=== PATIENT | female | born 1960 | race Caucasian/White ===

== ENCOUNTER 2017-11-16 10:57 | Emergency (ER) | payer OTHER, SELFPAY ==
[2017-11-16 10:58] VITALS: BP 134/70; PULSE 72; RESP 16; TEMP 36.9; O2SAT 98; BMI 29.9
--- NOTE | 2017-11-16 11:17 | CT_ITS ---
STUDY: CT ABDOMEN AND PELVIS WITHOUT CONTRAST REASON FOR EXAM: Female, 57 years old. Abdominal pain and constipation. RADIATION DOSAGE (If Supplied By Facility): CTDIvol = ( 10.97 ) mGy, DLP = ( 545.32 ) mGycm TECHNIQUE: Transaxial images were obtained from the dome of the diaphragm to the symphysis pubis without oral contrast, and without intravenous contrast. Sagittal and coronal images were reconstructed. Individualized dose optimization techniques were used for this CT. COMPARISON: Comparison is made with prior study dated September 30, 2014. FINDINGS: The visualized lung bases are unremarkable. The visualized portions of the heart are within normal limits. Normal liver. The patient is status post cholecystectomy. Normal spleen. Normal pancreas. Normal bilateral adrenal glands. Mild degree of right hydronephrosis. This is unchanged. Normal left kidney. There is a small hiatal hernia. Normal small intestine. There are multiple colonic diverticula consistent with diverticulosis. The appendix is visualized and appears normal. There is scattered atherosclerotic calcification of the abdominal aorta, without a demonstrated aneurysm. Normal inferior vena cava. Normal retroperitoneum. Normal urinary bladder. There is a 3.5 cm x 3.9 cm cyst in the left ovary. Normal abdominal wall. There are diffuse degenerative changes of the visualized lumbar spine. Mild degree of loss of height of the superior endplate of the T12 vertebrae. CT/Abdomen/Pelvis without Cont IMPRESSION: 3.5 cm x 3.9 cm left ovarian cyst. This is slightly enlarged and prior examination. Sigmoid diverticulosis. Electronically Signed: Joaquin Ellington MD at 12:34 EDT Tel [phone], Service support ,
[2017-11-16] MEDS: 0.9% Normal Saline 1,000 ML 1000 ML IV (11:27)
[2017-11-16] MEDS: Ondansetron 4 MG/2 ML Vial IV (11:28)
[2017-11-16] MEDS: Morphine 4 MG/ML Syringe IV ×2 (11:28→12:53)
[2017-11-16 11:33] LABS: Absolute Lymphocyte Count 1.62 X10^3/ul (0.83-4.51); Hemoglobin 12.6 g/dl (12.0-15.0); Lymphocyte # 1.62 X10^3/ul (4.0); Lymphocyte % 26.1 % (19-41); Mean Corp Hgb Conc 34.1 g/gl (32-36); Mean Corpuscular Hgb 29.1 pg (27.0-32.0); Mean Corpuscular Volume 85.5 fL (81-99); Mean Platelet Vol. 10.1 fl (6.2-12.0); Monocyte# 0.62 X10^3/uL; Neutrophil # 3.95 X10^3/uL (2.7-7.7); Neutrophil % 63.7 % (47-70); Platelet Count 281 K/mm3 (150-450); RBC Distribution Width CV 12.4 % (11.6-14.6); Red Blood Count 4.33 M/mm3 (4.2-5.4); White Blood Count 6.2 K/mm3 (4.4-11.0)
[2017-11-16 11:34] LABS: POSITIVE COUNT NO; POSITIVE DIFFERENTIAL NO; POSITIVE MORPHOLOGY NO
[2017-11-16 11:54] LABS: AST(SGOT) 57 U/L (15-37); Alanine Aminotransfer ALT/SGPT 72 U/L (13-56); Albumin, Serum 3.7 g/dL (3.2-5.0); Alkaline Phosphatase 79 U/L (45-117); Anion Gap 6 (5-15); BUN 11 mg/dL (7-18); BUN/Creat Ratio 15.5 RATIO (10-20); Bilirubin, Direct 0.18 mg/dL (0.00-0.30); Calcium,Total 9.2 mg/dL (8.5-10.1); Chloride 107 mmol/L (98-107); Creatinine, Serum 0.71 mg/dL (0.55-1.02); EST Glomerular Filtration Rate 89 mL/min (>60); Est Glom Filt Rate - Afr Amer 108 mL/min (>60); Estimated Creatinine Clearance 76.77 ml/min; Globulin 3.7 g/dL (2.2-4.2); Glucose 111 mg/dL (74-106); Lipase 138 U/L (73-393); Potassium 3.9 mmol/L (3.5-5.1); Protein, Total 7.4 g/dL (6.4-8.2); Sodium Level 140 mmol/L (136-145)
[2017-11-16 12:26] LABS: Bacteria 0 SEEN /hpf (None Seen); Mucous, Urine 0 SEEN /hpf (<or=2+); Red Blood Cells-Urine 0 SEEN /hpf (0-5); Squamous Epithelial Cells - UA 0 SEEN /hpf (5-10)
[2017-11-16 12:31] LABS: Color, Urine Yellow (Yellow); Glucose, Dipstick Normal (Normal); Ketone-Dipstick Negative (Negative); Leukocyte Esterase-Dipstick Negative /ul (Negative); Nitrite-Dipstick Negative (Negative); Occult Blood-Urine 10 /ul (Negative); Protein-Dipstick Negative (Negative); Specific Gravity, Urine 1.005 (1.002-1.030); Urine Bilirubin Dipstick Negative (Negative); Urine Clarity Clear (Clear); Urine Urobilinogen Normal (Normal)
[2017-11-16 12:39] LABS: White Blood Cells 0-5 SEEN /hpf (0-5)
--- NOTE | 2017-11-16 12:43 | US_ITS ---
STUDY: ULTRASOUND OF THE FEMALE PELVIS - COMPLETE REASON FOR EXAM: Female, 57 years old. Ovarian cyst seen on CT scan. LMP: The patient is postmenopausal. TECHNIQUE: Transvaginal TECHNICAL QUALITY: Adequate. COMPARISON: None. FINDINGS: The uterus is anteverted and is in a midline position. The uterus measures 7.8 cm x 4.7 cm x 3.5 cm. Normal uterine cervix. The endometrium measures 3.8 mm in thickness, and is hyperechoic. There is no demonstrated endometrial mass. There is a 1 cm x 1.1 cm fibroid in the lower uterine segment. I.U.D. - The patient does not have an I.U.D. The right ovary is non-visualized. The left ovary is visualized. The left ovary measures 4 cm x 2.7 cm x 2.9 cm. There is a 3.6 cm x 2.6 cm cyst in the left ovary. There is no visualized left adnexal mass or complex lesion. There is normal arterial and normal venous vascularity. There is no fluid in the cul-de-sac. Polycystic ovary disease: No. US/Transvaginal Non- IMPRESSION: 3.6 cm x 3.6 cm cyst in the left ovary. Small fibroid seen in the lower uterine segment. Electronically Signed: Joaquin Ellnigton MD at 14:26 EDT Tel [phone], Service support ,
[2017-11-16 13:02] VITALS: BP 123/73; PULSE 60; RESP 16; O2SAT 100
--- NOTE | 2017-11-16 14:55 | ED.DCSUM_ITS ---
- ER Visit Summary Date of Service: 11/16/17 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: Abdominal pain History of Present Illness: The patient is a [address] Grace and Dr. Smith. She reports that she has lower abdominal pain began 2 weeks ago. She was diagnosed clinically with diverticulitis and was placed on Cipro and Flagyl. She finished these 4 days ago and is continuing to have discomfort. Patient claims of a stabbing pain is 10 at 10 worsening a 10 currently. Is worsened by movement or walking. Is relieved by remaining still. She has had nausea without vomiting. She reports her last bowel was 1 week ago. Typically she has a bowel movement daily. She denies any dysuria or frequency. Physical Examination: Vitals: Stable. Afebrile. General: Well-nourished and well-developed. Head: Normocephalic atraumatic. Neck: Supple, no lymphadenopathy. No JVD. Nontender. Cardiovascular: Regular rate and rhythm. No murmurs. Respiratory: No respiratory distress. Clear to auscultation bilaterally. Abdominal: Soft, moderate suprapubic tenderness to palpation, nondistended, normal bowel sounds. No guarding, rebound, or peritoneal signs. Rectal: No stool in the vault. Back: Nontender. Extremities: Nontender, no edema. Skin: Normal color, no rash. Neurologic: Alert and oriented ?3. Cranial nerves II through XII are intact. Normal strength and sensation. Psych: Normal affect. Test Results: CBC is normal. Chem-7 is more for glucose 111. LFTs are marked for an ALT of 72 and AST 57. Lipase is normal. Transvaginal ultrasound shows a 3.6 x 3.6 cm left ovarian cyst. Once admitted fibroid. CT flank shows a normal appendix and a 3.5 x 3.9 cm left ovarian cyst. Diverticulosis, but no diverticulitis. Normal appendix. Emergency Department Course and Treatment: Patient initially had a CT scan. Due to the concern of an ovarian cyst in summary that is postmenopausal the ultrasound and a CA 125 were ordered. Treatment Plan: Patient be discharged with magnesium citrate. She is instructed to follow-up with Dr. Grace in 1-2 days if she does not have a bowel movement with this. [facility] is [facility] for further evaluation of the ovarian cyst. Return to the emergency department for any worsening symptoms. Disposition: To home in improved and stable condition. Impression: 1. Constipation. 2. Left ovarian cyst. 3. Diverticulosis. This note was generated with [employer] dictation software. It may contain incorrect words, spelling, and punctuation that were not noted in review of the chart prior to signing ED Disposition - Plan for ED Patient: Disposition: Home or Assisted Living 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: Abd Pain Instructions: ED Constipation, ED Cyst Ovarian Prescriptions: Magnesium Citrate [Citrate Of Magnesia] 300 ml PO X1 #1 bottle Referrals: Cleo Maynard CNM [Certified Nurse [employer]] - 3-5 Days Bar Grace MD [STAFF PHYSICIAN] - 1-2 Days if not improving
[2017-11-16 15:03] VITALS: BP 118/75; PULSE 71; RESP 15; O2SAT 98
[2017-11-18 16:05] LABS: Cancer Antigen 125 2303 15.8 U/mL (0.0-38.1)
== END 2017-11-16 15:05 | disposition home or self-care (01) ==
PROVIDERS: Emergency Provider Emergency Medicine; Family Provider Family Medicine; PCP Family Medicine
DX: K59.00 Constipation, unspecified (principal); N83.202 Unspecified ovarian cyst, left side; K57.90 Diverticulosis of intestine, part unspecified, without perforation or abscess without bleeding; E03.9 Hypothyroidism, unspecified; Z78.0 Asymptomatic menopausal state; Z79.82 Long term (current) use of aspirin; Z79.899 Other long term (current) drug therapy
CPT/HCPCS: 74176; 76830; 80048; 80076; 81001; 83690; 85025; 86304; 96361; 96374; 96375; 96376; 99283; J7030; A4216; J2405

== ENCOUNTER → 2017-11-29 07:26 | Outpatient (CLI) | payer OTHER, SELFPAY ==
--- NOTE | 2017-11-29 08:35 | RAD_ITS ---
STUDY: BARIUM ENEMA. REASON FOR EXAM: Female, 57 years old. History of prior colon resection. FLUOROSCOPY TIME (if supplied): (1:00) minutes/seconds TECHNIQUE: A health safety manager film was obtained. Following this, barium was introduced retrograde through the rectum. The entire colon was opacified. COMPARISON: None. FINDINGS: On the health safety manager film, the gas pattern is unremarkable. Phleboliths are seen in the pelvis. Contrast was introduced retrograde through the rectum. Entire colon was opacified. There is diffuse diverticulosis of the sigmoid colon and left hemicolon without radiographic cancer of diverticulitis. Residual fecal material is seen in the right hemicolon. A polypoid lesion cannot be ruled out. There is no evidence of antegrade or retrograde obstruction to the flow of contrast. RAD/Barium Enema w/Air Contrast IMPRESSION: Diverticulosis of the left hemicolon without evidence of obstruction or narrowing. Scattered residual fecal material in the right hemicolon limiting assessment for small polyps. Electronically Signed: Joaquin Ellington MD at 14:24 EDT Tel [phone], Service support ,
== END ==
PROVIDERS: Family Provider Family Medicine; PCP Family Medicine; Visit Provider Surgery
DX: R10.9 Unspecified abdominal pain (principal)
CPT/HCPCS: 74280

== ENCOUNTER → 2017-12-22 12:02 | Outpatient (CLI) | payer OTHER, SELFPAY ==
--- NOTE | 2017-12-22 10:50 | COLBX_PTH ---
PATIENT: EREN HAWLEY LOC: [facility] U#:[id number] AGE/SX: 65/F ROOM: RE12/22/[address]: Dr. Lola Grace MD : 1960 BED: DIS: SPEC #: [id number] RECD: 12/22/17 12:03 STATUS: ALMA NKECHI #: [id number] ANASTASIYA: 12/22/17 10:[address]: Lola Grace DEPT: SURGICAL PATHOLOGY RECD BY: Joe Lowery ENTERED: 12/22/17 13:08 SP TYPE: COLON BX OTHR DR: MD Dr. Joe Hinson MD Tissues: Sigmoid colon biopsy Procedures: Surgery Specimen Level IV HEADER OPERATION: Colonoscopy with biopsy PRE-OP DIAGNOSIS: K57.92, R93.3, R10.32, K59.07 TISSUE SUBMITTED: Sigmoid colon biopsy MICROSCOPIC DIAGNOSIS Sigmoid colon, biopsy: Fragments of colonic mucosa with focal changes consistent with ischemic colitis. SJ:selvin 12/23/17 COMMENT The results were reported to Dr. Grace on 01/23/18. Please make reference to previous specimen ([id number]) sigmoid colon, colectomy with diagnosis of diverticulosis and diverticulitis. This case has been reviewed in consultation with Dr. Odonnell who concurs with the above diagnosis. MICROSCOPIC DESCRIPTION Slides are reviewed. GROSS DESCRIPTION Received in fixative is one container labeled with the patient's name and designated sigmoid biopsy. The specimen consists of two pieces of lester soft tissue measuring in aggregate 0.5 x 0.2 x 0.1 cm. The specimen is totally submitted in one cassette. / Joceline 12/22/17 TC:5 CPT: 91664
== END ==
PROVIDERS: Family Provider Family Medicine; PCP Family Medicine; Visit Provider Surgery
DX: K57.92 Diverticulitis of intestine, part unspecified, without perforation or abscess without bleeding (principal); R93.3 Abnormal findings on diagnostic imaging of other parts of digestive tract; R10.32 Left lower quadrant pain; K59.00 Constipation, unspecified
CPT/HCPCS: 88305

== ENCOUNTER 2017-12-23 05:39 | Inpatient (IN) | payer OTHER, SELFPAY ==
[2017-12-16 14:05] VITALS: BP 107/76; PULSE 69; RESP 17; TEMP 36.8; O2SAT 98; BMI 29.8
--- NOTE | 2017-12-16 14:29 | SDCEKG_ITS ---
Test Reason : Blood Pressure : / mmHG Vent. Rate : 063 BPM Atrial Rate : 063 BPM P-R Int : 170 ms QRS Dur : 084 ms QT Int : 412 ms P-R-T Axes : 033 -10 037 degrees QTc Int : 421 ms Normal sinus rhythm Nonspecific T wave abnormality Confirmed by SAMRA BHATT, COLT ([id number]), news editor ANI ROMERO ([id number]) on 12/20/2017 2:34:10 PM Referred By: Joe Ohara Confirmed By:COLT CABRALES MD
[2017-12-23] VITALS (15 sets, daily range): BP systolic 90–116; BP diastolic 49–70; PULSE 66–90; RESP 14–18; TEMP 36.6–38.1; O2SAT 94–100; BMI 29.8
--- NOTE | 2017-12-23 07:15 | OV_PTH ---
PATIENT: EREN HAWLEY LOC: [facility] U#:[id number] AGE/SX: 57/F ROOM: WY325 RE12/23/[address]: Dr. Joe Ohara MD : 1960 BED: 1 DIS: 12/26/2017 SPEC #: [id number] RECD: 12/24/17 10:41 STATUS: ALMA REIsrael #: [id number] ANASTASIYA: 12/23/17 07:[address]: Joe Ohara DEPT: SURGICAL PATHOLOGY RECD BY: Joe Lowery ENTERED: 12/24/17 11:49 SP TYPE: OVARY OTHR DR: Dr. Yasir Smith MD Tissues: A - Right ovary B - Left ovary C - Colon, NOS D - Colon Donuts E - Colon Donuts Procedures: Surgery Specimen Level III Surgery Specimen Level V HEADER OPERATION: Redo laparoscopic sigmoid colectomy/low anterior resection PRE-OP DIAGNOSIS: Lower abdominal pain; diverticulosis of large intestine without perforation or abscess without bleeding; nausea TISSUE SUBMITTED: A ? Right fallopian tube and ovary, B ? Left fallopian tube and ovary, C ? Sigmoid colon and appendix, D ? Distal donut (rectal), E ? Proximal donut (sigmoid) MICROSCOPIC DIAGNOSIS A. Right fallopian tube and ovary: Ovary ? 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 Mesothelial inclusion cysts. Fallopian tube - no pathologic diagnosis. See comment. B. Left fallopian tube and ovary: Ovary - simple serous cystadenoma (3 cm in greatest dimension). Fallopian tube - no pathologic diagnosis. C. Sigmoid colon and appendix: Diverticulosis and diverticulitis. Appendix, no pathologic diagnosis. Pericolonic lymph node with reactive changes. See comment. D. Distal donut (rectal): Colonic donut, no pathologic diagnosis. E. Proximal donut (sigmoid): Colonic donut, no pathologic diagnosis. SJ:selvin 12/28/17 COMMENT A. Calcification is noted in the area of papillary serous cystadenoma and also in the mesothelial inclusion cyst. C. The largest possible lymph node consists of an area of fat necrosis and inflammation. Please make reference to previous specimen ([id number]) sigmoid colon, biopsy with diagnosis of fragments of colonic mucosa with focal changes consistent with ischemic colitis and ([id number]) sigmoid colon, colectomy with diagnosis of diverticulosis and diverticulitis. MICROSCOPIC DESCRIPTION Slides are reviewed. GROSS DESCRIPTION A - Received in fixative is one container labeled with the patient's name and designated right fallopian tube and ovary. The specimen consists of a fallopian tube and ovary. The fallopian tube measures 3 cm in length and 0.6 cm in diameter. The fimbrial end is identified. No tubo-ovarian adhesions are noted. Also present in the container is a detached piece of tubular tissue, a possible portion of fallopian tube, measuring 1 cm in length and 0.3 cm in diameter. The ovary measures 3 x 2 x 0.8 cm. The surface of the ovary shows a polypoid tissue measuring 0.5 cm in greatest dimension. Wine And Spirits Clerk sections are submitted in three cassettes as follows: 1 ? fallopian tube and also possible detached fragment of fallopian tube, 2 & 3 ? ovary (cassette 2 also contains the polypoid lesion on the surface). Almost 90% of the ovary is submitted. / SJ:rg 12/24/17 B - Received in fixative is one container labeled with the patient's name and designated left fallopian tube and ovary. The specimen consists of a fallopian tube and detached ovary. The fallopian tube measures 3 cm in length and 0.5 cm in diameter. The fimbrial end is identified. Sections do not reveal any mass lesion. The soft to cystic ovary measures 3 x 3 x 2.5 cm and weighs 18 gm. The outer surface is smooth without any cut lesion. Almost the entire ovary is replaced by a cyst filled with clear fluid. The cyst wall is smooth and measures up to 0.2 cm in thickness. No mass lesions are identified. Wine And Spirits Clerk sections are submitted in three cassettes as follows: 1 ? fallopian tube, 2 & 3 ? ovary. / SJ:rg 12/24/17 C - Received in fixative is one container labeled with the patient's name and designated sigmoid colon and appendix. The specimen consists of a previously, partially opened segment of colon measuring 15 cm in length. The serosal surface is congested. One resection margin is open and the other resection margin is stapled. The mucosa shows focal area of bluish discoloration. Also present in the container is an appendix measuring 4.5 cm in length and up to 0.5 cm in diameter. The attached periappendiceal adipose tissue measures up to 1 cm in thickness. Sections of the appendix reveal almost obliterated lumen. The entire appendix is submitted in one cassette, #1. More sections and dictation will follow after additional fixation. / : 12/24/17 Sections reveal multiple diverticula. A few of the diverticula are filled with fecal material. No obviously ruptured diverticula are noted. Blue dye discoloration is noted in the area of the diverticula. Sections of pericolonic adipose tissue reveal multiple lymph nodes. The largest lymph node measures 1.5 cm in greatest dimension. Wine [employer] Spir[employer] Clerk sections are submitted in six cassettes as follows: 1 ? appendix, 2 ? resection margin, open resection margin is inked black, 3 & 4 ? diverticula, 5 ? largest lymph node telephone service representative section, 6 ? pericolonic adipose tissue with possible lymph nodes. / : 12/27/17 D - Received in fixative is one container labeled with the patient's name and designated distal donut (rectal). The specimen consists of a donut-shaped piece of colonic tissue measuring 1.5 x 1 x 0.5 cm. No lesion is identified. The specimen is sectioned and submitted entirely in one cassette. / : 12/24/17 E - Received in fixative is one container labeled with the patient's name and designated proximal donut (sigmoid). The specimen consists of a donut-shaped piece of colonic tissue measuring 2 x 1.5 x 0.5 cm. Multiple sutures are noted. Wine [employer] Spir[employer] Clerk sections are submitted in one cassette. / : 12/24/17 TC:1 CPT: 37803 x3, 47285 x3
--- NOTE | 2017-12-23 08:03 | PCM.OPRPT ---
Report of Operation Date of Procedure: 12/23/17 Pre-Operative Diagnosis: Recurrent diverticulitis stents requested by general surgery Post-Operative Diagnosis: Same Surgery/Procedure Performed:: Cystoscopy and bilateral stent placement Description of Surgical Findings:: 57-year-old female was positioned on the table in dorsal lithotomy position she was under anesthesia the urethra and vaginal area were prepped and draped in usual sterile fashion when the bladder with a 21 [place] cystourethroscope entire length of the urethra is normal the bladder was normal no tumors or stones seen within the bladder I then cannulated the normal left ureteral orifice and advanced Pollack catheter all the way to the kidney, I then cannulated the right ureteral orifice and advanced the Pollack catheter over to the kidney drain the bladder and put a catheter in and the Pollack catheters were secured to the bag patient was then released to general surgery. Type of Anesthesia:: General Drains: stents - Admit VTE Documentation VTE Present on Admission: No VTE Mechan Device Prophylaxis: SCD's
--- NOTE | 2017-12-23 08:32 | PCM.OPRPT ---
Report of Operation Date of Procedure: 12/23/17 Pre-Operative Diagnosis: (1) Thickened endometrium (2) Persistent left ovarian cysts Post-Operative Diagnosis: Same Surgery/Procedure Performed:: (1) Attempted dilation of cervix Type of Anesthesia:: General Drains: stents Description of Procedure: Patient had stents placed by . Attention then turned to vaginal cavity where anterior cervix grasped with tenaculum. Cervix was stenotic & unable to be dilated. Thus planned hysteroscopy with D&C was aborted. Patient then prepped for laparoscopic surgery & case turned over to . Once the ovaries were identified & I assisted in the removal.
[2017-12-23] MEDS: Lubricating Jelly 60 GM Tube 30 GM TOPICAL ×2 (08:41)
[2017-12-23] MEDS: Bupivacaine Mpf 0.5% 30 ML VIAL (12:38)
--- NOTE | 2017-12-23 12:38 | PCM.OPRPT ---
Report of Operation Date of Procedure: 12/23/17 Pre-Operative Diagnosis: (1) Thickened endometrium (2) Persistent left ovarian cysts, LLQ pain, stenosis at 15-20cm on colonoscopy, ? recurrent diverticulitis Post-Operative Diagnosis: (1) Thickened endometrium (2) Persistent left ovarian cysts, LLQ pain, stenosis at 15-20cm on colonoscopy, ? recurrent diverticulitis, area of stenosis distal to anastomosis, normal appendix Surgery/Procedure Performed:: laparoscopic lysis of adhesions, left oopherectomy, right salpingoopherectomy, left salpingectomy, redo laparoscopic sigmoid colectomy/low anterior resection, laparoscopic mobilization of the splenic flexure, laparoscopic appendectomy Description of Surgical Findings:: as above dentofacial orthopedics dentist: Aniya Wadsworth dentofacial orthopedics dentist: Lola Grace Type of Anesthesia:: General Anesthesiologist: Heraclio Toth - ASA2 Specimen's removed: left ovary, right tube and ovary, rectosigmoid, left tube, donuts - proximal and distal , appendix Drains: stents - removed - dowd - 1200 Estimated Blood Loss (mL): 100 Fluids Replaced: 2750 Description of Procedure: The patient was brought to the operating suite. Sign in was performed verifying patient, site, procedure, position, and DVT prophylaxis with SCDs. Patient received Cefotetan 2gm. Preoperative bowel prep of mechanical and antibiotic comprised of GoLYTELY and then neomycin and Flagyl 1 g 3 doses evening before was given. Following induction of general anesthetic, the patient was placed in a modified lithotomy position and care being taken to or by pressure points in the legs and arms. An upper body strap was placed and a upper body warmer was placed. Dr. Fred Johnson was present. He performed cystoscopy and bilateral ureteral catheter placement. this was dictated under separate cover. Dr. Walt Olson was present. She was planning to perform hysteroscopy and D&C. Due to a very stenotic cervical os, she could not perform dilation in this part of the procedure was aborted. Following this, a rectal washout was performed with dilute Betadine solution. The patients abdomen and perineal area were then prepped and draped in the usual fashion. Timeout was performed verifying patient, site, position. Local anesthetic was injected just below the umbilicus. Incision made and dissection carried down to the umbilical root fascia. 2 stay sutures were placed. Incision made in the fascia, the peritoneum entered under direct visualization. A 10 mm Galloway trocar was inserted and secured with the stay sutures. Pneumoperitoneum to 15 mmHg was insufflated. patient was noted to have midline, small bowel adhesions 2 5mm ports were placed in the right lateral area and later in the left paramedian position and a 10/12 port were placed in the right lower quadrant inferior laterally. Adhesions were taken down using Harmonic scalpel. Visual inspection revealed a normal-appearing liver with no significant abnormalities. there were dense adhesions of the sigmoid colon to the right and left pelvis. Initially the areas marked with Ruchi ink by Dr. Grace yesterday were not well visible. These adhesions were taken down sharply and using the Harmonic scalpel. Dr. Olson was present for this portion of the case. There was planned to perform bilateral salpingo-oophorectomy due to abnormal appearing ovaries on ultrasound. The left ovary was more atypical in appearance than the right. With mobilization of where the sigmoid colon was adherent to the left tubo-ovarian structures, the left ovary was able to be identified, the right tube structures were densely adherent to the lateral peritoneum. This peritoneum and partially removed when the patient had her previous segmental sigmoid resection for acute diverticulitis. due to the degree of inflammation and adhesions and the fact that the iliac vessels could be seen, but the ureter could not clearly be identified, a left oophorectomy was performed by Dr. Olson and myself, but initially the tube structure was left intact. next, mobilization of the adhesions to the right tube and ovary structures were undertaken. The patient had a previous tubal ligation. The right tube and ovary and the remnant of the tube attached to the uterus proximal to the tubal ligation was fully mobilized and dissected with the Harmonic scalpel. There was some oozing from the area next to the uterus which was controlled with electrocautery. Once both ovaries and the right tube were removed, they were placed into an Endobag and remained in the right abdomen. These were removed. When the incision was made later on in the case to remove the sigmoid colon. Once this was completed, mobilization the avascular plane was undertaken from the ascending colon down to the area of the mid sigmoid. As the patient had undergone a previous segmental sigmoid resection with handsewn anastomosis, there were dense adhesions as described previously towards the left side into the left gutter. However, a window could be seen below the previous resected segment anastomosis. As this window was entered. This allowed mobilization more proximally and then somewhat distally with the colon proximal and distal anastomosis similarly mobilized off of the adhesions to the left pelvic sidewall, leaving the ileocolic residual mesentery in place. As mobilization progressed, the left and right ureters were able to be visualized and manipulated with palpation via the grasper instruments feeling resistance from the catheters assuring that the ureters were intact.. Once this left-sided mobilization was undertaken, dissection carried down to the area posterior to the rectum. there were noted to be very dense adhesions and chronic induration posterior to the area that was marked by Dr. Grace. Her Ruchi ink was clearly identifiable and a thickened chronically inflamed area somewhat distal to the previous anastomosis. Once this was fully mobilized, attention was turned to mobilization of the splenic flexure. Dissection was carried up along the descending colon to the splenic flexure. With great care taken to avoid injury to the splenic flexure, the marginal artery or the spleen itself. Dissection was also carried out dividing the lesser sac at approximately abdominal midline. In freeing up the lesser sac, dividing it with Harmonic scalpel up to and around the splenic flexure. The pancreas was clearly visualized. At this point, the splenic flexure and distal transverse colon were fully mobilized. at this point with good dissection. The pelvis a 60 mm echelon stapler with a thick load was placed and fired to transect the rectum. With full dissection of the mesentery and full mobilization the colon, the umbilical incision was extended and a wound protector placed. The sigmoid colon were delivered through the wound protector. At this point at the planned transection point of the proximal sigmoid colon, the pericolonic were fully mobilized to the margin of the bowel using the harmonic scalpel. The bowel was transected family with a 10 blade scalpel. A 29 mm CEA circular stapler anvil was then placed in the descending colon region and a 2-0 Prolene pursestring suture was used to close the bowel around the anvil. the bowel seemed to tent over the DIAMOND mesentery remnant and the ureter and left tubo-ovarian structure. Harmonic Scalpel was used to divide and dissect this tubo-ovarian structure off of both the left ureter which was clearly identified throughout and the adhesions to the DIAMOND remnant. This allowed for good laying of the descending colon down into the pelvis. At this point, Dr Grace proceeded down to the rectum. Rigid proctoscopy was performed after flooding the pelvis with saline. Insufflation demonstrated no leak at the rectal staple line. The staple line was felt to be approximately 13 cm. Next the 29 CEA stapler was lubricated and placed through the rectum up to the staple line. The spike was then opened just anterior to the previous echelon stapler line and the anvil properly seated onto the stapler and brought down to mid gap. The stapler was fired released and withdrawn from the rectum. The proximal and distal doughnuts were noted to be intact. Repeat proctoscopy was again performed again with the pelvis being flooded with saline. Air left in the rectum with insufflation and there was no intra-abdominal leakage noted. The anastomosis was noted to be at 13 cm from the anal verge I performed an appendectomy dividing the mesoappendix with the Harmonic scalpel and the base of the appendix with the regular load stapler. The appendix was removed the right lower quadrant port site. Pneumoperitoneum was released and the umbilical incision was closed with running 0 PDS sutures with the 2 sutures meeting and closed just above the umbilicus. Pneumoperitoneum was reestablished. The right lower quadrant fascial defect was closed with a running 0 PDS suture. Visual inspection revealed no material adhered to the midline closure. The 5mm ports were removed under direct visualization with no signs of bleeding. Pneumoperitoneum was released. Right lower quadrant fascial suture was secured. Subcutaneous tissue at the level of the umbilicus reapproximated with interrupted 3-0 Vicryl sutures. Skin was closed with interrupted and running 4-0 Monocryl subcuticular sutures. Steri-Strips and bandages were applied. The patient was taken from lithotomy position and placed in the standard supine position. The Dowd was removed. the ureteral catheters were removed and they were noted to be intact. All sponge and instrument counts were correct. The patient was extubated. The patient was brought to recovery room in stable condition. - Admit VTE Documentation VTE Present on Admission: No VTE Mechan Device Prophylaxis: SCD's VTE Pharm Prophylaxis ordered?: Yes
--- NOTE | 2017-12-23 12:43 | OP.PCM_ITS ---
Report of Operation Date of Procedure: 12/23/17 Pre-Operative Diagnosis: (1) Thickened endometrium (2) Persistent left ovarian cysts, LLQ pain, stenosis at 15-20cm on colonoscopy, ? recurrent diverticulitis Post-Operative Diagnosis: (1) Thickened endometrium (2) Persistent left ovarian cysts, LLQ pain, stenosis at 15-20cm on colonoscopy, ? recurrent diverticulitis , area of stenosis distal to anastomosis, normal appendix Surgery/Procedure Performed:: laparoscopic lysis of adhesions, left oopherectomy , right salpingoopherectomy, left salpingectomy, redo laparoscopic sigmoid colectomy/low anterior resection, laparoscopic mobilization of the splenic flexure, laparoscopic appendectomy Description of Surgical Findings:: as above jewel sawyer: Aniya Wadsworth jewel sawyer: Lola Grace Type of Anesthesia:: General Anesthesiologist: Heraclio Toth - ASA2 Specimen's removed: left ovary, right tube and ovary, rectosigmoid, left tube , donuts - proximal and distal , appendix Drains: stents - removed - dowd - 1200 Estimated Blood Loss (mL): 100 Fluids Replaced: 2750 Description of Procedure: The patient was brought to the operating suite. Sign in was performed verifying patient, site, procedure, position, and DVT prophylaxis with SCDs. Patient received Cefotetan 2gm. Preoperative bowel prep of mechanical and antibiotic comprised of GoLYTELY and then neomycin and Flagyl 1 g 3 doses evening before was given. Following induction of general anesthetic, the patient was placed in a modified lithotomy position and care being taken to or by pressure points in the legs and arms. An upper body strap was placed and a upper body warmer was placed. Dr. Fred Johnson was present. He performed cystoscopy and bilateral ureteral catheter placement. this was dictated under separate cover. Dr. Walt Olson was present. She was planning to perform hysteroscopy and D& C. Due to a very stenotic cervical os, she could not perform dilation in this part of the procedure was aborted. Following this, a rectal washout was performed with dilute Betadine solution. The patient?s abdomen and perineal area were then prepped and draped in the usual fashion. Timeout was performed verifying patient, site, position. Local anesthetic was injected just below the umbilicus. Incision made and dissection carried down to the umbilical root fascia. 2 stay sutures were placed. Incision made in the fascia, the peritoneum entered under direct visualization. A 10 mm Galloway trocar was inserted and secured with the stay sutures. Pneumoperitoneum to 15 mmHg was insufflated. patient was noted to have midline, small bowel adhesions 2 5mm ports were placed in the right lateral area and later in the left paramedian position and a 10/12 port were placed in the right lower quadrant inferior laterally. Adhesions were taken down using Harmonic scalpel. Visual inspection revealed a normal-appearing liver with no significant abnormalities. there were dense adhesions of the sigmoid colon to the right and left pelvis. Initially the areas marked with Ruchi ink by Dr. Grace yesterday were not well visible. These adhesions were taken down sharply and using the Harmonic scalpel. Dr. Olson was present for this portion of the case. There was planned to perform bilateral salpingo-oophorectomy due to abnormal appearing ovaries on ultrasound. The left ovary was more atypical in appearance than the right. With mobilization of where the sigmoid colon was adherent to the left tubo- ovarian structures, the left ovary was able to be identified, the right tube structures were densely adherent to the lateral peritoneum. This peritoneum and partially removed when the patient had her previous segmental sigmoid resection for acute diverticulitis. due to the degree of inflammation and adhesions and the fact that the iliac vessels could be seen, but the ureter could not clearly be identified, a left oophorectomy was performed by Dr. Olson and myself, but initially the tube structure was left intact. next, mobilization of the adhesions to the right tube and ovary structures were undertaken. The patient had a previous tubal ligation. The right tube and ovary and the remnant of the tube attached to the uterus proximal to the tubal ligation was fully mobilized and dissected with the Harmonic scalpel. There was some oozing from the area next to the uterus which was controlled with electrocautery. Once both ovaries and the right tube were removed, they were placed into an Endobag and remained in the right abdomen. These were removed. When the incision was made later on in the case to remove the sigmoid colon. Once this was completed, mobilization the avascular plane was undertaken from the ascending colon down to the area of the mid sigmoid. As the patient had undergone a previous segmental sigmoid resection with handsewn anastomosis, there were dense adhesions as described previously towards the left side into the left gutter. However, a window could be seen below the previous resected segment anastomosis. As this window was entered. This allowed mobilization more proximally and then somewhat distally with the colon proximal and distal anastomosis similarly mobilized off of the adhesions to the left pelvic sidewall , leaving the ileocolic residual mesentery in place. As mobilization progressed, the left and right ureters were able to be visualized and manipulated with palpation via the grasper instruments feeling resistance from the catheters assuring that the ureters were intact.. Once this left-sided mobilization was undertaken, dissection carried down to the area posterior to the rectum. there were noted to be very dense adhesions and chronic induration posterior to the area that was marked by Dr. Grace. Her Ruchi ink was clearly identifiable and a thickened chronically inflamed area somewhat distal to the previous anastomosis. Once this was fully mobilized, attention was turned to mobilization of the splenic flexure. Dissection was carried up along the descending colon to the splenic flexure. With great care taken to avoid injury to the splenic flexure, the marginal artery or the spleen itself. Dissection was also carried out dividing the lesser sac at approximately abdominal midline. In freeing up the lesser sac, dividing it with Harmonic scalpel up to and around the splenic flexure. The pancreas was clearly visualized. At this point, the splenic flexure and distal transverse colon were fully mobilized. at this point with good dissection. The pelvis a 60 mm echelon stapler with a thick load was placed and fired to transect the rectum. With full dissection of the mesentery and full mobilization the colon, the umbilical incision was extended and a wound protector placed. The sigmoid colon were delivered through the wound protector. At this point at the planned transection point of the proximal sigmoid colon, the pericolonic were fully mobilized to the margin of the bowel using the harmonic scalpel. The bowel was transected family with a 10 blade scalpel. A 29 mm CEA circular stapler anvil was then placed in the descending colon region and a 2-0 Prolene pursestring suture was used to close the bowel around the anvil. the bowel seemed to tent over the DIAMOND mesentery remnant and the ureter and left tubo-ovarian structure. Harmonic Scalpel was used to divide and dissect this tubo-ovarian structure off of both the left ureter which was clearly identified throughout and the adhesions to the DIAMOND remnant. This allowed for good laying of the descending colon down into the pelvis. At this point, Dr Grace proceeded down to the rectum. Rigid proctoscopy was performed after flooding the pelvis with saline. Insufflation demonstrated no leak at the rectal staple line. The staple line was felt to be approximately 13 cm. Next the 29 CEA stapler was lubricated and placed through the rectum up to the staple line. The spike was then opened just anterior to the previous echelon stapler line and the anvil properly seated onto the stapler and brought down to mid gap. The stapler was fired released and withdrawn from the rectum. The proximal and distal doughnuts were noted to be intact. Repeat proctoscopy was again performed again with the pelvis being flooded with saline. Air left in the rectum with insufflation and there was no intra- abdominal leakage noted. The anastomosis was noted to be at 13 cm from the anal verge I performed an appendectomy dividing the mesoappendix with the Harmonic scalpel and the base of the appendix with the regular load stapler. The appendix was removed the right lower quadrant port site. Pneumoperitoneum was released and the umbilical incision was closed with running 0 PDS sutures with the 2 sutures meeting and closed just above the umbilicus. Pneumoperitoneum was reestablished. The right lower quadrant fascial defect was closed with a running 0 PDS suture. Visual inspection revealed no material adhered to the midline closure. The 5mm ports were removed under direct visualization with no signs of bleeding. Pneumoperitoneum was released. Right lower quadrant fascial suture was secured. Subcutaneous tissue at the level of the umbilicus reapproximated with interrupted 3-0 Vicryl sutures. Skin was closed with interrupted and running 4- 0 Monocryl subcuticular sutures. Steri-Strips and bandages were applied. The patient was taken from lithotomy position and placed in the standard supine position. The Dowd was removed. the ureteral catheters were removed and they were noted to be intact. All sponge and instrument counts were correct. The patient was extubated. The patient was brought to recovery room in stable condition. - Admit VTE Documentation VTE Present on Admission: No VTE Mechan Device Prophylaxis: SCD's VTE Pharm Prophylaxis ordered?: Yes
[2017-12-23] MEDS: Lactated Ringers 1,000 ML 999 ML IV (19:30)
[2017-12-23 19:42] LABS: Hematocrit 32.9 % (37-47); Hemoglobin 11.1 g/dl (12.0-15.0); Mean Corp Hgb Conc 33.7 g/gl (32-36); Mean Corpuscular Hgb 28.9 pg (27.0-32.0); Mean Corpuscular Volume 85.7 fL (81-99); Mean Platelet Vol. 10.1 fl (6.2-12.0); Platelet Count 243 K/mm3 (150-450); RBC Distribution Width CV 12.9 % (11.6-14.6); RBC Distribution Width SD 40.6 fl (35.1-43.9); Red Blood Count 3.84 M/mm3 (4.2-5.4); White Blood Count 10.5 K/mm3 (4.4-11.0)
[2017-12-23 19:45] LABS: Scan Indicated on CBC? Y/N NO
[2017-12-23] MEDS: Morphine 4 MG/ML Syringe IV (21:01)
[2017-12-23] MEDS: Lactated Ringers 1,000 ML 100 ML IV (22:34)
[2017-12-24] VITALS (7 sets, daily range): BP systolic 92–144; BP diastolic 54–87; PULSE 65–78; RESP 16–18; TEMP 36.6–37.3; O2SAT 93–100
[2017-12-24] MEDS: Lactated Ringers 500 ML 999 ML IV (00:14)
[2017-12-24] MEDS: oxyCODONE 5 MG Tablet PO (06:15)
[2017-12-24] MEDS: Levothyroxine 75 MCG Tablet PO (06:15)
[2017-12-24] MEDS: Lactated Ringers 1,000 ML 100 ML IV ×3 (06:16→23:41)
[2017-12-24 06:25] LABS: Absolute Lymphocyte Count 1.25 X10^3/ul (0.83-4.51); Absolute Neutrophil Count 5.9 X10^3/uL (2.0-7.7); Hematocrit 30.5 % (37-47); Hemoglobin 10.2 g/dl (12.0-15.0); Lymphocyte # 1.25 X10^3/ul (4.0); Lymphocyte % 15.2 % (19-41); Mean Corp Hgb Conc 33.4 g/gl (32-36); Mean Corpuscular Hgb 28.7 pg (27.0-32.0); Mean Corpuscular Volume 85.9 fL (81-99); Mean Platelet Vol. 10.2 fl (6.2-12.0); Monocyte% 12.2 % (0-10); Neutrophil # 5.94 X10^3/uL (2.7-7.7); Neutrophil % 72.4 % (47-70); Platelet Count 231 K/mm3 (150-450); RBC Distribution Width CV 12.7 % (11.6-14.6); RBC Distribution Width SD 38.6 fl (35.1-43.9); Red Blood Count 3.55 M/mm3 (4.2-5.4); White Blood Count 8.2 K/mm3 (4.4-11.0)
[2017-12-24 06:27] LABS: POSITIVE COUNT NO; POSITIVE DIFFERENTIAL NO; POSITIVE MORPHOLOGY NO
[2017-12-24 06:41] LABS: ALB/GLOB Ratio 0.7 RATIO (0.9-2.4); AST(SGOT) 50 U/L (15-37); Alanine Aminotransfer ALT/SGPT 95 U/L (13-56); Albumin, Serum 2.3 g/dL (3.2-5.0); Alkaline Phosphatase 79 U/L (45-117); Anion Gap 10 (5-15); BUN 7 mg/dL (7-18); BUN/Creat Ratio 7.6 RATIO (10-20); Chloride 103 mmol/L (98-107); Creatinine, Serum 0.92 mg/dL (0.55-1.02); EST Glomerular Filtration Rate 66 mL/min (>60); Est Glom Filt Rate - Afr Amer 80 mL/min (>60); Estimated Creatinine Clearance 59.25 ml/min; Globulin 3.2 g/dL (2.2-4.2); Glucose 97 mg/dL (74-106); Potassium 3.8 mmol/L (3.5-5.1); Protein, Total 5.5 g/dL (6.4-8.2); Sodium Level 139 mmol/L (136-145)
[2017-12-24] MEDS: 0.9% NaCl Peripheral Flush Adult/Peds IV (08:04)
[2017-12-24] MEDS: proCHLORPERazine 10 MG/2 ML Vial IV (08:05)
[2017-12-24] MEDS: Enoxaparin 40 MG/0.4 ML Syringe SC (10:18)
[2017-12-24] MEDS: Aspirin 81 MG TAB.CHEW PO (10:18)
--- NOTE | 2017-12-24 11:06 | CASEMGMT ---
JUAN QUEVEDO Face to Face with patient for initial transition planning/care coordination assessment. RN EMY introduced self and role at [facility]. Patient sitting in chair, alert and oriented, mother at bedside. Patient willing to participate in assessment and is able to answer all questions appropriately. Care providers, pharmacy, and demographics verified. See RN CM Assessment. Patient wishes to discharge home, denies need for home health at this time. Patient states she has no further needs or concerns at this time. CM to follow for discharge planning needs that may arise. Disposition Plan: Patient to discharge home with family support and follow-up plans in place.
--- NOTE | 2017-12-24 12:29 | PN.SURG_ITS ---
Subjective: improved pain over last night, no nausea - Physical Exam General: Alert, Oriented x3 Lungs: Clear to auscultation, Normal air movement Cardiovascular: Regular rate, Regular Rhythm Abdomen: Bowel Sounds Present, Soft, Tender - at incisions, incisions clean, dry and intact, Zepeda catheter in place with blood-tinged urine-expected given ureteral stents Vital Signs Temp Pulse Resp BP Pulse Ox 99.0 F 67 18 105/65 93 12/24/17 10:16 12/24/17 10:16 12/24/17 10:16 12/24/17 10:16 12/24/17 10:16 Oxygen Flow Rate (L/min) 2 Oxygen Delivery Method Room Air Weight: 81.3 kg Body Mass Index (BMI) 29.8 Intake and Output for Last 24 Hours 12/22/17 12/23/17 12/24/17 23:59 23:59 23:59 Intake Total 5742 / 5742 1343 / 1343 Output Total 1505 / 1505 250 / 250 Balance 4237 / 4237 1093 / 1093 Laboratory Tests Past 24 Hrs 12/23/17 12/24/17 12/24/17 19:22 06:08 06:08 WBC 10.5 8.2 RBC 3.84 L 3.55 L Hgb 11.1 L 10.2 L Hct 32.9 L 30.5 L MCV 85.7 85.9 MCH 28.9 28.7 MCHC 33.7 33.4 RDW 12.9 12.7 RDW Differential 40.6 38.6 Plt Count 243 231 MPV 10.1 10.2 Immature Gran % (Auto) 0.200 Neut % (Auto) 72.4 H Lymph % (Auto) 15.2 L Harnett % (Auto) 12.2 H Eos % (Auto) 0.0 Baso % (Auto) 0.0 Absolute Neuts (auto) 5.9 Absolute Lymphs (auto) 1.25 Total Counted Not Reportable Sodium 139 Potassium 3.8 Chloride 103 Carbon Dioxide 26.0 Anion Gap 10 BUN 7 Creatinine 0.92 Estim Creat Clear Calc 59.25 Est GFR (MDRD) Af Amer 80 Est GFR (MDRD) Non-Af 66 BUN/Creatinine Ratio 7.6 L Glucose 97 Calcium 8.0 L Total Bilirubin 0.60 AST 50 H ALT 95 H Alkaline Phosphatase 79 Total Protein 5.5 L Albumin 2.3 L Globulin 3.2 Albumin/Globulin Ratio 0.7 L Medical Necessity - Tobacco Use Smoking Status: Never smoker Assessment/Plan POD #1 - status post laparoscopic re-do sigmoid colectomy/low anterior resection , splenic flexure mobilization, bilateral salpingo-oophorectomy Patient doing well clinically. Notes pain is improved today since overnight. Only received 1 mg of morphine for pain control overnight. We'll encourage oral pain medication-Motrin versus OxyIR. mildly hypotensive with mildly low urine output. Responded to boluses. Clinically felt patient was somewhat dehydrated preoperatively and 5 hour operative case. Laboratory studies from overnight-hemoglobin and hematocrit dropped somewhat, but felt this is clinically more dilutional. Patient on output improved this morning, as is her blood pressure. Patient has bowel sounds. We will encourage sips of clear liquids. We will unrestricted liquids once patient passes flatus. Encourage incentive spirometry use to prevent postoperative pulmonary issues. We'll continue SCDs and Lovenox for DVT prophylaxis. Given the fact the patient was in stirrups for 5 hours.
[2017-12-25 02:45] VITALS: BP 122/79; PULSE 81; RESP 16; TEMP 36.9; O2SAT 96
[2017-12-25] MEDS: Levothyroxine 75 MCG Tablet PO (05:46)
--- NOTE | 2017-12-25 07:01 | PN.SURG_ITS ---
Subjective: much improved pain today - Physical Exam General: Alert, Oriented x3, Cooperative Lungs: Clear to auscultation, Normal air movement Cardiovascular: Regular rate, No murmurs Abdomen: Bowel Sounds Present, Soft, Non Tender, - - incisions clean, dry and intact Vital Signs Temp Pulse Resp BP Pulse Ox 98.4 F 81 16 122/79 H 96 12/25/17 02:45 12/25/17 02:45 12/25/17 02:45 12/25/17 02:45 12/25/17 02:45 Oxygen Flow Rate (L/min) 2 Oxygen Delivery Method Room Air Weight: 81.3 kg Body Mass Index (BMI) 29.8 Intake and Output for Last 24 Hours 12/23/17 12/24/17 12/25/17 23:59 23:59 23:59 Intake Total 5742 / 5742 2507 / 2507 Output Total 1505 / 1505 4250 / 4250 Balance 4237 / 4237 -1743 / -1743 Medical Necessity - Tobacco Use Smoking Status: Never smoker Assessment/Plan POD #2 - status post laparoscopic re-do sigmoid colectomy/low anterior resection , splenic flexure mobilization, bilateral salpingo-oophorectomy Patient doing well clinically. Notes pain is improved today since overnight. Only received 1 mg of morphine for pain control overnight. We'll encourage oral pain medication-Motrin versus OxyIR. mildly hypotensive with mildly low urine output on postoperative day 1. Responded to boluses. Clinically felt patient was somewhat dehydrated preoperatively and 5 hour operative case. patient with much improved blood pressure and significant urine output overnight. Urine character is clearing after initially being somewhat bloody. Zepeda catheter were removed. IV fluids be changed to maintenance fluid. Patient has bowel sounds. We will encourage sips of clear liquids. We will unrestricted liquids once patient passes flatus. Encourage incentive spirometry use to prevent postoperative pulmonary issues. We'll continue SCDs and Lovenox for DVT prophylaxis. Given the fact the patient was in stirrups for 5 hours.
[2017-12-25 08:25] VITALS: BP 126/77; PULSE 83; RESP 18; TEMP 37.1; O2SAT 93
[2017-12-25] MEDS: Enoxaparin 40 MG/0.4 ML Syringe SC (08:47)
[2017-12-25] MEDS: Aspirin 81 MG TAB.CHEW PO (08:47)
[2017-12-25] MEDS: Ibuprofen 400 MG Tablet PO ×2 (08:51→13:27)
[2017-12-25 16:12] VITALS: BP 121/80; PULSE 71; RESP 18; TEMP 36.9; O2SAT 94
[2017-12-25 22:15] VITALS: BP 119/78; PULSE 74; RESP 18; TEMP 37; O2SAT 96
[2017-12-26] MEDS: Ibuprofen 400 MG Tablet PO (03:41)
[2017-12-26 04:15] VITALS: BP 129/68; PULSE 64; RESP 18; TEMP 37; O2SAT 95
[2017-12-26 06:15] LABS: Absolute Lymphocyte Count 1.79 X10^3/ul (0.83-4.51); Absolute Neutrophil Count 5.1 X10^3/uL (2.0-7.7); Hematocrit 33.7 % (37-47); Hemoglobin 11.6 g/dl (12.0-15.0); Lymphocyte # 1.79 X10^3/ul (4.0); Lymphocyte % 23.3 % (19-41); Mean Corp Hgb Conc 34.4 g/gl (32-36); Mean Corpuscular Hgb 29.3 pg (27.0-32.0); Mean Corpuscular Volume 85.1 fL (81-99); Mean Platelet Vol. 10.5 fl (6.2-12.0); Monocyte# 0.77 X10^3/uL; Neutrophil % 66.4 % (47-70); Platelet Count 294 K/mm3 (150-450); RBC Distribution Width CV 12.5 % (11.6-14.6); Red Blood Count 3.96 M/mm3 (4.2-5.4); White Blood Count 7.7 K/mm3 (4.4-11.0)
[2017-12-26 06:18] LABS: POSITIVE COUNT NO; POSITIVE DIFFERENTIAL NO; POSITIVE MORPHOLOGY NO
[2017-12-26] MEDS: Levothyroxine 75 MCG Tablet PO (06:21)
[2017-12-26 06:32] LABS: ALB/GLOB Ratio 0.7 RATIO (0.9-2.4); AST(SGOT) 63 U/L (15-37); Alanine Aminotransfer ALT/SGPT 88 U/L (13-56); Albumin, Serum 2.6 g/dL (3.2-5.0); Alkaline Phosphatase 91 U/L (45-117); Anion Gap 10 (5-15); BUN 4 mg/dL (7-18); BUN/Creat Ratio 8.1 RATIO (10-20); Calcium,Total 8.8 mg/dL (8.5-10.1); Chloride 106 mmol/L (98-107); Creatinine, Serum 0.49 mg/dL (0.55-1.02); EST Glomerular Filtration Rate 137 mL/min (>60); Est Glom Filt Rate - Afr Amer 165 mL/min (>60); Estimated Creatinine Clearance 111.24 ml/min; Globulin 3.8 g/dL (2.2-4.2); Glucose 102 mg/dL (74-106); Magnesium 1.6 mg/dL (1.6-2.6); Phosphorus 2.7 mg/dL (2.5-4.9); Potassium 3.9 mmol/L (3.5-5.1); Protein, Total 6.4 g/dL (6.4-8.2); Sodium Level 143 mmol/L (136-145)
[2017-12-26] MEDS: Enoxaparin 40 MG/0.4 ML Syringe SC (07:44)
[2017-12-26] MEDS: Aspirin 81 MG TAB.CHEW PO (07:44)
--- NOTE | 2017-12-26 08:19 | DS.PCM_ITS ---
Discharge Date and Diagnosis Date of Admission: 12/23/17 Date of Discharge: 12/26/17 - Primary Discharge Diagnosis recurernt diverticulitis Hospital Course and Treatment Summary of Care Provided: The patient is a 57 year old F with chronic recurring diverticulitis and a low rectosigmoid stenosis. I performed a laparoscopic re-do sigmoid colectomy/low anterior resection, splenic flexure mobilization, bilateral salpingo- oophorectomy Patient doing well clinically. Notes pain is improved today since overnight. Only received 1 mg of morphine for pain control overnight on postoperative day 1 and was otherwise only taking oral pain medication-Motrin mildly hypotensive with mildly low urine output on postoperative day 1. Responded to boluses. Clinically felt patient was somewhat dehydrated preoperatively and 5 hour operative case. patient with much improved blood pressure and significant urine output overnight. Urine character is clearing after initially being somewhat bloody. Zepeda catheter were removed. IV fluids be changed to maintenance fluid. Patient has bowel sounds. passing flatus and now bowel movements. tolerated clear liquids overnight. We will advance to full liquids with lean proteins for the next few days and then can advance to regular diet, likely Wednesday or Wednesday Encourage incentive spirometry use to prevent postoperative pulmonary issues. We'll continue SCDs and Lovenox for DVT prophylaxis. Given the fact the patient was in stirrups for 5 hours. we will not discharge her with Lovenox since this is not for malignancy I will plan to follow up in my office morning. Home Medications: Medications to take at Discharge Levothyroxine Sodium [Levoxyl] 75 mcg PO DAILY 09/05/14 Aspirin [Aspirin, Baby] 81 mg PO DAILY@0800 11/16/17 Multivitamin [Daily Multiple Vitamin] 1 each PO DAILY 11/16/17 Omeprazole [Prilosec] 20 mg PO PRN PRN 12/16/17 Ibuprofen [Motrin] 400 mg PO Q4H PRN PRN tablet 12/26/17 Primary Care Physician: Yasir Smith MD [Primary Care Provider] - Medical Necessity - Tobacco Use Smoking Status: Never smoker Meaningful Use Info Meaningful Use Diagnoses (Choose all that apply): None applicable
--- NOTE | 2017-12-26 08:19 | PCM.DC ---
You will use the following diet at home:: Other - low residue for 2 days, then advance to regular Discharge Activity: No Restrictions, May Drive, May Shower Call your doctor if your incision/area has: Sudden Increased Bleeding, Increased Pain/ Swelling, Increased Redness Call your doctor if you observe: Fever of 101 or Higher, Coldness, Increased Pain, Inability to urinate, Inability to have a bowel movement Cleanse incision/area with: Soap & Water Allergies/Adverse Reactions: Allergies cetirizine [From [facility] [[email or web address]]] Allergy (Verified 12/16/17 14:03) Unknown Medications to take at Discharge Levothyroxine Sodium [Levoxyl] 75 mcg PO DAILY 09/05/14 Aspirin [Aspirin, Baby] 81 mg PO DAILY@0800 11/16/17 Multivitamin [Daily Multiple Vitamin] 1 each PO DAILY 11/16/17 Omeprazole [Prilosec] 20 mg PO PRN PRN 12/16/17 Ibuprofen [Motrin] 400 mg PO Q4H PRN PRN tablet 12/26/17 Primary Care Physician: Yasir Smith MD [Primary Care Provider] - Test Results: Test results from this visit will be discussed in further detail at your follow-up appointment, if applicable. Please Follow Up With: Joe Ohara MD When: 8am Proposed Discharge Date: 12/26/17
--- NOTE | 2017-12-26 10:01 | PCM.PN.SRG ---
Subjective: passing flatus, small bowel movement this morning - Physical Exam General: Alert, Oriented x3, Cooperative Lungs: Clear to auscultation, Normal air movement Cardiovascular: Regular rate, No murmurs Abdomen: Bowel Sounds Present, Soft, Non Tender Vital Signs Temp Pulse Resp BP Pulse Ox 98.6 F 64 18 129/68 H 95 12/26/17 04:15 12/26/17 04:15 12/26/17 04:15 12/26/17 04:15 12/26/17 04:15 Oxygen Flow Rate (L/min) 2 Oxygen Delivery Method Room Air Weight: 81.3 kg Body Mass Index (BMI) 29.8 Intake and Output for Last 24 Hours 12/24/17 12/25/17 12/26/17 23:59 23:59 23:59 Intake Total 2507 / 2507 2922 / 2922 647 / 647 Output Total 4250 / 4250 1150 / 1150 1000 / 1000 Balance -1743 / -1743 1772 / 1772 -353 / -353 Laboratory Tests Past 24 Hrs 12/26/17 12/26/17 05:40 05:40 WBC 7.7 RBC 3.96 L Hgb 11.6 L Hct 33.7 L MCV 85.1 MCH 29.3 MCHC 34.4 RDW 12.5 RDW Differential 38.0 Plt Count 294 MPV 10.5 Immature Gran % (Auto) 0.300 Neut % (Auto) 66.4 Lymph % (Auto) 23.3 [place] % (Auto) 10.0 Eos % (Auto) 0.0 Baso % (Auto) 0.0 Absolute Neuts (auto) 5.1 Absolute Lymphs (auto) 1.79 Total Counted Not Reportable Sodium 143 Potassium 3.9 Chloride 106 Carbon Dioxide 27.0 Anion Gap 10 BUN 4 L Creatinine 0.49 L Estim Creat Clear Calc 111.24 Est GFR (MDRD) Af Amer 165 Est GFR (MDRD) Non-Af 137 BUN/Creatinine Ratio 8.1 L Glucose 102 Calcium 8.8 Phosphorus 2.7 Magnesium 1.6 Total Bilirubin 0.50 AST 63 H ALT 88 H Alkaline Phosphatase 91 Total Protein 6.4 Albumin 2.6 L Globulin 3.8 Albumin/Globulin Ratio 0.7 L Medical Necessity - Tobacco Use Smoking Status: Never smoker Assessment/Plan POD #3 - status post laparoscopic re-do sigmoid colectomy/low anterior resection, splenic flexure mobilization, bilateral salpingo-oophorectomy Patient doing well clinically. Notes pain is improved today since overnight. Only received 1 mg of morphine for pain control overnight. We'll encourage oral pain medication-Motrin versus OxyIR. mildly hypotensive with mildly low urine output on postoperative day 1. Responded to boluses. Clinically felt patient was somewhat dehydrated preoperatively and 5 hour operative case. patient with much improved blood pressure and significant urine output overnight. Urine character is clearing after initially being somewhat bloody. Zepeda catheter were removed. IV fluids be changed to maintenance fluid. Patient has bowel sounds. passing flatus and now bowel movements. tolerated clear liquids overnight. We will advance to full liquids with lean proteins for the next few days and then can advance to regular diet, likely Wednesday or Wednesday Encourage incentive spirometry use to prevent postoperative pulmonary issues. We'll continue SCDs and Lovenox for DVT prophylaxis. Given the fact the patient was in stirrups for 5 hours. I will plan to follow up in my office .
--- NOTE | 2017-12-29 07:36 | PCM.HP.STD ---
Problem List (1) History of ureter stent Status: Acute History of Present Illness Date of Admission: 12/23/17 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: stent placement Called in to placed stents, patient asleep. 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
== END 2017-12-26 09:56 | disposition home or self-care (01) | DRG 330 ==
PROVIDERS: Obstetrics & Gynecology; Admitting Provider Surgery; Family Provider Family Medicine; PCP Family Medicine; Visit Provider Surgery
PROC: 0DTN0ZZ Resection of Sigmoid Colon, Open Approach (ICD-10-PCS; CPT 44204; principal; 2017-12-23 06:50)
PROC: 0UDB8ZZ Extraction of Endometrium, Via Natural or Artificial Opening Endoscopic (ICD-10-PCS; CPT 58558; 2017-12-23 06:50)
DX: K57.92 Diverticulitis of intestine, part unspecified, without perforation or abscess without bleeding (principal); K56.699 Other intestinal obstruction unspecified as to partial versus complete obstruction; Z90.49 Acquired absence of other specified parts of digestive tract; N83.202 Unspecified ovarian cyst, left side; K57.32 Diverticulitis of large intestine without perforation or abscess without bleeding; N73.6 Female pelvic peritoneal adhesions (postinfective); I95.9 Hypotension, unspecified
CPT/HCPCS: 36415; 80053; 83735; 84100; 85025; 85027; 88304; 88305; 88307; 93005; J7120; A4216; C1769; J2405

== ENCOUNTER 2018-05-31 09:01 | Emergency (ER) | payer OTHER, SELFPAY ==
[2018-05-31 09:02] VITALS: BP 141/82; PULSE 100; RESP 18; TEMP 36.6; O2SAT 99; BMI 28.6
[2018-05-31 09:06] VITALS: TEMP 36.6
--- NOTE | 2018-05-31 09:18 | RAD_ITS ---
STUDY: X-RAY CHEST REASON FOR EXAM: Female, 58 years old. Chest pain. Headaches. TECHNIQUE: PA and lateral views of the chest. COMPARISON: Comparison is made with prior study dated December 06, 2009. FINDINGS: EKG electrodes are seen. Pectus excavatum deformity. Minimal increased markings in the lingular segment of the left upper lobe There is no demonstrated pleural abnormality. Normal size heart. Normal mediastinum and ahsan. Normal visualized pulmonary arteries. Normal visualized aortic arch and descending thoracic aorta. Normal visualized thoracic spine. Normal visualized ribs, clavicles, and shoulders. There is no demonstrated abnormality of the visualized soft tissue structures of the upper abdomen. RAD/Chest PA and Lateral IMPRESSION: Mild degree of increased markings in the lingular segment of the left upper lobe. This may represent either atelectasis and/or early infiltrate. Follow-up is recommended. Electronically Signed: Joaquin Ellington MD at 11:06 EST Tel [phone], Service support ,
--- NOTE | 2018-05-31 09:18 | EKG12_ITS ---
Test Reason : ABNORMAL LABS Blood Pressure : / mmHG Vent. Rate : 084 BPM Atrial Rate : 084 BPM P-R Int : 144 ms QRS Dur : 084 ms QT Int : 368 ms P-R-T Axes : -08 -04 044 degrees QTc Int : 434 ms Normal sinus rhythm Normal ECG Confirmed by SAMRA BHATT, COLT ([id number]), loan expeditor ANI ROMERO ([id number]) on 06/02/2018 3:42:03 PM Referred By: RUY Confirmed By:COLT CABRALES MD
--- NOTE | 2018-05-31 09:23 | ED.VISSUMM ---
- ER Visit Summary Date of Service: 05/31/18 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: Low sodium History of Present Illness: The patient is a 58 F who presents for evaluation of low sodium. Patient states that for the last 2 weeks she has been having a headache and nausea. She has not been sleeping well. She was seen at urgent care 3 days ago and had a sodium of 126. They had her come back yesterday for recheck, and called her this morning to tell her her sodium was 121 and she needed to be seen at the hospital. Patient denies any change in her water intake. No recent medication changes. She has history of hypothyroidism and is on levothyroxine. She denies any coronary artery disease, CHF, history of diabetes or hypertension. She has no history of cancer. Denies alcohol or tobacco use. No fever, chest pain, shortness of breath, abdominal pain, diarrhea, urinary symptoms. She does complain of some gingival sores in her tongue feeling funny. Physical Examination: Vital signs: afebrile, hemodynamically stable, no hypoxia on room air General: well nourished, well developed, in no distress Skin: warm, dry, no rash, no pallor HEENT: normocephalic and atraumatic; PERRL, EOMI, moist mucous membranes Cardiovascular: Tachycardic rate and rhythm without murmurs, no peripheral edema, 2+ pulses all distal extremities Respiratory: No increased work of breathing, lungs are clear to auscultation bilaterally, no rales, rhonchi or wheezing Abdominal: Abdomen is soft, nontender with normoactive bowel sounds, no guarding or rebound, no masses MSK: Moves all extremities, no deformities, normal strength Neuro: Awake and alert, oriented ?4. No facial droop, sensation and motor function intact and symmetric Test Results: Abnormal Lab Results 05/31/18 05/31/18 05/31/18 10:00 10:00 10:00 WBC RBC Hgb Hct MCV MCH MCHC RDW RDW Differential Plt Count MPV Immature Gran % (Auto) Neut % (Auto) Lymph % (Auto) [place] % (Auto) Eos % (Auto) Baso % (Auto) Absolute Neuts (auto) Absolute Lymphs (auto) Total Counted Sodium Potassium Chloride Carbon Dioxide Anion Gap BUN Creatinine Estim Creat Clear Calc Est GFR (MDRD) Af Amer Est GFR (MDRD) Non-Af BUN/Creatinine Ratio Glucose Calcium Magnesium Total Bilirubin AST ALT Alkaline Phosphatase Total Protein Albumin Globulin Albumin/Globulin Ratio TSH Urine Color Yellow Urine Clarity Sl. Cloudy Urine pH 5.0 Ur Specific [place] 1.025 Urine Protein Negative Urine Glucose (UA) Normal Urine Ketones Negative Urine Occult Blood 25 H Urine Nitrite Negative Urine Bilirubin Negative Urine Urobilinogen 4 H Ur Leukocyte Esterase 25 H Urine RBC 0-5 SEEN Urine WBC 0-5 SEEN Ur Squamous Epith Cells 0-5 SEEN Calcium Oxalate Crystal RARE Urine Bacteria 1+ Urine Mucus 1+ Urine Osmolality 542 Ur Random Sodium 40 05/31/18 05/31/18 10:11 10:11 WBC 7.7 RBC 4.75 Hgb 14.1 Hct 39.4 MCV 82.9 MCH 29.7 MCHC 35.8 RDW 12.2 RDW Differential 36.7 Plt Count 308 MPV 9.5 Immature Gran % (Auto) 0.300 Neut % (Auto) 70.2 H Lymph % (Auto) 18.2 L [place] % (Auto) 11.3 H Eos % (Auto) 0.0 Baso % (Auto) 0.0 Absolute Neuts (auto) 5.4 Absolute Lymphs (auto) 1.40 Total Counted Not Reportable Sodium 127 L Potassium 4.0 Chloride 92 L Carbon Dioxide 29.0 Anion Gap 6 BUN 18 Creatinine 0.78 Estim Creat Clear Calc 69.02 Est GFR (MDRD) Af Amer 97 Est GFR (MDRD) Non-Af 80 BUN/Creatinine Ratio 23.0 H Glucose 97 Calcium 8.6 Magnesium 2.1 Total Bilirubin 0.90 AST 53 H ALT 90 H Alkaline Phosphatase 114 Total Protein 7.9 Albumin 3.7 Globulin 4.2 Albumin/Globulin Ratio 0.9 TSH 1.82 Urine Color Urine Clarity Urine pH Ur Specific [place] Urine Protein Urine Glucose (UA) Urine Ketones Urine Occult Blood Urine Nitrite Urine Bilirubin Urine Urobilinogen Ur Leukocyte Esterase Urine RBC Urine WBC Ur Squamous Epith Cells Calcium Oxalate Crystal Urine Bacteria Urine Mucus Urine Osmolality Ur Random Sodium Clinical Impression(s) from Imaging Studies Chest X-Ray 05/31/18 09:18 IMPRESSION: Mild degree of increased markings in the lingular segment of the left upper lobe. This may represent either atelectasis and/or early infiltrate. Follow-up is recommended. Electronically Signed: Joaquin Ellington MD at 11:06 EST Tel [phone], Service support , Medications Given Lactated Ringer's () 1,000 mls @ 150 mls/hr IV .[id number] [facility] Last Admin: 05/31/18 10:13 Dose: 150 mls/hr Emergency Department Course and Treatment: Labs were rechecked. Patient's labs from the urgent care were not available for examination. EKG showed a sinus rhythm with no ischemia or ectopy, no QTC prolongation. Rate was normal. She was tachycardic at initial presentation but heart rate improved rapidly with rest. Patient's sodium today was 127. Patient had concurrent hypochloremia of 92. Patient had very mild transaminitis. TSH normal at 1.82. Mag normal at 2.1. Urine sodium 40 and urine osmolality 542. Patient received 1 L of lactated Ringer's. She is well-appearing, and given her sodium is 127 and not 121, she was discussed with Dr. Smith, with whom she has an appointment tomorrow. We discussed outpatient management, and he agreed with this plan and will reevaluate her tomorrow. Patient also agreed with this plan and preferred to be discharged home rather than admitted. Patient well-appearing at time of discharge. Treatment Plan: [] Disposition: [] Impression: Mild hyponatremia This note was generated with [employer] dictation software. It may contain incorrect words, spelling, and punctuation that were not noted in review of the chart prior to signing ED Disposition - Plan for ED Patient: Disposition: Home or Assisted Living 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: Abn Labs Instructions: ED Hyponatremia Referrals: Yasir Smith MD [Primary Care Provider] - 1 Day Additional Instructions: Keep your appointment with Dr. Smith tomorrow. If you have any worsening of your condition or any new concerning symptoms, please return immediately to the emergency department for another evaluation.
[2018-05-31 10:12] LABS: Color, Urine Yellow (Yellow); Glucose, Dipstick Normal (Normal); Ketone-Dipstick Negative (Negative); Leukocyte Esterase-Dipstick 25 /ul (Negative); Nitrite-Dipstick Negative (Negative); Occult Blood-Urine 25 /ul (Negative); Protein-Dipstick Negative (Negative); Specific Gravity, Urine 1.025 (1.002-1.030); Urine Bilirubin Dipstick Negative (Negative); Urine Clarity Sl. Cloudy (Clear); Urine Urobilinogen 4 mg/dl (Normal)
[2018-05-31] MEDS: Lactated Ringers 1,000 ML 150 ML IV (10:13)
[2018-05-31 10:15] LABS: Urine Sodium 40 mmol/L (Not Establ.)
[2018-05-31 10:19] LABS: Bacteria 1+ /hpf (None Seen); Calcium Oxalate Crystals Ur RARE /hpf (<or=2+); Mucous, Urine 1+ /hpf (<or=2+); Red Blood Cells-Urine 0-5 SEEN /hpf (0-5); Squamous Epithelial Cells - UA 0-5 SEEN /hpf (5-10); White Blood Cells 0-5 SEEN /hpf (0-5)
[2018-05-31 10:21] LABS: Osmolality, Urine 542 mOsm/KG
[2018-05-31 10:25] LABS: Absolute Neutrophil Count 5.4 X10^3/uL (2.0-7.7); Hematocrit 39.4 % (37-47); Hemoglobin 14.1 g/dl (12.0-15.0); Lymphocyte % 18.2 % (19-41); Mean Corp Hgb Conc 35.8 g/gl (32-36); Mean Corpuscular Hgb 29.7 pg (27.0-32.0); Mean Corpuscular Volume 82.9 fL (81-99); Mean Platelet Vol. 9.5 fl (6.2-12.0); Monocyte# 0.87 X10^3/uL; Monocyte% 11.3 % (0-10); Neutrophil # 5.41 X10^3/uL (2.7-7.7); Neutrophil % 70.2 % (47-70); POSITIVE COUNT NO; POSITIVE DIFFERENTIAL NO; POSITIVE MORPHOLOGY NO; Platelet Count 308 K/mm3 (150-450); RBC Distribution Width CV 12.2 % (11.6-14.6); RBC Distribution Width SD 36.7 fl (35.1-43.9); Red Blood Count 4.75 M/mm3 (4.2-5.4); White Blood Count 7.7 K/mm3 (4.4-11.0)
[2018-05-31 10:43] LABS: ALB/GLOB Ratio 0.9 RATIO (0.9-2.4); AST(SGOT) 53 U/L (15-37); Alanine Aminotransfer ALT/SGPT 90 U/L (13-56); Albumin, Serum 3.7 g/dL (3.2-5.0); Alkaline Phosphatase 114 U/L (45-117); Anion Gap 6 (5-15); BUN 18 mg/dL (7-18); Calcium,Total 8.6 mg/dL (8.5-10.1); Chloride 92 mmol/L (98-107); Creatinine, Serum 0.78 mg/dL (0.55-1.02); EST Glomerular Filtration Rate 80 mL/min (>60); Est Glom Filt Rate - Afr Amer 97 mL/min (>60); Estimated Creatinine Clearance 69.02 ml/min; Globulin 4.2 g/dL (2.2-4.2); Glucose 97 mg/dL (74-106); Magnesium 2.1 mg/dL (1.6-2.6); Protein, Total 7.9 g/dL (6.4-8.2); Sodium Level 127 mmol/L (136-145); Thyroid Stim Hormone (TSH) 1.82 uIU/mL (0.358-3.74)
--- NOTE | 2018-05-31 11:05 | NURSING ---
PAGING DR WARREN
[2018-05-31 11:08] VITALS: BP 126/100; PULSE 87; RESP 12; O2SAT 99
--- NOTE | 2018-05-31 12:00 | ED.DEP ---
ED Disposition - Plan for ED Patient: Disposition: Home or Assisted Living 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: Abn Labs Instructions: ED Hyponatremia Referrals: Yasir Smith MD [Primary Care Provider] - 1 Day Additional Instructions: Keep your appointment with Dr. Smith tomorrow. If you have any worsening of your condition or any new concerning symptoms, please return immediately to the emergency department for another evaluation.
[2018-05-31 12:32] VITALS: BP 114/77; PULSE 81; RESP 16; O2SAT 100
== END 2018-05-31 12:33 | disposition home or self-care (01) ==
PROVIDERS: Emergency Provider Emergency Medicine; Family Provider Family Medicine; PCP Family Medicine
DX: E87.1 Hypo-osmolality and hyponatremia (principal); E87.8 Other disorders of electrolyte and fluid balance, not elsewhere classified; K12.0 Recurrent oral aphthae; E03.9 Hypothyroidism, unspecified; R74.0 Nonspecific elevation of levels of transaminase and lactic acid dehydrogenase [LDH]; R51 Headache; R11.0 Nausea; Z79.82 Long term (current) use of aspirin; Z79.899 Other long term (current) drug therapy
CPT/HCPCS: 71046; 80053; 81001; 83735; 83935; 84300; 84443; 85025; 93005; 96360; 96361; 99284; J7120; A4216

== ENCOUNTER 2018-06-01 13:51 | Inpatient (IN) | payer OTHER, SELFPAY ==
[2018-05-31 09:02] VITALS: BMI 28.6
[2018-06-01 13:52] VITALS: BP 132/100; PULSE 116; RESP 16; TEMP 36.6; O2SAT 100; BMI 27.5
[2018-06-01 14:31] LABS: Absolute Lymphocyte Count 1.64 X10^3/ul (0.83-4.51); Hematocrit 40.3 % (37-47); Hemoglobin 14.4 g/dl (12.0-15.0); Lymphocyte # 1.64 X10^3/ul (4.0); Mean Corp Hgb Conc 35.7 g/gl (32-36); Mean Corpuscular Hgb 29.6 pg (27.0-32.0); Mean Corpuscular Volume 82.8 fL (81-99); Mean Platelet Vol. 9.5 fl (6.2-12.0); Monocyte# 0.97 X10^3/uL; Monocyte% 10.1 % (0-10); Neutrophil # 7.02 X10^3/uL (2.7-7.7); Neutrophil % 72.7 % (47-70); POSITIVE COUNT NO; POSITIVE DIFFERENTIAL NO; POSITIVE MORPHOLOGY NO; Platelet Count 345 K/mm3 (150-450); RBC Distribution Width CV 12.2 % (11.6-14.6); RBC Distribution Width SD 36.8 fl (35.1-43.9); Red Blood Count 4.87 M/mm3 (4.2-5.4); White Blood Count 9.7 K/mm3 (4.4-11.0)
[2018-06-01 14:53] LABS: ALB/GLOB Ratio 0.9 RATIO (0.9-2.4); AST(SGOT) 50 U/L (15-37); Alanine Aminotransfer ALT/SGPT 88 U/L (13-56); Albumin, Serum 3.9 g/dL (3.2-5.0); Alkaline Phosphatase 125 U/L (45-117); Anion Gap 7 (5-15); BUN 18 mg/dL (7-18); BUN/Creat Ratio 23.3 RATIO (10-20); Calcium,Total 9.1 mg/dL (8.5-10.1); Chloride 93 mmol/L (98-107); Creatinine, Serum 0.77 mg/dL (0.55-1.02); EST Glomerular Filtration Rate 81 mL/min (>60); Est Glom Filt Rate - Afr Amer 98 mL/min (>60); Estimated Creatinine Clearance 72.73 ml/min; Globulin 4.4 g/dL (2.2-4.2); Glucose 101 mg/dL (74-106); Potassium 3.8 mmol/L (3.5-5.1); Protein, Total 8.3 g/dL (6.4-8.2); Sodium Level 126 mmol/L (136-145)
[2018-06-01 14:57] VITALS: BP 150/87; PULSE 96; RESP 14; O2SAT 98
[2018-06-01 15:29] VITALS: BMI 27.5
--- NOTE | 2018-06-01 15:46 | ED.VISSUMM ---
- ER Visit Summary Date of Service: 06/01/18 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: Low sodium History of Present Illness: The patient is a 58 F sent by her PCP for hyponatremia. The patient has had generalized fatigue for several days now. She had an evaluation at urgent care and was found to be hyponatremic. She was referred to the emergency department. She was seen yesterday in this emergency department. Her workup was reassuring and she was sent for outpatient follow-up. She saw her PCP today and feels worse. He sent her for reevaluation and hospitalization. Patient denies any history of this in the past. No history of cancer. No history of diabetes. No history of alcoholism. No change in her diet or medications. She does have some nausea and a headache but no other symptoms. No history of seizures. Physical Examination: Afebrile and vital signs unremarkable except for an initial heart rate of 116. Alert and oriented. No acute distress. Heart tachycardic but regular. Lungs clear. Abdomen soft. Skin normal in color. Cranial nerves grossly intact. Normal strength and sensation. Test Results: CBC normal. Sodium has decreased from yesterday to 126, chloride 93. Alkaline phosphatase 125, ALT 88, AST 50. Emergency Department Course and Treatment: Patient's visit from yesterday was reviewed. Her sodium has gone from 127-126. She is feeling worse. I am not sure what is causing her hyponatremia, but she has failed outpatient care and will need hospitalization. Hospitalist was contacted for further care. Treatment Plan: As above Disposition: Admission Impression: 1. Hyponatremia This note was generated with [employer] dictation software. It may contain incorrect words, spelling, and punctuation that were not noted in review of the chart prior to signing ED Disposition - Plan for ED Patient: 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: Abn Labs Referrals: Yasir Smith MD [Primary Care Provider] -
--- NOTE | 2018-06-01 15:49 | ED.DCSUM_ITS ---
- ER Visit Summary Date of Service: 06/01/18 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: Low sodium History of Present Illness: The patient is a 58 F sent by her PCP for hyponatremia. The patient has had generalized fatigue for several days now. She had an evaluation at urgent care and was found to be hyponatremic. She was referred to the emergency department. She was seen yesterday in this emergency department. Her workup was reassuring and she was sent for outpatient follow- up. She saw her PCP today and feels worse. He sent her for reevaluation and hospitalization. Patient denies any history of this in the past. No history of cancer. No history of diabetes. No history of alcoholism. No change in her diet or medications. She does have some nausea and a headache but no other symptoms. No history of seizures. Physical Examination: Afebrile and vital signs unremarkable except for an initi al heart rate of 116. Alert and oriented. No acute distress. Heart tachycardic but regular. Lungs clear. Abdomen soft. Skin normal in color. Cranial nerves grossly intact. Normal strength and sensation. Test Results: CBC normal. Sodium has decreased from yesterday to 126, chloride 93. Alkaline phosphatase 125, ALT 88, AST 50. Emergency Department Course and Treatment: Patient's visit from yesterday was reviewed. Her sodium has gone from 127-126. She is feeling worse. I am not sure what is causing her hyponatremia, but she has failed outpatient care and will need hospitalization. Hospitalist was contacted for further care. Treatment Plan: As above Disposition: Admission Impression: 1. Hyponatremia This note was generated with [employer] dictation software. It may contain incorrect words, spelling, and punctuation that were not noted in review of the chart prior to signing ED Disposition - Plan for ED Patient: 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: Abn Labs Referrals: Yasir Smith MD [Primary Care Provider] -
[2018-06-01 16:07] VITALS: BP 123/87; PULSE 94; RESP 16; O2SAT 99
[2018-06-01 16:10] VITALS: BP 123/87; PULSE 94; RESP 18; O2SAT 99
[2018-06-01 16:47] VITALS: BMI 27.2
[2018-06-01 16:57] VITALS: RESP 16
--- NOTE | 2018-06-01 17:04 | HP.PCM_ITS ---
Problem List (1) Hyponatremia Status: Acute (2) Hypothyroid Status: Chronic (3) GERD (gastroesophageal reflux disease) Status: Chronic (4) Diverticulitis Status: Chronic History of Present Illness Date of Admission: 06/01/17 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: Fatigue The patient is a 58 year old F with pmhx of hypothyroidism, GERD, and severe di verticulitis with prior colon resections, who presented to the ER with c/o fatigue after being told to come to the ER for persistent hyponatremia. She has been fatigued since the week following new years. She went to the urgent care for this last weekend and was found to be hyponatremic. She was sent to the ER and received IV saline which she states did not help. Today she saw her PCP and was noted to be persistently hyponatremic so was sent back to the ER for admission. She also complains of intermittent severe frontal headaches, frequent urination and increasing nocturia, and tongue numbness. No neck pain. She denies vision and hearing changes. She denies polydipsia and she believes she drink on average of 4 glasses of water per day which is no different than her norm. She denies diarrhea. She has been intermittently nauseous but has not been vomiting. She is not diabetic and does not drink alcohol. Her TSH was recently checked and was normal. She has not had recent head trauma. She does have a cough, no sore throat, or runny nose. She also recently started having hot sensations in the evening. She has no hx of cancer. She does not smoke. [] Past Medical History Past Medical History (Chronic Problems): Chronic Problems Hypothyroid (Chronic) GERD (gastroesophageal reflux disease) (Chronic) Diverticulitis (Chronic) Allergies cetirizine [From Zyrtec] Allergy (Verified 06/01/18 13:53) Unknown Home Medications: Ambulatory Orders Medication Instructions Recorded Aspirin [Aspirin, Baby] 81 mg PO DAILY@0800 11/16/17 Omeprazole [Prilosec] 20 mg PO QODAY 12/16/17 Ibuprofen [Motrin] 400 mg PO Q4H PRN PRN tablet 12/26/17 Levothyroxine Sodium 75 mcg PO DAILY 06/01/18 Multivit-Min/Iron/Folic/Lutein 1 tab PO DAILY 06/01/18 [Centrum Silver Women Tablet] Surgical History: noncontributory Psychiatric History: No pertinent psych hx FIELD REPRESENTATIVE History: No pertinent FIELD REPRESENTATIVE history Lives: Spouse/ Significant Other Smoking Status: Never smoker Tobacco Use: Non-smoker Alcohol: None Drugs: None - *Family History Maternal History Items: Hypertension Paternal History Items: Heart Disease, Hypertension Review of Systems Constitutional: Reports: Fatigue, - - hot sweats in the evening.. Denies: Chills, Fever, Weight Change Eyes: Denies: Blurred vision, Double vision, Vision Change HEENT: Reports: Head Aches. Denies: Hearing Changes, Sinus Congestion, Sinus Drainage Cardiovascular: Denies: Chest Pain, Palpitations Respiratory: Reports: Cough. Denies: Shortness of Breath, Shortness of breath at rest, Sputum production Gastrointestinal: Reports: Nausea. Denies: Abdominal Pain, Diarrhea, Vomiting Genitourinary: Denies: Dysuria Musculoskeletal: Denies: Joint Pain, Joint Tenderness Skin: Denies: Rash, Wounds Neurological: Reports: Headaches, - - tongue numbness. Denies: Focal weakness, Numbness, Tingling Psychiatric: Denies: Anxiety, Depression, Homicidal Ideations, Suicidal Ideations Hematologic/ Lymphatic: Denies: Easy Bruising, Easy Bleeding VTE Information - Inpt Only VTE Present on Admission: No VTE Mechan Device Prophylaxis: None VTE Pharm Prophylaxis ordered?: Yes Patient Problems: Active and Suspected Problems Hyponatremia (Acute) - Physical Exam General: Alert, Oriented x3, Cooperative HEENT: Atraumatic, PERRLA, EOMI, Normocephalic Neck: Supple, No JVD, Negative Carotid Bruits Lungs: Normal air movement, - - course breath sounds Cardiovascular: Regular rate, No murmurs Abdomen: Bowel Sounds Present, Soft, Non Tender Extremities: No edema, Capillary Refill Less than 3 Seconds Skin: No rashes, No breakdown Musculoskeletal: No Tenderness to Palpation of Joints or Extremities Neurological: Cranial nerves II-XII grossly intact Psych/Mental Status: Normal Affect, Appropriate Vital Signs Temp Pulse Resp BP Pulse Ox 97.8 F 94 18 123/87 H 99 06/01/18 13:52 06/01/18 16:10 06/01/18 16:10 06/01/18 16:10 06/01/18 16:10 Oxygen Delivery Method Room Air Weight: 170 lb 10.205 oz Body Mass Index (BMI) 27.5 Laboratory Tests Past 24 Hrs 06/01/18 06/01/18 14:20 14:20 WBC 9.7 RBC 4.87 Hgb 14.4 Hct 40.3 MCV 82.8 MCH 29.6 MCHC 35.7 RDW 12.2 RDW Differential 36.8 Plt Count 345 MPV 9.5 Immature Gran % (Auto) 0.200 Neut % (Auto) 72.7 H Lymph % (Auto) 17.0 L [place] % (Auto) 10.1 H Eos % (Auto) 0.0 Baso % (Auto) 0.0 Absolute Neuts (auto) 7.0 Absolute Lymphs (auto) 1.64 Total Counted Not Reportable Sodium 126 L Potassium 3.8 Chloride 93 L Carbon Dioxide 26.0 Anion Gap 7 BUN 18 Creatinine 0.77 Estim Creat Clear Calc 72.73 Est GFR (MDRD) Af Amer 98 Est GFR (MDRD) Non-Af 81 BUN/Creatinine Ratio 23.3 H Glucose 101 Calcium 9.1 Total Bilirubin 0.80 AST 50 H ALT 88 H Alkaline Phosphatase 125 H Total Protein 8.3 H Albumin 3.9 Globulin 4.4 H Albumin/Globulin Ratio 0.9 Assessment/Plan All Active Problems History of ureter stent (Acute) Hyponatremia (Acute) 1. Hyponatremia - relatively new onset, symptoms began earlier this month marked mainly by fatigue, severe frontal headaches, nausea, tongue numbness, polyuria, nocturia. She denies polydipsia - drinks about 4 glasses of water per day. She appears euvolemic. She is not on diuretics. TSH recently normal. recently in the ER for IV fluids with no improvement. No alcohol use, no diabetes. No hx cancer. -Will check urine/serum osmolality, AM cortisol level, CRP, ESR. Possible SIADH. -Give IV NaCl. -GFR is intact -Consider CT head -no immediate family hx of cancer, never smoked, but regardless. consider paraneoplastic syndrome. Recent ovarian biopsy with cystadenoma BL. -Consider viral syndrome - she has a nonproductive cough. increased markings on CXR. -No meningismus 2. hypothyroid - recent normal tsh, continue synthroid 3. GERD - PPI 4. Hx diverticulitis with recent colon resection. No abdominal symptoms. 5. Elevated liver enzymes - unclear etiology. DVT ppx: lovenox This patient was seen by Lang Herrera PA-C under the supervision of Dr. Stoner.
[2018-06-01 17:45] LABS: Urine Sodium 116 mmol/L (Not Establ.)
[2018-06-01 17:55] LABS: CRP < 2.90 mg/L (0.0-3.0)
[2018-06-01 18:02] LABS: Erythrocyte Sedimentation Rate 9 mm/hr (0-30)
[2018-06-01 18:07] LABS: Osmolality, Serum 267 mOsm/KG (275-295)
[2018-06-01 18:07] LABS: Osmolality, Urine 558 mOsm/KG
--- NOTE | 2018-06-01 18:25 | RAD_ITS ---
STUDY: X-RAY CHEST REASON FOR EXAM: Female, 58 years old. Cough TECHNIQUE: Frontal and lateral views COMPARISON: May 31, 2018 FINDINGS: The lungs are clear and expanded. There is no demonstrated pleural abnormality. Normal size heart. Normal mediastinum and ahsan. Normal visualized pulmonary arteries. Normal visualized aortic arch and descending thoracic aorta. Mild wedge compression of T12. Normal visualized ribs, clavicles, and shoulders. There is no demonstrated abnormality of the visualized soft tissue structures of the upper abdomen. RAD/Chest PA and Lateral IMPRESSION: No acute pulmonary pathology of the chest. Electronically Signed: Pk Kirk DO at 23:39 EST Tel [phone], Service support ,
[2018-06-01] MEDS: 0.9% Normal Saline 1,000 ML 100 ML IV (18:49)
[2018-06-01] MEDS: Acetaminophen 325 MG Tablet 650 MG PO (18:50)
[2018-06-01 22:22] VITALS: BP 115/77; PULSE 81; RESP 18; TEMP 36.3; O2SAT 100
[2018-06-02] MEDS: MELATONIN 3 MG TABLET PO ×2 (00:21→22:02)
[2018-06-02] MEDS: Ibuprofen 400 MG Tablet PO ×2 (00:21→07:48)
[2018-06-02 04:09] VITALS: BP 111/74; PULSE 72; RESP 18; TEMP 36.3; O2SAT 99
[2018-06-02] MEDS: Acetaminophen 325 MG Tablet 650 MG PO (04:20)
[2018-06-02] MEDS: 0.9% Normal Saline 1,000 ML 100 ML IV ×3 (04:20→23:32)
[2018-06-02 06:04] LABS: Anion Gap 8 (5-15); BUN 17 mg/dL (7-18); BUN/Creat Ratio 25.1 RATIO (10-20); Calcium,Total 8.8 mg/dL (8.5-10.1); Chloride 95 mmol/L (98-107); Creatinine, Serum 0.68 mg/dL (0.55-1.02); EST Glomerular Filtration Rate 94 mL/min (>60); Est Glom Filt Rate - Afr Amer 114 mL/min (>60); Estimated Creatinine Clearance 82.36 ml/min; Glucose 106 mg/dL (74-106); Sodium Level 130 mmol/L (136-145)
[2018-06-02] MEDS: Levothyroxine 75 MCG Tablet PO (06:04)
[2018-06-02] MEDS: Aspirin 81 MG TAB.CHEW PO (07:48)
[2018-06-02 09:27] VITALS: BP 146/94; PULSE 74; RESP 16; TEMP 36.9; O2SAT 100
--- NOTE | 2018-06-02 10:10 | PN_ITS ---
Patient Problems: Active and Suspected Problems Hyponatremia (Acute) Subjective: Patient is a 58-year-old lady admitted with intractable nausea associated with significant fatigue. Patient had been diagnosed with hyponatremia by her PCP and was subsequently sent to the ED from where she was admitted to regular nursing floor for subsequent management Objective: GENERAL: cooperative HEENT: Atraumatic; moist oral mucosa EYES; Anicteric, Normal Conjunctiva NECK; supple, normal thyroid, no distended JVD. RESPIRATORY: Diminished to auscultation bilaterally, CARDIOVASCULAR: Regular S1 S2, no audible murmurs GI: soft, non-tender, normoactive bowel sounds, : No Renal angle tenderness; EXTREMITIES: No edema, no clubbing, no cyanosis. MUSCULOSKELETAL: No Joint Tenderness; no muscle waisting NEURO: Awake; no lateralizing signs. SKIN: No Rash PSYCH; Normal affect Vitals/I&O's: Vital Signs Temp Pulse Resp BP Pulse Ox 98.4 F 74 16 146/94 H 100 06/02/18 09:27 06/02/18 09:27 06/02/18 09:27 06/02/18 09:27 06/02/18 09:27 Oxygen Delivery Method Room Air Weight: 76.6 kg Body Mass Index (BMI) 27.2 Intake and Output for Last 24 Hours 05/31/18 06/01/18 06/02/18 23:59 23:59 23:59 Intake Total 300 / 300 1330 / 1330 Output Total 500 / 500 Balance 300 / 300 830 / 830 Microbiology Past 72 Hours 06/01/18 20:38 Mucosa - Nasopharyngeal Respiratory Panel (PCR) - Final Laboratory Results 06/01/18 14:20: WBC 9.7, RBC 4.87, Hgb 14.4, Hct 40.3, MCV 82.8, MCH 29.6, MCHC 35.7, RDW 12.2, RDW Differential 36.8, Plt Count 345, MPV 9.5, Immature Gran % (Auto) 0.200, Neut % (Auto) 72.7 H, Lymph % (Auto) 17.0 L, [place] % (Auto) 10.1 H, Eos % (Auto) 0.0, Baso % (Auto) 0.0, Absolute Neuts (auto) 7.0, Absolute Lymphs (auto) 1.64, Total Counted Not Reportable 06/01/18 14:20: Sodium 126 L, Potassium 3.8, Chloride 93 L, Carbon Dioxide 26.0, Anion Gap 7, BUN 18, Creatinine 0.77, Estim Creat Clear Calc 72.73, Est GFR (MDRD) Af Amer 98, Est GFR (MDRD) Non-Af 81, BUN/Creatinine Ratio 23.3 H, Glucose 101, Calcium 9.1, Total Bilirubin 0.80, AST 50 H, ALT 88 H, Alkaline Phosphatase 125 H, Total Protein 8.3 H, Albumin 3.9, Globulin 4.4 H, Albumin/Globulin Ratio 0.9 06/01/18 14:20: ESR 9 06/01/18 14:20: C-React Prot Ext Range < 2.90 06/01/18 14:20: Serum Osmolality 267 L 06/01/18 17:23: Ur Random Sodium 116 06/01/18 17:23: Urine Osmolality 558 06/02/18 05:20: Cortisol 13.70 06/02/18 05:20: Sodium 130 L, Potassium 4.0, Chloride 95 L, Carbon Dioxide 27.0, Anion Gap 8, BUN 17, Creatinine 0.68, Estim Creat Clear Calc 82.36, Est GFR (MDRD) Af Amer 114, Est GFR (MDRD) Non-Af 94, BUN/Creatinine Ratio 25.1 H, Glucose 106, Calcium 8.8 Current Medications Acetaminophen (Tylenol) 650 mg PO Q6H PRN PRN PRN Reason: PAIN Last Admin: 06/02/18 04:20 Dose: 650 mg Aspirin (Aspirin, Baby) 81 mg PO DAILY@0800 [facility] Last Admin: 06/02/18 07:48 Dose: 81 mg Sodium Chloride () 1,000 mls @ 100 mls/hr IV .Q10H [facility] Last Admin: 06/02/18 04:20 Dose: 100 mls/hr Ibuprofen (Motrin) 400 mg PO Q4H PRN PRN PRN Reason: MILD PAIN (-07/24) Last Admin: 06/02/18 07:48 Dose: 400 mg Levothyroxine Sodium (Synthroid) 75 mcg PO DAILY@0600 [facility] Last Admin: 06/02/18 06:04 Dose: 75 mcg Melatonin (Melatonin) 3 mg PO QHS [facility] Last Admin: 06/02/18 00:21 Dose: 3 mg Nutritional Formula (Lactose Free) (Ensure Enlive) 120 ml PO 4X/DAY [facility] Last Admin: 06/01/18 22:35 Dose: 120 ml Ondansetron HCl (Zofran Odt) 4 mg PO Q6H PRN PRN PRN Reason: NAUSEA Pantoprazole Sodium (Protonix) 20 mg PO QODAY [facility] Medical Necessity - Tobacco Use Smoking Status: Never smoker Tobacco Use: Non-smoker Assessment/Plan All Active Problems History of ureter stent (Acute) Hyponatremia (Acute) Patient is a 58-year-old lady admitted with intractable nausea associated with significant fatigue. Patient had been diagnosed with hyponatremia by her PCP and was subsequently sent to the ED from where she was admitted to regular nursing floor for subsequent management 1. 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 Patient admitted to regular nursing floor diagnosis confirmed with urine electrolyte studies. Patient also had significant nausea on admission which could have contributed to the SIADH however patient will need to undergo age-related cancer screening when stable by PCP 2. Hypothyroidism-patient is on levothyroxine home dose continued 3. GERD on PPI 4. DVT prophylaxis SC Lovenox Code Visit OBSV E&M: 91136 Subsequent observation care L3
[2018-06-02] MEDS: Ondansetron ODT 4 MG Tablet PO (11:45)
--- NOTE | 2018-06-02 14:21 | CHAPLAIN ---
Type of Pastoral Visit _x__ Initial Visit ___ Follow-up Visit ___ On-call Visit ___ General Patient Visit ___ Spiritual Assessment ___ Family Conference ___ Bereavement ___ Rapid Response ___ Code Blue ___ Other (describe below) Pastoral Care Referral From _x__ Patient ___ Family ___ Nurse ___ Physician ___ Manufacturing Project Manager ___ Backup Administrator ___ Other (describe below) Sacrament/Intervention ___ Active listening ___ Anointing ___ Anabaptism ___ Bereavement ___ Communion ___ Tracey exploration ___ ___ Life review ___ Prayer ___ Reconciliation ___ Sacrament of Sick _x__ Supportive presence ___ Wedding ___ Other (describe below) Pastoral Comments
[2018-06-02] MEDS: proMETHazine 25 MG/ML Syringe 12.5 MG IM (15:20)
[2018-06-02 16:30] VITALS: BP 147/92; PULSE 80; RESP 18; TEMP 36.6; O2SAT 100
[2018-06-02 22:00] VITALS: BP 118/76; PULSE 79; RESP 18; TEMP 36.4; O2SAT 100
[2018-06-02 22:15] VITALS: PULSE 79; RESP 18; O2SAT 100
[2018-06-03 04:15] VITALS: BP 117/75; PULSE 77; RESP 18; TEMP 36.6; O2SAT 100
[2018-06-03] MEDS: Levothyroxine 75 MCG Tablet PO (05:48)
[2018-06-03 09:22] LABS: Hematocrit 36.6 % (37-47); Mean Corp Hgb Conc 35.5 g/gl (32-36); Mean Corpuscular Hgb 29.7 pg (27.0-32.0); Mean Corpuscular Volume 83.6 fL (81-99); Mean Platelet Vol. 9.4 fl (6.2-12.0); Platelet Count 276 K/mm3 (150-450); RBC Distribution Width CV 12.1 % (11.6-14.6); RBC Distribution Width SD 36.5 fl (35.1-43.9); Red Blood Count 4.38 M/mm3 (4.2-5.4); Scan Indicated on CBC? Y/N NO; White Blood Count 7.2 K/mm3 (4.4-11.0)
[2018-06-03 09:40] LABS: BUN 10 mg/dL (7-18); Creatinine, Serum 0.67 mg/dL (0.55-1.02); Estimated Creatinine Clearance 83.59 ml/min; Glucose 121 mg/dL (74-106)
[2018-06-03 09:41] LABS: Anion Gap 7 (5-15); BUN/Creat Ratio 14.9 RATIO (10-20); Calcium,Total 8.3 mg/dL (8.5-10.1); Chloride 94 mmol/L (98-107); EST Glomerular Filtration Rate 95 mL/min (>60); Est Glom Filt Rate - Afr Amer 115 mL/min (>60); Magnesium 1.8 mg/dL (1.6-2.6); Potassium 3.7 mmol/L (3.5-5.1); Sodium Level 127 mmol/L (136-145)
[2018-06-03 10:00] VITALS: BP 146/94; PULSE 83; RESP 18; TEMP 36.6; O2SAT 100
[2018-06-03] MEDS: Aspirin 81 MG TAB.CHEW PO (11:00)
[2018-06-03] MEDS: Pantoprazole Sodium 20 MG Tablet PO (11:00)
[2018-06-03] MEDS: Enoxaparin 40 MG/0.4 ML Syringe SC (11:00)
--- NOTE | 2018-06-03 11:53 | PCM.PN.HOSP ---
Patient Problems: Active and Suspected Problems Hyponatremia (Acute) Subjective: Seen her sodium level did drop down to 127. Did consult nephrology after patient was placed on fluid restriction and discontinuation of her IV fluids Objective: GENERAL: cooperative HEENT: Atraumatic; moist oral mucosa EYES; Anicteric, Normal Conjunctiva NECK; supple, normal thyroid, no distended JVD. RESPIRATORY: Diminished to auscultation bilaterally, CARDIOVASCULAR: Regular S1 S2, no audible murmurs GI: soft, non-tender, normoactive bowel sounds, : No Renal angle tenderness; EXTREMITIES: No edema, no clubbing, no cyanosis. MUSCULOSKELETAL: No Joint Tenderness; no muscle waisting NEURO: Awake; no lateralizing signs. SKIN: No Rash PSYCH; Normal affect Vitals/I&O's: Vital Signs Temp Pulse Resp BP Pulse Ox 97.8 F 83 18 146/94 H 100 06/03/18 10:00 06/03/18 10:00 06/03/18 10:00 06/03/18 10:00 06/03/18 10:00 Oxygen Delivery Method Room Air Weight: 76.6 kg Body Mass Index (BMI) 27.2 Intake and Output for Last 24 Hours 06/01/18 06/02/18 06/03/18 23:59 23:59 23:59 Intake Total 300 / 300 2463 / 2463 1785 / 1785 Output Total 1200 / 1200 2400 / 2400 Balance 300 / 300 1263 / 1263 -615 / -615 Microbiology Past 72 Hours 06/01/18 20:38 Mucosa - Nasopharyngeal Respiratory Panel (PCR) - Final Laboratory Results 06/03/18 09:00: WBC 7.2, RBC 4.38, Hgb 13.0, Hct 36.6 L, MCV 83.6, MCH 29.7, MCHC 35.5, RDW 12.1, RDW Differential 36.5, Plt Count 276, MPV 9.4 06/03/18 09:00: Sodium 127 L, Potassium 3.7, Chloride 94 L, Carbon Dioxide 26.0, Anion Gap 7, BUN 10, Creatinine 0.67, Estim Creat Clear Calc 83.59, Est GFR (MDRD) Af Amer 115, Est GFR (MDRD) Non-Af 95, BUN/Creatinine Ratio 14.9, Glucose 121 H, Calcium 8.3 L, Magnesium 1.8 Current Medications Acetaminophen (Tylenol) 650 mg PO Q6H PRN PRN PRN Reason: PAIN Last Admin: 06/02/18 04:20 Dose: 650 mg Aspirin (Aspirin, Baby) 81 mg PO DAILY@0800 [facility] Last Admin: 06/03/18 11:00 Dose: 81 mg Enoxaparin Sodium (Lovenox) 40 mg SC DAILY [facility] Last Admin: 06/03/18 11:00 Dose: 40 mg Levothyroxine Sodium (Synthroid) 75 mcg PO DAILY@0600 [facility] Last Admin: 06/03/18 05:48 Dose: 75 mcg Melatonin (Melatonin) 3 mg PO QHS [facility] Last Admin: 06/02/18 22:02 Dose: 3 mg Nutritional Formula (Lactose Free) (Ensure Enlive) 120 ml PO 4X/DAY [facility] Last Admin: 06/03/18 10:52 Dose: Not Given Ondansetron HCl (Zofran Odt) 4 mg PO Q6H PRN PRN PRN Reason: NAUSEA Last Admin: 06/02/18 11:45 Dose: 4 mg Pantoprazole Sodium (Protonix) 20 mg PO QODAY [facility] Last Admin: 06/03/18 11:00 Dose: 20 mg Promethazine HCl (Phenergan) 12.5 mg IM Q4H PRN PRN PRN Reason: NAUSEA/VOMITING Last Admin: 06/02/18 15:20 Dose: 12.5 mg Tramadol HCl (Ultram) 50 mg PO TID PRN PRN PRN Reason: MODERATE PAIN (4-5/10) Medical Necessity - Tobacco Use Smoking Status: Never smoker Tobacco Use: Non-smoker Assessment/Plan All Active Problems History of ureter stent (Acute) Hyponatremia (Acute) Patient is a 58-year-old lady admitted with intractable nausea associated with significant fatigue. Patient had been diagnosed with hyponatremia by her PCP and was subsequently sent to the ED from where she was admitted to regular nursing floor for subsequent management 1. 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 Patient admitted to regular nursing floor diagnosis confirmed with urine electrolyte studies. Patient also had significant nausea on admission which could have contributed to the SIADH however patient will need to undergo age-related cancer screening when stable by PCP. With patient sodium level dropping back did discontinue IV fluid placed on fluid restriction and consultation placed to nephrology 2. Hypothyroidism-patient is on levothyroxine home dose continued 3. GERD on PPI 4. DVT prophylaxis SC Lovenox Code Visit Inpatient E&M: 05071 Subs Hosp L2
--- NOTE | 2018-06-03 11:57 | PN_ITS ---
Patient Problems: Active and Suspected Problems Hyponatremia (Acute) Subjective: Seen her sodium level did drop down to 127. Did consult nephrology after patient was placed on fluid restriction and discontinuation of her IV fluids Objective: GENERAL: cooperative HEENT: Atraumatic; moist oral mucosa EYES; Anicteric, Normal Conjunctiva NECK; supple, normal thyroid, no distended JVD. RESPIRATORY: Diminished to auscultation bilaterally, CARDIOVASCULAR: Regular S1 S2, no audible murmurs GI: soft, non-tender, normoactive bowel sounds, : No Renal angle tenderness; EXTREMITIES: No edema, no clubbing, no cyanosis. MUSCULOSKELETAL: No Joint Tenderness; no muscle waisting NEURO: Awake; no lateralizing signs. SKIN: No Rash PSYCH; Normal affect Vitals/I&O's: Vital Signs Temp Pulse Resp BP Pulse Ox 97.8 F 83 18 146/94 H 100 06/03/18 10:00 06/03/18 10:00 06/03/18 10:00 06/03/18 10:00 06/03/18 10:00 Oxygen Delivery Method Room Air Weight: 76.6 kg Body Mass Index (BMI) 27.2 Intake and Output for Last 24 Hours 06/01/18 06/02/18 06/03/18 23:59 23:59 23:59 Intake Total 300 / 300 2463 / 2463 1785 / 1785 Output Total 1200 / 1200 2400 / 2400 Balance 300 / 300 1263 / 1263 -615 / -615 Microbiology Past 72 Hours 06/01/18 20:38 Mucosa - Nasopharyngeal Respiratory Panel (PCR) - Final Laboratory Results 06/03/18 09:00: WBC 7.2, RBC 4.38, Hgb 13.0, Hct 36.6 L, MCV 83.6, MCH 29.7, MCHC 35.5, RDW 12.1, RDW Differential 36.5, Plt Count 276, MPV 9.4 06/03/18 09:00: Sodium 127 L, Potassium 3.7, Chloride 94 L, Carbon Dioxide 26.0, Anion Gap 7, BUN 10, Creatinine 0.67, Estim Creat Clear Calc 83.59, Est GFR (MDRD) Af Amer 115, Est GFR (MDRD) Non-Af 95, BUN/Creatinine Ratio 14.9, Glucose 121 H, Calcium 8.3 L, Magnesium 1.8 Current Medications Acetaminophen (Tylenol) 650 mg PO Q6H PRN PRN PRN Reason: PAIN Last Admin: 06/02/18 04:20 Dose: 650 mg Aspirin (Aspirin, Baby) 81 mg PO DAILY@0800 [facility] Last Admin: 06/03/18 11:00 Dose: 81 mg Enoxaparin Sodium (Lovenox) 40 mg SC DAILY [facility] Last Admin: 06/03/18 11:00 Dose: 40 mg Levothyroxine Sodium (Synthroid) 75 mcg PO DAILY@0600 [facility] Last Admin: 06/03/18 05:48 Dose: 75 mcg Melatonin (Melatonin) 3 mg PO QHS [facility] Last Admin: 06/02/18 22:02 Dose: 3 mg Nutritional Formula (Lactose Free) (Ensure Enlive) 120 ml PO 4X/DAY [facility] Last Admin: 06/03/18 10:52 Dose: Not Given Ondansetron HCl (Zofran Odt) 4 mg PO Q6H PRN PRN PRN Reason: NAUSEA Last Admin: 06/02/18 11:45 Dose: 4 mg Pantoprazole Sodium (Protonix) 20 mg PO QODAY [facility] Last Admin: 06/03/18 11:00 Dose: 20 mg Promethazine HCl (Phenergan) 12.5 mg IM Q4H PRN PRN PRN Reason: NAUSEA/VOMITING Last Admin: 06/02/18 15:20 Dose: 12.5 mg Tramadol HCl (Ultram) 50 mg PO TID PRN PRN PRN Reason: MODERATE PAIN (4-5/10) Medical Necessity - Tobacco Use Smoking Status: Never smoker Tobacco Use: Non-smoker Assessment/Plan All Active Problems History of ureter stent (Acute) Hyponatremia (Acute) Patient is a 58-year-old lady admitted with intractable nausea associated with significant fatigue. Patient had been diagnosed with hyponatremia by her PCP and was subsequently sent to the ED from where she was admitted to regular nursing floor for subsequent management 1. 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 Patient admitted to regular nursing floor diagnosis confirmed with urine electrolyte studies. Patient also had significant nausea on admission which could have contributed to the SIADH however patient will need to undergo age-related cancer screening when stable by PCP. With patient sodium level dropping back did discontinue IV fluid placed on fluid restriction and consultation placed to nephrology 2. Hypothyroidism-patient is on levothyroxine home dose continued 3. GERD on PPI 4. DVT prophylaxis SC Lovenox Code Visit Inpatient E&M: 37543 Subs Hosp L2
--- NOTE | 2018-06-03 12:00 | PCM.CONS.R ---
Problem List (1) Hyponatremia Status: Acute Consultation - Renal PCP/ Referring MD: Requesting physician: [] Primary care physician: Yasir Smith MD - History of Present Illness History of Present Illness: The patient is a 58 year old F past medical history of hypothyroidism and GERD. Patient presented to the hospital with fatigue for 10 days along with a frontal headache and nausea. Also patient has been complaining of decreased appetite and weight loss. At presentation she was found to have low sodium at 126. Patient was given IV fluid sodium improved to 130 yesterday. But sodium dropped again to 127. IV fluid stopped this morning. Patient denied taking any diuretics. No diarrhea. Not on SSRI. She states she rarely takes NSAIDs at home for headache. Patient states she is eating half of her meals now. Review of system: 12 system review is negative except as mentioned HPI [] - Allergies Allergies: Allergies cetirizine [From [employer]] Allergy (Verified 06/01/18 13:53) Unknown - Current Medications Current Medications: Current Medications Acetaminophen (Tylenol) 650 mg PO Q6H PRN PRN PRN Reason: PAIN Last Admin: 06/02/18 04:20 Dose: 650 mg Aspirin (Aspirin, Baby) 81 mg PO DAILY@0800 [facility] Last Admin: 06/03/18 11:00 Dose: 81 mg Enoxaparin Sodium (Lovenox) 40 mg SC DAILY [facility] Last Admin: 06/03/18 11:00 Dose: 40 mg Levothyroxine Sodium (Synthroid) 75 mcg PO DAILY@0600 [facility] Last Admin: 06/03/18 05:48 Dose: 75 mcg Melatonin (Melatonin) 3 mg PO QHS [facility] Last Admin: 06/02/18 22:02 Dose: 3 mg Nutritional Formula (Lactose Free) (Ensure Enlive) 120 ml PO 4X/DAY [facility] Last Admin: 06/03/18 10:52 Dose: Not Given Ondansetron HCl (Zofran Odt) 4 mg PO Q6H PRN PRN PRN Reason: NAUSEA Last Admin: 06/02/18 11:45 Dose: 4 mg Pantoprazole Sodium (Protonix) 20 mg PO QODAY [facility] Last Admin: 06/03/18 11:00 Dose: 20 mg Promethazine HCl (Phenergan) 12.5 mg IM Q4H PRN PRN PRN Reason: NAUSEA/VOMITING Last Admin: 06/02/18 15:20 Dose: 12.5 mg Tramadol HCl (Ultram) 50 mg PO TID PRN PRN PRN Reason: MODERATE PAIN (4-5/10) - Past Medical History Past Medical History (Chronic Problems): Chronic Problems Hypothyroid (Chronic) GERD (gastroesophageal reflux disease) (Chronic) Diverticulitis (Chronic) - Past Surgical History Surgical History: noncontributory - Social History Smoking Status: Never smoker Alcohol: None Drugs: None - Family History Maternal History Items: Hypertension Paternal History Items: Heart Disease, Hypertension Patient Problems: Active and Suspected Problems Hyponatremia (Acute) - Physical Exam General: Alert, Oriented x3 HEENT: Atraumatic Oral: Moist Mucosa, No Gingival or Mucosal Lesions/ Ulcerations Neck: Supple, No JVD Lungs: Clear to auscultation, Normal air movement, No rhonchi, No wheeze Cardiovascular: Regular rate, Regular Rhythm, Normal S1, Normal S2 Abdomen: Bowel Sounds Present, Soft, Non Tender Extremities: No clubbing, No cyanosis, No edema Skin: No rashes Musculoskeletal: No Tenderness to Palpation of Joints or Extremities Lymphatic: No Cervical, Supraclavicular, or Inguinal Adenopathy Neurological: Cranial nerves II-XII grossly intact, Neuro grossly intact Psych/Mental Status: Normal Affect Vital Signs Temp Pulse Resp BP Pulse Ox 97.8 F 83 18 146/94 H 100 06/03/18 10:00 06/03/18 10:00 06/03/18 10:00 06/03/18 10:00 06/03/18 10:00 Oxygen Delivery Method Room Air Weight: 76.6 kg Body Mass Index (BMI) 27.2 Intake and Output for Last 24 Hours 06/01/18 06/02/18 06/03/18 23:59 23:59 23:59 Intake Total 300 / 300 2463 / 2463 1785 / 1785 Output Total 1200 / 1200 2400 / 2400 Balance 300 / 300 1263 / 1263 -615 / -615 Microbiology Past 72 Hours 06/01/18 20:38 Respiratory Panel (PCR) - Final Mucosa - Nasopharyngeal Laboratory Tests Past 24 Hrs 06/03/18 06/03/18 09:00 09:00 WBC 7.2 RBC 4.38 Hgb 13.0 Hct 36.6 L MCV 83.6 MCH 29.7 MCHC 35.5 RDW 12.1 RDW Differential 36.5 Plt Count 276 MPV 9.4 Sodium 127 L Potassium 3.7 Chloride 94 L Carbon Dioxide 26.0 Anion Gap 7 BUN 10 Creatinine 0.67 Estim Creat Clear Calc 83.59 Est GFR (MDRD) Af Amer 115 Est GFR (MDRD) Non-Af 95 BUN/Creatinine Ratio 14.9 Glucose 121 H Calcium 8.3 L Magnesium 1.8 Assessment/Plan All Active Problems History of ureter stent (Acute) Hyponatremia (Acute) 1-normovolemic hyponatremia. New onset. Urine sodium is elevated at 116 and urine osmolality 558. 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 Patient said the mass was not malignant. Patient is not on SSRI. NSAIDs might cause SIADH but patient said she rarely takes NSAIDs. I agree with stopping IV fluids. I will put the patient on fluid restriction 50 ounces daily. No need for 3% sodium chloride. If sodium level is dropping tomorrow, I will start Lasix. Please avoid hydrochlorothiazide. Avoid SSRI. Check sodium level in a.m.. Thank you for the consult. Renal team will continue to follow
--- NOTE | 2018-06-03 12:05 | CON.PCM_ITS ---
Problem List (1) Hyponatremia Status: Acute Consultation - Renal PCP/ Referring MD: Requesting physician: [] Primary care physician: Yasir Smith MD - History of Present Illness History of Present Illness: The patient is a 58 year old F past medical history of hypothyroidism and GERD. Patient presented to the hospital with fatigue for 10 days along with a frontal headache and nausea. Also patient has been complaining of decreased appetite and weight loss. At presentation she was found to have low sodium at 126. Patient was given IV fluid sodium improved to 130 yesterday. But sodium dropped again to 127. IV fluid stopped this morning. Patient denied taking any diuretics. No diarrhea. Not on SSRI. She states she rarely takes NSAIDs at home for headache. Patient states she is eating half of her meals now. Review of system: 12 system review is negative except as mentioned HPI [] - Allergies Allergies: Allergies cetirizine [From [employer]] Allergy (Verified 06/01/18 13:53) Unknown - Current Medications Current Medications: Current Medications Acetaminophen (Tylenol) 650 mg PO Q6H PRN PRN PRN Reason: PAIN Last Admin: 06/02/18 04:20 Dose: 650 mg Aspirin (Aspirin, Baby) 81 mg PO DAILY@0800 [facility] Last Admin: 06/03/18 11:00 Dose: 81 mg Enoxaparin Sodium (Lovenox) 40 mg SC DAILY [facility] Last Admin: 06/03/18 11:00 Dose: 40 mg Levothyroxine Sodium (Synthroid) 75 mcg PO DAILY@0600 [facility] Last Admin: 06/03/18 05:48 Dose: 75 mcg Melatonin (Melatonin) 3 mg PO QHS [facility] Last Admin: 06/02/18 22:02 Dose: 3 mg Nutritional Formula (Lactose Free) (Ensure Enlive) 120 ml PO 4X/DAY [facility] Last Admin: 06/03/18 10:52 Dose: Not Given Ondansetron HCl (Zofran Odt) 4 mg PO Q6H PRN PRN PRN Reason: NAUSEA Last Admin: 06/02/18 11:45 Dose: 4 mg Pantoprazole Sodium (Protonix) 20 mg PO QODAY [facility] Last Admin: 06/03/18 11:00 Dose: 20 mg Promethazine HCl (Phenergan) 12.5 mg IM Q4H PRN PRN PRN Reason: NAUSEA/VOMITING Last Admin: 06/02/18 15:20 Dose: 12.5 mg Tramadol HCl (Ultram) 50 mg PO TID PRN PRN PRN Reason: MODERATE PAIN (4-5/10) - Past Medical History Past Medical History (Chronic Problems): Chronic Problems Hypothyroid (Chronic) GERD (gastroesophageal reflux disease) (Chronic) Diverticulitis (Chronic) - Past Surgical History Surgical History: noncontributory - Social History Smoking Status: Never smoker Alcohol: None Drugs: None - Family History Maternal History Items: Hypertension Paternal History Items: Heart Disease, Hypertension Patient Problems: Active and Suspected Problems Hyponatremia (Acute) - Physical Exam General: Alert, Oriented x3 HEENT: Atraumatic Oral: Moist Mucosa, No Gingival or Mucosal Lesions/ Ulcerations Neck: Supple, No JVD Lungs: Clear to auscultation, Normal air movement, No rhonchi, No wheeze Cardiovascular: Regular rate, Regular Rhythm, Normal S1, Normal S2 Abdomen: Bowel Sounds Present, Soft, Non Tender Extremities: No clubbing, No cyanosis, No edema Skin: No rashes Musculoskeletal: No Tenderness to Palpation of Joints or Extremities Lymphatic: No Cervical, Supraclavicular, or Inguinal Adenopathy Neurological: Cranial nerves II-XII grossly intact, Neuro grossly intact Psych/Mental Status: Normal Affect Vital Signs Temp Pulse Resp BP Pulse Ox 97.8 F 83 18 146/94 H 100 06/03/18 10:00 06/03/18 10:00 06/03/18 10:00 06/03/18 10:00 06/03/18 10:00 Oxygen Delivery Method Room Air Weight: 76.6 kg Body Mass Index (BMI) 27.2 Intake and Output for Last 24 Hours 06/01/18 06/02/18 06/03/18 23:59 23:59 23:59 Intake Total 300 / 300 2463 / 2463 1785 / 1785 Output Total 1200 / 1200 2400 / 2400 Balance 300 / 300 1263 / 1263 -615 / -615 Microbiology Past 72 Hours 06/01/18 20:38 Respiratory Panel (PCR) - Final Mucosa - Nasopharyngeal Laboratory Tests Past 24 Hrs 06/03/18 06/03/18 09:00 09:00 WBC 7.2 RBC 4.38 Hgb 13.0 Hct 36.6 L MCV 83.6 MCH 29.7 MCHC 35.5 RDW 12.1 RDW Differential 36.5 Plt Count 276 MPV 9.4 Sodium 127 L Potassium 3.7 Chloride 94 L Carbon Dioxide 26.0 Anion Gap 7 BUN 10 Creatinine 0.67 Estim Creat Clear Calc 83.59 Est GFR (MDRD) Af Amer 115 Est GFR (MDRD) Non-Af 95 BUN/Creatinine Ratio 14.9 Glucose 121 H Calcium 8.3 L Magnesium 1.8 Assessment/Plan All Active Problems History of ureter stent (Acute) Hyponatremia (Acute) 1-normovolemic hyponatremia. New onset. Urine sodium is elevated at 116 and urine osmolality 558. 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 Patient said the mass was not malignant. Patient is not on SSRI. NSAIDs might cause SIADH but patient said she rarely takes NSAIDs. I agree with stopping IV fluids. I will put the patient on fluid restriction 50 ounces daily. No need for 3% sodium chloride. If sodium level is dropping tomorrow, I will start Lasix. Please avoid hydrochlorothiazide. Avoid SSRI. Check sodium level in a.m.. Thank you for the consult. Renal team will continue to follow
--- NOTE | 2018-06-03 13:34 | CASEMGMT ---
RN CM Assessment Presentation: fatigued, headache nausea, hyponatremia PCP: Dr. Smith Specialists: Dr. Blake [facility] Insurance: Prescription Benefit: yes LNOK: Mother Living Arrangements: independent Transportation: drives DME/HHC: none DC PLAN: Home, no needs identified. Pt states her family can pick her up on discharge.
[2018-06-03 16:40] VITALS: BP 116/82; PULSE 88; RESP 14; TEMP 36.9; O2SAT 100
[2018-06-03 20:34] VITALS: BP 129/92; PULSE 77; RESP 16; TEMP 36.6; O2SAT 100
[2018-06-03] MEDS: Acetaminophen 325 MG Tablet 650 MG PO (20:38)
[2018-06-03] MEDS: MELATONIN 3 MG TABLET PO (20:38)
[2018-06-04] MEDS: traMADol 50 MG Tablet PO (02:06)
[2018-06-04 02:15] VITALS: BP 120/82; PULSE 72; RESP 16; TEMP 36.6; O2SAT 100
[2018-06-04] MEDS: Acetaminophen 325 MG Tablet 650 MG PO ×2 (05:18→14:04)
[2018-06-04] MEDS: Levothyroxine 75 MCG Tablet PO (05:19)
[2018-06-04 07:31] LABS: Hematocrit 38.5 % (37-47); Hemoglobin 13.5 g/dl (12.0-15.0); Mean Corp Hgb Conc 35.1 g/gl (32-36); Mean Corpuscular Hgb 29.3 pg (27.0-32.0); Mean Corpuscular Volume 83.5 fL (81-99); Mean Platelet Vol. 9.6 fl (6.2-12.0); Platelet Count 267 K/mm3 (150-450); RBC Distribution Width CV 12.4 % (11.6-14.6); RBC Distribution Width SD 37.4 fl (35.1-43.9); Red Blood Count 4.61 M/mm3 (4.2-5.4); White Blood Count 7.7 K/mm3 (4.4-11.0)
[2018-06-04] MEDS: Aspirin 81 MG TAB.CHEW PO (07:31)
[2018-06-04] MEDS: Enoxaparin 40 MG/0.4 ML Syringe SC (07:31)
[2018-06-04 07:32] LABS: Scan Indicated on CBC? Y/N NO
[2018-06-04 07:34] VITALS: BP 128/84; PULSE 78; RESP 16; TEMP 36.5; O2SAT 100
[2018-06-04 07:36] LABS: BUN 14 mg/dL (7-18); Creatinine, Serum 0.64 mg/dL (0.55-1.02); Estimated Creatinine Clearance 87.51 ml/min; Glucose 104 mg/dL (74-106)
[2018-06-04 07:37] LABS: Anion Gap 8 (5-15); BUN/Creat Ratio 21.8 RATIO (10-20); Calcium,Total 8.9 mg/dL (8.5-10.1); Chloride 92 mmol/L (98-107); EST Glomerular Filtration Rate 100 mL/min (>60); Est Glom Filt Rate - Afr Amer 121 mL/min (>60); Potassium 3.9 mmol/L (3.5-5.1); Sodium Level 128 mmol/L (136-145)
[2018-06-04] MEDS: Furosemide 100 MG/10 ML Vial 60 MG IV (08:20)
[2018-06-04 10:30] LABS: Anion Gap 10 (5-15); BUN 14 mg/dL (7-18); BUN/Creat Ratio 20.9 RATIO (10-20); Calcium,Total 8.8 mg/dL (8.5-10.1); Chloride 90 mmol/L (98-107); Creatinine, Serum 0.67 mg/dL (0.55-1.02); EST Glomerular Filtration Rate 96 mL/min (>60); Est Glom Filt Rate - Afr Amer 116 mL/min (>60); Estimated Creatinine Clearance 83.59 ml/min; Glucose 140 mg/dL (74-106); Potassium 3.4 mmol/L (3.5-5.1); Sodium Level 125 mmol/L (136-145)
--- NOTE | 2018-06-04 11:34 | PN_ITS ---
Patient Problems: Active and Suspected Problems Hyponatremia (Acute) Subjective: No improvement to patient's sodium levels which continue to drop Objective: GENERAL: cooperative HEENT: Atraumatic; moist oral mucosa EYES; Anicteric, Normal Conjunctiva NECK; supple, normal thyroid, no distended JVD. RESPIRATORY: Diminished to auscultation bilaterally, CARDIOVASCULAR: Regular S1 S2, no audible murmurs GI: soft, non-tender, normoactive bowel sounds, : No Renal angle tenderness; EXTREMITIES: No edema, no clubbing, no cyanosis. MUSCULOSKELETAL: No Joint Tenderness; no muscle waisting NEURO: Awake; no lateralizing signs. SKIN: No Rash PSYCH; Normal affect Vitals/I&O's: Vital Signs Temp Pulse Resp BP Pulse Ox 97.7 F L 78 16 128/84 H 100 06/04/18 07:34 06/04/18 07:34 06/04/18 07:34 06/04/18 07:34 06/04/18 07:34 Oxygen Delivery Method Room Air Weight: 76.6 kg Body Mass Index (BMI) 27.2 Intake and Output for Last 24 Hours 06/02/18 06/03/18 06/04/18 23:59 23:59 23:59 Intake Total 2463 / 2463 2725 / 2725 75 / 75 Output Total 1200 / 1200 4900 / 4900 700 / 700 Balance 1263 / 1263 -2175 / -2175 -625 / -625 Microbiology Past 72 Hours 06/01/18 20:38 Mucosa - Nasopharyngeal Respiratory Panel (PCR) - Final Laboratory Results 06/04/18 06:50: WBC 7.7, RBC 4.61, Hgb 13.5, Hct 38.5, MCV 83.5, MCH 29.3, MCHC 35.1, RDW 12.4, RDW Differential 37.4, Plt Count 267, MPV 9.6 06/04/18 06:50: Sodium 128 L, Potassium 3.9, Chloride 92 L, Carbon Dioxide 28.0, Anion Gap 8, BUN 14, Creatinine 0.64, Estim Creat Clear Calc 87.51, Est GFR (MDRD) Af Amer 121, Est GFR (MDRD) Non-Af 100, BUN/Creatinine Ratio 21.8 H, Glucose 104, Calcium 8.9, Magnesium 2.0 06/04/18 10:10: Sodium 125 L, Potassium 3.4 L, Chloride 90 L, Carbon Dioxide 25.0, Anion Gap 10, BUN 14, Creatinine 0.67, Estim Creat Clear Calc 83.59, Est GFR (MDRD) Af Amer 116, Est GFR (MDRD) Non-Af 96, BUN/Creatinine Ratio 20.9 H, Glucose 140 H, Calcium 8.8 Current Medications Acetaminophen (Tylenol) 650 mg PO Q6H PRN PRN PRN Reason: PAIN Last Admin: 06/04/18 05:18 Dose: 650 mg Aspirin (Aspirin, Baby) 81 mg PO DAILY@0800 [facility] Last Admin: 06/04/18 07:31 Dose: 81 mg Enoxaparin Sodium (Lovenox) 40 mg SC DAILY [facility] Last Admin: 06/04/18 07:31 Dose: 40 mg Levothyroxine Sodium (Synthroid) 75 mcg PO DAILY@0600 [facility] Last Admin: 06/04/18 05:19 Dose: 75 mcg Melatonin (Melatonin) 3 mg PO QHS [facility] Last Admin: 06/03/18 20:38 Dose: 3 mg Nutritional Formula (Lactose Free) (Ensure Enlive) 120 ml PO 4X/DAY [facility] Last Admin: 06/04/18 07:33 Dose: Not Given Ondansetron HCl (Zofran Odt) 4 mg PO Q6H PRN PRN PRN Reason: NAUSEA Last Admin: 06/02/18 11:45 Dose: 4 mg Pantoprazole Sodium (Protonix) 20 mg PO QODAY [facility] Last Admin: 06/03/18 11:00 Dose: 20 mg Promethazine HCl (Phenergan) 12.5 mg IM Q4H PRN PRN PRN Reason: NAUSEA/VOMITING Last Admin: 06/02/18 15:20 Dose: 12.5 mg Tramadol HCl (Ultram) 50 mg PO TID PRN PRN PRN Reason: MODERATE PAIN (4-5/10) Last Admin: 06/04/18 02:06 Dose: 50 mg Medical Necessity - Tobacco Use Smoking Status: Never smoker Tobacco Use: Non-smoker Assessment/Plan All Active Problems History of ureter stent (Acute) Hyponatremia (Acute) Patient is a 58-year-old lady admitted with intractable nausea associated with significant fatigue. Patient had been diagnosed with hyponatremia by her PCP and was subsequently sent to the ED from where she was admitted to regular nursing floor for subsequent management 1. 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 Patient admitted to regular nursing floor diagnosis confirmed with urine electrolyte studies. Patient also had significant nausea on admission which could have contributed to the SIADH however patient will need to undergo age-related cancer screening when stable by PCP. With patient sodium level dropping back did discontinue IV fluid placed on fluid restriction and consultation placed to nephrology. Patient was seen by Dr. Blake; Case was discussed with him. Did review his recommendation. Patient sodium level as of 06/04/2017 still remains low 2. Hypothyroidism-patient is on levothyroxine home dose continued 3. GERD on PPI 4. DVT prophylaxis SC Lovenox Code Visit Inpatient E&M: 46612 Subs Hosp L2
[2018-06-04 11:45] VITALS: BP 142/97; PULSE 94; RESP 16; TEMP 36.1; O2SAT 100
[2018-06-04] MEDS: Ondansetron ODT 4 MG Tablet PO ×2 (14:01→22:10)
[2018-06-04] MEDS: SODIUM CHLORIDE 1 GM TABLET PO ×2 (14:04→21:04)
[2018-06-04 14:05] VITALS: BP 131/83; PULSE 89; RESP 16; TEMP 36.6; O2SAT 99
--- NOTE | 2018-06-04 14:07 | PCM.PN.REN ---
Patient Problems: Active and Suspected Problems Hyponatremia (Acute) Subjective: Pt has no nausea/headache today.No SOB. No CP - Physical Exam General: Alert, Oriented x3 HEENT: Atraumatic Oral: Moist Mucosa Neck: Supple, No JVD Lungs: Clear to auscultation, Normal air movement, No rhonchi, No wheeze Cardiovascular: Regular rate Abdomen: Bowel Sounds Present Extremities: No clubbing, No cyanosis, No edema Skin: No rashes Musculoskeletal: No Tenderness to Palpation of Joints or Extremities Lymphatic: No Cervical, Supraclavicular, or Inguinal Adenopathy Neurological: Cranial nerves II-XII grossly intact Psych/Mental Status: Normal Affect Vital Signs Temp Pulse Resp BP Pulse Ox 97 F L 94 16 142/97 H 100 06/04/18 11:45 06/04/18 11:45 06/04/18 11:45 06/04/18 11:45 06/04/18 11:45 Oxygen Delivery Method Room Air Weight: 76.6 kg Body Mass Index (BMI) 27.2 Intake and Output for Last 24 Hours 06/02/18 06/03/18 06/04/18 23:59 23:59 23:59 Intake Total 2463 / 2463 2725 / 2725 425 / 425 Output Total 1200 / 1200 4900 / 4900 2049 / 2049 Balance 1263 / 1263 -2175 / -2175 -1625 / -1625 Microbiology Past 72 Hours 06/01/18 20:38 Respiratory Panel (PCR) - Final Mucosa - Nasopharyngeal Laboratory Tests Past 24 Hrs 06/04/18 06/04/18 06/04/18 06:50 06:50 10:10 WBC 7.7 RBC 4.61 Hgb 13.5 Hct 38.5 MCV 83.5 MCH 29.3 MCHC 35.1 RDW 12.4 RDW Differential 37.4 Plt Count 267 MPV 9.6 Sodium 128 L 125 L Potassium 3.9 3.4 L Chloride 92 L 90 L Carbon Dioxide 28.0 25.0 Anion Gap 8 10 BUN 14 14 Creatinine 0.64 0.67 Estim Creat Clear Calc 87.51 83.59 Est GFR (MDRD) Af Amer 121 116 Est GFR (MDRD) Non-Af 100 96 BUN/Creatinine Ratio 21.8 H 20.9 H Glucose 104 140 H Calcium 8.9 8.8 Magnesium 2.0 Medical Necessity - Tobacco Use Smoking Status: Never smoker Tobacco Use: Non-smoker Assessment/Plan All Active Problems History of ureter stent (Acute) Hyponatremia (Acute) 1-normovolemic hyponatremia. New onset.Asymptomatic Urine sodium is elevated at 116 and urine osmolality 558. 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 Patient said the mass was not malignant. Patient is not on SSRI. NSAIDs might cause SIADH but patient said she rarely takes NSAIDs. Na level worsens today despite fluid restriction. Pt received one dose of lasix 60 mg IV this am I will start the patient on salt tab 1 g TID.Continue fluid restriction 50 ounces daily. No need for 3% sodium chloride. If sodium level is dropping tomorrow, I will give one dose of tolvaptan 15 mg one time Please avoid hydrochlorothiazide. Avoid SSRI. Check sodium level in a.m.. Renal team will continue to follow
[2018-06-04 20:03] VITALS: BP 123/82; PULSE 79; RESP 16; TEMP 36.8; O2SAT 94
[2018-06-04] MEDS: Polyethylene Glycol 3350 17 GM PACKET PO (20:11)
[2018-06-04] MEDS: MELATONIN 3 MG TABLET PO (21:04)
[2018-06-05 02:00] VITALS: BP 122/82; PULSE 89; RESP 16; TEMP 36.9; O2SAT 98
[2018-06-05] MEDS: SODIUM CHLORIDE 1 GM TABLET PO (05:41)
[2018-06-05] MEDS: Levothyroxine 75 MCG Tablet PO (05:41)
[2018-06-05 06:37] LABS: Hematocrit 41.4 % (37-47); Hemoglobin 14.9 g/dl (12.0-15.0); Mean Corpuscular Volume 83.3 fL (81-99); Mean Platelet Vol. 9.8 fl (6.2-12.0); Platelet Count 335 K/mm3 (150-450); RBC Distribution Width CV 12.4 % (11.6-14.6); RBC Distribution Width SD 37.2 fl (35.1-43.9); Red Blood Count 4.97 M/mm3 (4.2-5.4); White Blood Count 7.8 K/mm3 (4.4-11.0)
[2018-06-05 06:39] LABS: Scan Indicated on CBC? Y/N NO
[2018-06-05 07:01] LABS: Anion Gap 8 (5-15); BUN 22 mg/dL (7-18); Calcium,Total 9.6 mg/dL (8.5-10.1); Chloride 91 mmol/L (98-107); Creatinine, Serum 0.82 mg/dL (0.55-1.02); EST Glomerular Filtration Rate 76 mL/min (>60); Est Glom Filt Rate - Afr Amer 92 mL/min (>60); Glucose 96 mg/dL (74-106); Magnesium 2.2 mg/dL (1.6-2.6); Potassium 4.2 mmol/L (3.5-5.1); Sodium Level 129 mmol/L (136-145)
[2018-06-05 07:40] VITALS: BP 125/92; PULSE 89; RESP 16; TEMP 36.9; O2SAT 100
[2018-06-05] MEDS: Aspirin 81 MG TAB.CHEW PO (08:57)
[2018-06-05] MEDS: Pantoprazole Sodium 20 MG Tablet PO (08:59)
--- NOTE | 2018-06-05 09:05 | PCM.DC ---
- Discharge Diagnoses Current Active Problems: Current Active and Chronic Problems Hyponatremia (Acute) Hypothyroid (Chronic) GERD (gastroesophageal reflux disease) (Chronic) Diverticulitis (Chronic) You will use the following diet at home:: Fluid restricted (specify 2000 mls, 1500 mls) - 1500 Your food should be the consistency of: Regular Discharge Activity: Return to Normal Activity Allergies/Adverse Reactions: Allergies cetirizine [From [facility]] Allergy (Verified 06/01/18 13:53) Unknown Medications to take at Discharge Aspirin [Aspirin, Baby] 81 mg PO DAILY@0800 11/16/17 Levothyroxine Sodium 75 mcg PO DAILY 06/01/18 Multivit-Min/Iron/Folic/Lutein [Centrum Silver Women Tablet] 1 tab PO DAILY 06/01/18 Sodium Chloride 1 gm PO TID #60 tablet 06/05/18 The following prescriptions were given: Sodium Chloride 1 gm PO TID #60 tablet Primary Care Physician: Yasir Smith MD [Primary Care Provider] - Please follow up with your Primary Care Physician in: On 06/07/2018 for BMP check Test Results: Test results from this visit will be discussed in further detail at your follow-up appointment, if applicable. Proposed Discharge Date: 06/05/18
--- NOTE | 2018-06-05 09:07 | PCM.DC.SUM ---
Discharge Date and Diagnosis - Problem List Patient Problems: Active and Suspected Problems Hyponatremia (Acute) Date of Admission: 06/01/17 Date of Discharge: 06/05/18 - Primary Discharge Diagnosis Active and Suspected Problems Hyponatremia (Acute) - Secondary Discharge Diagnosis Chronic Problems History of ureter stent (Chronic) Hypothyroid (Chronic) GERD (gastroesophageal reflux disease) (Chronic) Diverticulitis (Chronic) Hospital Course and Treatment Summary of Care Provided: Patient is a 58-year-old lady admitted with intractable nausea associated with significant fatigue. Patient had been diagnosed with hyponatremia by her PCP and was subsequently sent to the ED from where she was admitted to regular nursing floor for subsequent management 1. 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 Patient admitted to regular nursing floor diagnosis confirmed with urine electrolyte studies. Patient also had significant nausea on admission which could have contributed to the SIADH however patient will need to undergo age-related cancer screening when stable by PCP. With patient sodium level dropping back did discontinue IV fluid placed on fluid restriction and consultation placed to nephrology. Patient was seen by Dr. Blake; Case was discussed with him. Did review his recommendation.. Patient was discharged home once sodium level came up to 129. She had been prescribed sodium chloride tablets prescription written on discharge. Also did review patient home medications and her ibuprofen as well as omeprazole (both PPI and NSAIDs known to cause SIADH) discontinued on discharge this was discussed with patient 2. Hypothyroidism-patient is on levothyroxine home dose continued 3. GERD on PPI 4. DVT prophylaxis SC Lovenox Patient Problems: Active and Suspected Problems Hyponatremia (Acute) Objective: GENERAL: cooperative HEENT: Atraumatic; moist oral mucosa EYES; Anicteric, Normal Conjunctiva NECK; supple, normal thyroid, no distended JVD. RESPIRATORY: Diminished to auscultation bilaterally, CARDIOVASCULAR: Regular S1 S2, no audible murmurs GI: soft, non-tender, normoactive bowel sounds, : No Renal angle tenderness; EXTREMITIES: No edema, no clubbing, no cyanosis. MUSCULOSKELETAL: No Joint Tenderness; no muscle waisting NEURO: Awake; no lateralizing signs. SKIN: No Rash - Physical Exam Vital Signs Temp Pulse Resp BP Pulse Ox 98.5 F 89 16 125/92 H 100 06/05/18 07:40 06/05/18 07:40 06/05/18 07:40 06/05/18 07:40 06/05/18 07:40 Oxygen Delivery Method Room Air Weight: 76.6 kg Body Mass Index (BMI) 27.2 Intake and Output for Last 24 Hours 06/03/18 06/04/18 06/05/18 23:59 23:59 23:59 Intake Total 2725 / 2725 1195 / 1195 200 / 200 Output Total 4900 / 4900 2500 / 2500 Balance -2175 / -2175 -1305 / -1305 200 / 200 Microbiology Past 72 Hours 06/01/18 20:38 Respiratory Panel (PCR) - Final Mucosa - Nasopharyngeal Laboratory Tests Past 24 Hrs 06/04/18 06/05/18 06/05/18 10:10 05:50 05:50 WBC 7.8 RBC 4.97 Hgb 14.9 Hct 41.4 MCV 83.3 MCH 30.0 MCHC 36.0 RDW 12.4 RDW Differential 37.2 Plt Count 335 MPV 9.8 Sodium 125 L 129 L Potassium 3.4 L 4.2 Chloride 90 L 91 L Carbon Dioxide 25.0 30.0 Anion Gap 10 8 BUN 14 22 H Creatinine 0.67 0.82 Estim Creat Clear Calc 83.59 68.30 Est GFR (MDRD) Af Amer 116 92 Est GFR (MDRD) Non-Af 96 76 BUN/Creatinine Ratio 20.9 H 27.0 H Glucose 140 H 96 Calcium 8.8 9.6 Magnesium 2.2 Discharge Diet: 8 Cup Fluid Restriciton Discharge Activity: Return to Normal Activity Home Medications: Medications to take at Discharge Aspirin [Aspirin, Baby] 81 mg PO DAILY@0800 11/16/17 Levothyroxine Sodium 75 mcg PO DAILY 06/01/18 Multivit-Min/Iron/Folic/Lutein [Centrum Silver Women Tablet] 1 tab PO DAILY 06/01/18 Sodium Chloride 1 gm PO TID #60 tablet 06/05/18 Following Prescrptions Were Given to Patient: Sodium Chloride 1 gm PO TID #60 tablet Primary Care Physician: Yasir Smith MD [Primary Care Provider] - Please follow up with your Primary Care Physician in: On 06/07/2018 for BMP check Please Follow Up With: Collins Blake MD When: in 1 week Disposition: Home Minutes spent on discharge:: 35 Patient Condition:: Stable Medical Necessity - Tobacco Use Smoking Status: Never smoker Tobacco Use: Non-smoker Meaningful Use Info Meaningful Use Diagnoses (Choose all that apply): None applicable Code Visit Inpatient E&M: 37107 Disch Hosp
--- NOTE | 2018-06-06 14:45 | CASEMGMT ---
JUAN QUEVEDO DC PHONE CALL DC DATE: 06/05/18 DC DISPOSITION: Home LACE/STRATA:01/17 DC APPOINTMENTS: Appt tomorrow Intro role of CM to patient via phone. Pt states she is doing well, has her prescriptions filled. No questions re: instructions, medications or f/u. Will see physician tomorrow. Jeri POSADAS RN AC
--- OUTSIDE RECORDS SUMMARY | 2018-08-06 14:35 | XMS RPT_ITS ---
:1960 Author Organization OHIP Support Name Relationship Address Phone HELDER, BEBE Unavailable [address] + [place] [address] CHANDAN, NELA Unavailable [address] + [place] [address] UE Unavailable Unavailable Unavailable HELDER, BEBE Unavailable [address] + [place] [address] CHANDAN, NELA Unavailable [address] + [place] [address] UE Unavailable Unavailable Unavailable HELDER, BEBE Unavailable [address] + [place] [address] CHANDAN, NELA Unavailable [address] + [place] [address] UE Unavailable Unavailable Unavailable HELDER, BEBE Unavailable [address] + [place] [address] CHANDAN, NELA Unavailable [address] + [place] [address] UE Unavailable Unavailable Unavailable HELDER, BEBE Unavailable [address] + [place] [address] CHANDAN, NELA Unavailable [address] + [place] [address] UE Unavailable Unavailable Unavailable HELDER, BEBE Unavailable [address] + [place] [address] CHANDAN, NELA Unavailable [address] + [place] [address] UE Unavailable Unavailable Unavailable HELDER, BEBE Unavailable [address] + [place] [address] CHANDAN, NELA Unavailable [address] + [place] [address] UE Unavailable Unavailable Unavailable HELDER, BEBE Unavailable [address] + [place] [address] CHANDAN, NELA Unavailable [address] + [place] [address] UE Unavailable Unavailable Unavailable HELDER, BEBE Unavailable [address] + [place] [address] CHANDAN, NELA Unavailable [address] + [place] [address] UE Unavailable Unavailable Unavailable HELDER, BEBE Unavailable [address] + [place] [address] CHANDAN, NELA Unavailable [address] + [place] [address] UE Unavailable Unavailable Unavailable HELDER, BEBE Unavailable [address] + [place] [address] CHANDAN, NELA Unavailable [address] + [place] [address] UE Unavailable Unavailable Unavailable HELDER, BEBE Unavailable [address] + [place] [address] CHANDAN, NELA Unavailable [address] + [place] [address] UE Unavailable Unavailable Unavailable HELDER, BEBE Unavailable [address] + [place] [address] CHANDAN, NELA Unavailable [address] + [place] [address] UE Unavailable Unavailable Unavailable HELDER, BEBE Unavailable [address] + [place] [address] CHANDAN, NELA Unavailable [address] + [place] [address] UE Unavailable Unavailable Unavailable HELDER, BEBE Unavailable [address] + [place] [address] CHANDAN, NELA Unavailable [address] + [place] [address] UE Unavailable Unavailable Unavailable HELDER, BEBE Unavailable [address] + [place] [address] CHANDAN, NELA Unavailable [address] + [place] [address] UE Unavailable Unavailable Unavailable BEEB PENDLETON Unavailable [address] + [place] [address] CHANDAN, NELA Unavailable [address] + [place] [address] UE Unavailable Unavailable Unavailable Care Team Providers Name Role Phone RAUL CLIFTON Admitting Unavailable RAUL CLIFTON Attending Unavailable RAUL CLIFTON Referring Unavailable ETIENNE, RAUL Referring Unavailable RAUL CLIFTON Referring Unavailable RAUL CLIFTON Referring Unavailable LALA HENRY Attending Unavailable LALA HENRY Referring Unavailable RAUL CLIFTON Attending Unavailable LALA HENRY Referring Unavailable RAUL CLIFTON Referring Unavailable FELA BONDS (PA) Referring Unavailable GHAZAL OSBORN (PA) Attending Unavailable YUNIEL LAND (DIRECTOR OF LAND ACQUISITION) Referring Unavailable ANIKA HDZ (DANIEL) Attending Unavailable LOLA GRACE Attending Unavailable PRIYANKA SMITH Referring Unavailable RAUL CLIFTON Attending Unavailable ERIKA VALADEZ Attending Unavailable ERIKA VALADEZ Referring Unavailable LOLA GRACE Attending Unavailable PRIYANKA SMITH Referring Unavailable ERIKA VALADEZ Attending Unavailable BRODERICK OHARA Attending Unavailable LOLA GRACE Referring Unavailable ERIKA VALADEZ Attending Unavailable RAUL CLIFTON Attending Unavailable RAUL CLIFTON Referring Unavailable ERIKA VALADEZ Referring Unavailable ERIKA VALADEZ Attending Unavailable LOLA GRACE Admitting Unavailable LOLA GRACE Attending Unavailable LOLA GRACE Referring Unavailable BRODERICK OHARA Attending Unavailable PRIYANKA SMITH Referring Unavailable BRODERICK OHARA Attending Unavailable PRIYANKA SMITH Referring Unavailable HARSHA GLASS Referring Unavailable HARSHA GLASS Referring Unavailable PRIYANKA SMITH Attending Unavailable PRIYANKA SMITH Attending Unavailable PRIYANKA SMITH Referring Unavailable Priyanka Smith Primary Care Unavailable Ana Olvera Attending Unavailable Priyanka Smith Primary Care Unavailable Herbie, Monica Admitting Unavailable Jordan Myles Attending Unavailable Collins Blake Unavailable Herbie, Monica Admitting Unavailable Lang Herrera Attending Unavailable Priyanka Smith Primary Care Unavailable Sementi, Monica Consulting Unavailable Sementi, Monica Admitting Unavailable SilkeeJordan Attending Unavailable [facility] Unavailable Kittoe, Jordan Consulting Unavailable Sementi, Monica Admitting Unavailable SilkeeJordan Attending Unavailable [facility] Unavailable Bakhous, Aziz Consulting Unavailable Kittoe, Jordan Consulting Unavailable Sementi, Monica Admitting Unavailable SilkeeJordan Attending Unavailable [facility] Unavailable Bakhous, Aziz Consulting Unavailable Kittoe, Jordan Consulting Unavailable Sementi, Monica Admitting Unavailable Kittoe, Jordan Attending Unavailable [facility] Care Unavailable Bakhous, Aziz Consulting Unavailable Kittoe, Jordan Consulting Unavailable [facility] Care Unavailable Koram, Lana Althea Admitting Unavailable Bakhous, Aziz Consulting Unavailable Heraclio Yip Attending Unavailable Koram, Lana Althea Admitting Unavailable Koram, Lana Althea Attending Unavailable [facility] Care Unavailable Bakhous, Aziz Consulting Unavailable Koram, Lana Althea Consulting Unavailable Koram, Lana Althea Admitting Unavailable Lang Herrera Attending Unavailable [facility] Unavailable Bakhous, Aziz Consulting Unavailable Koram, Lana Althea Consulting Unavailable Koram, Lana Althea Admitting Unavailable Lang Herrera Attending Unavailable [facility] Care Unavailable Bakhous, Aziz Consulting Unavailable Koram, Lana Althea Consulting Unavailable Koram, Lana Althea Admitting Unavailable Lang Herrera Attending Unavailable [facility] Care Unavailable Bakhous, Aziz Consulting Unavailable Heraclio Yip Consulting Unavailable [facility] Primary Care Unavailable Matt Pak Attending Unavailable Lola Grace Attending Unavailable Lola Grace Referring Unavailable [facility] Primary Care Unavailable Broderick Ohara Admitting Unavailable Broderick Ohara Attending Unavailable Broderick [place]ara Referring Unavailable [facility] Primary Care Unavailable Lola Grace Attending Unavailable Broderick [place] Referring Unavailable [facility] Unavailable Jacek Barton Attending Unavailable Heraclio Toth Referring Unavailable PROBLEMS PROBLEMS DATE TYPE CONDITION / CODE ATTENDING STATUS SOURCE 05/30/2018 Active Hypo-osmolality and NA Active [facility] hyponatremia / [facility] Main E87.1(ICD-10) [place] Repository 05/28/2018 Active Other fatigue / NA Active [facility] R53.83(ICD-10) [facility] [place] Repository 05/28/2018 Active Nausea / R11.0(ICD-10) NA Active [facility] [place] Repository 12/22/2017 Active Diverticulitis of LOLA GRACE Active [facility] intestine, part [place] Clinic Main unspecified, without [place] perforation or abscess Repository without bleeding / K57.92(ICD-10) 12/16/2017 Active Unknown / UNK(Unknown) NA Active [facility] Other [place] Repository 01/25/2018 Unknown R94.31 - Abnormal [place], Active [place] electrocardiogram [facility] [ECG] [EKG] / Hospital R94.31(ICD-10) Repository 12/13/2017 Active Unspecified ovarian NA Active [facility] cyst, unspecified side Clinic Main / N83.209(ICD-10) [place] Repository 12/06/2017 Active Encounter for NA Active [facility] screening mammogram [facility] for malignant neoplasm [place] of breast / Repository Z12.31(ICD-10) 11/25/2017 Active Unspecified ovarian NA Active [facility] cyst, left side / [facility] N83.202(ICD-10) [place] Repository 11/23/2017 Active Other specified NA Active [facility] postprocedural states Clinic Other / Z98.890(ICD-10) [place] Repository 10/13/2017 Active 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 of Clinic Other first carpometacarpal [place] joint, right hand / Repository M18.11(ICD-10) 10/01/2017 Active Hypothyroidism, NA Active [facility] unspecified / [facility] Main E03.9(ICD-10) [place] Repository 11/01/2017 Active Abnormal levels of NA Active [facility] other serum enzymes / Clinic Main R74.8(ICD-10) [place] Repository 10/01/2017 Active Encounter for other NA Active [facility] preprocedural [facility] Main examination / [place] Z01.818(ICD-10) Repository 07/29/2017 Active Other specific NA Active [facility] arthropathies, not Clinic Main elsewhere classified, [place] left shoulder / Repository M12.812(ICD-10) PROCEDURES PROCEDURES No Procedure Records FoundRESULTS RESULTS DISCHARGE SUMMARY Observed: 06/11/2018 Status: F Source: [place] 1:54 PM [facility] REPOSITORY [facility] Medical Records Department [address] [place] [address] Discharge Summary 06/11/18 1333 MR#: [id number] Acct: [id number] Name: ASIA HAWLEY Rep #: [id number] : 1960 58 From: Lang EASLEY PCP: Luis BHATT,Priyanka Status: DIS IN Y Location: [place] [id number] <Lang Herrera - Last Filed: 06/11/18 13:33> Discharge Date and Diagnosis Date of Admission: 06/08/18 Date of Discharge: 06/11/18 - Primary Discharge Diagnosis 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 CT/Chest WITH Contrast IMPRESSION: Findings suggesting mild degree of scarring in the anterior medial aspect of the right middle lobe as well as the medial aspect of the lingular segment of the left upper lobe. Consultations: Nephrology- [facility] Operations: None Procedures: None Summary of Care Provided: Hospital course: The patient is a 58 year old F past medical history of hypothyroidism, diverticulitis with prior colon resection, benign ovarian mass status post complete hysterectomy, who was recently admitted to the hospital and diagnosed with SIADH as per elevated urine osmolality and urine sodium of 116. She represented to the emergency room with return of her symptoms-the symptoms include nausea, fatigue, and tongue numbness with a change in taste sensation. Her sodium had declined to 125 despite home fluid restriction and salt tablets. Her renal function was stable. She was readmitted to the PCU and placed on telemetry. Nephrology was consulted. A CT of the chest and abdomen were obtained to look for malignancy in these were negative. She appeared euvolemic throughout her stay. She was placed on fluid restriction, Lasix, and salt tablets. She initially improved, however she had an increased oral intake the following day and her SIADH worsened. She was placed on an even greater fluid restriction-800 cc/day. With this her sodium increased and her symptoms improved dramatically by the following day. Is felt that she was stable for discharge, she was discharged in stable condition advised to follow-up with her PCP in 1 week, and to follow-up with nephrology in 1-2 weeks. I advised her to have her BMP checked in 3 days. She will continue Lasix, salt tablets, and 800 cc fluid restriction per day. This patient was seen by Lang Herrera PA-C under the supervision of Doctor Phi. [] - Physical Exam General: Alert, Oriented x3, Cooperative HEENT: Atraumatic, PERRLA, EOMI, Normocephalic Neck: Supple, No JVD, Negative Carotid Bruits Lungs: Clear to auscultation, Normal air movement Cardiovascular: Regular rate, No murmurs Abdomen: Bowel Sounds Present, Soft, Non Tender Extremities: No edema, Capillary Refill Less than 3 Seconds Skin: No rashes, No breakdown Musculoskeletal: No Tenderness to Palpation of Joints or Extremities Neurological: Cranial nerves II-XII grossly intact Psych/Mental Status: Normal Affect, Appropriate Vital Signs Temp Pulse Resp BP Pulse Ox 98.1 F 97 16 118/69 97 06/11/18 09:46 06/11/18 11:05 06/11/18 09:46 06/11/18 09:46 06/11/18 09:46 Oxygen Delivery Method Room Air Weight: 165 lb 12.602 oz Body Mass Index (BMI) 26.7 Intake and Output for Last 24 Hours Intake Total 1480 / 1480 930 / 930 120 / 120 Output Total 2300 / 2300 1950 / 1950 700 / 700 Balance -820 / -820 -1020 / -1020 -580 / -580 Laboratory Tests Past 24 Hrs Sodium 129 L Potassium 3.5 Chloride 89 L Carbon Dioxide 29.0 Discharge Diet: - - Fluid restriction of 800 cc/day Discharge Activity: Return to Normal Activity Home Medications: Medications to take at Discharge Aspirin [Aspirin, Baby] 81 mg PO DAILY@0800 11/16/17 Levothyroxine Sodium 75 mcg PO DAILY 06/01/18 Multivit-Min/Iron/Folic/Lutein [Centrum Silver Women Tablet] 1 tab PO DAILY 06/01/18 Furosemide [Lasix] 40 mg PO BIDLX #60 tablet 06/11/18 Sodium Chloride 1 gm PO TID #90 tab 06/11/18 Following Prescrptions Were Given to Patient: Furosemide [Lasix] 40 mg PO BIDLX #60 tablet Sodium Chloride 1 gm PO TID #90 tab Other Amb Orders: Basic Metabolic Profile (BMP) Time Frame: 3 Days, Location: Laboratory Primary Care Physician: Priyanka Smith MD [Primary Care Provider] - Please follow up with your Primary Care Physician in: 1 weeks Please Follow Up With: Collins Blake MD When: 1-2 weeks Please Follow Up With: Priyanka Smith MD When: 1 week Disposition: Home Minutes spent on discharge:: 35 Patient Condition:: Stable Medical Necessity - Tobacco Use Smoking Status: Never smoker Tobacco Use: Non-smoker - has been exposed to second hand smoke Meaningful Use Info Meaningful Use Diagnoses (Choose all that apply): None applicable <Heraclio Yip - Last Filed: 06/11/18 13:53> Discharge Date and Diagnosis - Secondary Discharge Diagnosis Chronic Problems History of ureter stent (Chronic) Hypothyroid (Chronic) GERD (gastroesophageal reflux disease) (Chronic) Diverticulitis (Chronic) Hospital Course and Treatment Operations: None Procedures: None Summary of Care Provided: Patient seen and examined independently. Data reviewed. I agree with the above note by the physician botany laboratory assistant. The patient is a 58 year old F presents for the 2nd time with month with nausea. Again, she was hyponatremic. [place] to be due to SIADH. Nephrology was consulted. With fluid restriction, lasix and salt tablets, her sodium improved. She will continue with salt tablets and fluid restriction of 800cc/day. She will follow up with nephrology and have outpt labs.[] - Physical Exam General: Alert, Cooperative HEENT: Atraumatic, Normocephalic Lungs: Clear to auscultation, Normal air movement, No rhonchi, No wheeze Cardiovascular: Regular rate, Regular Rhythm, Normal S1, Normal S2 Abdomen: Bowel Sounds Present, Soft, Non Tender, Non-Distended Vital Signs Temp Pulse Resp BP Pulse Ox 36.7 C 97 16 118/69 97 06/11/18 09:46 06/11/18 11:05 06/11/18 09:46 06/11/18 09:46 06/11/18 09:46 Oxygen Delivery Method Room Air Weight: 75.2 kg Body Mass Index (BMI) 26.7 Intake and Output for Last 24 Hours Intake Total 1480 / 1480 930 / 930 120 / 120 Output Total 2300 / 2300 1950 / 1950 700 / 700 Balance -820 / -820 -1020 / -1020 -580 / -580 Laboratory Tests Past 24 Hrs Sodium 129 L Potassium 3.5 Chloride 89 L Carbon Dioxide 29.0 Discharge Diet: - Discharge Activity: Return to Normal Activity Disposition: Home Minutes spent on discharge:: 35 Patient Condition:: Good Medical Necessity - Tobacco Use Smoking Status: Never smoker Tobacco Use: Non-smoker Meaningful Use Info Meaningful Use Diagnoses (Choose all that apply): None applicable Code Visit Inpatient E AND M: 63629 Disch Hosp 06/11/18 1338 <Electronically signed by Lang EASLEY> Date Lang EASLEY 06/11/18 1354 <Electronically signed by Heraclio Yip DO> Cosigner Signature (if applicable): Date Heraclio Yip DO CC: KAUSHAL Herrera; Collins Blake MD; Heraclio Yip DO; Priyanka Smith MD Signed DISCHARGE INSTRUCTION Observed: 06/11/2018 Status: F Source: [place] 11:17 AM [facility] REPOSITORY [facility] Medical Records Department [address] [place] [address] Instructions for Home/Discharge Instructions 06/11/18 1114 MR#: [id number] Acct: [id number] Name: ASIA HAWLEY Rep #: [id number] : 1960 58 From: Lang EASLEY PCP: Priyanka Smith MD Status: ADM IN You will use the following diet at home:: Fluid restricted (specify 2000 mls, 1500 mls) - 800 mls free water per day Your food should be the consistency of: Regular Your liquids should be the consistency of: Regular/Thin Discharge Activity: Return to Normal Activity Allergies/Adverse Reactions: Allergies cetirizine [From [facility]] Allergy (Verified 06/01/18 13:53) Unknown Medications to take at Discharge Aspirin [Aspirin, Baby] 81 mg PO DAILY@0800 11/16/17 Levothyroxine Sodium 75 mcg PO DAILY 06/01/18 Multivit-Min/Iron/Folic/Lutein [Centrum Silver Women Tablet] 1 tab PO DAILY 06/01/18 Furosemide [Lasix] 40 mg PO BIDLX #60 tablet 06/11/18 Sodium Chloride 1 gm PO TID #90 tablet 06/11/18 The following prescriptions were given: Furosemide [Lasix] 40 mg PO BIDLX #60 tablet Sodium Chloride 1 gm PO TID #90 tablet Orders to be completed after discharge: Basic Metabolic Profile (BMP) Time Frame: 3 Days, Location: Laboratory Primary Care Physician: Priyanka Smith MD [Primary Care Provider] - Please follow up with your Primary Care Physician in: 1 weeks Test Results: Test results from this visit will be discussed in further detail at your follow-up appointment, if applicable. Please Follow Up With: Collins Blake MD When: 1-2 weeks Proposed Discharge Date: 06/11/18 06/11/18 1117 <Electronically signed by Lang EASLEY> Date Lang EASLEY CC: Collins Blake MD; Priyanka Smith MD Signed BASIC METABOLIC Collected: 06/11/2018 Status: F Source: [place] PROFILE (BMP) 5:38 AM [facility] REPOSITORY TYPE CODE TESTS RESULT OUT OF RANGE REFERENCE UNITS LAB L501.0100 74-106 mg/dL Normal GLU 92 Result Comment: Please note revised GLUCOSE reference range effective 2017. LAB L501.1000 7-18 mg/dL Normal BUN 15 LAB L501.1100 0.55-1.02 mg/dL Normal CREAT,SERUM 0.76 Result Comment: The validity of the calculated GFR AND GFRAA in patients over 70 years has not been determined. Clinical correlation is essential. LAB L501.1110 >60 mL/min Normal EST GFR 83 Result Comment: Non- GFR Calc LAB L501.1115 >60 mL/min Normal EST GFR - AA 100 Result Comment: GFR Calc LAB L501.1255 ml/min Normal Estimated CRCL 73.69 LAB L501.1300 10-20 RATIO Normal BUN/CRE 19.8 LAB L501.2200 8.5-10 mg/dL Normal .1 CA 9.4 LAB L501.5300 136-14 mmol/L Low 5 NA 129 LAB L501.5600 3.5-5. mmol/L Normal 1 K 3.5 LAB L501.5900 98-107 mmol/L Low CL 89 LAB L501.6100 21.0-3 mmol/L Normal 2.0 CO2 29.0 LAB L501.6200 5-15 Normal GAP 11 Performed By: #### L500.2500 #### [facility] Laboratory [address] [place], [address] BASIC METABOLIC Collected: 06/10/2018 Status: F Source: [place] PROFILE ([facility]) 5:10 AM [facility] REPOSITORY TYPE CODE TESTS RESULT OUT OF RANGE REFERENCE UNITS LAB L501.0100 74-106 mg/dL Normal GLU 95 Result Comment: Please note revised GLUCOSE reference range effective 2017. LAB L501.1000 7-18 mg/dL Normal BUN 12 LAB L501.1100 0.55-1.02 mg/dL Normal CREAT,SERUM 0.70 Result Comment: The validity of the calculated GFR AND GFRAA in patients over 70 years has not been determined. Clinical correlation is essential. LAB L501.1110 >60 mL/min Normal EST GFR 91 Result Comment: Non- GFR Calc LAB L501.1115 >60 mL/min Normal EST GFR - AA 110 Result Comment: GFR Calc LAB L501.1255 ml/min Normal Estimated CRCL 80.01 LAB L501.1300 10-20 RATIO Normal BUN/CRE 17.1 LAB L501.2200 8.5-10 mg/dL Normal .1 CA 9.0 LAB L501.5300 136-14 mmol/L Low 5 NA 125 LAB L501.5600 3.5-5. mmol/L Normal 1 K 3.7 LAB L501.5900 98-107 mmol/L Low CL 90 LAB L501.6100 21.0-3 mmol/L Normal 2.0 CO2 28.0 LAB L501.6200 5-15 Normal GAP 7 Performed By: #### L500.2500 #### [facility] Laboratory [address] [place], [place], [id number] BASIC METABOLIC Collected: 06/09/2018 Status: F Source: [place] PROFILE (BMP) 5:05 AM [facility] REPOSITORY TYPE CODE TESTS RESULT OUT OF RANGE REFERENCE UNITS LAB L501.0100 74-106 mg/dL Normal GLU 88 Result Comment: Please note revised GLUCOSE reference range effective 2017. LAB L501.1000 7-18 mg/dL Normal BUN 12 LAB L501.1100 0.55-1.02 mg/dL Normal CREAT,SERUM 0.63 Result Comment: The validity of the calculated GFR AND GFRAA in patients over 70 years has not been determined. Clinical correlation is essential. LAB L501.1110 >60 mL/min Normal EST GFR 102 Result Comment: Non- GFR Calc LAB L501.1115 >60 mL/min Normal EST GFR - AA 123 Result Comment: GFR Calc LAB L501.1255 ml/min Normal Estimated CRCL 88.90 LAB L501.1300 10-20 RATIO Normal BUN/CRE 19.0 LAB L501.2200 8.5-10 mg/dL Normal .1 CA 9.0 LAB L501.5300 136-14 mmol/L Low 5 NA 128 LAB L501.5600 3.5-5. mmol/L Normal 1 K 3.9 LAB L501.5900 98-107 mmol/L Low CL 92 LAB L501.6100 21.0-3 mmol/L Normal 2.0 CO2 27.0 LAB L501.6200 5-15 Normal GAP 9 Performed By: #### L500.2500 #### [facility] Laboratory [address] [place], [place], [address] CBC W/DIFF, AUTOMATED Collected: 06/09/2018 Status: F Source: [place] 5:05 AM [facility] REPOSITORY TYPE CODE TESTS RESULT OUT OF RANGE REFERENCE UNITS LAB L100.1000 4.4-11.0 K/mm3 Normal WBC 7.6 LAB L100.1200 4.2-5.4 M/mm3 Normal RBC 4.68 LAB L100.1300 12.0-15.0 g/dl Normal HGB 13.7 LAB L100.1400 37-47 % Normal HCT 38.9 LAB L100.1500 81-99 fL Normal MCV 83.1 LAB L100.1600 27.0-32.0 pg Normal MCH 29.3 LAB L100.1700 32-36 g/gl Normal MCHC 35.2 LAB L100.1810 11.6-14.6 % Normal RDW CV 12.4 LAB L100.1820 35.1-43.9 fl Normal RDW SD 37.4 LAB L100.1900 150-450 K/mm3 Normal PLT 309 LAB L100.2000 6.2-12.0 fl Normal MPV 9.6 LAB L100.2100 47-70 % Normal NEUT% 56.7 LAB L100.2200 19-41 % Normal LY% 30.6 LAB L100.2300 0-10 % High MONO% 12.3 LAB L100.2400 0-5 % Normal EO% 0.0 LAB L100.2500 0-1 % Normal BASO% 0.0 LAB L100.2550 0.0-0.9 % Normal IM GRAN % 0.400 Result Comment: IG% - Immature Granulocytes (promyelocytes, myelocytes and metamyelocytes) > 1% indicates that a LEFT SHIFT is Present. LAB L100.2620 2.0-7.7 X10 3/uL Normal Absolute Neut 4.3 LAB L100.2720 0.83-4.51 X10 3/ul Normal Absolute Lymph 2.31 Performed By: #### L100.0100 #### [facility] Laboratory [address] [facility] [place], [address] HISTORY AND PHYSICAL Observed: 06/08/2018 Status: F Source: [place] EXAM 4:10 PM [facility] REPOSITORY [facility] Medical Records Department [address] [place] [address] History and Physical 06/08/18 1357 MR#: [id number] Acct: [id number] Name: ASIA HAWLEY Rep #: [id number] : 1960 58 From: Lana Lacy MD PCP: Luis BHATT,Priyanka Status: ADM CRUZ Y Location: [place] [id number] History of Present Illness Date of Admission: 06/08/18 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: hyponatremia The patient is a 58 year old F with a past medical history of GERD and hypothyroidism. She was admitted with a complaint of generalized fatigue over days duration. Patient was discharged about 3 days ago from [facility] after she was admitted and managed for acute onset hyponatremia. During that admission she was diagnosed with SIADH and account of elevated urine osmolality and urine sodium of 116. She responded to salt tablets and Lasix was on admission and was discharged home with a sodium of 129. She was continued taking his salt tablets. She states she saw her primary care doctor about 2 days ago and his sodium level is 127. Patient says she was not feeling well was feeling very lethargic and so did not take her sodium tablets last night. She decided to come into the ED on account of worsening fatigue. She denied any fever or chills, palpitations or dizziness, abdominal pain, diarrhea or vomiting. She did admit to weight loss which was unintentional. She says she is to be about 180 kg at the beginning of the month but now weighs 168 pounds. 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 She also had a colonoscopy recently in December 2017 on account of diverticular disease for which she had a hemicolectomy done. On admission, sodium was 125. She is been admitted to be managed for hyponatremia. [] Past Medical History Past Medical History (Chronic Problems): Chronic Problems History of ureter stent (Chronic) Hypothyroid (Chronic) GERD (gastroesophageal reflux disease) (Chronic) Diverticulitis (Chronic) Allergies cetirizine [From [facility]] Allergy (Verified 06/01/18 13:53) Unknown Home Medications: Ambulatory Orders Medication Instructions Recorded Aspirin [Aspirin, Baby] 81 mg PO DAILY@0800 11/16/17 Surgical History: noncontributory Lives: Alone Smoking Status: Never smoker Tobacco Use: Non-smoker - has been exposed to second hand smoke Alcohol: None Drugs: None - *Family History Maternal History Items: Hypertension Paternal History Items: Heart Disease, Hypertension Review of Systems Constitutional: Reports: Malaise, Fatigue. Denies: Anorexia, Chills, Fever Eyes: Denies: Blurred vision HEENT: Denies: Head Aches, Sinus Congestion, Sinus Drainage Cardiovascular: Denies: Chest Pain, Palpitations Respiratory: Denies: Cough, Shortness of breath at rest, Sputum production Gastrointestinal: Denies: Abdominal Pain, Nausea, Vomiting Genitourinary: Denies: Dysuria Musculoskeletal: Denies: Joint Pain, Joint Tenderness Skin: Denies: Rash, Wounds Neurological: Denies: Numbness, Tingling, Focal weakness Psychiatric: Denies: Anxiety, Depression, Homicidal Ideations, Suicidal Ideations Hematologic/ Lymphatic: Denies: Easy Bruising, Easy Bleeding VTE Information - Inpt Only VTE Present on Admission: No VTE Pharm Prophylaxis ordered?: Yes - Physical Exam General: Alert, Oriented x3, Cooperative, Lethargic HEENT: Atraumatic, PERRLA, EOMI, Normocephalic Oral: Moist Mucosa Neck: Supple, No JVD, Negative Carotid Bruits Lungs: Clear to auscultation, Normal air movement, No rhonchi, No wheeze, No rales Cardiovascular: Regular rate, Regular Rhythm, Normal S1, Normal S2, No murmurs Abdomen: Bowel Sounds Present, Soft, Non Tender, Non-Distended, No Hepato-splenomegaly Extremities: No clubbing, No cyanosis, No edema, Capillary Refill Less than 3 Seconds Skin: No rashes, No breakdown Musculoskeletal: No Tenderness to Palpation of Joints or Extremities Lymphatic: No Cervical, Supraclavicular, or Inguinal Adenopathy Neurological: Cranial nerves II-XII grossly intact, Deep Tendon Reflexes 2+/4 and Symmetrical, Neuro grossly intact, Motor Exam 5/5 strength throughout Psych/Mental Status: Normal Affect, Appropriate, Alert and oriented to time, place, person, mood and affect Vital Signs Temp Pulse Resp BP Pulse Ox 99 F 92 16 146/93 H 100 06/08/18 08:47 06/08/18 11:07 06/08/18 08:47 06/08/18 08:47 06/08/18 08:47 Oxygen Delivery Method Room Air Weight: 165 lb 12.602 oz Body Mass Index (BMI) 26.7 Intake and Output for Last 24 Hours Intake Total 240 / 240 Output Total 130 / 130 Balance 110 / 110 Laboratory Tests Past 24 Hrs WBC 10.7 RBC 5.02 Hgb 14.8 Hct 40.9 MCV 81.5 MCH 29.5 MCHC 36.2 H Diagnostic Data Abdomen/Pelvis CT 06/08/18 09:39 IMPRESSION: Large amount of fecal material is seen in the colon. Electronically Signed: Joaquin Ellington MD at 13:37 EST , Service support , Chest CT 06/08/18 09:39 IMPRESSION: Findings suggesting mild degree of scarring in the anterior medial aspect of the right middle lobe as well as the medial aspect of the lingular segment of the left upper lobe. Electronically Signed: Joaquin Ellington MD at 13:40 EST , Service support , Assessment/Plan All Active Problems Hyponatremia (Acute) 58 y.o female admitted with a complaint of generalised fatigue and found to have hyponatremia 1. Acute hyponatremia duetSIADH * patient recently diagnosed with SIADH and discharged just 3 days ago * sodium was 129 on discharge * sodium today is 125 * serum osmolality done 06/01/18 was low-267; will therefore not do serum osmolality * urine osmolality was >500, and urine sodium was 116 * admit to PCU with telemetry * consult nephrology * resume salt tablets * fluid restriction to 1500cc * per nephro, to start on PO lasix 40mg daily 2. Unexplained weight loss * says she has lost 15 pounds over the last few weeks. * had a mammogram 1 year ago which was normal, had a colonoscopy in December 2017. * CT of the chest abdomen and pelvis with and without contrast ordered showed no evidence of any potential malignancy. * We will continue to monitor. * 3. SIADH: etiology not clear. management as under 1. 4. Hypothyroidism * TSH was 1.82 on admission. * on synthroid * DVT prophylaxis: heparin Code Visit Inpatient E AND M: [id number] Init Hosp L3 06/08/18 1610 <Electronically signed by Lana Lacy MD> Date Lana Lacy MD Cosigner Signature: Date (if applicable) CC: Priyanka Smith MD; Lana Lacy MD Signed EMERGENCY DEPARTMENT Observed: 06/08/2018 Status: F Source: [place] SUMMARY 3:27 PM [facility] REPOSITORY [facility] Medical Records Department [address] [place] [address] Emergency Department Summary 06/08/18 0721 MR#: [id number] Acct: [id number] Name: ASIA HAWLEY Rep #: [id number] : 1960 58 From: Guillermo Vu MD PCP: Priyanka Smith MD Status: ADM CRUZ - ER Visit Summary Date of Service: 06/08/18 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: Generalized weakness. I think my sodium is low again History of Present Illness: The patient is a 58 F history of hypothyroidism, diverticular colitis and recently low sodium. Patient denies any recent med changes. She was treated as an outpatient and admitted for low sodium. She was just discharged on Wednesday. Says she just feels weak all over and believes her sodium may be low again. She denies any vomiting or diarrhea. She is on no blood pressure medications. She is currently on salt tablets. Physical Examination: Older female no acute distress. Vital signs are stable and afebrile. H EENT exam unremarkable. Moist mucous membranes. Neck nontender no lymphadenopathy. Lungs clear to auscultation bilaterally. Heart regular rhythm rate about 105 no murmur. Abdomen is soft and nontender. Normal bowel sounds no peritoneal signs. She is moving all 4 extremities. There is no edema. She has normal motor strength with collar feller to both hands. 5 out of 5. Dorsi plantar flexion intact. Back is nontender. Skin is unremarkable. Neurologically she is awake and alert with no focal motor deficits. Test Results: CBC shows white count of 10. Hemoglobin 14. No bands. BMP shows sodium of 125. Chloride at 91. Gap of 9. Creatinine is 0.7. Emergency Department Course and Treatment: Patient treated with a liter of normal saline. Pills as prescribed 3 times a day. The only when she missed was last night she said she felt so poorly. She is requesting admission. Treatment Plan: I have the hospitalist on page. Disposition: Admission Impression: Acute generalized weakness secondary to hyponatremia History of SIADH of uncertain etiology This note was generated with [employer] dictation software. It may contain incorrect words, spelling, and punctuation that were not noted in review of the chart prior to signing ED Disposition - Plan for ED Patient: 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: Abn Labs Referrals: Priyanka Smith MD [Primary Care Provider] - What to do if you have Problems For any increased pain, shortness of breath, bleeding, nausea or vomiting, chest pain, or any unexpected problems, contact your Primary Care Provider. Call [facility] ([phone]) or report to the closest Emergency Room. Call 911 if necessary. 06/08/18 1527 <Electronically signed by Guillermo Vu MD> Date Guillermo Vu MD Cosigner Signature (If Indicated): Date CC: Priyanka Smith MD CONSULTATION Observed: 06/08/2018 Status: F Source: [place] 9:57 AM [facility] REPOSITORY [facility] Medical Records Department [address] [place] [id number] Consultation 06/08/18 0947 MR#: [id number] Acct: [id number] Name: ASIA HAWLEY Rep #: [id number] : 1960 58 From: Collins Blake MD PCP: Priyanka Smith MD Status: ADM CRUZ Y Location: [place] [address] Problem List (1) Hyponatremia Status: Acute Consultation - Renal PCP/ Referring MD: Requesting physician: [] Primary care physician: Priyanka Smith MD - History of Present Illness History of Present Illness: [The patient is a 58 year old F past medical history of hypothyroidism and GERD. Patient was admitted recently for hyponatremia. Workup showed SIADH as an etiology. Patient responded well to Lasix and salt tablet. At discharge, sodium was 129. Discharge with salt tablets 1 g p.o. 3 times a day. patient followED with her PCP yesterday when her sodium was found to be 127. Patient did not feel well after dinner yesterday and presented to the emergency room. In the ED, sodium was found to be low at 125. Patient did not take salt tablet last night. Patient just complaining of headache this morning but she thinks because she has not eaten yet this morning. No nausea no vomiting no blurry vision. She thinks she is slightly better than yesterday. Review of system Review of system: 12 system review is negative except as mentioned HPI - Allergies Allergies: Allergies cetirizine [From [facility]] Allergy (Verified 06/01/18 13:53) Unknown - Current Medications Current Medications: Current Medications Aspirin (Aspirin, Baby) 81 mg PO DAILY@0800 SHANTA Enoxaparin Sodium (Lovenox) 40 mg SC DAILY@1000 SHANTA Levothyroxine Sodium (Synthroid) 75 mcg PO DAILY SHANTA Magnesium Hydroxide (Milk Of Magnesia) 30 ml PO DAILY PRN PRN PRN Reason: Constipation Non-Formulary Medication (Multivit-Min/Iron/Folic/Lutein [Centrum Silver Women Tablet]) 1 tab PO DAILY SHANTA Non-Formulary Medication (Sodium Chloride) 1 gm PO TID SHANTA - Past Medical History Past Medical History (Chronic Problems): Chronic Problems History of ureter stent (Chronic) Hypothyroid (Chronic) GERD (gastroesophageal reflux disease) (Chronic) Diverticulitis (Chronic) - Past Surgical History Surgical History: noncontributory - Social History Smoking Status: Never smoker - Family History Maternal History Items: Hypertension Paternal History Items: Heart Disease, Hypertension - Physical Exam General: Alert, Oriented x3 HEENT: Atraumatic Oral: Moist Mucosa Neck: Supple, No JVD Lungs: Clear to auscultation, Normal air movement Cardiovascular: Regular rate, Regular Rhythm, Normal S1, Normal S2 Abdomen: Bowel Sounds Present, Non Tender, Non-Distended Extremities: No clubbing, No cyanosis, No edema Skin: No rashes Musculoskeletal: No Tenderness to Palpation of Joints or Extremities Lymphatic: No Cervical, Supraclavicular, or Inguinal Adenopathy Neurological: Cranial nerves II-XII grossly intact, Neuro grossly intact Psych/Mental Status: Normal Affect Vital Signs Temp Pulse Resp BP Pulse Ox 99 F 91 16 146/93 H 100 06/08/18 08:47 06/08/18 08:47 06/08/18 08:47 06/08/18 08:47 06/08/18 08:47 Oxygen Delivery Method Room Air Weight: 75.2 kg Body Mass Index (BMI) 26.7 Laboratory Tests Past 24 Hrs WBC 10.7 RBC 5.02 Hgb 14.8 Hct 40.9 MCV 81.5 MCH 29.5 MCHC 36.2 H Assessment/Plan All Active Problems Hyponatremia (Acute) 1-normovolemic hyponatremia. New onset. Etiology was proven to be from SIADH from previous admission when urine sodium was 116 and urine osmolarity was 558. Previous admission, she responded well to Lasix and salt tablet along with fluid restriction. I agree with continuing itching of fluid restriction 1000 mL a day. I will continue salt tablets 1 g 3 times daily. I will start the patient Lasix 40 mg p.o. daily. Regarding the etiology of SIADH still unclear. Patient has been losing weight. Patient states she has lost 15 pounds in the last month. I agree with doing a CAT scan of the pelvis/abdomen and chest looking for any mass. 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 Patient said the mass was not malignant. Patient has not been on SSRI. No need for 3% sodium chloride. Please avoid hydrochlorothiazide. Avoid SSRI. Check sodium level in a.m.. Thank you for the consult. Renal team will continue to follow d/w Dr. Lacy 06/08/18 0957 <Electronically signed by Collins Blake MD> Date Collins Blake MD Cosigner Signature (if applicable): Date CC: Collins Blake MD; Priyanka Smith MD Signed ABDOMEN/PELVIS WITH Observed: 06/08/2018 Status: F Source: [place] CONTRAST 9:41 AM [facility] REPOSITORY [facility] Imaging Services [address] [place] [address] Abdomen/Pelvis WITH Contrast MR#: [id number] Acct: [id number] Name: ASIA HAWLEY Rep #: [id number] : 1960 F 58 From: Joaquin Ellington MD PCP: Luis BHATT,Priyanka Status: ADM CRUZ Study: Abdomen/Pelvis WITH Contrast Date of Exam: 06/08/18 Exam# [id number] Ordering Dr: Lana Lacy MD STUDY: CT ABDOMEN AND PELVIS WITH CONTRAST REASON FOR EXAM: Female, 58 years old. Unexplained weight loss. RADIATION DOSAGE (If Supplied By Facility): CTDIvol = ( 19.94 ) mGy, DLP = ( 913.94 ) mGycm TECHNIQUE: Transaxial images were obtained from the dome of the diaphragm to the symphysis pubis with oral contrast. 100 ml of Isovue 300 contrast was administered. Sagittal and coronal images were reconstructed. Individualized dose optimization techniques were used for this CT. COMPARISON: Comparison is made with prior study dated November 16, 2017. FINDINGS: The visualized lung bases are unremarkable. The visualized portions of the heart are within normal limits. Normal liver. Normal gallbladder and extrahepatic biliary system. Normal spleen. Normal pancreas. Normal bilateral adrenal glands. Normal right kidney. Normal left kidney. Normal visualized stomach. Normal small intestine. A large amount of fecal material is seen in the colon. Limits of anastomosis at the rectosigmoid junction. The patient is status post appendectomy. Normal abdominal aorta. Normal inferior vena cava. Normal retroperitoneum. Normal urinary bladder. The patient is status post bilateral oophorectomy. Normal abdominal wall. There are diffuse degenerative changes of the visualized lumbar spine. Stable loss of height of the superior endplate of the T11 vertebrae. CT/Abdomen/Pelvis WITH Contrast IMPRESSION: Large amount of fecal material is seen in the colon. Electronically Signed: Joaquin Ellington MD at 13:37 EST , Service support , CC: Priyanka Smith MD; Lana Lacy MD Manager Statistical Programming: Signed CHEST WITH CONTRAST Observed: 06/08/2018 Status: F Source: [place] 9:41 AM [facility] REPOSITORY [facility] Imaging Services [address] [place] [address] Chest WITH Contrast MR#: [id number] Acct: [id number] Name: ASIA HAWLEY Rep #: [id number] : 1960 F 58 From: Joaquin Ellington MD PCP: Priyanka Smith MD Status: ADM CRUZ Study: Chest WITH Contrast Date of Exam: 06/08/18 Exam# [id number] Ordering Dr: Lana Lacy MD STUDY: CT CHEST WITH CONTRAST REASON FOR EXAM: Female, 58 years old. Unexplained weight loss. RADIATION DOSAGE (If Supplied By Facility): CTDIvol = ( 19.94 ) mGy, DLP = ( 913.94 ) mGycm TECHNIQUE: Transaxial imaging was performed following intravenous administration of 100 ml of Isovue 300 contrast material. Multiplanar coronal and sagittal images were reformatted. Individualized dose optimization techniques were used for this CT. COMPARISON: None. FINDINGS: There is a 1 cm hypodensity in the posterior aspect of the right lobe of the thyroid inferiorly. Mild degree of increased linear markings with focal areas of bronchiectasis in the medial aspect of the right middle lobe as well as in the medial aspect of the lingular segment of the left upper lobe. There is no demonstrated pleural abnormality. Normal heart and pericardium. Normal mediastinum. Normal hilar regions. Normal enhanced pulmonary arteries. Normal aorta arch and descending thoracic aorta. There are mild degenerative changes of the thoracic spine. Mild loss of height of the superior endplate of the T11 vertebrae. There is no demonstrated abnormality of the visualized upper abdomen. CT/Chest WITH Contrast IMPRESSION: Findings suggesting mild degree of scarring in the anterior medial aspect of the right middle lobe as well as the medial aspect of the lingular segment of the left upper lobe. Electronically Signed: Joaquin Ellington MD at 13:40 EST , Service support , CC: Priyanka Smith MD; Lana Lacy MD Manager Statistical Programming: Signed CBC W/DIFF, AUTOMATED Collected: 06/08/2018 Status: F Source: [place] 7:02 AM [facility] REPOSITORY TYPE CODE TESTS RESULT OUT OF RANGE REFERENCE UNITS LAB L100.1000 4.4-11.0 K/mm3 Normal WBC 10.7 LAB L100.1200 4.2-5.4 M/mm3 Normal RBC 5.02 LAB L100.1300 12.0-15.0 g/dl Normal HGB 14.8 LAB L100.1400 37-47 % Normal HCT 40.9 LAB L100.1500 81-99 fL Normal MCV 81.5 LAB L100.1600 27.0-32.0 pg Normal MCH 29.5 LAB L100.1700 32-36 g/gl High MCHC 36.2 LAB L100.1810 11.6-14.6 % Normal RDW CV 12.1 LAB L100.1820 35.1-43.9 fl Normal RDW SD 35.7 LAB L100.1900 150-450 K/mm3 Normal PLT 380 LAB L100.2000 6.2-12.0 fl Normal MPV 9.6 LAB L100.2100 47-70 % High NEUT% 77.7 LAB L100.2200 19-41 % Low LY% 13.1 LAB L100.2300 0-10 % Normal MONO% 8.8 LAB L100.2400 0-5 % Normal EO% 0.0 LAB L100.2500 0-1 % Normal BASO% 0.1 LAB L100.2550 0.0-0.9 % Normal IM GRAN % 0.300 Result Comment: IG% - Immature Granulocytes (promyelocytes, myelocytes and metamyelocytes) > 1% indicates that a LEFT SHIFT is Present. LAB L100.2620 2.0-7.7 X10 3/uL High Absolute Neut 8.3 LAB L100.2720 0.83-4.51 X10 3/ul Normal Absolute Lymph 1.40 Performed By: #### L100.0100 #### [facility] [address] [place], [place], [address] BASIC METABOLIC Collected: 06/08/2018 Status: F Source: [place] PROFILE (BMP) 7:02 AM [facility] REPOSITORY TYPE CODE TESTS RESULT OUT OF RANGE REFERENCE UNITS LAB L501.0100 74-106 mg/dL High GLU 148 Result Comment: Fasting Glucose result greater than or equal to 126 mg/dL suggests DIABETES MELLITUS per A.D.A. criteria. Please note revised GLUCOSE reference range effective 2017. LAB L501.1000 7-18 mg/dL Normal BUN 14 LAB L501.1100 0.55-1.02 mg/dL Normal CREAT,SERUM 0.77 Result Comment: The validity of the calculated GFR AND GFRAA in patients over 70 years has not been determined. Clinical correlation is essential. LAB L501.1110 >60 mL/min Normal EST GFR 81 Result Comment: Non- GFR Calc LAB L501.1115 >60 mL/min Normal EST GFR - AA 98 Result Comment: GFR Calc LAB L501.1255 ml/min Normal Estimated CRCL 72.73 LAB L501.1300 10-20 RATIO Normal BUN/CRE 18.1 LAB L501.2200 8.5-10 mg/dL Normal .1 CA 9.2 LAB L501.5300 136-14 mmol/L Low 5 NA 125 LAB L501.5600 3.5-5. mmol/L Normal 1 K 3.8 LAB L501.5900 98-107 mmol/L Low CL 91 LAB L501.6100 21.0-3 mmol/L Normal 2.0 CO2 25.0 LAB L501.6200 5-15 Normal GAP 9 Performed By: #### L500.2500 #### [facility] Laboratory [address] [place], [address] BASIC METABOLIC PANL Collected: 06/07/2018 Status: F Source: [place] 11:47 AM [facility] REPOSITORY TYPE CODE TESTS RESULT OUT OF REFERENCE UNITS RANGE LAB GLU 74-99 mg/dL High Glucose 120 Result Comment: The [place] Diabetes Association (ADA) provides guidance for cutoff values for fasting glucose and random glucose. The ADA defines fasting as no caloric intake for at least 8 hours. Fas ting plasma glucose results between 100 to 125 mg/dL indicate increased risk for diabetes (prediabetes). Fasting plasma glucose results greater than or equal to 126 mg/dL meet the criteria for diagnosis of diabetes. In the absence of unequivocal hyperglycemia, results should be confirmed by repeat testing. In a patient with classic symptoms of hyperglycemia or hyperglycemic crisis, random plasma glucose results greater than or equal to 200 mg/dL meet the criteria for diagnosis of diabetes. Reference: Standards of Medical Care in Diabetes 2016, [place] Diabetes Association. Diabetes Care. 2016.39(Suppl 1). LAB BUN 7-21 mg/dL BUN 15 LAB CRET 0.58-0.96 mg/dL Creatinine 0.63 LAB NA 136-144 mmol/L Sodium Low 127 LAB K 3.7-5.1 mmol/L Potassium 4.0 LAB CL 97-105 mmol/L Chloride Low 89 LAB CO2 22-30 mmol/L CO2 26 LAB AGAP 9-18 mmol/L Anion Gap 12 LAB CA 8.5-10.2 mg/dL Calcium, Total 9.8 LAB GFRAA eGFR- Amer. >60 LAB GFRNAA . eGFR-All Other Races >60 Result Comment: eGFR (Estimated GFR) Units of measure: mL/min/1.73 meters squared eGFR is derived from the reexpressed MDRD Study equation using the following parameters: serum creatinine, age, gender and race. The creatinine assay has been calibrated to be traceable to IDMS. An eGFR <60 mL/min/1.73m2 for >3 months is consistent with chronic kidney disease. Refer to KDOQI guidelines for clinical interpretation. In patients with unstable renal function, e.g. those with acute kidney injury, the eGFR may not accurately reflect actual GFR. Performed By: #### BMP #### [facility] [address] [place], [place] [address] CNOV Observed: 06/07/2018 Status: COMPLETED Source: [place] 11:20 AM [facility] REPOSITORY Office Visit (FAMPWS) ASIA HAWLEY ([id number]) 1960 F Date Time Provider Department 06/07/18 11:20 [facility] During your visit today, we recorded the following information about you: Pulse Respiration Blood pressure Weight 84/minute 16/minute 136/90 76.9 kg Priyanka Smith MD 06/08/2018 9:16 AM Signed TRANSITION CARE MANAGEMENT (TCM) INITIAL CONTACT [facility] ? Provider Action/FYI: 7 day TCM: pt was admitted to [facility] on 06/01/18 for low sodium level. Had generalized fatigue for several days prior to presenting to ER. Denied any change to diet or medications. Admits to nausea and headache, but no other symptoms. Pt CBC was normal, Sodium decreased to 126, chloride 93. CXR normal. Pt was discharged on 06/05/18 with fluid restriction of 1500 mls and started on Sodium chloride 1 gram TID. She was told to hold Prilosec as it was believed that might be causing the low sodium levels. ? Spoke with pt 06/06/18, she states she is feeling better, some muscle weakness but stated that she was in bed for 4 days. ? ? Initial contact with patient post discharge, spoke to patient on Wednesday06/06/18. Patient identified by name and . ? TRANSITION CARE MANAGEMENT INITIAL OUTREACH DOCUMENTATION: Date of Outreach: 06/06/2018 Outreach Attempt 1: Contact Made Date of Discharge 06/05/2018 Some recent data might be hidden ? ? SUMMARY: -Pt discharged from [facility] on 06/05/18. -Admitted for: Hyponatremia (Acute) ? Do you have a hospital follow up appointment with your PCP? Appointment on 06/07/18 with PCP. Yes. Remind patient of appointment date, time, and location. If not within 14 calendar days of discharge - please reschedule accordingly. ? MEDICATIONS: Many patients have questions or concerns about their medications once they are home. Were you prescribed any new medications? If yes, what are those medications? Sodium Chloride 1 mg TID ? Were you told to hold any medications? No Were any of your medications discontinued? Yes, Prilosec ? Do you have any questions about getting or taking your medications? No ? Your discharge instructions/After visit Summary (AVS) are important in guiding you through the recovery process. Is there anything I might help you understand? No ? Do you have all the necessary equipment and supplies at home? Yes ? Medical records from recent hospitalization: Placed for provider to review 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 Patient presents with: Transition Of Care: [facility] - 7 day, [facility] d/c 06/05/18 HPI Asia Hawley is a 58 year old female who presents here today for a [facility] follow up. Pt here today for a [facility] admission due to low sodium levels. Pt was in the office on 06/01/18 for an OV, then recommended to seek care in the ER and be admitted to receive IV fluids. Pt here today with her mother today. Hyponatremia - Pt today states that she's doing less then 50% better. Still has weakness, shaking and not able to sleep more then 2-3 hours per night. Unable to fall asleep once waking up or nap during the day. She currently is using Melatonin 3 mg 2 at bedtime, with waking up. Was put on a fluid restriction from hospital. Was discontinued of PPI and started on Sodium 1 gram 1 tab po TID for 20 days. Pt has mother stay with her last night due to feeling very weak. Past medical history, appointments, medications, allergies reviewed. Previous Medical History PAST MEDICAL HISTORY Diagnosis Date - Abnormal Papanicolaou smear of vagina and vaginal HPV - Diverticulitis of sigmoid colon 12/07/2009 ACUTE - Diverticulosis of colon (without mention of hemorrhage) - GERD (gastroesophageal reflux disease) 10/01/2017 - Hives - Intramural leiomyoma of uterus - Rectal bleed 09/05/14 - Unspecified hypothyroidism Previous Surgical History PAST SURGICAL HISTORY Procedure Laterality Date - CERVIX UTERI CAUTER CRYOCAUTER 1999 - COLONOSCOP W/ OR W/O [facility] SPEC 04/10/09 - COLONOSCOP W/ OR W/O [facility] SPEC 09/05/14 Repeat 2024 - COLONOSCOP W/ OR W/O [facility] SPEC 12/22/2017 Colonoscopy - COLPOSCOPY (VAGINOSCOPY) Multiple starting 1995 Colposcopy - LAPAROSCOPIC HEMICOLECTOMY 12/07/2009 diverticulitis - LIGATE FALLOPIAN TUBE Tubal ligation - LX PARTIAL COLECTOMY 12/23/2017 [facility] lap lysis of adhesions, left oopherectomy, right salpinoopherectomy, left salpingectomy, redo lap sigmoid colectomy w/ressection, lap mobilization of splenic flexure, lap appendectomy - PAST SURGICAL HISTORY OF 10/2008 T9-L1 fusion, Dr. Lemon - PAST SURGICAL HISTORY OF 10/24/2009 Removed T9-L1, 2 rods and 8 screws, Dr Lemon - REMOVAL GALLBLADDER Cholecystectomy - REPAIR INTERCARP/CARP-METACARP JT Right 10/13/2017 Right thumb CMC arthroplasty with LRTI Family History FAMILY HISTORY Problem Relation Age of Onset - Hypertension Mother - Thyroid Mother - Heart Father - Hypertension Father - Heart Maternal Grandmother - Stroke Maternal Grandmother - Cancer Maternal Grandmother COLON - Cancer Paternal Grandmother STOMACH Patient Allergies ALLERGIES Allergen Reactions - Environmental [Othe* ? what=congestion - Hay Fever [Seasonal* - Zyrtec [Cetirizine * Itching Current Medications Current Outpatient Prescriptions on File Prior to Visit: aspirin 81 mg chewable tablet Take 1 tablet by mouth once daily. levothyroxine (SYNTHROID) 75 mcg tablet TAKE 1 TABLET ONCE DAILY ON AN EMPTY STOMACH FOR THYROID acetaminophen (TYLENOL) 325 mg cap Take by mouth as needed. promethazine (PHENERGAN) 12.5 mg tablet Take 1 tablet by mouth every 6 hours as needed. multivitamins(DAILY MULTIVITAMIN TAB) Take one(1) tablet daily. omeprazole (PRILOSEC) 20 mg capsule Take 1 capsule by mouth daily before breakfast. 1/2 hr before meal. No current facility-administered medications on file prior to visit. Social History Social History Marital status: Spouse name: Years of education: Number of children: 2 Occupational History Occupation Employer Comment [employer] Social History Main Topics Smoking status: Never Smoker Smokeless tobacco: Never Used Comment: No one in household smokes Alcohol use: Yes Comment: Rarely Drug use: No Sexual activity: Yes Partners with: Male control/protection: Tubal Ligation EXAM: BP 136/90 (BP Site: Left Arm, BP Position: Sitting, BP Cuff Size: Regular Adult) Pulse 84 Resp 16 Wt 76.9 kg (169 lb 9.6 oz) LMP 01/07/2011 BMI 28.60 kg/m? General Appearance: Well appearing, alert, in no acute distress, well-hydrated, well nourished.. Lungs: lungs clear to auscultation. No wheezing, rhonchi, rales. Heart: RRR without murmur, gallop, or rubs. No ectopy. Health Maintenance List LIPID SCREEN due on 12/04/2016 INFLUENZA(1) due on 01/15/2018 MAMMOGRAM due on 12/06/2018 ANNUAL PCP TEAM CHRONIC DISEASE VISIT due on 06/01/2019 DTAP,TDAP,TD(2 - Td) due on 04/29/2020 DIABETES SCREEN due on 05/30/2021 PAP EVERY 5 YEARS due on 11/25/2022 HPV EVERY 5 YEARS due on 11/25/2022 COLORECTAL CANCER SCREENING,SEE MODIFIER due on 12/23/2027 HEPATITIS C SCREENING Completed Data reviewed [facility] records ASSESSMENT/PLAN: 1. Hospital discharge follow-up - ICD9: V67.59, ICD10: Z09 (primary diagnosis) - Complete labs today to check sodium level 2. Hyponatremia - ICD9: 276.1, ICD10: E87.1 - Checks labs Check labs today, once receive results will setup an appt. I agree with the 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, ROS, and Past Histories independently gathered by the clinical legal support specialist and the remaining scribed note accurately describes my personal service to the patient. Priyanka Smith MD The documentation for this note was completed by Tess Persaud Ma acting as scribe for Priyanka Smith MD. June 07, 2018 11:26 AM. Referring Provider: SELF [[id number]] Allergies As of Date: 06/07/2018 Noted Allergy Reaction environmental [Other] 12/28/2006 Comments: ? what=congestion HAY FEVER (SEASONAL ALLERGIES) 08/13/2009 ZYRTEC (CETIRIZINE HCL) 08/06/2014 9 - Itching Date Reviewed: 06/07/2018 Reviewed by: Tess Persaud Ma - Fully Assessed Reason for Visit: Transition Of Care [4074] Cmt: TCM - 7 day, [facility] d/c 06/05/18 Reason For Visit History Recorded Primary Visit Diagnosis:Hospital discharge follow-up [Z09] Other Visit Diagnosis:Hyponatremia [E87.1] Order(s):BASIC METABOLIC PNL [SQBMP] Order #: [id number] FUTURE Prescriptions as of 06/07/2018 Sig: SODIUM CHLORIDE 1 GRAM TABLET THREE TIMES A DAY ASPIRIN 81 MG CHEWABLE TABLET Take 1 tablet by mouth once d* LEVOTHYROXINE 75 MCG TABLET TAKE 1 TABLET ONCE DAILY ON A* ACETAMINOPHEN 325 MG CAPSULE Take by mouth as needed. PROMETHAZINE 12.5 MG TABLET Take 1 tablet by mouth every * * DAILY MULTIVITAMIN TABLET Take one(1) tablet daily. OMEPRAZOLE 20 MG CAPSULE,CLARK* Take 1 capsule by mouth daily* Problem List As Of Date 06/07/2018 Noted Resolved Hypothyroidism [E03.9] Abnormal Papanicolaou Smear of Vagina and Vagin* 02/06/2010 Dyspareunia [NKH3250] INVALID FOR*02/06/2010 Fx Sacrum/Coccyx-Closed [S32.10XA, S32.2XXA] INVALID FOR*02/06/2010 Fx Dorsal Vertebra-Closed [S22.009A] INVALID FOR*02/06/2010 Diverticulosis [K57.90] INVALID FOR* Calcaneal spur [M77.30] INVALID FOR*10/01/2017 Hives [L50.9] 10/01/2017 Chronic urticaria [L50.8] INVALID FOR*10/01/2017 Open wound(s) (multiple) of unspecified site(s)*INVALID FOR*10/01/2017 Primary osteoarthritis of first carpometacarpal*INVALID FOR* More... Obesity, Class I, BMI 30-34.9 E66.9 [E66.9] INVALID FOR* GERD (gastroesophageal reflux disease) [K21.9] INVALID FOR* Disposition: Return if symptoms worsen or fail to improve. Follow-up and Disposition History Recorded Encounter Status:Closed by PRIYANKA SMITH MD on 06/08/18 PROGRESS Observed: 06/07/2018 Status: COMPLETED Source: [place] 11:08 AM [facility] REPOSITORY HNO ID: [id number] Author: Priyanka Smith Service: (none) Author Type: Physician Type: Progress Notes Filed: 06/08/2018 9:16 AM Note Text: TRANSITION CARE MANAGEMENT (TCM) INITIAL CONTACT [facility] ? Provider Action/FYI: 7 day TCM: pt was admitted to [facility] on 06/01/18 for low sodium level. Had generalized fatigue for several days prior to presenting to ER. Denied any change to diet or medications. Admits to nausea and headache, but no other symptoms. Pt CBC was normal, Sodium decreased to 126, chloride 93. CXR normal. Pt was discharged on 06/05/18 with fluid restriction of 1500 mls and started on Sodium chloride 1 gram TID. She was told to hold Prilosec as it was believed that might be causing the low sodium levels. ? Spoke with pt 06/06/18, she states she is feeling better, some muscle weakness but stated that she was in bed for 4 days. ? ? Initial contact with patient post discharge, spoke to patient on Wednesday06/06/18. Patient identified by name and . ? TRANSITION CARE MANAGEMENT INITIAL OUTREACH DOCUMENTATION: Date of Outreach: 06/06/2018 Outreach Attempt 1: Contact Made Date of Discharge 06/05/2018 Some recent data might be hidden ? ? SUMMARY: -Pt discharged from [facility] on 06/05/18. -Admitted for: Hyponatremia (Acute) ? Do you have a hospital follow up appointment with your PCP? Appointment on 06/07/18 with PCP. Yes. Remind patient of appointment date, time, and location. If not within 14 calendar days of discharge - please reschedule accordingly. ? MEDICATIONS: Many patients have questions or concerns about their medications once they are home. Were you prescribed any new medications? If yes, what are those medications? Sodium Chloride 1 mg TID ? Were you told to hold any medications? No Were any of your medications discontinued? Yes, Prilosec ? Do you have any questions about getting or taking your medications? No ? Your discharge instructions/After visit Summary (AVS) are important in guiding you through the recovery process. Is there anything I might help you understand? No ? Do you have all the necessary equipment and supplies at home? Yes ? Medical records from recent hospitalization: Placed for provider to review 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 Patient presents with: Transition Of Care: TCM - 7 day, [facility] d/c 06/05/18 HPI Asia Hawley is a 58 year old female who presents here today for a [facility] follow up. Pt here today for a [facility] admission due to low sodium levels. Pt was in the office on 06/01/18 for an OV, then recommended to seek care in the ER and be admitted to receive IV fluids. Pt here today with her mother today. Hyponatremia - Pt today states that she's doing less then 50% better. Still has weakness, shaking and not able to sleep more then 2-3 hours per night. Unable to fall asleep once waking up or nap during the day. She currently is using Melatonin 3 mg 2 at bedtime, with waking up. Was put on a fluid restriction from hospital. Was discontinued of PPI and started on Sodium 1 gram 1 tab po TID for 20 days. Pt has mother stay with her last night due to feeling very weak. Past medical history, appointments, medications, allergies reviewed. Previous Medical History PAST MEDICAL HISTORY Diagnosis Date - Abnormal Papanicolaou smear of vagina and vaginal HPV - Diverticulitis of sigmoid colon 12/07/2009 ACUTE - Diverticulosis of colon (without mention of hemorrhage) - GERD (gastroesophageal reflux disease) 10/01/2017 - Hives - Intramural leiomyoma of uterus - Rectal bleed 09/05/14 - Unspecified hypothyroidism Previous Surgical History PAST SURGICAL HISTORY Procedure Laterality Date - CERVIX UTERI CAUTER CRYOCAUTER 1999 - COLONOSCOP W/ OR W/O [facility] SPEC 04/10/09 - COLONOSCOP W/ OR W/O [facility] SPEC 09/05/14 Repeat 2024 - COLONOSCOP W/ OR W/O [facility] SPEC 12/22/2017 Colonoscopy - COLPOSCOPY (VAGINOSCOPY) Multiple starting 1995 Colposcopy - LAPAROSCOPIC HEMICOLECTOMY 12/07/2009 diverticulitis - LIGATE FALLOPIAN TUBE Tubal ligation - LX PARTIAL COLECTOMY 12/23/2017 [facility] lap lysis of adhesions, left oopherectomy, right salpinoopherectomy, left salpingectomy, redo lap sigmoid colectomy w/ressection, lap mobilization of splenic flexure, lap appendectomy - PAST SURGICAL HISTORY OF 10/2008 T9-L1 fusion, Dr. Lemon - PAST SURGICAL HISTORY OF 10/24/2009 Removed T9-L1, 2 rods and 8 screws, Dr Lemon - REMOVAL GALLBLADDER Cholecystectomy - REPAIR INTERCARP/CARP-METACARP JT Right 10/13/2017 Right thumb CMC arthroplasty with LRTI Family History FAMILY HISTORY Problem Relation Age of Onset - Hypertension Mother - Thyroid Mother - Heart Father - Hypertension Father - Heart Maternal Grandmother - Stroke Maternal Grandmother - Cancer Maternal Grandmother COLON - Cancer Paternal Grandmother STOMACH Patient Allergies ALLERGIES Allergen Reactions - Environmental [Othe* ? what=congestion - Hay Fever [Seasonal* - Zyrtec [Cetirizine * Itching Current Medications Current Outpatient Prescriptions on File Prior to Visit: aspirin 81 mg chewable tablet Take 1 tablet by mouth once daily. levothyroxine (SYNTHROID) 75 mcg tablet TAKE 1 TABLET ONCE DAILY ON AN EMPTY STOMACH FOR THYROID acetaminophen (TYLENOL) 325 mg cap Take by mouth as needed. promethazine (PHENERGAN) 12.5 mg tablet Take 1 tablet by mouth every 6 hours as needed. multivitamins(DAILY MULTIVITAMIN TAB) Take one(1) tablet daily. omeprazole (PRILOSEC) 20 mg capsule Take 1 capsule by mouth daily before breakfast. 1/2 hr before meal. No current facility-administered medications on file prior to visit. Social History Social History Marital status: Spouse name: Years of education: Number of children: 2 Occupational History Occupation Employer Comment [employer] Social History Main Topics Smoking status: Never Smoker Smokeless tobacco: Never Used Comment: No one in household smokes Alcohol use: Yes Comment: Rarely Drug use: No Sexual activity: Yes Partners with: Male control/protection: Tubal Ligation EXAM: BP 136/90 (BP Site: Left Arm, BP Position: Sitting, BP Cuff Size: Regular Adult) Pulse 84 Resp 16 Wt 76.9 kg (169 lb 9.6 oz) LMP 01/07/2011 BMI 28.60 kg/m? General Appearance: Well appearing, alert, in no acute distress, well-hydrated, well nourished.. Lungs: lungs clear to auscultation. No wheezing, rhonchi, rales. Heart: RRR without murmur, gallop, or rubs. No ectopy. Health Maintenance List LIPID SCREEN due on 12/04/2016 INFLUENZA(1) due on 01/15/2018 MAMMOGRAM due on 12/06/2018 ANNUAL PCP TEAM CHRONIC DISEASE VISIT due on 06/01/2019 DTAP,TDAP,TD(2 - Td) due on 04/29/2020 DIABETES SCREEN due on 05/30/2021 PAP EVERY 5 YEARS due on 11/25/2022 HPV EVERY 5 YEARS due on 11/25/2022 COLORECTAL CANCER SCREENING,SEE MODIFIER due on 12/23/2027 HEPATITIS C SCREENING Completed Data reviewed [facility] records ASSESSMENT/PLAN: 1. Hospital discharge follow-up - ICD9: V67.59, ICD10: Z09 (primary diagnosis) - Complete labs today to check sodium level 2. Hyponatremia - ICD9: 276.1, ICD10: E87.1 - Checks labs Check labs today, once receive results will setup an appt. I agree with the 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, ROS, and Past Histories independently gathered by the clinical legal support specialist and the remaining scribed note accurately describes my personal service to the patient. Priyanka Smith MD The documentation for this note was completed by Tess Persaud Ma acting as scribe for Priyanka Smith MD. June 07, 2018 11:26 AM. PROGRESS Observed: 06/06/2018 Status: COMPLETED Source: [place] 11:45 AM [facility] REPOSITORY HNO ID: [id number] Author: Priyanka Smith Service: (none) Author Type: Physician Type: Progress Notes Filed: 06/06/2018 11:46 AM Note Text: Noted Priyanak Smith MD PROGRESS Observed: 06/06/2018 Status: COMPLETED Source: [place] 9:35 AM [facility] REPOSITORY HNO ID: [id number] Author: Susana Bhardwaj Ma Service: (none) Author Type: (none) Type: Progress Notes Filed: 06/06/2018 11:46 AM Note Text: TRANSITION CARE MANAGEMENT (TCM) INITIAL CONTACT [facility] Provider Action/FYI: 7 day TCM: pt was admitted to [facility] on 06/01/18 for low sodium level. Had generalized fatigue for several days prior to presenting to ER. Denied any change to diet or medications. Admits to nausea and headache, but no other symptoms. Pt CBC was normal, Sodium decreased to 126, chloride 93. CXR normal. Pt was discharged on 06/05/18 with fluid restriction of 1500 mls and started on Sodium chloride 1 gram TID. She was told to hold Prilosec as it was believed that might be causing the low sodium levels. Spoke with pt 06/06/18, she states she is feeling better, some muscle weakness but stated that she was in bed for 4 days. Initial contact with patient post discharge, spoke to patient on Wednesday06/06/18. Patient identified by name and . TRANSITION CARE MANAGEMENT INITIAL OUTREACH DOCUMENTATION: Date of Outreach: 06/06/2018 Outreach Attempt 1: Contact Made Date of Discharge 06/05/2018 Some recent data might be hidden SUMMARY: -Pt discharged from [facility] on 06/05/18. -Admitted for: Hyponatremia (Acute) Do you have a hospital follow up appointment with your PCP? Appointment on 06/07/18 with PCP. Yes. Remind patient of appointment date, time, and location. If not within 14 calendar days of discharge - please reschedule accordingly. MEDICATIONS: Many patients have questions or concerns about their medications once they are home. Were you prescribed any new medications? If yes, what are those medications? Sodium Chloride 1 mg TID Were you told to hold any medications? No Were any of your medications discontinued? Yes, Prilosec Do you have any questions about getting or taking your medications? No Your discharge instructions/After visit Summary (AVS) are important in guiding you through the recovery process. Is there anything I might help you understand? No Do you have all the necessary equipment and supplies at home? Yes Medical records from recent hospitalization: Placed for provider to review CNPTOWILFREDOEAMAURICIO Observed: 06/06/2018 Status: COMPLETED Source: [place] 12:00 AM [facility] REPOSITORY Patient Outreach ([facility]AMP[facility]) ASIA HAWLEY ([id number]) 1960 F Date Time Provider Department 06/06/18 PRIYANKA SMITH [facility] During your visit today, we recorded the following information about you: Susana Bhardwaj Ma 06/06/2018 11:46 AM Signed TRANSITION CARE MANAGEMENT (TCM) INITIAL CONTACT [facility] Provider Action/FYI: 7 day TCM: pt was admitted to [facility] on 06/01/18 for low sodium level. Had generalized fatigue for several days prior to presenting to ER. Denied any change to diet or medications. Admits to nausea and headache, but no other symptoms. Pt CBC was normal, Sodium decreased to 126, chloride 93. CXR normal. Pt was discharged on 06/05/18 with fluid restriction of 1500 mls and started on Sodium chloride 1 gram TID. She was told to hold Prilosec as it was believed that might be causing the low sodium levels. Spoke with pt 06/06/18, she states she is feeling better, some muscle weakness but stated that she was in bed for 4 days. Initial contact with patient post discharge, spoke to patient on Wednesday06/06/18. Patient identified by name and . TRANSITION CARE MANAGEMENT INITIAL OUTREACH DOCUMENTATION: Date of Outreach: 06/06/2018 Outreach Attempt 1: Contact Made Date of Discharge 06/05/2018 Some recent data might be hidden SUMMARY: -Pt discharged from [facility] on 06/05/18. -Admitted for: Hyponatremia (Acute) Do you have a hospital follow up appointment with your PCP? Appointment on 06/07/18 with PCP. Yes. Remind patient of appointment date, time, and location. If not within 14 calendar days of discharge - please reschedule accordingly. MEDICATIONS: Many patients have questions or concerns about their medications once they are home. Were you prescribed any new medications? If yes, what are those medications? Sodium Chloride 1 mg TID Were you told to hold any medications? No Were any of your medications discontinued? Yes, Prilosec Do you have any questions about getting or taking your medications? No Your discharge instructions/After visit Summary (AVS) are important in guiding you through the recovery process. Is there anything I might help you understand? No Do you have all the necessary equipment and supplies at home? Yes Medical records from recent hospitalization: Placed for provider to review Priyanka Smith MD 06/06/2018 11:46 AM Signed Noted Priyanka Smith MD Allergies As of Date: 06/06/2018 Noted Allergy Reaction environmental [Other] 12/28/2006 Comments: ? what=congestion HAY FEVER (SEASONAL ALLERGIES) 08/13/2009 ZYRTEC (CETIRIZINE HCL) 08/06/2014 9 - Itching Date Reviewed: 06/01/2018 Reviewed by: Tess Persaud Ma - Fully Assessed Reason for Visit: Transition Of Care [4074] Order(s):aspirin 81 mg chewable tabletTake 1 tablet by mouth once daily.Disp: Rfl: Prescriptions as of 06/06/2018 Sig: OMEPRAZOLE 20 MG CAPSULE,CLARK* Take 1 capsule by mouth daily* LEVOTHYROXINE 75 MCG TABLET TAKE 1 TABLET ONCE DAILY ON A* ACETAMINOPHEN 325 MG CAPSULE Take by mouth as needed. PROMETHAZINE 12.5 MG TABLET Take 1 tablet by mouth every * * DAILY MULTIVITAMIN TABLET Take one(1) tablet daily. ASPIRIN 81 MG CHEWABLE TABLET Take 1 tablet by mouth once d* Problem List As Of Date 06/06/2018 Noted Resolved Hypothyroidism [E03.9] Abnormal Papanicolaou Smear of Vagina and Vagin* 02/06/2010 Dyspareunia [DKP0250] INVALID FOR*02/06/2010 Fx Sacrum/Coccyx-Closed [S32.10XA, S32.2XXA] INVALID FOR*02/06/2010 Fx Dorsal Vertebra-Closed [S22.009A] INVALID FOR*02/06/2010 Diverticulosis [K57.90] INVALID FOR* Calcaneal spur [M77.30] INVALID FOR*10/01/2017 Hives [L50.9] 10/01/2017 Chronic urticaria [L50.8] INVALID FOR*10/01/2017 Open wound(s) (multiple) of unspecified site(s)*INVALID FOR*10/01/2017 Primary osteoarthritis of first carpometacarpal*INVALID FOR* More... Obesity, Class I, BMI 30-34.9 E66.9 [E66.9] INVALID FOR* GERD (gastroesophageal reflux disease) [K21.9] INVALID FOR* Prescriptions ordered this encounter Disp Refills Start End ASPIRIN 81 MG CHEWABLE TABLET 06/06/2018 Class: OTC Route: ORAL Sig: Take 1 tablet by mouth once daily. Encounter Status:Closed by PRIYANKA SMITH MD on 06/06/18 DISCHARGE SUMMARY Observed: 06/05/2018 Status: F Source: [place] 9:10 AM [facility] Medical Records Department [address] [place] [id number] Discharge Summary 06/05/18906 MR#: [id number] Acct: [id number] Name: ASIA HAWLEY Rep #: [id number] : 1960 58 From: Jordan Myles MD PCP: Priyanka Smith MD Status: ADM IN Y Location: [facility] [id number] Discharge Date and Diagnosis - Problem List Patient Problems: Active and Suspected Problems Hyponatremia (Acute) Date of Admission: 06/01/17 Date of Discharge: 06/05/18 - Primary Discharge Diagnosis Active and Suspected Problems Hyponatremia (Acute) - Secondary Discharge Diagnosis Chronic Problems History of ureter stent (Chronic) Hypothyroid (Chronic) GERD (gastroesophageal reflux disease) (Chronic) Diverticulitis (Chronic) Hospital Course and Treatment Summary of Care Provided: Patient is a 58-year-old lady admitted with intractable nausea associated with significant fatigue. Patient had been diagnosed with hyponatremia by her PCP and was subsequently sent to the ED from where she was admitted to regular nursing floor for subsequent management 1. 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 Patient admitted to regular nursing floor diagnosis confirmed with urine electrolyte studies. Patient also had significant nausea on admission which could have contributed to the SIADH however patient will need to undergo age-related cancer screening when stable by PCP. With patient sodium level dropping back did discontinue IV fluid placed on fluid restriction and consultation placed to nephrology. Patient was seen by Dr. Blake; Case was discussed with him. Did review his recommendation.. Patient was discharged home once sodium level came up to 129. She had been prescribed sodium chloride tablets prescription written on discharge. Also did review patient home medications and her ibuprofen as well as omeprazole (both PPI and NSAIDs known to cause SIADH) discontinued on discharge this was discussed with patient 2. Hypothyroidism-patient is on levothyroxine home dose continued 3. GERD on PPI 4. DVT prophylaxis [place] Lovenox Patient Problems: Active and Suspected Problems Hyponatremia (Acute) Objective: GENERAL: cooperative HEENT: Atraumatic; moist oral mucosa EYES; Anicteric, Normal Conjunctiva NECK; supple, normal thyroid, no distended JVD. RESPIRATORY: Diminished to auscultation bilaterally, CARDIOVASCULAR: Regular S1 S2, no audible murmurs GI: soft, non-tender, normoactive bowel sounds, : No Renal angle tenderness; EXTREMITIES: No edema, no clubbing, no cyanosis. MUSCULOSKELETAL: No Joint Tenderness; no muscle waisting NEURO: Awake; no lateralizing signs. SKIN: No Rash - Physical Exam Vital Signs Temp Pulse Resp BP Pulse Ox 98.5 F 89 16 125/92 H 100 06/05/18 07:40 06/05/18 07:40 06/05/18 07:40 06/05/18 07:40 06/05/18 07:40 Oxygen Delivery Method Room Air Weight: 76.6 kg Body Mass Index (BMI) 27.2 Intake and Output for Last 24 Hours Intake Total 2725 / 2725 1195 / 1195 200 / 200 Output Total 4900 / 4900 2500 / 2500 Balance -2175 / -2175 -1305 / -1305 200 / 200 Microbiology Past 72 Hours 06/01/18 20:38 Respiratory Panel (PCR) - Final Mucosa - Nasopharyngeal Laboratory Tests Past 24 Hrs WBC 7.8 RBC 4.97 Hgb 14.9 Hct 41.4 MCV 83.3 MCH 30.0 MCHC 36.0 RDW 12.4 RDW Differential 37.2 Plt Count 335 Discharge Diet: 8 Cup Fluid Restriciton Discharge Activity: Return to Normal Activity Home Medications: Medications to take at Discharge Aspirin [Aspirin, Baby] 81 mg PO DAILY@0800 11/16/17 Levothyroxine Sodium 75 mcg PO DAILY 06/01/18 Multivit-Min/Iron/Folic/Lutein [Centrum Silver Women Tablet] 1 tab PO DAILY 06/01/18 Sodium Chloride 1 gm PO TID #60 tablet 06/05/18 Following Prescrptions Were Given to Patient: Sodium Chloride 1 gm PO TID #60 tablet Primary Care Physician: Priyanka Smith MD [Primary Care Provider] - Please follow up with your Primary Care Physician in: On 06/07/2018 for BMP check Please Follow Up With: Collins Blake MD When: in 1 week Disposition: Home Minutes spent on discharge:: 35 Patient Condition:: Stable Medical Necessity - Tobacco Use Smoking Status: Never smoker Tobacco Use: Non-smoker Meaningful Use Info Meaningful Use Diagnoses (Choose all that apply): None applicable Code Visit Inpatient E AND M: 10546 Disch Hosp 06/05/18 0910 <Electronically signed by Jordan Myles MD> Date Jordan Myles MD Cosigner Signature (if applicable): Date CC: Jordan Myles MD; Priyanka Smith MD Signed DISCHARGE INSTRUCTION Observed: 06/05/2018 Status: F Source: [place] 9:06 AM [facility] REPOSITORY [facility] Medical Records Department [address] [place] [address] Instructions for Home/Discharge Instructions 06/05/18904 MR#: [id number] Acct: [id number] Name: ASIA HAWLEY Rep #: [id number] : 1960 58 From: Jordan Myles MD PCP: Priyanka Smith MD Status: ADM IN - Discharge Diagnoses Current Active Problems: Current Active and Chronic Problems Hyponatremia (Acute) Hypothyroid (Chronic) GERD (gastroesophageal reflux disease) (Chronic) Diverticulitis (Chronic) You will use the following diet at home:: Fluid restricted (specify 2000 mls, 1500 mls) - 1500 Your food should be the consistency of: Regular Discharge Activity: Return to Normal Activity Allergies/Adverse Reactions: Allergies cetirizine [From [facility]] Allergy (Verified 06/01/18 13:53) Unknown Medications to take at Discharge Aspirin [Aspirin, Baby] 81 mg PO DAILY@0800 11/16/17 Levothyroxine Sodium 75 mcg PO DAILY 06/01/18 Multivit-Min/Iron/Folic/Lutein [Centrum Silver Women Tablet] 1 tab PO DAILY 06/01/18 Sodium Chloride 1 gm PO TID #60 tablet 06/05/18 The following prescriptions were given: Sodium Chloride 1 gm PO TID #60 tablet Primary Care Physician: Priyanka Smith MD [Primary Care Provider] - Please follow up with your Primary Care Physician in: On 06/07/2018 for BMP check Test Results: Test results from this visit will be discussed in further detail at your follow-up appointment, if applicable. Proposed Discharge Date: 06/05/18 06/05/18905 <Electronically signed by Jordan Myles MD> Date Jordan Myles MD CC: Collins Blake MD; Priyanka Smith MD Signed CBC-COMPLETE BLOOD CNT Collected: 06/05/2018 Status: F Source: [place] NO DIFF 5:50 AM [facility] REPOSITORY TYPE CODE TESTS RESULT OUT OF RANGE REFERENCE UNITS LAB L100.1000 4.4-11.0 K/mm3 Normal WBC 7.8 LAB L100.1200 4.2-5.4 M/mm3 Normal RBC 4.97 LAB L100.1300 12.0-15.0 g/dl Normal HGB 14.9 LAB L100.1400 37-47 % Normal HCT 41.4 LAB L100.1500 81-99 fL Normal MCV 83.3 LAB L100.1600 27.0-32.0 pg Normal MCH 30.0 LAB L100.1700 32-36 g/gl Normal MCHC 36.0 LAB L100.1810 11.6-14.6 % Normal RDW CV 12.4 LAB L100.1820 35.1-43.9 fl Normal RDW SD 37.2 LAB L100.1900 150-450 K/mm3 Normal PLT 335 LAB L100.2000 6.2-12.0 fl Normal MPV 9.8 Performed By: #### L100.0500 #### [facility] Laboratory [address] [place], [place], [address] BASIC METABOLIC Collected: 06/05/2018 Status: F Source: [place] PROFILE (BMP) 5:50 AM [facility] REPOSITORY TYPE CODE TESTS RESULT OUT OF RANGE REFERENCE UNITS LAB L501.0100 74-106 mg/dL Normal GLU 96 Result Comment: Please note revised GLUCOSE reference range effective 2017. LAB L501.1000 7-18 mg/dL High BUN 22 LAB L501.1100 0.55-1.02 mg/dL Normal CREAT,SERUM 0.82 Result Comment: The validity of the calculated GFR AND GFRAA in patients over 70 years has not been determined. Clinical correlation is essential. LAB L501.1110 >60 mL/min Normal EST GFR 76 Result Comment: Non- GFR Calc LAB L501.1115 >60 mL/min Normal EST GFR - AA 92 Result Comment: GFR Calc LAB L501.1255 ml/min Normal Estimated CRCL 68.30 LAB L501.1300 10-20 RATIO High BUN/CRE 27.0 LAB L501.2200 8.5-10 mg/dL Normal .1 CA 9.6 LAB L501.5300 136-14 mmol/L Low 5 NA 129 LAB L501.5600 3.5-5. mmol/L Normal 1 K 4.2 LAB L501.5900 98-107 mmol/L Low CL 91 LAB L501.6100 21.0-3 mmol/L Normal 2.0 CO2 30.0 LAB L501.6200 5-15 Normal GAP 8 Performed By: #### L500.2500, L501.5200 #### [facility] Laboratory [address] [place], [address] MAGNESIUM Collected: 06/05/2018 Status: F Source: [place] 5:50 AM [facility] REPOSITORY TYPE CODE TESTS RESULT OUT OF RANGE REFERENCE UNITS LAB L501.5200 1.6-2.6 mg/dL Normal MG 2.2 Performed By: #### L500.2500, L501.5200 #### [facility] Laboratory [address] [place], [address] BASIC METABOLIC Collected: 06/04/2018 Status: F Source: [place] PROFILE (BMP) 10:10 AM [facility] REPOSITORY TYPE CODE TESTS RESULT OUT OF RANGE REFERENCE UNITS LAB L501.0100 74-106 mg/dL High GLU 140 Result Comment: Fasting Glucose result greater than or equal to 126 mg/dL suggests DIABETES MELLITUS per A.D.A. criteria. Please note revised GLUCOSE reference range effective 2017. LAB L501.1000 7-18 mg/dL Normal BUN 14 LAB L501.1100 0.55-1.02 mg/dL Normal CREAT,SERUM 0.67 Result Comment: The validity of the calculated GFR AND GFRAA in patients over 70 years has not been determined. Clinical correlation is essential. LAB L501.1110 >60 mL/min Normal EST GFR 96 Result Comment: Non- GFR Calc LAB L501.1115 >60 mL/min Normal EST GFR - AA 116 Result Comment: GFR Calc LAB L501.1255 ml/min Normal Estimated CRCL 83.59 LAB L501.1300 10-20 RATIO High BUN/CRE 20.9 LAB L501.2200 8.5-10 mg/dL Normal .1 CA 8.8 LAB L501.5300 136-14 mmol/L Low 5 NA 125 LAB L501.5600 3.5-5. mmol/L Low 1 K 3.4 LAB L501.5900 98-107 mmol/L Low CL 90 LAB L501.6100 21.0-3 mmol/L Normal 2.0 CO2 25.0 LAB L501.6200 5-15 Normal GAP 10 Performed By: #### L500.2500 #### [facility] [address] [place], [address] CBC-COMPLETE BLOOD CNT Collected: 06/04/2018 Status: F Source: [place] NO DIFF 6:50 AM [facility] REPOSITORY TYPE CODE TESTS RESULT OUT OF RANGE REFERENCE UNITS LAB L100.1000 4.4-11.0 K/mm3 Normal WBC 7.7 LAB L100.1200 4.2-5.4 M/mm3 Normal RBC 4.61 LAB L100.1300 12.0-15.0 g/dl Normal HGB 13.5 LAB L100.1400 37-47 % Normal HCT 38.5 LAB L100.1500 81-99 fL Normal MCV 83.5 LAB L100.1600 27.0-32.0 pg Normal MCH 29.3 LAB L100.1700 32-36 g/gl Normal MCHC 35.1 LAB L100.1810 11.6-14.6 % Normal RDW CV 12.4 LAB L100.1820 35.1-43.9 fl Normal RDW SD 37.4 LAB L100.1900 150-450 K/mm3 Normal PLT 267 LAB L100.2000 6.2-12.0 fl Normal MPV 9.6 Performed By: #### L100.0500 #### [facility] [address] [place], [place], [address] BASIC METABOLIC Collected: 06/04/2018 Status: F Source: [place] PROFILE (BMP) 6:50 AM [facility] REPOSITORY TYPE CODE TESTS RESULT OUT OF RANGE REFERENCE UNITS LAB L501.0100 74-106 mg/dL Normal GLU 104 Result Comment: Fasting Glucose result from 100 to 125 mg/dL suggests IMPAIRED HOMEOSTASIS per A.D.A. criteria. Please note revised GLUCOSE reference range effective 2017. LAB L501.1000 7-18 mg/dL Normal BUN 14 LAB L501.1100 0.55-1.02 mg/dL Normal CREAT,SERUM 0.64 Result Comment: The validity of the calculated GFR AND GFRAA in patients over 70 years has not been determined. Clinical correlation is essential. LAB L501.1110 >60 mL/min Normal EST GFR 100 Result Comment: Non- GFR Calc LAB L501.1115 >60 mL/min Normal EST GFR - AA 121 Result Comment: GFR Calc LAB L501.1255 ml/min Normal Estimated CRCL 87.51 LAB L501.1300 10-20 RATIO High BUN/CRE 21.8 LAB L501.2200 8.5-10 mg/dL Normal .1 CA 8.9 LAB L501.5300 136-14 mmol/L Low 5 NA 128 LAB L501.5600 3.5-5. mmol/L Normal 1 K 3.9 LAB L501.5900 98-107 mmol/L Low CL 92 LAB L501.6100 21.0-3 mmol/L Normal 2.0 CO2 28.0 LAB L501.6200 5-15 Normal GAP 8 Performed By: #### L500.2500, L501.5200 #### [facility] [address] [place], [address] MAGNESIUM Collected: 06/04/2018 Status: F Source: [place] 6:50 AM [facility] REPOSITORY TYPE CODE TESTS RESULT OUT OF RANGE REFERENCE UNITS LAB L501.5200 1.6-2.6 mg/dL Normal MG 2.0 Performed By: #### L500.2500, L501.5200 #### [facility] Laboratory [address] [place], [address] CONSULTATION Observed: 06/03/2018 Status: F Source: [place] 12:05 PM [facility] REPOSITORY [facility] Medical Records Department [address] [place] [id number] Consultation 06/03/18 1200 MR#: [id number] Acct: [id number] Name: ASIA HAWLEY Rep #: [id number] : 1960 58 From: Collins Blake MD PCP: Priyanka Smith MD Status: ADM CRUZ Y [place] [facility] [place] Problem List (1) Hyponatremia Status: Acute Consultation - Renal PCP/ Referring MD: Requesting physician: [] Primary care physician: Priyanka Smith MD - History of Present Illness History of Present Illness: The patient is a 58 year old F past medical history of hypothyroidism and GERD. Patient presented to the hospital with fatigue for 10 days along with a frontal headache and nausea. Also patient has been complaining of decreased appetite and weight loss. At presentation she was found to have low sodium at 126. Patient was given IV fluid sodium improved to 130 yesterday. But sodium dropped again to 127. IV fluid stopped this morning. Patient denied taking any diuretics. No diarrhea. Not on SSRI. She states she rarely takes NSAIDs at home for headache. Patient states she is eating half of her meals now. Review of system: 12 system review is negative except as mentioned HPI [] - Allergies Allergies: Allergies cetirizine [From [facility]] Allergy (Verified 06/01/18 13:53) Unknown - Current Medications Current Medications: Current Medications Acetaminophen (Tylenol) 650 mg PO Q6H PRN PRN PRN Reason: PAIN Last Admin: 06/02/18 04:20 Dose: 650 mg Aspirin (Aspirin, Baby) 81 mg PO DAILY@0800 [facility] Last Admin: 06/03/18 11:00 Dose: 81 mg Enoxaparin Sodium (Lovenox) 40 mg SC DAILY [facility] Last Admin: 06/03/18 11:00 Dose: 40 mg Levothyroxine Sodium (Synthroid) 75 mcg PO DAILY@0600 [facility] Last Admin: 06/03/18 05:48 Dose: 75 mcg Melatonin (Melatonin) 3 mg PO QHS [facility] Last Admin: 06/02/18 22:02 Dose: 3 mg Nutritional Formula (Lactose Free) (Ensure Enlive) 120 ml PO 4X/DAY [facility] Last Admin: 06/03/18 10:52 Dose: Not Given Ondansetron HCl (Zofran Odt) 4 mg PO Q6H PRN PRN PRN Reason: NAUSEA Last Admin: 06/02/18 11:45 Dose: 4 mg Pantoprazole Sodium (Protonix) 20 mg PO QODAY [facility] Last Admin: 06/03/18 11:00 Dose: 20 mg Promethazine HCl (Phenergan) 12.5 mg IM Q4H PRN PRN PRN Reason: NAUSEA/VOMITING Last Admin: 06/02/18 15:20 Dose: 12.5 mg Tramadol HCl (Ultram) 50 mg PO TID PRN PRN PRN Reason: MODERATE PAIN (4-5/10) - Past Medical History Past Medical History (Chronic Problems): Chronic Problems Hypothyroid (Chronic) GERD (gastroesophageal reflux disease) (Chronic) Diverticulitis (Chronic) - Past Surgical History Surgical History: noncontributory - Social History Smoking Status: Never smoker Alcohol: None Drugs: None - Family History Maternal History Items: Hypertension Paternal History Items: Heart Disease, Hypertension Patient Problems: Active and Suspected Problems Hyponatremia (Acute) - Physical Exam General: Alert, Oriented x3 HEENT: Atraumatic Oral: Moist Mucosa, No Gingival or Mucosal Lesions/ Ulcerations Neck: Supple, No JVD Lungs: Clear to auscultation, Normal air movement, No rhonchi, No wheeze Cardiovascular: Regular rate, Regular Rhythm, Normal S1, Normal S2 Abdomen: Bowel Sounds Present, Soft, Non Tender Extremities: No clubbing, No cyanosis, No edema Skin: No rashes Musculoskeletal: No Tenderness to Palpation of Joints or Extremities Lymphatic: No Cervical, Supraclavicular, or Inguinal Adenopathy Neurological: Cranial nerves II-XII grossly intact, Neuro grossly intact Psych/Mental Status: Normal Affect Vital Signs Temp Pulse Resp BP Pulse Ox 97.8 F 83 18 146/94 H 100 06/03/18 10:00 06/03/18 10:00 06/03/18 10:00 06/03/18 10:00 06/03/18 10:00 Oxygen Delivery Method Room Air Weight: 76.6 kg Body Mass Index (BMI) 27.2 Intake and Output for Last 24 Hours Intake Total 300 / 300 2463 / 2463 1785 / 1785 Output Total 1200 / 1200 2400 / 2400 Balance 300 / 300 1263 / 1263 -615 / -615 Microbiology Past 72 Hours 06/01/18 20:38 Respiratory Panel (PCR) - Final Mucosa - Nasopharyngeal Laboratory Tests Past 24 Hrs WBC 7.2 RBC 4.38 Hgb 13.0 Hct 36.6 L MCV 83.6 Assessment/Plan All Active Problems History of ureter stent (Acute) Hyponatremia (Acute) 1-normovolemic hyponatremia. New onset. Urine sodium is elevated at 116 and urine osmolality 558. 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 Patient said the mass was not malignant. Patient is not on SSRI. NSAIDs might cause SIADH but patient said she rarely takes NSAIDs. I agree with stopping IV fluids. I will put the patient on fluid restriction 50 ounces daily. No need for 3% sodium chloride. If sodium level is dropping tomorrow, I will start Lasix. Please avoid hydrochlorothiazide. Avoid SSRI. Check sodium level in a.m.. Thank you for the consult. Renal team will continue to follow 06/03/18 1205 <Electronically signed by Collins Blake MD> Date Collins Blake MD Cosigner Signature (if applicable): Date CC: Priyanka Smith MD Signed CBC-COMPLETE BLOOD CNT Collected: 06/03/2018 Status: F Source: [place] NO DIFF 9:00 AM [facility] REPOSITORY TYPE CODE TESTS RESULT OUT OF RANGE REFERENCE UNITS LAB L100.1000 4.4-11.0 K/mm3 Normal WBC 7.2 LAB L100.1200 4.2-5.4 M/mm3 Normal RBC 4.38 LAB L100.1300 12.0-15.0 g/dl Normal HGB 13.0 LAB L100.1400 37-47 % Low HCT 36.6 LAB L100.1500 81-99 fL Normal MCV 83.6 LAB L100.1600 27.0-32.0 pg Normal MCH 29.7 LAB L100.1700 32-36 g/gl Normal MCHC 35.5 LAB L100.1810 11.6-14.6 % Normal RDW CV 12.1 LAB L100.1820 35.1-43.9 fl Normal RDW SD 36.5 LAB L100.1900 150-450 K/mm3 Normal PLT 276 LAB L100.2000 6.2-12.0 fl Normal MPV 9.4 Performed By: #### L100.0500, L500.2500, L501.5200 #### [facility] [address] [place], [address] BASIC METABOLIC Collected: 06/03/2018 Status: F Source: [place] PROFILE (BMP) 9:00 AM [facility] REPOSITORY TYPE CODE TESTS RESULT OUT OF RANGE REFERENCE UNITS LAB L501.0100 74-106 mg/dL High GLU 121 Result Comment: Fasting Glucose result from 100 to 125 mg/dL suggests IMPAIRED HOMEOSTASIS per A.D.A. criteria. Please note revised GLUCOSE reference range effective 2017. LAB L501.1000 7-18 mg/dL Normal BUN 10 LAB L501.1100 0.55-1.02 mg/dL Normal CREAT,SERUM 0.67 Result Comment: The validity of the calculated GFR AND GFRAA in patients over 70 years has not been determined. Clinical correlation is essential. LAB L501.1110 >60 mL/min Normal EST GFR 95 Result Comment: Non- GFR Calc LAB L501.1115 >60 mL/min Normal EST GFR - AA 115 Result Comment: GFR Calc LAB L501.1255 ml/min Normal Estimated CRCL 83.59 LAB L501.1300 10-20 RATIO Normal BUN/CRE 14.9 LAB L501.2200 8.5-10 mg/dL Low .1 CA 8.3 LAB L501.5300 136-14 mmol/L Low 5 NA 127 LAB L501.5600 3.5-5. mmol/L Normal 1 K 3.7 LAB L501.5900 98-107 mmol/L Low CL 94 LAB L501.6100 21.0-3 mmol/L Normal 2.0 CO2 26.0 LAB L501.6200 5-15 Normal GAP 7 Performed By: #### L100.0500, L500.2500, L501.5200 #### [facility] [address] [place], [place], [address] MAGNESIUM Collected: 06/03/2018 Status: F Source: [place] 9:00 AM [facility] REPOSITORY TYPE CODE TESTS RESULT OUT OF RANGE REFERENCE UNITS LAB L501.5200 1.6-2.6 mg/dL Normal MG 1.8 Performed By: #### L100.0500, L500.2500, L501.5200 #### [facility] [address] [place], [address] 12 LEAD ELECTROCARDIOGRAM Observed: 06/02/2018 Status: F Source: [place] 3:42 PM [facility] REPOSITORY [facility] Cardiovascular Services [address] [place] [address] 12 Lead EKG 05/31/18 0932 MR#: [id number] Acct: [id number] Name: ASIA HAWLEY Rep #: [id number] : 1960 58 From: Jacek Barton MD Attending Dr: Status: DEP ER Ordering Dr: Ana Olvera MD Date: 05/31/18 Location: ED Sex: F C Admitted: Test Reason : ABNORMAL LABS Blood Pressure : / mmHG Vent. Rate : 084 BPM Atrial Rate : 084 BPM P-R Int : 144 ms QRS Dur : 084 ms QT Int : 368 ms P-R-T Axes : -08 -04 044 degrees QTc Int : 434 ms Normal sinus rhythm Normal ECG Confirmed by SAMRA BHATT, JACEK ([id number]), visual effects editor ANI ROMERO ([id number]) on 06/02/2018 3:42:03 PM Referred By: RUY Confirmed By:JACEK BARTON MD 06/02/18 1542 Date Jacek Barton MD CC: Ana Olvera MD; Priyanka Smith MD Signed BASIC METABOLIC Collected: 06/02/2018 Status: F Source: [place] PROFILE (BMP) 5:20 AM [facility] REPOSITORY TYPE CODE TESTS RESULT OUT OF RANGE REFERENCE UNITS LAB L501.0100 74-106 mg/dL Normal GLU 106 Result Comment: Fasting Glucose result from 100 to 125 mg/dL suggests IMPAIRED HOMEOSTASIS per A.D.A. criteria. Please note revised GLUCOSE reference range effective 2017. LAB L501.1000 7-18 mg/dL Normal BUN 17 LAB L501.1100 0.55-1.02 mg/dL Normal CREAT,SERUM 0.68 Result Comment: The validity of the calculated GFR AND GFRAA in patients over 70 years has not been determined. Clinical correlation is essential. LAB L501.1110 >60 mL/min Normal EST GFR 94 Result Comment: Non- GFR Calc LAB L501.1115 >60 mL/min Normal EST GFR - AA 114 Result Comment: GFR Calc LAB L501.1255 ml/min Normal Estimated CRCL 82.36 LAB L501.1300 10-20 RATIO High BUN/CRE 25.1 LAB L501.2200 8.5-10 mg/dL Normal .1 CA 8.8 LAB L501.5300 136-14 mmol/L Low 5 NA 130 LAB L501.5600 3.5-5. mmol/L Normal 1 K 4.0 LAB L501.5900 98-107 mmol/L Low CL 95 LAB L501.6100 21.0-3 mmol/L Normal 2.0 CO2 27.0 LAB L501.6200 5-15 Normal GAP 8 Performed By: #### L500.2500 #### [facility] [address] [place], [place], [address] CORTISOL SERUM Collected: 06/02/2018 Status: F Source: [place] 5:20 AM [facility] REPOSITORY TYPE CODE TESTS RESULT OUT OF RANGE REFERENCE UNITS LAB L509.6000 3.09-22.40 ug/dL Normal CORTISOL 13.70 Result Comment: Adult (AM) 4.30 - 22.40 ug/dL Adult (PM) 3.09 - 16.66 ug/dL Performed By: #### L509.6000 #### [facility] [address] [place], [address] EMERGENCY DEPARTMENT Observed: 06/01/2018 Status: F Source: [place] SUMMARY 11:50 PM [facility] REPOSITORY [facility] Medical Records Department [address] [place] [address] Emergency Department Summary 06/01/18 1546 MR#: [id number] Acct: [id number] Name: ASIA HAWLEY Rep #: [id number] : 1960 58 From: Bar Conner MD PCP: Priyanka Smith MD Status: ADM CRUZ - ER Visit Summary Date of Service: 06/01/18 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: Low sodium History of Present Illness: The patient is a 58 F sent by her PCP for hyponatremia. The patient has had generalized fatigue for several days now. She had an evaluation at urgent care and was found to be hyponatremic. She was referred to the emergency department. She was seen yesterday in this emergency department. Her workup was reassuring and she was sent for outpatient follow-up. She saw her PCP today and feels worse. He sent her for reevaluation and hospitalization. Patient denies any history of this in the past. No history of cancer. No history of diabetes. No history of alcoholism. No change in her diet or medications. She does have some nausea and a headache but no other symptoms. No history of seizures. Physical Examination: Afebrile and vital signs unremarkable except for an initial heart rate of 116. Alert and oriented. No acute distress. Heart tachycardic but regular. Lungs clear. Abdomen soft. Skin normal in color. Cranial nerves grossly intact. Normal strength and sensation. Test Results: CBC normal. Sodium has decreased from yesterday to 126, chloride 93. Alkaline phosphatase 125, ALT 88, AST 50. Emergency Department Course and Treatment: Patient's visit from yesterday was reviewed. Her sodium has gone from 127-126. She is feeling worse. I am not sure what is causing her hyponatremia, but she has failed outpatient care and will need hospitalization. Hospitalist was contacted for further care. Treatment Plan: As above Disposition: Admission Impression: 1. Hyponatremia This note was generated with [employer] dictation software. It may contain incorrect words, spelling, and punctuation that were not noted in review of the chart prior to signing ED Disposition - Plan for ED Patient: 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: Abn Labs Referrals: Priyanka Smith MD [Primary Care Provider] - What to do if you have Problems For any increased pain, shortness of breath, bleeding, nausea or vomiting, chest pain, or any unexpected problems, contact your Primary Care Provider. Call [facility] ([phone]) or report to the closest Emergency Room. Call 911 if necessary. 06/01/18 9400 <Electronically signed by Bar Conner MD> Date Bar Conner MD Cosigner Signature (If Indicated): Date CC: Priyanka Smith MD Observed: 06/01/2018 Status: F Source: [place] RESPIRATORY PANEL 8:38 PM [facility] MOLECULAR REPOSITORY RP PANEL ADENOVIRUS Not Detected HUMAN METAPHNEUMO Not Detected INFLUENZA A Not Detected INFLUENZA A (SUBTYPE H1) Not Detected INFLUENZA A (SUBTYPE H3) Not Detected INFLUENZA B Not Detected PARAINFLUENZA 1 Not Detected PARAINFLUENZA 2 Not Detected PARAINFLUENZA 3 Not Detected PARAINFLUENZA 4 Not Detected RHINOVIRUS Not Detected RSV A Not Detected RSV B Not Detected NAAT METHOD Testing was performed using nucleic acid amplification Performed By: #### M100.638 #### [facility] [address] [place], [address] CHEST PA AND LATERAL Observed: 06/01/2018 Status: F Source: [place] 6:02 PM [facility] REPOSITORY [facility] Imaging Services [address] [place] [address] Chest PA and Lateral MR#: [id number] Acct: [id number] Name: AISA HAWLEY Rep #: [id number] : 1960 F 58 From: Pk Kirk DO PCP: Priyanka Smith MD Status: ADM CRUZ Study: Chest PA and Lateral Date of Exam: 06/01/18 Exam# [id number] Ordering Dr: Javier Stoner DO STUDY: X-RAY CHEST REASON FOR EXAM: Female, 58 years old. Cough TECHNIQUE: Frontal and lateral views COMPARISON: May 31, 2018 FINDINGS: The lungs are clear and expanded. There is no demonstrated pleural abnormality. Normal size heart. Normal mediastinum and ahsan. Normal visualized pulmonary arteries. Normal visualized aortic arch and descending thoracic aorta. Mild wedge compression of T12. Normal visualized ribs, clavicles, and shoulders. There is no demonstrated abnormality of the visualized soft tissue structures of the upper abdomen. RAD/Chest PA and Lateral IMPRESSION: No acute pulmonary pathology of the chest. Electronically Signed: Pk Kirk DO at 23:39 EST Tel [phone], Service support , CC: Monica Stoner; Priyanka Smith MD Manager Statistical Programming: Signed HISTORY AND PHYSICAL Observed: 06/01/2018 Status: F Source: [place] EXAM 5:49 PM [facility] REPOSITORY [facility] Medical Records Department [address] [place] [id number] History and Physical 06/01/18 1638 MR#: [id number] Acct: [id number] Name: ASIA HAWLEY Rep #: [id number] : 1960 58 From: Lang EASLEY PCP: Priyanka Smith MD Status: ADM CRUZ Y Location: [place] [address]-1 ADDENDUM by Monica Stoner on 06/01/18 at 1749 Code Visit This patient was seen in conjunction with Lang EASLEY. I have independently interviewed and examined the patient and reviewed pertinent historical, laboratory and other data. Please refer to history and physical note for details of this patient's presentation, findings and recommendations. I have reviewed Lang's note and concur fully with documented findings. In brief, patient is a 58YO female admitted with fatigue and hyponatremia. She has been fatigued for the past 10 days and is also c/o frontal LEBLANC, nausea and decreased appetite. She has a dry cough and has been having sweats at night which is new. Denies sore throat, sinus congestion, ear pain, chest pain, vomiting, diarrhea, abdominal pain, neck pain, neck stiffness, changes in vision. TSH was normal on 05/31/2018. Chest x-ray on 05/31/2018 showed increased markings in the lingular segment of the left upper lobe. She is a lifelong non-smoker. She has lost 12 pounds since the illness began secondary to decreased oral intake. She states that she has been thirsty and urinating a lot recently. She has no history of diabetes mellitus. She denies any visual changes. She denies dysuria. She is afebrile in the emergency room with stable vital signs. All lab was personally reviewed. White blood cell count is normal at 9.7 with 73% neutrophils. Sodium is low at 126 and the chloride is low at 93. BUN is 18 with a creatinine of 0.77 and the BUN creatinine ratio is 23.3. PHYSICAL EXAM: GENERAL: alert, oriented X 3, Cooperative, NAD, her face is very flushed and she feels warm, not diaphoretic. No scleral icterus ORAL: moist mucosa, no mucosal lesions NECK: No JVD, supple, trachea midline, no cervical or supraclavicular adenopathy, no nuchal rigidity, no pain with palpation of the posterior cervical muscles LUNGS: CTA after opening coarse BS's in the upper right and left lobesa, symmetric chest expansion no rales HEART: RRR, Normal S1 and S2, no rub, no gallop, no murmur, no ectopic activity ABDOMEN: soft, NT, ND, BS present, no guarding with palpation, no masses EXTREMITIES: no edema, no cyanosis, no calf tenderness SKIN: No rashes, no breakdown, no jaundice NEUROLOGIC: no focal neurologic deficits PSYCH: appropriate, normal affect, pleasant Assessment: 1. Hyponatremia - differential includes infection, SIADH, Adrenal dysfunction, dehydration with increased BUN/creat ratio, malignancy/paraneoplastic S. I suspect she may have a protracted viral S. 2. Fatigue I have discussed my assessment with Lang and orders have been written. OBSV E AND M: [id number] Initial observation care L3 06/01/18 [id number] <Electronically signed by Javier Stoner DO> Date Javier Stoner DO cc: KAUSHAL Herrera; Monica Stoner; Priyanka Smith MD * Signed Problem List (1) Hyponatremia Status: Acute (2) Hypothyroid Status: Chronic (3) GERD (gastroesophageal reflux disease) Status: Chronic (4) Diverticulitis Status: Chronic History of Present Illness Date of Admission: 06/01/17 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: Fatigue The patient is a 58 year old F with pmhx of hypothyroidism, GERD, and severe diverticulitis with prior colon resections, who presented to the ER with c/o fatigue after being told to come to the ER for persistent hyponatremia. She has been fatigued since the week following new years. She went to the urgent care for this last weekend and was found to be hyponatremic. She was sent to the ER and received IV saline which she states did not help. Today she saw her PCP and was noted to be persistently hyponatremic so was sent back to the ER for admission. She also complains of intermittent severe frontal headaches, frequent urination and increasing nocturia, and tongue numbness. No neck pain. She denies vision and hearing changes. She denies polydipsia and she believes she drink on average of 4 glasses of water per day which is no different than her norm. She denies diarrhea. She has been intermittently nauseous but has not been vomiting. She is not diabetic and does not drink alcohol. Her TSH was recently checked and was normal. She has not had recent head trauma. She does have a cough, no sore throat, or runny nose. She also recently started having hot sensations in the evening. She has no hx of cancer. She does not smoke. 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 Denies: Chills, Fever, Weight Change Eyes: Denies: Blurred vision, Double vision, Vision Change HEENT: Reports: Head Aches. Denies: Hearing Changes, Sinus Congestion, Sinus Drainage Cardiovascular: Denies: Chest Pain, Palpitations Respiratory: Reports: Cough. Denies: Shortness of Breath, Shortness of breath at rest, Sputum production Gastrointestinal: Reports: Nausea. Denies: Abdominal Pain, Diarrhea, Vomiting Genitourinary: Denies: Dysuria Musculoskeletal: Denies: Joint Pain, Joint Tenderness Skin: Denies: Rash, Wounds Neurological: Reports: Headaches, - - tongue numbness. Denies: Focal weakness, Numbness, Tingling Psychiatric: Denies: Anxiety, Depression, Homicidal Ideations, Suicidal Ideations Hematologic/ Lymphatic: Denies: Easy Bruising, Easy Bleeding VTE Information - Inpt Only VTE Present on Admission: No VTE Mechan Device Prophylaxis: None VTE Pharm Prophylaxis ordered?: Yes Patient Problems: Active and Suspected Problems Hyponatremia (Acute) - Physical Exam General: Alert, Oriented x3, Cooperative HEENT: Atraumatic, PERRLA, EOMI, Normocephalic Neck: Supple, No JVD, Negative Carotid Bruits Lungs: Normal air movement, - - course breath sounds Cardiovascular: Regular rate, No murmurs Abdomen: Bowel Sounds Present, Soft, Non Tender Extremities: No edema, Capillary Refill Less than 3 Seconds Skin: No rashes, No breakdown Musculoskeletal: No Tenderness to Palpation of Joints or Extremities Neurological: Cranial nerves II-XII grossly intact Psych/Mental Status: Normal Affect, Appropriate Vital Signs Temp Pulse Resp BP Pulse Ox 97.8 F 94 18 123/87 H 99 06/01/18 13:52 06/01/18 16:10 06/01/18 16:10 06/01/18 16:10 06/01/18 16:10 Oxygen Delivery Method Room Air Weight: 170 lb 10.205 oz Body Mass Index (BMI) 27.5 Laboratory Tests Past 24 Hrs WBC 9.7 RBC 4.87 Hgb 14.4 Hct 40.3 MCV 82.8 Assessment/Plan All Active Problems History of ureter stent (Acute) Hyponatremia (Acute) 1. Hyponatremia - relatively new onset, symptoms began earlier this month marked mainly by fatigue, severe frontal headaches, nausea, tongue numbness, polyuria, nocturia. She denies polydipsia - drinks about 4 glasses of water per day. She appears euvolemic. She is not on diuretics. TSH recently normal. recently in the ER for IV fluids with no improvement. No alcohol use, no diabetes. No hx cancer. -Will check urine/serum osmolality, AM cortisol level, CRP, ESR. Possible SIADH. -Give IV NaCl. -GFR is intact -Consider CT head -no immediate family hx of cancer, never smoked, but regardless. consider paraneoplastic syndrome. Recent ovarian biopsy with cystadenoma BL. -Consider viral syndrome - she has a nonproductive cough. increased markings on CXR. -No meningismus 2. hypothyroid - recent normal tsh, continue synthroid 3. GERD - PPI 4. Hx diverticulitis with recent colon resection. No abdominal symptoms. 5. Elevated liver enzymes - unclear etiology. DVT ppx: lovenox This patient was seen by Lang Herrera PA-C under the supervision of Dr. Stoner. 06/01/18 1720 <Electronically signed by Lang EASLEY> Date Lang EASLEY 06/01/18 173<Electronically signed by Javier Stoner DO> Cosigner Signature: Date (if applicable) Javier Stoner DO CC: KAUSHAL Herrera; Monica Stoner; Priyanka Smith MD Signed URINE SODIUM Collected: 06/01/2018 Status: F Source: [place] 5:23 PM [facility] REPOSITORY Order Comment: Comments: collected at 1723 Send Results To: lab Has pt arrived? Y TYPE CODE TESTS RESULT OUT OF RANGE REFERENCE UNITS LAB L501.5500 Not Establ. mmol/L Normal UR NA 116 Performed By: #### L501.5500 #### [facility] [address] [place], [address] OSMOLALITY, URINE Collected: 06/01/2018 Status: F Source: [place] 5:23 PM [facility] REPOSITORY Order Comment: Comments: collected at 1723 Has pt arrived? Y TYPE CODE TESTS RESULT OUT OF RANGE REFERENCE UNITS LAB L501.7400 mOsm/KG Normal 558 OSMOLALITY,U R Result Comment: OSMOLALITY URINE REFERENCE INTERVALS 24-hour Urine 300 - 900 mOsm/kg Random Urine 50 - 1400 mOsm/kg After 12 Hr fluid restriction >850 mOsm/kg Performed By: #### L501.7400 #### [facility] [address] [place], [address] CBC W/DIFF, AUTOMATED Collected: 06/01/2018 Status: F Source: [place] 2:20 PM [facility] REPOSITORY TYPE CODE TESTS RESULT OUT OF RANGE REFERENCE UNITS LAB L100.1000 4.4-11.0 K/mm3 Normal WBC 9.7 LAB L100.1200 4.2-5.4 M/mm3 Normal RBC 4.87 LAB L100.1300 12.0-15.0 g/dl Normal HGB 14.4 LAB L100.1400 37-47 % Normal HCT 40.3 LAB L100.1500 81-99 fL Normal MCV 82.8 LAB L100.1600 27.0-32.0 pg Normal MCH 29.6 LAB L100.1700 32-36 g/gl Normal MCHC 35.7 LAB L100.1810 11.6-14.6 % Normal RDW CV 12.2 LAB L100.1820 35.1-43.9 fl Normal RDW SD 36.8 LAB L100.1900 150-450 K/mm3 Normal PLT 345 LAB L100.2000 6.2-12.0 fl Normal MPV 9.5 LAB L100.2100 47-70 % High NEUT% 72.7 LAB L100.2200 19-41 % Low LY% 17.0 LAB L100.2300 0-10 % High MONO% 10.1 LAB L100.2400 0-5 % Normal EO% 0.0 LAB L100.2500 0-1 % Normal BASO% 0.0 LAB L100.2550 0.0-0.9 % Normal IM GRAN % 0.200 Result Comment: IG% - Immature Granulocytes (promyelocytes, myelocytes and metamyelocytes) > 1% indicates that a LEFT SHIFT is Present. LAB L100.2620 2.0-7.7 X10 3/uL Normal Absolute Neut 7.0 LAB L100.2720 0.83-4.51 X10 3/ul Normal Absolute Lymph 1.64 Performed By: #### L100.0100 #### [facility] [address] [place], [address] COMPREHENSIVE METABOLIC Collected: 06/01/2018 Status: F Source: [place] [facility] 2:20 PM [facility] REPOSITORY TYPE CODE TESTS RESULT OUT OF RANGE REFERENCE UNITS LAB L501.0100 74-106 mg/dL Normal GLU 101 Result Comment: Fasting Glucose result from 100 to 125 mg/dL suggests IMPAIRED HOMEOSTASIS per A.D.A. criteria. Please note revised GLUCOSE reference range effective 2017. LAB L501.1000 7-18 mg/dL Normal BUN 18 LAB L501.1100 0.55-1.02 mg/dL Normal CREAT,SERUM 0.77 Result Comment: The validity of the calculated GFR AND GFRAA in patients over 70 years has not been determined. Clinical correlation is essential. LAB L501.1110 >60 mL/min Normal EST GFR 81 Result Comment: Non- GFR Calc LAB L501.1115 >60 mL/min Normal EST GFR - AA 98 Result Comment: GFR Calc LAB L501.1255 ml/min Normal Estimated CRCL 72.73 LAB L501.1300 10-20 RATIO High BUN/CRE 23.3 LAB L501.1500 6.4-8. g/dL High 2 T PROT 8.3 LAB L501.1800 3.2-5. g/dL Normal 0 ALB 3.9 LAB L501.1950 2.2-4. g/dL High 2 GLOB 4.4 LAB L501.2000 0.9-2. RATIO Normal 4 A/G 0.9 LAB L501.2200 8.5-10 mg/dL Normal .1 CA 9.1 LAB L501.4100 15-37 U/L High AST 50 LAB L501.4305 45-117 U/L High ALK P 125 LAB L501.4405 13-56 U/L High ALT 88 LAB L501.4600 0.20-1 mg/dL Normal .00 T BILI 0.80 LAB L501.5300 136-14 mmol/L Low 5 NA 126 LAB L501.5600 3.5-5. mmol/L Normal 1 K 3.8 LAB L501.5900 98-107 mmol/L Low CL 93 LAB L501.6100 21.0-3 mmol/L Normal 2.0 CO2 26.0 LAB L501.6200 5-15 Normal GAP 7 Performed By: #### L500.4050 #### [facility] [address] [place], [address] CRP Collected: 06/01/2018 Status: F Source: [place] 2:20 PM [facility] REPOSITORY TYPE CODE TESTS RESULT OUT OF RANGE REFERENCE UNITS LAB L501.6710 0.0-3.0 mg/L Normal < 2.90 C-REACTIVE PROT Result Comment: C-Reactive Protein (CRP) provides useful information for the diagnosis, therapy and monitoring of inflammatory processes and associated diseases. For the evaluation of Relative Risk for Cardiovascular Disease, a High Sensitivity CRP (HSCRP) should be ordered. Performed By: #### L501.6710 #### [facility] [address] [place], [address] ERYTHROCYTE SED RATE Collected: 06/01/2018 Status: F Source: [place] 2:20 PM [facility] REPOSITORY TYPE CODE TESTS RESULT OUT OF RANGE REFERENCE UNITS LAB L102.0000 0-30 mm/hr Normal SED RATE 9 Performed By: #### L101.9900 #### [facility] [address] [place], [address] OSMOLALITY, SERUM Collected: 06/01/2018 Status: F Source: [place] 2:20 PM [facility] REPOSITORY TYPE CODE TESTS RESULT OUT OF RANGE REFERENCE UNITS LAB L501.7300 275-295 mOsm/KG Low 267 OSMOLALITY,S ER Performed By: #### L501.7300 #### [facility] [address] [place], [address] PROGRESS Observed: 06/01/2018 Status: COMPLETED Source: [place] 1:13 PM [facility] REPOSITORY HNO ID: [id number] Author: Priyanka Smith Service: (none) Author Type: Physician Type: Progress Notes Filed: 06/01/2018 1:38 PM Note Text: 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 Patient presents with: Hospital Follow Up: Nausea, weak, unable to sleep. Low sodium HPI Asia Hawley is a 58 year old female who presents here today for a low sodium, nausea, weakness and hospital follow up. Pt here today with her mother. Symptoms started 11 days ago with weakness, nausea, headache and not being able to sleep. Pt reports that she is so weak that she has difficulty sitting upright. Mainly drinking as she's too weak to do anything else. Initial sodium 126, then dropped to 121 - sent to ER where it was 127. She was given one liter of LR in ER. . Wakes up during the night and doesn't sleep well. Had last surgery in December of 2017 and has felt fine since that time. Denies any bowel issues or diarrhea. No problems with urinating and goes often. Past medical history, appointments, medications, allergies reviewed. Previous Medical History PAST MEDICAL HISTORY Diagnosis Date - Abnormal Papanicolaou smear of vagina and vaginal HPV - Diverticulitis of sigmoid colon 12/07/2009 ACUTE - Diverticulosis of colon (without mention of hemorrhage) - GERD (gastroesophageal reflux disease) 10/01/2017 - Hives - Intramural leiomyoma of uterus - Rectal bleed 09/05/14 - Unspecified hypothyroidism Previous Surgical History PAST SURGICAL HISTORY Procedure Laterality Date - CERVIX UTERI CAUTER CRYOCAUTER 1999 - COLONOSCOP W/ OR W/O [facility] SPEC 04/10/09 - COLONOSCOP W/ OR W/O [facility] SPEC 09/05/14 Repeat 2024 - COLONOSCOP W/ OR W/O [facility] SPEC 12/22/2017 Colonoscopy - COLPOSCOPY (VAGINOSCOPY) Multiple starting 1995 Colposcopy - LAPAROSCOPIC HEMICOLECTOMY 12/07/2009 diverticulitis - LIGATE FALLOPIAN TUBE Tubal ligation - LX PARTIAL COLECTOMY 12/23/2017 [facility] lap lysis of adhesions, left oopherectomy, right salpinoopherectomy, left salpingectomy, redo lap sigmoid colectomy w/ressection, lap mobilization of splenic flexure, lap appendectomy - PAST SURGICAL HISTORY OF 10/2008 T9-L1 fusion, Dr. Lemon - PAST SURGICAL HISTORY OF 10/24/2009 Removed T9-L1, 2 rods and 8 screws, Dr Lemon - REMOVAL GALLBLADDER Cholecystectomy - REPAIR INTERCARP/CARP-METACARP JT Right 10/13/2017 Right thumb CMC arthroplasty with LRTI Family History FAMILY HISTORY Problem Relation Age of Onset - Hypertension Mother - Thyroid Mother - Heart Father - Hypertension Father - Heart Maternal Grandmother - Stroke Maternal Grandmother - Cancer Maternal Grandmother COLON - Cancer Paternal Grandmother STOMACH Patient Allergies ALLERGIES Allergen Reactions - Environmental [Othe* ? what=congestion - Hay Fever [Seasonal* - Zyrtec [Cetirizine * Itching Current Medications Current Outpatient Prescriptions on File Prior to Visit: omeprazole (PRILOSEC) 20 mg capsule Take 1 capsule by mouth daily before breakfast. 1/2 hr before meal. levothyroxine (SYNTHROID) 75 mcg tablet TAKE 1 TABLET ONCE DAILY ON AN EMPTY STOMACH FOR THYROID acetaminophen (TYLENOL) 325 mg cap Take by mouth as needed. promethazine (PHENERGAN) 12.5 mg tablet Take 1 tablet by mouth every 6 hours as needed. multivitamins(DAILY MULTIVITAMIN TAB) Take one(1) tablet daily. No current facility-administered medications on file prior to visit. Social History Social History Marital status: Spouse name: Years of education: Number of children: 2 Occupational History Occupation Employer Comment [employer] Social History Main Topics Smoking status: Never Smoker Smokeless tobacco: Never Used Comment: No one in household smokes Alcohol use: Yes Comment: Rarely Drug use: No Sexual activity: Yes Partners with: Male control/protection: Tubal Ligation EXAM: BP 134/88 (BP Site: Left Arm, BP Position: Sitting, BP Cuff Size: Regular Adult) Pulse 96 Resp 16 Wt 77.4 kg (170 lb 9.6 oz) LMP 01/07/2011 BMI 28.77 kg/m? General Appearance: Appearing in OV not feeling well, lying on exam table, alert, in no acute distress, well-hydrated, well nourished. Lungs: lungs clear to auscultation. No wheezing, rhonchi, rales. Heart: RRR without murmur, gallop, or rubs. No ectopy. Abdomen: Normal abdominal exam, Abdomen soft, non-tender. Bowel sounds normal. No masses, organomegaly. Health Maintenance List LIPID SCREEN due on 12/04/2016 INFLUENZA(1) due on 01/15/2018 ANNUAL PCP TEAM CHRONIC DISEASE VISIT due on 11/03/2018 MAMMOGRAM due on 12/06/2018 DTAP,TDAP,TD(2 - Td) due on 04/29/2020 DIABETES SCREEN due on 05/30/2021 PAP EVERY 5 YEARS due on 11/25/2022 HPV EVERY 5 YEARS due on 11/25/2022 COLORECTAL CANCER SCREENING,SEE MODIFIER due on 12/23/2027 HEPATITIS C SCREENING Completed Data reviewed Appointment on 05/30/2018 Component Date Value - Glucose 05/30/2018 108* - BUN 05/30/2018 15 - Creatinine 05/30/2018 0.69 - Sodium 05/30/2018 121* - Potassium 05/30/2018 4.3 - Chloride 05/30/2018 87* - CO2 05/30/2018 24 - Anion Gap 05/30/2018 10 - Calcium 05/30/2018 9.9 - eGFR- 05/30/2018 >60 - eGFR-All Other Races 05/30/2018 >60 - Osmolality, Urine 05/30/2018 566 - Sodium, Urine Random 05/30/2018 78 Appointment on 05/28/2018 Component Date Value - TSH 05/28/2018 2.790 - Free T4 05/28/2018 1.9* - Protein, Total 05/28/2018 8.1* - Albumin 05/28/2018 4.1 - Calcium 05/28/2018 9.9 - Bilirubin, Total 05/28/2018 0.8 - Alkaline Phosphatase 05/28/2018 103 - AST 05/28/2018 63* - Glucose 05/28/2018 86 - BUN 05/28/2018 12 - Creatinine 05/28/2018 0.72 - Sodium 05/28/2018 126* - Potassium 05/28/2018 4.2 - Chloride 05/28/2018 88* - CO2 05/28/2018 27 - Anion Gap 05/28/2018 11 - ALT 05/28/2018 82* - eGFR- 05/28/2018 >60 - eGFR-All Other Races 05/28/2018 >60 - WBC 05/28/2018 8.54 - RBC 05/28/2018 4.90 - Hemoglobin 05/28/2018 14.5 - Hematocrit 05/28/2018 42.3 - MCV 05/28/2018 86.3 - MCH 05/28/2018 29.6 - MCHC 05/28/2018 34.3 - RDW-CV 05/28/2018 12.0 - Platelet Count 05/28/2018 341 - MPV 05/28/2018 10.2 - Absolute nRBC 05/28/2018 <0.01 ASSESSMENT/PLAN: 1. Low sodium levels - ICD9: 276.1, ICD10: E87.1 (primary diagnosis) - With pt reporting symptoms are worse then yesterday. Discussed with pt that treatment of IV fluids needed to improve sodium level. 2. Nausea - ICD9: 787.02, ICD10: R11.0 - Related to sodium level being low 3. Generalized weakness - ICD9: 780.79, ICD10: R53.1 - Due to low sodium 4. Headache, unspecified headache type - ICD9: 784.0, ICD10: R51 - Due to low sodium Pt agree's to go to ER due to worsening symptoms and not feeling well. Called ER to give report. I agree with the 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, ROS, and Past Histories independently gathered by the clinical legal support specialist and the remaining scribed note accurately describes my personal service to the patient. Priyanka Smith MD The documentation for this note was completed by Tess Persaud Ma acting as scribe for Priyanka Smith MD. June 01, 2018 1:13 PM. CNOV Observed: 06/01/2018 Status: COMPLETED Source: [place] 1:00 PM [facility] REPOSITORY Office Visit (FAMPWS) ASIA HAWLEY ([id number]) 1960 F Date Time Provider Department 06/01/18 1:00 PM PRIYANKA SMITH During your visit today, we recorded the following information about you: Temperature Pulse Respiration Blood pressure 98.7 degrees 96/minute 16/minute 134/88 Weight 77.4 kg Priyanka Smith MD 06/01/2018 1:38 PM Signed 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 Patient presents with: Hospital Follow Up: Nausea, weak, unable to sleep. Low sodium HPI Asia Hawley is a 58 year old female who presents here today for a low sodium, nausea, weakness and hospital follow up. Pt here today with her mother. Symptoms started 11 days ago with weakness, nausea, headache and not being able to sleep. Pt reports that she is so weak that she has difficulty sitting upright. Mainly drinking as she's too weak to do anything else. Initial sodium 126, then dropped to 121 - sent to ER where it was 127. She was given one liter of LR in ER. . Wakes up during the night and doesn't sleep well. Had last surgery in December of 2017 and has felt fine since that time. Denies any bowel issues or diarrhea. No problems with urinating and goes often. Past medical history, appointments, medications, allergies reviewed. Previous Medical History PAST MEDICAL HISTORY Diagnosis Date - Abnormal Papanicolaou smear of vagina and vaginal HPV - Diverticulitis of sigmoid colon 12/07/2009 ACUTE - Diverticulosis of colon (without mention of hemorrhage) - GERD (gastroesophageal reflux disease) 10/01/2017 - Hives - Intramural leiomyoma of uterus - Rectal bleed 09/05/14 - Unspecified hypothyroidism Previous Surgical History PAST SURGICAL HISTORY Procedure Laterality Date - CERVIX UTERI CAUTER CRYOCAUTER 1999 - COLONOSCOP W/ OR W/O [facility] SPEC 04/10/09 - COLONOSCOP W/ OR W/O [facility] SPEC 09/05/14 Repeat 2024 - COLONOSCOP W/ OR W/O [facility] SPEC 12/22/2017 Colonoscopy - COLPOSCOPY (VAGINOSCOPY) Multiple starting 1995 Colposcopy - LAPAROSCOPIC HEMICOLECTOMY 12/07/2009 diverticulitis - LIGATE FALLOPIAN TUBE Tubal ligation - LX PARTIAL COLECTOMY 12/23/2017 [facility] lap lysis of adhesions, left oopherectomy, right salpinoopherectomy, left salpingectomy, redo lap sigmoid colectomy w/ressection, lap mobilization of splenic flexure, lap appendectomy - PAST SURGICAL HISTORY OF 10/2008 T9-L1 fusion, Dr. Lemon - PAST SURGICAL HISTORY OF 10/24/2009 Removed T9-L1, 2 rods and 8 screws, Dr Lemon - REMOVAL GALLBLADDER Cholecystectomy - REPAIR INTERCARP/CARP-METACARP JT Right 10/13/2017 Right thumb CMC arthroplasty with LRTI Family History FAMILY HISTORY Problem Relation Age of Onset - Hypertension Mother - Thyroid Mother - Heart Father - Hypertension Father - Heart Maternal Grandmother - Stroke Maternal Grandmother - Cancer Maternal Grandmother COLON - Cancer Paternal Grandmother STOMACH Patient Allergies ALLERGIES Allergen Reactions - Environmental [Othe* ? what=congestion - Hay Fever [Seasonal* - Zyrtec [Cetirizine * Itching Current Medications Current Outpatient Prescriptions on File Prior to Visit: omeprazole (PRILOSEC) 20 mg capsule Take 1 capsule by mouth daily before breakfast. 1/2 hr before meal. levothyroxine (SYNTHROID) 75 mcg tablet TAKE 1 TABLET ONCE DAILY ON AN EMPTY STOMACH FOR THYROID acetaminophen (TYLENOL) 325 mg cap Take by mouth as needed. promethazine (PHENERGAN) 12.5 mg tablet Take 1 tablet by mouth every 6 hours as needed. multivitamins(DAILY MULTIVITAMIN TAB) Take one(1) tablet daily. No current facility-administered medications on file prior to visit. Social History Social History Marital status: Spouse name: Years of education: Number of children: 2 Occupational History Occupation Employer Comment [employer] Social History Main Topics Smoking status: Never Smoker Smokeless tobacco: Never Used Comment: No one in household smokes Alcohol use: Yes Comment: Rarely Drug use: No Sexual activity: Yes Partners with: Male control/protection: Tubal Ligation EXAM: BP 134/88 (BP Site: Left Arm, BP Position: Sitting, BP Cuff Size: Regular Adult) Pulse 96 Resp 16 Wt 77.4 kg (170 lb 9.6 oz) LMP 01/07/2011 BMI 28.77 kg/m? General Appearance: Appearing in OV not feeling well, lying on exam table, alert, in no acute distress, well-hydrated, well nourished. Lungs: lungs clear to auscultation. No wheezing, rhonchi, rales. Heart: RRR without murmur, gallop, or rubs. No ectopy. Abdomen: Normal abdominal exam, Abdomen soft, non-tender. Bowel sounds normal. No masses, organomegaly. Health Maintenance List LIPID SCREEN due on 12/04/2016 INFLUENZA(1) due on 01/15/2018 ANNUAL PCP TEAM CHRONIC DISEASE VISIT due on 11/03/2018 MAMMOGRAM due on 12/06/2018 DTAP,TDAP,TD(2 - Td) due on 04/29/2020 DIABETES SCREEN due on 05/30/2021 PAP EVERY 5 YEARS due on 11/25/2022 HPV EVERY 5 YEARS due on 11/25/2022 COLORECTAL CANCER SCREENING,SEE MODIFIER due on 12/23/2027 HEPATITIS C SCREENING Completed Data reviewed Appointment on 05/30/2018 Component Date Value - Glucose 05/30/2018 108* - BUN 05/30/2018 15 - Creatinine 05/30/2018 0.69 - Sodium 05/30/2018 121* - Potassium 05/30/2018 4.3 - Chloride 05/30/2018 87* - CO2 05/30/2018 24 - Anion Gap 05/30/2018 10 - Calcium 05/30/2018 9.9 - eGFR- 05/30/2018 >60 - eGFR-All Other Races 05/30/2018 >60 - Osmolality, Urine 05/30/2018 566 - Sodium, Urine Random 05/30/2018 78 Appointment on 05/28/2018 Component Date Value - TSH 05/28/2018 2.790 - Free T4 05/28/2018 1.9* - Protein, Total 05/28/2018 8.1* - Albumin 05/28/2018 4.1 - Calcium 05/28/2018 9.9 - Bilirubin, Total 05/28/2018 0.8 - Alkaline Phosphatase 05/28/2018 103 - AST 05/28/2018 63* - Glucose 05/28/2018 86 - BUN 05/28/2018 12 - Creatinine 05/28/2018 0.72 - Sodium 05/28/2018 126* - Potassium 05/28/2018 4.2 - Chloride 05/28/2018 88* - CO2 05/28/2018 27 - Anion Gap 05/28/2018 11 - ALT 05/28/2018 82* - eGFR- 05/28/2018 >60 - eGFR-All Other Races 05/28/2018 >60 - WBC 05/28/2018 8.54 - RBC 05/28/2018 4.90 - Hemoglobin 05/28/2018 14.5 - Hematocrit 05/28/2018 42.3 - MCV 05/28/2018 86.3 - MCH 05/28/2018 29.6 - MCHC 05/28/2018 34.3 - RDW-CV 05/28/2018 12.0 - Platelet Count 05/28/2018 341 - MPV 05/28/2018 10.2 - Absolute nRBC 05/28/2018 <0.01 ASSESSMENT/PLAN: 1. Low sodium levels - ICD9: 276.1, ICD10: E87.1 (primary diagnosis) - With pt reporting symptoms are worse then yesterday. Discussed with pt that treatment of IV fluids needed to improve sodium level. 2. Nausea - ICD9: 787.02, ICD10: R11.0 - Related to sodium level being low 3. Generalized weakness - ICD9: 780.79, ICD10: R53.1 - Due to low sodium 4. Headache, unspecified headache type - ICD9: 784.0, ICD10: R51 - Due to low sodium Pt agree's to go to ER due to worsening symptoms and not feeling well. Called ER to give report. I agree with the 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, ROS, and Past Histories independently gathered by the clinical legal support specialist and the remaining scribed note accurately describes my personal service to the patient. Priyanka Smith MD The documentation for this note was completed by Tess Persaud Ma acting as scribe for Priyanka Smith MD. June 01, 2018 1:13 PM. Referring Provider: SELF [[id number]] Allergies As of Date: 06/01/2018 Noted Allergy Reaction environmental [Other] 12/28/2006 Comments: ? what=congestion HAY FEVER (SEASONAL ALLERGIES) 08/13/2009 ZYRTEC (CETIRIZINE HCL) 08/06/2014 9 - Itching Date Reviewed: 06/01/2018 Reviewed by: Tess Persaud Ma - Fully Assessed Reason for Visit: Hospital Follow Up [177] Cmt: Nausea, weak, unable to sleep. Low sodium Primary Visit Diagnosis:Low sodium levels [E87.1] Other Visit Diagnoses:Nausea [R11.0] Generalized weakness [R53.1] Headache, unspecified headache type [R51] Prescriptions as of 06/01/2018 Sig: OMEPRAZOLE 20 MG CAPSULE,CLARK* Take 1 capsule by mouth daily* LEVOTHYROXINE 75 MCG TABLET TAKE 1 TABLET ONCE DAILY ON A* ACETAMINOPHEN 325 MG CAPSULE Take by mouth as needed. PROMETHAZINE 12.5 MG TABLET Take 1 tablet by mouth every * * DAILY MULTIVITAMIN TABLET Take one(1) tablet daily. Problem List As Of Date 06/01/2018 Noted Resolved Hypothyroidism [E03.9] Abnormal Papanicolaou Smear of Vagina and Vagin* 02/06/2010 Dyspareunia [KSF7884] INVALID FOR*02/06/2010 Fx Sacrum/Coccyx-Closed [S32.10XA, S32.2XXA] INVALID FOR*02/06/2010 Fx Dorsal Vertebra-Closed [S22.009A] INVALID FOR*02/06/2010 Diverticulosis [K57.90] INVALID FOR* Calcaneal spur [M77.30] INVALID FOR*10/01/2017 Hives [L50.9] 10/01/2017 Chronic urticaria [L50.8] INVALID FOR*10/01/2017 Open wound(s) (multiple) of unspecified site(s)*INVALID FOR*10/01/2017 Primary osteoarthritis of first carpometacarpal*INVALID FOR* More... Obesity, Class I, BMI 30-34.9 E66.9 [E66.9] INVALID FOR* GERD (gastroesophageal reflux disease) [K21.9] INVALID FOR* Disposition: Return if symptoms worsen or fail to improve. Follow-up and Disposition History Recorded Encounter Status:Closed by PRIYANKA SMITH MD on 06/01/18 EMERGENCY DEPARTMENT Observed: 05/31/2018 Status: F Source: [place] SUMMARY 5:58 PM [facility] REPOSITORY [facility] Medical Records Department [address] [place] [id number] Emergency Department Summary 05/31/18 0923 MR#: [id number] Acct: [id number] Name: ASIA HAWLEY Rep #: [id number] : 1960 58 From: Ana Olvera MD PCP: Priyanka Smith MD Status: DEP ER - ER Visit Summary Date of Service: 05/31/18 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: Low sodium History of Present Illness: The patient is a 58 F who presents for evaluation of low sodium. Patient states that for the last 2 weeks she has been having a headache and nausea. She has not been sleeping well. She was seen at urgent care 3 days ago and had a sodium of 126. They had her come back yesterday for recheck, and called her this morning to tell her her sodium was 121 and she needed to be seen at the hospital. Patient denies any change in her water intake. No recent medication changes. She has history of hypothyroidism and is on levothyroxine. She denies any coronary artery disease, CHF, history of diabetes or hypertension. She has no history of cancer. Denies alcohol or tobacco use. No fever, chest pain, shortness of breath, abdominal pain, diarrhea, urinary symptoms. She does complain of some gingival sores in her tongue feeling funny. Physical Examination: Vital signs: afebrile, hemodynamically stable, no hypoxia on room air General: well nourished, well developed, in no distress Skin: warm, dry, no rash, no pallor HEENT: normocephalic and atraumatic; PERRL, EOMI, moist mucous membranes Cardiovascular: Tachycardic rate and rhythm without murmurs, no peripheral edema, 2+ pulses all distal extremities Respiratory: No increased work of breathing, lungs are clear to auscultation bilaterally, no rales, rhonchi or wheezing Abdominal: Abdomen is soft, nontender with normoactive bowel sounds, no guarding or rebound, no masses MSK: Moves all extremities, no deformities, normal strength Neuro: Awake and alert, oriented 4. No facial droop, sensation and motor function intact and symmetric Test Results: Abnormal Lab Results WBC RBC Hgb Hct MCV MCH MCHC RDW WBC 7.7 RBC 4.75 Hgb 14.1 Hct 39.4 MCV 82.9 MCH 29.7 MCHC 35.8 Clinical Impression(s) from Imaging Studies Chest X-Ray 05/31/18 09:18 IMPRESSION: Mild degree of increased markings in the lingular segment of the left upper lobe. This may represent either atelectasis and/or early infiltrate. Follow-up is recommended. Electronically Signed: Joaquin Ellington MD at 11:06 EST Tel [phone], Service support , Medications Given Lactated Ringer's () 1,000 mls @ 150 mls/hr IV .Q6H40M [facility] Last Admin: 05/31/18 10:13 Dose: 150 mls/hr Emergency Department Course and Treatment: Labs were rechecked. Patient's labs from the urgent care were not available for examination. EKG showed a sinus rhythm with no ischemia or ectopy, no QTC prolongation. Rate was normal. She was tachycardic at initial presentation but heart rate improved rapidly with rest. Patient's sodium today was 127. Patient had concurrent hypochloremia of 92. Patient had very mild transaminitis. TSH normal at 1.82. Mag normal at 2.1. Urine sodium 40 and urine osmolality 542. Patient received 1 L of lactated Ringer's. She is well-appearing, and given her sodium is 127 and not 121, she was discussed with Dr. Smith, with whom she has an appointment tomorrow. We discussed outpatient management, and he agreed with this plan and will reevaluate her tomorrow. Patient also agreed with this plan and preferred to be discharged home rather than admitted. Patient well-appearing at time of discharge. Treatment Plan: [] Disposition: [] Impression: Mild hyponatremia This note was generated with [employer] dictation software. It may contain incorrect words, spelling, and punctuation that were not noted in review of the chart prior to signing ED Disposition - Plan for ED Patient: Disposition: Home or Assisted Living 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: Abn Labs Instructions: ED Hyponatremia Referrals: Priyanka Smith MD [Primary Care Provider] - 1 Day Additional Instructions: Keep your appointment with Dr. Smith tomorrow. If you have any worsening of your condition or any new concerning symptoms, please return immediately to the emergency department for another evaluation. What to do if you have Problems For any increased pain, shortness of breath, bleeding, nausea or vomiting, chest pain, or any unexpected problems, contact your Primary Care Provider. Call [facility] ([phone]) or report to the closest Emergency Room. Call 911 if necessary. 05/31/18 4412 <Electronically signed by Ana Olvera MD> Date Ana Olvera MD Cosigner Signature (If Indicated): Date CC: Priyanka Smith MD DISCHARGE INSTRUCTION Observed: 05/31/2018 Status: F Source: [place] 5:32 PM [facility] REPOSITORY [facility] Medical Records Department [address] [place] [address] Discharge Instruction 05/31/18 1200 MR#: [id number] Acct: [id number] Name: ASIA HAWLEY Rep #: [id number] : 1960 58 From: Ana Olvera MD PCP: Priyanka Smith MD Status: DEP ER ED Disposition - Plan for ED Patient: Disposition: Home or Assisted Living 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: Abn Labs Instructions: ED Hyponatremia Referrals: Priyanka Smith MD [Primary Care Provider] - 1 Day Additional Instructions: Keep your appointment with Dr. Smith tomorrow. If you have any worsening of your condition or any new concerning symptoms, please return immediately to the emergency department for another evaluation. What to do if you have Problems For any increased pain, shortness of breath, bleeding, nausea or vomiting, chest pain, or any unexpected problems, contact your Primary Care Provider. Call [facility] ([phone]) or report to the closest Emergency Room. Call 911 if necessary. 05/31/18 1732 <Electronically signed by Ana Olvera MD> Date Ana Olvera MD Cosigner Signature (If Indicated): Date CC: Priyanka Smith MD CBC W/DIFF, AUTOMATED Collected: 05/31/2018 Status: F Source: [place] 10:11 AM [facility] REPOSITORY TYPE CODE TESTS RESULT OUT OF RANGE REFERENCE UNITS LAB L100.1000 4.4-11.0 K/mm3 Normal WBC 7.7 LAB L100.1200 4.2-5.4 M/mm3 Normal RBC 4.75 LAB L100.1300 12.0-15.0 g/dl Normal HGB 14.1 LAB L100.1400 37-47 % Normal HCT 39.4 LAB L100.1500 81-99 fL Normal MCV 82.9 LAB L100.1600 27.0-32.0 pg Normal MCH 29.7 LAB L100.1700 32-36 g/gl Normal MCHC 35.8 LAB L100.1810 11.6-14.6 % Normal RDW CV 12.2 LAB L100.1820 35.1-43.9 fl Normal RDW SD 36.7 LAB L100.1900 150-450 K/mm3 Normal PLT 308 LAB L100.2000 6.2-12.0 fl Normal MPV 9.5 LAB L100.2100 47-70 % High NEUT% 70.2 LAB L100.2200 19-41 % Low LY% 18.2 LAB L100.2300 0-10 % High MONO% 11.3 LAB L100.2400 0-5 % Normal EO% 0.0 LAB L100.2500 0-1 % Normal BASO% 0.0 LAB L100.2550 0.0-0.9 % Normal IM GRAN % 0.300 Result Comment: IG% - Immature Granulocytes (promyelocytes, myelocytes and metamyelocytes) > 1% indicates that a LEFT SHIFT is Present. LAB L100.2620 2.0-7.7 X10 3/uL Normal Absolute Neut 5.4 LAB L100.2720 0.83-4.51 X10 3/ul Normal Absolute Lymph 1.40 Performed By: #### L100.0100 #### [facility] [address] [facility]. [place], [place], [id number] COMPREHENSIVE METABOLIC Collected: 05/31/2018 Status: F Source: [facility] 10:11 AM [facility] REPOSITORY TYPE CODE TESTS RESULT OUT OF RANGE REFERENCE UNITS LAB L501.0100 74-106 mg/dL Normal GLU 97 Result Comment: Please note revised GLUCOSE reference range effective 2017. LAB L501.1000 7-18 mg/dL Normal BUN 18 LAB L501.1100 0.55-1.02 mg/dL Normal CREAT,SERUM 0.78 Result Comment: The validity of the calculated GFR AND GFRAA in patients over 70 years has not been determined. Clinical correlation is essential. LAB L501.1110 >60 mL/min Normal EST GFR 80 Result Comment: Non- GFR Calc LAB L501.1115 >60 mL/min Normal EST GFR - AA 97 Result Comment: GFR Calc LAB L501.1255 ml/min Normal Estimated CRCL 69.02 LAB L501.1300 10-20 RATIO High BUN/CRE 23.0 LAB L501.1500 6.4-8. g/dL Normal 2 T PROT 7.9 LAB L501.1800 3.2-5. g/dL Normal 0 ALB 3.7 LAB L501.1950 2.2-4. g/dL Normal 2 GLOB 4.2 LAB L501.2000 0.9-2. RATIO Normal 4 A/G 0.9 LAB L501.2200 8.5-10 mg/dL Normal .1 CA 8.6 LAB L501.4100 15-37 U/L High AST 53 LAB L501.4305 45-117 U/L Normal ALK P 114 LAB L501.4405 13-56 U/L High ALT 90 LAB L501.4600 0.20-1 mg/dL Normal .00 T BILI 0.90 LAB L501.5300 136-14 mmol/L Low 5 NA 127 LAB L501.5600 3.5-5. mmol/L Normal 1 K 4.0 LAB L501.5900 98-107 mmol/L Low CL 92 LAB L501.6100 21.0-3 mmol/L Normal 2.0 CO2 29.0 LAB L501.6200 5-15 Normal GAP 6 Performed By: #### L500.4050, L501.5200, L501.9520 #### [facility] [address] [facility]. [place], [place], [address] MAGNESIUM Collected: 05/31/2018 Status: F Source: [place] 10:11 AM [facility] REPOSITORY TYPE CODE TESTS RESULT OUT OF RANGE REFERENCE UNITS LAB L501.5200 1.6-2.6 mg/dL Normal MG 2.1 Performed By: #### L500.4050, L501.5200, L501.9520 #### [facility] [address] [place], [address] THYROID STIM HORMONE Collected: 05/31/2018 Status: F Source: [place] (TSH) 10:11 AM [facility] REPOSITORY TYPE CODE TESTS RESULT OUT OF RANGE REFERENCE UNITS LAB L501.9520 0.358-3.74 uIU/mL Normal TSH 1.82 Performed By: #### L500.4050, L501.5200, L501.9520 #### [facility] [address] [place], [address] URINALYSIS, COMPLETE Collected: 05/31/2018 Status: F Source: [place] 10:00 AM [facility] REPOSITORY Order Comment: Order Date: 05/31/18 How was Urine Obtained? CLEAN CATCH TYPE CODE TESTS RESULT OUT OF RANGE REFERENCE UNITS LAB L400.3000 Yellow COLOR Normal Yellow LAB L400.3050 Clear Normal CLARITY Sl. Cloudy LAB L400.3200 Normal mg/dl Normal GLUCOSE, UR Normal LAB L400.3300 Negative mg/dL Normal BILIRUBIN URINE Negative LAB L400.3400 Negative mg/dl Normal KETONE UR Negative LAB L400.3465 1.002-1.030 Normal SP.GR. DIPSTX 1.025 LAB L400.3550 5.0 - 8.0 pH UR Normal 5.0 LAB L400.3600 Negative mg/dl PROT Normal DIPSTX Negative LAB L400.3700 Normal mg/dl High 4 UROBILI LAB L400.3750 Negative Normal NITRITE UR Negative LAB L400.3780 Negative /ul High 25 OCCULT BLOOD-UR LAB L400.3800 Negative /ul High LEUK 25 ESTERASE LAB L400.4050 0-5 /hpf WBC Normal 0-5 SEEN LAB L400.4100 0-5 /hpf Normal RBC-UA 0-5 SEEN LAB L400.4150 5-10 /hpf SQUAM Normal EPI 0-5 SEEN LAB L400.4300 None Seen /hpf 1+ Normal BACTERIA LAB L400.4350 <or=2+ /hpf 1+ Normal MUCUS, URINE LAB L400.4700 <or=2+ /hpf CA OX Normal CRYSTAL RARE Performed By: #### L400.0001 #### [facility] [address] [place], [address] URINE SODIUM Collected: 05/31/2018 Status: F Source: [place] 10:00 AM [facility] REPOSITORY Order Comment: Order Date: 05/31/18 TYPE CODE TESTS RESULT OUT OF RANGE REFERENCE UNITS LAB L501.5500 Not Establ. mmol/L Normal UR NA 40 Performed By: #### L501.5500 #### [facility] [address] [place], [address] OSMOLALITY, URINE Collected: 05/31/2018 Status: F Source: [place] 10:00 AM [facility] REPOSITORY Order Comment: Order Date: 05/31/18 TYPE CODE TESTS RESULT OUT OF RANGE REFERENCE UNITS LAB L501.7400 mOsm/KG Normal 542 OSMOLALITY,U R Result Comment: OSMOLALITY URINE REFERENCE INTERVALS 24-hour Urine 300 - 900 mOsm/kg Random Urine 50 - 1400 mOsm/kg After 12 Hr fluid restriction >850 mOsm/kg Performed By: #### L501.7400 #### [facility] [address] [place] [place], [address] CHEST PA AND LATERAL Observed: 05/31/2018 Status: F Source: [place] 9:24 AM [facility] REPOSITORY [facility] Imaging Services [address] [facility] [place] [address] Chest PA and Lateral MR#: [id number] Acct: [id number] Name: ASIA HAWLEY Rep #: [id number] : 1960 F 58 From: Joaquin Ellington MD PCP: Luis BHATT,Priyanka Status: REG ER Study: Chest PA and Lateral Date of Exam: 05/31/18 Exam# [id number] Ordering Dr: Ana Olvera MD STUDY: X-RAY CHEST REASON FOR EXAM: Female, 58 years old. Chest pain. Headaches. TECHNIQUE: PA and lateral views of the chest. COMPARISON: Comparison is made with prior study dated December 06, 2009. FINDINGS: EKG electrodes are seen. Pectus excavatum deformity. Minimal increased markings in the lingular segment of the left upper lobe There is no demonstrated pleural abnormality. Normal size heart. Normal mediastinum and ahsan. Normal visualized pulmonary arteries. Normal visualized aortic arch and descending thoracic aorta. Normal visualized thoracic spine. Normal visualized ribs, clavicles, and shoulders. There is no demonstrated abnormality of the visualized soft tissue structures of the upper abdomen. RAD/Chest PA and Lateral IMPRESSION: Mild degree of increased markings in the lingular segment of the left upper lobe. This may represent either atelectasis and/or early infiltrate. Follow-up is recommended. Electronically Signed: Joaquin Ellington MD at 11:06 EST Tel [phone], Service support , CC: Ana Olvera MD; Priyanka Smith MD Manager Statistical Programming: Signed OSMOLALITY, URINE Collected: 05/30/2018 Status: F Source: [place] 1:20 PM [facility] REPOSITORY TYPE CODE TESTS RESULT OUT OF RANGE REFERENCE UNITS LAB UOSM 50-1200 mOsm/kg 566 Osmolality, Urine Performed By: #### UOSM, UNAR #### [facility] [address] [place], [place] [address] SODIUM,URINE,RANDOM Collected: Status: F Source: [place] 05/30/2018 1:20 PM [facility] REPOSITORY TYPE CODE TESTS RESULT OUT OF RANGE REFERENCE UNITS LAB UNAR 14-216 mmol/L 78 Sodium,Urine ,Random Performed By: #### UOSM, UNAR #### [facility] [address] [place], [place] [address] BASIC METABOLIC PANL Collected: 05/30/2018 Status: F Source: [place] 1:19 PM [facility] REPOSITORY TYPE CODE TESTS RESULT OUT OF REFERENCE UNITS RANGE LAB GLU 74-99 mg/dL High Glucose 108 Result Comment: The [place] [employer] (ADA) provides guidance for cutoff values for fasting glucose and random glucose. The ADA defines fasting as no caloric intake for at least 8 hours. Fas ting plasma glucose results between 100 to 125 mg/dL indicate increased risk for diabetes (prediabetes). Fasting plasma glucose results greater than or equal to 126 mg/dL meet the criteria for diagnosis of diabetes. In the absence of unequivocal hyperglycemia, results should be confirmed by repeat testing. In a patient with classic symptoms of hyperglycemia or hyperglycemic crisis, random plasma glucose results greater than or equal to 200 mg/dL meet the criteria for diagnosis of diabetes. Reference: Standards of Medical Care in Diabetes 2016, [place] [employer]. Diabetes Care. 2016.39(Suppl 1). LAB BUN 7-21 mg/dL BUN 15 LAB CRET 0.58-0.96 mg/dL Creatinine 0.69 LAB NA 136-144 mmol/L Sodium Low 121 LAB K 3.7-5.1 mmol/L Potassium 4.3 LAB CL 97-105 mmol/L Chloride Low 87 LAB CO2 22-30 mmol/L CO2 24 LAB AGAP 9-18 mmol/L Anion Gap 10 LAB CA 8.5-10.2 mg/dL Calcium, Total 9.9 LAB GFRAA eGFR- Amer. >60 LAB GFRNAA . eGFR-All Other Races >60 Result Comment: eGFR (Estimated GFR) Units of measure: mL/min/1.73 meters squared eGFR is derived from the reexpressed MDRD Study equation using the following parameters: serum creatinine, age, gender and race. The creatinine assay has been calibrated to be traceable to IDMS. An eGFR <60 mL/min/1.73m2 for >3 months is consistent with chronic kidney disease. Refer to KDOQI guidelines for clinical interpretation. In patients with unstable renal function, e.g. those with acute kidney injury, the eGFR may not accurately reflect actual GFR. Performed By: #### BMP #### [facility] [address] [place], [place] [address] CBC Collected: 05/28/2018 Status: F Source: [place] 9:13 AM [facility] REPOSITORY TYPE CODE TESTS RESULT OUT OF REFERENCE UNITS RANGE LAB WBC 3.70-11.00 k/uL WBC 8.54 LAB RBC 3.90-5.20 m/uL RBC 4.90 LAB HGB 11.5-15.5 g/dL Hemoglobin 14.5 LAB HCT 36.0-46.0 % Hematocrit 42.3 LAB MCV 80.0-100.0 fL MCV 86.3 LAB MCH 26.0-34.0 pG MCH 29.6 LAB MCHC 30.5-36.0 g/dL MCHC 34.3 LAB RDWCV 11.5-15.0 % RDW-CV 12.0 LAB PLTCT 150-400 k/uL Platelet Count 341 LAB MPV 9.0-12.7 fL MPV 10.2 LAB ABSNUC <0.01 k/uL Absolute nRBC <0.01 Performed By: #### CBC, CMP, FT4, TSH #### [facility] [address] [place], [place] [address] COMP METABOLIC PANEL Collected: 05/28/2018 Status: F Source: [place] 9:13 AM [facility] REPOSITORY TYPE CODE TESTS RESULT OUT OF REFERENCE UNITS RANGE LAB TP 6.3-8.0 g/dL Protein, High Total 8.1 LAB ALB 3.9-4.9 g/dL Albumin 4.1 LAB CA 8.5-10.2 mg/dL Calcium, Total 9.9 LAB TBIL 0.2-1.3 mg/dL Bilirubin, Total 0.8 LAB ALKP 34-123 U/L Alkaline Phosphatase 103 LAB AST 13-35 U/L AST High 63 LAB GLU 74-99 mg/dL Glucose 86 Result Comment: The [place] [employer] (ADA) provides guidance for cutoff values for fasting glucose and random glucose. The ADA defines fasting as no caloric intake for at least 8 hours. Fas ting plasma glucose results between 100 to 125 mg/dL indicate increased risk for diabetes (prediabetes). Fasting plasma glucose results greater than or equal to 126 mg/dL meet the criteria for diagnosis of diabetes. In the absence of unequivocal hyperglycemia, results should be confirmed by repeat testing. In a patient with classic symptoms of hyperglycemia or hyperglycemic crisis, random plasma glucose results greater than or equal to 200 mg/dL meet the criteria for diagnosis of diabetes. Reference: Standards of Medical Care in Diabetes 2016, [place] [employer]. Diabetes Care. 2016.39(Suppl 1). LAB BUN 7-21 mg/dL BUN 12 LAB CRET 0.58-0.96 mg/dL Creatinine 0.72 LAB NA 136-144 mmol/L Low Sodium 126 LAB K 3.7-5.1 mmol/L Potassium 4.2 LAB CL 97-105 mmol/L Low Chloride 88 LAB CO2 22-30 mmol/L CO2 27 LAB AGAP 9-18 mmol/L Anion Gap 11 LAB ALT 7-38 U/L ALT High 82 LAB GFRAA eGFR- Amer. >60 LAB GFRNAA . eGFR-All Other Races >60 Result Comment: eGFR (Estimated GFR) Units of measure: mL/min/1.73 meters squared eGFR is derived from the reexpressed MDRD Study equation using the following parameters: serum creatinine, age, gender and race. The creatinine assay has been calibrated to be traceable to IDMS. An eGFR <60 mL/min/1.73m2 for >3 months is consistent with chronic kidney disease. Refer to KDOQI guidelines for clinical interpretation. In patients with unstable renal function, e.g. those with acute kidney injury, the eGFR may not accurately reflect actual GFR. Performed By: #### CBC, CMP, FT4, TSH #### [facility] [address] [address] FREE T4 Collected: 05/28/2018 Status: F Source: [place] 9:13 AM [facility] REPOSITORY TYPE CODE TESTS RESULT OUT OF RANGE REFERENCE UNITS LAB FT4 0.9-1.7 ng/dL High Free T4 1.9 Performed By: #### CBC, CMP, FT4, TSH #### [facility] [address] [address] TSH Collected: 05/28/2018 Status: F Source: [place] 9:13 AM [facility] REPOSITORY TYPE CODE TESTS RESULT OUT OF RANGE REFERENCE UNITS LAB TSH 0.400-5.500 uU/mL TSH 2.790 Performed By: #### CBC, CMP, FT4, TSH #### [facility] [address] [address] PROGRESS Observed: 05/28/2018 Status: COMPLETED Source: [place] 8:29 AM [facility] REPOSITORY HNO ID: [id number] Author: Harsha Glass Service: (none) Author Type: Physician Type: Progress Notes Filed: 05/28/2018 8:50 AM Note Text: Patient presents with: Nausea: with insomnia x 2 weeks HPI: Nausea: Duration: nausea for 2 weeks, not sleeping more than a couple hours per night the last week. She is not able to go back to sleep once she wakes. Character: No abdominal pain Aggravating: Low appetite Relieving: omeprazole every other day. Taking promethazine which helps. Tried melatonin. Associated: frontal headache, shaky hands this morning, fatigue Pertinent negatives: Denies reflux, vomiting, diarrhea, abdominal pain, stress, fever, heat intolerance, weight change, shortness of breath, dizziness Denies past issues with insomnia. PAST MEDICAL HISTORY Diagnosis Date - Abnormal Papanicolaou smear of vagina and vaginal HPV - Diverticulitis of sigmoid colon 12/07/2009 ACUTE - Diverticulosis of colon (without mention of hemorrhage) - GERD (gastroesophageal reflux disease) 10/01/2017 - Hives - Intramural leiomyoma of uterus - Rectal bleed 09/05/14 - Unspecified hypothyroidism PAST SURGICAL HISTORY Procedure Laterality Date - CERVIX UTERI CAUTER CRYOCAUTER 1999 - COLONOSCOP W/ OR W/O [facility] SPEC 04/10/09 - COLONOSCOP W/ OR W/O [facility] SPEC 09/05/14 Repeat 2024 - COLONOSCOP W/ OR W/O [facility] SPEC 12/22/2017 Colonoscopy - COLPOSCOPY (VAGINOSCOPY) Multiple starting 1995 Colposcopy - LAPAROSCOPIC HEMICOLECTOMY 12/07/2009 diverticulitis - LIGATE FALLOPIAN TUBE Tubal ligation - LX PARTIAL COLECTOMY 12/23/2017 [facility] lap lysis of adhesions, left oopherectomy, right salpinoopherectomy, left salpingectomy, redo lap sigmoid colectomy w/ressection, lap mobilization of splenic flexure, lap appendectomy - PAST SURGICAL HISTORY OF 10/2008 T9-L1 fusion, Dr. Lemon - PAST SURGICAL HISTORY OF 10/24/2009 Removed T9-L1, 2 rods and 8 screws, Dr Lemon - REMOVAL GALLBLADDER Cholecystectomy - REPAIR INTERCARP/CARP-METACARP JT Right 10/13/2017 Right thumb CMC arthroplasty with LRTI MEDICATIONS: omeprazole (PRILOSEC) 20 mg capsule Take 1 capsule by mouth daily before breakfast. 1/2 hr before meal. levothyroxine (SYNTHROID) 75 mcg tablet TAKE 1 TABLET ONCE DAILY ON AN EMPTY STOMACH FOR THYROID acetaminophen (TYLENOL) 325 mg cap Take by mouth as needed. promethazine (PHENERGAN) 12.5 mg tablet Take 1 tablet by mouth every 6 hours as needed. multivitamins(DAILY MULTIVITAMIN TAB) Take one(1) tablet daily. ALLERGIES: ALLERGIES Allergen Reactions - Environmental [Othe* ? what=congestion - Hay Fever [Seasonal* - Zyrtec [Cetirizine * Itching VITALS: BP 140/96 (BP Site: Right Arm, BP Position: Sitting, BP Cuff Size: Regular Adult) Pulse 84 Temp 36.9 ?C (98.4 ?F) (Left Tympanic) Resp 16 Wt 78.2 kg (172 lb 6.4 oz) LMP 01/07/2011 BMI 29.07 kg/m? PHYSICAL EXAM: GEN: pleasant, no acute distress, alert HEENT: PERRL, EOMI, MMM NECK: supple, no lymphadenopathy, no thyromegaly HEART: regular rate, regular rhythm, no murmurs LUNGS: clear to auscultation, no wheezes or crackles, no increased WOB ABD: soft, non-distended, no masses palpated, non-tender EXT: no clubbing, no cyanosis, no edema PSYCH: Normal mood, full range of affect, speech rate normal and content appropriate ASSESSMENT/PLAN: 1. Insomnia, unspecified type - ICD9: 780.52, ICD10: G47.00 (primary diagnosis) 2. Nausea - ICD9: 787.02, ICD10: R11.0 3. Hypothyroidism, unspecified type - ICD9: 244.9, ICD10: E03.9 4. Fatigue, unspecified type - ICD9: 780.79, ICD10: R53.83 - COMP METABOLIC PANEL - TSH BLD - T4 FREE/FREE THYROX - CBC F/u results and further evaluation with PCP next week. She may try OTC sleep aids. Do not mix promethazine with them. Declines promethazine refill. BP may be elevated due to lack of sleep. Harsha Glass MD CNOV Observed: 05/28/2018 Status: COMPLETED Source: [place] 8:15 AM [facility] REPOSITORY Office Visit (WSTR) ASIA HAWLEY ([id number]) 1960 F Date Time Provider Department 05/28/18 8:15 AM HARSHA GLASS [facility] During your visit today, we recorded the following information about you: Temperature Pulse Respiration Blood pressure 98.4 degrees 84/minute 16/minute 140/96 Weight 78.2 kg Harsha Glass MD 05/28/2018 8:50 AM Signed Patient presents with: Nausea: with insomnia x 2 weeks HPI: Nausea: Duration: nausea for 2 weeks, not sleeping more than a couple hours per night the last week. She is not able to go back to sleep once she wakes. Character: No abdominal pain Aggravating: Low appetite Relieving: omeprazole every other day. Taking promethazine which helps. Tried melatonin. Associated: frontal headache, shaky hands this morning, fatigue Pertinent negatives: Denies reflux, vomiting, diarrhea, abdominal pain, stress, fever, heat intolerance, weight change, shortness of breath, dizziness Denies past issues with insomnia. PAST MEDICAL HISTORY Diagnosis Date - Abnormal Papanicolaou smear of vagina and vaginal HPV - Diverticulitis of sigmoid colon 12/07/2009 ACUTE - Diverticulosis of colon (without mention of hemorrhage) - GERD (gastroesophageal reflux disease) 10/01/2017 - Hives - Intramural leiomyoma of uterus - Rectal bleed 09/05/14 - Unspecified hypothyroidism PAST SURGICAL HISTORY Procedure Laterality Date - CERVIX UTERI CAUTER CRYOCAUTER 1999 - COLONOSCOP W/ OR W/O [facility] SPEC 04/10/09 - COLONOSCOP W/ OR W/O [facility] SPEC 09/05/14 Repeat 2024 - COLONOSCOP W/ OR W/O [facility] SPEC 12/22/2017 Colonoscopy - COLPOSCOPY (VAGINOSCOPY) Multiple starting 1995 Colposcopy - LAPAROSCOPIC HEMICOLECTOMY 12/07/2009 diverticulitis - LIGATE FALLOPIAN TUBE Tubal ligation - LX PARTIAL COLECTOMY 12/23/2017 [facility] lap lysis of adhesions, left oopherectomy, right salpinoopherectomy, left salpingectomy, redo lap sigmoid colectomy w/ressection, lap mobilization of splenic flexure, lap appendectomy - PAST SURGICAL HISTORY OF 10/2008 T9-L1 fusion, Dr. Lemon - PAST SURGICAL HISTORY OF 10/24/2009 Removed T9-L1, 2 rods and 8 screws, Dr Lemon - REMOVAL GALLBLADDER Cholecystectomy - REPAIR INTERCARP/CARP-METACARP JT Right 10/13/2017 Right thumb CMC arthroplasty with LRTI MEDICATIONS: omeprazole (PRILOSEC) 20 mg capsule Take 1 capsule by mouth daily before breakfast. 1/2 hr before meal. levothyroxine (SYNTHROID) 75 mcg tablet TAKE 1 TABLET ONCE DAILY ON AN EMPTY STOMACH FOR THYROID acetaminophen (TYLENOL) 325 mg cap Take by mouth as needed. promethazine (PHENERGAN) 12.5 mg tablet Take 1 tablet by mouth every 6 hours as needed. multivitamins(DAILY MULTIVITAMIN TAB) Take one(1) tablet daily. ALLERGIES: ALLERGIES Allergen Reactions - Environmental [Othe* ? what=congestion - Hay Fever [Seasonal* - Zyrtec [Cetirizine * Itching VITALS: BP 140/96 (BP Site: Right Arm, BP Position: Sitting, BP Cuff Size: Regular Adult) Pulse 84 Temp 36.9 ?C (98.4 ?F) (Left Tympanic) Resp 16 Wt 78.2 kg (172 lb 6.4 oz) LMP 01/07/2011 BMI 29.07 kg/m? PHYSICAL EXAM: GEN: pleasant, no acute distress, alert HEENT: PERRL, EOMI, MMM NECK: supple, no lymphadenopathy, no thyromegaly HEART: regular rate, regular rhythm, no murmurs LUNGS: clear to auscultation, no wheezes or crackles, no increased WOB ABD: soft, non-distended, no masses palpated, non-tender EXT: no clubbing, no cyanosis, no edema PSYCH: Normal mood, full range of affect, speech rate normal and content appropriate ASSESSMENT/PLAN: 1. Insomnia, unspecified type - ICD9: 780.52, ICD10: G47.00 (primary diagnosis) 2. Nausea - ICD9: 787.02, ICD10: R11.0 3. Hypothyroidism, unspecified type - ICD9: 244.9, ICD10: E03.9 4. Fatigue, unspecified type - ICD9: 780.79, ICD10: R53.83 - COMP METABOLIC PANEL - TSH BLD - T4 FREE/FREE THYROX - CBC F/u results and further evaluation with PCP next week. She may try OTC sleep aids. Do not mix promethazine with them. Declines promethazine refill. BP may be elevated due to lack of sleep. Harsha Glass MD Referring Provider: SELF [[id number]] Allergies As of Date: 05/28/2018 Noted Allergy Reaction environmental [Other] 12/28/2006 Comments: ? what=congestion HAY FEVER (SEASONAL ALLERGIES) 08/13/2009 ZYRTEC (CETIRIZINE HCL) 08/06/2014 9 - Itching Date Reviewed: 05/28/2018 Reviewed by: Tia Doyle Ma - Fully Assessed Reason for Visit: Nausea [70] Cmt: with insomnia x 2 weeks Primary Visit Diagnosis:Insomnia, unspecified type [G47.00] Other Visit Diagnoses:Nausea [R11.0] Hypothyroidism, unspecified type [E03.9] Fatigue, unspecified type [R53.83] Order(s):TSH BLD [SQTSH] Order #: [id number] FUTURE T4 FREE/FREE THYROX [SQFT4] Order #: [id number] FUTURE COMP METABOLIC PANEL [SQCMP] Order #: [id number] FUTURE CBC [SQCBC] Order #: [id number] FUTURE Prescriptions as of 05/28/2018 Sig: OMEPRAZOLE 20 MG CAPSULE,CLARK* Take 1 capsule by mouth daily* LEVOTHYROXINE 75 MCG TABLET TAKE 1 TABLET ONCE DAILY ON A* ACETAMINOPHEN 325 MG CAPSULE Take by mouth as needed. PROMETHAZINE 12.5 MG TABLET Take 1 tablet by mouth every * * DAILY MULTIVITAMIN TABLET Take one(1) tablet daily. Problem List As Of Date 05/28/2018 Noted Resolved Hypothyroidism [E03.9] Abnormal Papanicolaou Smear of Vagina and Vagin* 02/06/2010 Dyspareunia [XVT7003] INVALID FOR*02/06/2010 Fx Sacrum/Coccyx-Closed [S32.10XA, S32.2XXA] INVALID FOR*02/06/2010 Fx Dorsal Vertebra-Closed [S22.009A] INVALID FOR*02/06/2010 Diverticulosis [K57.90] INVALID FOR* Calcaneal spur [M77.30] INVALID FOR*10/01/2017 Hives [L50.9] 10/01/2017 Chronic urticaria [L50.8] INVALID FOR*10/01/2017 Open wound(s) (multiple) of unspecified site(s)*INVALID FOR*10/01/2017 Primary osteoarthritis of first carpometacarpal*INVALID FOR* More... Obesity, Class I, BMI 30-34.9 E66.9 [E66.9] INVALID FOR* GERD (gastroesophageal reflux disease) [K21.9] INVALID FOR* Medications Discontinued During This Encounter metroNIDAZOLE (FLAGYL) 500 mg tablet 6 ta* 0 12/09/2017 05/28/2018 Route: ORAL Sig: Take 1 tablet by mouth three times daily. 2 TABLETS AT 6, 8, AND 10 PM Patient not taking: Reported on 12/21/2017 Disc: Course of therapy completed neomycin 500 mg tablet 6 ta* 0 12/09/2017 05/28/2018 Route: ORAL Sig: Take 2 tablets by mouth four times daily. 2 TABLETS AT 6, 8 ,AND 10 PM Disc: Course of therapy completed miSOPROStol (CYTOTEC) 200 mcg tablet 4 ta* 0 12/21/2017 05/28/2018 Route: OTHER Si tablets as directed. Take 2 tabs the night before AND 2 tabs the morning of the procedure - vaginally. Disc: Course of therapy completed ondansetron orally disintegrating (Z* 12 t* 1 03/15/2018 05/28/2018 Route: ORAL Sig: Take 1 tablet by mouth every 6 hours as needed for Nausea/Vomiting. Patient not taking: Reported on 05/28/2018 Disc: Course of therapy completed Encounter Status:Closed by HARSHA GLASS MD on 05/28/18 PROGRESS Observed: 02/03/2018 Status: COMPLETED Source: [place] 5:53 PM [facility] REPOSITORY HNO ID: [id number] Author: Broderick Ohara Service: (none) Author Type: Physician Type: Progress Notes Filed: 02/03/2018 5:56 PM Note Text: FOLLOW UP VISIT - POST OP COLON RESECTION NAME: Asia Herrera Chandan [facility] NO.: [id number] DATE OF SERVICE: February 03, 2018 : 1960 REFERRING PHYSICIAN: Priyanka Smith MD Asia is a patient I am following for a complaint of recurring left lower quadrant pain. ? The patient underwent a sigmoid colectomy by Dr. Bar Grace in 2009. This was while the patient was hospitalized with an episode of acute diverticulitis. The patient states she had 6 inches of her colon removed at that time. ? The patient's surgical procedure was December 07, 2009. She underwent sigmoid colectomy for acute perforated diverticulitis. This was done in the emergency procedure. This was performed laparoscopically. A segment of inflamed colon was removed. Due to the fact that a longer rectal stump was left in place. A handsewn anastomosis was performed by Dr. Grace. The patient recalls she was in the hospital for approximately 1 week postoperatively. No mention of leak or other complications were noted, but discharge summary was not able to be obtained. Pathology noted an 8 cm length of sigmoid colon. ? Since that time. The patient is noted one to 2 episodes of diverticulitis and left lower quadrant pain per year. Usually this had resolved with oral antibiotics. ? The patient underwent colonoscopy in 2014 for rectal bleeding which demonstrated diverticulosis in the sigmoid area without other abnormalities. ? The patient presented to Dr. Grace with the above complaints of recurring left lower quadrant pain and likely chronically recurring diverticulitis. The patient since then notes a degree of discomfort and bloating after eating food. She noted discomfort after her bowel prep, which she was able to tolerate the lower volume. Bowel prep of Mirialx/Gatorade and Dulcolax ? CT scan was obtained which demonstrated a 4 cm left ovarian cystic type mass and sigmoid diverticulosis. A barium enema was obtained which demonstrated sigmoid diverticulosis with a few other diverticula throughout the colon and no other specific abnormalities. ? The patient was evaluated by Dr. Valadez for her left ovarian cyst. Ultrasound following the CAT Scan Was Performed at [facility] [place] and demonstrated no abnormal masses in the left or right ovary I performed a laparoscopic low anterior resection and and mobilization of the splenic flexure with appendectomy and bilateral tubal oophorectomy in conjunction with Dr. Valadez on December 22, 2017. The pathology demonstrated: MICROSCOPIC DIAGNOSIS A. Right fallopian tube and ovary: Ovary ? 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 Mesothelial inclusion cysts. Fallopian tube - no pathologic diagnosis. See comment. B. Left fallopian tube and ovary: Ovary - simple serous cystadenoma (3 cm in greatest dimension). Fallopian tube - no pathologic diagnosis. C. Sigmoid colon and appendix: Diverticulosis and diverticulitis. Appendix, no pathologic diagnosis. Pericolonic lymph node with reactive changes. See comment. D. Distal donut (rectal): Colonic donut, no pathologic diagnosis. E. Proximal donut (sigmoid): Colonic donut, no pathologic diagnosis. : 12/28/17 COMMENT A. Calcification is noted in the area of papillary serous cystadenoma and also in the mesothelial inclusion cyst. C. The largest possible lymph node consists of an area of fat necrosis and inflammation. Please make reference to previous specimen ([id number]) sigmoid colon, biopsy with diagnosis of fragments of colonic mucosa with focal changes consistent with ischemic colitis and ([id number]) sigmoid colon, colectomy with diagnosis of diverticulosis and diverticulitis. MICROSCOPIC DESCRIPTION Slides are reviewed. GROSS DESCRIPTION A - Received in fixative is one container labeled with the patient's name and designated right fallopian tube and ovary. The specimen consists of a fallopian tube and ovary. The fallopian tube measures 3 cm in length and 0.6 cm in diameter. The fimbrial end is identified. No tubo-ovarian adhesions are noted. Also present in the container is a detached piece of tubular tissue, a possible portion of fallopian tube, measuring 1 cm in length and 0.3 cm in diameter. The ovary measures 3 x 2 x 0.8 cm. The surface of the ovary shows a polypoid tissue measuring 0.5 cm in greatest dimension. Senior Mechanical Design Engineer sections are submitted in three cassettes as follows: 1 ? fallopian tube and also possible detached fragment of fallopian tube, 2 AND 3 ? ovary (cassette 2 also contains the polypoid lesion on the surface). Almost 90% of the ovary is submitted. / : 12/24/17 B - Received in fixative is one container labeled with the patient's name and designated left fallopian tube and ovary. The specimen consists of a fallopian tube and detached ovary. The fallopian tube measures 3 cm in length and 0.5 cm in diameter. The fimbrial end is identified. Sections do not reveal any mass lesion. The soft to cystic ovary measures 3 x 3 x 2.5 cm and weighs 18 gm. The outer surface is smooth without any cut lesion. Almost the entire ovary is replaced by a cyst filled with clear fluid. The cyst wall is smooth and measures up to 0.2 cm in thickness. No mass lesions are identified. Senior Mechanical Design Engineer sections are submitted in three cassettes as follows: 1 ? fallopian tube, 2 AND 3 ? ovary. / : 12/24/17 C - Received in fixative is one container labeled with the patient's name and designated sigmoid colon and appendix. The specimen consists of a previously, partially opened segment of colon measuring 15 cm in length. The serosal surface is congested. One resection margin is open and the other resection margin is stapled. The mucosa shows focal area of bluish discoloration. Also present in the container is an appendix measuring 4.5 cm in length and up to 0.5 cm in diameter. The attached periappendiceal adipose tissue measures up to 1 cm in thickness. Sections of the appendix reveal almost obliterated lumen. The entire appendix is submitted in one cassette, #1. More sections and dictation will follow after additional fixation. / : 12/24/17 Sections reveal multiple diverticula. A few of the diverticula are filled with fecal material. No obviously ruptured diverticula are noted. Blue dye discoloration is noted in the area of the diverticula. Sections of pericolonic adipose tissue reveal multiple lymph nodes. The largest lymph node measures 1.5 cm in greatest dimension. Senior Mechanical Design Engineer sections are submitted in six cassettes as follows: 1 ? appendix, 2 ? resection margin, open resection margin is inked black, 3 AND 4 ? diverticula, 5 ? 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 pericolonic adipose tissue with possible lymph nodes. / : 12/27/17 D - Received in fixative is one container labeled with the patient's name and designated distal donut (rectal). The specimen consists of a donut-shaped piece of colonic tissue measuring 1.5 x 1 x 0.5 cm. No lesion is identified. The specimen is sectioned and submitted entirely in one cassette. / : 12/24/17 E - Received in fixative is one container labeled with the patient's name and designated proximal donut (sigmoid). The specimen consists of a donut-shaped piece of colonic tissue measuring 2 x 1.5 x 0.5 cm. Multiple sutures are noted. Senior Mechanical Design Engineer sections are submitted in one cassette. / : 12/24/17 TC:1 CPT: 49007 x3, 16240 x3 Asia noted a superficial rash on her abdomen, but no rales that she noticed when she got home and started showering. Post operative pain had been well controlled. The patient denies nausea. The patient`s appetite has been improving for the past few days but she still feels she's not eating as much woody. She was prior to surgery. She is noting some liquid bowel movements but has not had solid stool yet. Approximately 2 weeks ago, the patient lifted a slightly heavier item and then noted severe pain and burning along the right lower quadrant 10 mm port site. This has persisted. She notes no bulges in the area. VITALS: Last menstrual period 01/07/2011. On examination, the abdominal skin incisions were clean, dry, and intact. The bowel sounds were normal, the abdomen was soft. Her no palpable hernias at the right lower quadrant port site, but she does note point tenderness just below that site. PROCEDURE: INJECTION OF LOCAL/STEROID The risks, benefits and anticipated outcomes of the procedure, the risks and benefits of the alternatives to the procedure, and the roles and tasks of the personnel to be involved, were discussed with the patient, and the patient consents to the procedure and agrees to proceed. After consent was obtained and the site, person, and procedure verified, the patient`s skin was prepped and draped in the usual fashion. A combination of Lidocaine and Marcaine along with 10mg of Kenalog was injected into the skin. This gave significant pain relief. The patient tolerated the procedure well. Assessment IMPRESSION: Status Post laparoscopic low anterior resection for chronic recurring diverticulitis. PLAN: Asia may return to regular activities as tolerated. she may shower and bathe. The patient may now drive as long as she is no longer taking narcotic pain medication. If she notes any difficulties, she should contact me immediately. I told her that the local anesthetic should work for the next few hours and hopefully the steroid will decrease her overall discomfort in the coming days. I'm comfortable doing. Repeat injections usual monthly basis if necessary. Hopefully this is just related to the suture, which will dissolve within the next few weeks to month. I discussed with the patient I typically like to perform follow up endoscopy approximately one year after colon resection to assess the anastomotic site. Diagnoses: (L76.82) Incisional pain (primary encounter diagnosis) (K57.30) Diverticulosis of large intestine without perforation or abscess without bleeding Return to Clinic: The patient is instructed to follow- up with me in 1 month if needed for repeat injection. Broderick Ohara MD CNOV Observed: 02/03/2018 Status: COMPLETED Source: [place] 7:40 AM [facility] REPOSITORY Office Visit (GENSWS) ASIA HAWLEY ([id number]) 1960 F Date Time Provider Department 02/03/18 7:40 AM BRODERICK OHARA During your visit today, we recorded the following information about you: Broderick Ohara MD 02/03/2018 5:56 PM Signed FOLLOW UP VISIT - POST OP COLON RESECTION NAME: Asia Hawley [facility] NO.: [id number] DATE OF SERVICE: February 03, 2018 : 1960 REFERRING PHYSICIAN: Priyanka Smith MD Asia is a patient I am following for a complaint of recurring left lower quadrant pain. ? The patient underwent a sigmoid colectomy by Dr. Bra Grace in 2009. This was while the patient was hospitalized with an episode of acute diverticulitis. The patient states she had 6 inches of her colon removed at that time. ? The patient's surgical procedure was December 07, 2009. She underwent sigmoid colectomy for acute perforated diverticulitis. This was done in the emergency procedure. This was performed laparoscopically. A segment of inflamed colon was removed. Due to the fact that a longer rectal stump was left in place. A handsewn anastomosis was performed by Dr. Grace. The patient recalls she was in the hospital for approximately 1 week postoperatively. No mention of leak or other complications were noted, but discharge summary was not able to be obtained. Pathology noted an 8 cm length of sigmoid colon. ? Since that time. The patient is noted one to 2 episodes of diverticulitis and left lower quadrant pain per year. Usually this had resolved with oral antibiotics. ? The patient underwent colonoscopy in 2014 for rectal bleeding which demonstrated diverticulosis in the sigmoid area without other abnormalities. ? The patient presented to Dr. Grace with the above complaints of recurring left lower quadrant pain and likely chronically recurring diverticulitis. The patient since then notes a degree of discomfort and bloating after eating food. She noted discomfort after her bowel prep, which she was able to tolerate the lower volume. Bowel prep of Mirialx/Gatorade and Dulcolax ? CT scan was obtained which demonstrated a 4 cm left ovarian cystic type mass and sigmoid diverticulosis. A barium enema was obtained which demonstrated sigmoid diverticulosis with a few other diverticula throughout the colon and no other specific abnormalities. ? The patient was evaluated by Dr. Valadez for her left ovarian cyst. Ultrasound following the CAT Scan Was Performed at [facility] [place] and demonstrated no abnormal masses in the left or right ovary I performed a laparoscopic low anterior resection and and mobilization of the splenic flexure with appendectomy and bilateral tubal oophorectomy in conjunction with Dr. Valadez on December 22, 2017. The pathology demonstrated: MICROSCOPIC DIAGNOSIS A. Right fallopian tube and ovary: Ovary ? 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 Mesothelial inclusion cysts. Fallopian tube - no pathologic diagnosis. See comment. B. Left fallopian tube and ovary: Ovary - simple serous cystadenoma (3 cm in greatest dimension). Fallopian tube - no pathologic diagnosis. C. Sigmoid colon and appendix: Diverticulosis and diverticulitis. Appendix, no pathologic diagnosis. Pericolonic lymph node with reactive changes. See comment. D. Distal donut (rectal): Colonic donut, no pathologic diagnosis. E. Proximal donut (sigmoid): Colonic donut, no pathologic diagnosis. SJ:selvin 12/28/17 COMMENT A. Calcification is noted in the area of papillary serous cystadenoma and also in the mesothelial inclusion cyst. C. The largest possible lymph node consists of an area of fat necrosis and inflammation. Please make reference to previous specimen ([id number]) sigmoid colon, biopsy with diagnosis of fragments of colonic mucosa with focal changes consistent with ischemic colitis and ([id number]) sigmoid colon, colectomy with diagnosis of diverticulosis and diverticulitis. MICROSCOPIC DESCRIPTION Slides are reviewed. GROSS DESCRIPTION A - Received in fixative is one container labeled with the patient's name and designated right fallopian tube and ovary. The specimen consists of a fallopian tube and ovary. The fallopian tube measures 3 cm in length and 0.6 cm in diameter. The fimbrial end is identified. No tubo- ovarian adhesions are noted. Also present in the container is a detached piece of tubular tissue, a possible portion of fallopian tube, measuring 1 cm in length and 0.3 cm in diameter. The ovary measures 3 x 2 x 0.8 cm. The surface of the ovary shows a polypoid tissue measuring 0.5 cm in greatest dimension. Senior Mechanical Design Engineer sections are submitted in three cassettes as follows: 1 ? fallopian tube and also possible detached fragment of fallopian tube, 2 AND 3 ? ovary (cassette 2 also contains the polypoid lesion on the surface). Almost 90% of the ovary is submitted. / SJ: 12/24/17 B - Received in fixative is one container labeled with the patient's name and designated left fallopian tube and ovary. The specimen consists of a fallopian tube and detached ovary. The fallopian tube measures 3 cm in length and 0.5 cm in diameter. The fimbrial end is identified. Sections do not reveal any mass lesion. The soft to cystic ovary measures 3 x 3 x 2.5 cm and weighs 18 gm. The outer surface is smooth without any cut lesion. Almost the entire ovary is replaced by a cyst filled with clear fluid. The cyst wall is smooth and measures up to 0.2 cm in thickness. No mass lesions are identified. Senior Mechanical Design Engineer sections are submitted in three cassettes as follows: 1 ? fallopian tube, 2 AND 3 ? ovary. / SJ: 12/24/17 C - Received in fixative is one container labeled with the patient's name and designated sigmoid colon and appendix. The specimen consists of a previously, partially opened segment of colon measuring 15 cm in length. The serosal surface is congested. One resection margin is open and the other resection margin is stapled. The mucosa shows focal area of bluish discoloration. Also present in the container is an appendix measuring 4.5 cm in length and up to 0.5 cm in diameter. The attached periappendiceal adipose tissue measures up to 1 cm in thickness. Sections of the appendix reveal almost obliterated lumen. The entire appendix is submitted in one cassette, #1. More sections and dictation will follow after additional fixation. / SJ:rg 12/24/17 Sections reveal multiple diverticula. A few of the diverticula are filled with fecal material. No obviously ruptured diverticula are noted. Blue dye discoloration is noted in the area of the diverticula. Sections of pericolonic adipose tissue reveal multiple lymph nodes. The largest lymph node measures 1.5 cm in greatest dimension. Senior Mechanical Design Engineer sections are submitted in six cassettes as follows: 1 ? appendix, 2 ? resection margin, open resection margin is inked black, 3 AND 4 ? diverticula, 5 ? 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 pericolonic adipose tissue with possible lymph nodes. / : 12/27/17 D - Received in fixative is one container labeled with the patient's name and designated distal donut (rectal). The specimen consists of a donut-shaped piece of colonic tissue measuring 1.5 x 1 x 0.5 cm. No lesion is identified. The specimen is sectioned and submitted entirely in one cassette. / : 12/24/17 E - Received in fixative is one container labeled with the patient's name and designated proximal donut (sigmoid). The specimen consists of a donut-shaped piece of colonic tissue measuring 2 x 1.5 x 0.5 cm. Multiple sutures are noted. Senior Mechanical Design Engineer sections are submitted in one cassette. / : 12/24/17 TC:1 CPT: 72885 x3, 02060 x3 Asia noted a superficial rash on her abdomen, but no rales that she noticed when she got home and started showering. Post operative pain had been well controlled. The patient denies nausea. The patient`s appetite has been improving for the past few days but she still feels she's not eating as much woody. She was prior to surgery. She is noting some liquid bowel movements but has not had solid stool yet. Approximately 2 weeks ago, the patient lifted a slightly heavier item and then noted severe pain and burning along the right lower quadrant 10 mm port site. This has persisted. She notes no bulges in the area. VITALS: Last menstrual period 01/07/2011. On examination, the abdominal skin incisions were clean, dry, and intact. The bowel sounds were normal, the abdomen was soft. Her no palpable hernias at the right lower quadrant port site, but she does note point tenderness just below that site. PROCEDURE: INJECTION OF LOCAL/STEROID The risks, benefits and anticipated outcomes of the procedure, the risks and benefits of the alternatives to the procedure, and the roles and tasks of the personnel to be involved, were discussed with the patient, and the patient consents to the procedure and agrees to proceed. After consent was obtained and the site, person, and procedure verified, the patient`s skin was prepped and draped in the usual fashion. A combination of Lidocaine and Marcaine along with 10mg of Kenalog was injected into the skin. This gave significant pain relief. The patient tolerated the procedure well. Assessment IMPRESSION: Status Post laparoscopic low anterior resection for chronic recurring diverticulitis. PLAN: Asia may return to regular activities as tolerated. she may shower and bathe. The patient may now drive as long as she is no longer taking narcotic pain medication. If she notes any difficulties, she should contact me immediately. I told her that the local anesthetic should work for the next few hours and hopefully the steroid will decrease her overall discomfort in the coming days. I'm comfortable doing. Repeat injections usual monthly basis if necessary. Hopefully this is just related to the suture, which will dissolve within the next few weeks to month. I discussed with the patient I typically like to perform follow up endoscopy approximately one year after colon resection to assess the anastomotic site. Diagnoses: (L76.82) Incisional pain (primary encounter diagnosis) (K57.30) Diverticulosis of large intestine without perforation or abscess without bleeding Return to Clinic: The patient is instructed to follow- up with me in 1 month if needed for repeat injection. Broderick Ohara MD Referring Provider: PRIYANKA SMITH [[id number]] Allergies As of Date: 02/03/2018 Noted Allergy Reaction environmental [Other] 12/28/2006 Comments: ? what=congestion HAY FEVER (SEASONAL ALLERGIES) 08/13/2009 ZYRTEC (CETIRIZINE HCL) 08/06/2014 9 - Itching Date Reviewed: 02/03/2018 Reviewed by: Broderick Ohara - Fully Assessed Reason for Visit: Post Op [174] Primary Visit Diagnosis:Incisional pain [L76.82] Other Visit Diagnosis:Diverticulosis of large intestine without perforation or abscess without bleeding [K57.30] Prescriptions as of 02/03/2018 Sig: MISOPROSTOL 200 MCG TABLET 2 tablets as directed. Take 2* NEOMYCIN 500 MG TABLET Take 2 tablets by mouth four * METRONIDAZOLE 500 MG TABLET Take 1 tablet by mouth three * Patient not taking: Reported on 12/21/2017 LEVOTHYROXINE 75 MCG TABLET TAKE 1 TABLET ONCE DAILY ON A* ACETAMINOPHEN 325 MG CAPSULE Take by mouth as needed. PROMETHAZINE 12.5 MG TABLET Take 1 tablet by mouth every * * DAILY MULTIVITAMIN TABLET Take one(1) tablet daily. Problem List As Of Date 02/03/2018 Noted Resolved Hypothyroidism [E03.9] Abnormal Papanicolaou Smear of Vagina and Vagin* 02/06/2010 Dyspareunia [GHI7023] INVALID FOR*02/06/2010 Fx Sacrum/Coccyx-Closed [S32.10XA, S32.2XXA] INVALID FOR*02/06/2010 Fx Dorsal Vertebra-Closed [S22.009A] INVALID FOR*02/06/2010 Diverticulosis [K57.90] INVALID FOR* Calcaneal spur [M77.30] INVALID FOR*10/01/2017 Hives [L50.9] 10/01/2017 Chronic urticaria [L50.8] INVALID FOR*10/01/2017 Open wound(s) (multiple) of unspecified site(s)*INVALID FOR*10/01/2017 Primary osteoarthritis of first carpometacarpal*INVALID FOR* More... Obesity, Class I, BMI 30-34.9 E66.9 [E66.9] INVALID FOR* GERD (gastroesophageal reflux disease) [K21.9] INVALID FOR* Encounter Status:Closed by BRODERICK OHARA MD on 02/03/18 OPERATIVE REPORT Observed: 01/14/2018 Status: F Source: [place] 1:34 PM [facility] REPOSITORY [facility] Medical Records Department [address] [place] [id number] Operative Report 12/23/17 0832 MR#: [id number] Acct: [id number] Name: ASIA HAWLEY Rep #: [id number] : 1960 57 From: Erika Valadez PCP: Luis BHATT,Priyanka Status: DIS IN Y Location: [facility] [id number] Report of Operation Date of Procedure: 12/23/17 Pre-Operative Diagnosis: (1) Thickened endometrium (2) Persistent left ovarian cysts Post-Operative Diagnosis: Same Surgery/Procedure Performed:: (1) Attempted dilation of cervix Type of Anesthesia:: General Drains: stents Description of Procedure: Patient had stents placed by . Attention then turned to vaginal cavity where anterior cervix grasped with tenaculum. Cervix was stenotic AND unable to be dilated. Thus planned hysteroscopy with D AND C was aborted. Patient then prepped for laparoscopic surgery AND case turned over to . Once the ovaries were identified AND I assisted in the removal. 01/14/18 1334 <Electronically signed by Erika Valadez > Date Erika Valadez CC: Erika Valadez; Priyanka Smith MD; Broderick Ohara MD Signed PROGRESS Observed: 12/30/2017 Status: COMPLETED Source: [place] 9:06 AM [facility] REPOSITORY HNO ID: [id number] Author: Broderick Ohara Service: (none) Author Type: Physician Type: Progress Notes Filed: 12/30/2017 9:14 AM Note Text: OPERATIVE NOTATION FOR [facility] SURGICAL PROCEDURE. December 22, 2017 Asia Herbertiver 1960 [id number] female PROCEDURE: Laparoscopic Low Anterior Resection - [id number] and Lap Mobilization of the Splenic Flexure - +[phone], Laparoscopic Lysis of Adhesions - 34326 SURGEON: Anna Ohara M.D. FACS BUCKET PUSHER: [facility] DEPT: W PROVIDER: [id number] Ohara MD POS: [id number] DIAGNOSIS: (K57.30) Diverticulosis of large intestine without perforation or abscess without bleeding (primary encounter diagnosis) (R10.30) Lower abdominal pain ASA CLASS: 2 - mild FINDINGS: COMPLICATIONS: None PMHx - PAST MEDICAL HISTORY Diagnosis Date - Abnormal Papanicolaou smear of vagina and vaginal HPV - Diverticulitis of sigmoid colon 12/07/2009 ACUTE - Diverticulosis of colon (without mention of hemorrhage) - GERD (gastroesophageal reflux disease) 10/01/2017 - Hives - Intramural leiomyoma of uterus - Rectal bleed 09/05/14 - Unspecified hypothyroidism COMORBIDITIES - Obesity Post Op Occurrences - None Wound Classification - Clean Contaminated Operative note dictated in the [facility] dictation system. Broderick Ohara MD PROGRESS Observed: 12/30/2017 Status: COMPLETED Source: [place] 8:39 AM [facility] REPOSITORY HNO ID: [id number] Author: Broderick Ohara Service: (none) Author Type: Physician Type: Progress Notes Filed: 12/30/2017 9:23 AM Note Text: FOLLOW UP VISIT - POST OP COLON RESECTION NAME: Asia Hawley [facility] NO.: [id number] DATE OF SERVICE: 12/30/2017 : 1960 REFERRING PHYSICIAN: Priyanka Smith MD Asia is a patient I am following for a complaint of recurring left lower quadrant pain. ? The patient underwent a sigmoid colectomy by Dr. Bar Grace in 2009. This was while the patient was hospitalized with an episode of acute diverticulitis. The patient states she had 6 inches of her colon removed at that time. ? The patient's surgical procedure was December 07, 2009. She underwent sigmoid colectomy for acute perforated diverticulitis. This was done in the emergency procedure. This was performed laparoscopically. A segment of inflamed colon was removed. Due to the fact that a longer rectal stump was left in place. A handsewn anastomosis was performed by Dr. Grace. The patient recalls she was in the hospital for approximately 1 week postoperatively. No mention of leak or other complications were noted, but discharge summary was not able to be obtained. Pathology noted an 8 cm length of sigmoid colon. ? Since that time. The patient is noted one to 2 episodes of diverticulitis and left lower quadrant pain per year. Usually this had resolved with oral antibiotics. ? The patient underwent colonoscopy in 2014 for rectal bleeding which demonstrated diverticulosis in the sigmoid area without other abnormalities. ? The patient presented to Dr. Grace with the above complaints of recurring left lower quadrant pain and likely chronically recurring diverticulitis. The patient since then notes a degree of discomfort and bloating after eating food. She noted discomfort after her bowel prep, which she was able to tolerate the lower volume. Bowel prep of Mirialx/Gatorade and Dulcolax ? CT scan was obtained which demonstrated a 4 cm left ovarian cystic type mass and sigmoid diverticulosis. A barium enema was obtained which demonstrated sigmoid diverticulosis with a few other diverticula throughout the colon and no other specific abnormalities. ? The patient was evaluated by Dr. Valadez for her left ovarian cyst. Ultrasound following the CAT Scan Was Performed at [facility] [place] and demonstrated no abnormal masses in the left or right ovary I performed a laparoscopic low anterior resection and and mobilization of the splenic flexure with appendectomy and bilateral tubal oophorectomy in conjunction with Dr. Valadez on December 22, 2017. The pathology demonstrated: MICROSCOPIC DIAGNOSIS A. Right fallopian tube and ovary: Ovary ? 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 Mesothelial inclusion cysts. Fallopian tube - no pathologic diagnosis. See comment. B. Left fallopian tube and ovary: Ovary - simple serous cystadenoma (3 cm in greatest dimension). Fallopian tube - no pathologic diagnosis. C. Sigmoid colon and appendix: Diverticulosis and diverticulitis. Appendix, no pathologic diagnosis. Pericolonic lymph node with reactive changes. See comment. D. Distal donut (rectal): Colonic donut, no pathologic diagnosis. E. Proximal donut (sigmoid): Colonic donut, no pathologic diagnosis. HIMANSHU:selvin 12/28/17 COMMENT A. Calcification is noted in the area of papillary serous cystadenoma and also in the mesothelial inclusion cyst. C. The largest possible lymph node consists of an area of fat necrosis and inflammation. Please make reference to previous specimen ([id number]) sigmoid colon, biopsy with diagnosis of fragments of colonic mucosa with focal changes consistent with ischemic colitis and ([id number]) sigmoid colon, colectomy with diagnosis of diverticulosis and diverticulitis. MICROSCOPIC DESCRIPTION Slides are reviewed. GROSS DESCRIPTION A - Received in fixative is one container labeled with the patient's name and designated right fallopian tube and ovary. The specimen consists of a fallopian tube and ovary. The fallopian tube measures 3 cm in length and 0.6 cm in diameter. The fimbrial end is identified. No tubo-ovarian adhesions are noted. Also present in the container is a detached piece of tubular tissue, a possible portion of fallopian tube, measuring 1 cm in length and 0.3 cm in diameter. The ovary measures 3 x 2 x 0.8 cm. The surface of the ovary shows a polypoid tissue measuring 0.5 cm in greatest dimension. Senior Mechanical Design Engineer sections are submitted in three cassettes as follows: 1 ? fallopian tube and also possible detached fragment of fallopian tube, 2 AND 3 ? ovary (cassette 2 also contains the polypoid lesion on the surface). Almost 90% of the ovary is submitted. / HIMANSHU:selvin 12/24/17 B - Received in fixative is one container labeled with the patient's name and designated left fallopian tube and ovary. The specimen consists of a fallopian tube and detached ovary. The fallopian tube measures 3 cm in length and 0.5 cm in diameter. The fimbrial end is identified. Sections do not reveal any mass lesion. The soft to cystic ovary measures 3 x 3 x 2.5 cm and weighs 18 gm. The outer surface is smooth without any cut lesion. Almost the entire ovary is replaced by a cyst filled with clear fluid. The cyst wall is smooth and measures up to 0.2 cm in thickness. No mass lesions are identified. Senior Mechanical Design Engineer sections are submitted in three cassettes as follows: 1 ? fallopian tube, 2 AND 3 ? ovary. / SJ: 12/24/17 C - Received in fixative is one container labeled with the patient's name and designated sigmoid colon and appendix. The specimen consists of a previously, partially opened segment of colon measuring 15 cm in length. The serosal surface is congested. One resection margin is open and the other resection margin is stapled. The mucosa shows focal area of bluish discoloration. Also present in the container is an appendix measuring 4.5 cm in length and up to 0.5 cm in diameter. The attached periappendiceal adipose tissue measures up to 1 cm in thickness. Sections of the appendix reveal almost obliterated lumen. The entire appendix is submitted in one cassette, #1. More sections and dictation will follow after additional fixation. / SJ: 12/24/17 Sections reveal multiple diverticula. A few of the diverticula are filled with fecal material. No obviously ruptured diverticula are noted. Blue dye discoloration is noted in the area of the diverticula. Sections of pericolonic adipose tissue reveal multiple lymph nodes. The largest lymph node measures 1.5 cm in greatest dimension. Senior Mechanical Design Engineer sections are submitted in six cassettes as follows: 1 ? appendix, 2 ? resection margin, open resection margin is inked black, 3 AND 4 ? diverticula, 5 ? 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 pericolonic adipose tissue with possible lymph nodes. / SJ: 12/27/17 D - Received in fixative is one container labeled with the patient's name and designated distal donut (rectal). The specimen consists of a donut-shaped piece of colonic tissue measuring 1.5 x 1 x 0.5 cm. No lesion is identified. The specimen is sectioned and submitted entirely in one cassette. / SJ: 12/24/17 E - Received in fixative is one container labeled with the patient's name and designated proximal donut (sigmoid). The specimen consists of a donut-shaped piece of colonic tissue measuring 2 x 1.5 x 0.5 cm. Multiple sutures are noted. Senior Mechanical Design Engineer sections are submitted in one cassette. / SJ:selvin 12/24/17 TC:1 CPT: 14157 x3, 53060 x3 Asia notes a superficial rash on her abdomen, but no rales that she noticed when she got home and started showering. Post operative pain has been well controlled. The patient denies nausea. The patient`s appetite has been improving for the past few days but she still feels she's not eating as much woody. She was prior to surgery. She is noting some liquid bowel movements but has not had solid stool yet. VITALS: Blood pressure 118/74, pulse 68, weight 78.2 kg (172 lb 6.4 oz), last menstrual period 01/07/2011. On examination, the abdominal skin incisions were clean, dry, and intact. The bowel sounds were normal, the abdomen was soft. Assessment IMPRESSION: Status Post laparoscopic low anterior resection for chronic recurring diverticulitis. PLAN: Asia may return to regular activities as tolerated with the exception of no heavy lifting. she may shower and bathe. The patient may now drive as long as she is no longer taking narcotic pain medication. If she notes any difficulties, she should contact me immediately. I discussed with the patient I typically like to perform follow up endoscopy approximately one year after colon resection to assess the anastomotic site. Diagnoses: (R10.30) Lower abdominal pain (primary encounter diagnosis) (K57.30) Diverticulosis of large intestine without perforation or abscess without bleeding Return to Clinic: The patient is instructed to follow- up with me in 1 month. Broderick Ohara MD CNOV Observed: 12/30/2017 Status: COMPLETED Source: [place] 8:00 AM [facility] REPOSITORY Office Visit (GENSWS) ASIA HAWLEY ([id number]) 1960 F Date Time Provider Department 12/30/17 8:00 AM BRODERICK OHARA During your visit today, we recorded the following information about you: Pulse Blood pressure Weight 68/minute 118/74 78.2 kg Broderick Ohara MD 12/30/2017 9:23 AM Signed FOLLOW UP VISIT - POST OP COLON RESECTION NAME: Asia Hawley CLINIC NO.: [id number] DATE OF SERVICE: 12/30/2017 : 1960 REFERRING PHYSICIAN: Priyanka Smith MD Asia is a patient I am following for a complaint of recurring left lower quadrant pain. ? The patient underwent a sigmoid colectomy by Dr. Bar Grace in 2009. This was while the patient was hospitalized with an episode of acute diverticulitis. The patient states she had 6 inches of her colon removed at that time. ? The patient's surgical procedure was December 07, 2009. She underwent sigmoid colectomy for acute perforated diverticulitis. This was done in the emergency procedure. This was performed laparoscopically. A segment of inflamed colon was removed. Due to the fact that a longer rectal stump was left in place. A handsewn anastomosis was performed by Dr. Grace. The patient recalls she was in the hospital for approximately 1 week postoperatively. No mention of leak or other complications were noted, but discharge summary was not able to be obtained. Pathology noted an 8 cm length of sigmoid colon. ? Since that time. The patient is noted one to 2 episodes of diverticulitis and left lower quadrant pain per year. Usually this had resolved with oral antibiotics. ? The patient underwent colonoscopy in 2014 for rectal bleeding which demonstrated diverticulosis in the sigmoid area without other abnormalities. ? The patient presented to Dr. Grace with the above complaints of recurring left lower quadrant pain and likely chronically recurring diverticulitis. The patient since then notes a degree of discomfort and bloating after eating food. She noted discomfort after her bowel prep, which she was able to tolerate the lower volume. Bowel prep of Mirialx/Gatorade and Dulcolax ? CT scan was obtained which demonstrated a 4 cm left ovarian cystic type mass and sigmoid diverticulosis. A barium enema was obtained which demonstrated sigmoid diverticulosis with a few other diverticula throughout the colon and no other specific abnormalities. ? The patient was evaluated by Dr. Valadez for her left ovarian cyst. Ultrasound following the CAT Scan Was Performed at [facility] and demonstrated no abnormal masses in the left or right ovary I performed a laparoscopic low anterior resection and and mobilization of the splenic flexure with appendectomy and bilateral tubal oophorectomy in conjunction with Dr. Valadez on December 22, 2017. The pathology demonstrated: MICROSCOPIC DIAGNOSIS A. Right fallopian tube and ovary: Ovary ? 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 Mesothelial inclusion cysts. Fallopian tube - no pathologic diagnosis. See comment. B. Left fallopian tube and ovary: Ovary - simple serous cystadenoma (3 cm in greatest dimension). Fallopian tube - no pathologic diagnosis. C. Sigmoid colon and appendix: Diverticulosis and diverticulitis. Appendix, no pathologic diagnosis. Pericolonic lymph node with reactive changes. See comment. D. Distal donut (rectal): Colonic donut, no pathologic diagnosis. E. Proximal donut (sigmoid): Colonic donut, no pathologic diagnosis. SJ:selvin 12/28/17 COMMENT A. Calcification is noted in the area of papillary serous cystadenoma and also in the mesothelial inclusion cyst. C. The largest possible lymph node consists of an area of fat necrosis and inflammation. Please make reference to previous specimen ([id number]) sigmoid colon, biopsy with diagnosis of fragments of colonic mucosa with focal changes consistent with ischemic colitis and ([id number]) sigmoid colon, colectomy with diagnosis of diverticulosis and diverticulitis. MICROSCOPIC DESCRIPTION Slides are reviewed. GROSS DESCRIPTION A - Received in fixative is one container labeled with the patient's name and designated right fallopian tube and ovary. The specimen consists of a fallopian tube and ovary. The fallopian tube measures 3 cm in length and 0.6 cm in diameter. The fimbrial end is identified. No tubo- ovarian adhesions are noted. Also present in the container is a detached piece of tubular tissue, a possible portion of fallopian tube, measuring 1 cm in length and 0.3 cm in diameter. The ovary measures 3 x 2 x 0.8 cm. The surface of the ovary shows a polypoid tissue measuring 0.5 cm in greatest dimension. Senior Mechanical Design Engineer sections are submitted in three cassettes as follows: 1 ? fallopian tube and also possible detached fragment of fallopian tube, 2 AND 3 ? ovary (cassette 2 also contains the polypoid lesion on the surface). Almost 90% of the ovary is submitted. / SJ: 12/24/17 B - Received in fixative is one container labeled with the patient's name and designated left fallopian tube and ovary. The specimen consists of a fallopian tube and detached ovary. The fallopian tube measures 3 cm in length and 0.5 cm in diameter. The fimbrial end is identified. Sections do not reveal any mass lesion. The soft to cystic ovary measures 3 x 3 x 2.5 cm and weighs 18 gm. The outer surface is smooth without any cut lesion. Almost the entire ovary is replaced by a cyst filled with clear fluid. The cyst wall is smooth and measures up to 0.2 cm in thickness. No mass lesions are identified. Senior Mechanical Design Engineer sections are submitted in three cassettes as follows: 1 ? fallopian tube, 2 AND 3 ? ovary. / SJ: 12/24/17 C - Received in fixative is one container labeled with the patient's name and designated sigmoid colon and appendix. The specimen consists of a previously, partially opened segment of colon measuring 15 cm in length. The serosal surface is congested. One resection margin is open and the other resection margin is stapled. The mucosa shows focal area of bluish discoloration. Also present in the container is an appendix measuring 4.5 cm in length and up to 0.5 cm in diameter. The attached periappendiceal adipose tissue measures up to 1 cm in thickness. Sections of the appendix reveal almost obliterated lumen. The entire appendix is submitted in one cassette, #1. More sections and dictation will follow after additional fixation. / SJ: 12/24/17 Sections reveal multiple diverticula. A few of the diverticula are filled with fecal material. No obviously ruptured diverticula are noted. Blue dye discoloration is noted in the area of the diverticula. Sections of pericolonic adipose tissue reveal multiple lymph nodes. The largest lymph node measures 1.5 cm in greatest dimension. Senior Mechanical Design Engineer sections are submitted in six cassettes as follows: 1 ? appendix, 2 ? resection margin, open resection margin is inked black, 3 AND 4 ? diverticula, 5 ? 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 pericolonic adipose tissue with possible lymph nodes. / : 12/27/17 D - Received in fixative is one container labeled with the patient's name and designated distal donut (rectal). The specimen consists of a donut-shaped piece of colonic tissue measuring 1.5 x 1 x 0.5 cm. No lesion is identified. The specimen is sectioned and submitted entirely in one cassette. / : 12/24/17 E - Received in fixative is one container labeled with the patient's name and designated proximal donut (sigmoid). The specimen consists of a donut-shaped piece of colonic tissue measuring 2 x 1.5 x 0.5 cm. Multiple sutures are noted. Senior Mechanical Design Engineer sections are submitted in one cassette. / : 12/24/17 TC:1 CPT: 46039 x3, 65374 x3 Asai notes a superficial rash on her abdomen, but no rales that she noticed when she got home and started showering. Post operative pain has been well controlled. The patient denies nausea. The patient`s appetite has been improving for the past few days but she still feels she's not eating as much woody. She was prior to surgery. She is noting some liquid bowel movements but has not had solid stool yet. VITALS: Blood pressure 118/74, pulse 68, weight 78.2 kg (172 lb 6.4 oz), last menstrual period 01/07/2011. On examination, the abdominal skin incisions were clean, dry, and intact. The bowel sounds were normal, the abdomen was soft. Assessment IMPRESSION: Status Post laparoscopic low anterior resection for chronic recurring diverticulitis. PLAN: Asia may return to regular activities as tolerated with the exception of no heavy lifting. she may shower and bathe. The patient may now drive as long as she is no longer taking narcotic pain medication. If she notes any difficulties, she should contact me immediately. I discussed with the patient I typically like to perform follow up endoscopy approximately one year after colon resection to assess the anastomotic site. Diagnoses: (R10.30) Lower abdominal pain (primary encounter diagnosis) (K57.30) Diverticulosis of large intestine without perforation or abscess without bleeding Return to Clinic: The patient is instructed to follow- up with me in 1 month. Broderick Ohara MD Referring Provider: PRIYANKA SMITH [[id number]] Allergies As of Date: 12/30/2017 Noted Allergy Reaction environmental [Other] 12/28/2006 Comments: ? what=congestion HAY FEVER (SEASONAL ALLERGIES) 08/13/2009 ZYRTEC (CETIRIZINE HCL) 08/06/2014 9 - Itching Date Reviewed: 12/30/2017 Reviewed by: Broderick Ohara - Fully Assessed Reason for Visit: Post Op [174] Cmt: Post op Colectomuy Primary Visit Diagnosis:Lower abdominal pain [R10.30] Other Visit Diagnosis:Diverticulosis of large intestine without perforation or abscess without bleeding [K57.30] Prescriptions as of 12/30/2017 Sig: LEVOTHYROXINE 75 MCG TABLET TAKE 1 TABLET ONCE DAILY ON A* MISOPROSTOL 200 MCG TABLET 2 tablets as directed. Take 2* NEOMYCIN 500 MG TABLET Take 2 tablets by mouth four * METRONIDAZOLE 500 MG TABLET Take 1 tablet by mouth three * Patient not taking: Reported on 12/21/2017 ACETAMINOPHEN 325 MG CAPSULE Take by mouth as needed. PROMETHAZINE 12.5 MG TABLET Take 1 tablet by mouth every * * DAILY MULTIVITAMIN TABLET Take one(1) tablet daily. Medication notes this encounter MISOPROSTOL 200 MCG TABLET >> Phong Montaño LPN 12/30/2017 7:50 AM >> PHONG MONTAÑO LPN [facility] Dec 30, 2017 7:50 AM Plesae d/c NEOMYCIN 500 MG TABLET >> Phong Montaño LPN 12/30/2017 7:49 AM >> PHONG MONTAÑO LPN [facility] Dec 30, 2017 7:49 AM Please d/c METRONIDAZOLE 500 MG TABLET >> Phong Montaño LPN 12/30/2017 7:50 AM >> PHONG MONTAÑO LPN [facility] Dec 30, 2017 7:50 AM please d/c Problem List As Of Date 12/30/2017 Noted Resolved Hypothyroidism [E03.9] Abnormal Papanicolaou Smear of Vagina and Vagin* 02/06/2010 Dyspareunia [FIL4782] INVALID FOR*02/06/2010 Fx Sacrum/Coccyx-Closed [S32.10XA, S32.2XXA] INVALID FOR*02/06/2010 Fx Dorsal Vertebra-Closed [S22.009A] INVALID FOR*02/06/2010 Diverticulosis [K57.90] INVALID FOR* Calcaneal spur [M77.30] INVALID FOR*10/01/2017 Hives [L50.9] 10/01/2017 Chronic urticaria [L50.8] INVALID FOR*10/01/2017 Open wound(s) (multiple) of unspecified site(s)*INVALID FOR*10/01/2017 Primary osteoarthritis of first carpometacarpal*INVALID FOR* More... Obesity, Class I, BMI 30-34.9 E66.9 [E66.9] INVALID FOR* GERD (gastroesophageal reflux disease) [K21.9] INVALID FOR* Follow-up and Disposition History Recorded Encounter Status:Closed by BRODERICK OHARA MD on 12/30/17 HISTORY AND PHYSICAL Observed: 12/29/2017 Status: F Source: [place] EXAM 7:38 AM [facility] REPOSITORY [facility] Medical Records Department [address] [place] [id number] History and Physical 12/29/17 0736 MR#: [id number] Acct: [id number] Name: ASIA HAWLEY Rep #: [id number] : 1960 57 From: Daniel Johnson MD PCP: Luis BHATT,Priyanka Status: DIS IN Y Location: [facility] [id number] Problem List (1) History of ureter stent Status: Acute History of Present Illness Date of Admission: 12/23/17 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: stent placement Called in to placed stents, patient asleep. 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 12/29/17 0738 <Electronically signed by Daniel Johnson MD> Date Daniel Johnson MD Cosigner Signature: Date (if applicable) CC: Daniel Johnson MD; Priyanka Smith MD Signed DISCHARGE SUMMARY Observed: 12/26/2017 Status: F Source: [place] 10:04 AM [facility] REPOSITORY [facility] Medical Records Department [address] [place] [address] Discharge Summary 12/26/17 0819 MR#: [id number] Acct: [id number] Name: ASIA HAWLEY Rep #: [id number] : 1960 57 From: Broderick Ohara MD PCP: Priyanka Smith MD Status: DIS IN Y Location: [facility] [id number] Discharge Date and Diagnosis Date of Admission: 12/23/17 Date of Discharge: 12/26/17 - Primary Discharge Diagnosis recurernt diverticulitis Hospital Course and Treatment Summary of Care Provided: The patient is a 57 year old F with chronic recurring diverticulitis and a low rectosigmoid stenosis. I performed a laparoscopic re-do sigmoid colectomy/low anterior resection, splenic flexure mobilization, bilateral salpingo-oophorectomy Patient doing well clinically. Notes pain is improved today since overnight. Only received 1 mg of morphine for pain control overnight on postoperative day 1 and was otherwise only taking oral pain medication-Motrin mildly hypotensive with mildly low urine output on postoperative day 1. Responded to boluses. Clinically felt patient was somewhat dehydrated preoperatively and 5 hour operative case. patient with much improved blood pressure and significant urine output overnight. Urine character is clearing after initially being somewhat bloody. Zepeda catheter were removed. IV fluids be changed to maintenance fluid. Patient has bowel sounds. passing flatus and now bowel movements. tolerated clear liquids overnight. We will advance to full liquids with lean proteins for the next few days and then can advance to regular diet, likely Wednesday or Wednesday Encourage incentive spirometry use to prevent postoperative pulmonary issues. We'll continue SCDs and Lovenox for DVT prophylaxis. Given the fact the patient was in stirrups for 5 hours. we will not discharge her with Lovenox since this is not for malignancy I will plan to follow up in my office morning. Home Medications: Medications to take at Discharge Levothyroxine Sodium [Levoxyl] 75 mcg PO DAILY 09/05/14 Aspirin [Aspirin, Baby] 81 mg PO DAILY@0800 11/16/17 Multivitamin [Daily Multiple Vitamin] 1 each PO DAILY 11/16/17 Omeprazole [Prilosec] 20 mg PO PRN PRN 12/16/17 Ibuprofen [Motrin] 400 mg PO Q4H PRN PRN tablet 12/26/17 Primary Care Physician: Priyanka Smith MD [Primary Care Provider] - Medical Necessity - Tobacco Use Smoking Status: Never smoker Meaningful Use Info Meaningful Use Diagnoses (Choose all that apply): None applicable 12/26/17 1004 <Electronically signed by Broderick Ohara MD> Date Broderick Ohara MD Cosigner Signature (if applicable): Date CC: Priyanka Smith MD; Broderick Ohara MD Signed DISCHARGE INSTRUCTION Observed: 12/26/2017 Status: F Source: [place] 8:21 AM [facility] REPOSITORY [facility] Medical Records Department [address] [place] [address] Instructions for Home/Discharge Instructions 12/26/17818 MR#: [id number] Acct: [id number] Name: ASIA HAWLEY Rep #: [id number] : 1960 57 From: Broderick Ohara MD PCP: Priyanka Smith MD Status: ADM IN You will use the following diet at home:: Other - low residue for 2 days, then advance to regular Discharge Activity: No Restrictions, May Drive, May Shower Call your doctor if your incision/area has: Sudden Increased Bleeding, Increased Pain/ Swelling, Increased Redness Call your doctor if you observe: Fever of 101 or Higher, Coldness, Increased Pain, Inability to urinate, Inability to have a bowel movement Cleanse incision/area with: Soap AND Water Allergies/Adverse Reactions: Allergies cetirizine [From Zyrtec] Allergy (Verified 12/16/17 14:03) Unknown Medications to take at Discharge Levothyroxine Sodium [Levoxyl] 75 mcg PO DAILY 09/05/14 Aspirin [Aspirin, Baby] 81 mg PO DAILY@0800 11/16/17 Multivitamin [Daily Multiple Vitamin] 1 each PO DAILY 11/16/17 Omeprazole [Prilosec] 20 mg PO PRN PRN 12/16/17 Ibuprofen [Motrin] 400 mg PO Q4H PRN PRN tablet 12/26/17 Primary Care Physician: Priyanka Smith MD [Primary Care Provider] - Test Results: Test results from this visit will be discussed in further detail at your follow-up appointment, if applicable. Please Follow Up With: Broderick Ohara MD When: 8am Proposed Discharge Date: 12/26/17 12/26/17820 <Electronically signed by Broderick Ohara MD> Date Broderick Ohara MD CC: Priyanka Smith MD CBC W/DIFF, AUTOMATED Collected: 12/26/2017 Status: F Source: [place] 5:40 AM [facility] REPOSITORY TYPE CODE TESTS RESULT OUT OF RANGE REFERENCE UNITS LAB L100.1000 4.4-11.0 K/mm3 Normal WBC 7.7 LAB L100.1200 4.2-5.4 M/mm3 Low RBC 3.96 LAB L100.1300 12.0-15.0 g/dl Low HGB 11.6 LAB L100.1400 37-47 % Low HCT 33.7 LAB L100.1500 81-99 fL Normal MCV 85.1 LAB L100.1600 27.0-32.0 pg Normal MCH 29.3 LAB L100.1700 32-36 g/gl Normal MCHC 34.4 LAB L100.1810 11.6-14.6 % Normal RDW CV 12.5 LAB L100.1820 35.1-43.9 fl Normal RDW SD 38.0 LAB L100.1900 150-450 K/mm3 Normal PLT 294 LAB L100.2000 6.2-12.0 fl Normal MPV 10.5 LAB L100.2100 47-70 % Normal NEUT% 66.4 LAB L100.2200 19-41 % Normal LY% 23.3 LAB L100.2300 0-10 % Normal MONO% 10.0 LAB L100.2400 0-5 % Normal EO% 0.0 LAB L100.2500 0-1 % Normal BASO% 0.0 LAB L100.2550 0.0-0.9 % Normal IM GRAN % 0.300 Result Comment: IG% - Immature Granulocytes (promyelocytes, myelocytes and metamyelocytes) > 1% indicates that a LEFT SHIFT is Present. LAB L100.2620 2.0-7.7 X10 3/uL Normal Absolute Neut 5.1 LAB L100.2720 0.83-4.51 X10 3/ul Normal Absolute Lymph 1.79 Performed By: #### L100.0100 #### [facility] Laboratory [address] [place], [address] COMPREHENSIVE METABOLIC Collected: 12/26/2017 Status: F Source: [facility] 5:40 AM [facility] REPOSITORY TYPE CODE TESTS RESULT OUT OF RANGE REFERENCE UNITS LAB L501.0100 74-106 mg/dL Normal GLU 102 Result Comment: Fasting Glucose result from 100 to 125 mg/dL suggests IMPAIRED HOMEOSTASIS per A.D.A. criteria. Please note revised GLUCOSE reference range effective 2017. LAB L501.1000 7-18 mg/dL Low BUN 4 LAB L501.1100 0.55-1.02 mg/dL Low CREAT,SERUM 0.49 Result Comment: The validity of the calculated GFR AND GFRAA in patients over 70 years has not been determined. Clinical correlation is essential. LAB L501.1110 >60 mL/min Normal EST GFR 137 Result Comment: Non- GFR Calc LAB L501.1115 >60 mL/min Normal EST GFR - AA 165 Result Comment: GFR Calc LAB L501.1255 ml/min Normal Estimated CRCL 111.24 LAB L501.1300 10-20 RATIO Low BUN/CRE 8.1 LAB L501.1500 6.4-8. g/dL 2 T PROT Normal 6.4 LAB L501.1800 3.2-5. g/dL Low 0 ALB 2.6 LAB L501.1950 2.2-4. g/dL 2 GLOB Normal 3.8 LAB L501.2000 0.9-2. RATIO Low 4 A/G 0.7 LAB L501.2200 8.5-10 mg/dL .1 CA Normal 8.8 LAB L501.4100 15-37 U/L High AST 63 LAB L501.4305 45-117 U/L ALK P Normal 91 LAB L501.4405 13-56 U/L High ALT 88 LAB L501.4600 0.20-1 mg/dL .00 T BILI Normal 0.50 LAB L501.5300 136-14 mmol/L 5 NA Normal 143 LAB L501.5600 3.5-5. mmol/L 1 K Normal 3.9 LAB L501.5900 98-107 mmol/L CL Normal 106 LAB L501.6100 21.0-3 mmol/L 2.0 CO2 Normal 27.0 LAB L501.6200 5-15 GAP Normal 10 Performed By: #### L500.4050, L501.2300, L501.5200 #### [facility] Laboratory [address] [place], [address] PHOSPHORUS Collected: 12/26/2017 Status: F Source: [place] 5:40 AM [facility] REPOSITORY TYPE CODE TESTS RESULT OUT OF RANGE REFERENCE UNITS LAB L501.2300 2.5-4.9 mg/dL Normal PHOS 2.7 Performed By: #### L500.4050, L501.2300, L501.5200 #### [facility] Laboratory [address] [place], [address] MAGNESIUM Collected: 12/26/2017 Status: F Source: [place] 5:40 AM [facility] REPOSITORY TYPE CODE TESTS RESULT OUT OF RANGE REFERENCE UNITS LAB L501.5200 1.6-2.6 mg/dL Normal MG 1.6 Performed By: #### L500.4050, L501.2300, L501.5200 #### [facility] Laboratory [address] [place], [address] CBC W/DIFF, AUTOMATED Collected: 12/24/2017 Status: F Source: [place] 6:08 AM [facility] REPOSITORY TYPE CODE TESTS RESULT OUT OF RANGE REFERENCE UNITS LAB L100.1000 4.4-11.0 K/mm3 Normal WBC 8.2 LAB L100.1200 4.2-5.4 M/mm3 Low RBC 3.55 LAB L100.1300 12.0-15.0 g/dl Low HGB 10.2 LAB L100.1400 37-47 % Low HCT 30.5 LAB L100.1500 81-99 fL Normal MCV 85.9 LAB L100.1600 27.0-32.0 pg Normal MCH 28.7 LAB L100.1700 32-36 g/gl Normal MCHC 33.4 LAB L100.1810 11.6-14.6 % Normal RDW CV 12.7 LAB L100.1820 35.1-43.9 fl Normal RDW SD 38.6 LAB L100.1900 150-450 K/mm3 Normal PLT 231 LAB L100.2000 6.2-12.0 fl Normal MPV 10.2 LAB L100.2100 47-70 % High NEUT% 72.4 LAB L100.2200 19-41 % Low LY% 15.2 LAB L100.2300 0-10 % High MONO% 12.2 LAB L100.2400 0-5 % Normal EO% 0.0 LAB L100.2500 0-1 % Normal BASO% 0.0 LAB L100.2550 0.0-0.9 % Normal IM GRAN % 0.200 Result Comment: IG% - Immature Granulocytes (promyelocytes, myelocytes and metamyelocytes) > 1% indicates that a LEFT SHIFT is Present. LAB L100.2620 2.0-7.7 X10 3/uL Normal Absolute Neut 5.9 LAB L100.2720 0.83-4.51 X10 3/ul Normal Absolute Lymph 1.25 Performed By: #### L100.0100 #### [facility] Laboratory [address] [place], [address] COMPREHENSIVE METABOLIC Collected: 12/24/2017 Status: F Source: [place] [facility] 6:08 AM [facility] REPOSITORY TYPE CODE TESTS RESULT OUT OF RANGE REFERENCE UNITS LAB L501.0100 74-106 mg/dL Normal GLU 97 Result Comment: Please note revised GLUCOSE reference range effective 2017. LAB L501.1000 7-18 mg/dL Normal BUN 7 LAB L501.1100 0.55-1.02 mg/dL Normal CREAT,SERUM 0.92 Result Comment: The validity of the calculated GFR AND GFRAA in patients over 70 years has not been determined. Clinical correlation is essential. LAB L501.1110 >60 mL/min Normal EST GFR 66 Result Comment: Non- GFR Calc LAB L501.1115 >60 mL/min Normal EST GFR - AA 80 Result Comment: GFR Calc LAB L501.1255 ml/min Normal Estimated CRCL 59.25 LAB L501.1300 10-20 RATIO Low BUN/CRE 7.6 LAB L501.1500 6.4-8. g/dL Low 2 T PROT 5.5 LAB L501.1800 3.2-5. g/dL Low 0 ALB 2.3 LAB L501.1950 2.2-4. g/dL Normal 2 GLOB 3.2 LAB L501.2000 0.9-2. RATIO Low 4 A/G 0.7 LAB L501.2200 8.5-10 mg/dL Low .1 CA 8.0 LAB L501.4100 15-37 U/L High AST 50 LAB L501.4305 45-117 U/L Normal ALK P 79 LAB L501.4405 13-56 U/L High ALT 95 LAB L501.4600 0.20-1 mg/dL Normal .00 T BILI 0.60 LAB L501.5300 136-14 mmol/L Normal 5 NA 139 LAB L501.5600 3.5-5. mmol/L Normal 1 K 3.8 LAB L501.5900 98-107 mmol/L Normal CL 103 LAB L501.6100 21.0-3 mmol/L Normal 2.0 CO2 26.0 LAB L501.6200 5-15 Normal GAP 10 Performed By: #### L500.4050 #### [facility] [address] [place], [address] CBC-COMPLETE BLOOD CNT Collected: 12/23/2017 Status: F Source: [place] NO DIFF 7:22 PM [facility] REPOSITORY TYPE CODE TESTS RESULT OUT OF RANGE REFERENCE UNITS LAB L100.1000 4.4-11.0 K/mm3 Normal WBC 10.5 LAB L100.1200 4.2-5.4 M/mm3 Low RBC 3.84 LAB L100.1300 12.0-15.0 g/dl Low HGB 11.1 LAB L100.1400 37-47 % Low HCT 32.9 LAB L100.1500 81-99 fL Normal MCV 85.7 LAB L100.1600 27.0-32.0 pg Normal MCH 28.9 LAB L100.1700 32-36 g/gl Normal MCHC 33.7 LAB L100.1810 11.6-14.6 % Normal RDW CV 12.9 LAB L100.1820 35.1-43.9 fl Normal RDW SD 40.6 LAB L100.1900 150-450 K/mm3 Normal PLT 243 LAB L100.2000 6.2-12.0 fl Normal MPV 10.1 Performed By: #### L100.0500 #### [facility] [address] [place], [address] OPERATIVE REPORT Observed: 12/23/2017 Status: F Source: [place] 7:18 PM [facility] REPOSITORY [facility] [place] [address] Operative Report 12/23/17 1238 MR#: [id number] Acct: [id number] Name: ASIA HAWLEY Rep #: [id number] : 1960 57 From: Broderick Ohara MD PCP: Luis BHATT,Priyanka Status: ADM IN Y Location: MS3 SB680-1 Report of Operation Date of Procedure: 12/23/17 Pre-Operative Diagnosis: (1) Thickened endometrium (2) Persistent left ovarian cysts, LLQ pain, stenosis at 15-20cm on colonoscopy, ? recurrent diverticulitis Post-Operative Diagnosis: (1) Thickened endometrium (2) Persistent left ovarian cysts, LLQ pain, stenosis at 15-20cm on colonoscopy, ? recurrent diverticulitis, area of stenosis distal to anastomosis, normal appendix Surgery/Procedure Performed:: laparoscopic lysis of adhesions, left oopherectomy, right salpingoopherectomy, left salpingectomy, redo laparoscopic sigmoid colectomy/low anterior resection, laparoscopic mobilization of the splenic flexure, laparoscopic appendectomy Description of Surgical Findings:: as above reception specialist: Aniya Wadsworth reception specialist: Lola Grace Type of Anesthesia:: General Anesthesiologist: Heraclio Toth - ASA2 Specimen's removed: left ovary, right tube and ovary, rectosigmoid, left tube, donuts - proximal and distal , appendix Drains: stents - removed - zepeda - 1200 Estimated Blood Loss (mL): 100 Fluids Replaced: 2750 Description of Procedure: The patient was brought to the operating suite. Sign in was performed verifying patient, site, procedure, position, and DVT prophylaxis with SCDs. Patient received Cefotetan 2gm. Preoperative bowel prep of mechanical and antibiotic comprised of GoLYTELY and then neomycin and Flagyl 1 g 3 doses evening before was given. Following induction of general anesthetic, the patient was placed in a modified lithotomy position and care being taken to or by pressure points in the legs and arms. An upper body strap was placed and a upper body warmer was placed. Dr. Fred Johnson was present. He performed cystoscopy and bilateral ureteral catheter placement. this was dictated under separate cover. Dr. Erika Valadez was present. She was planning to perform hysteroscopy and D AND C. Due to a very stenotic cervical os, she could not perform dilation in this part of the procedure was aborted. Following this, a rectal washout was performed with dilute Betadine solution. The patient s abdomen and perineal area were then prepped and draped in the usual fashion. Timeout was performed verifying patient, site, position. Local anesthetic was injected just below the umbilicus. Incision made and dissection carried down to the umbilical root fascia. 2 stay sutures were placed. Incision made in the fascia, the peritoneum entered under direct visualization. A 10 mm Galloway trocar was inserted and secured with the stay sutures. Pneumoperitoneum to 15 mmHg was insufflated. patient was noted to have midline, small bowel adhesions 2 5mm ports were placed in the right lateral area and later in the left paramedian position and a 10/12 port were placed in the right lower quadrant inferior laterally. Adhesions were taken down using Harmonic scalpel. Visual inspection revealed a normal-appearing liver with no significant abnormalities. there were dense adhesions of the sigmoid colon to the right and left pelvis. Initially the areas marked with Ruchi ink by Dr. Grace yesterday were not well visible. These adhesions were taken down sharply and using the Harmonic scalpel. Dr. Valadez was present for this portion of the case. There was planned to perform bilateral salpingo-oophorectomy due to abnormal appearing ovaries on ultrasound. The left ovary was more atypical in appearance than the right. With mobilization of where the sigmoid colon was adherent to the left tubo-ovarian structures, the left ovary was able to be identified, the right tube structures were densely adherent to the lateral peritoneum. This peritoneum and partially removed when the patient had her previous segmental sigmoid resection for acute diverticulitis. due to the degree of inflammation and adhesions and the fact that the iliac vessels could be seen, but the ureter could not clearly be identified, a left oophorectomy was performed by Dr. Valadez and myself, but initially the tube structure was left intact. next, mobilization of the adhesions to the right tube and ovary structures were undertaken. The patient had a previous tubal ligation. The right tube and ovary and the remnant of the tube attached to the uterus proximal to the tubal ligation was fully mobilized and dissected with the Harmonic scalpel. There was some oozing from the area next to the uterus which was controlled with electrocautery. Once both ovaries and the right tube were removed, they were placed into an Endobag and remained in the right abdomen. These were removed. When the incision was made later on in the case to remove the sigmoid colon. Once this was completed, mobilization the avascular plane was undertaken from the ascending colon down to the area of the mid sigmoid. As the patient had undergone a previous segmental sigmoid resection with handsewn anastomosis, there were dense adhesions as described previously towards the left side into the left gutter. However, a window could be seen below the previous resected segment anastomosis. As this window was entered. This allowed mobilization more proximally and then somewhat distally with the colon proximal and distal anastomosis similarly mobilized off of the adhesions to the left pelvic sidewall, leaving the ileocolic residual mesentery in place. As mobilization progressed, the left and right ureters were able to be visualized and manipulated with palpation via the grasper instruments feeling resistance from the catheters assuring that the ureters were intact.. Once this left-sided mobilization was undertaken, dissection carried down to the area posterior to the rectum. there were noted to be very dense adhesions and chronic induration posterior to the area that was marked by Dr. Grace. Her Ruchi ink was clearly identifiable and a thickened chronically inflamed area somewhat distal to the previous anastomosis. Once this was fully mobilized, attention was turned to mobilization of the splenic flexure. Dissection was carried up along the descending colon to the splenic flexure. With great care taken to avoid injury to the splenic flexure, the marginal artery or the spleen itself. Dissection was also carried out dividing the lesser sac at approximately abdominal midline. In freeing up the lesser sac, dividing it with Harmonic scalpel up to and around the splenic flexure. The pancreas was clearly visualized. At this point, the splenic flexure and distal transverse colon were fully mobilized. at this point with good dissection. The pelvis a 60 mm echelon stapler with a thick load was placed and fired to transect the rectum. With full dissection of the mesentery and full mobilization the colon, the umbilical incision was extended and a wound protector placed. The sigmoid colon were delivered through the wound protector. At this point at the planned transection point of the proximal sigmoid colon, the pericolonic were fully mobilized to the margin of the bowel using the harmonic scalpel. The bowel was transected family with a 10 blade scalpel. A 29 mm CEA circular stapler anvil was then placed in the descending colon region and a 2-0 Prolene pursestring suture was used to close the bowel around the anvil. the bowel seemed to tent over the DIAMOND mesentery remnant and the ureter and left tubo-ovarian structure. Harmonic Scalpel was used to divide and dissect this tubo-ovarian structure off of both the left ureter which was clearly identified throughout and the adhesions to the DIAMOND remnant. This allowed for good laying of the descending colon down into the pelvis. At this point, Dr Grace proceeded down to the rectum. Rigid proctoscopy was performed after flooding the pelvis with saline. Insufflation demonstrated no leak at the rectal staple line. The staple line was felt to be approximately 13 cm. Next the 29 CEA stapler was lubricated and placed through the rectum up to the staple line. The spike was then opened just anterior to the previous echelon stapler line and the anvil properly seated onto the stapler and brought down to mid gap. The stapler was fired released and withdrawn from the rectum. The proximal and distal doughnuts were noted to be intact. Repeat proctoscopy was again performed again with the pelvis being flooded with saline. Air left in the rectum with insufflation and there was no intra-abdominal leakage noted. The anastomosis was noted to be at 13 cm from the anal verge I performed an appendectomy dividing the mesoappendix with the Harmonic scalpel and the base of the appendix with the regular load stapler. The appendix was removed the right lower quadrant port site. Pneumoperitoneum was released and the umbilical incision was closed with running 0 PDS sutures with the 2 sutures meeting and closed just above the umbilicus. Pneumoperitoneum was reestablished. The right lower quadrant fascial defect was closed with a running 0 PDS suture. Visual inspection revealed no material adhered to the midline closure. The 5mm ports were removed under direct visualization with no signs of bleeding. Pneumoperitoneum was released. Right lower quadrant fascial suture was secured. Subcutaneous tissue at the level of the umbilicus reapproximated with interrupted 3-0 Vicryl sutures. Skin was closed with interrupted and running 4-0 Monocryl subcuticular sutures. Steri-Strips and bandages were applied. The patient was taken from lithotomy position and placed in the standard supine position. The Zepeda was removed. the ureteral catheters were removed and they were noted to be intact. All sponge and instrument counts were correct. The patient was extubated. The patient was brought to recovery room in stable condition. - Admit VTE Documentation VTE Present on Admission: No VTE Mechan Device Prophylaxis: SCD's VTE Pharm Prophylaxis ordered?: Yes 12/23/171917 <Electronically signed by Broderick Ohara MD> Date Broderick Ohara MD CC: Priyanka Smith MD; Broderick Ohara MD Signed OPERATIVE REPORT Observed: 12/23/2017 Status: F Source: [place] 8:05 AM [facility] REPOSITORY [facility] Medical Records Department [address] [place] [address] Operative Report 12/23/17802 MR#: [id number] Acct: [id number] Name: ASIA HAWLEY Rep #: [id number] : 1960 57 From: Daniel Johnson MD PCP: Priyanka Smith MD Status: ADM IN Y Location: [facility] WD629-2 Report of Operation Date of Procedure: 12/23/17 Pre-Operative Diagnosis: Recurrent diverticulitis stents requested by general surgery Post-Operative Diagnosis: Same Surgery/Procedure Performed:: Cystoscopy and bilateral stent placement Description of Surgical Findings:: 57-year-old female was positioned on the table in dorsal lithotomy position she was under anesthesia the urethra and vaginal area were prepped and draped in usual sterile fashion when the bladder with a 21 Croatian cystourethroscope entire length of the urethra is normal the bladder was normal no tumors or stones seen within the bladder I then cannulated the normal left ureteral orifice and advanced Pollack catheter all the way to the kidney, I then cannulated the right ureteral orifice and advanced the Pollack catheter over to the kidney drain the bladder and put a catheter in and the Pollack catheters were secured to the bag patient was then released to general surgery. Type of Anesthesia:: General Drains: stents - Admit VTE Documentation VTE Present on Admission: No VTE Mechan Device Prophylaxis: SCD's 12/23/17 08 <Electronically signed by Daniel Johnson MD> Date Daniel Johnson MD CC: Daniel Johnson MD; Priyanka Smith MD; Broderick Ohara MD Signed OVARY (CHOOSE SIDE) Observed: 12/23/2017 Status: F Source: [place] 7:15 AM [facility] REPOSITORY Patient: ASIA HAWLEY : 1960 (57/F) Acct Num: [id number] Phys: Broderick Ohara MD Unit Num: [id number] Loc: MS3 QY861-3 Specimen: [id number] Received: 12/24/17 - 1041 Spec Type: OVARY TISSUES TISSUES: A. Right ovary B. Left ovary C. Colon, NOS D. Colon Donuts E. Colon Donuts COMMENT A. Calcification is noted in the area of papillary serous cystadenoma and also in the mesothelial inclusion cyst. C. The largest possible lymph node consists of an area of fat necrosis and inflammation. Please make reference to previous specimen ([id number]) sigmoid colon, biopsy with diagnosis of fragments of colonic mucosa with focal changes consistent with ischemic colitis and ([id number]) sigmoid colon, colectomy with diagnosis of diverticulosis and diverticulitis. GROSS DESCRIPTION A - Received in fixative is one container labeled with the patient's name and designated right fallopian tube and ovary. The specimen consists of a fallopian tube and ovary. The fallopian tube measures 3 cm in length and 0.6 cm in diameter. The fimbrial end is identified. No tubo-ovarian adhesions are noted. Also present in the container is a detached piece of tubular tissue, a possible portion of fallopian tube, measuring 1 cm in length and 0.3 cm in diameter. The ovary measures 3 x 2 x 0.8 cm. The surface of the ovary shows a polypoid tissue measuring 0.5 cm in greatest dimension. Senior Mechanical Design Engineer sections are submitted in three cassettes as follows: 1 fallopian tube and also possible detached fragment of fallopian tube, 2 AND 3 ovary (cassette 2 also contains the polypoid lesion on the surface). Almost 90% of the ovary is submitted. / SJ:selvin 12/24/17 B - Received in fixative is one container labeled with the patient's name and designated left fallopian tube and ovary. The specimen consists of a fallopian tube and detached ovary. The fallopian tube measures 3 cm in length and 0.5 cm in diameter. The fimbrial end is identified. Sections do not reveal any mass lesion. The soft to cystic ovary measures 3 x 3 x 2.5 cm and weighs 18 gm. The outer surface is smooth without any cut lesion. Almost the entire ovary is replaced by a cyst filled with clear fluid. The cyst wall is smooth and measures up to 0.2 cm in thickness. No mass lesions are identified. Senior Mechanical Design Engineer sections are submitted in three cassettes as follows: 1 fallopian tube, 2 AND 3 ovary. / SJ: 12/24/17 C - Received in fixative is one container labeled with the patient's name and designated sigmoid colon and appendix. The specimen consists of a previously, partially opened segment of colon measuring 15 cm in length. The serosal surface is congested. One resection margin is open and the other resection margin is stapled. The mucosa shows focal area of bluish discoloration. Also present in the container is an appendix measuring 4.5 cm in length and up to 0.5 cm in diameter. The attached periappendiceal adipose tissue measures up to 1 cm in thickness. Sections of the appendix reveal almost obliterated lumen. The entire appendix is submitted in one cassette, #1. More sections and dictation will follow after additional fixation. / SJ: 12/24/17 Sections reveal multiple diverticula. A few of the diverticula are filled with fecal material. No obviously ruptured diverticula are noted. Blue dye discoloration is noted in the area of the diverticula. Sections of pericolonic adipose tissue reveal multiple lymph nodes. The largest lymph node measures 1.5 cm in greatest dimension. Senior Mechanical Design Engineer sections are submitted in six cassettes as follows: 1 appendix, 2 resection margin, open resection margin is inked black, 3 AND 4 diverticula, 5 largest lymph node field sales representative section, 6 pericolonic adipose tissue with possible lymph nodes. / SJ: D - Received in fixative is one container labeled with the patient's name and designated distal donut (rectal). The specimen consists of a donut-shaped piece of colonic tissue measuring 1.5 x 1 x 0.5 cm. No lesion is identified. The specimen is sectioned and submitted entirely in one cassette. / SJ: 12/24 E - Received in fixative is one container labeled with the patient's name and designated proximal donut (sigmoid). The specimen consists of a donut-shaped piece of colonic tissue measuring 2 x 1.5 x 0.5 cm. Multiple sutures are noted. Senior Mechanical Design Engineer sections are submitted in one cassette. / SJ:selvin 12/24/17 TC:1 CPT: 77497 x3, 67459 x3 HEADER OPERATION: Redo laparoscopic sigmoid colectomy/low anterior resection PRE-OP DIAGNOSIS: Lower abdominal pain; diverticulosis of large intestine without perforation or abscess without bleeding; nausea TISSUE SUBMITTED: A Right fallopian tube and ovary, B Left fallopian tube and ovary, C Sigmoid colon and appendix, D Distal donut (rectal), E Proximal donut (sigmoid) MICROSCOPIC DESCRIPTION Slides are reviewed. MICROSCOPIC DIAGNOSIS A. Right fallopian tube and ovary: Ovary Papillary serous cystadenoma (0.5 cm in greatest dimension). Mesothelial inclusion cysts. Fallopian tube - no pathologic diagnosis. See comment. B. Left fallopian tube and ovary: Ovary - simple serous cystadenoma (3 cm in greatest dimension). Fallopian tube - no pathologic diagnosis. C. Sigmoid colon and appendix: Diverticulosis and diverticulitis. Appendix, no pathologic diagnosis. Pericolonic lymph node with reactive changes. See comment. D. Distal donut (rectal): Colonic donut, no pathologic diagnosis. E. Proximal donut (sigmoid): Colonic donut, no pathologic diagnosis. SJ:selvin 12/28/17 Signed Sammy Szymanski 12/28/17 <signature on file> Performed By: #### POV #### [facility] [address] [place] [address]. [place], [address] NURSING PROG Observed: 12/22/2017 Status: COMPLETED Source: [place] 11:40 AM [facility] REPOSITORY HNO ID: [id number] Author: Mariam Branham RN Service: (none) Author Type: Registered Nurse Type: Nursing Progress Note Filed: 12/22/2017 12:17 PM Note Text: Patient did not experience a fall prior to discharge. Patient did not experience a burn prior to discharge. Mariam Branham RN NURSING PROG Observed: 12/22/2017 Status: COMPLETED Source: [place] 11:14 AM [facility] REPOSITORY HNO ID: [id number] Author: Mariam Branham RN Service: (none) Author Type: Registered Nurse Type: Nursing Progress Note Filed: 12/22/2017 11:14 AM Note Text: Dr. Grace was by and spoke with both pt and mother. Mariam Branham RN PT ED Observed: 12/22/2017 Status: COMPLETED Source: [place] 11:14 AM [facility] REPOSITORY HNO ID: [id number] Author: Mariam Branham RN Service: (none) Author Type: Registered Nurse Type: Patient Education Filed: 12/22/2017 11:14 AM Note Text: POST OP LEARNING RESPONSE INSTRUCTION PROVIDED TO: Patient and Mother METHOD OF INSTRUCTION: Individual instruction Written instruction - handouts Verbal instruction PATIENT / FAMILY RESPONSE: Verbalizes understanding of: MEDICAL REGIMEN-Importance of following prescribed medical regimen POST-PROCEDURE INSTRUCTIONS-Correct actions to take to reduce post procedure complications WORSENING CONDITION-Signs and symptoms of a worsening condition that warrant a call to the physician FOLLOW-UP PLAN: Patient instructed to call with any further issues Follow up phone call. Contact information given. SUPPLEMENTAL MATERIAL: Procedure discharge instructions REFERRAL (RECOMMENDATION): None Electronically Signed By: Mariam Branham RN In Department: AMBULATORY SURGERY NURSING PROG Observed: 12/22/2017 Status: COMPLETED Source: [place] 11:12 AM [facility] REPOSITORY HNO ID: [id number] Author: Mariam Branham RN Service: (none) Author Type: Registered Nurse Type: Nursing Progress Note Filed: 12/22/2017 11:12 AM Note Text: POST OP LEARNING RESPONSE INSTRUCTION PROVIDED TO: Patient and Mother METHOD OF INSTRUCTION: Individual instruction Written instruction - handouts Verbal instruction PATIENT / FAMILY RESPONSE: Verbalizes understanding of: MEDICAL REGIMEN-Importance of following prescribed medical regimen POST-PROCEDURE INSTRUCTIONS-Correct actions to take to reduce post procedure complications WORSENING CONDITION-Signs and symptoms of a worsening condition that warrant a call to the physician FOLLOW-UP PLAN: Patient instructed to call with any further issues Follow up phone call. Contact information given. SUPPLEMENTAL MATERIAL: Procedure discharge instructions REFERRAL (RECOMMENDATION): None Electronically Signed By: Mariam Branham RN In Department: AMBULATORY SURGERY NURSING PROG Observed: 12/22/2017 Status: COMPLETED Source: [place] 11:08 AM [facility] REPOSITORY HNO ID: [id number] Author: Mariam Branham RN Service: (none) Author Type: Registered Nurse Type: Nursing Progress Note Filed: 12/22/2017 11:09 AM Note Text: POST OP LEARNING RESPONSE INSTRUCTION PROVIDED TO: Patient and Mother METHOD OF INSTRUCTION: Individual instruction Written instruction - handouts Verbal instruction PATIENT / FAMILY RESPONSE: Verbalizes understanding of: MEDICAL REGIMEN-Importance of following prescribed medical regimen POST-PROCEDURE INSTRUCTIONS-Correct actions to take to reduce post procedure complications WORSENING CONDITION-Signs and symptoms of a worsening condition that warrant a call to the physician FOLLOW-UP PLAN: Patient instructed to call with any further issues Follow up phone call. Contact information given. SUPPLEMENTAL MATERIAL: Procedure discharge instructions REFERRAL (RECOMMENDATION): None Electronically Signed By: Mariam Branham RN In Department: AMBULATORY SURGERY NURSING PROG Observed: 12/22/2017 Status: COMPLETED Source: [place] 10:58 AM [facility] REPOSITORY O ID: [id number] Author: Amber (Rn) JUAN Nelson Service: Nursing Author Type: Registered Nurse Type: Nursing Progress Note Filed: 12/22/2017 10:58 AM Note Text: Patient did not experience a fall within the Intraoperative area. Patient did not experience a burn within the Intraoperative area. Amber Nelson RN COLON BIOPSY (CHOOSE Observed: 12/22/2017 Status: F Source: [facility]) 10:50 AM [facility] REPOSITORY Patient: ASIA HAWLEY : 1960 (57/F) Acct Num: [id number] [facility]: [id number] Loc: LABSPEC Specimen: [id number] Received: 12/22/17 - 1203 Spec Type: COLON BX TISSUES TISSUES: Sigmoid colon biopsy COMMENT The results were reported to Dr. Grace on 01/23/18. Please make reference to previous specimen ([id number]) sigmoid colon, colectomy with diagnosis of diverticulosis and diverticulitis. This case has been reviewed in consultation with Dr. Odonnell who concurs with the above diagnosis. GROSS DESCRIPTION Received in fixative is one container labeled with the patient's name and designated sigmoid biopsy. The specimen consists of two pieces of lester soft tissue measuring in aggregate 0.5 x 0.2 x 0.1 cm. The specimen is totally submitted in one cassette. / SJ:selvin 12/22/17 TC:5 CPT: 22243 HEADER OPERATION: Colonoscopy with biopsy PRE-OP DIAGNOSIS: K57.92, R93.3, R10.32, K59.07 TISSUE SUBMITTED: Sigmoid colon biopsy MICROSCOPIC DESCRIPTION Slides are reviewed. MICROSCOPIC DIAGNOSIS Sigmoid colon, biopsy: Fragments of colonic mucosa with focal changes consistent with ischemic colitis. SJ:selvin 12/23/17 Signed Sammy Stephon 12/23/17 <signature on file> Performed By: #### PCOLBX #### [facility] [address] [place], [address] NURSING PROG Observed: 12/22/2017 Status: COMPLETED Source: [place] 10:11 AM [facility] REPOSITORY HNO ID: [id number] Author: Aydin Sparrow) JAUN Chin Service: Nursing Author Type: Registered Nurse Type: Nursing Progress Note Filed: 12/22/2017 10:12 AM Note Text: {[facility] PRE-OP NURSING HAND OFF NOTE SBAR Hand off given to Amber Nelson RN. Hand off was communicated verbally and all questions were answered. FALLS/MENDEZ Patient did not experience a fall within the Preoperative area. Patient did not experience a burn within the Preoperative area. Aydin Chin RN PT ED Observed: 12/22/2017 Status: COMPLETED Source: [place] 9:00 AM [facility] REPOSITORY HNO ID: [id number] Author: Aydin Sparrow) JUAN Chin Service: Nursing Author Type: Registered Nurse Type: Patient Education Filed: 12/22/2017 9:01 AM Note Text: PRE OP LEARNING ASSESSMENT PROCEDURE/SURGERY: GI PROCEDURES: Colonoscopy READINESS TO LEARN COGNITIVE ABILITY: Alert and oriented MOTIVATION TO LEARN: Interested FAMILY SUPPORT: High - Very involved in pt care PATIENT LEARNS BEST BY: Multiple Methods FACTORS AFFECTING LEARNING: None PHYSICAL LIMITATIONS AFFECTING LEARNING: None Electronically Signed By: Aydin Chin RN In Department: AMBULATORY SURGERY CNOP Observed: 12/22/2017 Status: COMPLETED Source: [place] 12:00 AM [facility] REPOSITORY Operative Note (Enc) (GENSWS) Progress Notes: Broderick Ohara MD 12/30/2017 9:14 AM Signed OPERATIVE NOTATION FOR [facility] SURGICAL PROCEDURE. December 22, 2017 Asia Hawley 1960 [id number] female PROCEDURE: Laparoscopic Low Anterior Resection - [id number] and Lap Mobilization of the Splenic Flexure - +[phone], Laparoscopic Lysis of Adhesions - 11594 SURGEON: Anna Ohara M.D. FACS BUCKET PUSHER: [facility] DEPT: ERIC PROVIDER: [id number] Ohara MD POS: [id number] DIAGNOSIS: (K57.30) Diverticulosis of large intestine without perforation or abscess without bleeding (primary encounter diagnosis) (R10.30) Lower abdominal pain ASA CLASS: 2 - mild FINDINGS: COMPLICATIONS: None PMHx - PAST MEDICAL HISTORY Diagnosis Date - Abnormal Papanicolaou smear of vagina and vaginal HPV - Diverticulitis of sigmoid colon 12/07/2009 ACUTE - Diverticulosis of colon (without mention of hemorrhage) - GERD (gastroesophageal reflux disease) 10/01/2017 - Hives - Intramural leiomyoma of uterus - Rectal bleed 09/05/14 - Unspecified hypothyroidism COMORBIDITIES - Obesity Post Op Occurrences - None Wound Classification - Clean Contaminated Operative note dictated in the [facility] dictation system. Broderick Ohara MD Encounter Status:Closed by BRODERICK OHARA MD on 12/30/17 PROGRESS Observed: 12/21/2017 Status: COMPLETED Source: [place] 5:06 PM [facility] REPOSITORY O ID: [id number] Author: Erika Valadez Service: (none) Author Type: Physician Type: Progress Notes Filed: 12/21/2017 5:14 PM Note Text: Asia Hawley is a 57 year old female who presents for pre-op. HPI: Patient presents for pre-op. She denies complaints. PAST MEDICAL HISTORY Diagnosis Date - Abnormal Papanicolaou smear of vagina and vaginal HPV - Diverticulitis of sigmoid colon 12/07/2009 ACUTE - Diverticulosis of colon (without mention of hemorrhage) - GERD (gastroesophageal reflux disease) 10/01/2017 - Hives - Intramural leiomyoma of uterus - Rectal bleed 09/05/14 - Unspecified hypothyroidism PAST SURGICAL HISTORY Procedure Laterality Date - CERVIX UTERI CAUTER CRYOCAUTER 1999 - COLONOSCOP W/ OR W/O [facility] SPEC 04/10/09 - COLONOSCOP W/ OR W/O [facility] SPEC 09/05/14 Repeat 2024 - COLPOSCOPY (VAGINOSCOPY) Multiple starting 1995 Colposcopy - LAPAROSCOPIC HEMICOLECTOMY 12/07/2009 diverticulitis - LIGATE FALLOPIAN TUBE Tubal ligation - PAST SURGICAL HISTORY OF 10/2008 T9-L1 fusion, Dr. Lemon - PAST SURGICAL HISTORY OF 10/24/2009 Removed T9-L1, 2 rods and 8 screws, Dr Lemon - REMOVAL GALLBLADDER Cholecystectomy - REPAIR INTERCARP/CARP-METACARP JT Right 10/13/2017 Right thumb CMC arthroplasty with LRTI FAMILY HISTORY Problem Relation Age of Onset - Hypertension Mother - Thyroid Mother - Heart Father - Hypertension Father - Heart Maternal Grandmother - Stroke Maternal Grandmother - Cancer Maternal Grandmother COLON - Cancer Paternal Grandmother STOMACH Social History Marital status: Spouse name: Years of education: Number of children: 2 Occupational History Occupation Employer Comment [employer] Social History Main Topics Smoking status: Never Smoker Smokeless tobacco: Never Used Comment: No one in household smokes Alcohol use: Yes Comment: Rarely Drug use: No Sexual activity: Yes Partners with: Male control/protection: Tubal Ligation Current Outpatient Prescriptions: neomycin 500 mg tablet Take 2 tablets by mouth four times daily. 2 TABLETS AT 6, 8 ,AND 10 PM levothyroxine (SYNTHROID) 75 mcg tablet TAKE 1 TABLET ONCE DAILY ON AN EMPTY STOMACH FOR THYROID acetaminophen (TYLENOL) 325 mg cap Take by mouth as needed. promethazine (PHENERGAN) 12.5 mg tablet Take 1 tablet by mouth every 6 hours as needed. multivitamins(DAILY MULTIVITAMIN TAB) Take one(1) tablet daily. miSOPROStol (CYTOTEC) 200 mcg tablet 2 tablets as directed. Take 2 tabs the night before AND 2 tabs the morning of the procedure - vaginally. metroNIDAZOLE (FLAGYL) 500 mg tablet Take 1 tablet by mouth three times daily. 2 TABLETS AT 6, 8, AND 10 PM (Patient not taking: Reported on 12/21/2017 ) No current facility-administered medications for this visit. Allergies As of Date: 12/21/2017 Allergen Noted Reaction ENVIRONMENTAL [OTHER] 12/28/2006 HAY FEVER [SEASONAL ALLERGIES] 08/13/2009 ZYRTEC [CETIRIZINE HCL] 08/06/2014 Itching Fully Assessed 12/21/2017 Allergies and current medication updated:Yes EXAM: BP 104/64 Pulse 70 Resp 18 Ht 5' 4.567 (1.64m) Wt 173 lb 12.8 oz (78.8kg) LMP 01/07/2011 BMI 29.31 kg/(m2). GENERAL: pleasant, female in no apparent distress ASSESSMENT AND PLAN: 57yo female with thickened endometrium AND left ovarian cysts Discussed R/B/A of options. Will proceed with hysteroscopy with DANJEROMY. Also possible BSO for persistent left ovarian cysts. Surgery is coordinated with her bowel surgery with AND . Erika Valadez MD HISTORY PHYSICAL Observed: 12/21/2017 Status: COMPLETED Source: [place] 2:58 PM [facility] REPOSITORY HNO ID: [id number] Author: Lola Grace Service: (none) Author Type: Physician Type: HANDP Filed: 12/21/2017 2:58 PM Note Text: Asia Hawley 1960 ? ? REFERRING PHYSICIAN: Priyanka Smith MD ? CHIEF COMPLAINT: Consult (abdominal pain) ? HPI: The patient is a 57 year old female with a complaint of chronic left lower quadrant abdominal pain Had colonoscopy 2015 she states that she was told it was negative. Underwent urgent laparoscopic sigmoid colectomy for diverticulitis with small contained perforation in 2009 Was told that she had 6 inches removed. States that she has had episodes of diverticulitis since surgery - 1-2 per year. States that she has left lower quadrant and suprapubic pain since surgery. Has chronic constipation. Has bowel movement about every other day. Was told to stay away from nuts/popcorn/seeds, etc. Takes mag citrate on regular basis Tried to make an appointment at [facility] and was told that there was nothing that can be done Also noted to have left ovarian cyst, it was recommended by her surgical resident to undergo left salpingo-oopherectomy EGD 08/31/16 - normal ? I ordered ACBE - reveals very redundant colon, with significant diverticular disease of sigmoid and left colon also possible narrowing in this area, also possibility of polyp in right colon I have discussed case with Dr. Ohara and we both agree that patient would benefit from repeat colectomy. Patient is amenable to this. ? ? PAST MEDICAL HISTORY - Abnormal Papanicolaou smear of vagina and vaginal HPV ? - Diverticulitis of sigmoid colon 12/07/2009 ACUTE - Diverticulosis of colon (without mention of hemorrhage) ? - GERD (gastroesophageal reflux disease) 10/01/2017 - Hives ? - Intramural leiomyoma of uterus ? - Rectal bleed 09/05/14 - Unspecified hypothyroidism ? ? PAST SURGICAL HISTORY - CERVIX UTERI CAUTER CRYOCAUTER ? 1999 - COLONOSCOP W/ OR W/O [facility] SPEC ? 04/10/09 - COLONOSCOP W/ OR W/O [facility] SPEC ? 09/05/14 ? Repeat 2024 - COLPOSCOPY (VAGINOSCOPY) ? Multiple starting 1995 ? Colposcopy - LAPAROSCOPIC HEMICOLECTOMY ? 12/07/2009 ? Diverticulitis -perforated - LIGATE FALLOPIAN TUBE ? ? Tubal ligation - PAST SURGICAL HISTORY OF ? 10/2008 ? T9-L1 fusion, Dr. Lemon - PAST SURGICAL HISTORY OF ? 10/24/2009 ? Removed T9-L1, 2 rods and 8 screws, Dr Lemon - REMOVAL GALLBLADDER ? ? - REPAIR INTERCARP/CARP-METACARP JT Right 10/13/2017 ? Right thumb CMC arthroplasty with LRTI ? ? Current Outpatient Prescriptions: levothyroxine (SYNTHROID) 75 mcg tablet TAKE 1 TABLET ONCE DAILY ON AN EMPTY STOMACH FOR THYROID acetaminophen (TYLENOL) 325 mg cap Take by mouth as needed. promethazine (PHENERGAN) 12.5 mg tablet Take 1 tablet by mouth every 6 hours as needed. multivitamins(DAILY MULTIVITAMIN TAB) Take one(1) tablet daily. ASPIRIN 81 MG TAB Take one(1) tablet daily. ? ? ALLERGIES: Environmental [Other]; Hay Fever [Seasonal Allergies]; Zyrtec [Cetirizine Hcl] ? 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 ? FAMILY HISTORY - Hypertension Mother ? - Thyroid Mother ? - Heart Father ? - Hypertension Father ? - Heart Maternal Grandmother ? - Stroke Maternal Grandmother ? - Cancer Maternal Grandmother ?? COLON - Cancer Paternal Grandmother STOMACH ? ? REVIEW OF SYSTEMS: General: The patient denies fatigue, denies weight loss, denies weight gain, denies feeling hot, and denies feelings of cold. Eyes: The patient denies glaucoma, denies eye injury/surgery, wears glasses or contacts. Ear/Nose/Throat: The patient NOTES allergies, NOTES hayfever, denies ear infections, and denies bloody noses. Cardiovascular: The patient denies chest pain, denies heart disease, denies high blood pressure,denies cardiac stent, denies prior heart attack, denies irregular heart beat, denies high cholesterol, denies poor circulation, denies heart failure, other cardiac issues, denies claudication, denies cold feet, denies peripheral arterial stent. Respiratory: The patient denies tuberculosis, denies pneumonia, denies frequent cough, denies pulmonary embolism, denies shortness of breath, and denies coughing up blood. Gastrointestinal: The patient denies difficulty swallowing, denies acid reflux, denies ulcers, denies vomiting, denies jaundice/hepatitis, denies gallbladder problems, denies black or tarry stools, denies hemorrhoids, denies bleeding from rectum, NOTES diverticulitis, NOTES constipation, denies diarrhea, denies loss of stool control, and denies hernias. Kidney/Bladder: The patient denies kidney stones, denies urine infections, and denies bloody urine. Skin: The patient denies a history of skin cancer, denies bleeding/changing moles, and denies a history of skin rash. Neurologic: The patient denies a history of epilepsy/convulsions, denies headaches, denies head/spinal injuries, and denies stroke/TIA. Psychiatric: The patient denies psychiatric medications, denies depression, and denies voices, denies substance abuse. Endocrine: The patient NOTES thyroid disorders, denies diabetes, and denies hormonal problems. Hematologic: The patient denies a history of bruising, denies bleeding, and denies anemia, denies blood clots. Infections: The patient denies a history of measles and mumps, denies rheumatic fever, and denies sexually transmitted diseases. Musculoskeletal: The patient NOTES back pain/injury, denies back problems, denies sciatica, denies knee/foot trouble, NOTES arthritis, or denies gout. ? PHYSICAL EXAMINATION: General: The patient is 57 year old female, well nourished, well hydrated in no acute distress. The patient is oriented to time, place, and person. VITALS: Blood pressure 106/70, pulse 76, temperature 37.1 ?C (98.8 ?F), weight 83.6 kg (184 lb 3.2 oz). Body mass index is 30.65 kg/m?. Head ? Normocephalic. EOM intact with sclera clear and no icterus noted. Wearing glasses. Mouth with mucus membranes moist. Neck - supple with no jugular venous distention noted. Trachea is midline. No carotid bruits noted. No masses noted. Lungs ? clear to auscultation. Normal breath sounds. No rales/rhonchi/wheezing noted. No labored breathing noted, such as retractions. Heart ? normal S1 and S2 auscultated. No rubs/clicks/murmurs noted. Regular rate. Abdomen ? soft and benign. Tender in left lower quadrant and suprapubic area, but no peritoneal signs, normal bowel sounds No masses noted. Extremities ? no calf tenderness noted. No pitting edema noted. . Skin ? normal skin integrity. Neurological ? gait normal, no focal deficits noted Psych ? calm and appropriate ? ? IMPRESSION: chronic left lower quadrant abdominal pain, chronic diveriticulitis, altered bowel habits - chronic constipation ? PLAN: I have discussed the above with the patient. I have discussed case with Dr. Ohara. He and I both agree that despite patient having colonoscopy in 2015, she should have a repeat prior to undergoing surgery. I have counseled patient as to risks of the procedure, including but not limited to: infection, bleeding, perforation of the GI tract, inability to complete the procedure, injury to any internal organs such as liver/spleen, she understands and wishes to proceed. This will be scheduled for her. Of note: the gynecologists have recommended that they be notified as they also wish to proceed with surgery on this patient as stated above. I have answered all questions to the patient?s satisfaction and the patient has no further questions. CNOV Observed: 12/21/2017 Status: COMPLETED Source: [place] 8:10 AM [facility] REPOSITORY Office Visit (WOOB) ASIA HAWLEY ([id number]) 1960 F Date Time Provider Department 12/21/17 8:10 AM ERIKA VALADEZ During your visit today, we recorded the following information about you: Pulse Respiration Blood pressure Weight 70/minute 18/minute 104/64 78.8 kg Height 1.64 m Erika Valadez MD 12/21/2017 5:14 PM Signed Asiayumiko Hawley is a 57 year old female who presents for pre-op. HPI: Patient presents for pre-op. She denies complaints. PAST MEDICAL HISTORY Diagnosis Date - Abnormal Papanicolaou smear of vagina and vaginal HPV - Diverticulitis of sigmoid colon 12/07/2009 ACUTE - Diverticulosis of colon (without mention of hemorrhage) - GERD (gastroesophageal reflux disease) 10/01/2017 - Hives - Intramural leiomyoma of uterus - Rectal bleed 09/05/14 - Unspecified hypothyroidism PAST SURGICAL HISTORY Procedure Laterality Date - CERVIX UTERI CAUTER CRYOCAUTER 1999 - COLONOSCOP W/ OR W/O [facility] SPEC 04/10/09 - COLONOSCOP W/ OR W/O [facility] SPEC 09/05/14 Repeat 2024 - COLPOSCOPY (VAGINOSCOPY) Multiple starting 1995 Colposcopy - LAPAROSCOPIC HEMICOLECTOMY 12/07/2009 diverticulitis - LIGATE FALLOPIAN TUBE Tubal ligation - PAST SURGICAL HISTORY OF 10/2008 T9-L1 fusion, Dr. Lemon - PAST SURGICAL HISTORY OF 10/24/2009 Removed T9-L1, 2 rods and 8 screws, Dr Lemon - REMOVAL GALLBLADDER Cholecystectomy - REPAIR INTERCARP/CARP-METACARP JT Right 10/13/2017 Right thumb CMC arthroplasty with LRTI FAMILY HISTORY Problem Relation Age of Onset - Hypertension Mother - Thyroid Mother - Heart Father - Hypertension Father - Heart Maternal Grandmother - Stroke Maternal Grandmother - Cancer Maternal Grandmother COLON - Cancer Paternal Grandmother STOMACH Social History Marital status: Spouse name: Years of education: Number of children: 2 Occupational History Occupation Employer Comment [employer] Social History Main Topics Smoking status: Never Smoker Smokeless tobacco: Never Used Comment: No one in household smokes Alcohol use: Yes Comment: Rarely Drug use: No Sexual activity: Yes Partners with: Male control/protection: Tubal Ligation Current Outpatient Prescriptions: neomycin 500 mg tablet Take 2 tablets by mouth four times daily. 2 TABLETS AT 6, 8 ,AND 10 PM levothyroxine (SYNTHROID) 75 mcg tablet TAKE 1 TABLET ONCE DAILY ON AN EMPTY STOMACH FOR THYROID acetaminophen (TYLENOL) 325 mg cap Take by mouth as needed. promethazine (PHENERGAN) 12.5 mg tablet Take 1 tablet by mouth every 6 hours as needed. multivitamins(DAILY MULTIVITAMIN TAB) Take one(1) tablet daily. miSOPROStol (CYTOTEC) 200 mcg tablet 2 tablets as directed. Take 2 tabs the night before AND 2 tabs the morning of the procedure - vaginally. metroNIDAZOLE (FLAGYL) 500 mg tablet Take 1 tablet by mouth three times daily. 2 TABLETS AT 6, 8, AND 10 PM (Patient not taking: Reported on 12/21/2017 ) No current facility-administered medications for this visit. Allergies As of Date: 12/21/2017 Allergen Noted Reaction ENVIRONMENTAL [OTHER] 12/28/2006 HAY FEVER [SEASONAL ALLERGIES] 08/13/2009 ZYRTEC [CETIRIZINE HCL] 08/06/2014 Itching Fully Assessed 12/21/2017 Allergies and current medication updated:Yes EXAM: BP 104/64 Pulse 70 Resp 18 Ht 5' 4.567 (1.64m) Wt 173 lb 12.8 oz (78.8kg) LMP 01/07/2011 BMI 29.31 kg/(m2). GENERAL: pleasant, female in no apparent distress ASSESSMENT AND PLAN: 57yo female with thickened endometrium AND left ovarian cysts Discussed R/B/A of options. Will proceed with hysteroscopy with DANDC. Also possible BSO for persistent left ovarian cysts. Surgery is coordinated with her bowel surgery with AND . Erika Vaaldez MD Referring Provider: SELF [[id number]] Allergies As of Date: 12/21/2017 Noted Allergy Reaction environmental [Other] 12/28/2006 Comments: ? what=congestion HAY FEVER (SEASONAL ALLERGIES) 08/13/2009 ZYRTEC (CETIRIZINE HCL) 08/06/2014 9 - Itching Date Reviewed: 12/21/2017 Reviewed by: Erika Valadez - Fully Assessed Reason for Visit: Pre-Op Exam [87] Primary Visit Diagnosis:Thickened endometrium [R93.8] Other Visit Diagnosis:Cyst of left ovary [N83.202] Order(s):miSOPROStol (CYTOTEC) 200 mcg tablet2 tablets as directed. Take 2 tabs the night before AND 2 tabs the morning of the procedure - vaginally.Disp: 4 tabletRfl: 0 Prescriptions as of 12/21/2017 Sig: NEOMYCIN 500 MG TABLET Take 2 tablets by mouth four * LEVOTHYROXINE 75 MCG TABLET TAKE 1 TABLET ONCE DAILY ON A* ACETAMINOPHEN 325 MG CAPSULE Take by mouth as needed. PROMETHAZINE 12.5 MG TABLET Take 1 tablet by mouth every * * DAILY MULTIVITAMIN TABLET Take one(1) tablet daily. MISOPROSTOL 200 MCG TABLET 2 tablets as directed. Take 2* METRONIDAZOLE 500 MG TABLET Take 1 tablet by mouth three * Patient not taking: Reported on 12/21/2017 Problem List As Of Date 12/21/2017 Noted Resolved Hypothyroidism [E03.9] Abnormal Papanicolaou Smear of Vagina and Vagin* 02/06/2010 Dyspareunia [GHN5079] INVALID FOR*02/06/2010 Fx Sacrum/Coccyx-Closed [S32.10XA, S32.2XXA] INVALID FOR*02/06/2010 Fx Dorsal Vertebra-Closed [S22.009A] INVALID FOR*02/06/2010 Diverticulosis [K57.90] INVALID FOR* Calcaneal spur [M77.30] INVALID FOR*10/01/2017 Hives [L50.9] 10/01/2017 Chronic urticaria [L50.8] INVALID FOR*10/01/2017 Open wound(s) (multiple) of unspecified site(s)*INVALID FOR*10/01/2017 Primary osteoarthritis of first carpometacarpal*INVALID FOR* More... Obesity, Class I, BMI 30-34.9 E66.9 [E66.9] INVALID FOR* GERD (gastroesophageal reflux disease) [K21.9] INVALID FOR* Prescriptions ordered this encounter Disp Refills Start End MISOPROSTOL 200 MCG TABLET 4 ta* 0 12/21/2017 Route: OTHER Si tablets as directed. Take 2 tabs the night before AND 2 tabs the morning of the procedure - vaginally. Medications Discontinued During This Encounter ASPIRIN 81 MG TAB 0 01/18/2009 12/21/2017 Class: OTC Route: ORAL Sig: Take one(1) tablet daily. Disc: Discontinued by Patient Follow-up and Disposition History Recorded Encounter Status:Closed by ERIKA VALADEZ MD on 12/21/17 12 LEAD ELECTROCARDIOGRAM Observed: 12/20/2017 Status: F Source: [place] 2:34 PM [facility] REPOSITORY [facility] Cardiovascular Services [address] [place] [address] [place] [address] EKG - [facility] [place] 12/16/171326 MR#: [id number] Acct: [id number] Name: ASIA HAWLEY Rep #: [id number] : 1960 57 From: Jacek Barton MD Attending Dr: Broderick Ohara MD Status: PRE IN Ordering Dr: Heraclio Toth MD Date: 12/16/17 Location: [facility] Sex: F C Admitted: Test Reason : Blood Pressure : / mmHG Vent. Rate : 063 BPM Atrial Rate : 063 BPM P-R Int : 170 ms QRS Dur : 084 ms QT Int : 412 ms P-R-T Axes : 033 -10 037 degrees QTc Int : 421 ms Normal sinus rhythm Nonspecific T wave abnormality Confirmed by SAMRA BHATT, JACEK ([id number]), visual effects editor ANI ROMERO ([id number]) on 12/20/2017 2:34:10 PM Referred By: Broderick Ohara Confirmed By:JACEK BARTON MD 12/20/17 1434 Date Jacek Barton MD CC: Heraclio Toth MD; Priyanka Smith MD; Broderick Ohara MD Date Dictated: 08/07/04 1326 Date Transcribed: 12/16/171326 Manager Statistical Programming: Signed PROGRESS Observed: 12/16/2017 Status: COMPLETED Source: [place] 11:19 AM CLINIC OTHER CAMPUS REPOSITORY [facility] ID: [id number] Author: Monika (Ot) Joseph Service: (none) Author Type: Occupational Therapist Type: Progress Notes Filed: 12/16/2017 12:04 PM Note Text: Episode Visit Count: 3 Therapist That Will Oversee The Plan Of Care: Monika Romero Start of Care Date: 11/23/17 Onset Date: 10/13/17 Patient Identified by Name and Date of : Yes REHABILITATION AND SPORTS THERAPY OCCUPATIONAL THERAPY DISCONTINUANCE OF CARE PLAN OF CARE UPDATE: Assessment: Asia Hawley is discontinued from Occupational Therapy services due to goal achievement and maximal benefit.. Patient was seen for 3 visits from Start of Care Date: 11/23/17 to 12/16/2017 and treatment included: Therapeutic exercise, Manual therapy and Modalities. Goals for Episode of Care created on 11/23/17 through 02/23/18 Patient will report a good understanding of diagnosis and OT recommendations for progression of program MET Patient will demonstrate independence with ongoing home exercise program MET Patient will increase AROM of right thumb MP and IP flexion to 40 degrees each in order to be able to cone picker small items. MET Patient will independently demonstrate correct application of wrist and thumb orthosis and verbalize understanding of proper wear/care by end of session.MET Patient will report a good understanding of edema control techniques MET Patient will report a good understanding of the use of modalities to help manage discomfort and promote healing MET Patient will independently demonstrate scar massage/management in order to decrease scar adherence by discharge MET Patient will have functional strength for independence in all daily activities MET SUBJECTIVE: Pt reports she is able to perform all functional activities but some tasks now take longer Pain Score: 0/10 Pain Location: Wrist - Right;Thumb - Right Description: Stiffness Frequency: Intermittent Post Treatment Pain Score: 0/10 Pain Location: Wrist - Right;Thumb - Right Post Treatment Pain Description: Stiffness OBJECTIVE MEASURES WITH LEVEL OF FUNCTION: Hand Evaluation Strength: Dynamometer / Cognos Bi Developer;Pinch Meter R Cognos Bi Developer Position 2 (lbs): 25 lbs R Lateral Pinch (lbs): 6.5 lbs R Tripod Pinch (lbs): 4 lbs R Tip Pinch (lbs): 4.5 lbs Hand AROM R Thumb MP Flexion : 54 Degrees R Thumb IP Flexion : 55 Degrees R Thumb Radial Abduction: 70 Degrees R Thumb Palmar Abduction: 80 Degrees UE AROM R Forearm Supination: 90 Degrees R Forearm Pronation: 85 Degrees R Wrist Extension: 55 Degrees R Wrist Flexion: 55 Degrees R Wrist Radial Deviation: 20 Degrees R Wrist Ulnar Deviation: 25 Degrees TREATMENT: Therapeutic Exercise: 1: wrist flex/ext, dev sup pro x 10 2: thumb flex ext, palamr and radial abduction and opposition 3: medium soft putty collar feller digit extension roll, digit flexion and tripod pinch x 10 4: 2# weight wrist flexion, extension deviation and sup/pro x 10 5: reviewed progression of home program Skilled Intervention: Patient was educated in proper exercise technique and purpose for exercises. Skilled judgment was provided in selection of appropriate interventions. Modalities: Fluidotherapy Body Region Treated - Fluidotherapy: right hand Patient Position: seated Temperature: 110 Minute(s): 10 Activity 1: AROM See flowsheet for details regarding treatment. Skilled Intervention: Proper administration and selection of modality based on clinical presentation, deficits, and needs. Patient response monitored throughout treatment. Billing: Lisa: Therapeutic Exercise (99276): 1:1 time:30 minutes (2 units: 23-37 mins) Fluidotherapy (09047) 1 unit(s) Total time: 40 minutes Monika Romero OT/ALETHA CNTHERAPY Observed: 12/16/2017 Status: COMPLETED Source: [facility] 11:00 AM [facility]IC OTHER CAMPUS REPOSITORY OT/PT/Speech Visit (OTC) ASIA HAWLEY ([id number]) 1960 F Date Time Provider Department 12/16/17 11:00 AM MONIKA ROMERO (RINKU) [facility] Date Time Provider Department Center 12/16/2017 11:00 AM [id number] Visit: OT Discharge [750] Primary Visit Diagnosis:Primary osteoarthritis of first carpometacarpal joint of right hand [M18.11] Allergies As of Date: 12/16/2017 Noted Allergy Reaction environmental [Other] 12/28/2006 Comments: ? what=congestion HAY FEVER (SEASONAL ALLERGIES) 08/13/2009 ZYRTEC (CETIRIZINE HCL) 08/06/2014 9 - Itching Date Reviewed: 12/15/2017 Reviewed by: Raul Clifton - Fully Assessed Prescriptions as of 12/16/2017 Sig: NEOMYCIN 500 MG TABLET Take 2 tablets by mouth four * METRONIDAZOLE 500 MG TABLET Take 1 tablet by mouth three * LEVOTHYROXINE 75 MCG TABLET TAKE 1 TABLET ONCE DAILY ON A* ACETAMINOPHEN 325 MG CAPSULE Take by mouth as needed. PROMETHAZINE 12.5 MG TABLET Take 1 tablet by mouth every * * DAILY MULTIVITAMIN TABLET Take one(1) tablet daily. * ASPIRIN 81 MG TABLET Take one(1) tablet daily. Progress Notes: Monika Romero OT/L 12/16/2017 12:04 PM Signed Episode Visit Count: 3 Therapist That Will Oversee The Plan Of Care: Monika Romero Start of Care Date: 11/23/17 Onset Date: 10/13/17 Patient Identified by Name and Date of : Yes REHABILITATION AND SPORTS THERAPY OCCUPATIONAL THERAPY DISCONTINUANCE OF CARE PLAN OF CARE UPDATE: Assessment: Asia Hawley is discontinued from Occupational Therapy services due to goal achievement and maximal benefit.. Patient was seen for 3 visits from Start of Care Date: 11/23/17 to 12/16/2017 and treatment included: Therapeutic exercise, Manual therapy and Modalities. Goals for Episode of Care created on 11/23/17 through 02/23/18 Patient will report a good understanding of diagnosis and OT recommendations for progression of program MET Patient will demonstrate independence with ongoing home exercise program MET Patient will increase AROM of right thumb MP and IP flexion to 40 degrees each in order to be able to cone picker small items. MET Patient will independently demonstrate correct application of wrist and thumb orthosis and verbalize understanding of proper wear/care by end of session.MET Patient will report a good understanding of edema control techniques MET Patient will report a good understanding of the use of modalities to help manage discomfort and promote healing MET Patient will independently demonstrate scar massage/management in order to decrease scar adherence by discharge MET Patient will have functional strength for independence in all daily activities MET SUBJECTIVE: Pt reports she is able to perform all functional activities but some tasks now take longer Pain Score: 0/10 Pain Location: Wrist - Right;Thumb - Right Description: Stiffness Frequency: Intermittent Post Treatment Pain Score: 0/10 Pain Location: Wrist - Right;Thumb - Right Post Treatment Pain Description: Stiffness OBJECTIVE MEASURES WITH LEVEL OF FUNCTION: Hand Evaluation Strength: Dynamometer / Cognos Bi Developer;Pinch Meter R Cognos Bi Developer Position 2 (lbs): 25 lbs R Lateral Pinch (lbs): 6.5 lbs R Tripod Pinch (lbs): 4 lbs R Tip Pinch (lbs): 4.5 lbs Hand AROM R Thumb MP Flexion : 54 Degrees R Thumb IP Flexion : 55 Degrees R Thumb Radial Abduction: 70 Degrees R Thumb Palmar Abduction: 80 Degrees UE AROM R Forearm Supination: 90 Degrees R Forearm Pronation: 85 Degrees R Wrist Extension: 55 Degrees R Wrist Flexion: 55 Degrees R Wrist Radial Deviation: 20 Degrees R Wrist Ulnar Deviation: 25 Degrees TREATMENT: Therapeutic Exercise: 1: wrist flex/ext, dev sup pro x 10 2: thumb flex ext, palamr and radial abduction and opposition 3: medium soft putty collar feller digit extension roll, digit flexion and tripod pinch x 10 4: 2# weight wrist flexion, extension deviation and sup/pro x 10 5: reviewed progression of home program Skilled Intervention: Patient was educated in proper exercise technique and purpose for exercises. Skilled judgment was provided in selection of appropriate interventions. Modalities: Fluidotherapy Body Region Treated - Fluidotherapy: right hand Patient Position: seated Temperature: 110 Minute(s): 10 Activity 1: AROM See flowsheet for details regarding treatment. Skilled Intervention: Proper administration and selection of modality based on clinical presentation, deficits, and needs. Patient response monitored throughout treatment. Billing: Lisa: Therapeutic Exercise (11497): 1:1 time:30 minutes (2 units: 23-37 mins) Fluidotherapy (75708) 1 unit(s) Total time: 40 minutes Monika Romero OT/DYLAN PROGRESS Observed: 12/13/2017 Status: COMPLETED Source: [facility] 10:35 AM [facility] REPOSITORY HNO ID: [id number] Author: Cleo Mcqueen Service: (none) Author Type: Supervisor [employer] Type: Progress Notes Filed: 12/13/2017 10:35 AM Note Text: Radiology Service Progress Note PATIENT NAME: Asia Hawley DATE OF SERVICE: December 13, 2017 TIME: 10:35 AM PATIENT IDENTITY VERIFICATION COMPLETED USING TWO (2) METHODS: Patient confirmed name verbally and Date of . PATIENT GENDER DATA: Female. status: : No status: N/A PATIENT RELEVANT IMPLANT DATA REVIEWED: Not Applicable RADIOLOGY DEPARTMENT: Ultrasound PERIPHERAL IV DATA: Not applicable SIGNED BY: CLEO MCQUEEN RDMS RVFrida December 13, 2017 10:35 AM US FEMALE PELVIS Observed: 12/13/2017 Status: F Source: [facility]A 10:34 AM [facility] REPOSITORY * * *Final Report* * * DATE OF EXAM: Dec 13 2017 10:34AM U 1060 - US FEMALE PELVIS TRANSVAG / PROCEDURE REASON: Unspecified ovarian cyst, unspecified side * * * * Physician Interpretation * * * * EXAMINATION: US FEMALE PELVIS TRANSVAG CLINICAL HISTORY: Fibroid. Left ovarian cyst Comparison: 08/15/2009 RESULT: The uterus measures 8.8 x 5.9 x 3.3 cm. The endometrium measures 0.7 cm. Solid focus within the endometrium of 0.5 x 0.7 x 0.4 cm may represent submucosal fibroid. Similar to the prior study. Lower uterine segment fibroid of 1.2 x 1.5 x 1.1 cm is noted. No free pelvic fluid is seen. Right ovary is not visualized with the transabdominal or endovaginal probes. Left ovary measures 3.7 x 3.9 x 2.8 cm. 2 simple cysts are seen within it. These measure 3.4 x 3 x 2.6 cm, and 1.3 x 1.4 x 0.9 cm. IMPRESSION: Thick endometrium for a postmenopausal patient. Additionally, probable submucosal fibroid is present. Further evaluation recommended. Additional uterine fibroid as described. Nonvisualization of the right ovary. 2 simple appearing left ovarian cysts. These are unusual in a postmenopausal patient, however, and follow-up ultrasound in 6-12 weeks recommended. Manager Statistical Programming: JUAN Transcribe Date/Time: Dec 13 2017 2:28P Dictated by : CYNTHIA ALAS MD This examination was interpreted and the report reviewed and electronically signed by: CYNTHIA ALAS MD on Dec 13 2017 2:43PM EST [id number] [id number] Observed: 12/13/2017 Status: COMPLETED Source: [place] 10:33 AM [facility] REPOSITORY O ID: [id number] Author: Raul Clifton Service: (none) Author Type: Physician Type: Progress Notes Filed: 12/13/2017 10:40 AM Note Text: Raul Clifton MD Department of Orthopaedics Orthopaedics [address] [facility] [address] Dept: [phone] Dept December 13, 2017 CHIEF COMPLAINT: Recheck (8 weeks 5 days post CMC arthroplasty with LRTI). ASSESSMENT: M18.11 Primary osteoarthritis of first carpometacarpal joint of right hand (primary encounter diagnosis) SUMMARY/PLAN: patient is a half weeks status post CMC arthroplasty of right thumb. she is doing very well and really has no pain. She has little bit sore in the thumb, appropriately. She is gaining her strength back. The IP joint is a bit sore for her as well. She can continue her occupational therapy which she is finishing up. Activities as tolerated. follow-up as needed Supporting Information Below: Medications: Current Outpatient Prescriptions: neomycin 500 mg tablet Take 2 tablets by mouth four times daily. 2 TABLETS AT 6, 8 ,AND 10 PM metroNIDAZOLE (FLAGYL) 500 mg tablet Take 1 tablet by mouth three times daily. 2 TABLETS AT 6, 8, AND 10 PM acetaminophen (TYLENOL) 325 mg cap Take by mouth as needed. promethazine (PHENERGAN) 12.5 mg tablet Take 1 tablet by mouth every 6 hours as needed. multivitamins(DAILY MULTIVITAMIN TAB) Take one(1) tablet daily. ASPIRIN 81 MG TAB Take one(1) tablet daily. levothyroxine (SYNTHROID) 75 mcg tablet TAKE 1 TABLET ONCE DAILY ON AN EMPTY STOMACH FOR THYROID No current facility-administered medications for this visit. Allergies: Environmental [Other]; Hay Fever [Seasonal Allergies]; Zyrtec [Cetirizine Hcl] This note was partially generated using [employer] voice recognition system, and there may be some incorrect words, spellings, and punctuation that were not noted in checking the note before saving. Raul Clifton MD PROGRESS Observed: 12/13/2017 Status: COMPLETED Source: [place] 8:47 AM [facility] REPOSITORY HNO ID: [id number] Author: Jessa Parson RN Service: (none) Author Type: (none) Type: Progress Notes Filed: 12/13/2017 10:40 AM Note Text: AMB ROOMING INTAKE FLOWSHEET DATA Risk Screening Do you have concerns about personal safety or safety in the home?: No Patient presents with: Recheck: 8 weeks 5 days post CMC arthroplasty with LRTI Pt. having no pain of hand and has last OT session this week. She is scheduled for bowel resection next week, so has other concerns. CNOV Observed: 12/13/2017 Status: COMPLETED Source: [place] 8:30 AM [facility] REPOSITORY Office Visit (ORTHWS) ASIA HAWLEY ([id number]) 1960 F Date Time Provider Department 12/13/17 8:30 AM RAUL CLIFTON During your visit today, we recorded the following information about you: Jessa Parson RN 12/13/2017 10:40 AM Signed AMB ROOMING INTAKE FLOWSHEET DATA Risk Screening Do you have concerns about personal safety or safety in the home?: No Patient presents with: Recheck: 8 weeks 5 days post CMC arthroplasty with LRTI Pt. having no pain of hand and has last OT session this week. She is scheduled for bowel resection next week, so has other concerns. Raul Clifton MD 12/13/2017 10:40 AM Signed Raul Clifton MD Department of Orthopaedics Orthopaedics [address] [place] [id number] Dept: [phone] Dept December 13, 2017 CHIEF COMPLAINT: Recheck (8 weeks 5 days post CMC arthroplasty with LRTI). ASSESSMENT: M18.11 Primary osteoarthritis of first carpometacarpal joint of right hand (primary encounter diagnosis) SUMMARY/PLAN: patient is a half weeks status post CMC arthroplasty of right thumb. she is doing very well and really has no pain. She has little bit sore in the thumb, appropriately. She is gaining her strength back. The IP joint is a bit sore for her as well. She can continue her occupational therapy which she is finishing up. Activities as tolerated. follow-up as needed Supporting Information Below: Medications: Current Outpatient Prescriptions: neomycin 500 mg tablet Take 2 tablets by mouth four times daily. 2 TABLETS AT 6, 8 ,AND 10 PM metroNIDAZOLE (FLAGYL) 500 mg tablet Take 1 tablet by mouth three times daily. 2 TABLETS AT 6, 8, AND 10 PM acetaminophen (TYLENOL) 325 mg cap Take by mouth as needed. promethazine (PHENERGAN) 12.5 mg tablet Take 1 tablet by mouth every 6 hours as needed. multivitamins(DAILY MULTIVITAMIN TAB) Take one(1) tablet daily. ASPIRIN 81 MG TAB Take one(1) tablet daily. levothyroxine (SYNTHROID) 75 mcg tablet TAKE 1 TABLET ONCE DAILY ON AN EMPTY STOMACH FOR THYROID No current facility-administered medications for this visit. Allergies: Environmental [Other]; Hay Fever [Seasonal Allergies]; Zyrtec [Cetirizine Hcl] This note was partially generated using [employer] voice recognition system, and there may be some incorrect words, spellings, and punctuation that were not noted in checking the note before saving. Raul Clifton MD Referring Provider: RAUL CLIFTON [[id number]] Allergies As of Date: 12/13/2017 Noted Allergy Reaction environmental [Other] 12/28/2006 Comments: ? what=congestion HAY FEVER (SEASONAL ALLERGIES) 08/13/2009 ZYRTEC (CETIRIZINE HCL) 08/06/2014 9 - Itching Date Reviewed: 12/13/2017 Reviewed by: Raul Clifton - Fully Assessed Reason for Visit: Recheck [92] Cmt: 8 weeks 5 days post CMC arthroplasty with LRTI Primary Visit Diagnosis:Primary osteoarthritis of first carpometacarpal joint of right hand [M18.11] Prescriptions as of 12/13/2017 Sig: NEOMYCIN 500 MG TABLET Take 2 tablets by mouth four * METRONIDAZOLE 500 MG TABLET Take 1 tablet by mouth three * ACETAMINOPHEN 325 MG CAPSULE Take by mouth as needed. PROMETHAZINE 12.5 MG TABLET Take 1 tablet by mouth every * * DAILY MULTIVITAMIN TABLET Take one(1) tablet daily. * ASPIRIN 81 MG TABLET Take one(1) tablet daily. LEVOTHYROXINE 75 MCG TABLET TAKE 1 TABLET ONCE DAILY ON A* Problem List As Of Date 12/13/2017 Noted Resolved Hypothyroidism [E03.9] Abnormal Papanicolaou Smear of Vagina and Vagin* 02/06/2010 Dyspareunia [ICH8778] INVALID FOR*02/06/2010 Fx Sacrum/Coccyx-Closed [S32.10XA, S32.2XXA] INVALID FOR*02/06/2010 Fx Dorsal Vertebra-Closed [S22.009A] INVALID FOR*02/06/2010 Diverticulosis [K57.90] INVALID FOR* Calcaneal spur [M77.30] INVALID FOR*10/01/2017 Hives [L50.9] 10/01/2017 Chronic urticaria [L50.8] INVALID FOR*10/01/2017 Open wound(s) (multiple) of unspecified site(s)*INVALID FOR*10/01/2017 Primary osteoarthritis of first carpometacarpal*INVALID FOR* More... Obesity, Class I, BMI 30-34.9 E66.9 [E66.9] INVALID FOR* GERD (gastroesophageal reflux disease) [K21.9] INVALID FOR* Encounter Status:Closed by RAUL CLIFTON MD on 12/13/17 SURGICAL PATHOLOGY Observed: 12/10/2017 Status: F Source: [place] 12:06 PM [facility] REPOSITORY Specimen originated from [facility] Specimen #: [id number] Submitting Physician: ERIKA VALADEZ MD FINAL DIAGNOSIS 1. Cervix, 3 o'clock, 6 o'clock, 9 o'clock, 12 o'clock, multiple biopsies (A,B,C,D) - Chronic cervicitis, negative for neoplasm. 2. Endocervix, curettage (E) - Benign endocervix, negative for neoplasm. CVB/srmaulik 12/14/2017 Nnamdi Roth M.D. (Electronic Signature) SPECIMEN SUBMITTED A: CERVIX, BIOPSY 3:00 B: CERVIX, BIOPSY 6:00 C: CERVIX, BIOPSY 9:00 D: CERVIX, BIOPSY 12:00 E: ENDOCERVICAL, CURETTINGS CLINICAL DATA positive HRHPV GROSS DESCRIPTION A. Received in formalin is one piece of lester, soft tissue measuring 0.3 x 0.2 x 0.2 cm. Totally submitted in one cassette. B. Received in formalin is one piece of lester, soft tissue measuring 0.5 x 0.2 x 0.1 cm. Totally submitted in one cassette. C. Received in formalin is one piece of lester, soft tissue measuring 0.1 x 0.1 x 0.1 cm. Totally submitted in one cassette. D. Received in formalin is one piece of lester, soft tissue measuring 0.3 x 0.2 x 0.1 cm. Totally submitted in one cassette. E. Received in formalin are multiple lester, soft mucinous segments of tissue aggregating to 1.0 x 0.1 by less than 0.1 cm. Totally submitted in one cassette. May not survive processing. Gross examination performed at [facility], [address] [place] [address] 12/11/2017 12:36:36 AM Date of Report: 12/14/2017 Date of Procedure: 12/10/2017 Date of Receipt: 12/10/2017 Submitted by: ERIKA VALADEZ MD Location: [facility] Diagnostic interpretation performed at [place] [address]. CNOV Observed: 12/10/2017 Status: COMPLETED Source: [place] 11:30 AM [facility] REPOSITORY Office Visit (WOOB) ASIA HAWLEY ([id number]) 1960 F Date Time Provider Department 12/10/17 11:30 AM ERIKA VALADEZ During your visit today, we recorded the following information about you: Blood pressure Weight 112/74 81.2 kg Erika Valadez MD 12/10/2017 12:06 PM Signed Asia Hawley is a 57 year old female who presents today for a colposcopy. Her last pap smear was Positive HPV fand normal pap rom November 2017. Patient has a history of abnormal pap: Yes. She has had prior treatment: cryo. test: n/a UNIVERSAL PROTOCOL / SAFETY CHECKLIST Procedure to be performed: Colposcopy with possible biopsy Sign in Communication: Completed Time Out: Team Confirms the Correct Patient, Correct Procedure, Correct Site and Site Marking, Correct Position (if applicable), Prep and Dry Time (if applicable). Time: 11:50 Affirmation of Time Out: YES Sign Out Discussion: Completed PROCEDURE: EXTERNAL GENITALIA: Normal in appearance without lesions VAGINA: Normal in appearance without lesions CERVIX: Speculum placed in vagina and excellent visualization of cervix achieved. Cervix swabbed x 3 with 3% acetic acid solution. Cervix grossly normal. Squamocolumnar junction not visualized. No acetowhite changes, punctations, mosaicism or atypical vasculature noted. BIOPSY: Done at 3:00, 6:00, 9:00 and 12:00 ECC: done HEMOSTASIS: Obtained with silver nitrate and pressure Procedure Summary: Patient tolerated procedure well. ASSESSMENT: Normal pap with positive hpv PLAN: Specimens labeled and sent to Pathology. Will notify patient of results in 1-2 weeks. Post-procedure instructions reviewed and written material given to the patient. MD Clementina Kong Ks 12/10/2017 11:23 AM Signed YOUR RECOVERY It may take a few weeks for your cervix to heal. While your cervix heals, you may have: - Vaginal bleeding (less than a normal menstrual period) - Mild cramping - A brown-black vaginal discharge (similar to coffee grounds) which is a result of the paste used to help stop bleeding from the procedure Do NOT put anything in the vagina for 1 week after your colposcopy if your doctor does a biopsy of your cervix. This includes sex, tampons, and douches. If you have any discomfort, you may take an over the counter pain medication (motrin, advil, ibuprofen, tylenol, etc). If this does not relieve your discomfort, contact your doctor's office for a prescription strength pain medication. It is okay to wear a sanitary pad until the discharge and spotting stops. RISKS Although problems seldom occur with colposcopy, there can be some complications. You may feel faint during and shortly after the procedure as well as have some bleeding and vaginal discharge after the procedure. There is also a risk of infection after the procedure. These complications are rare and can be easily treated. You should contact you doctor is you have any of the following: - Heavy bleeding (more than your normal period) - Bleeding with clots - Severe abdominal pain - Fever (more than 100.4F) - Foul smelling vaginal discharge RESULTS If a biopsy was taken, we will have the results of your biopsy in 1-2 weeks. If you do not hear the results of your biopsy after 2 weeks, please contact your physicians office for the results. Depending on the biopsy results, your doctor will determine your follow up plan which may include further testing or treatments. STAYING HEALTHY After the procedure, you will need to see your doctor for follow up visits during the year. At these visits your doctor will check the health of your cervix with a pap smear. After three normal pap smears, your doctor will allow you to return to having exams once a year. If you have another abnormal pap smear, you may need closer follow up for longer or you may need additional treatment. By making a few lifestyle changes after the procedure, you can help protect the health of your cervix: - Have regular pelvic exams and pap smears as ordered by your doctor. - Stop smoking as smoking increases your risk of developing a cancer of the cervix - If you have more than one sexual partner, limit your number of partners and use condoms to reduce your risks of STDs. If you have any additional questions, please contact your doctor's office. Referring Provider: SELF [[id number]] Allergies As of Date: 12/10/2017 Noted Allergy Reaction environmental [Other] 12/28/2006 Comments: ? what=congestion HAY FEVER (SEASONAL ALLERGIES) 08/13/2009 ZYRTEC (CETIRIZINE HCL) 08/06/2014 9 - Itching Date Reviewed: 12/10/2017 Reviewed by: Erika Valadez - Fully Assessed Primary Visit Diagnosis:Cervical high risk HPV (human papillomavirus) test positive [R87.810] Order(s):COLPOSCOPY [1233872] Order #: [id number] SURGICAL PATHOLOGY [[id number]] Order #: [id number] Prescriptions as of 12/10/2017 Sig: NEOMYCIN 500 MG TABLET Take 2 tablets by mouth four * METRONIDAZOLE 500 MG TABLET Take 1 tablet by mouth three * LEVOTHYROXINE 75 MCG TABLET TAKE 1 TABLET ONCE DAILY ON A* ACETAMINOPHEN 325 MG CAPSULE Take by mouth as needed. PROMETHAZINE 12.5 MG TABLET Take 1 tablet by mouth every * * DAILY MULTIVITAMIN TABLET Take one(1) tablet daily. * ASPIRIN 81 MG TABLET Take one(1) tablet daily. Problem List As Of Date 12/10/2017 Noted Resolved Hypothyroidism [E03.9] Abnormal Papanicolaou Smear of Vagina and Vagin* 02/06/2010 Dyspareunia [HFN7072] INVALID FOR*02/06/2010 Fx Sacrum/Coccyx-Closed [S32.10XA, S32.2XXA] INVALID FOR*02/06/2010 Fx Dorsal Vertebra-Closed [S22.009A] INVALID FOR*02/06/2010 Diverticulosis [K57.90] INVALID FOR* Calcaneal spur [M77.30] INVALID FOR*10/01/2017 Hives [L50.9] 10/01/2017 Chronic urticaria [L50.8] INVALID FOR*10/01/2017 Open wound(s) (multiple) of unspecified site(s)*INVALID FOR*10/01/2017 Primary osteoarthritis of first carpometacarpal*INVALID FOR* More... Obesity, Class I, BMI 30-34.9 E66.9 [E66.9] INVALID FOR* GERD (gastroesophageal reflux disease) [K21.9] INVALID FOR* Other instructions from your clinician: YOUR RECOVERY It may take a few weeks for your cervix to heal. While your cervix heals, you may have: - Vaginal bleeding (less than a normal menstrual period) - Mild cramping - A brown-black vaginal discharge (similar to coffee grounds) which is a result of the paste used to help stop bleeding from the procedure Do NOT put anything in the vagina for 1 week after your colposcopy if your doctor does a biopsy of your cervix. This includes sex, tampons, and douches. If you have any discomfort, you may take an over the counter pain medication (motrin, advil, ibuprofen, tylenol, etc). If this does not relieve your discomfort, contact your doctor's office for a prescription strength pain medication. It is okay to wear a sanitary pad until the discharge and spotting stops. RISKS Although problems seldom occur with colposcopy, there can be some complications. You may feel faint during and shortly after the procedure as well as have some bleeding and vaginal discharge after the procedure. There is also a risk of infection after the procedure. These complications are rare and can be easily treated. You should contact you doctor is you have any of the following: - Heavy bleeding (more than your normal period) - Bleeding with clots - Severe abdominal pain - Fever (more than 100.4F) - Foul smelling vaginal discharge RESULTS If a biopsy was taken, we will have the results of your biopsy in 1-2 weeks. If you do not hear the results of your biopsy after 2 weeks, please contact your physicians office for the results. Depending on the biopsy results, your doctor will determine your follow up plan which may include further testing or treatments. STAYING HEALTHY After the procedure, you will need to see your doctor for follow up visits during the year. At these visits your doctor will check the health of your cervix with a pap smear. After three normal pap smears, your doctor will allow you to return to having exams once a year. If you have another abnormal pap smear, you may need closer follow up for longer or you may need additional treatment. By making a few lifestyle changes after the procedure, you can help protect the health of your cervix: - Have regular pelvic exams and pap smears as ordered by your doctor. - Stop smoking as smoking increases your risk of developing a cancer of the cervix - If you have more than one sexual partner, limit your number of partners and use condoms to reduce your risks of STDs. If you have any additional questions, please contact your doctor's office. Encounter Status:Closed by ERIKA VALADEZ MD on 7/27/18 PROGRESS Observed: 12/10/2017 Status: COMPLETED Source: [place] 11:23 AM [facility] REPOSITORY HNO ID: [id number] Author: Erika Valadez Service: (none) Author Type: Physician Type: Progress Notes Filed: 12/10/2017 12:06 PM Note Text: Asia Hawley is a 57 year old female who presents today for a colposcopy. Her last pap smear was Positive HPV fand normal pap rom November 2017. Patient has a history of abnormal pap: Yes. She has had prior treatment: cryo. test: n/a UNIVERSAL PROTOCOL / SAFETY CHECKLIST Procedure to be performed: Colposcopy with possible biopsy Sign in Communication: Completed Time Out: Team Confirms the Correct Patient, Correct Procedure, Correct Site and Site Marking, Correct Position (if applicable), Prep and Dry Time (if applicable). Time: 11:50 Affirmation of Time Out: YES Sign Out Discussion: Completed PROCEDURE: EXTERNAL GENITALIA: Normal in appearance without lesions VAGINA: Normal in appearance without lesions CERVIX: Speculum placed in vagina and excellent visualization of cervix achieved. Cervix swabbed x 3 with 3% acetic acid solution. Cervix grossly normal. Squamocolumnar junction not visualized. No acetowhite changes, punctations, mosaicism or atypical vasculature noted. BIOPSY: Done at 3:00, 6:00, 9:00 and 12:00 ECC: done HEMOSTASIS: Obtained with silver nitrate and pressure Procedure Summary: Patient tolerated procedure well. ASSESSMENT: Normal pap with positive hpv PLAN: Specimens labeled and sent to Pathology. Will notify patient of results in 1-2 weeks. Post-procedure instructions reviewed and written material given to the patient. Erika Valadez MD PROGRESS Observed: 12/09/2017 Status: COMPLETED Source: [place] 6:04 PM [facility] REPOSITORY HNO ID: [id number] Author: Broderick Ohara Service: (none) Author Type: Physician Type: Progress Notes Filed: 12/09/2017 6:22 PM Note Text: HISTORY AND PHYSICAL - COLON RESECTION FOR LEFT LOWER QUADRANT PAIN, RECURRENT DIVERTICULITIS Asia Hawley 1960 December 09, 2017 REFERRING PHYSICIAN: Lola Grace MD CHIEF COMPLAINT: Left lower quadrant pain HPI: The patient is a 57 year old female with a complaint of recurring left lower quadrant pain. The patient underwent a sigmoid colectomy by Dr. Bar Grace in 2009. This was while the patient was hospitalized with an episode of acute diverticulitis. The patient states she had 6 inches of her colon removed at that time. The patient's surgical procedure was December 07, 2009. She underwent sigmoid colectomy for acute perforated diverticulitis. This was done in the emergency procedure. This was performed laparoscopically. A segment of inflamed colon was removed. Due to the fact that a longer rectal stump was left in place. A handsewn anastomosis was performed by Dr. Grace. The patient recalls she was in the hospital for approximately 1 week postoperatively. No mention of leak or other complications were noted, but discharge summary was not able to be obtained. Pathology noted an 8 cm length of sigmoid colon. Since that time. The patient is noted one to 2 episodes of diverticulitis and left lower quadrant pain per year. Usually this had resolved with oral antibiotics. The patient underwent colonoscopy in 2014 for rectal bleeding which demonstrated diverticulosis in the sigmoid area without other abnormalities. The patient presented to Dr. Grace with the above complaints of recurring left lower quadrant pain and likely chronically recurring diverticulitis. The patient since then notes a degree of discomfort and bloating after eating food. She noted discomfort after her bowel prep, which she was able to tolerate the lower volume. Bowel prep of Mirialx/Gatorade and Dulcolax CT scan was obtained which demonstrated a 4 cm left ovarian cystic type mass and sigmoid diverticulosis. A barium enema was obtained which demonstrated sigmoid diverticulosis with a few other diverticula throughout the colon and no other specific abnormalities. The patient was evaluated by Dr. Valadez for her left ovarian cyst. Ultrasound following the CAT Scan Was Performed at [facility] [place] and demonstrated no abnormal masses in the left or right ovary The patient is being seen by me today at the request of Dr. Grace for my opinion and advice regarding sigmoid resection for recurring diverticulitis and left lower quadrant pain. PAST MEDICAL HISTORY Diagnosis Date - Abnormal Papanicolaou smear of vagina and vaginal HPV - Diverticulitis of sigmoid colon 12/07/2009 ACUTE - Diverticulosis of colon (without mention of hemorrhage) - GERD (gastroesophageal reflux disease) 10/01/2017 - Hives - Intramural leiomyoma of uterus - Rectal bleed 09/05/14 - Unspecified hypothyroidism PAST SURGICAL HISTORY Procedure Laterality Date - CERVIX UTERI CAUTER CRYOCAUTER 1999 - COLONOSCOP W/ OR W/O [facility] SPEC 04/10/09 - COLONOSCOP W/ OR W/O [facility] SPEC 09/05/14 Repeat 2024 - COLPOSCOPY (VAGINOSCOPY) Multiple starting 1995 Colposcopy - LAPAROSCOPIC HEMICOLECTOMY 12/07/2009 diverticulitis - LIGATE FALLOPIAN TUBE Tubal ligation - PAST SURGICAL HISTORY OF 10/2008 T9-L1 fusion, Dr. Lemon - PAST SURGICAL HISTORY OF 10/24/2009 Removed T9-L1, 2 rods and 8 screws, Dr Lemon - REMOVAL GALLBLADDER Cholecystectomy - REPAIR INTERCARP/CARP-METACARP JT Right 10/13/2017 Right thumb CMC arthroplasty with LRTI Current Outpatient Prescriptions: neomycin 500 mg tablet Take 2 tablets by mouth four times daily. 2 TABLETS AT 6, 8 ,AND 10 PM Disp: 6 tablet Rfl: 0 metroNIDAZOLE (FLAGYL) 500 mg tablet Take 1 tablet by mouth three times daily. 2 TABLETS AT 6, 8, AND 10 PM Disp: 6 tablet Rfl: 0 peg 3350-Electrolytes (GOLYTELY) 236-22.74-6.74 -5.86 gram suspension Take 4,000 mL by mouth one time only for 1 dose. Disp: 1 Bottle Rfl: 0 levothyroxine (SYNTHROID) 75 mcg tablet TAKE 1 TABLET ONCE DAILY ON AN EMPTY STOMACH FOR THYROID Disp: 90 tablet Rfl: 1 acetaminophen (TYLENOL) 325 mg cap Take by mouth as needed. Disp: Rfl: promethazine (PHENERGAN) 12.5 mg tablet Take 1 tablet by mouth every 6 hours as needed. Disp: 20 tablet Rfl: 1 multivitamins(DAILY MULTIVITAMIN TAB) Take one(1) tablet daily. Disp: Rfl: 0 ASPIRIN 81 MG TAB Take one(1) tablet daily. Disp: Rfl: 0 No current facility-administered medications for this visit. ALLERGIES: Environmental [Other]; Hay Fever [Seasonal Allergies]; Zyrtec [Cetirizine Hcl] PERSONAL HISTORY: Social History Marital status: Spouse name: Years of education: Number of children: 2 Occupational History Occupation Employer Comment [employer] Social History Main Topics Smoking status: Never Smoker Smokeless tobacco: Never Used Comment: No one in household smokes Alcohol use: Yes Comment: Rarely Drug use: No Sexual activity: Yes Partners with: Male control/protection: Tubal Ligation FAMILY HISTORY: FAMILY HISTORY Problem Relation Age of Onset - Hypertension Mother - Thyroid Mother - Heart Father - Hypertension Father - Heart Maternal Grandmother - Stroke Maternal Grandmother - Cancer Maternal Grandmother COLON - Cancer Paternal Grandmother STOMACH REVIEW OF SYMPTOMS: The review of systems data was entered by the nurse and reviewed by me There are no exam notes on file for this visit. REVIEW OF SYSTEMS: General: The patient denies fatigue, denies weight loss, denies weight gain, denies feeling hot, and denies feelings of cold. Eyes: The patient denies glaucoma, denies eye injury/surgery, wears glasses or contacts. Ear/Nose/Throat: The patient NOTES allergies, NOTES hayfever, denies ear infections, and denies bloody noses. Cardiovascular: The patient denies chest pain, denies heart disease, denies high blood pressure,denies cardiac stent, denies prior heart attack, denies irregular heart beat, denies high cholesterol, denies poor circulation, denies heart failure, other cardiac issues, denies claudication, denies cold feet, denies peripheral arterial stent. Respiratory: The patient denies tuberculosis, denies pneumonia, denies frequent cough, denies pulmonary embolism, denies shortness of breath, and denies coughing up blood. Gastrointestinal: The patient denies difficulty swallowing, denies acid reflux, denies ulcers, denies vomiting, denies jaundice/hepatitis, denies gallbladder problems, denies black or tarry stools, denies hemorrhoids, denies bleeding from rectum, NOTES diverticulitis, NOTES constipation, denies diarrhea, denies loss of stool control, and denies hernias. Kidney/Bladder: The patient denies kidney stones, denies urine infections, and denies bloody urine. Skin: The patient denies a history of skin cancer, denies bleeding/changing moles, and denies a history of skin rash. Neurologic: The patient denies a history of epilepsy/convulsions, denies headaches, denies head/spinal injuries, and denies stroke/TIA. Psychiatric: The patient denies psychiatric medications, denies depression, and denies voices, denies substance abuse. Endocrine: The patient NOTES thyroid disorders, denies diabetes, and denies hormonal problems. Hematologic: The patient denies a history of bruising, denies bleeding, and denies anemia, denies blood clots. Infections: The patient denies a history of measles and mumps, denies rheumatic fever, and denies sexually transmitted diseases. Musculoskeletal: The patient NOTES back pain/injury, denies back problems, denies sciatica, denies knee/foot trouble, NOTES arthritis, or denies gout. ? PHYSICAL EXAMINATION: General: The patient is 57 year old female, well nourished, well hydrated in no acute distress. The patient is oriented to time, place, and person. VITALS: LMP 01/07/2011 There is no height or weight on file to calculate BMI. HEENT: Normal cephalic, ataumatic, pupils are equally round, sclera are anicteric, mucous membranes are moist, oropharynx is clear. Neck has no masses, asymmetry or lymphadenopathy. Thyroid is unremarkable. Respiratory: Clear to auscultation and percussion. Normal respiratory excursion and pattern. Cardiac: Examination is regular rate and rhythm. Abdominal exam: Soft, nontender, with no palpable masses. No hepatosplenomegaly. No palpable hernias. Rectal exam: exam deferred Extremities: no clubbing, cyanosis or edema. No adenopathy. LABORATORY VALUES: As Noted RADIOLOGIC STUDIES: As Noted Assessment IMPRESSION: Left lower quadrant pain, recurring diverticulitis, prior short segment sigmoid resection during episode of acute diverticulitis PLAN: We extensively discussed the diagnosis and discussed the surgical options. The patient has elected to undergo colon resction I plan to perform a Laparoscopic Low Anterior Resection - [id number]. The planned surgical procedure was discussed extensively with the patient. The risks, benefits, anticipated outcomes and possible complications and alternatives were discussed. My staff has also explained the procedure in understandable terms and the patient was given the option to take printed material concerning the planned procedure. The patient had the opportunity to ask questions concerning the planned procedure. The patient freely consents to the planned procedure. I will plan for outpatient bowel preparation including mechanical preparation on the night before endoscopy, which is currently planned for December [address] Grace. Following colonoscopy, the patient will be maintained on clear liquids that day and complete the antibiotic preparation including Neomycin and Flagyl 1gm each at 6,8, and 10pm the night before surgery. She'll be admitted to surgery on December 23. I plan to have Dr. Fred Johnson place a left ureteral catheter given the previous surgical history. Anticipated Surgical Procedure/ CPT Code: Laparoscopic Low Anterior Resection - 60212-138 and Lap Mobilization of the Splenic Flexure - [phone] Anticipated Anesthetic: General Patient weight: Last menstrual period 01/07/2011. BMI: There is no height or weight on file to calculate BMI. 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 Broderick Ohara MD CNOV Observed: 12/09/2017 Status: COMPLETED Source: [place] 3:00 PM [facility] REPOSITORY Office Visit (GENSWS) ASIA HAWLEY ([id number]) 1960 F Date Time Provider Department 12/09/17 3:00 PM BRODERICK OHARA During your visit today, we recorded the following information about you: Broderick Ohara MD 12/09/2017 3:33 PM Signed The following instructions are important for you related to your office visit today with the [facility]. INSTRUCTIONS FOR YOUR SURGICAL PROCEDURE - COLON RESECTION We discussed the risks and benefits of your planned procedure. If you have any additional questions, please contact our office immediately. Preadmission testing is an important part of preparation for your procedure. All laboratory studies, x-rays, and additional testing must be available for the preadmission testing staff to help ready you for surgery. You should not take aspirin or other blood thinners for one week prior to surgery unless instructed differently. You were given handouts with instructions for your bowel preparation. It is important that should follow these instructions closely. If you do not feel you are becoming adequately clean after your bowel preparation, contact our office. Make sure to drink plenty of clear liquids with your bowel cleansing. This well help to better clean your colon and prevent dehydration. Do not eat or drink liquids after midnight. After completing the bowel cleansing, You may be given antibiotic tablets to further prepare your colon. Typically neomycin and flagyl - 1gram orally at: 4pm, 6pm and 10pm are given. The times may be different if surgery is not scheduled for the first case of the day. You should not have anything to eat or drink after midnight the night prior to your surgery. You should wear comfortable clothes for your procedure. Please understand that the operating room schedule is an estimated time for your surgical procedure. Your procedure may be somewhat earlier or somewhat later than the estimated time. You will typically be kept NPO in the hospital until you have return of bowel activity. Once you have return of bowel activity, you will be started on clear liquids and typically will go home the following day. You'll be discharged home with postoperative instructions and typically pain medications. Please be aware that many pain medications may cause nausea. You should typically eat light foods as you take your pain medications. Your dressing will usually be able to be removed two to three days following surgery. You may typically shower three days after surgery. If you have Steri-Strips on your incision (little white tapes) you should leave these in place until they fall off. You will typically have a followup office visit 1 to 2 weeks after surgery. Again, if you have any difficulties or concerns, contact our office immediately. If you note any additional difficulties, questions, or concerns, you should contact our office immediately @ [phone] and ask to be transferred to the General Surgery department. Broderick Ohara MD 12/09/2017 6:22 PM Signed HISTORY AND PHYSICAL - COLON RESECTION FOR LEFT LOWER QUADRANT PAIN, RECURRENT DIVERTICULITIS Asia Herrera Chandan 1960 December 09, 2017 REFERRING PHYSICIAN: Lola Grace MD CHIEF COMPLAINT: Left lower quadrant pain HPI: The patient is a 57 year old female with a complaint of recurring left lower quadrant pain. The patient underwent a sigmoid colectomy by Dr. Bar Grace in 2009. This was while the patient was hospitalized with an episode of acute diverticulitis. The patient states she had 6 inches of her colon removed at that time. The patient's surgical procedure was December 07, 2009. She underwent sigmoid colectomy for acute perforated diverticulitis. This was done in the emergency procedure. This was performed laparoscopically. A segment of inflamed colon was removed. Due to the fact that a longer rectal stump was left in place. A handsewn anastomosis was performed by Dr. Grace. The patient recalls she was in the hospital for approximately 1 week postoperatively. No mention of leak or other complications were noted, but discharge summary was not able to be obtained. Pathology noted an 8 cm length of sigmoid colon. Since that time. The patient is noted one to 2 episodes of diverticulitis and left lower quadrant pain per year. Usually this had resolved with oral antibiotics. The patient underwent colonoscopy in 2014 for rectal bleeding which demonstrated diverticulosis in the sigmoid area without other abnormalities. The patient presented to Dr. Grace with the above complaints of recurring left lower quadrant pain and likely chronically recurring diverticulitis. The patient since then notes a degree of discomfort and bloating after eating food. She noted discomfort after her bowel prep, which she was able to tolerate the lower volume. Bowel prep of Mirialx/Gatorade and Dulcolax CT scan was obtained which demonstrated a 4 cm left ovarian cystic type mass and sigmoid diverticulosis. A barium enema was obtained which demonstrated sigmoid diverticulosis with a few other diverticula throughout the colon and no other specific abnormalities. The patient was evaluated by Dr. Valadez for her left ovarian cyst. Ultrasound following the CAT Scan Was Performed at [facility] [place] and demonstrated no abnormal masses in the left or right ovary The patient is being seen by me today at the request of Dr. Grace for my opinion and advice regarding sigmoid resection for recurring diverticulitis and left lower quadrant pain. PAST MEDICAL HISTORY Diagnosis Date - Abnormal Papanicolaou smear of vagina and vaginal HPV - Diverticulitis of sigmoid colon 12/07/2009 ACUTE - Diverticulosis of colon (without mention of hemorrhage) - GERD (gastroesophageal reflux disease) 10/01/2017 - Hives - Intramural leiomyoma of uterus - Rectal bleed 09/05/14 - Unspecified hypothyroidism PAST SURGICAL HISTORY Procedure Laterality Date - CERVIX UTERI CAUTER CRYOCAUTER 1999 - COLONOSCOP W/ OR W/O [facility] SPEC 04/10/09 - COLONOSCOP W/ OR W/O [facility] SPEC 09/05/14 Repeat 2024 - COLPOSCOPY (VAGINOSCOPY) Multiple starting 1995 Colposcopy - LAPAROSCOPIC HEMICOLECTOMY 12/07/2009 diverticulitis - LIGATE FALLOPIAN TUBE Tubal ligation - PAST SURGICAL HISTORY OF 10/2008 T9-L1 fusion, Dr. Lemon - PAST SURGICAL HISTORY OF 10/24/2009 Removed T9-L1, 2 rods and 8 screws, Dr Lemon - REMOVAL GALLBLADDER Cholecystectomy - REPAIR INTERCARP/CARP-METACARP JT Right 10/13/2017 Right thumb CMC arthroplasty with LRTI Current Outpatient Prescriptions: neomycin 500 mg tablet Take 2 tablets by mouth four times daily. 2 TABLETS AT 6, 8 ,AND 10 PM Disp: 6 tablet Rfl: 0 metroNIDAZOLE (FLAGYL) 500 mg tablet Take 1 tablet by mouth three times daily. 2 TABLETS AT 6, 8, AND 10 PM Disp: 6 tablet Rfl: 0 peg 3350-Electrolytes (GOLYTELY) 236-22.74-6.74 -5.86 gram suspension Take 4,000 mL by mouth one time only for 1 dose. Disp: 1 Bottle Rfl: 0 levothyroxine (SYNTHROID) 75 mcg tablet TAKE 1 TABLET ONCE DAILY ON AN EMPTY STOMACH FOR THYROID Disp: 90 tablet Rfl: 1 acetaminophen (TYLENOL) 325 mg cap Take by mouth as needed. Disp: Rfl: promethazine (PHENERGAN) 12.5 mg tablet Take 1 tablet by mouth every 6 hours as needed. Disp: 20 tablet Rfl: 1 multivitamins(DAILY MULTIVITAMIN TAB) Take one(1) tablet daily. Disp: Rfl: 0 ASPIRIN 81 MG TAB Take one(1) tablet daily. Disp: Rfl: 0 No current facility-administered medications for this visit. ALLERGIES: Environmental [Other]; Hay Fever [Seasonal Allergies]; Zyrtec [Cetirizine Hcl] PERSONAL HISTORY: Social History Marital status: Spouse name: Years of education: Number of children: 2 Occupational History Occupation Employer Comment [employer] Social History Main Topics Smoking status: Never Smoker Smokeless tobacco: Never Used Comment: No one in household smokes Alcohol use: Yes Comment: Rarely Drug use: No Sexual activity: Yes Partners with: Male control/protection: Tubal Ligation FAMILY HISTORY: FAMILY HISTORY Problem Relation Age of Onset - Hypertension Mother - Thyroid Mother - Heart Father - Hypertension Father - Heart Maternal Grandmother - Stroke Maternal Grandmother - Cancer Maternal Grandmother COLON - Cancer Paternal Grandmother STOMACH REVIEW OF SYMPTOMS: The review of systems data was entered by the nurse and reviewed by me There are no exam notes on file for this visit. REVIEW OF SYSTEMS: General: The patient denies fatigue, denies weight loss, denies weight gain, denies feeling hot, and denies feelings of cold. Eyes: The patient denies glaucoma, denies eye injury/surgery, wears glasses or contacts. Ear/Nose/Throat: The patient NOTES allergies, NOTES hayfever, denies ear infections, and denies bloody noses. Cardiovascular: The patient denies chest pain, denies heart disease, denies high blood pressure,denies cardiac stent, denies prior heart attack, denies irregular heart beat, denies high cholesterol, denies poor circulation, denies heart failure, other cardiac issues, denies claudication, denies cold feet, denies peripheral arterial stent. Respiratory: The patient denies tuberculosis, denies pneumonia, denies frequent cough, denies pulmonary embolism, denies shortness of breath, and denies coughing up blood. Gastrointestinal: The patient denies difficulty swallowing, denies acid reflux, denies ulcers, denies vomiting, denies jaundice/hepatitis, denies gallbladder problems, denies black or tarry stools, denies hemorrhoids, denies bleeding from rectum, NOTES diverticulitis, NOTES constipation, denies diarrhea, denies loss of stool control, and denies hernias. Kidney/Bladder: The patient denies kidney stones, denies urine infections, and denies bloody urine. Skin: The patient denies a history of skin cancer, denies bleeding/changing moles, and denies a history of skin rash. Neurologic: The patient denies a history of epilepsy/convulsions, denies headaches, denies head/spinal injuries, and denies stroke/TIA. Psychiatric: The patient denies psychiatric medications, denies depression, and denies voices, denies substance abuse. Endocrine: The patient NOTES thyroid disorders, denies diabetes, and denies hormonal problems. Hematologic: The patient denies a history of bruising, denies bleeding, and denies anemia, denies blood clots. Infections: The patient denies a history of measles and mumps, denies rheumatic fever, and denies sexually transmitted diseases. Musculoskeletal: The patient NOTES back pain/injury, denies back problems, denies sciatica, denies knee/foot trouble, NOTES arthritis, or denies gout. ? PHYSICAL EXAMINATION: General: The patient is 57 year old female, well nourished, well hydrated in no acute distress. The patient is oriented to time, place, and person. VITALS: LMP 01/07/2011 There is no height or weight on file to calculate BMI. HEENT: Normal cephalic, ataumatic, pupils are equally round, sclera are anicteric, mucous membranes are moist, oropharynx is clear. Neck has no masses, asymmetry or lymphadenopathy. Thyroid is unremarkable. Respiratory: Clear to auscultation and percussion. Normal respiratory excursion and pattern. Cardiac: Examination is regular rate and rhythm. Abdominal exam: Soft, nontender, with no palpable masses. No hepatosplenomegaly. No palpable hernias. Rectal exam: exam deferred Extremities: no clubbing, cyanosis or edema. No adenopathy. LABORATORY VALUES: As Noted RADIOLOGIC STUDIES: As Noted Assessment IMPRESSION: Left lower quadrant pain, recurring diverticulitis, prior short segment sigmoid resection during episode of acute diverticulitis PLAN: We extensively discussed the diagnosis and discussed the surgical options. The patient has elected to undergo colon resction I plan to perform a Laparoscopic Low Anterior Resection - 79540-450. The planned surgical procedure was discussed extensively with the patient. The risks, benefits, anticipated outcomes and possible complications and alternatives were discussed. My staff has also explained the procedure in understandable terms and the patient was given the option to take printed material concerning the planned procedure. The patient had the opportunity to ask questions concerning the planned procedure. The patient freely consents to the planned procedure. I will plan for outpatient bowel preparation including mechanical preparation on the night before endoscopy, which is currently planned for December [address] Grace. Following colonoscopy, the patient will be maintained on clear liquids that day and complete the antibiotic preparation including Neomycin and Flagyl 1gm each at 6,8, and 10pm the night before surgery. She'll be admitted to surgery on December 23. I plan to have Dr. Fred Johnson place a left ureteral catheter given the previous surgical history. Anticipated Surgical Procedure/ CPT Code: Laparoscopic Low Anterior Resection - 40456-735 and Lap Mobilization of the Splenic Flexure - +[phone] Anticipated Anesthetic: General Patient weight: Last menstrual period 01/07/2011. BMI: There is no height or weight on file to calculate BMI. 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 Broderick Ohara MD Referring Provider: LOLA GRACE [[id number]] Allergies As of Date: 12/09/2017 Noted Allergy Reaction environmental [Other] 12/28/2006 Comments: ? what=congestion HAY FEVER (SEASONAL ALLERGIES) 08/13/2009 ZYRTEC (CETIRIZINE HCL) 08/06/2014 9 - Itching Date Reviewed: 12/09/2017 Reviewed by: Mariaa Valenzuela LPN - Fully Assessed Reason for Visit: discuss surgery [Other] Primary Visit Diagnosis:Lower abdominal pain [R10.30] Other Visit Diagnoses:Diverticulosis of large intestine without perforation or abscess without bleeding [K57.30] Nausea [R11.0] Order(s):neomycin 500 mg tabletTake 2 tablets by mouth four times daily. 2 TABLETS AT 6, 8 ,AND 10 PMDisp: 6 tabletRfl: 0 metroNIDAZOLE (FLAGYL) 500 mg tabletTake 1 tablet by mouth three times daily. 2 TABLETS AT 6, 8, AND 10 PMDisp: 6 tabletRfl: 0 peg 3350-Electrolytes (GOLYTELY) 236-22.74-6.74 - 5.86 gram suspensionTake 4,000 mL by mouth one time only for 1 dose.Disp: 1 BottleRfl: 0 Prescriptions as of 12/09/2017 Sig: NEOMYCIN 500 MG TABLET Take 2 tablets by mouth four * METRONIDAZOLE 500 MG TABLET Take 1 tablet by mouth three * PEG 3350-ELECTROLYTES 236 GRA* Take 4,000 mL by mouth one ti* LEVOTHYROXINE 75 MCG TABLET TAKE 1 TABLET ONCE DAILY ON A* ACETAMINOPHEN 325 MG CAPSULE Take by mouth as needed. PROMETHAZINE 12.5 MG TABLET Take 1 tablet by mouth every * * DAILY MULTIVITAMIN TABLET Take one(1) tablet daily. * ASPIRIN 81 MG TABLET Take one(1) tablet daily. Problem List As Of Date 12/09/2017 Noted Resolved Hypothyroidism [E03.9] Abnormal Papanicolaou Smear of Vagina and Vagin* 02/06/2010 Dyspareunia [UXE8655] INVALID FOR*02/06/2010 Fx Sacrum/Coccyx-Closed [S32.10XA, S32.2XXA] INVALID FOR*02/06/2010 Fx Dorsal Vertebra-Closed [S22.009A] INVALID FOR*02/06/2010 Diverticulosis [K57.90] INVALID FOR* Calcaneal spur [M77.30] INVALID FOR*10/01/2017 Hives [L50.9] 10/01/2017 Chronic urticaria [L50.8] INVALID FOR*10/01/2017 Open wound(s) (multiple) of unspecified site(s)*INVALID FOR*10/01/2017 Primary osteoarthritis of first carpometacarpal*INVALID FOR* More... Obesity, Class I, BMI 30-34.9 E66.9 [E66.9] INVALID FOR* GERD (gastroesophageal reflux disease) [K21.9] INVALID FOR* Other instructions from your clinician: The following instructions are important for you related to your office visit today with the [facility]. INSTRUCTIONS FOR YOUR SURGICAL PROCEDURE - COLON RESECTION We discussed the risks and benefits of your planned procedure. If you have any additional questions, please contact our office immediately. Preadmission testing is an important part of preparation for your procedure. All laboratory studies, x-rays, and additional testing must be available for the preadmission testing staff to help ready you for surgery. You should not take aspirin or other blood thinners for one week prior to surgery unless instructed differently. You were given handouts with instructions for your bowel preparation. It is important that should follow these instructions closely. If you do not feel you are becoming adequately clean after your bowel preparation, contact our office. Make sure to drink plenty of clear liquids with your bowel cleansing. This well help to better clean your colon and prevent dehydration. Do not eat or drink liquids after midnight. After completing the bowel cleansing, You may be given antibiotic tablets to further prepare your colon. Typically neomycin and flagyl - 1gram orally at: 4pm, 6pm and 10pm are given. The times may be different if surgery is not scheduled for the first case of the day. You should not have anything to eat or drink after midnight the night prior to your surgery. You should wear comfortable clothes for your procedure. Please understand that the operating room schedule is an estimated time for your surgical procedure. Your procedure may be somewhat earlier or somewhat later than the estimated time. You will typically be kept NPO in the hospital until you have return of bowel activity. Once you have return of bowel activity, you will be started on clear liquids and typically will go home the following day. You'll be discharged home with postoperative instructions and typically pain medications. Please be aware that many pain medications may cause nausea. You should typically eat light foods as you take your pain medications. Your dressing will usually be able to be removed two to three days following surgery. You may typically shower three days after surgery. If you have Steri-Strips on your incision (little white tapes) you should leave these in place until they fall off. You will typically have a followup office visit 1 to 2 weeks after surgery. Again, if you have any difficulties or concerns, contact our office immediately. If you note any additional difficulties, questions, or concerns, you should contact our office immediately @ [phone] and ask to be transferred to the General Surgery department. Prescriptions ordered this encounter Disp Refills Start End NEOMYCIN 500 MG TABLET 6 ta* 0 12/09/2017 Route: ORAL Sig: Take 2 tablets by mouth four times daily. 2 TABLETS AT 6, 8 ,AND 10 PM METRONIDAZOLE 500 MG TABLET 6 ta* 0 12/09/2017 Route: ORAL Sig: Take 1 tablet by mouth three times daily. 2 TABLETS AT 6, 8, AND 10 PM PEG 3350-ELECTROLYTES 236 GRAM-22.74* 1 Saul* 0 12/09/2017 12/09/2017 Route: ORAL Sig: Take 4,000 mL by mouth one time only for 1 dose. 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 Date/Time Doctor OR __ Anesthesia not yet notified of consult by surgeon. Check area of concern. System of concern: __Cardiac __Pulmonary __Neuro __ Airway __Allergies __Other __ Anesthesia to see patient at PAT appointment. (PAT appt must be between 1-3 pm) LAB ORDERS: X Labs done at [facility] (Copies enclosed for [facility]) __ Duplicate order __ No Labs ordered ___ CBC ___ CBC/Diff ___ Basic Metabolic Profile (BUN, Lytes, Glu, Cre, Calcium) __ Glucose __ Creatinine __ BUN __ Lytes __ Protime- Dx code: __ PTT - Dx code: __ Urinalysis __ Urinalysis (complete) __ Liver Profile __ Lipid Profile __ Alk Phosphatase __ Bilirubin __ Amylase/Lipase __ Magnesium __ Phosphorous __ PSA - Dx code: __ CEA - Dx code: __ Urine __ Serum (Age 11-52 years old unless sterilization or pt refuses) X Screen for MRSA (PCR) if guidelines met Other: BLOOD BANK: __ Type AND Screen __ Type AND Cross (RC) units __ Autologous units __ Fresh Frozen Plasma units __ Platelets units ANCILLARY DEPTS: __EKG-MD to read: __PA/Lat CXR Reason for exam: __ Incentive Spirometer __ PERSONAL COMPANION Other: Patient has: Pacemaker ICD Prime Broker name AND phone number: Pacer/ICD rep notified by nurse: X CHG product: A[employer] or cloths Dispense CHG product+Instructions if surgical site below neck Additional Orders: PAT Comment: Anesthesia notified on about: TEDS / KNEE HIGH TEDS / THIGH HIGH Faxed to Pharmacy: __ Vancomycin 1000 mg IV X 1 dose preoperatively if history of MRSA or positive MRSA screening (Fax to Rx) Admission Status: SDC Outpatient SDC Overnight (23 hr or less) X Admit Date: PAT Surgery Allergies:. Environmental [Other]; Hay Fever [Seasonal Allergies]; Zyrtec [Cetirizine Hcl] Patient's Name: Dena Hawley Patient's Birthdate: 1960 Diagnosis: (R10.30) Lower abdominal pain (primary encounter diagnosis) (K57.30) Diverticulosis of large intestine without perforation or abscess without bleeding (R11.0) Nausea [facility] Surgery / Procedure: Laparoscopic Low Anterior Resection - 59237-376 and Lap Mobilization of the Splenic Flexure - +[phone] Surgeon / Physician: Broderick Ohara MD My doctor and I talked about the recommended surgery/procedure, the reasons it is being recommended, and what it generally is expected to do. We talked about major risks or complications that could occur. We talked about options other than the recommended surgery/procedure (including no treatment) and the benefits and risks of each option. I received and understand information describing the surgery or procedure, its potential risks and complications. I know surgery/medicine is not an exact science. No doctor, nurse or anyone from [facility] promised or guaranteed the success or clinical outcome of the surgery/procedure, or that a risk or complication could not occur. I know every surgery/procedure has risks, including the risk of anesthesia, the risk of unplanned injury, the risk of infection and the risk of failure. I know that not every possible risk could be covered in the written materials or in talking with the doctor. Before signing this Consent, I had an opportunity to discuss the recommended surgery/procedure, other options, and risks. I am satisfied with the answers to all of my questions. I understand about risks and knowingly accept them. If you are (or believe you may be ), tell your doctor or nurse before you sign this Consent. Your doctor will discuss with you if there are potential risks to your unborn child. Your consent will be for yourself and for the unborn child. It is the Hospital's policy to require that a responsible adult drive you directly home when you leave the Hospital. By signing, you accept and agree with this policy. By signing, I voluntarily and knowingly give my informed consent: O To have the doctor perform the recommended surgery/procedure. O To have such anesthetics (including moderate sedation) that are necessary and advisable. O To have the doctor perform additional, medically necessary surgery/procedures to treat any unforeseen or newly-discovered condition that occurs during surgery/the procedure, which needs prompt attention. O To examine, record and dispose of any tissue or body parts that are removed. O To allow photographs that will be used strictly for documenting my medical condition and treatment, which will be made a part of my confidential medical record. Check, if applicable: - To give me blood or blood products during surgery/procedure and during my hospital stay, as medically necessary. The risks, benefits, and alternatives to transfusions have been discussed with me and all my questions have been answered. - To not give me blood or blood products. I fully understand that this may adversely affect my medical management and may result in my . Alternatives to blood/blood products have been discussed with me. I read this Form, or had it read to me. I understand what it says. Patient or Responsible Person Relationship to Patient Witness to Signature Only Reason Patient Does Not Sign -- Date and Time signed Physician's signature [id number] Rev 11/20 Informed Consent Page 1 of 2 [facility] Informed Consent Surgery / Procedure: Laparoscopic Low Anterior Resection - 64726-470 and Lap Mobilization of the Splenic Flexure - [phone] Surgeon / Physician: Broderick Ohara MD My doctor and I talked about the recommended surgery / procedure, the reasons it is being recommended, and what it generally is expected to do. We talked about major risks or complications that could occur. We talked about options other than the recommended surgery / procedure (including no treatment) and the benefits and risks of each option. I received and understand information describing the surgery or procedure, its potential risks, and complications. I know surgery / medicine is not an exact science. No doctor, nurse or anyone from [facility] promised or guaranteed the success or clinical outcome of the surgery / procedure, or that a risk or complication could not occur. I know every surgery / procedure has risks, including the risk of anesthesia, the risk of unplanned injury, the risk of infection and the risk of failure. I know that not every possible risk could be covered in the written materials or in talking with the doctor. Before signing this Consent, I had an opportunity to discuss the recommended surgery / procedure, other options, risks, and what may occur if I choose not to have the surgery / procedure. I am satisfied with the answers to all of my questions. I understand about risks and knowingly accept them. If you are (or believe you may be ), tell your doctor or nurse before you sign this Consent. Your doctor will discuss with you if there are potential risks to your unborn child. Your consent will be for yourself and for the unborn child. It is the Hospital?s policy to require that a responsible adult drive you directly home when you leave the Hospital. By signing, you accept and agree with this policy. By signing, I voluntarily and knowingly give my informed consent: To have the doctor perform the recommended surgery / procedure To have such anesthetics (including moderate / deep sedation) that are necessary and advisable. To have the doctor perform additional, medically necessary surgery / procedures to treat any unforeseen or newly-discovered condition that occurs during surgery / the procedure, which needs prompt attention. To examine, record and dispose of any tissue or body parts that are removed. To allow photographs that will be used strictly for documenting my medical condition and treatment, which will be made a part of my confidential medical record. To allow [facility] employees, such as an Registered Nurse Engineering Executive (TRAUMA THERAPIST) to assist with my surgery To allow Healthcare Industry Representatives to be present during my surgery or procedure To allow students to participate in the care, under appropriate situations. Page 1 of 2 [facility] Informed Consent Check One: To give me blood or blood products during surgery / procedure and during my hospital stay, as medically necessary. The risks, benefits, and alternatives to transfusions have been discussed with me and all my questions have been answered. To not give me blood or blood products. I fully understand that this may adversely affect my medical management and may result in my . Alternatives to blood / blood products have been discussed with me. I read this Form, or had it read to me. I understand what it says. Patient Signature Relationship to Patient Date AND Time Signed Reason Patient Does Not Sign Witness to Signature Only Date and Time Signed I certify that I have explained the nature, purpose, anticipated risks and benefits, complications, and alternatives to the proposed procedure to the patient. I have answered all questions fully and I believe the patient fully understands what I have explained. Physician?s Signature Date and Time [facility] [address] [place], [place] [address] Erika Valadez MD [address] [place] [address] 12/09/2017 Dear Erika Valadez MD : Thank you for allowing me to evaluate your patient, Asia Hawley. I saw Asia on 12/09/2017. I am planning to perform a adlkasdkj. Enclosed is a copy of my office dictation for Asia which includes my evaluation and recommendations. Again, thank you for the referral of Asia Hawley. If I can be of any assistance to you in the future, please don't hesitate to call. Sincerely yours, Broderick Ohara MD, FACS HISTORY AND PHYSICAL - COLON RESECTION FOR LEFT LOWER QUADRANT PAIN, RECURRENT DIVERTICULITIS Asia Hawley 1960 December 09, 2017 REFERRING PHYSICIAN: Lola Grace MD CHIEF COMPLAINT: Left lower quadrant pain HPI: The patient is a 57 year old female with a complaint of recurring left lower quadrant pain. The patient underwent a sigmoid colectomy by Dr. Bar Grace in 2009. This was while the patient was hospitalized with an episode of acute diverticulitis. The patient states she had 6 inches of her colon removed at that time. The patient's surgical procedure was December 07, 2009. She underwent sigmoid colectomy for acute perforated diverticulitis. This was done in the emergency procedure. This was performed laparoscopically. A segment of inflamed colon was removed. Due to the fact that a longer rectal stump was left in place. A handsewn anastomosis was performed by Dr. Grace. The patient recalls she was in the hospital for approximately 1 week postoperatively. No mention of leak or other complications were noted, but discharge summary was not able to be obtained. Pathology noted an 8 cm length of sigmoid colon. Since that time. The patient is noted one to 2 episodes of diverticulitis and left lower quadrant pain per year. Usually this had resolved with oral antibiotics. The patient underwent colonoscopy in 2014 for rectal bleeding which demonstrated diverticulosis in the sigmoid area without other abnormalities. The patient presented to Dr. Grace with the above complaints of recurring left lower quadrant pain and likely chronically recurring diverticulitis. The patient since then notes a degree of discomfort and bloating after eating food. She noted discomfort after her bowel prep, which she was able to tolerate the lower volume. Bowel prep of Mirialx/Gatorade and Dulcolax CT scan was obtained which demonstrated a 4 cm left ovarian cystic type mass and sigmoid diverticulosis. A barium enema was obtained which demonstrated sigmoid diverticulosis with a few other diverticula throughout the colon and no other specific abnormalities. The patient was evaluated by Dr. Valadez for her left ovarian cyst. Ultrasound following the CAT Scan Was Performed at [facility] and demonstrated no abnormal masses in the left or right ovary The patient is being seen by me today at the request of Dr. Grace for my opinion and advice regarding sigmoid resection for recurring diverticulitis and left lower quadrant pain. PAST MEDICAL HISTORY Diagnosis Date - Abnormal Papanicolaou smear of vagina and vaginal HPV - Diverticulitis of sigmoid colon 12/07/2009 ACUTE - Diverticulosis of colon (without mention of hemorrhage) - GERD (gastroesophageal reflux disease) 10/01/2017 - Hives - Intramural leiomyoma of uterus - Rectal bleed 09/05/14 - Unspecified hypothyroidism PAST SURGICAL HISTORY Procedure Laterality Date - CERVIX UTERI CAUTER CRYOCAUTER 1999 - COLONOSCOP W/ OR W/O [facility] SPEC 04/10/09 - COLONOSCOP W/ OR W/O [facility] SPEC 09/05/14 Repeat 2024 - COLPOSCOPY (VAGINOSCOPY) Multiple starting 1995 Colposcopy - LAPAROSCOPIC HEMICOLECTOMY 12/07/2009 diverticulitis - LIGATE FALLOPIAN TUBE Tubal ligation - PAST SURGICAL HISTORY OF 10/2008 T9-L1 fusion, Dr. Lemon - PAST SURGICAL HISTORY OF 10/24/2009 Removed T9-L1, 2 rods and 8 screws, Dr Lemon - REMOVAL GALLBLADDER Cholecystectomy - REPAIR INTERCARP/CARP-METACARP JT Right 10/13/2017 Right thumb CMC arthroplasty with LRTI Current Outpatient Prescriptions: neomycin 500 mg tablet Take 2 tablets by mouth four times daily. 2 TABLETS AT 6, 8 ,AND 10 PM Disp: 6 tablet Rfl: 0 metroNIDAZOLE (FLAGYL) 500 mg tablet Take 1 tablet by mouth three times daily. 2 TABLETS AT 6, 8, AND 10 PM Disp: 6 tablet Rfl: 0 peg 3350-Electrolytes (GOLYTELY) 236-22.74-6.74 -5.86 gram suspension Take 4,000 mL by mouth one time only for 1 dose. Disp: 1 Bottle Rfl: 0 levothyroxine (SYNTHROID) 75 mcg tablet TAKE 1 TABLET ONCE DAILY ON AN EMPTY STOMACH FOR THYROID Disp: 90 tablet Rfl: 1 acetaminophen (TYLENOL) 325 mg cap Take by mouth as needed. Disp: Rfl: promethazine (PHENERGAN) 12.5 mg tablet Take 1 tablet by mouth every 6 hours as needed. Disp: 20 tablet Rfl: 1 multivitamins(DAILY MULTIVITAMIN TAB) Take one(1) tablet daily. Disp: Rfl: 0 ASPIRIN 81 MG TAB Take one(1) tablet daily. Disp: Rfl: 0 No current facility-administered medications for this visit. ALLERGIES: Environmental [Other]; Hay Fever [Seasonal Allergies]; Zyrtec [Cetirizine Hcl] PERSONAL HISTORY: Social History Marital status: Spouse name: Years of education: Number of children: 2 Occupational History Occupation Employer Comment [employer] Social History Main Topics Smoking status: Never Smoker Smokeless tobacco: Never Used Comment: No one in household smokes Alcohol use: Yes Comment: Rarely Drug use: No Sexual activity: Yes Partners with: Male control/protection: Tubal Ligation FAMILY HISTORY: FAMILY HISTORY Problem Relation Age of Onset - Hypertension Mother - Thyroid Mother - Heart Father - Hypertension Father - Heart Maternal Grandmother - Stroke Maternal Grandmother - Cancer Maternal Grandmother COLON - Cancer Paternal Grandmother STOMACH REVIEW OF SYMPTOMS: The review of systems data was entered by the nurse and reviewed by me There are no exam notes on file for this visit. REVIEW OF SYSTEMS: General: The patient denies fatigue, denies weight loss, denies weight gain, denies feeling hot, and denies feelings of cold. Eyes: The patient denies glaucoma, denies eye injury/surgery, wears glasses or contacts. Ear/Nose/Throat: The patient NOTES allergies, NOTES hayfever, denies ear infections, and denies bloody noses. Cardiovascular: The patient denies chest pain, denies heart disease, denies high blood pressure,denies cardiac stent, denies prior heart attack, denies irregular heart beat, denies high cholesterol, denies poor circulation, denies heart failure, other cardiac issues, denies claudication, denies cold feet, denies peripheral arterial stent. Respiratory: The patient denies tuberculosis, denies pneumonia, denies frequent cough, denies pulmonary embolism, denies shortness of breath, and denies coughing up blood. Gastrointestinal: The patient denies difficulty swallowing, denies acid reflux, denies ulcers, denies vomiting, denies jaundice/hepatitis, denies gallbladder problems, denies black or tarry stools, denies hemorrhoids, denies bleeding from rectum, NOTES diverticulitis, NOTES constipation, denies diarrhea, denies loss of stool control, and denies hernias. Kidney/Bladder: The patient denies kidney stones, denies urine infections, and denies bloody urine. Skin: The patient denies a history of skin cancer, denies bleeding/changing moles, and denies a history of skin rash. Neurologic: The patient denies a history of epilepsy/convulsions, denies headaches, denies head/spinal injuries, and denies stroke/TIA. Psychiatric: The patient denies psychiatric medications, denies depression, and denies voices, denies substance abuse. Endocrine: The patient NOTES thyroid disorders, denies diabetes, and denies hormonal problems. Hematologic: The patient denies a history of bruising, denies bleeding, and denies anemia, denies blood clots. Infections: The patient denies a history of measles and mumps, denies rheumatic fever, and denies sexually transmitted diseases. Musculoskeletal: The patient NOTES back pain/injury, denies back problems, denies sciatica, denies knee/foot trouble, NOTES arthritis, or denies gout. ? PHYSICAL EXAMINATION: General: The patient is 57 year old female, well nourished, well hydrated in no acute distress. The patient is oriented to time, place, and person. VITALS: LMP 01/07/2011 There is no height or weight on file to calculate BMI. HEENT: Normal cephalic, ataumatic, pupils are equally round, sclera are anicteric, mucous membranes are moist, oropharynx is clear. Neck has no masses, asymmetry or lymphadenopathy. Thyroid is unremarkable. Respiratory: Clear to auscultation and percussion. Normal respiratory excursion and pattern. Cardiac: Examination is regular rate and rhythm. Abdominal exam: Soft, nontender, with no palpable masses. No hepatosplenomegaly. No palpable hernias. Rectal exam: exam deferred Extremities: no clubbing, cyanosis or edema. No adenopathy. LABORATORY VALUES: As Noted RADIOLOGIC STUDIES: As Noted Assessment IMPRESSION: Left lower quadrant pain, recurring diverticulitis, prior short segment sigmoid resection during episode of acute diverticulitis PLAN: We extensively discussed the diagnosis and discussed the surgical options. The patient has elected to undergo colon resction I plan to perform a Laparoscopic Low Anterior Resection - 71177-377. The planned surgical procedure was discussed extensively with the patient. The risks, benefits, anticipated outcomes and possible complications and alternatives were discussed. My staff has also explained the procedure in understandable terms and the patient was given the option to take printed material concerning the planned procedure. The patient had the opportunity to ask questions concerning the planned procedure. The patient freely consents to the planned procedure. I will plan for outpatient bowel preparation including mechanical preparation on the night before endoscopy, which is currently planned for December [address] Grace. Following colonoscopy, the patient will be maintained on clear liquids that day and complete the antibiotic preparation including Neomycin and Flagyl 1gm each at 6,8, and 10pm the night before surgery. She'll be admitted to surgery on December 23. I plan to have Dr. Fred Johnson place a left ureteral catheter given the previous surgical history. Anticipated Surgical Procedure/ CPT Code: Laparoscopic Low Anterior Resection - 40500-016 and Lap Mobilization of the Splenic Flexure - +04443-125 Anticipated Anesthetic: General Patient weight: Last menstrual period 01/07/2011. BMI: There is no height or weight on file to calculate BMI. 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 Broderick Ohara MD 12/09/2017 HISTORY AND PHYSICAL - COLON RESECTION FOR LEFT LOWER QUADRANT PAIN, RECURRENT DIVERTICULITIS Asia M Chandan 1960 December 09, 2017 REFERRING PHYSICIAN: Lola Grace MD CHIEF COMPLAINT: Left lower quadrant pain HPI: The patient is a 57 year old female with a complaint of recurring left lower quadrant pain. The patient underwent a sigmoid colectomy by Dr. Bar Grace in 2009. This was while the patient was hospitalized with an episode of acute diverticulitis. The patient states she had 6 inches of her colon removed at that time. The patient's surgical procedure was December 07, 2009. She underwent sigmoid colectomy for acute perforated diverticulitis. This was done in the emergency procedure. This was performed laparoscopically. A segment of inflamed colon was removed. Due to the fact that a longer rectal stump was left in place. A handsewn anastomosis was performed by Dr. Grace. The patient recalls she was in the hospital for approximately 1 week postoperatively. No mention of leak or other complications were noted, but discharge summary was not able to be obtained. Pathology noted an 8 cm length of sigmoid colon. Since that time. The patient is noted one to 2 episodes of diverticulitis and left lower quadrant pain per year. Usually this had resolved with oral antibiotics. The patient underwent colonoscopy in 2014 for rectal bleeding which demonstrated diverticulosis in the sigmoid area without other abnormalities. The patient presented to Dr. Grace with the above complaints of recurring left lower quadrant pain and likely chronically recurring diverticulitis. The patient since then notes a degree of discomfort and bloating after eating food. She noted discomfort after her bowel prep, which she was able to tolerate the lower volume. Bowel prep of Mirialx/Gatorade and Dulcolax CT scan was obtained which demonstrated a 4 cm left ovarian cystic type mass and sigmoid diverticulosis. A barium enema was obtained which demonstrated sigmoid diverticulosis with a few other diverticula throughout the colon and no other specific abnormalities. The patient was evaluated by Dr. Valadez for her left ovarian cyst. Ultrasound following the CAT Scan Was Performed at [facility] [place] and demonstrated no abnormal masses in the left or right ovary The patient is being seen by me today at the request of Dr. Grace for my opinion and advice regarding sigmoid resection for recurring diverticulitis and left lower quadrant pain. PAST MEDICAL HISTORY Diagnosis Date - Abnormal Papanicolaou smear of vagina and vaginal HPV - Diverticulitis of sigmoid colon 12/07/2009 ACUTE - Diverticulosis of colon (without mention of hemorrhage) - GERD (gastroesophageal reflux disease) 10/01/2017 - Hives - Intramural leiomyoma of uterus - Rectal bleed 09/05/14 - Unspecified hypothyroidism PAST SURGICAL HISTORY Procedure Laterality Date - CERVIX UTERI CAUTER CRYOCAUTER 1999 - COLONOSCOP W/ OR W/O BRSH SPEC 04/10/09 - COLONOSCOP W/ OR W/O BRSH SPEC 09/05/14 Repeat 2024 - COLPOSCOPY (VAGINOSCOPY) Multiple starting 1995 Colposcopy - LAPAROSCOPIC HEMICOLECTOMY 12/07/2009 diverticulitis - LIGATE FALLOPIAN TUBE Tubal ligation - PAST SURGICAL HISTORY OF 10/2008 T9-L1 fusion, Dr. Lemon - PAST SURGICAL HISTORY OF 10/24/2009 Removed T9-L1, 2 rods and 8 screws, Dr Lemon - REMOVAL GALLBLADDER Cholecystectomy - REPAIR INTERCARP/CARP-METACARP JT Right 10/13/2017 Right thumb CMC arthroplasty with LRTI Current Outpatient Prescriptions: neomycin 500 mg tablet Take 2 tablets by mouth four times daily. 2 TABLETS AT 6, 8 ,AND 10 PM Disp: 6 tablet Rfl: 0 metroNIDAZOLE (FLAGYL) 500 mg tablet Take 1 tablet by mouth three times daily. 2 TABLETS AT 6, 8, AND 10 PM Disp: 6 tablet Rfl: 0 peg 3350-Electrolytes (GOLYTELY) 236-22.74-6.74 -5.86 gram suspension Take 4,000 mL by mouth one time only for 1 dose. Disp: 1 Bottle Rfl: 0 levothyroxine (SYNTHROID) 75 mcg tablet TAKE 1 TABLET ONCE DAILY ON AN EMPTY STOMACH FOR THYROID Disp: 90 tablet Rfl: 1 acetaminophen (TYLENOL) 325 mg cap Take by mouth as needed. Disp: Rfl: promethazine (PHENERGAN) 12.5 mg tablet Take 1 tablet by mouth every 6 hours as needed. Disp: 20 tablet Rfl: 1 multivitamins(DAILY MULTIVITAMIN TAB) Take one(1) tablet daily. Disp: Rfl: 0 ASPIRIN 81 MG TAB Take one(1) tablet daily. Disp: Rfl: 0 No current facility-administered medications for this visit. ALLERGIES: Environmental [Other]; Hay Fever [Seasonal Allergies]; Zyrtec [Cetirizine Hcl] PERSONAL HISTORY: Social History Marital status: Spouse name: Years of education: Number of children: 2 Occupational History Occupation Employer Comment [employer] Social History Main Topics Smoking status: Never Smoker Smokeless tobacco: Never Used Comment: No one in household smokes Alcohol use: Yes Comment: Rarely Drug use: No Sexual activity: Yes Partners with: Male control/protection: Tubal Ligation FAMILY HISTORY: FAMILY HISTORY Problem Relation Age of Onset - Hypertension Mother - Thyroid Mother - Heart Father - Hypertension Father - Heart Maternal Grandmother - Stroke Maternal Grandmother - Cancer Maternal Grandmother COLON - Cancer Paternal Grandmother STOMACH REVIEW OF SYMPTOMS: The review of systems data was entered by the nurse and reviewed by me There are no exam notes on file for this visit. REVIEW OF SYSTEMS: General: The patient denies fatigue, denies weight loss, denies weight gain, denies feeling hot, and denies feelings of cold. Eyes: The patient denies glaucoma, denies eye injury/surgery, wears glasses or contacts. Ear/Nose/Throat: The patient NOTES allergies, NOTES hayfever, denies ear infections, and denies bloody noses. Cardiovascular: The patient denies chest pain, denies heart disease, denies high blood pressure,denies cardiac stent, denies prior heart attack, denies irregular heart beat, denies high cholesterol, denies poor circulation, denies heart failure, other cardiac issues, denies claudication, denies cold feet, denies peripheral arterial stent. Respiratory: The patient denies tuberculosis, denies pneumonia, denies frequent cough, denies pulmonary embolism, denies shortness of breath, and denies coughing up blood. Gastrointestinal: The patient denies difficulty swallowing, denies acid reflux, denies ulcers, denies vomiting, denies jaundice/hepatitis, denies gallbladder problems, denies black or tarry stools, denies hemorrhoids, denies bleeding from rectum, NOTES diverticulitis, NOTES constipation, denies diarrhea, denies loss of stool control, and denies hernias. Kidney/Bladder: The patient denies kidney stones, denies urine infections, and denies bloody urine. Skin: The patient denies a history of skin cancer, denies bleeding/changing moles, and denies a history of skin rash. Neurologic: The patient denies a history of epilepsy/convulsions, denies headaches, denies head/spinal injuries, and denies stroke/TIA. Psychiatric: The patient denies psychiatric medications, denies depression, and denies voices, denies substance abuse. Endocrine: The patient NOTES thyroid disorders, denies diabetes, and denies hormonal problems. Hematologic: The patient denies a history of bruising, denies bleeding, and denies anemia, denies blood clots. Infections: The patient denies a history of measles and mumps, denies rheumatic fever, and denies sexually transmitted diseases. Musculoskeletal: The patient NOTES back pain/injury, denies back problems, denies sciatica, denies knee/foot trouble, NOTES arthritis, or denies gout. ? PHYSICAL EXAMINATION: General: The patient is 57 year old female, well nourished, well hydrated in no acute distress. The patient is oriented to time, place, and person. VITALS: LMP 01/07/2011 There is no height or weight on file to calculate BMI. HEENT: Normal cephalic, ataumatic, pupils are equally round, sclera are anicteric, mucous membranes are moist, oropharynx is clear. Neck has no masses, asymmetry or lymphadenopathy. Thyroid is unremarkable. Respiratory: Clear to auscultation and percussion. Normal respiratory excursion and pattern. Cardiac: Examination is regular rate and rhythm. Abdominal exam: Soft, nontender, with no palpable masses. No hepatosplenomegaly. No palpable hernias. Rectal exam: exam deferred Extremities: no clubbing, cyanosis or edema. No adenopathy. LABORATORY VALUES: As Noted RADIOLOGIC STUDIES: As Noted Assessment IMPRESSION: Left lower quadrant pain, recurring diverticulitis, prior short segment sigmoid resection during episode of acute diverticulitis PLAN: We extensively discussed the diagnosis and discussed the surgical options. The patient has elected to undergo colon resction I plan to perform a Laparoscopic Low Anterior Resection - 15787-007. The planned surgical procedure was discussed extensively with the patient. The risks, benefits, anticipated outcomes and possible complications and alternatives were discussed. My staff has also explained the procedure in understandable terms and the patient was given the option to take printed material concerning the planned procedure. The patient had the opportunity to ask questions concerning the planned procedure. The patient freely consents to the planned procedure. I will plan for outpatient bowel preparation including mechanical preparation on the night before endoscopy, which is currently planned for December [address] Grace. Following colonoscopy, the patient will be maintained on clear liquids that day and complete the antibiotic preparation including Neomycin and Flagyl 1gm each at 6,8, and 10pm the night before surgery. She'll be admitted to surgery on December 23. I plan to have Dr. Fred Johnson place a left ureteral catheter given the previous surgical history. Anticipated Surgical Procedure/ CPT Code: Laparoscopic Low Anterior Resection - 62050-481 and Lap Mobilization of the Splenic Flexure - +28831-434 Anticipated Anesthetic: General Patient weight: Last menstrual period 01/07/2011. BMI: There is no height or weight on file to calculate BMI. 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 Broderick Ohara MD I have reviewed the above history and physical exam. There have been no significant changes Broderick Ohara MD 12/09/2017 Encounter Status:Closed by BRODERICK OHARA MD on 12/09/17 SURGICAL PATHOLOGY Observed: 12/07/2017 Status: F Source: [place] 2:55 PM [facility] REPOSITORY Specimen originated from [facility] Specimen #: [id number] Submitting Physician: ERIKA VALADEZ MD FINAL DIAGNOSIS A. Skin, perineum, vulva, biopsy - Subacute spongiotic dermatitis, see comment. AF/MGU/plmaulik 12/13/2017 COMMENT Histologic sections demonstrate confluent parakeratosis overlying an irregularly acanthotic epidermis with mild spongiosis. The granular layer is focally thickened. Within the superficial dermis, there is a perivascular infiltrate composed mostly of lymphocytes and plasma cells. Occasional red blood cell extravasation is noted. Eosinophils are inconspicuous. To evaluate for an infectious process, special stains for PAS, Gram and GMS were performed at the [facility] and compared to appropriate controls. These stains are negative for bacterial microorganisms, fungal yeast and hyphae forms. In summary, the histologic features are most consistent with an eczematous dermatitis. The differential diagnosis would include contact dermatitis, atopic dermatitis or nummular dermatitis. Clinical correlation is recommended. Manny Carranza M.D. PhD (Electronic Signature) SPECIMEN SUBMITTED A: PERINEUM, VULVA, BIOPSY CLINICAL DATA vulvar itching GROSS DESCRIPTION A. Received in formalin is a cylindrical segment of skin measuring 0.4 x 0.4 x 0.4 cm. The specimen is bisected. Totally submitted in formalin in one cassette. Gross examination performed at [facility], [address] [place] [address] 12/09/2017 1:51:04 AM Date of Report: 12/16/2017 Date of Procedure: 12/07/2017 Date of Receipt: 12/08/2017 Submitted by: ERIKA VALADEZ MD Location: [facility] Diagnostic interpretation performed at [place] [address]. CNOV Observed: 12/07/2017 Status: COMPLETED Source: [place] 2:40 PM [facility] REPOSITORY Office Visit (WOOB) ASIA HAWLEY Javier ([id number]) 1960 F Date Time Provider Department 12/07/17 2:40 PM ERIKA VALADEZ During your visit today, we recorded the following information about you: Blood pressure Weight 102/62 81.6 kg Erika Valadez MD 12/07/2017 2:57 PM Signed Asiayumiko Hawley is a 57 year old female who presents today for a vulvar biopsy. Indication: persistent pruritis. UNIVERSAL PROTOCOL / SAFETY CHECKLIST Procedure to be performed: Vulvar Biopsy Sign in Communication: Completed Time Out: Team Confirms the Correct Patient, Correct Procedure, Correct Site and Site Marking, Correct Position (if applicable), Prep and Dry Time (if applicable). Time: 14:45 Affirmation of Time Out: YES Sign Out Discussion: Completed PROCEDURE NOTE: GROSS LESIONS: No BIOPSY: Area was cleansed with betadine and anesthetized with 2mL 1% lidocaine with 1:100,000 epi. 4mm [place] punch used to biopsy region. HEMOSTASIS: Obtained with silver nitrate Procedure Summary: Patient tolerated procedure well. ASSESSMENT: Vulvar itching PLAN: Specimens labeled and sent to Pathology. Will notify patient of results in 1-2 weeks. Post-procedure instructions reviewed and written material given to the patient. Ovarian cyst - check repeat US prior to surgery with HPV positive - schedule colpo this week Erika Valadez MD [facility] 12/07/2017 2:21 PM Signed VULVAR BIOPSY PATIENT INSTRUCTIONS Many conditions may cause your surgical resident to suggest a vulvar biopsy including vulvar itching unresponsive to therapy, ulcerated lesions, pigmented lesions, and tumors. The biopsy result will assist your surgical resident to devise a treatment plan suitable to your condition. 1. Usually, there is a local discomfort, swelling, and skin discoloration. Using cold compresses overnight usually alleviates the discomfort considerably. Warm compresses thereafter can be used as needed. Prescribed analgesic (pain killers) are not necessary. You may use Advil, Tylenol, etc. for pain relief. 2. You may shower or take tub baths. 3. If sutures are used, they will dissolve in 7-14 days. 4. You should call the office if there is excessive bleeding, swelling, fever, chills, sweats, or difficulty walking. 5. Biopsy results will be available in 7-10 days. If you have not heard your results in 2 weeks please contact your physician. Referring Provider: SELF [[id number]] Allergies As of Date: 12/07/2017 Noted Allergy Reaction environmental [Other] 12/28/2006 Comments: ? what=congestion HAY FEVER (SEASONAL ALLERGIES) 08/13/2009 ZYRTEC (CETIRIZINE HCL) 08/06/2014 9 - Itching Date Reviewed: 12/07/2017 Reviewed by: Erika Valadez - Fully Assessed Primary Visit Diagnosis:Vulvar itching [L29.2] Other Visit Diagnosis:Cyst of ovary, unspecified laterality [N83.209] Order(s):SURGICAL PATHOLOGY [[id number]] Order #: [id number] PELVIC US WHI [[id number]] Order #: [id number]: 1 Prescriptions as of 12/07/2017 Sig: LEVOTHYROXINE 75 MCG TABLET TAKE 1 TABLET ONCE DAILY ON A* ACETAMINOPHEN 325 MG CAPSULE Take by mouth as needed. PROMETHAZINE 12.5 MG TABLET Take 1 tablet by mouth every * * DAILY MULTIVITAMIN TABLET Take one(1) tablet daily. * ASPIRIN 81 MG TABLET Take one(1) tablet daily. Problem List As Of Date 12/07/2017 Noted Resolved Hypothyroidism [E03.9] Abnormal Papanicolaou Smear of Vagina and Vagin* 02/06/2010 Dyspareunia [CEQ8906] INVALID FOR*02/06/2010 Fx Sacrum/Coccyx-Closed [S32.10XA, S32.2XXA] INVALID FOR*02/06/2010 Fx Dorsal Vertebra-Closed [S22.009A] INVALID FOR*02/06/2010 Diverticulosis [K57.90] INVALID FOR* Calcaneal spur [M77.30] INVALID FOR*10/01/2017 Hives [L50.9] 10/01/2017 Chronic urticaria [L50.8] INVALID FOR*10/01/2017 Open wound(s) (multiple) of unspecified site(s)*INVALID FOR*10/01/2017 Primary osteoarthritis of first carpometacarpal*INVALID FOR* More... Obesity, Class I, BMI 30-34.9 E66.9 [E66.9] INVALID FOR* GERD (gastroesophageal reflux disease) [K21.9] INVALID FOR* Other instructions from your clinician: VULVAR BIOPSY PATIENT INSTRUCTIONS Many conditions may cause your surgical resident to suggest a vulvar biopsy including vulvar itching unresponsive to therapy, ulcerated lesions, pigmented lesions, and tumors. The biopsy result will assist your surgical resident to devise a treatment plan suitable to your condition. 1. Usually, there is a local discomfort, swelling, and skin discoloration. Using cold compresses overnight usually alleviates the discomfort considerably. Warm compresses thereafter can be used as needed. Prescribed analgesic (pain killers) are not necessary. You may use Advil, Tylenol, etc. for pain relief. 2. You may shower or take tub baths. 3. If sutures are used, they will dissolve in 7-14 days. 4. You should call the office if there is excessive bleeding, swelling, fever, chills, sweats, or difficulty walking. 5. Biopsy results will be available in 7-10 days. If you have not heard your results in 2 weeks please contact your physician. Encounter Status:Closed by ERIKA VALADEZ MD on 12/07/17 PROGRESS Observed: 12/07/2017 Status: COMPLETED Source: [place] 2:21 PM [facility] RE[facility]ITORY HNO ID: [id number] Author: Erika Valadez Service: (none) Author Type: Physician Type: Progress Notes Filed: 12/07/2017 2:57 PM Note Text: Asia Hawley is a 57 year old female who presents today for a vulvar biopsy. Indication: persistent pruritis. UNIVERSAL PROTOCOL / SAFETY CHECKLIST Procedure to be performed: Vulvar Biopsy Sign in Communication: Completed Time Out: Team Confirms the Correct Patient, Correct Procedure, Correct Site and Site Marking, Correct Position (if applicable), Prep and Dry Time (if applicable). Time: 14:45 Affirmation of Time Out: YES Sign Out Discussion: Completed PROCEDURE NOTE: GROSS LESIONS: No BIOPSY: Area was cleansed with betadine and anesthetized with 2mL 1% lidocaine with 1:100,000 epi. 4mm [place] punch used to biopsy region. HEMOSTASIS: Obtained with silver nitrate Procedure Summary: Patient tolerated procedure well. ASSESSMENT: Vulvar itching PLAN: Specimens labeled and sent to Pathology. Will notify patient of results in 1-2 weeks. Post-procedure instructions reviewed and written material given to the patient. Ovarian cyst - check repeat US prior to surgery with HPV positive - schedule colpo this week Erika Valadez MD PROGRESS Observed: 12/07/2017 Status: COMPLETED Source: [place] 9:43 AM [facility] CAMPUS REPOSITORY HNO ID: [id number] Author: Monika (Camryn Romero Service: (none) Author Type: Occupational Therapist Type: Progress Notes Filed: 12/07/2017 2:16 PM Note Text: Episode Visit Count: 2 Therapist That Will Oversee The Plan Of Care: Monika Romero Start of Care Date: 11/23/17 Onset Date: 10/13/17 Patient Identified by Name and Date of : Yes REHABILITATION AND SPORTS THERAPY OCCUPATIONAL THERAPY TREATMENT NOTE ASSESSMENT: Asia Hawley demonstrated difficulty with heavy use of hand lifting and carrying. The patient will continue to benefit from continued skilled occupational therapy for exercises, modalities and manual techniques PLAN FOR NEXT VISIT: assess tolerance to weight and putty exercises, upgrade HEP as needed, on hold or possible discharge as pt will be having abdominal surgery the following week SUBJECTIVE: Pt reports she has been going with softer support more, using firm support less, reports she will be having surgery on 12/23 on her colon, so many not be able to come in for OT treatment for a while Pain Score: 0/10 Pain Location: Wrist - Right;Thumb - Right Description: Stiffness Frequency: Continuous Post Treatment Pain Score: 0/10 Pain Location: Wrist - Right;Thumb - Right Post Treatment Pain Description: Stiffness OBJECTIVE MEASURES WITH LEVEL OF FUNCTION: TREATMENT: Therapeutic Exercise: 1: wrist flex/ext, dev sup pro x 10 2: thumb flex ext, palamr and radial abduction and opposition 3: soft putty collar feller digit extension roll, digit flexion and thrpod pinch x 10 4: 1# weight wrist flexion, extension deviation and sup/pro x 10 Skilled Intervention: Patient was educated in proper exercise technique and purpose for exercises. Skilled judgment was provided in selection of appropriate interventions. Provided written instruction for home exercise program to facilitate proper performance and compliance. Correct performance of therapeutic exercises was facilitated with verbal and visual cuing. Modalities: Fluidotherapy Body Region Treated - Fluidotherapy: right hand Patient Position: seated Temperature: 110 Minute(s): 10 Activity 1: AROM See flowsheet for details regarding treatment. Skilled Intervention: Proper administration and selection of modality based on clinical presentation, deficits, and needs. Patient response monitored throughout treatment. Billing: Lisa: Therapeutic Exercise (75841): 1:1 time:30 minutes (2 units: 23-37 mins) Fluidotherapy (36342) 1 unit(s) Total time: 40 minutes Monika Romero OT/DYLAN CNTHERAPY Observed: 12/07/2017 Status: COMPLETED Source: [place] 9:30 AM [facility] REPOSITORY OT/PT/Speech Visit ([facility]) ASIA HAWLEY ([id number]) 1960 F Date Time Provider Department 12/07/17 9:30 AM MONIKA ROMERO (OT) [facility] Date Time Provider Department Center 12/07/2017 9:30 AM [id number], MONIKA [facility] Reason for Visit: Occupational Therapy [504] Primary Visit Diagnosis:Primary osteoarthritis of first carpometacarpal joint of right hand [M18.11] Allergies As of Date: 12/07/2017 Noted Allergy Reaction environmental [Other] 12/28/2006 Comments: ? what=congestion HAY FEVER (SEASONAL ALLERGIES) 08/13/2009 ZYRTEC (CETIRIZINE HCL) 08/06/2014 9 - Itching Date Reviewed: 12/03/2017 Reviewed by: Lola Grace - Fully Assessed Prescriptions as of 12/07/2017 Sig: LEVOTHYROXINE 75 MCG TABLET TAKE 1 TABLET ONCE DAILY ON A* ACETAMINOPHEN 325 MG CAPSULE Take by mouth as needed. PROMETHAZINE 12.5 MG TABLET Take 1 tablet by mouth every * * DAILY MULTIVITAMIN TABLET Take one(1) tablet daily. * ASPIRIN 81 MG TABLET Take one(1) tablet daily. Progress Notes: Monika Romero OT/Glory 12/07/2017 2:16 PM Signed Episode Visit Count: 2 Therapist That Will Oversee The Plan Of Care: Monika Romero Start of Care Date: 11/23/17 Onset Date: 10/13/17 Patient Identified by Name and Date of : Yes REHABILITATION AND SPORTS THERAPY OCCUPATIONAL THERAPY TREATMENT NOTE ASSESSMENT: Asia Hawley demonstrated difficulty with heavy use of hand lifting and carrying. The patient will continue to benefit from continued skilled occupational therapy for exercises, modalities and manual techniques PLAN FOR NEXT VISIT: assess tolerance to weight and putty exercises, upgrade HEP as needed, on hold or possible discharge as pt will be having abdominal surgery the following week SUBJECTIVE: Pt reports she has been going with softer support more, using firm support less, reports she will be having surgery on 12/23 on her colon, so many not be able to come in for OT treatment for a while Pain Score: 0/10 Pain Location: Wrist - Right;Thumb - Right Description: Stiffness Frequency: Continuous Post Treatment Pain Score: 0/10 Pain Location: Wrist - Right;Thumb - Right Post Treatment Pain Description: Stiffness OBJECTIVE MEASURES WITH LEVEL OF FUNCTION: TREATMENT: Therapeutic Exercise: 1: wrist flex/ext, dev sup pro x 10 2: thumb flex ext, palamr and radial abduction and opposition 3: soft putty collar feller digit extension roll, digit flexion and thrpod pinch x 10 4: 1# weight wrist flexion, extension deviation and sup/pro x 10 Skilled Intervention: Patient was educated in proper exercise technique and purpose for exercises. Skilled judgment was provided in selection of appropriate interventions. Provided written instruction for home exercise program to facilitate proper performance and compliance. Correct performance of therapeutic exercises was facilitated with verbal and visual cuing. Modalities: Fluidotherapy Body Region Treated - Fluidotherapy: right hand Patient Position: seated Temperature: 110 Minute(s): 10 Activity 1: AROM See flowsheet for details regarding treatment. Skilled Intervention: Proper administration and selection of modality based on clinical presentation, deficits, and needs. Patient response monitored throughout treatment. Billing: Gonzalez: Therapeutic Exercise (71357): 1:1 time:30 minutes (2 units: 23-37 mins) Fluidotherapy (71672) 1 unit(s) Total time: 40 minutes Monika Romero OT/DYLAN Annotated image of OT HAND WRIST STRENGTHENING last updated by Monika Romero on 12/07/2017 9:46 AM Annotated image of OT HAND THERAPUTTY EXERCISES PG 1 last updated by Monika Romero on 12/07/2017 9:46 AM Annotated image of OT HAND THERAPUTTY EXERCISES PG 2 last updated by Monika Romero on 12/07/2017 9:46 AM CNCO Observed: 12/06/2017 Status: COMPLETED Source: [place] 10:39 AM [facility] RE[facility]IT[facility] HNO ID: [id number] Author: Mammography Coordinator Service: (none) Author Type: Physician Type: Letter Filed: 12/07/2017 11:32 PM Note Text: December 06, 2017 PID: [id number] Asia Hawley [address] [place] [address] Dear Ms. Hawley, We are pleased to inform you that the results of your recent breast imaging exam on 12/06/2017 are normal. Early detection of cancer is very important. We also understand recommendations regarding breast cancer screening are controversial. Please discuss with your primary care provider which strategy is best for you and whether a mammogram is right for you. Your imaging studies and report will be kept on file at [facility] as part of your permanent medical record and are available for your continuing care. Thank you for allowing us to help in meeting your health care needs. Sincerely, Dr. Maxwell Interpreting Radiologist [facility] (Normal over 40) [facility] SCREENING Observed: 12/06/2017 Status: F Source: [place] 9:20 AM [facility] REPOSITORY * * *Final Report* * * DATE OF EXAM: Dec 06 2017 9:20AM WOW [id number] - [facility] SCREENING / PROCEDURE REASON: Encounter for screening mammogram for malignant neoplasm of breast * * * * Physician Interpretation * * * * RESULT: #[id number] - [facility] SCREENING BILATERAL DIGITAL SCREENING MAMMOGRAM WITH CAD: 12/06/2017 HISTORY: Encounter For Screening Mammogram For Malignant Neoplasm Of Breast /Screening Mammogram - patient reports NO breast symptoms /Priors available for comparison. RESULT: TECHNIQUE: The study was acquired using full field digital technology and interpreted from soft copy. Current study was also evaluated with a Computer Aided Detection (CAD). Comparison is made to exams dated: 12/01/2016 mammogram and 11/04/2015 mammogram - [facility]. There are scattered fibroglandular elements in both breasts. No significant masses, calcifications, or other findings are seen in either breast. There has been no significant interval change. IMPRESSION: NEGATIVE There is no mammographic evidence of malignancy. A 1 year screening mammogram is recommended. The exam was reviewed by a staff physician. Anika Card M.D. mikal hannah/kaushal:12/06/2017 10:39:23 Box Bender: Ilda HEWITT)(Javier), [facility] letter sent: Normal over 40 Mammogram BI-RADS: 1 Negative Manager Statistical Programming: Kaushal Transcribe Date/Time: Dec 06 2017 8:58A Dictated by: KARLA CARD MD This examination was interpreted and the report reviewed and electronically signed by: ANIKA MAXWELL MD on Dec 06 2017 10:39AM EST [id number] Observed: 12/06/2017 Status: COMPLETED Source: [place] 12:00 AM [facility] RE[facility]IT[facility] Patient:Asia Hawley MRN: <[id number]> Height:5' 4.567(1.64 m) Weight:173 lb 12.8 oz (78.835 kg) Outpatient Medications as of 12/22/17: miSOPROStol (CYTOTEC) 200 mcg tablet neomycin 500 mg tablet metroNIDAZOLE (FLAGYL) 500 mg tablet levothyroxine (SYNTHROID) 75 mcg tablet acetaminophen (TYLENOL) 325 mg cap promethazine (PHENERGAN) 12.5 mg tablet multivitamins(DAILY MULTIVITAMIN TAB) Admission/Clinic Administered Medications as of 12/22/17: lactated ringers infusion Problem List: Hypothyroidism [E03.9] Diverticulosis [K57.90] Primary osteoarthritis of first carpometacarpal joint of right hand [M18.11] Obesity, Class I, BMI 30-34.9 E66.9 [E66.9] GERD (gastroesophageal reflux disease) [K21.9] Allergies: environmental [Other] Hay Fever [Seasonal Allergies] Zyrtec [Cetirizine Hcl] Date Verified: 12/22/17 Lab Values No results within the last 30 days for the following basenames: K,HCT Progress Notes ([facility]): Erika Valadez MD 12/21/2017 5:14 PM Signed Asia Hawley is a 57 year old female who presents for pre-op. HPI: Patient presents for pre-op. She denies complaints. PAST MEDICAL HISTORY Diagnosis Date - Abnormal Papanicolaou smear of vagina and vaginal HPV - Diverticulitis of sigmoid colon 12/07/2009 ACUTE - Diverticulosis of colon (without mention of hemorrhage) - GERD (gastroesophageal reflux disease) 10/01/2017 - Hives - Intramural leiomyoma of uterus - Rectal bleed 09/05/14 - Unspecified hypothyroidism PAST SURGICAL HISTORY Procedure Laterality Date - CERVIX UTERI CAUTER CRYOCAUTER 1999 - COLONOSCOP W/ OR W/O [facility] SPEC 04/10/09 - COLONOSCOP W/ OR W/O [facility] SPEC 09/05/14 Repeat 2024 - COLPOSCOPY (VAGINOSCOPY) Multiple starting 1995 Colposcopy - LAPAROSCOPIC HEMICOLECTOMY 12/07/2009 diverticulitis - LIGATE FALLOPIAN TUBE Tubal ligation - PAST SURGICAL HISTORY OF 10/2008 T9-L1 fusion, Dr. Lemon - PAST SURGICAL HISTORY OF 10/24/2009 Removed T9-L1, 2 rods and 8 screws, Dr Lemon - REMOVAL GALLBLADDER Cholecystectomy - REPAIR INTERCARP/CARP-METACARP JT Right 10/13/2017 Right thumb CMC arthroplasty with LRTI FAMILY HISTORY Problem Relation Age of Onset - Hypertension Mother - Thyroid Mother - Heart Father - Hypertension Father - Heart Maternal Grandmother - Stroke Maternal Grandmother - Cancer Maternal Grandmother COLON - Cancer Paternal Grandmother STOMACH Social History Marital status: Spouse name: Years of education: Number of children: 2 Occupational History Occupation Employer Comment [employer] Social History Main Topics Smoking status: Never Smoker Smokeless tobacco: Never Used Comment: No one in household smokes Alcohol use: Yes Comment: Rarely Drug use: No Sexual activity: Yes Partners with: Male control/protection: Tubal Ligation Current Outpatient Prescriptions: neomycin 500 mg tablet Take 2 tablets by mouth four times daily. 2 TABLETS AT 6, 8 ,AND 10 PM levothyroxine (SYNTHROID) 75 mcg tablet TAKE 1 TABLET ONCE DAILY ON AN EMPTY STOMACH FOR THYROID acetaminophen (TYLENOL) 325 mg cap Take by mouth as needed. promethazine (PHENERGAN) 12.5 mg tablet Take 1 tablet by mouth every 6 hours as needed. multivitamins(DAILY MULTIVITAMIN TAB) Take one(1) tablet daily. miSOPROStol (CYTOTEC) 200 mcg tablet 2 tablets as directed. Take 2 tabs the night before AND 2 tabs the morning of the procedure - vaginally. metroNIDAZOLE (FLAGYL) 500 mg tablet Take 1 tablet by mouth three times daily. 2 TABLETS AT 6, 8, AND 10 PM (Patient not taking: Reported on 12/21/2017 ) No current facility-administered medications for this visit. Allergies As of Date: 12/21/2017 Allergen Noted Reaction ENVIRONMENTAL [OTHER] 12/28/2006 HAY FEVER [SEASONAL ALLERGIES] 08/13/2009 ZYRTEC [CETIRIZINE HCL] 08/06/2014 Itching Fully Assessed 12/21/2017 Allergies and current medication updated:Yes EXAM: BP 104/64 Pulse 70 Resp 18 Ht 5' 4.567 (1.64m) Wt 173 lb 12.8 oz (78.8kg) LMP 01/07/2011 BMI 29.31 kg/(m2). GENERAL: pleasant, female in no apparent distress ASSESSMENT AND PLAN: 57yo female with thickened endometrium AND left ovarian cysts Discussed R/B/A of options. Will proceed with hysteroscopy with SOUMYA. Also possible BSO for persistent left ovarian cysts. Surgery is coordinated with her bowel surgery with [facility] . Erika Valadez MD Progress Notes ([facility]): lAie Sanabria LPN 12/16/2017 11:56 AM Signed ----- Message from Erika Valadez sent at 12/14/2017 5:29 PM EDT ----- Patient going to OR with AND next week We need to coordinate a manager multicultural doctor to be there for possible oophorectomy and hysteroscopy with MD Alie Barros LPN 12/16/2017 4:13 PM Signed Notified that Dr. Valadez will be doing the hysteroscopy Soumya on 12/23/17. Pre-op appointment scheduled PROGRESS Observed: 12/01/2017 Status: COMPLETED Source: [place] 8:59 PM [facility] RE[facility] HNO ID: [id number] Author: Lola Grace Service: (none) Author Type: Physician Type: Progress Notes Filed: 12/03/2017 1:25 PM Note Text: Asia Hawley 1960 REFERRING PHYSICIAN: Priyanka Smith MD CHIEF COMPLAINT: Consult (abdominal pain) HPI: The patient is a 57 year old female with a complaint of chronic left lower quadrant abdominal pain Had colonoscopy 2014 she states that she was told it was negative. Underwent urgent laparoscopic sigmoid colectomy for diverticulitis with small contained perforation in 2009 Was told that she had 6 inches removed. States that she has had episodes of diverticulitis since surgery - 1-2 per year. States that she has left lower quadrant and suprapubic pain since surgery. Has chronic constipation. Has bowel movement about every other day. Was told to stay away from nuts/popcorn/seeds, etc. Takes mag citrate on regular basis Tried to make an appointment at [facility] and was told that there was nothing that can be done Also noted to have left ovarian cyst, it was recommended by her surgical resident to undergo left salpingo-oopherectomy EGD 08/31/16 - normal I ordered ACBE - reveals very redundant colon, with significant diverticular disease of sigmoid and left colon also possible narrowing in this area, also possibility of polyp in right colon I have discussed case with Dr. Ohara and we both agree that patient would benefit from repeat colectomy. Patient is amenable to this. PAST MEDICAL HISTORY - Abnormal Papanicolaou smear of vagina and vaginal HPV - Diverticulitis of sigmoid colon 12/07/2009 ACUTE - Diverticulosis of colon (without mention of hemorrhage) - GERD (gastroesophageal reflux disease) 10/01/2017 - Hives - Intramural leiomyoma of uterus - Rectal bleed 09/05/14 - Unspecified hypothyroidism PAST SURGICAL HISTORY - CERVIX UTERI CAUTER CRYOCAUTER 1999 - COLONOSCOP W/ OR W/O [facility] SPEC 04/10/09 - COLONOSCOP W/ OR W/O [facility] SPEC 09/05/14 Repeat 2024 - COLPOSCOPY (VAGINOSCOPY) Multiple starting 1995 Colposcopy - LAPAROSCOPIC HEMICOLECTOMY 12/07/2009 Diverticulitis -perforated - LIGATE FALLOPIAN TUBE Tubal ligation - PAST SURGICAL HISTORY OF 10/2008 T9-L1 fusion, Dr. Lemon - PAST SURGICAL HISTORY OF 10/24/2009 Removed T9-L1, 2 rods and 8 screws, Dr Lemon - REMOVAL GALLBLADDER - REPAIR INTERCARP/CARP-METACARP JT Right 10/13/2017 Right thumb CMC arthroplasty with LRTI Current Outpatient Prescriptions: levothyroxine (SYNTHROID) 75 mcg tablet TAKE 1 TABLET ONCE DAILY ON AN EMPTY STOMACH FOR THYROID acetaminophen (TYLENOL) 325 mg cap Take by mouth as needed. promethazine (PHENERGAN) 12.5 mg tablet Take 1 tablet by mouth every 6 hours as needed. multivitamins(DAILY MULTIVITAMIN TAB) Take one(1) tablet daily. ASPIRIN 81 MG TAB Take one(1) tablet daily. ALLERGIES: Environmental [Other]; Hay Fever [Seasonal Allergies]; Zyrtec [Cetirizine Hcl] PERSONAL HISTORY: Social History Marital status: Spouse name: Years of education: Number of children: 2 Occupational History Occupation Employer Comment [employer] Social History Main Topics Smoking status: Never Smoker Smokeless tobacco: Never Used Comment: No one in household smokes Alcohol use: Yes Comment: Rarely Drug use: No Sexual activity: Yes Partners with: Male control/protection: Tubal Ligation FAMILY HISTORY - Hypertension Mother - Thyroid Mother - Heart Father - Hypertension Father - Heart Maternal Grandmother - Stroke Maternal Grandmother - Cancer Maternal Grandmother COLON - Cancer Paternal Grandmother STOMACH REVIEW OF SYSTEMS: General: The patient denies fatigue, denies weight loss, denies weight gain, denies feeling hot, and denies feelings of cold. Eyes: The patient denies glaucoma, denies eye injury/surgery, wears glasses or contacts. Ear/Nose/Throat: The patient NOTES allergies, NOTES hayfever, denies ear infections, and denies bloody noses. Cardiovascular: The patient denies chest pain, denies heart disease, denies high blood pressure,denies cardiac stent, denies prior heart attack, denies irregular heart beat, denies high cholesterol, denies poor circulation, denies heart failure, other cardiac issues, denies claudication, denies cold feet, denies peripheral arterial stent. Respiratory: The patient denies tuberculosis, denies pneumonia, denies frequent cough, denies pulmonary embolism, denies shortness of breath, and denies coughing up blood. Gastrointestinal: The patient denies difficulty swallowing, denies acid reflux, denies ulcers, denies vomiting, denies jaundice/hepatitis, denies gallbladder problems, denies black or tarry stools, denies hemorrhoids, denies bleeding from rectum, NOTES diverticulitis, NOTES constipation, denies diarrhea, denies loss of stool control, and denies hernias. Kidney/Bladder: The patient denies kidney stones, denies urine infections, and denies bloody urine. Skin: The patient denies a history of skin cancer, denies bleeding/changing moles, and denies a history of skin rash. Neurologic: The patient denies a history of epilepsy/convulsions, denies headaches, denies head/spinal injuries, and denies stroke/TIA. Psychiatric: The patient denies psychiatric medications, denies depression, and denies voices, denies substance abuse. Endocrine: The patient NOTES thyroid disorders, denies diabetes, and denies hormonal problems. Hematologic: The patient denies a history of bruising, denies bleeding, and denies anemia, denies blood clots. Infections: The patient denies a history of measles and mumps, denies rheumatic fever, and denies sexually transmitted diseases. Musculoskeletal: The patient NOTES back pain/injury, denies back problems, denies sciatica, denies knee/foot trouble, NOTES arthritis, or denies gout. PHYSICAL EXAMINATION: General: The patient is 57 year old female, well nourished, well hydrated in no acute distress. The patient is oriented to time, place, and person. VITALS: Blood pressure 106/70, pulse 76, temperature 37.1 ?C (98.8 ?F), weight 83.6 kg (184 lb 3.2 oz). Body mass index is 30.65 kg/m?. Head ? Normocephalic. EOM intact with sclera clear and no icterus noted. Wearing glasses. Mouth with mucus membranes moist. Neck - supple with no jugular venous distention noted. Trachea is midline. No carotid bruits noted. No masses noted. Lungs ? clear to auscultation. Normal breath sounds. No rales/rhonchi/wheezing noted. No labored breathing noted, such as retractions. Heart ? normal S1 and S2 auscultated. No rubs/clicks/murmurs noted. Regular rate. Abdomen ? soft and benign. Tender in left lower quadrant and suprapubic area, but no peritoneal signs, normal bowel sounds No masses noted. Extremities ? no calf tenderness noted. No pitting edema noted. . Skin ? normal skin integrity. Neurological ? gait normal, no focal deficits noted Psych ? calm and appropriate IMPRESSION: chronic left lower quadrant abdominal pain, chronic diveriticulitis, altered bowel habits - chronic constipation PLAN: I have discussed the above with the patient. I have discussed case with Dr. Ohara. He and I both agree that despite patient having colonoscopy in 2014, she should have a repeat prior to undergoing surgery. I have counseled patient as to risks of the procedure, including but not limited to: infection, bleeding, perforation of the GI tract, inability to complete the procedure, injury to any internal organs such as liver/spleen, she understands and wishes to proceed. This will be scheduled for her. Of note: the gynecologists have recommended that they be notified as they also wish to proceed with surgery on this patient as stated above. I have answered all questions to the patient?s satisfaction and the patient has no further questions. Greater than 50% of this patient encounter was dedicated to face to face discussion with the patient - total time spent with patient 15 minutes CNOV Observed: 12/01/2017 Status: COMPLETED Source: [place] 1:00 PM [facility] REPOSITORY Office Visit (GENSWS) ASIA HAWLEY ([id number]) 1960 F Date Time Provider Department 12/01/17 1:00 PM LOLA GRACE During your visit today, we recorded the following information about you: Lola Grace MD 12/03/2017 1:25 PM Signed Asia Hawley 1960 REFERRING PHYSICIAN: Priyanka Smith MD CHIEF COMPLAINT: Consult (abdominal pain) HPI: The patient is a 57 year old female with a complaint of chronic left lower quadrant abdominal pain Had colonoscopy 2015 she states that she was told it was negative. Underwent urgent laparoscopic sigmoid colectomy for diverticulitis with small contained perforation in 2009 Was told that she had 6 inches removed. States that she has had episodes of diverticulitis since surgery - 1-2 per year. States that she has left lower quadrant and suprapubic pain since surgery. Has chronic constipation. Has bowel movement about every other day. Was told to stay away from nuts/popcorn/seeds, etc. Takes mag citrate on regular basis Tried to make an appointment at [facility] and was told that there was nothing that can be done Also noted to have left ovarian cyst, it was recommended by her surgical resident to undergo left salpingo-oopherectomy EGD 08/31/16 - normal I ordered ACBE - reveals very redundant colon, with significant diverticular disease of sigmoid and left colon also possible narrowing in this area, also possibility of polyp in right colon I have discussed case with Dr. Ohara and we both agree that patient would benefit from repeat colectomy. Patient is amenable to this. PAST MEDICAL HISTORY - Abnormal Papanicolaou smear of vagina and vaginal HPV - Diverticulitis of sigmoid colon 12/07/2009 ACUTE - Diverticulosis of colon (without mention of hemorrhage) - GERD (gastroesophageal reflux disease) 10/01/2017 - Hives - Intramural leiomyoma of uterus - Rectal bleed 09/05/14 - Unspecified hypothyroidism PAST SURGICAL HISTORY - CERVIX UTERI CAUTER CRYOCAUTER 1999 - COLONOSCOP W/ OR W/O BRSH SPEC 04/10/09 - COLONOSCOP W/ OR W/O BRS SPEC 09/05/14 Repeat 2024 - COLPOSCOPY (VAGINOSCOPY) Multiple starting 1995 Colposcopy - LAPAROSCOPIC HEMICOLECTOMY 12/07/2009 Diverticulitis -perforated - LIGATE FALLOPIAN TUBE Tubal ligation - PAST SURGICAL HISTORY OF 10/2008 T9-L1 fusion, Dr. Lemon - PAST SURGICAL HISTORY OF 10/24/2009 Removed T9-L1, 2 rods and 8 screws, Dr Lemon - REMOVAL GALLBLADDER - REPAIR INTERCARP/CARP-METACARP JT Right 10/13/2017 Right thumb CMC arthroplasty with LRTI Current Outpatient Prescriptions: levothyroxine (SYNTHROID) 75 mcg tablet TAKE 1 TABLET ONCE DAILY ON AN EMPTY STOMACH FOR THYROID acetaminophen (TYLENOL) 325 mg cap Take by mouth as needed. promethazine (PHENERGAN) 12.5 mg tablet Take 1 tablet by mouth every 6 hours as needed. multivitamins(DAILY MULTIVITAMIN TAB) Take one(1) tablet daily. ASPIRIN 81 MG TAB Take one(1) tablet daily. ALLERGIES: Environmental [Other]; Hay Fever [Seasonal Allergies]; Zyrtec [Cetirizine Hcl] PERSONAL HISTORY: Social History Marital status: Spouse name: Years of education: Number of children: 2 Occupational History Occupation Employer Comment [employer] Social History Main Topics Smoking status: Never Smoker Smokeless tobacco: Never Used Comment: No one in household smokes Alcohol use: Yes Comment: Rarely Drug use: No Sexual activity: Yes Partners with: Male control/protection: Tubal Ligation FAMILY HISTORY - Hypertension Mother - Thyroid Mother - Heart Father - Hypertension Father - Heart Maternal Grandmother - Stroke Maternal Grandmother - Cancer Maternal Grandmother COLON - Cancer Paternal Grandmother STOMACH REVIEW OF SYSTEMS: General: The patient denies fatigue, denies weight loss, denies weight gain, denies feeling hot, and denies feelings of cold. Eyes: The patient denies glaucoma, denies eye injury/surgery, wears glasses or contacts. Ear/Nose/Throat: The patient NOTES allergies, NOTES hayfever, denies ear infections, and denies bloody noses. Cardiovascular: The patient denies chest pain, denies heart disease, denies high blood pressure,denies cardiac stent, denies prior heart attack, denies irregular heart beat, denies high cholesterol, denies poor circulation, denies heart failure, other cardiac issues, denies claudication, denies cold feet, denies peripheral arterial stent. Respiratory: The patient denies tuberculosis, denies pneumonia, denies frequent cough, denies pulmonary embolism, denies shortness of breath, and denies coughing up blood. Gastrointestinal: The patient denies difficulty swallowing, denies acid reflux, denies ulcers, denies vomiting, denies jaundice/hepatitis, denies gallbladder problems, denies black or tarry stools, denies hemorrhoids, denies bleeding from rectum, NOTES diverticulitis, NOTES constipation, denies diarrhea, denies loss of stool control, and denies hernias. Kidney/Bladder: The patient denies kidney stones, denies urine infections, and denies bloody urine. Skin: The patient denies a history of skin cancer, denies bleeding/changing moles, and denies a history of skin rash. Neurologic: The patient denies a history of epilepsy/convulsions, denies headaches, denies head/spinal injuries, and denies stroke/TIA. Psychiatric: The patient denies psychiatric medications, denies depression, and denies voices, denies substance abuse. Endocrine: The patient NOTES thyroid disorders, denies diabetes, and denies hormonal problems. Hematologic: The patient denies a history of bruising, denies bleeding, and denies anemia, denies blood clots. Infections: The patient denies a history of measles and mumps, denies rheumatic fever, and denies sexually transmitted diseases. Musculoskeletal: The patient NOTES back pain/injury, denies back problems, denies sciatica, denies knee/foot trouble, NOTES arthritis, or denies gout. PHYSICAL EXAMINATION: General: The patient is 57 year old female, well nourished, well hydrated in no acute distress. The patient is oriented to time, place, and person. VITALS: Blood pressure 106/70, pulse 76, temperature 37.1 ?C (98.8 ?F), weight 83.6 kg (184 lb 3.2 oz). Body mass index is 30.65 kg/m?. Head ? Normocephalic. EOM intact with sclera clear and no icterus noted. Wearing glasses. Mouth with mucus membranes moist. Neck - supple with no jugular venous distention noted. Trachea is midline. No carotid bruits noted. No masses noted. Lungs ? clear to auscultation. Normal breath sounds. No rales/rhonchi/wheezing noted. No labored breathing noted, such as retractions. Heart ? normal S1 and S2 auscultated. No rubs/clicks/murmurs noted. Regular rate. Abdomen ? soft and benign. Tender in left lower quadrant and suprapubic area, but no peritoneal signs, normal bowel sounds No masses noted. Extremities ? no calf tenderness noted. No pitting edema noted. . Skin ? normal skin integrity. Neurological ? gait normal, no focal deficits noted Psych ? calm and appropriate IMPRESSION: chronic left lower quadrant abdominal pain, chronic diveriticulitis, altered bowel habits - chronic constipation PLAN: I have discussed the above with the patient. I have discussed case with Dr. Ohara. He and I both agree that despite patient having colonoscopy in 2015, she should have a repeat prior to undergoing surgery. I have counseled patient as to risks of the procedure, including but not limited to: infection, bleeding, perforation of the GI tract, inability to complete the procedure, injury to any internal organs such as liver/spleen, she understands and wishes to proceed. This will be scheduled for her. Of note: the gynecologists have recommended that they be notified as they also wish to proceed with surgery on this patient as stated above. I have answered all questions to the patient?s satisfaction and the patient has no further questions. Greater than 50% of this patient encounter was dedicated to face to face discussion with the patient - total time spent with patient 15 minutes Lola Grace MD 12/03/2017 12:57 PM Signed How to Prepare for Your Colonoscopy Using Golytely, Nulytely, Trilyte or Colyte Preparations with Conscious Sedation IMPORTANT - Read These Instructions at Least 2 Weeks Before your Colonoscopy Bowman Instructions: ? Your bowel must be empty so that your doctor can clearly view your colon. Follow all of the instructions in this handout EXACTLY as they are written. If you do NOT follow the directions for when to start drinking the bowel preparation, your colonoscopy WILL be cancelled. ? Do NOT eat any solid food the ENTIRE day before your colonoscopy. ? Buy your bowel preparation at least 5 days before your colonoscopy. ? Do NOT mix the solution until the day before your colonoscopy. Designated Propellant Charge Zone Assembler on the Day of Your Exam A responsible family member or friend MUST come with you to your colonoscopy and REMAIN in the endoscopy area until you are discharged. You are NOT ALLOWED to drive, take a taxi or bus, or leave the Endoscopy Center ALONE. If you do not have a responsible equipment driver (family member or friend) with you to take you home, you exam cannot be done with sedation and will be cancelled. Medications Some of the medications you take may need to be stopped or adjusted before your colonoscopy. You MUST call the doctor who ordered any of the following medicines at least 2 weeks before your colonoscopy. ? Blood thinners - such as Coumadin (warfarin), Plavix (clopidogrel), Ticlid (ticlopidine hydrochloride), Agrylin (anagrelide), Xarelto (Rivaroxaban), Pradaxa (Dabigatran), Eliquis (Apixaban), and Effient (Prasugrel). ? Insulin or diabetes pills. Please call the doctor that monitors your glucose levels. Your insulin dosage may need to be adjusted due to the diet restrictions required with this bowel preparation. (Please bring your diabetes medicines with you on the day of your procedure.) If you take aspirin, take it and ALL other medications prescribed by your doctor. On the day of your colonoscopy, take your medications with a sip of water. Five (5) Days Before Your Colonoscopy ? Do NOT take medicines that stop diarrhea - such as Imodium, Kaopectate, or Pepto Bismol. ? Do NOT take fiber supplements - such as Metamucil, Citrucel, or Perdiem. ? Do NOT take products that contain iron - such as multi-vitamins (the label lists what is in the products). ? Do NOT take Vitamin E. Buy the prescription bowel preparation solution at your local pharmacy or drugstore pharmacy. Three (3) Days Before Your Colonoscopy ? Do NOT eat high-fiber foods - such as popcorn, beans, seeds (flax, sunflower, quinoa), multigrain bread, nuts, salad/vegetables, or fresh and dried fruit. One (1) Day Before Your Colonoscopy Only drink clear liquids the ENTIRE DAY before your colonoscopy. Do NOT eat any solid foods. Drink at least 8 ounces of clear liquids every hour after waking up. The clear liquids you can drink include: ? Water, apple, or white grape juice; broth; coffee or tea (without milk or creamer); clear carbonated beverages such as carlita yvon or lemon-wiyot soda; Gatorade or other sports drinks (not red); Sanju-Aid or other flavored drinks (not red). You may eat plain jello or other gelatins (not red) or popsicles (not red). Do NOT drink alcohol on the day before or the day of the procedure. When to Mix and Drink Your Bowel Prep Follow the instructions on the label. After mixing, place the solution in the refrigerator for a couple of hours before drinking. You may add the flavor pack that came with the bowel preparation. Do NOT add ice, sugar or any flavorings to the solution. Morning Appointment (Before 12 noon) Step 1: ? Start drinking the bowel preparation at 6 PM the evening before your colonoscopy. Drink an 8-oz glass of bowel preparation every 10 minutes for a total of 8 glasses. ? You may continue to drink clear liquids until bedtime. Step 2: The day of the colonoscopy (4 hours before your exam). ? Drink an 8-oz glass of bowel preparation every 10 minutes for a total of 8 glasses. ? You may continue to drink clear liquids up to 2 hours before your exam. If you take aspirin, take it and ALL other prescribed medicines with a sip of water on the day of your colonoscopy. Afternoon Appointment (After 12 noon) ? Start drinking the bowel preparation at 6 AM the day of your colonoscopy. Drink an 8-oz glass of bowel preparation every 10 minutes. You must finish drinking the solution by 9 AM. ? You may continue to drink clear liquids up to 2 hours before your exam. If you take aspirin, take it and ALL other prescribed medicines with a sip of water on the day of your colonoscopy. Referring Provider: SELF [200] Allergies As of Date: 12/01/2017 Noted Allergy Reaction environmental [Other] 12/28/2006 Comments: ? what=congestion HAY FEVER (SEASONAL ALLERGIES) 08/13/2009 ZYRTEC (CETIRIZINE HCL) 08/06/2014 9 - Itching Date Reviewed: 12/01/2017 Reviewed by: Phong Montaño LPN - Fully Assessed Reason for Visit: Established Patient [175] Primary Visit Diagnosis:Lower abdominal pain [R10.30] Other Visit Diagnoses:Diverticulosis of large intestine without perforation or abscess without bleeding [K57.30] Constipation, unspecified constipation type [K59.00] Order(s):SHORTY PT ED DIGESTIVE DISEASES [3188749] Order #: [id number]. #:[id number]: 1 peg 3350-Electrolytes (GOLYTELY) 236-22.74-6.74 - 5.86 gram suspensionTake 4,000 mL by mouth one time only for 1 dose. Refer to printed prep instructions from your doctor.Disp: 1 BottleRfl: 0 COLONOSCOPY - DIAGNOSTIC [[id number]] Order #: [id number] FUTURE Prescriptions as of 12/01/2017 Sig: LEVOTHYROXINE 75 MCG TABLET TAKE 1 TABLET ONCE DAILY ON A* ACETAMINOPHEN 325 MG CAPSULE Take by mouth as needed. PROMETHAZINE 12.5 MG TABLET Take 1 tablet by mouth every * * DAILY MULTIVITAMIN TABLET Take one(1) tablet daily. * ASPIRIN 81 MG TABLET Take one(1) tablet daily. PEG 3350-ELECTROLYTES 236 GRA* Take 4,000 mL by mouth one ti* Problem List As Of Date 12/01/2017 Noted Resolved Hypothyroidism [E03.9] Abnormal Papanicolaou Smear of Vagina and Vagin* 02/06/2010 Dyspareunia [HTU5943] INVALID FOR*02/06/2010 Fx Sacrum/Coccyx-Closed [S32.10XA, S32.2XXA] INVALID FOR*02/06/2010 Fx Dorsal Vertebra-Closed [S22.009A] INVALID FOR*02/06/2010 Diverticulosis [K57.90] INVALID FOR* Calcaneal spur [M77.30] INVALID FOR*10/01/2017 Hives [L50.9] 10/01/2017 Chronic urticaria [L50.8] INVALID FOR*10/01/2017 Open wound(s) (multiple) of unspecified site(s)*INVALID FOR*10/01/2017 Primary osteoarthritis of first carpometacarpal*INVALID FOR* More... Obesity, Class I, BMI 30-34.9 E66.9 [E66.9] INVALID FOR* GERD (gastroesophageal reflux disease) [K21.9] INVALID FOR* Other instructions from your clinician: How to Prepare for Your Colonoscopy Using Golytely, Nulytely, Trilyte or Colyte Preparations with Conscious Sedation IMPORTANT - Read These Instructions at Least 2 Weeks Before your Colonoscopy Bowman Instructions: ? Your bowel must be empty so that your doctor can clearly view your colon. Follow all of the instructions in this handout EXACTLY as they are written. If you do NOT follow the directions for when to start drinking the bowel preparation, your colonoscopy WILL be cancelled. ? Do NOT eat any solid food the ENTIRE day before your colonoscopy. ? Buy your bowel preparation at least 5 days before your colonoscopy. ? Do NOT mix the solution until the day before your colonoscopy. Designated Propellant Charge Zone Assembler on the Day of Your Exam A responsible family member or friend MUST come with you to your colonoscopy and REMAIN in the endoscopy area until you are discharged. You are NOT ALLOWED to drive, take a taxi or bus, or leave the Endoscopy Center ALONE. If you do not have a responsible equipment driver (family member or friend) with you to take you home, you exam cannot be done with sedation and will be cancelled. Medications Some of the medications you take may need to be stopped or adjusted before your colonoscopy. You MUST call the doctor who ordered any of the following medicines at least 2 weeks before your colonoscopy. ? Blood thinners - such as Coumadin (warfarin), Plavix (clopidogrel), Ticlid (ticlopidine hydrochloride), Agrylin (anagrelide), Xarelto (Rivaroxaban), Pradaxa (Dabigatran), Eliquis (Apixaban), and Effient (Prasugrel). ? Insulin or diabetes pills. Please call the doctor that monitors your glucose levels. Your insulin dosage may need to be adjusted due to the diet restrictions required with this bowel preparation. (Please bring your diabetes medicines with you on the day of your procedure.) If you take aspirin, take it and ALL other medications prescribed by your doctor. On the day of your colonoscopy, take your medications with a sip of water. Five (5) Days Before Your Colonoscopy ? Do NOT take medicines that stop diarrhea - such as Imodium, Kaopectate, or Pepto Bismol. ? Do NOT take fiber supplements - such as Metamucil, Citrucel, or Perdiem. ? Do NOT take products that contain iron - such as multi- vitamins (the label lists what is in the products). ? Do NOT take Vitamin E. Buy the prescription bowel preparation solution at your local pharmacy or drugstore pharmacy. Three (3) Days Before Your Colonoscopy ? Do NOT eat high-fiber foods - such as popcorn, beans, seeds (flax, sunflower, quinoa), multigrain bread, nuts, salad/vegetables, or fresh and dried fruit. One (1) Day Before Your Colonoscopy Only drink clear liquids the ENTIRE DAY before your colonoscopy. Do NOT eat any solid foods. Drink at least 8 ounces of clear liquids every hour after waking up. The clear liquids you can drink include: ? Water, apple, or white grape juice; broth; coffee or tea (without milk or creamer); clear carbonated beverages such as carlita yvon or lemon-wiyot soda; Gatorade or other sports drinks (not red); Sanju- Aid or other flavored drinks (not red). You may eat plain jello or other gelatins (not red) or popsicles (not red). Do NOT drink alcohol on the day before or the day of the procedure. When to Mix and Drink Your Bowel Prep Follow the instructions on the label. After mixing, place the solution in the refrigerator for a couple of hours before drinking. You may add the flavor pack that came with the bowel preparation. Do NOT add ice, sugar or any flavorings to the solution. Morning Appointment (Before 12 noon) Step 1: ? Start drinking the bowel preparation at 6 PM the evening before your colonoscopy. Drink an 8-oz glass of bowel preparation every 10 minutes for a total of 8 glasses. ? You may continue to drink clear liquids until bedtime. Step 2: The day of the colonoscopy (4 hours before your exam). ? Drink an 8-oz glass of bowel preparation every 10 minutes for a total of 8 glasses. ? You may continue to drink clear liquids up to 2 hours before your exam. If you take aspirin, take it and ALL other prescribed medicines with a sip of water on the day of your colonoscopy. Afternoon Appointment (After 12 noon) ? Start drinking the bowel preparation at 6 AM the day of your colonoscopy. Drink an 8-oz glass of bowel preparation every 10 minutes. You must finish drinking the solution by 9 AM. ? You may continue to drink clear liquids up to 2 hours before your exam. If you take aspirin, take it and ALL other prescribed medicines with a sip of water on the day of your colonoscopy. Prescriptions ordered this encounter Disp Refills Start End PEG 3350-ELECTROLYTES 236 GRAM-22.74* 1 Saul* 0 12/03/2017 12/03/2017 Route: ORAL Sig: Take 4,000 mL by mouth one time only for 1 dose. Refer to printed prep instructions from your doctor. Follow-up and Disposition History Recorded Encounter Status:Closed by MD LOLA GRACE on 12/03/17 PROGRESS Observed: 11/30/2017 Status: COMPLETED Source: [facility] 1:02 PM CLINIC OTHER CAMPUS REPOSITORY HNO ID: [id number] Author: Monika (Camryn Romero Service: (none) Author Type: Occupational Therapist Type: Progress Notes Filed: 11/30/2017 1:32 PM Note Text: Episode Visit Count: 1 Therapist That Will Oversee The Plan Of Care: Monika Romero Start of Care Date: 11/23/17 Onset Date: 10/13/17 Patient Identified by Name and Date of : Yes REHABILITATION AND SPORTS THERAPY OCCUPATIONAL THERAPY TREATMENT NOTE ASSESSMENT: Asia Hawley demonstrated difficulty with stiffness in wrist and improvements in AROM of thumb. The patient will continue to benefit from continued skilled occupational therapy for exercises, manual techniques and modalities PLAN FOR NEXT VISIT: wrist weight and putty exercises to tolerance SUBJECTIVE: Pt reporting no difficulty with splint reporting no pain stiffness at wrist reports she was able to help her daughter can peaches Pain Score: 0/10 Pain Location: Wrist - Right;Thumb - Right Description: Stiffness Frequency: Continuous Post Treatment Pain Score: 0/10 Pain Location: Wrist - Right;Thumb - Right Post Treatment Pain Description: Stiffness OBJECTIVE MEASURES WITH LEVEL OF FUNCTION: Hand Evaluation Elbow/Wrist AROM: Limitations as noted Limitations as noted: Right UE AROM R Wrist Extension: 45 Degrees R Wrist Flexion: 30 Degrees TREATMENT: Therapeutic Exercise: 1: wrist flex/ext, dev sup pro x 10 2: thumb flex ext, palamr and radial abduction and opposition 3: issued silicone for scar management instructed in wear scheduel and precautions 4: pt to wean out of firm support to use soft splint she has at home 5: soft sponge collar feller manipulate and cone picker 6: wrist circumduction cw and ccw x 10 each Skilled Intervention: Patient was educated in proper exercise technique and purpose for exercises. Skilled judgment was provided in selection of appropriate interventions. Correct performance of therapeutic exercises was facilitated with verbal cuing. Manual Therapy: 1: scar massage with lotion Skilled Intervention: Manual skills to improve joint mobility, ROM, and decrease pain. Utilized anatomy knowledge of the therapist, and assessment of patient's response to intervention. Modalities: Fluidotherapy Body Region Treated - Fluidotherapy: right hand Patient Position: seated Temperature: 110 Minute(s): 10 Activity 1: AROM See flowsheet for details regarding treatment. Skilled Intervention: Proper administration and selection of modality based on clinical presentation, deficits, and needs. Patient response monitored throughout treatment. Billing: Gonzalez: Therapeutic Exercise (24584): 1:1 time:20 minutes (1 unit: 8-22 mins) Manual Therapy (07126): 1:1 time: 10 minutes (1 unit: 8-22 mins) Fluidotherapy (80591) 1 unit(s) Total time: 40 minutes Monika Romero OT/ALETHA CNTHERAPY Observed: 11/30/2017 Status: COMPLETED Source: [facility] 12:45 PM CLINIC OTHER CAMPUS REPOSITORY [facility] ASIA HAW[facility] ([id number]) 1960 F Date Time Provider Department 11/30/17 12:45 PM MONIKA ROMERO ([place]) [facility] Date Time Provider Department Center 11/30/2017 12:45 PM [id number]-[facility] Reason for Visit: Occupational Therapy [504] Primary Visit Diagnosis:Primary osteoarthritis of first carpometacarpal joint of right hand [M18.11] Allergies As of Date: 11/30/2017 Noted Allergy Reaction environmental [Other] 12/28/2006 Comments: ? what=congestion HAY FEVER (SEASONAL ALLERGIES) 08/13/2009 ZYRTEC (CETIRIZINE HCL) 08/06/2014 9 - Itching Date Reviewed: 11/25/2017 Reviewed by: Erika Valadez - Fully Assessed Prescriptions as of 11/30/2017 Sig: LEVOTHYROXINE 75 MCG TABLET TAKE 1 TABLET ONCE DAILY ON A* ACETAMINOPHEN 325 MG CAPSULE Take by mouth as needed. PROMETHAZINE 12.5 MG TABLET Take 1 tablet by mouth every * * DAILY MULTIVITAMIN TABLET Take one(1) tablet daily. * ASPIRIN 81 MG TABLET Take one(1) tablet daily. Progress Notes: Monika Romero OT/Glory 11/30/2017 1:32 PM Signed Episode Visit Count: 1 Therapist That Will Oversee The Plan Of Care: Monika Romero Start of Care Date: 11/23/17 Onset Date: 10/13/17 Patient Identified by Name and Date of : Yes REHABILITATION AND SPORTS THERAPY OCCUPATIONAL THERAPY TREATMENT NOTE ASSESSMENT: Asia Hawley demonstrated difficulty with stiffness in wrist and improvements in AROM of thumb. The patient will continue to benefit from continued skilled occupational therapy for exercises, manual techniques and modalities PLAN FOR NEXT VISIT: wrist weight and putty exercises to tolerance SUBJECTIVE: Pt reporting no difficulty with splint reporting no pain stiffness at wrist reports she was able to help her daughter can peaches Pain Score: 0/10 Pain Location: Wrist - Right;Thumb - Right Description: Stiffness Frequency: Continuous Post Treatment Pain Score: 0/10 Pain Location: Wrist - Right;Thumb - Right Post Treatment Pain Description: Stiffness OBJECTIVE MEASURES WITH LEVEL OF FUNCTION: Hand Evaluation Elbow/Wrist AROM: Limitations as noted Limitations as noted: Right UE AROM R Wrist Extension: 45 Degrees R Wrist Flexion: 30 Degrees TREATMENT: Therapeutic Exercise: 1: wrist flex/ext, dev sup pro x 10 2: thumb flex ext, palamr and radial abduction and opposition 3: issued silicone for scar management instructed in wear scheduel and precautions 4: pt to wean out of firm support to use soft splint she has at home 5: soft sponge collar feller manipulate and cone picker 6: wrist circumduction cw and ccw x 10 each Skilled Intervention: Patient was educated in proper exercise technique and purpose for exercises. Skilled judgment was provided in selection of appropriate interventions. Correct performance of therapeutic exercises was facilitated with verbal cuing. Manual Therapy: 1: scar massage with lotion Skilled Intervention: Manual skills to improve joint mobility, ROM, and decrease pain. Utilized anatomy knowledge of the therapist, and assessment of patient's response to intervention. Modalities: Fluidotherapy Body Region Treated - Fluidotherapy: right hand Patient Position: seated Temperature: 110 Minute(s): 10 Activity 1: AROM See flowsheet for details regarding treatment. Skilled Intervention: Proper administration and selection of modality based on clinical presentation, deficits, and needs. Patient response monitored throughout treatment. Billing: Gonzalez: Therapeutic Exercise (80128): 1:1 time:20 minutes (1 unit: 8-22 mins) Manual Therapy (56377): 1:1 time: 10 minutes (1 unit: 8-22 mins) Fluidotherapy (77664) 1 unit(s) Total time: 40 minutes Monika Romero OT/DYLAN BARIUM ENEMA W/AIR Observed: 11/29/2017 Status: F Source: RAFAEL CONTRAST 7:32 AM [facility] REPOSITORY [facility] Imaging Services [address] [place] [id number] Barium Enema w/Air Contrast MR#: [id number] Acct: [id number] Name: ASIA HAWLEY Javier Rep #: [id number] : 1960 F 57 From: Joaquin Ellington MD PCP: Luis BHATT,Priyanka Status: REG CLI Study: Barium Enema w/Air Contrast Date of Exam: 11/29/17 Exam# [id number] Ordering Dr: Lola Grace MD STUDY: BARIUM ENEMA. REASON FOR EXAM: Female, 57 years old. History of prior colon resection. FLUOROSCOPY TIME (if supplied): (1:00) minutes/seconds TECHNIQUE: A plate shop helper film was obtained. Following this, barium was introduced retrograde through the rectum. The entire colon was opacified. COMPARISON: None. FINDINGS: On the plate shop helper film, the gas pattern is unremarkable. Phleboliths are seen in the pelvis. Contrast was introduced retrograde through the rectum. Entire colon was opacified. There is diffuse diverticulosis of the sigmoid colon and left hemicolon without radiographic cancer of diverticulitis. Residual fecal material is seen in the right hemicolon. A polypoid lesion cannot be ruled out. There is no evidence of antegrade or retrograde obstruction to the flow of contrast. RAD/Barium Enema w/Air Contrast IMPRESSION: Diverticulosis of the left hemicolon without evidence of obstruction or narrowing. Scattered residual fecal material in the right hemicolon limiting assessment for small polyps. Electronically Signed: Joaquin Ellington MD at 14:24 EDT Tel [phone], Service support , CC: Lola Grace MD; Priyanka Smith MD Manager Statistical Programming: Signed HPV W/GENOTYPE Collected: 11/25/2017 Status: F Source: [place] 4:04 PM [facility] REPOSITORY TYPE CODE TESTS RESULT OUT OF RANGE REFERENCE UNITS LAB HPVT16 Abnormal HPV HighRisk Positive for Alert Type 16 HPV DNA high risk type 16 by PCR LAB HPVT18 HPV HighRisk Negative for Type 18 HPV DNA high risk type 18 by PCR. LAB HPVHRO HPV HighRisk Negative for Other HPV DNA high risk types: 31,33,35,39,4 5,51,52,56,58 ,59,66,68 by PCR. Result Comment: This test was developed and its performance characteristics determined by [facility] [place] ([facility] It has not been cleared or approved by the FDA. [facility] is regulated under CLIA as qualified to perform high-complexity testing. This test is used for clinical purposes. It should not be regarded as inv estigational or for research. Performed By: #### HPVHRR #### [facility] [address] [place], [place] [address] CYTOLOGY Observed: 11/25/2017 Status: C Source: [place] 4:04 [facility] REPOSITORY ADDITIONAL PROCEDURES PRESENT Specimen originated from [facility] Specimen #: [id number] Submitting Physician: ERIKA VALADEZ MD SPECIMEN SUBMITTED A: CERVICAL, SCREENING, FLUID FINAL DIAGNOSIS A. CERVICAL, SCREENING, FLUID Satisfactory for interpretation. Negative for intraepithelial lesion or malignancy. Atrophic specimen. This specimen has been analyzed by the ThinPrep Imaging System, an automated imaging and review system, which assists the laboratory in evaluating cells on ThinPrep Pap tests. Following automated imaging, selected saavedra from every slide are reviewed by a rn intake. MARK Hale(ASCP) (Electronic Signature) ADDITIONAL PROCEDURE(S) HUMAN PAPILLOMA VIRUS Date Ordered: 11/29/2017 Date Reported: 11/30/2017 Procedure Results and Interpretation Positive for HPV DNA high risk type 16 by PCR(*) Negative for HPV DNA high risk type 18 by PCR. Negative for HPV DNA high risk types: 31,33,35,39,45,51,52,56,58,59,66,68 by PCR. This test was developed and its performance characteristics determined by [facility] [place] ([facility]). It has not been cleared or approved by the FDA. [facility] is regulated under CLIA as qualified to perform high-complexity testing. This test is used for clinical purposes. It should not be regarded as investigational or for research. CLINICAL DATA ROUTINE EXAM, HPV Testing: Yes, automatic HPV patients over 30 Date of Last Menstrual Period: 01/07/2011 Menstrual History: Post-Menopausal STAINS A: CERVICAL, SCREENING, FLUID THIN PREP PRESS SERVICE READER Gerri Donaldson M.D., Counter Stacker Date of Report: 12/02/2017 Date of Procedure: 11/25/2017 Date of Receipt: 11/29/2017 Submitted by: ERIKA VALADEZ MD Location: [facility] Diagnostic interpretation performed at [facility], [address] [place] [address]. The Pap Smear is a screening test for cervical cancer. False negative results occur with all screening tests, emphasizing the need for rescreening at recommended intervals, and clinical correlation. CEA Collected: 11/25/2017 Status: F Source: [place] 3:53 PM [facility] REPOSITORY TYPE CODE TESTS RESULT OUT OF RANGE REFERENCE UNITS LAB CEA 0.0-2.9 ng/mL CEA 1.3 Result Comment: Test analyzed by the Luisana DxI method. Performed By: #### CEA, CA199 #### [facility] [address] [place] [address] CA 19-9 Collected: 11/25/2017 Status: F Source: [place] 3:53 PM [facility] REPOSITORY TYPE CODE TESTS RESULT OUT OF RANGE REFERENCE UNITS LAB CA199 <36 U/mL CA 19-9 <2 Result Comment: Note that patients must possess the ability to express the Artemio blood group antigen or they will be unable to produce the CA 19-9 antigen even in the presence of proven malignancy. Test analyzed by the Luisana DxI method. Performed By: #### CEA, CA199 #### [place] [id number] [place] [id number] PROGRESS Observed: 11/25/2017 Status: COMPLETED Source: [place] 2:45 PM [facility] REPOSITORY HNO ID: [id number] Author: Erika Valadez Service: (none) Author Type: Physician Type: Progress Notes Filed: 11/25/2017 3:34 PM Note Text: Asia Hawley is a 57 year old female who presents for ovarian cyst. HPI: Patient presents in ED f/u for an ovarian cyst. She went to the ED for abdominal pain. Patient thinks it is related to bowel issues AND is may to have surgery with . Denies vaginal pain but has some vulvar irritation. PAST MEDICAL HISTORY Diagnosis Date - Abnormal Papanicolaou smear of vagina and vaginal HPV - Diverticulitis of sigmoid colon 12/07/2009 ACUTE - Diverticulosis of colon (without mention of hemorrhage) - GERD (gastroesophageal reflux disease) 10/01/2017 - Hives - Intramural leiomyoma of uterus - Rectal bleed 09/05/14 - Unspecified hypothyroidism PAST SURGICAL HISTORY Procedure Laterality Date - CERVIX UTERI CAUTER CRYOCAUTER 1999 - COLONOSCOP W/ OR W/O [facility] SPEC 04/10/09 - COLONOSCOP W/ OR W/O [facility] SPEC 09/05/14 Repeat 2024 - COLPOSCOPY (VAGINOSCOPY) Multiple starting 1995 Colposcopy - LAPAROSCOPIC HEMICOLECTOMY 12/07/2009 diverticulitis - LIGATE FALLOPIAN TUBE Tubal ligation - PAST SURGICAL HISTORY OF 10/2008 T9-L1 fusion, Dr. 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 promethazine (PHENERGAN) 12.5 mg tablet Take 1 tablet by mouth every 6 hours as needed. multivitamins(DAILY MULTIVITAMIN TAB) Take one(1) tablet daily. ASPIRIN 81 MG TAB Take one(1) tablet daily. No current facility-administered medications for this visit. Allergies As of Date: 11/25/2017 Allergen Noted Reaction ENVIRONMENTAL [OTHER] 12/28/2006 HAY FEVER [SEASONAL ALLERGIES] 08/13/2009 ZYRTEC [CETIRIZINE HCL] 08/06/2014 Itching Fully Assessed 11/23/2017 REVIEW OF SYSTEMS Bladder: No dysuria, gross hematuria, urinary frequency, urinary urgency, or incontinence. Breast: No breast lumps, nipple d/c, overlying skin changes, redness or skin retraction. Expanded ROS: GENERAL: No weight loss, malaise or fevers Allergies and current medication updated:Yes EXAM: LMP 01/07/2011 GENERAL: pleasant, female in no apparent distress CHEST: Normal inspiratory effort ABDOMEN: soft, non-tender and no masses PELVIC: external genitalia atrophic AND pale, no vulvar lesions, no cervical lesions, normal appearing perineal body and perianal region BIMANUAL: uterus normal size, shape and consistency, no adnexal masses and non-tender NEURO: alert and oriented x3,exam grossly non-focal EXTREMITIES: normal ASSESSMENT AND PLAN: 57yo female with ovarian cyst AND vulvar atrophy/itching Ovarian cyst - CA-125 normal at [facility]. Check CEA AND CA-19. Discussed R/B/A of surgery vs repeat US. Will determine plan of care after tumor markers AND based on if patient needs GI surgery. Pap with hpv - patient overdue Vulvar itching AND atrophy - f/u for biopsy Erika Valadez MD CNOV Observed: 11/25/2017 Status: COMPLETED Source: [place] 2:25 PM [facility] REPOSITORY Office Visit (WOOB) ASIA HAWLEY ([id number]) 1960 F Date Time Provider Department 11/25/17 2:25 PM ERIKA VALADEZ During your visit today, we recorded the following information about you: Blood pressure Weight 114/76 83.8 kg Erika Valadez MD 11/25/2017 3:34 PM Signed Asia Hawley is a 57 year old female who presents for ovarian cyst. HPI: Patient presents in ED f/u for an ovarian cyst. She went to the ED for abdominal pain. Patient thinks it is related to bowel issues AND is may to have surgery with . Denies vaginal pain but has some vulvar irritation. PAST MEDICAL HISTORY Diagnosis Date - Abnormal Papanicolaou smear of vagina and vaginal HPV - Diverticulitis of sigmoid colon 12/07/2009 ACUTE - Diverticulosis of colon (without mention of hemorrhage) - GERD (gastroesophageal reflux disease) 10/01/2017 - Hives - Intramural leiomyoma of uterus - Rectal bleed 09/05/14 - Unspecified hypothyroidism PAST SURGICAL HISTORY Procedure Laterality Date - CERVIX UTERI CAUTER CRYOCAUTER 1999 - COLONOSCOP W/ OR W/O [facility] SPEC 04/10/09 - COLONOSCOP W/ OR W/O [facility] SPEC 09/05/14 Repeat 2024 - COLPOSCOPY (VAGINOSCOPY) Multiple starting 1995 Colposcopy - LAPAROSCOPIC HEMICOLECTOMY 12/07/2009 diverticulitis - LIGATE FALLOPIAN TUBE Tubal ligation - PAST SURGICAL HISTORY OF 10/2008 T9-L1 fusion, Dr. 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 promethazine (PHENERGAN) 12.5 mg tablet Take 1 tablet by mouth every 6 hours as needed. multivitamins(DAILY MULTIVITAMIN TAB) Take one(1) tablet daily. ASPIRIN 81 MG TAB Take one(1) tablet daily. No current facility-administered medications for this visit. Allergies As of Date: 11/25/2017 Allergen Noted Reaction ENVIRONMENTAL [OTHER] 12/28/2006 HAY FEVER [SEASONAL ALLERGIES] 08/13/2009 ZYRTEC [CETIRIZINE HCL] 08/06/2014 Itching Fully Assessed 11/23/2017 REVIEW OF SYSTEMS Bladder: No dysuria, gross hematuria, urinary frequency, urinary urgency, or incontinence. Breast: No breast lumps, nipple d/c, overlying skin changes, redness or skin retraction. Expanded ROS: GENERAL: No weight loss, malaise or fevers Allergies and current medication updated:Yes EXAM: LMP 01/07/2011 GENERAL: pleasant, female in no apparent distress CHEST: Normal inspiratory effort ABDOMEN: soft, non-tender and no masses PELVIC: external genitalia atrophic AND pale, no vulvar lesions, no cervical lesions, normal appearing perineal body and perianal region BIMANUAL: uterus normal size, shape and consistency, no adnexal masses and non-tender NEURO: alert and oriented x3,exam grossly non-focal EXTREMITIES: normal ASSESSMENT AND PLAN: 57yo female with ovarian cyst AND vulvar atrophy/itching Ovarian cyst - CA-125 normal at [facility]. Check CEA AND CA-19. Discussed R/B/A of surgery vs repeat US. Will determine plan of care after tumor markers AND based on if patient needs GI surgery. Pap with hpv - patient overdue Vulvar itching AND atrophy - f/u for biopsy MD Clementina Kong Ma 11/25/2017 3:41 PM Signed Addended by: CLEMENTINA STROUD MA on: 11/25/2017 03:41 PM Modules accepted: Orders Erika Valadez MD 11/25/2017 4:04 PM Signed Addended by: ERIKA VALADEZ MD on: 11/25/2017 04:04 PM Modules accepted: Orders Referring Provider: [facility] [[id number]] Allergies As of Date: 11/25/2017 Noted Allergy Reaction environmental [Other] 12/28/2006 Comments: ? what=congestion HAY FEVER (SEASONAL ALLERGIES) 08/13/2009 ZYRTEC (CETIRIZINE HCL) 08/06/2014 9 - Itching Date Reviewed: 11/25/2017 Reviewed by: Erika Valadez - Fully Assessed Reason for Visit: ED Follow-up [821] Primary Visit Diagnosis:Cyst of left ovary [N83.202] Other Visit Diagnoses:Vulvar itching [L29.2] Encounter for screening for malignant neoplasm of cervix [Z12.4] Special screening examination for human papillomavirus (HPV) [Z11.51] Order(s):CA 19-9 BLD [BIQF812] Order #: [id number] FUTURE CEA BLD [SQCEA] Order #: [id number] FUTURE PAP FLUID CERVICAL SCREENING [8303563] Order #: [id number] Prescriptions as of 11/25/2017 Sig: LEVOTHYROXINE 75 MCG TABLET TAKE 1 TABLET ONCE DAILY ON A* ACETAMINOPHEN 325 MG CAPSULE Take by mouth as needed. PROMETHAZINE 12.5 MG TABLET Take 1 tablet by mouth every * * DAILY MULTIVITAMIN TABLET Take one(1) tablet daily. * ASPIRIN 81 MG TABLET Take one(1) tablet daily. Problem List As Of Date 11/25/2017 Noted Resolved Hypothyroidism [E03.9] Abnormal Papanicolaou Smear of Vagina and Vagin* 02/06/2010 Dyspareunia [IHC2862] INVALID FOR*02/06/2010 Fx Sacrum/Coccyx-Closed [S32.10XA, S32.2XXA] INVALID FOR*02/06/2010 Fx Dorsal Vertebra-Closed [S22.009A] INVALID FOR*02/06/2010 Diverticulosis [K57.90] INVALID FOR* Calcaneal spur [M77.30] INVALID FOR*10/01/2017 Hives [L50.9] 10/01/2017 Chronic urticaria [L50.8] INVALID FOR*10/01/2017 Open wound(s) (multiple) of unspecified site(s)*INVALID FOR*10/01/2017 Primary osteoarthritis of first carpometacarpal*INVALID FOR* More... Obesity, Class I, BMI 30-34.9 E66.9 [E66.9] INVALID FOR* GERD (gastroesophageal reflux disease) [K21.9] INVALID FOR* Follow-up and Disposition History Recorded Encounter Status:Closed by ERIKA VALADEZ MD on 11/25/17 PROGRESS Observed: 11/23/2017 Status: COMPLETED Source: [place] 1:32 PM [facility] OTHER [facility]AMPUS REPOSITORY HNO ID: [id number] Author: Eva MannCt) MARK Burch Service: (none) Author Type: Clinical Blocker Polishing Type: Progress Notes Filed: 11/23/2017 1:32 PM Note Text: NAME:Asia Hawley DATE: November 23, 2017 CCF#: [id number] Upper Extremity X-Ray(s): Hand, right COMPLETED TECH ID SIGN: RANDEE HOOK PROGRESS Observed: 11/23/2017 Status: COMPLETED Source: [place] 10:26 AM [facility]INIC OTHER CAMPUS REPOSITORY HNO ID: [id number] Author: Monika Gomez) Joseph Service: (none) Author Type: Occupational Therapist Type: Progress Notes Filed: 11/23/2017 4:05 PM Note Text: Episode Visit Count: Visit count could not be calculated. Make sure you are using a visit which is associated with an episode. Therapist That Will Oversee The Plan Of Care: Monika Romero Start of Care Date: 11/23/17 Onset Date: 10/13/17 Patient Identified by Name and Date of : Yes [facility] OCCUPATIONAL THERAPY EVALUATION PLAN OF CARE: Assessment: Asia Hawley presents with the diagnosis of cmc arthroplasty. She presents with impairments of AROM edema and strength She may benefit from skilled occupational therapy services to improve function. Prognosis: Good Good due to: current objective clinical presentation Goals for Episode of Care created on 11/23/17 through 02/23/18 Patient will report a good understanding of diagnosis and OT recommendations for progression of program Patient will demonstrate independence with ongoing home exercise program Patient will increase AROM of right thumb MP and IP flexion to 40 degrees each in order to be able to cone picker small items. Patient will independently demonstrate correct application of wrist and thumb orthosis and verbalize understanding of proper wear/care by end of session.MET Patient will report a good understanding of edema control techniques Patient will report a good understanding of the use of modalities to help manage discomfort and promote healing Patient will independently demonstrate scar massage/management in order to decrease scar adherence by discharge Patient will have functional strength for independence in all daily activities Planned Interventions, Frequency, and Duration: Current Frequency: 1x/week Duration: 6 weeks Total Number of Visits Planned: 6 Planned Treatment Interventions: Custom orthosis fabrication;Therapeutic exercise;Therapeutic activities;Manual therapy;ModalitiesFluidotherapy PLAN FOR NEXT VISIT: fluido and scar massage Patient demonstrates good understanding of plan of care and treatment. The above goals and plan of care were discussed and agreed upon by patient/family. SUBJECTIVE: Asia Hawley is a 57 year old female seen today for recent surgery Functional Limitations: gripping;pinching;twisting;pulling;pushing Prior Level of Function: Independent without limitations Patient Goals: resume previopus level of activity Intake Information: Prescription present Previous Treatment: None Falls Interview: No positive findings with falls interview Relevant History Medical Conditions: Thyroid Disease Right or Left Handed: Right Employment: Unemployed Home Environment Patient Lives With: Family Pain Score: 0/10 Pain Location: Wrist - Right;Thumb - Right Description: Sore;Stiffness Post Treatment Pain Score: 0/10 Pain Location: Wrist - Right;Thumb - Right Post Treatment Pain Description: Stiffness OBJECTIVE MEASURES WITH LEVEL OF FUNCTION: Hand Evaluation Skin / Wound: Scar;Skin Description Scar: Non-tender;Mild adherance Skin Description comments: dry and flaking Edema Location: right hand Edema Description: Moderate Edema Measurements: Wrist (DWC) (cm);Digits R Wrist (DWC) (cm): 17.5 L Wrist (DWC) (cm): 16.4 Edema - Digits: Thumb R Thumb P1 (cm): 7 cm R Thumb IP Joint (cm): 6.5 cm L Thumb P1 (cm): 6.1 cm L Thumb IP Joint (cm): 6.2 cm Elbow/Wrist AROM: Limitations as noted Limitations as noted: Right Limitations as noted: Right Thumb AROM: Limitations as noted Limitations as noted: Right Hand AROM R Thumb MP Flexion : 24 Degrees R Thumb IP Flexion : 24 Degrees R Thumb Radial Abduction: 55 Degrees R Thumb Palmar Abduction: 60 Degrees UE AROM R Forearm Supination: 90 Degrees R Forearm Pronation: 75 Degrees R Wrist Extension: 40 Degrees R Wrist Flexion: 40 Degrees R Wrist Radial Deviation: 20 Degrees R Wrist Ulnar Deviation: 20 Degrees Education: Education Learning Preferences: Demonstration;Explanation Barriers: None Learning/educational needs: Home exercise program;Brace Fit;Plan of Care Education Provided: Yes, see treatment interventions for education provided Education Provided To: Patient Education Mode/Type: Demonstration;Explanation/Discussion Response to Education/Teach Back: States/Identifies;Return Demonstration;Requires Review/Additional Education TREATMENT: Evaluation Evaluation Therapeutic Exercise: 1: wrist flex/ext, dev sup pro x 10 2: thumb flex ext, palamr and radial abduction and opposition 3: fabricated forearm based thumb spica splint 4: instyructed in wear scheduel and precautions provided contact information in event of fitting comfort issues Skilled Intervention: Patient was educated in proper exercise technique and purpose for exercises. Skilled judgment was provided in selection of appropriate interventions. Provided written instruction for home exercise program to facilitate proper performance and compliance. Correct performance of therapeutic exercises was facilitated with verbal and visual cuing. Self-Halfway Management: 1: instructed in edema reduction techniques 2: instructed in activity modification and joint precautions Skilled Intervention: Skilled judgment in the selection of proper modification for activity of daily living/home management based on clinical presentation, deficits, and needs. OT fabricated custom orthosis: forearm based thumb spica splint [id number] (b) WHFO custom (mid forearm/ long oppon/ wrist-thumb/ gutter) Custom orthosis to provide Pt practiced orthosis application, donning on/off while under OT's supervision. and to promote healing. Patient was instructed in its wearing schedule except to exercise and bathe. Skilled Intervention: Clinical knowledge and skills required for custom orthotic fabrication and wearing schedule Billing: Lisa: Evaluation - Low Complexity ( [id number]) Self Care / Home Management (23524): 1:1 time:15 minutes (1 unit: 8-22 mins) Therapeutic Exercise (66026): 1:1 time:15 minutes (1 unit: 8-22 mins) Fabricated forearm based thumb spica splint Total time: 45 minutes Monika Romero OT/[facility] Observed: 11/23/2017 Status: COMPLETED Source: [place] 10:15 AM [facility] OTHER CAMPUS REPOSITORY OT/PT/Speech Visit (OTM[facility]) ASIA HAWLEY ([id number]) 1960 F Date Time Provider Department 11/23/17 10:15 AM MONIKA ROMERO (OT) [facility] Date Time Provider Department Center 11/23/2017 10:15 AM [id number] ROMERO *[facility] Reason for Visit: OT EVAL [748] Primary Visit Diagnosis:H/O hand surgery [Z98.890] Other Visit Diagnosis:Primary osteoarthritis of first carpometacarpal joint of right hand [M18.11] Allergies As of Date: 11/23/2017 Noted Allergy Reaction environmental [Other] 12/28/2006 Comments: ? what=congestion HAY FEVER (SEASONAL ALLERGIES) 08/13/2009 ZYRTEC (CETIRIZINE HCL) 08/06/2014 9 - Itching Date Reviewed: 11/23/2017 Reviewed by: Raul Clifton - Fully Assessed Prescriptions as of 11/23/2017 Sig: LEVOTHYROXINE 75 MCG TABLET TAKE 1 TABLET ONCE DAILY ON A* ACETAMINOPHEN 325 MG CAPSULE Take by mouth as needed. PROMETHAZINE 12.5 MG TABLET Take 1 tablet by mouth every * * DAILY MULTIVITAMIN TABLET Take one(1) tablet daily. * ASPIRIN 81 MG TABLET Take one(1) tablet daily. Progress Notes: ESME Arzate 11/23/2017 4:05 PM Signed Episode Visit Count: Visit count could not be calculated. Make sure you are using a visit which is associated with an episode. Therapist That Will Oversee The Plan Of Care: Monika Romero Start of Care Date: 11/23/17 Onset Date: 10/13/17 Patient Identified by Name and Date of : Yes [facility] OCCUPATIONAL THERAPY EVALUATION PLAN OF CARE: Assessment: Asia Hawley presents with the diagnosis of cmc arthroplasty. She presents with impairments of AROM edema and strength She may benefit from skilled occupational therapy services to improve function. Prognosis: Good Good due to: current objective clinical presentation Goals for Episode of Care created on 11/23/17 through 02/23/18 Patient will report a good understanding of diagnosis and OT recommendations for progression of program Patient will demonstrate independence with ongoing home exercise program Patient will increase AROM of right thumb MP and IP flexion to 40 degrees each in order to be able to cone picker small items. Patient will independently demonstrate correct application of wrist and thumb orthosis and verbalize understanding of proper wear/care by end of session.MET Patient will report a good understanding of edema control techniques Patient will report a good understanding of the use of modalities to help manage discomfort and promote healing Patient will independently demonstrate scar massage/management in order to decrease scar adherence by discharge Patient will have functional strength for independence in all daily activities Planned Interventions, Frequency, and Duration: Current Frequency: 1x/week Duration: 6 weeks Total Number of Visits Planned: 6 Planned Treatment Interventions: Custom orthosis fabrication;Therapeutic exercise;Therapeutic activities;Manual therapy;ModalitiesFluidotherapy PLAN FOR NEXT VISIT: fluido and scar massage Patient demonstrates good understanding of plan of care and treatment. The above goals and plan of care were discussed and agreed upon by patient/family. SUBJECTIVE: Asia Hawley is a 57 year old female seen today for recent surgery Functional Limitations: gripping;pinching;twisting;pulling;pushing Prior Level of Function: Independent without limitations Patient Goals: resume previopus level of activity Intake Information: Prescription present Previous Treatment: None Falls Interview: No positive findings with falls interview Relevant History Medical Conditions: Thyroid Disease Right or Left Handed: Right Employment: Unemployed Home Environment Patient Lives With: Family Pain Score: 0/10 Pain Location: Wrist - Right;Thumb - Right Description: Sore;Stiffness Post Treatment Pain Score: 0/10 Pain Location: Wrist - Right;Thumb - Right Post Treatment Pain Description: Stiffness OBJECTIVE MEASURES WITH LEVEL OF FUNCTION: Hand Evaluation Skin / Wound: Scar;Skin Description Scar: Non-tender;Mild adherance Skin Description comments: dry and flaking Edema Location: right hand Edema Description: Moderate Edema Measurements: Wrist (DWC) (cm);Digits R Wrist (DWC) (cm): 17.5 L Wrist (DWC) (cm): 16.4 Edema - Digits: Thumb R Thumb P1 (cm): 7 cm R Thumb IP Joint (cm): 6.5 cm L Thumb P1 (cm): 6.1 cm L Thumb IP Joint (cm): 6.2 cm Elbow/Wrist AROM: Limitations as noted Limitations as noted: Right Limitations as noted: Right Thumb AROM: Limitations as noted Limitations as noted: Right Hand AROM R Thumb MP Flexion : 24 Degrees R Thumb IP Flexion : 24 Degrees R Thumb Radial Abduction: 55 Degrees R Thumb Palmar Abduction: 60 Degrees UE AROM R Forearm Supination: 90 Degrees R Forearm Pronation: 75 Degrees R Wrist Extension: 40 Degrees R Wrist Flexion: 40 Degrees R Wrist Radial Deviation: 20 Degrees R Wrist Ulnar Deviation: 20 Degrees Education: Education Learning Preferences: Demonstration;Explanation Barriers: None Learning/educational needs: Home exercise program;Brace Fit;Plan of Care Education Provided: Yes, see treatment interventions for education provided Education Provided To: Patient Education Mode/Type: Demonstration;Explanation/Discussion Response to Education/Teach Back: States/Identifies;Return Demonstration;Requires Review/Additional Education TREATMENT: Evaluation Evaluation Therapeutic Exercise: 1: wrist flex/ext, dev sup pro x 10 2: thumb flex ext, palamr and radial abduction and opposition 3: fabricated forearm based thumb spica splint 4: instyructed in wear scheduel and precautions provided contact information in event of fitting comfort issues Skilled Intervention: Patient was educated in proper exercise technique and purpose for exercises. Skilled judgment was provided in selection of appropriate interventions. Provided written instruction for home exercise program to facilitate proper performance and compliance. Correct performance of therapeutic exercises was facilitated with verbal and visual cuing. Self-Halfway Management: 1: instructed in edema reduction techniques 2: instructed in activity modification and joint precautions Skilled Intervention: Skilled judgment in the selection of proper modification for activity of daily living/home management based on clinical presentation, deficits, and needs. OT fabricated custom orthosis: forearm based thumb spica splint [id number] (b) WHFO custom (mid forearm/ long oppon/ wrist-thumb/ gutter) Custom orthosis to provide Pt practiced orthosis application, donning on/off while under OT's supervision. and to promote healing. Patient was instructed in its wearing schedule except to exercise and bathe. Skilled Intervention: Clinical knowledge and skills required for custom orthotic fabrication and wearing schedule Billing: Lisa: Evaluation - Low Complexity ( [id number]) Self Care / Home Management (81761): 1:1 time:15 minutes (1 unit: 8-22 mins) Therapeutic Exercise (19178): 1:1 time:15 minutes (1 unit: 8-22 mins) Fabricated forearm based thumb spica splint Total time: 45 minutes Monika Romero OT/DYLAN Annotated image of OT HAND POST-OP EX'S [id number] last updated by Monika Romero on 11/23/2017 10:53 AM Annotated image of OT HAND TENDON GLIDING THUMB EX'S last updated by Monika Romero on 11/23/2017 10:53 AM PROGRESS Observed: 11/23/2017 Status: COMPLETED Source: [place] 9:52 AM [facility] REPOSITORY HNO ID: [id number] Author: Raul Clifton Service: (none) Author Type: Physician Type: Progress Notes Filed: 12/15/2017 4:45 PM Note Text: Raul Clifton MD Department of Orthopaedics Orthopaedics [address] [place] [address] Dept: [phone] November 23, 2017 CHIEF COMPLAINT: Surgical Followup (5 weeks 5 days post op right CMC arthroplasty with LRTI). ASSESSMENT: M18.11 Primary osteoarthritis of first carpometacarpal joint of right hand (primary encounter diagnosis) SUMMARY/PLAN: Patient is just shy of 6 weeks status post CMC arthroplasty. She had her cast off and she's doing very well. Really has no pain in the stiffness is noted and her thumb, IP joint primarily. We'll get her into occupational therapy, splinting for 2-1/2 or 3 weeks. We'll see her back at that time for reevaluation. Exam: Surgical sites look excellent. She does have a bit of stiffness at the IP joint with a little bit of joint crepitance from disuse. Neurovascular exam intact. Imaging: IMPRESSION: Postsurgical changes without apparent complication. Manager Statistical Programming: JUAN ? Transcribe Date/Time: Nov 23 2017 ?9:53A Dictated by : GAIB ACOSTA MD This examination was interpreted and the report reviewed and electronically signed by: GABI ACOSTA MD on Nov 23 2017 ?9:59AM ?EST Results-Findings * * *Final Report* * * DATE OF EXAM: Nov 23 2017 ?9:07AM ? O ? 5346 ?- ?XR HAND 3V PA/LAT/OBL RT ?/ PROCEDURE REASON: M18.11-Unilateral primary osteoarthritis of first carpometacarpal joint, right h ?? ? * * * * Physician Interpretation * * * * ?EXAMINATION: ?XR HAND 3V PA/LAT/OBL RT CLINICAL HISTORY: ? POST OP CMC Unilateral primary osteoarthritis of first carpometacarpal joint, right hand Technique: ? XR HAND 3V PA/LAT/OBL RT -- RIGHT hand with 3 views on 3 images Comparison: 06/07/2017 RESULT: Postsurgical changes first CMC arthroplasty with removal of the trapezium. Carpal rows is otherwise maintained. Mild degenerative changes at the base of the first metacarpal. No fracture or dislocation. Postoperative soft tissue swelling about the wrist. Supporting Information Below: Medications: Current Outpatient Prescriptions: levothyroxine (SYNTHROID) 75 mcg tablet TAKE 1 TABLET ONCE DAILY ON AN EMPTY STOMACH FOR THYROID acetaminophen (TYLENOL) 325 mg cap Take by mouth as needed. promethazine (PHENERGAN) 12.5 mg tablet Take 1 tablet by mouth every 6 hours as needed. multivitamins(DAILY MULTIVITAMIN TAB) Take one(1) tablet daily. ASPIRIN 81 MG TAB Take one(1) tablet daily. No current facility-administered medications for this visit. Allergies: Environmental [Other]; Hay Fever [Seasonal Allergies]; Zyrtec [Cetirizine Hcl] This note was partially generated using [employer] voice recognition system, and there may be some incorrect words, spellings, and punctuation that were not noted in checking the note before saving. Raul Clifton MD CNOV Observed: 11/23/2017 Status: COMPLETED Source: [place] 9:45 AM [facility] REPOSITORY Office Visit (ORMDNA) ASIA HAWLEY ([id number]) 1960 F Date Time Provider Department 11/23/17 9:45 AM RAUL CLIFTON During your visit today, we recorded the following information about you: Lola Roberts Alison 12/15/2017 4:45 PM Signed Patient presents with: Surgical Followup: 5 weeks 5 days post op right CMC arthroplasty with LRTI AMB ROOMING INTAKE FLOWSHEET DATA Risk Screening Do you have concerns about personal safety or safety in the home?: No Cast removed by [employer] [facility] prior to x-ray. Patient denies any pain. Patient is scheduled for OT after her appointment today. Raul Clifton MD 12/15/2017 4:45 PM Signed Raul Clifton MD Department of Orthopaedics Orthopaedics [address] [place] [address] Dept: [phone] November 23, 2017 CHIEF COMPLAINT: Surgical Followup (5 weeks 5 days post op right CMC arthroplasty with LRTI). ASSESSMENT: M18.11 Primary osteoarthritis of first carpometacarpal joint of right hand (primary encounter diagnosis) SUMMARY/PLAN: Patient is just shy of 6 weeks status post CMC arthroplasty. She had her cast off and she's doing very well. Really has no pain in the stiffness is noted and her thumb, IP joint primarily. We'll get her into occupational therapy, splinting for 2-1/2 or 3 weeks. We'll see her back at that time for reevaluation. Exam: Surgical sites look excellent. She does have a bit of stiffness at the IP joint with a little bit of joint crepitance from disuse. Neurovascular exam intact. Imaging: IMPRESSION: Postsurgical changes without apparent complication. Manager Statistical Programming: PSCB ? Transcribe Date/Time: Nov 23 2017 ?9:53A Dictated by : GABI ACOSTA MD This examination was interpreted and the report reviewed and electronically signed by: GABI ACOSTA MD on Nov 23 2017 ?9:59AM ?EST Results-Findings * * *Final Report* * * DATE OF EXAM: Nov 23 2017 ?9:07AM ? MDO ? 5346 ?- ?XR HAND 3V PA/LAT/OBL RT ?/ PROCEDURE REASON: M18.11-Unilateral primary osteoarthritis of first carpometacarpal joint, right h ?? ? * * * * Physician Interpretation * * * * ?EXAMINATION: ?XR HAND 3V PA/LAT/OBL RT CLINICAL HISTORY: ? POST OP CMC Unilateral primary osteoarthritis of first carpometacarpal joint, right hand Technique: ? XR HAND 3V PA/LAT/OBL RT -- RIGHT hand with 3 views on 3 images Comparison: 06/07/2017 RESULT: Postsurgical changes first CMC arthroplasty with removal of the trapezium. Carpal rows is otherwise maintained. Mild degenerative changes at the base of the first metacarpal. No fracture or dislocation. Postoperative soft tissue swelling about the wrist. Supporting Information Below: Medications: Current Outpatient Prescriptions: levothyroxine (SYNTHROID) 75 mcg tablet TAKE 1 TABLET ONCE DAILY ON AN EMPTY STOMACH FOR THYROID acetaminophen (TYLENOL) 325 mg cap Take by mouth as needed. promethazine (PHENERGAN) 12.5 mg tablet Take 1 tablet by mouth every 6 hours as needed. multivitamins(DAILY MULTIVITAMIN TAB) Take one(1) tablet daily. ASPIRIN 81 MG TAB Take one(1) tablet daily. No current facility-administered medications for this visit. Allergies: Environmental [Other]; Hay Fever [Seasonal Allergies]; Zyrtec [Cetirizine Hcl] This note was partially generated using [employer] voice recognition system, and there may be some incorrect words, spellings, and punctuation that were not noted in checking the note before saving. Raul Clifton MD Referring Provider: SELF [[id number]] Allergies As of Date: 11/23/2017 Noted Allergy Reaction environmental [Other] 12/28/2006 Comments: ? what=congestion HAY FEVER (SEASONAL ALLERGIES) 08/13/2009 ZYRTEC (CETIRIZINE HCL) 08/06/2014 9 - Itching Date Reviewed: 11/23/2017 Reviewed by: Raul Clifton - Fully Assessed Reason for Visit: Surgical Followup [104] Cmt: 5 weeks 5 days post op right CMC arthroplasty with LRTI Primary Visit Diagnosis:Primary osteoarthritis of first carpometacarpal joint of right hand [M18.11] Prescriptions as of 11/23/2017 Sig: LEVOTHYROXINE 75 MCG TABLET TAKE 1 TABLET ONCE DAILY ON A* ACETAMINOPHEN 325 MG CAPSULE Take by mouth as needed. PROMETHAZINE 12.5 MG TABLET Take 1 tablet by mouth every * * DAILY MULTIVITAMIN TABLET Take one(1) tablet daily. * ASPIRIN 81 MG TABLET Take one(1) tablet daily. Problem List As Of Date 11/23/2017 Noted Resolved Hypothyroidism [E03.9] Abnormal Papanicolaou Smear of Vagina and Vagin* 02/06/2010 Dyspareunia [[id number]] INVALID FOR*02/06/2010 Fx Sacrum/Coccyx-Closed [S32.10XA, S32.2XXA] INVALID FOR*02/06/2010 Fx Dorsal Vertebra-Closed [S22.009A] INVALID FOR*02/06/2010 Diverticulosis [K57.90] INVALID FOR* Calcaneal spur [M77.30] INVALID FOR*10/01/2017 Hives [L50.9] 10/01/2017 Chronic urticaria [L50.8] INVALID FOR*10/01/2017 Open wound(s) (multiple) of unspecified site(s)*INVALID FOR*10/01/2017 Primary osteoarthritis of first carpometacarpal*INVALID FOR* More... Obesity, Class I, BMI 30-34.9 E66.9 [E66.9] INVALID FOR* GERD (gastroesophageal reflux disease) [K21.9] INVALID FOR* Encounter Status:Closed by RAUL CLIFTON MD on 12/15/17 PROGRESS Observed: 11/23/2017 Status: COMPLETED Source: [place] 9:24 AM [facility] REPOSITORY HNO ID: [id number] Author: Lola Roberts Ma Service: (none) Author Type: (none) Type: Progress Notes Filed: 12/15/2017 4:45 PM Note Text: Patient presents with: Surgical Followup: 5 weeks 5 days post op right CMC arthroplasty with LRTI AMB ROOMING INTAKE FLOWSHEET DATA Risk Screening Do you have concerns about personal safety or safety in the home?: No Cast removed by [employer] prior to x-ray. Patient denies any pain. Patient is scheduled for OT after her appointment today. XR HAND 3V PA/LAT/OBL Observed: 11/23/2017 Status: F Source: [facility] 9:07 AM [facility] OTHER CAMPUS REPOSITORY * * *Final Report* * * DATE OF EXAM: Nov 23 2017 9:07AM [facility] 5346 - XR HAND 3V PA/LAT/OBL RT / PROCEDURE REASON: M18.11-Unilateral primary osteoarthritis of first carpometacarpal joint, right h * * * * Physician Interpretation * * * * EXAMINATION: XR HAND 3V PA/LAT/OBL RT CLINICAL HISTORY: POST OP CMC Unilateral primary osteoarthritis of first carpometacarpal joint, right hand Technique: XR HAND 3V PA/LAT/OBL RT -- RIGHT hand with 3 views on 3 images Comparison: 06/07/2017 RESULT: Postsurgical changes first CMC arthroplasty with removal of the trapezium. Carpal rows is otherwise maintained. Mild degenerative changes at the base of the first metacarpal. No fracture or dislocation. Postoperative soft tissue swelling about the wrist. IMPRESSION: Postsurgical changes without apparent complication. Manager Statistical Programming: PSCB Transcribe Date/Time: Nov 23 2017 9:53A Dictated by : GABI ACOSTA MD This examination was interpreted and the report reviewed and electronically signed by: GABI ACOSTA MD on Nov 23 2017 9:59AM EST [id number] PROGRESS Observed: 11/19/2017 Status: COMPLETED Source: [place] 9:06 AM [facility] REPOSITORY O ID: [id number] Author: Lola Grace Service: (none) Author Type: Physician Type: Progress Notes Filed: 11/20/2017 7:56 PM Note Text: Asia Hawley 1960 REFERRING PHYSICIAN: Priyanka Smith MD CHIEF COMPLAINT: Consult (abdominal pain) HPI: The patient is a 57 year old female with a complaint of chronic left lower quadrant abdominal pain Had colonoscopy 2015 she states that she was told it was negative. Underwent urgent laparoscopic sigmoid colectomy for diverticulitis with small contained perforation. Was told that she had 6 inches removed. States that she has had episodes of diverticulitis since surgery - 1-2 per year. States that she has left lower quadrant and suprapubic pain since surgery. Has occasional constipation. Has bowel movement about every other day. Was told to stay away from nuts/popcorn/seeds, etc. Takes mag citrate on regular basis Tried to make an appointment at [facility] and was told that there was nothing that can be done Also noted to have left ovarian cyst. EGD 08/31/16 - normal PAST MEDICAL HISTORY Diagnosis Date - Abnormal Papanicolaou smear of vagina and vaginal HPV - Diverticulitis of sigmoid colon 12/07/2009 ACUTE - Diverticulosis of colon (without mention of hemorrhage) - GERD (gastroesophageal reflux disease) 10/01/2017 - Hives - Intramural leiomyoma of uterus - Rectal bleed 09/05/14 - Unspecified hypothyroidism PAST SURGICAL HISTORY Procedure Laterality Date - CERVIX UTERI CAUTER CRYOCAUTER 1999 - COLONOSCOP W/ OR W/O [facility] SPEC 04/10/09 - COLONOSCOP W/ OR W/O [facility] SPEC 09/05/14 Repeat 2024 - COLPOSCOPY (VAGINOSCOPY) Multiple starting 1995 Colposcopy - LAPAROSCOPIC HEMICOLECTOMY 12/07/2009 diverticulitis - LIGATE FALLOPIAN TUBE Tubal ligation - PAST SURGICAL HISTORY OF 10/2008 T9-L1 fusion, Dr. Lemon - PAST SURGICAL HISTORY OF 10/24/2009 Removed T9-L1, 2 rods and 8 screws, Dr Lemon - REMOVAL GALLBLADDER Cholecystectomy - REPAIR INTERCARP/CARP-METACARP JT Right 10/13/2017 Right thumb CMC arthroplasty with LRTI Current Outpatient Prescriptions: levothyroxine (SYNTHROID) 75 mcg tablet TAKE 1 TABLET ONCE DAILY ON AN EMPTY STOMACH FOR THYROID acetaminophen (TYLENOL) 325 mg cap Take by mouth as needed. promethazine (PHENERGAN) 12.5 mg tablet Take 1 tablet by mouth every 6 hours as needed. multivitamins(DAILY MULTIVITAMIN TAB) Take one(1) tablet daily. ASPIRIN 81 MG TAB Take one(1) tablet daily. ALLERGIES: Environmental [Other]; Hay Fever [Seasonal Allergies]; Zyrtec [Cetirizine Hcl] PERSONAL HISTORY: Social History Marital status: Spouse name: Years of education: Number of children: 2 Occupational History Occupation Employer Comment [employer] Social History Main Topics Smoking status: Never Smoker Smokeless tobacco: Never Used Comment: No one in household smokes Alcohol use: Yes Comment: Rarely Drug use: No Sexual activity: Yes Partners with: Male control/protection: Tubal Ligation FAMILY HISTORY Problem Relation Age of Onset - Hypertension Mother - Thyroid Mother - Heart Father - Hypertension Father - Heart Maternal Grandmother - Stroke Maternal Grandmother - Cancer Maternal Grandmother COLON - Cancer Paternal Grandmother STOMACH REVIEW OF SYSTEMS: General: The patient denies fatigue, denies weight loss, denies weight gain, denies feeling hot, and denies feelings of cold. Eyes: The patient denies glaucoma, denies eye injury/surgery, wears glasses or contacts. Ear/Nose/Throat: The patient NOTES allergies, NOTES hayfever, denies ear infections, and denies bloody noses. Cardiovascular: The patient denies chest pain, denies heart disease, denies high blood pressure,denies cardiac stent, denies prior heart attack, denies irregular heart beat, denies high cholesterol, denies poor circulation, denies heart failure, other cardiac issues, denies claudication, denies cold feet, denies peripheral arterial stent. Respiratory: The patient denies tuberculosis, denies pneumonia, denies frequent cough, denies pulmonary embolism, denies shortness of breath, and denies coughing up blood. Gastrointestinal: The patient denies difficulty swallowing, denies acid reflux, denies ulcers, denies vomiting, denies jaundice/hepatitis, denies gallbladder problems, denies black or tarry stools, denies hemorrhoids, denies bleeding from rectum, NOTES diverticulitis, NOTES constipation, denies diarrhea, denies loss of stool control, and denies hernias. Kidney/Bladder: The patient denies kidney stones, denies urine infections, and denies bloody urine. Skin: The patient denies a history of skin cancer, denies bleeding/changing moles, and denies a history of skin rash. Neurologic: The patient denies a history of epilepsy/convulsions, denies headaches, denies head/spinal injuries, and denies stroke/TIA. Psychiatric: The patient denies psychiatric medications, denies depression, and denies voices, denies substance abuse. Endocrine: The patient NOTES thyroid disorders, denies diabetes, and denies hormonal problems. Hematologic: The patient denies a history of bruising, denies bleeding, and denies anemia, denies blood clots. Infections: The patient denies a history of measles and mumps, denies rheumatic fever, and denies sexually transmitted diseases. Musculoskeletal: The patient NOTES back pain/injury, denies back problems, denies sciatica, denies knee/foot trouble, NOTES arthritis, or denies gout. PHYSICAL EXAMINATION: General: The patient is 57 year old female, well nourished, well hydrated in no acute distress. The patient is oriented to time, place, and person. VITALS: Blood pressure 106/70, pulse 76, temperature 37.1 ?C (98.8 ?F), weight 83.6 kg (184 lb 3.2 oz). Body mass index is 30.65 kg/m?. Head ? Normocephalic. EOM intact with sclera clear and no icterus noted. Wearing glasses. Mouth with mucus membranes moist. Neck - supple with no jugular venous distention noted. Trachea is midline. No carotid bruits noted. No masses noted. Lungs ? clear to auscultation. Normal breath sounds. No rales/rhonchi/wheezing noted. No labored breathing noted, such as retractions. Heart ? normal S1 and S2 auscultated. No rubs/clicks/murmurs noted. Regular rate. Abdomen ? soft and benign. Tender in left lower quadrant and suprapubic area, but no peritoneal signs, normal bowel sounds No masses noted. Extremities ? no calf tenderness noted. No pitting edema noted. . Skin ? normal skin integrity. Neurological ? gait normal, no focal deficits noted Psych ? calm and appropriate Assessment IMPRESSION: chronic left lower quadrant abdominal pain, chronic diveriticulitis, altered bowel habits PLAN: I have discussed the above with the patient. She states that she had 6 inches of her colon removed. She may require further resection, given her continued disease process. I would recommend further evaluation of the extent of her disease with ACBE. She had a colonoscopy relatively recently in 2014 which revealed diverticulosis and no other major pathology. She may be a candidate for additional resection of her colon, and patient seems amenable to this. I will have patient follow up with me after ACBE to review the results. The patient wishes to proceed. I have answered all questions to the patient?s satisfaction and the patient has no further questions. Greater than 50% of this patient encounter was dedicated to face to face discussion with the patient - total time spent with patient 25 minutes Diagnoses: (R10.30) Lower abdominal pain (primary encounter diagnosis) (K57.30) Diverticulosis of large intestine without perforation or abscess without bleeding Return to Clinic: The patient is instructed to follow-up with me after ACBE. Lola Grace MD CNOV Observed: 11/18/2017 Status: COMPLETED Source: [place] 3:20 PM [facility] REPOSITORY Office Visit (GENSWS) ASIA HAWLEY ([id number]) 1960 F Date Time Provider Department 11/18/17 3:20 PM LOLA GRACE During your visit today, we recorded the following information about you: Temperature Pulse Blood pressure Weight 98.8 degrees 76/minute 106/70 83.6 kg Mariaa Bianca BERG 11/19/2017 8:35 AM Signed REVIEW OF SYSTEMS: General: The patient denies fatigue, denies weight loss, denies weight gain, denies feeling hot, and denies feelings of cold. Eyes: The patient denies glaucoma, denies eye injury/surgery, wears glasses or contacts. Ear/Nose/Throat: The patient NOTES allergies, NOTES hayfever, denies ear infections, and denies bloody noses. Cardiovascular: The patient denies chest pain, denies heart disease, denies high blood pressure,denies cardiac stent, denies prior heart attack, denies irregular heart beat, denies high cholesterol, denies poor circulation, denies heart failure, other cardiac issues, denies claudication, denies cold feet, denies peripheral arterial stent. Respiratory: The patient denies tuberculosis, denies pneumonia, denies frequent cough, denies pulmonary embolism, denies shortness of breath, and denies coughing up blood. Gastrointestinal: The patient denies difficulty swallowing, denies acid reflux, denies ulcers, denies vomiting, denies jaundice/hepatitis, denies gallbladder problems, denies black or tarry stools, denies hemorrhoids, denies bleeding from rectum, NOTES diverticulitis, NOTES constipation, denies diarrhea, denies loss of stool control, and denies hernias. Kidney/Bladder: The patient denies kidney stones, denies urine infections, and denies bloody urine. Skin: The patient denies a history of skin cancer, denies bleeding/changing moles, and denies a history of skin rash. Neurologic: The patient denies a history of epilepsy/convulsions, denies headaches, denies head/spinal injuries, and denies stroke/TIA. Psychiatric: The patient denies psychiatric medications, denies depression, and denies voices, denies substance abuse. Endocrine: The patient NOTES thyroid disorders, denies diabetes, and denies hormonal problems. Hematologic: The patient denies a history of bruising, denies bleeding, and denies anemia, denies blood clots. Infections: The patient denies a history of measles and mumps, denies rheumatic fever, and denies sexually transmitted diseases. Musculoskeletal: The patient NOTES back pain/injury, denies back problems, denies sciatica, denies knee/foot trouble, NOTES arthritis, or denies gout. When was patient's last Mammogram screening? N/A Last Colonoscopy: None Mariaa Grace MD 11/20/2017 7:56 PM Signed Asia aHwley 1960 REFERRING PHYSICIAN: Priyanka Smith MD CHIEF COMPLAINT: Consult (abdominal pain) HPI: The patient is a 57 year old female with a complaint of chronic left lower quadrant abdominal pain Had colonoscopy 2015 she states that she was told it was negative. Underwent urgent laparoscopic sigmoid colectomy for diverticulitis with small contained perforation. Was told that she had 6 inches removed. States that she has had episodes of diverticulitis since surgery - 1-2 per year. States that she has left lower quadrant and suprapubic pain since surgery. Has occasional constipation. Has bowel movement about every other day. Was told to stay away from nuts/popcorn/seeds, etc. Takes mag citrate on regular basis Tried to make an appointment at [facility] and was told that there was nothing that can be done Also noted to have left ovarian cyst. EGD 08/31/16 - normal PAST MEDICAL HISTORY Diagnosis Date - Abnormal Papanicolaou smear of vagina and vaginal HPV - Diverticulitis of sigmoid colon 12/07/2009 ACUTE - Diverticulosis of colon (without mention of hemorrhage) - GERD (gastroesophageal reflux disease) 10/01/2017 - Hives - Intramural leiomyoma of uterus - Rectal bleed 09/05/14 - Unspecified hypothyroidism PAST SURGICAL HISTORY Procedure Laterality Date - CERVIX UTERI CAUTER CRYOCAUTER 1999 - COLONOSCOP W/ OR W/O BRSH SPEC 04/10/09 - COLONOSCOP W/ OR W/O BRS SPEC 09/05/14 Repeat 2024 - COLPOSCOPY (VAGINOSCOPY) Multiple starting 1995 Colposcopy - LAPAROSCOPIC HEMICOLECTOMY 12/07/2009 diverticulitis - LIGATE FALLOPIAN TUBE Tubal ligation - PAST SURGICAL HISTORY OF 10/2008 T9-L1 fusion, Dr. Lemon - PAST SURGICAL HISTORY OF 10/24/2009 Removed T9-L1, 2 rods and 8 screws, Dr Lemon - REMOVAL GALLBLADDER Cholecystectomy - REPAIR INTERCARP/CARP-METACARP JT Right 10/13/2017 Right thumb CMC arthroplasty with LRTI Current Outpatient Prescriptions: levothyroxine (SYNTHROID) 75 mcg tablet TAKE 1 TABLET ONCE DAILY ON AN EMPTY STOMACH FOR THYROID acetaminophen (TYLENOL) 325 mg cap Take by mouth as needed. promethazine (PHENERGAN) 12.5 mg tablet Take 1 tablet by mouth every 6 hours as needed. multivitamins(DAILY MULTIVITAMIN TAB) Take one(1) tablet daily. ASPIRIN 81 MG TAB Take one(1) tablet daily. ALLERGIES: Environmental [Other]; Hay Fever [Seasonal Allergies]; Zyrtec [Cetirizine Hcl] PERSONAL HISTORY: Social History Marital status: Spouse name: Years of education: Number of children: 2 Occupational History Occupation Employer Comment [employer] Social History Main Topics Smoking status: Never Smoker Smokeless tobacco: Never Used Comment: No one in household smokes Alcohol use: Yes Comment: Rarely Drug use: No Sexual activity: Yes Partners with: Male control/protection: Tubal Ligation FAMILY HISTORY Problem Relation Age of Onset - Hypertension Mother - Thyroid Mother - Heart Father - Hypertension Father - Heart Maternal Grandmother - Stroke Maternal Grandmother - Cancer Maternal Grandmother COLON - Cancer Paternal Grandmother STOMACH REVIEW OF SYSTEMS: General: The patient denies fatigue, denies weight loss, denies weight gain, denies feeling hot, and denies feelings of cold. Eyes: The patient denies glaucoma, denies eye injury/surgery, wears glasses or contacts. Ear/Nose/Throat: The patient NOTES allergies, NOTES hayfever, denies ear infections, and denies bloody noses. Cardiovascular: The patient denies chest pain, denies heart disease, denies high blood pressure,denies cardiac stent, denies prior heart attack, denies irregular heart beat, denies high cholesterol, denies poor circulation, denies heart failure, other cardiac issues, denies claudication, denies cold feet, denies peripheral arterial stent. Respiratory: The patient denies tuberculosis, denies pneumonia, denies frequent cough, denies pulmonary embolism, denies shortness of breath, and denies coughing up blood. Gastrointestinal: The patient denies difficulty swallowing, denies acid reflux, denies ulcers, denies vomiting, denies jaundice/hepatitis, denies gallbladder problems, denies black or tarry stools, denies hemorrhoids, denies bleeding from rectum, NOTES diverticulitis, NOTES constipation, denies diarrhea, denies loss of stool control, and denies hernias. Kidney/Bladder: The patient denies kidney stones, denies urine infections, and denies bloody urine. Skin: The patient denies a history of skin cancer, denies bleeding/changing moles, and denies a history of skin rash. Neurologic: The patient denies a history of epilepsy/convulsions, denies headaches, denies head/spinal injuries, and denies stroke/TIA. Psychiatric: The patient denies psychiatric medications, denies depression, and denies voices, denies substance abuse. Endocrine: The patient NOTES thyroid disorders, denies diabetes, and denies hormonal problems. Hematologic: The patient denies a history of bruising, denies bleeding, and denies anemia, denies blood clots. Infections: The patient denies a history of measles and mumps, denies rheumatic fever, and denies sexually transmitted diseases. Musculoskeletal: The patient NOTES back pain/injury, denies back problems, denies sciatica, denies knee/foot trouble, NOTES arthritis, or denies gout. PHYSICAL EXAMINATION: General: The patient is 57 year old female, well nourished, well hydrated in no acute distress. The patient is oriented to time, place, and person. VITALS: Blood pressure 106/70, pulse 76, temperature 37.1 ?C (98.8 ?F), weight 83.6 kg (184 lb 3.2 oz). Body mass index is 30.65 kg/m?. Head ? Normocephalic. EOM intact with sclera clear and no icterus noted. Wearing glasses. Mouth with mucus membranes moist. Neck - supple with no jugular venous distention noted. Trachea is midline. No carotid bruits noted. No masses noted. Lungs ? clear to auscultation. Normal breath sounds. No rales/rhonchi/wheezing noted. No labored breathing noted, such as retractions. Heart ? normal S1 and S2 auscultated. No rubs/clicks/murmurs noted. Regular rate. Abdomen ? soft and benign. Tender in left lower quadrant and suprapubic area, but no peritoneal signs, normal bowel sounds No masses noted. Extremities ? no calf tenderness noted. No pitting edema noted. . Skin ? normal skin integrity. Neurological ? gait normal, no focal deficits noted Psych ? calm and appropriate Assessment IMPRESSION: chronic left lower quadrant abdominal pain, chronic diveriticulitis, altered bowel habits PLAN: I have discussed the above with the patient. She states that she had 6 inches of her colon removed. She may require further resection, given her continued disease process. I would recommend further evaluation of the extent of her disease with ACBE. She had a colonoscopy relatively recently in 2014 which revealed diverticulosis and no other major pathology. She may be a candidate for additional resection of her colon, and patient seems amenable to this. I will have patient follow up with me after ACBE to review the results. The patient wishes to proceed. I have answered all questions to the patient?s satisfaction and the patient has no further questions. Greater than 50% of this patient encounter was dedicated to face to face discussion with the patient - total time spent with patient 25 minutes Diagnoses: (R10.30) Lower abdominal pain (primary encounter diagnosis) (K57.30) Diverticulosis of large intestine without perforation or abscess without bleeding Return to Clinic: The patient is instructed to follow-up with me after ACBE. Lola Grace MD Referring Provider: PRIYANKA SMITH [[id number]] Allergies As of Date: 11/18/2017 Noted Allergy Reaction environmental [Other] 12/28/2006 Comments: ? what=congestion HAY FEVER (SEASONAL ALLERGIES) 08/13/2009 ZYRTEC (CETIRIZINE HCL) 08/06/2014 9 - Itching Date Reviewed: 11/18/2017 Reviewed by: Lacy Cuevas RN - Fully Assessed Reason for Visit: Consult [173] Cmt: abdominal pain Primary Visit Diagnosis:Lower abdominal pain [R10.30] Other Visit Diagnosis:Diverticulosis of large intestine without perforation or abscess without bleeding [K57.30] Prescriptions as of 11/18/2017 Sig: LEVOTHYROXINE 75 MCG TABLET TAKE 1 TABLET ONCE DAILY ON A* ACETAMINOPHEN 325 MG CAPSULE Take by mouth as needed. PROMETHAZINE 12.5 MG TABLET Take 1 tablet by mouth every * * DAILY MULTIVITAMIN TABLET Take one(1) tablet daily. * ASPIRIN 81 MG TABLET Take one(1) tablet daily. Problem List As Of Date 11/18/2017 Noted Resolved Hypothyroidism [E03.9] Abnormal Papanicolaou Smear of Vagina and Vagin* 02/06/2010 Dyspareunia [RFQ2548] INVALID FOR*02/06/2010 Fx Sacrum/Coccyx-Closed [S32.10XA, S32.2XXA] INVALID FOR*02/06/2010 Fx Dorsal Vertebra-Closed [S22.009A] INVALID FOR*02/06/2010 Diverticulosis [K57.90] INVALID FOR* Calcaneal spur [M77.30] INVALID FOR*10/01/2017 Hives [L50.9] 10/01/2017 Chronic urticaria [L50.8] INVALID FOR*10/01/2017 Open wound(s) (multiple) of unspecified site(s)*INVALID FOR*10/01/2017 Primary osteoarthritis of first carpometacarpal*INVALID FOR* More... Obesity, Class I, BMI 30-34.9 E66.9 [E66.9] INVALID FOR* GERD (gastroesophageal reflux disease) [K21.9] INVALID FOR* Visit Notes: >> Mariaa Valenzuela LPN WedNov 19, 2017 8:34 AM Status: Signed REVIEW OF SYSTEMS: General: The patient denies fatigue, denies weight loss, denies weight gain, denies feeling hot, and denies feelings of cold. Eyes: The patient denies glaucoma, denies eye injury/surgery, wears glasses or contacts. Ear/Nose/Throat: The patient NOTES allergies, NOTES hayfever, denies ear infections, and denies bloody noses. Cardiovascular: The patient denies chest pain, denies heart disease, denies high blood pressure,denies cardiac stent, denies prior heart attack, denies irregular heart beat, denies high cholesterol, denies poor circulation, denies heart failure, other cardiac issues, denies claudication, denies cold feet, denies peripheral arterial stent. Respiratory: The patient denies tuberculosis, denies pneumonia, denies frequent cough, denies pulmonary embolism, denies shortness of breath, and denies coughing up blood. Gastrointestinal: The patient denies difficulty swallowing, denies acid reflux, denies ulcers, denies vomiting, denies jaundice/hepatitis, denies gallbladder problems, denies black or tarry stools, denies hemorrhoids, denies bleeding from rectum, NOTES diverticulitis, NOTES constipation, denies diarrhea, denies loss of stool control, and denies hernias. Kidney/Bladder: The patient denies kidney stones, denies urine infections, and denies bloody urine. Skin: The patient denies a history of skin cancer, denies bleeding/changing moles, and denies a history of skin rash. Neurologic: The patient denies a history of epilepsy/convulsions, denies headaches, denies head/spinal injuries, and denies stroke/TIA. Psychiatric: The patient denies psychiatric medications, denies depression, and denies voices, denies substance abuse. Endocrine: The patient NOTES thyroid disorders, denies diabetes, and denies hormonal problems. Hematologic: The patient denies a history of bruising, denies bleeding, and denies anemia, denies blood clots. Infections: The patient denies a history of measles and mumps, denies rheumatic fever, and denies sexually transmitted diseases. Musculoskeletal: The patient NOTES back pain/injury, denies back problems, denies sciatica, denies knee/foot trouble, NOTES arthritis, or denies gout. When was patient's last Mammogram screening? N/A Last Colonoscopy: None Mariaa Valenzuela LPN Letter Text Encounter Status:Closed by MD LOLA GRACE on 11/20/17 EMERGENCY DEPARTMENT Observed: 11/16/2017 Status: F Source: [place] SUMMARY 4:31 PM [facility] REPOSITORY [facility] Medical Records Department [address] [place] [address] Emergency Department Summary 11/16/17 1433 MR#: [id number] Acct: [id number] Name: CHANDANASIA M Rep #: [id number] : 1960 57 From: Matt Pak MD PCP: Luis BHATT,Priyanka Status: DEP ER - ER Visit Summary Date of Service: 11/16/17 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: Abdominal pain History of Present Illness: The patient is a [address] Grace and Dr. Smith. She reports that she has lower abdominal pain began 2 weeks ago. She was diagnosed clinically with diverticulitis and was placed on Cipro and Flagyl. She finished these 4 days ago and is continuing to have discomfort. Patient claims of a stabbing pain is 10 at 10 worsening a 10 currently. Is worsened by movement or walking. Is relieved by remaining still. She has had nausea without vomiting. She reports her last bowel was 1 week ago. Typically she has a bowel movement daily. She denies any dysuria or frequency. Physical Examination: Vitals: Stable. Afebrile. General: Well-nourished and well-developed. Head: Normocephalic atraumatic. Neck: Supple, no lymphadenopathy. No JVD. Nontender. Cardiovascular: Regular rate and rhythm. No murmurs. Respiratory: No respiratory distress. Clear to auscultation bilaterally. Abdominal: Soft, moderate suprapubic tenderness to palpation, nondistended, normal bowel sounds. No guarding, rebound, or peritoneal signs. Rectal: No stool in the vault. Back: Nontender. Extremities: Nontender, no edema. Skin: Normal color, no rash. Neurologic: Alert and oriented 3. Cranial nerves II through XII are intact. Normal strength and sensation. Psych: Normal affect. Test Results: CBC is normal. Chem-7 is more for glucose 111. LFTs are marked for an ALT of 72 and AST 57. Lipase is normal. Transvaginal ultrasound shows a 3.6 x 3.6 cm left ovarian cyst. Once admitted fibroid. CT flank shows a normal appendix and a 3.5 x 3.9 cm left ovarian cyst. Diverticulosis, but no diverticulitis. Normal appendix. Emergency Department Course and Treatment: Patient initially had a CT scan. Due to the concern of an ovarian cyst in summary that is postmenopausal the ultrasound and a CA 125 were ordered. Treatment Plan: Patient be discharged with magnesium citrate. She is instructed to follow-up with Dr. Grace in 1-2 days if she does not have a bowel movement with this. [facility] is [facility]5 days for further evaluation of the ovarian cyst. Return to the emergency department for any worsening symptoms. Disposition: To home in improved and stable condition. Impression: 1. Constipation. 2. Left ovarian cyst. 3. Diverticulosis. This note was generated with [employer] dictation software. It may contain incorrect words, spelling, and punctuation that were not noted in review of the chart prior to signing ED Disposition - Plan for ED Patient: Disposition: Home or Assisted Living 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: Abd Pain Instructions: ED Constipation, ED Cyst Ovarian Prescriptions: Magnesium Citrate [Citrate Of Magnesia] 300 ml PO X1 #1 bottle Referrals: Cleo Maynard CNM [Certified Nurse Underground Conduit Installer] - 3-5 Days Bar Grace MD [STAFF PHYSICIAN] - 1-2 Days if not improving What to do if you have Problems For any increased pain, shortness of breath, bleeding, nausea or vomiting, chest pain, or any unexpected problems, contact your Primary Care Provider. Call [facility] ([phone]) or report to the closest Emergency Room. Call 911 if necessary. 11/16/17 1631 <Electronically signed by Matt Pak MD> Date Matt Pak MD Cosigner Signature (If Indicated): Date CC: Priyanka Smith MD CA 125 SERIAL Collected: 11/16/2017 Status: F Source: [place] MONITOR 1:05 PM [facility] REPOSITORY TYPE CODE TESTS RESULT OUT OF RANGE REFERENCE UNITS LAB L3100.5010 0.0-38.1 U/mL Normal CA125 15.8 2303 Result Comment: Amelia ECLIA methodology Performed at: - [address] [id number] Behavioral Health Consultant: Lewis Kingston PhD, Phone: [phone] LAB L3759.4741 Normal CA 125 SM GRAPH Result Comment: Scanned image report available in EMR Performed By: #### L3100.4950 #### [facility] (refer to report for specific site) refer to report for address and phone number TRANSVAGINAL Observed: 11/16/2017 Status: F Source: [place] NON- 12:44 PM [facility] REPOSITORY [facility] Imaging Services [address] [place] [address] Transvaginal Non- MR#: [id number] Acct: [id number] Name: ASIA HAWLEY Rep #: [id number] : 1960 F 57 From: Joaquin Ellington MD PCP: Luis BHATT,Priyanka Status: REG ER Study: Transvaginal Non- Date of Exam: 11/16/17 Exam# [id number] Ordering Dr: Matt Pak MD STUDY: ULTRASOUND OF THE FEMALE PELVIS - COMPLETE REASON FOR EXAM: Female, 57 years old. Ovarian cyst seen on CT scan. LMP: The patient is postmenopausal. TECHNIQUE: Transvaginal TECHNICAL QUALITY: Adequate. COMPARISON: None. FINDINGS: The uterus is anteverted and is in a midline position. The uterus measures 7.8 cm x 4.7 cm x 3.5 cm. Normal uterine cervix. The endometrium measures 3.8 mm in thickness, and is hyperechoic. There is no demonstrated endometrial mass. There is a 1 cm x 1.1 cm fibroid in the lower uterine segment. I.U.D. - The patient does not have an I.U.D. The right ovary is non-visualized. The left ovary is visualized. The left ovary measures 4 cm x 2.7 cm x 2.9 cm. There is a 3.6 cm x 2.6 cm cyst in the left ovary. There is no visualized left adnexal mass or complex lesion. There is normal arterial and normal venous vascularity. There is no fluid in the cul-de-sac. Polycystic ovary disease: No. US/Transvaginal Non- IMPRESSION: 3.6 cm x 3.6 cm cyst in the left ovary. Small fibroid seen in the lower uterine segment. Electronically Signed: Joaquin Ellington MD at 14:26 EDT Tel [phone], Service support , CC: Priyanka Smith MD; Matt Pak MD Manager Statistical Programming: Signed URINALYSIS, COMPLETE Collected: 11/16/2017 Status: F Source: [place] 12:23 PM [facility] REPOSITORY Order Comment: Order Date: 11/16/17 How was Urine Obtained? CLEAN CATCH TYPE CODE TESTS RESULT OUT OF RANGE REFERENCE UNITS LAB L400.3000 Yellow COLOR Normal Yellow LAB L400.3050 Clear Normal CLARITY Clear LAB L400.3200 Normal mg/dl Normal GLUCOSE, UR Normal LAB L400.3300 Negative mg/dL Normal BILIRUBIN URINE Negative LAB L400.3400 Negative mg/dl Normal KETONE UR Negative LAB L400.3465 1.002-1.030 Normal SP.GR. DIPSTX 1.005 LAB L400.3550 5.0 - 8.0 pH UR Normal 7.0 LAB L400.3600 Negative mg/dl PROT Normal DIPSTX Negative LAB L400.3700 Normal mg/dl Normal UROBILI Normal LAB L400.3750 Negative Normal NITRITE UR Negative LAB L400.3780 Negative /ul High 10 OCCULT BLOOD-UR LAB L400.3800 Negative /ul LEUK Normal ESTERASE Negative LAB L400.4050 0-5 /hpf WBC Normal 0-5 SEEN LAB L400.4100 0-5 /hpf 0 Normal RBC-UA SEEN LAB L400.4150 5-10 /hpf SQUAM 0 Normal EPI SEEN LAB L400.4300 None Seen /hpf 0 Normal BACTERIA SEEN LAB L400.4350 <or=2+ /hpf 0 Normal MUCUS, URINE SEEN Performed By: #### L400.0001 #### [facility] [address] [place], [address] CBC W/DIFF, AUTOMATED Collected: 11/16/2017 Status: F Source: [place] 11:25 AM [facility] REPOSITORY TYPE CODE TESTS RESULT OUT OF RANGE REFERENCE UNITS LAB L100.1000 4.4-11.0 K/mm3 Normal WBC 6.2 LAB L100.1200 4.2-5.4 M/mm3 Normal RBC 4.33 LAB L100.1300 12.0-15.0 g/dl Normal HGB 12.6 LAB L100.1400 37-47 % Normal HCT 37.0 LAB L100.1500 81-99 fL Normal MCV 85.5 LAB L100.1600 27.0-32.0 pg Normal MCH 29.1 LAB L100.1700 32-36 g/gl Normal MCHC 34.1 LAB L100.1810 11.6-14.6 % Normal RDW CV 12.4 LAB L100.1820 35.1-43.9 fl Normal RDW SD 38.0 LAB L100.1900 150-450 K/mm3 Normal PLT 281 LAB L100.2000 6.2-12.0 fl Normal MPV 10.1 LAB L100.2100 47-70 % Normal NEUT% 63.7 LAB L100.2200 19-41 % Normal LY% 26.1 LAB L100.2300 0-10 % Normal MONO% 10.0 LAB L100.2400 0-5 % Normal EO% 0.0 LAB L100.2500 0-1 % Normal BASO% 0.0 LAB L100.2550 0.0-0.9 % Normal IM GRAN % 0.200 Result Comment: IG% - Immature Granulocytes (promyelocytes, myelocytes and metamyelocytes) > 1% indicates that a LEFT SHIFT is Present. LAB L100.2620 2.0-7.7 X10 3/uL Normal Absolute Neut 4.0 LAB L100.2720 0.83-4.51 X10 3/ul Normal Absolute Lymph 1.62 Performed By: #### L100.0100 #### [facility] [address] [place], [address] BASIC METABOLIC Collected: 11/16/2017 Status: F Source: [place] PROFILE (BMP) 11:25 AM [facility] REPOSITORY TYPE CODE TESTS RESULT OUT OF RANGE REFERENCE UNITS LAB L501.0100 74-106 mg/dL High GLU 111 Result Comment: Fasting Glucose result from 100 to 125 mg/dL suggests IMPAIRED HOMEOSTASIS per A.D.A. criteria. Please note revised GLUCOSE reference range effective 2017. LAB L501.1000 7-18 mg/dL Normal BUN 11 LAB L501.1100 0.55-1.02 mg/dL Normal CREAT,SERUM 0.71 Result Comment: The validity of the calculated GFR AND GFRAA in patients over 70 years has not been determined. Clinical correlation is essential. LAB L501.1110 >60 mL/min Normal EST GFR 89 Result Comment: Non- GFR Calc LAB L501.1115 >60 mL/min Normal EST GFR - AA 108 Result Comment: GFR Calc LAB L501.1255 ml/min Normal Estimated CRCL 76.77 LAB L501.1300 10-20 RATIO Normal BUN/CRE 15.5 LAB L501.2200 8.5-10 mg/dL Normal .1 CA 9.2 LAB L501.5300 136-14 mmol/L Normal 5 NA 140 LAB L501.5600 3.5-5. mmol/L Normal 1 K 3.9 LAB L501.5900 98-107 mmol/L Normal CL 107 LAB L501.6100 21.0-3 mmol/L Normal 2.0 CO2 27.0 LAB L501.6200 5-15 Normal GAP 6 Performed By: #### L500.2500, L500.3400, L501.2450 #### [facility] [address] [place], [address] LIVER PROFILE Collected: 11/16/2017 Status: F Source: [place] 11:25 AM [facility] REPOSITORY TYPE CODE TESTS RESULT OUT OF RANGE REFERENCE UNITS LAB L501.1500 6.4-8.2 g/dL Normal T PROT 7.4 LAB L501.1800 3.2-5.0 g/dL Normal ALB 3.7 LAB L501.1950 2.2-4.2 g/dL Normal GLOB 3.7 LAB L501.4100 15-37 U/L High AST 57 LAB L501.4305 45-117 U/L Normal ALK P 79 LAB L501.4405 13-56 U/L High ALT 72 LAB L501.4600 0.20-1.00 mg/dL Normal T BILI 0.60 LAB L501.4700 0.00-0.30 mg/dL Normal D BILI 0.18 Performed By: #### L500.2500, L500.3400, L501.2450 #### [facility] [address] [place], [address] LIPASE Collected: 11/16/2017 Status: F Source: [place] 11:25 AM [facility] REPOSITORY TYPE CODE TESTS RESULT OUT OF RANGE REFERENCE UNITS LAB L501.2450 73-393 U/L Normal LIPASE 138 Performed By: #### L500.2500, L500.3400, L501.2450 #### [facility] [address] [place], [address] ABDOMEN/PELVIS WITHOUT Observed: 11/16/2017 Status: F Source: [place] 11:18 AM [facility] REPOSITORY [facility] Imaging Services [address] [facility] [place] [address] Abdomen/Pelvis without Cont MR#: [id number] Acct: [id number] Name: ASIA HAWLEY Rep #: [id number] : 1960 F 57 From: Joaquin Ellington MD PCP: Luis BHATT,Priyanka Status: REG ER Study: Abdomen/Pelvis without Cont Date of Exam: 11/16/17 Exam# [id number] Ordering Dr: Matt Pak MD STUDY: CT ABDOMEN AND PELVIS WITHOUT CONTRAST REASON FOR EXAM: Female, 57 years old. Abdominal pain and constipation. RADIATION DOSAGE (If Supplied By Facility): CTDIvol = ( 10.97 ) mGy, DLP = ( 545.32 ) mGycm TECHNIQUE: Transaxial images were obtained from the dome of the diaphragm to the symphysis pubis without oral contrast, and without intravenous contrast. Sagittal and coronal images were reconstructed. Individualized dose optimization techniques were used for this CT. COMPARISON: Comparison is made with prior study dated September 30, 2014. FINDINGS: The visualized lung bases are unremarkable. The visualized portions of the heart are within normal limits. Normal liver. The patient is status post cholecystectomy. Normal spleen. Normal pancreas. Normal bilateral adrenal glands. Mild degree of right hydronephrosis. This is unchanged. Normal left kidney. There is a small hiatal hernia. Normal small intestine. There are multiple colonic diverticula consistent with diverticulosis. The appendix is visualized and appears normal. There is scattered atherosclerotic calcification of the abdominal aorta, without a demonstrated aneurysm. Normal inferior vena cava. Normal retroperitoneum. Normal urinary bladder. There is a 3.5 cm x 3.9 cm cyst in the left ovary. Normal abdominal wall. There are diffuse degenerative changes of the visualized lumbar spine. Mild degree of loss of height of the superior endplate of the T12 vertebrae. CT/Abdomen/Pelvis without Cont IMPRESSION: 3.5 cm x 3.9 cm left ovarian cyst. This is slightly enlarged and prior examination. Sigmoid diverticulosis. Electronically Signed: Joaquin Ellington MD at 12:34 EDT Tel [phone], Service support , CC: Priyanka Smith MD; Matt Pak MD Manager Statistical Programming: Signed CNOV Observed: 11/03/2017 Status: COMPLETED Source: [place] 1:00 PM [facility] REPOSITORY Office Visit (FAMPWS) ASIA HAWLEY ([id number]) 1960 F Date Time Provider Department 11/03/17 1:00 PM ANIKA HDZ ([facility]) FAMPWS During your visit today, we recorded the following information about you: Temperature Pulse Respiration Blood pressure 100 degrees 76/minute 14/minute 124/74 Weight 82.6 kg Anika Hdz APRN.DANIEL 11/03/2017 1:17 PM Signed 11/03/2017 Patient presents with: Pain: Patient is here diverticulitis. SUBJECTIVE: This is a 57 year old that is here today for concern for diverticulitis. She states that she has a history of diverticulitis and had 6 inches of colon removed about 6 years ago. She does her best to avoid seeds and nuts, but she ate out the other day and fears that there was something in the sauce. Lower abdominal pain started yesterday and she had small loose stools. Pain is worse today and to the point that she doesn't want to move, she is laying on the couch with a blanket. She has not checked her temp at home, but denies chills. She did not have a BM today, it is typical that she has a BM every other day and they are usually more firm. She will drink more water when she notices that they get harder and they improve. She denies any blood in stools. She denies any urinary concerns including urgency, frequency, burning, flank pain, or blood. Appetite is down because the pain is causing nausea. She is able to drink fluids without worsening symptoms. PAST MEDICAL HISTORY Diagnosis Date - Abnormal Papanicolaou smear of vagina and vaginal HPV - Diverticulitis of sigmoid colon 12/07/2009 ACUTE - Diverticulosis of colon (without mention of hemorrhage) - GERD (gastroesophageal reflux disease) 10/01/2017 - Hives - Intramural leiomyoma of uterus - Rectal bleed 09/05/14 - Unspecified hypothyroidism ALLERGIES Environmental [Other]; Hay Fever [Seasonal Allergies]; Zyrtec [Cetirizine Hcl] MEDICATIONS Current Outpatient Prescriptions: levothyroxine (SYNTHROID) 75 mcg tablet TAKE 1 TABLET ONCE DAILY ON AN EMPTY STOMACH FOR THYROID acetaminophen (TYLENOL) 325 mg cap Take by mouth as needed. promethazine (PHENERGAN) 12.5 mg tablet Take 1 tablet by mouth every 6 hours as needed. multivitamins(DAILY MULTIVITAMIN TAB) Take one(1) tablet daily. ASPIRIN 81 MG TAB Take one(1) tablet daily. No current facility-administered medications for this visit. Medications and allergies reviewed by this provider. SOCIAL HISTORY Social History Marital status: Spouse name: Years of education: Number of children: 2 Occupational History Occupation Employer Comment [employer] Social History Main Topics Smoking status: Never Smoker Smokeless tobacco: Never Used Comment: No one in household smokes Alcohol use: Yes Comment: Rarely Drug use: No Sexual activity: Yes Partners with: Male control/protection: Tubal Ligation REVIEW OF SYSTEMS GENERAL: No weight loss, malaise or fevers RESPIRATORY: Negative for cough, hemoptysis, wheezing, COPD, dyspnea or shortness of breath CARDIOVASCULAR: Negative for chest pain, leg swelling, hypertension, CHF or palpitations GI: See HPI : No history of dysuria, frequency or incontinence OBJECTIVE: BP 124/74 (BP Site: Left Arm, BP Position: Sitting, BP Cuff Size: Regular Adult) Pulse 76 Temp 37.8 ?C (100 ?F) (Tympanic) Resp 14 Wt 82.6 kg (182 lb) LMP 01/07/2011 BMI 30.29 kg/m? . Vital signs reviewed by this provider. PHYSICAL EXAMINATION: General appearance: Well appearing, but moments of obvious discomfort, alert, in no acute distress, well-hydrated, well nourished. Skin: Skin color, texture, turgor normal, no suspicious rashes or lesions Lungs: Lungs clear to auscultation. No wheezing, rhonchi, rales Heart: RRR without murmur, gallop, or rubs. No ectopy Abdomen: Abdomen soft, non-tender. Bowel sounds normal. No masses, organomegaly, Positive findings: tenderness moderate without guarding, rigidity, or rebound to the lower abdomen, more mid lower abdomen Extremities: No deformities, edema, skin discoloration, clubbing or cyanosis. Good capillary refill. , Pulses: 2+. Cast to right lower arm- good cap refill. ASSESSMENT/PLAN: 1. Lower abdominal pain - ICD9: 789.09, ICD10: R10.30 (primary diagnosis) Differential Diagnosis includes Diverticulitis - Antibiotic treatment with Cipro 500 mg BID , Flagyl 500 mg TID - continue to avoid seeds and nuts - increase fluid intake - Increase fiber in diet - [place] low residue diet - CIPROFLOXACIN 500 MG TABLET - METRONIDAZOLE 500 MG TABLET - follow up if symptoms are not improving with treatment. Discussed red flags and when to be seen in ER. 2. Diverticulosis of large intestine without hemorrhage - ICD9: 562.10, ICD10: K57.30 Anika Hdz APRN.DIRECTOR OF LAND ACQUISITION Referring Provider: SELF [200] Allergies As of Date: 11/03/2017 Noted Allergy Reaction environmental [Other] 12/28/2006 Comments: ? what=congestion HAY FEVER (SEASONAL ALLERGIES) 08/13/2009 ZYRTEC (CETIRIZINE HCL) 08/06/2014 9 - Itching Date Reviewed: 11/03/2017 Reviewed by: Pili Valadez Ma - Fully Assessed Reason for Visit: Pain [78] Cmt: Patient is here diverticulitis. Primary Visit Diagnosis:Lower abdominal pain [R10.30] Other Visit Diagnosis:Diverticulosis of large intestine without hemorrhage [K57.30] Order(s):ciprofloxacin HCl (CIPRO) 500 mg tabletTake 1 tablet by mouth twice daily for 10 days.Disp: 20 tabletRfl: 0 metroNIDAZOLE (FLAGYL) 500 mg tabletTake 1 tablet by mouth three times daily for 7 days.Disp: 21 tabletRfl: 0 Prescriptions as of 11/03/2017 Sig: LEVOTHYROXINE 75 MCG TABLET TAKE 1 TABLET ONCE DAILY ON A* ACETAMINOPHEN 325 MG CAPSULE Take by mouth as needed. PROMETHAZINE 12.5 MG TABLET Take 1 tablet by mouth every * * DAILY MULTIVITAMIN TABLET Take one(1) tablet daily. * ASPIRIN 81 MG TABLET Take one(1) tablet daily. CIPROFLOXACIN 500 MG TABLET Take 1 tablet by mouth twice * METRONIDAZOLE 500 MG TABLET Take 1 tablet by mouth three * Problem List As Of Date 11/03/2017 Noted Resolved Hypothyroidism [E03.9] Abnormal Papanicolaou Smear of Vagina and Vagin* 02/06/2010 Dyspareunia [RDK7993] INVALID FOR*02/06/2010 Fx Sacrum/Coccyx-Closed [S32.10XA, S32.2XXA] INVALID FOR*02/06/2010 Fx Dorsal Vertebra-Closed [S22.009A] INVALID FOR*02/06/2010 Diverticulosis [K57.90] INVALID FOR* Calcaneal spur [M77.30] INVALID FOR*10/01/2017 Hives [L50.9] 10/01/2017 Chronic urticaria [L50.8] INVALID FOR*10/01/2017 Open wound(s) (multiple) of unspecified site(s)*INVALID FOR*10/01/2017 Primary osteoarthritis of first carpometacarpal*INVALID FOR* More... Obesity, Class I, BMI 30-34.9 E66.9 [E66.9] INVALID FOR* GERD (gastroesophageal reflux disease) [K21.9] INVALID FOR* Prescriptions ordered this encounter Disp Refills Start End CIPROFLOXACIN 500 MG TABLET 20 t* 0 11/03/2017 11/13/2017 Route: ORAL Sig: Take 1 tablet by mouth twice daily for 10 days. METRONIDAZOLE 500 MG TABLET 21 t* 0 11/03/2017 11/10/2017 Route: ORAL Sig: Take 1 tablet by mouth three times daily for 7 days. Medications Discontinued During This Encounter ciprofloxacin HCl (CIPRO) 500 mg tab* 20 t* 0 05/13/2016 11/03/2017 Route: ORAL Sig: Take 1 tablet by mouth twice daily for 10 days. Disc: Reason for discontinue is not on file. metroNIDAZOLE (FLAGYL) 500 mg tablet 21 t* 0 05/13/2016 11/03/2017 Route: ORAL Sig: Take 1 tablet by mouth three times daily for 7 days. Disc: Reason for discontinue is not on file. Disposition: Return if symptoms worsen or fail to improve. Follow-up and Disposition History Recorded Encounter Status:Closed by ANIKA HDZ on 11/03/17 PROGRESS Observed: 11/03/2017 Status: COMPLETED Source: [place] 12:54 PM [facility] REPOSITORY O ID: [id number] Author: Anika (Daniel) Andreina Service: (none) Author Type: Nurse Practitioner Type: Progress Notes Filed: 11/03/2017 1:17 PM Note Text: 11/03/2017 Patient presents with: Pain: Patient is here diverticulitis. SUBJECTIVE: This is a 57 year old that is here today for concern for diverticulitis. She states that she has a history of diverticulitis and had 6 inches of colon removed about 6 years ago. She does her best to avoid seeds and nuts, but she ate out the other day and fears that there was something in the sauce. Lower abdominal pain started yesterday and she had small loose stools. Pain is worse today and to the point that she doesn't want to move, she is laying on the couch with a blanket. She has not checked her temp at home, but denies chills. She did not have a BM today, it is typical that she has a BM every other day and they are usually more firm. She will drink more water when she notices that they get harder and they improve. She denies any blood in stools. She denies any urinary concerns including urgency, frequency, burning, flank pain, or blood. Appetite is down because the pain is causing nausea. She is able to drink fluids without worsening symptoms. PAST MEDICAL HISTORY Diagnosis Date - Abnormal Papanicolaou smear of vagina and vaginal HPV - Diverticulitis of sigmoid colon 12/07/2009 ACUTE - Diverticulosis of colon (without mention of hemorrhage) - GERD (gastroesophageal reflux disease) 10/01/2017 - Hives - Intramural leiomyoma of uterus - Rectal bleed 09/05/14 - Unspecified hypothyroidism ALLERGIES Environmental [Other]; Hay Fever [Seasonal Allergies]; Zyrtec [Cetirizine Hcl] MEDICATIONS Current Outpatient Prescriptions: levothyroxine (SYNTHROID) 75 mcg tablet TAKE 1 TABLET ONCE DAILY ON AN EMPTY STOMACH FOR THYROID acetaminophen (TYLENOL) 325 mg cap Take by mouth as needed. promethazine (PHENERGAN) 12.5 mg tablet Take 1 tablet by mouth every 6 hours as needed. multivitamins(DAILY MULTIVITAMIN TAB) Take one(1) tablet daily. ASPIRIN 81 MG TAB Take one(1) tablet daily. No current facility-administered medications for this visit. Medications and allergies reviewed by this provider. SOCIAL HISTORY Social History Marital status: Spouse name: Years of education: Number of children: 2 Occupational History Occupation Employer Comment [employer] Social History Main Topics Smoking status: Never Smoker Smokeless tobacco: Never Used Comment: No one in household smokes Alcohol use: Yes Comment: Rarely Drug use: No Sexual activity: Yes Partners with: Male control/protection: Tubal Ligation REVIEW OF SYSTEMS GENERAL: No weight loss, malaise or fevers RESPIRATORY: Negative for cough, hemoptysis, wheezing, COPD, dyspnea or shortness of breath CARDIOVASCULAR: Negative for chest pain, leg swelling, hypertension, CHF or palpitations GI: See HPI : No history of dysuria, frequency or incontinence OBJECTIVE: BP 124/74 (BP Site: Left Arm, BP Position: Sitting, BP Cuff Size: Regular Adult) Pulse 76 Temp 37.8 ?C (100 ?F) (Tympanic) Resp 14 Wt 82.6 kg (182 lb) LMP 01/07/2011 BMI 30.29 kg/m? . Vital signs reviewed by this provider. PHYSICAL EXAMINATION: General appearance: Well appearing, but moments of obvious discomfort, alert, in no acute distress, well-hydrated, well nourished. Skin: Skin color, texture, turgor normal, no suspicious rashes or lesions Lungs: Lungs clear to auscultation. No wheezing, rhonchi, rales Heart: RRR without murmur, gallop, or rubs. No ectopy Abdomen: Abdomen soft, non-tender. Bowel sounds normal. No masses, organomegaly, Positive findings: tenderness moderate without guarding, rigidity, or rebound to the lower abdomen, more mid lower abdomen Extremities: No deformities, edema, skin discoloration, clubbing or cyanosis. Good capillary refill. , Pulses: 2+. Cast to right lower arm- good cap refill. ASSESSMENT/PLAN: 1. Lower abdominal pain - ICD9: 789.09, ICD10: R10.30 (primary diagnosis) Differential Diagnosis includes Diverticulitis - Antibiotic treatment with Cipro 500 mg BID , Flagyl 500 mg TID - continue to avoid seeds and nuts - increase fluid intake - Increase fiber in diet - [place] low residue diet - CIPROFLOXACIN 500 MG TABLET - METRONIDAZOLE 500 MG TABLET - follow up if symptoms are not improving with treatment. Discussed red flags and when to be seen in ER. 2. Diverticulosis of large intestine without hemorrhage - ICD9: 562.10, ICD10: K57.30 Anika Hdz APRN.DIRECTOR OF LAND ACQUISITION T4/FTI Collected: 11/01/2017 Status: F Source: [place] 9:15 AM [facility] REPOSITORY TYPE CODE TESTS RESULT OUT OF REFERENCE UNITS RANGE LAB T4 5.5-10.2 ug/dL T4 9.5 LAB T4U 0.91-1.19 T4 Uptake 1.11 LAB FTI 5.3-10.8 ug/dL FTI 8.6 Performed By: #### T4FTI, HFP, TSH, HACRNA #### [facility] [address] [place], [place] [address] HEPATIC FUNCTN PANEL Collected: 11/01/2017 Status: F Source: [place] 9:15 AM [facility] REPOSITORY TYPE CODE TESTS RESULT OUT OF REFERENCE UNITS RANGE LAB ALB 3.9-4.9 g/dL Albumin 3.9 LAB TBIL 0.2-1.3 mg/dL Bilirubin, Total 0.7 LAB CBIL <0.2 mg/dL Bilirubin,Conjuga <0.2 maday LAB ALKP 32-117 U/L Alkaline Phosphatase 79 LAB AST 13-35 U/L AST High 52 LAB ALT 7-38 U/L ALT High 66 LAB TP 6.3-8.0 g/dL Protein, Total 6.7 Performed By: #### T4FTI, HFP, TSH, HACRNA #### [facility] [address] [id number] TSH Collected: 11/01/2017 Status: F Source: [place] 9:15 AM [facility] REPOSITORY TYPE CODE TESTS RESULT OUT OF RANGE REFERENCE UNITS LAB TSH 0.400-5.500 uU/mL TSH 1.800 Performed By: #### T4FTI, HFP, TSH, HACRNA #### [facility] [address] [place], [place] [address] HEPATITIS ACUTE RNA Collected: 11/01/2017 Status: F Source: [place] 9:15 AM [facility] REPOSITORY TYPE CODE TESTS RESULT OUT OF REFERENCE UNITS RANGE LAB AHAVM Negative Hepatitis A Ab Negative IgM LAB HBSAGA Negative HBsAg Negative LAB HCQPCR IU/mL Hepatitis C RNA HCV RNA not detected by PCR. Result Comment: Reference Range: Negative for HCV RNA The Linear Range of this assay is 15 IU/mL to 100,000,000 IU/mL. LAB AHBCM Negative Negative Hep B Core Ab, IgM Performed By: #### T4FTI, HFP, TSH, HACRNA #### [facility] [address] [place], [place] [address] PROGRESS Observed: 10/25/2017 Status: COMPLETED Source: [place] 11:38 AM [facility] REPOSITORY HNO ID: [id number] Author: Ghazal Osborn (Pa) Service: (none) Author Type: Physician Cosmetology Educator Type: Progress Notes Filed: 10/25/2017 11:44 AM Note Text: Ghazal Osborn PA-C Department of Orthopaedics [facility] [address] [address] Dept: [phone] Dept October 25, 2017 CHIEF COMPLAINT: Surgical Followup (1 week 5 days post op right thumb CMC arthroplasty with LRTI). ASSESSMENT: M18.11 Primary osteoarthritis of first carpometacarpal joint of right hand (primary encounter diagnosis) SUMMARY/PLAN: Patient presents 1 week and 5 days status post right from CMC arthroplasty with LRTI. She is doing rather well. Notes only some mild discomfort in the base of her right thumb with overuse or overactivity. Pain today is a 1 out of 10 and all ache at the base of the thumb. Patient has been elevating quite often and icing only as needed. She tells me that she no longer needs to take any of the postoperative pain medications, only taking Tylenol as needed. We will get her into a thumb spica cast today, we discussed that she should avoid any type of pinching grasp with her right hand. She is scheduled to follow-up November 23, and has an occupational therapy appointment to follow. Exam: Right hand incision sites are well approximated without erythema, discharge or drainage. There is resolving ecchymosis along the volar aspect of the wrist and at the right thumb IP joint. Patient notes some subjective irritation of the radial sensory nerve on the right. Patient is able to gently forearm a composite fist and extend all fingers. Imaging: Deferred today Ms. Asia Hawley was advised as to contrast therapies and/or to take analgesics/anti-inflammatories as needed and all contraindications were reviewed. Supporting Information Below: Medications: Current Outpatient Prescriptions: acetaminophen (TYLENOL) 325 mg cap Take by mouth as needed. promethazine (PHENERGAN) 12.5 mg tablet Take 1 tablet by mouth every 6 hours as needed. levothyroxine (SYNTHROID) 75 mcg tablet TAKE 1 TABLET ONCE DAILY ON AN EMPTY STOMACH FOR THYROID multivitamins(DAILY MULTIVITAMIN TAB) Take one(1) tablet daily. ASPIRIN 81 MG TAB Take one(1) tablet daily. No current facility-administered medications for this visit. Allergies: Environmental [Other]; Hay Fever [Seasonal Allergies]; Zyrtec [Cetirizine Hcl] This note was partially generated using [employer] voice recognition system, and there may be some incorrect words, spellings, and punctuation that were not noted in checking the note before saving. Ghazal Osborn PA-C PROGRESS Observed: 10/25/2017 Status: COMPLETED Source: [place] 11:37 AM [facility] REPOSITORY HNO ID: [id number] Author: Lacy Crooks Ma Service: (none) Author Type: (none) Type: Progress Notes Filed: 10/25/2017 11:44 AM Note Text: PT ASSESSMENT - CASTING ROOM Asia presents for Application of cast. Applied thumb spica short cast: to Right hand using stockinette, webril and 3 rolls of fiberglass. Patient has been instructed in Care of cast. Instructions added to AVS for patient to read at home. She already has next follow up scheduled. Lacy Crooks Ma CNOV Observed: 10/25/2017 Status: COMPLETED Source: [place] 11:00 AM [facility] REPOSITORY Office Visit (ORTHWS) ASIA HAWLEY ([id number]) 1960 F Date Time Provider Department 10/25/17 11:00 AM GHAZAL OSBORN) ORTHWS During your visit today, we recorded the following information about you: Lola Roberts Ma 10/25/2017 11:44 AM Signed Patient presents with: Surgical Followup: 1 week 5 days post op right thumb CMC arthroplasty with LRTI AMB ROOMING INTAKE FLOWSHEET DATA Risk Screening Do you have concerns about personal safety or safety in the home?: No Splint intact and removed. Patient tolerated well. steri-strips intact. No drainage at incision sites. Taking Tylenol as needed for discomfort. Lacy Crooks Ma 10/25/2017 11:10 AM Signed NON WATER PROOF-CAST / SPLINT CARE * Keep the cast/splint dry-if it becomes wet please call the office immediately and we will arrange a cast change. * Make sure you can see the toes, if the toes disappear it may mean the cast is falling off. Please call the office' Emergency number immediately. * Make sure the toes are warm and pink if they become cold and blue, call immediately or go to the ER. * If you notice a foul oder and /or an increase drainage area on the cast/splint call immediately. * Do not put anything your cast, (powder, deodorant, pens, ect...) If you do put something down your cast call immediately. * If the cast/splint itches, you may take benadryl , or put a blow dryer on the cool setting and blow some cool air down your cast. *Pain that is constant, call immediately. * If you have any questions please do not hesitate to call. * Office phone: [phone] *Emergency to speak with nurse regional intermodal truck driver. Lacy Crooks Ma 10/25/2017 11:44 AM Signed PT ASSESSMENT - CASTING ROOM Asia presents for Application of cast. Applied thumb spica short cast: to Right hand using stockinette, webril and 3 rolls of fiberglass. Patient has been instructed in Care of cast. Instructions added to AVS for patient to read at home. She already has next follow up scheduled. Lacy Osborn PA-C 10/25/2017 11:44 AM Signed Ghazal Osborn PA-C Department of Orthopaedics Orthopa[facility] [address] [address] Dept: [phone] Dept October 25, 2017 CHIEF COMPLAINT: Surgical Followup (1 week 5 days post op right thumb CMC arthroplasty with LRTI). ASSESSMENT: M18.11 Primary osteoarthritis of first carpometacarpal joint of right hand (primary encounter diagnosis) SUMMARY/PLAN: Patient presents 1 week and 5 days status post right from CMC arthroplasty with LRTI. She is doing rather well. Notes only some mild discomfort in the base of her right thumb with overuse or overactivity. Pain today is a 1 out of 10 and all ache at the base of the thumb. Patient has been elevating quite often and icing only as needed. She tells me that she no longer needs to take any of the postoperative pain medications, only taking Tylenol as needed. We will get her into a thumb spica cast today, we discussed that she should avoid any type of pinching grasp with her right hand. She is scheduled to follow-up November 23, and has an occupational therapy appointment to follow. Exam: Right hand incision sites are well approximated without erythema, discharge or drainage. There is resolving ecchymosis along the volar aspect of the wrist and at the right thumb IP joint. Patient notes some subjective irritation of the radial sensory nerve on the right. Patient is able to gently forearm a composite fist and extend all fingers. Imaging: Deferred today . Asia Hawley was advised as to contrast therapies and/or to take analgesics/anti-inflammatories as needed and all contraindications were reviewed. Supporting Information Below: Medications: Current Outpatient Prescriptions: acetaminophen (TYLENOL) 325 mg cap Take by mouth as needed. promethazine (PHENERGAN) 12.5 mg tablet Take 1 tablet by mouth every 6 hours as needed. levothyroxine (SYNTHROID) 75 mcg tablet TAKE 1 TABLET ONCE DAILY ON AN EMPTY STOMACH FOR THYROID multivitamins(DAILY MULTIVITAMIN TAB) Take one(1) tablet daily. ASPIRIN 81 MG TAB Take one(1) tablet daily. No current facility-administered medications for this visit. Allergies: Environmental [Other]; Hay Fever [Seasonal Allergies]; Zyrtec [Cetirizine Hcl] This note was partially generated using [employer] voice recognition system, and there may be some incorrect words, spellings, and punctuation that were not noted in checking the note before saving. Ghazal Osborn PA-C Referring Provider: SELF [200] Allergies As of Date: 10/25/2017 Noted Allergy Reaction environmental [Other] 12/28/2006 Comments: ? what=congestion HAY FEVER (SEASONAL ALLERGIES) 08/13/2009 ZYRTEC (CETIRIZINE HCL) 08/06/2014 9 - Itching Date Reviewed: 10/25/2017 Reviewed by: Ghazal Osborn (Pa) - Fully Assessed Reason for Visit: Surgical Followup [104] Cmt: 1 week 5 days post op right thumb CMC arthroplasty with LRTI Primary Visit Diagnosis:Primary osteoarthritis of first carpometacarpal joint of right hand [M18.11] Prescriptions as of 10/25/2017 Sig: ACETAMINOPHEN 325 MG CAPSULE Take by mouth as needed. PROMETHAZINE 12.5 MG TABLET Take 1 tablet by mouth every * LEVOTHYROXINE 75 MCG TABLET TAKE 1 TABLET ONCE DAILY ON A* * DAILY MULTIVITAMIN TABLET Take one(1) tablet daily. * ASPIRIN 81 MG TABLET Take one(1) tablet daily. Problem List As Of Date 10/25/2017 Noted Resolved Hypothyroidism [E03.9] Abnormal Papanicolaou Smear of Vagina and Vagin* 02/06/2010 Dyspareunia [MHZ5236] INVALID FOR*02/06/2010 Fx Sacrum/Coccyx-Closed [S32.10XA, S32.2XXA] INVALID FOR*02/06/2010 Fx Dorsal Vertebra-Closed [S22.009A] INVALID FOR*02/06/2010 Diverticulosis [K57.90] INVALID FOR* Calcaneal spur [M77.30] INVALID FOR*10/01/2017 Hives [L50.9] 10/01/2017 Chronic urticaria [L50.8] INVALID FOR*10/01/2017 Open wound(s) (multiple) of unspecified site(s)*INVALID FOR*10/01/2017 Primary osteoarthritis of first carpometacarpal*INVALID FOR* More... Obesity, Class I, BMI 30-34.9 E66.9 [E66.9] INVALID FOR* GERD (gastroesophageal reflux disease) [K21.9] INVALID FOR* Other instructions from your clinician: NON WATER PROOF-CAST / SPLINT CARE * Keep the cast/splint dry-if it becomes wet please call the office immediately and we will arrange a cast change. * Make sure you can see the toes, if the toes disappear it may mean the cast is falling off. Please call the office' Emergency number immediately. * Make sure the toes are warm and pink if they become cold and blue, call immediately or go to the ER. * If you notice a foul oder and /or an increase drainage area on the cast/splint call immediately. * Do not put anything your cast, (powder, deodorant, pens, ect...) If you do put something down your cast call immediately. * If the cast/splint itches, you may take benadryl , or put a blow dryer on the cool setting and blow some cool air down your cast. *Pain that is constant, call immediately. * If you have any questions please do not hesitate to call. * Office phone: [phone] *Emergency to speak with nurse regional intermodal truck driver. Encounter Status:Closed by GHAZAL OSBORN PA-C on 10/25/17 PROGRESS Observed: 10/25/2017 Status: COMPLETED Source: [place] 10:41 AM [facility] REPOSITORY HNO ID: [id number] Author: Lola Roberts Ma Service: (none) Author Type: (none) Type: Progress Notes Filed: 10/25/2017 11:44 AM Note Text: Patient presents with: Surgical Followup: 1 week 5 days post op right thumb CMC arthroplasty with LRTI AMB ROOMING INTAKE FLOWSHEET DATA Risk Screening Do you have concerns about personal safety or safety in the home?: No Splint intact and removed. Patient tolerated well. steri-strips intact. No drainage at incision sites. Taking Tylenol as needed for discomfort. PT ED Observed: 10/13/2017 Status: COMPLETED Source: [place] 4:35 PM [facility] REPOSITORY HNO ID: [id number] Author: Karla (Rn) JUAN Mar Service: Nursing Author Type: Registered Nurse Type: Patient Education Filed: 10/13/2017 4:35 PM Note Text: POST OP LEARNING RESPONSE INSTRUCTION PROVIDED TO: Patient and family member METHOD OF INSTRUCTION: Written instruction - handouts Verbal instruction PATIENT / FAMILY RESPONSE: Information received as demonstrated by interest and questions FOLLOW-UP PLAN: Patient instructed to call with any further issues SUPPLEMENTAL MATERIAL: None REFERRAL (RECOMMENDATION): None Electronically Signed By: Karla Mar RN In Department: [facility] SURGERY OPERATIVE NO Observed: 10/13/2017 Status: COMPLETED Source: [place] 4:06 PM [facility] REPOSITORY HNO ID: [id number] Author: Raul Clifton Service: Orthopaedic Surgery Author Type: Physician Type: Operative Report Filed: 10/13/2017 4:16 PM Note Text: OPERATIVE/PROCEDURE REPORT LOG ID: [id number] SURGERY/PROCEDURE DATE: 10/13/2017 INCISION/PROCEDURE START TIME: 2:04 PM INCISION CLOSE/PROCEDURE END TIME: 3:19 PM SURGEON(S)/PROCEDURALIST(S) AND BUCKET PUSHER(S): Surgeon(s) and Role: * Raul Clifton - Primary Physician Cosmetology Educator: Rosetta Jamil SURGERY/PROCEDURE(S): Right thumb, carpal metacarpal arthroplasty with ligament reconstruction and tendon interposition. ANESTHESIA: General with regional block. SURGERY/PROCEDURE DETAILS: On 10/13/2017, the patient was clearly identified in the preoperative area and marked accordingly on the right wrist by me. She received a regional block per the anesthetic team. She received 2g of Ancef in the IV within 1 hour of incision or tourniquet. She was taken to the operative suite and placed in supine position with an armboard on the right. Anesthesia assumed care of the head and neck for the remainder of the case and continued with a MAC supplemental anesthetic. A well-padded upper brachium tourniquet was applied with Webril padding and set at 250 mmHg, but not yet inflated. The right upper extremity was then sterilely prepped and draped in standard fashion. An appropriate time-out was conducted and all in the room were in agreement, signed consent forms on the chart, images were available for viewing. All other bony landmarks were appropriately padded in standard fashion. It was exsanguinated with an eschmarc bandage, and the tourniquet was applied at 250 mmHg. A longitudinal incision was made over the CMC joint. I identified the cutaneous branches of the radial nerve and dissected these down, protected them throughout the case. I came down full-thickness with a 15- blade in between the APL and EPB tendons came full-thickness down through the capsule and periosteum of the base of the metacarpal and the CMC joint. I identified after blunt dissection, the radial artery in the proximal portion of the wound and protected this throughout the case and the articular branche was ligated with bipolar cautery. I then painstakingly identified the borders of the trapezium with both sharp dissection as well as a [place] elevator and while protecting the nearby structures, she had impressive osteophytes as well as a flattened and deformed trapezium. I used a reciprocating blade and scored an X in the bone. The osteotomies were completed with a quarter-inch osteotome. I piecemeal removed the trapezium painstakingly while protecting the FCR tendon in the base of the trapeziectomy site. Once all the bony debris was removed. The wound was irrigated. I placed a 3-0 Tycron suture in the volar capsule for later use. I then used sequential drill bits to make a drill hole on the dorsal surface 1 cm from the base of the metacarpal and with the exit point just slightly on the volar side to affectively recreate the beak ligament later. Again the joint was flushed from any bony debris. On the volar wrist, the patient did have a palmaris longus. I made a small 1 cm incision over the proximal wrist crease, bluntly dissected out palmaris longus, placed a whipstitch and divided it distally. I then cautiously passed a tendon stripper up the forearm and removed the free graft. The muscle components were trimmed. I subsequently brought it up through the drill hole to recreate the beak ligament and brought it up through the dorsal hole, and tying a series of square knots, and securing it with a series of xywnyk-ok-[id number] sutures with a 3-0 Tycron. This provided an excellent suspension and I took the remaining portion of the tendon and rolled it up into an anchovy and secured this again with movghk-tr-ognds Tycron, then buried it into the trapeziectomy site for the interposition. I then used my previously placed Tycron and secured the interposition without any subluxation. I copiously irrigated the surgical site. Bipolar electrocautery was used for hemostasis. I closed the capsule with a 3-0 Biosyn suture in a uzcsg-mdkm-mard fashion. The skin edges were then closely approximated with a 3-0 Biosyn suture and a 4-0 Biosyn subcuticular weave was completed for final closure. Steri-Strips, Xeroform gauze, sterile 4 x 4's and a well-padded thumb spica fiberglass splint was applied with the IP joint free. A light Osiel wrap and Andrea bandage was placed for final bandage. There were no complications during the procedure. Patient was safely awoken and transferred to the post anesthetic area in stable condition. PRE-OP/PRE-PROCEDURE DIAGNOSIS: Primary osteoarthritis of first carpometacarpal joint of right hand [M18.11] POST-OP/POST-PROCEDURE DIAGNOSIS: Primary osteoarthritis of first carpometacarpal joint of right hand [M18.11] ESTIMATED BLOOD LOSS: 0 mls SPECIMENS: None IMPLANTABLE DEVICES: None DRAINS: None COMPLICATIONS: None PARTICIPATION IN SURGERY/PROCEDURE: I performed the procedure with assistance. No qualified resident/fellow was available. SIGNATURE: Raul Clifton MD PATIENT NAME: Asia Hawley DATE: October 13, 2017 TIME: 4:06 PM PAGER/CONTACT #: ANES POST Observed: 10/13/2017 Status: COMPLETED Source: [place] 3:51 PM [facility] REPOSITORY HNO ID: [id number] Author: Nasim Kelly Service: Anesthesiology Author Type: Anesthesiologist Type: Anesthesia PostOp Filed: 10/13/2017 3:51 PM Note Text: POST ANESTHESIA EVALUATION NOTE SERVICE DATE: 10/13/2017 SERVICE TIME: 3:51 PM : 1960 Vitals: 10/13/17 1215 10/13/17 1530 Temp: 36.5 ?C (97.7 ?F) 36.3 ?C (97.3 ?F) 10/13/17 1215 10/13/17 1530 BP: 139/72 102/55 10/13/17 1215 10/13/17 1530 10/13/17 1545 Pulse: (!) 58 (!) 59 (!) 57 10/13/17 1215 10/13/17 1530 10/13/17 1545 Resp: 16 16 16 10/13/17 1215 10/13/17 1530 10/13/17 1545 SpO2: 100% 98% 100% Validated Vital Signs: yes POST ANES STATUS: No apparent anesthetic complications. The patient is appropriately hydrated with stable respiratory and cardiovascular status. Patient has safe and adequate airway control. The patient has appropriate pain relief and no significant post operative nausea or vomiting. The patient has achieved baseline mental status. Further assessment by Anesthesia Service: None Other Remarks: SIGNATURE: Nasim Kelly MD PATIENT NAME: Asia Hawley DATE: October 13, 2017 TIME: 3:51 PM PAGER/CONTACT #: [phone] NURSING PROG Observed: 10/13/2017 Status: COMPLETED Source: [place] 1:28 PM [facility] REPOSITORY HNO ID: [id number] Author: Paula MannRn) JUAN Killian Service: (none) Author Type: Registered Nurse Type: Nursing Progress Note Filed: 10/13/2017 1:28 PM Note Text: Dr. Kelly at bedside for Right Axillary nerve block. RN at bedside, pt monitored throughout, BP 139/72 Pulse (!) 58 Temp 36.5 ?C (97.7 ?F) (Temporal Artery) Resp 16 Ht 165.1 cm (5' 5) Wt 85.7 kg (189 lb) LMP 01/07/2011 SpO2 100% BMI 31.45 kg/m? .Pt tolerated procedure without difficulty. Nursing Progress Note Patient Name: Asia Hawley [facility] Dimitris Elizabeth circulating. This note was completed by: Paula Killian RN ANES PREOP Observed: 10/13/2017 Status: COMPLETED Source: [place] 1:03 PM [facility] OTHER CAMPUS REPOSITORY [facility] ID: [id number] Author: Nasim Kelly Service: Anesthesiology Author Type: Anesthesiologist Type: Anesthesia PreOp Filed: 10/13/2017 1:04 PM Note Text: ANESTHESIOLOGY DAY OF SURGERY NOTE SERVICE DATE: 10/13/2017 SERVICE TIME: 1:03 PM : 1960 Procedure(s) (LRB): ARTHROPLASTY WRIST INTERPOSITION INTERCARPAL OR CARPOMETACARPAL (Right) Surgeon(s): Raul Clifton Estimated body mass index is 31.45 kg/m? as calculated from the following: Height as of this encounter: 165.1 cm (5' 5). Weight as of this encounter: 85.7 kg (189 lb). Most recent hematocrit and potassium results: Hematocrit 37.4 10/01/2017 Potassium 3.9 10/01/2017 ANES DOS/PREOP NOTE: Vitals: 10/13/17 1215 BP: 139/72 Pulse: (!) 58 Resp: 16 Temp: 36.5 ?C (97.7 ?F) TempSrc: Temporal Artery SpO2: 100% Weight: 85.7 kg (189 lb) Height: 165.1 cm (5' 5) ACTIVE PROBLEM LIST Hypothyroidism Diverticulosis Primary Osteoarthritis of First Carpometacarpal Joint of Right Hand Obesity, Class I, BMI 30-34.9 E66.9 Gerd (Gastroesophageal Reflux Disease) PAST MEDICAL HISTORY Diagnosis Date - Abnormal Papanicolaou smear of vagina and vaginal HPV - Diverticulitis of sigmoid colon 12/07/2009 ACUTE - Diverticulosis of colon (without mention of hemorrhage) - GERD (gastroesophageal reflux disease) 10/01/2017 - Hives - Intramural leiomyoma of uterus - Rectal bleed 09/05/14 - Unspecified hypothyroidism PAST SURGICAL HISTORY Procedure Laterality Date - CERVIX UTERI CAUTER CRYOCAUTER 1999 - COLONOSCOP W/ OR W/O [facility] SPEC 04/10/09 - COLONOSCOP W/ OR W/O [facility] SPEC 09/05/14 Repeat 2024 - COLPOSCOPY (VAGINOSCOPY) Multiple starting 1995 Colposcopy - LAPAROSCOPIC HEMICOLECTOMY 12/07/2009 diverticulitis - LIGATE FALLOPIAN TUBE Tubal ligation - PAST SURGICAL HISTORY OF 10/2008 T9-L1 fusion, Dr. Lemon - PAST SURGICAL HISTORY OF 10/24/2009 Removed T9-L1, 2 rods and 8 screws, Dr Lemon - REMOVAL GALLBLADDER Cholecystectomy FAMILY HISTORY Problem Relation Age of Onset - Hypertension Mother - Thyroid Mother - Heart Father - Hypertension Father - Heart Maternal Grandmother - Stroke Maternal Grandmother - Cancer Maternal Grandmother COLON - Cancer Paternal Grandmother STOMACH Social History: Social History Substance Use Topics - Smoking status: Never Smoker - Smokeless tobacco: Never Used Comment: No one in household smokes - Alcohol use Yes Comment: Rarely No current facility-administered medications on file prior to encounter. Current Outpatient Prescriptions on File Prior to Encounter: promethazine (PHENERGAN) 12.5 mg tablet Take 1 tablet by mouth every 6 hours as needed. levothyroxine (SYNTHROID) 75 mcg tablet TAKE 1 TABLET ONCE DAILY ON AN EMPTY STOMACH FOR THYROID multivitamins(DAILY MULTIVITAMIN TAB) Take one(1) tablet daily. ASPIRIN 81 MG TAB Take one(1) tablet daily. Current Facility-Administered Medications: lactated ringers infusion 5-30 mL/hr INTRAVENOUS CONTINUOUS Ghazal (Pa) Vetovitz Last Rate: 30 mL/hr at 10/13/17 1225 30 mL/hr at 10/13/17 1225 ceFAZolin iv piggyback 2 g in D5W (iso-osmotic) 100 mL (ANCEF) 2 g INTRAVENOUS Pre-Op Once Ghazal (Pa) Vetovitz Allergies: ALLERGIES Allergen Reactions - Environmental [Othe* ? what=congestion - Hay Fever [Seasonal* - Zyrtec [Cetirizine * Itching DOS EXAM: Adequate NPO Status: Yes Anesthetic Risks, Benefits, Alternatives, Personnel and Consent Discussed: Yes Patient agrees to proceed: Yes Previous Anesthesia: No history of adverse event Airway Assessment: MP 2; Neck ROM: Full ROM without neurologic symptoms; Airway Evaluation: No significant abnormalities Symptoms of Sleep Apnea: None Dentition: Teeth intact Additional Physical Exam: Lungs: Patient health status unchanged since recent history and physical. See history and physical for exam findings. Cardiac: Patient health status unchanged since recent history and physical. See history and physical for exam findings. Additional Pertinent Findings: N/A Blood Products: Not anticipated for this procedure Anesthetic Plan: General Anesthetic Monitoring: Standard ASA Monitors Pain Management Plan: Parenteral or Oral and Peripheral Nerve Block ASA Class: 2 Other Medical Problems: axillary block discussed Chronic Beta Ana medication administered within 24 hours: N/A I have interviewed and examined the patient. I have reviewed the medical record and/or the pre-anesthesia evaluation, pertinent labs, and test results. Significant changes in the patient's condition since the History and Physical, not otherwise documented in primary service progress notes: No This contains updated information obtained within 48 hours of Surgery/Procedure. SIGNATURE: Nasim Kelly MD PATIENT NAME: Asia Hawley DATE: October 13, 2017 TIME: 1:03 PM CSN: [id number] PT ED Observed: 10/13/2017 Status: COMPLETED Source: [place] 12:17 PM [facility] REPOSITORY HNO ID: [id number] Author: Paula Killian RN Service: (none) Author Type: Registered Nurse Type: Patient Education Filed: 10/13/2017 12:17 PM Note Text: PRE OP LEARNING ASSESSMENT PROCEDURE/SURGERY: SURGERY: Right wrist, tendon and thumb repair. READINESS TO LEARN COGNITIVE ABILITY: Alert and oriented MOTIVATION TO LEARN: Interested FAMILY SUPPORT: High - Very involved in pt care PATIENT LEARNS BEST BY: Verbal Instruction FACTORS AFFECTING LEARNING: None PHYSICAL LIMITATIONS AFFECTING LEARNING: Pain Electronically Signed By: Paula Killian RN In Department: [facility] SURGERY NURSING PROG Observed: 10/05/2017 Status: COMPLETED Source: [place] 8:04 AM [facility] REPOSITORY HNO ID: [id number] Author: Gwendolyn Ye RN Service: Nursing Author Type: Registered Nurse Type: Nursing Progress Note Filed: 10/05/2017 8:47 AM Note Text: PACC Nurse Progress Note History AND Physical: PACC Visit Date: 10/01/17 at [facility] Original HANDP Date: 10/01/17 ED visit Date: N/A Outside HANDP Scanned Date: N/A Labs Within Last 6 Months: CBC: Date 10/01/17 cbc/diff- wnl BMP/CMP: Date 10/01/17 cmp-Alt and AST elevated--provider sent Telephone encounter to Dr Smith-he noted ok to proceed--he will f/u after surgery -- Imaging Within Last 12 Months: N/A Cardiac Testing: N/A Last Menstrual Period: LMP Date: 2010 Postmenopausal >1yr: Yes, S/P Hysterectomy: No BMI 31.4 Risk Assessment: N/A Anesthesia Review: N/A Narrative: Message left for pt on her cell VM--that liver function tests were slightly elevated, sent info to Dr Smith ,ok to proceed with surgery and she needs to follow up with him after her surgery. Contact # left if pt had any questions. Pre-op Considerations: N/A Chart Check: COMPLETED Gwendolyn Ye RN October 05, 2017 8:04 AM CBC AND DIFFERENTIAL Collected: 10/01/2017 Status: F Source: [place] 2:52 PM [facility] REPOS[facility] TYPE CODE TESTS RESULT OUT OF REFERENCE UNITS RANGE LAB WBC 3.70-11.00 k/uL WBC 7.06 LAB RBC 3.90-5.20 m/uL RBC 4.25 LAB HGB 11.5-15.5 g/dL Hemoglobin 12.3 LAB HCT 36.0-46.0 % Hematocrit 37.4 LAB MCV 80.0-100.0 fL MCV 88.0 LAB MCH 26.0-34.0 pG MCH 28.9 LAB MCHC 30.5-36.0 g/dL MCHC 32.9 LAB RDWCV 11.5-15.0 % RDW-CV 12.5 LAB PLTCT 150-400 k/uL Platelet Count 326 LAB MPV 9.0-12.7 fL MPV 10.9 LAB ANEUT % Neut% 60.4 LAB AANEUT 1.45-7.50 k/uL Abs Neut 4.25 LAB ALYMP % Lymph% 30.3 LAB AALYMP 1.00-4.00 k/uL Abs Lymph 2.14 LAB AMONO % [place]% 9.2 LAB AAMONO <0.87 k/uL Abs [place] 0.65 LAB AEOS % Eosin% 0.0 LAB AAEOS <0.46 k/uL Abs Eosin <0.03 LAB ABASO % Baso% 0.1 LAB AABASO <0.11 k/uL Abs Baso <0.03 LAB AUNRBC 0 /100 WBC NRBCs 0.0 LAB ABNRBC <0.01 k/uL Absolute nRBC <0.01 LAB DTYP DTYPE Auto Diff Performed By: #### CBCDIF, CMP #### [facility] [address] [place], [place] [address] COMP METABOLIC PANEL Collected: 10/01/2017 Status: F Source: [place] 2:52 PM [facility] REPOSITORY TYPE CODE TESTS RESULT OUT OF REFERENCE UNITS RANGE LAB TP 6.3-8.0 g/dL Protein, Total 7.4 LAB ALB 3.9-4.9 g/dL Albumin 4.4 LAB CA 8.5-10.2 mg/dL Calcium, Total 9.4 LAB TBIL 0.2-1.3 mg/dL Bilirubin, Total 0.4 LAB ALKP 32-117 U/L Alkaline Phosphatase 92 LAB AST 13-35 U/L AST High 68 LAB GLU 74-99 mg/dL Glucose 78 Result Comment: The [place] [employer] (ADA) provides guidance for cutoff values for fasting glucose and random glucose. The ADA defines fasting as no caloric intake for at least 8 hours. Fas ting plasma glucose results between 100 to 125 mg/dL indicate increased risk for diabetes (prediabetes). Fasting plasma glucose results greater than or equal to 126 mg/dL meet the criteria for diagnosis of diabetes. In the absence of unequivocal hyperglycemia, results should be confirmed by repeat testing. In a patient with classic symptoms of hyperglycemia or hyperglycemic crisis, random plasma glucose results greater than or equal to 200 mg/dL meet the criteria for diagnosis of diabetes. Reference: Standards of Medical Care in Diabetes 2016, [place] [employer] Association. Diabetes Care. 2016.39(Suppl 1). LAB BUN 7-21 mg/dL BUN 12 LAB CRET 0.58-0.96 mg/dL Creatinine 0.80 LAB NA 136-144 mmol/L Sodium 142 LAB K 3.7-5.1 mmol/L Potassium 3.9 LAB CL 97-105 mmol/L Chloride 102 LAB CO2 22-30 mmol/L CO2 28 LAB AGAP 9-18 mmol/L Anion Gap 12 LAB ALT 7-38 U/L ALT High 106 LAB GFRAA eGFR- Amer. >60 LAB GFRNAA . eGFR-All Other Races >60 Result Comment: eGFR (Estimated GFR) Units of measure: mL/min/1.73 meters squared eGFR is derived from the reexpressed MDRD Study equation using the following parameters: serum creatinine, age, gender and race. The creatinine assay has been calibrated to be traceable to IDMS. An eGFR <60 mL/min/1.73m2 for >3 months is consistent with chronic kidney disease. Refer to KDOQI guidelines for clinical interpretation. In patients with unstable renal function, e.g. those with acute kidney injury, the eGFR may not accurately reflect actual GFR. Performed By: #### CBCDIF, CMP #### [facility] [address] [place], [place] [address] HISTORY PHYSICAL Observed: 10/01/2017 Status: COMPLETED Source: [place] 2:14 PM [facility] REPOSITORY O ID: [id number] Author: Fela Bonds (Pa) Service: (none) Author Type: Physician Cosmetology Educator Type: HANDP Filed: 10/01/2017 2:54 PM Note Text: HISTORY AND PHYSICAL EXAMINATION SERVICE DATE: 10/01/2017 SERVICE TIME: 2:15 PM PRIMARY CARE PHYSICIAN: Priyanka Smith MD REASON FOR VISIT: Asia Hwaley is a 57 year old female who is scheduled for right wrist arthroplasty at the request of Dr. Raul Clifton for consultation. My final recommendation will be communicated back to the requesting physician by way of shared medical record or letter. The patient has the following: ACTIVE PROBLEM LIST Hypothyroidism Diverticulosis Primary Osteoarthritis of First Carpometacarpal Joint of Right Hand Obesity, Class I, BMI 30-34.9 E66.9 Gerd (Gastroesophageal Reflux Disease) Subjective CHIEF COMPLAINT: right wrist pain HPI: Asia Hawley is a 57 year old female that presents c/o a >1 year history of right thumb pain that has worsened with time. Has fallen off horse in past and landed on right hand. Chronic wrist swelling. No previous surgery. Pain is intermitttent and described as aching in nature. Pain does not radiate. Aggravating factors include overuse. Alleviated by massage. Previous treatments include cortisone shots and medication. Scheduled for right wrist arthroplasty on 10/13. Denies recent illness, fever or chills. PAST MEDICAL HISTORY Diagnosis Date - Abnormal Papanicolaou smear of vagina and vaginal HPV - Diverticulitis of sigmoid colon 12/07/2009 ACUTE - Diverticulosis of colon (without mention of hemorrhage) - GERD (gastroesophageal reflux disease) 10/01/2017 - Hives - Intramural leiomyoma of uterus - Rectal bleed 09/05/14 - Unspecified hypothyroidism PAST SURGICAL HISTORY Procedure Laterality Date - CERVIX UTERI CAUTER CRYOCAUTER 1999 - COLONOSCOP W/ OR W/O [facility] SPEC 04/10/09 - COLONOSCOP W/ OR W/O [facility] SPEC 09/05/14 Repeat 2024 - COLPOSCOPY (VAGINOSCOPY) Multiple starting 1995 Colposcopy - LAPAROSCOPIC HEMICOLECTOMY 12/07/2009 diverticulitis - LIGATE FALLOPIAN TUBE Tubal ligation - PAST SURGICAL HISTORY OF 10/2008 T9-L1 fusion, Dr. Lemon - PAST SURGICAL HISTORY OF 10/24/2009 Removed T9-L1, 2 rods and 8 screws, Dr Lemon - REMOVAL GALLBLADDER Cholecystectomy FAMILY HISTORY Problem Relation Age of Onset - Hypertension Mother - Thyroid Mother - Heart Father - Hypertension Father - Heart Maternal Grandmother - Stroke Maternal Grandmother - Cancer Maternal Grandmother COLON - Cancer Paternal Grandmother STOMACH SOCIAL HISTORY: Social History Marital status: Spouse name: Years of education: Number of children: 2 Occupational History Occupation Employer Comment [employer] Social History Main Topics Smoking status: Never Smoker Smokeless tobacco: Never Used Comment: No one in household smokes Alcohol use: Yes Comment: Rarely Drug use: No Sexual activity: Yes Partners with: Male control/protection: Tubal Ligation Prior to Admission medications as of 10/01/17 1436 Medication Sig Last Dose Taking promethazine (PHENERGAN) 12.5 mg tablet Take 1 tablet by mouth every 6 hours as needed. Yes levothyroxine (SYNTHROID) 75 mcg tablet TAKE 1 TABLET ONCE DAILY ON AN EMPTY STOMACH FOR THYROID Yes multivitamins(DAILY MULTIVITAMIN TAB) Take one(1) tablet daily. Yes ASPIRIN 81 MG TAB Take one(1) tablet daily. Yes No medication comments found. ALLERGIES Allergen Reactions - Environmental [Othe* ? what=congestion - Hay Fever [Seasonal* - Zyrtec [Cetirizine * Itching REVIEW OF SYSTEMS: PAIN ASSESSMENT: General: No weight loss, malaise or fevers. Neuro: +headaches-improved since stopping arthritis meds. No history of TIAs, stroke, tremors, FILLER IN tumor, impaired sensorium, hemiplegia, paraplegia, quadriplegia. Respiratory: No history of current cough or dyspnea, or pneumonia in the past 6 weeks. No history of respiratory/pulmonary symptoms or problems. Cardiovascular: H/o RLE blood clot-does not remember being on AC-occurred after spine surgery 09/2008. Negative for chest pain, orthopnea, PND, dizziness, lightheadedness or syncope. Negative for heart murmur. Negative for palpitations or arrhythmia. Negative for LE edema. No W[place] or heart surgery. GI: +heartburn-has used Omeprazole until 2 weeks ago.. No PUD or liver disease. <2 ETOH drinks a day. 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 : Denies, Patient's last menstrual period was 01/07/2011. Endocrine: Hypothyroidism-takes Synthroid; No DM. No oral steroids in past 30 days. Hematology: see CV ROS; +easy bruising. Takes ASA 81mg daily. No bleeding or clotting d/o. Oncology: No history of CA metastasis, chemo within 30 days, or radiotherapy within 90 days. Has not lost 10% of body wt in 6 months. No history of oncological symptoms or problems. Psych: No history of psychiatric symptoms or problems. Musculoskeletal: h/o lumbar spine injury s/p fusion followed by removal of hardware.; +OA Skin: Negative for lesions, rash and itching. Objective PHYSICAL EXAM: VITALS: BP 126/71 Pulse 59 Temp 98.7 Ht 5' 5 (1.65m) Wt 189 lb (85.7kg) SpO2 98% LMP 01/07/2011 BMI 31.45 kg/(m2). General: Alert and oriented, No acute distress, Obese Skin: Normal color, no rash, no lesions. HEENT: EOM, pupils equal, round and reactive., No carotid bruits Cardiovascular: Normal S1 AND S2, no rubs, murmurs or gallops. No JVD. Pulse regular. Lungs: Normal breath sounds, no wheezes or crackles., No chest deformities or chest wall tenderness. Abdomen: Soft, non-tender, no rigidity., No masses or organomegaly. Extremities: No deformity, no edema or tenderness, no joint swelling or clubbing. Neurological: Normal cognition and motor skills. Gait normal. No weakness or sensory deficit. Pulses: Carotid and radial pulses normal +2. Diagnostic tests reviewed for today's visit: Lab Value Units Date High Low HB No results within date range. HCT No results within date range. WBC No results within date range. PLT No results within date range. NA No results within date range. K No results within date range. GLUC No results within date range. BUN No results within date range. CREAT No results within date range. PTSEC No results within date range. INR No results within date range. APTT No results within date range. ALT No results within date range. AST No results within date range. TBILI No results within date range. TSH No results within date range. Lab Value Units Date High Low HCGQT No results within date range. UHCG No results within date range. HCG, BODY* No results within date range. Lab Value Units Date High Low ABORHD No results within date range. ABSCREEN No results within date range. No results found for: HBA1C Most recent labs Most recent imaging All in Epic Assessment ASSESSMENT Patient has the following medical conditions: Obesity-BMI 31.45 Hypothyroid-treated GERD-currently no RX OA-right thumb pain H/o RLE DVT following spine surgery 2008 -pt does not remember AC treatment-no DVT on imaging in 2009 METS: Do heavy work around the house, such as scrubbing floors, lifting or moving heavy furniture (8.00 METs) Patient denies any chest pain or undue shortness of breath with the above physical activity. ASA Class: 2 ANESTHESIA FINDINGS: Intubation History: No history of difficult intubation Significant Anesthesia Considerations: None and Difficult IV/Vein Access: NO Airway Exam: General: Normal appearance Mallampati Score is CLASS I ULBT: Class I - Lower incisors can bite the upper lip above the [place]lando line Neck: Normal appearance and function, Distance from hyoid to mentum during neck extension is at least 3 finger breaths Mouth: Normal tongue size and Mouth opening greater than 2 finger breaths Dentition: Caps/crowns Airway History: No history of difficult intubation STOP BANG Score: Criteria: Age over 50 (57 year old) Score = 1 PLAN This patient is optimally prepared for surgery pending LABS. CONSULTS: Patient does not require consults for optimization at this time. The Following Tests/Procedures Have Been Initiated: Orders Placed This Encounter CBC + DIFF COMP METABOLIC PANEL Planned Anesthetic: Per anesthesia choice and block Instructions Given to Patient: Patient given verbal and written preop instructions and voices comprehension and compliance. SIGNATURE: Fela Bonds PA-C PATIENT NAME: Asia Hawley DATE: October 01, 2017 TIME: 2:15 PM PAGER/CONTACT #: [phone] Observed: 09/03/2017 Status: COMPLETED Source: [place] 10:22 PM [facility] REPOSITORY O ID: [id number] Author: Lala Henry Service: (none) Author Type: Physician Type: Progress Notes Filed: 09/04/2017 9:12 AM Note Text: 57 year old female referred by SELF for joint pain My final recommendations will be communicated back to the requesting physician and/or the patient by way of the shared medical record or a conventional letter via [place] mail. 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 No infections PAST MEDICAL HISTORY Diagnosis Date - Abnormal Papanicolaou smear of vagina and vaginal HPV - Diverticulitis of sigmoid colon 12/07/2009 ACUTE - Diverticulosis of colon (without mention of hemorrhage) - Hives - Intramural leiomyoma of uterus - Rectal bleed 09/05/14 - Unspecified hypothyroidism PAST SURGICAL HISTORY Procedure Laterality Date - CERVIX UTERI CAUTER CRYOCAUTER 1999 - COLONOSCOP W/ OR W/O [facility] SPEC 04/10/09 - COLONOSCOP W/ OR W/O [facility] SPEC 09/05/14 Repeat 2024 - COLPOSCOPY (VAGINOSCOPY) Multiple starting 1995 Colposcopy - LAPAROSCOPIC HEMICOLECTOMY 12/07/2009 diverticulitis - LIGATE FALLOPIAN TUBE Tubal ligation - PAST SURGICAL HISTORY OF 10/2008 T9-L1 fusion, Dr. Lemon - PAST SURGICAL HISTORY OF 10/24/2009 Removed T9-L1, 2 rods and 8 screws, Dr Lemon - REMOVAL GALLBLADDER Cholecystectomy nabumetone (RELAFEN) 500 mg tablet Take 1 tablet by mouth twice daily as needed. omeprazole (PRILOSEC) 20 mg capsule Take 1 capsule by mouth daily before breakfast. 1/2 hr before meal. methotrexate 2.5 mg tablet Take 5 tablets by mouth once each week. folic acid 1 mg tablet Take 2 mg by mouth twice daily. leucovorin (LEUCOVORIN) 15 mg tablet Take 1 tablet by mouth once each week. promethazine (PHENERGAN) 12.5 mg tablet Take 1 tablet by mouth every 6 hours as needed. levothyroxine (SYNTHROID) 75 mcg tablet TAKE 1 TABLET ONCE DAILY ON AN EMPTY STOMACH FOR THYROID multivitamins(DAILY MULTIVITAMIN TAB) Take one(1) tablet daily. ASPIRIN 81 MG TAB Take one(1) tablet daily. ALLERGIES Allergen Reactions - Hay Fever [Seasonal* - Zyrtec [Cetirizine * Itching - Environmental [Othe* ? what=congestion Social History Marital status: Spouse name: Years of education: Number of children: 2 Occupational History Occupation Employer Comment [employer] Social History Main Topics Smoking status: Never Smoker Smokeless status: Never Used Comment: No one in household smokes Alcohol use: Yes Comment: Rarely Drug use: No Sexual activity: Yes Partners with: Male control/protection: Tubal Ligation FAMILY HISTORY Problem Relation Age of Onset - Heart Maternal Grandmother - Heart Father - Stroke Maternal Grandmother - Cancer Paternal Grandmother STOMACH - Cancer Maternal Grandmother COLON - Hypertension Mother - Hypertension Father - Thyroid Mother CONSTITUTIONAL: Fatigue EYES: Pain, Dryness EAR, NOSE, MOUTH, THROAT: Dry mouth RESPIRATORY: Chronic cough GASTROINTESTINAL: Heartburn, Nausea, Abdominal pain MUSCULOSKELETAL: Joint pain, Joint swelling, Morning stiffness in joints, Muscle weakness, Back pain SKIN: Rashes, Sun sensitive rashes, Hair loss NEUROLOGIC: Headaches, Numbness or tingling, Memory loss HEMATOLOGIC/ LYMPHATIC: Anemia ALLERGIC/ IMMUNOLOGIC: Increased susceptibility to infection KNOWN MEDICAL CONDITIONS: Thyroid disease PROMIS? (Patient-Reported Outcomes Measurement Information System) is a set of person-centered measures that evaluates and monitors physical, social, and emotional health. It can be used with the general population and with individuals living with chronic conditions. PROMIS 10: PHYSICAL AND MENTAL HEALTH: RAPID 3: DISEASE ACTIVITY: Weighed Score Levels: 0 - 1: Near Remission 1.3 - 2.0: Low Severity 2.3 - 4.0: Moderate Severity 4.3 - 10.0: High Severity RAPID-3 Weighed Score 06/07/2017 RAPID 3 Weighed Score 5.9 Physical Exam: BP 141/82 Pulse 61 Wt 84.8 kg (187 lb) LMP 01/07/2011 BMI 31.12 kg/m2 Gen: Alert and oriented x 3. In no distress. HEENT: PERRL, EOMI. No inflammation seen. Scalp and temporal arteries are normal and non-tender. External examination and palpation of the ears and nose normal. Lips, teeth, and gums normal. Oropharynx and tongue normal. No lesions or exudate. No mass or asymmetry. Thyroid without mass or tenderness. Resp: Normal respiratory effort. Clear to auscultation. No wheezes CV: RRR without gallop, murmur, or rub. No bruits across chest or neck. Abdom: BS normal. No bruits, No tenderness, mass, or hepatosplenomegaly. Lymphatic: Normal exam of the neck, axillae and groin. Extrem: Normal and equal pulses in all 4 extremities. No edema. Warm Skin: No rash, thickening, nodules, discoloration. Neuro: Cranial nerves II-XII grossly intact. DTRs 2+ and symmetric in all extremities. Sensory exam normal. Musculoskeletal: Neck: Good flexion/extension/lateral rotation Shoulders: No swelling, no tenderness, good ROM Elbows: No swelling, no tenderness, no flexion contractures, no nodules, good ROM Wrists: No swelling, no tenderness, no limitation in flexion and extension MCP: No evidence of synovitis, IP and CMC pain PIP: No evidence of synovitis DIP: No evidence of synovitis Able to make full fist bilaterally Hips: Good ROM Knees: No effusion, no tenderness, good ROM Ankles: No swelling, no tenderness, good ROM Feet/Toes/ MTP: No evidence of synovitis Motor exam: Normal 5+/5+ muscle strength. Normal bulk and tone. Labs: reviewed Imaging: reviewed Impression Reportedly seroneg RA, suspect osteoarthritis (likely erosive or evolving into erosive) Will refer to ortho Plan: 1) Labs: as ordered 2) Imaging as ordered 3) Rx relafen 500 mg bid as needed, ortho for Sx 4) Follow up in 4-6 weeks Lala Henry MD Rheumatology and Immunology Pager: [phone] PROGRESS Observed: 08/05/2017 Status: COMPLETED Source: [place] 9:10 AM [facility] REPOSITORY HNO ID: [id number] Author: Raul Clifton Service: (none) Author Type: Physician Type: Progress Notes Filed: 08/05/2017 9:16 AM Note Text: Raul Clifton MD Department of Orthopaedics Orthopaedics [address] [address] Dept: [phone] Dept August 05, 2017 CHIEF COMPLAINT: New Patient (CMC arthritis right thumb REF: Lala Henry X-ray: 06/07/2017) HPI: Ms. Asia Hawley is a 57 year old female who presents with 8 out of 10 aching and stabbing and sharp pain in both thumbs but worse on the right. This has been bothering her for couple of years now. She previously saw a solids control technician and has had cortisone injections as well as bracing. She is thinking about stopping her current employment because the pain in the thumb is so much. She also has recently seen a new solids control technician and has been taking off most of her medication other than anti-inflammatories. She parenthetically describes some upper arm achiness and pain and weakness. ASSESSMENT: M18.11 Primary osteoarthritis of first carpometacarpal joint of right hand (primary encounter diagnosis) PLAN: we discussed multiple options including both nonoperative and operative care. The risks, benefits, alternatives and potential complications involving CMC arthroplasty with L RTI were reviewed and she would like to pursue surgery. FOLLOW UP INSTRUCTIONS: we'll schedule accordingly OBJECTIVE: Ms. Asia Hawley is a pleasant 57 year old in no apparent distress. Gen:BP 140/84 Pulse 64 Ht 5' 5.5 (1.66m) Wt 187 lb 12.8 oz (85.2kg) LMP 01/07/2011 BMI 30.77 kg/(m2). nl development, obese, no deformities ENT: Normocephalic, normal hearing, moist mucosa CV: Pulses:Radial= 2+ and symmetric, capillary refill < 2 secs, no peripheral edema/varicosities Skin: no rash, bruising or lesions. Good turgor. Psych: cooperative and appropriate, alert and oriented x 3, good mood and affect. Musculoskeletal: there is some mild swelling at the base of the joint of the thumb on the right hand. Tenderness to palpation. Pain and crepitance on grind testing. Neurovascular exam is intact. Left thumb is mildly similar with slightly less symptomatic exam. No hyperextension at either MCP joint. Positive palmaris tendon on both sides. IMAGING: IMPRESSION: DEGENERATIVE CHANGES BILATERALLY WITH MARKED CHANGES OF THE FIRST CMC JOINTS. Manager Statistical Programming: PSCB ? Transcribe Date/Time: Jun 07 2017 ?9:54A Dictated by : ISAK BALL MD This examination was interpreted and the report reviewed and electronically signed by: ISAK BALL MD on Jun 07 2017 ?9:56AM ?EST Results-Findings * * *Final Report* * * DATE OF EXAM: Jun 07 2017 ?9:25AM ? AOX ? 5556 ?- ?XR HAND 3V PA/LAT/OBL ELEAZAR ? / PROCEDURE REASON: multiple diagnoses ?? ? * * * * Physician Interpretation * * * * ?HISTORY: ?Bilateral primary osteoarthritis of knee Rheumatoid arthritis without rheumatoid factor, unspecified site ?. ?PAIN AND ARTHRITIS IN BOTH HANDS. TECHNIQUE: XR HAND 3V PA/LAT/OBL ELEAZAR ?? Laterality: ?BILATERAL ?? Number of different views (projections): 3 EACH COMPARISON: None RESULT: Moderate to marked first CMC joint degenerative arthritis bilaterally with small marginal osteophytes and joint space narrowing. ?Small osteophytes also noted in scattered DIP joints bilaterally without significant joint space narrowing. ?Joint spaces and alignment otherwise normal. ?No erosions. ?No evidence of a fracture. Normal soft tissues. Supporting Subjective Information Below: Past Medical History: PAST MEDICAL HISTORY Diagnosis Date - Abnormal Papanicolaou smear of vagina and vaginal HPV - Diverticulitis of sigmoid colon 12/07/2009 ACUTE - Diverticulosis of colon (without mention of hemorrhage) - Hives - Intramural leiomyoma of uterus - Rectal bleed 09/05/14 - Unspecified hypothyroidism Past Surgical History: PAST SURGICAL HISTORY Procedure Laterality Date - CERVIX UTERI CAUTER CRYOCAUTER 1999 - COLONOSCOP W/ OR W/O [facility] SPEC 04/10/09 - COLONOSCOP W/ OR W/O [facility] SPEC 09/05/14 Repeat 2024 - COLPOSCOPY (VAGINOSCOPY) Multiple starting 1995 Colposcopy - LAPAROSCOPIC HEMICOLECTOMY 12/07/2009 diverticulitis - LIGATE FALLOPIAN TUBE Tubal ligation - PAST SURGICAL HISTORY OF 10/2008 T9-L1 fusion, Dr. Lemon - PAST SURGICAL HISTORY OF 10/24/2009 Removed T9-L1, 2 rods and 8 screws, Dr Lemon - REMOVAL GALLBLADDER Cholecystectomy Family History: FAMILY HISTORY Problem Relation Age of Onset - Heart Maternal Grandmother - Heart Father - Stroke Maternal Grandmother - Cancer Paternal Grandmother STOMACH - Cancer Maternal Grandmother COLON - Hypertension Mother - Hypertension Father - Thyroid Mother Social History:Social History Marital status: Spouse name: Years of education: Number of children: 2 Occupational History Occupation Employer Comment [employer] Social History Main Topics Smoking status: Never Smoker Smokeless status: Never Used Comment: No one in household smokes Alcohol use: Yes Comment: Rarely Drug use: No Sexual activity: Yes Partners with: Male control/protection: Tubal Ligation Medications: Current Outpatient Prescriptions: omeprazole (PRILOSEC) 20 mg capsule Take 1 capsule by mouth daily before breakfast. 1/2 hr before meal. levothyroxine (SYNTHROID) 75 mcg tablet TAKE 1 TABLET ONCE DAILY ON AN EMPTY STOMACH FOR THYROID multivitamins(DAILY MULTIVITAMIN TAB) Take one(1) tablet daily. ASPIRIN 81 MG TAB Take one(1) tablet daily. nabumetone (RELAFEN) 500 mg tablet Take 1 tablet by mouth twice daily as needed. methotrexate 2.5 mg tablet Take 5 tablets by mouth once each week. folic acid 1 mg tablet Take 2 mg by mouth twice daily. leucovorin (LEUCOVORIN) 15 mg tablet Take 1 tablet by mouth once each week. promethazine (PHENERGAN) 12.5 mg tablet Take 1 tablet by mouth every 6 hours as needed. No current facility-administered medications for this visit. Allergies: Hay Fever [Seasonal Allergies]; Zyrtec [Cetirizine Hcl]; Environmental [Other] ROS: General (negative for fatigue, malaise, weight loss/gain) HEENT (negative for headache, earache, recent vision changes, sinus pain, sore throat) Respiratory (no recent shortness of breath, hemoptysis) CV (negative for chest tightness, palpitations) Musculoskeletal (see HPI) Psych (no depression, anxiety) REFERRING PHYSICIAN: Ms. Asia Hawley was referred to me for consultation by the following physician. This consultation note will be sent to the following physician by either mail or electronic medical record. Lala Henry MD [address] [facility] [address] Priyanka Smith MD [address] [facility] [address] This note was partially generated using [employer] voice recognition system, and there may be some incorrect words, spellings, and punctuation that were not noted in checking the note before saving. Raul Clifton MD CNOV Observed: 08/05/2017 Status: COMPLETED Source: [place] 8:40 AM [facility] REPOSITORY Office Visit (ORTHWS) ASIA HAWLEY ([id number]) 1960 F Date Time Provider Department 08/05/17 8:40 AM RAUL CLIFTON During your visit today, we recorded the following information about you: Pulse Blood pressure Weight Height 64/minute 140/84 85.2 kg 1.664 m Lacy Herrera Daksha Ma 08/05/2017 9:16 AM Signed AMB ROOMING INTAKE FLOWSHEET DATA Risk Screening Do you have concerns about personal safety or safety in the home?: No Pain Pain Score: 8/10 Pain Location: Hand-Right Description: Aching, Stabbing, Sharp Duration Amount of Time: (Couple of years) Frequency: Continuous Intervention: Medication Patient here today for evaluation of CMC arthritis of the right thumb. States she has had pain for a couple of years. 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 Was being treated for Rheumatoid arthritis, but was so tired from medication so she sought a 2nd opinion and was told that she needed to get her thumb fixed and may not need medications. Also has pain in the left shoulder with x-ray done in 07/2017 at [facility] facility and would like if you would look at them with her as she does not understand x-ray report. Raul Clifton MD 08/05/2017 9:16 AM Signed Raul Clifton MD Department of Orthopaedics Orthopaedics [address] [place] [address] Dept: [phone] Dept August 05, 2017 CHIEF COMPLAINT: New Patient (CMC arthritis right thumb REF: Apostrosalie Henry X-ray: 06/07/2017) HPI: Ms. Asia Hawley is a 57 year old female who presents with 8 out of 10 aching and stabbing and sharp pain in both thumbs but worse on the right. This has been bothering her for couple of years now. She previously saw a solids control technician and has had cortisone injections as well as bracing. She is thinking about stopping her current employment because the pain in the thumb is so much. She also has recently seen a new solids control technician and has been taking off most of her medication other than anti-inflammatories. She parenthetically describes some upper arm achiness and pain and weakness. ASSESSMENT: M18.11 Primary osteoarthritis of first carpometacarpal joint of right hand (primary encounter diagnosis) PLAN: we discussed multiple options including both nonoperative and operative care. The risks, benefits, alternatives and potential complications involving CMC arthroplasty with L RTI were reviewed and she would like to pursue surgery. FOLLOW UP INSTRUCTIONS: we'll schedule accordingly OBJECTIVE: Ms. Asia Hawley is a pleasant 57 year old in no apparent distress. Gen:BP 140/84 Pulse 64 Ht 5' 5.5ANDquot; (1.66m) Wt 187 lb 12.8 oz (85.2kg) LMP 01/07/2011 BMI 30.77 kg/(m2). nl development, obese, no deformities ENT: Normocephalic, normal hearing, moist mucosa CV: Pulses:Radial= 2+ and symmetric, capillary refill ANDlt; 2 secs, no peripheral edema/varicosities Skin: no rash, bruising or lesions. Good turgor. Psych: cooperative and appropriate, alert and oriented x 3, good mood and affect. Musculoskeletal: there is some mild swelling at the base of the joint of the thumb on the right hand. Tenderness to palpation. Pain and crepitance on grind testing. Neurovascular exam is intact. Left thumb is mildly similar with slightly less symptomatic exam. No hyperextension at either MCP joint. Positive palmaris tendon on both sides. IMAGING: IMPRESSION: DEGENERATIVE CHANGES BILATERALLY WITH MARKED CHANGES OF THE FIRST CMC JOINTS. Manager Statistical Programming: JUAN ? Transcribe Date/Time: Jun 07 2017 ?9:54A Dictated by : ISAK BALL MD This examination was interpreted and the report reviewed and electronically signed by: ISAK BALL MD on Jun 07 2017 ?9:56AM ?EST Results-Findings * * *Final Report* * * DATE OF EXAM: Jun 07 2017 ?9:25AM ? AOX ? 5556 ?- ?XR HAND 3V PA/LAT/OBL ELEAZAR ? / PROCEDURE REASON: multiple diagnoses ?? ? * * * * Physician Interpretation * * * * ?HISTORY: ?Bilateral primary osteoarthritis of knee Rheumatoid arthritis without rheumatoid factor, unspecified site ?. ?PAIN AND ARTHRITIS IN BOTH HANDS. TECHNIQUE: XR HAND 3V PA/LAT/OBL ELEAZAR ?? Laterality: ?BILATERAL ?? Number of different views (projections): 3 EACH COMPARISON: None RESULT: Moderate to marked first CMC joint degenerative arthritis bilaterally with small marginal osteophytes and joint space narrowing. ?Small osteophytes also noted in scattered DIP joints bilaterally without significant joint space narrowing. ?Joint spaces and alignment otherwise normal. ?No erosions. ?No evidence of a fracture. Normal soft tissues. Supporting Subjective Information Below: Past Medical History: PAST MEDICAL HISTORY Diagnosis Date - Abnormal Papanicolaou smear of vagina and vaginal HPV - Diverticulitis of sigmoid colon 12/07/2009 ACUTE - Diverticulosis of colon (without mention of hemorrhage) - Hives - Intramural leiomyoma of uterus - Rectal bleed 09/05/14 - Unspecified hypothyroidism Past Surgical History: PAST SURGICAL HISTORY Procedure Laterality Date - CERVIX UTERI CAUTER CRYOCAUTER 1999 - COLONOSCOP W/ OR W/O [facility] SPEC 04/10/09 - COLONOSCOP W/ OR W/O [facility] SPEC 09/05/14 Repeat 2024 - COLPOSCOPY (VAGINOSCOPY) Multiple starting 1995 Colposcopy - LAPAROSCOPIC HEMICOLECTOMY 12/07/2009 diverticulitis - LIGATE FALLOPIAN TUBE Tubal ligation - PAST SURGICAL HISTORY OF 10/2008 T9-L1 fusion, Dr. Lemon - PAST SURGICAL HISTORY OF 10/24/2009 Removed T9-L1, 2 rods and 8 screws, Dr Lemon - REMOVAL GALLBLADDER Cholecystectomy Family History: FAMILY HISTORY Problem Relation Age of Onset - Heart Maternal Grandmother - Heart Father - Stroke Maternal Grandmother - Cancer Paternal Grandmother STOMACH - Cancer Maternal Grandmother COLON - Hypertension Mother - Hypertension Father - Thyroid Mother Social History:Social History Marital status: Spouse name: Years of education: Number of children: 2 Occupational History Occupation Employer Comment [employer] Social History Main Topics Smoking status: Never Smoker Smokeless status: Never Used Comment: No one in household smokes Alcohol use: Yes Comment: Rarely Drug use: No Sexual activity: Yes Partners with: Male control/protection: Tubal Ligation Medications: Current Outpatient Prescriptions: omeprazole (PRILOSEC) 20 mg capsule Take 1 capsule by mouth daily before breakfast. 1/2 hr before meal. levothyroxine (SYNTHROID) 75 mcg tablet TAKE 1 TABLET ONCE DAILY ON AN EMPTY STOMACH FOR THYROID multivitamins(DAILY MULTIVITAMIN TAB) Take one(1) tablet daily. ASPIRIN 81 MG TAB Take one(1) tablet daily. nabumetone (RELAFEN) 500 mg tablet Take 1 tablet by mouth twice daily as needed. methotrexate 2.5 mg tablet Take 5 tablets by mouth once each week. folic acid 1 mg tablet Take 2 mg by mouth twice daily. leucovorin (LEUCOVORIN) 15 mg tablet Take 1 tablet by mouth once each week. promethazine (PHENERGAN) 12.5 mg tablet Take 1 tablet by mouth every 6 hours as needed. No current facility-administered medications for this visit. Allergies: Hay Fever [Seasonal Allergies]; Zyrtec [Cetirizine Hcl]; Environmental [Other] ROS: General (negative for fatigue, malaise, weight loss/gain) HEENT (negative for headache, earache, recent vision changes, sinus pain, sore throat) Respiratory (no recent shortness of breath, hemoptysis) CV (negative for chest tightness, palpitations) Musculoskeletal (see HPI) Psych (no depression, anxiety) REFERRING PHYSICIAN: Ms. Asia Hawley was referred to me for consultation by the following physician. This consultation note will be sent to the following physician by either mail or electronic medical record. Lala Henry MD [address] [place] [address] Priyanka Smith MD [address] [facility] [id number] This note was partially generated using [employer] voice recognition system, and there may be some incorrect words, spellings, and punctuation that were not noted in checking the note before saving. Raul Clifton MD Referring Provider: LALA HENRY [[id number]] Allergies As of Date: 08/05/2017 Noted Allergy Reaction HAY FEVER (SEASONAL ALLERGIES) 08/13/2009 ZYRTEC (CETIRIZINE HCL) 08/06/2014 9 - Itching environmental [Other] 12/28/2006 Comments: ? what=congestion Date Reviewed: 08/05/2017 Reviewed by: Lacy Crooks Ma - Fully Assessed Reason for Visit: New Patient [172] Cmt: CMC arthritis right thumb REF: Lala Henry X-ray: 06/07/2017 Primary Visit Diagnosis:Primary osteoarthritis of first carpometacarpal joint of right hand [M18.11] Prescriptions as of 08/05/2017 Sig: OMEPRAZOLE 20 MG CAPSULE,CLARK* Take 1 capsule by mouth daily* LEVOTHYROXINE 75 MCG TABLET TAKE 1 TABLET ONCE DAILY ON A* * DAILY MULTIVITAMIN TABLET Take one(1) tablet daily. * ASPIRIN 81 MG TABLET Take one(1) tablet daily. NABUMETONE 500 MG TABLET Take 1 tablet by mouth twice * METHOTREXATE SODIUM 2.5 MG TA* Take 5 tablets by mouth once * FOLIC ACID 1 MG TABLET Take 2 mg by mouth twice osvaldo* LEUCOVORIN CALCIUM 15 MG TABL* Take 1 tablet by mouth once e* PROMETHAZINE 12.5 MG TABLET Take 1 tablet by mouth every * Medication notes this encounter METHOTREXATE SODIUM 2.5 MG TABLET >> Lacy Crooks Ma 08/05/2017 8:28 AM >> LACY CROOKS MA [facility] Aug 05, 2017 8:28 AM Not currently taking. LEUCOVORIN CALCIUM 15 MG TABLET >> Lacy Crooks Ma 08/05/2017 8:27 AM >> LACY CROOKS MA [facility] Aug 05, 2017 8:27 AM Not taking. Problem List As Of Date 08/05/2017 Noted Resolved HYPOTHYROIDISM NOS [E03.9] Abnormal Papanicolaou Smear of Vagina and Vagin* 02/06/2010 Dyspareunia [ZRK8894] INVALID FOR*02/06/2010 Fx Sacrum/Coccyx-Closed [S32.10XA, S32.2XXA] INVALID FOR*02/06/2010 Fx Dorsal Vertebra-Closed [S22.009A] INVALID FOR*02/06/2010 Diverticulosis [K57.90] INVALID FOR* Calcaneal spur [M77.30] INVALID FOR* Hives [L50.9] Chronic urticaria [L50.8] INVALID FOR* Open wound(s) (multiple) of unspecified site(s)*INVALID FOR* Encounter Status:Closed by RAUL CLIFTON MD on 08/05/17 PROGRESS Observed: 08/05/2017 Status: COMPLETED Source: [place] 8:29 AM [facility] REPOSITORY HNO ID: [id number] Author: Lacy Crooks Ma Service: (none) Author Type: (none) Type: Progress Notes Filed: 08/05/2017 9:16 AM Note Text: AMB ROOMING INTAKE FLOWSHEET DATA Risk Screening Do you have concerns about personal safety or safety in the home?: No Pain Pain Score: 8/10 Pain Location: Hand-Right Description: Aching, Stabbing, Sharp Duration Amount of Time: (Couple of years) Frequency: Continuous Intervention: Medication Patient here today for evaluation of CMC arthritis of the right thumb. States she has had pain for a couple of years. 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 Was being treated for Rheumatoid arthritis, but was so tired from medication so she sought a 2nd opinion and was told that she needed to get her thumb fixed and may not need medications. Also has pain in the left shoulder with x-ray done in 07/2017 at [facility] facility and would like if you would look at them with her as she does not understand x-ray report. HOSP Observed: 08/05/2017 Status: COMPLETED Source: [place] 12:00 AM [facility] OTHER CAMPUS REPOSITORY Patient:Asia Hawley MRN: <[id number]> Height:5' 5(1.651 m) Weight:189 lb (85.73 kg) Outpatient Medications as of 10/13/17: promethazine (PHENERGAN) 12.5 mg tablet levothyroxine (SYNTHROID) 75 mcg tablet multivitamins(DAILY MULTIVITAMIN TAB) ASPIRIN 81 MG TAB Admission/Clinic Administered Medications as of 10/13/17: lactated ringers infusion ceFAZolin iv piggyback 2 g in D5W (iso-osmotic) 100 mL (ANCEF) Problem List: Hypothyroidism [E03.9] Diverticulosis [K57.90] Primary osteoarthritis of first carpometacarpal joint of right hand [M18.11] Obesity, Class I, BMI 30-34.9 E66.9 [E66.9] GERD (gastroesophageal reflux disease) [K21.9] Allergies: environmental [Other] Hay Fever [Seasonal Allergies] Zyrtec [Cetirizine Hcl] Date Verified: 10/13/17 Lab Values Lab Value Units Date High Low POTA* 3.9 mmol/L 10/01/2017 5.1 3.7 TRUDY* 37.4 % 10/01/2017 46.0 36.0 Progress Notes (PRE ANES RAFAEL): Fela Bonds PA-C 10/04/2017 12:05 PM Signed Vinny Smith, Pt is scheduled for wrist surgery on 10/[address] Clifton. Labs at time of [facility] appt revealed elevated LFTs. Thanks, Fela Bonds PA-C Electronically Signed Priyanka Smiht MD 10/04/2017 3:37 PM Signed Noted; OK to proceed with planned surgery; just have her follow up with me after the surgery. Thanks. MD Gwendolyn Graff RN, RN 10/05/2017 8:49 AM Signed Message left on pt cell VM of elevated liver function test, Dr Smith notified , ok to proceed with surgery and needs to follow up with him after surgery. My contact # left in case pt has any questions. Gwendolyn Ye RN CNPN Observed: 08/05/2017 Status: COMPLETED Source: [place] 12:00 AM [facility] REPOSITORY Telephone (ORTHWS) CHANDANASIA GRAJEDA ([id number]) 1960 F Date Time Provider Department 08/05/17 RAUL CLIFTON During your visit today, we recorded the following information about you: Lacy Crooks Ma 08/05/2017 9:18 AM Signed Please schedule patient for right CMC arthroplasty with ligament reconstruction and tendon interposition at [facility] on 10/13/2017. Please schedule post op appointments in [place] mid morning or early afternoon. Laine Osmar [facility] 08/05/2017 4:02 PM Signed Surgical request completed, post ops made and mailed. Please place an order for OT to follow the 2nd post op visit. Ghazal Osborn PA-C 08/06/2017 2:19 PM Signed Order for OT placed. Lacy Crooks Ma 08/10/2017 8:47 AM Signed Please schedule patient for OT to follow appointment with Dr. Clifton in [place] on 11/23/2017. Anika MARIN 08/10/2017 2:06 PM Signed Scheduled patient at 10:15 am with Monika on 11/23/17. Lacy Crooks Ma 08/10/2017 2:32 PM Signed Updated post op appointments have been mailed to patient. Surgery has been scheduled as requested. Allergies As of Date: 08/05/2017 Noted Allergy Reaction HAY FEVER (SEASONAL ALLERGIES) 08/13/2009 ZYRTEC (CETIRIZINE HCL) 08/06/2014 9 - Itching environmental [Other] 12/28/2006 Comments: ? what=congestion Date Reviewed: 08/05/2017 Reviewed by: Lacy Crooks Ma - Fully Assessed Reason for Visit: Schedule Surgery [1330] Primary Visit Diagnosis:Primary osteoarthritis of first carpometacarpal joint of right hand [M18.11] Order(s):CONSULT TO HYDROGRAPHICAL TECHNICAL OFFICER [19990525] Order #: [id number]: 1 Prescriptions as of 08/05/2017 Sig: NABUMETONE 500 MG TABLET Take 1 tablet by mouth twice * OMEPRAZOLE 20 MG CAPSULE,CLARK* Take 1 capsule by mouth daily* METHOTREXATE SODIUM 2.5 MG TA* Take 5 tablets by mouth once * FOLIC ACID 1 MG TABLET Take 2 mg by mouth twice osvaldo* LEUCOVORIN CALCIUM 15 MG TABL* Take 1 tablet by mouth once e* PROMETHAZINE 12.5 MG TABLET Take 1 tablet by mouth every * LEVOTHYROXINE 75 MCG TABLET TAKE 1 TABLET ONCE DAILY ON A* * DAILY MULTIVITAMIN TABLET Take one(1) tablet daily. * ASPIRIN 81 MG TABLET Take one(1) tablet daily. Problem List As Of Date 08/05/2017 Noted Resolved HYPOTHYROIDISM NOS [E03.9] Abnormal Papanicolaou Smear of Vagina and Vagin* 02/06/2010 Dyspareunia [QOF1882] INVALID FOR*02/06/2010 Fx Sacrum/Coccyx-Closed [S32.10XA, S32.2XXA] INVALID FOR*02/06/2010 Fx Dorsal Vertebra-Closed [S22.009A] INVALID FOR*02/06/2010 Diverticulosis [K57.90] INVALID FOR* Calcaneal spur [M77.30] INVALID FOR* Hives [L50.9] Chronic urticaria [L50.8] INVALID FOR* Open wound(s) (multiple) of unspecified site(s)*INVALID FOR* Primary osteoarthritis of first carpometacarpal*INVALID FOR* More... Encounter Status:Closed by GHAZAL OSBORN PA-C on 08/06/17 PROGRESS Observed: 07/29/2017 Status: COMPLETED Source: [place] 12:13 PM [facility] REPOSITORY HNO ID: [id number] Author: Ash Lopes (Rt) Service: (none) Author Type: Blocker Polishing Type: Progress Notes Filed: 07/29/2017 12:14 PM Note Text: Radiology Service Progress Note PATIENT NAME: Asia Hawley DATE OF SERVICE: July 29, 2017 TIME: 12:13 PM PATIENT IDENTITY VERIFICATION COMPLETED USING TWO (2) METHODS: Patient confirmed name verbally and Date of . PATIENT GENDER DATA: Female. status: : No status: NO. PATIENT RELEVANT IMPLANT DATA REVIEWED: Not Applicable RADIOLOGY DEPARTMENT: General X-ray: Exam(s) Completed: Upper Extremity X-Ray(s): Shoulder, AP / TRUE AP bilateral : PERIPHERAL IV DATA: Not applicable SIGNED BY: RT Prashant July 29, 2017 12:13 PM XR SHOULDER 2V Observed: 07/29/2017 Status: F Source: [place] AP/TRUE AP RT 12:13 PM [facility] REPOSITORY * * *Final Report* * * DATE OF EXAM: Jul 29 2017 12:13PM AOX 5255 - XR SHOULDER 2V AP/TRUE AP RT / PROCEDURE REASON: Other specific arthropathies, not elsewhere classified, left shoulder * * * * Physician Interpretation * * * * HISTORY: Other specific arthropathies, not elsewhere classified, left shoulder . pain/stiffness/tingling sensations in hands. TECHNIQUE: XR SHOULDER 2V AP/TRUE AP LT, XR SHOULDER 2V AP/TRUE AP RT Laterality: BILATERAL Number of different views (projections): 2 each COMPARISON: None RESULT: Joint spaces and alignment normal. No evidence of a fracture. Normal soft tissues. No other significant abnormality. IMPRESSION: NORMAL Manager Statistical Programming: JUAN Transcribe Date/Time: Jul 29 2017 1:38P Dictated by : ISAK BALL MD This examination was interpreted and the report reviewed and electronically signed by: ISAK BALL MD on Jul 29 2017 1:40PM EST [id number] XR SHOULDER 2V Observed: 07/29/2017 Status: F Source: [place] AP/TRUE AP LT 12:13 PM [facility] REPOSITORY * * *Final Report* * * DATE OF EXAM: Jul 29 2017 12:13PM AOX 5254 - XR SHOULDER 2V AP/TRUE AP LT / PROCEDURE REASON: Other specific arthropathies, not elsewhere classified, left shoulder * * * * Physician Interpretation * * * * HISTORY: Other specific arthropathies, not elsewhere classified, left shoulder . pain/stiffness/tingling sensations in hands. TECHNIQUE: XR SHOULDER 2V AP/TRUE AP LT, XR SHOULDER 2V AP/TRUE AP RT Laterality: BILATERAL Number of different views (projections): 2 each COMPARISON: None RESULT: Joint spaces and alignment normal. No evidence of a fracture. Normal soft tissues. No other significant abnormality. IMPRESSION: NORMAL Manager Statistical Programming: JUAN Transcribe Date/Time: Jul 29 2017 1:38P Dictated by : ISAK BALL MD This examination was interpreted and the report reviewed and electronically signed by: ISAK BALL MD on Jul 29 2017 1:40PM EST [id number] CNOV Observed: 07/29/2017 Status: COMPLETED Source: [place] 11:00 AM [facility] REPOSITORY Office Visit (RHARMN) ASIA HAWLEY ([id number]) 1960 F Date Time Provider Department 07/29/17 11:00 AM LALA HENRY During your visit today, we recorded the following information about you: Pulse Blood pressure Weight 61/minute 141/82 84.8 kg Lala Henry MD 09/04/2017 9:12 AM Signed 57 year old female referred by SELF for joint pain My final recommendations will be communicated back to the requesting physician and/or the patient by way of the shared medical record or a conventional letter via [place] mail. 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 No infections PAST MEDICAL HISTORY Diagnosis Date - Abnormal Papanicolaou smear of vagina and vaginal HPV - Diverticulitis of sigmoid colon 12/07/2009 ACUTE - Diverticulosis of colon (without mention of hemorrhage) - Hives - Intramural leiomyoma of uterus - Rectal bleed 09/05/14 - Unspecified hypothyroidism PAST SURGICAL HISTORY Procedure Laterality Date - CERVIX UTERI CAUTER CRYOCAUTER 1999 - COLONOSCOP W/ OR W/O [facility] SPEC 04/10/09 - COLONOSCOP W/ OR W/O [facility] SPEC 09/05/14 Repeat 2024 - COLPOSCOPY (VAGINOSCOPY) Multiple starting 1995 Colposcopy - LAPAROSCOPIC HEMICOLECTOMY 12/07/2009 diverticulitis - LIGATE FALLOPIAN TUBE Tubal ligation - PAST SURGICAL HISTORY OF 10/2008 T9-L1 fusion, Dr. Lemon - PAST SURGICAL HISTORY OF 10/24/2009 Removed T9-L1, 2 rods and 8 screws, Dr Lemon - REMOVAL GALLBLADDER Cholecystectomy nabumetone (RELAFEN) 500 mg tablet Take 1 tablet by mouth twice daily as needed. omeprazole (PRILOSEC) 20 mg capsule Take 1 capsule by mouth daily before breakfast. 1/2 hr before meal. methotrexate 2.5 mg tablet Take 5 tablets by mouth once each week. folic acid 1 mg tablet Take 2 mg by mouth twice daily. leucovorin (LEUCOVORIN) 15 mg tablet Take 1 tablet by mouth once each week. promethazine (PHENERGAN) 12.5 mg tablet Take 1 tablet by mouth every 6 hours as needed. levothyroxine (SYNTHROID) 75 mcg tablet TAKE 1 TABLET ONCE DAILY ON AN EMPTY STOMACH FOR THYROID multivitamins(DAILY MULTIVITAMIN TAB) Take one(1) tablet daily. ASPIRIN 81 MG TAB Take one(1) tablet daily. ALLERGIES Allergen Reactions - Hay Fever [Seasonal* - Zyrtec [Cetirizine * Itching - Environmental [Othe* ? what=congestion Social History Marital status: Spouse name: Years of education: Number of children: 2 Occupational History Occupation Employer Comment [employer] Social History Main Topics Smoking status: Never Smoker Smokeless status: Never Used Comment: No one in household smokes Alcohol use: Yes Comment: Rarely Drug use: No Sexual activity: Yes Partners with: Male control/protection: Tubal Ligation FAMILY HISTORY Problem Relation Age of Onset - Heart Maternal Grandmother - Heart Father - Stroke Maternal Grandmother - Cancer Paternal Grandmother STOMACH - Cancer Maternal Grandmother COLON - Hypertension Mother - Hypertension Father - Thyroid Mother CONSTITUTIONAL: Fatigue EYES: Pain, Dryness EAR, NOSE, MOUTH, THROAT: Dry mouth RESPIRATORY: Chronic cough GASTROINTESTINAL: Heartburn, Nausea, Abdominal pain MUSCULOSKELETAL: Joint pain, Joint swelling, Morning stiffness in joints, Muscle weakness, Back pain SKIN: Rashes, Sun sensitive rashes, Hair loss NEUROLOGIC: Headaches, Numbness or tingling, Memory loss HEMATOLOGIC/ LYMPHATIC: Anemia ALLERGIC/ IMMUNOLOGIC: Increased susceptibility to infection KNOWN MEDICAL CONDITIONS: Thyroid disease PROMIS? (Patient-Reported Outcomes Measurement Information System) is a set of person-centered measures that evaluates and monitors physical, social, and emotional health. It can be used with the general population and with individuals living with chronic conditions. PROMIS 10: PHYSICAL AND MENTAL HEALTH: RAPID 3: DISEASE ACTIVITY: Weighed Score Levels: 0 - 1: Near Remission 1.3 - 2.0: Low Severity 2.3 - 4.0: Moderate Severity 4.3 - 10.0: High Severity RAPID-3 Weighed Score 06/07/2017 RAPID 3 Weighed Score 5.9 Physical Exam: BP 141/82 Pulse 61 Wt 84.8 kg (187 lb) LMP 01/07/2011 BMI 31.12 kg/m2 Gen: Alert and oriented x 3. In no distress. HEENT: PERRL, EOMI. No inflammation seen. Scalp and temporal arteries are normal and non-tender. External examination and palpation of the ears and nose normal. Lips, teeth, and gums normal. Oropharynx and tongue normal. No lesions or exudate. No mass or asymmetry. Thyroid without mass or tenderness. Resp: Normal respiratory effort. Clear to auscultation. No wheezes CV: RRR without gallop, murmur, or rub. No bruits across chest or neck. Abdom: BS normal. No bruits, No tenderness, mass, or hepatosplenomegaly. Lymphatic: Normal exam of the neck, axillae and groin. Extrem: Normal and equal pulses in all 4 extremities. No edema. Warm Skin: No rash, thickening, nodules, discoloration. Neuro: Cranial nerves II-XII grossly intact. DTRs 2+ and symmetric in all extremities. Sensory exam normal. Musculoskeletal: Neck: Good flexion/extension/lateral rotation Shoulders: No swelling, no tenderness, good ROM Elbows: No swelling, no tenderness, no flexion contractures, no nodules, good ROM Wrists: No swelling, no tenderness, no limitation in flexion and extension MCP: No evidence of synovitis, IP and CMC pain PIP: No evidence of synovitis DIP: No evidence of synovitis Able to make full fist bilaterally Hips: Good ROM Knees: No effusion, no tenderness, good ROM Ankles: No swelling, no tenderness, good ROM Feet/Toes/ MTP: No evidence of synovitis Motor exam: Normal 5+/5+ muscle strength. Normal bulk and tone. Labs: reviewed Imaging: reviewed Impression Reportedly seroneg RA, suspect osteoarthritis (likely erosive or evolving into erosive) Will refer to ortho Plan: 1) Labs: as ordered 2) Imaging as ordered 3) Rx relafen 500 mg bid as needed, ortho for Sx 4) Follow up in 4-6 weeks Lala Henry MD Rheumatology and Immunology Pager: [phone] Referring Provider: SELF [[id number]] Allergies As of Date: 07/29/2017 Noted Allergy Reaction HAY FEVER (SEASONAL ALLERGIES) 08/13/2009 ZYRTEC (CETIRIZINE HCL) 08/06/2014 9 - Itching environmental [Other] 12/28/2006 Comments: ? what=congestion Date Reviewed: 07/29/2017 Reviewed by: Cristina Peters Ma - Fully Assessed Primary Visit Diagnosis:Generalized osteoarthrosis [M15.9] Other Visit Diagnoses:Rotator cuff arthropathy of left shoulder [M12.812] Arthritis of carpometacarpal (CMC) joints of both thumbs [M18.0] Obesity, Class I, BMI 30-34.9 [E66.9] Order(s):CONSULT TO PHYSICAL THERAPY [9032] Order #: [id number]: 1 XR SHOULDER LIMITED 2V AP/TRUE AP LT [[id number]] Order #: [id number] FUTURE XR SHOULDER [id number] AP/TRUE AP RT [[id number]] Order #: [id number] FUTURE CONSULT TO ORTHOPAEDIC SURGERY [19990617] Order #: [id number]: 1 Prescriptions as of 07/29/2017 Sig: NABUMETONE 500 MG TABLET Take 1 tablet by mouth twice * OMEPRAZOLE 20 MG CAPSULE,CLARK* Take 1 capsule by mouth daily* METHOTREXATE SODIUM 2.5 MG TA* Take 5 tablets by mouth once * FOLIC ACID 1 MG TABLET Take 2 mg by mouth twice osvaldo* LEUCOVORIN CALCIUM 15 MG TABL* Take 1 tablet by mouth once e* PROMETHAZINE 12.5 MG TABLET Take 1 tablet by mouth every * LEVOTHYROXINE 75 MCG TABLET TAKE 1 TABLET ONCE DAILY ON A* * DAILY MULTIVITAMIN TABLET Take one(1) tablet daily. * ASPIRIN 81 MG TABLET Take one(1) tablet daily. Problem List As Of Date 07/29/2017 Noted Resolved HYPOTHYROIDISM NOS [E03.9] Abnormal Papanicolaou Smear of Vagina and Vagin* 02/06/2010 Dyspareunia [FVP0467] INVALID FOR*02/06/2010 Fx Sacrum/Coccyx-Closed [S32.10XA, S32.2XXA] INVALID FOR*02/06/2010 Fx Dorsal Vertebra-Closed [S22.009A] INVALID FOR*02/06/2010 Diverticulosis [K57.90] INVALID FOR* Calcaneal spur [M77.30] INVALID FOR* Hives [L50.9] Chronic urticaria [L50.8] INVALID FOR* Open wound(s) (multiple) of unspecified site(s)*INVALID FOR* Encounter Status:Closed by LALA HENRY MD on 09/04/17 ALLERGIES ALLERGIES DATE TYPE / CODE NAME / CODE REACTION SEVERITY SOURCE 06/01/2018 Drug cetirizine/F006 Unknown Unknown [place] Allergy/[id number]( [id number](RXNORM) [facility]) Hospital Repository 08/06/2014 DRUG CETIRIZINE HCL ITCHING [place] INGREDI/[id number]([facility] Other NOMED CT) [place] Repository 08/13/2009 [id number] Other [place] Repository 12/28/2006 Miscellaneous OTHER [place] Allergy/[id number]([facility] NOMED CT) [place] Repository ENCOUNTERS ENCOUNTERS ADMIT/DISCHARGE ACCOUNT ADMITTING ENCOUNTER LOCATION SOURCE NUMBER CLASS 06/10/2018/06/11/19 [id number] Lana Lacy Inpatient [place] [address] [place] Encounter [facility] ing:PCURoom: Repository [id number]: 1 06/10/2018 [id number] Lana Lacy Ambulatory BMSBuilding:[place] Repository 06/10/2018 [id number] Lana Lacy Ambulatory BMSBuilding:[place] Repository 06/08/2018 [id number] Lana Lacy Ambulatory BMSBuilding:[place] Repository 06/08/2018 [id number] Lana Lacy Ambulatory BMSBuilding:[place] Repository 06/07/2018/06/07/19 [id number] Ambulatory [address] Repository 06/07/2018/06/08/19 [id number] Ambulatory [address] Repository 06/03/2018/06/05/19 [id number] [place], Inpatient [address] ing:IX9Ukzh: Repository [id number]: 1 06/03/2018 [id number] [place], Ambulatory [facility]MS[facility] [facility] Repository 06/03/2018 [id number] Sementi, Ambulatory BMSBuilding:Keysha Anderson MS.[facility] Repository 06/01/2018 [id number] Sementi, Ambulatory BMSBuilding:Keysha Anderson MS.[facility] Repository 06/01/2018 [id number] Sementi, Ambulatory BMSBuilding:Keysha Anderson MS.[facility] Repository 06/01/2018 [id number] Sementi, Ambulatory BMSBuilding:Keysha Anderson MS.[facility] Repository 06/01/2018/06/02/19 [id number] Ambulatory [address] Repository 05/31/2018/05/31/19 [id number] Emergency [address] ing:ED Repository 05/30/2018/05/30/19 [id number] Ambulatory [address] Repository 05/28/2018/05/28/19 [id number] Ambulatory [address] Repository 05/28/2018/05/30/19 [id number] Ambulatory [address] Repository 02/03/2018/02/05/20 [id number] Ambulatory [address] Repository 12/30/2017/01/01/20 [id number] Ambulatory [address] Repository 12/23/2017/12/27/19 [id number] [facility] ing:IT5Fapy: Repository VW007Lba: 1 12/22/2017 [id number] Ambulatory [facility] ing:LABSPEC Repository 12/22/2017/12/23/19 [id number] LOLA GRACE Ambulatory [address] [place] Repository 12/21/2017/12/23/19 [id number] Ambulatory [address] Main [place] Repository 12/16/2017/12/17/19 [id number] Ambulatory [address] Other [place] Repository 12/16/2017/12/27/19 [id number] Ambulatory BMSBuilding:W [address] Repository 12/13/2017/12/14/19 [id number] Ambulatory [address] Main [place] Repository 12/13/2017/12/16/19 [id number] Ambulatory [place] [facility] [place] Repository 12/10/2017/12/14/19 [id number] Ambulatory [place] [facility] [place] Repository 12/09/2017/12/11/19 [id number] Ambulatory [address] Main [place] Repository 12/07/2017/12/24/19 [id number] Ambulatory [address] Main [place] Repository 12/07/2017/12/08/19 [id number] Ambulatory [address] Other [place] Repository 12/06/2017/12/07/19 [id number] Ambulatory Leyva [facility] [place] Repository 12/01/2017/12/07/19 [id number] Ambulatory [place] [facility] [place] Repository 11/30/2017/12/01/19 [id number] Ambulatory [address] Other [place] Repository 11/29/2017 [id number] Ambulatory [facility] ing:RAD Repository 11/25/2017/11/26/19 [id number] Ambulatory [place] [facility] [place] Repository 11/25/2017/11/27/19 [id number] Ambulatory Le[place] [facility] [place] Repository 11/23/2017/12/17/19 [id number] Ambulatory Le[place] [facility] [place] Repository 11/23/2017/11/24/19 [id number] Ambulatory [place] [facility] Other [place] Repository 11/23/2017/11/24/19 [id number] Ambulatory Le[place] [facility] Other [place] Repository 11/18/2017/11/23/19 [id number] Ambulatory Ley[place] [facility] [place] Repository 11/16/2017/11/17/19 [id number] [place] [facility] ing:ED Repository 11/03/2017/11/06/19 [id number] Ambulatory [address] [place] Repository 11/01/2017/11/02/19 [id number] Ambulatory [address] [place] Repository 10/25/2017/10/27/19 [id number] Ambulatory [address] [place] Repository 10/13/2017 [id number] [place], Ambulatory [facility] Other [place] Repository 10/01/2017/10/02/19 [id number] Ambulatory [address] [place] Repository 10/01/2017/10/02/19 [id number] Ambulatory [address] [place] Repository 08/05/2017/08/07/19 [id number] Ambulatory [address] [place] Repository 07/29/2017/07/30/19 [id number] Ambulatory [address] [place] Repository 07/29/2017/09/07/19 [id number] Ambulatory [address] [place] Repository PAYERS PAYERS ENCOUNTER GUARANTOR PAYER SUBSCRIBER SOURCE 06/10/2018 ASIA Herrera Primary ASIA Hall [id number] [facility] Number: [id number], [place] [id number] Repository 33366Rgn: (330) Date:2018-06-08c/o [phone] (HP) PGBA,LLC/[id number] [place] [phone]: 06/10/2018 Secondary NOT GIVENUNK [place] Insurance:SELF PAY [facility] Number: Effective Repository Date:2018-06-08 06/10/2018 ASIA Herrera Primary ASIA Hall [id number] Insurance:[facility]: [facility] Number: [id number], [place] [id number] Repository 13737Wyx: (330) Date:2018-06-08c/o [phone] (HP) PGBA,LLC[address] [place] [phone]: 06/10/2018 Secondary NOT GIVENUNK [place] Insurance:SELF PAY [facility] Hospital Number: Effective Repository Date:2018-06-10 06/10/2018 ASIA Herrera Primary ASIA Herrera Rafael [id number] Insurance: SHRIVERDOB: [facility] Number: [id number], [place] [id number] Repository 18969Wnp: (195) Date:2018-06-08c/o [phone] (HP) PGBA,LLC/[address] [place] [phone]: 06/10/2018 Secondary NOT GIVENUNK Rafael Insurance:SELF PAY [facility] Hospital Number: Effective Repository Date:2018-06-10 06/08/2018 ASIA Herrera Primary ASIA Herrera [place] [id number] Insurance: SHRIVERDOB: [facility] Number: [id number], [place] [id number] Repository 512[address]Tfn: (102) Date:2018-06-08c/o [phone] (HP) PGBA[address]LLC[address] [place] [phone]: 06/08/2018 Secondary NOT GIVENUNK [place] Insurance:SELF PAY [facility] Hospital Number: Effective Repository Date:2018-06-08 06/08/2018 ASIA Herrera Primary ASIA Herrera Rafael [id number] Insurance: SHRIVERDOB: [facility] Number: [id number], [place] [id number] Repository 77164Vfx: (311) Date:2018-06-08c/o [phone] (HP) PGBA,LLC/[address] [place] [phone]: 06/08/2018 Secondary NOT GIVENUNK Rafael Insurance:SELF PAY [facility] Hospital Number: Effective Repository Date:2018-06-08 06/03/2018 ASIA Herrera Primary ASIA Herrera Rafael [id number] Insurance: SHRIVERDOB: [facility] Number: [id number], [place] [id number] Repository 70830Twj: (330) Date:2018-06-01c/o [phone] (HP) PGBA,LLC[address] [place] [phone]: 06/03/2018 Secondary NOT GIVENUNK [place] Insurance:SELF PAY [facility] Number: Effective Repository Date:2018-06-01 06/03/2018 ASIA Herrera Primary ASIA Herrera [place] [id number] Insurance: SHRIVERDOB: [facility] Number: [id number], [place] [id number] Repository 36973Liy: (201) Date:2018-06-01c/o [phone] (HP) PGBA,LLC/[address] [place] [address]BD: 06/03/2018 Secondary NOT GIVENUNK Rafael Insurance:SELF PAY [facility] Hospital Number: Effective Repository Date:2018-06-03 06/03/2018 ASIA Herrera Primary ASIA Herrera Rafael [id number] [facility] Number: [id number], [place] [id number] Repository 26826Mce: (330) Date:2018-06-01c/o [phone] (HP) PGBA,LLC/[id number] [place] [address]VY: 06/03/2018 Secondary NOT GIVENUNK Rafael Insurance:SELF PAY [facility] Number: Effective Repository Date:2018-06-03 06/01/2018 ASIA Herrera Primary ASIA Herrera [place] [id number] Insurance: SHRIVERDOB: [facility] Number: [id number], [place] [id number] Repository 24538Pbu: (330) Date:2018-06-01c/o [phone] (HP) PGBA,LLC/[address] [place] [address]KO: 06/01/2018 Secondary NOT GIVENUNK Rafael Insurance:SELF PAY [facility] Hospital Number: Effective Repository Date:2018-06-01 06/01/2018 ASIA Herrera Primary ASIA Herrera [place] [id number] Insurance: SHRIVERDOB: [facility] Number: [id number], [place] [id number] Repository 75622Yog: (330) Date:2018-06-01c/o [phone] (HP) PGBA,LLC/[address] [place] [phone]: 06/01/2018 Secondary NOT GIVENUNK [place] Insurance:SELF PAY [facility] Hospital Number: Effective Repository Date:2018-06-01 06/01/2018 ASIA Herrera Primary ASIA Herrera Rafael [id number] Insurance: SHRIVERDOB: [facility] Number: [id number], [place] [id number] Repository 97455Dxl: (330) Date:2018-06-01c/o [phone] (HP) PGBA,LLC/[address] [place] [address]ZE: 06/01/2018 Secondary NOT GIVENUNK [place] Insurance:SELF PAY [facility] Hospital Number: Effective Repository Date:2018-06-01 05/31/2018 ASIA Herrera Primary ASIA Herrera [place] [id number] Insurance: SHRIVERDOB: [facility] Number: [id number], [place] [id number] Repository 50176Zzp: (330) Date:2018-05-31c/o [phone] (HP) PGBA,LLC/[id number] [place] [phone]: 05/31/2018 Secondary NOT GIVENUNK Rafael Insurance:SELF PAY [facility]: Effective Repository Date:2018-05-31 12/23/2017 Asia Herrera Primary Asia Hall [id number] Insurance: ShriverDOB: [facility] Number: [id number], [place] [id number] Repository 33136Xxc: (330) Date:2017-12-06c/o [phone] (HP) PGBA,LLC/[id number] [place] [phone]: 12/23/2017 Secondary NOT GIVENUNK Rafael Insurance:SELF PAY [facility] Hospital Number: Effective Repository Date:2017-12-06 12/22/2017 Asia Herrera Primary Asia Quirozoster [id number] Insurance: ShriverDOB: [facility] Number: [id number], [place] [id number] Repository 93720Cvb: (127) Date:2017-12-22c/o [phone] (HP) PGBA,LLC/[id number] [place] [phone]: 12/22/2017 Secondary NOT GIVENUNK Rafael Insurance:SELF PAY [facility] Hospital Number: Effective Repository Date:2017-12-22 12/16/2017 Asia Herrera Primary Asia Herrera Rafael [id number] Insurance: ShriverDOB: [facility] Number: [id number], [place] [id number] Repository 89576Vvm: (263) Date:2017-12-06c/o [phone] (HP) PGBA,LLC/[id number] [place] [phone]: 12/16/2017 Secondary NOT GIVENUNK Rafael Insurance:SELF PAY [facility] Number: Effective Repository Date:2017-12-16 11/29/2017 Asia Herrera Primary Asia Hall [id number] Insurance: ShriverDOB: [facility] Number: [id number], [place] [id number] Repository 32372Hkd: (330) Date:2017-11-18c/o [phone] (HP) PGBA,LLC/[id number] [place] [phone]: 11/29/2017 Secondary NOT GIVENUNK [place] Insurance:SELF PAY [facility] Number: Effective Repository Date:2017-11-18 11/16/2017 Asia Herrera Primary Asia Hall [id number] Insurance[facility]: [facility] Number: [id number], [place] [id number] Repository 64[address]Kzv: (330) Date:2017-11-16c/o [phone] (HP) PGBA,LLC/[address]BVHPOC[place] [address]EQ: 11/16/2017 Secondary NOT GIVENUNK Rafael Insurance:SELF PAY [facility] Number: Effective Repository Date:2017-11-16
== END 2018-06-05 09:30 | disposition home or self-care (01) | DRG 645 ==
LOC: ED 15:20 → MS2 16:11 → MS3 06-04 15:27
PROVIDERS: Emergency Medicine; Physician Assistant; Admitting Provider Internal Medicine; Emergency Provider Emergency Medicine; Family Provider Family Medicine; PCP Family Medicine; Visit Provider Internal Medicine
DX: E22.2 Syndrome of inappropriate secretion of antidiuretic hormone (principal); E03.9 Hypothyroidism, unspecified; K21.9 Gastro-esophageal reflux disease without esophagitis; R74.8 Abnormal levels of other serum enzymes; Z90.49 Acquired absence of other specified parts of digestive tract; Z87.19 Personal history of other diseases of the digestive system
CPT/HCPCS: 36415; 71046; 80048; 80053; 82533; 83735; 83930; 83935; 84300; 85025; 85027; 85652; 86140; 87633; 97802; J7030; A4216; J1940

== ENCOUNTER 2018-06-08 06:58 | Inpatient (IN) | payer OTHER, SELFPAY ==
[2018-06-08] VITALS (9 sets, daily range): BP systolic 128–154; BP diastolic 65–93; PULSE 78–113; RESP 16–20; TEMP 35.8–37.2; O2SAT 100; BMI 27.2; BMI 26.7; BMI 26.8
--- NOTE | 2018-06-08 07:21 | ED.VISSUMM ---
- ER Visit Summary Date of Service: 06/08/18 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: Generalized weakness. I think my sodium is low again History of Present Illness: The patient is a 58 F history of hypothyroidism, diverticular colitis and recently low sodium. Patient denies any recent med changes. She was treated as an outpatient and admitted for low sodium. She was just discharged on Wednesday. Says she just feels weak all over and believes her sodium may be low again. She denies any vomiting or diarrhea. She is on no blood pressure medications. She is currently on salt tablets. Physical Examination: Older female no acute distress. Vital signs are stable and afebrile. H EENT exam unremarkable. Moist mucous membranes. Neck nontender no lymphadenopathy. Lungs clear to auscultation bilaterally. Heart regular rhythm rate about 105 no murmur. Abdomen is soft and nontender. Normal bowel sounds no peritoneal signs. She is moving all 4 extremities. There is no edema. She has normal motor strength with manager continuous improvement to both hands. 5 out of 5. Dorsi plantar flexion intact. Back is nontender. Skin is unremarkable. Neurologically she is awake and alert with no focal motor deficits. Test Results: CBC shows white count of 10. Hemoglobin 14. No bands. BMP shows sodium of 125. Chloride at 91. Gap of 9. Creatinine is 0.7. Emergency Department Course and Treatment: Patient treated with a liter of normal saline. Pills as prescribed 3 times a day. The only when she missed was last night she said she felt so poorly. She is requesting admission. Treatment Plan: I have the hospitalist on page. Disposition: Admission Impression: Acute generalized weakness secondary to hyponatremia History of SIADH of uncertain etiology This note was generated with [employer] dictation software. It may contain incorrect words, spelling, and punctuation that were not noted in review of the chart prior to signing ED Disposition - Plan for ED Patient: 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: Abn Labs Referrals: Yasir Smith MD [Primary Care Provider] -
[2018-06-08 07:23] LABS: Absolute Neutrophil Count 8.3 X10^3/uL (2.0-7.7); Basophil# 0.01 X10^3/uL; Basophil% 0.1 % (0-1); Hematocrit 40.9 % (37-47); Hemoglobin 14.8 g/dl (12.0-15.0); Lymphocyte % 13.1 % (19-41); Mean Corp Hgb Conc 36.2 g/gl (32-36); Mean Corpuscular Hgb 29.5 pg (27.0-32.0); Mean Corpuscular Volume 81.5 fL (81-99); Mean Platelet Vol. 9.6 fl (6.2-12.0); Monocyte# 0.94 X10^3/uL; Monocyte% 8.8 % (0-10); Neutrophil # 8.27 X10^3/uL (2.7-7.7); Neutrophil % 77.7 % (47-70); Platelet Count 380 K/mm3 (150-450); RBC Distribution Width CV 12.1 % (11.6-14.6); RBC Distribution Width SD 35.7 fl (35.1-43.9); Red Blood Count 5.02 M/mm3 (4.2-5.4); White Blood Count 10.7 K/mm3 (4.4-11.0)
[2018-06-08 07:24] LABS: POSITIVE COUNT NO; POSITIVE DIFFERENTIAL NO; POSITIVE MORPHOLOGY NO
--- NOTE | 2018-06-08 07:24 | ED.DCSUM_ITS ---
- ER Visit Summary Date of Service: 06/08/18 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: Generalized weakness. I think my sodium is low again History of Present Illness: The patient is a 58 F history of hypothyroidism, diverticular colitis and recently low sodium. Patient denies any recent med changes. She was treated as an outpatient and admitted for low sodium. She was just discharged on Wednesday. Says she just feels weak all over and believes her sodium may be low again. She denies any vomiting or diarrhea. She is on no blood pressure medications. She is currently on salt tablets. Physical Examination: Older female no acute distress. Vital signs are stable and afebrile. H EENT exam unremarkable. Moist mucous membranes. Neck nontender no lymphadenopathy. Lungs clear to auscultation bilaterally. Heart regular rhythm rate about 105 no murmur. Abdomen is soft and nontender. Normal bowel sounds no peritoneal signs. She is moving all 4 extremities. There is no edema. 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 5 out of 5. Dorsi plantar flexion intact. Back is nontender. Skin is unremarkable. Neurologically she is awake and alert with no focal motor deficits. Test Results: CBC shows white count of 10. Hemoglobin 14. No bands. BMP shows sodium of 125. Chloride at 91. Gap of 9. Creatinine is 0.7. Emergency Department Course and Treatment: Patient treated with a liter of normal saline. Pills as prescribed 3 times a day. The only when she missed was last night she said she felt so poorly. She is requesting admission. Treatment Plan: I have the hospitalist on page. Disposition: Admission Impression: Acute generalized weakness secondary to hyponatremia History of SIADH of uncertain etiology This note was generated with [employer] dictation software. It may contain incorrect words, spelling, and punctuation that were not noted in review of the chart prior to signing ED Disposition - Plan for ED Patient: 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: Abn Labs Referrals: Yasir Smith MD [Primary Care Provider] -
[2018-06-08] MEDS: 0.9% Normal Saline 1,000 ML 999 ML IV (07:27)
[2018-06-08 07:32] LABS: Anion Gap 9 (5-15); BUN 14 mg/dL (7-18); BUN/Creat Ratio 18.1 RATIO (10-20); Calcium,Total 9.2 mg/dL (8.5-10.1); Chloride 91 mmol/L (98-107); Creatinine, Serum 0.77 mg/dL (0.55-1.02); EST Glomerular Filtration Rate 81 mL/min (>60); Est Glom Filt Rate - Afr Amer 98 mL/min (>60); Estimated Creatinine Clearance 72.73 ml/min; Glucose 148 mg/dL (74-106); Potassium 3.8 mmol/L (3.5-5.1); Sodium Level 125 mmol/L (136-145)
--- NOTE | 2018-06-08 09:39 | CT_ITS ---
STUDY: CT CHEST WITH CONTRAST REASON FOR EXAM: Female, 58 years old. Unexplained weight loss. RADIATION DOSAGE (If Supplied By Facility): CTDIvol = ( 19.94 ) mGy, DLP = ( 913.94 ) mGycm TECHNIQUE: Transaxial imaging was performed following intravenous administration of 100 ml of Isovue 300 contrast material. Multiplanar coronal and sagittal images were reformatted. Individualized dose optimization techniques were used for this CT. COMPARISON: None. FINDINGS: There is a 1 cm hypodensity in the posterior aspect of the right lobe of the thyroid inferiorly. Mild degree of increased linear markings with focal areas of bronchiectasis in the medial aspect of the right middle lobe as well as in the medial aspect of the lingular segment of the left upper lobe. There is no demonstrated pleural abnormality. Normal heart and pericardium. Normal mediastinum. Normal hilar regions. Normal enhanced pulmonary arteries. Normal aorta arch and descending thoracic aorta. There are mild degenerative changes of the thoracic spine. Mild loss of height of the superior endplate of the T11 vertebrae. There is no demonstrated abnormality of the visualized upper abdomen. CT/Chest WITH Contrast IMPRESSION: Findings suggesting mild degree of scarring in the anterior medial aspect of the right middle lobe as well as the medial aspect of the lingular segment of the left upper lobe. Electronically Signed: Joaquin Ellington MD at 13:40 EST , Service support ,
--- NOTE | 2018-06-08 09:39 | CT_ITS ---
STUDY: CT ABDOMEN AND PELVIS WITH CONTRAST REASON FOR EXAM: Female, 58 years old. Unexplained weight loss. RADIATION DOSAGE (If Supplied By Facility): CTDIvol = ( 19.94 ) mGy, DLP = ( 913.94 ) mGycm TECHNIQUE: Transaxial images were obtained from the dome of the diaphragm to the symphysis pubis with oral contrast. 100 ml of Isovue 300 contrast was administered. Sagittal and coronal images were reconstructed. Individualized dose optimization techniques were used for this CT. COMPARISON: Comparison is made with prior study dated November 16, 2017. FINDINGS: The visualized lung bases are unremarkable. The visualized portions of the heart are within normal limits. Normal liver. Normal gallbladder and extrahepatic biliary system. Normal spleen. Normal pancreas. Normal bilateral adrenal glands. Normal right kidney. Normal left kidney. Normal visualized stomach. Normal small intestine. A large amount of fecal material is seen in the colon. Limits of anastomosis at the rectosigmoid junction. The patient is status post appendectomy. Normal abdominal aorta. Normal inferior vena cava. Normal retroperitoneum. Normal urinary bladder. The patient is status post bilateral oophorectomy. Normal abdominal wall. There are diffuse degenerative changes of the visualized lumbar spine. Stable loss of height of the superior endplate of the T11 vertebrae. CT/Abdomen/Pelvis WITH Contrast IMPRESSION: Large amount of fecal material is seen in the colon. Electronically Signed: Joaquin Ellington MD at 13:37 EST , Service support ,
--- NOTE | 2018-06-08 09:47 | PCM.CONS.R ---
Problem List (1) Hyponatremia Status: Acute Consultation - Renal PCP/ Referring MD: Requesting physician: [] Primary care physician: Yasir Smith MD - History of Present Illness History of Present Illness: [The patient is a 58 year old F past medical history of hypothyroidism and GERD. Patient was admitted recently for hyponatremia. Workup showed SIADH as an etiology. Patient responded well to Lasix and salt tablet. At discharge, sodium was 129. Discharge with salt tablets 1 g p.o. 3 times a day. patient followED with her PCP yesterday when her sodium was found to be 127. Patient did not feel well after dinner yesterday and presented to the emergency room. In the ED, sodium was found to be low at 125. Patient did not take salt tablet last night. Patient just complaining of headache this morning but she thinks because she has not eaten yet this morning. No nausea no vomiting no blurry vision. She thinks she is slightly better than yesterday. Review of system Review of system: 12 system review is negative except as mentioned HPI - Allergies Allergies: [facility]ies [facility] Allergy (Verified 06/01/18 13:53) Unknown - Current Medications Current Medications: Current Medications Aspirin (Aspirin, Baby) 81 mg PO DAILY@0800 [facility] Enoxaparin Sodium (Lovenox) 40 mg SC DAILY@1000 [facility] Levothyroxine Sodium (Synthroid) 75 mcg PO DAILY [facility] Magnesium Hydroxide (Milk Of Magnesia) 30 ml PO DAILY PRN PRN PRN Reason: Constipation Non-Formulary Medication (Multivit-Min/Iron/Folic/Lutein [Centrum Silver Women Tablet]) 1 tab PO DAILY [facility] Non-Formulary Medication (Sodium Chloride) 1 gm PO TID [facility] - Past Medical History Past Medical History (Chronic Problems): Chronic Problems History of ureter stent (Chronic) Hypothyroid (Chronic) GERD (gastroesophageal reflux disease) (Chronic) Diverticulitis (Chronic) - Past Surgical History Surgical History: noncontributory - Social History Smoking Status: Never smoker - Family History Maternal History Items: Hypertension Paternal History Items: Heart Disease, Hypertension - Physical Exam General: Alert, Oriented x3 HEENT: Atraumatic Oral: Moist Mucosa Neck: Supple, No JVD Lungs: Clear to auscultation, Normal air movement Cardiovascular: Regular rate, Regular Rhythm, Normal S1, Normal S2 Abdomen: Bowel Sounds Present, Non Tender, Non-Distended Extremities: No clubbing, No cyanosis, No edema Skin: No rashes Musculoskeletal: No Tenderness to Palpation of Joints or Extremities Lymphatic: No Cervical, Supraclavicular, or Inguinal Adenopathy Neurological: Cranial nerves II-XII grossly intact, Neuro grossly intact Psych/Mental Status: Normal Affect Vital Signs Temp Pulse Resp BP Pulse Ox 99 F 91 16 146/93 H 100 06/08/18 08:47 06/08/18 08:47 06/08/18 08:47 06/08/18 08:47 06/08/18 08:47 Oxygen Delivery Method Room Air Weight: 75.2 kg Body Mass Index (BMI) 26.7 Laboratory Tests Past 24 Hrs 06/08/18 06/08/18 07:02 07:02 WBC 10.7 RBC 5.02 Hgb 14.8 Hct 40.9 MCV 81.5 MCH 29.5 MCHC 36.2 H RDW 12.1 RDW Differential 35.7 Plt Count 380 MPV 9.6 Immature Gran % (Auto) 0.300 Neut % (Auto) 77.7 H Lymph % (Auto) 13.1 L [place] % (Auto) 8.8 Eos % (Auto) 0.0 Baso % (Auto) 0.1 Absolute Neuts (auto) 8.3 H Absolute Lymphs (auto) 1.40 Total Counted Not Reportable Sodium 125 L Potassium 3.8 Chloride 91 L Carbon Dioxide 25.0 Anion Gap 9 BUN 14 Creatinine 0.77 Estim Creat Clear Calc 72.73 Est GFR (MDRD) Af Amer 98 Est GFR (MDRD) Non-Af 81 BUN/Creatinine Ratio 18.1 Glucose 148 H Calcium 9.2 Assessment/Plan All Active Problems Hyponatremia (Acute) 1-normovolemic hyponatremia. New onset. Etiology was proven to be from SIADH from previous admission when urine sodium was 116 and urine osmolarity was 558. Previous admission, she responded well to Lasix and salt tablet along with fluid restriction. I agree with continuing itching of fluid restriction 1000 mL a day. I will continue salt tablets 1 g 3 times daily. I will start the patient Lasix 40 mg p.o. daily. Regarding the etiology of SIADH still unclear. Patient has been losing weight. Patient states she has lost 15 pounds in the last month. I agree with doing a CAT scan of the pelvis/abdomen and chest looking for any mass. 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 Patient said the mass was not malignant. Patient has not been on SSRI. No need for 3% sodium chloride. Please avoid hydrochlorothiazide. Avoid SSRI. Check sodium level in a.m.. Thank you for the consult. Renal team will continue to follow d/w Dr. Lacy
[2018-06-08] MEDS: Furosemide 40 MG Tablet PO (12:25)
[2018-06-08] MEDS: SODIUM CHLORIDE 1 GM TABLET PO ×2 (12:25→21:12)
[2018-06-08] MEDS: Enoxaparin 40 MG/0.4 ML Syringe SC (12:25)
--- NOTE | 2018-06-08 13:57 | PCM.HP.STD ---
History of Present Illness Date of Admission: 06/08/18 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: hyponatremia The patient is a 58 year old F with a past medical history of GERD and hypothyroidism. She was admitted with a complaint of generalized fatigue over days duration. Patient was discharged about 3 days ago from [facility] after she was admitted and managed for acute onset hyponatremia. During that admission she was diagnosed with SIADH and account of elevated urine osmolality and urine sodium of 116. She responded to salt tablets and Lasix was on admission and was discharged home with a sodium of 129. She was continued taking his salt tablets. She states she saw her primary care doctor about 2 days ago and his sodium level is 127. Patient says she was not feeling well was feeling very lethargic and so did not take her sodium tablets last night. She decided to come into the ED on account of worsening fatigue. She denied any fever or chills, palpitations or dizziness, abdominal pain, diarrhea or vomiting. She did admit to weight loss which was unintentional. She says she is to be about 180 kg at the beginning of the month but now weighs 168 pounds. 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 She also had a colonoscopy recently in December 2017 on account of diverticular disease for which she had a hemicolectomy done. On admission, sodium was 125. She is been admitted to be managed for hyponatremia. [] Past Medical History Past Medical History (Chronic Problems): Chronic Problems History of ureter stent (Chronic) Hypothyroid (Chronic) GERD (gastroesophageal reflux disease) (Chronic) Diverticulitis (Chronic) Allergies cetirizine [From [facility]] Allergy (Verified 06/01/18 13:53) Unknown Home Medications: Ambulatory Orders Medication Instructions Recorded Aspirin [Aspirin, Baby] 81 mg PO DAILY@0800 11/16/17 Levothyroxine Sodium 75 mcg PO DAILY 06/01/18 Multivit-Min/Iron/Folic/Lutein 1 tab PO DAILY 06/01/18 [Centrum Silver Women Tablet] Sodium Chloride 1 gm PO TID #60 tablet 06/05/18 Surgical History: noncontributory Lives: Alone Smoking Status: Never smoker Tobacco Use: Non-smoker - has been exposed to second hand smoke Alcohol: None Drugs: None - *Family History Maternal History Items: Hypertension Paternal History Items: Heart Disease, Hypertension Review of Systems Constitutional: Reports: Malaise, Fatigue. Denies: Anorexia, Chills, Fever Eyes: Denies: Blurred vision HEENT: Denies: Head Aches, Sinus Congestion, Sinus Drainage Cardiovascular: Denies: Chest Pain, Palpitations Respiratory: Denies: Cough, Shortness of breath at rest, Sputum production Gastrointestinal: Denies: Abdominal Pain, Nausea, Vomiting Genitourinary: Denies: Dysuria Musculoskeletal: Denies: Joint Pain, Joint Tenderness Skin: Denies: Rash, Wounds Neurological: Denies: Numbness, Tingling, Focal weakness Psychiatric: Denies: Anxiety, Depression, Homicidal Ideations, Suicidal Ideations Hematologic/ Lymphatic: Denies: Easy Bruising, Easy Bleeding VTE Information - Inpt Only VTE Present on Admission: No VTE Pharm Prophylaxis ordered?: Yes - Physical Exam General: Alert, Oriented x3, Cooperative, Lethargic HEENT: Atraumatic, PERRLA, EOMI, Normocephalic Oral: Moist Mucosa Neck: Supple, No JVD, Negative Carotid Bruits Lungs: Clear to auscultation, Normal air movement, No rhonchi, No wheeze, No rales Cardiovascular: Regular rate, Regular Rhythm, Normal S1, Normal S2, No murmurs Abdomen: Bowel Sounds Present, Soft, Non Tender, Non-Distended, No Hepato-splenomegaly Extremities: No clubbing, No cyanosis, No edema, Capillary Refill Less than 3 Seconds Skin: No rashes, No breakdown Musculoskeletal: No Tenderness to Palpation of Joints or Extremities Lymphatic: No Cervical, Supraclavicular, or Inguinal Adenopathy Neurological: Cranial nerves II-XII grossly intact, Deep Tendon Reflexes 2+/4 and Symmetrical, Neuro grossly intact, Motor Exam 5/5 strength throughout Psych/Mental Status: Normal Affect, Appropriate, Alert and oriented to time, place, person, mood and affect Vital Signs Temp Pulse Resp BP Pulse Ox 99 F 92 16 146/93 H 100 06/08/18 08:47 06/08/18 11:07 06/08/18 08:47 06/08/18 08:47 06/08/18 08:47 Oxygen Delivery Method Room Air Weight: 165 lb 12.602 oz Body Mass Index (BMI) 26.7 Intake and Output for Last 24 Hours 06/06/18 06/07/18 06/08/18 23:59 23:59 23:59 Intake Total 240 / 240 Output Total 130 / 130 Balance 110 / 110 Laboratory Tests Past 24 Hrs 06/08/18 06/08/18 07:02 07:02 WBC 10.7 RBC 5.02 Hgb 14.8 Hct 40.9 MCV 81.5 MCH 29.5 MCHC 36.2 H RDW 12.1 RDW Differential 35.7 Plt Count 380 MPV 9.6 Immature Gran % (Auto) 0.300 Neut % (Auto) 77.7 H Lymph % (Auto) 13.1 L [place] % (Auto) 8.8 Eos % (Auto) 0.0 Baso % (Auto) 0.1 Absolute Neuts (auto) 8.3 H Absolute Lymphs (auto) 1.40 Total Counted Not Reportable Sodium 125 L Potassium 3.8 Chloride 91 L Carbon Dioxide 25.0 Anion Gap 9 BUN 14 Creatinine 0.77 Estim Creat Clear Calc 72.73 Est GFR (MDRD) Af Amer 98 Est GFR (MDRD) Non-Af 81 BUN/Creatinine Ratio 18.1 Glucose 148 H Calcium 9.2 Diagnostic Data Abdomen/Pelvis CT 06/08/18 09:39 IMPRESSION: Large amount of fecal material is seen in the colon. Electronically Signed: Joaquin Ellington MD at 13:37 EST , Service support , Chest CT 06/08/18 09:39 IMPRESSION: Findings suggesting mild degree of scarring in the anterior medial aspect of the right middle lobe as well as the medial aspect of the lingular segment of the left upper lobe. Electronically Signed: Joaquin Ellington MD at 13:40 EST , Service support , Assessment/Plan All Active Problems Hyponatremia (Acute) 58 y.o female admitted with a complaint of generalised fatigue and found to have hyponatremia 1. Acute hyponatremia duetSIADH patient recently diagnosed with SIADH and discharged just 3 days ago sodium was 129 on discharge sodium today is 125 serum osmolality done 06/01/18 was low-267; will therefore not do serum osmolality urine osmolality was >500, and urine sodium was 116 admit to PCU with telemetry consult nephrology resume salt tablets fluid restriction to 1500cc per nephro, to start on PO lasix 40mg daily 2. Unexplained weight loss says she has lost ~ 15 pounds over the last few weeks. had a mammogram ~ 1 year ago which was normal, had a colonoscopy in December 2017. CT of the chest abdomen and pelvis with and without contrast ordered showed no evidence of any potential malignancy. We will continue to monitor. 3. SIADH: etiology not clear. management as under 1. 4. Hypothyroidism TSH was 1.82 on admission. on synthroid DVT prophylaxis: heparin Code Visit Inpatient E&M: 13416 Init Hosp L3
--- NOTE | 2018-06-08 14:02 | HP.PCM_ITS ---
History of Present Illness Date of Admission: 06/08/18 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: hyponatremia The patient is a 58 year old F with a past medical history of GERD and hypothyroidism. She was admitted with a complaint of generalized fatigue over days duration. Patient was discharged about 3 days ago from [facility] after she was admitted and managed for acute onset hyponatremia. During that admission she was diagnosed with SIADH and account of elevated urine osmolality and urine sodium of 116. She responded to salt tablets and Lasix was on admission and was discharged home with a sodium of 129. She was continued taking his salt tablets. She states she saw her primary care doctor about 2 days ago and his sodium level is 127. Patient says she was not feeling well was feeling very lethargic and so did not take her sodium tablets last night. She decided to come into the ED on account of worsening fatigue. She denied any fever or chills, palpitations or dizziness, abdominal pain, diarrhea or vomiting. She did admit to weight loss which was unintentional. She says she is to be about 180 kg at the beginning of the month but now weighs 168 pounds. 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 She also had a colonoscopy recently in December 2017 on account of diverticular disease for which she had a hemicolectomy done. On admission, sodium was 125. She is been admitted to be managed for hyponatremia. [] Past Medical History Past Medical History (Chronic Problems): Chronic Problems History of ureter stent (Chronic) Hypothyroid (Chronic) GERD (gastroesophageal reflux disease) (Chronic) Diverticulitis (Chronic) Allergies cetirizine [From Zyrte] Allergy (Verified 06/01/18 13:53) Unknown Home Medications: Ambulatory Orders Medication Instructions Recorded Aspirin [Aspirin, Baby] 81 mg PO DAILY@0800 11/16/17 Levothyroxine Sodium 75 mcg PO DAILY 06/01/18 Multivit-Min/Iron/Folic/Lutein 1 tab PO DAILY 06/01/18 [Centrum Silver Women Tablet] Sodium Chloride 1 gm PO TID #60 tablet 06/05/18 Surgical History: noncontributory Lives: Alone Smoking Status: Never smoker Tobacco Use: Non-smoker - has been exposed to second hand smoke Alcohol: None Drugs: None - *Family History Maternal History Items: Hypertension Paternal History Items: Heart Disease, Hypertension Review of Systems Constitutional: Reports: Malaise, Fatigue. Denies: Anorexia, Chills, Fever Eyes: Denies: Blurred vision HEENT: Denies: Head Aches, Sinus Congestion, Sinus Drainage Cardiovascular: Denies: Chest Pain, Palpitations Respiratory: Denies: Cough, Shortness of breath at rest, Sputum production Gastrointestinal: Denies: Abdominal Pain, Nausea, Vomiting Genitourinary: Denies: Dysuria Musculoskeletal: Denies: Joint Pain, Joint Tenderness Skin: Denies: Rash, Wounds Neurological: Denies: Numbness, Tingling, Focal weakness Psychiatric: Denies: Anxiety, Depression, Homicidal Ideations, Suicidal Ideations Hematologic/ Lymphatic: Denies: Easy Bruising, Easy Bleeding VTE Information - Inpt Only VTE Present on Admission: No VTE Pharm Prophylaxis ordered?: Yes - Physical Exam General: Alert, Oriented x3, Cooperative, Lethargic HEENT: Atraumatic, PERRLA, EOMI, Normocephalic Oral: Moist Mucosa Neck: Supple, No JVD, Negative Carotid Bruits Lungs: Clear to auscultation, Normal air movement, No rhonchi, No wheeze, No rales Cardiovascular: Regular rate, Regular Rhythm, Normal S1, Normal S2, No murmurs Abdomen: Bowel Sounds Present, Soft, Non Tender, Non-Distended, No Hepato- splenomegaly Extremities: No clubbing, No cyanosis, No edema, Capillary Refill Less than 3 Seconds Skin: No rashes, No breakdown Musculoskeletal: No Tenderness to Palpation of Joints or Extremities Lymphatic: No Cervical, Supraclavicular, or Inguinal Adenopathy Neurological: Cranial nerves II-XII grossly intact, Deep Tendon Reflexes 2+/4 and Symmetrical, Neuro grossly intact, Motor Exam 5/5 strength throughout Psych/Mental Status: Normal Affect, Appropriate, Alert and oriented to time, place, person, mood and affect Vital Signs Temp Pulse Resp BP Pulse Ox 99 F 92 16 146/93 H 100 06/08/18 08:47 06/08/18 11:07 06/08/18 08:47 06/08/18 08:47 06/08/18 08:47 Oxygen Delivery Method Room Air Weight: 165 lb 12.602 oz Body Mass Index (BMI) 26.7 Intake and Output for Last 24 Hours 06/06/18 06/07/18 06/08/18 23:59 23:59 23:59 Intake Total 240 / 240 Output Total 130 / 130 Balance 110 / 110 Laboratory Tests Past 24 Hrs 06/08/18 06/08/18 07:02 07:02 WBC 10.7 RBC 5.02 Hgb 14.8 Hct 40.9 MCV 81.5 MCH 29.5 MCHC 36.2 H RDW 12.1 RDW Differential 35.7 Plt Count 380 MPV 9.6 Immature Gran % (Auto) 0.300 Neut % (Auto) 77.7 H Lymph % (Auto) 13.1 L [place] % (Auto) 8.8 Eos % (Auto) 0.0 Baso % (Auto) 0.1 Absolute Neuts (auto) 8.3 H Absolute Lymphs (auto) 1.40 Total Counted Not Reportable Sodium 125 L Potassium 3.8 Chloride 91 L Carbon Dioxide 25.0 Anion Gap 9 BUN 14 Creatinine 0.77 Estim Creat Clear Calc 72.73 Est GFR (MDRD) Af Amer 98 Est GFR (MDRD) Non-Af 81 BUN/Creatinine Ratio 18.1 Glucose 148 H Calcium 9.2 Diagnostic Data Abdomen/Pelvis CT 06/08/18 09:39 IMPRESSION: Large amount of fecal material is seen in the colon. Electronically Signed: Joaquin Ellington MD at 13:37 EST , Service support , Chest CT 06/08/18 09:39 IMPRESSION: Findings suggesting mild degree of scarring in the anterior medial aspect of the right middle lobe as well as the medial aspect of the lingular segment of the left upper lobe. Electronically Signed: Joaquin Ellington MD at 13:40 EST , Service support , Assessment/Plan All Active Problems Hyponatremia (Acute) 58 y.o female admitted with a complaint of generalised fatigue and found to have hyponatremia 1. Acute hyponatremia duetSIADH * patient recently diagnosed with SIADH and discharged just 3 days ago * sodium was 129 on discharge * sodium today is 125 * serum osmolality done 06/01/18 was low-267; will therefore not do serum osmolality * urine osmolality was >500, and urine sodium was 116 * admit to PCU with telemetry * consult nephrology * resume salt tablets * fluid restriction to 1500cc * per nephro, to start on PO lasix 40mg daily 2. Unexplained weight loss * says she has lost ~ 15 pounds over the last few weeks. * had a mammogram ~ 1 year ago which was normal, had a colonoscopy in December 2017. * CT of the chest abdomen and pelvis with and without contrast ordered showed no evidence of any potential malignancy. * We will continue to monitor. * 3. SIADH: etiology not clear. management as under 1. 4. Hypothyroidism * TSH was 1.82 on admission. * on synthroid * DVT prophylaxis: heparin Code Visit Inpatient E&M: 67715 Init Hosp L3
[2018-06-08] MEDS: Acetaminophen 325 MG Tablet 650 MG PO (15:29)
[2018-06-08] MEDS: 0.9% Normal Saline 1,000 ML 75 ML IV (18:44)
[2018-06-08] MEDS: Polyethylene Glycol 3350 17 GM PACKET PO (18:44)
[2018-06-08] MEDS: 0.9% NaCl Peripheral Flush Adult/Peds IV (18:45)
[2018-06-09] VITALS (11 sets, daily range): BP systolic 124–141; BP diastolic 80–90; PULSE 75–97; RESP 16–18; TEMP 36.7–36.9; O2SAT 98–100
[2018-06-09] MEDS: Levothyroxine 75 MCG Tablet PO (05:16)
[2018-06-09] MEDS: SODIUM CHLORIDE 1 GM TABLET PO ×3 (05:16→21:57)
[2018-06-09 06:04] LABS: Anion Gap 9 (5-15); BUN 12 mg/dL (7-18); Chloride 92 mmol/L (98-107); Creatinine, Serum 0.63 mg/dL (0.55-1.02); EST Glomerular Filtration Rate 102 mL/min (>60); Est Glom Filt Rate - Afr Amer 123 mL/min (>60); Glucose 88 mg/dL (74-106); Potassium 3.9 mmol/L (3.5-5.1); Sodium Level 128 mmol/L (136-145)
[2018-06-09 06:14] LABS: Absolute Lymphocyte Count 2.31 X10^3/ul (0.83-4.51); Absolute Neutrophil Count 4.3 X10^3/uL (2.0-7.7); Hematocrit 38.9 % (37-47); Hemoglobin 13.7 g/dl (12.0-15.0); Lymphocyte # 2.31 X10^3/ul (4.0); Lymphocyte % 30.6 % (19-41); Mean Corp Hgb Conc 35.2 g/gl (32-36); Mean Corpuscular Hgb 29.3 pg (27.0-32.0); Mean Corpuscular Volume 83.1 fL (81-99); Mean Platelet Vol. 9.6 fl (6.2-12.0); Monocyte# 0.93 X10^3/uL; Monocyte% 12.3 % (0-10); Neutrophil # 4.28 X10^3/uL (2.7-7.7); Neutrophil % 56.7 % (47-70); Platelet Count 309 K/mm3 (150-450); RBC Distribution Width CV 12.4 % (11.6-14.6); RBC Distribution Width SD 37.4 fl (35.1-43.9); Red Blood Count 4.68 M/mm3 (4.2-5.4); White Blood Count 7.6 K/mm3 (4.4-11.0)
[2018-06-09 06:21] LABS: POSITIVE COUNT NO; POSITIVE DIFFERENTIAL NO; POSITIVE MORPHOLOGY NO
--- NOTE | 2018-06-09 09:46 | PCM.PN.REN ---
Subjective: Pt is doing well but still has some nausea and headache - Physical Exam General: Alert, Oriented x3 HEENT: Atraumatic Oral: Moist Mucosa Neck: Supple, No JVD Lungs: Clear to auscultation, Normal air movement, No rhonchi, No wheeze Cardiovascular: Regular rate, Regular Rhythm, Normal S1, Normal S2, No murmurs Abdomen: Bowel Sounds Present, Soft, Non Tender, Non-Distended Extremities: No clubbing, No cyanosis, No edema Skin: No rashes Musculoskeletal: No Tenderness to Palpation of Joints or Extremities Lymphatic: No Cervical, Supraclavicular, or Inguinal Adenopathy Neurological: Cranial nerves II-XII grossly intact, Neuro grossly intact Psych/Mental Status: Normal Affect Vital Signs Temp Pulse Resp BP Pulse Ox 98.1 F 97 18 138/83 H 100 06/09/18 05:12 06/09/18 07:00 06/09/18 05:12 06/09/18 05:12 06/09/18 05:12 Oxygen Delivery Method Room Air Weight: 75.2 kg Body Mass Index (BMI) 26.7 Intake and Output for Last 24 Hours 06/07/18 06/08/18 06/09/18 23:59 23:59 23:59 Intake Total 480 / 480 980 / 980 Output Total 130 / 130 600 / 600 Balance 350 / 350 380 / 380 Laboratory Tests Past 24 Hrs 06/09/18 06/09/18 05:05 05:05 WBC 7.6 RBC 4.68 Hgb 13.7 Hct 38.9 MCV 83.1 MCH 29.3 MCHC 35.2 RDW 12.4 RDW Differential 37.4 Plt Count 309 MPV 9.6 Immature Gran % (Auto) 0.400 Neut % (Auto) 56.7 Lymph % (Auto) 30.6 [place] % (Auto) 12.3 H Eos % (Auto) 0.0 Baso % (Auto) 0.0 Absolute Neuts (auto) 4.3 Absolute Lymphs (auto) 2.31 Total Counted Not Reportable Sodium 128 L Potassium 3.9 Chloride 92 L Carbon Dioxide 27.0 Anion Gap 9 BUN 12 Creatinine 0.63 Estim Creat Clear Calc 88.90 Est GFR (MDRD) Af Amer 123 Est GFR (MDRD) Non-Af 102 BUN/Creatinine Ratio 19.0 Glucose 88 Calcium 9.0 Medical Necessity - Tobacco Use Smoking Status: Never smoker Tobacco Use: Non-smoker - has been exposed to second hand smoke Assessment/Plan All Active Problems Hyponatremia (Acute) 1-normovolemic hyponatremia. New onset. Etiology was proven to be from SIADH from previous admission when urine sodium was 116 and urine osmolarity was 558.Na level is better today . last trend 125->128 Will continuing fluid [id number] mL a day, salt tablets 1 g 3 times daily, and Lasix 40 mg p.o. daily. Regarding the etiology of SIADH still unclear. Patient has been losing weight. Patient states she has lost 15 pounds in the last month. CAT scan of the pelvis/abdomen and chest with IV contrast is negative for mass . 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 Patient said the mass was not malignant. Patient has not been on SSRI. No need for 3% sodium chloride. Please avoid hydrochlorothiazide. Avoid SSRI. Check sodium level in a.m.. Renal team will continue to follow d/w Dr. Lacy
[2018-06-09] MEDS: Multivitamins,Ther W-Minerals Tablet 1 TABLET PO (10:20)
[2018-06-09] MEDS: Aspirin 81 MG TAB.CHEW PO (10:20)
[2018-06-09] MEDS: Furosemide 40 MG Tablet PO (10:21)
[2018-06-09] MEDS: Enoxaparin 40 MG/0.4 ML Syringe SC (10:21)
--- NOTE | 2018-06-09 11:18 | PCM.PROGNOTE ---
<Lang Herrera - Last Filed: 06/09/18 11:18> Subjective: Pt states she feels overall improved concerning fatigue, and nausea. She is still nauseous without vomiting somewhat this AM. She also complains of ongoing tongue numbness and taste changes that began along with her other symptoms this year. She has a mild 1-2/10 headache. No LE edema. No hearing or vision changes. - Physical Exam General: Alert, Oriented x3, Cooperative HEENT: Atraumatic, PERRLA, EOMI, Normocephalic Neck: Supple, No JVD, Negative Carotid Bruits Lungs: Clear to auscultation, Normal air movement Cardiovascular: Regular rate, No murmurs Abdomen: Bowel Sounds Present, Soft, Non Tender Extremities: No edema, Capillary Refill Less than 3 Seconds Skin: No rashes, No breakdown Musculoskeletal: No Tenderness to Palpation of Joints or Extremities Neurological: Cranial nerves II-XII grossly intact Psych/Mental Status: Normal Affect, Appropriate, Alert and oriented to time, place, person, mood and affect Vital Signs Temp Pulse Resp BP Pulse Ox 98.2 F 87 16 139/90 H 100 06/09/18 10:15 06/09/18 10:15 06/09/18 10:15 06/09/18 10:15 06/09/18 10:15 Oxygen Delivery Method Room Air Weight: 165 lb 12.602 oz Body Mass Index (BMI) 26.7 Intake and Output for Last 24 Hours 06/07/18 06/08/18 06/09/18 23:59 23:59 23:59 Intake Total 480 / 480 980 / 980 Output Total 130 / 130 600 / 600 Balance 350 / 350 380 / 380 Laboratory Tests Past 24 Hrs 06/09/18 06/09/18 05:05 05:05 WBC 7.6 RBC 4.68 Hgb 13.7 Hct 38.9 MCV 83.1 MCH 29.3 MCHC 35.2 RDW 12.4 RDW Differential 37.4 Plt Count 309 MPV 9.6 Immature Gran % (Auto) 0.400 Neut % (Auto) 56.7 Lymph % (Auto) 30.6 [place] % (Auto) 12.3 H Eos % (Auto) 0.0 Baso % (Auto) 0.0 Absolute Neuts (auto) 4.3 Absolute Lymphs (auto) 2.31 Total Counted Not Reportable Sodium 128 L Potassium 3.9 Chloride 92 L Carbon Dioxide 27.0 Anion Gap 9 BUN 12 Creatinine 0.63 Estim Creat Clear Calc 88.90 Est GFR (MDRD) Af Amer 123 Est GFR (MDRD) Non-Af 102 BUN/Creatinine Ratio 19.0 Glucose 88 Calcium 9.0 Medical Necessity - Tobacco Use Smoking Status: Never smoker Tobacco Use: Non-smoker - has been exposed to second hand smoke Assessment/Plan All Active Problems Hyponatremia (Acute) 1. Hyponatremia 2/2 SIADH - she appears euvolemic. This was recently diagnosed as per elevated urine osmolality, urine sodium 116. Nephrology following. Improved. Continue Salt tabs, lasix, fluid restriction. CT abdomen/pelvis and chest negative for mass. Consider CT brain with Headache and tongue sensation/taste changes. Renal function is normal. 2. Hypothyroid -recent normal thyroid studies. continue synthroid 3. Hx diverticulitis with prior colon resection 4. Hx benign ovarian tumor s/p BL complete hysterectomy. DVT ppx: lovenox DC planning: home when sodium improved. This patient was seen by Lang Herrera PA-C under the supervision of Dr. Lacy <Lana Lacy - Last Filed: 06/09/18 16:18> - Physical Exam Vital Signs Temp Pulse Resp BP Pulse Ox 98.2 F 85 16 139/90 H 100 06/09/18 10:15 06/09/18 11:00 06/09/18 10:15 06/09/18 10:15 06/09/18 10:15 Oxygen Delivery Method Room Air Weight: 165 lb 12.602 oz Body Mass Index (BMI) 26.7 Intake and Output for Last 24 Hours 06/07/18 06/08/18 06/09/18 23:59 23:59 23:59 Intake Total 480 / 480 1220 / 1220 Output Total 130 / 130 1800 / 1800 Balance 350 / 350 -580 / -580 Laboratory Tests Past 24 Hrs 06/09/18 06/09/18 05:05 05:05 WBC 7.6 RBC 4.68 Hgb 13.7 Hct 38.9 MCV 83.1 MCH 29.3 MCHC 35.2 RDW 12.4 RDW Differential 37.4 Plt Count 309 MPV 9.6 Immature Gran % (Auto) 0.400 Neut % (Auto) 56.7 Lymph % (Auto) 30.6 [place] % (Auto) 12.3 H Eos % (Auto) 0.0 Baso % (Auto) 0.0 Absolute Neuts (auto) 4.3 Absolute Lymphs (auto) 2.31 Total Counted Not Reportable Sodium 128 L Potassium 3.9 Chloride 92 L Carbon Dioxide 27.0 Anion Gap 9 BUN 12 Creatinine 0.63 Estim Creat Clear Calc 88.90 Est GFR (MDRD) Af Amer 123 Est GFR (MDRD) Non-Af 102 BUN/Creatinine Ratio 19.0 Glucose 88 Calcium 9.0 Assessment/Plan Patient seen by Lang Herrera PA-C under my supervision Patient seen and examined. She complains of some nausea and mild headache. Review of systems otherwise negative. Sodium is up to 128. CT abdomen and pelvis were negative for any possible malignancy. o/e: Vital Signs Height 5 ft 6 in Weight: 165 lb 12.602 oz Weight in Pounds 165.8 lbs Pulse Ox 100 Temperature 98.2 F Pulse Rate 85 Respiratory Rate 16 Blood Pressure 139/90 Blood Pressure Position Supine General: Alert, Oriented x3, Cooperative HEENT: Atraumatic, PERRLA, EOMI, Normocephalic Neck: Supple, No JVD, Negative Carotid Bruits Lungs: Clear to auscultation, Normal air movement Cardiovascular: Regular rate, No murmurs Abdomen: Bowel Sounds Present, Soft, Non Tender Extremities: No edema, Capillary Refill Less than 3 Seconds Skin: No rashes, No breakdown Musculoskeletal: No Tenderness to Palpation of Joints or Extremities Neurological: Cranial nerves II-XII grossly intact Psych/Mental Status: Normal Affect, Appropriate, Alert and oriented to time, place, person, mood and affect Plan is to continue the lasix and fluid restriction. Continue salt tablets. Nephrology on board. Rest of management as per Lang Herrera PA-C's note, which I have reviewed and agree with. Code Visit Inpatient E&M: [id number] Subs Hosp L2
[2018-06-09] MEDS: Ondansetron 4 MG/2 ML Vial IV (13:22)
[2018-06-09] MEDS: Polyethylene Glycol 3350 17 GM PACKET PO (18:22)
[2018-06-09] MEDS: 0.9% NaCl Peripheral Flush Adult/Peds IV (21:57)
[2018-06-10] VITALS (10 sets, daily range): BP systolic 118–137; BP diastolic 76–89; PULSE 78–97; RESP 16; TEMP 36.6–37; O2SAT 98–100
[2018-06-10] MEDS: Levothyroxine 75 MCG Tablet PO (06:12)
[2018-06-10] MEDS: SODIUM CHLORIDE 1 GM TABLET PO ×3 (06:12→20:33)
[2018-06-10 06:22] LABS: Anion Gap 7 (5-15); BUN 12 mg/dL (7-18); BUN/Creat Ratio 17.1 RATIO (10-20); Chloride 90 mmol/L (98-107); EST Glomerular Filtration Rate 91 mL/min (>60); Est Glom Filt Rate - Afr Amer 110 mL/min (>60); Estimated Creatinine Clearance 80.01 ml/min; Glucose 95 mg/dL (74-106); Potassium 3.7 mmol/L (3.5-5.1); Sodium Level 125 mmol/L (136-145)
[2018-06-10] MEDS: Furosemide 40 MG Tablet PO ×2 (09:50→18:38)
[2018-06-10] MEDS: Aspirin 81 MG TAB.CHEW PO (09:50)
[2018-06-10] MEDS: Multivitamins,Ther W-Minerals Tablet 1 TABLET PO (09:50)
[2018-06-10] MEDS: Enoxaparin 40 MG/0.4 ML Syringe SC (09:51)
[2018-06-10] MEDS: Acetaminophen 325 MG Tablet 650 MG PO (09:56)
[2018-06-10] MEDS: 0.9% NaCl Peripheral Flush Adult/Peds IV (10:43)
[2018-06-10] MEDS: Ondansetron 4 MG/2 ML Vial IV ×2 (10:43→16:38)
--- NOTE | 2018-06-10 12:27 | PCM.PN.REN ---
Subjective: Pt is doing well - Physical Exam General: Alert, Oriented x3 HEENT: Atraumatic Oral: Moist Mucosa Neck: Supple, No JVD Lungs: Clear to auscultation, Normal air movement, No rhonchi, No wheeze Cardiovascular: Regular rate, Regular Rhythm, Normal S1, Normal S2 Abdomen: Bowel Sounds Present, Soft, Non Tender Extremities: No clubbing, No cyanosis, No edema Skin: No rashes Musculoskeletal: No Tenderness to Palpation of Joints or Extremities Lymphatic: No Cervical, Supraclavicular, or Inguinal Adenopathy Neurological: Cranial nerves II-XII grossly intact, Neuro grossly intact Psych/Mental Status: Normal Affect Vital Signs Temp Pulse Resp BP Pulse Ox 97.9 F 92 16 137/89 H 98 06/10/18 09:41 06/10/18 09:41 06/10/18 09:41 06/10/18 09:41 06/10/18 09:41 Oxygen Delivery Method Room Air Weight: 75.2 kg Body Mass Index (BMI) 26.7 Intake and Output for Last 24 Hours 06/08/18 06/09/18 06/10/18 23:59 23:59 23:59 Intake Total 480 / 480 1480 / 1480 200 / 200 Output Total 130 / 130 2300 / 2300 950 / 950 Balance 350 / 350 -820 / -820 -750 / -750 Laboratory Tests Past 24 Hrs 06/10/18 05:10 Sodium 125 L Potassium 3.7 Chloride 90 L Carbon Dioxide 28.0 Anion Gap 7 BUN 12 Creatinine 0.70 Estim Creat Clear Calc 80.01 Est GFR (MDRD) Af Amer 110 Est GFR (MDRD) Non-Af 91 BUN/Creatinine Ratio 17.1 Glucose 95 Calcium 9.0 Medical Necessity - Tobacco Use Smoking Status: Never smoker Tobacco Use: Non-smoker - has been exposed to second hand smoke Assessment/Plan All Active Problems Hyponatremia (Acute) 1-normovolemic hyponatremia. New onset. Etiology was proven to be from SIADH from previous admission when urine sodium was 116 and urine osmolarity was 558.last trend 128->125 Will change fluid restriction to 800 cc. Continue salt tablets 1 g 3 times daily. Will increase lasix to 40 mg PO BID Regarding the etiology of SIADH still unclear. Patient has been losing weight. Patient states she has lost 15 pounds in the last month. CAT scan of the pelvis/abdomen and chest with IV contrast is negative for mass . 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 Patient said the mass was not malignant. Patient has not been on SSRI. No need for 3% sodium chloride. Please avoid hydrochlorothiazide. Avoid SSRI. Check sodium level in a.m.. Renal team will continue to follow d/w Dr. Lacy
--- NOTE | 2018-06-10 13:16 | PN_ITS ---
<Lang Herrera - Last Filed: 06/10/18 13:14> Subjective: Pt had increased PO intake yesterday and sodium declined overnight. She continues to have nausea without vomiting and feels she has not improved. Tongue numbness and taste change continues. No peripheral edema. No CP/palp/SOB. No issues urinating. No diarrhea. - Physical Exam General: Alert, Oriented x3, Cooperative HEENT: Atraumatic, PERRLA, EOMI, Normocephalic Neck: Supple, No JVD, Negative Carotid Bruits Lungs: Clear to auscultation, Normal air movement Cardiovascular: Regular rate, No murmurs Abdomen: Bowel Sounds Present, Soft, Non Tender Extremities: No edema, Capillary Refill Less than 3 Seconds Skin: No rashes, No breakdown Musculoskeletal: No Tenderness to Palpation of Joints or Extremities Neurological: Cranial nerves II-XII grossly intact Psych/Mental Status: Normal Affect, Appropriate, Alert and oriented to time, place, person, mood and affect Vital Signs Temp Pulse Resp BP Pulse Ox 97.9 F 92 16 137/89 H 98 06/10/18 09:41 06/10/18 09:41 06/10/18 09:41 06/10/18 09:41 06/10/18 09:41 Oxygen Delivery Method Room Air Weight: 165 lb 12.602 oz Body Mass Index (BMI) 26.7 Intake and Output for Last 24 Hours 06/08/18 06/09/18 06/10/18 23:59 23:59 23:59 Intake Total 480 / 480 1480 / 1480 590 / 590 Output Total 130 / 130 2300 / 2300 1650 / 1650 Balance 350 / 350 -820 / -820 -1060 / -1060 Laboratory Tests Past 24 Hrs 06/10/18 05:10 Sodium 125 L Potassium 3.7 Chloride 90 L Carbon Dioxide 28.0 Anion Gap 7 BUN 12 Creatinine 0.70 Estim Creat Clear Calc 80.01 Est GFR (MDRD) Af Amer 110 Est GFR (MDRD) Non-Af 91 BUN/Creatinine Ratio 17.1 Glucose 95 Calcium 9.0 Medical Necessity - Tobacco Use Smoking Status: Never smoker Tobacco Use: Non-smoker - has been exposed to second hand smoke Assessment/Plan All Active Problems Hyponatremia (Acute) 1. Hyponatremia 2/2 SIADH - she appears euvolemic. Increased PO intake yesterday with worsening of Na. 800 cc fluid restriction started. Unfortunately we do not have tolvaptan available here. Renal on board. 2. Hypothyroid -recent normal thyroid studies. continue synthroid 3. Hx diverticulitis with prior colon resection 4. Hx benign ovarian tumor s/p BL complete hysterectomy. DVT ppx: lovenox DC planning: home when sodium improved. This patient was seen by Lang Herrera PA-C under the supervision of Dr. Lacy <Lana Lacy - Last Filed: 06/10/18 14:50> - Physical Exam Vital Signs Temp Pulse Resp BP Pulse Ox 97.9 F 97 16 137/89 H 98 06/10/18 09:41 06/10/18 11:00 06/10/18 09:41 06/10/18 09:41 06/10/18 09:41 Oxygen Delivery Method Room Air Weight: 165 lb 12.602 oz Body Mass Index (BMI) 26.7 Intake and Output for Last 24 Hours 06/08/18 06/09/18 06/10/18 23:59 23:59 23:59 Intake Total 480 / 480 1480 / 1480 590 / 590 Output Total 130 / 130 2300 / 2300 1650 / 1650 Balance 350 / 350 -820 / -820 -1060 / -1060 Laboratory Tests Past 24 Hrs 06/10/18 05:10 Sodium 125 L Potassium 3.7 Chloride 90 L Carbon Dioxide 28.0 Anion Gap 7 BUN 12 Creatinine 0.70 Estim Creat Clear Calc 80.01 Est GFR (MDRD) Af Amer 110 Est GFR (MDRD) Non-Af 91 BUN/Creatinine Ratio 17.1 Glucose 95 Calcium 9.0 Assessment/Plan Patient seen under my superivision by Lang Herrera PA-C She still complains of mild nausea, but no vomiting. Review of systems was otherwise negative. Labs and vitals reviewed. Sodium is down to 125 today. o/e; Vital Signs Height 5 ft 6 in Weight: 165 lb 12.602 oz Weight in Pounds 165.8 lbs Pulse Ox 98 Temperature 97.9 F Pulse Rate 97 Respiratory Rate 16 Blood Pressure 137/89 Blood Pressure Position Supine General: Alert, Oriented x3, Cooperative HEENT: Atraumatic, PERRLA, EOMI, Normocephalic Neck: Supple, No JVD, Negative Carotid Bruits Lungs: Clear to auscultation, Normal air movement Cardiovascular: Regular rate, No murmurs Abdomen: Bowel Sounds Present, Soft, Non Tender Extremities: No edema, Capillary Refill Less than 3 Seconds Skin: No rashes, No breakdown Musculoskeletal: No Tenderness to Palpation of Joints or Extremities Neurological: Cranial nerves II-XII grossly intact Psych/Mental Status: Normal Affect, Appropriate, Alert and oriented to time, place, person, mood and affect Plan is to reduce fluid she is restricted to every 24 hours to 800cc. Tolvaptan not available in [facility]. Will increase lasix to 40mg bid. Continue salt tablets. Discussed with nephrology. CT of the chest, abdomen and pelvis were negative for any possible malignancy that could be causing SIADH. For possible discharge tomorrow if she remains stable and sodium level increases. Rest of management as per Lang Herrera PA-C's note, which I have reviewed and agree with. Code Visit Inpatient E&M: [id number] Subs Hosp L2
--- NOTE | 2018-06-10 13:57 | CASEMGMT ---
Readmission chart review: Pt was initially admitted 06/03/18-06/05/18 and diagnosed with SIADH at that time. See CM assessment completed by Jeri MARTINEZ CM on 06/03/18. Pt returned for worsening of sx's on 06/08/18 and was placed initially as OBS but Na is worsening again at this time as well as pt's sx's. Nephrology would like to prescribe Tolvaptan but that is currently not available at [facility] at this time. CM to follow for any further discharge planning/needs. Willis MARTINEZ CM
[2018-06-11 03:00] VITALS: BP 131/78; PULSE 89; PULSE 93; RESP 18; TEMP 36.7; O2SAT 100
[2018-06-11] MEDS: Levothyroxine 75 MCG Tablet PO (06:33)
[2018-06-11] MEDS: SODIUM CHLORIDE 1 GM TABLET PO (06:33)
[2018-06-11 07:28] LABS: Anion Gap 11 (5-15); BUN 15 mg/dL (7-18); BUN/Creat Ratio 19.8 RATIO (10-20); Calcium,Total 9.4 mg/dL (8.5-10.1); Chloride 89 mmol/L (98-107); Creatinine, Serum 0.76 mg/dL (0.55-1.02); EST Glomerular Filtration Rate 83 mL/min (>60); Est Glom Filt Rate - Afr Amer 100 mL/min (>60); Estimated Creatinine Clearance 73.69 ml/min; Glucose 92 mg/dL (74-106); Potassium 3.5 mmol/L (3.5-5.1); Sodium Level 129 mmol/L (136-145)
[2018-06-11 07:33] VITALS: PULSE 94
[2018-06-11] MEDS: Aspirin 81 MG TAB.CHEW PO (08:32)
[2018-06-11] MEDS: Multivitamins,Ther W-Minerals Tablet 1 TABLET PO (08:32)
[2018-06-11 09:40] VITALS: PULSE 102; RESP 16; O2SAT 97
[2018-06-11 09:46] VITALS: BP 118/69; PULSE 102; RESP 16; TEMP 36.7; O2SAT 97
[2018-06-11] MEDS: Enoxaparin 40 MG/0.4 ML Syringe SC (10:10)
[2018-06-11] MEDS: Furosemide 40 MG Tablet PO (10:10)
[2018-06-11 11:05] VITALS: PULSE 97
--- NOTE | 2018-06-11 11:14 | PCM.DC ---
You will use the following diet at home:: Fluid restricted (specify 2000 mls, 1500 mls) - 800 mls free water per day Your food should be the consistency of: Regular Your liquids should be the consistency of: Regular/Thin Discharge Activity: Return to Normal Activity Allergies/Adverse Reactions: Allergies cetirizine [From [facility]] Allergy (Verified 06/01/18 13:53) Unknown Medications to take at Discharge Aspirin [Aspirin, Baby] 81 mg PO DAILY@0800 11/16/17 Levothyroxine Sodium 75 mcg PO DAILY 06/01/18 Multivit-Min/Iron/Folic/Lutein [Centrum Silver Women Tablet] 1 tab PO DAILY 06/01/18 Furosemide [Lasix] 40 mg PO BIDLX #60 tablet 06/11/18 Sodium Chloride 1 gm PO TID #90 tablet 06/11/18 The following prescriptions were given: Furosemide [Lasix] 40 mg PO BIDLX #60 tablet Sodium Chloride 1 gm PO TID #90 tablet Orders to be completed after discharge: Basic Metabolic Profile (BMP) Time Frame: 3 Days, Location: Laboratory Primary Care Physician: Yasir Smith MD [Primary Care Provider] - Please follow up with your Primary Care Physician in: 1 weeks Test Results: Test results from this visit will be discussed in further detail at your follow-up appointment, if applicable. Please Follow Up With: Collins lBake MD When: 1-2 weeks Proposed Discharge Date: 06/11/18
--- NOTE | 2018-06-11 11:17 | DCINST_ITS ---
You will use the following diet at home:: Fluid restricted (specify 2000 mls, 1500 mls) - 800 mls free water per day Your food should be the consistency of: Regular Your liquids should be the consistency of: Regular/Thin Discharge Activity: Return to Normal Activity Allergies/Adverse Reactions: Allergies [facility] Allergy (Verified 06/01/18 13:53) Unknown Medications to take at Discharge Aspirin [Aspirin, Baby] 81 mg PO DAILY@0800 11/16/17 Levothyroxine Sodium 75 mcg PO DAILY 06/01/18 Multivit-Min/Iron/Folic/Lutein [Centrum Silver Women Tablet] 1 tab PO DAILY 06/01/18 Furosemide [Lasix] 40 mg PO BIDLX #60 tablet 06/11/18 Sodium Chloride 1 gm PO TID #90 tablet 06/11/18 The following prescriptions were given: Furosemide [Lasix] 40 mg PO BIDLX #60 tablet Sodium Chloride 1 gm PO TID #90 tablet Orders to be completed after discharge: Basic Metabolic Profile (BMP) Time Frame: 3 Days, Location: Laboratory Primary Care Physician: Yasir Smith MD [Primary Care Provider] - Please follow up with your Primary Care Physician in: 1 weeks Test Results: Test results from this visit will be discussed in further detail at your follow- up appointment, if applicable. Please Follow Up With: Collins Blake MD When: 1-2 weeks Proposed Discharge Date: 06/11/18
--- NOTE | 2018-06-11 13:37 | DS.PCM_ITS ---
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 CT/Chest WITH Contrast IMPRESSION: Findings suggesting mild degree of scarring in the anterior medial aspect of the right middle lobe as well as the medial aspect of the lingular segment of the left upper lobe. Consultations: Nephrology- [facility] Operations: None Procedures: None Summary of Care Provided: Hospital course: The patient is a 58 year old F past medical history of hypothyroidism, diverticulitis with prior colon resection, benign ovarian mass status post complete hysterectomy, who was recently admitted to the hospital and diagnosed with SIADH as per elevated urine osmolality and urine sodium of 116. She represented to the emergency room with return of her symptoms-the symptoms include nausea, fatigue, and tongue numbness with a change in taste sensation. Her sodium had declined to 125 despite home fluid restriction and salt tablets. Her renal function was stable. She was readmitted to the PCU and placed on telemetry. Nephrology was consulted. A CT of the chest and abdomen were obtained to look for malignancy in these were negative. She appeared euvolemic throughout her stay. She was placed on fluid restriction, Lasix, and salt tablets. She initially improved, however she had an increased oral intake the following day and her SIADH worsened. She was placed on an even greater fluid restriction-800 cc/day. With this her sodium increased and her symptoms improved dramatically by the following day. Is felt that she was stable for discharge, she was discharged in stable condition advised to follow-up with her PCP in 1 week, and to follow-up with nephrology in 1-2 weeks. I advised her to have her BMP checked in 3 days. She will continue Lasix, salt tablets, and 800 cc fluid restriction per day. This patient was seen by Lang Herrera PA-C under the supervision of Doctor Phi. [] - Physical Exam General: Alert, Oriented x3, Cooperative HEENT: Atraumatic, PERRLA, EOMI, Normocephalic Neck: Supple, No JVD, Negative Carotid Bruits Lungs: Clear to auscultation, Normal air movement Cardiovascular: Regular rate, No murmurs Abdomen: Bowel Sounds Present, Soft, Non Tender Extremities: No edema, Capillary Refill Less than 3 Seconds Skin: No rashes, No breakdown Musculoskeletal: No Tenderness to Palpation of Joints or Extremities Neurological: Cranial nerves II-XII grossly intact Psych/Mental Status: Normal Affect, Appropriate Vital Signs Temp Pulse Resp BP Pulse Ox 98.1 F 97 16 118/69 97 06/11/18 09:46 06/11/18 11:05 06/11/18 09:46 06/11/18 09:46 06/11/18 09:46 Oxygen Delivery Method Room Air Weight: 165 lb 12.602 oz Body Mass Index (BMI) 26.7 Intake and Output for Last 24 Hours 06/09/18 06/10/18 06/11/18 23:59 23:59 23:59 Intake Total 1480 / 1480 930 / 930 120 / 120 Output Total 2300 / 2300 1950 / 1950 700 / 700 Balance -820 / -820 -1020 / -1020 -580 / -580 Laboratory Tests Past 24 Hrs 06/11/18 05:38 Sodium 129 L Potassium 3.5 Chloride 89 L Carbon Dioxide 29.0 Anion Gap 11 BUN 15 Creatinine 0.76 Estim Creat Clear Calc 73.69 Est GFR (MDRD) Af Amer 100 Est GFR (MDRD) Non-Af 83 BUN/Creatinine Ratio 19.8 Glucose 92 Calcium 9.4 Discharge Diet: - - Fluid restriction of 800 cc/day Discharge Activity: Return to Normal Activity Home Medications: Medications to take at Discharge Aspirin [Aspirin, Baby] 81 mg PO DAILY@0800 11/16/17 Levothyroxine Sodium 75 mcg PO DAILY 06/01/18 Multivit-Min/Iron/Folic/Lutein [Centrum Silver Women Tablet] 1 tab PO DAILY 06/01/18 Furosemide [Lasix] 40 mg PO BIDLX #60 tablet 06/11/18 Sodium Chloride 1 gm PO TID #90 tab 06/11/18 Following Prescrptions Were Given to Patient: Furosemide [Lasix] 40 mg PO BIDLX #60 tablet Sodium Chloride 1 gm PO TID #90 tab Other Amb Orders: Basic Metabolic Profile (BMP) Time Frame: 3 Days, Location: Laboratory Primary Care Physician: Yasir Smith MD [Primary Care Provider] - Please follow up with your Primary Care Physician in: 1 weeks Please Follow Up With: Collins Blake MD When: 1-2 weeks Please Follow Up With: Yasir Smith MD When: 1 week Disposition: Home Minutes spent on discharge:: 35 Patient Condition:: Stable Medical Necessity - Tobacco Use Smoking Status: Never smoker Tobacco Use: Non-smoker - has been exposed to second hand smoke Meaningful Use Info Meaningful Use Diagnoses (Choose all that apply): None applicable <Heraclio Yip - Last Filed: 06/11/18 13:53> Discharge Date and Diagnosis - Secondary Discharge Diagnosis Chronic Problems History of ureter stent (Chronic) Hypothyroid (Chronic) GERD (gastroesophageal reflux disease) (Chronic) Diverticulitis (Chronic) Hospital Course and Treatment Operations: None Procedures: None Summary of Care Provided: Patient seen and examined independently. Data reviewed. I agree with the above note by the physician preschool assistant teacher. The patient is a 58 year old F presents for the 2nd time with month with nausea. Again, she was hyponatremic. [place] to be due to SIADH. Nephrology was consulted. With fluid restriction, lasix and salt tablets, her sodium improved. She will continue with salt tablets and fluid restriction of 800cc/day. She will follow up with nephrology and have outpt labs.[] - Physical Exam General: Alert, Cooperative HEENT: Atraumatic, Normocephalic Lungs: Clear to auscultation, Normal air movement, No rhonchi, No wheeze Cardiovascular: Regular rate, Regular Rhythm, Normal S1, Normal S2 Abdomen: Bowel Sounds Present, Soft, Non Tender, Non-Distended Vital Signs Temp Pulse Resp BP Pulse Ox 36.7 C 97 16 118/69 97 06/11/18 09:46 06/11/18 11:05 06/11/18 09:46 06/11/18 09:46 06/11/18 09:46 Oxygen Delivery Method Room Air Weight: 75.2 kg Body Mass Index (BMI) 26.7 Intake and Output for Last 24 Hours 01/06/10/18 06/11/18 23:59 23:59 23:59 Intake Total 1480 / 1480 930 / 930 120 / 120 Output Total 2300 / 2300 1950 / 1950 700 / 700 Balance -820 / -820 -1020 / -1020 -580 / -580 Laboratory Tests Past 24 Hrs 06/11/18 05:38 Sodium 129 L Potassium 3.5 Chloride 89 L Carbon Dioxide 29.0 Anion Gap 11 BUN 15 Creatinine 0.76 Estim Creat Clear Calc 73.69 Est GFR (MDRD) Af Amer 100 Est GFR (MDRD) Non-Af 83 BUN/Creatinine Ratio 19.8 Glucose 92 Calcium 9.4 Discharge Diet: - Discharge Activity: Return to Normal Activity Disposition: Home Minutes spent on discharge:: 35 Patient Condition:: Good Medical Necessity - Tobacco Use Smoking Status: Never smoker Tobacco Use: Non-smoker Meaningful Use Info Meaningful Use Diagnoses (Choose all that apply): None applicable Code Visit Inpatient E&M: 39797 Disch Hosp
--- OUTSIDE RECORDS SUMMARY | 2018-08-10 01:55 | XMS RPT_ITS ---
:1960 Author Organization OHIP Support Name Relationship Address Phone HELDER, BEBE Unavailable [address] + [place] [address] CHANDAN, NELA Unavailable [address] + [place] [address] UE Unavailable Unavailable Unavailable HELDER, BEEB Unavailable [address] + [place] [address] CHANDAN, NELA Unavailable [address] + [place] [address] UE Unavailable Unavailable Unavailable HELDER, BEBE Unavailable [address] + [place] [address] CHANDAN, NELA Unavailable [address] + [place] [address] UE Unavailable Unavailable Unavailable HELDER, BEBE Unavailable [address] + [place] [address] CHANDAN, NELA Unavailable [address] + [place] [address] UE Unavailable Unavailable Unavailable HELDER, BEBE Unavailable [address] + [place] [address] CHANDAN, NELA Unavailable [address] + [place] [address] UE Unavailable Unavailable Unavailable HELDER, BEBE Unavailable [address] + [place] [address] CHANDAN, NELA Unavailable [address] + [place] [address] UE Unavailable Unavailable Unavailable HELDER, BEBE Unavailable [address] + [place] [address] CHANDAN, NELA Unavailable [address] + [place] [address] UE Unavailable Unavailable Unavailable HELDER, BEBE Unavailable [address] + [place] [address] CHANDAN, NELA Unavailable [address] + [place] [address] UE Unavailable Unavailable Unavailable HELDER, BEBE Unavailable [address] + [place] [address] CHANDAN, NELA Unavailable [address] + [place] [address] UE Unavailable Unavailable Unavailable HELDER, BEBE Unavailable [address] + [place] [address] CHANDAN, NELA Unavailable [address] + [place] [address] UE Unavailable Unavailable Unavailable HELDER, BEBE Unavailable [address] + [place] [address] CHANDAN, NELA Unavailable [address] + [place] [address] UE Unavailable Unavailable Unavailable HELDER, BEBE Unavailable [address] + [place] [address] CHANDAN, NELA Unavailable [address] + [place] [address] UE Unavailable Unavailable Unavailable HELDER, BEBE Unavailable [address] + [place] [address] CHANDAN, NELA Unavailable [address] + [place] [address] UE Unavailable Unavailable Unavailable HELDER, BEBE Unavailable [address] + [place] [address] CHANDAN, NELA Unavailable [address] + [place] [address] UE Unavailable Unavailable Unavailable HELDER, BEBE Unavailable [address] + [place] [address] CHANDAN, NELA Unavailable [address] + [place] [address] UE Unavailable Unavailable Unavailable HELDER, BEBE Unavailable [address] + [place] [address] CHANDAN, NELA Unavailable [address] + [place] [address] UE Unavailable Unavailable Unavailable HELDER, BEBE Unavailable [address] + [place] [address] CHANDAN, NELA Unavailable [address] + [place] [address] UE Unavailable Unavailable Unavailable HELDER, BEBE Unavailable [address] + [place] [address] CHANDAN, NELA Unavailable [address] + [place] [address] UE Unavailable Unavailable Unavailable Care Team Providers Name Role Phone LALA HENRY Attending Unavailable LALA HENRY Referring Unavailable RAUL CLIFTON Attending Unavailable LALA HENRY Referring Unavailable RAUL CLIFTON Referring Unavailable FELA BONDS (PA) Referring Unavailable GHAZAL OSBORN (PA) Attending Unavailable YUNIEL LAND (TELEPHONE OPERATOR) Referring Unavailable ANIKA HDZ (TELEPHONE OPERATOR) Attending Unavailable LOLA GRACE Attending Unavailable PRIYANKA SMITH Referring Unavailable RAUL CLIFTON Attending Unavailable ERIKA VALADEZ Attending Unavailable ERIKA VALADEZ Referring Unavailable LOLA GRACE Attending Unavailable PRIYANKA SMITH Referring Unavailable ERIKA VALADEZ Attending Unavailable BRODERICK OHARA Attending Unavailable LOLA GRACE Referring Unavailable ERIKA VALADEZ Attending Unavailable RAUL CLIFTON Attending Unavailable RAUL CLIFTON Referring Unavailable ERIKA VALADEZ Referring Unavailable ERIKA VALADEZ Attending Unavailable CESAR GRACEA FORTINO Admitting Unavailable LOLA GRACE Attending Unavailable LOLA GRACE Referring Unavailable BRODERICK OHARA Attending Unavailable PRIYANKA SMITH Referring Unavailable BRODERICK OHARA Attending Unavailable PRIYANKA SMITH Referring Unavailable HARSHA GLASS Referring Unavailable HARSHA GLASS Referring Unavailable PRIYANKA SMITH Attending Unavailable PRIYANKA SMITH Attending Unavailable PRIYANKA SMITH Referring Unavailable RAUL CLIFTON Admitting Unavailable RAUL CLIFTON Attending Unavailable RAUL CLIFTON Referring Unavailable RAUL CLIFTON Referring Unavailable RAUL CLIFTON Referring Unavailable RAUL CLIFTON Referring Unavailable Priyanka Smith Primary Care Unavailable Ana Olvera Attending Unavailable [facility] Unavailable Sementi, Monica Admitting Unavailable KittoeJordan Attending Unavailable Bakhous, Aziz Consulting Unavailable Sementi, Monica Admitting Unavailable Lang Herrera Attending Unavailable [facility] Care Unavailable Sementi, Monica Consulting Unavailable Sementi, Monica Admitting Unavailable KittoeJordan Attending Unavailable [facility] Care Unavailable Kittoe, Jordan Consulting Unavailable Sementi, Monica Admitting Unavailable Kittoe, Jordan Attending Unavailable [facility] Care Unavailable Bakhous, Aziz Consulting Unavailable Kittoe, Jordan Consulting Unavailable Sementi, Monica Admitting Unavailable Kittoe, Jordan Attending Unavailable [facility] Care Unavailable Bakhous, Aziz Consulting Unavailable Kittoe, Jordan Consulting Unavailable [facility] Care Unavailable Matt Pak Attending Unavailable Sementi, Monica Admitting Unavailable KitjaceJordan Attending Unavailable [facility] Care Unavailable Bakhous, Aziz Consulting Unavailable Kittoe, Jordan Consulting Unavailable [facility] Unavailable Koram, Lana Althea Admitting Unavailable Bakhous, Aziz Consulting Unavailable Heraclio Yip Attending Unavailable Koram, Lana Althea Admitting Unavailable Koram, Lana Althea Attending Unavailable [facility] Care Unavailable Bakhous, Aziz Consulting Unavailable Koram, Lana Althea Consulting Unavailable Koram, Lana Althea Admitting Unavailable Lang Herrera Attending Unavailable [facility] Care Unavailable Bakhous, Aziz Consulting Unavailable Koram, Lana Althea Consulting Unavailable Koram, Lana Althea Admitting Unavailable JavierLang tom Attending Unavailable [facility] Care Unavailable Bakhous, Aziz Consulting Unavailable Koram, Lana Althea Consulting Unavailable Koram, Lana Althea Admitting Unavailable Lang Herrera Attending Unavailable [facility] Care Unavailable Bakhous, Aziz Consulting Unavailable Heraclio Yip Consulting Unavailable [facility] Care Unavailable Dk Warren Attending Unavailable Lola Grace Attending Unavailable Lola Grace Referring Unavailable [facility] Care Unavailable Broderick Ohara Admitting Unavailable Broderick Ohara Attending Unavailable Broderick Ohara Referring Unavailable [facility] Care Unavailable Lola Grace Attending Unavailable Broderick Ohara Referring Unavailable Priyanka Smith Primary Care Unavailable Jacek Barton Attending Unavailable Heraclio Toth Referring Unavailable PROBLEMS PROBLEMS DATE TYPE CONDITION / CODE ATTENDING STATUS SOURCE 05/30/2018 Active Hypo-osmolality and NA Active [place] hyponatremia / [facility] Main E87.1(ICD-10) [facility] Rep[facility] 05/28/2018 Active Other fatigue / NA Active [place] R53.83(ICD-10) [facility] Main [facility] 05/28/2018 Active Nausea / R11.0(ICD-10) NA Active [facility] Main [place] Rep[facility] 12/22/2017 Active Diverticulitis of [place] Active [place] intestine, part [place] Clinic Main unspecified, without [place] perforation or abscess Repository without bleeding / K57.92(ICD-10) 12/16/2017 Active Unknown / UNK(Unknown) NA Active [place] [facility] Other [facility] Rep[facility] 01/25/2018 Unknown R94.31 - Abnormal [place], Active [place] electrocardiogram [facility] [ECG] [EKG] / Hospital R94.31(ICD-10) Repository 12/13/2017 Active Unspecified ovarian NA Active [place] cyst, unspecified side Clinic Main / N83.209(ICD-10) [facility] 12/06/2017 Active Encounter for NA Active [place] screening mammogram Clinic Main for malignant neoplasm [place] of breast / Repository Z12.31(ICD-10) 11/25/2017 Active Unspecified ovarian NA Active [place] cyst, left side / Clinic Main N83.202(ICD-10) [facility] 11/23/2017 Active Other specified NA Active [place] postprocedural states Clinic Other / Z98.890(ICD-10) [facility] 10/13/2017 Active Unilateral 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 Clinic Other first carpometacarpal [place] joint, right hand / Repository M18.11(ICD-10) 10/01/2017 Active Hypothyroidism, NA Active [place] unspecified / Clinic Main E03.9(ICD-10) [facility] 11/01/2017 Active Abnormal levels of NA Active [place] other serum enzymes / Clinic Main R74.8(ICD-10) [facility] 10/01/2017 Active Encounter for other NA Active [place] preprocedural Clinic Main examination / [place] Z01.818(ICD-10) Repository 07/29/2017 Active Other specific NA Active [place] arthropathies, not Clinic Main elsewhere classified, [facility] left shoulder / Repository M12.812(ICD-10) PROCEDURES PROCEDURES No Procedure Records FoundRESULTS RESULTS EMERGENCY DEPARTMENT Observed: 06/12/2018 Status: F Source: [place] 4:18 PM [facility] [place] [facility] Medical Records Department [address] [place] [address] Emergency Department Summary 06/12/18 1233 MR#: [id number] Acct: [id number] Name: ASIA HAWLEY Rep #: [id number] : 1960 58 From: Dk Warren MD PCP: Priyanka Smith MD Status: REG ER - ER Visit Summary Date of Service: 06/12/18 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: Weakness, shaking, shortness of breath History of Present Illness: The patient is a 58 F with recurrent history of hyponatremia presents to the emergency department multiple complaints. Patient was just hospitalized this past week. She got discharged 2 days ago. 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 The etiology was uncertain. The patient was started on Lasix, salt tablets, and fluid restriction. She states that she is felt worse since her discharge. She has had tremulousness, increasing weakness, generalized malaise. She is also felt as if her heart was racing. She denies any fevers or chills. She denies any chest pain. She denies orthopnea. She is been urinating without issue. Physical Examination: Vital signs reviewed General: Well-nourished, well-developed Head: Normocephalic, atraumatic Eyes: Pupils equal and reactive, extraocular muscles intact Neck, supple, no lymphadenopathy Heart: Regular rate and rhythm Respiratory: No distress, clear bilaterally Abdomen: Soft, nontender, nondistended, no peritoneal signs Back: Nontender Extremities: Nontender, no edema, no cords Skin: Normal color no rash Neuro: Alert and oriented, no focal or lateralizing deficits Test Results: [] Emergency Department Course and Treatment: The patient presents with generalized weakness and tremulousness. She was recently started on high-dose Lasix and fluid restriction. I do suspect this is like electric abnormality. 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 With the patient's mild headache, I did obtain a head CT especially given her history of SIADH. This was within normal limits. Her EKG shows sinus tachycardia but no acute ischemic change. I do question some slight U waves. Patient is potassium is 3.1 and hemolyzed. My suspicion is that it is the Lasix that is driving her potassium down low. She was given oral potassium along with potassium replacement through the IV. On reevaluation, she is feeling markedly improved. At this time, I do feel that she is safe for outpatient therapy. I am going to start on potassium replacement. She does have follow-up this week with renal. She is comfortable with this plan of care. Treatment Plan: [] Disposition: Discharge Impression: Hypokalemia This note was generated with Padlocation software. It may contain incorrect words, spelling, and punctuation that were not noted in review of the chart prior to signing ED Disposition - Plan for ED Patient: 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: General Illness Instructions: ED Potassium Deficiency Prescriptions: Potassium Chloride [K-Tab ER] 20 meq PO BID #20 tablet.er Referrals: Priyanka Smith MD [Primary Care Provider] - What to do if you have Problems For any increased pain, shortness of breath, bleeding, nausea or vomiting, chest pain, or any unexpected problems, contact your Primary Care Provider. Call [facility] ([phone]) or report to the closest Emergency Room. Call 911 if necessary. 06/12/18 1621 <Electronically signed by Dk Warren MD> Date Dk Warren MD Cosigner Signature (If Indicated): Date CC: Priyanka Smith MD URINALYSIS, COMPLETE Collected: 06/12/2018 Status: F Source: [place] 3:00 PM [facility] Order Comment: How was Urine Obtained? CATHETER SPECIMEN TYPE CODE TESTS RESULT OUT OF RANGE REFERENCE UNITS LAB L400.3000 Yellow COLOR Normal Yellow LAB L400.3050 Clear Normal CLARITY Sl. Cloudy LAB L400.3200 Normal mg/dl Normal GLUCOSE, UR Normal LAB L400.3300 Negative mg/dL Normal BILIRUBIN URINE Negative LAB L400.3400 Negative mg/dl High 15 KETONE UR LAB L400.3465 1.002-1.030 Normal SP.GR. DIPSTX 1.020 LAB L400.3550 5.0 - 8.0 pH UR Normal 6.5 LAB L400.3600 Negative mg/dl PROT Normal DIPSTX Negative LAB L400.3700 Normal mg/dl High 8 UROBILI LAB L400.3750 Negative Normal NITRITE UR Negative LAB L400.3780 Negative /ul High 10 OCCULT BLOOD-UR LAB L400.3800 Negative /ul LEUK Normal ESTERASE Negative LAB L400.4050 0-5 /hpf WBC 0 Normal SEEN LAB L400.4100 0-5 /hpf Normal RBC-UA 0-5 SEEN LAB L400.4150 5-10 /hpf SQUAM Normal EPI 0-5 SEEN LAB L400.4300 None Seen /hpf 0 Normal BACTERIA SEEN LAB L400.4350 <or=2+ /hpf 0 Normal MUCUS, URINE SEEN LAB L400.4900 1+ Normal AMORPHOUS URATE Performed By: #### L400.0001 #### [facility] [address] [place], [address] CBC W/DIFF, AUTOMATED Collected: 06/12/2018 Status: F Source: [place] 1:05 PM [facility] [place] TYPE CODE TESTS RESULT OUT OF RANGE REFERENCE UNITS LAB L100.1000 4.4-11.0 K/mm3 Normal WBC 9.9 LAB L100.1200 4.2-5.4 M/mm3 Normal RBC 4.63 LAB L100.1300 12.0-15.0 g/dl Normal HGB 13.8 LAB L100.1400 37-47 % Normal HCT 38.0 LAB L100.1500 81-99 fL Normal MCV 82.1 LAB L100.1600 27.0-32.0 pg Normal MCH 29.8 LAB L100.1700 32-36 g/gl High MCHC 36.3 LAB L100.1810 11.6-14.6 % Normal RDW CV 12.0 LAB L100.1820 35.1-43.9 fl Normal RDW SD 35.6 LAB L100.1900 150-450 K/mm3 Normal PLT 364 LAB L100.2000 6.2-12.0 fl Normal MPV 9.7 LAB L100.2100 47-70 % High NEUT% 78.1 LAB L100.2200 19-41 % Low LY% 11.9 LAB L100.2300 0-10 % Normal MONO% 9.7 LAB L100.2400 0-5 % Normal EO% 0.0 LAB L100.2500 0-1 % Normal BASO% 0.0 LAB L100.2550 0.0-0.9 % Normal IM GRAN % 0.300 Result Comment: IG% - Immature Granulocytes (promyelocytes, myelocytes and metamyelocytes) > 1% indicates that a LEFT SHIFT is Present. LAB L100.2620 2.0-7.7 X10 3/uL Normal Absolute Neut 7.7 LAB L100.2720 0.83-4.51 X10 3/ul Normal Absolute Lymph 1.18 Performed By: #### L100.0100 #### [facility] [address] [place], [address] COMPREHENSIVE METABOLIC Collected: 06/12/2018 Status: F Source: [facility] 1:05 PM [facility] [place] TYPE CODE TESTS RESULT OUT OF RANGE REFERENCE UNITS LAB L501.0100 74-106 mg/dL High GLU 119 Result Comment: Fasting Glucose result from 100 to 125 mg/dL suggests IMPAIRED HOMEOSTASIS per A.D.A. criteria. Please note revised GLUCOSE reference range effective 2017. LAB L501.1000 7-18 mg/dL High BUN 23 LAB L501.1100 0.55-1.02 mg/dL Normal CREAT,SERUM 1.01 Result Comment: The validity of the calculated GFR AND GFRAA in patients over 70 years has not been determined. Clinical correlation is essential. LAB L501.1110 >60 mL/min Low EST GFR 59 Result Comment: Non- GFR Calc LAB L501.1115 >60 mL/min Normal EST GFR - AA 72 Result Comment: GFR Calc LAB L501.1255 ml/min Normal Estimated CRCL 55.45 LAB L501.1300 10-20 RATIO High BUN/CRE 22.8 LAB L501.1500 6.4-8. g/dL Normal 2 T PROT 7.7 LAB L501.1800 3.2-5. g/dL Normal 0 ALB 3.6 LAB L501.1950 2.2-4. g/dL Normal 2 GLOB 4.1 LAB L501.2000 0.9-2. RATIO Normal 4 A/G 0.9 LAB L501.2200 8.5-10 mg/dL Normal .1 CA 9.2 LAB L501.4100 15-37 U/L High AST 38 Result Comment: Slight Hemolysis, Result may be falsely increased. LAB L501.4305 45-117 U/L Normal ALK P 95 LAB L501.4405 13-56 U/L High ALT 58 LAB L501.4600 0.20-1.00 mg/dL High T BILI 1.10 LAB L501.5300 136-145 mmol/L Low NA 132 LAB L501.5600 3.5-5.1 mmol/L Low K 3.1 Result Comment: Slight Hemolysis, Result may be falsely increased. LAB L501.5900 98-107 mmol/L Low CL 92 LAB L501.6100 21.0-32.0 mmol/L Normal CO2 27.0 LAB L501.6200 5-15 Normal GAP 13 Performed By: #### L500.4050, L501.4010 #### [facility] [address] [place], [address] TROPONIN-I Collected: 06/12/2018 Status: F Source: [place] 1:05 PM [facility] [place] TYPE CODE TESTS RESULT OUT OF RANGE REFERENCE UNITS LAB L501.4010 <0.045 ng/mL Normal < 0.015 TROPONIN-I Result Comment: TROPONIN-I EXPECTED VALUES <0.045 Negative 0.045 - 0.590 Consistent with Cardiac Damage > OR = 0.600 Critical Value Not every elevated troponin is indicative of TN. These values should be used with clinical judgement in examining the patient's clinical picture for diagnosis. To establish a diagnosis of TN versus myocardial injury, there must be a demonstrated rise and/or fall in the troponin values, in addition to ischemic symptoms, EKG changes, new regional wall motion abnormality, and/or angiographical evidence. PLEASE NOTE: REFERENCE RANGES EDITED 17 Performed By: #### L500.4050, L501.4010 #### [facility] [address] [place], [address] LACTIC ACID Collected: 06/12/2018 Status: F Source: [place] 1:05 PM [facility] [place] Order Comment: Yes/No query for Sepsis Lactate Rule Y TYPE CODE TESTS RESULT OUT OF REFERENCE UNITS RANGE LAB L503.6005 0.4-2.0 mmol/L High LACTIC ACID 2.5 Result Comment: Critical Result(s) Called at: 13:46:32 06/12/2018 by: Ryan Price RN (ER). Performed By: #### L503.6005 #### [facility] [address] [place], [address] BRAIN/HEAD WITHOUT Observed: 06/12/2018 Status: F Source: [place] CONTRAST 12:25 PM [facility] [place] [facility] Imaging Services [address] [place] [address] Brain/Head without Contrast MR#: [id number] Acct: [id number] Name: CHANDANASIA M Rep #: [id number] : 1960 F 58 From: Pk Kirk DO PCP: Luis BHATT,Priyanka Status: REG ER Study: Brain/Head without Contrast Date of Exam: 06/12/18 Exam# [id number] Ordering Dr: Dk Warren MD STUDY: CT BRAIN WITHOUT CONTRAST REASON FOR EXAM: Female, 58 years old. Weakness RADIATION DOSAGE (If Supplied By Facility): CTDIvol = ( 44.99 ) mGy, DLP = ( 829.85 ) mGycm TECHNIQUE: Transaxial CT imaging of the brain was performed without administration of intravenous contrast material. Individualized dose optimization techniques were used for this CT. COMPARISON: None. FINDINGS: Normal soft tissue structures. Normal calvarium. Normal size ventricles and extra-axial spaces for the patient's age. Normal white matter tracts of the cerebral hemispheres. Normal basal ganglia and thalami. Normal brainstem. Normal cerebellum. There is no intracranial hemorrhage. There are no findings of an acute ischemic infarction. Normal visualized paranasal sinuses. CT/Brain/Head without Contrast IMPRESSION: Normal unenhanced CT scan of the brain. 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 [facility] Operations: None Procedures: None Summary of Care [...] Herrera PA-C under the supervision of Doctor Yip. [] - Physical Exam General: Alert, Oriented [...] with the above note by the physician physician assistant. The patient is a 58 year old F presents for the 2nd time with month with nausea. Again, she was hyponatremic. [place] to be due to SIADH. Nephrology was [...] applicable Code Visit Inpatient E AND M: [id number] Disch Hosp 06/11/18 1338 <Electronically signed by Lang EASLEY> Date Lang EASLEY 06/11/18 1354 <Electronically signed by Heraclio Yip DO> Cosigner Signature (if applicable): Date Heraclio Yip DO CC: KAUSHAL Herrera; Collins Blake MD; Heraclio Yip DO; Priyanka Smith MD Signed DISCHARGE INSTRUCTION Observed: 06/11/2018 Status: F Source: [place] 11:17 AM [facility] [place] [facility] Medical Records Department [address] [place] [address] Instructions for Home/Discharge Instructions 06/11/18 1114 MR#: [id number] Acct: [id number] Name: ASIA HAWLEY Rep #: [id number] : 1960 58 From: Lang EASLEY PCP: Priyanka Smith MD Status: ADM IN You will use the following diet at home:: Fluid restricted (specify 2000 mls, 1500 mls) - 800 mls free water per day Your food should be the consistency of: Regular Your liquids should be the consistency of: Regular/Thin Discharge Activity: Return to Normal Activity Allergies/Adverse Reactions: Allergies cetirizine [From [facility]] Allergy (Verified 06/01/18 13:53) Unknown Medications to [...] BASIC METABOLIC Collected: 06/11/2018 Status: F Source: [place] [facility] ([facility]) 5:38 AM [facility] TYPE CODE TESTS RESULT OUT OF [...] GAP 11 Performed By: #### L500.2500 #### [facility] [address] [place], [place] [address]all [facility] [place], [address] BASIC METABOLIC Collected: 06/10/2018 Status: F Source: [place] [facility] ([facility]) 5:10 AM [facility] [place] [place] TYPE CODE TESTS RESULT OUT OF [...] GAP 7 Performed By: #### L500.2500 #### [facility] [address] [place], [address] BASIC METABOLIC Collected: 06/09/2018 Status: F Source: [place] PROFILE ([facility]) 5:05 AM [facility] [place] [place] TYPE CODE TESTS RESULT OUT OF [...] GAP 9 Performed By: #### L500.2500 #### [facility] [place], [address] CBC W/DIFF, AUTOMATED Collected: 06/09/2018 Status: F Source: [place] 5:05 AM [facility] [place] TYPE CODE TESTS RESULT OUT OF [...] Lymph 2.31 Performed By: #### L100.0100 #### [facility] [address] [place], [address] HISTORY AND PHYSICAL Observed: 06/08/2018 Status: F Source: [place] EXAM 4:10 PM [facility] [place] [facility] Medical Records Department [address] [place] [address] History and Physical 06/08/18 1357 MR#: [id number] Acct: [id number] Name: ASIA HAWLEY Rep #: [id number] : 1960 58 From: Lana Lacy MD PCP: Priyanka Smith MD Status: ADM CRUZ Y Location: [place] [address] History of Present Illness Date of Admission: 06/08/18 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: hyponatremia The patient is a 58 year old F with a past medical history of GERD and hypothyroidism. She was admitted with a complaint of generalized fatigue over days duration. Patient was discharged about 3 days ago from [facility] after she was admitted and managed for [...] disease) (Chronic) Diverticulitis (Chronic) Allergies cetirizine [From [facility]] Allergy (Verified 06/01/18 13:53) Unknown Home Medications: [...] heparin Code Visit Inpatient E AND M: 51531 Init Hosp L3 06/08/18 1610 <Electronically signed by Lana Lacy MD> Date Lana Lacy MD Cosigner Signature: Date (if applicable) CC: Priyanka Smith MD; Lana Lacy MD Signed EMERGENCY DEPARTMENT Observed: 06/08/2018 Status: F Source: [place] SUMMARY 3:27 PM [facility] Medical Records Department [address] [place] [address] Emergency Department Summary 06/08/18 0721 MR#: [id number] Acct: [id number] Name: ASIA HAWLEY Rep #: [id number] : 1960 58 From: Guillermo Vu MD [...] edema. 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 5 out of 5. [...] uncertain etiology This note was generated with Nearbox dictation software. It may contain incorrect words, [...] your Primary Care Provider. Call [facility] ([phone]) or report to the closest Emergency Room. Call 911 if necessary. 06/08/18 1527 <Electronically signed by Guillermo Vu MD> Date Guillermo Vu MD Cosigner Signature (If Indicated): Date CC: Priyanka Smith MD CONSULTATION Observed: 06/08/2018 Status: F Source: [place] 9:57 AM [facility] Medical Records Department [address] [place] [address] Consultation 06/08/18 0947 MR#: [id number] Acct: [id number] Name: ASIA HAWLEY Rep #: [id number] : 1960 58 From: Collins Blake MD PCP: Priyanka Smith MD Status: ADM CRUZ Y Location: [place] [address] Problem List (1) Hyponatremia Status: Acute Consultation [...] HPI - Allergies Allergies: Allergies cetirizine [From [facility]] Allergy (Verified 06/01/18 13:53) Unknown - Current Medications Current Medications: Current Medications Aspirin (Aspirin, Baby) 81 mg PO DAILY@0800 [facility] Enoxaparin Sodium (Lovenox) 40 mg SC DAILY@1000 [facility] Levothyroxine Sodium (Synthroid) 75 mcg PO DAILY [...] ABDOMEN/PELVIS WITH Observed: 06/08/2018 Status: F Source: [place] CONTRAST 9:41 AM [facility] Imaging Services [address] [place] [address] [place] [address] Abdomen/Pelvis WITH Contrast MR#: [id number] Acct: [id number] Name: ASIA HAWLEY Rep #: [id number] : 1960 F 58 From: Joaquin Ellington MD PCP: Priyanka Smith MD Status: ADM CRUZ Study: Abdomen/Pelvis WITH Contrast Date of Exam: 06/08/18 Exam# [id number] Ordering Dr: Lana Lacy MD STUDY: CT [...] CC: Priyanka Smith MD; Lana Lacy MD 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 CHEST WITH CONTRAST Observed: 06/08/2018 Status: F Source: [place] 9:41 AM [facility] Imaging Services [address] [place] [address] Chest WITH Contrast MR#: [id number] Acct: [id number] Name: ASIA HAWLEY Rep #: [id number] : 1960 F 58 From: Joaquin Ellington MD PCP: Luis BHATT,Priyanka Status: ADM CRUZ Study: Chest WITH Contrast Date of Exam: 06/08/18 Exam# [id number] Ordering Dr: Lana Lacy MD STUDY: CT [...] CC: Priyanka Smith MD; Lana Lacy MD 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 CBC W/DIFF, AUTOMATED Collected: 06/08/2018 Status: F Source: [place] 7:02 AM [facility] TYPE CODE TESTS RESULT OUT OF [...] Lymph 1.40 Performed By: #### L100.0100 #### [facility] [address] [place], [address] BASIC METABOLIC Collected: 06/08/2018 Status: F Source: [place] PROFILE ([facility]) 7:02 AM [facility] TYPE CODE TESTS RESULT OUT OF [...] GAP 9 Performed By: #### L500.2500 #### [facility] [address] [place], [address] BASIC METABOLIC PANL Collected: 06/07/2018 Status: F Source: [place] 11:47 AM [facility] REPOSITORY TYPE CODE TESTS RESULT OUT OF REFERENCE UNITS RANGE LAB GLU 74-99 mg/dL High Glucose 120 Result Comment: The [place] Diabetes Association (ADA) provides guidance for cutoff [...] Standards of Medical Care in Diabetes 2016, [place] [employer]. Diabetes Care. 2016.39(Suppl 1). LAB [...] actual GFR. Performed By: #### BMP #### [facility] [address] [place], [place] [address] CNOV Observed: 06/07/2018 Status: COMPLETED Source: [place] 11:20 AM [facility] REPOSITORY [facility] ASIA HAWLEY ([id number]) 1960 F Date Time Provider Department 06/07/18 11:20 AM PRIYANKA SMITH During your visit today, we recorded the following information about you: Pulse Respiration Blood pressure Weight 84/minute 16/minute 136/90 76.9 kg Priyanka Smith MD 06/08/2018 9:16 AM Signed TRANSITION CARE MANAGEMENT (TCM) INITIAL CONTACT Fiber Technologist Outreach ? Provider Action/FYI: 7 day TCM: pt was admitted to [facility] on 06/01/18 for low sodium level. Had [...] hidden ? ? SUMMARY: -Pt discharged from [facility] on 06/05/18. -Admitted for: Hyponatremia (Acute) ? [...] Complaint Patient presents with: Transition Of Care: [facility] - 7 day, [facility] d/c 06/05/18 HPI Asia Hawley is a 58 year old female who presents here today for a [facility] follow up. Pt here today for a [facility] admission due to low sodium levels. Pt [...] CRYOCAUTER 1999 - COLONOSCOP W/ OR W/O [facility] SPEC 04/10/09 - COLONOSCOP W/ OR W/O [facility] SPEC 09/05/14 Repeat 2024 - COLONOSCOP W/ OR W/O [facility] SPEC 12/22/2017 Colonoscopy - COLPOSCOPY (VAGINOSCOPY) Multiple starting 1995 Colposcopy - LAPAROSCOPIC HEMICOLECTOMY 12/07/2009 diverticulitis - LIGATE FALLOPIAN TUBE Tubal ligation - LX PARTIAL COLECTOMY 12/23/2017 [facility] lap lysis of adhesions, left oopherectomy, right [...] 12/23/2027 HEPATITIS C SCREENING Completed Data reviewed [facility] records ASSESSMENT/PLAN: 1. Hospital discharge follow-up - ICD9: V67.59, ICD10: Z09 (primary diagnosis) - Complete labs today to check sodium level 2. Hyponatremia - ICD9: 276.1, ICD10: E87.1 - Checks labs Check labs today, once receive results will setup an appt. I agree with the 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, ROS, and Past Histories independently gathered by the clinical clerical support and the remaining scribed note accurately describes [...] Care [4074] Cmt: TCM - 7 day, [facility] d/c 06/05/18 Reason For Visit History Recorded Primary Visit Diagnosis:Hospital discharge follow-up [Z09] Other Visit Diagnosis:Hyponatremia [E87.1] Order(s):BASIC METABOLIC PNL [SQBMP] Order #: [id number] FUTURE Prescriptions as of 06/07/2018 Sig: SODIUM [...] Smear of Vagina and Vagin* 02/06/2010 Dyspareunia [XBG0158] INVALID FOR*02/06/2010 Fx Sacrum/Coccyx-Closed [S32.10XA, S32.2XXA] INVALID [...] 06/08/18 PROGRESS Observed: 06/07/2018 Status: COMPLETED Source: [place] 11:08 AM [facility] REPOSITORY HNO ID: [id number] Author: Priyanka Smith Service: (none) Author Type: Physician Type: Progress Notes Filed: 06/08/2018 9:16 AM Note Text: TRANSITION CARE MANAGEMENT (TCM) INITIAL CONTACT Fiber Technologist Outreach ? Provider Action/FYI: 7 day TCM: pt was admitted to [facility] on 06/01/18 for low sodium level. Had [...] hidden ? ? SUMMARY: -Pt discharged from [facility] on 06/05/18. -Admitted for: Hyponatremia (Acute) ? [...] Complaint Patient presents with: Transition Of Care: [facility] - 7 day, [facility] d/c 06/05/18 HPI Asia Hawley is a 58 year old female who presents here today for a [facility] follow up. Pt here today for a [facility] admission due to low sodium levels. Pt [...] CRYOCAUTER 1999 - COLONOSCOP W/ OR W/O [facility] SPEC 04/10/09 - COLONOSCOP W/ OR W/O [facility] SPEC 09/05/14 Repeat 2024 - COLONOSCOP W/ OR W/O [facility] SPEC 12/22/2017 Colonoscopy - COLPOSCOPY (VAGINOSCOPY) Multiple starting 1995 Colposcopy - LAPAROSCOPIC HEMICOLECTOMY 12/07/2009 diverticulitis - LIGATE FALLOPIAN TUBE Tubal ligation - LX PARTIAL COLECTOMY 12/23/2017 [facility] lap lysis of adhesions, left oopherectomy, right [...] 12/23/2027 HEPATITIS C SCREENING Completed Data reviewed [facility] records ASSESSMENT/PLAN: 1. Hospital discharge follow-up - ICD9: V67.59, ICD10: Z09 (primary diagnosis) - Complete labs today to check sodium level 2. Hyponatremia - ICD9: 276.1, ICD10: E87.1 - Checks labs Check labs today, once receive results will setup an appt. I agree with the 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, ROS, and Past Histories independently gathered by the clinical clerical support and the remaining scribed note accurately describes my personal service to the patient. Priyanka Smith MD The documentation for this note was completed by Tess Persaud Ma acting as scribe for Priyanka Smith MD. June 07, 2018 11:26 AM. PROGRESS Observed: 06/06/2018 Status: COMPLETED Source: [place] 11:[address] [facility] REPOSITORY HNO ID: [id number] Author: Priyanka Smith Service: (none) Author Type: Physician Type: Progress Notes Filed: 06/06/2018 11:46 AM Note Text: Noted Priyanka Smith MD PROGRESS Observed: 06/06/2018 Status: COMPLETED Source: [place] 9:35 AM [facility] REPOSITORY HNO ID: [id number] Author: Susana Bhardwaj Ma Service: (none) Author Type: (none) Type: Progress Notes Filed: 06/06/2018 11:46 AM Note Text: TRANSITION CARE MANAGEMENT (TCM) INITIAL CONTACT Fiber Technologist Outreach Provider Action/FYI: 7 day TCM: pt was admitted to [facility] on 06/01/18 for low sodium level. Had [...] might be hidden SUMMARY: -Pt discharged from [facility] on 06/05/18. -Admitted for: Hyponatremia (Acute) Do [...] recent hospitalization: Placed for provider to review CNPTOUTREACH Observed: 06/06/2018 Status: COMPLETED Source: [place] 12:00 AM [facility] REPOSITORY Patient Out[facility] CHANDANASIA M ([id number]) 1960 F Date Time Provider Department 06/06/18 PRIYANKA SMITH During your visit today, we recorded the following information about you: Susana Bhardwaj Alison 06/06/2018 11:46 AM Signed TRANSITION CARE MANAGEMENT (TCM) INITIAL CONTACT Fiber Technologist Outreach Provider Action/FYI: 7 day TCM: pt was admitted to [facility] on 06/01/18 for low sodium level. Had [...] might be hidden SUMMARY: -Pt discharged from [facility] on 06/05/18. -Admitted for: Hyponatremia (Acute) Do [...] Smear of Vagina and Vagin* 02/06/2010 Dyspareunia [EFH6740] INVALID FOR*02/06/2010 Fx Sacrum/Coccyx-Closed [S32.10XA, S32.2XXA] INVALID [...] DISCHARGE SUMMARY Observed: 06/05/2018 Status: F Source: [place] 9:10 AM [facility] Medical Records Department [address] [place] [address] Discharge Summary 06/05/18 0907 MR#: [id number] Acct: [id number] Name: ASIA HAWLEY Rep #: [id number] : 1960 58 From: Jordan Myles MD PCP: Priyanka Smith MD Status: ADM IN Y Location: [facility] QG600-5 Discharge Date and Diagnosis - Problem List [...] applicable Code Visit Inpatient E AND M: 84544 Disch Hosp 06/05/18909 <Electronically signed by Jordan Myles MD> Date Jordan Myles MD Cosigner Signature (if applicable): Date CC: Jordan Myles MD; Priyanka Smith MD Signed DISCHARGE INSTRUCTION Observed: 06/05/2018 Status: F Source: [place] 9:06 AM [facility] Medical Records Department [address] [place] [address] Instructions for Home/Discharge Instructions 06/05/18904 MR#: [id number] Acct: [id number] Name: ASIA HAWLEY Rep #: [id number] : 1960 58 From: Jordan Myles MD [...] Normal Activity Allergies/Adverse Reactions: Allergies cetirizine [From [employer]] Allergy (Verified 06/01/18 13:53) Unknown Medications to [...] F Source: [place] NO DIFF 5:50 AM [facility] TYPE CODE TESTS RESULT OUT OF [...] MPV 9.8 Performed By: #### L100.0500 #### [facility] [address] [place], [place], [address] BASIC METABOLIC Collected: 06/05/2018 Status: F Source: [place] PROFILE (B[place]) 5:50 AM [facility] TYPE CODE TESTS RESULT OUT OF [...] 8 Performed By: #### L500.2500, L501.5200 #### [facility] [address] [facility], [address] MAGNESIUM Collected: 06/05/2018 Status: F Source: [place] 5:50 AM [facility] TYPE CODE TESTS RESULT OUT OF RANGE REFERENCE UNITS LAB L501.5200 1.6-2.6 mg/dL Normal MG 2.2 Performed By: #### L500.2500, L501.5200 #### [facility] [address] [facility], [address] BASIC METABOLIC Collected: 06/04/2018 Status: F Source: [place] PRO[place] ([place]) 10:10 AM [facility] TYPE CODE TESTS RESULT OUT OF [...] GAP 10 Performed By: #### L500.2500 #### [facility] [address] [place], [place], [id number] CBC-COMPLETE BLOOD CNT Collected: 06/04/2018 Status: F Source: [place] NO DIFF 6:50 AM [facility] TYPE CODE TESTS RESULT OUT OF [...] MPV 9.6 Performed By: #### L100.0500 #### [facility] [address] [facility], [address] BASIC METABOLIC Collected: 06/04/2018 Status: F Source: [place] PROFILE ([place]) 6:50 AM [facility] TYPE CODE TESTS RESULT OUT OF [...] 8 Performed By: #### L500.2500, L501.5200 #### [facility] [address] [facility] [place], [address] MAGNESIUM Collected: 06/04/2018 Status: F Source: [place] 6:50 AM [facility] TYPE CODE TESTS RESULT OUT OF RANGE REFERENCE UNITS LAB L501.5200 1.6-2.6 mg/dL Normal MG 2.0 Performed By: #### L500.2500, L501.5200 #### [facility] [address] [place], [address] CONSULTATION Observed: 06/03/2018 Status: F Source: [place] 12:05 PM [facility] Medical Records Department [address] [place] [address] Consultation 06/03/18 1200 MR#: [id number] Acct: [id number] Name: ASIA HAWLEY Rep #: [id number] : 1960 58 From: Collins Blake MD PCP: Priyanka Smith MD Status: ADM CRUZ Y Location: [place] [id number] Problem List (1) Hyponatremia Status: Acute Consultation [...] [] - Allergies Allergies: Allergies cetirizine [From [facility]] Allergy (Verified 06/01/18 13:53) Unknown - Current Medications Current Medications: Current Medications Acetaminophen (Tylenol) 650 mg PO Q6H PRN PRN PRN Reason: PAIN Last Admin: 06/02/18 04:20 Dose: 650 mg Aspirin (Aspirin, Baby) 81 mg PO DAILY@0800 [facility] Last Admin: 06/03/18 11:00 Dose: 81 mg Enoxaparin Sodium (Lovenox) 40 mg SC DAILY [facility] Last Admin: 06/03/18 11:00 Dose: 40 mg Levothyroxine Sodium (Synthroid) 75 mcg PO DAILY@0600 [facility] Last Admin: 06/03/18 05:48 Dose: 75 mcg Melatonin (Melatonin) 3 mg PO QHS [facility] Last Admin: 06/02/18 22:02 Dose: 3 mg Nutritional Formula (Lactose Free) (Ensure Enlive) 120 ml PO 4X/DAY [facility] Last Admin: 06/03/18 10:52 Dose: Not Given Ondansetron HCl (Zofran Odt) 4 mg PO Q6H PRN PRN PRN Reason: NAUSEA Last Admin: 06/02/18 11:45 Dose: 4 mg Pantoprazole Sodium (Protonix) 20 mg PO QODAY [facility] Last Admin: 06/03/18 11:00 Dose: 20 [...] F Source: [place] NO DIFF 9:00 AM [facility] TYPE CODE TESTS RESULT OUT OF [...] Performed By: #### L100.0500, L500.2500, L501.5200 #### [facility] [address] [place], [address] BASIC METABOLIC Collected: 06/03/2018 Status: F Source: [place] PROFILE ([place]) 9:00 AM [facility] TYPE CODE TESTS RESULT OUT OF [...] Performed By: #### L100.0500, L500.2500, L501.5200 #### [facility] [address] [place], [address] MAGNESIUM Collected: 06/03/2018 Status: F Source: [place] 9:00 AM [facility] TYPE CODE TESTS RESULT OUT OF RANGE REFERENCE UNITS LAB L501.5200 1.6-2.6 mg/dL Normal MG 1.8 Performed By: #### L100.0500, L500.2500, L501.5200 #### [facility] [address] [place], [address] 12 LEAD ELECTROCARDIOGRAM Observed: 06/02/2018 Status: F Source: [place] 3:42 PM [facility] Cardiovascular Services [address] [place] [address] 12 Lead EKG 05/31/18 0932 MR#: [id number] Acct: [id number] Name: ASIA HAWLEY Rep #: [id number] : 1960 58 From: Jacek Barton MD [...] Normal ECG Confirmed by SAMRA BHATT, JACEK ([id number]), video editor ANI ROMERO ([id number]) on 06/02/2018 3:42:03 PM Referred By: RUY Confirmed By:JACEK BARTON MD 06/02/18 1542 Date Jacek Barton MD CC: Ana Olvera MD; Priyanka Smith MD Signed BASIC METABOLIC Collected: 06/02/2018 Status: F Source: [place] PROFILE ([place]MP) 5:20 AM [facility] TYPE CODE TESTS RESULT OUT OF [...] GAP 8 Performed By: #### L500.2500 #### [facility] [address] [place], [place], [address] CORTISOL SERUM Collected: 06/02/2018 Status: F Source: [place] 5:20 AM [facility] TYPE CODE TESTS RESULT OUT OF RANGE REFERENCE UNITS LAB L509.6000 3.09-22.40 ug/dL Normal CORTISOL 13.70 Result Comment: Adult (AM) 4.30 - 22.40 ug/dL Adult (PM) 3.09 - 16.66 ug/dL Performed By: #### L509.6000 #### [facility] [address] [place], [address] EMERGENCY DEPARTMENT Observed: 06/01/2018 Status: F Source: [place] SUMMARY 11:50 PM [facility] Medical Records Department [address] [place] [address] Emergency Department Summary 06/01/18 1546 MR#: [id number] Acct: [id number] Name: ASIA HAWLEY Rep #: [id number] : 1960 58 From: Bar Conner MD [...] 1. Hyponatremia This note was generated with Nearbox dictation software. It may contain incorrect words, [...] your Primary Care Provider. Call [facility] ([phone]) or report to the closest Emergency Room. Call 911 if necessary. 06/01/18 2350 <Electronically signed by Bar Conner MD> Date Bar Conner MD Cosigner Signature (If Indicated): Date CC: Priyanka Smith MD Observed: 06/01/2018 Status: F Source: [place] RESPIRATORY PANEL 8:38 PM [facility] RP PANEL ADENOVIRUS Not Detected [...] acid amplification Performed By: #### M100.638 #### [facility] [address] [facility] [place], [place], [address] CHEST PA AND LATERAL Observed: 06/01/2018 Status: F Source: [place] 6:02 PM [facility] REPOSITORY [facility] Imaging Services [address] [place] [address] Chest PA and Lateral MR#: [id number] Acct: [id number] Name: ASIA HAWLEY Rep #: [id number] : 1960 F 58 From: Pk Kirk DO PCP: Priyanka Smith MD Status: ADM CRUZ Study: Chest PA and Lateral Date of Exam: 06/01/18 Exam# [id number] Ordering Dr: Javier Stoner DO STUDY: X-RAY [...] Pk Kirk DO at 23:39 EST Tel [phone], Service support , CC: Monica Stoner; Priyanka Smith MD 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 HISTORY AND PHYSICAL Observed: 06/01/2018 Status: F Source: [place] EXAM 5:49 PM [facility] Medical Records Department [address] [place] [address] History and Physical 06/01/18 1638 MR#: [id number] Acct: [id number] Name: ASIA HAWLEY Rep #: [id number] : 1960 58 From: Lang EASLEY PCP: Priyanka Smith MD Status: ADM CRUZ Y Location: [place] [address] ADDENDUM by Monica Stoner on 06/01/18 at [...] Lang and orders have been written. 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 Y TYPE CODE TESTS RESULT OUT OF RANGE REFERENCE UNITS LAB L501.5500 Not Establ. mmol/L Normal UR NA 116 Performed By: #### L501.5500 #### [facility] [address] [facility] [place], [address] OSMOLALITY, URINE Collected: 06/01/2018 Status: F Source: [place] 5:23 PM [facility] Order Comment: Comments: collected at 1723 Has pt arrived? Y TYPE CODE TESTS RESULT OUT OF RANGE REFERENCE UNITS LAB L501.7400 mOsm/KG Normal 558 OSMOLALITY,U R Result Comment: OSMOLALITY URINE REFERENCE INTERVALS 24-hour Urine 300 - 900 mOsm/kg Random Urine 50 - 1400 mOsm/kg After 12 Hr fluid restriction >850 mOsm/kg Performed By: #### L501.7400 #### [facility] [address] [place], [address] CBC W/DIFF, AUTOMATED Collected: 06/01/2018 Status: F Source: [place] 2:20 PM [facility] TYPE CODE TESTS RESULT OUT OF [...] Lymph 1.64 Performed By: #### L100.0100 #### [facility] [address] [place], [address] COMPREHENSIVE METABOLIC Collected: 06/01/2018 Status: F Source: [facility] 2:20 PM [facility] TYPE CODE TESTS RESULT OUT OF [...] GAP 7 Performed By: #### L500.4050 #### [facility] [address] [place], [place], [address] CRP Collected: 06/01/2018 Status: F Source: [place] 2:20 PM [facility] TYPE CODE TESTS RESULT OUT OF RANGE REFERENCE UNITS LAB L501.6710 0.0-3.0 mg/L Normal < 2.90 C-REACTIVE PROT Result Comment: C-Reactive Protein (CRP) provides useful information for the diagnosis, therapy and monitoring of inflammatory processes and associated diseases. For the evaluation of Relative Risk for Cardiovascular Disease, a High Sensitivity CRP (HSCRP) should be ordered. Performed By: #### L501.6710 #### [facility] [address] [place], [place], [address] ERYTHROCYTE SED RATE Collected: 06/01/2018 Status: F Source: [place] 2:20 PM [facility] TYPE CODE TESTS RESULT OUT OF RANGE REFERENCE UNITS LAB L102.0000 0-30 mm/hr Normal SED RATE 9 Performed By: #### L101.9900 #### [facility] [address] [place], [address] OSMOLALITY, SERUM Collected: 06/01/2018 Status: F Source: [place] 2:20 PM [facility] TYPE CODE TESTS RESULT OUT OF RANGE REFERENCE UNITS LAB L501.7300 275-295 mOsm/KG Low 267 OSMOLALITY,S ER Performed By: #### L501.7300 #### [facility] [address] [place], [address] PROGRESS Observed: 06/01/2018 Status: COMPLETED Source: [place] 1:[address] [facility] [facility] HNO ID: [id number] Author: Priyanka Smith Service: (none) Author Type: [...] - COLONOSCOP W/ OR W/O [facility] SPEC 4/22/15 Repeat 2024 - COLONOSCOP W/ OR W/O [facility] SPEC 12/22/2017 Colonoscopy - COLPOSCOPY (VAGINOSCOPY) Multiple starting 1995 Colposcopy - LAPAROSCOPIC HEMICOLECTOMY 12/07/2009 diverticulitis - LIGATE FALLOPIAN TUBE Tubal ligation - LX PARTIAL COLECTOMY 12/23/2017 [facility] lap lysis of adhesions, left oopherectomy, right [...] Past Histories independently gathered by the clinical clerical support and the remaining scribed note accurately describes my personal service to the patient. Priyanka Smith MD The documentation for this note was completed by Tess Persaud Ma acting as scribe for Priyanka Smith MD. June 01, 2018 1:13 PM. CNOV Observed: 06/01/2018 Status: COMPLETED Source: [place] 1:00 PM [facility] REPOSITORY Office Visit (FAMPWS) ASIA HAWELY ([id number]) 1960 F Date Time Provider Department 06/01/18 [...] W/O [facility] SPEC 09/05/14 Repeat 2024 - COLONOSCOP W/ OR W/O [facility] SPEC 12/22/2017 Colonoscopy - COLPOSCOPY (VAGINOSCOPY) Multiple starting 1995 Colposcopy - LAPAROSCOPIC HEMICOLECTOMY 12/07/2009 diverticulitis - LIGATE FALLOPIAN TUBE Tubal ligation - LX PARTIAL COLECTOMY 12/23/2017 [facility] lap lysis of adhesions, left oopherectomy, right [...] Past Histories independently gathered by the clinical clerical support and the remaining scribed note accurately describes [...] Smear of Vagina and Vagin* 02/06/2010 Dyspareunia [[id number]] INVALID FOR*02/06/2010 Fx Sacrum/Coccyx-Closed [S32.10XA, S32.2XXA] INVALID [...] EMERGENCY DEPARTMENT Observed: 05/31/2018 Status: F Source: [place] 5:58 PM [facility] [place] Medical Records Department [address] [place] [address] Emergency Department Summary 05/31/18 0923 MR#: [id number] Acct: [id number] Name: ASIA HAWLEY Rep #: [id number] : 1960 58 From: Ana Olvera MD PCP: Luis BHATT,Priyanka Status: DEP ER [...] Joaquin Ellington MD at 11:06 EST Tel [phone], Service support , Medications Given Lactated Ringer's () 1,000 mls @ 150 mls/hr IV .Q6H40M SHANTA Last Admin: 05/31/18 10:13 Dose: 150 mls/hr [...] Mild hyponatremia This note was generated with Nearbox dictation software. It may contain incorrect words, [...] problems, contact your Primary Care Provider. Call [facility] ([phone]) or report to the closest Emergency Room. Call 911 if necessary. 05/31/18 175 <Electronically signed by Ana Olvera MD> Date Ana Olvera MD Cosigner Signature (If Indicated): Date CC: Priyanka Smith MD DISCHARGE INSTRUCTION Observed: 05/31/2018 Status: F Source: [place] 5:32 PM [facility] [place] [facility] Medical Records Department [address] [place] [address] Discharge Instruction 05/31/18 1200 MR#: [id number] Acct: [id number] Name: ASIA HAWLEY Rep #: [id number] : 1960 58 From: Ana Olvera MD [...] your Primary Care Provider. Call [facility] ([phone]) or report to the closest Emergency Room. Call 911 if necessary. 05/31/18 173 <Electronically signed by Ana Olvera MD> Date Ana Olvera MD Cosigner Signature (If Indicated): Date CC: Priyanka Smith MD CBC W/DIFF, AUTOMATED Collected: 05/31/2018 Status: F Source: [place] 10:11 AM [facility] TYPE CODE TESTS RESULT OUT OF [...] Lymph 1.40 Performed By: #### L100.0100 #### [facility] [address] [place], [place], [id number] COMPREHENSIVE METABOLIC Collected: 05/31/2018 Status: F Source: [place] 10:11 AM [facility] TYPE CODE TESTS RESULT OUT OF [...] Performed By: #### L500.4050, L501.5200, L501.9520 #### [facility] [address] [place], [address] MAGNESIUM Collected: 05/31/2018 Status: F Source: [place] 10:11 AM [facility] TYPE CODE TESTS RESULT OUT OF RANGE REFERENCE UNITS LAB L501.5200 1.6-2.6 mg/dL Normal MG 2.1 Performed By: #### L500.4050, L501.5200, L501.9520 #### [facility] [address] [facility], [address] THYROID STIM HORMONE Collected: 05/31/2018 Status: F Source: [place] (TSH) 10:11 AM [facility] TYPE CODE TESTS RESULT OUT OF RANGE REFERENCE UNITS LAB L501.9520 0.358-3.74 uIU/mL Normal TSH 1.82 Performed By: #### L500.4050, L501.5200, L501.9520 #### [facility] [address] [place], [address] URINALYSIS, COMPLETE Collected: 05/31/2018 Status: F Source: [place] 10:00 AM [facility] Order Comment: Order Date: 05/31/18 How [...] CRYSTAL RARE Performed By: #### L400.0001 #### [facility] [address] [facility], [address] URINE SODIUM Collected: 05/31/2018 Status: F Source: [place] 10:00 AM [facility] Order Comment: Order Date: 05/31/18 TYPE CODE TESTS RESULT OUT OF RANGE REFERENCE UNITS LAB L501.5500 Not Establ. mmol/L Normal UR NA 40 Performed By: #### L501.5500 #### [facility] [address] [place], [address] OSMOLALITY, URINE Collected: 05/31/2018 Status: F Source: [place] 10:00 AM [facility] Order Comment: Order Date: 05/31/18 TYPE CODE TESTS RESULT OUT OF RANGE REFERENCE UNITS LAB L501.7400 mOsm/KG Normal 542 OSMOLALITY,U R Result Comment: OSMOLALITY URINE REFERENCE INTERVALS 24-hour Urine 300 - 900 mOsm/kg Random Urine 50 - 1400 mOsm/kg After 12 Hr fluid restriction >850 mOsm/kg Performed By: #### L501.7400 #### [facility] [address] [place], [address] CHEST PA AND LATERAL Observed: 05/31/2018 Status: F Source: [place] 9:24 AM [facility] [place] [place] Imaging Services [address] [place] [address] Chest PA and Lateral MR#: [id number] Acct: [id number] Name: ASIA HAWLEY Rep #: [id number] : 1960 F 58 From: Joaquin Ellington MD PCP: Priyanka Smith MD Status: REG ER Study: Chest PA and Lateral Date of Exam: 05/31/18 Exam# [id number] Ordering Dr: Ana Olvera MD STUDY: X-RAY [...] Joaquin Ellington MD at 11:06 EST Tel [phone], Service support , CC: Ana Olvera MD; Priyanka Smith MD 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 OSMOLALITY, URINE Collected: 05/30/2018 Status: F Source: [place] 1:20 PM [facility] REPOSITORY TYPE CODE TESTS RESULT OUT OF RANGE REFERENCE UNITS LAB UOSM 50-1200 mOsm/kg 566 Osmolality, Urine Performed By: #### UOSM, UNAR #### [facility] [address] [place] [id number] SODIUM,URINE,RANDOM Collected: Status: F Source: [place] 05/30/2018 1:20 PM [facility] REPOSITORY TYPE CODE TESTS RESULT OUT OF RANGE REFERENCE UNITS LAB UNAR 14-216 mmol/L 78 Sodium,Urine ,Random Performed By: #### UOSM, UNAR #### [facility] [address] [place], [place] [address] BASIC METABOLIC PANL Collected: 05/30/2018 Status: F Source: [place] 1:[address] [facility] REPOSITORY TYPE CODE TESTS RESULT OUT OF REFERENCE UNITS RANGE LAB GLU 74-99 mg/dL High Glucose 108 Result Comment: The [place] Diabetes Association (ADA) provides guidance for cutoff [...] Standards of Medical Care in Diabetes 2016, [place] [employer]. Diabetes Care. 2016.39(Suppl 1). LAB [...] actual GFR. Performed By: #### BMP #### [facility] [address] [place], [place] [address] CBC Collected: 05/28/2018 Status: F Source: [place] 9:13 AM [facility] REPOSITORY TYPE CODE TESTS RESULT [...] By: #### CBC, CMP, FT4, TSH #### [facility] [address] [place] [id number] COMP METABOLIC PANEL Collected: 05/28/2018 Status: F Source: [place] 9:13 AM [facility] REPOSITORY TYPE CODE TESTS RESULT OUT OF REFERENCE UNITS RANGE LAB TP 6.3-8.0 g/dL Protein, High Total 8.1 LAB ALB 3.9-4.9 g/dL Albumin 4.1 LAB CA 8.5-10.2 mg/dL Calcium, Total 9.9 LAB TBIL 0.2-1.3 mg/dL Bilirubin, Total 0.8 LAB ALKP 34-123 U/L Alkaline Phosphatase 103 LAB AST 13-35 U/L AST High 63 LAB GLU 74-99 mg/dL Glucose 86 Result Comment: The [place] Diabetes Association (ADA) provides guidance for cutoff [...] Standards of Medical Care in Diabetes 2016, [place] Diabetes [employer]. Diabetes Care. 2016.39(Suppl 1). LAB [...] By: #### CBC, CMP, FT4, TSH #### [facility] [employer] [address] [place] [id number] FREE T4 Collected: 05/28/2018 Status: F Source: [place] 9:13 AM [facility] REPOSITORY TYPE CODE TESTS RESULT OUT OF RANGE REFERENCE UNITS LAB FT4 0.9-1.7 ng/dL High Free T4 1.9 Performed By: #### CBC, CMP, FT4, TSH #### [facility] [employer] [address] [place] [address] TSH Collected: 05/28/2018 Status: F Source: [place] 9:13 AM [facility] REPOSITORY TYPE CODE TESTS RESULT OUT OF RANGE REFERENCE UNITS LAB TSH 0.400-5.500 uU/mL TSH 2.790 Performed By: #### CBC, CMP, FT4, TSH #### [facility] [employer] [address] [place] [address] PROGRESS Observed: 05/28/2018 Status: COMPLETED Source: [place] 8:[address] [facility] HNO ID: [id number] Author: Harsha Glass Service: (none) Author Type: [...] CRYOCAUTER 1999 - COLONOSCOP W/ OR W/O [facility] SPEC 04/10/09 - COLONOSCOP W/ OR W/O [facility] SPEC 09/05/14 Repeat 2024 - COLONOSCOP W/ OR W/O [facility] SPEC 12/22/2017 Colonoscopy - COLPOSCOPY (VAGINOSCOPY) Multiple starting 1995 Colposcopy - LAPAROSCOPIC HEMICOLECTOMY 12/07/2009 diverticulitis - LIGATE FALLOPIAN TUBE Tubal ligation - LX PARTIAL COLECTOMY 12/23/2017 [facility] lap lysis of adhesions, left oopherectomy, right [...] MD CNOV Observed: 05/28/2018 Status: COMPLETED Source: [place] 8:15 AM [facility] REPOSITORY Office Visit (WSTR) CHANDANASIA ([id number]) 1960 F Date Time Provider Department 05/28/18 8:15 AM HARSHA GLASS [facility] During your visit today, we recorded the [...] W/O [facility] SPEC 09/05/14 Repeat 2024 - COLONOSCOP W/ OR W/O [facility] SPEC 12/22/2017 Colonoscopy - COLPOSCOPY (VAGINOSCOPY) Multiple starting 1995 Colposcopy - LAPAROSCOPIC HEMICOLECTOMY 12/07/2009 diverticulitis - LIGATE FALLOPIAN TUBE Tubal ligation - LX PARTIAL COLECTOMY 12/23/2017 [facility] lap lysis of adhesions, left oopherectomy, right [...] type [R53.83] Order(s):TSH BLD [SQTSH] Order #: [id number] FUTURE T4 FREE/FREE THYROX [SQFT4] Order #: [id number] FUTURE COMP METABOLIC PANEL [SQCMP] Order #: [id number] FUTURE CBC [SQCBC] Order #: [id number] FUTURE Prescriptions as of 05/28/2018 Sig: OMEPRAZOLE [...] Smear of Vagina and Vagin* 02/06/2010 Dyspareunia [QXZ8605] INVALID FOR*02/06/2010 Fx Sacrum/Coccyx-Closed [S32.10XA, S32.2XXA] INVALID [...] 05/28/18 PROGRESS Observed: 02/03/2018 Status: COMPLETED Source: [place] 5:53 PM [facility] REPOSIT[facility] HNO ID: [id number] Author: Broderick Ohara Service: (none) Author Type: Physician Type: Progress Notes Filed: 02/03/2018 5:56 PM Note Text: FOLLOW UP VISIT - POST OP COLON RESECTION NAME: Asia Hawley [facility] NO.: [id number] DATE OF SERVICE: February 03, 2018 : [...] following the CAT Scan Was Performed at [facility] and demonstrated no abnormal masses in the [...] donut (sigmoid): Colonic donut, no pathologic diagnosis. :selvin 12/28/17 COMMENT A. Calcification is noted in the area of papillary serous cystadenoma and also in the mesothelial inclusion cyst. C. The largest possible lymph node consists of an area of fat necrosis and inflammation. Please make reference to previous specimen ([id number]) sigmoid colon, biopsy with diagnosis of fragments of colonic mucosa with focal changes consistent with ischemic colitis and ([id number]) sigmoid colon, colectomy with diagnosis of diverticulosis [...] tissue measuring 0.5 cm in greatest dimension. Line Installer Repairer sections are submitted in three cassettes as [...] in thickness. No mass lesions are identified. Line Installer Repairer sections are submitted in three cassettes as [...] node measures 1.5 cm in greatest dimension. Line Installer Repairer sections are submitted in six cassettes as follows: 1 ? appendix, 2 ? resection margin, open resection margin is inked black, 3 AND 4 ? diverticula, 5 ? largest lymph node support representative section, 6 ? pericolonic adipose tissue [...] x 0.5 cm. Multiple sutures are noted. Line Installer Repairer sections are submitted in one cassette. / SJ:rg 12/24/17 TC:1 CPT: 60662 x3, 47176 x3 Asia noted a superficial rash on [...] MD CNOV Observed: 02/03/2018 Status: COMPLETED Source: [place] 7:40 AM [facility] REPOSITORY Office Visit (GENSWS) ASIA HAWLEY ([id number]) 1960 F Date Time Provider Department 02/03/18 7:40 AM [facility] During your visit today, we recorded the following information about you: Broderick Ohara MD 02/03/2018 5:56 PM Signed FOLLOW UP VISIT - POST OP COLON RESECTION NAME: Asia Herrera Chandan [facility] NO.: [id number] DATE OF SERVICE: February 03, 2018 : [...] following the CAT Scan Was Performed at [facility] and demonstrated no abnormal masses in the [...] inflammation. Please make reference to previous specimen ([id number]) sigmoid colon, biopsy with diagnosis of fragments of colonic mucosa with focal changes consistent with ischemic colitis and ([id number]) sigmoid colon, colectomy with diagnosis of diverticulosis [...] tissue measuring 0.5 cm in greatest dimension. Line Installer Repairer sections are submitted in three cassettes as follows: 1 ? fallopian tube and also possible detached fragment of fallopian tube, 2 AND 3 ? ovary (cassette 2 also contains the polypoid lesion on the surface). Almost 90% of the ovary is submitted. / SJ:rg 12/24/17 B - Received in fixative is [...] in thickness. No mass lesions are identified. Line Installer Repairer sections are submitted in three cassettes as follows: 1 ? fallopian tube, 2 AND 3 ? ovary. / SJ:rg 12/24/17 C - Received in fixative is [...] node measures 1.5 cm in greatest dimension. Line Installer Repairer sections are submitted in six cassettes as follows: 1 ? appendix, 2 ? resection margin, open resection margin is inked black, 3 AND 4 ? diverticula, 5 ? largest lymph node support representative section, 6 ? pericolonic adipose tissue [...] x 0.5 cm. Multiple sutures are noted. Line Installer Repairer sections are submitted in one cassette. / : 12/24/17 TC:1 CPT: 00547 x3, 31979 x3 Asia noted a superficial rash on [...] Broderick Ohara MD Referring Provider: PRIYANKA SMITH [[id number]] Allergies As of Date: 02/03/2018 Noted Allergy [...] Smear of Vagina and Vagin* 02/06/2010 Dyspareunia [YRY6604] INVALID FOR*02/06/2010 Fx Sacrum/Coccyx-Closed [S32.10XA, S32.2XXA] INVALID [...] OPERATIVE REPORT Observed: 01/14/2018 Status: F Source: [place] 1:34 PM [facility] Medical Records Department [address] [place] [address] [place] [address] Operative Report 12/23/17 0832 MR#: [id number] Acct: [id number] Name: ASIA HAWLEY Rep #: [id number] : 1960 57 From: Erika Valadez PCP: Priyanka Smith MD Status: DIS IN Y Location: [facility] [id number] Report of Operation Date of Procedure: 12/23/17 [...] Signed PROGRESS Observed: 12/30/2017 Status: COMPLETED Source: [place] 9:06 AM [facility] REPOSITORY [facility] ID: [id number] Author: Broderick Ohara Service: (none) Author Type: Physician Type: Progress Notes Filed: 12/30/2017 9:14 AM Note Text: OPERATIVE NOTATION FOR [facility] SURGICAL PROCEDURE. December 22, 2017 Asia Hawley 1960 [id number] female PROCEDURE: Laparoscopic Low Anterior Resection - 10699-890 and Lap Mobilization of the Splenic Flexure - +52927-427, Laparoscopic Lysis of Adhesions - 82520 SURGEON: Anna Ohara M.D. FACS ROUTE SALES TRAINEE: [facility] DEPT: W PROVIDER: [id number] Ohara MD POS: [id number] DIAGNOSIS: (K57.30) Diverticulosis of large intestine without [...] Clean Contaminated Operative note dictated in the [facility] dictation system. Broderick Ohara MD PROGRESS Observed: 12/30/2017 Status: COMPLETED Source: [place] 8:[address] [facility] REPOSITORY [facility] ID: [id number] Author: Broderick Ohara Service: (none) Author Type: Physician Type: Progress Notes Filed: 12/30/2017 9:23 AM Note Text: FOLLOW UP VISIT - POST OP COLON RESECTION NAME: Asia Herrera [facility] NO.: [id number] DATE OF SERVICE: 12/30/2017 : 1960 REFERRING [...] following the CAT Scan Was Performed at [facility] and demonstrated no abnormal masses in the [...] donut (sigmoid): Colonic donut, no pathologic diagnosis. :selvin 12/28/17 COMMENT A. Calcification is noted in the area of papillary serous cystadenoma and also in the mesothelial inclusion cyst. C. The largest possible lymph node consists of an area of fat necrosis and inflammation. Please make reference to previous specimen ([id number]) sigmoid colon, biopsy with diagnosis of fragments of colonic mucosa with focal changes consistent with ischemic colitis and ([id number]) sigmoid colon, colectomy with diagnosis of diverticulosis [...] tissue measuring 0.5 cm in greatest dimension. Line Installer Repairer sections are submitted in three cassettes as [...] in thickness. No mass lesions are identified. Line Installer Repairer sections are submitted in three cassettes as [...] node measures 1.5 cm in greatest dimension. Line Installer Repairer sections are submitted in six cassettes as follows: 1 ? appendix, 2 ? resection margin, open resection margin is inked black, 3 AND 4 ? diverticula, 5 ? largest lymph node support representative section, 6 ? pericolonic adipose tissue [...] x 0.5 cm. Multiple sutures are noted. Line Installer Repairer sections are submitted in one cassette. / : 12/24/17 TC:1 CPT: 28558 x3, 48307 x3 Asia notes a superficial rash on [...] MD CNOV Observed: 12/30/2017 Status: COMPLETED Source: [place] 8:00 AM [facility] REPOSITORY Office Visit (GENSWS) ASIA HAWLEY ([id number]) 1960 F Date Time Provider Department 12/30/17 8:00 AM [facility] During your visit today, we recorded the following information about you: Pulse Blood pressure Weight 68/minute 118/74 78.2 kg Broderick Ohara MD 12/30/2017 9:23 AM Signed FOLLOW UP VISIT - POST OP COLON RESECTION NAME: sAia Hawley [facility] NO.: [id number] DATE OF SERVICE: 12/30/2017 : 1960 REFERRING [...] following the CAT Scan Was Performed at [facility] and demonstrated no abnormal masses in the [...] inflammation. Please make reference to previous specimen ([id number]) sigmoid colon, biopsy with diagnosis of fragments of colonic mucosa with focal changes consistent with ischemic colitis and ([id number]) sigmoid colon, colectomy with diagnosis of diverticulosis [...] tissue measuring 0.5 cm in greatest dimension. Line Installer Repairer sections are submitted in three cassettes as follows: 1 ? fallopian tube and also possible detached fragment of fallopian tube, 2 AND 3 ? ovary (cassette 2 also contains the polypoid lesion on the surface). Almost 90% of the ovary is submitted. / SJ:rg 12/24/17 B - Received in fixative is [...] in thickness. No mass lesions are identified. Line Installer Repairer sections are submitted in three cassettes as follows: 1 ? fallopian tube, 2 AND 3 ? ovary. / SJ:rg 12/24/17 C - Received in fixative is [...] node measures 1.5 cm in greatest dimension. Line Installer Repairer sections are submitted in six cassettes as follows: 1 ? appendix, 2 ? resection margin, open resection margin is inked black, 3 AND 4 ? diverticula, 5 ? largest lymph node support representative section, 6 ? pericolonic adipose tissue [...] x 0.5 cm. Multiple sutures are noted. Line Installer Repairer sections are submitted in one cassette. / : 12/24/17 TC:1 CPT: 14606 x3, 63130 x3 Asia notes a superficial rash on [...] Broderick Ohara MD Referring Provider: PRIYANKA SMITH [[id number]] Allergies As of Date: 12/30/2017 Noted Allergy [...] 12/30/2017 7:50 AM >> PHONG MONTAÑO LPN [facility] Dec 30, 2017 7:50 AM Plesae d/c NEOMYCIN 500 MG TABLET >> Phong Montaño LPN 12/30/2017 7:49 AM >> PHONG MONTAÑO LPN [facility] Dec 30, 2017 7:49 AM Please d/c METRONIDAZOLE 500 MG TABLET >> Phong Montaño LPN 12/30/2017 7:50 AM >> PHONG MONTAÑO LPN [facility] Dec 30, 2017 7:50 AM please d/c Problem List As Of Date 12/30/2017 Noted Resolved Hypothyroidism [E03.9] Abnormal Papanicolaou Smear of Vagina and Vagin* 02/06/2010 Dyspareunia [ZLW7929] INVALID FOR*02/06/2010 Fx Sacrum/Coccyx-Closed [S32.10XA, S32.2XXA] INVALID [...] AND PHYSICAL Observed: 12/29/2017 Status: F Source: [place] EXAM 7:38 AM [facility] Medical Records Department [address] [place] [address] History and Physical 12/29/17 0736 MR#: [id number] Acct: [id number] Name: AISA HAWLEY Rep #: [id number] : 1960 57 From: Daniel Johnson MD PCP: Luis BHATT,Priyanka Status: DIS IN Y Location: [facility] IT716-1 Problem List (1) History of ureter stent Status: Acute History of Present Illness Date of Admission: 12/23/17 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: stent placement Called in to placed stents, patient asleep. Past Medical History Allergies cetirizine [From yrtec] Allergy (Verified 12/16/17 14:03) Unknown Home Medications: Ambulatory Orders Medication Instructions Recorded Levothyroxine Sodium [Levoxyl] 75 mcg PO DAILY 09/05/14 Aspirin [Aspirin, Baby] 81 mg PO DAILY@0800 11/16/17 Surgical History: noncontributory Psychiatric History: No pertinent psych hx FOOD OPERATIONS MANAGER History: No pertinent FOOD OPERATIONS MANAGER history Smoking Status: Never smoker - *Family [...] DISCHARGE SUMMARY Observed: 12/26/2017 Status: F Source: [place] 10:04 AM [facility] [place] Medical Records Department [address] [place] [address] Discharge Summary 12/26/17818 MR#: [id number] Acct: [id number] Name: ASIA HAWLEY Rep #: [id number] : 1960 57 From: Broderick Ohara MD PCP: Priyanka Smith MD Status: DIS IN Y Location: [facility] [id number] Discharge Date and Diagnosis Date of Admission: [...] 12/26/2017 Status: F Source: [place] 8:21 AM [facility] Medical Records Department [address] [place] [address] Instructions for Home/Discharge Instructions 12/26/17 0819 MR#: [id number] Acct: [id number] Name: ASIA HAWLEY Rep #: [id number] : 1960 57 From: Broderick Ohara MD [...] MD When: 8am Proposed Discharge Date: 12/26/17 12/26/1721 <Electronically signed by Broderick Ohara MD> Date Broderick Ohara MD CC: Priyanka Smith MD CBC W/DIFF, AUTOMATED Collected: 12/26/2017 Status: F Source: [place] 5:40 AM [facility] TYPE CODE TESTS RESULT OUT OF [...] Lymph 1.79 Performed By: #### L100.0100 #### [facility] [address] [place], [address] COMPREHENSIVE METABOLIC Collected: 12/26/2017 Status: F Source: [place] 5:40 AM [facility] TYPE CODE TESTS RESULT OUT OF [...] Performed By: #### L500.4050, L501.2300, L501.5200 #### [facility] [address] [place], [address] PHOSPHORUS Collected: 12/26/2017 Status: F Source: [place] 5:40 AM [facility] TYPE CODE TESTS RESULT OUT OF RANGE REFERENCE UNITS LAB L501.2300 2.5-4.9 mg/dL Normal PHOS 2.7 Performed By: #### L500.4050, L501.2300, L501.5200 #### [facility] [address] [place], [address] MAGNESIUM Collected: 12/26/2017 Status: F Source: [place] 5:40 AM [facility] [place] CODE TESTS RESULT OUT OF RANGE REFERENCE UNITS LAB L501.5200 1.6-2.6 mg/dL Normal MG 1.6 Performed By: #### L500.4050, L501.2300, L501.5200 #### [facility] [address] [place], [address] CBC W/DIFF, AUTOMATED Collected: 12/24/2017 Status: F Source: [place] 6:08 AM [facility] [place] TYPE CODE TESTS RESULT OUT OF [...] Lymph 1.25 Performed By: #### L100.0100 #### [facility] [address] [place], [address] COMPREHENSIVE METABOLIC Collected: 12/24/2017 Status: F Source: [facility] 6:08 AM [facility] [place] TYPE CODE TESTS RESULT OUT OF [...] GAP 10 Performed By: #### L500.4050 #### [facility] [address] [place], [address] CBC-COMPLETE BLOOD CNT Collected: 12/23/2017 Status: F Source: [place] NO DIFF 7:22 PM [facility] [place] TYPE CODE TESTS RESULT OUT OF [...] MPV 10.1 Performed By: #### L100.0500 #### [facility] [address] [place], [address] OPERATIVE REPORT Observed: 12/23/2017 Status: F Source: [place] 7:18 PM [facility] [place] [facility] Medical Records Department [address] [place] [address] Operative Report 12/23/17 1238 MR#: [id number] Acct: [id number] Name: ASIA HAWLEY Rep #: [id number] : 1960 57 From: Broderick Ohara MD PCP: Priyanka Smith MD Status: ADM IN Y Location: [facility] FA683-3 Report of Operation Date of Procedure: 12/23/17 [...] appendectomy Description of Surgical Findings:: as above supplier quality engineering manager: Aniya Wadsworth supplier quality engineering manager: Lola Grace Type of Anesthesia:: General Anesthesiologist: [...] OPERATIVE REPORT Observed: 12/23/2017 Status: F Source: [place] 8:05 AM [facility] [place] [facility] Medical Records Department [address] [place] [address] Operative Report 12/23/17 08 MR#: [id number] Acct: [id number] Name: ASIA HAWLEY Rep #: [id number] : 1960 57 From: Daniel Johnson MD PCP: Priyanka Smith MD Status: ADM IN Location: [facility] BL349-4 Report of Operation Date of Procedure: 12/23/17 [...] fashion when the bladder with a 21 Lebanese cystourethroscope entire length of the urethra is [...] Admission: No VTE Mechan Device Prophylaxis: SCD's 12/23/17804 <Electronically signed by Daniel Johnson MD> Date Daniel Johnson MD CC: Daniel Johnson MD; Priyanka Smith MD; Broderick Ohara MD Signed OVARY (CHOOSE SIDE) Observed: 12/23/2017 Status: F Source: [place] 7:15 AM [facility] [place] Patient: ASIA HAWLEY : 1960 (57/F) Acct Num: [id number] Phys: Lev BHATT,Broderick Unit Num: [id number] Loc: MS3 [id number] Specimen: [id number] Received: 12/24/17 - 1041 Spec Type: OVARY [...] inflammation. Please make reference to previous specimen ([id number]) sigmoid colon, biopsy with diagnosis of fragments of colonic mucosa with focal changes consistent with ischemic colitis and (M23-1770) sigmoid colon, colectomy with diagnosis of diverticulosis [...] tissue measuring 0.5 cm in greatest dimension. Line Installer Repairer sections are submitted in three cassettes as [...] in thickness. No mass lesions are identified. Line Installer Repairer sections are submitted in three cassettes as [...] node measures 1.5 cm in greatest dimension. Line Installer Repairer sections are submitted in six cassettes as follows: 1 appendix, 2 resection margin, open resection margin is inked black, 3 AND 4 diverticula, 5 largest lymph node support representative section, 6 pericolonic adipose tissue with possible lymph nodes. / : D - Received in fixative is one container labeled with the patient's name and designated distal donut (rectal). The specimen consists of a donut-shaped piece of colonic tissue measuring 1.5 x 1 x 0.5 cm. No lesion is identified. The specimen is sectioned and submitted entirely in one cassette. / : 12/24 E - Received in fixative is one container labeled with the patient's name and designated proximal donut (sigmoid). The specimen consists of a donut-shaped piece of colonic tissue measuring 2 x 1.5 x 0.5 cm. Multiple sutures are noted. Line Installer Repairer sections are submitted in one cassette. / : 12/24/17 TC:1 CPT: 17811 x3, 09626 x3 HEADER OPERATION: Redo laparoscopic sigmoid colectomy/low [...] Colonic donut, no pathologic diagnosis. : 12/28/17 Signed Sammy Szymanski 12/28/17 <signature on file> Performed By: #### POV #### [facility] [address] [place], [place] [address] [place], [address] NURSING PROG Observed: 12/22/2017 Status: COMPLETED Source: [place] 11:40 AM [facility] REPOSITORY HNO ID: [id number] Author: Mariam Branham RN Service: (none) Author Type: Registered Nurse Type: Nursing Progress Note Filed: 12/22/2017 12:17 PM Note Text: Patient did not experience a fall prior to discharge. Patient did not experience a burn prior to discharge. Mariam Branham RN NURSING PROG Observed: 12/22/2017 Status: COMPLETED Source: [place] 11:14 AM [facility] REPOSITORY HNO ID: [id number] Author: Mariam Branham RN Service: (none) Author Type: Registered Nurse Type: Nursing Progress Note Filed: 12/22/2017 11:14 AM Note Text: Dr. Grace was by and spoke with both pt and mother. Mariam Branham RN PT ED Observed: 12/22/2017 Status: COMPLETED Source: [place] 11:14 AM [facility] REPOSITORY HNO ID: [id number] Author: Mariam Branham RN Service: (none) Author [...] NURSING PROG Observed: 12/22/2017 Status: COMPLETED Source: [place] 11:12 AM [facility] REPOSITORY HNO ID: [id number] Author: Mariam Branham RN Service: (none) Author [...] NURSING PROG Observed: 12/22/2017 Status: COMPLETED Source: [place] 11:08 AM [facility] REPOSITORY HNO ID: [id number] Author: Mariam MannRnGeovanna Branham RN Service: (none) Author Type: Registered [...] NURSING PROG Observed: 12/22/2017 Status: COMPLETED Source: [place] 10:58 AM [facility] REPOSITORY HNO ID: [id number] Author: Amber Nelson RN Service: Nursing Author Type: Registered Nurse Type: Nursing Progress Note Filed: 12/22/2017 10:58 AM Note Text: Patient did not experience a fall within the Intraoperative area. Patient did not experience a burn within the Intraoperative area. Amber Nelson RN COLON BIOPSY (CHOOSE Observed: 12/22/2017 Status: F Source: [facility] 10:[facility] AM [facility] [place] Patient: ASIA HAWLEY : 1960 (57/F) Acct Num: [id number] Phys: Sanjay BHATT,Lola Unit Num: [id number] Loc: LABSPEC Specimen: [id number] Received: 12/22/173 Spec Type: COLON BX TISSUES TISSUES: Sigmoid colon biopsy COMMENT The results were reported to Dr. Grace on 01/23/18. Please make reference to previous specimen ([id number]) sigmoid colon, colectomy with diagnosis of diverticulosis [...] one cassette. / SJ:selvin 12/22/17 TC:5 CPT: 16584 HEADER OPERATION: Colonoscopy with biopsy PRE-OP DIAGNOSIS: K57.92, R93.3, R10.32, K59.07 TISSUE SUBMITTED: Sigmoid colon biopsy MICROSCOPIC DESCRIPTION Slides are reviewed. MICROSCOPIC DIAGNOSIS Sigmoid colon, biopsy: Fragments of colonic mucosa with focal changes consistent with ischemic colitis. SJ:selvin 12/23/17 Signed Sammy Szymanski 12/23/17 <signature on file> Performed By: #### PCOLBX #### [facility] [address] [place] [address]. [place], [address] NURSING PROG Observed: 12/22/2017 Status: COMPLETED Source: [place] 10:11 AM [facility] REPOSITORY HNO ID: [id number] Author: Aydin Chin RN Service: Nursing Author Type: Registered Nurse Type: Nursing Progress Note Filed: 12/22/2017 10:12 AM Note Text: {[facility] PRE-OP NURSING HAND OFF NOTE SBAR Hand off given to Amber Nelson RN. Hand off was communicated verbally and all questions were answered. FALLS/MENDEZ Patient did not experience a fall within the Preoperative area. Patient did not experience a burn within the Preoperative area. Aydin Chin RN PT ED Observed: 12/22/2017 Status: COMPLETED Source: [place] 9:00 AM [facility] REPOSITORY HNO ID: [id number] Author: Aydin Sparrow) Siman, RN Service: Nursing Author Type: Registered Nurse [...] SURGERY CNOP Observed: 12/22/2017 Status: COMPLETED Source: [place] 12:00 AM [facility] REPOSITORY Operative Note (Enc) (GENSWS) Progress Notes: Broderick Ohara MD 12/30/2017 9:14 AM Signed OPERATIVE NOTATION FOR [facility] SURGICAL PROCEDURE. December 22, 2017 Asia Hawley 1960 [id number] female PROCEDURE: Laparoscopic Low Anterior Resection - 06579-650 and Lap Mobilization of the Splenic Flexure - +52348-411, Laparoscopic Lysis of Adhesions - 75137 SURGEON: Anna Ohara M.D. FACS ROUTE SALES TRAINEE: [facility] DEPT: W PROVIDER: [id number] Ohara MD POS: [id number] DIAGNOSIS: (K57.30) Diverticulosis of large intestine without [...] Clean Contaminated Operative note dictated in the [facility] dictation system. Broderick Ohara MD Encounter Status:Closed by BRODERICK OHARA MD on 12/30/17 PROGRESS Observed: 12/21/2017 Status: COMPLETED Source: [place] 5:[address] [facility] REPOSITORY HNO ID: [id number] Author: Erika Valadez Service: (none) Author Type: [...] SPEC 04/10/09 - COLONOSCOP W/ OR W/O [facility] SPEC 09/05/14 Repeat 2024 - COLPOSCOPY [...] HISTORY PHYSICAL Observed: 12/21/2017 Status: COMPLETED Source: [place] 2:[address] [facility] REPOSITORY HNO ID: [id number] Author: Lola Grace Service: (none) Author Type: [...] basis Tried to make an appointment at [facility] and was told that there was nothing that can be done Also noted to have left ovarian cyst, it was recommended by her meteorology faculty member to undergo left salpingo-oopherectomy EGD 08/31/16 - [...] questions. CNOV Observed: 12/21/2017 Status: COMPLETED Source: [place] 8:10 AM [facility] REPOSITORY Office Visit (WOOB) CHANDANASIA ([id number]) 1960 F Date Time Provider Department 12/21/17 8:10 AM ERIKA VALADEZ During your visit today, we recorded the following information about you: Pulse Respiration Blood pressure Weight 70/minute 18/minute 104/64 78.8 kg Height 1.64 m Erika Valadez MD 12/21/2017 5:14 PM Signed Asia Herrera Chandan is a 57 year old female who [...] SPEC 04/10/09 - COLONOSCOP W/ OR W/O [facility] SPEC 09/05/14 Repeat 2024 - COLPOSCOPY [...] surgery with AND . Erika Valadez MD Referring Provider: SELF [[id number]] Allergies As [...] Smear of Vagina and Vagin* 02/06/2010 Dyspareunia [BEC7816] INVALID FOR*02/06/2010 Fx Sacrum/Coccyx-Closed [S32.10XA, S32.2XXA] INVALID [...] LEAD ELECTROCARDIOGRAM Observed: 12/20/2017 Status: F Source: [place] 2:34 PM [facility] Cardiovascular Services [address] [place] [address] EKG - [facility] 12/16/17 1327 MR#: [id number] Acct: [id number] Name: ASIA HAWLEY Rep #: [id number] : 1960 57 From: Jacek Barton MD Attending Dr: Broderick Ohara MD Status: PRE IN Ordering Dr: Heraclio Toth MD Date: 12/16/17 Location: [facility] Sex: F C Admitted: Test Reason : Blood Pressure : / mmHG Vent. Rate : 063 BPM Atrial Rate : 063 BPM P-R Int : 170 ms QRS Dur : 084 ms QT Int : 412 ms P-R-T Axes : 033 -10 037 degrees QTc Int : 421 ms Normal sinus rhythm Nonspecific T wave abnormality Confirmed by SAMRA BHATT, JACEK ([id number]), video editor ANI ROMERO ([id number]) on 12/20/2017 2:34:10 PM Referred By: Broderick Ohara Confirmed By:JACEK BARTON MD 12/20/17 1434 Date Jacek Barton MD CC: Heraclio Toth MD; Priyanka Smith MD; Broderick Ohara MD Date Dictated: 12/16/17 132 Date Transcribed: 12/16/171326 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 PROGRESS Observed: 12/16/2017 Status: COMPLETED Source: [place] 11:19 AM [facility] REPOSITORY HNO ID: [id number] Author: Monika (Ot) Joseph Service: (none) Author [...] each in order to be able to tack picker small items. MET Patient will independently [...] OF FUNCTION: Hand Evaluation Strength: Dynamometer / Photo Checker And Assembler;Pinch Meter R Photo Checker And Assembler Position 2 (lbs): 25 lbs R Lateral [...] abduction and opposition 3: medium soft putty manufacturing manager digit extension roll, digit flexion and tripod [...] monitored throughout treatment. Billing: Gonzalez: Therapeutic Exercise (21655): 1:1 time:30 minutes (2 units: 23-37 mins) Fluidotherapy (96847) 1 unit(s) Total time: 40 minutes Monika Romero OT/DYLAN CNTHERAPY Observed: 12/16/2017 Status: COMPLETED Source: [place] 11:00 AM [facility] REPOSITORY OT/PT/Speech Visit (OTMMC) CHANDANASIA M ([id number]) 1960 F Date Time Provider Department 12/16/17 11:00 AM MONIKA ROMERO (OT) [facility] Date Time Provider Department Center 12/16/2017 11:00 AM [id number] ROMERO *[facility] C Reason for Visit: OT Discharge [...] one(1) tablet daily. Progress Notes: ESME Arzate 12/16/2017 12:04 PM Signed Episode Visit Count: [...] each in order to be able to tack picker small items. MET Patient will independently [...] OF FUNCTION: Hand Evaluation Strength: Dynamometer / Photo Checker And Assembler;Pinch Meter R Photo Checker And Assembler Position 2 (lbs): 25 lbs R Lateral [...] abduction and opposition 3: medium soft putty manufacturing manager digit extension roll, digit flexion and tripod [...] monitored throughout treatment. Billing: Gonzalez: Therapeutic Exercise (76281): 1:1 time:30 minutes (2 units: 23-37 mins) Fluidotherapy (63299) 1 unit(s) Total time: 40 minutes Monika Romero OT/DYLAN PROGRESS Observed: 12/13/2017 Status: COMPLETED Source: [place] 10:35 AM [facility] REPOSITORY HNO ID: [id number] Author: Cleo Mcqueen Service: (none) Author Type: Certified Professional Midwife Type: Progress Notes Filed: 12/13/2017 10:35 AM [...] Not applicable SIGNED BY: CLEO MCQUEEN RDMS RVT December 13, 2017 10:35 AM US FEMALE PELVIS Observed: 12/13/2017 Status: F [facility]: [facility]:34 AM [facility] REPOSITORY * * *Final Report* * * DATE OF EXAM: Dec 13 2017 10:34AM [facility] 1060 - US FEMALE PELVIS TRANSVAG / [...] and follow-up ultrasound in 6-12 weeks recommended. Pressure Steamer Tender: JUAN Transcribe Date/Time: Dec 13 2017 2:28P Dictated by : CYNTHIA ALAS MD This examination was interpreted and the report reviewed and electronically signed by: CYNTHIA ALAS MD on Dec 13 2017 2:43PM EST [id number] PROGRESS Observed: 12/13/2017 Status: COMPLETED Source: [place] 10:33 AM [facility] REPOSITORY HNO ID: [id number] Author: Raul Clifton Service: (none) Author Type: Physician Type: Progress Notes Filed: 12/13/2017 10:40 AM Note Text: Raul Clifton MD Department of Orthopaedics Orthopaedics [address] [place] [address] Dept: [phone] Dept December 13, 2017 CHIEF COMPLAINT: Recheck [...] Hcl] This note was partially generated using Nearbox voice recognition system, and there may be some incorrect words, spellings, and punctuation that were not noted in checking the note before saving. Raul Clifton MD PROGRESS Observed: 12/13/2017 Status: COMPLETED Source: [place] 8:47 AM [facility] REPOSITORY HNO ID: [id number] Author: Jessa Parson RN Service: (none) Author [...] concerns. CNOV Observed: 12/13/2017 Status: COMPLETED Source: [place] 8:30 AM [facility] REPOSITORY Office Visit (JEFFRYWS) ASIA HAWLEY ([id number]) 1960 F Date Time Provider Department 12/13/17 [...] MD Department of Orthopaedics [facility] [address] [facility] [address] Dept: [phone] Dept December 13, 2017 CHIEF COMPLAINT: Recheck [...] Hcl] This note was partially generated using Nearbox voice recognition system, and there may be some incorrect words, spellings, and punctuation that were not noted in checking the note before saving. Raul Clifton MD Referring Provider: RAUL CLIFTON [[id number]] Allergies As of Date: 12/13/2017 Noted Allergy [...] Smear of Vagina and Vagin* 02/06/2010 Dyspareunia [GKF0029] INVALID FOR*02/06/2010 Fx Sacrum/Coccyx-Closed [S32.10XA, S32.2XXA] INVALID [...] SURGICAL PATHOLOGY Observed: 12/10/2017 Status: F Source: [place] 12:[address] [facility] REPOSITORY Specimen originated from [facility] Specimen #: [id number] Submitting Physician: ERIKA VALADEZ MD FINAL DIAGNOSIS [...] not survive processing. Gross examination performed at [facility], [address] [place] [address] 12/11/2017 12:36:36 AM Date of Report: 12/14/2017 Date of Procedure: 12/10/2017 Date of Receipt: 12/10/2017 Submitted by: ERIKA VALADEZ MD Location: [facility] Diagnostic interpretation performed at [facility], [address] [place] [address]. CNOV Observed: 12/10/2017 Status: COMPLETED Source: [place] 11:30 AM [facility] REPOSITORY Office Visit (WOOB) ASIA HAWLEY ([id number]) 1960 F Date Time Provider Department 12/10/17 11:30 AM ERIKA VALADEZ During your visit today, we recorded the following information about you: Blood pressure Weight 112/74 81.2 kg Erika Valadez MD 12/10/2017 12:06 PM Signed Asiayumiko Hawley is a 57 [...] given to the patient. MD Clementina Kong Ma 12/10/2017 11:23 AM Signed YOUR RECOVERY It [...] HPV (human papillomavirus) test positive [R87.810] Order(s):COLPOSCOPY [3209588] Order #: [id number] SURGICAL PATHOLOGY [4948126] Order #: [id number] Prescriptions as of 12/10/2017 Sig: NEOMYCIN 500 [...] Smear of Vagina and Vagin* 02/06/2010 Dyspareunia [HZF2665] INVALID FOR*02/06/2010 Fx Sacrum/Coccyx-Closed [S32.10XA, S32.2XXA] INVALID [...] your doctor's office. Encounter Status:Closed by ERIKA VLAADEZ MD on 12/10/17 PROGRESS Observed: 12/10/2017 Status: COMPLETED Source: [place] 11:23 AM [facility] REPOSITORY [facility] ID: [id number] Author: Erika Valadez Service: (none) Author Type: [...] MD PROGRESS Observed: 12/09/2017 Status: COMPLETED Source: [place] 6:04 PM [facility] REPOSITORY HNO ID: [id number] Author: Broderick Ohara Service: (none) Author Type: [...] following the CAT Scan Was Performed at [facility] and demonstrated no abnormal masses in the [...] SPEC 04/10/09 - COLONOSCOP W/ OR W/O [facility] SPEC 09/05/14 Repeat 2024 - COLPOSCOPY [...] perform a Laparoscopic Low Anterior Resection - 04653-168. The planned surgical procedure was discussed extensively [...] CPT Code: Laparoscopic Low Anterior Resection - 49411-349 and Lap Mobilization of the Splenic Flexure - +20216-743 Anticipated Anesthetic: General Patient weight: Last menstrual period 01/07/2011. BMI: There is no height or weight on file to calculate BMI. Planned antibiotic: Cefotetan 2gm IVPB radio communications mechanician to OR SCDs needed - Yes Clinical Support Nurse Needed - Yes Diagnoses: (R10.30) Lower abdominal pain (primary encounter diagnosis) (K57.30) Diverticulosis of large intestine without perforation or abscess without bleeding (R11.0) Nausea Return to Clinic: The patient is instructed to follow-up with me 1 week post operatively. Broderick Ohara MD CNOV Observed: 12/09/2017 Status: COMPLETED Source: [place] 3:00 PM [facility] REPOSITORY Office Visit (GENSWS) ASIA HAWLEY ([id number]) 1960 F Date Time Provider Department 12/09/17 3:00 PM BRODERICK OHARA During your visit today, we recorded the following information about you: Broderick Ohara MD 12/09/2017 3:33 PM Signed The following instructions are important for you related to your office visit today with the [facility]. INSTRUCTIONS FOR YOUR SURGICAL PROCEDURE [...] you should contact our office immediately @ [phone] and ask to be transferred to the [...] following the CAT Scan Was Performed at [facility] and demonstrated no abnormal masses in the [...] CRYOCAUTER 1999 - COLONOSCOP W/ OR W/O [facility] SPEC 04/10/09 - COLONOSCOP W/ OR W/O [facility] SPEC 09/05/14 Repeat 2024 - COLPOSCOPY [...] perform a Laparoscopic Low Anterior Resection - 69405-115. The planned surgical procedure was discussed extensively [...] CPT Code: Laparoscopic Low Anterior Resection - 19422-962 and Lap Mobilization of the Splenic Flexure - +07350-290 Anticipated Anesthetic: General Patient weight: Last menstrual period 01/07/2011. BMI: There is no height or weight on file to calculate BMI. Planned antibiotic: Cefotetan 2gm IVPB radio communications mechanician to OR SCDs needed - Yes Clinical Support Nurse Needed - Yes Diagnoses: (R10.30) Lower abdominal pain (primary encounter diagnosis) (K57.30) Diverticulosis of large intestine without perforation or abscess without bleeding (R11.0) Nausea Return to Clinic: The patient is instructed to follow-up with me 1 week post operatively. Broderick Ohara MD Referring Provider: LOLA GRACE [[id number]] Allergies As of Date: 12/09/2017 Noted Allergy [...] Smear of Vagina and Vagin* 02/06/2010 Dyspareunia [JVZ7245] INVALID FOR*02/06/2010 Fx Sacrum/Coccyx-Closed [S32.10XA, S32.2XXA] INVALID [...] to your office visit today with the [facility]. INSTRUCTIONS FOR YOUR SURGICAL PROCEDURE [...] you should contact our office immediately @ [phone] and ask to be transferred to the [...] SIGNATURE TIME TIME DATE December 09, 2017 [facility] DATE December 09, 2017 Orders verified by readback: PRE-ADMISSION TESTING PHYSICIAN'S ORDER SHEET PREOPERATIVE ORDERS: X ANTIBIOTIC: _Cefotetan 2gm IVPB radio communications mechanician to OR__ aware of penicillin allergy ok to administer X SCD'S __ PREP LOCATION: ___abd, modified lithotomy_ __ PAINT WITH BETADINE/CHLORAHEXIDINE PREP PRE-ADMISSION TESTING PHYSICIAN'S ORDER SHEET 94673 CR001 REV 07.28.07 ANESTHESIA: __ Surgeon has notified anesthesia. Date/Time Doctor OR __ Anesthesia not yet notified of consult by surgeon. Check area of concern. System of concern: __Cardiac __Pulmonary __Neuro __ Airway __Allergies __Other __ Anesthesia to see patient at PAT appointment. (PAT appt must be between 1-3 pm) LAB ORDERS: X Labs done at [facility] (Copies enclosed for [facility]) __ Duplicate order __ No Labs ordered [...] Reason for exam: __ Incentive Spirometer __ EMPLOYEE'S REPRESENTATIVE Other: Patient has: Pacemaker ICD Net Technical Architect name AND phone number: Pacer/ICD rep notified [...] perforation or abscess without bleeding (R11.0) Nausea [facility] Surgery / Procedure: Laparoscopic Low Anterior Resection - 33080-628 and Lap Mobilization of the Splenic Flexure - +59050-500 Surgeon / Physician: Broderick Ohara MD My [...] science. No doctor, nurse or anyone from [facility] promised or guaranteed the success or clinical [...] -- Date and Time signed Physician's signature [id number] Rev 11/20 Informed Consent Page 1 of 2 [facility] Informed Consent Surgery / Procedure: Laparoscopic Low Anterior Resection - 16854-733 and Lap Mobilization of the Splenic Flexure - +92420-079 Surgeon / Physician: Broderick Ohara MD My [...] science. No doctor, nurse or anyone from [facility] promised or guaranteed the success or clinical [...] of my confidential medical record. To allow [facility] employees, such as an Registered Nurse Trading Manager (SALES OPERATIONS ANALYST) to assist with my surgery To allow Healthcare Industry Representatives to be present during my surgery or procedure To allow students to participate in the care, under appropriate situations. Page 1 of 2 [facility] Informed Consent Check One: To give me [...] have explained. Physician?s Signature Date and Time [facility] [address] [place], [place] [address] Erika Valadez MD [address] [place] [address] 12/09/2017 Dear Erika Valadez MD : Thank [...] following the CAT Scan Was Performed at [facility] and demonstrated no abnormal masses in the [...] CRYOCAUTER 1999 - COLONOSCOP W/ OR W/O [facility] SPEC 04/10/09 - COLONOSCOP W/ OR W/O [facility] SPEC 09/05/14 Repeat 2024 - COLPOSCOPY [...] perform a Laparoscopic Low Anterior Resection - 69758-616. The planned surgical procedure was discussed extensively [...] CPT Code: Laparoscopic Low Anterior Resection - 67103-608 and Lap Mobilization of the Splenic Flexure - +[phone] Anticipated Anesthetic: General Patient weight: Last menstrual period 01/07/2011. BMI: There is no height or weight on file to calculate BMI. Planned antibiotic: Cefotetan 2gm IVPB radio communications mechanician to OR SCDs needed - Yes Clinical Support Nurse Needed - Yes Diagnoses: (R10.30) Lower abdominal [...] following the CAT Scan Was Performed at [facility] and demonstrated no abnormal masses in the [...] CRYOCAUTER 1999 - COLONOSCOP W/ OR W/O [facility] SPEC 04/10/09 - COLONOSCOP W/ OR W/O [facility] SPEC 09/05/14 Repeat 2024 - COLPOSCOPY [...] perform a Laparoscopic Low Anterior Resection - 79394-528. The planned surgical procedure was discussed extensively [...] CPT Code: Laparoscopic Low Anterior Resection - 71574-776 and Lap Mobilization of the Splenic Flexure - +[phone] Anticipated Anesthetic: General Patient weight: Last menstrual period 01/07/2011. BMI: There is no height or weight on file to calculate BMI. Planned antibiotic: Cefotetan 2gm IVPB radio communications mechanician to OR SCDs needed - Yes Clinical Support Nurse Needed - Yes Diagnoses: (R10.30) Lower abdominal [...] SURGICAL PATHOLOGY Observed: 12/07/2017 Status: F Source: [place] 2:[address] [facility] REPOSITORY Specimen originated from [facility] Specimen #: [id number] Submitting Physician: ERIKA VALADEZ MD FINAL DIAGNOSIS A. Skin, perineum, vulva, biopsy - Subacute spongiotic dermatitis, see comment. AF/MGU/barry 12/13/2017 COMMENT Histologic sections demonstrate confluent parakeratosis [...] Gram and GMS were performed at the [facility] and compared to appropriate controls. These stains [...] in one cassette. Gross examination performed at [facility], [address] [place] [address] 12/09/2017 1:51:04 AM Date of Report: 12/16/2017 Date of Procedure: 12/07/2017 Date of Receipt: 12/08/2017 Submitted by: ERIKA VALADEZ MD Location: [facility] Diagnostic interpretation performed at [place] [address]. CNOV Observed: 12/07/2017 Status: COMPLETED Source: [place] 2:[address] [facility] REPOSITORY Office Visit (WOOB) ASIA HAWLEY ([id number]) 1960 F Date Time Provider Department 12/07/17 2:40 PM ERIKA VALADEZ During your visit today, we recorded the following information about you: Blood pressure Weight 102/62 81.6 kg Erika Valadez MD 12/07/2017 2:57 PM Signed Asia Javier Hawley is a 57 year old female [...] 2mL 1% lidocaine with 1:100,000 epi. 4mm Bowen punch used to biopsy region. HEMOSTASIS: Obtained [...] schedule colpo this week Erika Valadez MD Clementina Masters [place] 12/07/2017 2:21 PM Signed VULVAR BIOPSY PATIENT INSTRUCTIONS Many conditions may cause your meteorology faculty member to suggest a vulvar biopsy including vulvar itching unresponsive to therapy, ulcerated lesions, pigmented lesions, and tumors. The biopsy result will assist your meteorology faculty member to devise a treatment plan suitable to [...] of ovary, unspecified laterality [N83.209] Order(s):SURGICAL PATHOLOGY [[id number]] Order #: [id number] PELVIC US WHI [[id number]] Order #: [id number]: [id number] Prescriptions as of 12/07/2017 Sig: LEVOTHYROXINE [...] Smear of Vagina and Vagin* 02/06/2010 Dyspareunia [DLU9060] INVALID FOR*02/06/2010 Fx Sacrum/Coccyx-Closed [S32.10XA, S32.2XXA] INVALID [...] PATIENT INSTRUCTIONS Many conditions may cause your meteorology faculty member to suggest a vulvar biopsy including vulvar itching unresponsive to therapy, ulcerated lesions, pigmented lesions, and tumors. The biopsy result will assist your meteorology faculty member to devise a treatment plan suitable to [...] 12/07/17 PROGRESS Observed: 12/07/2017 Status: COMPLETED Source: [place] 2:[address] [facility] [place] REPOSITORY [facility] ID: [id number] Author: Erika Valadez Service: (none) Author Type: [...] 2mL 1% lidocaine with 1:100,000 epi. 4mm Bowen punch used to biopsy region. HEMOSTASIS: Obtained [...] MD PROGRESS Observed: 12/07/2017 Status: COMPLETED Source: [place] 9:43 AM CLINIC OTHER CAMPUS REPOSITORY HNO ID: [id number] Author: Monika (Garrett) Joseph Service: (none) Author Type: Occupational Therapist [...] radial abduction and opposition 3: soft putty manufacturing manager digit extension roll, digit flexion and thrpod [...] monitored throughout treatment. Billing: Lisa: Therapeutic Exercise (57389): 1:1 time:30 minutes (2 units: 23-37 mins) Fluidotherapy (32098) 1 unit(s) Total time: 40 minutes Monika Romero OT/LC CNTHERAPY Observed: 12/07/2017 Status: COMPLETED Source: [place] 9:30 AM CLINIC OTHER CAMPUS REPOSITORY OT/PT/Speech Visit (OTC) ASIA HAWLEY ([id number]) 1960 F Date Time Provider Department 12/07/17 9:30 AM MONIKA ROMERO (OT) [facility] Date Time Provider Department Center 12/07/2017 9:30 AM [id number] [facility] for Visit: Occupational Therapy [504] Primary [...] radial abduction and opposition 3: soft putty manufacturing manager digit extension roll, digit flexion and thrpod [...] monitored throughout treatment. Billing: Lisa: Therapeutic Exercise (75731): 1:1 time:30 minutes (2 units: 23-37 mins) Fluidotherapy (07234) 1 unit(s) Total time: 40 minutes Monika Romero OT/ALETHA Annotated image of OT HAND WRIST STRENGTHENING last updated by Monika Romero on 12/07/2017 9:46 AM Annotated image of OT HAND THERAPUTTY EXERCISES PG 1 last updated by Monika Gomez) Joseph on 12/07/2017 9:46 AM Annotated image of OT HAND THERAPUTTY EXERCISES PG 2 last updated by Monika Romero on 12/07/2017 9:46 AM CNCO Observed: 12/06/2017 Status: COMPLETED Source: [place] 10:[address] [facility] REPOSITORY HNO ID: [id number] Author: Mammography Coordinator Service: (none) Author Type: Physician Type: Letter Filed: 12/07/2017 11:32 PM Note Text: December 06, 2017 PID: [id number] Asia Henry Chandan [address] [place] [address] Dear Ms. Hawley, We are pleased to [...] report will be kept on file at [facility] as part of your permanent medical record and are available for your continuing care. Thank you for allowing us to help in meeting your health care needs. Sincerely, Dr. Maxwell Interpreting Radiologist [facility] (Normal over 40) [facility] SCREENING Observed: 12/06/2017 Status: F Source: [place] 9:[address] [facility] [place] REPOSITORY * * *Final Report* * * DATE OF EXAM: Dec 06 2017 9:20AM [facility] 0581 - [facility] SCREENING / PROCEDURE REASON: Encounter for screening mammogram for malignant neoplasm of breast * * * * Physician Interpretation * * * * RESULT: #[id number] - [facility] SCREENING BILATERAL DIGITAL SCREENING MAMMOGRAM [...] dated: 12/01/2016 mammogram and 11/04/2015 mammogram - [facility]. There are scattered fibroglandular elements in both breasts. No significant masses, calcifications, or other findings are seen in either breast. There has been no significant interval change. IMPRESSION: NEGATIVE There is no mammographic evidence of malignancy. A 1 year screening mammogram is recommended. The exam was reviewed by a staff physician. Anika hannah,mikal/kaushal:12/06/2017 10:39:23 Account Manager Sales Representative: Ilda HEWITT)(Javier), [facility] letter sent: Normal over 40 Mammogram BI-RADS: 1 Negative Pressure Steamer Tender: Kaushal Transcribe Date/Time: Dec 06 2017 8:58A Dictated by: KARLA CARD MD This examination was interpreted and the report reviewed and electronically signed by: ANIKA MAXWELL MD on Dec 06 2017 10:39AM EST [id number] Observed: 12/06/2017 Status: COMPLETED Source: [place] 12:[address] [facility] REPOSITORY Patient:Asia Hawley MRN: <[id number]> Height:5' 4.567(1.64 m) Weight:173 lb 12.8 oz [...] for the following basenames: K,HCT Progress Notes (CHIEF LOCK OPERATOR [facility]): Erika Valadez MD 12/21/2017 5:14 PM [...] SPEC 04/10/09 - COLONOSCOP W/ OR W/O [facility] SPEC 09/05/14 Repeat 2024 - COLPOSCOPY [...] AND . Erika Valadez MD Progress Notes (CHIEF LOCK OPERATOR [facility]): Alie Sanabria LPN 12/16/2017 11:56 AM Signed ----- Message from Erika Valadez sent at 12/14/2017 5:29 PM EDT ----- Patient going to OR with AND next week We need to coordinate a woodworking bench carpenter doctor to be there for possible oophorectomy and hysteroscopy with MD Alie Barros LPN 12/16/2017 4:13 PM Signed Notified that Dr. Valadez will be doing the hysteroscopy Soumya on 12/23/17. 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 Designated Electronic Equipment Repairmen on the Day of Your Exam A responsible family member or friend MUST come with you to your colonoscopy and REMAIN in the endoscopy area until you are discharged. You are NOT ALLOWED to drive, take a taxi or bus, or leave the Endoscopy Center ALONE. If you do not have a responsible non emergency services ambulance driver (family member or friend) with you [...] carbonated beverages such as carlita yvon or lemon-angoon soda; Gatorade or other sports drinks (not [...] type [K59.00] Order(s):SHORTY PT ED DIGESTIVE DISEASES [[id number]] Order #: [id number]. #:[id number]: 1 peg 3350-Electrolytes (GOLYTELY) 236-22.74-6.74 - 5.86 gram suspensionTake 4,000 mL by mouth one time only for 1 dose. Refer to printed prep instructions from your doctor.Disp: 1 BottleRfl: 0 COLONOSCOPY - DIAGNOSTIC [[id number]] Order #: [id number] FUTURE Prescriptions as of 12/01/2017 Sig: LEVOTHYROXINE [...] Smear of Vagina and Vagin* 02/06/2010 Dyspareunia [XEA6541] INVALID FOR*02/06/2010 Fx Sacrum/Coccyx-Closed [S32.10XA, S32.2XXA] INVALID [...] until the day before your colonoscopy. Designated Electronic Equipment Repairmen on the Day of Your Exam A responsible family member or friend MUST come with you to your colonoscopy and REMAIN in the endoscopy area until you are discharged. You are NOT ALLOWED to drive, take a taxi or bus, or leave the Endoscopy Center ALONE. If you do not have a responsible non emergency services ambulance driver (family member or friend) with you [...] carbonated beverages such as carlita yvon or lemon-angoon soda; Gatorade or other sports drinks (not [...] 12/03/17 PROGRESS Observed: 11/30/2017 Status: COMPLETED Source: [place] 1:02 PM CLINIC OTHER CAMPUS REPOSITORY O ID: [id number] Author: Monika Romero Service: (none) Author Type: Occupational Therapist [...] was able to help her daughter can sandra Pain Score: 0/10 Pain Location: Wrist - [...] she has at home 5: soft sponge manufacturing manager manipulate and tack picker 6: wrist circumduction cw and ccw [...] monitored throughout treatment. Billing: Gonzalez: Therapeutic Exercise (87131): 1:1 time:20 minutes (1 unit: 8-22 mins) Manual Therapy (91606): 1:1 time: 10 minutes (1 unit: 8-22 mins) Fluidotherapy (01573) 1 unit(s) Total time: 40 minutes Monika Romero OT/LCHT CNTHERAPY Observed: 11/30/2017 Status: COMPLETED Source: [place] 12:45 PM CLINIC OTHER CAMPUS REPOSITORY OT/PT/Speech Visit (OTMMC) ASIA HAWLEY ([id number]) 1960 F Date Time Provider Department 11/30/17 12:45 PM MONIKA ROMERO () [facility] Date Time Provider Department Center 11/30/2017 12:45 PM [id number] ROMERO [facility] Reason for Visit: Occupational Therapy [...] she has at home 5: soft sponge manufacturing manager manipulate and tack picker 6: wrist circumduction cw and ccw [...] monitored throughout treatment. Billing: Lisa: Therapeutic Exercise (39183): 1:1 time:20 minutes (1 unit: 8-22 mins) Manual Therapy (46920): 1:1 time: 10 minutes (1 unit: 8-22 mins) Fluidotherapy (63206) 1 unit(s) Total time: 40 minutes Monika Romero OT/DYLAN BARIUM ENEMA W/AIR Observed: 11/29/2017 Status: F Source: [place] 7:32 AM [facility] Imaging Services [address] [place] [address] Barium Enema w/Air Contrast MR#: [id number] Acct: [id number] Name: ASIA HAWLEY Rep #: [id number] : 1960 F 57 From: Joaquin Ellington MD PCP: Priyanka Smith MD Status: REG CLI Study: Barium Enema w/Air Contrast Date of Exam: 11/29/17 Exam# [id number] Ordering Dr: Lola Grace MD STUDY: BARIUM ENEMA. REASON FOR EXAM: Female, 57 years old. History of prior colon resection. FLUOROSCOPY TIME (if supplied): (1:00) minutes/seconds TECHNIQUE: A director telecommunications film was obtained. Following this, barium was introduced retrograde through the rectum. The entire colon was opacified. COMPARISON: None. FINDINGS: On the director telecommunications film, the gas pattern is unremarkable. Phleboliths [...] Joaquin Ellington MD at 14:24 EDT Tel [phone], Service support , CC: Lola Grace MD; Priyanka Smith MD 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 HPV W/GENOTYPE Collected: 11/25/2017 Status: F Source: [place] 4:04 PM CLINIC MAIN CAMPUS REPOSITORY TYPE CODE [...] developed and its performance characteristics determined by [facility] [place] ([facility] It has not been cleared or approved by the FDA. [facility] is regulated under CLIA as qualified to perform high-complexity testing. This test is used for clinical purposes. It should not be regarded as inv estigational or for research. Performed By: #### HPVHRR #### [facility] [address] [place], [place] [address] CYTOLOGY Observed: 11/25/2017 Status: C Source: [place] 4:04 [facility] [place] REPOSITORY ADDITIONAL PROCEDURES PRESENT Specimen originated from [facility] Specimen #: [id number] Submitting Physician: ERIKA VALADEZ MD SPECIMEN SUBMITTED A: CERVICAL, SCREENING, FLUID FINAL DIAGNOSIS A. CERVICAL, SCREENING, FLUID Satisfactory for interpretation. Negative for intraepithelial lesion or malignancy. Atrophic specimen. This specimen has been analyzed by the [employer] EDI Imaging System, an automated imaging and review system, which assists the laboratory in evaluating cells on ThinPrep Pap tests. Following automated imaging, selected saavedra from every slide are reviewed by a metallurgical engineer. MARK Hale(ASCP) (Electronic Signature) ADDITIONAL PROCEDURE(S) HUMAN PAPILLOMA VIRUS Date Ordered: 11/29/2017 Date Reported: 11/30/2017 Procedure Results and Interpretation Positive for HPV DNA high risk type 16 by PCR(*) Negative for HPV DNA high risk type 18 by PCR. Negative for HPV DNA high risk types: 31,33,35,39,45,51,52,56,58,59,66,68 by PCR. This test was developed and its performance characteristics determined by [facility] [place] ([facility]). It has not been cleared or approved by the FDA. [facility] is regulated under CLIA as qualified to perform high-complexity testing. This test is used for clinical purposes. It should not be regarded as investigational or for research. CLINICAL DATA ROUTINE EXAM, HPV Testing: Yes, automatic HPV patients over 30 Date of Last Menstrual Period: 01/07/2011 Menstrual History: Post-Menopausal STAINS A: CERVICAL, SCREENING, FLUID THIN PREP FOOD OPERATIONS MANAGER Gerri Donaldson M.D., Policy Officer Date of Report: 12/02/2017 Date of Procedure: 11/25/2017 Date of Receipt: 11/29/2017 Submitted by: ERIKA VALADEZ MD Location: [facility] Diagnostic interpretation performed at [facility], [address] [place], [place] [address]. The Pap Smear is a screening test for cervical cancer. False negative results occur with all screening tests, emphasizing the need for rescreening at recommended intervals, and clinical correlation. CEA Collected: 11/25/2017 Status: F Source: [place] 3:53 PM CLINIC MAIN CAMPUS REPOSITORY TYPE CODE TESTS RESULT OUT OF RANGE REFERENCE UNITS LAB CEA 0.0-2.9 ng/mL CEA 1.3 Result Comment: Test analyzed by the [employer] DxI method. Performed By: #### CEA, CA199 #### [facility] [email or web address] [address] [place], [place] [address] CA 19-9 Collected: 11/25/2017 Status: F Source: [place] 3:53 PM [facility] REPOSITORY TYPE CODE TESTS RESULT OUT OF RANGE REFERENCE UNITS LAB CA199 <36 U/mL CA 19-9 <2 Result Comment: Note that patients must possess the ability to express the Artemio blood group antigen or they will be unable to produce the CA 19-9 antigen even in the presence of proven malignancy. Test analyzed by the [employer] DxI method. Performed By: #### CEA, CA199 #### [facility] [email or web address] [address], [place] [address] PROGRESS Observed: 11/25/2017 Status: COMPLETED Source: [place] 2:45 PM [facility] REPOSITORY HNO ID: [id number] Author: Erika Valadez Service: (none) Author Type: [...] CRYOCAUTER 1999 - COLONOSCOP W/ OR W/O [facility] SPEC 04/10/09 - COLONOSCOP W/ OR W/O [facility] SPEC 09/05/14 Repeat 2024 - COLPOSCOPY [...] atrophy/itching Ovarian cyst - CA-125 normal at [facility]. Check CEA AND CA-19. Discussed R/B/A of surgery vs repeat US. Will determine plan of care after tumor markers AND based on if patient needs GI surgery. Pap with hpv - patient overdue Vulvar itching AND atrophy - f/u for biopsy Erika Valadez MD CNOV Observed: 11/25/2017 Status: COMPLETED Source: [place] 2:25 PM [facility] [place] REPOSITORY Office Visit (WOOB) ASIA HAWLEY ([id number]) 1960 F Date Time Provider Department 11/25/17 [...] atrophy/itching Ovarian cyst - CA-125 normal at [facility]. Check CEA AND CA-19. Discussed R/B/A of [...] 04:04 PM Modules accepted: Orders Referring Provider: [facility] [[id number]] Allergies As of Date: 11/25/2017 Noted Allergy [...] human papillomavirus (HPV) [Z11.51] Order(s):CA 19-9 BLD [NKCF321] Order #: [id number] FUTURE CEA BLD [SQCEA] Order #: [id number] FUTURE PAP FLUID CERVICAL SCREENING [5369075] Order #: [id number] Prescriptions as of 11/25/2017 Sig: LEVOTHYROXINE 75 [...] Smear of Vagina and Vagin* 02/06/2010 Dyspareunia [EMG8153] INVALID FOR*02/06/2010 Fx Sacrum/Coccyx-Closed [S32.10XA, S32.2XXA] INVALID [...] 11/25/17 PROGRESS Observed: 11/23/2017 Status: COMPLETED Source: [place] 1:[address] [facility] OTHER CAMPUS REPOSITORY HNO ID: [id number] Author: Eva MannCtMARK Pierce Service: (none) Author Type: Clinical Inside Sales Associate Type: Progress Notes Filed: 11/23/2017 1:32 PM Note Text: NAME:Asia Hawley DATE: November 23, 2017 [facility]#: [id number] Upper Extremity X-Ray(s): Hand, right COMPLETED TECH ID SIGN: RANDEE MONSTER PROGRESS Observed: 11/23/2017 Status: COMPLETED Source: [place] 10:26 AM CLINIC OTHER CAMPUS REPOSITORY HNO ID: [id number] Author: Monika Romero Service: (none) Author Type: Occupational Therapist [...] by Name and Date of : Yes [facility] OCCUPATIONAL THERAPY EVALUATION [...] each in order to be able to tack picker small items. Patient will independently demonstrate [...] was facilitated with verbal and visual cuing. Self-Usp Management: 1: instructed in edema reduction techniques [...] custom orthotic fabrication and wearing schedule Billing: Gonzalez: Evaluation - Low Complexity ( 25606) Self Care / Home Management (10677): 1:1 time:15 minutes (1 unit: 8-22 mins) Therapeutic Exercise (83461): 1:1 time:15 minutes (1 unit: 8-22 mins) Fabricated forearm based thumb spica splint Total time: 45 minutes Monika Romero OT/[facility] CNTHERAPY Observed: 11/23/2017 Status: COMPLETED Source: [place] 10:15 AM CLINIC OTHER CAMPUS REPOSITORY [facility] ASIA HAWLEY ([id number]) 1960 F Date Time Provider Department 11/23/17 10:15 AM MONIKA ROMERO (OT) [facility] Date Time Provider Department Center 11/23/2017 10:15 AM [id number] ROMERO *[facility] Reason for Visit: OT EVAL [748] Primary [...] Take one(1) tablet daily. Progress Notes: Monika Romero, OT/L 11/23/2017 4:05 PM Signed Episode Visit Count: Visit count could not be calculated. Make sure you are using a visit which is associated with an episode. Therapist That Will Oversee The Plan Of Care: Monika Miller Start of Care Date: 11/23/17 Onset Date: 10/13/17 Patient Identified by Name and Date of : Yes [facility] OCCUPATIONAL THERAPY EVALUATION [...] each in order to be able to tack picker small items. Patient will independently demonstrate [...] was facilitated with verbal and visual cuing. Self-Usp Management: 1: instructed in edema reduction techniques [...] custom orthotic fabrication and wearing schedule Billing: Gonzalez: Evaluation - Low Complexity ( 41969) Self Care / Home Management (68121): 1:1 time:15 minutes (1 unit: 8-22 mins) Therapeutic Exercise (13029): 1:1 time:15 minutes (1 unit: 8-22 mins) Fabricated forearm based thumb spica splint Total time: 45 minutes Monika Romero OT/DYLAN Annotated image of OT HAND POST-OP EX'S PG4-WRIST last updated by Monika Romero on 11/23/2017 10:53 AM Annotated image of OT HAND TENDON GLIDING THUMB EX'S last updated by Monika Romero on 11/23/2017 10:53 AM PROGRESS Observed: 11/23/2017 Status: COMPLETED Source: [place] 9:52 AM [facility] REPOSITORY O ID: [id number] Author: Raul [place] Service: (none) Author Type: Physician Type: Progress Notes Filed: 12/15/2017 4:45 PM Note Text: Raul Clifton MD Department of Orthopaedics Orthopaedics [address] [place] [address] Dept: [phone] November 23, 2017 CHIEF COMPLAINT: Surgical Followup [...] Imaging: IMPRESSION: Postsurgical changes without apparent complication. Pressure Steamer Tender: MANJULAB ? Transcribe Date/Time: Nov 23 2017 ?9:53A [...] Hcl] This note was partially generated using Dragon voice recognition system, and there may be some incorrect words, spellings, and punctuation that were not noted in checking the note before saving. Raul Clifton MD CNOV Observed: 11/23/2017 Status: COMPLETED Source: [place] 9:45 AM [facility] REPOSITORY Office Visit (ORMDNA) ASIA HAWLEY ([id number]) 1960 F Date Time Provider Department 11/23/17 [...] in the home?: No Cast removed by [place] prior to x-ray. Patient denies any pain. Patient is scheduled for OT after her appointment today. Raul Clifton MD 12/15/2017 4:45 PM Signed Raul Clifton MD Department of Orthopaedics Orthopaedics [address] [place] [address] Dept: [phone] November 23, 2017 CHIEF COMPLAINT: Surgical Followup [...] Imaging: IMPRESSION: Postsurgical changes without apparent complication. Pressure Steamer Tender: JUAN ? Transcribe Date/Time: Nov 23 2017 [...] Hcl] This note was partially generated using Nearbox voice recognition system, and there may be [...] Smear of Vagina and Vagin* 02/06/2010 Dyspareunia [[id number]] INVALID FOR*02/06/2010 Fx Sacrum/Coccyx-Closed [S32.10XA, S32.2XXA] INVALID [...] 12/15/17 PROGRESS Observed: 11/23/2017 Status: COMPLETED Source: [place] 9:[address] [facility] REPOSITORY HNO ID: [id number] Author: Lola Roberts Ma Service: (none) Author Type: (none) Type: Progress Notes Filed: 12/15/2017 4:45 PM Note Text: Patient presents with: Surgical Followup: 5 weeks 5 days post op right CMC arthroplasty with LRTI AMB ROOMING INTAKE FLOWSHEET DATA Risk Screening Do you have concerns about personal safety or safety in the home?: No Cast removed by [place] prior to x-ray. Patient denies any pain. Patient is scheduled for OT after her appointment today. XR HAND 3V PA/LAT/OBL Observed: 11/23/2017 Status: F Source: [facility] 9:[address] [facility] OTHER CAMPUS REPOSITORY * * *Final Report* [...] wrist. IMPRESSION: Postsurgical changes without apparent complication. Pressure Steamer Tender: PSCB Transcribe Date/Time: Nov 23 2017 9:53A Dictated by : GABI ACOSTA MD This examination was interpreted and the report reviewed and electronically signed by: GABI ACOSTA MD on Nov 23 2017 9:59AM EST [id number] PROGRESS Observed: 11/19/2017 Status: COMPLETED Source: [place] 9:[address] [facility] REPOSITORY HNO ID: [id number] Author: Lola Grace Service: (none) Author Type: Physician Type: Progress Notes Filed: 11/20/2017 7:56 PM Note Text: Asia Hawley 1960 REFERRING PHYSICIAN: Priyanka Smtih MD CHIEF COMPLAINT: Consult (abdominal pain) HPI: [...] basis Tried to make an appointment at [facility] and was told that there [...] CRYOCAUTER 1999 - COLONOSCOP W/ OR W/O [facility] SPEC 04/10/09 - COLONOSCOP W/ OR W/O [facility] SPEC 09/05/14 Repeat 2024 - COLPOSCOPY [...] MD CNOV Observed: 11/18/2017 Status: COMPLETED Source: [place] 3:20 PM [facility] REPOSITORY Office Visit (GENSWS) ASIA HAWLEY ([id number]) 1960 F Date Time Provider Department 11/18/17 3:20 PM LOLA GRACE During your visit today, we recorded the following information about you: Temperature Pulse Blood pressure Weight 98.8 degrees 76/minute 106/70 83.6 kg Mariaa Valenzuela OTIS 11/19/2017 8:35 AM Signed REVIEW OF SYSTEMS: [...] Grace MD 11/20/2017 7:56 PM Signed Asia Hawley 1960 REFERRING PHYSICIAN: [...] basis Tried to make an appointment at [facility] and was told that there [...] Lola Grace MD Referring Provider: PRIYANKA SMITH [[id number]] Allergies As of Date: 11/18/2017 Noted Allergy [...] Smear of Vagina and Vagin* 02/06/2010 Dyspareunia [[id number]] INVALID FOR*02/06/2010 Fx Sacrum/Coccyx-Closed [S32.10XA, S32.2XXA] INVALID [...] screening? N/A Last Colonoscopy: None Mariaa Valenzuela OTIS Letter Text Encounter Status:Closed by MD LOLA GRACE on 11/20/17 EMERGENCY DEPARTMENT Observed: 11/16/2017 Status: F Source: [place] [facility] 4:31 PM [facility] Medical Records Department [address] [place] [address] Emergency Department Summary 11/16/17 1433 MR#: [id number] Acct: [id number] Name: ASIA HAWLEY Rep #: [id number] : 1960 57 From: Matt Pak MD PCP: Priyanka Smith MD Status: DEP [...] 3. Diverticulosis. This note was generated with Nearbox dictation software. It may contain incorrect words, spelling, and punctuation that were not noted in review of the chart prior to signing ED Disposition - Plan for ED Patient: Disposition: Home or Assisted Living 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: Abd Pain Instructions: ED Constipation, ED Cyst Ovarian Prescriptions: Magnesium Citrate [Citrate Of Magnesia] 300 ml PO X1 #1 bottle Referrals: Cleo Maynard CNM [Certified Nurse Clinical Reimbursement Specialist] - 3-5 Days Bar Grace MD [STAFF PHYSICIAN] - 1-2 Days if not improving What to do if you have Problems For any increased pain, shortness of breath, bleeding, nausea or vomiting, chest pain, or any unexpected problems, contact your Primary Care Provider. Call [facility] ([phone]) or report to the closest Emergency Room. Call 911 if necessary. 11/16/17 1631 <Electronically signed by Matt Pak MD> Date Matt Pak MD Cosigner Signature (If Indicated): Date CC: Priyanka Smith MD CA 125 SERIAL Collected: 11/16/2017 Status: F Source: [place] MONIT[facility] 1:05 PM [facility] TYPE CODE TESTS RESULT OUT OF RANGE REFERENCE UNITS LAB L3100.5010 0.0-38.1 U/mL Normal CA125 15.8 2303 Result Comment: Amelia ECLIA methodology Performed at: - [facility] [id number] Small Engine Mechanic: Lewis Kingston PhD, Phone: [phone] LAB L3726.0470 Normal CA 125 SM GRAPH Result Comment: Scanned image report available in EMR Performed By: #### L3100.4950 #### [facility] (refer to report for specific site) refer to report for address and phone number TRANSVAGINAL Observed: 11/16/2017 Status: F Source: [place] NON- 12:44 PM [facility] Imaging Services [address] [place] [address] Transvaginal Non- MR#: [id number] Acct: [id number] Name: ASIA HAWLEY Rep #: [id number] : 1960 F 57 From: Joaquin Ellington MD PCP: Priyanka Smith MD Status: REG ER Study: Transvaginal Non- Date of Exam: 11/16/17 Exam# [id number] Ordering Dr: Matt Pak MD STUDY: ULTRASOUND [...] Joaquin Ellington MD at 14:26 EDT Tel [phone], Service support , CC: Priyanka Smith MD; Matt Pak MD 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 URINALYSIS, COMPLETE Collected: 11/16/2017 Status: F Source: [place] 12:23 PM [facility] Order Comment: Order Date: 11/16/17 How [...] URINE SEEN Performed By: #### L400.0001 #### [facility] [place], [address] CBC W/DIFF, AUTOMATED Collected: 11/16/2017 Status: F Source: [place] 11:25 AM [facility] TYPE CODE TESTS RESULT OUT OF [...] Lymph 1.62 Performed By: #### L100.0100 #### [facility] [address] [facility] [place], [address] BASIC METABOLIC Collected: 11/16/2017 Status: F Source: [place] PROFILE (BMP) 11:25 AM [facility] TYPE CODE TESTS RESULT OUT OF [...] Performed By: #### L500.2500, L500.3400, L501.2450 #### [facility] [address] [place], [place], [id number] LIVER PROFILE Collected: 11/16/2017 Status: F Source: [place] 11:25 AM [facility] TYPE CODE TESTS RESULT OUT OF [...] Performed By: #### L500.2500, L500.3400, L501.2450 #### [facility] [address] [place], [address] LIPASE Collected: 11/16/2017 Status: F Source: [place] 11:25 AM [facility] TYPE CODE TESTS RESULT OUT OF RANGE REFERENCE UNITS LAB L501.2450 73-393 U/L Normal LIPASE 138 Performed By: #### L500.2500, L500.3400, L501.2450 #### [facility] [address] [facility], [address] ABDOMEN/PELVIS WITHOUT Observed: 11/16/2017 Status: F Source: [place] CONT 11:18 AM [facility] Imaging Services [address] [place] [address] Abdomen/Pelvis without Cont MR#: [id number] Acct: [id number] Name: ASIA HAWLEY Rep #: [id number] : 1960 F 57 From: Joaquin Ellington MD PCP: Luis BHATT,Priyanka Status: REG ER Study: Abdomen/Pelvis without Cont Date of Exam: 11/16/17 Exam# [id number] Ordering Dr: Matt Pak MD STUDY: CT [...] Joaquin Ellington MD at 12:34 EDT Tel [phone], Service support , CC: Priyanka Smith MD; Matt Pak MD 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 CNSALEEM Observed: 11/03/2017 Status: COMPLETED Source: [place] 1:00 PM [facility] REPOSITORY Office Visit (FAMPWS) ASIA HAWLEY ([id number]) 1960 F Date Time Provider Department 11/03/17 1:00 PM ANIKA HDZ (SAMIR) MALI During your visit today, we recorded the following information about you: Temperature Pulse Respiration Blood pressure 100 degrees 76/minute 14/minute 124/74 Weight 82.6 kg Anika Hdz APRN.CNP 11/03/2017 1:17 PM Signed 11/03/2017 Patient presents [...] intake - Increase fiber in diet - [place] low residue diet - CIPROFLOXACIN 500 MG TABLET - METRONIDAZOLE 500 MG TABLET - follow up if symptoms are not improving with treatment. Discussed red flags and when to be seen in ER. 2. Diverticulosis of large intestine without hemorrhage - ICD9: 562.10, ICD10: K57.30 Anika Hdz APRN.TELEPHONE OPERATOR Referring Provider: SELF [[id number]] Allergies As of [...] Smear of Vagina and Vagin* 02/06/2010 Dyspareunia [[id number]] INVALID FOR*02/06/2010 Fx Sacrum/Coccyx-Closed [S32.10XA, S32.2XXA] INVALID [...] 11/03/17 PROGRESS Observed: 11/03/2017 Status: COMPLETED Source: [place] 12:54 PM [facility] RE[facility]IT[facility] HNO ID: [id number] Author: Anika (Francine Hdz Service: (none) Author Type: Nurse Practitioner Type: [...] intake - Increase fiber in diet - [place] low residue diet - CIPROFLOXACIN 500 MG TABLET - METRONIDAZOLE 500 MG TABLET - follow up if symptoms are not improving with treatment. Discussed red flags and when to be seen in ER. 2. Diverticulosis of large intestine without hemorrhage - ICD9: 562.10, ICD10: K57.30 Anika Hdz APRN.TELEPHONE OPERATOR T4/FTI Collected: 11/01/2017 Status: F Source: [place] 9:15 AM [facility] REPOSITORY TYPE CODE TESTS RESULT OUT OF REFERENCE UNITS RANGE LAB T4 5.5-10.2 ug/dL T4 9.5 LAB T4U 0.91-1.19 T4 Uptake 1.11 LAB FTI 5.3-10.8 ug/dL FTI 8.6 Performed By: #### T4FTI, HFP, TSH, HACRNA #### [place] [address] [place] [address] HEPATIC FUNCTN PANEL Collected: 11/01/2017 Status: F Source: [place] 9:15 AM [facility] REPOSITORY TYPE CODE TESTS RESULT [...] By: #### T4FTI, HFP, TSH, HACRNA #### [place] [phone] TSH Collected: 11/01/2017 Status: F Source: [place] 9:15 AM [facility] REPOSITORY TYPE CODE TESTS RESULT OUT OF RANGE REFERENCE UNITS LAB TSH 0.400-5.500 uU/mL TSH 1.800 Performed By: #### T4FTI, HFP, TSH, HACRNA #### [place] [address] HEPATITIS ACUTE RNA Collected: 11/01/2017 Status: F Source: [place] 9:15 AM [facility] REPOSITORY TYPE CODE TESTS RESULT [...] By: #### T4FTI, HFP, TSH, HACRNA #### [place] [address] PROGRESS Observed: 10/25/2017 Status: COMPLETED Source: [place] 11:[address] [facility] REPOSITORY O ID: [id number] Author: Ghazal Osborn (Pa) Service: (none) Author Type: Physician Clinical Support Nurse Type: Progress Notes Filed: 10/25/2017 11:44 AM Note Text: Ghazal Osborn PA-C Department of Orthopaedics Orthopaedics [address] [facility] [address] Dept: [phone] Dept October 25, 2017 CHIEF COMPLAINT: Surgical [...] Hcl] This note was partially generated using Nearbox voice recognition system, and there may be some incorrect words, spellings, and punctuation that were not noted in checking the note before saving. Ghazal Osborn PA-C PROGRESS Observed: 10/25/2017 Status: COMPLETED Source: [place] 11:37 AM [facility] REPOSITORY HNO ID: [id number] Author: Lacy Crooks Ma Service: (none) Author [...] Ma CNOV Observed: 10/25/2017 Status: COMPLETED Source: [place] 11:00 AM [facility] Office Visit (ORTHWS) ASIA HAWLEY ([id number]) 1960 F Date Time Provider Department 10/25/17 11:00 AM GHAZAL OSBORN (KAUSHAL) ORTHWS During your visit today, we recorded [...] not hesitate to call. * Office phone: [phone] *Emergency to speak with nurse radio communications mechanician. Lacy Crooks Ma 10/25/2017 11:44 AM Signed [...] PA-C Department of Orthopaedics Orthopaedics [address] [facility] [address] Dept: [phone] Dept October 25, 2017 CHIEF COMPLAINT: Surgical [...] Hcl] This note was partially generated using Nearbox voice recognition system, and there may be [...] Smear of Vagina and Vagin* 02/06/2010 Dyspareunia [[id number]] INVALID FOR*02/06/2010 Fx Sacrum/Coccyx-Closed [S32.10XA, S32.2XXA] INVALID [...] not hesitate to call. * Office phone: [phone] *Emergency to speak with nurse radio communications mechanician. Encounter Status:Closed by GHAZAL OSBORN PA-C on 10/25/17 PROGRESS Observed: 10/25/2017 Status: COMPLETED Source: [place] 10:41 AM [facility] REPOSITORY HNO ID: [id number] Author: Lola Roberts Ma Service: (none) Author [...] PT ED Observed: 10/13/2017 Status: COMPLETED Source: [place] 4:35 PM [facility] REPOSITORY HNO ID: [id number] Author: Karla Sparrow) JUAN Mar Service: Nursing Author Type: Registered [...] Signed By: Karla Mar RN In Department: [facility] SURGERY OPERATIVE NO Observed: 10/13/2017 Status: COMPLETED Source: [place] 4:06 PM [facility] REPOSITORY HNO ID: [id number] Author: Raul Clifton Service: Orthopaedic Surgery Author Type: Physician Type: Operative Report Filed: 10/13/2017 4:16 PM Note Text: OPERATIVE/PROCEDURE REPORT LOG ID: [id number] SURGERY/PROCEDURE DATE: 10/13/2017 INCISION/PROCEDURE START TIME: 2:04 PM INCISION CLOSE/PROCEDURE END TIME: 3:19 PM SURGEON(S)/PROCEDURALIST(S) AND ROUTE SALES TRAINEE(S): Surgeon(s) and Role: * Raul Clifton - Primary Physician Clinical Support Nurse: Rosetta Jamil SURGERY/PROCEDURE(S): Right thumb, carpal metacarpal [...] both sharp dissection as well as a [place] elevator and while protecting the nearby structures, [...] and securing it with a series of eyjjxt-ka-xbxfm sutures with a 3-0 Tycron. This provided an excellent suspension and I took the remaining portion of the tendon and rolled it up into an anchovy and secured this again with ygrqrl-zt-dmigm Tycron, then buried it into the trapeziectomy site for the interposition. I then used my previously placed Tycron and secured the interposition without any subluxation. I copiously irrigated the surgical site. Bipolar electrocautery was used for hemostasis. I closed the capsule with a 3-0 Biosyn suture in a ddkfc-govx-shqf fashion. The skin edges were then closely [...] SIGNATURE: Raul Clifton MD PATIENT NAME: Asia Herbertiver DATE: October 13, 2017 TIME: 4:06 PM PAGER/CONTACT #: ANES POST Observed: 10/13/2017 Status: COMPLETED Source: [place] 3:51 PM [facility] REPOSITORY O ID: [id number] Author: Nasim Kelly Service: Anesthesiology Author Type: [...] SIGNATURE: Nasim Kelly MD PATIENT NAME: Asia Herbertiver DATE: October 13, 2017 TIME: 3:51 PM PAGER/CONTACT #: [phone] NURSING PROG Observed: 10/13/2017 Status: COMPLETED Source: [place] 1:28 PM [facility] REPOSITORY HNO ID: [id number] Author: Paula MannRn) JUAN Killian Service: (none) [...] Note Patient Name: Asia Hawley Patient Location: ID Surgery/ID Surgery M. Dimitris Elizabeth circulating. This note was completed by: Paula Killian RN ANES PREOP Observed: 10/13/2017 Status: COMPLETED Source: [place] 1:03 PM [facility] REPOSITORY HNO ID: [id number] Author: Nasim Kelly Service: Anesthesiology Author Type: [...] CRYOCAUTER 1999 - COLONOSCOP W/ OR W/O [facility] SPEC 04/10/09 - COLONOSCOP W/ OR W/O [facility] SPEC 09/05/14 Repeat 2024 - COLPOSCOPY [...] October 13, 2017 TIME: 1:03 PM CSN: [id number] PT ED Observed: 10/13/2017 Status: COMPLETED Source: [place] 12:17 PM [facility] OTHER CAMPUS REPOSITORY HNO ID: [id number] Author: Paula MannRn) JUAN Killian Service: (none) [...] Signed By: Paula Killian RN In Department: [facility] SURGERY NURSING PROG Observed: 10/05/2017 Status: COMPLETED Source: [place] 8:[address] [facility] REPOSITORY HNO ID: [id number] Author: Gwendolyn (Rn) JUAN Ye Service: Nursing Author Type: Registered Nurse Type: Nursing Progress Note Filed: 10/05/2017 8:47 AM Note Text: PACC Nurse Progress Note History AND Physical: PACC Visit Date: 10/01/17 at [facility] Original HANDP Date: 10/01/17 ED visit Date: [...] AND DIFFERENTIAL Collected: 10/01/2017 Status: F Source: [place] 2:[address] [facility] REPOSITORY TYPE CODE TESTS RESULT [...] k/uL Abs Lymph 2.14 LAB AMONO % Bamberg% 9.2 LAB AAMONO <0.87 k/uL Abs [place]berg 0.65 LAB AEOS % Eosin% 0.0 LAB AAEOS <0.46 k/uL Abs Eosin <0.03 LAB ABASO % Baso% 0.1 LAB AABASO <0.11 k/uL Abs Baso <0.03 LAB AUNRBC 0 /100 WBC NRBCs 0.0 LAB ABNRBC <0.01 k/uL Absolute nRBC <0.01 LAB DTYP DTYPE Auto Diff Performed By: #### CBCDIF, CMP #### [facility] [address] [place] [id number] COMP METABOLIC PANEL Collected: 10/01/2017 Status: F Source: [place] 2:52 PM [facility] REPOSITORY TYPE [...] 74-99 mg/dL Glucose 78 Result Comment: The [place] Diabetes Association (ADA) provides guidance for cutoff [...] Standards of Medical Care in Diabetes 2016, [place] [employer] Association. Diabetes Care. 2016.39(Suppl 1). LAB [...] GFR. Performed By: #### CBCDIF, CMP #### [facility] [address] [place] [id number] HISTORY PHYSICAL Observed: 10/01/2017 Status: COMPLETED Source: [place] 2:[address] [facility] REPOSITORY HNO ID: [id number] Author: Fela Bonds (Pa) Service: (none) Author Type: Physician Clinical Support Nurse Type: HANDP Filed: 10/01/2017 2:54 PM Note Text: HISTORY AND PHYSICAL EXAMINATION SERVICE DATE: 10/01/2017 SERVICE TIME: 2:15 PM PRIMARY CARE PHYSICIAN: Priyanka Smith MD REASON FOR VISIT: Asia Hawley is a 57 year old [...] CRYOCAUTER 1999 - COLONOSCOP W/ OR W/O [facility] SPEC 04/10/09 - COLONOSCOP W/ OR W/O [facility] SPEC 09/05/14 Repeat 2024 - COLPOSCOPY [...] meds. No history of TIAs, stroke, tremors, CYLINDER PRESS FEEDER tumor, impaired sensorium, hemiplegia, paraplegia, quadriplegia. Respiratory: [...] or arrhythmia. Negative for LE edema. No TN or heart surgery. GI: +heartburn-has used Omeprazole until 2 weeks ago.. No PUD or liver disease. <2 ETOH drinks a day. : No history of dysuria, frequency or incontinence,, stones or chronic kidney disease FOOD OPERATIONS MANAGER: Negative for abnormal vaginal bleeding, abnormal vaginal [...] SIGNATURE: Fela Bonds PA-C PATIENT NAME: Asia Herrera Chandan DATE: October 01, 2017 TIME: 2:15 PM PAGER/CONTACT #: PROGRESS Observed: 09/03/2017 Status: COMPLETED Source: [place] 10:22 PM [facility] REPOSITORY HNO ID: [id number] Author: Lala Henry Service: (none) Author Type: [...] CRYOCAUTER 1999 - COLONOSCOP W/ OR W/O [facility] SPEC 04/10/09 - COLONOSCOP W/ OR W/O [facility] SPEC 09/05/14 Repeat 2024 - COLPOSCOPY [...] Lala Henry MD Rheumatology and Immunology Pager: [phone] PROGRESS Observed: 08/05/2017 Status: COMPLETED Source: [place] 9:10 AM [facility] REPOSITORY HNO ID: [id number] Author: Raul Clifton Service: (none) Author Type: Physician Type: Progress Notes Filed: 08/05/2017 9:16 AM Note Text: Raul Clifton MD Department of Orthopaedics Orthopaedics [address] [facility] [address] Dept: [phone] Dept August 05, 2017 CHIEF COMPLAINT: New Patient (CMC arthritis right thumb REF: Lala Henry X-ray: 06/07/2017) HPI: Ms. Asia Hawley is a 57 year old female who presents with 8 out of 10 aching and stabbing and sharp pain in both thumbs but worse on the right. This has been bothering her for couple of years now. She previously saw a electrical service technician and has had cortisone injections as well as bracing. She is thinking about stopping her current employment because the pain in the thumb is so much. She also has recently seen a new electrical service technician and has been taking off most [...] MARKED CHANGES OF THE FIRST CMC JOINTS. Pressure Steamer Tender: PSCB ? Transcribe Date/Time: Jun 07 2017 [...] SPEC 04/10/09 - COLONOSCOP W/ OR W/O [facility] SPEC 09/05/14 Repeat 2024 - COLPOSCOPY [...] or electronic medical record. Lala Henry MD [address] [facility] [address] Priyanka Smith MD [address] [facility] [address] This note was partially generated using Nearbox voice recognition system, and there may be some incorrect words, spellings, and punctuation that were not noted in checking the note before saving. Raul Clifton MD CNOV Observed: 08/05/2017 Status: COMPLETED Source: [place] 8:40 AM [facility] REPOSITORY Office Visit (KRISTYN) ASIA HAWLEY ([id number]) 1960 F Date Time Provider Department 08/05/17 8:40 AM RAUL CLIFTON During your visit today, we recorded the following information about you: Pulse Blood pressure Weight Height 64/minute 140/84 85.2 kg 1.664 m Lacy Crooks Ma 08/05/2017 9:16 AM Signed AMB ROOMING [...] shoulder with x-ray done in 07/2017 at [facility] facility and would like if you would look at them with her as she does not understand x-ray report. Raul Clifton MD 08/05/2017 9:16 AM Signed Raul Clifton MD Department of Orthopaedics Orthopaedics [address] [facility] [address] Dept: [phone] Dept August 05, 2017 CHIEF COMPLAINT: New Patient (CMC arthritis right thumb REF: Lala Garveykimicandis X-ray: 06/07/2017) HPI: Ms. Asia Hawley is a 57 year old female who presents with 8 out of 10 aching and stabbing and sharp pain in both thumbs but worse on the right. This has been bothering her for couple of years now. She previously saw a electrical service technician and has had cortisone injections as well as bracing. She is thinking about stopping her current employment because the pain in the thumb is so much. She also has recently seen a new electrical service technician and has been taking off most [...] MARKED CHANGES OF THE FIRST CMC JOINTS. Pressure Steamer Tender: PSCB ? Transcribe Date/Time: Jun 07 2017 [...] CRYOCAUTER 1999 - COLONOSCOP W/ OR W/O [facility] SPEC 04/10/09 - COLONOSCOP W/ OR W/O [facility] SPEC 09/05/14 Repeat 2024 - COLPOSCOPY [...] or electronic medical record. Lala Henry MD [address] [facility] [address] Priyanka Smith MD [address] [facility] [address] This note was partially generated using Nearbox voice recognition system, and there may be some incorrect words, spellings, and punctuation that were not noted in checking the note before saving. Raul Clifton MD Referring Provider: LALA HENRY [[id number]] Allergies As of Date: 08/05/2017 Noted Allergy [...] 08/05/2017 8:28 AM >> LACY CROOKS MA Varsha Aug 05, 2017 8:28 AM Not currently taking. LEUCOVORIN CALCIUM 15 MG TABLET >> Lacy Crooks Ma 08/05/2017 8:27 AM >> LACY CROOKS MA Aug 05, 2017 8:27 AM Not taking. Problem List As Of Date 08/05/2017 Noted Resolved HYPOTHYROIDISM NOS [E03.9] Abnormal Papanicolaou Smear of Vagina and Vagin* 02/06/2010 Dyspareunia [TNJ5639] INVALID FOR*02/06/2010 Fx Sacrum/Coccyx-Closed [S32.10XA, S32.2XXA] INVALID FOR*02/06/2010 Fx Dorsal Vertebra-Closed [S22.009A] INVALID FOR*02/06/2010 Diverticulosis [K57.90] INVALID FOR* Calcaneal spur [M77.30] INVALID FOR* Hives [L50.9] Chronic urticaria [L50.8] INVALID FOR* Open wound(s) (multiple) of unspecified site(s)*INVALID FOR* Encounter Status:Closed by RAUL CLIFTON MD on 08/05/17 PROGRESS Observed: 08/05/2017 Status: COMPLETED Source: [place] 8:[address] [facility] [place] REPOSITORY O ID: [id number] Author: Lacy Crooks Ma Service: (none) Author [...] shoulder with x-ray done in 07/2017 at [facility] facility and would like if you would look at them with her as she does not understand x-ray report. DARRIN Observed: 08/05/2017 Status: COMPLETED Source: [place] 12:00 AM [facility] REPOSITORY Telephone (ORTHWS) ASIA HAWLEY ([id number]) 1960 F Date Time Provider Department 08/05/17 RAUL CLIFTON During your visit today, we recorded the following information about you: Lacy Crooks Ma 08/05/2017 9:18 AM Signed Please schedule patient for right CMC arthroplasty with ligament reconstruction and tendon interposition at [facility] on 10/13/2017. Please schedule post op appointments in [place] mid morning or early afternoon. Laine Prasad [facility] 08/05/2017 4:02 PM Signed Surgical request completed, post ops made and mailed. Please place an order for OT to follow the 2nd post op visit. Ghazal Osborn PA-C 08/06/2017 2:19 PM Signed Order for OT placed. Lacy Crooks Ma 08/10/2017 8:47 AM Signed Please schedule patient for OT to follow appointment with Dr. Clifton in [place] on 11/23/2017. Anika MARIN 08/10/2017 2:06 PM [...] joint of right hand [M18.11] Order(s):CONSULT TO SPRAYER OPERATOR [[id number]] Order #: [id number]: 1 Prescriptions as of 08/05/2017 Sig: NABUMETONE [...] Smear of Vagina and Vagin* 02/06/2010 Dyspareunia [YWN6134] INVALID FOR*02/06/2010 Fx Sacrum/Coccyx-Closed [S32.10XA, S32.2XXA] INVALID FOR*02/06/2010 Fx Dorsal Vertebra-Closed [S22.009A] INVALID FOR*02/06/2010 Diverticulosis [K57.90] INVALID FOR* Calcaneal spur [M77.30] INVALID FOR* Hives [L50.9] Chronic urticaria [L50.8] INVALID FOR* Open wound(s) (multiple) of unspecified site(s)*INVALID FOR* Primary osteoarthritis of first carpometacarpal*INVALID FOR* More... Encounter Status:Closed by GHAZAL OSBORN PA-C on 08/06/17 HOSP Observed: 08/05/2017 Status: COMPLETED Source: [place] 12:00 AM CLINIC OTHER CAMPUS REPOSITORY Patient:Asia Hawley MRN: <[id number]> Height:5' 5(1.651 m) Weight:189 lb (85.73 kg) [...] Thanks, Fela Bonds PA-C Electronically Signed Priyanka Smith MD 10/04/2017 3:37 PM Signed Noted; OK to proceed with planned surgery; just have her follow up with me after the surgery. Thanks. MD Gwendolyn Graff, RN, RN 10/05/2017 8:49 AM Signed Message left on pt cell VM of elevated liver function test, Dr Smith notified , ok to proceed with surgery and needs to follow up with him after surgery. My contact # left in case pt has any questions. Gwendolyn Ye RN PROGRESS Observed: 07/29/2017 Status: COMPLETED Source: [place] 12:[address] [facility] REPOSITORY HNO ID: [id number] Author: Ash Lopes (Rt) Service: (none) Author Type: Inside Sales Associate Type: Progress Notes Filed: 07/29/2017 12:14 PM [...] SHOULDER 2V Observed: 07/29/2017 Status: F Source: [place] AP/TRUE AP RT 12:13 PM [facility] REPOSITORY * * *Final Report* * * [...] tissues. No other significant abnormality. IMPRESSION: NORMAL Pressure Steamer Tender: PSCKeysha Transcribe Date/Time: Jul 29 2017 1:38P Dictated by : ISAK BALL MD This examination was interpreted and the report reviewed and electronically signed by: ISAK BALL MD on Jul 29 2017 1:40PM EST [id number] XR SHOULDER 2V Observed: 07/29/2017 Status: F Source: [place] AP/TRUE AP LT 12:13 PM [facility] REPOSITORY * * *Final Report* * * [...] tissues. No other significant abnormality. IMPRESSION: NORMAL Pressure Steamer Tender: JUAN Transcribe Date/Time: Jul 29 2017 1:38P Dictated by : ISAK BALL MD This examination was interpreted and the report reviewed and electronically signed by: ISAK BALL MD on Jul 29 2017 1:40PM EST [id number] Observed: 07/29/2017 Status: COMPLETED Source: [place] 11:00 AM [facility] REPOSITORY Office Visit (RHARMN) ASIA HAWLEY ([id number]) 1960 F Date Time Provider Department 07/29/17 [...] Lala Henry MD Rheumatology and Immunology Pager: [phone] Referring Provider: SELF [200] Allergies As of [...] BMI 30-34.9 [E66.9] Order(s):CONSULT TO PHYSICAL THERAPY [9122] Order #: [id number]: 1 XR SHOULDER LIMITED 2V AP/TRUE AP LT [[id number]] Order #: [id number] FUTURE XR SHOULDER OOWWBER1I AP/TRUE AP RT [[id number]] Order #: [id number] FUTURE CONSULT TO ORTHOPAEDIC SURGERY [[id number]] Order #: [id number]: 1 Prescriptions as of 07/29/2017 Sig: NABUMETONE [...] Smear of Vagina and Vagin* 02/06/2010 Dyspareunia [ITD5386] INVALID FOR*02/06/2010 Fx Sacrum/Coccyx-Closed [S32.10XA, S32.2XXA] INVALID FOR*02/06/2010 Fx Dorsal Vertebra-Closed [S22.009A] INVALID FOR*02/06/2010 Diverticulosis [K57.90] INVALID FOR* Calcaneal spur [M77.30] INVALID FOR* Hives [L50.9] Chronic urticaria [L50.8] INVALID FOR* Open wound(s) (multiple) of unspecified site(s)*INVALID FOR* Encounter Status:Closed by LALA HENRY MD on 09/04/17 ALLERGIES ALLERGIES DATE TYPE / CODE NAME / CODE REACTION SEVERITY SOURCE 06/12/2018 Drug cetirizine/F006 Unknown Unknown [place] Allergy[facility][id number]([facility] 08/06/2014 DRUG CETIRIZINE HCL ITCHING [place] INGREDI/[id number]([facility]) [place] Repository 08/13/2009 Environ/[id number](S [facility]) ALLERGIES Clinic Main [place] Repository 12/28/2006 Miscellaneous OTHER [place] Allergy/[id number]([facility]) [place] Repository ENCOUNTERS ENCOUNTERS ADMIT/DISCHARGE ACCOUNT ADMITTING ENCOUNTER LOCATION SOURCE NUMBER CLASS 06/12/2018/06/12/19 [id number] Emergency [address] ing:ED Repository 06/10/2018/06/11/19 [id number] Lana Lacy Inpatient [place] Althea Encounter [facility] ing:PCURoom: Repository WGO061Mvy: 1 06/10/2018 [id number] AbelardoLana ricardo Ambulatory BMSBuilding:B [place] Repository 06/10/2018 [id number] ReginoLana Ambulatory BMSBuilding:B [place] Repository 06/08/2018 [id number] AbelardoLana ricardo Ambulatory BMSBuilding:B [place] Repository 06/08/2018 [id number] AbelardoLana ricardo Ambulatory BMSBuilding:[place]ha [place] [facility] Repository 06/07/2018/06/07/19 [id number] Ambulatory [address] Repository 06/07/2018/06/08/19 [id number] Ambulatory [address] Repository 06/03/2018/06/05/19 [id number] Sementi, Inpatient [place] Encounter [facility] ing:ZT9Vsdz: Repository BM048Kgw: 1 06/03/2018 [id number] Sementi, Ambulatory BMSBuilding:B [place] Repository 06/03/2018 [id number] Sementi, Ambulatory BMSBuilding:B [place] [facility] Repository 06/01/2018 [id number] Sementi, Ambulatory BMSBuilding:B [place] [facility] Repository 06/01/2018 [id number] Sementi, Ambulatory BMSBuilding:B [place] [facility] Repository 06/01/2018 [id number] Sementi, Ambulatory BMSBuilding:B [place] [facility] Repository 06/01/2018/06/02/19 [id number] Ambulatory [address] Repository 05/31/2018/05/31/19 [id number] Emergency [address] ing:ED Repository 05/30/2018/05/30/19 [id number] Ambulatory [address] Main [place] Repository 05/28/2018/05/28/19 [id number] Ambulatory [address] [place] Repository 05/28/2018/05/30/19 [id number] Ambulatory [address] Main [place] Repository 02/03/2018/02/05/20 [id number] Ambulatory [address] Main [place] Repository 12/30/2017/01/01/20 [id number] Ambulatory [address] [place] Repository 12/23/2017/12/27/19 [id number] Lev, Inpatient [address] ing:YH7Rovw: Repository DS124Hjw: 1 12/22/2017 [id number] Ambulatory [facility] ing:LABSPEC Repository 12/22/2017/12/23/19 [id number] LOLA GRACE Ambulatory [address] Repository 12/21/2017/12/23/19 [id number] Ambulatory [address] [place] Repository 12/16/2017/12/17/19 [id number] Ambulatory [address] Other [place] Repository 12/16/2017/12/27/19 [id number] Ambulatory BMSBuilding:W [address] Repository 12/13/2017/12/14/19 [id number] Ambulatory [address] Main [place] Repository 12/13/2017/12/16/19 [id number] Ambulatory [address] Main [place] Repository 12/10/2017/12/14/19 [id number] Ambulatory [address] [place] Repository 12/09/2017/12/11/19 [id number] Ambulatory [address] [place] Repository 12/07/2017/12/24/19 [id number] Ambulatory [address] [place] Repository 12/07/2017/12/08/19 [id number] Ambulatory [address] Other [place] Repository 12/06/2017/12/07/19 [id number] Ambulatory [address] [place] Repository 12/01/2017/12/07/19 [id number] Ambulatory [address] Main [place] Repository 11/30/2017/12/01/19 [id number] Ambulatory [address] Other [place] Repository 11/29/2017 [id number] Ambulatory [facility] ing:RAD Repository 11/25/2017/11/26/19 [id number] Ambulatory [address] [place] Repository 11/25/2017/11/27/19 [id number] Ambulatory [address] [place] Repository 11/23/2017/12/17/19 [id number] Ambulatory [address] [place] Repository 11/23/2017/11/24/19 [id number] Ambulatory [address] Other [place] Repository 11/23/2017/11/24/19 [id number] Ambulatory [address] Other [place] Repository 11/18/2017/11/23/19 [id number] Ambulatory [address] Main [place] Repository 11/16/2017/11/17/19 [id number] Emergency [address] ing:ED Repository 11/03/2017/11/06/19 [id number] Ambulatory [facility] [place] Repository 11/01/2017/11/02/19 [id number] Ambulatory [facility] [place] Repository 10/25/2017/10/27/19 [id number] Ambulatory [facility] [place] Repository 10/13/2017 [id number] ETIENNE, Ambulatory [facility] Other [place] Repository 10/01/2017/10/02/19 [id number] Ambulatory [facility] [place] Repository 10/01/2017/10/02/19 [id number] Ambulatory [facility] [place] Repository 08/05/2017/08/07/19 [id number] Ambulatory [facility] [place] Repository 07/29/2017/07/30/19 [id number] Ambulatory [facility] [place] Repository 07/29/2017/09/07/19 [id number] Ambulatory [place] [facility] Main [place] Repository PAYERS PAYERS ENCOUNTER GUARANTOR PAYER SUBSCRIBER SOURCE 06/12/2018 ASIA Herrera Primary ASIA Hall [id number] Insurance:[facility] Number: [id number] [place] [id number] Repository 884[address]Omu: ([phone]) Date:2018-06-12c/o [phone] (HP) PGBA,LLC/[address] [place] [phone]: 06/12/2018 Secondary NOT GIVENUNK [place] Insurance:SELF PAY [facility] Number: Effective Repository Date:2018-06-12 06/10/2018 ASIA Herrera Primary ASIA Herrera [place] [id number] Insurance: SHRIVERDOB: [facility] Number: [id number] [place], [place] [id number] Repository 965[address]Kdz: ([phone]) Date:2018-06-08c/o [phone] (HP) PGBA,LLC/[address] [place] [phone]: 06/10/2018 Secondary NOT GIVENUNK [place] Insurance:SELF PAY [facility] Number: Effective Repository Date:2018-06-08 06/10/2018 ASIA Herrera Primary ASIA Herrera [place] [id number] Insurance: SHRIVERDOB: [facility] Number: [id number] [place], [place] [id number] Repository 91891Veq: ([phone]) Date:2018-06-08c/o [phone] (HP) PGBA,LLC/[id number] [place] [id number]: 06/10/2018 Secondary NOT GIVENUNK [place] Insurance:SELF PAY [facility] Number: Effective Repository Date:2018-06-10 06/10/2018 ASIA Herrera Primary ASIA Herrera Rafael [id number] Insurance: SHRIVERDOB: [facility] Number: [id number] [place], [place] [id number] Repository 295[address]Aoj: ([phone]) Date:2018-06-08c/o [phone] (HP) PGBA,LLC/[id number] [place] [phone]: 06/10/2018 Secondary NOT GIVENUNK [place] Insurance:SELF PAY [facility] Number: Effective Repository Date:2018-06-10 06/08/2018 ASIA Herrera Primary ASIA Hall [id number] Insurance: SHRIVERDOB: [facility] Number: [id number] [place], [place] [id number] Repository 97800Fpa: ([phone]) Date:2018-06-08c/o [phone] (HP) PGBA,LLC/[address] [place] [phone]: 06/08/2018 Secondary NOT GIVENUNK [place] Insurance:SELF PAY [facility] Number: Effective Repository Date:2018-06-08 06/08/2018 ASIA Herrera Primary ASIA Quirozoster [id number] Insurance: SHRIVERDOB: [facility] Number: [id number] [place], [place] [id number] Repository [address]Teu: ([phone]) Date:2018-06-08c/o [phone] (HP) PGBA,LLC[address] [place] [phone]: 06/08/2018 Secondary NOT GIVENUNK [place] Insurance:SELF PAY [facility] Number: Effective Repository Date:2018-06-08 06/03/2018 ASIA Herrera Primary ASIA Quirozoster [id number] Insurance: SHRIVERDOB: [facility] Number: [id number] [place], [place] [id number] Repository 94641Jgu: ([phone]) Date:2018-06-01c/o [phone] (HP) PGBA,LLC[address] [place] [phone]: 06/03/2018 Secondary NOT GIVENUNK [place] Insurance:SELF PAY [facility] Number: Effective Repository Date:2018-06-01 06/03/2018 ASIA Herrera Primary ASIA Herrera [place] [id number] Insurance: SHRIVERDOB: [facility] Number: [id number] [place], [place] [id number] Repository 188[address]Xhi: ([phone]) Date:2018-06-01c/o [phone] (HP) PGBA,LLC[address] [place] [phone]: 06/03/2018 Secondary NOT GIVENUNK [place] Insurance:SELF PAY [facility] Number: Effective Repository Date:2018-06-03 06/03/2018 ASIA Herrera Primary ASIA Herrera [place] [id number] Insurance: SHRIVERDOB: [facility] Number: [id number] [place], [place] [id number] Repository [address]Iri: ([phone]) Date:2018-06-01c/o [phone] () PGBA,LLC/[address] [place] [phone]: 06/03/2018 Secondary NOT GIVENUNK [place] Insurance:SELF PAY [facility] Number: Effective Repository Date:2018-06-03 06/01/2018 ASIA Herrera Primary ASIA Herrera [place] [id number] Insurance: SHRIVERDOB: [facility] Number: [id number] [place], [place] [id number] Repository [address]81[address]Rsf: ([phone]) Date:2018-06-01c/o [phone] () PGBA,LLC/[address] [place] [phone]: 06/01/2018 Secondary NOT GIVENUNK [place] Insurance:SELF PAY [facility] Number: Effective Repository Date:2018-06-01 06/01/2018 ASIA Herrera Primary ASIA Herrera [place] [id number] Insurance: SHRIVERDOB: [facility] Number: [id number] [place], [place] [id number] Repository [address]Hxe: ([phone]) Date:2018-06-01c/o [phone] (HP) PGBA,LLC/[address] [place] [phone]: 06/01/2018 Secondary NOT GIVENUNK [place] Insurance:SELF PAY [facility]: Effective Repository Date:2018-06-01 06/01/2018 ASIA Herrera Primary ASIA Quirozoster [id number] Insurance: [facility]DOB[facility] Number: [id number] [place], [place] [id number] Repository 92387Idk: ([phone]) Date:2018-06-01c/o [phone] (HP) PGBA,LLC/[address] [place] [phone]: 06/01/2018 Secondary NOT GIVENUNK [place] Insurance:SELF PAY [facility] Number: Effective Repository Date:2018-06-01 05/31/2018 ASIA Herrera Primary ASIA Quirozoster [id number] Insurance: SHRIVERDOB: [facility] Number: [id number] [place], [place] [id number] Repository [address]Yqc: ([phone]) Date:2018-05-31c/o [phone] (HP) PGBA,LLC/[address] [place] [phone]: 05/31/2018 Secondary NOT GIVENUNK [place] Insurance:SELF PAY [facility] Number: Effective Repository Date:2018-05-31 12/23/2017 Asia Herrera Primary Asia Hall [id number] Insurance: ShriverDOB: [facility] Number: [id number], [place] [id number] Repository 30[address]Int: (330) Date:2017-12-06c/o [phone] (HP) PGBA,LLC/[address] [place] [phone]: 12/23/2017 Secondary NOT GIVENUNK [place] Insurance:SELF PAY [facility] Number: Effective Repository Date:2017-12-06 12/22/2017 Asia Herrera Primary Asia Hall [id number] Insurance: ShriverDOB: [facility] Number: [id number], [place] [id number] Repository 618[address]Mjh: ([phone]) Date:2017-12-22c/o [phone] (HP) PGBA,LLC[address] [place] [phone]: 12/22/2017 Secondary NOT GIVENUNK [place] Insurance:SELF PAY [facility] Number: Effective Repository Date:2017-12-22 12/16/2017 Asia Herrera Primary Asia Hall [id number] Insurance: ShriverDOB: [facility] Number: [id number], [place] [id number] Repository 67[address]Iyh: ([phone]) Date:2017-12-06c/o [phone] (HP) PGBA,LLC/[address] [place] [phone]: 12/16/2017 Secondary NOT GIVENUNK [place] Insurance:SELF PAY [facility] Number: Effective Repository Date:2017-12-16 11/29/2017 Asia Herrera Primary Asia Hall [id number] Insurance: ShriverDOB: [facility] Number: [id number], [place] [id number] Repository [address]Veu: ([phone]) Date:2017-11-18c/o [phone] (HP) PGBA,LLC/[address] [place] [phone]: 11/29/2017 Secondary NOT GIVENUNK [place] Insurance:SELF PAY [facility] Number: Effective Repository Date:2017-11-18 11/16/2017 Asia Herrera Primary Asia M Rafael [id number] Insurance: [facility] Number: [id number], [place] [id number] Repository [address]Egu: 330) Date:2017-11-16c/o [phone] () ABHIJEET VALENCIA/[address]AJ[address]NXNBYWAEPORTAL, [place] [address]JS: 11/16/2017 Secondary NOT GIVENUNK [place] Insurance:SELF PAY [facility] Number: Effective Repository Date:2017-11-16
== END 2018-06-11 12:35 | disposition home or self-care (01) | DRG 645 ==
LOC: ED 07:23 → PCU 08:09
PROVIDERS: Physician Assistant; Admitting Provider Student in an Organized Health Care Education/Training Program; Emergency Provider Emergency Medicine; Family Provider Family Medicine; PCP Family Medicine
DX: E22.2 Syndrome of inappropriate secretion of antidiuretic hormone (principal); E03.9 Hypothyroidism, unspecified; Z90.49 Acquired absence of other specified parts of digestive tract; Z90.710 Acquired absence of both cervix and uterus; Z90.722 Acquired absence of ovaries, bilateral; R63.4 Abnormal weight loss; Z68.26 Body mass index [BMI] 26.0-26.9, adult; Z86.018 Personal history of other benign neoplasm; Z87.19 Personal history of other diseases of the digestive system; K21.9 Gastro-esophageal reflux disease without esophagitis
CPT/HCPCS: 36415; 71260; 74177; 80048; 85025; 99282; J7030; Q9967; A4216; J2405

== ENCOUNTER 2018-06-12 12:13 | Emergency (ER) | payer OTHER, SELFPAY ==
[2018-06-08 08:46] VITALS: BMI 26.7
[2018-06-12 12:14] VITALS: BP 137/84; PULSE 122; RESP 20; TEMP 37; O2SAT 97; BMI 26.6
--- NOTE | 2018-06-12 12:24 | EKG12_ITS ---
Test Reason : GEN ILLNESS Blood Pressure : / mmHG Vent. Rate : 113 BPM Atrial Rate : 113 BPM P-R Int : 134 ms QRS Dur : 084 ms QT Int : 354 ms P-R-T Axes : 007 011 045 degrees QTc Int : 485 ms Sinus tachycardia Nonspecific ST and T wave abnormality Abnormal ECG Confirmed by GONZALO BHATT, BARBER ([id number]), development editor ANI ROMERO ([id number]) on 06/14/2018 2:18:52 PM Referred By: RODRIGO Confirmed By:BARBER SÁNCHEZ MD
--- NOTE | 2018-06-12 12:25 | CT_ITS ---
STUDY: CT BRAIN WITHOUT CONTRAST REASON FOR EXAM: Female, 58 years old. Weakness RADIATION DOSAGE (If Supplied By Facility): CTDIvol = ( 44.99 ) mGy, DLP = ( 829.85 ) mGycm TECHNIQUE: Transaxial CT imaging of the brain was performed without administration of intravenous contrast material. Individualized dose optimization techniques were used for this CT. COMPARISON: None. FINDINGS: Normal soft tissue structures. Normal calvarium. Normal size ventricles and extra-axial spaces for the patient's age. Normal white matter tracts of the cerebral hemispheres. Normal basal ganglia and thalami. Normal brainstem. Normal cerebellum. There is no intracranial hemorrhage. There are no findings of an acute ischemic infarction. Normal visualized paranasal sinuses. CT/Brain/Head without Contrast IMPRESSION: Normal unenhanced CT scan of the brain. Electronically Signed: Pk Kirk DO at 14:01 EST Tel [phone], Service support ,
--- NOTE | 2018-06-12 12:34 | ED.DCSUM_ITS ---
- ER Visit Summary Date of Service: 06/12/18 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: Weakness, shaking, shortness of breath History of Present Illness: The patient is a 58 F with recurrent history of hyponatremia presents to the emergency department multiple complaints. Patient was just hospitalized this past week. She got discharged 2 days ago. 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 The etiology was uncertain. The patient was started on Lasix, salt tablets, and fluid restriction. She states that she is felt worse since her discharge. She has had tremulousness, increasing weakness, generalized malaise. She is also felt as if her heart was racing. She denies any fevers or chills. She denies any chest pain. She denies orthopnea. She is been urinating without issue. Physical Examination: Vital signs reviewed General: Well-nourished, well-developed Head: Normocephalic, atraumatic Eyes: Pupils equal and reactive, extraocular muscles intact Neck, supple, no lymphadenopathy Heart: Regular rate and rhythm Respiratory: No distress, clear bilaterally Abdomen: Soft, nontender, nondistended, no peritoneal signs Back: Nontender Extremities: Nontender, no edema, no cords Skin: Normal color no rash Neuro: Alert and oriented, no focal or lateralizing deficits Test Results: [] Emergency Department Course and Treatment: The patient presents with generalized weakness and tremulousness. She was recently started on high-dose Lasix and f luid restriction. I do suspect this is like electric abnormality. 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 With the patient's mild headache, I did obtain a head CT especially given her history of SIADH. This was within normal limits. Her EKG shows sinus tachycardia but no acute ischemic change. I do question some slight U waves. Patient is potassium is 3.1 and hemolyzed. My suspicion is that it is the Lasix that is driving her potassium down low. She was given oral potassium along with potassium replacement through the IV. On reevaluation, she is feeling markedly improved. At this time, I do feel that she is safe for outpatient therapy. I am going to start on potassium replacement. She does have follow-up this week with renal. She is comfortable with this plan of care. Treatment Plan: [] Disposition: Discharge Impression: Hypokalemia This note was generated with [employer] software. It may contain incorrect words, spelling, and punctuation that were not noted in review of the chart prior to signing ED Disposition - Plan for ED Patient: 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: General Illness Instructions: ED Potassium Deficiency Prescriptions: Potassium Chloride [K-Tab ER] 20 meq PO BID #20 tablet.er Referrals: Yasir Smith MD [Primary Care Provider] -
[2018-06-12 13:17] LABS: Absolute Lymphocyte Count 1.18 X10^3/ul (0.83-4.51); Absolute Neutrophil Count 7.7 X10^3/uL (2.0-7.7); Hemoglobin 13.8 g/dl (12.0-15.0); Lymphocyte # 1.18 X10^3/ul (4.0); Lymphocyte % 11.9 % (19-41); Mean Corp Hgb Conc 36.3 g/gl (32-36); Mean Corpuscular Hgb 29.8 pg (27.0-32.0); Mean Corpuscular Volume 82.1 fL (81-99); Mean Platelet Vol. 9.7 fl (6.2-12.0); Monocyte# 0.96 X10^3/uL; Monocyte% 9.7 % (0-10); Neutrophil # 7.74 X10^3/uL (2.7-7.7); Neutrophil % 78.1 % (47-70); Platelet Count 364 K/mm3 (150-450); RBC Distribution Width SD 35.6 fl (35.1-43.9); Red Blood Count 4.63 M/mm3 (4.2-5.4); White Blood Count 9.9 K/mm3 (4.4-11.0)
[2018-06-12 13:18] LABS: POSITIVE COUNT NO; POSITIVE DIFFERENTIAL NO; POSITIVE MORPHOLOGY NO
[2018-06-12 13:37] LABS: ALB/GLOB Ratio 0.9 RATIO (0.9-2.4); AST(SGOT) 38 U/L (15-37); Alanine Aminotransfer ALT/SGPT 58 U/L (13-56); Albumin, Serum 3.6 g/dL (3.2-5.0); Alkaline Phosphatase 95 U/L (45-117); Anion Gap 13 (5-15); BUN 23 mg/dL (7-18); BUN/Creat Ratio 22.8 RATIO (10-20); Calcium,Total 9.2 mg/dL (8.5-10.1); Chloride 92 mmol/L (98-107); Creatinine, Serum 1.01 mg/dL (0.55-1.02); EST Glomerular Filtration Rate 59 mL/min (>60); Est Glom Filt Rate - Afr Amer 72 mL/min (>60); Estimated Creatinine Clearance 55.45 ml/min; Globulin 4.1 g/dL (2.2-4.2); Glucose 119 mg/dL (74-106); Potassium 3.1 mmol/L (3.5-5.1); Protein, Total 7.7 g/dL (6.4-8.2); Sodium Level 132 mmol/L (136-145)
[2018-06-12 13:46] LABS: Lactic Acid 2.5 mmol/L (0.4-2.0)
--- NOTE | 2018-06-12 13:50 | ED.RN ---
CRITICAL LACTIC ACID OF 2.[address] PATEL NOTIFIED. NO NEW ORDERS RECEIVED.
[2018-06-12] MEDS: Potassium Chloride 10mEq/100mL 10 MEQ/100 ML IV.SOLN. 100 MEQ IV BOLUS ×2 (14:41→15:41)
[2018-06-12 14:42] VITALS: RESP 16
[2018-06-12 15:05] LABS: Bacteria 0 SEEN /hpf (None Seen); Mucous, Urine 0 SEEN /hpf (<or=2+); White Blood Cells 0 SEEN /hpf (0-5)
[2018-06-12 15:17] LABS: Color, Urine Yellow (Yellow); Glucose, Dipstick Normal (Normal); Ketone-Dipstick 15 mg/dl (Negative); Leukocyte Esterase-Dipstick Negative /ul (Negative); Nitrite-Dipstick Negative (Negative); Occult Blood-Urine 10 /ul (Negative); Protein-Dipstick Negative (Negative); Urine Bilirubin Dipstick Negative (Negative); Urine Clarity Sl. Cloudy (Clear); Urine Urobilinogen 8 mg/dl (Normal); Urine pH 6.5 (5.0 - 8.0)
[2018-06-12 15:30] LABS: Red Blood Cells-Urine 0-5 SEEN /hpf (0-5); Squamous Epithelial Cells - UA 0-5 SEEN /hpf (5-10)
[2018-06-12 15:31] LABS: Amorphous Sediment 1+ URATE
[2018-06-12 16:57] VITALS: BP 117/85; PULSE 92; RESP 18; O2SAT 100
[2018-06-12 16:58] VITALS: BP 117/85; PULSE 92; RESP 18; O2SAT 100
[2018-06-12 17:13] LABS: Reflex Lactate? Y
== END 2018-06-12 16:59 | disposition home or self-care (01) ==
PROVIDERS: Emergency Provider Emergency Medicine; Family Provider Family Medicine; PCP Family Medicine
DX: E87.6 Hypokalemia (principal); R00.0 Tachycardia, unspecified
CPT/HCPCS: 70450; 80053; 81001; 83605; 84484; 85025; 93005; 96365; 96366; 99285; J7030

== ENCOUNTER 2018-06-28 09:25 | Emergency (ER) | payer OTHER, SELFPAY ==
[2018-06-28 09:25] VITALS: BP 154/95; PULSE 126; RESP 15; TEMP 36.5; O2SAT 99; BMI 25.7
--- NOTE | 2018-06-28 09:53 | ED.VISSUMM ---
- ER Visit Summary Date of Service: 06/28/18 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: Weakness History of Present Illness: The patient is a 58 F with history of SIADH for the past month has had a few admissions for this presents with similar symptoms. She feels weak but not confused, her other main concern is the fact that she has disequilibrium and vertigo. This is also chronic. She has no vision changes. She was seen by the physician equity sales assistant at her PCPs office who thought she may have abnormal finger to nose and so was sent to the emergency department. Physical Examination: She appears anxious, in slight distress. Slightly dry mucous membranes, no obvious facial deformity No C-spine tenderness supple neck. Regular rate and rhythm without any obvious murmurs Clear lungs bilaterally speaking in full sentences without any obvious respiratory distress Abdomen soft and nontender no guarding or rebound Moves all extremities without any difficulty or pain. Skin does not show any obvious rashes or lesions, no trauma. Alert oriented ?3 with no gross focal deficit and she has a normal finger to nose to me, she has a slight tremor. Emergency Department Course and Treatment: She had an unremarkable workup with a sodium of 131. She does have some disequilibrium, this is likely secondary to sodium shifts, this is been chronic. She also has some vertiginous symptoms with this. She has had inpatient neurological workups but no outpatient workups. She has not seen an ENT. I will discharge the patient with Valium, she is already on meclizine with only minimal improvement. I will refer her to ENT. The vertigo is peripheral, it is positional, the paroxysms last just a few seconds and improved significantly when she holds her head still. Disposition: Discharge stable condition Impression: SIADH Vertigo This note was generated with [employer] dictation software. It may contain incorrect words, spelling, and punctuation that were not noted in review of the chart prior to signing ED Disposition - Plan for ED Patient: Disposition: Home or Assisted Living Instructions: ED Dizziness [facility] Prescriptions: Diazepam [Valium] 5 mg PO TID PRN 3 Days #20 tab PRN Reason: Vertigo Referrals: Harsha Dumont MD [STAFF PHYSICIAN] - Alistair Gabriel MD [STAFF PHYSICIAN] -
--- NOTE | 2018-06-28 09:58 | ED.DCSUM_ITS ---
- ER Visit Summary Date of Service: 06/28/18 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: Weakness History of Present Illness: The patient is a 58 F with history of SIADH for the past month has had a few admissions for this presents with similar symptoms. She feels weak but not confused, her other main concern is the fact that she has disequilibrium and vertigo. This is also chronic. She has no vision changes. She was seen by the physician dental assistant medical assistant at her PCPs office who thought she may have abnormal finger to nose and so was sent to the emergency department. Physical Examination: She appears anxious, in slight distress. Slightly dry mucous membranes, no obvious facial deformity No C-spine tenderness supple neck. Regular rate and rhythm without any obvious murmurs Clear lungs bilaterally speaking in full sentences without any obvious respiratory distress Abdomen soft and nontender no guarding or rebound Moves all extremities without any difficulty or pain. Skin does not show any obvious rashes or lesions, no trauma. Alert oriented ?3 with no gross focal deficit and she has a normal finger to nose to me, she has a slight tremor. Emergency Department Course and Treatment: She had an unremarkable workup with a sodium of 131. She does have some disequilibrium, this is likely secondary to sodium shifts, this is been chronic. She also has some vertiginous symptoms with this. She has had inpatient neurological workups but no outpatient workups . She has not seen an ENT. I will discharge the patient with Valium, she is already on meclizine with only minimal improvement. I will refer her to ENT. The vertigo is peripheral, it is positional, the paroxysms last just a few seconds and improved significantly when she holds her head still. Disposition: Discharge stable condition Impression: SIADH Vertigo This note was generated with [employer] dictation software. It may contain incorrect words, spelling, and punctuation that were not noted in review of the chart prior to signing ED Disposition - Plan for ED Patient: Disposition: Home or Assisted Living Instructions: ED Dizziness [facility] Prescriptions: Diazepam [Valium] 5 mg PO TID PRN 3 Days #20 tab PRN Reason: Vertigo Referrals: Harsha Dumont MD [STAFF PHYSICIAN] - Alistair Gabriel MD [STAFF PHYSICIAN] -
[2018-06-28 10:43] LABS: Absolute Lymphocyte Count 1.11 X10^3/ul (0.83-4.51); Absolute Neutrophil Count 8.1 X10^3/uL (2.0-7.7); Hemoglobin 14.8 g/dl (12.0-15.0); Lymphocyte # 1.11 X10^3/ul (4.0); Lymphocyte % 11.1 % (19-41); Mean Corp Hgb Conc 36.1 g/gl (32-36); Mean Corpuscular Hgb 29.5 pg (27.0-32.0); Mean Corpuscular Volume 81.7 fL (81-99); Mean Platelet Vol. 9.3 fl (6.2-12.0); Monocyte# 0.75 X10^3/uL; Monocyte% 7.5 % (0-10); Neutrophil # 8.09 X10^3/uL (2.7-7.7); Neutrophil % 81.2 % (47-70); POSITIVE COUNT NO; POSITIVE DIFFERENTIAL NO; POSITIVE MORPHOLOGY NO; Platelet Count 349 K/mm3 (150-450); RBC Distribution Width CV 12.4 % (11.6-14.6); RBC Distribution Width SD 36.5 fl (35.1-43.9); Red Blood Count 5.02 M/mm3 (4.2-5.4)
[2018-06-28] MEDS: Ondansetron 4 MG/2 ML Vial IV (10:51)
[2018-06-28] MEDS: Meclizine HCl 25 MG Tablet 50 MG PO (10:51)
[2018-06-28 10:55] VITALS: BP 129/94; PULSE 102; RESP 15; O2SAT 95
[2018-06-28 10:57] LABS: ALB/GLOB Ratio 0.8 RATIO (0.9-2.4); AST(SGOT) 31 U/L (15-37); Alanine Aminotransfer ALT/SGPT 48 U/L (13-56); Albumin, Serum 3.7 g/dL (3.2-5.0); Alkaline Phosphatase 104 U/L (45-117); Anion Gap 9 (5-15); BUN 14 mg/dL (7-18); Calcium,Total 9.5 mg/dL (8.5-10.1); Chloride 95 mmol/L (98-107); EST Glomerular Filtration Rate 91 mL/min (>60); Est Glom Filt Rate - Afr Amer 110 mL/min (>60); Estimated Creatinine Clearance 80.01 ml/min; Globulin 4.4 g/dL (2.2-4.2); Glucose 131 mg/dL (74-106); Protein, Total 8.1 g/dL (6.4-8.2); Sodium Level 131 mmol/L (136-145)
--- NOTE | 2018-06-28 10:57 | ED.RN ---
pt has been treated for vertigo in recent past at [facility]. Recent treatment for SAIDH
[2018-06-28 11:43] VITALS: BP 133/97; PULSE 98; RESP 22; O2SAT 96
[2018-06-28] MEDS: diazePAM 5 MG Tablet PO (11:47)
== END 2018-06-28 11:52 | disposition home or self-care (01) ==
PROVIDERS: Emergency Provider Emergency Medicine; Family Provider Family Medicine; PCP Family Medicine
DX: E22.2 Syndrome of inappropriate secretion of antidiuretic hormone (principal); H81.399 Other peripheral vertigo, unspecified ear; Z79.82 Long term (current) use of aspirin; Z79.899 Other long term (current) drug therapy
CPT/HCPCS: 80053; 85025; 96374; 99283; A4216; J2405

== ENCOUNTER 2024-03-03 13:55 | Emergency (ER) | payer MEDICARE, SELFPAY ==
[2024-03-03] VITALS (10 sets, daily range): BP systolic 98–138; BP diastolic 68–89; PULSE 107–129; RESP 16–24; TEMP 35.8; O2SAT 94–100; BMI 29.9
--- NOTE | 2024-03-03 14:15 | EKG12_ITS ---
Test Reason : SEIZURE Blood Pressure : / mmHG Vent. Rate : 122 BPM Atrial Rate : 122 BPM P-R Int : 128 ms QRS Dur : 084 ms QT Int : 310 ms P-R-T Axes : -25 -26 044 degrees QTc Int : 441 ms Sinus tachycardia Nonspecific ST and T wave abnormality Abnormal ECG Confirmed by Dk Parkinson ([id number]), telegraph editor ABDULKADIR LOPEZ ([id number]) on 03/06/2024 11:54:14 AM Referred By: ASAEL/MELISSA Confirmed By:Dk Parkinson
--- NOTE | 2024-03-03 14:31 | CT_ITS ---
INDICATION: Syncope EXAMINATION: CT BRAIN - CT Head or Brain W/O Contrast Injection TECHNIQUE: Multiple axial images were obtained of the head without intravenous contrast. The protocol utilizes one or more of the following dose reduction techniques: automated exposure control, adjustment of mA and/or kV according to patient size,and/or use of iterative reconstruction technique. IV Contrast dosage and agent: None. RADIATION DOSAGE (If Supplied By Facility): CTDIvol = ( 44.99 ) mGy, DLP = ( 779.24 ) mGycm COMPARISON: June 12, 2018 FINDINGS: BRAIN PARENCHYMA: No intra- or extra-axial hemorrhage. No evidence of acute infarct. No intracranial mass or mass effect. There is preservation of the diaz/white matter interface. Posterior fossa structures are unremarkable. CSF SPACES: Appropriate for age. No hydrocephalus. Basal cisterns are patent. CALVARIUM, SKULL BASE, PARANASAL SINUSES AND MASTOID AIR CELLS: Clear. No discrete lytic or blastic abnormalities. ORBITS: Both globes, extraocular muscles, optic nerves and retrobulbar fat appear unremarkable. ASPECTS Score for Acute Strokes: 10 CT/Brain/Head without Contrast IMPRESSION: No acute intracranial process. Electronically Signed: Marlee Mckeon MD at 15:00 EDT ,
--- NOTE | 2024-03-03 14:34 | CT_ITS ---
INDICATION: Trauma EXAMINATION: CT CERVICAL SPINE - CT Spine Cervical W/O Contrast Injection TECHNIQUE: Helically acquired images were obtained of the cervical spine. 2D reformatted images were reviewed. The protocol utilizes one or more of the following dose reduction techniques: automated exposure control, adjustment of mA and/or kV according to patient size,and/or use of iterative reconstruction technique. IV Contrast dosage and agent: None. RADIATION DOSAGE (If Supplied By Facility): CTDIvol = ( 22.30 ) mGy, DLP = ( 460.81 ) mGycm COMPARISON: Prior study dated: Thoracic spine dated October 13, 2008 FINDINGS: VERTEBRAE: No fracture or traumatic subluxation. There is an old T1 spinous process fracture. No discrete lytic or blastic abnormality. Normal alignment. Normal craniocervical junction and cervicothoracic junction. DISCS and SPINAL CANAL: There is multilevel degenerative disc disease. No critical stenosis. NECK SOFT TISSUES: No prevertebral soft tissue swelling. There is no cervical adenopathy. LUNG APICES: Clear. The there are low-attenuation nodules within the right lobe of the thyroid gland including partially calcified nodules. CT/Spine Cervical without Contras IMPRESSION: Multilevel degenerative changes. Nodules within the right lobe of the thyroid gland, recommend nonemergent thyroid ultrasound for further characterization. Electronically Signed: Marlee Mckeon MD at 15:11 EDT ,
[2024-03-03] MEDS: 0.9% Normal Saline (500mL Bag) 500 ML 1000 ML IV (14:45)
[2024-03-03 14:48] LABS: Absolute Lymphocyte Count 1.25 X10^3/uL (0.83-4.51); Absolute Neutrophil Count 16.2 X10^3/uL (2.0-7.7); Basophil# 0.06 X10^3/uL; Basophil% 0.3 % (0-1); Eosinophil# 0.01 X10^3/uL; Eosinophils% 0.1 % (0-5); Hemoglobin 12.8 g/dL (12.0-15.0); Lymphocyte # 1.25 X10^3/ul (0.83-4.51); Lymphocyte % 6.4 % (19-41); Mean Corp Hgb Conc 32.8 g/dL (32-36); Mean Corpuscular Volume 79.3 fL (81-99); Mean Platelet Vol. 10.7 fl (6.2-12.0); Monocyte# 1.73 X10^3/uL; Monocyte% 8.9 % (0-10); NRBC Flagged by Analyzer 0 % (0-5); Neutrophil # 16.23 X10^3/uL (2.7-7.7); Neutrophil % 83.3 % (47-70); POSITIVE DIFFERENTIAL YES; Platelet Count 455 K/mm3 (150-450); RBC Distribution Width CV 15.1 % (11.6-14.6); RBC Distribution Width SD 43.3 fl (35.1-43.9); Red Blood Count 4.92 M/mm3 (4.2-5.4); White Blood Count 19.5 K/mm3 (4.4-11.0)
[2024-03-03 14:49] LABS: Bacteria 0 SEEN /hpf (None Seen); Mucous, Urine 0 SEEN /hpf (<or=2+); Red Blood Cells-Urine 0 SEEN /hpf (0-5); Squamous Epithelial Cells - UA 0 SEEN /hpf (5-10)
--- NOTE | 2024-03-03 14:50 | RAD_ITS ---
INDICATION: Syncope EXAMINATION/TECHNIQUE: X-RAY - XR Chest 1 View COMPARISON: June 01, 2018 FINDINGS: LINES/DEVICES: None. LUNGS: There are few left basilar curvilinear opacities. There are surgical sutures projecting over the right upper lung. No pneumothorax. MEDIASTINUM AND CARDIOVASCULAR STRUCTURES: Cardiac silhouette not enlarged. Central airways and mediastinal contour are unremarkable. BONES AND SOFT TISSUES: Unremarkable. RAD/Chest 1 View (Portable) IMPRESSION: Minimal left basilar atelectasis and/or scarring. Electronically Signed: Marlee Mckeon MD at 15:04 EDT ,
[2024-03-03 14:52] LABS: Color, Urine Yellow (Yellow); Glucose, Dipstick Normal (Normal); Ketone-Dipstick 15 mg/dl (Negative); Leukocyte Esterase-Dipstick 500 /ul (Negative); Nitrite-Dipstick Negative (Negative); Occult Blood-Urine 250 /ul (Negative); Protein-Dipstick 100 mg/dl (Negative); Specific Gravity, Urine 1.015 (1.002-1.030); Urine Bilirubin Dipstick Negative (Negative); Urine Clarity Turbid (Clear); Urine Urobilinogen Normal (Normal); Urine pH 6.5 (5.0 - 8.0)
--- NOTE | 2024-03-03 14:57 | EDS_ITS ---
HPI History of Present Illness 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: Seizure Narrative Narrative: Chief complaint and HPI: Seizure-like activity. 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 Patient states she had 2 episodes of syncope on Wednesday. She states that she was talking on the phone and the next thing she remembers is lying down on the ground. She states this happened twice. She states she followed up with her PCP for this today in which she had reported seizure-like activity at the office. She states she had full body shaking without control of her body. She states her head hit the plexiglass. She states an employee came out and helped her sit down. She denies loss of consciousness during this episode. Did not bite her tongue. Did not urinate herself. Patient endorses decreased appetite for the past several days. Denies any fever, chills, lightheadedness, dizziness, chest pain, shortness of breath, abdominal pain, nausea, vomiting, dysuria, hematuria, diarrhea, constipation. Denies any weakness numbness or tingling. Review of systems: See HPI Medications: As listed on the chart Allergies: As listed on the chart PFSH: Per chart Vital signs: As listed on the chart. Reviewed. Physical exam: Gen: A&O x3, NAD Head: Normocephalic, atraumatic Eyes: No sclera icterus, conjunctiva clear, PERRL, EOMI ENT: Moist mucous membranes Neck: Trachea midline, No JVD, full range of motion, nontender CV: Tachycardic, regular rhythm, no murmurs, no peripheral edema Resp: Lungs CTA BL, no w/r/c GI: Abd soft, non-distended, non-tender, no r/r/g Musc: Full ROM, no deformity, resting left upper extremity tremor-states this has been ongoing which is why she was placed on Skin: Warm, dry Neuro: Alert, oriented, grossly intact, sensation intact Psych: Cooperative, appropriate mood and affect [facility] Medical History (Updated 03/03/24 @ 15:20 by Ericka Abdi) Prediabetes Hypothyroid Home Medications ?Medication ?Instructions ?Recorded ?Last Taken ?Type aspirin 81 mg chewable tablet 81 mg PO DAILY@0800 06/28/18 Unknown History cholecalciferol (vitamin D3) 25 1,000 unit PO DAILY 06/28/18 Unknown History mcg (1,000 unit) tablet (Vitamin D3) fludrocortisone 0.1 mg tablet 0.1 mg PO BID 06/28/18 Unknown History geriatric [id number] 1 ea PO DAILY 06/28/18 Unknown History (Complete Senior tablet) levothyroxine 75 mcg tablet 75 mcg PO DAILY 06/28/18 Unknown History potassium chloride 20 mEq 20 meq PO BID 06/28/18 Unknown History tablet,extended release(part/cryst) (Klor-Con M) sodium chloride 1 gram tablet 1 g PO TID 06/28/18 Unknown History Allergy/AdvReac Type Severity Reaction Status Date / Time cetirizine (From [facility]) Allergy Unknown Verified 03/03/24 13:56 azithromycin AdvReac Mild Diarrhea Verified 03/03/24 13:56 Surgical History (Updated 03/03/24 @ 15:20 by Ericka Abdi) Previous back surgery History of cholecystectomy History of colon resection Social History Smoking Status: Never smoker EXAM Physical Exam Const Vital Signs: 03/03/24 13:57 03/03/24 14:56 03/03/24 14:56 Temperature 96.5 F L Temperature Source Temporal Pulse Rate 129 H 122 H 122 H Respiratory Rate 18 16 16 Blood Pressure 116/89 H 107/79 107/79 Blood Pressure [Lying] Blood Pressure [Sitting (for 1 minute prior to obtaining)] Blood Pressure [Standing (for 1 minute prior to obtaining)] Blood Pressure Mean 98 88 88 Blood Pressure Mean [Lying] Blood Pressure Mean [Sitting (for 1 minute prior to obtaining)] Blood Pressure Mean [Standing (for 1 minute prior to obtaining)] Pulse Ox 100 99 100 Oxygen Delivery Method Room Air Room Air 03/03/24 16:00 03/03/24 16:28 03/03/24 17:00 Temperature Temperature Source Pulse Rate 123 H 118 H Respiratory Rate 16 16 Blood Pressure 110/78 132/89 H Blood Pressure [Lying] 120/74 Blood Pressure [Sitting (for 1 minute prior to obtaining)] 131/76 H Blood Pressure [Standing (for 1 minute prior to obtaining)] 138/79 H Blood Pressure Mean 88 103 Blood Pressure Mean [Lying] 89 Blood Pressure Mean [Sitting (for 1 minute prior to obtaining)] 94 Blood Pressure Mean [Standing (for 1 minute prior to obtaining)] 98 Pulse Ox 97 98 Oxygen Delivery Method Room Air 03/03/24 17:00 Temperature Temperature Source Pulse Rate 117 H Respiratory Rate 24 H Blood Pressure 132/89 H Blood Pressure [Lying] Blood Pressure [Sitting (for 1 minute prior to obtaining)] Blood Pressure [Standing (for 1 minute prior to obtaining)] Blood Pressure Mean 103 Blood Pressure Mean [Lying] Blood Pressure Mean [Sitting (for 1 minute prior to obtaining)] Blood Pressure Mean [Standing (for 1 minute prior to obtaining)] Pulse Ox 97 Oxygen Delivery Method MDM MDM MDM Narrative Medical decision making narrative: 63-year-old female presents for evaluation of seizure-like activity as well as syncope on Wednesday. Differential diagnosis includes but is not limited to intracranial abnormality, head bleed, electrolyte abnormality, ACS, PE, UTI. On presentation, patient is tachycardic in the 120s. EKG shows sinus tachycardia. Will give 500 cc bolus of fluids given shortage of fluids. Syncope workup ordered. EKG and chest x-ray reviewed. See below. D-dimer elevated at 3.44. Cannot rule out PE. CTA chest ordered. BMP shows MANJIT with creatinine of 3.1. Her labs from 2018 showed normal creatinine at that time. Patient was able to pull up her labs from January of this year and creatinine was 1.75. I suspect this is actually her baseline. Another 500 NS bolus ordered. UA positive for UTI and blood. Rocephin ordered. Urine culture sent. CBC with leukocytosis of 19.5. No anemia. Patient has thrombocytosis of 455. Given all of these findings cannot rule out infected urolithiasis therefore CT abdomen and pelvis without contrast ordered. Patient denying any abdominal pain or urinary type symptoms. CT head and cervical spine without any acute abnormality. CTA chest negative for PE. Patient does have nodules within the right lobe of the thyroid gland, will need outpatient thyroid ultrasound. Patient has circumferential wall thickening of the mid and distal esophagus concerning for esophagitis, cannot exclude a neoplastic process. She has a hiatal hernia. Troponin unremarkable. BMP unremarkable. TSH unremarkable. Magnesium level unremarkable. CT abdomen pelvis shows bilateral hydroureteronephrosis associated with a filling defect within the right proximal ureter may reflect a neoplastic process of bilateral ureteral wall thickening suggestive of urethritis. She has bladder wall thickening with adjacent stranding consistent with cystitis. Patient already received antibiotics. Given these concerns, urology was contacted contacted and patient was discussed with Dr. White. Given concern for possible neoplastic process she recommends transfer. Patient and family were updated of all the results and the findings. Patient confirmed understanding. She would like to be transferred to [facility] as she has seen them in the past. Patient was discussed with urology Dr. Orozco. She is in agreement with transfer however she does recommend medical admission. Patient was discussed with the hospitalist service at [facility]. Dr. Boyce excepted admission. They will call back once the patient has a bed and patient will be transferred. Patient signed out to oncoming physician. EKG: Interpreted by me/EM physician: EKG shows sinus tachycardia with a heart rate of 122, nonspecific ST changes. No ST elevation. Diagnostic: Interpreted by me/EM physician: Chest x-ray without pneumonia, effusion, cardiomegaly, pneumothorax. Patient does have some left basilar atelectasis. Impression: 1. Bilateral hydroureteronephrosis associated with a filling defect within the right proximal ureter may reflect a neoplastic process 2. Bilateral ureteral wall thickening suggestive of ureteritis 3. Pyelonephritis 3. Cystitis/UTI 4. MANJIT 5. Thrombocytosis 6. Syncope 7. Reported seizure-like activity Lab Data Labs: Laboratory Results - last 24 hr 03/03/24 03/03/24 03/03/24 14:20 14:45 17:10 WBC 19.5 H RBC 4.92 Hgb 12.8 Hct 39.0 MCV 79.3 L MCH 26.0 L MCHC 32.8 RDW Std Deviation 43.3 RDW Coeff of Vanessa 15.1 H Plt Count 455 H MPV 10.7 Immature Gran % (Auto) 1.000 H Neut % (Auto) 83.3 H Lymph % (Auto) 6.4 L Izard % (Auto) 8.9 Eos % (Auto) 0.1 Baso % (Auto) 0.3 Absolute Neuts (auto) 16.2 H Absolute Lymphs (auto) 1.25 Nucleated RBC % 0 Differential Comment Diff Path Review May foll D-Dimer Quant (PE/DVT) 3.44 H* Sodium 130 L Potassium 4.2 Chloride 99 Carbon Dioxide 20.0 L Anion Gap 12 BUN 68 H Creatinine 3.10 H Estim Creat Clear Calc 19.09 Est GFR (MDRD) Af Amer 19 L Est GFR (MDRD) Non-Af 16 L BUN/Creatinine Ratio 21.9 H Glucose 150 H Calcium 12.1 H Magnesium 2.4 Troponin I High Sens 15 15 B-Natriuretic Peptide 42.4 TSH 2.500 Urine Color Yellow Urine Clarity Turbid Urine pH 6.5 Ur Specific [place] 1.015 Urine Protein 100 H Urine Glucose (UA) Normal Urine Ketones 15 H Urine Occult Blood 250 H Urine Nitrite Negative Urine Bilirubin Negative Urine Urobilinogen Normal Ur Leukocyte Esterase 500 H Urine RBC 0 SEEN Urine WBC >100 SEEN Ur Squamous Epith Cells 0 SEEN Urine Bacteria 0 SEEN Urine Mucus 0 SEEN Radiography Diagnostic Testing: Clinical Impression(s) from Imaging Studies Brain CT 03/03/24 14:31 IMPRESSION: No acute intracranial process. Electronically Signed: Marlee Mckeon MD at 15:00 EDT , Cervical Spine CT 03/03/24 14:34 IMPRESSION: Multilevel degenerative changes. Nodules within the right lobe of the thyroid gland, recommend nonemergent thyroid ultrasound for further characterization. Electronically Signed: Marlee Mckeon MD at 15:11 EDT Reading Location ID and State: [facility] / [place] Tel , Service support , Chest X-Ray 03/03/24 14:50 IMPRESSION: Minimal left basilar atelectasis and/or scarring. Electronically Signed: Marlee Mckeon MD at 15:04 EDT , Chest CTA 03/03/24 15:19 IMPRESSION: No demonstrated pulmonary embolism or arterial dissection. Circumferential wall thickening of the mid and distal esophagus concerning for esophagitis, cannot exclude a neoplastic process. Hiatal hernia. Bilateral bronchiectasis. Bibasilar atelectasis and/or scarring. Atherosclerosis. Electronically Signed: Marlee Mckeon MD at 16:01 EDT , Abdomen/Pelvis CT 03/03/24 15:51 IMPRESSION: Bilateral hydroureteronephrosis associated with a filling defect within the right proximal ureter may reflect a neoplastic process and bilateral ureteral wall thickening suggestive of ureteritis. Bladder wall thickening with adjacent stranding consistent with cystitis. Colonic diverticulosis. Small hiatal hernia. Electronically Signed: Marlee Mckeon MD at 16:30 EDT , Discharge Plan Triage 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: Seizure ED Provider: [facility] Dx/Rx/DC Orders Prescriptions: No Action sodium chloride 1 GM tablet 1 g PO TID levothyroxine 75 MCG tablet 75 mcg PO DAILY potassium chloride [Klor-Con M20] 20 MEQ tablet 20 meq PO BID aspirin 81 MG tablet,chewable 81 mg PO DAILY@0800 fludrocortisone 0.1 MG tablet 0.1 mg PO BID geriatric [id number] [Complete Senior] 1 EACH tablet 1 ea PO DAILY cholecalciferol (vitamin D3) [Vitamin D3] 1,000 UNIT tablet 1,000 unit PO DAILY Primary Care Provider: Yasir Smith Referrals: Yasir Smith MD [Primary Care Provider] - Print Language: Macanese
[2024-03-03 15:03] LABS: White Blood Cells >100 SEEN /hpf (0-5)
[2024-03-03 15:13] LABS: Anion Gap 12 (5-15); BUN 68 mg/dL (7-18); BUN/Creat Ratio 21.9 RATIO (10-20); Calcium,Total 12.1 mg/dL (8.5-10.1); Chloride 99 mmol/L (98-107); EST Glomerular Filtration Rate 16 mL/min (>60); Est Glom Filt Rate - Afr Amer 19 mL/min (>60); Estimated Creatinine Clearance 19.09 ml/min; Glucose 150 mg/dL (74-106); Magnesium 2.4 mg/dL (1.6-2.6); Potassium 4.2 mmol/L (3.5-5.1); Sodium Level 130 mmol/L (136-145); Troponin-I HS (w/2H Reflex) 15 pg/mL (3.0-54.0)
[2024-03-03 15:16] LABS: D-Dimer Quantitative (DVT/PE) 3.44 FEU/ug/m (0.27-0.49)
--- NOTE | 2024-03-03 15:19 | CT_ITS ---
STUDY: CTA CHEST REASON FOR EXAM: Female, 63 years old. Elevated D-dimer, assess for a pulmonary embolus RADIATION DOSAGE (If Supplied By Facility): CTDIvol = ( 10.16 ) mGy, DLP = ( 439.92 ) mGycm TECHNIQUE: The examination was performed with the intravenous administration of IV 75mL [id number]-[id number]. Post-processing of the angiographic images was performed, with multiplanar reformation and 3D reconstruction. The protocol utilizes one or more of the following dose reduction techniques: automated exposure control, adjustment of mA and/or kV according to patient size,and/or use of iterative reconstruction technique. COMPARISON: June 08, 2018 FINDINGS: There is a stable low-attenuation nodule within the right lobe of the thyroid gland. Normal enhancement of the main pulmonary artery and right and left pulmonary arteries. Normal enhancement of the bilateral peripheral pulmonary arteries. There is no demonstrated pulmonary embolism. Normal thoracic aorta and visualized great vessels. There is no demonstrated aortic dissection. Normal heart and pericardium. There is circumferential wall thickening of the mid and distal esophagus. There is a small hiatal hernia. Normal hilar regions. There is mild bilateral bronchiectasis most pronounced within the lower lungs. There is bibasilar atelectasis and/or scarring Normal chest wall structures. There is a stable T11 superior endplate deformity. Normal visualized upper abdomen. CT/CTA Chest W/WO Contrast IMPRESSION: No demonstrated pulmonary embolism or arterial dissection. Circumferential wall thickening of the mid and distal esophagus concerning for esophagitis, cannot exclude a neoplastic process. Hiatal hernia. Bilateral bronchiectasis. Bibasilar atelectasis and/or scarring. Atherosclerosis. Electronically Signed: Marlee Mckeon MD at 16:01 EDT ,
--- OUTSIDE RECORDS SUMMARY | 2024-03-03 15:35 | XMS RPT_ITS | CCD ---
Author Organization [facility] Care Team Providers Care Reeler Operator Name Role Phone Priyanka Smith MD Primary Care Provider Regulo Mendoza MD Unavailable MATHEW YANG JR Referring Unavaila PRIYANKA Gilbert Primary Care Unavailable PRIYANKA SMITH Primary Care Unavailable MATHEW YANG JR Referring Unavaila ble PRIYANKA SMITH Primary Care Unavailable PRIYANKA SMITH Primary Care Unavailable JOHN MG Attending Unavailable JOHN MG Admitting Unavailable Priyanka Smith MD Primary Care Provider Regulo Mendoza MD Unavailable Priyanka Smith MD Primary Care Provider MATHEW YANG JR Referring Unavaila ble MATHEW YANG JR Attending Unavaila MATHEW Garcia JR Admitting Unavaila ble PRIYANKA SMITH Primary Care Unavailable PRIYANKA SMITH Primary Care Unavailable ROWAN TEMPLE Attending Unavailable PRIYANKA SMITH Primary Care Unavailable BARLEY, TARIQ Attending Unavailable MATHEW YANG JR Referring Unavaila ble PRIYANKA SMITH Primary Care Unavailable PRIYANKA SMITH Primary Care Unavailable ROWAN TEMPLE Referring Unavailable MATHEW YANG JR Referring Unavaila ble PRIYANKA SMITH Primary Care Unavailable PRIYANKA SMITH Primary Care Unavailable BARLEY, TARIQ Attending Unavailable PRIYANKA SMITH Primary Care Unavailable BARLEY, TARIQ Referring Unavailable PRIYANKA SMITH Primary Care Unavailable BARLEY, TARIQ Referring Unavailable PRIYANKA SMITH Primary Care Unavailable WILEY BENITEZ Attending Unavailable WILEY BENITEZ Referring Unavailable PRIYANKA SMITH Primary Care Unavailable ELDERBROCK, PRIYANKA D Referring Unavailable AMTHEW YANG JR Attending Unavaila ble ELDERBROCK, PRIYANKA D Primary Care Unavailable ELDERBROCK, PRIYANKA D Primary Care Unavailable ELDERBROCK, PRIYANKA D Referring Unavailable ELDERBROCK, PRIYANKA D Primary Care Unavailable ELDERBROCK, PRIYANKA D Attending Unavailable MATHEW YANG JR Referring Unavaila ble ELDERBROCK, PRIYANKA D Primary Care Unavailable ELDERBROCK, PRIYANKA D Primary Care Unavailable MURIEL LOPEZ Referring Unavailable MURIEL LOPEZ Attending Unavailable MATHEW YANG JR Attending Unavaila ble ELDERBROCK, PRIYANKA D Primary Care Unavailable ELDERBROCK, PRIYANKA D Primary Care Unavailable ELDERBROCK, PRIYANKA D Referring Unavailable ELDERBROCK, PRIYANKA D Primary Care Unavailable JACQUELINE CARPENTER Attending Unavailable ELDERBROCK, PRIYANKA D Primary Care Unavailable WILEY BENITEZ Attending Unavailable WILEY BENITEZ Referring Unavailable ELDERBROCK, PRIYANKA D Primary Care Unavailable JACQUELINE CARPENTER Referring Unavailable AVTAR ROBERTS Attending Unavailable JACQUELINE CARPENTER Attending Unavailable ELDERBROCK, PRIYANKA D Primary Care Unavailable ELDERBROCK, PRIYANKA D Primary Care Unavailable ROWAN TEMPLE Referring Unavailable ELDERBROCK, PRIYANKA D Primary Care Unavailable JACQUELINE CARPENTER Referring Unavailable ELDERBROCK, PRIYANKA D Primary Care Unavailable SELF Referring Unavailable JACQUELINE CARPENTER Attending Unavailable Allergies Allergy Classification Reported Allergen(s) Allergy Type Date of Onset Reaction(s) Facility Cetirizine (4 sources) Cetirizine Drug Allergy 5 Itching [facility] Macrolides (antibiotic) (4 sources) Erythromycin Drug Allergy 3 Diarrhea [facility] (20 sources) Cetirizine; Translations: [CETIRIZINE HCL] Drug Allergy 5 Itching [facility] (20 sources) Seasonal allergy; Translations: [SEASONAL ALLERGIES] Propensity to adverse reactions 0 [facility] Work Phone: (20 sources) environmental [Other] Propensity to adverse reactions 7 [facility] Work Phone: (20 sources) Erythromycin; Translations: [ERYTHROMYCIN] Drug Allergy 3 Diarrhea [facility] (2 sources) OTHER; Translations: [OTHER] Propensity to adverse reactions (disorder) 7 [facility] Other [place] [facility] Medications Current Medications Medication Drug Class(es) Dates Sig (Normalized) Sig (Original) amitriptyline hydrochloride 50 mg oral tablet (7 sources) Tricyclic Antidepressant Start: 01-31-2024 take 1 tablet by mouth once daily at bedtime amitriptyline (ELAVIL) 50 mg tablet Indications: Chronic interstitial cystitis Take 1 tablet by mouth daily at bedtime. 30 tablet 1 01/31/2024 Active Start: 01-11-2024 End: 01-31-2024 take 1 tablet by mouth once daily at bedtime amitriptyline (ELAVIL) 10 mg tablet Take 1 tablet by mouth daily at bedtime. And as directed 60 tablet 2 01/11/2024 01/31/2024 Discontinued amoxicillin 875 mg / clavulanate 125 mg oral tablet (3 sources) Penicillin-class Antibacterial Start: 08-12-2022 End: 08-19-2022 take 1 tablet by mouth twice daily amoxicillin-clavulanic acid (AUGMENTIN) 875-125 mg per tablet Take 1 tablet by mouth twice daily for 7 days. 14 tablet 0 08/12/2022 08/19/2022 Active Comment on above: Take 1 tablet by bradley th twice daily for 7 days. biotin 5 mg oral tablet (12 sources) take 1 tablet by mouth once daily biotin 5 mg tab Take 5 mg by mouth once daily. Active calcium carbonate 1500 mg / cholecalciferol 0.01 mg oral tablet (20 sources) Vitamin D Start: 02-23-2022 End: 02-25-2023 take 1 tablet by mouth twice daily calcium carbonate 600 mg-cholecalciferol 400 units 600 mg-10 mcg (400 unit) tab Take 1 tablet by mouth two times a day. 180 tablet 1 02/25/2023 Active Comment on above: Take 1 tablet by bradley th twice daily. Take 1 tablet by bradley th two times a day. docusate sodium 100 mg oral capsule (3 sources) Start: 01-28-2023 End: 02-27-2023 take 1 capsule by mouth twice daily docusate sodium (COLACE) 100 mg capsule Take 1 capsule by mouth twice daily. 60 capsule 2 01/28/2023 02/27/2023 Active Comment on above: Take 1 capsule by mo [facility] twice daily. doxycycline hyclate 100 mg oral tablet (1 source) Tetracycline-class Drug Start: 08-20-2022 End: 08-30-2022 take 1 tablet by mouth twice daily doxycycline (VIBRA-TABS) 100 mg tablet Indications: Bronchitis Take 1 tablet by mouth twice daily for 10 days. 20 tablet 0 08/20/2022 08/30/2022 Active Comment on above: Take 1 tablet by bradley twice daily for 10 days. estradiol 0.1 mg/ml vaginal cream (20 sources) Estrogen Start: 04-01-2022 End: 12-01-2023 estradiol (ESTRACE) 0.01 % (0.1 mg/gram) vaginal cream Use 1 g vaginally two times a week. 42.5 g 4 12/01/2023 Active Start: 11-26-2021 End: 03-31-2022 estradiol (ESTRACE) 0.01 % ( 0.1 mg/gram) vaginal cream Use 3 g vaginally once daily. 42.5 g 1 11/26/2021 03/31/2022 Discontinued Comment on above: Use 3 g vaginally on ce daily. Use 1 g vaginally tw o times a week. L.acidophilus-L.rhamn osus (PROBIOTIC) 15 billion cell capsule (20 sources) take 1 capsule by mouth once daily L.acidophilus-L.rham nosus (PROBIOTIC) 15 billion cell capsule Take 1 capsule by mouth once daily. Active take 1 capsule by [facility] once daily L.acidophilus-L.rhamnosus (PROBIOTIC) 15 billion cell capsule Take 1 capsule by mouth once daily. 0 Active Comment on above: Take 1 capsule by [facility] once daily. levothyroxine sodium 0.1 mg oral tablet (20 sources) l-Thyroxine Start: 06-04-19 End: 06-06-19 take 1 tablet by mouth once daily levothyroxine (SYNTHROID) 100 mcg tablet Indications: Hypothyroidism, unspecified type Take 1 tablet by mouth once daily. Take on empty stomach 90 tablet 3 06/07/2023 06/06/2024 Active Comment on above: Take 1 tablet by bradley once daily. Take on empty stomach metoclopramide 5 mg oral tablet (20 sources) Dopamine-2 Receptor Antagonist Start: 07-23-19 End: 08-09-19 24 take 1 tablet by mouth three times daily metoclopramide HCl (REGLAN) 5 mg tablet Take 1 tablet by mouth three times a day. 90 tablet 5 08/09/2023 Active Comment on above: Take 1 tablet by bradley three times daily. Take 1 tablet by bradley three times a day. multivit-min/iron/foli c acid/K (MULTI-DAY PLUS MINERALS ORAL) (20 sources) take 1 capsule by mouth once daily multivit-min/iron/foli c acid/K (MULTI-DAY PLUS MINERALS ORAL) Take 1 capsule by mouth once daily. Active take 1 capsule by mouth once jet ly multivit-min/iron/folic acid/K (MULTI-DAY PLUS MINERALS ORAL) Take 1 capsule by mouth once daily. 0 Active Comment on above: Take 1 capsule by mo [facility] once daily. mycophenolate mofetil 500 mg oral tablet (20 sources) Start: 04-17-2022 End: 05-10-2023 mycophenolate Mofetil (CELLCEPT) 500 mg tablet Take 2 in am and one in pm 270 tablet 3 05/10/2023 Active Start: 07-22-2021 End: 04-17-2022 take 1 tablet by mouth twice daily mycophenolate Mofetil (CELLCEPT) 500 mg tablet Take 1 tablet by mouth twice daily. 60 tablet 5 02/16/2022 04/17/2022 Discontinued Start: 06-11-2020 End: 10-07-2020 take 1 tablet by mouth twice daily mycophenolate Mofetil (CELLCEPT) 500 mg tablet Take 1 tablet by mouth twice daily. 60 tablet 3 06/11/2020 10/07/2020 Discontinued Comment on above: Take 1 tablet by bradley twice daily. Take 2 in am and one in pm omeprazole 20 mg delayed release oral capsule (12 sources) Proton Pump Inhibitor Start: End: take 1 capsule by mouth once daily before breakfast omeprazole (PRILOSEC) 20 mg capsule Indications: Nausea , Epigastric pain Take 1 capsule by mouth daily before breakfast. 1/2 hr before meal. 90 capsule 3 08/06/2021 12/19/2021 Discontinued Comment on above: Take 1 capsule by mo [facility] daily before breakfast. 1/2 hr before meal. phenazopyridine hydrochloride 200 mg oral tablet (7 sources) Start: End: take 1 tablet by mouth every eight hours as needed phenazopyridine (PYRIDIUM) 200 mg tablet Take 1 tablet by mouth three times daily as needed. 9 tablet 0 11/05/2021 12/19/2021 Discontinued Comment on above: Take 1 tablet by bradley three times daily as needed. polyethylene glycol 3350 54085 mg powder for oral solution (3 sources) Osmotic Laxative Start: End: polyethylene glycol 3350 (MIRALAX) 17 gram/dose powder Take 17 g by mouth once daily. Dissolve dose in 4 - 8 ounces of liquid and take as directed. 476 g 2 01/28/2023 02/27/2023 Active Comment on above: Take 17 g by mouth o nce daily. Dissolve dose in 4 - 8 ounces of liquid and take as directed. predniSONE 5 mg oral tablet (20 sources) Start: End: take 1 tablet by mouth once daily predniSONE (DELTASONE) 5 mg tablet take 1 tablet by mouth once daily. 30 tablet 5 02/01/2024 Active Start: 02-16-2022 End: 10-30-2022 predniSONE (DELTASONE) 20 mg tablet Take 40 mg daily for 5 days then, 30 mg daily for 5 days, then 20 mg for 5 days then back to 10 mg a day 20 tablet 02/16/2022 10/30/2022 Discontinued Start: 08-12-2021 End: 12-22-2022 take 1 tablet by mouth once daily predniSONE (DELTASONE) 10 mg tablet Take 1 tablet by mouth once daily. 30 tablet 3 02/16/2022 08/19/2022 Discontinued Start: 04-18-2020 End: 07-17-2020 take 2.5 tablets by mouth once daily predniSONE (DELTASONE) 20 mg tablet Take 2.5 tablets by mouth once daily. 75 tablet 2 04/18/2020 07/17/2020 Comment on above: Take 1 tablet by bradley once daily. Take 40 mg daily for 5 days then, 30 mg daily for 5 days, then 20 mg for 5 days then back to 10 mg a day propranolol hydrochloride 20 mg oral tablet (20 sources) beta-Adrenergic Ana Start: 11-11-2023 End: 05-09-2024 take 1 tablet by mouth twice daily propranolol (INDERAL) 20 mg tablet Indications: Tremor Take 1 tablet by mouth two times a day. 60 tablet 5 11/11/2023 05/09/2024 Active Start: 10-14-2023 End: 04-11-2024 take 1 tablet by mouth twice daily propranolol (INDERAL) 10 mg tablet Indications: Tremor Take 1 tablet by mouth two times a day. 60 tablet 5 10/14/2023 04/11/2024 Active sulfamethoxazole 800 mg / trimethoprim 160 mg oral tablet (6 sources) Dihydrofolate Reductase Inhibitor Antibacterial, Sulfonamide Antimicrobial Start: 09-02-2023 End: 09-05-2023 take 1 tablet by mouth twice daily sulfamethoxazole-trimethoprim (BACTRIM DS) 800-160 mg per tablet Indications: Urinary frequency , Dysuria Take 1 tablet by mouth two times a day for 3 days. 6 tablet 0 09/02/2023 09/05/2023 Active Start: 09-14-2022 End: 09-21-2022 take 1 tablet by mouth twice daily sulfamethoxazole-trimethoprim (BACTRIM D S) 800-160 mg per tablet Take 1 tablet by mouth twice daily for 7 days. 14 tablet 0 09/14/2022 09/21/2022 Active Start: 05-26-2022 End: 05-31-2022 take 1 tablet by mouth twice daily sulfamethoxazole-trimethoprim (BACTRIM D S) 800-160 mg per tablet Indications: Acute cystitis with hematuria Take 1 tablet by mouth twice daily for 5 days. 10 tablet 0 05/26/2022 05/31/2022 Active Start: 03-23-2022 End: 03-26-2022 take 1 tablet by mouth twice daily sulfamethoxazole-trimethoprim (BACTRIM D S) 800-160 mg per tablet Indications: Acute cystitis with hematuria Take 1 tablet by mouth twice daily for 3 days. 6 tablet 0 03/23/2022 03/26/2022 Active Comment on above: Take 1 tablet by bradley th twice daily for 3 days. Take 1 tablet by bradley th twice daily for 5 days. Take 1 tablet by bradley th twice daily for 7 days. Take 1 tablet by bradley th two times a day for 3 days. trospium chloride 20 mg oral tablet (20 sources) Cholinergic Muscarinic Antagonist Start: 10-07-2023 take 1 tablet by mouth twice daily trospium (SANCTURA) 20 mg tablet Indications: Overactive bladder Take 1 tablet by mouth two times a day. 60 tablet 5 10/07/2023 Active Completed/Discontinued Medications Medication Drug Class(es) Dates Sig (Normalized) Sig (Original) acetaminophen 325 mg oral capsule (20 sources) End: 12-22-2022 acetaminophen (TYLENOL) 325 mg cap Take by mouth as needed. 12/22/2022 Discontinued Comment on above: Take by mouth as nee ded. aspirin 81 mg chewable tablet (20 sources) Platelet Aggregation Inhibitor, Nonsteroidal Anti-inflammatory Drug Start: 06-06-2018 End: 12-22-2022 take 1 tablet by mouth once daily aspirin 81 mg chewable tablet Take 1 tablet by mouth once daily. 06/06/2018 12/22/2022 Discontinued take 1 tablet by mouth once jade y aspirin, enteric coated (ASPIRIN, ENTERIC COATED) 81 mg EC tablet Take 81 mg by mouth once daily. Active Comment on above: Take 1 tablet by bradley once daily. Take 81 mg by mouth once daily. onabotulinumtoxina 100 unt injection (18 sources) Acetylcholine Release Inhibitor Start: 12-01-2023 End: 12-01-2023 onabotulinum toxin type A 200 Units injection (BOTOX) Start: 12-01-2023 End: 12-01-2023 onabotulinum toxin type A 20 0 Units injection (BOTOX) Start: 11-01-2023 End: 12-01-2023 onabotulinum toxin type A 20 0 Units injection (BOTOX) Start: 10-20-2023 End: 11-19-2023 onabotulinum toxin type A 10 0 Units injection (BOTOX) cephalexin 500 mg oral capsule (7 sources) Cephalosporin Antibacterial Start: 11-22-2023 End: 11-29-2023 take 1 capsule by mouth three times daily cephALEXin (KEFLEX) 500 mg capsule Take 1 capsule by mouth three times a day for 7 days. 21 capsule 0 11/22/2023 11/29/2023 Start: 09-15-2023 End: 09-22-2023 take 1 capsule by mouth twice daily cephALEXin (KEFLEX) 500 mg capsule Indications: Urinary frequency Take 1 capsule by mouth two times a day for 7 days. 14 capsule 0 09/15/2023 09/22/2023 Active Start: 04-02-2022 End: 04-09-2022 take 1 capsule by mouth twice daily cephALEXin (KEFLEX) 500 mg capsule Take 1 capsule by mouth twice daily for 7 days. 14 capsule 0 04/02/2022 04/09/2022 Comment on above: Take 1 capsule by mo [facility] twice daily for 7 days. fluconazole 150 mg oral tablet (3 sources) Azole Antifungal Start: End: take 1 tablet by mouth once fluconazole (DIFLUCAN) 150 mg tablet Indications: Vaginal burning Take 1 tablet by mouth one time only for 1 dose. 1 tablet 0 09/09/2023 09/09/2023 Start: 11-26-2022 End: 12-10-2022 take 1 tablet by mouth once daily fluconazole (DIFLUCAN) 100 mg tablet Indications: Brad infection Take 1 tablet by mouth once daily for 14 days. 14 tablet 0 11/26/2022 12/10/2022 Active Comment on above: Take 1 tablet by [facility] once daily for 14 days. iv contrast (will be provided with radiology test) (6 sources) Start: 05-22-2022 End: 06-22-2022 iv contrast (will be provided with radiology test) CT Urogram WO/W Inject, intravenously, once for 1 dose.No IV access, insert saline lock prior to the beginning of sedation, infusion, injection of imaging exam. Discontinue saline lock post exam. If Pt. has a central line or IVAD, may access for administration according to line specific nursing protocol. Once exam is complete flush line and de-access according to line specific nursing protocol in the CT contrast administration guidelines link. 1 Each 0 05/22/2022 06/22/2022 Discontinued Start: 05-22-2022 iv contrast (w ill be provided with radiology test) CT Urogram WO/W Inject, intravenously, once for 1 dose.No IV access, insert saline lock prior to the beginning of sedation, infusion, injection of imaging exam. Discontinue saline lock post exam. If Pt. has a central line or IVAD, may access for administration according to line specific nursing protocol. Once exam is complete flush line and de-access according to line specific nursing protocol in the CT contrast administration guidelines link. 1 Each 0 05/22/2022 Active Comment on above: CT Urogram WO/W Inje ct, intravenously, once for 1 dose.No IV access, insert saline lock prior to the beginning of sedation, infusion, injection of imaging exam. Discontinue saline lock post exam. If Pt. has a central line or IVAD, may access for administration according to line specific nursing protocol. Once exam is complete flush line and de-access according to line specific nursing protocol in the CT contrast administration guidelines link. lactobacillus acidophilus 460 mg oral capsule (1 source) Start: 03-13-20 19 End: 12-17-19 21 take 1 capsule by mouth once daily Lactobacillus acidophilus (FLORAJEN) 460 mg (20 billion cell) cap Indications: Oral thrush Take 1 capsule by mouth once daily. 90 capsule 3 03/13/2019 12/16/2020 Discontinued lidocaine hydrochloride 0.02 mg/mg topical gel (3 sources) Antiarrhythmic, Amide Local Anesthetic Start: 12-01-19 End: 12-01-19 lidocaine urojet 2 % 6 mL topical gel (GLYDO) Start: 12-01-2023 End: 12-01-2023 lidocaine urojet 2 % 6 mL to pical gel (GLYDO) Start: 01-15-2023 End: 01-15-2023 lidocaine 10 mg/mL (1 %) 600 mg injection (XYLOCAINE) 24 hr mirabegron 50 mg extended release oral tablet (20 sources) beta3-Adrenergic Agonist Start: 10-22-2021 End: 04-17-2022 take 1 tablet by mouth once daily MYRBETRIQ 50 mg Tb24 Indications: Overactive bladder Take 1 tablet by mouth once daily. 30 tablet 11 11/26/2021 04/17/2022 Discontinued Comment on above: Take 50 mg by mouth once daily. Take 1 tablet by bradley th once daily. multivitamins(JADE Y MULTIVITAMIN TAB) (20 sources) Start: 01-18-2009 End: 12-22-2022 multivitamins(JET LY MULTIVITAMIN TAB) Take one(1) tablet daily. 0 01/18/2009 12/22/2022 Discontinued Start: 01-18-2009 multivitamins( DAILY MULTIVITAMIN TAB) Take one(1) tablet daily. 0 01/18/2009 Active Comment on above: Take one(1) tablet d rory. nitrofurantoin, macrocrystals 25 mg / nitrofurantoin, monohydrate 75 mg oral capsule (4 sources) Nitrofuran Antibacterial Start: 11-24-19 End: 11-29-19 take 1 capsule by mouth twice daily nitrofurantoin monohydrate and macrocrystal (MACROBID) 100 mg capsule Indications: Urinary frequency , Overactive bladder Take 1 capsule by mouth two times a day for 5 days. Start 2 days prior to botox. 10 capsule 0 11/24/2023 11/29/2023 Start: 10-20-2023 End: 10-25-2023 take 1 capsule by mouth twice daily nitrofurantoin monohydrate and macrocrystal (MACROBID) 100 mg capsule Indications: Urinary frequency , Overactive bladder Take 1 capsule by mouth two times a day for 5 days. Start 2 days prior to botox. 10 capsule 0 10/20/2023 10/25/2023 Active Start: 11-05-2021 End: 11-12-2021 take 1 capsule by mouth twice daily nitrofurantoin monohydrate and macrocrystal (MACROBID) 100 mg capsule Take 1 capsule by mouth twice daily for 7 days. 14 capsule 0 11/05/2021 11/12/2021 Active Comment on above: Take 1 capsule by [facility] twice daily for 7 days. nystatin [id number] unt/ml oral suspension (20 sources) Polyene Antifungal Start: 01-06-2022 End: 12-22-2022 take 5 mL by mouth four times daily, then take 1 mL by mouth four times daily nystatin (MYCOSTATIN) 100,000 unit/mL suspension Indications: Brad infection Take 5 mL by mouth four times daily. Swish and swallow (5 mL) 4 times per day. 600 mL 2 06/22/2022 12/22/2022 Discontinued Start: 11-03-2021 take 5 mL by mouth f our times daily, then take 1 mL by mouth four times daily nystatin (MYCOSTATIN) 100,000 unit/mL suspension Indications: Brad infection Take 5 mL by mouth four times daily. Swish and swallow (5 mL) 4 times per day. 600 mL 0 11/03/2021 Active Start: 06-25-2021 take 5 mL by mouth f our times daily, then take 1 mL by mouth four times daily nystatin (MYCOSTATIN) 100,000 unit/mL suspension Indications: Brad infection Take 5 mL by mouth four times daily. Swish and swallow (5 mL) 4 times per day. 600 mL 0 06/25/2021 Active Comment on above: Take 5 mL by mouth f our times daily. Swish and swallow (5 mL) 4 times per day. 24 hr oxybutynin chloride 10 mg extended release oral tablet (4 sources) Cholinergic Muscarinic Antagonist Start: 0 End: 2 take 1 tablet by mouth once daily oxybutynin ER (DITROPAN XL) 10 mg 24 hr tablet Indications: Overactive bladder Take 1 tablet by mouth once daily. 90 tablet 3 07/02/2020 08/12/2021 Discontinued (Course of therapy completed) Comment on above: Take 1 tablet by bradley th once daily. Problems Active Problems Problem Classification Problem Date Documented Da te Episodic/Chronic Abdominal pain (2 sources) Epigastric pain; Translations: [Epigastric pain] Episodic Chronic kidney disease (20 sources) Chronic kidney disease stage 3A ; Translations: [Stage 3a chronic kidney disease (HCC)] Onset: 3 01-12-2023 Chronic Chronic kidney disease (1 source) Chronic kidney disease; Translations: [Stage 3a chronic kidney disease (HCC)] Onset: 3 Chronic obstructive pulmonary disease and bronchiectasis (1 source) Bronchitis; Translations: [Bronchitis, not specified as acute or chronic] Episodic Diabetes mellitus without complication (3 sources) Increased glucose level; Translations: [Other abnormal glucose] Onset: 4 12-28-2023 Episodic Disorders of lipid metabolism (1 source) Hypertriglyceridemia; Translations: [Pure hyperglyceridemia] 02-02-2024 Chronic E Codes: Fall (1 source) Fall; Translations: [Unspecified fall, initial encounter] 03-01-2024 Episodic Esophageal disorders (20 sources) Esophageal dysmotility; Translations: [Dyskinesia of esophagus] Onset: 8 Resolved: 9 07-31-2020 Chronic Fever of unknown origin (1 source) Fever; Translations: [Fever, unspecified] Episodic Fluid and electrolyte disorders (20 sources) Hyponatremia; Translations: [Hypo-osmolality and hyponatremia] Onset: 9 Resolved: 9 07-17-2018 Episodic Genitourinary congenital anomalies (3 sources) Hydronephrosis; 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] Onset: 3 Chronic Genitourinary symptoms and ill-defined conditions (1 source) Urge incontinence of urine; Translations: [Urge incontinence] 01-15-2023 Chronic Immunity disorders (1 source) Antisynthetase syndrome; 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, 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 Immunizations and screening for infectious disease (4 sources) Vaccination needed; Translations: [Encounter for immunization] Episodic Menopausal disorders (20 sources) Postmenopausal bleeding; Translations: [Postmenopausal bleeding] Onset: 9 11-25-2018 Chronic Mycoses (6 sources) Candidiasis of the esophagus; Translations: [Candidal esophagitis] Episodic Nausea and vomiting (1 source) Nausea; Translations: [Nausea] Episodic Other aftercare (2 sources) Long-term current use of immunosuppressive drug; Translations: [Other senior living (current) drug therapy] Episodic Other bone disease and musculoskeletal deformities (1 source) Steroid-induced osteopenia; Translations: [Other specified disorders of bone density and structure, unspecified site] Episodic Other circulatory disease (1 source) Low blood pressure; Translations: [Hypotension, unspecified] 03-01-2024 Episodic Other diseases of bladder and urethra (13 sources) Overactive bladder; Translations: [Overactive bladder] Chronic Other diseases of kidney and ureters (2 sources) Acquired obstructive defect of renal pelvis; Translations: [Hydronephrosis with ureteropelvic junction obstruction] Episodic Other diseases of kidney and ureters (2 sources) Abnormal renal function; Translations: [Disorder of kidney and ureter, unspecified] 12-28-2023 Episodic Other diseases of kidney and ureters (1 source) Disorder of kidney and ureter, unspecified; Translations: [Function kidney decreased] Onset: Episodic Other female genital disorders (1 source) Burning sensation of vagina; Translations: [Unspecified condition associated with female genital organs and menstrual cycle] 09-09-2023 Episodic Other female genital disorders (1 source) Burning sensation of vulva; Translations: [Other specified conditions associated with female genital organs and menstrual cycle] 10-07-2023 Episodic Other gastrointestinal disorders (1 source) Chronic constipation; Translations: [Other constipation] Episodic Other hereditary and degenerative nervous system conditions (1 source) Essential tremor; Translations: [Essential tremor] Chronic Other hereditary and degenerative nervous system conditions (1 source) Tardive dyskinesia; Translations: [Drug induced subacute dyskinesia] 01-13-2024 Episodic Other lower respiratory disease (20 sources) Interstitial lung disease; Translations: [Interstitial pulmonary disease, unspecified] Onset: 0 03-26-2020 Chronic Other lower respiratory disease (20 sources) Nonspecific interstitial pneumonia; Translations: [Other specified interstitial pulmonary diseases] Onset: 3 Chronic Other lower respiratory disease (1 source) Other specified interstitial pulmonary diseases; Translations: [NSIP (nonspecific interstitial pneumonitis) ([facility])] Onset: 3 Chronic Other lower respiratory disease (1 source) Interstitial pulmonary disease, unspecified; Translations: [ILD (interstitial lung disease) ([facility])] Onset: 0 Chronic Other lower respiratory disease (1 source) Abnormal findings on diagnostic imaging of lung; Translations: [Other nonspecific abnormal finding of lung field] Episodic Other lower respiratory disease (2 sources) Cough; Translations: [Acute cough] Episodic Other lower respiratory disease (1 source) Cough; Translations: [Acute cough] 08-12-2022 Episodic Other lower respiratory disease (1 source) Rib pain; Translations: [Pleurodynia] 03-01-2024 Episodic Other nervous system disorders (1 source) Parkinsonism due to drug; Translations: [Other drug induced secondary parkinsonism] 01-13-2024 Chronic Other nervous system disorders (1 source) Other acute postprocedural pain; Translations: [Postoperative pain] Onset: 3 Episodic Other nervous system disorders (3 sources) Tremor; Translations: [Tremor, unspecified] 10-14-2023 Episodic Other nervous system disorders (1 source) Tremor, unspecified; Translations: [Tremor] Onset: 4 Episodic Other non-traumatic joint disorders (1 source) Acute ankle pain; Translations: [Pain in right ankle and joints of right foot] 06-26-2020 Episodic Other nutritional; endocrine; and metabolic disorders (20 sources) Obese class I; Translations: [Obesity, unspecified] Onset: 8 Resolved: 9 06-22-2023 Chronic Other nutritional; endocrine; and metabolic disorders (1 source) Obesity, unspecified; Translations: [Obesity, Class I, BMI 30-34.9] Onset: 4 Chronic Other upper respiratory infections (1 source) Chronic sinusitis; Translations: [Chronic sinusitis, unspecified] Chronic Other upper respiratory infections (1 source) Sore throat symptom; Translations: [Acute pharyngitis, unspecified] Episodic Prolapse of female genital organs (3 sources) Midline cystocele; Translations: [Cystocele, midline] Chronic Residual codes; unclassified (1 source) History of immunosuppressive therapy; Translations: [Personal history of immunosupression therapy] Episodic Residual codes; unclassified (1 source) Postoperative state; Translations: [Other specified postprocedural states] 02-25-2023 Episodic Residual codes; unclassified (1 source) Presence of neurostimulator; Translations: [Other postprocedural status] 09-02-2023 Episodic Screening and history of mental health and substance abuse codes (2 sources) Encounter for screening for depression; Translations: [Encounter for screening examination for other mental health and behavioral disorders] Onset: 4 Episodic Thyroid disorders (20 sources) Acquired hypothyroidism; Translations: [Hypothyroidism, unspecified] Onset: 0 03-26-2020 Chronic Urinary tract infections (2 sources) Chronic interstitial cystitis; Translations: [Interstitial cystitis (chronic) without hematuria] 01-11-2024 Chronic Urinary tract infections (3 sources) Acute cystitis; Translations: [Acute cystitis with hematuria] Episodic Past or Other Problems Problem Classification Problem Date Documented Date Episodic/Chronic Administrative/social admission (20 sources) Discharge status; Translations: [Encounter for administrative examinations, unspecified] Onset: 03-25-2020 03-26-2020 Episodic Allergic reactions (20 sources) Urticaria; Translations: [Urticaria, unspecified] Onset: 03-03-2012 Resolved: 10-01-2017 10-01-2017 Episodic Calculus of urinary tract (12 sources) Kidney stone; Translations: [Calculus of kidney] Onset: 08-11-2022 Episodic Cancer; other and unspecified primary (20 sources) Malignant thymoma; 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] Onset: 02-12-2020 Resolved: 06-22-2023 02-12-2020 Chronic Conditions associated with dizziness or vertigo (20 sources) Dizziness; Translations: [Dizziness and giddiness] Onset: 01-13-2019 01-13-2019 Episodic Diverticulosis and diverticulitis (20 sources) Diverticular disease; Translations: [Diverticulosis of intestine, part unspecified, without perforation or abscess without bleeding] Onset: 02-06-2010 Resolved: 07-08-2018 07-08-2018 Chronic Genitourinary symptoms and ill-defined conditions (20 sources) Urgent desire to urinate; Translations: [Urgency of urination] Onset: 09-14-2023 Episodic Malaise and fatigue (20 sources) Asthenia; Translations: [Weakness] Onset: 06-14-2018 Resolved: 06-19-2018 06-19-2018 Episodic Neoplasms of unspecified nature or uncertain behavior (20 sources) Neoplasm of thymus; Translations: [Neoplasm of unspecified behavior of other specified sites] Onset: 07-17-2018 Resolved: 07-17-2018 07-17-2018 Episodic Nutritional deficiencies (20 sources) Deficiency of macronutrients; Translations: [Unspecified severe protein-calorie malnutrition] Onset: 06-15-2018 Resolved: 06-22-2023 03-26-2020 Chronic Osteoarthritis (20 sources) Osteoarthrosis of the carpometacarpal joint of the thumb; Translations: [Unilateral primary osteoarthritis of first carpometacarpal joint, right hand] Onset: 08-05-2017 Resolved: 07-08-2018 07-08-2018 Chronic Other aftercare (20 sources) Long-term current use of systemic steroid; Translations: [FDC (current) use of systemic steroids] Onset: 10-30-2022 Episodic Other aftercare (20 sources) Taking high risk medication; 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] Onset: 10-30-2022 Episodic Other aftercare (1 source) Other senior living (current) drug therapy; Translations: [On Cellcept therapy] Onset: 05-08-2023 Episodic Other circulatory disease (20 sources) Orthostatic hypotension; Translations: [Orthostatic hypotension] Onset: 06-18-2018 07-08-2018 Episodic Other connective tissue disease (20 sources) Calcaneal spur; Translations: [Calcaneal spur, unspecified foot] Onset: 06-03-2010 Resolved: 10-01-2017 10-01-2017 Episodic Other endocrine disorders (20 sources) Syndrome of inappropriate vasopressin secretion; Translations: [Syndrome of inappropriate secretion of antidiuretic hormone] Onset: 07-08-2018 Resolved: 06-22-2023 07-08-2018 Chronic Other female genital disorders (20 sources) Dyspareunia; Translations: [Dyspareunia] Onset: 05-03-2006 Resolved: 02-06-2010 02-06-2010 Chronic Other female genital disorders (20 sources) Stenosis of cervix; Translations: [Stricture and stenosis of cervix uteri] Onset: 11-25-2018 11-25-2018 Episodic Other female genital disorders (20 sources) Polyp of corpus uteri; Translations: [Polyp of corpus uteri] Onset: 11-25-2018 11-25-2018 Episodic Other female genital disorders (20 sources) Polyp of corpus uteri; Translations: [Polyp of corpus uteri] Onset: 11-25-2018 11-25-2018 Episodic Other female genital disorders (1 source) Unspecified condition associated with female genital organs and menstrual cycle; Translations: [Vaginal burning] Onset: 09-09-2023 Episodic Other fractures (20 sources) Closed fracture of pelvis; Translations: [Unspecified fracture of sacrum, initial encounter for closed fracture] Onset: 05-31-2007 Resolved: 02-06-2010 02-06-2010 Episodic Other fractures (20 sources) Closed fracture thoracic vertebra; Translations: [Unspecified fracture of unspecified thoracic vertebra, initial encounter for closed fracture] Onset: 11-19-2008 Resolved: 02-06-2010 02-06-2010 Episodic Other injuries and conditions due to external causes (20 sources) Open wound; Translations: [Other injury of unspecified body region, initial encounter] Onset: 06-02-2012 Resolved: 10-01-2017 10-01-2017 Episodic Other lower respiratory disease (20 sources) Multiple nodules of lung; Translations: [Other nonspecific abnormal finding of lung field] Onset: 02-12-2020 02-12-2020 Episodic Other nervous system disorders (20 sources) Numbness of tongue; Translations: [Anesthesia of skin] Onset: 06-14-2018 07-08-2018 Episodic Other nervous system disorders (20 sources) Acute postoperative pain; Translations: [Other acute postprocedural pain] Onset: 03-25-2020 03-26-2020 Episodic Other nutritional; endocrine; and metabolic disorders (20 sources) Unintentional weight loss; Translations: [Abnormal weight loss] Onset: 02-12-2020 02-12-2020 Episodic Other screening for suspected conditions (not mental disorders or infectious disease) (20 sources) Patient encounter status; Translations: [Encounter for screening mammogram for malignant neoplasm of breast] Onset: 08-18-2023 Resolved: 02-06-2010 Episodic Results Test Name Value Interpretation Reference Range Facil ityaima LOTTon 03-01-2024 CNOV Office Visit (FAMPWS ) ASIA HAWLEY ([id number]) 1960 F Date Time Provider Department 03/01/24 8:40 AM JACQUELINE CARPENTER During your visit today, we recorded the following information about you: Pulse Respiration Blood pressure Weight 72/minute 16/minute 82/58 82.6 kg Jacqueline Carpenter APRN.CNP 03/01/2024 9:59 AM Signed This is a 63 year old female who presents today with: Patient presents with: Acute Visit: Fall and wants to discuss meds HISTORY OF PRESENT ILLNESS: Asia Hawley is a 63 year old female. Patient presents with: Acute Visit: Fall and wants to discuss meds Here in the office to discuss medications. Had a fall on Wednesday morning, just fell. No dizziness at that time. Bp low in office today. Taking Propranolol 20 mg BID for tremor. Episodes are random, usually will be standing when she gets dizzy. No chest pain, palitations, or edema. Hit right ribs on Wednesday, hit a rocking chair, no LOC. Following with Neurology for tremor Copied from Neurology note. Drug-induced parkinsonism (HCC) Exhibits bradykinesia, rigidity, and tremor, which may be indicative of drug-induced parkinsonism due to metoclopramide use. Differential diagnosis includes primary Parkinson's disease, but symptoms are symmetric, affecting both sides equally, which is more consistent with drug-induced etiology. - Discontinue metoclopramide to assess for improvement in parkinsonian symptoms. - Re-evaluate for residual parkinsonian features after a washout period to differentiate between drug-induced parkinsonism and primary Parkinson's disease. 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, 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 Unspecified hypothyroidism PAST SURGICAL HISTORY Procedure Laterality Date ARTHRP INTERPOS INTERCARPAL/METACARPAL JOINTS Right 10/13/2017 Right thumb CMC arthroplasty with LRTI CAUTERY CERVIX CRYOCAUTERY INITIAL/REPEAT 1999 CHOLECYSTECTOMY Cholecystectomy COLONOSCOPY FLX DX W/COLLJ SPEC WHEN PFRMD 04/10/2009 COLONOSCOPY FLX DX W/COLLJ SPEC WHEN PFRMD 09/05/2014 Repeat 2024 COLONOSCOPY FLX DX W/COLLJ SPEC WHEN PFRMD 12/22/2017 Colonoscopy COLPOSCOPY CERVIX UPPER/ADJACENT VAGINA Multiple starting 1995 Colposcopy KIDNEY STONE SURGERY HX 11/22/2023 blasted LAPAROSCOPY COLECTOMY PARTIAL W/ANASTOMOSIS 12/07/2009 diverticulitis LIG/TRNSXJ FLP TUBE ABDL/VAG APPR UNI/BI Tubal ligation LX PARTIAL COLECTOMY 12/23/2017 [facility] lap lysis of adhesions, left oopherectomy, right salpinoopherectomy, left salpingectomy, redo lap sigmoid colectomy w/ressection, lap mobilization of splenic flexure, lap appendectomy PAST SURGICAL HISTORY OF 10/2008 T9-L1 fusion, Dr. Lemon PAST SURGICAL HISTORY OF 10/24/2009 Removed T9-L1, 2 rods and 8 screws, Dr Lemon PAST SURGICAL HISTORY OF 11/2018 Hysteroscopy with DANJEROMY and Polypectomy with [employer] Truclear device PICC LINE INSERT/CONSULT 07/11/2018 THYMECTOMY PRTL/TOT TRANSCERVICAL APPR SPX 07/14/2018 WEDGE RESECT LUNG Right 03/25/2020 Right VATS wedge resection of upper, middle and lower lung for pulmonary infiltrates ALLERGIES Erythromycin, Hay Fever [Seasonal Allergies], and Zyrtec [Cetirizine Hcl] MEDICATIONS Current Outpatient Medications Medication Sig predniSONE (DELTASONE) 5 mg tablet take 1 tablet by mouth once daily. amitriptyline (ELAVIL) 50 mg tablet Take 1 tablet by mouth daily at bedtime. estradiol (ESTRACE) 0.01 % (0.1 mg/gram) vaginal cream Use 1 g vaginally two times a week. biotin 5 mg tab Take 5 mg by mouth once daily. propranolol (INDERAL) 20 mg tablet Take 1 tablet by mouth two times a day. trospium (SANCTURA) 20 mg tablet Take 1 tablet by mouth two times a day. (Patient not taking: Reported on 01/12/2024) metoclopramide HCl (REGLAN) 5 mg tablet Take 1 tablet by mouth three times a day. (Patient taking differently: Take 5 mg by mouth two times a day.) levothyroxine (SYNTHROID) 100 mcg tablet Take 1 tablet by mouth once daily. Take on empty stomach mycophenolate Mofetil (CELLCEPT) 500 mg tablet Take 2 in am and one in pm calcium carbonate 600 mg-cholecalciferol 400 units 600 mg-10 mcg (400 unit) tab Take 1 tablet by mouth two times a day. aspirin, enteric co (more content not included)... Normal [facility] [place] 02-02-2024 SAMIRN Telephone (FAMPWS) ASIA HAWLEY ([id number]) 1960 F Date Time Provider Department 02/02/24 JACQUELINE CARPENTER During your visit today, we recorded the following information about you: Jacqueline Carpenter APRN.SAMIR 02/02/2024 6:48 PM Signed Can you please call the patient and let her know that I reviewed her lab results. Kidney function has mildly decreased. I would recommend that she keep appointments with nephrology. Continue to watch salt and processed foods in the diet. Stay well-hydrated. If interested I do have a contact for a kidney dietitian. She can do virtual visits from home. Triglycerides were elevated, A1c has gone up to 5.9, this is considered prediabetes. I would like her to work on eating a low-carb diet. Increase lean protein, vegetables, and get some form of exercise. I would like her to get repeat fasting labs prior to next appointment in June. Thank you. Jacqueline Carpenter APRN.Mariam Salgado LPN 02/02/2024 6:50 PM Signed Patient notified of results, verbalizes understanding of instructions. Mariam Woods LPN Allergies As of Date: 02/02/2024 Noted Allergy Reaction ERYTHROMYCIN 09/14/2022 6 - Diarrhea HAY FEVER (SEASONAL ALLERGIES) 08/13/2009 ZYRTEC (CETIRIZINE HCL) 08/06/2014 9 - Itching Date Reviewed: 01/12/2024 Reviewed by: Ana Kyle MA - Fully Assessed Reason for Visit: Results [95] Cmt: Labs Primary Visit Diagnosis:Function kidney decreased [N28.9] Other Visit Diagnoses:Prediabetes [R73.03] High triglycerides [E78.1] Order(s):COMPREHENSIVE METABOLIC PANEL [SQCMP] Order #: [id number] FUTURE HEMOGLOBIN A1C [AVUBG0A] Order #: [id number] FUTURE LIPID PANEL BASIC [SQLIPB] Order #: [id number] FUTURE Prescriptions as of 02/02/2024 - predniSONE (DELTASONE) 5 mg tablet take 1 tablet by mouth once daily. - amitriptyline (ELAVIL) 50 mg tablet Take 1 tablet by mouth daily at bedtime. - estradiol (ESTRACE) 0.01 % (0.1 mg/gram) vaginal cream Use 1 g vaginally two times a week. - biotin 5 mg tab Take 5 mg by mouth once daily. - propranolol (INDERAL) 20 mg tablet Take 1 tablet by mouth two times a day. - trospium (SANCTURA) 20 mg tablet Take 1 tablet by mouth two times a day. - metoclopramide HCl (REGLAN) 5 mg tablet Take 1 tablet by mouth three times a day. - levothyroxine (SYNTHROID) 100 mcg tablet Take 1 tablet by mouth once daily. Take on empty stomach - mycophenolate Mofetil (CELLCEPT) 500 mg tablet Take 2 in am and one in pm - calcium carbonate 600 mg-cholecalciferol 400 units 600 mg-10 mcg (400 unit) tab Take 1 tablet by mouth two times a day. - aspirin, enteric coated (ASPIRIN, ENTERIC COATED) 81 mg EC tablet Take 81 mg by mouth once daily. - multivit-min/iron/foli c acid/K (MULTI-DAY PLUS MINERALS ORAL) Take 1 capsule by mouth once daily. - L.acidophilus-L.rhamno adiel (PROBIOTIC) 15 billion cell capsule Take 1 capsule by mouth once daily. Meds Comments as of 06/22/2023: OTC Prevagen. Problem List As Of Date 02/02/2024 Noted Resolved Acquired hypothyroidism [E03.9] Abnormal Papanicolaou Smear of Vagina and Vagin* 02/06/2010 Dyspareunia [GBT4254] 05/03/2006 02/06/2010 Fx Sacrum/Coccyx-Closed [S32.10XA, S32.2XXA] 05/31/2007 02/06/2010 Fx Dorsal Vertebra-Closed [S22.009A] 11/19/2008 02/06/2010 Diverticulosis [K57.90] 02/06/2010 07/08/2018 Calcaneal spur [M77.30] 06/03/2010 10/01/2017 Hives [L50.9] 10/01/2017 Chronic urticaria [L50.8] 03/03/2012 10/01/2017 Open wound(s) (multiple) of unspecified site(s)*06/02/2012 10/01/2017 Primary osteoarthritis of first carpometacarpal*201707/08/2018 Obesity, Class I, BMI 30-34.9 E66.9 [E66.9] 09/03/2017 07/08/2018 GERD (gastroesophageal reflux disease) [K21.9] 10/01/2017 07/08/2018 Hyponatremia [E87.1] 06/14/2018 Generalized weakness [R53.1] 06/14/2018 06/19/2018 Numbness of tongue [R20.0] 06/14/2018 Severe protein-calorie malnutrition (HCC) [E43] 06/15/2018 06/22/2023 Orthostatic hypotension [I95.1] 06/18/2018 Hypovolemia [E86.1] 07/08/2018 07/09/2018 SIADH (syndrome of inappropriate ADH production*07/08/2018 06/22/2023 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] 07/17/2018 07/17/2018 Post-menopausal bleeding [N95.0] 11/25/2018 Cervical stenosis (uterine cervix) [N88.2] 11/25/2018 Endometrial polyp [N84.0] 11/25/2018 Dizziness [R42] 01/13/2019 Weight loss, non-intentional [R63.4] 02/12/2020 Thymoma, 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 Normal [facility] Comprehensive metabolic 2000 panelon 01-31-2024 Albumin [Mass/Vol] 4.1 g/dL Normal 3.9-4.9 [facility] Comment on above: Order Comment: Speci men Type: BLOOD SPECIMENOrdering Facility: [facility] Address: [address] [place] [address] Performed By: #### 2 4323-8 ####[facility] LABCLIA [id number] [place] [address] [place] ALP [Catalytic activity/Vol] 100 U/L Normal 34-123 [facility] Comment on above: Order Comment: Speci men Type: BLOOD SPECIMENOrdering Facility: [facility] Address: [address] [place] [address] Performed By: #### 2 4323-8 ####[facility] LABCLIA [id number] [place] [address] [place] ALT [Catalytic activity/Vol] 17 U/L Normal 7-38 [facility] Comment on above: Order Comment: Speci men Type: BLOOD SPECIMENOrdering Facility: [facility] Address: [address] [place] [address] Performed By: #### 2 4323-8 ####[facility] LABCLIA [id number] [place] [address] [place] Anion gap [Moles/Vol] 10 mmol/L Normal 8-15 [facility] Comment on above: Order Comment: Speci men Type: BLOOD SPECIMENOrdering Facility: [facility] Address: [address] [place] [address] Performed By: #### 2 4323-8 ####[facility] LABCLIA [id number] [place] [address] [place] AST [Catalytic activity/Vol] 22 U/L Normal 13-35 [facility] Comment on above: Order Comment: Speci men Type: BLOOD SPECIMENOrdering Facility: [facility] Address: [address] [place] [address] Performed By: #### 2 4323-8 ####[facility] LABCLIA [id number] [place] [address] [place] Bilirubin [Mass/Vol] 0.3 mg/dL Normal 0.2-1.3 [facility] Comment on above: Order Comment: Speci men Type: BLOOD SPECIMENOrdering Facility: [facility] Address: [address] [place] [address] Performed By: #### 2 4323-8 ####[facility] LABCLIA [id number] [address] [address] [place] Calcium [Mass/Vol] 10.0 mg/dL Normal 8.5-10.2 [facility] Comment on above: Order Comment: Speci men Type: BLOOD SPECIMENOrdering Facility: [facility] Address: [address] [place] [address] Performed By: #### 2 4323-8 ####[facility] LABCLIA [id number] [place] [address] [place] Chloride [Moles/Vol] 106 mmol/L Normal 98-107 [facility] Comment on above: Order Comment: Speci men Type: BLOOD SPECIMENOrdering Facility: [facility] Address: [address] [place] [address] Performed By: #### 2 4323-8 ####[facility] LABCLIA [id number] [place] [address] [place] CO2 [Moles/Vol] 24 mmol/L Normal 22-30 [facility] Comment on above: Order Comment: Speci men Type: BLOOD SPECIMENOrdering Facility: [facility] Address: [address] [place] [address] Performed By: #### 2 4323-8 ####[facility] LABCLIA [id number] [place] [address] [place] Creatinine [Mass/Vol] 1.75 mg/dL High 0.58-0.96 [facility] Comment on above: Order Comment: Speci men Type: BLOOD SPECIMENOrdering Facility: [facility] Address: [address] [place] [address] Performed By: #### 2 4323-8 ####[facility] LABCLIA [id number] [place] [address] [place] Creatinine and Glomerular filtration rate.predicted panel (S/P/Bld) 32 mL/min/1.73m??? Low >=60 [facility] Comment on above: Order Comment: Melinda diamond Type: BLOOD SPECIMENOrdering Facility: [facility] Address: [address] [place] [address] Result Comment: Hyun mated Glomerular Filtration Rate (eGFR) is calculated using the 2020 CKD-EPI creatinine equation. This equation utilizes serum creatinine, sex, and age as parameters. The creatinine assay has traceable calibration to isotope dilution-mass spectrometry. Refer to KDIGO guidelines for clinical interpretation. In patients with unstable renal function, e.g. those with acute kidney injury, the eGFR may not accurately reflect actual GFR. Performed By: #### 2 4323-8 ####[facility] [id number] [place] [address] [place] Glucose [Mass/Vol] 97 mg/dL Normal 74-99 [facility] Comment on above: Order Comment: Melinda diamond Type: BLOOD SPECIMENOrdering Facility: [facility] Address: [address] [place] [address] Result Comment: The [place] Diabetes Association (ADA) provides guidance for cutoff values for fasting glucose and random glucose. The ADA defines fasting as no caloric intake for at least 8 hours. Fasting plasma glucose results between 100 to 125 [...] Standards of Medical Care in Diabetes 2016, [place] Diabetes Association. Diabetes Care. 2016.39(Suppl 1). Performed By: #### 2 4323-8 ####[facility] LABIA [id number] [place] [address] [place] Potassium [Moles/Vol] 4.2 mmol/L Normal 3.7-5.1 [facility] Comment on above: Order Comment: Speci men Type: BLOOD SPECIMENOrdering Facility: [facility] Address: [address] [place] [address] Performed By: #### 2 4323-8 ####[facility] LABCLIA [id number] [place] [address] [place] Protein [Mass/Vol] 7.4 g/dL Normal 6.3-8.0 [facility] Comment on above: Order Comment: Speci men Type: BLOOD SPECIMENOrdering Facility: [facility] Address: [address] [place] [address] Performed By: #### 2 4323-8 ####[facility] LABCLIA [id number] [place] [address] [place] Sodium [Moles/Vol] 140 mmol/L Normal 136-144 [facility] Comment on above: Order Comment: Speci men Type: BLOOD SPECIMENOrdering Facility: [facility] Address: [address] [place] [address] Performed By: #### 2 4323-8 ####[facility] LABCLIA [id number] [place] [address] [place] Urea nitrogen [Mass/Vol] 27 mg/dL High 7-21 [facility] Comment on above: Order Comment: Speci men Type: BLOOD SPECIMENOrdering Facility: [facility] Address: [address] [place] [address] Performed By: #### 2 4323-8 ####[facility] LABCLIA [id number] [place] [address] [place] HbA1c (Bld)on 01-31-2024 Average glucose Estimated from glycated hemoglobin (Bld) [Mass/Vol] 123 mg/dL Normal [facility] Comment on above: Order Comment: Speci men Type: BLOOD SPECIMENOrdering Facility: [facility] Address: [address] [place] [address] Result Comment: eAG: (Estimated average glucose) is a calculated value from HgbA1c and is branch sales and service representative of the average blood glucose level in the last 2-3 month period. Performed By: #### 5 5454-3 ####[facility] LABCLIA [id number] [address] [place] HbA1c (Bld) [Mass fraction] 5.9 % High 4.3-5.6 [facility] Comment on above: Order Comment: Melinda diamond Type: BLOOD SPECIMENOrdering Facility: [facility] Address: [address] [place] [address] Result Comment: [place] Diabetes Association guidelines indicate that patients with HgbA1c in the range 5.7-6.4% are at increased risk for development of diabetes, and intervention by lifestyle modification may be beneficial. HgbA1c greater or equal to 6.5% is considered diagnostic of diabetes. Performed By: #### 5 5454-3 ####[facility] LABCLIA [id number] [place] [address] [place] Lipid 1996 panelon 4 Cholesterol [Mass/Vol] 181 mg/dL Normal <200 [facility] Comment on above: Order Comment: Melinda diamond Type: BLOOD SPECIMENOrdering Facility: [facility] Address: [address] [place] [address] Result Comment: <200 mg/dL, Desirable 200-239 mg/dL, Borderline high >239 mg/dL, High Performed By: #### 2 4331-1 ####[facility] LABIA [id number] [address] STATES OF [facility] [id number] [place] [address] [place] Cholesterol in HDL [Mass/Vol] 49 mg/dL Normal >39 [facility] Comment on above: Order Comment: Melinda diamond Type: BLOOD SPECIMENOrdering Facility: [facility] Address: [address] [place] [address] Result Comment: 40-5 9 mg/dL, Acceptable >59 mg/dL, High: Negative risk factor for coronary heart disease <40 mg/dL, Low: Positive risk factor for coronary heart disease Performed By: #### 2 4331-1 ####[facility] LABCLIA [id number] [id number] [place] [address] [place] Cholesterol in LDL [Mass/Vol] 96 mg/dL Normal <100 [facility] Comment on above: Order Comment: Speci men Type: BLOOD SPECIMENOrdering Facility: [facility] Address: [address] [place] [address] Result Comment: <100 mg/dL, Optimal 100-129 mg/dL, Near optimal/above optimal 130-159 mg/dL, Borderline high 160-189 mg/dL, High >189 mg/dL, Very high Secondary prevention optimal LDL Cholesterol levels are recommended to be < 70 mg/dL Performed By: #### 2 4331-1 ####[facility] LABCLIA [id number] [id number] [place] [address] [place] Cholesterol in LDL/Cholesterol in HDL [Mass ratio] 1.96 {ratio} Normal <2.54 [facility] Comment on above: Order Comment: Speci men Type: BLOOD SPECIMENOrdering Facility: [facility] Address: [address] [place] [address] Result Comment: Rosalie darling: 1. National Cholesterol Education Program ATP III Guideline At-A-Glance Quick Desk Reference: National Heart, Lung, and Blood Ovid. National Institutes of Health. 2001: NIH Publication No. 01-3305. 2. An International Atherosclerosis Society position paper: global recommendations for the management of dyslipidemia: executive summary, Atherosclerosis. 2014: 232(2):410-413. Performed By: #### 2 4331-1 ####[facility] LABCLIA [id number] [address] [id number] [place] [address] [place] Cholesterol in VLDL [Mass/Vol] 36 mg/dL High <30 [facility] Comment on above: Order Comment: Speci men Type: BLOOD SPECIMENOrdering Facility: [facility] Address: [address] [place] [address] Performed By: #### 2 4331-1 ####[facility] LABCLIA [id number] [address] [id number] [place] [address] [place] Cholesterol non HDL [Mass/Vol] 132 mg/dL High <130 [facility] Comment on above: Order Comment: Speci men Type: BLOOD SPECIMENOrdering Facility: [facility] Address: [address] [place] [address] Result Comment: <130 mg/dL, Optimal 130-159 mg/dL, Near optimal/above optimal 160-189 mg/dL, Borderline high 190-219 mg/dL, High >219 mg/dL, Very high Secondary prevention optimal non HDL Cholesterol levels are recommended to be <100 mg/dL Performed By: #### 2 4331-1 ####[facility] LABCLIA [id number] [address] [id number] [place] [address] [place] Cholesterol.total/ Cholesterol in HDL [Mass ratio] 3.69 {ratio} Normal <5.10 [facility] Comment on above: Order Comment: Speci men Type: BLOOD SPECIMENOrdering Facility: [facility] Address: [address] [place] [address] Performed By: #### 2 4331-1 ####[facility] LABCLIA [id number] [address] [id number] [place] [address] [place] FASTING TIME 13 hrs Normal [facility] Comment on above: Order Comment: Speci men Type: BLOOD SPECIMENOrdering Facility: [facility] Address: [address] [place] [address] Performed By: #### 2 4331-1 ####[facility] LABCLIA [id number] [address] [id number] [place] [address] [place] Triglyceride [Mass/Vol] 181 mg/dL High <150 [facility] Comment on above: Order Comment: Speci men Type: BLOOD SPECIMENOrdering Facility: [facility] Address: [address] [place] [address] Result Comment: <150 mg/dL, Normal 150-199 mg/dL, Borderline high 200-499 mg/dL, High >499 mg/dL, Very high Performed By: #### 2 4331-1 ####[facility] LABCLIA [id number] [address] [id number] [address] [place] CNOVon 01-13-2024 CNOV Office Visit (NRMDN) ASIA HAWLEY ([id number]) 1960 F Date Time Provider Department 01/13/24 2:00 PM AVTAR ROBERTS NRMDN During your visit today, we recorded the following information about you: Pulse Blood pressure Weight Height 62/minute 101/66 87.6 kg 1.651 m Avtar Roberts MD 01/13/2024 2:50 PM Signed [facility] - NEW PATIENT EVALUATION Referring Provider: Jacqueline Carpenter [address] [facility] [address] Primary Care Provider: Priyanka Smith MD [address] [facility] [address] Dear Jacqueline Carpenter: Thank you for referring Ms. Hawley to our clinic today. As you know she is a 63 year old right-handed female who is seen in consultation for evaluation of tremor since 2021. She is seen with her . Subjective HISTORY OF PRESENT ILLNESS: Initial HPI Patient is a 63 year old female, right hand dominance, presenting with tremors and involuntary mouth and tongue movements. Approximately a year and a half ago, towards the end of 2021, she first noticed her hands shaking, both at rest and during activities such as holding a glass. The tremors were initially pointed out by others who observed her shaking and asked if she was okay. She reports that the tremors occur in both hands and can happen both at rest and during activities. She also experiences involuntary bqmw-tuk-esste movements of her mouth and tongue, which she believes began around the same time as the hand tremors. She does not think these movements are due to a nervous habit. She was recently prescribed propranolol by her family doctor, which has helped reduce the mouth movements but has not completely alleviated the hand tremors. She does not report any problems with walking or any family history of tremors. She is not aware of talking in her sleep or acting out her dreams at night, as she sleeps alone. Patient is currently taking amitriptyline, which was prescribed for bladder issues, and metoclopramide (Reglan), which was prescribed in 2019 for the sensation of food being stuck in her throat. She has also taken Phenergan in the past for nausea. She does not report any history of taking antipsychotics or having any major problems with depression. She has a history of thymus gland cancer. Movement Disorders Medications Schedule - as of the start of the visit: Medications AM PM Propranolol 20 mg 1 1 Other Movement Disorder Prior Therapies Propranolol Questionnaires In addition, the following areas that may be affected by abnormal involuntary movements were evaluated: Daily activities Difficulties with eatin (none) Difficulties in dressin (none) Difficulties with hygiene activities: 0 (none) Difficulties with handwritin (none) Difficulties with doing hobbies and other activities: 0 (none) Difficulties turning in bed: 0 (none) Difficulties getting out of bed, car or chair: 0 (none) Tremors/Gait/Balance Shaking or tremors: Yes (mild) Walking and balance problems: 0 (none) Number of falls in the Last Month: 0 Gait freezin (none) Autonomic/Pain Lightheadeness on standin (none) Urinary problems: Yes (mild) Constipation problems: 0 (none) Pain and other sensations: 0 (none) Speech/Swallowing Speech problems: 0 (none) Droolin (none) Chewing and swallowing problems: 0 (none) Sleep/Fatigue Sleep problems: Yes (severe) Daytime sleepiness: Yes (mild) Fatigue: Yes (mild) Mood/Behavior Depression: PHQ-9 Score: 3 usually representing no significant (0-4) depression. Anxiety: YOVANY-7 Total Score: 1 usually representing no significant (0-4) anxiety. Finally, the following table shows the patient's overall global physical and mental health using the PROMIS scale: PROMIS-10 Flowsheet Row Office Visit from 01/13/2024 in Neurology Office Visit from 05/20/2021 in Urology Global Physical Health T Score -- 50.8 Global Mental Health T Score 56 50.8 0-10 Standard Pain Scale -- 4 *PROMIS-10 scoring scale: mean = 50, over 50 is above average, under 50 is below average In addition, the following non-motor symptoms and palliative concerns were evaluated: Sleep/Fatigue: REM sleep behavior disorder: No Restless Legs Syndrome: Leg swelling: Impaired sense of smell: Cognition: Cognitive impairment: MoCA Cognitive assessment: Hallucinations and delusions: Apathy: Impulse control disorder: Palliative Concerns: Caregiver burden: Spiritual concerns: Advanced directives on file: Palliative services: Therapy and Exercise: Last PT Date: Last OT Date: Last ST Date: Exercises Regularly: ALLERGIES Allergen Reactions Erythromycin Diarrhea Hay Fever [Seasonal* Zyrtec [Cetirizine * Itching Current Outpatient Medications Medication Sig amitriptyline (ELAVIL) 10 mg tablet Take 1 tablet by mouth daily at bedti (more content not included)... Normal [facility] CNOVon 01-11-2024 CNOV Office Visit (GYURWP ) ASIA HAWLEY ([id number]) 1960 F Date Time Provider Department 01/11/24 11:00 AM WILEY BENITEZ GYJULIÁN During your visit today, we recorded the following information about you: Blood pressure Weight Height 118/80 87.1 kg 1.626 m Wiley Benitez MD 01/11/2024 2:58 PM Signed Female Pelvic Medicine AND Reconstructive Surgery Follow-Up Asia Hawley is a 63 year old female, who presents for a follow-up of urinary incontinence, urinary urgency. History since last visit: 200 units of Botox administered on 12/01/2023. (Which was an increase in dose for her) She reports she has not had any improvement in her symptoms, she still feels the urge to urinate at least every 20-30 minutes day and night Urinary Incontinence: yes, this is only on occasion Voiding Dysfunction: no Urinary Frequency: yes, every 20-30 minutes Urinary Urgency: yes, Prolapse Symptoms: no Defecatory Dysfunction: no Fecal Incontinence: no Abnormal Bleeding: no Pain: no Abnormal Vaginal Discharge: no [facility]ENT[facility] HISTORY: Last pap: Date:11/2023 (stenotic cervix) ; Last mammogram: Her last mammogram was 08/2023. She has no history of an abnormal mammogram LMP: Patient's last menstrual period was 01/07/2011.; Menopause post : Menstrual history: NA; Deliveries: n/a I have confirmed and edited as necessary, the PFSH obtained by others. Wiley Benitez MD Utilities Operator offered: Patient declines. OBJECTIVE: LMP 01/07/2011 General: Well appearing, alert, in no acute distress, well-hydrated, well nourished. Abdomen: Abdomen soft, non-tender Pelvic:deferred UA results: N/A Bladder scan: N/A Impression: Asia Hawley is a 63 year old female with . Plan: Suspected IC/BPS Pt is s/p mirabegron, oxybutynin, interstim, botox 100 units, now botox 200 units with no improvement in OAB symptoms (had some improvement w/ interstim but didn't last long) Voids q20 minutes, waking q1h at night; feels if she doesn't empty her bladder she is in severe discomfort Last cystoscopy revealed Bladder mucosa was erythematous with petechiae and glomerulations at the bladder base and trigone upon entry of the cystoscope. - concerning for IC Possible that she has been treated for OAB while she actually has picture more c/w IC Recommend IC pathway- recommend elavil 10mg and uptitrating to 50-75mg Also discussed other oral medications, PFPT, cystoscopy with fulguration v steroids, bladder installations as treatment options Recommend pyridium PRN for 2-3 days when in bladder flare Follow up 4 weeks to assess tolerance of elavil F/u 4weeks Wiley Benitez MD I spent a total of 30 minutes on the date of the service which included preparing to see the patient, [id number] patient care, completing clinical documentation, obtaining and/or reviewing separately obtained history, performing a medically appropriate examination, counseling and educating the patient/family/caregiv er, and ordering medications, tests, or procedures. Wiley Benitez MD 01/11/2024 12:20 PM Signed Take 10mg amitriptyline at bedtime for 1 week Then take 20-25mg amitriptyline at bedtime for 1-2 weeks Then take 50mg amitriptyline at bedtime for 2 weeks Then can increase one last time if needed to 75mg amitriptyline at bedtime Please follow up with virtual visit in 6 weeks to see how you're doing with this medication. When you have flares - take AZO (Pyridium) 2 tabs twice or three times daily as needed for 2-3 days Referring Provider: WILEY BENITEZ [[id number]] Allergies As of Date: 01/11/2024 Noted Allergy Reaction ERYTHROMYCIN 09/14/2022 6 - Diarrhea HAY FEVER (SEASONAL ALLERGIES) 08/13/2009 ZYRTEC (CETIRIZINE HCL) 08/06/2014 9 - Itching Date Reviewed: 01/11/2024 Reviewed by: Kiki Bob MA - Fully Assessed Reason for Visit: Follow Up [171] Primary Visit Diagnosis:Chronic interstitial cystitis [N30.10] Order(s):amitriptyline (ELAVIL) 10 mg tabletTake 1 tablet by mouth daily at bedtime. And as directedDisp: 60 tabletRfl: 2 Prescriptions as of 01/11/2024 - amitriptyline (ELAVIL) 10 mg tablet Take 1 tablet by mouth daily at bedtime. And as directed - estradiol (ESTRACE) 0.01 % (0.1 mg/gram) vaginal cream Use 1 g vaginally two times a week. - biotin 5 mg tab Take 5 mg by mouth once daily. - propranolol (INDERAL) 20 mg tablet Take 1 tablet by mouth two times a day. - trospium (SANCTURA) 20 mg tablet Take 1 tablet by mouth two times a day. - metoclopramide HCl (REGLAN) 5 mg tablet Take 1 tablet by mouth three times a day. - predniSONE (DELTASONE) 5 mg tablet Take 1 tablet by mouth once daily. - levothyroxine (SYNTHROID) 100 mcg tablet Take 1 tablet by mouth once daily. Take on empty stomach - mycophenolate Mofetil (CELLCEPT) 500 mg tablet Take 2 in am and one in pm - calcium carbonate 600 mg-cho (more content not included)... [facility]FAMPWS ) ASIA HAWLEY ([id number]) 1960 F Date Time Provider Department 12/28/23 7:20 AM [facility] During your visit today, we recorded the following information about you: Pulse Respiration Blood pressure Weight 70/minute 16/minute 110/70 86 kg Jacqueline Carpenter APRN.CNP 12/28/2023 7:55 AM Signed This is a 63 year old female who presents today with: Patient presents with: 6 Month Exam HISTORY OF PRESENT ILLNESS: Asia Hawley is a 63 year old female. Patient presents with: 6 Month Exam 6 month follow up Tremor: Taking propranolol 20 mg twice daily. Tremors have improved but still present, noticeable in hands. Has an up coming appointment with Neurology later this month. No new symptoms. Thyroid: Taking Synthroid 100 mcg daily. Denies difficulty swallowing, palpitations, or cold/heat intolerances. Hx of low sodium/potassium, monitored through routine labs. Elevated BUN and Creatinine on previous labs, continue monitoring. Glucose -elevated glucose in the past. He has been watching diet at home. Refers that she prepares most of her meals herself. Staying well-hydrated. Pulmonary - Follows with Dr. Temple. Hx of ILD/NSIP. On current regimen of Cellcept 500 mg bid, Reglan 5 mg and Prednisone 5 mg once daily. Does CT scan of lungs yearly for monitoring. CKD: Recent GFR 34. Watching diet for salt and trying to stay well-hydrated. Following with Nephrology, history of kidney stones. Pap: Follows with DENTAL MOLD MAKER, refers difficulty collecting pap recently. Mammogram: w/kobe, August 2023, normal Colonoscopy: 2018, due in 2027. 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/18, 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 No date: Unspecified hypothyroidism PAST SURGICAL HISTORY 10/13/2017: ARTHRP INTERPOS INTERCARPAL/METACARPAL JOINTS; Right Comment: Right thumb CMC arthroplasty with LRTI 1999: CAUTERY CERVIX CRYOCAUTERY INITIAL/REPEAT No date: CHOLECYSTECTOMY Comment: Cholecystectomy 04/10/2009: COLONOSCOPY FLX DX W/COLLJ SPEC WHEN PFRMD 09/05/2014: COLONOSCOPY FLX DX W/COLLJ SPEC WHEN PFRMD Comment: Repeat 202412/22/2017: COLONOSCOPY FLX DX W/COLLJ SPEC WHEN PFRMD Comment: Colonoscopy Multiple starting 1995: COLPOSCOPY CERVIX UPPER/ADJACENT VAGINA Comment: Colposcopy 11/22/2023: KIDNEY STONE SURGERY HX Comment: blasted 12/07/2009: LAPAROSCOPY COLECTOMY PARTIAL W/ANASTOMOSIS Comment: diverticulitis No date: LIG/TRNSXJ FLP TUBE ABDL/VAG APPR UNI/BI Comment: Tubal ligation 12/23/2017: LX PARTIAL COLECTOMY Comment: [facility] lap lysis of adhesions, left oopherectomy, right salpinoopherectomy, left salpingectomy, redo lap sigmoid colectomy w/ressection, lap mobilization of splenic flexure, lap appendectomy 10/2008: PAST SURGICAL HISTORY OF Comment: T9-L1 fusion, Dr. Lemon 10/24/2009: PAST SURGICAL HISTORY OF Comment: Removed T9-L1, 2 rods and 8 screws, Dr Lemon 11/2018: PAST SURGICAL HISTORY OF Comment: Hysteroscopy with DANDC and Polypectomy with [employer] Truclear device 07/11/2018: PICC LINE INSERT/CONSULT Comment: 07/14/2018: THYMECTOMY PRTL/TOT TRANSCERVICAL APPR SPX 03/25/2020: WEDGE RESECT LUNG; Right Comment: Right VATS wedge resection of upper, middle and lower lung for pulmonary infiltrates ALLERGIES Erythromycin, Hay Fever [Seasonal Allergies], and Zyrtec [Cetirizine Hcl] MEDICATIONS Current Outpatient Medications Medication Sig estradiol (ESTRACE) 0.01 % (0.1 mg/gram) vaginal cream Use 1 g vaginally two times a week. biotin 5 mg tab Take 5 mg by mouth once daily. propranolol (INDERAL) 20 mg tablet Take 1 tablet by mouth two times a day. trospium (SANCTURA) 20 mg tablet Take 1 tablet by mouth two times a day. (Patient not taking: Reported on 11/19/2023) metoclopramide HCl (REGLAN) 5 mg tablet Take 1 tablet by mouth three times a day. predniSONE (DELTASONE) 5 mg tablet Take 1 tablet by mouth once daily. levothyroxine (SYNTHROID) 100 mcg tablet Take 1 tablet by mouth once daily. Take on empty stomach mycophenolate Mofetil (CELLCEPT) 500 mg tablet Take 2 in am and one in pm calcium carbonate 600 mg-ch (more content not included)... Normal [facility] CNOVon 12-21-2023 CNOV Office Visit (UROLMD ) CHANDANASIA Javier ([id number]) 1960 F Date Time Provider Department 12/21/23 2:00 PM MATHEW YANG JR UROCHAPIN During your visit today, we recorded the following information about you: Weight Height 85.7 kg 1.626 m Mathew Yang Jr., MD 12/22/2023 10:17 AM Signed ESTABLISHED PATIENT OFFICE VISIT HPI Asia Huitron Chandan is a 63 year old female who presents refer for frequency/urgency. On no current meds. Has to void q 2 hours day and night. Ho colon resection. Has severe constipation. Has bm 1x/week. Seeing her general surgeon soon. Supposed to be taking fiber, however has not been. On probiotic however. Does not get uti's per patient. Drinks minimal caffeine. Has long ho microhematuria. No imaging ever done 05/23/19 - better with oxy 10 er. Has not really addressed constipation 05/21/20 - stable on oxy 10 er. Constipation better. Ua+ 05/20/20 - oxybutynin no longer helping. Stopped. Would like to try another medicine for now. Would consider PFT in the spring. 08/11/22 - now seeing dr. Mg for botox injection to be done soon. She noticed blood in the urine. Ct scan showed r upj obstruction and L lower pole 9mm renal calc. No fever. No uti. No flank pain. 11/03/22 - renal lasix scan discussed. No signs of obstruction. Kub did not show L lower pole 8mm calc. Options discussed including laser litho vs. Surveillance. 11/09/23 - doing ok since last seen. No stone episode. Kub shows 2 r renal calc. No pain. No fever. No uti. Opitons discussed. 12/21/23 - sp R ESWL. Stones gone. Doing well. Stone prevention discussed. No fever. No uti. LAB: Creatinine Date Value Ref Range Status 12/16/2023 1.66 (H) 0.58 - 0.96 mg/dL Final No results found for: PSA Glucose, Urine Date Value 05/22/2022 Negative 03/22/2020 Negative mg/dL Bilirubin, Urine (no units) Date Value 05/22/2022 Negative 03/22/2020 Negative Ketones, Urine (no units) Date Value 05/22/2022 Negative 03/22/2020 Negative Specific [place], Ur (no units) Date Value 05/22/2022 1.010 03/22/2020 1.021 Hemoglobin/Blood,Ur Date Value 05/22/2022 3+ 03/22/2020 2+ pH, Urine (no units) Date Value 05/22/2022 7.0 03/22/2020 6.0 Protein, Urine (no units) Date Value 05/22/2022 1+ 03/22/2020 2+ Urobilinogen, Urine (EU) Date Value 04/13/2011 normal Nitrites (no units) Date Value 05/22/2022 Negative 03/22/2020 Negative Leukocytes (no units) Date Value 04/13/2011 large WBC, Urine Date Value 05/22/2022 6-10 /HPF 03/22/2020 0-5 /HPF Color/Appearance (comment:) Date Value 04/13/2011 tea/cloudy MEDICATIONS: estradiol (ESTRACE) 0.01 % (0.1 mg/gram) vaginal cream Use 1 g vaginally two times a week. biotin 5 mg tab Take 5 mg by mouth once daily. propranolol (INDERAL) 20 mg tablet Take 1 tablet by mouth two times a day. metoclopramide HCl (REGLAN) 5 mg tablet Take 1 tablet by mouth three times a day. predniSONE (DELTASONE) 5 mg tablet Take 1 tablet by mouth once daily. levothyroxine (SYNTHROID) 100 mcg tablet Take 1 tablet by mouth once daily. Take on empty stomach mycophenolate Mofetil (CELLCEPT) 500 mg tablet Take 2 in am and one in pm calcium carbonate 600 mg-cholecalciferol 400 units 600 mg-10 mcg (400 unit) tab Take 1 tablet by mouth two times a day. aspirin, enteric coated (ASPIRIN, ENTERIC COATED) 81 mg EC tablet Take 81 mg by mouth once daily. multivit-min/iron/foli c acid/K (MULTI-DAY PLUS MINERALS ORAL) Take 1 capsule by mouth once daily. L.acidophilus-L.rhamno adiel (PROBIOTIC) 15 billion cell capsule Take 1 capsule by mouth once daily. trospium (SANCTURA) 20 mg tablet Take 1 tablet by mouth two times a day. (Patient not taking: Reported on 11/19/2023) REVIEW OF SYSTEMS Review of Systems Constitutional: Negative. Respiratory: Negative. Cardiovascular: Negative. Gastrointestinal: Negative. Genitourinary: Negative. Skin: Negative. Neurological: Negative. Psychiatric/Behavioral : Negative. HISTORIES PAST MEDICAL HISTORY No date: Abnormal ANCA test Comment: positive P-ANCA with MPO, no clinical vasculitis No date: Abnormal Papanicolaou smear of vagina and vaginal HPV 12/07/2009: Diverticulitis of sigmoid colon Comment: ACUTE 07/31/2020: Esophageal dysmotility Comment: Manometry 06/21/2020. 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 Normal [facility] metabolic 2000 panelon 12-16-2023 Anion gap [Moles/Vol] 10 mmol/L Normal 8-15 [facility] Comment on above: Order Comment: Speci men Type: BLOOD SPECIMENOrdering Facility: [facility] Address: [address] [place] [address] Performed By: #### 2 4321-2, 3016-3, 70196-9 ####[facility] LABCLIA [id number] [place] [address] [place] Calcium [Mass/Vol] 10.2 mg/dL Normal 8.5-10.2 [facility] Comment on above: Order Comment: Speci men Type: BLOOD SPECIMENOrdering Facility: [facility] Address: [address] [place] [address] Performed By: #### 2 4321-2, 3016-3, 23941-0 ####[facility] LABCLIA [id number] [place] [address] [place] Chloride [Moles/Vol] 103 mmol/L Normal 98-107 [facility] Comment on above: Order Comment: Speci men Type: BLOOD SPECIMENOrdering Facility: [facility] Address: [address] [place] [address] Performed By: #### 2 4321-2, 3016-3, 67712-4 ####[facility] LABCLIA [id number] [place] [address] [place] CO2 [Moles/Vol] 24 mmol/L Normal 22-30 [facility] Comment on above: Order Comment: Speci men Type: BLOOD SPECIMENOrdering Facility: [facility] Address: [address] [place] [address] Performed By: #### 2 4321-2, 3016-3, 91177-3 ####[facility] LABCLIA [id number] [facility] [place] [id number] [place] Creatinine [Mass/Vol] 1.66 mg/dL High 0.58-0.96 [facility] Comment on above: Order Comment: Melinda diamond Type: BLOOD SPECIMENOrdering Facility: [facility] Address: [address] [place] [address] Performed By: #### 2 4321-2, 3016-3, 31685-8 ####[facility] LABCLIA [id number] [place] [address] [place] Creatinine and Glomerular filtration rate.predicted panel (S/P/Bld) 34 mL/min/1.73m??? Low >=60 [facility] Comment on above: Order Comment: Melinda diamond Type: BLOOD SPECIMENOrdering Facility: [facility] Address: [address] [place] [address] Result Comment: Hyun mated Glomerular Filtration Rate (eGFR) is calculated using the 2020 CKD-EPI creatinine equation. This equation utilizes serum creatinine, sex, and age as parameters. The creatinine assay has traceable calibration to isotope dilution-mass spectrometry. Refer to KDIGO guidelines for clinical interpretation. In patients with unstable renal function, e.g. those with acute kidney injury, the eGFR may not accurately reflect actual GFR. Performed By: #### 2 4321-2, 6-3, 73294-3 ####[facility] LABCLIA [id number] [place] [address] [place] Glucose [Mass/Vol] 113 mg/dL High 74-99 [facility] Comment on above: Order Comment: Melinda diamond Type: BLOOD SPECIMENOrdering Facility: [facility] Address: [address] [place] [address] Result Comment: The [place] Diabetes Association (ADA) provides guidance for cutoff values for fasting glucose and random glucose. The ADA defines fasting as no caloric intake for at least 8 hours. Fasting plasma glucose results between 100 to 125 [...] Standards of Medical Care in Diabetes 2016, [place] [employer]. Diabetes Care. 2016.39(Suppl 1). Performed By: #### 2 4321-2, 6-3, 48824-8 ####[facility] LABCLIA [id number] [address] [address] [place] Potassium [Moles/Vol] 4.6 mmol/L Normal 3.7-5.1 [facility] Comment on above: Order Comment: Speci men Type: BLOOD SPECIMENOrdering Facility: [facility] Address: [address] [place] [address] Performed By: #### 2 4321-2, 3015-3, 50387-6 ####[facility] LABCLIA [id number] [address] [address] [place] Sodium [Moles/Vol] 137 mmol/L Normal 136-144 [facility] Comment on above: Order Comment: Speci men Type: BLOOD SPECIMENOrdering Facility: [facility] Address: [address] [place] [address] Performed By: #### 2 1-2, 3, 96344-2 ####[facility] LABCLIA [id number] [address] [address] [place] Urea nitrogen [Mass/Vol] 27 mg/dL High 7-21 [facility] Comment on above: Order Comment: Speci men Type: BLOOD SPECIMENOrdering Facility: [facility] Address: [address] [place] [address] Performed By: #### 2 4321-2, 3015-3, 03505-2 ####[facility] LABCLIA [id number] [address] [address] [place] CBC panel Auto (Bld)on 12-15 Erythrocyte distribution width (RBC) [Ratio] 15.4 % High 11.5-15.0 [facility] Comment on above: Order Comment: Speci men Type: BLOOD SPECIMENOrdering Facility: [facility] Address: [address] [place] [address] Performed By: #### 5 8410-2 ####[facility] LABIA [id number] [place] [address] [place] Hematocrit (Bld) [Volume fraction] 39.1 % Normal 36.0-46.0 [facility] Comment on above: Order Comment: Speci men Type: BLOOD SPECIMENOrdering Facility: [facility] Address: [address] [place] [address] Performed By: #### 5 8410-2 ####[facility] LABIA [id number] [place] [address] [place] Hemoglobin (Bld) [Mass/Vol] 11.8 g/dL Normal 11.5-15.5 [facility] Comment on above: Order Comment: Speci men Type: BLOOD SPECIMENOrdering Facility: [facility] Address: [address] [place] [address] Performed By: #### 5 8410-2 ####[facility] LABIA [id number] [place] [address] [place] MCH (RBC) [Entitic mass] 26.4 pg Normal 26.0-34.0 [facility] Comment on above: Order Comment: Speci men Type: BLOOD SPECIMENOrdering Facility: [facility] Address: [address] [place] [address] Performed By: #### 5 8410-2 ####[facility] LABIA [id number] [place] [address] [place] MCHC (RBC) [Mass/Vol] 30.2 g/dL Low 30.5-36.0 [facility] Comment on above: Order Comment: Speci men Type: BLOOD SPECIMENOrdering Facility: [facility] Address: [address] [place] [address] Performed By: #### 5 8410-2 ####[facility] LABIA [id number] [place] [address] [place] MCV (RBC) [Entitic vol] 87.5 fL Normal 80.0-100.0 [facility] Comment on above: Order Comment: Speci men Type: BLOOD SPECIMENOrdering Facility: [facility] Address: [address] [place] [address] Performed By: #### 5 8410-2 ####[facility] LABIA [id number] [place] [address] [place] Nucleated RBC (Bld) [#/Vol] 10*3/uL Normal <0.01 [facility] Comment on above: Order Comment: Speci men Type: BLOOD SPECIMENOrdering Facility: [facility] Address: [address] [place] [address] Performed By: #### 5 8410-2 ####[facility] LABIA [id number] [place] [address] [place] Platelet mean volume (Bld) [Entitic vol] 10.9 fL Normal 9.0-12.7 [facility] Comment on above: Order Comment: Speci men Type: BLOOD SPECIMENOrdering Facility: [facility] Address: [address] [place] [address] Performed By: #### 5 8410-2 ####[facility] LABIA [id number] [place] [address] [place] Platelets (Bld) [#/Vol] 398 10*3/uL Normal 150-400 [facility] Comment on above: Order Comment: Speci men Type: BLOOD SPECIMENOrdering Facility: [facility] Address: [address] [place] [address] Performed By: #### 5 8410-2 ####[facility] LABIA [id number] [place] [address] [place] RBC (Bld) [#/Vol] 4.47 10*6/uL Normal 3.90-5.20 [facility] Comment on above: Order Comment: Speci men Type: BLOOD SPECIMENOrdering Facility: [facility] Address: [address] [place] [address] Performed By: #### 5 8410-2 ####[facility] LABCLIA [id number] [place] [address] [place] WBC (Bld) [#/Vol] 11.52 10*3/uL High 3.70-11.00 [facility] Comment on above: Order Comment: Speci men Type: BLOOD SPECIMENOrdering Facility: [facility] Address: [address] [place] [address] Performed By: #### 5 8410-2 ####[facility] LABCLIA [id number] [place] [address] [place] Hepatic function 2000 panelo n 12-16-2023 Albumin [Mass/Vol] 4.0 g/dL Normal 3.9-4.9 [facility] Comment on above: Order Comment: Speci men Type: BLOOD SPECIMENOrdering Facility: [facility] Address: [address] [place] [address] Performed By: #### 2 4321-2, 3016-3, 78537-6 ####[facility] LABCLIA [id number] [place] [address] [place] ALP [Catalytic activity/Vol] 90 U/L Normal 34-123 [facility] Comment on above: Order Comment: Speci men Type: BLOOD SPECIMENOrdering Facility: [facility] Address: [address] [place] [address] Performed By: #### 2 4321-2, 3016-3, 56826-8 ####[facility] LABCLIA [id number] [place] [address] [place] ALT [Catalytic activity/Vol] 18 U/L Normal 7-38 [facility] Comment on above: Order Comment: Speci men Type: BLOOD SPECIMENOrdering Facility: [facility] Address: [address] [place] [address] Performed By: #### 2 4321-2, 3015-3, 74998-3 ####[facility] LABCLIA [id number] [place] [address] [place] AST [Catalytic activity/Vol] 26 U/L Normal 13-35 [facility] Comment on above: Order Comment: Speci men Type: BLOOD SPECIMENOrdering Facility: [facility] Address: [address] [place] [address] Performed By: #### 2 4321-2, 3015-3, 80735-4 ####[facility] LABCLIA [id number] [place] [address] [place] Bilirubin [Mass/Vol] 0.4 mg/dL Normal 0.2-1.3 [facility] Comment on above: Order Comment: Speci men Type: BLOOD SPECIMENOrdering Facility: [facility] Address: [address] [place] [address] Performed By: #### 2 4321-2, 3015-3, 63695-4 ####[facility] LABCLIA [id number] [place] [address] [place] Bilirubin.conjugat ed [Mass/Vol] mg/dL Normal <0.2 [facility] Comment on above: Order Comment: Speci men Type: BLOOD SPECIMENOrdering Facility: [facility] Address: [address] [place] [address] Performed By: #### 2 4321-2, 3015-3, 64007-3 ####[facility] LABCLIA [id number] [place] [id number] [place] Protein [Mass/Vol] 7.1 g/dL Normal 6.3-8.0 [facility] Comment on above: Order Comment: Speci men Type: BLOOD SPECIMENOrdering Facility: [facility] Address: [address] [place] [address] Performed By: #### 2 4321-2, 3016-3, 88388-1 ####[facility] LABIA [id number] [place] [id number] [place] TSH SerPl-aCncon 12-16-2023 TSH Qn 1.490 m[IU]/L Normal 0.270-4.200 [facility] Comment on above: Order Comment: Speci men Type: BLOOD SPECIMENOrdering Facility: [facility] Address: [address] [place] [address] Performed By: #### 2 4321-2, 3016-3, 34284-1 ####[facility] LABIA [id number] [address] [facility] CNOVon 12-01-2023 CNOV Office Visit (GYNURM ) ASIA HAWLEY ([id number]) 1960 F Date Time Provider Department 12/01/23 1:30 PM WILEY BENITEZ During your visit today, we recorded the following information about you: Blood pressure 100/67 Wiley Benitez MD 12/01/2023 3:25 PM Signed Asia Hawley presents today for a intradetrusor Botox injections. Indication: Urinary urgency, Urge incontinence. UNIVERSAL PROTOCOL / SAFETY CHECKLIST Procedure to be Performed: cystoscopy with botox 200 units Sign In: A Moment of CARE was completed. Personnel directly involved with the procedure wore the appropriate PPE (Personal Protective Equipment). Patient/Surrogate Stated/Verified: PATIENT VERIFIED(optional for EMERGENT procedures): Patient name, Date of , Relevant allergies, and The intended procedure Time Out Communication: Intended patient and procedure match the source documents. Consent documented and matches the intended procedure. Sign Out: SIGN OUT (optional for EMERGENT procedures): No specimen collected. All instruments, equipment, possible retained foreign bodies accounted for. PROCEDURE: Indication: Urinary Urgency/Urinary Frequency/Urinary urge incontinence/ Neurogenic bladder/Interstitial Cystitis. The patient understands the RBA of intradetrusor Botox injection, including but not limited to UTI, hematuria, urinary retention (dose dependent), treatment failure and transient weakness (rare). Brief description of procedure: After obtaining written informed consent, a time out was performed. The patient was placed in dorsal lithotomy position, then prepped and draped in the usual sterile fashion. 2% urethral lidocaine jelly was introduced into the urethra and allowed to take analgesic effect. Anesthesia: Intraurethral Lidocaine jelly 6 mL. Video-assisted cystourethroscopy was performed using a 19 Nepalese 30 degree cystoscope with saline infusion. The cystoscope was advanced into the bladder. Next, the bladder was evaluated. Bilateral ureteral orifices were identified in normal orthotopic position. The bladder mucosa was evaluated in its entirety. There no bladder masses, stones, lesions or foreign bodies. Bladder mucosa was erythematous with petechiae and glomerulations at the bladder base and trigone upon entry of the cystoscope. Next 200 units of Botox were reconstituted in 20 mL of preservative-free injectable saline and injected in 2-3 mL aliquots into the detrusor in a grid-like pattern. In all 8 injections were given. Finally, the cystoscope was removed from the bladder and the urethra evaluated again. The patient tolerated the procedure well and was given an immediate dose of periprocedural antibiotics. There were no complications. Findings: as above Complications: none Procedure Summary: Patient tolerated procedure well. Medications: Prophylactic antibiotics Plan: Follow up in 1 month with me. Continue with interstim - dual therapy botox and interstim. If still continues to have bladder urgency/pressure consider IC therapy given cystoscopy findings and she has not been treated for IC/BPS ever. Also plan to repeat cystoscopy in 6 months. If bladder mucosa not improved consider bladder biopsy in the OR. MD Joseph Grissom Amy P 12/01/2023 3:05 PM Signed Instruction sheet given and reviewed: Yes Patient verbalizes understanding: Yes Post- procedure Vital Signs: B/P: 152/92 P: R:18 Pain Ratin on a scale of 0 to 10. Specimens: not indicated. Nurse: Lacy Sinclair 12/01/2023 2:56 PM Signed CYSTOSCOPY HOMEGOING INSTRUCTIONS You have undergone a cystoscopy procedure where a telescope was inserted into your bladder through your urethra. What to expect: You may have a burning sensation during urination and/or blood-tinged urine. These symptoms will normally subside within 24 hours and with increased fluid intake. When to call the physician?s office: If you have a fever of 100.4 degrees Fahrenheit or higher If you are unable to urinate If your urine becomes bloody and does not clear with increased fluid intake. If after 24 hours, you have signs of a urinary tract infection. UROGYNECOLOGY PHYSICIAN CONTACT INFORMATION During business hours, these numbers connect to your doctor?s office. During the evening and weekends, these numbers will connect you to the answering service to speak with the doctor ironing worker. Dr. Cueto Dr. Benitez Dr. Constantino Dr. Cerda Dr. Brumfield Dr. Mcqueen Dr. Foy Dr. Mg Teri Washington, PARTY BUS DRIVER Tariq Brooks, PARTY BUS DRIVER German Rivera, PARTY BUS DRIVER Radha Roberts, PARTY BUS DRIVER Lala Romero, PARTY BUS DRIVER Lucina Estrada, PARTY BUS DRIVER Please DO NOT use MyChart for procedure concerns. Referring Provider: WILEY BENITEZ [[id number] (more content not included)... Normal [facility] UA DIP, URINE (POC)on 2023 BILIRUBIN UA (POCT) Negative Negative [facility] CLARITY [facility] (POCT) [facility] COLOR [facility] ([facility]CT) Yellow [facility] GLUCOSE UA (POCT) 100 mg/dL Abnormal Negative [facility] Hemoglobin Ql (U) Large Abnormal Negative [facility] Interpretation and review of laboratory results Abnormal [facility] KETONE UA (POCT) Negative Negative mg/dL [facility] LEUKOCYTES UA (POCT) Small Abnormal Negative [facility] NITRITE UA (POCT) Negative Negative [facility] PH UA (POCT) 6.0 4.5 - 8.0 [facility] Protein Ql (U) 100 mg/dL Abnormal Negative [facility] SPECIFIC GRAVITY UA (POCT) 1.020 1.005 - 1.030 [facility] UROBILINOGEN UA (POCT) 0.2 Normal E.U./dL [facility] Location:[facility], [address] [place], [place], [id number] [place] [address] POINT OF CARE [facility] CNOVon 11-29-2023 CNOV Office Visit (OBGYWM ) CHANDANVICA Javier ([id number]) 1960 F Date Time Provider Department 11/29/23 8:15 AM MURIEL LOPEZ OBGYWM During your visit today, we recorded the following information about you: Blood pressure Weight Height 114/76 86.2 kg 1.626 m Muriel Lopez APRN.CNM 11/29/2023 8:44 AM Signed Asia is a 63 year old who presents for an annual gynecologic exam without complaints. 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, 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 Unspecified hypothyroidism PAST SURGICAL HISTORY Procedure Laterality Date ARTHRP INTERPOS INTERCARPAL/METACARPAL JOINTS Right 10/13/2017 Right thumb CMC arthroplasty with LRTI CAUTERY CERVIX CRYOCAUTERY INITIAL/REPEAT 1999 CHOLECYSTECTOMY Cholecystectomy COLONOSCOPY FLX DX W/COLLJ SPEC WHEN PFRMD 04/10/2009 COLONOSCOPY FLX DX W/COLLJ SPEC WHEN PFRMD 09/05/2014 Repeat 2024 COLONOSCOPY FLX DX W/COLLJ SPEC WHEN PFRMD 12/22/2017 Colonoscopy COLPOSCOPY CERVIX UPPER/ADJACENT VAGINA Multiple starting 1995 Colposcopy LAPAROSCOPY COLECTOMY PARTIAL W/ANASTOMOSIS 12/07/2009 diverticulitis LIG/TRNSXJ FLP TUBE ABDL/VAG APPR UNI/BI Tubal ligation LX PARTIAL COLECTOMY 12/23/2017 [facility] lap lysis of adhesions, left oopherectomy, right salpinoopherectomy, left salpingectomy, redo lap sigmoid colectomy w/ressection, lap mobilization of splenic flexure, lap appendectomy PAST SURGICAL HISTORY OF 10/2008 T9-L1 fusion, Dr. Lemon PAST SURGICAL HISTORY OF 10/24/2009 Removed T9-L1, 2 rods and 8 screws, Dr Lemon PAST SURGICAL HISTORY OF 11/2018 Hysteroscopy with DANDC and Polypectomy with [employer]s and Nephew Truclear device PICC LINE INSERT/CONSULT 07/11/2018 THYMECTOMY PRTL/TOT TRANSCERVICAL APPR SPX 07/14/2018 WEDGE RESECT LUNG Right 03/25/2020 Right VATS wedge resection of upper, middle and lower lung for pulmonary infiltrates FAMILY HISTORY Problem Relation Age of Onset Hypertension Mother Thyroid Mother Heart Father Hypertension Father COPD Father Smoker. Heart Maternal Grandmother Stroke Maternal Grandmother Cancer Maternal Grandmother COLON Cancer Paternal Grandmother STOMACH Anesthesia Problems No Family History SOCIAL HISTORY Social History Tobacco Use Smoking status: Never Passive exposure: Never Smokeless tobacco: Never Tobacco comments: No one in household smokes. Smoker in childhood home. Vaping Use Vaping Use: Never used Substance Use Topics Alcohol use: Yes Comment: Rarely Drug use: No REVIEW OF SYSTEMS Abdomen: No abdominal pain, nausea, vomiting, diarrhea, or constipation. No bloating, early satiety, indigestion, or increased flatulence. Bladder: No dysuria, gross hematuria, POSITIVE for overactive bladder/frequency/urge ncy and incontinence. 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 GENERAL: pleasant, female in no apparent distress HEENT: Normocephalic and atraumatic NECK: Supple DERMATOLOGY: Normal and without lesions BREAST: soft, non-tender, symmetric, no dominant mass, normal nipple-areolar complex, no lymphadenopathy, and no nipple discharge CHEST: Normal inspiratory effort ABDOMEN: soft, non-tender, and no masses PELVIC: external genitalia normal, no vulvar lesions, no cervical lesions, atrophic changes , stenotic os - (more content not included)... Normal [facility] XR ABDOMEN 1V SUPINEon 11-28 XR ABDOMEN 1V SUPINE * * *Final Report* * * DATE OF EXAM: Nov 29 2023 8:08AM [id number] - XR ABDOMEN 1V SUPINE / PROCEDURE REASON: Kidney stone * * * * Physician Interpretation * * * * EXAMINATION: XR ABDOMEN 1V SUPINE PATIENT/TECHNOLOGIST PROVIDED HISTORY: Kidney stones follow up. CLINICAL INFORMATION: 63 years old Female with Kidney stone. Review of electronic medical record states: Status post RIGHT extracorporeal shock wave lithotripsy 11/22/2023. COMPARISON: KUB 12/02/2023, 11/04/2023, 08/11/2022 CT urogram 06/09/2022 TECHNIQUE: Single supine view. 2 image(s) RESULT: Previously seen RIGHT renal calculi are no longer visualized status post lithotripsy. Note that the renal shadows are partially obscured due to overlying gas and stool. Calcifications in the pelvis likely representing phleboliths are unchanged dating back to 08/11/2022. No dilated bowel. Bowel anastomotic sutures in the pelvis. Stimulator device overlying the LEFT iliac bone with presacral lead. IMPRESSION: Previously seen RIGHT renal calculi are no longer visualized status post lithotripsy. Note that the renal shadows are partially obscured due to overlying gas and stool. Oim Consultant: PSCB Transcribe Date/Time: Dec 03 2023 8:17A Dictated by : RUPESH CAMPBELL DO This examination was interpreted and the report reviewed and electronically signed by: RUPESH CAMPBELL DO on Dec 03 2023 8:31AM EST [id number] Normal [facility] ANES POSTPROC EVALon 024 ANES POSTPROC EVAL HNO ID: [id number] Author: JAYRO DAVILA MD Service: Anesthesiology Author Type: Physician Type: Anesthesia Postprocedure Evaluation Filed: 11/22/2023 10:06 Note Text: POST ANESTHESIA EVALUATION NOTE : 1960 Procedure Summary Date: 11/22/23 Room / Location: ME OR [address] [place] [address] OR Anesthesia Start: 801 Anesthesia Stop: Procedure: EXTRACORPOREAL SHOCKWAVE LITHOTRIPSY UNILATERAL (Right: Renal) Diagnosis: Renal calculus, right (Renal calculus, right [N20.0]) Surgeons: Mathew Yang Jr., MD Responsible Provider: Jayro Davila MD Anesthesia Type: general ASA Status: 3 Anesthesia Type: No value filed. Last Vitals Vitals Value Taken Time BP 112/68 11/22/2330 Temp 36.2 ?C (97.2 ?F) 11/22/23927 HR SpO2 64 11/22/23929 Resp 16 11/22/23929 SpO2 97 % 11/22/23929 Post Anesthesia Patient Status Anticipated Disposition: phase 2 then home. Neurological Status: aware and responsive. Pulmonary Status: breathing comfortably on room air Airway Control: returned to baseline unsupported. Cardiovascular Status: stable. Pain Management: clinically adequate Postoperative Hydration: acceptable. Intraoperative Events: no significant anesthesia events Post Operative Nausea/Vomiting Status: no significant post operative nausea or vomiting Recommendation: further care per PACU/ICU/floor team. Anesthesia Observations No Documentation SIGNATURE: Jayro Davila MD PATIENT NAME: Asia Hawley DATE: November 22, 2023 TIME: 10:05 AM CSN: [id number] [facility] ANES PRE-OPon 11-22-2023 ANES PRE-OP HNO ID: [id number] Author: JAYRO DAVILA MD Service: Anesthesiology Author Type: Physician Type: Anesthesia Preprocedure Evaluation Filed: 11/22/2023 09:14 Note Text: ANESTHESIOLOGY DAY OF SURGERY NOTE : 1960 Procedure Information Date/Time: 11/22/23 0800 Procedure: EXTRACORPOREAL SHOCKWAVE LITHOTRIPSY UNILATERAL (Right: Renal) Location: ME OR / ME OR Surgeons: Mathew Yang Jr., MD Estimated body mass index is 32.28 kg/m? as calculated from the following: Height as of 06/22/23: 165.1 cm (5' 5 ). Weight as of 11/09/23: 88 kg (194 lb). Most recent hematocrit and potassium results: Hematocrit 44.8 05/08/2023 Potassium 5.1 06/11/2023 Relevant Problems ENDO (+) Acquired hypothyroidism -RENAL (+) Stage 3a chronic kidney disease (HCC) PULMONARY (+) NSIP (nonspecific interstitial pneumonitis) ([facility]) I - PHYSICAL EVALUATION AIRWAY Patient intubated: No. Tracheostomy tube not present Mallampati: II. TM distance: >3 FB. Neck ROM: full ROM without neurological symptoms. Mouth opening: adequate. Short neck: no. Thick neck: no DENTAL Dental findings: missing tooth/teeth, chipped and broken tooth. Additional exam findings: no II - ANESTHESIA PLAN ASA Score: 3 Anesthetic Plan: general Airway type: LMA NPO Status: adequate Beta Ana Monitoring Plan Monitoring plan: standard ASA. Post Procedure Analgesic Plan Postoperative analgesic plan: parenteral or oral opioids and multimodal analgesia. Informed Consent Anesthetic risks, benefits, alternatives, personnel and consent discussed: yes. Patient / Responsible Constitution Party agrees to proceed: yes Patient / Surrogate agrees to blood products: Yes Significant changes in the patient condition since the History and Physical, not otherwise documented in primary service progress note: no. Vitals Value Taken Time BP 111/83 11/22/23726 Pulse 66 11/22/23726 Resp 18 11/22/23726 Temp 36.4 ?C (97.5 ?F) 11/22/23726 SpO2 100 % 11/22/23726 Facility-Administered Medications as of 11/22/2023 Medication Dose Route Frequency lidocaine (PF) 10 mg/mL (1 %) 1-2 mg injection (XYLOCAINE) 0.1-0.2 mL INTRADERMAL PRN lactated ringers iv infusion 5-30 mL/hr INTRAVENOUS CONTINUOUS NaCl 0.9% iv flush bag 20 mL INTRAVENOUS PRN [COMPLETED] acetaminophen 975 mg tab(s) (TYLENOL) 975 mg ORAL Pre-Op Once [COMPLETED] celecoxib 400 mg cap(s) (CeleBREX) 400 mg ORAL Pre-Op Once [COMPLETED] gabapentin 300 mg cap(s) (NEURONTIN) 300 mg ORAL Pre-Op Once ceFAZolin iv piggyback 2 g in D5W (iso-osmotic) 100 mL (ANCEF) 2 g INTRAVENOUS ONCE Outpatient Medications as of 11/22/2023 Medication Sig biotin 5 mg tab Take 5 mg by mouth once daily. propranolol (INDERAL) 20 mg tablet Take 1 tablet by mouth two times a day. estradiol (ESTRACE) 0.01 % (0.1 mg/gram) vaginal cream Use 1 g vaginally two times a week. metoclopramide HCl (REGLAN) 5 mg tablet Take 1 tablet by mouth three times a day. predniSONE (DELTASONE) 5 mg tablet Take 1 tablet by mouth once daily. levothyroxine (SYNTHROID) 100 mcg tablet Take 1 tablet by mouth once daily. Take on empty stomach mycophenolate Mofetil (CELLCEPT) 500 mg tablet Take 2 in am and one in pm calcium carbonate 600 mg-cholecalciferol 400 units 600 mg-10 mcg (400 unit) tab Take 1 tablet by mouth two times a day. aspirin, enteric coated (ASPIRIN, ENTERIC COATED) 81 mg EC tablet Take 81 mg by mouth once daily. multivit-min/iron/foli c acid/K (MULTI-DAY PLUS MINERALS ORAL) Take 1 capsule by mouth once daily. L.acidophilus-L.rhamno adiel (PROBIOTIC) 15 billion cell capsule Take 1 capsule by mouth once daily. trospium (SANCTURA) 20 mg tablet Take 1 tablet by mouth two times a day. (Patient not taking: Reported on 11/19/2023) I have interviewed and examined the patient. I have reviewed the medical record and/or the pre-anesthesia evaluation, pertinent labs, and test results. This contains updated information obtained within 48 hours of Surgery/Procedure. SIGNATURE: Jayro Davila MD PATIENT NAME: Asia Herbertiver DATE: November 22, 2023 TIME: 7:46 AM CSN: [id number] [facility] 11-22-2023 [facility] Telephone (AKPRAD) CHANDANASIA GRAJEDA ([id number]) 1960 F Date Time Provider Department 11/22/23 MATHEW YANG JR During your visit today, we recorded the following information about you: Mathew Yang Jr., MD 11/22/2023 8:45 AM Signed [facility] or 11/22/23 Fu with il 4 weeks Kub prior ordered Dee Long 11/22/2023 10:29 AM Signed Called and left vox Patient is scheduled December 21, 2023 at 2pm, [place] aviles Thank you Macrina Elder MA 11/25/2023 9:27 AM Signed Addended by: MACRINA PRADO on: 11/25/2023 09:27 AM Modules accepted: Orders Allergies As of Date: 11/22/2023 Noted Allergy Reaction ERYTHROMYCIN 09/14/2022 6 - Diarrhea HAY FEVER (SEASONAL ALLERGIES) 08/13/2009 ZYRTEC (CETIRIZINE HCL) 08/06/2014 9 - Itching Date Reviewed: 11/22/2023 Reviewed by: Luz Kohli RN - Fully Assessed Reason for Visit: Appointment [186] Primary Visit Diagnosis:Kidney stone [N20.0] Order(s):XR ABDOMEN 1V SUPINE [[id number]] Order #: [id number] FUTURE XR ABDOMEN 1V SUPINE [[id number]] Order #: [id number] FUTURE Prescriptions as of 11/25/2023 - nitrofurantoin monohydrate and macrocrystal (MACROBID) 100 mg capsule Take 1 capsule by mouth two times a day for 5 days. Start 2 days prior to botox. - cephALEXin (KEFLEX) 500 mg capsule Take 1 capsule by mouth three times a day for 7 days. - biotin 5 mg tab Take 5 mg by mouth once daily. - propranolol (INDERAL) 20 mg tablet Take 1 tablet by mouth two times a day. - trospium (SANCTURA) 20 mg tablet Take 1 tablet by mouth two times a day. - estradiol (ESTRACE) 0.01 % (0.1 mg/gram) vaginal cream Use 1 g vaginally two times a week. - metoclopramide HCl (REGLAN) 5 mg tablet Take 1 tablet by mouth three times a day. - predniSONE (DELTASONE) 5 mg tablet Take 1 tablet by mouth once daily. - levothyroxine (SYNTHROID) 100 mcg tablet Take 1 tablet by mouth once daily. Take on empty stomach - mycophenolate Mofetil (CELLCEPT) 500 mg tablet Take 2 in am and one in pm - calcium carbonate 600 mg-cholecalciferol 400 units 600 mg-10 mcg (400 unit) tab Take 1 tablet by mouth two times a day. - aspirin, enteric coated (ASPIRIN, ENTERIC COATED) 81 mg EC tablet Take 81 mg by mouth once daily. - multivit-min/iron/foli c acid/K (MULTI-DAY PLUS MINERALS ORAL) Take 1 capsule by mouth once daily. - L.acidophilus-L.rhamno adiel (PROBIOTIC) 15 billion cell capsule Take 1 capsule by mouth once daily. Facility-Administered Medications as of 11/25/2023 - onabotulinum toxin type A 200 Units injection (BOTOX) Meds Comments as of 06/22/2023: OTC Prevagen. Problem List As Of Date 11/22/2023 Noted Resolved Acquired hypothyroidism [E03.9] Abnormal Papanicolaou Smear of Vagina and Vagin* 02/06/2010 Dyspareunia [XSI2920] 05/03/2006 02/06/2010 Fx Sacrum/Coccyx-Closed [S32.10XA, S32.2XXA] 05/31/2007 02/06/2010 Fx Dorsal Vertebra-Closed [S22.009A] 11/19/2008 02/06/2010 Diverticulosis [K57.90] 02/06/2010 07/08/2018 Calcaneal spur [M77.30] 06/03/2010 10/01/2017 Hives [L50.9] 10/01/2017 Chronic urticaria [L50.8] 03/03/2012 10/01/2017 Open wound(s) (multiple) of unspecified site(s)*06/02/2012 10/01/2017 Primary osteoarthritis of first carpometacarpal*201707/08/2018 Obesity, Class I, BMI 30-34.9 E66.9 [E66.9] 09/03/2017 07/08/2018 GERD (gastroesophageal reflux disease) [K21.9] 10/01/2017 07/08/2018 Hyponatremia [E87.1] 06/14/2018 Generalized weakness [R53.1] 06/14/2018 06/19/2018 Numbness of tongue [R20.0] 06/14/2018 Severe protein-calorie malnutrition (HCC) [E43] 06/15/2018 06/22/2023 Orthostatic hypotension [I95.1] 06/18/2018 Hypovolemia [E86.1] 07/08/2018 07/09/2018 SIADH (syndrome of inappropriate ADH production*07/08/2018 06/22/2023 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] 07/17/2018 07/17/2018 Post-menopausal bleeding [N95.0] 11/25/2018 Cervical stenosis (uterine cervix) [N88.2] 11/25/2018 Endometrial polyp [N84.0] 11/25/2018 Dizziness [R42] 01/13/2019 Weight loss, non-intentional [R63.4] 02/12/2020 Thymoma, 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] 02/12/2020 06/22/2023 Lung nodules [R91.8] 02/12/2020 ILD (interstitial lung disease) (HCC) [J84.9] 03/25/2020 Discharge planning issues [Z75.8] 03/25/2020 Pain, postoperative, acute [G89.18] 03/25/2020 Esophageal dysmotility [K22.4] 07/31/2020 NSIP (nonspecific interstitial pneumonitis) (HC*10/30/2022 Current chronic use of systemic steroids [Z79.5*10/30/2022 High risk medication use [Z79.899] 10/30/2022 Stage 3a chronic kidney disease (HCC) [N18.31] 01/12/2023 Obesity, Class I, BMI 30-34.9 [E66.9] 06/22/2023 Encounter Status:Closed by MATHEW YANG on 11/22/23 [facility] HISTORY PHYSICALon HISTORY PHYSICAL HNO ID: [id number] Author: MATHEW YANG JR, MD Service: Urology Author Type: Physician Type: H&P Filed: 11/22/2023 07:54 Note Text: HANDP NOTE SERVICE DATE: 11/22/2023 SERVICE TIME: 7:53 AM CONSULTING SERVICE: Urology ASSESSMENT Right renal calculus PLAN Right extracorporeal shockwave lithotripsy SUBJECTIVE INTERVAL HPI: 63 yo F with ho right renal calculus presents for right extracorporeal shockwave lithotripsy MEDICATIONS: Current Facility-Administered Medications Medication Dose Route Frequency lidocaine (PF) 10 mg/mL (1 %) 1-2 mg injection (XYLOCAINE) 0.1-0.2 mL INTRADERMAL PRN lactated ringers iv infusion 5-30 mL/hr INTRAVENOUS CONTINUOUS NaCl 0.9% iv flush bag 20 mL INTRAVENOUS PRN ceFAZolin iv piggyback 2 g in D5W (iso-osmotic) 100 mL (ANCEF) 2 g INTRAVENOUS ONCE OBJECTIVE PHYSICAL EXAM: Patient Vitals for the past 24 hrs: BP Temp Temp src Pulse Resp SpO2 11/22/23 0727 111/83 36.4 ?C (97.5 ?F) Temporal 66 18 100 % There is no height or weight on file to calculate BMI. GENERAL: Alert, no distress, cooperative Heart rrr Lungs ctab ABDOMEN: Abdomen soft, non-tender. BS normal. No masses or organomegaly. GENITALIA MALE: Penis normal. No urethral discharge. Scrotum normal to palpation. No hernias. RECTAL: no hemorrhoids, no masses, normal tone, guaiac negative DATA: Diagnostic tests reviewed for today's visit: Most recent labs No results found for: PSA Glucose (mg/dL) Date Value 06/11/2023 117 (H) BUN (mg/dL) Date Value 06/11/2023 29 (H) Creatinine (mg/dL) Date Value 06/11/2023 1.23 (H) Sodium (mmol/L) Date Value 06/11/2023 139 Potassium (mmol/L) Date Value 06/11/2023 5.1 Chloride (mmol/L) Date Value 06/11/2023 104 CO2 (mmol/L) Date Value 06/11/2023 25 Protein, Total (g/dL) Date Value 05/08/2023 7.4 Albumin (g/dL) Date Value 05/08/2023 4.2 Calcium, Total (mg/dL) Date Value 06/11/2023 10.1 Alkaline Phosphatase (U/L) Date Value 05/08/2023 88 Bilirubin, Total (mg/dL) Date Value 05/08/2023 0.5 AST (U/L) Date Value 05/08/2023 23 ALT (U/L) Date Value 05/08/2023 14 Most recent imaging SIGNATURE: Mathew Yang Jr, MD PATIENT NAME: Asia Hawley DATE: November 22, 2023 TIME: 7:53 AM PAGER: [phone] Normal [facility] OPERATIVE NOon 11-22-2023 OPERATIVE NO HNO ID: [id number] Author: MATHEW YANG JR, MD Service: Urology Author Type: Resident Type: Operative Report Filed: 11/22/2023 09:11 Note Text: Attestation signed by Mathew Yang Jr., MD at 11/22/2023 9:11 AM I was present for the entire procedure and directly participated in the critical and alberts portions of the surgery. I was immediately available to provide assistance throughout the entire case. Mathew Yang Jr, MD OPERATIVE/PROCEDURE REPORT LOG ID: [id number] SURGERY/PROCEDURE DATE: 11/22/2023 INCISION/PROCEDURE START TIME: 8:13 AM INCISION CLOSE/PROCEDURE END TIME: 8:49 AM SURGEON(S)/PROCEDURALI ST(S) AND SUPPORT ASSOCIATE(S): Surgeon(s) and Role: * Mathew Yang Jr., MD - Primary * Denver Callaway MD - Resident - Assisting No Additional Staff ANESTHESIA: General Procedures Right ESWL OPERATIVE/PROCEDURE REPORT LOG ID: [id number] SURGERY/PROCEDURE DATE: 11/22/2023 INCISION/PROCEDURE START TIME: 8:13 AM INCISION CLOSE/PROCEDURE END TIME: 8:49 AM SURGEON(S)/CELINAI ST(S) AND SUPPORT ASSOCIATE(S): Surgeon(s) and Role: * Mathew Yang Jr., MD - Primary * Denver Callaway MD - Resident - Assisting No Additional Staff SURGERY/PROCEDURE(S): Right extracorporeal shock wave lithotripsy ANESTHESIA: General SURGERY/PROCEDURE DETAILS: Asia Hawley is a 63 year old patient who presents with a R renal calculus. After having a discussion on treatment options, risks and benefits, the patient wishes to proceed forward with surgical intervention. Patient was brought to the operating room and identified using name band/number. A thorough time out was performed and everyone present was in agreement. Patient was placed on OR table. Anesthesia and lines were maintained by the anesthesia team. ESWL Patient was placed in the supine position. Using flouroscopic visualization, the calculus was able to be visualized. The focal point of the lithotripter was positioned over the stone in a three dimensional coordinate plane. A total of 2500 shocks were delivered with fluoroscopic guidance at an initial rate of 60, then 80. There was fragmentation of the stone seen at the termination of the procedure PRE-OP/PRE-PROCEDURE DIAGNOSIS: Renal calculus, right [N20.0] POST-OP/POST-PROCEDURE DIAGNOSIS: Same ESTIMATED BLOOD LOSS: 0 ml SPECIMENS: None IMPLANTABLE DEVICES: NONE DRAINS: None COMPLICATIONS: None PARTICIPATION IN SURGERY/PROCEDURE: I/primary surgeon/proceduralist performed the procedure with assistance. SIGNATURE: Denver Callaway MD PATIENT NAME: Asia Hawley DATE: November 22, 2023 TIME: 9:00 AM PAGER/CONTACT #: [phone] SPECIMENS: COMPLETED BY: Denver Callaway MD PATIENT NAME: Asia Huitron Chandan DATE: November 22, 2023 TIME: 8:59 AM AGE: [age] year old Normal [facility] XR ABDOMEN 1V SUPINEon 11-21 XR ABDOMEN 1V SUPINE * * *Final Report* * * DATE OF EXAM: Nov 22 2023 6:59AM AKX [id number] - XR ABDOMEN 1V SUPINE / PROCEDURE REASON: Pre/Post operative evaluation * * * * Physician Interpretation * * * * SUPINE ABDOMEN: CLINICAL INDICATION: Right renal calculus. Right extracorporeal shockwave lithotripsy. COMPARISON: Abdomen radiographs 11/04/2023 and 08/11/2022, CT urogram 06/09/[address] abdomen and pelvis 07/10/2018. Supine KUB type abdomen and AP transverse upper abdomen radiographs are submitted. Evaluation for the presence of a renal calculi is considered limited by bowel gas and feculent material. Within this constraint, there are two calcifications measuring 8 mm and 10 mm in size in the expected location of the right kidney. There is no definite left renal calculus. There are multiple pelvic calcifications, predominantly within the right hemipelvis measuring 6 mm and less in size, presumed phleboliths. There is a tubular calcification within left hemipelvis at the level of the ischial spine measuring approximately 28 mm in length by 5 mm in width. There is a nonobstructive distribution of bowel gas. Redemonstrated sigmoid anastomotic suture material and left-sided sacral stimulator. No acute bony abnormality. IMPRESSION: Couple of right-sided renal calculi measuring 8 mm and 10 mm in size. 5 x 28 mm tubular calcification within the left hemipelvis at the level of the ischial spine, concerning for left-sided distal ureter calculus. Oim Consultant: [facility] Transcribe Date/Time: Nov 22 2023 8:25A Dictated by : GUILLERMO DEE MD This examination was interpreted and the report reviewed and electronically signed by: GUILLERMO DEE MD on Nov 22 2023 8:35AM EST [id number] Normal [facility] Bacteria Ur Culton 4 Bacteria identified Cx Nom (U) CULTURE, URINE: Mixed microbiota, including predominantly: ORGANISM ID: 1 50,000-<100,000 CFU/ml Proteus mirabilis ORGANISM ID: 1 (PROTEUS MIRABILIS) -- ANTIBIOTIC INTERPRETATION MELVIN STATUS REFERENCE RANGE -- Ampicillin S <=2 F Susceptible <=8 , Intermediate >8 , Resistant >16 Cefazolin S <=4 F Susceptible 0-16 , Intermediate <0 or >16 , Resistant >16 For uncomplicated urinary tract infections, cefazolin results can be used to predict susceptibility or resistance to cephalexin. Ceftriaxone S <=1 F Susceptible <=1 , Intermediate >1 , Resistant >=4 Cefepime S <=1 F Susceptible <=2 , Susceptible-Dose Dependent >2 , Resistant >=16 Ertapenem S <=0.5 F Susceptible <=0.5 , Intermediate >.5 , Resistant >1 Meropenem S <=0.25 F Susceptible <=1 , Intermediate >1 , Resistant >2 Ampicillin/Sulbact S <=2 F Susceptible <=8 , Intermediate >8 , Resistant >16 Piperacillin/Tazobac S <=4 F Susceptible <16 , Susceptible-Dose Dependent >=16 , Resistant >=32 Gentamicin S <=1 F Susceptible <=2 , Intermediate >2 , Resistant >=8 Tobramycin S <=1 F Susceptible <4 , Intermediate >=4 , Resistant >=8 Trimeth sulfameth S <=20 F Susceptible <=40 , Resistant >40 Ciprofloxacin S <=0.25 F Susceptible <0.5 , Intermediate >=.5 , Resistant >=1 Nitrofurantoin R 128 F Susceptible <=32 , Intermediate >32 , Resistant >64 Abnormal [facility] Comment on above: Performed By: #### 6 30-4 ####[facility] LABCLIA [id number] [address] [place] 11-12-2023 CNPN Telephone (MINO) ASIA HAWLEY ([id number]) 1960 F Date Time Provider Department 11/12/23 WILEY BENITEZ During your visit today, we recorded the following information about you: Lacy Romero 11/12/2023 2:37 PM Signed Emely MARTINEZ from [facility] re: Approved Botox 200units Botox approved every 90 days during 11/04/23-11/02/24 Approval number [id number] Will route to care coordinators. See encounter 10/20/23 Allergies As of Date: 11/12/2023 Noted Allergy Reaction ERYTHROMYCIN 09/14/2022 6 - Diarrhea HAY FEVER (SEASONAL ALLERGIES) 08/13/2009 ZYRTEC (CETIRIZINE HCL) 08/06/2014 9 - Itching Date Reviewed: 11/09/2023 Reviewed by: Mathew Yang Jr., MD - Fully Assessed Reason for Visit: Route Rider - Other [3602] Prescriptions as of 11/12/2023 - propranolol (INDERAL) 20 mg tablet Take 1 tablet by mouth two times a day. - trospium (SANCTURA) 20 mg tablet Take 1 tablet by mouth two times a day. - estradiol (ESTRACE) 0.01 % (0.1 mg/gram) vaginal cream Use 1 g vaginally two times a week. - metoclopramide HCl (REGLAN) 5 mg tablet Take 1 tablet by mouth three times a day. - predniSONE (DELTASONE) 5 mg tablet Take 1 tablet by mouth once daily. - levothyroxine (SYNTHROID) 100 mcg tablet Take 1 tablet by mouth once daily. Take on empty stomach - mycophenolate Mofetil (CELLCEPT) 500 mg tablet Take 2 in am and one in pm - calcium carbonate 600 mg-cholecalciferol 400 units 600 mg-10 mcg (400 unit) tab Take 1 tablet by mouth two times a day. - aspirin, enteric coated (ASPIRIN, ENTERIC COATED) 81 mg EC tablet Take 81 mg by mouth once daily. - multivit-min/iron/foli c acid/K (MULTI-DAY PLUS MINERALS ORAL) Take 1 capsule by mouth once daily. - L.acidophilus-L.rhamno adiel (PROBIOTIC) 15 billion cell capsule Take 1 capsule by mouth once daily. Facility-Administered Medications as of 11/12/2023 - onabotulinum toxin type A 200 Units injection (BOTOX) - onabotulinum toxin type A 100 Units injection (BOTOX) Meds Comments as of 06/22/2023: OTC Prevagen. Problem List As Of Date 11/12/2023 Noted Resolved Acquired hypothyroidism [E03.9] Abnormal Papanicolaou Smear of Vagina and Vagin* 02/06/2010 Dyspareunia [[id number]] 05/03/2006 02/06/2010 Fx Sacrum/Coccyx-Closed [S32.10XA, S32.2XXA] 05/31/2007 02/06/2010 Fx Dorsal Vertebra-Closed [S22.009A] 11/19/2008 02/06/2010 Diverticulosis [K57.90] 02/06/2010 07/08/2018 Calcaneal spur [M77.30] 06/03/2010 10/01/2017 Hives [L50.9] 10/01/2017 Chronic urticaria [L50.8] 03/03/2012 10/01/2017 Open wound(s) (multiple) of unspecified site(s)*06/02/2012 10/01/2017 Primary osteoarthritis of first carpometacarpal*201707/08/2018 Obesity, Class I, BMI 30-34.9 E66.9 [E66.9] 09/03/2017 07/08/2018 GERD (gastroesophageal reflux disease) [K21.9] 10/01/2017 07/08/2018 Hyponatremia [E87.1] 06/14/2018 Generalized weakness [R53.1] 06/14/2018 06/19/2018 Numbness of tongue [R20.0] 06/14/2018 Severe protein-calorie malnutrition (HCC) [E43] 06/15/2018 06/22/2023 Orthostatic hypotension [I95.1] 06/18/2018 Hypovolemia [E86.1] 07/08/2018 07/09/2018 SIADH (syndrome of inappropriate ADH production*07/08/2018 06/22/2023 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] 07/17/2018 07/17/2018 Post-menopausal bleeding [N95.0] 11/25/2018 Cervical stenosis (uterine cervix) [N88.2] 11/25/2018 Endometrial polyp [N84.0] 11/25/2018 Dizziness [R42] 01/13/2019 Weight loss, non-intentional [R63.4] 02/12/2020 Thymoma, 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] 02/12/2020 06/22/2023 Lung nodules [R91.8] 02/12/2020 ILD (interstitial lung disease) (HCC) [J84.9] 03/25/2020 Discharge planning issues [Z75.8] 03/25/2020 Pain, postoperative, acute [G89.18] 03/25/2020 Esophageal dysmotility [K22.4] 07/31/2020 NSIP (nonspecific interstitial pneumonitis) (HC*10/30/2022 Current chronic use of systemic steroids [Z79.5*10/30/2022 High risk medication use [Z79.899] 10/30/2022 Stage 3a chronic kidney disease (HCC) [N18.31] 01/12/2023 Obesity, Class I, BMI 30-34.9 [E66.9] 06/22/2023 Encounter Status:Closed by LACY ROMERO [facility]12[facility] ASIA AHWLEY ([id number]) 1960 F Date Time Provider Department 11/10/23 WILEY BENITEZ [facility] During your visit today, we recorded the following information about you: Pham (Pharmacy Seafood Service Team Member)Renzo 11/10/2023 9:32 AM Signed === PHARMACY TEAM ==== PEER TO PEER/APPEAL REQUESTED PROVIDER TO COMPLETE P2P or Appeal: APPEAL Payer: MMO DOS: TBD Drug Name(s) AND HCPCS/CPTCode(s): J0585 BOTOX Dx code(s) submitted: N32.81 (ICD-10-CM) - OAB (overactive bladder) Provider: WILEY BENITEZ Peer to Peer/Appeal reason: 100 UNITS MAX DOSE Timeframe to complete: 60 DAYS Date sent to provider: 11/10/2023 Courtesy page sent (PRN): No APPEAL: [id number] FAX: [phone] PHONE: [phone] Macrina Delgado RN 11/11/2023 8:46 AM Signed Appeal letter drafted and faxed to [facility] [place] Appeals Department at [phone]. Macrina Delgado RN Allergies As of Date: 11/10/2023 Noted Allergy Reaction ERYTHROMYCIN 09/14/2022 6 - Diarrhea HAY FEVER (SEASONAL ALLERGIES) 08/13/2009 ZYRTEC (CETIRIZINE HCL) 08/06/2014 9 - Itching Date Reviewed: 11/09/2023 Reviewed by: Mathew Yang Jr., MD - Fully Assessed Reason for Visit: Insurance Authorization [[id number]] Cmt: Prior Auth Denied: Appeal Requested Prescriptions as of 11/11/2023 - propranolol (INDERAL) 10 mg tablet Take 1 tablet by mouth two times a day. - trospium (SANCTURA) 20 mg tablet Take 1 tablet by mouth two times a day. - estradiol (ESTRACE) 0.01 % (0.1 mg/gram) vaginal cream Use 1 g vaginally two times a week. - metoclopramide HCl (REGLAN) 5 mg tablet Take 1 tablet by mouth three times a day. - predniSONE (DELTASONE) 5 mg tablet Take 1 tablet by mouth once daily. - levothyroxine (SYNTHROID) 100 mcg tablet Take 1 tablet by mouth once daily. Take on empty stomach - mycophenolate Mofetil (CELLCEPT) 500 mg tablet Take 2 in am and one in pm - calcium carbonate 600 mg-cholecalciferol 400 units 600 mg-10 mcg (400 unit) tab Take 1 tablet by mouth two times a day. - aspirin, enteric coated (ASPIRIN, ENTERIC COATED) 81 mg EC tablet Take 81 mg by mouth once daily. - multivit-min/iron/foli c acid/K (MULTI-DAY PLUS MINERALS ORAL) Take 1 capsule by mouth once daily. - L.acidophilus-L.rhamno adiel (PROBIOTIC) 15 billion cell capsule Take 1 capsule by mouth once daily. Facility-Administered Medications as of 11/11/2023 - onabotulinum toxin type A 200 Units injection (BOTOX) - onabotulinum toxin type A 100 Units injection (BOTOX) Meds Comments as of 06/22/2023: OTC Prevagen. Problem List As Of Date 11/10/2023 Noted Resolved Acquired hypothyroidism [E03.9] Abnormal Papanicolaou Smear of Vagina and Vagin* 02/06/2010 Dyspareunia [[id number]] 05/03/2006 02/06/2010 Fx Sacrum/Coccyx-Closed [S32.10XA, S32.2XXA] 05/31/2007 02/06/2010 Fx Dorsal Vertebra-Closed [S22.009A] 11/19/2008 02/06/2010 Diverticulosis [K57.90] 02/06/2010 07/08/2018 Calcaneal spur [M77.30] 06/03/2010 10/01/2017 Hives [L50.9] 10/01/2017 Chronic urticaria [L50.8] 03/03/2012 10/01/2017 Open wound(s) (multiple) of unspecified site(s)*06/02/2012 10/01/2017 Primary osteoarthritis of first carpometacarpal*201707/08/2018 Obesity, Class I, BMI 30-34.9 E66.9 [E66.9] 09/03/2017 07/08/2018 GERD (gastroesophageal reflux disease) [K21.9] 10/01/2017 07/08/2018 Hyponatremia [E87.1] 06/14/2018 Generalized weakness [R53.1] 06/14/2018 06/19/2018 Numbness of tongue [R20.0] 06/14/2018 Severe protein-calorie malnutrition (HCC) [E43] 06/15/2018 06/22/2023 Orthostatic hypotension [I95.1] 06/18/2018 Hypovolemia [E86.1] 07/08/2018 07/09/2018 SIADH (syndrome of inappropriate ADH production*07/08/2018 06/22/2023 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] 07/17/2018 07/17/2018 Post-menopausal bleeding [N95.0] 11/25/2018 Cervical stenosis (uterine cervix) [N88.2] 11/25/2018 Endometrial polyp [N84.0] 11/25/2018 Dizziness [R42] 01/13/2019 Weight loss, non-intentional [R63.4] 02/12/2020 Thymoma, 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] 02/12/2020 06/22/2023 Lung nodules [R91.8] 02/12/2020 ILD (interstitial lung disease) (HCC) [J84.9] 03/25/2020 Discharge planning issues [Z75.8] 03/25/2020 Pain, postoperative, acute [G89.18] 03/25/2020 Esophageal dysmotility [K22.4] 07/31/2020 NSIP (nonspecific interstitial pneumonitis) (HC*10/30/2022 Current chronic use of systemic steroids [Z79.5*10/30/2022 High risk medication use [Z79.899] 10/30/2022 Stage 3a chronic kidney disease (HCC) [N18.31] 01/12/2023 Obesity, Class I, BMI 30-34.9 [E66.9] 06/22/2023 Encounter Status:Closed by PHAM (PHARMACY RENZO TAYLOR on 11/10/23 Normal [facility] CNOVon 11-09-2023 CNOV Office Visit (UROLMD ) ASIA HAWLEY ([id number]) 1960 F Date Time Provider Department 11/09/23 9:00 AM MATHEW YANG JR [facility] During your visit today, we recorded the following information about you: Weight 88 kg Mathew Yang Jr., MD 11/09/2023 9:54 AM Signed ESTABLISHED PATIENT OFFICE VISIT HPI Asiayumiko Hawley is a 63 year old female who presents refer for frequency/urgency. On no current meds. Has to void q 2 hours day and night. Ho colon resection. Has severe constipation. Has bm 1x/week. Seeing her general surgeon soon. Supposed to be taking fiber, however has not been. On probiotic however. Does not get uti's per patient. Drinks minimal caffeine. Has long ho microhematuria. No imaging ever done 05/23/19 - better with oxy 10 er. Has not really addressed constipation 05/21/20 - stable on oxy 10 er. Constipation better. Ua+ 05/20/20 - oxybutynin no longer helping. Stopped. Would like to try another medicine for now. Would consider PFT in the spring. 08/11/22 - now seeing dr. Mg for botox injection to be done soon. She noticed blood in the urine. Ct scan showed r upj obstruction and L lower pole 9mm renal calc. No fever. No uti. No flank pain. 11/03/22 - renal lasix scan discussed. No signs of obstruction. Kub did not show L lower pole 8mm calc. Options discussed including laser litho vs. Surveillance. 6/25/24 - doing ok since last seen. No stone episode. Kub shows 2 r renal calc. No pain. No fever. No uti. Opitons discussed. LAB: Creatinine Date Value Ref Range Status 06/11/2023 1.23 (H) 0.58 - 0.96 mg/dL Final No results found for: PSA Glucose, Urine Date Value 05/22/2022 Negative 03/22/2020 Negative mg/dL Bilirubin, Urine (no units) Date Value 05/22/2022 Negative 03/22/2020 Negative Ketones, Urine (no units) Date Value 05/22/2022 Negative 03/22/2020 Negative Specific [place], Ur (no units) Date Value 05/22/2022 1.010 03/22/2020 1.021 Hemoglobin/Blood,Ur Date Value 05/22/2022 3+ 03/22/2020 2+ pH, Urine (no units) Date Value 05/22/2022 7.0 03/22/2020 6.0 Protein, Urine (no units) Date Value 05/22/2022 1+ 03/22/2020 2+ Urobilinogen, Urine (EU) Date Value 04/13/2011 normal Nitrites (no units) Date Value 05/22/2022 Negative 03/22/2020 Negative Leukocytes (no units) Date Value 04/13/2011 large WBC, Urine Date Value 05/22/2022 6-10 /HPF 03/22/2020 0-5 /HPF Color/Appearance (comment:) Date Value 04/13/2011 tea/cloudy MEDICATIONS: propranolol (INDERAL) 10 mg tabletTake 1 tablet by mouth two times a day.Disp: 60 tabletRfl: 5 trospium (SANCTURA) 20 mg tabletTake 1 tablet by mouth two times a day.Disp: 60 tabletRfl: 5 (Patient taking differently: Take 20 mg by mouth two times a day.) estradiol (ESTRACE) 0.01 % (0.1 mg/gram) vaginal creamUse 1 g vaginally two times a week.Disp: 42.5 gRfl: 0 metoclopramide HCl (REGLAN) 5 mg tabletTake 1 tablet by mouth three times a day.Disp: 90 tabletRfl: 5 predniSONE (DELTASONE) 5 mg tabletTake 1 tablet by mouth once daily.Disp: 30 tabletRfl: 5 levothyroxine (SYNTHROID) 100 mcg tabletTake 1 tablet by mouth once daily. Take on empty stomachDisp: 90 tabletRfl: 3 mycophenolate Mofetil (CELLCEPT) 500 mg tabletTake 2 in am and one in pmDisp: 270 tabletRfl: 3 calcium carbonate 600 mg-cholecalciferol 400 units 600 mg-10 mcg (400 unit) tabTake 1 tablet by mouth two times a day.Disp: 180 tabletRfl: 1 aspirin, enteric coated (ASPIRIN, ENTERIC COATED) 81 mg EC tabletTake 81 mg by mouth once daily.Disp: Rfl: multivit-min/iron/foli c acid/K (MULTI-DAY PLUS MINERALS ORAL)Take 1 capsule by mouth once daily.Disp: Rfl: L.acidophilus-L.rhamno adiel (PROBIOTIC) 15 billion cell capsuleTake 1 capsule by mouth once daily.Disp: Rfl: REVIEW OF SYSTEMS Review of Systems Constitutional: Negative. Respiratory: Negative. Cardiovascular: Negative. Gastrointestinal: Negative. Genitourinary: Negative. Skin: Negative. Neurological: Negative. Psychiatric/Behavioral : Negative. 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 [facility] DIP, URINE (POC)on 2023 BILIRUBIN UA (POCT) Negative Negative [facility] CLARITY UA (POCT) Slightly Cloudy Cl [facility] COLOR UA (POCT) Dark yellow [facility] GLUCOSE UA (POCT) Negative Negative mg/dL [facility] Hemoglobin Ql (U) Large Abnormal Negative [facility] Interpretation and review of laboratory results Abnormal [facility] KETONE UA (POCT) Negative Negative mg/dL [facility] LEUKOCYTES UA (POCT) Moderate Abnormal Negative [facility] NITRITE UA (POCT) Negative Negative [facility] PH UA (POCT) 5.5 4.5 - 8.0 [facility] Protein Ql (U) >=300 Abnormal Negative mg/dL [facility] SPECIFIC GRAVITY UA (POCT) 1.020 1.005 - 1.030 [facility] UROBILINOGEN UA (POCT) 0.2 Normal E.U./dL [facility] Location:[facility], [address] [place], [address] [facility] POINT OF CARE [facility] XR ABDOMEN 1V SUPINEon 11-03 XR ABDOMEN 1V SUPINE * * *Final Report* * * DATE OF EXAM: Nov 04 2023 8:02AM [id number] [id number] - XR ABDOMEN 1V SUPINE / PROCEDURE REASON: Kidney stone * * * * Physician Interpretation * * * * XR ABDOMEN 1V SUPINE PROVIDED HISTORY: Kidney stone COMPARISON: 08/11/2022 TECHNIQUE: Supine abdomen RESULT: Sacral stimulator lead is noted. Large amount of stool in the colon. At least 2 calcific densities in the region of the lower pole the right kidney measuring up to 9 mm in size. No left renal stones are seen. No free air is identified. Osseous structures appear grossly unremarkable IMPRESSION: 2 right renal stones approximately 9 mm and 7 mm in size. Possible constipation Oim Consultant: [facility] Transcribe Date/Time: Nov 08 2023 9:57P Dictated by : HENNY REYES MD This examination was interpreted and the report reviewed and electronically signed by: HENNY REYES MD on Nov 08 2023 9:57PM EST [id number] Normal [facility] CNPNon 11-02-2023 CNPN Telephone ([facility]) ASIA HAWLEY ([id number]) 1960 F Date Time Provider Department 11/02/23 WILEY BENITEZ [facility] During your visit today, we recorded the following information about you: Pham (Pharmacy Seafood Service Team Member)Renzo 11/02/2023 10:01 AM Signed === PHARMACY TEAM ==== ADDITIONAL INFORMATION NEEDED/REQUESTED Case Submitted: No Request Type: Provider Date of Service: 11/03/2023 Additional Information Needed: PER POLICY MAX DOSE 100 UNITS (HOW WOULD YOU LIKE TO PROCEED) Request from Payor by: N/A Email Sent to: ENCOUNTER-WILEY BENITEZ Requested Clinicals/Information Sent: N/A Chandler Calle RN 11/02/2023 10:53 AM Signed Cancelled appt for 11/02. Will wait to get 200 units approved. See TE on 10/19. Chandler Calle RN November 02, 2023 10:53 AM Chandler Calle RN 11/04/2023 4:09 PM Signed Pham (Pharmacy Seafood Service Team Member)Renzo You; Earline Almaguere1 hour ago (2:36 PM) Good afternoon, Case was submitted for 200 units and per payer requesting a peer 2 peer [phone] [id number] Renzo ---- Called the number above. Scheduled P2P with myself for tomorrow (11/04). Chandler Calle RN November 04, 2023 4:09 PM Chandler Calle RN 11/05/2023 12:35 PM Signed P2P completed. Advised the case will be addressed within 24 hours. Since it is Wednesday - we should hear by Wednesday (11/07). Chandler Calle RN November 05, 2023 12:35 PM Allergies As of Date: 11/02/2023 Noted Allergy Reaction ERYTHROMYCIN 09/14/2022 6 - Diarrhea HAY FEVER (SEASONAL ALLERGIES) 08/13/2009 ZYRTEC (CETIRIZINE HCL) 08/06/2014 9 - Itching Date Reviewed: 10/14/2023 Reviewed by: Mariam Woods LPN - Fully Assessed Reason for Visit: Insurance Authorization [[id number]] Cmt: Prior Auth Delayed Additional Information Needed Requested Prescriptions as of 11/05/2023 - propranolol (INDERAL) 10 mg tablet Take 1 tablet by mouth two times a day. - trospium (SANCTURA) 20 mg tablet Take 1 tablet by mouth two times a day. - estradiol (ESTRACE) 0.01 % (0.1 mg/gram) vaginal cream Use 1 g vaginally two times a week. - metoclopramide HCl (REGLAN) 5 mg tablet Take 1 tablet by mouth three times a day. - predniSONE (DELTASONE) 5 mg tablet Take 1 tablet by mouth once daily. - levothyroxine (SYNTHROID) 100 mcg tablet Take 1 tablet by mouth once daily. Take on empty stomach - mycophenolate Mofetil (CELLCEPT) 500 mg tablet Take 2 in am and one in pm - calcium carbonate 600 mg-cholecalciferol 400 units 600 mg-10 mcg (400 unit) tab Take 1 tablet by mouth two times a day. - aspirin, enteric coated (ASPIRIN, ENTERIC COATED) 81 mg EC tablet Take 81 mg by mouth once daily. - multivit-min/iron/foli c acid/K (MULTI-DAY PLUS MINERALS ORAL) Take 1 capsule by mouth once daily. - L.acidophilus-L.rhamno adiel (PROBIOTIC) 15 billion cell capsule Take 1 capsule by mouth once daily. Facility-Administered Medications as of 11/05/2023 - onabotulinum toxin type A 200 Units injection (BOTOX) - onabotulinum toxin type A 100 Units injection (BOTOX) Meds Comments as of 06/22/2023: OTC Prevagen. Problem List As Of Date 11/02/2023 Noted Resolved Acquired hypothyroidism [E03.9] Abnormal Papanicolaou Smear of Vagina and Vagin* 02/06/2010 Dyspareunia [[id number]] 05/03/2006 02/06/2010 Fx Sacrum/Coccyx-Closed [S32.10XA, S32.2XXA] 05/31/2007 02/06/2010 Fx Dorsal Vertebra-Closed [S22.009A] 11/19/2008 02/06/2010 Diverticulosis [K57.90] 02/06/2010 07/08/2018 Calcaneal spur [M77.30] 06/03/2010 10/01/2017 Hives [L50.9] 10/01/2017 Chronic urticaria [L50.8] 03/03/2012 10/01/2017 Open wound(s) (multiple) of unspecified site(s)*06/02/2012 10/01/2017 Primary osteoarthritis of first carpometacarpal*201707/08/2018 Obesity, Class I, BMI 30-34.9 E66.9 [E66.9] 09/03/2017 07/08/2018 GERD (gastroesophageal reflux disease) [K21.9] 10/01/2017 07/08/2018 Hyponatremia [E87.1] 06/14/2018 Generalized weakness [R53.1] 06/14/2018 06/19/2018 Numbness of tongue [R20.0] 06/14/2018 Severe protein-calorie malnutrition (HCC) [E43] 06/15/2018 06/22/2023 Orthostatic hypotension [I95.1] 06/18/2018 Hypovolemia [E86.1] 07/08/2018 07/09/2018 SIADH (syndrome of inappropriate ADH production*07/08/2018 06/22/2023 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] 07/17/2018 07/17/2018 Post-menopausal bleeding [N95.0] 11/25/2018 Cervical stenosis (uterine cervix) [N88.2] 11/25/2018 Endometrial polyp [N84.0] 11/25/2018 Dizziness [R42] 01/13/2019 Weight loss, non-intentional [R63.4] 02/12/2020 Thymoma, 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 Normal [facility] CT CHEST WO IVCONon 06-18-[address] CHEST WO IVCON * * *Final Report* * * DATE OF EXAM: Nov 02 2023 8:58AM [facility] 0541 - CT CHEST WO IVCON / PROCEDURE REASON: Interstitial lung disease * * * * Physician Interpretation * * * * EXAMINATION: CHEST CT WITHOUT CONTRAST CLINICAL HISTORY: Interstitial lung disease. Technique: Spiral CT acquisition of the chest from the thoracic inlet to the upper abdomen without contrast. MQ: [id number] CT Radiation dose: Integrated Dose-length product (DLP) for this visit = 389 mGy*cm CT Dose Reduction Employed: Automated exposure control(AEC) and iterative recon Comparison: CT chest on 10/27/2022 RESULT: Limitations: None. Lines, tubes, and devices: None. Lung parenchyma and airways: The central airways are patent. There are reticular opacities with or without mild consolidations seen in the right middle lobe, lingula and bilateral lower lobes; overall findings similar to prior study. Also noted is traction bronchiectasis in the right lung. Postoperative changes/suture lines also seen in the right lung. No honeycombing or significant architectural distortion. The previously mentioned 5 mm nodule is no longer visualized, likely representing mucoid impaction. No definite new nodules seen. Multiple focal scarring seen in the bilateral lungs. No masses. Pleural space: No pleural effusion. No pleural thickening. Lower neck, lymph nodes, and mediastinum: Stable right thyroid nodule. No lymphadenopathy in the supraclavicular, axillary, mediastinal, or hilar regions. A small hiatal hernia is present. Heart, pericardium, and thoracic vessels: The thoracic aorta and main pulmonary artery are normal in caliber. The cardiac chambers are normal in size. No coronary artery atherosclerotic calcifications are noted, although the study is not optimized for coronary assessment. No pericardial effusion or thickening. Bones and soft tissues: Stable appearance of the spine. No destructive bone lesion. Chest wall soft tissue is unremarkable. Upper abdomen: Limited study through the upper abdomen demonstrates no interval changes. Localizer images: No additional findings. IMPRESSION: Reticular opacities with or without mild consolidations in the bilateral lungs. Traction bronchiectasis in the right lung. 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 No thoracic lymphadenopathy. Stable right thyroid nodule. Oim Consultant: JUAN Transcribe Date/Time: Nov 08 2023 9:00A Dictated by : MATT NAVARRO MD This examination was interpreted and the report reviewed and electronically signed by: MATT NAVARRO MD on Nov 08 2023 5:11PM EST [id number] [facility] ([facility]) ASIA HAWLEY ([id number]) 1960 F Date Time Provider Department 10/20/23 WILEY BENITEZ During your visit today, we recorded the following information about you: Chandler Calle RN 11/02/2023 10:44 AM Addendum Botox referral received for 100 units -- 2nd injection. Previous injection: 09/14/22 Auth did not populate. Entered auth. Will monitor status. PPX antibiotics: Macrobid sent 10/19 to [facility] in [place] Blood thinners: asa 81 mg LV: 10/06 with Barley Plan: 1. Overactive bladder - Continue to adjust interstim based off [employer] branch sales and service representative's recommendations - Discussed r/b/a of trospium, including possible side effects of dry eye, dry mouth, constipation, cognitive side effects when used senior living. CrCl calculated to be 65 mL/min. Rx sent. If no improvement in 4 weeks, patient to send VCharge message for alternative medication option. Is considering repeating botox too. - Order placed for Pelvic Floor Physical Therapy - Letter provided for patient as she was summoned for jury duty and is unable to hold urine for more than 20 minutes now Called pt and verified name/. Offered 11/02 at 1:30pm. Pt accepted. Noted that if we can't get Botox approved by then I will give her a call 3-4 days prior to reschedule for a later date. 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 Chandler Calle RN October 20, 2023 9:50 AM Chandler Calle RN 10/21/2023 1:47 PM Signed 100 units Botox approved through 05/16/24 - NPCR Updated sticky note. Sent myc advising pt her Botox is approved. Chandler Calle RN October 21, 2023 1:47 PM Wiley Benitez MD 11/01/2023 3:53 PM Signed 200 units botox ordered Wiley Benitez MD 11/01/2023 3:53 PM Signed Addended by: WILEY BENITEZ on: 11/01/2023 03:53 PM Modules accepted: Orders Chandler Calle RN 11/01/2023 4:11 PM Signed Pt already approved for 100 units Botox. Pt may want to increase Botox to 200 units per staff message from [facility] in [place]. Order signed by Triston. Entered auth for 200 units and assigned to appt on 11/02. Will monitor. Chandler Calle RN November 01, 2023 4:11 PM Chandler Calle RN 11/02/2023 10:46 AM Addendum Wiley Benitez MD You 4 minutes ago (10:30 AM) We should wait. 100 didn't do anything for her, she can reschedule in a few weeks. Thank you, Ali You Wiley Benitez MD 17 minutes ago (10:17 AM) Hi Dr. Herring. I asked pharm auth about an appeal option, but this will not be finalized by the patient's appointment tomorrow. Do you want to reschedule her appointment for a time we can hopefully get 200 units approved or keep it tomorrow and do 100 units? - Called pt and verified name/. Advised pt the 200 units is not approved, and we will cancel appt tomorrow - appt cancelled. We will reschedule once we have approval. She did start taking the Macrobid yesterday - I told her she could discontinue. When we reschedule she will need a new script for ppx abx. Will work with pharm auth to get 200 units approved. Chandler Calle RN November 02, 2023 10:46 AM Macrina Delgado RN 11/10/2023 10:36 AM Signed [facility] [phone]. Macrina Delgado RN November 10, 2023 10:35 AM Macrina Delgado RN 11/12/2023 2:59 PM Signed Emely MATRINEZ from [facility] re: Approved Botox 200units Botox approved every 90 days during 11/04/23-11/02/24 Approval number [id number] Will route to care coordinators. See encounter 10/20/23 Above myc message received from RN in [place]. Referral has not yet been updated. Email sent to pharm auth. Macrina Delgado RN November 12, 2023 2:55 PM Chandler Calle RN 11/24/2023 11:13 AM Signed Botox approved and authorization is updated. Updated sticky note. Needs new script for ppx abx as pt took her prior to cancelled appointment. Pended. Blood thinners: asa 81 mg. Sending to solid state tester for abx. Chandler Calle RN November 24, 2023 11:13 AM === PHARMACY TEAM ==== APPROVAL RECEIVED Benefit Type: Medical Insurance Name: MMO Authorization received via portal: [facility] [facility] [facility] Code[facility] J0585 BOTOX Approval Date Range: 11/04/2023 to 11/02/2024 Approval #: [id number] Dose AND Frequency: 200 UNITS EVERY 12 WEEKS # Visits/Treatments (if applicable): 5 VISITS Chandler Calle RN 11/24/2023 11:13 AM Signed Addended by: CHANDLER CALLE on: 11/24/2023 11:13 AM Modules accepted: Orders Teri Washington APRN.SAMIR 11/24/2023 11:17 AM Signed The following approved medication requests have been transmitted electronically. Requested Prescriptions Signed Prescriptions Disp Refills nitrofurantoin monohydrate and macrocrystal (MACROBID) 100 mg capsule 10 capsule 0 Sig: Take 1 capsule by mouth two times a day for 5 days. Start 2 days prior to botox. Authorizing Provider: Yumiko WASHINGTON (more content not included)... Normal [facility] CNOVon 10-14-2023 CNOV Office Visit (FAMPWS ) ASIA HAWLEY ([id number]) 1960 F Date Time Provider Department 10/14/23 7:00 AM [facility] During your visit today, we recorded the following information about you: Pulse Respiration Blood pressure Weight 98/minute 16/minute 98/66 88.9 kg Jacqueline Carpenter APRN.[facility] 10/14/2023 7:46 AM Signed This is a 63 year old female who presents today with: Patient presents with: Acute Visit: Tremors in hands and mouth HISTORY OF PRESENT ILLNESS: Asia Hawley is a 63 year old female. Patient presents with: Acute Visit: Tremors in hands and mouth Here in the office for tremors. Started about a year ago, iniatlly started in the right hand. Has now noticed both hands and mouth/chin. Difficulty with eating and drinking, hand tremors will spill contents. Difficulty writing. No shuffling gait or memory concerns. No family history of Parkinson's. 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, 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 Unspecified hypothyroidism PAST SURGICAL HISTORY Procedure Laterality Date ARTHRP INTERPOS INTERCARPAL/METACARPAL JOINTS Right 10/13/2017 Right thumb CMC arthroplasty with LRTI CAUTERY CERVIX CRYOCAUTERY INITIAL/REPEAT 1999 CHOLECYSTECTOMY Cholecystectomy COLONOSCOPY FLX DX W/COLLJ SPEC WHEN PFRMD 04/10/2009 COLONOSCOPY FLX DX W/COLLJ SPEC WHEN PFRMD 09/05/2014 Repeat 2024 COLONOSCOPY FLX DX W/COLLJ SPEC WHEN PFRMD 12/22/2017 Colonoscopy COLPOSCOPY CERVIX UPPER/ADJACENT VAGINA Multiple starting 1995 Colposcopy LAPAROSCOPY COLECTOMY PARTIAL W/ANASTOMOSIS 12/07/2009 diverticulitis LIG/TRNSXJ FLP TUBE ABDL/VAG APPR UNI/BI Tubal ligation LX PARTIAL COLECTOMY 12/23/2017 [facility] lap lysis of adhesions, left oopherectomy, right salpinoopherectomy, left salpingectomy, redo lap sigmoid colectomy w/ressection, lap mobilization of splenic flexure, lap appendectomy PAST SURGICAL HISTORY OF 10/2008 T9-L1 fusion, Dr. Lemon PAST SURGICAL HISTORY OF 10/24/2009 Removed T9-L1, 2 rods and 8 screws, Dr Lemon PAST SURGICAL HISTORY OF 11/2018 Hysteroscopy with DANDC and Polypectomy with [employer]hew Truclear device PICC LINE INSERT/CONSULT 07/11/2018 THYMECTOMY PRTL/TOT TRANSCERVICAL APPR SPX 07/14/2018 WEDGE RESECT LUNG Right 03/25/2020 Right VATS wedge resection of upper, middle and lower lung for pulmonary infiltrates ALLERGIES Erythromycin, Hay Fever [Seasonal Allergies], and Zyrtec [Cetirizine Hcl] MEDICATIONS Current Outpatient Medications Medication Sig trospium (SANCTURA) 20 mg tablet Take 1 tablet by mouth two times a day. estradiol (ESTRACE) 0.01 % (0.1 mg/gram) vaginal cream Use 1 g vaginally two times a week. metoclopramide HCl (REGLAN) 5 mg tablet Take 1 tablet by mouth three times a day. predniSONE (DELTASONE) 5 mg tablet Take 1 tablet by mouth once daily. levothyroxine (SYNTHROID) 100 mcg tablet Take 1 tablet by mouth once daily. Take on empty stomach mycophenolate Mofetil (CELLCEPT) 500 mg tablet Take 2 in am and one in pm calcium carbonate 600 mg-cholecalciferol 400 units 600 mg-10 mcg (400 unit) tab Take 1 tablet by mouth two times a day. aspirin, enteric coated (ASPIRIN, ENTERIC COATED) 81 mg EC tablet Take 81 mg by mouth once daily. multivit-min/iron/foli c acid/K (MULTI-DAY PLUS MINERALS ORAL) Take 1 capsule by mouth once daily. L.acidophilus-L.rhamno adiel (PROBIOTIC) 15 billion cell capsule Take 1 capsule by mouth once daily. No current facility-administered medications for this visit. FAMILY HISTORY Problem Relation Age of Onset Hypertension Mother Thyroid Mother Heart Father Hypertension Father COPD Father Smoker. Heart Maternal Grandmother Stroke Maternal Grandmother Cancer Maternal Grandmother COLON Cancer Paternal Grandmother STOMACH Anesthesia Problems No Family History Social History Tobacco Use Smoking status: Never Smokeless tobacco: Never Tobacco comments: No one in household smokes. Smoker in childhood home. Vaping Use Vaping Use: Never used Substance Use Topics Alcohol use: Yes Comment: Rarely Drug use: No REVIEW OF SYSTEMS GENERAL: No weight loss, malaise or fevers/chills HEENT: Negative for frequent or significant hea (more content not included)... Normal [facility] BRAD/TRICHOMONAS NAATon 0 10-07-2023 C. glabrata RNA COLTEN+probe Ql (Vag fld) Negative Normal Negative for Brad glabrata [facility] Comment on above: Order Comment: Speci men Type: SWABOrdering Facility: [facility] Address: [address] [place] [address] Performed By: #### C VTV ####[facility] LABCLIA [id number] [place] [address] [place] Brad sp DNA COLTEN+probe Ql (Vag fld) Negative Normal Negative for Brad species [facility] Comment on above: Order Comment: Speci men Type: SWABOrdering Facility: [facility] Address: [address] [place] [address] Performed By: #### C VTV ####[facility] LABCLIA [id number] [place] [address] [place] T. vaginalis DNA COLTEN+probe Ql (Unsp spec) Negative Normal Negative for Trichomonas vaginalis by amplification [facility] Comment on above: Order Comment: Speci men Type: SWABOrdering Facility: [facility] Address: [address] [place] [address] Performed By: #### C VTV ####[facility] LABCLIA [id number] [address] [place] [id number] [place] [id number] [place] CNOVon 10-07-2023 CNOV Office Visit (GYNURM ) ASIA HAWLEY ([id number]) 1960 F Date Time Provider Department 10/07/23 8:30 AM TARIQ BROOKS [facility] During your visit today, we recorded the following information about you: Blood pressure 121/82 Tariq Brooks APRN.PARTY BUS DRIVER 10/07/2023 9:40 AM Signed Female Pelvic Medicine AND Reconstructive Surgery Follow-Up Asia Hawley is a 63 year old female, who presents for a follow-up of vulvar burning, urinary frequency. History since last visit: Has been applying vaginal estrogen cream with applicator 3x/week, states vulvar burning has significantly improved. Still has occasional burning. Spoke with [employer], was put on program 6 at 1.4 x 1 month. Recently increased amplitude to 1.8 last week. Is now only waking up 1x/hour at night. Voiding every 20 mintues during the day. Has been missing grandchildren graduation/events due to urinary symptoms. Would like to try adjunct therapy. Urinary Incontinence: yes, some Voiding Dysfunction: no Urinary Frequency: yes, normal for her Urinary Urgency: yes, some Prolapse Symptoms: no Defecatory Dysfunction: no Fecal Incontinence: no Abnormal Bleeding: no Pain: no Abnormal Vaginal Discharge: no I have confirmed and edited as necessary, the PFSH obtained by others. Tariq Brooks APRN.PARTY BUS DRIVER Utilities Operator offered: Patient declines. OBJECTIVE: LMP 01/07/2011 General: Well appearing, alert, in no acute distress, well-hydrated, well nourished. Abdomen: Abdomen soft, non-tender Pelvic: Ext. Genitalia: No lesions or other abnormalities Vagina: atrophic epithelium, patient noted burning to be at posterior fourchette, atrophic tissue present Urethra: Normal Bimanual: No tenderness, No masses Rectovaginal: Deferred UA results: N/A Bladder scan: N/A Impression: Asia Hawley is a 63 year old female with OAB, vaginal burning, vaginal atrophy. Plan: 1. 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 CrCl calculated to be 65 mL/min. Rx sent. If no improvement in 4 weeks, patient to send [employer]Charge message for alternative medication option. Is considering repeating botox too. - Order placed for Pelvic Floor Physical Therapy - Letter provided for patient as she was summoned for jury duty and is unable to hold urine for more than 20 minutes now 2. Vulvar burning/vaginal atrophy - Continue vaginal estrogen cream, encouraged patient to target burning on posterior fourchette with finger - BRAD/TRICHOMONAS NAAT Medical Decision Making: Problems: Low: Acute, uncomplicated illness or injury Moderate: 1+ chronic illnesses with change Risk: Moderate: Drug management Medical Decision Making Level: 4 - Moderate KAITLIN Wood Karissa, APRN.CNP 10/07/2023 9:12 AM Signed Pelvic Floor Physical Therapy Call [phone] for an appointment for pelvic floor physical therapy. [email or web address] t [email or web address] [facility] -- [facility] -- [facility] -- [facility] and [facility], [place] -- [facility] -- [facility] Administrative [place], [address] -- [facility] -- [facility] -- [facility] -- [facility] -- [facility] -- [facility] -- [facility] and [facility] [place], [facility] -- [facility] -- [facility] Urgent and Outpatient Care, [facility] [place] -- [facility] Medical Outpatient [facility], [facility] -- [facility] and [facility], [facility] --[facility] Medical Offices [place] -- [facility] [place] -- [facility] AND Surgery [facility] -- [facility] Referring Provider: SELF [200] Allergies As of Date: 10/07/2023 Noted Allergy Reaction ERYTHROMYCIN 09/14/2022 6 - Diarrhea HAY FEVER (SEASONAL ALLERGIES) 08/13/2009 ZYRTEC (CETIRIZINE HCL) 08/06/2014 9 - Itching Date Reviewed: 10/07/2023 Reviewed by: Tariq Brooks APRN.PARTY BUS DRIVER - Fully Assessed Primary Visit Diagnosis:Overactive bladder [N32.81] Other Visit Diagnoses:Vulvar burning [N94.89] Vaginal atrophy [N95.2] Order(s):BRAD/TRICH OMONAS NAAT [SQCVTV] Order #: [id number]. #:[id number] trospium (SANCTURA) 20 mg tabletTake 1 tabl (more content not included)... Normal [facility] CNOVon 09-16-2023 CNOV Office Visit (PULMWS ) ASIA HAWLEY ([id number]) 1960 F Date Time Provider Department 09/16/23 1:15 PM ROWAN TEMPLE During your visit today, we recorded the following information about you: Pulse Respiration Blood pressure Weight 91/minute 16/minute 118/74 89.8 kg Rowan Temple MD 09/16/2023 3:50 PM Signed . Respiratory Ovid Note Patient name: Asia Hawley PCP: Priyanka Smith MD CC: Follow-up NSIP HPI: Asia Hawley 63 year old female never smoker with PMH significant for thymoma, hypothyroidism, GERD, esophageal dysmotility, ILD/NSIP. 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 Chest CT showed peribronchovascular groundglass opacities and central traction bronchiectasis. 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 She was started on prednisone and CellCept. Required increase in her CellCept dose to 1500 mg a day after surveillance CT showed new groundglass opacities. She has been on maintenance 5 mg of prednisone a day as well. She states that for months she only took CellCept once a day has her medication cost had changed and was prohibitive. She is now getting her CellCept via [facility] and not using her insurance which is resulted in more manageable payment. She states she has been doing well until recently. She has had a persistent urinary tract infection. Culture was positive for Proteus mirabilis. She has been on 2 courses of antibiotics. From a respiratory standpoint she denies any symptoms of shortness of breath, cough, chest pain. She has not been ill with any upper respiratory infections nor required hospitalization. No adverse effects from her CellCept. DATA: PFT 11/2022: Pulmonary function testing is normal Labs: Component Ref Range AND Units 4 mo ago (05/08/23) WBC 3.70 - 11.00 k/uL 11.50 High RBC 3.90 - 5.20 m/uL 5.15 Hemoglobin 11.5 - 15.5 g/dL 14.0 Hematocrit 36.0 - 46.0 % 44.8 MCV 80.0 - 100.0 fL 87.0 MCH 26.0 - 34.0 pg 27.2 MCHC 30.5 - 36.0 g/dL 31.3 RDW-CV 11.5 - 15.0 % 13.7 Platelet Count 150 - 400 k/uL 317 MPV 9.0 - 12.7 fL 10.5 Absolute nRBC <0.01 k/uL <0.01 Component Ref Range AND Units 4 mo ago (05/08/23) Protein, Total 6.3 - 8.0 g/dL 7.4 Albumin 3.9 - 4.9 g/dL 4.2 Calcium, Total 8.5 - 10.2 mg/dL 10.0 Bilirubin, Total 0.2 - 1.3 mg/dL 0.5 Alkaline Phosphatase 34 - 123 U/L 88 AST 13 - 35 U/L 23 ALT 7 - 38 U/L 14 BUN 7 - 21 mg/dL 29 High Creatinine 0.58 - 0.96 mg/dL 1.33 High Sodium 136 - 144 mmol/L 138 Potassium 3.7 - 5.1 mmol/L 4.0 Chloride 97 - 105 mmol/L 102 CO2 22 - 30 mmol/L 25 Anion Gap 9 - 18 mmol/L 11 Estimated Glomerular Filtration Rate >=60 mL/min/1.73m? 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 estradiol (ESTRACE) 0.01 % (0.1 mg/gram) vaginal cream Use 1 g vaginally two times a week. metoclopramide HCl (REGLAN) 5 mg tablet Take 1 tablet by mouth three times a day. predniSONE (DELTASONE) 5 mg tablet Take 1 tablet by mouth once daily. levothyroxine (SYNTHROID) 100 mcg tablet Take 1 tablet by mouth once daily. Take on empty stomach mycophenolate Mofetil (CELLCEPT) 500 mg tablet Take 2 in am and one in pm calcium carbonate 600 mg-cholecalciferol 400 units 600 mg-10 mcg (400 unit) tab Take 1 tablet by mouth two times a day. aspirin, enteric coated (ASPIRIN, ENTERIC COATED) 81 mg EC tablet Take 81 mg by mouth once daily. multivit-min/iron/foli c acid/K (MULTI-DAY PLUS MINERALS ORAL) Take 1 capsule by mouth once daily. L.acidophilus-L.rhamno adiel (PROBIOTIC) 15 billion cell capsule Take 1 capsule by mouth once daily. Social History Tobacco Use Smoking status: Never Smokeless tobacco: Never Tobacco comments: No one in household smokes. Smoker i (more content not included)... Normal [facility] Bacteria Ur Culton 4 Bacteria identified Cx Nom (U) ORGANISM ID: 1 10,000 -<50,000 CFU/ml Mixed microbiota No further workup. Mixed microbiota can be due to???urine???contamina tion with skin bacteria at time of collection or presence of a long-term urinary catheter. If a new culture is needed, please consider re-education of the patient on proper midstream collection technique or straight catheterization for???urine???collecti on. [facility] Comment on above: Performed By: #### 6 30-4 ####[facility] [id number] [address] [place] Bacteria Ur Culton 4 Bacteria identified Cx Nom (U) ORGANISM ID: 1 50,000-<100,000 CFU/ml Mixed microbiota No further workup. Mixed microbiota can be due to???urine???contamina tion with skin bacteria at time of collection or presence of a long-term urinary catheter. If a new culture is needed, please consider re-education of the patient on proper midstream collection technique or straight catheterization for???urine???collecti on. [facility] Comment on above: Performed By: #### 6 30-4 ####[facility] LABIA [id number] [place] [address] [place] Bacteria Ur Culton 04-18-202 4 Bacteria identified Cx Nom (U) CULTURE, URINE: Mixed microbiota, including predominantly: ORGANISM ID: 1 >=100,000 CFU/ml Proteus mirabilis ORGANISM ID: 1 (PROTEUS MIRABILIS) -- ANTIBIOTIC INTERPRETATION MELVIN STATUS REFERENCE RANGE -- Ampicillin S <=2 F Susceptible <=8 , Intermediate >8 , Resistant >16 Cefazolin S <=4 F Susceptible 0-16 , Intermediate <0 or >16 , Resistant >16 For uncomplicated urinary tract infections, cefazolin results can be used to predict susceptibility or resistance to cephalexin. Ceftriaxone S <=1 F Susceptible <=1 , Intermediate >1 , Resistant >=4 Cefepime S <=1 F Susceptible <=2 , Susceptible-Dose Dependent >2 , Resistant >=16 Ertapenem S <=0.5 F Susceptible <=0.5 , Intermediate >.5 , Resistant >1 Meropenem S <=0.25 F Susceptible <=1 , Intermediate >1 , Resistant >2 Ampicillin/Sulbact S <=2 F Susceptible <=8 , Intermediate >8 , Resistant >16 Piperacillin/Tazobac S <=4 F Susceptible <16 , Susceptible-Dose Dependent >=16 , Resistant >=32 Gentamicin S <=1 F Susceptible <=2 , Intermediate >2 , Resistant >=8 Tobramycin S <=1 F Susceptible <4 , Intermediate >=4 , Resistant >=8 Trimeth sulfameth S <=20 F Susceptible <=40 , Resistant >40 Ciprofloxacin S <=0.25 F Susceptible <0.5 , Intermediate >=.5 , Resistant >=1 Nitrofurantoin R 128 F Susceptible <=32 , Intermediate >32 , Resistant >64 Abnormal [facility] Comment on above: Performed By: #### 6 30-4 ####[facility] LABCLIA [id number] [address] [id number] [address] [place] CNOVon 09-02-2023 CNOV Office Visit (GYNURM ) ASIA HAWLEY ([id number]) 1960 F Date Time Provider Department 09/02/23 8:30 AM TARIQ BROOKS During your visit today, we recorded the following information about you: Blood pressure 102/72 Tariq Brooks, GARMENT PARTS CUTTER MACHINE.PARTY BUS DRIVER 09/02/2023 9:15 AM Signed Female Pelvic Medicine AND Reconstructive Surgery Follow-Up Asia Hawley is a 63 year old female, who presents for a follow-up of urinary incontinence, urinary urgency, urinary frequency. AMAN on 02/25/2023 with me: ASSESMENT: Asia Hawley is a 62 year old female who is post-op; stable and doing well post-operative course uncomplicated PLAN: - Increased amplitude to 2.0, patient tolerate increase well, denied sensation of change after a few moments - Reviewed how to increase amplitude and change program with patient, advised her to give every change about 2 weeks before making additional changes - Urine culture sent, patient prefers to wait for culture for antibiotics History since last visit: Here today with . States since last visit, she has tried all 7 interstim programs, advancing each in amplitude until she could not tolerate any higher. States some programs provided very minimal relief, others provided no relief. She states she tried calling Mary (Interstim Rep), but never heard back. Voiding every 20-30 minutes during the day, voiding every 1 hour during the night. Is producing urine at these voids. If she cannot find restroom, will leak urine. When she leaks, this will be a small to large amount. She changes pad 3-4 x/day. Does not leak in sleep. Drinks about 16 oz water, 8 oz of water or tea/lemonade, 8 oz milk. Does have some burning with urination when she drinks a bladder irritant. States the temporary PNE worked very well for her and this implant also worked well for the first week then she got a UTI. She received treatment but only had minimal improvement of urinary symptoms. Denies falls. Interstim placed 01/28/2023. Tried myrbetriq and oxybutynin without relief, tried 100 units of botox without improvement on 09/14/2022 and then proceeded with interstim, did not try 200 units. Does have a large kidney stone found on CT in 07/2022, follows with Dr. Yang. CrCl 67 mL/min. Has had recent CT urogram and cystoscopy (2022). Cystoscopy from 09/14/[address] Mg: IMPRESSION: Erythematous bladder with petechiae and bleeding upon distension s/p 100units Botox Interstim interrogation: Battery: Ok Impendence check: negative Currently on program 5, 5.3 Urinary Incontinence: yes, sometimes Voiding Dysfunction: no Urinary Frequency: yes, Urinary Urgency: yes, Prolapse Symptoms: no Defecatory Dysfunction: no Fecal Incontinence: no Abnormal Bleeding: no Pain: no Abnormal Vaginal Discharge: no I have confirmed and edited as necessary, the PFSH obtained by others. Tariq Brooks APRN.PARTY BUS DRIVER Utilities Operator offered: Patient declines. OBJECTIVE: BP 102/72 LMP 01/07/2011 General: Well appearing, alert, in no acute distress, well-hydrated, well nourished. Urine dip results: moderate blood, protein, large leukocytes Bladder scan: 0 ml Impression: Asia Hawley is a 63 year old female with OAB, urinary frequency, interstim in place. Plan: - Urine culture sent - Discussed r/b/a of empirical treatment with bactrim, rx sent. If urine culture positive, will consider extending course of treatment - If urine culture negative and no improvement of symptoms, will consider imaging to confirm placement - Patient considering medication management vs 200 units of botox - Phone number for Richie koehler, given to patient. Patient to call next week if symptoms do not improve despite antibiotics - Follow up in 1 week for virtual visit Medical Decision Making: Problems: Moderate: 2+ stable chronic illnesses Risk: Moderate: Drug management Medical Decision Making Level: 4 - Moderate Tariq Brooks APRN.CNP Allergies As of Date: 09/02/2023 Noted Allergy Reaction ERYTHROMYCIN 09/14/2022 6 - Diarrhea HAY FEVER (SEASONAL ALLERGIES) 08/13/2009 ZYRTEC (CETIRIZINE HCL) 08/06/2014 9 - Itching Date Reviewed: 09/02/2023 Reviewed by: Tariq Brooks APRN.PARTY BUS DRIVER - Fully Assessed Primary Visit Diagnosis:Overactive bladder [N32.81] Other Visit Diagnoses:Urinary frequency [R35.0] Dysuria [R30.0] Neurostimulator device in situ [Z96.82] Order(s):URINE CULTURE [SQURCUL] Order #: [id number]. #:[id number] sulfamethoxazole-trime thoprim (BACTRIM DS) 800-160 mg per tabletTake 1 tablet by mouth two times a day for 3 days.Disp: 6 tabletRfl: 0 UA DIP, URINE (POC) [[id number]] Order #: [id number]. #:[id number] Prescriptions as of 09/02/2023 - sulfamethoxazole-trime thoprim (BACTRIM DS) 8 (more content not included)... Normal [facility] UA DIP, URINE (POC)on 2023 BILIRUBIN UA (POCT) Negative Negative [facility] CLARITY UA (POCT) Clear [facility] COLOR UA (POCT) Yellow [facility] GLUCOSE UA (POCT) Negative Negative mg/dL [facility] Hemoglobin Ql (U) Moderate Abnormal Negative [facility] KETONE UA (POCT) Negative Negative mg/dL [facility] LEUKOCYTES UA (POCT) Large Abnormal Negative [facility] NITRITE UA (POCT) Negative Negative [facility] PH UA (POCT) 6.0 4.5 - 8.0 [facility] Protein Ql (U) 100 mg/dL Abnormal Negative mg/dL [facility] SPECIFIC GRAVITY UA (POCT) 1.020 1.005 - 1.030 [facility] UROBILINOGEN UA (POCT) 0.2 E.U./dL Normal E.U./dL [facility] CNCOon 08-19-2023 CNCO HNO ID: [id number] Author: COORDINATOR, MAMMOGRAPHY, ? Service: ? Author Type: Physician Type: Letter Filed: 08/19/2023 17:59 Note Text: August 20, 2023 PID: [id number] Asia Hawley [address] [place] [address] Dear Ms. Hawley, We are pleased to inform you that the results of your recent breast imaging exam on 08/18/2023 are normal. Early detection of cancer is very important. We also understand recommendations regarding breast cancer screening are controversial. Please discuss with your primary care provider which strategy is best for you and whether a mammogram is right for you. Your imaging studies and report will be kept on file at [facility] as part of your permanent medical record and are available for your continuing care. Thank you for allowing us to help in meeting your health care needs. Sincerely, Dr. Romero Interpreting Radiologist [facility] (Normal over 40) Normal [facility] DBT Breast - bilateral scree ningon 08-18-2023 [facility] CHYNA SCREENING W TOMOon 08-17 [facility] SCREENING W KOBE * * *Final Report* * * DATE OF EXAM: Aug 18 2023 9:38AM [id number] - [facility] SCREENING W KOBE / PROCEDURE REASON: Encounter for screening mammogram for malignant neoplasm of breast * * * * Physician Interpretation * * * * RESULT: #[id number] - [facility] SCREENING W KOBE BILATERAL DIGITAL SCREENING MAMMOGRAM TOMOSYNTHESIS WITH CAD: 08/18/2023 HISTORY: Encounter For Screening Mammogram For Malignant Neoplasm Of Breast /Screening Mammogram with KOBE - patient reports NO breast symptoms /priors available for comparison. RESULT: TECHNIQUE: The study was acquired using full field digital technology and interpreted from soft copy. Digital Breast Tomosynthesis (DBT) images were obtained and used to assist in the interpretation of this examination. Current study was also evaluated with a Computer Aided Detection (CAD). Comparison is made to exams dated: 07/23/2022 mammogram, 06/26/2021 mammogram, 06/24/2020 mammogram - [facility], and 2019 mammogram - [facility]. The breasts are almost entirely fatty. No significant masses, calcifications, or other findings are seen in either breast. There has been no significant interval change. IMPRESSION: NEGATIVE There is no mammographic evidence of malignancy. A 1 year screening mammogram is recommended. Jason Romero M.D., lm/kaushal:08/19/2023 17:59:20 Suspect Artist(s): RT Reymundo(R)(M), [facility] letter sent: Normal over 40 Mammogram BI-RADS: 1 Negative Multiple national specialty organizations have released breast cancer screening guidelines for women at average risk for developing breast cancer - guidelines that are based on both evidence and opinion, yet differ on when to start and how often to screen for breast cancer. With representation from Breast Imaging, Internal Medicine, Women's Health, Family Medicine, and Medical/Surgical Oncology, the [facility] has carefully reviewed the data and reached the following consensus: 1) All women should engage in shared decision-making with their providers to decide when to start and how often to screen; 2) All women should have the opportunity to start screening mammography at age 40; 3) For women ages 45-55, we recommend annual screening mammograms; 4) For women ages 55 and over, we support both the transition from an annual to a biennial interval if this aligns more with patient's values and preferences, or continuation with annual screening; 5) All women should discuss with their providers when to stop screening mammograms. Oim Consultant: Kaushal Transcribe Date/Time: Aug 18 2023 9:20A Dictated by: JASON ROMERO MD This examination was interpreted and the report reviewed and electronically signed by: JASON ROMERO MD on Aug 19 2023 5:59PM EST [id number] Normal [facility] CNPGala 08-06-2023 CNPN Telephone (OBGYWM) ASIA HAWLEY ([id number]) 1960 F Date Time Provider Department 08/06/23 MURIEL LOPEZ During your visit today, we recorded the following information about you: Jacqueline Bishop 08/06/2023 4:01 PM Signed Patient scheduled mammogram screening with available order. Patient previously had mammogram screening with KOBE. Please resubmit the appropriate order if necessary. Tess Persaud MA 08/06/2023 4:36 PM Signed Pended orders. Previous order was ordered by DENTAL MOLD MAKER. Tess Persaud Ma, Priyanka Smith MD 08/09/2023 12:14 PM Signed Order filed Priyanka Smith MD Allergies As of Date: 08/06/2023 Noted Allergy Reaction environmental [Other] 12/28/2006 Comments: ? what=congestion ERYTHROMYCIN 09/14/2022 6 - Diarrhea HAY FEVER (SEASONAL ALLERGIES) 08/13/2009 ZYRTEC (CETIRIZINE HCL) 08/06/2014 9 - Itching Date Reviewed: 06/22/2023 Reviewed by: Tess Persaud MA - Fully Assessed Reason for Visit: Orders [681] Cmt: Mammogram Primary Visit Diagnosis:Encounter for screening mammogram for malignant neoplasm of breast [Z12.31] Order(s):CHYNA SCREENING W KOBE [[id number]] Order #: [id number] FUTURE Prescriptions as of 08/28/2023 - metoclopramide HCl (REGLAN) 5 mg tablet Take 1 tablet by mouth three times a day. - predniSONE (DELTASONE) 5 mg tablet Take 1 tablet by mouth once daily. - levothyroxine (SYNTHROID) 100 mcg tablet Take 1 tablet by mouth once daily. Take on empty stomach - mycophenolate Mofetil (CELLCEPT) 500 mg tablet Take 2 in am and one in pm - calcium carbonate 600 mg-cholecalciferol 400 units 600 mg-10 mcg (400 unit) tab Take 1 tablet by mouth two times a day. - aspirin, enteric coated (ASPIRIN, ENTERIC COATED) 81 mg EC tablet Take 81 mg by mouth once daily. - multivit-min/iron/foli c acid/K (MULTI-DAY PLUS MINERALS ORAL) Take 1 capsule by mouth once daily. - L.acidophilus-L.rhamno adiel (PROBIOTIC) 15 billion cell capsule Take 1 capsule by mouth once daily. - estradiol (ESTRACE) 0.01 % (0.1 mg/gram) vaginal cream Use 1 g vaginally two times a week. Meds Comments as of 06/22/2023: OTC Prevagen. Problem List As Of Date 08/06/2023 Noted Resolved Acquired hypothyroidism [E03.9] Abnormal Papanicolaou Smear of Vagina and Vagin* 02/06/2010 Dyspareunia [WVO5399] 05/03/2006 02/06/2010 Fx Sacrum/Coccyx-Closed [S32.10XA, S32.2XXA] 05/31/2007 02/06/2010 Fx Dorsal Vertebra-Closed [S22.009A] 11/19/2008 02/06/2010 Diverticulosis [K57.90] 02/06/2010 07/08/2018 Calcaneal spur [M77.30] 06/03/2010 10/01/2017 Hives [L50.9] 10/01/2017 Chronic urticaria [L50.8] 03/03/2012 10/01/2017 Open wound(s) (multiple) of unspecified site(s)*06/02/2012 10/01/2017 Primary osteoarthritis of first carpometacarpal*201707/08/2018 Obesity, Class I, BMI 30-34.9 E66.9 [E66.9] 09/03/2017 07/08/2018 GERD (gastroesophageal reflux disease) [K21.9] 10/01/2017 07/08/2018 Hyponatremia [E87.1] 06/14/2018 Generalized weakness [R53.1] 06/14/2018 06/19/2018 Numbness of tongue [R20.0] 06/14/2018 Severe protein-calorie malnutrition (HCC) [E43] 06/15/2018 06/22/2023 Orthostatic hypotension [I95.1] 06/18/2018 Hypovolemia [E86.1] 07/08/2018 07/09/2018 SIADH (syndrome of inappropriate ADH production*07/08/2018 06/22/2023 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] 07/17/2018 07/17/2018 Post-menopausal bleeding [N95.0] 11/25/2018 Cervical stenosis (uterine cervix) [N88.2] 11/25/2018 Endometrial polyp [N84.0] 11/25/2018 Dizziness [R42] 01/13/2019 Weight loss, non-intentional [R63.4] 02/12/2020 Thymoma, 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] 02/12/2020 06/22/2023 Lung nodules [R91.8] 02/12/2020 ILD (interstitial lung disease) (HCC) [J84.9] 03/25/2020 Discharge planning issues [Z75.8] 03/25/2020 Pain, postoperative, acute [G89.18] 03/25/2020 Esophageal dysmotility [K22.4] 07/31/2020 NSIP (nonspecific interstitial pneumonitis) (HC*10/30/2022 Current chronic use of systemic steroids [Z79.5*10/30/2022 High risk medication use [Z79.899] 10/30/2022 Stage 3a chronic kidney disease (HCC) [N18.31] 01/12/2023 Obesity, Class I, BMI 30-34.9 [E66.9] 06/22/2023 Encounter Status:Closed by JACQUELINE BISHOP on 08/28/23 [facility] CNOVon 06-22-2023 CNOV Office Visit (FAMPWS ) ASIA HAWLEY ([id number]) 1960 F Date Time Provider Department 06/22/23 9:20 AM PRIYANKA SMITH FAMPWS During your visit today, we recorded the following information about you: Pulse Respiration Blood pressure Weight 72/minute 18/minute 118/78 93.6 kg Height 1.651 m Priyanka Smith MD 06/22/2023 9:46 AM Signed Asia Hawley is a 63 year old female here for a Medicare wellness visit. Medicare Health Risk Assessment General Health Good Exercise: Minutes/Day 0 min Exercise: Days/Week 0 days Alcohol: Daily Use Monthly or less Alcohol: Drinks/Day Patient does not drink Alcohol: 6 or more drinks Never Feel off balance No Concerns: Teeth/Dentures Yes (has couple chipped teeth) Concerns: Sexual function No Troubled by feelings None of the above Frequency: Eating healthy diet Several days ADLs requiring help None of the above Safety precautions in home/vehicle Yes Smoke, vape, chews tobacco No Difficulty hearing No Difficulty seeing No Current Providers Specialists: I have reviewed specialist-related care of the patient in the medical record. Current care team: Patient Care Team: Priyanka Smith MD as PCP - General (Family Medicine) Dr. Temple - Pulmonary Dr. Mg/Tariq Brooks - DENTAL MOLD MAKER Dr. Yang - Urology Medical/Family history review Reviewed and updated problem list, medical/surgical/famil y/social history, medications, and allergies. Opioid use review Opioid Medications (last 90 days) Some values may be hidden. Unless noted otherwise, only the newest values recorded on each date are displayed. Opioid Medications No data to display. Depression screening Depression Screening PHQ-2 Score PHQ-9 Score YOVANY-2 Total Score 06/22/2022 0 - - Depression screening tool completed and reviewed. Based on score and interview, patient is not at risk for depression. Screening tool discussed with patient, and I recommended no further intervention at this time. Cognitive screening Mini Cog Score: 5 Cognitive screening reviewed and no further action needed (score 3-5) Functional Observation Was the patient's Timed Up AND Go test unsteady or ? 12 seconds? No Advance Care Planning Patient did not wish or was not able to name a surrogate decision maker or provide an advance care plan Pt does not have Advanced Directives/Living Will Measurements BP 118/78 Pulse 72 Resp 18 Ht 5' 5 (1.65m) Wt 206 lb 6.4 oz (93.6kg) LMP 01/07/2011 BMI 34.35 kg/(m2). Additional screenings: Vision Screening Right eye - Without correction: With correction: 20/25 Left eye - Without correction: With correction: 20/25 Both eyes - Without correction: With correction: 20/25 Comments: Color normal Assessment/Plan Medicare annual wellness visit, initial (Z00.00) - Counseled on healthy diet and regular exercise - Fall avoidance information provided - Personalized prevention plan provided Follow up in 1 year Priyanka Smith MD 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 Patient presents with: Medicare Wellness Exam HPI Asia Hawley is a 63 year old female who presents here today for 6 month follow up, in addition to Medicare Wellness. Thyroid: Taking Synthroid 100 mcg daily. Doing well on this dosage. Hx of low sodium/potassium, monitored through routine labs. Elevated BUN and Creatinine on previous labs, continue monitoring. Glucose - Elevated glucose, currently on no medications. Does watch diet, does eat home cooked meals, no processed foods. Drinks a lot of water, no pop. Denies much exercise in her diet. Pulmonary - Follows with Dr. Temple. Hx of ILD/NSIP. On current regimen of Cellcept 500 mg bid, Reglan 5 mg and Prednisone 5 mg once daily. Does CT scan of lungs yearly for monitoring. Past medical history, appointments, medications, allergies reviewed. 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 GERD (gastroesophageal reflux disease) 10/01/2017 Hives Intramural leiomyoma of uterus Malnutrition of moderate degree (HCC) 06/15/2018 Obesity, Class I, BMI 30-34.9 E66.9 09/03/2017 Osteopenia Overactive bladder Primary osteoarthritis of first carpometacarpal joint of right hand 08/05/2017 Added automatically from request for surgery [id number] Rectal bleed 09/05/2014 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, 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 Unspecified hypothyroidism Previous Surgical History PAST SURGICAL HISTORY Procedure Laterality Date ARTHRP INTERPOS INTERCARPAL/METACARPAL JOINTS Right 10/13/2017 Right thumb CMC arthroplasty with LRTI CAUTERY CERVIX CRYOCAUTERY INITIAL/REPEAT 1999 CHOLECYSTECTOMY Cholecystectomy (more content not included)... Normal [facility] Basic metabolic 2000 panelon 06-11-2023 Anion gap [Moles/Vol] 10 mmol/L Normal 9-18 [facility] Comment on above: Order Comment: Speci men Type: BLOOD SPECIMENOrdering Facility: [facility] Address: [address] [place] [address] Performed By: #### 3 016-3, 93895-9 ####[facility] LABCLIA [id number] [place] [address] [place] Calcium [Mass/Vol] 10.1 mg/dL Normal 8.5-10.2 [facility] Comment on above: Order Comment: Speci men Type: BLOOD SPECIMENOrdering Facility: [facility] Address: [address] [place] [address] Performed By: #### 3 016-3, 76520-8 ####[facility] LABCLIA [id number] [place] [address] [place] Chloride [Moles/Vol] 104 mmol/L Normal 97-105 [facility] Comment on above: Order Comment: Speci men Type: BLOOD SPECIMENOrdering Facility: [facility] Address: [address] [place] [address] Performed By: #### 3 016-3, 36539-6 ####[facility] LABCLIA [id number] [place] [address] [place] CO2 [Moles/Vol] 25 mmol/L Normal 22-30 [facility] Comment on above: Order Comment: Speci men Type: BLOOD SPECIMENOrdering Facility: [facility] Address: [address] [place] [address] Performed By: #### 3 016-3, 08709-3 ####[facility] LABCLIA [id number] [place] [address] [place] Creatinine [Mass/Vol] 1.23 mg/dL High 0.58-0.96 [facility] Comment on above: Order Comment: Speci men Type: BLOOD SPECIMENOrdering Facility: [facility] Address: [address] [place] [address] Performed By: #### 3 016-3, 19177-1 ####[facility] LABIA [id number] [place] [address] [place] Creatinine and Glomerular filtration rate.predicted panel (S/P/Bld) 49 mL/min/1.73m??? Low >=60 [facility] Comment on above: Order Comment: Melinda diamond Type: BLOOD SPECIMENOrdering Facility: [facility] Address: [address] [place] [address] Result Comment: Hyun mated Glomerular Filtration Rate (eGFR) is calculated using the 2020 CKD-EPI creatinine equation. This equation utilizes serum creatinine, sex, and age as parameters. The creatinine assay has traceable calibration to isotope dilution-mass spectrometry. Refer to KDIGO guidelines for clinical interpretation. In patients with unstable renal function, e.g. those with acute kidney injury, the eGFR may not accurately reflect actual GFR. Performed By: #### 3 016-3, 50915-1 ####[facility] LABIA [id number] [place] [address] [place] Glucose [Mass/Vol] 117 mg/dL High 74-99 [facility] Comment on above: Order Comment: Mleinda diamond Type: BLOOD SPECIMENOrdering Facility: [facility] Address: [address] [place] [address] Result Comment: The [place] Diabetes Association (ADA) provides guidance for cutoff values for fasting glucose and random glucose. The ADA defines fasting as no caloric intake for at least 8 hours. Fasting plasma glucose results between 100 to 125 [...] Standards of Medical Care in Diabetes 2016, [place] [employer]. Diabetes Care. 2016.39(Suppl 1). Performed By: #### 3 016-3, 77056-0 ####[facility] LABCLIA [id number] [place] [address] [place] Potassium [Moles/Vol] 5.1 mmol/L Normal 3.7-5.1 [facility] Comment on above: Order Comment: Speci men Type: BLOOD SPECIMENOrdering Facility: [facility] Address: [address] [place] [address] Performed By: #### 3 016-3, 83281-8 ####[facility] LABCLIA [id number] [place] [address] [place] Sodium [Moles/Vol] 139 mmol/L Normal 136-144 [facility] Comment on above: Order Comment: Speci men Type: BLOOD SPECIMENOrdering Facility: [facility] Address: [address] [place] [address] Performed By: #### 3 016-3, 90662-4 ####[facility] LABIA [id number] [place] [address] [place] Urea nitrogen [Mass/Vol] 29 mg/dL High 7-21 [facility] Comment on above: Order Comment: Speci men Type: BLOOD SPECIMENOrdering Facility: [facility] Address: [address] [place] [address] Performed By: #### 3 016-3, 68206-3 ####[facility] LABCLIA [id number] [place] [address] [place] TSH SerPl-aCncon 06-11-2023 TSH Qn 1.600 m[IU]/L Normal 0.270-4.200 [facility] Comment on above: Order Comment: Speci men Type: BLOOD SPECIMENOrdering Facility: [facility] Address: [address] [place] [address] Performed By: #### 3 016-3, 86419-3 ####[facility] LABIA [id number] [place] [address] [place] CBC panel Auto (Bld)on 05-08 Erythrocyte distribution width (RBC) [Ratio] 13.7 % Normal 11.5-15.0 [facility] Comment on above: Order Comment: Speci men Type: BLOOD SPECIMENOrdering Facility: [facility] Address: [address] [place] [address] Performed By: #### 5 8410-2 ####[facility] LABCLIA [id number] [address] [place] Hematocrit (Bld) [Volume fraction] 44.8 % Normal 36.0-46.0 [facility] Comment on above: Order Comment: Speci men Type: BLOOD SPECIMENOrdering Facility: [facility] Address: [address] [place] [address] Performed By: #### 5 8410-2 ####[facility] LABCLIA [id number] [address] [place] Hemoglobin (Bld) [Mass/Vol] 14.0 g/dL Normal 11.5-15.5 [facility] Comment on above: Order Comment: Speci men Type: BLOOD SPECIMENOrdering Facility: [facility] Address: [address] [place] [address] Performed By: #### 5 8410-2 ####[facility] LABIA [id number] [place] [address] [place] MCH (RBC) [Entitic mass] 27.2 pg Normal 26.0-34.0 [facility] Comment on above: Order Comment: Speci men Type: BLOOD SPECIMENOrdering Facility: [facility] Address: [address] [place] [address] Performed By: #### 5 8410-2 ####[facility] LABCLIA [id number] [place] [address] [place] MCHC (RBC) [Mass/Vol] 31.3 g/dL Normal 30.5-36.0 [facility] Comment on above: Order Comment: Speci men Type: BLOOD SPECIMENOrdering Facility: [facility] Address: [address] [place] [address] Performed By: #### 5 8410-2 ####[facility] [id number] [place] [address] [place] MCV (RBC) [Entitic vol] 87.0 fL Normal 80.0-100.0 [facility] Comment on above: Order Comment: Speci men Type: BLOOD SPECIMENOrdering Facility: [facility] Address: [address] [place] [address] Performed By: #### 5 8410-2 ####[facility] [id number] [place] [address] [place] Nucleated RBC (Bld) [#/Vol] 10*3/uL Normal <0.01 [facility] Comment on above: Order Comment: Speci men Type: BLOOD SPECIMENOrdering Facility: [facility] Address: [address] [place] [address] Performed By: #### 5 8410-2 ####[facility] [id number] [place] [address] [place] Platelet mean volume (Bld) [Entitic vol] 10.5 fL Normal 9.0-12.7 [facility] Comment on above: Order Comment: Speci men Type: BLOOD SPECIMENOrdering Facility: [facility] Address: [address] [place] [address] Performed By: #### 5 8410-2 ####[facility] LABIA [id number] [place] [address] [place] Platelets (Bld) [#/Vol] 317 10*3/uL Normal 150-400 [facility] Comment on above: Order Comment: Speci men Type: BLOOD SPECIMENOrdering Facility: [facility] Address: [address] [place] [address] Performed By: #### 5 8410-2 ####[facility] LABCLIA [id number] [address] [address] [place] RBC (Bld) [#/Vol] 5.15 10*6/uL Normal 3.90-5.20 [facility] Comment on above: Order Comment: Speci men Type: BLOOD SPECIMENOrdering Facility: [facility] Address: [address] [place] [address] Performed By: #### 5 8410-2 ####[facility] LABIA [id number] [place] [address] [place] WBC (Bld) [#/Vol] 11.50 10*3/uL High 3.70-11.00 [facility] Comment on above: Order Comment: Speci men Type: BLOOD SPECIMENOrdering Facility: [facility] Address: [address] [place] [address] Performed By: #### 5 8410-2 ####[facility] LABIA [id number] [place] [address] [place] Comprehensive metabolic 2000 panelon 05-08-2023 Albumin [Mass/Vol] 4.2 g/dL Normal 3.9-4.9 [facility] Comment on above: Order Comment: Speci men Type: BLOOD SPECIMENOrdering Facility: [facility] Address: [address] [place] [address] Performed By: #### 2 4323-8 ####[facility] LABIA [id number] [place] [address] [place] ALP [Catalytic activity/Vol] 88 U/L Normal 34-123 [facility] Comment on above: Order Comment: Speci men Type: BLOOD SPECIMENOrdering Facility: [facility] Address: [address] [place] [address] Performed By: #### 2 4323-8 ####[facility] LABIA [id number] [id number] [address] [place] ALT [Catalytic activity/Vol] 14 U/L Normal 7-38 [facility] Comment on above: Order Comment: Speci men Type: BLOOD SPECIMENOrdering Facility: [facility] Address: [address] [place] [address] Performed By: #### 2 4323-8 ####[facility] LABCLIA [id number] [place] [address] [place] Anion gap [Moles/Vol] 11 mmol/L Normal 9-18 [facility] Comment on above: Order Comment: Speci men Type: BLOOD SPECIMENOrdering Facility: [facility] Address: [address] [place] [address] Performed By: #### 2 4323-8 ####[facility] LABCLIA [id number] [place] [address] [place] AST [Catalytic activity/Vol] 23 U/L Normal 13-35 [facility] Comment on above: Order Comment: Speci men Type: BLOOD SPECIMENOrdering Facility: [facility] Address: [address] [place] [address] Performed By: #### 2 4323-8 ####[facility] LABCLIA [id number] [place] [address] [place] Bilirubin [Mass/Vol] 0.5 mg/dL Normal 0.2-1.3 [facility] Comment on above: Order Comment: Speci men Type: BLOOD SPECIMENOrdering Facility: [facility] Address: [address] [place] [address] Performed By: #### 2 4323-8 ####[facility] LABCLIA [id number] [place] [address] [place] Calcium [Mass/Vol] 10.0 mg/dL Normal 8.5-10.2 [facility] Comment on above: Order Comment: Speci men Type: BLOOD SPECIMENOrdering Facility: [facility] Address: [address] [place] [address] Performed By: #### 2 4323-8 ####[facility] LABCLIA [id number] [place] [address] [place] Chloride [Moles/Vol] 102 mmol/L Normal 97-105 [facility] Comment on above: Order Comment: Speci men Type: BLOOD SPECIMENOrdering Facility: [facility] Address: [address] [place] [address] Performed By: #### 2 4323-8 ####[facility] LABCLIA [id number] [place] [address] [place] CO2 [Moles/Vol] 25 mmol/L Normal 22-30 [facility] Comment on above: Order Comment: Speci men Type: BLOOD SPECIMENOrdering Facility: [facility] Address: [address] [place] [address] Performed By: #### 2 4323-8 ####[facility] LABCLIA [id number] [place] [address] [place] Creatinine [Mass/Vol] 1.33 mg/dL High 0.58-0.96 [facility] Comment on above: Order Comment: Speci men Type: BLOOD SPECIMENOrdering Facility: [facility] Address: [address] [place] [address] Performed By: #### 2 4323-8 ####[facility] LABIA [id number] [place] [address] [place] Creatinine and Glomerular filtration rate.predicted panel (S/P/Bld) 44 mL/min/1.73m??? Low >=60 [facility] Comment on above: Order Comment: Speci men Type: BLOOD SPECIMENOrdering Facility: [facility] Address: [address] [place] [address] Result Comment: Hyun mated Glomerular Filtration Rate (eGFR) is calculated using the 2020 CKD-EPI creatinine equation. This equation utilizes serum creatinine, sex, and age as parameters. The creatinine assay has traceable calibration to isotope dilution-mass spectrometry. Refer to KDIGO guidelines for clinical interpretation. In patients with unstable renal function, e.g. those with acute kidney injury, the eGFR may not accurately reflect actual GFR. Performed By: #### 2 4323-8 ####[facility] [id number] [place] [address] [place] Glucose [Mass/Vol] 84 mg/dL Normal 74-99 [facility] Comment on above: Order Comment: Melinda diamond Type: BLOOD SPECIMENOrdering Facility: [facility] Address: [address] [place] [address] Result Comment: The [place] Diabetes Association (ADA) provides guidance for cutoff values for fasting glucose and random glucose. The ADA defines fasting as no caloric intake for at least 8 hours. Fasting plasma glucose results between 100 to 125 [...] Standards of Medical Care in Diabetes 2016, [place] [employer] Association. Diabetes Care. 2016.39(Suppl 1). Performed By: #### 2 4323-8 ####[facility] [id number] [place] [address] [place] Potassium [Moles/Vol] 4.0 mmol/L Normal 3.7-5.1 [facility] Comment on above: Order Comment: Melinda diamond Type: BLOOD SPECIMENOrdering Facility: [facility] Address: [address] [place] [address] Performed By: #### 2 4323-8 ####[facility] [id number] [place] [address] [place] Protein [Mass/Vol] 7.4 g/dL Normal 6.3-8.0 [facility] Comment on above: Order Comment: Melinda diamond Type: BLOOD SPECIMENOrdering Facility: [facility] Address: [address] [place] [address] Performed By: #### 2 4323-8 ####[facility] LABCLIA [id number] [place] [address] [place] Sodium [Moles/Vol] 138 mmol/L Normal 136-144 [facility] Comment on above: Order Comment: Speci men Type: BLOOD SPECIMENOrdering Facility: [facility] Address: [address] [place] [address] Performed By: #### 2 4323-8 ####[facility] LABCLIA [id number] [place] [address] [place] Urea nitrogen [Mass/Vol] 29 mg/dL High 7-21 [facility] Comment on above: Order Comment: Speci men Type: BLOOD SPECIMENOrdering Facility: [facility] Address: [address] [facility] [place] [address] Performed By: #### 2 4323-8 ####[facility] LABCLIA [id number] [place] [address] [place] UA DIP, URINE (POC)on 2022 BILIRUBIN UA (POCT) Negative Negative [facility] CLARITY UA (POCT) Clear [facility] COLOR UA (POCT) Yellow [facility] GLUCOSE UA (POCT) Negative Negative mg/dL [facility] Hemoglobin Ql (U) Small Abnormal Negative [facility] KETONE UA (POCT) Negative Negative mg/dL [facility] LEUKOCYTES UA (POCT) Small Abnormal Negative [facility] NITRITE UA (POCT) Negative Negative [facility] PH UA (POCT) 7.0 4.5 - 8.0 [facility] Protein Ql (U) 100 mg/dL Abnormal Negative mg/dL [facility] SPECIFIC GRAVITY UA (POCT) 1.025 1.005 - 1.030 [facility] UROBILINOGEN UA (POCT) 1.0 E.U./dL Normal E.U./dL [facility] ANES POSTPROC EVALon 023 ANES POSTPROC EVAL HNO ID: [id number] Author: Jemal Meza MD Service: Anesthesiology Author Type: Anesthesiologist Type: Anesthesia Postprocedure Evaluation Filed: 01/28/2023 9:59 AM Note Text: POST ANESTHESIA EVALUATION NOTE : 1960 Procedure Summary Date: 01/28/23 Room / Location: [place] [address] / [place] Anesthesia Start: 0737 Anesthesia Stop: 909 Procedures: INSERTION STIMULATOR GENERATOR BLADDER (Bilateral: Back) IMPLANT STIMULATOR LEAD(S) BLADDER INCISIONAL APPROACH (Bilateral: Back) FLUOROSCOPIC GUIDANCE/LOCALIZATION OF NEEDLE/CATHETER TIP FOR DIAG OR THERAPUETIC SPINE/PARASPINOUS INJECTION PROCEDURES (Bilateral: Back) Diagnosis: Urinary frequency OAB (overactive bladder) Nocturia Preop examination (Urinary frequency [R35.0]) (OAB (overactive bladder) [N32.81]) (Nocturia [R35.1]) (Preop examination [Z01.818]) Surgeons: John Mg MD Responsible Provider: Jemal Meza MD Anesthesia Type: MAC ASA Status: 3 Anesthesia Type: MAC Last Vitals Vitals Value Taken Time BP 140/79 01/28/23 0930 Temp 37.3 ?C (99.1 ?F) 01/28/23 0908 HR SpO2 79 01/28/23 0908 Resp 12 01/28/23 0938 SpO2 97 % 01/28/23 0938 Vitals shown include unvalidated device data. Post Anesthesia Patient Status Patient Evaluation: bedside. Anticipated Disposition: phase 2 then home. Neurological Status: aware and responsive. Pulmonary Status: breathing comfortably on room air Airway Control: returned to baseline unsupported. Cardiovascular Status: stable. Pain Management: clinically adequate Postoperative Hydration: acceptable. Intraoperative Events: no significant anesthesia events Post Operative Nausea/Vomiting Status: no significant post operative nausea or vomiting Recommendation: continue current plan of care. Anesthesia Observations No Documentation SIGNATURE: Jemal Meza MD PATIENT NAME: Asia Hawley DATE: January 28, 2023 TIME: 9:59 AM CSN: [id number] [facility] ANES PRE-OPon 01-28-2023 ANES PRE-OP HNO ID: [id number] Author: Jemal Meza MD Service: Anesthesiology Author Type: Anesthesiologist Type: Anesthesia Preprocedure Evaluation Filed: 01/28/2023 7:05 AM Note Text: ANESTHESIOLOGY DAY OF SURGERY NOTE : 1960 Procedure Information Date/Time: 01/28/23 0730 Procedures: INSERTION STIMULATOR GENERATOR BLADDER (Bilateral: Back) IMPLANT STIMULATOR LEAD(S) BLADDER INCISIONAL APPROACH (Bilateral: Back) FLUOROSCOPIC GUIDANCE/LOCALIZATION OF NEEDLE/CATHETER TIP FOR DIAG OR THERAPUETIC SPINE/PARASPINOUS INJECTION PROCEDURES (Bilateral: Back) Location: [place] / [place] Surgeons: John Mg MD Estimated body mass index is 34.87 kg/m? as calculated from the following: Height as of 01/12/23: 161.3 cm (5' 3.5 ). Weight as of 01/12/23: 90.7 kg (200 lb). Most recent hematocrit and potassium results: Hematocrit 41.4 11/02/2022 Potassium 3.8 11/02/2022 Relevant Problems ENDO (+) Acquired hypothyroidism -RENAL (+) Stage 3a chronic kidney disease (HCC) PULMONARY (+) NSIP (nonspecific interstitial pneumonitis) (HCC) Other (+) Thymoma, malignant (HCC) I - PHYSICAL EVALUATION AIRWAY Patient intubated: No. Tracheostomy tube not present Mallampati: III. TM distance: >3 FB. Neck ROM: full ROM without neurological symptoms. Mouth opening: adequate. Short neck: no. Thick neck: no DENTAL Normal dental observations. Dental findings: teeth intact. Additional exam findings: no II - ANESTHESIA PLAN ASA Score: 3 Anesthetic Plan: MAC The patient is not a current smoker. NPO Status: adequate Beta Ana Monitoring Plan Monitoring plan: standard ASA. Post Procedure Analgesic Plan Postoperative analgesic plan: parenteral or oral opioids and multimodal analgesia. Informed Consent Anesthetic risks, benefits, alternatives, personnel and consent discussed: yes. Patient / Responsible Constitution Party agrees to proceed: yes Patient / Surrogate agrees to blood products: blood products not planned DNR status not reviewed with patient and/or family prior to surgery. Significant changes in the patient condition since the History and Physical, not otherwise documented in primary service progress note: no. Potential Anesthesia issues that may suggest increased risk of complications or contraindication to planned procedure: none. Discussed the possibility of lip / dental damage: yes Vitals Value Taken Time BP 123/66 09/14/23 0626 Pulse Resp 16 01/28/23625 Temp 36.6 ?C (97.9 ?F) 01/28/23625 SpO2 97 % 01/28/23625 Facility-Administered Medications as of 01/28/2023 Medication Dose Route Frequency - [COMPLETED] acetaminophen 1,000 mg tab(s) (TYLENOL) 1,000 mg ORAL Pre-Op Once - hydrocortisone sodium succinate (PF) 100 mg injection (Solu-CORTEF) 100 mg INTRAVENOUS ONCE - [COMPLETED] promethazine 12.5 mg tab(s) (PHENERGAN) 12.5 mg ORAL Pre-Op Once - scopolamine 1 mg over 3 days 1 Patch (TRANSDERM-SCOP) 1 Patch TRANSDERMAL q 72 HR And - [START ON 01/30/2023] scopolamine - REMOVE PATCH OTHER q 72 HR And - scopolamine - VERIFY patch OTHER q 8 H - [COMPLETED] celecoxib 200 mg cap(s) (CeleBREX) 200 mg ORAL Pre-Op Once - [COMPLETED] gabapentin 300 mg cap(s) (NEURONTIN) 300 mg ORAL Pre-Op Once - vancomycin iv piggyback 1 g in D5W 200 mL (VANCOCIN) 1 g INTRAVENOUS Pre-Op Once - gentamicin 135 mg in D5W 100 mL 1.5 mg/kg/dose (Order-Specific) INTRAVENOUS Pre-Op Once - lidocaine (PF) 10 mg/mL (1 %) 1-2 mg injection (XYLOCAINE) 0.1-0.2 mL INTRADERMAL PRN - lactated ringers iv infusion 5-30 mL/hr INTRAVENOUS CONTINUOUS - NaCl 0.9% iv flush bag 20 mL INTRAVENOUS PRN Outpatient Medications as of 01/28/2023 Medication Sig - calcium carbonate 600 mg-cholecalciferol 400 units 600 mg-10 mcg (400 unit) tab Take 1 tablet by mouth twice daily. - levothyroxine (SYNTHROID) 100 mcg tablet Take 1 tablet by mouth once daily. Take on empty stomach - mycophenolate Mofetil (CELLCEPT) 500 mg tablet Take 2 in am and one in pm - estradiol (ESTRACE) 0.01 % (0.1 mg/gram) vaginal cream Use 1 g vaginally two times a week. I have interviewed and examined the patient. I have reviewed the medical record and/or the pre-anesthesia evaluation, pertinent labs, and test results. This contains updated information obtained within 48 hours of Surgery/Procedure. SIGNATURE: Jemal Meza MD PATIENT NAME: Asia Hawley DATE: January 28, 2023 TIME: 7:05 AM CSN: [id number] [facility] OPERATIVE NOon 01-28-2023 OPERATIVE NO HNO ID: [id number] Author: John Mg MD Service: Urogynecology Author Type: Physician Type: Operative Report Filed: 01/30/2023 4:29 PM Note Text: OPERATIVE/PROCEDURE REPORT LOG ID: [id number] Surgery/Procedure Date: 01/28/2023 Incision/Procedure Start Time: 7:59 AM Incision Close/Procedure End Time: 9:00 AM Surgeon(s)/Procedurali st(s) and Hydrotreater Operator(s): Surgeon(s) and Role: * John Mg MD - Primary * Darin Schulz MD - Resident - Assisting * Claudette Rojo MD - Fellow * Wiley Benitez MD Registered Nurse Adjunct Professor Of Law: Betty García RN Procedure(s): 1. InterStim Peripheral Nerve Stimulation Stage 1- Incision and implantation of tined quadripolar lead electrodes into left S3 Foramen (66136) 2. Fluoroscopic guidance for needle placement (19432) 3. Implantation of InterStim II neurogenerator, electrical program analysis, initial programming less than 1 hour Anesthesia: Monitored Anesthesia Care Findings: Derrell at 2.1mA in 0, 1, 2,3 electrodes. Toe response at 2.1mA in 2,3 electrodes.Good placement of lead with strong responses. 1) left lead implanted at S3 2) left -sided implanted pulse generator Estimated Blood Loss: 5 mls Antibiotics: Vancomycin and Gentamicin prior to skin incision Specimens: None VTE Prophylaxis: SCDs for mechanical prophylaxis Complications: None Implanted Devices: Implant Name Type Inv. Item Serial No. It Security Consulting Director Lot No. LRB No. Used Action LEAD INTRSTIM MRI 28CM - [id number] Lead LEAD INTRSTIM MRI 28CM [employer] [id number] N/A 1 Implanted INTERSTIM X RECHARGE FREE NEUROSTIMULATOR - [id number] Stimulator INTERSTIM X RECHARGE FREE NEUROSTIMULATOR [id number] [employer] Left 1 Implanted Pre-Op/Pre-Procedure Diagnosis: Overactive Bladder, Nocturia, Urinary urge Incontinence Post-Op/Post-Procedure Diagnosis: same Drains: None Indications: This patient has a history of refractory Overactive Bladder, Urinary Urge Incontinence. This has been substantiated on voiding diaries preoperatively, and the patient has failed or not tolerated conservative management or medications. Despite this, significant bothersome symptoms persist. Accordingly, options were discussed with the patient and the decision was made to undergo InterStim neuromodulation. Percutaneous nerve stimulation placed in the office was successful, and she elected to proceed with implantation of permanent lead and pulse generator. The procedure, materials, personnel, indications, alternatives, risks, and benefits were described in great detail. MRI precautions were reviewed. Informed consent was obtained. Procedure Details: The patient was brought to the operative suite, properly identified utilizing two patient identifiers and placed in prone position per OR protocol. The safety checklist was performed. IV Vancomycin and gentamicin had already been administered. MAC anesthesia was administered. The patient was prepped and draped in usual sterile fashion. A timeout per protocol was then carried out. Using fluoroscopic localization, the approximate locations of the S2, S3 and S4 neural foramina were identified and marked. Local anesthesia was administered. The spinal needle was then passed and proper foramen needle position was confirmed bilaterally with fluoroscopy into S3. Direct observation of derrell and observation of plantar flexion of the great toe. The patient's left S3 neural foramen had the following response: MOTOR RESPONSE: Electrode 0 1 2 3 Anal Derrell + + + + Flexion of Great Toe - - + + Amplitude 2.1 2.1 2.1 2.1 A curved stylette was used to place the sacral lead. We placed approximately 2 contacts below the sacral plate. Local anesthesia was administered over the Left upper buttock incisional site. A 5-6cm incision was made and a pocket was developed to allow implantation of the IPG. The pocket was then expanded with blunt dissection ensuring that it was away from any bony prominences and that there was sufficient overlying subcutaneous tissue. Utilizing the tunneling device, we then tunneled the lead to the Left upper gluteal incision site. The InterStim II permanent pulse generator was then connected to the lead. After ensuring that all four lead sites were inserted into the generator, the set screw was tightened. The generator was then placed into the pocket and electrical programming analysis was performed. Less than 1 hour of complex programming was performed - pulse width, frequency, and amplitudes were programmed and impedances were evaluated. The incision was then closed with absorbable suture in three layers (2-0 vicryl for subcutaneous tissue, 3-0 vicryl deep dermal, and 4-0 Monocryl for subcuticular skin closure) and dressed with sterile skin glue. The patient was taken to the PACU in stable condition. All sponge, instrument, needle count were correct x 2. The pa (more content not included)... [facility] XR FLUOROSCOPYon 01-28-2023 XR FLUOROSCOPY * * *Final Report* * * DATE OF EXAM: Jan 28 2023 9:17AM MDR [id number] - XR FLUOROSCOPY / PROCEDURE REASON: bladder stimulator * * * * Physician Interpretation * * * * INDICATION: bladder stimulator TECHNIQUE: Fluoroscopy with 2 views of the sacrum Fluoroscopic Radiation Summary: Plane A, Air Kerma: 66.5 mGy Dose Area Product (DAP): 0.0 mGy*cm^2 Fluoro time: 1:13 min:sec FINDINGS/ IMPRESSION: AP and lateral views were obtained during placement of a bladder stimulator. Stimulator enters posteriorly to the left of midline. . Please refer to the performing LIP's report. Oim Consultant: PSCB Transcribe Date/Time: Jan 28 2023 10:20A Dictated by : ALLYSON BUTLER MD This examination was interpreted and the report reviewed and electronically signed by: ALLYSON BUTLER MD on Jan 28 2023 10:21AM EST [id number] [facility] HISTORY PHYSICALon 3 HISTORY PHYSICAL HNO ID: [id number] Author: Macrina Amaya PA-C Service: ? Author Type: Physician Hydrotreater Operator Type: HANDP Filed: 01/12/2023 11:08 AM Note Text: HISTORY AND PHYSICAL EXAMINATION SERVICE DATE: 01/12/2023 SERVICE TIME: 10:38 AM PRIMARY CARE PHYSICIAN: Priyanka Smith MD REASON FOR VISIT: Asia Hawley is a 62 year old female who is scheduled for Procedure(s): INSERTION STIMULATOR GENERATOR BLADDER (Bilateral) IMPLANT STIMULATOR LEAD(S) BLADDER INCISIONAL APPROACH (Bilateral) FLUOROSCOPIC GUIDANCE/LOCALIZATION OF NEEDLE/CATHETER TIP FOR DIAG OR THERAPUETIC SPINE/PARASPINOUS INJECTION PROCEDURES (Bilateral) at the request of John Burris MD for consultation. My final recommendation will be communicated back to the requesting physician by way of shared medical record or letter. 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) Post-Menopausal Bleeding Cervical Stenosis (Uterine Cervix) Endometrial Polyp Dizziness Weight Loss, Non-Intentional Thymoma, Malignant (Hcc) Lung Nodules Ild (Interstitial Lung Disease) (Hcc) Discharge Planning Issues Pain, Postoperative, Acute Esophageal Dysmotility Nsip (Nonspecific Interstitial Pneumonitis) (Hcc) Current Chronic Use of Systemic Steroids High Risk Medication Use Stage 3a Chronic Kidney Disease (Hcc) COVID-19 Immunization Status Overdue - COVID-19 VACCINE (5 - Aristides risk series) Overdue since 05/01/2022 03/06/2022 Imm Admin: COVID-19 vaccine, age 12+ yr, bivalent (WaveSyndicate-BIONTNanotecture) 12/22/2021 Imm Admin: COVID-19 original vaccine, age 12+ yr, monovalent (PFIZER-BIONTECH - TALBOT TOP) 04/07/2021 Imm Admin: COVID-19 original vaccine, age 12+ yr, monovalent (WaveSyndicate-BIONTECH - PURPLE TOP) Only the first 3 history entries have been loaded, but more history exists. CHIEF COMPLAINT: urinary frequency HPI: Asia Hawley is a 62 year old female presenting for pre-anesthesia consultation with her . Pt has history of OAB and urinary frequency since 2019. She has tried and failed tx with multiple medications. Denies dysuria or gross hematuria currently. Above procedure recommended to manage symptoms. Procedure scheduled on 01/28/2023 at [place]. REVIEW OF SYSTEMS: General: No weight loss, malaise or fevers. Neurological: No history of TIA's, stroke, ELECTRIC MELT OPERATOR tumor, impaired sensorium, hemiplegia, paraplegia or quadraplegia. No neurological symptoms or problems. Respiratory: +ILD/NSIP - s/p R VATS biopsy of upper, middle and lower lung for pulmonary infiltrates 03/2020, on Cellcept and prednisone 5 mg, follows with Dr. Temple, [facility] 10/30/22, normal PFT 11/2022 Negative for: current cough, tobacco use, URI < 2 weeks and obstructive sleep apnea. Cardiovascular: Positive for: DVT/PE (remote h/o RLE DVT - post-op after back surgery 2008) Negative for: arrhythmia, atrial fibrillation, CHF, hyperlipidemia, hypertension, recent HI and murmur/valvular heart disease. GI: +Esophageal dysmotility - on Reglan Negative for: GERD, heartburn, hepatitis, irritable bowel syndrome, inflammatory bowel disease, liver disease and ETOH >2 drinks/day. : See HPI. Positive for: renal failure. Patient's renal failure is chronic. Negative for: dysuria, hematuria and urinary tract infection. Endocrine: Positive for: hypothyroidism and steroid for chronic problem (prednisone 5 mg daily). Negative for: diabetes mellitus. Hematology: No history of bleeding or clotting disorder. Patient is not taking anti-coagulation or platelet medications. No history of hematological symptoms or problems. Oncology: +H/o thymoma - s/p excision 06/2018 Psych: No history of psychiatric symptoms or problems. Musculoskeletal: Negative for joint pain or swelling, back pain or muscle pain. Skin: Negative for lesions, rash and itching. 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 GERD (gastroesophageal reflux disease) 10/01/2017 Hives Intramural leiomyoma of uterus Malnutrition of moderate degree ([facility]) 06/15/2018 Obesity, Class I, BMI 30-34.9 E66.9 09/03/2017 Osteopenia Overactive bladder Primary osteoarthritis of first carpometacarpal joint of right hand 08/05/2017 Added automatically from request for surgery [id number] Rectal bleed 09/05/2014 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, 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 Unspecified hypothyroidism PAST SURGICAL HISTORY Procedure Laterality Date ARTHRP INTERPOS INTERCARPAL/METACARPAL JOINTS Right 10/13/2017 Right thumb CMC arthroplasty with LRTI CAUTERY CERVIX CRYOCAUTERY INITIAL/REPEA (more content not included)... Normal [facility] LUNG VOLUMESon 11-16-2022 [facility] SPIROMETRY BASELINE ONLYon 0 11-16-2022 DLCO (ml/min/mmHg) 17.31 ml/min/mmHg [facility] DLCO/VA (ml/min/mmHg/L) 3.99 ml/min/mmHg/L [facility] ERV BOX (L) 0.42 L [facility] IOG43-34% PRE (L/S) 3.85 L/S [facility] FEV1 PRE (L) 2.67 L [facility] FEV1/FVC PRE (%) 86 % [facility] FRC Box (L) 2.34 L [facility] FVC PRE (L) 3.10 L [facility] IC BOX (L) 2.66 L [facility] PEF PRE (L/S) 6.31 L/S [facility] RV Box (L) 1.79 L [facility] RV/TLC Box (%) 37 % [facility] TLC Box (L) 4.87 L [facility] VA (L) 4.33 L [facility] VC (L) BOX 3.13 [address] [facility] CT CHEST WO IVCONon 10-28-19 [facility] NM RENAL FLOW/FXN W PHARMon 10-15-2022 NM RENAL FLOW/FXN W PHARM * * *Final Report* * * DATE OF EXAM: Oct 15 2022 11:01AM YOSEPH 0035 - NM RENAL FLOW/FXN W PHARM / PROCEDURE REASON: Q62.11-Hydronephrosis with ureteropelvic junction (UPJ) obstruction * * * * Physician Interpretation * * * * EXAM: DIURETIC RENAL SCINTIGRAPHY HISTORY: Hydronephrosis with ureteropelvic junction (UPJ) obstruction. Concern for UPJ obstruction on recent CT. TECHNIQUE: 11.4 mCi Tc-99m MAG3 administered IV. Posterior dynamic imaging for 60 seconds followed by static posterior imaging of the kidneys and bladder for approximately 50 minutes. Imaging was segmental as patient needed to urinate multiple times throughout the exams. 40 mg of IV furosemide (Lasix) was administered approximately 38 minutes into the examination. Delayed postvoid images of the kidneys and bladder were also obtained. CORRELATION: CT urogram 06/09/2022 RESULT: Split Differential Function: - Left: 51.6% - Right: 48.4% Renal Function: Left Kidney: - Perfusion: Prompt and symmetric - Initial cortical uptake and transit: Within normal limits - Drainage: Prompt, spontaneous drainage prior to Lasix Right Kidney: - Perfusion: Prompt and symmetric - Initial cortical uptake and transit: Within normal limits - Drainage: Prompt, spontaneous drainage prior to Lasix with tracer some activity pooling in a dilated renal pelvis and minimal residual cortical activity - Post Lasix: Additional clearance with a T-1/2 of less than 10 minutes - Post void images: Mild residual tracer activity in the renal pelvis IMPRESSION: No findings of renal obstruction. Chronic right renal pelvis dilation. Split differential function, as described. Oim Consultant: JUAN Transcribe Date/Time: Oct 15 2022 11:17A Dictated by : JEMAL HANNA DO This examination was interpreted and the report reviewed and electronically signed by: JEMAL HANNA DO on Oct 15 2022 11:46AM EST [id number] Normal [facility] XR Abdomen Supine and Uprigh ton 08-13-2022 IMPRESSION: Findings as discussed under Results portion of report. Oim Consultant: JUAN Transcribe Date/Time: Aug 13 2022 11:10A Dictated by : KARLA BENAVIDEZ DO This examination was interpreted and the report reviewed and electronically signed by: KARLA BENAVIDEZ DO on Aug 13 2022 11:13AM EST [facility] * * *Final Report* * * DATE OF EXAM: Aug 11 2022 3:32PM TRAMAINE 5289 - XR ABDOMEN 1V SUPINE / PROCEDURE REASON: N20.0-Kidney stone * * * * Physician Interpretation * * * * Abdomen supine: HISTORY: Indication: Kidney stone TECHNIQUE: Views obtained: XR ABDOMEN 1V SUPINE Comparison: CT urogram 06/09/2022 RESULT: Findings: Large amount of fecal debris and bowel gas evaluation of the kidneys. No calcifications can be identified. No bony abnormalities are seen [facility] Provider, [facility] - 08/13/2022 * * *Final Report* * * DATE OF EXAM: Aug 11 2022 3:32PM TRAMAINE 5289 - XR ABDOMEN 1V SUPINE / PROCEDURE REASON: N20.0-Kidney stone * * * * Physician Interpretation * * * * Abdomen supine: HISTORY: Indication: Kidney stone TECHNIQUE: Views obtained: XR ABDOMEN 1V SUPINE Comparison: CT urogram 06/09/2022 RESULT: Findings: Large amount of fecal debris and bowel gas evaluation of the kidneys. No calcifications can be identified. No bony abnormalities are seen IMPRESSION IMPRESSION: Findings as discussed under Results portion of report. Oim Consultant: PSCB Transcribe Date/Time: Aug 13 2022 11:10A Dictated by : KARLA BENAVIDEZ DO This examination was interpreted and the report reviewed and electronically signed by: KARLA BENAVIDEZ DO on Aug 13 2022 11:13AM EST [facility] XR Abdomen Supine and Uprigh tOrdered By: [facility] Provider on 08-13-2022 [facility] XR CHEST 2V FRONTAL/LATon [facility] XR Chest PA and Lateralon IMPRESSION: 1. Chronic fibrotic and other densities in the mid to lower lung saavedra bilaterally.. 2. Postsurgical changes right lower lobe. 3. No acute changes. Oim Consultant: JUAN Transcribe Date/Time: Aug 12 2022 6:58P Dictated by : MAHENDRA CARRILLO MD This examination was interpreted and the report reviewed and electronically signed by: MAHENDRA CARRILLO MD on Aug 12 2022 7:04PM [facility] DIVISION OF RADIOLOGY * * *Final Report* * * DATE OF EXAM: Aug 12 2022 6:52PM WOX 5291 - XR CHEST 2V FRONTAL/LAT / PROCEDURE REASON: Acute cough * * * * Physician Interpretation * * * * EXAMINATION: CHEST RADIOGRAPH (2 VIEW FRONTAL & LATERAL), 08/12/2022 CLINICAL HISTORY: Acute cough MQ: XC2_6 EXAM DATE/TIME: 08/12/2022 6:52 PM COMPARISON: CT chest 2022. PA and lateral chest 04/02/2020 RESULT: Lines, tubes, and devices: None. Lungs and pleura: Fine chain ricki again seen in the lower lobe.. Chronic fibrotic and/or atelectatic densities in the mid to lower lung saavedra bilaterally. No pleural effusion. No pneumothorax. Cardiomediastinal silhouette: Normal cardiomediastinal silhouette. Bones and soft tissues: Unremarkable. DIVISION OF RADIOLOGY Provider, [facility] - 08/12/2022 * * *Final Report* * * DATE OF EXAM: Aug 12 2022 6:52PM WOX 5291 - XR CHEST 2V FRONTAL/LAT / PROCEDURE REASON: Acute cough * * * * Physician Interpretation * * * * EXAMINATION: CHEST RADIOGRAPH (2 VIEW FRONTAL & LATERAL), 08/12/2022 CLINICAL HISTORY: Acute cough MQ: XC2_6 EXAM DATE/TIME: 08/12/2022 6:52 PM COMPARISON: CT chest 2022. PA and lateral chest 04/02/2020 RESULT: Lines, tubes, and devices: None. Lungs and pleura: Fine chain ricki again seen in the lower lobe.. Chronic fibrotic and/or atelectatic densities in the mid to lower lung saavedra bilaterally. No pleural effusion. No pneumothorax. Cardiomediastinal silhouette: Normal cardiomediastinal silhouette. Bones and soft tissues: Unremarkable. IMPRESSION IMPRESSION: 1. Chronic fibrotic and other densities in the mid to lower lung saavedra bilaterally.. 2. Postsurgical changes right lower lobe. 3. No acute changes. Oim Consultant: JUAN Transcribe Date/Time: Aug 12 2022 6:58P Dictated by : MAHENDRA CARRILLO MD This examination was interpreted and the report reviewed and electronically signed by: MAHENDRA CARRILLO MD on Aug 12 2022 7:04PM EST [facility] Radiology Study observation (narrative) [facility] XR Chest PA and LateralOrder ed By: Ccf Provider on 08-12-2022 [facility] XR ABDOMEN 1V SUPINEon 08-11 XR ABDOMEN 1V SUPINE * * *Final Report* * * DATE OF EXAM: Aug 11 2022 3:32PM TRAMAINE 5289 - XR ABDOMEN 1V SUPINE / PROCEDURE REASON: N20.0-Kidney stone * * * * Physician Interpretation * * * * Abdomen supine: HISTORY: Indication: Kidney stone TECHNIQUE: Views obtained: XR ABDOMEN 1V SUPINE Comparison: CT urogram 06/09/2022 RESULT: Findings: Large amount of fecal debris and bowel gas evaluation of the kidneys. No calcifications can be identified. No bony abnormalities are seen IMPRESSION: Findings as discussed under Results portion of report. Oim Consultant: PSCKeysha Transcribe Date/Time: Aug 13 2022 11:10A Dictated by : KARLA EBNAVIDEZ DO This examination was interpreted and the report reviewed and electronically signed by: KARLA BENAVIDEZ DO on Aug 13 2022 11:13AM EST [id number] [facility] XR Abdomen Supine and Uprigh ton 08-11-2022 Radiology Study observation (narrative) [facility] CHYNA [facility] MOLECULAR (POC)on Procedural Control Valid [facility] Strep A (POCT) Negative Negative [facility] CT UROGRAM WO/W IVCONon - [facility] UA DIP, URINE (POC)on 2022 BILIRUBIN UA (POCT) Negative Negative [facility] CLARITY UA (POCT) Clear [facility] COLOR UA (POCT) [place] [facility] GLUCOSE UA (POCT) Negative Negative mg/dL [facility] HEMOGLOBIN/BLOOD UA (POCT) Large Abnormal Negative [facility] KETONE UA (POCT) Negative Negative mg[facility] LEUKOCYTES UA (POCT) Small Abnormal Negative [facility] NITRITE UA (POCT) Negative Negative [facility] PH UA (POCT) 6.5 4.5 - 8.0 [facility] Protein Ql (U) 100 mg/dL Abnormal Negative mg/dL [facility] SPECIFIC GRAVITY UA (POCT) 1.015 1.005 - 1.030 [facility] UROBILINOGEN UA (POCT) 0.2 E.U./dL Normal E.U./dL [facility] CT CHEST WO IVCONon 04-06-20 [facility] UA DIP, URINE (POC)on 2021 BILIRUBIN UA (POCT) Negative Negative [facility] CLARITY UA (POCT) Clear [facility] COLOR UA (POCT) Yellow [facility] GLUCOSE UA (POCT) Negative Negative mg/dL [facility] HEMOGLOBIN/BLOOD UA (POCT) Moderate Abnormal Negative [facility] KETONE UA (POCT) Negative Negative mg[facility] LEUK[facility]A (POCT) Trace Abnormal Negative [facility] NITRITE UA (POCT) Negative Negative [facility] PH UA (POCT) 5.0 4.5 - 8.0 [facility] Protein Ql (U) Negative Negative mg/dL [facility] SPECIFIC GRAVITY UA (POCT) >=1.030 1.005 - 1.030 [facility] UROBILINOGEN UA (POCT) 0.2 E.U./dL Normal E.U./dL [facility] URINE CULTUREon 03-18-2022 Bacteria identified Cx Nom (U) >=100,000 CFU/ml Escherichia coli Abnormal [facility] Bacteria identified Cx Nom (U) 50,000-<100,000 CFU/ml Proteus mirabilis Abnormal [facility] UA DIP, URINE (POC)on 2021 BILIRUBIN UA (POCT) Negative Negative [facility] CLARITY UA (POCT) [facility] COLOR UA (POCT) Yellow [facility] GLUCOSE UA (POCT) Negative Negative mg/dL [facility] HEMOGLOBIN/BLOOD UA (POCT) Small Abnormal Negative [facility] KETONE UA (POCT) Negative Negative mg/dL [facility] LEUKOCYTES UA (POCT) Moderate Abnormal Negative [facility] NITRITE UA (POCT) Negative Negative [facility] PH UA (POCT) 6.5 4.5 - 8.0 [facility] Protein Ql (U) Negative Negative mg/dL [facility] SPECIFIC GRAVITY UA (POCT) 1.020 1.005 - 1.030 [facility] UROBILINOGEN UA (POCT) 0.2 E.U./dL Normal E.U./dL [facility] URINE CULTUREon 03-16-2022 Bacteria identified Cx Nom (U) Invalid Interpretation Code [facility] US FEMALE PELVIS TRANSVAGon 12-01-2021 [facility] UA DIP, URINE (POC)on 2021 BILIRUBIN UA (POCT) Negative Negative [facility] CLARITY UA (POCT) Clear [facility] COLOR UA (POCT) Yellow [facility] GLUCOSE UA (POCT) Negative Negative mg/dL [facility] HEMOGLOBIN/BLOOD UA (POCT) Moderate Abnormal Negative [facility] KETONE UA (POCT) Negative Negative mg/dL [facility] LEUKOCYTES UA (POCT) Negative Negative [facility] NITRITE UA (POCT) Negative Negative [facility] PH UA (POCT) 5.0 4.5 - 8.0 [facility] Protein Ql (U) Negative Negative mg/dL [facility] SPECIFIC GRAVITY UA (POCT) >=1.030 1.005 - 1.030 [facility] UROBILINOGEN UA (POCT) 0.2 E.U./dL Normal E.U./dL [facility] UA DIP, URINE (POC)on 2021 BILIRUBIN UA (POCT) Negative Negative [facility] CLARITY UA (POCT) Clear [facility] COLOR UA (POCT) Yellow [facility] GLUCOSE UA (POCT) Negative Negative mg/dL [facility] HEMOGLOBIN/BLOOD UA (POCT) Large Abnormal Negative [facility] KETONE UA (POCT) Negative Negative mg/dL [facility] LEUKOCYTES UA (POCT) Small Abnormal Negative [facility] NITRITE UA (POCT) Negative Negative [facility] PH UA (POCT) 5.0 4.5 - 8.0 [facility] Protein Ql (U) 30 mg/dL Abnormal Negative mg/dL [facility] SPECIFIC GRAVITY UA (POCT) 1.015 1.005 - 1.030 [facility] UROBILINOGEN UA (POCT) 0.2 E.U./dL Normal E.U./dL [facility] VARICELLA ZOSTER IGGon 08-14 Varicella Zoster IgG, Qual Positive Positive [facility] XR Ankle - right AP and Late ral and obliqueon 06-26-2020 IMPRESSION: Osseous demineralization with nondisplaced fracture of the lateral malleolus. Oim Consultant: [facility] Transcribe Date/Time: Jun 26 2020 4:20P Dictated by : JIMENA CHI MD This examination was interpreted and the report reviewed and electronically signed by: JIMENA CHI MD on Jun 26 2020 4:25PM [facility] DIVISION OF RADIOLOGY * * *Final Report* * * DATE OF EXAM: Jun 26 2020 3:42PM WOX 5297 - XR ANKLE 3V AP/LAT/OBL RT / PROCEDURE REASON: Acute right ankle pain * * * * Physician Interpretation * * * * CLINICAL INDICATION: Right ankle pain TECHNIQUE: 3 view radiographic study of the right ankle COMPARISON: None FINDINGS: Soft tissue swelling overlying the lateral malleolus. Osseous demineralization. Nondisplaced fracture of the lateral malleolus. Plantar calcaneal enthesophyte. DIVISION OF RADIOLOGY Provider, [facility] - 06/26/2020 * * *Final Report* * * DATE OF EXAM: Jun 26 2020 3:42PM WOX 5297 - XR ANKLE 3V AP/LAT/OBL RT / PROCEDURE REASON: Acute right ankle pain * * * * Physician Interpretation * * * * CLINICAL INDICATION: Right ankle pain TECHNIQUE: 3 view radiographic study of the right ankle COMPARISON: None FINDINGS: Soft tissue swelling overlying the lateral malleolus. Osseous demineralization. Nondisplaced fracture of the lateral malleolus. Plantar calcaneal enthesophyte. IMPRESSION IMPRESSION: Osseous demineralization with nondisplaced fracture of the lateral malleolus. Oim Consultant: PSCB Transcribe Date/Time: Jun 26 2020 4:20P Dictated by : JIMENA CHI MD This examination was interpreted and the report reviewed and electronically signed by: JIMENA CHI MD on Jun 26 2020 4:25PM EST [facility] Radiology Study observation (narrative) [facility] XR Ankle - right AP and Late ral and obliqueOrdered By: Ccf Provider on 06-26-2020 [facility] Vital Signs Date Time Vital Sign Value Performing Clinician Ramiro shelby 03-01-2024 08:38-0400 Body mass index (BMI) [Ratio] 30.32 kg/m2 Jacqueline Carpenter APRN.PARTY BUS DRIVER Work Phone: [facility] 03-01-2024 08:38-0400 Body weight 82.64 kg Jacqueline Carpenter [employer]MENT [employer] CUTTER MACHINE.[employer]IVER Work Phone: [facility] 03-01-2024 08:38-0400 Diastolic blood pressure 58 mm[Hg] Jacqueline Carpenter [employer]MENT [employer] CUTTER MACHINE.[employer]Y [employer] DRIVER Work Phone: [facility] 03-01-2024 08:38-0400 Heart rate 72 /min Jacqueline Carpenter [employer]MENT [employer] CUTTER MACHINE.[employer]Y [employer] DRIVER Work Phone: [facility] 03-01-2024 08:38-0400 Respiratory rate 16 /min Jacqueline Carpenter [employer]MENT [employer] CUTTER MACHINE.PARTY [employer] DRIVER Work Phone: [facility] 03-01-2024 08:38-0400 Systolic blood pressure 82 mm[Hg] Jacqueline Carpenter [employer]MENT [employer] CUTTER MACHINE.PARTY [employer] DRIVER Work Phone: [facility] 01-13-2024 14:01-0400 Body height 165.1 cm Avtar Roberts MD Work Phone: [facility] 01-13-2024 14:01-0400 Body mass index (BMI) [Ratio] 32.14 kg/m2 Avtar Roberts MD Work Phone: [facility] 01-13-2024 14:01-0400 Body weight 87.6 kg Avtar Roberts MD Work Phone: [facility] 01-13-2024 14:01-0400 Diastolic blood pressure 66 mm[Hg] Avtar Roberts MD Work Phone: [facility] 01-13-2024 14:01-0400 Heart rate 62 /min Avtar Roberts MD Work Phone: [facility] 01-13-2024 14:01-0400 SaO2% (BldA) [Mass fraction] 98 % Avtar Roberts MD Work Phone: [facility] 01-13-2024 14:01-0400 Systolic blood pressure 101 mm[Hg] Avtar Roberts MD Work Phone: [facility] 01-11-2024 11:18-0400 Body height 162.6 cm Wiley Benitez MD Work Phone: [facility] 01-11-2024 11:18-0400 Body mass index (BMI) [Ratio] 32.96 kg/m2 Wiley Benitez MD Work Phone: [facility] 01-11-2024 11:18-0400 Body weight 87.09 kg Wiley Benitez MD Work Phone: [facility] 01-11-2024 11:18-0400 Diastolic blood pressure 80 mm[Hg] Wiley Benitez MD Work Phone: [facility] 01-11-2024 11:18-0400 Systolic blood pressure 118 mm[Hg] Wiley Benitez MD Work Phone: [facility] 12-28-2023 07:05-0400 Body mass index (BMI) [Ratio] 32.54 kg/m2 Jacqueline Carpenter APRN.CNP Work Phone: [facility] 12-28-2023 07:05-0400 Body weight 86 kg Jacqueline Edwardhooanh [employer]MENT [employer] CUTTER MACHINE.[employer]Y [employer]IVER Work Phone: [facility] 12-28-2023 07:05-0400 Diastolic blood pressure 70 mm[Hg] Jacqueline Leonhof [employer]MENT [employer] CUTTER MACHINE.[employer]Y [employer] DRIVER Work Phone: [facility] 12-28-2023 07:05-0400 Heart rate 70 /min Jacquelinevaishnavi Leonhof [employer]ARMENT [employer] CUTTER MACHINE.PARTY [employer] DRIVER Work Phone: [facility] 12-28-2023 07:05-0400 Respiratory rate 16 /min Jacquelinevaishnavi Leonhof [employer]MENT [employer] CUTTER MACHINE.PARTY [employer] DRIVER Work Phone: [facility] 12-28-2023 07:05-0400 SaO2% (BldA) [Mass fraction] 97 % Jacqueline Leonhof [employer]ARMENT [employer] CUTTER MACHINE.PARTY [employer] DRIVER Work Phone: [facility] 12-28-2023 07:05-0400 Systolic blood pressure 110 mm[Hg] Jacqueline Leonhof [employer]MENT [employer] C[employer]TER MACHINE.PARTY [employer] DRIVER Work Phone: [facility] 12-21-2023 13:53-0400 Body height 162.6 cm Mathew Yang Jr., MD Work Phone: [facility] 12-21-2023 13:53-0400 Body mass index (BMI) [Ratio] 32.44 kg/m2 Mathew Yang Jr., MD Work Phone: [facility] 12-21-2023 13:53-0400 Body weight 85.73 kg Mathew Yang Jr., MD Work Phone: [facility] 12-01-2023 13:46-0400 Diastolic blood pressure 67 mm[Hg] Wiley Benitez MD Work Phone: [facility] 12-01-2023 13:46-0400 Systolic blood pressure 100 mm[Hg] Wiley Benitez MD Work Phone: [facility] 11-29-2023 08:14-0400 Body height 162.6 cm Muriel Lopez GARMENT [employer] CUTTER MACHINE.CN Work Phone: [facility] 11-29-2023 08:14-0400 Body mass index (BMI) [Ratio] 32.61 kg/m2 Muriel Plotts [employer]ARMENT [employer] CUTTER MACHINE.CNM Work Phone: [facility] 11-29-2023 08:14-0400 Body weight 86.18 kg Muriel Plotts GARMENT [employer] CUTTER MACHINE.CNM Work Phone: [facility] 11-29-2023 08:14-0400 Diastolic blood pressure 76 mm[Hg] Muriel Plotts GARMENT [employer] CUTTER MACHINE.CNM Work Phone: [facility] 11-29-2023 08:14-0400 Systolic blood pressure 114 mm[Hg] Muriel Plotts GARMENT [employer] CUTTER MACHINE.CNM Work Phone: [facility] 11-09-2023 08:49-0400 Body mass index (BMI) [Ratio] 32.28 kg/m2 Mathew Yang Jr., MD Work Phone: [facility] 11-09-2023 08:49-0400 Body weight 88 kg Mathew Yang Jr., MD Work Phone: [facility] 10-14-2023 06:53-0400 Body mass index (BMI) [Ratio] 32.62 kg/m2 Jacqueline Carpenter [employer]MENT [employer] C[employer]TER MACHINE.PARTY [employer] DRIVER Work Phone: [facility] 10-14-2023 06:53-0400 Body weight 88.91 kg Jacqueline Metcalff [employer]MENT [employer] C[employer]TER MACHINE.PARTY [employer] DRIVER Work Phone: [facility] 10-14-2023 06:53-0400 Diastolic blood pressure 66 mm[Hg] Jacqueline Metcalff [employer]ARMENT [employer] CUTTER MACHINE.PARTY BUS DRIVER Work Phone: [facility] 10-14-2023 06:53-0400 Heart rate 98 /min Jacqueline Metcalff GARMENT [employer] CUTTER MACHINE.PARTY BUS DRIVER Work Phone: [facility] 10-14-2023 06:53-0400 Respiratory rate 16 /min Jacqueline Carpenter GARMENT [employer] CUTTER MACHINE.PARTY BUS DRIVER Work Phone: [facility] 10-14-2023 06:53-0400 SaO2% (BldA) [Mass fraction] 77 % Jacqueline Carpenter [employer]ARMENT [employer] CUTTER MACHINE.PARTY BUS DRIVER Work Phone: [facility] 10-14-2023 06:53-0400 Systolic blood pressure 98 mm[Hg] Jacqueline Metcalff GARMENT [employer] CUTTER MACHINE.PARTY BUS DRIVER Work Phone: [facility] 10-07-2023 08:23-0400 Diastolic blood pressure 82 mm[Hg] Tariq Barley [employer]MENT [employer] CUTTER MACHINE.PARTY BUS DRIVER Work Phone (unformatted): [phone] [facility] 10-07-2023 08:23-0400 Systolic blood pressure 121 mm[Hg] Tariq Barley [employer]ARMENT [employer] CUTTER MACHINE.PARTY BUS DRIVER Work Phone (unformatted): [phone] [facility] 09-16-2023 13:06-0400 Body mass index (BMI) [Ratio] 32.95 kg/m2 Rowan Temple MD Work Phone: [facility] 09-16-2023 13:06-0400 Body weight 89.81 kg Rowan Temple MD Work Phone: [facility] 09-16-2023 13:06-0400 Diastolic blood pressure 74 mm[Hg] Rowan Temple MD Work Phone: [facility] 09-16-2023 13:06-0400 Heart rate 91 /min Rowan Temple MD Work Phone: [facility] 09-16-2023 13:06-0400 Respiratory rate 16 /min Rowan Temple MD Work Phone: [facility] 09-16-2023 13:06-0400 SaO2% (BldA) [Mass fraction] 97 % Rowan Temple MD Work Phone: [facility] 09-16-2023 13:06-0400 Systolic blood pressure 118 mm[Hg] Rowan Temple MD Work Phone: [facility] 09-02-2023 08:21-0400 Diastolic blood pressure 72 mm[Hg] Tariq Barley [employer]MENT [employer] CUTTER MACHINE.PARTY BUS DRIVER Work Phone (unformatted): [phone] [facility] 09-02-2023 08:21-0400 Systolic blood pressure 102 mm[Hg] Tariq Brooks APRN.PARTY BUS DRIVER Work Phone (unformatted): [phone] [facility] 06-22-2023 09:11-0500 Body height 165.1 cm Priyanka Smith MD Work Phone: [facility] 06-22-2023 09:11-0500 Body weight 93.62 kg Priyanka Smith MD Work Phone: [facility] 06-22-2023 09:11-0500 Diastolic blood pressure 78 mm[Hg] Priyanka Smith MD Work Phone: [facility] 06-22-2023 09:11-0500 Heart rate 72 /min Priyanka Smith MD Work Phone: [facility] 06-22-2023 09:11-0500 Respiratory rate 18 /min Priyanka Smith MD Work Phone: [facility] 06-22-2023 09:11-0500 Systolic blood pressure 118 mm[Hg] Priyanka Smith MD Work Phone: [facility] 01-15-2023 08:01-0400 Diastolic blood pressure 82 mm[Hg] John Mg MD Work Phone: [facility] 01-15-2023 08:01-0400 Heart rate 73 /min John Mg MD Work Phone: [facility] 01-15-2023 08:01-0400 Systolic blood pressure 119 mm[Hg] John Mg MD Work Phone: [facility] 01-12-2023 10:24-0400 Body height 161.3 cm Pacc 1 Work Phone: [facility] 01-12-2023 10:24-0400 Body temperature 98.4 [degF] Pacc 1 Work Phone: [facility] 01-12-2023 10:24-0400 Body weight 90.72 kg Pacc 1 Work Phone: [facility] 01-12-2023 10:24-0400 Diastolic blood pressure 77 mm[Hg] Pacc 1 Work Phone: [facility] 01-12-2023 10:24-0400 Heart rate 79 /min Pacc 1 Work Phone: [facility] 01-12-2023 10:24-0400 Respiratory rate 18 /min Pacc 1 Work Phone: [facility] 01-12-2023 10:24-0400 SaO2% (BldA) [Mass fraction] 97 % Pacc 1 Work Phone: [facility] 01-12-2023 10:24-0400 Systolic blood pressure 129 mm[Hg] Pacc 1 Work Phone: [facility] 12-22-2022 09:03-0400 Body weight 91.63 kg Priyanka Smith MD Work Phone: [facility] 12-22-2022 09:03-0400 Diastolic blood pressure 80 mm[Hg] Priyanka Smith MD Work Phone: [facility] 12-22-2022 09:03-0400 Heart rate 80 /min Priyanka Smith MD Work Phone: [facility] 12-22-2022 09:03-0400 Respiratory rate 16 /min Priyanka Smith MD Work Phone: [facility] 12-22-2022 09:03-0400 Systolic blood pressure 118 mm[Hg] Priyanka Smith MD Work Phone: [facility] 11-16-2022 09:40-0400 Body weight 92.53 kg Pulm Wstr Work Phone: [facility] 11-03-2022 10:56-0400 Body height 165.1 cm Mathew Yang Jr., MD Work Phone: [facility] 11-03-2022 10:56-0400 Body weight 92.53 kg Mathew Yang Jr., MD Work Phone: [facility] 08-20-2022 14:10-0400 Body weight 90.36 kg Priyanka Smith MD Work Phone: [facility] 08-20-2022 14:10-0400 Diastolic blood pressure 80 mm[Hg] Priyanka Smith MD Work Phone: [facility] 08-20-2022 14:10-0400 Heart rate 78 /min Priyanka Smith MD Work Phone: [facility] 08-20-2022 14:10-0400 Respiratory rate 16 /min Priyanka Smith MD Work Phone: [facility] 08-20-2022 14:10-0400 Systolic blood pressure 130 mm[Hg] Priyanka Smith MD Work Phone: [facility] 08-12-2022 18:29-0400 Body temperature 99.3 [degF] Guillermo [facility] GARMENT PARTS CUTTER MACHINE.PARTY BUS DRIVER Work Phone: [facility] 08-12-2022 18:29-0400 Body weight 89.63 kg [facility] G[facility]MENT PARTS CUTTER MACHINE.PARTY BUS DRIVER Work Phone: [facility] 08-12-2022 18:29-0400 Diastolic blood pressure 78 mm[Hg] Guillermo [facility] GARMENT PARTS CUTTER MACHINE.PARTY BUS DRIVER Work Phone: [facility] 08-12-2022 18:29-0400 Heart rate 101 /min Guillermo Pendjorge luis GARMENT PARTS CUTTER MACHINE.PARTY BUS DRIVER Work Phone: [facility] 08-12-2022 18:29-0400 Respiratory rate 20 /min Guillermo Pendjorge luis GARMENT PARTS CUTTER MACHINE.PARTY BUS DRIVER Work Phone: [facility] 08-12-2022 18:29-0400 SaO2% (BldA) [Mass fraction] 99 % Guillermo Martinezrosalina GARMENT PARTS CUTTER MACHINE.PARTY BUS DRIVER Work Phone: [facility] 08-12-2022 18:29-0400 Systolic blood pressure 120 mm[Hg] Guillermo Mccormick GARMENT PARTS CUTTER MACHINE.PARTY BUS DRIVER Work Phone: [facility] 08-11-2022 14:50-0400 Body height 165.1 cm Mathew Yang Jr., MD Work Phone: [facility] 08-11-2022 14:50-0400 Body weight 87.54 kg Mathew Yang Jr., MD Work Phone: [facility] 07-01-2022 18:02-0500 Body temperature 99.3 [degF] Krislyn Aberegg PA Work Phone: [facility] 07-01-2022 18:02-0500 Body weight 91.54 kg Krislyn Aberegg PA Work Phone: [facility] 07-01-2022 18:02-0500 Diastolic blood pressure 72 mm[Hg] Krislyn Aberegg PA Work Phone: [facility] 07-01-2022 18:02-0500 Heart rate 98 /min Krislyn Aberegg PA Work Phone: [facility] 07-01-2022 18:02-0500 Respiratory rate 18 /min Krislyn Aberegg PA Work Phone: [facility] 07-01-2022 18:02-0500 SaO2% (BldA) [Mass fraction] 98 % Krislyn Aberegg PA Work Phone: [facility] 07-01-2022 18:02-0500 Systolic blood pressure 114 mm[Hg] Krislyn Aberegg PA Work Phone: [facility] 06-22-2022 14:40-0500 Body weight 93.08 kg Priyanka Smith MD Work Phone: [facility] 06-22-2022 14:40-0500 Diastolic blood pressure 70 mm[Hg] Priyanka Smith MD Work Phone: [facility] 06-22-2022 14:40-0500 Heart rate 74 /min Priyanka Smith MD Work Phone: [facility] 06-22-2022 14:40-0500 Respiratory rate 16 /min Priyanka Smith MD Work Phone: [facility] 06-22-2022 14:40-0500 Systolic blood pressure 118 mm[Hg] Priyanka Smith MD Work Phone: [facility] 05-22-2022 14:59-0500 Diastolic blood pressure 85 mm[Hg] Proc Shared Work Phone: [facility] 05-22-2022 14:59-0500 Systolic blood pressure 127 mm[Hg] Proc Shared Work Phone: [facility] 04-17-2022 14:33-0500 Body weight 92.53 kg Rowan Temple MD Work Phone: [facility] 04-17-2022 14:33-0500 Diastolic blood pressure 72 mm[Hg] Rowan Temple MD Work Phone: [facility] 04-17-2022 14:33-0500 Heart rate 86 /min Rowan Temple MD Work Phone: [facility] 04-17-2022 14:33-0500 SaO2% (BldA) [Mass fraction] 99 % Rowan Temple MD Work Phone: [facility] 04-17-2022 14:33-0500 Systolic blood pressure 133 mm[Hg] Rowan Temple MD Work Phone: [facility] 04-02-2022 08:22-0500 Body temperature 97.59 [degF] Genie Olson APRN.PARTY BUS DRIVER Work Phone: [facility] 04-02-2022 08:22-0500 Body weight 92.99 kg Genie Olson APRN.PARTY BUS DRIVER Work Phone: [facility] 04-02-2022 08:22-0500 Diastolic blood pressure 72 mm[Hg] Genie Olson APRN.PARTY BUS DRIVER Work Phone: [facility] 04-02-2022 08:22-0500 Heart rate 79 /min Genie Olson APRN.PARTY BUS DRIVER Work Phone: [facility] 04-02-2022 08:22-0500 Respiratory rate 18 /min Genie Olson APRN.PARTY BUS DRIVER Work Phone: [facility] 04-02-2022 08:22-0500 SaO2% (BldA) [Mass fraction] 99 % Genie Allyson GARMENT PARTS CUTTER MACHINE.PARTY BUS DRIVER Work Phone: [facility] 04-02-2022 08:22-0500 Systolic blood pressure 110 mm[Hg] Genie Olson APRN.PARTY BUS DRIVER Work Phone: [facility] 03-16-2022 09:23-0400 Body weight 91.63 kg John Mg MD Work Phone: [facility] 03-16-2022 09:23-0400 Diastolic blood pressure 74 mm[Hg] John Mg MD Work Phone: [facility] 03-16-2022 09:23-0400 Systolic blood pressure 108 mm[Hg] John Mg MD Work Phone: [facility] 02-16-2022 09:36-0400 Body weight 89.36 kg Rowan Temple MD Work Phone: [facility] 02-16-2022 09:36-0400 Diastolic blood pressure 62 mm[Hg] Rowan Temple MD Work Phone: [facility] 02-16-2022 09:36-0400 Heart rate 78 /min Rowan Temple MD Work Phone: [facility] 02-16-2022 09:36-0400 Respiratory rate 17 /min Rowan Temple MD Work Phone: [facility] 02-16-2022 09:36-0400 SaO2% (BldA) [Mass fraction] 97 % Rowan Temple MD Work Phone: [facility] 02-16-2022 09:36-0400 Systolic blood pressure 118 mm[Hg] Rowan Temple MD Work Phone: [facility] 12-19-2021 09:18-0400 Body weight 85 kg Priyanka Smith MD Work Phone: [facility] 12-19-2021 09:18-0400 Diastolic blood pressure 68 mm[Hg] Priyanka Smith MD Work Phone: [facility] 12-19-2021 09:18-0400 Heart rate 78 /min Priyanka Smith MD Work Phone: [facility] 12-19-2021 09:18-0400 Respiratory rate 16 /min Priyanka Smith MD Work Phone: [facility] 12-19-2021 09:18-0400 Systolic blood pressure 110 mm[Hg] Priyanka mSith MD Work Phone: [facility] 11-26-2021 09:40-0400 Body height 166.4 cm Muriel Plotts GARMENT PARTS CUTTER MACHINE.CNM Work Phone: [facility] 11-26-2021 09:40-0400 Body weight 83.92 kg Muriel Plotts GARMENT PARTS CUTTER MACHINE.CNM Work Phone: [facility] 11-26-2021 09:40-0400 Diastolic blood pressure 64 mm[Hg] Muriel Plotts GARMENT PARTS CUTTER MACHINE.CNM Work Phone: [facility] 11-26-2021 09:40-0400 Systolic blood pressure 108 mm[Hg] Muriel Plotts GARMENT PARTS CUTTER MACHINE.CNM Work Phone: [facility] 11-05-2021 09:30-0400 Body weight 82.1 kg Cleo Maynard GARMENT PARTS CUTTER MACHINE.CNM Work Phone: [facility] 11-05-2021 09:30-0400 Diastolic blood pressure 70 mm[Hg] Cleo Maynard GARMENT PARTS CUTTER MACHINE.CNM Work Phone: [facility] 11-05-2021 09:30-0400 Systolic blood pressure 112 mm[Hg] Cleo Maynard GARMENT PARTS CUTTER MACHINE.CNM Work Phone: [facility] 08-12-2021 13:46-0400 Body height 161.3 cm Gumaro Cuenca MD Work Phone: [facility] 08-12-2021 13:46-0400 Body weight 77.11 kg Gumaro Cuenca MD Work Phone: [facility] 08-12-2021 13:46-0400 Diastolic blood pressure 62 mm[Hg] Gumaro Cuenca MD Work Phone: [facility] 08-12-2021 13:46-0400 Heart rate 94 /min Gumaor Cuenca MD Work Phone: [facility] 08-12-2021 13:46-0400 SaO2% (BldA) [Mass fraction] 99 % Gumaro Cuenca MD Work Phone: [facility] 08-12-2021 13:46-0400 Systolic blood pressure 108 mm[Hg] Gumaro Cuenca MD Work Phone: [facility] 08-12-2021 13:41-0400 Body height 161.3 cm Respiratory Wstr Work Phone: [facility] 08-12-2021 13:41-0400 Body weight 77.11 kg Respiratory Wstr Work Phone: [facility] 08-12-2021 13:41-0400 Heart rate 94 /min Respiratory Wstr Work Phone: [facility] 08-12-2021 13:41-0400 Respiratory rate 14 /min Respiratory Wstr Work Phone: [facility] 08-12-2021 13:41-0400 SaO2% (BldA) [Mass fraction] 99 % Respiratory Wstr Work Phone: [facility] Encounters Encounter Date Encounter Type Care Provider Facility Start: 03-01-2024 End: 03-01-2024 Patient encounter procedure Jacqueline Carpenter APRN.PARTY BUS DRIVER Work Phone: [facility] [place] Comment on above: Fall, initial encoun ter (Primary Dx); Hypotension, unspecified hypotension type; Rib pain Start: 03-01-2024 ambulatory PRIYANKA Msue ity:[facility] Start: 02-02-2024 End: 02-02-2024 Telephone encounter Jacqueline Carpenter APRN.PARTY BUS DRIVER Work Phone: [facility] [place] Comment on above: Results (Labs ) Start: 02-01-2024 End: 02-01-2024 Refill Rowan Temple MD Work Phone: Pulmonary Medicine Comment on above: Refill Request Start: 01-31-2024 End: 01-31-2024 ambulatory Wiley Benitez MD Work Phone: URO/Gynecology Comment on above: Amitriptyline Start: 01-13-2024 End: 01-13-2024 ambulatory [facility] Facility:[facility] Start: 01-13-2024 End: 01-13-2024 Office outpatient new 45 minutes Avtar Roberts MD Work Phone: Neurology Comment on above: Tremor (Primary Dx); Dyskinesia, tardive; Drug-induced parkinsonism (HCC) Start: 01-11-2024 End: 01-11-2024 ambulatory [facility] Facility:[facility] Start: 01-11-2024 End: 01-11-2024 Patient encounter procedure Wiley Benitez MD Work Phone: URO/Gynecology Comment on above: Chronic interstitial cystitis (Primary Dx) Start: 12-28-2023 End: 12-28-2023 Patient encounter procedure Jacqueline Carpenter APRN.CNP Work Phone: Family [facility] Comment on above: Tremor (Primary Dx); Hypothyroidism, unspecified type; Low sodium levels; ILD (interstitial lung disease) (HCC); Stage 3a chronic kidney disease (HCC); Function kidney decreased; Elevated glucose; Obesity, Class I, BMI 30-34.9; Screening for depression; Encounter for screening examination for other mental health and behavioral disorders Start: 12-28-2023 End: 12-28-2023 ambulatory [facility] Facility:[facility] Start: 12-21-2023 End: 12-21-2023 ambulatory MATHEW YANG JR Facility:[facility] Start: 12-21-2023 End: 12-21-2023 Patient encounter procedure Mathew Yang MD Work Phone: Urology Comment on above: Kidney stone (Primar y Dx) Start: 12-16-2023 End: 12-16-2023 ambulatory [facility] Facility:[facility] Start: 12-01-2023 End: 12-01-2023 ambulatory [facility] Facility:[facility] Start: 12-01-2023 End: 12-01-2023 Patient encounter procedure Wiley Benitez MD Work Phone: [facility] Comment on above: Overactive bladder ( Primary Dx); Urinary frequency Start: 11-29-2023 End: 11-29-2023 Patient encounter procedure Muriel Lopez GARMENT PARTS CUTTER MACHINE.CNM Work Phone: OB/Gynecology Comment on above: Encounter for gyneco logical examination (general) (routine) without abnormal findings (Primary Dx); Pap smear for cervical cancer screening; Encounter for screening mammogram for breast cancer Start: 11-29-2023 End: 11-29-2023 Patient encounter status Muriel Lopez GARMENT PARTS CUTTER MACHINE.CNM Work Phone: [facility] Start: 11-29-2023 End: 11-29-2023 ambulatory [facility] Facility:[facility] Start: 11-29-2023 End: 11-29-2023 Subsequent hospital visit by physician Xr [facility] [place] Jasmine Work Phone: Radiology Comment on above: Kidney stone [N20.0] Start: 11-22-2023 Telephone encounter Mathew Yang MD Work Phone: [place] [facility] Comment on above: Appointment Start: 11-22-2023 End: 11-22-2023 ambulatory MATHEW YANG JR Facility[facility] Start: 11-15-2023 End: 11-15-2023 ambulatory MATHEW YANG JR Facility:[facility] Start: 11-12-2023 Telephone encounter Wiley Benitez MD Work Phone: [facility] Comment on above: Route Rider - O ther Start: 11-10-2023 Telephone encounter Wiley Benitez MD Work Phone: [facility] Comment on above: Insurance Authorizat ion (Prior Auth Denied: Appeal Requested) Start: 11-09-2023 End: 11-09-2023 ambulatory MATHEW YANG JR Facility:[facility] Start: 11-09-2023 End: 11-09-2023 Patient encounter procedure Mathew Yang MD Work Phone: Urology Comment on above: Kidney stone (Primar y Dx) Start: 11-04-2023 End: 11-04-2023 ambulatory MATHEW YANG JR Facility:[facility] Start: 11-04-2023 End: 11-04-2023 Subsequent hospital visit by physician Xr [facility] [place] Work Phone: Radiology Comment on above: Kidney stone [N20.0] Start: 11-02-2023 Telephone encounter Wiley Benitez MD Work Phone: [facility] Comment on above: Insurance Authorizat ion (Prior Auth Delayed Additional Information Needed Requested) Start: 11-02-2023 End: 11-02-2023 ambulatory [facility] Facility:[facility] Start: 11-02-2023 End: 11-02-2023 Subsequent hospital visit by physician Ct [facility] (I-Stat) Work Phone: Cat Scan Start: 10-20-2023 Telephone encounter Wiley Benitez MD Work Phone: [facility] [place] [facility] Comment on above: Care Coordination (B otox) Start: 10-14-2023 End: 10-14-2023 ambulatory Jacqueline Carpenter APRN.PARTY BUS DRIVER Work Phone: [facility] [place] Start: 10-14-2023 End: 10-14-2023 Patient encounter procedure Jacqueline Carpenter APRN.PARTY BUS DRIVER Work Phone: [facility] Comment on above: Tremor (Primary Dx) Consult to Dr Miller Start: 10-07-2023 End: 10-07-2023 ambulatory [facility] Facility:[facility] Start: 10-07-2023 End: 10-07-2023 Patient encounter procedure Tariq Brooks APRN.PARTY BUS DRIVER Work Phone (unformatted): [phone] [facility] [place] [facility] Comment on above: Overactive bladder ( Primary Dx); Vulvar burning; Vaginal atrophy Start: 09-16-2023 End: 09-16-2023 [facility] Facility:[facility] Start: 09-16-2023 End: 09-16-2023 Patient encounter procedure Rowan Temple MD Work Phone: Pulmonary Medicine Comment on above: NSIP (nonspecific in terstitial pneumonitis) (HCC) (Primary Dx); Current chronic use of systemic steroids; FDC current use of immunosuppressive drug Start: 09-14-2023 End: 09-14-2023 [facility] Facility:[facility] Start: 09-09-2023 E-mail encounter fro m caregiver Tariq Brooks HAILE.PARTY BUS DRIVER Work Phone (unformatted): [phone] [facility] [place] [facility] Start: 09-09-2023 Follow-up encounter Tariq Israel beverly APRN.PARTY BUS DRIVER Work Phone (unformatted): [phone] [facility] [place] [facility] Comment on above: Follow Up Start: 09-09-2023 End: 09-09-2023 ambulatory Tariq Brooks GARMENT PARTS CUTTER MACHINE.PARTY BUS DRIVER Work Phone (unformatted): [phone] [facility] [place] [facility] Comment on above: Urinary frequency (P rimary Dx); Vaginal burning Start: 09-09-2023 End: 09-09-2023 Telemedicine consultation with patient Tariq Brooks APRN.PARTY BUS DRIVER Work Phone (unformatted): [phone] [facility] [place] [facility] Start: 09-02-2023 End: 09-02-2023 [facility] Facility:[facility] Start: 09-02-2023 End: 09-02-2023 Patient encounter procedure Tariq Brooks GARMENT PARTS CUTTER MACHINE.PARTY BUS DRIVER Work Phone (unformatted): [phone] [facility] [place] [facility] Comment on above: Overactive bladder ( Primary Dx); Urinary frequency; Dysuria; Neurostimulator device in situ Start: 09-01-2023 Refill Muriel oro APRN.CNM Work Phone: OB/Gynecology Comment on above: Refill Request Start: 08-19-2023 Documentation procedure Mammog ruthie Coordinator [facility] Start: 08-19-2023 Letter encounter Mammography Coordinator [facility] Department Start: 08-18-2023 End: 08-18-2023 ambulatory [facility] Facility:[facility] Start: 08-18-2023 End: 08-18-2023 Subsequent hospital visit by physician Screen Mammo [facility] Mammogram Comment on above: Encounter for screen ing mammogram for malignant neoplasm of breast [Z12.31] Start: 08-09-2023 ambulatory Tariq Cecilia VELAZQUEZPARTY BUS DRIVER Work Phone (unformatted): [phone] [facility] [place] [facility] Comment on above: Interstim Refill Request Start: 08-06-2023 Telephone encounter Muriel talbot APRN.CNM Work Phone: OB/Gynecology Comment on above: Orders (Mammogram) Start: 06-22-2023 End: 06-22-2023 ambulatory [facility] Facility:[facility] Start: 06-22-2023 End: 06-22-2023 Patient encounter procedure Priyanka Smith MD Work Phone: Family Medicine [place] Comment on above: Medicare annual well ness visit, initial (Primary Dx); Hypothyroidism, unspecified type; ILD (interstitial lung disease) (HCC); Low sodium levels; OAB (overactive bladder); Encounter for screening mammogram for malignant neoplasm of breast; Stage 3a chronic kidney disease (HCC); Obesity, Class I, BMI 30-34.9 Start: 06-11-2023 End: 06-11-2023 [facility] Facility:[facility] Start: 05-08-2023 End: 05-08-2023 [facility] Facility:[facility] Start: 03-09-2023 E-mail encounter fro m caregiver Tariq Cecilia BE.PARTY BUS DRIVER Work Phone (unformatted): [phone] [facility] Start: 03-09-2023 Follow-up encounter Tariq beverly GARMENT PARTS CUTTER MACHINE.PARTY BUS DRIVER Work Phone (unformatted): [phone] Urogynecology Comment on above: Follow Up Start: 03-01-2023 End: 03-01-2023 Nursing evaluation of patient and report Mi Nurse Work Phone: Family Medicine [place] Comment on above: Need for vaccination (Primary Dx) Start: 02-25-2023 End: 02-25-2023 Patient encounter procedure Tariq Brooks PARTY BUS DRIVER Work Phone (unformatted): [phone] [facility] [place] [facility] Comment on above: Post-operative state (Primary Dx); Urinary frequency Start: 02-24-2023 End: 02-24-2023 ambulatory [facility] Nurse [place] Work Phone: Family [facility] [place] Start: 02-08-2023 Refill Rowan Temple MD Work Phone: Pulmonary Medicine Comment on above: Refill Request Start: 01-28-2023 End: 01-28-2023 ambulatory [facility] Facility:[facility] Start: 01-15-2023 End: 01-15-2023 Patient encounter procedure John Mg MD Work Phone: [facility] [place] [facility] Comment on above: Preoperative examina tion (Primary Dx); OAB (overactive bladder); Urge urinary incontinence; Urinary frequency; Urinary urgency Start: 01-15-2023 End: 01-15-2023 Preprocedural examination done John Mg MD Work Phone: [facility] Start: 01-12-2023 End: 01-12-2023 [facility] Facility:[facility] Start: 01-12-2023 Encounter for other preprocedural examination MATHEW YANG JR [facility] Start: 01-12-2023 End: 01-12-2023 Admission to [place] [id number] Work Phone: [facility] Start: 01-12-2023 End: 01-12-2023 [place] [id number] Work Phone: Pre Anesthesia Comment on above: Preoperative examina tion (Primary Dx); NSIP (nonspecific interstitial pneumonitis) (HCC); Esophageal dysmotility; Acquired hypothyroidism; Thymoma, malignant (HCC); Current chronic use of systemic steroids; Stage 3a chronic kidney disease (HCC) Start: 01-12-2023 End: 01-12-2023 Preprocedural examination done [place] [address] Work Phone: [facility] Work Phone: Start: 01-02-2023 ambulatory John swenson MD Work Phone: [facility] [facility] Comment on above: Metronidazole sympto m diary Start: 12-22-2022 End: 12-22-2022 Patient encounter procedure Priyanka Smith MD Work Phone: [facility] Comment on above: Hypothyroidism, unsp ecified type (Primary Dx); Brad esophagitis (HCC); Epigastric pain; Esophageal dysmotility; ILD (interstitial lung disease) (HCC); OAB (overactive bladder); Low sodium levels; 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); Thymoma, malignant ([facility]) Start: 11-25-2022 Refill Priyanka rausch MD Work Phone: [facility] Comment on above: Refill Request Start: 11-16-2022 End: 11-16-2022 ambulatory Pulm [facility] Work Phone: [facility] Comment on above: Spirometry Start: 11-16-2022 End: 11-16-2022 Patient encounter procedure [facility] Work Phone: [facility] [place] Start: 11-06-2022 Orders Only John swenson MD Work Phone: Urogynecology Comment on above: Urinary frequency (P rimary Dx); OAB (overactive bladder); Nocturia; Preop examination Start: 11-06-2022 Preprocedural examin ation done John Mg MD Work Phone: Urogynecology Start: 11-03-2022 End: 11-03-2022 Patient encounter procedure Mathew Yang MD Work Phone: Urology Comment on above: Kidney stone (Primar y Dx) Start: 10-27-2022 End: 10-27-2022 Subsequent hospital visit by physician Ct [facility] (I-Stat) Work Phone: Cat Scan Comment on above: 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) ([facility]) [J84.89] Start: 10-15-2022 Telephone encounter Mathew Yang MD Work Phone: [facility] Comment on above: Appointment Start: 10-15-2022 ambulatory PRIYANKA Muse ity:[facility] Start: 10-15-2022 End: 10-15-2022 Subsequent hospital visit by physician [facility] 1 Work Phone: Molecular Imaging Comment on above: Hydronephrosis with ureteropelvic junction (UPJ) obstruction [Q62.11] Start: 10-13-2022 End: 10-13-2022 ambulatory Lala Joseph GARMENT PARTS CUTTER MACHINE.PARTY BUS DRIVER Work Phone: URO/Gynecology Comment on above: Nocturia (Primary Dx ); Urinary frequency; OAB (overactive bladder) Start: 10-13-2022 End: 10-13-2022 Telemedicine consultation with patient Lala Romero GARMENT PARTS CUTTER MACHINE.PARTY BUS DRIVER Work Phone: [facility] Start: 09-16-2022 End: 09-16-2022 Nursing evaluation of patient and report [employer] Sales Manager Nurse [place] Work Phone: [facility] Comment on above: OAB (overactive blad jeanette) (Primary Dx) Start: 08-20-2022 End: 08-20-2022 Patient encounter procedure Priyanka Smith MD Work Phone: Family Medicine [place] Comment on above: Bronchitis (Primary Dx); ILD (interstitial lung disease) ([facility]); Subacute cough Start: 08-19-2022 Refill Rowan Temple MD Work Phone: Pulmonary Medicine Comment on above: Refill Request Start: 08-12-2022 End: 08-12-2022 Subsequent hospital visit by physician Griselda [facility] [place] Work Phone: Radiology Comment on above: Acute cough [R05.1] Start: 08-12-2022 End: 08-12-2022 Office outpatient visit 25 minutes Guillermo Mccormick GARMENT PARTS CUTTER MACHINE.PARTY BUS DRIVER Work Phone: [place] [facility] Comment on above: Acute cough (Primary Dx); Sinobronchitis Start: 08-12-2022 Telephone encounter Guillermo Lalit monaelashellrosalina MADRIGAL Work Phone: [facility] Comment on above: Results Start: 08-11-2022 ambulatory MATHWE CHERRY JR Facility:[facility] Start: 08-11-2022 End: 08-11-2022 Subsequent hospital visit by physician [facility] Work Phone: Radiology Comment on above: Kidney stone [N20.0] Start: 08-11-2022 End: 08-11-2022 Patient encounter procedure Mathew Yang MD Work Phone: Urology Comment on above: Kidney stone (Primar y Dx); 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; Hydronephrosis with ureteropelvic junction (UPJ) obstruction Start: 07-24-2022 Documentation procedure Mammog ruthie Coordinator [facility] Start: 07-24-2022 Letter encounter Mammography Coordinator [facility] Department Start: 07-23-2022 End: 07-23-2022 Subsequent hospital visit by physician Screen Mammo [facility] Mammogram Comment on above: Encounter for screen ing mammogram for breast cancer [Z12.31] Start: 07-01-2022 End: 07-01-2022 Patient encounter procedure Brandi EASLEY Work Phone: [facility] Comment on above: Sore throat (Primary Dx); Fever, unspecified fever cause Start: 06-22-2022 End: 06-22-2022 Patient encounter procedure Priyanka Smith MD Work Phone: [facility] Comment on above: Acquired hypothyroid ism (Primary Dx); Brad infection; Need for vaccination; ILD (interstitial lung disease) ([facility]) Start: 06-17-2022 Manual pelvic examination Vic Mg MD Work Phone: Urogynecology Comment on above: Acquired hydronephro sis with ureteropelvic junction (UPJ) obstruction (Primary Dx) Start: 06-12-2022 Refill Priyanka rausch MD Work Phone: [facility] [place] Comment on above: Refill Request Start: 06-09-2022 End: 06-09-2022 Subsequent hospital visit by physician Ct [facility] (I-Stat) Work Phone: Cat Scan Comment on above: Gross hematuria [R31 .0] Start: 05-29-2022 Telephone encounter John hansen MD Work Phone: [facility] Comment on above: Future Appointment ( Cystoscopy possible Botox) Start: 05-26-2022 Telephone encounter German Tran x GARMENT PARTS CUTTER MACHINE.PARTY BUS DRIVER Work Phone: Urogynecology Comment on above: Results Start: 05-22-2022 End: 05-22-2022 ambulatory Proc Shared Work Phone: [facility] Start: 05-22-2022 End: 05-22-2022 Patient encounter procedure Proc Rm Owens Shared Work Phone: [facility] Start: 04-21-2022 Refill Eduard Franklin DO Work Phone: Gastroenterology Comment on above: Refill Request (Nyst atin) Start: 04-17-2022 End: 04-17-2022 Patient encounter procedure Rowan Temple MD Work Phone: Pulmonary Medicine Comment on above: 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); High risk medication use Start: 04-11-2022 Refill Rowan Temple MD Work Phone: Pulmonary Medicine Comment on above: Refill Request Start: 04-08-2022 Orders Only Rowan Temple MD Work Phone: Pulmonary Medicine Comment on above: 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) Start: 2022 End: 2022 Subsequent hospital visit by physician Ct [facility] (I-Stat) Work Phone: Cat Scan Start: 04-03-2022 Telephone encounter Cleo ramos GARMENT PARTS CUTTER MACHINE.PARTY BUS DRIVER Work Phone: [facility] Comment on above: Results Start: 04-02-2022 End: 04-02-2022 Patient encounter procedure Genie Olson GARMENT PARTS CUTTER MACHINE.PARTY BUS DRIVER Work Phone: [facility] Comment on above: Urinary frequency (P rimary Dx) Start: 03-31-2022 Refill Muriel Rm preethi GARMENT PARTS CUTTER MACHINE.CNM Work Phone: OB/Gynecology Comment on above: Refill Request Start: 03-27-2022 Telephone encounter John hansen MD Work Phone: [facility] Comment on above: Future Appointment ( Schedule UDS) Start: 03-24-2022 ambulatory John swenson MD Work Phone: [facility] Comment on above: Medication Start: 03-23-2022 Telephone encounter Tariq beverly GARMENT PARTS CUTTER MACHINE.PARTY BUS DRIVER Work Phone (unformatted): [phone] [facility] Comment on above: Results Start: 03-16-2022 End: 03-16-2022 Patient encounter procedure John Mg MD Work Phone: [facility] Comment on above: Acute cystitis with hematuria (Primary Dx); Cystocele, midline; Urinary urgency; Urinary frequency; Overactive bladder Start: 03-05-2022 E-mail encounter fro m caregiver [facility] Provider RIVERA QUI[facility]ONEZ [facility] Start: 03-05-2022 Follow-up encounter [facility] Provider O[facility] thalmology Comment on above: Dr. Franklin Follow Up Start: 03-04-2022 Refill Eduard Franklin DO Work Phone: Gastroenterology Comment on above: Refill Request (Nyst atin) Start: 02-23-2022 End: 02-23-2022 Orders Only Rowan Temple MD Work Phone: Pulmonary Medicine Comment on above: Lung nodules (Primar y Dx) Start: 02-20-2022 ambulatory Rowan Temple MD Work Phone: Pulmonary Medicine Comment on above: Dexa Scan Bone Densi ty Steroid-induced oste openia (Primary Dx) Dosage Start: 02-20-2022 E-mail encounter sallie huitron caregiver Rowan Temple MD Work Phone: [facility] Start: 02-16-2022 End: 02-16-2022 Patient encounter procedure Rowan Temple MD Work Phone: Pulmonary Medicine Comment on above: 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); Ground glass opacity present on imaging of lung; Encounter for screening for osteoporosis; director 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 steroids; [facility] current use of immunosuppressive drug Start: 02-13-2022 Telephone encounter Priyanka toro MD Work Phone: NOC Comment on above: Appointment Start: 12-25-2021 ambulatory Muriel oro APRN.CNM Work Phone: OB/Gynecology Comment on above: Use of vaginal cream Start: 12-22-2021 End: 12-22-2021 Nursing evaluation of patient and report Mi Nurse Work Phone: [facility] Comment on above: Need for vaccination (Primary Dx) Start: 12-19-2021 End: 12-19-2021 Patient encounter procedure Priynaka Smith MD Work Phone: [facility] Comment on above: Hypothyroidism, unsp ecified type (Primary Dx); Chronic constipation; Essential tremor; OAB (overactive bladder); Low sodium levels; ILD (interstitial lung disease) (HCC); 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); Thymoma, malignant (HCC); Brad esophagitis (HCC); Medication monitoring encounter Start: 12-12-2021 Refill Gerri Samaniego PA-C Work Phone: Pulmonary Medicine Comment on above: Refill Request Start: 12-01-2021 End: 12-01-2021 Subsequent hospital visit by physician [facility] Work Phone: Radiology Comment on above: Cystocele, midline [ N81.11] Start: 11-26-2021 End: 11-26-2021 Refill Mathew Yang MD Work Phone: [facility] Comment on above: Refill Request Cystocele, midline ( Primary Dx); Encounter for gynecological examination (general) (routine) without abnormal findings; Encounter for screening mammogram for breast cancer; Urinary urgency; Urinary frequency; Vaginal atrophy Start: 11-26-2021 End: 11-26-2021 Patient encounter status Muriel Lopez GARMENT PARTS CUTTER MACHINE.CNM Work Phone: OB/Gynecology Start: 11-18-2021 Telephone encounter Priyanka toro MD Work Phone: [facility] Comment on above: Orders Start: 11-05-2021 End: 11-05-2021 Patient encounter procedure Cleo Maynard GARMENT PARTS CUTTER MACHINE.CNM Work Phone: OB/Gynecology Comment on above: Urinary urgency (Karyn michele Dx); Overactive bladder Start: 08-12-2021 End: 08-12-2021 ambulatory [facility] Work Phone: Pul[facility] Medicine Comment on above: Spirometry Start: 08-12-2021 End: 08-12-2021 Patient encounter procedure Respiratory Therapist [facility] Work Phone: [facility] Comment on above: 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); Antisynthetase syndrome (HCC); Esophageal dysmotility; History of immunosuppressive therapy; Interstitial pulmonary disease (HCC) Start: 08-06-2021 ambulatory Priyanka rausch MD Work Phone: [facility] Comment on above: Omeprazole Start: 06-26-2020 End: 06-26-2020 Subsequent hospital visit by physician Xr [facility] [place] Work Phone: Radiology Comment on above: Acute right ankle pa in [M25.571] Procedures Date Procedure Procedure Detail Performing Clinician Start: 01-31-2024 Lipid 1996 panel - S aimee or Plasma Wiley Benitez MD Work Phone: Start: 12-28-2023 Adult depression screening assessment Jacqueline Carpenter APRN.PARTY BUS DRIVER Work Phone: Start: 12-01-2023 Urnls dip stick/tabl et rgnt auto w/o microscopy Wiley Benitez MD Work Phone: Start: 11-09-2023 Urnls dip stick/tabl et rgnt auto w/o microscopy Mathew Yang MD Work Phone: Start: 09-02-2023 Urnls dip stick/tabl et rgnt auto w/o microscopy Tariq Barley GARMENT PARTS CUTTER MACHINE.PARTY BUS DRIVER Work Phone (unformatted): [phone] Start: 02-25-2023 Urnls dip stick/tabl et rgnt auto w/o microscopy Tariq Barley GARMENT PARTS CUTTER MACHINE.PARTY BUS DRIVER Work Phone (unformatted): [phone] Start: 02-24-2023 [employer] COVI D-19 VACCINE (2022- SEASON) AGE 12+ YR Guillermo Croft MD Work Phone: Start: 02-24-2023 INFLUENZA VACCINE, A GE 6 MO - 64 YR, QUADRIVALENT (AFLURIA, FLULAVAL, FLUZONE) Guillermo Croft MD Work Phone: Start: 11-16-2022 Spmtry w/vc expirato ry anya w/wo mxml vol vntj Rowan Temple MD Work Phone: Start: 10-27-2022 Ct thorax w/o contra st material Rowan Temple MD Work Phone: Start: 10-15-2022 Kidney img morpholog y vascular flow 1 w/rx Mathew Yang MD Work Phone: Start: 08-12-2022 Radiologic exam ches t 2 views Guillermo Mccormick GARMENT PARTS CUTTER MACHINE.PARTY BUS DRIVER Work Phone: Start: 08-11-2022 Radiologic exam abdo men 1 view Mathew Yang MD Work Phone: Start: 07-23-2022 CHYNA SCREENING W KOBE Co sabrina Peterchasidy GARMENT PARTS CUTTER MACHINE.CNM Work Phone: Start: 07-23-2022 Mammography Mammograph y Coordinator Start: 02-15-2023 STREP A MOLECULAR (POC) Erin Aguirre PA-C Work Phone: Start: 06-09-2022 Ct abdomen & pelvis w/o contrst 1/> body re John Mg MD Work Phone: Start: 05-22-2022 Urnls dip stick/tabl et rgnt auto w/o microscopy [facility] Provider Start: 2022 Ct thorax w/o contra st material Rowan Temple MD Work Phone: Start: 04-02-2022 Urnls dip stick/tabl et rgnt auto w/o microscopy Genie Olson APRN.PARTY BUS DRIVER Work Phone: Start: 03-16-2022 Culture bacterial quanttative colony count urine John Mg MD Work Phone: Start: 03-16-2022 Urnls dip stick/tabl et rgnt auto w/o microscopy John Mg MD Work Phone: Start: 12-22-2021 [employer] COVI D-19 VACCINE, AGE 12+ YR ([employer]) Priyanka Smith MD Work Phone: Start: 12-19-2021 Adult depression screening assessment Priyanka Smith MD Work Phone: Start: 12-01-2021 Us transvaginal Kenisha Lopez GARMENT PARTS CUTTER MACHINE.CNM Work Phone: Start: 11-26-2021 Urnls dip stick/tabl et rgnt auto w/o microscopy Cleo Maynard GARMENT PARTS CUTTER MACHINE.CNM Work Phone: Start: 11-05-2021 Urnls dip stick/tabl et rgnt auto w/o microscopy Cleo Maynard GARMENT PARTS CUTTER MACHINE.CNM Work Phone: Start: 08-12-2021 Spmtry w/vc expirato ry anya w/wo mxml vol vntj Gumaro Cuenca MD Work Phone: Start: 06-26-2021 Mammography Priyanka kelly MD Work Phone: Start: 12-16-2020 Adult depression screening assessment Priyanka Smith MD Work Phone: Start: 06-26-2020 Radex ankle complete minimum 3 views Harsha Swenson MD Work Phone: Start: 08-29-2019 Lipid 1996 panel - S aimee or Plasma Rowan Temple MD Work Phone: Start: 12-22-2017 Colonoscopy Priyanka kelly MD Work Phone: Plan of Treatment Date Care Activity Detail Author Start: 03-01-2033 Urine microalbumin profile DTaP,Tdap,Td Vaccine (4 - Td or Tdap) [facility] Start: 01-30-2029 Lipid panel Lipid Screening [facility] Start: 12-23-2027 Colonoscopy COLONOSCOPY [facility] Start: 12-23-2027 COLORECTAL CANCER SCREENING COLORECTAL CANCER SCREENING [facility] Start: 12-23-2027 Screening for malignant neoplasm of colon [facility] Start: 01-30-2027 Diabetes Screening Diabetes Screening [facility] Start: 12-15-2026 Diabetes Screening Diabetes Screening [facility] Start: 06-11-2026 Diabetes Screening Diabetes Screening [facility] Start: 11-02-2025 DIABETES SCREEN DIABETES SCREEN [facility] Start: 11-02-2025 Diabetes Screening Diabetes Screening [facility] Start: 05-23-2025 DIABETES SCREEN DIABETES SCREEN [facility] Start: 03-01-2025 Annual PCP Team Chronic Disease Visit Annual PCP Team Chronic Disease Visit [facility] Start: 01-30-2025 Creatinine measurement Serum Creatinine [facility] Start: 12-27-2024 Annual PCP Team Chronic Disease Visit Annual PCP Team Chronic Disease Visit [facility] Start: 12-27-2024 Anxiety Screening Anxiety Screening [facility] Start: 12-27-2024 Depression Screening Depression Screening [facility] Start: 12-27-2024 HIV screening HIV Screening [facility] Comment on above: Postponed from 1976 (Declined at t his time) Start: 12-26-2024 End: 12-26-2024 Patient encounter procedure 12/26/2024 9:00 AM EDT Office Visit Urology [address] [place] [address] Mathew Yang Jr., MD [address] [place] [address] 1 yr follow up Urology Comment on above: 1 yr follow up Start: 12-20-2024 End: 01-19-2025 XR Abdomen Supine and Upright XR ABDOMEN 1V SUPINE Radiology Routine Kidney stone Expected: 12/20/2024, Expires: 01/19/2025 [facility] Work Phone: Comment on above: Expected: 12/20/2024, Expires: Start: 12-20-2024 End: 12-20-2024 Patient encounter procedure 12/20/2024 8:00 AM EDT Appointment Radiology [address] [place] [address] Kidney stone [N20.0] Radiology Comment on above: Kidney stone [N20.0] Start: 12-15-2024 Complete blood count Hemoglobin/Hematocrit [facility] Start: 12-15-2024 Creatinine measurement Serum Creatinine [facility] Start: 12-04-2024 DIABETES SCREEN DIABETES SCREEN [facility] Start: 11-28-2024 End: 11-28-2024 Patient encounter procedure 11/28/2024 8:15 AM EDT Office Visit OB/Gynecology [address] [place] [address] Muriel Lopez APRN.CNM [address] [place] [address] Annual OB/Gynecology Comment on above: Annual Start: 10-13-2024 Annual PCP Team Chronic Disease Visit Annual PCP Team Chronic Disease Visit [facility] Start: 08-28-2024 Lipid 1996 panel - Serum or Plasma Lipid Screening [facility] Start: 08-28-2024 Lipid panel Lipid Screening [facility] Start: 08-28-2024 LIPID SCREEN LIPID SCREEN [facility] Start: 08-21-2024 End: 08-21-2024 Patient encounter procedure 08/21/2024 9:10 AM EDT Appointment Mammogram [address] [place] [address] Encounter for screening mammogram for breast cancer [Z12.31] Mammogram Comment on above: Encounter for screening mammogram for br east cancer [Z12.31] Start: 08-17-2024 Screening for malignant neoplasm of breast Mammogram Screening [facility] Start: 08-03-2024 End: 08-03-2024 Patient encounter procedure 08/03/2024 11:00 AM EDT Office Visit Neurology [address] [id number] Avtar Roberts MD [address] [place] [address] 6 month follow up Neurology Comment on above: 6 month follow up Start: 07-10-2024 End: 07-10-2024 Patient encounter procedure 07/10/2024 10:00 AM EST Office Visit [facility] [address] [place], [place] [id number] Jacqueline Carpenter APRN.PARTY BUS DRIVER [address] [place], [place] [id number] medicare wellness [facility] [place] Comment on above: medicare wellness Start: 06-29-2024 End: 09-28-2024 CBC W Auto Differential panel - Blood COMPLETE BLOOD COUNT AND DIFFERENTIAL Lab Routine ILD (interstitial lung disease) (HCC) Expected: 06/29/2024, Expires: 09/28/2024 [facility] Comment on above: Expected: 06/29/2024, Expires: Start: 06-29-2024 End: 09-28-2024 Comprehensive metabolic 2000 panel - Serum or Plasma COMPREHENSIVE METABOLIC PANEL Lab Routine Low sodium levels Expected: 06/29/2024, Expires: 09/28/2024 [facility] Comment on above: Expected: 06/29/2024, Expires: Start: 06-29-2024 End: 09-28-2024 Thyrotropin [Units/volume] in Serum or Plasma THYROID STIMULATING HORMONE Lab Routine Hypothyroidism, unspecified type Expected: 06/29/2024, Expires: 09/28/2024 [facility] Comment on above: Expected: 06/29/2024, Expires: Start: 06-29-2024 End: 09-28-2024 Thyroxine (T4) free [Mass/volume] in Serum or Plasma T4 FREE/FREE THYROXINE Lab Routine Hypothyroidism, unspecified type Expected: 06/29/2024, Expires: 09/28/2024 [facility] Comment on above: Expected: 06/29/2024, Expires: Start: 06-26-2024 End: 09-25-2024 Comprehensive metabolic 2000 panel - Serum or Plasma COMPREHENSIVE METABOLIC PANEL Lab Routine Function kidney decreased Expected: 06/26/2024, Expires: 09/25/2024 [facility] Work Phone: Comment on above: Expected: 06/26/2024, Expires: Start: 06-26-2024 End: 09-25-2024 Hemoglobin A1c in Blood HEMOGLOBIN A1C Lab Routine Prediabetes Expected: 06/26/2024, Expires: 09/25/2024 [facility] Comment on above: Expected: 06/26/2024, Expires: Start: 06-26-2024 End: 09-25-2024 Lipid 1996 panel - Serum or Plasma LIPID PANEL BASIC Lab Routine High triglycerides Expected: 06/26/2024, Expires: 09/25/2024 [facility] Comment on above: Expected: 06/26/2024, Expires: Start: 06-22-2024 Annual PCP Team Chronic Disease Visit Annual PCP Team Chronic Disease Visit [facility] Start: 06-11-2024 Creatinine measurement Serum Creatinine [facility] Start: 06-10-2024 DIABETES SCREEN DIABETES SCREEN [facility] Start: 05-08-2024 Complete blood count Hemoglobin/Hematocrit [facility] Start: 04-17-2024 End: 04-17-2024 Patient encounter procedure 04/17/2024 9:30 AM EST Office Visit Pulmonary Medicine [address] [place] [id number] Rowan Temple MD [address] [place] [address] 6 mo f/up Pulmonary Medicine Comment on above: 6 mo f/up Start: 03-16-2024 End: 03-16-2024 Patient encounter procedure 03/16/2024 9:00 AM EDT Office Visit Neurology [address] [facility] [address] [place] [phone] Tamiko Roberts, GARMENT PARTS CUTTER MACHINE.PARTY BUS DRIVER [address] [place] [address] TD, secondary PDism, 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 Neurology Comment on above: TD, secondary PDism, vs IPD Start: 03-06-2024 End: 03-06-2024 Patient encounter procedure 03/06/2024 9:40 AM EDT Office Visit Family [facility] [address] [place], [place] [phone] Jacqueline Carpenter, GARMENT PARTS CUTTER MACHINE.PARTY BUS DRIVER [address] [place] [address] BP check [facility] Comment on above: BP check Start: 03-03-2024 End: 03-03-2024 Patient encounter procedure 03/03/2024 10:00 AM EDT Office Visit URO/Gynecology [address] [place] [address] Wiley Benitez MD [address] [facility] [address] [place] [address] 6 week follow up URO/Gynecology Comment on above: 6 week follow up Start: 01-28-2024 End: 04-28-2024 Comprehensive metabolic 2000 panel - Serum or Plasma COMPREHENSIVE METABOLIC PANEL Lab Routine Stage 3a chronic kidney disease (HCC) Function kidney decreased Expected: 01/28/2024, Expires: 04/28/2024 [facility] Work Phone: Comment on above: Expected: 01/28/2024, Expires: Start: 01-20-2024 End: 01-20-2024 Patient encounter procedure 01/20/2024 8:00 AM EDT Office Visit Neurology [address] [facility] [address] [place] [phone] Avtar Roberts MD [address] [place] [address] Tremor [R25.1] Neurology Comment on above: Tremor [R25.1] Start: 01-16-2024 Covid-19 Vaccine ( season) Covid-19 Vaccine () [facility] Start: 01-16-2024 Covid-19 Vaccine () Covid-19 Vaccine () [facility] Start: 01-16-2024 Influenza vaccination Influenza Vaccine (#1) [facility] Start: 01-13-2024 End: 01-13-2024 Patient encounter procedure 01/13/2024 2:00 PM EDT Office Visit Neurology [address] [phone] Avtar Roberts MD [address] [place] [address] Tremor [R25.1] Neurology Comment on above: Tremor [R25.1] Start: 01-11-2024 End: 01-11-2024 Patient encounter procedure 01/11/2024 11:00 AM EDT Office Visit URO/Gynecology [address] [place] [address] Wiley Benitez MD [address] [facility] [address] [place] [address] one month follow up URO/Gynecology Comment on above: one month follow up Start: 12-28-2023 End: 03-28-2024 Hemoglobin A1c in Blood HEMOGLOBIN A1C Lab Routine Elevated glucose Expected: 12/28/2023, Expires: 03/28/2024 [facility] Comment on above: Expected: 12/28/2023, Expires: Start: 12-28-2023 End: 03-28-2024 Lipid 1996 panel - Serum or Plasma LIPID PANEL BASIC Lab Routine Obesity, Class I, BMI 30-34.9 Expected: 12/28/2023, Expires: 03/28/2024 [facility] Comment on above: Expected: 12/28/2023, Expires: Start: 12-28-2023 End: 12-28-2023 Patient encounter procedure 12/28/2023 7:20 AM EDT Office Visit [facility] [address] [facility] [address] Jacqueline Carpenter APRN.PARTY BUS DRIVER [address] [place] [address] 6 mo f/u [facility] Comment on above: 6 mo f/u Start: 12-23-2023 ANNUAL PCP TEAM CHRONIC DISEASE VISIT ANNUAL PCP TEAM CHRONIC DISEASE VISIT [facility] Start: 12-23-2023 HIV SCREENING HIV SCREENING [facility] Comment on above: Postponed from 1976 (Declined at t his time) Start: 12-23-2023 HIV screening HIV Screening [facility] Comment on above: Postponed from 1976 (Declined at t his time) Start: 12-23-2023 End: 12-21-2024 XR Abdomen Supine and Upright XR ABDOMEN 1V SUPINE Radiology Routine Kidney stone Expected: 12/23/2023, Expires: 12/21/2024 [facility] Work Phone: Comment on above: Expected: 12/23/2023, Expires: Start: 12-23-2023 End: 12-23-2023 Patient encounter procedure 12/23/2023 9:00 AM EDT Office Visit [facility] [address] [place] [address] Priyanka Smith MD [address] [place] [address] 6 mo f/u [facility] Comment on above: 6 mo f/u Start: 12-21-2023 End: 03-21-2024 Basic metabolic 2000 panel - Serum or Plasma BASIC METABOLIC PNL Lab Routine Low sodium levels Expected: 12/21/2023 (Approximate), Expires: 03/21/2024 [facility] Work Phone: Comment on above: Expected: 12/21/2023 (Approximate), Expi res: 03/21/2024 Start: 12-21-2023 End: 12-21-2023 Patient encounter procedure 12/21/2023 2:00 PM EDT Office Visit Urology [address] [address] Mathew Yang Jr., MD [address] [place], [place] [address] post-op and kub prior--ok'd by jay [facility] Comment on above: post-op and kub prior--ok'd by jay Start: 12-21-2023 End: 03-21-2024 Thyrotropin [Units/volume] in Serum or Plasma TSH BLD Lab Routine Hypothyroidism, unspecified type Expected: 12/21/2023 (Approximate), Expires: 03/21/2024 [facility] Work Phone: Comment on above: Expected: 12/21/2023 (Approximate), Expi res: 03/21/2024 Start: 12-01-2023 End: 12-01-2023 Patient encounter procedure 12/01/2023 1:30 PM EDT Office Visit [facility] [address] [facility] [address] [place] [address] Wiley Benitez MD [address] [facility] [address] [place] [address] Cysto with Botox approved for 200units [facility] Comment on above: Cysto with Botox approved for 200units Start: 11-29-2023 End: 11-29-2023 Patient encounter procedure 11/29/2023 8:15 AM EDT Office Visit OB/Gynecology [address] [place], [place] [phone] Muriel Lopez APRN.CN [address] [place] [address] annual OB/Gynecology Comment on above: annual Start: 11-22-2023 End: 11-22-2023 Admission to same day surgery center 11/22/2023 8:00 AM EDT - 11/22/2023 9:30 AM EDT Surgery [facility] [address] [place] [address] [place] [address] [place] [address] EXTRACORPOREAL SHOCKWAVE LITHOTRIPSY UNILATERAL [facility] Comment on above: EXTRACORPOREAL SHOCKWAVE LITHOTRIPSY UNI LATERAL Start: 11-22-2023 End: 11-22-2023 Lithotripsy [facility] [place] [facility] Start: 11-22-2023 Subsequent hospital visit by physician 11/22/2023 8:00 AM EDT Hospital Encounter [facility] [address] [place] [address] [place] [address] [place] [address] [id number] Renal calculus, right [N20.0] [facility] Comment on above: Renal calculus, right [N20.0] Start: 11-09-2023 End: 11-09-2023 Patient encounter procedure 11/09/2023 9:00 AM EDT Office Visit Urology [address] [place] [id number] [place] [address] [place] [address] [phone] 1y follow up Urology Comment on above: 1y follow up Start: 11-04-2023 End: 12-03-2023 XR ABDOMEN 1V SUPINE XR ABDOMEN 1V SUPINE Radiology Routine Kidney stone Expected: 11/04/2023, Expires: 12/03/2023 [facility] Work Phone: Comment on above: Expected: 11/04/2023, Expires: Start: 11-04-2023 End: 11-04-2023 Patient encounter procedure 11/04/2023 8:00 AM EDT Appointment Radiology [address] [address] kidney stones Radiology Comment on above: kidney stones Start: 11-03-2023 HEMOGLOBIN/HEMATOCRIT HEMOGLOBIN/HEMATOCRIT [facility] Start: 11-03-2023 SERUM CREATININE SERUM CREATININE [facility] Start: 11-03-2023 End: 11-03-2023 Patient encounter procedure 11/03/2023 1:30 PM EDT Office Visit [facility] [address] [facility] [address] [place] [address] Wiley Benitez MD [address] [facility] [address] [place] [address] Cystoscopy with BOTOX [facility] Comment on above: Cystoscopy with BOTOX Start: 11-02-2023 End: 11-02-2023 Patient encounter procedure 11/02/2023 8:20 AM EDT Appointment Cat Scan [address] [place] [address] Routine Cat Scan Comment on above: Routine Start: 11-01-2023 End: 10-15-2024 CT Chest WO contrast CT CHEST WO IVCON Radiology Routine Expected: 11/01/2023, Expires: 10/15/2024 [facility] Work Phone: Comment on above: Expected: 11/01/2023, Expires: Start: 09-16-2023 End: 12-16-2023 CBC panel - Blood by Automated count COMPLETE BLOOD COUNT Lab Routine Expected: 09/16/2023, Expires: 12/16/2023 [facility] Comment on above: Expected: 09/16/2023, Expires: Start: 09-16-2023 End: 12-16-2023 Hepatic function 2000 panel - Serum or Plasma HEPATIC FUNCTION PNL Lab Routine Expected: 09/16/2023, Expires: 12/16/2023 [facility] Comment on above: Expected: 09/16/2023, Expires: Start: 09-16-2023 End: 09-16-2023 Patient encounter procedure 09/16/2023 1:15 PM EDT Office Visit Pulmonary Medicine [address] [place] [address] Rowan Temple MD [address] [place] [address] 6 month follow up Pulmonary Medicine Comment on above: 6 month follow up Start: 08-24-2023 HPV TESTING HPV TESTING [facility] Start: 08-24-2023 PAP TESTING PAP TESTING [facility] Start: 08-21-2023 ANNUAL PCP TEAM CHRONIC DISEASE VISIT ANNUAL PCP TEAM CHRONIC DISEASE VISIT [facility] Start: 07-24-2023 Mammography [facility] Start: 07-24-2023 Screening for malignant neoplasm of breast Mammogram Screening [facility] Start: 06-24-2023 End: 08-24-2023 Basic metabolic 2000 panel - Serum or Plasma BASIC METABOLIC PNL Lab Routine Low sodium levels Expected: 06/24/2023 (Approximate), Expires: 08/24/2023 [facility] Work Phone: Comment on above: Expected: 06/24/2023 (Approximate), Expi res: 08/24/2023 Start: 06-24-2023 End: 08-24-2023 Thyrotropin [Units/volume] in Serum or Plasma TSH BLD Lab Routine Hypothyroidism, unspecified type Expected: 06/24/2023 (Approximate), Expires: 08/24/2023 [facility] Work Phone: Comment on above: Expected: 06/24/2023 (Approximate), Expi res: 08/24/2023 Start: 06-22-2023 ANNUAL PCP TEAM CHRONIC DISEASE VISIT ANNUAL PCP TEAM CHRONIC DISEASE VISIT [facility] Start: 05-17-2023 Behavioral Health Screening Behavioral Health Screening [facility] Start: 04-21-2023 Covid-19 Vaccine () Covid-19 Vaccine () [facility] Start: 01-15-2023 Influenza vaccination [facility] Start: 12-20-2022 End: 02-19-2023 Thyrotropin [Units/volume] in Serum or Plasma TSH BLD Lab Routine Acquired hypothyroidism Expected: 12/20/2022, Expires: 02/19/2023 [facility] Work Phone: Comment on above: Expected: 12/20/2022, Expires: 3 Start: 12-19-2022 Adult depression screening assessment DEPRESSION SCREENING [facility] Start: 12-19-2022 ANNUAL PCP TEAM CHRONIC DISEASE VISIT ANNUAL PCP TEAM CHRONIC DISEASE VISIT [facility] Start: 12-19-2022 HIV SCREENING HIV SCREENING [facility] Comment on above: Postponed from 1976 (Declined at t his time) Start: 10-16-2022 End: 05-17-2023 Ct thorax w/o contrast material CT CHEST WO IVCON Radiology Routine NSIP (nonspecific interstitial pneumonia) (HCC) Expected: 10/16/2022, Expires: 05/17/2023 [facility] Work Phone: Comment on above: Expected: 10/16/2022, Expires: 4 Start: 06-26-2022 Mammography MAMMOGRAM [facility] Start: 06-21-2022 End: 08-21-2022 CBC W Auto Differential panel - Blood CBC + DIFF Lab Routine Hypothyroidism, unspecified type ILD (interstitial lung disease) (HCC) Medication monitoring encounter Expected: 06/21/2022 (Approximate), Expires: 08/21/2022 [facility] Work Phone: Comment on above: Expected: 06/21/2022 (Approximate), Expi res: 08/21/2022 Start: 06-21-2022 End: 08-21-2022 Comprehensive metabolic 2000 panel - Serum or Plasma COMP METABOLIC PANEL Lab Routine Hypothyroidism, unspecified type ILD (interstitial lung disease) (HCC) Medication monitoring encounter Expected: 06/21/2022 (Approximate), Expires: 08/21/2022 [facility] Work Phone: Comment on above: Expected: 06/21/2022 (Approximate), Expi res: 08/21/2022 Start: 06-21-2022 End: 08-21-2022 Thyrotropin [Units/volume] in Serum or Plasma TSH BLD Lab Routine Hypothyroidism, unspecified type Expected: 06/21/2022 (Approximate), Expires: 08/21/2022 [facility] Work Phone: Comment on above: Expected: 06/21/2022 (Approximate), Expi res: 08/21/2022 Start: 06-18-2022 ANNUAL PCP TEAM CHRONIC DISEASE VISIT ANNUAL PCP TEAM CHRONIC DISEASE VISIT [facility] Start: 05-17-2022 DEPRESSION ASSESSMENT DEPRESSION ASSESSMENT [facility] Start: 05-01-2022 COVID-19 VACCINE (5 - Aristides risk series) COVID-19 VACCINE (5 - Aristides risk series) [facility] Start: 04-23-2022 COVID-19 VACCINE (4 - Booster for Aristides series) COVID-19 VACCINE (4 - Booster for Aristides series) [facility] Start: 04-21-2022 PNEUMOCOCCAL (2 - PCV) PNEUMOCOCCAL (2 - PCV) [facility] Start: 04-08-2022 End: 06-08-2022 CBC panel - Blood by Automated count CBC Lab Routine NSIP (nonspecific interstitial pneumonia) (HCC) Expected: 04/08/2022, Expires: 06/08/2022 [facility] Work Phone: Comment on above: Expected: 04/08/2022, Expires: 3 Start: 04-08-2022 End: 06-08-2022 Comprehensive metabolic 2000 panel - Serum or Plasma COMP METABOLIC PANEL Lab Routine NSIP (nonspecific interstitial pneumonia) (HCC) Expected: 04/08/2022, Expires: 06/08/2022 [facility] Work Phone: Comment on above: Expected: 04/08/2022, Expires: 3 Start: 2022 End: 03-18-2023 Ct thorax w/o contrast material CT CHEST WO IVCON Radiology Routine Expected: 2022, Expires: 03/18/2023 [facility] Work Phone: Comment on above: Expected: 2022, Expires: 3 Start: 02-20-2022 End: 04-22-2022 25-hydroxyvitamin D3 [Mass/volume] in Serum or Plasma VITAMIN D 25 HYDROXY Lab Routine Steroid-induced osteopenia Expected: 02/20/2022, Expires: 04/22/2022 [facility] Work Phone: Comment on above: Expected: 02/20/2022, Expires: 2 Start: 02-16-2022 COVID-19 VACCINE (4 - Booster for Aristides series) COVID-19 VACCINE (4 - Booster for Aristides series) [facility] Start: 02-12-2022 End: 09-11-2022 Ct thorax w/o contrast material CT CHEST WO IVCON Radiology Routine Interstitial pulmonary disease (HCC) Expected: 02/12/2022, Expires: 09/11/2022 [facility] Work Phone: Comment on above: Expected: 02/12/2022, Expires: 3 Start: 01-15-2022 Influenza vaccination INFLUENZA (#1) [facility] Start: 12-16-2021 Adult depression screening assessment DEPRESSION SCREENING [facility] Start: 07-31-2021 SHINGRIX VACCINE (2 of 2) SHINGRIX VACCINE (2 of 2) [facility] Start: 06-02-2021 COVID-19 VACCINE (3 - Booster for Aristides series) COVID-19 VACCINE (3 - Booster for Aristides series) [facility] Start: 05-17-2021 DEPRESSION ASSESSMENT DEPRESSION ASSESSMENT [facility] Start: 04-29-2020 Urine microalbumin profile [facility] Start: 08-24-2019 Screening for malignant neoplasm of cervix Cervical Cancer Screening [facility] Start: 2018 RSV Vaccine (1 - 1-dose 60+ series) RSV Vaccine (1 - 1-dose 60+ series) [facility] Start: 2018 RSV Vaccine (1 - Risk 60-74 years 1-dose series) RSV Vaccine (1 - Risk 60-74 years 1-dose series) [facility] Start: 08-28-2015 FECAL OCCULT BLOOD FECAL OCCULT BLOOD [facility] Start: 08-28-2015 Screening for malignant neoplasm of colon Fecal Occult Blood [facility] Start: 2003 COLOGUARD (FIT-DNA) COLOGUARD (FIT-DNA) [facility] Start: [address] COLONOGRAPHY [facility] Start: 2003 Screening for malignant neoplasm of colon [facility] Start: 2003 SIGMOIDOSCOPY SIGMOIDOSCOPY [facility] Start: 1976 Anxiety Screening Anxiety Screening [facility] Start: 1976 Depression Screening Depression Screening [facility] Start: 1976 HIV SCREENING HIV SCREENING [facility] Bacteria identified in Urine by Culture URINE CULTURE Microbiology Routine Urinary urgency 11/05/2021 9:40 AM EDT [facility] Work Phone: Bacteria identified in Urine by Culture URINE CULTURE Microbiology Routine Urinary frequency Ordered: 04/02/2022 [facility] Work Phone: Comment on above: Ordered: 04/02/2022 Bacteria identified in Urine by Culture URINE CULTURE Microbiology Routine Post-operative state Urinary frequency 02/25/2023 10:54 AM [employer] [facility] Work Phone (unformatted): [phone] Bacteria identified in Urine by Culture URINE CULTURE Microbiology Routine Urinary frequency Dysuria 09/02/2023 9:01 AM [employer] [facility] Work Phone (unformatted): [phone] BRAD/TRICHOMONAS NAAT BRAD/TRICHOMONAS NAAT Lab Routine Vulvar burning 10/07/2023 9:23 AM [employer] [facility] Work Phone (unformatted): [phone] End: 08-12-2022 CBC W Auto Differential panel - Blood CBC + DIFF Lab Routine History of immunosuppressive therapy Every 6 months for 4 Occurrences starting 08/12/2021 until 08/12/2022 [facility] Work Phone: Comment on above: Every 6 months for 4 Occurrences startin g 08/12/2021 until 08/12/2022 CT Chest WO contrast CT CHEST WO IVCON Radiology Routine 11/02/2023 8:58 AM [employer] [facility] Work Phone: DBT Breast - bilater al screening CHYNA SCREENING W KOBE Radiology Routine Encounter for screening mammogram for malignant neoplasm of breast 08/18/2023 9:38 AM [employer] [facility] Work Phone: End: 12-28-2024 DBT Breast - bilateral screening CHYNA SCREENING W KOBE Radiology Routine Encounter for screening mammogram for breast cancer 1 Occurrences starting 11/29/2023 until 12/28/2024 [facility] Work Phone: Comment on above: 1 Occurrences starting 11/29/2023 until 12/28/2024 End: 03-18-2023 Dxa bone density study 1/> sites axial skel DXA-AXIAL SKELETON Radiology Routine director 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 steroids 1 Occurrences starting 02/16/2022 until 03/18/2023 [facility] Work Phone: Comment on above: 1 Occurrences starting 02/16/2022 until 03/18/2023 Hzv zoster vacc recombinant adjuvanted im njx ZOSTER VACC RECOMBINANT,IM Immunization/Injection Routine Need for vaccination Ordered: 11/18/2021 [facility] Work Phone: Comment on above: Ordered: 11/18/2021 End: 09-10-2023 Kidney img morphology vascular flow 1 w/rx NM RENAL FLOW/FXN W PHARM Radiology Routine Hydronephrosis with ureteropelvic junction (UPJ) obstruction 1 Occurrences starting 08/11/2022 until 09/10/2023 [facility] Work Phone: Comment on above: 1 Occurrences starting 08/11/2022 until 09/10/2023 End: 07-21-2024 CHYNA SCREENING CHYNA SCREENING Radiology Routine Encounter for screening mammogram for malignant neoplasm of breast 1 Occurrences starting 06/22/2023 until 07/21/2024 [facility] Work Phone: Comment on above: 1 Occurrences starting 06/22/2023 until 07/21/2024 End: 12-26-2022 CHYNA SCREENING W KOBE CHYNA SCREENING W KOBE Radiology Routine Encounter for screening mammogram for breast cancer 1 Occurrences starting 11/26/2021 until 12/26/2022 [facility] Work Phone: Comment on above: 1 Occurrences starting 11/26/2021 until 12/26/2022 SPIROMETRY BASELINE ONLY SPIROMETRY BASELINE ONLY PFT Routine NSIP (nonspecific interstitial pneumonia) ([facility]) 08/12/2021 1:37 PM EDT [facility] Work Phone: URODYNAMICS WHI URODYNAMICS WHI Procedures Routine Urinary urgency Urinary frequency Overactive bladder Ordered: 03/16/2022 [facility] Work Phone: Comment on above: Ordered: 03/16/2022 End: 12-27-2022 Us transvaginal US FEMALE PELVIS TRANSVAG Radiology Routine Cystocele, midline Urinary urgency Urinary frequency 1 Occurrences starting 11/26/2021 until 12/27/2022 [facility] Work Phone: Comment on above: 1 Occurrences starting 11/26/2021 until 12/27/2022 End: 09-10-2023 XR ABDOMEN 1V SUPINE XR ABDOMEN 1V SUPINE Radiology Routine Kidney stone 1 Occurrences starting 08/11/2022 until 09/10/2023 [facility] Work Phone: Comment on above: 1 Occurrences starting 08/11/2022 until 09/10/2023 XR ABDOMEN 1V SUPINE XR ABDOMEN 1V SUPINE Radiology Routine Kidney stone 08/11/2022 3:32 PM EDT [facility] Work Phone: XR Abdomen Supine an d Upright XR ABDOMEN 1V SUPINE Radiology Routine Kidney stone 11/04/2023 8:02 AM EDT [facility] Work Phone: XR Abdomen Supine an d Upright XR ABDOMEN 1V SUPINE Radiology Routine Kidney stone 11/29/2023 8:08 AM EDT [facility] Work Phone: End: 03-31-2025 XR Chest PA and Lateral XR CHEST 2V FRONTAL/LAT Radiology STAT Rib pain 1 Occurrences starting 03/01/2024 until 03/31/2025 [facility] Work Phone: Comment on above: 1 Occurrences starting 03/01/2024 until 03/31/2025 [facility] [place] [facility] OR [facility] Immunizations Immunization Date Immunization Notes Care Provider Fa jane 03-01-2023 tetanus toxoid, redu yessica diphtheria toxoid, and acellular pertussis vaccine, adsorbed Mi Nurse Work Phone: [facility] Work Phone: 02-24-2023 COVID-19 vaccine, ag e 12+ yr, 2022- season (PFIZER-BIONTECH) Immunization [place] Work Phone: [facility] Work Phone: 02-24-2023 influenza, injectabl e, quadrivalent, contains preservative Immunization [place] Work Phone: [facility] Work Phone: 02-24-2023 influenza virus vaccine, unspecified formulation Mathew Yang Jr., MD Work Phone: [facility] 06-22-2022 pneumococcal Conjuga te, unspecified formulation Priyanka Smith MD Work Phone: [facility] Work Phone: 06-22-2022 pneumococcal (PCV20) vaccine, 20 valent (PREVNAR 20) Priyanka Smith MD Work Phone: [facility] 03-06-2022 COVID-19 booster vaccine, age 12+ yr, bivalent (PFIZER-BIONTECH) Tariq Brooks APRN.PARTY BUS DRIVER Work Phone (unformatted): [phone] [facility] Work Phone: 03-06-2022 influenza, injectabl e, quadrivalent, contains preservative Tariq Brooks APRN.PARTY BUS DRIVER Work Phone (unformatted): [phone] [facility] Work Phone: 03-06-2022 influenza virus vaccine, unspecified formulation Rowan Temple MD Work Phone: [facility] 12-22-2021 COVID-19 vaccine, ag e 12+ yr (PFIZER-BIONTECH - [facility]) Ar Nurse Work Phone: [facility] Work Phone: 12-04-2021 zoster vaccine recombinant Gerri Cruz PA-C Work Phone: [facility] Work Phone: 06-05-2021 zoster vaccine recombinant Priyanka Smith MD Work Phone: [facility] Work Phone: 04-21-2021 pneumococcal polysaccharide vaccine, 23 valent Priyanka Smith MD Work Phone: [facility] Work Phone: 03-08-2021 influenza, injectabl e, quadrivalent, contains preservative Priyanka Smith MD Work Phone: [facility] Work Phone: 07-22-2020 COVID-19 vaccine (ARISTIDES) Priyanka Smith MD Work Phone: [facility] 03-04-2020 influenza, injectabl e, quadrivalent, contains preservative Priyanka Smith MD Work Phone: [facility] 02-28-2019 influenza, injectabl e, quadrivalent, contains preservative Priyanka Smith MD Work Phone: [facility] 03-28-2018 influenza, injectabl e, quadrivalent, preservative free Priyanka Smith MD Work Phone: [facility] 03-08-2018 influenza, seasonal, injectable, preservative free Priyanka Smith MD Work Phone: [facility] 04-19-2017 influenza, injectabl e, quadrivalent, contains preservative Priyanka Smith MD Work Phone: [facility] 04-17-2014 influenza, seasonal, injectable Priyanka Smith MD Work Phone: [facility] 05-26-2013 influenza virus vaccine, unspecified formulation Priyanka Smith MD Work Phone: [facility] 02-11-2012 influenza virus vaccine, unspecified formulation Priyanka Smith MD Work Phone: [facility] 04-29-2010 diphtheria, tetanus toxoids and acellular pertussis vaccine Priyanka Smith MD Work Phone: [facility] 08-05-2009 tetanus toxoid, redu yessica diphtheria toxoid, and acellular pertussis vaccine, adsorbed Priyanka Smith MD Work Phone: [facility] 08-05-2009 tuberculin skin test ; purified protein derivative solution, intradermal Wiley Benitez MD Work Phone: [facility] Payers Date Payer Category Payer Medicare MMO MEDICARE MMO [employer]ANT[employer] HMO [id number] 2023-Present [phone] [address] [place] [address] O [id number] 2023 Unknown [id number] 2022 Medicaid [id number] 2022 Medicaid [id number] 2020 Medicaid [employer] [id number] 2020-Present [phone] [address] [place] [address] Medicaid [id number] 2020 Medicaid [id number] Social History Date Type Detail Facility Start: 01-04-2020 End: 11-09-2023 Tobacco smoking status NHIS Never smoked tobacco [facility] Start: 06-18-2021 End: 03-01-2024 Alcohol intake Current drinker of alcohol (finding) [facility] Start: 01-04-2020 End: 06-02-2020 History SDOH Alcohol Frequency 2 [facility] Start: 01-04-2020 End: 06-02-2020 History SDOH Alcohol Std Drinks 1 [facility] Start: 03-01-2020 History SDOH Social Connections Phone 4 [facility] Start: 09-03-2019 History SDOH Social Connections Living 5 [facility] Start: 09-03-2019 History SDOH Physica l Activity DPW 0 [facility] Start: 09-03-2019 Education 17 [facility] Start: 01-04-2020 End: 02-16-2022 Tobacco Comment No one in household smokes. Smoker in childhood home. [facility] Start: 1960 Sex Assigned At Not on file C [facility] Start: 05-27-2020 End: 04-17-2022 Exposure to SARS-CoV-2 (event) Not sure [facility] Start: 01-04-2020 End: 11-09-2023 Tobacco use and exposure Smokeless tobacco non-user [facility] Work Phone: Start: 02-13-2022 End: 02-23-2022 Exposure to SARS-CoV-2 (event) Unable to assess [facility] Start: 09-16-2022 End: 11-16-2022 History of Social function [facility] Work Phone: Start: 09-16-2022 End: 11-16-2022 Tobacco use panel [facility] Work Phone: Adult Depression Screening Assessment 0 [facility] Work Phone: How often to you hav e a drink containing alcohol? Monthly or less [facility] Work Phone: How many standard drinks containing alcohol do you have on a typical day? 1 or 2 [facility] Work Phone: How often do you hav e 6 or more drinks on 1 occasion? Never [facility] Work Phone: How hard is it for y ou to pay for the very basics like food, housing, medical care, and heating Very hard [facility] Work Phone: Do you feel stress - tense, restless, nervous, or anxious, or unable to sleep at night because your mind is troubled all the time - these days [OSQ] Not at all [facility] (I/We) worried wheth er (my/our) food would run out before (I/we) got money to buy more. Never true [facility] Work Phone: In the past 12 month s, was there a time when you were not able to pay the mortgage or rent on time? No [facility] NEGATED: Highlighted rowStart: SEBASTIEN History of tobacco use Passive smoker [facility] Medical Equipment Procedure Code Equipment Code Equipment Original Text Equipment Identifier Dates Lead Intrstim Mr camacho 28cm - [id number] Start: 01-28-2023 Interstim X Rech arge Free Neurostimulator - [id number] Start: 01-28-2023 Goals Date Patient Goal Desired Activity /State Personal health goal Clinical Notes 07-17-2018 to 03-01-2024 Patient InstructionsJacqueline Carpenter APRN.CNP - 03/01/2024 8:40 AM EDTTelephone Encounter - Mariam Woods LPN - 02/02/2024 6:50 PM EDTPatient InstructionsPatient InstructionsPatient Instructions Note Date & Type Note Facility 03-01-2024 Instructions Jacqueline Carpenter APRN.CNP - 03/01/2024 8:59 AM EDT Recommend stopping propranolol due to low blood pressure Stay well hydrated during the day, 8 glasses. Monitor blood pressure at home, goal 130/80 or less, but I would like to see top number in 100's May elevate the legs If rib pain does not improve get chest xray completed Red flag symptoms go to ER Message the office with BP readings once medication is stopped Be mindful with position changes. Follow up on Wednesday for blood pressure check if needed. documented in this encounter [facility] 03-01-2024 History of Present illness Narrative This is a 63 year old female who presents today with: Patient presents with: Acute Visit: Fall and wants to discuss meds HISTORY OF PRESENT ILLNESS: Asia Hawley is a 63 year old female. Patient presents with: Acute Visit: Fall and wants to discuss meds Here in the office to discuss medications. Had a fall on Wednesday morning, just fell. No dizziness at that time. Bp low in office today. Taking Propranolol 20 mg BID for tremor. Episodes are random, usually will be standing when she gets dizzy. No chest pain, palitations, or edema. Hit right ribs on Wednesday, hit a rocking chair, no LOC. Following with Neurology for tremor Copied from Neurology note. Drug-induced parkinsonism (HCC) Exhibits bradykinesia, rigidity, and tremor, which may be indicative of drug-induced parkinsonism due to metoclopramide use. Differential diagnosis includes primary Parkinson's disease, but symptoms are symmetric, affecting both sides equally, which is more consistent with drug-induced etiology. - Discontinue metoclopramide to assess for improvement in parkinsonian symptoms. - Re-evaluate for residual parkinsonian features after a washout period to differentiate between drug-induced parkinsonism and primary Parkinson's disease. 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, 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 Unspecified hypothyroidism PAST SURGICAL HISTORY Procedure Laterality Date ARTHRP INTERPOS INTERCARPAL/METACARPAL JOINTS Right 10/13/2017 Right thumb CMC arthroplasty with LRTI CAUTERY CERVIX CRYOCAUTERY INITIAL/REPEAT 1999 CHOLECYSTECTOMY Cholecystectomy COLONOSCOPY FLX DX W/COLLJ SPEC WHEN PFRMD 04/10/2009 COLONOSCOPY FLX DX W/COLLJ SPEC WHEN PFRMD 09/05/2014 Repeat 2024 COLONOSCOPY FLX DX W/COLLJ SPEC WHEN PFRMD 12/22/2017 Colonoscopy COLPOSCOPY CERVIX UPPER/ADJACENT VAGINA Multiple starting 1995 Colposcopy KIDNEY STONE SURGERY HX 11/22/2023 blasted LAPAROSCOPY COLECTOMY PARTIAL W/ANASTOMOSIS 12/07/2009 diverticulitis LIG/TRNSXJ FLP TUBE ABDL/VAG APPR UNI/BI Tubal ligation LX PARTIAL COLECTOMY 12/23/2017 [facility] lap lysis of adhesions, left oopherectomy, right salpinoopherectomy, left salpingectomy, redo lap sigmoid colectomy w/ressection, lap mobilization of splenic flexure, lap appendectomy PAST SURGICAL HISTORY OF 10/2008 T9-L1 fusion, Dr. Lemon PAST SURGICAL HISTORY OF 10/24/2009 Removed T9-L1, 2 rods and 8 screws, Dr Lemon PAST SURGICAL HISTORY OF 11/2018 Hysteroscopy with D&C and Polypectomy with Burroughs and [employer] Truclear device PICC LINE INSERT/CONSULT 07/11/2018 THYMECTOMY PRTL/TOT TRANSCERVICAL APPR SPX 07/14/2018 WEDGE RESECT LUNG Right 03/25/2020 Right VATS wedge resection of upper, middle and lower lung for pulmonary infiltrates ALLERGIES Erythromycin, Hay Fever [Seasonal Allergies], and Zyrtec [Cetirizine Hcl] MEDICATIONS Current Outpatient Medications Medication Sig predniSONE (DELTASONE) 5 mg tablet take 1 tablet by mouth once daily. amitriptyline (ELAVIL) 50 mg tablet Take 1 tablet by mouth daily at bedtime. estradiol (ESTRACE) 0.01 % (0.1 mg/gram) vaginal cream Use 1 g vaginally two times a week. biotin 5 mg tab Take 5 mg by mouth once daily. propranolol (INDERAL) 20 mg tablet Take 1 tablet by mouth two times a day. trospium (SANCTURA) 20 mg tablet Take 1 tablet by mouth two times a day. (Patient not taking: Reported on 01/12/2024) metoclopramide HCl (REGLAN) 5 mg tablet Take 1 tablet by mouth three times a day. (Patient taking differently: Take 5 mg by mouth two times a day.) levothyroxine (SYNTHROID) 100 mcg tablet Take 1 tablet by mouth once daily. Take on empty stomach mycophenolate Mofetil (CELLCEPT) 500 mg tablet Take 2 in am and one in pm calcium carbonate 600 mg-cholecalciferol 400 units 600 mg-10 mcg (400 unit) tab Take 1 tablet by mouth two times a day. aspirin, enteric coated (ASPIRIN, ENTERIC COATED) 81 mg EC tablet Take 81 mg by mouth once daily. multivit-min/iron/folic acid/K (MULTI-DAY PLUS MINERALS ORAL) Take 1 capsule by mouth once daily. L.acidophilus-L.rhamnosus (PROBIOTIC) 15 billion cell capsule Take 1 capsule by mouth once daily. No current facility-administered medications for this visit. FAMILY HISTORY Problem Relation Age of Onset Hypertension Mother Thyroid Mother Heart Father Hypertension Father COPD Father Smoker. Heart Maternal Grandmother Stroke Maternal Grandmother Cancer Maternal Grandmother COLON Cancer Paternal Grandmother STOMACH Anesthesia Problems No Family History Social History Tobacco Use Smoking status: Never Passive exposure: Never Smokeless tobacco: Never Tobacco comments: No one in household smokes. Smoker in childhood home. Vaping Use Vaping status: Never Used Substance Use Topics Alcohol use: Yes Comment: Rarely Drug use: No REVIEW OF SYSTEMS GENERAL: + Fall HEENT: Negative for frequent or significant headaches, No changes in hearing or vision. NECK: Negative for lumps, goiter, pain and significant neck swelling RESPIRATORY: Negative for cough, hemoptysis, wheezing, dyspnea or shortness of breath CARDIOVASCULAR: Negative for chest pain, leg swelling, orthopnea, or palpitations GI: No nausea, vomiting, or diarrhea/constipation. No hematochezia/melena. No heartburn or reflux symptoms. : No history of dysuria, frequency or incontinence MUSCULOSKELETAL: Negative for joint pain or swelling. SKIN: Negative for lesions, rash, and itching ENDOCRINE: Negative for cold or heat intolerance, polyuria, polydipsia and goiter NEURO: Dizziness MOOD: Negative for depression, anxiety, or suicidal ideation. EXAM: BP 82/58 Pulse 72 Resp 16 Wt 82.6 kg (182 lb 3.2 oz) LMP 01/07/2011 BMI 30.32 kg/m PHYSICAL EXAM: General Appearance: Well appearing, alert, in no acute distress, well-hydrated, well nourished. Skin: Skin color, texture, turgor normal, no suspicious rashes or lesions. Head: Normocephalic, no masses, lesions, tenderness or abnormalities. Eyes: Anicteric sclera. Extraocular movements are intact. Lungs: Lungs clear to auscultation. No wheezing, rhonchi, rales. Heart: RRR without murmur, gallop, or rubs. No ectopy. Musculoskeletal: Right ribs tender with palpation, no swelling or ecchymosis noted Extremities: No deformities, edema, skin discoloration, clubbing or cyanosis. Good capillary refill. . Peripheral Pulses: Normal, Capillary refill <2secs, strong peripheral pulses, Pulses palpable. Neurologic: Gait normal. Reflexes normal and symmetric. Sensation grossly intact.. ASSESSMENT/PLAN: 1. Fall, initial encounter - ICD9: E888.9, ICD10: W19.XXXA (primary diagnosis) - Instructed to be mindful with position changes 2. Hypotension, unspecified hypotension type - ICD9: 458.9, ICD10: I95.9 - Concerns that propranolol may be causing hypotension. - Denies wanting to go to the ER for further evaluation. - Instructed to stop propranolol. - Stay well-hydrated throughout the day. - Red flag symptoms given to patient, she verbalizes understanding when to seek emergency care. - Message the office with BP readings. 3. Rib pain - ICD9: 786.50, ICD10: R07.81 - Continue supportive care at home. - May apply heat to the area, instructed to take deep breaths throughout the day. - If pain does not improve get chest x-ray completed. - XR CHEST 2V FRONTAL/LAT Follow-up in 5 days for blood pressure check or sooner as needed. Discussed treatment plan and patient voices understanding. Patient's questions answered appropriately. Medications and potential side effects were discussed and patient voices understanding. Jacqueline Carpenter APRN.CNP This note was partially generated using [employer] voice recognition system. Note was reviewed for accuracy. There may be minor misspellings or grammar miscues with [employer] voice recognition. documented in this encounter [facility] 03-01-2024 Note HNO ID: [id number] Author: JACQUELINE CARPENTER APRN.CNP Service: ? Author Type: Nurse Practitioner Type: Progress Notes Filed: 03/01/2024 09:59 Note Text: This is a 63 year old female who presents today with: Patient presents with: Acute Visit: Fall and wants to discuss meds HISTORY OF PRESENT ILLNESS: Asia Hawley is a 63 year old female. Patient presents with: Acute Visit: Fall and wants to discuss meds Here in the office to discuss medications. Had a fall on Wednesday morning, just fell. No dizziness at that time. Bp low in office today. Taking Propranolol 20 mg BID for tremor. Episodes are random, usually will be standing when she gets dizzy. No chest pain, palitations, or edema. Hit right ribs on Wednesday, hit a rocking chair, no LOC. Following with Neurology for tremor Copied from Neurology note. Drug-induced parkinsonism (HCC) Exhibits bradykinesia, rigidity, and tremor, which may be indicative of drug-induced parkinsonism due to metoclopramide use. Differential diagnosis includes primary Parkinson's disease, but symptoms are symmetric, affecting both sides equally, which is more consistent with drug-induced etiology. - Discontinue metoclopramide to assess for improvement in parkinsonian symptoms. - Re-evaluate for residual parkinsonian features after a washout period to differentiate between drug-induced parkinsonism and primary Parkinson's disease. 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, 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 Unspecified hypothyroidism PAST SURGICAL HISTORY Procedure Laterality Date ARTHRP INTERPOS INTERCARPAL/METACARPAL JOINTS Right 10/13/2017 Right thumb CMC arthroplasty with LRTI CAUTERY CERVIX CRYOCAUTERY INITIAL/REPEAT 1999 CHOLECYSTECTOMY Cholecystectomy COLONOSCOPY FLX DX W/COLLJ SPEC WHEN PFRMD 04/10/2009 COLONOSCOPY FLX DX W/COLLJ SPEC WHEN PFRMD 09/05/2014 Repeat 2024 COLONOSCOPY FLX DX W/COLLJ SPEC WHEN PFRMD 12/22/2017 Colonoscopy COLPOSCOPY CERVIX UPPER/ADJACENT VAGINA Multiple starting 1995 Colposcopy KIDNEY STONE SURGERY HX 11/22/2023 blasted LAPAROSCOPY COLECTOMY PARTIAL W/ANASTOMOSIS 12/07/2009 diverticulitis LIG/TRNSXJ FLP TUBE ABDL/VAG APPR UNI/BI Tubal ligation LX PARTIAL COLECTOMY 12/23/2017 [facility] lap lysis of adhesions, left oopherectomy, right salpinoopherectomy, left salpingectomy, redo lap sigmoid colectomy w/ressection, lap mobilization of splenic flexure, lap appendectomy PAST SURGICAL HISTORY OF 10/2008 T9-L1 fusion, Dr. Lemon PAST SURGICAL HISTORY OF 10/24/2009 Removed T9-L1, 2 rods and 8 screws, Dr Lemon PAST SURGICAL HISTORY OF 11/2018 Hysteroscopy with DANDC and Polypectomy with Burroughs and [employer] Truclear device PICC LINE INSERT/CONSULT 07/11/2018 THYMECTOMY PRTL/TOT TRANSCERVICAL APPR SPX 07/14/2018 WEDGE RESECT LUNG Right 03/25/2020 Right VATS wedge resection of upper, middle and lower lung for pulmonary infiltrates ALLERGIES Erythromycin, Hay Fever [Seasonal Allergies], and Zyrtec [Cetirizine Hcl] MEDICATIONS Current Outpatient Medications Medication Sig predniSONE (DELTASONE) 5 mg tablet take 1 tablet by mouth once daily. amitriptyline (ELAVIL) 50 mg tablet Take 1 tablet by mouth daily at bedtime. estradiol (ESTRACE) 0.01 % (0.1 mg/gram) vaginal cream Use 1 g vaginally two times a week. biotin 5 mg tab Take 5 mg by mouth once daily. propranolol (INDERAL) 20 mg tablet Take 1 tablet by mouth two times a day. trospium (SANCTURA) 20 mg tablet Take 1 tablet by mouth two times a day. (Patient not taking: Reported on 01/12/2024) metoclopramide HCl (REGLAN) 5 mg tablet Take 1 tablet by mouth three times a day. (Patient taking differently: Take 5 mg by mouth two times a day.) levothyroxine (SYNTHROID) 100 mcg tablet Take 1 tablet by mouth once daily. Take on empty stomach mycophenolate Mofetil (CELLCEPT) 500 mg tablet Take 2 in am and one in pm calcium carbonate 600 mg-cholecalciferol 400 units 600 mg-10 mcg (400 unit) tab Take 1 tablet by mouth two times a day. aspirin, enteric coated (ASPIRIN, ENTERIC COATED) 81 mg EC tablet Take 81 mg by mouth once daily. multivit-min/iron/folic acid/K (MULTI-DAY PLUS MINERALS ORAL) Take 1 capsule by mouth once daily. L.acidophilus-L.rhamnosus (PROBIOTIC) 15 billion cell capsule Take 1 capsule by (more content not included)... [facility] 02-02-2024 Telephone encounter Note Patient notified of results, verbalizes understanding of instructions. Mariam Woods LPN [facility] 02-02-2024 Miscellaneous Notes Patient notified of results, verbalizes understanding of instructions. Mariam Woods LPN Can you please call the patient and let her know that I reviewed her lab results. Kidney function has mildly decreased. I would recommend that she keep appointments with nephrology. Continue to watch salt and processed foods in the diet. Stay well-hydrated. If interested I do have a contact for a kidney dietitian. She can do virtual visits from home. Triglycerides were elevated, A1c has gone up to 5.9, this is considered prediabetes. I would like her to work on eating a low-carb diet. Increase lean protein, vegetables, and get some form of exercise. I would like her to get repeat fasting labs prior to next appointment in June. Thank you. Jacqueline Carpenter APRN.PARTY BUS DRIVER documented in this encounter [facility] 02-02-2024 Telephone encounter Note Can you please call the patient and let her know that I reviewed her lab results. Kidney function has mildly decreased. I would recommend that she keep appointments with nephrology. Continue to watch salt and processed foods in the diet. Stay well-hydrated. If interested I do have a contact for a kidney dietitian. She can do virtual visits from home. Triglycerides were elevated, A1c has gone up to 5.9, this is considered prediabetes. I would like her to work on eating a low-carb diet. Increase lean protein, vegetables, and get some form of exercise. I would like her to get repeat fasting labs prior to next appointment in June. Thank you. Jacqueline Carpenter APRN.PARTY BUS DRIVER [facility] 01-31-2024 Telephone encounter Note Chart reviewed. New rx sent. German Rivera APRN.SAMIR [facility] 01-31-2024 Miscellaneous Notes Chart reviewed. New rx sent. German Rivera APRN.SAMIR [facility] 01/11/24: Impression: Asia Hawley is a 63 year old female with . Plan: Suspected IC/BPS Pt is s/p mirabegron, oxybutynin, interstim, botox 100 units, now botox 200 units with no improvement in OAB symptoms (had some improvement w/ interstim but didn't last long) Voids q20 minutes, waking q1h at night; feels if she doesn't empty her bladder she is in severe discomfort Last cystoscopy revealed Bladder mucosa was erythematous with petechiae and glomerulations at the bladder base and trigone upon entry of the cystoscope. - concerning for IC Possible that she has been treated for OAB while she actually has picture more c/w IC Recommend IC pathway- recommend elavil 10mg and uptitrating to 50-75mg Also discussed other oral medications, PFPT, cystoscopy with fulguration v steroids, bladder installations as treatment options Recommend pyridium PRN for 2-3 days when in bladder flare Follow up 4 weeks to assess tolerance of elavil F/u 4weeks Wiley Benitez MD === Message routed to [facility] [employer] requesting new script for Amitriptyline. documented in this encounter [facility] 01-31-2024 Telephone encounter Note [facility] 01/11/24: Impression: Asia Hawley is a 63 year old female with . Plan: Suspected IC/BPS Pt is s/p mirabegron, oxybutynin, interstim, botox 100 units, now botox 200 units with no improvement in OAB symptoms (had some improvement w/ interstim but didn't last long) Voids q20 minutes, waking q1h at night; feels if she doesn't empty her bladder she is in severe discomfort Last cystoscopy revealed Bladder mucosa was erythematous with petechiae and glomerulations at the bladder base and trigone upon entry of the cystoscope. - concerning for IC Possible that she has been treated for OAB while she actually has picture more c/w IC Recommend IC pathway- recommend elavil 10mg and uptitrating to 50-75mg Also discussed other oral medications, PFPT, cystoscopy with fulguration v steroids, bladder installations as treatment options Recommend pyridium PRN for 2-3 days when in bladder flare Follow up 4 weeks to assess tolerance of elavil F/u 4weeks Wiley Benitez MD === Message routed to [facility] [employer] requesting new script for Amitriptyline. [facility] 01-13-2024 Instructions Avtar Roberts MD - 01/13/2024 2:35 PM EDT It was a pleasure to see you today. We addressed the following diagnoses: Tremor (primary encounter diagnosis) Dyskinesia, tardive Drug-induced parkinsonism (hcc) My recommendations are as follows: -Wean off Reglan (metoclopramide) to see if your tremors and mouth movements improve. Reduce to 5 mg twice daily for 1 week, 5 mg once daily for 1 week, then stop. - We will monitor your symptoms and may consider prescribing a VMAT2 inhibitor if needed. - Continue taking propranolol as prescribed by your family doctor. - Please let us know if you have any questions or concerns. Movement Disorders Medication Schedule: Medications AM PM Propranolol 20 mg 1 1 If there are any concerns before your next visit, please call or you can send a message through [employer]. You can also now schedule and select appointments through [employer]. Avtar Roberts MD documented in this encounter [facility] 01-13-2024 Note HNO ID: [id number] Author: AVTAR ROBERTS MD Service: ? Author Type: Physician Type: Progress Notes Filed: 01/13/2024 14:50 Note Text: [facility] - NEW PATIENT EVALUATION Referring Provider: Jacqueline Carpenter [address] [facility] [address] Primary Care Provider: Priyanka Smith MD [address] [facility] [id number] Dear Jacqueline Carpenter: Thank you for referring Ms. Hawley to our clinic today. As you know she is a 63 year old right-handed female who is seen in consultation for evaluation of tremor since 2021. She is seen with her . Subjective HISTORY OF PRESENT ILLNESS: Initial HPI Patient is a 63 year old female, right hand dominance, presenting with tremors and involuntary mouth and tongue movements. Approximately a year and a half ago, towards the end of 2021, she first noticed her hands shaking, both at rest and during activities such as holding a glass. The tremors were initially pointed out by others who observed her shaking and asked if she was okay. She reports that the tremors occur in both hands and can happen both at rest and during activities. She also experiences involuntary lxpf-oeu-xziag movements of her mouth and tongue, which she believes began around the same time as the hand tremors. She does not think these movements are due to a nervous habit. She was recently prescribed propranolol by her family doctor, which has helped reduce the mouth movements but has not completely alleviated the hand tremors. She does not report any problems with walking or any family history of tremors. She is not aware of talking in her sleep or acting out her dreams at night, as she sleeps alone. Patient is currently taking amitriptyline, which was prescribed for bladder issues, and metoclopramide (Reglan), which was prescribed in 2019 for the sensation of food being stuck in her throat. She has also taken Phenergan in the past for nausea. She does not report any history of taking antipsychotics or having any major problems with depression. She has a history of thymus gland cancer. Movement Disorders Medications Schedule - as of the start of the visit: Medications AM PM Propranolol 20 mg 1 1 Other Movement Disorder Prior Therapies Propranolol Questionnaires In addition, the following areas that may be affected by abnormal involuntary movements were evaluated: Daily activities Difficulties with eatin (none) Difficulties in dressin (none) Difficulties with hygiene activities: 0 (none) Difficulties with handwritin (none) Difficulties with doing hobbies and other activities: 0 (none) Difficulties turning in bed: 0 (none) Difficulties getting out of bed, car or chair: 0 (none) Tremors/Gait/Balance Shaking or tremors: Yes (mild) Walking and balance problems: 0 (none) Number of falls in the Last Month: 0 Gait freezin (none) Autonomic/Pain Lightheadeness on standin (none) Urinary problems: Yes (mild) Constipation problems: 0 (none) Pain and other sensations: 0 (none) Speech/Swallowing Speech problems: 0 (none) Droolin (none) Chewing and swallowing problems: 0 (none) Sleep/Fatigue Sleep problems: Yes (severe) Daytime sleepiness: Yes (mild) Fatigue: Yes (mild) Mood/Behavior Depression: PHQ-9 Score: 3 usually representing no significant (0-4) depression. Anxiety: YOVANY-7 Total Score: 1 usually representing no significant (0-4) anxiety. Finally, the following table shows the patient's overall global physical and mental health using the PROMIS scale: PROMIS-10 Flowsheet Row Office Visit from 01/13/2024 in Neurology Office Visit from 05/20/2021 in Urology Global Physical Health T Score -- 50.8 Global Mental Health T Score 56 50.8 0-10 Standard Pain Scale -- 4 *PROMIS-10 scoring scale: mean = 50, over 50 is above average, under 50 is below average In addition, the following non-motor symptoms and palliative concerns were evaluated: Sleep/Fatigue: REM sleep behavior disorder: No Restless Legs Syndrome: Leg swelling: Impaired sense of smell: Cognition: Cognitive impairment: MoCA Cognitive assessment: Hallucinations and delusions: Apathy: Impulse control disorder: Palliative Concerns: Caregiver burden: Spiritual concerns: Advanced directives on file: Palliative services: Therapy and Exercise: Last PT Date: Last OT Date: Last ST Date: Exercises Regularly: ALLERGIES Allergen Reactions Erythromycin Diarrhea Hay Fever [Seasonal* Zyrtec [Cetirizine * Itching Current Outpatient Medications Medication Sig amitriptyline (ELAVIL) 10 mg tablet Take 1 tablet by mouth daily at bedtime. And as directed estradiol (ESTRACE) 0.01 % (0.1 mg/gram) vaginal cream Use 1 g vaginally two times a week. biotin 5 mg tab Take 5 mg by mouth once daily. propranolol (INDERAL) 20 mg tablet Take 1 tablet by mouth two times a day. metoclopramide HCl (REGLAN) 5 m (more content not included)... [facility] 01-13-2024 History of Present illness Narrative [facility] - NEW PATIENT EVALUATION Referring Provider: Jacqueline Carpenter [address] [id number] Primary Care Provider: Priyanka Smith MD [address] [facility] [id number] Dear Jacqueline Carpenter: Thank you for referring Ms. Hawley to our clinic today. As you know she is a 63 year old right-handed female who is seen in consultation for evaluation of tremor since 2021. She is seen with her . Subjective HISTORY OF PRESENT ILLNESS: Initial HPI Patient is a 63 year old female, right hand dominance, presenting with tremors and involuntary mouth and tongue movements. Approximately a year and a half ago, towards the end of 2021, she first noticed her hands shaking, both at rest and during activities such as holding a glass. The tremors were initially pointed out by others who observed her shaking and asked if she was okay. She reports that the tremors occur in both hands and can happen both at rest and during activities. She also experiences involuntary xhzo-ezb-uhtll movements of her mouth and tongue, which she believes began around the same time as the hand tremors. She does not think these movements are due to a nervous habit. She was recently prescribed propranolol by her family doctor, which has helped reduce the mouth movements but has not completely alleviated the hand tremors. She does not report any problems with walking or any family history of tremors. She is not aware of talking in her sleep or acting out her dreams at night, as she sleeps alone. Patient is currently taking amitriptyline, which was prescribed for bladder issues, and metoclopramide (Reglan), which was prescribed in 2019 for the sensation of food being stuck in her throat. She has also taken Phenergan in the past for nausea. She does not report any history of taking antipsychotics or having any major problems with depression. She has a history of thymus gland cancer. Movement Disorders Medications Schedule - as of the start of the visit: Medications AM PM Propranolol 20 mg 1 1 Other Movement Disorder Prior Therapies Propranolol Questionnaires In addition, the following areas that may be affected by abnormal involuntary movements were evaluated: Daily activities Difficulties with eatin (none) Difficulties in dressin (none) Difficulties with hygiene activities: 0 (none) Difficulties with handwritin (none) Difficulties with doing hobbies and other activities: 0 (none) Difficulties turning in bed: 0 (none) Difficulties getting out of bed, car or chair: 0 (none) Tremors/Gait/Balance Shaking or tremors: Yes (mild) Walking and balance problems: 0 (none) Number of falls in the Last Month: 0 Gait freezin (none) Autonomic/Pain Lightheadeness on standin (none) Urinary problems: Yes (mild) Constipation problems: 0 (none) Pain and other sensations: 0 (none) Speech/Swallowing Speech problems: 0 (none) Droolin (none) Chewing and swallowing problems: 0 (none) Sleep/Fatigue Sleep problems: Yes (severe) Daytime sleepiness: Yes (mild) Fatigue: Yes (mild) Mood/Behavior Depression: PHQ-9 Score: 3 usually representing no significant (0-4) depression. Anxiety: YOVANY-7 Total Score: 1 usually representing no significant (0-4) anxiety. Finally, the following table shows the patient's overall global physical and mental health using the PROMIS scale: PROMIS-10 Flowsheet Row Office Visit from 01/13/2024 in Neurology Office Visit from 05/20/2021 in Urology Global Physical Health T Score -- 50.8 Global Mental Health T Score 56 50.8 0-10 Standard Pain Scale -- 4 *PROMIS-10 scoring scale: mean = 50, over 50 is above average, under 50 is below average In addition, the following non-motor symptoms and palliative concerns were evaluated: Sleep/Fatigue: REM sleep behavior disorder: No Restless Legs Syndrome: Leg swelling: Impaired sense of smell: Cognition: Cognitive impairment: MoCA Cognitive assessment: Hallucinations and delusions: Apathy: Impulse control disorder: Palliative Concerns: Caregiver burden: Spiritual concerns: Advanced directives on file: Palliative services: Therapy and Exercise: Last PT Date: Last OT Date: Last ST Date: Exercises Regularly: ALLERGIES Allergen Reactions Erythromycin Diarrhea Hay Fever [Seasonal* Zyrtec [Cetirizine * Itching Current Outpatient Medications Medication Sig amitriptyline (ELAVIL) 10 mg tablet Take 1 tablet by mouth daily at bedtime. And as directed estradiol (ESTRACE) 0.01 % (0.1 mg/gram) vaginal cream Use 1 g vaginally two times a week. biotin 5 mg tab Take 5 mg by mouth once daily. propranolol (INDERAL) 20 mg tablet Take 1 tablet by mouth two times a day. metoclopramide HCl (REGLAN) 5 mg tablet Take 1 tablet by mouth three times a day. (Patient taking differently: Take 5 mg by mouth two times a day.) predniSONE (DELTASONE) 5 mg tablet Take 1 tablet by mouth once daily. levothyroxine (SYNTHROID) 100 mcg tablet Take 1 tablet by mouth once daily. Take on empty stomach mycophenolate Mofetil (CELLCEPT) 500 mg tablet Take 2 in am and one in pm calcium carbonate 600 mg-cholecalciferol 400 units 600 mg-10 mcg (400 unit) tab Take 1 tablet by mouth two times a day. aspirin, enteric coated (ASPIRIN, ENTERIC COATED) 81 mg EC tablet Take 81 mg by mouth once daily. multivit-min/iron/folic acid/K (MULTI-DAY PLUS MINERALS ORAL) Take 1 capsule by mouth once daily. L.acidophilus-L.rhamnosus (PROBIOTIC) 15 billion cell capsule Take 1 capsule by mouth once daily. trospium (SANCTURA) 20 mg tablet Take 1 tablet by mouth two times a day. (Patient not taking: Reported on 01/12/2024) No current facility-administered medications for this visit. Past Medical and Surgical History: has a past medical history of Abnormal ANCA test, Abnormal Papanicolaou smear of vagina and vaginal HPV, Diverticulitis of sigmoid colon (12/07/2009), Esophageal dysmotility (07/31/2020), GERD (gastroesophageal reflux disease) (10/01/2017), Hives, Intramural leiomyoma of uterus, Malnutrition of moderate degree (HCC) (06/15/2018), Obesity, Class I, BMI 30-34.9 E66.9 (09/03/2017), Osteopenia, Overactive bladder, Primary osteoarthritis of first carpometacarpal joint of right hand (08/05/2017), Rectal bleed (09/05/2014), Thymoma, and Unspecified hypothyroidism. has a past surgical history that includes cholecystectomy; lig/trnsxj flp tube abdl/vag appr uni/bi; colposcopy cervix upper/adjacent vagina (Multiple starting 1995); cautery cervix cryocautery initial/repeat (1999); past surgical history of (10/2008); colonoscopy flx dx w/collj spec when pfrmd (04/10/2009); laparoscopy colectomy partial w/anastomosis (12/07/2009); past surgical history of (10/24/2009); colonoscopy flx dx w/collj spec when pfrmd (09/05/2014); arthrp interpos intercarpal/metacarpal joints (Right, 10/13/2017); colonoscopy flx dx w/collj spec when pfrmd (12/22/2017); lx partial colectomy (12/23/2017); picc line insert/consult (07/11/2018); thymectomy prtl/tot transcervical appr spx (07/14/2018); past surgical history of (11/2018); wedge resect lung (Right, 03/25/2020); and kidney stone surgery hx (11/22/2023). Social History Tobacco Use Smoking status: Never Passive exposure: Never Smokeless tobacco: Never Tobacco comments: No one in household smokes. Smoker in childhood home. Vaping Use Vaping status: Never Used Substance Use Topics Alcohol use: Yes Comment: Rarely Drug use: No Family History: family history includes COPD in her father; Cancer in her maternal grandmother and paternal grandmother; Heart in her father and maternal grandmother; Hypertension in her father and mother; Stroke in her maternal grandmother; Thyroid in her mother. Objective Vital Signs: BP 101/66 (BP Site: Left Arm, BP Position: Sitting, BP Cuff Size: Regular Adult) Pulse 62 Ht 165.1 cm (5' 5 ) Wt 87.6 kg (193 lb 2 oz) LMP 01/07/2011 SpO2 98% BMI 32.14 kg/m Orthostatic Vitals: None for this encounter Weight: 87.6 kg (193 lb 2 oz) Height: 165.1 cm (5' 5 ) Patient's last menstrual period was 01/07/2011. Body mass index is 32.14 kg/m . General: no acute distress Neuro: involuntary tongue movement, slow movements on the left, mild rigidity, hesitant gait without arm swing, tremor in both hands at rest and with action General Neurological Examination: Neurological Exam Mental Status Awake, alert and oriented to person, place and time. Recent and remote memory are intact. Speech is normal. Cranial Nerves CN II-XII grossly intact, except as otherwise noted. Motor Normal muscle bulk throughout. Normal muscle tone. The following abnormal movements were seen: Strength is 5/5 throughout all four extremities. Involuntary tongue stereotypy, increased with distraction. left hand resting tremor with distraction. Bilateral L>R rigidity and bradykinesia. Sensory Light touch is normal in upper and lower extremities. Reflexes Right Left Brachioradialis 2+ 2+ Biceps 2+ 2+ Patellar 2+ 2+ Achilles 2+ 2+ Right Plantar: downgoing Left Plantar: downgoing Gait Casual gait: Normal stance. Reduced stride length. Hesitant gait. Reduced right arm swing. Reduced left arm swing. Movement Disorders Scales Performed: MDS-UPDRS Motor subscale condition of exam Medication Off/On/Naiive Drug Naiive Time of UPDRS 1416 Time of Last Medication Last Medication Taken DBS Right N/A DBS Left N/A MDS-UPDRS Motor subscale scores Speech 0-Normal. No speech problems. Facial Expression 1-Slight. Minimal masked facies manifested only by decreased frequency of blinking. Rigidity Neck 0-Normal. No rigidity. Rigidity Right Upper Extremity 1-Slight. Rigidity only detected with activation maneuver. Rigidity Left Upper Extremity 2-Mild. Rigidity detected without the activation maneuver, but full range of motion is easily achieved. Rigidity Right Lower Extremity 2-Mild. Rigidity detected without the activation maneuver, but full range of motion is easily achieved. Rigidity Left Lower Extremity 2-Mild. Rigidity detected without the activation maneuver, but full range of motion is easily achieved. Finger Taps Right 2-Mild. a) 3 to 5 interruptions during tapping, b) mild slowing, c) the amplitude decrements midway in the 10-tap sequence. Finger Taps Left 2-Mild. a) 3 to 5 interruptions during tapping, b) mild slowing, c) the amplitude decrements midway in the 10-tap sequence. Hand Movements Right 1-Slight. a) the regular rhythm is broken with one or two interruptions or hesitations of the movement, b) slight slowing, c) the amplitude decrements near the end of the task. Hand Movements Left 1-Slight. a) the regular rhythm is broken with one or two interruptions or hesitations of the movement, b) slight slowing, c) the amplitude decrements near the end of the task. Arm Movements Right 1-Slight. a) the regular rhythm is broken with one or two interruptions or hesitations of the movement, b) slight slowing, c) the amplitude decrements near the end of the sequence. Arm Movements Left 1-Slight. a) the regular rhythm is broken with one or two interruptions or hesitations of the movement, b) slight slowing, c) the amplitude decrements near the end of the sequence. Toe Taps Right 1-Slight. a) the regular rhythm is broken with one or two interruptions or hesitations of the tapping movement, b) slight slowing, c) the amplitude decrements near the end of the ten taps. Toe Taps Left 1-Slight. a) the regular rhythm is broken with one or two interruptions or hesitations of the tapping movement, b) slight slowing, c) the amplitude decrements near the end of the ten taps. Leg Agility Right 0-Normal. No problems. Leg Agility Left 0-Normal. No problems. Arise From Chair 0-Normal. No problems. Able to arise quickly without hesitation. Gait 1-Slight. Independent walking with minor gait impairment. Gait Freezing 0-Normal. No freezing. Posture Stability 0-Normal. No problems: recovers with one or two steps. Posture 0-Normal. No problems. Body Bradykinesia 1-Slight. Slight global slowness and poverty of spontaneous movements. Postural Tremor Hand Right 0-Normal. No tremor. Postural Tremor Hand Left 0-Normal. No tremor. Kinetic Tremor Right 1-Slight. Tremor is present but less than 1cm in amplitude. Kinetic Tremor Left 0-Normal. No tremor. Rest Tremor Amplitude Right Upper Extremity 0-Normal. No tremor. Rest Tremor Amplitude Left Upper Extremity 2-Mild. > 1 cm but < 3 cm in maximal amplitude. Rest Tremor Amplitude Right Lower Extremity 0-Normal. No tremor. Rest Tremor Amplitude Left Lower Extremity 0-Normal. No tremor. Rest Tremor Amplitude Lip/Jaw 0-Normal. No tremor. Rest Tremor Constancy 1-Slight. Tremor at rest is present < 25% of the entire examination period. MDS-UPDRS Motor subscale totals Left Total 11 Right Total 9 Midline Total 3 Tremor Total / 10 4 PIGD Total / 3 1 Overall Total 24 % Change Compared to Last Filed Total Abnormal Involuntary Movement Scale (AIMS): Face and Oral Movements Muscles of facial expression None, normal Lips and perioral area Minimal Jaw None, normal Tongue Moderate Extremity Movements Upper None, normal Lower None, normal Trunk Neck, shoulders, hips None, normal Global judgements Severity of abnormal movements None, normal Incapacitation due to abnormal movements Minimal Patient's awareness of abnormal movements Aware, mild distress Dental Status Current problems with teeth and/or dentures No Does patient usually wear dentures? No Endentia? No Do movements disappear with sleep Yes TOTAL SCORE 7 Assessment and Plan: Assessment Ms. Hawley is a right-handed 63 year old year old female with left > right resting tremor, rigidity and bradykinesia consistent with parkinsonism and involuntary tongue movement consistent with tardive dyskinesia. The parkinsonism may be drug-induced or unmasked Idiopathic Parkinson's disease. The following are the current problems noted and addressed during this visit: Tremor (primary encounter diagnosis) Dyskinesia, tardive Drug-induced parkinsonism (hcc) Plan 01/13/2024 Visit: # Tremor Bilateral hand tremor present at rest and during action, such as holding a glass. Tremor onset approximately 1.5 years ago, around the end of 2021. Currently managed with propranolol, which has reduced but not completely eliminated the tremor. - Gradually taper and discontinue metoclopramide, as it may be contributing to the tremor. - Monitor tremor response to metoclopramide discontinuation. # Dyskinesia, tardive Involuntary mouth and tongue movements consistent with tardive dyskinesia, likely secondary to long-term use of metoclopramide since 2019. No history of antipsychotic use. Movements are noticeable but not currently causing significant functional impairment. - Educated patient on the potential for increased dyskinetic movements following metoclopramide discontinuation. - Consider initiation of VMAT2 inhibitors such as valbenazine or deutetrabenazine if dyskinesia worsens post-discontinuation. # Drug-induced parkinsonism (HCC) Exhibits bradykinesia, rigidity, and tremor, which may be indicative of drug-induced parkinsonism due to metoclopramide use. Differential diagnosis includes primary Parkinson's disease, but symptoms are symmetric, affecting both sides equally, which is more consistent with drug-induced etiology. - Discontinue metoclopramide to assess for improvement in parkinsonian symptoms. - Re-evaluate for residual parkinsonian features after a washout period to differentiate between drug-induced parkinsonism and primary Parkinson's disease. Patient's perception of importance for healthcare provider to let them know of research trials for which they may be eligible? Somewhat important Updated Movement Disorders Medication Schedule: Medications AM PM Propranolol 20 mg 1 1 Return at or around: 05/12/24 Thank you for allowing me to be part of the clinical care of this patient! I look forward to continued participation in the patient s care with you. Please do not hesitate to call with any questions. Sincerely, Avtar Roberts MD documented in this encounter [facility] 01-11-2024 Instructions Wiley Benitez MD - 01/11/2024 12:20 PM EDT Take 10mg amitriptyline at bedtime for 1 week Then take 20-25mg amitriptyline at bedtime for 1-2 weeks Then take 50mg amitriptyline at bedtime for 2 weeks Then can increase one last time if needed to 75mg amitriptyline at bedtime Please follow up with virtual visit in 6 weeks to see how you're doing with this medication. When you have flares - take AZO (Pyridium) 2 tabs twice or three times daily as needed for 2-3 days documented in this encounter [facility] 01-11-2024 History of Present illness Narrative Female Pelvic Medicine & Reconstructive Surgery Follow-Up Asia Hawley is a 63 year old female, who presents for a follow-up of urinary incontinence, urinary urgency. History since last visit: 200 units of Botox administered on 12/01/2023. (Which was an increase in dose for her) She reports she has not had any improvement in her symptoms, she still feels the urge to urinate at least every 20-30 minutes day and night Urinary Incontinence: yes, this is only on occasion Voiding Dysfunction: no Urinary Frequency: yes, every 20-30 minutes Urinary Urgency: yes, Prolapse Symptoms: no Defecatory Dysfunction: no Fecal Incontinence: no Abnormal Bleeding: no Pain: no Abnormal Vaginal Discharge: no [facility] HISTORY: Last pap: Date:11/2023 (stenotic cervix) ; Last mammogram: Her last mammogram was 08/2023. She has no history of an abnormal mammogram LMP: Patient's last menstrual period was 01/07/2011.; Menopause post : Menstrual history: NA; Deliveries: n/a I have confirmed and edited as necessary, the PFSH obtained by others. Wiley Benitez MD Utilities Operator offered: Patient declines. OBJECTIVE: LMP 01/07/2011 General: Well appearing, alert, in no acute distress, well-hydrated, well nourished. Abdomen: Abdomen soft, non-tender Pelvic:deferred UA results: N/A Bladder scan: N/A Impression: Asia Hawley is a 63 year old female with . Plan: Suspected IC/BPS Pt is s/p mirabegron, oxybutynin, interstim, botox 100 units, now botox 200 units with no improvement in OAB symptoms (had some improvement w/ interstim but didn't last long) Voids q20 minutes, waking q1h at night; feels if she doesn't empty her bladder she is in severe discomfort Last cystoscopy revealed Bladder mucosa was erythematous with petechiae and glomerulations at the bladder base and trigone upon entry of the cystoscope. - concerning for IC Possible that she has been treated for OAB while she actually has picture more c/w IC Recommend IC pathway- recommend elavil 10mg and uptitrating to 50-75mg Also discussed other oral medications, PFPT, cystoscopy with fulguration v steroids, bladder installations as treatment options Recommend pyridium PRN for 2-3 days when in bladder flare Follow up 4 weeks to assess tolerance of elavil F/u 4weeks Wiley Benitez MD I spent a total of 30 minutes on the date of the service which included preparing to see the patient, [id number] patient care, completing clinical documentation, obtaining and/or reviewing separately obtained history, performing a medically appropriate examination, counseling and educating the patient/family/caregiver, and ordering medications, tests, or procedures. documented in this encounter [facility] 01-11-2024 Note HNO ID: [id number] Author: WILEY BENITEZ MD Service: ? Author Type: Physician Type: Progress Notes Filed: 01/11/2024 14:58 Note Text: Female Pelvic Medicine AND Reconstructive Surgery Follow-Up Asia Hawley is a 63 year old female, who presents for a follow-up of urinary incontinence, urinary urgency. History since last visit: 200 units of Botox administered on 12/01/2023. (Which was an increase in dose for her) She reports she has not had any improvement in her symptoms, she still feels the urge to urinate at least every 20-30 minutes day and night Urinary Incontinence: yes, this is only on occasion Voiding Dysfunction: no Urinary Frequency: yes, every 20-30 minutes Urinary Urgency: yes, Prolapse Symptoms: no Defecatory Dysfunction: no Fecal Incontinence: no Abnormal Bleeding: no Pain: no Abnormal Vaginal Discharge: no [facility]ENT[facility] HISTORY: Last pap: Date:11/2023 (stenotic cervix) ; Last mammogram: Her last mammogram was 08/2023. She has no history of an abnormal mammogram LMP: Patient's last menstrual period was 01/07/2011.; Menopause post : Menstrual history: NA; Deliveries: n/a I have confirmed and edited as necessary, the PFSH obtained by others. Wiley Benitez MD Utilities Operator offered: Patient declines. OBJECTIVE: LMP 01/07/2011 General: Well appearing, alert, in no acute distress, well-hydrated, well nourished. Abdomen: Abdomen soft, non-tender Pelvic:deferred UA results: N/A Bladder scan: N/A Impression: Asia Hawley is a 63 year old female with . Plan: Suspected IC/BPS Pt is s/p mirabegron, oxybutynin, interstim, botox 100 units, now botox 200 units with no improvement in OAB symptoms (had some improvement w/ interstim but didn't last long) Voids q20 minutes, waking q1h at night; feels if she doesn't empty her bladder she is in severe discomfort Last cystoscopy revealed Bladder mucosa was erythematous with petechiae and glomerulations at the bladder base and trigone upon entry of the cystoscope. - concerning for IC Possible that she has been treated for OAB while she actually has picture more c/w IC Recommend IC pathway- recommend elavil 10mg and uptitrating to 50-75mg Also discussed other oral medications, PFPT, cystoscopy with fulguration v steroids, bladder installations as treatment options Recommend pyridium PRN for 2-3 days when in bladder flare Follow up 4 weeks to assess tolerance of elavil F/u 4weeks Wiley Benitez MD I spent a total of 30 minutes on the date of the service which included preparing to see the patient, [id number] patient care, completing clinical documentation, obtaining and/or reviewing separately obtained history, performing a medically appropriate examination, counseling and educating the patient/family/caregiver, and ordering medications, tests, or procedures. [facility] 12-28-2023 Instructions Jacqueline Carpenter APRN.CNP - 12/28/2023 7:25 AM EDT Get fasting labs completed in 1 month, no food 10-12 hours prior, may have black coffee and water Continue to take all medication as prescribed. Keep scheduled appointments with specialists Watch salt and processed foods in the diet. Stay well hydrated Follow up in 6 months or sooner pending repeat labs. documented in this encounter [facility] 12-28-2023 History of Present illness Narrative This is a 63 year old female who presents today with: Patient presents with: 6 Month Exam HISTORY OF PRESENT ILLNESS: Asia Hawley is a 63 year old female. Patient presents with: 6 Month Exam 6 month follow up Tremor: Taking propranolol 20 mg twice daily. Tremors have improved but still present, noticeable in hands. Has an up coming appointment with Neurology later this month. No new symptoms. Thyroid: Taking Synthroid 100 mcg daily. Denies difficulty swallowing, palpitations, or cold/heat intolerances. Hx of low sodium/potassium, monitored through routine labs. Elevated BUN and Creatinine on previous labs, continue monitoring. Glucose -elevated glucose in the past. He has been watching diet at home. Refers that she prepares most of her meals herself. Staying well-hydrated. Pulmonary - Follows with Dr. Temple. Hx of ILD/NSIP. On current regimen of Cellcept 500 mg bid, Reglan 5 mg and Prednisone 5 mg once daily. Does CT scan of lungs yearly for monitoring. CKD: Recent GFR 34. Watching diet for salt and trying to stay well-hydrated. Following with Nephrology, history of kidney stones. Pap: Follows with [facility], refers difficulty collecting pap recently. Mammogram: w/kobe, August 2023, normal Colonoscopy: 2017, due in 2027. 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 No date: Unspecified hypothyroidism PAST SURGICAL HISTORY 10/13/2017: ARTHRP INTERPOS INTERCARPAL/METACARPAL JOINTS; Right Comment: Right thumb CMC arthroplasty with LRTI 1999: CAUTERY CERVIX CRYOCAUTERY INITIAL/REPEAT No date: CHOLECYSTECTOMY Comment: Cholecystectomy 04/10/2009: COLONOSCOPY FLX DX W/COLLJ SPEC WHEN PFRMD 09/05/2014: COLONOSCOPY FLX DX W/COLLJ SPEC WHEN PFRMD Comment: Repeat 202412/22/2017: COLONOSCOPY FLX DX W/COLLJ SPEC WHEN PFRMD Comment: Colonoscopy Multiple starting 1995: COLPOSCOPY CERVIX UPPER/ADJACENT VAGINA Comment: Colposcopy 11/22/2023: KIDNEY STONE SURGERY HX Comment: blasted 12/07/2009: LAPAROSCOPY COLECTOMY PARTIAL W/ANASTOMOSIS Comment: diverticulitis No date: LIG/TRNSXJ FLP TUBE ABDL/VAG APPR UNI/BI Comment: Tubal ligation 12/23/2017: LX PARTIAL COLECTOMY Comment: [facility] lap lysis of adhesions, left oopherectomy, right salpinoopherectomy, left salpingectomy, redo lap sigmoid colectomy w/ressection, lap mobilization of splenic flexure, lap appendectomy 10/2008: PAST SURGICAL HISTORY OF Comment: T9-L1 fusion, Dr. Lemon 10/24/2009: PAST SURGICAL HISTORY OF Comment: Removed T9-L1, 2 rods and 8 screws, Dr Lemon 11/2018: PAST SURGICAL HISTORY OF Comment: Hysteroscopy with D&C and Polypectomy with [employer] Truclear device 07/11/2018: PICC LINE INSERT/CONSULT Comment: 07/14/2018: THYMECTOMY PRTL/TOT TRANSCERVICAL APPR SPX 03/25/2020: WEDGE RESECT LUNG; Right Comment: Right VATS wedge resection of upper, middle and lower lung for pulmonary infiltrates ALLERGIES Erythromycin, Hay Fever [Seasonal Allergies], and Zyrtec [Cetirizine Hcl] MEDICATIONS Current Outpatient Medications Medication Sig estradiol (ESTRACE) 0.01 % (0.1 mg/gram) vaginal cream Use 1 g vaginally two times a week. biotin 5 mg tab Take 5 mg by mouth once daily. propranolol (INDERAL) 20 mg tablet Take 1 tablet by mouth two times a day. trospium (SANCTURA) 20 mg tablet Take 1 tablet by mouth two times a day. (Patient not taking: Reported on 11/19/2023) metoclopramide HCl (REGLAN) 5 mg tablet Take 1 tablet by mouth three times a day. predniSONE (DELTASONE) 5 mg tablet Take 1 tablet by mouth once daily. levothyroxine (SYNTHROID) 100 mcg tablet Take 1 tablet by mouth once daily. Take on empty stomach mycophenolate Mofetil (CELLCEPT) 500 mg tablet Take 2 in am and one in pm calcium carbonate 600 mg-cholecalciferol 400 units 600 mg-10 mcg (400 unit) tab Take 1 tablet by mouth two times a day. aspirin, enteric coated (ASPIRIN, ENTERIC COATED) 81 mg EC tablet Take 81 mg by mouth once daily. multivit-min/iron/folic acid/K (MULTI-DAY PLUS MINERALS ORAL) Take 1 capsule by mouth once daily. L.acidophilus-L.rhamnosus (PROBIOTIC) 15 billion cell capsule Take 1 capsule by mouth once daily. No current facility-administered medications for this visit. FAMILY HISTORY Problem Relation Age of Onset Hypertension Mother Thyroid Mother Heart Father Hypertension Father COPD Father Smoker. Heart Maternal Grandmother Stroke Maternal Grandmother Cancer Maternal Grandmother COLON Cancer Paternal Grandmother STOMACH Anesthesia Problems No Family History Social History Tobacco Use Smoking status: Never Passive exposure: Never Smokeless tobacco: Never Tobacco comments: No one in household smokes. Smoker in childhood home. Vaping Use Vaping Use: Never used Substance Use Topics Alcohol use: Yes Comment: Rarely Drug use: No REVIEW OF SYSTEMS GENERAL: No weight loss, malaise or fevers/chills HEENT: Negative for frequent or significant headaches, No changes in hearing or vision. NECK: Negative for lumps, goiter, pain and significant neck swelling RESPIRATORY: Negative for cough, hemoptysis, wheezing, dyspnea or shortness of breath CARDIOVASCULAR: Negative for chest pain, leg swelling, orthopnea, or palpitations GI: No nausea, vomiting, or diarrhea/constipation. No hematochezia/melena. No heartburn or reflux symptoms. : No history of dysuria, frequency or incontinence MUSCULOSKELETAL: Negative for joint pain or swelling. SKIN: Negative for lesions, rash, and itching ENDOCRINE: Negative for cold or heat intolerance, polyuria, polydipsia and goiter NEURO: No history of headaches, syncope, paralysis, seizures or tremors MOOD: Negative for depression, anxiety, or suicidal ideation. EXAM: BP 110/70 Pulse 70 Resp 16 Wt 86 kg (189 lb 9.5 oz) LMP 01/07/2011 SpO2 97% BMI 32.54 kg/m PHYSICAL EXAM: General Appearance: Well appearing, alert, in no acute distress, well-hydrated, well nourished.. Skin: Skin color, texture, turgor normal, no suspicious rashes or lesions. Head: Normocephalic, no masses, lesions, tenderness or abnormalities. Eyes: Anicteric sclera. Pupils are equally round and reactive to light. Extraocular movements are intact. . Neck: Supple, no adenopathy; thyroid symmetric, normal size, no bruits. Lungs: Lungs clear to auscultation. No wheezing, rhonchi, rales.. Heart: RRR without murmur, gallop, or rubs. No ectopy. Extremities: No deformities, edema, skin discoloration, clubbing or cyanosis. Good capillary refill. . Musculoskeletal: No joint swelling, deformity, or tenderness. Peripheral Pulses: Normal. Neurologic: Gait normal. Reflexes normal and symmetric. Sensation grossly intact.+ Mild tremor noted in hands bilaterally. Latest Ref Rng 12/16/2023 WBC 3.70 - 11.00 k/uL 11.52 (H) RBC 3.90 - 5.20 m/uL 4.47 Hemoglobin 11.5 - 15.5 g/dL 11.8 Hematocrit 36.0 - 46.0 % 39.1 MCV 80.0 - 100.0 fL 87.5 MCH 26.0 - 34.0 pg 26.4 MCHC 30.5 - 36.0 g/dL 30.2 (L) RDW-CV 11.5 - 15.0 % 15.4 (H) Platelet Count 150 - 400 k/uL 398 MPV 9.0 - 12.7 fL 10.9 Absolute nRBC <0.01 k/uL <0.01 Glucose 74 - 99 mg/dL 113 (H) BUN 7 - 21 mg/dL 27 (H) Creatinine 0.58 - 0.96 mg/dL 1.66 (H) Sodium 136 - 144 mmol/L 137 Potassium 3.7 - 5.1 mmol/L 4.6 Chloride 98 - 107 mmol/L 103 CO2 22 - 30 mmol/L 24 Anion Gap 8 - 15 mmol/L 10 Calcium 8.5 - 10.2 mg/dL 10.2 eGFR >=60 mL/min/1.73m 34 (L) Albumin 3.9 - 4.9 g/dL 4.0 Bilirubin, Total 0.2 - 1.3 mg/dL 0.4 Bilirubin, Conjug <0.2 mg/dL <0.2 Alkaline Phosphatase 34 - 123 U/L 90 AST 13 - 35 U/L 26 ALT 7 - 38 U/L 18 Protein, Total 6.3 - 8.0 g/dL 7.1 TSH 0.270 - 4.200 mIU/L 1.490 Legend: (H) High (L) Low ASSESSMENT/PLAN: 1. Tremor - ICD9: 781.0, ICD10: R25.1 (primary diagnosis) - Continue to take current medication - Keep up coming appointment with Neurology 2. Hypothyroidism, unspecified type - ICD9: 244.9, ICD10: E03.9 - Instructed patient on importance of taking on an empty stomach either first thing in the morning or at bedtime. - Get repeat labs in 6 months. - THYROID STIMULATING HORMONE - T4 FREE/FREE THYROXINE 3. Low sodium levels - ICD9: 276.1, ICD10: E87.1 - Get repeat labs in 6 months - COMPREHENSIVE METABOLIC PANEL 4. ILD (interstitial lung disease) (HCC) - ICD9: 515, ICD10: J84.9 - Stable, continue to take current medication. - Keep scheduled appointments with pulmonology. - Get repeat labs in 6 months. - COMPLETE BLOOD COUNT AND DIFFERENTIAL 5. Stage 3a chronic kidney disease (HCC) - ICD9: 585.3, ICD10: N18.31 - eGFR: 34 Worsening - Counseled on avoiding NSAIDs, adequate hydration - Counseled on low sodium diet - Get repeat labs in 1 month, discussed following up with nephrology. - COMPREHENSIVE METABOLIC PANEL 6. Function kidney decreased - ICD9: 593.9, ICD10: N28.9 - COMPREHENSIVE METABOLIC PANEL 7. Elevated glucose - ICD9: 790.29, ICD10: R73.09 - HEMOGLOBIN A1C 8. Obesity, Class I, BMI 30-34.9 - ICD9: 278.00, ICD10: E66.9 - LIPID PANEL BASIC 9. Screening for depression - ICD9: V79.0, ICD10: Z13.31 - DEPRESSION SCREENING 10. Encounter for screening examination for other mental health and behavioral disorders - ICD9: V79.8, ICD10: Z13.39 - ANXIETY SCREENING Follow-up in 6 months or sooner pending test results. Discussed treatment plan and patient voices understanding. Patient's questions answered appropriately. Medications and potential side effects were discussed and patient voices understanding. Jacqueline Carpenter APRN.CNP This note was partially generated using [employer] voice recognition system. Note was reviewed for accuracy. There may be minor misspellings or grammar miscues with [employer] voice recognition. documented in this encounter [facility] 12-28-2023 Note HNO ID: [id number] Author: JACQUELINE CARPENTER APRN.CNP Service: ? Author Type: Nurse Practitioner Type: Progress Notes Filed: 12/28/2023 07:55 Note Text: This is a 63 year old female who presents today with: Patient presents with: 6 Month Exam HISTORY OF PRESENT ILLNESS: Asia Hawley is a 63 year old female. Patient presents with: 6 Month Exam 6 month follow up Tremor: Taking propranolol 20 mg twice daily. Tremors have improved but still present, noticeable in hands. Has an up coming appointment with Neurology later this month. No new symptoms. Thyroid: Taking Synthroid 100 mcg daily. Denies difficulty swallowing, palpitations, or cold/heat intolerances. Hx of low sodium/potassium, monitored through routine labs. Elevated BUN and Creatinine on previous labs, continue monitoring. Glucose -elevated glucose in the past. He has been watching diet at home. Refers that she prepares most of her meals herself. Staying well-hydrated. Pulmonary - Follows with Dr. Temple. Hx of ILD/NSIP. On current regimen of Cellcept 500 mg bid, Reglan 5 mg and Prednisone 5 mg once daily. Does CT scan of lungs yearly for monitoring. CKD: Recent GFR 34. Watching diet for salt and trying to stay well-hydrated. Following with Nephrology, history of kidney stones. Pap: Follows with [facility], refers difficulty collecting pap recently. Mammogram: w/kobe, August 2023, normal Colonoscopy: 2017, due in 2027. 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, 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 No date: Unspecified hypothyroidism PAST SURGICAL HISTORY 10/13/2017: ARTHRP INTERPOS INTERCARPAL/METACARPAL JOINTS; Right Comment: Right thumb CMC arthroplasty with LRTI 1999: CAUTERY CERVIX CRYOCAUTERY INITIAL/REPEAT No date: CHOLECYSTECTOMY Comment: Cholecystectomy 04/10/2009: COLONOSCOPY FLX DX W/COLLJ SPEC WHEN PFRMD 09/05/2014: COLONOSCOPY FLX DX W/COLLJ SPEC WHEN PFRMD Comment: Repeat 202412/22/2017: COLONOSCOPY FLX DX W/COLLJ SPEC WHEN PFRMD Comment: Colonoscopy Multiple starting 1996: COLPOSCOPY CERVIX UPPER/ADJACENT VAGINA Comment: Colposcopy 11/22/2023: KIDNEY STONE SURGERY HX Comment: blasted 12/07/2009: LAPAROSCOPY COLECTOMY PARTIAL W/ANASTOMOSIS Comment: diverticulitis No date: LIG/TRNSXJ FLP TUBE ABDL/VAG APPR UNI/BI Comment: Tubal ligation 12/23/2017: LX PARTIAL COLECTOMY Comment: [facility] lap lysis of adhesions, left oopherectomy, right salpinoopherectomy, left salpingectomy, redo lap sigmoid colectomy w/ressection, lap mobilization of splenic flexure, lap appendectomy 10/2008: PAST SURGICAL HISTORY OF Comment: T9-L1 fusion, Dr. Lemon 10/24/2009: PAST SURGICAL HISTORY OF Comment: Removed T9-L1, 2 rods and 8 screws, Dr Lemon 11/2018: PAST SURGICAL HISTORY OF Comment: Hysteroscopy with DANDC and Polypectomy with [employer] Truclear device 07/11/2018: PICC LINE INSERT/CONSULT Comment: 07/14/2018: THYMECTOMY PRTL/TOT TRANSCERVICAL APPR SPX 03/25/2020: WEDGE RESECT LUNG; Right Comment: Right VATS wedge resection of upper, middle and lower lung for pulmonary infiltrates ALLERGIES Erythromycin, Hay Fever [Seasonal Allergies], and Zyrtec [Cetirizine Hcl] MEDICATIONS Current Outpatient Medications Medication Sig estradiol (ESTRACE) 0.01 % (0.1 mg/gram) vaginal cream Use 1 g vaginally two times a week. biotin 5 mg tab Take 5 mg by mouth once daily. propranolol (INDERAL) 20 mg tablet Take 1 tablet by mouth two times a day. trospium (SANCTURA) 20 mg tablet Take 1 tablet by mouth two times a day. (Patient not taking: Reported on 11/19/2023) metoclopramide HCl (REGLAN) 5 mg tablet Take 1 tablet by mouth three times a day. predniSONE (DELTASONE) 5 mg tablet Take 1 tablet by mouth once daily. levothyroxine (SYNTHROID) 100 mcg tablet Take 1 tablet by mouth once daily. Take on empty stomach mycophenolate Mofetil (CELLCEPT) 500 mg tablet Take 2 in am and one in pm calcium carbonate 600 mg-cholecalciferol 400 units 600 mg-10 mcg (400 unit) tab Take 1 tablet by mouth two times a day. aspirin, enteric coated (ASPIRIN, ENTERIC COATED) 81 mg EC tablet Take 81 mg by mouth once daily. multivit-min/iron/folic acid/K (MULTI-DAY PLUS MINERALS ORAL) (more content not included)... [facility] 12-22-2023 Note HNO ID: [id number] Author: MATHEW YANG JR, MD Service: ? Author Type: Physician Type: Progress Notes Filed: 12/22/2023 10:17 Note Text: ESTABLISHED PATIENT OFFICE VISIT HPI Asia Hawley is a 63 year old female who presents refer for frequency/urgency. On no current meds. Has to void q 2 hours day and night. Ho colon resection. Has severe constipation. Has bm 1x/week. Seeing her general surgeon soon. Supposed to be taking fiber, however has not been. On probiotic however. Does not get uti's per patient. Drinks minimal caffeine. Has long ho microhematuria. No imaging ever done 05/23/19 - better with oxy 10 er. Has not really addressed constipation 05/21/20 - stable on oxy 10 er. Constipation better. Ua+ 05/20/20 - oxybutynin no longer helping. Stopped. Would like to try another medicine for now. Would consider PFT in the spring. 08/11/22 - now seeing dr. Mg for botox injection to be done soon. She noticed blood in the urine. Ct scan showed r upj obstruction and L lower pole 9mm renal calc. No fever. No uti. No flank pain. 11/03/22 - renal lasix scan discussed. No signs of obstruction. Kub did not show L lower pole 8mm calc. Options discussed including laser litho vs. Surveillance. 11/09/23 - doing ok since last seen. No stone episode. Kub shows 2 r renal calc. No pain. No fever. No uti. Opitons discussed. 12/21/23 - sp R ESWL. Stones gone. Doing well. Stone prevention discussed. No fever. No uti. LAB: Creatinine Date Value Ref Range Status 12/16/2023 1.66 (H) 0.58 - 0.96 mg/dL Final No results found for: PSA Glucose, Urine Date Value 05/22/2022 Negative 03/22/2020 Negative mg/dL Bilirubin, Urine (no units) Date Value 05/22/2022 Negative 03/22/2020 Negative Ketones, Urine (no units) Date Value 05/22/2022 Negative 03/22/2020 Negative Specific [place], Ur (no units) Date Value 05/22/2022 1.010 03/22/2020 1.021 Hemoglobin/Blood,Ur Date Value 05/22/2022 3+ 03/22/2020 2+ pH, Urine (no units) Date Value 05/22/2022 7.0 03/22/2020 6.0 Protein, Urine (no units) Date Value 05/22/2022 1+ 03/22/2020 2+ Urobilinogen, Urine (EU) Date Value 04/13/2011 normal Nitrites (no units) Date Value 05/22/2022 Negative 03/22/2020 Negative Leukocytes (no units) Date Value 04/13/2011 large WBC, Urine Date Value 05/22/2022 6-10 /HPF 03/22/2020 0-5 /HPF Color/Appearance (comment:) Date Value 04/13/2011 tea/cloudy MEDICATIONS: estradiol (ESTRACE) 0.01 % (0.1 mg/gram) vaginal cream Use 1 g vaginally two times a week. biotin 5 mg tab Take 5 mg by mouth once daily. propranolol (INDERAL) 20 mg tablet Take 1 tablet by mouth two times a day. metoclopramide HCl (REGLAN) 5 mg tablet Take 1 tablet by mouth three times a day. predniSONE (DELTASONE) 5 mg tablet Take 1 tablet by mouth once daily. levothyroxine (SYNTHROID) 100 mcg tablet Take 1 tablet by mouth once daily. Take on empty stomach mycophenolate Mofetil (CELLCEPT) 500 mg tablet Take 2 in am and one in pm calcium carbonate 600 mg-cholecalciferol 400 units 600 mg-10 mcg (400 unit) tab Take 1 tablet by mouth two times a day. aspirin, enteric coated (ASPIRIN, ENTERIC COATED) 81 mg EC tablet Take 81 mg by mouth once daily. multivit-min/iron/folic acid/K (MULTI-DAY PLUS MINERALS ORAL) Take 1 capsule by mouth once daily. L.acidophilus-L.rhamnosus (PROBIOTIC) 15 billion cell capsule Take 1 capsule by mouth once daily. trospium (SANCTURA) 20 mg tablet Take 1 tablet by mouth two times a day. (Patient not taking: Reported on 11/19/2023) REVIEW OF SYSTEMS Review of Systems Constitutional: Negative. Respiratory: Negative. Cardiovascular: Negative. Gastrointestinal: Negative. Genitourinary: Negative. Skin: Negative. Neurological: Negative. Psychiatric/Behavioral: Negative. HISTORIES PAST MEDICAL HISTORY No date: Abnormal ANCA test Comment: positive P-ANCA with MPO, no clinical vasculitis No date: Abnormal Papanicolaou smear of vagina and vaginal HPV 12/07/2009: Diverticulitis of sigmoid colon Comment: ACUTE 07/31/2020: Esophageal dysmotility Comment: Manometry 06/21/2020. 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 Heart Maternal Grandmother Stroke Maternal Grandmother Cancer Maternal Grandmother COLON Cancer Paternal Grandm (more content not included)... [facility] 12-22-2023 History of Present illness Narrative ESTABLISHED PATIENT OFFICE VISIT HPI Asia Hawley is a 63 year old female who presents refer for frequency/urgency. On no current meds. Has to void q 2 hours day and night. Ho colon resection. Has severe constipation. Has bm 1x/week. Seeing her general surgeon soon. Supposed to be taking fiber, however has not been. On probiotic however. Does not get uti's per patient. Drinks minimal caffeine. Has long ho microhematuria. No imaging ever done 05/23/19 - better with oxy 10 er. Has not really addressed constipation 05/21/20 - stable on oxy 10 er. Constipation better. Ua+ 05/20/20 - oxybutynin no longer helping. Stopped. Would like to try another medicine for now. Would consider PFT in the spring. 08/11/22 - now seeing dr. Mg for botox injection to be done soon. She noticed blood in the urine. Ct scan showed r upj obstruction and L lower pole 9mm renal calc. No fever. No uti. No flank pain. 11/03/22 - renal lasix scan discussed. No signs of obstruction. Kub did not show L lower pole 8mm calc. Options discussed including laser litho vs. Surveillance. 11/09/23 - doing ok since last seen. No stone episode. Kub shows 2 r renal calc. No pain. No fever. No uti. Opitons discussed. 12/21/23 - sp R ESWL. Stones gone. Doing well. Stone prevention discussed. No fever. No uti. LAB: Creatinine Date Value Ref Range Status 12/16/2023 1.66 (H) 0.58 - 0.96 mg/dL Final No results found for: PSA Glucose, Urine Date Value 05/22/2022 Negative 03/22/2020 Negative mg/dL Bilirubin, Urine (no units) Date Value 05/22/2022 Negative 03/22/2020 Negative Ketones, Urine (no units) Date Value 05/22/2022 Negative 03/22/2020 Negative Specific [place], Ur (no units) Date Value 05/22/2022 1.010 03/22/2020 1.021 Hemoglobin/Blood,Ur Date Value 05/22/2022 3+ 03/22/2020 2+ pH, Urine (no units) Date Value 05/22/2022 7.0 03/22/2020 6.0 Protein, Urine (no units) Date Value 05/22/2022 1+ 03/22/2020 2+ Urobilinogen, Urine (EU) Date Value 04/13/2011 normal Nitrites (no units) Date Value 05/22/2022 Negative 03/22/2020 Negative Leukocytes (no units) Date Value 04/13/2011 large WBC, Urine Date Value 05/22/2022 6-10 /HPF 03/22/2020 0-5 /HPF Color/Appearance (comment:) Date Value 04/13/2011 tea/cloudy MEDICATIONS: estradiol (ESTRACE) 0.01 % (0.1 mg/gram) vaginal cream Use 1 g vaginally two times a week. biotin 5 mg tab Take 5 mg by mouth once daily. propranolol (INDERAL) 20 mg tablet Take 1 tablet by mouth two times a day. metoclopramide HCl (REGLAN) 5 mg tablet Take 1 tablet by mouth three times a day. predniSONE (DELTASONE) 5 mg tablet Take 1 tablet by mouth once daily. levothyroxine (SYNTHROID) 100 mcg tablet Take 1 tablet by mouth once daily. Take on empty stomach mycophenolate Mofetil (CELLCEPT) 500 mg tablet Take 2 in am and one in pm calcium carbonate 600 mg-cholecalciferol 400 units 600 mg-10 mcg (400 unit) tab Take 1 tablet by mouth two times a day. aspirin, enteric coated (ASPIRIN, ENTERIC COATED) 81 mg EC tablet Take 81 mg by mouth once daily. multivit-min/iron/folic acid/K (MULTI-DAY PLUS MINERALS ORAL) Take 1 capsule by mouth once daily. L.acidophilus-L.rhamnosus (PROBIOTIC) 15 billion cell capsule Take 1 capsule by mouth once daily. trospium (SANCTURA) 20 mg tablet Take 1 tablet by mouth two times a day. (Patient not taking: Reported on 11/19/2023) REVIEW OF SYSTEMS Review of Systems Constitutional: Negative. Respiratory: Negative. Cardiovascular: Negative. Gastrointestinal: Negative. Genitourinary: Negative. Skin: Negative. Neurological: Negative. Psychiatric/Behavioral: Negative. HISTORIES PAST MEDICAL HISTORY No date: Abnormal ANCA test Comment: positive P-ANCA with MPO, no clinical vasculitis No date: Abnormal Papanicolaou smear of vagina and vaginal HPV 12/07/2009: Diverticulitis of sigmoid colon Comment: ACUTE 07/31/2020: Esophageal dysmotility Comment: Manometry 06/21/2020. 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 Heart Maternal Grandmother Stroke Maternal Grandmother Cancer Maternal Grandmother COLON Cancer Paternal Grandmother STOMACH Anesthesia Problems No Family History SOCIAL HISTORY Social History Tobacco Use Smoking status: Never Passive exposure: Never Smokeless tobacco: Never Tobacco comments: No one in household smokes. Smoker in childhood home. Vaping Use Vaping Use: Never used Substance Use Topics Alcohol use: Yes Comment: Rarely Drug use: No PHYSICAL EXAMINATION General appearance: Well appearing, alert, in no acute distress, and well-hydrated, well nourished Skin: Skin color, texture, turgor normal, no suspicious rashes or lesions Respiratory:+ effort Cardiovascular: Not examined GI: Normal abdominal exam, Abdomen soft, non-tender. No masses, organomegaly Musculoskeletal: Negative Neuro: Negative Genitourinary: not examined Impression: (N20.0) Kidney stone (primary encounter diagnosis) Plan: 1 year Kub prior Stone prevention Mathew Yang Jr, MD 12/22/2023 documented in this encounter [facility] 12-01-2023 Instructions Lacy Romero - 12/01/2023 2:56 PM EDT Images from the original note were not included. CYSTOSCOPY HOMEGOING INSTRUCTIONS You have undergone a cystoscopy procedure where a telescope was inserted into your bladder through your urethra. What to expect: You may have a burning sensation during urination and/or blood-tinged urine. These symptoms will normally subside within 24 hours and with increased fluid intake. When to call the physician s office: If you have a fever of 100.4 degrees Fahrenheit or higher If you are unable to urinate If your urine becomes bloody and does not clear with increased fluid intake. If after 24 hours, you have signs of a urinary tract infection. UROGYNECOLOGY PHYSICIAN CONTACT INFORMATION During business hours, these numbers connect to your doctor s office. During the evening and weekends, these numbers will connect you to the answering service to speak with the doctor ironing worker. Dr. Cueto Dr. Benitez Dr. Constantino Dr. Cerda Dr. Brumfield Dr. Mcqueen Dr. Foy Dr. Mg Teri Washington, PARTY BUS DRIVER Tariq Brooks, PARTY BUS DRIVER German Rivera, PARTY BUS DRIVER Radha Roberts, SAMIR Romero, PARTY BUS DRIVER Lucina Estrada, PARTY BUS DRIVER Please DO NOT use MyChart for procedure concerns. documented in this encounter [facility] 12-01-2023 Nurse Note Instruction sheet given and reviewed: Yes Patient verbalizes understanding: Yes Post- procedure Vital Signs: B/P: 152/92 P: R:18 Pain Ratin on a scale of 0 to 10. Specimens: not indicated. Nurse: Lacy Romero [facility] 12-01-2023 Nurse Note Instruction sheet given and reviewed: Yes Patient verbalizes understanding: Yes Post- procedure Vital Signs: B/P: 152/92 P: R:18 Pain Ratin on a scale of 0 to 10. Specimens: not indicated. Nurse: Lacy Romero documented in this encounter [facility] 12-01-2023 History of Present illness Narrative Asia Hawley presents today for a intradetrusor Botox injections. Indication: Urinary urgency, Urge incontinence. UNIVERSAL PROTOCOL / SAFETY CHECKLIST Procedure to be Performed: cystoscopy with botox 200 units Sign In: A Moment of CARE was completed. Personnel directly involved with the procedure wore the appropriate PPE (Personal Protective Equipment). Patient/Surrogate Stated/Verified: PATIENT VERIFIED(optional for EMERGENT procedures): Patient name, Date of , Relevant allergies, and The intended procedure Time Out Communication: Intended patient and procedure match the source documents. Consent documented and matches the intended procedure. Sign Out: SIGN OUT (optional for EMERGENT procedures): No specimen collected. All instruments, equipment, possible retained foreign bodies accounted for. PROCEDURE: Indication: Urinary Urgency/Urinary Frequency/Urinary urge incontinence/ Neurogenic bladder/Interstitial Cystitis. The patient understands the RBA of intradetrusor Botox injection, including but not limited to UTI, hematuria, urinary retention (dose dependent), treatment failure and transient weakness (rare). Brief description of procedure: After obtaining written informed consent, a time out was performed. The patient was placed in dorsal lithotomy position, then prepped and draped in the usual sterile fashion. 2% urethral lidocaine jelly was introduced into the urethra and allowed to take analgesic effect. Anesthesia: Intraurethral Lidocaine jelly 6 mL. Video-assisted cystourethroscopy was performed using a 19 Nepalese 30 degree cystoscope with saline infusion. The cystoscope was advanced into the bladder. Next, the bladder was evaluated. Bilateral ureteral orifices were identified in normal orthotopic position. The bladder mucosa was evaluated in its entirety. There no bladder masses, stones, lesions or foreign bodies. Bladder mucosa was erythematous with petechiae and glomerulations at the bladder base and trigone upon entry of the cystoscope. Next 200 units of Botox were reconstituted in 20 mL of preservative-free injectable saline and injected in 2-3 mL aliquots into the detrusor in a grid-like pattern. In all 8 injections were given. Finally, the cystoscope was removed from the bladder and the urethra evaluated again. The patient tolerated the procedure well and was given an immediate dose of periprocedural antibiotics. There were no complications. Findings: as above Complications: none Procedure Summary: Patient tolerated procedure well. Medications: Prophylactic antibiotics Plan: Follow up in 1 month with me. Continue with interstim - dual therapy botox and interstim. If still continues to have bladder urgency/pressure consider IC therapy given cystoscopy findings and she has not been treated for IC/BPS ever. Also plan to repeat cystoscopy in 6 months. If bladder mucosa not improved consider bladder biopsy in the OR. Wiley Benitez MD documented in this encounter [facility] 12-01-2023 Note HNO ID: [id number] Author: WILEY BENITEZ MD Service: ? Author Type: Physician Type: Progress Notes Filed: 12/01/2023 15:25 Note Text: Asia Hawley presents today for a intradetrusor Botox injections. Indication: Urinary urgency, Urge incontinence. UNIVERSAL PROTOCOL / SAFETY CHECKLIST Procedure to be Performed: cystoscopy with botox 200 units Sign In: A Moment of CARE was completed. Personnel directly involved with the procedure wore the appropriate PPE (Personal Protective Equipment). Patient/Surrogate Stated/Verified: PATIENT VERIFIED(optional for EMERGENT procedures): Patient name, Date of , Relevant allergies, and The intended procedure Time Out Communication: Intended patient and procedure match the source documents. Consent documented and matches the intended procedure. Sign Out: SIGN OUT (optional for EMERGENT procedures): No specimen collected. All instruments, equipment, possible retained foreign bodies accounted for. PROCEDURE: Indication: Urinary Urgency/Urinary Frequency/Urinary urge incontinence/ Neurogenic bladder/Interstitial Cystitis. The patient understands the RBA of intradetrusor Botox injection, including but not limited to UTI, hematuria, urinary retention (dose dependent), treatment failure and transient weakness (rare). Brief description of procedure: After obtaining written informed consent, a time out was performed. The patient was placed in dorsal lithotomy position, then prepped and draped in the usual sterile fashion. 2% urethral lidocaine jelly was introduced into the urethra and allowed to take analgesic effect. Anesthesia: Intraurethral Lidocaine jelly 6 mL. Video-assisted cystourethroscopy was performed using a 19 Nepalese 30 degree cystoscope with saline infusion. The cystoscope was advanced into the bladder. Next, the bladder was evaluated. Bilateral ureteral orifices were identified in normal orthotopic position. The bladder mucosa was evaluated in its entirety. There no bladder masses, stones, lesions or foreign bodies. Bladder mucosa was erythematous with petechiae and glomerulations at the bladder base and trigone upon entry of the cystoscope. Next 200 units of Botox were reconstituted in 20 mL of preservative-free injectable saline and injected in 2-3 mL aliquots into the detrusor in a grid-like pattern. In all 8 injections were given. Finally, the cystoscope was removed from the bladder and the urethra evaluated again. The patient tolerated the procedure well and was given an immediate dose of periprocedural antibiotics. There were no complications. Findings: as above Complications: none Procedure Summary: Patient tolerated procedure well. Medications: Prophylactic antibiotics Plan: Follow up in 1 month with me. Continue with interstim - dual therapy botox and interstim. If still continues to have bladder urgency/pressure consider IC therapy given cystoscopy findings and she has not been treated for IC/BPS ever. Also plan to repeat cystoscopy in 6 months. If bladder mucosa not improved consider bladder biopsy in the OR. Wiley Benitez MD [facility] 11-29-2023 Note Addended by: Frida NAYAK on: 11/29/2023 11:01 AM Modules accepted: Orders [facility] 11-29-2023 Miscellaneous Notes Addended by: CLAUDIA NAYAK on: 11/29/2023 11:01 AM Modules accepted: Orders documented in this encounter [facility] 11-29-2023 History of Present illness Narrative Radiology Service Progress Note PATIENT NAME: Asia Hawley DATE OF SERVICE: November 29, 2023 TIME: 7:50 AM PATIENT IDENTITY VERIFICATION COMPLETED USING TWO (2) IDENTIFIERS: Name and Date of confirmed by patient verbally. FALL SCREENING: Has the patient had 2 falls in the last year or 1 fall with injury or currently using an Ambulatory Assistive Device (Walker, Cane, Wheelchair, Crutches, etc.)? No PATIENT GENDER DATA: Female. status: : No status: NO. PATIENT RELEVANT IMPLANT DATA REVIEWED: Yes PATIENT PRESENTS WITH AN IMPLANTABLE OR ATTACHED AUDIO VISUAL SECRETARY: No RADIOLOGY DEPARTMENT: General X-ray: Exam(s) Completed: Abdomen X-Ray: Abdomen PERIPHERAL IV DATA: Not applicable SIGNED BY: RT Eloy(Denisse) November 29, 2023 7:50 AM documented in this encounter [facility] 11-29-2023 Note HNO ID: [id number] Author: MADELINE GONZALEZ RT(Denisse) Service: ? Author Type: Oven Roaster Type: Progress Notes Filed: 11/29/2023 08:07 Note Text: Radiology Service Progress Note PATIENT NAME: Asia Hawley DATE OF SERVICE: November 29, 2023 TIME: 7:50 AM PATIENT IDENTITY VERIFICATION COMPLETED USING TWO (2) IDENTIFIERS: Name and Date of confirmed by patient verbally. FALL SCREENING: Has the patient had 2 falls in the last year or 1 fall with injury or currently using an Ambulatory Assistive Device (Walker, Cane, Wheelchair, Crutches, etc.)? No PATIENT GENDER DATA: Female. status: : No status: NO. PATIENT RELEVANT IMPLANT DATA REVIEWED: Yes PATIENT PRESENTS WITH AN IMPLANTABLE OR ATTACHED AUDIO VISUAL SECRETARY: No RADIOLOGY DEPARTMENT: General X-ray: Exam(s) Completed: Abdomen X-Ray: Abdomen PERIPHERAL IV DATA: Not applicable SIGNED BY: RT Eloy(Denisse) November 29, 2023 7:50 AM [facility] 11-29-2023 Note HNO ID: [id number] Author: MURIEL LOPEZ APRN.CNM Service: ? Author Type: Inside Sales Territory Manager Type: Progress Notes Filed: 11/29/2023 08:44 Note Text: Asia is a 63 year old who presents for an annual gynecologic exam without complaints. 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 Unspecified hypothyroidism PAST SURGICAL HISTORY Procedure Laterality Date ARTHRP INTERPOS INTERCARPAL/METACARPAL JOINTS Right 10/13/2017 Right thumb CMC arthroplasty with LRTI CAUTERY CERVIX CRYOCAUTERY INITIAL/REPEAT 1999 CHOLECYSTECTOMY Cholecystectomy COLONOSCOPY FLX DX W/COLLJ SPEC WHEN PFRMD 04/10/2009 COLONOSCOPY FLX DX W/COLLJ SPEC WHEN PFRMD 09/05/2014 Repeat 2024 COLONOSCOPY FLX DX W/COLLJ SPEC WHEN PFRMD 12/22/2017 Colonoscopy COLPOSCOPY CERVIX UPPER/ADJACENT VAGINA Multiple starting 1995 Colposcopy LAPAROSCOPY COLECTOMY PARTIAL W/ANASTOMOSIS 12/07/2009 diverticulitis LIG/TRNSXJ FLP TUBE ABDL/VAG APPR UNI/BI Tubal ligation LX PARTIAL COLECTOMY 12/23/2017 [facility] lap lysis of adhesions, left oopherectomy, right salpinoopherectomy, left salpingectomy, redo lap sigmoid colectomy w/ressection, lap mobilization of splenic flexure, lap appendectomy PAST SURGICAL HISTORY OF 10/2008 T9-L1 fusion, Dr. Lemon PAST SURGICAL HISTORY OF 10/24/2009 Removed T9-L1, 2 rods and 8 screws, Dr Lemon PAST SURGICAL HISTORY OF 11/2018 Hysteroscopy with DANDC and Polypectomy with [employer] Truclear device PICC LINE INSERT/CONSULT 07/11/2018 THYMECTOMY PRTL/TOT TRANSCERVICAL APPR SPX 07/14/2018 WEDGE RESECT LUNG Right 03/25/2020 Right VATS wedge resection of upper, middle and lower lung for pulmonary infiltrates FAMILY HISTORY Problem Relation Age of Onset Hypertension Mother Thyroid Mother Heart Father Hypertension Father COPD Father Smoker. Heart Maternal Grandmother Stroke Maternal Grandmother Cancer Maternal Grandmother COLON Cancer Paternal Grandmother STOMACH Anesthesia Problems No Family History SOCIAL HISTORY Social History Tobacco Use Smoking status: Never Passive exposure: Never Smokeless tobacco: Never Tobacco comments: No one in household smokes. Smoker in childhood home. Vaping Use Vaping Use: Never used Substance Use Topics Alcohol use: Yes Comment: Rarely Drug use: No REVIEW OF SYSTEMS Abdomen: No abdominal pain, nausea, vomiting, diarrhea, or constipation. No bloating, early satiety, indigestion, or increased flatulence. Bladder: No dysuria, gross hematuria, POSITIVE for overactive bladder/frequency/urgency and incontinence. 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 GENERAL: pleasant, female in no apparent distress HEENT: Normocephalic and atraumatic NECK: Supple DERMATOLOGY: Normal and without lesions BREAST: soft, non-tender, symmetric, no dominant mass, normal nipple-areolar complex, no lymphadenopathy, and no nipple discharge CHEST: Normal inspiratory effort ABDOMEN: soft, non-tender, and no masses PELVIC: external genitalia normal, no vulvar lesions, no cervical lesions, atrophic changes , stenotic os - UNABLE TO OBTAIN SAMPLE BIMANUAL: uterus normal size, shape and consistency, no adnexal masses, non-tender, and no cervical motion tenderness RECTOVAGINAL: deferred. NEURO: alert and oriented x3,exam grossly non-focal EXTREMITIES: normal (more content not included)... [facility] 11-29-2023 History of Present illness Narrative Asia is a 63 year old who presents for an annual gynecologic exam without complaints. 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 Unspecified hypothyroidism PAST SURGICAL HISTORY Procedure Laterality Date ARTHRP INTERPOS INTERCARPAL/METACARPAL JOINTS Right 10/13/2017 Right thumb CMC arthroplasty with LRTI CAUTERY CERVIX CRYOCAUTERY INITIAL/REPEAT 1999 CHOLECYSTECTOMY Cholecystectomy COLONOSCOPY FLX DX W/COLLJ SPEC WHEN PFRMD 04/10/2009 COLONOSCOPY FLX DX W/COLLJ SPEC WHEN PFRMD 09/05/2014 Repeat 2024 COLONOSCOPY FLX DX W/COLLJ SPEC WHEN PFRMD 12/22/2017 Colonoscopy COLPOSCOPY CERVIX UPPER/ADJACENT VAGINA Multiple starting 1995 Colposcopy LAPAROSCOPY COLECTOMY PARTIAL W/ANASTOMOSIS 12/07/2009 diverticulitis LIG/TRNSXJ FLP TUBE ABDL/VAG APPR UNI/BI Tubal ligation LX PARTIAL COLECTOMY 12/23/2017 [facility] lap lysis of adhesions, left oopherectomy, right salpinoopherectomy, left salpingectomy, redo lap sigmoid colectomy w/ressection, lap mobilization of splenic flexure, lap appendectomy PAST SURGICAL HISTORY OF 10/2008 T9-L1 fusion, Dr. Lemon PAST SURGICAL HISTORY OF 10/24/2009 Removed T9-L1, 2 rods and 8 screws, Dr Lemon PAST SURGICAL HISTORY OF 11/2018 Hysteroscopy with D&C and Polypectomy with [employer] Truclear device PICC LINE INSERT/CONSULT 07/11/2018 THYMECTOMY PRTL/TOT TRANSCERVICAL APPR SPX 07/14/2018 WEDGE RESECT LUNG Right 03/25/2020 Right VATS wedge resection of upper, middle and lower lung for pulmonary infiltrates FAMILY HISTORY Problem Relation Age of Onset Hypertension Mother Thyroid Mother Heart Father Hypertension Father COPD Father Smoker. Heart Maternal Grandmother Stroke Maternal Grandmother Cancer Maternal Grandmother COLON Cancer Paternal Grandmother STOMACH Anesthesia Problems No Family History SOCIAL HISTORY Social History Tobacco Use Smoking status: Never Passive exposure: Never Smokeless tobacco: Never Tobacco comments: No one in household smokes. Smoker in childhood home. Vaping Use Vaping Use: Never used Substance Use Topics Alcohol use: Yes Comment: Rarely Drug use: No REVIEW OF SYSTEMS Abdomen: No abdominal pain, nausea, vomiting, diarrhea, or constipation. No bloating, early satiety, indigestion, or increased flatulence. Bladder: No dysuria, gross hematuria, POSITIVE for overactive bladder/frequency/urgency and incontinence. Seen by URO/DENTAL MOLD MAKER- currently receiving botox in bladder/ taking oral medications Breast: No breast lumps, nipple d/c, overlying skin changes, redness or skin retraction Allergies and current medication updated:Yes EXAM: BP 114/76 Ht 5' 4 (1.63m) Wt 190 lb (86.2kg) LMP 01/07/2011 BMI 32.60 kg/(m^2). GENERAL: pleasant, female in no apparent distress HEENT: Normocephalic and atraumatic NECK: Supple DERMATOLOGY: Normal and without lesions BREAST: soft, non-tender, symmetric, no dominant mass, normal nipple-areolar complex, no lymphadenopathy, and no nipple discharge CHEST: Normal inspiratory effort ABDOMEN: soft, non-tender, and no masses PELVIC: external genitalia normal, no vulvar lesions, no cervical lesions, atrophic changes , stenotic os - UNABLE TO OBTAIN SAMPLE BIMANUAL: uterus normal size, shape and consistency, no adnexal masses, non-tender, and no cervical motion tenderness RECTOVAGINAL: deferred. NEURO: alert and oriented x3,exam grossly non-focal EXTREMITIES: normal ASSESSMENT/PLAN: Unable to complete PAP/ Stenotic OS 1) Health maintenance: Mammogram ordered Colon cancer screening: patient to discuss with PCP TSH/lipids/glucose: followed by PCP 2) Follow up one year or sooner as needed Muriel Lopze APRN.CNM documented in this encounter [facility] 11-22-2023 Telephone encounter Note Called and left vox Patient is scheduled December 21, 2023 at 2pm, sandra aviles, idalia prior Thank you Dee [facility] 11-22-2023 Miscellaneous Notes Called and left vox Patient is scheduled December 21, 2023 at 2pm, sandra aviles, idalia prior Thank you Dee [facility] or 11/22/23 Fu with me 4 weeks Kub prior ordered documented in this encounter [facility] 11-22-2023 Telephone encounter Note [facility] or 11/22/23 Fu with me 4 weeks Kub prior ordered [facility] 11-22-2023 Note HNO ID: [id number] Author: SPENSER GARDUNO APRN.COMMISSARY ASSISTANT Service: ? Author Type: Nurse Records Analyst Type: Anesthesia Procedure Notes Filed: 11/22/2023 08:18 Note Text: ANESTHESIOLOGY PROCEDURE NOTE PIV General Information Procedure Start Time/Medication Administration: 11/22/2023 7:55 AM Procedure End Time: 11/22/2023 7:55 AM Patient location: Pre surgery. Staffing COMMISSARY ASSISTANT: Spenser Garduno APRN.COMMISSARY ASSISTANT Performed by: CARLYN Preparation Sterility Preparation: hand hygiene performed prior to procedure, surgical cap used, skin prep agent completely dried prior to procedure Sterility Technique Not Completely Performed Due to Extreme Emergency: No Site Prep: Chloraprep Procedure Details Indication: need for IV access Needle Size/Type: 20 gauge angiocath Orientation: Right Location: Antecubital Imaging Guidance Used: No SIGNATURE: Spenser Garduno APRN.CRNA PATIENT NAME: Asia Hawley DATE: November 22, 2023 TIME: 8:17 AM CSN: [id number] [facility] 11-22-2023 Note HNO ID: [id number] Author: SPENSER GARDUNO APRN.COMMISSARY ASSISTANT Service: ? Author Type: Nurse Records Analyst Type: Anesthesia Procedure Notes Filed: 11/22/2023 08:17 Note Text: ANESTHESIOLOGY PROCEDURE NOTE Airway General Information Procedure Start Time/Medication Administration: 11/22/2023 8:10 AM Procedure End Time: 11/22/2023 8:10 AM Patient location during procedure: OR Timeout Performed Pre-procedure: timeout performed Consent Obtained: Yes Patient identity confirmed: arm band and patient Staffing COMMISSARY ASSISTANT: Spenser Garduno APRN.COMMISSARY ASSISTANT Performed by: CARLYN Indications and Patient Condition Indications for airway management: anesthesia Preoxygenated: yes anesthesia circuit Patient position: sniffing Method: asleep Cricoid Pressure: No Manual In-Line Stabilization: No Difficult Mask: No Final Airway Details Final airway type: supraglottic airway Number of attempts at approach: 1 Final Supraglottic Airway: i-gel Size 4 Seal Adequate: yes SIGNATURE: Spenser Garduno APRN.CRNA PATIENT NAME: Asia Hawley DATE: November 22, 2023 TIME: 8:17 AM CSN: [id number] [facility] 11-12-2023 Telephone encounter Note Emely MARTINEZ from [facility] re: Approved Botox 200units Botox approved every 90 days during 11/04/23-11/02/24 Approval number [id number] Will route to care coordinators. See encounter 10/20/23 [facility] 11-12-2023 Miscellaneous Notes Emely MARTINEZ from [facility] re: Approved Botox 200units Botox approved every 90 days during 11/04/23-11/02/24 Approval number [id number] Will route to care coordinators. See encounter 10/20/23 documented in this encounter [facility] 11-10-2023 Telephone encounter Note === PHARMACY TEAM ==== PEER TO PEER/APPEAL REQUESTED PROVIDER TO COMPLETE P2P or Appeal: APPEAL Payer: MMO DOS: TBD Drug Name(s) & HCPCS/CPTCode(s): J0585 BOTOX Dx code(s) submitted: N32.81 (ICD-10-CM) - OAB (overactive bladder) Provider: WILEY BENITEZ Peer to Peer/Appeal reason: 100 UNITS MAX DOSE Timeframe to complete: 60 DAYS Date sent to provider: 11/10/2023 Courtesy page sent (PRN): No APPEAL: [id number] FAX: [phone] PHONE: [phone] [facility] 11-10-2023 Miscellaneous Notes === PHARMACY TEAM ==== PEER TO PEER/APPEAL REQUESTED PROVIDER TO COMPLETE P2P or Appeal: APPEAL Payer: MMO DOS: TBD Drug Name(s) & HCPCS/CPTCode(s): J0585 BOTOX Dx code(s) submitted: N32.81 (ICD-10-CM) - OAB (overactive bladder) Provider: WILEY BENITEZ Peer to Peer/Appeal reason: 100 UNITS MAX DOSE Timeframe to complete: 60 DAYS Date sent to provider: 11/10/2023 Courtesy page sent (PRN): No APPEAL: [id number] FAX: [phone] PHONE: [phone] documented in this encounter [facility] 11-09-2023 Note HNO ID: [id number] Author: MATHEW YANG JR, MD Service: ? Author Type: Physician Type: Progress Notes Filed: 11/09/2023 09:54 Note Text: ESTABLISHED PATIENT OFFICE VISIT HPI Asia Hawley is a 63 year old female who presents refer for frequency/urgency. On no current meds. Has to void q 2 hours day and night. Ho colon resection. Has severe constipation. Has bm 1x/week. Seeing her general surgeon soon. Supposed to be taking fiber, however has not been. On probiotic however. Does not get uti's per patient. Drinks minimal caffeine. Has long ho microhematuria. No imaging ever done 05/23/19 - better with oxy 10 er. Has not really addressed constipation 05/21/20 - stable on oxy 10 er. Constipation better. Ua+ 05/20/20 - oxybutynin no longer helping. Stopped. Would like to try another medicine for now. Would consider PFT in the spring. 08/11/22 - now seeing dr. Mg for botox injection to be done soon. She noticed blood in the urine. Ct scan showed r upj obstruction and L lower pole 9mm renal calc. No fever. No uti. No flank pain. 11/03/22 - renal lasix scan discussed. No signs of obstruction. Kub did not show L lower pole 8mm calc. Options discussed including laser litho vs. Surveillance. 11/09/23 - doing ok since last seen. No stone episode. Kub shows 2 r renal calc. No pain. No fever. No uti. Opitons discussed. LAB: Creatinine Date Value Ref Range Status 06/11/2023 1.23 (H) 0.58 - 0.96 mg/dL Final No results found for: PSA Glucose, Urine Date Value 05/22/2022 Negative 03/22/2020 Negative mg/dL Bilirubin, Urine (no units) Date Value 05/22/2022 Negative 03/22/2020 Negative Ketones, Urine (no units) Date Value 05/22/2022 Negative 03/22/2020 Negative Specific [place], Ur (no units) Date Value 05/22/2022 1.010 03/22/2020 1.021 Hemoglobin/Blood,Ur Date Value 05/22/2022 3+ 03/22/2020 2+ pH, Urine (no units) Date Value 05/22/2022 7.0 03/22/2020 6.0 Protein, Urine (no units) Date Value 05/22/2022 1+ 03/22/2020 2+ Urobilinogen, Urine (EU) Date Value 04/13/2011 normal Nitrites (no units) Date Value 05/22/2022 Negative 03/22/2020 Negative Leukocytes (no units) Date Value 04/13/2011 large WBC, Urine Date Value 05/22/2022 6-10 /HPF 03/22/2020 0-5 /HPF Color/Appearance (comment:) Date Value 04/13/2011 tea/cloudy MEDICATIONS: propranolol (INDERAL) 10 mg tabletTake 1 tablet by mouth two times a day.Disp: 60 tabletRfl: 5 trospium (SANCTURA) 20 mg tabletTake 1 tablet by mouth two times a day.Disp: 60 tabletRfl: 5 (Patient taking differently: Take 20 mg by mouth two times a day.) estradiol (ESTRACE) 0.01 % (0.1 mg/gram) vaginal creamUse 1 g vaginally two times a week.Disp: 42.5 gRfl: 0 metoclopramide HCl (REGLAN) 5 mg tabletTake 1 tablet by mouth three times a day.Disp: 90 tabletRfl: 5 predniSONE (DELTASONE) 5 mg tabletTake 1 tablet by mouth once daily.Disp: 30 tabletRfl: 5 levothyroxine (SYNTHROID) 100 mcg tabletTake 1 tablet by mouth once daily. Take on empty stomachDisp: 90 tabletRfl: 3 mycophenolate Mofetil (CELLCEPT) 500 mg tabletTake 2 in am and one in pmDisp: 270 tabletRfl: 3 calcium carbonate 600 mg-cholecalciferol 400 units 600 mg-10 mcg (400 unit) tabTake 1 tablet by mouth two times a day.Disp: 180 tabletRfl: 1 aspirin, enteric coated (ASPIRIN, ENTERIC COATED) 81 mg EC tabletTake 81 mg by mouth once daily.Disp: Rfl: multivit-min/iron/folic acid/K (MULTI-DAY PLUS MINERALS ORAL)Take 1 capsule by mouth once daily.Disp: Rfl: L.acidophilus-L.rhamnosus (PROBIOTIC) 15 billion cell capsuleTake 1 capsule by mouth once daily.Disp: Rfl: REVIEW OF SYSTEMS Review of Systems Constitutional: Negative. Respiratory: Negative. Cardiovascular: Negative. Gastrointestinal: Negative. Genitourinary: Negative. Skin: Negative. Neurological: Negative. Psychiatric/Behavioral: Negative. 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 Heart Maternal Grandmother Stroke Maternal Grandmother Cancer Maternal Grandmother COLON Cancer Paternal Grandmother STOMACH Anesthesia Proble (more content not included)... [facility] 11-09-2023 History of Present illness Narrative ESTABLISHED PATIENT OFFICE VISIT HPI Asia Hawley is a 63 year old female who presents refer for frequency/urgency. On no current meds. Has to void q 2 hours day and night. Ho colon resection. Has severe constipation. Has bm 1x/week. Seeing her general surgeon soon. Supposed to be taking fiber, however has not been. On probiotic however. Does not get uti's per patient. Drinks minimal caffeine. Has long ho microhematuria. No imaging ever done 05/23/19 - better with oxy 10 er. Has not really addressed constipation 05/21/20 - stable on oxy 10 er. Constipation better. Ua+ 05/20/20 - oxybutynin no longer helping. Stopped. Would like to try another medicine for now. Would consider PFT in the spring. 08/11/22 - now seeing dr. Mg for botox injection to be done soon. She noticed blood in the urine. Ct scan showed r upj obstruction and L lower pole 9mm renal calc. No fever. No uti. No flank pain. 11/03/22 - renal lasix scan discussed. No signs of obstruction. Kub did not show L lower pole 8mm calc. Options discussed including laser litho vs. Surveillance. 11/09/23 - doing ok since last seen. No stone episode. Kub shows 2 r renal calc. No pain. No fever. No uti. Opitons discussed. LAB: Creatinine Date Value Ref Range Status 06/11/2023 1.23 (H) 0.58 - 0.96 mg/dL Final No results found for: PSA Glucose, Urine Date Value 05/22/2022 Negative 03/22/2020 Negative mg/dL Bilirubin, Urine (no units) Date Value 05/22/2022 Negative 03/22/2020 Negative Ketones, Urine (no units) Date Value 05/22/2022 Negative 03/22/2020 Negative Specific [place], Ur (no units) Date Value 05/22/2022 1.010 03/22/2020 1.021 Hemoglobin/Blood,Ur Date Value 05/22/2022 3+ 03/22/2020 2+ pH, Urine (no units) Date Value 05/22/2022 7.0 03/22/2020 6.0 Protein, Urine (no units) Date Value 05/22/2022 1+ 03/22/2020 2+ Urobilinogen, Urine (EU) Date Value 04/13/2011 normal Nitrites (no units) Date Value 05/22/2022 Negative 03/22/2020 Negative Leukocytes (no units) Date Value 04/13/2011 large WBC, Urine Date Value 05/22/2022 6-10 /HPF 03/22/2020 0-5 /HPF Color/Appearance (comment:) Date Value 04/13/2011 tea/cloudy MEDICATIONS: propranolol (INDERAL) 10 mg tablet^Take 1 tablet by mouth two times a day.^Disp: 60 tablet^Rfl: 5 trospium (SANCTURA) 20 mg tablet^Take 1 tablet by mouth two times a day.^Disp: 60 tablet^Rfl: 5 (Patient taking differently: Take 20 mg by mouth two times a day.) estradiol (ESTRACE) 0.01 % (0.1 mg/gram) vaginal cream^Use 1 g vaginally two times a week.^Disp: 42.5 g^Rfl: 0 metoclopramide HCl (REGLAN) 5 mg tablet^Take 1 tablet by mouth three times a day.^Disp: 90 tablet^Rfl: 5 predniSONE (DELTASONE) 5 mg tablet^Take 1 tablet by mouth once daily.^Disp: 30 tablet^Rfl: 5 levothyroxine (SYNTHROID) 100 mcg tablet^Take 1 tablet by mouth once daily. Take on empty stomach^Disp: 90 tablet^Rfl: 3 mycophenolate Mofetil (CELLCEPT) 500 mg tablet^Take 2 in am and one in pm^Disp: 270 tablet^Rfl: 3 calcium carbonate 600 mg-cholecalciferol 400 units 600 mg-10 mcg (400 unit) tab^Take 1 tablet by mouth two times a day.^Disp: 180 tablet^Rfl: 1 aspirin, enteric coated (ASPIRIN, ENTERIC COATED) 81 mg EC tablet^Take 81 mg by mouth once daily.^Disp: ^Rfl: multivit-min/iron/folic acid/K (MULTI-DAY PLUS MINERALS ORAL)^Take 1 capsule by mouth once daily.^Disp: ^Rfl: L.acidophilus-L.rhamnosus (PROBIOTIC) 15 billion cell capsule^Take 1 capsule by mouth once daily.^Disp: ^Rfl: REVIEW OF SYSTEMS Review of Systems Constitutional: Negative. Respiratory: Negative. Cardiovascular: Negative. Gastrointestinal: Negative. Genitourinary: Negative. Skin: Negative. Neurological: Negative. Psychiatric/Behavioral: Negative. 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 Heart Maternal Grandmother Stroke Maternal Grandmother Cancer Maternal Grandmother COLON Cancer Paternal Grandmother STOMACH Anesthesia Problems No Family History SOCIAL HISTORY Social History Tobacco Use Smoking status: Never Passive exposure: Never Smokeless tobacco: Never Tobacco comments: No one in household smokes. Smoker in childhood home. Vaping Use Vaping Use: Never used Substance Use Topics Alcohol use: Yes Comment: Rarely Drug use: No PHYSICAL EXAMINATION General appearance: Well appearing, alert, in no acute distress, and well-hydrated, well nourished Skin: Skin color, texture, turgor normal, no suspicious rashes or lesions Respiratory:+ effort Cardiovascular: Not examined GI: Normal abdominal exam, Abdomen soft, non-tender. No masses, organomegaly Musculoskeletal: Negative Neuro: Negative Genitourinary: not examined Impression: (N20.0) Kidney stone (primary encounter diagnosis) Plan: right ESWL All r/b/a of surgery discussed, infection, bleeding, damage to nearby structures, repeat surgery, stent placement, steinstrasse, kidney damage, surgery failure, , heart attack, stroke, deep vein thrombosis, pulmonary embolus. Patient verbalized understanding and agrees to proceed. Mathew Yang Jr, MD 11/09/2023 documented in this encounter [facility] 11-04-2023 History of Present illness Narrative Radiology Service Progress Note PATIENT NAME: Asia Hawley DATE OF SERVICE: November 04, 2023 TIME: 8:03 AM PATIENT IDENTITY VERIFICATION COMPLETED USING TWO (2) IDENTIFIERS: Name and Date of confirmed by patient verbally. FALL SCREENING: Has the patient had 2 falls in the last year or 1 fall with injury or currently using an Ambulatory Assistive Device (Walker, Cane, Wheelchair, Crutches, etc.)? No PATIENT GENDER DATA: Female. status: : No status: NO. PATIENT RELEVANT IMPLANT DATA REVIEWED: Not Applicable PATIENT PRESENTS WITH AN IMPLANTABLE OR ATTACHED AUDIO VISUAL SECRETARY: No RADIOLOGY DEPARTMENT: General X-ray: Exam(s) Completed: Abdomen X-Ray: Abdomen PERIPHERAL IV DATA: Not applicable SIGNED BY: RT Myrna(Denisse) November 04, 2023 8:03 AM documented in this encounter [facility] 11-04-2023 Note HNO ID: [id number] Author: ANIKA AVILA RT(R) Service: ? Author Type: Technologist Type: Progress Notes Filed: 11/04/2023 08:03 Note Text: Radiology Service Progress Note PATIENT NAME: Asia Hawley DATE OF SERVICE: November 04, 2023 TIME: 8:03 AM PATIENT IDENTITY VERIFICATION COMPLETED USING TWO (2) IDENTIFIERS: Name and Date of confirmed by patient verbally. FALL SCREENING: Has the patient had 2 falls in the last year or 1 fall with injury or currently using an Ambulatory Assistive Device (Walker, Cane, Wheelchair, Crutches, etc.)? No PATIENT GENDER DATA: Female. status: : No status: NO. PATIENT RELEVANT IMPLANT DATA REVIEWED: Not Applicable PATIENT PRESENTS WITH AN IMPLANTABLE OR ATTACHED AUDIO VISUAL SECRETARY: No RADIOLOGY DEPARTMENT: General X-ray: Exam(s) Completed: Abdomen X-Ray: Abdomen PERIPHERAL IV DATA: Not applicable SIGNED BY: RT Myrna(Denisse) November 04, 2023 8:03 AM [facility] 11-02-2023 Telephone encounter Note Cancelled appt for 11/02. Will wait to get 200 units approved. See TE on 10/19. Chandler Calle RN November 02, 2023 10:53 AM [facility] 11-02-2023 Miscellaneous Notes Cancelled appt for 11/02. Will wait to get 200 units approved. See TE on 10/19. Chandler Calle RN November 02, 2023 10:53 AM === PHARMACY TEAM ==== ADDITIONAL INFORMATION NEEDED/REQUESTED Case Submitted: No Request Type: Provider Date of Service: 11/03/2023 Additional Information Needed: PER POLICY MAX DOSE 100 UNITS (HOW WOULD YOU LIKE TO PROCEED) Request from Payor by: N/A Email Sent to: ENCOUNTER-WILEY BENITEZ Requested Clinicals/Information Sent: N/A documented in this encounter [facility] 11-02-2023 Telephone encounter Note === PHARMACY TEAM ==== ADDITIONAL INFORMATION NEEDED/REQUESTED Case Submitted: No Request Type: Provider Date of Service: 11/03/2023 Additional Information Needed: PER POLICY MAX DOSE 100 UNITS (HOW WOULD YOU LIKE TO PROCEED) Request from Payor by: N/A Email Sent to: ENCOUNTER-WILEY BENITEZ Requested Clinicals/Information Sent: N/A [facility] 11-02-2023 History of Present illness Narrative Radiology Service Progress Note PATIENT NAME: Asia Hawley DATE OF SERVICE: November 02, 2023 TIME: 1:12 PM PATIENT IDENTITY VERIFICATION COMPLETED USING TWO (2) IDENTIFIERS: Name and Date of confirmed by patient verbally. FALL SCREENING: Has the patient had 2 falls in the last year or 1 fall with injury or currently using an Ambulatory Assistive Device (Walker, Cane, Wheelchair, Crutches, etc.)? No PATIENT GENDER DATA: Female. status: : No status: NO. PATIENT RELEVANT IMPLANT DATA REVIEWED: Yes PATIENT PRESENTS WITH AN IMPLANTABLE OR ATTACHED AUDIO VISUAL SECRETARY: No RADIOLOGY DEPARTMENT: CT; Exam(s) Completed: Chest PERIPHERAL IV DATA: Not applicable SIGNED BY: RT Jonathon(R) November 02, 2023 1:12 PM documented in this encounter [facility] 11-02-2023 Note HNO ID: [id number] Author: CARA OVIEDO RT(R) Service: ? Author Type: Oven Roaster Type: Progress Notes Filed: 11/02/2023 13:12 Note Text: Radiology Service Progress Note PATIENT NAME: Asia Hawley DATE OF SERVICE: November 02, 2023 TIME: 1:12 PM PATIENT IDENTITY VERIFICATION COMPLETED USING TWO (2) IDENTIFIERS: Name and Date of confirmed by patient verbally. FALL SCREENING: Has the patient had 2 falls in the last year or 1 fall with injury or currently using an Ambulatory Assistive Device (Walker, Cane, Wheelchair, Crutches, etc.)? No PATIENT GENDER DATA: Female. status: : No status: NO. PATIENT RELEVANT IMPLANT DATA REVIEWED: Yes PATIENT PRESENTS WITH AN IMPLANTABLE OR ATTACHED AUDIO VISUAL SECRETARY: No RADIOLOGY DEPARTMENT: CT; Exam(s) Completed: Chest PERIPHERAL IV DATA: Not applicable SIGNED BY: RT Jonathon(R) November 02, 2023 1:12 PM [facility] 10-20-2023 Telephone encounter Note Botox referral received for 100 units -- 1st injection. Auth did not populate. Entered auth. Will monitor status. PPX antibiotics: Macrobid sent 10/19 to [facility] in [place] Blood thinners: asa 81 mg LV: 10/06 with Barley Plan: 1. Overactive bladder - Continue to adjust interstim based off [employer] branch sales and service representative's recommendations - Discussed r/b/a of trospium, including possible side effects of dry eye, dry mouth, constipation, cognitive side effects when used senior living. CrCl calculated to be 65 mL/min. Rx sent. If no improvement in 4 weeks, patient to send MyChart message for alternative medication option. Is considering repeating botox too. - Order placed for Pelvic Floor Physical Therapy - Letter provided for patient as she was summoned for jury duty and is unable to hold urine for more than 20 minutes now Called pt and verified name/. Offered 11/02 at 1:30pm. Pt accepted. Noted that if we can't get Botox approved by then I will give her a call 3-4 days prior to reschedule for a later date. 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 Chandler Calle RN October 20, 2023 9:50 AM [facility] 10-20-2023 Miscellaneous Notes Botox referral received for 100 units -- 1st injection. Auth did not populate. Entered auth. Will monitor status. PPX antibiotics: Macrobid sent 10/19 to [facility] in [place] Blood thinners: asa 81 mg LV: 10/06 with Barley Plan: 1. Overactive bladder - Continue to adjust interstim based off [employer] branch sales and service representative's recommendations - Discussed r/b/a of trospium, including possible side effects of dry eye, dry mouth, constipation, cognitive side effects when used senior living. CrCl calculated to be 65 mL/min. Rx sent. If no improvement in 4 weeks, patient to send MyChart message for alternative medication option. Is considering repeating botox too. - Order placed for Pelvic Floor Physical Therapy - Letter provided for patient as she was summoned for jury duty and is unable to hold urine for more than 20 minutes now Called pt and verified name/. Offered 11/02 at 1:30pm. Pt accepted. Noted that if we can't get Botox approved by then I will give her a call 3-4 days prior to reschedule for a later date. 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 Chandler Calle RN October 20, 2023 9:50 AM documented in this encounter [facility] 10-14-2023 Telephone encounter Note Pt willing to see Neuro at another location. Advised her to call in and schedule. Susana Bhardwaj MA [facility] 10-14-2023 Miscellaneous Notes Pt willing to see Neuro at another location. Advised her to call in and schedule. Susana Bhardwaj MA Awaiting pt reply to additional questions. Susana Bhardwaj MA documented in this encounter [facility] 10-14-2023 Telephone encounter Note Awaiting pt reply to additional questions. Susana Bhardwaj MA [facility] 10-14-2023 Instructions Jacqueline Carpenter APRN.SAMIR - 10/14/2023 7:13 AM EDT Start Propanolol 10 mg, take 1 tablet daily for 1 week then increase to twice daily Recommend consult with Neurology, Dr. Montero Follow up in 1 month if needed. documented in this encounter [facility] 10-14-2023 History of Present illness Narrative This is a 63 year old female who presents today with: Patient presents with: Acute Visit: Tremors in hands and mouth HISTORY OF PRESENT ILLNESS: Asia M Chandan is a 63 year old female. Patient presents with: Acute Visit: Tremors in hands and mouth Here in the office for tremors. Started about a year ago, iniatlly started in the right hand. Has now noticed both hands and mouth/chin. Difficulty with eating and drinking, hand tremors will spill contents. Difficulty writing. No shuffling gait or memory concerns. No family history of Parkinson's. 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, 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 Unspecified hypothyroidism PAST SURGICAL HISTORY Procedure Laterality Date ARTHRP INTERPOS INTERCARPAL/METACARPAL JOINTS Right 10/13/2017 Right thumb CMC arthroplasty with LRTI CAUTERY CERVIX CRYOCAUTERY INITIAL/REPEAT 1999 CHOLECYSTECTOMY Cholecystectomy COLONOSCOPY FLX DX W/COLLJ SPEC WHEN PFRMD 04/10/2009 COLONOSCOPY FLX DX W/COLLJ SPEC WHEN PFRMD 09/05/2014 Repeat 2024 COLONOSCOPY FLX DX W/COLLJ SPEC WHEN PFRMD 12/22/2017 Colonoscopy COLPOSCOPY CERVIX UPPER/ADJACENT VAGINA Multiple starting 1995 Colposcopy LAPAROSCOPY COLECTOMY PARTIAL W/ANASTOMOSIS 12/07/2009 diverticulitis LIG/TRNSXJ FLP TUBE ABDL/VAG APPR UNI/BI Tubal ligation LX PARTIAL COLECTOMY 12/23/2017 [facility] lap lysis of adhesions, left oopherectomy, right salpinoopherectomy, left salpingectomy, redo lap sigmoid colectomy w/ressection, lap mobilization of splenic flexure, lap appendectomy PAST SURGICAL HISTORY OF 10/2008 T9-L1 fusion, Dr. Lemon PAST SURGICAL HISTORY OF 10/24/2009 Removed T9-L1, 2 rods and 8 screws, Dr Lemon PAST SURGICAL HISTORY OF 11/2018 Hysteroscopy with D&C and Polypectomy with [employer] Truclear device PICC LINE INSERT/CONSULT 07/11/2018 THYMECTOMY PRTL/TOT TRANSCERVICAL APPR SPX 07/14/2018 WEDGE RESECT LUNG Right 03/25/2020 Right VATS wedge resection of upper, middle and lower lung for pulmonary infiltrates ALLERGIES Erythromycin, Hay Fever [Seasonal Allergies], and Zyrtec [Cetirizine Hcl] MEDICATIONS Current Outpatient Medications Medication Sig trospium (SANCTURA) 20 mg tablet Take 1 tablet by mouth two times a day. estradiol (ESTRACE) 0.01 % (0.1 mg/gram) vaginal cream Use 1 g vaginally two times a week. metoclopramide HCl (REGLAN) 5 mg tablet Take 1 tablet by mouth three times a day. predniSONE (DELTASONE) 5 mg tablet Take 1 tablet by mouth once daily. levothyroxine (SYNTHROID) 100 mcg tablet Take 1 tablet by mouth once daily. Take on empty stomach mycophenolate Mofetil (CELLCEPT) 500 mg tablet Take 2 in am and one in pm calcium carbonate 600 mg-cholecalciferol 400 units 600 mg-10 mcg (400 unit) tab Take 1 tablet by mouth two times a day. aspirin, enteric coated (ASPIRIN, ENTERIC COATED) 81 mg EC tablet Take 81 mg by mouth once daily. multivit-min/iron/folic acid/K (MULTI-DAY PLUS MINERALS ORAL) Take 1 capsule by mouth once daily. L.acidophilus-L.rhamnosus (PROBIOTIC) 15 billion cell capsule Take 1 capsule by mouth once daily. No current facility-administered medications for this visit. FAMILY HISTORY Problem Relation Age of Onset Hypertension Mother Thyroid Mother Heart Father Hypertension Father COPD Father Smoker. Heart Maternal Grandmother Stroke Maternal Grandmother Cancer Maternal Grandmother COLON Cancer Paternal Grandmother STOMACH Anesthesia Problems No Family History Social History Tobacco Use Smoking status: Never Smokeless tobacco: Never Tobacco comments: No one in household smokes. Smoker in childhood home. Vaping Use Vaping Use: Never used Substance Use Topics Alcohol use: Yes Comment: Rarely Drug use: No REVIEW OF SYSTEMS GENERAL: No weight loss, malaise or fevers/chills HEENT: Negative for frequent or significant headaches, No changes in hearing or vision. NECK: Negative for lumps, goiter, pain and significant neck swelling RESPIRATORY: Negative for cough, hemoptysis, wheezing, dyspnea or shortness of breath CARDIOVASCULAR: Negative for chest pain, leg swelling, orthopnea, or palpitations GI: No nausea, vomiting, or diarrhea/constipation. No hematochezia/melena. No heartburn or reflux symptoms. : No history of dysuria, frequency or incontinence MUSCULOSKELETAL: Negative for joint pain or swelling. SKIN: Negative for lesions, rash, and itching ENDOCRINE: Negative for cold or heat intolerance, polyuria, polydipsia and goiter NEURO: + Tremor MOOD: Negative for depression, anxiety, or suicidal ideation. EXAM: BP 98/66 Pulse 98 Resp 16 Wt 88.9 kg (196 lb) LMP 01/07/2011 SpO2 (!) 77% BMI 32.62 kg/m PHYSICAL EXAM: General Appearance: Well appearing, alert, in no acute distress, well-hydrated, well nourished. Skin: Skin color, texture, turgor normal, no suspicious rashes or lesions. Head: Normocephalic, no masses, lesions, tenderness or abnormalities. Eyes: Anicteric sclera. Pupils are equally round and reactive to light. Extraocular movements are intact. Lungs: Lungs clear to auscultation. No wheezing, rhonchi, rales. Heart: RRR without murmur, gallop, or rubs. No ectopy. Extremities: No deformities, edema, skin discoloration, clubbing or cyanosis. Good capillary refill. Peripheral Pulses: Normal, Capillary refill <2secs, strong peripheral pulses, Pulses palpable. Neurologic: Gait normal. Reflexes normal and symmetric. Sensation grossly intact., Positive findings: resting tremor. Good muscle strength in upper and lower extremities. ASSESSMENT/PLAN: 1. Tremor - ICD9: 781.0, ICD10: R25.1 - Denied wanting additional labs completed - Start Propranolol 10 mg BID - Recommend consult with Neurology. - PROPRANOLOL 10 MG TABLET - CONSULT TO NEUROLOGY Follow up in 1 month Discussed treatment plan and patient voices understanding. Patient's questions answered appropriately. Medications and potential side effects were discussed and patient voices understanding. Jacqueline Carpenter APRN.PARTY BUS DRIVER This note was partially generated using [employer] recognition system. Note was reviewed for accuracy. There may be minor misspellings or grammar miscues with [email or web address] voice recognition. documented [facility] [facility] 10[facility]2023 Note HNO ID: [id number] Author: JACQUELINE CARPENTER APRN.CNP Service: ? Author Type: Nurse Practitioner Type: Progress Notes Filed: 10/14/2023 07:46 Note Text: This is a 63 year old female who presents today with: Patient presents with: Acute Visit: Tremors in hands and mouth HISTORY OF PRESENT ILLNESS: Asia Hawley is a 63 year old female. Patient presents with: Acute Visit: Tremors in hands and mouth Here in the office for tremors. Started about a year ago, iniatlly started in the right hand. Has now noticed both hands and mouth/chin. Difficulty with eating and drinking, hand tremors will spill contents. Difficulty writing. No shuffling gait or memory concerns. No family history of Parkinson's. 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, 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 Unspecified hypothyroidism PAST SURGICAL HISTORY Procedure Laterality Date ARTHRP INTERPOS INTERCARPAL/METACARPAL JOINTS Right 10/13/2017 Right thumb CMC arthroplasty with LRTI CAUTERY CERVIX CRYOCAUTERY INITIAL/REPEAT 1999 CHOLECYSTECTOMY Cholecystectomy COLONOSCOPY FLX DX W/COLLJ SPEC WHEN PFRMD 04/10/2009 COLONOSCOPY FLX DX W/COLLJ SPEC WHEN PFRMD 09/05/2014 Repeat 2024 COLONOSCOPY FLX DX W/COLLJ SPEC WHEN PFRMD 12/22/2017 Colonoscopy COLPOSCOPY CERVIX UPPER/ADJACENT VAGINA Multiple starting 1995 Colposcopy LAPAROSCOPY COLECTOMY PARTIAL W/ANASTOMOSIS 12/07/2009 diverticulitis LIG/TRNSXJ FLP TUBE ABDL/VAG APPR UNI/BI Tubal ligation LX PARTIAL COLECTOMY 12/23/2017 [facility] lap lysis of adhesions, left oopherectomy, right salpinoopherectomy, left salpingectomy, redo lap sigmoid colectomy w/ressection, lap mobilization of splenic flexure, lap appendectomy PAST SURGICAL HISTORY OF 10/2008 T9-L1 fusion, Dr. Lemon PAST SURGICAL HISTORY OF 10/24/2009 Removed T9-L1, 2 rods and 8 screws, Dr Lemon PAST SURGICAL HISTORY OF 11/2018 Hysteroscopy with DANDC and Polypectomy with [employer]s and Nephew Truclear device PICC LINE INSERT/CONSULT 07/11/2018 THYMECTOMY PRTL/TOT TRANSCERVICAL APPR SPX 07/14/2018 WEDGE RESECT LUNG Right 03/25/2020 Right VATS wedge resection of upper, middle and lower lung for pulmonary infiltrates ALLERGIES Erythromycin, Hay Fever [Seasonal Allergies], and Zyrtec [Cetirizine Hcl] MEDICATIONS Current Outpatient Medications Medication Sig trospium (SANCTURA) 20 mg tablet Take 1 tablet by mouth two times a day. estradiol (ESTRACE) 0.01 % (0.1 mg/gram) vaginal cream Use 1 g vaginally two times a week. metoclopramide HCl (REGLAN) 5 mg tablet Take 1 tablet by mouth three times a day. predniSONE (DELTASONE) 5 mg tablet Take 1 tablet by mouth once daily. levothyroxine (SYNTHROID) 100 mcg tablet Take 1 tablet by mouth once daily. Take on empty stomach mycophenolate Mofetil (CELLCEPT) 500 mg tablet Take 2 in am and one in pm calcium carbonate 600 mg-cholecalciferol 400 units 600 mg-10 mcg (400 unit) tab Take 1 tablet by mouth two times a day. aspirin, enteric coated (ASPIRIN, ENTERIC COATED) 81 mg EC tablet Take 81 mg by mouth once daily. multivit-min/iron/folic acid/K (MULTI-DAY PLUS MINERALS ORAL) Take 1 capsule by mouth once daily. L.acidophilus-L.rhamnosus (PROBIOTIC) 15 billion cell capsule Take 1 capsule by mouth once daily. No current facility-administered medications for this visit. FAMILY HISTORY Problem Relation Age of Onset Hypertension Mother Thyroid Mother Heart Father Hypertension Father COPD Father Smoker. Heart Maternal Grandmother Stroke Maternal Grandmother Cancer Maternal Grandmother COLON Cancer Paternal Grandmother STOMACH Anesthesia Problems No Family History Social History Tobacco Use Smoking status: Never Smokeless tobacco: Never Tobacco comments: No one in household smokes. Smoker in childhood home. Vaping Use Vaping Use: Never used Substance Use Topics Alcohol use: Yes Comment: Rarely Drug use: No REVIEW OF SYSTEMS GENERAL: No weight loss, malaise or fevers/chills HEENT: Negative for frequent or significant headaches, No changes in hearing or vision. NECK: Negative for lumps, goiter, pain and significant neck swelling RESPIRATORY: Negative for cough, hemoptysis, wheezing, dyspnea or shortness of breath CARDIOVASCULAR: Negative for chest pain, leg swelling, o (more content not included)... [facility] 10-07-2023 Instructions Tariq Brooks APRN.PARTY BUS DRIVER - 10/07/2023 9:12 AM EDT Pelvic Floor Physical Therapy Call [phone] for an appointment for pelvic floor physical therapy. [email or web address] [facility] -- [facility] -- [facility] -- [facility], [facility] -- [facility] -- [facility] Administrative [place], [address] -- [facility] -- [facility] -- [facility] -- [facility] -- [facility] -- [facility] -- [facility] [place], [facility] -- [facility] -- [facility]gent [facility], [place] [facility] [place] -- [facility], [facility] -- [facility] and [facility] Medical Offices [place] -- [facility] [place] -- [facility] -- [facility] documented in this encounter [facility] 10-07-2023 History of Present illness Narrative Female Pelvic Medicine & Reconstructive Surgery Follow-Up Asia Hawley is a 63 year old female, who presents for a follow-up of vulvar burning, urinary frequency. History since last visit: Has been applying vaginal estrogen cream with applicator 3x/week, states vulvar burning has significantly improved. Still has occasional burning. Spoke with [employer], was put on program 6 at 1.4 x 1 month. Recently increased amplitude to 1.8 last week. Is now only waking up 1x/hour at night. Voiding every 20 mintues during the day. Has been missing grandchildren graduation/events due to urinary symptoms. Would like to try adjunct therapy. Urinary Incontinence: yes, some Voiding Dysfunction: no Urinary Frequency: yes, normal for her Urinary Urgency: yes, some Prolapse Symptoms: no Defecatory Dysfunction: no Fecal Incontinence: no Abnormal Bleeding: no Pain: no Abnormal Vaginal Discharge: no I have confirmed and edited as necessary, the PFSH obtained by others. Tariq Brooks APRN.PARTY BUS DRIVER Utilities Operator offered: Patient declines. OBJECTIVE: LMP 01/07/2011 General: Well appearing, alert, in no acute distress, well-hydrated, well nourished. Abdomen: Abdomen soft, non-tender Pelvic: Ext. Genitalia: No lesions or other abnormalities Vagina: atrophic epithelium, patient noted burning to be at posterior fourchette, atrophic tissue present Urethra: Normal Bimanual: No tenderness, No masses Rectovaginal: Deferred UA results: N/A Bladder scan: N/A Impression: Asia Hawley is a 63 year old female with OAB, vaginal burning, vaginal atrophy. Plan: 1. 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 CrCl calculated to be 65 mL/min. Rx sent. If no improvement in 4 weeks, patient to send [employer]Char[employer] message for alternative medication option. Is considering repeating botox too. - Order placed for Pelvic Floor Physical Therapy - Letter provided for patient as she was summoned for jury duty and is unable to hold urine for more than 20 minutes now 2. Vulvar burning/vaginal atrophy - Continue vaginal estrogen cream, encouraged patient to target burning on posterior fourchette with finger - BRAD/TRICHOMONAS NAAT Medical Decision Making: Problems: Low: Acute, uncomplicated illness or injury Moderate: 1+ chronic illnesses with change Risk: Moderate: Drug management Medical Decision Making Level: 4 - Moderate Tariq Brooks APRN.PARTY BUS DRIVER documented in this encounter [facility] 10-07-2023 Note HNO ID: [id number] Author: TARIQ BROOKS APRN.CNP Service: ? Author Type: Nurse Practitioner Type: Progress Notes Filed: 10/07/2023 09:40 Note Text: Female Pelvic Medicine AND Reconstructive Surgery Follow-Up Asia Hawley is a 63 year old female, who presents for a follow-up of vulvar burning, urinary frequency. History since last visit: Has been applying vaginal estrogen cream with applicator 3x/week, states vulvar burning has significantly improved. Still has occasional burning. Spoke with [employer], was put on program 6 at 1.4 x 1 month. Recently increased amplitude to 1.8 last week. Is now only waking up 1x/hour at night. Voiding every 20 mintues during the day. Has been missing grandchildren graduation/events due to urinary symptoms. Would like to try adjunct therapy. Urinary Incontinence: yes, some Voiding Dysfunction: no Urinary Frequency: yes, normal for her Urinary Urgency: yes, some Prolapse Symptoms: no Defecatory Dysfunction: no Fecal Incontinence: no Abnormal Bleeding: no Pain: no Abnormal Vaginal Discharge: no I have confirmed and edited as necessary, the PFSH obtained by others. Tariq Brooks APRN.PARTY BUS DRIVER Utilities Operator offered: Patient declines. OBJECTIVE: LMP 01/07/2011 General: Well appearing, alert, in no acute distress, well-hydrated, well nourished. Abdomen: Abdomen soft, non-tender Pelvic: Ext. Genitalia: No lesions or other abnormalities Vagina: atrophic epithelium, patient noted burning to be at posterior fourchette, atrophic tissue present Urethra: Normal Bimanual: No tenderness, No masses Rectovaginal: Deferred UA results: N/A Bladder scan: N/A Impression: Asia Hawley is a 63 year old female with OAB, vaginal burning, vaginal atrophy. Plan: 1. 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 CrCl calculated to be 65 mL/min. Rx sent. If no improvement in 4 weeks, patient to send [employer]Charge message for alternative medication option. Is considering repeating botox too. - Order placed for Pelvic Floor Physical Therapy - Letter provided for patient as she was summoned for jury duty and is unable to hold urine for more than 20 minutes now 2. Vulvar burning/vaginal atrophy - Continue vaginal estrogen cream, encouraged patient to target burning on posterior fourchette with finger - BRAD/TRICHOMONAS NAAT Medical Decision Making: Problems: Low: Acute, uncomplicated illness or injury Moderate: 1+ chronic illnesses with change Risk: Moderate: Drug management Medical Decision Making Level: 4 - Moderate Tariq Brooks APRN.[facility] 09-16-2023 History of Present illness Narrative Images from the original note were not included. . Respiratory Ovid Note Patient name: Asia Hawley PCP: Priyanka Smith MD CC: Follow-up NSIP HPI: Asia Hawley 63 year old female never smoker with PMH significant for thymoma, hypothyroidism, GERD, esophageal dysmotility, ILD/NSIP. 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 Chest CT showed peribronchovascular groundglass opacities and central traction bronchiectasis. 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 She was started on prednisone and CellCept. Required increase in her CellCept dose to 1500 mg a day after surveillance CT showed new groundglass opacities. She has been on maintenance 5 mg of prednisone a day as well. She states that for months she only took CellCept once a day has her medication cost had changed and was prohibitive. She is now getting her CellCept via [facility] and not using her insurance which is resulted in more manageable payment. She states she has been doing well until recently. She has had a persistent urinary tract infection. Culture was positive for Proteus mirabilis. She has been on 2 courses of antibiotics. From a respiratory standpoint she denies any symptoms of shortness of breath, cough, chest pain. She has not been ill with any upper respiratory infections nor required hospitalization. No adverse effects from her CellCept. DATA: PFT 11/2022: Pulmonary function testing is normal Labs: Component Ref Range & Units 4 mo ago (05/08/23) WBC 3.70 - 11.00 k/uL 11.50 High RBC 3.90 - 5.20 m/uL 5.15 Hemoglobin 11.5 - 15.5 g/dL 14.0 Hematocrit 36.0 - 46.0 % 44.8 MCV 80.0 - 100.0 fL 87.0 MCH 26.0 - 34.0 pg 27.2 MCHC 30.5 - 36.0 g/dL 31.3 RDW-CV 11.5 - 15.0 % 13.7 Platelet Count 150 - 400 k/uL 317 MPV 9.0 - 12.7 fL 10.5 Absolute nRBC <0.01 k/uL <0.01 Component Ref Range & Units 4 mo ago (05/08/23) Protein, Total 6.3 - 8.0 g/dL 7.4 Albumin 3.9 - 4.9 g/dL 4.2 Calcium, Total 8.5 - 10.2 mg/dL 10.0 Bilirubin, Total 0.2 - 1.3 mg/dL 0.5 Alkaline Phosphatase 34 - 123 U/L 88 AST 13 - 35 U/L 23 ALT 7 - 38 U/L 14 BUN 7 - 21 mg/dL 29 High Creatinine 0.58 - 0.96 mg/dL 1.33 High Sodium 136 - 144 mmol/L 138 Potassium 3.7 - 5.1 mmol/L 4.0 Chloride 97 - 105 mmol/L 102 CO2 22 - 30 mmol/L 25 Anion Gap 9 - 18 mmol/L 11 Estimated Glomerular Filtration Rate >=60 mL/min/1.73m 44 Low PAST MEDICAL HISTORY Diagnosis Date 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 estradiol (ESTRACE) 0.01 % (0.1 mg/gram) vaginal cream Use 1 g vaginally two times a week. metoclopramide HCl (REGLAN) 5 mg tablet Take 1 tablet by mouth three times a day. predniSONE (DELTASONE) 5 mg tablet Take 1 tablet by mouth once daily. levothyroxine (SYNTHROID) 100 mcg tablet Take 1 tablet by mouth once daily. Take on empty stomach mycophenolate Mofetil (CELLCEPT) 500 mg tablet Take 2 in am and one in pm calcium carbonate 600 mg-cholecalciferol 400 units 600 mg-10 mcg (400 unit) tab Take 1 tablet by mouth two times a day. aspirin, enteric coated (ASPIRIN, ENTERIC COATED) 81 mg EC tablet Take 81 mg by mouth once daily. multivit-min/iron/folic acid/K (MULTI-DAY PLUS MINERALS ORAL) Take 1 capsule by mouth once daily. L.acidophilus-L.rhamnosus (PROBIOTIC) 15 billion cell capsule Take 1 capsule by mouth once daily. Social History Tobacco Use Smoking status: Never Smokeless tobacco: Never Tobacco comments: No one in household smokes. Smoker in childhood home. Vaping Use Vaping Use: Never used Substance Use Topics Alcohol use: Yes Comment: Rarely Drug use: No FAMILY HISTORY Problem Relation Age of Onset Hypertension Mother Thyroid Mother Heart Father Hypertension Father COPD Father Smoker. Heart Maternal Grandmother Stroke Maternal Grandmother Cancer Maternal Grandmother COLON Cancer Paternal Grandmother STOMACH Anesthesia Problems No Family History PAST SURGICAL HISTORY Procedure Laterality Date ARTHRP INTERPOS INTERCARPAL/METACARPAL JOINTS Right 10/13/2017 Right thumb CMC arthroplasty with LRTI CAUTERY CERVIX CRYOCAUTERY INITIAL/REPEAT 1999 CHOLECYSTECTOMY Cholecystectomy COLONOSCOPY FLX DX W/COLLJ SPEC WHEN PFRMD 04/10/2009 COLONOSCOPY FLX DX W/COLLJ SPEC WHEN PFRMD 09/05/2014 Repeat 2024 COLONOSCOPY FLX DX W/COLLJ SPEC WHEN PFRMD 12/22/2017 Colonoscopy COLPOSCOPY CERVIX UPPER/ADJACENT VAGINA Multiple starting 1995 Colposcopy LAPAROSCOPY COLECTOMY PARTIAL W/ANASTOMOSIS 12/07/2009 diverticulitis LIG/TRNSXJ FLP TUBE ABDL/VAG APPR UNI/BI Tubal ligation LX PARTIAL COLECTOMY 12/23/2017 [facility] lap lysis of adhesions, left oopherectomy, right salpinoopherectomy, left salpingectomy, redo lap sigmoid colectomy w/ressection, lap mobilization of splenic flexure, lap appendectomy PAST SURGICAL HISTORY OF 10/2008 T9-L1 fusion, Dr. Lemon PAST SURGICAL HISTORY OF 10/24/2009 Removed T9-L1, 2 rods and 8 screws, Dr Lemon PAST SURGICAL HISTORY OF 11/2018 Hysteroscopy with D&C and Polypectomy with [employer]s and Nephew Truclear device PICC LINE INSERT/CONSULT 07/11/2018 THYMECTOMY PRTL/TOT TRANSCERVICAL APPR SPX 07/14/2018 WEDGE RESECT LUNG Right 03/25/2020 Right VATS wedge resection of upper, middle and lower lung for pulmonary infiltrates PMH, Social history, family history and surgical history reviewed and updated in EMR REVIEW OF SYSTEMS: CONSTITUTIONAL: No fevers, chills, nightsweats, unintended weight loss HEENT: Denies nasal congestion/sinus symptoms EYES: No diplopia or blurry vision. CARDIOVASCULAR: No chest pain, dyspnea, palpitations, orthopnea, PND, edema. PULM: See HPI GI: No dysphagia/odynophagia, problematic reflux, constipation, diarrhea : Persistent urinary tract infection NEURO: No new balance problems, peripheral weakness/paresthesias or numbness of concern. MUSC-SKEL: No joint pain, swelling, or erythema. INTEGUMENTARY: No new skin changes or rashes PHYSICAL EXAMINATION: BP 118/74 Pulse 91 Resp 16 Wt 198 lb (89.8kg) SpO2 97% LMP 01/07/2011 General Appearance: Obese female, NAD. Skin: Skin color, texture, turgor normal, no suspicious rashes or lesions. Head: Normocephalic, no masses, lesions, tenderness or abnormalities. Eyes: Sclera, conjunctiva normal. Oropharynx: No oral lesions or thrush. Neck: No JVD, no masses, no adenopathy. Lungs: Not labored, normal to percussion, crackles right base. Heart: Regular rate and rhythm, no murmurs or gallops. Extremities: No edema or clubbing. No nailbed changes Musculoskeletal: No synovitis. Lymph Nodes: No cervical lymphadenopathy and No supraclavicular lymphadenopathy. Assessment/Plan: 1. 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 Pulmonary function testing was normal -She is due for her chest CT next month -Recent laboratory testing shows increase in her creatinine which may be related to her current issues with urinary tract infection. She will need follow-up blood work has renal insufficiency may cause decreased clearance of CellCept 2. Current chronic use of systemic steroids -She will remain on low-dose 5 mg of prednisone -Recommend updated DEXA scan since she is at risk for osteoporosis 3. Long-term use of immunosuppressive drug -See #1 -Already has order for basic metabolic panel. Ordered CBC and liver panel Rowan Temple MD Respiratory Ovid documented in this encounter [facility] 09-16-2023 Note HNO ID: [id number] Author: ROWAN TEMPLE MD Service: ? Author Type: Physician Type: Progress Notes Filed: 09/16/2023 15:50 Note Text: . Respiratory Ovid Note Patient name: Asia Hawley PCP: Priyanka Smith MD CC: Follow-up NSIP HPI: Asia Hawley 63 year old female never smoker with PMH significant for thymoma, hypothyroidism, GERD, esophageal dysmotility, ILD/NSIP. 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 Chest CT showed peribronchovascular groundglass opacities and central traction bronchiectasis. 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 She was started on prednisone and CellCept. Required increase in her CellCept dose to 1500 mg a day after surveillance CT showed new groundglass opacities. She has been on maintenance 5 mg of prednisone a day as well. She states that for months she only took CellCept once a day has her medication cost had changed and was prohibitive. She is now getting her CellCept via [facility] and not using her insurance which is resulted in more manageable payment. She states she has been doing well until recently. She has had a persistent urinary tract infection. Culture was positive for Proteus mirabilis. She has been on 2 courses of antibiotics. From a respiratory standpoint she denies any symptoms of shortness of breath, cough, chest pain. She has not been ill with any upper respiratory infections nor required hospitalization. No adverse effects from her CellCept. DATA: PFT 11/2022: Pulmonary function testing is normal Labs: Component Ref Range AND Units 4 mo ago (05/08/23) WBC 3.70 - 11.00 k/uL 11.50 High RBC 3.90 - 5.20 m/uL 5.15 Hemoglobin 11.5 - 15.5 g/dL 14.0 Hematocrit 36.0 - 46.0 % 44.8 MCV 80.0 - 100.0 fL 87.0 MCH 26.0 - 34.0 pg 27.2 MCHC 30.5 - 36.0 g/dL 31.3 RDW-CV 11.5 - 15.0 % 13.7 Platelet Count 150 - 400 k/uL 317 MPV 9.0 - 12.7 fL 10.5 Absolute nRBC <0.01 k/uL <0.01 Component Ref Range AND Units 4 mo ago (05/08/23) Protein, Total 6.3 - 8.0 g/dL 7.4 Albumin 3.9 - 4.9 g/dL 4.2 Calcium, Total 8.5 - 10.2 mg/dL 10.0 Bilirubin, Total 0.2 - 1.3 mg/dL 0.5 Alkaline Phosphatase 34 - 123 U/L 88 AST 13 - 35 U/L 23 ALT 7 - 38 U/L 14 BUN 7 - 21 mg/dL 29 High Creatinine 0.58 - 0.96 mg/dL 1.33 High Sodium 136 - 144 mmol/L 138 Potassium 3.7 - 5.1 mmol/L 4.0 Chloride 97 - 105 mmol/L 102 CO2 22 - 30 mmol/L 25 Anion Gap 9 - 18 mmol/L 11 Estimated Glomerular Filtration Rate >=60 mL/min/1.73m? 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 estradiol (ESTRACE) 0.01 % (0.1 mg/gram) vaginal cream Use 1 g vaginally two times a week. metoclopramide HCl (REGLAN) 5 mg tablet Take 1 tablet by mouth three times a day. predniSONE (DELTASONE) 5 mg tablet Take 1 tablet by mouth once daily. levothyroxine (SYNTHROID) 100 mcg tablet Take 1 tablet by mouth once daily. Take on empty stomach mycophenolate Mofetil (CELLCEPT) 500 mg tablet Take 2 in am and one in pm calcium carbonate 600 mg-cholecalciferol 400 units 600 mg-10 mcg (400 unit) tab Take 1 tablet by mouth two times a day. aspirin, enteric coated (ASPIRIN, ENTERIC COATED) 81 mg EC tablet Take 81 mg by mouth once daily. multivit-min/iron/folic acid/K (MULTI-DAY PLUS MINERALS ORAL) Take 1 capsule by mouth once daily. L.acidophilus-L.rhamnosus (PROBIOTIC) 15 billion cell capsule Take 1 capsule by mouth once daily. Social History Tobacco Use Smoking status: Never Smokeless tobacco: Never Tobacco comments: No one in household smokes. Smoker in childhood home. Vaping Use Vaping Use: Never used Substance Use Topics Alcohol use: Yes Comment: Rarely Drug use: No FAMILY HISTORY Problem Relation Age of Onset Hypertension Mother Thyroid Mother Heart Father Hypertension Father COPD Father Smoker. (more content not included)... [facility] 09-09-2023 History of Present illness Narrative UROGYN TELEPHONE VISIT PROGRESS NOTE This is a telephone encounter initiated for an established patient, parent or guardian not originating from a related Evaluation & Management service provided within the previous 7 days nor leading to an Evaluation & Management service or procedure within the next 24 hours or soonest available appointment. Patient identified by and name. Asia Hawley has consented to this telephone encounter. Persons Present: patient 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/Reason: OAB and interstim follow up HPI: Urine culture from 09/01 positive, treated with bactrim x 3 days. States urinary frequency symptoms did not improve much with the bactrim. States she has burning now, states burning is not when she voids. This started Wednesday after she completing the antibiotics. Denies abnormal discharge and vaginal itching. States since last visit, she has been trying to figure out how much she leaks and thinks she is leaking more urine than originally reported. States [employer] rep contacted her, she has yet to call her back. Was waiting for today's visit. Plans to leave urine culture today and call rep back. She has thought more about botox, would consider trying 200 units if she does not have improvement with [employer] phone call. Data Reviewed: Most recent labs Assessment: (R35.0) Urinary frequency (primary encounter diagnosis) (N94.9) Vaginal burning Plan: - Leave urine culture - Discussed r/b/a of empirical treatment of yeast infection with diflucan vs monistat, patient prefers diflucan, rx sent - Contact [employer] Rep - Continue to think about 200 units of botox - After urine culture results and discussion with [employer] rep, will evaluate next steps. VCharge message sent to aid in communication Total Time Spent: 5-10 minutes Tariq Brooks APRN.CNP documented in this encounter [facility] 09-09-2023 Note HNO ID: [id number] Author: TARIQ BROOKS APRN.CNP Service: ? Author Type: Nurse Practitioner Type: Progress Notes Filed: 09/09/2023 09:15 Note Text: UROGYN TELEPHONE VISIT PROGRESS NOTE This is a telephone encounter initiated for an established patient, parent or guardian not originating from a related Evaluation AND Management service provided within the previous 7 days nor leading to an Evaluation AND Management service or procedure within the next 24 hours or soonest available appointment. Patient identified by and name. Asia Hawley has consented to this telephone encounter. Persons Present: patient 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/Reason: OAB and interstim follow up HPI: Urine culture from 09/01 positive, treated with bactrim x 3 days. States urinary frequency symptoms did not improve much with the bactrim. States she has burning now, states burning is not when she voids. This started Wednesday after she completing the antibiotics. Denies abnormal discharge and vaginal itching. States since last visit, she has been trying to figure out how much she leaks and thinks she is leaking more urine than originally reported. States [employer] rep contacted her, she has yet to call her back. Was waiting for today's visit. Plans to leave urine culture today and call rep back. She has thought more about botox, would consider trying 200 units if she does not have improvement with [employer] phone call. Data Reviewed: Most recent labs Assessment: (R35.0) Urinary frequency (primary encounter diagnosis) (N94.9) Vaginal burning Plan: - Leave urine culture - Discussed r/b/a of empirical treatment of yeast infection with diflucan vs monistat, patient prefers diflucan, rx sent - Contact [employer] Rep - Continue to think about 200 units of botox - After urine culture results and discussion with [employer] rep, will evaluate next steps. [employer]on[employer] message sent to aid in communication Total Time Spent: 5-10 minutes Tariq Brooks APRN.CNP [facility] 09-02-2023 History of Present illness Narrative Female Pelvic Medicine & Reconstructive Surgery Follow-Up Asia Hawley is a 63 year old female, who presents for a follow-up of urinary incontinence, urinary urgency, urinary frequency. AMAN on 02/25/2023 with me: ASSESMENT: Asia Hawley is a 62 year old female who is post-op; stable and doing well post-operative course uncomplicated PLAN: - Increased amplitude to 2.0, patient tolerate increase well, denied sensation of change after a few moments - Reviewed how to increase amplitude and change program with patient, advised her to give every change about 2 weeks before making additional changes - Urine culture sent, patient prefers to wait for culture for antibiotics History since last visit: Here today with . States since last visit, she has tried all 7 interstim programs, advancing each in amplitude until she could not tolerate any higher. States some programs provided very minimal relief, others provided no relief. She states she tried calling Mary (Interstim Rep), but never heard back. Voiding every 20-30 minutes during the day, voiding every 1 hour during the night. Is producing urine at these voids. If she cannot find restroom, will leak urine. When she leaks, this will be a small to large amount. She changes pad 3-4 x/day. Does not leak in sleep. Drinks about 16 oz water, 8 oz of water or tea/lemonade, 8 oz milk. Does have some burning with urination when she drinks a bladder irritant. States the temporary PNE worked very well for her and this implant also worked well for the first week then she got a UTI. She received treatment but only had minimal improvement of urinary symptoms. Denies falls. Interstim placed 01/28/2023. Tried myrbetriq and oxybutynin without relief, tried 100 units of botox without improvement on 09/14/2022 and then proceeded with interstim, did not try 200 units. Does have a large kidney stone found on CT in 07/2022, follows with Dr. Yang. CrCl 67 mL/min. Has had recent CT urogram and cystoscopy (2022). Cystoscopy from 09/14/[address] Mg: IMPRESSION: Erythematous bladder with petechiae and bleeding upon distension s/p 100units Botox Interstim interrogation: Battery: Ok Impendence check: negative Currently on program 5, 5.3 Urinary Incontinence: yes, sometimes Voiding Dysfunction: no Urinary Frequency: yes, Urinary Urgency: yes, Prolapse Symptoms: no Defecatory Dysfunction: no Fecal Incontinence: no Abnormal Bleeding: no Pain: no Abnormal Vaginal Discharge: no I have confirmed and edited as necessary, the PFSH obtained by others. Tariq Brooks APRN.PARTY BUS DRIVER Utilities Operator offered: Patient declines. OBJECTIVE: BP 102/72 LMP 01/07/2011 General: Well appearing, alert, in no acute distress, well-hydrated, well nourished. Urine dip results: moderate blood, protein, large leukocytes Bladder scan: 0 ml Impression: Asia Hawley is a 63 year old female with OAB, urinary frequency, interstim in place. Plan: - Urine culture sent - Discussed r/b/a of empirical treatment with bactrim, rx sent. If urine culture positive, will consider extending course of treatment - If urine culture negative and no improvement of symptoms, will consider imaging to confirm placement - Patient considering medication management vs 200 units of botox - Phone number for interstim rep, Richie, given to patient. Patient to call next week if symptoms do not improve despite antibiotics - Follow up in 1 week for virtual visit Medical Decision Making: Problems: Moderate: 2+ stable chronic illnesses Risk: Moderate: Drug management Medical Decision Making Level: 4 - Moderate Tariq Brooks APRN.CNP documented in this encounter [facility] 09-02-2023 Note HNO ID: [id number] Author: TARIQ BROOKS APRN.CNP Service: ? Author Type: Nurse Practitioner Type: Progress Notes Filed: 09/02/2023 09:15 Note Text: Female Pelvic Medicine AND Reconstructive Surgery Follow-Up Asia Hawley is a 63 year old female, who presents for a follow-up of urinary incontinence, urinary urgency, urinary frequency. AMAN on 02/25/2023 with me: ASSESMENT: Asia Hawley is a 62 year old female who is post-op; stable and doing well post-operative course uncomplicated PLAN: - Increased amplitude to 2.0, patient tolerate increase well, denied sensation of change after a few moments - Reviewed how to increase amplitude and change program with patient, advised her to give every change about 2 weeks before making additional changes - Urine culture sent, patient prefers to wait for culture for antibiotics History since last visit: Here today with . States since last visit, she has tried all 7 interstim programs, advancing each in amplitude until she could not tolerate any higher. States some programs provided very minimal relief, others provided no relief. She states she tried calling Mary (Interstim Rep), but never heard back. Voiding every 20-30 minutes during the day, voiding every 1 hour during the night. Is producing urine at these voids. If she cannot find restroom, will leak urine. When she leaks, this will be a small to large amount. She changes pad 3-4 x/day. Does not leak in sleep. Drinks about 16 oz water, 8 oz of water or tea/lemonade, 8 oz milk. Does have some burning with urination when she drinks a bladder irritant. States the temporary PNE worked very well for her and this implant also worked well for the first week then she got a UTI. She received treatment but only had minimal improvement of urinary symptoms. Denies falls. Interstim placed 01/28/2023. Tried myrbetriq and oxybutynin without relief, tried 100 units of botox without improvement on 09/14/2022 and then proceeded with interstim, did not try 200 units. Does have a large kidney stone found on CT in 07/2022, follows with Dr. Yang. CrCl 67 mL/min. Has had recent CT urogram and cystoscopy (2022). Cystoscopy from 09/14/[address] Mg: IMPRESSION: Erythematous bladder with petechiae and bleeding upon distension s/p 100units Botox Interstim interrogation: Battery: Ok Impendence check: negative Currently on program 5, 5.3 Urinary Incontinence: yes, sometimes Voiding Dysfunction: no Urinary Frequency: yes, Urinary Urgency: yes, Prolapse Symptoms: no Defecatory Dysfunction: no Fecal Incontinence: no Abnormal Bleeding: no Pain: no Abnormal Vaginal Discharge: no I have confirmed and edited as necessary, the PFSH obtained by others. Tariq Brooks APRN.PARTY BUS DRIVER Utilities Operator offered: Patient declines. OBJECTIVE: BP 102/72 LMP 01/07/2011 General: Well appearing, alert, in no acute distress, well-hydrated, well nourished. Urine dip results: moderate blood, protein, large leukocytes Bladder scan: 0 ml Impression: Asia Hawley is a 63 year old female with OAB, urinary frequency, interstim in place. Plan: - Urine culture sent - Discussed r/b/a of empirical treatment with bactrim, rx sent. If urine culture positive, will consider extending course of treatment - If urine culture negative and no improvement of symptoms, will consider imaging to confirm placement - Patient considering medication management vs 200 units of botox - Phone number for interstim rep, Richie, given to patient. Patient to call next week if symptoms do not improve despite antibiotics - Follow up in 1 week for virtual visit Medical Decision Making: Problems: Moderate: 2+ stable chronic illnesses Risk: Moderate: Drug management Medical Decision Making Level: 4 - Moderate Tariq Brooks APRN.PARTY BUS DRIVER [facility] 09-01-2023 Miscellaneous Notes Refill request received via VCharge. Last seen 11/26/21. Is scheduled for upcoming annual exam on 11/29/23. Hilary Sandoval RN documented in this encounter [facility] 08-19-2023 Miscellaneous Notes August 20, 2023 PID: [id number] Asia Hawley [address] [place] [address] Dear Ms. Hawley, We are pleased to inform you that the results of your recent breast imaging exam on 08/18/2023 are normal. Early detection of cancer is very important. We also understand recommendations regarding breast cancer screening are controversial. Please discuss with your primary care provider which strategy is best for you and whether a mammogram is right for you. Your imaging studies and report will be kept on file at [facility] as part of your permanent medical record and are available for your continuing care. Thank you for allowing us to help in meeting your health care needs. Sincerely, Dr. Romero Interpreting Radiologist [facility] (Normal over 40) documented in this encounter [facility] 08-18-2023 History of Present illness Narrative Radiology Service Progress Note PATIENT NAME: Asia Hawley DATE OF SERVICE: August 18, 2023 TIME: 9:15 AM PATIENT IDENTITY VERIFICATION COMPLETED USING TWO (2) IDENTIFIERS: Name and Date of confirmed by patient verbally. FALL SCREENING: Has the patient had 2 falls in the last year or 1 fall with injury or currently using an Ambulatory Assistive Device (Walker, Cane, Wheelchair, Crutches, etc.)? No PATIENT GENDER DATA: Female. status: : No status: NO. PATIENT RELEVANT IMPLANT DATA REVIEWED: Not Applicable PATIENT PRESENTS WITH AN IMPLANTABLE OR ATTACHED AUDIO VISUAL SECRETARY: No RADIOLOGY DEPARTMENT: Mammography PERIPHERAL IV DATA: Not applicable SIGNED BY: Marissa Rivera August 18, 2023 9:15 AM documented in this encounter [facility] 08-18-2023 Note HNO ID: [id number] Author: MT COOK Mammo Tech Service: ? Author Type: Oven Roaster Type: Progress Notes Filed: 08/18/2023 09:32 Note Text: Radiology Service Progress Note PATIENT NAME: Asia Hawley DATE OF SERVICE: August 18, 2023 TIME: 9:15 AM PATIENT IDENTITY VERIFICATION COMPLETED USING TWO (2) IDENTIFIERS: Name and Date of confirmed by patient verbally. FALL SCREENING: Has the patient had 2 falls in the last year or 1 fall with injury or currently using an Ambulatory Assistive Device (Walker, Cane, Wheelchair, Crutches, etc.)? No PATIENT GENDER DATA: Female. status: : No status: NO. PATIENT RELEVANT IMPLANT DATA REVIEWED: Not Applicable PATIENT PRESENTS WITH AN IMPLANTABLE OR ATTACHED AUDIO VISUAL SECRETARY: No RADIOLOGY DEPARTMENT: Mammography PERIPHERAL IV DATA: Not applicable SIGNED BY: [place] Toopher August 18, 2023 9:15 AM [facility] 08-09-2023 Miscellaneous Notes Order filed Priyanka Smith MD Pended orders. Previous order was ordered by DENTAL MOLD MAKER. Tess Persaud Ma, Patient scheduled mammogram screening with available order. Patient previously had mammogram screening with [facility]. Please resubmit the appropriate order if necessary. documented in this encounter [facility] 08-09-2023 Miscellaneous Notes Patient electronically requesting refills as follows: Requested Prescriptions Pending Prescriptions Disp Refills metoclopramide HCl (REGLAN) 5 mg tablet 90 tablet 5 Sig: Take 1 tablet by mouth three times a day. predniSONE (DELTASONE) 5 mg tablet 30 tablet 5 Sig: Take 1 tablet by mouth once daily. Please review and advise. Karla Stroud MA documented in this encounter [facility] 06-22-2023 History of Present illness Narrative Asia Hawley is a 63 year old female here for a Medicare wellness visit. Medicare Health Risk Assessment General Health Good Exercise: Minutes/Day 0 min Exercise: Days/Week 0 days Alcohol: Daily Use Monthly or less Alcohol: Drinks/Day Patient does not drink Alcohol: 6 or more drinks Never Feel off balance No Concerns: Teeth/Dentures Yes (has couple chipped teeth) Concerns: Sexual function No Troubled by feelings None of the above Frequency: Eating healthy diet Several days ADLs requiring help None of the above Safety precautions in home/vehicle Yes Smoke, vape, chews tobacco No Difficulty hearing No Difficulty seeing No Current Providers Specialists: I have reviewed specialist-related care of the patient in the medical record. Current care team: Patient Care Team: Priyanka Smith MD as PCP - General (Family Medicine) Dr. Temple - Pulmonary Dr. Mg/Tariq Brooks - DENTAL MOLD MAKER Dr. Yang - Urology Medical/Family history review Reviewed and updated problem list, medical/surgical/family/social history, medications, and allergies. Opioid use review Opioid Medications (last 90 days) Some values may be hidden. Unless noted otherwise, only the newest values recorded on each date are displayed. Opioid Medications No data to display. Depression screening Depression Screening PHQ-2 Score PHQ-9 Score YOVANY-2 Total Score 06/22/2022 0 - - Depression screening tool completed and reviewed. Based on score and interview, patient is not at risk for depression. Screening tool discussed with patient, and I recommended no further intervention at this time. Cognitive screening Mini Cog Score: 5 Cognitive screening reviewed and no further action needed (score 3-5) Functional Observation Was the patient's Timed Up & Go test unsteady or ? 12 seconds? No Advance Care Planning Patient did not wish or was not able to name a surrogate decision maker or provide an advance care plan Pt does not have Advanced Directives/Living Will Measurements BP 118/78 Pulse 72 Resp 18 Ht 5' 5 (1.65m) Wt 206 lb 6.4 oz (93.6kg) LMP 01/07/2011 BMI 34.35 kg/(m^2). Additional screenings: Vision Screening Right eye - Without correction: With correction: 20/25 Left eye - Without correction: With correction: 20/25 Both eyes - Without correction: With correction: 20/25 Comments: Color normal Assessment/Plan Medicare annual wellness visit, initial (Z00.00) - Counseled on healthy diet and regular exercise - Fall avoidance information provided - Personalized prevention plan provided Follow up in 1 year Priyanka Smith MD 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 Patient presents with: Medicare Wellness Exam HPI Asia Hawley is a 63 year old female who presents here today for 6 month follow up, in addition to Medicare Wellness. Thyroid: Taking Synthroid 100 mcg daily. Doing well on this dosage. Hx of low sodium/potassium, monitored through routine labs. Elevated BUN and Creatinine on previous labs, continue monitoring. Glucose - Elevated glucose, currently on no medications. Does watch diet, does eat home cooked meals, no processed foods. Drinks a lot of water, no pop. Denies much exercise in her diet. Pulmonary - Follows with Dr. Temple. Hx of ILD/NSIP. On current regimen of Cellcept 500 mg bid, Reglan 5 mg and Prednisone 5 mg once daily. Does CT scan of lungs yearly for monitoring. Past medical history, appointments, medications, allergies reviewed. 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 Unspecified hypothyroidism Previous Surgical History PAST SURGICAL HISTORY Procedure Laterality Date ARTHRP INTERPOS INTERCARPAL/METACARPAL JOINTS Right 10/13/2017 Right thumb CMC arthroplasty with LRTI CAUTERY CERVIX CRYOCAUTERY INITIAL/REPEAT 1999 CHOLECYSTECTOMY Cholecystectomy COLONOSCOPY FLX DX W/COLLJ SPEC WHEN PFRMD 04/10/2009 COLONOSCOPY FLX DX W/COLLJ SPEC WHEN PFRMD 09/05/2014 Repeat 2024 COLONOSCOPY FLX DX W/COLLJ SPEC WHEN PFRMD 12/22/2017 Colonoscopy COLPOSCOPY CERVIX UPPER/ADJACENT VAGINA Multiple starting 1995 Colposcopy LAPAROSCOPY COLECTOMY PARTIAL W/ANASTOMOSIS 12/07/2009 diverticulitis LIG/TRNSXJ FLP TUBE ABDL/VAG APPR UNI/BI Tubal ligation LX PARTIAL COLECTOMY 12/23/2017 [facility] lap lysis of adhesions, left oopherectomy, right salpinoopherectomy, left salpingectomy, redo lap sigmoid colectomy w/ressection, lap mobilization of splenic flexure, lap appendectomy PAST SURGICAL HISTORY OF 10/2008 T9-L1 fusion, Dr. Lemon PAST SURGICAL HISTORY OF 10/24/2009 Removed T9-L1, 2 rods and 8 screws, Dr Lemon PAST SURGICAL HISTORY OF 11/2018 Hysteroscopy with D&C and Polypectomy with [employer] Truclear device PICC LINE INSERT/CONSULT 07/11/2018 THYMECTOMY PRTL/TOT TRANSCERVICAL APPR SPX 07/14/2018 WEDGE RESECT LUNG Right 03/25/2020 Right VATS wedge resection of upper, middle and lower lung for pulmonary infiltrates Family History FAMILY HISTORY Problem Relation Age of Onset Hypertension Mother Thyroid Mother Heart Father Hypertension Father COPD Father Smoker. Heart Maternal Grandmother Stroke Maternal Grandmother Cancer Maternal Grandmother COLON Cancer Paternal Grandmother STOMACH Anesthesia Problems No Family History Patient Allergies ALLERGIES Allergen Reactions Environmental [Othe* ? what=congestion Erythromycin Diarrhea Hay Fever [Seasonal* Zyrtec [Cetirizine * Itching Current Medications Current Outpatient Medications on File Prior to Visit Medication Sig levothyroxine (SYNTHROID) 100 mcg tablet Take 1 tablet by mouth once daily. Take on empty stomach mycophenolate Mofetil (CELLCEPT) 500 mg tablet Take 2 in am and one in pm calcium carbonate 600 mg-cholecalciferol 400 units 600 mg-10 mcg (400 unit) tab Take 1 tablet by mouth two times a day. predniSONE (DELTASONE) 5 mg tablet Take 1 tablet by mouth once daily. aspirin, enteric coated (ASPIRIN, ENTERIC COATED) 81 mg EC tablet Take 81 mg by mouth once daily. multivit-min/iron/folic acid/K (MULTI-DAY PLUS MINERALS ORAL) Take 1 capsule by mouth once daily. L.acidophilus-L.rhamnosus (PROBIOTIC) 15 billion cell capsule Take 1 capsule by mouth once daily. metoclopramide HCl (REGLAN) 5 mg tablet Take 1 tablet by mouth three times daily. estradiol (ESTRACE) 0.01 % (0.1 mg/gram) vaginal cream Use 1 g vaginally two times a week. No current facility-administered medications on file prior to visit. Social History Social History Tobacco Use Smoking status: Never Smokeless tobacco: Never Tobacco comments: No one in household smokes. Smoker in childhood home. Vaping Use Vaping Use: Never used Substance Use Topics Alcohol use: Yes Comment: Rarely Drug use: No EXAM: BP 118/78 (BP Site: Left Arm, BP Position: Sitting, BP Cuff Size: Regular Adult) Pulse 72 Resp 18 Ht 165.1 cm (5' 5 ) Wt 93.6 kg (206 lb 6.4 oz) LMP 01/07/2011 BMI 34.35 kg/m General Appearance: Well appearing, alert, in no acute distress, well-hydrated, well nourished. and Obese. Neck: Supple, no adenopathy; thyroid symmetric, normal size, no bruits. Lungs: Lungs clear to auscultation. No wheezing, rhonchi, rales.. Heart: RRR without murmur, gallop, or rubs. No ectopy. Health Maintenance List RSV Vaccine(1 - 1-dose 60+ series) Never done Covid-19 Vaccine() due on 04/21/2023 Advance Directive Discussion Never done Depression Assessment due on 05/17/2023 Mammogram Screening due on 07/24/2023 HIV Screening due on 12/23/2023 Annual PCP Team Chronic Disease Visit due on 12/23/2023 Hemoglobin/Hematocrit due on 05/08/2024 Serum Creatinine due on 06/11/2024 Lipid Screening due on 08/28/2024 Diabetes Screening due on 06/11/2026 Colorectal Cancer Screening due on 12/23/2027 DTaP,Tdap,Td Vaccine(4 - Td or Tdap) due on 03/01/2033 Bone Density Screening Completed Influenza Vaccine Completed Hepatitis C Screening Completed Shingrix Vaccine Completed Pneumococcal Vaccine: 65+ Completed HPV Vaccine Aged Out Pap Testing Discontinued Data reviewed Appointment on 06/11/2023 Component Date Value TSH 06/11/2023 1.600 Glucose 06/11/2023 117 (H) BUN 06/11/2023 29 (H) Creatinine 06/11/2023 1.23 (H) Sodium 06/11/2023 139 Potassium 06/11/2023 5.1 Chloride 06/11/2023 104 CO2 06/11/2023 25 Anion Gap 06/11/2023 10 Calcium, Total 06/11/2023 10.1 Estimated Glomerular Rm* 06/11/2023 49 (L) Appointment on 05/08/2023 Component Date Value Protein, Total 05/08/2023 7.4 Albumin 05/08/2023 4.2 Calcium, Total 05/08/2023 10.0 Bilirubin, Total 05/08/2023 0.5 Alkaline Phosphatase 05/08/2023 88 AST 05/08/2023 23 ALT 05/08/2023 14 Glucose 05/08/2023 84 BUN 05/08/2023 29 (H) Creatinine 05/08/2023 1.33 (H) Sodium 05/08/2023 138 Potassium 05/08/2023 4.0 Chloride 05/08/2023 102 CO2 05/08/2023 25 Anion Gap 05/08/2023 11 Estimated Glomerular Rm* 05/08/2023 44 (L) WBC 05/08/2023 11.50 (H) RBC 05/08/2023 5.15 Hemoglobin 05/08/2023 14.0 Hematocrit 05/08/2023 44.8 MCV 05/08/2023 87.0 MCH 05/08/2023 27.2 MCHC 05/08/2023 31.3 RDW-CV 05/08/2023 13.7 Platelet Count 05/08/2023 317 MPV 05/08/2023 10.5 Absolute nRBC 05/08/2023 <0.01 ASSESSMENT/PLAN: 1. Hypothyroidism, unspecified type - ICD9: 244.9, ICD10: E03.9 - Instructed patient on importance of taking on an empty stomach either first thing in the morning or at bedtime. - continue current dose of Synthroid - TSH BLD 2. ILD (interstitial lung disease) (HCC) - ICD9: 515, ICD10: J84.9 Follow with Pulm Continue current medications. 3. Low sodium levels - ICD9: 276.1, ICD10: E87.1 Stable; monitor - BASIC METABOLIC PNL 4. OAB (overactive bladder) - ICD9: 596.51, ICD10: N32.81 5. Encounter for screening mammogram for malignant neoplasm of breast - ICD9: V76.12, ICD10: Z12.31 - CHYNA SCREENING 7. Stage 3a chronic kidney disease (HCC) - ICD9: 585.3, ICD10: N18.31 - eGFR: 49 Stable Monitor 8. Obesity, Class I, BMI 30-34.9 - ICD9: 278.00, ICD10: E66.9 Lifestyle Follow up in 6 months with labs. I agree with the 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, ROS, and Past Histories independently gathered by the clinical it support consultant and the remaining scribed note accurately describes my personal service to the patient. Medical Decision Making: Problems: Moderate: 2+ stable chronic illnesses Data: Unique test result(s) reviewed: 2 Unique test(s) ordered: 2 Risk: Moderate: Drug management Medical Decision Making Level: 4 - Moderate Priyanka Smith MD The documentation for this note was completed by Tess Persaud Ma acting as scribe for Priyanka Smith MD. June 22, 2023 9:18 AM. Tess Persaud Ma documented in this encounter [facility] 06-22-2023 Note HNO ID: [id number] Author: PRIYANKA SMITH MD Service: ? Author Type: Physician Type: Progress Notes Filed: 06/22/2023 09:46 Note Text: Asia Hawley is a 63 year old female here for a Medicare wellness visit. Medicare Health Risk Assessment General Health Good Exercise: Minutes/Day 0 min Exercise: Days/Week 0 days Alcohol: Daily Use Monthly or less Alcohol: Drinks/Day Patient does not drink Alcohol: 6 or more drinks Never Feel off balance No Concerns: Teeth/Dentures Yes (has couple chipped teeth) Concerns: Sexual function No Troubled by feelings None of the above Frequency: Eating healthy diet Several days ADLs requiring help None of the above Safety precautions in home/vehicle Yes Smoke, vape, chews tobacco No Difficulty hearing No Difficulty seeing No Current Providers Specialists: I have reviewed specialist-related care of the patient in the medical record. Current care team: Patient Care Team: Priyanka Smith MD as PCP - General (Family Medicine) Dr. Temple - Pulmonary Dr. Mg/Tariq Brooks - DENTAL MOLD MAKER Dr. Yang - Urology Medical/Family history review Reviewed and updated problem list, medical/surgical/family/social history, medications, and allergies. Opioid use review Opioid Medications (last 90 days) Some values may be hidden. Unless noted otherwise, only the newest values recorded on each date are displayed. Opioid Medications No data to display. Depression screening Depression Screening PHQ-2 Score PHQ-9 Score YOVANY-2 Total Score 06/22/2022 0 - - Depression screening tool completed and reviewed. Based on score and interview, patient is not at risk for depression. Screening tool discussed with patient, and I recommended no further intervention at this time. Cognitive screening Mini Cog Score: 5 Cognitive screening reviewed and no further action needed (score 3-5) Functional Observation Was the patient's Timed Up AND Go test unsteady or ? 12 seconds? No Advance Care Planning Patient did not wish or was not able to name a surrogate decision maker or provide an advance care plan Pt does not have Advanced Directives/Living Will Measurements BP 118/78 Pulse 72 Resp 18 Ht 5' 5 (1.65m) Wt 206 lb 6.4 oz (93.6kg) LMP 01/07/2011 BMI 34.35 kg/(m2). Additional screenings: Vision Screening Right eye - Without correction: With correction: 20/25 Left eye - Without correction: With correction: 20/25 Both eyes - Without correction: With correction: 20/25 Comments: Color normal Assessment/Plan Medicare annual wellness visit, initial (Z00.00) - Counseled on healthy diet and regular exercise - Fall avoidance information provided - Personalized prevention plan provided Follow up in 1 year Priyanka Smith MD 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 Patient presents with: Medicare Wellness Exam HPI Asia Hawley is a 63 year old female who presents here today for 6 month follow up, in addition to Medicare Wellness. Thyroid: Taking Synthroid 100 mcg daily. Doing well on this dosage. Hx of low sodium/potassium, monitored through routine labs. Elevated BUN and Creatinine on previous labs, continue monitoring. Glucose - Elevated glucose, currently on no medications. Does watch diet, does eat home cooked meals, no processed foods. Drinks a lot of water, no pop. Denies much exercise in her diet. Pulmonary - Follows with Dr. Temple. Hx of ILD/NSIP. On current regimen of Cellcept 500 mg bid, Reglan 5 mg and Prednisone 5 mg once daily. Does CT scan of lungs yearly for monitoring. Past medical history, appointments, medications, allergies reviewed. 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, 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 Unspecified hypothyroidism Previous Surgical History PAST SURGICAL HISTORY Procedure Laterality Date ARTHRP INTERPOS INTERCARPAL/METACARPAL JOINTS Right 10/13/2017 Right thumb CMC arthroplasty with LRTI CAUTERY CERVIX CRYOCAUTERY INITIAL/REPEAT 1999 CHOLECYSTECTOMY Cholecystectomy COLONOSCOPY FLX DX W/COLLJ SPEC WHEN PFRMD 04/10/2009 COLONOSCOPY FLX DX W/COLLJ SPEC WHEN PFRMD 09/05/2014 Repeat 2024 COLONOSCOPY FLX DX W/COLLJ SPEC WHEN PFRMD 12/22/2017 Colonoscopy COLPOSCOPY CERVIX UPPER/ADJACENT VAGINA Multiple starting 1995 Colposcopy LAPAROSCOPY COLECT (more content not included)... [facility] 03-01-2023 History of Present illness Narrative Patient presents for TDAP vaccine. Denies any problems at this time. Tolerated injection well. Clementina Zaldivar LPN documented in this encounter [facility] 02-25-2023 History of Present illness Narrative Female Pelvic Medicine & Reconstructive Surgery Post-Op Visit Asia Hawley is a 62 year old female who presents for a 4 Week post-op check s/p combined stage I and II sacral neuromodulation. Patient states Interstim worked great for 1 week. Then she thought she experienced urinary frequency and urgency so went [facility]. Urine culture on 02/09/2023 showed mixed microbiota. Treated with keflex x 7 days, states symptoms improved, but did not fully resolve. She has worked with Mary Lindsay to turned up program 6 to 1.8. # Voids during the day: q30 minutes. She drinks 1 cup of coffee, 2 8oz unsweetened iced tea, occasional pop. Drinks about 16 oz of water a day. # Voids at night: q1.5 hours # Pads per day: 3 liners # Leaks per day: 10-15, drops Urgency rating (scale of 1-10): 3, she can hold it longer Post-op complications: no Pain: no PAMELA-6 Do you: Feel you need to strain too hard to have a bowel movement? No (0) Feel you have not completely emptied your bowels at the end of a bowel movement? No (0) Usually lose stool beyond your control if your stool is well formed? Not answered Usually lose stool beyond your control if your stool is loose? No (0) Usually lose gas from the rectum beyond your control? No (0) Usually have pain when you pass your stool? No (0) Experience a strong sense of urgency and have to sue to the bathroom to have a bowel movement? No (0) Does part of your bowel ever pass through the rectum and bulge outside during or after a bowel movement? No (0) CRADI-8 Do you: Usually experience frequent urination? Yes, quite a bit bothersome (4) Usually experience urine leakage associated with a feeling of urgency, that is, a strong sensation of needing to go to the bathroom? Yes, quite a bit bothersome (4) Usually experience urine leakage related to coughing, sneezing or laughing? Yes, not at all bothersome (1) Usually experience small amounts of urine leakage (that is, drops)? Yes, somewhat bothersome (2) Usually experience difficulty emptying your bladder? Yes, not at all bothersome (1) Usually experience pain or discomfort in the lower abdomen or genital region? Yes, somewhat bothersome (2) Overall, how satisfied were you with your postoperative pain medication? Very satisfied With regard to your expectations before surgery, did you have the amount of pain you expected, more pain, or less pain? Much less pain than I expected Was the preoperative teaching you had about pain expectations helpful? Not sure Were the discharge instructions you received about pain medications helpful? Yes Utilities Operator offered:Patient declines OBJECTIVE: [facility] 01/07/2011 General: Well appearing, alert, in no acute distress, well-hydrated, well nourished. Low back: surgical site is well healed No impedence detected. Battery fully charged. Increased to 2.0. Reviewed with patient how to increase amplitude and how to change program. Program 6, increased to 2.0 ASSESMENT: Asia Hawley is a 62 year old female who is post-op; stable and doing well post-operative course uncomplicated PLAN: - Increased amplitude to 2.0, patient tolerate increase well, denied sensation of change after a few moments - Reviewed how to increase amplitude and change program with patient, advised her to give every change about 2 weeks before making additional changes - Urine culture sent, patient prefers to wait for culture for antibiotics Tariq Brooks APRN.SAMIR documented in this encounter [facility] 02-08-2023 Miscellaneous Notes Patient phones requesting refills as follows: Requested Prescriptions Pending Prescriptions Disp Refills predniSONE (DELTASONE) 5 mg tablet Sig: Take 1 tablet by mouth once daily. Please review and advise. Cara Juares LPN documented in this encounter [facility] 01-15-2023 History of Present illness Narrative Patient: Asia Hawley Date of Service: 01/15/2023 UNIVERSAL PROTOCOL / SAFETY CHECKLIST Procedure to be performed: Peripheral Nerve Evaluation (PNE) Indication: Overactive Bladder, Urinary Urgency, Urinary Frequmne Sign in Communication: Completed Time Out: Team Confirms the Correct Patient, Correct Procedure, Correct Site and Site Marking, Correct Position (if applicable), Prep and Dry Time (if applicable). Time: 8:25AM Affirmation of Time Out: YES Details of Procedure: The patient was placed in a flat prone position. Her lower back was prepped with antiseptics. She was draped in sterile fashion. Her coccyx was marked with a pen, 9cm cephalic to this point along the midline was marked with a pen. A line was drawn 2 cm bilaterally in horizontal fashion and points were marked 2 cm cephalic to these points. A safety time out was done and the correct patient and procedure were identified. Local anesthesia (1% lidocaine) was infiltrated bilaterally. The introducer needle was inserted at approximately 60 degree angle in the patients left side, entering the presumed S3 foramen. The S3 foraminal location was confirmed with positive patient sensation in the rectum and vagina. I then picked a point 4 cm to the patient's right side from the needle. I placed the InterStim needle at an approximately 60 degree angle in a similar fashion, entered the S3 foramen. The S3 foraminal location was confirmed. The temporary electrode and stylette were introduced through the introducer needle and the stylettes and introducer needle were then removed.. The electrodes were tested bilaterally and again similar responses were obtained bilaterally. The temporary electrodes were then taped securely to the skin with Tegaderm. The patient tolerated the procedure well. We will see how she does over the next week and plan for interstim stages 1/2 in the OR. John Mg MD documented in this encounter [facility] 01-12-2023 Instructions Macrina Amaya PA-C - 01/12/2023 10:58 AM EDT PATIENT PREOPERATIVE INSTRUCTIONS [facility]: [phone] -- [address] [address]. Please read below carefully for your personalized instructions. Dietary Restrictions: - No solid food after midnight. - You may have 12 ounces of clear liquids (water, clear juices such as apple juice or gatorade, carbonated beverages, clear tea, black coffee, jello) until 2 hours before scheduled arrival at facility. Medications: Unless instructed differently below, stay on all of your medications until your surgery. Approved medications to take the morning of surgery with a sip of water: levothyroxine, mycophenolate mofetil, prednisone. If you start any new medications after today's visit, please contact the surgeon's office. Blood Thinning Medications: - Stop NSAIDS (Ibuprofen, Advil, Aleve, Motrin, Celebrex, Mobic, etc.) 7 days before surgery, as directed by your surgeon. - Stop Aspirin 7 days before surgery, as directed by your surgeon. - Stop Vitamin E, ALL multi-vitamins, herbals and dietary supplements 14 days before surgery. - You may take Tylenol (Acetaminophen) or any of your pain medications that do not contain aspirin or NSAIDS as needed. Important Reminders: - Candy, mints, and tobacco products are NOT permitted the morning of surgery. - Hearing aids, dentures and glasses may be worn the morning of surgery. - NO jewelry, body piercings, makeup, hairpins or contacts are to be worn the day of surgery. If you develop symptoms such as a fever, cold, or flu, or have other changes to your health within TWO DAYS of scheduled surgery or the morning of surgery, please contact the surgery center above. Personal Belongings: -Please have photo ID and insurance cards. -If you do not have a copy of advance directives on file with us, please bring a copy with you on the day of surgery. - Leave ALL valuables and money at home or with family members. For Outpatient Procedures: - YOU MUST HAVE A RESPONSIBLE CAR VARNISHER TAKE YOU HOME. A FRAUD REPRESENTATIVE OR CENTER MEDICAL DIRECTOR CANNOT BE MADE A RESPONSIBLE CAR VARNISHER. - We recommend that a responsible person stays with you overnight to take care of you. - You cannot stay in a hotel alone after outpatient surgery. You will not be permitted to have your surgery, if you do not have someone to take care of you. Arrival Time for Surgery: - The Surgery Center or hospital where you are having surgery will call the afternoon before surgery (or Wednesday for Wednesday surgery) with a scheduled arrival time. - If you have not heard by 4 pm, please contact the surgery center above. Please be aware that emergency situations arise, which may delay or change your surgical time. If this happens, we will notify you as soon as possible and regret any inconvenience. If you already have an Advance Directive, please fax a copy to [phone] or email to for it to be added to your chart. If you do not have an Advance Directive, you can find the appropriate form and more information at [email or web address]. We recommend that you complete the Advance Directive form found on the website and bring it with you the day of your surgery. It can be witnessed and scanned into your chart that day. documented in this encounter [facility] 01-12-2023 History and physical note Images from the original note were not included. HISTORY AND PHYSICAL EXAMINATION SERVICE DATE: 01/12/2023 SERVICE TIME: 10:38 AM PRIMARY CARE PHYSICIAN: Priyanka Smith MD REASON FOR VISIT: Asia Hawley is a 62 year old female who is scheduled for Procedure(s): INSERTION STIMULATOR GENERATOR BLADDER (Bilateral) IMPLANT STIMULATOR LEAD(S) BLADDER INCISIONAL APPROACH (Bilateral) FLUOROSCOPIC GUIDANCE/LOCALIZATION OF NEEDLE/CATHETER TIP FOR DIAG OR THERAPUETIC SPINE/PARASPINOUS INJECTION PROCEDURES (Bilateral) at the request of John Burris MD for consultation. My final recommendation will be communicated back to the requesting physician by way of shared medical record or letter. 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) Post-Menopausal Bleeding Cervical Stenosis (Uterine Cervix) Endometrial Polyp Dizziness Weight Loss, Non-Intentional Thymoma, Malignant (Hcc) Lung Nodules Ild (Interstitial Lung Disease) (Hcc) Discharge Planning Issues Pain, Postoperative, Acute Esophageal Dysmotility Nsip (Nonspecific Interstitial Pneumonitis) (Hcc) Current Chronic Use of Systemic Steroids High Risk Medication Use Stage 3a Chronic Kidney Disease (Hcc) COVID-19 Immunization Status Overdue - COVID-19 VACCINE (5 - Aristides risk series) Overdue since 05/01/2022 03/06/2022 Imm Admin: COVID-19 vaccine, age 12+ yr, bivalent (PFIZER-BIONTECH) 12/22/2021 Imm Admin: COVID-19 original vaccine, age 12+ yr, monovalent (PFIZER-BIONTECH - TALBOT TOP) 04/07/2021 Imm Admin: COVID-19 original vaccine, age 12+ yr, monovalent (PFIZER-BIONTECH - PURPLE TOP) Only the first 3 history entries have been loaded, but more history exists. CHIEF COMPLAINT: urinary frequency HPI: Asia Hawley is a 62 year old female presenting for pre-anesthesia consultation with her . Pt has history of OAB and urinary frequency since 2019. She has tried and failed tx with multiple medications. Denies dysuria or gross hematuria currently. Above procedure recommended to manage symptoms. Procedure scheduled on 01/28/2023 at [facility]. REVIEW OF SYSTEMS: General: No weight loss, malaise or fevers. Neurological: No history of TIA's, stroke, ELECTRIC MELT OPERATOR tumor, impaired sensorium, hemiplegia, paraplegia or quadraplegia. No neurological symptoms or problems. Respiratory: +ILD/NSIP - s/p R VATS biopsy of upper, middle and lower lung for pulmonary infiltrates 03/2020, on Cellcept and prednisone 5 mg, follows with Dr. Temple, [facility] 10/30/22, normal PFT 11/2022 Negative for: current cough, tobacco use, URI < 2 weeks and obstructive sleep apnea. Cardiovascular: Positive for: DVT/PE (remote h/o RLE DVT - post-op after back surgery 2008) Negative for: arrhythmia, atrial fibrillation, CHF, hyperlipidemia, hypertension, recent HI and murmur/valvular heart disease. GI: +Esophageal dysmotility - on Reglan Negative for: GERD, heartburn, hepatitis, irritable bowel syndrome, inflammatory bowel disease, liver disease and ETOH >2 drinks/day. : See HPI. Positive for: renal failure. Patient's renal failure is chronic. Negative for: dysuria, hematuria and urinary tract infection. Endocrine: Positive for: hypothyroidism and steroid for chronic problem (prednisone 5 mg daily). Negative for: diabetes mellitus. Hematology: No history of bleeding or clotting disorder. Patient is not taking anti-coagulation or platelet medications. No history of hematological symptoms or problems. Oncology: +H/o thymoma - s/p excision 06/2018 Psych: No history of psychiatric symptoms or problems. Musculoskeletal: Negative for joint pain or swelling, back pain or muscle pain. Skin: Negative for lesions, rash and itching. 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, 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 Unspecified hypothyroidism PAST SURGICAL HISTORY Procedure Laterality Date ARTHRP INTERPOS INTERCARPAL/METACARPAL JOINTS Right 10/13/2017 Right thumb CMC arthroplasty with LRTI CAUTERY CERVIX CRYOCAUTERY INITIAL/REPEAT 1999 CHOLECYSTECTOMY Cholecystectomy COLONOSCOPY FLX DX W/COLLJ SPEC WHEN PFRMD 04/10/2009 COLONOSCOPY FLX DX W/COLLJ SPEC WHEN PFRMD 09/05/2014 Repeat 2024 COLONOSCOPY FLX DX W/COLLJ SPEC WHEN PFRMD 12/22/2017 Colonoscopy COLPOSCOPY CERVIX UPPER/ADJACENT VAGINA Multiple starting 1995 Colposcopy LAPAROSCOPY COLECTOMY PARTIAL W/ANASTOMOSIS 12/07/2009 diverticulitis LIG/TRNSXJ FLP TUBE ABDL/VAG APPR UNI/BI Tubal ligation LX PARTIAL COLECTOMY 12/23/2017 [facility] lap lysis of adhesions, left oopherectomy, right salpinoopherectomy, left salpingectomy, redo lap sigmoid colectomy w/ressection, lap mobilization of splenic flexure, lap appendectomy PAST SURGICAL HISTORY OF 10/2008 T9-L1 fusion, Dr. Lemon PAST SURGICAL HISTORY OF 10/24/2009 Removed T9-L1, 2 rods and 8 screws, Dr Lemon PAST SURGICAL HISTORY OF 11/2018 Hysteroscopy with D&C and Polypectomy with [employer]s [employer] Nephew Truclear device PICC LINE INSERT/CONSULT 07/11/2018 THYMECTOMY PRTL/TOT TRANSCERVICAL APPR SPX 07/14/2018 WEDGE RESECT LUNG Right 03/25/2020 Right VATS wedge resection of upper, middle and lower lung for pulmonary infiltrates FAMILY HISTORY Problem Relation Age of Onset Hypertension Mother Thyroid Mother Heart Father Hypertension Father COPD Father Smoker. Heart Maternal Grandmother Stroke Maternal Grandmother Cancer Maternal Grandmother COLON Cancer Paternal Grandmother STOMACH Anesthesia Problems No Family History Social History Tobacco Use Smoking status: Never Smokeless tobacco: Never Tobacco comments: No one in household smokes. Smoker in childhood home. Vaping Use Vaping Use: Never used Substance Use Topics Alcohol use: Yes Comment: Rarely Drug use: No Prior to Admission medications as of 01/12/23 1043 Medication Sig Last Dose Taking aspirin, enteric coated (ASPIRIN, ENTERIC COATED) 81 mg EC tablet Take 81 mg by mouth once daily. Taking Yes multivit-min/iron/folic acid/K (MULTI-DAY PLUS MINERALS ORAL) Take 1 capsule by mouth once daily. Taking Yes L.acidophilus-L.rhamnosus (PROBIOTIC) 15 billion cell capsule Take 1 capsule by mouth once daily. Taking Yes predniSONE (DELTASONE) 5 mg tablet Take 1 tablet by mouth once daily. Taking Yes metoclopramide HCl (REGLAN) 5 mg tablet Take 1 tablet by mouth three times daily. Taking Yes estradiol (ESTRACE) 0.01 % (0.1 mg/gram) vaginal cream Use 1 g vaginally two times a week. Taking Yes calcium carbonate 600 mg-cholecalciferol 400 units 600 mg-10 mcg (400 unit) tab Take 1 tablet by mouth twice daily. Taking Yes levothyroxine (SYNTHROID) 100 mcg tablet Take 1 tablet by mouth once daily. Take on empty stomach Taking Yes mycophenolate Mofetil (CELLCEPT) 500 mg tablet Take 2 in am and one in pm Taking Yes Medication Comments documented by Tess Persaud Ma on 12/22/2022 at 0900. OTC Prevagen. Daily Probiotic. ALLERGIES Allergen Reactions Environmental [Othe* ? what=congestion Erythromycin Diarrhea Hay Fever [Seasonal* Zyrtec [Cetirizine * Itching Objective PHYSICAL EXAM: General: alert and oriented and obese. Pertinent negatives noted - not distressed. Skin: Pertinent negatives noted - no cyanosis and no ulcers. Vitiligo on BUE and face. HEENT: EOM intact and pupils equal round. Pertinent negatives noted - no carotid bruit. Cardiovascular: regular rate and rhythm, normal S1 and S2, no rub, murmurs, or gallop. Pulse characterized as regular.No radial pulse abnormalities. Respiratory: normal breath sounds, no wheezes or crackles. Abdomen: Pertinent negatives noted - not distended. Extremities: no deformity, no edema or tenderness, no joint swelling or clubbing. Neurological: normal cognition and motor skills. Gait normal. No weakness or sensory deficit. PAIN ASSESSMENT: VITALS: BP 129/77 Pulse 79 Temp 98.4 Resp 18 Ht 5' 3.5 (1.61m) Wt 200 lb (90.7kg) SpO2 97% LMP 01/07/2011 BMI 34.87 kg/(m^2). Diagnostic tests reviewed for today's visit: Lab Value Units Date High Low HB 13.3 g/dL 11/02/2022 15.5 11.5 HCT 41.4 % 11/02/2022 46.0 36.0 WBC 10.21 k/uL 11/02/2022 11.00 3.70 PLT 277 k/uL 11/02/2022 400 150 NA 138 mmol/L 11/02/2022 144 136 K 3.8 mmol/L 11/02/2022 5.1 3.7 GLUC 109 mg/dL 11/02/2022 99 74 BUN 24 mg/dL 11/02/2022 21 7 CREAT 1.13 mg/dL 11/02/2022 0.96 0.58 PTSEC No results within date range. INR No results within date range. APTT No results within date range. ALT 16 U/L 11/02/2022 38 7 AST 20 U/L 11/02/2022 35 13 TBILI 0.3 mg/dL 11/02/2022 1.3 0.2 TSH 0.722 mIU/L 12/17/2022 4.200 0.270 Lab Value Units Date High Low HCGQT No results within date range. UHCG No results within date range. HCG, BODY* No results within date range. Lab Value Units Date High Low ABORHD No results within date range. ABSCREEN No results within date range. Hemoglobin A1C (%) Date Value 12/16/2018 5.3 PFT 11/16/2022 IMPRESSION: Spirometry is normal. The TLC, RV and RV/TLC are normal. The diffusing capacity is normal. Electronically Signed On 11-16-2022 12:36:36 EDT by Rowan Temple M.D. ECG 03/22/2020 Diagnosis: NORMAL SINUS RHYTHM NORMAL ECG Confirmed by MD ZAHEER, PhD, ROBB ([id number]) on 03/26/2020 2:22:16 PM CUS 01/02/2019 IMPRESSION RIGHT SIDE Internal carotid artery: 0-19% stenosis. Vertebral artery: Patent and antegrade flow noted. LEFT SIDE Internal carotid artery: 0-19% stenosis. Tortuous vessel at distal . Vertebral artery: Patent and antegrade flow noted. Echo 07/11/2018 CONCLUSIONS: - Exam indication: Hypotention; Mediastinal mass - The left ventricle is normal in size. There is no left ventricular hypertrophy. Left ventricular systolic function is normal. EF = 60 5% (visual est.) - The right ventricle is normal in size. Right ventricular systolic function is normal. - There are no significant valvular abnormalities. - The patient has not had a prior CC echocardiographic exam for comparison. Assessment Patient has the following medical conditions which may affect ede-operative course: NSIP (nonspecific interstitial pneumonitis) (HCC) Assessment: Stable, on Cellcept and prednisone 5 mg, follows with Dr. Temple, LVO 10/30/22, normal PFT 11/2022. S/p R VATS biopsy of upper, middle, and lower lung for pulmonary infiltrates 03/2020. Lungs CTAB, SpO2 97% on RA. Esophageal dysmotility Assessment: Stable, managed on Reglan. Acquired hypothyroidism Assessment: Stable, on levothyroxine, managed by PCP. 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 Current chronic use of systemic steroids Assessment: On prednisone 5 mg daily. Stage 3a chronic kidney disease (HCC) Assessment: BMP Latest Ref Rng & Units 11/02/2022 05/23/2022 04/22/2022 GLUCOSE 74 - 99 mg/dL 109(H) 84 86 BUN 7 - 21 mg/dL 24(H) 25(H) 29(H) CREATININE 0.58 - 0.96 mg/dL 1.13(H) 1.05(H) 0.92 SODIUM 136 - 144 mmol/L 138 142 139 POTASSIUM 3.7 - 5.1 mmol/L 3.8 4.0 4.8 CHLORIDE 97 - 105 mmol/L 104 107(H) 104 CO2 22 - 30 mmol/L 27 27 24 ANION GAP 9 - 18 mmol/L 7(L) 8(L) 11 CALCIUM, TOTAL 8.5 - 10.2 mg/dL 9.8 9.7 10.1 eGFR >=60 mL/min/1.73m 54(L) 59(L) 70 EGFR- - - - - EGFR-ALL OTHER RACES . - - - [place] Activity Status Index: METS: Climb a flight of stairs or walk up a hill (5.50 METs) DASI Score: 5.5 Patient denies any chest pain or undue shortness of breath with the above physical activity. Clinical Frailty Scale: 3. Well, with treated comorbid disease STOP-Bang Score: Patient over 50 years old Has a large neck Denies snoring loudly Denies feeling tired, fatigued, or sleepy during the daytime Has not been observed to stop breathing or choking/gasping during sleep Denies having high blood pressure BMI less than or equal to 35 kg/m^2 Non-male patient STOP-Bang Score: 2 ANESTHESIA FINDINGS: Intubation History: No history of difficult intubation. No abnormal airway history Significant Anesthesia Considerations: none Airway History: No history of difficult airway No abnormal airway history I - PHYSICAL EVALUATION AIRWAY Patient intubated: No. Tracheostomy tube not present Mallampati: II. TM distance: >3 FB. Neck ROM: full ROM without neurological symptoms. Mouth opening: adequate. Short neck: no. Thick neck: yes Lip Bite Test: I Microretrognathia/Micronagthia/Rec essed Chin: No DENTAL Dental findings: teeth intact and broken tooth. II - ANESTHESIA PLAN Anesthetic Plan: other Anesthetic plan additional comments: *PACC/TCI - anesthesia choice. Beta Ana Monitoring Plan Post Procedure Analgesic Plan Prepared for Surgery: optimally prepared for surgery. CONSULTS: Patient does not require consults for optimization at this time Planned Anesthetic: other anesthesia choice The Following Tests/Procedures Have Been Initiated: Orders Placed This Encounter aspirin, enteric coated (ASPIRIN, ENTERIC COATED) 81 mg EC tablet Sig: Take 81 mg by mouth once daily. multivit-min/iron/folic acid/K (MULTI-DAY PLUS MINERALS ORAL) Sig: Take 1 capsule by mouth once daily. L.acidophilus-L.rhamnosus (PROBIOTIC) 15 billion cell capsule Sig: Take 1 capsule by mouth once daily. Instructions Given to Patient: Instructions located in the after visit summary. Patient given verbal and written preop instructions and voices comprehension and compliance. SIGNATURE: Macrina Amaya PA-C PATIENT NAME: Asia Hawley DATE: January 12, 2023 TIME: 10:38 AM PAGER/CONTACT #: documented in this encounter [facility] 12-22-2022 History of Present illness Narrative 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 Patient presents with: F/U 6 Month HPI Asia Hawley is a 62 year old female who presents here today for a 6 month follow up. Pt here today for a 6 month follow up. 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 GI/Uro - Denies any stomach or bowel issues. Follows with Urology, Dr. Yang and Uro/[facility], Dr. Mg. Hx of acute cystitis, gross hematuria and OAB. Uses Vaginal Estrace cream twice a week and has surgery scheduled on 01/28/23 for stimulator generator bladder. Completed botox injections but these did not help symptoms. Has to urinate frequently, reports nocturia, doesn't sleep well and is tired during the day. Hoping this surgery help alleviate symptoms. GERD - Stable. Previously followed with GI in [place], Dr. Franklin. No longer on PPI. Hx of brad esophagitis, odynophagia and esophageal dysmotility. Has used Nystatin rinse in the past but it was suggested to use the 14 day course of oral Diflucan 100 mg once daily vs the Nystatin rinse. Denies any present issues of thrush. Was told that the thrush may have been related to Prednisone use. Would like to be able to call in and request refill if starting to have issues. Thyroid - Stable on current regimen of Synthroid 100 mcg once daily, denies any missed dosages. Electrolytes - Hx of low sodium/potassium, monitored through routine labs. Pulm - Follows with Dr. Temple. Hx of ILD/NSIP. On current regimen of Cellcept 500 mg bid, Reglan 5 mg and Prednisone 5 mg once daily. HM - Declines HIV screening. Past medical history, appointments, medications, allergies reviewed. 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 GERD (gastroesophageal reflux disease) 10/01/2017 Hives Intramural leiomyoma of uterus Malnutrition of moderate degree (HCC) 06/15/2018 Obesity, Class I, BMI 30-34.9 E66.9 09/03/2017 Osteopenia Overactive bladder Primary osteoarthritis of first carpometacarpal joint of right hand 08/05/2017 Added automatically from request for surgery [id number] Rectal bleed 09/05/2014 Thymoma Resected 07/14/17, 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 Unspecified hypothyroidism Previous Surgical History PAST SURGICAL HISTORY Procedure Laterality Date ARTHRP INTERPOS INTERCARPAL/METACARPAL JOINTS Right 10/13/2017 Right thumb CMC arthroplasty with LRTI CAUTERY CERVIX CRYOCAUTERY INITIAL/REPEAT 1999 CHOLECYSTECTOMY Cholecystectomy COLONOSCOPY FLX DX W/COLLJ SPEC WHEN PFRMD 04/10/09 COLONOSCOPY FLX DX W/COLLJ SPEC WHEN PFRMD 09/05/14 Repeat 2024 COLONOSCOPY FLX DX W/COLLJ SPEC WHEN PFRMD 12/22/2017 Colonoscopy COLPOSCOPY CERVIX UPPER/ADJACENT VAGINA Multiple starting 1995 Colposcopy LAPAROSCOPY COLECTOMY PARTIAL W/ANASTOMOSIS 12/07/2009 diverticulitis LIG/TRNSXJ FLP TUBE ABDL/VAG APPR UNI/BI Tubal ligation LX PARTIAL COLECTOMY 12/23/2017 [facility] lap lysis of adhesions, left oopherectomy, right salpinoopherectomy, left salpingectomy, redo lap sigmoid colectomy w/ressection, lap mobilization of splenic flexure, lap appendectomy PAST SURGICAL HISTORY OF 10/2008 T9-L1 fusion, Dr. Lemon PAST SURGICAL HISTORY OF 10/24/2009 Removed T9-L1, 2 rods and 8 screws, Dr Lemon PAST SURGICAL HISTORY OF 11/2018 Hysteroscopy with D&C and Polypectomy with [employer] Truclear device PICC LINE INSERT/CONSULT 07/11/2018 THYMECTOMY PRTL/TOT TRANSCERVICAL APPR SPX 07/14/2017 WEDGE RESECT LUNG Right 03/25/2020 Right VATS wedge resection of upper, middle and lower lung for pulmonary infiltrates Family History FAMILY HISTORY Problem Relation Age of Onset Hypertension Mother Thyroid Mother Heart Father Hypertension Father COPD Father Smoker. Heart Maternal Grandmother Stroke Maternal Grandmother Cancer Maternal Grandmother COLON Cancer Paternal Grandmother STOMACH Patient Allergies ALLERGIES Allergen Reactions Environmental [Othe* ? what=congestion Erythromycin Diarrhea Hay Fever [Seasonal* Zyrtec [Cetirizine * Itching Current Medications Current Outpatient Medications on File Prior to Visit Medication Sig metoclopramide HCl (REGLAN) 5 mg tablet Take 1 tablet by mouth three times daily. estradiol (ESTRACE) 0.01 % (0.1 mg/gram) vaginal cream Use 1 g vaginally two times a week. predniSONE (DELTASONE) 10 mg tablet Take 1 tablet by mouth once daily. calcium carbonate 600 mg-cholecalciferol 400 units 600 mg-10 mcg (400 unit) tab Take 1 tablet by mouth twice daily. nystatin (MYCOSTATIN) 100,000 unit/mL suspension Take 5 mL by mouth four times daily. Swish and swallow (5 mL) 4 times per day. levothyroxine (SYNTHROID) 100 mcg tablet Take 1 tablet by mouth once daily. Take on empty stomach mycophenolate Mofetil (CELLCEPT) 500 mg tablet Take 2 in am and one in pm aspirin 81 mg chewable tablet Take 1 tablet by mouth once daily. acetaminophen (TYLENOL) 325 mg cap Take by mouth as needed. multivitamins(DAILY MULTIVITAMIN TAB) Take one(1) tablet daily. No current facility-administered medications on file prior to visit. Social History Social History Tobacco Use Smoking status: Never Smokeless tobacco: Never Tobacco comments: No one in household smokes. Smoker in childhood home. Vaping Use Vaping Use: Never used Substance Use Topics Alcohol use: Yes Comment: Rarely Drug use: No EXAM: BP 118/80 (BP Site: Left Arm, BP Position: Sitting, BP Cuff Size: Large Adult) Pulse 80 Resp 16 Wt 91.6 kg (202 lb) LMP 01/07/2011 BMI (P) 35.22 kg/m General Appearance: Well appearing, alert, in no acute distress, well-hydrated, well nourished. and Obese. Neck: Supple, no adenopathy; thyroid symmetric, normal size, no bruits. Lungs: Lungs clear to auscultation. No wheezing, rhonchi, rales.. Heart: RRR without murmur, gallop, or rubs. No ectopy. Health Maintenance List DTAP,TDAP,TD(3 - Td or Tdap) due on 04/29/2020 HIV SCREENING due on 12/19/2022 INFLUENZA(1) due on 01/15/2023 MAMMOGRAM due on 07/24/2023 ANNUAL PCP TEAM CHRONIC DISEASE VISIT due on 08/21/2023 PAP TESTING due on 08/24/2023 HPV TESTING due on 08/24/2023 LIPID SCREEN due on 08/28/2024 DIABETES SCREEN due on 11/02/2025 COLORECTAL CANCER SCREENING due on 12/23/2027 DEPRESSION ASSESSMENT Completed HEPATITIS C SCREENING Completed SHINGRIX VACCINE Completed COVID-19 VACCINE Completed PNEUMOCOCCAL Completed HPV VACCINE Aged Out Data reviewed Procedure on 11/16/2022 Component Date Value FVC PRE (L) 11/16/2022 3.10 FEV1 PRE (L) 11/16/2022 2.67 FEV1/FVC PRE (%) 11/16/2022 86 IAB10-59% PRE (L/S) 11/16/2022 3.85 PEF PRE (L/S) 11/16/2022 6.31 VC (L) BOX 11/16/2022 3.13 IC BOX (L) 11/16/2022 2.66 ERV BOX (L) 11/16/2022 0.42 DLCO (ml/min/mmHg) 11/16/2022 17.31 FRC Box (L) 11/16/2022 2.34 RV Box (L) 11/16/2022 1.79 TLC Box (L) 11/16/2022 4.87 RV/TLC Box (%) 11/16/2022 37 VA (L) 11/16/2022 4.33 DLCO/VA (ml/min/mmHg/L) 11/16/2022 3.99 Appointment on 11/02/2022 Component Date Value WBC 11/02/2022 10.21 RBC 11/02/2022 4.83 Hemoglobin 11/02/2022 13.3 Hematocrit 11/02/2022 41.4 MCV 11/02/2022 85.7 MCH 11/02/2022 27.5 MCHC 11/02/2022 32.1 RDW-CV 11/02/2022 14.3 Platelet Count 11/02/2022 277 MPV 11/02/2022 10.0 Neutrophils % 11/02/2022 63.9 Abs Neut 11/02/2022 6.53 Lymphocytes % 11/02/2022 24.2 Abs Lymph 11/02/2022 2.47 Monocytes % 11/02/2022 10.6 Abs [place] 11/02/2022 1.08 (H) Eosinophils % 11/02/2022 0.2 Abs Eosin 11/02/2022 <0.03 Basophils % 11/02/2022 0.2 Abs Baso 11/02/2022 <0.03 Immature Granulocytes % 11/02/2022 0.9 Abs Immature Gran 11/02/2022 0.09 NRBC 11/02/2022 0.0 Absolute nRBC 11/02/2022 <0.01 Diff Type 11/02/2022 Auto Protein, Total 11/02/2022 7.0 Albumin 11/02/2022 4.1 Calcium, Total 11/02/2022 9.8 Bilirubin, Total 11/02/2022 0.3 Alkaline Phosphatase 11/02/2022 80 AST 11/02/2022 20 ALT 11/02/2022 16 Glucose 11/02/2022 109 (H) BUN 11/02/2022 24 (H) Creatinine 11/02/2022 1.13 (H) Sodium 11/02/2022 138 Potassium 11/02/2022 3.8 Chloride 11/02/2022 104 CO2 11/02/2022 27 Anion Gap 11/02/2022 7 (L) Estimated Glomerular Rm* 11/02/2022 54 (L) ASSESSMENT/PLAN: 1. Hypothyroidism, unspecified type - ICD9: 244.9, ICD10: E03.9 (primary diagnosis) - Instructed patient on importance of taking on an empty stomach either first thing in the morning or at bedtime. - check TSH in 6 months Weight increasing related to chronic Prednisone use - Continue current medication regimen. 2. Brad esophagitis (HCC) - ICD9: 112.84, ICD10: B37.81 - Stable presently - Ok to call in if having issues to Rx oral Diflucan 3. Epigastric pain - ICD9: 789.06, ICD10: R10.13 - Stable without PPI 4. Esophageal dysmotility - ICD9: 530.5, ICD10: K22.4 - Stable 5. ILD (interstitial lung disease) (HCC) - ICD9: 515, ICD10: J84.9 - Cont f/u with Pulmonary 6. OAB (overactive bladder) - ICD9: 596.51, ICD10: N32.81 - Cont f/u with DENTAL MOLD [facility]ER 7. Low sodium levels - ICD9: 276.1, ICD10: E87.1 - Stable monitor labs 8. 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 I agree with the 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, ROS, and Past Histories independently gathered by the clinical it support consultant and the remaining scribed note accurately describes my personal service to the patient. Medical Decision Making: Problems: Moderate: 2+ stable chronic illnesses Data: Unique test result(s) reviewed: 1 Unique test(s) ordered: 1 Risk: Moderate: Drug management Medical Decision Making Level: 4 - Moderate Priyanka Smith MD The documentation for this note was completed by Tess Persaud Ma acting as scribe for Priyanka Smith MD. December 22, 2022 9:17 AM. Tess Persaud Ma documented in this encounter [facility] 11-26-2022 Miscellaneous Notes Pt notified of results via [employer]. Susana Bhardwaj Ma Can you please call the patient and let her know that I sent in a prescription for fluconazole 100 mg daily for the next 2 weeks. If she is still having symptoms then I would recommend a follow-up in office. Please let me know if she has any questions. Thank you. The following approved medication requests have been transmitted electronically. Requested Prescriptions Signed Prescriptions Disp Refills fluconazole (DIFLUCAN) 100 mg tablet 14 tablet 0 Sig: Take 1 tablet by mouth once daily for 14 days. Authorizing Provider: JACQUELINE CARPENTER APRN.CNP Patient phones requesting refills as follows: Patient comment: Dr Temple said there was a pill I could take once daily. She wondered if I could try that versus the liquid 4x daily Requested Prescriptions Pending Prescriptions Disp Refills nystatin (MYCOSTATIN) 100,000 unit/mL suspension 600 mL 2 Sig: Take 5 mL by mouth four times daily. Swish and swallow (5 mL) 4 times per day. Please review and advise. Mariam Woods LPN documented in this encounter [facility] 11-16-2022 History of Present illness Narrative PULM FUNCTION SMARTBLOCK: Provider: Rowan Temple MD Assisting Tech: DM Zuñiga Spirometry: 1 DLCO: 1 LV - Box: 1 documented in this encounter [facility] 11-06-2022 History of Present illness Narrative Order placed for Intersim generator and lead placement in the [facility] on January 28. documented in this encounter [facility] 11-03-2022 History of Present illness Narrative ESTABLISHED PATIENT OFFICE VISIT HPI Asia Hawley is a 62 year old female who presents refer for frequency/urgency. On no current meds. Has to void q 2 hours day and night. Ho colon resection. Has severe constipation. Has bm 1x/week. Seeing her general surgeon soon. Supposed to be taking fiber, however has not been. On probiotic however. Does not get uti's per patient. Drinks minimal caffeine. Has long ho microhematuria. No imaging ever done 05/23/19 - better with oxy 10 er. Has not really addressed constipation 05/21/20 - stable on oxy 10 er. Constipation better. Ua+ 05/20/20 - oxybutynin no longer helping. Stopped. Would like to try another medicine for now. Would consider PFT in the spring. 08/11/22 - now seeing dr. Mg for botox injection to be done soon. She noticed blood in the urine. Ct scan showed r upj obstruction and L lower pole 9mm renal calc. No fever. No uti. No flank pain. 11/03/22 - renal lasix scan discussed. No signs of obstruction. Kub did not show L lower pole 8mm calc. Options discussed including laser litho vs. Surveillance. LAB: Creatinine Date Value Ref Range Status 11/02/2022 1.13 (H) 0.58 - 0.96 mg/dL Final No results found for: PSA Glucose, Urine Date Value 05/22/2022 Negative 03/22/2020 Negative mg/dL Bilirubin, Urine (no units) Date Value 05/22/2022 Negative 03/22/2020 Negative Ketones, Urine (no units) Date Value 05/22/2022 Negative 03/22/2020 Negative Specific [place], Ur (no units) Date Value 05/22/2022 1.010 03/22/2020 1.021 Hemoglobin/Blood,Ur Date Value 05/22/2022 3+ 03/22/2020 2+ pH, Urine (no units) Date Value 05/22/2022 7.0 03/22/2020 6.0 Protein, Urine (no units) Date Value 05/22/2022 1+ 03/22/2020 2+ Urobilinogen, Urine (EU) Date Value 04/13/2011 normal Nitrites (no units) Date Value 05/22/2022 Negative 03/22/2020 Negative Leukocytes (no units) Date Value 04/13/2011 large WBC, Urine Date Value 05/22/2022 6-10 /HPF 03/22/2020 0-5 /HPF Color/Appearance (comment:) Date Value 04/13/2011 tea/cloudy MEDICATIONS: estradiol (ESTRACE) 0.01 % (0.1 mg/gram) vaginal cream Use 1 g vaginally two times a week. predniSONE (DELTASONE) 10 mg tablet Take 1 tablet by mouth once daily. calcium carbonate 600 mg-cholecalciferol 400 units 600 mg-10 mcg (400 unit) tab Take 1 tablet by mouth twice daily. nystatin (MYCOSTATIN) 100,000 unit/mL suspension Take 5 mL by mouth four times daily. Swish and swallow (5 mL) 4 times per day. levothyroxine (SYNTHROID) 100 mcg tablet Take 1 tablet by mouth once daily. Take on empty stomach mycophenolate Mofetil (CELLCEPT) 500 mg tablet Take 2 in am and one in pm metoclopramide HCl (REGLAN) 5 mg tablet Take 1 tablet by mouth three times daily. aspirin 81 mg chewable tablet Take 1 tablet by mouth once daily. acetaminophen (TYLENOL) 325 mg cap Take by mouth as needed. multivitamins(DAILY MULTIVITAMIN TAB) Take one(1) tablet daily. REVIEW OF SYSTEMS Review of Systems Constitutional: Negative. Respiratory: Negative. Cardiovascular: Negative. Gastrointestinal: Negative. Genitourinary: Negative. Skin: Negative. Neurological: Negative. Psychiatric/Behavioral: Negative. 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 GERD (gastroesophageal reflux disease) 10/01/2017 Hives Intramural leiomyoma of uterus Malnutrition of moderate degree (HCC) 06/15/2018 Obesity, Class I, BMI 30-34.9 E66.9 09/03/2017 Osteopenia Overactive bladder Primary osteoarthritis of first carpometacarpal joint of right hand 08/05/2017 Added automatically from request for surgery [id number] Rectal bleed 09/05/2014 Thymoma Resected 07/14/17, 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 Unspecified hypothyroidism FAMILY HISTORY Problem Relation Age of Onset Hypertension Mother Thyroid Mother Heart Father Hypertension Father COPD Father Smoker. Heart Maternal Grandmother Stroke Maternal Grandmother Cancer Maternal Grandmother COLON Cancer Paternal Grandmother STOMACH SOCIAL HISTORY Social History Tobacco Use Smoking status: Never Smokeless tobacco: Never Tobacco comments: No one in household smokes. Smoker in childhood home. Vaping Use Vaping Use: Never used Substance Use Topics Alcohol use: Yes Comment: Rarely Drug use: No PHYSICAL EXAMINATION General appearance: Well appearing, alert, in no acute distress, and well-hydrated, well nourished Skin: Skin color, texture, turgor normal, no suspicious rashes or lesions Respiratory:+ effort Cardiovascular: Not examined GI: Normal abdominal exam, Abdomen soft, non-tender. No masses, organomegaly Musculoskeletal: Negative Neuro: Negative Genitourinary: not examined Impression: (N20.0) Kidney stone (primary encounter diagnosis) Plan: 1 year Kub prior Mathew Yang Jr, MD 11/03/2022 documented in this encounter [facility] 10-27-2022 History of Present illness Narrative Radiology Service Progress Note PATIENT NAME: Asia Hawley DATE OF SERVICE: October 27, 2022 TIME: 4:15 PM PATIENT IDENTITY VERIFICATION COMPLETED USING TWO (2) IDENTIFIERS: Name and Date of confirmed by patient verbally. FALL SCREENING: Has the patient had 2 falls in the last year or 1 fall with injury or currently using an Ambulatory Assistive Device (Walker, Cane, Wheelchair, Crutches, etc.)? No PATIENT GENDER DATA: Female. status: : No status: NO. PATIENT RELEVANT IMPLANT DATA REVIEWED: Yes RADIOLOGY DEPARTMENT: CT; Exam(s) Completed: Chest PERIPHERAL IV DATA: Not applicable SIGNED BY: RT Jonathon(R) October 27, 2022 4:15 PM documented in this encounter [facility] 10-15-2022 Miscellaneous Notes Images from the original note were not included. Lm to call back and schedule. Gerri Yang Jr., MD [facility] Clerical Pool Needs appt to discuss test results documented in this encounter [facility] 10-15-2022 Note HNO ID: [id number] Author: CELIA Vee Service: Radiology Author Type: Technologist Type: Progress Notes Filed: 10/15/2022 11:10 AM Note Text: RADIOLOGY SERVICE PROGRESS NOTE SERVICE DATE: 10/15/2022 SERVICE TIME: 11:07 AM PATIENT IDENTITY VERIFICATION COMPLETED USING TWO (2) STANDARD IDENTIFIERS: Name and Date of confirmed by patient verbally and Name and Date of confirmed by identification band FALL SCREENING: Has the patient had 2 falls in the last year or 1 fall with injury or currently using an Ambulatory Assistive Device (Walker, Cane, Wheelchair, Crutches, etc.)? No PATIENT GENDER DATA: .female : No ALLERGIES: Reviewed and unchanged MEDICATIONS REVIEWED: Not applicable PATIENT RELEVANT IMPLANT DATA REVIEWED: Not Applicable CREATININE: Creatinine Date Value Ref Range Status 05/23/2022 1.05 (H) 0.58 - 0.96 mg/dL Final 04/22/2022 0.92 0.58 - 0.96 mg/dL Final 12/04/2021 0.94 0.58 - 0.96 mg/dL Final Estimated Glomerular Filtration Rate Date Value Ref Range Status 05/23/2022 59 (L) >=60 mL/min/1.73m? Final Comment: Estimated Glomerular Filtration Rate (eGFR) is calculated using the 2020 CKD-EPI creatinine equation. This equation utilizes serum creatinine, sex, and age as parameters. The creatinine assay has traceable calibration to isotope dilution-mass spectrometry. Refer to KDIGO guidelines for clinical interpretation. In patients with unstable renal function, e.g. those with acute kidney injury, the eGFR may not accurately reflect actual GFR. eGFR- Date Value Ref Range Status 06/10/2021 >60 Final P.O.C.T. RESULTS: N/A October 15, [address] PERFORMED: No IV SITE: Ambulatory: A peripheral IV was started in the Right antecubital site with a Angio cath: 22 gauge. POST EXAM PIV STATUS: Discontinued PROCEDURE TYPE: NM INJECT: renal with lasix. 11.4 mCi Tc99m MAG-3. Lasix 40 milligrams intravenous at 9:08. ADMINISTRATION TIME: 8:30 PATIENT DISCHARGED TO: Ambulatory patient, left [place] department area. A Diagnostic radioactive procedure has taken place, with no further precautions necessary other than routine body substance precautions. More information regarding radiation safety can be found using this link: [email or web address] [email or web address] SIGNATURE: CELIA Vee PATIENT NAME: Asia Hawley DATE: October 15, 2022 TIME: 11:07 AM PAGER/CONTACT #: [facility] 10-15-2022 History of Present illness Narrative RADIOLOGY SERVICE PROGRESS NOTE SERVICE DATE: 10/15/2022 SERVICE TIME: 11:07 AM PATIENT IDENTITY VERIFICATION COMPLETED USING TWO (2) STANDARD IDENTIFIERS: Name and Date of confirmed by patient verbally and Name and Date of confirmed by identification band FALL SCREENING: Has the patient had 2 falls in the last year or 1 fall with injury or currently using an Ambulatory Assistive Device (Walker, Cane, Wheelchair, Crutches, etc.)? No PATIENT GENDER DATA: .female : No ALLERGIES: Reviewed and unchanged MEDICATIONS REVIEWED: Not applicable PATIENT RELEVANT IMPLANT DATA REVIEWED: Not Applicable CREATININE: Creatinine Date Value Ref Range Status 05/23/2022 1.05 (H) 0.58 - 0.96 mg/dL Final 04/22/2022 0.92 0.58 - 0.96 mg/dL Final 12/04/2021 0.94 0.58 - 0.96 mg/dL Final Estimated Glomerular Filtration Rate Date Value Ref Range Status 05/23/2022 59 (L) >=60 mL/min/1.73m Final Comment: Estimated Glomerular Filtration Rate (eGFR) is calculated using the 2020 CKD-EPI creatinine equation. This equation utilizes serum creatinine, sex, and age as parameters. The creatinine assay has traceable calibration to isotope dilution-mass spectrometry. Refer to KDIGO guidelines for clinical interpretation. In patients with unstable renal function, e.g. those with acute kidney injury, the eGFR may not accurately reflect actual GFR. eGFR- Date Value Ref Range Status 06/10/2021 >60 Final P.O.C.T. RESULTS: N/A October 15, [address] PERFORMED: No IV SITE: Ambulatory: A peripheral IV was started in the Right antecubital site with a Angio cath: 22 gauge. POST EXAM PIV STATUS: Discontinued PROCEDURE TYPE: NM INJECT: renal with lasix. 11.4 mCi Tc99m MAG-3. Lasix 40 milligrams intravenous at 9:08. ADMINISTRATION TIME: 8:30 PATIENT DISCHARGED TO: Ambulatory patient, left [place] department area. A Diagnostic radioactive procedure has taken place, with no further precautions necessary other than routine body substance precautions. More information regarding radiation safety can be found using this link: [email or web address] %[email or web address] SIGNATURE: CELIA Vee PATIENT NAME: Asia Hawley DATE: October 15, 2022 TIME: 11:07 AM PAGER/CONTACT #: documented in this encounter [facility] 10-13-2022 History of Present illness Narrative AMBULATORY TELEPHONE VISIT Asia Hawley has consented to this telephone encounter. Persons Present: patient 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/Reason: Botox follow up HPI: Pt s/p Botox 09/14/22 Data Reviewed: last OV/procedure note Symptoms s/p Botox - voiding every hour to 90 minutes at night - during the day voiding every 30 minutes - attempts to limit fluids in the evening Assessment: (R35.1) Nocturia (primary encounter diagnosis) (R35.0) Urinary frequency (N32.81) OAB (overactive bladder) Plan: Will forward to Dr. Mg for next steps - reviewed options may include Interstim, Botox with 200 units Total Time Spent: 15 minutes Lala Romero APRN.[employer] documented in this encounter [facility] 09-16-2022 Nurse Note Pt here for a dowd catheter removal s/p cystoscopy with Botox this past Wednesday09/14/22. Catheter removed without difficulty. No voiding trial done per Dr. Mg's orders. Urine in dowd bag clear, yellow. Pt denies any recent blood clots or blood in bag. Pt states her urine is back to normal. All questions answered. Contact information provided to pt. Pt to call with any other questions or concerns. Pt has follow up virtual appointment scheduled with [employer] following botox injections. documented in this encounter [facility] 08-20-2022 History of Present illness Narrative 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 Patient presents with: Follow Up HPI Asia Hawley is a 62 year old female who presents here today for an EC follow up. Pt seen in EC on 08/12/22 with c/o of cough, nasal congestion, rattling in the throat, ears fell plugged, low grade fevers mostly at night x 1 month. Reports fatigue. Has used OTC medications with no improvement. Her was sick with same sx was treated in EC with Augmentin he improved other than still has linger cough. Denies any covid contact/exposure. Pt had x-ray completed that showed no acute process. Was given Augmentin 875-125 mg 1 tab po bid for 7 days but only took it for 3 days due to diarrhea, denies any improvement while on antibiotic. Advised to f/u with PCP in 3-5 days if not improving. Was not tested for Covid or flu. Pt is on prednisone 10 mg daily chronically. Pt has hx of NSIP and follows with Pulmonary, Dr. Temple. Past medical history, appointments, medications, allergies reviewed. 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 Unspecified hypothyroidism Previous Surgical History PAST SURGICAL HISTORY Procedure Laterality Date ARTHRP INTERPOS INTERCARPAL/METACARPAL JOINTS Right 10/13/2017 Right thumb CMC arthroplasty with LRTI CAUTERY CERVIX CRYOCAUTERY INITIAL/REPEAT 1999 CHOLECYSTECTOMY Cholecystectomy COLONOSCOPY FLX DX W/COLLJ SPEC WHEN PFRMD 04/10/09 COLONOSCOPY FLX DX W/COLLJ SPEC WHEN PFRMD 09/05/14 Repeat 2024 COLONOSCOPY FLX DX W/COLLJ SPEC WHEN PFRMD 12/22/2017 Colonoscopy COLPOSCOPY CERVIX UPPER/ADJACENT VAGINA Multiple starting 1995 Colposcopy LAPAROSCOPY COLECTOMY PARTIAL W/ANASTOMOSIS 12/07/2009 diverticulitis LIG/TRNSXJ FLP TUBE ABDL/VAG APPR UNI/BI Tubal ligation LX PARTIAL COLECTOMY 12/23/2017 [facility] lap lysis of adhesions, left oopherectomy, right salpinoopherectomy, left salpingectomy, redo lap sigmoid colectomy w/ressection, lap mobilization of splenic flexure, lap appendectomy PAST SURGICAL HISTORY OF 10/2008 T9-L1 fusion, Dr. Lemon PAST SURGICAL HISTORY OF 10/24/2009 Removed T9-L1, 2 rods and 8 screws, Dr Lemon PAST SURGICAL HISTORY OF 11/2018 Hysteroscopy with D&C and Polypectomy with [employer] Truclear device PICC LINE INSERT/CONSULT 07/11/2018 THYMECTOMY PRTL/TOT TRANSCERVICAL APPR SPX 07/14/2017 WEDGE RESECT LUNG Right 03/25/2020 Right VATS wedge resection of upper, middle and lower lung for pulmonary infiltrates Family History FAMILY HISTORY Problem Relation Age of Onset Hypertension Mother Thyroid Mother Heart Father Hypertension Father COPD Father Smoker. Heart Maternal Grandmother Stroke Maternal Grandmother Cancer Maternal Grandmother COLON Cancer Paternal Grandmother STOMACH Patient Allergies ALLERGIES Allergen Reactions Environmental [Othe* ? what=congestion Hay Fever [Seasonal* Zyrtec [Cetirizine * Itching Current Medications Current Outpatient Medications on File Prior to Visit Medication Sig amoxicillin-clavulanic acid (AUGMENTIN) 875-125 mg per tablet Take 1 tablet by mouth twice daily for 7 days. nystatin (MYCOSTATIN) 100,000 unit/mL suspension Take 5 mL by mouth four times daily. Swish and swallow (5 mL) 4 times per day. levothyroxine (SYNTHROID) 100 mcg tablet Take 1 tablet by mouth once daily. Take on empty stomach mycophenolate Mofetil (CELLCEPT) 500 mg tablet Take 2 in am and one in pm estradiol (ESTRACE) 0.01 % (0.1 mg/gram) vaginal cream Use 1 g vaginally two times a week. calcium carbonate 600 mg-cholecalciferol 400 units 600 mg-10 mcg (400 unit) tab Take 1 tablet by mouth twice daily. metoclopramide HCl (REGLAN) 5 mg tablet Take 1 tablet by mouth three times daily. predniSONE (DELTASONE) 10 mg tablet Take 1 tablet by mouth once daily. predniSONE (DELTASONE) 20 mg tablet Take 40 mg daily for 5 days then, 30 mg daily for 5 days, then 20 mg for 5 days then back to 10 mg a day (Patient not taking: Reported on 07/01/2022) aspirin 81 mg chewable tablet Take 1 tablet by mouth once daily. acetaminophen (TYLENOL) 325 mg cap Take by mouth as needed. multivitamins(DAILY MULTIVITAMIN TAB) Take one(1) tablet daily. No current facility-administered medications on file prior to visit. Social History Social History Tobacco Use Smoking status: Never Smokeless tobacco: Never Tobacco comments: No one in household smokes. Smoker in childhood home. Vaping Use Vaping Use: Never used Substance Use Topics Alcohol use: Yes Comment: Rarely Drug use: No EXAM: BP 130/80 Pulse 78 Resp 16 Wt 90.4 kg (199 lb 3.2 oz) LMP 01/07/2011 BMI 33.15 kg/m General Appearance: Well appearing, alert, in no acute distress, well-hydrated, well nourished.. Ears: External ears normal, canals clear.. Neck: Supple, no adenopathy Lungs: Lungs clear to auscultation, some whistling heard Heart: RRR without murmur, gallop, or rubs. No ectopy. Health Maintenance List DTAP,TDAP,TD(3 - Td or Tdap) due on 04/29/2020 HIV SCREENING due on 12/19/2022 ANNUAL PCP TEAM CHRONIC DISEASE VISIT due on 06/22/2023 MAMMOGRAM due on 07/24/2023 PAP TESTING due on 08/24/2023 HPV TESTING due on 08/24/2023 LIPID SCREEN due on 08/28/2024 DIABETES SCREEN due on 05/23/2025 COLORECTAL CANCER SCREENING due on 12/23/2027 INFLUENZA Completed DEPRESSION ASSESSMENT Completed HEPATITIS C SCREENING Completed SHINGRIX VACCINE Completed COVID-19 VACCINE Completed PNEUMOCOCCAL Completed Data reviewed None ASSESSMENT/PLAN: 1. Bronchitis - ICD9: 490, ICD10: J40 (primary diagnosis) - DOXYCYCLINE HYCLATE 100 MG TABLET 2. ILD (interstitial lung disease) (HCC) - ICD9: 515, ICD10: J84.9 3. Subacute cough - ICD9: 786.2, ICD10: R05.2 Follow up prn; Call if not improving in 5-7 days I agree with the 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, ROS, and Past Histories independently gathered by the clinical it support consultant and the remaining scribed note accurately describes my personal service to the patient. Medical Decision Making: Problems: Low: Acute, uncomplicated illness or injury Risk: Moderate: Drug management Medical Decision Making Level: 3 - Low Piryanka D Elderbrock, MD The documentation for this note was completed by Susana Bhardwaj Ma acting as scribe for Priyanka Smith MD. August 20, 2022 2:13 PM. Susana Bhardwaj Ma documented in this encounter [facility] 08-13-2022 Miscellaneous Notes Pt was notified of the results. Pt verbalized understanding. Alysha Miller MA No acute findings noted on x-ray. Start antibiotics as prescribed. Follow-up with PCP next 3 to 5 days symptoms are not improving. Guillermo Mccormick APRN.SAMIR documented in this encounter [facility] 08-12-2022 History of Present illness Narrative Subjective HPI Nontoxic-appearing female presents urgent care chief complaint cough chest congestion. Duration of symptoms 2 weeks. Associated symptoms listed above. States she does have some low-grade fevers at night and night only. States is sick with similar signs symptoms. Has used OTC medications this has not helped. Most prominent symptom today is cough and fatigue. Denies any known COVID exposures. Is vaccinated against COVID-19. Risk factor interstitial lung disease CellCept and prednisone use. Denies any high fever body aches chills productive cough chest pain shortness of breath pleuritic pain hemoptysis nausea vomiting abdominal pain change in bowel or bladder habits. Past medical history prescription medication use and allergies reviewed. 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, 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 Unspecified hypothyroidism PAST SURGICAL HISTORY Procedure Laterality Date ARTHRP INTERPOS INTERCARPAL/METACARPAL JOINTS Right 10/13/2017 Right thumb CMC arthroplasty with LRTI CAUTERY CERVIX CRYOCAUTERY INITIAL/REPEAT 1999 CHOLECYSTECTOMY Cholecystectomy COLONOSCOPY FLX DX W/COLLJ SPEC WHEN PFRMD 04/10/09 COLONOSCOPY FLX DX W/COLLJ SPEC WHEN PFRMD 09/05/14 Repeat 2024 COLONOSCOPY FLX DX W/COLLJ SPEC WHEN PFRMD 12/22/2017 Colonoscopy COLPOSCOPY CERVIX UPPER/ADJACENT VAGINA Multiple starting 1995 Colposcopy LAPAROSCOPY COLECTOMY PARTIAL W/ANASTOMOSIS 12/07/2009 diverticulitis LIG/TRNSXJ FLP TUBE ABDL/VAG APPR UNI/BI Tubal ligation LX PARTIAL COLECTOMY 12/23/2017 [facility] lap lysis of adhesions, left oopherectomy, right salpinoopherectomy, left salpingectomy, redo lap sigmoid colectomy w/ressection, lap mobilization of splenic flexure, lap appendectomy PAST SURGICAL HISTORY OF 10/2008 T9-L1 fusion, Dr. Lemon PAST SURGICAL HISTORY OF 10/24/2009 Removed T9-L1, 2 rods and 8 screws, Dr Lemon PAST SURGICAL HISTORY OF 11/2018 Hysteroscopy with D&C and Polypectomy with [employer] Truclear device PICC LINE INSERT/CONSULT 07/11/2018 THYMECTOMY PRTL/TOT TRANSCERVICAL APPR SPX 07/14/2017 WEDGE RESECT LUNG Right 03/25/2020 Right VATS wedge resection of upper, middle and lower lung for pulmonary infiltrates ALLERGIES Environmental [Other], Hay Fever [Seasonal Allergies], and Zyrtec [Cetirizine Hcl] MEDICATIONS nystatin (MYCOSTATIN) 100,000 unit/mL suspension Take 5 mL by mouth four times daily. Swish and swallow (5 mL) 4 times per day. levothyroxine (SYNTHROID) 100 mcg tablet Take 1 tablet by mouth once daily. Take on empty stomach mycophenolate Mofetil (CELLCEPT) 500 mg tablet Take 2 in am and one in pm estradiol (ESTRACE) 0.01 % (0.1 mg/gram) vaginal cream Use 1 g vaginally two times a week. calcium carbonate 600 mg-cholecalciferol 400 units 600 mg-10 mcg (400 unit) tab Take 1 tablet by mouth twice daily. metoclopramide HCl (REGLAN) 5 mg tablet Take 1 tablet by mouth three times daily. predniSONE (DELTASONE) 10 mg tablet Take 1 tablet by mouth once daily. predniSONE (DELTASONE) 20 mg tablet Take 40 mg daily for 5 days then, 30 mg daily for 5 days, then 20 mg for 5 days then back to 10 mg a day (Patient not taking: Reported on 07/01/2022) aspirin 81 mg chewable tablet Take 1 tablet by mouth once daily. acetaminophen (TYLENOL) 325 mg cap Take by mouth as needed. multivitamins(DAILY MULTIVITAMIN TAB) Take one(1) tablet daily. FAMILY HISTORY Problem Relation Age of Onset Hypertension Mother Thyroid Mother Heart Father Hypertension Father COPD Father Smoker. Heart Maternal Grandmother Stroke Maternal Grandmother Cancer Maternal Grandmother COLON Cancer Paternal Grandmother STOMACH Social History Tobacco Use Smoking status: Never Smokeless tobacco: Never Tobacco comments: No one in household smokes. Smoker in childhood home. Vaping Use Vaping Use: Never used Substance Use Topics Alcohol use: Yes Comment: Rarely Drug use: No BP 120/78 Pulse 101 Temp 37.4 C (99.3 F) Resp 20 Wt 89.6 kg (197 lb 9.6 oz) LMP 01/07/2011 SpO2 99% BMI 32.88 kg/m Review of Systems Constitutional: Negative for chills, fever and malaise/fatigue. HENT: Positive for congestion. Negative for ear discharge, ear pain, sinus pain and sore throat. Eyes: Negative for blurred vision, pain, discharge and redness. Respiratory: Positive for cough. Negative for hemoptysis, sputum production, shortness of breath, wheezing and stridor. Cardiovascular: Negative for chest pain. Gastrointestinal: Negative for abdominal pain, diarrhea, nausea and vomiting. Musculoskeletal: Negative for myalgias. Skin: Negative for itching and rash. Neurological: Negative for dizziness and headaches. Objective Physical Exam Constitutional: General: She is not in acute distress. Appearance: She is not diaphoretic. HENT: Head: Normocephalic. Nose: Congestion present. Mouth/Throat: Mouth: Mucous membranes are moist. Pharynx: Oropharynx is clear. No oropharyngeal exudate or posterior oropharyngeal erythema. Eyes: Conjunctiva/sclera: Conjunctivae normal. Pupils: Pupils are equal, round, and reactive to light. Cardiovascular: Rate and Rhythm: Normal rate and regular rhythm. Heart sounds: Normal heart sounds. Pulmonary: Effort: Pulmonary effort is normal. No tachypnea, accessory muscle usage or respiratory distress. Breath sounds: No stridor. Wheezing present. Abdominal: Palpations: Abdomen is soft. Tenderness: There is no abdominal tenderness. There is no guarding or rebound. Musculoskeletal: Cervical back: Normal range of motion and neck supple. No rigidity or tenderness. Lymphadenopathy: Cervical: No cervical adenopathy. Skin: General: Skin is warm and dry. Neurological: Mental Status: She is alert and oriented to person, place, and time. ASSESSMENT/PLAN: 1. Acute cough - ICD9: 786.2, ICD10: R05.1 (primary diagnosis) - XR CHEST 2V FRONTAL/LAT 2. Sinobronchitis - ICD9: 473.9, 490, ICD10: J32.9, J40 Patient diagnosed with sinobronchitis. No acute findings noted on x-ray. Duration of cough increasing sinus pressure and immunosuppression state patient will be placed on Augmentin. Patient was educated on supportive therapies. Follow-up with PCP 2 to 3 days reevaluation. Patient was instructed to immediately proceed to emergency room for any new, worsening, or symptoms lasting longer than anticipated. The patient's clinical presentation is otherwise unremarkable at this time. Based on exam and clinical finding, the patient is stable for discharge. Plan of care was discussed with patient. Patient verbalizes understanding and agrees to plan of care. This note was generated using [employer] software. It may contain errors in wording, punctuation, or spelling. Guillermo Mccormick APRN.SAMIR documented in this encounter [facility] 08-11-2022 Note HNO ID: [id number] Author: MARK Earl Service: Radiology Author Type: Technologist Type: Progress Notes Filed: 08/11/2022 3:33 PM Note Text: Radiology Service Progress Note PATIENT NAME: Asia Hawley DATE OF SERVICE: August 11, 2022 TIME: 3:33 PM PATIENT IDENTITY VERIFICATION COMPLETED USING TWO (2) IDENTIFIERS: Name and Date of confirmed by patient verbally. FALL SCREENING: Has the patient had 2 falls in the last year or 1 fall with injury or currently using an Ambulatory Assistive Device (Walker, Cane, Wheelchair, Crutches, etc.)? No PATIENT GENDER DATA: Female. status: : No status: NO. PATIENT RELEVANT IMPLANT DATA REVIEWED: Not Applicable RADIOLOGY DEPARTMENT: General X-ray: Exam(s) Completed: Abdomen X-Ray: Abdomen PERIPHERAL IV DATA: Not applicable SIGNED BY: MARK Earl August 11, 2022 3:33 PM [facility] 08-11-2022 History of Present illness Narrative Radiology Service Progress Note PATIENT NAME: Asia Hawley DATE OF SERVICE: August 11, 2022 TIME: 3:33 PM PATIENT IDENTITY VERIFICATION COMPLETED USING TWO (2) IDENTIFIERS: Name and Date of confirmed by patient verbally. FALL SCREENING: Has the patient had 2 falls in the last year or 1 fall with injury or currently using an Ambulatory Assistive Device (Walker, Cane, Wheelchair, Crutches, etc.)? No PATIENT GENDER DATA: Female. status: : No status: NO. PATIENT RELEVANT IMPLANT DATA REVIEWED: Not Applicable RADIOLOGY DEPARTMENT: General X-ray: Exam(s) Completed: Abdomen X-Ray: Abdomen PERIPHERAL IV DATA: Not applicable SIGNED BY: MARK Earl August 11, 2022 3:33 PM documented in this encounter [facility] 08-11-2022 History of Present illness Narrative ESTABLISHED PATIENT OFFICE VISIT HPI Asia Hawley is a 62 year old female who presents refer for frequency/urgency. On no current meds. Has to void q 2 hours day and night. Ho colon resection. Has severe constipation. Has bm 1x/week. Seeing her general surgeon soon. Supposed to be taking fiber, however has not been. On probiotic however. Does not get uti's per patient. Drinks minimal caffeine. Has long ho microhematuria. No imaging ever done 05/23/19 - better with oxy 10 er. Has not really addressed constipation 05/21/20 - stable on oxy 10 er. Constipation better. Ua+ 05/20/20 - oxybutynin no longer helping. Stopped. Would like to try another medicine for now. Would consider PFT in the spring. 08/11/22 - now seeing dr. Mg for botox injection to be done soon. She noticed blood in the urine. Ct scan showed r upj obstruction and L lower pole 9mm renal calc. No fever. No uti. No flank pain. LAB: Creatinine Date Value Ref Range Status 05/23/2022 1.05 (H) 0.58 - 0.96 mg/dL Final No results found for: PSA Glucose, Urine Date Value 05/22/2022 Negative 03/22/2020 Negative mg/dL Bilirubin, Urine (no units) Date Value 05/22/2022 Negative 03/22/2020 Negative Ketones, Urine (no units) Date Value 05/22/2022 Negative 03/22/2020 Negative Specific [place], Ur (no units) Date Value 05/22/2022 1.010 03/22/2020 1.021 Hemoglobin/Blood,Ur Date Value 05/22/2022 3+ 03/22/2020 2+ pH, Urine (no units) Date Value 05/22/2022 7.0 03/22/2020 6.0 Protein, Urine (no units) Date Value 05/22/2022 1+ 03/22/2020 2+ Urobilinogen, Urine (EU) Date Value 04/13/2011 normal Nitrites (no units) Date Value 05/22/2022 Negative 03/22/2020 Negative Leukocytes (no units) Date Value 04/13/2011 large WBC, Urine Date Value 05/22/2022 6-10 /HPF 03/22/2020 0-5 /HPF Color/Appearance (comment:) Date Value 04/13/2011 tea/cloudy MEDICATIONS: nystatin (MYCOSTATIN) 100,000 unit/mL suspension Take 5 mL by mouth four times daily. Swish and swallow (5 mL) 4 times per day. levothyroxine (SYNTHROID) 100 mcg tablet Take 1 tablet by mouth once daily. Take on empty stomach mycophenolate Mofetil (CELLCEPT) 500 mg tablet Take 2 in am and one in pm estradiol (ESTRACE) 0.01 % (0.1 mg/gram) vaginal cream Use 1 g vaginally two times a week. calcium carbonate 600 mg-cholecalciferol 400 units 600 mg-10 mcg (400 unit) tab Take 1 tablet by mouth twice daily. metoclopramide HCl (REGLAN) 5 mg tablet Take 1 tablet by mouth three times daily. predniSONE (DELTASONE) 10 mg tablet Take 1 tablet by mouth once daily. aspirin 81 mg chewable tablet Take 1 tablet by mouth once daily. acetaminophen (TYLENOL) 325 mg cap Take by mouth as needed. multivitamins(DAILY MULTIVITAMIN TAB) Take one(1) tablet daily. predniSONE (DELTASONE) 20 mg tablet Take 40 mg daily for 5 days then, 30 mg daily for 5 days, then 20 mg for 5 days then back to 10 mg a day (Patient not taking: Reported on 07/01/2022) REVIEW OF SYSTEMS Review of Systems Constitutional: Negative. Respiratory: Negative. Cardiovascular: Negative. Gastrointestinal: Negative. Genitourinary: Negative. Skin: Negative. Neurological: Negative. Psychiatric/Behavioral: Negative. 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 Heart Maternal Grandmother Stroke Maternal Grandmother Cancer Maternal Grandmother COLON Cancer Paternal Grandmother STOMACH SOCIAL HISTORY Social History Tobacco Use Smoking status: Never Smokeless tobacco: Never Tobacco comments: No one in household smokes. Smoker in childhood home. Vaping Use Vaping Use: Never used Substance Use Topics Alcohol use: Yes Comment: Rarely Drug use: No PHYSICAL EXAMINATION General appearance: Well appearing, alert, in no acute distress, and well-hydrated, well nourished Skin: Skin color, texture, turgor normal, no suspicious rashes or lesions Respiratory:+ effort Cardiovascular: Not examined GI: Normal abdominal exam, Abdomen soft, non-tender. No masses, organomegaly Musculoskeletal: Negative Neuro: Negative Genitourinary: not examined Impression: (N20.0) Kidney stone (primary encounter diagnosis) (N13.0) 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 (Q62.11) Hydronephrosis with ureteropelvic junction (UPJ) obstruction Plan: Kub Renal lasix scan Fu after Mathew Yang Jr, MD 08/11/2022 documented in this encounter [facility] 07-24-2022 Miscellaneous Notes July 27, 2022 PID: [id number] Asia Henry Chandan [address] [place] [address] Dear Ms. Hawley, We are pleased to inform you that the results of your recent breast imaging exam on 07/23/2022 are normal. Early detection of cancer is very important. We also understand recommendations regarding breast cancer screening are controversial. Please discuss with your primary care provider which strategy is best for you and whether a mammogram is right for you. Your imaging studies and report will be kept on file at [facility] as part of your permanent medical record and are available for your continuing care. Thank you for allowing us to help in meeting your health care needs. Sincerely, Dr. Sherman Interpreting Radiologist [facility] (Normal over 40) documented in this encounter [facility] 07-23-2022 History of Present illness Narrative Radiology Service Progress Note PATIENT NAME: Asia Hawley DATE OF SERVICE: July 23, 2022 TIME: 12:44 PM PATIENT IDENTITY VERIFICATION COMPLETED USING TWO (2) IDENTIFIERS: Name and Date of confirmed by patient verbally. FALL SCREENING: Has the patient had 2 falls in the last year or 1 fall with injury or currently using an Ambulatory Assistive Device (Walker, Cane, Wheelchair, Crutches, etc.)? No PATIENT GENDER DATA: Female. status: : No status: NO. PATIENT RELEVANT IMPLANT DATA REVIEWED: Not Applicable RADIOLOGY DEPARTMENT: Mammography PERIPHERAL IV DATA: Not applicable SIGNED BY: RT Ly(R) July 23, 2022 12:44 PM documented in this encounter [facility] 07-01-2022 Instructions KAUSHAL Lockhart - 07/01/2022 6:12 PM EST PHARYNGITIS PATIENT INSTRUCTIONS DESCRIPTION: Inflammation and infection of the pharynx that can be caused by a variety of germs. SIGNS AND SYMPTOMS: -Sore throat. -Swallowing difficulty. -Tickle or lump in the throat. -Fever. -Swollen glands in the neck (sometimes). -Throat may be red or covered with a grayish membrane (sometimes). -Generalized aching. CAUSES: Infection from bacteria, viruses or fungi. PREVENTIVE MEASURES: -Avoid close contact with anyone with a sore throat. -Keep immunizations, including diphtheria, up to date. TREATMENT: -Laboratory throat culture and blood count may be done to determine type of infection. -Home care is usually sufficient. -Use gargles to relieve throat pain. Prepare double strength tea, hot or cold, or a salt-water solution (1 teaspoon salt in 8 oz. warm water). Use to gargle as often as you wish. -Use a cool-mist ultrasonic humidifier to increase air moisture. This will relieve the dry, tight feeling in the throat. Clean humidifier daily. -If the glands are large and tender, apply moist, warm soaks at least 4 times a day for 30 to 60 minutes. The compresses will be more effective if they are kept warm. Be careful not to burn the skin. -Replace your toothbrush. It may be harboring germs. -Until infection is gone, don't share washcloths; or food. MEDICATIONS: -For minor discomfort you may use non-prescription drugs such as acetaminophen. Don't give aspirin to a child for any viral illness. -Non-prescription throat lozenges may help ease discomfort. -Antibiotics or antifungal agents to fight bacterial or fungal infections. Be sure to finish entire course of prescribed antibiotics to avoid complications. ACTIVITY: Limited activity is necessary until symptoms disappear. DIET: Extra fluids are necessary. Drink at least 8 glasses of fluid daily, more for high fevers. If swallowing solid food is painful, try a liquid or soft diet for a few days. NOTIFY OFFICE: -The following occur during treatment: Breathing or swallowing difficulty. Fever; severe headache. Thick mucus drainage from the nose. Productive cough that is discolored. Skin rash. Dark urine. Chest pain. documented in this encounter [facility] 07-01-2022 History of Present illness Narrative This note was created using [employer]. Subjective Asia Hawley is a 62 year old female. HPI 62-year-old female presents for fever and sore throat. Patient states that fever started on Wednesday. She started getting a sore throat last night. No runny nose. States she always has a dry cough, unchanged. No chest pain or shortness of breath. No vomiting or diarrhea. States that she was exposed to strep a few weeks ago. 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, 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 Unspecified hypothyroidism PAST SURGICAL HISTORY Procedure Laterality Date ARTHRP INTERPOS INTERCARPAL/METACARPAL JOINTS Right 10/13/2017 Right thumb CMC arthroplasty with LRTI CAUTERY CERVIX CRYOCAUTERY INITIAL/REPEAT 1999 CHOLECYSTECTOMY Cholecystectomy COLONOSCOPY FLX DX W/COLLJ SPEC WHEN PFRMD 04/10/09 COLONOSCOPY FLX DX W/COLLJ SPEC WHEN PFRMD 09/05/14 Repeat 2024 COLONOSCOPY FLX DX W/COLLJ SPEC WHEN PFRMD 12/22/2017 Colonoscopy COLPOSCOPY CERVIX UPPER/ADJACENT VAGINA Multiple starting 1995 Colposcopy LAPAROSCOPY COLECTOMY PARTIAL W/ANASTOMOSIS 12/07/2009 diverticulitis LIG/TRNSXJ FLP TUBE ABDL/VAG APPR UNI/BI Tubal ligation LX PARTIAL COLECTOMY 12/23/2017 [facility] lap lysis of adhesions, left oopherectomy, right salpinoopherectomy, left salpingectomy, redo lap sigmoid colectomy w/ressection, lap mobilization of splenic flexure, lap appendectomy PAST SURGICAL HISTORY OF 10/2008 T9-L1 fusion, Dr. Lemon PAST SURGICAL HISTORY OF 10/24/2009 Removed T9-L1, 2 rods and 8 screws, Dr Lemon PAST SURGICAL HISTORY OF 11/2018 Hysteroscopy with D&C and Polypectomy with [employer] and [employer] Truclear device PICC LINE INSERT/CONSULT 07/11/2018 THYMECTOMY PRTL/TOT TRANSCERVICAL APPR SPX 07/14/2017 WEDGE RESECT LUNG Right 03/25/2020 Right VATS wedge resection of upper, middle and lower lung for pulmonary infiltrates ALLERGIES Environmental [Other], Hay Fever [Seasonal Allergies], and Zyrtec [Cetirizine Hcl] MEDICATIONS nystatin (MYCOSTATIN) 100,000 unit/mL suspension Take 5 mL by mouth four times daily. Swish and swallow (5 mL) 4 times per day. levothyroxine (SYNTHROID) 100 mcg tablet Take 1 tablet by mouth once daily. Take on empty stomach mycophenolate Mofetil (CELLCEPT) 500 mg tablet Take 2 in am and one in pm estradiol (ESTRACE) 0.01 % (0.1 mg/gram) vaginal cream Use 1 g vaginally two times a week. calcium carbonate 600 mg-cholecalciferol 400 units 600 mg-10 mcg (400 unit) tab Take 1 tablet by mouth twice daily. metoclopramide HCl (REGLAN) 5 mg tablet Take 1 tablet by mouth three times daily. predniSONE (DELTASONE) 10 mg tablet Take 1 tablet by mouth once daily. predniSONE (DELTASONE) 20 mg tablet Take 40 mg daily for 5 days then, 30 mg daily for 5 days, then 20 mg for 5 days then back to 10 mg a day (Patient not taking: Reported on 07/01/2022) aspirin 81 mg chewable tablet Take 1 tablet by mouth once daily. acetaminophen (TYLENOL) 325 mg cap Take by mouth as needed. multivitamins(DAILY MULTIVITAMIN TAB) Take one(1) tablet daily. FAMILY HISTORY Problem Relation Age of Onset Hypertension Mother Thyroid Mother Heart Father Hypertension Father COPD Father Smoker. Heart Maternal Grandmother Stroke Maternal Grandmother Cancer Maternal Grandmother COLON Cancer Paternal Grandmother STOMACH Social History Tobacco Use Smoking status: Never Smokeless tobacco: Never Tobacco comments: No one in household smokes. Smoker in childhood home. Vaping Use Vaping Use: Never used Substance Use Topics Alcohol use: Yes Comment: Rarely Drug use: No Review of Systems Constitutional: Positive for chills and fever. HENT: Positive for sore throat. Negative for congestion and ear pain. Respiratory: Negative for cough and shortness of breath. Cardiovascular: Negative for chest pain. Gastrointestinal: Negative for diarrhea and vomiting. Objective BP 114/72 Pulse 98 Temp 37.4 C (99.3 F) Resp 18 Wt 91.5 kg (201 lb 12.8 oz) LMP 01/07/2011 SpO2 98% BMI 33.07 kg/m Physical Exam Vitals and nursing note reviewed. Constitutional: General: She is not in acute distress. Appearance: Normal appearance. She is not toxic-appearing. HENT: Right Ear: Tympanic membrane and ear canal normal. Left Ear: Tympanic membrane and ear canal normal. Nose: Nose normal. No congestion. Mouth/Throat: Mouth: Mucous membranes are moist. Pharynx: Uvula midline. Posterior oropharyngeal erythema present. No oropharyngeal exudate. Tonsils: No tonsillar exudate. 0 on the right. 0 on the left. Eyes: Conjunctiva/sclera: Conjunctivae normal. Cardiovascular: Rate and Rhythm: Normal rate and regular rhythm. Pulmonary: Effort: Pulmonary effort is normal. Breath sounds: Normal breath sounds. Neurological: Mental Status: She is alert. Assessment and Plan ASSESSMENT/PLAN: 1. Sore throat - ICD9: 462, ICD10: J02.9 (primary diagnosis) - suspect viral - Alere Strep Test negative, no culture pending - Discussed supportive care treatment with fluids, rest and analgesia. - STREP A MOLECULAR (POC) 2. Fever, unspecified fever cause - ICD9: 780.60, ICD10: R50.9 -Suspect viral illness. -Offered COVID/flu swab although patient is out of window for antiviral and Tamiflu. Patient declines. -Recommend supportive treatment, Tylenol/Motrin at home. -Follow-up with PCP if symptoms persist or go to ER if worsening. Diagnosis and treatment plan were discussed and questions were answered to the patient's satisfaction. Pt acknowledged understanding of concepts and follow up plan. Specific signs and symptoms that would indicate the need for higher level of care were discussed in detail warranting prompt ER evaluation. KAUSHAL Lockhart documented in this encounter [facility] 06-22-2022 Instructions Susana Bhardwaj Ma - 06/22/2022 3:02 PM EST Follow up in 6 months as scheduled. documented in this encounter [facility] 06-22-2022 History of Present illness Narrative 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 Patient presents with: 6 Month Exam HPI Asia Hawley is a 62 year old female who presents here today for a 6 month follow up. Pt here today for her routine 6 month follow up. No bowel, Gi, or urinary issues. Follows with Dr. Mg Uro [facility]. Hx of acute cystitis, gross hematuria and OAB. Pt using Estrace vaginal cream. Previously took Mybetriq. She does have some burning with urination which she is working with [facility]/Uro with. She had a CT scan done that did show some non obstructing kidney stones. She states that she does occ have blood in the urine or when she wipes. Pt advised to follow up with U[facility] as scheduled and if any other questions/concerns to contact their office. GERD: Stable. No longer on Omeprazole. Has followed with GI in the past for issues of brad esophagitis, odynophagia and esophageal dysmotility. Has used Nystatin rinse in the past. Her Gastro doctor Dr. Franklin has moved to [place] and she doesn't want to drive that far. Thyroid: Stable on current regimen of Levothyroxine 100 mcg once daily. Denies any missed dosages. Pulm: Hx of ILD/NSIP, follows with Dr. Temple every 6 months. Pt on current regimen of Cellcept 500 mg bid, Reglan 5 mg ID and Prednisone 10 mg once daily. Hopes to be off Prednisone in the future. PFT completed 08/12/21. Last CT chest completed 04/07, next due October 2022. Pt is on the Prednisone for life she says, tried to get off it last visit but was told no. Past medical history, appointments, medications, allergies reviewed. 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, 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 Unspecified hypothyroidism Previous Surgical History PAST SURGICAL HISTORY Procedure Laterality Date ARTHRP INTERPOS INTERCARPAL/METACARPAL JOINTS Right 10/13/2017 Right thumb CMC arthroplasty with LRTI CAUTERY CERVIX CRYOCAUTERY INITIAL/REPEAT 1999 CHOLECYSTECTOMY Cholecystectomy COLONOSCOPY FLX DX W/COLLJ SPEC WHEN PFRMD 04/10/09 COLONOSCOPY FLX DX W/COLLJ SPEC WHEN PFRMD 09/05/14 Repeat 2024 COLONOSCOPY FLX DX W/COLLJ SPEC WHEN PFRMD 12/22/2017 Colonoscopy COLPOSCOPY CERVIX UPPER/ADJACENT VAGINA Multiple starting 1995 Colposcopy LAPAROSCOPY COLECTOMY PARTIAL W/ANASTOMOSIS 12/07/2009 diverticulitis LIG/TRNSXJ FLP TUBE ABDL/VAG APPR UNI/BI Tubal ligation LX PARTIAL COLECTOMY 12/23/2017 [facility] lap lysis of adhesions, left oopherectomy, right salpinoopherectomy, left salpingectomy, redo lap sigmoid colectomy w/ressection, lap mobilization of splenic flexure, lap appendectomy PAST SURGICAL HISTORY OF 10/2008 T9-L1 fusion, Dr. Lemon PAST SURGICAL HISTORY OF 10/24/2009 Removed T9-L1, 2 rods and 8 screws, Dr Lemon PAST SURGICAL HISTORY OF 11/2018 Hysteroscopy with D&C and Polypectomy with [employer] Truclear device PICC LINE INSERT/CONSULT 07/11/2018 THYMECTOMY PRTL/TOT TRANSCERVICAL APPR SPX 07/14/2017 WEDGE RESECT LUNG Right 03/25/2020 Right VATS wedge resection of upper, middle and lower lung for pulmonary infiltrates Family History FAMILY HISTORY Problem Relation Age of Onset Hypertension Mother Thyroid Mother Heart Father Hypertension Father COPD Father Smoker. Heart Maternal Grandmother Stroke Maternal Grandmother Cancer Maternal Grandmother COLON Cancer Paternal Grandmother STOMACH Patient Allergies ALLERGIES Allergen Reactions Environmental [Othe* ? what=congestion Hay Fever [Seasonal* Zyrtec [Cetirizine * Itching Current Medications Current Outpatient Medications on File Prior to Visit Medication Sig levothyroxine (SYNTHROID) 100 mcg tablet Take 1 tablet by mouth once daily. Take on empty stomach iv contrast (will be provided with radiology test) CT Urogram WO/W Inject, intravenously, once for 1 dose.No IV access, insert saline lock prior to the beginning of sedation, infusion, injection of imaging exam. Discontinue saline lock post exam. If Pt. has a central line or IVAD, may access for administration according to line specific nursing protocol. Once exam is complete flush line and de-access according to line specific nursing protocol in the CT contrast administration guidelines link. nystatin (MYCOSTATIN) 100,000 unit/mL suspension Take 5 mL by mouth four times daily. Swish and swallow (5 mL) 4 times per day. mycophenolate Mofetil (CELLCEPT) 500 mg tablet Take 2 in am and one in pm estradiol (ESTRACE) 0.01 % (0.1 mg/gram) vaginal cream Use 1 g vaginally two times a week. calcium carbonate 600 mg-cholecalciferol 400 units 600 mg-10 mcg (400 unit) tab Take 1 tablet by mouth twice daily. metoclopramide HCl (REGLAN) 5 mg tablet Take 1 tablet by mouth three times daily. predniSONE (DELTASONE) 10 mg tablet Take 1 tablet by mouth once daily. predniSONE (DELTASONE) 20 mg tablet Take 40 mg daily for 5 days then, 30 mg daily for 5 days, then 20 mg for 5 days then back to 10 mg a day aspirin 81 mg chewable tablet Take 1 tablet by mouth once daily. acetaminophen (TYLENOL) 325 mg cap Take by mouth as needed. multivitamins(DAILY MULTIVITAMIN TAB) Take one(1) tablet daily. No current facility-administered medications on file prior to visit. Social History Social History Tobacco Use Smoking status: Never Smokeless tobacco: Never Tobacco comments: No one in household smokes. Smoker in childhood home. Vaping Use Vaping Use: Never used Substance Use Topics Alcohol use: Yes Comment: Rarely Drug use: No EXAM: BP 118/70 Pulse 74 Resp 16 Wt 93.1 kg (205 lb 3.2 oz) LMP 01/07/2011 BMI 33.63 kg/m General Appearance: Well appearing, alert, in no acute distress, well-hydrated, well nourished. and Overweight. Lungs: Lungs with faint crackles diffusely Heart: RRR without murmur, gallop, or rubs. No ectopy. Health Maintenance List DTAP,TDAP,TD(3 - Td or Tdap) due on 04/29/2020 PNEUMOCOCCAL(2 - PCV) due on 04/21/2022 DEPRESSION ASSESSMENT Never done MAMMOGRAM due on 06/26/2022 HIV SCREENING due on 12/19/2022 ANNUAL PCP TEAM CHRONIC DISEASE VISIT due on 12/19/2022 PAP TESTING due on 08/24/2023 HPV TESTING due on 08/24/2023 LIPID SCREEN due on 08/28/2024 DIABETES SCREEN due on 05/23/2025 COLORECTAL CANCER SCREENING due on 12/23/2027 INFLUENZA Completed HEPATITIS C SCREENING Completed SHINGRIX VACCINE Completed COVID-19 VACCINE Completed Data reviewed Appointment on 05/23/2022 Component Date Value TSH 05/23/2022 1.560 WBC 05/23/2022 11.67 (A) RBC 05/23/2022 4.96 Hemoglobin 05/23/2022 13.8 Hematocrit 05/23/2022 43.9 MCV 05/23/2022 88.5 MCH 05/23/2022 27.8 MCHC 05/23/2022 31.4 RDW-CV 05/23/2022 13.6 Platelet Count 05/23/2022 299 MPV 05/23/2022 10.8 Neut% 05/23/2022 71.8 Abs Neut 05/23/2022 8.39 (A) Lymph% 05/23/2022 19.5 Abs Lymph 05/23/2022 2.27 [place]% 05/23/2022 7.5 Abs [place] 05/23/2022 0.88 (A) Eosin% 05/23/2022 0.1 Abs Eosin 05/23/2022 <0.03 Baso% 05/23/2022 0.2 Abs Baso 05/23/2022 <0.03 Immature Gran % 05/23/2022 0.9 Abs Immature Gran 05/23/2022 0.10 (A) NRBC 05/23/2022 0.0 Absolute nRBC 05/23/2022 <0.01 Diff Type 05/23/2022 Auto Protein, Total 05/23/2022 6.9 Albumin 05/23/2022 4.1 Calcium, Total 05/23/2022 9.7 Bilirubin, Total 05/23/2022 0.4 Alkaline Phosphatase 05/23/2022 72 AST 05/23/2022 21 ALT 05/23/2022 14 Glucose 05/23/2022 84 BUN 05/23/2022 25 (A) Creatinine 05/23/2022 1.05 (A) Sodium 05/23/2022 142 Potassium 05/23/2022 4.0 Chloride 05/23/2022 107 (A) CO2 05/23/2022 27 Anion Gap 05/23/2022 8 (A) Estimated Glomerular Rm* 05/23/2022 59 (A) Office Visit on 05/22/2022 Component Date Value Culture, Urine 05/22/2022 50,000-<100,000 CFU/ml Proteus mirabilis (A) Color 05/22/2022 [place] (A) Clarity 05/22/2022 Clear Glucose, Urine 05/22/2022 Negative Bilirubin, Urine 05/22/2022 Negative Ketones, Urine 05/22/2022 Negative Specific [place], Ur 05/22/2022 1.010 Hemoglobin/Blood,Ur 05/22/2022 3+ (A) pH, Urine 05/22/2022 7.0 Protein, Urine 05/22/2022 1+ (A) Urobilinogen 05/22/2022 0.2 EU/dL Nitrites 05/22/2022 Negative Leuk Esterase 05/22/2022 1+ (A) WBC, Urine 05/22/2022 6-10 /HPF (A) RBC, Urine 05/22/2022 3-5 /HPF (A) Bacteria 05/22/2022 Many (A) Squamous Epithelial Cells 05/22/2022 Few Procedure on 05/22/2022 Component Date Value GLUCOSE UA (POCT) 05/22/2022 Negative BILIRUBIN UA (POCT) 05/22/2022 Negative KETONE UA (POCT) 05/22/2022 Negative SPECIFIC GRAVITY UA (POC* 05/22/2022 1.015 HEMOGLOBIN/BLOOD UA (PO* 05/22/2022 Large (A) PH UA (POCT) 05/22/2022 6.5 PROTEIN UA (POCT) 05/22/2022 100 (A) UROBILINOGEN UA (POCT) 05/22/2022 0.2 NITRITE UA (POCT) 05/22/2022 Negative LEUKOCYTES UA (POCT) 05/22/2022 Small (A) COLOR UA (POCT) 05/22/2022 [place] CLARITY UA (POCT) 05/22/2022 Clear Appointment on 04/22/2022 Component Date Value Protein, Total 04/22/2022 7.2 Albumin 04/22/2022 4.1 Calcium, Total 04/22/2022 10.1 Bilirubin, Total 04/22/2022 0.4 Alkaline Phosphatase 04/22/2022 76 AST 04/22/2022 29 ALT 04/22/2022 21 Glucose 04/22/2022 86 BUN 04/22/2022 29 (A) Creatinine 04/22/2022 0.92 Sodium 04/22/2022 139 Potassium 04/22/2022 4.8 Chloride 04/22/2022 104 CO2 04/22/2022 24 Anion Gap 04/22/2022 11 Estimated Glomerular Rm* 04/22/2022 70 WBC 04/22/2022 13.58 (A) RBC 04/22/2022 5.03 Hemoglobin 04/22/2022 14.0 Hematocrit 04/22/2022 44.9 MCV 04/22/2022 89.3 MCH 04/22/2022 27.8 MCHC 04/22/2022 31.2 RDW-CV 04/22/2022 13.5 Platelet Count 04/22/2022 322 MPV 04/22/2022 10.9 Absolute nRBC 04/22/2022 <0.01 Results Only on 04/22/2022 Component Date Value Entry Level Paralegal 04/22/2022 Value:Provider UMBEL your patient ASIA HAWLEY has not started their Laila program, time has . Laila program: PATIENT SAFETY AND FALL PREVENTION ASSESSMENT/PLAN: 1. Acquired hypothyroidism - ICD9: 244.9, ICD10: E03.9 (primary diagnosis) - Instructed patient on importance of taking on an empty stomach either first thing in the morning or at bedtime. Continue current medications. 2. Brad infection - ICD9: 112.9, ICD10: B37.9 Controlled Continue current medications. - NYSTATIN 100,000 UNIT/ML ORAL SUSPENSION 3. Need for vaccination - ICD9: V05.9, ICD10: Z23 Prevnar 20 given today 4. ILD Follow with Pulm Follow up in 6 months with labs prior. I agree with the 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, ROS, and Past Histories independently gathered by the clinical it support consultant and the remaining scribed note accurately describes my personal service to the patient. Medical Decision Making: Problems: Moderate: 2+ stable chronic illnesses Data: Unique test result(s) reviewed: 2 Unique test(s) ordered: 2 Risk: Moderate: Drug management Medical Decision Making Level: 4 - Moderate Priyanka Smith MD The documentation for this note was completed by Susana Bhardwaj Ma acting as scribe for Priyanka Smith MD. June 22, 2022 2:45 PM. Susana Bhardwaj Ma documented in this encounter [facility] 06-17-2022 History of Present illness Narrative Order for consult to urology documented in this encounter [facility] 06-12-2022 Miscellaneous Notes The following approved medication requests have been transmitted electronically. Requested Prescriptions Pending Prescriptions Disp Refills levothyroxine (SYNTHROID) 100 mcg tablet 90 tablet 3 Sig: Take 1 tablet by mouth once daily. Take on empty stomach Juwan Tobar APRN.SAMIR Patient phones requesting refills as follows: Requested Prescriptions Pending Prescriptions Disp Refills levothyroxine (SYNTHROID) 100 mcg tablet 90 tablet 3 Sig: Take 1 tablet by mouth once daily. Take on empty stomach AMAN-12/19/21 Labs-05/23/22 NOV-06/22/22 Med filled 06/16/21 Please review and advise. Mariam Woods LPN documented in this encounter [facility] 06-09-2022 History of Present illness Narrative Radiology Service Progress Note DATE OF SERVICE: June 09, 2022 TIME: 10:34 AM PATIENT IDENTITY VERIFICATION COMPLETED USING TWO (2) STANDARD IDENTIFIERS: Name and Date of confirmed by patient verbally. FALL SCREENING: Has the patient had 2 falls in the last year or 1 fall with injury or currently using an Ambulatory Assistive Device (Walker, Cane, Wheelchair, Crutches, etc.)? No PATIENT GENDER DATA: Female. status: : No status: NO. PATIENT RELEVANT IMPLANT DATA REVIEWED: Yes ALLERGIES: Reviewed and unchanged CONTRAST ALLERGY: NO. EXAM: CT -CONTRAST INDUCED NEPHROPATHY RISK FACTORS: Patient age > 60 years CREATININE: Creatinine Date Value Ref Range Status 05/23/2022 1.05 (H) 0.58 - 0.96 mg/dL Final 04/22/2022 0.92 0.58 - 0.96 mg/dL Final 12/04/2021 0.94 0.58 - 0.96 mg/dL Final Estimated Glomerular Filtration Rate Date Value Ref Range Status 05/23/2022 59 (L) >=60 mL/min/1.73m Final Comment: Estimated Glomerular Filtration Rate (eGFR) is calculated using the 2020 CKD-EPI creatinine equation. This equation utilizes serum creatinine, sex, and age as parameters. The creatinine assay has traceable calibration to isotope dilution-mass spectrometry. Refer to KDIGO guidelines for clinical interpretation. In patients with unstable renal function, e.g. those with acute kidney injury, the eGFR may not accurately reflect actual GFR. eGFR- Date Value Ref Range Status 06/10/2021 >60 Final P.O.C.T. RESULTS: POC done: Yes, See Lab Tab June 09, 2022 TREATMENT: N/A PERIPHERAL IV DATA: Ambulatory: A peripheral IV was started in the Left antecubital site with a Angio cath: 22 gauge. RADIOLOGY DEPARTMENT: CT; Exam(s) Completed: urogram SIGNATURE: RT Jonathon(R) PATIENT NAME: Asia Hawley DATE: June 09, 2022 TIME: 10:34 AM documented in this encounter [facility] 05-29-2022 Miscellaneous Notes Patient has been scheduled on 09/14/2022 for cysto with botox and for 06/09/[address] [place] [address] urogram. Thank you. Tonya Coleman Phone call placed to patient to schedule cystoscopy with possible Botox injection. First available at [place] is 09/14 at 8:30, patient accepts. She declined sooner appt at another location. PSS- please schedule the cystoscopy and assist with scheduling CT Urogram (also ordered). Referral placed. She states her hematuria has resolved since taking antibiotic for UTI and she is starting to feel better. documented in this encounter [facility] 05-26-2022 Miscellaneous Notes Left message for patient regarding urine culture results indicating a UTI. Bactrim sent to pharmacy. German Rivera APRN.PARTY BUS DRIVER documented in this encounter [facility] 05-22-2022 Instructions Lacy Romero RN - 05/22/2022 3:06 PM EST URODYNAMICS HOMEGOING INSTRUCTIONS You have undergone urodynamic studies and you have had catheters inserted into your bladder, through your urethra and into your vagina or rectum. What to expect: You may have a burning sensation during urination and/or blood-tinged urine. These symptoms will normally subside within 24 hours and with increased fluid intake. When to call the physician s office: If you have a fever of 100.4 degrees Fahrenheit or higher If you are unable to urinate If your urine becomes bloody and does not clear with increased fluid intake. If after 24 hours, you have signs of a urinary tract infection. UROGYNECOLOGY PHYSICIAN CONTACT INFORMATION Dr. Chavarria Dr. Zaragoza ([facility]) Dr. Constantino Dr. Cerda Dr. Brumfield Dr. Mcqueen Dr. Naik Dr. Mg Teri Washington, SAMIR Rivera, PARTY BUS DRIVER Lala Romero, PARTY BUS DRIVER Lucina Estrada, PARTY BUS DRIVER After 4:30 pm or on holidays or weekends, call: or . Ask the capacitor pack press operator to page the DENTAL MOLD MAKER ironing worker.' [facility] [place] Patients ONLY: After 4:30 PM or on holidays or weekends, call and you will be connected to the answering service/physician ironing worker. Please DO NOT use MyChart for procedure concerns. documented in this encounter [facility] 05-22-2022 History of Present illness Narrative URODYNAMICS Procedure cancelled by Dr. Mg. Pt with gross hematuria. documented in this encounter [facility] 04-21-2022 Miscellaneous Notes Last office visit: 01/08/21 Future office visit: 05/22/22 Pharmacy calls in requesting the following refill(s): Requested Prescriptions Pending Prescriptions Disp Refills nystatin (MYCOSTATIN) 100,000 unit/mL suspension 600 mL 0 Sig: Take 5 mL by mouth four times daily. Swish and swallow (5 mL) 4 times per day. Eugenia Amaro RN documented in this encounter [facility] 04-17-2022 History of Present illness Narrative . Respiratory Ovid Note Patient name: Asia Hawley PCP: Priyanka Smith MD CC: NSIP HPI: Asia Hawley 62 year old female never smoker with PMH significant for history of thymoma, hypothyroidism, GERD, ILD/NSIP. Original diagnosis dates back to 2019 with laboratory testing suggestive of vasculitis based on positive MPO p-ANCA but chest CT was not consistent with vasculitis. She had peribronchovascular groundglass opacities with central traction bronchiectasis. Her case was presented to the interstitial lung disease conference with question of connective tissue disease associated ILD. 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 Consensus diagnosis was NSIP with suspicion for connective tissue disorder without confirmatory antibody markers. Treated with 10 mg of prednisone and 1000 mg a day of CellCept. She has confirmed esophageal dysmotility. At her AMAN, PFTs are normal but chest CT showed a new 2 x 1.64 cm groundglass opacity in her left upper lobe. She was treated with a burst of prednisone and repeat imaging showed resolution of her groundglass opacity. Due to this, her CellCept was increased to 1500 mg a day. She has been doing well with the increase CellCept. No significant diarrhea, tachycardia, lower extremity edema. Back down to her 10 mg of prednisone. No respiratory issues, specifically chest pain, cough, wheezing or shortness of breath. DATA: Imaging / Diagnostic Studies: DATE OF EXAM: 2022 1:47PM [facility] 0541 - CT CHEST WO IVCON / PROCEDURE REASON: Lung nodule, > 8mm IMPRESSION: 1. Interval resolution of previously noted left upper lobe groundglass opacity. 2. Otherwise, stable CT appearance of the chest with stable bronchiectasis with associated mild reticular opacities. 3. Few stable subcentimeter pulmonary nodules. 4. Stable mild triangular soft tissue in the anterior mediastinum. 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 GERD (gastroesophageal reflux disease) 10/01/2017 Hives Intramural leiomyoma of uterus Malnutrition of moderate degree (HCC) 06/15/2018 Obesity, Class I, BMI 30-34.9 E66.9 09/03/2017 Primary osteoarthritis of first carpometacarpal joint of right hand 08/05/2017 Added automatically from request for surgery [id number] Rectal bleed 09/05/14 Thymoma Resected 07/14/17, 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 Unspecified hypothyroidism ALLERGIES Allergen Reactions Environmental [Othe* ? what=congestion Hay Fever [Seasonal* Zyrtec [Cetirizine * Itching estradiol (ESTRACE) 0.01 % (0.1 mg/gram) vaginal cream Use 1 g vaginally two times a week. nystatin (MYCOSTATIN) 100,000 unit/mL suspension Take 5 mL by mouth four times daily. Swish and swallow (5 mL) 4 times per day. calcium carbonate 600 mg-cholecalciferol 400 units 600 mg-10 mcg (400 unit) tab Take 1 tablet by mouth twice daily. metoclopramide HCl (REGLAN) 5 mg tablet Take 1 tablet by mouth three times daily. predniSONE (DELTASONE) 10 mg tablet Take 1 tablet by mouth once daily. predniSONE (DELTASONE) 20 mg tablet Take 40 mg daily for 5 days then, 30 mg daily for 5 days, then 20 mg for 5 days then back to 10 mg a day levothyroxine (SYNTHROID) 100 mcg tablet Take 1 tablet by mouth once daily. Take on empty stomach aspirin 81 mg chewable tablet Take 1 tablet by mouth once daily. acetaminophen (TYLENOL) 325 mg cap Take by mouth as needed. multivitamins(DAILY MULTIVITAMIN TAB) Take one(1) tablet daily. mycophenolate Mofetil (CELLCEPT) 500 mg tablet Take 2 in am and one in pm Social History Tobacco Use Smoking status: Never Smokeless tobacco: Never Tobacco comments: No one in household smokes. Smoker in childhood home. Vaping Use Vaping Use: Never used Substance Use Topics Alcohol use: Yes Comment: Rarely Drug use: No PMH, Social history, family history and surgical history reviewed and updated in EMR REVIEW OF SYSTEMS: CONSTITUTIONAL: No fevers, chills, nightsweats, unintended weight loss CARDIOVASCULAR: No chest pain, dyspnea, palpitations, edema. PULM: See HPI GI: No dysphagia/odynophagia, nausea or diarrhea, INTEGUMENTARY: No new skin changes or rashes PHYSICAL EXAMINATION: BP 133/72 Pulse 86 Wt 204 lb (92.5kg) SpO2 99% LMP 01/07/2011 Skin: Skin color, texture, turgor normal, no suspicious rashes or lesions. Lungs: Not labored, normal to percussion, no wheezes or crackles Heart: Regular rate and rhythm, no murmurs or gallops Extremities: No edema or clubbing Assessment/Plan: 1. NSIP -She will continue on 1500 mg of CellCept and 10 mg of prednisone. If she continues to do well with recommend decreasing her prednisone to 5 mg a day -Repeat CT chest 6 months 2. High risk medication use -Laboratory testing pending on higher dose CellCept -Monitor for superimposed infection Rowan Temple MD Respiratory Ovid documented in this encounter [facility] 2022 History of Present illness Narrative Radiology Service Progress Note PATIENT NAME: Asia Hawley DATE OF SERVICE: 2022 TIME: 4:09 PM PATIENT IDENTITY VERIFICATION COMPLETED USING TWO (2) IDENTIFIERS: Name and Date of confirmed by patient verbally. FALL SCREENING: Has the patient had 2 falls in the last year or 1 fall with injury or currently using an Ambulatory Assistive Device (Walker, Cane, Wheelchair, Crutches, etc.)? No PATIENT GENDER DATA: Female. status: : No status: NO. PATIENT RELEVANT IMPLANT DATA REVIEWED: Yes RADIOLOGY DEPARTMENT: CT; Exam(s) Completed: Chest PERIPHERAL IV DATA: Not applicable SIGNED BY: RT Jonathon(R) 2022 4:09 PM documented in this encounter [facility] 04-03-2022 Miscellaneous Notes Patient notified of results, verbalizes understanding of instructions. Mariam Woods LPN Please inform patient that urine culture was negative. Can discontinue antibiotic. Follow up with primary care provider as patient had blood in urine. documented in this encounter [facility] 04-02-2022 History of Present illness Narrative CC: Patient presents with: Urinary Frequency: With burning x2.5 weeks, already previously treated with Bactrim 03/17 HPI Asia Hawley is a 61 year old female who presents with complaint of possible UTI. These symptoms have been present for since feb. Associated symptoms: burning and frequency Denies: backpain, pressure, fever, chills, sweats, abdominal pain, flank pain, abnormal vaginal discharge, and vaginal itching Treatments: had 3 days of bactrim The ROS was otherwise negative. PMH, Medications, labs, allergies, and recent past visits with PCP were reviewed and updated as able. 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 GERD (gastroesophageal reflux disease) 10/01/2017 Hives Intramural leiomyoma of uterus Malnutrition of moderate degree (HCC) 06/15/2018 Obesity, Class I, BMI 30-34.9 E66.9 09/03/2017 Primary osteoarthritis of first carpometacarpal joint of right hand 08/05/2017 Added automatically from request for surgery [id number] Rectal bleed 09/05/14 Thymoma Resected 07/14/17, 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 Unspecified hypothyroidism PAST SURGICAL HISTORY Procedure Laterality Date ARTHRP INTERPOS INTERCARPAL/METACARPAL JOINTS Right 10/13/2017 Right thumb CMC arthroplasty with LRTI CAUTERY CERVIX CRYOCAUTERY INITIAL/REPEAT 1999 CHOLECYSTECTOMY Cholecystectomy COLONOSCOPY FLX DX W/COLLJ SPEC WHEN PFRMD 04/10/09 COLONOSCOPY FLX DX W/COLLJ SPEC WHEN PFRMD 09/05/14 Repeat 2024 COLONOSCOPY FLX DX W/COLLJ SPEC WHEN PFRMD 12/22/2017 Colonoscopy COLPOSCOPY CERVIX UPPER/ADJACENT VAGINA Multiple starting 1995 Colposcopy LAPAROSCOPY COLECTOMY PARTIAL W/ANASTOMOSIS 12/07/2009 diverticulitis LIG/TRNSXJ FLP TUBE ABDL/VAG APPR UNI/BI Tubal ligation LX PARTIAL COLECTOMY 12/23/2017 [facility] lap lysis of adhesions, left oopherectomy, right salpinoopherectomy, left salpingectomy, redo lap sigmoid colectomy w/ressection, lap mobilization of splenic flexure, lap appendectomy PAST SURGICAL HISTORY OF 10/2008 T9-L1 fusion, Dr. Lemon PAST SURGICAL HISTORY OF 10/24/2009 Removed T9-L1, 2 rods and 8 screws, Dr Lemon PAST SURGICAL HISTORY OF 11/2018 Hysteroscopy with D&C and Polypectomy with [employer] Truclear device PICC LINE INSERT/CONSULT 07/11/2018 THYMECTOMY PRTL/TOT TRANSCERVICAL APPR SPX 07/14/2017 WEDGE RESECT LUNG Right 03/25/2020 Right VATS wedge resection of upper, middle and lower lung for pulmonary infiltrates ALLERGIES Environmental [Other], Hay Fever [Seasonal Allergies], and Zyrtec [Cetirizine Hcl] MEDICATIONS cephALEXin (KEFLEX) 500 mg capsule Take 1 capsule by mouth twice daily for 7 days. estradiol (ESTRACE) 0.01 % (0.1 mg/gram) vaginal cream Use 1 g vaginally two times a week. nystatin (MYCOSTATIN) 100,000 unit/mL suspension Take 5 mL by mouth four times daily. Swish and swallow (5 mL) 4 times per day. calcium carbonate 600 mg-cholecalciferol 400 units 600 mg-10 mcg (400 unit) tab Take 1 tablet by mouth twice daily. metoclopramide HCl (REGLAN) 5 mg tablet Take 1 tablet by mouth three times daily. mycophenolate Mofetil (CELLCEPT) 500 mg tablet Take 1 tablet by mouth twice daily. predniSONE (DELTASONE) 10 mg tablet Take 1 tablet by mouth once daily. predniSONE (DELTASONE) 20 mg tablet Take 40 mg daily for 5 days then, 30 mg daily for 5 days, then 20 mg for 5 days then back to 10 mg a day MYRBETRIQ 50 mg Tb24 Take 1 tablet by mouth once daily. levothyroxine (SYNTHROID) 100 mcg tablet Take 1 tablet by mouth once daily. Take on empty stomach aspirin 81 mg chewable tablet Take 1 tablet by mouth once daily. acetaminophen (TYLENOL) 325 mg cap Take by mouth as needed. multivitamins(DAILY MULTIVITAMIN TAB) Take one(1) tablet daily. FAMILY HISTORY Problem Relation Age of Onset Hypertension Mother Thyroid Mother Heart Father Hypertension Father COPD Father Smoker. Heart Maternal Grandmother Stroke Maternal Grandmother Cancer Maternal Grandmother COLON Cancer Paternal Grandmother STOMACH Social History Tobacco Use Smoking status: Never Smokeless tobacco: Never Tobacco comments: No one in household smokes. Smoker in childhood home. Vaping Use Vaping Use: Never used Substance Use Topics Alcohol use: Yes Comment: Rarely Drug use: No ASSESSMENT/PLAN: 1. Urinary frequency - ICD9: 788.41, ICD10: R35.0 acute - Send urine for culture - Begin treatment with keflex for 7 days - UA DIP, URINE (POC) - URINE CULTURE Prescription instructions reviewed with patient as applicable. Potential red flag symptoms discussed with the patient. Reviewed appropriate action plan to take if red flag symptoms occur. Patient agreeable to treatment plan. She will follow up with urology to make sure everything is healing okay. Genie Olson APRN.SAMIR documented in this encounter [facility] 04-01-2022 Miscellaneous Notes Last annual with CP 11/26/21. Requested Prescriptions Pending Prescriptions Disp Refills estradiol (ESTRACE) 0.01 % (0.1 mg/gram) vaginal cream 42.5 g 1 Sig: Use 1 g vaginally two times a week. RX INSTRUCTIONS: Mychart request. Kiki Patel RN documented in this encounter [facility] 03-30-2022 Miscellaneous Notes Patient has been scheduled on 05/22/2022 at 2:30p for UDS and 3:30p for follow up with Dr. Mg. Thank you. Tonya Coleman Patient ID'd by name and . Discussed order for UDS. Patient accepted appointment on 05/22/22 at 2:30 at [place]. PSS- please schedule documented in this encounter [facility] 03-23-2022 Miscellaneous Notes Patient with urine culture positive for >=100,000 CFU/ml Escherichia coli and 50,000-<100,000 CFU/ml Proteus mirabilis, susceptible to bactrim. Medications and allergies reviewed. Treatment sent to pharmacy. The following approved medication requests have been transmitted electronically. Requested Prescriptions Signed Prescriptions Disp Refills sulfamethoxazole-trimethoprim (BACTRIM DS) 800-160 mg per tablet 6 tablet 0 Sig: Take 1 tablet by mouth twice daily for 3 days. Authorizing Provider: TARIQ BROOKS APRN.CNP documented in this encounter [facility] 03-18-2022 Miscellaneous Notes Pt is scheduled and placed on wait list Eugenia Amaro RN Patient wants to make follow up but there is nothing available thru the end of the year. documented in this encounter [facility] 03-16-2022 Instructions John Mg MD - 03/16/2022 11:34 AM EDT Thank you for seeing me in the office! My office will call you to schedule the urodynamics Increase vaginal estrogen cream to twice weekly URODYNAMIC STUDY A Urodynamic Study is a series of tests that evaluate the function of the lower urinary tract (bladder and sphincter). Bladder pressure, urine flow and muscle activity are monitored as the bladder fills and empties. These measurements are made by a small catheter placed through the urethra into your bladder, and a catheter in your rectum. Urodynamic testing is performed to establish or confirm a clinical diagnosis, to assess the severity of a problem, and/or to assess response to a treatment (i.e. medication, surgery, biofeedback). URODYNAMIC INSTRUCTIONS BEFORE YOUR TEST: 1. Discontinue any bladder medications, except for antibiotics, 5 days prior to your test. In some cases, your doctor will want to perform the tests while you are taking your bladder and prostate medications (usually this is a second or follow-up study). If you are in doubt, please call your doctor and ask. Continue taking all other medications which have been prescribed for you by other physicians. 2. EAT and DRINK as you normally would. We strongly encourage you to eat prior to your evaluation. DO NOT drink extra fluid - just continue with your normal routine. 3. If you become ill or have an elevated temperature, please call and reschedule the test. You should be in your usual state of health when you have Urodynamic testing. 4. You will be asked to urinate in a special toilet at the beginning of the test, so please try to come with a normally full bladder. Again, do not drink extra fluids. 5. The testing takes approximately 2 hours. Please plan accordingly. 6. You will be able to drive yourself home after the exam is over. AFTER YOUR TEST: It is common to experience slight burning the first few times you urinate after the test. Infrequently, the urine is blood tinged. These are both due to minor trauma from the catheter and resolve quickly. There is no reason to be alarmed. If you develop a fever of 101 degrees or higher, call the clinic during business hours. UROGYNECOLOGY PHYSICIAN CONTACT INFORMATION Dr. John Mg ([facility]) Dr. John Mg ([facility]) Dr. Viji Zaragoza ([facility]) Dr. Ana Cerda Dr. Chelita Ramirez Dr. Shannen Mcqueen Dr. Yelena Naik [phone] Dr. John Mg Teri Washington, SAMIR Romero, SAMIR Estrada CNP After 4:30 pm or on holidays or weekends, call: or . Ask the capacitor pack press operator to page the DENTAL MOLD MAKER ironing worker.' Please DO NOT use MyChart for post-surgery concerns. documented in this encounter [facility] 03-16-2022 History of Present illness Narrative Images from the original note were not included. Female Pelvic Medicine & Reconstructive Surgery Consult CHIEF COMPLAINT: Asia Hawley is a 61 year old ( x2) female s/p colon resection for diverticulitis and colon cancer who presents for consultation requested by Muriel Lopez CNM for an opinion regarding cystocele, urinary urgency, urinary frequency. HISTORY OF PRESENT ILLNESS: Pt has history of overactive bladder, nocturia, urinarry urgency, urinary frequency and urinary urge incontinence since 2019 She has tried reducing caffeine and bladder irritants. She has already tried Ditropan XL 10mg with no improvement in symptoms. She was then switched to Myrbetriq 50mg by Dr. Mathew Yang. Pt has been seeing Dr. Mathew Yang for urinary issues. Pt also reports frequent UTIs which cause urgency, urethral burning. These have improved since starting vaginal estrogen cream twice weekly. UROGYNECOLOGIC REVIEW OF SYSTEMS: Vaginal bulge: denies Daily Fluids: Coffee, Caffeine: 2 cups of coffee (in the AM) Water: 1 bottle of water Other: 1 cup of milk Frequency: DTF every 1-2 hours Nocturia: NTF every 2 hours Urinary urgency: reports Urge incontinence: occasional Stress incontinence: denies Pads: denies Pain/Discomfort: denies Voiding symptoms: denies hesitancy, changes in stream or sensation of incomplete emptying, splinting to urinate Urinary tract infections or Pyelonephritis: see HPI Stones: denies Hematuria: denies Malignancy or pediatric voiding dysfunction: denies Abnormal vaginal bleeding: denies Abnormal vaginal discharge: denies Vaginal dryness: reports and using vaginal estrogen 1x per week Bowel symptoms: BM every day, + constipation (6 prunes at night), denies diarrhea, fecal incontinence, fecal urgency, stool trapping symptoms, splinting to have a BM, blood in stool, Last colonoscopy (2017): has history of colon cancer Sexual activity: currently sexually active, has some vaginal dryness and uses lubrication 05/20/21 11/05/21 Culture >=100,000 CFU/ml Escherichia coli (A) >=100,000 CFU/ml Escherichia coli (A) Some values recorded on this date have been omitted. 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 She has no history of an abnormal mammogram LMP: Patient's last menstrual period was 01/07/2011.; Menopause 48: Menstrual history: NA; Deliveries: History of third or fourth degree laceration: No Weight of largest baby: 8lbs 13oz Sexual function Sexually active: Sexual dysfunction: some vaginal dryness PFDI-20 Do you: Usually experience pressure in the lower abdomen? Yes, somewhat bothersome (2) Usually experience heaviness or dullness in the pelvic area? Yes, not at all bothersome (1) Usually have a bulge or something falling out that you can see or feel in your vaginal area? No (0) Ever have to push on the vagina or around the rectum to have or complete a bowel movement? Yes, not at all bothersome (1) Usually experience a feeling of incomplete bladder emptying? Yes, moderately bothersome (3) Ever have to push up on a bulge in the vaginal area with your fingers to start or complete urination? No (0) Feel you need to strain too hard to have a bowel movement? No (0) Feel you have not completely emptied your bowels at the end of a bowel movement? No (0) Usually lose stool beyond your control if your stool is well formed? No (0) Usually lose stool beyond your control if your stool is loose? No (0) Usually lose gas from the rectum beyond your control? No (0) Usually have pain when you pass your stool? No (0) Experience a strong sense of urgency and have to sue to the bathroom to have a bowel movement? Yes, not at all bothersome (1) Does part of your bowel ever pass through the rectum and bulge outside during or after a bowel movement? No (0) Usually experience frequent urination? Yes, quite a bit bothersome (4) Usually experience urine leakage associated with a feeling of urgency, that is, a strong sensation of needing to go to the bathroom? Yes, moderately bothersome (3) Usually experience urine leakage related to coughing, sneezing or laughing? Yes, not at all bothersome (1) Usually experience small amounts of urine leakage (that is, drops)? Yes, somewhat bothersome (2) Usually experience difficulty emptying your bladder? No (0) Usually experience pain or discomfort in the lower abdomen or genital region? Yes, somewhat bothersome (2) Do you have pain associated with your prolapse (not pressure or fullness) No PFIQ-7 How do symptoms or conditions relating to the following usually affect your: Bladder or urine Bowel or rectum Vagina or pelvis 1. Ability to do machine stonecutter (cooking, housecleaning, laundry) somewhat Not at all Not at all 2. Ability to do physical activities such as walking, swimming or other exercise somewhat Not at all Not at all 3. Entertainment activities such as going to a movie or concert? somewhat Not at all Not at all 4. Ability to travel by car or bus for a distance greater than 30 minutes away from home? somewhat Not at all Not at all 5. Participating in social activities outside your home? somewhat Not at all Not at all 6. Emotional health (nervousness, depression etc). Not at all Not at all Not at all 7. Feeling frustrated? somewhat Not at all Not at all PAST SURGICAL HISTORY Procedure Laterality Date ARTHRP INTERPOS INTERCARPAL/METACARPAL JOINTS Right 10/13/2017 Right thumb CMC arthroplasty with LRTI CAUTERY CERVIX CRYOCAUTERY INITIAL/REPEAT 1999 CHOLECYSTECTOMY Cholecystectomy COLONOSCOPY FLX DX W/COLLJ SPEC WHEN PFRMD 04/10/09 COLONOSCOPY FLX DX W/COLLJ SPEC WHEN PFRMD 09/05/14 Repeat 2024 COLONOSCOPY FLX DX W/COLLJ SPEC WHEN PFRMD 12/22/2017 Colonoscopy COLPOSCOPY CERVIX UPPER/ADJACENT VAGINA Multiple starting 1995 Colposcopy LAPAROSCOPY COLECTOMY PARTIAL W/ANASTOMOSIS 12/07/2009 diverticulitis LIG/TRNSXJ FLP TUBE ABDL/VAG APPR UNI/BI Tubal ligation LX PARTIAL COLECTOMY 12/23/2017 [facility] lap lysis of adhesions, left oopherectomy, right salpinoopherectomy, left salpingectomy, redo lap sigmoid colectomy w/ressection, lap mobilization of splenic flexure, lap appendectomy PAST SURGICAL HISTORY OF 10/2008 T9-L1 fusion, Dr. 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 Heart Maternal Grandmother Stroke Maternal Grandmother Cancer Maternal Grandmother COLON Cancer Paternal Grandmother STOMACH Current Outpatient Medications Medication Sig nystatin (MYCOSTATIN) 100,000 unit/mL suspension Take 5 mL by mouth four times daily. Swish and swallow (5 mL) 4 times per day. calcium carbonate 600 mg-cholecalciferol 400 units 600 mg-10 mcg (400 unit) tab Take 1 tablet by mouth twice daily. metoclopramide HCl (REGLAN) 5 mg tablet Take 1 tablet by mouth three times daily. mycophenolate Mofetil (CELLCEPT) 500 mg tablet Take 1 tablet by mouth twice daily. predniSONE (DELTASONE) 10 mg tablet Take 1 tablet by mouth once daily. MYRBETRIQ 50 mg Tb24 Take 1 tablet by mouth once daily. estradiol (ESTRACE) 0.01 % (0.1 mg/gram) vaginal cream Use 3 g vaginally once daily. levothyroxine (SYNTHROID) 100 mcg tablet Take 1 tablet by mouth once daily. Take on empty stomach aspirin 81 mg chewable tablet Take 1 tablet by mouth once daily. acetaminophen (TYLENOL) 325 mg cap Take by mouth as needed. multivitamins(DAILY MULTIVITAMIN TAB) Take one(1) tablet daily. sulfamethoxazole-trimethoprim (BACTRIM DS) 800-160 mg per tablet Take 1 tablet by mouth twice daily for 3 days. predniSONE (DELTASONE) 20 mg tablet Take 40 mg daily for 5 days then, 30 mg daily for 5 days, then 20 mg for 5 days then back to 10 mg a day No current facility-administered medications for this visit. ALLERGIES Allergen Reactions Environmental [Othe* ? what=congestion Hay Fever [Seasonal* Zyrtec [Cetirizine * Itching SOCIAL HISTORY Social History Tobacco Use Smoking status: Never Smokeless tobacco: Never Tobacco comments: No one in household smokes. Smoker in childhood home. Vaping Use Vaping Use: Never used Substance Use Topics Alcohol use: Yes Comment: Rarely Drug use: No Occupation: Retired Marital Status: REVIEW OF SYSTEMS General: Negative for unintentional weight loss, fever, chills, or weakness. Skin: Negative for rash or itching. Psychiatric: Negative for depression. Reports normal stress. Neurologic: Negative for new headache or syncope. Endocrine: Negative for sweating, cold intolerance or heat intolerance. Cardiovascular: Negative for recent chest pain, chest pressure or chest discomfort. Hematologic/Lymphatic: Negative for easy bruising or excessive bleeding. Respiratory: Negative for wheezing, shortness of breath or persistent cough. Gastrointestinal: Negative for persistent abdominal pain. Negative for anorexia, persistent nausea and/or vomiting. Musculoskeletal: back pain I have confirmed and edited as necessary, the PFSH and ROS obtained by others. John Mg MD Utilities Operator offered: Patient declines. OBJECTIVE: BP 108/74 Wt 202 lb (91.6kg) LMP 01/07/2011 Physical Exam Constitutional: BMI - Body mass index is 33.1 kg/m . General Appearance: Well appearing, alert, in no acute distress, well-hydrated, well nourished. Skin: Skin color, texture, turgor normal, no suspicious rashes or lesions Lungs: Not examined Heart: Not examined Breasts: Deferred Abdomen: Abdomen soft, non-tender Pelvic: External Genitalia: No lesions or other abnormalities, agglutination of labia minora and labia majora, some pale areas around vaginal opening and some adhesions around clitoris Vagina: Ant Wall - Normal support ; Post Wall - Normal support Cervix / [place] - Normal support POP-Q: Prolapse Noted: No Vaginal epithelium: Atrophic Cervix: Normal Urethra: Normal, Supine cough stress test negative Bimanual: No tenderness, No masses Rectovaginal: No tenderness, No masses, Rectocele Anal Sphincter: Resting Tone: Normal Squeeze Strength: 2+ out of 5 Sphincter Defect: no Levator Ani Contraction: 2+ Levator Ani Tone: normal Levator Ani Tenderness: No Saddle Sensory Exam (S2-4): normal UA results: abnormal Bladder scan: Nurse performed and PVR 0 mL IMPRESSION: Asia Hawley is a 61 year old ( x2) female s/p colon resection for diverticulitis and colon cancer with Overactive Bladder, Nocturia, Genitourinary Syndrome of Menopause and possible Lichen Sclerosis, Recurrent UTIs and Abnormal Udip. OAB and/or Urge Urinary Incontinence: We discussed the potential etiologies, work up and therapies for overactive bladder. We discussed the role of a voiding diary. We discussed first line management of OAB including lifestyle modifications - e.g. Timed voiding, Bladder training, Pelvic floor muscle training, Quick flicks, avoidance of bladder irritants, reducing stress/anxiety, avoidance/management of constipation, limiting fluid intake 3 hours prior to bedtime, and ensuring good quality sleep (treat sleep disorders, practice good sleep hygiene) to help prevent nocturia. We next discussed OAB medications as second line treatment including anticholingerics and beta 3 agonist. We discussed anticholinergic side effects including dry eye, dry mouth, constipation, urinary retention and sometimes confusion in elderly patients. We also discussed the side effects of Mirabegron (Beta 3 agonist), including elevated blood pressure. We finally discussed third line therapies (Botox, InterStim (SNS), Percutaneous Tibial Nerve Stimulation (PTNS), including the RBA of each. We discussed intravesical Botox therapy. She understands that the risk include hematuria, UTI and incomplete emptying requiring CIC (~6%) in the large clinical trials. I explained what catheterization entails and the potential duration (until the Botox wears off). She also understands that She will need re-injection Approximately every 6-12 months. We also discussed neuromodulation. InterStim is used to manage both OAB with leak and fecal incontinence. Discussed that Interstim is now MRI-compatible although she would need to turn off device when she had MRI. Also discussed the need for two anesthetic procedures in the OR. Finally we discussed PTNS, which would require 12 weekly, 30 minute treatments. Finally we discussed PTNS, which would require 12 weekly, 30 minute treatments. The risks, benefits and alternatives, including site pain, treatment failure , multiple office visits were discussed. Pt has failed life style changes and OAB meds and would like to proceed with third line therapies. We will plan for urodynamics and then intraderusor Botox injections. 2. Nocturia We discussed potential causes including: Behavioral patterns, Diuretic medications, Caffeine, Alcohol, Excessive fluids before bedtime, Diminished nocturnal bladder capacity, Lower extremity edema, Fluid redistribution, Overactive Bladder, Bladder Outlet Obstruction, Sleeping disorders such as obstructive sleep apnea (breathing is interrupted or stops many times during sleep), and Insomnia (Some people who have poor sleep and awaken frequently will go to the bathroom whenever they awaken. Typically in these cases, it is not the need to void that awakens them.) We discussed evaluation of nocturia, including a voiding diary to evaluate for nocturnal polyuria. We also discussed management of nocturia including treatment of any sleep disorders (i.e. CPAP machine), behavioral changes, including cutting back on bladder irritants (i.e. caffeine, coffee, tea, citrus, alcohol, tobacco) in the evening, refraining from drinking fluids overnight or within 3 hours of bedtime, lower extremity elevation and/or compression hose to reduce lower extremity edema, afternoon naps (can help reduce fluid retention by allowing fluid to be reabsorbed), improving sleep quality/treating insomnia (reduction of light, noise +/- judicious use of sleep aids, melatonin) and medications (bladder relaxants - anticholingergics, beta 3 agonists) and Desmopressin/DDAVP to reduce urine production volumes. We also discussed Botox, PTNS and SNS as potential advanced therapies. Pt would like to try Botox 3. Recurrent UTIs: Today, we discussed diagnosis of recurrent UTIs: culture proven UTIs, 2 in six months or 3 in 12 months. - Discussed risk factors for recurrent UTI: female urethral anatomy, post-menopausal status, sexual intercourse, stress, travel. - Discussed important strategies for management of recurrent UTIs: -- Treatment / care with only one provider -- Never take antibiotics without first getting a urine culture -- Recommend standing urine culture order to facilitate submitting urine cultures and avoid barrier of needing to obtain an office appointment -- Discussed the importance of remaining adequately hydrated with water and increase fluid intake to 1.5L/day -- Discussed importance of not holding urine, void at least every 3-4 hours -- Discussed importance of avoiding constipation, spermicides and bladder irritants, including caffeine, spicy foods, carbonated beverages, alcohol, wine, tobacco -- Discussed preventive measures and their efficacy: cranberry extract pills (36 mg PAC), probiotics, estrogen cream, Hiprex/Vitamin C, D-Mannose powder (2 grams daily) and prophylactic antibiotics. I explained that there is good evidence for vaginal estrogen and prophylactic antibiotics however, the evidence is mixed for the other options. However, I have patients that have experienced great success with each of these prevention strategies and I believe they are worth trying. Pt will continue to use vaginal estrogen cream and increase to twice weekly. 4. Genitourinary Syndrome of Menopause/Possible Lichen Sclerosis I discussed options for Vaginal Atrophy management reviewed including vaginal moisturizers, lubricants, and vaginal estrogen therapy I explained that consistent use of vaginal estrogen treats vaginal atrophy and has the potentially treat any associated OAB symptoms, dysuria, vaginal irritation, dyspareunia, in addition to helping prevent UTIs. The risks, benefits and alternatives (e.g. Hyalogyn) were discussed. Pt is currently on vaginal estrogen cream. We discussed that if vagina irritation worsens, then we could proceed with vulvar biopsy. 5. Abnormal Udip Moderate leukocytes and small blood so will send urine culture PLAN: Will schedule urodynamics and then Botox after UDS Continue vaginal estrogen cream twice weekly. Send urine culture Medical Decision Making: Problems: Moderate: 2+ stable chronic illnesses Data: Unique test result(s) reviewed: 2 Unique test(s) ordered: 2 Risk: Low: Low risk from testing/treatment Medical Decision Making Level: 4 - Moderate My final recommendations will be communicated back to the requesting physician by way of shared Medical record or letter via US mail. John Mg MD documented in this encounter [facility] 03-04-2022 Miscellaneous Notes Last office visit: 01/08/21 Per last refill request on 01/06/22: ok to use as needed She responds to treatment but after about 2 months sx's return Future office visit: not scheduled Pharmacy calls in requesting the following refill(s): Requested Prescriptions Pending Prescriptions Disp Refills nystatin (MYCOSTATIN) 100,000 unit/mL suspension 600 mL 0 Sig: Take 5 mL by mouth four times daily. Swish and swallow (5 mL) 4 times per day. Eugenia Amaro RN documented in this encounter [facility] 02-23-2022 History of Present illness Narrative [facility] Department of Thoracic Surgery TELEPHONE VISIT (audio only) PROGRESS NOTE This is a telephone encounter initiated for an established patient. The patient, parent or guardian is not originating from a related Evaluation & Management service provided within the previous 7 days nor leading to an Evaluation & Management service or procedure within the next 24 hours or soonest available appointment. Asia Hawley has consented to this telephone encounter. Persons Present: patient Total Time Spent: 11-20 minutes Cecy Vigil APRN.CNP [facility] - OUTPATIENT THORACIC SURGERY CLINIC NOTE PT NAME: Asia Hawley CLINIC NO: [id number] THORACIC SURGEON: Bar Ferrer M.D. DATE OF SERVICE: 02/23/2022 PRINCIPAL DX: Pulmonary infiltrate SURGICAL HX: 03/25/2020: Right VATS biopsy of upper, middle and lower lung Surgical Pathology: FINAL DIAGNOSIS Right lung, lower lobe (A), middle lobe (B), and upper lobe (C), wedge biopsies - Chronic interstitial pneumonitis with non-specific interstitial pneumonia and organizing pneumonia patterns (see comment). KATELYN/rocio 03/28/2020 REASON FOR VISIT: CT Surveillance HPI: Asia Hawley is a 61 year old femal who is known to us from a prior left robotic excision of 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 in June 2018. Since that time, she has had problems with weight loss as well as development of an interstitial process, which has ultimately led to a request for a VATS lung biopsy with Dr Bar Ferrer. Discharged 03/26/2020. REVIEW OF SYSTEMS PAIN ASSESSMENT: Denies pain GENERAL: No weight loss, malaise or fevers RESPIRATORY: Cough; dry CARDIOVASCULAR: Negative for chest pain GI: No heartburn or reflux symptoms IMAGING/TESTS: CT Chest 02/12/2022: IMPRESSION: 1. There is a new groundglass opacity in the medial left upper lobe. Short-term follow-up is recommended to assess for any further change in size. 2. Unchanged reticular opacities in a predominantly peripheral and lower lung distribution which can be seen with nonspecific interstitial pneumonitis 3. Stable soft tissue density material in the anterior mediastinum INTERVAL HISTORY: Ms. Hawley returns following a CT scan of her chest. Denies any progressive dyspnea, hemoptysis, wheezing, bone pain, weight loss or smoking. Does have a chronic non-productive cough. CT Chest shows a new groundglass opacity in the medial left upper lobe, which is being monitored by pulmonary. She may return as needed. Pulmonary to manage. Patients states understanding and all questions were answered to satisfaction; will call if new or worsening symptoms occur or if any additional questions arise. IMPRESSION: 61 year old female s/p Right VATS biopsy of upper, middle and lower lung with Dr Bar Ferrer for chronic interstitial pneumonitis.ROSA. PLAN: - Return as needed - Pulmonary to manage, Dr. Quinton Vigil APRN.PARTY BUS DRIVER documented in this encounter [facility] 02-16-2022 Instructions Rowan Temple MD - 02/16/2022 10:19 AM EDT BONE MINERAL DENSITY PATIENT INSTRUCTIONS ======= Bone mineral density testing measures the amount of calcium in certain parts of your bones. This information determines how strong your bones are. The test is used to detect osteoporosis, a disease in which the bone's mineral content and density are low, increasing a person's risk of fractures. The lumbar spine (lower back) and the hip are the skeletal sites usually examined. For the test, remember that: 1. You cannot take this test if you are . 2. Eat a normal diet on the day of the test. 3. Take your medications as you normally would. 4. DO NOT take calcium supplements (such as Tums) for 24 hours before the test. 5. On the day of the test, leave valuables (jewelry or credit cards) at home. 6. The test should be performed prior to oral, rectal or IV contrast studies, or at least 7 days after any of these studies. For the test, you may be asked to wear a hospital gown. You will lie on your back, on a padded table, in a comfortable position. Generally, you can resume your usual activities immediately. documented in this encounter [facility] 02-16-2022 History of Present illness Narrative Images from the original note were not included. . Respiratory [facility] Note Patient name: Asia Hawley PCP: Priyanka Smith MD CC: ILD HPI: Asia Hawley 61 year old obese female never smoker with PMH significant for GERD, h/o thymoma, hyothyroidism, ILD/NSIP. Originally diagnosed in 2019. At that time she had lab testing that was suggestive of vasculitis (MPO p-ANCA) but her chest CT was not consistent (peribronchovascular GGO and central traction bronchiectasis). Her case was presented at the [place] ILD conference and the question of CTD associated ILD was entertained. She had a VATS lung biopsy with pathology showing cellular NSIP, no honeycombing or UIP. ILD Conference consensus NSIP suspicion for CTD without confirmatory antibody markers. Current treatment prednisone 10 mg and Cellcept 500 mg bid. She had confirmed esophageal dysmotility on manometry bringing into question aspiration as part of her chest imaging abnormalities. AMAN with Dr. Cuenca in July, no progression of her disease. CBC, liver panel have been stable on prednisone and Cellcept. Today she states she has been coughing more. Similar to her cough when she was first diagnosed. Cough is dry, does not interfere with her sleep. No choking, post prandial cough, or supine cough. No associated SOB, chest tightness. Denies GERD. No recent URI, fevers or chills. No night sweats. No ill contacts. DATA: PFT 07/2021: FVC 3.29 L 109% FEV1 2.76 L 116% Ratio 84% Labs: Component Ref Range & Units 2 mo ago (12/04/21) WBC 3.70 - 11.00 k/uL 11.17 High RBC 3.90 - 5.20 m/uL 4.98 Hemoglobin 11.5 - 15.5 g/dL 13.9 Hematocrit 36.0 - 46.0 % 43.8 MCV 80.0 - 100.0 fL 88.0 MCH 26.0 - 34.0 pg 27.9 MCHC 30.5 - 36.0 g/dL 31.7 RDW-CV 11.5 - 15.0 % 13.5 Platelet Count 150 - 400 k/uL 302 MPV 9.0 - 12.7 fL 11.1 Neut% % 56.9 Abs Neut 1.45 - 7.50 k/uL 6.36 Lymph% % 33.4 Abs Lymph 1.00 - 4.00 k/uL 3.73 [place]% % 8.0 Abs [place] <0.87 k/uL 0.89 High Eosin% % 0.0 Abs Eosin <0.46 k/uL <0.03 Baso% % 0.2 Abs Baso <0.11 k/uL <0.03 Immature Gran % % 1.5 Abs Immature Gran <0.10 k/uL 0.17 High NRBC /100 WBC 0.0 Absolute nRBC <0.01 k/uL <0.01 Diff Type Auto Component Ref Range & Units 2 mo ago (12/04/21) Protein, Total 6.3 - 8.0 g/dL 6.8 Albumin 3.9 - 4.9 g/dL 4.2 Calcium, Total 8.5 - 10.2 mg/dL 9.1 Bilirubin, Total 0.2 - 1.3 mg/dL 0.5 Alkaline Phosphatase 34 - 123 U/L 82 AST 13 - 35 U/L 20 ALT 7 - 38 U/L 11 Glucose 74 - 99 mg/dL 80 Imaging / Diagnostic Studies: DATE OF EXAM: Feb 12 2022 8:17AM [facility] [id number] - CT CHEST WO IVCON / EXAMINATION: CHEST CT WITHOUT CONTRAST CLINICAL HISTORY: Interstitial pulmonary disease (HCC) compare to 07/2021 and before. Comparison: CT chest 04/07/2021, 08/08/2020 and 05/03/2020 RESULT: Limitations: None. Lines, tubes, and devices: None. Lung parenchyma and airways: There is a new 2 x 1.4 cm groundglass opacity in the medial left upper lobe (14:62). Stable appearance of a few scattered subcentimeter pulmonary nodules. For example there is a 5 mm nodule adjacent to some scarring in the anterior medial right upper lobe (14:97). Again noted are some reticular opacities with associated groundglass opacities and traction bronchiectasis in a predominantly peripheral and lower lung distribution. Multifocal areas of air trapping are noted on expiratory images. Postoperative changes from a wedge resection in the posterior right upper lobe. No acute airspace disease. Central airways are patent. Pleural space: No pleural effusion. No pleural thickening. Lower neck, lymph nodes, and mediastinum: Unchanged right thyroid nodule. Unchanged triangular soft tissue density material in the anterior mediastinum (13:119). No lymphadenopathy in the supraclavicular, axillary, mediastinal or hilar regions. Heart, pericardium, and thoracic vessels: The thoracic aorta and main pulmonary artery are normal in caliber. The cardiac chambers are normal in size. No coronary artery atherosclerotic calcifications are noted, although the study is not optimized for coronary assessment. No pericardial effusion or thickening. Bones and soft tissues: No destructive bone lesion. Unchanged compression deformity of the superior endplate of T11. Chest wall is unremarkable. Upper abdomen: No acute abnormality in the imaged upper abdomen. 4 mm calculus in upper pole of the left kidney. Automotive Brake Technician (topogram) images: No additional findings. IMPRESSION: 1. There is a new groundglass opacity in the medial left upper lobe. Short-term follow-up is recommended to assess for any further change in size. 2. Unchanged reticular opacities in a predominantly peripheral and lower lung distribution which can be seen with nonspecific interstitial pneumonitis 3. 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 what=congestion Hay Fever [Seasonal* Zyrtec [Cetirizine * Itching nystatin (MYCOSTATIN) 100,000 unit/mL suspension Take 5 mL by mouth four times daily. Swish and swallow (5 mL) 4 times per day. predniSONE (DELTASONE) 10 mg tablet Take 1 tablet by mouth once daily. MYRBETRIQ 50 mg Tb24 Take 1 tablet by mouth once daily. estradiol (ESTRACE) 0.01 % (0.1 mg/gram) vaginal cream Use 3 g vaginally once daily. mycophenolate Mofetil (CELLCEPT) 500 mg tablet Take 1 tablet by mouth twice daily. metoclopramide HCl (REGLAN) 5 mg tablet Take 1 tablet by mouth three times daily. levothyroxine (SYNTHROID) 100 mcg tablet Take 1 tablet by mouth once daily. Take on empty stomach aspirin 81 mg chewable tablet Take 1 tablet by mouth once daily. acetaminophen (TYLENOL) 325 mg cap Take by mouth as needed. multivitamins(DAILY MULTIVITAMIN TAB) Take one(1) tablet daily. Social History Tobacco Use Smoking status: Never Smokeless tobacco: Never Tobacco comments: No one in household smokes. Smoker in childhood home. Vaping Use Vaping Use: Never used Substance Use Topics Alcohol use: Yes Comment: Rarely Drug use: No No exposure history, no pets FAMILY HISTORY Problem Relation Age of Onset Hypertension Mother Thyroid Mother Heart Father Hypertension Father COPD Father Smoker. Heart Maternal Grandmother Stroke Maternal Grandmother Cancer Maternal Grandmother COLON Cancer Paternal Grandmother STOMACH PAST SURGICAL HISTORY Procedure Laterality Date ARTHRP INTERPOS INTERCARPAL/METACARPAL JOINTS Right 10/13/2017 Right thumb CMC arthroplasty with LRTI CAUTERY CERVIX CRYOCAUTERY INITIAL/REPEAT 1999 CHOLECYSTECTOMY Cholecystectomy COLONOSCOPY FLX DX W/COLLJ SPEC WHEN PFRMD 04/10/09 COLONOSCOPY FLX DX W/COLLJ SPEC WHEN PFRMD 09/05/14 Repeat 2024 COLONOSCOPY FLX DX W/COLLJ SPEC WHEN PFRMD 12/22/2017 Colonoscopy COLPOSCOPY CERVIX UPPER/ADJACENT VAGINA Multiple starting 1995 Colposcopy LAPAROSCOPY COLECTOMY PARTIAL W/ANASTOMOSIS 12/07/2009 diverticulitis LIG/TRNSXJ FLP TUBE ABDL/VAG APPR UNI/BI Tubal ligation LX PARTIAL COLECTOMY 12/23/2017 [facility] lap lysis of adhesions, left oopherectomy, right salpinoopherectomy, left salpingectomy, redo lap sigmoid colectomy w/ressection, lap mobilization of splenic flexure, lap appendectomy PAST SURGICAL HISTORY OF 10/2008 T9-L1 fusion, Dr. Lemon PAST SURGICAL HISTORY OF 10/24/2009 Removed T9-L1, 2 rods and 8 screws, Dr Lemon PAST SURGICAL HISTORY OF 11/2018 Hysteroscopy with D&C and Polypectomy with Burroughs and Nephew Truclear device PICC LINE INSERT/CONSULT 07/11/2018 THYMECTOMY PRTL/TOT TRANSCERVICAL APPR SPX 07/14/2017 WEDGE RESECT LUNG Right 03/25/2020 Right VATS wedge resection of upper, middle and lower lung for pulmonary infiltrates PMH, Social history, family history and surgical history reviewed and updated in EMR REVIEW OF SYSTEMS: CONSTITUTIONAL: No fevers, chills, nightsweats, unintended weight loss HEENT: Denies headaches, nasal congestion/sinus symptoms, allergy problems. EYES: No diplopia or blurry vision. CARDIOVASCULAR: No chest pain, dyspnea, palpitations, orthopnea,edema. PULM: See HPI GI: No dysphagia/odynophagia, problematic reflux, constipation, diarrhea NEURO: No new balance problems, peripheral weakness/paresthesias or numbness of concern. MUSC-SKEL: No new joint pain, swelling, or erythema. INTEGUMENTARY: Worsening vitiligo PHYSICAL EXAMINATION: LMP 01/07/2011 BP 118/62, p&*, RR 17, SpO2 97%, Wt 89.4 kg (197 lbs) General Appearance: Overweight female, NAD Skin: Skin color, texture, turgor normal, no suspicious rashes or lesions. Vitiligo Head: Normocephalic, no masses, lesions, tenderness or abnormalities. Eyes: Sclera, conjunctiva normal Oropharynx:No oral lesions, thrush, no teleangectasias Neck: No JVD, no masses Lungs: Not labored, no wheezes. 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 No obvious physical sequelae of autoimmune/connective tissue disease -Esophageal dysmotility concerning for anti-synthetase related disease but no other sequelae and negative antibodies -New patch of ground glass concerning for current inflammation -Burst of steroids, repeat CT. 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 May need to increase to 1500 mg I spent a total of 50 minutes on the date of the service which included preparing to see the patient, [id number] patient care, completing clinical documentation, obtaining and/or reviewing separately obtained history, performing a medically appropriate examination, ordering medications, tests, or procedures, and independently interpreting results (not separately reported). Rowan Temple MD Respiratory Ovid documented in this encounter [facility] 02-13-2022 Miscellaneous Notes Reason for call: Mrs. Hawley would like to schedule a f/u appointment with Dr. Ferrer. Home and cell number [phone] Diagnosis Malignant neoplasm of thymus (HCC) Noa Marie documented in this encounter [facility] 12-25-2021 Miscellaneous Notes Duplicate message. See other mychart message. Kiki Patel RN documented in this encounter [facility] 12-22-2021 History of Present illness Narrative Patient presents for COVID booster. Denies any problems at this time. Tolerated injection well. Clementina Zaldivar LPN documented in this encounter [facility] 12-19-2021 History of Present illness Narrative 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 Patient presents with: F/U 6 Month HPI Asia Hawley is a 61 year old female who presents here today for 6 month follow up. Pt here today for a 6 month follow up. Reports today is a good day. Going to [facility] for [employer]. No bowel, Gi, or urinary issues. Does follow with Urologist Dr. Yang for OAB. 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 Did have recent US imaging due to a cystocele. Taking Myrbetriq 50 mg daily and estrace 0.01%. Has issues with constipation, eating prunes or cherries to help with BM's. GERD: No longer taking Prilosec. Has followed with Gastro Dr. Franklin for previous issues esophageal dysmotility, brad esophagitis and odynophagia. Has restarted the Nystatin suspension 2-3 x per day which helps keep symptoms stable. Did try to go without but symptoms came back. Thyroid: Taking Levothyroxine 100 mcg daily. Denies any missed dosages. Stable on this dosage. ILD: Interstitial lung disease; follows with Pulm, recent PFT testing. Pulmonary recommends PFT testing every [address] prior to 01/2022 visit. Monitoring CBC on Mycophenolate at 6 mo intervals. Taking Cellcept 500 mg BID and reglan 5 mg TID and Prednisone 10 mg once daily. Hoping to get off Prednisone in the future. Feels that she is doing well at this time. No longer coughing. Will be following with Dr. Temple. Tremors: Notes continued R hand tremor, not in the left. Denies this being any worse, only occurring intermittently and when she's eating or holding something. Denies this limiting her. Feels weight gain is related to being on chronic Prednisone, hoping to get off this. She is active does help care for a friends 4 year old. Does eat pretty well, active. Pt follows with Dr. 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 Will be following up after CT scan in January with a virtual visit. HM - Declines HIV screening. Declines Depression symptoms. Past medical history, appointments, medications, allergies reviewed. 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, 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 Unspecified hypothyroidism Previous Surgical History PAST SURGICAL HISTORY Procedure Laterality Date ARTHRP INTERPOS INTERCARPAL/METACARPAL JOINTS Right 10/13/2017 Right thumb CMC arthroplasty with LRTI CAUTERY CERVIX CRYOCAUTERY INITIAL/REPEAT 1999 CHOLECYSTECTOMY Cholecystectomy COLONOSCOPY FLX DX W/COLLJ SPEC WHEN PFRMD 04/10/09 COLONOSCOPY FLX DX W/COLLJ SPEC WHEN PFRMD 09/05/14 Repeat 2024 COLONOSCOPY FLX DX W/COLLJ SPEC WHEN PFRMD 12/22/2017 Colonoscopy COLPOSCOPY CERVIX UPPER/ADJACENT VAGINA Multiple starting 1995 Colposcopy LAPAROSCOPY COLECTOMY PARTIAL W/ANASTOMOSIS 12/07/2009 diverticulitis LIG/TRNSXJ FLP TUBE ABDL/VAG APPR UNI/BI Tubal ligation LX PARTIAL COLECTOMY 12/23/2017 [facility] lap lysis of adhesions, left oopherectomy, right salpinoopherectomy, left salpingectomy, redo lap sigmoid colectomy w/ressection, lap mobilization of splenic flexure, lap appendectomy PAST SURGICAL HISTORY OF 10/2008 T9-L1 fusion, Dr. Lemon PAST SURGICAL HISTORY OF 10/24/2009 Removed T9-L1, 2 rods and 8 screws, Dr Lemon PAST SURGICAL HISTORY OF 11/2018 Hysteroscopy with D&C and Polypectomy with Burroughs and Nephew Truclear device PICC LINE INSERT/CONSULT 07/11/2018 THYMECTOMY PRTL/TOT TRANSCERVICAL APPR SPX 07/14/2017 WEDGE RESECT LUNG Right 03/25/2020 Right VATS wedge resection of upper, middle and lower lung for pulmonary infiltrates Family History FAMILY HISTORY Problem Relation Age of Onset Hypertension Mother Thyroid Mother Heart Father Hypertension Father COPD Father Smoker. Heart Maternal Grandmother Stroke Maternal Grandmother Cancer Maternal Grandmother COLON Cancer Paternal Grandmother STOMACH Patient Allergies ALLERGIES Allergen Reactions Environmental [Othe* ? what=congestion Hay Fever [Seasonal* Zyrtec [Cetirizine * Itching Current Medications Current Outpatient Medications on File Prior to Visit Medication Sig MYRBETRIQ 50 mg Tb24 Take 1 tablet by mouth once daily. estradiol (ESTRACE) 0.01 % (0.1 mg/gram) vaginal cream Use 3 g vaginally once daily. phenazopyridine (PYRIDIUM) 200 mg tablet Take 1 tablet by mouth three times daily as needed. nystatin (MYCOSTATIN) 100,000 unit/mL suspension Take 5 mL by mouth four times daily. Swish and swallow (5 mL) 4 times per day. predniSONE (DELTASONE) 10 mg tablet Take 1 tablet by mouth once daily. omeprazole (PRILOSEC) 20 mg capsule Take 1 capsule by mouth daily before breakfast. 1/2 hr before meal. (Patient not taking: Reported on 11/05/2021 ) mycophenolate Mofetil (CELLCEPT) 500 mg tablet Take 1 tablet by mouth twice daily. metoclopramide HCl (REGLAN) 5 mg tablet Take 1 tablet by mouth three times daily. levothyroxine (SYNTHROID) 100 mcg tablet Take 1 tablet by mouth once daily. Take on empty stomach aspirin 81 mg chewable tablet Take 1 tablet by mouth once daily. acetaminophen (TYLENOL) 325 mg cap Take by mouth as needed. multivitamins(DAILY MULTIVITAMIN TAB) Take one(1) tablet daily. No current facility-administered medications on file prior to visit. Social History Social History Tobacco Use Smoking status: Never Smoker Smokeless tobacco: Never Used Tobacco comment: No one in household smokes. Smoker in childhood home. Vaping Use Vaping Use: Never used Substance Use Topics Alcohol use: Yes Comment: Rarely Drug use: No EXAM: BP 110/68 (BP Site: Left Arm, BP Position: Sitting, BP Cuff Size: Regular Adult) Pulse 78 Resp 16 Wt 85 kg (187 lb 6.4 oz) LMP 01/07/2011 BMI 30.71 kg/m General Appearance: Well appearing, alert, in no acute distress, well-hydrated, well nourished.. Neck: Supple, no adenopathy; thyroid symmetric, normal size, no bruits. Lungs: Lungs clear to auscultation. No wheezing, rhonchi, rales.. Heart: RRR without murmur, gallop, or rubs. No ectopy. Health Maintenance List HIV SCREENING Never done - Declined DTAP,TDAP,TD(3 - Td or Tdap) due on 04/29/2020 COVID-19 VACCINE(3 - Booster for Aristides series) due on 06/02/2021 SHINGRIX VACCINE(2 of 2) due on 07/31/2021 DEPRESSION SCREENING due on 12/16/2021 - Declined INFLUENZA(1) due on 01/15/2022 PNEUMOCOCCAL(2 - PCV) due on 04/21/2022 ANNUAL PCP TEAM CHRONIC DISEASE VISIT due on 06/18/2022 MAMMOGRAM due on 06/26/2022 PAP TESTING due on 08/24/2023 HPV TESTING due on 08/24/2023 DIABETES SCREEN due on 06/10/2024 LIPID SCREEN due on 08/28/2024 COLORECTAL CANCER SCREENING due on 12/23/2027 HEPATITIS C SCREENING Completed Data reviewed Appointment on 12/04/2021 Component Date Value Protein, Total 12/04/2021 6.8 Albumin 12/04/2021 4.2 Calcium, Total 12/04/2021 9.1 Bilirubin, Total 12/04/2021 0.5 Alkaline Phosphatase 12/04/2021 82 AST 12/04/2021 20 ALT 12/04/2021 11 Glucose 12/04/2021 80 BUN 12/04/2021 23 (A) Creatinine 12/04/2021 0.94 Sodium 12/04/2021 140 Potassium 12/04/2021 3.9 Chloride 12/04/2021 103 CO2 12/04/2021 27 Anion Gap 12/04/2021 10 Estimated Glomerular Rm* 12/04/2021 68 TSH 12/04/2021 1.930 WBC 12/04/2021 11.17 (A) RBC 12/04/2021 4.98 Hemoglobin 12/04/2021 13.9 Hematocrit 12/04/2021 43.8 MCV 12/04/2021 88.0 MCH 12/04/2021 27.9 MCHC 12/04/2021 31.7 RDW-CV 12/04/2021 13.5 Platelet Count 12/04/2021 302 MPV 12/04/2021 11.1 Neut% 12/04/2021 56.9 Abs Neut 12/04/2021 6.36 Lymph% 12/04/2021 33.4 Abs Lymph 12/04/2021 3.73 [place]% 12/04/2021 8.0 Abs [place] 12/04/2021 0.89 (A) Eosin% 12/04/2021 0.0 Abs Eosin 12/04/2021 <0.03 Baso% 12/04/2021 0.2 Abs Baso 12/04/2021 <0.03 Immature Gran % 12/04/2021 1.5 Abs Immature Gran 12/04/2021 0.17 (A) NRBC 12/04/2021 0.0 Absolute nRBC 12/04/2021 <0.01 Diff Type 12/04/2021 Auto Office Visit on 11/26/2021 Component Date Value GLUCOSE UA (POCT) 11/26/2021 Negative BILIRUBIN UA (POCT) 11/26/2021 Negative KETONE UA (POCT) 11/26/2021 Negative SPECIFIC GRAVITY UA (POC* 11/26/2021 >=1.030 HEMOGLOBIN/BLOOD UA (PO* 11/26/2021 Moderate (A) PH UA (POCT) 11/26/2021 5.0 PROTEIN UA (POCT) 11/26/2021 Negative UROBILINOGEN UA (POCT) 11/26/2021 0.2 NITRITE UA (POCT) 11/26/2021 Negative LEUKOCYTES UA (POCT) 11/26/2021 Negative COLOR UA (POCT) 11/26/2021 Yellow CLARITY UA (POCT) 11/26/2021 Clear Office Visit on 11/05/2021 Component Date Value GLUCOSE UA (POCT) 11/05/2021 Negative BILIRUBIN UA (POCT) 11/05/2021 Negative KETONE UA (POCT) 11/05/2021 Negative SPECIFIC GRAVITY UA (POC* 11/05/2021 1.015 HEMOGLOBIN/BLOOD UA (PO* 11/05/2021 Large (A) PH UA (POCT) 11/05/2021 5.0 PROTEIN UA (POCT) 11/05/2021 30 (A) UROBILINOGEN UA (POCT) 11/05/2021 0.2 NITRITE UA (POCT) 11/05/2021 Negative LEUKOCYTES UA (POCT) 11/05/2021 Small (A) COLOR UA (POCT) 11/05/2021 Yellow CLARITY UA (POCT) 11/05/2021 Clear Culture, Urine 11/05/2021 Mixed microbiota, including predominantly: Culture, Urine 11/05/2021 >=100,000 CFU/ml Escherichia coli (A) ASSESSMENT/PLAN: 1. Hypothyroidism, unspecified type - ICD9: 244.9, ICD10: E03.9 (primary diagnosis) - Instructed patient on importance of taking on an empty stomach either first thing in the morning or at bedtime. Stable - Continue current medication regimen. 2. Chronic constipation - ICD9: 564.00, ICD10: K59.09 - Stable 3. Essential tremor - ICD9: 333.1, ICD10: G25.0 - Stable 4. OAB (overactive bladder) - ICD9: 596.51, ICD10: N32.81 - Continue current medication regimen. 5. Low sodium levels - ICD9: 276.1, ICD10: E87.1 - Stable 6. ILD (interstitial lung disease) (HCC) - ICD9: 515, ICD10: J84.9 - Cont f/u with Pulmonary 7. 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 Thymoma, malignant (HCC) - ICD9: 164.0, ICD10: C37 - See Thoracic 9. Brad esophagitis (HCC) - ICD9: 112.84, ICD10: B37.81 - Continue current medication regimen. 6 mo f/u; labs prior I agree with the 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, ROS, and Past Histories independently gathered by the clinical it support consultant and the remaining scribed note accurately describes my personal service to the patient. Medical Decision Making: Problems: Moderate: 2+ stable chronic illnesses Data: Unique test result(s) reviewed: 3+ Unique test(s) ordered: 3+ Risk: Moderate: Drug management Medical Decision Making Level: 4 - Moderate Priyanka Smith MD The documentation for this note was completed by Tess Persaud Ma acting as scribe for Priyanka Smith MD. December 19, 2021 9:18 AM. Tess Persaud Ma documented in this encounter [facility] 12-12-2021 Miscellaneous Notes Patient phones requesting refills as follows: Pending Prescriptions Disp Refills PREDNISONE 10 MG TABLET Sig: Take 1 tablet by mouth once daily. ARIANA: No Please review and advise. Former patient of Dr. Cuenca. She has an appointment to establish with Dr. Temple on 02/16/22. Citlaly Amaya RN documented in this encounter [facility] 12-01-2021 History of Present illness Narrative Radiology Service Progress Note PATIENT NAME: Asia Hawley DATE OF SERVICE: December 01, 2021 TIME: 1:42 PM PATIENT IDENTITY VERIFICATION COMPLETED USING TWO (2) IDENTIFIERS: Name and Date of confirmed by patient verbally. FALL SCREENING: Has the patient had 2 falls in the last year or 1 fall with injury or currently using an Ambulatory Assistive Device (Walker, Cane, Wheelchair, Crutches, etc.)? No PATIENT GENDER DATA: Female. status: : No status: NO. PATIENT RELEVANT IMPLANT DATA REVIEWED: Not Applicable RADIOLOGY DEPARTMENT: Ultrasound PERIPHERAL IV DATA: Not applicable SIGNED BY: RT Vidal(R) December 01, 2021 1:42 PM documented in this encounter [facility] 11-26-2021 Miscellaneous Notes Pharmacy called requesting the following refill. Pending Prescriptions Disp Refills MYRBETRIQ 50 MG TABLET,EXTENDED RELEASE 30 tablet 11 Sig: Take 1 tablet by mouth once daily. ARIANA: Yes Patient last appointment: Visit date not found Patient Phone numbers: [phone] (home) Request is for script(s) to be escript to pharmacy. Reagan Vigil Ma documented in this encounter [facility] 11-26-2021 History of Present illness Narrative Asia is a 61 year old who presents for an annual gynecologic exam with complaints, Urinary urgency. Postmenopausal: Yes, since 2010 HRT use: No. Last Pap: 08/30/2018 normal HPV: 08/25/2018 negative History of abnormal pap: Yes Last mammogram: 2017 normal History of abnormal mammogram: No Sexually active: Yes Patient concerns for STD exposure: No. 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, 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 Unspecified hypothyroidism PAST SURGICAL HISTORY Procedure Laterality Date ARTHRP INTERPOS INTERCARPAL/METACARPAL JOINTS Right 10/13/2017 Right thumb CMC arthroplasty with LRTI CAUTERY CERVIX CRYOCAUTERY INITIAL/REPEAT 1999 CHOLECYSTECTOMY Cholecystectomy COLONOSCOPY FLX DX W/COLLJ SPEC WHEN PFRMD 04/10/09 COLONOSCOPY FLX DX W/COLLJ SPEC WHEN PFRMD 09/05/14 Repeat 2024 COLONOSCOPY FLX DX W/COLLJ SPEC WHEN PFRMD 12/22/2017 Colonoscopy COLPOSCOPY CERVIX UPPER/ADJACENT VAGINA Multiple starting 1995 Colposcopy LAPAROSCOPY COLECTOMY PARTIAL W/ANASTOMOSIS 12/07/2009 diverticulitis LIG/TRNSXJ FLP TUBE ABDL/VAG APPR UNI/BI Tubal ligation LX PARTIAL COLECTOMY 12/23/2017 [facility] lap lysis of adhesions, left oopherectomy, right salpinoopherectomy, left salpingectomy, redo lap sigmoid colectomy w/ressection, lap mobilization of splenic flexure, lap appendectomy PAST SURGICAL HISTORY OF 10/2008 T9-L1 fusion, Dr. Lemon PAST SURGICAL HISTORY OF 10/24/2009 Removed T9-L1, 2 rods and 8 screws, Dr Lemon PAST SURGICAL HISTORY OF 11/2018 Hysteroscopy with D&C and Polypectomy with [employer]s and Nephew Truclear device PICC LINE INSERT/CONSULT 07/11/2018 THYMECTOMY PRTL/TOT TRANSCERVICAL APPR SPX 07/14/2017 WEDGE RESECT LUNG Right 03/25/2020 Right VATS wedge resection of upper, middle and lower lung for pulmonary infiltrates FAMILY HISTORY Problem Relation Age of Onset Hypertension Mother Thyroid Mother Heart Father Hypertension Father COPD Father Smoker. Heart Maternal Grandmother Stroke Maternal Grandmother Cancer Maternal Grandmother COLON Cancer Paternal Grandmother STOMACH SOCIAL HISTORY Social History Tobacco Use Smoking status: Never Smoker Smokeless tobacco: Never Used Tobacco comment: No one in household smokes. Smoker in childhood home. Vaping Use Vaping Use: Never used Substance Use Topics Alcohol use: Yes Comment: Rarely Drug use: No REVIEW OF SYSTEMS Abdomen: No abdominal pain, nausea, vomiting, diarrhea, or constipation. No indigestion, or increased flatulence. + bloating and early satiety Bladder: No dysuria, gross hematuria, or incontinence. + urgency and frequency Breast: No breast lumps, nipple d/c, overlying skin changes, redness or skin retraction Allergies and current medication updated:Yes EXAM: LMP 01/07/2011 GENERAL: pleasant, female in no apparent distress HEENT: Normocephalic, atraumatic, mucus membranes moist and no lesions NECK: Supple and full range of motion DERMATOLOGY: Normal and without lesions BREAST: soft, non-tender, symmetric, no dominant mass, normal nipple-areolar complex, no lymphadenopathy and no nipple discharge CHEST: Normal inspiratory effort ABDOMEN: soft, non-tender and no masses PELVIC: external genitalia normal, normal Bartholin's glands, urethra, [place]'s glands, no vulvar lesions, no cervical lesions, normal appearing perineal body and perianal region. Cystocele midline. Atrophic changes noted BIMANUAL: uterus normal size, shape and consistency, no adnexal masses, non-tender and no cervical motion tenderness RECTOVAGINAL: deferred. NEURO: alert and oriented x3,exam grossly non-focal EXTREMITIES: normal ASSESSMENT/PLAN: 1. Cystocele, midline - ICD9: 618.01, ICD10: N81.11 (primary diagnosis) - CONSULT TO URO GYNECOLOGY - US FEMALE PELVIS TRANSVAG- for early satiety 2. Encounter for gynecological examination (general) (routine) without abnormal findings - ICD9: V72.31, ICD10: Z01.419 - Completed pelvic and breast exam - Follow up for annual exam in one year. 3. Encounter for screening mammogram for breast cancer - ICD9: V76.12, ICD10: Z12.31 - CHYNA SCREENING W KOBE- order placed 4. Urinary urgency - ICD9: 788.63, ICD10: R39.15 - Recent treatment for UTI - Urine dip - negative other than moderate blood 5. Urinary frequency - ICD9: 788.41, ICD10: R35.0 6. 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 Please place order at this time. Clementina Zaldivar LPN documented in this encounter [facility] 11-05-2021 Instructions Cleo Maynard APRN.CNM - 11/05/2021 9:50 AM EDT ABOUT URINARY TRACT INFECTIONS Urinary tract infections (UTIs) are more common in women. Usually they involve the bladder only (cystitis), but they can go up into the kidneys (pyelonephritis) which is a more serious infection and requires a longer course of antibiotics. Symptoms of a bladder infection (cystitis) can include frequent +/or painful urination, urgent urination, cloudy or bloody urine. Nausea, flank pain, fevers, and chills may indicate a kidney infection (pyelonephritis). Treatment include: - antibiotics (1-7 days for cystitis depending on the antibiotic, or 10-14 days or more for pyelonephritis or recurrent cystitis). - medicine to relieve bladder spasms may be prescribed-pyridium, etc. Pyridium will cause your urine to turn bright orange and may discolor contacts-do not wear them while you are taking it. It will also stain your underwear, so wear a panty liner if you tend to leak urine. - it is important that you drink lots of fluids (at least 6-8 full glasses daily) both to treat and prevent future UTIs. Cranberry juice (but not the pill form) does have some anti-UTI properties. Prevention - if your get recurrent UTIs (more than one yearly), try to prevent them by the following measures: -keep the area around the vagina and rectum clean -wipe from front to back, especially after a BM. -keep you fluid intake high to keep your urine dilute. -don't regularly hold your urine for prolonged periods of time-try to urinate every 3-4 hours while awake. -urinate immediately after sexual intercourse to get rid of the bacteria that are pushed up into the bladder during intercourse. -if you use a diaphragm and spermicide, you are at a higher risk of UTI. -wear cotton underwear and avoid tight-fitting clothing. documented in this encounter [facility] 11-05-2021 History of Present illness Narrative Asia Hawley is a 61 year old female who presents for problem visit for urinary urgency. HPI: Overactive bladder, getting up every 1-2 hours with urination at night. During the day will go every 1-2 hours as well. Has to make sure a bathroom is close by. If she feels the urgency she goes or goes in preparation for going somewhere. Not able to hold it. This started about beginning of 2019. Has lower pelvic pressure that improves after urination. This started 3 months ago. Urgency and denies urge incontinence. Admits has happened but very rare. Seeing Dr. Yang for Urology, took ditropan and didn't help. Switched to mrybitric but does not think this is really helping, started 5 months ago. Was to schedule PFTs if needed. Denies stress incontinence. Significant other, pain with intercourse at times, dryness. Uses lubrication. 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 Unspecified hypothyroidism PAST SURGICAL HISTORY Procedure Laterality Date ARTHRP INTERPOS INTERCARPAL/METACARPAL JOINTS Right 10/13/2017 Right thumb CMC arthroplasty with LRTI CAUTERY CERVIX CRYOCAUTERY INITIAL/REPEAT 1999 CHOLECYSTECTOMY Cholecystectomy COLONOSCOPY FLX DX W/COLLJ SPEC WHEN PFRMD 04/10/09 COLONOSCOPY FLX DX W/COLLJ SPEC WHEN PFRMD 09/05/14 Repeat 2024 COLONOSCOPY FLX DX W/COLLJ SPEC WHEN PFRMD 12/22/2017 Colonoscopy COLPOSCOPY CERVIX UPPER/ADJACENT VAGINA Multiple starting 1995 Colposcopy LAPAROSCOPY COLECTOMY PARTIAL W/ANASTOMOSIS 12/07/2009 diverticulitis LIG/TRNSXJ FLP TUBE ABDL/VAG APPR UNI/BI Tubal ligation LX PARTIAL COLECTOMY 12/23/2017 [facility] lap lysis of adhesions, left oopherectomy, right salpinoopherectomy, left salpingectomy, redo lap sigmoid colectomy w/ressection, lap mobilization of splenic flexure, lap appendectomy PAST SURGICAL HISTORY OF 10/2008 T9-L1 fusion, Dr. Lemon PAST SURGICAL HISTORY OF 10/24/2009 Removed T9-L1, 2 rods and 8 screws, Dr Lemon PAST SURGICAL HISTORY OF 11/2018 Hysteroscopy with D&C and Polypectomy with [employer] Truclear device PICC LINE INSERT/CONSULT 07/11/2018 THYMECTOMY PRTL/TOT TRANSCERVICAL APPR SPX 07/14/2017 WEDGE RESECT LUNG Right 03/25/2020 Right VATS wedge resection of upper, middle and lower lung for pulmonary infiltrates FAMILY HISTORY Problem Relation Age of Onset Hypertension Mother Thyroid Mother Heart Father Hypertension Father COPD Father Smoker. Heart Maternal Grandmother Stroke Maternal Grandmother Cancer Maternal Grandmother COLON Cancer Paternal Grandmother STOMACH Social History Tobacco Use Smoking status: Never Smoker Smokeless tobacco: Never Used Tobacco comment: No one in household smokes. Smoker in childhood home. Vaping Use Vaping Use: Never used Substance Use Topics Alcohol use: Yes Comment: Rarely Drug use: No Current Outpatient Medications Medication Sig MYRBETRIQ 50 mg Tb24 Take 50 mg by mouth once daily. nystatin (MYCOSTATIN) 100,000 unit/mL suspension Take 5 mL by mouth four times daily. Swish and swallow (5 mL) 4 times per day. predniSONE (DELTASONE) 10 mg tablet Take 1 tablet by mouth once daily. mycophenolate Mofetil (CELLCEPT) 500 mg tablet Take 1 tablet by mouth twice daily. metoclopramide HCl (REGLAN) 5 mg tablet Take 1 tablet by mouth three times daily. levothyroxine (SYNTHROID) 100 mcg tablet Take 1 tablet by mouth once daily. Take on empty stomach aspirin 81 mg chewable tablet Take 1 tablet by mouth once daily. acetaminophen (TYLENOL) 325 mg cap Take by mouth as needed. multivitamins(DAILY MULTIVITAMIN TAB) Take one(1) tablet daily. omeprazole (PRILOSEC) 20 mg capsule Take 1 capsule by mouth daily before breakfast. 1/2 hr before meal. (Patient not taking: Reported on 11/05/2021 ) No current facility-administered medications for this visit. Allergies As of Date: 11/05/2021 Allergen Noted Reaction ENVIRONMENTAL [OTHER] 12/28/2006 HAY FEVER [SEASONAL ALLERGIES] 08/13/2009 ZYRTEC [CETIRIZINE HCL] 08/06/2014 Itching Fully Assessed 11/05/2021 REVIEW OF SYSTEMS Abdomen: No bloating, early satiety, indigestion, or increased flatulence. No abdominal pain, nausea, vomiting, diarrhea, or constipation. Bladder: See HPI. Breast: No breast lumps, nipple d/c, overlying skin changes, redness or skin retraction. Expanded ROS: N/A Allergies and current medication updated:Yes EXAM: BP 112/70 Wt 181 lb (82.1kg) LMP 01/07/2011 GENERAL: pleasant, female in no apparent distress HEENT: Normocephalic and atraumatic NECK: Supple and full range of motion PELVIC: deferred BIMANUAL: deferred NEURO: alert and oriented x3,exam grossly non-focal EXTREMITIES: normal ASSESSMENT AND PLAN: 1. Urinary urgency - ICD9: 788.63, ICD10: R39.15 (primary diagnosis) - URINE CULTURE - Will treat for UTI today due to UA results. Will try Macrobid 2. Overactive bladder - ICD9: 596.51, ICD10: N32.81 - Discussed to continue Myrbetriq at this time as prescribed. Will follow up after UTI treatment and possible vaginal estrogen. Will see patient for annual exam and discuss Cleo Maynard APRN.CNM documented in this encounter [facility] 08-18-2021 History of Present illness Narrative [facility] [place], 08/12/2021: Name: Asia Hawley : 1960 INTERVAL HISTORY: No cough, purulent sputum, hemoptysis, dyspnea, pleuritic chest pain. ROS: No fever, anorexia. No rash. Occasional swallowing difficulty. Problem list, PMH, PSH, FAMH, SOCH: Reviewed with patient today, and updated accordingly. Immunizations reviewed today. Allergies reviewed and updated, and medications reconciled today. PHYSICAL EXAMINATION: BP 108/62 (BP Site: Left Arm, BP Position: Sitting, BP Cuff Size: Regular Adult) Pulse 94 Ht 161.3 cm (5' 3.5 ) Wt 77.1 kg (170 lb) LMP 01/07/2011 SpO2 99% BMI 29.64 kg/m Gen: No acute distress. Cooperative with examination. Appears healthy and well. ENT: Sclerae clear. Nares clear. Oral hygeine/dentition good. Pharynx clear. No halitosis. Resp: No stridor, accessory respiratory muscle use, supra-sternal retractions. A-P diameter normal. No crackles, wheezes, rubs. CV: Regular rythm. Heart tones normal. Radial pulses normal. Abd: Not distended. MSK: No kyphoscoliosis. No joint deformities of the wrists, hands, fingers. Ext: Warm and well perfused. No clubbing, cyanosis, edema, sclerodactyly, Raynaud's. Skin: Color normal. Texture normal. No rash, eczema, telangiectasia, ecchymoses. Endo: No goiter. Neuro: Mental status normal. Affect normal. Muscle strength symmetrical. No tremor. DATA REVIEW: CT Chest 04/07/2021 Spirometry 08/12/2021 CBC 08/12/2021 Comprehensive metabolic panel 06/18/2021 MEDICAL DECISION MAKING: Pulmonary function testing remains normal. CBC looks fine. No toxicity form Mycophenolate (Cellcept). 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 - Continue current doses of both. - Continue to monitor PFT at 6 month intervals, CT chest will be repeated prior to 01/2022 visit. - Continue to monitor CBC on Mycophenolate at 6 month intervals, 01/2022 and 07/2022, special attention to both absolute neutrophil count and absolute lymphocyte count, both of which have remained in normal range. Regarding vaccinations: - I recommend we measure the Zoster antibodies to determine if repeat Shingles vaccination is needed. I am retiring from the staff of [facility] and the practice of Medicine on November 13, 2021, after 41 years of service to my patients. It has been my privilege to provide you with Pulmonary consultation and care for the time we have known each other. Please feel confident that my colleagues are well equipped to provide ongoing care in the future: Rafael Temple MD and Gerri Cruz PA-C. Sandra Stroud MD. Gumaro Cuenca MD, [facility] [address] [place] [id number] P: [phone] F: [phone] [email or web address] documented in this encounter [facility] 08-12-2021 Instructions Gumaro Cuenca MD - 08/12/2021 2:12 PM EDT MEDICAL DECISION MAKING: Pulmonary function testing remains normal. CBC looks fine. No toxicity form Mycophenolate (Cellcept). 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 - Continue current doses of both. - Continue to monitor PFT at 6 month intervals, CT chest will be repeated prior to 01/2022 visit. - Continue to monitor CBC on Mycophenolate at 6 month intervals, 01/2022 and 07/2022, special attention to both absolute neutrophil count and absolute lymphocyte count, both of which have remained in normal range. Regarding vaccinations: - I recommend we measure the Zoster antibodies to determine if repeat Shingles vaccination is needed. I am retiring from the staff of [facility] and the practice of Medicine on November 13, 2021, after 41 years of service to my patients. It has been my privilege to provide you with Pulmonary consultation and care for the time we have known each other. Please feel confident that my colleagues are well equipped to provide ongoing care in the future: Rafael Temple MD and VELMA Anderson MD. Gumaro Cuenca MD, [facility] [address] [address] P: [phone] F: [phone] [email or web address] documented in this encounter [facility] 08-12-2021 History of Present illness Narrative PULM FUNCTION SMARTBLOCK: Provider: Gumaro Cuenca MD Assisting Tech: Ernestina Tavarez RRT Spirometry: 1 System: [id number] documented in this encounter [facility] 08-06-2021 Miscellaneous Notes The following approved medication requests have been transmitted electronically. Signed Prescriptions Disp Refills omeprazole (PRILOSEC) 20 mg capsule 90 capsule 3 Sig: Take 1 capsule by mouth daily before breakfast. 1/2 hr before meal. ARIANA: No Juwan Tobar APRN.CNP Patient last visit with PCP 06/18/21 Follow up appointment scheduled 12/19/21 Rowan Soler Ma documented in this encounter [facility] 06-26-2020 History of Present illness Narrative Radiology Service Progress Note PATIENT NAME: Asia Hawley DATE OF SERVICE: June 26, 2020 TIME: 3:42 PM PATIENT IDENTITY VERIFICATION COMPLETED USING TWO (2) IDENTIFIERS: Name and Date of confirmed by patient verbally. FALL SCREENING: Has the patient had 2 falls in the last year or 1 fall with injury or currently using an Ambulatory Assistive Device (Walker, Cane, Wheelchair, Crutches, etc.)? No PATIENT GENDER DATA: Female. status: : No status: NO. 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) 07/08/2018 06/22/2023 Last Assessment & Plan: See plan above Severe protein-calorie malnutrition 06/15/2018 06/22/2023 Overview: Last Assessment & Plan: As per nutrition Continue reg diet, 1500ml fluid restriction and supplement daily Generalized weakness 06/14/2018 019 Last Assessment & Plan: x1 month prior to admission Suspect 06/18 #1; CT brain neg, no signs of infection Vitamin D low, supplementing orally GERD (gastroesophageal reflux disease) 10/01/2017 07/08/2018 Obesity, Class I, BMI 30-34.9 E66.9 09/03/2017 07/08/2018 Primary osteoarthritis of fi rst carpometacarpal joint of right hand 08/05/201706/18 Overview: Added automatically from request for surgery [id number] Open wound(s) (multiple) of unspecified site(s), without mention of complication 06/02/2012 10/01/2017 Chronic urticaria 03/03/2012 10/01/2017 Calcaneal spur 06/03/2010 10/01/2017 Diverticulosis 02/06/2010 07/08/2018 Closed fracture of dorsal (t horacic) vertebra without mention of spinal cord injury 11/19/2008 Closed fracture of sacrum an d coccyx without mention of spinal cord injury 05/31/2007 02/06/2010 Dyspareunia 05/03/2006 02/06/2010 Abnormal Papanicolaou smear of vagina and vaginal HPV 02/06/2010 Hives 10/01/2017 documented as of this encounter (statuses as of 06/22/2023) [facility] History of Past illness Narrative* Problem Noted Date Diagnosed Date Resolved Date Thymoma, 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) 07/08/2018 06/22/2023 Last Assessment & Plan: See plan above Severe protein-calorie malnutrition 06/15/2018 06/22/2023 Overview: Last Assessment & Plan: As per nutrition Continue reg diet, 1500ml fluid restriction and supplement daily Generalized weakness 06/14/2018 019 Last Assessment & Plan: x1 month prior to admission Suspect 06/18 #1; CT brain neg, no signs of infection Vitamin D low, supplementing orally GERD (gastroesophageal reflux disease) 10/01/2017 07/08/2018 Obesity, Class I, BMI 30-34.9 E66.9 09/03/2017 07/08/2018 Primary osteoarthritis of fi rst carpometacarpal joint of right hand 08/05/201706/18 Overview: Added automatically from request for surgery [id number] Open wound(s) (multiple) of unspecified site(s), without mention of complication 06/02/2012 10/01/2017 Chronic urticaria 03/03/2012 10/01/2017 Calcaneal spur 06/03/2010 10/01/2017 Diverticulosis 02/06/2010 07/08/2018 Closed fracture of dorsal (t horacic) vertebra without mention of spinal cord injury 11/19/2008 Closed fracture of sacrum an d coccyx without mention of spinal cord injury 05/31/2007 02/06/2010 Dyspareunia 05/03/2006 02/06/2010 Abnormal Papanicolaou smear of vagina and vaginal HPV 02/06/2010 Hives 10/01/2017 documented as of this encounter (statuses as of 08/09/2023) [facility] History of Past illness Narrative* Problem Noted Date Diagnosed Date Resolved Date Thymoma, 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) 07/08/2018 06/22/2023 Last Assessment & Plan: See plan above Severe protein-calorie malnutrition 06/15/2018 06/22/2023 Overview: Last Assessment & Plan: As per nutrition Continue reg diet, 1500ml fluid restriction and supplement daily Generalized weakness 06/14/2018 019 Last Assessment & Plan: x1 month prior to admission Suspect 06/18 #1; CT brain neg, no signs of infection Vitamin D low, supplementing orally GERD (gastroesophageal reflux disease) 10/01/2017 07/08/2018 Obesity, Class I, BMI 30-34.9 E66.9 09/03/2017 07/08/2018 Primary osteoarthritis of fi rst carpometacarpal joint of right hand 08/05/201706/18 Overview: Added automatically from request for surgery [id number] Open wound(s) (multiple) of unspecified site(s), without mention of complication 06/02/2012 10/01/2017 Chronic urticaria 03/03/2012 10/01/2017 Calcaneal spur 06/03/2010 10/01/2017 Diverticulosis 02/06/2010 07/08/2018 Closed fracture of dorsal (t horacic) vertebra without mention of spinal cord injury 11/19/2008 Closed fracture of sacrum an d coccyx without mention of spinal cord injury 05/31/2007 02/06/2010 Dyspareunia 05/03/2006 02/06/2010 Abnormal Papanicolaou smear of vagina and vaginal HPV 02/06/2010 Hives 10/01/2017 documented as of this encounter (statuses as of 08/09/2023) [facility] History of Past illness Narrative* Problem Noted Date Diagnosed Date Resolved Date Thymoma, 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) 07/08/2018 06/22/2023 Last Assessment & Plan: See plan above Severe protein-calorie malnutrition 06/15/2018 06/22/2023 Overview: Last Assessment & Plan: As per nutrition Continue reg diet, 1500ml fluid restriction and supplement daily Generalized weakness 06/14/2018 019 Last Assessment & Plan: x1 month prior to admission Suspect 06/18 #1; CT brain neg, no signs of infection Vitamin D low, supplementing orally GERD (gastroesophageal reflux disease) 10/01/2017 07/08/2018 Obesity, Class I, BMI 30-34.9 E66.9 09/03/2017 07/08/2018 Primary osteoarthritis of fi rst carpometacarpal joint of right hand 08/05/201706/18 Overview: Added automatically from request for surgery [id number] Open wound(s) (multiple) of unspecified site(s), without mention of complication 06/02/2012 10/01/2017 Chronic urticaria 03/03/2012 10/01/2017 Calcaneal spur 06/03/2010 10/01/2017 Diverticulosis 02/06/2010 07/08/2018 Closed fracture of dorsal (t horacic) vertebra without mention of spinal cord injury 11/19/2008 Closed fracture of sacrum an d coccyx without mention of spinal cord injury 05/31/2007 02/06/2010 Dyspareunia 05/03/2006 02/06/2010 Abnormal Papanicolaou smear of vagina and vaginal HPV 02/06/2010 Hives 10/01/2017 documented as of this encounter (statuses as of 08/19/2023) [facility] History of Past illness Narrative* Problem Noted Date Diagnosed Date Resolved Date Thymoma, 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) 07/08/2018 06/22/2023 Last Assessment & Plan: See plan above Severe protein-calorie malnutrition 06/15/2018 06/22/2023 Overview: Last Assessment & Plan: As per nutrition Continue reg diet, 1500ml fluid restriction and supplement daily Generalized weakness 06/14/2018 019 Last Assessment & Plan: x1 month prior to admission Suspect 06/18 #1; CT brain neg, no signs of infection Vitamin D low, supplementing orally GERD (gastroesophageal reflux disease) 10/01/2017 07/08/2018 Obesity, Class I, BMI 30-34.9 E66.9 09/03/2017 07/08/2018 Primary osteoarthritis of fi rst carpometacarpal joint of right hand 08/05/201706/18 Overview: Added automatically from request for surgery [id number] Open wound(s) (multiple) of unspecified site(s), without mention of complication 06/02/2012 10/01/2017 Chronic urticaria 03/03/2012 10/01/2017 Calcaneal spur 06/03/2010 10/01/2017 Diverticulosis 02/06/2010 07/08/2018 Closed fracture of dorsal (t horacic) vertebra without mention of spinal cord injury 11/19/2008 Closed fracture of sacrum an d coccyx without mention of spinal cord injury 05/31/2007 02/06/2010 Dyspareunia 05/03/2006 02/06/2010 Abnormal Papanicolaou smear of vagina and vaginal HPV 02/06/2010 Hives 10/01/2017 documented as of this encounter (statuses as of 08/21/2023) [facility]09[facility]2020 History of Past illness Narrative* Problem Noted Date Diagnosed Date Resolved Date Thymoma, 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) 07/08/2018 06/22/2023 Last Assessment & Plan: See plan above Severe protein-calorie malnutrition 06/15/2018 06/22/2023 Overview: Last Assessment & Plan: As per nutrition Continue reg diet, 1500ml fluid restriction and supplement daily Generalized weakness 06/14/2018 019 Last Assessment & Plan: x1 month prior to admission Suspect 06/18 #1; CT brain neg, no signs of infection Vitamin D low, supplementing orally GERD (gastroesophageal reflux disease) 10/01/2017 07/08/2018 Obesity, Class I, BMI 30-34.9 E66.9 09/03/2017 07/08/2018 Primary osteoarthritis of fi rst carpometacarpal joint of right hand 08/05/201706/18 Overview: Added automatically from request for surgery [id number] Open wound(s) (multiple) of unspecified site(s), without mention of complication 06/02/2012 10/01/2017 Chronic urticaria 03/03/2012 10/01/2017 Calcaneal spur 06/03/2010 10/01/2017 Diverticulosis 02/06/2010 07/08/2018 Closed fracture of dorsal (t horacic) vertebra without mention of spinal cord injury 11/19/2008 Closed fracture of sacrum an d coccyx without mention of spinal cord injury 05/31/2007 02/06/2010 Dyspareunia 05/03/2006 02/06/2010 Abnormal Papanicolaou smear of vagina and vaginal HPV 02/06/2010 Hives 10/01/2017 documented as of this encounter (statuses as of 08/28/2023) [facility] History of Past illness Narrative* Problem Noted Date Diagnosed Date Resolved Date Thymoma, 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) 07/08/2018 06/22/2023 Last Assessment & Plan: See plan above Severe protein-calorie malnutrition 06/15/2018 06/22/2023 Overview: Last Assessment & Plan: As per nutrition Continue reg diet, 1500ml fluid restriction and supplement daily Generalized weakness 06/14/2018 019 Last Assessment & Plan: x1 month prior to admission Suspect 06/18 #1; CT brain neg, no signs of infection Vitamin D low, supplementing orally GERD (gastroesophageal reflux disease) 10/01/2017 07/08/2018 Obesity, Class I, BMI 30-34.9 E66.9 09/03/2017 07/08/2018 Primary osteoarthritis of fi rst carpometacarpal joint of right hand 08/05/201706/18 Overview: Added automatically from request for surgery [id number] Open wound(s) (multiple) of unspecified site(s), without mention of complication 06/02/2012 10/01/2017 Chronic urticaria 03/03/2012 10/01/2017 Calcaneal spur 06/03/2010 10/01/2017 Diverticulosis 02/06/2010 07/08/2018 Closed fracture of dorsal (t horacic) vertebra without mention of spinal cord injury 11/19/2008 Closed fracture of sacrum an d coccyx without mention of spinal cord injury 05/31/2007 02/06/2010 Dyspareunia 05/03/2006 02/06/2010 Abnormal Papanicolaou smear of vagina and vaginal HPV 02/06/2010 Hives 10/01/2017 documented as of this encounter (statuses as of 09/02/2023) [facility] History of Past illness Narrative* Problem Noted Date Diagnosed Date Resolved Date Thymoma, 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) 07/08/2018 06/22/2023 Last Assessment & Plan: See plan above Severe protein-calorie malnutrition 06/15/2018 06/22/2023 Overview: Last Assessment & Plan: As per nutrition Continue reg diet, 1500ml fluid restriction and supplement daily Generalized weakness 06/14/2018 019 Last Assessment & Plan: x1 month prior to admission Suspect 06/18 #1; CT brain neg, no signs of infection Vitamin D low, supplementing orally GERD (gastroesophageal reflux disease) 10/01/2017 07/08/2018 Obesity, Class I, BMI 30-34.9 E66.9 09/03/2017 07/08/2018 Primary osteoarthritis of fi rst carpometacarpal joint of right hand 08/05/201706/18 Overview: Added automatically from request for surgery [id number] Open wound(s) (multiple) of unspecified site(s), without mention of complication 06/02/2012 10/01/2017 Chronic urticaria 03/03/2012 10/01/2017 Calcaneal spur 06/03/2010 10/01/2017 Diverticulosis 02/06/2010 07/08/2018 Closed fracture of dorsal (t horacic) vertebra without mention of spinal cord injury 11/19/2008 Closed fracture of sacrum an d coccyx without mention of spinal cord injury 05/31/2007 02/06/2010 Dyspareunia 05/03/2006 02/06/2010 Abnormal Papanicolaou smear of vagina and vaginal HPV 02/06/2010 Hives 10/01/2017 documented as of this encounter (statuses as of 09/02/2023) [facility] History of Past illness Narrative* Problem Noted Date Resolved Date 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 Hypovolemia 07/08/2018 07/09/2018 Last Assessment & Plan: resolved Generalized weakness 06/14/2018 06/19/2018 Last Assessment & Plan: x1 month prior to admission Suspect 06/18 #1; CT brain neg, no signs of infection Vitamin D low, supplementing orally GERD (gastroesophageal reflux disease) 8 07/08/2018 Obesity, Class I, BMI 30-34.9 E66.9 09/03/2017 07/08/2018 Primary osteoarthritis of fi rst carpometacarpal joint of right hand 08/05/2017 07/08/2018 Overview: Added automatically from request for surgery [id number] Open wound(s) (multiple) of unspecified site(s), without mention of complication 06/02/2012 10/01/2017 Chronic urticaria 03/03/2012 10/01/2017 Calcaneal spur 06/03/2010 10/01/2017 Diverticulosis 02/06/2010 07/08/2018 Closed fracture of dorsal (t horacic) vertebra without mention of spinal cord injury 11/19/2008 02/06/2010 Closed fracture of sacrum an d coccyx without mention of spinal cord injury 05/31/2007 02/06/2010 Dyspareunia 05/03/2006 02/06/2010 Abnormal Papanicolaou smear of vagina and vagina l HPV 02/06/2010 Hives 10/01/2017 documented as of this encounter (statuses as of 08/06/2021) [facility] History of Past illness Narrative* Problem Noted Date Resolved Date 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 Hypovolemia 07/08/2018 07/09/2018 Last Assessment & Plan: resolved Generalized weakness 06/14/2018 06/19/2018 Last Assessment & Plan: x1 month prior to admission Suspect 2/2 #1; CT brain neg, no signs of infection Vitamin D low, supplementing orally GERD (gastroesophageal reflux disease) 8 07/08/2018 Obesity, Class I, BMI 30-34.9 E66.9 09/03/2017 07/08/2018 Primary osteoarthritis of fi rst carpometacarpal joint of right hand 08/05/2017 07/08/2018 Overview: Added automatically from request for surgery [id number] Open wound(s) (multiple) of unspecified site(s), without mention of complication 06/02/2012 10/01/2017 Chronic urticaria 03/03/2012 10/01/2017 Calcaneal spur 06/03/2010 10/01/2017 Diverticulosis 02/06/2010 07/08/2018 Closed fracture of dorsal (t horacic) vertebra without mention of spinal cord injury 11/19/2008 02/06/2010 Closed fracture of sacrum an d coccyx without mention of spinal cord injury 05/31/2007 02/06/2010 Dyspareunia 05/03/2006 02/06/2010 Abnormal Papanicolaou smear of vagina and vagina l HPV 02/06/2010 Hives 10/01/2017 documented as of this encounter (statuses as of 08/12/2021) [facility] History of Past illness Narrative* Problem Noted Date Resolved Date 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 Hypovolemia 07/08/2018 07/09/2018 Last Assessment & Plan: resolved Generalized weakness 06/14/2018 06/19/2018 Last Assessment & Plan: x1 month prior to admission Suspect 2/2 #1; CT brain neg, no signs of infection Vitamin D low, supplementing orally GERD (gastroesophageal reflux disease) 8 07/08/2018 Obesity, Class I, BMI 30-34.9 E66.9 09/03/2017 07/08/2018 Primary osteoarthritis of fi rst carpometacarpal joint of right hand 08/05/2017 07/08/2018 Overview: Added automatically from request for surgery [id number] Open wound(s) (multiple) of unspecified site(s), without mention of complication 06/02/2012 10/01/2017 Chronic urticaria 03/03/2012 10/01/2017 Calcaneal spur 06/03/2010 10/01/2017 Diverticulosis 02/06/2010 07/08/2018 Closed fracture of dorsal (t horacic) vertebra without mention of spinal cord injury 11/19/2008 02/06/2010 Closed fracture of sacrum an d coccyx without mention of spinal cord injury 05/31/2007 02/06/2010 Dyspareunia 05/03/2006 02/06/2010 Abnormal Papanicolaou smear of vagina and vagina l HPV 02/06/2010 Hives 10/01/2017 documented as of this encounter (statuses as of 08/18/2021) [facility] History of Past illness Narrative* Problem Noted Date Resolved Date 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 Hypovolemia 07/08/2018 07/09/2018 Last Assessment & Plan: resolved Generalized weakness 06/14/2018 06/19/2018 Last Assessment & Plan: x1 month prior to admission Suspect 2/2 #1; CT brain neg, no signs of infection Vitamin D low, supplementing orally GERD (gastroesophageal reflux disease) 8 07/08/2018 Obesity, Class I, BMI 30-34.9 E66.9 09/03/2017 07/08/2018 Primary osteoarthritis of fi rst carpometacarpal joint of right hand 08/05/2017 07/08/2018 Overview: Added automatically from request for surgery [id number] Open wound(s) (multiple) of unspecified site(s), without mention of complication 06/02/2012 10/01/2017 Chronic urticaria 03/03/2012 10/01/2017 Calcaneal spur 06/03/2010 10/01/2017 Diverticulosis 02/06/2010 07/08/2018 Closed fracture of dorsal (t horacic) vertebra without mention of spinal cord injury 11/19/2008 02/06/2010 Closed fracture of sacrum an d coccyx without mention of spinal cord injury 05/31/2007 02/06/2010 Dyspareunia 05/03/2006 02/06/2010 Abnormal Papanicolaou smear of vagina and vagina l HPV 02/06/2010 Hives 10/01/2017 documented as of this encounter (statuses as of 11/05/2021) [facility] History of Past illness Narrative* Problem Noted Date Resolved Date 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 Hypovolemia 07/08/2018 07/09/2018 Last Assessment & Plan: resolved Generalized weakness 06/14/2018 06/19/2018 Last Assessment & Plan: x1 month prior to admission Suspect 2/2 #1; CT brain neg, no signs of infection Vitamin D low, supplementing orally GERD (gastroesophageal reflux disease) 8 07/08/2018 Obesity, Class I, BMI 30-34.9 E66.9 09/03/2017 07/08/2018 Primary osteoarthritis of fi rst carpometacarpal joint of right hand 08/05/2017 07/08/2018 Overview: Added automatically from request for surgery [id number] Open wound(s) (multiple) of unspecified site(s), without mention of complication 06/02/2012 10/01/2017 Chronic urticaria 03/03/2012 10/01/2017 Calcaneal spur 06/03/2010 10/01/2017 Diverticulosis 02/06/2010 07/08/2018 Closed fracture of dorsal (t horacic) vertebra without mention of spinal cord injury 11/19/2008 02/06/2010 Closed fracture of sacrum an d coccyx without mention of spinal cord injury 05/31/2007 02/06/2010 Dyspareunia 05/03/2006 02/06/2010 Abnormal Papanicolaou smear of vagina and vagina l HPV 02/06/2010 Hives 10/01/2017 documented as of this encounter (statuses as of 11/19/2021) [facility] History of Past illness Narrative* Problem Noted Date Resolved Date 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 Hypovolemia 07/08/2018 07/09/2018 Last Assessment & Plan: resolved Generalized weakness 06/14/2018 06/19/2018 Last Assessment & Plan: x1 month prior to admission Suspect 2/2 #1; CT brain neg, no signs of infection Vitamin D low, supplementing orally GERD (gastroesophageal reflux disease) 8 07/08/2018 Obesity, Class I, BMI 30-34.9 E66.9 09/03/2017 07/08/2018 Primary osteoarthritis of fi rst carpometacarpal joint of right hand 08/05/2017 07/08/2018 Overview: Added automatically from request for surgery [id number] Open wound(s) (multiple) of unspecified site(s), without mention of complication 06/02/2012 10/01/2017 Chronic urticaria 03/03/2012 10/01/2017 Calcaneal spur 06/03/2010 10/01/2017 Diverticulosis 02/06/2010 07/08/2018 Closed fracture of dorsal (t horacic) vertebra without mention of spinal cord injury 11/19/2008 02/06/2010 Closed fracture of sacrum an d coccyx without mention of spinal cord injury 05/31/2007 02/06/2010 Dyspareunia 05/03/2006 02/06/2010 Abnormal Papanicolaou smear of vagina and vagina l HPV 02/06/2010 Hives 10/01/2017 documented as of this encounter (statuses as of 11/26/2021) [facility] History of Past illness Narrative* Problem Noted Date Resolved Date 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 Hypovolemia 07/08/2018 07/09/2018 Last Assessment & Plan: resolved Generalized weakness 06/14/2018 06/19/2018 Last Assessment & Plan: x1 month prior to admission Suspect 2/2 #1; CT brain neg, no signs of infection Vitamin D low, supplementing orally GERD (gastroesophageal reflux disease) 8 07/08/2018 Obesity, Class I, BMI 30-34.9 E66.9 09/03/2017 07/08/2018 Primary osteoarthritis of fi rst carpometacarpal joint of right hand 08/05/2017 07/08/2018 Overview: Added automatically from request for surgery [id number] Open wound(s) (multiple) of unspecified site(s), without mention of complication 06/02/2012 10/01/2017 Chronic urticaria 03/03/2012 10/01/2017 Calcaneal spur 06/03/2010 10/01/2017 Diverticulosis 02/06/2010 07/08/2018 Closed fracture of dorsal (t horacic) vertebra without mention of spinal cord injury 11/19/2008 02/06/2010 Closed fracture of sacrum an d coccyx without mention of spinal cord injury 05/31/2007 02/06/2010 Dyspareunia 05/03/2006 02/06/2010 Abnormal Papanicolaou smear of vagina and vagina l HPV 02/06/2010 Hives 10/01/2017 documented as of this encounter (statuses as of 11/26/2021) [facility] History of Past illness Narrative* Problem Noted Date Resolved Date 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 Hypovolemia 07/08/2018 07/09/2018 Last Assessment & Plan: resolved Generalized weakness 06/14/2018 06/19/2018 Last Assessment & Plan: x1 month prior to admission Suspect 2/2 #1; CT brain neg, no signs of infection Vitamin D low, supplementing orally GERD (gastroesophageal reflux disease) 8 07/08/2018 Obesity, Class I, BMI 30-34.9 E66.9 09/03/2017 07/08/2018 Primary osteoarthritis of fi rst carpometacarpal joint of right hand 08/05/2017 07/08/2018 Overview: Added automatically from request for surgery [id number] Open wound(s) (multiple) of unspecified site(s), without mention of complication 06/02/2012 10/01/2017 Chronic urticaria 03/03/2012 10/01/2017 Calcaneal spur 06/03/2010 10/01/2017 Diverticulosis 02/06/2010 07/08/2018 Closed fracture of dorsal (t horacic) vertebra without mention of spinal cord injury 11/19/2008 02/06/2010 Closed fracture of sacrum an d coccyx without mention of spinal cord injury 05/31/2007 02/06/2010 Dyspareunia 05/03/2006 02/06/2010 Abnormal Papanicolaou smear of vagina and vagina l HPV 02/06/2010 Hives 10/01/2017 documented as of this encounter (statuses as of 12/02/2021) [facility] History of Past illness Narrative* Problem Noted Date Resolved Date 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 Hypovolemia 07/08/2018 07/09/2018 Last Assessment & Plan: resolved Generalized weakness 06/14/2018 06/19/2018 Last Assessment & Plan: x1 month prior to admission Suspect 2/2 #1; CT brain neg, no signs of infection Vitamin D low, supplementing orally GERD (gastroesophageal reflux disease) 8 07/08/2018 Obesity, Class I, BMI 30-34.9 E66.9 09/03/2017 07/08/2018 Primary osteoarthritis of fi rst carpometacarpal joint of right hand 08/05/2017 07/08/2018 Overview: Added automatically from request for surgery [id number] Open wound(s) (multiple) of unspecified site(s), without mention of complication 06/02/2012 10/01/2017 Chronic urticaria 03/03/2012 10/01/2017 Calcaneal spur 06/03/2010 10/01/2017 Diverticulosis 02/06/2010 07/08/2018 Closed fracture of dorsal (t horacic) vertebra without mention of spinal cord injury 11/19/2008 02/06/2010 Closed fracture of sacrum an d coccyx without mention of spinal cord injury 05/31/2007 02/06/2010 Dyspareunia 05/03/2006 02/06/2010 Abnormal Papanicolaou smear of vagina and vagina l HPV 02/06/2010 Hives 10/01/2017 documented as of this encounter (statuses as of 12/12/2021) [facility] History of Past illness Narrative* Problem Noted Date Resolved Date 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 Hypovolemia 07/08/2018 07/09/2018 Last Assessment & Plan: resolved Generalized weakness 06/14/2018 06/19/2018 Last Assessment & Plan: x1 month prior to admission Suspect 2/2 #1; CT brain neg, no signs of infection Vitamin D low, supplementing orally GERD (gastroesophageal reflux disease) 8 07/08/2018 Obesity, Class I, BMI 30-34.9 E66.9 09/03/2017 07/08/2018 Primary osteoarthritis of fi rst carpometacarpal joint of right hand 08/05/2017 07/08/2018 Overview: Added automatically from request for surgery [id number] Open wound(s) (multiple) of unspecified site(s), without mention of complication 06/02/2012 10/01/2017 Chronic urticaria 03/03/2012 10/01/2017 Calcaneal spur 06/03/2010 10/01/2017 Diverticulosis 02/06/2010 07/08/2018 Closed fracture of dorsal (t horacic) vertebra without mention of spinal cord injury 11/19/2008 02/06/2010 Closed fracture of sacrum an d coccyx without mention of spinal cord injury 05/31/2007 02/06/2010 Dyspareunia 05/03/2006 02/06/2010 Abnormal Papanicolaou smear of vagina and vagina l HPV 02/06/2010 Hives 10/01/2017 documented as of this encounter (statuses as of 12/19/2021) [facility] History of Past illness Narrative* Problem Noted Date Resolved Date 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 Hypovolemia 07/08/2018 07/09/2018 Last Assessment & Plan: resolved Generalized weakness 06/14/2018 06/19/2018 Last Assessment & Plan: x1 month prior to admission Suspect 2 #1; CT brain neg, no signs of infection Vitamin D low, supplementing orally GERD (gastroesophageal reflux disease) 8 07/08/2018 Obesity, Class I, BMI 30-34.9 E66.9 09/03/2017 07/08/2018 Primary osteoarthritis of fi rst carpometacarpal joint of right hand 08/05/2017 07/08/2018 Overview: Added automatically from request for surgery [id number] Open wound(s) (multiple) of unspecified site(s), without mention of complication 06/02/2012 10/01/2017 Chronic urticaria 03/03/2012 10/01/2017 Calcaneal spur 06/03/2010 10/01/2017 Diverticulosis 02/06/2010 07/08/2018 Closed fracture of dorsal (t horacic) vertebra without mention of spinal cord injury 11/19/2008 02/06/2010 Closed fracture of sacrum an d coccyx without mention of spinal cord injury 05/31/2007 02/06/2010 Dyspareunia 05/03/2006 02/06/2010 Abnormal Papanicolaou smear of vagina and vagina l HPV 02/06/2010 Hives 10/01/2017 documented as of this encounter (statuses as of 12/22/2021) [facility] History of Past illness Narrative* Problem Noted Date Resolved Date 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 Hypovolemia 07/08/2018 07/09/2018 Last Assessment & Plan: resolved Generalized weakness 06/14/2018 06/19/2018 Last Assessment & Plan: x1 month prior to admission Suspect 2/2 #1; CT brain neg, no signs of infection Vitamin D low, supplementing orally GERD (gastroesophageal reflux disease) 8 07/08/2018 Obesity, Class I, BMI 30-34.9 E66.9 09/03/2017 07/08/2018 Primary osteoarthritis of fi rst carpometacarpal joint of right hand 08/05/2017 07/08/2018 Overview: Added automatically from request for surgery [id number] Open wound(s) (multiple) of unspecified site(s), without mention of complication 06/02/2012 10/01/2017 Chronic urticaria 03/03/2012 10/01/2017 Calcaneal spur 06/03/2010 10/01/2017 Diverticulosis 02/06/2010 07/08/2018 Closed fracture of dorsal (t horacic) vertebra without mention of spinal cord injury 11/19/2008 02/06/2010 Closed fracture of sacrum an d coccyx without mention of spinal cord injury 05/31/2007 02/06/2010 Dyspareunia 05/03/2006 02/06/2010 Abnormal Papanicolaou smear of vagina and vagina l HPV 02/06/2010 Hives 10/01/2017 documented as of this encounter (statuses as of 12/25/2021) [facility] History of Past illness Narrative* Problem Noted Date Resolved Date 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 Hypovolemia 07/08/2018 07/09/2018 Last Assessment & Plan: resolved Generalized weakness 06/14/2018 06/19/2018 Last Assessment & Plan: x1 month prior to admission Suspect 2/2 #1; CT brain neg, no signs of infection Vitamin D low, supplementing orally GERD (gastroesophageal reflux disease) 8 07/08/2018 Obesity, Class I, BMI 30-34.9 E66.9 09/03/2017 07/08/2018 Primary osteoarthritis of fi rst carpometacarpal joint of right hand 08/05/2017 07/08/2018 Overview: Added automatically from request for surgery [id number] Open wound(s) (multiple) of unspecified site(s), without mention of complication 06/02/2012 10/01/2017 Chronic urticaria 03/03/2012 10/01/2017 Calcaneal spur 06/03/2010 10/01/2017 Diverticulosis 02/06/2010 07/08/2018 Closed fracture of dorsal (t horacic) vertebra without mention of spinal cord injury 11/19/2008 02/06/2010 Closed fracture of sacrum an d coccyx without mention of spinal cord injury 05/31/2007 02/06/2010 Dyspareunia 05/03/2006 02/06/2010 Abnormal Papanicolaou smear of vagina and vagina l HPV 02/06/2010 Hives 10/01/2017 documented as of this encounter (statuses as of 02/13/2022) [facility] History of Past illness Narrative* Problem Noted Date Resolved Date 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 Hypovolemia 07/08/2018 07/09/2018 Last Assessment & Plan: resolved Generalized weakness 06/14/2018 06/19/2018 Last Assessment & Plan: x1 month prior to admission Suspect 2/2 #1; CT brain neg, no signs of infection Vitamin D low, supplementing orally GERD (gastroesophageal reflux disease) 8 07/08/2018 Obesity, Class I, BMI 30-34.9 E66.9 09/03/2017 07/08/2018 Primary osteoarthritis of fi rst carpometacarpal joint of right hand 08/05/2017 07/08/2018 Overview: Added automatically from request for surgery [id number] Open wound(s) (multiple) of unspecified site(s), without mention of complication 06/02/2012 10/01/2017 Chronic urticaria 03/03/2012 10/01/2017 Calcaneal spur 06/03/2010 10/01/2017 Diverticulosis 02/06/2010 07/08/2018 Closed fracture of dorsal (t horacic) vertebra without mention of spinal cord injury 11/19/2008 02/06/2010 Closed fracture of sacrum an d coccyx without mention of spinal cord injury 05/31/2007 02/06/2010 Dyspareunia 05/03/2006 02/06/2010 Abnormal Papanicolaou smear of vagina and vagina l HPV 02/06/2010 Hives 10/01/2017 documented as of this encounter (statuses as of 02/17/2022) [facility] History of Past illness Narrative* Problem Noted Date Resolved Date 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 Hypovolemia 07/08/2018 07/09/2018 Last Assessment & Plan: resolved Generalized weakness 06/14/2018 06/19/2018 Last Assessment & Plan: x1 month prior to admission Suspect 2 #1; CT brain neg, no signs of infection Vitamin D low, supplementing orally GERD (gastroesophageal reflux disease) 8 07/08/2018 Obesity, Class I, BMI 30-34.9 E66.9 09/03/2017 07/08/2018 Primary osteoarthritis of fi rst carpometacarpal joint of right hand 08/05/2017 07/08/2018 Overview: Added automatically from request for surgery [id number] Open wound(s) (multiple) of unspecified site(s), without mention of complication 06/02/2012 10/01/2017 Chronic urticaria 03/03/2012 10/01/2017 Calcaneal spur 06/03/2010 10/01/2017 Diverticulosis 02/06/2010 07/08/2018 Closed fracture of dorsal (t horacic) vertebra without mention of spinal cord injury 11/19/2008 02/06/2010 Closed fracture of sacrum an d coccyx without mention of spinal cord injury 05/31/2007 02/06/2010 Dyspareunia 05/03/2006 02/06/2010 Abnormal Papanicolaou smear of vagina and vagina l HPV 02/06/2010 Hives 10/01/2017 documented as of this encounter (statuses as of 02/20/2022) [facility]03-03-2019 History of Past illness Narrative* Problem Noted Date Resolved Date 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 Hypovolemia 07/08/2018 07/09/2018 Last Assessment & Plan: resolved Generalized weakness 06/14/2018 06/19/2018 Last Assessment & Plan: x1 month prior to admission Suspect 2/2 #1; CT brain neg, no signs of infection Vitamin D low, supplementing orally GERD (gastroesophageal reflux disease) 8 07/08/2018 Obesity, Class I, BMI 30-34.9 E66.9 09/03/2017 07/08/2018 Primary osteoarthritis of fi rst carpometacarpal joint of right hand 08/05/2017 07/08/2018 Overview: Added automatically from request for surgery [id number] Open wound(s) (multiple) of unspecified site(s), without mention of complication 06/02/2012 10/01/2017 Chronic urticaria 03/03/2012 10/01/2017 Calcaneal spur 06/03/2010 10/01/2017 Diverticulosis 02/06/2010 07/08/2018 Closed fracture of dorsal (t horacic) vertebra without mention of spinal cord injury 11/19/2008 02/06/2010 Closed fracture of sacrum an d coccyx without mention of spinal cord injury 05/31/2007 02/06/2010 Dyspareunia 05/03/2006 02/06/2010 Abnormal Papanicolaou smear of vagina and vagina l HPV 02/06/2010 Hives 10/01/2017 documented as of this encounter (statuses as of 02/20/2022) [facility]03[facility]2019 History of Past illness Narrative* Problem Noted Date Resolved Date 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 Hypovolemia 07/08/2018 07/09/2018 Last Assessment & Plan: resolved Generalized weakness 06/14/2018 06/19/2018 Last Assessment & Plan: x1 month prior to admission Suspect 2/2 #1; CT brain neg, no signs of infection Vitamin D low, supplementing orally GERD (gastroesophageal reflux disease) 8 07/08/2018 Obesity, Class I, BMI 30-34.9 E66.9 09/03/2017 07/08/2018 Primary osteoarthritis of fi rst carpometacarpal joint of right hand 08/05/2017 07/08/2018 Overview: Added automatically from request for surgery [id number] Open wound(s) (multiple) of unspecified site(s), without mention of complication 06/02/2012 10/01/2017 Chronic urticaria 03/03/2012 10/01/2017 Calcaneal spur 06/03/2010 10/01/2017 Diverticulosis 02/06/2010 07/08/2018 Closed fracture of dorsal (t horacic) vertebra without mention of spinal cord injury 11/19/2008 02/06/2010 Closed fracture of sacrum an d coccyx without mention of spinal cord injury 05/31/2007 02/06/2010 Dyspareunia 05/03/2006 02/06/2010 Abnormal Papanicolaou smear of vagina and vagina l HPV 02/06/2010 Hives 10/01/2017 documented as of this encounter (statuses as of 02/23/2022) [facility]2019 History of Past illness Narrative* Problem Noted Date Resolved Date 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 Hypovolemia 07/08/2018 07/09/2018 Last Assessment & Plan: resolved Generalized weakness 06/14/2018 06/19/2018 Last Assessment & Plan: x1 month prior to admission Suspect 2/2 #1; CT brain neg, no signs of infection Vitamin D low, supplementing orally GERD (gastroesophageal reflux disease) 8 07/08/2018 Obesity, Class I, BMI 30-34.9 E66.9 09/03/2017 07/08/2018 Primary osteoarthritis of fi rst carpometacarpal joint of right hand 08/05/2017 07/08/2018 Overview: Added automatically from request for surgery [id number] Open wound(s) (multiple) of unspecified site(s), without mention of complication 06/02/2012 10/01/2017 Chronic urticaria 03/03/2012 10/01/2017 Calcaneal spur 06/03/2010 10/01/2017 Diverticulosis 02/06/2010 07/08/2018 Closed fracture of dorsal (t horacic) vertebra without mention of spinal cord injury 11/19/2008 02/06/2010 Closed fracture of sacrum an d coccyx without mention of spinal cord injury 05/31/2007 02/06/2010 Dyspareunia 05/03/2006 02/06/2010 Abnormal Papanicolaou smear of vagina and vagina l HPV 02/06/2010 Hives 10/01/2017 documented as of this encounter (statuses as of 02/23/2022) [facility]2019 History of Past illness Narrative* Problem Noted Date Resolved Date 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 Hypovolemia 07/08/2018 07/09/2018 Last Assessment & Plan: resolved Generalized weakness 06/14/2018 06/19/2018 Last Assessment & Plan: x1 month prior to admission Suspect 2/ #1; CT brain neg, no signs of infection Vitamin D low, supplementing orally GERD (gastroesophageal reflux disease) 8 07/08/2018 Obesity, Class I, BMI 30-34.9 E66.9 09/03/2017 07/08/2018 Primary osteoarthritis of fi rst carpometacarpal joint of right hand 08/05/2017 07/08/2018 Overview: Added automatically from request for surgery [id number] Open wound(s) (multiple) of unspecified site(s), without mention of complication 06/02/2012 10/01/2017 Chronic urticaria 03/03/2012 10/01/2017 Calcaneal spur 06/03/2010 10/01/2017 Diverticulosis 02/06/2010 07/08/2018 Closed fracture of dorsal (t horacic) vertebra without mention of spinal cord injury 11/19/2008 02/06/2010 Closed fracture of sacrum an d coccyx without mention of spinal cord injury 05/31/2007 02/06/2010 Dyspareunia 05/03/2006 02/06/2010 Abnormal Papanicolaou smear of vagina and vagina l HPV 02/06/2010 Hives 10/01/2017 documented as of this encounter (statuses as of 03/04/2022) [facility]2019 History of Past illness Narrative* Problem Noted Date Resolved Date 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 Hypovolemia 07/08/2018 07/09/2018 Last Assessment & Plan: resolved Generalized weakness 06/14/2018 06/19/2018 Last Assessment & Plan: x1 month prior to admission Suspect 2/2 #1; CT brain neg, no signs of infection Vitamin D low, supplementing orally GERD (gastroesophageal reflux disease) 8 07/08/2018 Obesity, Class I, BMI 30-34.9 E66.9 09/03/2017 07/08/2018 Primary osteoarthritis of fi rst carpometacarpal joint of right hand 08/05/2017 07/08/2018 Overview: Added automatically from request for surgery [id number] Open wound(s) (multiple) of unspecified site(s), without mention of complication 06/02/2012 10/01/2017 Chronic urticaria 03/03/2012 10/01/2017 Calcaneal spur 06/03/2010 10/01/2017 Diverticulosis 02/06/2010 07/08/2018 Closed fracture of dorsal (t horacic) vertebra without mention of spinal cord injury 11/19/2008 02/06/2010 Closed fracture of sacrum an d coccyx without mention of spinal cord injury 05/31/2007 02/06/2010 Dyspareunia 05/03/2006 02/06/2010 Abnormal Papanicolaou smear of vagina and vagina l HPV 02/06/2010 Hives 10/01/2017 documented as of this encounter (statuses as of 03/18/2022) [facility]03[facility]2019 History of Past illness Narrative* Problem Noted Date Resolved Date 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 Hypovolemia 07/08/2018 07/09/2018 Last Assessment & Plan: resolved Generalized weakness 06/14/2018 06/19/2018 Last Assessment & Plan: x1 month prior to admission Suspect 2/2 #1; CT brain neg, no signs of infection Vitamin D low, supplementing orally GERD (gastroesophageal reflux disease) 8 07/08/2018 Obesity, Class I, BMI 30-34.9 E66.9 09/03/2017 07/08/2018 Primary osteoarthritis of fi rst carpometacarpal joint of right hand 08/05/2017 07/08/2018 Overview: Added automatically from request for surgery [id number] Open wound(s) (multiple) of unspecified site(s), without mention of complication 06/02/2012 10/01/2017 Chronic urticaria 03/03/2012 10/01/2017 Calcaneal spur 06/03/2010 10/01/2017 Diverticulosis 02/06/2010 07/08/2018 Closed fracture of dorsal (t horacic) vertebra without mention of spinal cord injury 11/19/2008 02/06/2010 Closed fracture of sacrum an d coccyx without mention of spinal cord injury 05/31/2007 02/06/2010 Dyspareunia 05/03/2006 02/06/2010 Abnormal Papanicolaou smear of vagina and vagina l HPV 02/06/2010 Hives 10/01/2017 documented as of this encounter (statuses as of 03/23/2022) [facility]2019 History of Past illness Narrative* Problem Noted Date Resolved Date 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 Hypovolemia 07/08/2018 07/09/2018 Last Assessment & Plan: resolved Generalized weakness 06/14/2018 06/19/2018 Last Assessment & Plan: x1 month prior to admission Suspect 2/ #1; CT brain neg, no signs of infection Vitamin D low, supplementing orally GERD (gastroesophageal reflux disease) 8 07/08/2018 Obesity, Class I, BMI 30-34.9 E66.9 09/03/2017 07/08/2018 Primary osteoarthritis of fi rst carpometacarpal joint of right hand 08/05/2017 07/08/2018 Overview: Added automatically from request for surgery [id number] Open wound(s) (multiple) of unspecified site(s), without mention of complication 06/02/2012 10/01/2017 Chronic urticaria 03/03/2012 10/01/2017 Calcaneal spur 06/03/2010 10/01/2017 Diverticulosis 02/06/2010 07/08/2018 Closed fracture of dorsal (t horacic) vertebra without mention of spinal cord injury 11/19/2008 02/06/2010 Closed fracture of sacrum an d coccyx without mention of spinal cord injury 05/31/2007 02/06/2010 Dyspareunia 05/03/2006 02/06/2010 Abnormal Papanicolaou smear of vagina and vagina l HPV 02/06/2010 Hives 10/01/2017 documented as of this encounter (statuses as of 03/25/2022) [facility]2019 History of Past illness Narrative* Problem Noted Date Resolved Date 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 Hypovolemia 07/08/2018 07/09/2018 Last Assessment & Plan: resolved Generalized weakness 06/14/2018 06/19/2018 Last Assessment & Plan: x1 month prior to admission Suspect 2/ #1; CT brain neg, no signs of infection Vitamin D low, supplementing orally GERD (gastroesophageal reflux disease) 8 07/08/2018 Obesity, Class I, BMI 30-34.9 E66.9 09/03/2017 07/08/2018 Primary osteoarthritis of fi rst carpometacarpal joint of right hand 08/05/2017 07/08/2018 Overview: Added automatically from request for surgery [id number] Open wound(s) (multiple) of unspecified site(s), without mention of complication 06/02/2012 10/01/2017 Chronic urticaria 03/03/2012 10/01/2017 Calcaneal spur 06/03/2010 10/01/2017 Diverticulosis 02/06/2010 07/08/2018 Closed fracture of dorsal (t horacic) vertebra without mention of spinal cord injury 11/19/2008 02/06/2010 Closed fracture of sacrum an d coccyx without mention of spinal cord injury 05/31/2007 02/06/2010 Dyspareunia 05/03/2006 02/06/2010 Abnormal Papanicolaou smear of vagina and vagina l HPV 02/06/2010 Hives 10/01/2017 documented as of this encounter (statuses as of 03/25/2022) [facility]2019 History of Past illness Narrative* Problem Noted Date Resolved Date 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 Hypovolemia 07/08/2018 07/09/2018 Last Assessment & Plan: resolved Generalized weakness 06/14/2018 06/19/2018 Last Assessment & Plan: x1 month prior to admission Suspect 06/18 #1; CT brain neg, no signs of infection Vitamin D low, supplementing orally GERD (gastroesophageal reflux disease) 8 07/08/2018 Obesity, Class I, BMI 30-34.9 E66.9 09/03/2017 07/08/2018 Primary osteoarthritis of fi rst carpometacarpal joint of right hand 08/05/2017 07/08/2018 Overview: Added automatically from request for surgery [id number] Open wound(s) (multiple) of unspecified site(s), without mention of complication 06/02/2012 10/01/2017 Chronic urticaria 03/03/2012 10/01/2017 Calcaneal spur 06/03/2010 10/01/2017 Diverticulosis 02/06/2010 07/08/2018 Closed fracture of dorsal (t horacic) vertebra without mention of spinal cord injury 11/19/2008 02/06/2010 Closed fracture of sacrum an d coccyx without mention of spinal cord injury 05/31/2007 02/06/2010 Dyspareunia 05/03/2006 02/06/2010 Abnormal Papanicolaou smear of vagina and vagina l HPV 02/06/2010 Hives 10/01/2017 documented as of this encounter (statuses as of 03/30/2022) [facility]2019 History of Past illness Narrative* Problem Noted Date Resolved Date 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 Hypovolemia 07/08/2018 07/09/2018 Last Assessment & Plan: resolved Generalized weakness 06/14/2018 06/19/2018 Last Assessment & Plan: x1 month prior to admission Suspect 2/2 #1; CT brain neg, no signs of infection Vitamin D low, supplementing orally GERD (gastroesophageal reflux disease) 8 07/08/2018 Obesity, Class I, BMI 30-34.9 E66.9 09/03/2017 07/08/2018 Primary osteoarthritis of fi rst carpometacarpal joint of right hand 08/05/2017 07/08/2018 Overview: Added automatically from request for surgery [id number] Open wound(s) (multiple) of unspecified site(s), without mention of complication 06/02/2012 10/01/2017 Chronic urticaria 03/03/2012 10/01/2017 Calcaneal spur 06/03/2010 10/01/2017 Diverticulosis 02/06/2010 07/08/2018 Closed fracture of dorsal (t horacic) vertebra without mention of spinal cord injury 11/19/2008 02/06/2010 Closed fracture of sacrum an d coccyx without mention of spinal cord injury 05/31/2007 02/06/2010 Dyspareunia 05/03/2006 02/06/2010 Abnormal Papanicolaou smear of vagina and vagina l HPV 02/06/2010 Hives 10/01/2017 documented as of this encounter (statuses as of 04/01/2022) [facility]2019 History of Past illness Narrative* Problem Noted Date Resolved Date 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 Hypovolemia 07/08/2018 07/09/2018 Last Assessment & Plan: resolved Generalized weakness 06/14/2018 06/19/2018 Last Assessment & Plan: x1 month prior to admission Suspect 2/2 #1; CT brain neg, no signs of infection Vitamin D low, supplementing orally GERD (gastroesophageal reflux disease) 8 07/08/2018 Obesity, Class I, BMI 30-34.9 E66.9 09/03/2017 07/08/2018 Primary osteoarthritis of fi rst carpometacarpal joint of right hand 08/05/2017 07/08/2018 Overview: Added automatically from request for surgery [id number] Open wound(s) (multiple) of unspecified site(s), without mention of complication 06/02/2012 10/01/2017 Chronic urticaria 03/03/2012 10/01/2017 Calcaneal spur 06/03/2010 10/01/2017 Diverticulosis 02/06/2010 07/08/2018 Closed fracture of dorsal (t horacic) vertebra without mention of spinal cord injury 11/19/2008 02/06/2010 Closed fracture of sacrum an d coccyx without mention of spinal cord injury 05/31/2007 02/06/2010 Dyspareunia 05/03/2006 02/06/2010 Abnormal Papanicolaou smear of vagina and vagina l HPV 02/06/2010 Hives 10/01/2017 documented as of this encounter (statuses as of 04/02/2022) [facility]2019 History of Past illness Narrative* Problem Noted Date Resolved Date 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 Hypovolemia 07/08/2018 07/09/2018 Last Assessment & Plan: resolved Generalized weakness 06/14/2018 06/19/2018 Last Assessment & Plan: x1 month prior to admission Suspect 2/2 #1; CT brain neg, no signs of infection Vitamin D low, supplementing orally GERD (gastroesophageal reflux disease) 8 07/08/2018 Obesity, Class I, BMI 30-34.9 E66.9 09/03/2017 07/08/2018 Primary osteoarthritis of fi rst carpometacarpal joint of right hand 08/05/2017 07/08/2018 Overview: Added automatically from request for surgery [id number] Open wound(s) (multiple) of unspecified site(s), without mention of complication 06/02/2012 10/01/2017 Chronic urticaria 03/03/2012 10/01/2017 Calcaneal spur 06/03/2010 10/01/2017 Diverticulosis 02/06/2010 07/08/2018 Closed fracture of dorsal (t horacic) vertebra without mention of spinal cord injury 11/19/2008 02/06/2010 Closed fracture of sacrum an d coccyx without mention of spinal cord injury 05/31/2007 02/06/2010 Dyspareunia 05/03/2006 02/06/2010 Abnormal Papanicolaou smear of vagina and vagina l HPV 02/06/2010 Hives 10/01/2017 documented as of this encounter (statuses as of 04/07/2022) [facility]2019 History of Past illness Narrative* Problem Noted Date Resolved Date 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 Hypovolemia 07/08/2018 07/09/2018 Last Assessment & Plan: resolved Generalized weakness 06/14/2018 06/19/2018 Last Assessment & Plan: x1 month prior to admission Suspect 06/18 #1; CT brain neg, no signs of infection Vitamin D low, supplementing orally GERD (gastroesophageal reflux disease) 8 07/08/2018 Obesity, Class I, BMI 30-34.9 E66.9 09/03/2017 07/08/2018 Primary osteoarthritis of fi rst carpometacarpal joint of right hand 08/05/2017 07/08/2018 Overview: Added automatically from request for surgery [id number] Open wound(s) (multiple) of unspecified site(s), without mention of complication 06/02/2012 10/01/2017 Chronic urticaria 03/03/2012 10/01/2017 Calcaneal spur 06/03/2010 10/01/2017 Diverticulosis 02/06/2010 07/08/2018 Closed fracture of dorsal (t horacic) vertebra without mention of spinal cord injury 11/19/2008 02/06/2010 Closed fracture of sacrum an d coccyx without mention of spinal cord injury 05/31/2007 02/06/2010 Dyspareunia 05/03/2006 02/06/2010 Abnormal Papanicolaou smear of vagina and vagina l HPV 02/06/2010 Hives 10/01/2017 documented as of this encounter (statuses as of 04/08/2022) [facility] History of Past illness Narrative* Problem Noted Date Resolved Date 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 Hypovolemia 07/08/2018 07/09/2018 Last Assessment & Plan: resolved Generalized weakness 06/14/2018 06/19/2018 Last Assessment & Plan: x1 month prior to admission Suspect 2/2 #1; CT brain neg, no signs of infection Vitamin D low, supplementing orally GERD (gastroesophageal reflux disease) 8 07/08/2018 Obesity, Class I, BMI 30-34.9 E66.9 09/03/2017 07/08/2018 Primary osteoarthritis of fi rst carpometacarpal joint of right hand 08/05/2017 07/08/2018 Overview: Added automatically from request for surgery [id number] Open wound(s) (multiple) of unspecified site(s), without mention of complication 06/02/2012 10/01/2017 Chronic urticaria 03/03/2012 10/01/2017 Calcaneal spur 06/03/2010 10/01/2017 Diverticulosis 02/06/2010 07/08/2018 Closed fracture of dorsal (t horacic) vertebra without mention of spinal cord injury 11/19/2008 02/06/2010 Closed fracture of sacrum an d coccyx without mention of spinal cord injury 05/31/2007 02/06/2010 Dyspareunia 05/03/2006 02/06/2010 Abnormal Papanicolaou smear of vagina and vagina l HPV 02/06/2010 Hives 10/01/2017 documented as of this encounter (statuses as of 04/13/2022) [facility] History of Past illness Narrative* Problem Noted Date Resolved Date 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 Hypovolemia 07/08/2018 07/09/2018 Last Assessment & Plan: resolved Generalized weakness 06/14/2018 06/19/2018 Last Assessment & Plan: x1 month prior to admission Suspect 2/2 #1; CT brain neg, no signs of infection Vitamin D low, supplementing orally GERD (gastroesophageal reflux disease) 8 07/08/2018 Obesity, Class I, BMI 30-34.9 E66.9 09/03/2017 07/08/2018 Primary osteoarthritis of fi rst carpometacarpal joint of right hand 08/05/2017 07/08/2018 Overview: Added automatically from request for surgery [id number] Open wound(s) (multiple) of unspecified site(s), without mention of complication 06/02/2012 10/01/2017 Chronic urticaria 03/03/2012 10/01/2017 Calcaneal spur 06/03/2010 10/01/2017 Diverticulosis 02/06/2010 07/08/2018 Closed fracture of dorsal (t horacic) vertebra without mention of spinal cord injury 11/19/2008 02/06/2010 Closed fracture of sacrum an d coccyx without mention of spinal cord injury 05/31/2007 02/06/2010 Dyspareunia 05/03/2006 02/06/2010 Abnormal Papanicolaou smear of vagina and vagina l HPV 02/06/2010 Hives 10/01/2017 documented as of this encounter (statuses as of 04/17/2022) [facility] History of Past illness Narrative* Problem Noted Date Resolved Date 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 Hypovolemia 07/08/2018 07/09/2018 Last Assessment & Plan: resolved Generalized weakness 06/14/2018 06/19/2018 Last Assessment & Plan: x1 month prior to admission Suspect 2/2 #1; CT brain neg, no signs of infection Vitamin D low, supplementing orally GERD (gastroesophageal reflux disease) 8 07/08/2018 Obesity, Class I, BMI 30-34.9 E66.9 09/03/2017 07/08/2018 Primary osteoarthritis of fi rst carpometacarpal joint of right hand 08/05/2017 07/08/2018 Overview: Added automatically from request for surgery [id number] Open wound(s) (multiple) of unspecified site(s), without mention of complication 06/02/2012 10/01/2017 Chronic urticaria 03/03/2012 10/01/2017 Calcaneal spur 06/03/2010 10/01/2017 Diverticulosis 02/06/2010 07/08/2018 Closed fracture of dorsal (t horacic) vertebra without mention of spinal cord injury 11/19/2008 02/06/2010 Closed fracture of sacrum an d coccyx without mention of spinal cord injury 05/31/2007 02/06/2010 Dyspareunia 05/03/2006 02/06/2010 Abnormal Papanicolaou smear of vagina and vagina l HPV 02/06/2010 Hives 10/01/2017 documented as of this encounter (statuses as of 04/21/2022) [facility] History of Past illness Narrative* Problem Noted Date Resolved Date 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 Hypovolemia 07/08/2018 07/09/2018 Last Assessment & Plan: resolved Generalized weakness 06/14/2018 06/19/2018 Last Assessment & Plan: x1 month prior to admission Suspect 2/ #1; CT brain neg, no signs of infection Vitamin D low, supplementing orally GERD (gastroesophageal reflux disease) 8 07/08/2018 Obesity, Class I, BMI 30-34.9 E66.9 09/03/2017 07/08/2018 Primary osteoarthritis of fi rst carpometacarpal joint of right hand 08/05/2017 07/08/2018 Overview: Added automatically from request for surgery [id number] Open wound(s) (multiple) of unspecified site(s), without mention of complication 06/02/2012 10/01/2017 Chronic urticaria 03/03/2012 10/01/2017 Calcaneal spur 06/03/2010 10/01/2017 Diverticulosis 02/06/2010 07/08/2018 Closed fracture of dorsal (t horacic) vertebra without mention of spinal cord injury 11/19/2008 02/06/2010 Closed fracture of sacrum an d coccyx without mention of spinal cord injury 05/31/2007 02/06/2010 Dyspareunia 05/03/2006 02/06/2010 Abnormal Papanicolaou smear of vagina and vagina l HPV 02/06/2010 Hives 10/01/2017 documented as of this encounter (statuses as of 05/25/2022) [facility] History of Past illness Narrative* Problem Noted Date Resolved Date 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 Hypovolemia 07/08/2018 07/09/2018 Last Assessment & Plan: resolved Generalized weakness 06/14/2018 06/19/2018 Last Assessment & Plan: x1 month prior to admission Suspect 2/2 #1; CT brain neg, no signs of infection Vitamin D low, supplementing orally GERD (gastroesophageal reflux disease) 8 07/08/2018 Obesity, Class I, BMI 30-34.9 E66.9 09/03/2017 07/08/2018 Primary osteoarthritis of fi rst carpometacarpal joint of right hand 08/05/2017 07/08/2018 Overview: Added automatically from request for surgery [id number] Open wound(s) (multiple) of unspecified site(s), without mention of complication 06/02/2012 10/01/2017 Chronic urticaria 03/03/2012 10/01/2017 Calcaneal spur 06/03/2010 10/01/2017 Diverticulosis 02/06/2010 07/08/2018 Closed fracture of dorsal (t horacic) vertebra without mention of spinal cord injury 11/19/2008 02/06/2010 Closed fracture of sacrum an d coccyx without mention of spinal cord injury 05/31/2007 02/06/2010 Dyspareunia 05/03/2006 02/06/2010 Abnormal Papanicolaou smear of vagina and vagina l HPV 02/06/2010 Hives 10/01/2017 documented as of this encounter (statuses as of 05/26/2022) [facility] History of Past illness Narrative* Problem Noted Date Resolved Date 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 Hypovolemia 07/08/2018 07/09/2018 Last Assessment & Plan: resolved Generalized weakness 06/14/2018 06/19/2018 Last Assessment & Plan: x1 month prior to admission Suspect 2/2 #1; CT brain neg, no signs of infection Vitamin D low, supplementing orally GERD (gastroesophageal reflux disease) 8 07/08/2018 Obesity, Class I, BMI 30-34.9 E66.9 09/03/2017 07/08/2018 Primary osteoarthritis of fi rst carpometacarpal joint of right hand 08/05/2017 07/08/2018 Overview: Added automatically from request for surgery [id number] Open wound(s) (multiple) of unspecified site(s), without mention of complication 06/02/2012 10/01/2017 Chronic urticaria 03/03/2012 10/01/2017 Calcaneal spur 06/03/2010 10/01/2017 Diverticulosis 02/06/2010 07/08/2018 Closed fracture of dorsal (t horacic) vertebra without mention of spinal cord injury 11/19/2008 02/06/2010 Closed fracture of sacrum an d coccyx without mention of spinal cord injury 05/31/2007 02/06/2010 Dyspareunia 05/03/2006 02/06/2010 Abnormal Papanicolaou smear of vagina and vagina l HPV 02/06/2010 Hives 10/01/2017 documented as of this encounter (statuses as of 05/29/2022) [facility] [facility] of Past illness Narrative* Problem Noted Date Resolved Date 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 Hypovolemia 07/08/2018 07/09/2018 Last Assessment & Plan: resolved Generalized weakness 06/14/2018 06/19/2018 Last Assessment & Plan: x1 month prior to admission Suspect 2/2 #1; CT brain neg, no signs of infection Vitamin D low, supplementing orally GERD (gastroesophageal reflux disease) 8 07/08/2018 Obesity, Class I, BMI 30-34.9 E66.9 09/03/2017 07/08/2018 Primary osteoarthritis of fi rst carpometacarpal joint of right hand 08/05/2017 07/08/2018 Overview: Added automatically from request for surgery [id number] Open wound(s) (multiple) of unspecified site(s), without mention of complication 06/02/2012 10/01/2017 Chronic urticaria 03/03/2012 10/01/2017 Calcaneal spur 06/03/2010 10/01/2017 Diverticulosis 02/06/2010 07/08/2018 Closed fracture of dorsal (t horacic) vertebra without mention of spinal cord injury 11/19/2008 02/06/2010 Closed fracture of sacrum an d coccyx without mention of spinal cord injury 05/31/2007 02/06/2010 Dyspareunia 05/03/2006 02/06/2010 Abnormal Papanicolaou smear of vagina and vagina l HPV 02/06/2010 Hives 10/01/2017 documented as of this encounter (statuses as of 06/12/2022) [facility]03-03-2019 History of Past illness Narrative* Problem Noted Date Resolved Date 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 Hypovolemia 07/08/2018 07/09/2018 Last Assessment & Plan: resolved Generalized weakness 06/14/2018 06/19/2018 Last Assessment & Plan: x1 month prior to admission Suspect 2/2 #1; CT brain neg, no signs of infection Vitamin D low, supplementing orally GERD (gastroesophageal reflux disease) 8 07/08/2018 Obesity, Class I, BMI 30-34.9 E66.9 09/03/2017 07/08/2018 Primary osteoarthritis of fi rst carpometacarpal joint of right hand 08/05/2017 07/08/2018 Overview: Added automatically from request for surgery [id number] Open wound(s) (multiple) of unspecified site(s), without mention of complication 06/02/2012 10/01/2017 Chronic urticaria 03/03/2012 10/01/2017 Calcaneal spur 06/03/2010 10/01/2017 Diverticulosis 02/06/2010 07/08/2018 Closed fracture of dorsal (t horacic) vertebra without mention of spinal cord injury 11/19/2008 02/06/2010 Closed fracture of sacrum an d coccyx without mention of spinal cord injury 05/31/2007 02/06/2010 Dyspareunia 05/03/2006 02/06/2010 Abnormal Papanicolaou smear of vagina and vagina l HPV 02/06/2010 Hives 10/01/2017 documented as of this encounter (statuses as of 06/18/2022) [facility]03-03-2019 History of Past illness Narrative* Problem Noted Date Resolved Date 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 Hypovolemia 07/08/2018 07/09/2018 Last Assessment & Plan: resolved Generalized weakness 06/14/2018 06/19/2018 Last Assessment & Plan: x1 month prior to admission Suspect 2/2 #1; CT brain neg, no signs of infection Vitamin D low, supplementing orally GERD (gastroesophageal reflux disease) 8 07/08/2018 Obesity, Class I, BMI 30-34.9 E66.9 09/03/2017 07/08/2018 Primary osteoarthritis of fi rst carpometacarpal joint of right hand 08/05/2017 07/08/2018 Overview: Added automatically from request for surgery [id number] Open wound(s) (multiple) of unspecified site(s), without mention of complication 06/02/2012 10/01/2017 Chronic urticaria 03/03/2012 10/01/2017 Calcaneal spur 06/03/2010 10/01/2017 Diverticulosis 02/06/2010 07/08/2018 Closed fracture of dorsal (t horacic) vertebra without mention of spinal cord injury 11/19/2008 02/06/2010 Closed fracture of sacrum an d coccyx without mention of spinal cord injury 05/31/2007 02/06/2010 Dyspareunia 05/03/2006 02/06/2010 Abnormal Papanicolaou smear of vagina and vagina l HPV 02/06/2010 Hives 10/01/2017 documented as of this encounter (statuses as of 06/23/2022) [facility]03-03[facility]2019 History of Past illness Narrative* Problem Noted Date Resolved Date 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 Hypovolemia 07/08/2018 07/09/2018 Last Assessment & Plan: resolved Generalized weakness 06/14/2018 06/19/2018 Last Assessment & Plan: x1 month prior to admission Suspect 2/2 #1; CT brain neg, no signs of infection Vitamin D low, supplementing orally GERD (gastroesophageal reflux disease) 8 07/08/2018 Obesity, Class I, BMI 30-34.9 E66.9 09/03/2017 07/08/2018 Primary osteoarthritis of fi rst carpometacarpal joint of right hand 08/05/2017 07/08/2018 Overview: Added automatically from request for surgery [id number] Open wound(s) (multiple) of unspecified site(s), without mention of complication 06/02/2012 10/01/2017 Chronic urticaria 03/03/2012 10/01/2017 Calcaneal spur 06/03/2010 10/01/2017 Diverticulosis 02/06/2010 07/08/2018 Closed fracture of dorsal (t horacic) vertebra without mention of spinal cord injury 11/19/2008 02/06/2010 Closed fracture of sacrum an d coccyx without mention of spinal cord injury 05/31/2007 02/06/2010 Dyspareunia 05/03/2006 02/06/2010 Abnormal Papanicolaou smear of vagina and vagina l HPV 02/06/2010 Hives 10/01/2017 documented as of this encounter (statuses as of 07/02/2022) [facility]03-03[facility]2019 History of Past illness Narrative* Problem Noted Date Resolved Date 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 Hypovolemia 07/08/2018 07/09/2018 Last Assessment & Plan: resolved Generalized weakness 06/14/2018 06/19/2018 Last Assessment & Plan: x1 month prior to admission Suspect 2/2 #1; CT brain neg, no signs of infection Vitamin D low, supplementing orally GERD (gastroesophageal reflux disease) 8 07/08/2018 Obesity, Class I, BMI 30-34.9 E66.9 09/03/2017 07/08/2018 Primary osteoarthritis of fi rst carpometacarpal joint of right hand 08/05/2017 07/08/2018 Overview: Added automatically from request for surgery [id number] Open wound(s) (multiple) of unspecified site(s), without mention of complication 06/02/2012 10/01/2017 Chronic urticaria 03/03/2012 10/01/2017 Calcaneal spur 06/03/2010 10/01/2017 Diverticulosis 02/06/2010 07/08/2018 Closed fracture of dorsal (t horacic) vertebra without mention of spinal cord injury 11/19/2008 02/06/2010 Closed fracture of sacrum an d coccyx without mention of spinal cord injury 05/31/2007 02/06/2010 Dyspareunia 05/03/2006 02/06/2010 Abnormal Papanicolaou smear of vagina and vagina l HPV 02/06/2010 Hives 10/01/2017 documented as of this encounter (statuses as of 07/28/2022) [facility]03-03-2019 History of Past illness Narrative* Problem Noted Date Resolved Date 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 Hypovolemia 07/08/2018 07/09/2018 Last Assessment & Plan: resolved Generalized weakness 06/14/2018 06/19/2018 Last Assessment & Plan: x1 month prior to admission Suspect 2 #1; CT brain neg, no signs of infection Vitamin D low, supplementing orally GERD (gastroesophageal reflux disease) 8 07/08/2018 Obesity, Class I, BMI 30-34.9 E66.9 09/03/2017 07/08/2018 Primary osteoarthritis of fi rst carpometacarpal joint of right hand 08/05/2017 07/08/2018 Overview: Added automatically from request for surgery [id number] Open wound(s) (multiple) of unspecified site(s), without mention of complication 06/02/2012 10/01/2017 Chronic urticaria 03/03/2012 10/01/2017 Calcaneal spur 06/03/2010 10/01/2017 Diverticulosis 02/06/2010 07/08/2018 Closed fracture of dorsal (t horacic) vertebra without mention of spinal cord injury 11/19/2008 02/06/2010 Closed fracture of sacrum an d coccyx without mention of spinal cord injury 05/31/2007 02/06/2010 Dyspareunia 05/03/2006 02/06/2010 Abnormal Papanicolaou smear of vagina and vagina l HPV 02/06/2010 Hives 10/01/2017 documented as of this encounter (statuses as of 08/11/2022) [facility]03-03-2019 History of Past illness Narrative* Problem Noted Date Resolved Date 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 Hypovolemia 07/08/2018 07/09/2018 Last Assessment & Plan: resolved Generalized weakness 06/14/2018 06/19/2018 Last Assessment & Plan: x1 month prior to admission Suspect 06/18 #1; CT brain neg, no signs of infection Vitamin D low, supplementing orally GERD (gastroesophageal reflux disease) 8 07/08/2018 Obesity, Class I, BMI 30-34.9 E66.9 09/03/2017 07/08/2018 Primary osteoarthritis of fi rst carpometacarpal joint of right hand 08/05/2017 07/08/2018 Overview: Added automatically from request for surgery [id number] Open wound(s) (multiple) of unspecified site(s), without mention of complication 06/02/2012 10/01/2017 Chronic urticaria 03/03/2012 10/01/2017 Calcaneal spur 06/03/2010 10/01/2017 Diverticulosis 02/06/2010 07/08/2018 Closed fracture of dorsal (t horacic) vertebra without mention of spinal cord injury 11/19/2008 02/06/2010 Closed fracture of sacrum an d coccyx without mention of spinal cord injury 05/31/2007 02/06/2010 Dyspareunia 05/03/2006 02/06/2010 Abnormal Papanicolaou smear of vagina and vagina l HPV 02/06/2010 Hives 10/01/2017 documented as of this encounter (statuses as of 08/13/2022) [facility]03-03[facility]2019 History of Past illness Narrative* Problem Noted Date Resolved Date 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 Hypovolemia 07/08/2018 07/09/2018 Last Assessment & Plan: resolved Generalized weakness 06/14/2018 06/19/2018 Last Assessment & Plan: x1 month prior to admission Suspect 2/2 #1; CT brain neg, no signs of infection Vitamin D low, supplementing orally GERD (gastroesophageal reflux disease) 8 07/08/2018 Obesity, Class I, BMI 30-34.9 E66.9 09/03/2017 07/08/2018 Primary osteoarthritis of fi rst carpometacarpal joint of right hand 08/05/2017 07/08/2018 Overview: Added automatically from request for surgery [id number] Open wound(s) (multiple) of unspecified site(s), without mention of complication 06/02/2012 10/01/2017 Chronic urticaria 03/03/2012 10/01/2017 Calcaneal spur 06/03/2010 10/01/2017 Diverticulosis 02/06/2010 07/08/2018 Closed fracture of dorsal (t horacic) vertebra without mention of spinal cord injury 11/19/2008 02/06/2010 Closed fracture of sacrum an d coccyx without mention of spinal cord injury 05/31/2007 02/06/2010 Dyspareunia 05/03/2006 02/06/2010 Abnormal Papanicolaou smear of vagina and vagina l HPV 02/06/2010 Hives 10/01/2017 documented as of this encounter (statuses as of 08/13/2022) [facility]03-03[facility]2019 History of Past illness Narrative* Problem Noted Date Resolved Date 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 Hypovolemia 07/08/2018 07/09/2018 Last Assessment & Plan: resolved Generalized weakness 06/14/2018 06/19/2018 Last Assessment & Plan: x1 month prior to admission Suspect 2/2 #1; CT brain neg, no signs of infection Vitamin D low, supplementing orally GERD (gastroesophageal reflux disease) 8 07/08/2018 Obesity, Class I, BMI 30-34.9 E66.9 09/03/2017 07/08/2018 Primary osteoarthritis of fi rst carpometacarpal joint of right hand 08/05/2017 07/08/2018 Overview: Added automatically from request for surgery [id number] Open wound(s) (multiple) of unspecified site(s), without mention of complication 06/02/2012 10/01/2017 Chronic urticaria 03/03/2012 10/01/2017 Calcaneal spur 06/03/2010 10/01/2017 Diverticulosis 02/06/2010 07/08/2018 Closed fracture of dorsal (t horacic) vertebra without mention of spinal cord injury 11/19/2008 02/06/2010 Closed fracture of sacrum an d coccyx without mention of spinal cord injury 05/31/2007 02/06/2010 Dyspareunia 05/03/2006 02/06/2010 Abnormal Papanicolaou smear of vagina and vagina l HPV 02/06/2010 Hives 10/01/2017 documented as of this encounter (statuses as of 08/19/2022) [facility]03-03[facility]2019 History of Past illness Narrative* Problem Noted Date Resolved Date 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 Hypovolemia 07/08/2018 07/09/2018 Last Assessment & Plan: resolved Generalized weakness 06/14/2018 06/19/2018 Last Assessment & Plan: x1 month prior to admission Suspect 2/2 #1; CT brain neg, no signs of infection Vitamin D low, supplementing orally GERD (gastroesophageal reflux disease) 8 07/08/2018 Obesity, Class I, BMI 30-34.9 E66.9 09/03/2017 07/08/2018 Primary osteoarthritis of fi rst carpometacarpal joint of right hand 08/05/2017 07/08/2018 Overview: Added automatically from request for surgery [id number] Open wound(s) (multiple) of unspecified site(s), without mention of complication 06/02/2012 10/01/2017 Chronic urticaria 03/03/2012 10/01/2017 Calcaneal spur 06/03/2010 10/01/2017 Diverticulosis 02/06/2010 07/08/2018 Closed fracture of dorsal (t horacic) vertebra without mention of spinal cord injury 11/19/2008 02/06/2010 Closed fracture of sacrum an d coccyx without mention of spinal cord injury 05/31/2007 02/06/2010 Dyspareunia 05/03/2006 02/06/2010 Abnormal Papanicolaou smear of vagina and vagina l HPV 02/06/2010 Hives 10/01/2017 documented as of this encounter (statuses as of 08/20/2022) [facility]03-03[facility]2019 History of Past illness Narrative* Problem Noted Date Resolved Date 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 Hypovolemia 07/08/2018 07/09/2018 Last Assessment & Plan: resolved Generalized weakness 06/14/2018 06/19/2018 Last Assessment & Plan: x1 month prior to admission Suspect 2 #1; CT brain neg, no signs of infection Vitamin D low, supplementing orally GERD (gastroesophageal reflux disease) 8 07/08/2018 Obesity, Class I, BMI 30-34.9 E66.9 09/03/2017 07/08/2018 Primary osteoarthritis of fi rst carpometacarpal joint of right hand 08/05/2017 07/08/2018 Overview: Added automatically from request for surgery [id number] Open wound(s) (multiple) of unspecified site(s), without mention of complication 06/02/2012 10/01/2017 Chronic urticaria 03/03/2012 10/01/2017 Calcaneal spur 06/03/2010 10/01/2017 Diverticulosis 02/06/2010 07/08/2018 Closed fracture of dorsal (t horacic) vertebra without mention of spinal cord injury 11/19/2008 02/06/2010 Closed fracture of sacrum an d coccyx without mention of spinal cord injury 05/31/2007 02/06/2010 Dyspareunia 05/03/2006 02/06/2010 Abnormal Papanicolaou smear of vagina and vagina l HPV 02/06/2010 Hives 10/01/2017 documented as of this encounter (statuses as of 09/16/2022) [facility]03-03-2019 History of Past illness Narrative* Problem Noted Date Resolved Date 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 Hypovolemia 07/08/2018 07/09/2018 Last Assessment & Plan: resolved Generalized weakness 06/14/2018 06/19/2018 Last Assessment & Plan: x1 month prior to admission Suspect 2/2 #1; CT brain neg, no signs of infection Vitamin D low, supplementing orally GERD (gastroesophageal reflux disease) 8 07/08/2018 Obesity, Class I, BMI 30-34.9 E66.9 09/03/2017 07/08/2018 Primary osteoarthritis of fi rst carpometacarpal joint of right hand 08/05/2017 07/08/2018 Overview: Added automatically from request for surgery [id number] Open wound(s) (multiple) of unspecified site(s), without mention of complication 06/02/2012 10/01/2017 Chronic urticaria 03/03/2012 10/01/2017 Calcaneal spur 06/03/2010 10/01/2017 Diverticulosis 02/06/2010 07/08/2018 Closed fracture of dorsal (t horacic) vertebra without mention of spinal cord injury 11/19/2008 02/06/2010 Closed fracture of sacrum an d coccyx without mention of spinal cord injury 05/31/2007 02/06/2010 Dyspareunia 05/03/2006 02/06/2010 Abnormal Papanicolaou smear of vagina and vagina l HPV 02/06/2010 Hives 10/01/2017 documented as of this encounter (statuses as of 10/13/2022) [facility]03-03-2019 History of Past illness Narrative* Problem Noted Date Resolved Date 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 Hypovolemia 07/08/2018 07/09/2018 Last Assessment & Plan: resolved Generalized weakness 06/14/2018 06/19/2018 Last Assessment & Plan: x1 month prior to admission Suspect 2/2 #1; CT brain neg, no signs of infection Vitamin D low, supplementing orally GERD (gastroesophageal reflux disease) 8 07/08/2018 Obesity, Class I, BMI 30-34.9 E66.9 09/03/2017 07/08/2018 Primary osteoarthritis of fi rst carpometacarpal joint of right hand 08/05/2017 07/08/2018 Overview: Added automatically from request for surgery [id number] Open wound(s) (multiple) of unspecified site(s), without mention of complication 06/02/2012 10/01/2017 Chronic urticaria 03/03/2012 10/01/2017 Calcaneal spur 06/03/2010 10/01/2017 Diverticulosis 02/06/2010 07/08/2018 Closed fracture of dorsal (t horacic) vertebra without mention of spinal cord injury 11/19/2008 02/06/2010 Closed fracture of sacrum an d coccyx without mention of spinal cord injury 05/31/2007 02/06/2010 Dyspareunia 05/03/2006 02/06/2010 Abnormal Papanicolaou smear of vagina and vagina l HPV 02/06/2010 Hives 10/01/2017 documented as of this encounter (statuses as of 10/16/2022) [facility]03-03[facility]2019 History of Past illness Narrative* Problem Noted Date Resolved Date 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 Hypovolemia 07/08/2018 07/09/2018 Last Assessment & Plan: resolved Generalized weakness 06/14/2018 06/19/2018 Last Assessment & Plan: x1 month prior to admission Suspect 2/2 #1; CT brain neg, no signs of infection Vitamin D low, supplementing orally GERD (gastroesophageal reflux disease) 8 07/08/2018 Obesity, Class I, BMI 30-34.9 E66.9 09/03/2017 07/08/2018 Primary osteoarthritis of fi rst carpometacarpal joint of right hand 08/05/2017 07/08/2018 Overview: Added automatically from request for surgery [id number] Open wound(s) (multiple) of unspecified site(s), without mention of complication 06/02/2012 10/01/2017 Chronic urticaria 03/03/2012 10/01/2017 Calcaneal spur 06/03/2010 10/01/2017 Diverticulosis 02/06/2010 07/08/2018 Closed fracture of dorsal (t horacic) vertebra without mention of spinal cord injury 11/19/2008 02/06/2010 Closed fracture of sacrum an d coccyx without mention of spinal cord injury 05/31/2007 02/06/2010 Dyspareunia 05/03/2006 02/06/2010 Abnormal Papanicolaou smear of vagina and vagina l HPV 02/06/2010 Hives 10/01/2017 documented as of this encounter (statuses as of 10/16/2022) [facility]03-03[facility]2019 History of Past illness Narrative* Problem Noted Date Resolved Date 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 Hypovolemia 07/08/2018 07/09/2018 Last Assessment & Plan: resolved Generalized weakness 06/14/2018 06/19/2018 Last Assessment & Plan: x1 month prior to admission Suspect 2/ #1; CT brain neg, no signs of infection Vitamin D low, supplementing orally GERD (gastroesophageal reflux disease) 8 07/08/2018 Obesity, Class I, BMI 30-34.9 E66.9 09/03/2017 07/08/2018 Primary osteoarthritis of fi rst carpometacarpal joint of right hand 08/05/2017 07/08/2018 Overview: Added automatically from request for surgery [id number] Open wound(s) (multiple) of unspecified site(s), without mention of complication 06/02/2012 10/01/2017 Chronic urticaria 03/03/2012 10/01/2017 Calcaneal spur 06/03/2010 10/01/2017 Diverticulosis 02/06/2010 07/08/2018 Closed fracture of dorsal (t horacic) vertebra without mention of spinal cord injury 11/19/2008 02/06/2010 Closed fracture of sacrum an d coccyx without mention of spinal cord injury 05/31/2007 02/06/2010 Dyspareunia 05/03/2006 02/06/2010 Abnormal Papanicolaou smear of vagina and vagina l HPV 02/06/2010 Hives 10/01/2017 documented as of this encounter (statuses as of 11/03/2022) [facility]03-03[facility]2019 History of Past illness Narrative* Problem Noted Date Resolved Date 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 Hypovolemia 07/08/2018 07/09/2018 Last Assessment & Plan: resolved Generalized weakness 06/14/2018 06/19/2018 Last Assessment & Plan: x1 month prior to admission Suspect 2/2 #1; CT brain neg, no signs of infection Vitamin D low, supplementing orally GERD (gastroesophageal reflux disease) 8 07/08/2018 Obesity, Class I, BMI 30-34.9 E66.9 09/03/2017 07/08/2018 Primary osteoarthritis of fi rst carpometacarpal joint of right hand 08/05/2017 07/08/2018 Overview: Added automatically from request for surgery [id number] Open wound(s) (multiple) of unspecified site(s), without mention of complication 06/02/2012 10/01/2017 Chronic urticaria 03/03/2012 10/01/2017 Calcaneal spur 06/03/2010 10/01/2017 Diverticulosis 02/06/2010 07/08/2018 Closed fracture of dorsal (t horacic) vertebra without mention of spinal cord injury 11/19/2008 02/06/2010 Closed fracture of sacrum an d coccyx without mention of spinal cord injury 05/31/2007 02/06/2010 Dyspareunia 05/03/2006 02/06/2010 Abnormal Papanicolaou smear of vagina and vagina l HPV 02/06/2010 Hives 10/01/2017 documented as of this encounter (statuses as of 11/06/2022) [facility]03-[facility]2019 History of Past illness Narrative* Problem Noted Date Resolved Date 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 Hypovolemia 07/08/2018 07/09/2018 Last Assessment & Plan: resolved Generalized weakness 06/14/2018 06/19/2018 Last Assessment & Plan: x1 month prior to admission Suspect 2/2 #1; CT brain neg, no signs of infection Vitamin D low, supplementing orally GERD (gastroesophageal reflux disease) 8 07/08/2018 Obesity, Class I, BMI 30-34.9 E66.9 09/03/2017 07/08/2018 Primary osteoarthritis of fi rst carpometacarpal joint of right hand 08/05/2017 07/08/2018 Overview: Added automatically from request for surgery [id number] Open wound(s) (multiple) of unspecified site(s), without mention of complication 06/02/2012 10/01/2017 Chronic urticaria 03/03/2012 10/01/2017 Calcaneal spur 06/03/2010 10/01/2017 Diverticulosis 02/06/2010 07/08/2018 Closed fracture of dorsal (t horacic) vertebra without mention of spinal cord injury 11/19/2008 02/06/2010 Closed fracture of sacrum an d coccyx without mention of spinal cord injury 05/31/2007 02/06/2010 Dyspareunia 05/03/2006 02/06/2010 Abnormal Papanicolaou smear of vagina and vagina l HPV 02/06/2010 Hives 10/01/2017 documented as of this encounter (statuses as of 11/16/2022) [facility]03-03[facility]2019 History of Past illness Narrative* Problem Noted Date Diagnosed Date Resolved Date 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 Hypovolemia 07/08/2018 07/09/2018 Last Assessment & Plan: resolved Generalized weakness 06/14/2018 019 Last Assessment & Plan: x1 month prior to admission Suspect 06/18 #1; CT brain neg, no signs of infection Vitamin D low, supplementing orally GERD (gastroesophageal reflux disease) 10/01/2017 07/08/2018 Obesity, Class I, BMI 30-34.9 E66.9 09/03/2017 07/08/2018 Primary osteoarthritis of fi rst carpometacarpal joint of right hand 08/05/201706/18 Overview: Added automatically from request for surgery [id number] Open wound(s) (multiple) of unspecified site(s), without mention of complication 06/02/2012 10/01/2017 Chronic urticaria 03/03/2012 10/01/2017 Calcaneal spur 06/03/2010 10/01/2017 Diverticulosis 02/06/2010 07/08/2018 Closed fracture of dorsal (t horacic) vertebra without mention of spinal cord injury 11/19/2008 Closed fracture of sacrum an d coccyx without mention of spinal cord injury 05/31/2007 02/06/2010 Dyspareunia 05/03/2006 02/06/2010 Abnormal Papanicolaou smear of vagina and vaginal HPV 02/06/2010 Hives 10/01/2017 documented as of this encounter (statuses as of 11/27/2022) [facility]03-03[facility]2019 History of Past illness Narrative* Problem Noted Date Diagnosed Date Resolved Date 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 Hypovolemia 07/08/2018 07/09/2018 Last Assessment & Plan: resolved Generalized weakness 06/14/2018 019 Last Assessment & Plan: x1 month prior to admission Suspect 06/18 #1; CT brain neg, no signs of infection Vitamin D low, supplementing orally GERD (gastroesophageal reflux disease) 10/01/2017 07/08/2018 Obesity, Class I, BMI 30-34.9 E66.9 09/03/2017 07/08/2018 Primary osteoarthritis of fi rst carpometacarpal joint of right hand 08/05/201706/18 Overview: Added automatically from request for surgery [id number] Open wound(s) (multiple) of unspecified site(s), without mention of complication 06/02/2012 10/01/2017 Chronic urticaria 03/03/2012 10/01/2017 Calcaneal spur 06/03/2010 10/01/2017 Diverticulosis 02/06/2010 07/08/2018 Closed fracture of dorsal (t horacic) vertebra without mention of spinal cord injury 11/19/2008 Closed fracture of sacrum an d coccyx without mention of spinal cord injury 05/31/2007 02/06/2010 Dyspareunia 05/03/2006 02/06/2010 Abnormal Papanicolaou smear of vagina and vaginal HPV 02/06/2010 Hives 10/01/2017 documented as of this encounter (statuses as of 12/23/2022) [facility] History of Past illness Narrative* Problem Noted Date Diagnosed Date Resolved Date 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 Hypovolemia 07/08/2018 07/09/2018 Last Assessment & Plan: resolved Generalized weakness 06/14/2018 019 Last Assessment & Plan: x1 month prior to admission Suspect 06/18 #1; CT brain neg, no signs of infection Vitamin D low, supplementing orally GERD (gastroesophageal reflux disease) 10/01/2017 07/08/2018 Obesity, Class I, BMI 30-34.9 E66.9 09/03/2017 07/08/2018 Primary osteoarthritis of fi rst carpometacarpal joint of right hand 08/05/201706/18 Overview: Added automatically from request for surgery [id number] Open wound(s) (multiple) of unspecified site(s), without mention of complication 06/02/2012 10/01/2017 Chronic urticaria 03/03/2012 10/01/2017 Calcaneal spur 06/03/2010 10/01/2017 Diverticulosis 02/06/2010 07/08/2018 Closed fracture of dorsal (t horacic) vertebra without mention of spinal cord injury 11/19/2008 Closed fracture of sacrum an d coccyx without mention of spinal cord injury 05/31/2007 02/06/2010 Dyspareunia 05/03/2006 02/06/2010 Abnormal Papanicolaou smear of vagina and vaginal HPV 02/06/2010 Hives 10/01/2017 documented as of this encounter (statuses as of 01/05/2023) [facility] History of Past illness Narrative* Problem Noted Date Diagnosed Date Resolved Date 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 Hypovolemia 07/08/2018 07/09/2018 Last Assessment & Plan: resolved Generalized weakness 06/14/2018 019 Last Assessment & Plan: x1 month prior to admission Suspect 2 #1; CT brain neg, no signs of infection Vitamin D low, supplementing orally GERD (gastroesophageal reflux disease) 10/01/2017 07/08/2018 Obesity, Class I, BMI 30-34.9 E66.9 09/03/2017 07/08/2018 Primary osteoarthritis of fi rst carpometacarpal joint of right hand 08/05/201706/18 Overview: Added automatically from request for surgery [id number] Open wound(s) (multiple) of unspecified site(s), without mention of complication 06/02/2012 10/01/2017 Chronic urticaria 03/03/2012 10/01/2017 Calcaneal spur 06/03/2010 10/01/2017 Diverticulosis 02/06/2010 07/08/2018 Closed fracture of dorsal (t horacic) vertebra without mention of spinal cord injury 11/19/2008 Closed fracture of sacrum an d coccyx without mention of spinal cord injury 05/31/2007 02/06/2010 Dyspareunia 05/03/2006 02/06/2010 Abnormal Papanicolaou smear of vagina and vaginal HPV 02/06/2010 Hives 10/01/2017 documented as of this encounter (statuses as of 01/12/2023) [facility] History of Past illness Narrative* Problem Noted Date Diagnosed Date Resolved Date 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 Hypovolemia 07/08/2018 07/09/2018 Last Assessment & Plan: resolved Generalized weakness 06/14/2018 019 Last Assessment & Plan: x1 month prior to admission Suspect 2 #1; CT brain neg, no signs of infection Vitamin D low, supplementing orally GERD (gastroesophageal reflux disease) 10/01/2017 07/08/2018 Obesity, Class I, BMI 30-34.9 E66.9 09/03/2017 07/08/2018 Primary osteoarthritis of fi rst carpometacarpal joint of right hand 08/05/201706/18 Overview: Added automatically from request for surgery [id number] Open wound(s) (multiple) of unspecified site(s), without mention of complication 06/02/2012 10/01/2017 Chronic urticaria 03/03/2012 10/01/2017 Calcaneal spur 06/03/2010 10/01/2017 Diverticulosis 02/06/2010 07/08/2018 Closed fracture of dorsal (t horacic) vertebra without mention of spinal cord injury 11/19/2008 Closed fracture of sacrum an d coccyx without mention of spinal cord injury 05/31/2007 02/06/2010 Dyspareunia 05/03/2006 02/06/2010 Abnormal Papanicolaou smear of vagina and vaginal HPV 02/06/2010 Hives 10/01/2017 documented as of this encounter (statuses as of 01/15/2023) [facility] History of Past illness Narrative* Problem Noted Date Diagnosed Date Resolved Date 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 Hypovolemia 07/08/2018 07/09/2018 Last Assessment & Plan: resolved Generalized weakness 06/14/2018 019 Last Assessment & Plan: x1 month prior to admission Suspect 06/18 #1; CT brain neg, no signs of infection Vitamin D low, supplementing orally GERD (gastroesophageal reflux disease) 10/01/2017 07/08/2018 Obesity, Class I, BMI 30-34.9 E66.9 09/03/2017 07/08/2018 Primary osteoarthritis of fi rst carpometacarpal joint of right hand 08/05/201706/18 Overview: Added automatically from request for surgery [id number] Open wound(s) (multiple) of unspecified site(s), without mention of complication 06/02/2012 10/01/2017 Chronic urticaria 03/03/2012 10/01/2017 Calcaneal spur 06/03/2010 10/01/2017 Diverticulosis 02/06/2010 07/08/2018 Closed fracture of dorsal (t horacic) vertebra without mention of spinal cord injury 11/19/2008 Closed fracture of sacrum an d coccyx without mention of spinal cord injury 05/31/2007 02/06/2010 Dyspareunia 05/03/2006 02/06/2010 Abnormal Papanicolaou smear of vagina and vaginal HPV 02/06/2010 Hives 10/01/2017 documented as of this encounter (statuses as of 02/09/2023) [facility] History of Past illness Narrative* Problem Noted Date Diagnosed Date Resolved Date 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 Hypovolemia 07/08/2018 07/09/2018 Last Assessment & Plan: resolved Generalized weakness 06/14/2018 019 Last Assessment & Plan: x1 month prior to admission Suspect 06/18 #1; CT brain neg, no signs of infection Vitamin D low, supplementing orally GERD (gastroesophageal reflux disease) 10/01/2017 07/08/2018 Obesity, Class I, BMI 30-34.9 E66.9 09/03/2017 07/08/2018 Primary osteoarthritis of fi rst carpometacarpal joint of right hand 08/05/201706/18 Overview: Added automatically from request for surgery [id number] Open wound(s) (multiple) of unspecified site(s), without mention of complication 06/02/2012 10/01/2017 Chronic urticaria 03/03/2012 10/01/2017 Calcaneal spur 06/03/2010 10/01/2017 Diverticulosis 02/06/2010 07/08/2018 Closed fracture of dorsal (t horacic) vertebra without mention of spinal cord injury 11/19/2008 Closed fracture of sacrum an d coccyx without mention of spinal cord injury 05/31/2007 02/06/2010 Dyspareunia 05/03/2006 02/06/2010 Abnormal Papanicolaou smear of vagina and vaginal HPV 02/06/2010 Hives 10/01/2017 documented as of this encounter (statuses as of 02/24/2023) [facility] History of Past illness Narrative* Problem Noted Date Diagnosed Date Resolved Date 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 Hypovolemia 07/08/2018 07/09/2018 Last Assessment & Plan: resolved Generalized weakness 06/14/2018 019 Last Assessment & Plan: x1 month prior to admission Suspect 2/2 #1; CT brain neg, no signs of infection Vitamin D low, supplementing orally GERD (gastroesophageal reflux disease) 10/01/2017 07/08/2018 Obesity, Class I, BMI 30-34.9 E66.9 09/03/2017 07/08/2018 Primary osteoarthritis of fi rst carpometacarpal joint of right hand 08/05/201706/18 Overview: Added automatically from request for surgery [id number] Open wound(s) (multiple) of unspecified site(s), without mention of complication 06/02/2012 10/01/2017 Chronic urticaria 03/03/2012 10/01/2017 Calcaneal spur 06/03/2010 10/01/2017 Diverticulosis 02/06/2010 07/08/2018 Closed fracture of dorsal (t horacic) vertebra without mention of spinal cord injury 11/19/2008 Closed fracture of sacrum an d coccyx without mention of spinal cord injury 05/31/2007 02/06/2010 Dyspareunia 05/03/2006 02/06/2010 Abnormal Papanicolaou smear of vagina and vaginal HPV 02/06/2010 Hives 10/01/2017 documented as of this encounter (statuses as of 02/25/2023) [facility] History of Past illness Narrative* Problem Noted Date Diagnosed Date Resolved Date 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 Hypovolemia 07/08/2018 07/09/2018 Last Assessment & Plan: resolved Generalized weakness 06/14/2018 019 Last Assessment & Plan: x1 month prior to admission Suspect 2/2 #1; CT brain neg, no signs of infection Vitamin D low, supplementing orally GERD (gastroesophageal reflux disease) 10/01/2017 07/08/2018 Obesity, Class I, BMI 30-34.9 E66.9 09/03/2017 07/08/2018 Primary osteoarthritis of fi rst carpometacarpal joint of right hand 08/05/201706/18 Overview: Added automatically from request for surgery [id number] Open wound(s) (multiple) of unspecified site(s), without mention of complication 06/02/2012 10/01/2017 Chronic urticaria 03/03/2012 10/01/2017 Calcaneal spur 06/03/2010 10/01/2017 Diverticulosis 02/06/2010 07/08/2018 Closed fracture of dorsal (t horacic) vertebra without mention of spinal cord injury 11/19/2008 Closed fracture of sacrum an d coccyx without mention of spinal cord injury 05/31/2007 02/06/2010 Dyspareunia 05/03/2006 02/06/2010 Abnormal Papanicolaou smear of vagina and vaginal HPV 02/06/2010 Hives 10/01/2017 documented as of this encounter (statuses as of 03/01/2023) [facility] History of Past illness Narrative* Problem Noted Date Diagnosed Date Resolved Date 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 Hypovolemia 07/08/2018 07/09/2018 Last Assessment & Plan: resolved Generalized weakness 06/14/2018 019 Last Assessment & Plan: x1 month prior to admission Suspect 06/18 #1; CT brain neg, no signs of infection Vitamin D low, supplementing orally GERD (gastroesophageal reflux disease) 10/01/2017 07/08/2018 Obesity, Class I, BMI 30-34.9 E66.9 09/03/2017 07/08/2018 Primary osteoarthritis of fi rst carpometacarpal joint of right hand 08/05/201706/18 Overview: Added automatically from request for surgery [id number] Open wound(s) (multiple) of unspecified site(s), without mention of complication 06/02/2012 10/01/2017 Chronic urticaria 03/03/2012 10/01/2017 Calcaneal spur 06/03/2010 10/01/2017 Diverticulosis 02/06/2010 07/08/2018 Closed fracture of dorsal (t horacic) vertebra without mention of spinal cord injury 11/19/2008 Closed fracture of sacrum an d coccyx without mention of spinal cord injury 05/31/2007 02/06/2010 Dyspareunia 05/03/2006 02/06/2010 Abnormal Papanicolaou smear of vagina and vaginal HPV 02/06/2010 Hives 10/01/2017 documented as of this encounter (statuses as of 03/09/2023) [facility] History of Past illness Narrative* Problem Noted Date Diagnosed Date Resolved Date 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 Hypovolemia 07/08/2018 07/09/2018 Last Assessment & Plan: resolved Generalized weakness 06/14/2018 019 Last Assessment & Plan: x1 month prior to admission Suspect 06/18 #1; CT brain neg, no signs of infection Vitamin D low, supplementing orally GERD (gastroesophageal reflux disease) 10/01/2017 07/08/2018 Obesity, Class I, BMI 30-34.9 E66.9 09/03/2017 07/08/2018 Primary osteoarthritis of fi rst carpometacarpal joint of right hand 08/05/201706/18 Overview: Added automatically from request for surgery [id number] Open wound(s) (multiple) of unspecified site(s), without mention of complication 06/02/2012 10/01/2017 Chronic urticaria 03/03/2012 10/01/2017 Calcaneal spur 06/03/2010 10/01/2017 Diverticulosis 02/06/2010 07/08/2018 Closed fracture of dorsal (t horacic) vertebra without mention of spinal cord injury 11/19/2008 Closed fracture of sacrum an d coccyx without mention of spinal cord injury 05/31/2007 02/06/2010 Dyspareunia 05/03/2006 02/06/2010 Abnormal Papanicolaou smear of vagina and vaginal HPV 02/06/2010 Hives 10/01/2017 documented as of this encounter (statuses as of 03/21/2023) [facility] History of Past illness Narrative* Problem Noted Date Diagnosed Date Resolved Date 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 Hypovolemia 07/08/2018 07/09/2018 Last Assessment & Plan: resolved Generalized weakness 06/14/2018 019 Last Assessment & Plan: x1 month prior to admission Suspect 2/2 #1; CT brain neg, no signs of infection Vitamin D low, supplementing orally GERD (gastroesophageal reflux disease) 10/01/2017 07/08/2018 Obesity, Class I, BMI 30-34.9 E66.9 09/03/2017 07/08/2018 Primary osteoarthritis of fi rst carpometacarpal joint of right hand 08/05/201706/18 Overview: Added automatically from request for surgery [id number] Open wound(s) (multiple) of unspecified site(s), without mention of complication 06/02/2012 10/01/2017 Chronic urticaria 03/03/2012 10/01/2017 Calcaneal spur 06/03/2010 10/01/2017 Diverticulosis 02/06/2010 07/08/2018 Closed fracture of dorsal (t horacic) vertebra without mention of spinal cord injury 11/19/2008 Closed fracture of sacrum an d coccyx without mention of spinal cord injury 05/31/2007 02/06/2010 Dyspareunia 05/03/2006 02/06/2010 Abnormal Papanicolaou smear of vagina and vaginal HPV 02/06/2010 Hives 10/01/2017 documented as of this encounter (statuses as of 03/21/2023) [facility] History of Past illness Narrative* Problem Noted Date Diagnosed Date Resolved Date 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 Hypovolemia 07/08/2018 07/09/2018 Last Assessment & Plan: resolved Generalized weakness 06/14/2018 019 Last Assessment & Plan: x1 month prior to admission Suspect 22 #1; CT brain neg, no signs of infection Vitamin D low, supplementing orally GERD (gastroesophageal reflux disease) 10/01/2017 07/08/2018 Obesity, Class I, BMI 30-34.9 E66.9 09/03/2017 07/08/2018 Primary osteoarthritis of fi rst carpometacarpal joint of right hand 08/05/201706/18 Overview: Added automatically from request for surgery [id number] Open wound(s) (multiple) of unspecified site(s), without mention of complication 06/02/2012 10/01/2017 Chronic urticaria 03/03/2012 10/01/2017 Calcaneal spur 06/03/2010 10/01/2017 Diverticulosis 02/06/2010 07/08/2018 Closed fracture of dorsal (t horacic) vertebra without mention of spinal cord injury 11/19/2008 Closed fracture of sacrum an d coccyx without mention of spinal cord injury 05/31/2007 02/06/2010 Dyspareunia 05/03/2006 02/06/2010 Abnormal Papanicolaou smear of vagina and vaginal HPV 02/06/2010 Hives 10/01/2017 documented as of this encounter (statuses as of 03/21/2023) [facility] Nausea Nausea alone Epigastric pain Abdominal pain, epigastric [facility] Diagnosis NSIP (nonspecific interstitial pneumonia) (HCC) Other specified alveolar and parietoalveolar pneumonopathies [facility] Diagnosis NSIP (nonspecific interstitial pneumonia) (HCC)- Primary Other specified alveolar and parietoalveolar pneumonopathies Antisynthetase syndrome (HCC) Autoimmune disease, not elsewhere classified Esophageal dysmotility Dyskinesia of esophagus History of immunosuppressive therapy Personal history of immunosuppressive therapy Interstitial pulmonary disease (HCC) Postinflammatory pulmonary fibrosis [facility] Diagnosis Urinary urgency- Primary Urgency of urination Overactive bladder Hypertonicity of bladder [facility] Diagnosis Need for vaccination- Primary Need for prophylactic vaccination and inoculation against unspecified single disease [facility] Diagnosis Overactive bladder- Primary Hypertonicity of bladder [facility] Diagnosis Cystocele, midline- Primary Encounter for gynecological examination (general) (routine) without abnormal findings Encounter for screening mammogram for breast cancer Urinary urgency Urgency of urination Urinary frequency Vaginal atrophy Postmenopausal atrophic vaginitis [facility] Diagnosis Cystocele, midline Urinary urgency Urgency of urination Urinary frequency [facility] Diagnosis Hypothyroidism, unspecified type- Primary Chronic constipation Unspecified constipation Essential tremor Essential and other specified forms of tremor OAB (overactive bladder) Hypertonicity of bladder Low sodium levels Hyposmolality and/or hyponatremia ILD (interstitial lung disease) ([facility]) 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) Other disorders of neurohypophysis Thymoma, malignant (HCC) Malignant neoplasm of thymus Brad esophagitis ([facility]) Candidiasis of the esophagus Medication monitoring encounter Encounter for therapeutic drug monitoring [facility] Diagnosis Need for vaccination- Primary Need for prophylactic vaccination and inoculation against unspecified single disease [facility] Diagnosis NSIP (nonspecific interstitial pneumonia) (HCC)- Primary Other specified alveolar and parietoalveolar pneumonopathies Ground glass opacity present on imaging of lung Encounter for screening for osteoporosis Special screening for osteoporosis director 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 steroids Encounter for long-term (current) use of steroids [facility] current use of immunosuppressive drug [facility] Steroid-induced osteopenia- Primary Disorder of bone and cartilage, unspecified [facility] Diagnosis Lung nodules- Primary Other nonspecific abnormal finding of lung field [facility] Diagnosis Brad infection Candidiasis of unspecified site [facility] Diagnosis Acute cystitis with hematuria- Primary Acute cystitis [facility] Diagnosis Acute cystitis with hematuria- Primary Acute cystitis Cystocele, midline Urinary urgency Urgency of urination Urinary frequency Overactive bladder Hypertonicity of bladder [facility] Diagnosis Urinary frequency- Primary [facility] Diagnosis NSIP (nonspecific interstitial pneumonia) (HCC)- Primary Other specified alveolar and parietoalveolar pneumonopathies [facility] Diagnosis NSIP (nonspecific interstitial pneumonia) (HCC)- Primary Other specified alveolar and parietoalveolar pneumonopathies High risk medication use Encounter for long-term (current) use of other medications [facility] Diagnosis Brad infection Candidiasis of unspecified site [facility] Diagnosis Gross hematuria- Primary [facility] Diagnosis Acute cystitis with hematuria- Primary Acute cystitis [facility] Diagnosis Hypothyroidism, unspecified type [facility] Diagnosis 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- Primary [facility] Diagnosis Acquired hypothyroidism- Primary Unspecified hypothyroidism Brad infection Candidiasis of unspecified site Need for vaccination Need for prophylactic vaccination and inoculation against unspecified single disease ILD (interstitial lung disease) (HCC) Postinflammatory pulmonary fibrosis [facility] Diagnosis Sore throat- Primary Acute pharyngitis Fever, unspecified fever cause [facility] Diagnosis Kidney stone- Primary Calculus of kidney 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 Hydronephrosis with ureteropelvic junction (UPJ) obstruction [facility] Diagnosis Acute cough- Primary Sinobronchitis Unspecified sinusitis (chronic) [facility] Diagnosis Bronchitis- Primary Bronchitis, not specified as acute or chronic ILD (interstitial lung disease) (HCC) Postinflammatory pulmonary fibrosis Subacute cough Cough [facility] Diagnosis OAB (overactive bladder)- Primary Hypertonicity of bladder [facility] Diagnosis Nocturia- Primary Urinary frequency OAB (overactive bladder) Hypertonicity of bladder [facility] Diagnosis Hydronephrosis with ureteropelvic junction (UPJ) obstruction [facility] Diagnosis Kidney stone- Primary Calculus of kidney [facility] Diagnosis Urinary frequency- Primary OAB (overactive bladder) Hypertonicity of bladder Nocturia Preop examination Preoperative examination, unspecified [facility] Diagnosis NSIP (nonspecific interstitial pneumonitis) ([facility])- Primary Other specified alveolar and parietoalveolar pneumonopathies Urinary frequency OAB (overactive bladder) Hypertonicity of bladder Nocturia Preop examination Preoperative examination, unspecified [facility] Diagnosis NSIP (nonspecific interstitial pneumonitis) (HCC)- Primary Other specified alveolar and parietoalveolar pneumonopathies Urinary frequency OAB (overactive bladder) Hypertonicity of bladder Nocturia Preop examination Preoperative examination, unspecified [facility] Diagnosis Brad infection- Primary Candidiasis of unspecified site Urinary frequency OAB (overactive bladder) Hypertonicity of bladder Nocturia Preop examination Preoperative examination, unspecified [facility] Diagnosis Hypothyroidism, unspecified type- Primary Brad esophagitis ([facility]) Candidiasis of the esophagus Epigastric pain Abdominal pain, epigastric Esophageal dysmotility Dyskinesia of esophagus ILD (interstitial lung disease) ([facility]) Postinflammatory pulmonary fibrosis OAB (overactive bladder) Hypertonicity of bladder Low sodium levels Hyposmolality and/or hyponatremia Syndrome of inappropriate ADH (SIADH) secretion ([facility]) Other disorders of neurohypophysis Thymoma, malignant (HCC) Malignant neoplasm of thymus Urinary frequency OAB (overactive bladder) Hypertonicity of bladder Nocturia Preop examination Preoperative examination, unspecified [facility] Diagnosis Preoperative examination- Primary Preoperative examination, unspecified NSIP (nonspecific interstitial pneumonitis) ([facility]) Other specified alveolar and parietoalveolar pneumonopathies Esophageal dysmotility Dyskinesia of esophagus Acquired hypothyroidism Unspecified hypothyroidism Thymoma, malignant (HCC) Malignant neoplasm of thymus Current chronic use of systemic steroids Stage 3a chronic kidney disease ([facility]) Urinary frequency OAB (overactive bladder) Hypertonicity of bladder Nocturia Preop examination Preoperative examination, unspecified [facility] Diagnosis Preoperative examination- Primary Preoperative examination, unspecified OAB (overactive bladder) Hypertonicity of bladder Urge urinary incontinence Urge incontinence Urinary frequency Urinary urgency Urgency of urination Urinary frequency OAB (overactive bladder) Hypertonicity of bladder Nocturia Preop examination Preoperative examination, unspecified [facility] note* Diagnosis Post-operative state- Primary Other postprocedural status Urinary frequency [facility] Need for vaccination- Primary Need for prophylactic vaccination and inoculation against unspecified single disease [facility] Diagnosis Encounter for screening mammogram for breast cancer [facility] Diagnosis Gross hematuria [facility] Diagnosis NSIP (nonspecific interstitial pneumonia) ([facility]) Other specified alveolar and parietoalveolar pneumonopathies [facility] Diagnosis Medicare annual wellness visit, initial- Primary Routine general medical examination at a [facility] facility Hypothyroidism, unspecified type ILD (interstitial lung disease) (HCC) Postinflammatory pulmonary fibrosis Low sodium levels Hyposmolality and/or hyponatremia OAB (overactive bladder) Hypertonicity of bladder Encounter for screening mammogram for malignant neoplasm of breast Other screening mammogram Stage 3a chronic kidney disease (HCC) Obesity, Class I, BMI 30-34.9 Obesity, unspecified [facility] Diagnosis Encounter for screening mammogram for malignant neoplasm of breast Other screening mammogram [facility] Diagnosis Encounter for screening mammogram for malignant neoplasm of breast- Primary Other screening mammogram [facility] Diagnosis Overactive bladder- Primary Hypertonicity of bladder Urinary frequency Dysuria Neurostimulator device in situ [facility] Diagnosis Urinary frequency- Primary Vaginal burning Other specified symptom associated with female genital organs [facility] Diagnosis NSIP (nonspecific interstitial pneumonitis) (HCC)- Primary Other specified alveolar and parietoalveolar pneumonopathies Current chronic use of systemic steroids director long term care current use of immunosuppressive drug [facility] Diagnosis Overactive bladder- Primary Hypertonicity of bladder Vulvar burning Unspecified symptom associated with female genital organs Vaginal atrophy Postmenopausal atrophic vaginitis [facility] Diagnosis Tremor- Primary Abnormal involuntary movements [facility] Diagnosis Kidney stone Calculus of kidney [facility] Diagnosis Kidney stone- Primary Calculus of kidney [facility] Diagnosis Kidney stone- Primary Calculus of kidney [facility] Diagnosis Encounter for gynecological examination (general) (routine) without abnormal findings- Primary Pap smear for cervical cancer screening Screening for malignant neoplasm of the cervix Encounter for screening mammogram for breast cancer [facility] Diagnosis Kidney stone Calculus of kidney [facility] Diagnosis Overactive bladder- Primary Hypertonicity of bladder Urinary frequency [facility] Diagnosis Kidney stone- Primary Calculus of kidney Hypothyroidism, unspecified type- Primary Tremor Abnormal involuntary movements Low sodium levels Hyposmolality and/or hyponatremia ILD (interstitial lung disease) (HCC) Postinflammatory pulmonary fibrosis Stage 3a chronic kidney disease (HCC) [facility] Diagnosis Tremor- Primary Abnormal involuntary movements Hypothyroidism, unspecified type Low sodium levels Hyposmolality and/or hyponatremia ILD (interstitial lung disease) (HCC) Postinflammatory pulmonary fibrosis Stage 3a chronic kidney disease (HCC) Function kidney decreased Unspecified disorder of kidney and ureter Elevated glucose Other abnormal glucose Obesity, Class I, BMI 30-34.9 Obesity, unspecified Screening for depression Encounter for screening examination for other mental health and behavioral disorders [facility] Diagnosis Hyponatremia- Primary Hyposmolality and/or hyponatremia Generalized weakness Other malaise and fatigue Hypothyroidism, unspecified type Malnutrition of moderate degree (HCC) Malnutrition of moderate degree Orthostatic hypotension Generalized weakness Other malaise and fatigue Near syncope- Primary Syncope and collapse Weakness Other malaise and fatigue Nausea and vomiting, intractability of vomiting not specified, unspecified vomiting type Hyponatremia Hyposmolality and/or hyponatremia Hypokalemia Hypopotassemia Orthostatic hypotension Severe protein-energy malnutrition (HCC) Other severe protein-calorie malnutrition Hypovolemia Orthostatic hypotension Numbness of tongue Disturbance of skin sensation Preoperative examination- Primary Preoperative examination, unspecified NSIP (nonspecific interstitial pneumonitis) (HCC) Other specified alveolar and parietoalveolar pneumonopathies Esophageal dysmotility Dyskinesia of esophagus Acquired hypothyroidism Unspecified hypothyroidism Thymoma, malignant (HCC) Malignant neoplasm of thymus Current chronic use of systemic steroids Stage 3a chronic kidney disease (HCC) Chronic interstitial cystitis- Primary [facility] Diagnosis Hyponatremia- Primary Hyposmolality and/or hyponatremia Generalized weakness Other malaise and fatigue Hypothyroidism, unspecified type Malnutrition of moderate degree (HCC) Malnutrition of moderate degree Orthostatic hypotension Generalized weakness Other malaise and fatigue Near syncope- Primary Syncope and collapse Weakness Other malaise and fatigue Nausea and vomiting, intractability of vomiting not specified, unspecified vomiting type Hyponatremia Hyposmolality and/or hyponatremia Hypokalemia Hypopotassemia Orthostatic hypotension Severe protein-energy malnutrition (HCC) Other severe protein-calorie malnutrition Hypovolemia Orthostatic hypotension Numbness of tongue Disturbance of skin sensation Preoperative examination- Primary Preoperative examination, unspecified NSIP (nonspecific interstitial pneumonitis) (HCC) Other specified alveolar and parietoalveolar pneumonopathies Esophageal dysmotility Dyskinesia of esophagus Acquired hypothyroidism Unspecified hypothyroidism Thymoma, malignant (HCC) Malignant neoplasm of thymus Current chronic use of systemic steroids Stage 3a chronic kidney disease (HCC) Tremor- Primary Abnormal involuntary movements Dyskinesia, tardive Subacute dyskinesia due to drugs Drug-induced parkinsonism (HCC) Secondary Parkinsonism [facility] Diagnosis Hyponatremia- Primary Hyposmolality and/or hyponatremia Generalized weakness Other malaise and fatigue Hypothyroidism, unspecified type Malnutrition of moderate degree (HCC) Malnutrition of moderate degree Orthostatic hypotension Generalized weakness Other malaise and fatigue Near syncope- Primary Syncope and collapse Weakness Other malaise and fatigue Nausea and vomiting, intractability of vomiting not specified, unspecified vomiting type Hyponatremia Hyposmolality and/or hyponatremia Hypokalemia Hypopotassemia Orthostatic hypotension Severe protein-energy malnutrition (HCC) Other severe protein-calorie malnutrition Hypovolemia Orthostatic hypotension Numbness of tongue Disturbance of skin sensation Preoperative examination- Primary Preoperative examination, unspecified NSIP (nonspecific interstitial pneumonitis) (HCC) Other specified alveolar and parietoalveolar pneumonopathies Esophageal dysmotility Dyskinesia of esophagus Acquired hypothyroidism Unspecified hypothyroidism Thymoma, malignant (HCC) Malignant neoplasm of thymus Current chronic use of systemic steroids Stage 3a chronic kidney disease (HCC) Chronic interstitial cystitis- Primary [facility] Diagnosis Hyponatremia- Primary Hyposmolality and/or hyponatremia Generalized weakness Other malaise and fatigue Hypothyroidism, unspecified type Malnutrition of moderate degree (HCC) Malnutrition of moderate degree Orthostatic hypotension Generalized weakness Other malaise and fatigue Near syncope- Primary Syncope and collapse Weakness Other malaise and fatigue Nausea and vomiting, intractability of vomiting not specified, unspecified vomiting type Hyponatremia Hyposmolality and/or hyponatremia Hypokalemia Hypopotassemia Orthostatic hypotension Severe protein-energy malnutrition (HCC) Other severe protein-calorie malnutrition Hypovolemia Orthostatic hypotension Numbness of tongue Disturbance of skin sensation Preoperative examination- Primary Preoperative examination, unspecified NSIP (nonspecific interstitial pneumonitis) (HCC) Other specified alveolar and parietoalveolar pneumonopathies Esophageal dysmotility Dyskinesia of esophagus Acquired hypothyroidism Unspecified hypothyroidism Thymoma, malignant (HCC) Malignant neoplasm of thymus Current chronic use of systemic steroids Stage 3a chronic kidney disease (HCC) Function kidney decreased- Primary Unspecified disorder of kidney and ureter Prediabetes Other abnormal glucose High triglycerides Pure hyperglyceridemia [facility] Diagnosis Hyponatremia- Primary Hyposmolality and/or hyponatremia Generalized weakness Other malaise and fatigue Hypothyroidism, unspecified type Malnutrition of moderate degree (HCC) Malnutrition of moderate degree Orthostatic hypotension Generalized weakness Other malaise and fatigue Near syncope- Primary Syncope and collapse Weakness Other malaise and fatigue Nausea and vomiting, intractability of vomiting not specified, unspecified vomiting type Hyponatremia Hyposmolality and/or hyponatremia Hypokalemia Hypopotassemia Orthostatic hypotension Severe protein-energy malnutrition (HCC) Other severe protein-calorie malnutrition Hypovolemia SIADH (syndrome of inappropriate ADH production) (HCC) Other disorders of neurohypophysis Orthostatic hypotension Numbness of tongue Disturbance of skin sensation Acute cough Preoperative examination- Primary Preoperative examination, unspecified NSIP (nonspecific interstitial pneumonitis) (HCC) Other specified alveolar and parietoalveolar pneumonopathies Esophageal dysmotility Dyskinesia of esophagus Acquired hypothyroidism Unspecified hypothyroidism Thymoma, malignant (HCC) Malignant neoplasm of thymus Current chronic use of systemic steroids Stage 3a chronic kidney disease (HCC) [facility] Diagnosis Hyponatremia- Primary Hyposmolality and/or hyponatremia Generalized weakness Other malaise and fatigue Hypothyroidism, unspecified type Malnutrition of moderate degree (HCC) Malnutrition of moderate degree Orthostatic hypotension Generalized weakness Other malaise and fatigue Near syncope- Primary Syncope and collapse Weakness Other malaise and fatigue Nausea and vomiting, intractability of vomiting not specified, unspecified vomiting type Hyponatremia Hyposmolality and/or hyponatremia Hypokalemia Hypopotassemia Orthostatic hypotension Severe protein-energy malnutrition (HCC) Other severe protein-calorie malnutrition Hypovolemia SIADH (syndrome of inappropriate ADH production) (HCC) Other disorders of neurohypophysis Orthostatic hypotension Numbness of tongue Disturbance of skin sensation Kidney stone Calculus of kidney Preoperative examination- Primary Preoperative examination, unspecified NSIP (nonspecific interstitial pneumonitis) (HCC) Other specified alveolar and parietoalveolar pneumonopathies Esophageal dysmotility Dyskinesia of esophagus Acquired hypothyroidism Unspecified hypothyroidism Thymoma, malignant (HCC) Malignant neoplasm of thymus Current chronic use of systemic steroids Stage 3a chronic kidney disease (HCC) [facility] Diagnosis Hyponatremia- Primary Hyposmolality and/or hyponatremia Generalized weakness Other malaise and fatigue Hypothyroidism, unspecified type Malnutrition of moderate degree (HCC) Malnutrition of moderate degree Orthostatic hypotension Generalized weakness Other malaise and fatigue Near syncope- Primary Syncope and collapse Weakness Other malaise and fatigue Nausea and vomiting, intractability of vomiting not specified, unspecified vomiting type Hyponatremia Hyposmolality and/or hyponatremia Hypokalemia Hypopotassemia Orthostatic hypotension Severe protein-energy malnutrition (HCC) Other severe protein-calorie malnutrition Hypovolemia SIADH (syndrome of inappropriate ADH production) (HCC) Other disorders of neurohypophysis Orthostatic hypotension Numbness of tongue Disturbance of skin sensation Acute right ankle pain Preoperative examination- Primary Preoperative examination, unspecified NSIP (nonspecific interstitial pneumonitis) (HCC) Other specified alveolar and parietoalveolar pneumonopathies Esophageal dysmotility Dyskinesia of esophagus Acquired hypothyroidism Unspecified hypothyroidism Thymoma, malignant (HCC) Malignant neoplasm of thymus Current chronic use of systemic steroids Stage 3a chronic kidney disease (HCC) [facility] Diagnosis Hyponatremia- Primary Hyposmolality and/or hyponatremia Generalized weakness Other malaise and fatigue Hypothyroidism, unspecified type Malnutrition of moderate degree (HCC) Malnutrition of moderate degree Orthostatic hypotension Generalized weakness Other malaise and fatigue Near syncope- Primary Syncope and collapse Weakness Other malaise and fatigue Nausea and vomiting, intractability of vomiting not specified, unspecified vomiting type Hyponatremia Hyposmolality and/or hyponatremia Hypokalemia Hypopotassemia Orthostatic hypotension Severe protein-energy malnutrition (HCC) Other severe protein-calorie malnutrition Hypovolemia Orthostatic hypotension Numbness of tongue Disturbance of skin sensation Preoperative examination- Primary Preoperative examination, unspecified NSIP (nonspecific interstitial pneumonitis) (HCC) Other specified alveolar and parietoalveolar pneumonopathies Esophageal dysmotility Dyskinesia of esophagus Acquired hypothyroidism Unspecified hypothyroidism Thymoma, malignant (HCC) Malignant neoplasm of thymus Current chronic use of systemic steroids Stage 3a chronic kidney disease (HCC) Fall, initial encounter- Primary Hypotension, unspecified hypotension type Rib pain Chest pain, unspecified documented in this encounter [facility] (narrative)* Diagnostic Procedure Only (Routine) - Authorized Specialty Diagnoses / Procedures Referred By Kim cano Referred To Contact US IMAGING Diagnoses Cystocele, midline Urinary urgency Urinary frequency Procedures US FEMALE PELVIS TRANSVAG US TRANSVAGINAL Muriel Lopez APRN.CNM [address] [place] [address] Us Imaging Referral ID Status Reason Start Date Expiration Date Visits Requested Visits Authorized [id number] Authorized Auto-Generat ed Referral 11/26/2021 12/26/2022 1 1 * Consult, Test, Treat (Routine) - Authorized Specialty Diagnoses / Procedures Referred By Kim cano Referred To Contact Diagnoses Cystocele, midline Urinary urgency Urinary frequency Procedures CONSULT TO URO GYNECOLOGY OFFICE/OUTPATIENT [facility] 60-74 MINUTES Muriel Lopez APRN.CNM [address] [place] [address] Referral ID Status Reason Start Date Expiration Date Visits Requested Visits Authorized [id number] Authorized PCP Requested Referral Auto-Generate d Referral 11/26/2021 11/26/2022 1 1 * Diagnostic Procedure Only (Routine) - Pending Review Specialty Diagnoses / Procedures Referred By Kim cano Referred To Contact BR IMAGING Diagnoses Encounter for screening mammogram for breast cancer Procedures CHYNA SCREENING W KOBE SCREENING DIGITAL BREAST TOMOSYNTHESIS BI SCREENING MAMMOGRAPHY BI 2-VIEW BREAST INC CAD Muriel Lopez APRN.CNM [address] [place] [address] Br Imaging [address] [place] [address] Referral ID Status Reason Start Date Expiration Date Visits Requested Visits Authorized [id number] Pending Review Auto-Generat ed Referral 11/26/2021 12/26/2022 1 1 [facility] for referral (narrative)* Diagnostic Procedure Only (Routine) - Closed Specialty Diagnoses / Procedures Referred By Kim t Referred To Contact US IMAGING Diagnoses Cystocele, midline Urinary urgency Urinary frequency Procedures US FEMALE PELVIS TRANSVAG US TRANSVAGINAL Muriel Lopez APRN.CNM [address] [place] [address] Us Imaging Referral ID Status Reason Start Date Expiration Date V isits Requested Visits Authorized [id number] Closed Auto-Generate d Referral 11/26/2021 12/26/2022 1 1 [facility] for referral (narrative)* Outpatient Procedure (Routine) - Pending Review Specialty Diagnoses / Procedures Referred By Kim t Referred To Contact [facility] Diagnoses Urinary urgency Urinary frequency Overactive bladder Procedures URODYNAMICS WHI COMPLX CYSTOMETRO W/VOID PRESS&URETHRAL PROFILE John Mg MD [address] [place] [address] [facility] [address] [place] [address] Referral ID Status Reason Start Date Expiration Date Visits Requested Visits Authorized [id number] Pending Review Auto-Generat ed Referral 03/16/2023 1 1 T [facility] for referral (narrative)* Diagnostic Procedure Only (Routine) - Pending Review Specialty Diagnoses / Procedures Referred By Gillianac t Referred To Contact MOLECULAR & FUNCTIONAL IMAGING Diagnoses Hydronephrosis with ureteropelvic junction (UPJ) obstruction Procedures NM RENAL FLOW/FXN W PHARM KIDNEY IMG MORPHOLOGY VASCULAR FLOW 1 W/RX Mathew Yang Jr., MD [address] [place] [address] Molecular & Functional Imaging [address] [place] [address] Referral ID Status Reason Start Date Expiration Date Visits Requested Visits Authorized [id number] Pending Review Auto-Generat ed Referral 08/11/2022 09/10/2023 1 1 * Diagnostic Procedure Only (Routine) - Closed Specialty Diagnoses / Procedures Referred By Contac t Referred To Contact XR IMAGING Diagnoses Kidney stone Procedures XR ABDOMEN 1V SUPINE RADIOLOGIC EXAM ABDOMEN 1 VIEW Mathew Yang Jr., MD [address] [place] [address] Xr Imaging Referral ID Status Reason Start Date Expiration Date V isits Requested Visits Authorized [id number] Closed Auto-Generate d Referral 08/11/2022 09/10/2023 1 1 [facility] for referral (narrative)* Diagnostic Procedure Only (Routine) - Closed Specialty Diagnoses / Procedures Referred By Kim cano Referred To Contact MOLECULAR [facility] FUNCTIONAL IMAGING Diagnoses Hydronephrosis with ureteropelvic junction (UPJ) obstruction Procedures NM RENAL FLOW/FXN W PHARM KIDNEY IMG MORPHOLOGY VASCULAR FLOW 1 W/RX Mathew Yang Jr., MD [address] [place] [address] Molecular & Functional Imaging [address] [place] [address] Referral ID Status Reason Start Date Expiration Date V isits Requested Visits Authorized [id number] Closed Auto-Generate d Referral 08/11/2022 09/10/2023 1 1 [facility] for referral (narrative)* Diagnostic Procedure Only (Routine) - Pending Review Specialty Diagnoses / Procedures Referred By Kim t Referred To Contact XR IMAGING Diagnoses Kidney stone Procedures XR ABDOMEN 1V SUPINE RADIOLOGIC EXAM ABDOMEN 1 VIEW Mathew Yang Jr., MD [address] [place] [address] Xr Imaging Referral ID Status Reason Start Date Expiration Date Visits Requested Visits Authorized [id number] Pending Review Auto-Generat ed Referral 11/04/2023 12/03/2023 1 1 T [facility] for referral (narrative)* Diagnostic Procedure Only (Routine) - Closed Specialty Diagnoses / Procedures Referred By Kim cano Referred To Contact BR IMAGING Diagnoses Encounter for screening mammogram for breast cancer Procedures CHYNA SCREENING W KOBE SCREENING DIGITAL BREAST TOMOSYNTHESIS BI SCREENING MAMMOGRAPHY BI 2-VIEW BREAST INC Muriel Phillips APRN.CNM [address] [place] [address] Br Imaging [address] [place] [address] Referral ID Status Reason Start Date Expiration Date V isits Requested Visits Authorized [id number] Closed Auto-Generate d Referral 11/26/2021 12/26/2022 1 1 [facility] for referral (narrative)* Diagnostic Procedure Only (Routine) - Pending Review Specialty Diagnoses / Procedures Referred By Contac t Referred To Contact BR IMAGING Diagnoses Encounter for screening mammogram for malignant neoplasm of breast Procedures CHYNA SCREENING SCREENING MAMMOGRAPHY BI 2-VIEW BREAST INC Priyanka Lino MD [facility] [place] [address] Br Imaging [address] [place] [address] Referral ID Status Reason Start Date Expiration Date Visits Requested Visits Authorized [id number] Pending Review Auto-Generat ed Referral 06/22/2023 07/21/2024 1 1 [facility] for referral (narrative)* Diagnostic Procedure Only (Routine) - Closed Specialty Diagnoses / Procedures Referred By Kim cano Referred To Contact BR IMAGING Diagnoses Encounter for screening mammogram for malignant neoplasm of breast Procedures CHYNA SCREENING W KOBE SCREENING DIGITAL BREAST TOMOSYNTHESIS BI SCREENING MAMMOGRAPHY BI 2-VIEW BREAST INC Priyanka Lino MD [address] [place] [address] Br Imaging [address] [place] [address] Referral ID Status Reason Start Date Expiration Date V isits Requested Visits Authorized [id number] Closed Auto-Generate d Referral 08/09/2023 09/04/2024 1 1 [facility] for referral (narrative)* Diagnostic Procedure Only (Routine) - Pending Review Specialty Diagnoses / Procedures Referred By Kim cano Referred To Contact XR IMAGING Diagnoses Kidney stone Procedures XR ABDOMEN 1V SUPINE RADIOLOGIC EXAM ABDOMEN 1 VIEW Mathew Yang Jr., MD [address] [place] [address] [place] [address] Referral ID Status Reason Start Date Expiration Date Visits Requested Visits Authorized [id number] Pending Review Auto-Generat ed Referral 12/23/2023 12/21/2024 1 1 T [facility] for referral (narrative)* Diagnostic Procedure Only (Routine) - Authorized Specialty Diagnoses / Procedures Referred By Kim cano Referred To Contact [facility] IM[facility] Diagnoses Encounter for screening mammogram for breast cancer Procedures CHYNA SCREENING W KOBE SCREENING DIGITAL BREAST TOMOSYNTHESIS BI SCREENING MAMMOGRAPHY BI 2-VIEW BREAST INC Muriel Phillips APRN.CN [address] [place] [address] Br Imaging [address] [place] [address] Referral ID Status Reason Start Date Expiration Date Visits Requested Visits Authorized [id number] Authorized Auto-Generat ed Referral 11/29/2023 12/28/2024 1 1 [facility] for referral (narrative)* Diagnostic Procedure Only (Routine) - Authorized Specialty Diagnoses / Procedures Referred By Contac t Referred To Contact XR IMAGING Diagnoses Kidney stone Procedures XR ABDOMEN 1V SUPINE RADIOLOGIC EXAM ABDOMEN 1 VIEW Mathew Yang Jr., MD [address] [place] [id number] [place] [address] Referral ID Status Reason Start Date Expiration Date Visits Requested Visits Authorized [id number] Authorized Auto-Generat ed Referral 12/20/2024 01/19/2025 1 1 [facility] for referral (narrative)* Diagnostic Procedure Only (Routine) - Closed Specialty Diagnoses / Procedures Referred By Contac t Referred To Contact XR IMAGING Diagnoses Kidney stone Procedures XR ABDOMEN 1V SUPINE RADIOLOGIC EXAM ABDOMEN 1 VIEW Mathew Yang Jr., MD [address] [place] [address] [place] [address] Referral ID Status Reason Start Date Expiration Date V isits Requested Visits Authorized [id number] Closed Auto-Generate d Referral 08/11/2022 09/10/2023 1 1 [facility] for visit Narrative* Outpatient Procedure (Routine) - Closed Specialty Diagnoses / Procedures Referred By Contac t Referred To Contact [facility] Diagnoses Urinary urgency Urinary frequency Overactive bladder Procedures URODYNAMICS I COMPLX CYSTOMETRO W/VOID PRESS&URETHRAL PROFILE John Mg MD [address] [place] [address] [facility] [address] [place] [address] Referral ID Status Reason Start Date Expiration Date V isits Requested Visits Authorized [id number] Closed Auto-Generate d Referral 03/16/2022 03/16/2023 1 1 [facility] for visit Narrative* Diagnostic Procedure Only (Routine) - Closed Specialty Diagnoses / Procedures Referred By Kim cano Referred To Contact MOLECULAR & FUNCTIONAL IMAGING Diagnoses Hydronephrosis with ureteropelvic junction (UPJ) obstruction Procedures NM RENAL FLOW/FXN W PHARM KIDNEY IMG MORPHOLOGY VASCULAR FLOW 1 W/RX Mathew Yang Jr., MD [address] [place] [address] Molecular & Functional Imaging [address] [place] [address] Referral ID Status Reason Start Date Expiration Date V isits Requested Visits Authorized [id number] Closed Auto-Generate d Referral 08/11/2022 09/10/2023 1 1 [facility] for visit Narrative* Diagnostic Procedure Only (Routine) - Closed Specialty Diagnoses / Procedures Referred By Kim cano Referred To Contact BR IMAGING Diagnoses Encounter for screening mammogram for breast cancer Procedures CHYNA SCREENING W KOBE SCREENING DIGITAL BREAST TOMOSYNTHESIS BI SCREENING MAMMOGRAPHY BI 2-VIEW BREAST INC CAD Muriel Lopez, [facility] [address] [address] Br Imaging [address] [place] [address] Referral ID Status Reason Start Date Expiration Date V isits Requested Visits Authorized [id number] Closed Auto-Generate d Referral 11/26/2021 12/26/2022 1 1 [facility] for visit Narrative* Diagnostic Procedure Only (Routine) - Closed Specialty Diagnoses / Procedures Referred By Kim cano Referred To Contact BR IMAGING Diagnoses Encounter for screening mammogram for malignant neoplasm of breast Procedures CHYNA SCREENING W KOBE SCREENING DIGITAL BREAST TOMOSYNTHESIS BI SCREENING MAMMOGRAPHY BI 2-VIEW BREAST INC CAD Priyanka Smith MD [address] [place] [address] Br Imaging [address] [place] [address] Referral ID Status Reason Start Date Expiration Date V isits Requested Visits Authorized [id number] Closed Auto-Generate d Referral 08/09/2023 09/04/2024 1 1 [facility] for visit Narrative* Diagnostic Procedure Only (Routine) - Closed Specialty Diagnoses / Procedures Referred By Contac t Referred To Contact XR IMAGING Diagnoses Kidney stone Procedures XR ABDOMEN 1V SUPINE RADIOLOGIC EXAM ABDOMEN 1 VIEW Mathew Yang Jr., MD [address] [place] [address] [place] [address] Referral ID Status Reason Start Date Expiration Date V isits Requested Visits Authorized [id number] Closed Auto-Generate d Referral 11/04/2023 12/03/2023 1 1 [facility] for visit Narrative* Diagnostic Procedure Only (Routine) - Closed Specialty Diagnoses / Procedures Referred By Contac t Referred To Contact XR IMAGING Diagnoses Kidney stone Procedures XR ABDOMEN 1V SUPINE RADIOLOGIC EXAM ABDOMEN 1 VIEW Mathew Yang Jr., MD [address] [place] [address] [place] [address] Referral ID Status Reason Start Date Expiration Date V isits Requested Visits Authorized [id number] Closed Auto-Generate d Referral 11/25/2023 12/24/2024 1 1 [facility] for visit Narrative* Diagnostic Procedure Only (Routine) - Closed Specialty Diagnoses / Procedures Referred By Contac t Referred To Contact XR IMAGING Diagnoses Kidney stone Procedures XR ABDOMEN 1V SUPINE RADIOLOGIC EXAM ABDOMEN 1 VIEW Mathew Yang Jr., MD [address] [place] [address] [place] [address] Referral ID Status Reason Start Date Expiration Date V isits Requested Visits Authorized [id number] Closed Auto-Generate d Referral 08/11/2022 09/10/2023 1 1 [facility] Advance Directives No Advanced Directives Records FoundDocuments on File Type Date Recorded 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 Advance Directive(s) Advance Directive(s) 02/17/2021 7:57 AM Advance Directive(s) 03/20/2020 9:25 AM Advance Directive(s) 11/16/2018 11:45 AM Advance Directive(s) 07/11/2018 10:03 AM Advance Directive(s) 07/08/2018 10:07 AM Advance Directive(s) 06/14/2018 2:04 PM Advance Directive(s) 12/22/2017 8:23 AM Advance Directive(s) 11/23/2017 8:56 AM Advance Directive(s) 10/13/2017 12:11 PM Advance Directive(s) 08/31/2016 11:56 AM Advance Directive(s) 08/25/2016 5:17 PM Latest Code Status on File Code Status Date Activated Date Inactivated Comments Full Code 07/11/2018 8:24 AM 07/17/2018 4:46 PM Full Code Order Discussed With: Patient Full Code 07/08/2018 1:42 PM 07/10/2018 9:01 PM Documents on File Type Date Recorded 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 Advance Directive(s) Advance Directive(s) 02/17/2021 7:57 AM Advance Directive(s) 03/20/2020 9:25 AM Advance Directive(s) 11/16/2018 11:45 AM Advance Directive(s) 07/11/2018 10:03 AM Advance Directive(s) 07/08/2018 10:07 AM Advance Directive(s) 06/14/2018 2:04 PM Advance Directive(s) 12/22/2017 8:23 AM Advance Directive(s) 11/23/2017 8:56 AM Advance Directive(s) 10/13/2017 12:11 PM Advance Directive(s) 08/31/2016 11:56 AM Advance Directive(s) 08/25/2016 5:17 PM Latest Code Status on File Code Status Date Activated Date Inactivated Comments Full Code 07/11/2018 8:24 AM 07/17/2018 4:46 PM Full Code 07/08/2018 1:42 PM 07/10/2018 9:01 PM Latest Code Status on File Code Status Date Activated Date Inactivated Comments Full Code 07/11/2018 8:24 AM 07/17/2018 4:46 PM Question Answer Comments Full Code Order Discussed With: Patient Code Status History Code Status Date Activated Date Inactivated Comments Full Code 07/08/2018 1:42 PM 07/10/2018 9:01 PM Question Answer Comments Full Code Order Discussed With: Patient Latest Code Status on File Code Status Date Activated Date Inactivated Comments Full Code 07/11/2018 8:24 AM 07/17/2018 4:46 PM Question Answer Comments Full Code Order Discussed With: Patient Code Status History Code Status Date Activated Date Inactivated Comments Full Code 07/08/2018 1:42 PM 07/10/2018 9:01 PM Question Answer Comments Full Code Order Discussed With: Patient Date Activated Date Inactivated Comments 07/11/2018 8:24 AM 07/17/2018 4:46 PM Question Answer Comments Full Code Order Discussed With: Patient Date Activated Date Inactivated Comments 07/08/2018 1:42 PM 07/10/2018 9:01 PM Question Answer Comments Full Code Order Discussed With: Patient Date Activated Date Inactivated Comments 07/11/2018 8:24 AM 07/17/2018 4:46 PM Question Answer Comments Full Code Order Discussed With: Patient Date Activated Date Inactivated Comments 07/08/2018 1:42 PM 07/10/2018 9:01 PM Question Answer Comments Full Code Order Discussed With: Patient Reason for Referral Specialty Diagnoses / Procedures Referred By Contac t Referred To Contact CT IMAGING Diagnoses Interstitial pulmonary disease (HCC) Procedures CT CHEST WO IVCON DIAGNOSTIC COMPUTED TOMOGRAPHY THORAX W/O Gumaro Michel MD [address] [place] [address] Ct Imaging Referral ID Status Reason Start Date Expiration Date Visits Requested Visits Authorized [id number] Pending Review Auto-Generat ed Referral 02/12/2022 09/11/2022 1 1 Specialty Diagnoses / Procedures Referred By Contac t Referred To Contact CT IMAGING Diagnoses Lung nodules Procedures CT CHEST WO IVCON DIAGNOSTIC COMPUTED TOMOGRAPHY THORAX W/O Rowan Werner MD [address] [facility] [place] [address] Ct Imaging Referral ID Status Reason Start Date Expiration Date Visits Requested Visits Authorized [id number] Pending Review Auto-Generat ed Referral 03/18/2023 1 1 Specialty Diagnoses / Procedures Referred By Contac t Referred To Contact CT IMAGING Diagnoses Interstitial pulmonary disease (HCC) NSIP (nonspecific interstitial pneumonia) (HCC) Procedures CT CHEST WO IVCON DIAGNOSTIC COMPUTED TOMOGRAPHY THORAX W/O Rowan Werner MD [address] [place] [address] Ct Imaging Referral ID Status Reason Start Date Expiration Date Visits Requested Visits Authorized [id number] Pending Review Auto-Generat ed Referral 10/16/2022 05/17/2023 1 1 Specialty Diagnoses / Procedures Referred By Contac t Referred To Contact Urology Diagnoses 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 Procedures CONSULT TO UROLOGY OFFICE/OUTPATIENT NEW HIGH MDM 60-74 MINUTES John Mg MD [address] [place] [address] Referral ID Status Reason Start Date Expiration Date Visits Requested Visits Authorized [id number] Authorized PCP Requested Referral 06/17/2022 06/17/2023 1 1 Specialty Diagnoses / Procedures Referred By Gillianac t Referred To Contact CT IMAGING Diagnoses Gross hematuria Procedures CT UROGRAM WO/W IVCON CT ABD & PELVIS W/O CONTRST 1+ BODY REGNS John Mg MD [address] [place] [id number] Imaging [place] [facility] Referral ID Status Reason Start Date Expiration Date V isits Requested Visits Authorized [id number] Closed Auto-Generate d Referral 05/22/2022 07/31/2022 1 1 Specialty Diagnoses / Procedures Referred By Gillianac t Referred To Contact CT IMAGING Diagnoses Interstitial pulmonary disease (HCC) NSIP (nonspecific interstitial pneumonia) (HCC) Procedures CT CHEST WO IVCON DIAGNOSTIC COMPUTED TOMOGRAPHY THORAX W/O Rowan Werner MD [address] [facility] [place] [address] [place] [address] Referral ID Status Reason Start Date Expiration Date V isits Requested Visits Authorized [id number] Closed Auto-Generate d Referral 10/13/2022 12/12/2022 1 1 Specialty Diagnoses / Procedures Referred By Gillianac t Referred To Contact CT IMAGING Diagnoses Lung nodules Procedures CT CHEST WO IVCON DIAGNOSTIC COMPUTED TOMOGRAPHY THORAX W/O Rowan Werner MD [address] [place] [address] [place] [address] Referral ID Status Reason Start Date Expiration Date V isits Requested Visits Authorized [id number] Closed Auto-Generate d Referral 2022 05/25/2022 1 1 Specialty Diagnoses / Procedures Referred By Contac t Referred To Contact CT IMAGING Diagnoses Interstitial pulmonary disease (HCC) Procedures CT CHEST WO IVCON DIAGNOSTIC COMPUTED TOMOGRAPHY THORAX W/O Rowan Werner MD [address] [facility] [address] Ct Imaging [place] [address] Referral ID Status Reason Start Date Expiration Date Visits Requested Visits Authorized [id number] Authorized Auto-Generat ed Referral 11/01/2023 10/15/2024 1 1 Specialty Diagnoses / Procedures Referred By Contac t Referred To Contact [facility] Diagnoses Overactive bladder Procedures CONSULT TO PHYSICAL THERAPY PHYSICAL THERAPY EVALUATION HIGH COMPLEX 45 MINS Tariq Brooks APRN.[employer]IVER [address] [place] [address] x2 [facility] [address] [place] [address] Referral ID Status Reason Start Date Expiration Date Visits Requested Visits Authorized [id number] Pending Review Auto-Generat ed Referral 10/07/2023 10/06/2024 1 1 Specialty Diagnoses / Procedures Referred By Contac t Referred To Contact Neurology Diagnoses Tremor Procedures CONSULT TO NEUROLOGY OFFICE/OUTPATIENT [facility] 60 MINUTES Jacqueline Carpenter APRN.[employer]IVER [address] [place] [address] Referral ID Status Reason Start Date Expiration Date Visits Requested Visits Authorized [id number] Authorized PCP Requested Referral 10/14/2023 10/13/2024 1 1 Specialty Diagnoses / Procedures Referred By Contac t Referred To Contact Diagnoses Dyskinesia, tardive Procedures PROVIDER ORDERED FOLLOW UP OFFICE/OUTPATIENT [facility] 60 MINUTES Avtar Roberts MD [address] [place] [address] Referral ID Status Reason Start Date Expiration Date Visits Requested Visits Authorized [id number] Authorized PCP Requested Referral 01/13/2024 04/12/2024 1 1 Referral ID Status Reason Start Date Expiration Date Visits Requested Visits Authorized [id number] Authorized PCP Requested Referral 4 04/12/2024 1 1 Medications Administered Section Inactive Administered Medications - up to 3 most recent administrations Medication Order MAR Action Action Date Dose Rate Site lidocaine 10 mg/mL (1 %) 600 mg injection (XYLOCAINE) 600 mg (60 mL), OTHER, ONCE, 1 dose, On 01/15/23 at 1000 Given by LIP 01/15/2023 8:40 AM EDT 600 mg Summary Purpose Family History No Family History Records FoundNo Family History Records FoundNo Family History Records Found Additional Source Comments Source Comments (unrecognize d section and content) In the event this informatio n is protected by the Federal Confidentiality of Alcohol and Drug Abuse Patient Records regulations: The Federal rules restrict any use of the information to criminally investigate or prosecute any alcohol or drug abuse patient.[facility] the event this information is protected by the Federal Confidentiality of Alcohol and Drug Abuse Patient Records regulations: The Federal rules restrict any use of the information to criminally investigate or prosecute any alcohol or drug abuse patient.[facility] HospitalIn the event this information is protected by the Federal Confidentiality of Alcohol and Drug Abuse Patient Records regulations: The Federal rules restrict any use of the information to criminally investigate or prosecute any alcohol or drug abuse patient.[facility] HospitalIn the event this information is protected by the Federal Confidentiality of Alcohol and Drug Abuse Patient Records regulations: The Federal rules restrict any use of the information to criminally investigate or prosecute any alcohol or drug abuse patient.[facility] HospitalIn the event this information is protected by the Federal Confidentiality of Alcohol and Drug Abuse Patient Records regulations: The Federal rules restrict any use of the information to criminally investigate or prosecute any alcohol or drug abuse patient.[facility] HospitalIn the event this information is protected by the Federal Confidentiality of Alcohol and Drug Abuse Patient Records regulations: The Federal rules restrict any use of the information to criminally investigate or prosecute any alcohol or drug abuse patient.[facility] HospitalIn the event this information is protected by the Federal Confidentiality of Alcohol and Drug Abuse Patient Records regulations: The Federal rules restrict any use of the information to criminally investigate or prosecute any alcohol or drug abuse patient.[facility] HospitalIn the event this information is protected by the Federal Confidentiality of Alcohol and Drug Abuse Patient Records regulations: The Federal rules restrict any use of the information to criminally investigate or prosecute any alcohol or drug abuse patient.[facility] HospitalIn the event this information is protected by the Federal Confidentiality of Alcohol and Drug Abuse Patient Records regulations: The Federal rules restrict any use of the information to criminally investigate or prosecute any alcohol or drug abuse patient.[facility] HospitalIn the event this information is protected by the Federal Confidentiality of Alcohol and Drug Abuse Patient Records regulations: The Federal rules restrict any use of the information to criminally investigate or prosecute any alcohol or drug abuse patient.[facility] HospitalIn the event this information is protected by the Federal Confidentiality of Alcohol and Drug Abuse Patient Records regulations: The Federal rules restrict any use of the information to criminally investigate or prosecute any alcohol or drug abuse patient.[facility] HospitalIn the event this information is protected by the Federal Confidentiality of Alcohol and Drug Abuse Patient Records regulations: The Federal rules restrict any use of the information to criminally investigate or prosecute any alcohol or drug abuse patient.[facility] HospitalIn the event this information is protected by the Federal Confidentiality of Alcohol and Drug Abuse Patient Records regulations: The Federal rules restrict any use of the information to criminally investigate or prosecute any alcohol or drug abuse patient.[facility] HospitalIn the event this information is protected by the Federal Confidentiality of Alcohol and Drug Abuse Patient Records regulations: The Federal rules restrict any use of the information to criminally investigate or prosecute any alcohol or drug abuse patient.[facility] HospitalIn the event this information is protected by the Federal Confidentiality of Alcohol and Drug Abuse Patient Records regulations: The Federal rules restrict any use of the information to criminally investigate or prosecute any alcohol or drug abuse patient.[facility] HospitalIn the event this information is protected by the Federal Confidentiality of Alcohol and Drug Abuse Patient Records regulations: The Federal rules restrict any use of the information to criminally investigate or prosecute any alcohol or drug abuse patient.[facility] HospitalIn the event this information is protected by the Federal Confidentiality of Alcohol and Drug Abuse Patient Records regulations: The Federal rules restrict any use of the information to criminally investigate or prosecute any alcohol or drug abuse patient.[facility] HospitalIn the event this information is protected by the Federal Confidentiality of Alcohol and Drug Abuse Patient Records regulations: The Federal rules restrict any use of the information to criminally investigate or prosecute any alcohol or drug abuse patient.[facility] HospitalIn the event this information is protected by the Federal Confidentiality of Alcohol and Drug Abuse Patient Records regulations: The Federal rules restrict any use of the information to criminally investigate or prosecute any alcohol or drug abuse patient.[facility] HospitalIn the event this information is protected by the Federal Confidentiality of Alcohol and Drug Abuse Patient Records regulations: The Federal rules restrict any use of the information to criminally investigate or prosecute any alcohol or drug abuse patient.[facility] HospitalIn the event this information is protected by the Federal Confidentiality of Alcohol and Drug Abuse Patient Records regulations: The Federal rules restrict any use of the information to criminally investigate or prosecute any alcohol or drug abuse patient.[facility] HospitalIn the event this information is protected by the Federal Confidentiality of Alcohol and Drug Abuse Patient Records regulations: The Federal rules restrict any use of the information to criminally investigate or prosecute any alcohol or drug abuse patient.[facility] HospitalIn the event this information is protected by the Federal Confidentiality of Alcohol and Drug Abuse Patient Records regulations: The Federal rules restrict any use of the information to criminally investigate or prosecute any alcohol or drug abuse patient.[facility] HospitalIn the event this information is protected by the Federal Confidentiality of Alcohol and Drug Abuse Patient Records regulations: The Federal rules restrict any use of the information to criminally investigate or prosecute any alcohol or drug abuse patient.[facility] HospitalIn the event this information is protected by the Federal Confidentiality of Alcohol and Drug Abuse Patient Records regulations: The Federal rules restrict any use of the information to criminally investigate or prosecute any alcohol or drug abuse patient.[facility] HospitalIn the event this information is protected by the Federal Confidentiality of Alcohol and Drug Abuse Patient Records regulations: The Federal rules restrict any use of the information to criminally investigate or prosecute any alcohol or drug abuse patient.[facility] HospitalIn the event this information is protected by the Federal Confidentiality of Alcohol and Drug Abuse Patient Records regulations: The Federal rules restrict any use of the information to criminally investigate or prosecute any alcohol or drug abuse patient.[facility] HospitalIn the event this information is protected by the Federal Confidentiality of Alcohol and Drug Abuse Patient Records regulations: The Federal rules restrict any use of the information to criminally investigate or prosecute any alcohol or drug abuse patient.[facility] HospitalIn the event this information is protected by the Federal Confidentiality of Alcohol and Drug Abuse Patient Records regulations: The Federal rules restrict any use of the information to criminally investigate or prosecute any alcohol or drug abuse patient.[facility] HospitalIn the event this information is protected by the Federal Confidentiality of Alcohol and Drug Abuse Patient Records regulations: The Federal rules restrict any use of the information to criminally investigate or prosecute any alcohol or drug abuse patient.[facility] HospitalIn the event this information is protected by the Federal Confidentiality of Alcohol and Drug Abuse Patient Records regulations: The Federal rules restrict any use of the information to criminally investigate or prosecute any alcohol or drug abuse patient.[facility] HospitalIn the event this information is protected by the Federal Confidentiality of Alcohol and Drug Abuse Patient Records regulations: The Federal rules restrict any use of the information to criminally investigate or prosecute any alcohol or drug abuse patient.[facility] HospitalIn the event this information is protected by the Federal Confidentiality of Alcohol and Drug Abuse Patient Records regulations: The Federal rules restrict any use of the information to criminally investigate or prosecute any alcohol or drug abuse patient.[facility] HospitalIn the event this information is protected by the Federal Confidentiality of Alcohol and Drug Abuse Patient Records regulations: The Federal rules restrict any use of the information to criminally investigate or prosecute any alcohol or drug abuse patient.[facility] HospitalIn the event this information is protected by the Federal Confidentiality of Alcohol and Drug Abuse Patient Records regulations: The Federal rules restrict any use of the information to criminally investigate or prosecute any alcohol or drug abuse patient.[facility] HospitalIn the event this information is protected by the Federal Confidentiality of Alcohol and Drug Abuse Patient Records regulations: The Federal rules restrict any use of the information to criminally investigate or prosecute any alcohol or drug abuse patient.[facility] HospitalIn the event this information is protected by the Federal Confidentiality of Alcohol and Drug Abuse Patient Records regulations: The Federal rules restrict any use of the information to criminally investigate or prosecute any alcohol or drug abuse patient.[facility] HospitalIn the event this information is protected by the Federal Confidentiality of Alcohol and Drug Abuse Patient Records regulations: The Federal rules restrict any use of the information to criminally investigate or prosecute any alcohol or drug abuse patient.[facility] HospitalIn the event this information is protected by the Federal Confidentiality of Alcohol and Drug Abuse Patient Records regulations: The Federal rules restrict any use of the information to criminally investigate or prosecute any alcohol or drug abuse patient.[facility] HospitalIn the event this information is protected by the Federal Confidentiality of Alcohol and Drug Abuse Patient Records regulations: The Federal rules restrict any use of the information to criminally investigate or prosecute any alcohol or drug abuse patient.[facility] HospitalIn the event this information is protected by the Federal Confidentiality of Alcohol and Drug Abuse Patient Records regulations: The Federal rules restrict any use of the information to criminally investigate or prosecute any alcohol or drug abuse patient.[facility] HospitalIn the event this information is protected by the Federal Confidentiality of Alcohol and Drug Abuse Patient Records regulations: The Federal rules restrict any use of the information to criminally investigate or prosecute any alcohol or drug abuse patient.[facility] HospitalIn the event this information is protected by the Federal Confidentiality of Alcohol and Drug Abuse Patient Records regulations: The Federal rules restrict any use of the information to criminally investigate or prosecute any alcohol or drug abuse patient.[facility] HospitalIn the event this information is protected by the Federal Confidentiality of Alcohol and Drug Abuse Patient Records regulations: The Federal rules restrict any use of the information to criminally investigate or prosecute any alcohol or drug abuse patient.[facility] HospitalIn the event this information is protected by the Federal Confidentiality of Alcohol and Drug Abuse Patient Records regulations: The Federal rules restrict any use of the information to criminally investigate or prosecute any alcohol or drug abuse patient.[facility] HospitalIn the event this information is protected by the Federal Confidentiality of Alcohol and Drug Abuse Patient Records regulations: The Federal rules restrict any use of the information to criminally investigate or prosecute any alcohol or drug abuse patient.[facility] HospitalIn the event this information is protected by the Federal Confidentiality of Alcohol and Drug Abuse Patient Records regulations: The Federal rules restrict any use of the information to criminally investigate or prosecute any alcohol or drug abuse patient.[facility] HospitalIn the event this information is protected by the Federal Confidentiality of Alcohol and Drug Abuse Patient Records regulations: The Federal rules restrict any use of the information to criminally investigate or prosecute any alcohol or drug abuse patient.[facility] HospitalIn the event this information is protected by the Federal Confidentiality of Alcohol and Drug Abuse Patient Records regulations: The Federal rules restrict any use of the information to criminally investigate or prosecute any alcohol or drug abuse patient.[facility] ClinicIn the event this information is protected by the Federal Confidentiality of Alcohol and Drug Abuse Patient Records regulations: The Federal rules restrict any use of the information to criminally investigate or prosecute any alcohol or drug abuse patient.[facility] HospitalIn the event this information is protected by the Federal Confidentiality of Alcohol and Drug Abuse Patient Records regulations: The Federal rules restrict any use of the information to criminally investigate or prosecute any alcohol or drug abuse patient.[facility] HospitalIn the event this information is protected by the Federal Confidentiality of Alcohol and Drug Abuse Patient Records regulations: The Federal rules restrict any use of the information to criminally investigate or prosecute any alcohol or drug abuse patient.[facility] HospitalIn the event this information is protected by the Federal Confidentiality of Alcohol and Drug Abuse Patient Records regulations: The Federal rules restrict any use of the information to criminally investigate or prosecute any alcohol or drug abuse patient.[facility] HospitalIn the event this information is protected by the Federal Confidentiality of Alcohol and Drug Abuse Patient Records regulations: The Federal rules restrict any use of the information to criminally investigate or prosecute any alcohol or drug abuse patient.[facility] HospitalIn the event this information is protected by the Federal Confidentiality of Alcohol and Drug Abuse Patient Records regulations: The Federal rules restrict any use of the information to criminally investigate or prosecute any alcohol or drug abuse patient.[facility] HospitalIn the event this information is protected by the Federal Confidentiality of Alcohol and Drug Abuse Patient Records regulations: The Federal rules restrict any use of the information to criminally investigate or prosecute any alcohol or drug abuse patient.[facility] HospitalIn the event this information is protected by the Federal Confidentiality of Alcohol and Drug Abuse Patient Records regulations: The Federal rules restrict any use of the information to criminally investigate or prosecute any alcohol or drug abuse patient.[facility] HospitalIn the event this information is protected by the Federal Confidentiality of Alcohol and Drug Abuse Patient Records regulations: The Federal rules restrict any use of the information to criminally investigate or prosecute any alcohol or drug abuse patient.[facility] HospitalIn the event this information is protected by the Federal Confidentiality of Alcohol and Drug Abuse Patient Records regulations: The Federal rules restrict any use of the information to criminally investigate or prosecute any alcohol or drug abuse patient.[facility] HospitalIn the event this information is protected by the Federal Confidentiality of Alcohol and Drug Abuse Patient Records regulations: The Federal rules restrict any use of the information to criminally investigate or prosecute any alcohol or drug abuse patient.[facility] HospitalIn the event this information is protected by the Federal Confidentiality of Alcohol and Drug Abuse Patient Records regulations: The Federal rules restrict any use of the information to criminally investigate or prosecute any alcohol or drug abuse patient.[facility] HospitalIn the event this information is protected by the Federal Confidentiality of Alcohol and Drug Abuse Patient Records regulations: The Federal rules restrict any use of the information to criminally investigate or prosecute any alcohol or drug abuse patient.[facility] HospitalIn the event this information is protected by the Federal Confidentiality of Alcohol and Drug Abuse Patient Records regulations: The Federal rules restrict any use of the information to criminally investigate or prosecute any alcohol or drug abuse patient.[facility] HospitalIn the event this information is protected by the Federal Confidentiality of Alcohol and Drug Abuse Patient Records regulations: The Federal rules restrict any use of the information to criminally investigate or prosecute any alcohol or drug abuse patient.[facility] HospitalIn the event this information is protected by the Federal Confidentiality of Alcohol and Drug Abuse Patient Records regulations: The Federal rules restrict any use of the information to criminally investigate or prosecute any alcohol or drug abuse patient.[facility] HospitalIn the event this information is protected by the Federal Confidentiality of Alcohol and Drug Abuse Patient Records regulations: The Federal rules restrict any use of the information to criminally investigate or prosecute any alcohol or drug abuse patient.[facility] HospitalIn the event this information is protected by the Federal Confidentiality of Alcohol and Drug Abuse Patient Records regulations: The Federal rules restrict any use of the information to criminally investigate or prosecute any alcohol or drug abuse patient.[facility] HospitalIn the event this information is protected by the Federal Confidentiality of Alcohol and Drug Abuse Patient Records regulations: The Federal rules restrict any use of the information to criminally investigate or prosecute any alcohol or drug abuse patient.[facility] HospitalIn the event this information is protected by the Federal Confidentiality of Alcohol and Drug Abuse Patient Records regulations: The Federal rules restrict any use of the information to criminally investigate or prosecute any alcohol or drug abuse patient.[facility] HospitalIn the event this information is protected by the Federal Confidentiality of Alcohol and Drug Abuse Patient Records regulations: The Federal rules restrict any use of the information to criminally investigate or prosecute any alcohol or drug abuse patient.[facility] HospitalIn the event this information is protected by the Federal Confidentiality of Alcohol and Drug Abuse Patient Records regulations: The Federal rules restrict any use of the information to criminally investigate or prosecute any alcohol or drug abuse patient.[facility] HospitalIn the event this information is protected by the Federal Confidentiality of Alcohol and Drug Abuse Patient Records regulations: The Federal rules restrict any use of the information to criminally investigate or prosecute any alcohol or drug abuse patient.[facility] HospitalIn the event this information is protected by the Federal Confidentiality of Alcohol and Drug Abuse Patient Records regulations: The Federal rules restrict any use of the information to criminally investigate or prosecute any alcohol or drug abuse patient.[facility] HospitalIn the event this information is protected by the Federal Confidentiality of Alcohol and Drug Abuse Patient Records regulations: The Federal rules restrict any use of the information to criminally investigate or prosecute any alcohol or drug abuse patient.[facility] HospitalIn the event this information is protected by the Federal Confidentiality of Alcohol and Drug Abuse Patient Records regulations: The Federal rules restrict any use of the information to criminally investigate or prosecute any alcohol or drug abuse patient.[facility] HospitalIn the event this information is protected by the Federal Confidentiality of Alcohol and Drug Abuse Patient Records regulations: The Federal rules restrict any use of the information to criminally investigate or prosecute any alcohol or drug abuse patient.[facility] HospitalIn the event this information is protected by the Federal Confidentiality of Alcohol and Drug Abuse Patient Records regulations: The Federal rules restrict any use of the information to criminally investigate or prosecute any alcohol or drug abuse patient.[facility] HospitalIn the event this information is protected by the Federal Confidentiality of Alcohol and Drug Abuse Patient Records regulations: The Federal rules restrict any use of the information to criminally investigate or prosecute any alcohol or drug abuse patient.[facility] HospitalIn the event this information is protected by the Federal Confidentiality of Alcohol and Drug Abuse Patient Records regulations: The Federal rules restrict any use of the information to criminally investigate or prosecute any alcohol or drug abuse patient.[facility] HospitalIn the event this information is protected by the Federal Confidentiality of Alcohol and Drug Abuse Patient Records regulations: The Federal rules restrict any use of the information to criminally investigate or prosecute any alcohol or drug abuse patient.[facility] HospitalIn the event this information is protected by the Federal Confidentiality of Alcohol and Drug Abuse Patient Records regulations: The Federal rules restrict any use of the information to criminally investigate or prosecute any alcohol or drug abuse patient.[facility] HospitalIn the event this information is protected by the Federal Confidentiality of Alcohol and Drug Abuse Patient Records regulations: The Federal rules restrict any use of the information to criminally investigate or prosecute any alcohol or drug abuse patient.[facility] HospitalIn the event this information is protected by the Federal Confidentiality of Alcohol and Drug Abuse Patient Records regulations: The Federal rules restrict any use of the information to criminally investigate or prosecute any alcohol or drug abuse patient.[facility] HospitalIn the event this information is protected by the Federal Confidentiality of Alcohol and Drug Abuse Patient Records regulations: The Federal rules restrict any use of the information to criminally investigate or prosecute any alcohol or drug abuse patient.[facility] HospitalIn the event this information is protected by the Federal Confidentiality of Alcohol and Drug Abuse Patient Records regulations: The Federal rules restrict any use of the information to criminally investigate or prosecute any alcohol or drug abuse patient.[facility] HospitalIn the event this information is protected by the Federal Confidentiality of Alcohol and Drug Abuse Patient Records regulations: The Federal rules restrict any use of the information to criminally investigate or prosecute any alcohol or drug abuse patient.[facility] HospitalIn the event this information is protected by the Federal Confidentiality of Alcohol and Drug Abuse Patient Records regulations: The Federal rules restrict any use of the information to criminally investigate or prosecute any alcohol or drug abuse patient.[facility] HospitalIn the event this information is protected by the Federal Confidentiality of Alcohol and Drug Abuse Patient Records regulations: The Federal rules restrict any use of the information to criminally investigate or prosecute any alcohol or drug abuse patient.[facility] HospitalIn the event this information is protected by the Federal Confidentiality of Alcohol and Drug Abuse Patient Records regulations: The Federal rules restrict any use of the information to criminally investigate or prosecute any alcohol or drug abuse patient.[facility] HospitalIn the event this information is protected by the Federal Confidentiality of Alcohol and Drug Abuse Patient Records regulations: The Federal rules restrict any use of the information to criminally investigate or prosecute any alcohol or drug abuse patient.[facility] HospitalIn the event this information is protected by the Federal Confidentiality of Alcohol and Drug Abuse Patient Records regulations: The Federal rules restrict any use of the information to criminally investigate or prosecute any alcohol or drug abuse patient.[facility] HospitalIn the event this information is protected by the Federal Confidentiality of Alcohol and Drug Abuse Patient Records regulations: The Federal rules restrict any use of the information to criminally investigate or prosecute any alcohol or drug abuse patient.[facility] HospitalIn the event this information is protected by the Federal Confidentiality of Alcohol and Drug Abuse Patient Records regulations: The Federal rules restrict any use of the information to criminally investigate or prosecute any alcohol or drug abuse patient.[facility] HospitalIn the event this information is protected by the Federal Confidentiality of Alcohol and Drug Abuse Patient Records regulations: The Federal rules restrict any use of the information to criminally investigate or prosecute any alcohol or drug abuse patient.[facility] HospitalIn the event this information is protected by the Federal Confidentiality of Alcohol and Drug Abuse Patient Records regulations: The Federal rules restrict any use of the information to criminally investigate or prosecute any alcohol or drug abuse patient.[facility] HospitalIn the event this information is protected by the Federal Confidentiality of Alcohol and Drug Abuse Patient Records regulations: The Federal rules restrict any use of the information to criminally investigate or prosecute any alcohol or drug abuse patient.[facility] HospitalIn the event this information is protected by the Federal Confidentiality of Alcohol and Drug Abuse Patient Records regulations: The Federal rules restrict any use of the information to criminally investigate or prosecute any alcohol or drug abuse patient.[facility] HospitalIn the event this information is protected by the Federal Confidentiality of Alcohol and Drug Abuse Patient Records regulations: The Federal rules restrict any use of the information to criminally investigate or prosecute any alcohol or drug abuse patient.[facility] HospitalIn the event this information is protected by the Federal Confidentiality of Alcohol and Drug Abuse Patient Records regulations: The Federal rules restrict any use of the information to criminally investigate or prosecute any alcohol or drug abuse patient.[facility]In the event this information is protected by the Federal Confidentiality of Alcohol and Drug Abuse Patient Records regulations: The Federal rules restrict any use of the information to criminally investigate or prosecute any alcohol or drug abuse patient.[facility] HospitalIn the event this information is protected by the Federal Confidentiality of Alcohol and Drug Abuse Patient Records regulations: The Federal rules restrict any use of the information to criminally investigate or prosecute any alcohol or drug abuse patient.[facility] HospitalIn the event this information is protected by the Federal Confidentiality of Alcohol and Drug Abuse Patient Records regulations: The Federal rules restrict any use of the information to criminally investigate or prosecute any alcohol or drug abuse patient.[facility] HospitalIn the event this information is protected by the Federal Confidentiality of Alcohol and Drug Abuse Patient Records regulations: The Federal rules restrict any use of the information to criminally investigate or prosecute any alcohol or drug abuse patient.[facility] Care Teams (unrecognized sec tion and content) Reeler Operator Relationship Specialty Start Date End Date Priyanka Smith MD [address] [place] [address] PCP - General Family Practice 12/22/17 Regulo Mendoza MD Primary Staff Physician Nephrology 06/12/21 Reeler Operator Relationship Specialty Start Date End Date Priyanka Smtih MD [address] [place] [address] PCP - General Family Practice 12/22/17 Regulo Mendoza MD Primary Staff Physician Nephrology 06/12/21 Reeler Operator Relationship Specialty Start Date End Date Priyanka Smith MD [address] [place] [address] PCP - General Family Practice 12/22/17 Regulo Mendoza MD Primary Staff Physician Nephrology 06/12/21 Reeler Operator Relationship Specialty Start Date End Date Priyanka Smith MD [address] [place] [address] PCP - General Family Practice 12/22/17 Regulo Mendoza MD Primary Staff Physician Nephrology 06/12/21 Reeler Operator Relationship Specialty Start Date End Date Priyanka Smith MD [address] [place] [address] PCP - General Family Practice 12/22/17 Regulo Mendoza MD Primary Staff Physician Nephrology 06/12/21 Reeler Operator Relationship Specialty Start Date End Date Priyanka Smith MD [address] [place] [address] PCP - General Family Practice 12/22/17 Regulo Mendoza MD Primary Staff Physician Nephrology 06/12/21 Reeler Operator Relationship Specialty Start Date End Date Priyanka Smith MD [address] [place] [address] PCP - General Family Practice 12/22/17 Regulo Mendoza MD Primary Staff Physician Nephrology 06/12/21 Reeler Operator Relationship Specialty Start Date End Date Priyanka Smith MD [address] [place] [address] PCP - General Family Practice 12/22/17 Regulo Mendoza MD Primary Staff Physician Nephrology 06/12/21 Reeler Operator Relationship Specialty Start Date End Date Priyanka Smith MD [address] [place] [address] PCP - General Family Practice 12/22/17 Regulo Mendoza MD Primary Staff Physician Nephrology 06/12/21 Reeler Operator Relationship Specialty Start Date End Date Priyanka Smith MD [address] [place] [address] PCP - General Family Medicine 12/22/17 Regulo Mendoza MD Primary Staff Physician Nephrology 06/12/21 Reeler Operator Relationship Specialty Start Date End Date Priyanka Smith MD [address] [place] [address] PCP - General Family Medicine 12/22/17 Regulo Mendoza MD Primary Staff Physician Nephrology 06/12/21 Reeler Operator Relationship Specialty Start Date End Date Priyanka Smith MD [address] [place] [address] PCP - General Family Medicine 12/22/17 Regulo Mendoza MD Primary Staff Physician Nephrology 06/12/21 Reeler Operator Relationship Specialty Start Date End Date Priyanka Smith MD [address] [place] [address] PCP - General Family Medicine 12/22/17 Regulo Mendoza MD Primary Staff Physician Nephrology 06/12/21 Reeler Operator Relationship Specialty Start Date End Date Priyanka Smith MD [address] [place] [address] PCP - General Family Medicine 12/22/17 Regulo Mendoza MD Primary Staff Physician Nephrology 06/12/21 Reeler Operator Relationship Specialty Start Date End Date Priyanka Smith MD [address] [place] [address] PCP - General Family Medicine 12/22/17 Regulo Mendoza MD Primary Staff Physician Nephrology 06/12/21 Reeler Operator Relationship Specialty Start Date End Date Priyanka Smith MD [address] [place] [address] PCP - General Family Medicine 12/22/17 Regulo Mendoza MD Primary Staff Physician Nephrology 06/12/21 Reeler Operator Relationship Specialty Start Date End Date Priyanka Smith MD [address] [place] [address] PCP - General Family Medicine 12/22/17 Regulo Mendoza MD Primary Staff Physician Nephrology 06/12/21 Reeler Operator Relationship Specialty Start Date End Date Priyanka Smith MD [address] [place] [address] PCP - General Family Medicine 12/22/17 Regulo Mendoza MD Primary Staff Physician Nephrology 06/12/21 Reeler Operator Relationship Specialty Start Date End Date Priyanka Smith MD [address] [place] [address] PCP - General Family Medicine 12/22/17 Regulo Mendoza MD Primary Staff Physician Nephrology 06/12/21 Reeler Operator Relationship Specialty Start Date End Date Priyanka Smith MD [address] [place] [address] PCP - General Family Medicine 12/22/17 Regulo Mendoza MD [address] [place] [address] Primary Staff Physician Nephrology 06/12/21 Reeler Operator Relationship Specialty Start Date End Date Priyanka Smith MD [address] [place] [address] PCP - General Family Medicine 12/22/17 Regulo Mendoza MD [address] [place] [address] Primary Staff Physician Nephrology 06/12/21 Reeler Operator Relationship Specialty Start Date End Date Priyanka Smith MD [address] [place] [address] PCP - General Family Medicine 12/22/17 Regulo Mendoza MD [address] [place] [address] Primary Staff Physician Nephrology 06/12/21 Reeler Operator Relationship Specialty Start Date End Date Priyanka Smith MD [address] [place] [address] PCP - General Family Medicine 12/22/17 Regulo Mendoza MD [address] [place] [address] Primary Staff Physician Nephrology 06/12/21 Reeler Operator Relationship Specialty Start Date End Date Priyanka Smith MD [address] [place] [address] PCP - General Family Medicine 12/22/17 Regulo Mendoza MD [address] [place] [address] Primary Staff Physician Nephrology 06/12/21 Reeler Operator Relationship Specialty Start Date End Date Priyanka Smith MD [address] [place] [address] PCP - General Family Medicine 12/22/17 Regulo Mendoza MD [address] [place] [address] Primary Staff Physician Nephrology 06/12/21 Reeler Operator Relationship Specialty Start Date End Date Priyanka Smith MD [address] [place] [address] PCP - General Family Medicine 12/22/17 Regulo Mendoza MD [address] [place] [address] Primary Staff Physician Nephrology 06/12/21 Reeler Operator Relationship Specialty Start Date End Date Priyanka Smith MD [address] [place] [address] PCP - General Family Medicine 12/22/17 Regulo Mendoza MD [address] [place] [address] Primary Staff Physician Nephrology 06/12/21 Reeler Operator Relationship Specialty Start Date End Date Priyanka Smith MD [address] [place] [address] PCP - General Family Medicine 12/22/17 Regulo Mendoza MD [address] [place] [address] Primary Staff Physician Nephrology 06/12/21 Reeler Operator Relationship Specialty Start Date End Date Priyanka Smith MD [address] [place] [address] PCP - General Family Medicine 12/22/17 Regulo Mendoza MD [address] [place] [address] Primary Staff Physician Nephrology 06/12/21 Reeler Operator Relationship Specialty Start Date End Date Priyanka Smith MD [address] [place] [address] PCP - General Family Medicine 12/22/17 Regulo Mendoza MD [address] [place] [address] Primary Staff Physician Nephrology 06/12/21 Reeler Operator Relationship Specialty Start Date End Date Priyanka Smith MD [address] [place] [address] PCP - General Family Medicine 12/22/17 Regulo Mendoza MD [address] [place] [address] Primary Staff Physician Nephrology 06/12/21 Reeler Operator Relationship Specialty Start Date End Date Priyanka Smith MD [address] [place] [address] PCP - General Family Medicine 12/22/17 Regulo Mendoza MD [address] [place] [address] Primary Staff Physician Nephrology 06/12/21 Reeler Operator Relationship Specialty Start Date End Date Priyanka Smith MD [address] [place] [address] PCP - General Family Medicine 12/22/17 Regulo Mendoza MD [address] [place] [address] Primary Staff Physician Nephrology 06/12/21 Reeler Operator Relationship Specialty Start Date End Date Priyanka Smith MD [address] [place] [address] PCP - General Family Medicine 12/22/17 Regulo Mendoza MD [address] [place] [address] Primary Staff Physician Nephrology 06/12/21 Reeler Operator Relationship Specialty Start Date End Date Priyanka Smith MD [address] [place] [address] PCP - General Family Medicine 12/22/17 Regulo Mendoza MD [address] [place] [address] Primary Staff Physician Nephrology 06/12/21 Reeler Operator Relationship Specialty Start Date End Date Priyanka Smith MD [address] [place] [address] PCP - General Family Medicine 12/22/17 Regulo Mendoza MD [address] [place] [address] Primary Staff Physician Nephrology 06/12/21 Reeler Operator Relationship Specialty Start Date End Date Priyanka Smith MD [address] [place] [address] PCP - General Family Medicine 12/22/17 Regulo Mendoza MD [address] [place] [address] Primary Staff Physician Nephrology 06/12/21 Reeler Operator Relationship Specialty Start Date End Date Priyanka Smith MD [address] [place] [address] PCP - General Family Medicine 12/22/17 Regulo Mendoza MD [address] [place], [place] 861541 Primary Staff Physician Nephrology 06/12/21 Reeler Operator Relationship Specialty Start Date End Date Priyanka Smith MD [address] [place], [place] 475941 PCP - General Family Medicine 12/22/17 Regulo Mendoza MD [address] [place], [place] 91027691 Primary Staff Physician Nephrology 06/12/21 Reeler Operator Relationship Specialty Start Date End Date Priyanka Smith MD [address] [place], [place] 846541 PCP - General Family Medicine 12/22/17 Regulo Mendoza MD [address] [place], [place] 948551 Primary Staff Physician Nephrology 06/12/21 Reeler Operator Relationship Specialty Start Date End Date Priyanka Smith MD [address] [place], [place] 217141 PCP - General Family Medicine 12/22/17 Regulo Mendoza MD [address] [place], [place] 27103691 Primary Staff Physician Nephrology 06/12/21 Reeler Operator Relationship Specialty Start Date End Date Priyanka Smith MD [address] [place], [place] [id number] PCP - General Family Medicine 12/22/17 Regulo Mendoza MD [address] [place], [place] 909951 Primary Staff Physician Nephrology 06/12/21 Reeler Operator Relationship Specialty Start Date End Date Priyanka Smith MD [address] [place], [place] 422711 PCP - General Family Medicine 12/22/17 Regulo Mendoza MD [address] [place] [address] Primary Staff Physician Nephrology 06/12/21 Reeler Operator Relationship Specialty Start Date End Date Priyanka Smith MD [address] [place] [address] PCP - General Family Medicine 12/22/17 Regulo Mendoza MD [address] [place] [address] Primary Staff Physician Nephrology 06/12/21 Reeler Operator Relationship Specialty Start Date End Date Priyanka Smith MD [address] [place], [place] 713651 PCP - General Family Medicine 12/22/17 Regulo Mendoza MD [address] [place], [place] 75507691 Primary Staff Physician Nephrology 06/12/21 Reeler Operator Relationship Specialty Start Date End Date Priyanka Smith MD [address] [place] [address] PCP - General Family Medicine 12/22/17 Regulo Mendoza MD [address] [place] [address] Primary Staff Physician Nephrology 06/12/21 Reeler Operator Relationship Specialty Start Date End Date Priyanka Smith MD [address] [place] [address] PCP - General Family Medicine 12/22/17 Regulo Mendoza MD [address] [place] [address] Primary Staff Physician Nephrology 06/12/21 Reeler Operator Relationship Specialty Start Date End Date Priyanka Smith MD [address] [place], [place] 165131 PCP - General Family Medicine 12/22/17 Regulo Mendoza MD [address] [place], [place] 172731 Primary Staff Physician Nephrology 06/12/21 Reeler Operator Relationship Specialty Start Date End Date Priyanka Smith MD [address] [place], [place] 331701 PCP - General Family Medicine 12/22/17 Regulo Mendoza MD [address] [place] [address] Primary Staff Physician Nephrology 06/12/21 Reeler Operator Relationship Specialty Start Date End Date Priyanka Smith MD [address] [place], [place] 036791 PCP - General Family Medicine 12/22/17 Regulo Mendoza MD [address] [place] [address] Primary Staff Physician Nephrology 06/12/21 Reeler Operator Relationship Specialty Start Date End Date Priyanka Smith MD [address] [place], [place] 119981 PCP - General Family Medicine 12/22/17 Regulo Mendoza MD [address] [place] [address] Primary Staff Physician Nephrology 06/12/21 Reeler Operator Relationship Specialty Start Date End Date Priyanka Smith MD [address] [place], [place] 803871 PCP - General Family Medicine 12/22/17 Regulo Mendoza MD [address] [place], [place] 539661 Primary Staff Physician Nephrology 06/12/21 Reeler Operator Relationship Specialty Start Date End Date Priyanka Smith MD [address] [place], [place] 873641 PCP - General Family Medicine 12/22/17 Regulo Mendoza MD [address] [place], [place] 966791 Primary Staff Physician Nephrology 06/12/21 Reeler Operator Relationship Specialty Start Date End Date Priyanka Smith MD [address] [facility], [place] 560191 PCP - General Family Medicine 12/22/17 Regulo Mendoza MD [address] [place] [address] Primary Staff Physician Nephrology 06/12/21 Reeler Operator Relationship Specialty Start Date End Date Priyanka Smith MD [address] [facility], [place] 479621 PCP - General Family Medicine 12/22/17 Regulo Mendoza MD [address] [place] [address] Primary Staff Physician Nephrology 06/12/21 Reeler Operator Relationship Specialty Start Date End Date Priyanka Smith MD [address] [facility], [place] 902321 PCP - General Family Medicine 12/22/17 Regulo Mendoza MD [address] [facility], [place] 480841 Primary Staff Physician Nephrology 06/12/21 Reeler Operator Relationship Specialty Start Date End Date Priyanka Smith MD [address] [facility], [place] 531781 PCP - General Family Medicine 12/22/17 Regulo Mendoza MD [address] [facility], [place] 887411 Primary Staff Physician Nephrology 06/12/21 Reeler Operator Relationship Specialty Start Date End Date Priyanka Smith MD [address] [place], [place] 515141 PCP - General Family Medicine 12/22/17 Regulo Mendoza MD [address] [place] [address] Primary Staff Physician Nephrology 06/12/21 Reeler Operator Relationship Specialty Start Date End Date Priyanka Smith MD [address] [place], [place] 402821 PCP - General Family Medicine 12/22/17 Regulo Mendoza MD [address] [place], [place] 215301 Primary Staff Physician Nephrology 06/12/21 Reeler Operator Relationship Specialty Start Date End Date Priyanka Smith MD [address] [place], [place] 264001 PCP - General Family Medicine 12/22/17 Regulo Mendoza MD [address] [place], [place] 193371 Primary Staff Physician Nephrology 06/12/21 Reeler Operator Relationship Specialty Start Date End Date Priyanka Smith MD [address] [place], [place] 331491 PCP - General Family Medicine 12/22/17 Regulo Mendoza MD [address] [place], [place] 120481 Primary Staff Physician Nephrology 06/12/21 Reeler Operator Relationship Specialty Start Date End Date Priyanka Smith MD [address] [place], [place] 414921 PCP - General Family Medicine 12/22/17 Regulo Mendoza MD [address] [place], [place] 316111 Primary Staff Physician Nephrology 06/12/21 Reeler Operator Relationship Specialty Start Date End Date Priyanka Smith MD [address] [place], [place] 855561 PCP - General Family Medicine 12/22/17 Regulo Mendoza MD [address] [place], [place] 980761 Primary Staff Physician Nephrology 06/12/21 Reeler Operator Relationship Specialty Start Date End Date Priyanka Smith MD [address] [place], [place] 714601 PCP - General Family Medicine 12/22/17 Regulo Mendoza MD [address] [place] [address] Primary Staff Physician Nephrology 06/12/21 Reeler Operator Relationship Specialty Start Date End Date Priyanka Smith MD [address] [place], [place] 74771691 PCP - General Family Medicine 12/22/17 Regulo Mendoza MD [address] [place], [place] 989771 Primary Staff Physician Nephrology 06/12/21 Reeler Operator Relationship Specialty Start Date End Date Priyanka Smith MD [address] [place], [place] 501631 PCP - General Family Medicine 12/22/17 Regulo Mendoza MD [address] [place] [address] Primary Staff Physician Nephrology 06/12/21 Reeler Operator Relationship Specialty Start Date End Date Priyanka Smith MD [address] [place], [place] 933761 PCP - General Family Medicine 12/22/17 Regulo Mendoza MD [address] [place] [address] Primary Staff Physician Nephrology 06/12/21 Reeler Operator Relationship Specialty Start Date End Date Priyanka Smith MD [address] [place], [place] 935971 PCP - General Family Medicine 12/22/17 Regulo Mendoza MD [address] [place], [place] 250951 Primary Staff Physician Nephrology 06/12/21 Reeler Operator Relationship Specialty Start Date End Date Priyanka Smith MD [address] [place], [place] 15606691 PCP - General Family Medicine 12/22/17 Regulo Mendoza MD [address] [place], [place] 789741 Primary Staff Physician Nephrology 06/12/21 Reeler Operator Relationship Specialty Start Date End Date Priyanka Smith MD [address] [place], [place] 028521 PCP - General Family Medicine 12/22/17 Regulo Mendoza MD [address] [place], [place] 808381 Primary Staff Physician Nephrology 06/12/21 Reeler Operator Relationship Specialty Start Date End Date Priyanka Smith MD [address] [place], [place] 41660691 PCP - General Family Medicine 12/22/17 Regulo Mendoza MD [address] [place] [address] Primary Staff Physician Nephrology 06/12/21 Reeler Operator Relationship Specialty Start Date End Date Priyanka Smith MD [address] [place], [place] 598521 PCP - General Family Medicine 12/22/17 Regulo Mendoza MD [address] [place] [address] Primary Staff Physician Nephrology 06/12/21 Reeler Operator Relationship Specialty Start Date End Date Priyanka Smith MD [address] [place], [place] [id number] PCP - General Family Medicine 12/22/17 Regulo Mendoza MD [address] [place], [place] 680361 Primary Staff Physician Nephrology 06/12/21 Reeler Operator Relationship Specialty Start Date End Date Priyanka Smith MD [address] [place], [place] 397881 PCP - General Family Medicine 12/22/17 Regulo Mendoza MD [address] [place] [address] Primary Staff Physician Nephrology 06/12/21 Reeler Operator Relationship Specialty Start Date End Date Priyanka Smith MD [address] [place], [place] 771091 PCP - General Family Medicine 12/22/17 Regulo Mendoza MD [address] [place] [address] Primary Staff Physician Nephrology 06/12/21 Reeler Operator Relationship Specialty Start Date End Date Priyanka Smith MD [address] [place], [place] 843601 PCP - General Family Medicine 12/22/17 Reeler Operator Relationship Specialty Start Date End Date Priyanka Smith MD [address] [place], [place] 793391 PCP - General Family Medicine 12/22/17 Regulo Mendoza MD [address] [place] [address] Primary Staff Physician Nephrology 06/12/21 Reason for Visit (unrecogniz ed section and content) Reason Comments Follow Up Specialty Diagnoses / Procedures Referred By Contezio t Referred To Contact UROL DENTAL MOLD MAKER Diagnoses OAB (overactive bladder) Procedures BOTULINUM TOXIN A PER 1 UNIT CYSTOURETHROSCOPY INJ CHEMODENERVATION BLADDER Wiley Benitez MD [address] [facility] [address] [place] [address] Distribution Sales Manager [employer] [address] [facility] [address] [place] [address] Referral ID Status Reason Start Date Expiration Date V isits Requested Visits Authorized [id number] Authorized 11/04/2023 11/02/2024 5 5 Reason Comments Spirometry Specialty Diagnoses / Procedures Referred By Contac t Referred To Contact [facility] Diagnoses NSIP (nonspecific interstitial pneumonia) ([facility]) Procedures SPIROMETRY BASELINE ONLY SPIROMETRY WO BRONCHODILATOR Gumaro Cuenca MD [address] [place] [address] Respiratory [facility] [address] [place] [id number] Referral ID Status Reason Start Date Expiration Date V isits Requested Visits Authorized [id number] Closed Auto-Generate d Referral 08/11/2021 03/13/2022 1 1 Reason Comments Established Patient Reason Comments UTI Reason Comments Orders Reason Onset Date Comments Refill Request 11/26/2021 Reason Comments Radiology US Specialty Diagnoses / Procedures Referred By Contac t Referred To Contact US IMAGING Diagnoses Cystocele, midline Urinary urgency Urinary frequency Procedures US FEMALE PELVIS TRANSVAG US TRANSVAGINAL Muriel Lopez APRN.[facility] [address] [place] [address] Us Imaging Referral ID Status Reason Start Date Expiration Date V isits Requested Visits Authorized [id number] Closed Auto-Generate d Referral 11/26/2021 12/26/2022 1 1 Reason Onset Date Comments Refill Request 12/12/2021 Reason Comments F/U 6 Month Reason Comments Imm/Inj Reason Comments Appointment Reason Comments Established Patient 6 month follow up Reason Comments Results - Ct Nodule Reason Onset Date Comments Refill Request 03/04/2022 Nystatin Reason Comments Results Specialty Diagnoses / Procedures Referred By Contac t Referred To Contact Diagnoses Cystocele, midline Urinary urgency Urinary frequency Procedures CONSULT TO URO GYNECOLOGY OFFICE/OUTPATIENT [facility] 60-74 MINUTES JessicaMuriel APRN.[facility] [address] [place] [address] Referral ID Status Reason Start Date Expiration Date V isits Requested Visits Authorized [id number] Closed PCP Requested Referral Auto-Generated Referral 11/26/2021 11/26/2022 1 1 Reason Comments Future Appointment Schedule UDS Reason Onset Date Comments Refill Request 03/31/2022 Reason Comments Urinary Frequency With burning x2.5 we eks, already previously treated with Bactrim 03/17 Reason Onset Date Comments Refill Request 04/11/2022 Reason Comments Recheck follow up CT Reason Onset Date Comments Refill Request 04/21/2022 Nystatin Reason Comments Future Appointment Cystoscopy possible Botox Reason Onset Date Comments Refill Request 06/12/2022 Reason Comments 6 Month Exam Reason Comments Sore Throat Fever x6 days Reason Comments Follow Up Urinary Frequency Reason Comments Cough Congestion x2 weeks Reason Onset Date Comments Refill Request 08/19/2022 Reason Comments Urinary Problem Reason Comments Established Patient Discuss renal scan r esults Specialty Diagnoses / Procedures Referred By Contac t Referred To Contact [facility] Diagnoses ILD (interstitial lung disease) ([facility]) Procedures SPIROMETRY BASELINE ONLY SPMTRY W/VC EXPIRATORY ANYA W/WO MXML VOL VNTJ Rowan Temple MD [address] [place] [address] Respiratory [facility] [address] [place] [id number] Referral ID Status Reason Start Date Expiration Date V isits Requested Visits Authorized [id number] Closed Auto-Generate d Referral 10/30/2022 11/29/2023 1 1 Specialty Diagnoses / Procedures Referred By Contac t Referred To Contact [facility] Diagnoses ILD (interstitial lung disease) ([facility]) Procedures LUNG VOLUMES Rowan Temple MD [address] [place] [address] Res[facility] [address] [place] [address] Referral ID Status Reason Start Date Expiration Date V isits Requested Visits Authorized [id number] Closed Auto-Generate d Referral 11/05/2022 05/16/2023 1 1 Reason Onset Date Comments Refill Request 11/25/2022 Reason Comments Anesthesia Consult Reason Onset Date Comments Refill Request 02/08/[address] Specialty Diagnoses / Procedures Referred By Contac t Referred To Contact CT IMAGING Diagnoses Gross hematuria Procedures CT UROGRAM WO/W IVCON CT ABD & PELVIS W/O CONTRST 1+ BODY John Billings MD [address] [place] [address] [place] [facility] [place] [facility] Referral ID Status Reason Start Date Expiration Date V isits Requested Visits Authorized [id number] Closed Auto-Generate d Referral 05/22/2022 07/31/2022 1 1 Specialty Diagnoses / Procedures Referred By Contac t Referred To Contact CT IMAGING Diagnoses Interstitial pulmonary disease ([facility]) NSIP (nonspecific interstitial pneumonia) ([facility]) Procedures CT CHEST WO IVCON DIAGNOSTIC COMPUTED TOMOGRAPHY THORAX W/O Rowan Werner MD [address] [place] [address] [place] [address] Referral ID Status Reason Start Date Expiration Date V isits Requested Visits Authorized [id number] Closed Auto-Generate d Referral 10/13/2022 12/12/2022 1 1 Specialty Diagnoses / Procedures Referred By Contac t Referred To Contact CT IMAGING Diagnoses Lung nodules Procedures CT CHEST WO IVCON DIAGNOSTIC COMPUTED TOMOGRAPHY THORAX W/O Rowan Werner MD [address] [place] [address] Ct Imaging [facility] Referral ID Status Reason Start Date Expiration Date V isits Requested Visits Authorized [id number] Closed Auto-Generate d Referral 2022 05/25/2022 1 1 Reason Comments Medicare Wellness Exam Reason Onset Date Comments Refill Request 08/09/2023 Reason Comments Orders Mammogram Reason Onset Date Comments Refill Request 09/01/2023 Reason Comments Acute Visit Tremors in hands and mouth Reason Comments Care Coordination Botox Reason Comments Insurance Authorization Prior Auth Delay ed Additional Information Needed Requested Reason Comments Radiology CT Specialty Diagnoses / Procedures Referred By Contac t Referred To Contact CT IMAGING Diagnoses Interstitial pulmonary disease (HCC) Procedures CT CHEST WO IVCON DIAGNOSTIC COMPUTED TOMOGRAPHY THORAX W/O FIDET Rowan Temple MD [address] [place] [address] [place] [address] Referral ID Status Reason Start Date Expiration Date V isits Requested Visits Authorized [id number] Closed Auto-Generate d Referral 11/01/2023 10/15/2024 1 1 Reason Comments Kidney Stones Reason Comments Insurance Authorization Prior Auth Denie d: Appeal Requested Reason Comments Route Rider - Other Reason Onset Date Comments Appointment 11/22/2023 Reason Comments Well Woman Specialty Diagnoses / Procedures Referred By Contac t Referred To Contact UROL DENTAL MOLD MAKER Diagnoses OAB (overactive bladder) Procedures BOTULINUM TOXIN A PER 1 UNIT CYSTOURETHROSCOPY INJ CHEMODENERVATION BLADDER Wiley Benitez MD [address] [facility] [address] [place] [address] Distribution Sales Manager [facility] [address] [facility] [address] [place] [address] Reason Comments Post-Op Visit Kidney stone Reason Comments New Patient Evaluation Specialty Diagnoses / Procedures Referred By Contac t Referred To Contact Neurology Diagnoses Tremor Procedures CONSULT TO NEUROLOGY OFFICE/OUTPATIENT NEW HIGH MDM 60 MINUTES Jacqueline Carpenter APRN.[employer]Y [employer] DRIVER [address] [place] [address] Referral ID Status Reason Start Date Expiration Date V isits Requested Visits Authorized [id number] Closed PCP Requested Referral 10/14/2023 10/13/2024 1 1 Reason Comments Refill Request Reason Comments Results Labs Reason Comments Acute Visit Fall and wants to di scuss meds INFORMATION SOURCE (unrecogn ized section and content) DATE CREATED AUTHOR 02/01/2023 [facility] DATE CREATED AUTHOR AUTHOR'S ORGANIZ ATION 12/01/2023 [facility] DATE CREATED AUTHOR AUTHOR'S ORGANIZ ATION 03/03/2024 [facility] FOR RECORDS PERTAINING TO PATIENTS WHO ARE OR HAVE BEEN ENROLLED IN A CHEMICAL DEPENDENCY/SUBSTANCEABUSE PROGRAM, SOME INFORMATION MAY BE OMITTED. This clinical summary was aggregated from multiple sources. Caution should be exercised in using it in the provision of clinical care. This summary normalizes information from multiple sources, and as a consequence, information in this document may materially change the coding, format and clinical context of patient data. In addition, data may be omitted in some cases. CLINICAL DECISIONS SHOULD BE BASED ON THE PRIMARY CLINICAL RECORDS. [employer] [facility]. provides no warranty or guarantee of the accuracy or completeness of information in this document.
[2024-03-03 15:38] LABS: Differential Indicated SCAN CRITERIA MET
--- NOTE | 2024-03-03 15:51 | CT_ITS ---
INDICATION: Kidney Stone EXAMINATION: CT ABDOMEN AND PELVIS WITHOUT CONTRAST - CT Abdomen And Pelvis W/O Contrast Injection TECHNIQUE: Helically acquired images were obtained of the abdomen and pelvis without oral or IV contrast. The protocol utilizes one or more of the following dose reduction techniques: automated exposure control, adjustment of mA and/or kV according to patient size,and/or use of iterative reconstruction technique. IV Contrast dosage and agent: None. Oral contrast: None. RADIATION DOSAGE (If Supplied By Facility): CTDIvol = ( 10.83 ) mGy, DLP = ( 522.87 ) mGycm COMPARISON: June 08, 2018 CT of the chest dated March 03, 2024 FINDINGS: LOWER CHEST: There is a separate dedicated CT report of the chest LIVER: Homogeneous. No focal mass. GALLBLADDER AND BILIARY TREE: There is nonvisualization of the gallbladder. No intra- or extrahepatic biliary ductal dilation. PANCREAS: No focal cystic or solid mass. SPLEEN: Normal size without focal cystic or solid mass. ADRENAL GLANDS: No nodules. KIDNEYS AND URETERS: Normal renal size and position. There is contrast within the collecting system bilaterally secondary to recent CTA of the chest. There is bilateral hydroureteronephrosis. There is a low-attenuation 8 x 3 mm intraluminal filling defect within the proximal right ureter (image 58 series 601). There is circumferential wall thickening of the right proximal and left ureter. There is a left renal cyst. PERITONEUM: No ascites or free air. No other fluid collection. BOWEL: There is a small hiatal hernia. No evidence of acute appendicitis. No stomach or bowel distension. There are diverticula arising from the sigmoid colon. There are anastomotic sutures within the sigmoid colon No focal inflammatory change. LYMPH NODES: There are prominent retroperitoneal lymph nodes. VESSELS: Aorta is non-dilated. URINARY BLADDER: There is bladder wall thickening associated with adjacent stranding. REPRODUCTIVE ORGANS: No pelvic masses. ABDOMINAL WALL: No discrete abdominal or pelvic wall hernia. There is a stimulator device in place within the left lower back with an electrode traversing the sacrum left of midline. BONES: There are degenerative changes of the visualized thoracic and lumbar spine. CT/Abdomen/Pelvis without Cont IMPRESSION: Bilateral hydroureteronephrosis associated with a filling defect within the right proximal ureter may reflect a neoplastic process and bilateral ureteral wall thickening suggestive of ureteritis. Bladder wall thickening with adjacent stranding consistent with cystitis. Colonic diverticulosis. Small hiatal hernia. Electronically Signed: Marlee Mckeon MD at 16:30 EDT ,
[2024-03-03] MEDS: 0.9% Normal Saline (500mL Bag) 500 ML 999 ML IV (15:55)
[2024-03-03] MEDS: Ceftriaxone 2 GM in 0.9% Normal Saline (50mL MB+) 50 ML IV (16:03)
[2024-03-03 16:11] LABS: BNP,B-Type NATRIURETIC PEPTIDE 42.4 pg/mL (0-100)
[2024-03-03 16:43] LABS: Reflex Troponin-HS? (from REC) Y
[2024-03-03 17:53] LABS: Troponin-I HS 15 pg/mL (3.0-54.0)
[2024-03-04] VITALS (10 sets, daily range): BP systolic 103–138; BP diastolic 73–92; PULSE 67–123; RESP 16–20; TEMP 35.8; O2SAT 91–99
[2024-03-04] MEDS: Acetaminophen 325 MG Tablet 650 MG PO (03:23)
--- NOTE | 2024-03-04 06:30 | ED.RN ---
Per DR. Cruz, okay to get vitals q2hrs on pt due to tachycardia
[2024-03-04 08:47] LABS: Hematocrit 37.6 % (37-47); Hemoglobin 11.6 g/dL (12.0-15.0); Mean Corp Hgb Conc 30.9 g/dL (32-36); Mean Corpuscular Hgb 25.4 pg (27.0-32.0); Mean Corpuscular Volume 82.3 fL (81-99); Mean Platelet Vol. 10.3 fl (6.2-12.0); Platelet Count 324 K/mm3 (150-450); RBC Distribution Width CV 15.4 % (11.6-14.6); Red Blood Count 4.57 M/mm3 (4.2-5.4); White Blood Count 16.9 K/mm3 (4.4-11.0)
[2024-03-04 08:55] LABS: Anion Gap 10 (5-15); BUN 61 mg/dL (7-18); BUN/Creat Ratio 23.5 RATIO (10-20); Calcium,Total 10.3 mg/dL (8.5-10.1); Chloride 105 mmol/L (98-107); EST Glomerular Filtration Rate 20 mL/min (>60); Est Glom Filt Rate - Afr Amer 24 mL/min (>60); Estimated Creatinine Clearance 22.76 ml/min; Glucose 104 mg/dL (74-106); Potassium 3.8 mmol/L (3.5-5.1); Sodium Level 134 mmol/L (136-145)
[2024-03-04] MEDS: Ondansetron 4 MG/2 ML Vial IV (11:25)
[2024-03-06 11:01] LABS: Pathologist Review Reviewed
== END 2024-03-04 12:59 | disposition short-term general hospital (02) ==
LOC: ED 15:17
PROVIDERS: Emergency Provider Surgery; PCP Family Medicine; Visit Provider Surgery
DX: N13.6 Pyonephrosis (principal); R56.9 Unspecified convulsions; N17.9 Acute kidney failure, unspecified; R55 Syncope and collapse; E03.9 Hypothyroidism, unspecified; D75.839 Thrombocytosis, unspecified; G21.19 Other drug induced secondary parkinsonism; T45.0X5A Adverse effect of antiallergic and antiemetic drugs, initial encounter; Z79.82 Long term (current) use of aspirin; Z79.890 Hormone replacement therapy; Z79.899 Other long term (current) drug therapy
CPT/HCPCS: 70450; 71045; 71275; 72125; 74176; 80048; 81001; 83735; 83880; 84443; 84484; 85025; 85027; 85379; 87077; 87086; 87088; 87186; 93005; 96361; 96365; 96375; 99285; J7040; Q9967; A4216; J0696; J2405

== ENCOUNTER 2024-06-06 14:09 | Day surgery (SDC) | payer MEDICARE, SELFPAY ==
--- NOTE | 2024-06-02 16:00 | PAT.ANESEVAL ---
Pre-Assessment Diagnosis/Proposed Procedure Planned Operative Procedure(s): EGD Anesthesia History Anesthesia History - computer mechanic: Anesthesia History - computer mechanic Hx Hospitalization Yes: 03/09 HYPOTENSION/ 06/02/24 12:12 DIZZINESS/YEAST INFECTON OF ESPHOGUS Any Problems With Anesthesia No 06/02/24 12:12 Cholinesterase deficiency No 06/02/24 12:12 You/Your Family Experience No 06/02/24 12:12 fever (hyperthermia) with Relationship Recent Exposure to Contagious No 12/23/17 06:17 Disease Does patient have nerve No 06/02/24 12:12 stimulator Patient instructed to have device shut off --Does patient have Pacemaker or ICD? When Was Last Pacemaker Check QUESTION #4 FULL TEXT: You/Your Family Experience fever (hyperthermia) with Anesthesia Last Oral Intake Last Oral intake: Last Oral Intake NPO since Meds taken in AM with sips of water? Meds patient instructed to take am of surgery PONV PONV - computer mechanic: PONV - computer mechanic Female Yes 06/02/24 12:12 HX of Motion Sickness Yes 06/02/24 12:12 HX of N/V After Surgery No 06/02/24 12:12 Non-Smoker Yes 06/02/24 12:12 Duration of Surgery greater No 06/02/24 12:12 than 60 minutes Number of Risk Factors 3 06/02/24 12:12 PONV Score Moderate Risk 06/02/24 12:12 Height & Weight Height & Weight: Anesthesia: Height & Weight Height 5 ft 5 in 03/03/24 13:57 Respiratory Assessment Respiratory Assessment - computer mechanic: Respiratory Tract Infection Hx - computer mechanic Hx Respiratory Tract Infection No 06/02/24 12:12 STOP Sleep Apnea STOP Sleep Apnea - computer mechanic: STOP Sleep Apnea - computer mechanic Hx Hypertension Yes: CONTROLLED WITH MED 06/02/24 12:12 Hx Sleep Apnea No 06/02/24 12:12 CPAP BIPAP Do you snore loudly (louder No 06/02/24 12:12 than talking or can be heard Do you often feel tired/ No 06/02/24 12:12 fatigued/ sleepy during daytime? Has anyone observed you stop No 06/02/24 12:12 breathing during sleep? STOP Results Negative 06/02/24 12:12 QUESTION #5 FULL TEXT : Do you snore loudly (louder than talking or can be heard through closed doors)? 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 Specify any problems Hx of Preganancy in last 3 No 06/02/24 12:12 Months Nurse Filling Out Transfusion DSCHRIBER 06/02/24 12:12 & Questions: Date: 06/02/24 06/02/24 12:12 Time: 12:15 06/02/24 12:12 Patient unable to answer at this time (ie. confused, unrespo /Reproduction History /Reproductive History - computer mechanic: /Reproductive Hx- computer mechanic Hx Now No 06/02/24 12:12 Gestational Age (in weeks): EDC: Hx Hx Para Hx Section SAB No 06/02/24 12:12 [facility] Medical History (Updated 06/02/24 @ 12:24 by Lisette Hilton) History of steroid therapy Wears glasses Post-menopausal Cancer Arthritis History of renal disease DVT (deep venous thrombosis) Easy bruising Syncope Dietary restriction History of diverticulitis Interstitial emphysema of lung Non-smoker History of edema Overactive bladder Intramural leiomyoma of uterus Esophageal dysmotility Abnormal Pap smear of vagina and vaginal HPV Positive P-ANCA titer Hypothyroid Home Medications ?Medication ?Instructions ?Recorded ?Last Taken ?Type aspirin 81 mg chewable tablet 81 mg PO DAILY@0800 06/28/18 Unknown History cholecalciferol (vitamin D3) 25 1,000 unit PO BID 06/28/18 Unknown History mcg (1,000 unit) tablet (Vitamin D3) geriatric [id number] 1 ea PO DAILY 06/28/18 Unknown History (Complete Senior tablet) mycophenolate mofetil 500 mg 1,000 mg PO DAILY 03/04/24 Unknown History tablet (CellCept) estradiol 0.01% (0.1 mg/gram) 1 g vaginal 2XW 04/06/24 Unknown History vaginal cream (Estrace) levothyroxine 100 mcg capsule 100 mcg PO QDAY 04/06/24 Unknown History ondansetron 4 mg disintegrating 4 mg PO Q8H PRN nausea and vomiting 04/06/24 Unknown History tablet Lactobacillus acidophilus 250 500 mmu cells PO DAILY 06/02/24 Unknown History million cell capsule (Probiotic Acidophilus) PREVAGEN 1 cap PO DAILY 06/02/24 Unknown History amitriptyline 50 mg tablet 75 mg PO QHS 06/02/24 Unknown History biotin 5,000 mcg sublingual tablet 5,000 mcg sublingual DAILY 06/02/24 Unknown History fludrocortisone 0.1 mg tablet 0.1 mg PO DAILY 06/02/24 Unknown History mycophenolate mofetil 500 mg tablet 500 mg PO QHS 06/02/24 Unknown History Allergy/AdvReac Type Severity Reaction Status Date / Time cetirizine (From [facility]) Allergy Intermediate Rash Verified 06/02/24 12:07 erythromycin base AdvReac Intermediate Diarrhea Verified 06/02/24 12:07 azithromycin AdvReac Mild Diarrhea Verified 06/02/24 12:07 Family History Mother Thyroid disorder Hypertension Father Heart disease Hypertension COPD (chronic obstructive pulmonary disease) Surgical History (Updated 06/02/24 @ 12:24 by Lisette Hilton) Hx of colonoscopy History of esophagogastroduodenoscopy (EGD) Hx of tubal ligation Hx of bladder repair surgery H/O thymectomy History of spinal fusion History of cholecystectomy History of colon resection Social History Smoking Status: Never smoker alcohol intake: current alcohol intake frequency: holidays/special occasions only Audit: Pertinent Findings Pertinent Findings EKG Perinent findings: March 06, 2024. Sinus tachycardia [address] and T wave abnormality. This is unchanged from her EKG in June 04, 2018. Recommendation Anesthesia Recommendation Anesthesia recommendation: OPTIMIZED for anesthesia
[2024-06-06] VITALS (9 sets, daily range): BP systolic 107–128; BP diastolic 67–81; PULSE 91–94; RESP 16–17; TEMP 36.2–36.8; O2SAT 95–100; BMI 29.5
--- NOTE | 2024-06-06 | ESO_PTH ---
PATIENT: EREN HAWLEY LOC: EN U#:[id number] AGE/SX: 64/F ROOM: RE06/06/[address]: Dr. Aditya Cota DO : 1960 BED: DIS: 06/06/2024 SPEC #: [id number] RECD: 06/07/24 09:12 STATUS: ALMA NKECHI #: [id number] ANASTASIYA: 06/06/24 00:[address]: Aditya Cota DEPT: SURGICAL PATHOLOGY RECD BY: Dean Marshall ENTERED: 06/07/24 09:12 SP TYPE: BRAN BAUM DR: Dr. Yasir Smith MD Tissues: Esophagus, NOS Procedures: Surgery Specimen Level IV HEADER OPERATION: EGD with biopsy PRE-OP DIAGNOSIS: Candidiasis of esophagus TISSUE SUBMITTED: Random esophagus biopsy MICROSCOPIC DIAGNOSIS Esophagus, random biopsy: Fragments of benign squamous epithelium. 06/08/2024 MICROSCOPIC DESCRIPTION Slides are reviewed. GROSS DESCRIPTION Received in fixative is one container labeled with the patient's name and designated Random esophagus biopsy. The specimen consists of multiple irregular fragments of light lester soft tissue that in aggregate measure 1.2 x 0.2 x 0.1 cm. The specimen is totally submitted in one cassette. MS/mr 06/07/2024 TC:5 CPT:91188
--- NOTE | 2024-06-06 14:57 | PRE.ANES_ITS ---
ASA Classification* ASA Classification ASA Classification: 3 Assessment & Plan Anesthesia* Anesthesia Assessment Anesthesia Assessment: Discussed sedation and/or anesthesia options, risks, benefits, and alternatives with patient/parents/legal guardian/POA. Questions invited. The patient/parents/legal guardian/POA seems to understand and agrees to proceed with anesthesia plan. Reviewed the physical assessment, medical history, allergy history and patient home medications list prior to surgery/procedure/anesthetic and documented any changes. Performed airway and anesthesia risk assessments. Anesthesia Type Anesthesia Type: MAC History Source History Obtained from:: Patient and Chart Anesthesia Focused Assessment* Temperature: 98.3 F Pulse Rate: 91 Blood Pressure: 127/67 Respiratory Rate: 17 Pulse Ox: 100 Oxygen Delivery Method: Room Air Airway Assessment Mouth opens: >3 cm Mallampati Score: III Teeth Condition: Chipped/Broken (Patient has a couple broken teeth upper jaw) Neck Range of motion (ROM): Full ROM Focused Labs Anesthesia Preop lab: CBC WBC 16.9 K/mm3 (4.4-11.0) H 03/04/24 08:20 RBC 4.57 M/mm3 (4.2-5.4) 03/04/24 08:20 Hgb 11.6 g/dL (12.0-15.0) L 03/04/24 08:20 Hct 37.6 % (37-47) 03/04/24 08:20 Plt Count 324 K/mm3 (150-450) 03/04/24 08:20 CHEMISTRY Potassium 3.8 mmol/L (3.5-5.1) 03/04/24 08:20 Sodium 134 mmol/L (136-145) L 03/04/24 08:20 Magnesium 2.4 mg/dL (1.6-2.6) 03/03/24 14:20 Phosphorus 2.7 mg/dL (2.5-4.9) 12/26/17 05:40 BUN 61 mg/dL (7-18) H 03/04/24 08:20 Creatinine 2.60 mg/dL (0.55-1.02) H 03/04/24 08:20 Glucose 104 mg/dL (74-106) 03/04/24 08:20 TSH 2.500 uIU/mL (0.358-3.740) 03/03/24 14:20 COAG Pre-Assessment Diagnosis/Proposed Procedure Planned Operative Procedure(s): EGD Anesthesia History Anesthesia History - glaucoma specialist: Anesthesia History - glaucoma specialist Hx Hospitalization Yes: 03/09 HYPOTENSION/ 06/02/24 12:12 DIZZINESS/YEAST INFECTON OF ESPHOGUS Any Problems With Anesthesia No 06/02/24 12:12 Cholinesterase deficiency No 06/02/24 12:12 You/Your Family Experience No 06/02/24 12:12 fever (hyperthermia) with Relationship Recent Exposure to Contagious No 06/06/24 14:36 Disease Does patient have nerve No 06/02/24 12:12 stimulator Patient instructed to have device shut off --Does patient have Pacemaker No 06/06/24 14:36 or ICD? When Was Last Pacemaker Check QUESTION #4 FULL TEXT: You/Your Family Experience fever (hyperthermia) with Anesthesia Last Oral Intake Last Oral intake: Last Oral Intake NPO since 08:00 06/06/24 14:36 Meds taken in AM with sips of Yes 06/06/24 14:36 water? Meds patient instructed to see home med list 06/06/24 14:36 take am of surgery Any additional information?: Yes NPO since: 10:00 (Patient had black coffee and water before 10 AM) Meds taken in AM with sips of water?: Yes PONV PONV - glaucoma specialist: PONV - glaucoma specialist Female Yes 06/02/24 12:12 HX of Motion Sickness Yes 06/02/24 12:12 HX of N/V After Surgery No 06/02/24 12:12 Non-Smoker Yes 06/02/24 12:12 Duration of Surgery greater No 06/02/24 12:12 than 60 minutes Number of Risk Factors 3 06/02/24 12:12 PONV Score Moderate Risk 06/02/24 12:12 Height & Weight Height & Weight: Anesthesia: Height & Weight Height 5 ft 5 in 06/06/24 14:36 Weight: 80.5 kg 06/06/24 14:36 Body Mass Index (BMI) 29.5 06/06/24 14:36 Respiratory Assessment Respiratory Assessment - glaucoma specialist: Respiratory Tract Infection Hx - glaucoma specialist Hx Respiratory Tract Infection No 06/02/24 12:12 Any additional information?: Yes Hx Respiratory Tract Infection: No (Lungs are clear to auscultation) STOP Sleep Apnea STOP Sleep Apnea - glaucoma specialist: STOP Sleep Apnea - glaucoma specialist Hx Hypertension Yes: CONTROLLED WITH MED 06/02/24 12:12 Hx Sleep Apnea No 06/02/24 12:12 CPAP BIPAP Do you snore loudly (louder No 06/02/24 12:12 than talking or can be heard Do you often feel tired/ No 06/02/24 12:12 fatigued/ sleepy during daytime? Has anyone observed you stop No 06/02/24 12:12 breathing during sleep? STOP Results Negative 06/02/24 12:12 QUESTION #5 FULL TEXT : Do you snore loudly (louder than talking or can be heard through closed doors)? Tobacco Use History Tobacco Use History - glaucoma specialist: Tobacco Use History - glaucoma specialist Tobacco Use Smoking Status Never smoker 06/02/24 12:12 Hx Tobacco Use No 06/02/24 12:12 Years Smoking Packs Smoked per Day Smoking Cessation Date was within the last 15 years Hx Smoking Cessation Date Hx Smoking Cessation Counseling Hematologic Medial History Hematologic Hx - glaucoma specialist: Hematologic Medical Hx - rn clinical documentation Hx of Blood Transfusion No 06/02/24 12:12 Hx of Transfusion in last 3 No 06/02/24 12:12 Months Date of Last Transfusion (if within last 3 months) Ever experience any problems No 06/02/24 12:12 with transfusion(s)? Specify any problems Hx of Preganancy in last 3 No 06/02/24 12:12 Months Nurse Filling Out Transfusion DSCHRIBER 06/02/24 12:12 & Questions: Date: 06/02/24 06/02/24 12:12 Time: 12:15 06/02/24 12:12 Patient unable to answer at this time (ie. confused, unrespo /Reproduction History /Reproductive History - glaucoma specialist: /Reproductive Hx- glaucoma specialist Hx Now No 06/02/24 12:12 Gestational Age (in weeks): EDC: Hx Hx Para Hx Section SAB No 06/02/24 12:12 PFSH Medical History History of steroid therapy Wears glasses Post-menopausal Cancer Arthritis History of renal disease DVT (deep venous thrombosis) Easy bruising Syncope Dietary restriction History of diverticulitis Interstitial emphysema of lung Non-smoker History of edema Overactive bladder Intramural leiomyoma of uterus Esophageal dysmotility Abnormal Pap smear of vagina and vaginal HPV Positive P-ANCA titer Hypothyroid Home Medications ?Medication ?Instructions ?Recorded ?Last Taken ?Type aspirin 81 mg chewable tablet 81 mg PO DAILY@0800 06/28/18 06/02/24 History cholecalciferol (vitamin D3) 25 1,000 unit PO BID 06/28/18 06/05/24 History mcg (1,000 unit) tablet (Vitamin D3) geriatric [id number] 1 ea PO DAILY 06/28/18 06/05/24 History (Complete Senior tablet) mycophenolate mofetil 500 mg 1,000 mg PO DAILY 03/04/24 06/06/24 History tablet (CellCept) estradiol 0.01% (0.1 mg/gram) 1 g vaginal 2XW 04/06/24 Unknown History vaginal cream (Estrace) levothyroxine 100 mcg capsule 100 mcg PO QDAY 04/06/24 06/06/24 History ondansetron 4 mg disintegrating 4 mg PO Q8H PRN nausea and vomiting 04/06/24 Unknown History tablet Lactobacillus acidophilus 250 500 mmu cells PO DAILY 06/02/24 06/05/24 History million cell capsule (Probiotic Acidophilus) PREVAGEN 1 cap PO DAILY 06/02/24 06/05/24 History amitriptyline 50 mg tablet 75 mg PO QHS 06/02/24 06/05/24 History biotin 5,000 mcg sublingual tablet 5,000 mcg sublingual DAILY 06/02/24 06/05/24 History fludrocortisone 0.1 mg tablet 0.1 mg PO DAILY 06/02/24 06/06/24 History mycophenolate mofetil 500 mg tablet 500 mg PO QHS 06/02/24 06/05/24 History Allergy/AdvReac Type Severity Reaction Status Date / Time cetirizine ([facility]) Allergy Intermediate Rash Verified 06/06/24 14:34 erythromycin base AdvReac Intermediate Diarrhea Verified 06/06/24 14:34 azithromycin AdvReac Mild Diarrhea Verified 06/06/24 14:34 Family History Mother Thyroid disorder Hypertension Father Heart disease Hypertension COPD (chronic obstructive pulmonary disease) Surgical History Hx of colonoscopy History of esophagogastroduodenoscopy (EGD) Hx of tubal ligation Hx of bladder repair surgery H/O thymectomy History of spinal fusion History of cholecystectomy History of colon resection Social History Smoking Status: Never smoker alcohol intake: current alcohol intake frequency: holidays/special occasions only Review of Systems (Anesthesia) ROS Narrative System reviewed and no additional complaints, except as documented.
--- NOTE | 2024-06-06 15:15 | PCM.HP.STD ---
HPI - General General Date of Admission: 06/06/24 Date of Service: 06/06/24 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: Nga esophagitis HPI Narrative EREN HAWLEY, is a 64 F who presents 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: nga esophagititis Details: EREN HAWLEY, is a 64 F who presents to the office today for establishment. She has a PMHx of CKD, hypothyroidism, overactive bladder, thymoma present w/ bilateral hydronephrosis, diverticulitis s/p two bowel resections. Pt was hospitalized 03.04.24 for seizure like activity at the [facility]. 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 She is on CellCept and prednisone for intersisital lung disease. During her stay she was found to have esophageal thickening on imaging. She underwent EGD and was found to have severe esophageal candidiasis. She was started on Diflucan and nystatin. She has a hx of esophageal candidiasis and dysphagia prior to this as well. Pt was feeling better on the anti fungal medications but once they stopped her symptoms slowly started coming back. She is having burning, globus sensation and occasional coughing. She feels like she may have the infection again. EGD 03.07.24; severe candidiasis w/ no bleeding, LA Grade D acute and erosive esophagitis with no bleeding, gastritis and normal duodenum. with recommendation for f/u in 8 weeks. 0 fluconazole 200 mg PO QDAY 14 tabs 2RF 2 weeks PFSH Medical History History of steroid therapy Wears glasses Post-menopausal Cancer Arthritis History of renal disease DVT (deep venous thrombosis) Easy bruising Syncope Dietary restriction History of diverticulitis Interstitial emphysema of lung Non-smoker History of edema Overactive bladder Intramural leiomyoma of uterus Esophageal dysmotility Abnormal Pap smear of vagina and vaginal HPV Positive P-ANCA titer Hypothyroid Home Medications ?Medication ?Instructions ?Recorded ?Last Taken ?Type aspirin 81 mg chewable tablet 81 mg PO DAILY@0800 06/28/18 06/02/24 History cholecalciferol (vitamin D3) 25 1,000 unit PO BID 06/28/18 06/05/24 History mcg (1,000 unit) tablet (Vitamin D3) geriatric [id number] 1 ea PO DAILY 06/28/18 06/05/24 History (Complete Senior tablet) mycophenolate mofetil 500 mg 1,000 mg PO DAILY 03/04/24 06/06/24 History tablet (CellCept) estradiol 0.01% (0.1 mg/gram) 1 g vaginal 2XW 04/06/24 Unknown History vaginal cream (Estrace) levothyroxine 100 mcg capsule 100 mcg PO QDAY 04/06/24 06/06/24 History ondansetron 4 mg disintegrating 4 mg PO Q8H PRN nausea and vomiting 04/06/24 Unknown History tablet Lactobacillus acidophilus 250 500 mmu cells PO DAILY 06/02/24 06/05/24 History million cell capsule (Probiotic Acidophilus) PREVAGEN 1 cap PO DAILY 06/02/24 06/05/24 History amitriptyline 50 mg tablet 75 mg PO QHS 06/02/24 06/05/24 History biotin 5,000 mcg sublingual tablet 5,000 mcg sublingual DAILY 06/02/24 06/05/24 History fludrocortisone 0.1 mg tablet 0.1 mg PO DAILY 06/02/24 06/06/24 History mycophenolate mofetil 500 mg tablet 500 mg PO QHS 06/02/24 06/05/24 History Allergy/AdvReac Type Severity Reaction Status Date / Time cetirizine (From [facility]) Allergy Intermediate Rash Verified 06/06/24 14:34 erythromycin base AdvReac Intermediate Diarrhea Verified 06/06/24 14:34 azithromycin AdvReac Mild Diarrhea Verified 06/06/24 14:34 Family History Mother Thyroid disorder Hypertension Father Heart disease Hypertension COPD (chronic obstructive pulmonary disease) Surgical History Hx of colonoscopy History of esophagogastroduodenoscopy (EGD) Hx of tubal ligation Hx of bladder repair surgery H/O thymectomy History of spinal fusion History of cholecystectomy History of colon resection Social History Smoking Status: Never smoker alcohol intake: current alcohol intake frequency: holidays/special occasions only ROS Constitutional Constitutional: Denies fatigue, fever(s), poor appetite, weight gain or weight loss Gastrointestinal Gastrointestinal: Denies belching, bloating, change in bowel habits, change in stool character, chewing difficulty, coffee ground emesis, constipation, cramping, diarrhea, dyspepsia, dysphagia, early satiety, excessive flatus, fecal incontinence, heartburn, hematemesis, hematochezia, hemorrhoids, loose stools, melena, nausea, odynophagia, rectal bleeding, tenesmus, vomiting or weight changes Vital Signs Vital Signs Vital Signs: 06/06/24 14:36 06/06/24 14:36 06/06/24 15:14 Temperature 98.3 F 98.3 F Temperature Source Temporal Pulse Rate 91 91 Respiratory Rate 17 17 Respiratory Pattern Normal Blood Pressure 127/67 H 127/67 H Blood Pressure Mean 87 Blood Pressure Source Monitor Blood Pressure Position Semi-Fowlers Blood Pressure Location Left Arm Pulse Ox 100 100 Oxygen Delivery Method Room Air Room Air Weight Weight: 177 lb 7.554 oz Body Mass Index (BMI) 29.5 Physical Exam Const alert, oriented x3, no apparent distress and healthy appearing General Appearance: cooperative GI normal to inspection, nondistended, normoactive bowel sounds, soft to palpation, non-tender and non-distended Percussion: normal to percussion Rectal Exam: deferred Assessment & Plan Assessment/Plan (1) Candidiasis of esophagus: (2) GERD (gastroesophageal reflux disease): PLAN: Assessment and Plan Assessment and Plan (1) Candidiasis of esophagus: Status: Acute Plan: This is a 64 yo female pt here today for establishment. She was hospitalized at [facility] for seizure like activity,CKD, MANJIT, and UTI. She was found to have thickening in her esophagus and underwent EGD showing severe nga esophagitis. She was treated with sucralfate and fluconazole. Her symptoms have come back with burning and globus sensation. She will need to undergo repeat EGD to ensure healing. She was schedule for this today but it is not until may 2024. In the meantime she will be treated with 200 mg fluconazole for 2 weeks. -EGD -Start fluconazole 200 mg daily for 14 days Medications: New fluconazole 200 mg PO QDAY 14 tabs 2RF 2 weeks
--- NOTE | 2024-06-06 15:34 | OP.CCLET_ITS ---
06/06/2024 Yasir Smith [address] [place] [address] Re : Upper GI endoscopy procedure for [employer] Dear Dr. Smith This procedure was performed on Thursday, June 06, 2024. My impressions and recommendations are as follows: Impressions : - Normal esophagus. Biopsied. - Small hiatal hernia. - Normal second portion of the duodenum. Recommendations : - Discharge patient to home. - Resume previous diet. - Continue present medications. - Await pathology results. My findings are described in the full procedure note, which is enclosed. If I can be of further assistance, please feel free to contact me at . Sincerely, Aditya Cota, 06/06/2024 3:33:34 PM This report has been signed electronically.
--- NOTE | 2024-06-06 15:34 | OP.EGD_ITS ---
Patient Name: Asia Merchant Procedure Date: 06/06/2024 3:15 PM Date of : 1960 Age: 64 Procedure: Upper GI endoscopy Indications: Surveillance procedure, Dysphagia Providers: Aditya Cota DO Referring MD: Yasir Smith Medicines: Monitored Anesthesia Care Patient Profile: This is a 64 year old female. Refer to note in patient chart for documentation of history and physical. Patient has symptoms of chronic dysphagia. Complications: No immediate complications. Procedure: Pre-Anesthesia Assessment: - Prior to the procedure, a History and Physical was performed, and patient medications and allergies were reviewed. The patient is competent. The risks and benefits of the procedure and the sedation options and risks were discussed with the patient. All questions were answered and informed consent was obtained. Patient identification and proposed procedure were verified by the physician in the pre-procedure area. Mental Status Examination: alert and oriented. Airway Examination: normal oropharyngeal airway and neck mobility. Respiratory Examination: clear to auscultation. CV Examination: normal. Prophylactic Antibiotics: The patient does not require prophylactic antibiotics. Prior Anticoagulants: The patient has taken no anticoagulant or antiplatelet agents except for NSAID medication. ASA Grade Assessment: II - A patient with mild systemic disease. After reviewing the risks and benefits, the patient was deemed in satisfactory condition to undergo the procedure. The anesthesia plan was to use monitored anesthesia care (MAC). Immediately prior to administration of medications, the patient was re-assessed for adequacy to receive sedatives. The heart rate, respiratory rate, oxygen saturations, blood pressure, adequacy of pulmonary ventilation, and response to care were monitored throughout the procedure. The physical status of the patient was re-assessed after the procedure. After obtaining informed consent, the endoscope was passed under direct vision. Throughout the procedure, the patient's blood pressure, pulse, and oxygen saturations were monitored continuously. The gastroscope was introduced through the mouth, and advanced to the second part of duodenum. The upper GI endoscopy was accomplished without difficulty. The patient tolerated the procedure well. Scope In: 3:29:23 PM Scope Out: 3:30:14 PM Total Procedure Duration Time 0 hours 0 minutes 51 seconds Findings: The examined esophagus was normal. Biopsies were taken with a cold forceps for histology. Verification of patient identification for the specimen was done. Estimated blood loss was minimal. A small hiatal hernia was present. No other significant abnormalities were identified in a careful examination of the stomach. The second portion of the duodenum was normal. Impression: - Normal esophagus. Biopsied. - Small hiatal hernia. - Normal second portion of the duodenum. Recommendation: - Discharge patient to home. - Resume previous diet. - Continue present medications. - Await pathology results. Procedure Code(s): --- Professional --- 53989, Esophagogastroduodenoscopy, flexible, transoral; with biopsy, single or multiple CPT copyright 2021 [employer]. All rights reserved. The codes documented in this report are preliminary and upon anesthesia technician review may be revised to meet current compliance requirements. Aditya Cota DO 06/06/2024 3:33:34 PM This report has been signed electronically. Number of Addenda: 0 Note Initiated On: 06/06/2024 3:15 PM
--- NOTE | 2024-06-06 15:36 | PCM.POST.ANE ---
Anesthesia: Postop Eval I Current Vital Signs Temperature: 97.7 F Pulse Rate: 93 Blood Pressure: 118/79 Respiratory Rate: 16 Pulse Ox: 100 Oxygen Delivery Method: Room Air Assessment Airway patent: Yes Spontaneous unlabored respirations: Yes Mental status: Calm nausea: No Vomiting: No Anesthesia Complication: No Fluid Hydration Crystalloid volume administer (ml): 10 Total IV fluid infused: 10 Progress Note Anesthesia document: Postop Eval 1 completed: Yes
--- NOTE | 2024-06-06 19:45 | PCM.POSTANE2 ---
Anesthesia Postop Eval I Sum Postop Eval Completion status Anesthesia document: Postop Eval 1 completed: Yes Anesthesia Postop Eval I Summary Anesthesia Postop Eval I Summary: Anesthesia Postop Eval I: Assessment Summary Airway patent Yes 06/06/24 15:37 [email or web address] Spontaneous unlabored Yes 06/06/24 15:37 [email or web address] respirations Mental status Calm 06/06/24 15:37 [email or web address] nausea No 06/06/24 15:37 [email or web address] Vomiting No 06/06/24 15:37 [email or web address] Anesthesia Postop Eval I: Fluid Summary Crystalloid volume administer 10 06/06/24 15:37 [email or web address] (ml) Colloids volume administered ( ml) Blood Product volume administered (ml) Total IV fluid infused 10 06/06/24 15:37 [email or web address] Anesthesia Postop Eval I: Summary Notes Anesthesia Complication No 06/06/24 15:37 [email or web address] Anesthesia Complication Comment: Post-operative progress note Anesthesia: Postop Eval II Evaluation Mental status: Awake and Calm Pain Level: 0 nausea: No Vomiting: No Complications Anesthesia Complication: No
== END 2024-06-06 16:13 | disposition home or self-care (01) ==
LOC: EN 14:10 → AC 14:53
PROVIDERS: PCP Family Medicine; Referring Provider Family Medicine; Visit Provider Internal Medicine Gastroenterology
PROC: 0DJ08ZZ Inspection of Upper Intestinal Tract, Via Natural or Artificial Opening Endoscopic (ICD-10-PCS; CPT 43235; principal; 2024-06-06 15:10)
DX: B37.81 Candidal esophagitis (principal); N18.9 Chronic kidney disease, unspecified; K21.9 Gastro-esophageal reflux disease without esophagitis; K44.9 Diaphragmatic hernia without obstruction or gangrene; Z79.52 Long term (current) use of systemic steroids; E03.9 Hypothyroidism, unspecified; Z79.890 Hormone replacement therapy; Z79.899 Other long term (current) drug therapy; I12.9 Hypertensive chronic kidney disease with stage 1 through stage 4 chronic kidney disease, or unspecified chronic kidney disease
CPT/HCPCS: 43239; 88305; A4216; J2405

== ENCOUNTER 2024-12-22 11:52 | Day surgery (SDC) | payer MEDICARE, SELFPAY ==
--- NOTE | 2024-12-19 16:52 | PAT.ANESEVAL ---
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 12/19/24 12:42 FALLS, KIDNEY STONES, ETC Any Problems With Anesthesia No 12/19/24 12:42 Cholinesterase deficiency No 12/19/24 12:42 You/Your Family Experience No 12/19/24 12:42 fever (hyperthermia) with Relationship Recent Exposure to Contagious No 06/06/24 14:36 Disease Does patient have nerve No 12/19/24 12:42 stimulator Patient instructed to have device shut off --Does patient have Pacemaker or ICD? When Was Last Pacemaker Check QUESTION #4 FULL TEXT: You/Your Family Experience fever (hyperthermia) with Anesthesia Last Oral Intake Last Oral intake: Last Oral Intake NPO since Meds taken in AM with sips of water? Meds patient instructed to take am of surgery PONV PONV - dry cleaning checker: PONV - dry cleaning checker Female Yes 12/19/24 12:42 HX of Motion Sickness No 12/19/24 12:42 HX of N/V After Surgery No 12/19/24 12:42 Non-Smoker Yes 12/19/24 12:42 Duration of Surgery greater No 12/19/24 12:42 than 60 minutes Number of Risk Factors 2 12/19/24 12:42 PONV Score Moderate Risk 12/19/24 12:42 Height & Weight Height & Weight: Anesthesia: Height & Weight Height 5 ft 5 in 06/06/24 14:36 Respiratory Assessment Respiratory Assessment - dry cleaning checker: Respiratory Tract Infection Hx - dry cleaning checker Hx Respiratory Tract Infection No 12/19/24 12:42 STOP Sleep Apnea STOP Sleep Apnea - dry cleaning checker: STOP Sleep Apnea - dry cleaning checker Hx Hypertension No 12/19/24 12:42 Hx Sleep Apnea No 12/19/24 12:42 CPAP BIPAP Do you snore loudly (louder No 12/19/24 12:42 than talking or can be heard Do you often feel tired/ No 12/19/24 12:42 fatigued/ sleepy during daytime? Has anyone observed you stop No 12/19/24 12:42 breathing during sleep? STOP Results Negative 12/19/24 12:42 QUESTION #5 FULL TEXT : Do you snore loudly (louder than talking or can be heard through closed doors)? Tobacco Use History Tobacco Use History - dry cleaning checker: Tobacco Use History - dry cleaning checker Tobacco Use Smoking Status Never smoker 12/19/24 12:42 Hx Tobacco Use No 12/19/24 12:42 Years Smoking Packs Smoked per Day Smoking Cessation Date was within the last 15 years Hx Smoking Cessation Date Hx Smoking Cessation Counseling Hematologic Medial History Hematologic Hx - dry cleaning checker: Hematologic Medical Hx - rn documentation specialist Hx of Blood Transfusion No 12/19/24 12:42 Hx of Transfusion in last 3 No 12/19/24 12:42 Months Date of Last Transfusion (if within last 3 months) Ever experience any problems No 12/19/24 12:42 with transfusion(s)? Specify any problems Hx of Preganancy in last 3 No 12/19/24 12:42 Months Nurse Filling Out Transfusion [email or web address] 12/19/24 12:42 & Questions: Date: 12/19/24 12/19/24 12:42 Time: 12:44 12/19/24 12:42 Patient unable to answer at this time (ie. confused, unrespo /Reproduction History /Reproductive History - dry cleaning checker: /Reproductive Hx- dry cleaning checker Hx Now Gestational Age (in weeks): EDC: Hx Hx Para Hx Section SAB No 06/02/24 12:12 PFSH Medical History Kidney stones Thyroid disease Uses wheelchair Back pain Parkinson's disease Orthostatic hypotension History of steroid therapy Wears glasses Post-menopausal Cancer Arthritis History of renal disease DVT (deep venous thrombosis) Easy bruising Syncope Dietary restriction History of diverticulitis Interstitial emphysema of lung Non-smoker History of edema Overactive bladder Intramural leiomyoma of uterus Esophageal dysmotility Abnormal Pap smear of vagina and vaginal HPV Positive P-ANCA titer Hypothyroid Home Medications ?Medication ?Instructions ?Recorded ?Last Taken ?Type aspirin 81 mg chewable tablet 81 mg PO DAILY@0800 06/28/18 06/02/24 History cholecalciferol (vitamin D3) 25 1,000 unit PO BID 06/28/18 06/05/24 History mcg (1,000 unit) tablet (Vitamin D3) mycophenolate mofetil 500 mg 500 mg PO BID 03/04/24 06/06/24 History tablet (CellCept) levothyroxine 100 mcg capsule 100 mcg PO QDAY 04/06/24 06/06/24 History ondansetron 4 mg disintegrating 4 mg PO Q8H PRN nausea and vomiting 04/06/24 Unknown History tablet Lactobacillus acidophilus 250 500 mmu cells PO DAILY 06/02/24 06/05/24 History million cell capsule (Probiotic Acidophilus) amitriptyline 50 mg tablet 100 mg PO QHS 07/07/24 Unknown History carbidopa 25 mg-levodopa 100 mg 1 tab PO TID 10/11/24 Unknown History tablet (Sinemet) pantoprazole 20 mg tablet,delayed 20 mg PO QDAY #30 tabs 10/11/24 Unknown Rx release carbidopa 25 mg tablet 25 mg PO TID 11/08/24 Unknown History plecanatide 3 mg tablet (Trulance) 3 mg PO QDAY #30 tabs 11/21/24 Unknown Rx fludrocortisone 0.1 mg tablet 0.2 mg PO DAILY 12/19/24 Unknown History multivitamin (Daily Multi-Vitamin 1 tab PO DAILY 12/19/24 Unknown History tablet) Allergy/AdvReac Type Severity Reaction Status Date / Time cetirizine (From [facility]) Allergy Intermediate Rash Verified 12/19/24 12:37 erythromycin base AdvReac Intermediate Diarrhea Verified 12/19/24 12:37 azithromycin AdvReac Mild Diarrhea Verified 12/19/24 12:37 Family History Mother Thyroid disorder Hypertension Father Heart disease Hypertension COPD (chronic obstructive pulmonary disease) Surgical History (Updated 12/19/24 @ 12:53 by Mundo Rodrigues) S/P laparoscopic appendectomy Hx of colonoscopy History of esophagogastroduodenoscopy (EGD) Hx of tubal ligation Hx of bladder repair surgery H/O thymectomy History of spinal fusion History of cholecystectomy History of colon resection Social History Smoking Status: Never smoker alcohol intake: current alcohol intake frequency: holidays/special occasions only Audit: Pertinent Findings Pertinent Findings EKG Perinent findings: EKG 03/03/2024. Sinus tachycardia. Nonspecific ST and T wave abnormality Recommendation Anesthesia Recommendation Anesthesia recommendation: OPTIMIZED for anesthesia
[2024-12-22] VITALS (7 sets, daily range): BP systolic 117–127; BP diastolic 55–91; PULSE 62–84; RESP 16–20; TEMP 36.6–37; O2SAT 100; BMI 26.0
[2024-12-22] MEDS: Lactated Ringers 1,000 ML 15 ML IV (12:20)
--- NOTE | 2024-12-22 12:24 | PCM.HP.STD ---
HPI - General General Date of Admission: 12/22/24 Date of Service: 12/22/24 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: Abdominal pain HPI Narrative EREN HAWLEY, is a 64 F who presents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: abd pain BGI established March 2024 after [facility] hospitalization for seizure like activity. 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 Pt on Cellcept and prednisone for interstitial lung disease. Found to have esophageal thickening on imaging. Underwent EGD showing esophageal candidiasis stated on Diflucan and nystatin. EGD 03.07.24; severe candidiasis w/ no bleeding, LA Grade D acute and erosive esophagitis with no bleeding, gastritis and normal duodenum. with recommendation for f/u in 8 weeks. OV 04.06.25 Pt feeling better on anti fungal medications but since discontinuing it she has had some symptoms. Endorses burning, globus sensation and cough. Start Fluconazole 200 mg daily for 14 days. Scheduled for EGD EGD 06.06.24;- Normal esophagus. Biopsied. - Small hiatal hernia. - Normal second portion of the duodenum. OV 07.07.24 Pt doing well today. Reviewed EGD results Swallowing improved after treatment with fluconazole. Last OV 10.11.25 Pt having burning in her esophagus for a few weeks now. It does not feel like when she had esophageal candidiasis. She does not take a PPI. Over the past few months pt has been having lower abdominal pain and constipation. 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 She started taking Colace 200 mg for three days which did not produce a bm right away. The pain does get better after she has a bm *Start Pantoprazole 20 mg daily, start colace 200 mg daily OV 6.25 Pt continues to have constipation while taking colace. She is having a bm about once a week. Her bm are hard and small balls. She will have to digitally disimpact on some occasions. She has lower abd pain that is relieved after a bm. She feels this is related to her bladder as well. New linaclotide (Linzess) 72 mcg PO QAM 30 caps 1RF PFSH Medical History Kidney stones Thyroid disease Uses wheelchair Back pain Parkinson's disease Orthostatic hypotension History of steroid therapy Wears glasses Post-menopausal Cancer Arthritis History of renal disease DVT (deep venous thrombosis) Easy bruising Syncope Dietary restriction History of diverticulitis Interstitial emphysema of lung Non-smoker History of edema Overactive bladder Intramural leiomyoma of uterus Esophageal dysmotility Abnormal Pap smear of vagina and vaginal HPV Positive P-ANCA titer Hypothyroid Home Medications ?Medication ?Instructions ?Recorded ?Last Taken ?Type aspirin 81 mg chewable tablet 81 mg PO DAILY@0800 06/28/18 12/21/24 History cholecalciferol (vitamin D3) 25 1,000 unit PO BID 06/28/18 12/21/24 History mcg (1,000 unit) tablet (Vitamin D3) mycophenolate mofetil 500 mg 500 mg PO BID 03/04/24 12/21/24 History tablet (CellCept) levothyroxine 100 mcg capsule 100 mcg PO QDAY 04/06/24 12/22/24 History ondansetron 4 mg disintegrating 4 mg PO Q8H PRN nausea and vomiting 04/06/24 Unknown History tablet Lactobacillus acidophilus 250 500 mmu cells PO DAILY 06/02/24 12/21/24 History million cell capsule (Probiotic Acidophilus) amitriptyline 50 mg tablet 100 mg PO QHS 07/07/24 12/21/24 History carbidopa 25 mg-levodopa 100 mg 1 tab PO TID 10/11/24 12/21/24 History tablet (Sinemet) pantoprazole 20 mg tablet,delayed 20 mg PO QDAY #30 tabs 10/11/24 12/21/24 Rx release carbidopa 25 mg tablet 25 mg PO TID 11/08/24 12/21/24 History plecanatide 3 mg tablet (Trulance) 3 mg PO QDAY #30 tabs 11/21/24 12/21/24 Rx fludrocortisone 0.1 mg tablet 0.2 mg PO DAILY 12/19/24 12/21/24 History multivitamin (Daily Multi-Vitamin 1 tab PO DAILY 12/19/24 12/21/24 History tablet) Allergy/AdvReac Type Severity Reaction Status Date / Time cetirizine (From [facility]) Allergy Intermediate Rash Verified 12/22/24 12:18 erythromycin base AdvReac Intermediate Diarrhea Verified 12/22/24 12:18 azithromycin AdvReac Mild Diarrhea Verified 12/22/24 12:18 Family History Mother Thyroid disorder Hypertension Father Heart disease Hypertension COPD (chronic obstructive pulmonary disease) Surgical History S/P laparoscopic appendectomy Hx of colonoscopy History of esophagogastroduodenoscopy (EGD) Hx of tubal ligation Hx of bladder repair surgery H/O thymectomy History of spinal fusion History of cholecystectomy History of colon resection Social History Smoking Status: Never smoker alcohol intake: current alcohol intake frequency: holidays/special occasions only ROS Constitutional Constitutional: Denies fatigue, fever(s), poor appetite, weight gain or weight loss Gastrointestinal Gastrointestinal: Denies belching, bloating, change in bowel habits, change in stool character, chewing difficulty, coffee ground emesis, constipation, cramping, diarrhea, dyspepsia, dysphagia, early satiety, excessive flatus, fecal incontinence, heartburn, hematemesis, hematochezia, hemorrhoids, loose stools, melena, nausea, odynophagia, rectal bleeding, tenesmus, vomiting or weight changes Vital Signs Vital Signs Vital Signs: 12/22/24 12:21 12/22/24 12:21 Temperature 98.6 F Temperature Source Temporal Pulse Rate 62 Respiratory Rate 17 Respiratory Pattern Normal Blood Pressure 117/81 H Blood Pressure Mean 93 Blood Pressure Source Monitor Blood Pressure Position Semi-Fowlers Blood Pressure Location Right Arm Pulse Ox 100 Oxygen Delivery Method Room Air Weight Weight: 156 lb 8.451 oz Body Mass Index (BMI) 26.0 Physical Exam Const alert, oriented x3, no apparent distress and healthy appearing General Appearance: cooperative GI normal to inspection, nondistended, normoactive bowel sounds, soft to palpation, non-tender and non-distended Percussion: normal to percussion Rectal Exam: deferred Assessment & Plan Assessment/Plan (1) Irritable bowel syndrome with constipation: (2) Constipation: (3) Abdominal pain: PLAN: Assessment and Plan Assessment and Plan (1) Constipation: Status: Acute Plan: Eren is a 64 yo female pt here today for f/u regarding her constipation. Pt has been taking colace with no relief. her last colonoscopy was in 2018. She will undergo repeat colonoscopy at this time. I have started her on Linzess 72 mcg daily. -Colonoscopy -Start Linzess 72 mcg daily -f/u after procedure (2) Abdominal pain: Status: Acute Medications:
--- NOTE | 2024-12-22 13:06 | PCM.PRE.AN2 ---
ASA Classification* ASA Classification ASA Classification: 3 Assessment & Plan Anesthesia* Anesthesia Assessment Anesthesia Assessment: Discussed sedation and/or anesthesia options, risks, benefits, and alternatives with patient/parents/legal guardian/POA. Questions invited. The patient/parents/legal guardian/POA seems to understand and agrees to proceed with anesthesia plan. Reviewed the physical assessment, medical history, allergy history and patient home medications list prior to surgery/procedure/anesthetic and documented any changes. Performed airway and anesthesia risk assessments. Anesthesia Type Anesthesia Type: MAC History Source History Obtained from:: Patient and Chart Anesthesia Focused Assessment* Temperature: 98.6 F Pulse Rate: 62 Blood Pressure: 117/81 Respiratory Rate: 17 Pulse Ox: 100 Oxygen Delivery Method: Room Air Airway Assessment Mouth opens: >3 cm Mallampati Score: III Teeth Condition: Caps/Crowns (Patient has several crowns. They are all tight.) Neck Range of motion (ROM): Full ROM Labs Anesthesia Preop lab: CBC WBC 16.9 K/mm3 (4.4-11.0) H 03/04/24 08:20 03/04/24 RBC 4.57 M/mm3 (4.2-5.4) 03/04/24 08:20 03/04/24 Hgb 11.6 g/dL (12.0-15.0) L 03/04/24 08:20 03/04/24 Hct 37.6 % (37-47) 03/04/24 08:20 03/04/24 Plt Count 324 K/mm3 (150-450) 03/04/24 08:20 03/04/24 CHEMISTRY Potassium 3.8 mmol/L (3.5-5.1) 03/04/24 08:20 03/04/24 Sodium 134 mmol/L (136-145) L 03/04/24 08:20 03/04/24 Magnesium 2.4 mg/dL (1.6-2.6) 03/03/24 14:20 03/03/24 Phosphorus 2.7 mg/dL (2.5-4.9) 12/26/17 05:40 12/26/17 BUN 61 mg/dL (7-18) H 03/04/24 08:20 03/04/24 Creatinine 2.60 mg/dL (0.55-1.02) H 03/04/24 08:20 03/04/24 Glucose 104 mg/dL (74-106) 03/04/24 08:20 03/04/24 TSH 2.500 uIU/mL (0.358-3.740) 03/03/24 14:20 03/03/24 COAG Pre-Assessment Diagnosis/Proposed Procedure Planned Operative Procedure(s): COLONOSCOPY Anesthesia History 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 12/19/24 12:42 FALLS, KIDNEY STONES, ETC Any Problems With Anesthesia No 12/19/24 12:42 Cholinesterase deficiency No 12/19/24 12:42 You/Your Family Experience No 12/19/24 12:42 fever (hyperthermia) with Relationship Recent Exposure to Contagious No 12/22/24 12:21 Disease Does patient have nerve No 12/19/24 12:42 stimulator Patient instructed to have device shut off --Does patient have Pacemaker No 12/22/24 12:21 or ICD? When Was Last Pacemaker Check QUESTION #4 FULL TEXT: You/Your Family Experience fever (hyperthermia) with Anesthesia Last Oral Intake Last Oral intake: Last Oral Intake NPO since 09:00 12/22/24 12:21 Meds taken in AM with sips of Yes 12/22/24 12:21 water? 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 Female Yes 12/19/24 12:42 HX of Motion Sickness No 12/19/24 12:42 HX of N/V After Surgery No 12/19/24 12:42 Non-Smoker Yes 12/19/24 12:42 Duration of Surgery greater No 12/19/24 12:42 than 60 minutes Number of Risk Factors 2 12/19/24 12:42 PONV Score Moderate Risk 12/19/24 12:42 Height & Weight Height & Weight: Anesthesia: Height & Weight Height 5 ft 5 in 12/22/24 12:21 Weight: 71 kg 12/22/24 12:21 Body Mass Index (BMI) 26.0 12/22/24 12:21 Respiratory Assessment Respiratory Assessment - specialty plant supervisor: Respiratory Tract Infection Hx - specialty plant supervisor Hx Respiratory Tract Infection No 12/19/24 12:42 STOP Sleep Apnea STOP Sleep Apnea - specialty plant supervisor: STOP Sleep Apnea - specialty plant supervisor Hx Hypertension No 12/19/24 12:42 Hx Sleep Apnea No 12/19/24 12:42 CPAP BIPAP Do you snore loudly (louder No 12/19/24 12:42 than talking or can be heard Do you often feel tired/ No 12/19/24 12:42 fatigued/ sleepy during daytime? Has anyone observed you stop No 12/19/24 12:42 breathing during sleep? STOP Results Negative 12/19/24 12:42 QUESTION #5 FULL TEXT : Do you snore loudly (louder than talking or can be heard through closed doors)? Tobacco Use History Tobacco Use History - specialty plant supervisor: Tobacco Use History - specialty plant supervisor Tobacco Use Smoking Status Never smoker 12/19/24 12:42 Hx Tobacco Use No 12/19/24 12:42 Years Smoking Packs Smoked per Day Smoking Cessation Date was within the last 15 years Hx Smoking Cessation Date Hx Smoking Cessation Counseling Hematologic Medial History Hematologic Hx - specialty plant supervisor: Hematologic Medical Hx - frame tender Hx of Blood Transfusion No 12/19/24 12:42 Hx of Transfusion in last 3 No 12/19/24 12:42 Months Date of Last Transfusion (if within last 3 months) Ever experience any problems No 12/19/24 12:42 with transfusion(s)? Specify any problems Hx of Preganancy in last 3 No 12/19/24 12:42 Months Nurse Filling Out Transfusion [id number] 12/19/24 12:42 & Questions: Date: 12/19/24 12/19/24 12:42 Time: 12:44 12/19/24 12:42 Patient unable to answer at this time (ie. confused, unrespo /Reproduction History /Reproductive History - specialty plant supervisor: /Reproductive Hx- specialty plant supervisor Hx Now Gestational Age (in weeks): EDC: Hx Hx Para Hx Section SAB No 06/02/24 12:12 Active Medications Active Medications: Current Medications Generic Name Dose Route Start Last Admin Trade Name Freq PRN Reason Stop Dose Admin Lactated Ringer's 1,000 mls @ 15 mls/hr 12/22/24 12:00 12/22/24 12:20 IV 15 mls/hr .Q48H SHANTA Administration PFSH Medical History Kidney stones Thyroid disease Uses wheelchair Back pain Parkinson's disease Orthostatic hypotension History of steroid therapy Wears glasses Post-menopausal Cancer Arthritis History of renal disease DVT (deep venous thrombosis) Easy bruising Syncope Dietary restriction History of diverticulitis Interstitial emphysema of lung Non-smoker History of edema Overactive bladder Intramural leiomyoma of uterus Esophageal dysmotility Abnormal Pap smear of vagina and vaginal HPV Positive P-ANCA titer Hypothyroid Home Medications ?Medication ?Instructions ?Recorded ?Last Taken ?Type aspirin 81 mg chewable tablet 81 mg PO DAILY@0800 06/28/18 12/21/24 History cholecalciferol (vitamin D3) 25 1,000 unit PO BID 06/28/18 12/21/24 History mcg (1,000 unit) tablet (Vitamin D3) mycophenolate mofetil 500 mg 500 mg PO BID 03/04/24 12/21/24 History tablet (CellCept) levothyroxine 100 mcg capsule 100 mcg PO QDAY 04/06/24 12/22/24 History ondansetron 4 mg disintegrating 4 mg PO Q8H PRN nausea and vomiting 04/06/24 Unknown History tablet Lactobacillus acidophilus 250 500 mmu cells PO DAILY 06/02/24 12/21/24 History million cell capsule (Probiotic Acidophilus) amitriptyline 50 mg tablet 100 mg PO QHS 07/07/24 12/21/24 History carbidopa 25 mg-levodopa 100 mg 1 tab PO TID 10/11/24 12/21/24 History tablet (Sinemet) pantoprazole 20 mg tablet,delayed 20 mg PO QDAY #30 tabs 10/11/24 12/21/24 Rx release carbidopa 25 mg tablet 25 mg PO TID 11/08/24 12/21/24 History plecanatide 3 mg tablet (Trulance) 3 mg PO QDAY #30 tabs 11/21/24 12/21/24 Rx fludrocortisone 0.1 mg tablet 0.2 mg PO DAILY 12/19/24 12/21/24 History multivitamin (Daily Multi-Vitamin 1 tab PO DAILY 12/19/24 12/21/24 History tablet) Allergy/AdvReac Type Severity Reaction Status Date / Time cetirizine (From [facility]) Allergy Intermediate Rash Verified 12/22/24 12:18 erythromycin base AdvReac Intermediate Diarrhea Verified 12/22/24 12:18 azithromycin AdvReac Mild Diarrhea Verified 12/22/24 12:18 Family History Mother Thyroid disorder Hypertension Father Heart disease Hypertension COPD (chronic obstructive pulmonary disease) Surgical History S/P laparoscopic appendectomy Hx of colonoscopy History of esophagogastroduodenoscopy (EGD) Hx of tubal ligation Hx of bladder repair surgery H/O thymectomy History of spinal fusion History of cholecystectomy History of colon resection Social History Smoking Status: Never smoker alcohol intake: current alcohol intake frequency: holidays/special occasions only Review of Systems (Anesthesia) ROS Narrative System reviewed and no additional complaints, except as documented.
--- NOTE | 2024-12-22 13:56 | OP.PROVAT_ITS ---
12/22/2024 Gonzalo Dasilva Re : Colonoscopy procedure for Asia Garciar Brown This procedure was performed on Sunday, December 22, 2024. My impressions and recommendations are as follows: Impressions : - Stool in the entire examined colon. - No specimens collected. Recommendations : - Discharge patient to home. - Resume previous diet. - Continue present medications. - Repeat colonoscopy because the bowel preparation was poor. My findings are described in the full procedure note, which is enclosed. If I can be of further assistance, please feel free to contact me at . Sincerely, Aditya Cota, 12/22/2024 1:55:32 PM This report has been signed electronically.
--- NOTE | 2024-12-22 13:56 | OP.COLON_ITS ---
Patient Name: Asia Merchant Procedure Date: 12/22/2024 1:36 PM Date of : 1960 Age: 64 Procedure: Colonoscopy Indications: Screening for colorectal malignant neoplasm Providers: Aditya Cota DO Referring MD: Gonzalo Dasilva Medicines: Monitored Anesthesia Care Patient Profile: This is a 64 year old female. Refer to note in patient chart for documentation of history and physical. Last Colonoscopy: several years ago. Complications: No immediate complications. Procedure: Pre-Anesthesia Assessment: - Prior to the procedure, a History and Physical was performed, and patient medications and allergies were reviewed. The patient is competent. The risks and benefits of the procedure and the sedation options and risks were discussed with the patient. All questions were answered and informed consent was obtained. Patient identification and proposed procedure were verified by the physician in the pre-procedure area. Mental Status Examination: alert and oriented. Airway Examination: normal oropharyngeal airway and neck mobility. Respiratory Examination: clear to auscultation. CV Examination: normal. Prophylactic Antibiotics: The patient does not require prophylactic antibiotics. Prior Anticoagulants: The patient has taken no anticoagulant or antiplatelet agents except for NSAID medication. ASA Grade Assessment: II - A patient with mild systemic disease. After reviewing the risks and benefits, the patient was deemed in satisfactory condition to undergo the procedure. The anesthesia plan was to use monitored anesthesia care (MAC). Immediately prior to administration of medications, the patient was re-assessed for adequacy to receive sedatives. The heart rate, respiratory rate, oxygen saturations, blood pressure, adequacy of pulmonary ventilation, and response to care were monitored throughout the procedure. The physical status of the patient was re-assessed after the procedure. After I obtained informed consent, the scope was passed under direct vision. Throughout the procedure, the patient's blood pressure, pulse, and oxygen saturations were monitored continuously. The Colonoscope was introduced through the anus and advanced to the hepatic flexure. The colonoscopy was performed without difficulty. The patient tolerated the procedure well. The quality of the bowel preparation was 90 percent obscured. Anatomical landmarks were photographed. Scope In: 1:47:21 PM Scope Out: 1:50:41 PM Total Procedure Duration Time 0 hours 3 minutes 20 seconds Findings: The perianal and digital rectal examinations were normal. Copious quantities of semi-liquid semi-solid solid stool was found in the entire colon, precluding visualization. Lavage of the area was performed using copious amounts of sterile water, resulting in incomplete clearance with continued poor visualization. Impression: - Stool in the entire examined colon. - No specimens collected. Recommendation: - Discharge patient to home. - Resume previous diet. - Continue present medications. - Repeat colonoscopy because the bowel preparation was poor. Procedure Code(s): --- Professional --- 05251, 53, Colonoscopy, flexible; diagnostic, including collection of specimen(s) by brushing or washing, when performed (separate procedure) CPT copyright 2021 [employer]. All rights reserved. The codes documented in this report are preliminary and upon clinical coder review may be revised to meet current compliance requirements. Aditya Cota, 12/22/2024 1:55:32 PM This report has been signed electronically. Number of Addenda: 0 Note Initiated On: 12/22/2024 1:36 PM
--- NOTE | 2024-12-22 13:58 | PCM.POST.ANE ---
Anesthesia: Postop Eval I Current Vital Signs Temperature: 97.9 F Pulse Rate: 84 Blood Pressure: 123/55 Respiratory Rate: 20 Pulse Ox: 100 Assessment Airway patent: Yes Spontaneous unlabored respirations: Yes nausea: No Vomiting: No Anesthesia Complication: No Fluid Hydration Crystalloid volume administer (ml): 200 Total IV fluid infused: 200 Progress Note Anesthesia document: Postop Eval 1 completed: Yes
== END 2024-12-22 14:39 | disposition home or self-care (01) ==
LOC: EN 11:52 → AC 11:53
PROVIDERS: PCP Family Medicine; Referring Provider Family Medicine; Visit Provider Internal Medicine Gastroenterology
PROC: 0DJD8ZZ Inspection of Lower Intestinal Tract, Via Natural or Artificial Opening Endoscopic (ICD-10-PCS; CPT 45378; principal; 2024-12-22 12:55)
DX: Z12.11 Encounter for screening for malignant neoplasm of colon (principal); J84.9 Interstitial pulmonary disease, unspecified; K58.1 Irritable bowel syndrome with constipation; R10.9 Unspecified abdominal pain; E03.9 Hypothyroidism, unspecified; Z79.82 Long term (current) use of aspirin; Z79.890 Hormone replacement therapy; Z79.899 Other long term (current) drug therapy; Z86.718 Personal history of other venous thrombosis and embolism
CPT/HCPCS: G0121; J2405

== ENCOUNTER → 2024-12-29 | Outpatient (CLI) | payer MEDICARE, SELFPAY ==
--- NOTE | 2024-12-29 08:30 | RAD_ITS ---
PROCEDURE: ABDOMEN SINGLE VIEW 12/29/2024 REASON FOR EXAM: CONSTIPATATION, IMPACTION TECHNIQUE: ABDOMEN SINGLE VIEW COMPARISON: None. FINDINGS: There is a nonobstructive bowel gas pattern. There is stool noted throughout the colon and in the rectal vault. There are no abnormal soft tissue calcifications or radiopaque foreign bodies. There is a bladder stimulator with the generator in the left buttock. There is mild multilevel degenerative disc disease of the lumbar spine. RAD/Abdomen Single View IMPRESSION: Mild constipation. Other findings as noted. Reading Location: [id number]
== END | disposition home or self-care (01) ==
LOC: RAD 08:29
PROVIDERS: PCP Family Medicine; Referring Provider Student in an Organized Health Care Education/Training Program; Visit Provider Student in an Organized Health Care Education/Training Program
DX: K58.1 Irritable bowel syndrome with constipation (principal)
CPT/HCPCS: 74018

== ENCOUNTER 2025-01-21 19:25 | Emergency (ER) | payer MEDICARE, SELFPAY ==
[2025-01-21] VITALS (7 sets, daily range): BP systolic 92–137; BP diastolic 55–101; PULSE 99–114; RESP 15–24; TEMP 36.5–37.7; O2SAT 92–100; BMI 27.6
--- NOTE | 2025-01-21 19:39 | EDS_ITS ---
HPI HPI - Female History of Present Illness 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: Vag Bleeding PFSH PFS Medical History Kidney stones Thyroid disease Uses wheelchair Back pain Parkinson's disease Orthostatic hypotension History of steroid therapy Wears glasses Post-menopausal Cancer Arthritis History of renal disease DVT (deep venous thrombosis) Easy bruising Syncope Dietary restriction History of diverticulitis Interstitial emphysema of lung Non-smoker History of edema Overactive bladder Intramural leiomyoma of uterus Esophageal dysmotility Abnormal Pap smear of vagina and vaginal HPV Positive P-ANCA titer Hypothyroid Home Medications ?Medication ?Instructions ?Recorded ?Last Taken ?Type aspirin 81 mg chewable tablet 81 mg PO DAILY@0800 06/1712/21/24 History cholecalciferol (vitamin D3) 25 1,000 unit PO BID 06/1712/21/24 History mcg (1,000 unit) tablet (Vitamin D3) mycophenolate mofetil 500 mg 500 mg PO BID 03/04/24 History tablet (CellCept) levothyroxine 100 mcg capsule 100 mcg PO QDAY 04/06/24 12/22/24 History ondansetron 4 mg disintegrating 4 mg PO Q8H PRN nausea and vomiting 04/06/24 Unknown History tablet Lactobacillus acidophilus 250 500 mmu cells PO DAILY 0 06/02/24 12/21/24 History million cell capsule (Probiotic Acidophilus) amitriptyline 50 mg tablet 100 mg PO QHS 07/07/2412/08 History carbidopa 25 mg-levodopa 100 mg 1 tab PO TID 10/11/24 12/21/24 History tablet (Sinemet) pantoprazole 20 mg tablet,delayed 20 mg PO QDAY #30 ta bs 10/11/24 12/21/24 Rx release carbidopa 25 mg tablet 25 mg PO TID 11/08/24 History plecanatide 3 mg tablet (Trulance) 3 mg PO QDAY #30 ta bs 11/21/24 12/21/24 Rx multivitamin (Daily Multi-Vitamin 1 tab PO DAILY 12/1912/21/24 History tablet) fludrocortisone 0.1 mg tablet 0.3 mg PO DAILY 12/29/24 Unknown History Allergy/AdvReac Type Severity Reaction Status Date / Time cetirizine (From [facility]) Allergy Intermediate Rash Verified 01/21/25 19:26 erythromycin base AdvReac Intermediate Diarrhea Verified 01/21/25 19:26 azithromycin AdvReac Mild Diarrhea Verified 01/21/25 19:26 Family History Mother Thyroid disorder Hypertension Father Heart disease Hypertension COPD (chronic obstructive pulmonary disease) Surgical History S/P laparoscopic appendectomy Hx of colonoscopy History of esophagogastroduodenoscopy (EGD) Hx of tubal ligation Hx of bladder repair surgery H/O thymectomy History of spinal fusion History of cholecystectomy History of colon resection Social History Smoking Status: Never smoker alcohol intake: current alcohol intake frequency: holidays/special occasions only EXAM Physical Exam Const Vital Signs: 01/21/25 19:26 01/21/25 21:20 01/21/25 21:44 Temperature 97.7 F L 99.8 F H Temperature Source Temporal Oral Pulse Rate 114 H 104 H 99 Respiratory Rate 15 18 18 Blood Pressure 92/62 103/55 L 98/68 Blood Pressure Mean 72 71 78 Blood Pressure Source Monitor Blood Pressure Position Semi-Fowlers Blood Pressure Location Left Arm Pulse Ox 100 92 97 Oxygen Delivery Method Room Air Room Air Room Air 01/21/25 21:59 Temperature 99.2 F H Temperature Source Oral Pulse Rate 100 Respiratory Rate 20 H Blood Pressure 98/63 Blood Pressure Mean 74 Blood Pressure Source Monitor Blood Pressure Position Supine Blood Pressure Location Left Arm Pulse Ox 100 Oxygen Delivery Method Room Air MDM MDM MDM Narrative Medical decision making narrative: HISTORY OF PRESENT ILLNESS: Chief complaint: Vaginal bleed 64-year-old female history of nephrolithiasis, Parkinson's disease, hypot hyroidism, GERD, DVT, emphysema, overactive bladder, leiomyoma of the uterus presents with vaginal bleeding. Per triage note patient had bright red vaginal bleeding with large clots that started yesterday around 130. Notes she is bleeding through to heavy flow packages. Endorses increased fatigue and shaking. Patient does not take blood thinners. REVIEW OF SYSTEMS: Pertinent positives: Vaginal bleeding, lightheadedness, fatigue, near syncope Pertinent negatives: Chest pain PHYSICAL EXAM: Nursing triage notes reviewed, Vital signs reviewed Constitutional: please see [facility] HENT: MMM Eyes: Pupils equal round and reactive to light, Extraocular muscles intact Neck: No stridor, no JVD, full neck ROM Lungs: Clear to auscultation, No wheezing or rales. No increased work of breathing, no conversational dyspnea, no accessory muscle use, no nasal flaring. No respiratory distress noted Heart: Regular rate and rhythm, No murmurs, No rubs and No gallops, 2+ distal pulses (radial, femoral, posterior tibial) in all extremities Abdomen: Soft, there is no tenderness, rigidity, rebound or guarding, no obvious peritoneal signs, no palpable pulsatile abdominal masses, no auscultated abdom inal bruit : No CVAT, pelvic exam performed with vice president business & corporate development in room showed no obvious abnormalities. No lacerations. Cervical os was closed. No active bleeding. Extremities: No edema Neuro: No new focal neurological deficits, cranial nerves II through XII intact, 5/5 strength in all present extremities. Intact sensation to light touch in all present extremities, 2+ reflexes bilateral patella tendons. Skin: No rash or lesions noted MEDICAL DECISION MAKING: 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: please see [facility] External records reviewed: Reviewed prior imaging studies: Reviewed CT scan head and pelvis from 03/09. No uterine masses were noted during this evaluation Factors affecting care: As per HPI Social determinants of health: none History obtained from others: family Consults: LIQUOR DEPARTMENT MANAGER (Dr. Juarez Bryant) discussed giving TXA the patient has heavy bleeding. Discussed giving progesterone if heavy bleeding. Discussed transferring to definitive Bill Of Lading Clerk-oncology care. LIQUOR DEPARTMENT MANAGER [facility] (Dr. Chang), ER (Dr. Muhammad) [facility] Narrative: Patient was initially tachycardic heart rate of 114, soft blood pressure initially at 92/62, afebrile. Exam without abdominal TTP. Pelvic exam essentially unremarkable with no active bleeding. Cervical os closed. I considered the following differential diagnosis: Uterine leiomyoma, anemia, pelvic mass I obtained broad lab and imaging work to further determine if the patient was suffering from a life-threatening etiology. Initially resuscitated patient with 1 L normal saline ALL IMAGES (IF OBTAINED) HAVE BEEN PERSONALLY REVIEWED AND INTERPRETED BY MYSELF . CBC with leukocytosis suggestive of systemic examination, noted severe anemia with hemoglobin 8.5 prior 11.6, no thrombocytopenia BMP with hyponatremia, baseline CKD, no evidence hepatobiliary obstruction CT scan of the pelvis shows the following: Clinical correlation for constipation. Gastrointestinal findings discussed above. Bilateral worsening moderate to severe hydronephrosis. Thick-walled abnormal appearance of the urinary bladder. Genitourinary findings, differential and recommendations discussed above. Transvaginal ultrasound shows Fluid-filled uterine cavity. This is atypical for the patient's age. The endometrium itself is not clearly identified or measured. After normal saline patient's blood pressure improved. Given drop in hemoglobin and concern for ongoing bleeding I did order 2 units of packed red blood cells. These were transfused. Discussed the case with LIQUOR DEPARTMENT MANAGER here as well as [facility]. Discussed with [facility] OB who noted patient was appropriate ED to ED transfer. Discussed with ED physician Dr. Muhammad who agreed to accept the patient in transfer. Upon reassessment patient blood pressure improved to 122/101. The patient and/or family, caregivers express understanding. The patient and/or family, caregivers agrees with the plan. Shared decision making: I will have a discussion with the patient and or visitors regarding risk/benefits of further testing or admission. They will be made aware of of the risk/benefits inherent in this decision they will be given the opportunity to voice understanding. Total critical care time today provided was at least 60 minutes. This excludes separately billable procedures. Critical care time (if documented) is secondary to the patient having high probability of clinically significant/life threatening deterioration in the patient's condition which required my urgent intervention. Impression: 1. Acute blood loss anemia 2. Vaginal bleeding 3. Hypotension Dispo: Transfer to [facility] emergency department This note was generated with [employer] dictation software. It may contain incorrect words, spelling, and punctuation that were not noted in review of the chart prior to signing. Lab Data Labs: Laboratory Results - last 24 hr 01/21/25 20:00 WBC 22.8 H RBC 3.24 L Hgb 8.5 L Hct 26.9 L MCV 83.0 MCH 26.2 L MCHC 31.6 L RDW Std Deviation 42.1 RDW Coeff of Vanessa 13.8 Plt Count 281 MPV 10.1 Immature Gran % (Auto) 0.700 Neut % (Auto) 86.6 H Lymph % (Auto) 3.3 L Dickson % (Auto) 9.3 Eos % (Auto) 0.0 Baso % (Auto) 0.1 Absolute Neuts (auto) 19.8 H Absolute Lymphs (auto) 0.75 L Nucleated RBC % 0 Platelet Estimate ADEQUATE RBC Morphology NORM C+C Sodium 132 L Potassium 3.5 Chloride 98 Carbon Dioxide 22.4 Anion Gap 12 BUN 32 H Creatinine 2.06 H Estim Creat Clear Calc 27.29 L Est GFR (MDRD) Non-Af 26 L BUN/Creatinine Ratio 15.5 Glucose 157 H Calcium 9.3 Total Bilirubin 0.49 AST 32 ALT < 5 Alkaline Phosphatase 102 Total Protein 6.2 Albumin 3.3 L Globulin 2.8 Albumin/Globulin Ratio 1.2 Blood Type O POSITIVE Antibody Screen NEGATIVE Crossmatch See Detail Radiography Diagnostic Testing: Clinical Impression(s) from Imaging Studies Abdomen/Pelvis CT 01/21/25 21:03 IMPRESSION: Clinical correlation for constipation. Gastrointestinal findings discussed above. - Bilateral worsening moderate to severe hydronephrosis. Thick-walled abnormal appearance of the urinary bladder. Genitourinary findings, differential and recommendations discussed above. - Other findings discussed above in detail. Reading Location: [facility] Discharge Plan Triage 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: Vag Bleeding ED Provider: Óscar Mosher Dx/Rx/DC Orders Prescriptions: No Action ondansetron 4 mg tablet,disintegrating 4 mg PO Q8H PRN (Reason: nausea and vomiting) levothyroxine 100 mcg capsule 100 mcg PO QDAY carbidopa-levodopa [Sinemet] 25-100 mg tablet 1 tab PO TID pantoprazole 20 mg tablet,delayed release (DR/EC) 20 mg PO QDAY Qty: 30 2RF carbidopa 25 mg tablet 25 mg PO TID aspirin 81 MG tablet,chewable 81 mg PO DAILY@0800 cholecalciferol (vitamin D3) [Vitamin D3] 1,000 UNIT tablet 1,000 unit PO BID mycophenolate mofetil [CellCept] 500 mg tablet 500 mg PO BID Probiotic Acidophilus 250 million cell capsule 500 mmu cells PO DAILY amitriptyline 50 mg tablet 100 mg PO QHS multivitamin [Daily Multi-Vitamin] Tablet 1 tab PO DAILY fludrocortisone 0.1 mg tablet 0.3 mg PO DAILY Trulance 3 mg tablet 3 mg PO QDAY Qty: 30 1RF Primary Care Provider: Gonzalo Dasilva Referrals: Gonzalo Dasilva MD [Primary Care Provider] - Print Language: Montserratian Disposition Disposition: Acute Care Hospital Discharge Location: [facility]
--- NOTE | 2025-01-21 19:42 | EKG12_ITS ---
Test Reason : DYSRHYTHMIA Blood Pressure : */* mmHG Vent. Rate : 108 BPM Atrial Rate : 108 BPM P-R Int : 168 ms QRS Dur : 82 ms QT Int : 340 ms P-R-T Axes : -15 -23 0 degrees QTcB Int : 455 ms Sinus tachycardia Minimal voltage criteria for LVH, may be normal variant ( R in aVL ) Nonspecific T wave abnormality Abnormal ECG Confirmed by Dk Parkinson ([id number]), research editor ABDULKADIR LOPEZ ([id number]) on 01/22/2025 9:53:08 AM Referred By: Confirmed By: Dk Parkinson
[2025-01-21 20:08] LABS: Hematocrit 26.9 % (37-47); Hemoglobin 8.5 g/dL (12.0-15.0); Immature Granulocytes Count 0.170 X10^3/uL (0.0-0.0); Mean Corp Hgb Conc 31.6 g/dL (32-36); Mean Corpuscular Volume 83.0 fL (81-99); Mean Platelet Vol. 10.1 fl (6.2-12.0); NRBC Flagged by Analyzer 0 % (0-5); POSITIVE DIFFERENTIAL YES; Platelet Count 281 K/mm3 (150-450); RBC Distribution Width CV 13.8 % (11.6-14.6); RBC Distribution Width SD 42.1 fl (35.1-43.9); Red Blood Count 3.24 M/mm3 (4.2-5.4); White Blood Count 22.8 K/mm3 (4.4-11.0)
--- OUTSIDE RECORDS SUMMARY | 2025-01-21 20:20 | XMS RPT_ITS | CCD ---
Author Organization [facility] Care Team Providers Care Rn Hemo Dialysis Name Role Phone Priyanka Smith MD Primary Care Provider Regulo Mendoza MD Unavailable MATHEW YANG JR Referring UnavailPRIYANKA Francisco Primary Care Unavailable PRIYANKA SMITH Primary Care Unavailable MATHEW YANG JR Referring UnavailPRIYANKA Francisco Primary Care Unavailable PRIYANKA SMITH Primary Care Unavailable JOHN MG Attending Unavailable JOHN MG Admitting Unavailable Priyanka Smith MD Primary Care Provider Regulo Mendoza MD Unavailable Priyanka Smith MD Primary Care Provider Priyanka Smith Primary Care Provider Katherine Bowen MD Unavailable Audi Bae MD Unavailable Phong Blake MD Unavailable PRIYANKA SMITH Primary Care Unavailable PHONG BLAKE Attending Unavailable PRIYANKA SMITH Primary Care Unavailable ANTONY AWAD Referring Unavailable PRIYANKA SMITH Primary Care Unavailable KATHERINE BOWEN Attending Unavailable KATHERINE BOWEN Admitting Unavailable PRIYANKA SMITH Primary Care Unavailable MAURILIO GROVES Admitting Unavailable PEPITO STEVE Consulting Unavailable JESSE DO Attending Unavailable NONE, PCP Referring Unavailable Pauline BE.Jacqueline DAWSON Unavailable Juwan Land APRN.CNP Unavailable MATHEW YANG JR Admitting Unavaila MATHEW Garcia JR Attending Unavaila sean YANG JR MATHEW MUNSON Referring Unavaila PRIYANKA Gilbert Primary Care Unavailable [employer] DIRECTOR, Jacqueline Unavailable Unavail able [employer] DIRECTOR, Jacqueline Unavailable Luis BHATT, Dr. Cooley Primary Care Provider [phone] Luis BHATT, Dr. Cooley Referring Provider Hilary Solares Attending Provider [employer] DIRECTOR, Jacqueline Unavailable [employer] DIRECTOR, Jacqueline Ana Unavailable Luis BHATT, Dr. Cooley Primary Care Provider Luis BHATT, Dr. Cooley Referring Provider Hilary Solares Attending Provider Cipriano ABARCA, Dr. Burgess Attending Provider Brown BHATT, Dr. Sánchez Primary Care Provider Brown BHATT, Dr. Sánchez Referring Provider Dr. Aditya Cota DO Other Provider Hilary Solares Referring Provider PRIYANKA SMITH Primary Care Unavailable KAREN ALCANTARA Attending Unavailable KAREN ALCANTARA Referring Unavailable PRIYANKA SMITH Primary Care Unavailable GERMAN GRUBBS Attending Unavailable PRIYANKA SMITH Primary Care Unavailable GEMMA ROBERTS Attending Unavailable BOGADN ROBERTS Referring Unavailable PRIYANKA SMITH Primary Care Unavailable BECCA MIR Referring Unavailable ELDERPRIYANKA MARSHALL Primary Care Unavailable PEPITO STEVE Referring Unavailable ELDERPRIYANKA MARSHALL Primary Care Unavailable JUWAN LAND Attending Unavailable PRIYANKA SMITH Primary Care Unavailable JUWAN LAND Referring Unavailable ELDERPRIYANKA MARSHALL Primary Care Unavailable BOGDAN ROBERTS Attending Unavailable PRIYANKA SMITH Primary Care Unavailable PEYTON DIAZ Attending Unavailable ELDERPRIYANKA MARSHALL Primary Care Unavailable TEAGANKAREEM MATHEW SAPP ARPIT Attending Unavaila PRIYANKA Gilbert Primary Care Unavailable JASMYNE DAY Attending Unavailab le ELDERBROCK, PRIYANKA D Primary Care Unavailable BENDARAM, LATHA LAWSON Referring Unavaila ble ELDERBROCK, PRIYANKA D Primary Care Unavailable KAREN ALCANTARA Referring Unavailable ELDERBROCK, PRIYANKA D Primary Care Unavailable BENDARAM, LATHA LAWSON Attending Unavaila ble ELDERBROCK, PRIYANKA D Referring Unavailable ELDERBROCK, PRIYANKA D Primary Care Unavailable BENDARAM, LATHA LAWSON Referring Unavaila ble ELDERBROCK, PRIYANKA D Primary Care Unavailable WILEY BENITEZ Attending Unavailable SELF Referring Unavailable ELDERBROCK, PRIYANKA D Primary Care Unavailable KAREN ALCANTARA Referring Unavailable ELDERBROCK, PRIYANKA D Primary Care Unavailable BECCA MIR Attending Unavailable ELDERBROCK, PRIYANKA D Primary Care Unavailable PEPITO STEVE Referring Unavailable ELDERBROCK, PRIYANKA D Primary Care Unavailable BECCA MIR Referring Unavailable ELDERBROCK, PRIYANKA D Primary Care Unavailable BECCA MIR Referring Unavailable ELDERBROCK, PRIYANKA D Primary Care Unavailable JASMYNE DAY Attending Unavailab le ELDERBROCK, PRIYANKA D Primary Care Unavailable CHARIS LOPEZ Attending Unavailable ELDERBROCK, PRIYANKA D Primary Care Unavailable CYNDI NAIK Attending Unavailable ELDERBROCK, PRIYANKA D Primary Care Unavailable MATHEW YANG JR Referring Unavaila ble ELDERBROCK, PRIYANKA D Primary Care Unavailable MAIRA CHEN Attending Unavailable LEANDRO VARGAS Attending Unavailable BARLEY, TARIQ Referring Unavailable ELDERBROCK, PRIYANKA D Primary Care Unavailable LEANDRO VARGAS Attending Unavailable BARLEY, TARIQ Referring Unavailable ELDERBROCK, PRIYANKA D Primary Care Unavailable EUFEMIA ANGLIN Attending Unavailable BARLEY, TARIQ Referring Unavailable ELDERBROCK, PRIYANKA D Primary Care Unavailable MAIRA CHEN Referring Unavailable ELDERBROCK, PRIYANKA D Primary Care Unavailable JASMYNE DAY Referring Unavailab le ELDERBROCK, PRIYANKA D Primary Care Unavailable RAUL JUAN Attending Unavailable RAUL JUAN Referring Unavailable ELDERBROCK, PRIYANKA D Primary Care Unavailable ELDERBROCK, PRIYANKA D Primary Care Unavailable JONATHAN MONTERROSO Attending Unavailable ELDERBROCK, PRIYANKA D Primary Care Unavailable WILEY BENITEZ Attending Unavailable ELDERBROCK, PRIYANKA D Primary Care Unavailable KAREN ALCANTARA Attending Unavailable KAREN ALCANTARA Referring Unavailable ELDERBROCK, PRIYANKA D Primary Care Unavailable BENDARAM, LATHA LAWSON Attending Unavaila ble ELDERBROCK, PRIYANKA Mckay Primary Care Unavailable BOGDAN ROBERTS Attending Unavailable JACQUELINE VALADEZ Referring Unavailabl e ELDERBROCK, PRIYANKA Mckay Primary Care Unavailable JACQUELINE VALADEZ Referring Unavailabl e ELDERBROCK, PRIYANKA Mckay Primary Care Unavailable JACQUELINE VALADEZ Attending Unavailabl e SELF Referring Unavailable ELDERDEMIANCKPRIYANKA Primary Care Unavailable WILEY BENITEZ Attending Unavailable ELDERPRIYANKA MARSHALL Primary Care Unavailable RAUL JUAN Referring Unavailable ELDERDEMIANCKPRIYANKA Primary Care Unavailable RIKA ADAM Attending Unavailable ELDERDEMIANCKPRIYANKA Primary Care Unavailable BECCA MIR Referring Unavailable ELDERBROCK, PRIYANKA Mckay Primary Care Unavailable JACQUELINE VALADEZ Attending Unavailabl e ELDERPRIYANKA MARSHALL Primary Care Unavailable ELDERPRIYANKA MARSHALL Attending Unavailable PRIYANKA SMITH Primary Care Unavailable PRIYANKA SMITH Referring Unavailable ELDERPRIYANKA MARSHALL Primary Care Unavailable JASMYNE DAY Attending Unavailab le SELF Referring Unavailable ELDERPRIYANKA MARSHALL Primary Care Unavailable LEANDRO VARGAS Attending Unavailable PRIYANKA SMITH Primary Care Unavailable BARLEY, TARIQ Referring Unavailable LEANDRO VARGAS Attending Unavailable CECILIA TARIQ Referring Unavailable ELDERDEMIANCKPRIYANKA Primary Care Unavailable MATHEW YANG JR Referring Unavaila ble ELDERBROCK, PRIYANKA Mckay Primary Care Unavailable MATHEW YANG JR Referring Unavaila ble ELDERBROCK, PRIYANKA Mckay Primary Care Unavailable MAIRA CHEN Referring Unavailable ELDERPRIYANKA MARSHALL Primary Care Unavailable CHARIS LOPEZ Referring Unavailable ELDERPRIYANKA MARSHALL Primary Care Unavailable LATHA CUEVAS Attending Unavaila ble ELDERDEMIANCKPRIYANKA Primary Care Unavailable JACQUELINE VALADEZ Referring Unavailabl e ELDERBROCKPRIYANKA Primary Care Unavailable GEMMA ROBERTS Attending Unavailable PRIYANKA SMITH Primary Care Unavailable PRIYANKA SMITH Attending Unavailable PRIYANKA SMITH Primary Care Unavailable PRIYANKA SMITH Primary Care Unavailable PRIYANKA SMITH Primary Care Unavailable JACQUELINE VALADEZ Attending Unavailabl e ELDERPRIYANKA MARSHALL Primary Care Unavailable JACQUELINE VALADEZ Referring Unavailabl e ELDERPRIYANKA MARSHALL Primary Care Unavailable PRIYANKA SMITH Primary Care Unavailable GEMMA ROBERTS Attending Unavailable BOGDAN ROBERTS Referring Unavailable ELDERBROCK, PRIYANKA D Primary Care Unavailable ELDERBROCK, PRIYANKA D Primary Care Unavailable Elderbrock, Priyanka Primary Care Unavailable Elderbrock, Priyanka Referring Unavailable AtanasHilary stewart Attending Unavailable Elderbrock, Priyanka Primary Care Unavailable Elderbrock, Pryianka Referring Unavailable AtanasovHilary Attending Unavailable Bursley, Gonzalo Primary Care Unavailable Bursley, Gonzalo Referring Unavailable Friend, Aditya Attending Unavailable Elderbrock, Priyanka Primary Care Unavailable Elderbrock, Priyanka Referring Unavailable Friend, Aditya Attending Unavailable AtaHilary robert Referring Unavailable Bursley, Gonzalo Primary Care Unavailable AtanasovHilary Attending Unavailable Bursley, Gonzalo Primary Care Unavailable Friend, Aditya Attending Unavailable Elderbrock, Priyanka Primary Care Unavailable [employer] [place] Attending Unavailabl e Bursley, Gonzalo Primary Care Unavailable Bursley, Gonzalo Referring Unavailable AtanasovHilary Attending Unavailable Bursley, Gonzalo Primary Care Unavailable Bursley, Gonzalo Referring Unavailable Friend, Aditya Consulting Unavailable Friend, Aditya Attending Unavailable Elderbrock, Priyanka Primary Care Unavailable Elderbrock, Priyanka Referring Unavailable Friend, Aditya Consulting Unavailable Friend, Aditya Attending Unavailable Elderbrock, Priyanka Referring Unavailable Elderbrock, Priyanka Primary Care Unavailable Hilary Soto Attending Unavailable Elderbrock, Priyanka Primary Care Unavailable Elderbrock, Priyanka Referring Unavailable Atanaspat, Hilary Attending Unavailable Allergies Allergy Classification Reported Allergen(s) Allergy Type Date of Onset Reaction(s) Facility Cetirizine (4 sources) Cetirizine Drug Allergy 08-07-19 15 Itching [facility] Macrolides (antibiotic) (4 sources) Erythromycin Drug Allergy 09-15-19 Diarrhea [facility] (20 sources) Cetirizine; Translations: [CETIRIZINE HCL] Drug Allergy 08-07-19 15 Itching [facility] (20 sources) Seasonal allergy; Translations: [SEASONAL ALLERGIES] Propensity to adverse reactions 08-14-19 10 Cough [facility] Work Phone: (20 sources) environmental [Other] Propensity to adverse reactions 12-29-19 07 [facility] Work Phone: (20 sources) Erythromycin; Translations: [ERYTHROMYCIN] Drug Allergy 09-15-19 23 Diarrhea [facility] (1 source) OTHER; Translations: [OTHER] Propensity to adverse reactions (disorder) 12-29-19 [facility] Other [facility] (18 sources) Azithromycin Drug Allergy 03-04-20 Diarrhea [facility] (13 sources) Seasonal allergy Environmental allergy 03-04-20 Other [facility] (20 sources) Amantadine; Translations: [AMANTADINE] Drug All[facility] Cetirizine Drug Allergy 06-06-19 Rash [facility] (10 sources) ARIPiprazole; Translations: [ARIPIPRAZOLE] Drug Allergy 11-[facility]-19 [facility] (10 sources) Haloperidol; Translations: [HALOPERIDOL] Drug Allergy 11-17-19 Contraindicati [facility] (10 sources) Metoclopramide; Translations: [METOCLOPRAMIDE] Drug Allergy 11-17-19 [facility] (10 sources) OLANZapine; Translations: [OLANZAPINE] Drug Allergy 11-17-19 [facility] (10 sources) Prochlorperazine ; Translations: [PROCHLORPERAZIN E] Drug Allergy 11-17-19 [facility] (10 sources) Promethazine; Translations: [PROMETHAZINE] Drug Allergy 11-17-19 [facility] (1 source) Azithromycin Drug Allergy 12-23-19 [facility] Repository (1 source) Cetirizine Drug Allergy 12-23-19 [facility] Repository (1 source) Erythromycin Drug Allergy 12-23-19 [facility] Repository Medications Current Medications Medication Drug Class(es) Dates Sig (Normalized) Sig (Original) acetaminophen 325 mg / oxyCODONE hydrochloride 5 mg oral tablet (13 sources) Opioid Agonist Start: 03-23-2024 End: 05-30-2024 oxyCODONE-acetamino phen (PERCOCET) 5-325 mg tablet 03/23/2024 05/30/2024 Discontinued Start: 03-23-2024 End: 03-27-2024 take 1 tablet by mouth every six hours as needed for pain oxyCODONE-acetaminophen (Percocet) 5-325 MG tablet Indications: Hydronephrosis with urinary obstruction due to ureteral calculus Take 1 tablet by mouth every 6 hours as needed for severe pain (7-10) for up to 4 days. 10 tablet 03/23/2024 5:22 PM EST 03/23/2024 03/27/2024 Active amitriptyline hydrochloride 100 mg oral tablet (20 sources) Tricyclic Antidepressant Start: 11-14-2024 take 1 tablet by mouth once daily at bedtime amitriptyline (ELAVIL) 100 mg tablet Indications: Chronic interstitial cystitis Take 1 tablet by mouth daily at bedtime. 30 tablet 5 11/14/2024 Active Start: 08-04-2024 End: 10-31-2024 take 1 tablet by mouth once daily at bedtime amitriptyline (ELAVIL) 100 mg tablet Indications: Chronic interstitial cystitis Take 1 tablet by mouth daily at bedtime. 30 tablet 5 08/04/2024 10/31/2024 Discontinued Start: 07-07-2024 take 2 tablets by mo [facility] at bedtime Amitriptyline 50 mg tablet Active 100 mg PO AT BEDTIME July 07, 2024 10:27am Start: 06-09-2024 End: 08-04-2024 take 1 tablet by mouth once daily at bedtime amitriptyline (ELAVIL) 25 mg tablet Take 1 tablet by mouth daily at bedtime. Take in addition to your 75mg tablets so your full dose is 100mg. 30 tablet 1 06/09/2024 08/04/2024 Discontinued Start: 06-02-2024 End: 07-07-2024 Amitriptyline 50 mg tablet Discontinued 75 mg PO AT BEDTIME June 02, 2024 1:00am July 07, 2024 10:28am Start: 05-23-2024 End: 08-04-2024 take 1 tablet by mouth once daily at bedtime amitriptyline (ELAVIL) 75 mg tablet Indications: Chronic interstitial cystitis Take 1 tablet by mouth daily at bedtime. 90 tablet 1 05/23/2024 08/04/2024 Discontinued Start: 04-17-2024 End: 05-23-2024 take 5 tablets by mouth once daily at bedtime amitriptyline (ELAVIL) 10 mg tablet Take 50 mg by mouth daily at bedtime. 04/17/2024 05/23/2024 Discontinued (Dosage adjustment) Start: 03-04-2024 End: 03-09-2024 take 50 mg by mouth once daily 50 mg, Oral, Nightly, F irst dose on 03/04/24 at 2100 Start: 03-04-2024 End: 2024 take 1 tablet by mouth at bedtime Amitriptyline 10 mg tablet Discontinued 10 mg PO AT BEDTIME March 04, 2024 12:00am 2024 8:42am Start: 01-31-2024 End: 03-16-2024 take 1 tablet by mouth once daily at bedtime amitriptyline (ELAVIL) 50 mg tablet Indications: Chronic interstitial cystitis Take 1 tablet by mouth daily at bedtime. 30 tablet 1 01/31/2024 03/16/2024 Discontinued Start: 01-11-2024 End: 01-31-2024 take 1 tablet by mouth once daily at bedtime amitriptyline (ELAVIL) 10 mg tablet Take 1 tablet by mouth daily at bedtime. And as directed 60 tablet 2 01/11/2024 01/31/2024 Discontinued amitriptyline (E lavil) 75 MG tablet Take 75 mg by mouth Nightly. AVS from 03/03 from [facility] with Dr. Benitez states: discontinue the elavil for now - we will taper it down. Take 50 mg 4-5 days, then take 25 mg for 4-5 days then stop. Active amoxicillin 875 mg / clavulanate 125 mg oral tablet (3 sources) Penicillin-class Antibacterial Start: 08-12-2022 End: 08-19-2022 take 1 tablet by mouth twice daily amoxicillin-clavulanic acid (AUGMENTIN) 875-125 mg per tablet Take 1 tablet by mouth twice daily for 7 days. 14 tablet 0 08/12/2022 08/19/2022 Active Comment on above: Take 1 tablet by mouth twice daily for 7 days. Apoaequorin (Prevagen) 10 MG capsule (13 sources) take 1 capsule by mouth once daily Apoaequorin (Prevagen) 10 MG capsule Take 10 mg by mouth daily. Active take 1 capsule by mouth once jet ly Apoaequorin (Prevagen) 10 MG capsule Take 10 mg by mouth daily. Suspended carbidopa 25 mg oral tablet (20 sources) Aromatic Amino Acid Decarboxylation Inhibitor Start: 08-16-2024 End: 08-16-2025 take 1 tablet by mouth three times daily carbidopa (LODOSYN) 25 mg tab Take 1 tablet by mouth three times a day. 270 tablet 3 10/17/2024 Active carbidopa 25 mg / levodopa 100 mg oral tablet (20 sources) Aromatic Amino Acid Decarboxylation Inhibitor, Aromatic Amino Acid Start: 10-17-2024 take 1 tablet by mouth three times daily carbidopa-levodop a (SINEMET 25-100) 25-100 mg per tablet Take 1 tablet by mouth three times a day. 270 tablet 3 10/17/2024 Active Start: 10-11-2024 Carbidopa-Levo dopa (Sinemet) 25-100 mg tablet Active 1 {tbl} PO THREE TIMES A DAY October 11, 2024 12:00am Start: 08-03-2024 End: 10-02-2024 take 0.5 tablet by mouth three times daily, then take 1 tablet by mouth three times daily, then take 1 tablet by mouth three times daily carbidopa-levodopa (SINEMET) 25-100 mg per tablet Take 0.5 tablets by mouth three times a day for 30 days, THEN 1 tablet three times a day. Then refill 1 tablet three times daily. 90 tablet 11 08/03/2024 08/31/2024 Discontinued cholecalciferol 0.025 mg oral tablet (5 sources) Vitamin D Start: 06-28-2018 take 1 tablet by mouth twice daily Cholecalciferol (Vitamin D3) (Vitamin D3) 1,000 UNIT tablet Active 1000 U PO TWICE A DAY June 28, 2018 1:00am cosyntropin 0.25 mg injection (CORTROSYN) (20 sources) Start: 05-18-2024 0.25 mg, INTRAMUSCULAR, NEEDED, Starting on Wed05/18/24 at 1153, Until Discontinued, ACTH stimulation test, Intramuscular administration: Reconstitute 0.25 mg with 1 mL of NS Intravenous administration: Reconstitute 0.25 mg with 1 mL of NS and further dilute in NS to a total volume of 2 to 5 mL Start: 05-18-2024 cosyntropin 0. 25 mg injection (CORTROSYN) doxycycline hyclate 100 mg oral tablet (1 [...] mg/ml vaginal cream (20 sources) Estrogen Start: 10-31-2024 End: 05-13-2025 estradiol (ESTRACE) 0.01 % (0.1 mg/gram) vaginal cream Indications: Genitourinary syndrome of menopause Use 1 g vaginally daily at bedtime for 14 days, THEN 1 g two times a week. 64 g 10/31/2024 05/13/2025 Active Start: 04-01-2022 End: 10-26-2024 Estradiol (Estrace) 0.01 % ( 0.1 mg/gram) cream Discontinued 1 g VAGINAL TWICE A WEEK 2024 1:00am October 11, 2024 10:10am Start: 11-26-2021 End: 03-31-2022 estradiol (ESTRACE) 0.01 % ( 0.1 mg/gram) vaginal cream Use 3 g vaginally once daily. 42.5 g 1 11/26/2021 03/31/2022 Discontinued Comment on above: Use 3 g vaginally on ce daily. Use 1 g vaginally tw o times a week. fludrocortisone acetate 0.1 mg oral tablet (20 sources) Start: 12-13-2024 End: 09-09-2025 fludrocortisone (FLORINEF) 0.1 mg tablet Indications: Parkinson's disease, unspecified whether dyskinesia present, unspecified whether manifestations fluctuate (HCC) , Orthostatic hypotension Take 2 tablets in the morning and one table the evening. 270 tablet 12/27/2024 Active Start: 11-29-2024 End: 02-27-2025 take 1 tablet by mouth once daily Fludrocortisone 0.1 mg tablet Discontinued 0.2 mg PO DAILY December 19, 2024 12:00am December 29, 2024 7:59am Start: 06-02-2024 End: 07-07-2024 take 1 tablet by mouth once daily Fludrocortisone 0.1 mg tablet Discontinued 0.1 mg PO DAILY June 02, 2024 1:00am July 07, 2024 10:27am Start: 04-08-2024 End: 08-31-2024 take 1 tablet by mouth every twelve hours fludrocortisone (FLORINEF) 0.1 mg tablet Take 1 tablet by mouth every 12 hours. 04/08/2024 08/31/2024 Discontinued (Discontinued by another Health Care Provider) Start: 03-09-2024 End: 04-08-2024 fludrocortisone (FLORINEF) 0 .1 mg tablet Take 0.1 mg by mouth. 03/09/2024 04/08/2024 Start: 06-28-2018 End: 04-08-2024 take 1 tablet by mouth twice daily Fludrocortisone 0.1 MG tablet Discontinued 0.1 mg PO TWICE A DAY June 28, 2018 1:00am March 04, 2024 1:05am L.acidophilus-L.rhamnosus (PROBIOTIC) 15 billion cell capsule (20 sources) take 1 capsule by mouth once daily L.acidophilus-L.rhamnosus (PROBIOTIC) 15 billion cell capsule Take 1 capsule by mouth once daily. Active take 1 capsule by mo uth once daily L.acidophilus-L.rhamnosus (PROBIOTIC) 15 billion cell capsule Take 1 capsule by mouth once daily. 0 Active Comment on above: Take 1 capsule by mo uth once daily. lactobacillus acidophilus 1.5 mg oral capsule (6 sources) Start: 06-02-2024 Lactobacillus Acidophilus (Probiotic Acidophilus) 250 million cell capsule Active 500 NMA PO DAILY June 02, 2024 1:00am Start: 03-13-2019 End: 12-16-2020 take 1 capsule by mouth once daily Lactobacillus acidophilus (FLORAJEN) 460 mg (20 billion cell) cap Indications: Oral thrush Take 1 capsule by mouth once daily. 90 capsule 3 03/13/2019 12/16/2020 Discontinued levothyroxine sodium 0.1 mg oral tablet (20 sources) l-Thyroxine Start: 2024 take 1 capsule by mouth once daily Levothyroxine 100 mcg capsule Active 100 ug PO daily 2024 1:00am Start: 06-04-2020 End: 06-20-2025 take 1 tablet by mouth once daily levothyroxine (SYNTHROID) 100 mcg tablet Indications: Hypothyroidism, unspecified type Take 1 tablet by mouth once daily. Take on empty stomach 90 tablet 3 06/20/2024 06/20/2025 Active Start: 06-28-2018 End: 2024 take 1 tablet by mouth once daily Levothyroxine 75 MCG tablet Discontinued 75 ug PO DAILY June 28, 2018 1:00am 2024 8:41am Comment on above: Take 1 tablet by bradley once daily. Take on empty stomach multivit-min/iron/foli c acid/K (MULTI-DAY PLUS MINERALS ORAL) (20 sources) take 1 capsule by mouth once daily multivit-min/iron/fol ic acid/K (MULTI-DAY PLUS MINERALS ORAL) Take 1 capsule by mouth once daily. Active take 1 capsule by mouth once jet ly multivit-min/iron/folic acid/K (MULTI-DAY PLUS MINERALS ORAL) Take 1 capsule by mouth once daily. 0 Active Comment on above: Take 1 capsule by mo [facility] once daily. Multivitamin (Daily Multi-Vitamin) tablet (3 sources) Start: 5 Multivitamin (Daily Multi-Vitamin) tablet Active 1 {tbl} PO DAILY December 19, 2024 12:00am mycophenolate mofetil 500 mg oral tablet (20 sources) Start: 4 End: 4 take 1000 mg by mouth once daily in the morning 1,000 mg, Oral, Every morning, First dose (after last reorder) on 03/05/24 at 0900, On hold since 03/04/2024 at 1835 until manually unheld Start: 03-04-2024 End: 03-09-2024 take 500 mg by mouth once daily in the evening 500 mg, Oral, Every evening, First dose on 03/04/24 at 1800, On hold since 03/04/2024 at 1835 until manually unheld Start: 03-04-2024 End: 10-11-2024 take 1 tablet by mouth twice daily mycophenolate Mofetil (CELLCEPT) 500 mg tablet Indications: NSIP (nonspecific interstitial pneumonitis) ([facility]) Take 1 tablet by mouth two times a day. 60 tablet 5 09/22/2024 Active Start: 05-10-2023 End: 05-22-2024 take 2 tablets by mouth once daily Mycophenolate Mofetil (Cellcept) 500 mg tablet Discontinued 1000 mg PO DAILY March 04, 2024 12:00am 2024 8:42am Start: 04-17-2022 End: 06-20-2024 mycophenolate Mofetil (CELLC EPT) 500 mg tablet Take 2 in am and one in pm 270 tablet 3 05/22/2024 06/20/2024 Discontinued (Adjust Sig - Block E-Cancel) Start: 07-22-2021 End: 04-17-2022 take 1 tablet [...] 2 in am and one in pm nitrofurantoin, macrocrystals 25 mg / nitrofurantoin, monohydrate 75 mg oral capsule (11 sources) Nitrofuran Antibacterial Start: 08-12-19 End: 08-19-19 take 1 capsule by mouth twice daily nitrofurantoin monohydrate and macrocrystal (MACROBID) 100 mg capsule Take 1 capsule by mouth two times a day for 7 days. 14 capsule 08/11/2024 08/18/2024 Active Start: 04-14-2024 End: 04-21-2024 take 1 capsule by mouth twice daily at mealtime nitrofurantoin monohydrate and macrocrystal (MACROBID) 100 mg capsule Indications: Urinary tract infection with hematuria, site unspecified Take 1 capsule by mouth two times a day with meals for 7 days. 14 capsule 04/14/2024 04/21/2024 Active Start: 11-24-2023 End: 11-29-2023 take 1 capsule by mouth twice daily [...] Comment on above: Take 1 capsule by [facility] twice daily for 7 days. omeprazole 20 mg delayed release oral capsule (17 sources) Proton Pump Inhibitor Start: 0 End: take 1 capsule by mouth once daily before breakfast omeprazole (PRILOSEC) 20 mg capsule Indications: Nausea , Epigastric pain Take 1 capsule by mouth daily before breakfast. 1/2 hr before meal. 90 capsule 3 08/06/2021 12/19/2021 Discontinued Start: 12-16-2017 End: 06-05-2018 take 1 capsule by mouth every other day Omeprazole 20 MG capsule Discontinued 20 mg PO EVERY OTHER DAY December 16, 2017 12:00am June 05, 2018 10:01am Comment on above: Take 1 capsule by mo [facility] daily before breakfast. 1/2 hr before meal. ondansetron 4 mg disintegrating oral tablet (20 sources) Serotonin-3 Receptor Antagonist Start: 04-06-20 take 1 tablet by mouth every eight hours as needed for nausea and vomiting Ondansetron 4 mg tablet,disintegrati ng Active 4 mg PO Q8H as needed for nausea and vomiting 2024 1:00am Start: 03-23-2024 End: 03-23-2024 4 mg, IntraVENous, Once PRN, nausea, Starting on Varsha 03/23/24 at 1633, For 1 dose, Recovery (only), Initial antiemetic therapy. Start: 03-03-2024 End: 11-29-2024 take 1 tablet by mouth every eight hours as needed ondansetron (ZOFRAN) 4 mg tablet Take 1 tablet by mouth every 8 hours as needed for nausea/vomiting. 90 tablet 11 03/03/2024 11/29/2024 Discontinued pantoprazole 20 mg delayed release oral tablet (19 sources) Proton Pump Inhibitor Start: 10-11-2024 take 1 tablet by mouth once daily pantoprazole DR (PROTONIX) 20 mg tablet Take 1 tablet by mouth once daily. 10/11/2024 Active Start: 03-05-2024 End: 03-07-2024 take 40 mg by mouth twice daily before mealtime 40 mg, Oral, 2 times daily before meals, First dose on 03/05/24 at 0700, Do not crush, chew, or split. phenazopyridine hydrochloride 200 mg delayed release oral tablet (10 sources) Start: 03-23-2024 End: 03-28-2024 take 1 tablet by mouth three times daily in the evening phenazopyridine (Pyridium) 200 MG tablet Take 1 tablet (200 mg) by mouth 3 times daily for 5 days. 15 tablet 03/23/2024 5:22 PM EST 03/23/2024 03/28/2024 Active Start: 11-05-2021 End: 12-19-2021 take 1 tablet by mouth every eight hours as needed phenazopyridine (PYRIDIUM) 200 mg tablet Take 1 tablet by mouth three times daily as needed. 9 tablet 0 11/05/2021 12/19/2021 Discontinued Comment on above: Take 1 tablet by bradley three times daily as needed. plecanatide 3 mg oral tablet (9 sources) Start: 11-22-19 take 1 tablet by mouth once daily TRULANCE 3 mg tablet Take 1 tablet by mouth once daily. 11/21/2024 Active polyethylene glycol 3350 202870 mg / potassium chloride 2970 mg / sodium bicarbonate 6740 mg / sodium chloride 5860 mg / sodium sulfate 77798 mg powder for oral solution (2 sources) Osmotic Laxative Start: 12-30-19 25 Peg 3350-Electrolytes (Golytely) 236-22.74-6.74 -5.86 gram recon soln Active 240 mL PO Q10M 4000 0 December 29, 2024 12:00am until fecal effluent is clear sulfamethoxazole 400 mg / trimethoprim 80 mg oral tablet (11 sources) Dihydrofolate Reductase Inhibitor Antibacterial, Sulfonamide Antimicrobial Start: 04-10-20 End: 04-13-20 take 1 tablet by mouth twice daily sulfamethoxazole-t rimethoprim (BACTRIM) 400-80 mg per tablet Indications: Urinary tract infection with hematuria, site unspecified Take 1 tablet by mouth two times a day for 3 days. 6 tablet 04/10/2024 04/13/2024 Active Start: 03-23-2024 End: 03-26-2024 take 1 tablet by mouth once daily in the evening sulfamethoxazole-trimethoprim (Bactrim D S) 800-160 MG tablet Take 1 tablet by mouth daily for 3 days. 3 tablet 03/23/2024 5:22 PM EST 03/23/2024 03/26/2024 Active Start: 03-09-2024 End: 03-15-2024 take 1 tablet by mouth twice daily sulfamethoxazole-trimethoprim (Bactrim D S) 800-160 MG tablet Take 1 tablet by mouth 2 times daily for 6 days. 12 tablet 03/09/2024 03/15/2024 Active Start: 09-02-2023 End: 09-05-2023 take 1 tablet by mouth twice daily sulfamethoxazole-trimethoprim (BACTRIM D S) 800-160 mg per tablet Indications: Urinary frequency [...] 1 tablet by bradley twice daily for 3 days. Take 1 tablet by bradley twice daily for 5 days. Take 1 tablet by bradley twice daily for 7 days. Take 1 tablet by bradley two times a day for 3 days. Completed/Discontinued Medications Medication Drug Class(es) Dates Sig (Normalized) Sig (Original) acetaminophen 500 mg oral tablet (20 sources) Start: 03-23-2024 End: 03-23-2024 1,000 mg, Oral, Once, On Varsha 03/23/24 at 1130, For 1 dose, Preprocedure, Administer 60 minutes prior to surgery. Start: 03-04-2024 End: 03-09-2024 take 1 tablet by mouth every six hours as needed for pain and fever acetaminophen (Tylenol) tablet 650 mg End: 12-22-2022 acetaminophen (TYLENOL) 325 mg cap Take by mouth as needed. 12/22/2022 Discontinued Comment on above: Take by mouth as nee ded. ALPRAZolam 0.25 mg disintegrating oral tablet (2 sources) Benzodiazepine Start: 03-23-20 End: 03-23-20 take 0.25 mg by mouth once as needed for anxiety 0.25 mg, Oral, Once PRN, anxiety, Starting on Varsha 03/23/24 at 1119, For 1 dose, Preprocedure, Please do not administer prior to obtaining consent and/or history and physical. aspirin 81 mg delayed release oral tablet (20 sources) Platelet Aggregation Inhibitor, Nonsteroidal Anti-inflammatory Drug Start: 03-04-20 End: 03-09-20 Start: 06-06-2018 End: 12-22-2022 take 1 tablet by mouth once daily Aspirin 81 MG tablet,chewable Active 81 mg PO DAILY@0800 June 28, 2018 1:00am Comment on above: Take 1 tablet by bradley once daily. Take 81 mg by mouth once daily. biotin 5 mg sublingual tablet (20 sources) Start: 06-02-2024 End: 10-11-2024 take 1 tablet under the tongue once daily Biotin 5,000 mcg tablet, sublingual Discontinued 5000 ug SL DAILY June 02, 2024 1:00am October 11, 2024 10:09am End: 07-31-2024 take 1 tablet by mouth once daily biotin 5 mg tab Take 5 mg by mouth once daily. 07/31/2024 Discontinued (Course of therapy completed) take 1 capsule by mouth once bio tin 5000 MCG capsule Take 5,000 mcg by mouth daily. OTC per patient Active onabotulinumtoxina 100 unt injection (18 sources) Acetylcholine Release Inhibitor Start: 12-01-2023 End: 12-01-2023 onabotulinum toxin type A 200 Units injection (BOTOX) Start: 12-01-2023 End: 12-01-2023 onabotulinum toxin type A 20 0 Units injection (BOTOX) Start: 11-01-2023 End: 12-01-2023 onabotulinum toxin type A 20 0 Units injection (BOTOX) Start: 10-20-2023 End: 11-19-2023 onabotulinum toxin type A 10 0 Units injection (BOTOX) calcium carbonate 1250 mg / cholecalciferol 200 unt oral tablet (20 sources) Vitamin D Start: 03-04-2024 End: 03-09-2024 take 1 tablet by mouth twice daily 1 tablet, Oral, 2 times daily, First dose on 03/04/24 at 2100 Start: 02-25-2023 take 1 tablet by bradley th in the morning Calcium Carb-Cholecalciferol 600-10 MG-MCG tablet Take 1 tablet by mouth in the morning and 1 tablet in the evening. 02/25/2023 Active Start: 02-23-2022 End: 02-25-2023 take 1 tablet by mouth twice daily calcium carbonate 600 mg-cholecalciferol 400 units 600 mg-10 mcg (400 unit) tab Take 1 tablet by mouth two times a day. 180 tablet 1 02/25/2023 Active Comment on above: Take 1 tablet by bradley th twice daily. Take 1 tablet by bradley th two times a day. Calcium Carbonate-Vitamin D 500-5 MG-MCG tablet (2 sources) End: take 1 tablet by mouth once in the morning Calcium Carbonate-Vitamin D 500-5 MG-MCG tablet Take 5 mg by mouth in the morning and 5 mg in the evening. 03/04/2024 Discontinued calcium chloride 0.0014 meq/ml / potassium chloride 0.004 meq/ml / sodium chloride 0.103 meq/ml / sodium lactate 0.028 meq/ml injectable solution (4 sources) Start: End: take 125 mL intravenously every hour 125 mL/hr, IntraVENous, Continuous, Starting on Varsha 03/23/24 at 1645, Recovery (only) cefTRIAXone (Rocephin) 1,000 mg in sodium chloride 0.9 % 50 mL IVPB Mini-Bag Plus (2 sources) Start: End: 1,000 mg, IntraVENous, at 100 mL/hr, Administer over 30 Minutes, Every 24 hours, First dose on 03/05/24 at 0400, Mini-Bag Plus bag, Suspected Indication (Select all that apply): Urinary Tract Infection cefTRIAXone (Rocephin) 2,000 mg in sodium chloride 0.9 % 50 mL IVPB Mini-Bag Plus (2 sources) Start: End: 2,000 mg, IntraVENous, at 100 mL/hr, Administer over 30 Minutes, Every 24 hours, First dose (after last reorder) on Varsha 03/09/24 at 0600, For 8 days, Mini-Bag Plus bag, Suspected Indication (Select all that apply): Urinary Tract Infection cephalexin 500 mg oral capsule (7 sources) Cephalosporin Antibacterial Start: End: take 1 capsule by mouth three times [...] Comment on above: Take 1 capsule by [facility] twice daily for 7 days. diazePAM 5 mg oral tablet (5 sources) Benzodiazepine Start: End: take 1 tablet by mouth three times daily as needed Diazepam 5 MG tablet Discontinued 5 mg PO THREE TIMES A DAY as needed for Vertigo 20 3 0 June 28, 2018 12:35pm June 30, 2018 1:00am July 01, 2018 1:08am Vertigo Dizziness and giddiness 1 ml diphenhydrAMINE hydrochloride 50 mg/ml cartridge (2 sources) Histamine-1 Receptor Antagonist Start: End: 12.5 mg, IntraVENous, Once PRN, itching, Starting on Varsha 03/23/24 at 1633, For 1 dose, Recovery (only) docusate sodium 100 mg oral capsule (7 sources) Start: 025 End: take 1 capsule by mouth twice daily Docusate Sodium (Colace) 100 mg capsule Discontinued 100 mg PO TWICE A DAY November 08, 2024 12:00am December 19, 2024 12:38pm Start: 01-28-2023 End: 02-27-2023 take 1 capsule by mouth twice daily docusate sodium (COLACE) 100 mg capsule Take 1 capsule by mouth twice daily. 60 capsule 2 01/28/2023 02/27/2023 Active Comment on above: Take 1 capsule by [facility] twice daily. 2 ml fentaNYL 0.05 mg/ml injection (4 sources) Opioid Agonist Start: 03-23-2024 End: 03-23-2024 50 mcg, IntraVENous, Every 5 min PRN, severe pain (7-10), Starting on Varsha 03/23/24 at 1633, For 3 doses, Recovery (only), Phase I and Phase II- Initial therapy for severe pain (7-10). Restricted to a 90 minute time frame starting when the patient can verbally state their pain score. If after 2 doses the pain score does not decrease by more than one point, then call the provider. If oral meds are utilized, do not return to initial therapy medications. Start: 03-23-2024 End: 03-23-2024 25 mcg, IntraVENous, Every 5 min PRN, moderate pain (4-6), Starting on Varsha 03/23/24 at 1633, For 3 doses, Recovery (only), Phase I and Phase II- Initial therapy for moderate pain (4-6). Restricted to a 90 minute time frame starting when the patient can verbally state their pain score. If after 2 doses the pain score does not decrease by more than one point, then call the provider. If oral meds are utilized, do not return to initial therapy medications. fluconazole 200 mg oral tablet (20 sources) Azole Antifungal Start: 03-07-2024 End: 06-02-2024 take 1 tablet by mouth once daily Fluconazole 200 mg tablet Discontinued 200 mg PO daily 14 14 2 2024 1:00am June 02, 2024 1:07pm Start: 09-09-2023 End: 09-09-2023 take 1 tablet by mouth once fluconazole [...] above: Take 1 tablet by bradley once daily for 14 days. Geriatric Weinmktg-Xnkp-Alur (Complete Senior) 1 EACH tablet (5 sources) Start: 06-28-2018 End: 12-19-2024 take 1 tablet by mouth once daily Geriatric Ljeegjen-Wtva-Kiqe (Complete Senior) 1 EACH tablet Discontinued 1 NMA PO DAILY June 28, 2018 1:00am December 19, 2024 12:39pm Start: 06-28-2018 take 1 tablet by bradley th once daily Geriatric Jkurmgvw-Cqma-Xxqh (Complete Senior) 1 EACH tablet Active 1 NMA PO DAILY June 28, 2018 1:00am 0.5 ml heparin sodium, porcine 13785 unt/ml prefilled syringe (2 sources) Unfractionated Heparin, Anti-coagulant Start: 03-04-2024 End: 03-09-2024 inject 1 dose by subcutaneous injection three times daily 5,000 Units, SubCUTAneous, Every 8 hours scheduled (3 times per day), First dose on 03/04/24 at 2200 hydrOXYzine hydrochloride 25 mg oral tablet (4 sources) Antihistamine Start: 10-31-2024 End: 11-14-2024 take 1 tablet by mouth once daily at bedtime hydrOXYzine HCl (ATARAX) 25 mg tablet Indications: Chronic interstitial cystitis Take 1 tablet by mouth daily at bedtime. 30 tablet 11 10/31/2024 11/14/2024 Discontinued ibuprofen 400 mg oral tablet (5 sources) Nonsteroidal Anti-inflammatory Drug Start: 12-26-2017 End: 06-05-2018 take 1 tablet by mouth every four hours as needed for pain Ibuprofen 400 MG tablet Discontinued 400 mg PO EVERY 4 HOURS NEEDED as needed for Mild Pain (-07/24) 0 December 26, 2017 12:00am June 05, 2018 10:01am iv contrast (will be provided with radiology [...] in the CT contrast administration guidelines link. labetalol (Normodyne,Trandate) injection 5 mg (2 sources) Start: 03-23-2024 End: 03-23-2024 labetalol (Normodyne,Trandate) injection 5 mg lidocaine hydrochloride 0.02 mg/mg topical gel (3 sources) Antiarrhythmic, Amide Local Anesthetic Start: 12-01-2023 End: 12-01-2023 lidocaine urojet 2 % 6 mL topical gel (GLYDO) Start: 12-01-2023 End: 12-01-2023 lidocaine urojet 2 % 6 mL to pical gel (GLYDO) Start: 01-15-2023 End: 01-15-2023 lidocaine 10 mg/mL (1 %) 600 mg injection (XYLOCAINE) linaclotide 0.072 mg oral capsule (6 sources) Guanylate Cyclase-C Agonist Start: 11-08-2024 End: 11-29-2024 take 1 capsule by mouth once daily in the morning Linaclotide (Linzess) 72 mcg capsule Discontinued 72 ug PO EVERY MORNING 30 November 08, 2024 12:00am November 21, 2024 11:55am 1 ml LORazepam 2 mg/ml injection (2 sources) Benzodiazepine Start: 03-06-2024 End: 03-06-2024 0.5 mg, IntraVENous, Once PRN Procedure, anxiety, Starting on 03/06/24 at 1601, For 1 dose, For IV doses dilute dose with 1ml NS. melatonin 12 mg oral tablet (20 sources) Start: 03-16-2024 End: 05-30-2024 take 2 tablets by mouth once daily at bedtime melatonin 12 mg tab Take 2 tablets by mouth daily at bedtime. 03/16/2024 05/30/2024 Discontinued Start: 03-04-2024 End: 04-08-2024 take 1 tablet by mouth once daily melatonin 3 MG tablet Take 1 tablet (3 mg) by mouth Nightly. 30 tablet 03/09/2024 04/08/2024 Active methylPREDNISolone (3 sources) Corticosteroid Start: 07-31-2024 End: 08-06-2024 methylPREDNISolone (MEDROL, ASHLEE,) 4 mg Dose-Pack Indications: Myalgia , Costochondritis , Pain in both upper arms Follow dosing instructions, take with food. 21 tablet 07/31/2024 08/06/2024 Start: 07-31-2024 End: 08-06-2024 methylPREDNISolone (MEDROL, ASHLEE,) 4 mg Dose-Pack Indications: Myalgia , Costochondritis , Pain in both upper arms Follow dosing instructions, take with food. 21 tablet 07/31/2024 08/06/2024 Active metoclopramide 5 mg oral tablet (20 sources) Dopamine-2 Receptor Antagonist Start: 07-22-2021 End: 03-03-2024 take 1 tablet by mouth three times daily metoclopramide HCl (REGLAN) 5 mg tablet Take 1 tablet by mouth three times a day. 90 tablet 5 08/09/2023 03/03/2024 Discontinued Comment on above: Take 1 tablet by bradley th three times daily. Take 1 tablet by bradley th three times a day. 24 hr mirabegron 50 mg extended release oral tablet (20 sources) beta3-Adrenergic Agonist Start: 10-22-2021 End: 04-17-2022 take 1 tablet by mouth once daily MYRBETRIQ 50 mg Tb24 Indications: Overactive bladder Take 1 tablet by mouth once daily. 30 tablet 11 11/26/2021 04/17/2022 Discontinued Comment on above: Take 50 mg by mouth once daily. Take 1 tablet by bradley th once daily. multivitamins(DAILY MULTIVITAMIN TAB) (20 sources) Start: 01-18-2009 End: 12-22-2022 multivitamins(DAILY MULTIVITAMIN TAB) Take one(1) tablet daily. 0 01/18/2009 12/22/2022 Discontinued Start: 01-18-2009 multivitamins( DAILY MULTIVITAMIN TAB) Take one(1) tablet daily. 0 01/18/2009 Active Comment on above: Take one(1) tablet d aily. 1 ml naloxone hydrochloride 0.4 mg/ml injection (2 sources) Opioid Antagonist Start: End: 10-24-202 4 0.4 mg, IntraVENous, Every 5 min PRN, opioid reversal, respiratory depression, Starting on 03/05/24 at 1659, +++ For RR nystatin [id number] unt/ml oral suspension (20 sources) Polyene Antifungal Start: 2 End: 3 take 5 mL by mouth four times [...] tablet (4 sources) Cholinergic Muscarinic Antagonist Start: End: take 1 tablet by mouth once daily oxybutynin ER (DITROPAN XL) 10 mg 24 hr tablet Indications: Overactive bladder Take 1 tablet by mouth once daily. 90 tablet 3 07/02/2020 08/12/2021 Discontinued (Course of therapy completed) Comment on above: Take 1 tablet by bradley th once daily. pantoprazole (ProtoNix) 40 mg in sodium chloride (PF) 0.9 % 10 mL injection (2 sources) Start: End: take 40 mg intravenously every twelve hours 40 mg, IntraVENous, Administer over 2 Minutes, Every 12 hours, First dose on Wed03/07/24 at 1600, Reconstitute with 10 ml NS. Vial expires 2 hrs after reconstitution. polyethylene glycol 3350 87617 mg powder for oral solution (5 sources) Osmotic Laxative Start: End: take 17 g by mouth every twenty-four hours as needed for constipation 17 g, Oral, Daily PRN, constipation, Starting on 03/04/24 at 1428, 1st line for treatment of constipation - give scheduled if no bowel movement in past 24 hours. Start: 01-28-2023 End: 02-27-2023 polyethylene glycol 3350 (TN RALAX) 17 gram/dose powder Take 17 g by mouth once daily. Dissolve dose in 4 - 8 ounces of liquid and take as directed. 476 g 2 01/28/2023 02/27/2023 Active Comment on above: Take 17 g by mouth o nce daily. Dissolve dose in 4 - 8 ounces of liquid and take as directed. microencapsulated potassium chloride 20 meq extended release oral tablet (5 sources) Start: 06-28-19 End: 03-04-20 Potassium Chloride (K-Dur) 20 MEQ tablet Discontinued 20 meq PO TWICE A DAY June 28, 2018 1:00am March 04, 2024 1:05am predniSONE 2.5 mg oral tablet (20 sources) Start: 03-04-20 End: 03-09-20 take 5 mg by mouth once daily 5 mg, Oral, Daily, First dose on 03/04/24 at 1615 Start: 12-22-2022 End: 2024 take 1 tablet by mouth once daily Prednisone 5 mg tablet Discontinued 5 mg PO DAILY March 04, 2024 12:00am 2024 8:41am Start: 02-16-2022 End: 10-30-2022 predniSONE (DELTASONE) 20 [...] then back to 10 mg a day PREVAGEN (5 sources) Start: End: PREVAGEN Discontinued 1 NMA PO DAILY June 02, 2024 1:00am October 11, 2024 10:10am 1 ml promethazine hydrochloride 25 mg/ml injection (2 sources) Phenothiazine Start: End: inject 6.25 mg by intramuscular injection every six hours as needed for nausea and vomiting 6.25 mg, IntraMUSCular, Every 6 hours PRN, nausea, vomiting, Starting on Wed03/07/24 at 1528, Only to be given as IM injection. propranolol hydrochloride 20 mg oral tablet (20 sources) beta-Adrenergic Eladio Start: End: take 1 tablet by mouth twice daily propranolol (INDERAL) 20 mg tablet Indications: Tremor Take 1 tablet by mouth two times a day. 60 tablet 5 11/11/2023 03/16/2024 Discontinued (Side Effects) Start: 10-14-2023 End: 04-11-2024 take 1 tablet by mouth twice daily propranolol (INDERAL) 10 mg tablet Indications: Tremor Take 1 tablet by mouth two times a day. 60 tablet 5 10/14/2023 04/11/2024 Active sodium bicarbonate 150 mEq in dextrose 5 % 1,000 mL infusion (2 sources) Start: 03-07-2024 End: 03-08-2024 take 100 mL intravenously every hour 100 mL/hr, IntraVENous, Continuous, Starting on Wed03/07/24 at 1530, For 20 hours 5 ml sodium chloride 9 mg/ml injection (20 sources) Start: 03-23-2024 End: 03-23-2024 10 mL, IntraVENous, Every 12 hours scheduled (2 times per day), First dose on Varsha 03/23/24 at 2100, Recovery (only) Start: 03-23-2024 End: 03-23-2024 10 mL, IntraVENous, Every 12 hours scheduled (2 times per day), First dose on Varsha 03/23/24 at 2100, Recovery (only) Start: 03-23-2024 End: 03-23-2024 500 mL, IntraVENous, at 1,00 0 mL/hr, Administer over 0.5 Hours, PRN, Anti-nausea, Starting on Varsha 03/23/24 at 1633, Recovery (only), Indications: Anti-nausea Start: 03-23-2024 End: 03-23-2024 take 100 mL intravenously every hour as needed, then take 20 mL intravenously every hour as needed 5-250 mL/hr, IntraVENous, PRN, if patient receiving piggyback infusions and maintenance fluids are not ordered OR KVO fluids to protect IV site / prevent frequent line interruptions/ long duration, Starting on Varsha 03/23/24 at 1633, Recovery (only), For piggyback infusion, administer at same rate as piggyback for a total of 25 mL. Enter 25 mL into dose field and piggyback rate into rate field of order. If piggyback is infusing at a rate less than 100 mL/hr, enter 25 mL into dose field and 100 mL/hr into rate field of order. For KVO fluids, enter rate of 20 mL/hr or less into rate field of order. Start: 03-23-2024 End: 03-23-2024 take 10 mL intravenously once as needed 10 mL, IntraVENous, PRN, line care, Starting on Varsha 03/23/24 at 1633, Recovery (only), After every IV line use Start: 03-23-2024 End: 03-23-2024 take 5-40 mL intravenously every twelve hours 5-40 mL, IntraVENous, Every 12 hours, First dose on Varsha 03/23/24 at 1130, Preprocedure, For Line Patency: Peripheral IV = 5 mL; Midline or Central Line = 10 mL/lumen. If following IV push medication, administer flush at same rate as the IV push. Flush volume is determined by type of infusion therapy being given. For non-viscous solutions use: Peripheral IV = 5 mL Midline or Central Line = 10 mL/lumen For viscous solutions (i.e. blood components, parenteral nutrition, contrast media, or after obtaining blood sample) use: Peripheral IV = 10 mL Midline or Central Line = 20 mL/lumen Start: 03-04-2024 End: 03-09-2024 take 5-40 mL intravenously every twelve hours 5-40 mL, IntraVENous, Every 12 hours, First dose on 03/04/24 at 1445, For Line Patency: Peripheral IV = 5 mL; Midline or Central Line = 10 mL/lumen. If following IV push medication, administer flush at same rate as the IV push. Flush volume is determined by type of infusion therapy being given. For non-viscous solutions use: Peripheral IV = 5 mL Midline or Central Line = 10 mL/lumen For viscous solutions (i.e. blood components, parenteral nutrition, contrast media, or after obtaining blood sample) use: Peripheral IV = 10 mL Midline or Central Line = 20 mL/lumen Start: 03-04-2024 End: 03-09-2024 take 100 mL intravenously every hour as needed, then take 20 mL intravenously every hour as needed 5-250 mL/hr, IntraVENous, PRN, if patient receiving piggyback infusions and maintenance fluids are not ordered OR KVO fluids to protect IV site / prevent frequent line interruptions / long duration, Starting on 03/04/24 at 1428, For piggyback infusion, administer at same rate as piggyback for a total of 25 mL. Enter 25 mL into dose field and piggyback rate into rate field of order. If piggyback is infusing at a rate less than 100 mL/hr, enter 25 mL into dose field and 100 mL/hr into rate field of order. For KVO fluids, enter rate of 20 mL/hr or less into rate field of order. Start: 03-04-2024 End: 03-09-2024 5-40 mL, IntraVENous, PRN, l ine care, After every IV line use, Starting on 03/04/24 at 1428, For Line Patency: Peripheral IV = 5 mL; Midline or Central Line = 10 mL/lumen. If following IV push medication, administer flush at same rate as the IV push. Flush volume is determined by type of infusion therapy being given. For non-viscous solutions use: Peripheral IV = 5 mL Midline or Central Line = 10 mL/lumen For viscous solutions (i.e. blood components, parenteral nutrition, contrast media, or after obtaining blood sample) use: Peripheral IV = 10 mL Midline or Central Line = 20 mL/lumen Start: 06-28-2018 End: 03-04-2024 take 1 tablet by mouth three times daily Sodium Chloride 1 GM tablet Discontinued 1 g PO THREE TIMES A DAY June 28, 2018 1:00am March 04, 2024 1:05am Start: 06-05-2018 End: 06-11-2018 take 1 tablet by mouth three times daily Sodium Chloride 1 GM tablet Discontinued 1 g PO THREE TIMES A DAY 60 0 June 05, 2018 1:00am June 11, 2018 12:14pm sucralfate 1000 mg oral tablet (10 sources) Aluminum Complex Start: 03-04-2024 End: 03-23-2024 sucralfate (Carafate) 1 g tablet Take 1 tablet (1 g) by mouth 4 times daily as needed (as needed 1hr before meals and at bedtime for pain suspected 2/2 esophagitis and possible gastritis) for up to 10 days. 30 tablet 03/09/2024 03/23/2024 Discontinued (Stop taking at discharge) tamsulosin hydrochloride 0.4 mg oral capsule (5 sources) alpha-Adrenergic Eladio Start: 03-23-2024 End: 04-17-2024 tamsulosin (FLOMAX) 0.4 mg 03/23/2024 04/17/2024 Discontinued trospium chloride 20 mg oral tablet (20 sources) Cholinergic Muscarinic Antagonist Start: 10-07-2023 End: 03-16-2024 take 1 tablet by mouth twice daily trospium (SANCTURA) 20 mg tablet Indications: Overactive bladder Take 1 tablet by mouth two times a day. 60 tablet 5 10/07/2023 03/16/2024 Discontinued (Side Effects) Problems Active Problems Problem Classification Problem Date Documented Da te Episodic/Chronic Abdominal pain (19 sources) Epigastric pain; Translations: [Epigastric pain] Onset: 5 Episodic Calculus of urinary tract (19 sources) Kidney stone; Translations: [Calculus of kidney] Onset: 3 Episodic Chronic kidney disease (20 sources) Chronic kidney disease stage 3A ; Translations: [Stage 3a chronic kidney disease (HCC)] Onset: 3 01-12-2023 Chronic Chronic kidney disease (4 sources) Chronic kidney disease; Translations: [Stage 3 chronic kidney disease, unspecified whether stage 3a or 3b CKD (HCC)] Onset: 3 Chronic obstructive pulmonary disease and bronchiectasis (2 sources) Bronchiectasis; Translations: [Bronchiectasis, uncomplicated] Onset: 5 10-26-2024 Chronic Chronic obstructive pulmonary disease and bronchiectasis (1 source) Bronchitis; Translations: [Bronchitis, not specified as acute or chronic] Episodic Diabetes mellitus with complications (1 source) Other specified diabetes mellitus with diabetic chronic kidney disease; Translations: [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, without long-term current use of insulin ([facility])] Onset: 5 Chronic Diabetes mellitus without complication (1 source) Diabetes mellitus without complication; Translations: [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, without long-term current use of insulin ([facility])] Onset: 5 Disorders of lipid metabolism (1 source) Hypertriglyceridemia; Translations: [Pure hyperglyceridemia] 02-02-2024 Chronic Esophageal disorders (20 sources) Esophageal dysmotility; Translations: [Dyskinesia of esophagus] Onset: 8 Resolved: 9 07-31-2020 Chronic Fever of unknown origin (1 source) Fever; Translations: [Fever, unspecified] Episodic Genitourinary congenital anomalies (3 sources) Hydronephrosis; 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] Onset: 3 Chronic Genitourinary symptoms and ill-defined conditions (1 source) Urge incontinence of urine; Translations: [Urge incontinence] 01-15-2023 Chronic Immunity disorders (1 source) Antisynthetase syndrome; 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, 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 Immunizations and screening for infectious disease (7 sources) Vaccination needed; Translations: [Encounter for immunization] Onset: 5 Episodic Menopausal disorders (20 sources) Postmenopausal bleeding; Translations: [Postmenopausal bleeding] Onset: 9 11-25-2018 Chronic Other aftercare (3 sources) Long-term current use of immunosuppressive drug; Translations: [Other alf (current) drug therapy] Episodic Other aftercare (1 source) Post-discharge follow-up; Translations: [Encounter for follow-up examination after completed treatment for conditions other than malignant neoplasm] 03-16-2024 Episodic Other aftercare (3 sources) 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; Translations: [assisted (current) use of systemic steroids] 05-05-2024 Episodic Other aftercare (2 sources) Drug therapy finding; Translations: [On Cellcept therapy] 09-22-2024 Episodic Other bone disease and musculoskeletal deformities (1 source) Steroid-induced osteopenia; Translations: [Other specified disorders of bone density and structure, unspecified site] Episodic Other bone disease and musculoskeletal deformities (1 source) Costal chondritis; Translations: [Chondrocostal junction syndrome [Tietze]] 07-31-2024 Episodic Other circulatory disease (20 sources) Orthostatic hypotension; Translations: [Orthostatic hypotension] Onset: 07-08-2018 Episodic Other circulatory disease (1 source) Low blood pressure; Translations: [Hypotension, unspecified] 03-01-2024 Episodic Other connective tissue disease (2 sources) Pain in right hand; Translations: [Pain in right hand] 06-14-2024 Episodic Other connective tissue disease (1 source) Pain in right thumb; Translations: [Pain in right finger(s)] 07-10-2024 Episodic Other connective tissue disease (1 source) Muscle pain; Translations: [Myalgia, unspecified site] 07-31-2024 Episodic Other connective tissue disease (1 source) Bilateral pain in upper arms; Translations: [Pain in right upper arm] 07-31-2024 Episodic Other diseases of bladder and urethra (20 sources) Overactive bladder; Translations: [Overactive bladder] Onset: Chronic Other diseases of bladder and urethra (1 source) Overactive bladder; Translations: [Overactive bladder] Onset: Chronic Other diseases of kidney and ureters (1 source) Infectious disorder of kidney; Translations: [Renal tubulo-interstitial disease, unspecified] 03-16-2024 Chronic Other diseases of kidney and ureters (2 sources) Acquired obstructive defect of renal pelvis; Translations: [Hydronephrosis with ureteropelvic junction obstruction] Episodic Other diseases of kidney and ureters (2 sources) Abnormal renal function; Translations: [Disorder of kidney and ureter, unspecified] 12-28-2023 Episodic Other diseases of kidney and ureters (20 sources) Hydronephrosis with renal and ureteral calculous obstruction; Translations: [Calculus of ureter] Onset: 4 03-05-2024 Episodic Other endocrine disorders (1 source) Hypocortisolism secondary to another disorder; Translations: [Other adrenocortical insufficiency] 05-05-2024 Chronic Other endocrine disorders (2 sources) Hypoadrenalism; Translations: [Unspecified adrenocortical insufficiency] 05-05-2024 Chronic Other endocrine disorders (1 source) Other adrenocortical insufficiency; Translations: [Secondary adrenal insufficiency (HCC)] Onset: Chronic Other endocrine disorders (1 source) Unspecified adrenocortical insufficiency; Translations: [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 (HCC)] Onset: 4 Chronic Other eye disorders (4 sources) Pain in eye; Translations: [Ocular pain, left eye] 09-11-2024 Episodic Other female genital disorders (1 source) Burning sensation of vagina; Translations: [Unspecified condition associated with female genital organs and menstrual cycle] 09-09-2023 Episodic Other female genital disorders (1 source) Burning sensation of vulva; Translations: [Other specified conditions associated with female genital organs and menstrual cycle] 10-07-2023 Episodic Other gastrointestinal disorders (8 sources) Irritable bowel syndrome characterized by constipation; Translations: [Irritable bowel syndrome with constipation] 11-21-2024 Chronic Other gastrointestinal disorders (2 sources) Irritable bowel syndrome with constipation; Translations: [Irritable bowel syndrome with constipation] Onset: 5 Chronic Other gastrointestinal disorders (1 source) Chronic constipation; Translations: [Other constipation] Episodic Other gastrointestinal disorders (18 sources) Constipation; Translations: [Constipation, unspecified] 10-11-2024 Episodic Other gastrointestinal disorders (3 sources) Constipation, unspecified; Translations: [Constipation, unspecified constipation type] Onset: 5 Episodic Other hereditary and degenerative nervous system conditions (1 source) Essential tremor; Translations: [Essential tremor] Chronic Other hereditary and degenerative nervous system conditions (1 source) Restless legs; Translations: [Restless legs syndrome] 11-16-2024 Chronic Other hereditary and degenerative nervous system conditions (1 source) Restless legs syndrome; Translations: [Restless legs syndrome] Onset: 5 Chronic Other hereditary and degenerative nervous system conditions (3 sources) Tardive dyskinesia; Translations: [Drug induced subacute dyskinesia] 01-13-2024 Episodic Other hereditary and degenerative nervous system conditions (1 source) Neuroleptic-induced tardive dyskinesia; Translations: [Drug induced subacute dyskinesia] 08-03-2024 Episodic Other injuries and conditions due to external causes (5 sources) Injury of head; Translations: [Unspecified injury of head, initial encounter] 09-11-2024 Episodic Other lower respiratory disease (20 sources) Interstitial lung disease; Translations: [Interstitial pulmonary disease, unspecified] Onset: 0 03-26-2020 Chronic Other lower respiratory disease (20 sources) Nonspecific interstitial pneumonia; Translations: [Other specified interstitial pulmonary diseases] Onset: 3 Chronic Other lower respiratory disease (3 sources) Other specified interstitial pulmonary diseases; Translations: [NSIP (nonspecific interstitial pneumonitis) (HCC)] Onset: 3 Chronic Other lower respiratory disease (1 source) Interstitial pulmonary disease, unspecified; Translations: [Interstitial pulmonary disease (HCC)] Onset: 5 Chronic Other lower respiratory disease (1 source) Abnormal findings on diagnostic imaging of lung; Translations: [Other nonspecific abnormal finding of lung field] Episodic Other lower respiratory disease (2 sources) Cough; Translations: [Acute cough] Episodic Other lower respiratory disease (1 source) Cough; Translations: [Acute cough] 08-12-2022 Episodic Other lower respiratory disease (2 sources) Rib pain; Translations: [Pleurodynia] 03-01-2024 Episodic Other nervous system disorders (1 source) Parkinsonism due to drug; Translations: [Other drug induced secondary parkinsonism] 01-13-2024 Chronic Other nervous system disorders (1 source) Other acute postprocedural pain; Translations: [Postoperative pain] Onset: 3 Episodic Other nervous system disorders (3 sources) Tremor; Translations: [Tremor, unspecified] 10-14-2023 Episodic Other nervous system disorders (1 source) History of clinical finding in subject; Translations: [Personal history of other diseases of the nervous system and sense organs] 07-11-2024 Episodic Other non-traumatic joint disorders (1 source) Acute ankle pain; Translations: [Pain in right ankle and joints of right foot] 06-26-2020 Episodic Other non-traumatic joint disorders (4 sources) Hip pain; Translations: [Pain in right hip] 09-11-2024 Episodic Other nutritional; endocrine; and metabolic disorders (20 sources) Obese class I; Translations: [Obesity, unspecified] Onset: 8 Resolved: 9 06-22-2023 Chronic Other nutritional; endocrine; and metabolic disorders (1 source) Obesity, unspecified; Translations: [Obesity, Class I, BMI 30-34.9] Onset: 4 Chronic Other screening for suspected conditions (not mental disorders or infectious disease) (20 sources) Patient encounter status; Translations: [Encounter for screening mammogram for malignant neoplasm of breast] Onset: 5 Resolved: 0 Episodic Other upper respiratory infections (1 source) Chronic sinusitis; Translations: [Chronic sinusitis, unspecified] Chronic Other upper respiratory infections (1 source) Sore throat symptom; Translations: [Acute pharyngitis, unspecified] Episodic Parkinson`s disease (1 source) Parkinson`s disease; Translations: [Parkinson's disease, unspecified whether dyskinesia present, unspecified whether manifestations fluctuate (HCC)] Onset: 5 Prolapse of female genital organs (3 sources) Midline cystocele; Translations: [Cystocele, midline] Chronic Residual codes; unclassified (1 source) REM sleep behavior disorder; Translations: [REM sleep behavior disorder] 11-16-2024 Chronic Residual codes; unclassified (1 source) REM sleep behavior disorder; Translations: [REM sleep behavior disorder] Onset: 5 Chronic Residual codes; unclassified (1 source) History of immunosuppressive therapy; Translations: [Personal history of immunosupression therapy] Episodic Residual codes; unclassified (1 source) Postoperative state; Translations: [Other specified postprocedural states] 02-25-2023 Episodic Residual codes; unclassified (1 source) Presence of neurostimulator; Translations: [Other postprocedural status] 09-02-2023 Episodic Residual codes; unclassified (1 source) Postmenopausal state; Translations: [Asymptomatic menopausal state] 07-11-2024 Episodic Residual codes; unclassified (5 sources) History of insertion of stent into ureter; Translations: [Other postprocedural status] 06-05-2018 Episodic Spondylosis; intervertebral disc disorders; other back problems (4 sources) Acute low back pain; Translations: [Acute right-sided low back pain without sciatica] 09-11-2024 Episodic Thyroid disorders (20 sources) Acquired hypothyroidism; Translations: [Hypothyroidism, unspecified] Onset: 0 03-26-2020 Chronic Unclassified (7 sources) Parkinsonism; Translations: [Parkinsonism, unspecified Parkinsonism type (HCC)] 03-17-2024 Chronic Unclassified (11 sources) Parkinson's disease; Translations: [Parkinson's disease, unspecified whether dyskinesia present, unspecified whether manifestations fluctuate (HCC)] 11-29-2024 Chronic Unclassified (2 sources) Procedure; Translations: [Procedure] Onset: 4 Unclassified (1 source) Parkinsonism, unspecified Parkinsonism type (HCC); Translations: [Parkinsonism, unspecified Parkinsonism type (HCC)] Onset: 5 Unclassified (1 source) On Cellcept therapy; Translations: [On Cellcept therapy] Onset: 5 Unclassified (1 source) Acute right-sided low back pain without sciatica; Translations: [Acute right-sided low back pain without sciatica] Onset: 5 Unclassified (1 source) ACTH elevation Onset: 5 Urinary tract infections (20 sources) Chronic interstitial cystitis; Translations: [Interstitial cystitis (chronic) without hematuria] Onset: 4 01-11-2024 Chronic Viral infection (7 sources) Genital warts; Translations: [Anogenital (venereal) warts] Onset: 5 12-06-2024 Episodic Past or Other Problems Problem Classification Problem Date Documented Da te Episodic/Chronic Administrative/social admission (20 sources) Discharge status; Translations: [Encounter for administrative examinations, unspecified] Onset: 03-25-2020 03-26-2020 Episodic Allergic reactions (20 sources) Urticaria; Translations: [Urticaria, unspecified] Onset: 03-03-2012 Resolved: 10-01-2017 10-01-2017 Episodic Cancer; other and unspecified primary (20 sources) Malignant thymoma; 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] Onset: 02-12-2020 Resolved: 06-22-2023 02-12-2020 Chronic Conditions associated with dizziness or vertigo (20 sources) Dizziness; Translations: [Dizziness and giddiness] Onset: 01-13-2019 01-13-2019 Episodic Diabetes mellitus without complication (3 sources) Increased glucose level; Translations: [Other abnormal glucose] Onset: 01-31-2024 12-28-2023 Episodic Diverticulosis and diverticulitis (20 sources) Diverticular disease; Translations: [Diverticulosis of intestine, part unspecified, without perforation or abscess without bleeding] Onset: 02-06-2010 Resolved: 07-08-2018 07-08-2018 Chronic E Codes: Fall (20 sources) Fall; Translations: [Unspecified fall, initial encounter] Onset: 03-01-2024 03-01-2024 Episodic E Codes: Fall (5 sources) Fall in home 09-11-2024 E Codes: Place of occurrence (1 source) Unspecified place in unspecified non-institutional (private) residence as the place of occurrence of the external cause; Translations: [Fall in home, initial encounter] Onset: 09-28-2024 Episodic Epilepsy; convulsions (1 source) Unspecified convulsions; Translations: [Unspecified convulsions] Onset: 03-29-2024 Episodic Fluid and electrolyte disorders (20 sources) Hyponatremia; Translations: [Hypo-osmolality and hyponatremia] Onset: 06-14-2018 Resolved: 07-09-2018 07-17-2018 Episodic Genitourinary symptoms and ill-defined conditions (20 sources) Urgent desire to urinate; Translations: [Urgency of urination] Onset: 04-10-2024 Episodic Malaise and fatigue (20 sources) Asthenia; Translations: [Weakness] Onset: 06-14-2018 Resolved: 06-19-2018 06-19-2018 Episodic Mycoses (17 sources) Candidiasis of the esophagus; Translations: [Candidal esophagitis] Onset: 06-26-2024 Episodic Nausea and vomiting (3 sources) Nausea; Translations: [Nausea] Onset: 09-22-2024 Episodic Neoplasms of unspecified nature or uncertain [...] Long-term current use of systemic steroid; Translations: [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 manager (current) use of systemic steroids] Onset: 10-30-2022 Episodic Other aftercare (20 sources) Taking high risk medication; Translations: [Other alf (current) drug therapy] Onset: 10-30-2022 Episodic Other aftercare (1 source) 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 manager (current) use of systemic steroids; Translations: [assisted systemic 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] Onset: 05-05-2024 Episodic Other circulatory disease (1 source) Orthostatic hypotension; Translations: [Orthostatic hypotension] Onset: 07-08-2018 Episodic Other circulatory disease (1 source) Hypotension, unspecified; Translations: [Hypotension, unspecified hypotension type] Onset: 03-01-2024 Episodic Other connective tissue disease (20 sources) Calcaneal spur; Translations: [Calcaneal spur, unspecified foot] Onset: 06-03-2010 Resolved: 10-01-2017 10-01-2017 Episodic Other connective tissue disease (1 source) Myalgia, unspecified site; Translations: [Myalgia] Onset: 07-31-2024 Episodic Other connective tissue disease (1 source) Pain in right upper arm; Translations: [Pain in both upper arms] Onset: 07-31-2024 Episodic Other connective tissue disease (1 source) Pain in left upper arm; Translations: [Pain in both upper arms] Onset: 07-31-2024 Episodic Other connective tissue disease (1 source) Pain in right hand; Translations: [Right hand pain] Onset: 06-26-2024 Episodic Other diseases of kidney and ureters (1 source) Disorder of kidney and ureter, unspecified; Translations: [Function kidney decreased] Onset: 01-31-2024 Episodic Other endocrine disorders (20 sources) Syndrome of inappropriate vasopressin secretion; Translations: [Syndrome of inappropriate secretion of antidiuretic hormone] Onset: 07-08-2018 Resolved: 06-22-2023 07-08-2018 Chronic Other eye disorders (1 source) Ocular pain, left eye; Translations: [Orbital pain, left] Onset: 09-11-2024 Episodic Other female genital disorders (20 sources) Dyspareunia; [...] corpus uteri] Onset: 11-25-2018 11-25-2018 Episodic Other fractures (20 sources) Closed fracture of pelvis; Translations: [Unspecified fracture of sacrum, initial encounter for closed fracture] Onset: 05-31-2007 Resolved: 02-06-2010 02-06-2010 Episodic Other fractures (20 sources) Closed fracture thoracic vertebra; Translations: [Unspecified fracture of unspecified thoracic vertebra, initial encounter for closed fracture] Onset: 11-19-2008 Resolved: 02-06-2010 02-06-2010 Episodic Other gastrointestinal disorders (1 source) Dysphagia, unspecified; Translations: [Dysphagia, unspecified] Onset: 06-26-2024 Episodic Other hereditary and degenerative nervous system conditions (1 source) Drug induced subacute dyskinesia; Translations: [Dyskinesia, tardive] Onset: 05-30-2024 Episodic Other injuries and conditions due to external causes (20 sources) Open wound; Translations: [Other injury of unspecified body region, initial encounter] Onset: 06-02-2012 Resolved: 10-01-2017 10-01-2017 Episodic Other injuries and conditions due to external causes (20 sources) At high risk for fall; Translations: [History of falling] Onset: 09-28-2024 09-11-2024 Episodic Other injuries and conditions due to external causes (1 source) History of falling; Translations: [At high risk for falls] Onset: 09-28-2024 Episodic Other injuries and conditions due to external causes (1 source) Unspecified injury of head, initial encounter; Translations: [Injury of head, initial encounter] Onset: 09-11-2024 Episodic Other lower respiratory disease (20 sources) Multiple nodules of lung; Translations: [Other nonspecific abnormal finding of lung field] Onset: 02-12-2020 02-12-2020 Episodic Other lower respiratory disease (1 source) Pleurodynia; Translations: [Rib pain] Onset: 03-01-2024 Episodic Other nervous system disorders (20 sources) Numbness of tongue; Translations: [Anesthesia of skin] Onset: 06-14-2018 07-08-2018 Episodic Other nervous system disorders (20 sources) Acute postoperative pain; Translations: [Other acute postprocedural pain] Onset: 03-25-2020 03-26-2020 Episodic Other nervous system disorders (1 source) Personal history of other diseases of the nervous system and sense organs; Translations: [History of tremor] Onset: 07-10-2024 Episodic Other nervous system disorders (1 source) Tremor, unspecified; Translations: [Tremor] Onset: 01-13-2024 Episodic Other non-traumatic joint disorders (3 sources) Pain in right knee; Translations: [Other acute pain] Onset: 05-24-2024 05-24-2024 Episodic Other non-traumatic joint disorders (1 source) Pain in right hip; Translations: [Acute hip pain, right] Onset: 09-11-2024 Episodic Other non-traumatic joint disorders (1 source) Pain in left knee; Translations: [Acute pain of both knees] Onset: 05-24-2024 Episodic Other nutritional; endocrine; and metabolic disorders (20 sources) Unintentional weight loss; Translations: [Abnormal weight loss] Onset: 02-12-2020 02-12-2020 Episodic Residual codes; unclassified (1 source) Asymptomatic menopausal state; Translations: [Post-menopausal] Onset: 07-10-2024 Episodic Syncope (6 sources) Syncope and collapse; Translations: [Syncope and collapse] Onset: 03-04-2024 03-04-2024 Episodic Unclassified (1 source) Patient encounter status 12-06-2024 Urinary tract infections (10 sources) Acute cystitis; Translations: [Acute cystitis with hematuria] Onset: 03-04-2024 Episodic Results Test Name Value Interpretation Reference Range Facility CNOVon 01-09-2025 CNOV [facility]domen Single View[facility] 2024 [facility] [address] [place] [address] Abdomen Single View MR#: [id number] Acct: [id number] Name: EREN MERCHANT Rep #: [id number] : [id number] F 64 From: Bogdan Ricci MD PCP: Dr. Gonzalo Day MD Status: REG CLI Study: Abdomen Single View Date of Exam: 12/29/24 Exam# [id number] Ordering Dr: Hilary Soto PROCEDURE: ABDOMEN SINGLE VIEW 12/29/2024 REASON FOR EXAM: CONSTIPATATION, IMPACTION TECHNIQUE: ABDOMEN SINGLE VIEW COMPARISON: None. FINDINGS: There is a nonobstructive bowel gas pattern. There is stool noted throughout the colon and in the rectal vault. There are no abnormal soft tissue calcifications or radiopaque foreign bodies. There is a bladder stimulator with the generator in the left buttock. There is mild multilevel degenerative disc disease of the lumbar spine. RAD/Abdomen Single View IMPRESSION: Mild constipation. Other findings as noted. Reading Location: [id number] CC: Dr. Gonzalo Day MD; KAUSHAL Alas Upper Shaper: Signed Normal [facility] Gastroenterology Visit Repor ton 12-29-2024 Gastroenterology Visit Report [facility] [address] [place] [address] OFFICE VISIT Date of Service: 12/29/24 MR#: [id number] Acct: [id number] Name: REEN MERCHANT Rep #: [id number] : [id number] Provider: KAUSHAL Alas Age/Sex: 64/F Location: [email or web address] Status: Signed Intake Vital Signs 12/22/24 12:21 Height 5 ft 5 in Intake Visit Reasons: ABORTED COLONOSCOPY -IMPACTED 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: abd pain Allergies cetirizine (From Rust) Allergy (Intermediate, Verified 12/22/24 12:18) Rash erythromycin base Adverse Reaction (Intermediate, Verified 12/22/24 12:18) Diarrhea azithromycin Adverse Reaction (Mild, Verified 12/22/24 12:18) Diarrhea Medications ???Medication ???Instructions ???Recorded ???Confirmed ???Type aspirin 81 mg chewable tablet 81 mg PO DAILY@0800 06/28/1812/22 History cholecalciferol (vitamin D3) 25 1,000 unit PO BID 06/28/18 5 History mcg (1,000 unit) tablet (Vitamin D3) mycophenolate mofetil 500 mg 500 mg PO BID 03/04/24 12/29/24 Hi story tablet (CellCept) levothyroxine 100 mcg capsule 100 mcg PO QDAY 04/06/24 12/22/24 History ondansetron 4 mg disintegrating 4 mg PO Q8H PRN nausea and vomitin g 04/06/24 12/29/24 History tablet Lactobacillus acidophilus 250 500 mmu cells PO DAILY 06/02/24 History million cell capsule (Probiotic Acidophilus) amitriptyline 50 mg tablet 100 mg PO QHS 07/07/24 12/22/24 Hi story carbidopa 25 mg-levodopa 100 mg 1 tab PO TID 10/11/24 12/22/24 His tory tablet (Sinemet) pantoprazole 20 mg tablet,delayed 20 mg PO QDAY #30 tabs 10/11/24 0 12/29/24 Rx release carbidopa 25 mg tablet 25 mg PO TID 11/08/24 12/22/24 His tory plecanatide 3 mg tablet (Trulance) 3 mg PO QDAY #30 tabs 11/21/24 0 12/29/24 Rx multivitamin (Daily Multi-Vitamin 1 tab PO DAILY 12/19/24 12/22/24 History tablet) fludrocortisone 0.1 mg tablet 0.3 mg PO DAILY 12/29/24 12/29/24 History peg 3350-electrolytes 236 240 ml PO Q10M #4,000 mL 12/29/24 12/29/24 Rx gram-22.74 gram-6.74 gram-5.86 gram solution (Golytely) Have you fallen in the past year?: No PFSH Medical History Kidney stones Thyroid disease Uses wheelchair Back pain Parkinson's disease Orthostatic hypotension History of steroid therapy Wears glasses Post-menopausal Cancer Arthritis History of renal disease DVT (deep venous thrombosis) Easy bruising Syncope Dietary restriction History of diverticulitis Interstitial emphysema of lung Non-smoker History of edema Overactive bladder Intramural leiomyoma of uterus Esophageal dysmotility Abnormal Pap smear of vagina and vaginal HPV Positive P-ANCA titer Hypothyroid Surgical History S/P laparoscopic appendectomy Hx of colonoscopy History of esophagogastroduodenoscopy (EGD) Hx of tubal ligation Hx of bladder repair surgery H/O thymectomy History of spinal fusion History of cholecystectomy History of colon resection Family History Mother Thyroid disorder Hypertension Father Heart disease Hypertension COPD (chronic obstructive pulmonary disease) Social History Smoking Status: Never smoker alcohol intake: current alcohol intake frequency: holidays/special occasions only HPI HPI 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: abd pain Details: EREN MERCHANT, is a 64 F who presents to the office today for follow-up. BGI established March 2024 after [facility] hospitalization for seizure like activity. 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 Pt on Cellcept and prednisone for interstitial lung disease. Fo und to have esophageal thickening on imaging. Underwent EGD showing esophageal candidiasis stated on Diflucan and nystatin. EGD 03.07.24; severe candidiasis w/ no bleeding, LA Grade D acute and erosive esophagitis with no bleeding, gastritis and normal duodenum. with recommendation for f/u in 8 weeks. OV 04.06.25 Pt feeling better on anti fungal medications but since discontinuing it she has had some symptoms. Endorses burning, globus sensation and cough. Start Fluconazole 200 mg daily for 14 days. Scheduled for EGD EGD 06.06.24;- Normal esophagus. Biopsied. - Small hiatal hernia. - Normal second portion of the duodenum. OV 2.21.25 Pt doing well today. Reviewed EGD results Swallowing improved after treatment with fluconazole. Last OV 5..25 Pt having burning in her esophagus for a few weeks now. It does not feel like when she had esophageal candidiasis. She does not take a PPI. Over the past few months pt has been having lower abdominal pain and constipation. She h (more content not included)... Normal [facility] CNOVon 12-27-2024 CNOV [facility] Colonoscopy Reporton 025 Colonoscopy Report [facility] Medical Records Department [address] [place] [address] Colonoscopy Report MR#: [id number] Acct: [id number] Name: EREN MERCHANT Rep #: [id number] : 1960 64 From: Aditya Cota DO PCP: Dr. Gonzalo Day MD Status:[facility] Patient Name: Eern Merchant Procedure Date: 12/22/2024 1:36 PM Date of : 1960 Age: 64 Procedure: Colonoscopy Indications: Screening for colorectal malignant neoplasm Providers: Aditya Cota DO Referring MD: Gonzalo Day Medicines: Monitored Anesthesia Care Patient Profile: This is a 64 year old female. Refer to note in patient chart for documentation of history and physical. Last Colonoscopy: several years ago. Complications: No immediate complications. Procedure: Pre-Anesthesia Assessment: - Prior to the procedure, a History and Physical was performed, and patient medications and allergies were reviewed. The patient is competent. The risks and benefits of the procedure and the sedation options and risks were discussed with the patient. All questions were answered and informed consent was obtained. Patient identification and proposed procedure were verified by the physician in the pre-procedure area. Mental Status Examination: alert and oriented. Airway Examination: normal oropharyngeal airway and neck mobility. Respiratory Examination: clear to auscultation. CV Examination: normal. Prophylactic Antibiotics: The patient does not require prophylactic antibiotics. Prior Anticoagulants: The patient has taken no anticoagulant or antiplatelet agents except for NSAID medication. ASA Grade Assessment: II - A patient with mild systemic disease. After reviewing the risks and benefits, the patient was deemed in satisfactory condition to undergo the procedure. The anesthesia plan was to use monitored anesthesia care (MAC). Immediately prior to administration of medications, the patient was re-assessed for adequacy to receive sedatives. The heart rate, respiratory rate, oxygen saturations, blood pressure, adequacy of pulmonary ventilation, and response to care were monitored throughout the procedure. The physical status of the patient was re-assessed after the procedure. After I obtained informed consent, the scope was passed under direct vision. Throughout the procedure, the patient's blood pressure, pulse, and oxygen saturations were monitored continuously. The Colonoscope was introduced through the anus and advanced to the hepatic flexure. The colonoscopy was performed without difficulty. The patient tolerated the procedure well. The quality of the bowel preparation was 90 percent obscured. Anatomical landmarks were photographed. Scope In: 1:47:21 PM Scope Out: 1:50:41 PM Total Procedure Duration Time 0 hours 3 minutes 20 seconds Findings: The perianal and digital rectal examinations were normal. Copious quantities of semi-liquid semi-solid solid stool was found in the entire colon, precluding visualization. Lavage of the area was performed using copious amounts of sterile water, resulting in incomplete clearance with continued poor visualization. Impression: - Stool in the entire examined colon. - No specimens collected. Recommendation: - Discharge patient to home. - Resume previous diet. - Continue present medications. - Repeat colonoscopy because the bowel preparation was poor. Procedure Code(s): --- Professional --- 81147, 53, Colonoscopy, flexible; diagnostic, including collection of specimen(s) by brushing or washing, when performed (separate procedure) CPT copyright 2021 [employer]. All rights reserved. The codes documented in this report are preliminary and upon drum stock clerk review may be revised to meet current compliance requirements. Aditya Cota DO 12/22/2024 1:55:32 PM This report has been signed electronically. Number of Addenda: 0 Note Initiated On: 12/22/2024 1:36 PM 12/22/24 4675 Date Aditya Bates Signature: Date (if indicated) CC: Dr. Gonzalo Day MD; Aditya Cota DO Date Dictated: 12/22/241335 Date Transcribed: Upper Shaper: RF Signed [facility] MR/OP.PROVATon 12-22-2024 MR/OP.[facility] Medical Records Department [address] [place] [address] Provation Physician Letter MR#: [id number] Acct: [id number] Name: EREN MERCHANT Rep #: [id number] : 1960 64 From: Aditya Cota DO PCP: Dr. Gonzalo Day MD Status:[facility] 12/22/2024 Gonzalo Day Re : Colonoscopy procedure for Eren Merchant Dear Brown This procedure was performed on Sunday, December 22, 2024. My impressions and recommendations are as follows: Impressions : - Stool in the entire examined colon. - No specimens collected. Recommendations : - Discharge patient to home. - Resume previous diet. - Continue present medications. - Repeat colonoscopy because the bowel preparation was poor. My findings are described in the full procedure note, which is enclosed. If I can be of further assistance, please feel free to contact me at . Sincerely, Aditya Cota DO 12/22/2024 1:55:32 PM This report has been signed electronically. 12/22/24 1355 Date Aditya Cota DO Cosigner Signature: Date (if indicated) CC: Dr. Gonzalo Day MD; Aditya Cota DO Date Dictated: 12/22/241335 Date Transcribed: Upper Shaper: RF Signed [facility] MR/POSTOP.ANEon 12-22-2024 MR/POSTOP.ANE [facility] Medical Records Department [address] [place] [address] Anesthesia Postop Eval I 12/22/24 1358 MR#: [id number] Acct: [id number] Name: EREN MERCHANT Rep #: [id number] : 1960 64 From: Ana Pardo CRNA PCP: Dr. Gonzalo Day MD Status:REG [facility] Y Race: C Location: [place] [address] Anesthesia: Postop Eval I Current Vital Signs Temperature: 97.9 F Pulse Rate: 84 Blood Pressure: 123/55 Respiratory Rate: 20 Pulse Ox: 100 Assessment Airway patent: Yes Spontaneous unlabored respirations: Yes nausea: No Vomiting: No Anesthesia Complication: No Fluid Hydration Crystalloid volume administer (ml): 200 Total IV fluid infused: 200 Progress Note Anesthesia document: Postop Eval 1 completed: Yes 12/22/24 1359 Date Ana Sirca KNIFE OPERATOR Cosigner Signature: Date CC: Signed Normal [facility] Basic metabolic 2000 panelon 12-20-2024 Anion gap [Moles/Vol] 10 mmol/L Normal 8-15 [facility] Comment on above: Order Comment: Speci men Type: BLOOD SPECIMENOrdering Facility: [facility] Address: [address] [place] [address] A, [place] [id number] Performed By: #### 2 4321-2 ####[facility] [id number] [place] [address] [place] Calcium [Mass/Vol] 9.9 mg/dL Normal 8.5-10.2 [facility] Comment on above: Order Comment: Speci men Type: BLOOD SPECIMENOrdering Facility: [facility] [place] Address: [address], [place] [address] Performed By: #### 2 4321-2 ####[facility] RAFAEL RAMOSNCLIYumiko [id number] [place] [address] [place] Chloride [Moles/Vol] 103 mmol/L Normal 98-107 [facility] Comment on above: Order Comment: Speci men Type: BLOOD SPECIMENOrdering Facility: [facility] [place] Address: [address], [address], [place] [address] Performed By: #### 2 4321-2 ####[facility]ITALK[facility] [id number] [place] [address] [place] CO2 [Moles/Vol] 23 mmol/L Normal 22-30 [facility] Comment on above: Order Comment: Speci men Type: BLOOD SPECIMENOrdering Facility: [facility] [place] Address: [address] [place] [address] Performed By: #### 2 4321-2 ####[facility] HOSPITALMARNILIA [id number] [place] [address] [place] Creatinine [Mass/Vol] 1.40 mg/dL High 0.58-0.96 [facility] Comment on above: Order Comment: Speci men Type: BLOOD SPECIMENOrdering Facility: [facility] Lara Schultz Address: [address], [address], [place] [address] Performed By: #### 2 4321-2 ####[facility]ITALMARNILIA [id number] [place] [address] [place] eGFRcr SerPlBld CKD-EPI 2020 42 mL/min/1.73m??? Low >=60 [facility] Comment on above: Order Comment: Speci men Type: BLOOD SPECIMENOrdering Facility: [facility] Address: [address] [place] [address] A, [place] [address] Result Comment: Hyun mated Glomerular Filtration Rate [...] reflect actual GFR. Performed By: #### 2 4321-2 ####[facility] [id number] [place] [address] [place] Glucose [Mass/Vol] 104 mg/dL High 74-99 [facility] Comment on above: Order Comment: Speci men Type: BLOOD SPECIMENOrdering Facility: [facility] Address: [address] [place] [address] Result Comment: The [place] [employer] (ADA) provides guidance for cutoff values for fasting glucose and random glucose. The ADA defines fasting as no caloric intake for at least 8 hours. Fasting plasma glucose results between 100 to 125 mg/dL indicate increased risk for diabetes (prediabetes).Fasting plasma glucose results greater than or equal to 126 mg/dL meet the criteria for diagnosis of diabetes. In the absence of unequivocal hyperglycemia, results should be confirmed by repeat testing. In a patient with classic symptoms of hyperglycemia or hyperglycemic crisis, random plasma glucose results greater than or equal to 200 mg/dL meet the criteria for diagnosis of diabetes.Reference: Standards of Medical Care in Diabetes 2016, [place] [employer]. Diabetes Care. 2016.39(Suppl 1). Performed By: #### 2 4321-2 ####[facility] [id number] [place] [address] [place] Potassium [Moles/Vol] 4.2 mmol/L Normal 3.7-5.1 [facility] Comment on above: Order Comment: Speci men Type: BLOOD SPECIMENOrdering Facility: [facility] Address: [address] [place] [address] [place] [address] Performed By: #### 2 4321-2 ####[facility] HOSPITALNCLIYumiko [id number] [place] [address] [place] Sodium [Moles/Vol] 136 mmol/L Normal 136-144 [facility] Comment on above: Order Comment: Speci men Type: BLOOD SPECIMENOrdering Facility: [facility] Address: [address] [place] [address] [place] [address] Performed By: #### 2 4321-2 ####[facility] SYSTEMSHADI [id number] [place] [address] [place] Urea nitrogen [Mass/Vol] 26 mg/dL High 7-21 [facility] Comment on above: Order Comment: Speci men Type: BLOOD SPECIMENOrdering Facility: [facility] Address: [address] [place] [address] [place] [address] Performed By: #### 2 4321-2 ####[facility] HOSPITALNCLIYumiko [id number] [place] [address] [place] XR ABDOMEN 1V SUPINEon 12-20 XR ABDOMEN 1V SUPINE Normal [facility] MR/PAT.ANEon 12-19-2024 MR/PAT.ANE [facility] Medical Records Department [address] [place] [address] PAT - Anesthesia 12/19/24 1652 MR#: [id number] Acct: [id number] Name: EREN MERCHANT Rep #: [id number] : 1960 64 From: Johnathan Ennis MD PCP: Dr. Gonzalo Day MD Status:PRE [facility] [place] Race: C Location: [place] Pre-Assessment Diagnosis/Proposed Procedure Planned Operative Procedure(s): COLONOSCOPY Anesthesia History Anesthesia History - multicultural internship: Anesthesia History - multicultural internship Hx Hospitalization Yes: 03/2024- 7 DAYS, [facility]. 12/19/24 12:42 FALLS, KIDNEY STONES, ETC Any Problems With Anesthesia No 12/19/24 12:42 Cholinesterase deficiency No 12/19/24 12:42 You/Your Family Experience No 12/19/24 12:42 fever (hyperthermia) with Relationship Recent Exposure to Contagious No 06/06/24 14:36 Disease Does patient have nerve No 12/19/24 12:42 stimulator Patient instructed to have device shut off --Does patient have Pacemaker or ICD? When Was Last Pacemaker Check QUESTION #4 FULL TEXT: You/Your Family Experience fever (hyperthermia) with Anesthesia Last Oral Intake Last Oral intake: Last Oral Intake NPO since Meds taken in AM with sips of water? Meds patient instructed to take am of surgery PONV PONV - multicultural internship: PONV - multicultural internship Female Yes 12/19/24 12:42 HX of Motion Sickness No 12/19/24 12:42 HX of N/V After Surgery No 12/19/24 12:42 Non-Smoker Yes 12/19/24 12:42 Duration of Surgery greater No 12/19/24 12:42 than 60 minutes Number of Risk Factors 2 12/19/24 12:42 PONV Score Moderate Risk 12/19/24 12:42 Height Weight Height Weight: Anesthesia: Height Weight Height 5 ft 5 in 06/06/24 14:36 Respiratory Assessment Respiratory Assessment - multicultural internship: Respiratory Tract Infection Hx - 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 Has anyone observed you stop No 12/19/24 12:42 breathing during sleep? STOP Results Negative 12/19/24 12:42 QUESTION #5 FULL TEXT : Do you snore loudly (louder than talking or can be heard through closed doors)? 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 Specify any problems Hx of Preganancy in last 3 No 12/19/24 12:42 Months Nurse Filling Out Transfusion [email or web address] 12/19/24 12:42 Questions: Date: 12/19/24 12/19/24 12:42 Time: 12:44 12/19/24 12:42 Patient unable to answer at this time (ie. 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 internship: /Reproductive Hx- multicultural internship Hx Now Gestational Age (in weeks): EDC: Hx Hx Para Hx Section SAB No 06/02/24 12:12 PFSH Medical History Kidney stones Thyroid disease Uses wheelchair Back pain Parkinson's disease Orthostatic hypotension History of steroid therapy Wears glasses Post-menopausal Cancer Arthritis History of renal disease DVT (deep venous thrombosis) Easy bruising Syncope Dietary restriction History of diverticulitis Interstitial emphysema of lung Non-smoker History of edema Overactive bladder Intramural leiomyoma of uterus Esophageal dysmotility Abnormal Pap smear of vagina and vaginal HPV Positive P-ANCA titer Hypothyroid Home Medications ???Medication ???Instructions ???Recorded ???Last Taken ???Type aspirin 81 mg chewable tablet 81 mg PO DAILY@0800 06/28/1806/02 History cholecalciferol (vitamin D3) 25 1,000 unit PO BID 06/28/18 5 History mcg (1,000 unit) tablet (Vitamin D3) mycophenolate mofetil 500 mg 500 mg PO BID (more content not included)... Normal [facility] CNOVon 12-13-2024 CNOV [facility] CNOVon 12-06-2024 CNOV [facility] CNOVon 11-29-2024 CNOV [facility] CNOVon 11-16-2024 [facility] C[facility] Gastroenterology Visit Repor marcus 11-08-2024 Gastroenterology Visit Report [facility] G[facility]enterology [address] [place] [address] OFFICE VISIT Date of Service: 11/08/24 MR#: [id number] Acct: [id number] Name: EREN MERCHANT Rep #: [id number] : 1960 Provider: KAUSHAL Alas Age/Sex: 64/F Location: [facility] Status: Signed Intake Vital Signs 06/06/24 14:36 Height 5 ft 5 in Intake Visit Reasons: 1 M FU 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: abd pain Allergies cetirizine (From Zyrtec) Allergy (Intermediate, Verified 06/06/24 14:34) Rash erythromycin base Adverse Reaction (Intermediate, Verified 06/06/24 14:34) Diarrhea azithromycin Adverse Reaction (Mild, Verified 06/06/24 14:34) Diarrhea Medications ???Medication ???Instructions ???Recorded ???Confirmed ???Type aspirin 81 mg chewable tablet 81 mg PO DAILY@0800 06/28/1811/08 History cholecalciferol (vitamin D3) 25 1,000 unit PO BID 06/28/18 5 History mcg (1,000 unit) tablet (Vitamin D3) geriatric nvqsvism-pcdf-dcvw 1 ea PO DAILY 06/28/18 11/08/24 Hi story (Complete Senior tablet) mycophenolate mofetil 500 mg 1,000 mg PO DAILY 03/04/24 5 History tablet (CellCept) levothyroxine 100 mcg capsule 100 mcg PO QDAY 04/06/24 11/08/24 History ondansetron 4 mg disintegrating 4 mg PO Q8H PRN nausea and vomitin g 04/06/24 11/08/24 History tablet Lactobacillus acidophilus 250 500 mmu cells PO DAILY 06/02/24 History million cell capsule (Probiotic Acidophilus) amitriptyline 50 mg tablet 100 mg PO QHS 07/07/24 11/08/24 Hi story carbidopa 25 mg-levodopa 100 mg 1 tab PO TID 10/11/24 11/08/24 His tory tablet (Sinemet) pantoprazole 20 mg tablet,delayed 20 mg PO QDAY #30 tabs 10/11/24 0 11/08/24 Rx release carbidopa 25 mg tablet 25 mg PO TID 11/08/24 11/08/24 His tory docusate sodium 100 mg capsule 100 mg PO BID 11/08/24 11/08/24 Hi story (Colace) linaclotide 72 mcg capsule 72 mcg PO QAM #30 caps 11/08/24 Rx (Linzess) Have you fallen in the past year?: Yes Nurse's Note: OV 11/08/24 Pt here for a f/u and reports nausea, constipation, abdominal pain, and indigestion. Pt reports the pantoprazole is helping but colace doesn't seem to be helping with constipation. PFSH Medical History History of steroid therapy Wears glasses Post-menopausal Cancer Arthritis History of renal disease DVT (deep venous thrombosis) Easy bruising Syncope Dietary restriction History of diverticulitis Interstitial emphysema of lung Non-smoker History of edema Overactive bladder Intramural leiomyoma of uterus Esophageal dysmotility Abnormal Pap smear of vagina and vaginal HPV Positive P-ANCA titer Hypothyroid Surgical History Hx of colonoscopy History of esophagogastroduodenoscopy (EGD) Hx of tubal ligation Hx of bladder repair surgery H/O thymectomy History of spinal fusion History of cholecystectomy History of colon resection Family History Mother Thyroid disorder Hypertension Father Heart disease Hypertension COPD (chronic obstructive pulmonary disease) Social History Smoking Status: Never smoker alcohol intake: current alcohol intake frequency: holidays/special occasions only HPI HPI 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: abd pain Details: EREN MERCHANT, is a 64 F who presents to the office today for f/u. BGI established March 2024 after [facility] hospitalization for seizure like activity. 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 Pt on Cellcept and prednisone for interstitial lung disease. Found to have esophageal thickening on imaging. Underwent EGD showing esophageal candidiasis stated on Diflucan and nystatin. EGD 03.07.24; severe candidiasis w/ no bleeding, LA Grade D acute and erosive esophagitis with no bleeding, gastritis and normal duodenum. with recommendation for f/u in 8 weeks. OV 04.06.25 Pt feeling better on anti fungal medications but since discontinuing it she has had some symptoms. Endorses burning, globus sensation and cough. Start Fluconazole 200 mg daily for 14 days. Scheduled for EGD EGD 06.06.24;- Normal esophagus. Biopsied. - Small hiatal hernia. - Normal second portion of the duodenum. OV 07.07.24 Pt doing well today. Reviewed EGD results Swallowing improved after treatment with fluconazole. Last OV 10.11.24 Pt having burning in her esophagus for a few weeks now. It does not feel like when she had esophageal candidiasis. She does not take a PPI. Over the past few months pt has been having lower abdominal pain and constipation. She has had some degree of constipation since her second bowel resection (more content not included)... Normal [facility] CNOVon 10-31-2024 CNOV [facility] CNTHERAPYon 10-31-2024 CNTHERAPY [facility] CNOVon 10-26-2024 CNOV [facility] LUNG DIFFUSION CAPACITY (LAN O)on 10-26-2024 LUNG DIFFUSION CAPACITY (DLCO) Normal [facility] LUNG VOLUMESon 10-26-2024 LUNG VOLUMES [facility] SPIROMETRY BASELINE ONLYon 0 10-26-2024 SPIROMETRY BASELINE ONLY Normal [facility] CNTHERAPYon 10-17-2024 CNTHERAPY Normal [facility] THERAPY NTon 10-17-2024 THERAPY NT Normal [facility] Gastroenterology Visit Repor ton 10-11-2024 Gastroenterology Visit Report [facility] Gastroenterology [address] [place] [address] OFFICE VISIT Date of Service: 10/11/24 MR#: [id number] Acct: [id number] Name: EREN MERCHANT Rep #: [id number] : 1960 Provider: KAUSHAL Alas Age/Sex: 64/F Location: [facility] Status: Signed Intake Vital Signs 06/06/24 14:36 Height 5 ft 5 in Intake Visit Reasons: COLON PAIN-LOWER ABDOMEN 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: abd pain Allergies cetirizine (From Zyrtec) Allergy (Intermediate, Verified 06/06/24 14:34) Rash erythromycin base Adverse Reaction (Intermediate, Verified 06/06/24 14:34) Diarrhea azithromycin Adverse Reaction (Mild, Verified 06/06/24 14:34) Diarrhea Medications ???Medication ???Instructions ???Recorded ???Confirmed ???Type aspirin 81 mg chewable tablet 81 mg PO DAILY@0800 06/28/1810/11 History cholecalciferol (vitamin D3) 25 1,000 unit PO BID 06/28/18 5 History mcg (1,000 unit) tablet (Vitamin D3) geriatric cdeccixz-kuah-nvqf 1 ea PO DAILY 06/28/18 10/11/24 Hi story (Complete Senior tablet) mycophenolate mofetil 500 mg 1,000 mg PO DAILY 03/04/24 5 History tablet (CellCept) levothyroxine 100 mcg capsule 100 mcg PO QDAY 04/06/24 10/11/24 History ondansetron 4 mg disintegrating 4 mg PO Q8H PRN nausea and vomitin g 04/06/24 10/11/24 History tablet Lactobacillus acidophilus 250 500 mmu cells PO DAILY 06/02/24 History million cell capsule (Probiotic Acidophilus) amitriptyline 50 mg tablet 100 mg PO QHS 07/07/24 10/11/24 Hi story carbidopa 25 mg-levodopa 100 mg 1 tab PO TID 10/11/24 10/11/24 His tory tablet (Sinemet) pantoprazole 20 mg tablet,delayed 20 mg PO QDAY #30 tabs 10/11/24 0 10/11/24 Rx release Have you fallen in the past year?: No PFSH Medical History History of steroid therapy Wears glasses Post-menopausal Cancer Arthritis History of renal disease DVT (deep venous thrombosis) Easy bruising Syncope Dietary restriction History of diverticulitis Interstitial emphysema of lung Non-smoker History of edema Overactive bladder Intramural leiomyoma of uterus Esophageal dysmotility Abnormal Pap smear of vagina and vaginal HPV Positive P-ANCA titer Hypothyroid Surgical History Hx of colonoscopy History of esophagogastroduodenoscopy (EGD) Hx of tubal ligation Hx of bladder repair surgery H/O thymectomy History of spinal fusion History of cholecystectomy History of colon resection Family History Mother Thyroid disorder Hypertension Father Heart disease Hypertension COPD (chronic obstructive pulmonary disease) Social History Smoking Status: Never smoker alcohol intake: current alcohol intake frequency: holidays/special occasions only HPI HPI 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: abd pain Details: EREN MERCHANT, is a 64 F who presents to the office today for f/u. PMHx CKD, hypothyroidism, overactive bladder, thymoma w/ bilateral hydronephrosis,, diverticulitis s/p two bowel resections. [facility]GI established March 2024 after [facility] hospitalization for seizure like activity. 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 Pt on Cellcept and prednisone for interstitial lung disease. Found to have esophageal thickening on imaging. Underwent EGD showing esophageal candidiasis stated on Diflucan and nystatin. EGD 03.07.24; severe candidiasis w/ no bleeding, LA Grade D acute and erosive esophagitis with no bleeding, gastritis and normal duodenum. with recommendation for f/u in 8 weeks. OV 04.06.25 Pt feeling better on anti fungal medications but since discontinuing it she has had some symptoms. Endorses burning, globus sensation and cough. Start Fluconazole 200 mg daily for 14 days. Scheduled for EGD EGD 06.06.24;- Normal esophagus. Biopsied. - Small hiatal hernia. - Normal second portion of the duodenum. Last OV 2 Pt doing well today. Reviewed EGD results Swallowing improved after treatment with fluconazole. OV 10.11.25 Pt having burning in her esophagus for a few weeks now. It does not feel like when she had esophageal candidiasis. She does not take a PPI. Over the past few months pt has been having lower abdominal pain and constipation. 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 She started taking Colace 200 mg for three days which did not produce a bm right away. The pain does get better after she has a bm. ROS Const Constitutional: Positive for fatigue, frequent falls and weakness; No fever(s) or weight change ENT ENT: No difficulty swallowing Cardio Cardi (more content not included)... Normal [facility] CNTHERAPYon 10-10-2024 CNTHERAPY Normal [facility] THERAPY NTon 10-10-2024 THERAPY NT Normal [facility] CNTHERAPYon 10-02-2024 CNTHERAPY Normal [facility] 25(OH)D3 SerPl-mCncon 2024 25-hydroxyvitamin D3 [Mass/Vol] 63.0 ng/mL Normal 31.0-80.0 [facility] Comment on above: Order Comment: Speci men Type: BLOOD SPECIMENOrdering Facility: [facility] Address: [place] [address] Result Comment: Clas sification of 25 [place] Vitamin D status:Deficiency/Insufficiency: < or = 30 ng/ml.Sufficiency/Optimal Levels: 31-80 ng/mLToxicity: > 100 ng/mL.Test performed by chemiluminescent immunoassay. Performed By: #### 1 989-3 ####[facility] LABIA [id number] [address] [address] [place] [id number] 09-28-2024 [id number] Normal [facility] ALBUMIN/CREATININE RATIO, UR INEon 09-28-2024 Albumin DL <= 20 mg/L (U) [Mass/Vol] 386.0 mg/L Normal [facility] Comment on above: Order Comment: Speci men Type: URINE SPECIMENOrdering Facility: [facility] Address: [place] [address] Performed By: #### U ACR, 2890-2 ####[facility] LABCLIA [id number] [address] [address] [place] Albumin/Creatinine (U) [Mass ratio] 161 mg/g High <30 [facility] Comment on above: Order Comment: Speci men Type: URINE SPECIMENOrdering Facility: [facility] Address: [place] [address] Result Comment: Adul t Male and Female Nephrotic Criteria:<30 mg/g is considered normal to mildly judnhyvka46-898 mg/g is considered moderately increased>300 mg/g is considered severely increasedKDIGO. (2013). KDIGO 2012 Clinical Practice Guideline for the Evaluation and Management of Chronic Kidney Disease. Official Journal of the International Society of Nephrology, 3(1), 1-150. Performed By: #### U ACR, 2890-2 ####[facility] LABCLIA [id number] [address] [address] [place] CNTHERAPYon 09-28-2024 CNTHERAPY Normal [facility] Magnesium SerPl-mCncon 09-28 Magnesium [Mass/Vol] 2.1 mg/dL Normal 1.7-2.3 [facility] Comment on above: Order Comment: Speci men Type: BLOOD SPECIMENOrdering Facility: [facility] Address: [place] [address] Performed By: #### 2 4362-6, 85395-5, 2730-8 ####[facility] LABIA [id number] [address] [address] [place] PTH-Intact SerPl-ncon - Parathyrin.intact [Mass/Vol] 33 pg/mL Normal 15-65 [facility] Comment on above: Order Comment: Speci men Type: BLOOD SPECIMENOrdering Facility: [facility] Address: [place] [address] Performed By: #### 2 4362-6, 06793-9, 2730-8 ####[facility] LABIA [id number] [address] [address] [place] Prot/Creat Uron 09-28-2024 Creatinine (U) [Mass/Vol] 239.9 mg/dL Normal 20.0-300.0 [facility] Comment on above: Order Comment: Speci men Type: URINE SPECIMENOrdering Facility: [facility] Address: [place] [address] Performed By: #### U ACR, 2890-2 ####[facility] LABCLIA [id number] [address] [address] [place] Protein/Creatinine (U) [Mass ratio] 0.67 mg/mg High <0.15 [facility] Comment on above: Order Comment: Speci men Type: URINE SPECIMENOrdering Facility: [facility] Address: [place] [id number] Result Comment: Adul t Proteinuria Categories:<0.15 mg/mg is considered normal to mildly increased0.15 - 0.50 mg/mg is considered moderately increased>0.50 mg/mg is considered severely increasedKDIGO. (2013). KDIGO 2012 Clinical Practice Guideline for the Evaluation and Management of Chronic Kidney Disease. Official Journal of the International Society of Nephrology, 3(1), 1-150. Performed By: #### U ACR, 0-2 ####[facility] LABCLIA [id number] [address] [address] [place] Protein/Creatinine (U) [Mass ratio]on 09-28-2024 Protein (U) [Mass/Vol] 161 mg/dL High 0-20 Cl [facility] Comment on above: Order Comment: Speci men Type: URINE SPECIMENOrdering Facility: [facility] Address: [place] [address] Performed By: #### U ACR, 2890-2 ####[facility] LABCLIA [id number] [address] [address] [place] Renal function 2000 panelon 09-28-2024 Albumin [Mass/Vol] 4.1 g/dL Normal 3.9-4.9 [facility] Comment on above: Order Comment: Speci men Type: BLOOD SPECIMENOrdering Facility: [facility] Address: [place] [address] Performed By: #### 2 4362-6, 36921-2, 2730-12 ####[facility] LABCLIA [id number] [facility] CENTERK [address] [place] [address] [place] Anion gap [Moles/Vol] 12 mmol/L Normal 8-15 [facility] Comment on above: Order Comment: Speci men Type: BLOOD SPECIMENOrdering Facility: [facility] BobbyMar[facility] Address: [place] [address] Performed By: #### 2 4362-6, , 2730-12 ####[facility] LABCLIA [id number] [facility] [address] [address] [place] Calcium [Mass/Vol] 10.0 mg/dL Normal 8.5-10.2 [facility] Comment on above: Order Comment: Speci men Type: BLOOD SPECIMENOrdering Facility: [facility] Tucker Address: [place] [address] Performed By: #### 2 4362-6, , 2730-12 ####[facility] LABCLIA [id number] [facility] [address] [address] [place] Chloride [Moles/Vol] 101 mmol/L Normal 98-107 [facility] Comment on above: Order Comment: Speci men Type: BLOOD SPECIMENOrdering Facility: [facility] Address: [place] [address] Performed By: #### 2 4362-6, , 2730-12 ####[facility] LABCLIA [id number] [place] [facility]ENT[facility] [address] [place] [address] [place] CO2 [Moles/Vol] 24 mmol/L Normal 22-30 [facility] Comment on above: Order Comment: Speci men Type: BLOOD SPECIMENOrdering Facility: GISELLA Tucker Address: [place] [address] Performed By: #### 2 4362-6, , 2730-12 ####[facility] LABCLIA [id number] [address] [address] [place] Creatinine [Mass/Vol] 1.50 mg/dL High 0.58-0.96 [facility] Comment on above: Order Comment: Melinda lobo Type: BLOOD SPECIMENOrdering Facility: [facility] Address: [place] [address] Performed By: #### 2 4362-6, , 2730-12 ####[facility] [id number] [address] [address] [place] Creatinine and Glomerular filtration rate.predicted panel (S/P/Bld) 38 mL/min/1.73m??? Low >=60 [facility] Comment on above: Order Comment: Melinda lobo Type: BLOOD SPECIMENOrdering Facility: [facility] Address: [place] [address] Result Comment: Hyun mated Glomerular Filtration Rate [...] reflect actual GFR. Performed By: #### 2 4362-6, , 2730-12 ####[facility] LABIA [id number] [address] [address] [place] Glucose [Mass/Vol] 106 mg/dL High 74-99 [facility] Comment on above: Order Comment: Melinda lobo Type: BLOOD SPECIMENOrdering Facility: [facility] Address: [place] [address] Result Comment: The [place] Diabetes Association (ADA) provides guidance for cutoff values for fasting glucose and random glucose. The ADA defines fasting as no caloric intake for at least 8 hours. Fasting plasma glucose results between 100 to 125 mg/dL indicate increased risk for diabetes (prediabetes).Fasting plasma glucose results greater than or equal to 126 mg/dL meet the criteria for diagnosis of diabetes. In the absence of unequivocal hyperglycemia, results should be confirmed by repeat testing. In a patient with classic symptoms of hyperglycemia or hyperglycemic crisis, random plasma glucose results greater than or equal to 200 mg/dL meet the criteria for diagnosis of diabetes.Reference: Standards of Medical Care in Diabetes 2016, [place] Diabetes Association. Diabetes Care. 2016.39(Suppl 1). Performed By: #### 2 4362-6, , 2730-12 ####[facility] LABCLIA [id number] [address] [address] [place] Phosphate [Mass/Vol] 3.2 mg/dL Normal 2.7-4.8 [facility] Comment on above: Order Comment: Speci men Type: BLOOD SPECIMENOrdering Facility: [facility] BobbyMar[facility] Address: [place] [address] Performed By: #### 2 4362-6, , 2730-12 ####[facility] LABCLIA [id number] [address] [address] [place] Potassium [Moles/Vol] 4.3 mmol/L Normal 3.7-5.1 [facility] Comment on above: Order Comment: Zeni men Type: BLOOD SPECIMENOrdering Facility: [facility] Marbury Address: [place] [address] Performed By: #### 2 4362-6, , 2730-12 ####[facility] LABCLIA [id number] [address] [address] [place] Sodium [Moles/Vol] 137 mmol/L Normal 136-144 [facility] Comment on above: Order Comment: Speci men Type: BLOOD SPECIMENOrdering Facility: [facility] Address: [place] [address] Performed By: #### 2 4362-6, , 2730-12 ####[facility] LABCLIA [id number] [facility] [address] [place] [address] [place] Urea nitrogen [Mass/Vol] 24 mg/dL High 7-21 [facility] Comment on above: Order Comment: Speci men Type: BLOOD SPECIMENOrdering Facility: STEPHANYumiko Tcuker Address: [facility] [place] [address] Performed By: #### 2 4362-6, 86689-9, 2731-8 ####[facility] LABCLIA [id number] [facility] [address] [address] [place] Comprehensive metabolic 2000 panelon 09-23-2024 Albumin [Mass/Vol] 3.9 g/dL Normal 3.9-4.9 [facility] Comment on above: Order Comment: Speci men Type: BLOOD SPECIMENOrdering Facility: [facility] Address: [address] [place] [address] Performed By: #### 2 4323-8 ####[facility] LABCLIA [id number] [facility] [place] [id number] [place] ALP [Catalytic activity/Vol] 118 U/L Normal 34-123 [facility] Comment on above: Order Comment: Speci men Type: BLOOD SPECIMENOrdering Facility: [facility] Address: [address] [place] [address] Performed By: #### 2 4323-8 ####[facility] LABCLIA [id number] [facility] [address] [place] [address] [place] ALT [Catalytic activity/Vol] 12 U/L Normal 7-38 [facility] Comment on above: Order Comment: Speci men Type: BLOOD SPECIMENOrdering Facility: [facility] Address: [address] [place] [address] Performed By: #### 2 4323-8 ####[facility] LABCLIA [id number] [facility] [address] [address] [place] Anion gap [Moles/Vol] 14 mmol/L Normal 8-15 [facility] Comment on above: Order Comment: Speci men Type: BLOOD SPECIMENOrdering Facility: [facility] Address: [address] [place] [address] Performed By: #### 2 4323-8 ####[facility] LABCLIA [id number] [place] [address] [place] AST [Catalytic activity/Vol] 21 U/L Normal 13-35 [facility] Comment on above: Order Comment: Speci men Type: BLOOD SPECIMENOrdering Facility: [facility] Address: [address] [place] [address] Performed By: #### 2 4323-8 ####[facility] LABCLIA [id number] [place] [address] [place] Bilirubin [Mass/Vol] 0.4 mg/dL Normal 0.2-1.3 [facility] Comment on above: Order Comment: Speci men Type: BLOOD SPECIMENOrdering Facility: [facility] Address: [address] [place] [address] Performed By: #### 2 4323-8 ####[facility] LABCLIA [id number] [place] [address] [place] Calcium [Mass/Vol] 10.5 mg/dL High 8.5-10.2 [facility] Comment on above: Order Comment: Speci men Type: BLOOD SPECIMENOrdering Facility: [facility] Address: [address] [place] [address] Performed By: #### 2 4323-8 ####[facility] LABCLIA [id number] [place] [id number] [place] Chloride [Moles/Vol] 101 mmol/L Normal 98-107 [facility] Comment on above: Order Comment: Speci men Type: BLOOD SPECIMENOrdering Facility: [facility] Address: [address] [place] [address] Performed By: #### 2 4323-8 ####[facility] LABCLIA [id number] [place] [id number] [place] CO2 [Moles/Vol] 21 mmol/L Low 22-30 [facility] Comment on above: Order Comment: Speci men Type: BLOOD SPECIMENOrdering Facility: [facility] Address: [address] [place] [address] Performed By: #### 2 4323-8 ####[facility] LABCLIA [id number] [facility] [address] [address] [place] Creatinine [Mass/Vol] 1.42 mg/dL High 0.58-0.96 [facility] Comment on above: Order Comment: Speci men Type: BLOOD SPECIMENOrdering Facility: [facility] Address: [address] [place] [address] Performed By: #### 2 4323-8 ####[facility] LABCLIA [id number] [facility] [place] [address] [place] Creatinine and Glomerular filtration rate.predicted panel (S/P/Bld) 41 mL/min/1.73m??? Low >=60 [facility] Comment on above: Order Comment: Speci men Type: BLOOD SPECIMENOrdering Facility: [facility] Address: [address] [place] [address] Result Comment: Hyun mated Glomerular Filtration Rate [...] actual GFR. Performed By: #### 2 4323-8 ####[facility] LABCLIA [id number] [facility] [place] [id number] [place] Glucose [Mass/Vol] 92 mg/dL Normal 74-99 [facility] Comment on above: Order Comment: Speci men Type: BLOOD SPECIMENOrdering Facility: [facility] Address: [address] [place] [address] Result Comment: The [place] Diabetes Association (ADA) provides guidance for cutoff values for fasting glucose and random glucose. The ADA defines fasting as no caloric intake for at least 8 hours. Fasting plasma glucose results between 100 to 125 mg/dL indicate increased risk for diabetes (prediabetes).Fasting plasma glucose results greater than or equal to 126 mg/dL meet the criteria for diagnosis of diabetes. In the absence of unequivocal hyperglycemia, results should be confirmed by repeat testing. In a patient with classic symptoms of hyperglycemia or hyperglycemic crisis, random plasma glucose results greater than or equal to 200 mg/dL meet the criteria for diagnosis of diabetes.Reference: Standards of Medical Care in Diabetes 2016, [place] Diabetes Association. Diabetes Care. 2016.39(Suppl 1). Performed By: #### 2 4323-8 ####[facility] LABCLIA [id number] [place] [address] [place] Potassium [Moles/Vol] 4.4 mmol/L Normal 3.7-5.1 [facility] Comment on above: Order Comment: Speci men Type: BLOOD SPECIMENOrdering Facility: [facility] Address: [address] [place] [address] Performed By: #### 2 432-8 ####[facility] LABCLIA [id number] [place] [address] [place] Protein [Mass/Vol] 7.5 g/dL Normal 6.3-8.0 [facility] Comment on above: Order Comment: Speci men Type: BLOOD SPECIMENOrdering Facility: [facility] Address: [address] [place] [address] Performed By: #### 2 4323-8 ####[facility] LABCLIA [id number] [place] [id number] [place] Sodium [Moles/Vol] 136 mmol/L Normal 136-144 [facility] Comment on above: Order Comment: Speci men Type: BLOOD SPECIMENOrdering Facility: [facility] Address: [address] [place] [address] Performed By: #### 2 4323-8 ####[facility] LABCLIA [id number] [place] [id number] [place] Urea nitrogen [Mass/Vol] 25 mg/dL High 7-21 [facility] Comment on above: Order Comment: Speci men Type: BLOOD SPECIMENOrdering Facility: [facility] Address: [address] [place] [id number] Performed By: #### 2 4323-8 ####[facility] LABCLIA [id number] [place] [id number] [place] CNOVon 09-22-2024 CNOV Normal [facility] CNOVon 09-11-2024 CNOV Normal [facility] No Panel Informationon 09-11 Radiology Study observation (narrative) [facility] XR FACIAL BONES 3V AP/LAT/WA TERSon 09-11-2024 XR FACIAL BONES 3V AP/LAT/DE JESUS Normal [facility] XR Facial bones 3 Viewson IMPRESSION: Questionable nondisplaced fracture of the left mandibular ramus versus artifact. Correlate with physical examination for possible point tenderness in this region. If clinically indicated, further evaluation with CT may be made. Upper Shaper: PSCB Transcribe Date/Time: Sep 11 2024 1:34P Dictated by : JIMENA CHI MD This examination was interpreted and the report reviewed and electronically signed by: JIMENA CHI MD on Sep 11 2024 1:37PM [facility] DIVISION OF RADIOLOGY * * *Final Report* * * DATE OF EXAM: Sep 11 2024 1:05PM WOX [id number] - XR FACIAL BONES 3V AP/LAT/DE JESUS / PROCEDURE REASON: multiple diagnoses * * * * Physician Interpretation * * * * TITLE: XR FACIAL BONES 3V AP/LAT/DE JESUS CLINICAL INDICATION: Status post fall with pain TECHNIQUE: 3 view radiographic study of the facial bones COMPARISON: None FINDINGS: Orbital rims appear grossly intact. Questionable nondisplaced fracture of the left mandibular ramus versus related to artifact from overlapping osseous structures. Visualized paranasal sinuses grossly clear. DIVISION OF RADIOLOGY Provider, [facility] Leon Mancia - 09/11/2024 * * *Final Report* * * DATE OF EXAM: Sep 11 2024 1:05PM WOX [id number] - XR FACIAL BONES 3V AP/LAT/DE JESUS / PROCEDURE REASON: multiple diagnoses * * * * Physician Interpretation * * * * TITLE: XR FACIAL BONES 3V AP/LAT/DE JESUS CLINICAL INDICATION: Status post fall with pain TECHNIQUE: 3 view radiographic study of the facial bones COMPARISON: None FINDINGS: Orbital rims appear grossly intact. Questionable nondisplaced fracture of the left mandibular ramus versus related to artifact from overlapping osseous structures. Visualized paranasal sinuses grossly clear. IMPRESSION IMPRESSION: Questionable nondisplaced fracture of the left mandibular ramus versus artifact. Correlate with physical examination for possible point tenderness in this region. If clinically indicated, further evaluation with CT may be made. [facility] Shaper[facility] Transcribe Date/Time: Sep 11 2024 1:34P Dictated by : JIMENA CHI MD This examination was interpreted and the report reviewed and electronically signed by: JIMENA CHI MD on Sep 11 2024 1:37PM EST [facility] XR HIP 3V PELV+ AP/LAT RTon 09-11-2024 XR HIP 3V PELV+ AP/LAT RT Normal [facility] XR LUMBAR 3V AP/LAT/L5-S1on 09-11-2024 XR LUMBAR 3V AP/LAT/L5-S1 Normal [facility] XR Lumbar spine 3 Viewson IMPRESSION: Age indeterminate mild superior endplate compression deformity of L2 though new when compared with 2022 CT abdomen pelvis. Upper Shaper: [facility] Transcribe Date/Time: Sep 11 2024 1:30P Dictated by : JIMENA CHI MD This examination was interpreted and the report reviewed and electronically signed by: JIMENA CHI MD on Sep 11 2024 1:33PM [facility] DIVISION OF RADIOLOGY * * *Final Report* * * DATE OF EXAM: Sep 11 2024 1:05PM WOX 5228 - XR LUMBAR 3V AP/LAT/L5-S1 / PROCEDURE REASON: multiple diagnoses * * * * Physician Interpretation * * * * TITLE: XR LUMBAR 3V AP/LAT/L5-S1 CLINICAL INDICATION: Status post fall with pain TECHNIQUE: 3 view radiographic study of the lumbar spine COMPARISON: Correlation made to CT chest dated 06/12/[address] urogram dated 06/09/2022 FINDINGS: For the purposes of this report, L4 will be at the level of the iliac crests. There is mild age indeterminate superior endplate compression deformity of L2. Remainder of the vertebral body heights are preserved. There is mild to moderate disc space narrowing at L4/L5 and L5/S1. Mild chronic superior endplate compression deformity of T11. DIVISION OF RADIOLOGY Provider, [facility] - 09/11/2024 * * *Final Report* * * DATE OF EXAM: Sep 11 2024 1:05PM WOX 5228 - XR LUMBAR 3V AP/LAT/L5-S1 / PROCEDURE REASON: multiple diagnoses * * * * Physician Interpretation * * * * TITLE: XR LUMBAR 3V AP/LAT/L5-S1 CLINICAL INDICATION: Status post fall with pain TECHNIQUE: 3 view radiographic study of the lumbar spine COMPARISON: Correlation made to CT chest dated 06/12/[address] urogram dated 06/09/2022 FINDINGS: For the purposes of this report, L4 will be at the level of the iliac crests. There is mild age indeterminate superior endplate compression deformity of L2. Remainder of the vertebral body heights are preserved. There is mild to moderate disc space narrowing at L4/L5 and L5/S1. Mild chronic superior endplate compression deformity of T11. IMPRESSION IMPRESSION: Age indeterminate mild superior endplate compression deformity of L2 though new when compared with 2022 CT abdomen pelvis. [facility] Shaper[facility] Transcribe Date/Time: Sep 11 2024 1:30P Dictated by : JIMENA CHI MD This examination was interpreted and the report reviewed and electronically signed by: JIMENA CHI MD on Sep 11 2024 1:33PM EST [facility] XR Pelvis and Hip - right AP and Lateral frogon 09-11-2024 IMPRESSION: No radiographic evidence of acute osseous injury. Upper Shaper: [facility] Transcribe Date/Time: Sep 11 2024 1:28P Dictated by : JIMENA CHI MD This examination was interpreted and the report reviewed and electronically signed by: JIMENA CHI MD on Sep 11 2024 1:30PM [facility] DIVISION OF RADIOLOGY * * *Final Report* * * DATE OF EXAM: Sep 11 2024 1:05PM WOX 5352 - XR HIP 3V PELV+ AP/LAT RT / PROCEDURE REASON: multiple diagnoses * * * * Physician Interpretation * * * * TITLE: XR HIP 3V PELV+ AP/LAT RT CLINICAL INDICATION: Status post fall with pain TECHNIQUE: AP radiograph of the pelvis and AP/frog leg lateral radiographs of the right hip COMPARISON: Radiograph dated 11/29/2023 FINDINGS: No acute fracture or dislocation identified. Bilateral hip joint spaces appear symmetric and relatively preserved. Neurostimulator device seen projecting over the left pelvis. DIVISION OF RADIOLOGY Provider, [facility] - 09/11/2024 * * *Final Report* * * DATE OF EXAM: Sep 11 2024 1:05PM WOX 5352 - XR HIP 3V PELV+ AP/LAT RT / PROCEDURE REASON: multiple diagnoses * * * * Physician Interpretation * * * * TITLE: XR HIP 3V PELV+ AP/LAT RT CLINICAL INDICATION: Status post fall with pain TECHNIQUE: AP radiograph of the pelvis and AP/frog leg lateral radiographs of the right hip COMPARISON: Radiograph dated 11/29/2023 FINDINGS: No acute fracture or dislocation identified. Bilateral hip joint spaces appear symmetric and relatively preserved. Neurostimulator device seen projecting over the left pelvis. IMPRESSION IMPRESSION: No radiographic evidence of acute osseous injury. Upper Shaper: JUAN Transcribe Date/Time: Sep 11 2024 1:28P Dictated by : JIMENA CHI MD This examination was interpreted and the report reviewed and electronically signed by: JIMENA CHI MD on Sep 11 2024 1:30PM EST [facility] XR Pelvis and Hip - right AP and Lateral frogOrdered By: Ccf Provider on 09-11-2024 [facility] CNOVon 08-31-2024 CNOV Normal [facility] CNOV Normal [facility] TSH SerPl-aCncon 08-31-2024 TSH Qn 1.210 m[IU]/L Normal 0.270-4.20 0 [facility] Comment on above: Order Comment: Speci men Type: BLOOD SPECIMENOrdering Facility: [facility] Address: [address] [place], [place] [address] Performed By: #### 3 016-3 ####[facility] LABCLIA [id number] [facility] CENTERK [address] [place] [address] [place] CHYNA SCREENING W TOMOon 08-21 CHYNA SCREENING W JENN Normal [facility] CNPNon 08-18-2024 CNPN Normal [facility] Bacteria Ur Culton Bacteria identified Cx Nom (U) Normal [facility] Comment on above: Performed By: #### 6 30-4 ####[facility] LABCLIA [id number] [facility] [address] [place] [address] [place] Urinalysis complete panel (U )on 08-17-2024 Bacteria LM.HPF (Urine sed) [#/Area] Negative Normal Negative [facility] Comment on above: Order Comment: Speci men Type: URINE SPECIMENOrdering Facility: [facility] Address: [address] [place] [address] Performed By: #### 2 4356-8 ####[facility] LABCLIA [id number] [address], [facility]95 [place] Bilirubin Ql (U) Negative Normal Negative [facility] Comment on above: Order Comment: Speci men Type: URINE SPECIMENOrdering Facility: [facility] Address: [address] [place] [address] Performed By: #### 2 4356-8 ####[facility] LABCLIA [id number] [address] [place] [address] [place] Clarity (Unsp spec) Cloudy Abnormal Clear [facility] Comment on above: Order Comment: Speci men Type: URINE SPECIMENOrdering Facility: [facility] Address: [address] [place] [address] Performed By: #### 2 4356-8 ####[facility] LABCLIA [id number] [facility] [address] [place] [address] [place] Color (U) Yellow Normal Yellow [facility] Comment on above: Order Comment: Speci men Type: URINE SPECIMENOrdering Facility: [facility] Address: [address] [place] [address] Performed By: #### 2 4356-8 ####[facility] LABCLIA [id number] [address], [facility]95 [place] Epithelial cells LM.HPF (Urine sed) [#/Area] None Seen Normal [facility] Comment on above: Order Comment: Speci men Type: URINE SPECIMENOrdering Facility: [facility] Address: [address] [place] [address] Performed By: #### 2 4356-8 ####[facility] LABCLIA [id number] [address] [place] Glucose Test strip (U) [Mass/Vol] Negative Normal Negative [facility] Comment on above: Order Comment: Speci men Type: URINE SPECIMENOrdering Facility: [facility] Address: [address] [place] [address] Performed By: #### 2 4356-8 ####[facility] LABCLIA [id number] [place] [address] [place] Hemoglobin Ql (U) 3+ Abnormal Negative [facility] Comment on above: Order Comment: Speci men Type: URINE SPECIMENOrdering Facility: [facility] Address: [address] [place] [address] Performed By: #### 2 4356-8 ####[facility] LABCLIA [id number] [address] [address] [place] Hyaline casts (Urine sed) [#/Area] 1-3 /LPF Abnormal 0 /LPF [facility] Comment on above: Order Comment: Speci men Type: URINE SPECIMENOrdering Facility: [facility] Address: [address] [place] [address] Performed By: #### 2 4356-8 ####[facility] LABCLIA [id number] [address] [place] [address] [place] Ketones Ql (U) Negative Normal Negative [facility] Comment on above: Order Comment: Speci men Type: URINE SPECIMENOrdering Facility: [facility] Address: [address] [place] [address] Performed By: #### 2 4356-8 ####[facility] LABCLIA [id number] [address], [place] [address] [place] Leukocyte esterase Test strip Ql (U) 2+ Abnormal Negative [facility] Comment on above: Order Comment: Speci men Type: URINE SPECIMENOrdering Facility: [facility] Address: [address] [place] [address] Performed By: #### 2 4356-8 ####[facility] LABCLIA [id number] [place] [address] [place] Nitrite Ql (U) Negative Normal Negative [facility] Comment on above: Order Comment: Speci men Type: URINE SPECIMENOrdering Facility: [facility] Address: [address] [place] [address] Performed By: #### 2 4356-8 ####[facility] LABCLIA [id number] [address], [place] [address] [place] pH (U) 6.0 [pH] Normal <8.5 [facility] Comment on above: Order Comment: Speci men Type: URINE SPECIMENOrdering Facility: [facility] Address: [address] [place] [address] Performed By: #### 2 4356-8 ####[facility] LABCLIA [id number] [place] [id number] [place] Protein (U) [Mass/Vol] 1+ Abnormal Negative [facility] Comment on above: Order Comment: Speci men Type: URINE SPECIMENOrdering Facility: [facility] Address: [address] [place] [address] Performed By: #### 2 4356-8 ####[facility] LABCLIA [id number] [place] [address] [place] RBC LM.HPF (Urine sed) [#/Area] /[HPF] Abnormal 0-2 /HPF [facility] Comment on above: Order Comment: Speci men Type: URINE SPECIMENOrdering Facility: [facility] Address: [address] [place] [address] Performed By: #### 2 4356-8 ####[facility] LABIA [id number] [place] [address] [place] Specific gravity (U) [Rel density] 1.019 Normal 1.005-1.03 0 [facility] Comment on above: Order Comment: Speci men Type: URINE SPECIMENOrdering Facility: [facility] Address: [address] [place] [address] Performed By: #### 2 4356-8 ####[facility] LABIA [id number] [place] [address] [place] Urobilinogen Ql (U) 0.2 EU/dL Normal 0.2-1.0 EU/dL [facility] Comment on above: Order Comment: Speci men Type: URINE SPECIMENOrdering Facility: [facility] Address: [address] [place] [address] Performed By: #### 2 4356-8 ####[facility] LABIA [id number] [place] [address] [place] WBC LM.HPF (Urine sed) [#/Area] /[HPF] Abnormal 0-5 /HPF [facility] Comment on above: Order Comment: Speci men Type: URINE SPECIMENOrdering Facility: [facility] Address: [address] [place] [address] Performed By: #### 2 4356-8 ####[facility] LABIA [id number] [place] [address] [place] US KIDNEY/BLADDERon 03-31-20 25 US KIDNEY/BLADDER Normal [facility] Bacteria Ur Culton Bacteria identified Cx Nom (U) Abnormal [facility] Comment on above: Performed By: #### 6 30-4 ####[facility] LABCLIA [id number] [address] [place] CNOVon 08-09-2024 CNOV Normal [facility] UA DIP, URINE (POC)on 2024 BILIRUBIN UA (POCT) Negative Negative [facility] CLARITY UA (POCT) Clear [facility] COLOR UA (POCT) Yellow [facility] GLUCOSE UA (POCT) Negative Negative mg/dL [facility] Hemoglobin Ql (U) Large Abnormal Negative [facility] Interpretation and review of laboratory results Abnormal [facility] KETONE UA (POCT) Negative Negative mg/dL [facility] LEUKOCYTES UA (POCT) Large Abnormal Negative [facility] NITRITE UA (POCT) Positive Abnormal Negative [facility] PH UA (POCT) 6 4.5 - 8.0 [facility] Protein Ql (U) 100 mg/dL Abnormal Negative [facility] SPECIFIC GRAVITY UA (POCT) 1.025 1.005 - 1.030 [facility] UROBILINOGEN UA (POCT) 0.2 Sallie l E.U./dL [facility] Location:[facility], [address] [place], [place], [address] [facility] CNPNon 08-07-2024 CNPN Telephone (AKURFL) EREN MERCHANT ([id number]) 1960 F Date Time Provider Department 08/07/24 WILEY BENITEZ During your visit today, we recorded the following information about you: Kirk Santiago 08/07/2024 8:45 AM Signed 08/07/24 Patient has been scheduled w/ for 02/08/25. Kirk Santiago Allergies As of Date: 08/07/2024 Noted Allergy Reaction AMANTADINE 08/03/2024 15 - Contraindication-Medical Juarez* Comments: Has renal failure, has not been on but would avoid due to metabolism. ERYTHROMYCIN 09/14/2022 6 - Diarrhea HAY FEVER (SEASONAL ALLERGIES) 08/13/2009 3 - Cough ZYRTEC (CETIRIZINE HCL) 08/06/2014 9 - Itching Date Reviewed: 08/03/2024 Reviewed by: Bogdan Roberts MD - Fully Assessed Prescriptions as of 08/07/2024 - amitriptyline (ELAVIL) 100 mg tablet Take 1 tablet by mouth daily at bedtime. - carbidopa-levodopa (SINEMET) 25-100 mg per tablet Take 0.5 tablets by mouth three times a day for 30 days, THEN 1 tablet three times a day. Then refill 1 tablet three times daily. - mycophenolate Mofetil (CELLCEPT) 500 mg tablet Take 1 tablet by mouth two times a day. - levothyroxine (SYNTHROID) 100 mcg tablet Take 1 tablet by mouth once daily. Take on empty stomach - fludrocortisone (FLORINEF) 0.1 mg tablet Take 1 tablet by mouth every 12 hours. - ondansetron (ZOFRAN) 4 mg tablet Take 1 tablet by mouth every 8 hours as needed for nausea/vomiting. - estradiol (ESTRACE) 0.01 % (0.1 mg/gram) vaginal cream Use 1 g vaginally two times a week. - calcium carbonate 600 mg-cholecalciferol 400 units 600 mg-10 mcg (400 unit) tab Take 1 tablet by mouth two times a day. - aspirin, enteric coated (ASPIRIN, ENTERIC COATED) 81 mg EC tablet Take 81 mg by mouth once daily. - multivit-min/iron/folic acid/K (MULTI-DAY PLUS MINERALS ORAL) Take 1 capsule by mouth once daily. - L.acidophilus-L.rhamnosus (PROBIOTIC) 15 billion cell capsule Take 1 capsule by mouth once daily. Facility-Administered Medications as of 08/07/2024 - cosyntropin 0.25 mg injection (CORTROSYN) Problem List As Of Date 08/07/2024 Noted Resolved Acquired hypothyroidism [E03.9] Abnormal Papanicolaou Smear of Vagina and Vagin* 02/06/2010 Dyspareunia [TWQ0398] 05/03/2006 02/06/2010 Fx Sacrum/Coccyx-Closed [S32.10XA, S32.2XXA] 05/31/2007 02/06/2010 Fx Dorsal Vertebra-Closed [S22.009A] 11/19/2008 02/06/2010 Diverticulosis [K57.90] 02/06/2010 07/08/2018 Calcaneal spur [M77.30] 06/03/2010 10/01/2017 Hives [L50.9] 10/01/2017 Chronic urticaria [L50.8] 03/03/2012 10/01/2017 Open wound(s) (multiple) of unspecified site(s)*06/02/2012 10/01/2017 Primary osteoarthritis of first carpometacarpal*08/05/2017 07/08/2018 Obesity, Class I, BMI 30-34.9 E66.9 [E66.811] 09/03/2017 07/08/2018 GERD (gastroesophageal reflux disease) [K21.9] [...] [N18.31] 01/12/2023 Obesity, Class I, BMI 30-34.9 [E66.811] 06/22/2023 Chronic interstitial cystitis [N30.10] 03/03/2024 Encounter Status:Closed by KIRK SANTIAGO on 08/07/24 Normal [facility] CNOVon 08-03-2024 CNOV Normal [facility] CBC W Auto Differential pane l (Bld)on 07-31-2024 Basophils (Bld) [#/Vol] 10*3/uL Normal <0.11 [facility] Comment on above: Order Comment: Speci men Type: BLOOD SPECIMENOrdering Facility: [facility] Address: [address] [place] [address] Performed By: #### 4 537-7, 49271-0 ####[facility] LABCLIA [id number] [place] [address] [place] Basophils/100 WBC (Bld) 0.2 % Normal [facility] Comment on above: Order Comment: Speci men Type: BLOOD SPECIMENOrdering Facility: [facility] Address: [address] [place] [address] Performed By: #### 4 537-7, 99538-7 ####[facility] LABCLIA [id number] [place] [address] [place] Differential cell count method Nom (Bld) Auto Normal [facility] Comment on above: Order Comment: Speci men Type: BLOOD SPECIMENOrdering Facility: [facility] Address: [address] [place] [address] Performed By: #### 4 537-7, 38736-6 ####[facility] LABCLIA [id number] [place] [address] [place] Eosinophils (Bld) [#/Vol] 0.03 10*3/uL Normal <0.46 [facility] Comment on above: Order Comment: Speci men Type: BLOOD SPECIMENOrdering Facility: [facility] Address: [address] [place] [address] Performed By: #### 4 537-7, 10256-3 ####[facility] LABCLIA [id number] [place] [address] [place] Eosinophils/100 WBC (Bld) 0.3 % Normal [facility] Comment on above: Order Comment: Speci men Type: BLOOD SPECIMENOrdering Facility: [facility] Address: [address] [place] [address] Performed By: #### 4 537-7, 48069-1 ####[facility] LABCLIA [id number] [address], [place] [address] [place] Erythrocyte distribution width (RBC) [Ratio] 14.4 % Normal 11.5-15.0 [facility] Comment on above: Order Comment: Speci men Type: BLOOD SPECIMENOrdering Facility: [facility] Address: [address] [place] [address] Performed By: #### 4 537-7, 12636-0 ####[facility] LABCLIA [id number] [address], [facility]95 [place] Hematocrit (Bld) [Volume fraction] 38.9 % Normal 36.0-46.0 [facility] Comment on above: Order Comment: Speci men Type: BLOOD SPECIMENOrdering Facility: [facility] Address: [address] [place] [address] Performed By: #### 4 537-7, 71397-3 ####[facility] LABCLIA [id number] [place] [address] [place] Hemoglobin (Bld) [Mass/Vol] 12.2 g/dL Normal 11.5-15.5 [facility] Comment on above: Order Comment: Speci men Type: BLOOD SPECIMENOrdering Facility: [facility] Address: [address] [place] [address] Performed By: #### 4 537-7, 53247-4 ####[facility] LABCLIA [id number] [place] [address] [place] Immature granulocytes (Bld) [#/Vol] 0.03 10*3/uL Normal <0.10 [facility] Comment on above: Order Comment: Speci men Type: BLOOD SPECIMENOrdering Facility: [facility] Address: [address] [place] [address] Performed By: #### 4 537-7, 06819-4 ####[facility] LABCLIA [id number] [place] [address] [place] Immature granulocytes/100 WBC (Bld) 0.3 % Normal [facility] Comment on above: Order Comment: Speci men Type: BLOOD SPECIMENOrdering Facility: [facility] Address: [address] [place] [address] Performed By: #### 4 537-7, 95808-1 ####[facility] LABCLIA [id number] [place] [address] [place] Lymphocytes (Bld) [#/Vol] 2.51 10*3/uL Normal 1.00-4.00 [facility] Comment on above: Order Comment: Speci men Type: BLOOD SPECIMENOrdering Facility: [facility] Address: [address] [place] [address] Performed By: #### 4 537-7, 15730-8 ####[facility] LABIA [id number] [place] [address] [place] Lymphocytes/100 WBC (Bld) 23.9 % Normal [facility] Comment on above: Order Comment: Speci men Type: BLOOD SPECIMENOrdering Facility: [facility] Address: [address] [place] [address] Performed By: #### 4 537-7, 50781-8 ####[facility] [id number] [place] [address] [place] MCH (RBC) [Entitic mass] 26.1 pg Normal 26.0-34.0 [facility] Comment on above: Order Comment: Speci men Type: BLOOD SPECIMENOrdering Facility: [facility] Address: [address] [place] [address] Performed By: #### 4 537-7, 96156-0 ####[facility] [id number] [place] [address] [place] MCHC (RBC) [Mass/Vol] 31.4 g/dL Normal 30.5-36.0 [facility] Comment on above: Order Comment: Speci men Type: BLOOD SPECIMENOrdering Facility: [facility] Address: [address] [place] [address] Performed By: #### 4 537-7, 99492-4 ####[facility] [id number] [place] [id number] [place] MCV (RBC) [Entitic vol] 83.1 fL Normal 80.0-100.0 [facility] Comment on above: Order Comment: Speci men Type: BLOOD SPECIMENOrdering Facility: [facility] Address: [address] [place] [address] Performed By: #### 4 537-7, 64624-1 ####[facility] LABCLIA [id number] [place] [address] [place] Monocytes (Bld) [#/Vol] 0.82 10*3/uL Normal <0.87 [facility] Comment on above: Order Comment: Speci men Type: BLOOD SPECIMENOrdering Facility: [facility] Address: [address] [place] [address] Performed By: #### 4 537-7, 03975-2 ####[facility] LABCLIA [id number] [place] [address] [place] Monocytes/100 WBC (Bld) 7.8 % Normal [facility] Comment on above: Order Comment: Speci men Type: BLOOD SPECIMENOrdering Facility: [facility] Address: [address] [place] [address] Performed By: #### 4 537-7, 56334-0 ####[facility] LABIA [id number] [place] [address] [place] Neutrophils (Bld) [#/Vol] 7.08 10*3/uL Normal 1.45-7.50 [facility] Comment on above: Order Comment: Speci men Type: BLOOD SPECIMENOrdering Facility: [facility] Address: [address] [place] [address] Performed By: #### 4 537-7, 45910-9 ####[facility] LABIA [id number] [place] [address] [place] Neutrophils/100 WBC (Bld) 67.5 % Normal [facility] Comment on above: Order Comment: Speci men Type: BLOOD SPECIMENOrdering Facility: [facility] Address: [address] [place] [address] Performed By: #### 4 537-7, 93683-7 ####[facility] LABIA [id number] [place] [id number] [place] Nucleated RBC (Bld) [#/Vol] 10*3/uL Normal <0.01 [facility] Comment on above: Order Comment: Speci men Type: BLOOD SPECIMENOrdering Facility: [facility] Address: [address] [place] [place] [address] Performed By: #### 4 537-7, 02231-5 ####[facility] LABCLIA [id number] [place] [address] [place] Nucleated RBC/100 WBC (Bld) [Ratio] 0.0 /100 WBC Normal [facility] Comment on above: Order Comment: Speci men Type: BLOOD SPECIMENOrdering Facility: [facility] Address: [address] [place] [address] Performed By: #### 4 537-7, 25407-4 ####[facility] LABIA [id number] [place] [address] [place] Platelet mean volume (Bld) [Entitic vol] 10.2 fL Normal 9.0-12.7 [facility] Comment on above: Order Comment: Speci men Type: BLOOD SPECIMENOrdering Facility: [facility] Address: [address] [place] [address] Performed By: #### 4 537-7, 54891-1 ####[facility] LABIA [id number] [place] [address] [place] Platelets (Bld) [#/Vol] 332 10*3/uL Normal 150-400 [facility] Comment on above: Order Comment: Speci men Type: BLOOD SPECIMENOrdering Facility: [facility] Address: [address] [place] [address] Performed By: #### 4 537-7, 63937-8 ####[facility] LABCLIA [id number] [place] [id number] [place] RBC (Bld) [#/Vol] 4.68 10*6/uL Normal 3.90-5.20 [facility] Comment on above: Order Comment: Speci men Type: BLOOD SPECIMENOrdering Facility: [facility] Address: [address] [place] [address] Performed By: #### 4 537-7, 67376-4 ####[facility] LABCLIA [id number] [place] [address] [place] WBC (Bld) [#/Vol] 10.49 10*3/uL Normal 3.70-11.00 [facility] Comment on above: Order Comment: Speci men Type: BLOOD SPECIMENOrdering Facility: [facility] Address: [address] [place] [address] Performed By: #### 4 537-7, 09303-5 ####[facility] LABCLIA [id number] [place] [address] [place] CK SerPl-cCncon 07-31-2024 CK [Catalytic activity/Vol] 70 U/L Normal 42-196 [facility] Comment on above: Order Comment: Speci men Type: BLOOD SPECIMENOrdering Facility: [facility] Address: [address] [place] [address] Performed By: #### 2 157-6, 1987-09 ####[facility] LABCLIA [id number] [place] [address] [place] CNOVon 07-31-2024 CNOV Normal [facility] CRP SerPl-mCncon 07-31-2024 CRP [Mass/Vol] mg/L Normal <0.9 [facility] Comment on above: Order Comment: Speci men Type: BLOOD SPECIMENOrdering Facility: [facility] Address: [address] [place] [address] Performed By: #### 2 157-6, 1987-09 ####[facility] LABCLIA [id number] [place] [address] [place] ESR Westergren method (Bld) [Velocity]on 07-31-2024 ESR (Bld) [Velocity] 17 mm/h Normal 0-20 [facility] Comment on above: Order Comment: Speci men Type: BLOOD SPECIMENOrdering Facility: [facility] Address: [address] [place] [address] Performed By: #### 4 537-7, 81358-6 ####[facility] LABCLIA [id number] [place] [address] [place] Basic metabolic 2000 panelon 07-19-2024 Anion gap [Moles/Vol] 9 mmol/L Normal 8-15 [facility] Comment on above: Order Comment: Speci men Type: BLOOD SPECIMENOrdering Facility: [facility] [place] Address: [address] [place] [address] Performed By: #### 2 4321-2 ####[facility] RAFAELSPRINGFIELD HOSPITALWMARNILIA [id number] [place] [address] [place] Calcium [Mass/Vol] 10.1 mg/dL Normal 8.5-10.2 [facility] Comment on above: Order Comment: Speci men Type: BLOOD SPECIMENOrdering Facility: [facility] [place] Address: [address] [place] [address] Performed By: #### 2 4321-2 ####[facility] NAPLESWNELIA [id number] [place] [address] [place] Chloride [Moles/Vol] 101 mmol/L Normal 98-107 [facility] Comment on above: Order Comment: Speci men Type: BLOOD SPECIMENOrdering Facility: [facility] [place] Address: [address] [place] [address] [place] [address] Performed By: #### 2 4321-2 ####[facility] RAFAEL MILLTOWNCLIA [id number] [place] [id number] [place] CO2 [Moles/Vol] 24 mmol/L Normal 22-30 [facility] Comment on above: Order Comment: Speci men Type: BLOOD SPECIMENOrdering Facility: [facility] [place] Address: [address] [place] [address] [place] [address] Performed By: #### 2 4321-2 ####[facility] FRANKLYNTEMPLENCMANOJ [id number] [place] [address] [place] Creatinine [Mass/Vol] 1.56 mg/dL High 0.58-0.96 [facility] Comment on above: Order Comment: Speci men Type: BLOOD SPECIMENOrdering Facility: [facility] [place] Address: [address] [place] [address] [place] [address] Performed By: #### 2 4321-2 ####[facility] HOSPITALNCLI [id number] [place] [address] [place] Creatinine and Glomerular filtration rate.predicted panel (S/P/Bld) 37 mL/min/1.73m??? Low >=60 [facility] Comment on above: Order Comment: Speci men Type: BLOOD SPECIMENOrdering Facility: [facility] [place] Address: [address] [place] [address] Result Comment: Hyun mated Glomerular Filtration Rate [...] reflect actual GFR. Performed By: #### 2 4321-2 ####[facility] HOSPITALNCLIA [id number] [place] [address] [place] Glucose [Mass/Vol] 68 mg/dL Low 74-99 [facility] Comment on above: Order Comment: Speci men Type: BLOOD SPECIMENOrdering Facility: [facility] [place] Address: [address] [place] [address] [place] [address] Result Comment: The [place] Diabetes Association (ADA) provides guidance for cutoff values for fasting glucose and random glucose. The ADA defines fasting as no caloric intake for at least 8 hours. Fasting plasma glucose results between 100 to 125 mg/dL indicate increased risk for diabetes (prediabetes).Fasting plasma glucose results greater than or equal to 126 mg/dL meet the criteria for diagnosis of diabetes. In the absence of unequivocal hyperglycemia, results should be confirmed by repeat testing. In a patient with classic symptoms of hyperglycemia or hyperglycemic crisis, random plasma glucose results greater than or equal to 200 mg/dL meet the criteria for diagnosis of diabetes.Reference: Standards of Medical Care in Diabetes 2016, [place] Diabetes Association. Diabetes Care. 2016.39(Suppl 1). Performed By: #### 2 4321-2 ####[facility] HOSPITALKAYLEN [id number] [place] [address] [place] Potassium [Moles/Vol] 5.0 mmol/L Normal 3.7-5.1 [facility] Comment on above: Order Comment: Speci men Type: BLOOD SPECIMENOrdering Facility: [facility] Address: [address] [place] [address] Performed By: #### 2 4321-2 ####[facility] HOSPITALYumiko [id number] [place] [address] [place] Sodium [Moles/Vol] 134 mmol/L Low 136-144 [facility] Comment on above: Order Comment: Speci men Type: BLOOD SPECIMENOrdering Facility: [facility] Address: [address] [place] [address] [place] [address] Performed By: #### 2 4321-2 ####[facility] [id number] [place] [address] [place] Urea nitrogen [Mass/Vol] 41 mg/dL High 7-21 [facility] Comment on above: Order Comment: Speci men Type: BLOOD SPECIMENOrdering Facility: [facility] Address: [address] [place], [place] [address] [address] Performed By: #### 2 4321-2 ####[facility] [id number] [place] [address] [place] CNOVon 07-10-2024 CNOV Normal [facility] Renal function 2000 panelon 07-10-2024 Albumin [Mass/Vol] 4.2 g/dL Normal 3.9-4.9 [facility] Comment on above: Order Comment: Speci men Type: BLOOD SPECIMENOrdering Facility: [facility] [place] Address: [address], [place] [address] Performed By: #### 2 4362-6 ####[facility] LABCLIA [id number] [address] [address] [place] Anion gap [Moles/Vol] 10 mmol/L Normal 8-15 [facility] Comment on above: Order Comment: Speci men Type: BLOOD SPECIMENOrdering Facility: [facility] [place] Address: [address] [place] [address] A, [place] [address] Performed By: #### 2 4362-6 ####[facility] LABCLIA [id number] [address] [address] [place] Calcium [Mass/Vol] 9.9 mg/dL Normal 8.5-10.2 [facility] Comment on above: Order Comment: Speci men Type: BLOOD SPECIMENOrdering Facility: [facility] [place] [facility] Address: [address] [facility], [address], [place] [address] Performed By: #### 2 4362-6 ####[facility] LABCLIA [id number] [address] [address] [place] Chloride [Moles/Vol] 105 mmol/L Normal 98-107 [facility] Comment on above: Order Comment: Speci men Type: BLOOD SPECIMENOrdering Facility: [facility] [place] Address: [address], [place] [address] Performed By: #### 2 4362-6 ####[facility] LABCLIA [id number] [address] [address] [place] CO2 [Moles/Vol] 21 mmol/L Low 22-30 [facility] Comment on above: Order Comment: Speci men Type: BLOOD SPECIMENOrdering Facility: [facility] [place] Address: [address] [place] [address] A, [place] [address] Performed By: #### 2 4362-6 ####[facility] LABIA [id number] [address] [address] [place] Creatinine [Mass/Vol] 1.87 mg/dL High 0.58-0.96 [facility] Comment on above: Order Comment: Speci men Type: BLOOD SPECIMENOrdering Facility: [facility] [place] Address: [address] [place] [address] [place] [address] Performed By: #### 2 4362-6 ####[facility] LABIA [id number] [place] [id number] [facility] Creatinine and Glomerular filtration rate.predicted panel (S/P/Bld) 29 mL/min/1.73m??? Low >=60 [facility] Comment on above: Order Comment: Speci men Type: BLOOD SPECIMENOrdering Facility: [facility] [place] Address: [address] [place] [address] [place] [address] Result Comment: Hyun mated Glomerular Filtration Rate [...] reflect actual GFR. Performed By: #### 2 4362-6 ####[facility] LABIA [id number] [address] [address] [place] Glucose [Mass/Vol] 96 mg/dL Normal 74-99 [facility] Comment on above: Order Comment: Speci men Type: BLOOD SPECIMENOrdering Facility: [facility] Address: [address] [place] [address], [facility] [place] [address] Result Comment: The [place] Diabetes Association (ADA) provides guidance for cutoff values for fasting glucose and random glucose. The ADA defines fasting as no caloric intake for at least 8 hours. Fasting plasma glucose results between 100 to 125 mg/dL indicate increased risk for diabetes (prediabetes).Fasting plasma glucose results greater than or equal to 126 mg/dL meet the criteria for diagnosis of diabetes. In the absence of unequivocal hyperglycemia, results should be confirmed by repeat testing. In a patient with classic symptoms of hyperglycemia or hyperglycemic crisis, random plasma glucose results greater than or equal to 200 mg/dL meet the criteria for diagnosis of diabetes.Reference: Standards of Medical Care in Diabetes 2016, [place] Diabetes Association. Diabetes Care. 2016.39(Suppl 1). Performed By: #### 2 4362-6 ####[facility] LABCLIA [id number] [facility] [address] [address] [place] Phosphate [Mass/Vol] 3.8 mg/dL Normal 2.7-4.8 [facility] Comment on above: Order Comment: Speci men Type: BLOOD SPECIMENOrdering Facility: [facility] Address: [address] [place] [address] [place] [address] Performed By: #### 2 4362-6 ####[facility] LABCLIA [id number] [address] [address] [place] Potassium [Moles/Vol] 4.9 mmol/L Normal 3.7-5.1 [facility] Comment on above: Order Comment: Speci men Type: BLOOD SPECIMENOrdering Facility: [facility] Address: [address] [place] [address], [facility] A, [place] [address] Performed By: #### 2 4362-6 ####[facility] LABCLIA [id number] [address] [place] [address] [place] Sodium [Moles/Vol] 136 mmol/L Normal 136-144 [facility] Comment on above: Order Comment: Speci men Type: BLOOD SPECIMENOrdering Facility: [facility] [place] Address: [address] [place] [address] [place] [address] Performed By: #### 2 4362-6 ####[facility] LABCLIA [id number] [facility] [address] [address] [place] Urea nitrogen [Mass/Vol] 38 mg/dL High 7-21 [facility] Comment on above: Order Comment: Speci men Type: BLOOD SPECIMENOrdering Facility: [facility] [place] Address: [address] [place] [address] [place] [place] [address] Performed By: #### 2 4362-6 ####[facility] LABCLIA [id number] [facility] [place] [id number] [place] Urinalysis complete panel (U )on 07-10-2024 BACTERIA UL >9821 High Negative [facility] Comment on above: Order Comment: Speci men Type: URINE SPECIMENOrdering Facility: [facility] [place] Address: [address] [place] [address] [place] [address] Performed By: #### 2 4356-8 ####[facility] LABCLIA [id number] [facility] [address] [address] [place] Bilirubin Ql (U) Negative Normal Negative [facility] Comment on above: Order Comment: Speci men Type: URINE SPECIMENOrdering Facility: [facility] [place] Address: [address] [place] [address] [place] [address] Performed By: #### 2 4356-8 ####[facility] LABCLIA [id number] [facility] [address] [address] [place] Clarity (Unsp spec) Turbid Abnormal Clear [facility] Comment on above: Order Comment: Speci men Type: URINE SPECIMENOrdering Facility: [facility] L[facility] [place] Address: [address] [place], [address], [place] [address] Performed By: #### 2 4356-8 ####[facility] LABCLIA [id number] [address] [address] [place] Color (U) Dark Yellow Abnormal Yellow [facility] Comment on above: Order Comment: Speci men Type: URINE SPECIMENOrdering Facility: [facility] [place] Address: [address] [place], [address], [place] [address] Performed By: #### 2 4356-8 ####[facility] LABCLIA [id number] [place] [address] [place] Epithelial cells LM.HPF (Urine sed) [#/Area] None Seen Normal [facility] Comment on above: Order Comment: Speci men Type: URINE SPECIMENOrdering Facility: [facility] [place] Address: [address] [facility] [facility], [address], [place] [address] Performed By: #### 2 4356-8 ####[facility] LABCLIA [id number] [place] [address] [place] Glucose Test strip (U) [Mass/Vol] Negative Normal Negative [facility] Comment on above: Order Comment: Speci men Type: URINE SPECIMENOrdering Facility: [facility] [place] [place] Address: [address] [facility] [facility], [facility] A, [place] [address] Performed By: #### 2 4356-8 ####[facility] LABCLIA [id number] [address] [address] [place] Hemoglobin Ql (U) 3+ Abnormal Negative [facility] Comment on above: Order Comment: Speci men Type: URINE SPECIMENOrdering Facility: [facility] [place] Address: [address] [place], [address], [facility] [place] [address] Performed By: #### 2 4356-8 ####[facility] LABCLIA [id number] [place] [address] [place] Hyaline casts (Urine sed) [#/Area] 4-10 /LPF Abnormal 0 /LPF [facility] Comment on above: Order Comment: Speci men Type: URINE SPECIMENOrdering Facility: [facility] Address: [address] [place] [address] [place] [address] Performed By: #### 2 4356-8 ####[facility] LABCLIA [id number] [place] [address] [place] Ketones Ql (U) Negative Normal Negative [facility] Comment on above: Order Comment: Speci men Type: URINE SPECIMENOrdering Facility: [facility] [place] Address: [address] [place] [address] Performed By: #### 2 4356-8 ####[facility] LABCLIA [id number] [place] [address] [place] Leukocyte esterase Test strip Ql (U) 3+ Abnormal Negative [facility] Comment on above: Order Comment: Speci men Type: URINE SPECIMENOrdering Facility: [facility] [place] Address: [address] [place] [address] [place] [address] Performed By: #### 2 4356-8 ####[facility] LABCLIA [id number] [place] [address] [place] Nitrite Ql (U) Negative Normal Negative [facility] Comment on above: Order Comment: Speci men Type: URINE SPECIMENOrdering Facility: [facility] Address: [address] [place] [address] [place] [address] Performed By: #### 2 4356-8 ####[facility] LABCLIA [id number] [place] [id number] [place] pH (U) 5.5 [pH] Normal <8.5 [facility] Comment on above: Order Comment: Speci men Type: URINE SPECIMENOrdering Facility: [facility] Address: [address] [place] [address] [place] [address] Performed By: #### 2 4356-8 ####[facility] LABIA [id number] [place] [address] [place] Protein (U) [Mass/Vol] 2+ Abnormal Negative Cl [facility] Comment on above: Order Comment: Speci men Type: URINE SPECIMENOrdering Facility: [facility] [place] Address: [address] [place] [address] [facility] [place] [address] Performed By: #### 2 4356-8 ####[facility] LABIA [id number] [place] [address] [place] RBC LM.HPF (Urine sed) [#/Area] /[HPF] Abnormal 0-2 /HPF [facility] Comment on above: Order Comment: Speci men Type: URINE SPECIMENOrdering Facility: [facility] [place] Address: [address] [place] [address] [place] [address] Performed By: #### 2 4356-8 ####[facility] [id number] [place] [address] [place] Specific gravity (U) [Rel density] 1.021 Normal 1.005-1.03 0 [facility] Comment on above: Order Comment: Speci men Type: URINE SPECIMENOrdering Facility: [facility] [place] Address: [address] [place] [address] [place] [place] [address] Performed By: #### 2 4356-8 ####[facility] [id number] [place] [id number] [place] Urobilinogen Ql (U) 0.2 EU/dL Normal 0.2-1.0 EU/dL [facility] Comment on above: Order Comment: Speci men Type: URINE SPECIMENOrdering Facility: [facility] [place] Address: [address] [place] [address] [place] [address] Performed By: #### 2 4356-8 ####[facility] LABCLIA [id number] [place] [id number] [place] WBC LM.HPF (Urine sed) [#/Area] /[HPF] Abnormal 0-5 /HPF [facility] Comment on above: Order Comment: Speci men Type: URINE SPECIMENOrdering Facility: [facility] L[facility] Address: [address] [facility], [place] [address] Performed By: #### 2 4356-8 ####[facility] LABCLIA [id number] [place] [id number] [place] Gastroenterology Visit Repor ton 07-07-2024 Gastroenterology Visit Report [facility] [address] [place] [address] OFFICE VISIT Date of Service: 07/07/24 MR#: [id number] Acct: [id number] Name: EREN MERCHANT Rep #: [id number] : 1960 Provider: KAUSHAL Alas Age/Sex: 64/F Location: [facility] Status: Signed Intake Vital Signs 03/03/24 13:57 06/06/24 14:36 Height 5 ft 5 in 5 ft 5 in Intake Visit Reasons: 3 M FU 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: brad esophagititis Allergies cetirizine (From Zyrtec) Allergy (Intermediate, Verified 06/06/24 14:34) Rash erythromycin base Adverse Reaction (Intermediate, Verified 06/06/24 14:34) Diarrhea azithromycin Adverse Reaction (Mild, Verified 06/06/24 14:34) Diarrhea Medications ???Medication ???Instructions ???Recorded ???Confirmed ???Type aspirin 81 mg chewable tablet 81 mg PO DAILY@0800 06/28/1806/06 History cholecalciferol (vitamin D3) 25 1,000 unit PO BID 06/28/18 5 History mcg (1,000 unit) tablet (Vitamin D3) geriatric kvvbnkem-vgqi-ofmi 1 ea PO DAILY 06/28/18 06/06/24 Hi story (Complete Senior tablet) mycophenolate mofetil 500 mg 1,000 mg PO DAILY 03/04/24 5 History tablet (CellCept) estradiol 0.01% (0.1 mg/gram) 1 g vaginal 2XW 04/06/24 06/06/24 History vaginal cream (Estrace) levothyroxine 100 mcg capsule 100 mcg PO QDAY 04/06/24 06/06/24 History ondansetron 4 mg disintegrating 4 mg PO Q8H PRN nausea and vomitin g 04/06/24 06/06/24 History tablet Lactobacillus acidophilus 250 500 mmu cells PO DAILY 06/02/24 History million cell capsule (Probiotic Acidophilus) PREVAGEN 1 cap PO DAILY 06/02/24 06/06/24 H istory biotin 5,000 mcg sublingual tablet 5,000 mcg sublingual DAILY 06/0206/06/24 History mycophenolate mofetil 500 mg tablet 500 mg PO QHS 06/02/24 06/06/24 History amitriptyline 50 mg tablet 100 mg PO QHS 07/07/24 07/07/24 Hi story Patient : No Have you fallen in the past year?: Yes Nurse's Note: OV 07.07.24 Pt here for f/u and reports she is feeling well since her last visit. [facility] Medical History History of steroid therapy Wears glasses Post-menopausal Cancer Arthritis History of renal disease DVT (deep venous thrombosis) Easy bruising Syncope Dietary restriction History of diverticulitis Interstitial emphysema of lung Non-smoker History of edema Overactive bladder Intramural leiomyoma of uterus Esophageal dysmotility Abnormal Pap smear of vagina and vaginal HPV Positive P-ANCA titer Hypothyroid Surgical History Hx of colonoscopy History of esophagogastroduodenoscopy (EGD) Hx of tubal ligation Hx of bladder repair surgery H/O thymectomy History of spinal fusion History of cholecystectomy History of colon resection Family History Mother Thyroid disorder Hypertension Father Heart disease Hypertension COPD (chronic obstructive pulmonary disease) Social History Smoking Status: Never smoker alcohol intake: current alcohol intake frequency: holidays/special occasions only HPI HPI 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: brad esophagititis Details: EREN MERCHANT, is a 64 F who presents to the office today for f/u. BGi established 04.06.24 following hospitalization for seizure like activity at the [facility]. 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 She is on CellCept and prednisone for intersisital lung disease. During her stay she was found to have esophageal thickening on imaging. She underwent EGD and was found to have severe esophageal candidiasis. She was started on Diflucan and nystatin. She has a hx of esophageal candidiasis and dysphagia prior to this as well. EGD 03.07.24; severe candidiasis w/ no bleeding, LA Grade D acute and erosive esophagitis with no bleeding, gastritis and normal duodenum. with recommendation for f/u in 8 weeks. *Start another course of fluconazole EGD 07.07.24; - Normal esophagus. Biopsied. No pathologic findings - Small hiatal hernia. - Normal second portion of the duodenum. OV 07.07.24 Pt has been doing well since her last visit. She is no longer on steroids. She felt her swallowing improve when she started the fluconazole following her last appointment She denies any dysphagia, esophageal pain, abd pain, heartburn, n/v, constipation or diarrhea. ROS Const Constitutional: Positive for weakness; No fatigue, fever(s) or weight change ENT ENT: No difficulty swallowing Gastro GI: No abdominal pain, belching, bloating, change in bowel habits, change in stool character, coffee ground emesis, constipation, cramping (more content not included)... Normal [facility] Basic metabolic 2000 panelon 07-04-2024 Anion gap [Moles/Vol] 7 mmol/L Low 8-15 [facility] Comment on above: Order Comment: Speci men Type: BLOOD SPECIMENOrdering Facility: [facility] Address: [address] [place] [address], [address], [place] [address] Performed By: #### 2 4321-2 ####[facility] LABCLIA [id number] [place] [address] [place] Calcium [Mass/Vol] 10.1 mg/dL Normal 8.5-10.2 [facility] Comment on above: Order Comment: Speci men Type: BLOOD SPECIMENOrdering Facility: [facility] [place] Address: [address] [facility] [place] [address] Performed By: #### 2 4321-2 ####[facility] LABCLIA [id number] [place] [address] [place] Chloride [Moles/Vol] 106 mmol/L Normal 98-107 [facility] Comment on above: Order Comment: Speci men Type: BLOOD SPECIMENOrdering Facility: [facility] Lara Schultz Address: [address] [place] [address] [place] [address] Performed By: #### 2 4321-2 ####[facility] LABCLIA [id number] [place] [address] [place] CO2 [Moles/Vol] 28 mmol/L Normal 22-30 [facility] Comment on above: Order Comment: Speci men Type: BLOOD SPECIMENOrdering Facility: [facility] Lara Schultz Address: [address] [place] [address] [place] [address] Performed By: #### 2 4321-2 ####[facility] LABCLIA [id number] [place] [address] [place] Creatinine [Mass/Vol] 1.79 mg/dL High 0.58-0.96 [facility] Comment on above: Order Comment: Speci men Type: BLOOD SPECIMENOrdering Facility: [facility] [place] Address: [address] [facility] [place] [address] Performed By: #### 2 4321-2 ####[facility] LABCLIA [id number] [facility] [place] [id number] [place] Creatinine and Glomerular filtration rate.predicted panel (S/P/Bld) 31 mL/min/1.73m??? Low >=60 [facility] Comment on above: Order Comment: Specjanice diamond Type: BLOOD SPECIMENOrdering Facility: [facility] Address: [address] [place] [address] Result Comment: Hyun mated Glomerular Filtration Rate [...] reflect actual GFR. Performed By: #### 2 4321-2 ####[facility] LABIA [id number] [place] [address] [place] Glucose [Mass/Vol] 89 mg/dL Normal 74-99 [facility] Comment on above: Order Comment: Melinda diaomnd Type: BLOOD SPECIMENOrdering Facility: [facility] Address: [address] [place] [address] Result Comment: The [place] Diabetes Association (ADA) provides guidance for cutoff values for fasting glucose and random glucose. The ADA defines fasting as no caloric intake for at least 8 hours. Fasting plasma glucose results between 100 to 125 mg/dL indicate increased risk for diabetes (prediabetes).Fasting plasma glucose results greater than or equal to 126 mg/dL meet the criteria for diagnosis of diabetes. In the absence of unequivocal hyperglycemia, results should be confirmed by repeat testing. In a patient with classic symptoms of hyperglycemia or hyperglycemic crisis, random plasma glucose results greater than or equal to 200 mg/dL meet the criteria for diagnosis of diabetes.Reference: Standards of Medical Care in Diabetes 2016, [place] [employer]. Diabetes Care. 2016.39(Suppl 1). Performed By: #### 2 4321-2 ####[facility] LABIA [id number] [address] [address] [place] Potassium [Moles/Vol] 4.8 mmol/L Normal 3.7-5.1 [facility] Comment on above: Order Comment: Specjanice diamond Type: BLOOD SPECIMENOrdering Facility: [facility] Address: [address] [facility], [address], [place] [address] Performed By: #### 2 4321-2 ####[facility] LABCLIA [id number] [address] [address] [place] Sodium [Moles/Vol] 141 mmol/L Normal 136-144 [facility] Comment on above: Order Comment: Speci men Type: BLOOD SPECIMENOrdering Facility: [facility] [place] Address: [address] [facility], [address], [place] [address] Performed By: #### 2 4321-2 ####[facility] LABCLIA [id number] [place] [id number] [place] Urea nitrogen [Mass/Vol] 37 mg/dL High 7-21 [facility] Comment on above: Order Comment: Speci men Type: BLOOD SPECIMENOrdering Facility: [facility] [place] Address: [address] [facility], [address], [place] [address] Performed By: #### 2 4321-2 ####[facility] LABCLIA [id number] [place] [id number] [place] CNOVon 06-26-2024 CNOV Normal [facility] XR HAND 3V PA/LAT/OBL RTon 0 06-26-2024 XR HAND 3V PA/LAT/OBL RT Normal [facility] CNOVon 06-20-2024 CNOV Normal [facility] CT CHEST WO IVCONon 06-12-[address] CHEST WO IVCON Normal [facility] EGD Reporton 06-06-2024 EGD Report [facility] Medical Records Department [address] [facility] [place] [address] EGD Report MR#: [id number] Acct: [id number] Name: EREN MERCHANT Javier Rep #: [id number] : 1960 64 From: Aditya Cota DO PCP: Dr. Priyanka Smith MD Status:[facility] Patient Name: Eren Merchant Procedure Date: 06/06/2024 3:15 PM Date of : 1960 Age: 64 Procedure: Upper GI endoscopy Indications: Surveillance procedure, Dysphagia Providers: Aditya Cota DO Referring MD: Priyanka Smith Medicines: Monitored Anesthesia Care Patient Profile: This is a 64 year old female. Refer to note in patient chart for documentation of history and physical. Patient has symptoms of chronic dysphagia. Complications: No immediate complications. Procedure: Pre-Anesthesia Assessment: - Prior to the procedure, a History and Physical was performed, and patient medications and allergies were reviewed. The patient is competent. The risks and benefits of the procedure and the sedation options and risks were discussed with the patient. All questions were answered and informed consent was obtained. Patient identification and proposed procedure were verified by the physician in the pre-procedure area. Mental Status Examination: alert and oriented. Airway Examination: normal oropharyngeal airway and neck mobility. Respiratory Examination: clear to auscultation. CV Examination: normal. Prophylactic Antibiotics: The patient does not require prophylactic antibiotics. Prior Anticoagulants: The patient has taken no anticoagulant or antiplatelet agents except for NSAID medication. ASA Grade Assessment: II - A patient with mild systemic disease. After reviewing the risks and benefits, the patient was deemed in satisfactory condition to undergo the procedure. The anesthesia plan was to use monitored anesthesia care (MAC). Immediately prior to administration of medications, the patient was re-assessed for adequacy to receive sedatives. The heart rate, respiratory rate, oxygen saturations, blood pressure, adequacy of pulmonary ventilation, and response to care were monitored throughout the procedure. The physical status of the patient was re-assessed after the procedure. After obtaining informed consent, the endoscope was passed under direct vision. Throughout the procedure, the patient's blood pressure, pulse, and oxygen saturations were monitored continuously. The gastroscope was introduced through the mouth, and advanced to the second part of duodenum. The upper GI endoscopy was accomplished without difficulty. The patient tolerated the procedure well. Scope In: 3:29:23 PM Scope Out: 3:30:14 PM Total Procedure Duration Time 0 hours 0 minutes 51 seconds Findings: The examined esophagus was normal. Biopsies were taken with a cold forceps for histology. Verification of patient identification for the specimen was done. Estimated blood loss was minimal. A small hiatal hernia was present. No other significant abnormalities were identified in a careful examination of the stomach. The second portion of the duodenum was normal. Impression: - Normal esophagus. Biopsied. - Small hiatal hernia. - Normal second portion of the duodenum. Recommendation: - Discharge patient to home. - Resume previous diet. - Continue present medications. - Await pathology results. Procedure Code(s): --- Professional --- 03796, Esophagogastroduodenoscopy, flexible, transoral; with biopsy, single or multiple CPT copyright 2021 [place] [employer]. All rights reserved. The codes documented in this report are preliminary and upon drum stock clerk review may be revised to meet current compliance requirements. Aditya Cota DO 06/06/2024 3:33:34 PM This report has been signed electronically. Number of Addenda: 0 Note Initiated On: 06/06/2024 3:15 PM 06/06/24 1533 Date Aditya Cota DO Cosigner Signature: Date (if indicated) CC: Dr. Priyanka Smith MD; Aditya Cota DO Date Dictated: 06/06/24 1515 Date Transcribed: Upper Shaper: RF Signed [facility] MR/POSTOP.[facility] 06-06-2024 MR/POSTOP.[facility] Medical Records Department [address] [place] [address] Anesthesia Postop Eval I 06/06/24 1536 MR#: [id number] Acct: [id number] Name: EREN MERCHANT Rep #: [id number] : 1960 64 From: Gumaro Sanchez PCP: Dr. Priyanka Smith MD Status:REG SDC Y Race: C Location: [place] [address] Anesthesia: Postop Eval I Current Vital Signs Temperature: 97.7 F Pulse Rate: 93 Blood Pressure: 118/79 Respiratory Rate: 16 Pulse Ox: 100 Oxygen Delivery Method: Room Air Assessment Airway patent: Yes Spontaneous unlabored respirations: Yes Mental status: Calm nausea: No Vomiting: No Anesthesia Complication: No Fluid Hydration Crystalloid volume administer (ml): 10 Total IV fluid infused: 10 Progress Note Anesthesia document: Postop Eval 1 completed: Yes 06/06/24 1537 Date Gumaro Rosarioignbyron Signature: Date CC: Signed Normal [facility] MR/[id number] 06-06-2024 MR/POSTOPAN2 [facility] Medical Records Department [address] [place] [address] Anesthesia Postop Eval II 06/06/241944 MR#: [id number] Acct: [id number] Name: EREN MERCHANT Rep #: [id number] : 1960 64 From: Estevan Crowder MD PCP: Dr. Priyanka Smith MD Status:[facility] Y Race: C Location: EN Anesthesia Postop Eval I Sum Postop Eval Completion status Anesthesia document: Postop Eval 1 completed: Yes Anesthesia Postop Eval I Summary Anesthesia Postop Eval I Summary: Anesthesia Postop Eval I: Assessment Summary Airway patent Yes 06/06/24 15:37 [email or web address] Spontaneous unlabored Yes 06/06/24 15:37 [email or web address] respirations Mental status Calm 06/06/24 15:37 [email or web address] nausea No 06/06/24 15:37 [email or web address] Vomiting No 06/06/24 15:37 [email or web address] Anesthesia Postop Eval I: Fluid Summary Crystalloid volume administer 10 06/06/24 15:37 [email or web address] (ml) Colloids volume administered ( ml) Blood Product volume administered (ml) Total IV fluid infused 10 06/06/24 15:37 [email or web address] Anesthesia Postop Eval I: Summary Notes Anesthesia Complication No 06/06/24 15:37 [email or web address] Anesthesia Complication Comment: Post-operative progress note Anesthesia: Postop Eval II Evaluation Mental status: Awake and Calm Pain Level: 0 nausea: No Vomiting: No Complications Anesthesia Complication: No 06/06/241947 Date Estevan Jones Signature: Date CC: Signed Normal [facility] Surgery Specimen Level Tino 06-06-2024 Surgery Specimen Level IV Patient Age/Sex Location Account Attending Physician EREN MERCHANT 64/F EN [id number] Aditya Cota DO Specimen: [id number] Received: 06/07/24 Status: ALMA Barajas Num: [id number] Spec Type: BRAN INGA Meier Dr: Aditya Cota DO HEADER OPERATION: EGD with biopsy PRE-OP DIAGNOSIS: Candidiasis of esophagus TISSUE SUBMITTED: Random esophagus biopsy MICROSCOPIC DIAGNOSIS Esophagus, random biopsy: Fragments of benign squamous epithelium. SJ.mr 06/08/2024 MICROSCOPIC DESCRIPTION Slides are reviewed. GROSS DESCRIPTION Received in fixative is one container labeled with the patient's name and designated Random esophagus biopsy. The specimen consists of multiple irregular fragments of light lester soft tissue that in aggregate measure 1.2 x 0.2 x 0.1 cm. The specimen is totally submitted in one cassette. MS/mr 06/07/2024 TC:5 CPT:96726 Patient Age/Sex Location Account Attending Physician EREN MERCHANT 64/F EN [id number] Aditya Cota DO Signed (signature on file) Dr. Sammy Szymanski MD 06/08/24 1151 Normal [facility] Comment on above: Performed By: #### P SUIV ####[facility] [id number] [place], [address] /PATFROILAN 06-02-2024 /PAT.[facility] Medical Records Department [address] [place] [address] PAT - Anesthesia 06/02/24 1600 MR#: [id number] Acct: [id number] Name: EREN MERCHANT Rep #: [id number] : 1960 64 From: Estevan Crowder MD PCP: Dr. Priyanka Smith MD Status:PRE [facility] [place] Race: C Location: EN Pre-Assessment Diagnosis/Proposed Procedure Planned Operative Procedure(s): EGD Anesthesia History Anesthesia History - multicultural internship: Anesthesia History - multicultural internship Hx Hospitalization Yes: 03/09 HYPOTENSION/ 06/02/24 12:12 DIZZINESS/YEAST INFECTON OF ESPHOGUS Any Problems With Anesthesia No 06/02/24 12:12 Cholinesterase deficiency No 06/02/24 12:12 You/Your Family Experience No 06/02/24 12:12 fever (hyperthermia) with Relationship Recent Exposure to Contagious No 12/23/17 06:17 Disease Does patient have nerve No 06/02/24 12:12 stimulator Patient instructed to have device shut off --Does patient have Pacemaker or ICD? When Was Last Pacemaker Check QUESTION #4 FULL TEXT: You/Your Family Experience fever (hyperthermia) with Anesthesia Last Oral Intake Last Oral intake: Last Oral Intake NPO since Meds taken in AM with sips of water? Meds patient instructed to take am of surgery PONV PONV - multicultural internship: PONV - multicultural internship Female Yes 06/02/24 12:12 HX of Motion Sickness Yes 06/02/24 12:12 HX of N/V After Surgery No 06/02/24 12:12 Non-Smoker Yes 06/02/24 12:12 Duration of Surgery greater No 06/02/24 12:12 than 60 minutes Number of Risk Factors 3 06/02/24 12:12 PONV Score Moderate Risk 06/02/24 12:12 Height Weight Height Weight: Anesthesia: Height Weight Height 5 ft 5 in 03/03/24 13:57 Respiratory Assessment Respiratory Assessment - multicultural internship: Respiratory Tract Infection Hx - multicultural internship Hx Respiratory Tract Infection No 06/02/24 12:12 STOP Sleep Apnea STOP Sleep Apnea - multicultural internship: STOP Sleep Apnea - multicultural internship Hx Hypertension Yes: CONTROLLED WITH MED 06/02/24 12:12 Hx Sleep Apnea No 06/02/24 12:12 CPAP BIPAP Do you snore loudly (louder No 06/02/24 12:12 than talking or can be heard Do you often feel tired/ No 06/02/24 12:12 fatigued/ sleepy during daytime? Has anyone observed you stop No 06/02/24 12:12 breathing during sleep? STOP Results Negative 06/02/24 12:12 QUESTION #5 FULL TEXT : Do you snore loudly (louder than talking or can be heard through closed doors)? 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 internship: /Reproductive Hx- multicultural internship Hx Now No 06/02/24 12:12 Gestational Age (in weeks): EDC: Hx Hx Para Hx Section SAB No 06/02/24 12:12 [facility] Medical History (Updated 06/02/24 @ 12:24 by Lisette Hilton) History of steroid therapy Wears glasses Post-menopausal Cancer Arthritis History of renal disease DVT (deep venous thrombosis) Easy bruising Syncope Dietary restriction History of diverticulitis Interstitial emphysema of lung Non-smoker History of edema Overactive bladder Intramural leiomyoma of uterus Esophageal dysmotility Abnormal Pap smear of vagina and vaginal HPV Positive P-ANCA titer Hypothyroid Home Medications ???Medication ???Instructions ???Recorded ???Last Taken ???Type aspirin 81 mg chewable tablet 81 mg PO DAILY@0800 06/28/18 Unknown History cholecalciferol (vitamin D3) 25 1,000 unit PO BID 06/28/18 Unknown History mcg (1,000 unit) tablet (Vitamin D3) geriatric uxcyuwas-uvih-kgel 1 ea PO DAILY 06/28/18 Unknown History (Complete Senior tablet) mycophenolate mofetil (more content not included)... Normal [facility] CNPNon 05-31-2024 CNPN Normal [facility] CNOVon 05-30-2024 CNOV Normal [facility] Renal function 2000 panelon 05-26-2024 Albumin [Mass/Vol] 4.0 g/dL Normal 3.9-4.9 [facility] Comment on above: Order Comment: Speci men Type: BLOOD SPECIMENOrdering Facility: GISELLA Tucker Address: [place] [address] Performed By: #### 2 4362-6 ####[facility] LABCLIA [id number] [facility] [address] [address] [place] Anion gap [Moles/Vol] 13 mmol/L Normal 8-15 [facility] Comment on above: Order Comment: Speci men Type: BLOOD SPECIMENOrdering Facility: [facility] [place] Address: [place] [address] Performed By: #### 2 4362-6 ####[facility] LABCLIA [id number] [facility] [address] [address] [place] Calcium [Mass/Vol] 9.9 mg/dL Normal 8.5-10.2 [facility] Comment on above: Order Comment: Speci men Type: BLOOD SPECIMENOrdering Facility: [facility] [place] Address: [place] [address] Performed By: #### 2 4362-6 ####[facility] LABCLIA [id number] [place] [id number] [place] Chloride [Moles/Vol] 103 mmol/L Normal 98-107 [facility] Comment on above: Order Comment: Speci men Type: BLOOD SPECIMENOrdering Facility: [facility] [place] Address: [place] [address] Performed By: #### 2 4362-6 ####[facility] LABCLIA [id number] [place] [id number] [place] CO2 [Moles/Vol] 22 mmol/L Normal 22-30 [facility] Comment on above: Order Comment: Speci men Type: BLOOD SPECIMENOrdering Facility: [facility] [place] Address: [place] [address] Performed By: #### 2 4362-6 ####[facility] LABCLIA [id number] [address] [address] [place] Creatinine [Mass/Vol] 1.77 mg/dL High 0.58-0.96 [facility] Comment on above: Order Comment: Melinda diamond Type: BLOOD SPECIMENOrdering Facility: [facility] Address: [place] [id number] Performed By: #### 2 4362-6 ####[facility] LABCLIA [id number] [place] [id number] [place] Creatinine and Glomerular filtration rate.predicted panel (S/P/Bld) 31 mL/min/1.73m??? Low >=60 [facility] Comment on above: Order Comment: Melinda diamond Type: BLOOD SPECIMENOrdering Facility: [facility] Address: [place] [id number] Result Comment: Hyun mated Glomerular Filtration Rate [...] reflect actual GFR. Performed By: #### 2 4362-6 ####[facility] LABCLIA [id number] [place] [id number] [place] Glucose [Mass/Vol] 94 mg/dL Normal 74-99 [facility] Comment on above: Order Comment: Melinda diamond Type: BLOOD SPECIMENOrdering Facility: [facility] Address: [place] [address] Result Comment: The [place] Diabetes Association (ADA) provides guidance for cutoff values for fasting glucose and random glucose. The ADA defines fasting as no caloric intake for at least 8 hours. Fasting plasma glucose results between 100 to 125 mg/dL indicate increased risk for diabetes (prediabetes).Fasting plasma glucose results greater than or equal to 126 mg/dL meet the criteria for diagnosis of diabetes. In the absence of unequivocal hyperglycemia, results should be confirmed by repeat testing. In a patient with classic symptoms of hyperglycemia or hyperglycemic crisis, random plasma glucose results greater than or equal to 200 mg/dL meet the criteria for diagnosis of diabetes.Reference: Standards of Medical Care in Diabetes 2016, [place] [employer]. Diabetes Care. 2016.39(Suppl 1). Performed By: #### 2 4362-6 ####[facility] LABCLIA [id number] [address] [address] [place] Phosphate [Mass/Vol] 3.4 mg/dL Normal 2.7-4.8 [facility] Comment on above: Order Comment: Speci men Type: BLOOD SPECIMENOrdering Facility: [facility] [place] Address: [place] [address] Performed By: #### 2 4362-6 ####[facility] LABCLIA [id number] [address] [address] [place] Potassium [Moles/Vol] 3.9 mmol/L Normal 3.7-5.1 [facility] Comment on above: Order Comment: Speci men Type: BLOOD SPECIMENOrdering Facility: [facility] [place] Address: [place] [address] Performed By: #### 2 4362-6 ####[facility] [facility] LABCLIA [id number] [address] [address] [place] Sodium [Moles/Vol] 138 mmol/L Normal 136-144 [facility] Comment on above: Order Comment: Speci men Type: BLOOD SPECIMENOrdering Facility: [facility]ITAL[facility]um[facility] BobbyMarbury Address: [place] [address] Performed By: #### 2 4362-6 ####[facility] LABCLIA [id number] [place] [id number] [place] Urea nitrogen [Mass/Vol] 33 mg/dL High 7-21 [facility] Comment on above: Order Comment: Speci men Type: BLOOD SPECIMENOrdering Facility: [facility] [place] Address: [place] [address] Performed By: #### 2 4362-6 ####[facility] LABCLIA [id number] [address] [address] [place] CNOVon 05-24-2024 CNOV Normal [facility] XR KNEE 4V AP/PA/LAT/MERCH B ILon 05-24-2024 XR KNEE 4V AP/PA/LAT/MERCH MANDI Normal [facility] CORTISOL, 30 MINon 5 Cortisol 30 Min post Unsp challenge [Mass/Vol] 17.9 ug/dL Normal [facility] Comment on above: Order Comment: Speci men Type: BLOOD SPECIMENOrdering Facility: [facility] Address: [address] [place] [address] Performed By: #### C OR30 ####[facility] LABCLIA [id number] [place] [address] [place] CORTISOL, 60 MINon 5 Cortisol 1 Hr post Unsp challenge [Mass/Vol] 22.1 ug/dL Normal [facility] Comment on above: Order Comment: Speci men Type: BLOOD SPECIMENOrdering Facility: [facility] Address: [address] [place] [address] Performed By: #### C ORS60M ####[facility] LABCLIA [id number] [place] [address] [place] INTERPRETATION (ACTHST) Normal [facility] Comment on above: Order Comment: Speci men Type: BLOOD SPECIMENOrdering Facility: [facility] Address: [address] [place] [address] Result Comment: Afte r cortrosyn stimulation, a peak cortisol response greater than 12.6 ug/dL may indicate appropriate cortisol secretion. This result should be interpreted within the clinical context and other test results.Clari et al. Clinical Implications for Biochemical Diagnostic Thresholds of Adrenal Sufficiency Using a Highly Specific Cortisol Immunoassay. 2017 Clin. Biochem. 50:475-480. Performed By: #### C ORS60M ####[facility] LABCLIA [id number] [place] [id number] [place] CORTISOL, BASALon 05-23-2024 Cortisol baseline [Mass/Vol] 8.7 ug/dL Normal 4.8-19.5 [facility] Comment on above: Order Comment: Speci men Type: BLOOD SPECIMENOrdering Facility: [facility] Address: [address] [place] [address] Result Comment: Prov ided reference range is from 6-10 AM sample collection time.Cortisol Reference Range: 6-10 AM = 4.8-19.5 ug/dL, 4-8 PM = 2.5-11.9 ug/dL Performed By: #### C ORTBAS ####[facility] LABCLIA [id number] [place] [address] [place] CNOVon 05-18-2024 CNOV Normal [facility] ACTH Plas-mCncon 05-11-2024 Corticotropin (P) [Mass/Vol] 64.8 pg/mL High 7.2-63.3 [facility] Comment on above: Order Comment: Speci men Type: BLOOD SPECIMENOrdering Facility: [facility] Address: [address] [place] [address] Result Comment: ACTH Reference Range: 7-10 am: 7.2 - 63.3 pg/mL Performed By: #### 2 141-0 ####[facility] LABCLIA [id number] [place] [address] [place] Comprehensive metabolic 2000 panelon 05-11-2024 Albumin [Mass/Vol] 3.9 g/dL Normal 3.9-4.9 [facility] Comment on above: Order Comment: Speci men Type: BLOOD SPECIMENOrdering Facility: [facility] Address: [address] [place] [address] Performed By: #### 2 143-6, 41288-7 ####[facility] LABCLIA [id number] [place] [address] [place] ALP [Catalytic activity/Vol] 98 U/L Normal 34-123 [facility] Comment on above: Order Comment: Speci men Type: BLOOD SPECIMENOrdering Facility: [facility] Address: [address] [place] [address] Performed By: #### 2 143-6, 44819-5 ####[facility] LABCLIA [id number] [place] [address] [place] ALT [Catalytic activity/Vol] 17 U/L Normal 7-38 [facility] Comment on above: Order Comment: Speci men Type: BLOOD SPECIMENOrdering Facility: [facility] Address: [address] [place] [address] Performed By: #### 2 143-6, 08499-6 ####[facility] LABCLIA [id number] [place] [address] [place] Anion gap [Moles/Vol] 12 mmol/L Normal 8-15 [facility] Comment on above: Order Comment: Speci men Type: BLOOD SPECIMENOrdering Facility: [facility] Address: [address] [place] [address] Performed By: #### 2 143-6, 30444-2 ####[facility] LABCLIA [id number] [place] [address] [place] AST [Catalytic activity/Vol] 20 U/L Normal 13-35 [facility] Comment on above: Order Comment: Speci men Type: BLOOD SPECIMENOrdering Facility: [facility] Address: [address] [place] [address] Performed By: #### 2 143-6, 13664-4 ####[facility] LABCLIA [id number] [place] [address] [place] Bilirubin [Mass/Vol] 0.4 mg/dL Normal 0.2-1.3 [facility] Comment on above: Order Comment: Speci men Type: BLOOD SPECIMENOrdering Facility: [facility] Address: [address] [place] [address] Performed By: #### 2 143-6, 53389-3 ####[facility] LABCLIA [id number] [place] [address] [place] Calcium [Mass/Vol] 9.8 mg/dL Normal 8.5-10.2 [facility] Comment on above: Order Comment: Speci men Type: BLOOD SPECIMENOrdering Facility: [facility] Address: [address] [place] [address] Performed By: #### 2 143-6, ####[facility] LABCLIA [id number] [place] [address] [place] Chloride [Moles/Vol] 108 mmol/L High 98-107 [facility] Comment on above: Order Comment: Speci men Type: BLOOD SPECIMENOrdering Facility: [facility] Address: [address] [place] [address] Performed By: #### 2 143-6, ####[facility] LABCLIA [id number] [place] [address] [place] CO2 [Moles/Vol] 22 mmol/L Normal 22-30 [facility] Comment on above: Order Comment: Speci men Type: BLOOD SPECIMENOrdering Facility: [facility] Address: [address] [place] [address] Performed By: #### 2 143-6, ####[facility] LABCLIA [id number] [place] [address] [place] Creatinine [Mass/Vol] 1.73 mg/dL High 0.58-0.96 [facility] Comment on above: Order Comment: Speci men Type: BLOOD SPECIMENOrdering Facility: [facility] Address: [address] [place] [address] Performed By: #### 2 143-6, 80324-6 ####[facility] LABCLIA [id number] [place] [address] [place] Creatinine and Glomerular filtration rate.predicted panel (S/P/Bld) 32 mL/min/1.73m??? Low >=60 [facility] Comment on above: Order Comment: Speci men Type: BLOOD SPECIMENOrdering Facility: [facility] Address: [address] [place] [address] Result Comment: Hyun mated Glomerular Filtration Rate [...] reflect actual GFR. Performed By: #### 2 143-6, 05858-1 ####[facility] LABIA [id number] [place] [address] [place] Glucose [Mass/Vol] 96 mg/dL Normal 74-99 [facility] Comment on above: Order Comment: Melinda diamond Type: BLOOD SPECIMENOrdering Facility: [facility] Address: [address] [place] [address] Result Comment: The [place] Diabetes Association (ADA) provides guidance for cutoff values for fasting glucose and random glucose. The ADA defines fasting as no caloric intake for at least 8 hours. Fasting plasma glucose results between 100 to 125 mg/dL indicate increased risk for diabetes (prediabetes).Fasting plasma glucose results greater than or equal to 126 mg/dL meet the criteria for diagnosis of diabetes. In the absence of unequivocal hyperglycemia, results should be confirmed by repeat testing. In a patient with classic symptoms of hyperglycemia or hyperglycemic crisis, random plasma glucose results greater than or equal to 200 mg/dL meet the criteria for diagnosis of diabetes.Reference: Standards of Medical Care in Diabetes 2016, [place] Diabetes Association. Diabetes Care. 2016.39(Suppl 1). Performed By: #### 2 143-6, 39113-5 ####[facility] [id number] [place] [id number] [place] Potassium [Moles/Vol] 3.9 mmol/L Normal 3.7-5.1 [facility] Comment on above: Order Comment: Melinda [facility] Type: BLOOD SPECIMENOrdering Facility: [facility] Address: [address] [place] [address] Performed By: #### 2 143-6, 33915-8 ####[facility] LABCLIA [id number] [place] [address] [place] Protein [Mass/Vol] 6.9 g/dL Normal 6.3-8.0 [facility] Comment on above: Order Comment: Speci men Type: BLOOD SPECIMENOrdering Facility: [facility] Address: [address] [place] [address] Performed By: #### 2 143-6, 59330-4 ####[facility] LABCLIA [id number] [place] [address] [place] Sodium [Moles/Vol] 142 mmol/L Normal 136-144 [facility] Comment on above: Order Comment: Speci men Type: BLOOD SPECIMENOrdering Facility: [facility] Address: [address] [place] [address] Performed By: #### 2 143-6, 28496-8 ####[facility] LABCLIA [id number] [place] [address] [place] Urea nitrogen [Mass/Vol] 25 mg/dL High 7-21 [facility] Comment on above: Order Comment: Speci men Type: BLOOD SPECIMENOrdering Facility: [facility] Address: [address] [place] [address] Performed By: #### 2 143-6, 47039-5 ####[facility] LABCLIA [id number] [place] [id number] [place] Cortis SerPl-mCncon 05-11-20 24 Cortisol [Mass/Vol] 10.2 ug/dL Normal 4.8-19.5 [facility] Comment on above: Order Comment: Speci men Type: BLOOD SPECIMENOrdering Facility: [facility] Address: [address] [place] [address] Result Comment: Prov ided reference range is from 6-10 AM sample collection time.Cortisol Reference Range: 6-10 AM = 4.8-19.5 ug/dL, 4-8 PM = 2.5-11.9 ug/dL Performed By: #### 2 143-6, 72592-0 ####[facility] LABCLIA [id number] [facility] [place] [address] [place] CNOVon 05-05-2024 CNOV Normal [facility] Basic metabolic 2000 panelon 04-17-2024 Anion gap [Moles/Vol] 13 mmol/L Normal 8-15 [facility] Comment on above: Order Comment: Speci men Type: BLOOD SPECIMENOrdering Facility: [facility] [place] Address: [address] [place] [address] [place] [address] Performed By: #### 2 4321-2 ####[facility]ITALKAYLEN [id number] [place] [address] [place] Calcium [Mass/Vol] 10.3 mg/dL High 8.5-10.2 [facility] Comment on above: Order Comment: Speci men Type: BLOOD SPECIMENOrdering Facility: [facility] [place] Address: [address] [place] [address] [place] [address] Performed By: #### 2 4321-2 ####[facility] RAFAELROCKINGH[facility] MEM[facility] HOSPITALKAYLEN [id number] [place] [address] [place] Chloride [Moles/Vol] 106 mmol/L Normal 98-107 [facility] Comment on above: Order Comment: Speci men Type: BLOOD SPECIMENOrdering Facility: [facility] [place] Address: [address] [place] [address] [place] [address] Performed By: #### 2 4321-2 ####[facility]IT[facility]LEN [id number] [place] [address] [place] CO2 [Moles/Vol] 21 mmol/L Low 22-30 [facility] Comment on above: Order Comment: Speci men Type: BLOOD SPECIMENOrdering Facility: [facility] Address: [address] [place] [address], [facility], [place] [address] Performed By: #### 2 4321-2 ####[facility] [id number] [place] [address] [place] Creatinine [Mass/Vol] 1.68 mg/dL High 0.58-0.96 [facility] Comment on above: Order Comment: Speci men Type: BLOOD SPECIMENOrdering Facility: [facility] Address: [address] [place] [address], [facility], [place] [address] Performed By: #### 2 4321-2 ####[facility] [id number] [place] [address] [place] Creatinine and Glomerular filtration rate.predicted panel (S/P/Bld) 33 mL/min/1.73m??? Low >=60 [facility] Comment on above: Order Comment: Speci men Type: BLOOD SPECIMENOrdering Facility: [facility] Address: [address] [place] [address] [place] [address] Result Comment: Hyun mated Glomerular Filtration Rate [...] reflect actual GFR. Performed By: #### 2 4321-2 ####[facility]ITALNCLIA [id number] [place] [address] [place] Glucose [Mass/Vol] 106 mg/dL High 74-99 [facility] Comment on above: Order Comment: Speci men Type: BLOOD SPECIMENOrdering Facility: [facility] Address: [address] [place] [address], [facility], [place] [address] Result Comment: The [place] Diabetes Association (ADA) provides guidance for cutoff values for fasting glucose and random glucose. The ADA defines fasting as no caloric intake for at least 8 hours. Fasting plasma glucose results between 100 to 125 mg/dL indicate increased risk for diabetes (prediabetes).Fasting plasma glucose results greater than or equal to 126 mg/dL meet the criteria for diagnosis of diabetes. In the absence of unequivocal hyperglycemia, results should be confirmed by repeat testing. In a patient with classic symptoms of hyperglycemia or hyperglycemic crisis, random plasma glucose results greater than or equal to 200 mg/dL meet the criteria for diagnosis of diabetes.Reference: Standards of Medical Care in Diabetes 2016, [place] Diabetes Association. Diabetes Care. 2016.39(Suppl 1). Performed By: #### 2 4321-2 ####[facility] [id number] [place] [address] [place] Potassium [Moles/Vol] 3.1 mmol/L Low 3.7-5.1 [facility] Comment on above: Order Comment: Speci men Type: BLOOD SPECIMENOrdering Facility: [facility] Address: [address] [place] [address] Performed By: #### 2 4321-2 ####[facility] HOSPITALYumiko [id number] [place] [address] [place] Sodium [Moles/Vol] 140 mmol/L Normal 136-144 [facility] Comment on above: Order Comment: Speci men Type: BLOOD SPECIMENOrdering Facility: [facility] Address: [address] [place] [address] [place] [address] Performed By: #### 2 4321-2 ####[facility] HOSPITALDEBBIE [id number] [place] [address] [place] Urea nitrogen [Mass/Vol] 28 mg/dL High 7-21 [facility] Comment on above: Order Comment: Speci men Type: BLOOD SPECIMENOrdering Facility: [facility] Address: [address] [place] [address] [place] [address] Performed By: #### 2 4321-2 ####[facility] [id number] [place] [address] [place] CNOVon 04-17-2024 CNOV Normal [facility] CNPNon 04-14-2024 CNPN Normal [facility] Bacteria Ur Culton Bacteria identified Cx Nom (U) Abnormal [facility] Comment on above: Performed By: #### 6 30-4 ####[facility] LABCLIA [id number] [place] [address] [place] CNOVon 04-10-2024 CNOV Normal [facility] CNPNon 04-10-2024 CNPN Normal [facility] UA DIP, URINE (POC)on 2023 BILIRUBIN UA (POCT) Negative Negative [facility] CLARITY UA (POCT) Clear [facility] COLOR UA (POCT) Yellow [facility] GLUCOSE UA (POCT) Negative Negative mg/dL [facility] Hemoglobin Ql (U) Small Abnormal Negative [facility] Interpretation and review of laboratory results Abnormal [facility] KETONE UA (POCT) Negative Negative mg/dL [facility] LEUKOCYTES UA (POCT) Moderate Abnormal Negative [facility] NITRITE UA (POCT) Negative Negative [facility] PH UA (POCT) 6.5 4.5 - 8.0 [facility] Protein Ql (U) Trace Abnormal Negative mg/dL [facility] SPECIFIC GRAVITY UA (POCT) 1.010 1.005 - 1.030 [facility] UROBILINOGEN UA (POCT) 0.2 Sallie l E.U./dL [facility] Location:[facility], [address] [place] [address] Rd, [place], [address] [facility] POINT OF CARE [facility] Gastroenterology Visit Repor ton 2024 Gastroenterology Visit Report [facility] Gastroenterology [address] [place] [address] OFFICE VISIT Date of Service: 04/06/24 MR#: [id number] Acct: [id number] Name: EREN MERCHANT Rep #: [id number] : 1960 Provider: KAUSHAL Alas Age/Sex: 64/F Location: [facility] Status: Signed Intake Vital Signs 03/03/24 13:57 Height 5 ft 5 in Intake Visit Reasons: Checkup on EGD 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: brad esophagititis Allergies cetirizine (From Zyrtec) Allergy (Verified 04/06/24 07:40) Unknown erythromycin base Adverse Reaction (Intermediate, Verified 04/06/24 07:40) Diarrhea azithromycin Adverse Reaction (Mild, Verified 04/06/24 07:40) Diarrhea Medications ???Medication ???Instructions ???Recorded ???Confirmed ???Type aspirin 81 mg chewable tablet 81 mg PO DAILY@0800 06/28/18 04/06/24 History cholecalciferol (vitamin D3) 25 1,000 unit PO DAILY 06/28/18 04/06/24 History mcg (1,000 unit) tablet (Vitamin D3) geriatric vmemszol-ulqk-gzlq 1 ea PO DAILY 06/28/18 04/06/24 History (Complete Senior tablet) mycophenolate mofetil 500 mg 500 mg PO QHS 03/04/24 04/06/24 History tablet (CellCept) estradiol 0.01% (0.1 mg/gram) 1 g vaginal 2XW 04/06/24 04/06/24 History vaginal cream (Estrace) fluconazole 200 mg tablet 200 mg PO QDAY 2 weeks #14 tabs 04/06/24 04/06/24 Rx levothyroxine 100 mcg capsule 100 mcg PO QDAY 04/06/24 04/06/24 History ondansetron 4 mg disintegrating 4 mg PO Q8H 04/06/24 04/06/24 History tablet Have you fallen in the past year?: No PFSH Medical History Thymoma Overactive bladder Osteopenia Intramural leiomyoma of uterus Esophageal dysmotility Abnormal Pap smear of vagina and vaginal HPV Positive P-ANCA titer Prediabetes Hypothyroid Surgical History H/O thymectomy History of spinal fusion Tubal ligation status Previous back surgery History of cholecystectomy History of colon resection Family History Mother Thyroid disorder Hypertension Father Heart disease Hypertension COPD (chronic obstructive pulmonary disease) Social History Smoking Status: Never smoker alcohol intake: current alcohol intake frequency: holidays/special occasions only HPI HPI 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: brad esophagititis Details: EREN MERCHANT, is a 64 F who presents to the office today for establishment. She has a PMHx of CKD, hypothyroidism, overactive bladder, thymoma present w/ bilateral hydronephrosis, diverticulitis s/p two bowel resections. Pt was hospitalized 03.04.24 for seizure like activity at the [facility]. 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 She is on CellCept and prednisone for intersisital lung disease. During her stay she was found to have esophageal thickening on imaging. She underwent EGD and was found to have severe esophageal candidiasis. She was started on Diflucan and nystatin. She has a hx of esophageal candidiasis and dysphagia prior to this as well. Pt was feeling better on the anti fungal medications but once they stopped her symptoms slowly started coming back. She is having burning, globus sensation and occasional coughing. She feels like she may have the infection again. EGD 03.07.24; severe candidiasis w/ no bleeding, LA Grade D acute and erosive esophagitis with no bleeding, gastritis and normal duodenum. with recommendation for f/u in 8 weeks. ROS Const Constitutional: No fatigue, fever(s) or weight change ENT ENT: Positive for difficulty swallowing Gastro GI: Positive for difficulty swallowing; No abdominal pain, belching, bloating, change in bowel habits, change in stool character, coffee ground emesis, constipation, cramping, diarrhea, heartburn, feeling full early, excessive flatus, incontinent of stools, Vomiting blood/hematemesis, Blood in stool, loose stools, Black,tarry stools, nausea/dyspepsia, pain with swallowing, vomiting or other Musc Musculoskeletal: No joint pain Skin Skin: No yellowing of the eye or itchy eyes Psych Psychiatric: No anxiety and No depression Endo Endocrine: No fatigue or weight change Aller/Imm Allergy/Immunologic: No itchy eyes Danilo/Lymp Hematologic/Lymphatic: No easy bleeding or easy bruising Exam Const General: cooperative and comfortable Nutritional Appearance: average body habitus and well nourished HENWA Head: normal to inspection Ears: hearing grossly normal bilaterally Nose: external nose normal Face and sinus: normal facial exam Eyes General: appearance normal, both eyes and all related structures Neck Neck: normal visual inspection Chest Chest palpation in (more content not included)... Normal [facility] 25(OH)D3 [facility] 2023 25-hydroxyvitamin D3 [Mass/Vol] 49.0 ng/mL Normal 31.0-80.0 [facility] Comment on above: Order Comment: Speci men Type: BLOOD SPECIMENOrdering Facility: [facility] Address: [place] [id number] Result Comment: Clas sification of 25 [place] Vitamin D status:Deficiency/Insufficiency: < or = 30 ng/ml.Sufficiency/Optimal Levels: 31-80 ng/mLToxicity: > 100 ng/mL.Test performed by chemiluminescent immunoassay. Performed By: #### 1 989-3 ####[facility] LABCLIA [id number] [place] [address] [place] ALBUMIN/CREATININE RATIO, INE 04-05-2024 Albumin DL <= 20 mg/L (U) [Mass/Vol] 672.5 mg/L Normal [facility] Comment on above: Order Comment: Speci men Type: URINE SPECIMENOrdering Facility: [facility] Address: [place] [address] Performed By: #### U ACR ####[facility] LABCLIA [id number] [place] [id number] [place] Albumin/Creatinine (U) [Mass ratio] 474 mg/g High <30 [facility] Comment on above: Order Comment: Zeni lobo Type: URINE SPECIMENOrdering Facility: [facility] Address: [place] [id number] Result Comment: Adul t Male and Female Nephrotic Criteria:<30 mg/g is considered normal to mildly -048 mg/g is considered moderately increased>300 mg/g is considered severely increasedKDIGO. (2013). KDIGO 2012 Clinical Practice Guideline for the Evaluation and Management of Chronic Kidney Disease. Official Journal of the International Society of Nephrology, 3(1), 1-150. Performed By: #### U ACR ####[facility] LABCLIA [id number] [address] [address] [place] Creatinine (U) [Mass/Vol] 141.8 mg/dL Normal 20.0-300.0 [facility] Comment on above: Order Comment: Speci men Type: URINE SPECIMENOrdering Facility: GISELLA Tucker Address: [place] [address] Performed By: #### U ACR ####[facility] LABCLIA [id number] [address] [address] [place] PTH-Intact [facility] 03-18 Parathyrin.intact [Mass/Vol] 47 pg/mL Normal 15-65 [facility] Comment on above: Order Comment: Speci men Type: BLOOD SPECIMENOrdering Facility: GISELLA Tucker Address: [place] [address] Performed By: #### 2 731-8, 92788-9 ####[facility] LABIA [id number] [place] [id number] [place] Renal function 2000 panelon 04-05-2024 Albumin [Mass/Vol] 3.9 g/dL Normal 3.9-4.9 [facility] Comment on above: Order Comment: Speci men Type: BLOOD SPECIMENOrdering Facility: GISELLA Tucker Address: [place] [address] Performed By: #### 2 731-8, 54801-8 ####[facility] LABIA [id number] [address] [address] [place] Anion gap [Moles/Vol] 13 mmol/L Normal 8-15 [facility] Comment on above: Order Comment: Speci men Type: BLOOD SPECIMENOrdering Facility: GISELLA Tucker Address: [place] [address] Performed By: #### 2 731-8, 39665-8 ####[facility] LABCLIA [id number] [facility] [address] [address] [place] Calcium [Mass/Vol] 9.6 mg/dL Normal 8.5-10.2 [facility] Comment on above: Order Comment: Speci men Type: BLOOD SPECIMENOrdering Facility: [facility] Address: [place] [address] Performed By: #### 2 731-8, 56915-1 ####[facility] LABCLIA [id number] [facility] [address] [address] [place] Chloride [Moles/Vol] 102 mmol/L Normal 98-107 [facility] Comment on above: Order Comment: Speci men Type: BLOOD SPECIMENOrdering Facility: [facility] Address: [place] [address] Performed By: #### 2 731-8, 04544-8 ####[facility] LABCLIA [id number] [address] [address] [place] CO2 [Moles/Vol] 22 mmol/L Normal 22-30 [facility] Comment on above: Order Comment: Speci men Type: BLOOD SPECIMENOrdering Facility: GISELLA Tucker Address: [place] [address] Performed By: #### 2 731-8, 45724-4 ####[facility] LABCLIA [id number] [facility] [address] [address] [place] Creatinine [Mass/Vol] 2.05 mg/dL High 0.58-0.96 [facility] Comment on above: Order Comment: Speci men Type: BLOOD SPECIMENOrdering Facility: [facility] Address: [place] [address] Performed By: #### 2 731-8, 63935-3 ####[facility] LABCLIA [id number] [place] [address] [place] Creatinine and Glomerular filtration rate.predicted panel (S/P/Bld) 26 mL/min/1.73m??? Low >=60 [facility] Comment on above: Order Comment: Melinda diamond Type: BLOOD SPECIMENOrdering Facility: [facility] BobbyMarbury Address: [place] [address] Result Comment: Hyun mated Glomerular Filtration Rate [...] reflect actual GFR. Performed By: #### 2 731-8, 01841-7 ####[facility] LABCLIA [id number] [place] [address] [place] Glucose [Mass/Vol] 109 mg/dL High 74-99 [facility] Comment on above: Order Comment: Melinda diamond Type: BLOOD SPECIMENOrdering Facility: [facility] Address: [place] [address] Result Comment: The [place] Diabetes Association (ADA) provides guidance for cutoff values for fasting glucose and random glucose. The ADA defines fasting as no caloric intake for at least 8 hours. Fasting plasma glucose results between 100 to 125 mg/dL indicate increased risk for diabetes (prediabetes).Fasting plasma glucose results greater than or equal to 126 mg/dL meet the criteria for diagnosis of diabetes. In the absence of unequivocal hyperglycemia, results should be confirmed by repeat testing. In a patient with classic symptoms of hyperglycemia or hyperglycemic crisis, random plasma glucose results greater than or equal to 200 mg/dL meet the criteria for diagnosis of diabetes.Reference: Standards of Medical Care in Diabetes 2016, [place] Diabetes Association. Diabetes Care. 2016.39(Suppl 1). Performed By: #### 2 731-8, 62591-2 ####[facility] LABIA [id number] [place] [address] [place] Phosphate [Mass/Vol] 3.2 mg/dL Normal 2.7-4.8 [facility] Comment on above: Order Comment: Speci men Type: BLOOD SPECIMENOrdering Facility: [facility] BobbyMarbury Address: [place] [address] Performed By: #### 2 731-8, 10229-5 ####[facility] LABCLIA [id number] [place] [address] [address] [place] Potassium [Moles/Vol] 4.0 mmol/L Normal 3.7-5.1 [facility] Comment on above: Order Comment: Speci men Type: BLOOD SPECIMENOrdering Facility: [facility] BobbyMar[facility] Address: [place] [address] Performed By: #### 2 731-8, 18209-8 ####[facility] LABCLIA [id number] [address] [address] [place] Sodium [Moles/Vol] 137 mmol/L Normal 136-144 [facility] Comment on above: Order Comment: Speci men Type: BLOOD SPECIMENOrdering Facility: [facility] Marbury Address: [place] [address] Performed By: #### 2 731-8, 12663-9 ####[facility] LABCLIA [id number] [facility] [address] [address] [place] Urea nitrogen [Mass/Vol] 21 mg/dL Normal 7-21 [facility] Comment on above: Order Comment: Speci men Type: BLOOD SPECIMENOrdering Facility: [facility] [place] Address: [place] [address] Performed By: #### 2 731-8, 15334-5 ####[facility] LABCLIA [id number] [address] [address] [place] Urinalysis complete panel (U )on 04-05-2024 BACTERIA UL >9821 High Negative [facility] Comment on above: Order Comment: Speci men Type: URINE SPECIMENOrdering Facility: PRCYumiko BobbyMarbury Address: [place] [address] Performed By: #### 2 4356-8 ####[facility] LABCLIA [id number] [place] [address] [place] Bilirubin Ql (U) Negative Normal Negative [facility] Comment on above: Order Comment: Speci men Type: URINE SPECIMENOrdering Facility: [facility] [place] Address: [place] [id number] Performed By: #### 2 4356-8 ####[facility] LABCLIA [id number] [place] [address] [place] Clarity (Unsp spec) Turbid Abnormal Clear [facility] Comment on above: Order Comment: Speci men Type: URINE SPECIMENOrdering Facility: [facility] [place] Address: [place] [id number] Performed By: #### 2 4356-8 ####[facility] LABCLIA [id number] [place] [address] [place] Color (U) Yellow Normal Yellow [facility] Comment on above: Order Comment: Speci men Type: URINE SPECIMENOrdering Facility: [facility] Bobby[facility] Address: [place] [phone] Performed By: #### 2 4356-8 ####[facility] LABCLIA [id number] [place] [address] [place] Epithelial cells LM.HPF (Urine sed) [#/Area] Moderate Normal [facility] Comment on above: Order Comment: Speci men Type: URINE SPECIMENOrdering Facility: [facility] [place] Address: [place] [id number] Performed By: #### 2 4356-8 ####[facility] LABCLIA [id number] [address] [address] [place] Glucose Test strip (U) [Mass/Vol] Negative Normal Negative [facility] Comment on above: Order Comment: Speci men Type: URINE SPECIMENOrdering Facility: [facility] Address: [place] [id number] Performed By: #### 2 4356-8 ####[facility] LABCLIA [id number] [place] [address] [place] Hemoglobin Ql (U) 3+ Abnormal Negative [facility] Comment on above: Order Comment: Speci men Type: URINE SPECIMENOrdering Facility: [facility] Address: [place] [id number] Performed By: #### 2 4356-8 ####[facility] LABCLIA [id number] [place] [address] [place] Hyaline casts (Urine sed) [#/Area] 4-10 /LPF Abnormal 0 /LPF [facility] Comment on above: Order Comment: Speci men Type: URINE SPECIMENOrdering Facility: [facility] Address: [place] [id number] Performed By: #### 2 4356-8 ####[facility] LABCLIA [id number] [place] [address] [place] Ketones Ql (U) Negative Normal Negative [facility] Comment on above: Order Comment: Speci men Type: URINE SPECIMENOrdering Facility: [facility] Address: [place] [id number] Performed By: #### 2 4356-8 ####[facility] LABCLIA [id number] [place] [address] [place] Leukocyte esterase Test strip Ql (U) 3+ Abnormal Negative [facility] Comment on above: Order Comment: Speci men Type: URINE SPECIMENOrdering Facility: [facility] Address: [place] [id number] Performed By: #### 2 4356-8 ####[facility] LABCLIA [id number] [place] [address] [place] Nitrite Ql (U) Positive Abnormal Negative [facility] Comment on above: Order Comment: Speci men Type: URINE SPECIMENOrdering Facility: [facility] Address: [place] [id number] Performed By: #### 2 4356-8 ####[facility] LABCLIA [id number] [place] [address] [place] pH (U) 6.5 [pH] Normal <8.5 [facility] Comment on above: Order Comment: Speci men Type: URINE SPECIMENOrdering Facility: [facility] Address: [place] [id number] Performed By: #### 2 4356-8 ####[facility] LABCLIA [id number] [place] [address] [place] Protein (U) [Mass/Vol] 3+ Abnormal Negative [facility] Comment on above: Order Comment: Speci men Type: URINE SPECIMENOrdering Facility: [facility] Address: [place] [phone] Performed By: #### 2 4356-8 ####[facility] LABCLIA [id number] [place] [address] [place] RBC LM.HPF (Urine sed) [#/Area] /[HPF] Abnormal 0-2 /HPF [facility] Comment on above: Order Comment: Speci men Type: URINE SPECIMENOrdering Facility: [facility] Address: [place] [phone] Performed By: #### 2 4356-8 ####[facility] LABCLIA [id number] [place] [address] [place] Specific gravity (U) [Rel density] 1.017 Normal 1.005-1.03 0 [facility] Comment on above: Order Comment: Speci men Type: URINE SPECIMENOrdering Facility: [facility] Address: [place] [phone] Performed By: #### 2 4356-8 ####[facility] LABCLIA [id number] [address] [address] [place] Urobilinogen Ql (U) 1.0 EU/dL Normal 0.2-1.0 EU/dL [facility] Comment on above: Order Comment: Speci men Type: URINE SPECIMENOrdering Facility: [facility] Address: [place] [address] Performed By: #### 2 4356-8 ####[facility] LABIA [id number] [place] [address] [place] WBC LM.HPF (Urine sed) [#/Area] /[HPF] Abnormal 0-5 /HPF [facility] Comment on above: Order Comment: Speci men Type: URINE SPECIMENOrdering Facility: [facility] Address: [place] [address] Performed By: #### 2 4356-8 ####[facility] [id number] [address] [address] [facility] [address] 04-03-2024 36 Name of caller: Vic booker Contact phone number: [phone] Relationship to Patient: patient Provider: Dr. Kayli Velasquez Practice: Neurology 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/Reason for Call: Patient is requesting ED notes and testing from 03/04/24 and 03/06/24 to be faxed to her neurologist at [phone]. Please advise. Best time of day caller can be reached: Any Patient advised that office/PCP has 24-48 business hours to return their call: Yes [facility] 36on 03-27-2024 36 Spoke with Pt - Pt r equests [place] location. Pt appt rescheduled to 04.07.24 @0920 [facility] with Dr. Blake. Pt aware of appt d/t/l. [facility] 36 Patient retuning christina l and states she was offered [facility] location on the . Please call to reschedule. [facility] 36on 03-24-2024 36 Name of Caller: Vic booker Contact Reason for Appointment: Patient called to verify procedure appointment. Patient asked if there was a closer off to where she lives. Please call patient back to advise. Office Name: Urology Medication Refills need, if any: N/A Medication Name: N/A [facility] 36 Cysto stent removal on 04/04/[address] [place] in [place]. [facility] 36on 03-23-2024 36 Had bilateral laser litho, needs cysto stent removal in one week [facility] No Panel Informationon 03-23 There is no interpre tation needed for this exam. IMAGING Nursing Noteon 03-23-2024 Nursing Note Patient urinated mod amount blood-tinged urine ion bed mcgraw. Removed bed mcgraw and cleaned patient with periwipes. Patient requested to sergio to bathroom. Patient ambulated to bathroom and voided mod amount blood-tinged urine without difficulty. Patient denies dizziness or nausea. Patient's gown was soiled, so RN assisted patient with changing into her clothes while up to bathroom. Normal [facility] Nursing Note Took over care of kaushal pena for RN lunch break. Patient just placed on bed mcgraw per RN. [facility] Op Noteon 03-23-2024 Op Note Date: 03/23/2024 Loca tion: [facility] OR Name: Eren Merchant, : 1960, Diagnosis Pre-op Diagnosis * Calculus of ureter [N20.1] Post-op Diagnosis * Calculus of ureter [N20.1] Procedures CYSTOSCOPY AND PYELOGRAM 41207 - VA CYSTO BLADDER W/URETERAL CATHETERIZATION BILATERAL URETEROSCOPY, HOLMIUM LASER LITHOTRIPSY 66640 - VA CYSTO W/URETEROSCOPY W/LITHOTRIPSY BILATERAL URETERAL STENT CHANGE 84442 - VA CYSTO W/INSERT URETERAL STENT Surgeons * Katherine Bowen - Primary Procedure Summary Anesthesia: General ASA: II Estimated Blood Loss: 10 mL Drains: * None in log * Implants Type Name Action Serial No. Stent STENT URET 6FR 24CM WO GW - [id number] Implanted Staff: Single Wire Saw Operator: Gumaro Roca RN Relief Single Wire Saw Operator: Jordan Jacobson RN Scrub Person: Abdulkadir Summers RN; Leonie Candelario RN Findings: Cystoscopy, bilateral ureteroscopy with laser lithotripsy (right renal, left ureteral) and basket extraction, right stent removal, left stent exchange Very friable bladder with no obvious mass identified Complications: None; patient tolerated the procedure well. Specimens Collected: Order Name Source Comment Collection Info Order Time POTASSIUM WITH MG REFLEX For patients on dialysis to draw potassium day of surgery 03/23/2024 11:19 AM PROTHROMBIN TIME If patient on coumadin within 4 days prior. 03/23/2024 11:19 AM Wound Class: Class II: Clean-Contaminated Blood Products: None Prophylactic Antibiotics: Procedure appropriate prophylactic antibiotic(s) given within 1 hour of surgical incision (two hours if receiving Vancomycin or flouroquinolone) [facility] Op Note Javier Rosenberg 03/23/2024 at 5:20 PM UROLOGY OPERATIVE REPORT PATIENT NAME: Eren Merchant DATE OF : 1960 TODAY'S DATE: 03/23/2024 PreOp Dx bilateral urerteral calculus PostOp Dx Same Operation : cystoscopy pyelogram ureteroscopy laser lithotripsy stent placement bilateral Surgeon Katherine Bowen MD Assist Denver Callaway EBL Minimal Drains 6fr X 24cmJJ on the left no stent placed on the right Dowd Specimen stone Condition To PACU Findings: Eren Merchant is a 63 y.o. female who presents with ureteral calculus . After having a discussion on treatment options, risks and benefits, the patient wishes to proceed forward with surgical intervention Patient was brought to the operating room. A thorough time out was performed and everyone present was in agreement. Patient was placed on OR table. Anesthesia and lines were maintained by the anesthesia team. Patient was placed in the dorsal lithotomy position. Prepped and draped in usual fashion. Pressure points were padded. A cystourethroscope was inserted through the urethra and the bladder was inspected. The stent was pulled to the meatus. A wire was placed under fluoroscopy. Right Diagnostic ureteroscopy was performed using the 6.9 Jordanian semirigid ureteroscope. The scope was advanced along the wire and the ureter was inspected in its entirety up to the renal pelvis. No stone was seen in the ureter. A 12/14 fr ureteral access sheath was advanced over the wire under fluoroscopy. A flexible ureteroscope was passed through the access sheath. The stone was visualized in the lower pole and laser lithotripsied using the holmium laser. All of the stone fragments were too small to basket and were easily passable. There was minimal edema and trauma to the ureter and therefore a stent was not placed. Left The 6.9fr semirigid ureteroscope was advanced alongside the wire. Care was taken to minimize injury to the ureteral orifice. The stone was able to be visualized. It was laser lithotripsied into numerous small passable fragments. All of the larger stone fragments were removed with the stone basket. The ureter was reinspected and all the remaining fragments were small and easily passable. The stent was advanced over the wire through the cystoscope under fluoroscopic visualization. Once in position the wire was removed. A good curl was noted in the kidney and the bladder. The bladder was emptied and patient awoken from anesthesia. Katherine Bowen MD 03/23/24 5:20 PM [facility] 03-22-2024 [facility] 03-21-[address] 03-16-2024 36 Lvm for Pt letting h er know if she still has questions to call our office. [facility] 03-15-2024 36 Name of caller: Vic yumiko Contact phone number: [phone] Relationship to Patient: patient Provider: Clarice Practice: Urology 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/Reason for Call: Pt has an upcoming procedure scheduled with Clarice on 03/23/24. Pt has not received a phone call to answer to go over procedure, time, address, eating or drinking. I was able to give time and address but additional questions were not able to give. Can someone please reach out to patient to advise Please and thank you Best time of day caller can be reached: AM Patient advised that office/PCP has 24-48 business hours to return their call: N/A [place] [address] 03-14-2024 36 Spoke with patient. Advised that since she has had SX with Dr. Bowen and has additional SX scheduled on 03/23 no need to schedule in office follow up at this time. Advised after SX on 03/23 Dr. Bowen will advise on follow up needed and patient will be scheduled at that time. Patient voiced understanding. [facility] 36on 03-13-2024 36 Name of Caller: Vic booker Contact Reason for Appointment: Eren stated she was recently in the hospital and in OV notes it states for her to schedule an appointment with Dr Bae in 2 weeks, Please call Eren back to advise. Office Name: Urology Medication Refills need, if any: N/A Medication Name: N/A [place] [address] 03-10-2024 36 I called and spoke w nico patient. She would prefer to establish with GI near her house. She stated they recommended Dr Cota - she will call his office today and contact us to let us know who she makes an appointment with and we will send records at that time. [address] 03-09-2024 36 Doctor: Clarice PAT (arrive 15 min early): N/A PAT instructions: Please bring photo ID, insurance card, list of all current medications Surgery: 03/23/24 at 12:30pm at [facility] Surgery arrival time: 10:30am Surgery instructions: Nothing to eat after midnight. Can have clear liquids black coffee (no cream or dairy), tea, water, Sprite, apple juice, Gatorade (no reds or purples) up until arrival time. Medication instructions: Hold Aspirin, fish oil and over the counter vitamins 3 days prior to surgery Post op follow-up: [facility] BASIC METABOLIC PANELon 02-15 Anion gap [Moles/Vol] 4 mmol/L Normal 3-13 [facility] Comment on above: Performed By: #### L AB420, [id number] #### Wood Car Builder: LACY OROSCO ([phone]) [facility] ([facility]) [address] [place] [address] Calcium [Mass/Vol] 9.4 mg/dL Normal 8.4-10.4 [facility] Comment on above: Performed By: #### L AB420, [id number] #### Wood [employer] Builder: LACY OROSCO ([id number]) [facility] [address] [place] [address] [place] Chloride [Moles/Vol] 102 mmol/L Normal 98-107 [facility] Comment on above: Performed By: #### L AB420, [id number] #### Wood Car Builder: LACY OROSCO ([phone]) [facility] [address] [place] [address] [place] CO2 [Moles/Vol] 26 mmol/L Normal 22-30 [facility] Comment on above: Performed By: #### L AB420, [id number] #### Wood Car Builder: LACY OROSCO ([phone]) [facility]) [address] [place] [address] Creatinine [Mass/Vol] 1.77 mg/dL High 0.52-1.04 [facility] Comment on above: Performed By: #### L AB420, [id number] #### Wood Car Builder: LACY OROSCO ([phone]) [facility] ([facility]) [address] [place] [address] [place] GLOMERULAR FILTRATION RATE ML/MIN/1.73 SQ M.PREDICTED 31.6 mL/min/1.73m*2 Low >60.0 [facility] Comment on above: Result Comment: Calc ulation based on the Chronic Kidney Disease Epidemiology Collaboration (CKD-EPI) equation refit without adjustment for race Performed By: #### L AB420, [id number] #### Wood Car Builder: LACY OROSCO ([phone]) [facility] ([facility]) [address] [place] [address] [place] Glucose [Mass/Vol] 124 mg/dL High 70-100 [facility] Comment on above: Performed By: #### L AB420, [id number] #### Wood Car Builder: LACY OROSCO ([phone]) [facility] ([facility]) [address] [place] [address] [place] Potassium [Moles/Vol] 3.6 mmol/L Normal 3.5-5.1 [facility] Comment on above: Performed By: #### L AB420, [id number] #### Wood [employer] Builder: LACY OROSCO ([phone]) [facility] ([facility]) [address] [place] [address] Sodium [Moles/Vol] 132 mmol/L Low 135-145 [facility] Comment on above: Performed By: #### L AB420, [id number] #### Wood Car Builder: LACY OROSCO ([phone]) [facility] ([facility]) [address] [place] [address] Urea nitrogen [Mass/Vol] 40 mg/dL High 7-17 [facility] Comment on above: Performed By: #### L AB420, [id number] #### Wood Car Builder: LACY OROSCO ([phone]) [facility] ([facility]) [address] [place] [address] Basic metabolic 1998 panelon 03-09-2024 Anion gap [Moles/Vol] 4 mmol/L 3 - 13 mmol/L [facility] Calcium [Mass/Vol] 9.4 mg/dL 8.4 - 10. 4 mg/dL [facility] Chloride [Moles/Vol] 102 mmol/L 98 - 10 7 mmol/L [facility] CO2 [Moles/Vol] 26 mmol/L 22 - 30 mmol/L [facility] Creatinine [Mass/Vol] 1.77 mg/dL High 0.52 - 1.04 mg/dL [facility] GFR/1.73 sq M.predicted (S/P/Bld) [Vol rate/Area] 31.6 mL/min Low - PINF [facility] Comment on above: Calculation based on the Chronic Kidney Disease Epidemiology Collaboration (CKD-EPI) equation refit without adjustment for race Glucose [Mass/Vol] 124 mg/dL High 70 - 100 mg/dL [facility] Interpretation and review of laboratory results Abnormal [facility] Potassium [Moles/Vol] 3.6 mmol/L 3.5 - 5.1 mmol/L [facility] Sodium [Moles/Vol] 132 mmol/L Low 135 - 145 mmol/L [facility] Urea nitrogen [Mass/Vol] 40 mg/dL High 7 - 17 mg/dL [facility] CBC W Auto Differential pane l (Bld)Ordered By: Vladimir North on 03-09-2024 Erythrocyte distribution width (RBC) [Ratio] 15.3 % High 11.5 - 15.0 % [facility] Hematocrit (Bld) [Volume fraction] 31.4 % Low 35.0 - 47.0 % [facility] Hemoglobin (Bld) [Mass/Vol] 10 g/dL Low 11.7 - 16.0 g/dL [facility] Interpretation and review of laboratory results Abnormal [facility] MCH (RBC) [Entitic mass] 25.3 pg Low 26.0 - 34.0 pg [facility] MCHC (RBC) [Mass/Vol] 31.8 % 30.5 - 36.0 % [facility] MCV (RBC) [Entitic vol] 79.5 fL 77.0 - 99.0 fL [facility] Platelet mean volume (Bld) [Entitic vol] 10.3 fL 9.0 - 12.7 fL [facility] Platelets (Bld) [#/Vol] 401 10*3/uL 140 - 440 10*3/uL [facility] RBC (Bld) [#/Vol] 3.95 10*6/uL 3.80 - 5.20 10*6/uL [facility] WBC (Bld) [#/Vol] 13.8 10*3/uL High 3.6 - 10.7 10*3/uL [facility] CBC WITH AUTO DIFFERENTIALon 03-09-2024 Erythrocyte distribution width (RBC) [Ratio] 15.3 % High 11.5-15.0 [facility] Comment on above: Performed By: #### L [id number], [id number] #### Wood Car Builder: LACY OROSCO ([phone]) [facility] [address] [place] [address] Hematocrit (Bld) [Volume fraction] 31.4 % Low 35.0-47.0 [facility] Comment on above: Performed By: #### L [id number], [id number] #### Wood Car Builder: LACY OROSCO ([phone]) [facility] [address] [place] [address] Hemoglobin (Bld) [Mass/Vol] 10.0 g/dL Low 11.7-16.0 [facility] Comment on above: Performed By: #### L [id number], [id number] #### Wood Car Builder: LACY OROSCO ([phone]) [facility]) [address] [place] [address] MCH (RBC) [Entitic mass] 25.3 pg Low 26.0-34.0 [facility] Comment on above: Performed By: #### Glory [id number], [id number] #### Wood Car Builder: LACY OROSCO ([phone]) [facility] ([facility]) [address] [place] [address] MCHC 31.8 % Normal 30.5-36.0 [facility] Comment on above: Performed By: #### L [id number], [id number] #### Wood Car Builder: LACY OROSCO ([phone]) [facility] ([facility]) [address] [place] [address] MCV (RBC) [Entitic vol] 79.5 fL Normal 77.0-99.0 [facility] Comment on above: Performed By: #### Glory [id number], [id number] #### Wood Car Builder: LACY OROSCO ([phone]) [facility]) [address] [place] [address] Platelet mean volume (Bld) [Entitic vol] 10.3 fL Normal 9.0-12.7 [facility] Comment on above: Performed By: #### L [id number], [id number] #### Wood Car Builder: LACY OROSCO ([phone]) [facility] ([facility]) [address] [place] [address] Platelets (Bld) [#/Vol] 401 10*3/uL Normal 140-440 [facility] Comment on above: Performed By: #### L [id number], [id number] #### Wood Car Builder: LACY OROSCO ([phone]) [facility]) [address] [place] [address] RBC (Bld) [#/Vol] 3.95 10*6/uL Normal 3.80-5.20 [facility] Comment on above: Performed By: #### L [id number], [id number] #### Wood Car Builder: LACY OROSCO ([phone]) [facility] [address] [place] [address] WBC (Bld) [#/Vol] 13.8 10*3/uL High 3.6-10.7 [facility] Comment on above: Performed By: #### L [id number], [id number] #### Wood Car Builder: LACY OROSCO ([phone]) [facility] [address] [place] [address] Laboratory - Hematology and Cell countson 03-09-2024 Band form neutrophils (Bld) [#/Vol] 1.1 10*3/uL High NINF - 0.0 10*3/uL [facility] Band form neutrophils/100 WBC (Bld) 8 % High NINF - 0 % [facility] Mago cells LM Ql (Bld) Rare Abnormal (none) [facility] Eosinophils (Bld) [#/Vol] 0.4 10*3/uL 0.0 - 0.5 10*3/uL [facility] Eosinophils/100 WBC (Bld) 3 % 0 - 6 % [facility] Lymphocytes (Bld) [#/Vol] 1.8 10*3/uL 1.0 - 4.3 10*3/uL [facility] Lymphocytes/100 WBC (Bld) 13 % Low 15 - 45 % [facility] Metamyelocytes (Bld) [#/Vol] 0.1 10*3/uL High NINF - 0.0 10*3/uL [facility] Metamyelocytes/100 WBC (Bld) 1 % High NINF - 0 % [facility] Monocytes (Bld) [#/Vol] 0.6 10*3/uL 0.0 - 0.9 10*3/uL [facility] Monocytes/100 WBC (Bld) 4 % Low 5 - 13 % [facility] Neutrophils (Bld) [#/Vol] 10.9 10*3/uL High 1.8 - 7.5 10*3/uL [facility] Poikilocytosis LM Ql (Bld) Rare Abnormal (none) [facility] RBC morphology finding Nom (Bld) abnormal [facility] Segmented neutrophils/100 WBC (Bld) 71 % 38 - 82 % [facility] MANUAL DIFFERENTIAL (CELLAVI DARIUSZ)on 03-09-2024 BAND NEUTROPHILS TOTAL PER COUNTED LEUKOCYTES BY MANUAL COUNT 8 Normal [facility] Comment on above: Performed By: #### L [id number], [id number] #### Wood Car Builder: LACY OROSCO ([phone]) [facility] ([facility]) [address] [place] [address] BANDS (10*3/UL) IN BLOOD-CELLAVISION 1.1 10*3/uL High <=0.0 [facility] Comment on above: Performed By: #### L [id number], [id number] #### Wood Car Builder: LACY OROSCO ([phone]) [facility] ([facility]) [address] [place] [address] [place] BASOPHILS TOTAL PER COUNTED LEUKOCYTES BY MANUAL COUNT Normal [facility] Comment on above: Performed By: #### L [id number], [id number] #### Wood Car Builder: LACY OROSCO ([phone]) [facility] ([facility]) [address] [place] [address] BLASTS TOTAL PER COUNTED LEUKOCYTES BY MANUAL COUNT Normal [facility] Comment on above: Performed By: #### L [id number], [id number] #### Wood Car Builder: LACY OROSCO ([phone]) [facility] ([facility]) [address] [place] [address] [place] MAGO CELLS PRESENCE IN BLOOD BY LIGHT MICROSCOPY Rare Abnormal (none) [facility] Comment on above: Performed By: #### L [id number], [id number] #### Wood Car Builder: LACY OROSCO ([phone]) [facility]) [address] [place] [address] [place] EOSINOPHILS (10*3/UL) IN BLOOD-CELLAVISION 0.4 10*3/uL Normal 0.0-0.5 [facility] Comment on above: Performed By: #### L [id number], [id number] #### Wood Car Builder: LACY OROSCO ([phone]) [facility]) [address] [place] [address] [place] EOSINOPHILS TOTAL PER COUNTED LEUKOCYTES BY MANUAL COUNT 3 High 0-1 [facility] Comment on above: Performed By: #### L [id number], [id number] #### Wood Car Builder: LACY OROSCO ([phone]) [facility]) [address] [place] [address] [place] EOSINOPHILS/100 LEUKOCYTES IN BLOOD-CELLAVISION 3 % Normal 0-6 [facility] Comment on above: Performed By: #### L [id number], [id number] #### Wood Car Builder: LACY OROSCO ([phone]) [facility] ([facility]) [address] [place] [address] [place] LYMPHOCYTES (10*3/UL) IN BLOOD-CELLAVISION 1.8 10*3/uL Normal 1.0-4.3 [facility] Comment on above: Performed By: #### L [id number], [id number] #### Wood Car Builder: LACY OROSCO ([phone]) [facility] ([facility]) [address] [place] [address] [place] LYMPHOCYTES TOTAL PER COUNTED LEUKOCYTES BY MANUAL COUNT 13 Normal [facility] Comment on above: Performed By: #### L [id number], [id number] #### Wood Car Builder: LACY OROSCO ([phone]) [facility] ([facility]) [address] [place] [address] [place] LYMPHOCYTES/100 LEUKOCYTES IN BLOOD-CELLAVISION 13 % Low 15-45 [facility] Comment on above: Performed By: #### L [id number], [id number] #### Wood Car Builder: LACY OROSCO ([phone]) [facility] ([facility]) [address] [place] [address] [place] METAMYELOCYTES (10*3/UL) IN BLOOD-CELLAVISION 0.1 10*3/uL High <=0.0 [facility] Comment on above: Performed By: #### L [id number], [id number] #### Wood Car Builder: LACY OROSCO ([phone]) [facility] ([facility]) [address] [place] [address] [place] METAMYELOCYTES TOTAL PER COUNTED LEUKOCYTES BY MANUAL COUNT 1 Normal [facility] Comment on above: Performed By: #### L [id number], [id number] #### Wood Car Builder: LACY OROSCO ([phone]) [facility] ([facility]) [address] [place] [address] [place] METAMYELOCYTES/100 LEUKOCYTES IN BLOOD-CELLAVISION 1 % High <=0 [facility] Comment on above: Performed By: #### L [id number], [id number] #### Wood Car Builder: LACY OROSCO ([phone]) [facility] [address] [place] [address] [place] MONOCYTES (10*3/UL) IN BLOOD-CELLAVISION 0.6 10*3/uL Normal 0.0-0.9 [facility] Comment on above: Performed By: #### L [id number], [id number] #### Wood Car Builder: LACY OROSCO ([phone]) [facility] ([facility]) [address] [place] [address] [place] MONOCYTES TOTAL PER COUNTED LEUKOCYTES BY MANUAL COUNT 4 Normal [facility] Comment on above: Performed By: #### L [id number], [id number] #### Wood Car Builder: LACY OROSCO ([phone]) [facility] ([facility]) [address] [place] [address] [place] MONOCYTES/100 LEUKOCYTES IN BLOOD-SARIKA 4 % Low 5-13 [facility] Comment on above: Performed By: #### L [id number], [id number] #### Wood Car Builder: LACY OROSCO ([phone]) [facility] [address] [place] [address] [place] MYELOCYTES COUNTED BY MANUAL COUNT Normal [facility] Comment on above: Performed By: #### L [id number], [id number] #### Wood Car Builder: LACY OROSCO ([phone]) [facility] ([facility]) [address] [place] [address] [place] NEUTROPHILS BAND FORM/100 LEUKOCYTES IN BLOOD-CELLAVISI 8 % High <=0 [facility] Comment on above: Performed By: #### L [id number], [id number] #### Wood Car Builder: LACY ROOSCO ([phone]) [facility] ([facility]) [address] [place] [address] NEUTROPHILS TOTAL PER COUNTED LEUKOCYTES BY MANUAL COUNT 70 Normal [facility] Comment on above: Performed By: #### L [id number], [id number] #### Wood Car Builder: LACY OROSCO ([phone]) [facility] ([facility]) [address] [place] [address] POIKILOCYTOSIS (PRESENCE) IN BLOOD BY LIGHT MICROSCOPY Rare Abnormal (none) [facility] Comment on above: Performed By: #### L [id number], [id number] #### Wood Car Builder: LACY OROSCO ([phone]) [facility] ([facility]) [address] [place] [address] PROMYELOCYTES TOTAL PER COUNTED LEUKOCYTES BY MANUAL COUNT Normal [facility] Comment on above: Performed By: #### L [id number], [id number] #### Wood Car Builder: LACY OROSCO ([phone]) [facility] ([facility]) [address] [place] [address] RBC MORPHOLOGY IN BLOOD abnormal Normal [facility] Comment on above: Performed By: #### L [id number], [id number] #### Wood Car Builder: LACY OROSCO ([phone]) [facility] ([facility]) [address] [place] [address] [place] SEGMENTED NEUTROPHILS (10*3/UL) IN BLOOD-CELLAVISION 10.9 10*3/uL High 1.8-7.5 [facility] Comment on above: Performed By: #### L [id number], [id number] #### Wood Car Builder: LACY OROSCO ([phone]) [facility] ([facility]) [address] [place] [address] [place] SEGMENTED NEUTROPHILS/100 LEUKOCYTES-CE 71 % Normal 38-82 [facility] Comment on above: Performed By: #### L [id number], [id number] #### Wood Car Builder: LACY OROSCO ([phone]) [facility] ([facility]) [address] [place] [address] UNCLASSIFIED CELLS TOTAL PER COUNTED LEUKOCYTES BY MANUAL COUNT [facility] Comment on above: Performed By: #### L [id number], [id number] #### Wood Car Builder: LACY OROSCO ([phone]) [facility] ([facility]) [address] [place] [address] VARIANT LYMPHOCYTES TOTAL PER COUNTED LEUKOCYTES BY MANUAL COUNT [facility] Comment on above: Performed By: #### L [id number], [id number] #### Wood Car Builder: LACY OROSCO ([phone]) [facility] ([facility]) [address] [place] [address] No Panel InformationOrdered By: Bar Pham on 03-09-2024 Case Report Surgical Pathology C ase: [id number] Authorizing Provider: Jennifer Sung MD Collected: 03/07/2024 1009 Ordering Location: [facility] Endoscopy Received: 03/07/2024 1058 Pathologist: Bar Pham MD Specimen: Gastric Antrum, R/O H Pylori [facility] Work Phone: Clinical Information p2aihKRlZUKpuMCgCCx wMlxhbnN oVDNcvKVvW4HiekoiYAxxGC4rTK 9inEzvrQXluURsUOGiKdFkp5hen 700mOJit0jxJYJFRDtzZPTCVXk6 yAvzO78ag7O6JbdtW4szDDPuNKr vOTUhCGcmaDJpUFg0NSPqxEHpww KqFhDtUUYkrRAwuRA1RJJkCF5ae ihyDRxnIEkqCVWkbhY0KFEmpFOc A9MkCABcNY6qwmmwYGW3UDeePVN qZEX2QyCyFHFsw6Hsfpm8MsRspE FyZFxwbGFpblxmczIwXGNmMSBFc 66tuTBlHLBoOZS6b00bpOsxjKL6 KVMVRoUzTX6kvZVkbK== [facility] Work Phone: Disclaimer v0xqtWVyWEZbqBOpIeVe MDAwXGF vl7ovIFTsoKQcQjGwCaVfUmDsBk uypMYvYYMdZlXjd8exk196iLYck 5ueJPWuKuE9iDNmDJZnP87cCKKK A935LBEfKXxor7xoy7UhFGFvvBH nz8Q4DDFXTNkdTRNEBAz3eNkaF4 4he4T1MtpoN5jfBGDiTXKiT0NaZ A8tRJDhOfo5DIY6IAS2CTGwEKYc E5WaXR0oMACpzPNwMMb8q3iqyMd hXZCaWER8y9rtWWfoviCiXT3tkz 6gyHt4r7mnveKbJXBkMYHlhUUPL BVnZ0KwkNqfGt1xoYf8uZnkBkao YNF1Btt1HY8yto03gzg8jYynVNZ iihghMqX5TPwnSWRygicmUEc1QU yzBXSqaMO2UHQdqKMoW6NlTXJjH K4ehzf2RCN0GXymERDaVcH0ZWCi mUJjACBgdAewKHghe603MHM4UxJ mCO5nL8Ljf8S9jG1vnOEaWYHgxE EvLvSgTILpzc3qsPVtYFhlc5MtS AE4kxF5rMPkdNVrSRSoPP76Mloc g4FxYtrxMRI8BVXuslLwx9Gkn8z jZmZaoyPiY3hnG1IeXQFtNGVbNC OkEsFnccJnv6Uvy0VdfECdiRf5y 0ykIMNaTHNjhUqqa8tqCCK4JEMr Z5D1fQTxk3qwERybLPSnfJX4gqB 0FFQkiKIqR3CfaV8mCJPuPH0aes s2h2rzVTW6NYifNAKaMmW9qlG7F GVwwVUtXCJyaAbhYUmnj591OSH1 FfJpGYUxy6EdQ6SifWylQ74bjWz hL57lZKFsoGuafS2igAwtmJ7yQk BcZnMyNFxxbFxwbGFpblxmMVxmc cF8WMiicrvkEOBjJFelZ9mrOfRo FLJybTklLCtty9DqVORfQPPiAVB mAEwtJ8jfcG7xqxesHEbzPVYueM nwp9ylCiDacKN1KQ5fsuBfKWZtn ZzhndQ0qpUpnBfngM5wsI3vwJwi aV2gsPYpdLC1padjJCvnIYYlxPM pjZtkmbkwpKsgnUkfkqltvO1nKX C1yHClJMC2bRJqTTTwVEDhQFHhv I56iz9quVTmhtOiH0TrS4AmkNIv oVvuOpwloLHcwIBxUt9qaYHcHM1 dMIZgaOAbV1XeWD1yZGZcmitcBX UzFWlzIPUsGVNrWyOvjbHxw0Foa M3bTHEuWHDxRL13hsBjraR5lVXb YWJvdmUgdGVzdHMgaXMgcmVndWx xcSTlTJRoLFIfXMHoEHb6pKAyx7 MrC2puiBCjxbRoD3ImhKGfTIGLF V0oPWgyu0EmqBIluAPtv0ReCHYt GCMuzA2oVTJaBA0gNPQzCRspUCF lhbObxw6zhuEuEXBbABXfG4Ymby iycNexorDnHVJjnf2lyaXeSSE1U HRoZSBjbGluaWNhbCBsYWJvcmF0 o1BsMYIhf0OwU4UmjMHmNMMzlCQ gSNS9e1CofC2nNBcsrRVeHCYnBD 5vdCBiZWVuIGNsZWFyZWQgYnkgd KajCGREBVOyw3CjCZ7kWXZjbUzz AXKfgX4pr4AmLUGnq18dSKQTEOd uIFRoZSBGREEgaGFzIGRldGVybW luZWQgdGhhdCBzdWNoIGNsZWFyY Q0xMCAjynXluDAyg9NlfRPpcdCe b1ZotyGqIPAeRHL9ItXqlTZvCXQ kssMSoGatqH3dzJ3pe5VbcQ8gDN srkyJcrINdIb6ynHJtPO6pYKSll cAsHgfvLYUeFxHePOGnZIAgd2F7 DQ7hGSDmpk3ebdtxdSMvsB6dbIA islMlVP7xDC0mH7M9sCGxWULdrg Twe4imJHp6yQWeDVTvfJThhHFdX creONZ4OUYlDDN5adMbpfKkNLCb lVjziXX7bKQcMKUaWMWqPEDhWP2 3D1Nel8UsL4oeBM13EWPdJKUbWI DjayJhy3anQJNyr3tiRHCznNYqW 9YfHVMxpSQirvepVbLfMBF8OPEu XQX8lDZqMTLzL1BhcBDpvXCgyP5 2GB1djTO2AM1mVLQ6ATvpmT1nGy IMuD25uo5mbBS9h0YkGC7jA7HcQ QTds6P1sjKcUTRuPR1baZWbWBLd IHZhbGlkYXRlZCBvbiBkZWNhbGN fJntaSHK8vDQvwPHyZbRKXRB3yM OuXGGpd9SlLWOrYKFdwbRrvzAsI NOfTMU4oEDwCSDehWRnx25uL6x6 KI5ulRhqASZqnWQjXJOdc6YhoCD pzVv7rKUnQvYrHVxnBWNuVXrhgI d2tVQ2GQ4yEURnT9DdC5azoBMcC DSaOWLtvWZlgj8njCYniN== [facility] Work Phone: [employer] c4tyfFAgSPNegVIvHIrr Fsz8yQC xm7I7osbmAU9abDujmQw5dHvaYW QxqcF5yCPvAYyuy2inOQP4v0qyb vayABZuIDehTj0scWLacIzlAnXs G9Gim1ZxZQu0xT40AMHrlS9ptBP sYHa0MDJqoDIdtiZrImYhYYEeuJ MojPE4LCDeIF0zcjjfCFvcNWcjU DJfwcF5GHSgqSVbO6XvYXZqKF6z womrSHF7NXexLQFpDQS3PkSwFIH ic0Eavlb6FzFkqYJwLYctsUIoes wndxUpFQAuM4ZtvmFxULivJNXwo g2lpZykRMzuLaRwXEDeDghhj7Bx fBIaHM20rjLwDDZly5NxgXmldsF lZIWguXRwCM2pjRjjkvlkEWYqGZ Mga0XzHLLgab3ixJ7xDXIye7C2P ULqauDcqLUraOJzozDqE7cyCgYu azEviNwxFJEuo44cVI0jBMYkOUL rTUOugO7mTYAnBGNrgJFhwJ8mxq XktnKeavZzwkYscSFdoJBxgOO2J DMteG9ww17jAGDkq5WemDGmUaCa XHBhcn0= [facility] Work Phone: Pathologist Interpretation Location [facility], [address] [place] [address], Critical access hospital [id number], CLIA: [id number]; Joint Commission: HCO [id number]; CAP: [id number] [employer] Work Phone: Pathology report final diagnosis Narrative r2umeUYeZWCktETlSEovImlmzuV jZUEywLDbI9OxmflrTCyuFA7nEL 3pqAvwvZMieQGmMHWrHsLyl7mkt 704yHMtw9exERWMVDepFAQQHLn0 vLkyO91jg7B1BcbwG01hiFQsXUD 7DZAdXQYuwIJmPJTxELL7UHVcjH YaW8ilKXWtZM6aahlnRJrlVZglO QLfjYF4FGOklSFyO8StUVNyOCnl JECzbxm4GcVpKs9vtVWkeWpyTZf gJBLiUVAwFXmnTACcYmYgD1ZNGV NQPOhdRP0MXeMDPIYBXR7KA1f4G FxwYXIgLSBDSFJPTklDIElOQUNU GPKTYJvYR9UGUVPWDfsuFdGCMGJ FQhEsVu4CLPjtMGRNNI6NRTVYML JZSoToZ1DLDT4fZNOugzwnVYYoK 47DARCRCRtkDS9yuVafREO9CAan cBJjj2oma2FyE9qiaEvrjQJ3EES tQPQhd0BmLVZlnQ4pF95tTFYkg2 98wy3hWI9nUYYzjOOhSCQrAVNvv AZumiPzsa9kVLSti3JjGPRkPBLx EHGhqdRkXHBuYt5xoJ63azzilHO yVXBcksRkLDXBKdHDDY5SYFIuSG eTEtHjpjPzv21iUXAlpbTqi9huK gYYFFjngJu4MU4hhEClVBNwbo7= [facility] Work Phone: [facility] [employer] Work Phone: No Panel Informationon 03-09 Atypical Lymphocytes Manual [facility] Bands Manual 8 [facility] Basophils Manual [facility] Blasts Manual [facility] Eosinophils Manual 3 High 0 - 1 [facility] Interpretation and review of laboratory results Abnormal [facility] Lymphocytes Manual 13 [facility] Metamyelocytes Manual 1 [facility] Monocytes Manual 4 [facility] Myelocytes Manual [facility] Neutrophils Manual 70 [facility] Promyelocytes Manual [facility] Unclassified Cells, Manual [facility] 30on 03-08-2024 30 Problem: Pain - Adul t Goal: Verbalizes/displays adequate comfort level or baseline comfort level 03/08/20242245 by Neelima Peng RN Outcome: Progressing 03/08/20241910 by Neelima Peng RN Outcome: Progressing Problem: Safety - Adult Goal: Free from fall injury 03/08/20242245 by Neelima Peng RN Outcome: Progressing 03/08/20241910 by Neelima Peng RN Outcome: Progressing Normal [facility] 30 The patient is Moder ately Stable - Low risk of patient condition declining or worsening The patient's goals for the shift include admission and pain control The clinical goals for the shift include admission Normal [facility] 30 Problem: Pain - Adul t Goal: Verbalizes/displays adequate comfort level or baseline comfort level Outcome: Progressing Problem: Safety - Adult Goal: Free from fall injury Outcome: Progressing Problem: Discharge Planning Goal: Discharge to home or other facility with appropriate resources Outcome: Progressing Problem: Chronic Conditions and Co-morbidities Goal: Patient's chronic conditions and co-morbidity symptoms are monitored and maintained or improved Outcome: Progressing Normal [facility] BASIC METABOLIC PANELon 02-15 Anion gap [Moles/Vol] 6 mmol/L Normal 3-13 [facility] Comment on above: Performed By: #### L [id number], [id number] #### [employer]: LACY OROSCO ([phone]) [facility] ([facility]) [address] [place] [address] Calcium [Mass/Vol] 10.0 mg/dL Normal 8.4-10.4 [facility] Comment on above: Performed By: #### L [id number], [id number] #### [employer]: LACY OROSCO ([id number]) [facility] ([facility]) [address] [place] [address] [place] Chloride [Moles/Vol] 103 mmol/L Normal 98-107 [facility] Comment on above: Performed By: #### L [id number], [id number] #### [employer]: LACY OROCSO ([id number]) [facility] [address] [place] [address] [place] CO2 [Moles/Vol] 22 mmol/L Normal 22-30 [facility] Comment on above: Performed By: #### L [id number], [id number] #### [employer]: LACY OROSCO ([phone]) [facility] [address] [place] [address] Creatinine [Mass/Vol] 2.12 mg/dL High 0.52-1.04 [facility] Comment on above: Performed By: #### L AB420, [id number] #### [employer]: LACY OROSCO ([phone]) [facility] ([facility]) [address] [place] [address] [place] GLOMERULAR FILTRATION RATE ML/MIN/1.73 SQ M.PREDICTED 25.4 mL/min/1.73m*2 Low >60.0 [facility] Comment on above: Result Comment: Calc ulation based on the Chronic Kidney Disease Epidemiology Collaboration (CKD-EPI) equation refit without adjustment for race Performed By: #### L AB420, [id number] #### [employer] Builder: LACY OROSCO ([id number]) [facility] [address] [place] [address] [place] Glucose [Mass/Vol] 102 mg/dL High 70-100 [facility] Comment on above: Performed By: #### L [id number], [id number] #### [employer] Builder: LACY OROSCO ([id number]) [facility] ([facility]) [address] [place] [address] [place] Potassium [Moles/Vol] 3.7 mmol/L Normal 3.5-5.1 [facility] Comment on above: Performed By: #### L AB420, [id number] #### [employer] Builder: LACY OROSCO ([phone]) [facility]) [address] [place] [address] [place] Sodium [Moles/Vol] 130 mmol/L Low 135-145 [facility] Comment on above: Performed By: #### L AB420, [id number] #### [employer]: LACY OROSCO ([id number]) [facility]) [facility] [address] Urea nitrogen [Mass/Vol] 54 mg/dL High 7-17 [facility] Comment on above: Performed By: #### L [id number], [id number] #### Wood Car Builder: LACY OROSCO ([phone]) [facility] ([facility]) [address] [place] [address] Basic metabolic 1998 panelon 03-08-2024 Anion gap [Moles/Vol] 6 mmol/L 3 - 13 mmol/L [facility] Calcium [Mass/Vol] 10 mg/dL 8.4 - 10. 4 mg/dL [facility] Chloride [Moles/Vol] 103 mmol/L 98 - 10 7 mmol/L [facility] CO2 [Moles/Vol] 22 mmol/L 22 - 30 mmol/L [facility] Creatinine [Mass/Vol] 2.12 mg/dL High 0.52 - 1.04 mg/dL [facility] GFR/1.73 sq M.predicted (S/P/Bld) [Vol rate/Area] 25.4 mL/min Low - PINF [facility] Comment on above: Calculation based on the Chronic Kidney Disease Epidemiology Collaboration (CKD-EPI) equation refit without adjustment for race Glucose [Mass/Vol] 102 mg/dL High 70 - 100 mg/dL [facility] Interpretation and review of laboratory results Abnormal [facility] Potassium [Moles/Vol] 3.7 mmol/L 3.5 - 5.1 mmol/L [facility] Sodium [Moles/Vol] 130 mmol/L Low 135 - 145 mmol/L [facility] Urea nitrogen [Mass/Vol] 54 mg/dL High 7 - 17 mg/dL [facility] CBC W Auto Differential pane l (Bld)on 03-08-2024 Erythrocyte distribution width (RBC) [Ratio] 15.4 % High 11.5 - 15.0 % [facility] Hematocrit (Bld) [Volume fraction] 34 % Low 35.0 - 47.0 % [facility] Hemoglobin (Bld) [Mass/Vol] 11.1 g/dL Low 11.7 - 16.0 g/dL [facility] Interpretation and review of laboratory results Abnormal [facility] MCH (RBC) [Entitic mass] 25.8 pg Low 26.0 - 34.0 pg [facility] MCHC (RBC) [Mass/Vol] 32.6 % 30.5 - 36.0 % [facility] MCV (RBC) [Entitic vol] 79.1 fL 77.0 - 99.0 fL [facility] Platelet mean volume (Bld) [Entitic vol] 10.5 fL 9.0 - 12.7 fL [facility] Platelets (Bld) [#/Vol] 453 10*3/uL High 140 - 440 10*3/uL [facility] RBC (Bld) [#/Vol] 4.3 10*6/uL 3.80 - 5.20 10*6/uL [facility] WBC (Bld) [#/Vol] 13 10*3/uL High 3.6 - 10.7 10*3/uL [facility] CBC WITH AUTO DIFFERENTIALon 03-08-2024 Erythrocyte distribution width (RBC) [Ratio] 15.4 % High 11.5-15.0 [facility] Comment on above: Performed By: #### L [id number], [id number] ####Wood Car Builder: LACY OROSCO ([phone])[address] Hematocrit (Bld) [Volume fraction] 34.0 % Low 35.0-47.0 [facility] Comment on above: Performed By: #### L [id number], [id number] ####Wood [employer] Builder: LACY OROSCO ([phone])[address] Hemoglobin (Bld) [Mass/Vol] 11.1 g/dL Low 11.7-16.0 [facility] Comment on above: Performed By: #### L [id number], [id number] ####Wood [employer] Builder: LACY OROSCO ([phone])[address] MCH (RBC) [Entitic mass] 25.8 pg Low 26.0-34.0 [facility] Comment on above: Performed By: #### L [id number], [id number] ####Wood Car Builder: LACY [id number])[facility] ([facility])[address] [place] [address] MCHC 32.6 % Normal 30.5-36.0 [facility] Comment on above: Performed By: #### L [id number], [id number] ####Wood [employer] Builder: LACY OROSCO ([phone])[facility] ([facility])[address] [place] [address] MCV (RBC) [Entitic vol] 79.1 fL Normal 77.0-99.0 [facility] Comment on above: Performed By: #### L [id number], [id number] ####Wood [employer] Builder: LACY OROSCO ([phone])[facility])[address] [place] [address] Platelet mean volume (Bld) [Entitic vol] 10.5 fL Normal 9.0-12.7 [facility] Comment on above: Performed By: #### Glory [id number], [id number] ####Wood Car Builder: LACY OROSCO ([phone])[facility] ([facility])[address] [place] [address] Platelets (Bld) [#/Vol] 453 10*3/uL High 140-440 [facility] Comment on above: Performed By: #### L [id number], [id number] ####Wood [employer] Builder: LACY OROSCO ([phone])[facility])[address] [place] [address] RBC (Bld) [#/Vol] 4.30 10*6/uL Normal 3.80-5.20 [facility] Comment on above: Performed By: #### L [id number], [id number] ####Wood Car Builder: LACY OROSCO ([phone])[facility])[address] [place] [address] WBC (Bld) [#/Vol] 13.0 10*3/uL High 3.6-10.7 [facility] Comment on above: Performed By: #### L [id number], [id number] ####Wood Car Builder: LACY OROSCO ([phone])[facility] ([facility])[address] [place] [address] Laboratory - Chemistry and C hemistry - challengeon 03-08-2024 Sodium (24H U) [Mass/Vol] 70 mmol/L 30 - 90 mmol/L [facility] MANUAL DIFFERENTIALon 2023 BAND NEUTROPHILS TOTAL PER COUNTED LEUKOCYTES BY MANUAL COUNT 3 Normal [facility] Comment on above: Performed By: #### L [id number], [id number] ####Wood Car Builder: LACY OROSCO ([phone])[facility] ([facility])[address] [place] [address] BANDS 0.4 10*3/uL High <=0.0 [facility] Comment on above: Performed By: #### L [id number], [id number] ####Wood Car Builder: LACY OROSCO ([phone])[facility])[address] [place] [address] CELLS COUNTED TOTAL (#) IN BLOOD 100 Normal [facility] Comment on above: Performed By: #### L [id number], [id number] ####Wood Car Builder: LACY OROSCO ([phone])[facility])[address] [place] [address] DIFFERENTIAL METHOD Manual differential performed Normal [facility] Comment on above: Performed By: #### L [id number], [id number] ####Wood Car Builder: LACY OROSCO ([phone])[facility])[address] [place] [address] EOSINOPHILS (10*3/UL) IN BLOOD BY MANUAL COUNT 0.4 10*3/uL Normal 0.0-0.5 [facility] Comment on above: Performed By: #### L [id number], [id number] ####Wood Car Builder: LACY OROSCO ([phone])[facility])[address] [place] [address] EOSINOPHILS TOTAL PER COUNTED LEUKOCYTES BY MANUAL COUNT 3 High 0-1 [facility] Comment on above: Performed By: #### L [id number], [id number] ####Wood Car Builder: LACY OROSCO ([phone])[facility] ([facility])[address] [place] [address] [place] EOSINOPHILS/100 LEUKOCYTES IN BLOOD BY MANUAL COUNT 3 % Normal 0-6 [facility] Comment on above: Performed By: #### L [id number], [id number] ####Wood Car Builder: LACY OROSCO ([phone])[facility] [place] [address] [place] LEUKOCYTE MORPHOLOGY FINDING IN BLOOD Normal Normal [facility] Comment on above: Performed By: #### L [id number], [id number] ####Wood Car Builder: LACY OROSCO ([phone])[facility] ([facility])[address] [place] [address] [place] LEUKOCYTES (10*3/UL) NUCLEATED ERYTHROCYTE ADJUST 13.0 10*3/uL High 3.6-10.7 [facility] Comment on above: Performed By: #### L [id number], [id number] ####Wood Car Builder: LACY OROSCO ([phone])[facility] [place] [address] [place] LYMPHOCYTES (10*3/UL) IN BLOOD BY MANUAL COUNT 3.1 10*3/uL Normal 1.0-4.3 [facility] Comment on above: Performed By: #### L [id number], [id number] ####Wood Car Builder: LACY OROSCO ([phone])[facility] ([facility])[address] [place] [address] [place] LYMPHOCYTES TOTAL PER COUNTED LEUKOCYTES BY MANUAL COUNT 24 Normal [facility] Comment on above: Performed By: #### L [id number], [id number] ####Wood Car Builder: LACY OROSCO ([phone])[facility] ([facility])[address] [place] [address] [place] LYMPHOCYTES/100 LEUKOCYTES IN BLOOD BY MANUAL COUNT 24 % Normal 15-45 [facility] Comment on above: Performed By: #### L [id number], [id number] ####Wood Car Builder: LACY OROSCO ([phone])[facility] ([facility])[address] [place] [address] [place] METAMYELOCYTES (10*3/UL) IN BLOOD BY MANUAL COUNT 0.3 10*3/uL High <=0.0 [facility] Comment on above: Performed By: #### L [id number], [id number] ####Wood Car Builder: LACY OROSCO ([phone])[facility] ([facility])[address] [place] [address] [place] METAMYELOCYTES TOTAL PER COUNTED LEUKOCYTES BY MANUAL COUNT 2 Normal [facility] Comment on above: Performed By: #### L [id number], [id number] ####Wood Car Builder: LACY OROSCO ([phone])[facility] ([facility])[address] [place] [address] [place] METAMYELOCYTES/100 LEUKOCYTES IN BLOOD BY MANUAL COUNT 2 % High <=0 [facility] Comment on above: Performed By: #### L [id number], [id number] ####Wood Car Builder: LACY OROSCO ([phone])[facility] ([facility])[address] [place] [address] [place] MONOCYTES (10*3/UL) IN BLOOD BY MANUAL COUNT 1.0 10*3/uL High 0.0-0.9 [facility] Comment on above: Performed By: #### L [id number], [id number] ####Wood Car Builder: LACY OROSCO ([phone])[facility] ([facility])[address] [place] [address] [place] MONOCYTES TOTAL PER COUNTED LEUKOCYTES BY MANUAL COUNT 8 Normal [facility] Comment on above: Performed By: #### L [id number], [id number] ####Wood Car Builder: LACY OROSCO ([phone])[facility] ([facility])[address] [place] [address] [place] MONOCYTES/100 LEUKOCYTES IN BLOOD BY MANUAL COUNT 8 % Normal 5-13 [facility] Comment on above: Performed By: #### L [id number], [id number] ####Wood Car Builder: LACY OROSCO ([phone])[facility] ([facility])[address] [place] [address] [place] MYELOCYTES (10*3/UL) IN BLOOD BY MANUAL COUNT 0.3 10*3/uL High <=0.0 [facility] Comment on above: Performed By: #### Glory [id number], [id number] ####Wood Car Builder: LACY OROSCO ([phone])[facility] ([facility])[address] [place] [address] [place] MYELOCYTES COUNTED BY MANUAL COUNT 2 Normal [facility] Comment on above: Performed By: #### Glory QUINN, [id number] ####Wood Car Builder: LACY OROSCO ([phone])[facility] ([facility])[address] [place] [address] [place] MYELOCYTES/100 LEUKOCYTES IN BLOOD BY MANUAL COUNT 2 % High <=0 [facility] Comment on above: Performed By: #### Glory QUINN, [id number] ####Wood Car Builder: LACY OROSCO ([phone])[facility])[address] [place] [address] [place] NEUTROPHILS (SEGS+BANDS) (10*3/UL) BY MANUAL COUNT 7.9 10*3/uL High 1.8-7.0 [facility] Comment on above: Performed By: #### Glory QUINN, [id number] ####Wood Car Builder: LACY OROSCO ([phone])[facility] ([facility])[address] [place] [address] [place] NEUTROPHILS BAND FORM/100 LEUKOCYTES IN BLOOD BY MANUAL COUNT 3 % High <=0 [facility] Comment on above: Performed By: #### Glory QUINN, [id number] ####Wood Car Builder: LACY OROSCO ([phone])[facility] ([facility])[address] [place] [address] [place] NEUTROPHILS TOTAL PER COUNTED LEUKOCYTES BY MANUAL COUNT 58 Normal [facility] Comment on above: Performed By: #### L [id number], [id number] ####Wood Car Builder: LACY OROSCO ([phone])[facility] ([facility])[address] [place] [address] [place] OVALOCYTES PRESENCE IN BLOOD BY LIGHT MICROSCOPY Rare Abnormal (none) [facility] Comment on above: Performed By: #### L [id number], [id number] ####Wood Car Builder: LACY OROSCO ([phone])[facility])[address] [place] [address] PLATELET MORPHOLOGY IN BLOOD Normal Normal [facility] Comment on above: Performed By: #### L [id number], [id number] ####Wood Car Builder: LACY OROSCO ([phone])[facility])[address] [place] [address] POIKILOCYTOSIS (PRESENCE) IN BLOOD BY LIGHT MICROSCOPY Rare Abnormal (none) [facility] Comment on above: Performed By: #### L [id number], [id number] ####Wood Car Builder: LACY OROSCO ([phone])[facility])[address] [place] [address] SEGEMENTED NEUTROPHILS/100 LEUKOCYTES BY MANUAL COUNT 58 % Normal 38-82 [facility] Comment on above: Performed By: #### L [id number], [id number] ####Wood Car Builder: LACY OROSCO ([phone])[facility] ([facility])[address] [place] [address] SEGMENTED NEUTROPHILS (10*3/UL)IN BLOOD BY MANUAL COUNT 7.9 10*3/uL High 1.8-7.5 [facility] Comment on above: Performed By: #### L [id number], [id number] ####Wood Car Builder: LACY OROSCO ([phone])[facility] ([facility])[address] [place] [address] Manual differential performe d Ql (Bld)on 03-08-2024 Band form neutrophils (Bld) [#/Vol] 0.4 10*3/uL High NINF - 0.0 10*3/uL [facility] Band form neutrophils/100 WBC (Bld) 3 % High NINF - 0 % [facility] Bands Manual 3 [facility] Cells Counted Total (Bld) [#] 100 {cells} [facility] [employer] Differential Method Manual differential performed [facility] Eosinophils (Bld) [#/Vol] 0.4 10*3/uL 0.0 - 0.5 10*3/uL [facility] Eosinophils Manual 3 High 0 - 1 [facility] Eosinophils/100 WBC (Bld) 3 % 0 - 6 % [facility] Interpretation and review of laboratory results Abnormal [facility] Leukocyte morphology finding Nom (Bld) Normal [facility] Lymphocytes (Bld) [#/Vol] 3.1 10*3/uL 1.0 - 4.3 10*3/uL [facility] Lymphocytes Manual 24 [facility] Lymphocytes/100 WBC (Bld) 24 % 15 - 45 % [facility] Metamyelocytes (Bld) [#/Vol] 0.3 10*3/uL High NINF - 0.0 10*3/uL [facility] Metamyelocytes Manual 2 [facility] Metamyelocytes/100 WBC (Bld) 2 % High NINF - 0 % [facility] Monocytes (Bld) [#/Vol] 1 10*3/uL High 0.0 - 0.9 10*3/uL [facility] Monocytes Manual 8 [facility] Monocytes/100 WBC (Bld) 8 % 5 - 13 % [facility] Myelocytes (Bld) [#/Vol] 0.3 10*3/uL High NINF - 0.0 10*3/uL [facility] Myelocytes Manual 2 [facility] Myelocytes/100 WBC (Bld) 2 % High NINF - 0 % [facility] Neutrophils (Bld) [#/Vol] 7.9 10*3/uL High 1.8 - 7.5 10*3/uL [facility] Neutrophils Manual 58 [facility] Ovalocytes LM Ql (Bld) Rare Abnormal (none) [facility] Platelet morphology finding Nom (Bld) Normal [facility] Poikilocytosis LM Ql (Bld) Rare Abnormal (none) [facility] Segmented neutrophils/100 WBC (Bld) 58 % 38 - 82 % [facility] WBC corrected for nucl RBC (Bld) [#/Vol] 13 10*3/uL High 3.6 - 10.7 10*3/uL [facility] No Panel Informationon 03-08 Interpretation and review of laboratory results Normal [facility] No Panel InformationOrdered By: Jah Galloway on 03-08-2024 Interpretation and review of laboratory results Normal [facility] OSMOLALITY, URINE 423 [facility] Nursing Noteon 03-08-2024 Nursing Note Pt asked if she coul d go to the bathroom by herself. I advised that she is still a high fall risk and we want her to please use the call light for help to get up to the bathroom. Pt verbalized understanding. Normal [facility] OSMOLALITY, URINEon 03-08-20 24 OSMOLALITY, URINE 423 mOsm/kg Normal 300-1000 [facility] Comment on above: Performed By: #### L [id number], [id number] #### Wood Car Builder: LACY OROSCO ([phone]) [facility] ([facility]) [address] [place] [address] Progress Noteon 03-08-2024 Progress Note ------- Attestation signed by Pepito Steve MD at 03/08/2024 2:49 PM Notes reviewed and plan discussed with the PA. Agree with above note except Any variance is noted below. Pepito Steve MD [facility] [phone] [facility] Nephrology Progress Note Subjective/ 63 y.o. year old female who we are seeing in consultation for hypotension. Sitting up in bed, at bedside Blood pressure is improved Edema is absent Dowd is absent, denies issues with UOP Appetite slowly improving No other new issues at this time ROS Dysphagia Denies chest pain, shortness of breath, Nausea, vomiting , diarrhea, fever or chills. No interval changes to [facility]. All interval notes/labs/imaging reviewed. Objective/ Vitals: 03/07/24 1117 03/07/24200603/08/24 0032 03/08/24 0443 BP: 107/70 109/71 135/98 133/94 BP Location: Patient Position: Pulse: 97 101 102 98 Resp: 16 16 18 18 Temp: 36.1 ?C (96.9 ?F) 36.5 ?C (97.7 ?F) 36.1 ?C (96.9 ?F) (!) 35.8 ?C (96.5 ?F) TempSrc: Temporal Temporal Temporal Temporal SpO2: 94% 98% 97% 98% Weight: Height: 24HR INTAKE/OUTPUT: Intake/Output Summary (Last 24 hours) at 03/08/2024 0811 Last data filed at 03/07/2024 1640 Gross per 24 hour Intake 1150 ml Output -- Net 1150 ml Physical Exam HENT: Head: Normocephalic and atraumatic. Mouth/Throat: Mouth: Mucous membranes are moist. Eyes: General: No scleral icterus. Pupils: Pupils are equal, round, and reactive to light. Cardiovascular: Rate and Rhythm: Normal rate and regular rhythm. Pulmonary: Effort: Pulmonary effort is normal. Breath sounds: Normal breath sounds. Abdominal: General: Bowel sounds are normal. Palpations: Abdomen is soft. Musculoskeletal: Cervical back: Neck supple. Right lower leg: No edema. Left lower leg: No edema. Skin: General: Skin is warm and dry. Neurological: Mental Status: She is alert and oriented to person, place, and time. Psychiatric: Mood and Affect: Mood normal. Scheduled Meds:amitriptyline, 50 mg, Oral, Nightly [Held by provider] aspirin, 81 mg, Oral, Daily Calcium Carb-Cholecalciferol, 1 tablet, Oral, BID cefTRIAXone, 1,000 mg, IntraVENous, q24h fluconazole, 200 mg, Oral, Daily fludrocortisone, 0.1 mg, Oral, BID heparin, 5,000 Units, SubCUTAneous, 3 times per day influenza, 0.5 mL, IntraMUSCular, Once levothyroxine, 100 mcg, Oral, qAM AC melatonin, 3 mg, Oral, Nightly [Held by provider] mycophenolate, 1,000 mg, Oral, q AM [Held by provider] mycophenolate, 500 mg, Oral, qPM pantoprazole (ProtoNix) 40 mg in sodium chloride (PF) 0.9 % 10 mL injection, 40 mg, IntraVENous, q12h predniSONE, 5 mg, Oral, Daily sodium chloride 0.9%, 5-40 mL, IntraVENous, q12h Continuous Infusions:sodium bicarbonate 150 mEq in dextrose 5 % 1,000 mL infusion, 100 mL/hr, Last Rate: 100 mL/hr (03/07/24 1640) PRN Meds:.PRN medications: acetaminophen OR acetaminophen, naloxone, polyethylene glycol (PEG) 3350, promethazine, sodium chloride, sodium chloride 0.9%, sucralfate Data/ Recent Labs 03/06/24 0523 03/07/24 0140 03/08/24 0531 WBC 11.2* 19.0* 13.0* HGB 12.2 12.9 11.1* HCT 36.8 40.2 34.0* MCV 77.8 80.7 79.1 PLT 462* 548* 453* Recent Labs 03/06/24 0523 03/07/24 0140 03/08/24 0531 NA 132* 133* 130* K 4.5 4.0 3.7 CL 105 105 103 CO2 16* 15* 22 GLUCOSE 139* 117* 102* BUN 60* 55* 54* CREATININE 2.42* 2.35* 2.12* Assessment/ Hypotension (I95.9) MANJIT on CKD3b (N17.9, N18.32) NAGMA, acute (E87.21) Hyponatremia Mild bilateral hydronephrosis s/p bl stent placement (N13.2) Esophagitis Dysphagia Plan/ -BP improving on fludrocortisone 0.1 mg BID, c/w same -Metabolic acidosis resolved on isotonic bicarb gtt, discontinue after this bag -Na level trending down, check urine studies -Start on modest oral fluid restriction -Patient encouraged to increase po intake of solutes/protein -Scr slowly improving, baseline ~ 1.6-1.7, cont to trend -IV abx for UTI per primary: on ceftriaxone -Rest of management per primary team We will follow. Please do not hesitate to call with any questions or concerns. Deepika Rivera, [facility], PA-C [facility] Office This note is not finalized until authorized by Attending physician. Normal [facility] SODIUM, URINE, RANDOMon 10-2 Sodium (U) [Moles/Vol] 70 mmol/L Normal 30-90 [facility] Comment on above: Performed By: #### L [id number], [id number] #### Wood Car Builder: LACY OROSCO ([phone]) [facility] ([facility]) [address] [place] [address] 30on 03-07-2024 30 Problem: Pain - Adul t Goal: Verbalizes/displays adequate comfort level or baseline comfort level Outcome: Progressing Problem: Safety - Adult Goal: Free from fall injury Outcome: Progressing Problem: Discharge Planning Goal: Discharge to home or other facility with appropriate resources Outcome: Progressing Problem: Chronic Conditions and Co-morbidities Goal: Patient's chronic conditions and co-morbidity symptoms are monitored and maintained or improved Outcome: Progressing Normal [facility] 30 Problem: Pain - Adul t Goal: Verbalizes/displays adequate comfort level or baseline comfort level Outcome: Progressing Problem: Safety - Adult Goal: Free from fall injury Outcome: Progressing Problem: Discharge Planning Goal: Discharge to home or other facility with appropriate resources Outcome: Progressing Problem: Chronic Conditions and Co-morbidities Goal: Patient's chronic conditions and co-morbidity symptoms are monitored and maintained or improved Outcome: Progressing Normal [facility] 36on 03-07-2024 36 Patient evaluated inpatient, needs repeat EGD in 8 weeks. Not established, patient lives in [place], please call and see if she would like to follow up with us and if not send records to her preferred follow up physician. Normal [facility] BASIC METABOLIC PANEL 02-15 Anion gap [Moles/Vol] 13 mmol/L Normal 3-13 [facility] Comment on above: Performed By: #### L AB15 ####Wood Car Builder: LACY OROSCO ([phone])[facility] ([facility])[address] [place] [address] Calcium [Mass/Vol] 10.6 mg/dL High 8.4-10.4 [facility] Comment on above: Performed By: #### L AB15 ####Wood Car Builder: LACY OROSCO ([phone])[facility] ([facility])[address] [place] [address] Chloride [Moles/Vol] 105 mmol/L Normal 98-107 [facility] Comment on above: Performed By: #### L AB15 ####Wood Car Builder: LACY OROSCO ([phone])[facility])[address] [place] [address] CO2 [Moles/Vol] 15 mmol/L Low 22-30 [facility] Comment on above: Performed By: #### L AB15 ####Wood Car Builder: LACY OROSCO ([phone])[facility])[address] [place] [address] Creatinine [Mass/Vol] 2.35 mg/dL High 0.52-1.04 [facility] Comment on above: Performed By: #### L AB15 ####Wood Car Builder: LACY OROSCO ([phone])[facility])[address] [place] [address] GLOMERULAR FILTRATION RATE ML/MIN/1.73 SQ M.PREDICTED 22.5 mL/min/1.73m*2 Low >60.0 [facility] [facility] Comment on above: Result Comment: Calc ulation based on the Chronic Kidney Disease Epidemiology Collaboration (CKD-EPI) equation refit without adjustment for race Performed By: #### L [id number] ####Wood Car Builder: LACY OROSCO ([phone])[facility])[address] [place] [address] Glucose [Mass/Vol] 117 mg/dL High 70-100 [facility] Comment on above: Performed By: #### L [id number] ####Wood Car Builder: LACY OROSCO ([phone])[facility])[address] [place] [address] Potassium [Moles/Vol] 4.0 mmol/L Normal 3.5-5.1 [facility] Comment on above: Performed By: #### L [id number] ####Wood Car Builder: LACY OROSCO ([phone])[facility])[address] [place] [address] [place] Sodium [Moles/Vol] 133 mmol/L Low 135-145 [facility] Comment on above: Performed By: #### L [id number] ####Wood Car Builder: LACY OROSCO ([phone])[address] Urea nitrogen [Mass/Vol] 55 mg/dL High 7-17 [facility] Comment on above: Performed By: #### L [id number] ####Wood Car Builder: LACY OROSCO ([phone])[address] Basic metabolic 1998 panelon 03-07-2024 Anion gap [Moles/Vol] 13 mmol/L 3 - 13 mmol/L [facility] Calcium [Mass/Vol] 10.6 mg/dL High 8.4 - 10. 4 mg/dL [facility] Chloride [Moles/Vol] 105 mmol/L 98 - 10 7 mmol/L [facility] CO2 [Moles/Vol] 15 mmol/L Low 22 - 30 mmol/L [facility] Creatinine [Mass/Vol] 2.35 mg/dL High 0.52 - 1.04 mg/dL [facility] GFR/1.73 sq M.predicted (S/P/Bld) [Vol rate/Area] 22.5 mL/min Low - PINF [facility] Comment on above: Calculation based on the Chronic Kidney Disease Epidemiology Collaboration (CKD-EPI) equation refit without adjustment for race Glucose [Mass/Vol] 117 mg/dL High 70 - 100 mg/dL [facility] Interpretation and review of laboratory results Abnormal [facility] Potassium [Moles/Vol] 4 mmol/L 3.5 - 5.1 mmol/L [facility] Sodium [Moles/Vol] 133 mmol/L Low 135 - 145 mmol/L [facility] Urea nitrogen [Mass/Vol] 55 mg/dL High 7 - 17 mg/dL [facility] CBC W Auto Differential pane l (Bld)Ordered By: Dwayne Gibson on 03-07-2024 Erythrocyte distribution width (RBC) [Ratio] 15.4 % High 11.5 - 15.0 % [facility] Hematocrit (Bld) [Volume fraction] 40.2 % 35.0 - 47.0 % [facility] Hemoglobin (Bld) [Mass/Vol] 12.9 g/dL 11.7 - 16.0 g/dL [facility] Interpretation and review of laboratory results Abnormal [facility] MCH (RBC) [Entitic mass] 25.9 pg Low 26.0 - 34.0 pg [facility] MCHC (RBC) [Mass/Vol] 32.1 % 30.5 - 36.0 % [facility] MCV (RBC) [Entitic vol] 80.7 fL 77.0 - 99.0 fL [facility] Platelet mean volume (Bld) [Entitic vol] 11.3 fL 9.0 - 12.7 fL [facility] Platelets (Bld) [#/Vol] 548 10*3/uL High 140 - 440 10*3/uL [facility] RBC (Bld) [#/Vol] 4.98 10*6/uL 3.80 - 5.20 10*6/uL [facility] WBC (Bld) [#/Vol] 19 10*3/uL High 3.6 - 10.7 10*3/uL [facility] CBC WITH AUTO DIFFERENTIALon 03-07-2024 Erythrocyte distribution width (RBC) [Ratio] 15.4 % High 11.5-15.0 [facility] Comment on above: Performed By: #### L [id number], [id number] ####Wood Car Builder: LACY OROSCO ([phone])[facility])[address] [place] [address] Hematocrit (Bld) [Volume fraction] 40.2 % Normal 35.0-47.0 [facility] Comment on above: Performed By: #### L [id number], [id number] ####Wood Car Builder: LACY OROSCO ([phone])[facility] ([facility])[address] [place] [address] Hemoglobin (Bld) [Mass/Vol] 12.9 g/dL Normal 11.7-16.0 [facility] Comment on above: Performed By: #### L [id number], [id number] ####Wood Car Builder: LACY OROSCO ([phone])[facility])[address] [place] [address] MCH (RBC) [Entitic mass] 25.9 pg Low 26.0-34.0 [facility] Comment on above: Performed By: #### L [id number], [id number] ####Wood Car Builder: LACY OROSCO ([phone])[facility])[address] [place] [address] MCHC 32.1 % Normal 30.5-36.0 [facility] Comment on above: Performed By: #### L [id number], [id number] ####Wood Car Builder: LACY OROSCO ([phone])[facility] ([facility])[address] [place] [address] MCV (RBC) [Entitic vol] 80.7 fL Normal 77.0-99.0 [facility] Comment on above: Performed By: #### L [id number], [id number] ####Wood Car Builder: LACY OROSCO ([phone])[facility])[address] [place] [address] Platelet mean volume (Bld) [Entitic vol] 11.3 fL Normal 9.0-12.7 [facility] Comment on above: Performed By: #### Glory [id number], [id number] ####Wood Car Builder: LACY OROSCO ([phone])[facility])[address] [place] [address] Platelets (Bld) [#/Vol] 548 10*3/uL High 140-440 [facility] Comment on above: Performed By: #### L [id number], [id number] ####Wood Car Builder: LACY OROSCO ([phone])[facility])[address] [place] [address] RBC (Bld) [#/Vol] 4.98 10*6/uL Normal 3.80-5.20 [facility] Comment on above: Performed By: #### L [id number], [id number] ####Wood Car Builder: LACY OROCSO ([phone])[facility])[address] [place] [address] WBC (Bld) [#/Vol] 19.0 10*3/uL High 3.6-10.7 [facility] Comment on above: Performed By: #### L [id number], [id number] ####Wood Car Builder: LACY OROSCO ([phone])[facility] ([facility])[address] [place] [address] Laboratory - Hematology and Cell countson 03-07-2024 Anisocytosis Ql (Bld) Slight Abnormal (none) [facility] Band form neutrophils (Bld) [#/Vol] 1.1 10*3/uL High NINF - 0.0 10*3/uL [facility] Band form neutrophils/100 WBC (Bld) 6 % High NINF - 0 % [facility] Basophils (Bld) [#/Vol] 0.2 10*3/uL 0.0 - 0.2 10*3/uL [facility] Basophils/100 WBC (Bld) 1 % 0 - 2 % [facility] Camilla cells LM Ql (Bld) Moderate Abnormal (none) [facility] Mago cells LM Ql (Bld) Rare Abnormal (none) [facility] Lymphocytes (Bld) [#/Vol] 2.5 10*3/uL 1.0 - 4.3 10*3/uL [facility] Lymphocytes/100 WBC (Bld) 13 % Low 15 - 45 % [facility] Macrocytes Ql (Bld) Slight Abnormal (none) [facility] Microcytes Ql (Bld) Slight Abnormal (none) [facility] Monocytes (Bld) [#/Vol] 1 10*3/uL High 0.0 - 0.9 10*3/uL [facility] Monocytes/100 WBC (Bld) 5 % 5 - 13 % [facility] Myelocytes (Bld) [#/Vol] 0.2 10*3/uL High NINF - 0.0 10*3/uL [facility] Myelocytes/100 WBC (Bld) 1 % High NINF - 0 % [facility] Neutrophils (Bld) [#/Vol] 15.4 10*3/uL High 1.8 - 7.5 10*3/uL [facility] Poikilocytosis LM Ql (Bld) Moderate Abnormal (none) [facility] Polychromasia LM Ql (Bld) Slight Abnormal (none) [facility] RBC morphology finding Nom (Bld) abnormal [facility] Segmented neutrophils/100 WBC (Bld) 75 % 38 - 82 % [facility] MANUAL DIFFERENTIAL (CELLAVI DARIUSZ)on 03-07-2024 ACANTHOCYTES (PRES[place]) IN BLOOD BY LIGHT MICROSCOPY Rare Abnormal (none) [facility] Comment on above: Performed By: #### L [id number], [id number] ####Wood Car Builder: LACY OROSCO ([phone])[facility] ([facility])[address] [place] [address] ANISOCYTOSIS PRES[place] IN BLOOD BY LIGHT MICROSCOPY Slight Abnormal (none) [facility] Comment on above: Performed By: #### L [id number], [id number] ####Wood Car Builder: LACY OROSCO ([phone])[facility] ([facility])[address] [place] [address] BAND NEUTROPHILS TOTAL PER COUNTED LEUKOCYTES BY MANUAL COUNT 6 Normal [facility] Comment on above: Performed By: #### L [id number], [id number] ####Wood Car Builder: LACY OROSCO ([phone])[facility] ([facility])[address] [place] [address] [place] BANDS (10*3/UL) IN BLOOD-CELLAVISION 1.1 10*3/uL High <=0.0 [facility] Comment on above: Performed By: #### L [id number], [id number] ####Wood Car Builder: LACY OROSCO ([phone])[facility] ([facility])[address] [place] [address] [place] BASOPHILS (10*3/UL) IN BLOOD-CELLAVISION 0.2 10*3/uL Normal 0.0-0.2 [facility] Comment on above: Performed By: #### L [id number], [id number] ####Wood Car Builder: LACY OROSCO ([phone])[facility] ([facility])[address] [place] [address] [place] BASOPHILS TOTAL PER COUNTED LEUKOCYTES BY MANUAL COUNT 1 Normal [facility] Comment on above: Performed By: #### L [id number], [id number] ####Wood Car Builder: LACY OROSCO ([phone])[facility] ([facility])[address] [place] [address] [place] BASOPHILS/100 LEUKOCYTES IN BLOOD-CELLAVISION 1 % Normal 0-2 [facility] Comment on above: Performed By: #### L [id number], [id number] ####Wood Car Builder: LACY OROSCO ([phone])[facility] ([facility])[address] [place] [address] [place] BLASTS TOTAL PER COUNTED LEUKOCYTES BY MANUAL COUNT Normal [facility] Comment on above: Performed By: #### L [id number], [id number] ####Wood Car Builder: LACY OROSCO ([phone])[facility] ([facility])[address] [place] [address] MAGO CELLS PRES[place] IN BLOOD BY LIGHT MICROSCOPY Moderate Abnormal (none) [facility] Comment on above: Performed By: #### L [id number], [id number] ####Wood Car Builder: LACY OROSCO ([phone])[facility] ([facility])[address] [place] [address] [place] EOSINOPHILS TOTAL PER COUNTED LEUKOCYTES BY MANUAL COUNT Normal [facility] Comment on above: Performed By: #### L [id number], [id number] ####Wood Car Builder: LACY OROSCO ([phone])[facility] ([facility])[address] [place] [address] [place] LYMPHOCYTES (10*3/UL) IN BLOOD-CELLAVISION 2.5 10*3/uL Normal 1.0-4.3 [facility] Comment on above: Performed By: #### L [id number], [id number] ####Wood Car Builder: LACY OROSCO ([phone])[facility] ([facility])[address] [place] [address] [place] LYMPHOCYTES TOTAL PER COUNTED LEUKOCYTES BY MANUAL COUNT 13 Normal [facility] Comment on above: Performed By: #### L [id number], [id number] ####Wood Car Builder: LACY OROSCO ([phone])[facility] ([facility])[address] [place] [address] [place] LYMPHOCYTES/100 LEUKOCYTES IN BLOOD-CELLAVISION 13 % Low 15-45 [facility] Comment on above: Performed By: #### L [id number], [id number] ####Wood Car Builder: LACY OROSCO ([phone])[facility] ([facility])[address] [place] [address] [place] MACROCYTES (PRES[place]) IN BLOOD BY LIGHT MICROSCOPY Slight Abnormal (none) [facility] Comment on above: Performed By: #### L [id number], [id number] ####Wood Car Builder: LACY OROSCO ([phone])[facility] ([facility])[address] [place] [address] [place] METAMYELOCYTES TOTAL PER COUNTED LEUKOCYTES BY MANUAL COUNT Normal [facility] Comment on above: Performed By: #### L [id number], [id number] ####Wood Car Builder: LACY OROSCO ([phone])[facility] ([facility])[address] [place] [address] [place] MICROCYTES (PRES[place]) IN BLOOD BY LIGHT MICROSCOPY Slight Abnormal (none) [facility] Comment on above: Performed By: #### L [id number], [id number] ####Wood Car Builder: LACY OROSCO ([phone])[facility] ([facility])[address] [place] [address] [place] MONOCYTES (10*3/UL) IN BLOOD-CELLAVISION 1.0 10*3/uL High 0.0-0.9 [facility] Comment on above: Performed By: #### L [id number], [id number] ####Wood Car Builder: LACY OROSCO ([phone])[facility] ([facility])[address] [place] [address] [place] MONOCYTES TOTAL PER COUNTED LEUKOCYTES BY MANUAL COUNT 5 Normal [facility] Comment on above: Performed By: #### L [id number], [id number] ####Wood Car Builder: LACY OROSCO ([phone])[facility] ([facility])[address] [place] [address] [place] MONOCYTES/100 LEUKOCYTES IN BLOOD-SARIKA 5 % Normal 5-13 [facility] Comment on above: Performed By: #### L [id number], [id number] ####Wood Car Builder: LACY OROSCO ([phone])[facility] ([facility])[address] [place] [address] [place] MYELOCYTES (10*3/UL) IN BLOOD-CELLAVISION 0.2 10*3/uL High <=0.0 [facility] Comment on above: Performed By: #### L [id number], [id number] ####Wood Car Builder: LACY OROSCO ([phone])[facility] ([facility])[address] [place] [address] [place] MYELOCYTES COUNTED BY MANUAL COUNT 1 Normal [facility] Comment on above: Performed By: #### L [id number], [id number] ####Wood Car Builder: LACY OROSCO ([phone])[facility] ([facility])[address] [place] [address] [place] MYELOCYTES/100 LEUKOCYTES IN BLOOD-CELLAVISION 1 % High <=0 [facility] Comment on above: Performed By: #### L [id number], [id number] ####Wood Car Builder: LACY OROSCO ([phone])[facility] ([facility])[address] [place] [address] [place] NEUTROPHILS BAND FORM/100 LEUKOCYTES IN BLOOD-CELLAVISI 6 % High <=0 [facility] Comment on above: Performed By: #### L [id number], [id number] ####Wood Car Builder: LACY OROSCO ([phone])[facility] ([facility])[address] [place] [address] [place] NEUTROPHILS TOTAL PER COUNTED LEUKOCYTES BY MANUAL COUNT 76 Normal [facility] Comment on above: Performed By: #### L [id number], [id number] ####Wood Car Builder: LACY OROSCO ([phone])[facility] ([facility])[address] [place] [address] [place] POIKILOCYTOSIS ([place]) IN BLOOD BY LIGHT MICROSCOPY Moderate Abnormal (none) [facility] Comment on above: Performed By: #### L [id number], [id number] ####Wood Car Builder: LACY OROSCO ([phone])[facility] ([facility])[address] [place] [address] POLYCHROMASIA IN BLOOD BY LIGHT MICROSCOPY Slight Abnormal (none) [facility] Comment on above: Performed By: #### L [id number], [id number] ####Wood Car Builder: LACY OROSCO ([phone])[facility] ([facility])[address] [place] [address] PROMYELOCYTES TOTAL PER COUNTED LEUKOCYTES BY MANUAL COUNT Normal [facility] Comment on above: Performed By: #### L [id number], [id number] ####Wood Car Builder: LACY OROSCO ([phone])[facility] ([facility])[address] [place] [address] RBC MORPHOLOGY IN BLOOD abnormal Normal [facility] Comment on above: Performed By: #### L [id number], [id number] ####Wood Car Builder: LACY OROSCO ([phone])[facility] ([facility])[address] [place] [address] SEGMENTED NEUTROPHILS (10*3/UL) IN BLOOD-CELLAVISION 15.4 10*3/uL High 1.8-7.5 [facility] Comment on above: Performed By: #### L [id number], [id number] ####Wood Car Builder: LACY OROSCO ([phone])[facility] ([facility])[address] [place] [address] [place] SEGMENTED NEUTROPHILS/100 LEUKOCYTES-CE 75 % Normal 38-82 [facility] Comment on above: Performed By: #### L [id number], [id number] ####Wood Car Builder: LACY OROSCO ([phone])[facility] ([facility])[address] [place] [address] UNCLASSIFIED CELLS TOTAL PER COUNTED LEUKOCYTES BY MANUAL COUNT Normal [facility] Comment on above: Performed By: #### L [id number], [id number] ####Wood Car Builder: LACY OROSCO ([phone])[facility] ([facility])[address] [place] [address] [place] VARIANT LYMPHOCYTES TOTAL PER COUNTED LEUKOCYTES BY MANUAL COUNT Normal [facility] Comment on above: Performed By: #### L [id number], [id number] ####Wood Car Builder: LACY OROSCO ([phone])[facility] ([facility])[address] [place] [address] No Panel Informationon 03-07 Atypical Lymphocytes Manual [facility] Bands Manual 6 [facility] Basophils Manual 1 [facility] Blasts Manual [facility] Eosinophils Manual [facility] Interpretation and review of laboratory results Abnormal [facility] Lymphocytes Manual 13 [facility] Metamyelocytes Manual [facility] Monocytes Manual 5 [facility] Myelocytes Manual 1 [facility] Neutrophils Manual 76 [facility] Promyelocytes Manual [facility] Unclassified Cells, [facility] Progress Noteon 03-07-2024 Progress Note NEUROLOGY FOLLOW UP NOTE - Neurology Inpatient Service Patient Name: Eren Merchant Patient : 1960 Acct: [id number] Date of Admission: 03/04/2024 Room/Bed: [facility] A PCP: Priyanka Smith 03/07/2024 Subjective: The patient is 63 y.o. female -- who is being seen for a follow visit re: seizure like activity. 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 Patient has had two recent episodes which prompted her transfer to [facility] for further workup. On 02/26/24, patient was talking to her dad on the phone. The next thing she remembers is lying on the ground. She believes she had LOC but does not know duration. Estimates less than one minute. She had another episode while at the urologist's office on 03/03/24. She walked up to call center receptionist desk, all of a sudden both arms started shaking, she felt weak, and next thing she knew she wason the ground. Witnesses stated patient had full body shaking. No acute overnight events. Review of systems: General: No reported chills, no fever, no obesity. HEENT: No reported headache, no head injury. No reported eye pain or eye congestion. No reported ear pain or ear congestion. No reported nasal congestion or nosebleed. No reported throat congestion or infection. Neck: No reported neck pain. No reported neck stiffness. Respiratory: No reported wheezing and no reported shortness of breath. Cardiac: No reported chest pain and no reported palpitations. Gastrointestinal: No reported nausea, vomiting, abdominal pain and, no reported diarrhea. Musculoskeletal: No reported arthralgia and, no reported low back pain. Endocrine: No reported thyroid disease. No reported type 1 or type 2 diabetes mellitus. Psychiatry: No reported anxiety and no reported depression. Neurological: Reports alteration in mental state. No reported weakness in extremities. No reported speech deficit. Reports seizure like activity. No reported tongue bite or loss of bowel/bladder control. No reported stroke. No reported visual changes. No reported vertigo. No reported hearing loss. No reported gait or ambulatory decline. Past medical History, surgical history, family history and social history were reviewed with the patient/care provider and were reviewed in the chart. Only the available information is documented below. Thank you. Past Medical History: Past Medical History: Diagnosis Date Arthritis Cancer (CMS/HCC) (HCC) Disease of thyroid gland Past Surgical History: Past Surgical History: Procedure Laterality Date BACK SURGERY CHOLECYSTECTOMY COLON SURGERY THYMECTOMY stated per patient, for cancer removal Family History: No family history on file. Social History: TOBACCO: reports that she has never smoked. She has never used smokeless tobacco. ETOH: reports no history of alcohol use. RECREATIONAL DRUG USE: Social History Substance and Sexual Activity Drug Use Never The patient's medications and allergies were reviewed and the available information is documented below. Thank you. Allergies: Azithromycin and Seasonal Home Medications: Prior to Admission medications Medication Sig Start Date End Date Taking? Authorizing Provider Calcium Carb-Cholecalciferol 600-10 MG-MCG tablet Take 1 tablet by mouth in the morning and 1 tablet in the evening. 02/25/23 Yes Historical Provider, ondansetron (Zofran) 4 MG tablet Take 4 mg by mouth every 8 hours as needed for nausea or vomiting. New prescription, unsure of times or dose Yes Historical Provider, amitriptyline (Elavil) 75 MG tablet Take 75 mg by mouth Nightly. AVS from 03/03 from [facility] with Dr. Benitez states: discontinue the elavil for now - we will taper it down. Take 50 mg 4-5 days, then take 25 mg for 4-5 days then stop. Historical Provider, Apoaequorin (Prevagen) 10 MG capsule Take 10 mg by mouth daily. Historical Provider, aspirin 81 MG EC tablet Take 81 mg by mouth in the morning. Historical Provider, biotin 5000 MCG capsule Take 5,000 mcg by mouth daily. OTC per patient Historical Provider, levothyroxine (Synthroid, Levoxyl) 75 MCG tablet Take 75 mcg by mouth every morning (before breakfast). Historical Provider, mycophenolate (Cellcept) 500 MG tablet Take 1,000 mg by mouth 2 times daily. 1000 mg in morning and 500 at night per patient Historical Provider, predniSONE (Deltasone) 5 MG tablet Take 5 mg by mouth daily. Historical Provider, Calcium Carbonate-Vitamin D 500-5 MG-MCG tablet Take 5 mg by mouth in the morning and 5 mg in the evening. 03/04/24 Historical Provider, Current Ho (more content not included)... Normal [facility] 36on 03-06-2024 36 Per Caitlin, sent in error. Will disregard. TY Normal [facility] 36 Patient to have repe at LFTs in 1 week as ordered by primary team during inpatient stay. Please schedule patient for hospital follow up for abdominal pain and elevated LFTs. Normal [facility] BASIC METABOLIC PANELon 10-2 Anion gap [Moles/Vol] 11 mmol/L Normal 3-13 [facility] Comment on above: Performed By: #### L [id number] ####Wood Car Builder: LACY OROSCO ([phone])[facility] ([facility])[address] [place] [address] Calcium [Mass/Vol] 10.7 mg/dL High 8.4-10.4 [facility] Comment on above: Performed By: #### L [id number] ####Wood Car Builder: LACY OROSCO ([phone])[facility] ([facility])[address] [place] [address] Chloride [Moles/Vol] 105 mmol/L Normal 98-107 [facility] Comment on above: Performed By: #### L [id number] ####Wood Car Builder: LACY OROSCO ([phone])[facility])[address] [place] [address] CO2 [Moles/Vol] 16 mmol/L Low 22-30 [facility] Comment on above: Performed By: #### L AB15 ####Wood Car Builder: LACY OROSCO ([phone])[facility])[address] [place] [address] Creatinine [Mass/Vol] 2.42 mg/dL High 0.52-1.04 [facility] Comment on above: Performed By: #### L [id number] ####Wood Car Builder: LACY OROSCO ([phone])[facility])[address] [place] [address] GLOMERULAR FILTRATION RATE ML/MIN/1.73 SQ M.PREDICTED 21.7 mL/min/1.73m*2 Low >60.0 [facility] Comment on above: Result Comment: Calc ulation based on the Chronic Kidney Disease Epidemiology Collaboration (CKD-EPI) equation refit without adjustment for race Performed By: #### L [id number] ####Wood Car Builder: LACY OROSCO ([phone])[facility])[address] [place] [address] Glucose [Mass/Vol] 139 mg/dL High 70-100 [facility] Comment on above: Performed By: #### L AB15 ####Wood Car Builder: LACY OROSCO ([phone])[facility])[address] [place] [address] Potassium [Moles/Vol] 4.5 mmol/L Normal 3.5-5.1 [facility] Comment on above: Performed By: #### L AB15 ####Wood Car Builder: LACY OROSCO ([phone])[facility])[address] [place] [address] [place] Sodium [Moles/Vol] 132 mmol/L Low 135-145 [facility] Comment on above: Performed By: #### L AB15 ####Wood Car Builder: LACY OROSCO ([phone])[facility] ([facility])[address] [place] [address] Urea nitrogen [Mass/Vol] 60 mg/dL High 7-17 [facility] Comment on above: Performed By: #### L AB15 ####Wood Car Builder: LACY OROSCO ([phone])[facility])[address] [place] [address] Bacteria identified Cx Nom ( U)Ordered By: Suresh Russo on 03-06-2024 Interpretation and review of laboratory results Normal [facility] Basic metabolic 1998 panelon 03-06-2024 Anion gap [Moles/Vol] 11 mmol/L 3 - 13 mmol/L [facility] Calcium [Mass/Vol] 10.7 mg/dL High 8.4 - 10. 4 mg/dL [facility] Chloride [Moles/Vol] 105 mmol/L 98 - 10 7 mmol/L [facility] CO2 [Moles/Vol] 16 mmol/L Low 22 - 30 mmol/L [facility] Creatinine [Mass/Vol] 2.42 mg/dL High 0.52 - 1.04 mg/dL [facility] GFR/1.73 sq M.predicted (S/P/Bld) [Vol rate/Area] 21.7 mL/min Low - PINF [facility] Comment on above: Calculation based on the Chronic Kidney Disease Epidemiology Collaboration (CKD-EPI) equation refit without adjustment for race Glucose [Mass/Vol] 139 mg/dL High 70 - 100 mg/dL [facility] Interpretation and review of laboratory results Abnormal [facility] Potassium [Moles/Vol] 4.5 mmol/L 3.5 - 5.1 mmol/L [facility] Sodium [Moles/Vol] 132 mmol/L Low 135 - 145 mmol/L [facility] Urea nitrogen [Mass/Vol] 60 mg/dL High 7 - 17 mg/dL [facility] CARECOORDon 03-06-2024 [facility] Care Managment Initi al Assessment Date: 03/06/2024 Patient Name: Eren Merchant : 1960 Patient Information Source of Information: Patient Cognition/Language: WFL - Within Functional Limits Permission given to speak with patient parts representative/caregiver as indicated: Yes Confirmation of Payer with patient/family: Yes Payer Name: [employer] [place] Medicare : No Confirmation of Primary Care Physician: Confirmed PCP Name: Priyanka Smith Seen in last 2 years?: Yes Primary Caregiver: Self If assistance needed, confirmed caregiver ready, willing and able to care for patient at discharge: Yes Confirmed with: chris Rodriguez other Living Arrangements Current Residence: House Number of Floors 2 Number of Entry Steps: 1 Bed/Bath Levels: Separate floors Facility: Facility Name: Plan to Return: Lives with: Spouse/significant other Support Systems: Spouse/significant other, Parent Activities of Daily Living Ambulation: Independent Bathing/Dressing: Independent Elimination/Continence/Toil eting: Independent Feeding: Independent Who Assists with Activities of Daily Living: Instrumental Activities of Daily Living Prescription Coverage: Yes Pharmacy Used: [facility] Medication Management: Independent Transportation/Shopping: Independent Transportation Mode: Car Needs Assistance with Transportation at Discharge: No Meal Preparation: Independent Laundry/Cleaning: Independent Finances/Bill Paying: Independent Communication: Independent Types of Care Services/Equipment Utilized Care Services: Dialysis Type: Durable Medical Equipment: Patient's Goal/Discharge Plan Patient expects to be discharged to: TBD Discharge Planning Actions: Continue to follow Patient's Choice Rights and [employer] and Collaborative Relationships Disclosed as Indicated for Post-Acute Care: Interdisciplinary Team Engagement: Social Work Referral for: Additional Information: Patient admitted to s/p b/l uretal stent insertion 03/05/2024. Regular diet noted. EEG noted this am. Order for MRI brain, head and neck noted. Neurology consult noted. Tele noted. IV Rocephin noted. Urine cx pending. Met with pt at bedside, introduced self and explained role of TCC. Pt has insurance with RX coverage, active with PCP. Patient lives with Michael, sig other. DCP TBD. TCC to assist and follow as needed. Lola Howe RN Normal [facility] CBC W Auto Differential pane l (Bld)on 03-06-2024 Basophils (Bld) [#/Vol] 0 10*3/uL 0.0 - 0.2 10*3/uL [facility] Basophils/100 WBC (Bld) 0.3 % 0.0 - 2.0 % [facility] Eosinophils (Bld) [#/Vol] 0 10*3/uL 0.0 - 0.5 10*3/uL [facility] Eosinophils/100 WBC (Bld) 0.1 % 0.0 - 6.0 % [facility] Erythrocyte distribution width (RBC) [Ratio] 15.2 % High 11.5 - 15.0 % [facility] Hematocrit (Bld) [Volume fraction] 36.8 % 35.0 - 47.0 % [facility] Hemoglobin (Bld) [Mass/Vol] 12.2 g/dL 11.7 - 16.0 g/dL [facility] Immature granulocytes (Bld) [#/Vol] 0.3 10*3/uL High NINF - 0.1 10*3/uL [facility] Immature granulocytes/100 WBC (Bld) 2.5 % High 0.0 - 2.0 % [facility] Interpretation and review of laboratory results Abnormal [facility] Lymphocytes (Bld) [#/Vol] 1.4 10*3/uL 1.0 - 4.3 10*3/uL [facility] Lymphocytes/100 WBC (Bld) 12.1 % Low 15.0 - 45.0 % [facility] MCH (RBC) [Entitic mass] 25.8 pg Low 26.0 - 34.0 pg [facility] MCHC (RBC) [Mass/Vol] 33.2 % 30.5 - 36.0 % [facility] MCV (RBC) [Entitic vol] 77.8 fL 77.0 - 99.0 fL [facility] Monocytes (Bld) [#/Vol] 0.4 10*3/uL 0.0 - 0.9 10*3/uL [facility] Monocytes/100 WBC (Bld) 3.8 % Low 5.0 - 13.0 % [facility] Neutrophils (Bld) [#/Vol] 9.1 10*3/uL High 1.8 - 7.5 10*3/uL [facility] Neutrophils/100 WBC (Bld) 81.2 % 38.0 - 82.0 % [facility] Nucleated RBC/100 WBC (Bld) [Ratio] 0 % [facility] Platelet mean volume (Bld) [Entitic vol] 10.3 fL 9.0 - 12.7 fL [facility] Platelets (Bld) [#/Vol] 462 10*3/uL High 140 - 440 10*3/uL [facility] RBC (Bld) [#/Vol] 4.73 10*6/uL 3.80 - 5.20 10*6/uL [facility] WBC (Bld) [#/Vol] 11.2 10*3/uL High 3.6 - 10.7 10*3/uL [facility] CBC W/Diff, Automatedon 02-15 PATH REV Reviewed Normal [facility] Comment on above: Result Comment: Neut rophilic leukocytosis. MICROCYTOSIS Thrombocytosis. Clinical correlation necessary. Sammy Szymanski M.D. 03/06/24 AMENDED REPORT 03/06/24 1101 PATH REV previously reported as: September Performed By: #### L 100.0100, L501.5200, L501.5425, L501.9520, L300.8000, L500.2500, L503.6620 ####[facility] [address] [place], [address] CBC WITH AUTO DIFFERENTIALon 03-06-2024 Basophils (Bld) [#/Vol] 0.0 10*3/uL Normal 0.0-0.2 [facility] Comment on above: Performed By: #### L [id number] ####Wood Car Builder: LACY OROSCO ([phone])[address] Basophils/100 WBC (Bld) 0.3 % Normal 0.0-2.0 [facility] Comment on above: Performed By: #### L [id number] ####Wood Car Builder: LACY OROSCO ([phone])[facility])[address] [place] [address] Eosinophils (Bld) [#/Vol] 0.0 10*3/uL Normal 0.0-0.5 [facility] Comment on above: Performed By: #### L [id number] ####Wood Car Builder: LACY OROSCO ([phone])[facility])[address] [place] [address] Eosinophils/100 WBC (Bld) 0.1 % Normal 0.0-6.0 [facility] Comment on above: Performed By: #### L [id number] ####Wood Car Builder: LACY OROSCO ([phone])[facility])[address] [place] [address] Erythrocyte distribution width (RBC) [Ratio] 15.2 % High 11.5-15.0 [facility] Comment on above: Performed By: #### L [id number] ####Wood Car Builder: LACY OROSCO ([phone])[address] Hematocrit (Bld) [Volume fraction] 36.8 % Normal 35.0-47.0 [facility] Comment on above: Performed By: #### L [id number] ####Wood Car Builder: LACY OROSCO ([phone])[facility])[address] [place] [address] Hemoglobin (Bld) [Mass/Vol] 12.2 g/dL Normal 11.7-16.0 [facility] Comment on above: Performed By: #### L [id number] ####Wood Car Builder: LACY OROSCO ([phone])[facility])[address] [place] [address] IMMATURE GRANS % 2.5 % High 0.0-2.0 [facility] Comment on above: Performed By: #### L [id number] ####Wood Car Builder: LACY OROSCO ([phone])[facility])[address] [place] [address] IMMATURE GRANS ABSOLUTE 0.3 10*3/uL High <0.1 [facility] Comment on above: Performed By: #### L [id number] ####Wood Car Builder: LACY OROSCO ([phone])[facility])[address] [place] [address] Lymphocytes (Bld) [#/Vol] 1.4 10*3/uL Normal 1.0-4.3 [facility] Comment on above: Performed By: #### L [id number] ####Wood Car Builder: LACY OROSCO ([phone])[facility])[address] [place] [address] Lymphocytes/100 WBC (Bld) 12.1 % Low 15.0-45.0 [facility] Comment on above: Performed By: #### L [id number] ####Wood Car Builder: LACY OROSCO ([phone])[facility])[address] [place] [address] MCH (RBC) [Entitic mass] 25.8 pg Low 26.0-34.0 [facility] Comment on above: Performed By: #### L [id number] ####Wood Car Builder: LACY OROSCO ([phone])[facility])[address] [place] [address] MCHC 33.2 % Normal 30.5-36.0 [facility] Comment on above: Performed By: #### L [id number] ####Wood Car Builder: LACY OROSCO ([phone])[facility])[address] [place] [address] MCV (RBC) [Entitic vol] 77.8 fL Normal 77.0-99.0 [facility] Comment on above: Performed By: #### L [id number] ####Wood Car Builder: LACY OROSCO ([phone])[facility])[address] [place] [address] Monocytes (Bld) [#/Vol] 0.4 10*3/uL Normal 0.0-0.9 [facility] Comment on above: Performed By: #### L [id number] ####Wood Car Builder: LACY OROSCO ([phone])[facility])[address] [place] [address] Monocytes/100 WBC (Bld) 3.8 % Low 5.0-13.0 [facility] Comment on above: Performed By: #### L [id number] ####Wood Car Builder: LACY OROSCO ([phone])[facility])[address] [place] [address] NEUTROPHILS ABSOLUTE 9.1 10*3/uL High 1.8-7.5 [facility] Comment on above: Performed By: #### L [id number] ####Wood Car Builder: LACY OROSCO ([phone])[facility] ([facility])[address] [place] [address] Neutrophils/100 WBC (Bld) 81.2 % Normal 38.0-82.0 [facility] Comment on above: Performed By: #### L [id number] ####Wood Car Builder: LACY OROSCO ([phone])[facility])[address] [place] [address] NRBC 0.0 /100 WBCs Normal 0.0-2.0 [facility] Comment on above: Performed By: #### L [id number] ####Wood Car Builder: LACY OROSCO ([phone])[facility] ([facility])[address] [place] [address] Platelet mean volume (Bld) [Entitic vol] 10.3 fL Normal 9.0-12.7 [facility] Comment on above: Performed By: #### L [id number] ####Wood Car Builder: LACY OROSCO ([phone])[facility] ([facility])[address] [place] [address] [place] Platelets (Bld) [#/Vol] 462 10*3/uL High 140-440 [facility] Comment on above: Performed By: #### L [id number] ####Wood Car Builder: LACY OROSCO ([phone])[facility])[address] [place] [address] RBC (Bld) [#/Vol] 4.73 10*6/uL Normal 3.80-5.20 [facility] Comment on above: Performed By: #### L [id number] ####Wood Car Builder: LACY OROSCO ([phone])[facility] ([facility])[address] [place] [address] WBC (Bld) [#/Vol] 11.2 10*3/uL High 3.6-10.7 [facility] Comment on above: Performed By: #### L [id number] ####Wood Car Builder: LACY OROSCO ([phone])[facility] ([facility])[address] [place] [address] IDNon 03-06-2024 IDN Problem: Pain - Adul t Goal: Verbalizes/displays adequate comfort level or baseline comfort level Outcome: Progressing Problem: Safety - Adult Goal: Free from fall injury Outcome: Progressing Problem: Discharge Planning Goal: Discharge to home or other facility with appropriate resources Outcome: Progressing Problem: Chronic Conditions and Co-morbidities Goal: Patient's chronic conditions and co-morbidity symptoms are monitored and maintained or improved Outcome: Progressing Normal [facility] IDN Problem: Pain - Adul t Goal: Verbalizes/displays adequate comfort level or baseline comfort level Outcome: Progressing Problem: Safety - Adult Goal: Free from fall injury Outcome: Progressing Problem: Discharge Planning Goal: Discharge to home or other facility with appropriate resources Outcome: Progressing Problem: Chronic Conditions and Co-morbidities Goal: Patient's chronic conditions and co-morbidity symptoms are monitored and maintained or improved Outcome: Progressing Normal [facility] Laboratory - Microbiology an d Antimicrobial susceptibilityOrdered By: Suresh Russo on 03-06-2024 Bacteria identified Cx Nom (U) No growth (<1,000 CFU/mL) [facility] MR Brain WO contraston 03-06 1. Negative unenhanced MR scan of the brain except for minimal T2 hyperintensities of left frontal lobe probably due to minimal microangiopathic change. Report Dictated on Electronically Signed By: Phong Sandoval MD Electronically Signed Date/Time: 03/06/2024 11:48 PM EDT [facility] Patient Name: EREN BUSTILLO : 1960 Exam Date/Time: 03/06/2024 18:46 Procedure: MR BRAIN WO CONTRAST Ordering Provider: KUSAR, , ANTONY Reason For Exam: Mental status change, unknown cause HISTORY: Mental status change. MR scan of the brain was performed with sagittal T1 weighted, axial T2 weighted and FLAIR scans, and axial diffusion and susceptibility weighted scans. There are normal sized, midline cerebral ventricles. There is no evidence of mass lesion, edema, nor hemorrhage. There is no hydrocephalus, shift, or herniation. No epidural or subdural collections are present. There is evidence of minimal white matter disease left frontal lobe without acute ischemic change. Diffusion weighted images are negative. The hypothalamus and pituitary regions are normal. The brain stem, cerebellum, and cranial - cervical junction are normal. The globes and orbital contents are grossly normal. There is no mucosal thickening in the paranasal sinuses. [facility] Phong Sandoval MD - 03/06/2024 Patient Name: EREN MERCHANT : 1960 [id number] Exam Date/Time: 03/06/2024 18:46 Procedure: MR BRAIN WO CONTRAST Ordering Provider: AWAD JARED Reason For Exam: Mental status change, unknown cause HISTORY: Mental status change. MR scan of the brain was performed with sagittal T1 weighted, axial T2 weighted and FLAIR scans, and axial diffusion and susceptibility weighted scans. There are normal sized, midline cerebral ventricles. There is no evidence of mass lesion, edema, nor hemorrhage. There is no hydrocephalus, shift, or herniation. No epidural or subdural collections are present. There is evidence of minimal white matter disease left frontal lobe without acute ischemic change. Diffusion weighted images are negative. The hypothalamus and pituitary regions are normal. The brain stem, cerebellum, and cranial - cervical junction are normal. The globes and orbital contents are grossly normal. There is no mucosal thickening in the paranasal sinuses. IMPRESSION: 1. Negative unenhanced MR scan of the brain except for minimal T2 hyperintensities of left frontal lobe probably due to minimal microangiopathic change. Report Dictated on Electronically Signed By: Phong Sandoval MD Electronically Signed Date/Time: 03/06/2024 11:48 PM EDT [facility] MR Brain WO contrastOrdered By: Phong Sandoval on 03-06-2024 [facility] Work Phone: MRA Head vessels WO contrast on 03-06-2024 1. Negative MR angiogram of the intracranial vessels. Report Dictated on Workstation: [employer] Electronically Signed By: Phong Sandoval MD Electronically Signed Date/Time: 03/06/2024 11:49 PM EDT [facility] Patient Name: EREN BUSTILLO : 1960 Exam Date/Time: 03/06/2024 18:46 Procedure: MR HEAD ANGIO WO IV CONTRAST Ordering Provider: AWAD JARED Reason For Exam: Dizziness, persistent/recurrent, cardiac or vascular cause suspected HISTORY: Change in mental status. 3D time of flight MR angiogram of the intracranial vessels was performed, with multiple maximum intensity projection images and review of the primary partitions. There is patent flow in the right and left internal carotid arteries, the distal right and left vertebral arteries, and basilar artery. There is no significant vertebrobasilar nor carotid siphon stenosis. There is good filling of the right and left anterior, middle, and posterior cerebral distribution vessels. There is no critical intracranial stenosis. There is no evidence of aneurysm or vascular malformation. [facility] Phong Sandoval MD - 03/06/2024 Patient Name: EREN MERCHANT : 1960 Exam Date/Time: 03/06/2024 18:46 Procedure: MR HEAD ANGIO WO IV CONTRAST Ordering Provider: AWAD JARED Reason For Exam: Dizziness, persistent/recurrent, cardiac or vascular cause suspected HISTORY: Change in mental status. 3D time of flight MR angiogram of the intracranial vessels was performed, with multiple maximum intensity projection images and review of the primary partitions. There is patent flow in the right and left internal carotid arteries, the distal right and left vertebral arteries, and basilar artery. There is no significant vertebrobasilar nor carotid siphon stenosis. There is good filling of the right and left anterior, middle, and posterior cerebral distribution vessels. There is no critical intracranial stenosis. There is no evidence of aneurysm or vascular malformation. IMPRESSION: 1. Negative MR angiogram of the intracranial vessels. Report Dictated on Electronically Signed By: Phong Sandoval MD Electronically Signed Date/Time: 03/06/2024 11:49 PM EDT [facility] MRA Neck vessels WO contrast on 03-06-2024 1. Limited quality MR angiogram of the extracranial carotid and vertebral arteries shows no definite significant stenosis with moderate tortuosity upper ICA's with S-shaped curves. Report Dictated on Electronically Signed By: Phong Sandoval MD Electronically Signed Date/Time: 03/06/2024 11:52 PM EDT [facility] Patient Name: EREN BUSTILLO : 1960 Exam Date/Time: 03/06/2024 18:46 Procedure: MR NECK ANGIO WO IV CONTRAST Ordering Provider: AWAD JARED Reason For Exam: Dizziness, persistent/recurrent, cardiac or vascular cause suspected Reasons for examination: Change in mental status. 2D and 3D time of flight MR angiograms of the extracranial vessels were performed, with multiple maximum intensity projection images and review of the primary partitions. Vessel measurements of any stenotic areas utilize the superior internal carotid artery as the denominator (NASCET criteria used). There is patent flow in the right and left common carotid arteries, and the right and left cervical internal carotid arteries. The cervical vertebral arteries are normal, with no stenosis or dissection. There is no significant carotid bifurcation stenosis on either side. There is good filling of the right and left internal and external carotid arteries. There is no ulceration, and no evidence of dissection. [facility] Phong Sandoval MD - 03/06/2024 Patient Name: EREN MERCHANT : 1960 Exam Date/Time: 03/06/2024 18:46 Procedure: MR NECK ANGIO WO IV CONTRAST Ordering Provider: AWAD JARED Reason For Exam: Dizziness, persistent/recurrent, cardiac or vascular cause suspected Reasons for examination: Change in mental status. 2D and 3D time of flight MR angiograms of the extracranial vessels were performed, with multiple maximum intensity projection images and review of the primary partitions. Vessel measurements of any stenotic areas utilize the superior internal carotid artery as the denominator (NASCET criteria used). There is patent flow in the right and left common carotid arteries, and the right and left cervical internal carotid arteries. The cervical vertebral arteries are normal, with no stenosis or dissection. There is no significant carotid bifurcation stenosis on either side. There is good filling of the right and left internal and external carotid arteries. There is no ulceration, and no evidence of dissection. IMPRESSION: 1. Limited quality MR angiogram of the extracranial carotid and vertebral arteries shows no definite significant stenosis with moderate tortuosity upper ICA's with S-shaped curves. Report Dictated on Electronically Signed By: Phong Sandoval MD Electronically Signed Date/Time: 03/06/2024 11:52 PM EDT [facility] No Panel Informationon 03-06 Radiology Study observation (narrative) [facility] Mario Angel MD PhD 03/06/2024 4:07 PM [facility] [address] [place] [id number] ROUTINE EEG REPORT Patient Name: Eren Merchant : 1960 Date of Study: 03/06/2024 Duration Recorded: 24 Minutes EEG#: [id number] ADVERTISING WRITER: Cleo Castillo EEG T. PROVIDER REQUESTING STUDY: Kayli Velasquez MD REASON FOR EXAM: Evaluate for epileptiform activity DIAGNOSIS TAG: Transient Neurologic Symptoms (TNS) HISTORY: Eren Merchant is a 63 y.o. 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 Patient has had two recent episodes which prompted her transfer to [facility] for further workup. On 02/26/24, patient was talking to her dad on the phone. The next thing she remembers is lying on the ground. No warning. She believes she had LOC but does not know duration. Estimates less than one minute. She denies denies tongue bite or b/b incontinence. No clear post-ictal symptoms. Her BP's run low at times and she is on propranolol. PCP attributed to possible hypotension. She had another episode while at the urologist's office on 03/03/24. She walked up to call center receptionist desk, all of a sudden both arms started shaking, she felt weak, and next thing she knew she was on the ground. Witnesses stated patient had full body shaking. Unknown duration. Patient denies LOC, tongue bite, or b/b incontinence. She remembers the entire episode. Patient has no history of seizures. She does transient episodes of dizziness (light-headed, no vertigo), sometimes associated with worsening tremor and falls. MEDICATIONS: Current Facility-Administered Medications Medication Dose Route Frequency Provider Last Rate Last Admin acetaminophen (Tylenol) tablet 650 mg 650 mg Oral q6h PRN Jay Black MD Or acetaminophen (Tylenol) suppository 650 mg 650 mg Rectal q6h PRN Jay Black MD amitriptyline (Elavil) tablet 50 mg 50 mg Oral Nightly Jay Black MD 50 mg at 03/05/242127 [Held by provider] aspirin EC tablet 81 mg 81 mg Oral Daily Jay Black MD Calcium Carb-Cholecalciferol 500-5 MG-MCG per tablet 1 tablet 1 tablet Oral BID Jay Black MD 1 tablet at 03/06/24 08 cefTRIAXone (Rocephin) 1,000 mg in sodium chloride 0.9 % 50 mL IVPB Mini-Bag Plus 1,000 mg IntraVENous q24h Jay Black MD Stopped at 03/06/24 0551 fludrocortisone (Florinef) tablet 0.1 mg 0.1 mg Oral BID Jay Black MD 0.1 mg at 03/06/24 0811 heparin injection 5,000 Units 5,000 Units SubCUTAneous 3 times per day Jay Black MD 5,000 Units at 03/06/24 0521 influenza vaccine A&B surf ant adjuvanted (Fluad) HIGH-DOSE injection 0.5 mL 0.5 mL IntraMUSCular Once Jay Black MD levothyroxine (Synthroid, Levoxyl) tablet 100 mcg 100 mcg Oral qAM AC Jay Black MD 100 mcg at 03/06/24 0521 melatonin tablet 3 mg 3 mg Oral Nightly Jay Black MD [Held by provider] mycophenolate (Cellcept) capsule 1,000 mg 1,000 mg Oral q AM Maurilio Groves MD [Held by provider] mycophenolate (Cellcept) capsule 500 mg 500 mg Oral qPM Maurilio Groves MD naloxone (Narcan) injection 0.4 mg 0.4 mg IntraVENous q5 min PRN Jay Black MD ondansetron ODT (Zofran-ODT) disintegrating tablet 4 mg 4 mg Oral q8h PRN Jay Black MD Or ondansetron (Zofran) injection 4 mg 4 mg IntraVENous q6h PRN Jay Black MD pantoprazole (ProtoNix) EC tablet 40 mg 40 mg Oral BID AC Jay Black MD 40 mg at 03/06/24 0521 polyethylene glycol (PEG) 3350 (Miralax) packet 17 g 17 g Oral Daily PRN Jay Black MD predniSONE (Deltasone) tablet 5 mg 5 mg Oral Daily Jay Black MD 5 mg at 03/06/24 0811 sodium chloride 0.9 % infusion 5-250 mL/hr IntraVENous PRN Jay Black MD sodium chloride 0.9% (NS) flush 5-40 mL 5-40 mL IntraVENous q12h Jay Black MD 10 mL at 03/06/24 0245 sodium chloride 0.9% (NS) flush 5-40 mL 5-40 mL IntraVENous PRN Jay Black MD sucralfate (Carafate) tablet 1 g 1 g Oral 4x daily PRN Jay Black MD TECHNICAL ASPECTS: This routine scalp EEG study with video was carried out at [facility]. Scalp electrodes were positioned in person by an cardiac catheterization technologist, following patient education, according to the 10-20 International system of electrode placement and maintained for integrity and quality of the recording. EEG data with video was recorded continuously and digitally stored. The cardiac catheterization technologist reviewed all automated detections and manual events and prepared the data for archiving and provider review. Referential and bi (more content not included)... [facility] There is no interpre tation needed for this exam. IMAGING Progress Noteon 03-06-2024 Progress Note Nutrition rescreen completed. Chart reviewed. Patient to be monitored and followed by the diet quality assurance/r&d lab technician. ALEE Agustin Normal [facility] Progress Note Brief Neurology Upda te: Patient with MRI brain and MRA head/neck pending. Routine EEG pending. Echo pending. 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 LOC/AMS episodes -Patient has occasional dizziness and more recent tremor and tardive dyskinesia -Recent episodes occurred in the setting of hypotension, UTI, MANJIT, hyponatremia -LOC episode: concern for syncope > seizure -Episode of abnormal body movements: concern for nonepileptic event -CT head (per outside report) negative for acute abn -MRI brain/MRAs pending -TTE pending -Routine EEG pending -Orthostatics -TSH WNL -No AED unless clinical seizure activity and/or abnormal neurologic testing -Maintain sz precautions Complicated UTI/abnormal CT A/P findings -Hx of chronic interstitial cystitis -Urology following here -On cefriaxone Neurology service will make further recommendations after reviewing MRI/MRA and EEG. Plan discussed with Dr. Cruz. Normal [facility] Progress Note ------- Attestation signed by Karen Bryan DO at 03/14/2024 9:14 AM Attending Physician's Attestation Date of assessment: 03/06/24 I have seen and examined the patient and agree with the assessment and plan. Pod 1 bl stent insertion Plan outpatient definitive stone management Ok for further intervention by other specialties as needed Please do not hesitate to reach out to the urology team with additional questions or concerns On-Call Finder --> [facility] Page on-call resident(s) first Karen Bryan DO [facility] UROLOGY PROGRESS NOTE PATIENT NAME: Eren Merchant DATE OF : 1960 ADMISSION DATE: 03/04/2024 TODAY'S DATE: 03/06/2024 Subjective No acute events overnight. Doing well Minimal pain Having some hematuria but understands this is to be expected with stents in place Objective VS: BP 130/85 (BP Location: Left arm, Patient Position: Lying) Pulse 111 Temp 36.2 ?C (97.2 ?F) (Temporal) Resp 16 Ht 5' 5 (1.651 m) Wt 178 lb (80.7 kg) SpO2 97% BMI 29.62 kg/m? I & O - 24hr: I/O last 3 completed shifts: In: 250 (3.1 mL/kg) [I.V.:250 (3.1 mL/kg)] Out: - (0 mL/kg) Weight: 80.7 kg I/O this shift: In: 150 [P.O.:150] Out: - Physical Exam: General: Neck: Resp: Abdomen: No acute distress Supple Normal effort, no respiratory distress, on RA Soft, non-tender, nondistended : No flank ttp Skin: Skin color, texture, turgor normal, no rashes or lesions Labs and Imaging Studies Labs: CBC: Lab Results Component Value Date WBC 11.2 (H) 03/06/2024 HGB 12.2 03/06/2024 HCT 36.8 03/06/2024 MCV 77.8 03/06/2024 PLT 462 (H) 03/06/2024 BMP: Lab Results Component Value Date GLUCOSE 139 (H) 03/06/2024 CALCIUM 10.7 (H) 03/06/2024 NA 132 (L) 03/06/2024 K 4.5 03/06/2024 CO2 16 (L) 03/06/2024 CL 105 03/06/2024 BUN 60 (H) 03/06/2024 CREATININE 2.42 (H) 03/06/2024 PT/INR: No results found for: INR, PROTIME Urinalysis: No results found for: UA Urine Culture: No components found for: UCX Blood Culture: na Imaging Studies: ECG 12 lead Sinus tachycardia Low voltage, precordial leads Borderline T abnormalities, anterior leads Electronically Signed On 03-05-2024 17:08:28 EDT by Fatemeh Watkins CT abdomen pelvis wo IV contrast Narrative: [facility]CHANT : 1960 [id number] Exam Date/Time: 03/05/2024 09:11 Procedure: CT ABDOMEN PELVIS WO IV CONTRAST Ordering Provider: PATTON BENJAMIN Reason For Exam: Hydronephrosis CT ABDOMEN AND PELVIS WITHOUT CONTRAST CLINICAL INDICATION: Hydronephrosis TECHNIQUE: Transaxial sequence through the abdomen and pelvis without contrast with 3 mm reconstruction. Sagittal coronal reconstruction images included. Dose reduction was employed with automated exposure control. COMPARISON: Ultrasound from one day ago and CT from 09/16/2008 FINDINGS: Exam quality: Limited for the evaluation of solid organs due to the lack of intravenous contrast and limited for evaluation of the gastrointestinal tract due to lack of oral contrast. Chest base: Atelectasis at the bases. No pleural fluid. Liver: Normal size and contour. No identifiable lesion. Biliary tree: Normal caliber. Spleen: Normal. Adrenals: Normal. Pancreas: Unremarkable. Kidneys: No contour abnormality or focal renal lesion. Renal collecting systems: Nonobstructing calculus in the right lower pole measures 0.6 cm. No calculus on the left. Moderate bilateral hydronephrosis. The right ureter is only minimally distended and difficult to follow into the urinary bladder. Some calcifications are present in the right side of the lower pelvis. The left ureter is moderately distended and a calcification focus on image 3:126 is probably an obstructing calculus measuring as large as 0.5 cm in transverse dimension. Free fluid: None. Retroperitoneal/mesenteric lymphadenopathy: None. Aorta: Normal caliber. Bowel: Normal caliber. Abdominal wall: Sacral stimulator device is present. Postoperative gas bubbles present within the subcutaneous soft tissues of the right mid abdominal wall, probably related to an injection site. No other abnormality within the abdominal wall. Bladder: No calculi or filling defects. Pelvic organs/viscera: No mass identified. Pelvic lymphadenopathy: None. Osseous structures: Minor anterior wedge deformity at the T12 level. There is a transitional S1 level. Impression: Bilateral hydronephrosis. Obstructing calculus in the left distal ureter. The right distal ureter is difficult to follow into the bladder. Report Dictated on Electronically Signed By: Guillermo Calvin MD Electronically Signed Date/Time: 03/05/2024 9:35 AM ED (more content not included)... [facility] Heart TransthoracicOrdere d By: Priyanka Holt on 03-06-2024 Ao Root Index 1.81 cm/m2 [facility] [employer] Work Phone: Aortic Root 3.4 cm [facility] [employer] Work Phone: [phone] Aortic Sinus Valsalva 3.4 cm [facility] [employer] Work Phone: Aortic Sinus Valsalva Index 1.81 cm/m2 [facility] [employer] Work Phone: Ascending Aorta 3.4 cm [facility] [employer] Work Phone: Ascending Aorta Index 1.81 cm/m2 [facility] [employer] Work Phone: E/E' Lateral 5.43 [facility] [employer] Work Phone: E/E' Ratio (Averaged) 4.83 [facility] [employer] Work Phone: E/E' Septal 4.22 [facility] [employer] Work Phone: EF BP 60 % 55 - 100 % [facility] [employer] Work Phone: Est. RA Pressure 3 mmHg [facility] [employer] Work Phone: Fractional Shortening 2D 36 % 28 - 44 % [facility] [employer] Work Phone: Global Longitudinal Strain -17.6 % [facility] Phone: Global Longitudinal Strain -17.5 % [facility] Phone: Global Longitudinal Strain -21.6 % [facility] Phone: Global Longitudinal Strain -18.9 % [facility] [employer] Phone: Interpretation and review of laboratory results Abnormal [facility] Phone: IVC Diameter 1.6 cm [facility] Work Phone: IVSd 0.8 cm 0.6 - 0.9 cm [facility] [employer] Work Phone: LA Volume 2C 19 mL Abnormal 22 - 52 mL [facility] [employer] Work Phone: LA Volume 4C 22 mL 22 - 52 mL [facility] [employer] Work Phone: LA Volume A/L 23 mL [facility] [employer] Work Phone: LA Volume BP 21 mL Abnormal 22 - 52 mL [facility] [employer] Work Phone: LA Volume Index 2C 10 mL/m2 Abnormal 16 - 34 mL/m2 [facility] [employer] Work Phone: LA Volume Index 4C 12 mL/m2 Abnormal 16 - 34 mL/m2 [facility] [employer] Work Phone: LA Volume Index A/L 12 mL/m2 16 - 34 mL/m2 [facility] [employer] Work Phone: LA Volume Index BP 11 ml/m2 Abnormal 16 - 34 ml/m2 [facility] [employer] Work Phone: LV E' Lateral Velocity 7 cm/s [facility] Work Phone: LV E' Septal Velocity 9 cm/s [facility] [employer] Work Phone: LV Mass 2D 89.7 g 67 - 162 g [facility] [employer] Work Phone: LV Mass 2D Index 47.7 g/m2 43 - 95 g/m2 [facility] [employer] Work Phone: LV RWT Ratio 0.41 [facility] [employer] Work Phone: LVIDd 3.9 cm 3.9 - 5.3 cm [facility] [employer] Work Phone: LVIDd Index 2.07 cm/m2 [facility] [employer] Work Phone: LVIDs 2.5 cm [facility] [employer] Work Phone: LVIDs Index 1.33 cm/m2 [facility] [employer] Work Phone: LVOT Area 3.5 cm2 [facility] [employer] Work Phone: LVOT Cardiac Output 4.7 liter/mi nu te [facility] [employer] Work Phone: LVOT Diameter 2.1 cm [employer] Work Phone: LVOT Mean Gradient 1 mmHg [employer] Work Phone: LVOT Peak Gradient 3 mmHg [employer] Work Phone: LVOT Peak Velocity 0.9 m/s [employer] Work Phone: LVOT Stroke Volume Index 23.8 mL/m2 [employer] Work Phone: LVOT SV 44.7 ml [employer] Work Phone: LVOT VTI 12.9 cm [employer] Work Phone: LVPWd 0.8 cm 0.6 - 0.9 cm [employer] Work Phone: MV A Velocity 0.59 m/s [employer] Work Phone: MV E Velocity 0.38 m/s [employer] Work Phone: MV E Wave Deceleration Time 105.3 ms [employer] Work Phone: MV E/A 0.64 [employer] Work Phone: RA Area 4C 14.5 mL [employer] Work Phone: RA Area 4C 14.4 mL [employer] Work Phone: RV Basal Dimension 2.7 cm [employer] Work Phone: RV Free Wall Peak S' 17 cm/s [employer] Work Phone: RV Mid Dimension 2.5 cm [employer] Work Phone: RVSP 30 mmHg [employer] Work Phone: Sinotubular Junction 2.5 cm [employer] Work Phone: TAPSE 1 cm Abnormal 1.7 cm [employer] Work Phone: TR Max Velocity 2.59 m/s [employer] Work Phone: TR Peak Gradient 27 mmHg [employer] Work Phone: [facility] [employer] Work Phone: US Heart Transthoracicon Left Ventricle: Left ventricle size is normal. Normal wall thickness. Normal left ventricular systolic function. EF by 2D Simpsons Biplane is 60%. Normal wall motion. Right Ventricle: Not well visualized. Right ventricle size is grossly normal. Systolic function may be mildly reduced on some views. No significant valvular abnormalities. Left Ventricle Left ventricle size is normal. Normal wall thickness. Normal left ventricular systolic function. EF by 2D [employer]ons Biplane is 60%. Normal wall motion. Right Ventricle Not well visualized. Right ventricle size is grossly normal. Systolic function may be mildly reduced on some views. Left Atrium Left atrium size is normal. Right Atrium Right atrium size is normal. IVC/SVC IVC diameter is normal and decreases greater than 50% during inspiration; therefore the estimated right atrial pressure is normal (~3 mmHg). Mitral Valve Valve structure is normal. Mild annular calcification. No regurgitation. No stenosis noted. Tricuspid Valve Valve structure is normal. Trace regurgitation. Normal RVSP. RVSP is 30 mmHg. Aortic Valve Trileaflet. No cusp thickening. No cusp calcification. No regurgitation. No stenosis. Pulmonic Valve Valve structure is normal. Trace regurgitation. Ascending Aorta Normal sized sinuses of Valsalva and ascending aorta. Pericardium No pericardial effusion. Septum No interatrial shunt visualized on color Doppler. Study Details Image quality: technically difficult. Additional technique includes myocardial strain. Heart rate: 103 bpm. Blood pressure: 111/74 mmHg. No contrast was given. Echo Additional Conclusions No significant valvular abnormalities. CV CPACS 36on 03-05-2024 36 Had bilateral stents placed Needs cp mandi ureteroscopy laser litho in 1-2 weeks bilateral stent change Normal [facility] BASIC METABOLIC PANELon 02-15 Anion gap [Moles/Vol] 14 mmol/L High 3-13 [facility] Comment on above: Performed By: #### L [id number], [id number] ####[employer] Builder: LACY OROSCO ([phone])[facility] ([facility])[address] [place] [address] Calcium [Mass/Vol] 11.3 mg/dL High 8.4-10.4 [facility] Comment on above: Performed By: #### L [id number], [id number] ####[employer] Builder: LACY OROSCO ([phone])[facility] ([facility])[address] [place] [address] Chloride [Moles/Vol] 102 mmol/L Normal 98-107 [facility] Comment on above: Performed By: #### L [id number], [id number] ####[employer] Builder: LACY OROSCO ([phone])[facility])[address] [place] [address] CO2 [Moles/Vol] 17 mmol/L Low 22-30 [facility] Comment on above: Performed By: #### L [id number], [id number] ####[employer] Builder: LACY OROSCO ([phone])[facility])[address] [place] [address] Creatinine [Mass/Vol] 2.67 mg/dL High 0.52-1.04 [facility] Comment on above: Performed By: #### L [id number], [id number] ####[employer] Builder: LACY OROSCO ([phone])[facility])[address] [place] [address] GLOMERULAR FILTRATION RATE ML/MIN/1.73 SQ M.PREDICTED 19.3 mL/min/1.73m*2 Low >60.0 [facility] Comment on above: Result Comment: Calc ulation based on the Chronic Kidney Disease Epidemiology Collaboration (CKD-EPI) equation refit without adjustment for race Performed By: #### L AB15, [id number] ####[employer] Builder: LACY OROSCO ([phone])[facility] ([facility])[address] [place] [address] Glucose [Mass/Vol] 120 mg/dL High 70-100 [facility] Comment on above: Performed By: #### L [id number], [id number] ####[employer] Builder: LACY OROSCO ([id number])[facility])[address] [place] [address] Potassium [Moles/Vol] 4.2 mmol/L Normal 3.5-5.1 [facility] Comment on above: Performed By: #### L AB15, [id number] ####[employer] Builder: LACY OROSCO ([phone])[facility] ([facility])[address] [place] [address] Sodium [Moles/Vol] 133 mmol/L Low 135-145 [facility] Comment on above: Performed By: #### L [id number], [id number] ####[employer] Builder: LACY OROSCO ([id number])[facility] ([facility])[address] [place] [address] Urea nitrogen [Mass/Vol] 60 mg/dL High 7-17 [facility] Comment on above: Performed By: #### L AB15, [id number] ####[employer] Builder: LACY OROSCO ([phone])[facility])[address] [place] [address] Basic metabolic 1998 panelon 03-05-2024 Anion gap [Moles/Vol] 14 mmol/L High 3 - 13 mmol/L [facility] Calcium [Mass/Vol] 11.3 mg/dL High 8.4 - 10. 4 mg/dL [facility] Chloride [Moles/Vol] 102 mmol/L 98 - 10 7 mmol/L [facility] CO2 [Moles/Vol] 17 mmol/L Low 22 - 30 mmol/L [facility] Creatinine [Mass/Vol] 2.67 mg/dL High 0.52 - 1.04 mg/dL [facility] GFR/1.73 sq M.predicted (S/P/Bld) [Vol rate/Area] 19.3 mL/min Low - PINF [facility] Comment on above: Calculation based on the Chronic Kidney Disease Epidemiology Collaboration (CKD-EPI) equation refit without adjustment for race Glucose [Mass/Vol] 120 mg/dL High 70 - 100 mg/dL [facility] Interpretation and review of laboratory results Abnormal [facility] Potassium [Moles/Vol] 4.2 mmol/L 3.5 - 5.1 mmol/L [facility] Sodium [Moles/Vol] 133 mmol/L Low 135 - 145 mmol/L [facility] Urea nitrogen [Mass/Vol] 60 mg/dL High 7 - 17 mg/dL [facility] CBC W Auto Differential pane l (Bld)Ordered By: Jordan Middleton on 03-05-2024 Basophils (Bld) [#/Vol] 0.1 10*3/uL 0.0 - 0.2 10*3/uL [facility] Basophils/100 WBC (Bld) 0.4 % 0.0 - 2.0 % [facility] Eosinophils (Bld) [#/Vol] 0.1 10*3/uL 0.0 - 0.5 10*3/uL [facility] Eosinophils/100 WBC (Bld) 0.4 % 0.0 - 6.0 % [facility] [employer] Erythrocyte distribution width (RBC) [Ratio] 15.3 % High 11.5 - 15.0 % [facility] [employer] Hematocrit (Bld) [Volume fraction] 38.2 % 35.0 - 47.0 % [facility] [employer] Hemoglobin (Bld) [Mass/Vol] 12.3 g/dL 11.7 - 16.0 g/dL [facility] [employer] Immature granulocytes (Bld) [#/Vol] 0.2 10*3/uL High NINF - 0.1 10*3/uL [facility] Immature granulocytes/100 WBC (Bld) 1.7 % 0.0 - 2.0 % [facility] Interpretation and review of laboratory results Abnormal [facility] Lymphocytes (Bld) [#/Vol] 1.9 10*3/uL 1.0 - 4.3 10*3/uL [facility] Lymphocytes/100 WBC (Bld) 15.5 % 15.0 - 45.0 % [facility] MCH (RBC) [Entitic mass] 25.3 pg Low 26.0 - 34.0 pg [facility] [employer] MCHC (RBC) [Mass/Vol] 32.2 % 30.5 - 36.0 % [facility] [employer] MCV (RBC) [Entitic vol] 78.4 fL 77.0 - 99.0 fL [facility] [employer] Monocytes (Bld) [#/Vol] 1.3 10*3/uL High 0.0 - 0.9 10*3/uL [facility] Monocytes/100 WBC (Bld) 10.4 % 5.0 - 13.0 % [facility] Neutrophils (Bld) [#/Vol] 8.9 10*3/uL High 1.8 - 7.5 10*3/uL [facility] Neutrophils/100 WBC (Bld) 71.6 % 38.0 - 82.0 % [facility] Nucleated RBC/100 WBC (Bld) [Ratio] 0 % [facility] Platelet mean volume (Bld) [Entitic vol] 10.3 fL 9.0 - 12.7 fL [facility] Platelets (Bld) [#/Vol] 466 10*3/uL High 140 - 440 10*3/uL [facility] RBC (Bld) [#/Vol] 4.87 10*6/uL 3.80 - 5.20 10*6/uL [facility] WBC (Bld) [#/Vol] 12.4 10*3/uL High 3.6 - 10.7 10*3/uL [facility] CBC WITH AUTO DIFFERENTIALon 03-05-2024 Basophils (Bld) [#/Vol] 0.1 10*3/uL Normal 0.0-0.2 [facility] Comment on above: Performed By: #### L [id number] ####[employer] Builder: LACY OROSCO ([id number])[facility])[address] [place] [address] Basophils/100 WBC (Bld) 0.4 % Normal 0.0-2.0 [facility] Comment on above: Performed By: #### L [id number] ####[employer] Builder: LACY OROSCO ([phone])[facility])[address] [place] [address] Eosinophils (Bld) [#/Vol] 0.1 10*3/uL Normal 0.0-0.5 [facility] Comment on above: Performed By: #### L [id number] ####[employer] Builder: LACY OROSCO ([id number])[facility])[address] [place] [address] Eosinophils/100 WBC (Bld) 0.4 % Normal 0.0-6.0 [facility] Comment on above: Performed By: #### L [id number] ####[employer] Builder: LACY OROSCO ([id number])[facility])[address] [place] [address] Erythrocyte distribution width (RBC) [Ratio] 15.3 % High 11.5-15.0 [facility] Comment on above: Performed By: #### L [id number] ####[employer] Builder: LACY OROSCO ([id number])[address] Hematocrit (Bld) [Volume fraction] 38.2 % Normal 35.0-47.0 [facility] Comment on above: Performed By: #### L [id number] ####[employer] Builder: LACY OROSCO ([phone])[facility])[address] [place] [address] Hemoglobin (Bld) [Mass/Vol] 12.3 g/dL Normal 11.7-16.0 [facility] Comment on above: Performed By: #### L [id number] ####Wood Car Builder: LACY OROSCO ([phone])[address] IMMATURE GRANS % 1.7 % Normal 0.0-2.0 [facility] Comment on above: Performed By: #### L [id number] ####Wood Car Builder: LACY OROSCO ([phone])[address] IMMATURE GRANS ABSOLUTE 0.2 10*3/uL High <0.1 [facility] Comment on above: Performed By: #### L [id number] ####Wood Car Builder: LACY OROSCO ([phone])[facility])[address] [place] [address] Lymphocytes (Bld) [#/Vol] 1.9 10*3/uL Normal 1.0-4.3 [facility] Comment on above: Performed By: #### L [id number] ####Wood Car Builder: LACY OROSCO ([phone])[address] Lymphocytes/100 WBC (Bld) 15.5 % Normal 15.0-45.0 [facility] Comment on above: Performed By: #### L [id number] ####Wood Car Builder: LACY OROSCO ([phone])[facility] ([facility])[address] [place] [address] MCH (RBC) [Entitic mass] 25.3 pg Low 26.0-34.0 [facility] Comment on above: Performed By: #### L [id number] ####Wood Car Builder: LACY OROSCO ([phone])[facility])[address] [place] [address] MCHC 32.2 % Normal 30.5-36.0 [facility] Comment on above: Performed By: #### L [id number] ####Wood Car Builder: LACY OROSCO ([phone])[facility])[address] [place] [address] MCV (RBC) [Entitic vol] 78.4 fL Normal 77.0-99.0 [facility] Comment on above: Performed By: #### L [id number] ####Wood Car Builder: LACY OROSCO ([phone])[facility] ([facility])[address] [place] [address] Monocytes (Bld) [#/Vol] 1.3 10*3/uL High 0.0-0.9 [facility] Comment on above: Performed By: #### L [id number] ####Wood Car Builder: LACY OROSCO ([phone])[facility])[address] [place] [address] Monocytes/100 WBC (Bld) 10.4 % Normal 5.0-13.0 [facility] Comment on above: Performed By: #### L [id number] ####Wood Car Builder: LACY OROSCO ([phone])[facility])[address] [place] [address] NEUTROPHILS ABSOLUTE 8.9 10*3/uL High 1.8-7.5 [facility] Comment on above: Performed By: #### L [id number] ####Wood Car Builder: LACY OROSCO ([phone])[facility])[address] [place] [address] Neutrophils/100 WBC (Bld) 71.6 % Normal 38.0-82.0 [facility] Comment on above: Performed By: #### L [id number] ####Wood Car Builder: LACY OROSCO ([phone])[facility] ([facility])[address] [place] [address] NRBC 0.0 /100 WBCs Normal 0.0-2.0 [facility] Comment on above: Performed By: #### L [id number] ####Wood Car Builder: LACY OROSCO ([phone])[facility] ([facility])[address] [place] [address] Platelet mean volume (Bld) [Entitic vol] 10.3 fL Normal 9.0-12.7 [facility] Comment on above: Performed By: #### L [id number] ####Wood Car Builder: LACY OROSCO ([phone])[facility] ([facility])[address] [place] [address] Platelets (Bld) [#/Vol] 466 10*3/uL High 140-440 [facility] Comment on above: Performed By: #### L [id number] ####Wood Car Builder: LACY OROSCO ([phone])[facility] ([facility])[address] [place] [address] RBC (Bld) [#/Vol] 4.87 10*6/uL Normal 3.80-5.20 [facility] Comment on above: Performed By: #### L [id number] ####Wood Car Builder: LACY OROSCO ([phone])[facility] ([facility])[address] [place] [address] WBC (Bld) [#/Vol] 12.4 10*3/uL High 3.6-10.7 [facility] Comment on above: Performed By: #### L [id number] ####Wood Car Builder: LACY OROSCO ([phone])[facility] ([facility])[address] [place] [address] CT ABDOMEN PELVIS WO IV CONT [facility] 03-05-2024 CT ABDOMEN PELVIS WO IV CONTRAST Patient Name: EREN MERCHANT : 1960 Exam Date/Time: 03/05/2024 09:11 Procedure: CT ABDOMEN PELVIS WO IV CONTRAST Ordering Provider: PATTON BENJAMIN Reason For Exam: Hydronephrosis CT ABDOMEN AND PELVIS WITHOUT CONTRAST CLINICAL INDICATION: Hydronephrosis TECHNIQUE: Transaxial sequence through the abdomen and pelvis without contrast with 3 mm reconstruction. Sagittal coronal reconstruction images included. Dose reduction was employed with automated exposure control. COMPARISON: Ultrasound from one day ago and CT from 09/16/2008 FINDINGS: Exam quality: Limited for the evaluation of solid organs due to the lack of intravenous contrast and limited for evaluation of the gastrointestinal tract due to lack of oral contrast. Chest base: Atelectasis at the bases. No pleural fluid. Liver: Normal size and contour. No identifiable lesion. Biliary tree: Normal caliber. Spleen: Normal. Adrenals: Normal. Pancreas: Unremarkable. Kidneys: No contour abnormality or focal renal lesion. Renal collecting systems: Nonobstructing calculus in the right lower pole measures 0.6 cm. No calculus on the left. Moderate bilateral hydronephrosis. The right ureter is only minimally distended and difficult to follow into the urinary bladder. Some calcifications are present in the right side of the lower pelvis. The left ureter is moderately distended and a calcification focus on image 3:126 is probably an obstructing calculus measuring as large as 0.5 cm in transverse dimension. Free fluid: None. Retroperitoneal/mesenteric lymphadenopathy: None. Aorta: Normal caliber. Bowel: Normal caliber. Abdominal wall: Sacral stimulator device is present. Postoperative gas bubbles present within the subcutaneous soft tissues of the right mid abdominal wall, probably related to an injection site. No other abnormality within the abdominal wall. Bladder: No calculi or filling defects. Pelvic organs/viscera: No mass identified. Pelvic lymphadenopathy: None. Osseous structures: Minor anterior wedge deformity at the T12 level. There is a transitional S1 level. IMPRESSION: Bilateral hydronephrosis. Obstructing calculus in the left distal ureter. The right distal ureter is difficult to follow into the bladder. Report Dictated on Electronically Signed By: Guillermo Calvin MD Electronically Signed Date/Time: 03/05/2024 9:35 AM EDT [facility] CT Abdomen WO contraston Bilateral hydronephr osis. Obstructing calculus in the left distal ureter. The right distal ureter is difficult to follow into the bladder. Report Dictated on Electronically Signed By: Guillermo Calvin MD Electronically Signed Date/Time: 03/05/2024 9:35 AM EDT [facility] Patient Name: EREN BUSTILLO : 1960 [facility]#: [id number] Exam Date/Time: 03/05/2024 09:11 Procedure: CT ABDOMEN PELVIS WO IV CONTRAST Ordering Provider: PATTON BENJAMIN Reason For Exam: Hydronephrosis CT ABDOMEN AND PELVIS WITHOUT CONTRAST CLINICAL INDICATION: Hydronephrosis TECHNIQUE: Transaxial sequence through the abdomen and pelvis without contrast with 3 mm reconstruction. Sagittal coronal reconstruction images included. Dose reduction was employed with automated exposure control. COMPARISON: Ultrasound from one day ago and CT from 09/16/2008 FINDINGS: Exam quality: Limited for the evaluation of solid organs due to the lack of intravenous contrast and limited for evaluation of the gastrointestinal tract due to lack of oral contrast. Chest base: Atelectasis at the bases. No pleural fluid. Liver: Normal size and contour. No identifiable lesion. Biliary tree: Normal caliber. Spleen: Normal. Adrenals: Normal. Pancreas: Unremarkable. Kidneys: No contour abnormality or focal renal lesion. Renal collecting systems: Nonobstructing calculus in the right lower pole measures 0.6 cm. No calculus on the left. Moderate bilateral hydronephrosis. The right ureter is only minimally distended and difficult to follow into the urinary bladder. Some calcifications are present in the right side of the lower pelvis. The left ureter is moderately distended and a calcification focus on image 3:126 is probably an obstructing calculus measuring as large as 0.5 cm in transverse dimension. Free fluid: None. Retroperitoneal/mesenteric lymphadenopathy: None. Aorta: Normal caliber. Bowel: Normal caliber. Abdominal wall: Sacral stimulator device is present. Postoperative gas bubbles present within the subcutaneous soft tissues of the right mid abdominal wall, probably related to an injection site. No other abnormality within the abdominal wall. Bladder: No calculi or filling defects. Pelvic organs/viscera: No mass identified. Pelvic lymphadenopathy: None. Osseous structures: Minor anterior wedge deformity at the T12 level. There is a transitional S1 level. [facility] Guillermo Calvin MD - 03/05/2024 [facility] Name: [facility] MERCHANT : 1960 [id number] Exam Date/Time: 03/05/2024 09:11 Procedure: CT ABDOMEN PELVIS WO IV CONTRAST Ordering Provider: PATTON BENJAMIN Reason For Exam: Hydronephrosis CT ABDOMEN AND PELVIS WITHOUT CONTRAST CLINICAL INDICATION: Hydronephrosis TECHNIQUE: Transaxial sequence through the abdomen and pelvis without contrast with 3 mm reconstruction. Sagittal coronal reconstruction images included. Dose reduction was employed with automated exposure control. COMPARISON: Ultrasound from one day ago and CT from 09/16/2008 FINDINGS: Exam quality: Limited for the evaluation of solid organs due to the lack of intravenous contrast and limited for evaluation of the gastrointestinal tract due to lack of oral contrast. Chest base: Atelectasis at the bases. No pleural fluid. Liver: Normal size and contour. No identifiable lesion. Biliary tree: Normal caliber. Spleen: Normal. Adrenals: Normal. Pancreas: Unremarkable. Kidneys: No contour abnormality or focal renal lesion. Renal collecting systems: Nonobstructing calculus in the right lower pole measures 0.6 cm. No calculus on the left. Moderate bilateral hydronephrosis. The right ureter is only minimally distended and difficult to follow into the urinary bladder. Some calcifications are present in the right side of the lower pelvis. The left ureter is moderately distended and a calcification focus on image 3:126 is probably an obstructing calculus measuring as large as 0.5 cm in transverse dimension. Free fluid: None. Retroperitoneal/mesenteric lymphadenopathy: None. Aorta: Normal caliber. Bowel: Normal caliber. Abdominal wall: Sacral stimulator device is present. Postoperative gas bubbles present within the subcutaneous soft tissues of the right mid abdominal wall, probably related to an injection site. No other abnormality within the abdominal wall. Bladder: No calculi or filling defects. Pelvic organs/viscera: No mass identified. Pelvic lymphadenopathy: None. Osseous structures: Minor anterior wedge deformity at the T12 level. There is a transitional S1 level. IMPRESSION: Bilateral hydronephrosis. Obstructing calculus in the left distal ureter. The right distal ureter is difficult to follow into the bladder. Report Dictated on Electronically Signed By: Guillermo Calvin MD Electronically Signed Date/Time: 03/05/2024 9:35 AM EDT [facility] [employer] [facility] Study observation (narrative) [facility] CT Abdomen WO contrastOrdere d By: Guillermo Calvin on 03-05-2024 [facility] Work Phone: Consulton 03-05-2024 Consult ------- Attestation signed by Katherine Bowen MD at 03/05/2024 4:08 PM I reviewed history , exam and discussed with Resident. I have independently evaluated patient and agree with the evaluation and plan. Katherine Bowen MD 03/05/24 4:08 PM Urology Inpatient Consultation Patient Name: Eren Merchant Date of : 1960 Admission Date: 03/04/2024 2:14 PM Today's Date: 03/05/2024 Reason for consultation: bilateral hydronephrosis Chief complaint: UTI, MANJIT HISTORY OF PRESENT ILLNESS: The patient is a 63 y.o. female with history of CKD3a, hypothyroidism, overactive bladder s/p Interstim, thymoma presents with bilateral hydronephrosis on renal US. She presented with seizure like activity and syncope. She has an MANJIT and concern for UTI. She is being treated with rocephin. She is complaining of frequency of urination but this has been going on for several years. She had an interstim placed by an outside urologist but this has not helped these symptoms. She states that previous PVRs at the urologist office have been low. PVR this AM was 20 ml's. She is not having flank pain. PAST MEDICAL HISTORY: Past Medical History: Diagnosis Date Arthritis Cancer (CMS/HCC) (HCC) Disease of thyroid gland PAST SURGICAL HISTORY: Past Surgical History: Procedure Laterality Date BACK SURGERY CHOLECYSTECTOMY COLON SURGERY THYMECTOMY stated per patient, for cancer removal ALLERGIES: Azithromycin and Seasonal CURRENT MEDICATIONS: Current Facility-Administered Medications: acetaminophen (Tylenol) tablet 650 mg, 650 mg, Oral, q6h PRN OR acetaminophen (Tylenol) suppository 650 mg, 650 mg, Rectal, q6h PRN, Maurilio Groves MD amitriptyline (Elavil) tablet 50 mg, 50 mg, Oral, Nightly, Maurilio Groves MD, 50 mg at 03/04/242020 [Held by provider] aspirin EC tablet 81 mg, 81 mg, Oral, Daily, Maurilio Groves MD Calcium Carb-Cholecalciferol 500-5 MG-MCG per tablet 1 tablet, 1 tablet, Oral, BID, Maurilio Groves MD, 1 tablet at 03/05/24 0815 cefTRIAXone (Rocephin) 1,000 mg in sodium chloride 0.9 % 50 mL IVPB Mini-Bag Plus, 1,000 mg, IntraVENous, q24h, Maurilio Groves MD, Stopped at 03/05/24 0431 fludrocortisone (Florinef) tablet 0.1 mg, 0.1 mg, Oral, BID, Maurilio Groves MD, 0.1 mg at 03/05/24 1023 heparin injection 5,000 Units, 5,000 Units, SubCUTAneous, 3 times per day, Maurilio Groves MD, 5,000 Units at 03/05/24 0600 influenza vaccine A&B surf ant adjuvanted (Fluad) HIGH-DOSE injection 0.5 mL, 0.5 mL, IntraMUSCular, Once, Maurilio Groves MD levothyroxine (Synthroid, Levoxyl) tablet 100 mcg, 100 mcg, Oral, qAM AC, Maurilio Groves MD, 100 mcg at 03/05/24 0600 melatonin tablet 3 mg, 3 mg, Oral, Nightly, Maurilio Groves MD [Held by provider] mycophenolate (Cellcept) capsule 1,000 mg, 1,000 mg, Oral, q AM, Maurilio Groves MD [Held by provider] mycophenolate (Cellcept) capsule 500 mg, 500 mg, Oral, qPM, Maurilio Groves MD ondansetron ODT (Zofran-ODT) disintegrating tablet 4 mg, 4 mg, Oral, q8h PRN OR ondansetron (Zofran) injection 4 mg, 4 mg, IntraVENous, q6h PRN, Maurilio Groves MD pantoprazole (ProtoNix) EC tablet 40 mg, 40 mg, Oral, BID AC, Maurilio Groves MD, 40 mg at 03/05/24 0600 polyethylene glycol (PEG) 3350 (Miralax) packet 17 g, 17 g, Oral, Daily PRN, Maurilio Groves MD predniSONE (Deltasone) tablet 5 mg, 5 mg, Oral, Daily, Maurilio Groves MD, 5 mg at 03/05/24 0815 sodium chloride 0.9 % infusion, 5-250 mL/hr, IntraVENous, PRN, Maurilio Groves MD sodium chloride 0.9% (NS) flush 5-40 mL, 5-40 mL, IntraVENous, q12h, Maurilio Groves MD, 10 mL at 03/05/24 0245 sodium chloride 0.9% (NS) flush 5-40 mL, 5-40 mL, IntraVENous, PRN, Maurilio Groves MD sucralfate (Carafate) tablet 1 g, 1 g, Oral, 4x daily PRN, Maurilio Groves MD FAMILY HISTORY: No family history on file. Social History: Social History Tobacco Use Smoking status: Never Smokeless tobacco: Never Substance Use Topics Alcohol use: Never ROS: Constitutional: negative for chills and fevers HEENT: no blurry vision or eye redness Respiratory: negative for hemoptysis and shortness of breath Cardiovascular: negative for dyspnea and syncope Gastrointestinal: negative for jaundice, nausea and vomiting Genitourinary:negative for dysuria and hematuria Hematologic/lymphatic: negative for bleeding Integumentary: no new bruises or lesions Musculoskeletal:negative for muscle weakness Neurological: negative for coordination problems and seizures All other systems negative Physical Exam: Vitals: Vitals: 03/05/24 0257 03/05/24 0300 03/05/24 0351 03/05/24 0807 BP: (!) 85/60 (!) 83/55 112/75 128/90 BP Location: Left arm Left arm Left arm Left arm Patient Position: Sitting Standing Lying Lying Pulse: (!) 124 (!) 134 114 112 Resp: 18 18 Temp: 36.3 ?C (97.4 ?F) 36.1 ?C (97 ?F) Te (more content not included)... Normal [facility] Consult General Neurology Co nsult Patient: Eren Merchant Date of : 1960 Acct: [id number] PCP: Priyanka Smtih Date of Admission: 03/04/2024 Date of Service: Pt seen/examined on 03/05/24 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: Seizure like activity History Of Present Illness: 63 y.o. 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 Patient has had two recent episodes which prompted her transfer to [facility] for further workup. On 02/26/24, patient was talking to her dad on the phone. The next thing she remembers is lying on the ground. No warning. She believes she had LOC but does not know duration. Estimates less than one minute. She denies denies tongue bite or b/b incontinence. No clear post-ictal symptoms. Her BP's run low at times and she is on propranolol. PCP attributed to possible hypotension. She had another episode while at the urologist's office on 03/03/24. She walked up to call center receptionist desk, all of a sudden both arms started shaking, she felt weak, and next thing she knew she was on the ground. Witnesses stated patient had full body shaking. Unknown duration. Patient denies LOC, tongue bite, or b/b incontinence. She remembers the entire episode. Patient has no history of seizures. She does transient episodes of dizziness (light-headed, no vertigo), sometimes associated with worsening tremor and falls. Seizure Risk Factors: 1. Head trauma (no); 2. PHYSICIAN OFFICE NURSE infections (no); 3. Family history of seizures (yes, brother); 4. Developmental delay (no); 5. Febrile seizures (no); 6. PHYSICIAN OFFICE NURSE tumors (no); 7. PHYSICIAN OFFICE NURSE vascular disease (no); 8. Significant medical history: CKD, ILD, current complicated UTI; 9. and early development: normal and early development Patient presented to [facility] and was found to be tachycardic. She had a WBC of 20, plts 455, sodium 130 and MANJIT (Scr 3.1). CXR with L basilar atelectasis. D Dimer elevated at 3.44, CTA chest negative for PE. CT Head negative for acute abn. UA concerning for infection and patient was started on empiric rocephin. CT A/P with b/l hydroureteronephrosis, urethritis, and cystitis. There was also concern for possible ureteral malignancy and for this concern [employer] urology recommended transfer to [facility]. As far as neurologic history: Patient was seen by outpatient neurology, Dr. Roberts, on 01/13/24 for tremor, tardive dyskinesia, and drug induced PD (reglan). Patient reported 1.5 years of b/l hand shaking/tremors and abnormal tongue movements. She was prescribed propranolol for tremors by her PCP which helped some (mostly with abnormal mouth movements). The plan at that time was to wean off reglan and then reassess for improvement in PD symptoms. Since of this week per propranolol was stopped for concern of hypotension. Past Medical History: Past Medical History: Diagnosis Date Arthritis Cancer (CMS/HCC) (HCC) Disease of thyroid gland Past Surgical History: Past Surgical History: Procedure Laterality Date BACK SURGERY CHOLECYSTECTOMY COLON SURGERY THYMECTOMY stated per patient, for cancer removal Home Medications: Prior to Admission medications Medication Sig Start Date End Date Taking? Authorizing Provider Calcium Carb-Cholecalciferol 600-10 MG-MCG tablet Take 1 tablet by mouth in the morning and 1 tablet in the evening. 02/25/23 Yes Historical Provider, ondansetron (Zofran) 4 MG tablet Take 4 mg by mouth every 8 hours as needed for nausea or vomiting. New prescription, unsure of times or dose Yes Historical Provider, amitriptyline (Elavil) 75 MG tablet Take 75 mg by mouth Nightly. Historical ProviderMD Apoaequorin (Prevagen) 10 MG capsule Take 10 mg by mouth daily. Historical Provider, aspirin 81 MG EC tablet Take 81 mg by mouth in the morning. Historical ProviderMD biotin 5000 MCG capsule Take 5,000 mcg by mouth daily. OTC per patient Historical ProviderMD levothyroxine (Synthroid, Levoxyl) 75 MCG tablet Take 75 mcg by mouth every morning (before breakfast). Historical ProviderMD mycophenolate (Cellcept) 500 MG tablet Take 1,000 mg by mouth 2 times daily. 1000 mg in morning and 500 at night per patient Historical ProviderMD predniSONE (Deltasone) 5 MG tablet Take 5 mg by mouth daily. Historical ProviderMD Calcium Carbonate-Vitamin D 500-5 MG-MCG tablet Take 5 mg by mouth in the morning and 5 mg in the evening. 03/04/24 Historical ProviderMD Current Hospital Medications: Current Facility-Administered Medications: acetaminophen (Tylenol) tablet 650 mg, 650 mg, Oral, q6h PRN OR acetaminophen (Tylenol) suppository 650 mg, 650 mg, Rectal, q6h PRN, Maurilio Groves MD amitrip (more content not included)... [facility] Consult Department of Dining Room Supervisor al Medicine Gastroenterology Attending Consult Note Reason for Consult: The patient was seen in consultation at the request of Dr Groves for esophageal thickening CHIEF COMPLAINT: dizziness History Obtained From: patient HISTORY OF PRESENT ILLNESS: The patient is a 63 y.o. female with significant past medical history of immunosuppression and dysphagia transferred from [facility] for UTI with sepsis , hypotension and tachycardia. Found to have hydronephrosis. Was transferred here for urology evaluation. On CT incidentally found to have esophageal thickening. Patient has been suffering from chronic dysphagia for years and states has dysmotility. She was on alf reglan and ended up having drug induced side effects. Allergies: Azithromycin and Seasonal Current Medications: Current Facility-Administered Medications: acetaminophen (Tylenol) tablet 650 mg, 650 mg, Oral, q6h PRN OR acetaminophen (Tylenol) suppository 650 mg, 650 mg, Rectal, q6h PRN, Maurilio Groves MD amitriptyline (Elavil) tablet 50 mg, 50 mg, Oral, Nightly, Maurilio Groves MD, 50 mg at 10/19/24 2021 [Held by provider] aspirin EC tablet 81 mg, 81 mg, Oral, Daily, Maurilio Groves MD Calcium Carb-Cholecalciferol 500-5 MG-MCG per tablet 1 tablet, 1 tablet, Oral, BID, Maurilio Groves MD, 1 tablet at 03/04/242020 cefTRIAXone (Rocephin) 1,000 mg in sodium chloride 0.9 % 50 mL IVPB Mini-Bag Plus, 1,000 mg, IntraVENous, q24h, Maurilio Groves MD, Stopped at 03/05/24 0431 fludrocortisone (Florinef) tablet 0.1 mg, 0.1 mg, Oral, BID, Maurilio Groves MD, 0.1 mg at 03/04/24 2213 heparin injection 5,000 Units, 5,000 Units, SubCUTAneous, 3 times per day, Maurilio Groves MD, 5,000 Units at 03/04/24 2241 influenza vaccine A&B surf ant adjuvanted (Fluad) HIGH-DOSE injection 0.5 mL, 0.5 mL, IntraMUSCular, Once, Maurilio Groves MD levothyroxine (Synthroid, Levoxyl) tablet 100 mcg, 100 mcg, Oral, qAM AC, Maurilio Groves MD melatonin tablet 3 mg, 3 mg, Oral, Nightly, Maurilio Groves MD [Held by provider] mycophenolate (Cellcept) capsule 1,000 mg, 1,000 mg, Oral, q AM, Maurilio Groves MD [Held by provider] mycophenolate (Cellcept) capsule 500 mg, 500 mg, Oral, qPM, Maurilio Groves MD ondansetron ODT (Zofran-ODT) disintegrating tablet 4 mg, 4 mg, Oral, q8h PRN OR ondansetron (Zofran) injection 4 mg, 4 mg, IntraVENous, q6h PRN, Maurilio Groves MD pantoprazole (ProtoNix) EC tablet 40 mg, 40 mg, Oral, BID AC, Maurilio Groves MD polyethylene glycol (PEG) 3350 (Miralax) packet 17 g, 17 g, Oral, Daily PRN, Maurilio Groves MD predniSONE (Deltasone) tablet 5 mg, 5 mg, Oral, Daily, Maurilio Groves MD sodium chloride 0.9 % infusion, 5-250 mL/hr, IntraVENous, PRN, Maurilio Groves MD sodium chloride 0.9% (NS) flush 5-40 mL, 5-40 mL, IntraVENous, q12h, Maurilio Groves MD, 10 mL at 03/05/24 0245 sodium chloride 0.9% (NS) flush 5-40 mL, 5-40 mL, IntraVENous, PRN, Maurilio Groves MD sucralfate (Carafate) tablet 1 g, 1 g, Oral, 4x daily PRN, Maurilio Groves MD Past Medical History: Active Ambulatory Problems Diagnosis Date Noted Esophageal dysmotility 07/31/2020 Hyponatremia 06/14/2018 Chronic interstitial cystitis 03/03/2024 ILD (interstitial lung disease) (FORM[facility]LY [facility]) 03/25/2020 Lung nodules 02/12/2020 NSIP (nonspecific interstitial pneumonitis) ([facility]) 10/30/2022 Stage 3a chronic kidney disease (FORM[facility]) 01/12/2023 Post-menopausal bleeding 11/25/2018 Acquired hypothyroidism 03/04/2024 Resolved Ambulatory Problems Diagnosis Date Noted No Resolved Ambulatory Problems Past Medical History: Diagnosis Date Arthritis Cancer (CMS/HCC) (HCC) Disease of thyroid gland Past Surgical History: Social History Socioeconomic History Marital status: Spouse name: Not on file Number of children: Not on file Years of education: Not on file Highest education level: Not on file Occupational History Not on file Tobacco Use Smoking status: Never Smokeless tobacco: Never Vaping Use Vaping status: Never Used Substance and Sexual Activity Alcohol use: Never Drug use: Never Sexual activity: Not Currently Other Topics Concern Not on file Social History Narrative Not on file Social Determinants of Health Financial Resource Strain: High Risk (03/26/2020) Received from [facility] Overall Financial Resource Strain (CARDIA) Difficulty of Paying Living Expenses: Very hard Food Insecurity: No Food Insecurity (03/26/2020) Received from [facility] Hunger Vital Sign Worried About Running Out of Food in the Last Year: Never true Ran Out of Food in the Last Year: Never true Transportation Needs: No Transportation Needs (03/26/2020) Received from [facility] PRAPARE - Transportation Lack of Transportation (Medical): No Lack of Transportation (Non-Medical): No Physical Activity: Inactive (06/22/2023) Received from [facility] Exercise Vital Sign Days of Exercise per Week: 0 days Minutes of Exercise per Session: 0 m (more content not included)... Normal [facility] ECG 12-LEADon 03-05-2024 ECG 12-LEAD IMPRESSION: Sinus tachycardia Low voltage, precordial leads Borderline T abnormalities, anterior leads Electronically Signed On 03-05-2024 17:08:28 EDT by Fatemeh Watkins Normal [facility] IDNon 03-05-2024 IDN Problem: Pain - Adul t Goal: Verbalizes/displays adequate comfort level or baseline comfort level Outcome: Progressing Problem: Safety - Adult Goal: Free from fall injury Outcome: Progressing Problem: Discharge Planning Goal: Discharge to home or other facility with appropriate resources Outcome: Progressing Problem: Chronic Conditions and Co-morbidities Goal: Patient's chronic conditions and co-morbidity symptoms are monitored and maintained or improved Outcome: Progressing Normal [facility] Laboratory - Chemistry and C hemistry - challengeon 03-05-2024 TSH Qn 3.641 m[IU]/L [employer] No Panel InformationOrdered By: Fatemeh Watkins on 03-05-2024 P [place] -11 degrees [employer] Phone: VA Interval 151 ms [employer] Phone: QRS [place] -9 degrees [employer] Phone: QRSD Interval 86 ms [employer] Phone: QT Interval 303 ms [employer] Phone: [phone] QTC Interval 403 ms [employer] Phone: [phone] T Wave [place] 42 degrees [employer] Phone: [employer] Phone: [phone] No Panel Informationon 03-05 Sinus tachycardia Low voltage, precordial leads Borderline T abnormalities, anterior leads Electronically Signed On 03-05-2024 17:08:28 EDT by Fatemeh Weaver MD - 03/05/2024 IMPRESSION: Sinus tachycardia Low voltage, precordial leads Borderline T abnormalities, anterior leads Electronically Signed On 03-05-2024 17:08:28 EDT by Fatemeh Watkins [facility] Nursing Noteon 03-05-2024 Nursing Note Pt ambulated to rest room with RN assist x 1, voided twice adequately. Returned to bed and transport taking pt to room. Normal [facility] Nursing Note Pt doing well, awake and drinking water, no complaints, attempted bedpan but was unable, pt states she can wait to try the restroom in a little while. Report called and in for transport. Normal [facility] Nursing Note MRI screening comple te. Remote for bladder stimulator requested to be brought in alone with cards for [employer] and page makeup system operator. Patient said they could be brought in on Wednesday. Normal [facility] Nursing Note Patient had orthosta tic vitals taken, blood pressure standing was 83/55. Rapid notified, told to reach out to doctor. Doctor notified and no further orders placed. 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 Patient taken to in stable condition. Normal [facility] Op Noteon 03-05-2024 Op Note Javier Rosenberg 03/05/2024 at 5:49 PM UROLOGY OPERATIVE REPORT PATIENT NAME: Eren Merchant DATE OF : 1960 TODAY'S DATE: 03/05/2024 PreOp Dx:: bilateral ureteral calculus with uti PostOp Dx: Same Operation : cystoscopy bilateral stent placement Surgeon MD Araceli Rosenberg Anesthesia:general lma Ebl: Drains 6fr X 24cmJJ bilateral Dowd , Specimen: Complications None; patient tolerated the procedure well. Findings: INDICATIONS: Eren Merchant , is a 63 y.o. female who presents with bilateral hydronephrosis. She was sent from [facility] for possible ureteral tumor. Repeat image shows bilateral hydronephrosis and bilateral ureteral calculus. She has low bp. She presents for bilateral stent placement.. Eren Merchant presents for bilateral stent placement. The risks benefits and alternatives were explained and the patient wishes to proceed. PROCEDURE: Eren Merchant Was brought to the operating room. Thorough time out was performed and everyone present was in agreement. Patient was placed on OR table. Anesthesia and lines were maintained by the anesthesia team. Patient was placed in the dorsal lithotomy position. Prepped and draped in usual fashion. Pressure points were padded. A cystourethroscope was inserted through the urethra and the bladder was inspected. There were no masses or lesions. Left Then a 0.035 Brilliant wire was advanced to the level of the kidney. A 6 fr x 24cmJJ stent was advanced over the wire through the cystoscope under fluoroscopic visualization. Once in position the wire was removed. A good curl was noted in the kidney and the bladder. Right Then a 0.035 Brilliant wire was advanced to the level of the kidney. A 6fr x 24cmJJ stent was advanced over the wire through the cystoscope under fluoroscopic visualization. Once in position the wire was removed. A good curl was noted in the kidney and the bladder. The bladder was emptied and patient awoken from anesthesia. Katherine Bowen MD 03/05/24 5:49 PM Normal [facility] THYROID STIMULATING HORMONEo n 03-05-2024 THYROID STIMULATING HORMONE 3.641 uIU/mL Normal 0.465-4.68 0 [facility] Comment on above: Performed By: #### L [id number], [id number] ####[employer]: LACY OROSCO ([id number])[address] TSH Qnon 03-05-2024 Interpretation and review of laboratory results Normal [facility] URINE CULTUREon 03-05-2024 Bacteria identified Cx Nom (U) URINE CULTURE Reference No growth (<1,000 CFU/mL) [ S = SUSCEPTIBLE R = RESISTANT I = INTERMEDIATE S-DD = Susceptible-dose dependent NS = Non-susceptible NO = No Interpretation ] Normal [facility] Comment on above: Performed By: #### L [id number] #### [employer] Builder: LACY OROSCO ([phone]) [facility]) [address] [place] [address] Urine Cultureon 03-05-2024 URC Proteus mirabilis Margaret Count 80,000-100,000 Proteus mirabilis: REACTION Ampicillin Islt MELVIN <=2 Ampicillin+Sulbac Islt MELVIN <=2 S ceFAZolin Islt MELVIN <=4 S Cefepime Islt MELVIN <=0.12 S cefTRIAXone Islt MELVIN <=0.25 S Ciprofloxacin Islt MELVIN <=0.25 S Gentamicin Islt MELVIN <=1 S levoFLOXacin Islt MELVIN <=0.12 S Nitrofurantoin Islt MELVIN 128 R Pip+Tazo Islt MELVIN <=4 S Tobramycin Islt MELVIN <=1 S TMP SMX Islt MELVIN <=20 S Normal [facility] Comment on above: Performed By: #### M 100.2200 ####[facility] [address] [place], [address] Vital signsOrdered By: Fatemeh Watkins on 03-05-2024 Heart rate 106 /min bpm [employer] Phone: Basic Metabolic Profile (BMP )on 03-04-2024 BUN/CRE 23.5 RATIO High 03-05 [facility] Comment on above: Performed By: #### L 500.2500, L100.0500 ####[facility] [address] [place], [address] CA,Total 10.3 mg/dL High 8.5-10.1 [facility] Comment on above: Performed By: #### L 500.2500, L100.0500 ####[facility] [address] [place], [address] Chloride [Moles/Vol] 105 mmol/L Normal 98-107 [facility] Comment on above: Performed By: #### L 500.2500, L100.0500 ####[facility] [address] [place], [address] CO2 [Moles/Vol] 19.0 mmol/L Low 21.0-32.0 [facility] Comment on above: Performed By: #### L 500.2500, L100.0500 ####[facility] [address] [place], [address] Creatinine [Mass/Vol] 2.60 mg/dL High 0.55-1.02 [facility] Comment on above: Result Comment: The validity of the calculated GFR GFRAA in patients over 70 years has not been determined. Clinical correlation is essential. Performed By: #### L 500.2500, L100.0500 ####[facility] [address] [place], [address] ECRCL 22.76 ml/min Normal [facility] Comment on above: Performed By: #### L 500.2500, L100.0500 ####[facility] [address] [place], [address] EST GFR - AA 24 mL/min Low >60 [facility] Comment on above: Result Comment: Afri can [place] GFR Calc Performed By: #### L 500.2500, L100.0500 ####[facility] [address] [place], [address] GAP 10 Normal 5-15 [facility] Comment on above: Performed By: #### L 500.2500, L100.0500 ####[facility] [address] [place], [address] GFR/1.73 sq M.predicted among non-blacks MDRD (S/P/Bld) [Vol rate/Area] 20 mL/min/{1.73_m2} Low >60 [facility] Comment on above: Result Comment: Non- GFR Calc Performed By: #### L 500.2500, L100.0500 ####[facility] [address] [place], [address] Glucose [Mass/Vol] 104 mg/dL Normal 74-106 [facility] Comment on above: Result Comment: Fast ing Glucose result from 100 to 125 mg/dL suggests IMPAIRED HOMEOSTASIS per A.D.A. criteria. Performed By: #### L 500.2500, L100.0500 ####[facility] [address] [place], [address] Potassium [Moles/Vol] 3.8 mmol/L Normal 3.5-5.1 [facility] Comment on above: Performed By: #### L 500.2500, L100.0500 ####[facility] [address] [place], [address] Sodium [Moles/Vol] 134 mmol/L Low 136-145 [facility] Comment on above: Performed By: #### L 500.2500, L100.0500 ####[facility] [address] [place], [address] Urea nitrogen [Mass/Vol] 61 mg/dL High 7-18 [facility] Comment on above: Performed By: #### L 500.2500, L100.0500 ####[facility] [address] [place], [address] CBC W Auto Differential pane l (Bld)Ordered By: Ching Azar on 03-04-2024 Basophils (Bld) [#/Vol] 0.1 10*3/uL 0.0 - 0.2 10*3/uL [facility] Basophils/100 WBC (Bld) 0.3 % 0.0 - 2.0 % [facility] [employer] Eosinophils (Bld) [#/Vol] 0.1 10*3/uL 0.0 - 0.5 10*3/uL [facility] Eosinophils/100 WBC (Bld) 0.3 % 0.0 - 6.0 % [facility] Erythrocyte distribution width (RBC) [Ratio] 15.2 % High 11.5 - 15.0 % [facility] Hematocrit (Bld) [Volume fraction] 37.2 % 35.0 - 47.0 % [facility] Hemoglobin (Bld) [Mass/Vol] 12 g/dL 11.7 - 16.0 g/dL [facility] Immature granulocytes (Bld) [#/Vol] 0.2 10*3/uL High NINF - 0.1 10*3/uL [facility] Immature granulocytes/100 WBC (Bld) 1.2 % 0.0 - 2.0 % [facility] [employer] Interpretation and review of laboratory results Abnormal [facility] Lymphocytes (Bld) [#/Vol] 1.9 10*3/uL 1.0 - 4.3 10*3/uL [facility] Lymphocytes/100 WBC (Bld) 12.3 % Low 15.0 - 45.0 % [facility] MCH (RBC) [Entitic mass] 25.8 pg Low 26.0 - 34.0 pg [facility] MCHC (RBC) [Mass/Vol] 32.3 % 30.5 - 36.0 % [facility] MCV (RBC) [Entitic vol] 79.8 fL 77.0 - 99.0 fL [facility] Monocytes (Bld) [#/Vol] 1.7 10*3/uL High 0.0 - 0.9 10*3/uL [facility] Monocytes/100 WBC (Bld) 11.2 % 5.0 - 13.0 % [facility] Neutrophils (Bld) [#/Vol] 11.4 10*3/uL High 1.8 - 7.5 10*3/uL [facility] Neutrophils/100 WBC (Bld) 74.7 % 38.0 - 82.0 % [facility] Nucleated RBC/100 WBC (Bld) [Ratio] 0 % [facility] [employer] Platelet mean volume (Bld) [Entitic vol] 10.3 fL 9.0 - 12.7 fL [facility] Platelets (Bld) [#/Vol] 421 10*3/uL 140 - 440 10*3/uL [facility] RBC (Bld) [#/Vol] 4.66 10*6/uL 3.80 - 5.20 10*6/uL [facility] WBC (Bld) [#/Vol] 15.3 10*3/uL High 3.6 - 10.7 10*3/uL [facility] CBC WITH AUTO DIFFERENTIALon 03-04-2024 Basophils (Bld) [#/Vol] 0.1 10*3/uL Normal 0.0-0.2 [facility] Comment on above: Performed By: #### L [id number] #### [employer]: LACY OROSCO ([id number]) [facility] [address] [place] [address] Basophils/100 WBC (Bld) 0.3 % Normal 0.0-2.0 [facility] Comment on above: Performed By: #### L [id number] #### [employer]: LACY OROSCO ([phone]) [facility]) [address] [place] [address] Eosinophils (Bld) [#/Vol] 0.1 10*3/uL Normal 0.0-0.5 [facility] Comment on above: Performed By: #### L [id number] #### [employer]: LACY OROSCO ([id number]) [facility]) [address] [place] [address] Eosinophils/100 WBC (Bld) 0.3 % Normal 0.0-6.0 [facility] Comment on above: Performed By: #### L [id number] #### [employer]: LACY OROSCO ([phone]) [facility]) [address] [place] [address] Erythrocyte distribution width (RBC) [Ratio] 15.2 % High 11.5-15.0 [facility] Comment on above: Performed By: #### L [id number] #### [employer]: LACY OROSCO ([id number]) [facility]) [address] [place] [address] Hematocrit (Bld) [Volume fraction] 37.2 % Normal 35.0-47.0 [facility] Comment on above: Performed By: #### L [id number] #### [employer]: LACY OROSCO ([id number]) [facility]) [address] [place] [address] Hemoglobin (Bld) [Mass/Vol] 12.0 g/dL Normal 11.7-16.0 [facility] Comment on above: Performed By: #### L [id number] #### [employer]: LACY OROSCO ([id number]) [facility]) [address] [place] [address] IMMATURE GRANS % 1.2 % Normal 0.0-2.0 [facility] Comment on above: Performed By: #### L [id number] #### [employer]: LACY [id number]) [facility]) [address] [place] [address] IMMATURE GRANS ABSOLUTE 0.2 10*3/uL High <0.1 [facility] Comment on above: Performed By: #### L [id number] #### [employer]: LACY OROSCO ([phone]) [facility]) [address] [place] [address] Lymphocytes (Bld) [#/Vol] 1.9 10*3/uL Normal 1.0-4.3 [facility] Comment on above: Performed By: #### L [id number] #### [employer]: LACY OROSCO ([id number]) [facility]) [address] [place] [address] Lymphocytes/100 WBC (Bld) 12.3 % Low 15.0-45.0 [facility] Comment on above: Performed By: #### L [id number] #### [employer]: LACY OROSCO ([phone]) [facility]) [address] [place] [address] MCH (RBC) [Entitic mass] 25.8 pg Low 26.0-34.0 [facility] Comment on above: Performed By: #### L [id number] #### [employer]: LACY OROSCO ([phone]) [facility]) [address] [place] [address] MCHC 32.3 % Normal 30.5-36.0 [facility] Comment on above: Performed By: #### L [id number] #### [employer]: LACY OROSCO ([phone]) [facility]) [address] [place] [address] MCV (RBC) [Entitic vol] 79.8 fL Normal 77.0-99.0 [facility] Comment on above: Performed By: #### L [id number] #### [employer]: LACY OROSCO ([phone]) [facility]) [address] [place] [address] [place] Monocytes (Bld) [#/Vol] 1.7 10*3/uL High 0.0-0.9 [facility] Comment on above: Performed By: #### L [id number] #### [employer] Builder: LACY OROSCO ([id number]) [facility]) [address] [place] [address] Monocytes/100 WBC (Bld) 11.2 % Normal 5.0-13.0 [facility] Comment on above: Performed By: #### L [id number] #### [employer] Builder: LACY OROSCO ([id number]) [facility]) [address] [place] [address] [place] NEUTROPHILS ABSOLUTE 11.4 10*3/uL High 1.8-7.5 [facility] Comment on above: Performed By: #### L [id number] #### [employer] Builder: LACY OROSCO ([id number]) [facility]) [address] [place] [address] Neutrophils/100 WBC (Bld) 74.7 % Normal 38.0-82.0 [facility] Comment on above: Performed By: #### L [id number] #### [employer] Builder: LACY OROSCO ([phone]) [facility]) [address] [place] [address] NRBC 0.0 /100 WBCs Normal 0.0-2.0 [facility] Comment on above: Performed By: #### L [id number] #### [employer] Builder: LACY OROSCO ([phone]) [facility]) [address] [place] [address] Platelet mean volume (Bld) [Entitic vol] 10.3 fL Normal 9.0-12.7 [facility] Comment on above: Performed By: #### L [id number] #### [employer] Builder: LACY OROSCO ([id number]) [facility]) [address] [place] [address] [place] Platelets (Bld) [#/Vol] 421 10*3/uL Normal 140-440 [facility] Comment on above: Performed By: #### L [id number] #### [employer] Builder: LACY OROSCO ([id number]) [facility]) [address] [place] [address] RBC (Bld) [#/Vol] 4.66 10*6/uL Normal 3.80-5.20 [facility] Comment on above: Performed By: #### L [id number] #### [employer] Builder: LACY OROSCO ([id number]) [facility]) [address] [place] [address] WBC (Bld) [#/Vol] 15.3 10*3/uL High 3.6-10.7 [facility] Comment on above: Performed By: #### L [id number] #### [employer] Builder: LACY OROSCO ([id number]) [facility]) [address] [place] [address] CBC-Complete Blood Cnt No Di on 03-04-2024 Erythrocyte distribution width (RBC) [Ratio] 15.4 % High 11.6-14.6 [facility] Comment on above: Performed By: #### L 500.2500, L100.0500 ####[facility] [address] [facility] [place], [address] Hematocrit (Bld) [Volume fraction] 37.6 % Normal 37-47 [facility] Comment on above: Performed By: #### L 500.2500, L100.0500 ####[facility] [address] [place], [address] Hemoglobin (Bld) [Mass/Vol] 11.6 g/dL Low 12.0-15.0 [facility] Comment on above: Performed By: #### L 500.2500, L100.0500 ####[facility] [address] [facility] [place], [address] MCH (RBC) [Entitic mass] 25.4 pg Low 27.0-32.0 [facility] Comment on above: Performed By: #### L 500.2500, L100.0500 ####[facility] [address] [place], [address] MCHC (RBC) [Mass/Vol] 30.9 g/dL Low 32-36 [facility] Comment on above: Performed By: #### L 500.2500, L100.0500 ####[facility] [address] [place], [address] MCV (RBC) [Entitic vol] 82.3 fL Normal 81-99 [facility] Comment on above: Performed By: #### L 500.2500, L100.0500 ####[facility] [address] [place], [address] Platelet mean volume (Bld) [Entitic vol] 10.3 fL Normal 6.2-12.0 [facility] Comment on above: Performed By: #### L 500.2500, L100.0500 ####[facility] [address] [place], [address] Platelets (Bld) [#/Vol] 324 10*3/uL Normal 150-450 [facility] Comment on above: Performed By: #### L 500.2500, L100.0500 ####[facility] [address] [place], [address] RBC (Bld) [#/Vol] 4.57 10*6/uL Normal 4.2-5.4 [facility] Comment on above: Performed By: #### L 500.2500, L100.0500 ####[facility] [address] [place], [address] RDW SD 46.0 fl High 35.1-43.9 [facility] Comment on above: Performed By: #### L 500.2500, L100.0500 ####[facility] [address] [place], [address] WBC (Bld) [#/Vol] 16.9 10*3/uL High 4.4-11.0 [facility] Comment on above: Performed By: #### L 500.2500, L100.0500 ####[facility] [address] [place], [address] COMPREHENSIVE METABOLIC PANE Ghanshyam 03-04-2024 Albumin [Mass/Vol] 4.0 g/dL Normal 3.5-5.0 [facility] Comment on above: Performed By: #### L [id number] ####[employer]: LACY OROSCO ([phone])[facility])[address] [place] [address] ALP [Catalytic activity/Vol] 96 U/L Normal 38-126 [facility] Comment on above: Performed By: #### L AB17 ####[employer]: LACY OROSCO ([phone])[facility] ([facility])[address] [place] [address] ALT [Catalytic activity/Vol] 17 U/L Normal 0-34 [facility] Comment on above: Performed By: #### L AB17 ####[employer]: LACY OROSCO ([phone])[facility])[address] [place] [address] Anion gap [Moles/Vol] 9 mmol/L Normal 3-13 [facility] Comment on above: Performed By: #### L AB17 ####Wood Car Builder: LACY OROSCO ([phone])[facility])[address] [place] [address] AST [Catalytic activity/Vol] 27 U/L Normal 15-46 [facility] Comment on above: Performed By: #### L AB17 ####Wood Car Builder: LACY OROSCO ([phone])[facility])[address] [place] [address] Bilirubin [Mass/Vol] 0.5 mg/dL Normal 0.2-1.3 [facility] Comment on above: Performed By: #### L AB17 ####Wood Car Builder: LACY OROSCO ([phone])[facility] ([facility])[address] [place] [address] Calcium [Mass/Vol] 10.5 mg/dL High 8.4-10.4 [facility] Comment on above: Performed By: #### L AB17 ####Wood Car Builder: LACY OROSCO ([phone])[facility] ([facility])[address] [place] [address] Chloride [Moles/Vol] 104 mmol/L Normal 98-107 [facility] Comment on above: Performed By: #### L AB17 ####Wood Car Builder: LACY OROSCO ([phone])[facility])[address] [place] [address] CO2 [Moles/Vol] 18 mmol/L Low 22-30 [facility] Comment on above: Performed By: #### L AB17 ####Wood Car Builder: LACY OROSCO ([phone])[facility] ([facility])[address] [place] [address] Creatinine [Mass/Vol] 2.46 mg/dL High 0.52-1.04 [facility] Comment on above: Performed By: #### L AB17 ####Wood Car Builder: LACY OROSCO ([phone])[facility])[address] [place] [address] [place] GLOMERULAR FILTRATION RATE ML/MIN/1.73 SQ M.PREDICTED 21.3 mL/min/1.73m*2 Low >60.0 [facility] Comment on above: Result Comment: Calc ulation based on the Chronic Kidney Disease Epidemiology Collaboration (CKD-EPI) equation refit without adjustment for race Performed By: #### L AB17 ####Wood Car Builder: LACY OROSCO ([phone])[facility])[address] [place] [address] [place] Glucose [Mass/Vol] 111 mg/dL High 70-100 [facility] Comment on above: Performed By: #### L AB17 ####Wood Car Builder: LACY [phone])[facility] ([facility])[address] [place] [address] Potassium [Moles/Vol] 4.1 mmol/L Normal 3.5-5.1 [facility] Comment on above: Performed By: #### L AB17 ####Wood Car Builder: LACY OROSCO ([phone])[facility] ([facility])[address] [place] [address] Protein [Mass/Vol] 7.7 g/dL Normal 6.3-8.2 [facility] Comment on above: Performed By: #### L AB17 ####Wood Car Builder: LACY OROSCO ([phone])[facility] ([facility])[address] [place] [address] Sodium [Moles/Vol] 131 mmol/L Low 135-145 [facility] Comment on above: Performed By: #### L AB17 ####Wood Car Builder: LACY OROSCO ([phone])[facility] ([facility])[address] [place] [address] Urea nitrogen [Mass/Vol] 58 mg/dL High 7-17 [facility] Comment on above: Performed By: #### L AB17 ####Wood Car Builder: LACY OROSCO ([phone])[facility] ([facility])[address] [place] [address] Comprehensive metabolic 1998 panelon 03-04-2024 Albumin [Mass/Vol] 4 g/dL 3.5 - 5.0 g/dL [facility] ALP [Catalytic activity/Vol] 96 U/L 38 - 126 U/L [facility] ALT [Catalytic activity/Vol] 17 U/L 0 - 34 U/L [facility] Anion gap [Moles/Vol] 9 mmol/L 3 - 13 mmol/L [facility] AST [Catalytic activity/Vol] 27 U/L 15 - 46 U/L [facility] Bilirubin [Mass/Vol] 0.5 mg/dL 0.2 - 1 .3 mg/dL [facility] Calcium [Mass/Vol] 10.5 mg/dL High 8.4 - 10. 4 mg/dL [facility] Chloride [Moles/Vol] 104 mmol/L 98 - 10 7 mmol/L [facility] CO2 [Moles/Vol] 18 mmol/L Low 22 - 30 mmol/L [facility] Creatinine [Mass/Vol] 2.46 mg/dL High 0.52 - 1.04 mg/dL [facility] GFR/1.73 sq M.predicted (S/P/Bld) [Vol rate/Area] 21.3 mL/min Low - PINF [facility] Comment on above: Calculation based on the Chronic Kidney Disease Epidemiology Collaboration (CKD-EPI) equation refit without adjustment for race Glucose [Mass/Vol] 111 mg/dL High 70 - 100 mg/dL [facility] Interpretation and review of laboratory results Abnormal [facility] Potassium [Moles/Vol] 4.1 mmol/L 3.5 - 5.1 mmol/L [facility] Protein [Mass/Vol] 7.7 g/dL 6.3 - 8.2 g/dL [facility] Sodium [Moles/Vol] 131 mmol/L Low 135 - 145 mmol/L [facility] Urea nitrogen [Mass/Vol] 58 mg/dL High 7 - 17 mg/dL [facility] US Kidneyon 03-04-2024 1. Mild bilateral hydronephrosis. Report Dictated on Electronically Signed By: Maxwell Levi MD Electronically Signed Date/Time: 03/04/2024 11:10 PM [facility] Patient Name: ER[facility]USTILLO : 1960 [id number] Exam Date/Time: 03/04/2024 23:08 Procedure: US RENAL COMPLETE Ordering Provider: GROVES DENI Reason For Exam: assess degree of hydronephrosis in pt with MANJIT on CKD ULTRASOUND OF KIDNEYS CLINICAL INDICATION: assess degree of hydronephrosis in pt with MANJIT on CKD TECHNIQUE: Real-time ultrasound of the kidneys. COMPARISON: None. FINDINGS: Right kidney measures 10.3 x 4.9 x 4.3 cm. Renal cortical echotexture within normal limits. Mild dilatation of collecting system. No intrarenal calculi or abnormal perinephric fluid collection. Left kidney measures 9.4 x 4.9 x 4.3 cm. Renal cortical echotexture within normal limits. Mild dilatation of collecting system. No intrarenal calculi or abnormal perinephric fluid collection. Urinary bladder empty and not adequately visualized or evaluated. [facility] Maxwell Levi MD - 03/04/2024 Patient Name: EREN MERCHANT : 1960 Exam Date/Time: 03/04/2024 23:08 Procedure: US RENAL COMPLETE Ordering Provider: GROVES DENI Reason For Exam: assess degree of hydronephrosis in pt with MANJIT on CKD ULTRASOUND OF KIDNEYS CLINICAL INDICATION: assess degree of hydronephrosis in pt with MANJIT on CKD TECHNIQUE: Real-time ultrasound of the kidneys. COMPARISON: None. FINDINGS: Right kidney measures 10.3 x 4.9 x 4.3 cm. Renal cortical echotexture within normal limits. Mild dilatation of collecting system. No intrarenal calculi or abnormal perinephric fluid collection. Left kidney measures 9.4 x 4.9 x 4.3 cm. Renal cortical echotexture within normal limits. Mild dilatation of collecting system. No intrarenal calculi or abnormal perinephric fluid collection. Urinary bladder empty and not adequately visualized or evaluated. IMPRESSION: 1. Mild bilateral hydronephrosis. Report Dictated on Electronically Signed By: Maxwell Levi MD Electronically Signed Date/Time: 03/04/2024 11:10 PM EDT [facility] Radiology Study observation (narrative) [facility] US KidneyOrdered By: Maxwell Levi on 03-04-2024 [facility] [employer] Work Phone: US RENAL COMPLETEon 03-04-20 24 US RENAL COMPLETE Patient Name: EREN BUSTILLO : 1960 Exam Date/Time: 03/04/2024 23:08 Procedure: US RENAL COMPLETE Ordering Provider: GROVES DENI Reason For Exam: assess degree of hydronephrosis in pt with MANJIT on CKD ULTRASOUND OF KIDNEYS CLINICAL INDICATION: assess degree of hydronephrosis in pt with MANJIT on CKD TECHNIQUE: Real-time ultrasound of the kidneys. COMPARISON: None. FINDINGS: Right kidney measures 10.3 x 4.9 x 4.3 cm. Renal cortical echotexture within normal limits. Mild dilatation of collecting system. No intrarenal calculi or abnormal perinephric fluid collection. Left kidney measures 9.4 x 4.9 x 4.3 cm. Renal cortical echotexture within normal limits. Mild dilatation of collecting system. No intrarenal calculi or abnormal perinephric fluid collection. Urinary bladder empty and not adequately visualized or evaluated. IMPRESSION: 1. Mild bilateral hydronephrosis. Report Dictated on Electronically Signed By: Maxwell Levi MD Electronically Signed Date/Time: 03/04/2024 11:10 PM EDT [facility] 12 Lead EKGon 03-03-2024 12 Lead EKG [facility] Cardi[facility] Services [address] [place] [address] 12 Lead EKG 03/03/24 1411 MR#: [id number] Acct: [id number] Name: EREN MERCHANT Rep #: [id number] : 1960 63 From: Mathew Parkinson MD Attending Dr: Status: DEP ER Ordering Dr: Provider,Ed P. Date: 03/03/24 Location: ED Sex: F C Admitted: Test Reason : SEIZURE Blood Pressure : / mmHG Vent. Rate : 122 BPM Atrial Rate : 122 BPM P-R Int : 128 ms QRS Dur : 084 ms QT Int : 310 ms P-R-T Axes : -25 -26 044 degrees QTc Int : 441 ms Sinus tachycardia Nonspecific ST and T wave abnormality Abnormal ECG Confirmed by Mathew Parkinson ([id number]), publishing editor ABDULKADIR LOPEZ ([id number]) on 03/06/2024 11:54:14 AM Referred By: ASAEL/MELISSA Confirmed By:Mathew Parkinson 03/06/24 1154 Date Mathew Parkinson MD CC: Dr. Jaguar Mckeon-DO Albino; Dr. Priyanka Smith MD; ED PHYSICIAN PROVIDER Signed Normal [facility] Abdomen/Pelvis without Conto n 03-03-2024 Abdomen/Pelvis without Cont [facility] Imaging Services [address] [place], [place] [address] Abdomen/Pelvis without Cont MR#: [id number] Acct: [id number] Name: EREN MERCHANT Rep #: [id number] : 1960 F 63 From: Marlee Mckeon MD PCP: Dr. Priyanka Smith MD Status: REG ER Study: Abdomen/Pelvis without Cont Date of Exam: 02/14 01/07 Exam# [id number] Ordering Dr: Jaguar Norwood DO [id number] INDICATION: Kidney Stone EXAMINATION: CT ABDOMEN AND PELVIS WITHOUT CONTRAST - CT Abdomen And Pelvis W/O Contrast Injection TECHNIQUE: Helically acquired images were obtained of the abdomen and pelvis without oral or IV contrast. The protocol utilizes one or more of the following dose reduction techniques: automated exposure control, adjustment of mA and/or kV according to patient size,and/or use of iterative reconstruction technique. IV Contrast dosage and agent: None. Oral contrast: None. RADIATION DOSAGE (If Supplied By Facility): CTDIvol = ( 10.83 ) mGy, DLP = ( 522.87 ) mGycm COMPARISON: June 08, 2018 CT of the chest dated March 03, 2024 FINDINGS: LOWER CHEST: There is a separate dedicated CT report of the chest LIVER: Homogeneous. No focal mass. GALLBLADDER AND BILIARY TREE: There is nonvisualization of the gallbladder. No intra- or extrahepatic biliary ductal dilation. PANCREAS: No focal cystic or solid mass. SPLEEN: Normal size without focal cystic or solid mass. ADRENAL GLANDS: No nodules. KIDNEYS AND URETERS: Normal renal size and position. There is contrast within the collecting system bilaterally secondary to recent CTA of the chest. There is bilateral hydroureteronephrosis. There is a low-attenuation 8 x 3 mm intraluminal filling defect within the proximal right ureter (image 58 series 601). There is circumferential wall thickening of the right proximal and left ureter. There is a left renal cyst. PERITONEUM: No ascites or free air. No other fluid collection. BOWEL: There is a small hiatal hernia. No evidence of acute appendicitis. No stomach or bowel distension. There are diverticula arising from the sigmoid colon. There are anastomotic sutures within the sigmoid colon No focal inflammatory change. LYMPH NODES: There are prominent retroperitoneal lymph nodes. VESSELS: Aorta is non-dilated. URINARY BLADDER: There is bladder wall thickening associated with adjacent stranding. REPRODUCTIVE ORGANS: No pelvic masses. ABDOMINAL WALL: No discrete abdominal or pelvic wall hernia. There is a stimulator device in place within the left lower back with an electrode traversing the sacrum left of midline. BONES: There are degenerative changes of the visualized thoracic and lumbar spine. CT/Abdomen/Pelvis without Cont IMPRESSION: Bilateral hydroureteronephrosis associated with a filling defect within the right proximal ureter may reflect a neoplastic process and bilateral ureteral wall thickening suggestive of ureteritis. Bladder wall thickening with adjacent stranding consistent with cystitis. Colonic diverticulosis. Small hiatal hernia. Electronically Signed: Marlee Mckeon MD at 16:30 EDT , CC: Dr. Jaguar Norwood DO; Dr. Priyanka Smith MD Upper Shaper: Signed Normal [facility] BNP,B-Type NATRIURETIC PEPTI Cheri 03-03-2024 Natriuretic peptide B (Bld) [Mass/Vol] 42.4 pg/mL Normal 0-100 [facility] Comment on above: Performed By: #### L 100.0100, L501.5200, L501.5425, L501.9520, L300.8000, L500.2500, L503.6620 ####[facility] [id number] [place], [address] Basic Metabolic Profile (BMP )on 03-03-2024 BUN/CRE 21.9 RATIO High 10-20 [facility] Comment on above: Order Comment: 1 Y Performed By: #### L 100.0100, L501.5200, L501.5425, L501.9520, L300.8000, L500.2500, L503.6620 #### [facility] Laboratory [address] [place], [address] CA,Total 12.1 mg/dL High 8.5-10.1 [facility] Comment on above: Order Comment: 1 Y Performed By: #### L 100.0100, L501.5200, L501.5425, L501.9520, L300.8000, L500.2500, L503.6620 #### [facility] [address] [place], [address] Chloride [Moles/Vol] 99 mmol/L Normal 98-107 [facility] Comment on above: Order Comment: 1 Y Performed By: #### L 100.0100, L501.5200, L501.5425, L501.9520, L300.8000, L500.2500, L503.6620 #### [facility] [address] [place], [address] CO2 [Moles/Vol] 20.0 mmol/L Low 21.0-32.0 [facility] Comment on above: Order Comment: 1 Y Performed By: #### L 100.0100, L501.5200, L501.5425, L501.9520, L300.8000, L500.2500, L503.6620 #### [facility] [address] [place], [address] Creatinine [Mass/Vol] 3.10 mg/dL High 0.55-1.02 [facility] Comment on above: Order Comment: 1 Y Result Comment: The validity of the calculated GFR GFRAA in patients over 70 years has not been determined. Clinical correlation is essential. Performed By: #### L 100.0100, L501.5200, L501.5425, L501.9520, L300.8000, L500.2500, L503.6620 #### [facility] [address] [place], [address] ECRCL 19.09 ml/min Normal [facility] Comment on above: Order Comment: 1 Y Performed By: #### L 100.0100, L501.5200, L501.5425, L501.9520, L300.8000, L500.2500, L503.6620 #### [facility] [address] [place], [place], [id number] (615) EST GFR - AA 19 mL/min Low >60 [facility] Comment on above: Order Comment: 1 Y Result Comment: Afri can [place] GFR Calc Performed By: #### L 100.0100, L501.5200, L501.5425, L501.9520, L300.8000, L500.2500, L503.6620 #### [facility] [address] [place], [place], [id number] (712) GAP 12 Normal 5-15 [facility] Comment on above: Order Comment: 1 Y Performed By: #### L 100.0100, L501.5200, L501.5425, L501.9520, L300.8000, L500.2500, L503.6620 #### [facility] [address] [place], [place], [id number] (728) GFR/1.73 sq M.predicted among non-blacks MDRD (S/P/Bld) [Vol rate/Area] 16 mL/min/{1.73_m2} Low >60 [facility] Comment on above: Order Comment: 1 Y Result Comment: Non- GFR Calc Performed By: #### L 100.0100, L501.5200, L501.5425, L501.9520, L300.8000, L500.2500, L503.6620 #### [facility] [address] [place], [address] Glucose [Mass/Vol] 150 mg/dL High 74-106 [facility] Comment on above: Order Comment: 1 Y Result Comment: Fast ing Glucose result greater than or equal to 126 mg/dL suggests DIABETES MELLITUS per A.D.A. criteria. Performed By: #### L 100.0100, L501.5200, L501.5425, L501.9520, L300.8000, L500.2500, L503.6620 #### [facility] [address] [place], [address] Potassium [Moles/Vol] 4.2 mmol/L Normal 3.5-5.1 [facility] Comment on above: Order Comment: 1 Y Performed By: #### L 100.0100, L501.5200, L501.5425, L501.9520, L300.8000, L500.2500, L503.6620 #### [facility] [address] [place], [address] Sodium [Moles/Vol] 130 mmol/L Low 136-145 [facility] Comment on above: Order Comment: 1 Y Performed By: #### L 100.0100, L501.5200, L501.5425, L501.9520, L300.8000, L500.2500, L503.6620 #### [facility] [address] [place], [address] Urea nitrogen [Mass/Vol] 68 mg/dL High 7-18 [facility] Comment on above: Order Comment: 1 Y Performed By: #### L 100.0100, L501.5200, L501.5425, L501.9520, L300.8000, L500.2500, L503.6620 #### [facility] [address] [place], [address] Brain/Head without Contrasto n 03-03-2024 Brain/Head without Contrast [facility] Imaging Services [address] [place] [address] Brain/Head without Contrast MR#: [id number] Acct: [id number] Name: EREN MERCHANT Rep #: [id number] : 1960 F 63 From: Marlee Mckeon MD PCP: Dr. Priyanka Smith MD Status: PRE ER Study: Brain/Head without Contrast Date of Exam: 02/14 01/07 Exam# [id number] Ordering Dr: Jaguar Norwood DO [id number] INDICATION: Syncope EXAMINATION: CT BRAIN - CT Head or Brain W/O Contrast Injection TECHNIQUE: Multiple axial images were obtained of the head without intravenous contrast. The protocol utilizes one or more of the following dose reduction techniques: automated exposure control, adjustment of mA and/or kV according to patient size,and/or use of iterative reconstruction technique. IV Contrast dosage and agent: None. RADIATION DOSAGE (If Supplied By Facility): CTDIvol = ( 44.99 ) mGy, DLP = ( 779.24 ) mGycm COMPARISON: June 12, 2018 FINDINGS: BRAIN PARENCHYMA: No intra- or extra-axial hemorrhage. No evidence of acute infarct. No intracranial mass or mass effect. There is preservation of the diaz/white matter interface. Posterior fossa structures are unremarkable. CSF SPACES: Appropriate for age. No hydrocephalus. Basal cisterns are patent. CALVARIUM, SKULL BASE, PARANASAL SINUSES AND MASTOID AIR CELLS: Clear. No discrete lytic or blastic abnormalities. ORBITS: Both globes, extraocular muscles, optic nerves and retrobulbar fat appear unremarkable. ASPECTS Score for Acute Strokes: 10 CT/Brain/Head without Contrast IMPRESSION: No acute intracranial process. Electronically Signed: Marlee Mckeon MD at 15:00 EDT , CC: Dr. Jaguar Norwood DO; Dr. Priyanka Smith MD Upper Shaper: Signed Normal [facility] CNOVon 03-03-2024 CNOV Normal [facility] CTA Chest W/WO Contraston CTA Chest W/WO Contrast [facility] Imaging Services [address] [place], [place] [address] CTA Chest W/WO Contrast MR#: [id number] Acct: [id number] Name: EREN MERCHANT Rep #: [id number] : 1960 F 63 From: Marlee Mckeon MD PCP: Dr. Priyanka Smith MD Status: REG ER Study: CTA Chest W/WO Contrast Date of Exam: 03/03/24 Exam# [id number] Ordering Dr: Jaguar Norwood DO [id number] STUDY: CTA CHEST REASON FOR EXAM: Female, 63 years old. Elevated D-dimer, assess for a pulmonary embolus RADIATION DOSAGE (If Supplied By Facility): CTDIvol = ( 10.16 ) mGy, DLP = ( 439.92 ) mGycm TECHNIQUE: The examination was performed with the intravenous administration of IV 75mL [id number]-[id number]. Post-processing of the angiographic images was performed, with multiplanar reformation and 3D reconstruction. The protocol utilizes one or more of the following dose reduction techniques: automated exposure control, adjustment of mA and/or kV according to patient size,and/or use of iterative reconstruction technique. COMPARISON: June 08, 2018 FINDINGS: There is a stable low-attenuation nodule within the right lobe of the thyroid gland. Normal enhancement of the main pulmonary artery and right and left pulmonary arteries. Normal enhancement of the bilateral peripheral pulmonary arteries. There is no demonstrated pulmonary embolism. Normal thoracic aorta and visualized great vessels. There is no demonstrated aortic dissection. Normal heart and pericardium. There is circumferential wall thickening of the mid and distal esophagus. There is a small hiatal hernia. Normal hilar regions. There is mild bilateral bronchiectasis most pronounced within the lower lungs. There is bibasilar atelectasis and/or scarring Normal chest wall structures. There is a stable T11 superior endplate deformity. Normal visualized upper abdomen. CT/CTA Chest W/WO Contrast IMPRESSION: No demonstrated pulmonary embolism or arterial dissection. Circumferential wall thickening of the mid and distal esophagus concerning for esophagitis, cannot exclude a neoplastic process. Hiatal hernia. Bilateral bronchiectasis. Bibasilar atelectasis and/or scarring. Atherosclerosis. Electronically Signed: Marlee Mckeon MD at 16:01 EDT , CC: Dr. Jaguar Norwood DO; Dr. Priyanka Smith MD Upper Shaper: Signed Normal [facility] Chest 1 View (Portable)on Chest 1 View (Portable) [facility] Imaging Services [address] [place] [id number] Chest 1 View (Portable) MR#: [id number] Acct: [id number] Name: EREN MERCHANT Rep #: [id number] : 1960 F 63 From: Marlee Mckeon MD PCP: Dr. Priyanka Smith MD Status: PRE ER Study: Chest 1 View (Portable) Date of Exam: 03/03/24 Exam# [id number] Ordering Dr: Jaguar Norwood DO [id number] INDICATION: Syncope EXAMINATION/TECHNIQUE: X-RAY - XR Chest 1 View COMPARISON: June 01, 2018 FINDINGS: LINES/DEVICES: None. LUNGS: There are few left basilar curvilinear opacities. There are surgical sutures projecting over the right upper lung. No pneumothorax. MEDIASTINUM AND CARDIOVASCULAR STRUCTURES: Cardiac silhouette not enlarged. Central airways and mediastinal contour are unremarkable. BONES AND SOFT TISSUES: Unremarkable. RAD/Chest 1 View (Portable) IMPRESSION: Minimal left basilar atelectasis and/or scarring. Electronically Signed: Marlee Mckeon MD at 15:04 EDT , CC: Dr. Jaguar Norwood DO; Dr. Priyanka Smith MD Upper Shaper: Signed Normal [facility] D-Dimer Quantitative (DVT/PE )on 03-03-2024 D-DIMER QUANT 3.44 FEU/ug/m Invalid Interpretation Code 0.27-0.49 [facility] Comment on above: Order Comment: CRITI CHRISTINA VALUE CALLED TO GABI NEGRO 03/03/24 Amanda Guadarrama. RESULTS READ BACK BY SAME. Result Comment: D-Di she ELEVATED (>0.49): Additional studies and clinical assessments are indicated to conclude diagnosis of: Deep Vein Thrombosis (DVT) or Pulmonary Embolism (PE) Performed By: #### L 100.0100, L501.5200, L501.5425, L501.9520, L300.8000, L500.2500, L503.6620 #### [facility] Laboratory [address] [place], [address] Emergency Department Summary on 03-03-2024 Emergency Department Summary [facility] Medical Records Department [address] [place] [address] Emergency Department Summary 03/03/24 MR#: [id number] Acct: [id number] Name: EREN MERCHANT Rep #: [id number] : 1960 63 From: Jaguar Norwood DO PCP: Dr. Priyanka Smith MD Status:DEP ER Location: ED ADDENDUM by Dr. Jaguar [place] DO on 03/04/24 at 1551 Patient was still boarding in our emergency department when I started my shift this morning. She had just received Rocephin by Dr. Cruz. Will repeat patient's labs. CBC with a leukocytosis of 16.9. This is improved from 19.5. Creatinine is 2.60. This is improved from 3.10. We still have not received a bed placement or room number for the patient from [facility]. Patient is willing to transfer to another facility. I did speak to a physician from [facility]. They do not have any beds available. I was able to obtain bed placement from [facility] after discussed the patient with Dr. Contreras. Patient was transferred via EMS to [facility]. Patient was updated of this plan and confirmed understanding. 03/04/24 4731 Cosigner Signature (if applicable): cc: Dr. Priyanka Smith MD * Signed ADDENDUM by Dr. 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 She is accepted to the receiving facility in [place], but they do not have a bed. She is boarding in the emergency department under observation. Her resting tachycardia has improved, now 110. She has been ambulating to and from the bathroom multiple times overnight to urinate without any apparent difficulty or other systemic symptoms. She asked for some Tylenol which she was given. I am ordering I had a dose of Rocephin 24 hours after her initial dose to ensure that this does not get missed if she still remains here. 03/04/24 0654 Cosigner Signature (if applicable): cc: Dr. Priyanka Smith MD * Signed HPI History of Present Illness 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: Seizure Narrative Narrative: Chief complaint and HPI: Seizure-like activity. 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 Patient states she had 2 episodes of syncope on Wednesday. She states that she was talking on the phone and the next thing she remembers is lying down on the ground. She states this happened twice. She states she followed up with her PCP for this today in which she had reported seizure-like activity at the office. She states she had full body shaking without control of her body. She states her head hit the plexiglass. She states an employee came out and helped her sit down. She denies loss of consciousness during this episode. Did not bite her tongue. Did not urinate herself. Patient endorses decreased appetite for the past several days. Denies any fever, chills, lightheadedness, dizziness, chest pain, shortness of breath, abdominal pain, nausea, vomiting, dysuria, hematuria, diarrhea, constipation. Denies any weakness numbness or tingling. Review of systems: See HPI Medications: As listed on the chart Allergies: As listed on the chart PFSH: Per chart Vital signs: As listed on the chart. Reviewed. Physical exam: Gen: A O x3, NAD Head: Normocephalic, atraumatic Eyes: No sclera icterus, conjunctiva clear, PERRL, EOMI ENT: Moist mucous membranes Neck: Trachea midline, No JVD, full range of motion, nontender CV: Tachycardic, regular rhythm, no murmurs, no peripheral edema Resp: Lungs CTA BL, no w/r/c GI: Abd soft, non-distended, non-tender, no r/r/g Musc: Full ROM, no deformity, resting left upper extremity tremor-states this has been ongoing which is why she was placed on Skin: Warm, dry Neuro: Alert, oriented, grossly intact, sensation intact Psych: Cooperative, appropriate mood and affect [facility] Medical History (Updated 03/03/24 @ 15:20 by Ericka Abdi) Prediabetes Hypothyroid Home Medications ???Medication ???Instructions ???Recorded ???Last Taken ???Type aspirin 81 mg chewable tablet 81 mg PO DAILY@0800 06/28/18 Unknown History cholecalciferol (vitamin D3) 25 1,000 unit PO DAILY 06/28/18 Unknown History mcg (1,000 unit) tablet (Vitamin D3) fludrocortisone 0.1 mg tablet 0.1 mg PO BID 06/28/18 Unknown History geriatric horzhaol-slih-edux 1 ea PO DAILY 06/28/18 Unknown History (Complete Senior tablet) levothyroxine 75 mcg tablet 75 mcg PO DAILY 06/28/18 Unknown History potassium chloride 20 mEq 20 meq PO BID 06/28/18 Unknown History tablet,extended release(part/cryst) (Klor-Con M) sodium chloride 1 gram tablet 1 g PO TID 06/28/18 Unknown History Allergy/AdvReac Type Severity Reaction Status Date / Time cetirizine (From yrte) Allergy Unknown Ve (more content not included)... Normal [facility] L501.4020on 03-03-2024 TROPONIN-I HS 15 pg/mL Normal 3.0-54.0 [facility] Comment on above: Result Comment: Plea se Note: New Test Units and Gender Specific Reference Ranges. For more information see Policy Stat Procedure [place] High Sensitivity Troponin (TNIH) and attachments. Performed By: #### L 501.4020 #### [facility] Laboratory [address] [place], [address] L501.5425on 03-03-2024 TROPONIN-I HS 15 pg/mL Normal 3.0-54.0 [facility] Comment on above: Order Comment: 1Y Result Comment: Plea se Note: New Test Units and Gender Specific Reference Ranges. For more information see Policy Stat Procedure [place] High Sensitivity Troponin (TNIH) and attachments. Performed By: #### L 100.0100, L501.5200, L501.5425, L501.9520, L300.8000, L500.2500, L503.6620 ####[facility] [address] [place], [address] Magnesiumon 03-03-2024 Magnesium [Mass/Vol] 2.4 mg/dL Normal 1.6-2.6 [facility] Comment on above: Order Comment: 1 Y Performed By: #### L 100.0100, L501.5200, L501.5425, L501.9520, L300.8000, L500.2500, L503.6620 #### [facility] [address] [place], [address] Spine Cervical without Contr ason 03-03-2024 Spine Cervical without Contras [facility] [address] [place] [address] Spine Cervical without Contras MR#: [id number] Acct: [id number] Name: EREN MERCHANT Rep #: [id number] : 1960 F 63 From: Marlee Mckeon MD PCP: Dr. Priyanka Smith MD Status: PRE ER Study: Spine Cervical without Contras Date of Exam: Exam# [id number] Ordering Dr: Jaguar [place] DO [id number] INDICATION: Trauma EXAMINATION: CT CERVICAL SPINE - CT Spine Cervical W/O Contrast Injection TECHNIQUE: Helically acquired images were obtained of the cervical spine. 2D reformatted images were reviewed. The protocol utilizes one or more of the following dose reduction techniques: automated exposure control, adjustment of mA and/or kV according to patient size,and/or use of iterative reconstruction technique. IV Contrast dosage and agent: None. RADIATION DOSAGE (If Supplied By Facility): CTDIvol = ( 22.30 ) mGy, DLP = ( 460.81 ) mGycm COMPARISON: Prior study dated: Thoracic spine dated October 13, 2008 FINDINGS: VERTEBRAE: No fracture or traumatic subluxation. There is an old T1 spinous process fracture. No discrete lytic or blastic abnormality. Normal alignment. Normal craniocervical junction and cervicothoracic junction. DISCS and SPINAL CANAL: There is multilevel degenerative disc disease. No critical stenosis. NECK SOFT TISSUES: No prevertebral soft tissue swelling. There is no cervical adenopathy. LUNG APICES: Clear. The there are low-attenuation nodules within the right lobe of the thyroid gland including partially calcified nodules. CT/Spine Cervical without Contras IMPRESSION: Multilevel degenerative changes. Nodules within the right lobe of the thyroid gland, recommend nonemergent thyroid ultrasound for further characterization. Electronically Signed: Marlee Mckeon MD at 15:11 EDT , CC: Dr. Jaguar [place] DO; Dr. Priyanka Smith MD Upper Shaper: Signed Normal [facility] Thyroid Stim Hormone (TSH)on 03-03-2024 TSH 2.500 uIU/mL Normal 0.358-3.74 0 [facility] Comment on above: Order Comment: 1Y Performed By: #### L 100.0100, L501.5200, L501.5425, L501.9520, L300.8000, L500.2500, L503.6620 ####[facility] [address] [place], [address] Urinalysis, Completeon 03-03 WBC >100 SEEN Normal 0-5 [facility] Comment on above: Order Comment: CLEAN CATCH Performed By: #### L 400.0001 ####[facility] [address] [place], [address] BACTERIA 0 SEEN Normal None Seen [facility] Comment on above: Order Comment: CLEAN CATCH Performed By: #### L 400.0001 ####[facility] [address] [place], [address] EPI,SQUAMOUS 0 SEEN Normal 5-10 [facility] Comment on above: Order Comment: CLEAN CATCH Performed By: #### L 400.0001 ####[facility] [address] [place], [address] Mucus Ql (Urine sed) 0 SEEN Normal [facility] Comment on above: Order Comment: CLEAN CATCH Performed By: #### L 400.0001 ####[facility] [address] [place], [address] RBC 0 SEEN Normal 0-5 [facility] Comment on above: Order Comment: CLEAN CATCH Performed By: #### L 400.0001 ####[facility] [address] [place], [address] XR CHEST 2V FRONTAL/LATon XR CHEST 2V FRONTAL/LAT Normal [facility] XR Chest PA and Lateralon IMPRESSION: Linear atelectatic changes at the left lung base. Upper Shaper: JUAN Transcribe Date/Time: Mar 03 2024 12:46P Dictated by : JIMENA CHI MD This examination was interpreted and the report reviewed and electronically signed by: JIMENA CHI MD on Mar 03 2024 12:47PM [facility] DIVISION OF RADIOLOGY * * *Final Report* * * DATE OF EXAM: Mar 03 2024 12:46PM WOX 5291 - XR CHEST 2V FRONTAL/LAT / PROCEDURE REASON: Rib pain * * * * Physician Interpretation * * * * EXAMINATION: CHEST RADIOGRAPH (2 VIEW FRONTAL & LATERAL) CLINICAL HISTORY: Rib pain MQ: XC2_6 EXAM DATE/TIME: 03/03/2024 12:46 PM COMPARISON: No relevant prior studies available. RESULT: Lines, tubes, and devices: None. Lungs and pleura: Linear atelectatic changes at the left lung base. No consolidation. No lung mass. No pleural effusion. No pneumothorax. Cardiomediastinal silhouette: Normal cardiomediastinal silhouette. Bones and soft tissues: Degenerative changes are present within the thoracic spine. DIVISION OF RADIOLOGY Provider, [facility] - 03/03/2024 * * *Final Report* * * DATE OF EXAM: Mar 03 2024 12:46PM WOX 5291 - XR CHEST 2V FRONTAL/LAT / PROCEDURE REASON: Rib pain * * * * Physician Interpretation * * * * EXAMINATION: CHEST RADIOGRAPH (2 VIEW FRONTAL & LATERAL) CLINICAL HISTORY: Rib pain MQ: XC2_6 EXAM DATE/TIME: 03/03/2024 12:46 PM COMPARISON: No relevant prior studies available. RESULT: Lines, tubes, and devices: None. Lungs and pleura: Linear atelectatic changes at the left lung base. No consolidation. No lung mass. No pleural effusion. No pneumothorax. Cardiomediastinal silhouette: Normal cardiomediastinal silhouette. Bones and soft tissues: Degenerative changes are present within the thoracic spine. IMPRESSION IMPRESSION: Linear atelectatic changes at the left lung base. Upper Shaper: JUAN Transcribe Date/Time: Mar 03 2024 12:46P Dictated by : JIMENA CHI MD This examination was interpreted and the report reviewed and electronically signed by: JIMENA CHI MD on Mar 03 2024 12:47PM EST [facility] Radiology Study observation (narrative) [facility] XR Chest PA and LateralOrder ed By: Ccf Provider on 03-03-2024 [facility] CNOVon 03-01-2024 CNOV Normal [facility] CNPNon 02-02-2024 CNPN Normal [facility] Comprehensive metabolic 2000 panelon 01-31-2024 Albumin [Mass/Vol] 4.1 g/dL Normal 3.9-4.9 [facility] Comment on above: Order Comment: Speci men Type: BLOOD SPECIMENOrdering Facility: [facility] Address: [address] [place] [address] Performed By: #### 2 4323-8 ####[facility] LABCLIA [id number] [place] [address] [place] ALP [Catalytic activity/Vol] 100 U/L Normal 34-123 [facility] Comment on above: Order Comment: Speci men Type: BLOOD SPECIMENOrdering Facility: [facility] Address: [address] [place] [address] Performed By: #### 2 4323-8 ####[facility] LABCLIA [id number] [place] [address] [place] ALT [Catalytic activity/Vol] 17 U/L Normal 7-38 [facility] Comment on above: Order Comment: Speci men Type: BLOOD SPECIMENOrdering Facility: [facility] Address: [address] [place] [address] Performed By: #### 2 4323-8 ####[facility] LABCLIA [id number] [place] [address] [place] Anion gap [Moles/Vol] 10 mmol/L Normal 8-15 [facility] Comment on above: Order Comment: Speci men Type: BLOOD SPECIMENOrdering Facility: [facility] Address: [address] [place] [address] Performed By: #### 2 4323-8 ####[facility] LABCLIA [id number] [place] [address] [place] AST [Catalytic activity/Vol] 22 U/L Normal 13-35 [facility] Comment on above: Order Comment: Speci men Type: BLOOD SPECIMENOrdering Facility: [facility] Address: [address] [place] [address] Performed By: #### 2 4323-8 ####[facility] LABCLIA [id number] [place] [address] [place] Bilirubin [Mass/Vol] 0.3 mg/dL Normal 0.2-1.3 [facility] Comment on above: Order Comment: Speci men Type: BLOOD SPECIMENOrdering Facility: [facility] Address: [address] [place] [address] Performed By: #### 2 4323-8 ####[facility] LABCLIA [id number] [place] [address] [place] Calcium [Mass/Vol] 10.0 mg/dL Normal 8.5-10.2 [facility] Comment on above: Order Comment: Speci men Type: BLOOD SPECIMENOrdering Facility: [facility] Address: [address] [place] [address] Performed By: #### 2 4323-8 ####[facility] LABCLIA [id number] [place] [address] [place] Chloride [Moles/Vol] 106 mmol/L Normal 98-107 [facility] Comment on above: Order Comment: Speci men Type: BLOOD SPECIMENOrdering Facility: [facility] Address: [address] [place], [place] [address] Performed By: #### 2 4323-8 ####[facility] LABCLIA [id number] [place] [address] [place] CO2 [Moles/Vol] 24 mmol/L Normal 22-30 [facility] Comment on above: Order Comment: Speci men Type: BLOOD SPECIMENOrdering Facility: [facility] Address: [address] [place] [address] Performed By: #### 2 4323-8 ####[facility] LABIA [id number] [place] [address] [place] Creatinine [Mass/Vol] 1.75 mg/dL High 0.58-0.96 [facility] Comment on above: Order Comment: Speci men Type: BLOOD SPECIMENOrdering Facility: [facility] Address: [address] [place] [address] Performed By: #### 2 4323-8 ####[facility] LABIA [id number] [place] [address] [place] Creatinine and Glomerular filtration rate.predicted panel (S/P/Bld) 32 mL/min/1.73m??? Low >=60 [facility] Comment on above: Order Comment: Zeni men Type: BLOOD SPECIMENOrdering Facility: [facility] Address: [address] [place] [address] Result Comment: Hyun mated Glomerular Filtration Rate [...] actual GFR. Performed By: #### 2 4323-8 ####[facility] LABIA [id number] [place] [address] [place] Glucose [Mass/Vol] 97 mg/dL Normal 74-99 [facility] Comment on above: Order Comment: Zeni men Type: BLOOD SPECIMENOrdering Facility: [facility] Address: [address] [place] [address] Result Comment: The [place] Diabetes Association (ADA) provides guidance for cutoff values for fasting glucose and random glucose. The ADA defines fasting as no caloric intake for at least 8 hours. Fasting plasma glucose results between 100 to 125 mg/dL indicate increased risk for diabetes (prediabetes).Fasting plasma glucose results greater than or equal to 126 mg/dL meet the criteria for diagnosis of diabetes. In the absence of unequivocal hyperglycemia, results should be confirmed by repeat testing. In a patient with classic symptoms of hyperglycemia or hyperglycemic crisis, random plasma glucose results greater than or equal to 200 mg/dL meet the criteria for diagnosis of diabetes.Reference: Standards of Medical Care in Diabetes 2016, [place] Diabetes Association. Diabetes Care. 2016.39(Suppl 1). Performed By: #### 2 4323-8 ####[facility] LABCLIA [id number] [place] [address] [place] Potassium [Moles/Vol] 4.2 mmol/L Normal 3.7-5.1 [facility] Comment on above: Order Comment: Speci men Type: BLOOD SPECIMENOrdering Facility: [facility] Address: [address] [place] [address] Performed By: #### 2 4323-8 ####[facility] LABIA [id number] [place] [address] [place] Protein [Mass/Vol] 7.4 g/dL Normal 6.3-8.0 [facility] Comment on above: Order Comment: Speci men Type: BLOOD SPECIMENOrdering Facility: [facility] Address: [address] [place] [address] Performed By: #### 2 4323-8 ####[facility] LABCLIA [id number] [place] [address] [place] Sodium [Moles/Vol] 140 mmol/L Normal 136-144 [facility] Comment on above: Order Comment: Speci men Type: BLOOD SPECIMENOrdering Facility: [facility] Address: [address] [place] [address] Performed By: #### 2 4323-8 ####[facility] LABCLIA [id number] [place] [address] [place] Urea nitrogen [Mass/Vol] 27 mg/dL High 7-21 [facility] Comment on above: Order Comment: Melinda diamond Type: BLOOD SPECIMENOrdering Facility: [facility] Address: [address] [place] [address] Performed By: #### 2 4323-8 ####[facility] LABCLIA [id number] [address] [place] HbA1c (Bld)on 01-31-2024 Average glucose Estimated from glycated hemoglobin (Bld) [Mass/Vol] 123 mg/dL Normal [facility] Comment on above: Order Comment: Melinda diamond Type: BLOOD SPECIMENOrdering Facility: [facility] Address: [address] [place] [address] Result Comment: eAG: (Estimated average glucose) is a calculated value from HgbA1c and is parts representative of the average blood glucose level in the last 2-3 month period. Performed By: #### 5 5454-3 ####[facility] LABCLIA [id number] [address] [place] HbA1c (Bld) [Mass fraction] 5.9 % High 4.3-5.6 [facility] Comment on above: Order Comment: Melinda diamond Type: BLOOD SPECIMENOrdering Facility: [facility] Address: [address] [place] [address] Result Comment: [place] Diabetes Association guidelines indicate that patients with HgbA1c in the range 5.7-6.4% are at increased risk for development of diabetes, and intervention by lifestyle modification may be beneficial. HgbA1c greater or equal to 6.5% is considered diagnostic of diabetes. Performed By: #### 5 5454-3 ####[facility] LABIA [id number] [place] [address] [place] Lipid 1996 panelon 4 Cholesterol [Mass/Vol] 181 mg/dL Normal <200 Cl [facility] Comment on above: Order Comment: Melinda diamond Type: BLOOD SPECIMENOrdering Facility: [facility] Address: [address], [place] [address] Result Comment: <200 mg/dL, Desirable 200-239 mg/dL, Borderline high>239 mg/dL, High Performed By: #### 2 4331-1 ####[facility] LABCLIA [id number] [address] [place] [address] [id number] [place] [address] [place] Cholesterol in HDL [Mass/Vol] 49 mg/dL Normal >39 [facility] Comment on above: Order Comment: Speci men Type: BLOOD SPECIMENOrdering Facility: [facility] Address: [address] [place] [address] Result Comment: 40-5 9 mg/dL, Acceptable>59 mg/dL, High: Negative risk factor for coronary heart disease<40 mg/dL, Low: Positive risk factor for coronary heart disease Performed By: #### 2 4331-1 ####[facility] LABCLIA [id number] [address] [id number] [place] [address] [place] Cholesterol in LDL [Mass/Vol] 96 mg/dL Normal <100 [facility] Comment on above: Order Comment: Speci men Type: BLOOD SPECIMENOrdering Facility: [facility] Address: [address] [place] [address] Result Comment: <100 mg/dL, Optimal 100-129 mg/dL, Near optimal/above optimal 130-159 mg/dL, Borderline high 160-189 mg/dL, High>189 mg/dL, Very highSecondary prevention optimal LDL Cholesterol levels are recommended to be < 70 mg/dL Performed By: #### 2 4331-1 ####[facility] LABCLIA [id number] [place] [id number] [facility] [id number] [place] [address] [place] Cholesterol in LDL/Cholesterol in HDL [Mass ratio] 1.96 {ratio} Normal <2.54 [facility] Comment on above: Order Comment: Zeni men Type: BLOOD SPECIMENOrdering Facility: [facility] Address: [address] [place] [address] Result Comment: Rosalie darling:1. National Cholesterol Education Program ATP III Guideline At-A-Glance Quick Desk Reference: National Heart, Lung, and Blood [place]. National Institutes of Health. 2001: NIH Publication No. 01-3305.2. An International Atherosclerosis Society position paper: global recommendations for the management of dyslipidemia: executive summary, Atherosclerosis. 2014: 232(2):410-413. Performed By: #### 2 4331-1 ####[facility] LABCLIA [id number] [address] [id number] [address] Cholesterol in VLDL [Mass/Vol] 36 mg/dL High <30 [facility] Comment on above: Order Comment: Melinda diamond Type: BLOOD SPECIMENOrdering Facility: [facility] Address: [address] [place] [address] Performed By: #### 2 4331-1 ####[facility] LABCLIA [id number] [address] [id number] [place] [address] [place] [facility] Cholesterol non HDL [Mass/Vol] 132 mg/dL High <130 [facility] Comment on above: Order Comment: Melinda lobo Type: BLOOD SPECIMENOrdering Facility: [facility] Address: [address] [place] [address] Result Comment: <130 mg/dL, Optimal 130-159 mg/dL, Near optimal/above optimal 160-189 mg/dL, Borderline high 190-219 mg/dL, High>219 mg/dL, Very highSecondary prevention optimal non HDL Cholesterol levels are recommended to be <100 mg/dL Performed By: #### 2 4331-1 ####[facility] LABCLIA [id number] [address] [id number] [address] Cholesterol.total/Chol esterol in HDL [Mass ratio] 3.69 {ratio} Normal <5.10 [facility] Comment on above: Order Comment: Speci men Type: BLOOD SPECIMENOrdering Facility: [facility] Address: [address] [place] [address] Performed By: #### 2 4331-1 ####[facility] LABCLIA [id number] [address] [id number] [place] [address] FASTING TIME 13 hrs Normal [facility] Comment on above: Order Comment: Speci men Type: BLOOD SPECIMENOrdering Facility: [facility] Address: [address] [place] [address] Performed By: #### 2 4331-1 ####[facility] LABCLIA [id number] [id number] [place] [address] STATES [facility] Triglyceride [Mass/Vol] 181 mg/dL High <150 [facility] Comment on above: Order Comment: Speci men Type: BLOOD SPECIMENOrdering Facility: [facility] Address: [address] [place], [place] [id number] Result Comment: <150 mg/dL, Normal 150-199 mg/dL, Borderline high 200-499 mg/dL, High>499 mg/dL, Very high Performed By: #### 2 4331-1 ####[facility] LABCLIA [id number] [address] [id number] [address] [place] STATES [facility] [id number] [place], [place] [id number] [place] [address] STATES OF MAXIMILIANO CNOVon 01-13-2024 CNOV Normal [facility] UA DIP, URINE (POC)on 2023 BILIRUBIN UA (POCT) Negative Negative [facility] CLARITY UA (POCT) Clear [facility] COLOR UA (POCT) Yellow [facility] GLUCOSE UA (POCT) 100 mg/dL Abnormal Negative [facility] Hemoglobin Ql (U) Large Abnormal Negative [facility] Interpretation and review of laboratory results Abnormal [facility] KETONE UA (POCT) Negative Negative mg/dL [facility] LEUKOCYTES UA (POCT) Small Abnormal Negative [facility] NITRITE UA (POCT) Negative Negative [facility] PH UA (POCT) 6.0 4.5 - 8.0 [facility] Protein Ql (U) 100 mg/dL Abnormal Negative [facility] SPECIFIC GRAVITY UA (POCT) 1.020 1.005 - 1.030 [facility] UROBILINOGEN UA (POCT) 0.2 Sallie l E.U./dL [facility] Location:[address], [id number] [place] [address] POINT OF CARE [facility] ANES POSTPROC EVALon 024 ANES POSTPROC EVAL HNO ID: [id number] Author: JAYRO DAVILA MD Service: Anesthesiology Author Type: Physician Type: Anesthesia Postprocedure Evaluation Filed: 11/22/2023 10:06 Note Text: POST ANESTHESIA EVALUATION NOTE : 1960 Procedure Summary Date: 11/22/23 Room / Location: [place] OR / [place] OR Anesthesia Start: 801 Anesthesia Stop: Procedure: EXTRACORPOREAL SHOCKWAVE LITHOTRIPSY UNILATERAL (Right: Renal) Diagnosis: Renal calculus, right (Renal calculus, right [N20.0]) Surgeons: Mathew Yang Jr., MD Responsible Provider: Jayro Davila MD Anesthesia Type: general ASA Status: 3 Anesthesia Type: No value filed. Last Vitals Vitals Value Taken Time BP 112/68 11/22/23929 Temp 36.2 ?C (97.2 ?F) 11/22/23927 HR SpO2 64 11/22/2330 Resp 16 11/22/23929 SpO2 97 % 11/22/23929 [...] Documentation SIGNATURE: Jayro Davila MD PATIENT NAME: Eren Merchant DATE: November 22, 2023 TIME: 10:05 AM CSN: [id number] Normal [facility] ANES PRE-OPon 11-22-2023 ANES PRE-OP HNO ID: [id number] Author: JAYRO DAVILA MD Service: Anesthesiology Author Type: Physician Type: Anesthesia Preprocedure Evaluation Filed: 11/22/2023 09:14 Note Text: ANESTHESIOLOGY DAY OF SURGERY NOTE : 1960 Procedure Information Date/Time: 11/22/23 08 Procedure: EXTRACORPOREAL SHOCKWAVE LITHOTRIPSY UNILATERAL (Right: Renal) Location: [place] OR 20 / [place] OR Surgeons: Mathew Yang Jr., MD Estimated body mass index is 32.28 kg/m? as calculated from the following: Height as of 06/22/23: 165.1 cm (5' 5). Weight as of 11/09/23: 88 kg (194 lb). Most recent hematocrit and potassium results: Hematocrit 44.8 05/08/2023 Potassium 5.1 06/11/2023 Relevant Problems ENDO (+) Acquired hypothyroidism -RENAL (+) Stage 3a chronic kidney disease (HCC) PULMONARY (+) NSIP (nonspecific interstitial pneumonitis) ([facility]) I - PHYSICAL EVALUATION AIRWAY Patient intubated: [...] Airway type: LMA NPO Status: adequate Beta Eladio Monitoring Plan Monitoring plan: standard ASA. Post Procedure Analgesic Plan Postoperative analgesic plan: parenteral or oral opioids and multimodal analgesia. Informed Consent Anesthetic risks, benefits, alternatives, personnel and consent discussed: yes. Patient / Responsible Republican agrees to proceed: yes Patient / Surrogate [...] Surgery/Procedure. SIGNATURE: Jayro Davila MD PATIENT NAME: Eren Herbertiver DATE: November 22, 2023 TIME: 7:46 AM CSN: [id number] [facility] 11-22-2023 [facility] Telephone (AKPRAD) SHONDAEREN ([id number]) 1960 F Date Time Provider Department 11/22/23 MATHEW YANG JR During your visit today, we recorded the following information about you: Mathew Yang Jr., MD 11/22/2023 8:45 AM Signed [facility] or 11/22/23 Fu with al 4 weeks Kub prior ordered Dee Long 11/22/2023 10:29 AM Signed Called and left vox Patient is scheduled December 21, 2023 at 2pm, idalia jones Thank you Abdulkadir Elder MA 11/25/2023 9:27 AM Signed Addended by: ABDULKADIR PRADO on: 11/25/2023 09:27 AM Modules accepted: Orders Allergies As of Date: 11/22/2023 Noted Allergy Reaction ERYTHROMYCIN 09/14/2022 6 - Diarrhea HAY FEVER (SEASONAL ALLERGIES) 08/13/2009 ZYRTEC (CETIRIZINE HCL) 08/06/2014 9 - Itching Date Reviewed: 11/22/2023 Reviewed by: Luz Kohli RN - Fully Assessed Reason for Visit: Appointment [186] Primary Visit Diagnosis:Kidney stone [N20.0] Order(s):XR ABDOMEN 1V SUPINE [[id number]] Order #: [id number] FUTURE XR ABDOMEN 1V SUPINE [[id number]] Order #: [id number] FUTURE Prescriptions as of 11/25/2023 - nitrofurantoin [...] 81 mg by mouth once daily. - multivit-min/iron/folic acid/K (MULTI-DAY PLUS MINERALS ORAL) Take 1 capsule by mouth once daily. - L.acidophilus-L.rhamnosus (PROBIOTIC) 15 billion cell capsule Take 1 capsule by mouth once daily. Facility-Administered Medications as of 11/25/2023 - onabotulinum toxin type A 200 Units injection (BOTOX) Meds Comments as of 06/22/2023: OTC Prevagen. Problem List As Of Date 11/22/2023 Noted Resolved Acquired hypothyroidism [E03.9] Abnormal Papanicolaou Smear of Vagina and Vagin* 02/06/2010 Dyspareunia [ULO7825] 05/03/2006 02/06/2010 Fx Sacrum/Coccyx-Closed [S32.10XA, S32.2XXA] 05/31/2007 02/06/2010 Fx Dorsal Vertebra-Closed [S22.009A] 11/19/2008 02/06/2010 Diverticulosis [K57.90] 02/06/2010 07/08/2018 Calcaneal spur [M77.30] 06/03/2010 10/01/2017 Hives [L50.9] 10/01/2017 Chronic urticaria [L50.8] 03/03/2012 10/01/2017 Open wound(s) (multiple) of unspecified site(s)*06/02/2012 10/01/2017 Primary osteoarthritis of first carpometacarpal*08/05/2017 07/08/2018 Obesity, Class I, BMI 30-34.9 E66.9 [E66.9] [...] Encounter Status:Closed by MATHEW YANG on 11/22/23 [facility] HISTORY PHYSICALon HISTORY PHYSICAL HNO ID: [id number] Author: MATHEW YANG JR, MD Service: Urology [...] SIGNATURE: Mathew Yang Jr, MD PATIENT NAME: Eren Merchant DATE: November 22, 2023 TIME: 7:53 AM PAGER: [phone] Normal [facility] OPERATIVE NOon 11-22-2023 OPERATIVE NO HNO ID: [id number] Author: MATHEW YANG JR, MD Service: Urology [...] Yang Jr, MD OPERATIVE/PROCEDURE REPORT LOG ID: [id number] SURGERY/PROCEDURE DATE: 11/22/2023 INCISION/PROCEDURE START TIME: 8:13 AM INCISION CLOSE/PROCEDURE END TIME: 8:49 AM SURGEON(S)/PROCEDURALIST(S) AND AIR TUCKER(S): Surgeon(s) and Role: * Mathew Yang Jr., MD - Primary * Denver Callaway MD - Resident - Assisting No Additional Staff ANESTHESIA: General Procedures Right ESWL OPERATIVE/PROCEDURE REPORT LOG ID: [id number] SURGERY/PROCEDURE DATE: 11/22/2023 INCISION/PROCEDURE START TIME: 8:13 AM INCISION CLOSE/PROCEDURE END TIME: 8:49 AM SURGEON(S)/PROCEDURALIST(S) AND AIR TUCKER(S): Surgeon(s) and Role: * Mathew Yang Jr., MD - Primary * Denver Callaway MD - Resident - Assisting No Additional Staff SURGERY/PROCEDURE(S): Right extracorporeal shock wave lithotripsy ANESTHESIA: General SURGERY/PROCEDURE DETAILS: Eren Merchant is a 63 year old patient who [...] assistance. SIGNATURE: Denver Callaway MD PATIENT NAME: Eren Merchant DATE: November 22, 2023 TIME: 9:00 AM PAGER/CONTACT #: [phone] SPECIMENS: COMPLETED BY: Denver Callaway MD PATIENT NAME: Eren Merchant DATE: November 22, 2023 TIME: 8:59 AM AGE: [age] year old Normal [facility] XR ABDOMEN 1V SUPINEon 11-21 XR ABDOMEN [...] spine, concerning for left-sided distal ureter calculus. [facility] Transcribe Date/Time: Nov 22 2023 8:25A Dictated by : GUILLERMO DEE MD This examination was interpreted and the report reviewed and electronically signed by: GUILLERMO DEE MD on Nov 22 2023 8:35AM EST [id number] Normal [facility] UA DIP, URINE (POC)on 2023 BILIRUBIN UA (POCT) Negative Negative [facility] CLARITY UA (POCT) Slightly Cloudy Cl [facility] COLOR UA (POCT) Dark yellow [facility] GLUCOSE UA (POCT) Negative Negative mg/dL [facility] Hemoglobin Ql (U) Large Abnormal Negative [facility] Interpretation and review of laboratory results Abnormal [facility] KETONE UA (POCT) Negative Negative mg/dL [facility] LEUKOCYTES UA (POCT) Moderate Abnormal Negative [facility] NITRITE UA (POCT) Negative Negative [facility] PH UA (POCT) 5.5 4.5 - 8.0 [facility] Protein Ql (U) >=300 Abnormal Negative mg/dL [facility] SPECIFIC GRAVITY UA (POCT) 1.020 1.005 - 1.030 [facility] UROBILINOGEN UA (POCT) 0.2 Sallie l E.U./dL [facility] Location:[facility], [address] [place], [address] [facility] POINT OF CARE [facility] UA DIP, URINE (POC)on 2023 BILIRUBIN UA (POCT) Negative Negative [facility] CLARITY UA (POCT) Clear [facility] COLOR UA (POCT) Yellow [facility] GLUCOSE UA (POCT) Negative Negative mg/dL [facility] Hemoglobin Ql (U) Moderate Abnormal Negative [facility] KETONE UA (POCT) Negative Negative mg/dL [facility] LEUKOCYTES UA (POCT) Large Abnormal Negative [facility] NITRITE UA (POCT) Negative Negative [facility] PH UA (POCT) 6.0 4.5 - 8.0 [facility] Protein Ql (U) 100 mg/dL Abnormal Negative mg/dL [facility] SPECIFIC GRAVITY UA (POCT) 1.020 1.005 - 1.030 [facility] UROBILINOGEN UA (POCT) 0.2 E.U./dL Sallie l E.U./dL [facility] DBT Breast - bilateral scree ningon 08-18-2023 [facility] UA DIP, URINE (POC)on 2022 BILIRUBIN UA (POCT) Negative Negative [facility] CLARITY UA (POCT) Clear [facility] COLOR UA (POCT) Yellow [facility] GLUCOSE UA (POCT) Negative Negative mg/dL [facility] Hemoglobin Ql (U) Small Abnormal Negative [facility] KETONE UA (POCT) Negative Negative mg/dL [facility] LEUKOCYTES UA (POCT) Small Abnormal Negative [facility] NITRITE UA (POCT) Negative Negative [facility] PH UA (POCT) 7.0 4.5 - 8.0 [facility] Protein Ql (U) 100 mg/dL Abnormal Negative mg/dL [facility] SPECIFIC GRAVITY UA (POCT) 1.025 1.005 - 1.030 [facility] UROBILINOGEN UA (POCT) 1.0 E.U./dL S[place]ie l E.U./dL [facility] ANES POSTPROC EVALon 023 ANES POSTPROC EVAL HNO ID: [id number] Author: Jemal Meza MD Service: Anesthesiology Author Type: Anesthesiologist Type: Anesthesia Postprocedure Evaluation Filed: 01/28/2023 9:59 AM Note Text: POST ANESTHESIA EVALUATION NOTE : 1960 Procedure Summary Date: 01/28/23 Room / Location: [place] OR / [place] OR Anesthesia Start: 736 Anesthesia Stop: 909 Procedures: INSERTION STIMULATOR GENERATOR [...] 0930 Temp 37.3 ?C (99.1 ?F) 01/28/23 09 HR SpO2 79 01/28/23 0908 Resp 12 01/28/23937 SpO2 97 % 01/28/23937 Vitals shown include unvalidated device data. Post [...] Documentation SIGNATURE: Jemal Meza MD PATIENT NAME: Eren Merchant DATE: January 28, 2023 TIME: 9:59 AM CSN: [id number] [facility] ANES PRE-OPon 01-28-2023 ANES PRE-OP HNO ID: [id number] Author: Jemal Meza MD Service: Anesthesiology Author Type: Anesthesiologist Type: Anesthesia Preprocedure Evaluation Filed: 01/28/2023 7:05 AM Note Text: ANESTHESIOLOGY DAY OF SURGERY NOTE : 1960 Procedure Information Date/Time: 01/28/23729 Procedures: INSERTION STIMULATOR GENERATOR BLADDER (Bilateral: Back) IMPLANT STIMULATOR LEAD(S) BLADDER INCISIONAL APPROACH (Bilateral: Back) FLUOROSCOPIC GUIDANCE/LOCALIZATION OF NEEDLE/CATHETER TIP FOR DIAG OR THERAPUETIC SPINE/PARASPINOUS INJECTION PROCEDURES (Bilateral: Back) Location: [place] OR / [place] OR Surgeons: John Mg MD Estimated body mass index is 34.87 kg/m? as calculated from the following: Height as of 01/12/23: 161.3 cm (5' 3.5). Weight as of 01/12/23: 90.7 kg (200 [...] a current smoker. NPO Status: adequate Beta Eladio Monitoring Plan Monitoring plan: standard ASA. Post Procedure Analgesic Plan Postoperative analgesic plan: parenteral or oral opioids and multimodal analgesia. Informed Consent Anesthetic risks, benefits, alternatives, personnel and consent discussed: yes. Patient / Responsible Republican agrees to proceed: yes Patient / Surrogate [...] yes Vitals Value Taken Time BP 123/66 01/28/23 0626 Pulse Resp 16 01/28/23625 Temp 36.6 ?C (97.9 ?F) 01/28/23 06 SpO2 97 % 01/28/23625 Facility-Administered Medications as [...] Surgery/Procedure. SIGNATURE: Jemal Meza MD PATIENT NAME: Eren Merchant DATE: January 28, 2023 TIME: 7:05 AM CSN: [id number] [facility] OPERATIVE NOon 01-28-2023 OPERATIVE NO HNO ID: [id number] Author: John Mg MD Service: Urogynecology Author Type: Physician Type: Operative Report Filed: 01/30/2023 4:29 PM Note Text: OPERATIVE/PROCEDURE REPORT LOG ID: [id number] Surgery/Procedure Date: 01/28/2023 Incision/Procedure Start Time: 7:59 AM Incision Close/Procedure End Time: 9:00 AM Surgeon(s)/Proceduralist(s) and Scientific Software Engineer(s): Surgeon(s) and Role: * John Mg MD - Primary * Darin Schulz MD - Resident - Assisting * Claudette Rojo MD - Fellow * Wiley Benitez MD Registered Nurse Gut Snatcher: Betty García RN Procedure(s): 1. InterStim Peripheral Nerve Stimulation Stage 1- Incision and implantation of tined quadripolar lead electrodes into left S3 Foramen (12474) 2. Fluoroscopic guidance for needle placement (32084) 3. Implantation of InterStim II neurogenerator, electrical [...] Implant Name Type Inv. Item Serial No. Service Control Operator Lot No. LRB No. Used Action LEAD INTRSTIM MRI 28CM - [id number] Lead LEAD INTRSTIM MRI 28CM [employer] [id number] N/A 1 Implanted INTERSTIM X RECHARGE FREE NEUROSTIMULATOR - [id number] Stimulator INTERSTIM X RECHARGE FREE NEUROSTIMULATOR [id number] [employer] Left 1 Implanted Pre-Op/Pre-Procedure Diagnosis: Overactive [...] 2. The pa (more content not included)... Normal [facility] XR FLUOROSCOPYon 01-28-2023 XR FLUOROSCOPY * * *Final Report* * * DATE OF EXAM: Jan 28 2023 9:17AM [facility]13 - XR FLUOROSCOPY / PROCEDURE REASON: [...] Please refer to the performing LIP's report. Upper Shaper: PSCB Transcribe Date/Time: Jan 28 2023 10:20A Dictated by : ALLYSON BUTLER MD This examination was interpreted and the report reviewed and electronically signed by: ALLYSON BUTLER MD on Jan 28 2023 10:21AM EST [id number] [facility] HISTORY PHYSICALon HISTORY PHYSICAL HNO ID: [id number] Author: Abdulkadir Amaya PA-C Service: ? Author Type: Physician Scientific Software Engineer Type: HANDP Filed: 01/12/2023 11:08 AM Note Text: HISTORY AND PHYSICAL EXAMINATION SERVICE DATE: 01/12/2023 SERVICE TIME: 10:38 AM PRIMARY CARE PHYSICIAN: Priyanka Smith MD REASON FOR VISIT: Eren Merchant is a 62 year old female who [...] Status Overdue - COVID-19 VACCINE (5 - Inna risk series) Overdue since 05/01/2022 03/06/2022 Imm Admin: COVID-19 vaccine, age 12+ yr, bivalent (PFIZER-BIONTECH) 12/22/2021 Imm Admin: COVID-19 original vaccine, age 12+ yr, monovalent (PFIZER-BIONTECH - TALBOT TOP) 04/07/2021 Imm Admin: COVID-19 original vaccine, age 12+ yr, monovalent (PFIZER-BIONTECH - PURPLE TOP) Only the first 3 history entries have been loaded, but more history exists. CHIEF COMPLAINT: urinary frequency HPI: Eren Merchant is a 62 year old female presenting for pre-anesthesia consultation with her . Pt has history of OAB and urinary frequency since 2019. She has tried and failed tx with multiple medications. Denies dysuria or gross hematuria currently. Above procedure recommended to manage symptoms. Procedure scheduled on 01/28/2023 at [place]. REVIEW OF SYSTEMS: General: No weight loss, malaise or fevers. Neurological: No history of TIA's, stroke, PHYSICIAN OFFICE NURSE tumor, impaired sensorium, hemiplegia, paraplegia or quadraplegia. No neurological symptoms or problems. Respiratory: +ILD/NSIP - s/p R VATS biopsy of upper, middle and lower lung for pulmonary infiltrates 03/2020, on Cellcept and prednisone 5 mg, follows with Dr. Alcantara, AMAN 10/30/22, normal PFT 11/2022 Negative for: current cough, tobacco use, URI < 2 weeks and obstructive sleep apnea. Cardiovascular: Positive for: DVT/PE (remote h/o RLE DVT - post-op after back surgery 2008) Negative for: arrhythmia, atrial fibrillation, CHF, hyperlipidemia, hypertension, recent TN and murmur/valvular heart disease. 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 Normal [facility] LUNG VOLUMESon 11-16-2022 [facility] SPIROMETRY BASELINE ONLYon 0 11-16-2022 DLCO (ml/min/mmHg) 17.31 ml/min/mmHg [facility] DLCO/VA (ml/min/mmHg/L) 3.99 ml/min/mmHg/L [facility] ERV BOX (L) 0.42 L [facility] CXF64-20% PRE (L/S) 3.85 L/S [facility] FEV1 PRE (L) 2.67 L [facility] FEV1/FVC PRE (%) 86 % [facility] FRC Box (L) 2.34 L [facility] FVC PRE (L) 3.10 L [facility] IC BOX (L) 2.66 L [facility] PEF PRE (L/S) 6.31 L/S [facility] RV Box (L) 1.79 L [facility] RV/TLC Box (%) 37 % [facility] TLC Box (L) 4.87 L [facility] VA (L) 4.33 L [facility] VC (L) BOX 3.13 L [facility] CT CHEST WO IVCONon 10-28-19 [facility] NM RENAL FLOW/FXN W PHARMon 10-15-2022 NM [...] pelvis dilation. Split differential function, as described. Upper Shaper: JUAN Transcribe Date/Time: Oct 15 2022 11:17A Dictated by : JEMAL HANNA DO This examination was interpreted and the report reviewed and electronically signed by: JEMAL HANNA DO on Oct 15 2022 11:46AM EST [id number] Normal [facility] XR Abdomen Supine and Uprigh ton 08-13-2022 IMPRESSION: Findings as discussed under Results portion of report. Upper Shaper: JUAN Transcribe Date/Time: Aug 13 2022 11:10A Dictated by : KARLA BENAVIDEZ DO This examination was interpreted and the report reviewed and electronically signed by: KARLA BENAVIDEZ DO on Aug 13 2022 11:13AM EST [facility] * * *Final Report* * * DATE OF EXAM: Aug 11 2022 3:32PM MDO 5289 - XR ABDOMEN 1V SUPINE / PROCEDURE REASON: N20.0-Kidney stone * * * * Physician Interpretation * * * * Abdomen supine: HISTORY: Indication: Kidney stone TECHNIQUE: Views obtained: XR ABDOMEN 1V SUPINE Comparison: CT urogram 06/09/2022 RESULT: Findings: Large amount of fecal debris and bowel gas evaluation of the kidneys. No calcifications can be identified. No bony abnormalities are seen [facility] Provider, Steven Mancia - 08/13/2022 * * *Final Report* * * DATE OF EXAM: Aug 11 2022 3:32PM MDO 5289 - XR ABDOMEN 1V SUPINE / [...] as discussed under Results portion of report. Upper Shaper: JUAN Transcribe Date/Time: Aug 13 2022 11:10A Dictated by : KARLA BENAVIDEZ DO This examination was interpreted and the report reviewed and electronically signed by: KARLA BENAVIDEZ DO on Aug 13 2022 11:13AM EST [facility] XR Abdomen Supine and Uprigh tOrdered By: [facility] Provider on 08-13-2022 [facility] XR CHEST 2V FRONTAL/LATon [facility] XR Chest PA and Lateralon 03 -29-2023 IMPRESSION: 1. Chronic fibrotic and other densities in the mid to lower lung saavedra bilaterally.. 2. Postsurgical changes right lower lobe. 3. No acute changes. Upper Shaper: PSCB Transcribe Date/Time: Aug 12 2022 6:58P Dictated by : MAHENDRA CARRILLO MD This examination was interpreted and the report reviewed and electronically signed by: MAHENDRA CARRILLO MD on Aug 12 2022 7:04PM [facility] DIVISION OF RADIOLOGY * * *Final Report* [...] soft tissues: Unremarkable. DIVISION OF RADIOLOGY Provider, [facility] - 08/12/2022 * * *Final [...] right lower lobe. 3. No acute changes. Upper Shaper: JUAN Transcribe Date/Time: Aug 12 2022 6:58P Dictated by : MAHEDNRA CARRILLO MD This examination was interpreted and the report reviewed and electronically signed by: MAHENDRA CARRILLO MD on Aug 12 2022 7:04PM EST [facility] Radiology Study observation (narrative) [facility] XR Chest PA and LateralOrder ed By: [facility] Provider on 08-12-2022 [facility] XR ABDOMEN 1V SUPINEon 08-11 XR ABDOMEN [...] as discussed under Results portion of report. Upper Shaper: [facility] Transcribe Date/Time: Aug 13 2022 11:10A Dictated by : KARLA BENAVIDEZ DO This examination was interpreted and the report reviewed and electronically signed by: KARLA BENAVIDEZ DO on Aug 13 2022 11:13AM EST [id number] Normal [facility] XR Abdomen Supine and Uprigh ton 08-11-2022 Radiology Study observation (narrative) [facility] CHYNA SCREENING W TOMOon 07-23 [facility] STREP A MOLECULAR (POC)on Procedural Control Valid [facility] Strep A (POCT) Negative Negative [facility] CT UROGRAM WO/W IVCONon 05-18 [facility] UA DIP, URINE (POC)on 2022 BILIRUBIN UA (POCT) Negative Negative [facility] CLARITY UA (POCT) Clear [facility] COLOR UA (POCT) [place] [facility] GLUCOSE UA (POCT) Negative Negative mg/dL [facility] HEMOGLOBIN/BLOOD UA (POCT) Large Abnormal Negative [facility] KETONE UA (POCT) Negative Negative mg/dL [facility] LEUKOCYTES UA (POCT) Small Abnormal Negative [facility] NITRITE UA (POCT) Negative Negative [facility] PH UA (POCT) 6.5 4.5 - 8.0 [facility] Protein Ql (U) 100 mg/dL Abnormal Negative mg/dL [facility] SPECIFIC GRAVITY UA (POCT) 1.015 1.005 - 1.030 [facility] UROBILINOGEN UA (POCT) 0.2 E.U./dL Sallie l E.U./dL [facility] CT CHEST WO IVCONon 04-06-20 [facility] UA DIP, URINE (POC)on 2021 BILIRUBIN UA (POCT) Negative Negative [facility] CLARITY UA (POCT) Clear [facility] COLOR UA (POCT) Yellow [facility] GLUCOSE UA (POCT) Negative Negative mg/dL [facility] HEMOGLOBIN/BLOOD UA (POCT) Moderate Abnormal Negative [facility] KETONE UA (POCT) Negative Negative mg/dL [facility] LEUKOCYTES UA (POCT) Trace Abnormal Negative [facility] NITRITE UA (POCT) Negative Negative [facility] PH UA (POCT) 5.0 4.5 - 8.0 [facility] Protein Ql (U) Negative Negative mg/dL [facility] SPECIFIC GRAVITY UA (POCT) >=1.030 1.005 - 1.030 [facility] UROBILINOGEN UA (POCT) 0.2 E.U./dL Sallie l E.U./dL [facility] URINE CULTUREon 03-18-2022 Bacteria identified Cx Nom (U) >=100,000 CFU/ml Escherichia coli Abnormal [facility] Bacteria identified Cx Nom (U) 50,000-<100,000 CFU/ml Proteus mirabilis Abnormal [facility] UA DIP, URINE (POC)on 2021 BILIRUBIN UA (POCT) Negative Negative [facility] CLARITY UA (POCT) Clear [facility] COLOR UA (POCT) Yellow [facility] GLUCOSE UA (POCT) Negative Negative mg/dL [facility] HEMOGLOBIN/BLOOD UA (POCT) Small Abnormal Negative [facility] KETONE UA (POCT) Negative Negative mg/dL [facility] LEUKOCYTES UA (POCT) Moderate Abnormal Negative [facility] NITRITE UA (POCT) Negative Negative [facility] PH UA (POCT) 6.5 4.5 - 8.0 [facility] Protein Ql (U) Negative Negative mg/dL [facility] SPECIFIC GRAVITY UA (POCT) 1.020 1.005 - 1.030 [facility] UROBILINOGEN UA (POCT) 0.2 E.U./dL Sallie l E.U./dL [facility] URINE CULTUREon 03-16-2022 Bacteria identified Cx Nom (U) Invalid Interpretation Code [facility] US FEMALE PELVIS TRANSVAGon 12-01-2021 [facility] UA DIP, URINE (POC)on 2021 BILIRUBIN UA (POCT) Negative Negative [facility] CLARITY UA (POCT) Clear [facility] COLOR UA (POCT) Yellow [facility] GLUCOSE UA (POCT) Negative Negative mg/dL [facility] HEMOGLOBIN/BLOOD UA (POCT) Moderate Abnormal Negative [facility] KETONE UA (POCT) Negative Negative mg/dL [facility] LEUKOCYTES UA (POCT) Negative Negative [facility] NITRITE UA (POCT) Negative Negative [facility] PH UA (POCT) 5.0 4.5 - 8.0 [facility] Protein Ql (U) Negative Negative mg/dL [facility] SPECIFIC GRAVITY UA (POCT) >=1.030 1.005 - 1.030 [facility] UROBILINOGEN UA (POCT) 0.2 E.U./dL Sallie l E.U./dL [facility] UA DIP, URINE (POC)on 2021 BILIRUBIN UA (POCT) Negative Negative [facility] CLARITY UA (POCT) Clear [facility] COLOR UA (POCT) Yellow [facility] GLUCOSE UA (POCT) Negative Negative mg/dL [facility] HEMOGLOBIN/BLOOD UA (POCT) Large Abnormal Negative [facility] KETONE UA (POCT) Negative Negative mg/dL [facility] LEUKOCYTES UA (POCT) Small Abnormal Negative [facility] NITRITE UA (POCT) Negative Negative [facility] PH UA (POCT) 5.0 4.5 - 8.0 [facility] Protein Ql (U) 30 mg/dL Abnormal Negative mg/dL [facility] SPECIFIC GRAVITY UA (POCT) 1.015 1.005 - 1.030 [facility] UROBILINOGEN UA (POCT) 0.2 E.U./dL Sallie l E.U./dL [facility] VARICELLA ZOSTER IGGon 08-14 Varicella Zoster IgG, Qual Positive Positive [facility] XR Ankle - right AP and Late ral and obliqueon 06-26-2020 IMPRESSION: Osseous demineralization with nondisplaced fracture of the lateral malleolus. Upper Shaper: [facility] Transcribe Date/Time: Jun 26 2020 4:20P Dictated by : JIMENA CHI MD This examination was interpreted and the report reviewed and electronically signed by: JIMENA CHI MD on Jun 26 2020 4:25PM [facility] DIVISION OF RADIOLOGY * * *Final Report* [...] Plantar calcaneal enthesophyte. DIVISION OF RADIOLOGY Provider, [facility] - 06/26/2020 * * *Final Report* * [...] with nondisplaced fracture of the lateral malleolus. Upper Shaper: [facility] Transcribe Date/Time: Jun 26 2020 4:20P Dictated by : JIMENA CHI MD This examination was interpreted and the report reviewed and electronically signed by: JIMENA CHI MD on Jun 26 2020 4:25PM EST [facility] Radiology Study observation (narrative) [facility] XR Ankle - right AP and Late ral and obliqueOrdered By: [facility] Provider on 06-26-2020 [facility] Vital Signs Date Time Vital Sign Value Performing Clinician Ramiro shelby 01-10-2025 08:32-0400 Body height 165.1 cm Jasmyne Day MD Work Phone: [facility] 01-10-2025 08:32-0400 Body mass index (BMI) [Ratio] 27.12 kg/m2 Jasmyne Day MD Work Phone: [facility] 01-10-2025 08:32-0400 Body weight 73.94 kg Jasmyne Day MD Work Phone: [facility] 01-09-2025 14:19-0400 Body height 165.1 cm Mathew Yang Jr., MD Work Phone: [facility] 01-09-2025 14:19-0400 Body mass index (BMI) [Ratio] 26.96 kg/m2 Mathew Yang Jr., MD Work Phone: [facility] 01-09-2025 14:19-0400 Body weight 73.48 kg Mathew Yang Jr., MD Work Phone: [facility] 12-27-2024 13:52-0400 Diastolic blood pressure 82 mm[Hg] Peyton Diaz [employer] DIRECT[employer] Work Phone: [facility] 12-27-2024 13:52-0400 Heart rate 82 /min Peyton Diaz [employer]MENT SERVICES DIRECTOR Work Phone: [facility] 12-27-2024 13:52-0400 Respiratory rate 16 /min Peyton Diaz [employer]OYMENT SERVICES DIRECTOR Work Phone: [facility] 12-27-2024 13:52-0400 SaO2% (BldA) [Mass fraction] 100 % Peyton Diaz [employer]MENT SERVICES DIRECTOR Work Phone: [facility] 12-27-2024 13:52-0400 Systolic blood pressure 114 mm[Hg] Peyton Diaz [employer]MENT SERVICES DIRECTOR Work Phone: [facility] 12-22-2024 14:10-0400 Body temperature 98.5 [degF] Dr. Priyanka Smith MD Work Phone: 0(529)889-149818 [place] [address] 12-22-2024 14:10-0400 Diastolic blood pressure 86 mm[Hg] Dr. Priyanka Smith MD Work Phone: 5(296)344-660118 [place] [address] 12-22-2024 14:10-0400 Heart rate 80 /min Dr. Priyanka Smith MD Work Phone: 7(503)075-349218 [place] [address] 12-22-2024 14:10-0400 Respiratory rate 16 /min Dr. Priyanka Smith MD Work Phone: 2(406)311-498218 [place] [address] 12-22-2024 14:10-0400 SaO2% (BldA) [Mass fraction] 100 % Dr. Priyanka Smith MD Work Phone: 3(448)157-355918 [place] [address] 12-22-2024 14:10-0400 Systolic blood pressure 121 mm[Hg] Dr. Priyanka Smith MD Work Phone: 1(284)473-975018 [place] [address] 12-22-2024 12:21-0400 Body height 165.[address] Priyanka Smith MD Work Phone: 0(350)297-455918 [place] [address] 12-22-2024 12:21-0400 Body mass index (BMI) [Ratio] 26 kg/m2 Dr. Priyanka Smith MD Work Phone: 8(388)433-802918 [place] [address] 12-22-2024 12:21-0400 Body weight [address] Priyanka Smith MD Work Phone: 3(774)[phone] [place] [address] 12-13-2024 07:57-0400 Diastolic blood pressure 83 mm[Hg] Cyndi Naik [employer]MENT SERVICES DIRECTOR Work Phone: [facility] 12-13-2024 07:57-0400 Systolic blood pressure 121 mm[Hg] Cyndi Naik [employer]OYMENT SERVICES DIRECTOR Work Phone: [facility] 12-13-2024 07:37-0400 Body mass index (BMI) [Ratio] 26.49 kg/m2 Cyndi Podlogar [employer]EMPLOYMENT SERVICES DIRECTOR Work Phone: [facility] 12-13-2024 07:37-0400 Body weight 72.21 kg Cyndi Podlogar [employer]MENT SERVICES DIRECTOR Work Phone: [facility] 12-13-2024 07:37-0400 Heart rate 92 /min Cyndi Podlogar [employer]EMPLOYMENT SERVICES DIRECTOR Work Phone: [facility] 12-13-2024 07:37-0400 Respiratory rate 12 /min Cyndi Podlogar [employer]OYMENT SERVICES DIRECTOR Work Phone: [facility] 12-06-2024 08:07-0400 Body height 165.1 cm Charis Plotts [employer] Work Phone: [facility] 12-06-2024 08:07-0400 Body mass index (BMI) [Ratio] 26.69 kg/m2 Charis Plotts [employer] Work Phone: [facility] 12-06-2024 08:07-0400 Body weight 72.76 kg Charis Greents [employer] Work Phone: [facility] 12-06-2024 08:07-0400 Diastolic blood pressure 60 mm[Hg] Charis Plotts [employer] Work Phone: [facility] 12-06-2024 08:07-0400 Systolic blood pressure 98 mm[Hg] Charis Plotts [employer] Work Phone: [facility] 11-29-2024 09:39-0400 SaO2% (BldA) [Mass fraction] 99 % Jasmyne Day MD Work Phone: [facility] 11-29-2024 09:35-0400 Body height 165.1 cm Jasmyne Day MD Work Phone: [facility] 11-29-2024 09:35-0400 Body mass index (BMI) [Ratio] 26.33 kg/m2 Jasmyne Day MD Work Phone: [facility] 11-29-2024 09:35-0400 Body weight 71.76 kg Jasmyne Day MD Work Phone: [facility] 11-16-2024 07:35-0400 Body height 165.1 cm Gemma Roberts [employer]MENT SERVICES DIRECTOR Work Phone: [facility] 11-16-2024 07:35-0400 Body mass index (BMI) [Ratio] 26.45 kg/m2 Gemma Roberts [employer]OYMENT SERVICES DIRECTOR Work Phone: [facility] 11-16-2024 07:35-0400 Body weight 72.1 kg Gemma Roberts [employer]OYMENT SERVICES DIRECTOR Work Phone: [facility] 11-16-2024 07:35-0400 SaO2% (BldA) [Mass fraction] 98 % Gemma Roberts [employer]MENT SERVICES DIRECTOR Work Phone: [facility] 10-31-2024 08:48-0400 Body mass index (BMI) [Ratio] 27.9 kg/m2 German Grubbs [employer]MENT SERVICES DIRECTOR Work Phone: [facility] 10-31-2024 08:48-0400 Body weight 72.58 kg German Grubbs [employer]MENT SERVICES DIRECTOR Work Phone: [facility] 10-31-2024 08:48-0400 Diastolic blood pressure 71 mm[Hg] German Grubbs [employer]MENT SERVICES DIRECTOR Work Phone: [facility] 10-31-2024 08:48-0400 Heart rate 67 /min German Grubbs [employer]EMPLOYMENT SERVICES DIRECTOR Work Phone: [facility] 10-31-2024 08:48-0400 Respiratory rate 16 /min German Grubbs [employer]OYMENT SERVICES DIRECTOR Work Phone: [facility] 10-31-2024 08:48-0400 Systolic blood pressure 109 mm[Hg] German Grubbs [employer]MENT SERVICES DIRECTOR Work Phone: [facility] 10-26-2024 09:19-0400 Body height 161.3 cm Karen Alcantara MD Work Phone: [facility] 10-26-2024 09:19-0400 Body mass index (BMI) [Ratio] 27.9 kg/m2 Karen Alcantara MD Work Phone: [facility] 10-26-2024 09:19-0400 Body weight 72.58 kg Karen Alcantara MD Work Phone: [facility] 10-26-2024 09:19-0400 Diastolic blood pressure 58 mm[Hg] Karen Alcantara MD Work Phone: [facility] 10-26-2024 09:19-0400 Heart rate 101 /min Karen Alcantara MD Work Phone: [facility] 10-26-2024 09:19-0400 Respiratory rate 14 /min Karen Alcantara MD Work Phone: [facility] 10-26-2024 09:19-0400 SaO2% (BldA) [Mass fraction] 100 % Karen Alcantara MD Work Phone: [facility] 10-26-2024 09:19-0400 Systolic blood pressure 102 mm[Hg] Karen Alcantara MD Work Phone: [facility] 10-26-2024 09:18-0400 Body height 161.3 cm Pulm Wstr Work Phone: [facility] 10-26-2024 09:18-0400 Body mass index (BMI) [Ratio] 27.9 kg/m2 Pulm Wstr Work Phone: [facility] 10-26-2024 09:18-0400 Body weight 72.58 kg Pulm Wstr Work Phone: [facility] 10-26-2024 09:18-0400 Heart rate 101 /min Pulm Wstr Work Phone: [facility] 10-26-2024 09:18-0400 Respiratory rate 14 /min Pulm Wstr Work Phone: [facility] 10-26-2024 09:18-0400 SaO2% (BldA) [Mass fraction] 100 % Pulm Wstr Work Phone: [facility] 09-22-2024 12:56-0400 Diastolic blood pressure 62 mm[Hg] Rika Teri [employer]MENT [employer] DIRECTOR Work Phone: [facility] 09-22-2024 12:56-0400 Heart rate 117 /min Rika Teri [employer]MENT SERVICES DIRECTOR Work Phone: [facility] 09-22-2024 12:56-0400 Systolic blood pressure 85 mm[Hg] Rika Teri [employer]MENT SERVICES DIRECTOR Work Phone: [facility] 09-22-2024 12:54-0400 Body height 165.1 cm Rika Teri [employer]OYMENT SERVICES DIRECTOR Work Phone: [facility] 09-22-2024 12:54-0400 Body mass index (BMI) [Ratio] 27.26 kg/m2 Rika Teri [employer]OYMENT SERVICES DIRECTOR Work Phone: [facility] 09-22-2024 12:54-0400 Body weight 74.3 kg Rika Teri [employer]OYMENT SERVICES DIRECTOR Work Phone: [facility] 09-22-2024 12:54-0400 SaO2% (BldA) [Mass fraction] 100 % Rika Teri [employer]MENT SERVICES DIRECTOR Work Phone: [facility] 09-11-2024 11:46-0400 Diastolic blood pressure 64 mm[Hg] Jasmyne Day MD Work Phone: [facility] 09-11-2024 11:46-0400 Heart rate 116 /min Jasmyne Day MD Work Phone: [facility] 09-11-2024 11:46-0400 Respiratory rate 18 /min Jasmyne Day MD Work Phone: [facility] 09-11-2024 11:46-0400 SaO2% (BldA) [Mass fraction] 99 % Jasmyne Day MD Work Phone: [facility] 09-11-2024 11:46-0400 Systolic blood pressure 104 mm[Hg] Jasmyne Day MD Work Phone: [facility] 08-31-2024 10:30-0400 Body mass index (BMI) [Ratio] 28.47 kg/m2 Priyanka Smiht MD Work Phone: [facility] 08-31-2024 10:30-0400 Body weight 77.6 kg Priyanka Smith MD Work Phone: [facility] 08-31-2024 10:30-0400 Diastolic blood pressure 82 mm[Hg] Priyanka Smith MD Work Phone: [facility] 08-31-2024 10:30-0400 Heart rate 80 /min Priyanka Smith MD Work Phone: [facility] 08-31-2024 10:30-0400 Respiratory rate 16 /min Priyanka Smith MD Work Phone: [facility] 08-31-2024 10:30-0400 Systolic blood pressure 112 mm[Hg] Priyakna Smith MD Work Phone: [facility] 08-31-2024 09:41-0400 Body mass index (BMI) [Ratio] 28.39 kg/m2 Latha Cuevas MD Work Phone: [facility] 08-31-2024 09:41-0400 Body temperature 98.71 [degF] Latha Cuevas MD Work Phone: [facility] 08-31-2024 09:41-0400 Body weight 77.38 kg Latha Cuevas MD Work Phone: [facility] 08-31-2024 09:41-0400 Diastolic blood pressure 66 mm[Hg] Latha Cuevas MD Work Phone: [facility] 08-31-2024 09:41-0400 Respiratory rate 14 /min Latha Cuevas MD Work Phone: [facility] 08-31-2024 09:41-0400 Systolic blood pressure 118 mm[Hg] Latha Cuevas MD Work Phone: [facility] 08-09-2024 13:49-0400 Body height 165.1 cm Maira Coyner [employer]MENT [employer] DIRECTOR Work Phone: [facility] 08-09-2024 13:49-0400 Body mass index (BMI) [Ratio] 28.29 kg/m2 Maira Coyner [employer]OYMENT SERVICES DIRECTOR Work Phone: [facility] 08-09-2024 13:49-0400 Body weight 77.11 kg Maira Chen [employer]MENT [employer] DIRECTOR Work Phone: [facility] 08-03-2024 09:55-0400 Body height 165.1 cm Bogdna Roberts MD Work Phone: [facility] 08-03-2024 09:55-0400 Body mass index (BMI) [Ratio] 28.84 kg/m2 Bogdan Roberts MD Work Phone: [facility] 08-03-2024 09:55-0400 Body weight 78.6 kg Bogdan Roberts MD Work Phone: [facility] 08-03-2024 09:55-0400 Diastolic blood pressure 76 mm[Hg] Bogdan Roberts MD Work Phone: [facility] 08-03-2024 09:55-0400 Heart rate 88 /min Bogdan Roberts MD Work Phone: [facility] 08-03-2024 09:55-0400 SaO2% (BldA) [Mass fraction] 99 % Bogdan Roberts MD Work Phone: [facility] 08-03-2024 09:55-0400 Systolic blood pressure 114 mm[Hg] Bogdan Roberts MD Work Phone: [facility] 07-31-2024 11:21-0400 Diastolic blood pressure 64 mm[Hg] Juwan Land [employer] DIRECTOR Work Phone: [facility] 07-31-2024 11:21-0400 Systolic blood pressure 92 mm[Hg] Juwan Land [employer]MENT [employer] DIRECTOR Work Phone: [facility] 07-31-2024 10:49-0400 Body mass index (BMI) [Ratio] 29.29 kg/m2 Juwan Amadou [employer]MENT [employer] DIRECTOR Work Phone: [facility] 07-31-2024 10:49-0400 Body weight 79.83 kg Juwan Amadou [employer]MENT [employer] DIRECTOR Work Phone: [facility] 07-31-2024 10:49-0400 Heart rate 90 /min Juwan Amadou [employer]MENT SERVICES DIRECTOR Work Phone: [facility] 07-31-2024 10:49-0400 Respiratory rate 16 /min Juwan Amadou [employer]MENT SERVICES DIRECTOR Work Phone: [facility] 07-31-2024 10:49-0400 SaO2% (BldA) [Mass fraction] 100 % Juwan Amadou [employer]MENT SERVICES DIRECTOR Work Phone: [facility] 07-10-2024 09:36-0500 Body height 165.1 cm Jacqueline Metcalff [employer]MENT [employer] DIRECTOR Work Phone: [facility] 07-10-2024 09:36-0500 Body mass index (BMI) [Ratio] 29.64 kg/m2 Jacqueline Leonhof [employer]MENT SERVICES DIRECTOR Work Phone: [facility] 07-10-2024 09:36-0500 Body weight 80.8 kg Jacqueline Metcalff [employer]MENT [employer] DIRECTOR Work Phone: [facility] 07-10-2024 09:36-0500 Diastolic blood pressure 66 mm[Hg] Jacqueline Leonhof [employer]MENT SERVICES DIRECTOR Work Phone: [facility] 07-10-2024 09:36-0500 Heart rate 88 /min Jacqueline Leonhof [employer]MENT SERVICES DIRECTOR Work Phone: [facility] 07-10-2024 09:36-0500 Respiratory rate 16 /min Jacqueline Leonhof [employer]MENT SERVICES DIRECTOR Work Phone: [facility] 07-10-2024 09:36-0500 Systolic blood pressure 98 mm[Hg] Jacqueline Valadez [employer] DIRECTOR Work Phone: [facility] 06-20-2024 08:44-0500 Body mass index (BMI) [Ratio] 28.96 kg/m2 Becca Click [employer] DIRECTOR Work Phone: [facility] 06-20-2024 08:44-0500 Body weight 78.93 kg Becca Click [employer] DIRECTOR Work Phone: [facility] 06-20-2024 08:44-0500 Diastolic blood pressure 69 mm[Hg] Becca Click [employer] DIRECTOR Work Phone: [facility] 06-20-2024 08:44-0500 Heart rate 80 /min Becca Click [employer] DIRECTOR Work Phone: [facility] 06-20-2024 08:44-0500 SaO2% (BldA) [Mass fraction] 97 % Becca Click [employer] DIRECTOR Work Phone: [facility] 06-20-2024 08:44-0500 Systolic blood pressure 99 mm[Hg] Becca Click [employer] DIRECTOR Work Phone: [facility] 05-30-2024 07:45-0500 Body height 165.1 cm Gemma Roberts [employer] SERVICES DIRECTOR Work Phone: [facility] 05-30-2024 07:45-0500 Body mass index (BMI) [Ratio] 29.86 kg/m2 Gemma Roberts [employer] DIRECTOR Work Phone: [facility] 05-30-2024 07:45-0500 Body weight 81.4 kg Gemma Roberts [employer] DIRECTOR Work Phone: [facility] 05-30-2024 07:45-0500 Diastolic blood pressure 89 mm[Hg] Gemma Roberts [employer] DIRECTOR Work Phone: [facility] Comment on above: Provider notified 05-30-2024 07:45-0500 Heart rate 77 /min Gemma Roberts [employer] DIRECTOR Work Phone: [facility] 05-30-2024 07:45-0500 SaO2% (BldA) [Mass fraction] 98 % Gemma Roberts [employer] DIRECTOR Work Phone: [facility] 05-30-2024 07:45-0500 Systolic blood pressure 153 mm[Hg] Gemma Roberts [employer] DIRECTOR Work Phone: [facility] Comment on above: Provider notified 05-24-2024 08:16-0500 Body mass index (BMI) [Ratio] 29.86 kg/m2 Jacqueline Valadez [employer] DIRECTOR Work Phone: [facility] 05-24-2024 08:16-0500 Body weight 81.4 kg Jacqueline Valadez [employer]MENT [employer] DIRECTOR Work Phone: [facility] 05-24-2024 08:16-0500 Diastolic blood pressure 90 mm[Hg] Jacqueline Valadez [employer]MENT SERVICES DIRECTOR Work Phone: [facility] 05-24-2024 08:16-0500 Heart rate 93 /min Jacqueline Valadez [employer]MENT SERVICES DIRECTOR Work Phone: [facility] 05-24-2024 08:16-0500 Respiratory rate 16 /min Jacqueline Valadez [employer]MENT SERVICES DIRECTOR Work Phone: [facility] 05-24-2024 08:16-0500 SaO2% (BldA) [Mass fraction] 100 % Jacqueline Valadez [employer]MENT SERVICES DIRECTOR Work Phone: [facility] 05-24-2024 08:16-0500 Systolic blood pressure 120 mm[Hg] Jacqueline Valadez [employer] DIRECTOR Work Phone: [facility] 05-18-2024 11:07-0500 Diastolic blood pressure 98 mm[Hg] Latha Cuevas MD Work Phone: [facility] Comment on above: home BP monitor 05-18-2024 11:07-0500 Systolic blood pressure 146 mm[Hg] Latha Cuevas MD Work Phone: [facility] Comment on above: home BP monitor 05-18-2024 11:02-0500 Body height 165.1 cm Latha Cuevas MD Work Phone: [facility] 05-18-2024 11:02-0500 Body mass index (BMI) [Ratio] 29.85 kg/m2 Latha Cuevas MD Work Phone: [facility] 05-18-2024 11:02-0500 Body weight 81.38 kg Latha Cuevas MD Work Phone: [facility] 05-18-2024 11:02-0500 Heart rate 87 /min Latha Cuevas MD Work Phone: [facility] 05-18-2024 11:02-0500 Respiratory rate 20 /min Latha Cuevas MD Work Phone: [facility] 05-18-2024 11:02-0500 SaO2% (BldA) [Mass fraction] 97 % Latha Cuevas MD Work Phone: [facility] 05-05-2024 08:14-0500 Body height 165.1 cm Latha Cuevas MD Work Phone: [facility] 05-05-2024 08:14-0500 Body mass index (BMI) [Ratio] 29.39 kg/m2 Latha Cuevas MD Work Phone: [facility] 05-05-2024 08:14-0500 Body temperature 98.2 [degF] Latha Cuevas MD Work Phone: [facility] 05-05-2024 08:14-0500 Body weight 80.11 kg Latha Cuevas MD Work Phone: [facility] 05-05-2024 08:14-0500 Diastolic blood pressure 76 mm[Hg] Latha Cuevas MD Work Phone: [facility] 05-05-2024 08:14-0500 Heart rate 91 /min Latha Cuevas MD Work Phone: [facility] 05-05-2024 08:14-0500 SaO2% (BldA) [Mass fraction] 97 % Latha Cuevas MD Work Phone: [facility] 05-05-2024 08:14-0500 Systolic blood pressure 108 mm[Hg] Latha Cuevas MD Work Phone: [facility] 04-17-2024 09:20-0500 Body mass index (BMI) [Ratio] 29.29 kg/m2 Karen Alcantara MD Work Phone: [facility] 04-17-2024 09:20-0500 Body weight 79.83 kg Karen Alcantara MD Work Phone: [facility] 04-10-2024 15:56-0500 Body mass index (BMI) [Ratio] 30.12 kg/m2 Jonathan Monterroso [employer]EMPLOYMENT SERVICES DIRECTOR Work Phone: [facility] 04-10-2024 15:56-0500 Body weight 82.1 kg Jonathan Monterroso APRN.EMPLOYMENT SERVICES DIRECTOR Work Phone: [facility] 04-10-2024 15:56-0500 Diastolic blood pressure 79 mm[Hg] Jonathan Monterroso APRN.EMPLOYMENT SERVICES DIRECTOR Work Phone: [facility] 04-10-2024 15:56-0500 Heart rate 86 /min Jonathan Monterroso APRN.EMPLOYMENT SERVICES DIRECTOR Work Phone: [facility] 04-10-2024 15:56-0500 Respiratory rate 16 /min Jonathan Monterroso APRN.EMPLOYMENT SERVICES DIRECTOR Work Phone: [facility] 04-10-2024 15:56-0500 Systolic blood pressure 119 mm[Hg] Jonathan Monterroso APRN.EMPLOYMENT SERVICES DIRECTOR Work Phone: [facility] 04-07-2024 09:26-0500 Body height 165.1 cm Phong Blake MD Work Phone: [facility] 04-07-2024 09:26-0500 Body mass index (BMI) [Ratio] 31.45 kg/m2 Phong Blake MD Work Phone: [employer] 04-07-2024 09:26-0500 Body weight 85.73 kg Phong Blake MD Work Phone: [employer] 04-07-2024 09:26-0500 Diastolic blood pressure 68 mm[Hg] Phong Blake MD Work Phone: [facility] [employer] 04-07-2024 09:26-0500 Heart rate 84 /min Phong Blake MD Work Phone: [employer] 04-07-2024 09:26-0500 Systolic blood pressure 104 mm[Hg] Phong Blake MD Work Phone: [employer] 03-23-2024 17:10-0500 Body temperature 97.2 [degF] Katherine Bowen MD Work Phone: [employer] 03-23-2024 17:10-0500 Diastolic blood pressure 87 mm[Hg] Katherine Bowen MD Work Phone: [facility] [employer] 03-23-2024 17:10-0500 Heart rate 92 /min Katherine Bowen MD Work Phone: [employer] 03-23-2024 17:10-0500 Respiratory rate 16 /min Katherine Bowen MD Work Phone: [facility] [employer] 03-23-2024 17:10-0500 SaO2% (BldA) [Mass fraction] 100 % Katherine Bowen MD Work Phone: [facility] [employer] 03-23-2024 17:10-0500 Systolic blood pressure 119 mm[Hg] Katherine Bowen MD Work Phone: [facility] [employer] 03-16-2024 14:13-0400 Body mass index (BMI) [Ratio] 30.82 kg/m2 Priyanka Smith MD Work Phone: [facility] 03-16-2024 14:13-0400 Body weight 84 kg Priyanka Smith MD Work Phone: [facility] 03-16-2024 14:13-0400 Diastolic blood pressure 68 mm[Hg] Priyanka Smith MD Work Phone: [facility] 03-16-2024 14:13-0400 Heart rate 74 /min Priyanka Smith MD Work Phone: [facility] 03-16-2024 14:13-0400 Respiratory rate 16 /min Priyanka Smith MD Work Phone: [facility] 03-16-2024 14:13-0400 Systolic blood pressure 100 mm[Hg] Priyanka Smith MD Work Phone: [facility] 03-16-2024 08:57-0400 Body height 165.1 cm Gemma Roberts APRN.EMPLOYMENT SERVICES DIRECTOR Work Phone: [facility] 03-16-2024 08:57-0400 Body mass index (BMI) [Ratio] 30.78 kg/m2 Gemma Roberts APRN.EMPLOYMENT SERVICES DIRECTOR Work Phone: [facility] 03-16-2024 08:57-0400 Body weight 83.9 kg Gemma Roberts APRN.EMPLOYMENT SERVICES DIRECTOR Work Phone: [facility] 03-16-2024 08:57-0400 Diastolic blood pressure 74 mm[Hg] Gemma Roberts APRN.EMPLOYMENT SERVICES DIRECTOR Work Phone: [facility] 03-16-2024 08:57-0400 Heart rate 78 /min Gemma Roberts APRN.EMPLOYMENT SERVICES DIRECTOR Work Phone: [facility] 03-16-2024 08:57-0400 SaO2% (BldA) [Mass fraction] 98 % Gemma Roberts APRN.EMPLOYMENT SERVICES DIRECTOR Work Phone: [facility] 03-16-2024 08:57-0400 Systolic blood pressure 110 mm[Hg] Gemma Roberts APRN.EMPLOYMENT SERVICES DIRECTOR Work Phone: [facility] 03-09-2024 12:38-0400 Body temperature 97.59 [degF] Noel Contreras MD Work Phone: [facility] [employer] 03-09-2024 12:38-0400 Diastolic blood pressure 66 mm[Hg] Noel Contreras MD Work Phone: [facility] 03-09-2024 12:38-0400 Heart rate 87 /min Noel Contreras MD Work Phone: [facility] 03-09-2024 12:38-0400 Respiratory rate 12 /min Noel Contreras MD Work Phone: [facility] 03-09-2024 12:38-0400 SaO2% (BldA) [Mass fraction] 99 % Noel Contreras MD Work Phone: [facility] 03-09-2024 12:38-0400 Systolic blood pressure 99 mm[Hg] Noel Contreras MD Work Phone: [facility] 03-07-2024 09:08-0400 Body height 165.1 cm Noel Contreras MD Work Phone: [facility] 03-07-2024 09:08-0400 Body mass index (BMI) [Ratio] 29.62 kg/m2 Noel Contreras MD Work Phone: [facility] 03-07-2024 09:08-0400 Body weight 80.74 kg Noel Contreras MD Work Phone: [facility] 03-03-2024 10:24-0400 Diastolic blood pressure 60 mm[Hg] Wiley Benitez MD Work Phone: [facility] 03-03-2024 10:24-0400 Heart rate 99 /min Wiley Benitez MD Work Phone: [facility] 03-03-2024 10:24-0400 Systolic blood pressure 99 mm[Hg] Wiley Benitez MD Work Phone: [facility] 03-01-2024 08:38-0400 Body mass index (BMI) [Ratio] 30.32 kg/m2 Jacqueline Valadez APRN.EMPLOYMENT SERVICES DIRECTOR Work Phone: [facility] 03-01-2024 08:38-0400 Body weight 82.64 kg Jacqueline Valadez APRN.EMPLOYMENT SERVICES DIRECTOR Work Phone: [facility] 03-01-2024 08:38-0400 Diastolic blood pressure 58 mm[Hg] Jacqueline Tannhof [employer]EMPLOYMENT SERVICES DIRECTOR Work Phone: [facility] 03-01-2024 08:38-0400 Heart rate 72 /min Jacqueline Leonhof [employer]EMPLOYMENT SERVICES DIRECTOR Work Phone: [facility] 03-01-2024 08:38-0400 Respiratory rate 16 /min Jacqueline Leonhof [employer]EMPLOYMENT SERVICES DIRECTOR Work Phone: [facility] 03-01-2024 08:38-0400 Systolic blood pressure 82 mm[Hg] Jacqueline Leonhof [employer]EMPLOYMENT SERVICES DIRECTOR Work Phone: [facility] 01-13-2024 14:01-0400 Body height 165.1 cm Bogdan Roberts MD Work Phone: [facility] 01-13-2024 14:01-0400 Body mass index (BMI) [Ratio] 32.14 kg/m2 Bogdan Roberts MD Work Phone: [facility] 01-13-2024 14:01-0400 Body weight 87.6 kg Bogdan Roberts MD Work Phone: [facility] 01-13-2024 14:01-0400 Diastolic blood pressure 66 mm[Hg] Bogdan Roberts MD Work Phone: [facility] 01-13-2024 14:01-0400 Heart rate 62 /min Bogdan Roberts MD Work Phone: [facility] 01-13-2024 14:01-0400 SaO2% (BldA) [Mass fraction] 98 % Bogdan Roberts MD Work Phone: [facility] 01-13-2024 14:01-0400 Systolic blood pressure 101 mm[Hg] Bogdan Roberts MD Work Phone: [facility] 01-11-2024 11:18-0400 Body height 162.6 cm Wiley Benitez MD Work Phone: [facility] 01-11-2024 11:18-0400 Body mass index (BMI) [Ratio] 32.96 kg/m2 Wiley Benitez MD Work Phone: [facility] 01-11-2024 11:18-0400 Body weight 87.09 kg Wiley Benitez MD Work Phone: [facility] 01-11-2024 11:18-0400 Diastolic blood pressure 80 mm[Hg] Wiley Benitez MD Work Phone: [facility] 01-11-2024 11:18-0400 Systolic blood pressure 118 mm[Hg] Wiley Benitez MD Work Phone: [facility] 12-28-2023 07:05-0400 Body mass index (BMI) [Ratio] 32.54 kg/m2 Jacqueline Valadez [employer]EMPLOYMENT SERVICES DIRECTOR Work Phone: [facility] 12-28-2023 07:05-0400 Body weight 86 kg Jacqueline Valadez [employer]EMPLOYMENT SERVICES DIRECTOR Work Phone: [facility] 12-28-2023 07:05-0400 Diastolic blood pressure 70 mm[Hg] Jacqueline Leonhof [employer]EMPLOYMENT SERVICES DIRECTOR Work Phone: [facility] 12-28-2023 07:05-0400 Heart rate 70 /min Jacqueline Leonhof [employer]EMPLOYMENT SERVICES DIRECTOR Work Phone: [facility] 12-28-2023 07:05-0400 Respiratory rate 16 /min Jacqueline Valadez [employer]EMPLOYMENT SERVICES DIRECTOR Work Phone: [facility] 12-28-2023 07:05-0400 SaO2% (BldA) [Mass fraction] 97 % Jacqueline Leonhof [employer]EMPLOYMENT SERVICES DIRECTOR Work Phone: [facility] 12-28-2023 07:05-0400 Systolic blood pressure 110 mm[Hg] Jacqueline Leonhof [employer]EMPLOYMENT SERVICES DIRECTOR Work Phone: [facility] 12-21-2023 13:53-0400 Body height 162.6 cm Mathew Yang Jr., MD Work Phone: [facility] 12-21-2023 13:53-0400 Body mass index (BMI) [Ratio] 32.44 kg/m2 Mathew Yang Jr., MD Work Phone: [facility] 12-21-2023 13:53-0400 Body weight 85.73 kg Mathew Yang Jr., MD Work Phone: [facility] 12-01-2023 13:46-0400 Diastolic blood pressure 67 mm[Hg] Wiley Benitez MD Work Phone: [facility] 12-01-2023 13:46-0400 Systolic blood pressure 100 mm[Hg] Wiley Benitez MD Work Phone: [facility] 11-29-2023 08:14-0400 Body height 162.6 cm Charis Plotts [employer] Work Phone: [facility] 11-29-2023 08:14-0400 Body mass index (BMI) [Ratio] 32.61 kg/m2 Charis Plotts [employer] Work Phone: [facility] 11-29-2023 08:14-0400 Body weight 86.18 kg Charis Plotts [employer] Work Phone: [facility] 11-29-2023 08:14-0400 Diastolic blood pressure 76 mm[Hg] Charis Plotts [employer] Work Phone: [facility] 11-29-2023 08:14-0400 Systolic blood pressure 114 mm[Hg] Charis Plotts [employer] Work Phone: [facility] 11-09-2023 08:49-0400 Body mass index (BMI) [Ratio] 32.28 kg/m2 Mathew Yang Jr., MD Work Phone: [facility] 11-09-2023 08:49-0400 Body weight 88 kg Mathew Yang Jr., MD Work Phone: [facility] 10-14-2023 06:53-0400 Body mass index (BMI) [Ratio] 32.62 kg/m2 Jacqueline Valadez [employer]EMPLOYMENT SERVICES DIRECTOR Work Phone: [facility] 10-14-2023 06:53-0400 Body weight 88.91 kg Jacqueline Leonhof [employer]EMPLOYMENT SERVICES DIRECTOR Work Phone: [facility] 10-14-2023 06:53-0400 Diastolic blood pressure 66 mm[Hg] Jacqueline Leonhof [employer]EMPLOYMENT SERVICES DIRECTOR Work Phone: [facility] 10-14-2023 06:53-0400 Heart rate 98 /min Jacqueline Leonhof [employer]EMPLOYMENT SERVICES DIRECTOR Work Phone: [facility] 10-14-2023 06:53-0400 Respiratory rate 16 /min Jacqueline Leonhof [employer]EMPLOYMENT SERVICES DIRECTOR Work Phone: [facility] 10-14-2023 06:53-0400 SaO2% (BldA) [Mass fraction] 77 % Jcaqueline Leonhof [employer]EMPLOYMENT SERVICES DIRECTOR Work Phone: [facility] 10-14-2023 06:53-0400 Systolic blood pressure 98 mm[Hg] Jacqueline Leonhof [employer]EMPLOYMENT SERVICES DIRECTOR Work Phone: [facility] 10-07-2023 08:23-0400 Diastolic blood pressure 82 mm[Hg] Tariq Barley [employer] Work Phone (unformatted): [phone] [facility] 10-07-2023 08:23-0400 Systolic blood pressure 121 mm[Hg] Tariq Barley [employer] Work Phone (unformatted): [phone] [facility] 09-16-2023 13:06-0400 Body mass index (BMI) [Ratio] 32.95 kg/m2 Karen Alcantara MD Work Phone: [facility] 09-16-2023 13:06-0400 Body weight 89.81 kg Karen Alcantara MD Work Phone: [facility] 09-16-2023 13:06-0400 Diastolic blood pressure 74 mm[Hg] Karen Alcantara MD Work Phone: [facility] 09-16-2023 13:06-0400 Heart rate 91 /min Karen Alcantara MD Work Phone: [facility] 09-16-2023 13:06-0400 Respiratory rate 16 /min Karen Alcantara MD Work Phone: [facility] 09-16-2023 13:06-0400 SaO2% (BldA) [Mass fraction] 97 % Karen Alcantara MD Work Phone: [facility] 09-16-2023 13:06-0400 Systolic blood pressure 118 mm[Hg] Karen Alcantara MD Work Phone: [facility] 09-02-2023 08:21-0400 Diastolic blood pressure 72 mm[Hg] Tariq Barley [employer]EMPLOYMENT SERVICES DIRECTOR Work Phone (unformatted): [phone] [facility] 09-02-2023 08:21-0400 Systolic blood pressure 102 mm[Hg] Tariq Barley [employer]EMPLOYMENT SERVICES DIRECTOR Work Phone (unformatted): [phone] [facility] 06-22-2023 09:11-0500 Body height 165.1 cm Priyanka Smith MD Work Phone: [facility] 06-22-2023 09:11-0500 Body weight 93.62 kg Priyanka Smith MD Work Phone: [facility] 06-22-2023 09:11-0500 Diastolic blood pressure 78 mm[Hg] Priyanka Smith MD Work Phone: [facility] 06-22-2023 09:11-0500 Heart rate 72 /min Priyanka Smith MD Work Phone: [facility] 06-22-2023 09:11-0500 Respiratory rate 18 /min Priyanka Smith MD Work Phone: [facility] 06-22-2023 09:11-0500 Systolic blood pressure 118 mm[Hg] Priyanka Smith MD Work Phone: [facility] 01-15-2023 08:01-0400 Diastolic blood pressure 82 mm[Hg] John Mg MD Work Phone: [facility] 01-15-2023 08:01-0400 Heart rate 73 /min John Mg MD Work Phone: [facility] 01-15-2023 08:01-0400 Systolic blood pressure 119 mm[Hg] John Mg MD Work Phone: [facility] 01-12-2023 10:24-0400 Body height 161.3 cm Pacc 1 Work Phone: [facility] 01-12-2023 10:24-0400 Body temperature 98.4 [degF] Pacc 1 Work Phone: [facility] 01-12-2023 10:24-0400 Body weight 90.72 kg Pacc 1 Work Phone: [facility] 01-12-2023 10:24-0400 Diastolic blood pressure 77 mm[Hg] Pacc 1 Work Phone: [facility] 01-12-2023 10:24-0400 Heart rate 79 /min Pacc 1 Work Phone: [facility] 01-12-2023 10:24-0400 Respiratory rate 18 /min Pacc 1 Work Phone: [facility] 01-12-2023 10:24-0400 SaO2% (BldA) [Mass fraction] 97 % Pacc 1 Work Phone: [facility] 01-12-2023 10:24-0400 Systolic blood pressure 129 mm[Hg] Pacc 1 Work Phone: [facility] 12-22-2022 09:03-0400 Body weight 91.63 kg Priyanka Smith MD Work Phone: [facility] 12-22-2022 09:03-0400 Diastolic blood pressure 80 mm[Hg] Priyanka Smith MD Work Phone: [facility] 12-22-2022 09:03-0400 Heart rate 80 /min Priyanka Smith MD Work Phone: [facility] 12-22-2022 09:03-0400 Respiratory rate 16 /min Priyanka Smith MD Work Phone: [facility] 12-22-2022 09:03-0400 Systolic blood pressure 118 mm[Hg] Priyanka Smith MD Work Phone: [facility] 11-16-2022 09:40-0400 Body weight 92.53 kg Pulm Wstr Work Phone: [facility] 11-03-2022 10:56-0400 Body height 165.1 cm Mathew Yang Jr., MD Work Phone: [facility] 11-03-2022 10:56-0400 Body weight 92.53 kg Mathew Yang Jr., MD Work Phone: [facility] 08-20-2022 14:10-0400 Body weight 90.36 kg Priyanka Smith MD Work Phone: [facility] 08-20-2022 14:10-0400 Diastolic blood pressure 80 mm[Hg] Priyanka Smith MD Work Phone: [facility] 08-20-2022 14:10-0400 Heart rate 78 /min Priyanka Smith MD Work Phone: [facility] 08-20-2022 14:10-0400 Respiratory rate 16 /min Priyanka Smith MD Work Phone: [facility] 08-20-2022 14:10-0400 Systolic blood pressure 130 mm[Hg] Priyanka Smith MD Work Phone: [facility] 08-12-2022 18:29-0400 Body temperature 99.3 [degF] Guillermo Mccormick [employer]EMPLOYMENT SERVICES DIRECTOR Work Phone: [facility] 08-12-2022 18:29-0400 Body weight 89.63 kg Guillermo Mccormick [employer]EMPLOYMENT SERVICES DIRECTOR Work Phone: [facility] 08-12-2022 18:29-0400 Diastolic blood pressure 78 mm[Hg] Guillermo Mccormick [employer]EMPLOYMENT SERVICES DIRECTOR Work Phone: [facility] 08-12-2022 18:29-0400 Heart rate 101 /min Guillermo Mccormick [employer]EMPLOYMENT SERVICES DIRECTOR Work Phone: [facility] 08-12-2022 18:29-0400 Respiratory rate 20 /min Guillermo Mccormick [employer]EMPLOYMENT SERVICES DIRECTOR Work Phone: [facility] 08-12-2022 18:29-0400 SaO2% (BldA) [Mass fraction] 99 % Guillermo Mccormick [employer]EMPLOYMENT SERVICES DIRECTOR Work Phone: [facility] 08-12-2022 18:29-0400 Systolic blood pressure 120 mm[Hg] Guillermo Mccormick [employer]EMPLOYMENT SERVICES DIRECTOR Work Phone: [facility] 08-11-2022 14:50-0400 Body height 165.1 cm Mathew Yang Jr., MD Work Phone: [facility] 08-11-2022 14:50-0400 Body weight 87.54 kg Mathew Yang Jr., MD Work Phone: [facility] 07-01-2022 18:02-0500 Body temperature 99.3 [degF] Krislyn Aberegg PA Work Phone: [facility] 07-01-2022 18:02-0500 Body weight 91.54 kg Krislyn Aberegg PA Work Phone: [facility] 07-01-2022 18:02-0500 Diastolic blood pressure 72 mm[Hg] Krislyn Aberegg PA Work Phone: [facility] 07-01-2022 18:02-0500 Heart rate 98 /min Krislyn Aberegg PA Work Phone: [facility] 07-01-2022 18:02-0500 Respiratory rate 18 /min Krislyn Aberegg PA Work Phone: [facility] 07-01-2022 18:02-0500 SaO2% (BldA) [Mass fraction] 98 % Krislyn Aberegg PA Work Phone: [facility] 07-01-2022 18:02-0500 Systolic blood pressure 114 mm[Hg] Krislyn Aberegg PA Work Phone: [facility] 06-22-2022 14:40-0500 Body weight 93.08 kg Priyanka Smith MD Work Phone: [facility] 06-22-2022 14:40-0500 Diastolic blood pressure 70 mm[Hg] Priyanka Smith MD Work Phone: [facility] 06-22-2022 14:40-0500 Heart rate 74 /min Priyanka Smtih MD Work Phone: [facility] 06-22-2022 14:40-0500 Respiratory rate 16 /min Priyanka Smith MD Work Phone: [facility] 06-22-2022 14:40-0500 Systolic blood pressure 118 mm[Hg] Priyanka Smith MD Work Phone: [facility] 05-22-2022 14:59-0500 Diastolic blood pressure 85 mm[Hg] Proc Shared Work Phone: [facility] 05-22-2022 14:59-0500 Systolic blood pressure 127 mm[Hg] Proc Shared Work Phone: [facility] 04-17-2022 14:33-0500 Body weight 92.53 kg Karen Alcantara MD Work Phone: [facility] 04-17-2022 14:33-0500 Diastolic blood pressure 72 mm[Hg] Karen Alcantara MD Work Phone: [facility] 04-17-2022 14:33-0500 Heart rate 86 /min Karen Alcantara MD Work Phone: [facility] 04-17-2022 14:33-0500 SaO2% (BldA) [Mass fraction] 99 % Karen Alcantara MD Work Phone: [facility] 04-17-2022 14:33-0500 Systolic blood pressure 133 mm[Hg] Karen Alcantara MD Work Phone: [facility] 04-02-2022 08:22-0500 Body temperature 97.59 [degF] Genie Olson APRN.EMPLOYMENT SERVICES DIRECTOR Work Phone: [facility] 04-02-2022 08:22-0500 Body weight 92.99 kg Genie Olson APRN.EMPLOYMENT SERVICES DIRECTOR Work Phone: [facility] 04-02-2022 08:22-0500 Diastolic blood pressure 72 mm[Hg] Genie Olson APRN.EMPLOYMENT SERVICES DIRECTOR Work Phone: [facility] 04-02-2022 08:22-0500 Heart rate 79 /min Genie Olson APRN.EMPLOYMENT SERVICES DIRECTOR Work Phone: [facility] 04-02-2022 08:22-0500 Respiratory rate 18 /min Genie Olson APRN.EMPLOYMENT SERVICES DIRECTOR Work Phone: [facility] 04-02-2022 08:22-0500 SaO2% (BldA) [Mass fraction] 99 % Genie Olson APRN.EMPLOYMENT SERVICES DIRECTOR Work Phone: [facility] 04-02-2022 08:22-0500 Systolic blood pressure 110 mm[Hg] Genie Olson APRN.EMPLOYMENT SERVICES DIRECTOR Work Phone: [facility] 03-16-2022 09:23-0400 Body weight 91.63 kg John Mg MD Work Phone: [facility] 03-16-2022 09:23-0400 Diastolic blood pressure 74 mm[Hg] John Mg MD Work Phone: [facility] 03-16-2022 09:23-0400 Systolic blood pressure 108 mm[Hg] John Mg MD Work Phone: [facility] 02-16-2022 09:36-0400 Body weight 89.36 kg Karen Alcantara MD Work Phone: [facility] 02-16-2022 09:36-0400 Diastolic blood pressure 62 mm[Hg] Karen Alcantara MD Work Phone: [facility] 02-16-2022 09:36-0400 Heart rate 78 /min Karen Alcantara MD Work Phone: [facility] 02-16-2022 09:36-0400 Respiratory rate 17 /min Karen Alcantara MD Work Phone: [facility] 02-16-2022 09:36-0400 SaO2% (BldA) [Mass fraction] 97 % Karen Alcantara MD Work Phone: [facility] 02-16-2022 09:36-0400 Systolic blood pressure 118 mm[Hg] Karen Alcantara MD Work Phone: [facility] 12-19-2021 09:18-0400 Body weight 85 kg Priyanka Smith MD Work Phone: [facility] 12-19-2021 09:18-0400 Diastolic blood pressure 68 mm[Hg] Priyanka Smith MD Work Phone: [facility] 12-19-2021 09:18-0400 Heart rate 78 /min Priyanka Smith MD Work Phone: [facility] 12-19-2021 09:18-0400 Respiratory rate 16 /min Priyanka Smith MD Work Phone: [facility] 12-19-2021 09:18-0400 Systolic blood pressure 110 mm[Hg] Priyanka Smith MD Work Phone: [facility] 11-26-2021 09:40-0400 Body height 166.4 cm Charis Lopez [employer] Work Phone: [facility] 11-26-2021 09:40-0400 Body weight 83.92 kg Charis Lopez [employer] Work Phone: [facility] 11-26-2021 09:40-0400 Diastolic blood pressure 64 mm[Hg] Charis Lopez [employer]CNM Work Phone: [facility] 11-26-2021 09:40-0400 Systolic blood pressure 108 mm[Hg] Charis Lopez [employer]CN[employer] Work Phone: [facility] 11-05-2021 09:30-0400 Body weight 82.1 kg Cleo Maynard APRN.CNM Work Phone: [facility] 11-05-2021 09:30-0400 Diastolic blood pressure 70 mm[Hg] Cleo Maynard APRN.CNM Work Phone: [facility] 11-05-2021 09:30-0400 Systolic blood pressure 112 mm[Hg] Cleo Maynard APRN.CNM Work Phone: [facility] 08-12-2021 13:46-0400 Body height 161.3 cm Gumaro Cuenca MD Work Phone: [facility] 08-12-2021 13:46-0400 Body weight 77.11 kg Gumaro Cuenca MD Work Phone: [facility] 08-12-2021 13:46-0400 Diastolic blood pressure 62 mm[Hg] Gumaro Cuenca MD Work Phone: [facility] 08-12-2021 13:46-0400 Heart rate 94 /min Gumaro Cuenca MD Work Phone: [facility] 08-12-2021 13:46-0400 SaO2% (BldA) [Mass fraction] 99 % Gumaro Cuenca MD Work Phone: [facility] 08-12-2021 13:46-0400 Systolic blood pressure 108 mm[Hg] Gumaro Cuenca MD Work Phone: [facility] 08-12-2021 13:41-0400 Body height 161.3 cm Respiratory Wstr Work Phone: [facility] 08-12-2021 13:41-0400 Body weight 77.11 kg Respiratory Wstr Work Phone: [facility] 08-12-2021 13:41-0400 Heart rate 94 /min Respiratory Wstr Work Phone: [facility] 08-12-2021 13:41-0400 Respiratory rate 14 /min Respiratory Wstr Work Phone: [facility] 08-12-2021 13:41-0400 SaO2% (BldA) [Mass fraction] 99 % Respiratory Wstr Work Phone: [facility] Encounters Encounter Date Encounter Type Care Provider Facility Start: 02-16-2025 ambulatory Gonzalo Rubio lity:[facility] Start: 01-10-2025 End: 01-10-2025 Patient encounter procedure Jasmyne Day MD Work Phone: [facility] Comment on above: Orthostatic hypotens ion (Primary Dx); Dizziness; Parkinson's disease, unspecified whether dyskinesia present, unspecified whether manifestations fluctuate (HCC) Start: 01-10-2025 End: 01-10-2025 ambulatory JASMYNE DAY Facility:[facility] Start: 01-09-2025 End: 01-09-2025 Patient encounter procedure Mathew Yang MD Work Phone: Urology Comment on above: Kidney stone (Primar y Dx) Start: 01-09-2025 End: 01-09-2025 ambulatory MATHEW YANG JR Facility:[facility] Start: 12-29-2024 End: 12-29-2024 Patient encounter procedure Hilary Soto [facility] Work Phone: Start: 12-29-2024 End: 12-29-[address] Priyanka Smith MD Work Phone: [facility] Gastroenterology Start: 12-29-2024 End: 12-29-2024 ambulatory Hilary Soto Facility:[facility] Start: 12-27-2024 End: 12-27-2024 Office outpatient visit 25 minutes Peyton Diaz APRN.EMPLOYMENT SERVICES DIRECTOR Work Phone: [facility] Comment on above: Orthostatic hypotens ion (Primary Dx); Parkinson's disease, unspecified whether dyskinesia present, unspecified whether manifestations fluctuate (HCC) Start: 12-27-2024 End: 12-27-2024 ambulatory PEYTON DIAZ Facility:[facility] Start: 12-22-2024 Non-patient / Non-visit Aditya Monet nd, DO -[facility] Start: 12-22-2024 End: 12-22-2024 Admission to same day surgery center Aditya Friend DO -Endoscopy Work Phone: Start: 12-22-2024 End: 12-22-[address] Priyanka Smith MD Work Phone: -Endoscopy Start: 12-20-2024 End: 12-20-2024 ambulatory MATHEW YANG Facility:[facility] Start: 12-13-2024 End: 12-13-2024 Patient encounter procedure Cyndi Niak [employer]EMPLOYMENT SERVICES DIRECTOR Work Phone: [facility] [place] Comment on above: Orthostatic hypotens ion (Primary Dx); Parkinson's disease, unspecified whether dyskinesia present, unspecified whether manifestations fluctuate (HCC) Start: 12-13-2024 End: 12-13-2024 ambulatory CYNDI MATTHEWSLOGWILI Facility:[facility] Start: 12-06-2024 End: 12-06-2024 Patient encounter procedure Charis Lopez [employer] Work Phone: OB/Gynecology Comment on above: Encounter for gyneco logical examination (general) (routine) without abnormal findings (Primary Dx); Encounter for screening for human papillomavirus (HPV); Pap smear for cervical cancer screening; Encounter for screening mammogram for breast cancer; Genital warts Start: 12-06-2024 End: 12-06-2024 Patient encounter status Charis Lopez [employer] Work Phone: [facility] Start: 12-06-2024 End: 12-06-2024 ambulatory CHARIS LOPEZ Facility:[facility] Start: 12-06-2024 Encounter for gynecological examination (general) (routine) without abnormal findings CHARIS LOPEZ [facility] Start: 11-29-2024 End: 11-29-2024 Patient encounter procedure Jasmyne Day MD Work Phone: [facility] [place] Comment on above: Parkinson's disease, unspecified whether dyskinesia present, unspecified whether manifestations fluctuate (HCC) (Primary Dx); Orthostatic hypotension; Stage 3 chronic kidney disease, unspecified whether stage 3a or 3b CKD (HCC) Start: 11-29-2024 End: 11-29-2024 ambulatory JASMYNE DAY Facility:[facility] Start: 11-16-2024 End: 11-16-2024 Patient encounter procedure Gemma Roberts APRN.EMPLOYMENT SERVICES DIRECTOR Work Phone: Neurology Comment on above: Constipation, unspec ified constipation type (Primary Dx); Parkinsonism, unspecified Parkinsonism type (HCC); REM sleep behavior disorder; Restless legs syndrome; Orthostatic hypotension Start: 11-16-2024 End: 11-16-2024 ambulatory GEMMA ROBERTS Facility:[facility] Start: 11-14-2024 End: 11-14-2024 Telephone encounter German Grubbs APRN.EMPLOYMENT SERVICES DIRECTOR Work Phone: URO/Gynecology Comment on above: Patient Question; Re fill Request Start: 11-09-2024 End: 11-14-2024 ambulatory German Grubbs [employer]EMPLOYMENT SERVICES DIRECTOR Work Phone: URO/Gynecology Comment on above: Atarax Start: 11-08-2024 End: 11-08-2024 Patient encounter procedure Hilary EASLEY [facility] Work Phone: Start: 11-08-2024 End: 11-08-[address] Priyanka Smith MD Work Phone: [facility] Work Phone: Start: 10-31-2024 End: 10-31-2024 Patient encounter procedure German Grubbs [employer]EMPLOYMENT SERVICES DIRECTOR Work Phone: URO/Gynecology Comment on above: Chronic interstitial cystitis (Primary Dx); Genitourinary syndrome of menopause Start: 10-31-2024 End: 10-31-2024 ambulatory Leandro Vargas PT Work Phone: [facility] Physical Therapy Comment on above: Fall in home, initia l encounter (Primary Dx); At high risk for falls Start: 10-26-2024 End: 10-26-2024 Patient encounter procedure Pulm Lab [facility] Work Phone: PULM LAB [facility] Comment on above: Interstitial pulmona ry disease (HCC) (Primary Dx); NSIP (nonspecific interstitial pneumonia) (HCC); Bronchiectasis without complication (HCC); Stage 3b chronic kidney disease (HCC); On Cellcept therapy Start: 10-26-2024 End: 10-26-2024 ambulatory Pulm Lab [facility] Work Phone: P[facility] Comment on above: Spirometry Start: 10-17-2024 End: 10-17-2024 ambulatory Eufemia Anglin PT, DPT [facility] Comment on above: Fall in home, initia l encounter (Primary Dx); At high risk for falls Refill Request Start: 10-16-2024 End: 10-17-2024 ambulatory Bogdan Roberts MD Work Phone: Neurology Comment on above: Sinemet & Carbidopa Start: 10-11-2024 End: 10-11-2024 Patient encounter procedure Hilary EASLEY -[facility] Work Phone: Start: 10-11-2024 End: 10-11-[address] Priyanka Smith MD Work Phone: [facility] Work Phone: Start: 10-10-2024 End: 10-10-2024 ambulatory Leandro Vargas PT Work Phone: [facility] Comment on above: At high risk for fal ls (Primary Dx) Start: 10-02-2024 End: 10-02-2024 ambulatory Leandro Vargas PT Work Phone: [facility] Comment on above: At high risk for fal ls (Primary Dx) Start: 09-28-2024 End: 09-28-2024 ambulatory PEPITO STEVE Facility:[facility] Start: 09-28-2024 End: 09-28-2024 ambulatory Leandro Vargas PT Work Phone: [facility] Physical [facility] Comment on above: Fall in home, initia l encounter (Primary Dx); At high risk for falls; Overactive bladder Start: 09-26-2024 End: 11-26-2024 Follow-up encounter Becca Mir APRN.EMPLOYMENT SERVICES DIRECTOR Work Phone: Pulmonary Medicine Start: 09-23-2024 End: 09-23-2024 ambulatory BECCA MIR Facility:[facility] Start: 09-22-2024 End: 09-22-2024 Office outpatient visit 40 minutes Rika Adam APRN.EMPLOYMENT SERVICES DIRECTOR Work Phone: Neurology Comment on above: Parkinsonism, unspec ified Parkinsonism type (HCC) (Primary Dx); Nausea Start: 09-22-2024 End: 09-22-2024 ambulatory RIKA ADAM Facility:[facility] Start: 09-20-2024 End: 09-22-2024 Refill Becca Mir APRN.EMPLOYMENT SERVICES DIRECTOR Work Phone: Pulmonary Medicine Comment on above: Refill Request Start: 09-11-2024 End: 09-11-2024 Follow-up encounter Jasmyne Day MD Work Phone: Family Medicine [place] Comment on above: Results Start: 09-11-2024 ambulatory JASMYNE DAY Facility:[facility] Start: 09-11-2024 End: 09-11-2024 Subsequent hospital visit by physician Xr [facility] [employer] Work Phone: Radiology Comment on above: Fall in home, initia l encounter [W19.XXXA, Y92.009] Start: 09-11-2024 End: 09-11-2024 Patient encounter procedure Jasmyne Day MD Work Phone: [facility] [place] Comment on above: Fall in home, initia l encounter (Primary Dx); Acute right-sided low back pain without sciatica; Acute hip pain, right; Injury of head, initial encounter; Orbital pain, left; At high risk for falls Start: 09-11-2024 End: 09-11-2024 ambulatory JASMYNE DAY Facility:[facility] Start: 09-01-2024 End: 09-01-2024 Follow-up encounter Juwan Land APRN.EMPLOYMENT SERVICES DIRECTOR Work Phone: Family Medicine [employer] Comment on above: Results Start: 08-31-2024 End: 08-31-2024 Office outpatient visit 25 minutes Priyanka Smith MD Work Phone: Family Medicine [employer] Comment on above: Syncope, unspecified syncope type (Primary Dx); Hypothyroidism, unspecified type Start: 08-31-2024 End: 08-31-2024 ambulatory PRIYANKA WHITTINGTONJOSELYN Facility:[facility] Start: 08-31-2024 End: 08-31-2024 Patient encounter procedure Latha Cuevas MD Work Phone: Endocrinology Comment on above: Lightheadedness (Karyn michele Dx) Start: 08-31-2024 End: 08-31-2024 ambulatory LATHA CUEVAS Facility:[facility] Start: 08-22-2024 End: 10-22-2024 Follow-up encounter Candy Santana APRN.EMPLOYMENT SERVICES DIRECTOR Work Phone: OB/Gynecology Start: 08-21-2024 End: 08-21-2024 ambulatory CHARIS LOPEZ Facility:[facility] Start: 08-21-2024 End: 08-21-2024 Subsequent hospital visit by physician Screen Mammo [facility] Mammogram Comment on above: Encounter for screen ing mammogram for breast cancer [Z12.31] Start: 08-18-2024 End: 10-18-2024 Follow-up encounter Maira Chen APRN.EMPLOYMENT SERVICES DIRECTOR Work Phone: Urology Start: 08-18-2024 End: 08-18-2024 Telephone encounter Maira Chen APRN.EMPLOYMENT SERVICES DIRECTOR Work Phone: Urology Comment on above: Results Start: 08-17-2024 End: 08-17-2024 ambulatory MAIRA CHEN Facility:[facility] Start: 08-17-2024 End: 10-17-2024 Follow-up encounter Maira Chen [employer]EMPLOYMENT SERVICES DIRECTOR Work Phone: Urology [facility] Start: 08-15-2024 End: 08-16-2024 ambulatory Bogdan Roberts MD Work Phone: Neurology Comment on above: Sinemet Start: 08-14-2024 End: 08-14-2024 ambulatory MAIRA CHEN Facility:[facility] Start: 08-14-2024 End: 08-14-2024 Subsequent hospital visit by physician [facility] [employer] [facility] Work Phone: Radiology Comment on above: Gross hematuria [R31 .0] Start: 08-11-2024 End: 08-11-2024 Follow-up encounter Maira Chen APRN.EMPLOYMENT SERVICES DIRECTOR Work Phone: Urology Start: 08-09-2024 End: 08-09-2024 ambulatory MATHEW YANG Facility:[facility] Start: 08-09-2024 End: 08-09-2024 Office outpatient visit 15 minutes Maira Chen APRN.EMPLOYMENT SERVICES DIRECTOR Work Phone: Urology Comment on above: Gross hematuria (Karyn michele Dx); Nephrolithiasis Start: 08-08-2024 End: 08-08-2024 Telephone encounter Priyanka Smith MD Work Phone: [facility] [place] Start: 08-07-2024 End: 08-07-2024 Telephone encounter Wiley Benitez MD Work Phone: [facility] Start: 08-04-2024 End: 08-04-2024 Telemedicine consultation with patient German Grubbs APRN.EMPLOYMENT SERVICES DIRECTOR Work Phone: URO/Gynecology Start: 08-04-2024 End: 08-17-2024 ambulatory German Grubbs APRN.EMPLOYMENT SERVICES DIRECTOR Work Phone: URO/Gynecology Comment on above: Chronic interstitial cystitis (Primary Dx); Gross hematuria Bleeding Start: 08-03-2024 End: 08-03-2024 ambulatory BOGDAN ROBERTS Facility:[facility] Start: 08-03-2024 End: 08-03-2024 Office outpatient visit 25 minutes Bogdan Roberts MD Work Phone: Neurology Comment on above: Parkinsonism, unspec ified Parkinsonism type (HCC) (Primary Dx); Neuroleptic-induced tardive dyskinesia; Stage 3b chronic kidney disease (HCC) Start: 08-01-2024 End: 08-08-2024 Follow-up encounter Juwan Land APRN.EMPLOYMENT SERVICES DIRECTOR Work Phone: [facility] [employer] Start: 07-31-2024 End: 07-31-2024 ambulatory Priyanka Smith MD Work Phone: Family [facility] [place] Comment on above: Bilateral arm pain Start: 07-31-2024 End: 07-31-2024 Office outpatient visit 25 minutes Juwan Land APRN.CNP Work Phone: [facility] [place] Comment on above: Myalgia (Primary Dx) ; Costochondritis; Pain in both upper arms; Orthostatic hypotension Start: 07-19-2024 End: 07-19-2024 ambulatory PEPITO STEVE Facility:[facility] Start: 07-10-2024 End: 07-10-2024 Patient encounter procedure Jacqueline Valadez APRN.EMPLOYMENT SERVICES DIRECTOR Work Phone: [facility] [place] Comment on above: Medicare annual well ness visit, subsequent (Primary Dx); Hypothyroidism, unspecified type; Stage 3a chronic kidney disease (HCC); History of tremor; Post-menopausal Start: 07-10-2024 End: 07-10-2024 ambulatory JACQUELINE VALADEZ Facility:[facility] Start: 07-07-2024 End: 07-07-2024 Patient encounter procedure Hilary Soto [facility] Gastroenterology Work Phone: Start: 07-07-2024 End: 07-07-2024 ambulatory Priyanka Smith Facility:[facility] Start: 07-04-2024 End: 07-04-2024 ambulatory PRIYANKA SMITH Facility:[facility] Start: 06-26-2024 End: 06-26-2024 Patient encounter procedure Raul Juan MD Work Phone: Orthopaedics Comment on above: Pain of right thumb (Primary Dx) Start: 06-26-2024 End: 06-26-2024 ambulatory RAUL JUAN Facility:[facility] Start: 06-26-2024 End: 06-26-2024 Subsequent hospital visit by physician Griselda [facility] [place] Jasmine Work Phone: Radiology Comment on above: Right hand pain [M79 .641] Start: 06-20-2024 End: 06-20-2024 E-mail encounter from caregiver Becca Mir APRN.CNP Work Phone: Pulmonary Medicine Start: 06-20-2024 End: 06-20-2024 ambulatory Becca Mir APRN.CNP Work Phone: Pulmonary Medicine Comment on above: update Refill Request Start: 06-20-2024 End: 06-20-2024 Office outpatient visit 15 minutes Becca Mir APRN.EMPLOYMENT SERVICES DIRECTOR Work Phone: Pulmonary Medicine Comment on above: NSIP (nonspecific in terstitial pneumonitis) ([facility]) (Primary Dx); 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; CKD stage 3b, GFR 30-44 ml/min (HCC) Start: 06-14-2024 End: 06-14-2024 Orders Only Raul Juan MD Work Phone: Orthopaedics Comment on above: Right hand pain (Karyn michele Dx) Start: 06-12-2024 End: 06-12-2024 ambulatory KAREN ALCANTARA Facility:[facility] Start: 06-12-2024 End: 06-12-2024 Subsequent hospital visit by physician [facility] (I-Stat) Work Phone: Cat Scan Comment on above: 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) ([facility]) [J84.89] Start: 06-09-2024 End: 06-09-2024 ambulatory Wiley Benitez MD Work Phone: URO/Gynecology Comment on above: Chronic interstitial cystitis (Primary Dx) Start: 06-09-2024 End: 06-09-2024 Telemedicine consultation with patient Wiley Benitez MD Work Phone: URO/Gynecology Start: 06-06-2024 ambulatory Priyanka Smith Facilit y:[facility] Start: 06-06-2024 End: 06-06-2024 ambulatory Priyanka Smith Facility:[facility] Start: 05-31-2024 End: 05-31-2024 Telephone encounter Jacqueline Valadez APRN.CNP Work Phone: Family Medicine [employer] Comment on above: Results (Knee Xray ) Start: 05-30-2024 End: 05-30-2024 ambulatory GEMMA ROBERTS Facility:[facility] Start: 05-30-2024 End: 05-30-2024 Patient encounter procedure Gemma Roberts [employer]EMPLOYMENT SERVICES DIRECTOR Work Phone: Neurology Comment on above: Parkinsonism, unspec ified Parkinsonism type (HCC) (Primary Dx); Dyskinesia, tardive Start: 05-26-2024 End: 05-26-2024 ambulatory PRIYANKA KRUEGEROSWEGO Facility:[facility] Start: 05-24-2024 End: 05-24-2024 ambulatory [facility] Facility:[facility] Start: 05-24-2024 End: 05-24-2024 Subsequent hospital visit by physician Griselda [facility] [place] Work Phone: Radiology Comment on above: Acute pain of both k nees [M25.561, M25.562] Start: 05-24-2024 End: 05-24-2024 Patient encounter procedure Jacqueline Valadez APRN.EMPLOYMENT SERVICES DIRECTOR Work Phone: [facility] Medicine [place] Comment on above: Acute pain of both k nees (Primary Dx) Start: 05-24-2024 End: 05-24-2024 ambulatory JACQUELINESHOAIB [facility] Facility:[facility] Start: 05-23-2024 End: 05-23-2024 ambulatory Lab/[place] [facility] Work Phone: Hematology/Oncology Comment on above: Stage 3a chronic kid ermias disease (HCC) (Primary Dx) Start: 05-22-2024 End: 05-23-2024 Refill Karen Alcantara MD Work Phone: Pulmonary Medicine Comment on above: Refill Request Amitriptyline Start: 05-18-2024 End: 05-18-2024 ambulatory LATHA CUEVAS Facility:[facility] Start: 05-18-2024 End: 05-18-2024 Patient encounter procedure Latha Cuevas MD Work Phone: Endocrinology Comment on above: ACTH elevation (Prim abilio Dx) Start: 05-11-2024 End: 05-11-2024 ambulatory LATHA CUEVAS Facility:[facility] Start: 05-05-2024 End: 05-05-2024 ambulatory LATHA CUEVAS Facility:[facility] Start: 05-05-2024 End: 05-05-2024 Patient encounter procedure Latha Cuevas MD Work Phone: Endocrinology Comment on above: 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); assisted systemic 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 Start: 04-17-2024 End: 04-17-2024 Telemedicine consultation with patient Wiley Benitez MD Work Phone: URO/Gynecology Start: 04-17-2024 End: 04-17-2024 ambulatory Wiley Benitez MD Work Phone: URO/Gynecology Comment on above: Chronic interstitial cystitis (Primary Dx) Start: 04-17-2024 End: 04-17-2024 ambulatory KAREN ALCANTARA Facility:[facility] Start: 04-17-2024 End: 04-17-2024 Patient encounter procedure Karen Alcantara MD Work Phone: Pulmonary Medicine Comment on above: 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); High risk medication use; Nephrolithiasis; CKD (chronic kidney disease) stage 4, GFR 15-29 ml/min ([facility]) Start: 04-14-2024 End: 04-14-2024 Telephone encounter Jonathan Monterroso APRN.EMPLOYMENT SERVICES DIRECTOR Work Phone: Family Medicine [employer] Comment on above: Results Start: 04-10-2024 End: 04-10-2024 Patient encounter procedure Jonathan Monterroso APRN.EMPLOYMENT SERVICES DIRECTOR Work Phone: Family Medicine [place] Comment on above: Urinary tract infect ion with hematuria, site unspecified (Primary Dx) Start: 04-10-2024 End: 04-10-2024 ambulatory JONATHAN MONTERROSO Facility:[facility] Start: 04-10-2024 End: 04-10-2024 Telephone encounter Priyanka Smith MD Work Phone: Family Medicine [place] Comment on above: Appointment; Patient Update Start: 04-07-2024 End: 04-07-2024 Patient encounter procedure Phong Blake MD Work Phone: [facility] Urology - [place] Comment on above: Calculus, ureter [N2 0.1] (Primary Dx) Start: 04-07-2024 End: 04-07-2024 ambulatory [facility] Start: 2024 End: 2024 ambulatory Priyanka [facility] Facility:[facility] Start: 04-05-2024 End: 04-05-2024 ambulatory PRIYANKA SMITH Facility:[facility] Start: 04-03-2024 End: 2024 Telephone encounter Aishwarya Fraire MD Work Phone: [facility] Comment on above: Forms/questionnaires Start: 03-24-2024 End: 03-27-2024 Telephone encounter Phnog Blake MD Work Phone: [facility] Comment on above: Appointment Start: 03-23-2024 End: 03-23-2024 ambulatory [facility] Start: 03-23-2024 End: 03-23-2024 Subsequent hospital visit by physician Katherine Bowen MD Work Phone: [facility] Comment on above: Hydronephrosis with urinary obstruction due to ureteral calculus (Primary Dx) Start: 03-22-2024 End: 11-30-2024 Telephone encounter Priyanka Smith MD Work Phone: Family Medicine [place] Comment on above: Consult Start: 03-21-2024 End: 03-21-2024 Telephone encounter Gemma Roberts APRN.EMPLOYMENT SERVICES DIRECTOR Work Phone: [facility]rological [facility] Comment on above: Forms (Skin Biopsy - [employer]) Start: 03-17-2024 End: 03-17-2024 ambulatory Karen Alcantara MD Work Phone: Pulmonary Medicine Comment on above: Prednisone Start: 03-16-2024 End: 03-16-2024 Patient encounter procedure Priyanka Smith MD Work Phone: Family Medicine [place] Comment on above: Hospital discharge f ollow-up (Primary Dx); Need for vaccination; Kidney infection; Orthostatic hypotension; Acquired hypothyroidism; ILD (interstitial lung disease) (HCC) Start: 03-16-2024 End: 03-16-2024 ambulatory [facility] Facility:[facility] Start: 03-16-2024 End: 03-16-2024 Office outpatient visit 40 minutes Gemma Roberts APRN.EMPLOYMENT SERVICES DIRECTOR Work Phone: Neurology Comment on above: Parkinsonism, unspec ified Parkinsonism type (HCC) (Primary Dx); Dyskinesia, tardive Start: 03-15-2024 End: 03-16-2024 Telephone encounter Katherine Bowen MD Work Phone: [facility] Clinical Communication Comment on above: Procedure Start: 03-07-2024 End: 03-07-2024 Telephone encounter Cecilia Barney PA-C Work Phone: [facility] Gastroenterology - [place] Comment on above: Hospital Follow-up Start: 03-06-2024 End: 03-06-2024 Telephone encounter Cecilia Barney PA-C Work Phone: [facility]enterology - [place] Start: 03-06-2024 End: 03-06-2024 ambulatory [facility] Start: 03-04-2024 End: 03-09-2024 Evaluation and management of inpatient Noel Contreras MD Work Phone: [facility] Surgical Progressive Care Unit PCU H6 Comment on above: Pyelonephritis (Prim abilio Dx); Syncope and collapse; Hydronephrosis with urinary obstruction due to ureteral calculus; Esophageal dysmotility Start: 03-03-2024 End: 03-04-2024 Emergency department patient visit [facility] Facility:[facility] Start: 03-03-2024 End: 03-03-2024 Subsequent hospital visit by physician Xr [facility] Work Phone: Radiology Comment on above: Rib pain [R07.81] Start: 03-03-2024 End: 03-28-2024 ambulatory Jacqueline Valadez APRN.EMPLOYMENT SERVICES DIRECTOR Work Phone: Family Medicine [employer] Comment on above: Blood pressure Start: 03-03-2024 End: 03-03-2024 Patient encounter procedure Wiley Benitez MD Work Phone: URO/Gynecology Comment on above: Chronic interstitial cystitis (Primary Dx); Dizziness Start: 03-01-2024 End: 03-01-2024 Patient encounter procedure Jacqueline Valadez APRN.EMPLOYMENT SERVICES DIRECTOR Work Phone: Family [facility] [place] Comment on above: Fall, initial encoun ter (Primary Dx); Hypotension, unspecified hypotension type; Rib pain Start: 03-01-2024 End: 03-03-2024 ambulatory Bogdan Roberts MD Work Phone: Neurology Comment on above: Reglan Start: 02-02-2024 End: 02-02-2024 Telephone encounter Jacqueline Valadez APRN.EMPLOYMENT SERVICES DIRECTOR Work Phone: [facility] [employer] Comment on above: Results (Labs ) Start: 02-01-2024 End: 02-01-2024 Refill Karen Alcantara MD Work Phone: Pulmonary Medicine Comment on above: Refill Request Start: 01-31-2024 End: 01-31-2024 ambulatory Wiley Benitez MD Work Phone: URO/Gynecology Comment on above: Amitriptyline Start: 01-13-2024 End: 01-13-2024 ambulatory BOGDAN ROBERTS Facility:[facility] Start: 01-13-2024 End: 01-13-2024 Office outpatient new 45 minutes Bogdan Roberts MD Work Phone: Neurology Comment on above: Tremor (Primary Dx); Dyskinesia, tardive; Drug-induced parkinsonism (HCC) Start: 01-11-2024 End: 01-11-2024 Patient encounter procedure Wiley Benitez MD Work Phone: URO/Gynecology Comment on above: Chronic interstitial cystitis (Primary Dx) Start: 12-28-2023 End: 12-28-2023 Patient encounter procedure Jacqueline Valadez APRN.EMPLOYMENT SERVICES DIRECTOR Work Phone: [facility] [place] Comment on above: Tremor (Primary Dx); Hypothyroidism, unspecified type; Low sodium levels; ILD (interstitial lung disease) (HCC); Stage 3a chronic kidney disease (HCC); Function kidney decreased; Elevated glucose; Obesity, Class I, BMI 30-34.9; Screening for depression; Encounter for screening examination for other mental health and behavioral disorders Start: 12-21-2023 End: 12-21-2023 Patient encounter procedure Mathew Yang MD Work Phone: Urology Comment on above: Kidney stone (Primar y Dx) Start: 12-01-2023 End: 12-01-2023 Patient encounter procedure Wiley Benitez MD Work Phone: BAG FILLER MACHINE OPERATOR [facility] Comment on above: Overactive bladder ( Primary Dx); Urinary frequency Start: 11-29-2023 End: 11-29-2023 Patient encounter procedure Charis Lopez APRN.CNJavier Work Phone: OB/Gynecology Comment on above: Encounter for gyneco logical examination (general) (routine) without abnormal findings (Primary Dx); Pap smear for cervical cancer screening; Encounter for screening mammogram for breast cancer Start: 11-29-2023 End: 11-29-2023 Patient encounter status Charis Lopez [employer].CNM Work Phone: [facility] Start: 11-29-2023 End: 11-29-2023 Subsequent hospital visit by physician Xr [facility] [place] Work Phone: Radiology Comment on above: Kidney stone [N20.0] Start: 11-22-2023 Telephone encounter Mathew Yang MD Work Phone: [place] PROVIDER ADULT Comment on above: Appointment Start: 11-22-2023 End: 11-22-2023 ambulatory MATHEW YANG JR Facility:[facility] Start: 11-12-2023 Telephone encounter Wiley Benitez MD Work Phone: BAG FILLER MACHINE OPERATOR [facility] Comment on above: Certified Pathology Assistant - O ther Start: 11-10-2023 Telephone encounter Wiley Benitez MD Work Phone: [facility] Comment on above: Insurance Authorizat ion (Prior Auth Denied: Appeal Requested) Start: 11-09-2023 End: 11-09-2023 Patient encounter procedure Mathew Yang MD Work Phone: Urology Comment on above: Kidney stone (Primar y Dx) Start: 11-04-2023 End: 11-04-2023 Subsequent hospital visit by physician Xr [facility] [employer] Work Phone: Radiology Comment on above: Kidney stone [N20.0] Start: 11-02-2023 Telephone encounter Wiley Benitez MD Work Phone: [facility] Comment on above: Insurance Authorizat ion (Prior Auth Delayed Additional Information Needed Requested) Start: 11-02-2023 End: 11-02-2023 Subsequent hospital visit by physician [facility] (I-Stat) Work Phone: Cat Scan Start: 10-20-2023 Telephone encounter Wiley Benitez MD Work Phone: BAG FILLER MACHINE OPERATOR [facility] Comment on above: Care Coordination (B otox) Start: 10-14-2023 ambulatory Jacqueline Valadez APRN.EMPLOYMENT SERVICES DIRECTOR Work Phone: [facility] [place] Start: 10-14-2023 End: 10-14-2023 Patient encounter procedure Jacqueline Valadez APRN.EMPLOYMENT SERVICES DIRECTOR Work Phone: Family [facility] Comment on above: Tremor (Primary Dx) Consult to Dr Miller Start: 10-07-2023 End: 10-07-2023 Patient encounter procedure Tariq Brooks APRN.EMPLOYMENT SERVICES DIRECTOR Work Phone (unformatted): [phone] BAG FILLER MACHINE OPERATOR [facility] Comment on above: Overactive bladder ( Primary Dx); Vulvar burning; Vaginal atrophy Start: 09-16-2023 End: 09-16-2023 Patient encounter procedure Karen Alcantara MD Work Phone: Pulmonary Medicine Comment on above: NSIP (nonspecific in terstitial pneumonitis) (HCC) (Primary Dx); Current chronic use of systemic steroids; assisted current use of immunosuppressive drug Start: 09-09-2023 E-mail encounter fro m caregiver Tariq Brooks APRN.EMPLOYMENT SERVICES DIRECTOR Work Phone (unformatted): [phone] BAG FILLER MACHINE OPERATOR [facility] Start: 09-09-2023 Follow-up encounter Tariq Wood surindersabrina [employer].EMPLOYMENT SERVICES DIRECTOR Work Phone (unformatted): [phone] BAG FILLER MACHINE OPERATOR [facility] Comment on above: Follow Up Start: 09-09-2023 End: 09-09-2023 ambulatory aTriq Brooks [employer].EMPLOYMENT SERVICES DIRECTOR Work Phone (unformatted): [phone] BAG FILLER MACHINE OPERATOR [facility] Comment on above: Urinary frequency (P rimary Dx); Vaginal burning Start: 09-09-2023 End: 09-09-2023 Telemedicine consultation with patient Tariq Brooks APRN.EMPLOYMENT SERVICES DIRECTOR Work Phone (unformatted): [phone] BAG FILLER MACHINE OPERATOR [facility] Start: 09-02-2023 End: 09-02-2023 Patient encounter procedure Tariq Brooks [employer].EMPLOYMENT SERVICES DIRECTOR Work Phone (unformatted): [phone] BAG FILLER MACHINE OPERATOR [facility] Comment on above: Overactive bladder ( Primary Dx); Urinary frequency; Dysuria; Neurostimulator device in situ Start: 09-01-2023 Refill Charis oro APRN.CNM Work Phone: OB/Gynecology Comment on above: Refill Request Start: 08-19-2023 Documentation procedure Mammog ruthie Coordinator [facility] Start: 08-19-2023 Letter encounter Mammography Coordinator [facility] Department Start: 08-18-2023 End: 08-18-2023 Subsequent hospital visit by physician Screen Mammo [facility] Mammogram Comment on above: Encounter for screen ing mammogram for malignant neoplasm of breast [Z12.31] Start: 08-09-2023 ambulatory Tariq Brooks [employer].EMPLOYMENT SERVICES DIRECTOR Work Phone (unformatted): [phone] BAG FILLER MACHINE OPERATOR [facility] Comment on above: Interstim Refill Request Start: 08-06-2023 Telephone encounter Charis talbot APRN.CNM Work Phone: OB/Gynecology Comment on above: Orders (Mammogram) Start: 06-22-2023 End: 06-22-2023 Patient encounter procedure Priyanka Smith MD Work Phone: [facility] Comment on above: Medicare annual well ness visit, initial (Primary Dx); Hypothyroidism, unspecified type; ILD (interstitial lung disease) (HCC); Low sodium levels; OAB (overactive bladder); Encounter for screening mammogram for malignant neoplasm of breast; Stage 3a chronic kidney disease (HCC); Obesity, Class I, BMI 30-34.9 Start: 03-09-2023 E-mail encounter sallie huitron caregiver Tariq Brooks HAILE.EMPLOYMENT SERVICES DIRECTOR Work Phone (unformatted): [phone] [facility] [place] [facility] Start: 03-09-2023 Follow-up encounter Tariq Israel beverly [employer].EMPLOYMENT SERVICES DIRECTOR Work Phone (unformatted): [phone] Urogynecology Comment on above: Follow Up Start: 03-01-2023 End: 03-01-2023 Nursing evaluation of patient and report Mi Nurse Work Phone: [facility] Comment on above: Need for vaccination (Primary Dx) Start: 02-25-2023 End: 02-25-2023 Patient encounter procedure Tariq Brooks HAILE.EMPLOYMENT SERVICES DIRECTOR Work Phone (unformatted): [phone] BAG FILLER MACHINE OPERATOR [facility] Comment on above: Post-operative state (Primary Dx); Urinary frequency Start: 02-24-2023 End: 02-24-2023 ambulatory Immunization [facility] Nurse [facility] Work Phone: [facility] Start: 02-08-2023 Refill Karen Alcantara MD Work Phone: Pulmonary Medicine Comment on above: Refill Request Start: 01-28-2023 End: 01-28-2023 ambulatory [facility] Facility:[facility] Start: 01-15-2023 End: 01-15-2023 Patient encounter procedure John Mg MD Work Phone: BAG FILLER MACHINE OPERATOR [facility] Comment on above: Preoperative examina tion (Primary Dx); OAB (overactive bladder); Urge urinary incontinence; Urinary frequency; Urinary urgency Start: 01-15-2023 End: 01-15-2023 Preprocedural examination done John Mg MD Work Phone: [facility] Start: 01-12-2023 End: 01-12-2023 ambulatory PRIYANKA SMITH Facility:[facility] Start: 01-12-2023 Encounter for other preprocedural examination MATHEW YANG JR [facility] Start: 01-12-2023 End: 01-12-2023 Admission to establishment [place] [address] Work Phone: [facility] Start: 01-12-2023 End: 01-12-2023 ambulatory [place] [address] Work Phone: Pre Anesthesia Comment on above: Preoperative examina tion (Primary Dx); NSIP (nonspecific interstitial pneumonitis) (HCC); Esophageal dysmotility; Acquired hypothyroidism; Thymoma, malignant (HCC); Current chronic use of systemic steroids; Stage 3a chronic kidney disease (HCC) Start: 01-12-2023 End: 01-12-2023 Preprocedural examination done [place] [address] Work Phone: [facility] Work Phone: Start: 01-02-2023 ambulatory John swenson MD Work Phone: BAG FILLER MACHINE OPERATOR [facility] Comment on above: Metronidazole sympto m diary Start: 12-22-2022 End: 12-22-2022 Patient encounter procedure Priyanka Simth MD Work Phone: [facility] [place] Comment on above: Hypothyroidism, unsp ecified type (Primary Dx); Brad esophagitis (HCC); Epigastric pain; Esophageal dysmotility; ILD (interstitial lung disease) ([facility]); OAB (overactive bladder); Low sodium levels; 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); Thymoma, malignant (HCC) Start: 11-25-2022 Refill Priyanka rausch MD Work Phone: [facility] [employer] Comment on above: Refill Request Start: 11-16-2022 End: 11-16-2022 ambulatory Pulm Lab [facility] Work Phone: [facility] Comment on above: Spirometry Start: 11-16-2022 End: 11-16-2022 Patient encounter procedure Pulm Lab [facility] Work Phone: [facility] Start: 11-06-2022 Orders Only John swenson [...] 10-27-2022 Subsequent hospital visit by physician [facility] (I-Stat) Work Phone: Cat Scan Comment on above: 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) ([facility]) [J84.89] Start: 10-15-2022 Telephone encounter Mathew Yang MD Work Phone: [facility] Comment on above: Appointment Start: 10-15-2022 ambulatory PRIYANKA SMITH [facility] ity:[facility] Start: 10-15-2022 End: 10-15-2022 Subsequent hospital visit by physician [facility] 1 Work Phone: Molecular Imaging Comment on above: Hydronephrosis with ureteropelvic junction (UPJ) obstruction [Q62.11] Start: 10-13-2022 End: 10-13-2022 ambulatory Lala Ruiz APRN.EMPLOYMENT SERVICES DIRECTOR Work Phone: URO/Gynecology Comment on above: Nocturia (Primary Dx ); Urinary frequency; OAB (overactive bladder) Start: 10-13-2022 End: 10-13-2022 Telemedicine consultation with patient Lala Ruiz APRN.EMPLOYMENT SERVICES DIRECTOR Work Phone: [facility] Start: 09-16-2022 End: 09-16-2022 Nursing evaluation of patient and report Uro Crm Coordinator Nurse [place] Work Phone: BAG FILLER MACHINE OPERATOR [facility] Comment on above: OAB (overactive blad jeanette) (Primary Dx) Start: 08-20-2022 End: 08-20-2022 Patient encounter procedure Priyanka Smith MD Work Phone: Family Medicine [employer] Comment on above: Bronchitis (Primary Dx); ILD (interstitial lung disease) (HCC); Subacute cough Start: 08-19-2022 Refill Karen Alcantara MD Work Phone: Pulmonary Medicine Comment on above: Refill Request Start: 08-12-2022 End: 08-12-2022 Subsequent hospital visit by physician Griselda [facility] [employer] Work Phone: Radiology Comment on above: Acute cough [R05.1] Start: 08-12-2022 End: 08-12-2022 Office outpatient visit 25 minutes Guillermo Mccormick APRN.EMPLOYMENT SERVICES DIRECTOR Work Phone: [facility] Comment on above: Acute cough (Primary Dx); Sinobronchitis Start: 08-12-2022 Telephone encounter Guillermo silverman APRN.EMPLOYMENT SERVICES DIRECTOR Work Phone: [employer] [facility] Comment on above: Results Start: 08-11-2022 ambulatory MATHEW CHERRY JR Facility:[facility] Start: 08-11-2022 End: 08-11-2022 Subsequent hospital visit by physician [facility] Work Phone: Radiology Comment on above: Kidney stone [N20.0] Start: 08-11-2022 End: 08-11-2022 Patient encounter procedure Mathew Yang MD Work Phone: Urology Comment on above: Kidney stone (Primar y Dx); 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; Hydronephrosis with ureteropelvic junction (UPJ) obstruction Start: 07-24-2022 Documentation procedure Mammog ruthie Coordinator [facility] Start: 07-24-2022 Letter encounter Mammography Coordinator [facility] Department Start: 07-23-2022 End: 07-23-2022 Subsequent hospital visit by physician Screen Mammo [facility] Mammogram Comment on above: Encounter for screen ing mammogram for breast cancer [Z12.31] Start: 07-01-2022 End: 07-01-2022 Patient encounter procedure Brandi EASLEY Work Phone: [facility] Comment on above: Sore throat (Primary Dx); Fever, unspecified fever cause Start: 06-22-2022 End: 06-22-2022 Patient encounter procedure Priyanka Smith MD Work Phone: [facility] [employer] Comment on above: Acquired hypothyroid ism (Primary Dx); Brad infection; Need for vaccination; ILD (interstitial lung disease) ([facility]) Start: 06-17-2022 Manual pelvic examination Vic Mg MD Work Phone: Urogynecology Comment on above: Acquired hydronephro sis with ureteropelvic junction (UPJ) obstruction (Primary Dx) Start: 06-12-2022 Refill Priyanka rausch MD Work Phone: [facility] [employer] Comment on above: Refill Request Start: 06-09-2022 End: 06-09-2022 Subsequent hospital visit by physician [facility] (I-Stat) Work Phone: Cat Scan Comment on above: Gross hematuria [R31 .0] Start: 05-29-2022 Telephone encounter John hansen MD Work Phone: BAG FILLER MACHINE OPERATOR [facility] Comment on above: Future Appointment ( Cystoscopy possible Botox) Start: 05-26-2022 Telephone encounter German rodriguez APRN.EMPLOYMENT SERVICES DIRECTOR Work Phone: Urogynecology Comment on above: Results Start: 05-22-2022 End: 05-22-2022 ambulatory Proc Shared Work Phone: BAG FILLER MACHINE OPERATOR [facility] Start: 05-22-2022 End: 05-22-2022 Patient encounter procedure Proc Rm Owens Shared Work Phone: [facility] Start: 04-21-2022 Refill Madelyn Franklin DO Work Phone: Gastroenterology Comment on above: Refill Request (Nyst atin) Start: 04-17-2022 End: 04-17-2022 Patient encounter procedure Karen Seema Brown MD Work Phone: Pulmonary Medicine Comment on above: 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); High risk medication use Start: 04-11-2022 Refill Karen Alcantara MD Work Phone: Pulmonary Medicine Comment on above: Refill Request Start: 04-08-2022 Orders Only Karen Alcantara MD Work Phone: Pulmonary Medicine Comment on above: 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) Start: 2022 End: 2022 Subsequent hospital visit by physician [facility] (I-Stat) Work Phone: Cat Scan Start: 04-03-2022 Telephone encounter Cleoigor ramos [employer].EMPLOYMENT SERVICES DIRECTOR Work Phone: [facility] Comment on above: Results Start: 04-02-2022 End: 04-02-2022 Patient encounter procedure Genie Olson [employer].EMPLOYMENT SERVICES DIRECTOR Work Phone: [facility] Comment on above: Urinary frequency (P rimary Dx) Start: 03-31-2022 Refill Charis oro [employer].CNM Work Phone: OB/Gynecology Comment on above: Refill Request Start: 03-27-2022 Telephone encounter John hansen MD Work Phone: BAG FILLER MACHINE OPERATOR [facility] Comment on above: Future Appointment ( Schedule UDS) Start: 03-24-2022 ambulatory John swenson MD Work Phone: BAG FILLER MACHINE OPERATOR [facility] Comment on above: Medication Start: 03-23-2022 Telephone encounter Tariq beverly [employer].EMPLOYMENT SERVICES DIRECTOR Work Phone (unformatted): [phone] BAG FILLER MACHINE OPERATOR [facility] Comment on above: Results Start: 03-16-2022 End: 03-16-2022 Patient encounter procedure John Mg MD Work Phone: BAG FILLER MACHINE OPERATOR [facility] Comment on above: Acute cystitis with hematuria (Primary Dx); Cystocele, midline; Urinary urgency; Urinary frequency; Overactive bladder Start: 03-05-2022 E-mail encounter fro m caregiver [facility] Provider [facility] Start: 03-05-2022 Follow-up encounter [facility] Provider [facility] Comment on above: Dr. Franklin Follow Up Start: 03-04-2022 Refill Madelyn Franklin DO Work Phone: Gastroenterology Comment on above: Refill Request (Nyst atin) Start: 02-23-2022 End: 02-23-2022 Orders Only Karen Alcantara MD Work Phone: Pulmonary Medicine Comment on above: Lung nodules (Primar y Dx) Start: 02-20-2022 ambulatory Karen Alcantara MD Work Phone: Pulmonary Medicine Comment on above: Dexa Scan Bone Densi ty Steroid-induced oste openia (Primary Dx) Dosage Start: 02-20-2022 E-mail encounter fro m caregiver Karen Alcantara MD Work Phone: [facility] Start: 02-16-2022 End: 02-16-2022 Patient encounter procedure Karen Alcantara MD Work Phone: Pulmonary Medicine Comment on above: 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); Ground glass opacity present on imaging of lung; Encounter for screening for osteoporosis; 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 manager current use of systemic steroids; 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 Start: 02-13-2022 Telephone encounter Priyanka toro MD Work Phone: NOC Comment on above: Appointment Start: 12-25-2021 ambulatory Charis oro APRN.CNM Work Phone: OB/Gynecology Comment on above: Use of vaginal cream Start: 12-22-2021 End: 12-22-2021 Nursing evaluation of patient and report Mi Nurse Work Phone: Family Medicine [employer] Comment on above: Need for vaccination (Primary Dx) Start: 12-19-2021 End: 12-19-2021 Patient encounter procedure Priyanka Smith MD Work Phone: [facility] [place] Comment on above: Hypothyroidism, unsp ecified type [...] End: 12-01-2021 Subsequent hospital visit by physician [facility] Work Phone: Radiology Comment on above: Cystocele, midline [ N81.11] Start: 11-26-2021 End: 11-26-2021 Refill Mathew Yang MD Work Phone: [facility] Comment on above: Refill Request Cystocele, midline ( Primary Dx); Encounter for gynecological examination (general) (routine) without abnormal findings; Encounter for screening mammogram for breast cancer; Urinary urgency; Urinary frequency; Vaginal atrophy Start: 11-26-2021 End: 11-26-2021 Patient encounter status Charis Lopez APRN.CNM Work Phone: OB/Gynecology Start: 11-18-2021 Telephone encounter Priyanka Nely toro MD Work Phone: [facility] Comment on above: Orders Start: 11-05-2021 End: 11-05-2021 Patient encounter procedure Cleo Maynard APRN.CNJavier Work Phone: OB/Gynecology Comment on above: Urinary urgency (Karyn michele Dx); Overactive bladder Start: 08-12-2021 End: 08-12-2021 ambulatory Respiratory Therapist [facility] Work Phone: Pulmonary Medicine Comment on above: Spirometry Start: 08-12-2021 End: 08-12-2021 Patient encounter procedure Respiratory Therapist [facility] Work Phone: [facility] Comment on above: 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); Antisynthetase syndrome (HCC); Esophageal dysmotility; History of immunosuppressive therapy; Interstitial pulmonary disease (HCC) Start: 08-06-2021 ambulatory Priyanka rausch MD Work Phone: [facility] [employer] Comment on above: Omeprazole Start: 06-26-2020 End: 06-26-2020 Subsequent hospital visit by physician Xr [facility] [place] Work Phone: Radiology Comment on above: Acute right ankle pa in [M25.571] Procedures Date Procedure Procedure Detail Performing Clinician Start: 12-29-2024 Plain X-ray abdomen Dr. Priyanka Smith MD Work Phone: Start: 12-22-[address] Priyanka Smith MD Work Phone: Start: 10-26-2024 Spmtry w/vc expiratory anya w/wo mxml vol vntj Becca Mir [employer].EMPLOYMENT SERVICES DIRECTOR Work Phone: Start: 09-11-2024 Radex facial bones complete minimum 3 views Jasmyne Day MD Work Phone: Start: 09-11-2024 Radex hip unilateral with pelvis 2-3 views Jasmyne Day MD Work Phone: Start: 08-09-2024 Urnls dip stick/tablet rgnt auto w/o microscopy Maira Chen [employer].EMPLOYMENT SERVICES DIRECTOR Work Phone: Start: 04-10-2024 Urnls dip stick/tablet rgnt auto w/o microscopy Jonathan Monterroso [employer].EMPLOYMENT SERVICES DIRECTOR Work Phone: Start: 03-23-2024 FL GUIDANCE OR USE ONLY - NON-RESULTABLE Katherine Bowen MD Work Phone: Start: 03-16-2024 [employer] COVID-19 VACCINE AGE 12+ YR (COMIRNATY) Priyanka Smith MD Work Phone: Start: 03-09-2024 Basic metabolic panel calcium total Jay Black MD Work Phone: Start: 03-09-2024 Manual Differential panel - Blood Jay Black MD Work Phone: Start: 03-08-2024 Assay of osmolality urine Deepika [place] PA-C Work Phone: Start: 03-08-2024 Basic metabolic panel calcium total Jay Black MD Work Phone: Start: 03-08-2024 Manual differential performed [Presence] in Blood Jay Black MD Work Phone: Start: 03-07-2024 Level iv surg pathology gross&microscopic exam Sayed Roxane Sung MD Work Phone: Start: 03-07-2024 End: 03-07-2024 Egd transoral biopsy single/multiple Sayed Roxane Sung MD Work Phone: Start: 03-07-2024 Basic metabolic panel calcium total Jay Black MD Work Phone: Start: 03-07-2024 Manual Differential panel - Blood Jay Black MD Work Phone: Start: 03-06-2024 Mra head w/o contrst material Jay marrufo MD Work Phone: Start: 03-06-2024 Electroencephalogram Jay Black MD Work Phone: Start: 03-06-2024 Echo tthrc r-t 2d w/wom-mode compl spec&colr d Jay Black MD Work Phone: Start: 03-06-2024 Basic metabolic panel calcium total Jay Black MD Work Phone: Start: 03-05-2024 FL GUIDANCE OR USE ONLY - NON-RESULTABLE Jay Black MD Work Phone: Start: 03-05-2024 End: 03-05-2024 Cysto w/insert ureteral stent Katherine Bowen MD Work Phone: Start: 03-05-2024 Culture bacterial quanttative colony count urine Bogdan Patton MD Work Phone: Start: 03-05-2024 Ct abdomen & pelvis w/o contrast material Bogdan Patton MD Work Phone: Start: 03-05-2024 Basic metabolic panel calcium total Maurilio Groves MD Work Phone: Start: 03-05-2024 Thyrotropin [Units/volume] in Serum or Plasma Cecilia Barney PA-C Work Phone: Start: 03-04-2024 Us retroperitoneal real time w/image complete Maurilio Groves MD Work Phone: Start: 03-04-2024 Comprehensive metabolic panel Maurilio guzman MD Work Phone: Start: 03-04-2024 Ecg routine ecg w/least 12 lds trcg only w/o i&r Maurilio Groves MD Work Phone: Start: 03-03-2024 Radiologic exam chest 2 views Jacqueline mcdonnell [employer]EMPLOYMENT SERVICES DIRECTOR Work Phone: Start: 01-31-2024 Lipid 1996 panel - Serum or Plasma Wiley Benitez MD Work Phone: Start: 12-28-2023 Adult depression screening assessment Jacqueline aVladez [employer]EMPLOYMENT SERVICES DIRECTOR Work Phone: Start: 12-01-2023 Urnls dip stick/tablet rgnt auto w/o microscopy Wiley Benitez MD Work Phone: Start: 11-09-2023 Urnls dip stick/tablet rgnt auto w/o microscopy Mathew Yang MD Work Phone: Start: 09-02-2023 Urnls dip stick/tablet rgnt auto w/o microscopy Tariq Brooks [employer]EMPLOYMENT SERVICES DIRECTOR Work Phone (unformatted): [phone] Start: 02-25-2023 Urnls dip stick/tablet rgnt auto w/o microscopy Tariq Brooks [employer]EMPLOYMENT SERVICES DIRECTOR Work Phone (unformatted): [phone] Start: 02-24-2023 [facility] COVID-19 VACCINE (2022- SEASON) AGE 12+ YR Guillermo Croft MD Work Phone: Start: 02-24-2023 INFLUENZA VACCINE, AGE 6 MO - 64 YR, QUADRIVALENT (AFLURIA, FLULAVAL, FLUZONE) Guillermo Croft MD Work Phone: Start: 11-16-2022 Spmtry w/vc expiratory anya w/wo mxml vol vntj Karen Alcantara MD Work Phone: Start: 10-27-2022 Ct thorax w/o contrast material Jacqueline Alcantara MD Work Phone: Start: 10-15-2022 Kidney img morphology vascular flow 1 w/rx Mathew Yang MD Work Phone: Start: 08-12-2022 Radiologic exam chest 2 views Guillermo silverman [employer]EMPLOYMENT SERVICES DIRECTOR Work Phone: Start: 08-11-2022 Radiologic exam abdomen 1 view Mathew Yang MD Work Phone: Start: 07-23-2022 CHYNA SCREENING W JENN Lopez [employer].CNM Work Phone: Start: 07-23-2022 Mammography Mammography Coordinator Start: 07-01-2022 STREP A MOLECULAR (POC) Erin Aguirre PA-C Work Phone: Start: 06-09-2022 Ct abdomen & pelvis w/o contrst 1/> body re John Mg MD Work Phone: Start: 05-22-2022 Urnls dip stick/tablet rgnt auto w/o microscopy [facility] Provider Start: 2022 Ct thorax w/o contrast material Jacqueline Alcantara MD Work Phone: Start: 04-02-2022 Urnls dip stick/tablet rgnt auto w/o microscopy Genie Olson [employer]EMPLOYMENT SERVICES DIRECTOR Work Phone: Start: 03-16-2022 Culture bacterial quanttative colony count urine John Mg MD Work Phone: Start: 03-16-2022 Urnls dip stick/tablet rgnt auto w/o microscopy John Mg MD Work Phone: Start: 12-22-2021 [email or web address] COVID-19 VACCINE, AGE 12+ YR (TALBOT TOP) Priyanka Smith MD Work Phone: Start: 12-19-2021 Adult depression screening assessment Priyanka Smith MD Work Phone: Start: 12-01-2021 Us transvaginal Charis Lopez [employer]CNM Work Phone: Start: 11-26-2021 Urnls dip stick/tablet rgnt auto w/o microscopy Cleo Maynard [employer]CNM Work Phone: Start: 11-05-2021 Urnls dip stick/tablet rgnt auto w/o microscopy Cleo Maynard [employer]CNM Work Phone: Start: 08-12-2021 Spmtry w/vc expiratory anya w/wo mxml vol vntj Gumaro Cuenca MD Work Phone: Start: 06-26-2021 Mammography Priyanka Smith MD Work Phone: Start: 12-16-2020 Adult depression screening assessment Priyanka Smith MD Work Phone: Start: 06-26-2020 Radex ankle complete minimum 3 views Harsha Swenson MD Work Phone: Start: 08-29-2019 Lipid 1996 panel - Serum or Plasma Karen Alcantara MD Work Phone: Start: 12-22-2017 Colonoscopy Priyanka Smith MD Work Phone: Plan of Treatment Date Care Activity Detail Author Start: 03-01-2033 DTaP/Tdap/Td Vaccines (4 - Td or Tdap) DTaP/Tdap/Td Vaccines (4 - Td or Tdap) [facility] Start: 03-01-2033 Urine microalbumin profile DTaP,Tdap,Td Vaccine (4 - T d or Tdap) [facility] Start: 01-30-2029 Lipid panel Lipid Screening [facility] Start: 12-23-2027 Colonoscopy COLONOSCOPY [facility] Start: 12-23-2027 COLORECTAL CANCER SCREENING COLORECTAL CANCER SCREENING [facility] Start: 12-23-2027 Screening for malignant neoplasm of colon [facility] Start: 12-21-2027 Diabetes Screening Diabetes Screening [facility] Start: 09-24-2027 Diabetes Screening Diabetes Screening [facility] Start: 07-20-2027 Diabetes Screening Diabetes Screening [facility] Start: 07-04-2027 Diabetes Screening Diabetes Screening [facility] Start: 05-11-2027 Diabetes Screening Diabetes Screening [facility] Start: 04-17-2027 Diabetes Screening Diabetes Screening [facility] Start: 03-09-2027 Diabetes Screening Diabetes Screening [facility] Start: 01-30-2027 Diabetes mellitus screening Diabetes Screening [facility] Start: 01-30-2027 Diabetes Screening Diabetes Screening [facility] Start: 12-15-2026 Diabetes Screening Diabetes Screening [facility] Start: 06-11-2026 Diabetes Screening Diabetes Screening [facility] Start: 01-22-2026 End: 01-22-2026 Patient encounter procedure 01/22/2026 9:00 AM EDT Office Visit Urology [address] [address] [place] [address] [place] [phone] 1 yr follow up Urology Comment on above: 1 yr follow up Start: 01-10-2026 Annual PCP Team Chronic Disease Visit Annual PCP Team Chronic Disease Visit [facility] Start: 01-09-2026 End: 02-08-2026 XR Abdomen Supine and Upright XR ABDOMEN 1V SUPINE Radiology Routine Kidney stone Expected: 01/09/2026, Expires: 02/08/2026 [facility] Work Phone: Comment on above: Expected: 01/09/2026, Expires: Start: 01-09-2026 End: 01-09-2026 Patient encounter procedure 01/09/2026 8:00 AM EDT Appointment Radiology [address] [facility] [place] [place] [id number] Kidney stone [N20.0] Radiology Comment on above: Kidney stone [N20.0] Start: 12-27-2025 Annual PCP Team Chronic Disease Visit Annual PCP Team Chronic Disease Visit [facility] Start: 12-20-2025 Creatinine measurement Serum Creatinine [facility] Start: 12-13-2025 Annual PCP Team Chronic Disease Visit Annual PCP Team Chronic Disease Visit [facility] Start: 11-29-2025 Annual PCP Team Chronic Disease Visit Annual PCP Team Chronic Disease Visit [facility] Start: 11-02-2025 DIABETES SCREEN DIABETES SCREEN [facility] Start: 11-02-2025 Diabetes Screening Diabetes Screening [facility] Start: 09-28-2025 Creatinine measurement Serum Creatinine [facility] Start: 09-23-2025 Creatinine measurement Serum Creatinine [facility] Start: 09-11-2025 Annual PCP Team Chronic Disease Visit Annual PCP Team Chronic Disease Visit [facility] Start: 08-31-2025 Annual PCP Team Chronic Disease Visit Annual PCP Team Chronic Disease Visit [facility] Start: 08-22-2025 End: 08-22-2025 Patient encounter procedure 08/22/2025 8:30 AM EDT Appointment Mammogram [address] [place] [address] Encounter for screening mammogram for breast cancer [Z12.31] Mammogram Comment on above: Encounter for screening mammogram for br east cancer [Z12.31] Start: 08-21-2025 Screening for malignant neoplasm of breast Mammogram Screening [facility] Start: 07-31-2025 Annual PCP Team Chronic Disease Visit Annual PCP Team Chronic Disease Visit [facility] Start: 07-31-2025 Complete blood count Hemoglobin/Hematocrit [facility] Start: 07-19-2025 Creatinine measurement Serum Creatinine [facility] Start: 07-17-2025 End: 07-17-2025 Patient encounter procedure 07/17/2025 1:00 PM EST Office Visit [facility] [address] [place] [address] Jasmyne Day MD [address] [place] [address] Transfer of care Medicare Wellness [facility] Comment on above: Transfer of care Medicare Wellness Start: 07-16-2025 End: 07-16-2025 Patient encounter procedure 07/16/2025 12:00 PM EST Office Visit Family [facility] [address] [place] [address] Priyanka Smith MD [address] [place] [address] Medicare Wellness [facility] Comment on above: Medicare Wellness Start: 07-12-2025 End: 07-12-2025 Patient encounter procedure 07/12/2025 9:40 AM EST Office Visit Family [facility] [place] [address] [place] [address] Jacqueline Valadez, [employer]EMPLOYMENT SERVICES DIRECTOR [address] [place] [address] Medicare Wellness [facility] [place] Comment on above: Medicare Wellness Start: 07-10-2025 Annual PCP Team Chronic Disease Visit Annual PCP Team Chronic Disease Visit [facility] Start: 07-10-2025 Creatinine measurement Serum Creatinine [facility] Start: 07-04-2025 Creatinine measurement Serum Creatinine [facility] Start: 05-26-2025 Creatinine measurement Serum Creatinine [facility] Start: 05-24-2025 Annual PCP Team Chronic Disease Visit Annual PCP Team Chronic Disease Visit [facility] Start: 05-23-2025 DIABETES SCREEN DIABETES SCREEN [facility] Start: 05-11-2025 Creatinine measurement Serum Creatinine [facility] Start: 04-17-2025 Creatinine measurement Serum Creatinine [facility] Start: 04-10-2025 Annual PCP Team Chronic Disease Visit Annual PCP Team Chronic Disease Visit [facility] Start: 04-05-2025 Creatinine measurement Serum Creatinine [facility] Start: 03-16-2025 Annual PCP Team Chronic Disease Visit Annual PCP Team Chronic Disease Visit [facility] Start: 03-09-2025 Complete blood count Hemoglobin/Hematocrit [facility] Start: 03-09-2025 Creatinine measurement Serum Creatinine [facility] Start: 03-05-2025 Thyroid stimulating hormone measurement TSH Level [facility] Start: 03-01-2025 Annual PCP Team Chronic Disease Visit Annual PCP Team Chronic Disease Visit [facility] Start: 03-01-2025 End: 03-01-2025 Patient encounter procedure 03/01/2025 8:00 AM EDT Office Visit Neurology [address] [phone] Gemma Roberts, [employer]EMPLOYMENT SERVICES DIRECTOR [address] [address] 3 month follow up Neurology Comment on above: 3 month follow up Start: 02-08-2025 End: 02-08-2025 Patient encounter procedure 02/08/2025 1:00 PM EDT Office Visit URO/Gynecology [address] [place], [place] [phone] Wiley Benitez MD [address] [place] [address] 6 month follow up for chronic IC and gross hematuria URO/Gynecology Comment on above: 6 month follow up for chronic IC and ara ss hematuria Start: 02-06-2025 End: 02-06-2025 Patient encounter procedure Pulmonary Me dicine Comment on above: ct follow up Start: 01-30-2025 Creatinine measurement Serum Creatinine [facility] Start: 01-29-2025 End: 11-25-2025 CT Chest WO contrast CT CHEST WO IVCON Radiology Routine Interstitial pulmonary disease (HCC) Expected: 01/29/2025, Expires: 11/25/2025 [facility] Work Phone: Comment on above: Expected: 01/29/2025, Expires: Start: 01-29-2025 End: 01-29-2025 Patient encounter procedure 01/29/2025 9:20 AM EDT Appointment Cat Scan [address] [place] [address] Interstitial pulmonary disease (HCC) [J84.9] Cat Scan Comment on above: Interstitial pulmonary disease (HCC) [J8 4.9] Start: 01-15-2025 Influenza vaccination Influenza Vaccine (#1) [facility] Start: 01-10-2025 End: 01-10-2025 Patient encounter procedure 01/10/2025 8:40 AM EDT Office Visit Family [facility] [address] [place], [place] [phone] Jasmyne Day MD [address] [place], [place] [phone] 2 week follow up [facility] Comment on above: 2 week follow up Start: 01-09-2025 End: 01-09-2025 Patient encounter procedure 01/09/2025 2:30 PM EDT Office Visit Urology [address] [address] Mathew Yang Jr., MD [address] [place], [place] [address] 1 yr follow up Urology Comment on above: 1 yr follow up Start: 12-27-2024 End: 12-27-2024 Patient encounter procedure 12/27/2024 2:20 PM EDT Office Visit Family [facility] [address] [place], [place] [address] Peyton Diaz APRN.EMPLOYMENT SERVICES DIRECTOR [address] [place], [place] [address] Follow up BP [facility] Comment on above: Follow up BP Start: 12-27-2024 Annual PCP Team Chronic Disease Visit Annual PCP Team Chronic Disease Visit [facility] Start: 12-27-2024 Anxiety Screening Anxiety Screening [facility] Start: 12-27-2024 Depression Screening Depression Screening [facility] Start: 12-27-2024 HIV screening HIV Screening [facility] Comment on above: Postponed from 1976 (Declined at t his time) Start: 12-26-2024 End: 12-26-2024 Patient encounter procedure 12/26/2024 9:00 AM EDT Office Visit Urology [address] [address] Mathew Yang Jr., MD [address] [place], [place] [id number] 1 yr follow up Urology Comment on above: 1 yr follow up Start: 12-22-2024 Patient discharge [facility] Start: 12-20-2024 End: 01-19-2025 XR Abdomen Supine and Upright XR ABDOMEN 1V SUPINE Radiology Routine Kidney stone Expected: 12/20/2024, Expires: 01/19/2025 [facility] Work Phone: Comment on above: Expected: 12/20/2024, Expires: Start: 12-20-2024 End: 12-20-2024 Patient encounter procedure 12/20/2024 8:00 AM EDT Appointment Radiology [address] [place] [address] Kidney stone [N20.0] Radiology Comment on above: Kidney stone [N20.0] Start: 12-15-2024 Complete blood count Hemoglobin/Hematocrit [facility] Start: 12-15-2024 Creatinine measurement Serum Creatinine [facility] Start: 12-13-2024 End: 12-13-2024 Patient encounter procedure 12/13/2024 7:40 AM EDT Office Visit Family Medicine [employer] [address] [place] [address] [employer]yndi shafer APRN.EMPLOYMENT SERVICES DIRECTOR [address] [place] [address] 2 week BP check [facility] Comment on above: 2 week BP check Start: 12-06-2024 End: 12-06-2024 Patient encounter procedure 12/06/2024 8:15 AM EDT Office Visit OB/Gynecology [address] [place] [address] Charis Lopez APRN.CNM [address] [place] [address] Annual OB/Gynecology Comment on above: Annual Start: 12-04-2024 DIABETES SCREEN DIABETES SCREEN [facility] Start: 11-28-2024 End: 11-28-2024 Patient encounter procedure 11/28/2024 8:15 AM EDT Office Visit OB/Gynecology [address] [place] [address] Charis Lopez APRN.CNM [address] [place] [address] Annual OB/Gynecology Comment on above: Annual Start: 11-16-2024 End: 11-16-2024 Patient encounter procedure 11/16/2024 8:00 AM EDT Office Visit Neurology [address] [phone] Gemma Roberts, [employer]EMPLOYMENT SERVICES DIRECTOR [address] [address] PD Neurology Comment on above: PD Start: 10-31-2024 End: 10-31-2024 ambulatory 10/31/2024 3:00 PM EDT OT/PT/Speech Visit [facility] [address] [place] [address] Leandro Vargas, PT [address] [place] [address] Overactive bladder [N32.81] [facility] Comment on above: Overactive bladder [N32.81] Start: 10-31-2024 End: 10-31-2024 Patient encounter procedure 10/31/2024 9:00 AM EDT Office Visit URO/Gynecology [address] [place] [address] German Grubbs, [employer].EMPLOYMENT SERVICES DIRECTOR [address] [place] [address] follow up hematuria URO/Gynecology Comment on above: follow up hematuria Start: 10-26-2024 End: 10-26-2024 ambulatory 10/26/2024 10:45 AM EDT OT/PT/Speech Visit [facility] [address] [place] [address] Leandro Vargas, PT [address] [place] [address] Overactive bladder [N32.81] [facility] Comment on above: Overactive bladder [N32.81] Start: 10-26-2024 End: 10-26-2024 Patient encounter procedure 10/26/2024 9:30 AM EDT Office Visit Pulmonary Medicine [address] [place], [place] [address] Karen Alcantara MD [address] [place] [address] 6 mo f/up Pulmonary Medicine Comment on above: 6 mo f/up Start: 10-26-2024 End: 10-26-2024 ambulatory [facility] Comment on above: NSIP (nonspecific interstitial pneumonit is) ([facility]) [J84.89] Start: 10-17-2024 End: 10-17-2024 ambulatory 10/17/2024 10:30 AM EDT OT/PT/Speech Visit [facility] [address] [place] [address] Eufemia Anglin, PT, DPT Overactive bladder [N32.81] [facility] Comment on above: Overactive bladder [N32.81] Start: 10-13-2024 Annual PCP Team Chronic Disease Visit Annual PCP Team Chronic Disease Visit [facility] Start: 10-10-2024 End: 10-10-2024 ambulatory 10/10/2024 11:00 AM EDT OT/PT/Speech Visit [facility] [address] [place] [address] Leandro Vargas, PT [address] [place] [address] Overactive bladder [N32.81] [facility] Comment on above: Overactive bladder [N32.81] Start: 10-02-2024 End: 10-02-2024 ambulatory 10/02/2024 7:45 AM EDT OT/PT/Speech Visit [facility] [address] [place] [address] Leandro Vargas, PT [address] [place] [address] Overactive bladder [N32.81] [facility] Comment on above: Overactive bladder [N32.81] Start: 09-28-2024 End: 09-28-2024 ambulatory 09/28/2024 9:15 AM EDT OT/PT/Speech Visit [facility] [address] [place] [address] Leandro Vargas, PT [address] [place] [address] Fall in home, initial encounter [W19.XXXA, Y92.009] [facility] Comment on above: Fall in home, initial encounter [W19.XXX A, Y92.009] Start: 09-22-2024 End: 12-22-2024 Comprehensive metabolic 2000 panel - Serum or Plasma COMPREHENSIVE METABOLIC PANEL Lab Routine On [employer] therapy Expected: 09/22/2024, Expires: 12/22/2024 [facility] Work Phone: Comment on above: Expected: 09/22/2024, Expires: Start: 09-22-2024 End: 09-22-2024 Patient encounter procedure 09/22/2024 1:00 PM EDT Office Visit Neurology [address] [phone] Rika Adam APRN.EMPLOYMENT SERVICES DIRECTOR [address] [place] [address] [facility] Comment on above: [place] Start: 09-13-2024 Covid-19 Vaccine ( season) Covid-19 Vaccine ( season) [facility] Start: 08-31-2024 End: 11-30-2024 Thyrotropin [Units/volume] in Serum or Plasma [facility] Work Phone: Comment on above: Expected: 08/31/2024, Expires: Start: 08-31-2024 End: 08-31-2024 Patient encounter procedure 08/31/2024 9:40 AM EDT Office Visit Endocrinology [address] [place] [address] Latha Cuevas MD [address] [place] [address] two month follow up Endocrinology Comment on above: two month follow up Start: 08-28-2024 Lipid 1996 panel - Serum or Plasma Lipid Screening [facility] Start: 08-28-2024 Lipid panel Lipid Screening [facility] Start: 08-28-2024 LIPID SCREEN LIPID SCREEN [facility] Start: 08-21-2024 End: 08-21-2024 Patient encounter procedure 08/21/2024 9:10 AM EDT Appointment Mammogram [address] [place], [place] [address] Encounter for screening mammogram for breast cancer [Z12.31] Mammogram Comment on above: Encounter for screening mammogram for br east cancer [Z12.31] Start: 08-17-2024 End: 11-16-2024 Bacteria identified in Urine by Culture [facility] Work Phone: Comment on above: Expected: 08/17/2024 (Approximate), Expi res: 11/16/2024 Start: 08-17-2024 Screening for malignant neoplasm of breast Mammogram Screening [facility] Start: 08-17-2024 End: 11-16-2024 Urinalysis complete panel - Urine [facility] Comment on above: Expected: 08/17/2024 (Approximate), Expi res: 11/16/2024 Start: 08-14-2024 End: 08-14-2024 Patient encounter procedure 08/14/2024 1:45 PM EDT Appointment Radiology [address] [place] [address] right flank discomfort Radiology Comment on above: right flank discomfort Start: 08-10-2024 End: 09-09-2025 US Kidney - bilateral and Urinary bladder US KIDNEY/BLADDER Radiology Routine Gross hematuria Nephrolithiasis Expected: 08/10/2024 (Approximate), Expires: 09/09/2025 [facility] Work Phone: Comment on above: Expected: 08/10/2024 (Approximate), Expi res: 09/09/2025 Start: 08-09-2024 End: 08-09-2024 Patient encounter procedure 08/09/2024 2:00 PM EDT Office Visit Urology [address] [address] Maira Chen, [employer]EMPLOYMENT SERVICES DIRECTOR [address] [place], [place] [phone] hematuria and clots, see RUSSELL per [facility] Comment on above: hematuria and clots, see RUSSELL per [facility] Start: 08-08-2024 End: 08-08-2024 Patient encounter procedure 08/08/2024 9:40 AM EDT Office Visit [facility] [address] [facility] [place] [address] Latha Cuevas MD [address] [facility] [place], [place] [phone] F/U LABS (last seen 05/05/24) Endocrinology Comment on above: F/U LABS (last seen 05/05/24) Start: 08-04-2024 End: 08-04-2024 Follow-up encounter 08/04/2024 2:[address] [facility] URO/Gynecology [address] [place] [address] German Grubbs, [employer].EMPLOYMENT SERVICES DIRECTOR [address] [place] [address] 6 week follow up URO/Gynecology Comment on above: 6 week follow up Start: 08-03-2024 End: 08-03-2024 Patient encounter procedure 08/03/2024 11:00 AM EDT Office Visit Neurology [address] [phone] Bogdan Roberts MD [address] [place], [place] [phone] 6 month follow up Neurology Comment on above: 6 month follow up Start: 07-31-2024 End: 10-30-2024 C reactive protein [Mass/volume] in Serum or Plasma [facility] Comment on above: Expected: 07/31/2024, Expires: Start: 07-31-2024 End: 10-30-2024 CBC W Auto Differential panel - Blood [facility] Comment on above: Expected: 07/31/2024, Expires: Start: 07-31-2024 End: 10-30-2024 Creatine kinase [Enzymatic activity/volume] in Serum or Plasma [facility] Comment on above: Expected: 07/31/2024, Expires: Start: 07-31-2024 End: 10-30-2024 Erythrocyte sedimentation rate [facility] Work Phone: Comment on above: Expected: 07/31/2024, Expires: Start: 07-28-2024 End: 07-28-2024 Follow-up encounter 07/28/2024 3:[address] [facility] URO/Gynecology [address] [place], [place] [phone] Wiley Benitez MD [address], [place] [phone] 6 week follow up URO/Gynecology Comment on above: 6 week follow up Start: 07-10-2024 End: 07-10-2024 Patient encounter procedure 07/10/2024 10:00 AM EST Office Visit Family Medicine [employer] [address] [place], [place] [address] Jacqueline Valadez, HAILE.EMPLOYMENT SERVICES DIRECTOR [address] [place] [address] medicare wellness Family Medicine [employer] Comment on above: medicare wellness Start: 06-29-2024 End: 09-28-2024 CBC W Auto Differential panel - Blood COMPLETE BLOOD COUNT AND DIFFERENTIAL Lab Routine ILD (interstitial lung disease) (HCC) Expected: 06/29/2024, Expires: 09/28/2024 [facility] Comment on above: Expected: 06/29/2024, Expires: Start: 06-29-2024 End: 09-28-2024 Comprehensive metabolic 2000 panel - Serum or Plasma COMPREHENSIVE METABOLIC PANEL Lab Routine Low sodium levels Expected: 06/29/2024, Expires: 09/28/2024 [facility] Comment on above: Expected: 06/29/2024, Expires: Start: 06-29-2024 End: 09-28-2024 Thyrotropin [Units/volume] in Serum or Plasma THYROID STIMULATING HORMONE Lab Routine Hypothyroidism, unspecified type Expected: 06/29/2024, Expires: 09/28/2024 [facility] Comment on above: Expected: 06/29/2024, Expires: Start: 06-29-2024 End: 09-28-2024 Thyroxine (T4) free [Mass/volume] in Serum or Plasma T4 FREE/FREE THYROXINE Lab Routine Hypothyroidism, unspecified type Expected: 06/29/2024, Expires: 09/28/2024 [facility] Comment on above: Expected: 06/29/2024, Expires: Start: 06-26-2024 End: 09-25-2024 Comprehensive metabolic 2000 panel - Serum or Plasma COMPREHENSIVE METABOLIC PANEL Lab Routine Function kidney decreased Expected: 06/26/2024, Expires: 09/25/2024 [facility] Work Phone: Comment on above: Expected: 06/26/2024, Expires: Start: 06-26-2024 End: 09-25-2024 Hemoglobin A1c in Blood HEMOGLOBIN A1C Lab Routine Prediabetes Expected: 06/26/2024, Expires: 09/25/2024 [facility] Comment on above: Expected: 06/26/2024, Expires: Start: 06-26-2024 End: 09-25-2024 Lipid 1996 panel - Serum or Plasma LIPID PANEL BASIC Lab Routine High triglycerides Expected: 06/26/2024, Expires: 09/25/2024 [facility] Comment on above: Expected: 06/26/2024, Expires: Start: 06-26-2024 End: 06-26-2024 Patient encounter procedure 06/26/2024 8:45 AM EST Office Visit Orthopaedics [address] [place] [phone] Raul Juan MD [address] [place] [phone] R wrist (surgery previously by Drake 2017) swelling painful now Orthopaedics Comment on above: R wrist (surgery previously by [facility] ) swelling painful now Start: 06-22-2024 Annual PCP Team Chronic Disease Visit Annual PCP Team Chronic Disease Visit [facility] Start: 06-20-2024 End: 06-20-2024 Patient encounter procedure 06/20/2024 9:00 AM EST Office Visit Pulmonary Medicine [address] [place], [place] [address] Becca Mir APRN.EMPLOYMENT SERVICES DIRECTOR [address] [place] [address] CT follow up Pulmonary Medicine Comment on above: CT follow up Start: 06-16-2024 End: 09-15-2024 ACTH STIMULATION,3 TIME POINTS ACTH STIMULATION,3 TIME POINTS Lab Routine ACTH elevation Expected: 06/16/2024, Expires: 09/15/2024 [facility] Work Phone: Comment on above: Expected: 06/16/2024, Expires: 5 Start: 06-12-2024 End: 05-17-2025 CT Chest WO contrast [facility] Work Phone: Comment on above: Expected: 06/12/2024, Expires: 6 Start: 06-12-2024 End: 06-12-2024 Patient encounter procedure 06/12/2024 11:00 AM EST Appointment Cat Scan [address] [place] [address] Interstitial pulmonary disease (HCC) [J84.9] Cat Scan Comment on above: Interstitial pulmonary disease (HCC) [J8 4.9] Start: 06-11-2024 Creatinine measurement Serum Creatinine [facility] Start: 06-10-2024 DIABETES SCREEN DIABETES SCREEN [facility] Start: 06-09-2024 End: 06-09-2024 Follow-up encounter 06/09/2024 3:[address] [facility] URO/Gynecology [address] [place] [address] Wiley Benitez MD [address] [place] [address] 4-6 week follow up URO/Gynecology Comment on above: 4-6 week follow up Start: 05-30-2024 End: 05-30-2024 Patient encounter procedure 05/30/2024 8:00 AM EST Office Visit Neurology [address] [phone] Gemma Roberts, [employer].EMPLOYMENT SERVICES DIRECTOR [address] [place] [address] Return in about 2 months (around 05/16/2024). Neurology Comment on above: Return in about 2 months (around 024). Start: 05-24-2024 End: 05-24-2024 Follow-up encounter Urogynecology Comment on above: 4-6 week follow up Start: 05-24-2024 End: 05-24-2024 Patient encounter procedure 05/24/2024 8:20 AM EST Office Visit Family Medicine [place] [address] [place] [address] Jacqueline Valadez, [employer].EMPLOYMENT SERVICES DIRECTOR [address] [place] [address] BL knee/leg pain Family Medicine [employer] Comment on above: BL knee/leg pain Start: 05-17-2024 Advance Directive Discussion Advance Directive Discussion [facility] Start: 05-11-2024 Covid-19 Vaccine ( season) Covid-19 Vaccine () [facility] Start: 05-08-2024 Complete blood count Hemoglobin/Hematocrit [facility] Start: 05-05-2024 End: 08-04-2024 Comprehensive metabolic 2000 panel - Serum or Plasma COMPREHENSIVE METABOLIC PANEL Lab Routine Secondary adrenal insufficiency (HCC) Expected: 05/05/2024, Expires: 08/04/2024 [facility] Comment on above: Expected: 05/05/2024, Expires: Start: 05-05-2024 End: 08-04-2024 Corticotropin [Mass/volume] in Plasma ACTH BLD Lab Routine Secondary adrenal insufficiency (HCC) Expected: 05/05/2024, Expires: 08/04/2024 [facility] Comment on above: Expected: 05/05/2024, Expires: Start: 05-05-2024 End: 08-04-2024 Cortisol [Mass/volume] in Serum or Plasma CORTISOL, SERUM Lab Routine Secondary adrenal insufficiency (HCC) Expected: 05/05/2024, Expires: 08/04/2024 [facility] Work Phone: Comment on above: Expected: 05/05/2024, Expires: Start: 05-05-2024 End: 05-05-2024 Patient encounter procedure 05/05/2024 8:00 AM EST Office Visit Endocrinology [address] [place] [phone] Latha Cuevas MD [address] [place] [phone] 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 (HCC) [E27.40]; 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 [Z79.52] Endocrinology Comment on above: 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 (HCC) [E27.40]; Lo ng term systemic 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 [Z79.52] Start: 04-17-2024 End: 04-17-2024 Follow-up encounter 04/17/2024 3:[address] [facility] URO/Gynecology [address] [place] [address] Wiley Benitez MD [address] [facility] [address] [place] [address] 6 week follow up URO/Gynecology Comment on above: 6 week follow up Start: 04-17-2024 End: 04-17-2024 Patient encounter procedure 04/17/2024 9:30 AM EST Office Visit Pulmonary Medicine [address] [place] [phone] Karen Alcantara MD [address] [place] [phone] 6 mo f/up Pulmonary Medicine Comment on above: 6 mo f/up Start: 04-07-2024 End: 04-07-2024 Patient encounter procedure 04/07/2024 9:20 AM EST Procedure Visit [facility] Urology [facility] [address] [facility] [address] [place] [phone] Phong Blake MD [address] [place] [phone] [facility] Start: 03-23-2024 End: 03-23-2024 Admission to same day surgery center 03/23/2024 12:30 PM EST - 03/23/2024 1:30 PM EST Surgery [facility] MAIN OR [address] [place] [address] Katherine Bowen MD [address] [place], [place] [phone] CYSTOSCOPY AND PYELOGRAM [27652 (CPT )] [facility] MAIN OR Comment on above: CYSTOSCOPY AND PYELOGRAM [98628 (CPT )] Start: 03-23-2024 End: 03-23-2024 Cysto bladder w/ureteral catheterization CYSTOSCOPY AND PYELOGRAM Calculus of ureter 03/23/2024 12:30 PM EST [facility] Operating Room Start: 03-23-2024 End: 03-23-2024 Cysto w/insert ureteral stent CYSTOSCOPY WITH INSERTIO N URETERAL STENT Calculus of ureter 03/23/2024 12:30 PM EST [facility] Operating [facility] Start: 03-23-2024 End: 03-23-2024 Cysto w/ureteroscopy w/lithotripsy CYSTOSCOPY WITH URETEROSCOPY AND OR PYELOSCOPY WITH REMOVAL OR MANIPULATION CALCULUS WITH LITHOTRIPSY Calculus of ureter 03/23/2024 12:30 PM EST [facility] Operating Room Start: 03-23-2024 Subsequent hospital visit by physician 03/23/2024 12:30 PM EST Hospital Encounter [facility] MAIN OR [address] [place] [address] Katherine Bowen MD [address] [place] [address] [facility] MAIN OR Start: 03-17-2024 End: 06-16-2024 PHOSPHORYLATED ALPHA-SYNUCLEIN, SKIN BIOPSY PHOSPHORYLATED ALPHA-SYNUCLEIN, SKIN BIOPSY Lab Routine Parkinsonism, unspecified Parkinsonism type (HCC) Expected: 03/17/2024, Expires: 06/16/2024 [facility] Comment on above: Expected: 03/17/2024, Expires: Start: 03-16-2024 End: 03-16-2024 Patient encounter procedure 03/16/2024 9:00 AM EDT Office Visit Neurology [address] [phone] Gemma Roberts, [employer].EMPLOYMENT SERVICES DIRECTOR [address] [place] [address] TD, secondary PDism, vs IPD Neurology Comment on above: TD, secondary PDism, vs IPD Start: 03-07-2024 End: 03-07-2024 Egd transoral biopsy single/multiple [facility] Gastroenterology Start: 03-07-2024 End: 03-07-2024 Evaluation and management of inpatient 03/07/2024 8:45 AM EDT - 03/07/2024 9:15 AM EDT Surgery [facility] Endoscopy [address] [place] [phone] Jennifer Sung MD [address] [place] [phone] ESOPHAGOGASTRODUODENOSCOPY WITH BIOPSY [78328 (CPT )] [facility] Endoscopy Comment on above: ESOPHAGOGASTRODUODENOSCOPY WITH BIOPSY [ 03927 (CPT )] Start: 03-06-2024 End: 03-06-2024 Patient encounter procedure 03/06/2024 9:40 AM EDT Office Visit Family Medicine [employer] [address] [place] [address] Jacqueline Valadez, [employer].EMPLOYMENT SERVICES DIRECTOR [address] [place] [address] BP check Family Medicine [employer] Comment on above: BP check Start: 03-03-2024 End: 03-03-2024 Patient encounter procedure 03/03/2024 10:00 AM EDT Office Visit URO/Gynecology [address] [place] [address] Wiley Benitez MD [address] [facility] [address] [place] [address] 6 week follow up URO/Gynecology Comment on [...] AM EDT Office Visit Neurology [address] [facility] [address] [address] [place] [phone] Bogdan Roberts MD [address] [place], [place] [phone] Tremor [R25.1] Neurology Comment on above: Tremor [R25.1] Start: 01-16-2024 COVID-19 Vaccine () COVID-19 Vaccine () [facility] Start: 01-16-2024 COVID-19 Vaccine () COVID-19 Vaccine () [facility] Start: 01-16-2024 Covid-19 Vaccine () Covid-19 Vaccine () [facility] Start: 01-16-2024 Covid-19 Vaccine () Covid-19 Vaccine () [facility] Start: 01-16-2024 Influenza vaccination [facility] Start: 01-13-2024 End: 01-13-2024 Patient encounter procedure 01/13/2024 2:00 PM EDT Office Visit Neurology [address] [facility] [address] [place] [address] Bogdan Roberts MD [address] [place], [place] [phone] Tremor [R25.1] Neurology Comment on above: Tremor [R25.1] Start: 01-11-2024 End: 01-11-2024 Patient encounter procedure 01/11/2024 11:00 AM EDT Office Visit URO/Gynecology [address] [place] [address] Wiley Benitez MD [address] [facility] [address] [place], [place] [phone] one month follow up URO/Gynecology Comment on above: one month follow up Start: 12-28-2023 End: 03-28-2024 Hemoglobin A1c in Blood HEMOGLOBIN A1C Lab Routine Elevated glucose Expected: 12/28/2023, Expires: 03/28/2024 [facility] Comment on above: Expected: 12/28/2023, Expires: Start: 12-28-2023 End: 03-28-2024 Lipid 1996 panel - Serum or Plasma LIPID PANEL BASIC Lab Routine Obesity, Class I, BMI 30-34.9 Expected: 12/28/2023, Expires: 03/28/2024 [facility] Comment on above: Expected: 12/28/2023, Expires: Start: 12-28-2023 End: 12-28-2023 Patient encounter procedure 12/28/2023 7:20 AM EDT Office Visit Family Medicine [employer] [address] [place], [place] [phone] Jacqueline Valadez APRN.EMPLOYMENT SERVICES DIRECTOR [address] [place], [place] [phone] 6 mo f/u [facility] Comment on above: 6 mo f/u Start: 12-23-2023 ANNUAL PCP TEAM CHRONIC DISEASE VISIT ANNUAL PCP TEAM CHRONIC DISEASE VISIT [facility] Start: 12-23-2023 HIV SCREENING HIV SCREENING [facility] Comment on above: Postponed from 1976 (Declined at t his time) Start: 12-23-2023 HIV screening HIV Screening [facility] Comment on above: Postponed from 1976 (Declined at t his time) Start: 12-23-2023 End: 12-21-2024 XR Abdomen Supine and Upright XR ABDOMEN 1V SUPINE Radiology Routine Kidney stone Expected: 12/23/2023, Expires: 12/21/2024 [facility] Work Phone: Comment on above: Expected: 12/23/2023, Expires: Start: 12-23-2023 End: 12-23-2023 Patient encounter procedure 12/23/2023 9:00 AM EDT Office Visit [facility] [address] [place], [place] [phone] Priyanka Smith MD [address] [place], [place] [phone] 6 mo f/u [facility] Comment on above: 6 mo f/u Start: 12-21-2023 End: 03-21-2024 Basic metabolic 2000 panel - Serum or Plasma BASIC METABOLIC PNL Lab Routine Low sodium levels Expected: 12/21/2023 (Approximate), Expires: 03/21/2024 [facility] Work Phone: Comment on above: Expected: 12/21/2023 (Approximate), Expi res: 03/21/2024 Start: 12-21-2023 End: 12-21-2023 Patient encounter procedure 12/21/2023 2:00 PM EDT Office Visit Urology [address] [address] Mathew Yang Jr., MD [address] [place] [address] post-op and kub prior--ok'd by jay Urology Comment on above: post-op and kub prior--ok'd by jay Start: 12-21-2023 End: 03-21-2024 Thyrotropin [Units/volume] in Serum or Plasma TSH BLD Lab Routine Hypothyroidism, unspecified type Expected: 12/21/2023 (Approximate), Expires: 03/21/2024 [facility] Work Phone: Comment on above: Expected: 12/21/2023 (Approximate), Expi res: 03/21/2024 Start: 12-01-2023 End: 12-01-2023 Patient encounter procedure 12/01/2023 1:30 PM EDT 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 [facility] [place] [place] [phone] Charis Lopez APRN.CN [address] [place] [address] annual OB/Gynecology Comment on above: annual Start: 11-22-2023 End: 11-22-2023 Admission to same day surgery center 11/22/2023 8:00 AM EDT - 11/22/2023 9:30 AM EDT Surgery [facility] [address] [place] [address] Mathew Yang Jr., MD [address] [place] [address] EXTRACORPOREAL SHOCKWAVE LITHOTRIPSY UNILATERAL [facility] Comment on above: EXTRACORPOREAL SHOCKWAVE LITHOTRIPSY UNI LATERAL Start: 11-22-2023 End: 11-22-2023 Lithotripsy xtrcorp shock wave [facility] Start: 11-22-2023 Subsequent hospital visit by physician 11/22/2023 8:00 AM EDT Hospital Encounter [facility] [address] [place] [address] Mathew Yang Jr., MD [address] [place] [address] Renal calculus, right [N20.0] [facility] Comment on above: Renal calculus, right [N20.0] Start: 11-09-2023 End: 11-09-2023 Patient encounter procedure 11/09/2023 9:00 AM EDT Office Visit Urology [address] [address] Mathew Yang Jr., MD [address] [place], [place] [address] 1y follow up Urology Comment on above: 1y follow up Start: 11-04-2023 End: 12-03-2023 XR ABDOMEN 1V SUPINE XR ABDOMEN 1V SUPINE Radiology Routine Kidney stone Expected: 11/04/2023, Expires: 12/03/2023 [facility] Work Phone: Comment on above: Expected: 11/04/2023, Expires: Start: 11-04-2023 End: 11-04-2023 Patient encounter procedure 11/04/2023 8:00 AM EDT Appointment Radiology [address] [place], [place] [address] kidney stones Radiology Comment on above: kidney stones Start: 11-03-2023 HEMOGLOBIN/HEMATOCRIT HEMOGLOBIN/HEMATOCRIT [facility] Start: 11-03-2023 SERUM CREATININE SERUM CREATININE [facility] Start: 11-03-2023 End: 11-03-2023 Patient encounter procedure 11/03/2023 1:30 PM EDT Office Visit BAG FILLER MACHINE OPERATOR [facility] [address] [address] Wiley Benitez MD [address] [facility] [address] [place] [address] Cystoscopy with BOTOX BAG FILLER MACHINE OPERATOR [facility] Comment on above: Cystoscopy with BOTOX Start: 11-02-2023 End: 11-02-2023 Patient encounter procedure 11/02/2023 8:20 AM EDT Appointment Cat Scan [address] [place] [address] Routine Cat Scan Comment on above: Routine Start: 11-01-2023 End: 10-15-2024 CT Chest WO contrast CT CHEST WO IVCON Radiology Routine Expected: 11/01/2023, Expires: 10/15/2024 [facility] Work Phone: Comment on above: Expected: 11/01/2023, Expires: 5 Start: 09-16-2023 End: 12-16-2023 CBC panel - Blood by Automated count COMPLETE BLOOD COUNT Lab Routine Expected: 09/16/2023, Expires: 12/16/2023 [facility] Comment on above: Expected: 09/16/2023, Expires: 4 Start: 09-16-2023 End: 12-16-2023 Hepatic function 2000 panel - Serum or Plasma HEPATIC FUNCTION PNL Lab Routine Expected: 09/16/2023, Expires: 12/16/2023 [facility] Comment on above: Expected: 09/16/2023, Expires: 4 Start: 09-16-2023 End: 09-16-2023 Patient encounter procedure 09/16/2023 1:15 PM EDT Office Visit Pulmonary Medicine [address] [place] [phone] Karen Alcantara MD [address] [place] [address] 6 month follow up Pulmonary Medicine Comment on above: 6 month follow up Start: 08-24-2023 HPV TESTING HPV TESTING [facility] Start: 08-24-2023 PAP TESTING PAP TESTING [facility] Start: 08-21-2023 ANNUAL PCP TEAM CHRONIC DISEASE VISIT ANNUAL PCP TEAM CHRONIC DISEASE VISIT [facility] Start: 07-24-2023 Mammography [facility] Start: 07-24-2023 Screening for malignant neoplasm of breast Mammogram Screening [facility] Start: 06-24-2023 End: 08-24-2023 Basic metabolic 2000 [...] VISIT ANNUAL PCP TEAM CHRONIC DISEASE VISIT [facility] Start: 05-17-2023 Behavioral Health Screening Behavioral Health Screening [facility] Start: 05-17-2023 Medicare Advantage Annual Wellness Visit Medicare Advantage Annual Wellness Visit [facility] Start: 04-21-2023 Covid-19 Vaccine () Covid-19 Vaccine () [facility] Start: 01-15-2023 Influenza vaccination [facility] Start: 12-20-2022 End: 02-19-2023 Thyrotropin [Units/volume] in Serum or Plasma TSH BLD Lab Routine Acquired hypothyroidism Expected: 12/20/2022, Expires: 02/19/2023 [facility] Work Phone: Comment on above: Expected: 12/20/2022, Expires: Start: 12-19-2022 Adult depression screening assessment DEPRESSION SCREENING [facility] Start: 12-19-2022 ANNUAL PCP TEAM CHRONIC DISEASE VISIT ANNUAL PCP TEAM CHRONIC DISEASE VISIT [facility] Start: 12-19-2022 HIV SCREENING HIV SCREENING [facility] Comment on above: Postponed from 1976 (Declined at t his time) Start: 10-16-2022 End: 05-17-2023 Ct thorax w/o contrast material CT CHEST WO IVCON Radiology Routine NSIP (nonspecific interstitial pneumonia) (HCC) Expected: 10/16/2022, Expires: 05/17/2023 [facility] Work Phone: Comment on above: Expected: 10/16/2022, Expires: Start: 06-26-2022 Mammography MAMMOGRAM [facility] Start: 06-21-2022 End: 08-21-2022 CBC W Auto [...] VISIT ANNUAL PCP TEAM CHRONIC DISEASE VISIT [facility] Start: 05-17-2022 DEPRESSION ASSESSMENT DEPRESSION ASSESSMENT [facility] Start: 05-01-2022 COVID-19 VACCINE (5 - Inna risk series) COVID-19 VACCINE (5 - Inna risk series) [facility] Start: 04-23-2022 COVID-19 VACCINE (4 - Booster for Inna series) COVID-19 VACCINE (4 - Booster for Inna series) [facility] Start: 04-21-2022 PNEUMOCOCCAL (2 - PCV) PNEUMOCOCCAL (2 - PCV) [facility] Start: 04-08-2022 End: 06-08-2022 CBC panel - [...] 02-16-2022 COVID-19 VACCINE (4 - Booster for Inna series) COVID-19 VACCINE (4 - Booster for Inna series) [facility] Start: 02-12-2022 End: 09-11-2022 Ct thorax w/o contrast material CT CHEST WO IVCON Radiology Routine Interstitial pulmonary disease (HCC) Expected: 02/12/2022, Expires: 09/11/2022 [facility] Work Phone: Comment on above: Expected: 02/12/2022, Expires: 3 Start: 01-15-2022 Influenza vaccination INFLUENZA (#1) [facility] Start: 12-16-2021 Adult depression screening assessment DEPRESSION SCREENING [facility] Start: 07-31-2021 SHINGRIX VACCINE (2 of 2) SHINGRIX VACCINE (2 of 2) [facility] Start: 06-02-2021 COVID-19 VACCINE (3 - Booster for Inna series) COVID-19 VACCINE (3 - Booster for Inna series) [facility] Start: 05-17-2021 DEPRESSION ASSESSMENT DEPRESSION ASSESSMENT [facility] Start: 04-29-2020 Urine microalbumin profile [facility] Start: 08-24-2019 Screening for malignant neoplasm of cervix Cervical Cancer Screening [facility] Start: 2018 RSV Immunization aged 60 or older (1 - 1-dose 60+ series) RSV Immunization aged 60 or older (1 - 1-dose 60+ series) [facility] Start: 2018 RSV Immunization for Adults (1 - Risk 60-74 years 1-dose series) RSV Immunization for Adults (1 - Risk 60-74 years 1-dose series) [facility] Start: 2018 RSV Vaccine (1 - 1-dose 60+ series) RSV Vaccine (1 - 1-dose 60+ series) [facility] Start: 2018 RSV Vaccine (1 - Risk 60-74 years 1-dose series) RSV Vaccine (1 - Risk 60-74 years 1-dose series) [facility] Start: 08-28-2015 FECAL OCCULT BLOOD FECAL OCCULT BLOOD [facility] Start: 08-28-2015 Screening for malignant neoplasm of colon Fecal Occult Blood [facility] Start: 2003 COLOGUARD (FIT-DNA) COLOGUARD (FIT-DNA) [facility] Start: [address] COLONOGRAPHY [facility] Start: 2003 Screening for malignant neoplasm of colon [facility] Start: 11-21-2003 SIGMOIDOSCOPY SIGMOIDOSCOPY [facility] Start: 1998 Screening for malignant neoplasm of breast Mammogram [facility] Start: 1988 Screening for malignant neoplasm of cervix [facility] Start: 1979 Screening for malignant neoplasm of cervix Pap Smear [facility] Start: 1976 Anxiety Screening Anxiety Screening [facility] Start: 1976 Depression Screening Depression Screening [facility] Start: 1976 Hepatitis C screening Hepatitis C Screening [facility] Start: 1976 HIV SCREENING HIV SCREENING [facility] Start: 1970 Depression Screening Depression Screening [facility] Start: 1959 MMR Vaccines (1 of 1 - Standard series) MMR Vaccines (1 of 1 - Standard series) [facility] Start: 1958 Annual wellness visit Medicare Initial Physical (IPPE) [facility] Start: 1958 Screening for malignant neoplasm of colon [facility] Bacteria identified in Urine by Culture [...] Post-operative state Urinary frequency 02/25/2023 10:54 AM T [facility] Work Phone (unformatted): [phone] Bacteria identified in Urine by Culture URINE CULTURE Microbiology Routine Urinary frequency Dysuria 09/02/2023 9:01 AM EDT [facility] Work Phone (unformatted): [phone] Bacteria identified in Urine by Culture URINE CULTURE Microbiology Routine Urinary tract infection with hematuria, site unspecified 04/10/2024 4:15 PM [facility] Work Phone: Bacteria identified in Urine by Culture BACTERIAL CULTURE, URINE Microbiology Routine Gross hematuria 08/09/2024 2:52 PM EDT [facility] BRAD/TRICHOMONAS NAAT BRAD /TRICHOMONAS NAAT Lab Routine Vulvar burning 10/07/2023 9:23 AM T [facility] Work Phone (unformatted): [phone] End: 08-12-2022 CBC W Auto Differential panel - Blood CBC + DIFF Lab Routine History of immunosuppressive therapy Every 6 months for 4 Occurrences starting 08/12/2021 until 08/12/2022 [facility] Work Phone: Comment on above: Every 6 months for 4 Occurrences startin g 08/12/2021 until 08/12/2022 CT Chest WO contrast CT CHEST WO IVCON Radiology Routine 11/02/2023 8:58 AM EDT [facility] Work Phone: End: 10-11-2025 CT Head WO contrast CT BRAIN WO IVCON Radiology STAT Injury of head, initial encounter 1 Occurrences starting 09/11/2024 until 10/11/2025 [facility] Work Phone: Comment on above: 1 Occurrences starting 09/11/2024 until 10/11/2025 DBT Breast - bilater al screening CHYNA SCREENING W JENN Radiology Routine Encounter for screening mammogram for malignant neoplasm of breast 08/18/2023 9:38 AM EDT [facility] Work Phone: End: 12-28-2024 DBT Breast - bilateral screening CHYNA SCREENING W JENN Radiology Routine Encounter for screening mammogram for breast cancer 1 Occurrences starting 11/29/2023 until 12/28/2024 [facility] Work Phone: Comment on above: 1 Occurrences starting 11/29/2023 until 12/28/2024 DBT Breast - bilater al screening CHYNA SCREENING W JENN Radiology Routine Encounter for screening mammogram for breast cancer 08/21/2024 9:09 AM EDT [facility] Work Phone: End: 01-05-2026 DBT Breast - bilateral screening CHYNA SCREENING W JENN Radiology Routine Encounter for screening mammogram for breast cancer 1 Occurrences starting 12/06/2024 until 01/05/2026 [facility] Work Phone: Comment on above: 1 Occurrences starting 12/06/2024 until 01/05/2026 End: 03-18-2023 Dxa bone density study 1/> sites axial skel DXA-AXIAL SKELETON Radiology Routine 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 manager 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 of 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 steroids 1 Occurrences starting 02/16/2022 until 03/18/2023 [facility] Work Phone: Comment on above: 1 Occurrences starting 02/16/2022 until 03/18/2023 Hzv zoster vacc fernandez mbinant adjuvanted im njx ZOSTER VACC RECOMBINANT,IM Immunization/Injection [...] 1 Occurrences starting 08/11/2022 until 09/10/2023 End: 07-20-2025 LUNG DIFFUSION CAPACITY (DLCO) LUNG DIFFUSION CAPACITY (DLCO) PFT Routine NSIP (nonspecific interstitial pneumonitis) ([facility]LY [facility]) 1 Occurrences starting 06/20/2024 until 07/20/2025 [facility] Comment on above: 1 Occurrences starting 06/20/2024 until 07/20/2025 LUNG DIFFUSION CAPAC ITY (DLCO) LUNG DIFFUSION CAPACITY (DLCO) PFT Routine NSIP (nonspecific interstitial pneumonitis) ([facility]) 10/26/2024 8:51 AM EDT [facility] Work Phone: End: 07-20-2025 LUNG VOLUMES LUNG VOLUMES PFT Routine NSIP (nonspecific interstitial pneumonitis) ([facility]) 1 Occurrences starting 06/20/2024 until 07/20/2025 [facility] Comment on above: 1 Occurrences starting 06/20/2024 until 07/20/2025 LUNG VOLUMES LUNG VOLUMES PFT Routine NSIP (nonspecific interstitial pneumonitis) ([facility]) 10/26/2024 8:51 AM EDT [facility] Work Phone: End: 07-21-2024 CHYNA SCREENING CHYNA SCREENING Radiology Routine Encounter for screening mammogram for malignant neoplasm of breast 1 Occurrences starting 06/22/2023 until 07/21/2024 [facility] Work Phone: Comment on above: 1 Occurrences starting 06/22/2023 until 07/21/2024 End: 12-26-2022 CHYNA SCREENING W JENN CHYNA SCREENING W JENN Radiology Routine Encounter for screening mammogram for breast cancer 1 Occurrences starting 11/26/2021 until 12/26/2022 [facility] Work Phone: Comment on above: 1 Occurrences starting 11/26/2021 until 12/26/2022 Punch biopsy skin ea sep/additional lesion PUNCH BIOPSY SKIN EA SEP/ADDITIONAL LESION Procedures Routine Parkinsonism, unspecified Parkinsonism type (HCC) Ordered: 03/17/2024 [facility] Comment on above: Ordered: 03/17/2024 Punch biopsy skin si ngle lesion PUNCH BIOPSY SKIN SINGLE LESION Procedures Routine Parkinsonism, unspecified Parkinsonism type (HCC) Ordered: 03/17/2024 [facility] Work Phone: Comment on above: Ordered: 03/17/2024 SPIROMETRY BASELINE ONLY SPIROME TRY BASELINE ONLY PFT Routine NSIP (nonspecific interstitial pneumonia) ([facility]) 08/12/2021 1:37 PM EDT [facility] Work Phone: End: 07-20-2025 SPIROMETRY BASELINE ONLY SPIROMETRY BASELINE ONLY PFT Routine NSIP (nonspecific interstitial pneumonitis) ([facility]) 1 Occurrences starting 06/20/2024 until 07/20/2025 [facility] Work Phone: Comment on above: 1 Occurrences starting 06/20/2024 until 07/20/2025 SPIROMETRY BASELINE ONLY SPIROME TRY BASELINE ONLY PFT Routine NSIP (nonspecific interstitial pneumonitis) ([facility]) 10/26/2024 8:51 AM EDT [facility] Work Phone: URODYNAMICS WHI URODYNAMICS WHI Procedures Routine Urinary urgency Urinary frequency Overactive bladder Ordered: 03/16/2022 [facility] Work Phone: Comment on above: Ordered: 03/16/2022 US Kidney - bilatera l and Urinary bladder US KIDNEY/BLADDER Radiology Routine Gross hematuria Nephrolithiasis 08/14/2024 1:58 PM EDT [facility] Work Phone: End: 12-27-2022 Us transvaginal US FEMALE PELVIS [...] [facility] Work Phone: XR Abdomen Single view [facility] XR Abdomen Supine and Upright XR ABDOMEN 1V SUPINE Radiology Routine Kidney stone 11/04/2023 8:02 AM EDT [facility] Work Phone: XR Abdomen Supine and Upright XR ABDOMEN 1V SUPINE Radiology Routine Kidney stone 11/29/2023 8:08 AM EDT [facility] Work Phone: End: 03-31-2025 XR Chest PA and Lateral XR CHEST 2V FRONTAL/LAT Radiology STAT Rib pain 1 Occurrences starting 03/01/2024 until 03/31/2025 [facility] Work Phone: Comment on above: 1 Occurrences starting 03/01/2024 until 03/31/2025 End: 07-14-2025 XR Hand - right PA and Lateral and Oblique XR HAND GENERAL 3V PA/LAT/OBL RIGHT Radiology Routine Right hand pain 1 Occurrences starting 06/14/2024 until 07/14/2025 [facility] Work Phone: Comment on above: 1 Occurrences starting 06/14/2024 until 07/14/2025 XR Hand - right PA a nd Lateral and Oblique XR HAND GENERAL 3V PA/LAT/OBL RIGHT Radiology Routine Right hand pain 06/26/2024 8:42 AM EST [facility] Work Phone: End: 06-23-2025 XR Knee - bilateral 4 Views XR KNEE GENERAL 4V AP BOTH/PA BOTH/LAT/MERC BILATERAL Radiology Routine Acute pain of both knees 1 Occurrences starting 05/24/2024 until 06/23/2025 [facility] Work Phone: Comment on above: 1 Occurrences starting 05/24/2024 until 06/23/2025 XR Knee - bilateral 4 Views XR K NEE GENERAL 4V AP BOTH/PA BOTH/LAT/MERC BILATERAL Radiology Routine Acute pain of both knees 05/24/2024 10:23 AM EST [facility] [place] OR [facility] OR [facility] Immunizations Immunization Date Immunization Notes Care Provider [facility] 03-16-2024 COVID-19 vaccine, ag e 12+ yr (PFIZER-BIONTECH COMIRNAT) Priyanka Smith MD Work Phone: [facility] 03-16-2024 influenza, high dose seasonal, preservative-free Priyanka Smith MD Work Phone: [facility] 03-16-2024 influenza virus vaccine, unspecified formulation German Grubbs APRNKalebEMPLOYMENT SERVICES DIRECTOR Work Phone: [facility] 03-01-2023 tetanus toxoid, reduced diphtheria toxoid, and acellular pertussis vaccine, adsorbed Mi Nurse Work Phone: [facility] Work Phone: 02-24-2023 COVID-19 vaccine, ag e 12+ yr, season (PFIZER-BIONTECH) Immunization Rafael Work Phone: [facility] Work Phone: 02-24-2023 influenza, injectabl e, quadrivalent, contains preservative Immunization [employer] Work Phone: [facility] Work Phone: 02-24-2023 influenza virus vaccine, unspecified formulation Mathew Yang Jr., MD Work Phone: [facility] 06-22-2022 pneumococcal Conjugate, unspecified formulation Priyanka Smith MD Work Phone: [facility] Work Phone: 06-22-2022 pneumococcal (PCV20) vaccine, 20 valent (PREVNAR 20) Priyanka Smith MD Work Phone: [facility] 03-06-2022 COVID-19 booster vaccine, age 12+ yr, bivalent (PFIZER-BIONTECH) Tariq Brooks APRN.[facility] Work Phone (unformatted): [phone] [facility] Work Phone: 03-06-2022 influenza, injectabl e, quadrivalent, contains preservative Tariq Barley [employer] Work Phone (unformatted): [phone] [facility] Work Phone: 03-06-2022 influenza virus vaccine, unspecified formulation Karen Alcantara MD Work Phone: [facility] 12-22-2021 COVID-19 vaccine, ag e 12+ yr (PFIZER-BIONTECH - TALBOT TOP) Nd Nurse Work Phone: [facility] Work Phone: 12-04-2021 zoster vaccine recombinant Gerri Cruz PA-C Work Phone: [facility] Work Phone: 06-05-2021 zoster vaccine recombinant Priyanka Smith MD Work Phone: [facility] Work Phone: 04-21-2021 pneumococcal polysaccharide vaccine, 23 valent Priyanka Smith MD Work Phone: [facility] Work Phone: 03-08-2021 influenza, injectabl e, quadrivalent, contains preservative Priyanka Smith MD Work Phone: [facility] Work Phone: 07-22-2020 COVID-19 vaccine (INNA) Priyanka Smith MD Work Phone: [facility] 03-04-2020 influenza, injectabl e, quadrivalent, contains preservative Priyanka Smith MD Work Phone: [facility] 02-28-2019 influenza, injectabl e, quadrivalent, contains preservative Priyanka Smith MD Work Phone: [facility] 03-28-2018 influenza, injectabl e, quadrivalent, preservative free Priyanka Smith MD Work Phone: [facility] 03-08-2018 influenza, injectabl e, quadrivalent, preservative free Dr. Priyanka Smith MD Work Phone: [facility] 03-08-2018 influenza, seasonal, injectable, preservative free Priyanka Smith MD Work Phone: [facility] 04-19-2017 influenza, injectabl e, quadrivalent, contains preservative Priyanka Smith MD Work Phone: [facility] 04-17-2014 influenza, seasonal, injectable Priyanka Smith MD Work Phone: [facility] 05-26-2013 influenza virus vaccine, unspecified formulation Priyanka Smith MD Work Phone: [facility] 02-11-2012 influenza virus vaccine, unspecified formulation Priyanka Smith MD Work Phone: [facility] 04-29-2010 diphtheria, tetanus toxoids and acellular pertussis vaccine Priyanka Smith MD Work Phone: [facility] 08-05-2009 tetanus toxoid, reduced diphtheria toxoid, and acellular pertussis vaccine, adsorbed Priyanka Smith MD Work Phone: [facility] 08-05-2009 tuberculin skin test ; purified protein derivative solution, intradermal Wiley Benitez MD Work Phone: [facility] NEGATED: Highlighted row has not occurred!03-05-2024 Seasonal trivalent influenza vaccine, adjuvanted, preservative free Cecilia Barney PA-C Work Phone: [facility] [employer] Comment on above: Deferred: Patient Re fused Payers Date Payer Category Payer Self-pay 2023 Medicare [id number] 2023 Medicare (Managed Care) MMO MEDADVANTAGE HMO [id number] 2023 Medicare HMO MMO MEDICARE ADV ANTAGE [id number] 2023 Medicare [id number] 2022 Medicaid [id number] 2022 Medicaid [id number] 2020 Medicaid [employer] [facility] [facility] [place] [id number] 2020-Present [phone] [address] [place] [address] Medicaid [id number] 2020 Medicaid [id number] Medicare [id number] Unknown [id number] Unknown [id number] 462 Unknown [id number] 462 Unknown [id number] Unknown [id number] 462 Unknown [id number] 462 Unknown [id number] 462 Unknown [id number] 462 Unknown [id number] 462 Unknown [id number] 462 Unknown [id number] 462 Unknown [id number] 462 Social History Date Type Detail Facility Start: 01-04-2020 End: 11-09-2023 Tobacco smoking status NHIS Never smoked tobacco [facility] Start: 06-18-2021 End: 01-10-2025 Alcohol intake Current drinker of alcohol (finding) [facility] Start: 01-04-2020 End: 06-02-2020 History SDOH Alcohol Frequency 2 [facility] Start: 01-04-2020 End: 06-02-2020 History SDOH Alcohol Std Drinks 1 [facility] Start: 03-01-2020 History SDOH Social Connections Phone 4 [facility] Start: 09-03-2019 History SDOH Social Connections Living 5 [facility] Start: 09-03-2019 History SDOH Physica l Activity DPW 0 [facility] Start: 09-03-2019 Education 17 [facility] Start: 01-04-2020 End: 02-16-2022 Tobacco Comment No one in household smokes. Smoker in childhood home. [facility] Start: 1960 Sex Assigned At Not on file [facility] Start: 05-27-2020 End: 04-17-2022 Exposure to SARS-CoV-2 (event) Not sure [facility] Start: 01-04-2020 End: 11-09-2023 Tobacco use and exposure Smokeless tobacco non-user [facility] Work Phone: Start: 02-13-2022 End: 02-23-2022 Exposure to SARS-CoV-2 (event) Unable to assess [facility] Start: 11-16-2022 End: 11-29-2024 History of Social function [facility] Work Phone: Start: 11-16-2022 End: 11-29-2024 Tobacco use panel [facility] Work Phone: Start: 04-17-2012 Adult Depression Screening Assessment 0 [facility] Work Phone: How often to you hav e a drink containing alcohol? Monthly or less [facility] Work Phone: How many standard drinks containing alcohol do you have on a typical day? 1 or 2 [facility] Work Phone: How often do you hav e 6 or more drinks on 1 occasion? Never [facility] Work Phone: How hard is it for y ou to pay for the very basics like food, housing, medical care, and heating Very hard [facility] Work Phone: Do you feel stress - tense, restless, nervous, or anxious, or unable to sleep at night because your mind is troubled all the time - these days [OSQ] Not at all [facility] (I/We) worried shantiyaakov er (my/our) food would run out before (I/we) got money to buy more. Never true [facility] Work Phone: In the past 12 month s, was there a time when you were not able to pay the mortgage or rent on time? No [facility] Start: 03-04-2024 End: 03-23-2024 Alcoholic beverage intake Lifetime non-drinker (finding) [facility] Start: 1960 Sex assigned at Female S [facility] Start: 03-04-2024 Gender identity Identifies as female gender (finding) [facility] Start: 03-04-2024 Sexual orientation Heterosexual (fin ding) [facility] Start: 12-15-2021 Sex Female (finding) [facility] Start: 06-08-2018 Alcohol Alcohol [facility] Start: 06-08-2018 Lives Lives [facility] Start: 06-11-2018 Tobacco Use Tobacco Use [facility] Are you now , , , , never or living with a partner? [facility] NEGATED: Highlighted rowStart: SEBASTIEN History of tobacco use Passive smoker [facility] Medical Equipment Procedure Code Equipment Code Equipment Original Text Equipment Identifier Dates Lead Intrstim Mr camacho 28cm - [id number] Start: 01-28-2023 Interstim X Rech arge Free Neurostimulator - [id number] Start: 01-28-2023 Stent Uret 6fr 2 4cm Wo Gw - [id number] Start: 03-05-2024 Stent Uret 6fr 2 4cm Wo Gw - [id number] Start: 03-05-2024 Stent Uret 6fr 2 4cm Wo Gw - [id number] Start: 03-23-2024 PRAVEEN GOLDMAN LG FDA Sta rt: 12-23-[address] art: 12-23-2017 RELOAD,BLUE 60 FDA Start: 12-23-2017 RELOAD,GOLD 60 FDA Start: 12-23-2017 STAPLER,INTRA CD [id number] ETHICON FDA Start: 12-23-2017 PRAVEEN GOLDMAN LG FDA Sta rt: 12-23-[address] art: 12-23-2017 RELOAD,BLUE 60 FDA Start: 12-23-2017 RELOAD,GOLD 60 FDA Start: 12-23-2017 STAPLER,INTRA CD [id number] ETHICON FDA Start: 12-23-2017 CLIPPRAVEEN LG FDA Sta rt: 12-23-[address] art: 12-23-2017 RELOAD,BLUE 60 FDA Start: 12-23-2017 RELOAD,GOLD 60 FDA Start: 12-23-2017 STAPLER,INTRA CD [id number] ETHICON FDA Start: 12-23-2017 PRAVEEN GOLDMAN LG FDA Sta rt: 12-23-[address] art: 12-23-2017 RELOAD,BLUE 60 FDA Start: 12-23-2017 RELOAD,GOLD 60 FDA Start: 12-23-2017 STAPLER,INTRA CD [id number] ETHICON FDA Start: 12-23-2017 PRAVEEN GOLDMAN LG servtagJOSELYN FDA Sta rt: 12-23-[address] art: 12-23-2017 RELOAD,BLUE 60 FDA Start: 12-23-2017 RELOAD,GOLD 60 FDA Start: 12-23-2017 STAPLER,INTRA CD [id number] ETHICON FDA Start: 12-23-2017 Goals Date Patient Goal Desired Activity /State Personal health goal Functional Status Date Assessment Result Facility 07-10-2024 Total score [AUDIT-C] 0 07/10/19 25 9:41 AM Mariam Roldan LPN [facility] 03-26-2020 Are you deaf, or do you have serious difficulty hearing No 03/26/2020 10:37 AM Mariaelena Mims RN No [facility] 03-26-2020 Are you blind, or do you have serious difficulty seeing, even when wearing glasses No 03/26/2020 10:37 AM Mariaelena Mims RN No [facility] 03-26-2020 Do you have serious difficulty walking or climbing stairs No 03/26/2020 10:37 AM Mariaelena Mims RN No [facility] 03-26-2020 Do you have difficul ty dressing or bathing No 03/26/2020 10:37 AM Mariaelena Mims RN No [facility] 03-26-2020 Because of a physica l, mental, or emotional condition, do you have difficulty doing errands alone such as visiting a physician's office or shopping No 03/26/2020 10:37 AM Mariaelena Mims RN No [facility] c Mental Status Date Assessment Result Facility 12-22-2024 Cognitive function Voice/Name [facility] Work Phone: 03-26-2020 Because of a physica l, mental, or emotional condition, do you have serious difficulty concentrating, remembering, or making decisions No 03/26/2020 10:37 AM Mariaelena Mims RN No [facility] Clinical Notes 07-17-2018 to 01-10-2025 Patient InstructionsJasmyne Day MD - 01/10/2025 8:55 AM EDTPatient Mathew Orosco Jr., MD - 01/09/2025 2:21 PM Peyton Zarate APRN.EMPLOYMENT SERVICES DIRECTOR - 12/27/2024 2:29 PM EDT Note Date & Type Note Facility 01-10-2025 Jasmyne Devlin MD - 01/10/2025 9:20 AM EDT - Continue taking Florinef (fludrocortisone) as prescribed: 2 tablets in the morning and 1 tablet in the evening. - Wear compression stockings every day, thigh-high preferred; pull them up throughout the day to keep them from rolling down. - Aim to drink about 2 liters ( 64 ounces) of fluids daily. - Monitor your blood pressure at home: check while sitting or lying, then again after standing for 3 minutes. - Goal sitting blood pressure: under 140/90 mmHg - Goal standing systolic pressure: above 100 mmHg - Record your readings. - Call the clinic if you regularly see sitting blood pressures above 140/90 mmHg, if you develop headaches or vision changes, or if you feel dizzy or lightheaded again. - When you need a refill of Florinef, contact the office and we will send it to your pharmacy. - Keep your neurology appointment in February as planned. - Return to this clinic for follow-up in July, unless you have concerns sooner. documented in this encounter [facility] 01-10-2025 History of Presen t illness Narrative 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 Patient presents with: Blood Pressure Check: 2 week follow up Recording using [employer] software for draft documentation of the visit was discussed with the patient/authorized parts representative; all questions welcomed and answered. Patient/authorized parts representative agreed to proceed HPI Eren Merchant is a 64 year old female who presents here today for Above Complaints. Orthostatic Hypotension: - Recent increase in Florinef from 0.2 mg daily to 0.2 mg in the morning and 0.1 mg in the evening by Peyton Wray on 01/27. - Prior to medication adjustment, Eren Merchant's systolic BP would drop to 60-90 mmHg upon standing. - Current BP readings: - Mornin-150 mmHg. - Drops 20-40 mmHg upon standing, with initial readings often below 100 mmHg. - After 3 minutes of standing, systolic BP usually rises above 100 mmHg. - No recent episodes of dizziness or lightheadedness. - Eren rarely records BP readings above 140/90 mmHg at home. - Denies headaches, vision changes, chest pain, dyspnea, or leg edema. - Adheres to wearing compression stockings daily. - Consumes approximately 2 liters of water daily. Past medical history, appointments, medications, allergies reviewed. 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 Amantadine Contraindication-Medical Surgical Has renal failure, has not been on but would avoid due to metabolism. Compazine [Prochlor* Contraindication-Medical Surgical This should not be given to people with Parkinson's disease. If not otherwise contraindicated, Zofran should be given instead. Haldol [Haloperidol] Contraindication-Medical Surgical People with Parkinson's disease should not take this or other antipsychotics except Nuplazid, Seroquel, and Clozaril can be prescribed. Phenergan [Prometha* Contraindication-Medical Surgical This should not be given to people with Parkinson's disease. If not otherwise contraindicated, Zofran should be given instead. Reglan [Metoclopram* Contraindication-Medical Surgical This should not be given to people with Parkinson's disease. If not otherwise contraindicated and for nausea, Zofran should be given instead. Zyprexa [Olanzapine] Contraindication-Medical Surgical People with Parkinson's disease should not take this or other antipsychotics except Nuplazid, Seroquel, and Clozaril can be prescribed. Erythromycin Diarrhea Hay Fever [Seasonal* Cough Zyrtec [Cetirizine * Itching Current Medications Current Outpatient Medications on File Prior to Visit Medication Sig fludrocortisone (FLORINEF) 0.1 mg tablet Take 2 tablets in the morning and one table the evening. TRULANCE 3 mg tablet Take 1 tablet by mouth once daily. amitriptyline (ELAVIL) 100 mg tablet Take 1 tablet by mouth daily at bedtime. estradiol (ESTRACE) 0.01 % (0.1 mg/gram) vaginal cream Use 1 g vaginally daily at bedtime for 14 days, THEN 1 g two times a week. pantoprazole DR (PROTONIX) 20 mg tablet Take 1 tablet by mouth once daily. carbidopa-levodopa (SINEMET 25-100) 25-100 mg per tablet Take 1 tablet by mouth three times a day. carbidopa (LODOSYN) 25 mg tab Take 1 tablet by mouth three times a day. mycophenolate Mofetil (CELLCEPT) 500 mg tablet Take 1 tablet by mouth two times a day. levothyroxine (SYNTHROID) 100 mcg tablet Take 1 tablet by mouth once daily. Take on empty stomach calcium carbonate 600 mg-cholecalciferol 400 units 600 [...] Take 1 capsule by mouth once daily. Current Facility-Administered Medications on File Prior to Visit Medication cosyntropin 0.25 mg injection (CORTROSYN) Social History SOCIAL HISTORY[1] Review of Symptoms REVIEW OF SYSTEMS GENERAL: No weight loss, malaise or fevers RESPIRATORY: Negative for cough, hemoptysis, wheezing, COPD, dyspnea or shortness of breath CARDIOVASCULAR: Negative for chest pain, leg swelling, hypertension, CHF or palpitations GI: No nausea, vomiting, or diarrhea SKIN: Negative for lesions, rash, and itching EXAM: Ht 165.1 cm (5' 5) Wt 73.9 kg (163 lb) LMP 01/07/2011 BMI 27.12 kg/m BP w/Orthostatic Vitals Date and Time Orthostatic BP Orthostatic Pulse BP Pulse BP Position BP Site BP Cuff Size 01/10/25 0916 93/62 101 -- -- Standing -- -- 01/10/25 0915 136/88 88 -- -- Supine -- -- 01/10/25 0832 133/81 81 -- -- Sitting -- -- General Appearance: Well appearing, alert, in no acute distress, well-hydrated, well nourished.. Skin: Skin color, texture, turgor normal, no suspicious rashes or lesions. Lungs: Lungs clear to auscultation. No wheezing, rhonchi, rales.. Heart: RRR without murmur, gallop, or rubs. No ectopy. Extremities: No deformities, edema, skin discoloration, clubbing or cyanosis. Good capillary refill. . Health Maintenance List RSV Vaccine(1 - Risk 60-74 years 1-dose series) Never done Cervical Cancer Screening due on 08/24/2019 Advance Directive Discussion due on 05/17/2024 Depression Screening due on 12/27/2024 Anxiety Screening due on 12/27/2024 Influenza Vaccine(1) due on 01/15/2025 Hemoglobin/Hematocrit due on 07/31/2025 Mammogram Screening due on 08/21/2025 Serum Creatinine due on 12/20/2025 Annual PCP Team Chronic Disease Visit due on 01/10/2026 Diabetes Screening due on 12/21/2027 Colorectal Cancer Screening due on 12/23/2027 Lipid Screening due on 01/30/2029 DTaP,Tdap,Td Vaccine(4 - Td or Tdap) due on 03/01/2033 Bone Density Screening Completed Medicare Advantage Annual Wellness Visit Completed Hepatitis C Screening Completed Shingrix Vaccine Completed Pneumococcal Vaccine: 50+ Completed 1. Orthostatic hypotension (I95.1) 2. Dizziness (R42) - Orthostatic hypotension improving with increased Florinef (fludrocortisone) dose (0.2 mg in the morning, 0.1 mg in the evening); no recent dizziness or lightheadedness. - Orthostatic BP measurements show initial drop on standing, but systolic BP >100 mmHg after 3 minutes; no symptoms during in-office orthostatic testing. - Continue current Florinef dose; higher doses may increase risk of hypertension and side effects. - Continue daily use of thigh-high compression stockings; advised to pull them up throughout the day for optimal effect. - Encourage hydration with goal of 2 liters of water daily. - Monitor home BP readings after morning Florinef dose; maintain systolic BP <140 mmHg and diastolic BP <90 mmHg, with systolic BP >100 mmHg. - Advised to report regular BP readings >140/90 mmHg, or any symptoms of high or low BP (headaches, vision changes, dizziness). - Follow-up in July unless symptoms worsen or BP readings become abnormal. 3. Parkinson's disease, unspecified whether dyskinesia present, unspecified whether manifestations fluctuate (HCC) (G20.A1) - Continue management with neurology; next neurology follow-up in February. Jasmyne Day MD [1] Social History Tobacco Use Smoking status: Never Passive exposure: Never Smokeless tobacco: Never Tobacco comments: No one in household smokes. Smoker in childhood home. Vaping Use Vaping status: Never Used Substance Use Topics Alcohol use: Yes Comment: Rarely Drug use: No documented in this encounter [facility] 01-09-2025 Instructions Mathew Yang Jr., MD - 01/09/2025 2:26 PM EDT Counseled patient on increasing fluids, avoiding salt, avoiding caffeine, avoiding large portions of animal fat/meats at one time and increasing citrates in diet. documented in this encounter [facility] 01-09-2025 Note [facility] 01-09-2025 History of Presen t illness Narrative ESTABLISHED PATIENT OFFICE VISIT HPI Eren Merchant is a 64 year old female who presents refer for [...] Stone prevention discussed. No fever. No uti. 01/09/25 - since last seen had bilateral obstructing stones. Had LL with Dr. Bowen. Doing well now. Kub neg today. No fever. No uti. LAB: Creatinine Date Value Ref Range Status 12/20/2024 1.40 (H) 0.58 - 0.96 mg/dL Final No results found for: PSA Glucose, Urine Date Value 08/17/2024 Negative 03/22/2020 Negative mg/dL Bilirubin, Urine (no units) Date Value 08/17/2024 Negative 03/22/2020 Negative Ketones, Urine (no units) Date Value 08/17/2024 Negative 03/22/2020 Negative Specific [place], Ur (no units) Date Value 08/17/2024 1.019 03/22/2020 1.021 Hemoglobin/Blood,Ur Date Value 08/17/2024 3+ 03/22/2020 2+ pH, Urine (no units) Date Value 08/17/2024 6.0 03/22/2020 6.0 Protein, Urine (no units) Date Value 08/17/2024 1+ 03/22/2020 2+ Urobilinogen, Urine (EU) Date Value 04/13/2011 normal Nitrites (no units) Date Value 08/17/2024 Negative 03/22/2020 Negative Leukocytes (no units) Date Value 04/13/2011 large WBC, Urine Date Value 08/17/2024 >20 /HPF 03/22/2020 0-5 /HPF Color/Appearance (comment:) Date Value 04/13/2011 tea/cloudy MEDICATIONS: fludrocortisone (FLORINEF) 0.1 mg tablet^Take 2 tablets in the morning and one table the evening.^Disp: 270 tablet^Rfl: 0 TRULANCE 3 mg tablet^Take 1 tablet by mouth once daily.^Disp: ^Rfl: amitriptyline (ELAVIL) 100 mg tablet^Take 1 tablet by mouth daily at bedtime.^Disp: 30 tablet^Rfl: 5 estradiol (ESTRACE) 0.01 % (0.1 mg/gram) vaginal cream^Use 1 g vaginally daily at bedtime for 14 days, THEN 1 g two times a week.^Disp: 64 g^Rfl: [address] (PROTONIX) 20 mg tablet^Take 1 tablet by mouth once daily.^Disp: ^Rfl: carbidopa-levodopa (SINEMET 25-100) 25-100 mg per tablet^Take 1 tablet by mouth three times a day.^Disp: 270 tablet^Rfl: 3 carbidopa (LODOSYN) 25 mg tab^Take 1 tablet by mouth three times a day.^Disp: 270 tablet^Rfl: 3 mycophenolate Mofetil (CELLCEPT) 500 mg tablet^Take 1 tablet by mouth two times a day.^Disp: 60 tablet^Rfl: 5 levothyroxine (SYNTHROID) 100 mcg tablet^Take 1 tablet by mouth once daily. Take on empty stomach^Disp: 90 tablet^Rfl: 3 calcium carbonate 600 mg-cholecalciferol 400 [...] Papanicolaou smear of vagina and vaginal HPV CKD (chronic kidney disease) Diverticulitis of sigmoid colon 12/07/2009 ACUTE Esophageal dysmotility 07/31/2020 Manometry 06/21/2020. GERD (gastroesophageal reflux disease) 10/01/2017 Hives Intramural leiomyoma of uterus Malnutrition of moderate degree ([facility]) 06/15/2018 Nephrolithiasis NSIP (nonspecific interstitial pneumonia) ([facility]) Obesity, Class I, BMI 30-34.9 E66.9 09/03/2017 Osteopenia Overactive bladder Parkinson disease ([facility]) Primary osteoarthritis of first carpometacarpal joint of right hand 08/05/2017 Added automatically from request for surgery [id number] Rectal bleed 09/05/2014 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, 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 Unspecified hypothyroidism FAMILY HISTORY Problem Relation Age of Onset Hypertension Mother Thyroid Mother Heart Father Hypertension Father COPD Father Smoker. Heart Maternal Grandmother Stroke Maternal Grandmother Cancer Maternal Grandmother COLON Cancer Paternal Grandmother STOMACH Anesthesia Problems No Family History SOCIAL HISTORY SOCIAL HISTORY[1] PHYSICAL EXAMINATION General appearance: Well appearing, alert, [...] prior Stone prevention Mathew Yang Jr, MD 01/09/2025 [1] Social History Tobacco Use Smoking status: Never Passive exposure: Never Smokeless tobacco: Never Tobacco comments: No one in household smokes. Smoker in childhood home. Vaping Use Vaping status: Never Used Substance Use Topics Alcohol use: Yes Comment: Rarely Drug use: No documented in this encounter [facility] 01-01-2025 Radiology Diagnostic study note [facility] Imaging Services [address] [place] [address] [id number] Abdomen Single View MR#: [id number] Acct: [id number] Name: EREN MERCHANT Rep #: [id number] : 1960 F 64 From: Umang Ricci MD PCP: Dr. Gonzalo Day MD Status: REG CLI Study:Abdomen Single View Date of Exam: 12/29/24 Exam# [id number] Ordering Dr: Hilary Soto PROCEDURE: ABDOMEN SINGLE VIEW 12/29/2024 REASON FOR EXAM: CONSTIPATATION, IMPACTION TECHNIQUE: ABDOMEN SINGLE VIEW COMPARISON: None. FINDINGS: There is a nonobstructive bowel gas pattern. There is stool noted throughout the colon and in the rectal vault. There are no abnormal soft tissue calcifications or radiopaque foreign bodies. There is a bladder stimulator with the generator in the left buttock. There is mild multilevel degenerative disc disease of the lumbar spine. RAD/Abdomen Single View IMPRESSION: Mild constipation. Other findings as noted. Reading Location: [id number] CC: Dr. Gonzalo Day MD; KAUSHAL Alas ~ Upper Shaper: Signed [facility] Work Phone: 12-29-2024 Progress note [facility] 12-27-2024 Note [facility] 12-27-2024 History of Presen t illness Narrative This is a 64 year old female who presents today with: Eren Merchant is a 64-year-old female with a history of hypotension, presenting for follow-up. HISTORY OF PRESENT ILLNESS: Hypotension: - Chronic issues hypotension with more recent with orthostatic hypotension. exacerbation. - Initiated on Florinef by Dr. Day on 11/29, starting with 1 tablet daily, increased to 2 tablets daily by Cyndi two weeks ago. - Takes both doses in the morning. - Monitors blood pressure at home, recording readings before and after medication administration. - Noted significant drops in blood pressure upon standing, anywhere from SBP of 60-90. - Reports improvement, but not resolution, in lightheadedness since starting Florinef; no falls since August. - Uses a walker for stability. - Wears compression socks daily. - Attempts to drink 2 liters of water daily. - Experiences lightheadedness in the sun, relieved by shade and hydration. 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, 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 Unspecified hypothyroidism PAST SURGICAL HISTORY Procedure Laterality Date ARTHRP INTERCARPAL/CARP/MTCRPL JT INTERPOSITION Right 10/13/2017 Right thumb CMC arthroplasty with [...] UNI/BI Tubal ligation LX PARTIAL COLECTOMY 12/23/2017 [facility] lap lysis of adhesions, left oopherectomy, [...] and lower lung for pulmonary infiltrates ALLERGIES Abilify [Aripiprazole], Amantadine, Compazine [Prochlorperazine], Haldol [Haloperidol], Phenergan [Promethazine], Reglan [Metoclopramide], Zyprexa [Olanzapine], Erythromycin, Hay Fever [Seasonal Allergies], and Zyrtec [Cetirizine Hcl] MEDICATIONS Current Outpatient Medications Medication Sig fludrocortisone (FLORINEF) 0.1 mg tablet Take 2 tablets in the morning and one table the evening. TRULANCE 3 mg tablet Take 1 tablet by mouth once daily. amitriptyline (ELAVIL) 100 mg tablet Take 1 tablet by mouth daily at bedtime. estradiol (ESTRACE) 0.01 % (0.1 mg/gram) vaginal cream Use 1 g vaginally daily at bedtime for 14 days, THEN 1 g two times a week. pantoprazole DR (PROTONIX) 20 mg tablet Take 1 tablet by mouth once daily. carbidopa-levodopa (SINEMET 25-100) 25-100 mg per tablet Take 1 tablet by mouth three times a day. carbidopa (LODOSYN) 25 mg tab Take 1 tablet by mouth three times a day. mycophenolate Mofetil (CELLCEPT) 500 mg tablet Take 1 tablet by mouth two times a day. levothyroxine (SYNTHROID) 100 mcg tablet Take 1 tablet by mouth once daily. Take on empty stomach calcium carbonate 600 mg-cholecalciferol 400 units 600 [...] Take 1 capsule by mouth once daily. Current Facility-Administered Medications Medication Dose Route Frequency cosyntropin 0.25 mg injection (CORTROSYN) 0.25 mg INTRAMUSCULAR PRN FAMILY HISTORY Problem Relation Age of Onset Hypertension Mother Thyroid Mother Heart Father Hypertension Father COPD Father Smoker. Heart Maternal Grandmother Stroke Maternal Grandmother Cancer Maternal Grandmother COLON Cancer Paternal Grandmother STOMACH Anesthesia Problems No Family History SOCIAL HISTORY[1] REVIEW OF SYSTEMS Constitutional: (+) heat intolerance Eyes: (-) visual floaters Cardiovascular: (-) chest pain, (-) palpitations, (-) peripheral edema Respiratory: (-) shortness of breath Genitourinary: (+) urinary frequency Neurological: (+) lightheadedness, (-) dizziness, (-) syncope, (-) falls EXAM: BP 114/82 Pulse 82 Resp 16 LMP 01/07/2011 SpO2 100% PHYSICAL EXAM: General Appearance: Well appearing, alert, in no acute distress, well-hydrated, well nourished. Skin: Skin color, texture, turgor normal, no suspicious rashes or lesions. Head: Normocephalic, no masses, lesions, tenderness or abnormalities. Eyes: Anicteric sclera. Extraocular movements are intact. . Lungs: Lungs clear to auscultation. No wheezing, rhonchi, rales.. Heart: RRR without murmur, gallop, or rubs. No ectopy. Neurologic: Gait normal with walker. ASSESSMENT/PLAN 1. Orthostatic hypotension (I95.1) - Symptoms improved since restarting fludrocortisone on 11/29 and increasing dose to 2 tablets daily; still experiencing significant orthostatic drops, but less frequent lightheadedness and no falls since August. - Increase fludrocortisone to 2 tablets in the morning and 1 tablet in the evening. - Continue compression stockings and maintain adequate hydration. - Educated on orthostatic hypotension, including the importance of hydration, use of compression stockings, and medication adjustments. - Follow-up in a few weeks to reassess symptoms and blood pressure readings. 2. Parkinson's disease, unspecified whether dyskinesia present, unspecified whether manifestations fluctuate (HCC) (G20.A1) As above. Discussed treatment plan and patient voices understanding. Patient's questions answered appropriately. Medications and potential side effects were discussed and patient voices understanding. Return to the office as scheduled or as needed for worsening/no improvement. Peyton Diaz APRN.EMPLOYMENT SERVICES DIRECTOR Recording using [employer] software for draft documentation of the visit was discussed with the patient/authorized parts representative; all questions welcomed and answered. Patient/authorized parts representative agreed to proceed [1] Social History Tobacco Use Smoking status: Never Passive exposure: Never Smokeless tobacco: Never Tobacco comments: No one in household smokes. Smoker in childhood home. Vaping Use Vaping status: Never Used Substance Use Topics Alcohol use: Yes Comment: Rarely Drug use: No documented in this encounter [facility] 12-27-2024 Instructions Peyton Diaz APRN.CNP - 12/27/2024 2:25 PM EDT Increase the florinef to pills in the morning and one in the evening. Recheck in 2 weeks. documented in this encounter [facility] 12-22-2024 History and physical note Note Date/Time December 22, 2024 12:26pm [facility] Medical Records Department [address] [place] [address] History & Physical Exam 12/22/24 1224 MR#: [id number] Acct: [id number] Name: EREN MERCHANT Rep #:[id number] : 1960 64 From: Aditya Friend DO PCP: Dr. Gonzalo Day MD [place] :[place] [facility] [place]: [place] [address] HPI - General General Date of Admission: 12/22/24 Date of Service: 12/22/24 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: Abdominal pain HPI Narrative EREN MERCHANT, is a 64 F who presents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: abd pain BGI established March 2024 after [facility] hospitalization for seizure like activity. 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 Pt on Cellcept and prednisone for interstitial lung disease. Found to have esophageal thickening on imaging. Underwent EGD showing esophageal candidiasis stated on Diflucan and nystatin. EGD 24; severe candidiasis w/ no bleeding, LA Grade D acute and erosive esophagitis with no bleeding, gastritis and normal duodenum. with recommendationfor f/u in 8 weeks. OV 11..25 Pt feeling better on anti fungal medications but since discontinuingit she has had some symptoms. Endorses burning, globus sensation and cough. Start Fluconazole 200 mg daily for 14 days. Scheduled for EGD EGD 06.06.24;- Normal esophagus. Biopsied. - Small hiatal hernia. - Normal second portion of the duodenum. OV 2..25 Pt doing well today. Reviewed EGD results Swallowing improved after treatment with fluconazole. Last OV 10.11.25 Pt having burning in her esophagus for a few weeks now. It does not feel like when she had esophageal candidiasis. She does not take a PPI. Overthe past few months pt has been having lower abdominal pain and constipation. 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 She started taking Colace 200 mg for three days which did not produce a bmright away. The pain does get better after she has a bm *Start Pantoprazole 20 mg daily, start colace 200 mg daily OV 6.25.25 Pt continues to have constipation while taking colace. She is having a bm about once a week. Her bm are hard and small balls. She will have to digitally disimpact on some occasions. She has lower abd pain that is relieved after a bm. She feels this is related to her bladder as well. New linaclotide (Linzess) 72 mcg PO QAM 30 caps 1RF PFSH Medical History Kidney stones Thyroid disease Uses wheelchair Back pain Parkinson's disease Orthostatic hypotension History of steroid therapy Wears glasses Post-menopausal Cancer Arthritis History of renal disease DVT (deep venous thrombosis) Easy bruising Syncope Dietary restriction History of diverticulitis Interstitial emphysema of lung Non-smoker History of edema Overactive bladder Intramural leiomyoma of uterus Esophageal dysmotility Abnormal Pap smear of vagina and vaginal HPV Positive P-ANCA titer Hypothyroid Home Medications ?Medication ?Instructions ?Recorded ?Last Taken ?Type aspirin 81 mg chewable tablet 81 mg PO DAILY@0800 06/1712/21/24 History cholecalciferol (vitamin D3) 25 1,000 unit PO BID 06/1712/21/24 History mcg (1,000 unit) tablet (Vitamin D3) mycophenolate mofetil 500 mg 500 mg PO BID 03/04/24 History tablet (CellCept) levothyroxine 100 mcg capsule 100 mcg PO QDAY 04/06/24 12/22/24 History ondansetron 4 mg disintegrating 4 mg PO Q8H PRN nausea and vomiting 04/06/24 Unknown History tablet Lactobacillus acidophilus 250 500 mmu cells PO DAILY 0 06/02/24 12/21/24 History million cell capsule (Probiotic Acidophilus) amitriptyline 50 mg tablet 100 mg PO QHS 07/07/2412/08 History carbidopa 25 mg-levodopa 100 mg 1 tab PO TID 10/11/24 12/21/24 History tablet (Sinemet) pantoprazole 20 mg tablet,delayed 20 mg PO QDAY #30 ta bs 10/11/24 12/21/24 Rx release carbidopa 25 mg tablet 25 mg PO TID 11/08/24 History plecanatide 3 mg tablet (Trulance) 3 mg PO QDAY #30 ta bs 11/21/24 12/21/24 Rx fludrocortisone 0.1 mg tablet 0.2 mg PO DAILY 12/19/24 12/21/24 History multivitamin (Daily Multi-Vitamin 1 tab PO DAILY 12/1912/21/24 History tablet) Allergy/AdvReac Type Severity Reaction Status Date / Time cetirizine (From Rust) Allergy Intermediate Rash Verified 12/22/24 12:18 erythromycin base AdvReac Intermediate Diarrhea Verified 12/22/24 12:18 azithromycin AdvReac Mild Diarrhea Verified 12/22/24 12:18 Family History Mother Thyroid disorder Hypertension Father Heart disease Hypertension COPD (chronic obstructive pulmonary disease) Surgical History S/P laparoscopic appendectomy Hx of colonoscopy History of esophagogastroduodenoscopy (EGD) Hx of tubal ligation Hx of bladder repair surgery H/O thymectomy History of spinal fusion History of cholecystectomy History of colon resection Social History Smoking Status: Never smoker alcohol intake: current alcohol intake frequency: holidays/special occasions only ROS Constitutional Constitutional: Denies fatigue, fever(s), poor appetite, weight gain or weight loss Gastrointestinal Gastrointestinal: Denies belching, bloating, change in bowel habits, change in stool character, chewing difficulty, coffee ground emesis, constipation, cramping, diarrhea, dyspepsia, dysphagia, early satiety, excessive flatus, fecalincontinence, heartburn, hematemesis, hematochezia, hemorrhoids, loose stools, melena, nausea, odynophagia, rectal bleeding, tenesmus, vomiting or weight changes Vital Signs Vital Signs Vital Signs: 12/22/24 12:21 12/22/24 12:21 Temperature 98.6 F Temperature Source Temporal Pulse Rate 62 Respiratory Rate 17 Respiratory Pattern Normal Blood Pressure 117/81 H Blood Pressure Mean 93 Blood Pressure Source Monitor Blood Pressure Position Semi-Fowlers Blood Pressure Location Right Arm Pulse Ox 100 Oxygen Delivery Method Room Air Weight Weight: 156 lb 8.451 oz Body Mass Index (BMI) 26.0 Physical Exam Const alert, oriented x3, no apparent distress and healthy appearing General Appearance: cooperative GI normal to inspection, nondistended, normoactive bowel sounds, soft to palpation,non-tender and non-distended Percussion: normal to percussion Rectal Exam: deferred Assessment & Plan Assessment/Plan (1) Irritable bowel syndrome with constipation: (2) Constipation: (3) Abdominal pain: PLAN: Assessment and Plan Assessment and Plan (1) Constipation: Status: Acute Plan: Eren is a 64 yo female pt here today for f/u regarding her constipation. Pt hasbeen taking colace with no relief. her last colonoscopy was in 2018. She will undergo repeat colonoscopy at this time. I have started her on Linzess 72 mcg daily. -Colonoscopy -Start Linzess 72 mcg daily -f/u after procedure (2) Abdominal pain: Status: Acute Medications: 12/22/24 1226 <Electronically signed by Aditya Cota DO> Cosigner Signature (if applicable): CC: Dr. Gonzalo Day MD; Aditya Cota DO~ Signed [facility] Work Phone: [phone] 206-736208-08-2025 Consult note [facility] Medical Records Department [address] [place] [id number] Anesthesia Postop Eval I 12/22/24 1358 MR#: [id number] Acct: [id number] Name: EREN MERCHANT Rep #:[id number] : 1960 64 From: Ana Pardo CRNA PCP: Dr. Gonzalo Day MD Status :[place] [facility] [place] Race: C Location: [place] [address] Anesthesia: Postop Eval I Current Vital Signs Temperature: 97.9 F Pulse Rate: 84 Blood Pressure: 123/55 Respiratory Rate: 20 Pulse Ox: 100 Assessment Airway patent: Yes Spontaneous unlabored respirations: Yes nausea: No Vomiting: No Anesthesia Complication: No Fluid Hydration Crystalloid volume administer (ml): 200 Total IV fluid infused: 200 Progress Note Anesthesia document: Postop Eval 1 completed: Yes 12/22/24 1359 a KNIFE OPERATOR> Date _ Ana Pardo KNIFE OPERATOR Cosigner Signature: Date CC: ~ Signed [facility]08-08-2025 Procedure note [facility] Medical Records Department [address] [place] [address] Colonoscopy Report MR#: [id number] Acct: [id number] Name: EREN MERCHANT Rep #:[id number] : 1960 64 From: Aditya Cota DO PCP: Dr. Gonzalo Day MD Status :[facility] Patient Name: Eren Merchant Procedure Date: 12/22/2024 1:36 PM Date of : 1960 Age: 64 Procedure: Colonoscopy Indications: Screening for colorectal malignant neoplasm Providers: Aditya Cota DO Referring MD: Gonzalo Day Medicines: Monitored Anesthesia Care Patient Profile: This is a 64 year old female. Refer to note in patient chart for documentation of history and physical. Last Colonoscopy: several years ago. Complications: No immediate complications. Procedure: Pre-Anesthesia Assessment: - Prior to the procedure, a History and Physical was performed, and patient medications and allergies were reviewed. The patient is competent. The risks and benefits of the procedure and the sedation options and risks were discussed with the patient. All questions were answered and informed consent was obtained. Patient identification and proposed procedure were verified by the physician in the pre-procedure area. Mental Status Examination: alert and oriented. Airway Examination: normal oropharyngeal airway and neck mobility. Respiratory Examination: clear to auscultation. CV Examination: normal. Prophylactic Antibiotics: The patient does not require prophylactic antibiotics. Prior Anticoagulants: The patient has taken no anticoagulant or antiplatelet agents except for NSAID medication. ASA Grade Assessment: II - A patient with mild systemic disease. After reviewing the risks and benefits, the patient was deemed in satisfactory condition to undergo the procedure. The anesthesia plan was to use monitored anesthesia care (MAC). Immediately prior to administration of medications, the patient was re-assessed for adequacy to receive sedatives. The heart rate, respiratory rate, oxygen saturations, blood pressure, adequacy of pulmonary ventilation, and response to care were monitored throughout the procedure. The physical status of the patient was re-assessed after the procedure. After I obtained informed consent, the scope was passed under direct vision. Throughout the procedure, the patient's blood pressure, pulse, and oxygen saturations were monitored continuously. The Colonoscope was introduced through the anus and advanced to the hepatic flexure. The colonoscopy was performed without difficulty. The patient tolerated the procedure well. The quality of the bowel preparation was 90 percent obscured. Anatomical landmarks were photographed. Scope In: 1:47:21 PM Scope Out: 1:50:41 PM Total Procedure Duration Time 0 hours 3 minutes 20 seconds Findings: The perianal and digital rectal examinations were normal. Copious quantities of semi-liquid semi-solid solid stool was found in the entire colon, precluding visualization. Lavage of the area was performed using copious amounts of sterile water, resulting in incomplete clearance with continued poor visualization. Impression: - Stool in the entire examined colon. - No specimens collected. Recommendation: - Discharge patient to home. - Resume previous diet. - Continue present medications. - Repeat colonoscopy because the bowel preparation was poor. Procedure Code(s): --- Professional --- 39821, 53, Colonoscopy, flexible; diagnostic, including collection of specimen(s) by brushing or washing, when performed (separate procedure) CPT copyright 2021 [employer]. All rights reserved. The codes documented in this report are preliminary and upon drum stock clerk review may be revised to meet current compliance requirements. Aditya Cota DO 12/22/2024 1:55:32 PM This report has been signed electronically. Number of Addenda: 0 Note Initiated On: 12/22/2024 1:36 PM 12/22/24 1355 Date _ Aditya Bates Signature: Date (if indicated) CC: Dr. Gonzalo Day MD; Aditya Cota DO ~ Date Dictated: 12/22/24 133 Date Transcribed: Upper Shaper: RF Signed [facility]08-08-2025 Procedure note [facility] Medical Records Department [address] [place] [address] Provation Physician Letter MR#: [id number] Acct: [id number] Name: EREN MERCHANT Rep #:[id number] : 1960 64 From: Aditya Cota DO PCP: Dr. Gonzalo Day MD Status :[facility] 12/22/2024 Gonzalo Day Re : Colonoscopy procedure for Eren Merchant Dear Brown This procedure was performed on Sunday, December 22, 2024. My impressions and recommendations are as follows: Impressions : - Stool in the entire examined colon. - No specimens collected. Recommendations : - Discharge patient to home. - Resume previous diet. - Continue present medications. - Repeat colonoscopy because the bowel preparation was poor. My findings are described in the full procedure note, which is enclosed. If I can be of further assistance, please feel free to contact me at . Sincerely, Aditya Cota DO 12/22/2024 1:55:32 PM This report has been signed electronically. 12/22/24 1355 Date _ Aditya Cota DO Cosigner Signature: Date (if indicated) CC: Dr. Gonzalo Day MD; Aditya Cota DO ~ Date Dictated: 12/22/241335 Date Transcribed: Upper Shaper: RF Signed [facility]08-08-2025 Consult note [facility] Medical Records Department [address] [place] [address] Pre-Anesthesia Evaluation 12/22/24 1306 MR#: [id number] Acct: [id number] Name: EREN MERCHANT Rep #:[id number] : 1960 64 From: Estevan Crowder MD PCP: Dr. Gonzalo Day MD Status :REG [facility] Y Race: C Location: [place] [address] ASA Classification* ASA Classification ASA Classification: 3 Assessment & Plan Anesthesia* Anesthesia Assessment Anesthesia Assessment: Discussed sedation and/or anesthesia options, risks, benefits, and alternatives with patient/parents/legal guardian/POA. Questions invited. The patient/parents/legal guardian/POA seems to understand and agrees to proceedwith anesthesia plan. Reviewed the physical assessment, medical history, allergy history and patient home medications list prior to surgery/procedure/anesthetic and documented any changes. Performed airway and anesthesia risk assessments. Anesthesia Type Anesthesia Type: MAC History Source History Obtained from:: Patient and Chart Anesthesia Focused Assessment* Temperature: 98.6 F Pulse Rate: 62 Blood Pressure: 117/81 Respiratory Rate: 17 Pulse Ox: 100 Oxygen Delivery Method: Room Air Airway Assessment Mouth opens: >3 cm Mallampati Score: III Teeth Condition: Caps/Crowns (Patient has several crowns. They are all tight.) Neck Range of motion (ROM): Full ROM Labs Anesthesia Preop lab: CBC WBC 16.9 K/mm3 (4.4-11.0) H 03/04/24 08:20 4 RBC 4.57 M/mm3 (4.2-5.4) 03/04/24 08:20 03/04/24 Hgb 11.6 g/dL (12.0-15.0) L 03/04/24 08:20 4 Hct 37.6 % (37-47) 03/04/24 08:20 03/04/24 Plt Count 324 K/mm3 (150-450) 03/04/24 08:20 03/04/24 CHEMISTRY Potassium 3.8 mmol/L (3.5-5.1) 03/04/24 08:20 03/04/24 Sodium 134 mmol/L (136-145) L 03/04/24 08:20 03/04/24 Magnesium 2.4 mg/dL (1.6-2.6) 03/03/24 14:20 03/03/24 Phosphorus 2.7 mg/dL (2.5-4.9) 12/26/17 05:40 12/26/17 BUN 61 mg/dL (7-18) H 03/04/24 08:20 03/04/24 Creatinine 2.60 mg/dL (0.55-1.02) H 03/04/24 08:20 Glucose 104 mg/dL (74-106) 03/04/24 08:20 03/04/24 TSH 2.500 uIU/mL (0.358-3.740) 03/03/24 14:20 02/14 01/07 COAG Pre-Assessment Diagnosis/Proposed Procedure Planned Operative Procedure(s): COLONOSCOPY Anesthesia History Anesthesia History - multicultural internship: Anesthesia History - multicultural internship Hx Hospitalization Yes: 03/2024- 7 DAYS, [facility]. 12/19/24 12:42 FALLS, KIDNEY STONES, ETC Any Problems With Anesthesia No 12/19/24 12:42 Cholinesterase deficiency No 12/19/24 12:42 You/Your Family Experience No 12/19/24 12:42 fever (hyperthermia) with Relationship Recent Exposure to Contagious No 12/22/24 12:21 Disease Does patient have nerve No 12/19/24 12:42 stimulator Patient instructed to have device shut off --Does patient have Pacemaker No 12/22/24 12:21 or ICD? When Was Last Pacemaker Check QUESTION #4 FULL TEXT: You/Your Family Experience fever (hyperthermia) with Anesthesia Last Oral Intake Last Oral intake: Last Oral Intake NPO since 09:00 12/22/24 12:21 Meds taken in AM with sips of Yes 12/22/24 12:21 water? Meds patient instructed to take am of surgery Any additional information?: Yes NPO since: 09:00 (Patient finished prep at 9 AM.) Meds taken in AMwith sips of water?: Yes Meds patient instructed to take am of surgery: Levothyroxine PONV PONV - multicultural internship: PONV - multicultural internship Female Yes 12/19/24 12:42 HX of Motion Sickness No 12/19/24 12:42 HX of N/V After Surgery No 12/19/24 12:42 Non-Smoker Yes 12/19/24 12:42 Duration of Surgery greater No 12/19/24 12:42 than 60 minutes Number of Risk Factors 2 12/19/24 12:42 PONV Score Moderate Risk 12/19/24 12:42 Height & Weight Height & Weight: Anesthesia: Height & Weight Height 5 ft 5 in 12/22/24 12:21 Weight: 71 kg 12/22/24 12:21 Body Mass Index (BMI) 26.0 12/22/24 12:21 Respiratory Assessment Respiratory Assessment - multicultural internship: Respiratory Tract Infection Hx - 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 Has anyone observed you stop No 12/19/24 12:42 breathing during sleep? STOP Results Negative 12/19/24 12:42 QUESTION #5 FULL TEXT : Do you snore loudly (louder than talking or can be heard through closeddoors)? 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 Specify any problems Hx of Preganancy in last 3 No 12/19/24 12:42 Months Nurse Filling Out Transfusion [email or web address] 12/19/24 12:42 & Questions: Date: 12/19/24 12/19/24 12:42 Time: 12:44 12/19/24 12:42 Patient unable to answer at this time (ie. 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 internship: /Reproductive Hx- multicultural internship Hx Now Gestational Age (in weeks): EDC: Hx Hx Para Hx Section SAB No 06/02/24 12:12 Active Medications Active Medications: Current Medications Generic Name Dose Route Start Last Admin Trade Name Freq PRN Reason Stop Dose Admin Lactated Ringer's 1,000 mls @ 15 mls/hr 12/22/24 12:00 12/22/24 12:20 IV 15 mls/hr .Q48H SHANTA Administration PFSH Medical History Kidney stones Thyroid disease Uses wheelchair Back pain Parkinson's disease Orthostatic hypotension History of steroid therapy Wears glasses Post-menopausal Cancer Arthritis History of renal disease DVT (deep venous thrombosis) Easy bruising Syncope Dietary restriction History of diverticulitis Interstitial emphysema of lung Non-smoker History of edema Overactive bladder Intramural leiomyoma of uterus Esophageal dysmotility Abnormal Pap smear of vagina and vaginal HPV Positive P-ANCA titer Hypothyroid Home Medications ?Medication ?Instructions ?Recorded ?Last Taken ?Type aspirin 81 mg chewable tablet 81 mg PO DAILY@0800 06/1712/21/24 History cholecalciferol (vitamin D3) 25 1,000 unit PO BID 06/1712/21/24 History mcg (1,000 unit) tablet (Vitamin D3) mycophenolate mofetil 500 mg 500 mg PO BID 03/04/24 History tablet (CellCept) levothyroxine 100 mcg capsule 100 mcg PO QDAY 04/06/24 12/22/24 History ondansetron 4 mg disintegrating 4 mg PO Q8H PRN nausea and vomiting 04/06/24 Unknown History tablet Lactobacillus acidophilus 250 500 mmu cells PO DAILY 0 06/02/24 12/21/24 History million cell capsule (Probiotic Acidophilus) amitriptyline 50 mg tablet 100 mg PO QHS 07/07/2412/08 History carbidopa 25 mg-levodopa 100 mg 1 tab PO TID 10/11/24 12/21/24 History tablet (Sinemet) pantoprazole 20 mg tablet,delayed 20 mg PO QDAY #30 ta bs 10/11/24 12/21/24 Rx release carbidopa 25 mg tablet 25 mg PO TID 11/08/24 History plecanatide 3 mg tablet (Trulance) 3 mg PO QDAY #30 ta bs 11/21/24 12/21/24 Rx fludrocortisone 0.1 mg tablet 0.2 mg PO DAILY 12/19/24 12/21/24 History multivitamin (Daily Multi-Vitamin 1 tab PO DAILY 12/1912/21/24 History tablet) Allergy/AdvReac Type Severity Reaction Status Date / Time cetirizine (From Rust) Allergy Intermediate Rash Verified 12/22/24 12:18 erythromycin base AdvReac Intermediate Diarrhea Verified 12/22/24 12:18 azithromycin AdvReac Mild Diarrhea Verified 12/22/24 12:18 Family History Mother Thyroid disorder Hypertension Father Heart disease Hypertension COPD (chronic obstructive pulmonary disease) Surgical History S/P laparoscopic appendectomy Hx of colonoscopy History of esophagogastroduodenoscopy (EGD) Hx of tubal ligation Hx of bladder repair surgery H/O thymectomy History of spinal fusion History of cholecystectomy History of colon resection Social History Smoking Status: Never smoker alcohol intake: current alcohol intake frequency: holidays/special occasions only Review of Systems (Anesthesia) ROS Narrative System reviewed and no additional complaints, except as documented. 12/22/24 1317 chino BHATT> Date _ Estevan Crowder MD Cosigner Signature: Date CC: ~ Signed [facility]08-08-2025 History and physical note [facility] Medical Records Department [address] [place] [address] History & Physical Exam 12/22/24 1224 MR#: [id number] Acct: [id number] Name: EREN MERCHANT Rep #:[id number] : 1960 64 From: [facility] DO PCP: Dr. Gonzalo Day MD Status :[facility] Location: [place] [address] HPI - General General Date of Admission: 12/22/24 Date of Service: 12/22/24 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: Abdominal pain HPI Narrative EREN MERCHANT, is a 64 F who presents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: abd pain BGI established March 2024 after [facility] hospitalization for seizure like activity. 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 Pt on Cellcept and prednisone for interstitial lung disease. Found to have esophageal thickening on imaging. Underwent EGD showing esophageal candidiasis stated onDiflucan and nystatin. EGD 03.07.24; severe candidiasis w/ no bleeding, LA Grade D acute and erosive esophagitis with no bleeding, gastritis and normal duodenum. with recommendationfor f/u in 8 weeks. OV 04.06.25 Pt feeling better on anti fungal medications but since discontinuingit she has had somesymptoms. Endorses burning, globus sensation and cough. Start Fluconazole 200 mg daily for 14 days.Scheduled for EGD EGD 06.06.24;- Normal esophagus. Biopsied. - Small hiatal hernia. - Normal second portion of the duodenum. OV 2..25 Pt doing well today. Reviewed EGD results Swallowing improved after treatment with fluconazole. Last OV 10.11.25 Pt having burning in her esophagus for a few weeks now. It does not feel like when she had esophageal candidiasis. She does not take a PPI. Overthe past few months pt has been having lower abdominal pain and constipation. 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 She started taking Colace 200 mg for three days which did not produce a bmrightaway. The pain does get better after she has a bm *Start Pantoprazole 20 mg daily, start colace 200 mg daily OV 6.25 Pt continues to have constipation while taking colace. She is having a bm about once a week. Her bm are hard and small balls. She will have to digitally disimpact on some occasions. She has lower abd pain that is relieved after a bm. She feels this is related to her bladder as well. New linaclotide (Linzess) 72 mcg PO QAM 30 caps 1RF PFSH Medical History Kidney stones Thyroid disease Uses wheelchair Back pain Parkinson's disease Orthostatic hypotension History of steroid therapy Wears glasses Post-menopausal Cancer Arthritis History of renal disease DVT (deep venous thrombosis) Easy bruising Syncope Dietary restriction History of diverticulitis Interstitial emphysema of lung Non-smoker History of edema Overactive bladder Intramural leiomyoma of uterus Esophageal dysmotility Abnormal Pap smear of vagina and vaginal HPV Positive P-ANCA titer Hypothyroid Home Medications ?Medication ?Instructions ?Recorded ?Last Taken ?Type aspirin 81 mg chewable tablet 81 mg PO DAILY@0800 06/1712/21/24 History cholecalciferol (vitamin D3) 25 1,000 unit PO BID 06/1712/21/24 History mcg (1,000 unit) tablet (Vitamin D3) mycophenolate mofetil 500 mg 500 mg PO BID 03/04/24 History tablet (CellCept) levothyroxine 100 mcg capsule 100 mcg PO QDAY 04/06/24 12/22/24 History ondansetron 4 mg disintegrating 4 mg PO Q8H PRN nausea and vomiting 04/06/24 Unknown History tablet Lactobacillus acidophilus 250 500 mmu cells PO DAILY 0 06/02/24 12/21/24 History million cell capsule (Probiotic Acidophilus) amitriptyline 50 mg tablet 100 mg PO QHS 07/07/2412/08 History carbidopa 25 mg-levodopa 100 mg 1 tab PO TID 10/11/24 12/21/24 History tablet (Sinemet) pantoprazole 20 mg tablet,delayed 20 mg PO QDAY #30 ta bs 10/11/24 12/21/24 Rx release carbidopa 25 mg tablet 25 mg PO TID 11/08/24 History plecanatide 3 mg tablet (Trulance) 3 mg PO QDAY #30 ta bs 11/21/24 12/21/24 Rx fludrocortisone 0.1 mg tablet 0.2 mg PO DAILY 12/19/24 12/21/24 History multivitamin (Daily Multi-Vitamin 1 tab PO DAILY 12/1912/21/24 History tablet) Allergy/AdvReac Type Severity Reaction Status Date / Time cetirizine (From Rust) Allergy Intermediate Rash Verified 12/22/24 12:18 erythromycin base AdvReac Intermediate Diarrhea Verified 12/22/24 12:18 azithromycin AdvReac Mild Diarrhea Verified 12/22/24 12:18 Family History Mother Thyroid disorder Hypertension Father Heart disease Hypertension COPD (chronic obstructive pulmonary disease) Surgical History S/P laparoscopic appendectomy Hx of colonoscopy History of esophagogastroduodenoscopy (EGD) Hx of tubal ligation Hx of bladder repair surgery H/O thymectomy History of spinal fusion History of cholecystectomy History of colon resection Social History Smoking Status: Never smoker alcohol intake: current alcohol intake frequency: holidays/special occasions only ROS Constitutional Constitutional: Denies fatigue, fever(s), poor appetite, weight gain or weight loss Gastrointestinal Gastrointestinal: Denies belching, bloating, change in bowel habits, change in stool character, chewing difficulty, coffee ground emesis, constipation, cramping, diarrhea, dyspepsia, dysphagia, earlysatiety, excessive flatus, fecalincontinence, heartburn, hematemesis, hematochezia, hemorrhoids, loose stools, melena, nausea, odynophagia, rectal bleeding, tenesmus, vomiting or weight changes Vital Signs Vital Signs Vital Signs: 12/22/24 12:21 12/22/24 12:21 Temperature 98.6 F Temperature Source Temporal Pulse Rate 62 Respiratory Rate 17 Respiratory Pattern Normal Blood Pressure 117/81 H Blood Pressure Mean 93 Blood Pressure Source Monitor Blood Pressure Position Semi-Fowlers Blood Pressure Location Right Arm Pulse Ox 100 Oxygen Delivery Method Room Air Weight Weight: 156 lb 8.451 oz Body Mass Index (BMI) 26.0 Physical Exam Const alert, oriented x3, no apparent distress and healthy appearing General Appearance: cooperative GI normal to inspection, nondistended, normoactive bowel sounds, soft to palpation,non-tender and non-distended Percussion: normal to percussion Rectal Exam: deferred Assessment & Plan Assessment/Plan (1) Irritable bowel syndrome with constipation: (2) Constipation: (3) Abdominal pain: PLAN: Assessment and Plan Assessment and Plan (1) Constipation: Status: Acute Plan: Eren is a 64 yo female pt here today for f/u regarding her constipation. Pt hasbeen taking colace with no relief. her last colonoscopy was in 2017. She will undergo repeat colonoscopy at this time. I have started her on Linzess 72 mcg daily. -Colonoscopy -Start Linzess 72 mcg daily -f/u after procedure (2) Abdominal pain: Status: Acute Medications: 12/22/24 1226 Cosigner Signature (if applicable): CC: Dr. Gonzalo Day MD; Aditya Cota DO~ Signed [facility]08-08-2025 [facility] Medical Records Department [address] [place] [id number] History Physical Exam 12/22/24 1224 MR#: [id number] Acct: [id number] Name: EREN MERCHANT Rep #: [id number] : 1960 64 From: Aditya Cota DO PCP: Dr. Gonzalo Day MD [place] [facility] [place] [address] HPI - General General Date of Admission: 12/22/24 Date of Service: 12/22/24 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: Abdominal pain HPI Narrative EREN MERCHANT, is a 64 F who presents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: abd pain BGI established March 2024 after [facility] hospitalization for seizure like activity. 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 Pt on Cellcept and prednisone for interstitial lung disease. Found to have esophageal thickening on imaging. Underwent EGD showing esophageal candidiasis stated on Diflucan and nystatin. EGD 03.07.24; severe candidiasis w/ no bleeding, LA Grade D acute and erosive esophagitis with no bleeding, gastritis and normal duodenum. with recommendation for f/u in 8 weeks. OV 04.06.25 Pt feeling better on anti fungal medications but since discontinuing it she has had some symptoms. Endorses burning, globus sensation and cough. Start Fluconazole 200 mg daily for 14 days. Scheduled for EGD EGD 06.06.24;- Normal esophagus. Biopsied. - Small hiatal hernia. - Normal second portion of the duodenum. OV 2 Pt doing well today. Reviewed EGD results Swallowing improved after treatment with fluconazole. Last OV 10.11. Pt having burning in her esophagus for a few weeks now. It does not feel like when she had esophageal candidiasis. She does not take a PPI. Over the past few months pt has been having lower abdominal pain and constipation. 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 She started taking Colace 200 mg for three days which did not produce a bm right away. The pain does get better after she has a bm *Start Pantoprazole 20 mg daily, start colace 200 mg daily OV 11.08. Pt continues to have constipation while taking colace. She is having a bm about once a week. Her bm are hard and small balls. She will have to digitally disimpact on some occasions. She has lower abd pain that is relieved after a bm. She feels this is related to her bladder as well. New linaclotide (Linzess) 72 mcg PO QAM 30 caps 1RF PFSH Medical History Kidney stones Thyroid disease Uses wheelchair Back pain Parkinson's disease Orthostatic hypotension History of steroid therapy Wears glasses Post-menopausal Cancer Arthritis History of renal disease DVT (deep venous thrombosis) Easy bruising Syncope Dietary restriction History of diverticulitis Interstitial emphysema of lung Non-smoker History of edema Overactive bladder Intramural leiomyoma of uterus Esophageal dysmotility Abnormal Pap smear of vagina and vaginal HPV Positive P-ANCA titer Hypothyroid Home Medications ???Medication ???Instructions ???Recorded ???Last Taken ???Type aspirin 81 mg chewable tablet 81 mg PO DAILY@0800 06/28/1812/21 History cholecalciferol (vitamin D3) 25 1,000 unit PO BID 06/28/18 5 History mcg (1,000 unit) tablet (Vitamin D3) mycophenolate mofetil 500 mg 500 mg PO BID 03/04/24 12/21/24 Hi story tablet (CellCept) levothyroxine 100 mcg capsule 100 mcg PO QDAY 04/06/24 12/22/24 History ondansetron 4 mg disintegrating 4 mg PO Q8H PRN nausea and vomitin g 04/06/24 Unknown History tablet Lactobacillus acidophilus 250 500 mmu cells PO DAILY 06/02/24 History million cell capsule (Probiotic Acidophilus) amitriptyline 50 mg tablet 100 mg PO QHS 07/07/24 12/21/24 Hi story carbidopa 25 mg-levodopa 100 mg 1 tab PO TID 10/11/24 12/21/24 His tory tablet (Sinemet) pantoprazole 20 mg tablet,delayed 20 mg PO QDAY #30 tabs 10/11/24 0 12/21/24 Rx release carbidopa 25 mg tablet 25 mg PO TID 11/08/24 12/21/24 His tory plecanatide 3 mg tablet (Trulance) 3 mg PO QDAY #30 tabs 11/21/24 0 12/21/24 Rx fludrocortisone 0.1 mg tablet 0.2 mg PO DAILY 12/19/24 12/21/24 History multivitamin (Daily Multi-Vitamin 1 tab PO DAILY 12/19/24 12/21/24 History tablet) Allergy/AdvReac Type Severity Reaction Status Date / Time cetirizine (From Rust) Allergy Intermediate Rash Verified 12/22/24 12:18 erythromycin base AdvReac Intermediate Diarrhea Verified 12/22/24 12:18 azithromycin AdvReac Mild Diarrhea Verified 12/22/24 12:18 Family History Mother Thyroid disorder Hypertension Father Heart disease Hypertension COPD (chronic obstructive pulmonary disease) Surgical History S/P laparoscopic appendectom (more content not included)...[facility] Instructions* Patient Instructions* Cyndi Naik APRN.EMPLOYMENT SERVICES DIRECTOR - 12/13/2024 8:08 AM EDT - Take Florinef 0.2 mg (two 0.1 mg tablets) once daily with breakfast; prescription sent to [facility] [place]. - Continue drinking 2 liters of fluid each day. - Continue wearing your waist-high compression stockings as ordered. - Continue home blood pressure checks: measure sitting, then stand and re- measure after 3 minutes; record all readings. - Bring your home blood pressure cuff to the next visit so we can verify its accuracy. - For fall safety, use your walker with the built-in seat and keep a chair nearby when standing; when walking outside, have someone with you and carry your phone or an emergency alert device. - A follow-up appointment will be scheduled in two weeks to recheck your blood pressure and review your symptoms. documented in [facility] History of Present illness Narrative* Cyndi Naik APRN.SAMIR - 12/13/2024 7:38 AM EDT 12/13/2024 Patient presents with: Recheck Recording using [employer] software for draft documentation of the visit was discussed with the patient/authorized parts representative; all questions welcomed and answered. Patient/authorized parts representative agreed to proceed SUBJECTIVE: This is a 64 year old, accompanied by , that is here today for Above Complaints. Orthostatic Hypotension: - Persistent orthostatic hypotension with significant drops in blood pressure upon standing. - Noted blood pressure readings as low as 68/49 mmHg. - Symptoms include lightheadedness, particularly when standing up; no vertigo reported. - Requires sitting down for a few minutes to alleviate symptoms. - Symptoms also triggered by exposure to sunlight; needs to sit in the shade before resuming activities. - Denies recent lightheadedness indoors. - Using a walker for stability; has a chair nearby when taking blood pressure readings. - Hospitalized in February due to multiple falls, some resulting in head trauma. - Currently taking Florinef, reinitiated by Dr. Day. - Initially prescribed Florinef in the hospital in February; discontinued by lot porter Dr. Harrison May. - Dr. Steve, [place] [facility] [place] - Ordered waist-high compression stockings and increased fluid intake to 2 liters daily. - Reports improvement in lightheadedness since resuming Florinef. - Family history of similar blood pressure issues in mother, who was a diabetic. 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 amitriptyline (ELAVIL) 100 mg tablet Take 1 tablet by mouth daily at bedtime. estradiol (ESTRACE) 0.01 % (0.1 mg/gram) vaginal cream Use 1 g vaginally daily at bedtime for 14 days, THEN 1 g two times a week. pantoprazole DR (PROTONIX) 20 mg tablet Take 1 tablet by mouth once daily. carbidopa-levodopa (SINEMET 25-100) 25-100 mg per tablet Take 1 tablet by mouth three times a day. carbidopa (LODOSYN) 25 mg tab Take 1 tablet by mouth three times a day. mycophenolate Mofetil (CELLCEPT) 500 mg tablet Take 1 tablet by mouth two times a day. levothyroxine (SYNTHROID) 100 mcg tablet Take 1 tablet by mouth once daily. Take on empty stomach calcium carbonate 600 mg-cholecalciferol 400 units 600 [...] Take 1 capsule by mouth once daily. fludrocortisone (FLORINEF) 0.1 mg tablet Take 2 tablets by mouth once daily. Current Facility-Administered Medications Medication Dose Route Frequency cosyntropin 0.25 mg injection (CORTROSYN) 0.25 mg INTRAMUSCULAR PRN Medications and allergies reviewed by this provider. SOCIAL HISTORY Social History Tobacco Use Smoking status: Never Passive exposure: Never Smokeless tobacco: Never Tobacco comments: No one in household smokes. Smoker in childhood home. Vaping Use Vaping status: Never Used Substance Use Topics Alcohol use: Yes Comment: Rarely Drug use: No REVIEW OF SYSTEMS All other reviewed and negative other than HPI. OBJECTIVE: BP 110/82 Pulse 92 Resp 12 Wt 72.2 kg (159 lb 3.2 oz) LMP 01/07/2011 BMI 26.49 kg/m . Vital signs reviewed by this provider. GENERAL: NAD, alert and oriented. RSV Vaccine(1 - Risk 60-74 years 1-dose series) Never done Cervical Cancer Screening due on 08/24/2019 Advance Directive Discussion due on 05/17/2024 Depression Screening due on 12/27/2024 Anxiety Screening due on 12/27/2024 Influenza Vaccine(1) due on 01/15/2025 Hemoglobin/Hematocrit due on 07/31/2025 Mammogram Screening due on 08/21/2025 Serum Creatinine due on 09/28/2025 Annual PCP Team Chronic Disease Visit due on 12/13/2025 Diabetes Screening due on 09/24/2027 Colorectal Cancer Screening due on 12/23/2027 Lipid Screening due on 01/30/2029 DTaP,Tdap,Td Vaccine(4 - Td or Tdap) due on 03/01/2033 Bone Density Screening Completed Medicare Advantage Annual Wellness Visit Completed Hepatitis C Screening Completed Shingrix Vaccine Completed Pneumococcal Vaccine: 50+ Completed 1. Orthostatic hypotension (I95.1) 2. Parkinson's disease, unspecified whether dyskinesia present, unspecified whether manifestations fluctuate (HCC) (G20.A1) - Orthostatic hypotension likely multifactorial, with Sinemet contributing. - Persistent orthostatic hypotension with systolic BP readings as low as 68 mmHg; symptoms include lightheadedness when standing and with sun exposure. - Increase Florinef from 0.1 mg daily to 0.2 mg daily (2 tablets once daily). - Continue use of waist-high compression stockings and maintain fluid intake of at least 2 liters daily. - Educated patient on the importance of safety measures, including using walker with seat, having achair nearby, and carrying a phone or alert device when alone. - Advised patient to continue home BP monitoring and bring BP cuff to next visit for calibration. - Follow-up in 2 weeks to reassess symptoms and BP response to medication adjustment. Cyndi Naik, [employer].EMPLOYMENT SERVICES DIRECTOR Prescription instructions reviewed with patient as applicable. Patient advised if symptoms do not improve or if symptoms worsen sooner, to contact their primary care physician. Potential red flag symptoms discussed with the patient. Reviewed appropriate action plan to take if red flag symptoms occur. Patient agreeable to treatment plan. [id number] OVERALL COMPLEXITY Problem Complexity: Moderate Data Level: Straightforward Risk Level: Moderate Overall MDM complexity (2/3 must be met or exceeded): Moderate PROBLEMS SECTION: 1. Orthostatic hypotension - Chronic illness with exacerbation, progression, or side effects of treatment 2. Parkinson's disease, unspecified whether dyskinesia present, unspecified whether manifestations fluctuate (HCC) - Stable, Chronic Illness One or more chronic illnesses with exacerbation, progression, or side effects of treatment (Moderate complexity) Problem complexity level: Moderate DATA SECTION: - Review of prior external note(s) from each unique source: - Review of the result(s) of each unique test: - Ordering of each unique test: - Assessment requiring an independent historian(s): - Independent interpretation of a test performed by another physician/other qualified health hospice care consultant: - Discussion of management or test interpretation with external physician/other qualified health hospice care consultant/appropriate source: Data complexity level: Minimal; minimal or no complexity requirements met RISKS SECTION: Prescription drug management (increase Florinef dose) - Moderate complexity Non-pharmacologic management (compression stockings, fluid intake, safety education) - Minimal complexity Home BP monitoring - Minimal complexity Risks complexity level (highest from above): Moderate documented in this encounterA[facility]07-[facility]-20[facility] History of Present illness Narrative* Charis Lopez APRN.CNM - 12/06/2024 8:03 AM EDT Drag Seiner offered: Patient declines. Eren is a 64 year old who presents for an annual gynecologic exam without complaints. Justmoved in with son and family. Postmenopausal: Yes since [id number] HRT use: Vaginal estrogen cream Still get period: No Menopause symptoms: Vaginal dryness Number of lifetime partners: 2 Contraception frequency: Always HPV vaccine: No; Last pap smear: 08/23/2018, normal, positive HPV History of abnormal pap: Yes, history of abnormal PAP smears Cone biopsy: No. Bothersome pelvic pain: Yes Last mammogram: 2024 normal History of abnormal mammogram: yes, once it had to be repeated but ended up being nothing. 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 Bladder: Urgency, Frequency, Bladder pain- managed by urology. Breast: No breast lumps, nipple d/c, overlying skin changes, redness or skin retraction Allergies and current medication updated:Yes SENSITIVE EXAM: The sensitive examination was discussed with the Patient or Patient's Authorized Talent Development Specialist. As applicable, any other physician, advance practice provider, medical student, or other health professional student that will be observing or involved in the sensitive examination for educational or training purposes was discussed with the Patient or Authorized Talent Development Specialist. The Patient or Authorized Talent Development Specialist has agreed to proceed with the sensitive examination. (Sensitive examination includes inspection and/or palpation of the breasts, pelvis, prostate and anorectal regions). EXAM: BP 98/60 Ht 5' 5 (1.65m) Wt 160 lb 6.4 oz (72.8kg) LMP 01/07/2011 BMI 26.69 kg/(m^2). GENERAL: pleasant, female in no apparent distress HEENT: Normocephalic and atraumatic NECK: Supple and full range of motion DERMATOLOGY: Normal BREAST: soft, non-tender, symmetric, no dominant mass, normal nipple-areolar complex, no lymphadenopathy, and no nipple discharge CHEST: Normal inspiratory effort ABDOMEN: soft, non-tender, and no masses PELVIC: no cervical lesions, atrophic changes , stenotic os - Small genital wart to right lower labia majora BIMANUAL: non-tender RECTOVAGINAL: deferred. NEURO: alert and oriented x3,exam grossly non-focal EXTREMITIES: normal ASSESSMENT/PLAN: 1) Health maintenance: Pap/HPV screening no longer needed Mammogram ordered Colon cancer screening: Scheduled for next month TSH/lipids/glucose: followed by PCP BMD: followed by PCP 2) Discussed finding of small genital wart- not bothersome to patient at this time Follow up one year or sooner as needed Colonscopy 12/22/24 Dr. Cipriano Lopez APRN.CNM documented in this encounterAdena [facility]07-16-2025 Instructions* Patient Instructions* Jasmyne Day MD - 11/29/2024 10:06 AM EDT - Florinef (fludrocortisone) 0.1 mg by mouth once daily each morning; [facility] [place] [facility] - Drink at least 2 liters of water each day to help maintain your blood pressure - Wear waist-high compression stockings during the day; remove them at night - Continue your Parkinson s medication (Sinemet with carbidopa) as prescribed - Check and record your blood pressure at home when lying down, immediately upon standing, and after standing for 3 minutes - If your resting blood pressure exceeds 140/90 mm Hg, if you feel dizzy or lightheaded, or if you faint or fall and hit your head, go to the hospital or call our office - Return in two weeks to recheck your blood pressure and review how you re doing documented in this encounterAdena [facility]07-16-2025 [facility]07-[facility]25 History of Present illness Narrative* Jasmyne Day MD - 11/29/2024 9:41 AM EDT 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 Patient presents with: Blood Pressure: Saw Neurology on 11/16/24. Concerns of Orthostatic hypotension. States her BP [id number] points. Some intermittent dizziness with standing. Recording using [employer] software for draft documentation of the visit was discussed with the patient/authorized parts representative; all questions welcomed and answered. Patient/authorized parts representative agreed to proceed HPI Eren Merchant is a 64 year old female who presents here today for Above Complaints. Orthostatic Hypotension: - Noted significant drops in blood pressure upon standing, with readings as low as 68/49 mmHg. - Symptoms include occasional lightheadedness and dizziness upon standing. - No recent syncope or falls since August. - No recent nausea, vomiting, or diarrhea. - Neurologist recommended monitoring blood pressure in different positions; Eren has been recording blood pressure since March. - Previously prescribed fludrocortisone in the hospital for orthostatic hypotension; lot porter discontinued it, but Eren has taken it PRN when blood pressure drops below 100 mmHg. - No new chest pain, palpitations, or leg swelling. - Drinking approximately 52 ounces of water daily, plus coffee; not meeting the recommended 2 liters. - Advised to limit salt intake due to CKD. Parkinson's Disease: - Managed with Sinemet and an additional 25 mg of carbidopa. - Initially experienced nausea with Sinemet, but symptoms resolved with the addition of carbidopa. Past medical history, appointments, medications, allergies reviewed. 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 Amantadine Contraindication-Medical Surgical Has renal failure, has not been on but would avoid due to metabolism. Compazine [Prochlor* Contraindication-Medical Surgical This should not be given to people with Parkinson's disease. If not otherwise contraindicated, Zofran should be given instead. Haldol [Haloperidol] Contraindication-Medical Surgical People with Parkinson's disease should not take this or other antipsychotics except Nuplazid, Seroquel, and Clozaril can be prescribed. Phenergan [Prometha* Contraindication-Medical Surgical This should not be given to people with Parkinson's disease. If not otherwise contraindicated, Zofran should be given instead. Reglan [Metoclopram* Contraindication-Medical Surgical This should not be given to people with Parkinson's disease. If not otherwise contraindicated and for nausea, Zofran should be given instead. Zyprexa [Olanzapine] Contraindication-Medical Surgical People with Parkinson's disease should not take this or other antipsychotics except Nuplazid, Seroquel, and Clozaril can be prescribed. Erythromycin Diarrhea Hay Fever [Seasonal* Cough Zyrtec [Cetirizine * Itching Current Medications Current Outpatient Medications on File Prior to Visit Medication Sig TRULANCE 3 mg tablet Take 1 tablet by mouth once daily. amitriptyline (ELAVIL) 100 mg tablet Take 1 tablet by mouth daily at bedtime. estradiol (ESTRACE) 0.01 % (0.1 mg/gram) vaginal cream Use 1 g vaginally daily at bedtime for 14 days, THEN 1 g two times a week. pantoprazole DR (PROTONIX) 20 mg tablet Take 1 tablet by mouth once daily. carbidopa-levodopa (SINEMET 25-100) 25-100 mg per tablet Take 1 tablet by mouth three times a day. carbidopa (LODOSYN) 25 mg tab Take 1 tablet by mouth three times a day. mycophenolate Mofetil (CELLCEPT) 500 mg tablet Take 1 tablet by mouth two times a day. levothyroxine (SYNTHROID) 100 mcg tablet Take 1 tablet by mouth once daily. Take on empty stomach calcium carbonate 600 mg-cholecalciferol 400 units 600 [...] Take 1 capsule by mouth once daily. Current Facility-Administered Medications on File Prior to Visit Medication cosyntropin 0.25 mg injection (CORTROSYN) Social History Social History Tobacco Use Smoking status: Never Passive exposure: Never Smokeless tobacco: Never Tobacco comments: No one in household smokes. Smoker in childhood home. Vaping Use Vaping status: Never Used Substance Use Topics Alcohol use: Yes Comment: Rarely Drug use: No Review of Symptoms REVIEW OF SYSTEMS GENERAL: No weight loss, malaise or fevers RESPIRATORY: Negative for cough, hemoptysis, wheezing, COPD, dyspnea or shortness of breath CARDIOVASCULAR: Negative for chest pain, leg swelling, hypertension, CHF or palpitations GI: No nausea, vomiting, or diarrhea SKIN: Negative for lesions, rash, and itching EXAM: Ht 165.1 cm (5' 5) Wt 71.8 kg (158 lb 3.2 oz) LMP 01/07/2011 SpO2 99% BMI 26.33 kg/m BP w/Orthostatic Vitals Date and Time Orthostatic BP Orthostatic Pulse BP Pulse BP Position BP Site BP Cuff Size 11/29/24 0939 80/60 81 -- -- -- -- -- 11/29/24 0935 116/74 92 -- -- -- -- -- General Appearance: Well appearing, alert, in no acute distress, well-hydrated, well nourished.. Skin: Skin color, texture, turgor normal, no suspicious rashes or lesions. Lungs: Lungs clear to auscultation. No wheezing, rhonchi, rales.. Heart: RRR without murmur, gallop, or rubs. No ectopy. Abdomen: Normal abdominal exam, Abdomen soft, non-tender. Bowel sounds normal. No masses, organomegaly. Extremities: No deformities, edema, skin discoloration, clubbing or cyanosis. Good capillary refill. . Health Maintenance List RSV Vaccine(1 - Risk 60-74 years 1-dose series) Never done Cervical Cancer Screening due on 08/24/2019 Advance Directive Discussion due on 05/17/2024 Covid-19 Vaccine(2023- season) due on 09/13/2024 Depression Screening due on 12/27/2024 Anxiety Screening due on 12/27/2024 Influenza Vaccine(1) due on 01/15/2025 Hemoglobin/Hematocrit due on 07/31/2025 Mammogram Screening due on 08/21/2025 Serum Creatinine due on 09/28/2025 Annual PCP Team Chronic Disease Visit due on 11/29/2025 Diabetes Screening due on 09/24/2027 Colorectal Cancer Screening due on 12/23/2027 Lipid Screening due on 01/30/2029 DTaP,Tdap,Td Vaccine(4 - Td or Tdap) due on 03/01/2033 Bone Density Screening Completed Medicare Advantage Annual Wellness Visit Completed Hepatitis C Screening Completed Shingrix Vaccine Completed Pneumococcal Vaccine: 50+ Completed Data reviewed Latest Ref Rng 08/31/2024 09/23/2024 09/28/2024 Protein, Total 6.3 - 8.0 g/dL 7.5 Albumin 3.9 - 4.9 g/dL 3.9 4.1 Calcium 8.5 - 10.2 mg/dL 10.5 (H) 10.0 Bilirubin, Total 0.2 - 1.3 mg/dL 0.4 Alkaline Phosphatase 34 - 123 U/L 118 AST 13 - 35 U/L 21 ALT 7 - 38 U/L 12 Glucose 74 - 99 mg/dL 92 106 (H) BUN 7 - 21 mg/dL 25 (H) 24 (H) Creatinine 0.58 - 0.96 mg/dL 1.42 (H) 1.50 (H) Sodium 136 - 144 mmol/L 136 137 Potassium 3.7 - 5.1 mmol/L 4.4 4.3 Chloride 98 - 107 mmol/L 101 101 CO2 22 - 30 mmol/L 21 (L) 24 Anion Gap 8 - 15 mmol/L 14 12 eGFR >=60 mL/min/1.73m 41 (L) 38 (L) Phosphorus 2.7 - 4.8 mg/dL 3.2 Creatinine, Ur Random (UCRR) 20.0 - 300.0 mg/dL 239.9 Creatinine, Ur Random (UCRR) 20.0 - 300.0 mg/dL 239.9 Albumin, Urine Random mg/L 386.0 Albumin/Creat Ratio <30 mg/g 161 (H) Protein, Urine Random 0 - 20 mg/dL 161 (H) Protein/Creat Ratio <0.15 mg/mg 0.67 (H) TSH 0.270 - 4.200 mIU/L 1.210 Magnesium 1.7 - 2.3 mg/dL 2.1 PTH, Intact 15 - 65 pg/mL 33 Vitamin D 25 Hydroxy 31.0 - 80.0 ng/mL 63.0 Legend: (H) High (L) Low 1. Parkinson's disease, unspecified whether dyskinesia present, unspecified whether manifestations fluctuate (HCC) (G20.A1) - Managed with Sinemet and an additional 25 mg of carbidopa; patient tolerating current regimen without nausea or vomiting. - Parkinson's disease contributing to orthostatic hypotension. - Continue current medication regimen. - Follow-up with neurology in February. 2. Orthostatic hypotension (I95.1) - Significant postural blood pressure drops noted, with readings as low as 68/49 mmHg upon standingwhich is a common condition with parkinsons and Sinemet. Previously controlled on Fludrocortisone. - Reinitiated fludrocortisone 0.1 mg PO daily; prescription sent to patient's pharmacy. - Advised increasing fluid intake to 2 liters per day. - Ordered waist-high compression stockings to be worn during the day; prescription provided. - Educated on signs of severe hypotension and advised to seek immediate medical attention if experiencing syncope or falls. - Follow-up in two weeks to reassess blood pressure stability. 3. Stage 3 chronic kidney disease, unspecified whether stage 3a or 3b CKD (HCC) (N18.30) - Dietary sodium restriction in place. - Continue regular follow-ups with nephrology; next appointment scheduled for the day before . Jasmyne Day MD documented in this encounterA[facility] Instructions* Patient Instructions* Gemma Roberts APRN.EMPLOYMENT SERVICES DIRECTOR - 11/16/2024 8:56 AM EDT It was a pleasure to see you today. We addressed the following diagnoses: Parkinsonism, unspecified parkinson[facility] Constipation, unspecified constipation type (primary encounter diagnosis) Rem sleep behavior disorder Restless legs syndrome Orthostatic hypotension My recommendations are as follows: 11/16/2024 Visit: Parkinson's disease: Continue Sinemet dosing Exercise as you are able Orthostatic hypotension (drops in blood pressure): Guidelines for the Treatment of orthostatic hypotension (low blood pressure upon standing) 1. Make all position changes from lying to sitting or sitting to standing, slowly. 2. Avoid large meals which can cause low blood pressure during digestion. It is better to eat smaller meals more often than three large meals. 3. Avoid alcohol. 4. Perform lower extremity exercises to improve strength of the leg muscles. This will help preventblood from pooling in the legs when standing and walking. 5 Raise the head of the bed by 6 to 10 inches. The entire bed must be at an angle. Raising only thehead portion of the bed at waist level or using pillows will not be effective. 6 Drink 16oz of water quickly as soon as you wake up in the morning BEFORE you even get out of bed.This will result in an increased blood pressure within a short time of drinking the water. The effect will only last approximately up to one hour so continue staying well hydrated throughout the day. 7. Use custom fitted elastic support stockings. These will reduce a tendency for blood to pool in the legs when standing and may improve orthostatic intolerance. These have to be Thigh-high. Compression stockings that only reach the knees are not as helpful. Abdominal binders can also help with this. 8. Avoid overly hot showers/baths, hot tubs and saunas as these can also lower your blood pressure Restless leg syndrome: If this gets worse, please let me know. REM Sleep Behavior Disorder (acting out of dreams): If this gets worse, please let me know. Constipation: Continue Linzess and follow up with your GI specialist Interested in clinical research? Not discussed Movement Disorders Medication Schedule: Medications AM Lunch PM Sinemet 25/100 1 1 1 Carbidopa 25 mg 1 1 1 Zofran 4 mg 1 prn No follow-ups on file. Your current [facility] Movement Disorders Team includes: Primary Movement Disorders Neurologist: Bogdan Roberts MD Primary Movement Disorders Advanced Practice Provider: Gemma Roberts CNP If there are any concerns before your next visit, please call or you can send a message through [employer]. You can also now schedule and select appointments through [employer]. Gemma Roberts APRN.EMPLOYMENT SERVICES DIRECTOR documented in this encounterA[facility] History of Present illness Narrative* Gemma Roberts APRN.SAMIR - 11/16/2024 7:57 AM EDT [facility] - FOLLOW UP EVALUATION Priyanka Smith MD [id number] [facility] [id number] Dear Priyanka Smith MD: I had the pleasure of seeing Ms. Merchant for follow-up today. As you know she is a 64 year old right-handed female with a history of tremor since 2021. She is seen with her [id number], Clementina. Subjective Previous Plan-09/22/2024 Visit with Rika Adam CNP: Parkinsonism - Start Sinemet titration as follows: Week 1 and 2: Take half a tablet at 8a, 1p, 6p Week 3 and 4: Take 1 tablet at 8a, half a tablet at 1p, 6p Week 5 and 6: Take 1 tablet at 8a and 1p, half a tablet at 6p Week 7 and beyond: Take 1 tablet at 8a, 1p, 6p -Take Carbidopa 25 mg with each dose of Sinemet. -Starting week 3, take Zofran in the morning and 8 hours later. -Take Sinemet with food. -Call with any questions or concerns or send a mychart Follow up as scheduled with Gemma November 16 Interval History: Her tremor is much better on the Sinemet and overall, she feels she is doing well She has measured her blood pressure sitting and then standing after 3 minutes and it does always drop like it did here today. She often loses her balance and has had some big falls. She is moving in with her son and DIL next week as everyone is concerned with her falling. Movement Disorders Medications Schedule - as of the start of the visit: Medications AM Lunch PM Sinemet 25/100 1 1 1 Carbidopa 25 mg 1 1 1 Zofran 4 mg 1 prn Other Movement Disorder Prior Therapies Propranolol Cannot take Topamax and Zonisamide due to kidney stones Questionnaires: In addition, the following areas that may be affected by abnormal involuntary movements were evaluated: Daily activities Difficulties with eating: No Difficulties in dressing: No Difficulties with hygiene activities: No Difficulties with handwriting: Sometimes but better with the Sinemet Difficulties with doing hobbies and other activities: 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 [employer] Difficulties turning in bed: No Difficulties getting out of bed, car or chair: Sometimes the car especially when her back hurts Tremors/Gait/Balance Shaking or tremors: Better with the Sinemet Walking and balance problems: Yes Number of falls in the Last Month: 0 Gait freezing: No Autonomic/Pain Lightheadeness on standing: Yes-not worse since starting any specific medications-had been on Florinef in the past Urinary problems: Yes and seeing a azure architect/uro and they said it is not an overactive bladder Constipation problems: This has been helped with Linzess Pain and other sensations: In her back Speech/Swallowing Speech problems: No Drooling: No Chewing and swallowing problems: No Sleep/Fatigue Sleep problems: Yes due to frequent urination and sometimes she has insomnia Daytime sleepiness: She naps every chance she gets, but they are short Fatigue: Yes Mood/Behavior Depression: PHQ-9 Score: 4 usually representing no significant (0-4) depression. Anxiety: YOVANY-7 Total Score: 1 usually representing no significant (0-4) anxiety. Finally, the following table shows the patient's overall global physical and mental health using the PROMIS scale: PROMIS-10 Flowsheet Row OT/PT/Speech Visit from 09/28/2024 in [employer] [facility] Physical Therapy Most recent reading at 09/21/2024 3:30 PM Office Visit from 09/22/2024 in Neurology Most recent reading at 09/21/2024 3:30 PM Global Physical Health T Score 34.9 34.9 Global Mental Health T Score 50.8 50.8 0-10 Standard Pain Scale 3 3 *PROMIS-10 scoring scale: mean = 50, over 50 is above average, under 50 is below average In addition, the following non-motor symptoms and palliative concerns were evaluated: Sleep/Fatigue: REM sleep behavior disorder: Unclear though her covers are messed up and she does wake up sometimestalking Restless Legs Syndrome: Yes This happens rarely but does occur. Leg swelling: No Impaired sense of smell: No Cognition: Memory and Thinkin - Slight. Impairment appreciated by me or my caregiver with no concrete interference with my ability to carry out normal activities and social interactions. Hallucinations and Psychosis: 0 - Normal. No hallucinations or psychotic behavior. Depressed Mood: 0 - Normal. No depressed mood. Anxious Mood: 0 - Normal. No anxious feelings. Apathy: 2 - Mild. Apathy interferes with isolated activities and social interactions. Impulse Control: 0 - Normal. No problems present. MoCA Cognitive assessment: Palliative Concerns: Caregiver burden: Spiritual concerns: No Advanced directives on file: She is getting this done soon Palliative services: No Therapy and Exercise: Last PT Date: 10/31/2024 (with Leandro Vargas) for Overactive bladder [N32.81] This was for walking and not overactive bladder Last OT Date: ST Date: Exercises Regularly: Yes ALLERGIES Allergen Reactions Abilify [Aripiprazo* Contraindication-Medical Surgical People with Parkinson's disease should not take this or other antipsychotics except Nuplazid, Seroquel, and Clozaril can be prescribed. Amantadine Contraindication-Medical Surgical Has renal failure, has not been on but would avoid due to metabolism. Compazine [Prochlor* Contraindication-Medical Surgical This should not be given to people with Parkinson's disease. If not otherwise contraindicated, Zofran should be given instead. Haldol [Haloperidol] Contraindication-Medical Surgical People with Parkinson's disease should not take this or other antipsychotics except Nuplazid, Seroquel, and Clozaril can be prescribed. Phenergan [Prometha* Contraindication-Medical Surgical This should not be given to people with Parkinson's disease. If not otherwise contraindicated, Zofran should be given instead. Reglan [Metoclopram* Contraindication-Medical Surgical This should not be given to people with Parkinson's disease. If not otherwise contraindicated and for nausea, Zofran should be given instead. Zyprexa [Olanzapine] Contraindication-Medical Surgical People with Parkinson's disease should not take this or other antipsychotics except Nuplazid, Seroquel, and Clozaril can be prescribed. Erythromycin Diarrhea Hay Fever [Seasonal* Cough Zyrtec [Cetirizine * Itching Current Outpatient Medications Medication Sig amitriptyline (ELAVIL) 100 mg tablet Take 1 tablet by mouth daily at bedtime. estradiol (ESTRACE) 0.01 % (0.1 mg/gram) vaginal cream Use 1 g vaginally daily at bedtime for 14 days, THEN 1 g two times a week. pantoprazole DR (PROTONIX) 20 mg tablet Take 1 tablet by mouth once daily. carbidopa-levodopa (SINEMET 25-100) 25-100 mg per tablet Take 1 tablet by mouth three times a day. carbidopa (LODOSYN) 25 mg tab Take 1 tablet by mouth three times a day. mycophenolate Mofetil (CELLCEPT) 500 mg tablet Take 1 tablet by mouth two times a day. levothyroxine (SYNTHROID) 100 mcg tablet Take 1 tablet by mouth once daily. Take on empty stomach ondansetron (ZOFRAN) 4 mg tablet Take 1 tablet by mouth every 8 hours as needed for nausea/vomiting. calcium carbonate 600 mg-cholecalciferol 400 units 600 [...] Take 1 capsule by mouth once daily. linaCLOtide (LINZESS) 72 mcg capsule Take 1 capsule by mouth once daily. Take capsule on an empty stomach at least 30 minutes before a meal at the same time each day. Capsule should be swallowed whole. DO NOT chew or crush. Current Facility-Administered Medications Medication Dose Route Frequency cosyntropin 0.25 mg injection (CORTROSYN) 0.25 mg INTRAMUSCULAR PRN Objective Vital Signs: Ht 165.1 cm (5' 5) Wt 72.1 kg (158 lb 15.2 oz) LMP 01/07/2011 SpO2 98% BMI 26.45 kg/m Orthostatic Vitals: Sitting: BP 118/78 Pulse 92 Standing: BP 93/64 Pulse 97 Weight: 72.1 kg (158 lb 15.2 oz) Height: 165.1 cm (5' 5) Patient's last menstrual period was 01/07/2011. Body mass index is 26.45 kg/m . Movement Disorders Scales Performed: MDS-UPDRS Motor subscale condition of exam Medication Off/On/Naiive ON Time of UPDRS 0840 Time of Last Medication 0640 Last Medication Taken DBS Right N/A DBS Left N/A MDS-UPDRS Motor subscale scores Speech 0-Normal. No speech problems. Facial Expression 1-Slight. Minimal masked facies manifested only by decreased frequency of blinking. Rigidity Neck 1-Slight. Rigidity only detected with activation maneuver. Rigidity Right Upper Extremity 0-Normal. No rigidity. Rigidity Left Upper Extremity 1-Slight. Rigidity only detected with activation maneuver. Rigidity Right Lower Extremity 1-Slight. Rigidity only detected with activation maneuver. Rigidity Left Lower Extremity 2-Mild. Rigidity detected without the activation maneuver, but full range of motion is easily achieved. Finger Taps Right 1-Slight. a) the regular rhythm is broken with one or two interruptions or hesitations of the tapping movement, b) slight slowing, c) the amplitude decrements near the end of the 10taps. Finger Taps Left 2-Mild. a) 3 to [...] end of the sequence. Arm Movements Left 2-Mild. a) 3 to 5 interruptions during the movements, b) mild slowing, c) the amplitude decrements midway in the sequence. Toe Taps Right 0-Normal. No problem. Toe Taps Left 1-Slight. a) the regular rhythm is broken with one or two interruptions or hesitations of the tapping movement, b) slight slowing, c) the amplitude decrements near the end of the ten taps. Leg Agility Right 1-Slight. a) the regular rhythm is broken with one or two interruptions or hesitations of the movement, b) slight slowing, c) the amplitude decrements near the end of the task. Leg Agility Left 2-Mild. a) 3 to 5 interruptions during the movements, b) mild slowness, c) the amplitude decrements midway in the task. Arise From Chair 1-Slight. Arising is slower than normal, or may need more than one attempt, or mayneed to move forward in the chair to arise. No need to use the arms of the chair. Gait 2-Mild. Independent walking but with substantial gait impairment. (Bilateral absent arm swing) Gait Freezing 0-Normal. No freezing. Posture Stability 0-Normal. No problems: recovers with one or two steps. (deferred) Posture 2-Mild. Definite flexion, scoliosis or leaning to one side, but patient can correct postureto normal posture when asked to do so. Body Bradykinesia 1-Slight. Slight global slowness and poverty of spontaneous movements. Postural Tremor Hand Right 1-Slight. Tremor is present but less than 1cm in amplitude. Postural Tremor Hand Left 1-Slight. Tremor is present but less than 1cm in amplitude. Kinetic Tremor Right 1-Slight. Tremor is present but less than 1cm in amplitude. Kinetic Tremor Left 1-Slight. Tremor is present but less than 1cm in amplitude. Rest Tremor Amplitude Right Upper Extremity 0-Normal. No tremor. Rest Tremor Amplitude Left Upper Extremity 0-Normal. No tremor. Rest Tremor Amplitude Right Lower Extremity 0-Normal. No tremor. Rest Tremor Amplitude Left Lower Extremity 0-Normal. No tremor. Rest Tremor Amplitude Lip/Jaw 0-Normal. No tremor. Rest Tremor Constancy 0-Normal. No tremor. MDS-UPDRS Motor subscale totals Left Total 13 Right Total 7 Midline Total 8 Tremor Total / 10 4 PIGD Total / 3 2 Overall Total 28 Assessment and Plan: Assessment Ms. Merchant is a right-handed 64 year old year old female with left > right resting tremor, rigidity and bradykinesia consistent with parkinsonism and involuntary tongue movement consistent with tardive dyskinesia. The parkinsonism may be drug-induced or unmasked Idiopathic Parkinson's disease. She has been feeling well and the tremor is better since being on Sinemet so most likely, this is Parkinson's disease. My main concern for her is the orthostatic hypotension she is experiencing. Her other physicians are aware. She may need to start her on medication if following non-medication recommendations do not work. Her kidney specialist can be consulted for this as he prefers to be aware of medications being added for her. The following are the current problems noted and addressed during this visit: Parkinsonism, unspecified parkinsonism type (hcc) Constipation, unspecified constipation type (primary encounter diagnosis) Rem sleep behavior disorder Restless legs syndrome Orthostatic hypotension Plan 11/16/2024 Visit: Parkinson's disease: Continue Sinemet titration Exercise as you are able Orthostatic hypotension (drops in blood pressure): Guidelines for the Treatment of orthostatic hypotension (low blood pressure upon standing) 1. Make all position changes from lying to sitting or sitting to standing, slowly. 2. Avoid large meals which can cause low blood pressure during digestion. It is better to eat smaller meals more often than three large meals. 3. Avoid alcohol. 4. Perform lower extremity exercises to improve strength of the leg muscles. This will help preventblood from pooling in the legs when standing and walking. 5 Raise the head of the bed by 6 to 10 inches. The entire bed must be at an angle. Raising only thehead portion of the bed at waist level or using pillows will not be effective. 6 Drink 16oz of water quickly as soon as you wake up in the morning BEFORE you even get out of bed.This will result in an increased blood pressure within a short time of drinking the water. The effect will only last approximately up to one hour so continue staying well hydrated throughout the day. 7. Use custom fitted elastic support stockings. These will reduce a tendency for blood to pool in the legs when standing and may improve orthostatic intolerance. These have to be Thigh-high. Compression stockings that only reach the knees are not as helpful. Abdominal binders can also help with this. 8. Avoid overly hot showers/baths, hot tubs and saunas as these can also lower your blood pressure Restless leg syndrome: If this gets worse, please let me know. REM Sleep Behavior Disorder (acting out of dreams): If this gets worse, please let me know. Constipation: Continue Linzess and follow up with your GI specialist Interested in clinical research? Not discussed Updated Movement Disorders Medication Schedule: Medications AM Lunch PM Sinemet 25/100 1 1 1 Carbidopa 25 mg 1 1 1 Zofran 4 mg 1 prn Return at or around: 02/16/25 Level of service : 17748 (40-68 min). Time spent 67 min on the day of service, which included preparing to see the patient, [id number] patient care, completing clinical documentation, obtaining and/or reviewing separately obtained history, performing a medically appropriate examination, and counseling and educating the patient/family/caregiver. Gemma Roberts APRN.EMPLOYMENT SERVICES DIRECTOR documented in this encounterAdena [facility]07-01-2025 Telephone encounter Note * Telephone Encounter - Geni Palmer RN - 11/14/2024 5:30 PM EDT Called Patient. Verified name and . Notified pt that Elavil had been reordered, sent to preferred pharmacy on file. No further questions or concerns. Geni Palmer RN November 14, 2024 5:32 PM [facility]07-01-[facility]25 Miscellaneous Notes* Telephone Encounter - Geni Palmer RN - 11/14/2024 5:30 PM EDT Called Patient. Verified name and . Notified pt that Elavil had been reordered, sent to preferred pharmacy on file. No further questions or concerns. Geni Palmer RN November 14, 2024 5:32 PM * Telephone Encounter - Clementina Esposito APRN.CNP - 11/14/2024 5:23 PM EDT I discontinued to Atarax and reordered Elavil. The following approved medication requests have been transmitted electronically. Requested Prescriptions Signed Prescriptions Disp Refills amitriptyline (ELAVIL) 100 mg tablet 30 tablet 5 Sig: Take 1 tablet by mouth daily at bedtime. Authorizing Provider: CLEMENTINA ESPOSITO APRN.CNP * Telephone Encounter - Luciano Garcia RN - 11/14/2024 11:40 AM EDT Called Patient. Verified name and . Pt reports that she took the Atarax for at least 5-7 days and all the night she took this medication, she has severe insomnia and wanted to go back go back on her Elavil as this helped her sleep. Pt reports that she has only a single pill left of the Elavil since her previous script and refillswere cancelled. Refill(s) request: amitriptyline (ELAVIL) 100 mg tablet Request from: Patient Last order: 08/04/24 Last visit: Office visit with provider German Grubbs on date 10/31/24 Assessment/Plan: #1 Chronic interstitial cystitis (N30.10) Frequent nocturia, sometimes as often as every 10 minutes, and daytime urinary frequency. Minimal urinary leakage. Currently on amitriptyline 100 mg at night. Previous treatments include Myrbetriq and other overactive bladder medications and intradetrusor botox 200 units, which were ineffective. Bladder scan normal. Pelvic exam reveals thin and fragile vaginal tissues. - Discussed potential treatments including bladder instillations, PFPT and antihistamines. Bladder instillations involve instilling a cocktail of medications, including a steroid and lidocaine, into the bladder to reduce inflammation. Antihistamines like Vistaril can help by working on different rec eptors. Bladder instillations are not feasible due to the patient's travel time to office. Patient has not tried pelvic floor physical therapy due to lack of availability in her area. - Discontinue amitriptyline 100 mg at night. - Initiate Vistaril 25 mg at night. Low dose initiated due to CKD. - Consider bladder instillations if symptoms persist and logistics can be managed. 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 Patient has a history of using vaginal estrogen but has not been using it recently. - Restart vaginal estrogen 1 gram every night for 2 weeks, then twice a week thereafter. - Prescription sent to [facility] in [employer] Future appointments: Future Appointments Date Time Provider Department Center 11/16/2024 8:00 AM Gemma Roberts, [employer].EMPLOYMENT SERVICES DIRECTOR NRMDN [facility] 12/06/2024 8:15 AM Charis Lopez, [employer].CNM OBGYWM [facility] 12/20/2024 8:00 AM XR [facility] MOB RGMOB [facility] 01/09/2025 2:30 PM Mathew Yang Jr., MD UROLMD [facility] 01/29/2025 9:[address] [facility] WSTR (I-STAT) RCTWS [facility] 02/06/2025 9:00 AM Becca Mir [employer].EMPLOYMENT SERVICES DIRECTOR PULMWS [facility] 02/08/2025 1:00 PM Wiley Benitez MD GYURWP [place] 07/16/2025 12:00 PM Priyanka Smith MD [facility] Appointment scheduled: No follow-up visit currently scheduled. Action taken: Refill request routed to clinician Luciano Garcia RN November 14, 2024 11:40 AM * Telephone Encounter - Viri Yoon - 11/14/2024 10:50 AM EDT Patient needs a new prescription for amitriptyline. States she was switched to Atarax, but did not like it, and chose to go back on medication she was taking before the change. The pharmacy says the prescription was cancelled because of the new one. Verified the pharmacy is correct. She says she has 1 pill left. documented in this encounterAdena [facility] Center07-01-2025 Telephone encounter Note * Telephone Encounter - Clementina Esposito APRN.CNP - 11/14/2024 5:23 PM EDT I discontinued to Atarax and reordered Elavil. The following approved medication requests have been transmitted electronically. Requested Prescriptions Signed Prescriptions Disp Refills amitriptyline (ELAVIL) 100 mg tablet 30 tablet 5 Sig: Take 1 tablet by mouth daily at bedtime. Authorizing Provider: CLEMENTINA ESPOSITO APRN.CNP [facility]07-01-2025 Telephone encounter Note* Telephone Encounter - Tonny Holliday RN - 11/14/2024 3:54 PM EDT MC message addressed in TE 11/14/2024. Tonny Holliday RN November 14, 2024 3:54 PM [facility]07-01-2025 Miscellaneous Notes* Telephone Encounter - Tonny Holliday RN - 11/14/2024 3:54 PM EDT MC message addressed in TE 11/14/2024. Tonny Holliday RN November 14, 2024 3:54 PM documented [facility] Telephone encounter Note * Telephone Encounter - Luciano Garcia RN - 11/14/2024 11:40 AM EDT Called Patient. Verified name and . Pt reports that she took the Atarax for at least 5-7 days and all the night she took this medication, she has severe insomnia and wanted to go back go back on her Elavil as this helped her sleep. Pt reports that she has only a single pill left of the Elavil since her previous script and refillswere cancelled. Refill(s) request: amitriptyline (ELAVIL) 100 mg tablet Request from: Patient Last order: 08/04/24 Last visit: Office visit with provider German Grubbs on date 10/31/24 Assessment/Plan: #1 Chronic interstitial cystitis (N30.10) Frequent nocturia, sometimes as often as every 10 minutes, and daytime urinary frequency. Minimal urinary leakage. Currently on amitriptyline 100 mg at night. Previous treatments include Myrbetriq and other overactive bladder medications and intradetrusor botox 200 units, which were ineffective. Bladder scan normal. Pelvic exam reveals thin and fragile vaginal tissues. - Discussed potential treatments including bladder instillations, PFPT and antihistamines. Bladder instillations involve instilling a cocktail of medications, including a steroid and lidocaine, into the bladder to reduce inflammation. Antihistamines like Vistaril can help by working on different rec eptors. Bladder instillations are not feasible due to the patient's travel time to office. Patient has not tried pelvic floor physical therapy due to lack of availability in her area. - Discontinue amitriptyline 100 mg at night. - Initiate Vistaril 25 mg at night. Low dose initiated due to CKD. - Consider bladder instillations if symptoms persist and logistics can be managed. 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 Patient has a history of using vaginal estrogen but has not been using it recently. - Restart vaginal estrogen 1 gram every night for 2 weeks, then twice a week thereafter. - Prescription sent to [facility] in [place] Future appointments: Future Appointments Date Time Provider Department Center 11/16/2024 8:00 AM Gemma Roberst APRN.EMPLOYMENT SERVICES DIRECTOR NRMDN [facility] 12/06/2024 8:15 AM Charis Lopez APRN.CNM [facility] 12/20/2024 8:00 AM XR [facility] MOB RGMOB [facility] 01/09/2025 2:30 PM Mathew Yang Jr., MD UROCHAPIN [facility] 01/29/2025 9:[address] [facility] WSTR (I-STAT) RCTWS [place] [facility] 02/06/2025 9:00 AM Becca Mir APRN.EMPLOYMENT SERVICES DIRECTOR PULMWS [place] [facility] 02/08/2025 1:00 PM Wiley Benitez MD GYURWP [place] 07/16/2025 12:00 PM Priyanka Smith MD FAMPWS [facility] Appointment scheduled: No follow-up visit currently scheduled. Action taken: Refill request routed to clinician Luciano Garcia RN November 14, 2024 11:40 AM [facility]07-01-2025 Telephone encounter Note* Telephone Encounter - Viri Yoon - 11/14/2024 10:50 AM EDT Patient needs a new prescription for amitriptyline. States she was switched to Atarax, but did not like it, and chose to go back on medication she was taking before the change. The pharmacy says the prescription was cancelled because of the new one. Verified the pharmacy is correct. She says she has 1 pill left. [facility]06-25-2025 [facility] [address] [place] [address] OFFICE VISIT Date of Service: 11/08/24 MR#: [id number] Acct: [id number] Name: EREN MERCHANT Rep #: [id number] Provider: KAUSHAL Alas Age/Sex: 64/F Location: [facility] Status: Signed Intake Vital Signs 06/06/24 14:36 Height 5 ft 5 in Intake Visit Reasons: 1 M FU 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: abd pain Allergies cetirizine (From Zyrte) Allergy (Intermediate, Verified 06/06/24 14:34) Rash erythromycin base Adverse Reaction (Intermediate, Verified 06/06/24 14:34) Diarrhea azithromycin Adverse Reaction (Mild, Verified 06/06/24 14:34) Diarrhea Medications ?Medication ?Instructions ?Recorded ?Confirmed ?Type aspirin 81 mg chewable tablet 81 mg PO DAILY@0800 06/1711/08/24 History cholecalciferol (vitamin D3) 25 1,000 unit PO BID 06/1710/11/24 History mcg (1,000 unit) tablet (Vitamin D3) geriatric [id number]-qogx-djpo 1 ea PO DAILY 06/28/18 History (Complete Senior tablet) mycophenolate mofetil 500 mg 1,000 mg PO DAILY 4 11/08/24 History tablet (CellCept) levothyroxine 100 mcg capsule 100 mcg PO QDAY 04/06/24 11/08/24 History ondansetron 4 mg disintegrating 4 mg PO Q8H PRN nausea and vomiting 04/06/24 11/08/24 History tablet Lactobacillus acidophilus 250 500 mmu cells PO DAILY 0 06/02/24 11/08/24 History million cell capsule (Probiotic Acidophilus) amitriptyline 50 mg tablet 100 mg PO QHS 07/07/2410/16 History carbidopa 25 mg-levodopa 100 mg 1 tab PO TID 10/11/24 11/08/24 History tablet (Sinemet) pantoprazole 20 mg tablet,delayed 20 mg PO QDAY #30 ta bs 10/11/24 11/08/24 Rx release carbidopa 25 mg tablet 25 mg PO TID 11/08/24 History docusate sodium 100 mg capsule 100 mg PO BID 11/08/24 11/08/24 History (Colace) linaclotide 72 mcg capsule 72 mcg PO QAM #30 caps 10/1611/08/24 Rx (Linzess) Have you fallen in the past year?: Yes Nurse's Note: OV 11/08/24 Pt here for a f/u and reports nausea, constipation, abdominal pain, and indigestion. Ptreports the pantoprazole is helping but colace doesn't seem to be helping with constipation. PFSH Medical History History of steroid therapy Wears glasses Post-menopausal Cancer Arthritis History of renal disease DVT (deep venous thrombosis) Easy bruising Syncope Dietary restriction History of diverticulitis Interstitial emphysema of lung Non-smoker History of edema Overactive bladder Intramural leiomyoma of uterus Esophageal dysmotility Abnormal Pap smear of vagina and vaginal HPV Positive P-ANCA titer Hypothyroid Surgical History Hx of colonoscopy History of esophagogastroduodenoscopy (EGD) Hx of tubal ligation Hx of bladder repair surgery H/O thymectomy History of spinal fusion History of cholecystectomy History of colon resection Family History Mother Thyroid disorder Hypertension Father Heart disease Hypertension COPD (chronic obstructive pulmonary disease) Social History Smoking Status: Never smoker alcohol intake: current alcohol intake frequency: holidays/special occasions only HPI HPI 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: abd pain Details: EREN MERCHANT, is a 64 F who presents to the office today for f/u. [facility]GI established March 2024 after [facility] hospitalization for seizure like activity. 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 Pt on Cellcept and prednisone for interstitial lung disease. Found to have esophageal thickening on imaging. Underwent EGD showing esophageal candidiasis stated onDiflucan and nystatin. EGD 03.07.24; severe candidiasis w/ no bleeding, LA Grade D acute and erosiveesophagitis with no bleeding, gastritis and normal duodenum. with recommendation for f/u in 8 weeks. OV 04.06.25 Pt feeling better on anti fungal medications but since discontinuingit she has had somesymptoms. Endorses burning, globus sensation and cough. Start Fluconazole 200 mg daily for 14 days.Scheduled for EGD EGD 06.06.24;- Normal esophagus. Biopsied. - Small hiatal hernia. - Normal second portion of the duodenum. OV 2 Pt doing well today. Reviewed EGD results Swallowing improved after treatment with fluconazole. Last OV 10.11.24 Pt having burning in her esophagus for a few weeks now. It does not feel like when she had esophageal candidiasis. She does not take a PPI. Overthe past few months pt has been having lower abdominal pain and constipation. 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 She started taking Colace 200 mg for three days which did not produce a bmrightaway. The pain does get better after she has a bm *Start Pantoprazole 20 mg daily, start colace 200 mg daily OV 6.25.25 Pt continues to have constipation while taking colace. She is having a bm about once a week. Her bm are hard and small balls. She will have to digitally disimpact on some occasions. She has lower abd pain that is relieved after a bm. She feels this is related to her bladder as well. ROS Const Constitutional: Positive for fatigue, frequent falls, headache(s) and weight change; No fever(s) ENT ENT: Positive for headache(s); No difficulty swallowing Gastro GI: Positive for abdominal pain, constipation, heartburn and nausea/dyspepsia; No belching, bloating, change in bowel habits, change in stool character, coffeeground emesis, cramping, diarrhea, difficulty swallowing, feeling full early, excessive flatus, incontinent of stools, Vomiting blood/hematemesis, Blood in stool, loose stools, Black,tarry stools, pain with swallowing, vomiting or other Musc Musculoskeletal: Positive for abnormal gait, joint pain, back pain, muscle weakness, stiffness and Arthritis Skin Skin: No yellowing of the eye or itchy eyes Neuro Neurology: Positive for abnormal gait, dizziness, frequent falls and headache(s) Psych Psychiatric: No anxiety and No depression Endo Endocrine: Positive for fatigue and weight change Aller/Imm Allergy/Immunologic: No itchy eyes Danilo/Lymp Hematologic/Lymphatic: No easy bleeding or easy bruising Exam Const General: cooperative and healthy appearing Resp Effort & Inspection: normal respiratory effort Cardio Rate: regular rate Rhythm: regular rhythm GI Inspection: normal to inspection Auscultation: normal bowel sounds Palpation: soft Assessment and Plan Assessment and Plan (1) Constipation: Status: Acute Plan: Eren is a 64 yo female pt here today for f/u regarding her constipation. Pt hasbeen taking colace with no relief. her last colonoscopy was in 2018. She will undergo repeat colonoscopy at this time. I have started her on Linzess 72 mcg daily. -Colonoscopy -Start Linzess 72 mcg daily -f/u after procedure (2) Abdominal pain: Status: Acute Medications: New linaclotide (Linzess) 72 mcg PO QAM 30 caps 1RF Coding Level of Care Code Off vis,est,level 3 Diagnoses Constipation K59.00 Abdominal pain R10.9 Clinical Quality Measures Falls Risk Screening/Assistive Devices Have you fallen in the past year?: Yes 11/08/24 0832 sov PA> Date _ Hilary EASLEY Cosigner Signature: Date (if applicable) CC: ~ [facility]06-17-20[facility] History of Present illness Narrative* Leandro Vargas, PT - 10/31/2024 2:51 PM EDT Images from the original note were not included. Episode Visit Count: 5 Therapist That Will Accept/Oversee The Plan Of Care: Leandro Vargas PT Start of Care Date: 09/29/23 Onset Date: 02/14/25 Plan of Care Certification Date: 09/28/24 Next Certification Due Date: 11/02/24 Patient Identified by Name and Date of : Yes REHABILITATION AND SPORTS THERAPY PHYSICAL THERAPY DISCONTINUANCE OF CARE PLAN OF CARE UPDATE: Assessment: Eren Javier Merchant is discontinued from Physical Therapy services due to Patient/Client declining further intervention.. Patient was seen for 5 visits from Start of Care Date: 09/29/23 to 10/31/2024 and treatment included: Therapeutic exercise, Manual therapy, and Self-custodial management. Goals for Episode of Care: established 09/29/23 Pt will be able to stand for 15 minutes without having to sit down due to quad fatigue for improved standing tolerance to cook and talk to people in the community and at home [place] in home exercise program. Increased strength of BLE to 5/5 for improved safety with stair negotiation and performance of light to moderate ADL's Pt will be able to demo Tandem stance for 15 sec without LOB Patient Goals: Improve her strength and balance SUBJECTIVE: Pt states she gets the exercises in 3 days a week. Pt is hoping to be done with the exercises. Patient Goals: Improve her strength and balance Functional Limitations: walking, standing Prior Level of Function: Independent without limitations Intake Information: Prescription present Previous Treatment: None Pain: Pain Pain Level: 0 PROMIS Scales 10/30/2024 10/01/2024 Higher is Better Phys Func - T Score 30 (moderate dysfunction) 30 (moderate dysfunction) Phys Func - Percentile 2 2 Self-Eff Symptom - T Score 36 (Low) 44 (Average) Self-Eff Symptom - Percentile 8 27 T-scores: mean of general population = 50. 5 points is clinically meaningfully difference Percentiles provide an indication of how the patient's score ranks in relation to the general population. Higher percentile rankings indicate better function/quality of life. 50th percentile is the average of the general population and indicates half of respondents had a worse score. OBJECTIVE MEASURES WITH LEVEL OF FUNCTION: LE AROM R LE AROM: WFL L LE AROM: WFL LE Strength R Hip Flexion (L2): 4+/5 R Knee Extension (L3): 5/5 R Ankle Dorsiflexion (L4): 4+/5 L Hip Flexion (L2): 4+/5 L Knee Extension (L3): 4+/5 L Ankle Dorsiflexion (L4): 4+/5 Functional Performance Test Results 30 Second Chair Stand Test: 14 reps TREATMENT: Neuromuscular Re-Education: 1: All objective measures taken 2: NBOS eyes open on pad x 30 3: NBOS eyes closed on pad x 30 sec 4: Tandem walking 12 feet x2 5: F/B taps on tilt board x 20 6: Balancing on tilt board x 20 sec Skilled Intervention: Skilled judgment used to assess appropriate program for balance and coordination activity. Ensured patient safety with use of CGA Billing Neuromuscular Re-Education Treatment Minutes: 29 Skilled Treatment Time Minutes (timed and untimed codes): 29 Total Session Time (minutes): 29 Session Start Time : 1452 Session Stop Time : 1521 Leandro Vargas PT documented in this encounterA[facility]06-[facility] History of Present illness Narrative* German Grubbs, HAILE.EMPLOYMENT SERVICES DIRECTOR - 10/31/2024 9:00 AM EDT Female Pelvic Medicine & Reconstructive Surgery Follow-Up Recording using [employer] software for draft documentation of the visit was discussed with the patient/authorized parts representative; all questions welcomed and answered. Patient/authorized parts representative agreed to proceed CHIEF COMPLAINT: Eren Merchant is a 64 year old female, who presents for a follow-up of urinary urgency, urinary frequency, lower pelvic pressure. History since last visit: The patient is a 64-year-old female with a history of interstitial cystitis, presenting for evaluation of persistent urinary frequency and nocturia. The patient reports ongoing urinary frequency bothduring the day and night. At night, she urinates as frequently as every 10 minutes, though sometimes she can go up to 1.5 hours between voids. During the day, she urinates frequently and notes that she is supposed to drink 2 liters of water and 700 mL of another fluid for her kidneys, but is unableto do so because it results in spending excessive time in the bathroom. She experiences occasional urinary leakage if she does not reach the bathroom in time or delays urination. She mentions that she seldom passes a gas station without needing to stop to urinate. She is currently taking amitriptyline 100 mg at night, which she feels helps reduce the frequency of urination and allows her to get some sleep, though she still experiences significant nocturia. Shehas tried overactive bladder medications in the past, including Myrbetriq, which were ineffective and caused discomfort due to urinary retention. She denies current use of Pyridium. She has not undergone pelvic floor physical therapy due to lackof availability in her area and transportation limitations. She is not currently sexually active and has not been using vaginal estrogen cream, though she has some at home. She has a history of kidney stones and has undergone procedures for stone removal, during which herbladder was noted to bleed easily. She does not drive currently due to recent falls and episodes of syncope, during which she hit her head and believes she may have had a small brain bleed, causing floaters in her vision. GFR 41. US KIDNEY/BLADDER 08/14/24: Right renal cyst. No hydronephrosis Urinary Incontinence: no Voiding Dysfunction: yes Urinary Frequency: yes Urinary Urgency: yes Prolapse Symptoms: no Defecatory Dysfunction: no Fecal Incontinence: no Abnormal Bleeding: no Pain: no Abnormal Vaginal Discharge: no I have confirmed and edited as necessary, the PFSH obtained by others. German Grubbs APRN.EMPLOYMENT SERVICES DIRECTOR [place] Se[place] offered: Patient declines. SENSITIVE EXAM: The sensitive examination was discussed with the Patient or Patient's Authorized Talent Development Specialist. As applicable, any other physician, advance practice provider, medical student, or other health professional student that will be observing or involved in the sensitive examination for educational or training purposes was discussed with the Patient or Authorized Talent Development Specialist. The Patient or Authorized Talent Development Specialist has agreed to proceed with the sensitive examination. (Sensitive examination includes inspection and/or palpation of the breasts, pelvis, prostate and anorectal regions). OBJECTIVE: BP 109/71 Pulse 67 Resp 16 Wt 160 lb (72.6kg) LMP 01/07/2011 General: Well appearing, alert, in no acute distress, well-hydrated, well nourished. Abdomen: Deferred Pelvic: Ext. Genitalia: No lesions, loss of architecture, atrophic, Q-tip test negative Vagina: atrophic epithelium POP-Q: Prolapse Noted: No Cervix: poorly visualized due to atrophy Urethra: Normal Bimanual: Normal size anteverted uterus, No masses, pain elicited with palpation of anterior wall Rectovaginal: Deferred Levator Ani Tone: normal Levator Ani Tenderness: (No Saddle Sensory Exam (S2-4): normal UA results: N/A Bladder scan: Nurse performed and PVR 0 mL Assessment/Plan: #1 Chronic interstitial cystitis (N30.10) Frequent nocturia, sometimes as often as every 10 minutes, and daytime urinary frequency. Minimal urinary leakage. Currently on amitriptyline 100 mg at night. Previous treatments include Myrbetriq and other overactive bladder medications and intradetrusor botox 200 units, which were ineffective. Bladder scan normal. Pelvic exam reveals thin and fragile vaginal tissues. - Discussed potential treatments including bladder instillations, PFPT and antihistamines. Bladder instillations involve instilling a cocktail of medications, including a steroid and lidocaine, into the bladder to reduce inflammation. Antihistamines like Vistaril can help by working on different rec eptors. Bladder instillations are not feasible due to the patient's travel time to office. Patient has not tried pelvic floor physical therapy due to lack of availability in her area. - Discontinue amitriptyline 100 mg at night. - Initiate Vistaril 25 mg at night. Low dose initiated due to CKD. - Consider bladder instillations if symptoms persist and logistics can be managed. 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 Patient has a history of using vaginal estrogen but has not been using it recently. - Restart vaginal estrogen 1 gram every night for 2 weeks, then twice a week thereafter. - Prescription sent to [facility] in [place]. Medical Decision Making: Problems: Moderate: 2+ stable chronic illnesses Data: Unique test result(s) reviewed: 1 Risk: Moderate: Drug management Medical Decision Making Level: 4 - Moderate German Grubbs APRN.EMPLOYMENT SERVICES DIRECTOR documented in this encounterAdena [facility]06-[facility] History of Present illness Narrative* Karen Alcantara MD - 10/26/2024 9:30 AM EDT Images from the original note were not included. . [facility] [place] Note Patient name: Eren Merchant PCP: Priyanka Smith MD CC: Follow-up HPI: Eren Merchant 64 year old female never smoker with PMH significant for hypothyroidism, thymoma, GERD, esophageal dysmotility, NSIP-ILD. ILD history dates back to 2019 when she had chest CT that showed peribronchovascular groundglass opacities and central traction bronchiectasis with positivep- ANCA/MPO. Status post VATS biopsy showed cellular NSIP, patient presented at ILD conference with suspicion for connective tissue disorder rather than vasculitis. She was started on prednisone and CellCept. CellCept increased to 1500 mg a day and 5 mg of prednisone after surveillance CT showed newgroundglass infiltrates. She declined continued follow-up in the ILD clinic due to difficulty with travel. For her esophageal dysmotility she was on Reglan and proton pump inhibitor. Reglan was discontinued due to development of tardive dyskinesia. She has a history of significant Brad esophagitis thus her prednisone was discontinued. Recent past history is notable for hospital admission with sepsis due to Proteus mirabilis urinary tract infection, hydronephrosis due to nephrolithiasis and MANJIT. At [facility] with me, the plan was to repeat her CT of the chest in light of discontinuation of her prednisone. She was maintained on CellCept and had follow-up with nephrology for her stage 4 CKD. Cellcept decreased to 1000 mg a day in light of her stage [address] showed stable findings of bronchiectasis and no groundglass infiltrates. PFTs today show slight reduction in diffusion with normalairflow and capacity. She denies any change in her respiratory symptoms. Specifically, no increased shortness of breath, cough, chest pain. No constitutional symptoms. Renal function has improved to stage 3 which has been stable. DATA: PFT: Labs: Component Ref Range & Units 2 wk ago (09/28/24) Albumin 3.9 - 4.9 g/dL 4.1 Calcium, Total 8.5 - 10.2 mg/dL 10.0 Phosphorus 2.7 - 4.8 mg/dL 3.2 Glucose 74 - 99 mg/dL 106 High BUN 7 - 21 mg/dL 24 High 33 High 25 High Creatinine 0.58 - 0.96 mg/dL 1.50 High 1.77 High 1.73 High Sodium 136 - 144 mmol/L 137 138 142 Potassium 3.7 - 5.1 mmol/L 4.3 3.9 3.9 Chloride 98 - 107 mmol/L 101 103 108 High CO2 22 - 30 mmol/L 24 22 22 Anion Gap 8 - 15 mmol/L 12 13 12 Estimated Glomerular Filtration Rate >=60 mL/min/1.73m 38 Low Imaging / Diagnostic Studies: DATE OF EXAM: Jun 12 2024 11:43AM [facility] 0541 - CT CHEST WO IVCON / IMPRESSION: 1. Unchanged bronchiectasis and subpleural fibrosis compared to 11/02/2023. No honeycombing. 2. Moderate air trapping. 3. Small hiatal hernia. 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 Erythromycin Diarrhea Hay Fever [Seasonal* Cough Zyrtec [Cetirizine * Itching pantoprazole DR (PROTONIX) 20 mg tablet^Take 1 tablet by mouth once daily.^Disp: ^Rfl: carbidopa-levodopa (SINEMET 25-100) 25-100 mg per tablet^Take 1 tablet by mouth three times a day.^Disp: 270 tablet^Rfl: 3 carbidopa (LODOSYN) 25 mg tab^Take 1 tablet by mouth three times a day.^Disp: 270 tablet^Rfl: 3 mycophenolate Mofetil (CELLCEPT) 500 mg tablet^Take 1 tablet by mouth two times a day.^Disp: 60 tablet^Rfl: 5 amitriptyline (ELAVIL) 100 mg tablet^Take 1 tablet by mouth daily at bedtime.^Disp: 30 tablet^Rfl: 5 levothyroxine (SYNTHROID) 100 mcg tablet^Take 1 tablet by mouth once daily. Take on empty stomach^Disp: 90 tablet^Rfl: 3 ondansetron (ZOFRAN) 4 mg tablet^Take 1 tablet by mouth every 8 hours as needed for nausea/vomiting.^Disp: 90 tablet^Rfl: 11 calcium carbonate 600 mg-cholecalciferol 400 units 600 [...] 1 capsule by mouth once daily.^Disp: ^Rfl: Social History Tobacco Use Smoking status: Never [...] PAST SURGICAL HISTORY Procedure Laterality Date ARTHRP INTERCARPAL/CARP/MTCRPL JT INTERPOSITION Right 10/13/2017 Right thumb CMC arthroplasty with [...] UNI/BI Tubal ligation LX PARTIAL COLECTOMY 12/23/2017 [facility] lap lysis of adhesions, left oopherectomy, [...] No fevers, chills, nightsweats, unintended weight loss EYES: No visual changes CARDIOVASCULAR: No chest pain, dyspnea, palpitations, orthopnea, edema. PULM: See HPI GI: No dysphagia/odynophagia, problematic reflux : No recent urinary tract infection MUSC-SKEL: No joint pain or swelling PSY: No concerns regarding depression, anxiety INTEGUMENTARY: No new skin changes PHYSICAL EXAMINATION: BP 102/58 Pulse 101 Resp 14 Ht 5' 3.5 (1.61m) Wt 160 lb (72.6kg) SpO2 100% LMP 01/07/2011 BMI 27.89 kg/(m^2). General Appearance: Age-appropriate female, NAD. Skin: Vitiligo. Head: Normocephalic, no masses, lesions, tenderness or abnormalities. Eyes: Sclera, conjunctiva normal Neck: No masses or adenopathy. Lungs: Not labored, normal to percussion, crackles right base and inspiratory squeak right upper lobe. Heart: Regular rate and rhythm, no murmurs gallops. Extremities: No edema or clubbing. Assessment/Plan: 1. ILD/NSIP -Slight reduction in diffusing capacity will update CT of the chest 2. Bronchiectasis, uncomplicated -Asymptomatic. Does not require aggressive mucus clearance techniques 3. Stage 3b chronic kidney disease -Stable. Follows with nephrology 4. On CellCept therapy - Continue current dose of CellCept 500 mg twice daily Karen Alcantara MD Res[facility] [place] documented in this encounterA[facility]06[facility] History of Present illness Narrative* Eufemia Anglin, PT, DPT - 10/17/2024 11:07 AM EDT Program_ID:[id number] Access Code: [email or web address] URL: [email or web address] Date: 10-17-2024 Prepared By: Leandro Vargas Program Notes Exercises - Sit to Stand - 1 x daily - 7 x weekly - 4 sets - 15 reps - Forward Step Up with Counter Support - 1 x daily - 7 x weekly - 4 sets - 15 reps - Forward Step Up with Counter Support - 1 x daily - 7 x weekly - 4 sets - 15 reps - Heel Raises with Counter Support - 1 x daily - 7 x weekly - 4 sets - 20 reps - Seated Long Arc Quad - 1 x daily - 7 x weekly - 3 sets - 10 reps - Seated March - 1 x daily - 7 x weekly - 3 sets - 10 reps - Tandem Stance - 1 x daily - 7 x weekly - 3 sets - 10 reps * Eufemia Anglin PT, DPT - 10/17/2024 10:31 AM EDT Episode Visit Count: 4 Therapist That Will Accept/Oversee The Plan Of Care: Leandro Vargas PT Start of Care Date: 09/29/23 Onset Date: 02/14/25 Plan of Care Certification Date: 09/28/24 Next Certification Due Date: 11/02/24 Patient Identified by Name and Date of : Yes REHABILITATION AND SPORTS THERAPY PHYSICAL THERAPY TREATMENT NOTE ASSESSMENT: Eren Merchant tolerated the session with expected muscle soreness. She demonstrated LBP with STS holding med ball, reduced pain with performance without med ball. Challenge with balanceprogression step up to bosu ball, and ayan walking in // bars. Increased low back soreness following standing exercises. The patient will continue to benefit from ongoing skilled physical therapy to progress toward set goals. PLAN FOR NEXT VISIT: PN SUBJECTIVE: HEP going well. UNable to do all of them at once due to low back pain. Denies falls. Pain: Pain Pain Level: 0 Post Treatment Pain Post Treatment Symptoms: a little sore in the low back OBJECTIVE MEASURES WITH LEVEL OF FUNCTION: Gait Gait Observation: Able to ambulate in PT department without rollator. Patient slightly pigeon toed.1 instance of patient tripping over left foot, able to self correct TREATMENT: Therapeutic Exercise: 1: Seated LAQ 4# at ankles 2x15 Bilat 2: Seated hip march 4# at ankles [id number] 3: STS with 11# med ball, first set med ball removed at rep 7 due to low back pain, second set x15 no med ball 4: HEP review Skilled Intervention: Patient was educated in proper exercise technique and purpose for exercises. Reviewed and educated patient on additions/changes for home exercise program as above (*). Skilled judgment was used in selection of appropriate interventions. Provided written instruction for home exercise program to facilitate proper performance and compliance. Correct performance of therapeutic exercises was facilitated with verbal and visual cuing. Neuromuscular Re-Education: 1: NBOS eyes open x 30 2: NBOS eyes closed x 30 sec 3: Step up to bosu in // bars 2x10 bilat 4: Tandem stance 2 x 30 sec bilat 5: ayan walking fwd and lateral in // bars 6 hurdles x2 passes each Skilled Intervention: Skilled judgment used to assess appropriate program for balance and coordination activity. Ensured patient safety with use of // bars for UE support and CGA as needed. Billing Therapeutic Exercise Treatment Minutes: 21 Neuromuscular Re-Education Treatment Minutes: 17 Skilled Treatment Time Minutes (timed and untimed codes): 38 Total Session Time (minutes): 38 Session Start Time : 1031 Session Stop Time : 1109 Eufemia Anglin PT, DPT documented in this encounterAdena [facility]06-03-2025 [facility] Telephone encounter Note* Telephone Encounter - Carmita Avila - 10/17/2024 7:56 AM EDT Pt requesting refill as follows: Last FUV September 2024 with [facility] Requested Prescriptions Pending Prescriptions Disp Refills carbidopa-levodopa (SINEMET 25-100) 25-100 mg per tablet 270 tablet 3 Sig: Take 1 tablet by mouth three times a day. carbidopa (LODOSYN) 25 mg tab 270 tablet 3 Sig: Take 1 tablet by mouth three times a day. Upon approval, script will be sent electronically to the patient's pharmacy. Carmita Payton, Fastener Technologist III [facility]06-03-[facility]25 Miscellaneous Notes* Telephone Encounter - Carmita Avila - 10/17/2024 7:56 AM EDT Pt requesting refill as follows: Last FUV September 2024 with [facility] Requested Prescriptions Pending Prescriptions Disp Refills carbidopa-levodopa (SINEMET 25-100) 25-100 mg per tablet 270 tablet 3 Sig: Take 1 tablet by mouth three times a day. carbidopa (LODOSYN) 25 mg tab 270 tablet 3 Sig: Take 1 tablet by mouth three times a day. Upon approval, script will be sent electronically to the patient's pharmacy. Carmita Payton, Fastener Technologist III documented in this encounterAdena [facility]05-28-2025 Evaluation note* Diagnosis Onset Date Resolution Status Admit Date Abdominal pain acute October 11, 2024 9:53am Candidiasis of esophagus acute October 11, 2024 9:53am Constipation acute October 11 9:53am GERD (gastroesophageal reflu x disease) chronic October 11, 2024 9 :53am Abdominal pain acute November 08, 2024 7:46am Constipation acute November 08, 025 7:46am [facility] Work Phone: 1(474) 863-401305-28-2025 Evaluation note* Diagnosis Onset Date Resolution Status Admit Date Abdominal pain acute October 11, 2024 9:53am Candidiasis of esophagus acute October 11, 2024 9:53am Constipation acute October 11 9:53am GERD (gastroesophageal reflu x disease) chronic October 11, 2024 9 :53am Abdominal pain acute November 08, 2024 7:46am Constipation acute November 08, 2 025 7:46am Abdominal pain acute December 11:52am Constipation acute December 22, 2024 11:52am Irritable bowel syndrome wit h constipation acute December 22, 2024 11:52am [facility] Work Phone: 1(668) 575-130205-28-2025 Evaluation note* Diagnosis Onset Date Resolution Status Admit Date Abdominal pain acute October 11, 2024 9:53am Candidiasis of esophagus acute October 11, 2024 9:53am Constipation acute October 11 9:53am GERD (gastroesophageal reflu x disease) chronic October 11, 2024 9 :53am Abdominal pain acute November 08, 2024 7:46am Constipation acute November 08, 2 025 7:46am Abdominal pain acute December 11:52am Constipation acute December 22, 2024 11:52am Irritable bowel syndrome wit h constipation acute December 22, 2024 11:52am Constipation acute December 29, 2024 7:52am Irritable bowel syndrome wit h constipation acute December 29 7:52am [facility] Work Phone: 1(295) 706-875605-27-2025 History of Present illness Narrative* Leandro Vargas, PT - 10/10/2024 11:36 AM EDT Program_ID:[id number] Access Code: [email or web address] URL: [email or web address] Date: 10-10-2024 Prepared By: Leandro Vargas Program Notes Exercises - Sit to Stand - 1 x daily - 7 x weekly - 4 sets - 15 reps - Forward Step Up with Counter Support - 1 x daily - 7 x weekly - 4 sets - 15 reps - Forward Step Up with Counter Support - 1 x daily - 7 x weekly - 4 sets - 15 reps - Heel Raises with Counter Support - 1 x daily - 7 x weekly - 4 sets - 20 reps * Leandro Vargas PT - 10/10/2024 11:01 AM EDT Episode Visit Count: 3 Therapist That Will Accept/Oversee The Plan Of Care: Leandro Vargas PT Start of Care Date: 09/29/23 Onset Date: 02/14/25 Plan of Care Certification Date: 09/28/24 Next Certification Due Date: 11/02/24 Patient Identified by Name and Date of : Yes REHABILITATION AND SPORTS THERAPY PHYSICAL THERAPY TREATMENT NOTE ASSESSMENT: Eren Merchant tolerated the session with decreased symptoms. She demonstrated difficulty with increased loads during the exercises. The patient will continue to benefit from ongoing skilled physical therapy to progress toward set goals. PLAN FOR NEXT VISIT: LE strengthening and balance training. SUBJECTIVE: Did not do exercises over the weekend because she did not feel up to it. Some things are getting a little easier to do. Pain: Pain Pain Level: 0 OBJECTIVE MEASURES WITH LEVEL OF FUNCTION: LOB to the R x 3 self corrected by grabbing onto parallel bars Decreased L hip flexion observed during hip march exercise compared to the R hip TREATMENT: Therapeutic Exercise: 1: Seated LAQ 4# at ankles x 10 Bilat 2: Seated hip march 4# at ankles x 10 3: STS 2 x 15 4: 10 F step-up wearing 4# at ankles 2 x 15 RLE and then LLE 5: B heel raises 2 x 20 Skilled Intervention: Patient was educated in proper exercise technique and purpose for exercises. Provided written instruction for home exercise program to facilitate proper performance and compliance. Neuromuscular Re-Education: 1: NBOS eyes open x 30 (at parallel bars) 2: NBOS eyes closed x 30 sec 3: Partial tandemstance 2 x 30 sec 4: Tandem stance 2 x 30 sec Skilled Intervention: Skilled judgment used to assess appropriate program for balance and coordination activity. Billing Therapeutic Exercise Treatment Minutes: 26 Neuromuscular Re-Education Treatment Minutes: 13 Skilled Treatment Time Minutes (timed and untimed codes): 39 Total Session Time (minutes): 39 Session Start Time : 1101 Session Stop Time : 1140 Leandro Vargas PT documented in this encounterAdena [facility]05-27-2025 [facility]05-19-2025 [facility]05-19-2025 History of Present illness Narrative* Leandro Vargas PT - 10/02/2024 7:48 AM EDT Episode Visit Count: 2 Therapist That Will Accept/Oversee The Plan Of Care: Leandro Vargas PT Start of Care Date: 09/29/23 Onset Date: 02/14/25 Plan of Care Certification Date: 09/28/24 Next Certification Due Date: 11/02/24 Patient Identified by Name and Date of : Yes REHABILITATION AND SPORTS THERAPY PHYSICAL THERAPY TREATMENT NOTE ASSESSMENT: Eren M Shonda tolerated the session with expected muscle soreness. She demonstrated good form with all therapeutic exercises. The patient will continue to benefit from ongoing skilled physical therapy to progress toward set goals. PLAN FOR NEXT VISIT: Continue LE strengthening SUBJECTIVE: She did ok with the exercises. Pain: Pain Pain Level: 0 OBJECTIVE MEASURES WITH LEVEL OF FUNCTION: Slow marisol TREATMENT: Therapeutic Exercise: 1: Seated lumbar flexion stretch 3 x 30 sec 2: STS 2 x 10 3: 6 F step-upn 2 x 10 each leg 4: B calf RAISES 2 X 15 5: F eccentric step downs 6 steps 2 x 10 each leg 6: Seated alt july 3# 2 x 10 (Some dull pain at the L hip joint with this per patient report) 7: Seated LAQ 3# at ankles 2 x 10 Skilled Intervention: Patient was educated in proper exercise technique and purpose for exercises. Correct performance of therapeutic exercises was facilitated with verbal cuing. Billing Therapeutic Exercise Treatment Minutes: 40 Skilled Treatment Time Minutes (timed and untimed codes): 40 Total Session Time (minutes): 40 Session Start Time : 747 Session Stop Time : 827 Leandro Vargas PT documented in this encounterAdena [facility]05-15-2025 [facility]05-15-2025 History of Present illness Narrative* Leandro Vargas PT - 09/28/2024 9:19 AM EDT Episode Visit Count: 1 Therapist That Will Accept/Oversee The Plan Of Care: Leandro Vargas PT Start of Care Date: 09/29/23 Onset Date: 02/14/25 Plan of Care Certification Date: 09/28/24 Next Certification Due Date: 11/02/24 Patient Identified by Name and Date of : Yes REHABILITATION AND SPORTS THERAPY PHYSICAL THERAPY EVALUATION PLAN OF CARE: Assessment: Eren Merchant presents with chief complaint of Falls that interferes with walking, standing . The patient presents with impairments in ADL's, balance, independence in exercise, and strength. Patient did not complete the PROMIS (Patient Reported Outcome Measures Information System). Prognosis for therapy is Good due to: current objective clinical presentation . Most pertinent findings of today's exam are BLE weakness, LLE > RLE, and decreased muscular endurance. The patient willbenefit from skilled therapy services to meet the goals established for this plan of care as noted below. Goals for Episode of Care: established 09/29/23 Pt will be able to stand for 15 minutes without having to sit down due to quad fatigue for improvedstanding tolerance to cook and talk to people in the community and at home [place] in home exercise program. Increased strength of BLE to 5/5 for improved safety with stair negotiation and performance of light to moderate ADL's Pt will be able to demo Tandem stance for 15 sec without LOB Patient Goals: Improve her strength and balance Time Frame for Goals and Treatment : 11/23/24 Planned Interventions, Frequency, and Duration: Current Frequency: 1x/week Duration: 4 weeks Total Number of Visits Planned: 4 Planned Treatment Interventions: Therapeutic exercise (84844), Neuromuscular re- education (03914), Manual therapy (16872), Self-custodial management (17650), Gait Training (67120) PLAN FOR NEXT VISIT: LE strengthening and balance training at the parallel bars. Focus on quadriceps strength Patient demonstrates good understanding of plan of care and treatment. The above goals and plan of care were discussed and agreed upon by patient/family. SUBJECTIVE: Falls. Does not get any spinning. Can get light headed and soemtimes her BP drops. The legs can quiver. Can get light-headed going from sitting to standing. If she stands for too long then she can get light-headed. Pt is supposed to drink 2 Liters of water. She drinks 50-55 ounces of water because she gets full. Patient Goals: Improve her strength and balance Functional Limitations: walking, standing Prior Level of Function: Independent without limitations Intake Information: Prescription present Previous Treatment: None Falls History # of falls in past year: 4 # of falls resulting in an injury in past year: 1 Pain: Pain Pain Level: 0 OBJECTIVE MEASURES WITH LEVEL OF FUNCTION: Posture / Alignment Posture: Forward head LE AROM R LE AROM: WFL L LE AROM: WFL LE Strength R Hip Flexion (L2): 4/5 R Knee Extension (L3): 4/5 R Ankle Dorsiflexion (L4): 4/5 L Knee Extension (L3): 4-/5 L Ankle Dorsiflexion (L4): 3+/5 Mobility Stand To Sit: Independent Gait Gait: Modified Independent Gait Distance (feet): 50 Gait Device: Rollator Gait Deviations: General Deviations General Deviations/Observations: Marisol decreased Functional Performance Test Results Assistive Device: Rollator 30 Second Chair Stand Test: 9 reps 4 Stage Balance Test Narrow base of support (sec): 0 sec Semi-tandem base of support (sec): 15 sec (Pt's LLE fatigues and pt starts to lose balance forward and to the left) Tandem base of support (sec): 0 sec The LLE started to feel weak and quiver after 3 minutes Education: Education Learning Preferences: Demonstration, Explanation, Performance, Printed Materials Barriers: None Learning/educational needs: Home exercise program, Plan of Care, Changes in Plan of Care Education Provided: Yes, see treatment interventions for education provided Education Provided To: Patient Education Mode/Type: Demonstration, Explanation/Discussion, Literature/Printed Materials, Performance Response to Education/Teach Back: States/Identifies, Return Demonstration TREATMENT: PT Treatment Interventions: Therapeutic Exercise Evaluation Therapeutic Exercise: 1: Discussed exam findings, purpose of the HEP and the HEP handout was provided to the pt. HEP discussed in detail with how to safely and properly perform each therapeutic exercise. 2: STS x 10 (Do this 3-4 sets a day) 3: Standing x 120 sec (discussed to do this 3-4 times a day and slowly increase standing time as tolerated. Do this with a counter in front of you with fingers on the counter for safety.) Skilled Intervention: Patient was educated in proper exercise technique and purpose for exercises. Correct performance of therapeutic exercises was facilitated with verbal and visual cuing. Billing * Evaluation Low Complexity: 1 Unit Therapeutic Exercise Treatment Minutes: 12 Skilled Treatment Time Minutes (timed and untimed codes): 41 Total Session Time (minutes): 41 Session Start Time : 918 Session Stop Time : 999 Leandro Vargas PT documented in this encounterAdena [facility]05-09-2025 Instructions* Patient Instructions* Rika Adam APRN.EMPLOYMENT SERVICES DIRECTOR - 09/22/2024 1:46 PM EDT It was a pleasure to see you today. We addressed the following diagnoses: Parkinsonism, unspecified parkinsonism type (hcc) (primary encounter diagnosis) My recommendations are as follows: 09/22/2024 Visit: Parkinsonism - Start Sinemet titration as follows: Week 1 and 2: Take half a tablet at 8a, 1p, 6p Week 3 and 4: Take 1 tablet at 8a, half a tablet at 1p, 6p Week 5 and 6: Take 1 tablet at 8a and 1p, half a tablet at 6p Week 7 and beyond: Take 1 tablet at 8a, 1p, 6p -Take Carbidopa 25 mg with each dose of Sinemet. -Starting week 3, take Zofran in the morning and 8 hours later. -Take Sinemet with food. -Call with any questions or concerns or send a [employer] Follow up as scheduled with Gemma November 16 Movement Disorders Medication Schedule: Medications AM Lunch PM Sinemet 25/100 1 1 1 No follow-ups on file. If there are any concerns before your next visit, please call or you can send a message through [employer]. You can also now schedule and select appointments through [employer]. Rika Adam APRN.SAMIR documented in this encounterAdena [facility]05-09-2025 [facility]05-09-2025 History of Present illness Narrative* Rika Adam APRN.EMPLOYMENT SERVICES DIRECTOR - 09/22/2024 1:37 PM EDT [facility] - FOLLOW UP EVALUATION Priyanka Smith MD [id number] [facility] [id number] Dear Priyanka Smith MD: I had the pleasure of seeing Ms. Merchant for follow-up today. As you know she is a 64 year old right-handed female with a history of tremor since 2021. She is seen with family. Subjective Previous Plan- 08/03/2024 Visit: # Parkinsonism, unspecified Parkinsonism type (HCC) (G20.C) Resting tremor, rigidity, and bradykinesia observed. Symptoms have improved since discontinuation of metoclopramide and propranolol. Mild kinetic intention tremor noted on examination. Suspected mildParkinson's disease. - Initiate Sinemet at half tablet TID with meals; increase to full tablet after one month if tolerated. - Educated patient on potential side effects, including levodopa-induced dyskinesia. - Scheduled follow-up in two months on November 16. # Neuroleptic-induced tardive dyskinesia (G24.01) Involuntary tongue movements have significantly decreased since discontinuation of metoclopramide in December. - Monitor for any recurrence of dyskinesia with initiation of Sinemet. - Added amantadine to adverse drug list due to potential renal complications. # Stage 3b chronic kidney disease (HCC) (N18.32) Renal function has improved from 19% to 31% GFR. Patient is under regular nephrology care with frequent blood work monitoring. - Continue current nephrology management. - Avoid amantadine due to renal metabolism. # Pain of right shoulder region (M25.511) Shoulder pain with radiation to the back and shoulder blades. Currently on a short course of steroids with some improvement. Suspected musculoskeletal tightness possibly related to Parkinsonism. - Continue current steroid regimen. - Advised on the potential benefits of Sinemet in reducing stiffness and improving range of motion. Interval History: Was unable to tolerate Sinemet due to nausea and vomiting when she started 1 tab tid. She would getsick in the afternoon. She tolerated the first and third doses ok without getting sick. She tried extra carbidopa and zofran and ate with it and none of this helped still very nauseated. Fell down the steps on Easter and hit her head. When she falls she doesn't have any warning, she just falls. Denies dizziness or being aware she is going to fall. Went to PCP who did xrays of face, which was negative. She saw eye doctor who said she had dried blood behind the eye after a fall. She is no longer going upstairs. She is no longer driving. She had a few other falls, standing at the counter in kitchen and fell down. Doesn't feel dizzy or realize she is going down. Ends up on the floor. This happened in the past when she was in renal failure, Had kidney stones blocking ureters. Insurance company denied CND skin biopsy. Movement Disorders Medications Schedule - as of the start of the visit: Medications AM Lunch PM Sinemet 25/100 1 1 1 Other Movement Disorder Prior Therapies Propranolol Cannot take Topamax and Zonisamide due to kidney stones Questionnaires: In addition, the following areas that may be affected by abnormal involuntary movements were evaluated: Daily activities Difficulties with eatin (none) Difficulties in dressin (none) Difficulties with hygiene activities: Yes (slight) Difficulties with handwriting: Yes (mild) Difficulties with doing hobbies and other activities: Yes (slight) Difficulties turning in bed: Yes (slight) Difficulties getting out of bed, car or chair: Yes (slight) Tremors/Gait/Balance Shaking or tremors: Yes (mild) Walking and balance problems: Yes (moderate) Number of falls in the Last Month: 3 Gait freezin (none) Autonomic/Pain Lightheadeness on standing: Yes (moderate) Urinary problems: Yes (moderate) Constipation problems: Yes (slight) Pain and other sensations: Yes (mild) Speech/Swallowing Speech problems: 0 (none) Droolin (none) Chewing and swallowing problems: 0 (none) Sleep/Fatigue Sleep problems: Yes (mild) Daytime sleepiness: Yes (mild) Fatigue: Yes (mild) Mood/Behavior Depression: PHQ-9 Score: 4 usually representing no significant (0-4) depression. Anxiety: YOVANY-7 Total Score: 0 usually representing no significant (0-4) anxiety. Finally, the following table shows the patient's overall global physical and mental health using the PROMIS scale: PROMIS-10 Flowsheet Row Office Visit from 09/22/2024 in Neurology Office Visit from 05/30/2024 in Neurology Global Physical Health T Score 34.9 50.8 Global Mental Health T Score 50.8 67.6 0-10 Standard Pain Scale 3 4 *PROMIS-10 scoring scale: mean = 50, over 50 is above average, under 50 is below average ALLERGIES Allergen Reactions Amantadine Contraindication-Medical Surgical Has renal failure, has not been on but would avoid due to metabolism. Erythromycin Diarrhea Hay Fever [Seasonal* Cough Zyrtec [Cetirizine * Itching Current Outpatient Medications Medication Sig amitriptyline (ELAVIL) 100 mg tablet Take 1 tablet by mouth daily at bedtime. levothyroxine (SYNTHROID) 100 mcg tablet Take 1 tablet by mouth once daily. Take on empty stomach ondansetron (ZOFRAN) 4 mg tablet Take 1 tablet by mouth every 8 hours as needed for nausea/vomiting. estradiol (ESTRACE) 0.01 % (0.1 mg/gram) vaginal [...] Take 1 capsule by mouth once daily. mycophenolate Mofetil (CELLCEPT) 500 mg tablet Take 1 tablet by mouth two times a day. Current Facility-Administered Medications Medication Dose Route Frequency cosyntropin 0.25 mg injection (CORTROSYN) 0.25 mg INTRAMUSCULAR PRN Objective Vital Signs: BP 85/62 (BP Site: Left Arm, BP Position: Standing, BP Cuff Size: Large Adult) Pulse 117 Ht 165.1 cm (5' 5) Wt 74.3 kg (163 lb 12.8 oz) LMP 01/07/2011 SpO2 100% BMI 27.26 kg/m Orthostatic Vitals: None for this encounter Weight: 74.3 kg (163 lb 12.8 oz) Height: 165.1 cm (5' 5) Patient's last menstrual period was 01/07/2011. Body mass index is 27.26 kg/m . General Physical Examination: Movement Disorders Scales Performed: MDS-UPDRS Motor subscale condition of exam Medication Off/On/Naiive OFF Time of UPDRS 1331 Time of Last Medication Last Medication Taken DBS Right OFF DBS Left OFF MDS-UPDRS Motor subscale scores Speech 0-Normal. No speech problems. Facial Expression 0-Normal. Normal facial expression. Rigidity Neck 0-Normal. No rigidity. Rigidity Right Upper Extremity 0-Normal. No rigidity. Rigidity Left Upper Extremity 1-Slight. Rigidity only detected with activation maneuver. Rigidity Right Lower Extremity 1-Slight. Rigidity only detected with activation maneuver. Rigidity Left Lower Extremity 1-Slight. Rigidity only detected with activation maneuver. Finger Taps Right 1-Slight. a) the regular rhythm is broken with one or two interruptions or hesitations of the tapping movement, b) slight slowing, c) the amplitude decrements near the end of the 10taps. Finger Taps Left 2-Mild. a) 3 to 5 interruptions during tapping, b) mild slowing, c) the amplitude decrements midway in the 10-tap sequence. Hand Movements Right 0-Normal. No problem. Hand Movements Left 1-Slight. a) the regular rhythm is broken with one or two interruptions or hesitations of the movement, b) slight slowing, c) the amplitude decrements near the end of the task. Arm Movements Right 0-Normal. No problems. Arm Movements Left 1-Slight. a) the regular rhythm is broken with one or two interruptions or hesitations of the movement, b) slight slowing, c) the amplitude decrements near the end of the sequence. Toe Taps Right 0-Normal. No problem. Toe Taps Left 1-Slight. a) the regular rhythm is broken with one or two interruptions or hesitations of the tapping movement, b) slight slowing, c) the amplitude decrements near the end of the ten taps. Leg Agility Right 0-Normal. No problems. Leg Agility Left 2-Mild. a) 3 to 5 interruptions during the movements, b) mild slowness, c) the amplitude decrements midway in the task. Arise From Chair 1-Slight. Arising is slower than normal, or may need more than one attempt, or mayneed to move forward in the chair to arise. No need to use the arms of the chair. Gait 2-Mild. Independent walking but with substantial gait impairment. (She has bilateral absent arm swing) Gait Freezing 0-Normal. No freezing. Posture Stability 0-Normal. No problems: recovers with one or two steps. (deferred) Posture 2-Mild. Definite flexion, scoliosis or leaning to one side, but patient can correct postureto normal posture when asked to do so. Body Bradykinesia 1-Slight. Slight global slowness and poverty of spontaneous movements. Postural Tremor Hand Right 1-Slight. Tremor is present but less than 1cm in amplitude. Postural Tremor Hand Left 1-Slight. Tremor is present but less than 1cm in amplitude. Kinetic Tremor Right 1-Slight. Tremor is present but less than 1cm in amplitude. Kinetic Tremor Left 0-Normal. No tremor. Rest Tremor Amplitude Right Upper Extremity 1-Slight. < 1 cm in maximal amplitude. Rest Tremor Amplitude Left Upper Extremity 2-Mild. [...] period. MDS-UPDRS Motor subscale totals Left Total 12 Right Total 5 Midline Total 6 Tremor Total / 10 7 PIGD Total / 3 2 Overall Total 24 Change Better/Worse WORSE % Change Compared to Last Filed Total (!) 41.17 Assessment and Plan: Assessment Ms. Merchant is a right-handed 64 year old year old female with left > right resting tremor, rigidity and bradykinesia consistent with parkinsonism and involuntary tongue movement consistent with tardive dyskinesia. The parkinsonism may be drug-induced or unmasked Idiopathic Parkinson's disease. She does not have a family history of tremor or Parkinson's disease. She presents today for a sooner than scheduled follow up. She has had some difficulty tolerating Sinemet due to nausea and vomiting. Will slow down the titration and have her take extra Carbidopa with each dose of Sinemet as well as pre treat with Zofran. She had tried Zofran in the past but this was after she was already feeling sick. Could consider Sinemet CR or Neupro patch in the future if she continues to have nausea/vomiting with immediate release. Also of note, she has had several falls over the last 6 months. She has been following with primarycare. She also has a prescription for Florinef that lot porter gave her with parameters of when to use. I encouraged her to take her blood pressure and HR sitting and standing every day to get a record of blood pressures over time. The following are the current problems noted and addressed during this visit: Parkinsonism, unspecified parkinsonism type (hcc) (primary encounter diagnosis) Nausea Plan 09/22/2024 Visit: Parkinsonism - Start Sinemet titration as follows: Week 1 and 2: Take half a tablet at 8a, 1p, 6p Week 3 and 4: Take 1 tablet at 8a, half a tablet at 1p, 6p Week 5 and 6: Take 1 tablet at 8a and 1p, half a tablet at 6p Week 7 and beyond: Take 1 tablet at 8a, 1p, 6p -Take Carbidopa 25 mg with each dose of Sinemet. -Starting week 3, take Zofran in the morning and 8 hours later. -Take Sinemet with food. -Call with any questions or concerns or send a mychart Follow up as scheduled with Gemma November 16 Updated Movement Disorders Medication Schedule: Medications AM Lunch PM Sinemet 25/100 1 1 1 Carbidopa 25 mg 1 1 1 Zofran 4 mg 1 prn Level of service : 01740 (40-68 min). Time spent 51 min on the day of service, which included preparing to see the patient, [id number] patient care, completing clinical documentation, obtaining and/or reviewing separately obtained history, performing a medically appropriate examination, counseling and educating the patient/family/caregiver, and ordering medications, tests, or procedures. Thank you for allowing me to be part of the clinical care of this patient! I look forward to continued participation in the patient s care with you. Please do not hesitate to call with any questions. Sincerely, Rika Adam APRN.SAMIR documented in this encounterA[facility]05-[facility]25 Telephone encounter Note * Telephone Encounter - Joy Arvizu LPN - 09/21/2024 8:[address] [facility] 06/20/24 Patient phones requesting refills as follows: Requested Prescriptions Pending Prescriptions Disp Refills mycophenolate Mofetil (CELLCEPT) 500 mg tablet 60 tablet 5 Sig: Take 1 tablet by mouth two times a day. Please review and advise. Joy Arvizu LPN [facility]05-08-2025 Miscellaneous Notes* Telephone Encounter - Joy Arvizu LPN - 09/21/2024 8:[address] [facility] 06/20/24 Patient phones requesting refills as follows: Requested Prescriptions Pending Prescriptions Disp Refills mycophenolate Mofetil (CELLCEPT) 500 mg tablet 60 tablet 5 Sig: Take 1 tablet by mouth two times a day. Please review and advise. Joy Arvizu LPN documented in this encounterAdena [facility]04-28-2025 Telephone encounter Note * Telephone Encounter - Caitlyn Garcia LPN - 09/11/2024 3:30 PM EDT Patient updated and voiced understanding. Caitlyn Garcia LPN [facility]04-28-2025 Miscellaneous Notes* Telephone Encounter - Caitlyn Garcia LPN - 09/11/2024 3:30 PM EDT Patient updated and voiced understanding. Caitlyn Garcia LPN * Telephone Encounter - Caitlyn Garcia LPN - 09/11/2024 3:27 PM EDT ----- Message from Jasmyne Day MD sent at 09/11/2024 2:54 PM EDT ----- Xray of hip negative for fracture. documented in this encounterAdena [facility]04-28-2025 Telephone encounter Note * Telephone Encounter - Caitlyn Garcia LPN - 09/11/2024 3:27 PM EDT ----- Message from Jasmyne Day MD sent at 09/11/2024 2:54 PM EDT ----- Xray of hip negative for fracture. [facility]04-[facility] History of Present illness Narrative* Lauryn Gonzalez, RT(R) - 09/11/2024 12:40 PM EDT Radiology Service Progress Note PATIENT NAME: Eren Merchant DATE OF SERVICE: September 11, 2024 TIME: 1:02 PM PATIENT IDENTITY VERIFICATION COMPLETED USING TWO (2) IDENTIFIERS: Name and Date of confirmedby patient verbally. FALL SCREENING: Has the patient had 2 falls in the last year or 1 fall with injury or currently using an Ambulatory Assistive Device (Walker, Cane, Wheelchair, Crutches, etc.)? Yes, Patient High Riskfor Falls What interventions were put in place to prevent falls during this visit? Offered Assistance with Transfers/Clothing, Instructed Patient to Remain Seated (Not on Exam Table) Until Exam, and Increased Observations by Caregivers PATIENT GENDER DATA: Assigned female at . status: : No status:NO. PATIENT RELEVANT IMPLANT DATA REVIEWED: Yes PATIENT PRESENTS WITH AN IMPLANTABLE OR ATTACHED CAR SALES CONSULTANT: No RADIOLOGY DEPARTMENT: General X-ray: Exam(s) Completed: Spine X-Ray(s): Lumbar AP / LAT / L5-S1 Pelvis X-Ray: Pelvis with Hip Right Skull X-Ray facial bones PERIPHERAL IV DATA: Not applicable SIGNED BY: RT Eloy(R) September 11, 2024 1:02 PM documented in this encounterAdena [facility]04-28-20[facility] Instructions* Patient Instructions* Jasmyne Day MD - 09/11/2024 12:16 PM EDT You can take tylenol up to 1,000 mg 3 times per day for pain along with ice or heat 15-20 minutes as needed. Try the home exercises on a daily basis and use your walker when getting around. Please follow up with phyiscal therapy as ordered and with your neurologist. With your history of parkisons and unsteady gait I would not recommend driving. Please call our office with worsening symptoms or recurrent falls. Go to the ER with fall with headinjury or severe pain. documented in this encounterAdena [facility]04-28-2025 [facility] History of Present illness Narrative* Jasmyne Day MD - 09/11/2024 11:49 AM EDT 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 Patient presents with: Fall: 1 this week and 1 last week - reports unsure if the fall last week if she hit her head. Reports pain on left side of head. Back pain is from fall today. HPI Eren Merchant is a 64 year old female who presents here today for Above Complaints. Accompanied today by her SO-Michael. Has history of parkinson's disease. Evaluated on 08/31 by PCP for similar symptoms with recommendations to f/u with neurology. She states that she had a fall this morning onto the hard kitchen floor. States that her hands and legs started to shake and just fell to the floor without LOC. Landed on her back without head injuryor LOC. Complaining of pain over her right lower back since. Described as constant sharp, [id number]/10, without radiation. Exacerbated going from sitting to standing or vice versa, walking. Has not taken anything OTC for pain or tried ice/heat. Has walker at home, but has not needed it for ambulation. Also had a fall when coming down the stairs last week, but did not fall down the steps. Lost her balance hand hit the left side of her face on a door. Denies LOC, bruising or swelling. Admits to floaters as a vision change. Denies new loss of bowel/bladder control, saddle anesthesia,LE weakness, slurred speech, facial droop, loss of vision, numbness/tingling/weakness. Past medical history, appointments, medications, allergies reviewed. 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 Lemon PAST SURGICAL HISTORY OF 10/24/2009 Removed T9-L1, 2 rods and 8 screws, Dr Lemon PAST SURGICAL HISTORY OF 11/2018 Hysteroscopy with D&C and Polypectomy with Burroughs and NephCoverMe Truclear device PICC LINE INSERT/CONSULT 07/11/2018 THYMECTOMY [...] Family History Patient Allergies ALLERGIES Allergen Reactions Amantadine Contraindication-Medical Surgical Has renal failure, has not been on but would avoid due to metabolism. Erythromycin Diarrhea Hay Fever [Seasonal* Cough Zyrtec [Cetirizine * Itching Current Medications Current Outpatient Medications on File Prior to Visit Medication Sig amitriptyline (ELAVIL) 100 mg tablet Take 1 tablet by mouth daily at bedtime. mycophenolate Mofetil (CELLCEPT) 500 mg tablet Take 1 tablet by mouth two times a day. levothyroxine (SYNTHROID) 100 mcg tablet Take 1 tablet by mouth once daily. Take on empty stomach ondansetron (ZOFRAN) 4 mg tablet Take 1 tablet by mouth every 8 hours as needed for nausea/vomiting. estradiol (ESTRACE) 0.01 % (0.1 mg/gram) vaginal [...] Take 1 capsule by mouth once daily. Current Facility-Administered Medications on File Prior to Visit Medication cosyntropin 0.25 mg injection (CORTROSYN) Social History Social History Tobacco Use Smoking status: Never Passive exposure: Never Smokeless tobacco: Never Tobacco comments: No one in household smokes. Smoker in childhood home. Vaping Use Vaping status: Never Used Substance Use Topics Alcohol use: Yes Comment: Rarely Drug use: No \ Review of Symptoms REVIEW OF SYSTEMS See HPI EXAM: BP 104/64 Pulse 116 Resp 18 LMP 01/07/2011 SpO2 99% General Appearance: Well appearing, alert, in no acute distress, well-hydrated, well nourished.. Skin: Skin color, texture, turgor normal, no suspicious rashes or lesions. Head: Normocephalic, no masses, lesions. Positive for TTP over left lower orbit. Back:no pain to palpation of vertebrae, reflexes are 2+ and symmetric, motor and sensory appear to be normal, no evidence of scoliosis. Positive for TTP over right lumbar paraspinal muscles and rightposterior hip. Positive SLR. Limited ROM of DL spine due to pain. Lungs: Lungs clear to auscultation. No wheezing, rhonchi, rales.. Heart: RRR without murmur, gallop, or rubs. No ectopy. HIP: Location: Right Range of motion: Limited 2/2 pain Tenderness over trochanteric bursa: No Pain with movement: Yes. Neurologic: Negative findings: speech normal, mental status intact, cranial nerves 2-12 intact, muscle tone normal, muscle strength normal, sensation to light touch and pinprick normal, reflexes normal and symmetric, Positive findings: resting tremor and slowed gait consistent with parkinsons. Health Maintenance List RSV Vaccine(1 - Risk 60-74 years 1-dose series) Never done Cervical Cancer Screening due on 08/24/2019 Advance Directive Discussion due on 05/17/2024 Covid-19 Vaccine( season) due on 09/13/2024 Depression Screening due on 12/27/2024 Anxiety Screening due on 12/27/2024 Serum Creatinine due on 07/19/2025 Hemoglobin/Hematocrit due on 07/31/2025 Mammogram Screening due on 08/21/2025 Annual PCP Team Chronic Disease Visit due on 08/31/2025 Diabetes Screening due on 07/20/2027 Colorectal Cancer Screening due on 12/23/2027 Lipid Screening due on 01/30/2029 DTaP,Tdap,Td Vaccine(4 - Td or Tdap) due on 03/01/2033 Bone Density Screening Completed Influenza Vaccine Completed Hepatitis C Screening Completed Shingrix Vaccine Completed Pneumococcal Vaccine: 50+ Completed ASSESSMENT/PLAN: 1. Fall in home, initial encounter - ICD9: E888.9, E849.0, ICD10: W19.XXXA, Y92.009 (primary diagnosis) Patient with multiple falls likely 2/2 parkinsons. Will obtain xrays of her facial bones, lower back, and right hip to rule out fracture. Will treat with tylenol PRN for pain. Discussed muscle relaxers and narcotics would increase risk for falls. Can use rest, ice/heat, and OTC lidocaine patches PRN as well. Refer to PT for fall risk prevention and balance. Recommended use of walker with ambulation. Red flags for re-assessment reviewed with patient in detail. - XR HIP GENERAL 3V PELV/AP/LAT RIGHT - XR LUMBAR GENERAL 3V AP/LAT/L5-S1 - CONSULT TO PHYSICAL THERAPY 2. Acute right-sided low back pain without sciatica - ICD9: 724.2, ICD10: M54.50 See above - XR LUMBAR GENERAL 3V AP/LAT/L5-S1 3. Acute hip pain, right - ICD9: 719.45, ICD10: M25.551 See above - XR HIP GENERAL 3V PELV/AP/LAT RIGHT 4. Injury of head, initial encounter - ICD9: 959.01, ICD10: S09.90XA Neurologic exam unremarkable for signs of intracranial hemorrhage. Will obtain CT of the brain for further evaluation for recent fall with head injury. Red flags for re-assessment reviewed with patient in detail. - XR FACIAL BONES 3V AP/LAT/DE JESUS - CT BRAIN WO IVCON 5. Orbital pain, left - ICD9: 379.91, ICD10: H57.12 See above - XR FACIAL BONES 3V AP/LAT/DE JESUS 6. At high risk for falls - ICD9: V15.88, ICD10: Z91.81 See above - CONSULT TO PHYSICAL THERAPY Jasmyne Day MD documented in this encounterA[facility]04-18-2025 Telephone encounter Note * Telephone Encounter - Leyda Morfin LPN - 09/01/2024 10:07 AM EDT Left detailed message on identifiable voicemail. [facility]04-18-2025 Miscellaneous Notes* Telephone Encounter - Leyda Morfin LPN - 09/01/2024 10:07 AM EDT Left detailed message on identifiable voicemail. * Telephone Encounter - Juwan Land APRN.CNP - 09/01/2024 7:43 AM EDT Please let the patient know that her TSH was normal. Continue with current dose of levothyroxine. Juwan Land APRN.CNP documented in this encounterAdena [facility]04-18-2025 Telephone encounter Note * Telephone Encounter - Juwan Land APRN.CNP - 09/01/2024 7:43 AM EDT Please let the patient know that her TSH was normal. Continue with current dose of levothyroxine. Juwan Amadou, [employer]EMPLOYMENT SERVICES DIRECTOR [facility]04-17-2025 [facility]04-17-20[facility] History of Present illness Narrative* Priyanka Smith MD - 08/31/2024 10:25 AM EDT 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 Patient presents with: Fall HPI Eren Merchant is a 64 year old female who presents here today for a same day visit. Pt here today for a same day visit. Pt reports she fell in her kitchen yesterday morning at 12:30 am and now has a bruises on her left hip. Reports she spoke with a Nurse from her Insurance about herkidney issues. Pt notes she's been having lightheadedness sporadically. She tries to hurry and sit down to avoid falling. Denies having any lightheadedness when this episode occurred. States she was getting a drink of water and the next thing she knew she was down on the kitchen floor. Denies losing consciousness as she remembers hitting the floor and feeling it. Notes having issues with her earsand having balance issues. Follows with [facility], and they have not found anything to cause her hearing issues, ringing or plugged ear feeling she has. Pt notes that she was hospitalized for similar symptoms late last year and wants to get ahead of it, incase something is starting to occur again. No definite cause was found last year; she was placedon Florinef for a while, but this caused her to be dizzy so it was stopped. Past medical history, appointments, medications, allergies reviewed. 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 Erythromycin Diarrhea Hay Fever [Seasonal* Cough Zyrtec [Cetirizine * Itching Current Medications Current Outpatient Medications on File Prior to Visit Medication Sig carbidopa (LODOSYN) 25 mg tab Take 1 tablet by mouth three times a day. (Patient not taking: Reported on 08/31/2024) amitriptyline (ELAVIL) 100 mg tablet Take 1 tablet by mouth daily at bedtime. carbidopa-levodopa (SINEMET) 25-100 mg per tablet Take 0.5 tablets by mouth three times a day for 30 days, THEN 1 tablet three times a day. Then refill 1 tablet three times daily. (Patient not taking: Reported on 08/31/2024) mycophenolate Mofetil (CELLCEPT) 500 mg tablet Take 1 tablet by mouth two times a day. levothyroxine (SYNTHROID) 100 mcg tablet Take 1 tablet by mouth once daily. Take on empty stomach fludrocortisone (FLORINEF) 0.1 mg tablet Take 1 tablet by mouth every 12 hours. (Patient not taking: Reported on 06/26/2024) ondansetron (ZOFRAN) 4 mg tablet Take 1 tablet by mouth every 8 hours as needed for nausea/vomiting. estradiol (ESTRACE) 0.01 % (0.1 mg/gram) vaginal [...] Take 1 capsule by mouth once daily. Current Facility-Administered Medications on File Prior to Visit Medication cosyntropin 0.25 mg injection (CORTROSYN) Social History Social History Tobacco Use Smoking status: Never Passive exposure: Never Smokeless tobacco: Never Tobacco comments: No one in household smokes. Smoker in childhood home. Vaping Use Vaping status: Never Used Substance Use Topics Alcohol use: Yes Comment: Rarely Drug use: No EXAM: BP 112/82 (BP Site: Right Arm, BP Position: Sitting, BP Cuff Size: Regular Adult) Pulse 80 Resp16 Wt 77.6 kg (171 lb 1.2 oz) LMP 01/07/2011 BMI 28.47 kg/m General Appearance: Well appearing, alert, in no acute distress, well-hydrated, well nourished.. Lungs: Lungs clear to auscultation. No wheezing, rhonchi, rales.. Heart: RRR without murmur, gallop, or rubs. No ectopy. Health Maintenance List RSV Vaccine(1 - Risk 60-74 years 1-dose series) Never done Cervical Cancer Screening due on 08/24/2019 Advance Directive Discussion due on 05/17/2024 Covid-19 Vaccine( season) due on 09/13/2024 Depression Screening due on 12/27/2024 Anxiety Screening due on 12/27/2024 Serum Creatinine due on 07/19/2025 Annual PCP Team Chronic Disease Visit due on 07/31/2025 Hemoglobin/Hematocrit due on 07/31/2025 Mammogram Screening due on 08/21/2025 Diabetes Screening due on 07/20/2027 Colorectal Cancer Screening due on 12/23/2027 Lipid Screening due on 01/30/2029 DTaP,Tdap,Td Vaccine(4 - Td or Tdap) due on 03/01/2033 Bone Density Screening Completed Influenza Vaccine Completed Hepatitis C Screening Completed Shingrix Vaccine Completed Pneumococcal Vaccine: 50+ Completed Data reviewed None ASSESSMENT/PLAN: 1. Syncope, unspecified syncope type - ICD9: 780.2, ICD10: R55 (primary diagnosis) Unknown cause; continue to monitor; follow with Neuro 2. Hypothyroidism, unspecified type - ICD9: 244.9, ICD10: E03.9 Check TSH today - THYROID STIMULATING HORMONE Follow up prn Medical Decision Making: Problems: Moderate: 2+ stable chronic illnesses Data: Unique test(s) ordered: 1 Risk: Moderate: Drug management Medical Decision Making Level: 4 - Moderate Priyanka Smith MD documented in this encounterA[facility] History of Present illness Narrative* Latha Cuevas MD - 08/31/2024 9:53 AM EDT [facility] Follow up note Consulted by: Priyanka Smith MD 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: 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, alf use of systemic steroids HPI: This is a 64 year old female who presents with concerns of AI. Initial visit 05/05/24 In Feb 2024, she had 2 falls and lightheadedness, one at home and one at the doctor's office, she went to the ED, and her BP was found low, along with Stage 3 CKD She has a hx of Insterstitial lung disease, and was on prednisone for about 4 years, started at 10 mg, and was jamarcus to 5 mg which she was on over one year. 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 Lemon PAST SURGICAL HISTORY OF 10/24/2009 Removed T9-L1, 2 rods and 8 screws, Dr Lemon PAST SURGICAL HISTORY OF 11/2018 Hysteroscopy with D&C and Polypectomy with Burroughs and NephCoverMe Truclear device PICC LINE INSERT/CONSULT 07/11/2018 THYMECTOMY PRTL/TOT TRANSCERVICAL APPR SPX 07/14/2018 WEDGE RESECT LUNG Right 03/25/2020 Right VATS wedge resection of upper, middle and lower lung for pulmonary infiltrates FAMILY HISTORY: FAMILY HISTORY Problem Relation Age of Onset Hypertension Mother Thyroid Mother Heart Father Hypertension Father COPD Father Smoker. Heart Maternal Grandmother Stroke Maternal Grandmother Cancer Maternal Grandmother COLON Cancer Paternal Grandmother STOMACH Anesthesia Problems No Family History SOCIAL HISTORY: Social History Tobacco Use Smoking status: Never Passive exposure: Never Smokeless tobacco: Never Tobacco comments: No one in household smokes. Smoker in childhood home. Vaping Use Vaping status: Never Used Substance Use Topics Alcohol use: Yes Comment: Rarely Drug use: No MEDICATIONS: Current Outpatient Medications Medication Sig amitriptyline (ELAVIL) 100 mg tablet Take 1 tablet by mouth daily at bedtime. mycophenolate Mofetil (CELLCEPT) 500 mg tablet Take 1 tablet by mouth two times a day. levothyroxine (SYNTHROID) 100 mcg tablet Take 1 tablet by mouth once daily. Take on empty stomach ondansetron (ZOFRAN) 4 mg tablet Take 1 tablet by mouth every 8 hours as needed for nausea/vomiting. estradiol (ESTRACE) 0.01 % (0.1 mg/gram) vaginal [...] Take 1 capsule by mouth once daily. carbidopa (LODOSYN) 25 mg tab Take 1 tablet by mouth three times a day. (Patient not taking: Reported on 08/31/2024) carbidopa-levodopa (SINEMET) 25-100 mg per tablet Take 0.5 tablets by mouth three times a day for 30 days, THEN 1 tablet three times a day. Then refill 1 tablet three times daily. (Patient not taking: Reported on 08/31/2024) fludrocortisone (FLORINEF) 0.1 mg tablet Take 1 tablet by mouth every 12 hours. (Patient not taking: Reported on 06/26/2024) Current Facility-Administered Medications Medication Dose Route Frequency cosyntropin 0.25 mg injection (CORTROSYN) 0.25 mg INTRAMUSCULAR PRN ALLERGIES: ALLERGIES Allergen Reactions Amantadine Contraindication-Medical Surgical Has renal failure, has not been on but would avoid due to metabolism. Erythromycin Diarrhea Hay Fever [Seasonal* Cough Zyrtec [Cetirizine * Itching REVIEW OF SYSTEMS: GENERAL: No weight loss, malaise or fevers HEENT: Negative for frequent or significant headaches, No changes in hearing or vision, no nose bleeds or other nasal problems NECK: Negative for lumps, goiter, pain and significant neck swelling RESPIRATORY: Negative for cough, hemoptysis, wheezing, COPD, dyspnea or shortness of breath CARDIOVASCULAR: Negative for chest pain, leg swelling, hypertension, CHF or palpitations GI: No nausea, vomiting, or diarrhea MUSCULOSKELETAL: Negative for joint pain or swelling, back pain or muscle pain SKIN: Negative for lesions, rash, and itching ENDOCRINE: Negative for cold or heat intolerance, polyuria, polydipsia and goiter NEURO: No history of headaches, syncope, paralysis, seizures or tremors All other reviewed and negative other than HPI. PHYSICAL EXAM: BP 118/66 (BP Site: Right Arm, BP Position: Sitting, BP Cuff Size: Regular Adult) Temp 37.1 C (98.7 F) (Temporal Artery) Resp 14 Wt 77.4 kg (170 lb 9.6 oz) LMP 01/07/2011 BMI 28.39 kg/m Body mass index is 28.39 kg/m . Examination deferred LABS: Latest Ref Rng 04/05/2024 04/17/2024 Albumin 3.9 - 4.9 g/dL 3.9 Calcium 8.5 - 10.2 mg/dL 9.6 10.3 (H) Phosphorus 2.7 - 4.8 mg/dL 3.2 Glucose 74 - 99 mg/dL 109 (H) 106 (H) BUN 7 - 21 mg/dL 21 28 (H) Creatinine 0.58 - 0.96 mg/dL 2.05 (H) 1.68 (H) Sodium 136 - 144 mmol/L 137 140 Potassium 3.7 - 5.1 mmol/L 4.0 3.1 (L) Chloride 98 - 107 mmol/L 102 106 CO2 22 - 30 mmol/L 22 21 (L) Anion Gap 8 - 15 mmol/L 13 13 eGFR >=60 mL/min/1.73m 26 (L) 33 (L) PTH, Intact 15 - 65 pg/mL 47 Vitamin D 25 Hydroxy 31.0 - 80.0 ng/mL 49.0 Latest Ref Rng 05/11/2024 7:07 AM Protein, Total 6.3 - 8.0 g/dL 6.9 Albumin 3.9 - 4.9 g/dL 3.9 Calcium 8.5 - 10.2 mg/dL 9.8 Bilirubin, Total 0.2 - 1.3 mg/dL 0.4 Alkaline Phosphatase 34 - 123 U/L 98 AST 13 - 35 U/L 20 ALT 7 - 38 U/L 17 Glucose 74 - 99 mg/dL 96 BUN 7 - 21 mg/dL 25 (H) Creatinine 0.58 - 0.96 mg/dL 1.73 (H) Sodium 136 - 144 mmol/L 142 Potassium 3.7 - 5.1 mmol/L 3.9 Chloride 98 - 107 mmol/L 108 (H) CO2 22 - 30 mmol/L 22 Anion Gap 8 - 15 mmol/L 12 eGFR >=60 mL/min/1.73m 32 (L) Cortisol 60 min ug/dL Interpretation (ACTHST) Cortisol 4.8 - 19.5 ug/dL 10.2 ACTH 7.2 - 63.3 pg/mL 64.8 (H) Cortisol Basal 4.8 - 19.5 ug/dL Cortisol 30 min ug/dL Latest Ref Rng 05/23/2024 8:30 AM Cortisol 60 min ug/dL 22.1 Interpretation (ACTHST) -- Cortisol Basal 4.8 - 19.5 ug/dL 8.7 Cortisol 30 min ug/dL 17.9 Legend: (H) High (L) Low Legend: (H) High (L) Low ASSESSMENT : 64 year old female presenting with concerns for possible AI due to alf steroid therapy PLAN: 1. 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 (HCC) (E27.40) 2. assisted systemic 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 (Z79.52) Due to hx of systemic steroid use for about 4 years she is at risk of secondary AI. She was on a physiological dose, and tapering would be a better option due to prolonged use and the fact that she was having symptoms of lightheadedness prior to discontinuation She was only on florinef when last seen but this was discontinued. Based on tests reviewed, I advised her to do ACTH stimulation test, which is normal FOLLOW UP: not indicated Medical Decision Making: Problems: Low: 2+ self-limited or minor problems Data: Unique test result(s) reviewed: 3+ Medical Decision Making Level: 3 - Low Latha Cuevas MD Endocrinology Associate Staff [facility] Endocrinology and Metabolism [place] [phone] documented in this encounterAdena [facility] Center04-07-2025 History of Present illness Narrative* Tracey Fernando Mammo Tech - 08/21/2024 9:10 AM EDT Radiology Service Progress Note PATIENT NAME: Eren Merchant DATE OF SERVICE: August 21, 2024 TIME: 9:35 AM PATIENT IDENTITY VERIFICATION COMPLETED USING TWO (2) IDENTIFIERS: Name and Date of confirmedby patient verbally. FALL SCREENING: Has the patient had 2 falls in the last year or 1 fall with injury or currently using an Ambulatory Assistive Device (Walker, Cane, Wheelchair, Crutches, etc.)? No PATIENT GENDER DATA: Assigned female at . status: : No status:NO. PATIENT RELEVANT IMPLANT DATA REVIEWED: Not Applicable PATIENT PRESENTS WITH AN IMPLANTABLE OR ATTACHED CAR SALES CONSULTANT: No RADIOLOGY DEPARTMENT: Mammography PERIPHERAL IV DATA: Not applicable SIGNED BY: Marissa Levin August 21, 2024 9:35 AM documented in this encounterAdena [facility]04-07-2025 [facility]04-04-2025 Telephone encounter Note* Telephone Encounter - Maira Chen APRN.CNP - 08/18/2024 12:16 PM EDT Patient was contacted. No uti symptoms today Urine culture in process I will send the results to her when final Report to the ER with fever, chills, back pain Patient verbalized understanding [facility]04-04-2025 Miscellaneous Notes* Telephone Encounter - Maira Chen APRN.CNP - 08/18/2024 12:16 PM EDT Patient was contacted. No uti symptoms today Urine culture in process I will send the results to her when final Report to the ER with fever, chills, back pain Patient verbalized understanding documented in this encounterAdena [facility] Center03-31-2025 History of Present illness Narrative* Sarah Berg RDMS - 08/14/2024 1:45 PM EDT Radiology Service Progress Note PATIENT NAME: Eren Merchant DATE OF SERVICE: August 14, 2024 TIME: 2:19 PM PATIENT IDENTITY VERIFICATION COMPLETED USING TWO (2) IDENTIFIERS: Name and Date of confirmedby patient verbally. FALL SCREENING: Has the patient had 2 falls in the last year or 1 fall with injury or currently using an Ambulatory Assistive Device (Walker, Cane, Wheelchair, Crutches, etc.)? No PATIENT GENDER DATA: Assigned female at . status: : No status:NO. PATIENT RELEVANT IMPLANT DATA REVIEWED: Not Applicable PATIENT PRESENTS WITH AN IMPLANTABLE OR ATTACHED CAR SALES CONSULTANT: No RADIOLOGY DEPARTMENT: Ultrasound PERIPHERAL IV DATA: Not applicable SIGNED BY: Sarah Berg RDMS August 14, 2024 2:19 PM documented in this encounterAdena [facility] Center03-31-2025 [facility]03-[facility]03-26-[facility] History of Present illness Narrative* Maira Chen, [employer].EMPLOYMENT SERVICES DIRECTOR - 08/09/2024 2:17 PM EDT Eren Merchant is a 64 year old female who presents today for a follow up for Patient presents with: Follow Up: Hematuria CHIEF COMPLAINT & HISTORY OF PRESENT ILLNESS CC: gross hematuria 64 year old female with a history of nephrolithiasis, CKD, GERD, OAB presents for reports of gross hematuria last month, clots presents, occurred again last week, she experienced a large amount of bleeding with clots. Denies fever, chills dysuria Chronic microscopic hematuria She does endorse mid spinal back pain for the past 2 days. creatinine 1.56 Followed by nephrology Denies family history of urological cancer Non smoker 02/2024-TAIWOA s/p cystoscopy, ureteroscopy, bilateral laser lithotripsy with bilateral stent placement and removal 11/22/2023 right ESWL 01/[address] Mg VITALS: Height 165.1 cm (5' 5), weight 77.1 kg (170 lb), last menstrual period 01/07/2011. ALLERGIES: Amantadine, Erythromycin, Hay Fever [Seasonal Allergies], and Zyrtec [Cetirizine Hcl] MEDICATIONS: Current Outpatient Medications Medication Sig Dispense Refill amitriptyline (ELAVIL) 100 mg tablet Take 1 tablet by mouth daily at bedtime. 30 tablet 5 carbidopa-levodopa (SINEMET) 25-100 mg per tablet Take 0.5 tablets by mouth three times a day for 30 days, THEN 1 tablet three times a day. Then refill 1 tablet three times daily. 90 tablet 11 mycophenolate Mofetil (CELLCEPT) 500 mg tablet Take 1 tablet by mouth two times a day. 270 tablet 3 levothyroxine (SYNTHROID) 100 mcg tablet Take 1 tablet by mouth once daily. Take on empty stomach 90 tablet 3 ondansetron (ZOFRAN) 4 mg tablet Take 1 tablet by mouth every 8 hours as needed for nausea/vomiting. 90 tablet 11 estradiol (ESTRACE) 0.01 % (0.1 mg/gram) vaginal cream Use 1 g vaginally two times a week. 42.5 g 4 calcium carbonate 600 mg-cholecalciferol 400 units 600 mg-10 mcg (400 unit) tab Take 1 tablet by mouth two times a day. 180 tablet 1 aspirin, enteric coated (ASPIRIN, ENTERIC COATED) 81 mg EC tablet Take 81 mg by mouth once daily. multivit-min/iron/folic acid/K (MULTI-DAY PLUS MINERALS ORAL) Take 1 capsule by mouth once daily. L.acidophilus-L.rhamnosus (PROBIOTIC) 15 billion cell capsule Take 1 capsule by mouth once daily. fludrocortisone (FLORINEF) 0.1 mg tablet Take 1 tablet by mouth every 12 hours. (Patient not taking: Reported on 06/26/2024) Current Facility-Administered Medications Medication Dose Route Frequency Provider Last Rate Last Admin cosyntropin 0.25 mg injection (CORTROSYN) 0.25 mg INTRAMUSCULAR PRN Latha Cuevas MD 0.25 mg at 05/23/24 0940 SOCIAL HISTORY: Social History Tobacco Use Smoking status: Never Passive exposure: Never Smokeless tobacco: Never Tobacco comments: No one in household smokes. Smoker in childhood home. 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 Heart Maternal Grandmother Stroke Maternal Grandmother Cancer Maternal Grandmother COLON Cancer Paternal Grandmother STOMACH Anesthesia Problems No Family History All histories reviewed on this date 08/09/2024: Yes REVIEW OF SYSTEMS: CONSTITUTIONAL: Patient reports no recent fever or weight loss CARDIOVASCULAR: Negative for chest pain. RESPIRATORY: Negative for cough, hemoptysis, wheezing, COPD, dyspnea or shortness of breath All other systems reviewed and are negative other than HPI. PHYSICAL EXAM: constitutional: appears healthy in no acute distress respiratory: normal respiratory motion gi: abdomen soft, non-tender without masses, hernia or organomegaly gu: bladder: not palpable, no tenderness. no cvat RADIOLOGY REPORTS REVIEWED: Yes LAB RESULTS REVIEWED: Yes Latest Ref Rng 08/09/2024 GLUCOSE UA (POCT) Negative mg/dL Negative BILIRUBIN UA (POCT) Negative Negative KETONE UA (POCT) Negative mg/dL Negative SPECIFIC GRAVITY UA (POCT) 1.005 - 1.030 1.025 HEMOGLOBIN/BLOOD UA (POCT) Negative Large ! PH UA (POCT) 4.5 - 8.0 6.0 PROTEIN UA (POCT) Negative mg/dL 100 ! UROBILINOGEN UA (POCT) Normal E.U./dL 0.2 NITRITE UA (POCT) Negative Positive ! LEUKOCYTES UA (POCT) Negative Large ! COLOR UA (POCT) Yellow CLARITY UA (POCT) Clear IMAGING STUDIES INDEPENDENTLY REVIEWED: Yes OLD RECORDS REVIEWED: Yes: Extensive: Yes ASSESSMENT/PLAN: 1. Gross hematuria - ICD9: 599.71, ICD10: R31.0 (primary diagnosis) -intermittent -ua positive -urine culture sent -s/p ureteroscopy with bilateral stent placement and removal 02/2024 at [facility] -ct reviewed from 03/09 - US KIDNEY/BLADDER - UA DIP, URINE (POC) - BACTERIAL CULTURE, URINE 2. Nephrolithiasis - ICD9: 592.0, ICD10: N20.0 - US KIDNEY/BLADDER Patient is instructed to schedule a follow up as scheduled with Dr. Yang . Maira Chen APRN.SAMIR documented in this encounterAdena Regional Medical Center03-25-2025 Telephone encounter Note * Telephone Encounter - Tess Persaud MA - 08/08/2024 12:02 PM EDT See pt message with an update. Tess Persaud MA [facility]03-25-2025 Miscellaneous Notes* Telephone Encounter - Tess Persaud MA - 08/08/2024 12:02 PM EDT See pt message with an update. Tess Persuad MA documented in this encounterAdena Regional Medical Center03-25-2025 Miscellaneous Notes* Telephone Encounter - Abdulkadir Villalobos RN - 08/08/2024 11:51 AM EDT Kirsten Pts nurse EMY called in and was asking if provider had ordered a bedside commode for the Pt. Itold I couldn't see where it was ordered. She states their THERMOSTATIC CONTROLS SUPERVISOR will order it, but she didn't want maria antonia putting in a duplicate order. documented in this encounterAdena Regional Medical Center03-25-2025 Telephone encounter Note * Telephone Encounter - Abdulkadir Villalobos RN - 08/08/2024 11:51 AM EDT Kirsten Pts nurse QUEVEDO called in and was asking if provider had ordered a bedside commode for the Pt. Itold I couldn't see where it was ordered. She states their THERMOSTATIC CONTROLS SUPERVISOR will order it, but she didn't want maria antonia putting in a duplicate order. [facility]03-24-2025 Telephone encounter Note* Telephone Encounter - Amber Santiagocy - 08/07/2024 8:45 AM EDT 08/07/24 Patient has been scheduled w/ for 02/08/25. Kirk Santiago [facility]03-24-2025 Miscellaneous Notes* Telephone Encounter - Kirk Santiago - 08/07/2024 8:45 AM EDT 08/07/24 Patient has been scheduled w/ for 02/08/25. Kirk Santiago documented in this encounterAdena Regional Medical Center03-21-2025 History of Present illness Narrative* German Grubbs, HAILE.EMPLOYMENT SERVICES DIRECTOR - 08/04/2024 2:30 PM EDT Images from the original note were not included. AMBULATORY TELEPHONE VISIT Last visit 06/09/[address] Benitez: Assessment & Plan Chronic interstitial cystitis - Pt is s/p mirabegron, oxybutynin, interstim, botox 100 units, now botox 200 units with no improvement in OAB symptoms (had some improvement w/ interstim but didn't last long) - Voids q20 minutes, waking q1h at night; feels if she doesn't empty her bladder she is in severe discomfort - Last cystoscopy revealed Bladder mucosa was erythematous with petechiae and glomerulations at thebladder base and trigone upon entry of the cystoscope. - concerning for IC - Possible that she has been treated for OAB while she actually has picture more c/w IC - Recommend IC pathway- recommend elavil 10mg and uptitrating to 50-75mg on 01/10; had to stop 03/03given hydro, stones, falls etc; restarted 04/17/24 (after discussing w/ other providers) - Also discussed other oral medications, PFPT, cystoscopy with fulguration v steroids, bladder installations as treatment options - Recommend pyridium PRN for 2-3 days when in flare - Today: increased to elavil 100mg; ordered 25mg tablets as she just picked up 90d supply of 75mg tablets - f/u 6 weeks Eren Merchant has consented to this telephone encounter. Persons Present: patient 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/Reason: chronic IC HPI: States things are going ok. States yesterday, when she went to in the AM, she was urinatingblood the rest of the day. States she had no pain. States she had blood clots. States she has had blood in the past with urination. History of kidney stones. Currently taking Amitriptyline 100 mg at hs which has helped a lot with urinary frequency. Still voiding frequently but she has to drink a lot of water because of her kidneys. She was voiding every 20 minutes but now going every 1-1.5 hours. Sees Urology and Nephrology. GFR 37. Data Reviewed: Most recent labs Assessment: (N30.10) Chronic interstitial cystitis (primary encounter diagnosis) (R31.0) Gross hematuria Plan: - Plan to continue Amitriptyline 100 mg at hs. - Recommend she notify urology regarding hematuria. She agrees. Total Time Spent: 15 minutes German Grubbs APRN.EMPLOYMENT SERVICES DIRECTOR documented in this encounterAdena Regional Medical Center03-21-2025 NoteHNO ID: [id number] Author: GERMAN GRUBBS APRN.EMPLOYMENT SERVICES DIRECTOR Service: ? Author Type: Nurse Practitioner Type: Progress Notes Filed: 08/04/2024 14:42 Note Text: AMBULATORY TELEPHONE VISIT Last visit 06/09/[address] Benitez: Assessment AND Plan Chronic interstitial cystitis - Pt is s/p mirabegron, oxybutynin, interstim, botox 100 units, now botox 200 units with no improvement in OAB symptoms (had some improvement w/ interstim but didn't last long) - Voids q20 minutes, waking q1h at night; feels if she doesn't empty her bladder she is in severe discomfort - Last cystoscopy revealed Bladder mucosa was erythematous with petechiae and glomerulations at the bladder base and trigone upon entry of the cystoscope. - concerning for IC - Possible that she has been treated for OAB while she actually has picture more c/w IC - Recommend IC pathway- recommend elavil 10mg and uptitrating to 50-75mg on 01/10; had to stop 03/03 given hydro, stones, falls etc; restarted 04/17/24 (after discussing w/ other providers) - Also discussed other oral medications, PFPT, cystoscopy with fulguration v steroids, bladder installations as treatment options - Recommend pyridium PRN for 2-3 days when in flare - Today: increased to elavil 100mg; ordered 25mg tablets as she just picked up 90d supply of 75mg tablets - f/u 6 weeks Eren Merchant has consented to this telephone encounter. Persons Present: patient 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/Reason: chronic IC HPI: States things are going ok. States yesterday, when she went to in the AM, she was urinating blood the rest of the day. States she had no pain. States she had blood clots. States she has had blood in the past with urination. History of kidney stones. Currently taking Amitriptyline 100 mg at hs which has helped a lot with urinary frequency. Still voiding frequently but she has to drink a lot of water because of her kidneys. She was voiding every 20 minutes but now going every 1-1.5 hours. Sees Urology and Nephrology. GFR 37. Data Reviewed: Most recent labs Assessment: (N30.10) Chronic interstitial cystitis (primary encounter diagnosis) (R31.0) Gross hematuria Plan: - Plan to continue Amitriptyline 100 mg at hs. - Recommend she notify urology regarding hematuria. She agrees. Total Time Spent: 15 minutes German Grubbs APRN.[facility]03-20-2025 Instructions* Patient Instructions* Bogdan Roberts MD - 08/03/2024 11:12 AM EDT It was a pleasure to see you today. We addressed the following diagnoses: Parkinsonism, unspecified parkinsonism type (hcc) (primary encounter diagnosis) Neuroleptic-induced tardive dyskinesia Stage 3b chronic kidney disease (hcc) My recommendations are as follows: - Start taking Sinemet (Carbidopa-Levodopa) as prescribed: - Take half a tablet three times a day with meals. - After one month, you may increase to a full tablet three times a day if needed. - If you feel well on the half tablet, you do not need to increase the dose. - Monitor for any increased mouth movements or other side effects. - Follow up appointment scheduled for November 16 at 8:00 am. Movement Disorders Medication Schedule: Medications AM Lunch PM Sinemet / 1 1 1 Return at or around: 11/03/24 If there are any concerns before your next visit, please call or you can send a message through [employer]. You can also now schedule and select appointments through [employer]. Bogdan Roberts MD documented [facility] History of Present illness Narrative* Bogdan Roberts MD - 08/03/2024 10:38 AM EDT [facility] - FOLLOW UP EVALUATION The patient consented to the use of ambient [employer] software for draft documentation of the visit consistent with [facility] s Notice of Privacy Practices. Priyanka Smith MD [id number] [facility] [id number] Dear Priyanka Smith MD: I had the pleasure of seeing Ms. Merchant for follow-up today. As you know she is a 64 year old right-handed female with a history of tremor since 2021. Subjective Previous Plan- 05/30/2024 Visit: Parkinsonism/Tremor: Continue monitoring Please let me know if you decide you would like to try Sinemet Exercise as able Tardive dyskinesia: Continue to monitor Interval History: Eren is a 64-year-old female with a history of interstitial lung disease, esophageal candidiasis, and kidney failure, presenting for follow-up on tremors and dyskinesia. Eren reports improvement intremors and dyskinesia since discontinuing prednisone, propranolol, and metoclopramide (Reglan). She was initially seen in December, with subsequent evaluations in February and May, noting left greater than right resting tremor, rigidity, and dyskinesia, including involuntary tongue movements. Mains not currently notice these movements, though her son previously observed them. Metoclopramide was discontinued in December due to concerns about tardive dyskinesia. Eren was taking it for recurrent esophageal candidiasis, which was attributed to long-term prednisone use for interstitial lung disease. She underwent two endoscopies, with the most recent in May showing no infection. Propranolol was discontinued in February during a hospitalization for kidney failure, which was discovered after presenting with falls, syncope, and lightheadedness. At that time, her eGFR was 19%; ithas since improved to 31%. She continues regular follow-ups with her lot porter and frequent blood work. She reports stiffness and slowness, particularly on the left side, but these symptoms do not significantly impact her daily activities. She remains active, using an elliptical machine regularly. She also experiences bilateral shoulder pain radiating to her back, which has improved with a recent course of steroids. Eren mentions a denial letter from her insurance company regarding a SYN-1 test, citing a lack of documentation on how the test would impact the management of her tremors. Movement Disorders Medications Schedule - as of the start of the visit: Medications None Other Movement Disorder Prior Therapies Propranolol Cannot take Topamax and Zonisamide due to kidney stones Questionnaires: In addition, the following areas that may be affected by abnormal involuntary movements were evaluated: Daily activities Difficulties with eatin (none) Difficulties in dressin (none) Difficulties with hygiene activities: 0 (none) Difficulties with handwriting: Yes (slight) Difficulties with doing hobbies and other activities: Yes (slight) Difficulties turning in bed: Yes (slight) Difficulties getting out of bed, car or chair: Yes (slight) Tremors/Gait/Balance Shaking or tremors: Yes (slight) Walking and balance problems: Yes (slight) Number of falls in the Last Month: 0 Gait freezin (none) Autonomic/Pain Lightheadeness on standing: Yes (moderate) Urinary problems: Yes (moderate) Constipation problems: 0 (none) Pain and other sensations: Yes (slight) Speech/Swallowing Speech problems: 0 (none) Droolin (none) Chewing and swallowing problems: 0 (none) Sleep/Fatigue Sleep problems: Yes (mild) Daytime sleepiness: Yes (slight) Fatigue: 0 (none) Mood/Behavior Depression: PHQ-9 Score: 3 usually representing no significant (0-4) depression. Anxiety: YOVANY-7 Total Score: 0 usually representing no significant (0-4) anxiety. Finally, the following table shows the patient's overall global physical and mental health using the PROMIS scale: PROMIS-10 Flowsheet Row Office Visit from 05/30/2024 in Neurology Office Visit from 01/13/2024 in Neurology Global Physical Health T Score 50.8 -- Global Mental Health T Score 67.6 56 0-10 Standard Pain Scale 4 -- *PROMIS-10 scoring scale: mean = 50, over 50 is above average, under 50 is below average ALLERGIES Allergen Reactions Amantadine Contraindication-Medical Surgical Has renal failure, has not been on but would avoid due to metabolism. Erythromycin Diarrhea Hay Fever [Seasonal* Cough Zyrtec [Cetirizine * Itching Current Outpatient Medications Medication Sig mycophenolate Mofetil (CELLCEPT) 500 mg tablet Take 1 tablet by mouth two times a day. levothyroxine (SYNTHROID) 100 mcg tablet Take 1 tablet by mouth once daily. Take on empty stomach ondansetron (ZOFRAN) 4 mg tablet Take 1 tablet by mouth every 8 hours as needed for nausea/vomiting. estradiol (ESTRACE) 0.01 % (0.1 mg/gram) vaginal [...] Take 1 capsule by mouth once daily. nitrofurantoin monohydrate and macrocrystal (MACROBID) 100 mg capsule Take 1 capsule by mouth two times a day for 7 days. amitriptyline (ELAVIL) 100 mg tablet Take 1 tablet by mouth daily at bedtime. carbidopa-levodopa (SINEMET) 25-100 mg per tablet Take 0.5 tablets by mouth three times a day for 30 days, THEN 1 tablet three times a day. Then refill 1 tablet three times daily. fludrocortisone (FLORINEF) 0.1 mg tablet Take 1 tablet by mouth every 12 hours. (Patient not taking: Reported on 06/26/2024) Current Facility-Administered Medications Medication Dose Route Frequency cosyntropin 0.25 mg injection (CORTROSYN) 0.25 mg INTRAMUSCULAR PRN Objective Vital Signs: BP 114/76 (BP Site: Left Arm, BP Position: Sitting, BP Cuff Size: Regular Adult) Pulse 88 Ht 165.1 cm (5' 5) Wt 78.6 kg (173 lb 4.5 oz) LMP 01/07/2011 SpO2 99% BMI 28.84 kg/m Orthostatic Vitals: Standing: BP 113/80 Pulse 86 Weight: 78.6 kg (173 lb 4.5 oz) Height: 165.1 cm (5' 5) Patient's last menstrual period was 01/07/2011. Body mass index is 28.84 kg/m . Movement Disorders Scales Performed: MDS-UPDRS Motor subscale condition of exam Medication Off/On/Naiive Drug Naiive Time of UPDRS Time of Last Medication Last Medication Taken DBS Right OFF DBS Left OFF MDS-UPDRS Motor subscale scores Speech 0-Normal. No speech problems. Facial Expression 0-Normal. Normal facial expression. Rigidity Neck 0-Normal. No rigidity. Rigidity Right Upper Extremity 0-Normal. No rigidity. Rigidity Left Upper Extremity 1-Slight. Rigidity only detected with activation maneuver. Rigidity Right Lower Extremity 1-Slight. Rigidity only detected with activation maneuver. Rigidity Left Lower Extremity 1-Slight. Rigidity only detected with activation maneuver. Finger Taps Right 1-Slight. a) the regular rhythm is broken with one or two interruptions or hesitations of the tapping movement, b) slight slowing, c) the amplitude decrements near the end of the 10taps. Finger Taps Left 1-Slight. a) the regular rhythm is broken with one or two interruptions or hesitations of the tapping movement, b) slight slowing, c) the amplitude decrements near the end of the 10 taps. Hand Movements Right 0-Normal. No problem. Hand Movements Left 0-Normal. No problem. Arm Movements Right 0-Normal. No problems. Arm Movements Left 1-Slight. a) the regular rhythm is broken with one or two interruptions or hesitations of the movement, b) slight slowing, c) the amplitude decrements near the end of the sequence. Toe Taps Right 0-Normal. No problem. Toe Taps Left 0-Normal. No problem. Leg Agility Right 0-Normal. No problems. Leg Agility Left 0-Normal. No problems. Arise From Chair 1-Slight. Arising is slower than normal, or may need more than one attempt, or mayneed to move forward in the chair to arise. No need to use the arms of the chair. Gait 1-Slight. Independent walking with minor gait impairment. (She has bilateral absent arm swing) Gait Freezing 0-Normal. No freezing. Posture Stability 0-Normal. No problems: recovers with one or two steps. (deferred) Posture 2-Mild. Definite flexion, scoliosis or leaning to one side, but patient can correct postureto normal posture when asked to do so. Body Bradykinesia 1-Slight. Slight global slowness and poverty of spontaneous movements. Postural Tremor Hand Right 1-Slight. Tremor is present but less than 1cm in amplitude. Postural Tremor Hand Left 0-Normal. No tremor. Kinetic Tremor Right 1-Slight. Tremor is present but less than 1cm in amplitude. Kinetic Tremor Left 0-Normal. No tremor. Rest Tremor Amplitude Right Upper Extremity 1-Slight. < 1 cm in maximal amplitude. Rest Tremor Amplitude Left Upper Extremity 2-Mild. [...] period. MDS-UPDRS Motor subscale totals Left Total 6 Right Total 5 Midline Total 5 Tremor Total / 10 6 PIGD Total / 3 1 Overall Total 17 Change Better/Worse Better % Change Compared to Last Filed Total -34.61 Assessment and Plan: Assessment Ms. Merchant is a right-handed 64 year old year old female with left > right resting tremor, rigidity and bradykinesia consistent with parkinsonism and involuntary tongue movement consistent with tardive dyskinesia. The parkinsonism may be drug-induced or unmasked Idiopathic Parkinson's disease. She does not have a family history of tremor or Parkinson's disease. The following are the current problems noted and addressed during this visit: Parkinsonism, unspecified parkinsonism type (hcc) (primary encounter diagnosis) Neuroleptic-induced tardive dyskinesia Stage 3b chronic kidney disease (hcc) Plan 08/03/2024 Visit: # Parkinsonism, unspecified Parkinsonism type (HCC) (G20.C) Resting tremor, rigidity, and bradykinesia observed. Symptoms have improved since discontinuation of metoclopramide and propranolol. Mild kinetic intention tremor noted on examination. Suspected mildParkinson's disease. - Initiate Sinemet at half tablet TID with meals; increase to full tablet after one month if tolerated. - Educated patient on potential side effects, including levodopa-induced dyskinesia. - Scheduled follow-up in two months on November 16. # Neuroleptic-induced tardive dyskinesia (G24.01) Involuntary tongue movements have significantly decreased since discontinuation of metoclopramide in December. - Monitor for any recurrence of dyskinesia with initiation of Sinemet. - Added amantadine to adverse drug list due to potential renal complications. # Stage 3b chronic kidney disease (HCC) (N18.32) Renal function has improved from 19% to 31% GFR. Patient is under regular nephrology care with frequent blood work monitoring. - Continue current nephrology management. - Avoid amantadine due to renal metabolism. # Pain of right shoulder region (M25.511) Shoulder pain with radiation to the back and shoulder blades. Currently on a short course of steroids with some improvement. Suspected musculoskeletal tightness possibly related to Parkinsonism. - Continue current steroid regimen. - Advised on the potential benefits of Sinemet in reducing stiffness and improving range of motion. Interested in clinical research? Not discussed Updated Movement Disorders Medication Schedule: Medications AM Lunch PM Sinemet 1 1 1 Return at or around: 11/03/24 Thank you for allowing me to be part of the clinical care of this patient! I look forward to continued participation in the patient s care with you. Please do not hesitate to call with any questions. Sincerely, Bogdan Roberts MD documented in this encounterAden[facility]03-17-2025 Instructions* Patient Instructions* Juwan Land APRN.EMPLOYMENT SERVICES DIRECTOR - 07/31/2024 11:19 AM EDT We discussed your generalized muscle pain (myalgia) and discomfort in your arms, shoulders, back, and ribs: - I have prescribed a 6-day course of steroids to help reduce inflammation and alleviate your symptoms. Please take this medication with food and in the morning to avoid jitteriness or difficulty sleeping. This prescription has been sent to your preferred pharmacy, [facility]. - You may continue taking Tylenol as needed for pain relief. Be sure to follow the dosing instructions on the label. - Consider trying gentle massage therapy, particularly in the trapezius area, to help relieve tension and discomfort. We discussed your history of low blood pressure and kidney disease: - Your blood pressure today was 89/61, which is on the lower side. Please continue monitoring your blood pressure at home. If your systolic blood pressure (top number) stays below 100, take Florinef as directed. - You are currently under the care of Dr. Steve for your kidney disease. Please continue followingup with him as scheduled. We discussed additional testing: - I have ordered blood work to check for inflammatory markers (ESR and CRP) to rule out conditions such as polymyalgia rheumatica (PMR). You do not need to fast for these labs. Please complete the blood work at your earliest convenience. We discussed your history of Parkinsonism symptoms: - You are currently being evaluated by neurology to determine whether your symptoms are related to Parkinson s disease or drug-induced Parkinsonism. Please continue following up with your neurologistas planned. If your symptoms worsen or do not improve after completing the steroid course, please contact our office for further evaluation. documented in this encounterAdena [facility]03-17-2025 History of Present illness Narrative* Juwan Land APRN.CNP - 07/31/2024 11:00 AM EDT 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 Patient presents with: Arm Pain: Bilateral since 07/11 pain wraps around to back to shoulders HPI Eren Merchant is a 64 year old female who presents here today for Above Complaints. Eren is a 64-year-old female with a history of stage 4 CKD, orthostatic hypotension, and interstitial lung disease, presenting with bilateral arm and back pain. Eren reports the sudden onset of bilateral arm pain on 07/11, described as hurting like crazy in the biceps. The pain subsequently radiated to the area above the shoulder blades and then across both shoulder blades, making it uncomfortable to lean against the back of a couch. This morning, the pain extended to the left side of the knees. The pain is more pronounced on the left side than the right. She has been taking extra strength Tylenol, which provides temporary relief, but the pain returns as the medication wears off. She denies any recent trauma, new exercise routines, or activities that could have precipitated the pain. Does use the elipitical. She also denies fever, chills, chest pain, or hip pain. She does report occasional head pain when lying on a pillow, which she attributes to a dental issue. Eren has a history of stage 4 CKD, with a recent eGFR of 31 mL/min/1.73 m . She also has a historyof orthostatic hypotension and was previously on Florinef, which was discontinued by her lot porter, Dr. Steve, due to episodes of elevated blood pressure. She currently takes Florinef as needed if her systolic blood pressure drops below 100 mmHg. Her home blood pressure readings usually range from 100-110/80 mmHg, but she occasionally records lower readings in the 80s, which gradually return to normal without intervention. She denies any current medications that would lower her blood pressure. Past medical history, appointments, medications, allergies reviewed. EXAM: BP 92/64 Pulse 90 Resp 16 Wt 79.8 kg (176 lb) LMP 01/07/2011 SpO2 100% BMI 29.29 kg/m General Appearance: Well appearing, alert, in no acute distress, well-hydrated, well nourished.. Lungs: Lungs clear to auscultation. No wheezing, rhonchi, rales.. Heart: RRR without murmur, gallop, or rubs. No ectopy. Musculoskeletal: Mild tenderness of the bicep muscle, biceps intact, mild discomfort of the lateralleft shoulder, patient has range of motion intact of the left shoulder but painful. She has moderate tenderness of the left mid trapezius muscle, upper trapezius muscle. No increasing pain with rotation of the neck, flexion extension of the neck. She has mild to moderate intercostal tenderness of the left side of the rib cage near the axilla. Right upper arm has less severe symptoms, including nolateral shoulder discomfort, mild to moderate upper trapezius tenderness.. 1. Myalgia (M79.10) Costochondritis (M94.0) Pain in both upper arms (M79.621) Musculoskeletal pain localized to the biceps, scapular region, and intercostal spaces. No recent trauma or new activities reported. Pain is alleviated by Tylenol. Physical exam reveals tenderness in the biceps, scapular region, and intercostal spaces. Differential diagnosis includes polymyalgia rheumatica. - Ordered ESR and CRP to evaluate for inflammatory markers. - Prescribed a 6-day course of oral corticosteroids; instructed to take with food and in the morning to minimize side effects such as jitteriness and insomnia. - Recommended massage therapy for trapezius muscle tension. - Follow-up with neurology to discuss potential correlation with Parkinson's disease. - Question use of elipitical. No red flags today in office. 2. Orthostatic hypotension (I95.1) History of orthostatic hypotension with variable blood pressure readings. Currently managed with Florinef as needed for systolic BP less than 100 mmHg. Recent BP reading was 89/61 mmHg. No current medications contributing to hypotension. - Continue monitoring BP at home. - Use Florinef as needed for systolic BP less than 100 mmHg. - Recheck BP in the office. RTO if not improving. This note was partly generated using [employer] voice recognition dictation and may contain some misspelled or inaccurate words missed on review. The patient consented to the use of [employer] software for draft documentation of the visit consistent with [facility] s Notice of Privacy Practices. documented in this encounterAdena [facility]03-17-20[facility] Telephone encounter Note* Telephone Encounter - Nelli Ricardo RN - 07/31/2024 9:17 AM EDT Patient calls for bilateral arm and shoulder pain that started over two weeks ago. Nurse triage completed and recommends see provider within 3 days. Pain is worse with movement and tylenol does dull the pain. Denies chest pain. Appt scheduled. Care advice reviewed. Reason for Disposition [1] MODERATE pain (e.g., interferes with normal activities) AND [2] present > 3 days Answer Assessment - Initial Assessment Questions 1. ONSET: Two weeks ago 2. LOCATION: Bilateral arms and shoulders 3. PAIN:- MODERATE (4-7): Interferes with normal activities (e.g., work or school) or awakens from sleep. 4. WORK OR EXERCISE:Patient doesn't recall any recent work or exercise issues. Believes it first started the week of July 10. 5. CAUSE: Patient is not certain. 6. OTHER SYMPTOMS: No neck pain, swelling, rash, fever, numbness, weakness Protocols used: Arm [id number] [facility]03-17-2025 Miscellaneous Notes* Telephone Encounter - Nelli Ricardo RN - 07/31/2024 9:17 AM EDT Patient calls for bilateral arm and shoulder pain that started over two weeks ago. Nurse triage completed and recommends see provider within 3 days. Pain is worse with movement and tylenol does dull the pain. Denies chest pain. Appt scheduled. Care advice reviewed. Reason for Disposition [1] MODERATE pain (e.g., interferes with normal activities) AND [2] present > 3 days Answer Assessment - Initial Assessment Questions 1. ONSET: Two weeks ago 2. LOCATION: Bilateral arms and shoulders 3. PAIN:- MODERATE (4-7): Interferes with normal activities (e.g., work or school) or awakens from sleep. 4. WORK OR EXERCISE:Patient doesn't recall any recent work or exercise issues. Believes it first started the week of July 10. 5. CAUSE: Patient is not certain. 6. OTHER SYMPTOMS: No neck pain, swelling, rash, fever, numbness, weakness Protocols used: Arm [id number] documented in this encounterAdena [facility] Medical Center02-24-2025 Instructions* Patient Instructions* Jacqueline Valadez APRN.CNP - 07/10/2024 10:07 AM EST Get fasting labs completed by September 23 Continue to take all medication as prescribed Keep scheduled appointments with specialists Continue to eat a well balanced diet and stay hydrated Mammogram due this year Message the office when ready to labs documented in this encounterAdena Regional [facility] Center02-24-2025 History of Present illness Narrative* Jacqueline Valadez APRN.CNP - 07/10/2024 10:00 AM EST Images from the original note were not included. Eren Merchant is a 64 year old female here for a Medicare wellness visit. Medicare Health Risk Assessment General Health Good Exercise: Minutes/Day 60 min Exercise: Days/Week 7 days Alcohol: Daily Use Never Alcohol: Drinks/Day Patient does not drink Alcohol: 6 or more drinks Never Feel off balance Yes (Light headed at times) Concerns: Teeth/Dentures No Concerns: Sexual function No Troubled by feelings None of the above Frequency: Eating healthy diet Nearly every day ADLs requiring help Safety precautions in home/vehicle Yes Smoke, vape, chews tobacco No Difficulty hearing No Difficulty seeing Yes (sometimes, has an eye appt next week) Current Providers Specialists: I have reviewed specialist-related care of the patient in the medical record. Perioperative Tech Pulmonology Endocrinology Medical/Family history review Reviewed and updated problem list, medical/surgical/family/social history, medications, and allergies. Opioid use review Opioid Medications (last 90 days) 05/05/2024 08:12 05/30/2024 23:59 Opioid Medications oxycodone HCl/acetaminophen (5-325 mg tab) Patient not taking as of 05/05/2024 8:12 AM (5-325 mg tab)-Discontinued Details Patient-reported Patient not taking Anxiety/Depression screening PHQ-2 Score: 0 (Lower risk for depression) Recommendation: no further intervention at this time Cognitive screening Mini Cog Score: 4 Cognitive screening reviewed and No further action needed (score 3-5). Functional Observation Was the patient's Timed Up & Go test unsteady or >= 12 seconds? No Advance Care Planning Patient did not wish or was not able to name a surrogate decision maker or provide an advance care plan Measurements BP 98/66 Pulse 88 Resp 16 Ht 165.1 cm (5' 5) Wt 80.8 kg (178 lb 2.1 oz) LMP 01/07/2011 BMI 29.64 kg/m Vision Screening: Follows with optometry/ophthalmology Assessment/Plan Medicare annual wellness visit, subsequent (Z00.00) - Counseled on healthy diet and regular exercise - Fall avoidance information provided - Personalized prevention plan provided This is a 64 year old female who presents today with: Patient presents with: Medicare Wellness Exam HISTORY OF PRESENT ILLNESS: Eren Merchant is a 64 year old female. Patient presents with: Medicare Wellness Exam Here in the office for extensive exam Nephrology: Follow up in September, Increased BUN, repeat lab pending now. Watching salt and sugar in thediet. Thyroid: Taking Synthroid 100 mcg daily. Estrace vaginal cream, 0.01%, 1 g vaginally 2 times a week as needed. Neuro: Tremor/Parkinsonian symptoms taking amitriptyline 100 mg at bedtime. Follow-up next month. Considering trying Sinemet. Concerns for possible Parkinson's. Tremors improved after stopping propanolol. Pap: Due at this time, has appt this summer. 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 Lemon PAST SURGICAL HISTORY OF 10/24/2009 Removed T9-L1, 2 rods and 8 screws, Dr Lemon PAST SURGICAL HISTORY OF 11/2018 Hysteroscopy with D&C and Polypectomy with Burroughs and NephCoverMe Truclear device PICC LINE INSERT/CONSULT 07/11/2018 THYMECTOMY PRTL/TOT TRANSCERVICAL APPR SPX 07/14/2018 WEDGE RESECT LUNG Right 03/25/2020 Right VATS wedge resection of upper, middle and lower lung for pulmonary infiltrates ALLERGIES Erythromycin, Hay Fever [Seasonal Allergies], and Zyrtec [Cetirizine Hcl] MEDICATIONS Current Outpatient Medications Medication Sig mycophenolate Mofetil (CELLCEPT) 500 mg tablet Take 1 tablet by mouth two times a day. levothyroxine (SYNTHROID) 100 mcg tablet Take 1 tablet by mouth once daily. Take on empty stomach amitriptyline (ELAVIL) 25 mg tablet Take 1 tablet by mouth daily at bedtime. Take in addition to your 75mg tablets so your full dose is 100mg. amitriptyline (ELAVIL) 75 mg tablet Take 1 tablet by mouth daily at bedtime. ondansetron (ZOFRAN) 4 mg tablet Take 1 tablet by mouth every 8 hours as needed for nausea/vomiting. estradiol (ESTRACE) 0.01 % (0.1 mg/gram) vaginal cream Use 1 g vaginally two times a week. biotin 5 mg tab Take 5 mg by mouth once daily. calcium carbonate 600 [...] Take 1 capsule by mouth once daily. fludrocortisone (FLORINEF) 0.1 mg tablet Take 1 tablet by mouth every 12 hours. (Patient not taking: Reported on 06/26/2024) Current Facility-Administered Medications Medication Dose Route Frequency cosyntropin 0.25 mg injection (CORTROSYN) 0.25 mg INTRAMUSCULAR PRN FAMILY HISTORY Problem Relation Age of Onset [...] or suicidal ideation. EXAM: BP 98/66 Pulse 88 Resp 16 Ht 165.1 cm (5' 5) Wt 80.8 kg (178 lb 2.1 oz) LMP 01/07/2011 BMI 29.64 kg/m PHYSICAL EXAM: General Appearance: Well appearing, alert, in no acute distress, well-hydrated, well nourished.. Skin: Skin color, texture, turgor normal, no suspicious rashes or lesions. Head: Normocephalic, no masses, lesions, tenderness or abnormalities. Eyes: Anicteric sclera. Extraocular movements are intact. Neck: Supple, no adenopathy; thyroid symmetric, normal size, no bruits. Lungs: Lungs clear to auscultation. No wheezing, rhonchi, rales. Heart: RRR without murmur, gallop, or rubs. No ectopy. Extremities: No deformities, edema, skin discoloration, clubbing or cyanosis. Good capillary refill. Peripheral Pulses: Normal, Capillary refill <2secs, strong peripheral pulses, Pulses palpable. Neurologic: Gait normal. Reflexes normal and symmetric. Sensation grossly intact. ASSESSMENT/PLAN: 1. Medicare annual wellness visit, subsequent - ICD9: V70.0, ICD10: Z00.00 (primary diagnosis) - Counseled on healthy diet and regular exercise - Discussed need and benefit for weight loss. BMI 29.64 kg/(m^2) - Follow up for annual exam in one year 2. Hypothyroidism, unspecified type - ICD9: 244.9, ICD10: E03.9 - Instructed patient on importance of taking on an empty stomach either first thing in the morning or at bedtime. 3. Stage 3a chronic kidney disease (HCC) - ICD9: 585.3, ICD10: N18.31 - eGFR: 31 Stable - Counseled on avoiding NSAIDs, adequate hydration - Counseled on low sodium diet - Keep scheduled appointments with Nephrology. 4. History of tremor - ICD9: V12.49, ICD10: Z86.69 - Stable, continue to take current medication. - Keep scheduled appointments with Neurology 5. Post-menopausal - ICD9: V49.81, ICD10: Z78.0 - Stable, continue to take current medication. Follow up in 1 year or sooner as needed. Discussed treatment plan and patient voices understanding. Patient's questions answered appropriately. Medications and potential side effects were discussed and patient voices understanding. Jacqueline Valadez APRN.SAMIR This note was partially generated using OpenEd voice recognition system. Note was reviewed for accuracy. There may be minor misspellings or grammar miscues with OpenEd voice recognition. documented [facility]* Diagnosis Onset Date Resolution Status Admit Date Candidiasis of esophagus acute July 07, 2024 9:16am [facility] Work Phone: [phone] [facility] History of Present illness Narrative* Raul Juan MD - 06/26/2024 8:54 AM EST Raul Juan MD Department of Orthopaedics Orthopaedics [address] [facility] [address] Dept: [phone] Dept June 26, 2024 CHIEF COMPLAINT: New and Pain of the Right Wrist HPI Patient here today for right wrist/hand pain x 2 months. She states pain comes and goes and it is difficult to use the thumb. She is right hand dominant. S/p right thumb CMC arthroplasty with LRTI 10/13/2017. ASSESSMENT: M79.644 Pain of right thumb (primary encounter diagnosis) PLAN: She is having some recurrence of pain at the base of the thumb t. There appears to be some subsidence over time under plain films. I would start with a topical and possibly a cortisone injection at some point. Revision surgery is a possibility her symptoms persist. Will continue to monitor patient for Pain of right thumb (primary encounter diagnosis), patient to schedule visit as per follow up discussed. FOLLOW UP INSTRUCTIONS: As needed OBJECTIVE: Ms. Eren Merchant is a pleasant 64 year old in no apparent distress. Gen:LMP 01/07/2011 nl development, non obese, no deformities ENT: Normocephalic, normal hearing, moist mucosa CV: Pulses:Radial= 2+ and symmetric, capillary refill < 2 secs, no peripheral edema/varicosities Skin: no rash, bruising or lesions. Good turgor. Psych: cooperative and appropriate, alert and oriented x 3, good mood and affect. Musculoskeletal: Overall contour looks appropriate. No hyperextension at the MCP joint. She does have some very minimal swelling and does have some pain on circumduction of the thumb without crepitance. IMAGING: Impression IMPRESSION: No acute fracture or dislocation. Remote trapezium resection with proximal migration of the first metacarpal base when compared to the prior exam. Remaining joint spaces are preserved. No osseous erosion. 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 Lemon PAST SURGICAL HISTORY OF 10/24/2009 Removed T9-L1, 2 rods and 8 screws, Dr Lemon PAST SURGICAL HISTORY OF 11/2018 Hysteroscopy with D&C and Polypectomy with Burroughs and NephCoverMe Truclear device PICC LINE INSERT/CONSULT 07/11/2018 THYMECTOMY PRTL/TOT TRANSCERVICAL APPR SPX 07/14/2018 WEDGE RESECT LUNG Right 03/25/2020 Right VATS wedge resection of upper, middle and lower lung for pulmonary infiltrates Family History: FAMILY HISTORY Problem Relation Age of Onset Hypertension Mother Thyroid Mother Heart Father Hypertension Father COPD Father Smoker. Heart Maternal Grandmother Stroke Maternal Grandmother Cancer Maternal Grandmother COLON Cancer Paternal Grandmother STOMACH Anesthesia Problems No Family History Social History: Social History Tobacco Use Smoking status: Never Passive exposure: Never Smokeless tobacco: Never Tobacco comments: No one in household smokes. Smoker in childhood home. Vaping Use Vaping status: Never Used Substance Use Topics Alcohol use: Yes Comment: Rarely Drug use: No Medications: Current Outpatient Medications Medication Sig mycophenolate Mofetil (CELLCEPT) 500 mg tablet Take 1 tablet by mouth two times a day. levothyroxine (SYNTHROID) 100 mcg tablet Take 1 tablet by mouth once daily. Take on empty stomach amitriptyline (ELAVIL) 25 mg tablet Take 1 tablet by mouth daily at bedtime. Take in addition to your 75mg tablets so your full dose is 100mg. amitriptyline (ELAVIL) 75 mg tablet Take 1 tablet by mouth daily at bedtime. ondansetron (ZOFRAN) 4 mg tablet Take 1 tablet by mouth every 8 hours as needed for nausea/vomiting. estradiol (ESTRACE) 0.01 % (0.1 mg/gram) vaginal cream Use 1 g vaginally two times a week. biotin 5 mg tab Take 5 mg by mouth once daily. calcium carbonate 600 [...] Take 1 capsule by mouth once daily. fludrocortisone (FLORINEF) 0.1 mg tablet Take 1 tablet by mouth every 12 hours. (Patient not taking: Reported on 06/26/2024) Current Facility-Administered Medications Medication Dose Route Frequency cosyntropin 0.25 mg injection (CORTROSYN) 0.25 mg INTRAMUSCULAR PRN Allergies: Erythromycin, Hay Fever [Seasonal Allergies], and Zyrtec [Cetirizine Hcl] ROS: General (negative for fatigue, malaise, weight loss/gain) HEENT (negative for headache, earache, recent vision changes, sinus pain, sore throat) Respiratory (no recent shortness of breath, hemoptysis) CV (negative for chest tightness, palpitations) Musculoskeletal (see HPI) Psych (no depression, anxiety) Raul Juan MD documented in this encounterA[facility]02-04-2025 Telephone encounter Note * Telephone Encounter - Juwan Land APRN.CNP - 06/20/2024 2:31 PM EST The following approved medication requests have been transmitted electronically. Requested Prescriptions Pending Prescriptions Disp Refills levothyroxine (SYNTHROID) 100 mcg tablet 90 tablet 3 Sig: Take 1 tablet by mouth once daily. Take on empty stomach Juwan Land APRN.CNP [facility]02-04-2025 Miscellaneous Notes* Telephone Encounter - Juwan Land APRN.CNP - 06/20/2024 2:31 PM EST The following approved medication requests have been transmitted electronically. Requested Prescriptions Pending Prescriptions Disp Refills levothyroxine (SYNTHROID) 100 mcg tablet 90 tablet 3 Sig: Take 1 tablet by mouth once daily. Take on empty stomach Juwan Land APRN.CNP * Telephone Encounter - Leyda Morfin LPN - 06/20/2024 2:06 PM EST Prescription Refill Information The patient has been identified by name and date of : Yes Caregiver verified no other encounters exist for this prescription request: Yes Caregiver confirmed with patient/requestor that no other refills are due, in the near future, with this provider at this time: Yes The last office visit in the department:04/10/2024 Does the patient have a future office visit with this provider/department: Yes Requested Prescriptions Pending Prescriptions Disp Refills levothyroxine (SYNTHROID) 100 mcg tablet 90 tablet 3 Sig: Take 1 tablet by mouth once daily. Take on empty stomach Leyda Morfin LPN June 20, 2024 2:09 PM documented in this encounterAdena [facility]02-04-2025 Telephone encounter Note * Telephone Encounter - Leyda Morfin LPN - 06/20/2024 2:06 PM EST Prescription Refill Information The patient has been identified by name and date of : Yes Caregiver verified no other encounters exist for this prescription request: Yes Caregiver confirmed with patient/requestor that no other refills are due, in the near future, with this provider at this time: Yes The last office visit in the department:04/10/2024 Does the patient have a future office visit with this provider/department: Yes Requested Prescriptions Pending Prescriptions Disp Refills levothyroxine (SYNTHROID) 100 mcg tablet 90 tablet 3 Sig: Take 1 tablet by mouth once daily. Take on empty stomach Leyda Morfin LPN June 20, 2024 2:09 PM [facility]02-04-[facility] History of Present illness Narrative* Becca Mir APRN.CNP - 06/20/2024 9:00 AM EST Images from the original note were not included. Pulmonary Medicine Patients name: Eren Merchant PCP: Priyanka Smith MD CC: follow-up HPI: Eren Merchant is a 64 year old female never smoker with PMH significant for thymoma, hypothyroidism, GERD, esophageal dysmotility (Reglan and PPI), ILD/NSIP. Pulmonary history dates back to 2019 with laboratory testing suggestive of vasculitis (positive p-ANCA/MPO). Chest CT showed peribronch ovascular groundglass opacities and central traction bronchiectasis. 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 Has previously not formally been seen by ILD clinic d/t travel c oncern. Previously on Cellcept and Prednisone. Prednisone d/c in Mar 2024. She presents today for follow-up NSIP. At her [facility] with Dr. Alcantara 04/17/24, she had recently stopped Prednisone d/t concerns for worsening renal failure during a hospitalization. Overall, stable respiratory symptoms at that time. Recommended follow-up chest CT after 2 months of being off steroid. She underwent CT 06/12/24 with no new concerns. Today, she continues to deny any signficant respiratory symptoms. No cough, wheezing, chest pain or shortness of breath. She had recent follow-up with GI and Nephrology. Underwent EGD on 06/[address] Cota at [facility], stable findings. Renal function has been stable with GFR 31. 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 If you have any questions, ask your nurse or doctor. CONTINUE taking these medications * amitriptyline 75 mg tablet Commonly known as: ELAVIL Take 1 tablet by mouth daily at bedtime. * amitriptyline 25 mg tablet Commonly known as: ELAVIL Take 1 tablet by mouth daily at bedtime. Take in addition to your 75mg tablets so your full dose [id number]. aspirin, enteric coated 81 mg EC tablet Commonly known as: ASPIRIN, ENTERIC COATED biotin 5 mg Tab calcium carbonate 600 mg-cholecalciferol 400 units 600 mg-10 mcg (400 unit) Tab Take 1 tablet by mouth two times a day. estradiol 0.01 % (0.1 mg/gram) vaginal cream Commonly known as: ESTRACE Use 1 g vaginally two times a week. fludrocortisone 0.1 mg tablet Commonly known as: FLORINEF levothyroxine 100 mcg tablet Commonly known as: SYNTHROID Take 1 tablet by mouth once daily. Take on empty stomach MULTI-DAY PLUS [employer]ER[employer] ORAL mycophenolate Mofetil 500 mg tablet Commonly known as: CELLCEPT Take 2 in am and one in pm ondansetron 4 mg tablet Commonly known as: ZOFRAN Take 1 tablet by mouth every 8 hours as needed for nausea/vomiting. PROBIOTIC 15 billion cell capsule Generic drug: L.acidophilus-L.rhamnosus * This list has 2 medication(s) that are the same as other medications prescribed for you. Read thedirections carefully, and ask your doctor or other care provider to review them with you. DATA: I personally reviewed and analyzed all labs, radiographs and available pulmonary function testing PFT: 11/2022 IMPRESSION: Spirometry is normal. The TLC, RV and RV/TLC are normal. The diffusing capacity is normal. CXR: Last XR Chest - Impression Only XR CHEST 2V FRONTAL/LAT Exam End: 03/03/2024 12:46 PM (Final result) Impression: IMPRESSION: Linear atelectatic changes at the left lung base. ... CT Chest: 06/12/2024 IMPRESSION: 1. Unchanged bronchiectasis and subpleural fibrosis compared to 11/02/2023. No honeycombing. 2. Moderate air trapping. 3. Small hiatal hernia. Upper Shaper: PSCKeysha Transcribe Date/Time: Jun 14 2024 12:54P Dictated by : CATIA RAMOS MD This examination was interpreted and the report reviewed and electronically signed by: CATIA RAMOS MD on Jun 14 2024 12:58PM EST Results-Findings * * *Final Report* * * DATE OF EXAM: Jun 12 2024 11:43AM [facility] [id number] - CT CHEST WO IVCON / PROCEDURE REASON: multiple diagnoses * * * * Physician Interpretation * * * * EXAMINATION: CHEST CT WITHOUT CONTRAST CLINICAL HISTORY: NSIP Technique: Spiral CT acquisition of the chest from the thoracic inlet to the upper abdomen without contrast. MQ: [id number] CT Radiation dose: Integrated Dose-length product (DLP) for this visit = 250 mGy*cm CT Dose Reduction Employed: Automated exposure control(AEC) and iterative recon Comparison: 11/02/2023 RESULT: Limitations: None. Lines, tubes, and devices: None. Lung parenchyma and airways: Traction bronchiectasis and subpleural fibrosis is present in a slight basilar predominant distribution. No definitive reticulation and no convincing peribronchial vascular distribution. No subpleural sparing and no honeycombing. Moderate air trapping is seen on free breathing images. No new, enlarging, or suspicious pulmonary nodules. Suture lines from prior presumed wedge resection in the posterior RIGHT upper lobe. Pleural space: No pleural effusion. No pleural thickening. Lower neck, lymph nodes, and mediastinum: Unchanged calcified RIGHT thyroid nodule. No lymphadenopathy in the supraclavicular, axillary, mediastinal, or hilar regions. Heart, pericardium, and thoracic vessels: The thoracic aorta and main pulmonary artery are normal in caliber. The cardiac chambers are normal in size. No coronary artery atherosclerotic calcifications are noted, although the study is not optimized for coronary assessment. No pericardial effusion or thickening. Bones and soft tissues: No destructive bone lesion. Upper abdomen: Small hiatal hernia. Prior cholecystectomy. Localizer images: Unremarkable. IMMUNIZATIONS Prevnar - 06/2022 Pneumovax 23 - xx Influenza - 03/16/2024 COVID-19 - 03/16/2024 RSV- xx Review of Systems Constitutional: Negative for activity change, appetite change, fatigue and unexpected weight change. HENT: Negative for congestion, mouth sores, nosebleeds and sinus pressure. Respiratory: Negative for cough, chest tightness, shortness of breath and wheezing. Cardiovascular: Negative for chest pain, palpitations and leg swelling. Neurological: Negative for dizziness, weakness and light-headedness. BP 99/69 (BP Site: Right Arm, BP Position: Sitting, BP Cuff Size: Regular Adult) Pulse 80 Wt 78.9 kg (174 lb) LMP 01/07/2011 SpO2 97% BMI 28.96 kg/m Physical Exam Vitals reviewed. Constitutional: General: She is not in acute distress. Appearance: Normal appearance. She is not ill-appearing. HENT: Head: Normocephalic. Nose: No rhinorrhea. Mouth/Throat: Mouth: Mucous membranes are moist. Pharynx: No oropharyngeal exudate. Cardiovascular: Rate and Rhythm: Normal rate and regular rhythm. Heart sounds: Normal heart sounds. Pulmonary: Effort: Pulmonary effort is normal. No respiratory distress. Breath sounds: No wheezing or rhonchi. Musculoskeletal: Right lower leg: No edema. Left lower leg: No edema. Skin: General: Skin is warm and dry. Capillary Refill: Capillary refill takes less than 2 seconds. Neurological: General: No focal deficit present. Mental Status: She is alert. ASSESSMENT/PLAN: 1. NSIP (nonspecific interstitial pneumonitis) ([facility]) - ICD9: 516.8, ICD10: J84.89 (primary diagnosis) - review of chest CT without sign of progression of disease, reviewed images with patient - continues to deny significant respiratory symptoms. - plan to decrease Cellcept to 500mg BID d/t GFR - continue off Prednisone. - plan for repeat PFT at October OV - continue to monitor with annual chest CT unless patient changes clinically. 2. assisted current use of immunosuppressive drug - ICD9: V58.69, ICD10: Z79.899 - recent labs reviewed with stable hepatic function, GFR 31 - see #1 3. CKD stage 3b, GFR 30-44 ml/min ([facility]) - ICD9: 585.3, ICD10: N18.32 - eGFR: 31 Stable - Follows with nephrology at [facility], Dr. Alfredo Barbosa/u scheduled in October, will add PFT Portions of this documentation were copied and pasted from previous office visit notes in order to provide a cohesive continuity of the history. The note has been reviewed and edited and updated as necessary. Becca Mir APRN.SAMIR I spent a total of 25 minutes on the date of the service which included preparing to see the patient, [id number] patient care, completing clinical documentation, performing a medically appropriate examination, counseling and educating the patient/family/caregiver, and ordering medications, tests,or procedures. documented in this encounterA[facility]02-04-2025 [facility] History of Present illness Narrative* Cara Connors RT(R) - 06/12/2024 11:00 AM EST Radiology Service Progress Note PATIENT NAME: Eren Merchant DATE OF SERVICE: June 12, 2024 TIME: 2:08 PM PATIENT IDENTITY VERIFICATION COMPLETED USING TWO (2) IDENTIFIERS: Name and Date of confirmedby patient verbally. FALL SCREENING: Has the patient had 2 falls in the last year or 1 fall with injury or currently using an Ambulatory Assistive Device (Walker, Cane, Wheelchair, Crutches, etc.)? No PATIENT GENDER DATA: Assigned female at . status: : No status:NO. PATIENT RELEVANT IMPLANT DATA REVIEWED: Yes PATIENT PRESENTS WITH AN IMPLANTABLE OR ATTACHED CAR SALES CONSULTANT: No RADIOLOGY DEPARTMENT: CT; Exam(s) Completed: Chest PERIPHERAL IV DATA: Not applicable SIGNED BY: RT Jonathon(R) June 12, 2024 2:08 PM documented in this encounterAdena [facility]01-27-2025 [facility] History of Present illness Narrative* Wiley Benitez MD - 06/09/2024 3:31 PM EST Images from the original note were not included. Telephone visit The patient has consented to this phone call. Female Pelvic Medicine & Reconstructive Surgery Follow-Up Eren Merchant is a 64 year old female, who presents for a follow-up of Chronic IC. Chief complaint: bladder pain People present: patient Last office visit 04/17/24: Chronic interstitial cystitis - Pt is s/p mirabegron, oxybutynin, interstim, botox 100 units, now botox 200 units with no improvement in OAB symptoms (had some improvement w/ interstim but didn't last long) - Voids q20 minutes, waking q1h at night; feels if she doesn't empty her bladder she is in severe discomfort - Last cystoscopy revealed Bladder mucosa was erythematous with petechiae and glomerulations at thebladder base and trigone upon entry of the cystoscope. - concerning for IC - Possible that she has been treated for OAB while she actually has picture more c/w IC - Recommend IC pathway- recommend elavil 10mg and uptitrating to 50-75mg on 01/10; had to stop 03/03given hydro, stones, falls etc - Also discussed other oral medications, PFPT, cystoscopy with fulguration v steroids, bladder installations as treatment options - Recommend pyridium PRN for 2-3 days when in - she has discussed amitriptyline w/ her other providers and they are okay with her restarting - plan to restart again at 10mg and titrate up to 75mg - f/u in 6-8 weeks History since last visit: Last night was up every 30 minutes. Taking amitryptiline 75mg. Usually goes every 45-60min even w/ elavil, but last night was worse. During the day she can void every 30 min. Kidney doctor recommended 1.5L. Doesn't drink anything after dinner. Eating an orange or having OJ every other day. OBJECTIVE: LMP 01/07/2011 General: Well appearing, alert, in no acute distress, well-hydrated, well nourished. Abdomen: deferred Impression: Eren Merchant is a 64 year old female with IC. Plan: Assessment & Plan Chronic interstitial cystitis - Pt is s/p mirabegron, oxybutynin, interstim, botox 100 units, now botox 200 units with no improvement in OAB symptoms (had some improvement w/ interstim but didn't last long) - Voids q20 minutes, waking q1h at night; feels if she doesn't empty her bladder she is in severe discomfort - Last cystoscopy revealed Bladder mucosa was erythematous with petechiae and glomerulations at thebladder base and trigone upon entry of the cystoscope. - concerning for IC - Possible that she has been treated for OAB while she actually has picture more c/w IC - Recommend IC pathway- recommend elavil 10mg and uptitrating to 50-75mg on 01/10; had to stop 03/03given hydro, stones, falls etc; restarted 04/17/24 (after discussing w/ other providers) - Also discussed other oral medications, PFPT, cystoscopy with fulguration v steroids, bladder installations as treatment options - Recommend pyridium PRN for 2-3 days when in flare - Today: increased to elavil 100mg; ordered 25mg tablets as she just picked up 90d supply of 75mg tablets - f/u 6 weeks Wiley Benitez MD I spent a total of 20 minutes on the date of the service which included preparing to see the patient, [id number] patient care, completing clinical documentation, obtaining and/or reviewing separately obtained history, and counseling and educating the patient/family/caregiver. documented in this encounterAdena [facility] Center01-21-2025 [facility] Medical Records Department [address] [place] [id number] History Physical Exam 06/06/24 1515 MR#: [id number] Acct: [id number] Name: EREN MERCHANT Rep #: [id number] : 1960 64 From: Aditya Friend DO PCP: Dr. Priyanka Smith MD Status:[facility] Location: [place] [address] HPI - General General Date of Admission: 06/06/24 Date of Service: 06/06/24 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: Brad esophagitis HPI Narrative EREN MERCHANT is a 64 F who presents 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: brad esophagititis Details: EREN MERCHANT is a 64 F who presents to the office today for establishment. She has a PMHx of CKD, hypothyroidism, overactive bladder, thymoma present w/ bilateral hydronephrosis, diverticulitis s/p two bowel resections. Pt was hospitalized 03.04.24 for seizure like activity at the [facility]. 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 She is on CellCept and prednisone for intersisital lung disease. During her stay she was found to have esophageal thickening on imaging. She underwent EGD and was found to have severe esophageal candidiasis. She was started on Diflucan and nystatin. She has a hx of esophageal candidiasis and dysphagia prior to this as well. Pt was feeling better on the anti fungal medications but once they stopped her symptoms slowly started coming back. She is having burning, globus sensation and occasional coughing. She feels like she may have the infection again. EGD 03.07.24; severe candidiasis w/ no bleeding, LA Grade D acute and erosive esophagitis with no bleeding, gastritis and normal duodenum. with recommendation for f/u in 8 weeks. 0 fluconazole 200 mg PO QDAY 14 tabs 2RF 2 weeks PFSH Medical History History of steroid therapy Wears glasses Post-menopausal Cancer Arthritis History of renal disease DVT (deep venous thrombosis) Easy bruising Syncope Dietary restriction History of diverticulitis Interstitial emphysema of lung Non-smoker History of edema Overactive bladder Intramural leiomyoma of uterus Esophageal dysmotility Abnormal Pap smear of vagina and vaginal HPV Positive P-ANCA titer Hypothyroid Home Medications ???Medication ???Instructions ???Recorded ???Last Taken ???Type aspirin 81 mg chewable tablet 81 mg PO DAILY@0800 06/28/18 06/02/24 History cholecalciferol (vitamin D3) 25 1,000 unit PO BID 06/28/18 06/05/24 History mcg (1,000 unit) tablet (Vitamin D3) geriatric [id number]-[id number]-[id number] 1 ea PO DAILY 06/28/18 06/05/24 History (Complete Senior tablet) mycophenolate mofetil 500 mg 1,000 mg PO DAILY 03/04/24 06/06/24 History tablet (CellCept) estradiol 0.01% (0.1 mg/gram) 1 g vaginal 2XW 04/06/24 Unknown History vaginal cream (Estrace) levothyroxine 100 mcg capsule 100 mcg PO QDAY 04/06/24 06/06/24 History ondansetron 4 mg disintegrating 4 mg PO Q8H PRN nausea and vomiting 04/06/24 Unknown History tablet Lactobacillus acidophilus 250 500 mmu cells PO DAILY 06/02/24 06/05/24 History million cell capsule (Probiotic Acidophilus) PREVAGEN 1 cap PO DAILY 06/02/24 06/05/24 History amitriptyline 50 mg tablet 75 mg PO QHS 06/02/24 06/05/24 History biotin 5,000 mcg sublingual tablet 5,000 mcg sublingual DAILY 06/02/24 06/05/24 History fludrocortisone 0.1 mg tablet 0.1 mg PO DAILY 06/02/24 06/06/24 History mycophenolate mofetil 500 mg tablet 500 mg PO QHS 06/02/24 06/05/24 History Allergy/AdvReac Type Severity Reaction Status Date / Time cetirizine (From Rust) Allergy Intermediate Rash Verified 06/06/24 14:34 erythromycin base AdvReac Intermediate Diarrhea Verified 06/06/24 14:34 azithromycin AdvReac Mild Diarrhea Verified 06/06/24 14:34 Family History Mother Thyroid disorder Hypertension Father Heart disease Hypertension COPD (chronic obstructive pulmonary disease) Surgical History Hx of colonoscopy History of esophagogastroduodenoscopy (EGD) Hx of tubal ligation Hx of bladder repair surgery H/O thymectomy History of spinal fusion History of cholecystectomy History of colon resection Social History Smoking Status: Never smoker alcohol intake: current alcohol intake frequency: holidays/special occasions only ROS Constitutional Constitutional: Denies fatigue, fever(s), poor appetite, weight gain or weight loss Gastrointestinal Gastrointestinal: Denies belching, bloating, change in bowel habits, change in stool character, chewing difficulty, coffee ground emesis, constipation, cramping, diarrhea, dyspepsia, dysphagia, early satiety, excessive flatus, fecal incontinence, heartburn, hematemesi (more content not included)...[facility]01-15-2025 Telephone encounter Note* Telephone Encounter - Jacqueline Valadez APRN.CNP - 05/31/2024 11:11 AM EST Noted, thank you. Jacqueline Valadez APRN.CNP [facility] Work Phone: [phone]) 366-184801-15-2025 Miscellaneous Notes* Telephone Encounter - Jacqueline Valadez APRN.CNP - 05/31/2024 11:11 AM EST Noted, thank you. Jacqueline Valadez APRN.CNP * Telephone Encounter - Mariam Woods LPN - 05/31/2024 10:31 AM EST Patient notified of results, verbalizes understanding of instructions. Pt stated the Tylenol Arthritis helps during the day. She also has an appt with Ortho this month. Mariam Woods LPN * Telephone Encounter - Jacqueline Valadez APRN.CNP - 05/31/2024 10:18 AM EST Can you please call the patient and let her know that I reviewed her x-ray results. X-rays showed No acute fractures or subluxations are noted. Bilateral patellofemoral joint space narrowing is demonstrated. There are mild tricompartmental osteophyte formation/bony spurs. There is no evidence of joint effusion. The mineralization of the bones is normal. There is no significant soft tissue swelling. These findings are consistent with arthritis. She may continue with Tylenol as needed. May considerphysical therapy to help strengthen the legs. If pain does not improve I recommend a consult with orthopedics. Please let me know if she has any questions. Thank you. Jacqueline Valadez APRN.CNP documented in [place] encounterKel[place] [address]-15-2025 Telephone encounter Note * Telephone Encounter - Mariam Woods LPN - 05/31/2024 10:31 AM EST Patient notified of results, verbalizes understanding of instructions. Pt stated the Tylenol Arthritis helps during the day. She also has an appt with Ortho this month. Mariam Woods LPN [facility]01-15-2025 Telephone encounter Note* Telephone Encounter - Jacqueline Valadez APRN.SAMIR - 05/31/2024 10:18 AM EST Can you please call the patient and let her know that I reviewed her x-ray results. X-rays showed No acute fractures or subluxations are noted. Bilateral patellofemoral joint space narrowing is demonstrated. There are mild tricompartmental osteophyte formation/bony spurs. There is no evidence of joint effusion. The mineralization of the bones is normal. There is no significant soft tissue swelling. These findings are consistent with arthritis. She may continue with Tylenol as needed. May considerphysical therapy to help strengthen the legs. If pain does not improve I recommend a consult with orthopedics. Please let me know if she has any questions. Thank you. Jacqueline Valadez APRN.EMPLOYMENT SERVICES DIRECTOR [facility]01-14-2025 Instructions* Patient Instructions* Gemma Roberts APRN.SAMIR - 05/30/2024 8:26 AM EST It was a pleasure to see you today. We addressed the following diagnoses: Dyskinesia, tardive Parkinsonism, unspecified parkinsonism type (hcc) (primary encounter diagnosis) My recommendations are as follows: 05/30/2024 Visit: Parkinsonism/Tremor: Continue monitoring Please let me know if you decide you would like to try Sinemet Exercise as able Tardive dyskinesia: Continue to monitor Interested in clinical research? Not discussed Movement Disorders Medication Schedule: Medications None Return in 2 months (on 08/03/2024). If there are any concerns before your next visit, please call or you can send a message through [employer]. You can also now schedule and select appointments through [employer]. Gemma Roberts APRN.SAMIR documented in this encounterAdena [facility] Center01-14-2025 History of Present illness Narrative* Gemma Roberts APRN.CNP - 05/30/2024 8:00 AM EST [facility] - FOLLOW UP EVALUATION Primary Neurologist: Bogdan Roberts MD Primary RUSSELL: SAMIR Madrigal MD [id number] [facility] [address] Dear Priyanka Smith MD: I had the pleasure of seeing Ms. Merchant for follow-up today. As you know she is a 64 year old right-handed female with a history of tremor since 2021. She is seen with her significant other, Michael. Subjective Previous Plan-03/16/2024 Visit: Parkinsonism/Tremor: Continue monitoring I am ordering a skin biopsy to hopefully differentiate whether this is Parkinson's disease or drug induced parkinsonism Exercise as able Tardive dyskinesia: Continue to monitor Other: Please call and follow up with your job hand regarding your prednisone being stopped while in the hospital Interval History: Tremor is better off the Reglan mostly except with the right hand when eating. Off the Reglan, she is having another scope done soon and has taken the Zofran a few times for nausea. Movement Disorders Medications Schedule - as of the start of the visit: Medications None Other Movement Disorder Prior Therapies Propranolol Cannot take Topamax and Zonisamide due to kidney stones Questionnaires: In addition, the following areas that may be affected by abnormal involuntary movements were evaluated: Daily activities Difficulties with eatin (none) Difficulties in dressin (none) Difficulties with hygiene activities: 0 (none) Difficulties with handwriting: Yes (slight) Difficulties with doing hobbies and other activities: 0 (none) Difficulties turning in bed: Difficulties getting out of bed, car or chair: Yes (slight) Tremors/Gait/Balance Shaking or tremors: Yes (slight) Walking and balance problems: 0 (none) Number of falls in the Last Month: 0 Gait freezin (none) Autonomic/Pain Lightheadeness on standin (none) Urinary problems: Yes (mild) Constipation problems: Yes (slight) Pain and other sensations: Yes (slight) Speech/Swallowing Speech problems: 0 (none) Droolin (none) Chewing and swallowing problems: 0 (none) Sleep/Fatigue Sleep problems: Yes (severe) She is seeing a kidney specialist tomorrow to see if the medication heprescribed is causing the headaches that are preventing her from sleeping well. Daytime sleepiness: Yes (mild) Fatigue: 0 (none) Mood/Behavior Depression: PHQ-9 Score: 1 usually representing no significant (0-4) depression. Anxiety: YOVANY-7 Total Score: 2 usually representing no significant (0-4) anxiety. Finally, the following table shows the patient's overall global physical and mental health using the PROMIS scale: PROMIS-10 Flowsheet Row Office Visit from 05/30/2024 in Neurology Office Visit from 01/13/2024 in Neurology Global Physical Health T Score 50.8 -- Global Mental Health T Score 67.6 56 0-10 Standard Pain Scale 4 -- *PROMIS-10 scoring scale: mean = 50, over 50 is above average, under 50 is below average ALLERGIES Allergen Reactions Erythromycin Diarrhea Hay Fever [Seasonal* Cough Zyrtec [Cetirizine * Itching Current Outpatient Medications Medication Sig amitriptyline (ELAVIL) 75 mg tablet Take 1 tablet by mouth daily at bedtime. mycophenolate Mofetil (CELLCEPT) 500 mg tablet Take 2 in am and one in pm fludrocortisone (FLORINEF) 0.1 mg tablet Take 1 tablet by mouth every 12 hours. ondansetron (ZOFRAN) 4 mg tablet Take 1 tablet by mouth every 8 hours as needed for nausea/vomiting. estradiol (ESTRACE) 0.01 % (0.1 mg/gram) vaginal cream Use 1 g vaginally two times a week. biotin 5 mg tab Take 5 mg by mouth once daily. levothyroxine (SYNTHROID) 100 mcg tablet Take 1 tablet by mouth once daily. Take on empty stomach calcium carbonate 600 mg-cholecalciferol 400 units 600 [...] Take 1 capsule by mouth once daily. Current Facility-Administered Medications Medication Dose Route Frequency cosyntropin 0.25 mg injection (CORTROSYN) 0.25 mg INTRAMUSCULAR PRN Objective Vital Signs: BP 153/89 (BP Site: Left Arm, BP Position: Sitting, BP Cuff Size: Regular Adult) Pulse 77 Ht 165.1 cm (5' 5) Wt 81.4 kg (179 lb 7.3 oz) LMP 01/07/2011 SpO2 98% BMI 29.86 kg/m Orthostatic Vitals: None for this encounter Patient's last menstrual period was 01/07/2011. Body mass index is 29.86 kg/m . Movement Disorders Scales Performed: MDS-UPDRS Motor subscale condition of exam Medication Off/On/Naiive Time of UPDRS 0800 Time of Last Medication Last Medication Taken DBS Right OFF DBS Left OFF MDS-UPDRS Motor subscale scores Speech 0-Normal. No speech problems. Facial Expression 1-Slight. Minimal masked facies manifested only by decreased frequency of blinking. Rigidity Neck 0-Normal. No rigidity. Rigidity Right Upper Extremity 0-Normal. No rigidity. Rigidity Left Upper Extremity 1-Slight. Rigidity only detected with activation maneuver. Rigidity Right Lower Extremity 1-Slight. Rigidity only detected with activation maneuver. Rigidity Left Lower Extremity 2-Mild. Rigidity detected without the activation maneuver, but full range of motion is easily achieved. Finger Taps Right 1-Slight. a) the regular rhythm is broken with one or two interruptions or hesitations of the tapping movement, b) slight slowing, c) the amplitude decrements near the end of the 10taps. Finger Taps Left 1-Slight. a) the regular rhythm is broken with one or two interruptions or hesitations of the tapping movement, b) slight slowing, c) the amplitude decrements near the end of the 10 taps. Hand Movements Right 1-Slight. a) the regular [...] of the ten taps. Leg Agility Right 1-Slight. a) the regular rhythm is broken with one or two interruptions or hesitations of the movement, b) slight slowing, c) the amplitude decrements near the end of the task. Leg Agility Left 2-Mild. a) 3 to 5 interruptions during the movements, b) mild slowness, c) the amplitude decrements midway in the task. Arise From Chair 1-Slight. Arising is slower than normal, or may need more than one attempt, or mayneed to move forward in the chair to arise. No need to use the arms of the chair. Gait 1-Slight. Independent walking with minor gait impairment. (She has bilateral absent arm swing) Gait Freezing 0-Normal. No freezing. Posture Stability 0-Normal. No problems: recovers with one or two steps. (deferred) Posture 2-Mild. Definite flexion, scoliosis or leaning to one side, but patient can correct postureto normal posture when asked to do so. Body Bradykinesia 1-Slight. Slight global slowness and poverty of spontaneous movements. Postural Tremor Hand Right 1-Slight. Tremor is present but less than 1cm in amplitude. Postural Tremor Hand Left 0-Normal. No tremor. [...] subscale totals Left Total 11 Right Total 8 Midline Total 6 Tremor Total / 10 5 PIGD Total / 3 1 Overall Total 26 Change Better/Worse WORSE % Change Compared to Last Filed Total (!) 62.5 Prqe-Wvqbhw-Cemgf Tremor Scale Medication OFF/ON Time of Assessment 0800 Time of Last Medication Last Medication Taken DBS_Right OFF DBS_Left OFF Face Tremor At Rest: 0 - None. Tongue Tremor At Rest: 0 - None. Posture Holdin - None. Voice Tremor Action and Intention: 0 - None. Head Tremor At Rest: 0 - None. Posture Holdin - None. RUE Tremor At Rest: 0 - None. Posture Holdin - Slight. May be intermittent. Action and Intention: 1 - Slight. May be intermittent. LUE Tremor At Rest: 2 - Moderate amplitude. May be intermittent. Posture Holdin - None. Action and Intention: 0 - None. Trunk Tremor At Rest: 0 - None. Posture Holdin - None. RLE Tremor At Rest: 0 - None. Posture Holdin - None. Action and Intention: 0 - None. LLE Tremor At Rest: 0 - None. Posture Holdin - None Action and Intention: 0 - None. Tremor Exam Subscore: 4 Assessment and Plan: Assessment Ms. Merchant is a right-handed 64 year old year old female with left > right resting tremor, rigidity and bradykinesia consistent with parkinsonism and involuntary tongue movement consistent with tardive dyskinesia. The parkinsonism may be drug-induced or unmasked Idiopathic Parkinson's disease. She does not have a family history of tremor or Parkinson's disease. The tremor is the most bothersome symptom to her and it is mostly in her right hand and mostly wheneating. On exam, she does have rigidity and bradykinesia, but she does not notice these symptoms. She does not want to start any medication right now due to her other medical issues, but may considerSinemet in the future to see if her symptoms improve with this. Of note, her insurance denied the skin biopsy to help us determine if this is drug induced parkinsonism or unmasked Parkinson's disease. The following are the current problems noted and addressed during this visit: Dyskinesia, tardive Parkinsonism, unspecified parkinsonism type (hcc) (primary encounter diagnosis) Plan 05/30/2024 Visit: Parkinsonism/Tremor: Continue monitoring Please let me know if you decide you would like to try Sinemet Exercise as able Tardive dyskinesia: Continue to monitor Interested in clinical research? Not discussed Updated Movement Disorders Medication Schedule: Medications None Level of service : 14034 (20-29 min). Time spent 26 min on the day of service, which included preparing to see the patient, [id number]-[id number] patient care, completing clinical documentation, obtaining and/or reviewing separately obtained history, performing a medically appropriate examination, and counseling and educating the patient/family/caregiver. Gemma Roberts APRN.EMPLOYMENT SERVICES DIRECTOR documented in this encounterAdena [facility] Center01-14-2025 [facility]01-08-2025 History of Present illness Narrative* Sakshi Suazo, RT(R) - 05/24/2024 10:10 AM EST Radiology Service Progress Note PATIENT NAME: Eren Merchant DATE OF SERVICE: May 24, 2024 TIME: 10:10 AM PATIENT IDENTITY VERIFICATION COMPLETED USING TWO (2) IDENTIFIERS: Name and Date of confirmedby patient verbally. FALL SCREENING: Has the patient had 2 falls in the last year or 1 fall with injury or currently using an Ambulatory Assistive Device (Walker, Cane, Wheelchair, Crutches, etc.)? No PATIENT GENDER DATA: Female. status: : No status: NO. PATIENT RELEVANT IMPLANT DATA REVIEWED: Not Applicable PATIENT PRESENTS WITH AN IMPLANTABLE OR ATTACHED CAR SALES CONSULTANT: No RADIOLOGY DEPARTMENT: General X-ray: Exam(s) Completed: Lower Extremity X- Ray(s): Knee, AP / Lat / Tunne / Merchant Bilateral and Wt. Bearing PERIPHERAL IV DATA: Not applicable SIGNED BY: RT Cinthya(R) May 24, 2024 10:10 AM documented in this encounterAdena Regional Medical Center01-08-2025 [facility]01-08-2025 Instructions* Patient Instructions* Jacqueline Valadez APRN.CNP - 05/24/2024 8:30 AM EST Get knee xray completed Continue to use Tylenol as needed for pain May elevate and apply ice as needed. May consider Voltaren gel in the future. Keep up coming appt with Orthopedics. documented in this encounterAdena Regional Medical Center01-08-2025 History of Present illness Narrative* Jacqueline Valadez APRN.CNP - 05/24/2024 8:20 AM EST This is a 64 year old female who presents today with: Patient presents with: Acute Visit: Bilat knee pain when getting up from sitting HISTORY OF PRESENT ILLNESS: Eren Merchant is a 64 year old female. Patient presents with: Acute Visit: Bilat knee pain when getting up from sitting Here in the office for bilateral knee and leg pain. Started in March. No injury to the area. Pain seems to be profressively getting worse. Knees both hurt when standing up. She reports that it hurts in her lower thigh also when she stands, it takes her a moment to get moving. She reports that ithurts when she does her walking exercises which she has a stationary cycling machine. She reports that the pain stops when walking. Using Tylenol as needed. 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 fludrocortisone (FLORINEF) 0.1 mg tablet Take 1 tablet by mouth every 12 hours. oxyCODONE-acetaminophen (PERCOCET) 5-325 mg tablet (Patient not taking: Reported on 05/05/2024) fluconazole (DIFLUCAN) 200 mg tablet Take 200 mg by mouth. (Patient not taking: Reported on 05/05/2024) melatonin 12 mg tab Take 2 tablets by mouth daily at bedtime. (Patient not taking: Reported on 05/05/2024) ondansetron (ZOFRAN) 4 mg tablet Take 1 tablet by mouth every 8 hours as needed for nausea/vomiting. estradiol (ESTRACE) 0.01 % (0.1 mg/gram) vaginal cream Use 1 g vaginally two times a week. biotin 5 mg tab Take 5 mg by mouth once daily. levothyroxine (SYNTHROID) 100 [...] Take 1 capsule by mouth once daily. Current Facility-Administered Medications Medication Dose Route Frequency cosyntropin 0.25 mg injection (CORTROSYN) 0.25 mg INTRAMUSCULAR PRN FAMILY HISTORY Problem Relation Age of Onset [...] history of dysuria, frequency or incontinence MUSCULOSKELETAL: + Bilateral knee and leg pain SKIN: Negative for lesions, rash, and itching ENDOCRINE: Negative for cold or heat intolerance, polyuria, polydipsia and goiter NEURO: No history of headaches, syncope, paralysis, seizures or tremors MOOD: Negative for depression, anxiety, or suicidal ideation. EXAM: BP 120/90 Pulse 93 Resp 16 Wt 81.4 kg (179 lb 7.3 oz) LMP 01/07/2011 SpO2 100% BMI 29.86 kg/m PHYSICAL EXAM: General Appearance: Well appearing, alert, in no acute distress, well-hydrated, well nourished.. Skin: Skin color, texture, turgor normal, no suspicious rashes or lesions. Head: Normocephalic, no masses, lesions, tenderness or abnormalities. Eyes: Anicteric sclera. Extraocular movements are intact. Extremities: No deformities, edema, skin discoloration, clubbing or cyanosis. Good capillary refill. Musculoskeletal: Full ROM of bilateral knees, crepitus noted. Negative valgus/varus. Negative anterior drawer's test. no edema noted. Peripheral Pulses: Normal, Capillary refill <2secs, strong peripheral pulses, Pulses palpable. Neurologic: Gait normal. Reflexes normal and symmetric. Sensation grossly intact. ASSESSMENT/PLAN: 1. Acute pain of both knees - ICD9: 338.19, 719.46, ICD10: M25.561, M25.562 - Get xray completed - Cannot use NSAIDS due to CKD, offered Voltaren gel, denied wanting to try at this time. - May use Tylenol as needed, elevate, and apply ice as needed. - XR KNEE GENERAL 4V AP BOTH/PA BOTH/LAT/MERC BILATERAL Follow-up pending test results or sooner as needed. Discussed treatment plan and patient voices understanding. Patient's questions answered appropriately. Medications and potential side effects were discussed and patient voices understanding. Jacqueline Valadez APRN.EMPLOYMENT SERVICES DIRECTOR This note was partially generated using Dragon voice recognition system. Note was reviewed for accuracy. There may be minor misspellings or grammar miscues with [employer] voice recognition. documented in this encounterA[facility] Tele[facility] encounter Note* Telephone Encounter - Lala Ruiz APRN.CNP - 05/23/2024 12:15 PM EST Pt scheduled for VV with Dr. Benitez 05/24/24 The following approved medication requests have been transmitted electronically. Requested Prescriptions Signed Prescriptions Disp Refills amitriptyline (ELAVIL) 75 mg tablet 90 tablet 1 Sig: Take 1 tablet by mouth daily at bedtime. Pharmacy Information Pharmacy Address Telephone [facility] [id number] [place], [place] [id number] Lala Ruiz APRN.CNP May 23, 2024 12:15 PM [facility]01-07-[facility]25 Miscellaneous Notes* Telephone Encounter - Lala Ruiz APRN.CNP - 05/23/2024 12:15 PM EST Pt scheduled for VV with Dr. Benitez 05/24/24 The following approved medication requests have been transmitted electronically. Requested Prescriptions Signed Prescriptions Disp Refills amitriptyline (ELAVIL) 75 mg tablet 90 tablet 1 Sig: Take 1 tablet by mouth daily at bedtime. Pharmacy Information Pharmacy Address Telephone [facility] [id number] [place], [place] [id number] Lala Ruiz APRN.CNP May 23, 2024 12:15 PM * Telephone Encounter - Noa Schmidt RN - 05/23/2024 12:01 PM EST Images from the original note were not included. LVV 04/17/24: Impression: Eren Merchant is a 64 year old female Assessment & Plan Chronic interstitial cystitis - Pt is s/p mirabegron, oxybutynin, interstim, botox 100 units, now botox 200 units with no improvement in OAB symptoms (had some improvement w/ interstim but didn't last long) - Voids q20 minutes, waking q1h at night; feels if she doesn't empty her bladder she is in severe discomfort - Last cystoscopy revealed Bladder mucosa was erythematous with petechiae and glomerulations at thebladder base and trigone upon entry of the cystoscope. - concerning for IC - Possible that she has been treated for OAB while she actually has picture more c/w IC - Recommend IC pathway- recommend elavil 10mg and uptitrating to 50-75mg on 01/10; had to stop 03/03given hydro, stones, falls etc - Also discussed other oral medications, PFPT, cystoscopy with fulguration v steroids, bladder installations as treatment options - Recommend pyridium PRN for 2-3 days when in - she has discussed amitriptyline w/ her other providers and they are okay with her restarting - plan to restart again at 10mg and titrate up to 75mg - f/u in 6-8 weeks Follow up 6-8 weeks in person or televisit documented in this encounterAdena [facility]01-07-2025 Telephone encounter Note * Telephone Encounter - Noa Schmidt RN - 05/23/2024 12:01 PM EST Images from the original note were not included. LVV 04/17/24: Impression: Eren Merchant is a 64 year old female Assessment & Plan Chronic interstitial cystitis - Pt is s/p mirabegron, oxybutynin, interstim, botox 100 units, now botox 200 units with no improvement in OAB symptoms (had some improvement w/ interstim but didn't last long) - Voids q20 minutes, waking q1h at night; feels if she doesn't empty her bladder she is in severe discomfort - Last cystoscopy revealed Bladder mucosa was erythematous with petechiae and glomerulations at thebladder base and trigone upon entry of the cystoscope. - concerning for IC - Possible that she has been treated for OAB while she actually has picture more c/w IC - Recommend IC pathway- recommend elavil 10mg and uptitrating to 50-75mg on 01/10; had to stop 03/03given hydro, stones, falls etc - Also discussed other oral medications, PFPT, cystoscopy with fulguration v steroids, bladder installations as treatment options - Recommend pyridium PRN for 2-3 days when in - she has discussed amitriptyline w/ her other providers and they are okay with her restarting - plan to restart again at 10mg and titrate up to 75mg - f/u in 6-8 weeks Follow up 6-8 weeks in person or televisit [facility]01[facility] Tele[facility] encounter Note* Telephone Encounter - Joy Arvizu LPN - 05/22/2024 10:02 AM EST AMAN: 04/17/24 Patient phones requesting refills as follows: Requested Prescriptions Pending Prescriptions Disp Refills mycophenolate Mofetil (CELLCEPT) 500 mg tablet 270 tablet 3 Sig: Take 2 in am and one in pm Please review and advise. Joy Arvizu LPN [facility]01-06-2025 Miscellaneous Notes* Telephone Encounter - Joy Arvizu LPN - 05/22/2024 10:02 AM EST AMAN: 04/17/24 Patient phones requesting refills as follows: Requested Prescriptions Pending Prescriptions Disp Refills mycophenolate Mofetil (CELLCEPT) 500 mg tablet 270 tablet 3 Sig: Take 2 in am and one in pm Please review and advise. Joy Arvizu LPN documented in this encounterAdena [facility] Center01-02-2025 Instructions* Patient Instructions* Latha Cuevas MD - 05/18/2024 11:55 AM EST Please do the test on fasting- take about 1.5 to 2 hrs documented in this encounterAdena [facility]01-02-2025 [facility]01-[facility]25 History of Present illness Narrative* Latha Cuevas MD - 05/18/2024 11:30 AM EST [facility] Follow up note Consulted by: Priyanka Smith MD 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: 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, alf use of systemic steroids HPI: This is a 64 year old female who presents with concerns of AI. Initial visit/ LV 05/05/24 (10 days ago) In Feb 2024, she had 2 falls and lightheadedness, one at home and one at the doctor's office, she went to the ED, and her BP was found low, along with Stage 3 CKD She has a hx of Insterstitial lung disease, and was on prednisone for about 4 years, started at 10 mg, and was jamarcus to 5 mg which she was on over one year. 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 Heart Maternal Grandmother Stroke Maternal Grandmother Cancer Maternal Grandmother COLON Cancer Paternal Grandmother STOMACH Anesthesia Problems No Family History SOCIAL HISTORY: Social History Tobacco Use Smoking status: Never Passive exposure: Never Smokeless tobacco: Never Tobacco comments: No one in household smokes. Smoker in childhood home. Vaping Use Vaping status: Never Used Substance Use Topics Alcohol use: Yes Comment: Rarely Drug use: No MEDICATIONS: Current Outpatient Medications Medication Sig amitriptyline (ELAVIL) 10 mg tablet Take 50 mg by mouth daily at bedtime. fludrocortisone (FLORINEF) 0.1 mg tablet Take 1 tablet by mouth every 12 hours. ondansetron (ZOFRAN) 4 mg tablet Take 1 tablet by mouth every 8 hours as needed for nausea/vomiting. estradiol (ESTRACE) 0.01 % (0.1 mg/gram) vaginal cream Use 1 g vaginally two times a week. biotin 5 mg tab Take 5 mg by mouth once daily. levothyroxine (SYNTHROID) 100 [...] Take 1 capsule by mouth once daily. oxyCODONE-acetaminophen (PERCOCET) 5-325 mg tablet (Patient not taking: Reported on 05/05/2024) fluconazole (DIFLUCAN) 200 mg tablet Take 200 mg by mouth. (Patient not taking: Reported on 05/05/2024) melatonin 12 mg tab Take 2 tablets by mouth daily at bedtime. (Patient not taking: Reported on 05/05/2024) No current facility-administered medications for this visit. ALLERGIES: ALLERGIES Allergen Reactions Erythromycin Diarrhea Hay Fever [Seasonal* Cough Zyrtec [Cetirizine * Itching REVIEW OF SYSTEMS: GENERAL: No weight loss, malaise or fevers HEENT: Negative for frequent or significant headaches, No changes in hearing or vision, no nose bleeds or other nasal problems NECK: Negative for lumps, goiter, pain and significant neck swelling RESPIRATORY: Negative for cough, hemoptysis, wheezing, COPD, dyspnea or shortness of breath CARDIOVASCULAR: Negative for chest pain, leg swelling, hypertension, CHF or palpitations GI: No nausea, vomiting, or diarrhea MUSCULOSKELETAL: Negative for joint pain or swelling, back pain or muscle pain SKIN: Negative for lesions, rash, and itching ENDOCRINE: Negative for cold or heat intolerance, polyuria, polydipsia and goiter NEURO: No history of headaches, syncope, paralysis, seizures or tremors All other reviewed and negative other than HPI. PHYSICAL EXAM: BP 146/98 (BP Site: Left Arm, BP Position: Sitting, BP Cuff Size: Large Adult) Pulse 87 Resp 20 Ht 165.1 cm (5' 5) Wt 81.4 kg (179 lb 6.4 oz) LMP 01/07/2011 SpO2 97% BMI 29.85 kg/m Body mass index is 29.85 kg/m . Examination deferred LABS: Latest Ref Rng 04/05/2024 04/17/2024 Albumin 3.9 - 4.9 g/dL 3.9 Calcium 8.5 - 10.2 mg/dL 9.6 10.3 (H) Phosphorus 2.7 - 4.8 mg/dL 3.2 Glucose 74 - 99 mg/dL 109 (H) 106 (H) BUN 7 - 21 mg/dL 21 28 (H) Creatinine 0.58 - 0.96 mg/dL 2.05 (H) 1.68 (H) Sodium 136 - 144 mmol/L 137 140 Potassium 3.7 - 5.1 mmol/L 4.0 3.1 (L) Chloride 98 - 107 mmol/L 102 106 CO2 22 - 30 mmol/L 22 21 (L) Anion Gap 8 - 15 mmol/L 13 13 eGFR >=60 mL/min/1.73m 26 (L) 33 (L) PTH, Intact 15 - 65 pg/mL 47 Vitamin D 25 Hydroxy 31.0 - 80.0 ng/mL 49.0 Latest Ref Rng 05/11/2024 Protein, Total 6.3 - 8.0 g/dL 6.9 Albumin 3.9 - 4.9 g/dL 3.9 Calcium 8.5 - 10.2 mg/dL 9.8 Bilirubin, Total 0.2 - 1.3 mg/dL 0.4 Alkaline Phosphatase 34 - 123 U/L 98 AST 13 - 35 U/L 20 ALT 7 - 38 U/L 17 Glucose 74 - 99 mg/dL 96 BUN 7 - 21 mg/dL 25 (H) Creatinine 0.58 - 0.96 mg/dL 1.73 (H) Sodium 136 - 144 mmol/L 142 Potassium 3.7 - 5.1 mmol/L 3.9 Chloride 98 - 107 mmol/L 108 (H) CO2 22 - 30 mmol/L 22 Anion Gap 8 - 15 mmol/L 12 eGFR >=60 mL/min/1.73m 32 (L) Cortisol 4.8 - 19.5 ug/dL 10.2 ACTH 7.2 - 63.3 pg/mL 64.8 (H) Legend: (H) High (L) Low ASSESSMENT : 64 year old female presenting with concerns for possible AI due to alf steroid therapy PLAN: 1. 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 (HCC) (E27.40) 2. assisted systemic 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 (Z79.52) Due to hx of systemic steroid use for about 4 years she is at risk of secondary AI. She was on a physiological dose, and tapering would be a better option due to prolonged use and the fact that she was having symptoms of lightheadedness prior to discontinuation At this time, she is only on florinef 0.1 mg BID. Normal potassium on CMP Labs show normal cortisol but ACTH is elevated- concerns for partial primary vs recovering secondary AI due to steroids. Discussed doing ACTH stimulation test to make sure this is not primary. If it is, then will discusssteroid Rx I also reviewed starting on small dose of hydrocortisone with slow taper to help adrenal recovery if in case this is not primary, followed by repeat labs on d/c Elevated calcium on labs: Repeat levels are normal Plan: Cosyntropin stimulation test FOLLOW UP: first available after labs are completed Medical Decision Making: Problems: Moderate: New problem with uncertain prognosis Data: Unique test result(s) reviewed: 3+ Unique test(s) ordered: 3+ Risk: Moderate: Moderate risk from testing/treatment Medical Decision Making Level: 4 - Moderate Latha Cuevas MD Endocrinology Associate Staff [facility] Endocrinology and Metabolism [place] [phone] documented in this encounterAdena [facility] Center12-20-2024 Instructions* Patient Instructions* Latha Cuevas MD - 05/05/2024 8:38 AM EST Please do labs on fasting at 8 am Hold the supplements for about 3 to 5 days before labs are drawn documented in this encounterAdena [facility]12-20-2024 [facility]12-20-2024 History of Present illness Narrative* Latha Cuevas MD - 05/05/2024 8:28 AM EST [facility] Initial Clinic Visit Note Consulted by: Priyanka Smith MD 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: 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, alf use of systemic steroids HPI: This is a 64 year old female who presents with concerns In Feb 2024, she had 2 falls and lightheadedness, one at home and one at the doctor's office, she went to the ED, and her BP was found low, along with Stage 3 CKD She has a hx of Insterstitial lung disease, and was on prednisone for about 4 years, started at 10 mg, and was jamarcus to 5 mg which she was on over one year. 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 Heart Maternal Grandmother Stroke Maternal Grandmother Cancer Maternal Grandmother COLON Cancer Paternal Grandmother STOMACH Anesthesia Problems No Family History SOCIAL HISTORY: Social History Tobacco Use Smoking status: Never Passive exposure: Never Smokeless tobacco: Never Tobacco comments: No one in household smokes. Smoker in childhood home. Vaping Use Vaping status: Never Used Substance Use Topics Alcohol use: Yes Comment: Rarely Drug use: No MEDICATIONS: Current Outpatient Medications Medication Sig amitriptyline (ELAVIL) 10 mg tablet Take 50 mg by mouth daily at bedtime. fludrocortisone (FLORINEF) 0.1 mg tablet Take 1 tablet by mouth every 12 hours. ondansetron (ZOFRAN) 4 mg tablet Take 1 tablet by mouth every 8 hours as needed for nausea/vomiting. estradiol (ESTRACE) 0.01 % (0.1 mg/gram) vaginal cream Use 1 g vaginally two times a week. biotin 5 mg tab Take 5 mg by mouth once daily. levothyroxine (SYNTHROID) 100 [...] Take 1 capsule by mouth once daily. oxyCODONE-acetaminophen (PERCOCET) 5-325 mg tablet (Patient not taking: Reported on 05/05/2024) fluconazole (DIFLUCAN) 200 mg tablet Take 200 mg by mouth. (Patient not taking: Reported on 05/05/2024) melatonin 12 mg tab Take 2 tablets by mouth daily at bedtime. (Patient not taking: Reported on 05/05/2024) No current facility-administered medications for this visit. ALLERGIES: ALLERGIES Allergen Reactions Erythromycin Diarrhea Hay Fever [Seasonal* Zyrtec [Cetirizine * Itching REVIEW OF SYSTEMS: GENERAL: No weight loss, malaise or fevers HEENT: Negative for frequent or significant headaches, No changes in hearing or vision, no nose bleeds or other nasal problems NECK: Negative for lumps, goiter, pain and significant neck swelling RESPIRATORY: Negative for cough, hemoptysis, wheezing, COPD, dyspnea or shortness of breath CARDIOVASCULAR: Negative for chest pain, leg swelling, hypertension, CHF or palpitations GI: No nausea, vomiting, or diarrhea MUSCULOSKELETAL: Negative for joint pain or swelling, back pain or muscle pain SKIN: Negative for lesions, rash, and itching ENDOCRINE: Negative for cold or heat intolerance, polyuria, polydipsia and goiter NEURO: No history of headaches, syncope, paralysis, seizures or tremors All other reviewed and negative other than HPI. PHYSICAL EXAM: BP 108/76 (BP Site: Right Arm, BP Position: Sitting, BP Cuff Size: Regular Adult) Pulse 91 Temp36.8 C (98.2 F) (Temporal Artery) Ht 165.1 cm (5' 5) Wt 80.1 kg (176 lb 9.6 oz) LMP 01/07/2011 SpO2 97% BMI 29.39 kg/m Body mass index is 29.39 kg/m . General Appearance: Well appearing, alert, in no acute distress, well-hydrated, well nourished, moderately built Skin: Skin color, texture, turgor normal, no suspicious rashes or lesions. Eyes: Anicteric sclera. Extraocular movements are intact. . Neck: Supple, no adenopathy; thyroid symmetric, normal size, no bruits. Lungs: unlabored breathing on room air Heart: regular rate and rhythm Extremities: No deformities, edema, skin discoloration, clubbing or cyanosis. No tremors of outstretched arms Musculoskeletal: No joint swelling, deformity, or tenderness. Peripheral Pulses: Normal. Neurologic: Gait normal. Reflexes normal and symmetric. LABS: Latest Ref Rng 04/05/2024 04/17/2024 Albumin 3.9 - 4.9 g/dL 3.9 Calcium 8.5 - 10.2 mg/dL 9.6 10.3 (H) Phosphorus 2.7 - 4.8 mg/dL 3.2 Glucose 74 - 99 mg/dL 109 (H) 106 (H) BUN 7 - 21 mg/dL 21 28 (H) Creatinine 0.58 - 0.96 mg/dL 2.05 (H) 1.68 (H) Sodium 136 - 144 mmol/L 137 140 Potassium 3.7 - 5.1 mmol/L 4.0 3.1 (L) Chloride 98 - 107 mmol/L 102 106 CO2 22 - 30 mmol/L 22 21 (L) Anion Gap 8 - 15 mmol/L 13 13 eGFR >=60 mL/min/1.73m 26 (L) 33 (L) PTH, Intact 15 - 65 pg/mL 47 Vitamin D 25 Hydroxy 31.0 - 80.0 ng/mL 49.0 Legend: (H) High (L) Low ASSESSMENT : 64 year old female presenting with concerns for possible AI due to alf steroid therapy PLAN: 1. 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 (HCC) (E27.40) 2. assisted systemic 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 (Z79.52) Due to hx of systemic steroid use for about 4 years she is at risk of secondary AI. She was a physiological dose, and tapering would be a better option due to prolonged use and the fact that she was having symptoms of lightheadedness prior to discontinuation At this time, she is only on florinef 0.1 mg BID and this does not serve to help other features of AI although there is a slight chance this has been helping her BP a tiny bit Explained pathophysiology of iatrogenic AI She has lightheadedness and syncopal episodes, and we reviewed checking for cortisol and ACTH to evaluate for this. Will also check CMP due to being on florinef 3. Hypercalcemia: Patient has high total calcium on BMP, no albumin available for correction. But labs in 03/2024 with normal calcium, PTH and Vit D I will checked a CMP for this FOLLOW UP: first available The patient is to continue to follow up with his/her PCP and with other consultants regarding his/her other medical problems. I will share today's office note to the consulting physician Priyanka Smith MD Medical Decision Making: Problems: Moderate: New problem with uncertain prognosis Data: Unique test result(s) reviewed: 3+ Unique test(s) ordered: 3+ Independent interpretation of test from other physician/QHCP Medical Decision Making Level: 4 - Moderate Latha Cuevas MD Endocrinology Associate Staff [facility] Endocrinology and Metabolism [place] [phone] documented in this encounterAdena [facility] Center12-02-2024 Instructions* Patient Instructions* Wiley Benitez MD - 04/17/2024 1:08 PM EST Take 10mg amitriptyline at bedtime for 1 week Then take 20mg amitriptyline at bedtime for 1-2 weeks Then take 50mg amitriptyline at bedtime for 2 weeks Then can increase one last time if needed to 75mg amitriptyline at bedtime Please follow up with virtual visit in 6-8 weeks to see how you're doing with this medication. documented in this encounterAdena [facility] Center12-02-2024 [facility] History of Present illness Narrative* Wiley Benitez MD - 04/17/2024 12:54 PM EST Images from the original note were not included. Telephone visit Female Pelvic Medicine & Reconstructive Surgery Follow-Up Eren Merchant is a 64 year old female, who presents for a follow-up of chronic IC . Last office visit : Chronic interstitial cystitis - Pt is s/p mirabegron, oxybutynin, interstim, botox 100 units, now botox 200 units with no improvement in OAB symptoms (had some improvement w/ interstim but didn't last long) - Voids q20 minutes, waking q1h at night; feels if she doesn't empty her bladder she is in severe discomfort - Last cystoscopy revealed Bladder mucosa was erythematous with petechiae and glomerulations at thebladder base and trigone upon entry of the cystoscope. - concerning for IC - Possible that she has been treated for OAB while she actually has picture more c/w IC - Recommend IC pathway- recommend elavil 10mg and uptitrating to 50-75mg on 01/10 - Also discussed other oral medications, PFPT, cystoscopy with fulguration v steroids, bladder installations as treatment options - Recommend pyridium PRN for 2-3 days when in -03/03: recommend titrating down and off of amitryptiline while she is undergoing neuro/falls/seizure workup. Elavil is helpful kimber at night, but given large increase in falls recently safest to be off of it. Can discuss once acute issue resolves if safe to restart. Taper discussed as 50mg 4-5d, then 25mg 4- 5 days then stop. Dizziness Recommend she present to ER for evaluation today given witnessed fall vs seizure in the office waiting room. I told her I have serious concerns about her safety and she should have an evaluation thatshouldn't wait until Wednesday. She has family with her today and agreed with my recommendation and said she would go to [place] [facility]. History since last visit: Was admitted to the hospital, found to have 2 kidney stones, hydronephrosis, reduced GFR; seen by urology and had stones removed and bilateral ureteral stents placed, now removed a few days ago. Overall feeling much better. Her falls 2/2 blood pressure decreasing in the setting of all this. Has UTI currently , being treated by PCP. Has to drink 2L water every day given the bilateral stones. Up frequently at night especially even after holding off on fluids for hours. Feels that the elavil was helping her before we had to take her off of it because of the above. OBJECTIVE: LMP 01/07/2011 General: Well appearing, alert, in no acute distress, well-hydrated, well nourished. Abdomen: deferred Impression: Eren Merchant is a 64 year old female Assessment & Plan Chronic interstitial cystitis - Pt is s/p mirabegron, oxybutynin, interstim, botox 100 units, now botox 200 units with no improvement in OAB symptoms (had some improvement w/ interstim but didn't last long) - Voids q20 minutes, waking q1h at night; feels if she doesn't empty her bladder she is in severe discomfort - Last cystoscopy revealed Bladder mucosa was erythematous with petechiae and glomerulations at thebladder base and trigone upon entry of the cystoscope. - concerning for IC - Possible that she has been treated for OAB while she actually has picture more c/w IC - Recommend IC pathway- recommend elavil 10mg and uptitrating to 50-75mg on 01/10; had to stop 03/03given hydro, stones, falls etc - Also discussed other oral medications, PFPT, cystoscopy with fulguration v steroids, bladder installations as treatment options - Recommend pyridium PRN for 2-3 days when in - she has discussed amitriptyline w/ her other providers and they are okay with her restarting - plan to restart again at 10mg and titrate up to 75mg - f/u in 6-8 weeks Follow up 6-8 weeks in person or televisit Wiley Benitez MD I spent a total of 20 minutes on the date of the service which included preparing to see the patient, [id number] patient care, completing clinical documentation, obtaining and/or reviewing separately obtained history, and counseling and educating the patient/family/caregiver. documented in this encounterAdena Regional Medical Center12-02-2024 History of Present illness Narrative* Karen Alcantara MD - 04/17/2024 9:30 AM EST Images from the original note were not included. . Respiratory [place] Note Patient name: Eren Merchant PCP: Priyanka Smith MD CC: Follow-up HPI: Eren Merchant 63 year old female never smoker with PMH significant for thymoma, hypothyroidism, GERD, esophageal dysmotility, ILD/NSIP. Pulmonary history dates back to 2019 with laboratory testing suggestive of vasculitis (positive p-ANCA/MPO). Chest CT showed peribronchovascular groundglassopacities and central traction bronchiectasis. 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 She was started on prednisone and CellCept. Required increase in her CellCept dose [id number] mg a day after surveillance CT showed new groundglass opacities. She has been maintained on 5 m g of prednisone. She opted not continue to follow with the ILD clinic on a regular basis due to difficulty traveling the distance. Since her last office visit she was admitted to local hospital and then transferred to [facility] when she presented with syncope. Discovered to have significant hypotension, worsening renal function, bilateral hydronephrosis due to nephrolithiasis requiring stent placement followed by lithotripsy. She is currently on nitrofurantoin for Proteus mirabilis UTI. Shehad been on Reglan as well as a proton pump inhibitor for her esophageal dysmotility. Reglan was stopped due to development of tardive dyskinesia. Last EGD showed Brad esophagitis on Diflucan. Herprednisone was discontinued when she was in the hospital due to concerns of worsening renal function. From a respiratory standpoint she states she has been doing well. She denies any significant shortness of breath, chest pain, cough. Review of her chest CT from [facility] shows new area in her right lower lobe. No progression of fibrotic lung or new areas of groundglass opacification. DATA: Labs: Component Ref Range & Units 12 d ago (04/05/24) 2 mo ago (01/31/24) Albumin 3.9 - 4.9 g/dL 3.9 4.1 Calcium, Total 8.5 - 10.2 mg/dL 9.6 10.0 Phosphorus 2.7 - 4.8 mg/dL 3.2 Glucose 74 - 99 mg/dL 109 High BUN 7 - 21 mg/dL 21 27 High Creatinine 0.58 - 0.96 mg/dL 2.05 High 1.75 High Sodium 136 - 144 mmol/L 137 140 Potassium 3.7 - 5.1 mmol/L 4.0 4.2 Chloride 98 - 107 mmol/L 102 106 CO2 22 - 30 mmol/L 22 24 Anion Gap 8 - 15 mmol/L 13 10 Estimated Glomerular Filtration Rate >=60 mL/min/1.73m 26 Low 32 Low CM One year ago BUN/Cr 24/1.13 GFR 54 omponent Ref Range & Units 1 mo ago Auto WBC 3.6 - 10.7 10*3/uL 13.8 High RBC 3.80 - 5.20 10*6/uL 3.95 Hemoglobin 11.7 - 16.0 g/dL 10 Low Hematocrit 35.0 - 47.0 % 31.4 Low MCV 77.0 - 99.0 fL 79.5 MCH 26.0 - 34.0 pg 25.3 Low MCHC 30.5 - 36.0 % 31.8 RDW 11.5 - 15.0 % 15.3 High Platelets 140 - 440 10*3/uL 401 MPV 9.0 - 12.7 fL 10.3 CTA chest 02/2024 at [facility]: FINDINGS: There is a stable low-attenuation nodule within the right lobe of the thyroid gland. Normal enhancement of the main pulmonary artery and right and left pulmonary arteries. Normal enhancement of the bilateral peripheral pulmonary arteries. There is no demonstrated pulmonary embolism. Normal thoracic aorta and visualized great vessels. There is no demonstrated aortic dissection. Normal heart and pericardium. There is circumferential wall thickening of the mid and distal esophagus. There is a small hiatal hernia. Normal hilar regions. There is mild bilateral bronchiectasis most pronounced within the lower lungs. There is bibasilar atelectasis and/or scarring Normal chest wall structures. There is a stable T11 superior endplate deformity. Normal visualized upper abdomen. 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 GERD (gastroesophageal reflux disease) 10/01/2017 Hives Intramural leiomyoma of uterus Malnutrition of moderate degree ([facility]) 06/15/2018 Nephrolithiasis NSIP (nonspecific interstitial pneumonia) ([facility]) Obesity, Class I, BMI 30-34.9 E66.9 09/03/2017 Osteopenia Overactive bladder Primary osteoarthritis of first carpometacarpal joint of right hand 08/05/2017 Added automatically from request for surgery [id number] Rectal bleed 09/05/2014 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, 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 Unspecified hypothyroidism ALLERGIES Allergen Reactions Erythromycin Diarrhea Hay Fever [Seasonal* Zyrtec [Cetirizine * Itching fludrocortisone (FLORINEF) 0.1 mg tablet Take 1 tablet by mouth every 12 hours. oxyCODONE-acetaminophen (PERCOCET) 5-325 mg tablet fluconazole (DIFLUCAN) 200 mg tablet Take 200 mg by mouth. nitrofurantoin monohydrate and macrocrystal (MACROBID) 100 mg capsule Take 1 capsule by mouth two times a day with meals for 7 days. ondansetron (ZOFRAN) 4 mg tablet Take 1 tablet by mouth every 8 hours as needed for nausea/vomiting. biotin 5 mg tab Take 5 mg by mouth once daily. levothyroxine (SYNTHROID) 100 [...] Take 1 capsule by mouth once daily. melatonin 12 mg tab Take 2 tablets by mouth daily at bedtime. (Patient taking differently: Take 10 mg by mouth daily at bedtime.) estradiol (ESTRACE) 0.01 % (0.1 mg/gram) vaginal cream Use 1 g vaginally two times a week. Social History Tobacco Use Smoking status: Never [...] UNI/BI Tubal ligation LX PARTIAL COLECTOMY 12/23/2017 [facility] lap lysis of adhesions, left oopherectomy, [...] No fevers, chills, nightsweats, unintended weight loss EYES: No diplopia or blurry vision. CARDIOVASCULAR: No chest pain, dyspnea, palpitations. Some edema PULM: See HPI GI: See HPI : See HPI NEURO: Tremors INTEGUMENTARY: No new skin changes PHYSICAL EXAMINATION: Wt 176 lb (79.8kg) LMP 01/07/2011 BP 122/72, pulse 8217, SpO2 99% on room air General Appearance: Age-appropriate female, NAD. Skin: Vitiligo. Head: Normocephalic, no masses, lesions, tenderness or abnormalities. Eyes: Sclera, conjunctiva normal. Neck: No JVD, no masses, no adenopathy. Lungs: Not labored, normal to percussion, no wheezes or crackles. Heart: Regular rate and rhythm, no murmurs gallops. Extremities: Minimal edema, no clubbing, no nailbed abnormalities. Assessment/Plan: 1. NSIP/ILD -Has been stable on Cellcept and low dose prednisone -Most recent chest CT without evidence of progression of disease and patient remains asymptomatic -Since her prednisone has been discontinued, will update chest CT in 2 months off therapy 2. High risk medication use -Recent infection due to nephrolithiasis -CBC stable 3. Nephrolithiasis -S/p recent stents and lithotripsy 4. CKD stage 4 -New decline in renal function likely due to obstructive nephropathy -Follows with nephrology -Pending repeat BMP I spent a total of 44 minutes on the date of the service which included preparing to see the patient, [id number] patient care, completing clinical documentation, obtaining and/or reviewing separately obtained history, performing a medically appropriate examination, ordering medications, tests, or procedures, and independently interpreting results (not separately reported). Karen Alcantara MD Respiratory [place] documented in this encounterAdena Regional Medical Center12-02-2024 [facility]11-29-2024 Telephone encounter Note* Telephone Encounter - Pili Olson MA - 04/14/2024 8:45 AM EST Patient notified and voiced understanding. Pili Olson MA [facility]11-29-2024 Miscellaneous Notes* Telephone Encounter - Pili Olson MA - 04/14/2024 8:45 AM EST Patient notified and voiced understanding. Pili Olson MA * Telephone Encounter - Jonathan Monterroso APRN.CNP - 04/14/2024 8:00 AM EST Please let patient know her culture shows E coli infection that is not responsive to the antibiotics I gave her. I have sent in a new prescription. documented in this encounterAdena Regional Medical Center11-29-2024 Telephone encounter Note * Telephone Encounter - Jonathan Monterroso APRN.CNP - 04/14/2024 8:00 AM EST Please let patient know her culture shows E coli infection that is not responsive to the antibiotics I gave her. I have sent in a new prescription. [facility]11-25-[facility]24 [facility]11-25-2024 History of Present illness Narrative* Jonathan Monterroso APRN.CNP - 04/10/2024 4:11 PM EST 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 Patient presents with: UTI HPI Eren Merchant is a 64 year old female who presents here today for Above Complaints.. Patient presents for urinary complaints following stent removal on 04/06. , Past medical history, appointments, medications, allergies reviewed. 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 ondansetron (ZOFRAN) 4 mg tablet Take 1 tablet by mouth every 8 hours as needed for nausea/vomiting. estradiol (ESTRACE) 0.01 % (0.1 mg/gram) vaginal cream Use 1 g vaginally two times a week. biotin 5 mg tab Take 5 mg by mouth once daily. levothyroxine (SYNTHROID) 100 [...] mouth once daily. No current facility-administered medications on file prior to visit. Social History Social History Tobacco Use Smoking status: Never Passive exposure: Never Smokeless tobacco: Never Tobacco comments: No one in household smokes. Smoker in childhood home. Vaping Use Vaping status: Never Used Substance Use Topics Alcohol use: Yes Comment: Rarely Drug use: No Review of Symptoms REVIEW OF SYSTEMS SEE HPI EXAM: BP 119/79 Pulse 86 Resp 16 Wt 82.1 kg (181 lb) LMP 01/07/2011 BMI 30.12 kg/m General Appearance: Well appearing, alert, in no acute distress, well-hydrated, well nourished.. Abdomen: Normal abdominal exam, Abdomen soft, non-tender. Bowel sounds normal. No masses, organomegaly. Health Maintenance List RSV Vaccine(1 - Risk 60-74 years 1-dose series) Never done Cervical Cancer Screening due on 08/24/2019 Mammogram Screening due on 08/17/2024 Covid-19 Vaccine( season) due on 05/11/2024 Depression Screening due on 12/27/2024 Anxiety Screening due on 12/27/2024 Hemoglobin/Hematocrit due on 03/09/2025 Annual PCP Team Chronic Disease Visit due on 03/16/2025 Serum Creatinine due on 04/05/2025 Diabetes Screening due on 03/09/2027 Colorectal Cancer Screening due on 12/23/2027 Lipid Screening due on 01/30/2029 DTaP,Tdap,Td Vaccine(4 - Td or Tdap) due on 03/01/2033 Bone Density Screening Completed Influenza Vaccine Completed Advance Directive Discussion Completed Hepatitis C Screening Completed Shingrix Vaccine Completed Pneumococcal Vaccine: 65+ Completed Data reviewed Latest Ref Rng 04/10/2024 GLUCOSE UA (POCT) Negative mg/dL Negative BILIRUBIN UA (POCT) Negative Negative KETONE UA (POCT) Negative mg/dL Negative SPECIFIC GRAVITY UA (POCT) 1.005 - 1.030 1.010 HEMOGLOBIN/BLOOD UA (POCT) Negative Small ! PH UA (POCT) 4.5 - 8.0 6.5 PROTEIN UA (POCT) Negative mg/dL Trace ! UROBILINOGEN UA (POCT) Normal E.U./dL 0.2 NITRITE UA (POCT) Negative Negative LEUKOCYTES UA (POCT) Negative Moderate ! COLOR UA (POCT) Yellow CLARITY UA (POCT) Clear ASSESSMENT/PLAN: 1. Urinary tract infection with hematuria, site unspecified - ICD9: 599.0, 599.70, ICD10: N39.0, R31.9 acute - UA positive for kelvin esterase, hematuria, and proteinuria - Send urine for culture - Begin treatment with Bactrim DS BID for 3 days - Patient education for prevention given - SULFAMETHOXAZOLE 400 MG-TRIMETHOPRIM 80 MG TABLET - UA DIP, URINE (POC) - URINE CULTURE Jonathan Monterroso APRN.EMPLOYMENT SERVICES DIRECTOR documented in this encounterAdena Regional Medical Center11-25-2024 Telephone encounter Note * Telephone Encounter - Dee Sanchez RN - 04/10/2024 12:50 PM EST Patient calling to say she saw Dr. Steve Nephrology @ [place]. He let patient know he was faxing UA results to PCP office so patient can be treated for UTI. Those results are in EPIC. UA was done on 04/05/24. Patient states she has had symptoms of burning with urination and urgency x 4 dayssince having stent removed on 04/06/24. Advised patient probably needs appointment. Scheduled with Jonathan Monterroso NP due to no appointments available in [facility]. Dee Sanchez RN [facility]11-25-2024 Miscellaneous Notes* Telephone Encounter - Dee Sanchez RN - 04/10/2024 12:50 PM EST Patient calling to say she saw Dr. Steve Nephrology @ [place]. He let patient know he was faxing UA results to PCP office so patient can be treated for UTI. Those results are in EPIC. UA was done on 04/05/24. Patient states she has had symptoms of burning with urination and urgency x 4 dayssince having stent removed on 04/06/24. Advised patient probably needs appointment. Scheduled with Jonathan Monterroso NP due to no appointments available in [facility]. Dee Sanchez RN documented in this encounterAdena Regional Medical Center11-22-2024 History of Present illness Narrative* Phong Blake MD - 04/07/2024 9:20 AM EST Cystoscopy and stent removal Procedure Note Pre-operative Diagnosis: Ureteral calculus Post-operative Diagnosis: Ureteral calculus Procedure Details The risks, benefits, complications, treatment options, and expected outcomes were discussed with the patient. The patient concurred with the proposed plan, giving informed consent. A female director biomedical engineering was present for the entire procedure. A proper time-out was performed. Cystoscopy was performed without incident. The patient was placed in the lithotomy position, prepped with Betadine, and draped in the usual sterile fashion. Lidocaine jelly was instilled into the urethra to effect local anesthesia. The sheathed digital flexible cystoscope was passed into the bladder without incident Findings: Urethra: normal without stenosis or evidence for urethral diverticulum Bladder: No tumors, diverticulae, stones, or mucosal abnormalities were seen Ureteral orifices: STENT REMOVED AND DISPOSED Specimens: None Complications: None. Patient tolerated the procedure well Plan: Continue Increased fluid intake. Followup with usual urologist at [facility] Phong Blake M.D. 04/07/2024 Lives in [facility]). Interstim, IC 04/07/2024: Stent removal 03/23/2024: Bilateral ULL (R. Lower pole - no stent ; L. Ureter - stent placed) 03/05/2024: CT: Bilateral hydro. 5 mm. L. UVJ stone 03/03/2024: Urology ([facility]): - Pt is s/p mirabegron, oxybutynin, interstim, botox 100 units, now botox 200 units with no improvement in OAB symptoms (had some improvement w/ interstim but didn't last long) 11/22/2023: R. ESWL ([facility]) 11/22/2023: KUB ([facility]): Couple of right-sided renal calculi measuring 8 mm and 10 mm in size. 5 x 28 mm tubular calcification within the left hemipelvis at the level of the ischial spine, concerning for left-sided distal ureter calculus. 04/05/2024: Creatinine: 2.05 / eGFR 26 (Dr. Steve, C.F. Nephrology) documented in this [facility]11-22-2024 NoteCystoscopy and stent removal Procedure Note Pre-operative Diagnosis: Ureteral calculus Post-operative Diagnosis: Ureteral calculus Procedure Details The risks, benefits, complications, treatment options, and expected outcomes were discussed with the patient. The patient concurred with the proposed plan, giving informed consent. A female director biomedical engineering was present for the entire procedure. A proper time-out was performed. Cystoscopy was performed without incident. The patient was placed in the lithotomy position, prepped with Betadine, and draped in the usual sterile fashion. Lidocaine jelly was instilled into the urethra to effect local anesthesia. The sheathed digital flexible cystoscope was passed into the bladder without incident Findings: Urethra: normal without stenosis or evidence for urethral diverticulum Bladder: No tumors, diverticulae, stones, or mucosal abnormalities were seen Ureteral orifices: STENT REMOVED AND DISPOSED Specimens: None Complications: None. Patient tolerated the procedure well Plan: Continue Increased fluid intake. Followup with usual urologist at [facility] Phong Blake M.D. 04/07/2024 Lives in [facility]). Interstim, IC 04/07/2024: Stent removal 03/23/2024: Bilateral ULL (R. Lower pole - no stent ; L. Ureter - stent placed) 03/05/2024: CT: Bilateral hydro. 5 mm. L. UVJ stone 03/03/2024: Urology ([facility]): - Pt is s/p mirabegron, oxybutynin, interstim, botox 100 units, now botox 200 units with no improvement in OAB symptoms (had some improvement w/ interstim but didn't last long) 11/22/2023: R. ESWL ([facility]) 11/22/2023: KUB ([facility]): Couple of right-sided renal calculi measuring 8 mm and 10 mm in size. 5 x 28 mm tubular calcification within the left hemipelvis at the level of the ischial spine, concerning for left-sided distal ureter calculus. 04/05/2024: Creatinine: 2.05 / eGFR 26 (Dr. Steve, C.F. Nephrology)[facility]11-18-2024 Telephone encounter Note* Telephone Encounter - Viri Cole - 04/03/2024 12:37 PM EST Name of caller: Eren Contact phone number: [phone] Relationship to Patient: patient Provider: Dr. Kayli Velasquez Practice: Neurology 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/Reason for Call: Patient is requesting ED notes and testing from 03/04/24 and 03/06/24 to be faxed to her neurologist at [phone]. Please advise. Best time of day caller can be reached: Any Patient advised that office/PCP has 24-48 business hours to return their call: [phone] Miscellaneous Notes* Telephone Encounter - Viri Cole - 04/03/2024 12:37 PM EST Name of caller: Eren Contact phone number: [phone] Relationship to Patient: patient Provider: Dr. Kayli Velasquez Practice: Neurology 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/Reason for Call: Patient is requesting ED notes and testing from 03/04/24 and 03/06/24 to be faxed to her neurologist at [phone]. Please advise. Best time of day caller can be reached: Any Patient advised that office/PCP has 24-48 business hours to return their call: Yes documented in this encounterSChildren's Hospital for [id number] Telephone encounter Note* Telephone Encounter - Geri Lewis MA - 03/27/2024 1:09 PM EST Spoke with Pt - Pt requests [facility]. Pt appt rescheduled to 04.07. @09[address] [facility] [address] Blake. Pt aware of appt d/t/l. [place] [id number] Miscellaneous Notes* Telephone Encounter - Geri Lewis MA - 03/27/2024 1:09 PM EST Spoke with Pt - Pt requests [facility]. Pt appt rescheduled to 04.07. @09[address] [facility] [address] Blake. Pt aware of appt d/t/l. * Telephone Encounter - Carlos Thorpe - 03/27/2024 12:32 PM EST Patient retuning call and states she was offered [place] location on the . Please call to reschedule. * Telephone Encounter - Jacqueline Hale - 03/24/2024 2:14 PM EST Name of Caller: Eren Contact Reason for Appointment: Patient called to verify procedure appointment. Patient asked if there was a closer off to where she lives. Please call patient back to advise. Office Name: Urology Medication Refills need, if any: N/A Medication Name: N/A documented in this encounterSChildren's Hospital for [id number] Telephone encounter Note* Telephone Encounter - Carlos Thorpe - 03/27/2024 12:32 PM EST Patient retuning call and states she was offered [place] location on the . Please call to reschedule. [id number] Telephone encounter Note* Telephone Encounter - Jacqueline Hale - 03/24/2024 2:14 PM EST Name of Caller: Eren Contact Reason for Appointment: Patient called to verify procedure appointment. Patient asked if there was a closer off to where she lives. Please call patient back to advise. Office Name: Urology Medication Refills need, if any: N/A Medication Name: N/A [facility] [id number] NotePatient: Eren Javier Merchant Procedure Summary Date: 03/23/24 Room / Location: [address] Operating Room Anesthesia Start: 1449 Anesthesia Stop: 1619 Procedures: CYSTOSCOPY AND PYELOGRAM (Urethra) BILATERAL URETEROSCOPY, HOLMIUM LASER LITHOTRIPSY (Bilateral: Urethra) BILATERAL URETERAL STENT CHANGE (Bilateral: Urethra) Diagnosis: Calculus of ureter Surgeons: Katherine Bowen MD Responsible Provider: Allyson Walker MD Anesthesia Type: general ASA Status: 2 Anesthesia Type: general Vitals Value Taken Time BP 114/85 03/23/24 1630 Temp 97 03/24/24 1234 Pulse 80 03/23/24 1635 Resp 16 03/24/24 1234 SpO2 100 % 03/23/24 1635 Anesthesia Post Evaluation Patient location during evaluation: PACU Patient participation: complete - patient participated Level of consciousness: awake and alert Pain management: satisfactory to patient Multimodal analgesia pain management approach Airway patency: patent Two or more strategies used to mitigate risk of obstructive sleep apnea Cardiovascular status: acceptable and hemodynamically stable Respiratory status: acceptable Hydration status: acceptable No notable events documented. MIPS #430 PONV Patient received an inhalational anesthetic (4554F) MIPS # 424 Perioperative Temperature Management Anesthesia time was 60 minutes or longer (4255F) MIPS #477 Multimodal Pain Management Not emergent case MIPS #404 Anesthesiology Smoking Abstinence The patient is not a current smoker (e.g. cigarette, cigar, pipe, e-cigarette/vaping/marijuana) If no stop here (XX404) I completed my handoff to the receiving clinician during which we: 1. Identified the patient 2. Identified the responsible provider 3. Reviewed the pertinent medical history 4. Discussed the surgical course 5. Reviewed intra-op anesthesia management and issues during anesthesia 6. Set expectations for post-procedure period 7. Allowed opportunity for questions and acknowledgement of understanding.[facility] [id number] NotePatient: Eren Merchant Procedure Summary Date: 03/23/24 Room / Location: [address] Operating Room Anesthesia Start: 1449 Anesthesia Stop: 1619 Procedures: CYSTOSCOPY AND PYELOGRAM (Urethra) BILATERAL URETEROSCOPY, HOLMIUM LASER LITHOTRIPSY (Bilateral: Urethra) BILATERAL URETERAL STENT CHANGE (Bilateral: Urethra) Diagnosis: Calculus of ureter Surgeons: Katherine Bowen MD Responsible Provider: Allyson Walker MD Anesthesia Type: general ASA Status: 2 Anesthesia Type: general Vitals Value Taken Time BP 114/85 03/23/24 1630 Temp 97 03/24/24 1234 Pulse 80 03/23/24 1635 Resp 16 03/24/24 1234 SpO2 100 % 03/23/24 1635 Anesthesia Post Evaluation Patient location during evaluation: PACU Patient participation: complete - patient participated Level of consciousness: awake and alert Pain management: satisfactory to patient Airway patency: patent Dental Injury: no Cardiovascular status: acceptable, blood pressure returned to baseline and hemodynamically stable Respiratory status: acceptable and spontaneous ventilation Hydration status: euvolemic Nausea/Vomiting: controlled No notable events documented. Patient can be discharged once all PACU criteria has been met.[facility]11-07-2024 Hospital Discharge instructions* Discharge Instructions* Katherine Bowen MD - 03/23/2024 5:18 PM EST Laser Lithotripsy These are general instructions for you to follow after your surgery. Your doctor or a member of hisor her staff will outline any additional or special instructions that pertain to you. What is a Laser Lithotripsy? A laser lithotripsy is a method for using lasers to remove stones that are located in the urinary tract. This could include stones in the bladder, kidneys, ureters, or urethra. A small flexible camera called a ureteroscope is inserted into the urethra and up the ureter until it reaches the locationof the kidney stone. The doctor can then use a laser to break up a kidney stone and a small basket to remove small stones or stone fragments. A ureteral stent is often left in place after the procedure to help with healing. What are the advantages of laser lithotripsy? Laser lithotripsy is a minimally invasive procedure, and does not involve any incisions. It has been shown to be effective no matter the size, location, and/ or hardness of the stone. It also reduces the risk of steinstrasse (where several stones fragments line up in the ureter and block urine flow). How long does surgery take? Surgery will take 1-2 hours to complete. Will I have to stay in the hospital? No. This is an outpatient procedure, so you should be able to go home the same day that the procedure is performed. Are there risks with a laser lithotripsy procedure? There are risks with any surgical procedure. Risks of laser lithotripsy in particular include pain, blood in the urine, difficulty urinating, injury to the bladder or ureters when removing the stone, and infection. General anesthesia also has the risk of breathing problems, heart attack and stroke in patients who are high risk. Before Surgery: - A packet of information will be sent to you. It contains helpful information, details about how to prepare for surgery, and where to arrive on the day of surgery. Maps and local hotel information are sent to persons from out of town. If you have questions or have not received this information, please call our office at . - All patients having surgery will need a physical completed to clear them medically for surgery. Pre-operative testing is completed approx. 1-2 weeks before your planned surgery. These tests will bedone either at your pre- operative day at [facility], [facility], or with your regular doctor. - Some patients may require additional testing such as a stress test or cardiac clearance. - At the time of your pre-operative visit the following tests may be completed: Blood work, an EKG,and/ or a Chest X-ray - The day before your surgery you will need to call the surgical scheduling office to confirm your arrival time. - Do NOT eat or drink anything after midnight the night before your surgery. Medications: - Your information packet will contain a list of medications that need to be stopped before surgery. - Do not take Aspirin, Motrin or Ibuprofen for 2 weeks before surgery. - Stop taking all herbal remedies 2 weeks before your surgery. - Please make certain that we know if you take medication that affected bleeding or is a blood thinner. Examples of these include Coumadin, Warfarin or Plavix. A safe plan will need to be made about how and when you take this medication near the time of your surgery. The Day of Surgery - Please report to the designated area at your confirmed arrival time. - Before you are taken to the operating room, you will change into a gown and have an IV started. - An anesthesiologist will come speak with you about the surgery and answer any questions that you may have. - Your family may stay with you in the pre-op area until you are taken to the operating room. Home Going Instructions: Activity: You are encouraged to walk every day, increasing the distance each day. You may go up anddown steps, but please rest when you are tired. - Do NOT drive for 2-3 weeks after surgery or until you are not taking pain medications. You may ride in a car or plane. Be sure to get up and walk every 1- 2 hours when traveling long distances. - Avoid strenuous activity for 2-4 weeks after surgery (running, jumping, lifting more than 10 lbs.) Diet and Fluid Intake: Eating a well balanced diet is important. If you were on a specific diet before your surgery, you should return to that diet. Otherwise, there are no diet restrictions after surgery. Do NOT drink alcoholic beverages while taking pain medications. Drink at least 8 glasses of fluid per day, preferably water. Bowel Management: Constipation sometimes occurs after surgery, especially when taking pain medication. Eating a well-balanced diet and maintaining a good fluid intake are often all that is necessary to return to you pre-surgical bowel regimen. It is important not to strain excessively when having a bowel movement for the first several weeks following your surgery. A stool softener such as Colace may be helpful. You can purchase stool softeners without a prescription at your local drug store. If a stool softener is not enough to relieve your constipation, you may try taking Milk of Magnesia. You may use over the counter medicine, such a Gas-X, if you experience gas pains after surgery. Ureteral Stent: Most people experience some discomfort with a stent in place. Common symptoms include back pain, urinary frequency and urgency. You may see some blood off and on in your urine, especially after you are active. While these symptoms are common with a stent, if you are having a lot of pain, please call our office to discuss your symptoms. Showering: You may shower when you get home from the hospital. Please avoid swimming, hot tubs and baths for 2-3 weeks after your procedure. Pain Medications: Your doctor will prescribe the appropriate pain medication for you. Take these pills only as directed and only if you need them. If you are experiencing mild discomfort, you may take Tylenol or Ibuprofen. NEVER mix alcohol with prescription pain medications. Pain medication may make you drowsy. Do not take pain medication when doing any activity that requires coordination, such as driving. Infection: Report the following warning signs of infection to your doctor immediately: A temperature of 101 degrees or greater Unable to urinate. Sudden onset of increased pain or tenderness Increased amount of blood in the urine, or passing large blood clots Miscellaneous It is normal for you to have minor discomfort after your surgery. However, if there are any significant changes in your condition--such as shortness of breath, difficulty breathing, or pain or unevenswelling in your legs--please go to the Emergency Room. 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 If your work involves strenuous activity, you may need more time before returning to work. If necessary, our office can provide a letter stating the date that you may return to work. Follow-up Appointments If you have a drain or ricki left in after you go home, you will have a follow-up appointment with Kirsten Rendon PA-C approx. 1 week after your surgery for drain and/ or staple removal. Follow-up appointments will be scheduled by our office. If you have any questions, please call . * Attachments The following attachments cannot be sent through Care Everywhere. * Ureteral Stent Discharge Instructions (Bahamian) documented in this [facility]11-07-2024 Miscellaneous Notes* Perioperative Nursing Note - Renea Leyva RN - 03/23/2024 4:55 PM EST Patient urinated mod amount blood-tinged urine ion bed mcgraw. Removed bed mcgraw and cleaned patient with periwipes. Patient requested to sergio to bathroom. Patient ambulated to bathroom and voided mod amount blood-tinged urine without difficulty. Patient denies dizziness or nausea. Patient's gown was soiled, so RN assisted patient with changing into her clothes while up to bathroom. * Perioperative Nursing Note - Renea Leyva RN - 03/23/2024 4:34 PM EST Took over care of patient for RN lunch break. Patient just placed on bed mcgraw per RN. * Op Note - Katherine Bowen MD - 03/23/2024 2:49 PM EST Images from the original note were not included. Katherine Bowen MD 03/23/2024 at 5:20 PM UROLOGY OPERATIVE REPORT PATIENT NAME: Eren Merchant DATE OF : 1960 TODAY'S DATE: 03/23/2024 PreOp Dx bilateral urerteral calculus PostOp Dx Same Operation : cystoscopy pyelogram ureteroscopy laser lithotripsy stent placement bilateral Surgeon Katherine Bowen MD Assist Denver Callaway EBL Minimal Drains 6fr X 24cmJJ on the left no stent placed on the right Dowd Specimen stone Condition To PACU Findings: Eren Merchant is a 63 y.o. female who presents with ureteral calculus . After having a discussion on treatment options, risks and benefits, the patient wishes to proceed forward with surgical intervention Patient was brought to the operating room. A thorough time out was performed and everyone present was in agreement. Patient was placed on OR table. Anesthesia and lines were maintained by the anesthesia team. Patient was placed in the dorsal lithotomy position. Prepped and draped in usual fashion. Pressure points were padded. A cystourethroscope was inserted through the urethra and the bladder was inspected. The stent was pulled to the meatus. A wire was placed under fluoroscopy. Right Diagnostic ureteroscopy was performed using the 6.9 Jordanian semirigid ureteroscope. The scope was advanced along the wire and the ureter was inspected in its entirety up to the renal pelvis. No stone was seen in the ureter. A 12/14 fr ureteral access sheath was advanced over the wire under fluoroscopy. A flexible ureteroscope was passed through the access sheath. The stone was visualized in the lower pole and laser lithotripsied using the holmium laser. All of the stone fragments were too small to basket and were easily passable. There was minimal edema and trauma to the ureter and therefore a stent was not placed. Left The 6.9fr semirigid ureteroscope was advanced alongside the wire. Care was taken to minimize injuryto the ureteral orifice. The stone was able to be visualized. It was laser lithotripsied into numerous small passable fragments. All of the larger stone fragments were removed with the stone basket. The ureter was reinspected and all the remaining fragments were small and easily passable. The stent was advanced over the wire through the cystoscope under fluoroscopic visualization. Once in position the wire was removed. A good curl was noted in the kidney and the bladder. The bladder was emptied and patient awoken from anesthesia. Katherine Bowen MD 03/23/24 5:20 PM * Perioperative Nursing Note - Kyrie Moreno RN - 03/23/2024 2:43 PM EST PRE-PROCEDURE ROUNDING COMPLETE. documented in this [facility]11-07-2024 Note* Perioperative Nursing Note - Renea Leyva RN - 03/23/2024 4:55 PM EST Patient urinated mod amount blood-tinged urine ion bed mcgraw. Removed bed mcgraw and cleaned patient with periwipes. Patient requested to sergio to bathroom. Patient ambulated to bathroom and voided mod amount blood-tinged urine without difficulty. Patient denies dizziness or nausea. Patient's gown was soiled, so RN assisted patient with changing into her clothes while up to bathroom. [facility] [id number] Note* Perioperative Nursing Note - Renea Leyva RN - 03/23/2024 4:55 PM EST Patient urinated mod amount blood-tinged urine ion bed mcgraw. Removed bed mcgraw and cleaned patient with periwipes. Patient requested to sergio to bathroom. Patient ambulated to bathroom and voided mod amount blood-tinged urine without difficulty. Patient denies dizziness or nausea. Patient's gown was soiled, so RN assisted patient with changing into her clothes while up to bathroom. [facility] [id number] Note* Perioperative Nursing Note - Renea Leyva RN - 03/23/2024 4:34 PM EST Took over care of patient for RN lunch break. Patient just placed on bed mcgraw per RN. [place] [id number] Note* Perioperative Nursing Note - Renea Leyva RN - 03/23/2024 4:34 PM EST Took over care of patient for RN lunch break. Patient just placed on bed mcgraw per RN. [facility]11-07-2024 NoteAirway Date/Time: 03/23/2024 2:55 PM Urgency: scheduled Airway not difficult General Information and Staff Patient location during procedure: Procedural Resident/KNIFE OPERATOR: Casi Burroughs APRN - KNIFE OPERATOR Performed: KNIFE OPERATOR Indications and Patient Condition Indications for airway management: anesthesia and airway protection Sedation level: Asleep Preoxygenated: yes Mask difficulty assessment: 1 - vent by mask Final Airway Details Final airway type: endotracheal airway Successful airway: ETT Cuffed: yes Successful intubation technique: direct laryngoscopy Endotracheal tube insertion site: oral Blade: Brett Blade size: #3 ETT size (mm): 7.0 Cormack-Lehane Classification: grade IIa - partial view of glottis Placement verified by: chest auscultation and capnometry Measured from: teeth ETT to teeth (cm): 21 Number of attempts at approach: [address] [place], [place] [id number] Note* Op Note - Katherine Bowen MD - 03/23/2024 2:49 PM EST Images from the original note were not included. Katherine Bowen MD 03/23/2024 at 5:20 PM UROLOGY OPERATIVE REPORT PATIENT NAME: Eren Merchant DATE OF : 1960 TODAY'S DATE: 03/23/2024 PreOp Dx bilateral urerteral calculus PostOp Dx Same Operation : cystoscopy pyelogram ureteroscopy laser lithotripsy stent placement bilateral Surgeon Katherine Bowen MD Assist Denver Callaway EBL Minimal Drains 6fr X 24cmJJ on the left no stent placed on the right Dowd Specimen stone Condition To PACU Findings: Eren Merchant is a 63 y.o. female who presents with ureteral calculus . After having a discussion on treatment options, risks and benefits, the patient wishes to proceed forward with surgical intervention Patient was brought to the operating room. A thorough time out was performed and everyone present was in agreement. Patient was placed on OR table. Anesthesia and lines were maintained by the anesthesia team. Patient was placed in the dorsal lithotomy position. Prepped and draped in usual fashion. Pressure points were padded. A cystourethroscope was inserted through the urethra and the bladder was inspected. The stent was pulled to the meatus. A wire was placed under fluoroscopy. Right Diagnostic ureteroscopy was performed using the 6.9 Jordanian semirigid ureteroscope. The scope was advanced along the wire and the ureter was inspected in its entirety up to the renal pelvis. No stone was seen in the ureter. A 12/14 fr ureteral access sheath was advanced over the wire under fluoroscopy. A flexible ureteroscope was passed through the access sheath. The stone was visualized in the lower pole and laser lithotripsied using the holmium laser. All of the stone fragments were too small to basket and were easily passable. There was minimal edema and trauma to the ureter and therefore a stent was not placed. Left The 6.9fr semirigid ureteroscope was advanced alongside the wire. Care was taken to minimize injuryto the ureteral orifice. The stone was able to be visualized. It was laser lithotripsied into numerous small passable fragments. All of the larger stone fragments were removed with the stone basket. The ureter was reinspected and all the remaining fragments were small and easily passable. The stent was advanced over the wire through the cystoscope under fluoroscopic visualization. Once in position the wire was removed. A good curl was noted in the kidney and the bladder. The bladder was emptied and patient awoken from anesthesia. Katherine Bowen MD 03/23/24 5:20 PM [facility] [id number] Note* Op Note - Katherine Bowen MD - 03/23/2024 2:49 PM EST Images from the original note were not included. Katherine Bowen MD 03/23/2024 at 5:20 PM UROLOGY OPERATIVE REPORT PATIENT NAME: Eren Merchant DATE OF : 1960 TODAY'S DATE: 03/23/2024 PreOp Dx bilateral urerteral calculus PostOp Dx Same Operation : cystoscopy pyelogram ureteroscopy laser lithotripsy stent placement bilateral Surgeon Katherine Bowen MD Assist [place] Callaway EBL Minimal Drains 6fr X 24cmJJ on the left no stent placed on the right Dowd Specimen stone Condition To PACU Findings: Eren Merchant is a 63 y.o. female who presents with ureteral calculus . After having a discussion on treatment options, risks and benefits, the patient wishes to proceed forward with surgical intervention Patient was brought to the operating room. A thorough time out was performed and everyone present was in agreement. Patient was placed on OR table. Anesthesia and lines were maintained by the anesthesia team. Patient was placed in the dorsal lithotomy position. Prepped and draped in usual fashion. Pressure points were padded. A cystourethroscope was inserted through the urethra and the bladder was inspected. The stent was pulled to the meatus. A wire was placed under fluoroscopy. Right Diagnostic ureteroscopy was performed using the 6.9 Jordanian semirigid ureteroscope. The scope was advanced along the wire and the ureter was inspected in its entirety up to the renal pelvis. No stone was seen in the ureter. A 12/14 fr ureteral access sheath was advanced over the wire under fluoroscopy. A flexible ureteroscope was passed through the access sheath. The stone was visualized in the lower pole and laser lithotripsied using the holmium laser. All of the stone fragments were too small to basket and were easily passable. There was minimal edema and trauma to the ureter and therefore a stent was not placed. Left The 6.9fr semirigid ureteroscope was advanced alongside the wire. Care was taken to minimize injuryto the ureteral orifice. The stone was able to be visualized. It was laser lithotripsied into numerous small passable fragments. All of the larger stone fragments were removed with the stone basket. The ureter was reinspected and all the remaining fragments were small and easily passable. The stent was advanced over the wire through the cystoscope under fluoroscopic visualization. Once in position the wire was removed. A good curl was noted in the kidney and the bladder. The bladder was emptied and patient awoken from anesthesia. Katherine Bowen MD 03/23/24 5:20 PM [facility] [id number] Note* Perioperative Nursing Note - Kyrie Moreno RN - 03/23/2024 2:43 PM EST PRE-PROCEDURE ROUNDING COMPLETE. [facility] [id number] Note* Perioperative Nursing Note - Kyrie Moreno RN - 03/23/2024 2:43 PM EST PRE-PROCEDURE ROUNDING COMPLETE. [facility] [id number] NotePRE-PROCEDURE ROUNDING COMPLETE.[facility]11-07-2024 Attending History and physical note* Katherine Bowen MD - 03/23/2024 1:30 PM EST Images from the original note were not included. H&P Update Patient's History and Physical from 03/04/24 was reviewed. Patient examined. There has been no change. Impression: ureteral calculus Plan: : cystoscopy pyelogram ureteroscopy laser lithotripsy stent placement bilateral : Electronically signed by Katherine Bowen MD 03/23/24 2:32 PM Source Note - Maurilio Groves MD - 03/04/2024 2:37 PM EDT Attending History and Physical Admit Date: 03/04/2024 PCP: Priyanka Smith CHIEF COMPLAINT: OSH transfer Reason for Admission: Eren YVONNE Henry 1960 is at [facility] ED. Pt has been in ED at [facility] for pyelonephritis with possible neoplastic process. Hospitalist at [facility] unable to care for pt at [facility]. Pt cannot have contrast due to MANJIT (creat 3.1). [facility] reached out to [facility] yesterday but still don't have a bed. Dr Jaguar Mckeon spoke with Dr. Noel Contreras here at [facility] and pt accepted to [facility] by Dr Contreras. History Obtained From: Medical records and patient HISTORY OF PRESENT ILLNESS: Eren is a 63 y.o. 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 Report was not received by this admitter, and pts medical needs for transfer were largely presumed based off documented clinical course from outside ED. Pt was only sent with paper records without image disk, images not able to be obtained electronically on day of admission. Ultimately pt presented to [facility] for chief complaint of seizure-like activity. Reported she had 2 episodes of syncope, one occurring at home and one at her urologists office. At home, she reports that she was standing and talking on the phone with her dad, and the next thing she remembers is lying down on the ground. Does not recall preceding symptoms. The second episode, which occurred at her urologists outpatient practice, she reports that bystanders witnessed seizure-like activity at the office, stating she had full body shaking without control of her body; denies LOC, tongue biting, urinary incontinence during this episode. At outside ED pt was tachycardic to 120s, EKG with sinus tachy. CBC with leukocytosis to 19.5, thrombocytosis to 455. BMP with sodium 130, Cr 3.1 (recent Cr from 01/2024 1.75). CXR was without pneumonia, effusion, cardiomegaly, or PTX; did demonstrate L basilar atelectasis. D-dimer elevated at 3.44,CTA chest ordered and was negative for PE, however it demonstrated nodules within R lobe of thyroidgland necessitating OP ultrasound. Also demonstrated circumferential wall thickening of mid and distal esophagus concerning for esophagitis, but unable to exclude neoplastic process. UA concerning for infection, pt started on rocephin and culture sent out. CT AP without contrast ordered to r/o infected urolithiasis - this demonstrated BL hydroureteronephrosis associated with filling defect withinR proximal ureter with concern for possible neoplastic process, BL ureteral wall thickening suggestive of urethritis, and bladder wall thickening with adjacent stranding c/w cystitis. Given concern for malignancy, urology at [facility] ED recommended transfer and medical admission for further workup. Prior to her transfer, ED started pt on fludrocortisone 0.1mg PO BID. Upon assessment at [facility], pt reiterated much of what was documented above. Specifically, she denies any sort of preceding symptoms with her syncopal episodes. With her most recent episode at the outpatient urologists clinic, she says she walked in to the waiting room (denied standing from seated position) and up to the receptionists window to check in; all of a sudden she felt both her arms shaking, followe dby feeling of generalized weakness, and the next thing she knew she was on the ground. Denied chest pain, SOB, palpitations, lightheadedness, vision changes, LOC. She does report she was late to her appointment, therefore it is possible that this episode was precipitated by stress. Pt denies current weakness, numbness, tingling, f/c, chest pain, palpitations, SOB, abd pain, n/v, dysuria, d/c. Past Medical History: Past Medical History: Diagnosis Date Arthritis Cancer (CMS/HCC) (HCC) Disease of thyroid gland Past Surgical History: Past Surgical History: Procedure Laterality Date BACK SURGERY CHOLECYSTECTOMY COLON SURGERY THYMECTOMY stated per patient, for cancer removal Social History: Social History Socioeconomic History Marital status: Spouse name: Not on file Number of children: Not on file Years of education: Not on file Highest education level: Not on file Occupational History Not on file Tobacco Use Smoking status: Not on file Smokeless tobacco: Not on file Substance and Sexual Activity Alcohol use: Not on file Drug use: Not on file Sexual activity: Not on file Other Topics Concern Not on file Social History Narrative Not on file Social Determinants of Health Financial Resource Strain: High Risk (03/26/2020) Received from [facility] Overall Financial Resource Strain (CARDIA) Difficulty of Paying Living Expenses: Very hard Food Insecurity: No Food Insecurity (03/26/2020) Received from [facility] Hunger Vital Sign Worried About Running Out of Food in the Last Year: Never true Ran Out of Food in the Last Year: Never true Transportation Needs: No Transportation Needs (03/26/2020) Received from [facility] PRAPARE - Transportation Lack of Transportation (Medical): No Lack of Transportation (Non-Medical): No Physical Activity: Inactive (06/22/2023) Received from [facility] Exercise Vital Sign Days of Exercise per Week: 0 days Minutes of Exercise per Session: 0 min Stress: No Stress Concern Present (09/03/2019) Received from [facility] [place] [employer] - Occupational Stress Questionnaire Feeling of Stress : Not at all Social Connections: Unknown (03/01/2020) Received from [facility] Social Connection and Isolation Panel [NHANES] Frequency of Communication with Friends and Family: Three times a week Frequency of Social Gatherings with Friends and Family: Three times a week Attends Sikh Services: Not on file Active Member of Clubs or Organizations: Not on file Attends Club or Organization Meetings: Not on file Marital Status: Not on file Intimate Partner Violence: Not on file Housing Stability: Not on file Family History: No family history on file. Medications Prior to Admission: No current facility-administered medications on file prior to encounter. No current outpatient medications on file prior to encounter. Allergies: Allergies Allergen Reactions Azithromycin Diarrhea Severe diarrhea Seasonal Other Stuffy/runny nose REVIEW OF SYSTEMS: Negative apart from above Vitals: BP 139/92 (BP Location: Left arm, Patient Position: Sitting) Pulse 105 Temp 36.3 C (97.4 F) (Tympanic) Resp 16 Ht 5' 5 (1.651 m) Wt 178 lb (80.7 kg) SpO2 93% BMI 29.62 kg/m BMI Classification: Overweight (BMI 25.0-29.9) Pulse Ox: SpO2 Av % Min: 93 % Max: 93 % Supplemental O2: PHYSICAL EXAM: Physical Exam Vitals reviewed. Constitutional: General: She is not in acute distress. Appearance: Normal appearance. She is not ill-appearing or diaphoretic. HENT: Mouth/Throat: Mouth: Mucous membranes are moist. Eyes: Extraocular Movements: Extraocular movements intact. Cardiovascular: Rate and Rhythm: Regular rhythm. Tachycardia present. Pulses: Normal pulses. Heart sounds: Normal heart sounds. Pulmonary: Effort: No respiratory distress. Breath sounds: Normal breath sounds. No stridor. No wheezing or rhonchi. Abdominal: General: Abdomen is flat. Palpations: Abdomen is soft. Musculoskeletal: Right lower leg: No edema. Left lower leg: No edema. Skin: General: Skin is warm and dry. Comments: Vitiligo Neurological: Mental Status: She is alert and oriented to person, place, and time. Comments: Mildly tremulous Psychiatric: Mood and Affect: Mood normal. Behavior: Behavior normal. DATA: CBC: No results for input(s): WBC, RBC, HGB, HCT, MCV, RDW, PLT in the last 72 hours. BMP:No results for input(s): NA, K, CL, CO2, BUN, CREATININE, GLUCOSE, CALCIUM, ANIONGAP in the last 72 hours. LIVER PROFILE:No results for input(s): AST, ALT, BILITOT, ALKPHOS, PROT in the last 72 hours. No lab exists for component: LABALBU PT/INR: No results for input(s): PROTIME, INR in the last 72 hours. CARDIAC ENZYMES: No results for input(s): TROPONINI in the last 72 hours. Procalcitonin: No results found for: PROCAL Urine Culture: No results found for this or any previous visit. COVID-19 PCR: No results for input(s): COVID19 in the last 72 hours. I reviewed: [x] laboratory results [x] radiographic results At the time of today's encounter. Pt was advised of the results. Data: (CAT1) Reviewed 3 or more notes from different specialty or health system (each=1). (CAT1) Ordered 3 or more new labs and/or studies (each=1, panels count as 1). (LOW: 2x CAT1 or independent historian MOD: 3x CAT1 or 1x CAT3 EXTENSIVE: 3x CAT1 and 1x CAT3) Assessment Discussed management with the ED provider and agree with hospitalization. Acute, acute on chronic, unstable/uncontrolled chronic problems/diagnoses: #Complicated UTI with BL hydroureteronephrosis with c/f pyelonephritis #Filling defect within R proximal ureter #MANJIT on CKD3a -CT AP w/o contrast showed low-attenuation 8x3 mm intraluminal filling defect within proximal R ureter. -BL hydroureteronephrosis associated with filling defect within R proximal ureter with concern for possible neoplastic process, BL ureteral wall thickening suggestive of urethritis, and bladder wall thickening with adjacent stranding c/w cystitis. Plan: -Urology at outside ED may have been reluctant to perform PCNT placement in presence of MANJIT, however not clear per transfer notes. -On admission, pt was discussed with [facility] urology whom recommended repeat imaging if unable to obtain image disks. -Ordered renal ultrasound for now, will consult urology to weigh in on intervention and further workup for ureteral filling defect. #Lightheadedness #Recurrent falls #?seizure episode -Recent OP office visit: Had a fall on Wednesday morning, just fell. No dizziness at that time. Bp lowin office today. Taking Propranolol 20 mg BID for tremor. Episodes are random, usually will be standing when she gets dizzy. No chest pain, palitations, or edema. Hit right ribs on Wednesday, hit a rocking chair, no LOC. PCP thought it was related to hypotension 2/2 propranolol. -Urology office visit 03/03 documents she had witnessed fall vs seizure in office waiting room, recommended ED evaluation. -03/03: CTH, C-spine without acute process. ED started pt on fludrocortisone 0.1mg PO BID. Plan: -Orthostats -Monitor tele -Neuro consult -Echo ordered -Consider AI workup in setting of other autoimmune diseases #Dysphagia #Esophageal dysmotility #Circumferential wall thickening of mid and distal esophagus on CT - concerning for esophagitis, but unable to exclude neoplastic process -was on reglan, stopped recently by neuro 12/2023 due to tardive dyskinesia. Plan: -GI consulted Stable chronic problems affecting care, new non-acute diagnoses: #Hyponatremia -Pt started on NaCl 1g TID by ED 03/04 #Chronic interstitial cystitis -Follows with OP urology. On 03/03 documented the following: recommend titrating down and off of amitryptiline while she is undergoing neuro/falls/seizure workup. Elavil is helpful kimber at night, but given large increase in falls recently safest to be off of it. Can discuss once acute issue resolvesif safe to restart. Taper discussed as 50mg 4-5d, then 25mg 4- 5 days then stop. #ILD/NSIP -On current regimen of cellcept, prednisone 5mg daily. Plan: -Cont home prednisone. Held cellcept given infection concern. #Prediabetes -A1c 5.9 01/31/24, trend BMP #Hypothyroidism -TSH 1.490 12/16/23 #Tremors #Hx tardive dyskinesia, medication induced #Hx Drug-induced parkinsonism -Neuro 12/2023: -Involuntary mouth and tongue movements consistent with tardive dyskinesia, likely secondary to long-term use of metoclopramide since 2018. No history of antipsychotic use. Movements are noticeable but not currently causing significant functional impairment. -Exhibits bradykinesia, rigidity, and tremor, which may be indicative of drug- induced parkinsonism due to metoclopramide use. Differential diagnosis includes primary Parkinson's disease, but symptomsare symmetric, affecting both sides equally, which is more consistent with drug-induced etiology Plan As a result of the above findings & factors, the following mgmt was pursued: - as above - am labs, replace lytes prn - PT/OT/CM/SW - delirium precautions: increase activity and limit nighttime disturbances - DVT prophylaxis: heparin and encourage ambulation Complexity: Undiagnosed new problem with uncertain prognosis (MOD). Acute illness with systemic symptoms (MOD). Risk: Admission to hospital-level care was considered or occurred (HIGH). Prescription drug/IVF/colloid was initiated, discontinued, adjusted; or reviewed with decision to maintain current orders (MOD). Advance Directive: Full Code Anticipated Discharge - Date - TBD - Location - Likely home - Pending the following - clinical course Total time spent (which include face to face and non face to face encounters) : 120 minutes. Extended Emergency Contact Information Primary Emergency Contact: Shelton Merchant Mobile Relation: Son Preferred language: [employer] [employer]ed [employer] Photographer needed? No Secondary Emergency Contact: Michael Merchant Mobile Relation: Significant Other Preferred language: [place] [employer] Photographer needed? No [employer] Eren Merchant : 1960 Primary Care Physician: Priyanka Smith The patient and/or family/surrogate voluntarily agreed to participate in ACP services. Patient s cognitive capacity: AOX4 Code Status: [X] [FULL CODE - Continue all advanced life support: CPR,intubation,invasive procedures] [_] [DNR-CCA - DO NOT do CPR, intubation] [_] [DNR-SCRIPT EDITOR - Comfort care only] [_] DNR form [was/was not] signed Maurilio Groves MD Division of Hospitalist Medicine [facility] [employer] Phone: [phone]) 510-252211-07-2024 History and physical note* Katherine Bowen MD - 03/23/2024 1:30 PM EST Images from the original note were not included. H&P Update Patient's History and Physical from 03/04/24 was reviewed. Patient examined. There has been no change. Impression: ureteral calculus Plan: : cystoscopy pyelogram ureteroscopy laser lithotripsy stent placement bilateral : Electronically signed by Katherine Bowen MD 03/23/24 2:32 PM Source Note - Maurilio Groves MD - 03/04/2024 2:37 PM EDT Attending History and Physical Admit Date: 03/04/2024 PCP: Priyanka Smith CHIEF COMPLAINT: OSH transfer Reason for Admission: Eren Henry, 1960 is at [facility] ED. Pt has been in ED at [facility] for pyelonephritis with possible neoplastic process. Hospitalist at [facility] unable to care for pt at [facility]. Pt cannot have contrast due to MANJIT (creat 3.1). [facility] reached out to [facility] yesterday but still don't have a bed. Dr Jaguar Mckeon spoke with Dr. Noel Contreras here at [facility] and pt accepted to [facility] by Dr Contreras. History Obtained From: Medical records and patient HISTORY OF PRESENT ILLNESS: Eren is a 63 y.o. 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 Report was not received by this admitter, and pts medical needs for transfer were largely presumed based off documented clinical course from outside ED. Pt was only sent with paper records without image disk, images not able to be obtained electronically on day of admission. Ultimately pt presented to [facility] for chief complaint of seizure-like activity. Reported she had 2 episodes of syncope, one occurring at home and one at her urologists office. At home, she reports that she was standing and talking on the phone with her dad, and the next thing she remembers is lying down on the ground. Does not recall preceding symptoms. The second episode, which occurred at her urologists outpatient practice, she reports that bystanders witnessed seizure-like activity at the office, stating she had full body shaking without control of her body; denies LOC, tongue biting, urinary incontinence during this episode. At outside ED pt was tachycardic to 120s, EKG with sinus tachy. CBC with leukocytosis to 19.5, thrombocytosis to 455. BMP with sodium 130, Cr 3.1 (recent Cr from 01/2024 1.75). CXR was without pneumonia, effusion, cardiomegaly, or PTX; did demonstrate L basilar atelectasis. D-dimer elevated at 3.44,CTA chest ordered and was negative for PE, however it demonstrated nodules within R lobe of thyroidgland necessitating OP ultrasound. Also demonstrated circumferential wall thickening of mid and distal esophagus concerning for esophagitis, but unable to exclude neoplastic process. UA concerning for infection, pt started on rocephin and culture sent out. CT AP without contrast ordered to r/o infected urolithiasis - this demonstrated BL hydroureteronephrosis associated with filling defect withinR proximal ureter with concern for possible neoplastic process, BL ureteral wall thickening suggestive of urethritis, and bladder wall thickening with adjacent stranding c/w cystitis. Given concern for malignancy, urology at [facility] ED recommended transfer and medical admission for further workup. Prior to her transfer, ED started pt on fludrocortisone 0.1mg PO BID. Upon assessment at [facility], pt reiterated much of what was documented above. Specifically, she denies any sort of preceding symptoms with her syncopal episodes. With her most recent episode at the outpatient urologists clinic, she says she walked in to the waiting room (denied standing from seated position) and up to the receptionists window to check in; all of a sudden she felt both her arms shaking, followe dby feeling of generalized weakness, and the next thing she knew she was on the ground. Denied chest pain, SOB, palpitations, lightheadedness, vision changes, LOC. She does report she was late to her appointment, therefore it is possible that this episode was precipitated by stress. Pt denies current weakness, numbness, tingling, f/c, chest pain, palpitations, SOB, abd pain, n/v, dysuria, d/c. Past Medical History: Past Medical History: Diagnosis Date Arthritis Cancer (CMS/HCC) (HCC) Disease of thyroid gland Past Surgical History: Past Surgical History: Procedure Laterality Date BACK SURGERY CHOLECYSTECTOMY COLON SURGERY THYMECTOMY stated per patient, for cancer removal Social History: Social History Socioeconomic History Marital status: Spouse name: Not on file Number of children: Not on file Years of education: Not on file Highest education level: Not on file Occupational History Not on file Tobacco Use Smoking status: Not on file Smokeless tobacco: Not on file Substance and Sexual Activity Alcohol use: Not on file Drug use: Not on file Sexual activity: Not on file Other Topics Concern Not on file Social History Narrative Not on file Social Determinants of Health Financial Resource Strain: High Risk (03/26/2020) Received from [facility] Overall Financial Resource Strain (CARDIA) Difficulty of Paying Living Expenses: Very hard Food Insecurity: No Food Insecurity (03/26/2020) Received from [facility] Hunger Vital Sign Worried About Running Out of Food in the Last Year: Never true Ran Out of Food in the Last Year: Never true Transportation Needs: No Transportation Needs (03/26/2020) Received from [facility] PRAPARE - Transportation Lack of Transportation (Medical): No Lack of Transportation (Non-Medical): No Physical Activity: Inactive (06/22/2023) Received from [facility] Exercise Vital Sign Days of Exercise per Week: 0 days Minutes of Exercise per Session: 0 min Stress: No Stress Concern Present (09/03/2019) Received from [facility] [place] [employer] - Occupational Stress Questionnaire Feeling of Stress : Not at all Social Connections: Unknown (03/01/2020) Received from [facility] Social Connection and Isolation Panel [NHANES] Frequency of Communication with Friends and Family: Three times a week Frequency of Social Gatherings with Friends and Family: Three times a week Attends Sikh Services: Not on file Active Member of Clubs or Organizations: Not on file Attends Club or Organization Meetings: Not on file Marital Status: Not on file Intimate Partner Violence: Not on file Housing Stability: Not on file Family History: No family history on file. Medications Prior to Admission: No current facility-administered medications on file prior to encounter. No current outpatient medications on file prior to encounter. Allergies: Allergies Allergen Reactions Azithromycin Diarrhea Severe diarrhea Seasonal Other Stuffy/runny nose REVIEW OF SYSTEMS: Negative apart from above Vitals: BP 139/92 (BP Location: Left arm, Patient Position: Sitting) Pulse 105 Temp 36.3 C (97.4 F) (Tympanic) Resp 16 Ht 5' 5 (1.651 m) Wt 178 lb (80.7 kg) SpO2 93% BMI 29.62 kg/m BMI Classification: Overweight (BMI 25.0-29.9) Pulse Ox: SpO2 Av % Min: 93 % Max: 93 % Supplemental O2: PHYSICAL EXAM: Physical Exam Vitals reviewed. Constitutional: General: She is not in acute distress. Appearance: Normal appearance. She is not ill-appearing or diaphoretic. HENT: Mouth/Throat: Mouth: Mucous membranes are moist. Eyes: Extraocular Movements: Extraocular movements intact. Cardiovascular: Rate and Rhythm: Regular rhythm. Tachycardia present. Pulses: Normal pulses. Heart sounds: Normal heart sounds. Pulmonary: Effort: No respiratory distress. Breath sounds: Normal breath sounds. No stridor. No wheezing or rhonchi. Abdominal: General: Abdomen is flat. Palpations: Abdomen is soft. Musculoskeletal: Right lower leg: No edema. Left lower leg: No edema. Skin: General: Skin is warm and dry. Comments: Vitiligo Neurological: Mental Status: She is alert and oriented to person, place, and time. Comments: Mildly tremulous Psychiatric: Mood and Affect: Mood normal. Behavior: Behavior normal. DATA: CBC: No results for input(s): WBC, RBC, HGB, HCT, MCV, RDW, PLT in the last 72 hours. BMP:No results for input(s): NA, K, CL, CO2, BUN, CREATININE, GLUCOSE, CALCIUM, ANIONGAP in the last 72 hours. LIVER PROFILE:No results for input(s): AST, ALT, BILITOT, ALKPHOS, PROT in the last 72 hours. No lab exists for component: LABALBU PT/INR: No results for input(s): PROTIME, INR in the last 72 hours. CARDIAC ENZYMES: No results for input(s): TROPONINI in the last 72 hours. Procalcitonin: No results found for: PROCAL Urine Culture: No results found for this or any previous visit. COVID-19 PCR: No results for input(s): COVID19 in the last 72 hours. I reviewed: [x] laboratory results [x] radiographic results At the time of today's encounter. Pt was advised of the results. Data: (CAT1) Reviewed 3 or more notes from different specialty or health system (each=1). (CAT1) Ordered 3 or more new labs and/or studies (each=1, panels count as 1). (LOW: 2x CAT1 or independent historian MOD: 3x CAT1 or 1x CAT3 EXTENSIVE: 3x CAT1 and 1x CAT3) Assessment Discussed management with the ED provider and agree with hospitalization. Acute, acute on chronic, unstable/uncontrolled chronic problems/diagnoses: #Complicated UTI with BL hydroureteronephrosis with c/f pyelonephritis #Filling defect within R proximal ureter #MANJIT on CKD3a -CT AP w/o contrast showed low-attenuation 8x3 mm intraluminal filling defect within proximal R ureter. -BL hydroureteronephrosis associated with filling defect within R proximal ureter with concern for possible neoplastic process, BL ureteral wall thickening suggestive of urethritis, and bladder wall thickening with adjacent stranding c/w cystitis. Plan: -Urology at outside ED may have been reluctant to perform PCNT placement in presence of MANJIT, however not clear per transfer notes. -On admission, pt was discussed with [facility] urology whom recommended repeat imaging if unable to obtain image disks. -Ordered renal ultrasound for now, will consult urology to weigh in on intervention and further workup for ureteral filling defect. #Lightheadedness #Recurrent falls #?seizure episode -Recent OP office visit: Had a fall on Wednesday morning, just fell. No dizziness at that time. Bp lowin office today. Taking Propranolol 20 mg BID for tremor. Episodes are random, usually will be standing when she gets dizzy. No chest pain, palitations, or edema. Hit right ribs on Wednesday, hit a rocking chair, no LOC. PCP thought it was related to hypotension 2/2 propranolol. -Urology office visit 03/03 documents she had witnessed fall vs seizure in office waiting room, recommended ED evaluation. -03/03: CTH, C-spine without acute process. ED started pt on fludrocortisone 0.1mg PO BID. Plan: -Orthostats -Monitor tele -Neuro consult -Echo ordered -Consider AI workup in setting of other autoimmune diseases #Dysphagia #Esophageal dysmotility #Circumferential wall thickening of mid and distal esophagus on CT - concerning for esophagitis, but unable to exclude neoplastic process -was on reglan, stopped recently by neuro 12/2023 due to tardive dyskinesia. Plan: -GI consulted Stable chronic problems affecting care, new non-acute diagnoses: #Hyponatremia -Pt started on NaCl 1g TID by ED 03/04 #Chronic interstitial cystitis -Follows with OP urology. On 03/03 documented the following: recommend titrating down and off of amitryptiline while she is undergoing neuro/falls/seizure workup. Elavil is helpful kimber at night, but given large increase in falls recently safest to be off of it. Can discuss once acute issue resolvesif safe to restart. Taper discussed as 50mg 4-5d, then 25mg 4- 5 days then stop. #ILD/NSIP -On current regimen of cellcept, prednisone 5mg daily. Plan: -Cont home prednisone. Held cellcept given infection concern. #Prediabetes -A1c 5.9 01/31/24, trend BMP #Hypothyroidism -TSH 1.490 12/16/23 #Tremors #Hx tardive dyskinesia, medication induced #Hx Drug-induced parkinsonism -Neuro 12/2023: -Involuntary mouth and tongue movements consistent with tardive dyskinesia, likely secondary to long-term use of metoclopramide since 2018. No history of antipsychotic use. Movements are noticeable but not currently causing significant functional impairment. -Exhibits bradykinesia, rigidity, and tremor, which may be indicative of drug- induced parkinsonism due to metoclopramide use. Differential diagnosis includes primary Parkinson's disease, but symptomsare symmetric, affecting both sides equally, which is more consistent with drug-induced etiology Plan As a result of the above findings & factors, the following mgmt was pursued: - as above - am labs, replace lytes prn - PT/OT/CM/SW - delirium precautions: increase activity and limit nighttime disturbances - DVT prophylaxis: heparin and encourage ambulation Complexity: Undiagnosed new problem with uncertain prognosis (MOD). Acute illness with systemic symptoms (MOD). Risk: Admission to hospital-level care was considered or occurred (HIGH). Prescription drug/IVF/colloid was initiated, discontinued, adjusted; or reviewed with decision to maintain current orders (MOD). Advance Directive: Full Code Anticipated Discharge - Date - TBD - Location - Likely home - Pending the following - clinical course Total time spent (which include face to face and non face to face encounters) : 120 minutes. Extended Emergency Contact Information Primary Emergency Contact: Shelton Merchant Mobile Relation: Son Preferred language: Bahamian Printed Circuit Photographer needed? No Secondary Emergency Contact: Michael Merchant Mobile Relation: Significant Other Preferred language: Bahamian Print[employer] Photographer needed? No [employer] Eren Merchant : 1960 Primary Care Physician: Priyanka Smith The patient and/or family/surrogate voluntarily agreed to participate in ACP services. Patient s cognitive capacity: AOX4 Code Status: [X] [FULL CODE - Continue all advanced life support: CPR,intubation,invasive procedures] [_] [DNR-CCA - DO NOT do CPR, intubation] [_] [DNR-SCRIPT EDITOR - Comfort care only] [_] DNR form [was/was not] signed Maurilio Groves MD Division of Hospitalist Medicine [facility] documented in this [facility]11-07-2024 NoteH&P Update Patient's History and Physical from 03/04/24 was reviewed. Patient examined. There has been no change. Impression: ureteral calculus Plan: : cystoscopy pyelogram ureteroscopy laser lithotripsy stent placement bilateral : Electronically signed by Katherine Bowen MD 03/23/24 2:32 [facility]11-07-2024 Telephone encounter Note* Telephone Encounter - Jessika De Jesus - 03/23/2024 11:20 AM EST 1st attempt left message to return call to arrange consult to Endo [facility]11-07-2024 Miscellaneous Notes* Telephone Encounter - Jessika De Jesus - 03/23/2024 11:20 AM EST 1st attempt left message to return call to arrange consult to Endo * Telephone Encounter - Tess Persaud MA - 03/23/2024 10:28 AM EST Referral filed. Return call to Dr. Steve's office notifying them that PCP has placed referral. Routing chart to Scheduling to contact pt to help assist is in setting up appt with pt. Refer to Endo appt. Tess Persaud MA * Telephone Encounter - Priyanka Smith MD - 03/23/2024 10:18 AM EST OK for Endo referral as requested Priyanka Smith MD * Telephone Encounter - Maren Boogie LPN - 03/22/2024 2:[address] Hansen's office Nephrology calling, they saw patient today. 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 If PCP does not want to they can we just need to let them know. Please advise. documented in this encounterAdena [facility]11-07-2024 Telephone encounter Note * Telephone Encounter - Tess Persaud MA - 03/23/2024 10:28 AM EST Referral filed. Return call to Dr. Steve's office notifying them that PCP has placed referral. Routing chart to Scheduling to contact pt to help assist is in setting up appt with pt. Refer to Endo appt. Tess Persaud MA [facility]11-07-2024 Telephone encounter Note* Telephone Encounter - Priyanka Smith MD - 03/23/2024 10:18 AM EST OK for Endo referral as requested Priyanka Smith MD [facility]11-06-2024 NotePatient: Eren Merchant Procedure Information Date/Time: 03/23/24 1330 Procedures: CYSTOSCOPY AND PYELOGRAM (Urethra) - 60 MIN BILATERAL URETEROSCOPY, HOLMIUM LASER LITHOTRIPSY (Bilateral: Urethra) BILATERAL URETERAL STENT CHANGE (Bilateral: Urethra) Location: [address] Operating Room Surgeons: Katherine Bowen MD Relevant Problems Endo (+) Acquired hypothyroidism /Renal (+) Hydronephrosis with urinary obstruction due to ureteral calculus (+) Stage 3a chronic kidney disease (HCC) Past Medical History: Past Medical History: No date: Arthritis No date: Cancer (CMS/HCC) (HCC) No date: Disease of thyroid gland Past Surgical History: Past Surgical History: No date: BACK SURGERY No date: CHOLECYSTECTOMY No date: COLON SURGERY No date: THYMECTOMY Comment: stated per patient, for cancer removal Social History: TOBACCO: reports that she has never smoked. She has never used smokeless tobacco. ETOH: reports no history of alcohol use. Social History Substance and Sexual Activity Drug Use Never Family History: No family history on file. Screening: Postmenopausal Clinical information reviewed: Tobacco Allergies Meds Med Hx Surg Hx Fam Hx Soc Hx Physical Exam Airway Mallampati: II TM distance: >3 FB Neck ROM: full Comments: Per chart reviewMouth Open: normalendotracheal tube not in place Cardiovascular Dental Comments: Per chart review dentition normal Pulmonary Abdominal Anesthesia Plan patient is NPO appropriate Any family history or previous problems with anesthesia no ASA 2 general Any family history or previous problems with anesthesia no The patient is not a current smoker. Anesthetic plan and risks discussed with patient (son). ERAS Type Short ERAS JOSE ANGEL Screening Labs: Lab Results Component Value Date WBC 13.8 (H) 03/09/2024 HGB 10.0 (L) 03/09/2024 HCT 31.4 (L) 03/09/2024 MCV 79.5 03/09/2024 PLT 401 03/09/2024 Lab Results Component Value Date NA 132 (L) 03/09/2024 K 3.6 03/09/2024 CL 102 03/09/2024 CO2 26 03/09/2024 BUN 40 (H) 03/09/2024 CREATININE 1.77 (H) 03/09/2024 GLUCOSE 124 (H) 03/09/2024 CALCIUM 9.4 03/09/2024 PROT 7.7 03/04/2024 ALKPHOS 96 03/04/2024 AST 27 03/04/2024 ALT 17 03/04/2024 EGFR 31.6 (L) 03/09/2024 Pain Score: Scheduled No echocardiogram results found for the past 14 days 03/04/24 ECG 12-LEAD 03/05/2024 5:08 PM (Final) Impression Sinus tachycardia Low voltage, precordial leads Borderline T abnormalities, anterior leads Electronically Signed On 03-05-2024 17:08:28 EDT by Fatemeh Watkins Signed by: Fatemeh Watkins on 03/05/2024 5:08 PM Equipment Requests: [facility] Telephone encounter Note* Telephone Encounter - Maren Boogie LPN - 03/22/2024 2:[address] Hansen's office Nephrology calling, they saw patient today. 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 If PCP does not want to they can we just need to let them know. Please advise. [facility]11-05-2024 Telephone encounter Note* Telephone Encounter - Carmita Avila - 03/21/2024 1:46 PM EST Benefit verification forms initiated via [employer] to be sent to [employer]. [facility]11-05-2024 Miscellaneous Notes* Telephone Encounter - Carmita Avila - 03/21/2024 1:46 PM EST Benefit verification forms initiated via [employer] to be sent to [employer]. documented in this encounterAdena [facility] Center10-31-2024 History of Present illness Narrative* Priyanak Smith MD - 03/16/2024 2:20 PM EDT 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 Patient presents with: Hospital F/U: HPI Eren Merchant is a 63 year old female who presents here today for Hospital Discharge Follow up.. She was talking on the phone and next thing she knew she was on the floor. She hit a rocking chair when she feel 02/26 and still has some pain to the right rib. She then had another episode while at the hospital causing her to have seizure like reactions. Sent to ER who sent her to [facility] due to kidney infection. Pt here for hospital follow up. Was admitted to [facility] on 03/04/24 through 03/09/24 for kidney infection and low BP. She didn't realize she had an infection, just had back pain. She has stents placed and will get those removed next week. She has been checking her BP at home and readings running 100/70 range. Has only had one episode of feeling light headed since keysha marlon discharged home. She feels the stomach is doing ok but she is on medication. She is to get an endoscopy again in 8 weeks. She is following with gastro Dr. Cota in [place]. Has appt with Perioperative Tech. Has a few more appts to make. She had appt with Neuro who wants her tested for Parkinson's. She is taking Florinef 0.1 mg daily to help bring up the BP. Was advised to stop propranolol and Sanctura as it was dropping the BP too much. She is taking Carafate 1 mg as needed, only need it one time. She was treated with Bactrim DS for 6 days and Diflucan 200 mg daily. Below copied from Care Everywhere: Admission Date: 03/04/2024 2:14 PM Today's Date: 03/05/2024 Reason for consultation: bilateral hydronephrosis Chief complaint: UTI, MANJIT HISTORY OF PRESENT ILLNESS: The patient is a 63 y.o. female with history of CKD3a, hypothyroidism, overactive bladder s/p Interstim, thymoma presents with bilateral hydronephrosis on renal US. She presented with seizure like activity and syncope. She has an MANJIT and concern for UTI. She is being treated with rocephin. She is complaining of frequency of urination but this has been going on for several years. She had an interstim placed by an outside urologist but this has not helped these symptoms. She states that previous PVRs at the urologist office have been low. PVR this AM was 20 ml's. She is not having flank pain. 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: Seizure like activity History Of Present Illness: 63 y.o. 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 Patient has had two recent episodes which prompted her transfer to [facility] for further workup. On 02/26/24, patient was talking to her dad on the phone. The next thing she remembers is lying on the ground. No warning. She believes she had LOC but does not know duration. Estimates less than one minute. She denies denies tongue bite or b/b incontinence. No clear post-ictal symptoms. Her BP's run low attimes and she is on propranolol. PCP attributed to possible hypotension. She had another episode while at the urologist's office on 03/03/24. She walked up to call center receptionist desk, all of a sudden both arms started shaking, she felt weak, and next thing she knew she was on the ground. Witnesses stated patient had full body shaking. Unknown duration. Patient denies LOC, tongue bite, or b/b incontinence. She remembers the entire episode. Patient has no history of seizures. She does transient episodes of dizziness (light-headed, no vertigo), sometimes associated with worsening tremor and falls. Seizure Risk Factors: 1. Head trauma (no); 2. PHYSICIAN OFFICE NURSE infections (no); 3. Family history of seizures (yes, brother); 4. Developmental delay (no); 5. Febrile seizures (no); 6. PHYSICIAN OFFICE NURSE tumors (no); 7. PHYSICIAN OFFICE NURSE vascular disease (no); 8. Significant medical history: CKD, ILD, current complicated UTI; 9. and early development: normal and early development Patient presented to [facility] and was found to be tachycardic. She had a WBC of 20, plts 455, sodium 130 and MANJIT (Scr 3.1). CXR with L basilar atelectasis. D Dimer elevated at 3.44, CTA chestnegative for PE. CT Head negative for acute abn. UA concerning for infection and patient was started on empiric rocephin. CT A/P with b/l hydroureteronephrosis, urethritis, and cystitis. There was also concern for possible ureteral malignancy and for this concern [employer] [employer] urology recommended transfer to [facility]. As far as neurologic history: Patient was seen by outpatient neurology, Dr. Roberts, on 01/13/24 for tremor, tardive dyskinesia, and drug induced PD (reglan). Patient reported 1.5 years of b/l hand shaking/tremors and abnormal tongue movements. She was prescribed propranolol for tremors by her PCP which helped some (mostly with abnormal mouth movements). The plan at that time was to wean off reglan and then reassess for improvement in PD symptoms. Since of this week per propranolol was stopped for concern of hypotension. IMPRESSION/RECOMMENDATIONS: 63 yr old female who is on immunosuppression admitted with UTI and sepsis. Consult called for incidental finding of esophageal thickening on imaging. She does have issues with swallowing which have worsen after Reglan was stopped per patient. On reviewing her chart, she has been treated for rbad multiple times , her EGD in 2020 showed brad. She also had manometry in 2020 which was consistent with ineffective esophageal motility. Her symptoms and clinical picture is suggestive of dysmotility, gastroesophageal reflux disease or brad esophagitis. She states her GI doctor has moved and she has no right of way supervisor. Usually we ll treat for brad esophagitis empirically however with no recent EGD and concerning CT findings which is not available for review, needs further investigation. Her current acute issue is sepsis however, once her hemodynamics are improved, can perform an EGD to rule out any advanced lesion given the imaging findings. If negative, recommend she establishes with a local GI in [place] for ongoing care for dysmotility. Will follow the clinical course. No EGD planned for tomorrow. [facility] Past medical history, appointments, medications, allergies reviewed. 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 predniSONE (DELTASONE) 5 mg tablet take 1 tablet by mouth once daily. (Patient not taking: Reportedon 03/14/2024) amitriptyline (ELAVIL) 50 mg tablet Take 1 tablet by mouth daily at bedtime. (Patient not taking: Reported on 03/14/2024) estradiol (ESTRACE) 0.01 % (0.1 mg/gram) vaginal cream Use 1 g vaginally two times a week. biotin 5 mg tab Take 5 mg by mouth once daily. propranolol (INDERAL) 20 mg tablet Take 1 tablet by mouth two times a day. (Patient not taking: Reported on 03/14/2024) trospium (SANCTURA) 20 mg tablet Take 1 tablet by mouth two times a day. (Patient not taking: Reported on 01/12/2024) levothyroxine (SYNTHROID) 100 mcg tablet Take 1 [...] mouth once daily. No current facility-administered medications on file prior to visit. Social History Social History Tobacco Use Smoking status: Never Passive exposure: Never Smokeless tobacco: Never Tobacco comments: No one in household smokes. Smoker in childhood home. Vaping Use Vaping status: Never Used Substance Use Topics Alcohol use: Yes Comment: Rarely Drug use: No EXAM: LMP 01/07/2011 General Appearance: Well appearing, alert, in no acute distress, well-hydrated, well nourished. andOverweight. Lungs: Lungs clear to auscultation. No wheezing, rhonchi, rales.. Heart: RRR without murmur, gallop, or rubs. No ectopy. Ribs: tenderness on palpation to the right side Health Maintenance List RSV Vaccine(1 - Risk 60-74 years 1-dose series) Never done Cervical Cancer Screening due on 08/24/2019 Influenza Vaccine(1) due on 01/16/2024 Covid-19 Vaccine(2023- season) due on 01/16/2024 Mammogram Screening due on 08/17/2024 HIV Screening due on 12/27/2024 Depression Screening due on 12/27/2024 Anxiety Screening due on 12/27/2024 Annual PCP Team Chronic Disease Visit due on 03/01/2025 Serum Creatinine due on 03/09/2025 Hemoglobin/Hematocrit due on 03/09/2025 Diabetes Screening due on 03/09/2027 Colorectal Cancer Screening due on 12/23/2027 Lipid Screening due on 01/30/2029 DTaP,Tdap,Td Vaccine(4 - Td or Tdap) due on 03/01/2033 Bone Density Screening Completed Advance Directive Discussion Completed Hepatitis C Screening Completed Shingrix Vaccine Completed Pneumococcal Vaccine: 65+ Completed Data reviewed Care Everywhere ASSESSMENT/PLAN: 1. Hospital discharge follow-up - ICD9: V67.59, ICD10: Z09 (primary diagnosis) Continue current medications. 2. Need for vaccination - ICD9: V05.9, ICD10: Z23 - INFLUENZA VACCINE, PRSV FREE, AGE 65+ YR, HIGH DOSE, TRIVALENT (FLUZONE HIGH-DOSE) - [employer] COVID-19 VACCINE AGE 12+ YR (COMIRNATY) 3. Kidney infection - ICD9: 590.9, ICD10: N15.9 Follow with Urology as planned 4. Orthostatic hypotension - ICD9: 458.0, ICD10: I95.1 Stay off propanolol, continue florinef 5. Acquired hypothyroidism - ICD9: 244.9, ICD10: E03.9 6. ILD (interstitial lung disease) (HCC) - ICD9: 515, ICD10: J84.9 Continue current medications. Follow up as scheduled. I agree with the 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, ROS, and Past Histories independently gathered by the clinical lab support technician and the remaining scribed note accurately describes my personal service to the patient. Medical Decision Making: Problems: Moderate: New problem with uncertain prognosis and 2+ stable chronic illnesses Data: Unique source(s) for external note(s) reviewed: 1 Risk: Moderate: Drug management Medical Decision Making Level: 4 - Moderate Priyanka Smith MD The documentation for this note was completed by Susana Bhardwaj MA acting as scribe for Priyanka Smith MD. March 16, 2024 2:30 PM. Susana Bhardwaj MA documented in this encounterAdena [facility] Center10-31-2024 NoteWhite [facility]10-31-2024 Telephone encounter Note* Telephone Encounter - Batool Saleem - 03/16/2024 10:07 AM EDT Lvm for Pt letting her know if she still has questions to call our office. [facility] [phone] Miscellaneous Notes* Telephone Encounter - Batool Saleem - 03/16/2024 10:07 AM EDT Lvm for Pt letting her know if she still has questions to call our office. * Telephone Encounter - Wills Xiang - 03/15/2024 1:50 PM EDT Name of caller: Eren Contact phone number: [phone] Relationship to Patient: patient Provider: Clarice Practice: Urology 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/Reason for Call: Pt has an upcoming procedure scheduled with Clarice on 03/23/24. Pt has not received a phone call to answer to go over procedure, time, address, eating or drinking. I was able to give time and address but additional questions were not able to give. Can someone please reach out to patient to advise Please and thank you Best time of day caller can be reached: AM Patient advised that office/PCP has 24-48 business hours to return their call: N/A documented in this encounterSChildren's Hospital for [phone] Instructions* Patient Instructions* Gemma Roberts APRN.CNP - 03/16/2024 10:04 AM EDT Images from the original note were not included. It was a pleasure to see you today. We addressed the following diagnoses: Parkinsonism, unspecified parkinsonism type (hcc) (primary encounter diagnosis) Dyskinesia, tardive My recommendations are as follows: 03/16/2024 Visit: Parkinsonism/Tremor: Continue monitoring I am ordering a skin biopsy to hopefully differentiate whether this is Parkinson's disease or drug induced (information below)parkinsonism Exercise as able Tardive dyskinesia: Continue to monitor Other: Please call and follow up with your job hand regarding your prednisone being stopped while in the hospital Movement Disorders Medication Schedule: Medications Return in about 2 months (around 05/16/2024). If there are any concerns before your next visit, please call or you can send a message through [employer]. You can also now schedule and select appointments through [employer]. Gemma Roberts APRN.SAMIR documented in this encounterAdena Regional Medical Center10-31-2024 NoteWhite Hospital10-31-2024 History of Present illness Narrative* Gemma Roberts APRN.CNP - 03/16/2024 9:08 AM EDT [facility] - FOLLOW UP EVALUATION Priyanka Smith MD [address] [facility] [address] Dear Priyanka Smith MD: I had the pleasure of seeing Ms. Merchant for follow-up today. As you know she is a 63 year old right-handed female with a history of tremor since 2021. She is seen with her significant other, Michael. Subjective Previous Plan-01/13/2024 Visit: # Tremor Bilateral hand tremor present [...] secondary to long-term use of metoclopramide since 2018. No history of antipsychotic use. Movements are noticeable but not currently causing significant functional impairment. - Educated patient on the potential for increased dyskinetic movements following metoclopramide discontinuation. - Consider initiation of VMAT2 inhibitors such as valbenazine or deutetrabenazine if dyskinesia worsens post-discontinuation. # Drug-induced parkinsonism (HCC) Exhibits bradykinesia, rigidity, and tremor, which may be indicative of drug- induced parkinsonism due to metoclopramide use. Differential diagnosis [...] which they may be eligible? Somewhat important Interval History: Tremor is a ittle worse since being off the propranolol. Eating, drinking, and writing are affected. These were not as affected on the propranolol, but she had to go off of it due to orthostatic hypotension and falls. She has not had any falls since being off of it. She is still having tongue movements. These are worse off the Reglan (off since 01/12) and not any better. Movement Disorders Medications Schedule - as of the start of the visit: Medications AM PM Other Movement Disorder Prior Therapies Propranolol Cannot take Topamax and Zonisamide due to kidney stones Questionnaires: In addition, the following areas that may be affected by abnormal involuntary movements were evaluated: Daily activities Difficulties with eating: Yes (slight) Difficulties in dressin (none) Difficulties with hygiene activities: 0 (none) Difficulties with handwriting: Yes (slight) Difficulties with doing hobbies and other activities: Difficulties turning in bed: Yes (slight) Difficulties getting out of bed, car or chair: Yes (slight) Tremors/Gait/Balance Shaking or tremors: Yes (mild) Walking and balance problems: Yes (slight) Number of falls in the Last Month: 2 Gait freezin (none) Autonomic/Pain Lightheadeness on standing: Yes (moderate) Urinary problems: Yes (moderate) Constipation problems: Yes (slight) Pain and other sensations: Yes (severe) Speech/Swallowing Speech problems: 0 (none) Droolin (none) Chewing and swallowing problems: Yes (slight) She has known issues with her esophagus (esophageal dysmotility) Sleep/Fatigue Sleep problems: Yes (mild) Daytime sleepiness: Yes (mild) Fatigue: Yes (mild) Mood/Behavior Depression: Anxiety: YOVANY-7 Total Score: 0 usually representing no significant (0-4) anxiety. Finally, [...] sleep behavior disorder: No Restless Legs Syndrome: Yes Leg swelling: No Impaired sense of smell: No Cognition: Cognitive impairment: no MoCA Cognitive assessment: Hallucinations and delusions: no Apathy: no Impulse control disorder: No Palliative Concerns: Caregiver burden: Spiritual concerns: Advanced directives on file: Palliative services: Therapy and Exercise: Last PT Date: Not for several years Last OT Date: Last ST Date: Exercises Regularly: No ALLERGIES Allergen Reactions Erythromycin Diarrhea Hay Fever [Seasonal* Zyrtec [Cetirizine * Itching Current Outpatient Medications Medication Sig sucralfate (CARAFATE) 1 gram tablet Take 1 g by mouth. fludrocortisone (FLORINEF) 0.1 mg tablet Take 0.1 mg by mouth. fluconazole (DIFLUCAN) 200 mg tablet Take 200 mg by mouth. ondansetron (ZOFRAN) 4 mg tablet Take 1 tablet by mouth every 8 hours as needed for nausea/vomiting. estradiol (ESTRACE) 0.01 % (0.1 mg/gram) vaginal cream Use 1 g vaginally two times a week. biotin 5 mg tab Take 5 mg by mouth once daily. levothyroxine (SYNTHROID) 100 [...] Take 1 capsule by mouth once daily. melatonin 12 mg tab Take 2 tablets by mouth daily at bedtime. No current facility-administered medications for this visit. Objective Vital Signs: BP 110/74 (BP Site: Left Arm, BP Position: Sitting, BP Cuff Size: Regular Adult) Pulse 78 Ht 165.1 cm (5' 5) Wt 83.9 kg (184 lb 15.5 oz) LMP 01/07/2011 SpO2 98% BMI 30.78 kg/m Orthostatic Vitals: None for this encounter Weight: 83.9 kg (184 lb 15.5 oz) Height: 165.1 cm (5' 5) Patient's last menstrual period was 01/07/2011. Body mass index is 30.78 kg/m . Movement Disorders Scales Performed: MDS-UPDRS Motor subscale condition of exam Medication Off/On/Naiive Drug Naiive Time of UPDRS 0936 Time of Last Medication Last Medication Taken DBS Right N/A DBS Left N/A MDS-UPDRS Motor subscale scores Speech 0-Normal. No speech problems. Facial Expression 0-Normal. Normal facial expression. Rigidity Neck 0-Normal. No rigidity. Rigidity Right Upper Extremity 0-Normal. No rigidity. Rigidity Left Upper Extremity 1-Slight. Rigidity only detected with activation maneuver. Rigidity Right Lower Extremity 0-Normal. No rigidity. Rigidity Left Lower Extremity 1-Slight. Rigidity only detected with activation maneuver. Finger Taps Right 0-Normal. No problems. ` Finger Taps Left 1-Slight. a) the regular rhythm is broken with one or two interruptions or hesitations of the tapping movement, b) slight slowing, c) the amplitude decrements near the end of the 10 taps. Hand Movements Right 0-Normal. No problem. Hand Movements Left 1-Slight. a) the regular [...] decrements near the end of the sequence. (She hurt her shoulder with her pain) Arm Movements Left 1-Slight. a) the regular rhythm is broken with one or two interruptions or hesitations of the movement, b) slight slowing, c) the amplitude decrements near the end of the sequence. Toe Taps Right 0-Normal. No problem. Toe Taps Left 0-Normal. No problem. Leg Agility Right 0-Normal. No problems. Leg Agility Left 1-Slight. a) the regular rhythm is broken with one or two interruptions or hesitations of the movement, b) slight slowing, c) the amplitude decrements near the end of the task. Arise From Chair 0-Normal. No problems. Able to arise quickly without hesitation. Gait 1-Slight. Independent walking with minor gait impairment. (She has bilateral absent armswing) Gait Freezing 0-Normal. No freezing. Posture Stability 0-Normal. No problems: recovers with one or two steps. (deferred) Posture 1-Slight. Not quite erect, but posture could be normal for older person. Body Bradykinesia 1-Slight. Slight global slowness and poverty of spontaneous movements. Postural Tremor Hand Right 1-Slight. Tremor is present but less than 1cm in amplitude. Postural Tremor Hand Left 1-Slight. Tremor is present but less than 1cm in amplitude. Kinetic Tremor Right 1-Slight. Tremor is present but less than 1cm in amplitude. Kinetic Tremor Left 1-Slight. Tremor is present but less than 1cm in amplitude. Rest Tremor Amplitude Right Upper Extremity 0-Normal. No tremor. Rest Tremor Amplitude Left Upper Extremity 1-Slight. < 1 cm in maximal amplitude. Rest Tremor Amplitude Right Lower Extremity 0-Normal. No tremor. Rest Tremor Amplitude Left Lower Extremity 0-Normal. No tremor. Rest Tremor Amplitude Lip/Jaw 0-Normal. No tremor. Rest Tremor Constancy 1-Slight. Tremor at rest is present < 25% of the entire examination period. MDS-UPDRS Motor subscale totals Left Total 9 Right Total 3 Midline Total 3 Tremor Total / 10 6 PIGD Total / 3 1 Overall Total 16 % Change Compared to Last Filed Total -33.33 Afbj-Bnckcl-Eigla Tremor Scale Medication OFF/ON Drug Naiive Time of Assessment 0936 Time of Last Medication Last Medication Taken DBS_Right N/A DBS_Left N/A Face Tremor At Rest: 0 - None. Tongue Tremor At Rest: 0 - None. Posture Holdin - None. Voice Tremor Action and Intention: 0 - None. Head Tremor At Rest: 0 - None. Posture Holdin - None. RUE Tremor At Rest: 1 - Slight. May be intermittent. Posture Holdin - Slight. May be intermittent. Action and Intention: 1 - Slight. May be intermittent. LUE Tremor At Rest: 0 - None. Posture Holdin - Slight. May be intermittent. Action and Intention: 1 - Slight. May be intermittent. Trunk Tremor At Rest: 0 - None. Posture Holdin - None. RLE Tremor At Rest: 0 - None. Posture Holdin - None. Action and Intention: 0 - None. LLE Tremor At Rest: 0 - None. Posture Holdin - None Action and Intention: 0 - None. Tremor Exam Subscore: 5 Drawing and writing samples are scanned in at the bottom of this office visit note. Assessment and Plan: Assessment Ms. Merchant is a right-handed 63 year old year old female with left > right resting tremor, rigidity and bradykinesia consistent with parkinsonism and involuntary tongue movement consistent with tardive dyskinesia. The parkinsonism may be drug-induced or unmasked Idiopathic Parkinson's disease. She does not have a family history of tremor or Parkinson's disease. Though she did have to go off the propranolol due to orthostatic hypotension and falls, it was helpful for both the mouth movements and tremor and these have worsened off the propranolol. Looking at other medications used for action tremor, Topamax and Zonisamide cannot be used due to a history of (and current) kidney stones. She is not interested in medication for tardive like movements in her mouth at this time but she did note they are worse off the Reglan and not better. Lastly, we discussed drug induced parkinsonism vs Parkinson's disease as she does still have parkinsonism symptoms off of it. She is interested in getting a skin biopsy done and an order will be placed. The following are the current problems noted and addressed during this visit: Parkinsonism, unspecified parkinsonism type (hcc) (primary encounter diagnosis) Dyskinesia, tardive Plan 03/16/2024 Visit: Parkinsonism/Tremor: Continue monitoring I am ordering a skin biopsy to hopefully differentiate whether this is Parkinson's disease or drug induced parkinsonism Exercise as able Tardive dyskinesia: Continue to monitor Other: Please call and follow up with your job hand regarding your prednisone being stopped while in the hospital Updated Movement Disorders Medication Schedule: Medications Level of service : 10158 (40-68 min). Time spent 57 min on the day of service, which included preparing to see the patient, [id number] patient care, completing clinical documentation, obtaining and/or reviewing separately obtained history, performing a medically appropriate examination, counseling and educating the patient/family/caregiver, and ordering medications, tests, or procedures. Gemma Roberts APRN.SAMIR documented in this encounterA[facility] Telephone encounter Note * Telephone Encounter - Elma Otoole - 03/15/2024 1:50 PM EDT Name of caller: Eren Contact phone number: [phone] Relationship to Patient: patient Provider: Clarice Practice: Urology 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/Reason for Call: Pt has an upcoming procedure scheduled with Clarice on 03/23/24. Pt has not received a phone call to answer to go over procedure, time, address, eating or drinking. I was able to give time and address but additional questions were not able to give. Can someone please reach out to patient to advise Please and thank you Best time of day caller can be reached: AM Patient advised that office/PCP has 24-48 business hours to return their call: N[facility]A [id number] Telephone encounter Note* Telephone Encounter - Geri Wong MA - 03/10/2024 9:28 AM EDT I called and spoke with patient. She would prefer to establish with GI near her house. She stated they recommended Dr Cota - she will call his office today and contact us to let us know who she makes an appointment with and we will send records at that time. [id number] Miscellaneous Notes* Telephone Encounter - Geri Wong MA - 03/10/2024 9:28 AM EDT I called and spoke with patient. She would prefer to establish with GI near her house. She stated they recommended Dr Cota - she will call his office today and contact us to let us know who she makes an appointment with and we will send records at that time. * Telephone Encounter - Cecilia Barney PA-C - 03/07/2024 10:24 AM EDT Patient evaluated inpatient, needs repeat EGD in 8 weeks. Not established, patient lives in [place], please call and see if she would like to follow up with us and if not send records to her preferred follow up physician. documented in this encounterSChildren's Hospital for [id number] NoteDischarge Summary Eren Merchant : 1960 ADMIT DATE: 03/04/2024 DISCHARGE DATE: 03/09/2024 PRIMARY CARE PHYSICIAN: Priyanka Smith VISIT STATUS: Admission CODE STATUS: Full Code DISCHARGE DIAGNOSES: Principal Problem: Hydronephrosis with urinary obstruction due to ureteral calculus Active Problems: Esophageal dysmotility HOSPITAL COURSE: Eren is a 63 y.o. 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 Urology placed b/l ureteral stent 03/05. CT with incidentally esophageal thickening. GI has evaluated, status post EGD, shows severe candidiasis esophagitis with no bleeding, recommends to change PPI to IV 40 mg twice daily for now, consider Diflucan, repeat upper endoscopy in 8 weeks, discussed via secure chat Neurology following, EEG normal, MRI brain negative, MRA head/neck shows moderate tortuosity of upper ICA's with S shaped close, otherwise no acute abnormality, echo shows ejection fraction 60%, no AED unless patient with clinical seizure activity, signed off Urine culture from [employer] on 03/05 shows Proteus mirabilis Margaret Count 80,000-100,000 Proteus mirabilis: REACTION Ampicillin Islt MELVIN <=2 Ampicillin+Sulbac Islt MELVIN <=2 S ceFAZolin Islt MELVIN <=4 S Cefepime Islt MELVIN <=0.12 S cefTRIAXone Islt MELVIN <=0.25 S Ciprofloxacin Islt MELVIN <=0.25 S Gentamicin Islt MELVIN <=1 S levoFLOXacin Islt MELVIN <=0.12 S Nitrofurantoin Islt MELVIN 128 R Pip+Tazo Islt MELVIN <=4 S Tobramycin Islt MELVIN <=1 S TMP SMX Islt MELVIN <=20 S Nephrology following Patient will be discharged home in stable condition with oral antibiotics Interval History: No acute overnight changes Patient is seen and examined Patient is comfortably resting in her bed without in any acute distress, eating lunch, denies any new acute complaints Family is at bedside Sodium 132, creatinine 1.77, improving, WBC 13.8, stable Case and plan of care discussed with patient and bedside nurse. All questions answered Adult diet Regular 24HR INTAKE/OUTPUT: Intake/Output Summary (Last 24 hours) at 03/09/2024 0744 Last data filed at 03/08/2024 1055 Gross per 24 hour Intake 2088.5 ml Output -- Net 2088.5 ml Past Medical History: Medical History Past Medical History: Diagnosis Date Arthritis Cancer (CMS/HCC) (HCC) Disease of thyroid gland LABS: CBC: Recent Labs 03/07/24 0140 03/08/24 0531 03/09/24 0242 WBC 19.0* 13.0* 13.8* RBC 4.98 4.30 3.95 HGB 12.9 11.1* 10.0* HCT 40.2 34.0* 31.4* MCV 80.7 79.1 79.5 RDW 15.4* 15.4* 15.3* PLT 548* 453* 401 BMP: Recent Labs 03/07/24 0140 03/08/24 0531 03/09/24 0242 NA 133* 130* 132* K 4.0 3.7 3.6 CL 105 103 102 CO2 15* 22 26 BUN 55* 54* 40* CREATININE 2.35* 2.12* 1.77* GLUCOSE 117* 102* 124* CALCIUM 10.6* 10.0 9.4 ANIONGAP 13 6 4 LIVER PROFILE: No results for input(s): AST, ALT, BILITOT, ALKPHOS, PROT in the last 72 hours. No lab exists for component: LABALBU PT/INR: No results for input(s): PROTIME, INR in the last 72 hours. CARDIAC ENZYMES: No results for input(s): TROPONINI in the last 72 hours. Procalcitonin: No results found for: PROCAL COVID-19 PCR: No results for input(s): COVID19 in the last 72 hours. Objective: Vitals: BP 103/74 Pulse 87 Temp 36 ?C (96.8 ?F) (Temporal) Resp 18 Ht 5' 5 (1.651 m) Wt 178 lb (80.7 kg) SpO2 96% BMI 29.62 kg/m? Pulse Ox: SpO2 Av.2 % Min: 95 % Max: 100 % Supplemental O2: Physical Exam HENT: Head: Normocephalic. Nose: Nose normal. Mouth/Throat: Mouth: Mucous membranes are moist. Eyes: Extraocular Movements: Extraocular movements intact. Conjunctiva/sclera: Conjunctivae normal. Cardiovascular: Rate and Rhythm: Regular rhythm. Tachycardia present. Pulmonary: Effort: Pulmonary effort is normal. Breath sounds: Normal breath sounds. Abdominal: Palpations: Abdomen is soft. Musculoskeletal: General: Normal range of motion. Cervical back: Normal range of motion. Skin: General: Skin is warm. Neurological: General: No focal deficit present. Mental Status: She is alert and oriented to person, place, and time. Comments: tremor Psychiatric: Mood and Affect: Mood normal. Behavior: Behavior normal. Medications: Scheduled PRN Scheduled Meds amitriptyline, 50 mg, Oral, Nightly [Held by provider] aspirin, 81 mg, Oral, Daily Calcium Carb-Cholecalciferol, 1 tablet, Oral, BID cefTRIAXone, 2,000 mg, IntraVENous, q24h fluconazole, 200 mg, Oral, Daily fludrocortisone, 0.1 mg, Oral, BID heparin, 5,000 Units, SubCUTAneous, 3 times per day influenza, 0.5 mL, IntraMUSCular, Once l (more content not included)...[facility]10-24-2024 Hospital course Narrative* Jesse Do MD - 03/09/2024 4:45 PM EDT Discharge Summary Eren Merchant : 1960 ADMIT DATE: 03/04/2024 DISCHARGE DATE: 03/09/2024 PRIMARY CARE PHYSICIAN: Priyanka Smith VISIT STATUS: Admission CODE STATUS: Full Code DISCHARGE DIAGNOSES: Principal Problem: Hydronephrosis with urinary obstruction due to ureteral calculus Active Problems: Esophageal dysmotility HOSPITAL COURSE: Eren is a 63 y.o. 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 Urology placed b/l ureteral stent 03/05. CT with incidentally esophageal thickening. GI has evaluated, status post EGD, shows severe candidiasis esophagitis with no bleeding, recommends to change PPI to IV 40 mg twice daily for now, consider Diflucan, repeat upper endoscopy in 8 weeks, discussed via secure chat Neurology following, EEG normal, MRI brain negative, MRA head/neck shows moderate tortuosity of upper ICA's with S shaped close, otherwise no acute abnormality, echo shows ejection fraction 60%, no AED unless patient with clinical seizure activity, signed off Urine culture from [employer] on 03/05 shows Proteus mirabilis Margaret Count 80,000- 100,000 Proteus mirabilis: REACTION Ampicillin Islt MELVIN <=2 Ampicillin+Sulbac Islt MELVIN <=2 S ceFAZolin Islt MELVIN <=4 S Cefepime Islt MELVIN <=0.12 S cefTRIAXone Islt MELVIN <=0.25 S Ciprofloxacin Islt MELVIN <=0.25 S Gentamicin Islt MELVIN <=1 S levoFLOXacin Islt MELVIN <=0.12 S Nitrofurantoin Islt MELVIN 128 R Pip+Tazo Islt MELVIN <=4 S Tobramycin Islt MELVIN <=1 S TMP SMX Islt MELVIN <=20 S Nephrology following Patient will be discharged home in stable condition with oral antibiotics Interval History: No acute overnight changes Patient is seen and examined Patient is comfortably resting in her bed without in any acute distress, eating lunch, denies any new acute complaints Family is at bedside Sodium 132, creatinine 1.77, improving, WBC 13.8, stable Case and plan of care discussed with patient and bedside nurse. All questions answered Adult diet Regular 24HR INTAKE/OUTPUT: Intake/Output Summary (Last 24 hours) at 03/09/2024 0744 Last data filed at 03/08/2024 1055 Gross per 24 hour Intake 2088.5 ml Output -- Net 2088.5 ml Past Medical History: Medical History Past Medical History: Diagnosis Date Arthritis Cancer (CMS/HCC) (HCC) Disease of thyroid gland LABS: CBC: Recent Labs 03/07/240 03/08/24 0531 03/09/24 0242 WBC 19.0* 13.0* 13.8* RBC 4.98 4.30 3.95 HGB 12.9 11.1* 10.0* HCT 40.2 34.0* 31.4* MCV 80.7 79.1 79.5 RDW 15.4* 15.4* 15.3* PLT 548* 453* 401 BMP: Recent Labs 03/07/24 0140 03/08/24 0531 03/09/24 0242 NA 133* 130* 132* K 4.0 3.7 3.6 CL 105 103 102 CO2 15* 22 26 BUN 55* 54* 40* CREATININE 2.35* 2.12* 1.77* GLUCOSE 117* 102* 124* CALCIUM 10.6* 10.0 9.4 ANIONGAP 13 6 4 LIVER PROFILE: No results for input(s): AST, ALT, BILITOT, ALKPHOS, PROT in the last 72 hours. No lab exists for component: LABALBU PT/INR: No results for input(s): PROTIME, INR in the last 72 hours. CARDIAC ENZYMES: No results for input(s): TROPONINI in the last 72 hours. Procalcitonin: No results found for: PROCAL COVID-19 PCR: No results for input(s): COVID19 in the last 72 hours. Objective: Vitals: BP 103/74 Pulse 87 Temp 36 C (96.8 F) (Temporal) Resp 18 Ht 5' 5 (1.651 m) Wt 178 lb (80.7 kg) SpO2 96% BMI 29.62 kg/m Pulse Ox: SpO2 Av.2 % Min: 95 % Max: 100 % Supplemental O2: Physical Exam HENT: Head: Normocephalic. Nose: Nose normal. Mouth/Throat: Mouth: Mucous membranes are moist. Eyes: Extraocular Movements: Extraocular movements intact. Conjunctiva/sclera: Conjunctivae normal. Cardiovascular: Rate and Rhythm: Regular rhythm. Tachycardia present. Pulmonary: Effort: Pulmonary effort is normal. Breath sounds: Normal breath sounds. Abdominal: Palpations: Abdomen is soft. Musculoskeletal: General: Normal range of motion. Cervical back: Normal range of motion. Skin: General: Skin is warm. Neurological: General: No focal deficit present. Mental Status: She is alert and oriented to person, place, and time. Comments: tremor Psychiatric: Mood and Affect: Mood normal. Behavior: Behavior normal. Medications: Scheduled PRN Scheduled Meds amitriptyline, 50 mg, Oral, Nightly [Held by provider] aspirin, 81 mg, Oral, Daily Calcium Carb-Cholecalciferol, 1 tablet, Oral, BID cefTRIAXone, 2,000 mg, IntraVENous, q24h fluconazole, 200 mg, Oral, Daily fludrocortisone, 0.1 mg, Oral, BID heparin, 5,000 Units, SubCUTAneous, 3 times per day influenza, 0.5 mL, IntraMUSCular, Once levothyroxine, 100 mcg, Oral, qAM AC melatonin, 3 mg, Oral, Nightly [Held by provider] mycophenolate, 1,000 mg, Oral, q AM [Held by provider] mycophenolate, 500 mg, Oral, qPM pantoprazole (ProtoNix) 40 mg in sodium chloride (PF) 0.9 % 10 mL injection, 40 mg, IntraVENous, q12h predniSONE, 5 mg, Oral, Daily sodium chloride 0.9%, 5-40 mL, IntraVENous, q12h PRN Meds PRN medications: acetaminophen OR acetaminophen, naloxone, polyethylene glycol (PEG) 3350, promethazine, sodium chloride, sodium chloride 0.9%, sucralfate Continuous Continuous Meds Assessment Data: (CAT1) Reviewed 3 or more notes from different specialty or health system (each=1). (LOW: 2x CAT1 or independent historian MOD: 3x CAT1 or 1x CAT3 EXTENSIVE: 3x CAT1 and 1x CAT3) Acute, acute on chronic, unstable/uncontrolled chronic problems/diagnoses: UTI sepsis -improving B/l hydroureteronephrosis MANJIT on CKD3a Concern for seizure Recurrent falls Dysphagia Esophageal dysmotility Concern for esophagitis Nephrolithiasis s/p stent Hypotension Stable chronic problems affecting care, new non-acute diagnoses: Hyponatremia Chronic interstitial cystitis ILD/NSIP- cellcept being held in setting of infection Hypothyroidism Pre DM2 Tremors Hx tardive dyskinesia Drug induced parkinsonism Plan As a result of the above findings & factors, the following mgmt was pursued: -Ceftriaxone 2 g every 24 hours ordered as per antibiotic stewardship team, patient requires antibiotics till 03/15, likely will switch to oral antibiotics upon discharge -Urology evaluated and is s/p b/l ureteral stent with OP plan for bilateral ureteroscopy with laserlithotripsy in 1-2 weeks with bilateral ureteral stent exchange - GI evaluated, s/p EGD on 03/07 report as above - Neurology, recommendations noted as above, signed off -Nephrology following -TTE shows ejection fraction of 60% -PT/OT consulted - monitor on telemetry SIGNIFICANT DIAGNOSTIC STUDIES: MR brain wo contrast [[id number]] Collected: 03/06/24 5516 Order Status: Completed Updated: 03/06/242351 Narrative: Patient Name: EREN MERCHANT : 1960 Exam Date/Time: 03/06/2024 18:46 Procedure: MR BRAIN WO CONTRAST Ordering Provider: AWAD JARED Reason For Exam: Mental status change, unknown cause HISTORY: Mental status change. MR scan of the brain was performed with sagittal T1 weighted, axial T2 weighted and FLAIR scans, and axial diffusion and susceptibility weighted scans. There are normal sized, midline cerebral ventricles. There is no evidence of mass lesion, edema, nor hemorrhage. There is no hydrocephalus, shift, or herniation. No epidural or subdural collections are present. There is evidence of minimal white matter disease left frontal lobe without acute ischemic change. Diffusion weighted images are negative. The hypothalamus and pituitary regions are normal. The brain stem, cerebellum, and cranial - cervical junction are normal. The globes and orbital contents are grossly normal. There is no mucosal thickening in the paranasal sinuses. Impression: 1. Negative unenhanced MR scan of the brain except for minimal T2 hyperintensities of left frontal lobe probably due to minimal microangiopathic change. Report Dictated on Electronically Signed By: Phong Sandoval MD Electronically Signed Date/Time: 03/06/2024 11:48 PM EDT MR head angio wo IV contrast [[id number]] Collected: 03/06/24 234 Order Status: Completed Updated: 03/06/24 235 Narrative: [facility] 1960 [id number] Exam Date/Time: 03/06/2024 18:46 Procedure: MR HEAD ANGIO WO IV CONTRAST Ordering Provider: AWAD JARED Reason For Exam: Dizziness, persistent/recurrent, cardiac or vascular cause suspected HISTORY: Change in mental status. 3D time of flight MR angiogram of the intracranial vessels was performed, with multiple maximum intensity projection images and review of the primary partitions. There is patent flow in the right and left internal carotid arteries, the distal right and left vertebral arteries, and basilar artery. There is no significant vertebrobasilar nor carotid siphon stenosis. There is good filling of the right and left anterior, middle, and posterior cerebral distribution vessels. There is no critical intracranial stenosis. There is no evidence of aneurysm or vascular malformation. Impression: 1. Negative MR angiogram of the intracranial vessels. Report Dictated on Electronically Signed By: Phong Sandoval MD Electronically Signed Date/Time: 03/06/2024 11:49 PM EDT MR NECK ANGIO WO IV CONTRAST [[id number]] Collected: 03/06/242348 Order Status: Completed Updated: 03/06/242352 Narrative: Patient Name: EREN MERCHANT : 1960 Exam Date/Time: 03/06/2024 18:46 Procedure: MR NECK ANGIO WO IV CONTRAST Ordering Provider: AWAD JARED Reason For Exam: Dizziness, persistent/recurrent, cardiac or vascular cause suspected Reasons for examination: Change in mental status. 2D and 3D time of flight MR angiograms of the extracranial vessels were performed, with multiple maximum intensity projection images and review of the primary partitions. Vessel measurements of any stenotic areas utilize the superior internal carotid artery as the denominator (NASCET criteria used). There is patent flow in the right and left common carotid arteries, and the right and left cervicalinternal carotid arteries. The cervical vertebral arteries are normal, with no stenosis or dissection. There is no significant carotid bifurcation stenosis on either side. There is good filling of the right and left internal and external carotid arteries. There is no ulceration, and no evidence of dissection. Impression: 1. Limited quality MR angiogram of the extracranial carotid and vertebral arteries shows no definite significant stenosis with moderate tortuosity upper ICA's with S-shaped curves. Report Dictated on Electronically Signed By: Phong Sandoval MD Electronically Signed Date/Time: 03/06/2024 11:52 PM EDT FL GUIDANCE OR USE ONLY - NON RESULTABLE [[id number]] Resulted: 03/06/24704 Order Status: Completed Updated: 03/06/24704 Narrative: There is no interpretation needed for this exam. CT abdomen pelvis wo IV contrast [[id number]] Collected: 03/05/24915 Order Status: Completed Updated: 03/05/24935 Narrative: Patient Name: EREN MERCHANT : 1960 Exam Date/Time: 03/05/2024 09:11 Procedure: CT ABDOMEN PELVIS WO IV CONTRAST Ordering Provider: PATTON BENJAMIN Reason For Exam: Hydronephrosis CT ABDOMEN AND PELVIS WITHOUT CONTRAST CLINICAL INDICATION: Hydronephrosis TECHNIQUE: Transaxial sequence through the abdomen and pelvis without contrast with 3 mm reconstruction. Sagittal coronal reconstruction images included. Dose reduction was employed with automated exposure control. COMPARISON: Ultrasound from one day ago and CT from 09/16/2008 FINDINGS: Exam quality: Limited for the evaluation of solid organs due to the lack of intravenous contrast and limited for evaluation of the gastrointestinal tract due to lack of oral contrast. Chest base: Atelectasis at the bases. No pleural fluid. Liver: Normal size and contour. No identifiable lesion. Biliary tree: Normal caliber. Spleen: Normal. Adrenals: Normal. Pancreas: Unremarkable. Kidneys: No contour abnormality or focal renal lesion. Renal collecting systems: Nonobstructing calculus in the right lower pole measures 0.6 cm. No calculus on the left. Moderate bilateral hydronephrosis. The right ureter is only minimally distended anddifficult to follow into the urinary bladder. Some calcifications are present in the right side of the lower pelvis. The left ureter is moderately distended and a calcification focus on image 3:126 is probably an obstructing calculus measuring as large as 0.5 cm in transverse dimension. Free fluid: None. Retroperitoneal/mesenteric lymphadenopathy: None. Aorta: Normal caliber. Bowel: Normal caliber. Abdominal wall: Sacral stimulator device is present. Postoperative gas bubbles present within the subcutaneous soft tissues of the right mid abdominal wall, probably related to an injection site. No other abnormality within the abdominal wall. Bladder: No calculi or filling defects. Pelvic organs/viscera: No mass identified. Pelvic lymphadenopathy: None. Osseous structures: Minor anterior wedge deformity at the T12 level. There is a transitional S1 level. Impression: Bilateral hydronephrosis. Obstructing calculus in the left distal ureter. The right distal ureter is difficult to follow into the bladder. Report Dictated on Electronically Signed By: Guillermo Calvin MD Electronically Signed Date/Time: 03/05/2024 9:35 AM EDT US renal complete [[id number]] Collected: 03/04/242308 Order Status: Completed Updated: 10/19/24 2312 Narrative: [facility] Name: [facility] MERCHANT : 1960 [id number] Exam Date/Time: 03/04/2024 23:08 Procedure: US RENAL COMPLETE Ordering Provider: GROVES DENI Reason For Exam: assess degree of hydronephrosis in pt with MANJIT on CKD ULTRASOUND OF KIDNEYS CLINICAL INDICATION: assess degree of hydronephrosis in pt with MANJIT on CKD TECHNIQUE: Real-time ultrasound of the kidneys. COMPARISON: None. FINDINGS: Right kidney measures 10.3 x 4.9 x 4.3 cm. Renal cortical echotexture within normal limits. Mild dilatation of collecting system. No intrarenal calculi or abnormal perinephric fluid collection. Left kidney measures 9.4 x 4.9 x 4.3 cm. Renal cortical echotexture within normal limits. Mild dilatation of collecting system. No intrarenal calculi or abnormal perinephric fluid collection. Urinary bladder empty and not adequately visualized or evaluated. Impression: 1. Mild bilateral hydronephrosis. Report Dictated on Electronically Signed By: Maxwell Levi MD Electronically Signed Date/Time: 03/04/2024 11:10 PM EDT CONSULTANTS: GI, neurology, nephrology, urology RECOMMENDED NEXT STEPS: Follow-up with PCP, neurology, nephrology, urology DISCHARGE MEDICATIONS: Medication List START taking these medications fluconazole 200 MG tablet Commonly known as: Diflucan Take 1 tablet (200 mg) by mouth daily for 11 doses. Start taking on: March 10, 2024 fludrocortisone 0.1 MG tablet Commonly known as: Florinef Take 1 tablet (0.1 mg) by mouth 2 times daily. melatonin 3 MG tablet Take 1 tablet (3 mg) by mouth Nightly. sucralfate 1 g tablet Commonly known as: Carafate Take 1 tablet (1 g) by mouth 4 times daily as needed (as needed 1hr before meals and at bedtime forpain suspected 2/2 esophagitis and possible gastritis) for up to 10 days. sulfamethoxazole-trimethoprim 800-160 MG tablet Commonly known as: Bactrim DS Take 1 tablet by mouth 2 times daily for 6 days. CONTINUE taking these medications amitriptyline 75 MG tablet Commonly known as: Elavil aspirin 81 MG EC tablet biotin 5000 MCG capsule Calcium Carb-Cholecalciferol 600-10 MG-MCG tablet levothyroxine 75 MCG tablet Commonly known as: Synthroid, Levoxyl mycophenolate 500 MG tablet Commonly known as: Cellcept ondansetron 4 MG tablet Commonly known as: Zofran Prevagen 10 MG capsule Generic drug: Apoaequorin STOP taking these medications predniSONE 5 MG tablet Commonly known as: Deltasone Where to Get Your Medications These medications were sent to [id number] - [place] - [address] [place] [address] fluconazole 200 MG tablet fludrocortisone 0.1 MG tablet melatonin 3 MG tablet sucralfate 1 g tablet sulfamethoxazole-trimethoprim 800-160 MG tablet DIET: Adult diet Regular ACTIVITY: No restriction. COMPLEXITY OF FOLLOW UP: [] Moderate Complexity: follow up within 7-14 calendar days (86465) [] Severe Complexity: follow up within 7 calendar days (18840) FOLLOW UP TESTING, PENDING RESULTS OR REFERRALS AT TRANSITIONAL CARE VISIT: [] Yes [] No PENDING STUDIES: DISPOSITION: Home FACILITY/HOME CARE AGENCY NAME: Follow up with Pepito Steve MD [address] [place] [address] [phone] Follow up [facility] [address] [facility] [phone] Schedule an appointment as soon as possible for a visit in 1 week(s) Audi Bae MD [address] [facility] [address] [facility] access hospital [phone] Schedule an appointment as soon as possible for a visit in 2 week(s) Aishwarya Fraire MD [address] [facility] [address] Critical access hospital [phone] Schedule an appointment as soon as possible for a visit in 4 week(s) INSTRUCTIONS TO MA/SW: Please call patient on day after discharge (must document patient contacted within 2 business days of discharge). FOLLOW UP QUESTIONS FOR MA/SW: 1. Did you get medications filled and taking them as instructed from discharge? 2. Are you following your discharge instructions from your hospital stay? 3. Please confirm patient is scheduled for a follow up appointment within the above time frame. DISCHARGE TIME: I spent 33 minutes on patient education, discharge planning SIGNED: Jesse Do MD 03/09/2024, 4:45 PM documented in this [facility]10-24-20[facility] Subjective/ 63 y.o. year old female who we are seeing in consultation for hypotension. In bed, at bedside Blood pressure is improved but still soft. Pt asymptomatic. No edema. Dowd is absent, denies issues with UOP ROS Dysphagia Denies chest pain, shortness of breath, Nausea, vomiting , diarrhea, fever or chills. No interval changes to PFSH. All interval notes/labs/imaging reviewed. Objective/ Vitals: 03/09/24 0058 03/09/24 0421 03/09/24 0856 03/09/24 1238 BP: 109/74 103/74 108/77 99/66 BP Location: Right arm Right arm Patient Position: Sitting Sitting Pulse: 89 87 86 87 Resp: 18 18 12 12 Temp: (!) 35.8 ?C (96.5 ?F) 36 ?C (96.8 ?F) 36.4 ?C (97.6 ?F) 36.4 ?C (97.6 ?F) TempSrc: Temporal Temporal Temporal Temporal SpO2: 96% 96% 99% 99% Weight: Height: 24HR INTAKE/OUTPUT: Intake/Output Summary (Last 24 hours) at 03/09/2024 1551 Last data filed at 03/09/2024 1028 Gross per 24 hour Intake 1.5 ml Output -- Net 1.5 ml Physical Exam HENT: Head: Normocephalic and atraumatic. Mouth/Throat: Mouth: Mucous membranes are moist. Eyes: General: No scleral icterus. Pupils: Pupils are equal, round, and reactive to light. Cardiovascular: Rate and Rhythm: Normal rate and regular rhythm. Pulmonary: Effort: Pulmonary effort is normal. Breath sounds: Normal breath sounds. Abdominal: General: Bowel sounds are normal. Palpations: Abdomen is soft. Musculoskeletal: Cervical back: Neck supple. Right lower leg: No edema. Left lower leg: No edema. Skin: General: Skin is warm and dry. Neurological: Mental Status: She is alert and oriented to person, place, and time. Psychiatric: Mood and Affect: Mood normal. Scheduled Meds:amitriptyline, 50 mg, Oral, Nightly [Held by provider] aspirin, 81 mg, Oral, Daily Calcium Carb-Cholecalciferol, 1 tablet, Oral, BID cefTRIAXone, 2,000 mg, IntraVENous, q24h fluconazole, 200 mg, Oral, Daily fludrocortisone, 0.1 mg, Oral, BID heparin, 5,000 Units, SubCUTAneous, 3 times per day influenza, 0.5 mL, IntraMUSCular, Once levothyroxine, 100 mcg, Oral, qAM AC melatonin, 3 mg, Oral, Nightly [Held by provider] mycophenolate, 1,000 mg, Oral, q AM [Held by provider] mycophenolate, 500 mg, Oral, qPM pantoprazole (ProtoNix) 40 mg in sodium chloride (PF) 0.9 % 10 mL injection, 40 mg, IntraVENous, q12h predniSONE, 5 mg, Oral, Daily sodium chloride 0.9%, 5-40 mL, IntraVENous, q12h Continuous Infusions: PRN Meds:.PRN medications: acetaminophen OR acetaminophen, naloxone, polyethylene glycol (PEG) 3350, promethazine, sodium chloride, sodium chloride 0.9%, sucralfate Data/ Recent Labs 03/07/24 0140 03/08/24 0531 03/09/24 0242 WBC 19.0* 13.0* 13.8* HGB 12.9 11.1* 10.0* HCT 40.2 34.0* 31.4* MCV 80.7 79.1 79.5 PLT 548* 453* 401 Recent Labs 03/07/24 0140 03/08/24 0531 03/09/24 0242 NA 133* 130* 132* K 4.0 3.7 3.6 CL 105 103 102 CO2 15* 22 26 GLUCOSE 117* 102* 124* BUN 55* 54* 40* CREATININE 2.35* 2.12* 1.77* Assessment/ Hypotension (I95.9) MANJIT on CKD3b (N17.9, N18.32) NAGMA, acute (E87.21) Hyponatremia Mild bilateral hydronephrosis s/p bl stent placement (N13.2) Esophagitis Dysphagia Plan/ -BP improving on fludrocortisone 0.1 mg BID, c/w same -Metabolic acidosis resolved. Cont to trend. -Na level fluctuating. Cont to trend. Levels acceptable. -Patient encouraged to increase po intake of solutes/protein -Scr slowly improving, baseline ~ 1.6-1.7, cont to trend -IV abx for UTI per primary: on ceftriaxone -Rest of management per primary team Check orthostatic vitals. If -ve and pt is asymptomatic, no further interventions. We will follow. Please do not hesitate to call with any questions or concerns.[facility]10[facility] History of Present illness Narrative* Pepito Steve MD - 03/09/2024 3:51 PM EDT [facility] Nephrology Progress Note Subjective/ 63 y.o. year old female who we are seeing in consultation for hypotension. In bed, at bedside Blood pressure is improved but still soft. Pt asymptomatic. No edema. Dowd is absent, denies issues with UOP ROS Dysphagia Denies chest pain, shortness of breath, Nausea, vomiting , diarrhea, fever or chills. No interval changes to [facility]. All interval notes/labs/imaging reviewed. Objective/ Vitals: 03/09/24 0058 03/09/24 0421 03/09/24 0856 03/09/24 1238 BP: 109/74 103/74 108/77 99/66 BP Location: Right arm Right arm Patient Position: Sitting Sitting Pulse: 89 87 86 87 Resp: 18 18 12 12 Temp: (!) 35.8 C (96.5 F) 36 C (96.8 F) 36.4 C (97.6 F) 36.4 C (97.6 F) TempSrc: Temporal Temporal Temporal Temporal SpO2: 96% 96% 99% 99% Weight: Height: 24HR INTAKE/OUTPUT: Intake/Output Summary (Last 24 hours) at 03/09/2024 1551 Last data filed at 03/09/2024 1028 Gross per 24 hour Intake 1.5 ml Output -- Net 1.5 ml Physical Exam HENT: Head: Normocephalic and atraumatic. Mouth/Throat: Mouth: Mucous membranes are moist. Eyes: General: No scleral icterus. Pupils: Pupils are equal, round, and reactive to light. Cardiovascular: Rate and Rhythm: Normal rate and regular rhythm. Pulmonary: Effort: Pulmonary effort is normal. Breath sounds: Normal breath sounds. Abdominal: General: Bowel sounds are normal. Palpations: Abdomen is soft. Musculoskeletal: Cervical back: Neck supple. Right lower leg: No edema. Left lower leg: No edema. Skin: General: Skin is warm and dry. Neurological: Mental Status: She is alert and oriented to person, place, and time. Psychiatric: Mood and Affect: Mood normal. Scheduled Meds:amitriptyline, 50 mg, Oral, Nightly [Held by provider] aspirin, 81 mg, Oral, Daily Calcium Carb-Cholecalciferol, 1 tablet, Oral, BID cefTRIAXone, 2,000 mg, IntraVENous, q24h fluconazole, 200 mg, Oral, Daily fludrocortisone, 0.1 mg, Oral, BID heparin, 5,000 Units, SubCUTAneous, 3 times per day influenza, 0.5 mL, IntraMUSCular, Once levothyroxine, 100 mcg, Oral, qAM AC melatonin, 3 mg, Oral, Nightly [Held by provider] mycophenolate, 1,000 mg, Oral, q AM [Held by provider] mycophenolate, 500 mg, Oral, qPM pantoprazole (ProtoNix) 40 mg in sodium chloride (PF) 0.9 % 10 mL injection, 40 mg, IntraVENous, q12h predniSONE, 5 mg, Oral, Daily sodium chloride 0.9%, 5-40 mL, IntraVENous, q12h Continuous Infusions: PRN Meds:.PRN medications: acetaminophen OR acetaminophen, naloxone, polyethylene glycol (PEG) 3350, promethazine, sodium chloride, sodium chloride 0.9%, sucralfate Data/ Recent Labs 03/07/24 0140 03/08/24 0531 03/09/24 0242 WBC 19.0* 13.0* 13.8* HGB 12.9 11.1* 10.0* HCT 40.2 34.0* 31.4* MCV 80.7 79.1 79.5 PLT 548* 453* 401 Recent Labs 03/07/24 0140 03/08/24 0531 03/09/24 0242 NA 133* 130* 132* K 4.0 3.7 3.6 CL 105 103 102 CO2 15* 22 26 GLUCOSE 117* 102* 124* BUN 55* 54* 40* CREATININE 2.35* 2.12* 1.77* Assessment/ Hypotension (I95.9) MANJIT on CKD3b (N17.9, N18.32) NAGMA, acute (E87.21) Hyponatremia Mild bilateral hydronephrosis s/p bl stent placement (N13.2) Esophagitis Dysphagia Plan/ -BP improving on fludrocortisone 0.1 mg BID, c/w same -Metabolic acidosis resolved. Cont to trend. -Na level fluctuating. Cont to trend. Levels acceptable. -Patient encouraged to increase po intake of solutes/protein -Scr slowly improving, baseline ~ 1.6-1.7, cont to trend -IV abx for UTI per primary: on ceftriaxone -Rest of management per primary team Check orthostatic vitals. If -ve and pt is asymptomatic, no further interventions. We will follow. Please do not hesitate to call with any questions or concerns. * Ila Parks, PT - 03/09/2024 11:01 AM EDT Images from the original note were not included. PHYSICAL THERAPY [facility] Initial Evaluation Name/MRN: Eren Merchant ([id number]) Evaluation Date: 03/09/2024 Date of : 1960 Admission Date: 03/04/2024 2:14 PM Age: 63 y.o. Room/Bed: H-6105/H-6103 A Discharge Recommendation: Home with assist PRN Equipment Needed: No Assessment IMPRESSION: PT Chemo completed. She is currently Indep for bed mobility, transfers, ambulation without a device and stairs. Pt voiced no concerns for homegoing and reported she feels near her functional baseline. Reported she will have her S.O. to assist as needed. Recommend disch to home with assist PRN. No other acute PT needs at this time, will sign off. Admitting Diagnosis: Hydronephrosis. S/p bilateral stent placement 03/05/24 Prognosis: good Performance Deficits /Impairments: N/A Decision Making: Low Complexity Subjective Pt in the bed and agreeable to PT. Reported she has been going to the bathroom Indep and is hoping to return to home either today or tomorrow. Pain: Pt denies any current pain. Past Medical History: Past Medical History: Diagnosis Date Arthritis Cancer (CMS/HCC) ([facility]) Disease of thyroid gland Past Surgical History: Past Surgical History: Procedure Laterality Date BACK SURGERY CHOLECYSTECTOMY COLON SURGERY THYMECTOMY stated per patient, for cancer removal Admission Diagnosis: Patient Active Problem List Diagnosis Date Noted Acquired hypothyroidism 03/04/2024 Chronic interstitial cystitis 03/03/2024 Stage 3a chronic kidney disease ([facility]) 01/12/2023 NSIP (nonspecific interstitial pneumonitis) ([facility]) 10/30/2022 Esophageal dysmotility 07/31/2020 ILD (interstitial lung disease) ([facility]) 03/25/2020 Lung nodules 02/12/2020 Post-menopausal bleeding 11/25/2018 Hyponatremia 06/14/2018 Hydronephrosis with urinary obstruction due to ureteral calculus 03/04/2024 Medical Precautions: No active isolations Proper PPE donned/doffed in accordance with facility standards. Fall Risk: Neal Fall Risk Score: 40 (Medium Risk) Precautions/Restrictions: N/A Family/Caregiver Present: none Overall Cognitive Status: WNL Overall Orientation Status: Oriented x4 Vision: not assessed this session Hearing: normal Social/Functional History Patient admitted from home. 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 S.O. is retired and able to assist if needed. Prior Level of Function Prior Level of ADL Function: Independent Prior Level of Mobility: Independent; Device: None Prior Level of Transfers: Independent Objective Lower Extremity Assessment AROM: WNL PROM: Not assessed this session Strength: WFL 4+/5 knee extension and ankle DF Sensation: Not assessed this session Balance: Balance During Session: Posture: good Sitting - Static: Independent Sitting - Dynamic: Independent Standing - Static: Independent Standing - Dynamic: Independent Bed Mobility: Supine to sit: Independent Transfers Sit to stand: Independent Stand to sit: Independent Ambulation Ambulation 1 Assistive device(s) used: None Assist level: Independent Distance (ft): ~350 ft Quality of gait: No gait deviations, No LOB, denied dizziness, light headedness and SOB throughout. Stairs Stairs 1 Assistive device(s) used: None Assist level: Modified Independent # of steps: 12 Rails: left Additional factors: reciprocal going up, reciprocal going down Outcome Measures AM-PAC How much HELP from another person do you currently need Turning from your back to your side while in a flat bed without using bedrails?: None Moving from lying on your back to sitting on the side of a flat bed without using bedrails?: None Moving to and from a bed to a chair (including a wheelchair)?: None Standing up from a chair using your arms (wheelchair or bedside chair)?: None Walking in a hospital room?: None Stair climbing assessed?: Yes Climbing 3-5 steps with a railing?+: None AM-PAC Inpatient Mobility Raw Score : 24 AM-PAC Inpatient Mobility Raw Score (No Stairs) : 20 JH-HLM JH-HLM Score: Walked 250 ft or more (i.e. several laps on unit) Plan No skilled acute PT indicated at this time. Please reconsult should changes occur. Safety/Education Safety Safety Devices in place: call light within reach and left to go to the bathroom Indep. Restraints: No Education Education Given To: patient Education Provided: PT Role, PT Goals, Gait Training, Plan of Care, Precautions, Discharge Recommendations, and Benefits of Increasing Activity Education Method: Verbal and Demonstration Barriers to Learning: None Education Outcome: Verbalized Understanding Goals Patient Stated Goal: To return to home soon Encounter Problems Encounter Problems (Active) Pain - Adult Therapy Time Individual Co-treatment Time In 1019 Time Out 1033 Minutes 14 Ila Parks PT Patient's Physical Therapy Plan of Care supervision is transferred to a [facility] Physical Therapist. Goals and/or treatment plan was established in collaboration with patient/family/other representatives. * Jesse Do MD - 03/09/2024 7:43 AM EDT Hospitalist Progress Note 03/09/2024 Subjective: Admit Date: 03/04/2024 PCP: Priyanka Smith Room#: [id number] A BRIEF HOSPITAL COURSE: Eren is a 63 y.o. 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 Urology placed b/l ureteral stent 03/05. CT with incidentally esophageal thickening. GI has evaluated, status post EGD, shows severe candidiasis esophagitis with no bleeding, recommends to change PPI to IV 40 mg twice daily for now, consider Diflucan, repeat upper endoscopy in 8 weeks, discussed via secure chat Neurology following, EEG normal, MRI brain negative, MRA head/neck shows moderate tortuosity of upper ICA's with S shaped close, otherwise no acute abnormality, echo shows ejection fraction 60%, no AED unless patient with clinical seizure activity, signed off Urine culture from [employer] on 03/05 shows Proteus mirabilis Margaret Count 80,000- 100,000 Proteus mirabilis: REACTION Ampicillin Islt MELVIN <=2 Ampicillin+Sulbac Islt MELVIN <=2 S ceFAZolin Islt MELVIN <=4 S Cefepime Islt MELVIN <=0.12 S cefTRIAXone Islt MELVIN <=0.25 S Ciprofloxacin Islt MELVIN <=0.25 S Gentamicin Islt MELVIN <=1 S levoFLOXacin Islt MELVIN <=0.12 S Nitrofurantoin Islt MELVIN 128 R Pip+Tazo Islt MELVIN <=4 S Tobramycin Islt MELVIN <=1 S TMP SMX Islt MELVIN <=20 S Nephrology following Interval History: No acute overnight changes Patient is seen and examined Patient is comfortably resting in her bed without in any acute distress, eating lunch, denies any new acute complaints Family is at bedside Sodium 132, creatinine 1.77, improving, WBC 13.8, stable Case and plan of care discussed with patient and bedside nurse. All questions answered Adult diet Regular 24HR INTAKE/OUTPUT: Intake/Output Summary (Last 24 hours) at 03/09/2024 0744 Last data filed at 03/08/2024 1055 Gross per 24 hour Intake 2088.5 ml Output -- Net 2088.5 ml Past Medical History: Past Medical History: Diagnosis Date Arthritis Cancer (CMS/HCC) (HCC) Disease of thyroid gland LABS: CBC: Recent Labs 03/07/24 0140 03/08/24 0531 03/09/24 0242 WBC 19.0* 13.0* 13.8* RBC 4.98 4.30 3.95 HGB 12.9 11.1* 10.0* HCT 40.2 34.0* 31.4* MCV 80.7 79.1 79.5 RDW 15.4* 15.4* 15.3* PLT 548* 453* 401 BMP: Recent Labs 03/07/240 03/08/2431 03/09/24241 NA 133* 130* 132* K 4.0 3.7 3.6 CL 105 103 102 CO2 15* 22 26 BUN 55* 54* 40* CREATININE 2.35* 2.12* 1.77* GLUCOSE 117* 102* 124* CALCIUM 10.6* 10.0 9.4 ANIONGAP 13 6 4 LIVER PROFILE: No results for input(s): AST, ALT, BILITOT, ALKPHOS, PROT in the last 72 hours. No lab exists for component: LABALBU PT/INR: No results for input(s): PROTIME, INR in the last 72 hours. CARDIAC ENZYMES: No results for input(s): TROPONINI in the last 72 hours. Procalcitonin: No results found for: PROCAL COVID-19 PCR: No results for input(s): COVID19 in the last 72 hours. Objective: Vitals: BP 103/74 Pulse 87 Temp 36 C (96.8 F) (Temporal) Resp 18 Ht 5' 5 (1.651 m) Wt 178 lb (80.7 kg) SpO2 96% BMI 29.62 kg/m Pulse Ox: SpO2 Av.2 % Min: 95 % Max: 100 % Supplemental O2: Physical Exam HENT: Head: Normocephalic. Nose: Nose normal. Mouth/Throat: Mouth: Mucous membranes are moist. Eyes: Extraocular Movements: Extraocular movements intact. Conjunctiva/sclera: Conjunctivae normal. Cardiovascular: Rate and Rhythm: Regular rhythm. Tachycardia present. Pulmonary: Effort: Pulmonary effort is normal. Breath sounds: Normal breath sounds. Abdominal: Palpations: Abdomen is soft. Musculoskeletal: General: Normal range of motion. Cervical back: Normal range of motion. Skin: General: Skin is warm. Neurological: General: No focal deficit present. Mental Status: She is alert and oriented to person, place, and time. Comments: tremor Psychiatric: Mood and Affect: Mood normal. Behavior: Behavior normal. Medications: Scheduled PRN amitriptyline, 50 mg, Oral, Nightly [Held by provider] aspirin, 81 mg, Oral, Daily Calcium Carb-Cholecalciferol, 1 tablet, Oral, BID cefTRIAXone, 2,000 mg, IntraVENous, q24h fluconazole, 200 mg, Oral, Daily fludrocortisone, 0.1 mg, Oral, BID heparin, 5,000 Units, SubCUTAneous, 3 times per day influenza, 0.5 mL, IntraMUSCular, Once levothyroxine, 100 mcg, Oral, qAM AC melatonin, 3 mg, Oral, Nightly [Held by provider] mycophenolate, 1,000 mg, Oral, q AM [Held by provider] mycophenolate, 500 mg, Oral, qPM pantoprazole (ProtoNix) 40 mg in sodium chloride (PF) 0.9 % 10 mL injection, 40 mg, IntraVENous, q12h predniSONE, 5 mg, Oral, Daily sodium chloride 0.9%, 5-40 mL, IntraVENous, q12h PRN medications: acetaminophen OR acetaminophen, naloxone, polyethylene glycol (PEG) 3350, promethazine, sodium chloride, sodium chloride 0.9%, sucralfate Continuous Assessment Data: (CAT1) Reviewed 3 or more notes from different specialty or health system (each=1). (LOW: 2x CAT1 or independent historian MOD: 3x CAT1 or 1x CAT3 EXTENSIVE: 3x CAT1 and 1x CAT3) Acute, acute on chronic, unstable/uncontrolled chronic problems/diagnoses: UTI sepsis -improving B/l hydroureteronephrosis MANJIT on CKD3a Concern for seizure Recurrent falls Dysphagia Esophageal dysmotility Concern for esophagitis Nephrolithiasis s/p stent Hypotension Stable chronic problems affecting care, new non-acute diagnoses: Hyponatremia Chronic interstitial cystitis ILD/NSIP- cellcept being held in setting of infection Hypothyroidism Pre DM2 Tremors Hx tardive dyskinesia Drug induced parkinsonism Plan As a result of the above findings & factors, the following mgmt was pursued: -Ceftriaxone 2 g every 24 hours ordered as per antibiotic stewardship team, patient requires antibiotics till 03/15, likely will switch to oral antibiotics upon discharge -Urology evaluated and is s/p b/l ureteral stent with OP plan for bilateral ureteroscopy with laserlithotripsy in 1-2 weeks with bilateral ureteral stent exchange - GI evaluated, s/p EGD on 03/07 report as above - Neurology, recommendations noted as above, signed off -Nephrology following -TTE shows ejection fraction of 60% -PT/OT consulted - monitor on telemetry - continue abx follow urine culture - am labs, replace lytes prn - PT/OT/CM/SW - delirium precautions: - DVT prophylaxis: enoxaparin and encourage ambulation Advance Directive: Full Code Anticipated Discharge - Date - 1-2 days - Location -TBD - Pending the following -clinical course Total time spent (which include face to face and non face to face encounters) : 36 minutes Extended Emergency Contact Information Primary Emergency Contact: Shelton Merchant Mobile Relation: Son Preferred language: Bah[employer]ian [employer] Photographer needed? No Secondary Emergency Contact: Michael Merchant Mobile Relation: Significant Other Preferred language: Bah[place]ian [employer] Photographer needed? No Jesse Do MD Division of Hospitalist Medicine [facility] * Jesse Do MD - 03/08/2024 8:11 AM EDT Hospitalist Progress Note 03/08/2024 Subjective: Admit Date: 03/04/2024 PCP: Priyanka Smith Room#: [id number] A BRIEF HOSPITAL COURSE: Eren is a 63 y.o. 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 Urology placed b/l ureteral stent 03/05. CT with incidentally esophageal thickening. GI has evaluated, status post EGD, shows severe candidiasis esophagitis with no bleeding, recommends to change PPI to IV 40 mg twice daily for now, consider Diflucan, repeat upper endoscopy in 8 weeks, discussed via secure chat Neurology following, EEG normal, MRI brain negative, MRA head/neck shows moderate tortuosity of upper ICA's with S shaped close, otherwise no acute abnormality, echo shows ejection fraction 60%, no AED unless patient with clinical seizure activity, signed off Urine culture from [employer] on 03/05 shows Proteus mirabilis Margaret Count 80,000- 100,000 Proteus mirabilis: REACTION Ampicillin Islt MELVIN <=2 Ampicillin+Sulbac Islt MELVIN <=2 S ceFAZolin Islt MLEVIN <=4 S Cefepime Islt MELVIN <=0.12 S cefTRIAXone Islt MELVIN <=0.25 S Ciprofloxacin Islt MELVIN <=0.25 S Gentamicin Islt MELVIN <=1 S levoFLOXacin Islt MELVIN <=0.12 S Nitrofurantoin Islt MELVIN 128 R Pip+Tazo Islt MELVIN <=4 S Tobramycin Islt EMLVIN <=1 S TMP SMX Islt MELVIN <=20 S Nephrology seen the patient, appreciated Interval History: No acute overnight changes Patient is seen and examined She is comfortably sitting in her bedside chair without in any acute distress She denies any new acute complaints Family is at bedside Discussed with antibiotic stewardship team her urine culture from [employer] on 03/05 shows Proteus mirabilis Margaret Count 80,000-100,000 Proteus mirabilis: REACTION Ampicillin Islt MELVIN <=2 Ampicillin+Sulbac Islt MELVIN <=2 S ceFAZolin Islt MELVIN <=4 S Cefepime Islt MELVIN <=0.12 S cefTRIAXone Islt MELVIN <=0.25 S Ciprofloxacin Islt MELVIN <=0.25 S Gentamicin Islt MELVIN <=1 S levoFLOXacin Islt MELVIN <=0.12 S Nitrofurantoin Islt MELVIN 128 R Pip+Tazo Islt MELVIN <=4 S Tobramycin Islt MELVIN <=1 S TMP SMX Islt MELVIN <=20 S Antibiotic stewardship team recommends to restart on ceftriaxone with 2 g every 24 hours, patient requires antibiotics stable 03/15, likely oral antibiotics upon discharge Family is at bedside Sodium 130, creatinine 2.12, improving, WBC 13, improving Case and plan of care discussed with patient and bedside nurse. All questions answered Adult diet Regular 24HR INTAKE/OUTPUT: Intake/Output Summary (Last 24 hours) at 03/08/2024 0811 Last data filed at 03/07/2024 1640 Gross per 24 hour Intake 1150 ml Output -- Net 1150 ml Past Medical History: Past Medical History: Diagnosis Date Arthritis Cancer (CMS/HCC) (HCC) Disease of thyroid gland LABS: CBC: Recent Labs 03/06/2452203/07/24 0140 03/08/24 0531 WBC 11.2* 19.0* 13.0* RBC 4.73 4.98 4.30 HGB 12.2 12.9 11.1* HCT 36.8 40.2 34.0* MCV 77.8 80.7 79.1 RDW 15.2* 15.4* 15.4* PLT 462* 548* 453* BMP: Recent Labs 03/06/24 0503/07/24 0140 03/08/24 0531 NA 132* 133* 130* K 4.5 4.0 3.7 CL 105 105 103 CO2 16* 15* 22 BUN 60* 55* 54* CREATININE 2.42* 2.35* 2.12* GLUCOSE 139* 117* 102* CALCIUM 10.7* 10.6* 10.0 ANIONGAP 11 13 6 LIVER PROFILE: No results for input(s): AST, ALT, BILITOT, ALKPHOS, PROT in the last 72 hours. No lab exists for component: LABALBU PT/INR: No results for input(s): PROTIME, INR in the last 72 hours. CARDIAC ENZYMES: No results for input(s): TROPONINI in the last 72 hours. Procalcitonin: No results found for: PROCAL COVID-19 PCR: No results for input(s): COVID19 in the last 72 hours. Objective: Vitals: BP 133/94 Pulse 98 Temp (!) 35.8 C (96.5 F) (Temporal) Resp 18 Ht 5' 5 (1.651 m) Wt 178 lb (80.7 kg) SpO2 98% BMI 29.62 kg/m Pulse Ox: SpO2 Av.5 % Min: 94 % Max: 100 % Supplemental O2: Physical Exam HENT: Head: Normocephalic. Nose: Nose normal. Mouth/Throat: Mouth: Mucous membranes are moist. Eyes: Extraocular Movements: Extraocular movements intact. Conjunctiva/sclera: Conjunctivae normal. Cardiovascular: Rate and Rhythm: Regular rhythm. Tachycardia present. Pulmonary: Effort: Pulmonary effort is normal. Breath sounds: Normal breath sounds. Abdominal: Palpations: Abdomen is soft. Musculoskeletal: General: Normal range of motion. Cervical back: Normal range of motion. Skin: General: Skin is warm. Neurological: General: No focal deficit present. Mental Status: She is alert and oriented to person, place, and time. Comments: tremor Psychiatric: Mood and Affect: Mood normal. Behavior: Behavior normal. Medications: Scheduled PRN amitriptyline, 50 mg, Oral, Nightly [Held by provider] aspirin, 81 mg, Oral, Daily Calcium Carb-Cholecalciferol, 1 tablet, Oral, BID cefTRIAXone, 1,000 mg, IntraVENous, q24h fluconazole, 200 mg, Oral, Daily fludrocortisone, 0.1 mg, Oral, BID heparin, 5,000 Units, SubCUTAneous, 3 times per day influenza, 0.5 mL, IntraMUSCular, Once levothyroxine, 100 mcg, Oral, qAM AC melatonin, 3 mg, Oral, Nightly [Held by provider] mycophenolate, 1,000 mg, Oral, q AM [Held by provider] mycophenolate, 500 mg, Oral, qPM pantoprazole (ProtoNix) 40 mg in sodium chloride (PF) 0.9 % 10 mL injection, 40 mg, IntraVENous, q12h predniSONE, 5 mg, Oral, Daily sodium chloride 0.9%, 5-40 mL, IntraVENous, q12h PRN medications: acetaminophen OR acetaminophen, naloxone, polyethylene glycol (PEG) 3350, promethazine, sodium chloride, sodium chloride 0.9%, sucralfate Continuous sodium bicarbonate 150 mEq in dextrose 5 % 1,000 mL infusion, 100 mL/hr, Last Rate: 100 mL/hr (03/07/24 1640) Assessment Data: (CAT1) Reviewed 3 or more notes from different specialty or health system (each=1). (LOW: 2x CAT1 or independent historian MOD: 3x CAT1 or 1x CAT3 EXTENSIVE: 3x CAT1 and 1x CAT3) Acute, acute on chronic, unstable/uncontrolled chronic problems/diagnoses: UTI sepsis -improving B/l hydroureteronephrosis MANJIT on CKD3a Concern for seizure Recurrent falls Dysphagia Esophageal dysmotility Concern for esophagitis Nephrolithiasis s/p stent Hypotension Stable chronic problems affecting care, new non-acute diagnoses: Hyponatremia Chronic interstitial cystitis ILD/NSIP- cellcept being held in setting of infection Hypothyroidism Pre DM2 Tremors Hx tardive dyskinesia Drug induced parkinsonism Plan As a result of the above findings & factors, the following mgmt was pursued: -Ceftriaxone 2 g every 24 hours ordered as per antibiotic stewardship team, patient requires antibiotics till 03/15, likely will switch to oral antibiotics upon discharge -Urology evaluated and is s/p b/l ureteral stent with OP plan for bilateral ureteroscopy with laserlithotripsy in 1-2 weeks with bilateral ureteral stent exchange - GI evaluated, s/p EGD on 03/07 report as above - Neurology, recommendations noted as above, signed off - TTE shows ejection fraction of 60% -PT/OT consulted - monitor on telemetry - continue abx follow urine culture - am labs, replace lytes prn - PT/OT/CM/SW - delirium precautions: - DVT prophylaxis: enoxaparin and encourage ambulation Advance Directive: Full Code Anticipated Discharge - Date - 1-2 days - Location -TBD - Pending the following -clinical course Total time spent (which include face to face and non face to face encounters) : 37.5 minutes Extended Emergency Contact Information Primary Emergency Contact: Shelton Merchant Mobile Relation: Son Preferred language: Bah[place]ian [employer] Photographer needed? No Secondary Emergency Contact: ShondaMichael Mobile Relation: Significant Other Preferred language: Bah[place]ian [employer] Photographer needed? No Jesse Do MD Division of Hospitalist Medicine [facility] * Deepika Rivera PA-C - 03/08/2024 8:11 AM EDT [facility] Progress Note Subjective/ 63 y.o. year old female who we are seeing in consultation for hypotension. Sitting up in bed, at bedside Blood pressure is improved Edema is absent Dowd is absent, denies issues with UOP Appetite slowly improving No other new issues at this time ROS Dysphagia Denies chest pain, shortness of breath, Nausea, vomiting , diarrhea, fever or chills. No interval changes to [facility]. All interval notes/labs/imaging reviewed. Objective/ Vitals: 03/07/24 1117 03/07/24200603/08/24 0032 03/08/24 0443 BP: 107/70 109/71 135/98 133/94 BP Location: Patient Position: Pulse: 97 101 102 98 Resp: 16 16 18 18 Temp: 36.1 C (96.9 F) 36.5 C (97.7 F) 36.1 C (96.9 F) (!) 35.8 C (96.5 F) TempSrc: Temporal Temporal Temporal Temporal SpO2: 94% 98% 97% 98% Weight: Height: 24HR INTAKE/OUTPUT: Intake/Output Summary (Last 24 hours) at 03/08/2024 0811 Last data filed at 03/07/2024 1640 Gross per 24 hour Intake 1150 ml Output -- Net 1150 ml Physical Exam HENT: Head: Normocephalic and atraumatic. Mouth/Throat: Mouth: Mucous membranes are moist. Eyes: General: No scleral icterus. Pupils: Pupils are equal, round, and reactive to light. Cardiovascular: Rate and Rhythm: Normal rate and regular rhythm. Pulmonary: Effort: Pulmonary effort is normal. Breath sounds: Normal breath sounds. Abdominal: General: Bowel sounds are normal. Palpations: Abdomen is soft. Musculoskeletal: Cervical back: Neck supple. Right lower leg: No edema. Left lower leg: No edema. Skin: General: Skin is warm and dry. Neurological: Mental Status: She is alert and oriented to person, place, and time. Psychiatric: Mood and Affect: Mood normal. Scheduled Meds:amitriptyline, 50 mg, Oral, Nightly [Held by provider] aspirin, 81 mg, Oral, Daily Calcium Carb-Cholecalciferol, 1 tablet, Oral, BID cefTRIAXone, 1,000 mg, IntraVENous, q24h fluconazole, 200 mg, Oral, Daily fludrocortisone, 0.1 mg, Oral, BID heparin, 5,000 Units, SubCUTAneous, 3 times per day influenza, 0.5 mL, IntraMUSCular, Once levothyroxine, 100 mcg, Oral, qAM AC melatonin, 3 mg, Oral, Nightly [Held by provider] mycophenolate, 1,000 mg, Oral, q AM [Held by provider] mycophenolate, 500 mg, Oral, qPM pantoprazole (ProtoNix) 40 mg in sodium chloride (PF) 0.9 % 10 mL injection, 40 mg, IntraVENous, q12h predniSONE, 5 mg, Oral, Daily sodium chloride 0.9%, 5-40 mL, IntraVENous, q12h Continuous Infusions:sodium bicarbonate 150 mEq in dextrose 5 % 1,000 mL infusion, 100 mL/hr, Last Rate: 100 mL/hr (03/07/24 1640) PRN Meds:.PRN medications: acetaminophen OR acetaminophen, naloxone, polyethylene glycol (PEG) 3350, promethazine, sodium chloride, sodium chloride 0.9%, sucralfate Data/ Recent Labs 03/06/2452203/07/240 03/08/24 0531 WBC 11.2* 19.0* 13.0* HGB 12.2 12.9 11.1* HCT 36.8 40.2 34.0* MCV 77.8 80.7 79.1 PLT 462* 548* 453* Recent Labs 03/06/2452203/07/24 0140 03/08/24 0531 NA 132* 133* 130* K 4.5 4.0 3.7 CL 105 105 103 CO2 16* 15* 22 GLUCOSE 139* 117* 102* BUN 60* 55* 54* CREATININE 2.42* 2.35* 2.12* Assessment/ Hypotension (I95.9) MANJIT on CKD3b (N17.9, N18.32) NAGMA, acute (E87.21) Hyponatremia Mild bilateral hydronephrosis s/p bl stent placement (N13.2) Esophagitis Dysphagia Plan/ -BP improving on fludrocortisone 0.1 mg BID, c/w same -Metabolic acidosis resolved on isotonic bicarb gtt, discontinue after this bag -Na level trending down, check urine studies -Start on modest oral fluid restriction -Patient encouraged to increase po intake of solutes/protein -Scr slowly improving, baseline ~ 1.6-1.7, cont to trend -IV abx for UTI per primary: on ceftriaxone -Rest of management per primary team We will follow. Please do not hesitate to call with any questions or concerns. TRUDI Domingo, SHEA [facility] This note is not finalized until authorized by Attending physician. Cosigned by Pepito Steve MD at 03/08/2024 2:49 PM EDT Associated attestation - Pepito Steve MD - 03/08/2024 2:49 PM EDT Notes reviewed and plan discussed with the PA. Agree with above note except Any variance is noted below. Pepito Steve MD [facility] [phone] * Jesse Do MD - 03/07/2024 9:31 AM EDT Hospitalist Progress Note 03/07/2024 Subjective: Admit Date: 03/04/2024 PCP: Priyanka Smith Room#: Endo Pool/NONE BRIEF HOSPITAL COURSE: Eren is a 63 y.o. 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 Urology placed b/l ureteral stent 03/05. CT with incidentally esophageal thickening. GI has evaluated, status post EGD, shows severe candidiasis esophagitis with no bleeding, recommends to change PPI to IV 40 mg twice daily for now, consider Diflucan, repeat upper endoscopy in 8 weeks, discussed via secure chat Neurology following, EEG normal, MRI brain negative, MRA head/neck shows moderate tortuosity of upper ICA's with S shaped close, otherwise no acute abnormality, echo shows ejection fraction 60%, no AED unless patient with clinical seizure activity, signed off Interval History: No acute overnight changes Patient is seen and examined Patient is comfortably resting in her bed without in any acute distress She is concerned about hypotension which may trigger seizures, nephrology consulted Family is at bedside Sodium 133, creatinine 2.35, stable, WBC 19, likely reactive Case and plan of care discussed with patient and bedside nurse. All questions answered NPO diet with enteral medications 24HR INTAKE/OUTPUT: No intake or output data in the 24 hours ending 03/07/24 0931 Past Medical History: Past Medical History: Diagnosis Date Arthritis Cancer (CMS/HCC) (HCC) Disease of thyroid gland LABS: CBC: Recent Labs 03/05/24 0400 03/06/24 0523 03/07/24 0140 WBC 12.4* 11.2* 19.0* RBC 4.87 4.73 4.98 HGB 12.3 12.2 12.9 HCT 38.2 36.8 40.2 MCV 78.4 77.8 80.7 RDW 15.3* 15.2* 15.4* PLT 466* 462* 548* BMP: Recent Labs 03/05/24 0400 03/06/24 0503/07/24 0140 NA 133* 132* 133* K 4.2 4.5 4.0 CL 102 105 105 CO2 17* 16* 15* BUN 60* 60* 55* CREATININE 2.67* 2.42* 2.35* GLUCOSE 120* 139* 117* CALCIUM 11.3* 10.7* 10.6* ANIONGAP 14* 11 13 LIVER PROFILE: Recent Labs 03/04/24 1828 AST 27 ALT 17 BILITOT 0.5 ALKPHOS 96 PROT 7.7 PT/INR: No results for input(s): PROTIME, INR in the last 72 hours. CARDIAC ENZYMES: No results for input(s): TROPONINI in the last 72 hours. Procalcitonin: No results found for: PROCAL COVID-19 PCR: No results for input(s): COVID19 in the last 72 hours. Objective: Vitals: BP 106/74 Pulse 100 Temp 36.1 C (97 F) (Temporal) Resp 18 Ht 5' 5 (1.651 m) Wt 178 lb (80.7 kg) SpO2 97% BMI 29.62 kg/m Pulse Ox: SpO2 Av.4 % Min: 96 % Max: 100 % Supplemental O2: Physical Exam HENT: Head: Normocephalic. Nose: Nose normal. Mouth/Throat: Mouth: Mucous membranes are moist. Eyes: Extraocular Movements: Extraocular movements intact. Conjunctiva/sclera: Conjunctivae normal. Cardiovascular: Rate and Rhythm: Regular rhythm. Tachycardia present. Pulmonary: Effort: Pulmonary effort is normal. Breath sounds: Normal breath sounds. Abdominal: Palpations: Abdomen is soft. Musculoskeletal: General: Normal range of motion. Cervical back: Normal range of motion. Skin: General: Skin is warm. Neurological: General: No focal deficit present. Mental Status: She is alert and oriented to person, place, and time. Comments: tremor Psychiatric: Mood and Affect: Mood normal. Behavior: Behavior normal. Medications: Scheduled PRN [Transfer Hold] amitriptyline, 50 mg, Oral, Nightly [Held by provider] aspirin, 81 mg, Oral, Daily [Transfer Hold] Calcium Carb-Cholecalciferol, 1 tablet, Oral, BID [Transfer Hold] cefTRIAXone, 1,000 mg, IntraVENous, q24h [Transfer Hold] fludrocortisone, 0.1 mg, Oral, BID [Transfer Hold] heparin, 5,000 Units, SubCUTAneous, 3 times per day [Transfer Hold] influenza, 0.5 mL, IntraMUSCular, Once [Transfer Hold] levothyroxine, 100 mcg, Oral, qAM AC [Transfer Hold] melatonin, 3 mg, Oral, Nightly [Held by provider] mycophenolate, 1,000 mg, Oral, q AM [Held by provider] mycophenolate, 500 mg, Oral, qPM [Transfer Hold] pantoprazole, 40 mg, Oral, BID AC [Transfer Hold] predniSONE, 5 mg, Oral, Daily [Transfer Hold] sodium chloride 0.9%, 5-40 mL, IntraVENous, q12h PRN medications: [Transfer Hold] acetaminophen OR [Transfer Hold] acetaminophen, [Transfer Hold] naloxone, [Transfer Hold] ondansetron ODT OR [Transfer Hold] ondansetron, [Transfer Hold] polyethylene glycol (PEG) 3350, [Transfer Hold] sodium chloride, [Transfer Hold] sodium chloride 0.9%, [Transfer Hold] sucralfate Continuous Assessment Data: (CAT1) Reviewed 3 or more notes from different specialty or health system (each=1). (LOW: 2x CAT1 or independent historian MOD: 3x CAT1 or 1x CAT3 EXTENSIVE: 3x CAT1 and 1x CAT3) Acute, acute on chronic, unstable/uncontrolled chronic problems/diagnoses: UTI sepsis -improving B/l hydroureteronephrosis MANJIT on CKD3a Concern for seizure Recurrent falls Dysphagia Esophageal dysmotility Concern for esophagitis Nephrolithiasis s/p stent Hypotension Stable chronic problems affecting care, new non-acute diagnoses: Hyponatremia Chronic interstitial cystitis ILD/NSIP- cellcept being held in setting of infection Hypothyroidism Pre DM2 Tremors Hx tardive dyskinesia Drug induced parkinsonism Plan As a result of the above findings & factors, the following mgmt was pursued: - Urology evaluated and is s/p b/l ureteral stent with OP plan for bilateral ureteroscopy with laser lithotripsy in 1-2 weeks with bilateral ureteral stent exchange - GI evaluated, s/p EGD on 03/07 report as above - Neurology, recommendations noted as above, signed off - TTE shows ejection fraction of 60% -PT/OT consulted - monitor on telemetry - continue abx follow urine culture - am labs, replace lytes prn - PT/OT/CM/SW - delirium precautions: - DVT prophylaxis: enoxaparin and encourage ambulation Advance Directive: Full Code Anticipated Discharge - Date - 1-2 days - Location -TBD - Pending the following -clinical course Total time spent (which include face to face and non face to face encounters) : 37 minutes Extended Emergency Contact Information Primary Emergency Contact: Shelton Merchant Mobile Relation: Son Preferred language: Bahamian Printed [employer] Photographer needed? No Secondary Emergency Contact: Michael Merchant Mobile Relation: Significant Other Preferred language: Bahamian Printed [employer] Photographer needed? No Jesse Do MD Division of Hospitalist Medicine [facility] * Danni Castellon, [employer]PL[employer]MENT SERVICES DIRECTOR - 03/07/2024 7:44 AM EDT NEUROLOGY FOLLOW UP NOTE - Neurology Inpatient Service Patient Name: Eren Merchant Patient : 1960 Acct: [id number] Date of Admission: 03/04/2024 Room/Bed: [facility] A PCP: Priyanka Smith 03/07/2024 Subjective: The patient is 63 y.o. female -- who is being seen for a follow visit re: seizure like activity. 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 Patient has had two recent episodes which prompted her transfer to [facility] for further workup. On 02/26/24, patient was talking to her dad on the phone. The next thing she remembers is lying on the ground. She believes she had LOC but does not know duration. Estimates less than one minute. She had another episode while at the rologist's office on 03/03/24. She walked up to call center receptionist desk, all of a sudden both arms started shaking, she felt weak, and next thing she knew she was on the ground. Witnesses stated patient had full body shaking. No acute overnight events. Review of systems: General: No reported chills, no fever, no obesity. HEENT: No reported headache, no head injury. No reported eye pain or eye congestion. No reported ear pain or ear congestion. No reported nasal congestion or nosebleed. No reported throat congestion or infection. Neck: No reported neck pain. No reported neck stiffness. Respiratory: No reported wheezing and no reported shortness of breath. Cardiac: No reported chest pain and no reported palpitations. Gastrointestinal: No reported nausea, vomiting, abdominal pain and, no reported diarrhea. Musculoskeletal: No reported arthralgia and, no reported low back pain. Endocrine: No reported thyroid disease. No reported type 1 or type 2 diabetes mellitus. Psychiatry: No reported anxiety and no reported depression. Neurological: Reports alteration in mental state. No reported weakness in extremities. No reported speech deficit. Reports seizure like activity. No reported tongue bite or loss of bowel/bladder control. No reported stroke. No reported visual changes. No reported vertigo. No reported hearing loss. No reported gait or ambulatory decline. Past medical History, surgical history, family history and social history were reviewed with the patient/care provider and were reviewed in the chart. Only the available information is documented below. Thank you. Past Medical History: Past Medical History: Diagnosis Date Arthritis Cancer (CMS/HCC) (HCC) Disease of thyroid gland Past Surgical History: Past Surgical History: Procedure Laterality Date BACK SURGERY CHOLECYSTECTOMY COLON SURGERY THYMECTOMY stated per patient, for cancer removal Family History: No family history on file. Social History: TOBACCO: reports that she has never smoked. She has never used smokeless tobacco. ETOH: reports no history of alcohol use. RECREATIONAL DRUG USE: Social History Substance and Sexual Activity Drug Use Never The patient's medications and allergies were reviewed and the available information is documented below. Thank you. Allergies: Azithromycin and Seasonal Home Medications: Prior to Admission medications Medication Sig Start Date End Date Taking? Authorizing Provider Calcium Carb-Cholecalciferol 600-10 MG-MCG tablet Take 1 tablet by mouth in the morning and 1 tablet in the evening. 02/25/23 Yes Historical ProviderMD ondansetron (Zofran) 4 MG tablet Take 4 mg by mouth every 8 hours as needed for nausea or vomiting.New prescription, unsure of times or dose Yes Historical Provider, amitriptyline (Elavil) 75 MG tablet Take 75 mg by mouth Nightly. AVS from 03/03 from [facility] with Dr. Benitez states: discontinue the elavil for now - we will taper it down. Take 50 mg 4-5 days, then take 25 mg for 4-5 days then stop. Historical Provider, Apoaequorin (Prevagen) 10 MG capsule Take 10 mg by mouth daily. Historical Provider, aspirin 81 MG EC tablet Take 81 mg by mouth in the morning. Historical Provider, biotin 5000 MCG capsule Take 5,000 mcg by mouth daily. OTC per patient Historical Provider, levothyroxine (Synthroid, Levoxyl) 75 MCG tablet Take 75 mcg by mouth every morning (before breakfast). Historical Provider, mycophenolate (Cellcept) 500 MG tablet Take 1,000 mg by mouth 2 times daily. 1000 mg in morning [id number] at night per patient Historical Provider, predniSONE (Deltasone) 5 MG tablet Take 5 mg by mouth daily. Historical Provider, Calcium Carbonate-Vitamin D 500-5 MG-MCG tablet Take 5 mg by mouth in the morning and 5 mg in the evening. 03/04/24 Historical Provider, Current Hospital Medications: Current Facility-Administered Medications: acetaminophen (Tylenol) tablet 650 mg, 650 mg, Oral, q6h PRN OR acetaminophen (Tylenol) suppository 650 mg, 650 mg, Rectal, q6h PRN, Jay Black MD amitriptyline (Elavil) tablet 50 mg, 50 mg, Oral, Nightly, Jay Black MD, 50 mg at 03/06/242157 [Held by provider] aspirin EC tablet 81 mg, 81 mg, Oral, Daily, Jay Black MD Calcium Carb-Cholecalciferol 500-5 MG-MCG per tablet 1 tablet, 1 tablet, Oral, BID, Jay Black MD, 1 tablet at 03/06/242157 cefTRIAXone (Rocephin) 1,000 mg in sodium chloride 0.9 % 50 mL IVPB Mini-Bag Plus, 1,000 mg, IntraVENous, q24h, Jay Black MD, Last Rate: 100 mL/hr at 03/07/24 0640, 1,000 mg at 03/07/24639 fludrocortisone (Florinef) tablet 0.1 mg, 0.1 mg, Oral, BID, Jay Black MD, 0.1 mg at 03/06/242157 heparin injection 5,000 Units, 5,000 Units, SubCUTAneous, 3 times per day, Jay Black MD, 5,000Units at 03/07/24 06 influenza vaccine A&B surf ant adjuvanted (Fluad) HIGH-DOSE injection 0.5 mL, 0.5 mL, IntraMUSCular, Once, Jay Black MD levothyroxine (Synthroid, Levoxyl) tablet 100 mcg, 100 mcg, Oral, qAM AC, Jay Black MD, 100 mcg at 03/07/24 06 melatonin tablet 3 mg, 3 mg, Oral, Nightly, Jay Black MD [Held by provider] mycophenolate (Cellcept) capsule 1,000 mg, 1,000 mg, Oral, q AM, Maurilio Groves MD [Held by provider] mycophenolate (Cellcept) capsule 500 mg, 500 mg, Oral, qPM, Maurilio Groves MD naloxone (Narcan) injection 0.4 mg, 0.4 mg, IntraVENous, q5 min PRN, Jay Black MD ondansetron ODT (Zofran-ODT) disintegrating tablet 4 mg, 4 mg, Oral, q8h PRN OR ondansetron (Zofran) injection 4 mg, 4 mg, IntraVENous, q6h PRN, Jay Black MD pantoprazole (ProtoNix) EC tablet 40 mg, 40 mg, Oral, BID AC, Jay Black MD, 40 mg at 03/07/24 0638 polyethylene glycol (PEG) 3350 (Miralax) packet 17 g, 17 g, Oral, Daily PRN, Jay Black MD predniSONE (Deltasone) tablet 5 mg, 5 mg, Oral, Daily, Jay Black MD, 5 mg at 03/06/24 0811 sodium chloride 0.9 % infusion, 5-250 mL/hr, IntraVENous, PRN, Jay Black MD sodium chloride 0.9% (NS) flush 5-40 mL, 5-40 mL, IntraVENous, q12h, Jay Black MD, 10 mL at 03/07/24 0245 sodium chloride 0.9% (NS) flush 5-40 mL, 5-40 mL, IntraVENous, PRN, Jay Black MD sucralfate (Carafate) tablet 1 g, 1 g, Oral, 4x daily PRN, Jay Black MD Continuous Infusions: VITAL Signs: Patient Vitals for the past 24 hrs: BP Temp Temp src Pulse Resp SpO2 03/07/24 0738 106/74 (!) 35.7 C (96.3 F) Temporal 101 17 98 % 03/07/24 0433 107/78 (!) 35.7 C (96.3 F) Temporal 98 18 96 % 03/07/24 0044 101/71 36 C (96.8 F) Temporal 103 12 96 % 03/06/249 112/74 36.4 C (97.5 F) Temporal 109 20 98 % 03/06/24 1903 129/96 36.1 C (97 F) Temporal 112 18 100 % 03/06/24 1705 118/83 36.3 C (97.4 F) Temporal 111 19 97 % 03/06/24 1320 123/77 (!) 35.9 C (96.6 F) Temporal 108 18 97 % 03/06/24 0928 111/74 36.4 C (97.6 F) Temporal 111 17 97 % Physical Examination: General Exam: Constitutional: The patient is not obese. HEENT: Head is normocephalic and atraumatic. No eye congestion or eye infection. No ear infection or ear congestion. No nasal congestion or nasal infection. No throat infection or congestion. Neck: Supple, short, no bruits-bilaterally. Chest: CTA - Bilaterally, no wheezing. Abdomen: Soft, non-tender, bowel sounds are positive. Heart: S1, S2, RRR. Extremities: No cyanosis, no clubbing, and no edema. Neurological Exam: Dexterity: The patient is RIGHT handed. Mental Status: Alert, Awake, Oriented x 4, Normal Speech and intact comprehension - 3/3 repetition and recall. Follows 1-3 step commands. Cranial Nerves: CN-II, CN-III, CN-IV, CN-V, CN-, CN-VII, CN-VIII, CN-IX, CN-X, CN-XI and, CN-XII are within normal limits bilaterally. Motor: Bulk = Symmetric and within normal limits bilaterally. Tone = Symmetric and within normal limits bilaterally. Strength = 5+/5 in all 4 extremities. DTRs = 2+ throughout. Plantar = Down-going bilaterally. Abnormal movements = None. Opposition = Normal in both upper extremities. Pronator Drift = No pronator drift on the RIGHT and, no pronator drift on the LEFT side. Sensory: Light touch, pinprick and vibration exams are within normal limits. Coordination: Finger to nose is normal on the right side and, on the left side. Heel to jones is normal on the right side and, on the left side. Rapid alternation movements are normal on the right side and, on the left side. Gait: Deferred secondary to fall risk. Romberg: Deferred secondary to fall risk. NIHSS score: N/A. Results: Labs: Last 24hrs Recent Results (from the past 24 hours) Transthoracic echocardiogram (TTE) complete with contrast, bubble, strain, and 3D PRN Collection Time: 03/06/24 10:09 AM Result Value Ref Range Fractional Shortening 2D 36 28 - 44 % LVIDd Index 2.07 cm/m2 LVIDs Index 1.33 cm/m2 LV RWT Ratio 0.41 LV Mass 2D 89.7 67 - 162 g LV Mass 2D Index 47.7 43 - 95 g/m2 MV E/A 0.64 E/E' Ratio (Averaged) 4.83 E/E' Lateral 5.43 E/E' Septal 4.22 LA Volume Index BP 11 (A) 16 - 34 ml/m2 LA Volume Index A/L 12 16 - 34 mL/m2 LVOT Stroke Volume Index 23.8 mL/m2 LVOT Area 3.5 cm2 LA Volume Index 2C 10 (A) 16 - 34 mL/m2 LA Volume Index 4C 12 (A) 16 - 34 mL/m2 Ao Root Index 1.81 cm/m2 Ascending Aorta Index 1.81 cm/m2 Aortic Sinus Valsalva 3.4 cm Aortic Sinus Valsalva Index 1.81 cm/m2 Sinotubular Junction 2.5 cm EF BP 60 55 - 100 % Est. RA Pressure 3 mmHg RVSP 30 mmHg IVSd 0.8 0.6 - 0.9 cm LVIDd 3.9 3.9 - 5.3 cm LVIDs 2.5 cm LVOT Diameter 2.1 cm LVPWd 0.8 0.6 - 0.9 cm Global Longitudinal Strain -17.6 % Global Longitudinal Strain -17.5 % Global Longitudinal Strain -21.6 % Global Longitudinal Strain -18.9 % LVOT Cardiac Output 4.7 liter/minute LVOT Peak Gradient 3 mmHg LVOT Mean Gradient 1 mmHg LVOT SV 44.7 ml LVOT Peak Velocity 0.9 m/s LVOT VTI 12.9 cm RV Mid Dimension 2.5 cm RV Basal Dimension 2.7 cm RV Free Wall Peak S' 17 cm/s LA Volume A/L 23 mL LA Volume 2C 19 (A) 22 - 52 mL LA Volume 4C 22 22 - 52 mL LA Volume BP 21 (A) 22 - 52 mL RA Area 4C 14.5 mL RA Area 4C 14.4 mL MV A Velocity 0.59 m/s MV E Wave Deceleration Time 105.3 ms MV E Velocity 0.38 m/s LV E' Lateral Velocity 7 cm/s LV E' Septal Velocity 9 cm/s TAPSE 1.0 (A) >=1.7 cm TR Peak Gradient 27 mmHg TR Max Velocity 2.59 m/s Ascending Aorta 3.4 cm IVC Diameter 1.6 cm Aortic Root 3.4 cm CBC auto differential Collection Time: 03/07/24 1:40 AM Result Value Ref Range Auto WBC 19.0 (H) 3.6 - 10.7 10*3/uL RBC 4.98 3.80 - 5.20 10*6/uL Hemoglobin 12.9 11.7 - 16.0 g/dL Hematocrit 40.2 35.0 - 47.0 % MCV 80.7 77.0 - 99.0 fL MCH 25.9 (L) 26.0 - 34.0 pg MCHC 32.1 30.5 - 36.0 % RDW 15.4 (H) 11.5 - 15.0 % Platelets 548 (H) 140 - 440 10*3/uL MPV 11.3 9.0 - 12.7 fL Basic metabolic panel Collection Time: 03/07/24 1:40 AM Result Value Ref Range SODIUM 133 (L) 135 - 145 mmol/L POTASSIUM 4.0 3.5 - 5.1 mmol/L CHLORIDE 105 98 - 107 mmol/L CARBON DIOXIDE 15 (L) 22 - 30 mmol/L UREA NITROGEN 55 (H) 7 - 17 mg/dL CREATININE 2.35 (H) 0.52 - 1.04 mg/dL GLUCOSE 117 (H) 70 - 100 mg/dL CALCIUM 10.6 (H) 8.4 - 10.4 mg/dL ANION GAP 13 3 - 13 mmol/L eGFR 22.5 (L) >60.0 mL/min/1.73m*2 MANUAL DIFFERENTIAL (CELLAVISION) Collection Time: 03/07/24 1:40 AM Result Value Ref Range RBC Morphology abnormal Anisocytosis Slight (A) (none) Poikilocytes Moderate (A) (none) Macrocytes Slight (A) (none) Microcytes Slight (A) (none) Polychromasia Slight (A) (none) Camilla Cells Moderate (A) (none) Acanthocytes Rare (A) (none) Neutrophils % 75 38 - 82 % Bands % 6 (H) <=0 % Lymphocytes % 13 (L) 15 - 45 % Monocytes % 5 5 - 13 % Basophils % 1 0 - 2 % Myelocytes % 1 (H) <=0 % Absolute Neutrophil Count 15.4 (H) 1.8 - 7.5 10*3/uL Bands Absolute 1.1 (H) <=0.0 10*3/uL Lymphocytes Absolute 2.5 1.0 - 4.3 10*3/uL Monocytes Absolute 1.0 (H) 0.0 - 0.9 10*3/uL Basophils Absolute 0.2 0.0 - 0.2 10*3/uL Myelocytes Absolute 0.2 (H) <=0.0 10*3/uL Neutrophils Manual 76 Lymphocytes Manual 13 Monocytes Manual 5 Eosinophils Manual Basophils Manual 1 Bands Manual 6 Metamyelocytes Manual Myelocytes Manual 1 Promyelocytes Manual Blasts Manual Atypical Lymphocytes Manual Unclassified Cells, Manual Since admission: Recent Labs 03/04/24 1828 ALKPHOS 96 ALT 17 AST 27 BILITOT 0.5 Stroke Specific Labs: TSH: Lab Results Component Value Date TSH 3.641 03/05/2024 Radiology Personal review: MRI Brain wo contrast 03/06/24 1. Negative unenhanced MR scan of the brain except for minimal T2 hyperintensities of left frontal lobe probably due to minimal microangiopathic change. MRA Head/Neck wo contrast 03/06/24 1. Negative MR angiogram of the intracranial vessels. 2. Limited quality MR angiogram of the extracranial carotid and vertebral arteries shows no definite significant stenosis with moderate tortuosity upper ICA's with S-shaped curves. CT Head w/o contrast 03/04/24 ([facility]) Per report: no acute intracranial abn MRI Brain w/wo contrast 07/08/18 No acute intracranial findings. No intracranial mass or pathologic enhancement. Minimal sequela of chronic microvascular ischemia. CUS 01/02/19 RIGHT SIDE Internal carotid artery: 0-19% stenosis. Vertebral artery: Patent and antegrade flow noted. LEFT SIDE Internal carotid artery: 0-19% stenosis. Tortuous vessel at distal . Vertebral artery: Patent and antegrade flow noted. Neurophysiology Results: EEG: Routine EEG 03/06/24 This routine EEG with video is within normal limits for the awake and sleep states. No abnormal slowing, interictal epileptiform activity, or seizures are observed. EMG/NCS: N/A. ASSESSMENT / PLAN / SUGGESTIONS : Assessment: Loss of consciousness/Altered mental status episodes - patient has occasional dizziness and more recent tremor and tardive dyskinesia. Recent episodes occurred in the setting of hypotension, UTI, MANJIT, hyponatremia. LOC episode - concern for syncope >seizure Episode of abnormal body movements: concern for nonepileptic event Complicated UTI/Abnormal CT A/P findings - history of chronic interstitial cystitis. Urology following. On Ceftriaxone Recommendations: -CT head (per outside report) negative for acute abnormalities -MRI brain negative for acute abnormalities -MRA head/neck negative for acute abnormalities, noted moderate tortuosity upper ICA's with S-shaped curves -Echo completed, EF 60%, normal wall motion, no evidence of PFO noted -Orthostatics pending -TSH WNL -No AED unless patient with clinical seizure activity -Maintain seizure precautions for now Disposition/Discharge issues: No further neurology workup needed. Neurology service will sign off. Please call with any questionsor concerns. Thank you. 35 minutes of my independent time was spent preparing to see the patient, obtaining/reviewing separately obtained history, completing an appropriate medical examination of the patient, ordering medications/tests/procedures, documenting clinical information on the EMR, and/or coordinating care. An ad ditional 10 minutes was spent discussing assessment/plan with Dr. Cruz. Patient seen and discussed with Dr. Cruz. * Becca Monaco - 03/06/2024 12:32 PM EDT Nutrition rescreen completed. Chart reviewed. Patient to be monitored and followed by the diet quality assurance/r&d lab technician. ALEE Agustin * HAILE Dinh CNP - 03/06/2024 12:21 PM EDT Brief Neurology Update: Patient with MRI brain and MRA head/neck pending. Routine EEG pending. Echo pending. 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 LOC/AMS episodes -Patient has occasional dizziness and more recent tremor and tardive dyskinesia -Recent episodes occurred in the setting of hypotension, UTI, MANJIT, hyponatremia -LOC episode: concern for syncope > seizure -Episode of abnormal body movements: concern for nonepileptic event -CT head (per outside report) negative for acute abn -MRI brain/MRAs pending -TTE pending -Routine EEG pending -Orthostatics -TSH WNL -No AED unless clinical seizure activity and/or abnormal neurologic testing -Maintain sz precautions Complicated UTI/abnormal CT A/P findings -Hx of chronic interstitial cystitis -Urology following here -On cefriaxone Neurology service will make further recommendations after reviewing MRI/MRA and EEG. Plan discussed with Dr. Cruz. * Antony Awad DO - 03/06/2024 10:34 AM EDT Hospitalist Progress Note 03/06/2024 Subjective: Admit Date: 03/04/2024 PCP: Priyanka Smith Room#: [id number] BRIEF HOSPITAL COURSE: Eren is a 63 y.o. 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 Urology placed b/l ureteral stent 03/05. CT with incidentally esophageal thickening. GI has evaluatedplan for EGD 02/15. Interval History: Seen at bedside. Waiting on remote to change bladder stimulator to MRI mode. Adult diet Regular 24HR INTAKE/OUTPUT: Intake/Output Summary (Last 24 hours) at 03/06/2024 1035 Last data filed at 03/06/2024 0339 Gross per 24 hour Intake 400 ml Output -- Net 400 ml Past Medical History: Past Medical History: Diagnosis Date Arthritis Cancer (CMS/HCC) (HCC) Disease of thyroid gland LABS: CBC: Recent Labs 03/04/24182703/05/24 0400 03/06/24 0523 WBC 15.3* 12.4* 11.2* RBC 4.66 4.87 4.73 HGB 12.0 12.3 12.2 HCT 37.2 38.2 36.8 MCV 79.8 78.4 77.8 RDW 15.2* 15.3* 15.2* PLT 421 466* 462* BMP: Recent Labs 03/04/24182703/05/24 0400 03/06/24 0523 NA 131* 133* 132* K 4.1 4.2 4.5 CL 104 102 105 CO2 18* 17* 16* BUN 58* 60* 60* CREATININE 2.46* 2.67* 2.42* GLUCOSE 111* 120* 139* CALCIUM 10.5* 11.3* 10.7* ANIONGAP 9 14* 11 LIVER PROFILE: Recent Labs 03/04/241827 AST 27 ALT 17 BILITOT 0.5 ALKPHOS 96 PROT 7.7 PT/INR: No results for input(s): PROTIME, INR in the last 72 hours. CARDIAC ENZYMES: No results for input(s): TROPONINI in the last 72 hours. Procalcitonin: No results found for: PROCAL COVID-19 PCR: No results for input(s): COVID19 in the last 72 hours. Objective: Vitals: BP 111/74 Pulse 111 Temp 36.4 C (97.6 F) (Temporal) Resp 17 Ht 5' 5 (1.651 m) Wt178 lb (80.7 kg) SpO2 97% BMI 29.62 kg/m Pulse Ox: SpO2 Av % Min: 94 % Max: 100 % Supplemental O2: Physical Exam HENT: Head: Normocephalic. Nose: Nose normal. Mouth/Throat: Mouth: Mucous membranes are moist. Eyes: Extraocular Movements: Extraocular movements intact. Conjunctiva/sclera: Conjunctivae normal. Cardiovascular: Rate and Rhythm: Regular rhythm. Tachycardia present. Pulmonary: Effort: Pulmonary effort is normal. Breath sounds: Normal breath sounds. Abdominal: Palpations: Abdomen is soft. Musculoskeletal: General: Normal range of motion. Cervical back: Normal range of motion. Skin: General: Skin is warm. Neurological: General: No focal deficit present. Mental Status: She is alert and oriented to person, place, and time. Comments: tremor Psychiatric: Mood and Affect: Mood normal. Behavior: Behavior normal. Medications: Scheduled PRN amitriptyline, 50 mg, Oral, Nightly [Held by provider] aspirin, 81 mg, Oral, Daily Calcium Carb-Cholecalciferol, 1 tablet, Oral, BID cefTRIAXone, 1,000 mg, IntraVENous, q24h fludrocortisone, 0.1 mg, Oral, BID heparin, 5,000 Units, SubCUTAneous, 3 times per day influenza, 0.5 mL, IntraMUSCular, Once levothyroxine, 100 mcg, Oral, qAM AC melatonin, 3 mg, Oral, Nightly [Held by provider] mycophenolate, 1,000 mg, Oral, q AM [Held by provider] mycophenolate, 500 mg, Oral, qPM pantoprazole, 40 mg, Oral, BID AC predniSONE, 5 mg, Oral, Daily sodium chloride 0.9%, 5-40 mL, IntraVENous, q12h PRN medications: acetaminophen OR acetaminophen, naloxone, ondansetron ODT OR ondansetron, polyethylene glycol (PEG) 3350, sodium chloride, sodium chloride 0.9%, sucralfate Continuous Assessment Data: (CAT1) Reviewed 3 or more notes from different specialty or health system (each=1). (LOW: 2x CAT1 or independent historian MOD: 3x CAT1 or 1x CAT3 EXTENSIVE: 3x CAT1 and 1x CAT3) Acute, acute on chronic, unstable/uncontrolled chronic problems/diagnoses: UTI sepsis -improving B/l hydroureteronephrosis MANJIT on CKD3a Concern for seizure Recurrent falls Dysphagia Esophageal dysmotility Concern for esophagitis Nephrolithiasis s/p stent Stable chronic problems affecting care, new non-acute diagnoses: Hyponatremia Chronic interstitial cystitis ILD/NSIP- cellcept being held in setting of infection Hypothyroidism Pre DM2 Tremors Hx tardive dyskinesia Drug induced parkinsonism Plan As a result of the above findings & factors, the following mgmt was pursued: - Urology evaluated and is s/p b/l ureteral stent with OP plan for bilateral ureteroscopy with laser lithotripsy in 1-2 weeks with bilateral ureteral stent exchange - GI evaluated and plan on EGD 03/07 - NPO midnight - neurology plan for EEG and MRI - TTE has been done but waiting on read - monitor on telemetry - continue abx follow urine culture - am labs, replace lytes prn - PT/OT/CM/SW - delirium precautions: - DVT prophylaxis: enoxaparin and encourage ambulation Advance Directive: Full Code Anticipated Discharge - Date - 1-2 days - Location - - Pending the following - MRI, EEG, EGD Total time spent (which include face to face and non face to face encounters) : 40minutes Extended Emergency Contact Information Primary Emergency Contact: Shelton Merchant Mobile Relation: Son Preferred language: Bahamian Printed Circuit Photographer needed? No Secondary Emergency Contact: Michael Merchant Mobile Relation: Significant Other Preferred language: Bahamian [employer]ed [employer] Photographer needed? No Antony Awad DO Division of Hospitalist Medicine [facility] * Cecilia Barney PA-C - 03/06/2024 7:39 AM EDT Department of Internal Medicine Gastroenterology Progress Note SUBJECTIVE: GI following for dysphagia, abnormal CT. Patient with past medical history of CKD3, ILD/nonspecific interstitial pneumonia (on cellcept and prednisone), hypothyroidism, thymoma (resected 2018), immunosuppression and dysphagia transferred from OSH for UTI with sepsis, concern for ureteral malignancy, , hypotension and tachycardia. Found tohave hydronephrosis. Also with seizure like activity for which neurology is following. Plan for MRIs. On CT incidentally found to have esophageal thickening. Patient has been suffering from chronic dysphagia for years and states has dysmotility. 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 Patient has been treated with brad multiple times, EGD in 2020 with brad, manometry in 2020 significant for esophageal dysmotility. Plan for EGD once more stable re: urosepsis per consult note from the weekend team. Patient remains tachycardic in the 110s, afebrile. S/P cystoscopy and bilateral ureteral stent placement yesterday. To get MRIs today per neurology. Tolerating regular diet. Reports that Reglan was discontinued January 12 and since that time she has had dysphagia and odynophagia to solids and liquids. Medications Scheduled Meds: Current Facility-Administered Medications: acetaminophen (Tylenol) tablet 650 mg, 650 mg, Oral, q6h PRN OR acetaminophen (Tylenol) suppository 650 mg, 650 mg, Rectal, q6h PRN, Jay Black MD amitriptyline (Elavil) tablet 50 mg, 50 mg, Oral, Nightly, Jay Black MD, 50 mg at 03/05/242127 [Held by provider] aspirin EC tablet 81 mg, 81 mg, Oral, Daily, Jay Black MD Calcium Carb-Cholecalciferol 500-5 MG-MCG per tablet 1 tablet, 1 tablet, Oral, BID, Jay Black MD, 1 tablet at 03/05/242127 cefTRIAXone (Rocephin) 1,000 mg in sodium chloride 0.9 % 50 mL IVPB Mini-Bag Plus, 1,000 mg, IntraVENous, q24h, Jay Black MD, Stopped at 03/06/24550 fludrocortisone (Florinef) tablet 0.1 mg, 0.1 mg, Oral, BID, Jay Black MD, 0.1 mg at 03/05/242128 heparin injection 5,000 Units, 5,000 Units, SubCUTAneous, 3 times per day, Jay Black MD, 5,000Units at 03/06/24520 influenza vaccine A&B surf ant adjuvanted (Fluad) HIGH-DOSE injection 0.5 mL, 0.5 mL, IntraMUSCular, Once, Jay Black MD levothyroxine (Synthroid, Levoxyl) tablet 100 mcg, 100 mcg, Oral, qAM AC, Jay Black MD, 100 mcg at 03/06/24520 melatonin tablet 3 mg, 3 mg, Oral, Nightly, Jay Black MD [Held by provider] mycophenolate (Cellcept) capsule 1,000 mg, 1,000 mg, Oral, q AM, Maurilio Groves MD [Held by provider] mycophenolate (Cellcept) capsule 500 mg, 500 mg, Oral, qPM, Maurilio Groves MD naloxone (Narcan) injection 0.4 mg, 0.4 mg, IntraVENous, q5 min PRN, Jay Black MD ondansetron ODT (Zofran-ODT) disintegrating tablet 4 mg, 4 mg, Oral, q8h PRN OR ondansetron (Zofran) injection 4 mg, 4 mg, IntraVENous, q6h PRN, Jay Black MD pantoprazole (ProtoNix) EC tablet 40 mg, 40 mg, Oral, BID AC, Jay Black MD, 40 mg at 03/06/24 0521 polyethylene glycol (PEG) 3350 (Miralax) packet 17 g, 17 g, Oral, Daily PRN, Jay Black MD predniSONE (Deltasone) tablet 5 mg, 5 mg, Oral, Daily, Jay Black MD, 5 mg at 03/05/24 0815 sodium chloride 0.9 % infusion, 5-250 mL/hr, IntraVENous, PRN, Jay Black MD sodium chloride 0.9% (NS) flush 5-40 mL, 5-40 mL, IntraVENous, q12h, Jay Black MD, 10 mL at 03/06/24 0245 sodium chloride 0.9% (NS) flush 5-40 mL, 5-40 mL, IntraVENous, PRN, Jay Black MD sucralfate (Carafate) tablet 1 g, 1 g, Oral, 4x daily PRN, Jay Black MD OBJECTIVE VITALS: BP 130/85 (BP Location: Left arm, Patient Position: Lying) Pulse 111 Temp 36.2 C (97.2 F) (Temporal) Resp 16 Ht 5' 5 (1.651 m) Wt 178 lb (80.7 kg) SpO2 97% BMI 29.62 kg/m Average, Min, and Max for last24 hours Vitals: TEMPERATURE: Temp Av.1 C (96.9 F) Min: 35.8 C (96.4 F) Max: 36.2 C (97.2 F) RESPIRATIONS RANGE: Resp Av.6 Min: 16 Max: 18 PULSE RANGE: Pulse Av.8 Min: 104 Max: 112 BLOOD PRESSURE RANGE: Systolic (24hrs), Av , Min:84 , Max:139 ; Diastolic (24hrs), Av, Min:50, Max:94 PULSE OXIMETRY RANGE:SpO2 Av.1 % Min: 94 % Max: 100 % I/O last 3 completed shifts: In: 400 (5 mL/kg) [P.O.:150; I.V.:250 (3.1 mL/kg)] Out: - (0 mL/kg) Weight: 80.7 kg Constitutional: No acute distress. Well-nourished. Well hydrated. Tearful. Eyes: Pupils are equal and round; Conjunctiva are not injected; Sclera are non-icteric. ENT: Ears/nose without external abnormalities. Oral mucosa is pink and moist. Neck: No JVD. No thyromegaly. FROM. Respiratory: Clear to auscultation bilaterally without any added sounds. Effort is normal Heart: Regular, Normal S1 and S2. No murmur; No added sounds. Abdomen: Normal BS, soft, non-tender, non-distended; no hepatomegaly. Extremities/Skin: No LE edema; Skin warm to touch and well perfused. Musculoskeletal: Head - normocephalic. Neck - supple. MAEx4. Psychiatric: AAO x 3, answers appropriately, normal mood, normal affect. Non-focal. Data Recent blood work, radiologic study and endoscopic study were reviewed with the patient. CBC: Recent Labs 03/04/24 1828 03/05/24 0400 03/06/24 0523 WBC 15.3* 12.4* 11.2* RBC 4.66 4.87 4.73 HGB 12.0 12.3 12.2 HCT 37.2 38.2 36.8 MCV 79.8 78.4 77.8 MCH 25.8* 25.3* 25.8* MCHC 32.3 32.2 33.2 RDW 15.2* 15.3* 15.2* PLT 421 466* 462* MPV 10.3 10.3 10.3 CMP: Recent Labs 03/04/24 1828 03/05/24 0400 03/06/24 0523 NA 131* 133* 132* K 4.1 4.2 4.5 CL 104 102 105 CO2 18* 17* 16* BUN 58* 60* 60* CREATININE 2.46* 2.67* 2.42* GLUCOSE 111* 120* 139* CALCIUM 10.5* 11.3* 10.7* PROT 7.7 -- -- BILITOT 0.5 -- -- ALKPHOS 96 -- -- AST 27 -- -- ALT 17 -- -- Radiologic Review CT AP without contrast 03/05/24 FINDINGS: Exam quality: Limited for the evaluation of solid organs due to the lack of intravenous contrast and limited for evaluation of the gastrointestinal tract due to lack of oral contrast. Chest base: Atelectasis at the bases. No pleural fluid Liver: Normal size and contour. No identifiable lesion. Biliary tree: Normal caliber. Spleen: Normal. Adrenals: Normal. Pancreas: Unremarkable. Kidneys: No contour abnormality or focal renal lesion. Renal collecting systems: Nonobstructing calculus in the right lower pole measures 0.6 cm. No calculus on the left. Moderate bilateral hydronephrosis. The right ureter is only minimally distended anddifficult to follow into the urinary bladder. Some calcifications are present in the right side of the lower pelvis. The left ureter is moderately distended and a calcification focus on image 3:126 is probably an obstructing calculus measuring as large as 0.5 cm in transverse dimension. Free fluid: None. Retroperitoneal/mesenteric lymphadenopathy: None. Aorta: Normal caliber. Bowel: Normal caliber. Abdominal wall: Sacral stimulator device is present. Postoperative gas bubbles present within the subcutaneous soft tissues of the right mid abdominal wall, probably related to an injection site. No other abnormality within the abdominal wall. Bladder: No calculi or filling defects. Pelvic organs/viscera: No mass identified. Pelvic lymphadenopathy: None. Osseous structures: Minor anterior wedge deformity at the T12 level. There is a transitional S1 level. IMPRESSION: Bilateral hydronephrosis. Obstructing calculus in the left distal ureter. The right distal ureter is difficult to follow into the bladder. Endoscopic Review EGD 01/08/21 ([facility] Dr. Franklin) Findings: The examined duodenum was normal. The stomach was normal. A small hiatal hernia was present. White nummular lesions were noted in the middle third of the esophagus. Biopsies were taken with a cold forceps for histology to evaluate for EoE vs. brad esophagitis. Verification of patient identification for the specimen was done by the nurse and quality assurance/r&d lab technician using the patient's name, date and medical record number. The pathology specimen was placed into Bottle Number 1. Estimated blood loss was minimal. Impression: - Normal examined duodenum. - Normal stomach. - Small hiatal hernia. - White nummular lesions in esophageal mucosa. Recommendation: - Patient has a contact number available for emergencies. The signs and symptoms of potential delayed complications were discussed with the patient. Return to normal activities tomorrow. Written discharge instructions were provided to the patient. - Resume previous diet. - Continue present medications. - Await pathology results. ASSESSMENT AND PLAN Dysphagia/esophageal dysmotility- history of manometry and recurrent brad esophagitis, last EGD 2020 in [facility] Urosepsis Bilateral hydronephrosis/Left distal ureteral calculus- s/p cystoscopy and bilateral stent placement 03/05/24 MANJIT on CKD3 Seizure like activity Hyponatremia Drug induced parkinsonism/tardive dyskinesia- Reglan - Recommend EGD for dysphagia/rule out malignancy, timing TBD, tentatively plan for tomorrow, 03/07/24 - Ok for regular diet, NPO after midnight - Continue medical management and supportive care per primary team - Continue antibiotics per primary team - Continue Protonix 40 mg BID - GI to follow - Will need OP follow up with local GI (Dr. Cota [employer]), will send records prior to discharge Cosigned by Jennifer Sung MD at 03/07/2024 7:14 AM EDT * Antony Awad DO - 03/05/2024 10:05 AM EDT Hospitalist Progress Note 03/05/2024 Subjective: Admit Date: 03/04/2024 PCP: Priyanka Smith Room#: [id number] A BRIEF HOSPITAL COURSE: Eren is a 63 y.o. 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 CT with incidentally esophageal thickening. GI has evaluated. Interval History: Seen at bedside. Her son is present. No overnight issues. Case and plan discussed with patient and bedside nurse. All questions answered. Adult diet Regular 24HR INTAKE/OUTPUT: No intake or output data in the 24 hours ending 03/05/24 1005 Past Medical History: Past Medical History: Diagnosis Date Arthritis Cancer (CMS/HCC) (HCC) Disease of thyroid gland LABS: CBC: Recent Labs 03/04/24182703/05/24 0400 WBC 15.3* 12.4* RBC 4.66 4.87 HGB 12.0 12.3 HCT 37.2 38.2 MCV 79.8 78.4 RDW 15.2* 15.3* PLT 421 466* BMP: Recent Labs 03/04/24182703/05/24 0400 NA 131* 133* K 4.1 4.2 CL 104 102 CO2 18* 17* BUN 58* 60* CREATININE 2.46* 2.67* GLUCOSE 111* 120* CALCIUM 10.5* 11.3* ANIONGAP 9 14* LIVER PROFILE: Recent Labs 03/04/241827 AST 27 ALT 17 BILITOT 0.5 ALKPHOS 96 PROT 7.7 PT/INR: No results for input(s): PROTIME, INR in the last 72 hours. CARDIAC ENZYMES: No results for input(s): TROPONINI in the last 72 hours. Procalcitonin: No results found for: PROCAL COVID-19 PCR: No results for input(s): COVID19 in the last 72 hours. Objective: Vitals: BP 128/90 (BP Location: Left arm, Patient Position: Lying) Pulse 112 Temp 36.1 C (97 F)(Temporal) Resp 18 Ht 5' 5 (1.651 m) Wt 178 lb (80.7 kg) SpO2 98% BMI 29.62 kg/m Pulse Ox: SpO2 Av.4 % Min: 93 % Max: 98 % Supplemental O2: Physical Exam HENT: Head: Normocephalic. Nose: Nose normal. Mouth/Throat: Mouth: Mucous membranes are moist. Eyes: Extraocular Movements: Extraocular movements intact. Conjunctiva/sclera: Conjunctivae normal. Cardiovascular: Rate and Rhythm: Regular rhythm. Tachycardia present. Pulmonary: Effort: Pulmonary effort is normal. Breath sounds: Normal breath sounds. Abdominal: Palpations: Abdomen is soft. Musculoskeletal: General: Normal range of motion. Cervical back: Normal range of motion. Skin: General: Skin is warm. Neurological: General: No focal deficit present. Mental Status: She is alert and oriented to person, place, and time. Comments: tremor Psychiatric: Mood and Affect: Mood normal. Behavior: Behavior normal. Medications: Scheduled PRN amitriptyline, 50 mg, Oral, Nightly [Held by provider] aspirin, 81 mg, Oral, Daily Calcium Carb-Cholecalciferol, 1 tablet, Oral, BID cefTRIAXone, 1,000 mg, IntraVENous, q24h fludrocortisone, 0.1 mg, Oral, BID heparin, 5,000 Units, SubCUTAneous, 3 times per day influenza, 0.5 mL, IntraMUSCular, Once levothyroxine, 100 mcg, Oral, qAM AC melatonin, 3 mg, Oral, Nightly [Held by provider] mycophenolate, 1,000 mg, Oral, q AM [Held by provider] mycophenolate, 500 mg, Oral, qPM pantoprazole, 40 mg, Oral, BID AC predniSONE, 5 mg, Oral, Daily sodium chloride 0.9%, 5-40 mL, IntraVENous, q12h PRN medications: acetaminophen OR acetaminophen, ondansetron ODT OR ondansetron, polyethylene glycol (PEG) 3350, sodium chloride, sodium chloride 0.9%, sucralfate Continuous Assessment Data: (CAT1) Reviewed 3 or more notes from different specialty or health system (each=1). (LOW: 2x CAT1 or independent historian MOD: 3x CAT1 or 1x CAT3 EXTENSIVE: 3x CAT1 and 1x CAT3) Acute, acute on chronic, unstable/uncontrolled chronic problems/diagnoses: UTI sepsis B/l hydroureteronephrosis MANJIT on CKD3a Concern for seizure Recurrent falls Dysphagia Esophageal dysmotility Concern for esophagitis Stable chronic problems affecting care, new non-acute diagnoses: Hyponatremia Chronic interstitial cystitis ILD/NSIP- cellcept being held in setting of infection Hypothyroidism Pre DM2 Tremors Hx tardive dyskinesia Drug induced parkinsonism Plan As a result of the above findings & factors, the following mgmt was pursued: - Urology evaluated and plan for repeat CT a/p w/o IV contrast - GI evaluated and plan on EGD once hemodynamic improve - neurology to see - TTE pending - monitor on telemetry - continue abx - am labs, replace lytes prn - PT/OT/CM/SW - delirium precautions: - DVT prophylaxis: enoxaparin and encourage ambulation Advance Directive: Full Code Anticipated Discharge - Date - 2-3 days - Location - - Pending the following - clinical improvement Total time spent (which include face to face and non face to face encounters) : 50 minutes Extended Emergency Contact Information Primary Emergency Contact: ShondaShelton Mobile Relation: Son Preferred language: Bahamian Printed Circuit Photographer needed? No Secondary Emergency Contact: Michael Merchant Mobile Relation: Significant Other Preferred language: Bah[place]ian [employer] Photographer needed? No Antony Awad DO Division of Hospitalist Medicine Acute [facility] documented in this [facility]10-24-2024 NotePHYSICAL THERAPY [facility] Initial Evaluation Name/MRN: Eren Merchant ([id number]) Evaluation Date: 03/09/2024 Date of : 1960 Admission Date: 03/04/2024 2:14 PM Age: 63 y.o. Room/Bed: -6105/H-6105 A Discharge Recommendation: Home with assist PRN Equipment Needed: No Assessment IMPRESSION: PT Eval completed. She is currently Indep for bed mobility, transfers, ambulation without a device and stairs. Pt voiced no concerns for homegoing and reported she feels near her functional baseline. Reported she will have her S.O. to assist as needed. Recommend disch to home with assist PRN. No other acute PT needs at this time, will sign off. Admitting Diagnosis: Hydronephrosis. S/p bilateral stent placement 03/05/24 Prognosis: good Performance Deficits /Impairments: N/A Decision Making: Low Complexity Subjective Pt in the bed and agreeable to PT. Reported she has been going to the bathroom Indep and is hoping to return to home either today or tomorrow. Pain: Pt denies any current pain. Past Medical History: Past Medical History: Diagnosis Date Arthritis Cancer (CMS/HCC) ([facility]) Disease of thyroid gland Past Surgical History: Past Surgical History: Procedure Laterality Date BACK SURGERY CHOLECYSTECTOMY COLON SURGERY THYMECTOMY stated per patient, for cancer removal Admission Diagnosis: Patient Active Problem List Diagnosis Date Noted Acquired hypothyroidism 03/04/2024 Chronic interstitial cystitis 03/03/2024 Stage 3a chronic kidney disease ([facility]) 01/12/2023 NSIP (nonspecific interstitial pneumonitis) ([facility]) 10/30/2022 Esophageal dysmotility 07/31/2020 ILD (interstitial lung disease) ([facility]) 03/25/2020 Lung nodules 02/12/2020 Post-menopausal bleeding 11/25/2018 Hyponatremia 06/14/2018 Hydronephrosis with urinary obstruction due to ureteral calculus 03/04/2024 Medical Precautions: No active isolations Proper PPE donned/doffed in accordance with facility standards. Fall Risk: Neal Fall Risk Score: 40 (Medium Risk) Precautions/Restrictions: N/A Family/Caregiver Present: none Overall Cognitive Status: WNL Overall Orientation Status: Oriented x4 Vision: not assessed this session Hearing: normal Social/Functional History Patient admitted from home. 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 S.O. is retired and able to assist if needed. Prior Level of Function Prior Level of ADL Function: Independent Prior Level of Mobility: Independent; Device: None Prior Level of Transfers: Independent Objective Lower Extremity Assessment AROM: WNL PROM: Not assessed this session Strength: WFL 4+/5 knee extension and ankle DF Sensation: Not assessed this session Balance: Balance During Session: Posture: good Sitting - Static: Independent Sitting - Dynamic: Independent Standing - Static: Independent Standing - Dynamic: Independent Bed Mobility: Supine to sit: Independent Transfers Sit to stand: Independent Stand to sit: Independent Ambulation Ambulation 1 Assistive device(s) used: None Assist level: Independent Distance (ft): ~350 ft Quality of gait: No gait deviations, No LOB, denied dizziness, light headedness and SOB throughout. Stairs Stairs 1 Assistive device(s) used: None Assist level: Modified Independent # of steps: 12 Rails: left Additional factors: reciprocal going up, reciprocal going down Outcome Measures AM-PAC How much HELP from another person do you currently need Turning from your back to your side while in a flat bed without using bedrails?: None Moving from lying on your back to sitting on the side of a flat bed without using bedrails?: None Moving to and from a bed to a chair (including a wheelchair)?: None Standing up from a chair using your arms (wheelchair or bedside chair)?: None Walking in a hospital room?: None Stair climbing assessed?: Yes Climbing 3-5 steps with a railing?+: None AM-PAC Inpatient Mobility Raw Score : 24 AM-PAC Inpatient Mobility Raw Score (No Stairs) : 20 JH-HLM -HLM Score: Walked 250 ft or more (i.e. several laps on unit) Plan No skilled acute PT indicated at this time. Please reconsult should changes occur. Safety/Education Safety Safety Devices in place: call light within reach and left to go to the bathroom Indep. Restraints: No Education Education Given To: patient Education Provided: PT Role, PT Goals, Gait Training, Plan of Care, Precautions, Discharge Recommendations, and Benefits of Increasing Activity Education Method: Verbal and Demonstration Barriers to Learning: None Education Outcome: Verbalized Understanding Goals (more content not included)...[facility]10-24-2024 Note Hospitalist Progress Note 03/09/2024 Subjective: Admit Date: 03/04/2024 PCP: Priyanka Smith Room#: [id number] A BRIEF HOSPITAL COURSE: Eren is a 63 y.o. 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 Urology placed b/l ureteral stent 03/05. CT with incidentally esophageal thickening. GI has evaluated, status post EGD, shows severe candidiasis esophagitis with no bleeding, recommends to change PPI to IV 40 mg twice daily for now, consider Diflucan, repeat upper endoscopy in 8 weeks, discussed via secure chat Neurology following, EEG normal, MRI brain negative, MRA head/neck shows moderate tortuosity of upper ICA's with S shaped close, otherwise no acute abnormality, echo shows ejection fraction 60%, no AED unless patient with clinical seizure activity, signed off Urine culture from [employer] on 03/05 shows Proteus mirabilis Margaret Count 80,000-100,000 Proteus mirabilis: REACTION Ampicillin Islt MELVIN <=2 Ampicillin+Sulbac Islt MELVIN <=2 S ceFAZolin Islt MELVIN <=4 S Cefepime Islt MELVIN <=0.12 S cefTRIAXone Islt MELVIN <=0.25 S Ciprofloxacin Islt MELVIN <=0.25 S Gentamicin Islt MELVIN <=1 S levoFLOXacin Islt MELVIN <=0.12 S Nitrofurantoin Islt MELVIN 128 R Pip+Tazo Islt MELVIN <=4 S Tobramycin Islt MELVIN <=1 S TMP SMX Islt MELVIN <=20 S Nephrology following Interval History: No acute overnight changes Patient is seen and examined Patient is comfortably resting in her bed without in any acute distress, eating lunch, denies any new acute complaints Family is at bedside Sodium 132, creatinine 1.77, improving, WBC 13.8, stable Case and plan of care discussed with patient and bedside nurse. All questions answered Adult diet Regular 24HR INTAKE/OUTPUT: Intake/Output Summary (Last 24 hours) at 03/09/2024 0744 Last data filed at 03/08/2024 1055 Gross per 24 hour Intake 2088.5 ml Output -- Net 2088.5 ml Past Medical History: Past Medical History: Diagnosis Date Arthritis Cancer (CMS/HCC) (HCC) Disease of thyroid gland LABS: CBC: Recent Labs 03/07/24 0140 03/08/24 0531 03/09/24 0242 WBC 19.0* 13.0* 13.8* RBC 4.98 4.30 3.95 HGB 12.9 11.1* 10.0* HCT 40.2 34.0* 31.4* MCV 80.7 79.1 79.5 RDW 15.4* 15.4* 15.3* PLT 548* 453* 401 BMP: Recent Labs 03/07/24 0140 03/08/24 0531 03/09/24 0242 NA 133* 130* 132* K 4.0 3.7 3.6 CL 105 103 102 CO2 15* 22 26 BUN 55* 54* 40* CREATININE 2.35* 2.12* 1.77* GLUCOSE 117* 102* 124* CALCIUM 10.6* 10.0 9.4 ANIONGAP 13 6 4 LIVER PROFILE: No results for input(s): AST, ALT, BILITOT, ALKPHOS, PROT in the last 72 hours. No lab exists for component: LABALBU PT/INR: No results for input(s): PROTIME, INR in the last 72 hours. CARDIAC ENZYMES: No results for input(s): TROPONINI in the last 72 hours. Procalcitonin: No results found for: PROCAL COVID-19 PCR: No results for input(s): COVID19 in the last 72 hours. Objective: Vitals: BP 103/74 Pulse 87 Temp 36 ?C (96.8 ?F) (Temporal) Resp 18 Ht 5' 5 (1.651 m) Wt 178 lb (80.7 kg) SpO2 96% BMI 29.62 kg/m? Pulse Ox: SpO2 Av.2 % Min: 95 % Max: 100 % Supplemental O2: Physical Exam HENT: Head: Normocephalic. Nose: Nose normal. Mouth/Throat: Mouth: Mucous membranes are moist. Eyes: Extraocular Movements: Extraocular movements intact. Conjunctiva/sclera: Conjunctivae normal. Cardiovascular: Rate and Rhythm: Regular rhythm. Tachycardia present. Pulmonary: Effort: Pulmonary effort is normal. Breath sounds: Normal breath sounds. Abdominal: Palpations: Abdomen is soft. Musculoskeletal: General: Normal range of motion. Cervical back: Normal range of motion. Skin: General: Skin is warm. Neurological: General: No focal deficit present. Mental Status: She is alert and oriented to person, place, and time. Comments: tremor Psychiatric: Mood and Affect: Mood normal. Behavior: Behavior normal. Medications: Scheduled PRN amitriptyline, 50 mg, Oral, Nightly [Held by provider] aspirin, 81 mg, Oral, Daily Calcium Carb-Cholecalciferol, 1 tablet, Oral, BID cefTRIAXone, 2,000 mg, IntraVENous, q24h fluconazole, 200 mg, Oral, Daily fludrocortisone, 0.1 mg, Oral, BID heparin, 5,000 Units, SubCUTAneous, 3 times per day influenza, 0.5 mL, IntraMUSCular, Once levothyroxine, 100 mcg, Oral, qAM AC melatonin, 3 mg, Oral, Nightly [Held by provider] mycophenolate, 1,000 mg, Oral, q AM [Held by provider] mycophenolate, 500 mg, Oral, qPM pantoprazole (ProtoNix) 40 mg in sodium chloride (PF) 0.9 % 10 mL injection, 40 mg, IntraVENous, q12h predniSONE, 5 mg, Oral, Daily sodium chloride 0.9%, 5-4 (more content not included)...[facility] 03-08-2024 Plan of care note* Care Plan - Neelima Peng RN - 03/08/2024 10:46 PM EDT Problem: Pain - Adult Goal: Verbalizes/displays adequate comfort level or baseline comfort level 03/08/20242245 by Neelima Peng RN Outcome: Progressing 03/08/20241910 by Neelima Peng RN Outcome: Progressing Problem: Safety - Adult Goal: Free from fall injury 03/08/20242245 by Neelima Peng RN Outcome: Progressing 03/08/20241910 by Neelima Peng RN Outcome: Progressing [id number] Miscellaneous Notes* Care Plan - Neelima Peng RN - 03/08/2024 10:46 PM EDT Problem: Pain - Adult Goal: Verbalizes/displays adequate comfort level or baseline comfort level 03/08/20242245 by Neelima Peng RN Outcome: Progressing 03/08/20241910 by Neelima Peng RN Outcome: Progressing Problem: Safety - Adult Goal: Free from fall injury 03/08/20242245 by Neelima Peng RN Outcome: Progressing 03/08/2024 1911 by Neelima Peng RN Outcome: Progressing * Care Plan - Neelima Peng RN - 03/08/2024 7:11 PM EDT The patient is Moderately Stable - Low risk of patient condition declining or worsening The patient's goals for the shift include admission and pain control The clinical goals for the shift include admission * Care Coordination - Lola Howe RN - 03/08/2024 8:21 AM EDT Case Management Progress Note: Patient remains on H6 s/p b/l uretal stent insertion 03/05/2024. Regular diet noted. Neuro following. EEG negative. MRI/MRA negative. EGD demonstrated brad esophagitis, Diflucan noted. Nephrology/Urology following. IV Rocephin noted. Urine, no growth final. Discharge Plan: TBD. TCC to assist and follow as needed. at8:26 AM * Care Plan - Teri Alejo RN - 03/08/2024 5:15 AM EDT Problem: Pain - Adult Goal: Verbalizes/displays adequate comfort level or baseline comfort level Outcome: Progressing Problem: Safety - Adult Goal: Free from fall injury Outcome: Progressing Problem: Discharge Planning Goal: Discharge to home or other facility with appropriate resources Outcome: Progressing Problem: Chronic Conditions and Co-morbidities Goal: Patient's chronic conditions and co-morbidity symptoms are monitored and maintained or improved Outcome: Progressing * Care Plan - Trina Crawley RN - 03/07/2024 4:41 PM EDT Problem: Pain - Adult Goal: Verbalizes/displays adequate comfort level or baseline comfort level Outcome: Progressing Problem: Safety - Adult Goal: Free from fall injury Outcome: Progressing Problem: Discharge Planning Goal: Discharge to home or other facility with appropriate resources Outcome: Progressing Problem: Chronic Conditions and Co-morbidities Goal: Patient's chronic conditions and co-morbidity symptoms are monitored and maintained or improved Outcome: Progressing * Post-Procedure Note - Lisette Dunbar RN - 03/07/2024 10:24 AM EDT POST ENDOSCOPY PROCEDURE TRANSFER REPORT Physician: Procedure completed: EGD Specimens obtained: antrum bx Medications administered: see anesthesia note Findings: see physician's note Complications: n/a Please call the Main Endoscopy Dept at [phone] for questions. Report called to JUAN Recio on H6 * Care Coordination - Lola Howe RN - 03/07/2024 8:01 AM EDT Case Management Progress Note: Patient remains on H6 s/p b/l uretal stent insertion 03/05/2024. Regular diet noted. Neuro following. EEG negative. MRI/MRA pending. GI following, plan for EGD d/t dysphagia. Urology following. IV Rocephin noted. Urine, no growth final. Discharge Plan: TBD. TCC to assist and follow as needed. * Op Note - Jennifer Sung MD - 03/07/2024 7:56 AM EDT Endoscopy Center- [facility] Patient Name: Eren Merchant Procedure Date: 03/07/2024 7:56 AM Gender: Female Date of : 1960 Age: 63 Admit Type: Inpatient Note Status: Finalized Endoscopist: Jennifer Sung MD, [id number] Procedure: Upper GI endoscopy Indications: Epigastric abdominal pain, Dysphagia, Abnormal CT of the GI tract Findings: Severe brad esophagitis with no bleeding was found in entire esophagus. LA Grade D (one or more mucosal breaks involving at least 75% of esophageal circumference) esophagitis with no bleeding was found in the lower third of the esophagus. Localized mild inflammation characterized by congestion (edema), erosions and erythema was found in the gastric body, at the incisura, in the gastric antrum, in the prepyloric region of the stomach and at the pylorus. Biopsies were taken with a cold forceps for histology. The examined duodenum was normal. Impression: - Severe candidiasis esophagitis with no bleeding. - LA Grade D acute and erosive esophagitis with no bleeding. - Gastritis. Biopsied. - Normal examined duodenum. Recommendation: - Return patient to hospital [facility] for ongoing care. - Soft diet. - Continue present medications. Change PPI to IV 40 mg BID for now before discharge then PO. Consider Diflucan ( if no significant drug interaction) of Nystain for brad esophagitis . - Await pathology results. - Repeat upper endoscopy in 8 weeks to evaluate the response to therapy. - The findings and recommendations were discussed with the patient. Fu with GI as outpatient. - The findings and recommendations were discussed with the referring physician. Referring MD: Pcp None, Pcp None Medicines: Monitored Anesthesia Care Procedure: Pre-Anesthesia Assessment: - Prior to the procedure, a History and Physical was performed, and patient medications and allergies were reviewed. The patient's tolerance of previous anesthesia was also reviewed. The risks and benefits of the procedure and the sedation options and risks were discussed with the patient. All questions were answered, and informed consent was obtained. Prior Anticoagulants: The patient has taken no anticoagulant or antiplatelet agents except for aspirin. ASA Grade Assessment: III - A patient with severe systemic disease. After reviewing the risks and benefits, the patient was deemed in satisfactory condition to undergo the procedure. After obtaining informed consent, the endoscope was passed under direct vision. Throughout the procedure, the patient's blood pressure, pulse, and oxygen saturations were monitored continuously. The Endoscope was introduced through the mouth, and advanced to the third part of duodenum. The upper GI endoscopy was accomplished without difficulty. The patient tolerated the procedure well. Complications: No immediate complications. Procedure Code(s): --- Professional --- 75201, Esophagogastroduodenoscopy, flexible, transoral; with biopsy, single or multiple --- Technical --- 57422, Esophagogastroduodenoscopy, flexible, transoral; with biopsy, single or multiple Diagnosis Code(s): --- Professional --- B37.81, Candidal esophagitis K20.80, Other esophagitis without bleeding K29.70, Gastritis, unspecified, without bleeding R10.13, Epigastric pain R13.10, Dysphagia, unspecified R93.3, Abnormal findings on diagnostic imaging of other parts of digestive tract --- Technical --- B37.81, Candidal esophagitis K20.80, Other esophagitis without bleeding K29.70, Gastritis, unspecified, without bleeding R10.13, Epigastric pain R13.10, Dysphagia, unspecified R93.3, Abnormal findings on diagnostic imaging of other parts of digestive tract CPT copyright 2021 [employer]. All rights reserved. The codes documented in this report are preliminary and upon drum stock clerk review may be revised to meet current compliance requirements. Jennifer Sung MD 03/07/2024 10:28:23 AM This report has been signed electronically. Number of Addenda: 0 Note Initiated On: 03/07/2024 7:56 AM * Care Plan - Teri Alejo RN - 03/07/2024 5:13 AM EDT Problem: Pain - Adult Goal: Verbalizes/displays adequate comfort level or baseline comfort level Outcome: Progressing Problem: Safety - Adult Goal: Free from fall injury Outcome: Progressing Problem: Discharge Planning Goal: Discharge to home or other facility with appropriate resources Outcome: Progressing Problem: Chronic Conditions and Co-morbidities Goal: Patient's chronic conditions and co-morbidity symptoms are monitored and maintained or improved Outcome: Progressing * Care Coordination - Lola Howe RN - 03/06/2024 2:01 PM EDT Care Managment Initial Assessment Date: 03/06/2024 Patient Name: Eren Merchant : 1960 Patient Information Source of Information: Patient Cognition/Language: WFL - Within Functional Limits Permission given to speak with patient parts representative/caregiver as indicated: Yes Confirmation of Payer with patient/family: Yes Payer Name: [employer] Medicare [place]: No Confirmation of Primary Care Physician: Confirmed PCP Name: Priyanka Luis Seen in last 2 years?: Yes Primary Caregiver: Self If assistance needed, confirmed caregiver ready, willing and able to care for patient at discharge:Yes Confirmed with: chris Rodriguez other Living Arrangements Current Residence: House Number of Floors 2 Number of Entry Steps: 1 Bed/Bath Levels: Separate floors Facility: Facility Name: Plan to Return: Lives with: Spouse/significant other Support Systems: Spouse/significant other, Parent Activities of Daily Living Ambulation: Independent Bathing/Dressing: Independent Elimination/Continence/Toileting: Independent Feeding: Independent Who Assists with Activities of Daily Living: Instrumental Activities of Daily Living Prescription Coverage: Yes Pharmacy Used: [facility] [place] [employer] Medication Management: Independent Transportation/Shopping: Independent Transportation Mode: Car Needs Assistance with Transportation at Discharge: No Meal Preparation: Independent Laundry/Cleaning: Independent Finances/Bill Paying: Independent Communication: Independent Types of Care Services/Equipment Utilized Care Services: Dialysis Type: Durable Medical Equipment: Patient's Goal/Discharge Plan Patient expects to be discharged to: TBD Discharge Planning Actions: Continue to follow Patient's Choice Rights and [employer] and Collaborative Relationships Disclosed as Indicated for Post-Acute Care: Interdisciplinary Team Engagement: Social Work Referral for: Additional Information: Patient admitted to H6 s/p b/l uretal stent insertion 03/05/2024. Regular diet noted. EEG noted this am. Order for MRI brain, head and neck noted. Neurology consult noted. Tele noted. IV Rocephin noted. Urine cx pending. Met with pt at bedside, introduced self and explained role of TCC. Pt has insurance with RX coverage, active with PCP. Patient lives with Michael, keron other. DCP TBD. TCC to assist and follow as needed. Lola Howe RN * Care Plan - Trina Crawley RN - 03/06/2024 8:17 AM EDT Problem: Pain - Adult Goal: Verbalizes/displays adequate comfort level or baseline comfort level Outcome: Progressing Problem: Safety - Adult Goal: Free from fall injury Outcome: Progressing Problem: Discharge Planning Goal: Discharge to home or other facility with appropriate resources Outcome: Progressing Problem: Chronic Conditions and Co-morbidities Goal: Patient's chronic conditions and co-morbidity symptoms are monitored and maintained or improved Outcome: Progressing * Care Plan - Teri Alejo RN - 03/06/2024 5:25 AM EDT Problem: Pain - Adult Goal: Verbalizes/displays adequate comfort level or baseline comfort level Outcome: Progressing Problem: Safety - Adult Goal: Free from fall injury Outcome: Progressing Problem: Discharge Planning Goal: Discharge to home or other facility with appropriate resources Outcome: Progressing Problem: Chronic Conditions and Co-morbidities Goal: Patient's chronic conditions and co-morbidity symptoms are monitored and maintained or improved Outcome: Progressing * Perioperative Nursing Note - Reji Lopez RN - 03/05/2024 6:54 PM EDT Pt ambulated to restroom with RN assist x 1, voided twice adequately. Returned to bed and transporttaking pt to room. * Perioperative Nursing Note - Reji Lopez RN - 03/05/2024 6:41 PM EDT Pt doing well, awake and drinking water, no complaints, attempted bedpan but was unable, pt states she can wait to try the restroom in a little while. Report called and in for transport. * Op Note - Katherine Bowen MD - 03/05/2024 5:06 PM EDT Images from the original note were not included. Katherine Bowen MD 03/05/2024 at 5:49 PM UROLOGY OPERATIVE REPORT PATIENT NAME: Eren Merchant DATE OF : 1960 TODAY'S DATE: 03/05/2024 PreOp Dx:: bilateral ureteral calculus with uti PostOp Dx: Same Operation : cystoscopy bilateral stent placement Surgeon Katherine Bowen MD Assist Jhony Gómez Anesthesia:general lma Ebl: Drains 6fr X 24cmJJ bilateral Dowd , Specimen: Complications None; patient tolerated the procedure well. Findings: INDICATIONS: Eren Merchant , is a 63 y.o. female who presents with [facility]. [facility] Repeat image shows bilateral hydronephrosis and bilateral ureteral calculus. She has low bp. She presents for bilateral stent placement.. Eren Merchantpresents for bilateral stent placement. The risks benefits and alternatives were explained and the patient wishes to proceed. PROCEDURE: Eren Merchant Was brought to the operating room. Thorough time out was performed and everyone present was in agreement. Patient was placed on OR table. Anesthesia and lines were maintained by the anesthesia team. Patient was placed in the dorsal lithotomy position. Prepped and draped in usual fashion. Pressure points were padded. A cystourethroscope was inserted through the urethra and the bladder was inspected. There were no masses or lesions. Left Then a 0.035 Brilliant wire was advanced to the level of the kidney. A 6 fr x 24cmJJ stent was advancedover the wire through the cystoscope under fluoroscopic visualization. Once in position the wire was removed. A good curl was noted in the kidney and the bladder. Right Then a 0.035 Brilliant wire was advanced to the level of the kidney. A 6fr x 24cmJJ stent was advanced over the wire through the cystoscope under fluoroscopic visualization. Once in position the wire wasremoved. A good curl was noted in the kidney and the bladder. The bladder was emptied and patient awoken from anesthesia. Katherine Bowen MD 03/05/24 5:49 PM * Care Plan - Teri Alejo RN - 03/05/2024 5:26 AM EDT Problem: Pain - Adult Goal: Verbalizes/displays adequate comfort level or baseline comfort level Outcome: Progressing Problem: Safety - Adult Goal: Free from fall injury Outcome: Progressing Problem: Discharge Planning Goal: Discharge to home or other facility with appropriate resources Outcome: Progressing Problem: Chronic Conditions and Co-morbidities Goal: Patient's chronic conditions and co-morbidity symptoms are monitored and maintained or improved Outcome: Progressing documented in this [facility]10-23-2024 Plan of care note* Care Plan - Neelima Peng RN - 03/08/2024 7:11 PM EDT The patient is Moderately Stable - Low risk of patient condition declining or worsening The patient's goals for the shift include admission and pain control The clinical goals for the shift include admission [id number] Nurse Note* Karen Garcia RN - 03/08/2024 2:07 PM EDT Pt asked if she could go to the bathroom by herself. I advised that she is still a high fall risk and we want her to please use the call light for help to get up to the bathroom. Pt verbalized understanding. [facility] [id number] Nurse Note* Karen Garcia RN - 03/08/2024 2:07 PM EDT Pt asked if she could go to the bathroom by herself. I advised that she is still a high fall risk and we want her to please use the call light for help to get up to the bathroom. Pt verbalized understanding. * Lala Souza RN - 03/05/2024 5:29 PM EDT MRI screening complete. Remote for bladder stimulator requested to be brought in alone with cards for [employer] and page makeup system operator. Patient said they could be brought in on Wednesday. * Bertha Zavala RN - 03/05/2024 3:24 AM EDT Patient had orthostatic vitals taken, blood pressure standing was 83/55. Rapid notified, told to reach out to doctor. Doctor notified and no further orders placed. 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 Patient taken to H6 in stable condition. documented in this [facility]10-23-2024 Note* Care Coordination - Lola Howe RN - 03/08/2024 8:21 AM EDT Case Management Progress Note: Patient remains on H6 s/p b/l uretal stent insertion 03/05/2024. Regular diet noted. Neuro following. EEG negative. MRI/MRA negative. EGD demonstrated brad esophagitis, Diflucan noted. Nephrology/Urology following. IV Rocephin noted. Urine, no growth final. Discharge Plan: TBD. TCC to assist and follow as needed. at8:26 AM [facility] [id number] Note* Care Coordination - Lola Howe RN - 03/08/2024 8:21 AM EDT Case Management Progress Note: Patient remains on H6 s/p b/l uretal stent insertion 03/05/2024. Regular diet noted. Neuro following. EEG negative. MRI/MRA negative. EGD demonstrated brad esophagitis, Diflucan noted. Nephrology/Urology following. IV Rocephin noted. Urine, no growth final. Discharge Plan: TBD. TCC to assist and follow as needed. at8:26 AM [facility]10-23-2024 NoteCase Management Progress Note: Patient remains on H6 s/p b/l uretal stent insertion 03/05/2024. Regular diet noted. Neuro following. EEG negative. MRI/MRA negative. EGD demonstrated brad esophagitis, Diflucan noted. Nephrology/Urology following. IV Rocephin noted. Urine, no growth final. Discharge Plan: TBD. TCC to assist and follow as needed. [facility]10-23-2024 Note Hospitalist Progress Note 03/08/2024 Subjective: Admit Date: 03/04/2024 PCP: Priyanka Smith Room#: [id number] A BRIEF HOSPITAL COURSE: Eren is a 63 y.o. 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 Urology placed b/l ureteral stent 03/05. CT with incidentally esophageal thickening. GI has evaluated, status post EGD, shows severe candidiasis esophagitis with no bleeding, recommends to change PPI to IV 40 mg twice daily for now, consider Diflucan, repeat upper endoscopy in 8 weeks, discussed via secure chat Neurology following, EEG normal, MRI brain negative, MRA head/neck shows moderate tortuosity of upper ICA's with S shaped close, otherwise no acute abnormality, echo shows ejection fraction 60%, no AED unless patient with clinical seizure activity, signed off Urine culture from [employer] on 03/05 shows Proteus mirabilis Margaret Count 80,000-100,000 Proteus mirabilis: REACTION Ampicillin Islt MELVIN <=2 Ampicillin+Sulbac Islt MELVIN <=2 S ceFAZolin Islt MELVIN <=4 S Cefepime Islt MELVIN <=0.12 S cefTRIAXone Islt MELVIN <=0.25 S Ciprofloxacin Islt MELVIN <=0.25 S Gentamicin Islt MELVIN <=1 S levoFLOXacin Islt MELVIN <=0.12 S Nitrofurantoin Islt MELVIN 128 R Pip+Tazo Islt MELVIN <=4 S Tobramycin Islt MELVIN <=1 S TMP SMX Islt MELVIN <=20 S Nephrology seen the patient, appreciated Interval History: No acute overnight changes Patient is seen and examined She is comfortably sitting in her bedside chair without in any acute distress She denies any new acute complaints Family is at bedside Discussed with antibiotic stewardship team her urine culture from [employer] on 03/05 shows Proteus mirabilis Margaret Count 80,000-100,000 Proteus mirabilis: REACTION Ampicillin Islt MELVIN <=2 Ampicillin+Sulbac Islt MELVIN <=2 S ceFAZolin Islt MELVIN <=4 S Cefepime Islt MELVIN <=0.12 S cefTRIAXone Islt MELVIN <=0.25 S Ciprofloxacin Islt MELVIN <=0.25 S Gentamicin Islt MELVIN <=1 S levoFLOXacin Islt MELVIN <=0.12 S Nitrofurantoin Islt MELVIN 128 R Pip+Tazo Islt MELVIN <=4 S Tobramycin Islt MELVIN <=1 S TMP SMX Islt MELVIN <=20 S Antibiotic stewardship team recommends to restart on ceftriaxone with 2 g every 24 hours, patient requires antibiotics stable 03/15, likely oral antibiotics upon discharge Family is at bedside Sodium 130, creatinine 2.12, improving, WBC 13, improving Case and plan of care discussed with patient and bedside nurse. All questions answered Adult diet Regular 24HR INTAKE/OUTPUT: Intake/Output Summary (Last 24 hours) at 03/08/2024 0811 Last data filed at 03/07/2024 1640 Gross per 24 hour Intake 1150 ml Output -- Net 1150 ml Past Medical History: Past Medical History: Diagnosis Date Arthritis Cancer (CMS/HCC) (HCC) Disease of thyroid gland LABS: CBC: Recent Labs 03/06/24 0523 03/07/24 0140 03/08/24 0531 WBC 11.2* 19.0* 13.0* RBC 4.73 4.98 4.30 HGB 12.2 12.9 11.1* HCT 36.8 40.2 34.0* MCV 77.8 80.7 79.1 RDW 15.2* 15.4* 15.4* PLT 462* 548* 453* BMP: Recent Labs 03/06/24 0523 03/07/24 0140 03/08/24 0531 NA 132* 133* 130* K 4.5 4.0 3.7 CL 105 105 103 CO2 16* 15* 22 BUN 60* 55* 54* CREATININE 2.42* 2.35* 2.12* GLUCOSE 139* 117* 102* CALCIUM 10.7* 10.6* 10.0 ANIONGAP 11 13 6 LIVER PROFILE: No results for input(s): AST, ALT, BILITOT, ALKPHOS, PROT in the last 72 hours. No lab exists for component: LABALBU PT/INR: No results for input(s): PROTIME, INR in the last 72 hours. CARDIAC ENZYMES: No results for input(s): TROPONINI in the last 72 hours. Procalcitonin: No results found for: PROCAL COVID-19 PCR: No results for input(s): COVID19 in the last 72 hours. Objective: Vitals: BP 133/94 Pulse 98 Temp (!) 35.8 ?C (96.5 ?F) (Temporal) Resp 18 Ht 5' 5 (1.651 m) Wt 178 lb (80.7 kg) SpO2 98% BMI 29.62 kg/m? Pulse Ox: SpO2 Av.5 % Min: 94 % Max: 100 % Supplemental O2: Physical Exam HENT: Head: Normocephalic. Nose: Nose normal. Mouth/Throat: Mouth: Mucous membranes are moist. Eyes: Extraocular Movements: Extraocular movements intact. Conjunctiva/sclera: Conjunctivae normal. Cardiovascular: Rate and Rhythm: Regular rhythm. Tachycardia present. Pulmonary: Effort: Pulmonary effort is normal. Breath sounds: Normal breath sounds. Abdominal: Palpations: Abdomen is soft. Musculoskeletal: General: Normal range of motion. Cervical back: Normal range of motion. Skin: General: Skin is warm. Neurological: General: No focal deficit present. Mental Status: She is alert and oriented to person, place, and time. Comments: tremor Psychiatric: Mood and Affect: Mood normal. Behavior: Behavior sallie (more content not included)...[facility] 03-08-2024 Plan of care note* Care Plan - Teri Alejo RN - 03/08/2024 5:15 AM EDT Problem: Pain - Adult Goal: Verbalizes/displays adequate comfort level or baseline comfort level Outcome: Progressing Problem: Safety - Adult Goal: Free from fall injury Outcome: Progressing Problem: Discharge Planning Goal: Discharge to home or other facility with appropriate resources Outcome: Progressing Problem: Chronic Conditions and Co-morbidities Goal: Patient's chronic conditions and co-morbidity symptoms are monitored and maintained or improved Outcome: Progressing [facility] [id number] Plan of care note* Care Plan - Trina Crawley RN - 03/07/2024 4:41 PM EDT Problem: Pain - Adult Goal: Verbalizes/displays adequate comfort level or baseline comfort level Outcome: Progressing Problem: Safety - Adult Goal: Free from fall injury Outcome: Progressing Problem: Discharge Planning Goal: Discharge to home or other facility with appropriate resources Outcome: Progressing Problem: Chronic Conditions and Co-morbidities Goal: Patient's chronic conditions and co-morbidity symptoms are monitored and maintained or improved Outcome: Progressing [facility] [id number] Consult note* Pepito Steve MD - 03/07/2024 1:47 PM EDT Associated Order(s): IP CONSULT TO NEPHROLOGY [facility] Nephrology Consultation Note Reason for consultation: Hypotension 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: Outside hospital transfer History of Presenting Illness Patient is a 63 y.o. female with PMHx noted below who presented [facility] ED [facility] Patient presented for ml of seizure-like activity. Reported 2episodes of syncope. At outside ED patient was tachycardic to 120's. CTA chest ordered and was negative for PE, however it demonstrated nodules within R lobe of thyroid gland necessitating OP ultrasound. Also demonstrated circumferential wall thickening of mid and distal esophagus concerning for esophagitis, but unable to exclude neoplastic process. UA concerning for infection, pt started on rocephin and culture sent out. CT AP wo contrast ordered to r/o infected urolithiasis - this demonstrated BL hydroureteronephrosis associated with filling defect within R proximal ureter with concern for possible neoplastic process, BL ureteral wall thickening suggestive of urethritis, and bladder wall thickening with adjacent stranding c/w cystitis. Given concern for malignancy, [facility] [facility] medical admission for further workup. Prior to her transfer, ED started pton fludrocortisone 0.1mg PO BID. Patient admitted for further evaluation and management. Nephrology is consulted for evaluation and management of hypotension. Most recent blood pressure 107/70. SBP has ranged from 70's to 110's this admission. Not on any antihypertensive medications prior to admission. TSH wnl at 3.641 No cortisol levels available for review. Patient follows with nephrology under Regulo Mendoza MD with [facility]. Scr is currently 2.35. As high as 2.46 on admission. Patient's baseline creatinine appears to be 1.6-1.7, last scr 1.75 on 01/31/2024 with eGFR of 32. Patient appears to have progressive CKD with scr ranging from 1.1-1.3 back in 2022. Home medications include prednisone 5 mg/day and Cellcept 500 mg BID (tx for ILD/nonspecific interstitial pneumonia). Patient is not on Andrea inhibitors or ARB. No diuretics. Patient did have recent exposure to IV contrast while in outside ED on 03/03. Past Medical/Surgical History Past Medical History: Diagnosis Date Arthritis Cancer (CMS/HCC) (HCC) Disease of thyroid gland Past Surgical History: Procedure Laterality Date BACK SURGERY CHOLECYSTECTOMY COLON SURGERY THYMECTOMY stated per patient, for cancer removal Review of Systems All 12 systems reviewed and are negative except for what is mentioned in the HPI. Allergies Azithromycin and Seasonal Family History No family history on file. 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[employer] Financial Resource Strain: High Risk (03/26/2020) Received from [facility] Overall Financial Resource Strain (CARDIA) Difficulty of Paying Living Expenses: Very hard Food Insecurity: No Food Insecurity (03/26/2020) Received from [facility] Hunger Vital Sign Worried About Running Out of Food in the Last Year: Never true Ran Out of Food in the Last Year: Never true Transportation Needs: No Transportation Needs (03/26/2020) Received from [facility] PRAPARE - Transportation Lack of Transportation (Medical): No Lack of Transportation (Non-Medical): No Physical Activity: Inactive (06/22/2023) Received from [facility] Exercise Vital Sign Days of Exercise per Week: 0 days Minutes of Exercise per Session: 0 min Stress: No Stress Concern Present (09/03/2019) Received from [facility] [place] [employer] - Occupational Stress Questionnaire Feeling of Stress : Not at all Social Connections: Unknown (03/01/2020) Received from [facility] Social Connection and Isolation Panel [NHANES] Frequency of Communication with Friends and Family: Three times a week Frequency of Social Gatherings with Friends and Family: Three times a week Intimate Partner Violence: Not At Risk (03/04/2024) Humiliation, Afraid, Rape, and Kick questionnaire Fear of Current or Ex-Partner: No Emotionally Abused: No Physically Abused: No Sexually Abused: No Medications Medications Prior to Admission Medication Sig Dispense Refill Last Dose/Taking Calcium Carb-Cholecalciferol 600-10 MG-MCG tablet Take 1 tablet by mouth in the morning and 1 tablet in the evening. Taking ondansetron (Zofran) 4 MG tablet Take 4 mg by mouth every 8 hours as needed for nausea or vomiting.New prescription, unsure of times or dose 03/04/2024 amitriptyline (Elavil) 75 MG tablet Take 75 mg by mouth Nightly. AVS from 03/03 from [facility] with Dr. Benitez states: discontinue the elavil for now - we will taper it down. Take 50 mg 4-5 days, then take 25 mg for 4-5 days then stop. Apoaequorin (Prevagen) 10 MG capsule Take 10 mg by mouth daily. aspirin 81 MG EC tablet Take 81 mg by mouth in the morning. biotin 5000 MCG capsule Take 5,000 mcg by mouth daily. OTC per patient levothyroxine (Synthroid, Levoxyl) 75 MCG tablet Take 75 mcg by mouth every morning (before breakfast). mycophenolate (Cellcept) 500 MG tablet Take 1,000 mg by mouth 2 times daily. 1000 mg in morning [id number] at night per patient predniSONE (Deltasone) 5 MG tablet Take 5 mg by mouth daily. Current Medications: amitriptyline, 50 mg, Oral, Nightly [Held by provider] aspirin, 81 mg, Oral, Daily Calcium Carb-Cholecalciferol, 1 tablet, Oral, BID cefTRIAXone, 1,000 mg, IntraVENous, q24h fludrocortisone, 0.1 mg, Oral, BID heparin, 5,000 Units, SubCUTAneous, 3 times per day influenza, 0.5 mL, IntraMUSCular, Once levothyroxine, 100 mcg, Oral, qAM AC melatonin, 3 mg, Oral, Nightly [Held by provider] mycophenolate, 1,000 mg, Oral, q AM [Held by provider] mycophenolate, 500 mg, Oral, qPM pantoprazole, 40 mg, Oral, BID AC predniSONE, 5 mg, Oral, Daily sodium chloride 0.9%, 5-40 mL, IntraVENous, q12h Continuous Infusions: PRN Meds:PRN medications: acetaminophen OR acetaminophen, naloxone, ondansetron ODT OR ondansetron, polyethylene glycol (PEG) 3350, sodium chloride, sodium chloride 0.9%, sucralfate Physical Exam Vitals: 03/07/24 1031 03/07/24 1036 03/07/24 1043 03/07/24 1117 BP: 103/69 99/64 97/67 107/70 BP Location: Patient Position: Pulse: 90 91 92 97 Resp: 18 18 18 16 Temp: 36.1 C (96.9 F) TempSrc: Temporal SpO2: 100% 100% 100% 94% Weight: Height: Input / Output: 24 HR: Intake/Output Summary (Last 24 hours) at 03/07/2024 1347 Last data filed at 03/07/2024 1012 Gross per 24 hour Intake 150 ml Output -- Net 150 ml IV Intake: P.O. (mL): 150 mL Dowd: General: cooperative to history and physical exam. Mouth: mucus membrane moist Neck: Supple, no jvd Chest: B/L equal air entry, no crackles, no accessory muscles usage. CV: s1s2 +ve Abdomen: NT, not distended, soft bowel sounds present Extremities: no peripheral edema, no joint swelling. Skin: Warm, no rash Neurological: Oriented times three Data Recent Labs 03/05/24 0400 03/06/24 0523 03/07/24 0140 WBC 12.4* 11.2* 19.0* HGB 12.3 12.2 12.9 HCT 38.2 36.8 40.2 MCV 78.4 77.8 80.7 PLT 466* 462* 548* Recent Labs 03/05/24 0400 03/06/24 0523 03/07/24 0140 NA 133* 132* 133* K 4.2 4.5 4.0 CL 102 105 105 CO2 17* 16* 15* GLUCOSE 120* 139* 117* BUN 60* 60* 55* CREATININE 2.67* 2.42* 2.35* Albumin: No components found for: LABALBU Calcium: Lab Results Component Value Date CALCIUM 10.6 (H) 03/07/2024 Imaging: reviewed Renal US 03/04/2024: FINDINGS: Right kidney measures 10.3 x 4.9 x 4.3 cm. Renal cortical echotexture within normal limits. Mild dilatation of collecting system. No intrarenal calculi or abnormal perinephric fluid collection. Left kidney measures 9.4 x 4.9 x 4.3 cm. Renal cortical echotexture within normal limits. Mild dilatation of collecting system. No intrarenal calculi or abnormal perinephric fluid collection. Urinary bladder empty and not adequately visualized or evaluated. IMPRESSION: 1. Mild bilateral hydronephrosis. Assessment 63 y.o. female with Hypotension (I95.9) MANJIT on CKD3b (N17.9, N18.32) NAGMA, acute (E87.21) Hyponatremia Mild bilateral hydronephrosis s/p bl stent placement (N13.2) Esophagitis RECOMMENDATIONS: -The pt has chronic steroid exposure. Has risk to develop adrenal insufficiency. -C/w fludrocortisone 0.1 mg BID. -Metabolic acidosis noted, start on isotonic bicarb gtt at 100 ml/hr for now. -if pt remains hypotensive despite ivf, might require higher dose steroids given acute illness. -Check urine studies if na levels drop further despite ivf overnight. -Monitor K levels. Might need replacement w resolution of acidosis. -IV abx for UTI per primary: on ceftriaxone -Urology following, patient s/p bilateral ureteral stent insertion 03/05/2024 -GI following. -Neurology signed off, workup for seizure-like activity negative -Awaiting orthostatic vitals -Rest of management per primary team [id number] Reason for consultation: Hypotension 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: Outside hospital transfer History of Presenting Illness Patient is a 63 y.o. female with PMHx noted below who presented to [facility] ED on 03/04/2024 as transfer from [facility] ED. Patient presented for ml of seizure-like activity. Reported 2 episodes of syncope. At outside ED patient was tachycardic to 120's. CTA chest ordered and was negative for PE, however it demonstrated nodules within R lobe of thyroid gland necessitating OP ultrasound. Also demonstrated circumferential wall thickening of mid and distal esophagus concerning for esophagitis, but unable to exclude neoplastic process. UA concerning for infection, pt started on rocephin and culture sent out. CT AP wo contrast ordered to r/o infected urolithiasis - this demonstrated BL hydroureteronephrosis associated with filling defect within R proximal ureter with concern for possible neoplastic process, BL ureteral wall thickening suggestive of urethritis, and bladder wall thickening with adjacent stranding c/w cystitis. Given concern for malignancy, urology at [place] [facility] recommended transfer and medical admission for further workup. Prior to her transfer, ED started pt on fludrocortisone 0.1mg PO BID. Patient admitted for further evaluation and management. Nephrology is consulted for evaluation and management of hypotension. Most recent blood pressure 107/70. SBP has ranged from 70's to 110's this admission. Not on any antihypertensive medications prior to admission. TSH wnl at 3.641 No cortisol levels available for review. Patient follows with nephrology under Regulo Mendoza MD with [facility]. Scr is currently 2.35. As high as 2.46 on admission. Patient's baseline creatinine appears to be 1.6-1.7, last scr 1.75 on 01/31/2024 with eGFR of 32. Patient appears to have progressive CKD with scr ranging from 1.1-1.3 back in 2022. Home medications include prednisone 5 mg/day and Cellcept 500 mg BID (tx for ILD/nonspecific interstitial pneumonia). Patient is not on Andrea inhibitors or ARB. No diuretics. Patient did have recent exposure to IV contrast while in outside ED on 03/03. Past Medical/Surgical History Past Medical History: Diagnosis Date Arthritis Cancer (CMS/HCC) (HCC) Disease of thyroid gland Past Surgical History: Procedure Laterality Date BACK SURGERY CHOLECYSTECTOMY COLON SURGERY THYMECTOMY stated per patient, for cancer removal Review of Systems All 12 systems reviewed and are negative except for what is mentioned in the HPI. Allergies Azithromycin and Seasonal Family History No family history on file. Social History Social History Socioeconomic History Marital status: Tobacco Use Smoking status: Never Smokeless tobacco: Never Vaping Use Vaping status: Never Used Substance and Sexual Activity Alcohol use: Never Drug use: Never Sexual activity: Not Currently Social Drivers of Health Financial Resource Strain: High Risk (03/26/2020) Received from [facility] Overall Financial Resource Strain (CARDIA) Difficulty of Paying Living Expenses: Very hard Food Insecurity: No Food Insecurity (03/26/2020) Received from [facility] Hunger Vital Sign Worried About Running Out of Food in the Last Year: Never true Ran Out of Food in the Last Year: Never true Transportation Needs: No Transportation Needs (03/26/2020) Received from [facility] PRAPARE - Transportation Lack of Transportation (Medical): No Lack of Transportation (Non-Medical): No Physical Activity: Inactive (06/22/2023) Received from [facility] Exercise Vital Sign Days of Exercise per Week: 0 days Minutes of Exercise per Session: 0 min Stress: No Stress Concern Present (09/03/2019) Received from [facility] [place] [employer] - Occupational Stress Questionnaire Feeling of Stress : Not at all Social Connections: Unknown (03/01/2020) Received from [facility] Social Connection and Isolation Panel [NHANES] Frequency of Communication with Friends and Family: Three times a week Frequency of Social Gatherings with Friends and Family: Three times a week Intimate Partner Violence: Not At Risk (03/04/2024) Humiliation, Afraid, Rape, and Kick questionnaire Fear of Current or Ex-Partner: No Emotionally Abused: No Physically Abused: No Sexually Abused: No Medications Medications Prior to Admission Medication Sig Dispense Refill Last Dose/Taking Calcium Carb-Cholecalciferol 600-10 MG-MCG tablet Take 1 tablet by mouth in the morning and 1 tablet in the evening. Taking ondansetron (Zofran) 4 MG tablet Take 4 mg by mouth every 8 hours as needed for nausea or vomiting. New prescription, unsure of times or dose 03/04/2024 amitriptyline (Elavil) 75 MG tablet Take 75 mg by mouth Nightly. AVS from 03/03 from [facility] (more content not included)...[facility]10-22-2024 Consult note* Pepito Steve MD - 03/07/2024 1:47 PM EDTAssociated Order(s): IP CONSULT TO NEPHROLOGY [facility] Consultation Note Reason for consultation: Hypotension 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: Outside hospital transfer History of Presenting Illness Patient is a 63 y.o. female with PMHx noted below who presented to [facility] ED on 03/04/2024 as [facility]. Patient presented for ml of seizure-like activity. Reported 2episodes of syncope. At outside ED patient was tachycardic to 120's. CTA chest ordered and was negative for PE, however it demonstrated nodules within R lobe of thyroid gland necessitating OP ultrasound. Also demonstrated circumferential wall thickening of mid and distal esophagus concerning for esophagitis, but unable to exclude neoplastic process. UA concerning for infection, pt started on rocephin and culture sent out. CT AP wo contrast ordered to r/o infected urolithiasis - this demonstrated BL hydroureteronephrosis associated with filling defect within R proximal ureter with concern for possible neoplastic process, BL ureteral wall thickening suggestive of urethritis, and bladder wall thickening with adjacent stranding c/w cystitis. Given concern for malignancy, [facility] [place] [facility] and medical admission for further workup. Prior to her transfer, ED started pton fludrocortisone 0.1mg PO BID. Patient admitted for further evaluation and management. Nephrology is consulted for evaluation and management of hypotension. Most recent blood pressure 107/70. SBP has ranged from 70's to 110's this admission. Not on any antihypertensive medications prior to admission. TSH wnl at 3.641 No cortisol levels available for review. Patient follows with nephrology under Regulo Mendoza MD with [facility]. Scr is currently 2.35. As high as 2.46 on admission. Patient's baseline creatinine appears to be 1.6-1.7, last scr 1.75 on 01/31/2024 with eGFR of 32. Patient appears to have progressive CKD with scr ranging from 1.1-1.3 back in 2022. Home medications include prednisone 5 mg/day and Cellcept 500 mg BID (tx for ILD/nonspecific interstitial pneumonia). Patient is not on Andrea inhibitors or ARB. No diuretics. Patient did have recent exposure to IV contrast while in outside ED on 03/03. Past Medical/Surgical History Past Medical History: Diagnosis Date Arthritis Cancer (CMS/HCC) (HCC) Disease of thyroid gland Past Surgical History: Procedure Laterality Date BACK SURGERY CHOLECYSTECTOMY COLON SURGERY THYMECTOMY stated per patient, for cancer removal Review of Systems All 12 systems reviewed and are negative except for what is mentioned in the HPI. Allergies Azithromycin and Seasonal Family History No family history on file. Social History Social History Socioeconomic History Marital status: Tobacco Use Smoking status: Never Smokeless tobacco: Never Vaping Use Vaping status: Never Used Substance and Sexual Activity Alcohol use: Never Drug use: Never Sexual activity: Not Currently Social Drivers of Health Financial Resource Strain: High Risk (03/26/2020) Received from [facility] Overall Financial Resource Strain (CARDIA) Difficulty of Paying Living Expenses: Very hard Food Insecurity: No Food Insecurity (03/26/2020) Received from [facility] Hunger Vital Sign Worried About Running Out of Food in the Last Year: Never true Ran Out of Food in the Last Year: Never true Transportation Needs: No Transportation Needs (03/26/2020) Received from [facility] PRAPARE - Transportation Lack of Transportation (Medical): No Lack of Transportation (Non-Medical): No Physical Activity: Inactive (06/22/2023) Received from [facility] Exercise Vital Sign Days of Exercise per Week: 0 days Minutes of Exercise per Session: 0 min Stress: No Stress Concern Present (09/03/2019) Received from [facility] [place] [employer] - Occupational Stress Questionnaire Feeling of Stress : Not at all Social Connections: Unknown (03/01/2020) Received from [facility] Social Connection and Isolation Panel [NHANES] Frequency of Communication with Friends and Family: Three times a week Frequency of Social Gatherings with Friends and Family: Three times a week Intimate Partner Violence: Not At Risk (03/04/2024) Humiliation, Afraid, Rape, and Kick questionnaire Fear of Current or Ex-Partner: No Emotionally Abused: No Physically Abused: No Sexually Abused: No Medications Medications Prior to Admission Medication Sig Dispense Refill Last Dose/Taking Calcium Carb-Cholecalciferol 600-10 MG-MCG tablet Take 1 tablet by mouth in the morning and 1 tablet in the evening. Taking ondansetron (Zofran) 4 MG tablet Take 4 mg by mouth every 8 hours as needed for nausea or vomiting.New prescription, unsure of times or dose 03/04/2024 amitriptyline (Elavil) 75 MG tablet Take 75 mg by mouth Nightly. AVS from 03/03 from [facility] with Dr. Benitez states: discontinue the elavil for now - we will taper it down. Take 50 mg 4-5 days, then take 25 mg for 4-5 days then stop. Apoaequorin (Prevagen) 10 MG capsule Take 10 mg by mouth daily. aspirin 81 MG EC tablet Take 81 mg by mouth in the morning. biotin 5000 MCG capsule Take 5,000 mcg by mouth daily. OTC per patient levothyroxine (Synthroid, Levoxyl) 75 MCG tablet Take 75 mcg by mouth every morning (before breakfast). mycophenolate (Cellcept) 500 MG tablet Take 1,000 mg by mouth 2 times daily. 1000 mg in morning bit233 at night per patient predniSONE (Deltasone) 5 MG tablet Take 5 mg by mouth daily. Current Medications: amitriptyline, 50 mg, Oral, Nightly [Held by provider] aspirin, 81 mg, Oral, Daily Calcium Carb-Cholecalciferol, 1 tablet, Oral, BID cefTRIAXone, 1,000 mg, IntraVENous, q24h fludrocortisone, 0.1 mg, Oral, BID heparin, 5,000 Units, SubCUTAneous, 3 times per day influenza, 0.5 mL, IntraMUSCular, Once levothyroxine, 100 mcg, Oral, qAM AC melatonin, 3 mg, Oral, Nightly [Held by provider] mycophenolate, 1,000 mg, Oral, q AM [Held by provider] mycophenolate, 500 mg, Oral, qPM pantoprazole, 40 mg, Oral, BID AC predniSONE, 5 mg, Oral, Daily sodium chloride 0.9%, 5-40 mL, IntraVENous, q12h Continuous Infusions: PRN Meds:PRN medications: acetaminophen OR acetaminophen, naloxone, ondansetron ODT OR ondansetron, polyethylene glycol (PEG) 3350, sodium chloride, sodium chloride 0.9%, sucralfate Physical Exam Vitals: 03/07/24 1031 03/07/24 1036 03/07/24 1043 03/07/24 1117 BP: 103/69 99/64 97/67 107/70 BP Location: Patient Position: Pulse: 90 91 92 97 Resp: 18 18 18 16 Temp: 36.1 C (96.9 F) TempSrc: Temporal SpO2: 100% 100% 100% 94% Weight: Height: Input / Output: 24 HR: Intake/Output Summary (Last 24 hours) at 03/07/2024 1347 Last data filed at 03/07/2024 1012 Gross per 24 hour Intake 150 ml Output -- Net 150 ml IV Intake: P.O. (mL): 150 mL Dowd: General: cooperative to history and physical exam. Mouth: mucus membrane moist Neck: Supple, no jvd Chest: B/L equal air entry, no crackles, no accessory muscles usage. CV: s1s2 +ve Abdomen: NT, not distended, soft bowel sounds present Extremities: no peripheral edema, no joint swelling. Skin: Warm, no rash Neurological: Oriented times three Data Recent Labs 03/05/24 0400 03/06/2452203/07/24 0140 WBC 12.4* 11.2* 19.0* HGB 12.3 12.2 12.9 HCT 38.2 36.8 40.2 MCV 78.4 77.8 80.7 PLT 466* 462* 548* Recent Labs 03/05/24 0400 03/06/24 0503/07/24 0140 NA 133* 132* 133* K 4.2 4.5 4.0 CL 102 105 105 CO2 17* 16* 15* GLUCOSE 120* 139* 117* BUN 60* 60* 55* CREATININE 2.67* 2.42* 2.35* Albumin: No components found for: LABALBU Calcium: Lab Results Component Value Date CALCIUM 10.6 (H) 03/07/2024 Imaging: reviewed Renal US 03/04/2024: FINDINGS: Right kidney measures 10.3 x 4.9 x 4.3 cm. Renal cortical echotexture within normal limits. Mild dilatation of collecting system. No intrarenal calculi or abnormal perinephric fluid collection. Left kidney measures 9.4 x 4.9 x 4.3 cm. Renal cortical echotexture within normal limits. Mild dilatation of collecting system. No intrarenal calculi or abnormal perinephric fluid collection. Urinary bladder empty and not adequately visualized or evaluated. IMPRESSION: 1. Mild bilateral hydronephrosis. Assessment 63 y.o. female with Hypotension (I95.9) MANJIT on CKD3b (N17.9, N18.32) NAGMA, acute (E87.21) Hyponatremia Mild bilateral hydronephrosis s/p bl stent placement (N13.2) Esophagitis RECOMMENDATIONS: -The pt has chronic steroid exposure. Has risk to develop adrenal insufficiency. -C/w fludrocortisone 0.1 mg BID. -Metabolic acidosis noted, start on isotonic bicarb gtt at 100 ml/hr for now. -if pt remains hypotensive despite ivf, might require higher dose steroids given acute illness. -Check urine studies if na levels drop further despite ivf overnight. -Monitor K levels. Might need replacement w resolution of acidosis. -IV abx for UTI per primary: on ceftriaxone -Urology following, patient s/p bilateral ureteral stent insertion 03/05/2024 -GI following. -Neurology signed off, workup for seizure-like activity negative -Awaiting orthostatic vitals -Rest of management per primary team * Bogdan Patton MD - 03/05/2024 12:28 PM EDTAssociated Order(s): IP CONSULT TO UROLOGY Urology Inpatient Consultation Patient Name: Eren Merchant Date of : 1960 Admission Date: 03/04/2024 2:14 PM Today's Date: 03/05/2024 Reason for consultation: bilateral hydronephrosis Chief complaint: UTI, MANJIT HISTORY OF PRESENT ILLNESS: The patient is a 63 y.o. female with history of CKD3a, hypothyroidism, overactive bladder s/p Interstim, thymoma presents with bilateral hydronephrosis on renal US. She presented with seizure like activity and syncope. She has an MANJIT and concern for UTI. She is being treated with rocephin. She is complaining of frequency of urination but this has been going on for several years. She had an interstim placed by an outside urologist but this has not helped these symptoms. She states that previous PVRs at the urologist office have been low. PVR this AM was 20 ml's. She is not having flank pain. PAST MEDICAL HISTORY: Past Medical History: Diagnosis Date Arthritis Cancer (CMS/HCC) (HCC) Disease of thyroid gland PAST SURGICAL HISTORY: Past Surgical History: Procedure Laterality Date BACK SURGERY CHOLECYSTECTOMY COLON SURGERY THYMECTOMY stated per patient, for cancer removal ALLERGIES: Azithromycin and Seasonal CURRENT MEDICATIONS: Current Facility-Administered Medications: acetaminophen (Tylenol) tablet 650 mg, 650 mg, Oral, q6h PRN OR acetaminophen (Tylenol) suppository 650 mg, 650 mg, Rectal, q6h PRN, Maurilio Gorves MD amitriptyline (Elavil) tablet 50 mg, 50 mg, Oral, Nightly, Maurilio Groves MD, 50 mg at 03/04/242020 [Held by provider] aspirin EC tablet 81 mg, 81 mg, Oral, Daily, Maurilio Groves MD Calcium Carb-Cholecalciferol 500-5 MG-MCG per tablet 1 tablet, 1 tablet, Oral, BID, Maurilio Groves MD, 1 tablet at 03/05/24 0815 cefTRIAXone (Rocephin) 1,000 mg in sodium chloride 0.9 % 50 mL IVPB Mini-Bag Plus, 1,000 mg, IntraVENous, q24h, Maurilio Groves MD, Stopped at 03/05/24 0431 fludrocortisone (Florinef) tablet 0.1 mg, 0.1 mg, Oral, BID, Maurilio Groves MD, 0.1 mg at 03/05/24 1023 heparin injection 5,000 Units, 5,000 Units, SubCUTAneous, 3 times per day, Maurilio Groves MD, 5,000 Units at 03/05/24 0600 influenza vaccine A&B surf ant adjuvanted (Fluad) HIGH-DOSE injection 0.5 mL, 0.5 mL, IntraMUSCular, Once, Maurilio Groves MD levothyroxine (Synthroid, Levoxyl) tablet 100 mcg, 100 mcg, Oral, qAM AC, Maurilio Groves MD, 100 mcg at 03/05/24 0600 melatonin tablet 3 mg, 3 mg, Oral, Nightly, Maurilio Groves MD [Held by provider] mycophenolate (Cellcept) capsule 1,000 mg, 1,000 mg, Oral, q AM, Maurilio Groves MD [Held by provider] mycophenolate (Cellcept) capsule 500 mg, 500 mg, Oral, qPM, Maurilio Groves MD ondansetron ODT (Zofran-ODT) disintegrating tablet 4 mg, 4 mg, Oral, q8h PRN OR ondansetron (Zofran) injection 4 mg, 4 mg, IntraVENous, q6h PRN, Maurilio Groves MD pantoprazole (ProtoNix) EC tablet 40 mg, 40 mg, Oral, BID AC, Maurilio Groves MD, 40 mg at 03/05/24 0600 polyethylene glycol (PEG) 3350 (Miralax) packet 17 g, 17 g, Oral, Daily PRN, Maurilio Groves MD predniSONE (Deltasone) tablet 5 mg, 5 mg, Oral, Daily, Maurilio Groves MD, 5 mg at 03/05/24 0815 sodium chloride 0.9 % infusion, 5-250 mL/hr, IntraVENous, PRN, Maurilio Groves MD sodium chloride 0.9% (NS) flush 5-40 mL, 5-40 mL, IntraVENous, q12h, Maurilio Groves MD, 10 mL at 03/05/24 0245 sodium chloride 0.9% (NS) flush 5-40 mL, 5-40 mL, IntraVENous, PRN, Maurilio Groves MD sucralfate (Carafate) tablet 1 g, 1 g, Oral, 4x daily PRN, Maurilio Groves MD FAMILY HISTORY: No family history on file. Social History: Social History Tobacco Use Smoking status: Never Smokeless tobacco: Never Substance Use Topics Alcohol use: Never ROS: Constitutional: negative for chills and fevers HEENT: no blurry vision or eye redness Respiratory: negative for hemoptysis and shortness of breath Cardiovascular: negative for dyspnea and syncope Gastrointestinal: negative for jaundice, nausea and vomiting Genitourinary:negative for dysuria and hematuria Hematologic/lymphatic: negative for bleeding Integumentary: no new bruises or lesions Musculoskeletal:negative for muscle weakness Neurological: negative for coordination problems and seizures All other systems negative Physical Exam: Vitals: Vitals: 03/05/24 0257 03/05/24 0300 03/05/24 0351 03/05/24 0807 BP: (!) 85/60 (!) 83/55 112/75 128/90 BP Location: Left arm Left arm Left arm Left arm Patient Position: Sitting Standing Lying Lying Pulse: (!) 124 (!) 134 114 112 Resp: 18 18 Temp: 36.3 C (97.4 F) 36.1 C (97 F) TempSrc: Temporal Temporal SpO2: 97% 97% 98% 98% Weight: Height: General: Alert, in no acute distress Abdomen: soft, non distended, non tender : Bladder non palpable, no CVA TTP bilaterally DATA: LABS: BMP: Lab Results Component Value Date GLUCOSE 120 (H) 03/05/2024 CALCIUM 11.3 (H) 03/05/2024 NA 133 (L) 03/05/2024 K 4.2 03/05/2024 CO2 17 (L) 03/05/2024 CL 102 03/05/2024 BUN 60 (H) 03/05/2024 CREATININE 2.67 (H) 03/05/2024 CBC: Lab Results Component Value Date WBC 12.4 (H) 03/05/2024 HGB 12.3 03/05/2024 HCT 38.2 03/05/2024 MCV 78.4 03/05/2024 PLT 466 (H) 03/05/2024 Urinalysis: @LASTUA@ Urine Culture: No components found for: LABURIN RADIOLOGY: CT AP 03/05/24 reviewed IMPRESSION: 63 y.o. female with bilateral hydronephrosis and left distal ureteral calculus as well as calcifications in the pelvis concerning for right distal ureteral calculus PLAN: - Will make NPO. Patient has eaten breakfast. Will likely need taken to OR for cystoscopy, pyelograms and possible bilateral ureteral stent insertion. Will discuss timing - PVR 20 - no need for dowd catheter insertion - check urine culture - trend Cr - IVFs - trend WBC - abx per primary Thank you for allowing me to participate in the care of your patient BOGDAN PATTON MD 03/05/24 12:28 PM - Page electrification adviser resident with questions. Cosigned by Katherine Bowen MD at 03/05/2024 4:08 PM EDT Associated attestation - Katherine Bowen MD - 03/05/2024 4:08 PM EDT I reviewed history , exam and discussed with Resident. I have independently evaluated patient and agree with the evaluation and plan. Katherine Bowen MD 03/05/24 4:08 PM * Kayli Velasquez MD - 03/05/2024 9:37 AM EDT General Neurology Consult Patient: Eren Merchant Date of : 1960 Acct: [id number] PCP: Priyanka Smith Date of Admission: 03/04/2024 Date of Service: Pt seen/examined on 03/05/24 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: Seizure like activity History Of Present Illness: 63 y.o. 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 Patient has had two recent episodes which prompted her transfer to [facility] for further workup. On 02/26/24, patient was talking to her dad on the phone. The next thing she remembers is lying on the ground. No warning. She believes she had LOC but does not know duration. Estimates less than one minute. She denies denies tongue bite or b/b incontinence. No clear post-ictal symptoms. Her BP's run low attimes and she is on propranolol. PCP attributed to possible hypotension. She had another episode while at the urologist's office on 03/03/24. She walked up to call center receptionist desk, all of a sudden both arms started shaking, she felt weak, and next thing she knew she was on the ground. Witnesses stated patient had full body shaking. Unknown duration. Patient denies LOC, tongue bite, or b/b incontinence. She remembers the entire episode. Patient has no history of seizures. She does transient episodes of dizziness (light-headed, no vertigo), sometimes associated with worsening tremor and falls. Seizure Risk Factors: 1. Head trauma (no); 2. PHYSICIAN OFFICE NURSE infections (no); 3. Family history of seizures (yes, brother); 4. Developmental delay (no); 5. Febrile seizures (no); 6. PHYSICIAN OFFICE NURSE tumors (no); 7. PHYSICIAN OFFICE NURSE vascular disease (no); 8. Significant medical history: CKD, ILD, current complicated UTI; 9. and early development: normal and early development Patient presented to [facility] and was found to be tachycardic. She had a WBC of 20, plts 455, sodium 130 and MANJIT (Scr 3.1). CXR with L basilar atelectasis. D Dimer elevated at 3.44, CTA chestnegative for PE. CT Head negative for acute abn. UA concerning for infection and patient was started on empiric rocephin. CT A/P with b/l hydroureteronephrosis, urethritis, and cystitis. There was also concern for possible ureteral malignancy and for this concern [employer] urology recommended transfer to [facility]. As far as neurologic history: Patient was seen by outpatient neurology, Dr. Roberts, on 01/13/24 for tremor, tardive dyskinesia, and drug induced PD (reglan). Patient reported 1.5 years of b/l hand shaking/tremors and abnormal tongue movements. She was prescribed propranolol for tremors by her PCP which helped some (mostly with abnormal mouth movements). The plan at that time was to wean off reglan and then reassess for improvement in PD symptoms. Since of this week per propranolol was stopped for concern of hypotension. Past Medical History: Past Medical History: Diagnosis Date Arthritis Cancer (CMS/HCC) (HCC) Disease of thyroid gland Past Surgical History: Past Surgical History: Procedure Laterality Date BACK SURGERY CHOLECYSTECTOMY COLON SURGERY THYMECTOMY stated per patient, for cancer removal Home Medications: Prior to Admission medications Medication Sig Start Date End Date Taking? Authorizing Provider Calcium Carb-Cholecalciferol 600-10 MG-MCG tablet Take 1 tablet by mouth in the morning and 1 tablet in the evening. 02/25/23 Yes Historical Provider, ondansetron (Zofran) 4 MG tablet Take 4 mg by mouth every 8 hours as needed for nausea or vomiting.New prescription, unsure of times or dose Yes Historical Provider, amitriptyline (Elavil) 75 MG tablet Take 75 mg by mouth Nightly. Historical Provider, Apoaequorin (Prevagen) 10 MG capsule Take 10 mg by mouth daily. Historical Provider, aspirin 81 MG EC tablet Take 81 mg by mouth in the morning. Historical Provider, biotin 5000 MCG capsule Take 5,000 mcg by mouth daily. OTC per patient Historical Provider, levothyroxine (Synthroid, Levoxyl) 75 MCG tablet Take 75 mcg by mouth every morning (before breakfast). Historical Provider, mycophenolate (Cellcept) 500 MG tablet Take 1,000 mg by mouth 2 times daily. 1000 mg in morning [id number] at night per patient Historical Provider, predniSONE (Deltasone) 5 MG tablet Take 5 mg by mouth daily. Historical Provider, Calcium Carbonate-Vitamin D 500-5 MG-MCG tablet Take 5 mg by mouth in the morning and 5 mg in the evening. 03/04/24 Historical Provider, Current Hospital Medications: Current Facility-Administered Medications: acetaminophen (Tylenol) tablet 650 mg, 650 mg, Oral, q6h PRN OR acetaminophen (Tylenol) suppository 650 mg, 650 mg, Rectal, q6h PRN, Maurilio Groves MD amitriptyline (Elavil) tablet 50 mg, 50 mg, Oral, Nightly, Maurilio Groves MD, 50 mg at 03/04/242020 [Held by provider] aspirin EC tablet 81 mg, 81 mg, Oral, Daily, Maurilio Groves MD Calcium Carb-Cholecalciferol 500-5 MG-MCG per tablet 1 tablet, 1 tablet, Oral, BID, Maurilio Groves MD, 1 tablet at 03/05/24 0815 cefTRIAXone (Rocephin) 1,000 mg in sodium chloride 0.9 % 50 mL IVPB Mini-Bag Plus, 1,000 mg, IntraVENous, q24h, Maurilio Groves MD, Stopped at 03/05/24 0431 fludrocortisone (Florinef) tablet 0.1 mg, 0.1 mg, Oral, BID, Maurilio Groves MD, 0.1 mg at 03/04/24 2213 heparin injection 5,000 Units, 5,000 Units, SubCUTAneous, 3 times per day, Maurilio Groves MD, 5,000 Units at 03/05/24 0600 influenza vaccine A&B surf ant adjuvanted (Fluad) HIGH-DOSE injection 0.5 mL, 0.5 mL, IntraMUSCular, Once, Maurilio Groves MD levothyroxine (Synthroid, Levoxyl) tablet 100 mcg, 100 mcg, Oral, qAM AC, Maurilio Groves MD, 100 mcg at 03/05/24 0600 melatonin tablet 3 mg, 3 mg, Oral, Nightly, Maurilio Groves MD [Held by provider] mycophenolate (Cellcept) capsule 1,000 mg, 1,000 mg, Oral, q AM, Maurilio Groves MD [Held by provider] mycophenolate (Cellcept) capsule 500 mg, 500 mg, Oral, qPM, Maurilio Groves MD ondansetron ODT (Zofran-ODT) disintegrating tablet 4 mg, 4 mg, Oral, q8h PRN OR ondansetron (Zofran) injection 4 mg, 4 mg, IntraVENous, q6h PRN, Maurilio Groves MD pantoprazole (ProtoNix) EC tablet 40 mg, 40 mg, Oral, BID AC, Maurilio Groves MD, 40 mg at 03/05/24 0600 polyethylene glycol (PEG) 3350 (Miralax) packet 17 g, 17 g, Oral, Daily PRN, Maurilio Groves MD predniSONE (Deltasone) tablet 5 mg, 5 mg, Oral, Daily, Maurilio Groves MD, 5 mg at 03/05/24 0815 sodium chloride 0.9 % infusion, 5-250 mL/hr, IntraVENous, PRN, Maurilio Groves MD sodium chloride 0.9% (NS) flush 5-40 mL, 5-40 mL, IntraVENous, q12h, Maurilio Groves MD, 10 mL at 03/05/24 0245 sodium chloride 0.9% (NS) flush 5-40 mL, 5-40 mL, IntraVENous, PRN, Maurilio Groves MD sucralfate (Carafate) tablet 1 g, 1 g, Oral, 4x daily PRN, Maurilio Groves MD Allergies: Azithromycin and Seasonal Social History: TOBACCO: reports that she has never smoked. She has never used smokeless tobacco. ETOH: reports no history of alcohol use. RECREATIONAL DRUG USE: Social History Substance and Sexual Activity Drug Use Never Family History: No family history on file. REVIEW OF SYSTEMS: CONSTITUTIONAL: negative for fevers and chills, nightsweats EYES: negative for irritation and redness, change in visual acuity HEENT: negative for earaches, ear drainage, and nasal congestion RESPIRATORY: negative for dry cough, wheezing and chest pain CARDIOVASCULAR: negative for palpitations, dyspnea, chest pain GASTROINTESTINAL: negative for nausea, vomiting and change in bowel habits GENITOURINARY: negative for change in frequency, dysuria and hematuria ENDOCRINE: negative for heat or cold intolerance of significant weight change MUSCULOSKELETAL: negative for myalgias, arthralgias and pain NEUROLOGICAL: Positive for LOC and AMS episodes BEHAVIOR/PSYCH: negative for significant mood changes, anxiety, or agitation PHYSICAL EXAM: BP 128/90 (BP Location: Left arm, Patient Position: Lying) Pulse 112 Temp 36.1 C (97 F) (Temporal) Resp 18 Ht 1.651 m (5' 5) Wt 80.7 kg (178 lb) SpO2 98% BMI 29.62 kg/m General Appearance: NAD Cardiovascular: +S1, S2 Pulmonary: +BS Abdomen: Soft, nontender, nondistended Skin: Intact Extremities: Bilateral lower extremity edema Mental Status Exam: Level of Alertness: awake Orientation: x 3 Memory: normal Fund of Knowledge: normal Attention/Concentration: normal Language: normal Funduscopic Exam: Attempted, discs not well visualized Cranial Nerves Cranial nerve II Visual acuity: normal Visual saavedra: normal Cranial nerve III Pupils: equal, round, reactive to light Cranial nerves III, IV, Extraocular Movements: intact Cranial nerve V Facial sensation: intact Cranial nerve VII Facial strength: intact Cranial nerve VIII Hearing: intact Cranial nerve IX Palate: intact Cranial nerve XI Shoulder shrug: intact Cranial nerve XII Tongue movement: normal Motor: Drift: absent Motor: 5/5 throughout Tone: normal Abnormal Movements: absent Sensory: Temperature Right Upper Extremity: normal Left Upper Extremity: normal Right Lower Extremity: normal Left Lower Extremity: normal Touch Right Upper Extremity: normal Left Upper Extremity: normal Right Lower Extremity: normal Left Lower Extremity: normal Coordination: Finger/Nose Right: normal Left: normal Gait: Casual: Deferred secondary to fall risk Reflexes: Deep Tendon Reflexes: 2+ throughout Plantar response: Right: flexor Left: flexor Labs: Recent Labs 03/04/248 03/05/24 0400 WBC 15.3* 12.4* HGB 12.0 12.3 HCT 37.2 38.2 PLT 421 466* Recent Labs 03/04/24182703/05/24 0400 NA 131* 133* K 4.1 4.2 CL 104 102 CO2 18* 17* BUN 58* 60* CREATININE 2.46* 2.67* CALCIUM 10.5* 11.3* Recent Labs 03/04/241827 AST 27 ALT 17 BILITOT 0.5 ALKPHOS 96 Recent Labs 03/04/241827 ALKPHOS 96 ALT 17 AST 27 BILITOT 0.5 Radiology: (personally reviewed) CT Head w/o contrast 03/04/24 ([facility]) Per report: no acute intracranial abn MRI Brain w/wo contrast 07/08/18 No acute intracranial findings. No intracranial mass or pathologic enhancement. Minimal sequela of chronic microvascular ischemia. CUS 01/02/19 RIGHT SIDE Internal carotid artery: 0-19% stenosis. Vertebral artery: Patent and antegrade flow noted. LEFT SIDE Internal carotid artery: 0-19% stenosis. Tortuous vessel at distal . Vertebral artery: Patent and antegrade flow noted. Neuro: None Cardiology: TTE 07/11/18 - Exam indication: Hypotention; Mediastinal mass - [...] a prior CC echocardiographic exam for comparison. 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 LOC/AMS episodes -Patient has occasional dizziness and more recent tremor and tardive dyskinesia -Recent episodes occurred in the setting of hypotension, UTI, MANJIT, hyponatremia -LOC episode: concern for syncope > seizure -Episode of abnormal body movements: concern for nonepileptic event -CT head (per outside report) negative for acute abn -Would obtain MRI brain/MRA's -TTE pending -Routine EEG -Orthostatics -Check TSH -No AED unless clinical seizure activity and/or abnormal neurologic testing -Maintain sz precautions Complicated UTI/abnormal CT A/P findings -Hx of chronic interstitial cystitis -Urology following here -On cefriaxone I spent total time 60 minutes reviewing previous notes, test results, and face to face with the patient discussing the diagnosis and importance of compliance with the treatment plan as well as documenting on the day of the visit. * Lexii Pablo MD - 03/05/2024 6:37 AM EDTAssociated Order(s): IP CONSULT TO GI Department of Internal Medicine Gastroenterology Attending Consult Note Reason for Consult: The patient was seen in consultation at the request of Dr Groves for esophagealthickening CHIEF COMPLAINT: dizziness History Obtained From: patient HISTORY OF PRESENT ILLNESS: The patient is a 63 y.o. female with significant past medical history of immunosuppression and dysphagia transferred from OSH for UTI with sepsis , hypotension and tachycardia. Found to have hydronephrosis. Was transferred here for urology evaluation. On CT incidentally found to have esophageal thickening. Patient has been suffering from chronic dysphagia for years and states has dysmotility. 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 Allergies: Azithromycin and Seasonal Current Medications: Current Facility-Administered Medications: acetaminophen (Tylenol) tablet 650 mg, 650 mg, Oral, q6h PRN OR acetaminophen (Tylenol) suppository 650 mg, 650 mg, Rectal, q6h PRN, Maurilio Groves MD amitriptyline (Elavil) tablet 50 mg, 50 mg, Oral, Nightly, Maurilio Groves MD, 50 mg at 03/04/242020 [Held by provider] aspirin EC tablet 81 mg, 81 mg, Oral, Daily, Maurilio Groves MD Calcium Carb-Cholecalciferol 500-5 MG-MCG per tablet 1 tablet, 1 tablet, Oral, BID, Maurilio Groves MD, 1 tablet at 03/04/242020 cefTRIAXone (Rocephin) 1,000 mg in sodium chloride 0.9 % 50 mL IVPB Mini-Bag Plus, 1,000 mg, IntraVENous, q24h, Maurilio Groves MD, Stopped at 03/05/24 0431 fludrocortisone (Florinef) tablet 0.1 mg, 0.1 mg, Oral, BID, Maurilio Groves MD, 0.1 mg at 03/04/24 2213 heparin injection 5,000 Units, 5,000 Units, SubCUTAneous, 3 times per day, Maurilio Groves MD, 5,000 Units at 03/04/24 2241 influenza vaccine A&B surf ant adjuvanted (Fluad) HIGH-DOSE injection 0.5 mL, 0.5 mL, IntraMUSCular, Once, Maurilio Groves MD levothyroxine (Synthroid, Levoxyl) tablet 100 mcg, 100 mcg, Oral, qAM AC, Maurilio Groves MD melatonin tablet 3 mg, 3 mg, Oral, Nightly, Maurilio Groves MD [Held by provider] mycophenolate (Cellcept) capsule 1,000 mg, 1,000 mg, Oral, q AM, Maurilio Groves MD [Held by provider] mycophenolate (Cellcept) capsule 500 mg, 500 mg, Oral, qPM, Maurilio Groves MD ondansetron ODT (Zofran-ODT) disintegrating tablet 4 mg, 4 mg, Oral, q8h PRN OR ondansetron (Zofran) injection 4 mg, 4 mg, IntraVENous, q6h PRN, Maurilio Groves MD pantoprazole (ProtoNix) EC tablet 40 mg, 40 mg, Oral, BID AC, Maurilio Groves MD polyethylene glycol (PEG) 3350 (Miralax) packet 17 g, 17 g, Oral, Daily PRN, Maurilio Groves MD predniSONE (Deltasone) tablet 5 mg, 5 mg, Oral, Daily, Maurilio Groves MD sodium chloride 0.9 % infusion, 5-250 mL/hr, IntraVENous, PRN, Maurilio Groves MD sodium chloride 0.9% (NS) flush 5-40 mL, 5-40 mL, IntraVENous, q12h, Maurilio Groves MD, 10 mL at 03/05/24 0245 sodium chloride 0.9% (NS) flush 5-40 mL, 5-40 mL, IntraVENous, PRN, Maurilio Groves MD sucralfate (Carafate) tablet 1 g, 1 g, Oral, 4x daily PRN, Maurilio Groves MD Past Medical History: Active Ambulatory Problems Diagnosis Date Noted Esophageal dysmotility 07/31/2020 Hyponatremia 06/14/2018 Chronic interstitial cystitis 03/03/2024 ILD (interstitial lung disease) ([facility]) 03/25/2020 Lung nodules 02/12/2020 NSIP (nonspecific interstitial pneumonitis) ([facility]) 10/30/2022 Stage 3a chronic kidney disease ([facility]) 01/12/2023 Post-menopausal bleeding 11/25/2018 Acquired hypothyroidism 03/04/2024 Resolved Ambulatory Problems Diagnosis Date Noted No Resolved Ambulatory Problems Past Medical History: Diagnosis Date Arthritis Cancer (CMS/HCC) ([facility]) Disease of thyroid gland Past Surgical History: Social History Socioeconomic History Marital status: Spouse name: Not on file Number of children: Not on file Years of education: Not on file Highest education level: Not on file Occupational History Not on file Tobacco Use Smoking status: Never Smokeless tobacco: Never Vaping Use Vaping status: Never Used Substance and Sexual Activity Alcohol use: Never Drug use: Never Sexual activity: Not Currently Other Topics Concern Not on file Social History Narrative Not on file Social Determinants of Health Financial Resource Strain: High Risk (03/26/2020) Received from [facility] Overall Financial Resource Strain (CARDIA) Difficulty of Paying Living Expenses: Very hard Food Insecurity: No Food Insecurity (03/26/2020) Received from [facility] Hunger Vital Sign Worried About Running Out of Food in the Last Year: Never true Ran Out of Food in the Last Year: Never true Transportation Needs: No Transportation Needs (03/26/2020) Received from [facility] PRAPARE - Transportation Lack of Transportation (Medical): No Lack of Transportation (Non-Medical): No Physical Activity: Inactive (06/22/2023) Received from [facility] Exercise Vital Sign Days of Exercise per Week: 0 days Minutes of Exercise per Session: 0 min Stress: No Stress Concern Present (09/03/2019) Received from [facility] [employer] [place] [employer] - Occupational Stress Questionnaire Feeling of Stress : Not at all Social Connections: Unknown (03/01/2020) Received from [facility] Social Connection and Isolation Panel [NHANES] Frequency of Communication with Friends and Family: Three times a week Frequency of Social Gatherings with Friends and Family: Three times a week Attends Sikh Services: Not on file Active Member of Clubs or Organizations: Not on file Attends Club or Organization Meetings: Not on file Marital Status: Not on file Intimate Partner Violence: Not At Risk (03/04/2024) Humiliation, Afraid, Rape, and Kick questionnaire Fear of Current or Ex-Partner: No Emotionally Abused: No Physically Abused: No Sexually Abused: No Housing Stability: Not on file Family History: No family history on file. No family history colon or stomach cancer. Social History: TOBACCO: reports that she has never smoked. She has never used smokeless tobacco. ETOH: reports no history of alcohol use. DRUGS: reports no history of drug use. 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 Normal appetite and weight. No [place], visual disturbance, eye pain, jaundice, sore throat or mouth ulcers. No skin rash or itching. No CP, SOB, PAINTER, cough or wheeze. No urinary frequency, urgency, hematuria, or dysuria. No myalgia, arthralgia, or joint swelling. No weakness, numbness, or confusion. GI per HPI. No polyuria, polydipsia, heat or cold intolerance. PHYSICAL EXAM: VS: BP 112/75 (BP Location: Left arm, Patient Position: Lying) Pulse 114 Temp 36.3 C (97.4 F) (Temporal) Resp 18 Ht 5' 5 (1.651 m) Wt 178 lb (80.7 kg) SpO2 98% BMI 29.62 kg/m Body massindex is 29.62 kg/m . Constitutional: No acute distress. Well-nourished. Well hydrated Head/Eyes: Pupils are equal and round; Conjunctiva are not injected; Sclera are non-icteric. ENT: Ears/nose without external abnormalities. Oral mucosa is pink and moist. Neck: No JVD. No carotid bruits; No thyromegaly. Respiratory: Clear to auscultation bilaterally without any added sounds. Effort is normal Heart: Regular, Normal S1 and S2. No murmur; No added sounds. Abdomen: Normal BS, soft, non-tender, non-distended; no hepatomegaly. Extremities/Skin: No LE edema; Skin warm to touch and well perfused. Musculoskeletal: Head - normocephalic. Neck - supple DATA: Recent blood work and relevant radiologic and endoscopic studies were reviewed and discussed with the patient. CBC: Recent Labs 03/04/24182703/05/24 0400 WBC 15.3* 12.4* RBC 4.66 4.87 HGB 12.0 12.3 HCT 37.2 38.2 MCV 79.8 78.4 MCH 25.8* 25.3* MCHC 32.3 32.2 RDW 15.2* 15.3* PLT 421 466* MPV 10.3 10.3 CMP: Recent Labs 03/04/24182703/05/24 0400 NA 131* 133* K 4.1 4.2 CL 104 102 CO2 18* 17* BUN 58* 60* CREATININE 2.46* 2.67* GLUCOSE 111* 120* CALCIUM 10.5* 11.3* PROT 7.7 -- BILITOT 0.5 -- ALKPHOS 96 -- AST 27 -- ALT 17 -- IMPRESSION/RECOMMENDATIONS: 63 yr old female who is on immunosuppression admitted with UTI and sepsis. Consult called for incidental finding of esophageal thickening on imaging. She does have issues with swallowing which have worsen after Reglan was stopped per patient. On reviewing her chart, she has been treated for brad multiple times , her EGD in 2020 showed brad. She also had manometry in 2020 which was consistent with ineffective esophageal motility. Her symptoms and clinical picture is suggestive of dysmotility, gastroesophageal reflux disease or brad esophagitis. She states her GI doctor has moved and she has no right of way supervisor. Usually we ll treat for brad esophagitis empirically however with no recent EGD and concerning CT findings which is not available for review, needs further investigation. Her current acute issue is sepsis however, once her hemodynamics are improved, can perform an EGD to rule out any advanced lesion given the imaging findings. If negative, recommend she establishes with a local GI in [place] for ongoing care for dysmotility. Will follow the clinical course. No EGD planned for tomorrow. [facility] documented in this [facility]10-22-2024 Note* Post-Procedure Note - Lisette Dunbar RN - 03/07/2024 10:24 AM EDT POST ENDOSCOPY PROCEDURE TRANSFER REPORT Physician: Procedure completed: EGD Specimens obtained: antrum bx Medications administered: see anesthesia note Findings: see physician's note Complications: n/a Please call the Main Endoscopy Dept at [phone] for questions. Report called to JUAN Recio on H6 [id number] [facility]* Post-Procedure Note - Lisette Dunbar RN - 03/07/2024 10:24 AM EDT POST ENDOSCOPY PROCEDURE TRANSFER REPORT Physician: Procedure completed: EGD Specimens obtained: antrum bx Medications administered: see anesthesia note Findings: see physician's note Complications: n/a Please call the Main Endoscopy Dept at [phone] for questions. Report called to JUAN Recio on H6 [id number] NotePOST ENDOSCOPY PROCEDURE TRANSFER REPORT Physician: Procedure completed: EGD Specimens obtained: antrum bx Medications administered: see anesthesia note Findings: see physician's note Complications: n/a Please call the Main Endoscopy Dept at [phone] for questions. Report called to JUAN Recio on [address]10-22-2024 Telephone encounter Note* Telephone Encounter - Cecilia Barney PA-C - 03/07/2024 10:24 AM EDT Patient evaluated inpatient, needs repeat EGD in 8 weeks. Not established, patient lives in [place], please call and see if she would like to follow up with us and if not send records to her preferred follow up physician. [id number] Miscellaneous Notes* Telephone Encounter - Cecilia Barney PA-C - 03/07/2024 10:24 AM EDT Patient evaluated inpatient, needs repeat EGD in 8 weeks. Not established, patient lives in [place], please call and see if she would like to follow up with us and if not send records to her preferred follow up physician. documented in this [facility]10-22-2024 NotePatient: Eren Merchant Procedure Summary Date: 03/07/24 Room / Location: [facility] / [facility] Gastroenterology Anesthesia Start: 1000 Anesthesia Stop: 101 Procedure: ESOPHAGOGASTRODUODENOSCOPY WITH BIOPSY Diagnosis: Esophageal dysmotility Providers: Jennifer Sung MD Responsible Provider: HAILE Saldana CRNA Anesthesia Type: TIVA ASA Status: 3 Anesthesia Type: TIVA Vitals Value Taken Time BP 92/58 03/07/24 1013 Temp 36.8 ?C (98.2 ?F) 03/07/24 1013 Pulse 101 03/07/24 1013 Resp 14 03/07/24 1013 SpO2 100 % 03/07/24 1013 Anesthesia Post Evaluation Patient location during evaluation: PACU Patient participation: waiting for patient participation Level of consciousness: sleepy but conscious Pain management: satisfactory to patient Airway patency: patent Dental Injury: no Cardiovascular status: acceptable, blood pressure returned to baseline and hemodynamically stable Respiratory status: acceptable and spontaneous ventilation Hydration status: euvolemic Nausea/Vomiting: controlled No notable events documented. Patient can be discharged once all PACU criteria has been met.[facility]10-[facility] NotePatient: Eren Merchant Procedure Summary Date: 03/07/24 Room / Location: [facility] ENDO 7 / [facility] Gastroenterology Anesthesia Start: 1000 Anesthesia Stop: 1013 Procedure: ESOPHAGOGASTRODUODENOSCOPY WITH BIOPSY Diagnosis: Esophageal dysmotility Providers: Jennifer Sung MD Responsible Provider: HAILE Saldana CRNA Anesthesia Type: TIVA ASA Status: 3 Anesthesia Type: TIVA Vitals Value Taken Time BP 92/58 03/07/24 1013 Temp 36.8 ?C (98.2 ?F) 03/07/24 1013 Pulse 101 03/07/24 1013 Resp 14 03/07/24 1013 SpO2 100 % 03/07/24 1013 Anesthesia Post Evaluation Patient location during evaluation: PACU Patient participation: waiting for patient participation Level of consciousness: sleepy but conscious Pain score: 0 Pain management: satisfactory to patient Multimodal analgesia pain management approach Airway patency: patent Two or more strategies used to mitigate risk of obstructive sleep apnea Cardiovascular status: acceptable and hemodynamically stable Respiratory status: acceptable Hydration status: acceptable No notable events documented. MIPS #430 PONV Patient did not receive an inhalational anesthetic (XX430) MIPS # 424 Perioperative Temperature Management Anesthesia time was less than 60 minutes (4256F) MIPS #477 Multimodal Pain Management Not emergent case Patient was not administered multimodal pain management (G2149) Patient reports no pain in PACU (G2149) MIPS #404 Anesthesiology Smoking Abstinence The patient is not a current smoker (e.g. cigarette, cigar, pipe, e-cigarette/vaping/marijuana) If no stop here (XX404) I completed my handoff to the receiving clinician during which we: 1. Identified the patient 2. Identified the responsible provider 3. Reviewed the pertinent medical history 4. Discussed the surgical course 5. Reviewed intra-op anesthesia management and issues during anesthesia 6. Set expectations for post-procedure period 7. Allowed opportunity for questions and acknowledgement of understanding.[facility]10-22-2024 NoteHospitalist Progress Note 03/07/2024 Subjective: Admit Date: 03/04/2024 PCP: Priyanka Smith Room#: Endo Pool/NONE BRIEF HOSPITAL COURSE: Eren is a 63 y.o. 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 Urology placed b/l ureteral stent 03/05. CT with incidentally esophageal thickening. GI has evaluated, status post EGD, shows severe candidiasis esophagitis with no bleeding, recommends to change PPI to IV 40 mg twice daily for now, consider Diflucan, repeat upper endoscopy in 8 weeks, discussed via secure chat Neurology following, EEG normal, MRI brain negative, MRA head/neck shows moderate tortuosity of upper ICA's with S shaped close, otherwise no acute abnormality, echo shows ejection fraction 60%, no AED unless patient with clinical seizure activity, signed off Interval History: No acute overnight changes Patient is seen and examined Patient is comfortably resting in her bed without in any acute distress She is concerned about hypotension which may trigger seizures, nephrology consulted Family is at bedside Sodium 133, creatinine 2.35, stable, WBC 19, likely reactive Case and plan of care discussed with patient and bedside nurse. All questions answered NPO diet with enteral medications 24HR INTAKE/OUTPUT: No intake or output data in the 24 hours ending 03/07/24 0931 Past Medical History: Past Medical History: Diagnosis Date Arthritis Cancer (CMS/HCC) (HCC) Disease of thyroid gland LABS: CBC: Recent Labs 03/05/24 0400 03/06/2452203/07/24 0140 WBC 12.4* 11.2* 19.0* RBC 4.87 4.73 4.98 HGB 12.3 12.2 12.9 HCT 38.2 36.8 40.2 MCV 78.4 77.8 80.7 RDW 15.3* 15.2* 15.4* PLT 466* 462* 548* BMP: Recent Labs 03/05/24 0400 03/06/2452203/07/24 0140 NA 133* 132* 133* K 4.2 4.5 4.0 CL 102 105 105 CO2 17* 16* 15* BUN 60* 60* 55* CREATININE 2.67* 2.42* 2.35* GLUCOSE 120* 139* 117* CALCIUM 11.3* 10.7* 10.6* ANIONGAP 14* 11 13 LIVER PROFILE: Recent Labs 03/04/24 1828 AST 27 ALT 17 BILITOT 0.5 ALKPHOS 96 PROT 7.7 PT/INR: No results for input(s): PROTIME, INR in the last 72 hours. CARDIAC ENZYMES: No results for input(s): TROPONINI in the last 72 hours. Procalcitonin: No results found for: PROCAL COVID-19 PCR: No results for input(s): COVID19 in the last 72 hours. Objective: Vitals: BP 106/74 Pulse 100 Temp 36.1 ?C (97 ?F) (Temporal) Resp 18 Ht 5' 5 (1.651 m) Wt 178 lb (80.7 kg) SpO2 97% BMI 29.62 kg/m? Pulse Ox: SpO2 Av.4 % Min: 96 % Max: 100 % Supplemental O2: Physical Exam HENT: Head: Normocephalic. Nose: Nose normal. Mouth/Throat: Mouth: Mucous membranes are moist. Eyes: Extraocular Movements: Extraocular movements intact. Conjunctiva/sclera: Conjunctivae normal. Cardiovascular: Rate and Rhythm: Regular rhythm. Tachycardia present. Pulmonary: Effort: Pulmonary effort is normal. Breath sounds: Normal breath sounds. Abdominal: Palpations: Abdomen is soft. Musculoskeletal: General: Normal range of motion. Cervical back: Normal range of motion. Skin: General: Skin is warm. Neurological: General: No focal deficit present. Mental Status: She is alert and oriented to person, place, and time. Comments: tremor Psychiatric: Mood and Affect: Mood normal. Behavior: Behavior normal. Medications: Scheduled PRN [Transfer Hold] amitriptyline, 50 mg, Oral, Nightly [Held by provider] aspirin, 81 mg, Oral, Daily [Transfer Hold] Calcium Carb-Cholecalciferol, 1 tablet, Oral, BID [Transfer Hold] cefTRIAXone, 1,000 mg, IntraVENous, q24h [Transfer Hold] fludrocortisone, 0.1 mg, Oral, BID [Transfer Hold] heparin, 5,000 Units, SubCUTAneous, 3 times per day [Transfer Hold] influenza, 0.5 mL, IntraMUSCular, Once [Transfer Hold] levothyroxine, 100 mcg, Oral, qAM AC [Transfer Hold] melatonin, 3 mg, Oral, Nightly [Held by provider] mycophenolate, 1,000 mg, Oral, q AM [Held by provider] mycophenolate, 500 mg, Oral, qPM [Transfer Hold] pantoprazole, 40 mg, Oral, BID AC [Transfer Hold] predniSONE, 5 mg, Oral, Daily [Transfer Hold] sodium chloride 0.9%, 5-40 mL, IntraVENous, q12h PRN medications: [Transfer Hold] acetaminophen OR [Transfer Hold] acetaminophen, [Transfer Hold] naloxone, [Transfer Hold] ondansetron ODT OR [Transfer Hold] ondansetron, [Transfer Hold] polyethylene glycol (PEG) 3350, [Transfer Hold] sodium chloride, [Transfer Hold] sodium chloride 0.9%, [Transfer Hold] sucralfate Continuous Assessment Data: (CAT1) Reviewed 3 or more notes from different specialty or health system (each=1). (LOW: 2x CAT (more content not included)...[facility]10-22-2024 NotePatient: Eren Merchant Procedure Information Date/Time: 03/07/24 0845 Procedure: ESOPHAGOGASTRODUODENOSCOPY WITH BIOPSY Location: [facility] ENDO 7 / [facility] Gastroenterology Providers: Jennifer Sung MD Relevant Problems Endo (+) Acquired hypothyroidism /Renal (+) Hydronephrosis with urinary obstruction due to ureteral calculus (+) Stage 3a chronic kidney disease (HCC) Past Medical History: Past Medical History: No date: Arthritis No date: Cancer (CMS/HCC) (HCC) No date: Disease of thyroid gland Past Surgical History: Past Surgical History: No date: BACK SURGERY No date: CHOLECYSTECTOMY No date: COLON SURGERY No date: THYMECTOMY Comment: stated per patient, for cancer removal Social History: TOBACCO: reports that she has never smoked. She has never used smokeless tobacco. ETOH: reports no history of alcohol use. Social History Substance and Sexual Activity Drug Use Never Family History: No family history on file. Screening: Postmenopausal Clinical information reviewed: Tobacco Allergies Meds Med Hx Surg Hx OB Status Fam Hx Soc Hx Physical Exam Airway Mallampati: II TM distance: >3 FB Neck ROM: full Mouth Open: normalendotracheal tube not in place Cardiovascular Dental dentition normal Pulmonary Abdominal Anesthesia Plan patient is NPO appropriate Any family history or previous problems with anesthesia no ASA 3 TIVA Any family history or previous problems with anesthesia no The patient is not a current smoker. Anesthetic plan and risks discussed with patient. JOSE ANGEL Screening Labs: Lab Results Component Value Date WBC 19.0 (H) 03/07/2024 HGB 12.9 03/07/2024 HCT 40.2 03/07/2024 MCV 80.7 03/07/2024 PLT 548 (H) 03/07/2024 Lab Results Component Value Date NA 133 (L) 03/07/2024 K 4.0 03/07/2024 CL 105 03/07/2024 CO2 15 (L) 03/07/2024 BUN 55 (H) 03/07/2024 CREATININE 2.35 (H) 03/07/2024 GLUCOSE 117 (H) 03/07/2024 CALCIUM 10.6 (H) 03/07/2024 PROT 7.7 03/04/2024 ALKPHOS 96 03/04/2024 AST 27 03/04/2024 ALT 17 03/04/2024 EGFR 22.5 (L) 03/07/2024 Pain Score: 6 Transthoracic echocardiogram (TTE) complete with contrast, bubble, strain, and 3D PRN Result Date: 03/06/2024 Left Ventricle: Left ventricle size is normal. Normal wall thickness. Normal left ventricular systolic function. EF by 2D Simpsons Biplane is 60%. Normal wall motion. Right Ventricle: Not well visualized. Right ventricle size is grossly normal. Systolic function may be mildly reduced on some views. No significant valvular abnormalities. 03/04/24 ECG 12-LEAD 03/05/2024 5:08 PM (Final) Impression Sinus tachycardia Low voltage, precordial leads Borderline T abnormalities, anterior leads Electronically Signed On 03-05-2024 17:08:28 EDT by Fatemeh Watkins Signed by: Fatemeh Watkins on 03/05/2024 5:08 PM Equipment Requests: Additional [facility]* Care Coordination - Lola Howe RN - 03/07/2024 8:01 AM EDT Case Management Progress Note: Patient remains on H6 s/p b/l uretal stent insertion 03/05/2024. Regular diet noted. Neuro following. EEG negative. MRI/MRA pending. GI following, plan for EGD d/t dysphagia. Urology following. IV Rocephin noted. Urine, no growth final. Discharge Plan: TBD. TCC to assist and follow as needed. [id number] [facility]* Care Coordination - Lola Howe RN - 03/07/2024 8:01 AM EDT Case Management Progress Note: Patient remains on H6 s/p b/l uretal stent insertion 03/05/2024. Regular diet noted. Neuro following. EEG negative. MRI/MRA pending. GI following, plan for EGD d/t dysphagia. Urology following. IV Rocephin noted. Urine, no growth final. Discharge Plan: TBD. TCC to assist and follow as needed. [facility]10-22-2024 NoteCase Management Progress Note: Patient remains on H6 s/p b/l uretal stent insertion 03/05/2024. Regular diet noted. Neuro following. EEG negative. MRI/MRA pending. GI following, plan for EGD d/t dysphagia. Urology following. IV Rocephin noted. Urine, no growth final. Discharge Plan: TBD. TCC to assist and follow as needed. [facility]10-22-2024 Note* Op Note - Sayed Roxane Sung MD - 03/07/2024 7:56 AM EDT Endoscopy Center- [facility] Patient Name: Eren Merchant Procedure Date: 03/07/2024 7:56 AM Gender: Female Date of : 1960 Age: 63 Admit Type: Inpatient Note Status: Finalized Endoscopist: Jennifer Sung MD, [id number] Procedure: Upper GI endoscopy Indications: Epigastric abdominal pain, Dysphagia, Abnormal CT of the GI tract Findings: Severe brad esophagitis with no bleeding was found in entire esophagus. LA Grade D (one or more mucosal breaks involving at least 75% of esophageal circumference) esophagitis with no bleeding was found in the lower third of the esophagus. Localized mild inflammation characterized by congestion (edema), erosions and erythema was found in the gastric body, at the incisura, in the gastric antrum, in the prepyloric region of the stomach and at the pylorus. Biopsies were taken with a cold forceps for histology. The examined duodenum was normal. Impression: - Severe candidiasis esophagitis with no bleeding. - LA Grade D acute and erosive esophagitis with no bleeding. - Gastritis. Biopsied. - Normal examined duodenum. Recommendation: - Return patient to hospital [facility] for ongoing care. - Soft diet. - Continue present medications. Change PPI to IV 40 mg BID for now before discharge then PO. Consider Diflucan ( if no significant drug interaction) of Nystain for brad esophagitis . - Await pathology results. - Repeat upper endoscopy in 8 weeks to evaluate the response to therapy. - The findings and recommendations were discussed with the patient. Fu with GI as outpatient. - The findings and recommendations were discussed with the referring physician. Referring MD: Pcp None, Pcp None Medicines: Monitored Anesthesia Care Procedure: Pre-Anesthesia Assessment: - Prior to the procedure, a History and Physical was performed, and patient medications and allergies were reviewed. The patient's tolerance of previous anesthesia was also reviewed. The risks and benefits of the procedure and the sedation options and risks were discussed with the patient. All questions were answered, and informed consent was obtained. Prior Anticoagulants: The patient has taken no anticoagulant or antiplatelet agents except for aspirin. ASA Grade Assessment: III - A patient with severe systemic disease. After reviewing the risks and benefits, the patient was deemed in satisfactory condition to undergo the procedure. After obtaining informed consent, the endoscope was passed under direct vision. Throughout the procedure, the patient's blood pressure, pulse, and oxygen saturations were monitored continuously. The Endoscope was introduced through the mouth, and advanced to the third part of duodenum. The upper GI endoscopy was accomplished without difficulty. The patient tolerated the procedure well. Complications: No immediate complications. Procedure Code(s): --- Professional --- 87061, Esophagogastroduodenoscopy, flexible, transoral; with biopsy, single or multiple --- Technical --- 63335, Esophagogastroduodenoscopy, flexible, transoral; with biopsy, single or multiple Diagnosis Code(s): --- Professional --- B37.81, Candidal esophagitis K20.80, Other esophagitis without bleeding K29.70, Gastritis, unspecified, without bleeding R10.13, Epigastric pain R13.10, Dysphagia, unspecified R93.3, Abnormal findings on diagnostic imaging of other parts of digestive tract --- Technical --- B37.81, Candidal esophagitis K20.80, Other esophagitis without bleeding K29.70, Gastritis, unspecified, without bleeding R10.13, Epigastric pain R13.10, Dysphagia, unspecified R93.3, Abnormal findings on diagnostic imaging of other parts of digestive tract CPT copyright 2021 [employer]. All rights reserved. The codes documented in this report are preliminary and upon drum stock clerk review may be revised to meet current compliance requirements. Jennifer Sung MD 03/07/2024 10:28:23 AM This report has been signed electronically. Number of Addenda: 0 Note Initiated On: 03/07/2024 7:56 AM [employer] Phone: 1(860) 818-324810-22-2024 Note* Op Note - Jennifer Sung MD - 03/07/2024 7:56 AM EDT [facility] Name: Eren Merchant Procedure Date: 03/07/2024 7:56 AM Gender: Female Date of : 1960 Age: 63 Admit Type: Inpatient Note Status: Finalized Endoscopist: Jennifer Sung MD, [id number] Procedure: Upper GI endoscopy Indications: Epigastric abdominal pain, Dysphagia, Abnormal CT of the GI tract Findings: Severe brad esophagitis with no bleeding was found in entire esophagus. LA Grade D (one or more mucosal breaks involving at least 75% of esophageal circumference) esophagitis with no bleeding was found in the lower third of the esophagus. Localized mild inflammation characterized by congestion (edema), erosions and erythema was found in the gastric body, at the incisura, in the gastric antrum, in the prepyloric region of the stomach and at the pylorus. Biopsies were taken with a cold forceps for histology. The examined duodenum was normal. Impression: - Severe candidiasis esophagitis with no bleeding. - LA Grade D acute and erosive esophagitis with no bleeding. - Gastritis. Biopsied. - Normal examined duodenum. Recommendation: - Return patient to hospital [facility] for ongoing care. - Soft diet. - Continue present medications. Change PPI to IV 40 mg BID for now before discharge then PO. Consider Diflucan ( if no significant drug interaction) of Nystain for brad esophagitis . - Await pathology results. - Repeat upper endoscopy in 8 weeks to evaluate the response to therapy. - The findings and recommendations were discussed with the patient. Fu with GI as outpatient. - The findings and recommendations were discussed with the referring physician. Referring MD: Pcp None, Pcp None Medicines: Monitored Anesthesia Care Procedure: Pre-Anesthesia Assessment: - Prior to the procedure, a History and Physical was performed, and patient medications and allergies were reviewed. The patient's tolerance of previous anesthesia was also reviewed. The risks and benefits of the procedure and the sedation options and risks were discussed with the patient. All questions were answered, and informed consent was obtained. Prior Anticoagulants: The patient has taken no anticoagulant or antiplatelet agents except for aspirin. ASA Grade Assessment: III - A patient with severe systemic disease. After reviewing the risks and benefits, the patient was deemed in satisfactory condition to undergo the procedure. After obtaining informed consent, the endoscope was passed under direct vision. Throughout the procedure, the patient's blood pressure, pulse, and oxygen saturations were monitored continuously. The Endoscope was introduced through the mouth, and advanced to the third part of duodenum. The upper GI endoscopy was accomplished without difficulty. The patient tolerated the procedure well. Complications: No immediate complications. Procedure Code(s): --- Professional --- 36443, Esophagogastroduodenoscopy, flexible, transoral; with biopsy, single or multiple --- Technical --- 20900, Esophagogastroduodenoscopy, flexible, transoral; with biopsy, single or multiple Diagnosis Code(s): --- Professional --- B37.81, Candidal esophagitis K20.80, Other esophagitis without bleeding K29.70, Gastritis, unspecified, without bleeding R10.13, Epigastric pain R13.10, Dysphagia, unspecified R93.3, Abnormal findings on diagnostic imaging of other parts of digestive tract --- Technical --- B37.81, Candidal esophagitis K20.80, Other esophagitis without bleeding K29.70, Gastritis, unspecified, without bleeding R10.13, Epigastric pain R13.10, Dysphagia, unspecified R93.3, Abnormal findings on diagnostic imaging of other parts of digestive tract CPT copyright 2021 [employer]. All rights reserved. The codes documented in this report are preliminary and upon drum stock clerk review may be revised to meet current compliance requirements. Jennifer Sung MD 03/07/2024 10:28:23 AM This report has been signed electronically. Number of Addenda: 0 Note Initiated On: 03/07/2024 7:56 AM [employer] Phone: [phone] 231-617610-22-2024 [facility] Name: Eren Merchant Procedure Date: 03/07/2024 7:56 AM Gender: Female Date of : 1960 Age: 63 Admit Type: Inpatient Note Status: Finalized Endoscopist: Jennifer Sung MD, [id number] Procedure: Upper GI endoscopy Indications: Epigastric abdominal pain, Dysphagia, Abnormal CT of the GI tract Findings: Severe brad esophagitis with no bleeding was found in entire esophagus. LA Grade D (one or more mucosal breaks involving at least 75% of esophageal circumference) esophagitis with no bleeding was found in the lower third of the esophagus. Localized mild inflammation characterized by congestion (edema), erosions and erythema was found in the gastric body, at the incisura, in the gastric antrum, in the prepyloric region of the stomach and at the pylorus. Biopsies were taken with a cold forceps for histology. The examined duodenum was normal. Impression: - Severe candidiasis esophagitis with no bleeding. - LA Grade D acute and erosive esophagitis with no bleeding. - Gastritis. Biopsied. - Normal examined duodenum. Recommendation: - Return patient to hospital [facility] for ongoing care. - Soft diet. - Continue present medications. Change PPI to IV 40 mg BID for now before discharge then PO. Consider Diflucan ( if no significant drug interaction) of Nystain for brad esophagitis . - Await pathology results. - Repeat upper endoscopy in 8 weeks to evaluate the response to therapy. - The findings and recommendations were discussed with the patient. Fu with GI as outpatient. - The findings and recommendations were discussed with the referring physician. Referring MD: Pcp None, Pcp None Medicines: Monitored Anesthesia Care Procedure: Pre-Anesthesia Assessment: - Prior to the procedure, a History and Physical was performed, and patient medications and allergies were reviewed. The patient's tolerance of previous anesthesia was also reviewed. The risks and benefits of the procedure and the sedation options and risks were discussed with the patient. All questions were answered, and informed consent was obtained. Prior Anticoagulants: The patient has taken no anticoagulant or antiplatelet agents except for aspirin. ASA Grade Assessment: III - A patient with severe systemic disease. After reviewing the risks and benefits, the patient was deemed in satisfactory condition to undergo the procedure. After obtaining informed consent, the endoscope was passed under direct vision. Throughout the procedure, the patient's blood pressure, pulse, and oxygen saturations were monitored continuously. The Endoscope was introduced through the mouth, and advanced to the third part of duodenum. The upper GI endoscopy was accomplished without difficulty. The patient tolerated the procedure well. Complications: No immediate complications. Procedure Code(s): --- Professional --- 94892, Esophagogastroduodenoscopy, flexible, transoral; with biopsy, single or multiple --- Technical --- 71597, Esophagogastroduodenoscopy, flexible, transoral; with biopsy, single or multiple Diagnosis Code(s): --- Professional --- B37.81, Candidal esophagitis K20.80, Other esophagitis without bleeding K29.70, Gastritis, unspecified, without bleeding R10.13, Epigastric pain R13.10, Dysphagia, unspecified R93.3, Abnormal findings on diagnostic imaging of other parts of digestive tract --- Technical --- B37.81, Candidal esophagitis K20.80, Other esophagitis without bleeding K29.70, Gastritis, unspecified, without bleeding R10.13, Epigastric pain R13.10, Dysphagia, unspecified R93.3, Abnormal findings on diagnostic imaging of other parts of digestive tract CPT copyright 2021 [employer]. All rights reserved. The codes documented in this report are preliminary and upon drum stock clerk review may be revised to meet current compliance requirements. Jennifer Sung MD 03/07/2024 10:28:23 AM This report has been signed electronically. Number of Addenda: 0 Note Initiated On: 03/07/2024 7:56 [facility]10-22-2024 Plan of care note* Care Plan - Teri Alejo RN - 03/07/2024 5:13 AM EDT Problem: Pain - Adult Goal: Verbalizes/displays adequate comfort level or baseline comfort level Outcome: Progressing Problem: Safety - Adult Goal: Free from fall injury Outcome: Progressing Problem: Discharge Planning Goal: Discharge to home or other facility with appropriate resources Outcome: Progressing Problem: Chronic Conditions and Co-morbidities Goal: Patient's chronic conditions and co-morbidity symptoms are monitored and maintained or improved Outcome: Progressing [id number]* Care Coordination - Lola Howe RN - 03/06/2024 2:01 PM EDT Care Managment Initial Assessment Date: 03/06/2024 Patient Name: Eren Merchant : 1960 Patient Information Source of Information: Patient Cognition/Language: WFL - Within Functional Limits Permission given to speak with patient parts representative/caregiver as indicated: Yes Confirmation of Payer with patient/family: Yes Payer Name: [employer] Medicare : No Confirmation of Primary Care Physician: Confirmed PCP Name: Priyanka Smith Seen in last 2 years?: Yes Primary Caregiver: Self If assistance needed, confirmed caregiver ready, willing and able to care for patient at discharge:Yes Confirmed with: chris Rodriguez other Living Arrangements Current Residence: House Number of Floors 2 Number of Entry Steps: 1 Bed/Bath Levels: Separate floors Facility: Facility Name: Plan to Return: Lives with: Spouse/significant other Support Systems: Spouse/significant other, Parent Activities of Daily Living Ambulation: Independent Bathing/Dressing: Independent Elimination/Continence/Toileting: Independent Feeding: Independent Who Assists with Activities of Daily Living: Instrumental Activities of Daily Living Prescription Coverage: Yes Pharmacy Used: [facility] Medication Management: Independent Transportation/Shopping: Independent Transportation Mode: Car Needs Assistance with Transportation at Discharge: No Meal Preparation: Independent Laundry/Cleaning: Independent Finances/Bill Paying: Independent Communication: Independent Types of Care Services/Equipment Utilized Care Services: Dialysis Type: Durable Medical Equipment: Patient's Goal/Discharge Plan Patient expects to be discharged to: TBD Discharge Planning Actions: Continue to follow Patient's Choice Rights and [employer] and Collaborative Relationships Disclosed as Indicated for Post-Acute Care: Interdisciplinary Team Engagement: Social Work Referral for: Additional Information: Patient admitted to H6 s/p b/l uretal stent insertion 03/05/2024. Regular diet noted. EEG noted this am. Order for MRI brain, head and neck noted. Neurology consult noted. Tele noted. IV Rocephin noted. Urine cx pending. Met with pt at bedside, introduced self and explained role of TCC. Pt has insurance with RX coverage, active with PCP. Patient lives with Michael, sig other. DCP TBD. TCC to assist and follow as needed. Lola Howe RN [facility] [id number] Note* Care Coordination - Lola Howe RN - 03/06/2024 2:01 PM EDT Care Managment Initial Assessment Date: 03/06/2024 Patient Name: Eren Merchant : 1960 Patient Information Source of Information: Patient Cognition/Language: WFL - Within Functional Limits Permission given to speak with patient parts representative/caregiver as indicated: Yes Confirmation of Payer with patient/family: Yes Payer Name: [employer] [place] Medicare : No Confirmation of Primary Care Physician: Confirmed PCP Name: Priyanka Kruegerleticia Seen in last 2 years?: Yes Primary Caregiver: Self If assistance needed, confirmed caregiver ready, willing and able to care for patient at discharge:Yes Confirmed with: chris Rodriguez other Living Arrangements Current Residence: House Number of Floors 2 Number of Entry Steps: 1 Bed/Bath Levels: Separate floors Facility: Facility Name: Plan to Return: Lives with: Spouse/significant other Support Systems: Spouse/significant other, Parent Activities of Daily Living Ambulation: Independent Bathing/Dressing: Independent Elimination/Continence/Toileting: Independent Feeding: Independent Who Assists with Activities of Daily Living: Instrumental Activities of Daily Living Prescription Coverage: Yes Pharmacy Used: [facility] [place] Medication Management: Independent Transportation/Shopping: Independent Transportation Mode: Car Needs Assistance with Transportation at Discharge: No Meal Preparation: Independent Laundry/Cleaning: Independent Finances/Bill Paying: Independent Communication: Independent Types of Care Services/Equipment Utilized Care Services: Dialysis Type: Durable Medical Equipment: Patient's Goal/Discharge Plan Patient expects to be discharged to: TBD Discharge Planning Actions: Continue to follow Patient's Choice Rights and [employer] and Collaborative Relationships Disclosed as Indicated for Post-Acute Care: Interdisciplinary Team Engagement: Social Work Referral for: Additional Information: Patient admitted to s/p b/l uretal stent insertion 03/05/2024. Regular diet noted. EEG noted this am. Order for MRI brain, head and neck noted. Neurology consult noted. Tele noted. IV Rocephin noted. Urine cx pending. Met with pt at bedside, introduced self and explained role of TCC. Pt has insurance with RX coverage, active with PCP. Patient lives with Michael, sig other. DCP TBD. TCC to assist and follow as needed. Lola Howe RN T [facility] [id number] [facility] [address] [place] [address] ROUTINE EEG REPORT Patient Name: Eren Merchant : 1960 Date of Study: 03/06/24 Duration Recorded: 24 Minutes EEG#: [id number] ADVERTISING WRITER: Cleo Cano. PROVIDER REQUESTING STUDY: Kayli Velasquez MD REASON FOR EXAM: Evaluate for epileptiform activity DIAGNOSIS TAG: Transient Neurologic Symptoms (TNS) HISTORY: Eren Merchant is a 63 y.o. 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 Patient has had two recent episodes which prompted her transfer to [facility] for further workup. On 02/26/24, patient was talking to her dad on the phone. The next thing she remembers is lying on the ground. No warning. She believes she had LOC but does not know duration. Estimates less than one minute. She denies denies tongue bite or b/b incontinence. No clear post-ictal symptoms. Her BP's run low at times and she is on propranolol. PCP attributed to possible hypotension. She had another episode while at the urologist's office on 03/03/24. She walked up to call center receptionist desk, all of a sudden both arms started shaking, she felt weak, and next thing she knew she was on the ground. Witnesses stated patient had full body shaking. Unknown duration. Patient denies LOC, tongue bite, or b/b incontinence. She remembers the entire episode. Patient has no history of seizures. She does transient episodes of dizziness (light-headed, no vertigo), sometimes associated with worsening tremor and falls. MEDICATIONS: Current Facility-Administered Medications Medication Dose Route Frequency Provider Last Rate Last Admin acetaminophen (Tylenol) tablet 650 mg 650 mg Oral q6h PRN Jay Black MD Or acetaminophen (Tylenol) suppository 650 mg 650 mg Rectal q6h PRN Jay Black MD amitriptyline (Elavil) tablet 50 mg 50 mg Oral Nightly Jay Black MD 50 mg at 03/05/242127 [Held by provider] aspirin EC tablet 81 mg 81 mg Oral Daily Jay Black MD Calcium Carb-Cholecalciferol 500-5 MG-MCG per tablet 1 tablet 1 tablet Oral BID Jay Black MD 1 tablet at 03/06/24 0811 cefTRIAXone (Rocephin) 1,000 mg in sodium chloride 0.9 % 50 mL IVPB Mini-Bag Plus 1,000 mg IntraVENous q24h Jay Black MD Stopped at 03/06/24 0551 fludrocortisone (Florinef) tablet 0.1 mg 0.1 mg Oral BID Jay Black MD 0.1 mg at 03/06/24 0811 heparin injection 5,000 Units 5,000 Units SubCUTAneous 3 times per day Jay Black MD 5,000 Units at 03/06/24 0521 influenza vaccine A&B surf ant adjuvanted (Fluad) HIGH-DOSE injection 0.5 mL 0.5 mL IntraMUSCular Once Jay Black MD levothyroxine (Synthroid, Levoxyl) tablet 100 mcg 100 mcg Oral qAM AC Jay Black MD 100 mcg at 03/06/24 0521 melatonin tablet 3 mg 3 mg Oral Nightly Jay Black MD [Held by provider] mycophenolate (Cellcept) capsule 1,000 mg 1,000 mg Oral q AM Maurilio Groves MD [Held by provider] mycophenolate (Cellcept) capsule 500 mg 500 mg Oral qPM Maurilio Groves MD naloxone (Narcan) injection 0.4 mg 0.4 mg IntraVENous q5 min PRN Jay Black MD ondansetron ODT (Zofran-ODT) disintegrating tablet 4 mg 4 mg Oral q8h PRN Jay Black MD Or ondansetron (Zofran) injection 4 mg 4 mg IntraVENous q6h PRN Jay Black MD pantoprazole (ProtoNix) EC tablet 40 mg 40 mg Oral BID AC Jay Black MD 40 mg at 03/06/24 0521 polyethylene glycol (PEG) 3350 (Miralax) packet 17 g 17 g Oral Daily PRN Jay Balck MD predniSONE (Deltasone) tablet 5 mg 5 mg Oral Daily Jay Black MD 5 mg at 03/06/24 0811 sodium chloride 0.9 % infusion 5-250 mL/hr IntraVENous PRN Jay Black MD sodium chloride 0.9% (NS) flush 5-40 mL 5-40 mL IntraVENous q12h Jay Black MD 10 mL at 03/06/24 0245 sodium chloride 0.9% (NS) flush 5-40 mL 5-40 mL IntraVENous PRN Jay Black MD sucralfate (Carafate) tablet 1 g 1 g Oral 4x daily PRN Jay Black MD TECHNICAL ASPECTS: This routine scalp EEG study with video was carried out at [facility]. Scalp electrodes were positioned in person by an cardiac catheterization technologist, following patient education, according to the 10-20 International system of electrode placement and maintained for integrity and quality of the recording. EEG data with video was recorded continuously and digitally stored. The cardiac catheterization technologist reviewed all automated detections and manual events and prepared the data for archiving and provider review. Referential and bipolar montages were used for review. TECHNOLOGIST NOTES: No skull or scalp defects were observed. BACKGROUND ACTIVITY: Posterior background activity: A continuous organized and well-modulated 8 Hz (more content not included)...[facility]10-21-2024 [facility] [address] [place] [address] ROUTINE EEG REPORT Patient Name: Eren Merchant : 1960 Date of Study: 03/06/2024 Duration Recorded: 24 Minutes EEG#: [id number] ADVERTISING WRITER: Cleo Cano. PROVIDER REQUESTING STUDY: Kayli Velasquez MD REASON FOR EXAM: Evaluate for epileptiform activity DIAGNOSIS TAG: Transient Neurologic Symptoms (TNS) HISTORY: Eren Merchant is a 63 y.o. 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 Patient has had two recent episodes which prompted her transfer to [facility] for further workup. On 02/26/24, patient was talking to her dad on the phone. The next thing she remembers is lying on the ground. No warning. She believes she had LOC but does not know duration. Estimates less than one minute. She denies denies tongue bite or b/b incontinence. No clear post-ictal symptoms. Her BP's run low at times and she is on propranolol. PCP attributed to possible hypotension. She had another episode while at the urologist's office on 03/03/24. She walked up to call center receptionist desk, all of a sudden both arms started shaking, she felt weak, and next thing she knew she was on the ground. Witnesses stated patient had full body shaking. Unknown duration. Patient denies LOC, tongue bite, or b/b incontinence. She remembers the entire episode. Patient has no history of seizures. She does transient episodes of dizziness (light-headed, no vertigo), sometimes associated with worsening tremor and falls. MEDICATIONS: Current Facility-Administered Medications Medication Dose Route Frequency Provider Last Rate Last Admin acetaminophen (Tylenol) tablet 650 mg 650 mg Oral q6h PRN Jay Black MD Or acetaminophen (Tylenol) suppository 650 mg 650 mg Rectal q6h PRN Jay Black MD amitriptyline (Elavil) tablet 50 mg 50 mg Oral Nightly Jay Black MD 50 mg at 03/05/242127 [Held by provider] aspirin EC tablet 81 mg 81 mg Oral Daily Jay Black MD Calcium Carb-Cholecalciferol 500-5 MG-MCG per tablet 1 tablet 1 tablet Oral BID Jay Black MD 1 tablet at 03/06/24 0811 cefTRIAXone (Rocephin) 1,000 mg in sodium chloride 0.9 % 50 mL IVPB Mini-Bag Plus 1,000 mg IntraVENous q24h Jay Black MD Stopped at 03/06/24 0551 fludrocortisone (Florinef) tablet 0.1 mg 0.1 mg Oral BID Jay Black MD 0.1 mg at 03/06/24 0811 heparin injection 5,000 Units 5,000 Units SubCUTAneous 3 times per day Jay Black MD 5,000 Units at 03/06/24 0521 influenza vaccine A&B surf ant adjuvanted (Fluad) HIGH-DOSE injection 0.5 mL 0.5 mL IntraMUSCular Once Jay Black MD levothyroxine (Synthroid, Levoxyl) tablet 100 mcg 100 mcg Oral qAM AC Jay Black MD 100 mcg at 03/06/24 0521 melatonin tablet 3 mg 3 mg Oral Nightly Jya Black MD [Held by provider] mycophenolate (Cellcept) capsule 1,000 mg 1,000 mg Oral q AM Maurilio Groves MD [Held by provider] mycophenolate (Cellcept) capsule 500 mg 500 mg Oral qPM Maurilio Groves MD naloxone (Narcan) injection 0.4 mg 0.4 mg IntraVENous q5 min PRN Jay Black MD ondansetron ODT (Zofran-ODT) disintegrating tablet 4 mg 4 mg Oral q8h PRN Jay Black MD Or ondansetron (Zofran) injection 4 mg 4 mg IntraVENous q6h PRN Jay Black MD pantoprazole (ProtoNix) EC tablet 40 mg 40 mg Oral BID AC Jay Black MD 40 mg at 03/06/24 0521 polyethylene glycol (PEG) 3350 (Miralax) packet 17 g 17 g Oral Daily PRN Jay Black MD predniSONE (Deltasone) tablet 5 mg 5 mg Oral Daily Jay Black MD 5 mg at 03/06/24 0811 sodium chloride 0.9 % infusion 5-250 mL/hr IntraVENous PRN Jay Black MD sodium chloride 0.9% (NS) flush 5-40 mL 5-40 mL IntraVENous q12h Jay Black MD 10 mL at 03/06/24 0245 sodium chloride 0.9% (NS) flush 5-40 mL 5-40 mL IntraVENous PRN Jay Black MD sucralfate (Carafate) tablet 1 g 1 g Oral 4x daily PRN Jay Black MD TECHNICAL ASPECTS: This routine scalp EEG study with video was carried out at [facility]. Scalp electrodes were positioned in person by an cardiac catheterization technologist, following patient education, according to the 10-20 International system of electrode placement and maintained for integrity and quality of the recording. EEG data with video was recorded continuously and digitally stored. The cardiac catheterization technologist reviewed all automated detections and manual events and prepared the data for archiving and provider review. Referential and bipolar montages were used for review. TECHNOLOGIST NOTES: No skull or scalp defects were observed. BACKGROUND ACTIVITY: Posterior background activity: A continuous organized and well-modulated 8 (more content not included)...[facility]10-21-2024 Procedure note* Mario Angel MD PhD - 03/06/2024 11:31 AM EDTAssociated Order(s): EEG Images from the original note were not included. [facility] [address] [place] [address] ROUTINE EEG REPORT Patient Name: Eren Merchant : 1960 Date of Study: 03/06/2024 Duration Recorded: 24 Minutes EEG#: [id number] ADVERTISING WRITER: Cleo Cano. PROVIDER REQUESTING STUDY: Kayli Velasquez MD REASON FOR EXAM: Evaluate for epileptiform activity DIAGNOSIS TAG: Transient Neurologic Symptoms (TNS) HISTORY: Eren Merchant is a 63 y.o. 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 Patient has had two recent episodes which prompted her transfer to [facility] for further workup. On 02/26/24, patient was talking to her dad on the phone. The next thing she remembers is lying on the ground. No warning. She believes she had LOC but does not know duration. Estimates less than one minute. She denies denies tongue bite or b/b incontinence. No clear post-ictal symptoms. Her BP's run low attimes and she is on propranolol. PCP attributed to possible hypotension. She had another episode while at the urologist's office on 03/03/24. She walked up to call center receptionist desk, all of a sudden both arms started shaking, she felt weak, and next thing she knew she was on the ground. Witnesses stated patient had full body shaking. Unknown duration. Patient denies LOC, tongue bite, or b/b incontinence. She remembers the entire episode. Patient has no history of seizures. She does transient episodes of dizziness (light-headed, no vertigo), sometimes associated with worsening tremor and falls. MEDICATIONS: Current Facility-Administered Medications Medication Dose Route Frequency Provider Last Rate Last Admin acetaminophen (Tylenol) tablet 650 mg 650 mg Oral q6h PRN Jay Black MD Or acetaminophen (Tylenol) suppository 650 mg 650 mg Rectal q6h PRN Jay Black MD amitriptyline (Elavil) tablet 50 mg 50 mg Oral Nightly Jay Black MD 50 mg at 03/05/242127 [Held by provider] aspirin EC tablet 81 mg 81 mg Oral Daily Jay Black MD Calcium Carb-Cholecalciferol 500-5 MG-MCG per tablet 1 tablet 1 tablet Oral BID Jay Black MD 1tablet at 03/06/24 08 cefTRIAXone (Rocephin) 1,000 mg in sodium chloride 0.9 % 50 mL IVPB Mini-Bag Plus 1,000 mg IntraVENous q24h Jay Black MD Stopped at 03/06/24 0551 fludrocortisone (Florinef) tablet 0.1 mg 0.1 mg Oral BID Jay Black MD 0.1 mg at 03/06/24 0811 heparin injection 5,000 Units 5,000 Units SubCUTAneous 3 times per day Jay Black MD 5,000 Units at 03/06/24 0521 influenza vaccine A&B surf ant adjuvanted (Fluad) HIGH-DOSE injection 0.5 mL 0.5 mL IntraMUSCular Once Jay Black MD levothyroxine (Synthroid, Levoxyl) tablet 100 mcg 100 mcg Oral qAM AC Jay Black MD 100 mcg at 03/06/24520 melatonin tablet 3 mg 3 mg Oral Nightly Jay Black MD [Held by provider] mycophenolate (Cellcept) capsule 1,000 mg 1,000 mg Oral q AM Maurilio Groves MD [Held by provider] mycophenolate (Cellcept) capsule 500 mg 500 mg Oral qPM Maurilio Groves MD naloxone (Narcan) injection 0.4 mg 0.4 mg IntraVENous q5 min PRN Jay Black MD ondansetron ODT (Zofran-ODT) disintegrating tablet 4 mg 4 mg Oral q8h PRN Jay Black MD Or ondansetron (Zofran) injection 4 mg 4 mg IntraVENous q6h PRN Jay Black MD pantoprazole (ProtoNix) EC tablet 40 mg 40 mg Oral BID AC Jay Black MD 40 mg at 03/06/24 0521 polyethylene glycol (PEG) 3350 (Miralax) packet 17 g 17 g Oral Daily PRN Jay Black MD predniSONE (Deltasone) tablet 5 mg 5 mg Oral Daily Jay Black MD 5 mg at 03/06/24 0811 sodium chloride 0.9 % infusion 5-250 mL/hr IntraVENous PRN Jay Black MD sodium chloride 0.9% (NS) flush 5-40 mL 5-40 mL IntraVENous q12h Jay Black MD 10 mL at 03/06/24 0245 sodium chloride 0.9% (NS) flush 5-40 mL 5-40 mL IntraVENous PRN Jay Black MD sucralfate (Carafate) tablet 1 g 1 g Oral 4x daily PRN Jay Black MD TECHNICAL ASPECTS: This routine scalp EEG study with video was carried out at [facility]. Scalp electrodes were positioned in person by an cardiac catheterization technologist, following patient education, according to the 10-20 International system of electrode placement and maintained for integrity and quality of the recording. EEG data with video was recorded continuously and digitally stored. The cardiac catheterization technologist reviewedall automated detections and manual events and prepared the data for archiving and provider review.Referential and bipolar montages were used for review. TECHNOLOGIST NOTES: No skull or scalp defects were observed. BACKGROUND ACTIVITY: Posterior background activity: A continuous organized and well-modulated 8 Hz, 40-70 uV rhythm was seen symmetrically over the posterior head regions bilaterally. Beta range: Fronto-centrally predominant beta range activity (15-25 Hz, 10-20 uV) was seen. Sleep: Stage N2 sleep was reached as evidenced by the appearance of vertex waves and sleep spindlesseen symmetrically over the central head regions bilaterally. Normal Variants: No normal variants were identified. EKG: Tachycardic rhythm (HR~100-105 bpm) 10:51:33 -PDR (Referential to average) SLOWING: No abnormal slowing was seen. INTERICTAL EPILEPTIFORM ACTIVITY: No epileptiform activity was seen. ICTAL ACTIVITY: No ictal activity was seen. NON-EPILEPTIC EVENTS: None. ACTIVATION PROCEDURES: Photic stimulation was not contributory. Hyperventilation was not performed. IMPRESSION AND ACTIONS TAKEN: This routine EEG with video is within normal limits for the awake and sleep states. No abnormal slowing, interictal epileptiform activity, or seizures are observed. Howard Sánchez, PhD Clinical Neurophysiologist Mario Angel MD PhD Epilepsy Attending [facility] Work Phone: [phone]) 183-930310-21-2024 Procedure note* Mario Angel MD PhD - 03/06/2024 11:31 AM EDTAssociated Order(s): EEG Images from the original note were not included. [facility] [address] [place] [address] ROUTINE EEG REPORT Patient Name: Eren Merchant : 1960 Date of Study: 03/06/2024 Duration Recorded: 24 Minutes EEG#: [id number] ADVERTISING WRITER: Cleo Cano. PROVIDER REQUESTING STUDY: Kayli Velasquez MD REASON FOR EXAM: Evaluate for epileptiform activity DIAGNOSIS TAG: Transient Neurologic Symptoms (TNS) HISTORY: Eren Merchant is a 63 y.o. 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 Patient has had two recent episodes which prompted her transfer to [facility] for further workup. On 02/26/24, patient was talking to her dad on the phone. The next thing she remembers is lying on the ground. No warning. She believes she had LOC but does not know duration. Estimates less than one minute. She denies denies tongue bite or b/b incontinence. No clear post-ictal symptoms. Her BP's run low attimes and she is on propranolol. PCP attributed to possible hypotension. She had another episode while at the urologist's office on 03/03/24. She walked up to call center receptionist desk, all of a sudden both arms started shaking, she felt weak, and next thing she knew she was on the ground. Witnesses stated patient had full body shaking. Unknown duration. Patient denies LOC, tongue bite, or b/b incontinence. She remembers the entire episode. Patient has no history of seizures. She does transient episodes of dizziness (light-headed, no vertigo), sometimes associated with worsening tremor and falls. MEDICATIONS: Current Facility-Administered Medications Medication Dose Route Frequency Provider Last Rate Last Admin acetaminophen (Tylenol) tablet 650 mg 650 mg Oral q6h PRN Jay Black MD Or acetaminophen (Tylenol) suppository 650 mg 650 mg Rectal q6h PRN Jay Black MD amitriptyline (Elavil) tablet 50 mg 50 mg Oral Nightly Jay Black MD 50 mg at 03/05/242127 [Held by provider] aspirin EC tablet 81 mg 81 mg Oral Daily Jay Black MD Calcium Carb-Cholecalciferol 500-5 MG-MCG per tablet 1 tablet 1 tablet Oral BID Jay Black MD 1tablet at 03/06/24 08 cefTRIAXone (Rocephin) 1,000 mg in sodium chloride 0.9 % 50 mL IVPB Mini-Bag Plus 1,000 mg IntraVENous q24h Jay Black MD Stopped at 03/06/24 0551 fludrocortisone (Florinef) tablet 0.1 mg 0.1 mg Oral BID Jay Black MD 0.1 mg at 03/06/24 0811 heparin injection 5,000 Units 5,000 Units SubCUTAneous 3 times per day Jay Black MD 5,000 Units at 03/06/24 0521 influenza vaccine A&B surf ant adjuvanted (Fluad) HIGH-DOSE injection 0.5 mL 0.5 mL IntraMUSCular Once Jay Black MD levothyroxine (Synthroid, Levoxyl) tablet 100 mcg 100 mcg Oral qAM AC Jay Black MD 100 mcg at 03/06/24 0521 melatonin tablet 3 mg 3 mg Oral Nightly Jay Black MD [Held by provider] mycophenolate (Cellcept) capsule 1,000 mg 1,000 mg Oral q AM Maurilio Groves MD [Held by provider] mycophenolate (Cellcept) capsule 500 mg 500 mg Oral qPM Maurilio Groves MD naloxone (Narcan) injection 0.4 mg 0.4 mg IntraVENous q5 min PRN Jay Black MD ondansetron ODT (Zofran-ODT) disintegrating tablet 4 mg 4 mg Oral q8h PRN Jay Black MD Or ondansetron (Zofran) injection 4 mg 4 mg IntraVENous q6h PRN Jay Black MD pantoprazole (ProtoNix) EC tablet 40 mg 40 mg Oral BID AC Jay Black MD 40 mg at 03/06/24 0521 polyethylene glycol (PEG) 3350 (Miralax) packet 17 g 17 g Oral Daily PRN Jay Black MD predniSONE (Deltasone) tablet 5 mg 5 mg Oral Daily Jay Black MD 5 mg at 03/06/24 0811 sodium chloride 0.9 % infusion 5-250 mL/hr IntraVENous PRN Jay Black MD sodium chloride 0.9% (NS) flush 5-40 mL 5-40 mL IntraVENous q12h Jay Black MD 10 mL at 03/06/24 0245 sodium chloride 0.9% (NS) flush 5-40 mL 5-40 mL IntraVENous PRN Jay Black MD sucralfate (Carafate) tablet 1 g 1 g Oral 4x daily PRN Jay Black MD TECHNICAL ASPECTS: This routine scalp EEG study with video was carried out at [facility]. Scalp electrodes were positioned in person by an cardiac catheterization technologist, following patient education, according to the 10-20 International system of electrode placement and maintained for integrity and quality of the recording. EEG data with video was recorded continuously and digitally stored. The cardiac catheterization technologist reviewedall automated detections and manual events and prepared the data for archiving and provider review.Referential and bipolar montages were used for review. TECHNOLOGIST NOTES: No skull or scalp defects were observed. BACKGROUND ACTIVITY: Posterior background activity: A continuous organized and well-modulated 8 Hz, 40-70 uV rhythm was seen symmetrically over the posterior head regions bilaterally. Beta range: Fronto-centrally predominant beta range activity (15-25 Hz, 10-20 uV) was seen. Sleep: Stage N2 sleep was reached as evidenced by the appearance of vertex waves and sleep spindlesseen symmetrically over the central head regions bilaterally. Normal Variants: No normal variants were identified. EKG: Tachycardic rhythm (HR~100-105 bpm) 10:51:33 -PDR (Referential to average) SLOWING: No abnormal slowing was seen. INTERICTAL EPILEPTIFORM ACTIVITY: No epileptiform activity was seen. ICTAL ACTIVITY: No ictal activity was seen. NON-EPILEPTIC EVENTS: None. ACTIVATION PROCEDURES: Photic stimulation was not contributory. Hyperventilation was not performed. IMPRESSION AND ACTIONS TAKEN: This routine EEG with video is within normal limits for the awake and sleep states. No abnormal slowing, interictal epileptiform activity, or seizures are observed. Howard Sánchez, PhD Clinical Neurophysiologist Mario Angel MD PhD Epilepsy Attending documented in this [facility]10-21-2024 NoteHospitalist Progress Note 03/06/2024 Subjective: Admit Date: 03/04/2024 PCP: Priyanka Smith Room#: [id number] A BRIEF HOSPITAL COURSE: Eren is a 63 y.o. 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 Urology placed b/l ureteral stent 03/05. CT with incidentally esophageal thickening. GI has evaluated plan for EGD 02/15. Interval History: Seen at bedside. Waiting on remote to change bladder stimulator to MRI mode. Adult diet Regular 24HR INTAKE/OUTPUT: Intake/Output Summary (Last 24 hours) at 03/06/2024 1035 Last data filed at 03/06/2024 0339 Gross per 24 hour Intake 400 ml Output -- Net 400 ml Past Medical History: Past Medical History: Diagnosis Date Arthritis Cancer (CMS/HCC) (HCC) Disease of thyroid gland LABS: CBC: Recent Labs 03/04/24 1828 03/05/24 0400 03/06/24 0523 WBC 15.3* 12.4* 11.2* RBC 4.66 4.87 4.73 HGB 12.0 12.3 12.2 HCT 37.2 38.2 36.8 MCV 79.8 78.4 77.8 RDW 15.2* 15.3* 15.2* PLT 421 466* 462* BMP: Recent Labs 03/04/24 1828 03/05/24 0400 03/06/24 0523 NA 131* 133* 132* K 4.1 4.2 4.5 CL 104 102 105 CO2 18* 17* 16* BUN 58* 60* 60* CREATININE 2.46* 2.67* 2.42* GLUCOSE 111* 120* 139* CALCIUM 10.5* 11.3* 10.7* ANIONGAP 9 14* 11 LIVER PROFILE: Recent Labs 03/04/241827 AST 27 ALT 17 BILITOT 0.5 ALKPHOS 96 PROT 7.7 PT/INR: No results for input(s): PROTIME, INR in the last 72 hours. CARDIAC ENZYMES: No results for input(s): TROPONINI in the last 72 hours. Procalcitonin: No results found for: PROCAL COVID-19 PCR: No results for input(s): COVID19 in the last 72 hours. Objective: Vitals: BP 111/74 Pulse 111 Temp 36.4 ?C (97.6 ?F) (Temporal) Resp 17 Ht 5' 5 (1.651 m) Wt 178 lb (80.7 kg) SpO2 97% BMI 29.62 kg/m? Pulse Ox: SpO2 Av % Min: 94 % Max: 100 % Supplemental O2: Physical Exam HENT: Head: Normocephalic. Nose: Nose normal. Mouth/Throat: Mouth: Mucous membranes are moist. Eyes: Extraocular Movements: Extraocular movements intact. Conjunctiva/sclera: Conjunctivae normal. Cardiovascular: Rate and Rhythm: Regular rhythm. Tachycardia present. Pulmonary: Effort: Pulmonary effort is normal. Breath sounds: Normal breath sounds. Abdominal: Palpations: Abdomen is soft. Musculoskeletal: General: Normal range of motion. Cervical back: Normal range of motion. Skin: General: Skin is warm. Neurological: General: No focal deficit present. Mental Status: She is alert and oriented to person, place, and time. Comments: tremor Psychiatric: Mood and Affect: Mood normal. Behavior: Behavior normal. Medications: Scheduled PRN amitriptyline, 50 mg, Oral, Nightly [Held by provider] aspirin, 81 mg, Oral, Daily Calcium Carb-Cholecalciferol, 1 tablet, Oral, BID cefTRIAXone, 1,000 mg, IntraVENous, q24h fludrocortisone, 0.1 mg, Oral, BID heparin, 5,000 Units, SubCUTAneous, 3 times per day influenza, 0.5 mL, IntraMUSCular, Once levothyroxine, 100 mcg, Oral, qAM AC melatonin, 3 mg, Oral, Nightly [Held by provider] mycophenolate, 1,000 mg, Oral, q AM [Held by provider] mycophenolate, 500 mg, Oral, qPM pantoprazole, 40 mg, Oral, BID AC predniSONE, 5 mg, Oral, Daily sodium chloride 0.9%, 5-40 mL, IntraVENous, q12h PRN medications: acetaminophen OR acetaminophen, naloxone, ondansetron ODT OR ondansetron, polyethylene glycol (PEG) 3350, sodium chloride, sodium chloride 0.9%, sucralfate Continuous Assessment Data: (CAT1) Reviewed 3 or more notes from different specialty or health system (each=1). (LOW: 2x CAT1 or independent historian MOD: 3x CAT1 or 1x CAT3 EXTENSIVE: 3x CAT1 and 1x CAT3) Acute, acute on chronic, unstable/uncontrolled chronic problems/diagnoses: UTI sepsis -improving B/l hydroureteronephrosis MANJIT on CKD3a Concern for seizure Recurrent falls Dysphagia Esophageal dysmotility Concern for esophagitis Nephrolithiasis s/p stent Stable chronic problems affecting care, new non-acute diagnoses: Hyponatremia Chronic interstitial cystitis ILD/NSIP- cellcept being held in setting of infection Hypothyroidism Pre DM2 Tremors Hx tardive dyskinesia Drug induced parkinsonism Plan As a result of the above findings & factors, the following mgmt was pursued: - Urology evaluated and is s/p b/l ureteral stent with OP plan for bilateral ureteroscopy with laser lithotripsy in 1-2 weeks with bilateral ureteral stent exchange - GI evaluated and plan on EGD 03/07 - NPO midnight - neurology plan for EEG and MRI - TTE has been done but waiting on read - monitor on tel (more content not included)...[facility]10-21-2024 Plan of care note* Care Plan - Trina Crawley RN - 03/06/2024 8:17 AM EDT Problem: Pain - Adult Goal: Verbalizes/displays adequate comfort level or baseline comfort level Outcome: Progressing Problem: Safety - Adult Goal: Free from fall injury Outcome: Progressing Problem: Discharge Planning Goal: Discharge to home or other facility with appropriate resources Outcome: Progressing Problem: Chronic Conditions and Co-morbidities Goal: Patient's chronic conditions and co-morbidity symptoms are monitored and maintained or improved Outcome: Progressing [id number] Telephone encounter Note* Telephone Encounter - Geri Wong MA - 03/06/2024 8:12 AM EDT Per Caitlin, sent in error. Will disregard. TY [facility] [id number] Miscellaneous Notes* Telephone Encounter - Geri Wong MA - 03/06/2024 8:12 AM EDT Per Caitlin, sent in error. Will disregard. TY * Telephone Encounter - Cecilia Barney PA-C - 03/06/2024 8:08 AM EDT Patient to have repeat LFTs in 1 week as ordered by primary team during inpatient stay. Please schedule patient for hospital follow up for abdominal pain and elevated LFTs. documented in this [facility]10-21-2024 Telephone encounter Note* Telephone Encounter - Cecilia Barney PA-C - 03/06/2024 8:08 AM EDT Patient to have repeat LFTs in 1 week as ordered by primary team during inpatient stay. Please schedule patient for hospital follow up for abdominal pain and elevated LFTs. [place] [id number] NoteDepartment of Internal Medicine Gastroenterology Progress Note SUBJECTIVE: GI following for dysphagia, abnormal CT. Patient with past medical history of CKD3, ILD/nonspecific interstitial pneumonia (on cellcept and prednisone), hypothyroidism, thymoma (resected 2018), immunosuppression and dysphagia transferred from OSH for UTI with sepsis, concern for ureteral malignancy, , hypotension and tachycardia. Found to have hydronephrosis. Also with seizure like activity for which neurology is following. Plan for MRIs. On CT incidentally found to have esophageal thickening. Patient has been suffering from chronic dysphagia for years and states has dysmotility. She was on alf reglan and ended up having drug induced side effects. Patient has been treated with brad multiple times, EGD in 2020 with brad, manometry in 2020 significant for esophageal dysmotility. Plan for EGD once more stable re: urosepsis per consult note from the weekend team. Patient remains tachycardic in the 110s, afebrile. S/P cystoscopy and bilateral ureteral stent placement yesterday. To get MRIs today per neurology. Tolerating regular diet. Reports that Reglan was discontinued January 12 and since that time she has had dysphagia and odynophagia to solids and liquids. Medications Scheduled Meds: Current Facility-Administered Medications: acetaminophen (Tylenol) tablet 650 mg, 650 mg, Oral, q6h PRN OR acetaminophen (Tylenol) suppository 650 mg, 650 mg, Rectal, q6h PRN, Jay Black MD amitriptyline (Elavil) tablet 50 mg, 50 mg, Oral, Nightly, Jay Black MD, 50 mg at 03/05/242127 [Held by provider] aspirin EC tablet 81 mg, 81 mg, Oral, Daily, Jay Black MD Calcium Carb-Cholecalciferol 500-5 MG-MCG per tablet 1 tablet, 1 tablet, Oral, BID, Jay Black MD, 1 tablet at 03/05/242127 cefTRIAXone (Rocephin) 1,000 mg in sodium chloride 0.9 % 50 mL IVPB Mini-Bag Plus, 1,000 mg, IntraVENous, q24h, Jay Black MD, Stopped at 03/06/24 0551 fludrocortisone (Florinef) tablet 0.1 mg, 0.1 mg, Oral, BID, Jay Black MD, 0.1 mg at 03/05/242128 heparin injection 5,000 Units, 5,000 Units, SubCUTAneous, 3 times per day, Jay Black MD, 5,000 Units at 03/06/24 0521 influenza vaccine A&B surf ant adjuvanted (Fluad) HIGH-DOSE injection 0.5 mL, 0.5 mL, IntraMUSCular, Once, Jay Black MD levothyroxine (Synthroid, Levoxyl) tablet 100 mcg, 100 mcg, Oral, qAM AC, Jay Black MD, 100 mcg at 03/06/24 0521 melatonin tablet 3 mg, 3 mg, Oral, Nightly, Jay Black MD [Held by provider] mycophenolate (Cellcept) capsule 1,000 mg, 1,000 mg, Oral, q AM, Maurilio Groves MD [Held by provider] mycophenolate (Cellcept) capsule 500 mg, 500 mg, Oral, qPM, Maurilio Groves MD naloxone (Narcan) injection 0.4 mg, 0.4 mg, IntraVENous, q5 min PRN, Jay Black MD ondansetron ODT (Zofran-ODT) disintegrating tablet 4 mg, 4 mg, Oral, q8h PRN OR ondansetron (Zofran) injection 4 mg, 4 mg, IntraVENous, q6h PRN, Jay Black MD pantoprazole (ProtoNix) EC tablet 40 mg, 40 mg, Oral, BID AC, Jay Black MD, 40 mg at 03/06/24 0521 polyethylene glycol (PEG) 3350 (Miralax) packet 17 g, 17 g, Oral, Daily PRN, Jay Black MD predniSONE (Deltasone) tablet 5 mg, 5 mg, Oral, Daily, Jay Black MD, 5 mg at 03/05/24 0815 sodium chloride 0.9 % infusion, 5-250 mL/hr, IntraVENous, PRN, Jay Black MD sodium chloride 0.9% (NS) flush 5-40 mL, 5-40 mL, IntraVENous, q12h, Jay Black MD, 10 mL at 03/06/24 0245 sodium chloride 0.9% (NS) flush 5-40 mL, 5-40 mL, IntraVENous, PRN, Jay Black MD sucralfate (Carafate) tablet 1 g, 1 g, Oral, 4x daily PRN, Jay Black MD OBJECTIVE VITALS: BP 130/85 (BP Location: Left arm, Patient Position: Lying) Pulse 111 Temp 36.2 ?C (97.2 ?F) (Temporal) Resp 16 Ht 5' 5 (1.651 m) Wt 178 lb (80.7 kg) SpO2 97% BMI 29.62 kg/m? Average, Min, and Max for last24 hours Vitals: TEMPERATURE: Temp Av.1 ?C (96.9 ?F) Min: 35.8 ?C (96.4 ?F) Max: 36.2 ?C (97.2 ?F) RESPIRATIONS RANGE: Resp Av.6 Min: 16 Max: 18 PULSE RANGE: Pulse Av.8 Min: 104 Max: 112 BLOOD PRESSURE RANGE: Systolic (24hrs), Av , Min:84 , Max:139 ; Diastolic (24hrs), Av, Min:50, Max:94 PULSE OXIMETRY RANGE:SpO2 Av.1 % Min: 94 % Max: 100 % I/O last 3 completed shifts: In: 400 (5 mL/kg) [P.O.:150; I.V.:250 (3.1 mL/kg)] Out: - (0 mL/kg) Weight: 80.7 kg Constitutional: No acute distress. Well-nourished. Well hydrated. Tearful. Eyes: Pupils are equal and round; Conjunctiva are not injected; Sclera are non-icteric. ENT: Ears/nose without external abnormalities. Oral mucosa is pink and moist. Neck: No JVD. No thyromegaly. FROM. Respiratory: Clear to auscultation bilaterally without any added sounds. Effort is normal Heart: Regular, Normal S1 and S2. No murmur; No added sounds. Abdomen: Normal BS, soft, non-tender, non-distended; no hepatomegaly. Extremitie (more content not included)...[facility] [id number] Plan of care note* Care Plan - Teri Alejo RN - 03/06/2024 5:25 AM EDT Problem: Pain - Adult Goal: Verbalizes/displays adequate comfort level or baseline comfort level Outcome: Progressing Problem: Safety - Adult Goal: Free from fall injury Outcome: Progressing Problem: Discharge Planning Goal: Discharge to home or other facility with appropriate resources Outcome: Progressing Problem: Chronic Conditions and Co-morbidities Goal: Patient's chronic conditions and co-morbidity symptoms are monitored and maintained or improved Outcome: Progressing [facility] [id number] Note* Perioperative Nursing Note - Reji Lopez RN - 03/05/2024 6:54 PM EDT Pt ambulated to restroom with RN assist x 1, voided twice adequately. Returned to bed and transporttaking pt to room. [facility] [id number] Note* Perioperative Nursing Note - Reji Lopez RN - 03/05/2024 6:54 PM EDT Pt ambulated to restroom with RN assist x 1, voided twice adequately. Returned to bed and transporttaking pt to room. [place] [id number] Note* Perioperative Nursing Note - Reji Lopez RN - 03/05/2024 6:41 PM EDT Pt doing well, awake and drinking water, no complaints, attempted bedpan but was unable, pt states she can wait to try the restroom in a little while. Report called and in for transport. [place] [id number] Note* Perioperative Nursing Note - Reji Lopez RN - 03/05/2024 6:41 PM EDT Pt doing well, awake and drinking water, no complaints, attempted bedpan but was unable, pt states she can wait to try the restroom in a little while. Report called and in for transport. [facility] [id number] NotePatient: Eren Merchant Procedure Summary Date: 03/05/24 Room / Location: [facility] OR [address] [place] [address] Operating Room Anesthesia Start: 170 Anesthesia Stop: 1743 Procedure: CYSTOSCOPY, BILATERAL URETERAL STENT INSERTION (Bilateral: Urethra) Diagnosis: Hydronephrosis with urinary obstruction due to ureteral calculus Surgeons: Katherine Bowen MD Responsible Provider: Curt Bautista MD Anesthesia Type: general ASA Status: 2 Anesthesia Type: general Vitals Value Taken Time BP 90/50 03/05/24 1748 Temp 36.1 03/05/24 1748 Pulse 102 03/05/24 1748 Resp 16 03/05/24 1748 SpO2 100 % 03/05/241747 Vitals shown include unfiled device data. Anesthesia Post Evaluation Patient location during evaluation: PACU Patient participation: complete - patient participated Level of consciousness: awake and alert Pain management: satisfactory to patient Airway patency: patent Dental Injury: no Cardiovascular status: acceptable, blood pressure returned to baseline and hemodynamically stable Respiratory status: acceptable and spontaneous ventilation Hydration status: euvolemic Nausea/Vomiting: controlled No notable events documented. Patient can be discharged once all PACU criteria has been met.[facility]10-20-2024 Note90//Patient: Eren Merchant Procedure Summary Date: 03/05/24 Room / Location: [facility] OR [address] [place] [address] Operating Room Anesthesia Start: 1705 Anesthesia Stop: 1743 Procedure: CYSTOSCOPY, BILATERAL URETERAL STENT INSERTION (Bilateral: Urethra) Diagnosis: Hydronephrosis with urinary obstruction due to ureteral calculus Surgeons: Katherine Bowen MD Responsible Provider: Curt Bautista MD Anesthesia Type: general ASA Status: 2 Anesthesia Type: general Vitals Value Taken Time BP 90/50 03/05/24 1748 Temp 36.1 03/05/24 1748 Pulse 101 03/05/24 1747 Resp 16 03/05/24 1748 SpO2 100 % 03/05/24 174 Vitals shown include unfiled device data. Anesthesia Post Evaluation Patient location during evaluation: PACU Patient participation: complete - patient participated Level of consciousness: awake and alert Pain management: satisfactory to patient Multimodal analgesia pain management approach Airway patency: patent Two or more strategies used to mitigate risk of obstructive sleep apnea Cardiovascular status: acceptable and hemodynamically stable Respiratory status: acceptable Hydration status: acceptable No notable events documented. MIPS #430 PONV Patient received an inhalational anesthetic (4554F) Patient exhibits three or more risk factors for PONV (4556F) Patient received at leaset 2 prophylactic Rx PONV anti-emtic agents of different classes preop and/or intraop (G9775) MIPS # 424 Perioperative Temperature Management Anesthesia time was less than 60 minutes (4256F) MIPS #477 Multimodal Pain Management Not emergent case Patient was administered multimodal pain management (two or more drugs and/or interventions excluding systemic opioids) in the periopeartive period occurring at some time between 6 hours prior to anesthesia start time until discharged from PACU (G2148) MIPS #404 Anesthesiology Smoking Abstinence The patient is not a current smoker (e.g. cigarette, cigar, pipe, e-cigarette/vaping/marijuana) If no stop here (XX404) I completed my handoff to the receiving clinician during which we: 1. Identified the patient 2. Identified the responsible provider 3. Reviewed the pertinent medical history 4. Discussed the surgical course 5. Reviewed intra-op anesthesia management and issues during anesthesia 6. Set expectations for post-procedure period 7. Allowed opportunity for questions and acknowledgement of understanding.[facility]10-20-2024 Nurse Note* Lala Souza RN - 03/05/2024 5:29 PM EDT MRI screening complete. Remote for bladder stimulator requested to be brought in alone with cards for [employer] and page makeup system operator. Patient said they could be brought in on Wednesday. [facility] [id number] NoteAirway Date/Time: 03/05/2024 5:11 PM Urgency: scheduled Airway not difficult General Information and Staff Patient location during procedure: Procedural Resident/KNIFE OPERATOR: Jasmyne Cuba APRN - KNIFE OPERATOR Performed: KNIFE OPERATOR Indications and Patient Condition Indications for airway management: anesthesia and airway protection Sedation level: Asleep Preoxygenated: yes Patient position: sniffing Mask difficulty assessment: 0 - not attempted Final Airway Details Final airway type: supraglottic airway Successful airway: Igel Size 4 Number of attempts at approach: [address] [place], [place] [address]753210-20-2024 Note* Op Note - Katherine Bowen MD - 03/05/2024 5:06 PM EDT Images from the original note were not included. Katherine Bowen MD 03/05/2024 at 5:49 PM UROLOGY OPERATIVE REPORT PATIENT NAME: Eren Merchant DATE OF : 1960 TODAY'S DATE: 03/05/2024 PreOp Dx:: bilateral ureteral calculus with uti PostOp Dx: Same Operation : cystoscopy bilateral stent placement Surgeon Katherine Bowen [facility] Anesthesia:general lma Ebl: Drains 6fr X 24cmJJ bilateral Dowd , Specimen: Complications None; patient tolerated the procedure well. Findings: INDICATIONS: Eren Merchant , is a 63 y.o. female who presents with bilateral [facility]. [facility] Repeat image shows bilateral hydronephrosis and bilateral ureteral calculus. She has low bp. She presents for bilateral stent placement.. Eren Merchantpresents for bilateral stent placement. The risks benefits and alternatives were explained and the patient wishes to proceed. PROCEDURE: Eren Merchant Was brought to the operating room. Thorough time out was performed and everyone present was in agreement. Patient was placed on OR table. Anesthesia and lines were maintained by the anesthesia team. Patient was placed in the dorsal lithotomy position. Prepped and draped in usual fashion. Pressure points were padded. A cystourethroscope was inserted through the urethra and the bladder was inspected. There were no masses or lesions. Left Then a 0.035 Brilliant wire was advanced to the level of the kidney. A 6 fr x 24cmJJ stent was advancedover the wire through the cystoscope under fluoroscopic visualization. Once in position the wire was removed. A good curl was noted in the kidney and the bladder. Right Then a 0.035 Brilliant wire was advanced to the level of the kidney. A 6fr x 24cmJJ stent was advanced over the wire through the cystoscope under fluoroscopic visualization. Once in position the wire wasremoved. A good curl was noted in the kidney and the bladder. The bladder was emptied and patient awoken from anesthesia. Katherine Bowen MD 03/05/24 5:49 PM [employer] Phone: [phone] 566-339410-20-2024 Note* Op Note - Katherine Bowen MD - 03/05/2024 5:06 PM EDT Images from the original note were not included. Katherine Bowen MD 03/05/2024 at 5:49 PM UROLOGY OPERATIVE REPORT PATIENT NAME: Eren Merchant DATE OF : 1960 TODAY'S DATE: 03/05/2024 PreOp Dx:: bilateral ureteral calculus with uti PostOp Dx: Same Operation : cystoscopy bilateral stent placement Surgeon Katherine Bowen MD Assist Jhony [facility] Anesthesia:general lma Ebl: Drains 6fr X 24cmJJ bilateral Dowd , Specimen: Complications None; patient tolerated the procedure well. Findings: INDICATIONS: Eren Merchant , is a 63 y.o. female who presents with bilateral hydronephrosis. [facility] Repeat image shows bilateral hydronephrosis and bilateral ureteral calculus. She has low bp. She presents for bilateral stent placement.. Eren Merchantpresents for bilateral stent placement. The risks benefits and alternatives were explained and the patient wishes to proceed. PROCEDURE: Eren Merchant Was brought to the operating room. Thorough time out was performed and everyone present was in agreement. Patient was placed on OR table. Anesthesia and lines were maintained by the anesthesia team. Patient was placed in the dorsal lithotomy position. Prepped and draped in usual fashion. Pressure points were padded. A cystourethroscope was inserted through the urethra and the bladder was inspected. There were no masses or lesions. Left Then a 0.035 Brilliant wire was advanced to the level of the kidney. A 6 fr x 24cmJJ stent was advancedover the wire through the cystoscope under fluoroscopic visualization. Once in position the wire was removed. A good curl was noted in the kidney and the bladder. Right Then a 0.035 Brilliant wire was advanced to the level of the kidney. A 6fr x 24cmJJ stent was advanced over the wire through the cystoscope under fluoroscopic visualization. Once in position the wire wasremoved. A good curl was noted in the kidney and the bladder. The bladder was emptied and patient awoken from anesthesia. Katherine Bowen MD 03/05/24 5:49 PM [employer] Phone: [phone] 174-939010-20-2024 NotePatient: Eren Merchant Procedure Information Date/Time: 03/05/24 170 Procedure: CYSTOSCOPY WITH INSERTION URETERAL STENT (Bilateral: Urethra) Location: [facility] OR [address] [place] [address] Operating Room Surgeons: Katherine Bowen MD Relevant Problems No relevant active problems Past Medical History: Past Medical History: No date: Arthritis No date: Cancer (CMS/HCC) (HCC) No date: Disease of thyroid gland Past Surgical History: Past Surgical History: No date: BACK SURGERY No date: CHOLECYSTECTOMY No date: COLON SURGERY No date: THYMECTOMY Comment: stated per patient, for cancer removal Social History: TOBACCO: reports that she has never smoked. She has never used smokeless tobacco. ETOH: reports no history of alcohol use. Social History Substance and Sexual Activity Drug Use Never Family History: No family history on file. Screening: Postmenopausal Clinical information reviewed: Tobacco Allergies Meds Med Hx Surg Hx Fam Hx Soc Hx Physical Exam Airway Mallampati: III TM distance: >3 FB Neck ROM: full Mouth Open: normal Cardiovascular Dental Pulmonary Abdominal Anesthesia Plan patient is NPO appropriate Any family history or previous problems with anesthesia no ASA 2 general Any family history or previous problems with anesthesia no The patient is not a current smoker. Anesthetic plan and risks discussed with patient. JOSE ANGEL Screening Labs: Lab Results Component Value Date WBC 12.4 (H) 03/05/2024 HGB 12.3 03/05/2024 HCT 38.2 03/05/2024 MCV 78.4 03/05/2024 PLT 466 (H) 03/05/2024 Lab Results Component Value Date NA 133 (L) 03/05/2024 K 4.2 03/05/2024 CL 102 03/05/2024 CO2 17 (L) 03/05/2024 BUN 60 (H) 03/05/2024 CREATININE 2.67 (H) 03/05/2024 GLUCOSE 120 (H) 03/05/2024 CALCIUM 11.3 (H) 03/05/2024 PROT 7.7 03/04/2024 ALKPHOS 96 03/04/2024 AST 27 03/04/2024 ALT 17 03/04/2024 EGFR 19.3 (L) 03/05/2024 Pain Score: 6 No echocardiogram results found for the past 14 days 03/04/24 ECG 12-LEAD (Preliminary) This result has not been signed. Information might be incomplete. Impression Sinus tachycardia Low voltage, precordial leads Borderline T abnormalities, anterior leads Equipment Requests: [facility] Consult note* Bogdan Patton MD - 03/05/2024 12:28 PM EDTAssociated Order(s): IP CONSULT TO UROLOGY Urology Inpatient Consultation Patient Name: Eren Merchant Date of : 1960 Admission Date: 03/04/2024 2:14 PM Today's Date: 03/05/2024 Reason for consultation: bilateral hydronephrosis Chief complaint: UTI, MANJIT HISTORY OF PRESENT ILLNESS: The patient is a 63 y.o. female with history of CKD3a, hypothyroidism, overactive bladder s/p Interstim, thymoma presents with bilateral hydronephrosis on renal US. She presented with seizure like activity and syncope. She has an MANJIT and concern for UTI. She is being treated with rocephin. She is complaining of frequency of urination but this has been going on for several years. She had an interstim placed by an outside urologist but this has not helped these symptoms. She states that previous PVRs at the urologist office have been low. PVR this AM was 20 ml's. She is not having flank pain. PAST MEDICAL HISTORY: Past Medical History: Diagnosis Date Arthritis Cancer (CMS/HCC) (HCC) Disease of thyroid gland PAST SURGICAL HISTORY: Past Surgical History: Procedure Laterality Date BACK SURGERY CHOLECYSTECTOMY COLON SURGERY THYMECTOMY stated per patient, for cancer removal ALLERGIES: Azithromycin and Seasonal CURRENT MEDICATIONS: Current Facility-Administered Medications: acetaminophen (Tylenol) tablet 650 mg, 650 mg, Oral, q6h PRN OR acetaminophen (Tylenol) suppository 650 mg, 650 mg, Rectal, q6h PRN, Maurilio Groves MD amitriptyline (Elavil) tablet 50 mg, 50 mg, Oral, Nightly, Maurilio Groves MD, 50 mg at 03/04/242020 [Held by provider] aspirin EC tablet 81 mg, 81 mg, Oral, Daily, Maurilio Groves MD Calcium Carb-Cholecalciferol 500-5 MG-MCG per tablet 1 tablet, 1 tablet, Oral, BID, Maurilio Groves MD, 1 tablet at 03/05/24 0815 cefTRIAXone (Rocephin) 1,000 mg in sodium chloride 0.9 % 50 mL IVPB Mini-Bag Plus, 1,000 mg, IntraVENous, q24h, Maurilio Groves MD, Stopped at 03/05/24 0431 fludrocortisone (Florinef) tablet 0.1 mg, 0.1 mg, Oral, BID, Maurilio Groves MD, 0.1 mg at 03/05/24 1023 heparin injection 5,000 Units, 5,000 Units, SubCUTAneous, 3 times per day, Maurilio Groves MD, 5,000 Units at 03/05/24 0600 influenza vaccine A&B surf ant adjuvanted (Fluad) HIGH-DOSE injection 0.5 mL, 0.5 mL, IntraMUSCular, Once, Maurilio Groves MD levothyroxine (Synthroid, Levoxyl) tablet 100 mcg, 100 mcg, Oral, qAM AC, Maurilio Groves MD, 100 mcg at 03/05/24 0600 melatonin tablet 3 mg, 3 mg, Oral, Nightly, Maurilio Groves MD [Held by provider] mycophenolate (Cellcept) capsule 1,000 mg, 1,000 mg, Oral, q AM, Maurilio Groves MD [Held by provider] mycophenolate (Cellcept) capsule 500 mg, 500 mg, Oral, qPM, Maurilio Groves MD ondansetron ODT (Zofran-ODT) disintegrating tablet 4 mg, 4 mg, Oral, q8h PRN OR ondansetron (Zofran) injection 4 mg, 4 mg, IntraVENous, q6h PRN, Maurilio Groves MD pantoprazole (ProtoNix) EC tablet 40 mg, 40 mg, Oral, BID AC, Maurilio Groves MD, 40 mg at 03/05/24 0600 polyethylene glycol (PEG) 3350 (Miralax) packet 17 g, 17 g, Oral, Daily PRN, Maurilio Groves MD predniSONE (Deltasone) tablet 5 mg, 5 mg, Oral, Daily, Maurilio Groves MD, 5 mg at 03/05/24 0815 sodium chloride 0.9 % infusion, 5-250 mL/hr, IntraVENous, PRN, Maurilio Groves MD sodium chloride 0.9% (NS) flush 5-40 mL, 5-40 mL, IntraVENous, q12h, Maurilio Groves MD, 10 mL at 03/05/24 0245 sodium chloride 0.9% (NS) flush 5-40 mL, 5-40 mL, IntraVENous, PRN, Maurilio Groves MD sucralfate (Carafate) tablet 1 g, 1 g, Oral, 4x daily PRN, Maurilio Groves MD FAMILY HISTORY: No family history on file. Social History: Social History Tobacco Use Smoking status: Never Smokeless tobacco: Never Substance Use Topics Alcohol use: Never ROS: Constitutional: negative for chills and fevers HEENT: no blurry vision or eye redness Respiratory: negative for hemoptysis and shortness of breath Cardiovascular: negative for dyspnea and syncope Gastrointestinal: negative for jaundice, nausea and vomiting Genitourinary:negative for dysuria and hematuria Hematologic/lymphatic: negative for bleeding Integumentary: no new bruises or lesions Musculoskeletal:negative for muscle weakness Neurological: negative for coordination problems and seizures All other systems negative Physical Exam: Vitals: Vitals: 03/05/24 0257 03/05/24 0300 03/05/24 0351 03/05/24 0807 BP: (!) 85/60 (!) 83/55 112/75 128/90 BP Location: Left arm Left arm Left arm Left arm Patient Position: Sitting Standing Lying Lying Pulse: (!) 124 (!) 134 114 112 Resp: 18 18 Temp: 36.3 C (97.4 F) 36.1 C (97 F) TempSrc: Temporal Temporal SpO2: 97% 97% 98% 98% Weight: Height: General: Alert, in no acute distress Abdomen: soft, non distended, non tender : Bladder non palpable, no CVA TTP bilaterally DATA: LABS: BMP: Lab Results Component Value Date GLUCOSE 120 (H) 03/05/2024 CALCIUM 11.3 (H) 03/05/2024 NA 133 (L) 03/05/2024 K 4.2 03/05/2024 CO2 17 (L) 03/05/2024 CL 102 03/05/2024 BUN 60 (H) 03/05/2024 CREATININE 2.67 (H) 03/05/2024 CBC: Lab Results Component Value Date WBC 12.4 (H) 03/05/2024 HGB 12.3 03/05/2024 HCT 38.2 03/05/2024 MCV 78.4 03/05/2024 PLT 466 (H) 03/05/2024 Urinalysis: @LASTUA@ Urine Culture: No components found for: LABURIN RADIOLOGY: CT AP 03/05/24 reviewed IMPRESSION: 63 y.o. female with bilateral hydronephrosis and left distal ureteral calculus as well as calcifications in the pelvis concerning for right distal ureteral calculus PLAN: - Will make NPO. Patient has eaten breakfast. Will likely need taken to OR for cystoscopy, pyelograms and possible bilateral ureteral stent insertion. Will discuss timing - PVR 20 - no need for dowd catheter insertion - check urine culture - trend Cr - IVFs - trend WBC - abx per primary Thank you for allowing me to participate in the care of your patient BOGDAN PATTON MD 03/05/24 12:28 PM - Page electrification adviser resident with questions. Cosigned by Katherine Bowen MD at 03/05/2024 4:08 PM EDT Associated attestation - Katherine Bowen MD - 03/05/2024 4:08 PM EDT I reviewed history , exam and discussed with Resident. I have independently evaluated patient and agree with the evaluation and plan. Katherine Bowen MD 03/05/24 4:08 PM [facility] [id number] NoteHospitalist Progress Note 03/05/2024 Subjective: Admit Date: 03/04/2024 PCP: Priyanka Smith Room#: [id number] A BRIEF HOSPITAL COURSE: Eren is a 63 y.o. 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 CT with incidentally esophageal thickening. GI has evaluated. Interval History: Seen at bedside. Her son is present. No overnight issues. Case and plan discussed with patient and bedside nurse. All questions answered. Adult diet Regular 24HR INTAKE/OUTPUT: No intake or output data in the 24 hours ending 03/05/24 1005 Past Medical History: Past Medical History: Diagnosis Date Arthritis Cancer (CMS/HCC) (HCC) Disease of thyroid gland LABS: CBC: Recent Labs 03/04/24182703/05/24 0400 WBC 15.3* 12.4* RBC 4.66 4.87 HGB 12.0 12.3 HCT 37.2 38.2 MCV 79.8 78.4 RDW 15.2* 15.3* PLT 421 466* BMP: Recent Labs 03/04/24182703/05/24 0400 NA 131* 133* K 4.1 4.2 CL 104 102 CO2 18* 17* BUN 58* 60* CREATININE 2.46* 2.67* GLUCOSE 111* 120* CALCIUM 10.5* 11.3* ANIONGAP 9 14* LIVER PROFILE: Recent Labs 03/04/241827 AST 27 ALT 17 BILITOT 0.5 ALKPHOS 96 PROT 7.7 PT/INR: No results for input(s): PROTIME, INR in the last 72 hours. CARDIAC ENZYMES: No results for input(s): TROPONINI in the last 72 hours. Procalcitonin: No results found for: PROCAL COVID-19 PCR: No results for input(s): COVID19 in the last 72 hours. Objective: Vitals: BP 128/90 (BP Location: Left arm, Patient Position: Lying) Pulse 112 Temp 36.1 ?C (97 ?F) (Temporal) Resp 18 Ht 5' 5 (1.651 m) Wt 178 lb (80.7 kg) SpO2 98% BMI 29.62 kg/m? Pulse Ox: SpO2 Av.4 % Min: 93 % Max: 98 % Supplemental O2: Physical Exam HENT: Head: Normocephalic. Nose: Nose normal. Mouth/Throat: Mouth: Mucous membranes are moist. Eyes: Extraocular Movements: Extraocular movements intact. Conjunctiva/sclera: Conjunctivae normal. Cardiovascular: Rate and Rhythm: Regular rhythm. Tachycardia present. Pulmonary: Effort: Pulmonary effort is normal. Breath sounds: Normal breath sounds. Abdominal: Palpations: Abdomen is soft. Musculoskeletal: General: Normal range of motion. Cervical back: Normal range of motion. Skin: General: Skin is warm. Neurological: General: No focal deficit present. Mental Status: She is alert and oriented to person, place, and time. Comments: tremor Psychiatric: Mood and Affect: Mood normal. Behavior: Behavior normal. Medications: Scheduled PRN amitriptyline, 50 mg, Oral, Nightly [Held by provider] aspirin, 81 mg, Oral, Daily Calcium Carb-Cholecalciferol, 1 tablet, Oral, BID cefTRIAXone, 1,000 mg, IntraVENous, q24h fludrocortisone, 0.1 mg, Oral, BID heparin, 5,000 Units, SubCUTAneous, 3 times per day influenza, 0.5 mL, IntraMUSCular, Once levothyroxine, 100 mcg, Oral, qAM AC melatonin, 3 mg, Oral, Nightly [Held by provider] mycophenolate, 1,000 mg, Oral, q AM [Held by provider] mycophenolate, 500 mg, Oral, qPM pantoprazole, 40 mg, Oral, BID AC predniSONE, 5 mg, Oral, Daily sodium chloride 0.9%, 5-40 mL, IntraVENous, q12h PRN medications: acetaminophen OR acetaminophen, ondansetron ODT OR ondansetron, polyethylene glycol (PEG) 3350, sodium chloride, sodium chloride 0.9%, sucralfate Continuous Assessment Data: (CAT1) Reviewed 3 or more notes from different specialty or health system (each=1). (LOW: 2x CAT1 or independent historian MOD: 3x CAT1 or 1x CAT3 EXTENSIVE: 3x CAT1 and 1x CAT3) Acute, acute on chronic, unstable/uncontrolled chronic problems/diagnoses: UTI sepsis B/l hydroureteronephrosis MANJIT on CKD3a Concern for seizure Recurrent falls Dysphagia Esophageal dysmotility Concern for esophagitis Stable chronic problems affecting care, new non-acute diagnoses: Hyponatremia Chronic interstitial cystitis ILD/NSIP- cellcept being held in setting of infection Hypothyroidism Pre DM2 Tremors Hx tardive dyskinesia Drug induced parkinsonism Plan As a result of the above findings & factors, the following mgmt was pursued: - Urology evaluated and plan for repeat CT a/p w/o IV contrast - GI evaluated and plan on EGD once hemodynamic improve - neurology to see - TTE pending - monitor on telemetry - continue abx - am labs, replace lytes prn - PT/OT/CM/SW - delirium precautions: - DVT prophylaxis: enoxaparin and encourage ambulation Advance Directive: Full Code Anticipated Discharge - Date - 2-3 days - Location - - Pending the following - clinical improvement (more content not included)...[facility]10-20-20[facility] Consult note* Kayli Velasquez MD - 03/05/2024 9:37 AM EDT General Neurology Consult Patient: Eren Merchant Date of : 1960 Acct: [id number] PCP: Priyanka Smith Date of Admission: 03/04/2024 Date of Service: Pt seen/examined on 03/05/24 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: Seizure like activity History Of Present Illness: 63 y.o. 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 Patient has had two recent episodes which prompted her transfer to [facility] for further workup. On 02/26/24, patient was talking to her dad on the phone. The next thing she remembers is lying on the ground. No warning. She believes she had LOC but does not know duration. Estimates less than one minute. She denies denies tongue bite or b/b incontinence. No clear post-ictal symptoms. Her BP's run low attimes and she is on propranolol. PCP attributed to possible hypotension. She had another episode while at the urologist's office on 03/03/24. She walked up to call center receptionist desk, all of a sudden both arms started shaking, she felt weak, and next thing she knew she was on the ground. Witnesses stated patient had full body shaking. Unknown duration. Patient denies LOC, tongue bite, or b/b incontinence. She remembers the entire episode. Patient has no history of seizures. She does transient episodes of dizziness (light-headed, no vertigo), sometimes associated with worsening tremor and falls. Seizure Risk Factors: 1. Head trauma (no); 2. PHYSICIAN OFFICE NURSE infections (no); 3. Family history of seizures (yes, brother); 4. Developmental delay (no); 5. Febrile seizures (no); 6. PHYSICIAN OFFICE NURSE tumors (no); 7. PHYSICIAN OFFICE NURSE vascular disease (no); 8. Significant medical history: CKD, ILD, current complicated UTI; 9. and early development: normal and early development Patient presented to [facility] and was found to be tachycardic. She had a WBC of 20, plts 455, sodium 130 and MANJIT (Scr 3.1). CXR with L basilar atelectasis. D Dimer elevated at 3.44, CTA chestnegative for PE. CT Head negative for acute abn. UA concerning for infection and patient was started on empiric rocephin. CT A/P with b/l hydroureteronephrosis, urethritis, and cystitis. There was also concern for possible ureteral malignancy and for this concern [employer] urology recommended transfer to [facility]. As far as neurologic history: Patient was seen by outpatient neurology, Dr. Roberts, on 01/13/24 for tremor, tardive dyskinesia, and drug induced PD (reglan). Patient reported 1.5 years of b/l hand shaking/tremors and abnormal tongue movements. She was prescribed propranolol for tremors by her PCP which helped some (mostly with abnormal mouth movements). The plan at that time was to wean off reglan and then reassess for improvement in PD symptoms. Since of this week per propranolol was stopped for concern of hypotension. Past Medical History: Past Medical History: Diagnosis Date Arthritis Cancer (CMS/HCC) (HCC) Disease of thyroid gland Past Surgical History: Past Surgical History: Procedure Laterality Date BACK SURGERY CHOLECYSTECTOMY COLON SURGERY THYMECTOMY stated per patient, for cancer removal Home Medications: Prior to Admission medications Medication Sig Start Date End Date Taking? Authorizing Provider Calcium Carb-Cholecalciferol 600-10 MG-MCG tablet Take 1 tablet by mouth in the morning and 1 tablet in the evening. 02/25/23 Yes Historical Provider, ondansetron (Zofran) 4 MG tablet Take 4 mg by mouth every 8 hours as needed for nausea or vomiting.New prescription, unsure of times or dose Yes Historical Provider, amitriptyline (Elavil) 75 MG tablet Take 75 mg by mouth Nightly. Historical Provider, Apoaequorin (Prevagen) 10 MG capsule Take 10 mg by mouth daily. Historical Provider, aspirin 81 MG EC tablet Take 81 mg by mouth in the morning. Historical Provider, biotin 5000 MCG capsule Take 5,000 mcg by mouth daily. OTC per patient Historical Provider, levothyroxine (Synthroid, Levoxyl) 75 MCG tablet Take 75 mcg by mouth every morning (before breakfast). Historical Provider, mycophenolate (Cellcept) 500 MG tablet Take 1,000 mg by mouth 2 times daily. 1000 mg in morning [id number] at night per patient Historical Provider, predniSONE (Deltasone) 5 MG tablet Take 5 mg by mouth daily. Historical Provider, Calcium Carbonate-Vitamin D 500-5 MG-MCG tablet Take 5 mg by mouth in the morning and 5 mg in the evening. 03/04/24 Historical ProviderMD Current Hospital Medications: Current Facility-Administered Medications: acetaminophen (Tylenol) tablet 650 mg, 650 mg, Oral, q6h PRN OR acetaminophen (Tylenol) suppository 650 mg, 650 mg, Rectal, q6h PRN, Maurilio Groves MD amitriptyline (Elavil) tablet 50 mg, 50 mg, Oral, Nightly, Maurilio Groves MD, 50 mg at 03/04/242020 [Held by provider] aspirin EC tablet 81 mg, 81 mg, Oral, Daily, Maurilio Groves MD Calcium Carb-Cholecalciferol 500-5 MG-MCG per tablet 1 tablet, 1 tablet, Oral, BID, Maurilio Groves MD, 1 tablet at 03/05/24 0815 cefTRIAXone (Rocephin) 1,000 mg in sodium chloride 0.9 % 50 mL IVPB Mini-Bag Plus, 1,000 mg, IntraVENous, q24h, Maurilio Groves MD, Stopped at 03/05/24 0431 fludrocortisone (Florinef) tablet 0.1 mg, 0.1 mg, Oral, BID, Maurilio Groves MD, 0.1 mg at 03/04/24 2213 heparin injection 5,000 Units, 5,000 Units, SubCUTAneous, 3 times per day, Maurilio Groves MD, 5,000 Units at 03/05/24 0600 influenza vaccine A&B surf ant adjuvanted (Fluad) HIGH-DOSE injection 0.5 mL, 0.5 mL, IntraMUSCular, Once, Maurilio Groves MD levothyroxine (Synthroid, Levoxyl) tablet 100 mcg, 100 mcg, Oral, qAM AC, Maurilio Groves MD, 100 mcg at 03/05/24 0600 melatonin tablet 3 mg, 3 mg, Oral, Nightly, Maurilio Groves MD [Held by provider] mycophenolate (Cellcept) capsule 1,000 mg, 1,000 mg, Oral, q AM, Maurilio Groves MD [Held by provider] mycophenolate (Cellcept) capsule 500 mg, 500 mg, Oral, qPM, Maurilio Groves MD ondansetron ODT (Zofran-ODT) disintegrating tablet 4 mg, 4 mg, Oral, q8h PRN OR ondansetron (Zofran) injection 4 mg, 4 mg, IntraVENous, q6h PRN, Maurilio Groves MD pantoprazole (ProtoNix) EC tablet 40 mg, 40 mg, Oral, BID AC, Maurilio Groves MD, 40 mg at 03/05/24 0600 polyethylene glycol (PEG) 3350 (Miralax) packet 17 g, 17 g, Oral, Daily PRN, Maurilio Groves MD predniSONE (Deltasone) tablet 5 mg, 5 mg, Oral, Daily, Maurilio Groves MD, 5 mg at 03/05/24 0815 sodium chloride 0.9 % infusion, 5-250 mL/hr, IntraVENous, PRN, Maurilio Groves MD sodium chloride 0.9% (NS) flush 5-40 mL, 5-40 mL, IntraVENous, q12h, Maurilio Groves MD, 10 mL at 03/05/24 0245 sodium chloride 0.9% (NS) flush 5-40 mL, 5-40 mL, IntraVENous, PRN, Maurilio Groves MD sucralfate (Carafate) tablet 1 g, 1 g, Oral, 4x daily PRN, Maurilio Groves MD Allergies: Azithromycin and Seasonal Social History: TOBACCO: reports that she has never smoked. She has never used smokeless tobacco. ETOH: reports no history of alcohol use. RECREATIONAL DRUG USE: Social History Substance and Sexual Activity Drug Use Never Family History: No family history on file. REVIEW OF SYSTEMS: CONSTITUTIONAL: negative for fevers and chills, nightsweats EYES: negative for irritation and redness, change in visual acuity HEENT: negative for earaches, ear drainage, and nasal congestion RESPIRATORY: negative for dry cough, wheezing and chest pain CARDIOVASCULAR: negative for palpitations, dyspnea, chest pain GASTROINTESTINAL: negative for nausea, vomiting and change in bowel habits GENITOURINARY: negative for change in frequency, dysuria and hematuria ENDOCRINE: negative for heat or cold intolerance of significant weight change MUSCULOSKELETAL: negative for myalgias, arthralgias and pain NEUROLOGICAL: Positive for LOC and AMS episodes BEHAVIOR/PSYCH: negative for significant mood changes, anxiety, or agitation PHYSICAL EXAM: BP 128/90 (BP Location: Left arm, Patient Position: Lying) Pulse 112 Temp 36.1 C (97 F) (Temporal) Resp 18 Ht 1.651 m (5' 5) Wt 80.7 kg (178 lb) SpO2 98% BMI 29.62 kg/m General Appearance: NAD Cardiovascular: +S1, S2 Pulmonary: +BS Abdomen: Soft, nontender, nondistended Skin: Intact Extremities: Bilateral lower extremity edema Mental Status Exam: Level of Alertness: awake Orientation: x 3 Memory: normal Fund of Knowledge: normal Attention/Concentration: normal Language: normal Funduscopic Exam: Attempted, discs not well visualized Cranial Nerves Cranial nerve II Visual acuity: normal Visual saavedra: normal Cranial nerve III Pupils: equal, round, reactive to light Cranial nerves III, IV, Extraocular Movements: intact Cranial nerve V Facial sensation: intact Cranial nerve VII Facial strength: intact Cranial nerve VIII Hearing: intact Cranial nerve IX Palate: intact Cranial nerve XI Shoulder shrug: intact Cranial nerve XII Tongue movement: normal Motor: Drift: absent Motor: 5/5 throughout Tone: normal Abnormal Movements: absent Sensory: Temperature Right Upper Extremity: normal Left Upper Extremity: normal Right Lower Extremity: normal Left Lower Extremity: normal Touch Right Upper Extremity: normal Left Upper Extremity: normal Right Lower Extremity: normal Left Lower Extremity: normal Coordination: Finger/Nose Right: normal Left: normal Gait: Casual: Deferred secondary to fall risk Reflexes: Deep Tendon Reflexes: 2+ throughout Plantar response: Right: flexor Left: flexor Labs: Recent Labs 03/04/248 03/05/24 0400 WBC 15.3* 12.4* HGB 12.0 12.3 HCT 37.2 38.2 PLT 421 466* Recent Labs 03/04/248 03/05/24 0400 NA 131* 133* K 4.1 4.2 CL 104 102 CO2 18* 17* BUN 58* 60* CREATININE 2.46* 2.67* CALCIUM 10.5* 11.3* Recent Labs 03/04/248 AST 27 ALT 17 BILITOT 0.5 ALKPHOS 96 Recent Labs 03/04/24 1828 ALKPHOS 96 ALT 17 AST 27 BILITOT 0.5 Radiology: (personally reviewed) CT Head w/o contrast 03/04/24 ([facility]) Per report: no acute intracranial abn MRI Brain w/wo contrast 07/08/18 No acute intracranial findings. No intracranial mass or pathologic enhancement. Minimal sequela of chronic microvascular ischemia. CUS 01/02/19 RIGHT SIDE Internal carotid artery: 0-19% stenosis. Vertebral artery: Patent and antegrade flow noted. LEFT SIDE Internal carotid artery: 0-19% stenosis. Tortuous vessel at distal . Vertebral artery: Patent and antegrade flow noted. Neuro: None Cardiology: TTE 07/11/18 - Exam indication: Hypotention; Mediastinal mass - [...] a prior CC echocardiographic exam for comparison. 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 LOC/AMS episodes -Patient has occasional dizziness and more recent tremor and tardive dyskinesia -Recent episodes occurred in the setting of hypotension, UTI, MANJIT, hyponatremia -LOC episode: concern for syncope > seizure -Episode of abnormal body movements: concern for nonepileptic event -CT head (per outside report) negative for acute abn -Would obtain MRI brain/MRA's -TTE pending -Routine EEG -Orthostatics -Check TSH -No AED unless clinical seizure activity and/or abnormal neurologic testing -Maintain sz precautions Complicated UTI/abnormal CT A/P findings -Hx of chronic interstitial cystitis -Urology following here -On cefriaxone I spent total time 60 minutes reviewing previous notes, test results, and face to face with the patient discussing the diagnosis and importance of compliance with the treatment plan as well as documenting on the day of the visit. [employer] Phone: [phone] Consult note* Lexii Pablo MD - 03/05/2024 6:37 AM EDTAssociated Order(s): IP CONSULT TO GI Department of Internal Medicine Gastroenterology Attending Consult Note Reason for Consult: The patient was seen in consultation at the request of Dr Groves for esophagealthickening CHIEF COMPLAINT: dizziness History Obtained From: patient HISTORY OF PRESENT ILLNESS: The patient is a 63 y.o. female with significant past medical history of immunosuppression and dysphagia transferred from OSH for UTI with sepsis , hypotension and tachycardia. Found to have hydronephrosis. Was transferred here for urology evaluation. On CT incidentally found to have esophageal thickening. Patient has been suffering from chronic dysphagia for years and states has dysmotility. 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 Allergies: Azithromycin and Seasonal Current Medications: Current Facility-Administered Medications: acetaminophen (Tylenol) tablet 650 mg, 650 mg, Oral, q6h PRN OR acetaminophen (Tylenol) suppository 650 mg, 650 mg, Rectal, q6h PRN, Maurilio Groves MD amitriptyline (Elavil) tablet 50 mg, 50 mg, Oral, Nightly, Maurilio Groves MD, 50 mg at 03/04/242020 [Held by provider] aspirin EC tablet 81 mg, 81 mg, Oral, Daily, Maurilio Groves MD Calcium Carb-Cholecalciferol 500-5 MG-MCG per tablet 1 tablet, 1 tablet, Oral, BID, Maurilio Groves MD, 1 tablet at 03/04/242020 cefTRIAXone (Rocephin) 1,000 mg in sodium chloride 0.9 % 50 mL IVPB Mini-Bag Plus, 1,000 mg, IntraVENous, q24h, Maurilio Groves MD, Stopped at 03/05/24 0431 fludrocortisone (Florinef) tablet 0.1 mg, 0.1 mg, Oral, BID, Maurilio Groves MD, 0.1 mg at 03/04/24 2213 heparin injection 5,000 Units, 5,000 Units, SubCUTAneous, 3 times per day, Maurilio Groves MD, 5,000 Units at 03/04/24 2241 influenza vaccine A&B surf ant adjuvanted (Fluad) HIGH-DOSE injection 0.5 mL, 0.5 mL, IntraMUSCular, Once, Maurilio Groves MD levothyroxine (Synthroid, Levoxyl) tablet 100 mcg, 100 mcg, Oral, qAM AC, Maurilio Groves MD melatonin tablet 3 mg, 3 mg, Oral, Nightly, Maurilio Groves MD [Held by provider] mycophenolate (Cellcept) capsule 1,000 mg, 1,000 mg, Oral, q AM, Maurilio Groves MD [Held by provider] mycophenolate (Cellcept) capsule 500 mg, 500 mg, Oral, qPM, Maurilio Groves MD ondansetron ODT (Zofran-ODT) disintegrating tablet 4 mg, 4 mg, Oral, q8h PRN OR ondansetron (Zofran) injection 4 mg, 4 mg, IntraVENous, q6h PRN, Maurilio Groves MD pantoprazole (ProtoNix) EC tablet 40 mg, 40 mg, Oral, BID AC, Maurilio Groves MD polyethylene glycol (PEG) 3350 (Miralax) packet 17 g, 17 g, Oral, Daily PRN, Maurilio Groves MD predniSONE (Deltasone) tablet 5 mg, 5 mg, Oral, Daily, Maurilio Groves MD sodium chloride 0.9 % infusion, 5-250 mL/hr, IntraVENous, PRN, Maurilio Groves MD sodium chloride 0.9% (NS) flush 5-40 mL, 5-40 mL, IntraVENous, q12h, Maurilio Groves MD, 10 mL at 03/05/24 0245 sodium chloride 0.9% (NS) flush 5-40 mL, 5-40 mL, IntraVENous, PRN, Maurilio Groves MD sucralfate (Carafate) tablet 1 g, 1 g, Oral, 4x daily PRN, Maurilio Groves MD Past Medical History: Active Ambulatory Problems Diagnosis Date Noted Esophageal dysmotility 07/31/2020 Hyponatremia 06/14/2018 Chronic interstitial cystitis 03/03/2024 ILD (interstitial lung disease) ([facility]) 03/25/2020 Lung nodules 02/12/2020 NSIP (nonspecific interstitial pneumonitis) ([facility]) 10/30/2022 Stage 3a chronic kidney disease ([facility]) 01/12/2023 Post-menopausal bleeding 11/25/2018 Acquired hypothyroidism 03/04/2024 Resolved Ambulatory Problems Diagnosis Date Noted No Resolved Ambulatory Problems Past Medical History: Diagnosis Date Arthritis Cancer ([facility]/HCC) ([facility]) Disease of thyroid gland Past Surgical History: Social History Socioeconomic History Marital status: Spouse name: Not on file Number of children: Not on file Years of education: Not on file Highest education level: Not on file Occupational History Not on file Tobacco Use Smoking status: Never Smokeless tobacco: Never Vaping Use Vaping status: Never Used Substance and Sexual Activity Alcohol use: Never Drug use: Never Sexual activity: Not Currently Other Topics Concern Not on file Social History Narrative Not on file Social Determinants of Health Financial Resource Strain: High Risk (03/26/2020) Received from [facility] Overall Financial Resource Strain (CARDIA) Difficulty of Paying Living Expenses: Very hard Food Insecurity: No Food Insecurity (03/26/2020) Received from [facility] Hunger Vital Sign Worried About Running Out of Food in the Last Year: Never true Ran Out of Food in the Last Year: Never true Transportation Needs: No Transportation Needs (03/26/2020) Received from [facility] PRAPARE - Transportation Lack of Transportation (Medical): No Lack of Transportation (Non-Medical): No Physical Activity: Inactive (06/22/2023) Received from [facility] Exercise Vital Sign Days of Exercise per Week: 0 days Minutes of Exercise per Session: 0 min Stress: No Stress Concern Present (09/03/2019) Received from [facility] [place] [place] [employer] - Occupational Stress Questionnaire Feeling of Stress : Not at all Social Connections: Unknown (03/01/2020) Received from [facility] Social Connection and Isolation Panel [NHANES] Frequency of Communication with Friends and Family: Three times a week Frequency of Social Gatherings with Friends and Family: Three times a week Attends Sikh Services: Not on file Active Member of Clubs or Organizations: Not on file Attends Club or Organization Meetings: Not on file Marital Status: Not on file Intimate Partner Violence: Not At Risk (03/04/2024) Humiliation, Afraid, Rape, and Kick questionnaire Fear of Current or Ex-Partner: No Emotionally Abused: No Physically Abused: No Sexually Abused: No Housing Stability: Not on file Family History: No family history on file. No family history colon or stomach cancer. Social History: TOBACCO: reports that she has never smoked. She has never used smokeless tobacco. ETOH: reports no history of alcohol use. DRUGS: reports no history of drug use. 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 Normal appetite and weight. No LEBLANC, visual disturbance, eye pain, jaundice, sore throat or mouth ulcers. No skin rash or itching. No CP, SOB, PAINTER, cough or wheeze. No urinary frequency, urgency, hematuria, or dysuria. No myalgia, arthralgia, or joint swelling. No weakness, numbness, or confusion. GI per HPI. No polyuria, polydipsia, heat or cold intolerance. PHYSICAL EXAM: VS: BP 112/75 (BP Location: Left arm, Patient Position: Lying) Pulse 114 Temp 36.3 C (97.4 F) (Temporal) Resp 18 Ht 5' 5 (1.651 m) Wt 178 lb (80.7 kg) SpO2 98% BMI 29.62 kg/m Body massindex is 29.62 kg/m . Constitutional: No acute distress. Well-nourished. Well hydrated Head/Eyes: Pupils are equal and round; Conjunctiva are not injected; Sclera are non-icteric. ENT: Ears/nose without external abnormalities. Oral mucosa is pink and moist. Neck: No JVD. No carotid bruits; No thyromegaly. Respiratory: Clear to auscultation bilaterally without any added sounds. Effort is normal Heart: Regular, Normal S1 and S2. No murmur; No added sounds. Abdomen: Normal BS, soft, non-tender, non-distended; no hepatomegaly. Extremities/Skin: No LE edema; Skin warm to touch and well perfused. Musculoskeletal: Head - normocephalic. Neck - supple DATA: Recent blood work and relevant radiologic and endoscopic studies were reviewed and discussed with the patient. CBC: Recent Labs 03/04/24182703/05/24 0400 WBC 15.3* 12.4* RBC 4.66 4.87 HGB 12.0 12.3 HCT 37.2 38.2 MCV 79.8 78.4 MCH 25.8* 25.3* MCHC 32.3 32.2 RDW 15.2* 15.3* PLT 421 466* MPV 10.3 10.3 CMP: Recent Labs 03/04/24182703/05/24 0400 NA 131* 133* K 4.1 4.2 CL 104 102 CO2 18* 17* BUN 58* 60* CREATININE 2.46* 2.67* GLUCOSE 111* 120* CALCIUM 10.5* 11.3* PROT 7.7 -- BILITOT 0.5 -- ALKPHOS 96 -- AST 27 -- ALT 17 -- IMPRESSION/RECOMMENDATIONS: 63 yr old female who is on immunosuppression admitted with UTI and sepsis. Consult called for incidental finding of esophageal thickening on imaging. She does have issues with swallowing which have worsen after Reglan was stopped per patient. On reviewing her chart, she has been treated for brad multiple times , her EGD in 2020 showed brad. She also had manometry in 2020 which was consistent with ineffective esophageal motility. Her symptoms and clinical picture is suggestive of dysmotility, gastroesophageal reflux disease or brad esophagitis. She states her GI doctor has moved and she has no right of way supervisor. Usually we ll treat for brad esophagitis empirically however with no recent EGD and concerning CT findings which is not available for review, needs further investigation. Her current acute issue is sepsis however, once her hemodynamics are improved, can perform an EGD to rule out any advanced lesion given the imaging findings. If negative, recommend she establishes with a local GI in [place] for ongoing care for dysmotility. Will follow the clinical course. No EGD planned for tomorrow. [facility] [employer] Phone: [phone] Plan of care note* Care Plan - Teri Alejo RN - 03/05/2024 5:26 AM EDT Problem: Pain - Adult Goal: Verbalizes/displays adequate comfort level or baseline comfort level Outcome: Progressing Problem: Safety - Adult Goal: Free from fall injury Outcome: Progressing Problem: Discharge Planning Goal: Discharge to home or other facility with appropriate resources Outcome: Progressing Problem: Chronic Conditions and Co-morbidities Goal: Patient's chronic conditions and co-morbidity symptoms are monitored and maintained or improved Outcome: Progressing [employer] [id number] Nurse Note* Bertha Zavala RN - 03/05/2024 3:24 AM EDT Patient had orthostatic vitals taken, blood pressure standing was 83/55. Rapid notified, told to reach out to doctor. Doctor notified and no further orders placed. 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 Patient taken to in stable condition. [id number] History and physical note* Maurilio Groves MD - 03/04/2024 2:37 PM EDT Attending History and Physical Admit Date: 03/04/2024 PCP: Priyanka Smith CHIEF COMPLAINT: OSH transfer Reason for Admission: Eren Henry, 1960 is at [facility] ED. Pt has been in ED at [place] [employer] for pyelonephritis with possible neoplastic process. Hospitalist at [place] [employer] unable to care for pt at [place] [employer]. Pt cannot have contrast due to MANJIT (creat 3.1). [employer] reached out to [facility] yesterday but still don't have a bed. Dr Jaguar Mckeon spoke with Dr. Noel Contreras here at [facility] and pt accepted to [facility] by Dr Contreras. History Obtained From: Medical records and patient HISTORY OF PRESENT ILLNESS: Eren is a 63 y.o. 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 Report was not received by this admitter, and pts medical needs for transfer were largely presumed based off documented clinical course from outside ED. Pt was only sent with paper records without image disk, images not able to be obtained electronically on day of admission. Ultimately pt presented to [facility] for chief complaint of seizure-like activity. Reported she had 2 episodes of syncope, one occurring at home and one at her urologists office. At home, she reports that she was standing and talking on the phone with her dad, and the next thing she remembers is lying down on the ground. Does not recall preceding symptoms. The second episode, which occurred at her urologists outpatient practice, she reports that bystanders witnessed seizure-like activity at the office, stating she had full body shaking without control of her body; denies LOC, tongue biting, urinary incontinence during this episode. At outside ED pt was tachycardic to 120s, EKG with sinus tachy. CBC with leukocytosis to 19.5, thrombocytosis to 455. BMP with sodium 130, Cr 3.1 (recent Cr from 01/2024 1.75). CXR was without pneumonia, effusion, cardiomegaly, or PTX; did demonstrate L basilar atelectasis. D-dimer elevated at 3.44,CTA chest ordered and was negative for PE, however it demonstrated nodules within R lobe of thyroidgland necessitating OP ultrasound. Also demonstrated circumferential wall thickening of mid and distal esophagus concerning for esophagitis, but unable to exclude neoplastic process. UA concerning for infection, pt started on rocephin and culture sent out. CT AP without contrast ordered to r/o infected urolithiasis - this demonstrated BL hydroureteronephrosis associated with filling defect withinR proximal ureter with concern for possible neoplastic process, BL ureteral wall thickening suggestive of urethritis, and bladder wall thickening with adjacent stranding c/w cystitis. Given concern for malignancy, urology at [facility] recommended transfer and medical admission for further workup. Prior to her transfer, ED started pt on fludrocortisone 0.1mg PO BID. Upon assessment at [facility], pt reiterated much of what was documented above. Specifically, she denies any sort of preceding symptoms with her syncopal episodes. With her most recent episode at the outpatient urologists clinic, she says she walked in to the waiting room (denied standing from seated position) and up to the receptionists window to check in; all of a sudden she felt both her arms shaking, followe dby feeling of generalized weakness, and the next thing she knew she was on the ground. Denied chest pain, SOB, palpitations, lightheadedness, vision changes, LOC. She does report she was late to her appointment, therefore it is possible that this episode was precipitated by stress. Pt denies current weakness, numbness, tingling, f/c, chest pain, palpitations, SOB, abd pain, n/v, dysuria, d/c. Past Medical History: Past Medical History: Diagnosis Date Arthritis Cancer (CMS/HCC) (HCC) Disease of thyroid gland Past Surgical History: Past Surgical History: Procedure Laterality Date BACK SURGERY CHOLECYSTECTOMY COLON SURGERY THYMECTOMY stated per patient, for cancer removal Social History: Social History Socioeconomic History Marital status: Spouse name: Not on file Number of children: Not on file Years of education: Not on file Highest education level: Not on file Occupational History Not on file Tobacco Use Smoking status: Not on file Smokeless tobacco: Not on file Substance and Sexual Activity Alcohol use: Not on file Drug use: Not on file Sexual activity: Not on file Other Topics Concern Not on file Social History Narrative Not on file Social Determinants of Health Financial Resource Strain: High Risk (03/26/2020) Received from [facility] Overall Financial Resource Strain (CARDIA) Difficulty of Paying Living Expenses: Very hard Food Insecurity: No Food Insecurity (03/26/2020) Received from [facility] Hunger Vital Sign Worried About Running Out of Food in the Last Year: Never true Ran Out of Food in the Last Year: Never true Transportation Needs: No Transportation Needs (03/26/2020) Received from [facility] PRAPARE - Transportation Lack of Transportation (Medical): No Lack of Transportation (Non-Medical): No Physical Activity: Inactive (06/22/2023) Received from [facility] Exercise Vital Sign Days of Exercise per Week: 0 days Minutes of Exercise per Session: 0 min Stress: No Stress Concern Present (09/03/2019) Received from [facility] [place] [place] [employer] - Occupational Stress Questionnaire Feeling of Stress : Not at all Social Connections: Unknown (03/01/2020) Received from [facility] Social Connection and Isolation Panel [NHANES] Frequency of Communication with Friends and Family: Three times a week Frequency of Social Gatherings with Friends and Family: Three times a week Attends Sikh Services: Not on file Active Member of Clubs or Organizations: Not on file Attends Club or Organization Meetings: Not on file Marital Status: Not on file Intimate Partner Violence: Not on file Housing Stability: Not on file Family History: No family history on file. Medications Prior to Admission: No current facility-administered medications on file prior to encounter. No current outpatient medications on file prior to encounter. Allergies: Allergies Allergen Reactions Azithromycin Diarrhea Severe diarrhea Seasonal Other Stuffy/runny nose REVIEW OF SYSTEMS: Negative apart from above Vitals: BP 139/92 (BP Location: Left arm, Patient Position: Sitting) Pulse 105 Temp 36.3 C (97.4 F) (Tympanic) Resp 16 Ht 5' 5 (1.651 m) Wt 178 lb (80.7 kg) SpO2 93% BMI 29.62 kg/m BMI Classification: Overweight (BMI 25.0-29.9) Pulse Ox: SpO2 Av % Min: 93 % Max: 93 % Supplemental O2: PHYSICAL EXAM: Physical Exam Vitals reviewed. Constitutional: General: She is not in acute distress. Appearance: Normal appearance. She is not ill-appearing or diaphoretic. HENT: Mouth/Throat: Mouth: Mucous membranes are moist. Eyes: Extraocular Movements: Extraocular movements intact. Cardiovascular: Rate and Rhythm: Regular rhythm. Tachycardia present. Pulses: Normal pulses. Heart sounds: Normal heart sounds. Pulmonary: Effort: No respiratory distress. Breath sounds: Normal breath sounds. No stridor. No wheezing or rhonchi. Abdominal: General: Abdomen is flat. Palpations: Abdomen is soft. Musculoskeletal: Right lower leg: No edema. Left lower leg: No edema. Skin: General: Skin is warm and dry. Comments: Vitiligo Neurological: Mental Status: She is alert and oriented to person, place, and time. Comments: Mildly tremulous Psychiatric: Mood and Affect: Mood normal. Behavior: Behavior normal. DATA: CBC: No results for input(s): WBC, RBC, HGB, HCT, MCV, RDW, PLT in the last 72 hours. BMP:No results for input(s): NA, K, CL, CO2, BUN, CREATININE, GLUCOSE, CALCIUM, ANIONGAP in the last 72 hours. LIVER PROFILE:No results for input(s): AST, ALT, BILITOT, ALKPHOS, PROT in the last 72 hours. No lab exists for component: LABALBU PT/INR: No results for input(s): PROTIME, INR in the last 72 hours. CARDIAC ENZYMES: No results for input(s): TROPONINI in the last 72 hours. Procalcitonin: No results found for: PROCAL Urine Culture: No results found for this or any previous visit. COVID-19 PCR: No results for input(s): COVID19 in the last 72 hours. I reviewed: [x] laboratory results [x] radiographic results At the time of today's encounter. Pt was advised of the results. Data: (CAT1) Reviewed 3 or more notes from different specialty or health system (each=1). (CAT1) Ordered 3 or more new labs and/or studies (each=1, panels count as 1). (LOW: 2x CAT1 or independent historian MOD: 3x CAT1 or 1x CAT3 EXTENSIVE: 3x CAT1 and 1x CAT3) Assessment Discussed management with the ED provider and agree with hospitalization. Acute, acute on chronic, unstable/uncontrolled chronic problems/diagnoses: #Complicated UTI with BL hydroureteronephrosis with c/f pyelonephritis #Filling defect within R proximal ureter #MANJIT on CKD3a -CT AP w/o contrast showed low-attenuation 8x3 mm intraluminal filling defect within proximal R ureter. -BL hydroureteronephrosis associated with filling defect within R proximal ureter with concern for possible neoplastic process, BL ureteral wall thickening suggestive of urethritis, and bladder wall thickening with adjacent stranding c/w cystitis. Plan: -Urology at outside ED may have been reluctant to perform PCNT placement in presence of MANJIT, however not clear per transfer notes. -On admission, pt was discussed with [facility] urology whom recommended repeat imaging if unable to obtain image disks. -Ordered renal ultrasound for now, will consult urology to weigh in on intervention and further workup for ureteral filling defect. #Lightheadedness #Recurrent falls #?seizure episode -Recent OP office visit: Had a fall on Wednesday morning, just fell. No dizziness at that time. Bp lowin office today. Taking Propranolol 20 mg BID for tremor. Episodes are random, usually will be standing when she gets dizzy. No chest pain, palitations, or edema. Hit right ribs on Wednesday, hit a rocking chair, no LOC. PCP thought it was related to hypotension 2/2 propranolol. -Urology office visit 03/03 documents she had witnessed fall vs seizure in office waiting room, recommended ED evaluation. -03/03: CTH, C-spine without acute process. ED started pt on fludrocortisone 0.1mg PO BID. Plan: -Orthostats -Monitor tele -Neuro consult -Echo ordered -Consider AI workup in setting of other autoimmune diseases #Dysphagia #Esophageal dysmotility #Circumferential wall thickening of mid and distal esophagus on CT - concerning for esophagitis, but unable to exclude neoplastic process -was on reglan, stopped recently by neuro 12/2023 due to tardive dyskinesia. Plan: -GI consulted Stable chronic problems affecting care, new non-acute diagnoses: #Hyponatremia -Pt started on NaCl 1g TID by ED 03/04 #Chronic interstitial cystitis -Follows with OP urology. On 03/03 documented the following: recommend titrating down and off of amitryptiline while she is undergoing neuro/falls/seizure workup. Elavil is helpful kimber at night, but given large increase in falls recently safest to be off of it. Can discuss once acute issue resolvesif safe to restart. Taper discussed as 50mg 4-5d, then 25mg 4- 5 days then stop. #ILD/NSIP -On current regimen of cellcept, prednisone 5mg daily. Plan: -Cont home prednisone. Held cellcept given infection concern. #Prediabetes -A1c 5.9 01/31/24, trend BMP #Hypothyroidism -TSH 1.490 12/16/23 #Tremors #Hx tardive dyskinesia, medication induced #Hx Drug-induced parkinsonism -Neuro 12/2023: -Involuntary mouth and tongue movements consistent with tardive dyskinesia, likely secondary to long-term use of metoclopramide since 2018. No history of antipsychotic use. Movements are noticeable but not currently causing significant functional impairment. -Exhibits bradykinesia, rigidity, and tremor, which may be indicative of drug- induced parkinsonism due to metoclopramide use. Differential diagnosis includes primary Parkinson's disease, but symptomsare symmetric, affecting both sides equally, which is more consistent with drug-induced etiology Plan As a result of the above findings & factors, the following mgmt was pursued: - as above - am labs, replace lytes prn - PT/OT/CM/SW - delirium precautions: increase activity and limit nighttime disturbances - DVT prophylaxis: heparin and encourage ambulation Complexity: Undiagnosed new problem with uncertain prognosis (MOD). Acute illness with systemic symptoms (MOD). Risk: Admission to hospital-level care was considered or occurred (HIGH). Prescription drug/IVF/colloid was initiated, discontinued, adjusted; or reviewed with decision to maintain current orders (MOD). Advance Directive: Full Code Anticipated Discharge - Date - TBD - Location - Likely home - Pending the following - clinical course Total time spent (which include face to face and non face to face encounters) : 120 minutes. Extended Emergency Contact Information Primary Emergency Contact: Shelton Merchant Mobile Relation: Son Preferred language: Bahamian Printed Circuit Photographer needed? No Secondary Emergency Contact: Michael Merchant Mobile Relation: Significant Other Preferred language: Bahamian Printed [employer] Photographer needed? No [employer] Eren Merchant : 1960 Primary Care Physician: Priyanka Smith The patient and/or family/surrogate voluntarily agreed to participate in ACP services. Patient s cognitive capacity: AOX4 Code Status: [X] [FULL CODE - Continue all advanced life support: CPR,intubation,invasive procedures] [_] [DNR-CCA - DO NOT do CPR, intubation] [_] [DNR-SCRIPT EDITOR - Comfort care only] [_] DNR form [was/was not] signed Maurilio Groves MD Division of Hospitalist Medicine [id number] NoteAttending History and Physical Admit Date: 03/04/2024 PCP: Priyanka Smith CHIEF COMPLAINT: OSH transfer Reason for Admission: Eren Bellerobinrajan, 1960 is at [facility] ED. Pt has been in ED at [facility] for pyelonephritis with possible neoplastic process. Hospitalist at [facility] unable to care for pt at [facility]. Pt cannot have contrast due to MANJIT (creat 3.1). [facility] reached out to [facility] yesterday but still don't have a bed. Dr Jaguar Mckeon spoke with Dr. Noel Contreras here at [facility] and pt accepted to [facility] by Dr Contreras. History Obtained From: Medical records and patient HISTORY OF PRESENT ILLNESS: Eren is a 63 y.o. 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 Report was not received by this admitter, and pts medical needs for transfer were largely presumed based off documented clinical course from outside ED. Pt was only sent with paper records without image disk, images not able to be obtained electronically on day of admission. Ultimately pt presented to [facility] for chief complaint of seizure-like activity. Reported she had 2 episodes of syncope, one occurring at home and one at her urologists office. At home, she reports that she was standing and talking on the phone with her dad, and the next thing she remembers is lying down on the ground. Does not recall preceding symptoms. The second episode, which occurred at her urologists outpatient practice, she reports that bystanders witnessed seizure-like activity at the office, stating she had full body shaking without control of her body; denies LOC, tongue biting, urinary incontinence during this episode. At outside ED pt was tachycardic to 120s, EKG with sinus tachy. CBC with leukocytosis to 19.5, thrombocytosis to 455. BMP with sodium 130, Cr 3.1 (recent Cr from 01/2024 1.75). CXR was without pneumonia, effusion, cardiomegaly, or PTX; did demonstrate L basilar atelectasis. D-dimer elevated at 3.44, CTA chest ordered and was negative for PE, however it demonstrated nodules within R lobe of thyroid gland necessitating OP ultrasound. Also demonstrated circumferential wall thickening of mid and distal esophagus concerning for esophagitis, but unable to exclude neoplastic process. UA concerning for infection, pt started on rocephin and culture sent out. CT AP without contrast ordered to r/o infected urolithiasis - this demonstrated BL hydroureteronephrosis associated with filling defect within R proximal ureter with concern for possible neoplastic process, BL ureteral wall thickening suggestive of urethritis, and bladder wall thickening with adjacent stranding c/w cystitis. Given concern for malignancy, urology at [facility] recommended transfer and medical admission for further workup. Prior to her transfer, ED started pt on fludrocortisone 0.1mg PO BID. Upon assessment at [facility], pt reiterated much of what was documented above. Specifically, she denies any sort of preceding symptoms with her syncopal episodes. With her most recent episode at the outpatient urologists clinic, she says she walked in to the waiting room (denied standing from seated position) and up to the receptionists window to check in; all of a sudden she felt both her arms shaking, followe dby feeling of generalized weakness, and the next thing she knew she was on the ground. Denied chest pain, SOB, palpitations, lightheadedness, vision changes, LOC. She does report she was late to her appointment, therefore it is possible that this episode was precipitated by stress. Pt denies current weakness, numbness, tingling, f/c, chest pain, palpitations, SOB, abd pain, n/v, dysuria, d/c. Past Medical History: Past Medical History: Diagnosis Date Arthritis Cancer (CMS/HCC) (HCC) Disease of thyroid gland Past Surgical History: Past Surgical History: Procedure Laterality Date BACK SURGERY CHOLECYSTECTOMY COLON SURGERY THYMECTOMY stated per patient, for cancer removal Social History: Social History Socioeconomic History Marital status: Spouse name: Not on file Number of children: Not on file Years of education: Not on file Highest education level: Not on file Occupational History Not on file Tobacco Use Smoking status: Not on file Smokeless tobacco: Not on file Substance and Sexual Activity Alcohol use: Not on file Drug use: Not on file Sexual activity: Not on file Other Topics Concern Not on file Social History Narrative Not on file Social Determinants of H (more content not included)...[facility] 03-04-2024 NoteAttending History and Physical Admit Date: 03/04/2024 PCP: Priyanka Smith CHIEF COMPLAINT: OSH transfer Reason for Admission: Eren Henry, 1960 is at [facility] ED. Pt has been in ED at [facility] for pyelonephritis with possible neoplastic process. Hospitalist at [facility] unable to care for pt at [facility]. Pt cannot have contrast due to MANJIT (creat 3.1). [facility] reached out to [facility] yesterday but still don't have a bed. Dr Jaguar Mckeon spoke with Dr. Noel Contreras here at [facility] and pt accepted to [facility] by Dr Contreras. History Obtained From: Medical records and patient HISTORY OF PRESENT ILLNESS: Eren is a 63 y.o. 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 Report was not received by this admitter, and pts medical needs for transfer were largely presumed based off documented clinical course from outside ED. Pt was only sent with paper records without image disk, images not able to be obtained electronically on day of admission. Ultimately pt presented to [facility] for chief complaint of seizure-like activity. Reported she had 2 episodes of syncope, one occurring at home and one at her urologists office. At home, she reports that she was standing and talking on the phone with her dad, and the next thing she remembers is lying down on the ground. Does not recall preceding symptoms. The second episode, which occurred at her urologists outpatient practice, she reports that bystanders witnessed seizure-like activity at the office, stating she had full body shaking without control of her body; denies LOC, tongue biting, urinary incontinence during this episode. At outside ED pt was tachycardic to 120s, EKG with sinus tachy. CBC with leukocytosis to 19.5, thrombocytosis to 455. BMP with sodium 130, Cr 3.1 (recent Cr from 01/2024 1.75). CXR was without pneumonia, effusion, cardiomegaly, or PTX; did demonstrate L basilar atelectasis. D-dimer elevated at 3.44, CTA chest ordered and was negative for PE, however it demonstrated nodules within R lobe of thyroid gland necessitating OP ultrasound. Also demonstrated circumferential wall thickening of mid and distal esophagus concerning for esophagitis, but unable to exclude neoplastic process. UA concerning for infection, pt started on rocephin and culture sent out. CT AP without contrast ordered to r/o infected urolithiasis - this demonstrated BL hydroureteronephrosis associated with filling defect within R proximal ureter with concern for possible neoplastic process, BL ureteral wall thickening suggestive of urethritis, and bladder wall thickening with adjacent stranding c/w cystitis. Given concern for malignancy, urology at [facility] recommended transfer and medical admission for further workup. Prior to her transfer, ED started pt on fludrocortisone 0.1mg PO BID. Upon assessment at [facility], pt reiterated much of what was documented above. Specifically, she denies any sort of preceding symptoms with her syncopal episodes. With her most recent episode at the outpatient urologists clinic, she says she walked in to the waiting room (denied standing from seated position) and up to the receptionists window to check in; all of a sudden she felt both her arms shaking, followe dby feeling of generalized weakness, and the next thing she knew she was on the ground. Denied chest pain, SOB, palpitations, lightheadedness, vision changes, LOC. She does report she was late to her appointment, therefore it is possible that this episode was precipitated by stress. Pt denies current weakness, numbness, tingling, f/c, chest pain, palpitations, SOB, abd pain, n/v, dysuria, d/c. Past Medical History: Past Medical History: Diagnosis Date Arthritis Cancer (CMS/HCC) (HCC) Disease of thyroid gland Past Surgical History: Past Surgical History: Procedure Laterality Date BACK SURGERY CHOLECYSTECTOMY COLON SURGERY THYMECTOMY stated per patient, for cancer removal Social History: Social History Socioeconomic History Marital status: Spouse name: Not on file Number of children: Not on file Years of education: Not on file Highest education level: Not on file Occupational History Not on file Tobacco Use Smoking status: Not on file Smokeless tobacco: Not on file Substance and Sexual Activity Alcohol use: Not on file Drug use: Not on file Sexual activity: Not on file Other Topics Concern Not on file Social History Narrative Not on file Social Determinants of H (more content not included)...[facility] 03-04-2024 History and physical note* Maurilio Groves MD - 03/04/2024 2:37 PM EDT Attending History and Physical Admit Date: 03/04/2024 PCP: Priyanka Smith CHIEF COMPLAINT: OSH transfer Reason for Admission: Eren Henry, 1960 is at [facility] ED. Pt has been in ED at [facility] for pyelonephritis with possible neoplastic process. Hospitalist at [facility] unable to care for pt at [facility]. Pt cannot have contrast due to MANJIT (creat 3.1). [facility] reached out to [facility] yesterday but still don't have a bed. Dr Jaguar Mckeon spoke with Dr. Noel Contreras here at [facility] and pt accepted to [facility] by Dr Contreras. History Obtained From: Medical records and patient HISTORY OF PRESENT ILLNESS: Eren is a 63 y.o. 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 Report was not received by this admitter, and pts medical needs for transfer were largely presumed based off documented clinical course from outside ED. Pt was only sent with paper records without image disk, images not able to be obtained electronically on day of admission. Ultimately pt presented to [facility] for chief complaint of seizure-like activity. Reported she had 2 episodes of syncope, one occurring at home and one at her urologists office. At home, she reports that she was standing and talking on the phone with her dad, and the next thing she remembers is lying down on the ground. Does not recall preceding symptoms. The second episode, which occurred at her urologists outpatient practice, she reports that bystanders witnessed seizure-like activity at the office, stating she had full body shaking without control of her body; denies LOC, tongue biting, urinary incontinence during this episode. At outside ED pt was tachycardic to 120s, EKG with sinus tachy. CBC with leukocytosis to 19.5, thrombocytosis to 455. BMP with sodium 130, Cr 3.1 (recent Cr from 01/2024 1.75). CXR was without pneumonia, effusion, cardiomegaly, or PTX; did demonstrate L basilar atelectasis. D-dimer elevated at 3.44,CTA chest ordered and was negative for PE, however it demonstrated nodules within R lobe of thyroidgland necessitating OP ultrasound. Also demonstrated circumferential wall thickening of mid and distal esophagus concerning for esophagitis, but unable to exclude neoplastic process. UA concerning for infection, pt started on rocephin and culture sent out. CT AP without contrast ordered to r/o infected urolithiasis - this demonstrated BL hydroureteronephrosis associated with filling defect withinR proximal ureter with concern for possible neoplastic process, BL ureteral wall thickening suggestive of urethritis, and bladder wall thickening with adjacent stranding c/w cystitis. Given concern for malignancy, urology at [facility] recommended transfer and medical admission for further workup. Prior to her transfer, ED started pt on fludrocortisone 0.1mg PO BID. Upon assessment at [facility], pt reiterated much of what was documented above. Specifically, she denies any sort of preceding symptoms with her syncopal episodes. With her most recent episode at the outpatient urologists clinic, she says she walked in to the waiting room (denied standing from seated position) and up to the receptionists window to check in; all of a sudden she felt both her arms shaking, followe dby feeling of generalized weakness, and the next thing she knew she was on the ground. Denied chest pain, SOB, palpitations, lightheadedness, vision changes, LOC. She does report she was late to her appointment, therefore it is possible that this episode was precipitated by stress. Pt denies current weakness, numbness, tingling, f/c, chest pain, palpitations, SOB, abd pain, n/v, dysuria, d/c. Past Medical History: Past Medical History: Diagnosis Date Arthritis Cancer (CMS/HCC) (HCC) Disease of thyroid gland Past Surgical History: Past Surgical History: Procedure Laterality Date BACK SURGERY CHOLECYSTECTOMY COLON SURGERY THYMECTOMY stated per patient, for cancer removal Social History: Social History Socioeconomic History Marital status: Spouse name: Not on file Number of children: Not on file Years of education: Not on file Highest education level: Not on file Occupational History Not on file Tobacco Use Smoking status: Not on file Smokeless tobacco: Not on file Substance and Sexual Activity Alcohol use: Not on file Drug use: Not on file Sexual activity: Not on file Other Topics Concern Not on file Social History Narrative Not on file Social Determinants of Health Financial Resource Strain: High Risk (03/26/2020) Received from [facility] Overall Financial Resource Strain (CARDIA) Difficulty of Paying Living Expenses: Very hard Food Insecurity: No Food Insecurity (03/26/2020) Received from [facility] Hunger Vital Sign Worried About Running Out of Food in the Last Year: Never true Ran Out of Food in the Last Year: Never true Transportation Needs: No Transportation Needs (03/26/2020) Received from [facility] PRAPARE - Transportation Lack of Transportation (Medical): No Lack of Transportation (Non-Medical): No Physical Activity: Inactive (06/22/2023) Received from [facility] Exercise Vital Sign Days of Exercise per Week: 0 days Minutes of Exercise per Session: 0 min Stress: No Stress Concern Present (09/03/2019) Received from [facility] [employer] [place] [employer] - Occupational Stress Questionnaire Feeling of Stress : Not at all Social Connections: Unknown (03/01/2020) Received from [facility] Social Connection and Isolation Panel [NHANES] Frequency of Communication with Friends and Family: Three times a week Frequency of Social Gatherings with Friends and Family: Three times a week Attends Sikh Services: Not on file Active Member of Clubs or Organizations: Not on file Attends Club or Organization Meetings: Not on file Marital Status: Not on file Intimate Partner Violence: Not on file Housing Stability: Not on file Family History: No family history on file. Medications Prior to Admission: No current facility-administered medications on file prior to encounter. No current outpatient medications on file prior to encounter. Allergies: Allergies Allergen Reactions Azithromycin Diarrhea Severe diarrhea Seasonal Other Stuffy/runny nose REVIEW OF SYSTEMS: Negative apart from above Vitals: BP 139/92 (BP Location: Left arm, Patient Position: Sitting) Pulse 105 Temp 36.3 C (97.4 F) (Tympanic) Resp 16 Ht 5' 5 (1.651 m) Wt 178 lb (80.7 kg) SpO2 93% BMI 29.62 kg/m BMI Classification: Overweight (BMI 25.0-29.9) Pulse Ox: SpO2 Av % Min: 93 % Max: 93 % Supplemental O2: PHYSICAL EXAM: Physical Exam Vitals reviewed. Constitutional: General: She is not in acute distress. Appearance: Normal appearance. She is not ill-appearing or diaphoretic. HENT: Mouth/Throat: Mouth: Mucous membranes are moist. Eyes: Extraocular Movements: Extraocular movements intact. Cardiovascular: Rate and Rhythm: Regular rhythm. Tachycardia present. Pulses: Normal pulses. Heart sounds: Normal heart sounds. Pulmonary: Effort: No respiratory distress. Breath sounds: Normal breath sounds. No stridor. No wheezing or rhonchi. Abdominal: General: Abdomen is flat. Palpations: Abdomen is soft. Musculoskeletal: Right lower leg: No edema. Left lower leg: No edema. Skin: General: Skin is warm and dry. Comments: Vitiligo Neurological: Mental Status: She is alert and oriented to person, place, and time. Comments: Mildly tremulous Psychiatric: Mood and Affect: Mood normal. Behavior: Behavior normal. DATA: CBC: No results for input(s): WBC, RBC, HGB, HCT, MCV, RDW, PLT in the last 72 hours. BMP:No results for input(s): NA, K, CL, CO2, BUN, CREATININE, GLUCOSE, CALCIUM, ANIONGAP in the last 72 hours. LIVER PROFILE:No results for input(s): AST, ALT, BILITOT, ALKPHOS, PROT in the last 72 hours. No lab exists for component: LABALBU PT/INR: No results for input(s): PROTIME, INR in the last 72 hours. CARDIAC ENZYMES: No results for input(s): TROPONINI in the last 72 hours. Procalcitonin: No results found for: PROCAL Urine Culture: No results found for this or any previous visit. COVID-19 PCR: No results for input(s): COVID19 in the last 72 hours. I reviewed: [x] laboratory results [x] radiographic results At the time of today's encounter. Pt was advised of the results. Data: (CAT1) Reviewed 3 or more notes from different specialty or health system (each=1). (CAT1) Ordered 3 or more new labs and/or studies (each=1, panels count as 1). (LOW: 2x CAT1 or independent historian MOD: 3x CAT1 or 1x CAT3 EXTENSIVE: 3x CAT1 and 1x CAT3) Assessment Discussed management with the ED provider and agree with hospitalization. Acute, acute on chronic, unstable/uncontrolled chronic problems/diagnoses: #Complicated UTI with BL hydroureteronephrosis with c/f pyelonephritis #Filling defect within R proximal ureter #MANJIT on CKD3a -CT AP w/o contrast showed low-attenuation 8x3 mm intraluminal filling defect within proximal R ureter. -BL hydroureteronephrosis associated with filling defect within R proximal ureter with concern for possible neoplastic process, BL ureteral wall thickening suggestive of urethritis, and bladder wall thickening with adjacent stranding c/w cystitis. Plan: -Urology at outside ED may have been reluctant to perform PCNT placement in presence of MANJIT, however not clear per transfer notes. -On admission, pt was discussed with [facility] urology whom recommended repeat imaging if unable to obtain image disks. -Ordered renal ultrasound for now, will consult urology to weigh in on intervention and further workup for ureteral filling defect. #Lightheadedness #Recurrent falls #?seizure episode -Recent OP office visit: Had a fall on Wednesday morning, just fell. No dizziness at that time. Bp lowin office today. Taking Propranolol 20 mg BID for tremor. Episodes are random, usually will be standing when she gets dizzy. No chest pain, palitations, or edema. Hit right ribs on Wednesday, hit a rocking chair, no LOC. PCP thought it was related to hypotension 2/2 propranolol. -Urology office visit 03/03 documents she had witnessed fall vs seizure in office waiting room, recommended ED evaluation. -03/03: CTH, C-spine without acute process. ED started pt on fludrocortisone 0.1mg PO BID. Plan: -Orthostats -Monitor tele -Neuro consult -Echo ordered -Consider AI workup in setting of other autoimmune diseases #Dysphagia #Esophageal dysmotility #Circumferential wall thickening of mid and distal esophagus on CT - concerning for esophagitis, but unable to exclude neoplastic process -was on reglan, stopped recently by neuro 12/2023 due to tardive dyskinesia. Plan: -GI consulted Stable chronic problems affecting care, new non-acute diagnoses: #Hyponatremia -Pt started on NaCl 1g TID by ED 03/04 #Chronic interstitial cystitis -Follows with OP urology. On 03/03 documented the following: recommend titrating down and off of amitryptiline while she is undergoing neuro/falls/seizure workup. Elavil is helpful kimber at night, but given large increase in falls recently safest to be off of it. Can discuss once acute issue resolvesif safe to restart. Taper discussed as 50mg 4-5d, then 25mg 4- 5 days then stop. #ILD/NSIP -On current regimen of cellcept, prednisone 5mg daily. Plan: -Cont home prednisone. Held cellcept given infection concern. #Prediabetes -A1c 5.9 01/31/24, trend BMP #Hypothyroidism -TSH 1.490 12/16/23 #Tremors #Hx tardive dyskinesia, medication induced #Hx Drug-induced parkinsonism -Neuro 12/2023: -Involuntary mouth and tongue movements consistent with tardive dyskinesia, likely secondary to long-term use of metoclopramide since 2018. No history of antipsychotic use. Movements are noticeable but not currently causing significant functional impairment. -Exhibits bradykinesia, rigidity, and tremor, which may be indicative of drug- induced parkinsonism due to metoclopramide use. Differential diagnosis includes primary Parkinson's disease, but symptomsare symmetric, affecting both sides equally, which is more consistent with drug-induced etiology Plan As a result of the above findings & factors, the following mgmt was pursued: - as above - am labs, replace lytes prn - PT/OT/CM/SW - delirium precautions: increase activity and limit nighttime disturbances - DVT prophylaxis: heparin and encourage ambulation Complexity: Undiagnosed new problem with uncertain prognosis (MOD). Acute illness with systemic symptoms (MOD). Risk: Admission to hospital-level care was considered or occurred (HIGH). Prescription drug/IVF/colloid was initiated, discontinued, adjusted; or reviewed with decision to maintain current orders (MOD). Advance Directive: Full Code Anticipated Discharge - Date - TBD - Location - Likely home - Pending the following - clinical course Total time spent (which include face to face and non face to face encounters) : 120 minutes. Extended Emergency Contact Information Primary Emergency Contact: Shelton Merchant Mobile Relation: Son Preferred language: Bahamian Printed Circuit Photographer needed? No Secondary Emergency Contact: Michael Merchant Mobile Relation: Significant Other Preferred language: Bahamian Printed Circuit Photographer needed? No [employer] Eren Merchant : 1960 Primary Care Physician: Priyanka Smith The patient and/or family/surrogate voluntarily agreed to participate in ACP services. Patient s cognitive capacity: AOX4 Code Status: [X] [FULL CODE - Continue all advanced life support: CPR,intubation,invasive procedures] [_] [DNR-CCA - DO NOT do CPR, intubation] [_] [DNR-SCRIPT EDITOR - Comfort care only] [_] DNR form [was/was not] signed Maurilio Groves MD Division of Hospitalist Medicine [facility] documented in this [facility]10-18-2024 Note* Addendum Note - Bogdan Roberts MD - 03/03/2024 5:03 PM EDTAddended by: BOGDAN ROBERTS on: 03/03/2024 05:03 PM Modules accepted: Orders [facility]10-18-2024 Miscellaneous Notes* Addendum Note - Bogdan Roberts MD - 03/03/2024 5:03 PM EDTAddended by: BOGDAN ROBERTS on: 03/03/2024 05:03 PM Modules accepted: Orders documented in this encounterAdena [facility]10-18-2024 History of Present illness Narrative* Carmen Randolph RT(R) - 03/03/2024 12:30 PM EDT Radiology Service Progress Note PATIENT NAME: Eren Merchant DATE OF SERVICE: March 03, 2024 TIME: 12:38 PM PATIENT IDENTITY VERIFICATION COMPLETED USING TWO (2) IDENTIFIERS: Name and Date of confirmedby patient verbally. FALL SCREENING: Has the patient had 2 falls in the last year or 1 fall with injury or currently using an Ambulatory Assistive Device (Walker, Cane, Wheelchair, Crutches, etc.)? No PATIENT GENDER DATA: Female. status: : No status: NO. PATIENT RELEVANT IMPLANT DATA REVIEWED: Yes PATIENT PRESENTS WITH AN IMPLANTABLE OR ATTACHED CAR SALES CONSULTANT: No RADIOLOGY DEPARTMENT: General X-ray: Exam(s) Completed: Chest X-Ray PERIPHERAL IV DATA: Not applicable SIGNED BY: RT Mathieu(Denisse) March 03, 2024 12:38 PM documented in this encounterAdena [facility] Center10-18-2024 [facility]10-18-[facility]24 Instructions* Patient Instructions* Wiley Benitez MD - 03/03/2024 11:11 AM EDT Discontinue the elavil (amitriptyline) for now - we will taper it down. Take 50mg for 4-5 days, then take 25mg for 4-5 days, then stop. documented in this encounterAdena Regional Medical Center10-18-2024 History of Present illness Narrative* Wiley Benitez MD - 03/03/2024 10:00 AM EDT Female Pelvic Medicine & Reconstructive Surgery Follow-Up Eren Merchant is a 63 year old female, who presents for a follow-up of chronic interstitial cystitis. History since last visit: She has been taking amitriptyline 50 mg and last reported this was helping with her symptoms (01/31/2024). Today she reports: Up to amitriptyline 75mg - helping at night, not so much during the day. Has interstim - works a little but overall not so helpful. She has had numerous falling episodes in the past 2 weeks, one of which was witnessed in the officetoday by numerous staff, though not myself. Questionable tremors vs seizure? Unclear Urinary Incontinence: yes, HS not able to make it to the bathroom Voiding Dysfunction: no Urinary Frequency: yes 2x per hour Urinary Urgency: no Prolapse Symptoms: no Defecatory Dysfunction: yes, constipation Fecal Incontinence: no Abnormal Bleeding: no Pain: no Abnormal Vaginal Discharge: no I have confirmed and edited as necessary, the PFSH obtained by others. Wiley Benitez MD Drag Seiner offered: Patient accepts, visit chaperoned by Samreen Alejo RN . SENSITIVE EXAM: Sensitive exam not performed. OBJECTIVE: LMP 01/07/2011 General: Well appearing, alert, in no acute distress, well-hydrated, well nourished with tremor Abdomen: Normal abdominal exam Pelvic: deferred Impression: Eren Merchant is a 63 year old female with . Plan: Assessment & Plan Chronic interstitial cystitis - Pt is s/p mirabegron, oxybutynin, interstim, botox 100 units, now botox 200 units with no improvement in OAB symptoms (had some improvement w/ interstim but didn't last long) - Voids q20 minutes, waking q1h at night; feels if she doesn't empty her bladder she is in severe discomfort - Last cystoscopy revealed Bladder mucosa was erythematous with petechiae and glomerulations at thebladder base and trigone upon entry of the cystoscope. - concerning for IC - Possible that she has been treated for OAB while she actually has picture more c/w IC - Recommend IC pathway- recommend elavil 10mg and uptitrating to 50-75mg on 01/10 - Also discussed other oral medications, PFPT, cystoscopy with fulguration v steroids, bladder installations as treatment options - Recommend pyridium PRN for 2-3 days when in -03/03: recommend titrating down and off of amitryptiline while she is undergoing neuro/falls/seizure workup. Elavil is helpful kimber at night, but given large increase in falls recently safest to be off of it. Can discuss once acute issue resolves if safe to restart. Taper discussed as 50mg 4-5d, then 25mg 4- 5 days then stop. Dizziness Recommend she present to ER for evaluation today given witnessed fall vs seizure in the office waiting room. I told her I have serious concerns about her safety and she should have an evaluation thatshouldn't wait until Wednesday. She has family with her today and agreed with my recommendation and said she would go to [place] [facility]. Follow up 6-8 weeks for phone visit; unable to access zoom for video visit Wiley Benitez MD documented in this encounterAdena [facility] Center10-18-2024 NoteWhite [facility]10-16-2024 Instructions* Patient Instructions* Jacqueline Valadez APRN.CNP - 03/01/2024 8:59 AM EDT Recommend [...] pressure check if needed. documented in this encounterAdena Regional Medical Center10-16-2024 History of Present illness Narrative* Jacqueline Valadez APRN.EMPLOYMENT SERVICES DIRECTOR - 03/01/2024 8:40 AM EDT This is a 63 year old female who presents today with: Patient presents with: Acute Visit: Fall and wants to discuss meds HISTORY OF PRESENT ILLNESS: Eren Merchant is a 63 year old female. Patient presents with: Acute Visit: Fall and wants to discuss meds Here in the office to discuss medications. Had a fall on Wednesday morning, just fell. No dizziness atthat time. Bp low in office today. Taking Propranolol 20 mg BID for tremor. Episodes are random, usually will be standing when she gets dizzy. No chest pain, palitations, or edema. Hit right ribs on Wednesday, hit a rocking chair, no LOC. Following with Neurology for tremor Copied from Neurology note. Drug-induced parkinsonism (HCC) Exhibits bradykinesia, rigidity, and tremor, which may be indicative of drug- induced parkinsonism due to metoclopramide use. 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 Lemon PAST SURGICAL HISTORY OF 10/24/2009 Removed T9-L1, 2 rods and 8 screws, Dr Lemon PAST SURGICAL HISTORY OF 11/2018 Hysteroscopy with D&C and Polypectomy with Burroughs and NephCover[employer] Truclear device PICC LINE INSERT/CONSULT 07/11/2018 THYMECTOMY [...] were discussed and patient voices understanding. Jacqueline Valadez APRN.EMPLOYMENT SERVICES DIRECTOR This note was partially generated using OpenEd voice recognition system. Note was reviewed for accuracy. There may be minor misspellings or grammar miscues with OpenEd voice recognition. documented in this encounterAdena [facility] Medical Center10-16-2024 NoteWhite [facility]09-18-2024 Telephone encounter Note* Telephone Encounter - Mariam Woods LPN - 02/02/2024 6:50 PM EDT Patient notified of results, verbalizes understanding of instructions. Mariam Woods LPN [facility]09-18-2024 Miscellaneous Notes* Telephone Encounter - Mariam Woods LPN - 02/02/2024 6:50 PM EDT Patient notified of results, verbalizes understanding of instructions. Mariam Woods LPN * Telephone Encounter - Jacqueline Valadez APRN.CNP - 02/02/2024 6:41 PM EDT Can you please call the patient and let her know that I reviewed her lab results. Kidney function has mildly decreased. I would recommend that she keep appointments with nephrology.Continue to watch salt and processed foods in the diet. Stay well-hydrated. If interested I do havea contact for a kidney dietitian. She can [...] next appointment in June. Thank you. Jacqueline Valadez APRN.SAMIR documented in this encounterAdena Regional Medical Center09-18-2024 Telephone encounter Note * Telephone Encounter - Jacqueline Valadez APRN.CNP - 02/02/2024 6:41 PM EDT Can you please call the patient and let her know that I reviewed her lab results. Kidney function has mildly decreased. I would recommend that she keep appointments with nephrology.Continue to watch salt and processed foods in the diet. Stay well-hydrated. If interested I do havea contact for a kidney dietitian. She can [...] next appointment in June. Thank you. Jacqueline Valadez APRN.SAMIR [facility]09-16-2024 Telephone encounter Note* Telephone Encounter - German Grubbs APRN.CNP - 01/31/2024 3:27 PM EDT Chart reviewed. New rx sent. German Grubbs APRN.CNP [facility]09-16-2024 Miscellaneous Notes* Telephone Encounter - Gemran Grubbs APRN.CNP - 01/31/2024 3:27 PM EDT Chart reviewed. New rx sent. German rGubbs APRN.CNP * Telephone Encounter - Noa Schmidt - 01/31/2024 2:48 PM EDT [facility]AN 01/11/24: Impression: Eren Merchant is a 63 year old female with [...] of elavil F/u 4weeks Wiley Benitez MD Message routed to Urogyn THERMOSTATIC CONTROLS SUPERVISOR requesting new script for Amitriptyline. documented in this encounterAdena Regional Medical Center09-16-2024 Telephone encounter Note * Telephone Encounter - Noa Schmidt - 01/31/2024 2:[address] [facility] 01/11/24: Impression: Eren Merchant is a 63 year old female with [...] of elavil F/u 4weeks Wiley Benitez MD Message routed to Elliott RIVERA requesting new script for Amitriptyline. [facility]08-29-2024 Instructions* Patient Instructions* Bogdan Roberts MD - 01/13/2024 2:35 PM EDT [...] or you can send a message through [employer]. You can also now schedule and select appointments through [employer]. Bogdan Roberts MD documented in this encounterAdena Regional Medical Center08-29-2024 NoteWhite [facility]08-29-2024 History of Present illness Narrative* Bogdan Roberts MD - 01/13/2024 2:07 PM EDT [facility] - NEW PATIENT EVALUATION Referring Provider: Jacqueline Valadez [address] [facility] [address] Primary Care Provider: Priyanka Smith MD [address] [facility] [id number] Dear Jacqueline Valadez: Thank you for referring Ms. Merchant to our clinic today. As you know [...] asked if she was okay. She reports thatthe tremors occur in both hands and can happen both at rest and during activities. She also experiences involuntary lxmm-wiy-jullc movements of her mouth and tongue, which she believes began around the same time as the hand tremors. She does not think these movements are due to a nervous habit. Shewas recently prescribed propranolol by her family doctor, which has helped reduce the mouth movements but has not completely alleviated the hand tremors. She does not report any problems with walkingor any family history of tremors. She is not aware of talking in her sleep or acting out her dreamsat night, as she sleeps alone. Patient is currently taking amitriptyline, which was prescribed for bladder issues, and metoclopramide (Reglan), which was prescribed in 2018 for the sensation of food being stuck [...] test, Abnormal Papanicolaou smear of vagina and vaginalHPV, Diverticulitis of sigmoid colon (12/07/2009), Esophageal dysmotility [...] Hypertension in her father and mother; Stroke inher maternal grandmother; Thyroid in her mother. Objective Vital Signs: BP 101/66 (BP Site: Left Arm, BP Position: Sitting, BP Cuff Size: Regular Adult) Pulse 62 Ht 165.1 cm (5' 5) Wt 87.6 kg (193 lb 2 oz) LMP 01/07/2011 SpO2 98% BMI 32.14 kg/m Orthostatic Vitals: None for this encounter Weight: 87.6 kg (193 lb 2 oz) Height: 165.1 cm (5' 5) Patient's last menstrual period was 01/07/2011. Body [...] Recent and remote memory are intact. Speech isnormal. Cranial Nerves CN II-XII grossly intact, except [...] during tapping, b) mild slowing, c) the amplitudedecrements midway in the 10-tap sequence. Finger Taps [...] SCORE 7 Assessment and Plan: Assessment Ms. Merchant is a right-handed 63 year old year [...] secondary to long-term use of metoclopramide since 2018. No history of antipsychotic use. Movements are noticeable but not currently causing significant functional impairment. - Educated patient on the potential for increased dyskinetic movements following metoclopramide discontinuation. - Consider initiation of VMAT2 inhibitors such as valbenazine or deutetrabenazine if dyskinesia worsens post-discontinuation. # Drug-induced parkinsonism (HCC) Exhibits bradykinesia, rigidity, and tremor, which may be indicative of drug- induced parkinsonism due to metoclopramide use. Differential diagnosis [...] hesitate to call with any questions. 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 She has no history of an abnormal mammogram LMP: Patient's last menstrual period was 01/07/2011.; Menopause post : Menstrual history: NA; Deliveries: n/a I have confirmed and edited as necessary, the PFSH obtained by others. Wiley Benitez MD Drag Seiner offered: Patient declines. OBJECTIVE: LMP 01/07/2011 General: Well appearing, alert, in no acute distress, well-hydrated, well nourished. Abdomen: Abdomen soft, non-tender Pelvic:deferred UA results: N/A Bladder scan: N/A Impression: Eren Merchant is a 63 year old female with [...] which included preparing to see the patient, bhmc-tl-romo patient care, completing clinical documentation, obtaining and/or reviewing separately obtained history, performing a medically appropriate examination, counseling and educating the pat ient/family/caregiver, and ordering medications, tests, or procedures. documented in this encounterAdena Regional Medical Center08-13-2024 Instructions* Patient Instructions* Jacqueline Valadez APRN.CNP - 12/28/2023 7:25 AM EDT Get fasting labs completed in 1 month, no food 10-12 hours prior, may have black coffee and water Continue to take all medication as prescribed. Keep scheduled appointments with specialists Watch salt and processed foods in the diet. Stay well hydrated Follow up in 6 months or sooner pending repeat labs. documented in this encounterAdena Regional Medical Center08-13-2024 History of Present illness Narrative* Jacqueline Valadez APRN.CNP - 12/28/2023 7:20 AM EDT This is a 63 year old female who presents today with: Patient presents with: 6 Month Exam HISTORY OF PRESENT ILLNESS: Eren Merchant is a 63 year old female. Patient [...] routine labs. Elevated BUN and Creatinine on previouslabs, continue monitoring. Glucose -elevated glucose in the past. He has been watching diet at home. Refers that she prepares most of her meals herself. Staying well-hydrated. Pulmonary - Follows with Dr. Alcantara. Hx of ILD/NSIP. On current regimen of Cellcept 500 mg bid, Reglan 5 mg and Prednisone 5 mg once daily. Does CT scan of lungs yearly for monitoring. CKD: Recent GFR 34. Watching diet for salt and trying to stay well-hydrated. Following with Nephrology, history of kidney stones. Pap: Follows with BAG FILLER MACHINE OPERATOR, refers difficulty collecting pap recently. 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 Latest Ref [facility] 12/16/2023 WBC 3.70 - 11.00 k/uL 11.52 [...] were discussed and patient voices understanding. Jacqueline Valadez APRN.EMPLOYMENT SERVICES DIRECTOR This note was partially generated using OpenEd voice recognition system. Note was reviewed for accuracy. There may be minor misspellings or grammar miscues with OpenEd voice recognition. documented in this encounterAdena Regional Medical Center08-07-2024 History of Present illness Narrative* Mathew Yang Jr., MD - 12/22/2023 10:15 AM EDT ESTABLISHED PATIENT OFFICE VISIT HPI Eren Merchant is a 63 year old female who presents refer for frequency/urgency. On no current meds. Has to void q 2 hours day and night. Ho colon resection. Has severe constipation. Has bm 1x/week.Seeing her general surgeon soon. Supposed to be [...] Date Value 05/22/2022 Negative 03/22/2020 Negative Specific [place], Ur (no units) Date Value 05/22/2022 1.010 [...] Comment: Added automatically from request for surgery [id number] 09/05/2014: Rectal bleed No date: Thymoma Comment: [...] appearing, alert, in no acute distress, and well- hydrated, well nourished Skin: Skin color, texture, turgor normal, no suspicious rashes or lesions Respiratory:+ effort Cardiovascular: Not examined GI: Normal abdominal exam, Abdomen soft, non-tender. No masses, organomegaly Musculoskeletal: Negative Neuro: Negative Genitourinary: not examined Impression: (N20.0) Kidney stone (primary encounter diagnosis) Plan: 1 year Kub prior Stone prevention Mathew Yang Jr, MD 12/22/2023 documented in this encounterA[facility]07-17-2024 Instructions* Patient Instructions* Lacy Ruiz - 12/01/2023 2:56 PM EDT Images from [...] answering service to speak with the doctor electrification adviser. Dr. Cueto Dr. Benitez Dr. Constantino Dr. Cerda Dr. Brumfield Dr. Mcqueen Dr. Foy Dr. Mg Teri Roberts, SAMIR Brooks, SAMIR Grubbs, SAMIR Roberts, SAMIR Ruiz, EMPLOYMENT SERVICES DIRECTOR Lucina Estrada, EMPLOYMENT SERVICES DIRECTOR Please DO NOT use MyChart for procedure concerns. documented in this encounterAdena [facility] Center07-17-2024 Nurse Note* Lacy Ruiz - 12/01/2023 2:54 PM EDT Instruction sheet given and reviewed: Yes Patient verbalizes understanding: Yes Post- procedure Vital Signs: B/P: 152/92 P: R:18 Pain Ratin on a scale of 0 to 10. Specimens: not indicated. Nurse: Lacy Ruiz [facility]07-17-2024 Nurse Note* Lacy Ruiz - 12/01/2023 2:54 PM EDT Instruction sheet given and reviewed: Yes Patient verbalizes understanding: Yes Post- procedure Vital Signs: B/P: 152/92 P: R:18 Pain Ratin on a scale of 0 to 10. Specimens: not indicated. Nurse: Lacy Ruiz documented in this encounterAdena [facility] Medical Center07-17-2024 History of Present illness Narrative* Wiley Benitez MD - 12/01/2023 1:30 PM EDT Eren Huitron Shonda presents today for a intradetrusor Botox injections. [...] Video-assisted cystourethroscopy was performed using a 19 Jordanian 30 degree cystoscope with saline infusion. The [...] mL aliquots into the detrusor in a grid- like pattern. In all 8 injections were given. [...] OR. Wiley Benitez MD documented in this encounterAdena [facility] Center07-15-2024 Note* Addendum Note - Claudia Floyd MA - 11/29/2023 11:01 AM EDTAddended by: CLAUDIA FLOYD on: 11/29/2023 11:01 AM Modules accepted: Orders [facility]07-15-[facility]24 Miscellaneous Notes* Addendum Note - Claudia Floyd MA - 11/29/2023 11:01 AM EDTAddended by: CLAUDIA FLOYD on: 11/29/2023 11:01 AM Modules accepted: Orders documented in this encounterAdena Regional Medical Center07-15-2024 History of Present illness Narrative* Lauryn Gonzalez RT(R) - 11/29/2023 9:00 AM EDT Radiology Service Progress Note PATIENT NAME: Eren Merchant DATE OF SERVICE: November 29, 2023 TIME: 7:50 AM PATIENT IDENTITY VERIFICATION COMPLETED USING TWO (2) IDENTIFIERS: Name and Date of confirmedby patient verbally. FALL SCREENING: Has the patient had 2 falls in the last year or 1 fall with injury or currently using an Ambulatory Assistive Device (Walker, Cane, Wheelchair, Crutches, etc.)? No PATIENT GENDER DATA: Female. status: : No status: NO. PATIENT RELEVANT IMPLANT DATA REVIEWED: Yes PATIENT PRESENTS WITH AN IMPLANTABLE OR ATTACHED CAR SALES CONSULTANT: No RADIOLOGY DEPARTMENT: General X-ray: Exam(s) Completed: Abdomen X-Ray: Abdomen PERIPHERAL IV DATA: Not applicable SIGNED BY: RT Eloy(R) November 29, 2023 7:50 AM documented in this encounterAdena Regional Medical Center07-15-2024 History of Present illness Narrative* Charis Lopez APRN.CNM - 11/29/2023 7:59 AM EDT Eren is a 63 year old who presents [...] Multiple0 Live Births0 Comment: 2 vaginal deliveries Crm Coordinator History LMP: 01/07/2011, Postmenopausal Age at Menarche: Age at First : Age at Menopause: Crm Coordinator History Comments: Sexual Activity: Yes; Male Contraception: [...] 08/05/2017 Added automatically from request for surgery [id number] Rectal bleed 09/05/2014 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, Masaoka [...] UNI/BI Tubal ligation LX PARTIAL [facility]OMY [facility] lap lysis of adhesions, left oopherectomy, right salpinoopherectomy, left salpingectomy, redo lap sigmoid colectomy w/ressection, lap mobilization of splenic flexure, lap appendectomy PAST SURGICAL HISTORY OF 10/2008 T9-L1 fusion, Dr. Lemon PAST SURGICAL HISTORY OF 10/24/2009 Removed T9-L1, 2 rods and 8 screws, Dr Lemon PAST SURGICAL HISTORY OF 11/2018 Hysteroscopy with D&C and Polypectomy with Burroughs and NephCoverMe Truclear device PICC LINE INSERT/CONSULT 07/11/2018 THYMECTOMY [...] for overactive bladder/frequency/urgency and incontinence. Seen by URO/BAG FILLER MACHINE OPERATOR- currently receiving botox in bladder/ taking oral [...] size, shape and consistency, no adnexal masses, non- tender, and no cervicalmotion tenderness RECTOVAGINAL: deferred. NEURO: alert and oriented x3,exam grossly non-focal EXTREMITIES: normal ASSESSMENT/PLAN: Unable to complete PAP/ Stenotic OS 1) Health maintenance: Mammogram ordered Colon cancer screening: patient to discuss with PCP TSH/lipids/glucose: followed by PCP 2) Follow up one year or sooner as needed Charis Lopez APRN.CNM documented in this encounterAdena Regional Medical Center07-08-2024 Telephone encounter Note * Telephone Encounter - Dee Long - 11/22/2023 10:28 AM EDT Called and left vox Patient is scheduled December 21, 2023 at 2pm, [place] location, kub prior Thank you eDe [facility]07-[facility] Miscellaneous Notes* Telephone Encounter - Dee Long - 11/22/2023 10:28 AM EDT Called and left vox Patient is scheduled December 21, 2023 at 2pm, [place] location, kub prior Thank you Dee * Telephone Encounter - Mathew Yang Jr., MD - 11/22/2023 8:45 AM EDT [facility] or 11/22/23 Fu with me 4 weeks Kub prior ordered documented in this encounterAdena [facility] Medical Center07-08-2024 Telephone encounter Note * Telephone Encounter - Mathew Yang Jr., MD - 11/22/2023 8:45 AM EDT [facility] or 11/22/23 Fu with me 4 weeks Kub prior ordered [facility]07-[facility]24 NoteHNO ID: [id number] Author: SPENSER GARDUNO APRN.KNIFE OPERATOR Service: ? Author Type: Nurse Governor Assembler Hydraulic Type: Anesthesia Procedure Notes Filed: 11/22/2023 08:18 Note Text: ANESTHESIOLOGY PROCEDURE NOTE PIV General Information Procedure Start Time/Medication Administration: 11/22/2023 7:55 AM Procedure End Time: 11/22/2023 7:55 AM Patient location: Pre surgery. Staffing KNIFE OPERATOR: Spenser Garduno APRN.KNIFE OPERATOR Performed by: CARLYN Preparation Sterility Preparation: hand hygiene performed prior to procedure, surgical cap used, skin prep agent completely dried prior to procedure Sterility Technique Not Completely Performed Due to Extreme Emergency: No Site Prep: Chloraprep Procedure Details Indication: need for IV access Needle Size/Type: 20 gauge angiocath Orientation: Right Location: Antecubital Imaging Guidance Used: No SIGNATURE: Spenser Garduno APRN.CRNA PATIENT NAME: Eren Huitron Shonda DATE: November 22, 2023 TIME: 8:17 AM CSN: [id number] [facility]07-[facility] NoteHNO ID: [id number] Author: SPENSER GARDUNO APRN.KNIFE OPERATOR Service: ? Author Type: Nurse Governor Assembler Hydraulic Type: Anesthesia Procedure Notes Filed: 11/22/2023 08:17 Note Text: ANESTHESIOLOGY PROCEDURE NOTE Airway General Information Procedure Start Time/Medication Administration: 11/22/2023 8:10 AM Procedure End Time: 11/22/2023 8:10 AM Patient location during procedure: OR Timeout Performed Pre-procedure: timeout performed Consent Obtained: Yes Patient identity confirmed: arm band and patient Staffing KNIFE OPERATOR: Spenser Garduno APRN.KNIFE OPERATOR Performed by: CARLYN Indications and Patient Condition Indications for airway management: anesthesia Preoxygenated: yes anesthesia circuit Patient position: sniffing Method: asleep Cricoid Pressure: No Manual In-Line Stabilization: No Difficult Mask: No Final Airway Details Final airway type: supraglottic airway Number of attempts at approach: 1 Final Supraglottic Airway: i-gel Size 4 Seal Adequate: yes SIGNATURE: Spenser Garduno APRN.CRNA PATIENT NAME: Eren Huitron Shonda DATE: November 22, 2023 TIME: 8:17 AM CSN: [id number] [facility]06-28-2024 Telephone encounter Note* Telephone Encounter - Lacy Ruiz - 11/12/2023 2:34 PM EDT Emely MARTINEZ from [facility] re: Approved Botox 200units Botox approved every 90 days during 11/04/23-11/02/24 Approval number [id number] Will route to care coordinators. See encounter 10/20/23 [facility] Miscellaneous Notes* Telephone Encounter - Lacy Ruiz - 11/12/2023 2:34 PM EDT Emely MARTINEZ from [facility] re: Approved Botox 200units Botox approved every 90 days during 11/04/23-11/02/24 Approval number [id number] Will route to care coordinators. See encounter 10/20/23 documented in this encounterAdena Regional Medical Center06-26-2024 Telephone encounter Note * Telephone Encounter - Lori (Pharmacy Leidy)Ciaran - 11/10/2023 9:30 AM EDT === PHARMACY TEAM ==== PEER TO PEER/APPEAL REQUESTED PROVIDER TO COMPLETE P2P or Appeal: APPEAL Payer: MMO DOS: TBD Drug Name(s) & HCPCS/CPTCode(s): J0585 BOTOX Dx code(s) submitted: N32.81 (ICD-10-CM) - OAB (overactive bladder) Provider: WILEY BENITEZ Peer to Peer/Appeal reason: 100 UNITS MAX DOSE Timeframe to complete: 60 DAYS Date sent to provider: 11/10/2023 Courtesy page sent (PRN): No APPEAL: [id number] FAX: [phone] PHONE: [phone] [facility] Miscellaneous Notes* Telephone Encounter - Lori MannPharmacy Ciaran Taylor - 11/10/2023 9:30 AM EDT === PHARMACY TEAM ==== PEER TO PEER/APPEAL REQUESTED PROVIDER TO COMPLETE P2P or Appeal: APPEAL Payer: MMO DOS: TBD Drug Name(s) & HCPCS/CPTCode(s): J0585 BOTOX Dx code(s) submitted: N32.81 (ICD-10-CM) - OAB (overactive bladder) Provider: WILEY BENITEZ Peer to Peer/Appeal reason: 100 UNITS MAX DOSE Timeframe to complete: 60 DAYS Date sent to provider: 11/10/2023 Courtesy page sent (PRN): No APPEAL: [id number] FAX: [phone] PHONE: [phone] documented in this encounterAdena Regional Medical Center06-25-2024 History of Present illness Narrative* Mathew Yang Jr., MD - 11/09/2023 9:53 AM EDT ESTABLISHED PATIENT OFFICE VISIT HPI Eren Merchant is a 63 year old female who presents refer for frequency/urgency. On no current meds. Has to void q 2 hours day and night. Ho colon resection. Has severe constipation. Has bm 1x/week.Seeing her general surgeon soon. Supposed to be [...] Date Value 05/22/2022 Negative 03/22/2020 Negative Specific [place], Ur (no units) Date Value 05/22/2022 1.010 [...] leiomyoma of uterus Malnutrition of moderate degree ([facility]) 06/15/2018 Obesity, Class I, BMI 30-34.9 E66.9 09/03/2017 Osteopenia Overactive bladder Primary osteoarthritis of first carpometacarpal joint of right hand 08/05/2017 Added automatically from request for surgery [id number] Rectal bleed 09/05/2014 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, Masaoka [...] appearing, alert, in no acute distress, and well- hydrated, well nourished Skin: Skin color, texture, turgor [...] surgery failure, , heart attack, stroke, deep veinthrombosis, pulmonary embolus. Patient verbalized understanding and agrees to proceed. Mathew Yang Jr, MD 11/09/2023 documented in this encounterAdena Regional Medical Center06-20-2024 History of Present illness Narrative* Anika Avila RT(R) - 11/04/2023 8:00 AM EDT Radiology Service Progress Note PATIENT NAME: Eren Merchant DATE OF SERVICE: November 04, 2023 TIME: 8:03 AM PATIENT IDENTITY VERIFICATION COMPLETED USING TWO (2) IDENTIFIERS: Name and Date of confirmedby patient verbally. FALL SCREENING: Has the patient had 2 falls in the last year or 1 fall with injury or currently using an Ambulatory Assistive Device (Walker, Cane, Wheelchair, Crutches, etc.)? No PATIENT GENDER DATA: Female. status: : No status: NO. PATIENT RELEVANT IMPLANT DATA REVIEWED: Not Applicable PATIENT PRESENTS WITH AN IMPLANTABLE OR ATTACHED CAR SALES CONSULTANT: No RADIOLOGY DEPARTMENT: General X-ray: Exam(s) Completed: Abdomen X-Ray: Abdomen PERIPHERAL IV DATA: Not applicable SIGNED BY: RT Myrna(R) November 04, 2023 8:03 AM documented in this encounterAdena Regional Medical Center06-18-2024 Telephone encounter Note * Telephone Encounter - Seema Calle RN - 11/02/2023 10:53 AM EDT Cancelled appt for 11/02. Will wait to get 200 units approved. See TE on 10/19. Seema Calle RN November 02, 2023 10:53 AM [facility] Miscellaneous Notes* Telephone Encounter - Seema Calle RN - 11/02/2023 10:53 AM EDT Cancelled appt for 11/02. Will wait to get 200 units approved. See TE on 10/19. Seema Calle RN November 02, 2023 10:53 AM * Telephone Encounter - Lori MannPharmacy Lei Seller)Ciaran - 11/02/2023 10:00 AM EDT === PHARMACY TEAM ==== ADDITIONAL INFORMATION NEEDED/REQUESTED Case Submitted: No Request Type: Provider Date of Service: 11/03/2023 Additional Information Needed: PER POLICY MAX DOSE 100 UNITS (HOW WOULD YOU LIKE TO PROCEED) Request from Payor by: N/A Email Sent to: ENCOUNTER-WILEY BENITEZ Requested Clinicals/Information Sent: N/A documented in this encounterAdena Regional Medical Center06-18-2024 Telephone encounter Note * Telephone Encounter - Lori MannPharmacy Ciaran Taylor - 11/02/2023 10:00 AM EDT === PHARMACY TEAM ==== ADDITIONAL INFORMATION NEEDED/REQUESTED Case Submitted: No Request Type: Provider Date of Service: 11/03/2023 Additional Information Needed: PER POLICY MAX DOSE 100 UNITS (HOW WOULD YOU LIKE TO PROCEED) Request from Payor by: N/A Email Sent to: ENCOUNTER-WILEY BENITEZ Requested Clinicals/Information Sent: N/A [facility] History of Present illness Narrative* Reef Cara Paez, RT(R) - 11/02/2023 8:20 AM EDT Radiology Service Progress Note PATIENT NAME: Eren Merchant DATE OF SERVICE: November 02, 2023 TIME: 1:12 PM PATIENT IDENTITY VERIFICATION COMPLETED USING TWO (2) IDENTIFIERS: Name and Date of confirmedby patient verbally. FALL SCREENING: Has the patient had 2 falls in the last year or 1 fall with injury or currently using an Ambulatory Assistive Device (Walker, Cane, Wheelchair, Crutches, etc.)? No PATIENT GENDER DATA: Female. status: : No status: NO. PATIENT RELEVANT IMPLANT DATA REVIEWED: Yes PATIENT PRESENTS WITH AN IMPLANTABLE OR ATTACHED CAR SALES CONSULTANT: No RADIOLOGY DEPARTMENT: CT; Exam(s) Completed: Chest PERIPHERAL IV DATA: Not applicable SIGNED BY: RT Jonathon(R) November 02, 2023 1:12 PM documented in this encounterAdena Regional Medical Center06-05-2024 Telephone encounter Note * Telephone Encounter - Seema Calle RN - 10/20/2023 9:37 AM EDT Botox referral received for 100 units -- 1st injection. Auth did not populate. Entered auth. Will monitor status. PPX antibiotics: Macrobid sent 10/19 to [facility] in [employer] Blood thinners: asa 81 mg LV: 10/06 with Barley Plan: 1. 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 CrCl calculated to be 65 mL/min. Rx sent. If no improvement in 4 weeks, patient to send [employer] message for alternative medication option. Is considering [...] reschedule for a later date. 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 Seema Calle RN October 20, 2023 9:50 AM [facility] Miscellaneous Notes* Telephone Encounter - Seema Calle RN - 10/20/2023 9:37 AM EDT Botox referral received for 100 units -- 1st injection. Auth did not populate. Entered auth. Will monitor status. PPX antibiotics: Macrobid sent 10/19 to [facility] in [employer] Blood thinners: asa 81 mg LV: 10/06 with Barley Plan: 1. 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 CrCl calculated to be 65 mL/min. Rx sent. If no improvement in 4 weeks, patient to send [employer] message for alternative medication option. Is considering [...] reschedule for a later date. 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 Seema Calle RN October 20, 2023 9:50 AM documented in this encounterAdena Regional Medical Center05-30-2024 Telephone encounter Note * Telephone Encounter - Susana Bhardwaj MA - 10/14/2023 9:57 AM EDT Pt willing to see Neuro at another location. Advised her to call in and schedule. Susana Bhardwaj MA [facility]05-30-2024 Miscellaneous Notes* Telephone Encounter - Susana Bhardwaj MA - 10/14/2023 9:57 AM EDT Pt willing to see Neuro at another location. Advised her to call in and schedule. Susana Bhardwaj MA * Telephone Encounter - Susana Bhardwaj MA - 10/14/2023 8:57 AM EDT Awaiting pt reply to additional questions. Susana Bhardwaj MA documented in this encounterAdena Regional Medical Center05-30-2024 Telephone encounter Note * Telephone Encounter - Susana Bhardwaj MA - 10/14/2023 8:57 AM EDT Awaiting pt reply to additional questions. Susana Bhardwaj MA [facility]05-30-2024 Instructions* Patient Instructions* Jacqueline Valadez APRN.CNP - 10/14/2023 7:13 AM EDT Start Propanolol 10 mg, take 1 tablet daily for 1 week then increase to twice daily Recommend consult with Neurology, Dr. Montero Follow up in 1 month if needed. documented in this encounterAdena Regional Medical Center05-30-2024 History of Present illness Narrative* Jacqueline Valadez APRN.CNP - 10/14/2023 7:00 AM EDT This is a 63 year old female who presents today with: Patient presents with: Acute Visit: Tremors in hands and mouth HISTORY OF PRESENT ILLNESS: Eren Merchant is a 63 year old female. Patient [...] leiomyoma of uterus Malnutrition of moderate degree ([facility]) 06/15/2018 Obesity, Class I, BMI 30-34.9 E66.9 09/03/2017 Osteopenia Overactive bladder Primary osteoarthritis of first carpometacarpal joint of right hand 08/05/2017 Added automatically from request for surgery [id number] Rectal bleed 09/05/2014 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, Masaoka [...] UNI/BI Tubal ligation LX PARTIAL COLECTOMY 12[facility] lap lysis of adhesions, left oopherectomy, [...] were discussed and patient voices understanding. Jacqueline Valadez APRN.EMPLOYMENT SERVICES DIRECTOR This note was partially generated using Synclogue recognition system. Note was reviewed for accuracy. There may be minor misspellings or grammar miscues with [employer]st[employer] voice recognition. documented in this encounterAdena Regional Medical Center05-23-2024 Instructions* Patient Instructions* Tariq Brooks APRN.CNP - 10/07/2023 9:12 AM EDT Pelvic Floor Physical Therapy Call [phone] for an appointment for pelvic floor physical therapy. [email or web address] [facility] -- [facility] -- [facility] [place] -- [facility] [place] -- [facility] -- [facility], [facility] [place] -- [facility] -- [facility] -- [facility] -- [facility] -- [facility] -- [facility] -- [facility] -- [facility] -- [facility], [facility] -- [facility] [place] -- [facility] -- [facility], [facility] --[facility] Medical [facility] -- [facility] [employer] -- [facility] -- [facility] documented in this encounterAdena Regional Medical Center05-23-2024 History of Present illness Narrative* Tariq Brooks APRN.CNP - 10/07/2023 8:30 AM EDT Female Pelvic Medicine & Reconstructive Surgery Follow-Up Eren Merchant is a 63 year old female, who presents for a follow-up of vulvar burning, urinary frequency. History since last visit: Has been applying vaginal estrogen cream with applicator 3x/week, states vulvar burning has significantly improved. Still has occasional burning. Spoke with [employer], was put on program 6 at 1.4 [...] the PFSH obtained by others. Tariq Brooks APRN.EMPLOYMENT SERVICES DIRECTOR [employer] Se[employer] offered: Patient declines. OBJECTIVE: LMP 01/07/2011 General: Well appearing, alert, in no acute distress, well-hydrated, well nourished. Abdomen: Abdomen soft, non-tender Pelvic: Ext. Genitalia: No lesions or other abnormalities Vagina: atrophic epithelium, patient noted burning to be at posterior fourchette, atrophic tissue present Urethra: Normal Bimanual: No tenderness, No masses Rectovaginal: Deferred UA results: N/A Bladder scan: N/A Impression: Eren Merchant is a 63 year old female with OAB, vaginal burning, vaginal atrophy. Plan: 1. Overactive bladder - Continue to adjust interstim based off medtronic parts representative's recommendations - Discussed r/b/a of trospium, including possible side effects of dry eye, dry mouth, constipation,cognitive side effects when used alf. CrCl calculated to be 65 mL/min. Rx sent. If no improvement in 4 weeks, patient to send [employer] message for alternative medication option. Is considering [...] Moderate Tariq Brooks APRN.CNP documented in this encounterAdena Regional Medical Center05-02-2024 History of Present illness Narrative* Karen Alcantara MD - 09/16/2023 1:15 PM EDT Images from the original note were not included. . [facility] [place] Note Patient name: Eren Merchant PCP: Priyanka Smith MD CC: Follow-up NSIP HPI: Eren Merchant 63 year old female never smoker with PMH significant for thymoma, hypothyroidism, GERD, esophageal dysmotility, ILD/NSIP. 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 Chest CT showed peribronchovascular groundglassopacities and central traction bronchiectasis. 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 She was started on prednisone and CellCept. Required increase in her CellCept dose [id number] mg a day after surveillance CT showed [...] antibiotics. From a respiratory standpoint she denies anysymptoms of shortness of breath, cough, chest pain. She has not been ill with any upper respiratoryinfections nor required hospitalization. No adverse effects from [...] 08/05/2017 Added automatically from request for surgery [id number] Rectal bleed 09/05/2014 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, Masaoka [...] UNI/BI Tubal ligation LX PARTIAL COLECTOMY 12[facility]23/[facility] lap lysis of adhesions, left oopherectomy, right salpinoopherectomy, left salpingectomy, redo lap sigmoid colectomy w/ressection, lap mobilization of splenic flexure, lap appendectomy PAST SURGICAL HISTORY OF 10/2008 T9-L1 fusion, Dr. Lemon PAST SURGICAL HISTORY OF 10/24/2009 Removed T9-L1, 2 rods and 8 screws, Dr Lemon PAST SURGICAL HISTORY OF 11/2018 Hysteroscopy with D&C and Polypectomy with Burroughs and NephCoverMe Truclear device PICC LINE INSERT/CONSULT 07/11/2018 THYMECTOMY [...] metabolic panel. Ordered CBC and liver panel Karen Alcantara MD [facility] [place] documented in this encounterAdena Regional Medical Center04-25-2024 History of Present illness Narrative* Tariq Brooks APRN.EMPLOYMENT SERVICES DIRECTOR - 09/09/2023 9:00 AM EDT UROGYN TELEPHONE VISIT PROGRESS NOTE This is a telephone encounter initiated for an established patient, parent or guardian not originating from a related Evaluation & Management service provided within the previous 7 days nor leading to an Evaluation & Management service or procedure within the next 24 hours or soonest available appointment. Patient identified by and name. Eren Merchant has consented to this telephone encounter. Persons Present: patient 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/Reason: OAB and interstim follow up HPI: Urine culture from 09/01 positive, treated with bactrim x 3 days. States urinary frequency symptomsdid not improve much with the bactrim. States [...] if she does not have improvement with [employer] phone call. Data Reviewed: Most recent labs [...] with [employer] rep, will evaluate next steps. [employer] message sent to aid in communication Total Time Spent: 5-10 minutes Tariq Brooks APRN.CNP documented in this encounterAdena [facility]04-18-2024 History of Present illness Narrative* Tariq Brooks APRN.CNP - 09/02/2023 8:30 AM EDT Female Pelvic Medicine & Reconstructive Surgery Follow-Up Eren Merchant is a 63 year old female, who presents for a follow-up of urinary incontinence, urinary urgency, urinary frequency. AMAN on 02/25/2023 with me: ASSESMENT: Eren Merchant is a 62 year old female who [...] she has tried all 7 interstim programs, advancingeach in amplitude until she could not tolerate [...] small to large amount. She changes pad 3- 4 x/day. Does not leak in sleep. Drinks about 16 oz water, 8 ozof water or tea/lemonade, 8 oz milk. Does [...] Tried myrbetriq and oxybutynin without relief, tried 100units of botox without improvement on 09/14/2022 and then proceeded with interstim, did not try 200units. Does have a large kidney stone found on CT in 07/2022, follows with Dr. Yang. CrCl 67 mL/min. Hashad recent CT urogram and cystoscopy (2022). Cystoscopy [...] the PFSH obtained by others. Tariq Brooks APRN.EMPLOYMENT SERVICES DIRECTOR Drag Seiner offered: Patient declines. OBJECTIVE: BP 102/72 LMP 01/07/2011 General: Well appearing, alert, in no acute distress, well-hydrated, well nourished. Urine dip results: moderate blood, protein, large leukocytes Bladder scan: 0 ml Impression: Eren Merchant is a 63 year old female with [...] Making Level: 4 - Moderate Tariq Brooks APRN.SAMIR documented in this encounterAdena Regional [facility] Center04-17-2024 Miscellaneous Notes* Telephone Encounter - Hilary Sandoval RN - 09/01/2023 9:28 AM EDT Refill request received via [employer]. Last seen 11/26/21. Is scheduled for upcoming annual exam on 11/29/23. Hilary Sandoval RN documented in this encounterAdena Regional Medical Center04-04-2024 Miscellaneous Notes* Letter - Coordinator, Mammography - 08/19/2023 5:59 PM EDT August 20, 2023 PID: [id number] Eren HuitronKaleb Merchant [address] [place] [address] Dear Ms. Merchant, We are pleased to inform you that [...] report will be [facility] as part of your permanent medical record and are available for your continuing care. Thank you for allowing us to help in meeting your health care needs. Sincerely, Dr. Ruiz Interpreting Radiologist [facility] (Normal over 40) documented in this encounterAdena Regional Medical Center04-03-2024 History of Present illness Narrative* Chiquita Cook, Mammo Tech - 08/18/2023 9:10 AM EDT Radiology Service Progress Note PATIENT NAME: Eren Merchant DATE OF SERVICE: August 18, 2023 TIME: 9:15 AM PATIENT IDENTITY VERIFICATION COMPLETED USING TWO (2) IDENTIFIERS: Name and Date of confirmedby patient verbally. FALL SCREENING: Has the patient had 2 falls in the last year or 1 fall with injury or currently using an Ambulatory Assistive Device (Walker, Cane, Wheelchair, Crutches, etc.)? No PATIENT GENDER DATA: Female. status: : No status: NO. PATIENT RELEVANT IMPLANT DATA REVIEWED: Not Applicable PATIENT PRESENTS WITH AN IMPLANTABLE OR ATTACHED CAR SALES CONSULTANT: No RADIOLOGY DEPARTMENT: Mammography PERIPHERAL IV DATA: Not applicable SIGNED BY: Idalia Riverao Yessy August 18, 2023 9:15 AM documented in this encounterAdena Regional Medical Center03-25-2024 Miscellaneous Notes* Telephone Encounter - Priyanka Smith MD - 08/09/2023 12:14 PM EDT Order filed Priyanka Smith MD * Telephone Encounter - Tess Persaud MA - 08/06/2023 4:35 PM EDT Pended orders. Previous order was ordered by BAG FILLER MACHINE OPERATOR. Tess Persaud Ma, * Telephone Encounter - Jacqueline Bishop - 08/06/2023 4:00 PM EDT Patient scheduled mammogram screening with available order. Patient previously had mammogram screening with JENN. Please resubmit the appropriate order if necessary. documented in this encounterAdena Regional Medical Center03-25-2024 Miscellaneous Notes* Telephone Encounter - Karla Stroud MA - 08/09/2023 11:39 AM EDT Patient electronically requesting refills as follows: Requested Prescriptions Pending Prescriptions Disp Refills metoclopramide HCl (REGLAN) 5 mg tablet 90 tablet 5 Sig: Take 1 tablet by mouth three times a day. predniSONE (DELTASONE) 5 mg tablet 30 tablet 5 Sig: Take 1 tablet by mouth once daily. Please review and advise. Karla Stroud MA documented in this encounterAdena Regional Medical Center02-06-2024 History of Present illness Narrative* Priyanka Smith MD - 06/22/2023 9:20 AM EST Eren Merchant is a 63 year old female here [...] as PCP - General (Family Medicine) Dr. Alcantara - Pulmonary Dr. Mg/Tariq Brooks - BAG FILLER MACHINE OPERATOR Dr. Yang - Urology Medical/Family history review Reviewed and updated problem list, medical/surgical/family/social history, medications, and allergies. Opioid use review Opioid Medications (last 90 days) Some values may be hidden. Unless noted otherwise, only the newest values recorded on each date aredisplayed. Opioid Medications No data to display. Depression screening Depression Screening PHQ-2 Score PHQ-9 Score YOVANY-2 Total Score 06/22/2022 0 - - Depression screening tool completed and reviewed. Based on score and interview, patient is not at risk for depression. Screening tool discussed with patient, and I recommended no further interventionat this time. Cognitive screening Mini Cog Score: [...] Patient presents with: Medicare Wellness Exam HPI Eren Merchant is a 63 year old female who presents here today for 6 month follow up, in addition to Medicare Wellness. Thyroid: Taking Synthroid 100 mcg daily. Doing well on this dosage. Hx of low sodium/potassium, monitored through routine labs. Elevated BUN and Creatinine on previouslabs, continue monitoring. Glucose - Elevated glucose, currently on no medications. Does watch diet, does eat home cooked meals, no processed foods. Drinks a lot of water, no pop. Denies much exercise in her diet. Pulmonary - Follows with Dr. Alcantara. Hx of ILD/NSIP. On current regimen of [...] 08/05/2017 Added automatically from request for surgery [id number] Rectal bleed 09/05/2014 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, Masaoka [...] UNI/BI Tubal ligation LX PARTIAL COLECTOMY 12[facility]23/[facility] lap lysis of adhesions, left oopherectomy, [...] 72 Resp 18 Ht 165.1 cm (5' 5) Wt 93.6 kg (206 lb 6.4 oz) LMP 01/07/2011 BMI 34.35 kg/m General Appearance: Well appearing, alert, in no acute distress, well-hydrated, well nourished. andObese. Neck: Supple, no adenopathy; thyroid symmetric, normal size, no bruits. Lungs: Lungs clear to auscultation. No wheezing, rhonchi, rales.. Heart: RRR without murmur, gallop, or rubs. No ectopy. Health Maintenance List RSV Vaccine(1 - 1-dose 60+ series) Never done Covid-19 Vaccine(2022- season) due on 04/21/2023 Advance Directive Discussion Never [...] Past Histories independently gathered by the clinical lab support technician and the remaining scribed note accurately describes [...] AM. Tess Persaud Ma documented in this encounterAdena [facility] Medical Center10-16-2023 History of Present illness Narrative* Clementina Zaldivar LPN - 03/01/2023 10:01 AM EDT Patient presents for TDAP vaccine. Denies any problems at this time. Tolerated injection well. Clementina Zaldivar LPN documented in this encounterAdena Regional Medical Center10-12-2023 History of Present illness Narrative* Cecilia TariqHAILE.EMPLOYMENT SERVICES DIRECTOR - 02/25/2023 10:30 AM EDT Female Pelvic Medicine & Reconstructive Surgery Post-Op Visit Eren Merchant is a 62 year old female who [...] but did not fully resolve. She has workedwith Mary Lindsay to turned up program 6 [...] have the amount of pain you expected, morepain, or less pain? Much less pain than I expected Was the preoperative teaching you had about pain expectations helpful? Not sure Were the discharge instructions you received about pain medications helpful? Yes Drag Seiner offered:Patient declines OBJECTIVE: LMP 01/07/2011 General: Well appearing, alert, in no acute distress, well-hydrated, well nourished. Low back: surgical site is well healed No impedence detected. Battery fully charged. Increased to 2.0. Reviewed with patient how to increase amplitude and how to change program. Program 6, increased to 2.0 ASSESMENT: Eren Merchant is a 62 year old female who [...] antibiotics Tariq Brooks APRN.SAMIR documented in this encounterAdena Regional Medical Center09-25-2023 Miscellaneous Notes* Telephone Encounter - Cara Juares LPN - 02/08/2023 4:05 PM EDT Patient phones requesting refills as follows: Requested Prescriptions Pending Prescriptions Disp Refills predniSONE (DELTASONE) 5 mg tablet Sig: Take 1 tablet by mouth once daily. Please review and advise. Cara Juares LPN documented in this encounterAdena Regional Medical Center09-01-2023 History of Present illness Narrative* John Mg MD - 01/15/2023 8:00 AM EDT Patient: Eren Merchant Date of Service: 01/15/2023 UNIVERSAL PROTOCOL / [...] foraminal location was confirmed with positive patient sen sation in the rectum and vagina. I then picked a point 4 cm to the patient's right side from the needle. I placed the InterStim needle at an approximately 60 degree angle in a similar fashion, entered the S3 foramen. The S3 foraminal location was confirmed. The temporary electrode and stylette wereintroduced through the introducer needle and the stylettes [...] OR. John Mg MD documented in this encounterAdena Regional Medical Center08-29-2023 Instructions* Patient Instructions* Abdulkadir Amaya PA-C - 01/12/2023 10:58 AM EDT PATIENT PREOPERATIVE INSTRUCTIONS [facility]: [phone] -- [address] [facility] [address]. Please read below carefully for your personalized [...] Procedures: - YOU MUST HAVE A RESPONSIBLE IRRIGATION LABORER TAKE YOU HOME. A SILICA SPRAY MIXER OR FUEL ASSEMBLER CANNOT BE MADE A RESPONSIBLE IRRIGATION LABORER. - We recommend that a responsible person stays with you overnight to take care of you. - You cannot stay in a hotel alone after outpatient surgery. You will not be permitted to have yoursurgery, if you do not have someone to [...] Advance Directive, please fax a copy to [phone] or email to for it to be added to your chart. If you do not have an Advance Directive, you can find the appropriate form and more information at [email or web address]. We recommend that youcomplete the Advance Directive form found on the website and bring it with you the day of your surgery. It can be witnessed and scanned into your chart that day. documented in this encounterAdena Regional Medical Center08-29-2023 History and physical note * Abdulkadir Amaya PA-C - 01/12/2023 10:40 AM EDT Images from the original note were not included. HISTORY AND PHYSICAL EXAMINATION SERVICE DATE: 01/12/2023 SERVICE TIME: 10:38 AM PRIMARY CARE PHYSICIAN: Priyanka Smith MD REASON FOR VISIT: Eren Merchant is a 62 year old female who is scheduled for Procedure(s): INSERTION STIMULATOR GENERATOR BLADDER (Bilateral) IMPLANT STIMULATOR LEAD(S) BLADDER INCISIONAL APPROACH (Bilateral) FLUOROSCOPIC GUIDANCE/LOCALIZATION OF NEEDLE/CATHETER TIP FOR DIAG OR THERAPUETIC SPINE/PARASPINOUSINJECTION PROCEDURES (Bilateral) at the request of John [...] Acute Esophageal Dysmotility Nsip (Nonspecific Interstitial Pneumonitis) ([facility]) Current Chronic Use of Systemic Steroids High Risk Medication Use Stage 3a Chronic Kidney Disease (Hcc) COVID-19 Immunization Status Overdue - COVID-19 VACCINE (5 - Inna risk series) Overdue since 05/01/2022 03/06/2022 Imm Admin: COVID-19 vaccine, age 12+ yr, bivalent (PFIZER-BIONTECH) 12/22/2021 Imm Admin: COVID-19 original vaccine, age 12+ yr, monovalent (PFIZER- BIONTECH - TALBOT TOP) 04/07/2021 Imm Admin: COVID-19 original vaccine, age 12+ yr, monovalent (PFIZER- BIONTECH - PURPLE TOP) Only the first 3 history entries have been loaded, but more history exists. CHIEF COMPLAINT: urinary frequency HPI: Eren Merchant is a 62 year old female presenting for pre-anesthesia consultation with her . Pt has history of OAB and urinary frequency since 2019. She has tried and failed tx with multiple medications. Denies dysuria or gross hematuria currently. Above procedure recommended to managesymptoms. Procedure scheduled on 01/28/2023 at [place]. REVIEW OF SYSTEMS: General: No weight loss, malaise or fevers. Neurological: No history of TIA's, stroke, PHYSICIAN OFFICE NURSE tumor, impaired sensorium, hemiplegia, paraplegia orquadraplegia. No neurological symptoms or problems. Respiratory: +ILD/NSIP - s/p R VATS biopsy of upper, middle and lower lung for pulmonary infiltrates 03/2020, on Cellcept and prednisone 5 mg, follows with Dr. Alcantara, AMAN 10/30/22, normal PFT 11/2022 Negative for: current cough, tobacco use, URI < 2 weeks and obstructive sleep apnea. Cardiovascular: Positive for: DVT/PE (remote h/o RLE DVT - post-op after back surgery 2008) Negative for: arrhythmia, atrial fibrillation, CHF, hyperlipidemia, hypertension, recent TN and murmur/valvular heart disease. GI: +Esophageal dysmotility [...] leiomyoma of uterus Malnutrition of moderate degree ([facility]) 06/15/2018 Obesity, Class I, BMI 30-34.9 E66.9 09/03/2017 Osteopenia Overactive bladder Primary osteoarthritis of first carpometacarpal joint of right hand 08/05/2017 Added automatically from request for surgery [id number] Rectal bleed 09/05/2014 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, Masaoka [...] UNI/BI Tubal ligation LX PARTIAL COLECTOMY 12/23/[facility] lap lysis of adhesions, left oopherectomy, [...] Electronically Signed On 11-16-2022 12:36:36 EDT by Karen Alcantara M.D. ECG 03/22/2020 Diagnosis: NORMAL SINUS RHYTHM NORMAL ECG Confirmed by MD ZAHEER, PhD, ROBB ([id number]) on 03/26/2020 2:22:16 PM CUS 01/02/2019 IMPRESSION [...] and prednisone 5 mg, follows with Dr. Alcantara, LVO 10/30/22, normal PFT 11/2022. S/p R [...] Thick neck: yes Lip Bite Test: I Microretrognathia/Micronagthia/Recessed Chin: No DENTAL Dental findings: teeth intact and broken tooth. II - ANESTHESIA PLAN Anesthetic Plan: other Anesthetic plan additional comments: *PACC/TCI - anesthesia choice. Beta Eladio Monitoring Plan Post Procedure Analgesic Plan Prepared [...] instructions and voices comprehension and compliance. SIGNATURE: Abdulkadir Amaya PA-C PATIENT NAME: Eren Merchant DATE: January 12, 2023 TIME: 10:38 AM PAGER/CONTACT #: documented in this encounterAdena Regional Medical Center08-08-2023 History of Present illness Narrative* Priyanka Smith MD - 12/22/2022 9:20 AM EDT 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 Patient presents with: F/U 6 Month HPI Eren Merchant is a 62 year old female who presents here today for a 6 month follow up. Pt here today for a 6 month follow up. 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 GI/Uro - Denies any stomach or bowel issues. Follows with Urology, Dr. Yang and Uro/BAG FILLER MACHINE OPERATOR, Dr. Mg. Hx of acute cystitis, gross [...] - Stable. Previously followed with GI in [place], Dr. Franklin. No longer on PPI. Hx [...] routine labs. Pulm - Follows with Dr. Alcantara. Hx of ILD/NSIP. On current regimen of [...] 08/05/2017 Added automatically from request for surgery [id number] Rectal bleed 09/05/2014 Thymoma Resected 07/14/17, Masaoka [...] UNI/BI Tubal ligation LX PARTIAL COLECTOMY 12/23/[facility] lap lysis of adhesions, left oopherectomy, [...] in no acute distress, well-hydrated, well nourished. andObese. Neck: Supple, no adenopathy; thyroid symmetric, normal [...] 11/16/2022 2.67 FEV1/FVC PRE (%) 11/16/2022 86 KBW94-64% PRE (L/S) 11/16/2022 3.85 PEF PRE (L/S) [...] 11/02/2022 2.47 Monocytes % 11/02/2022 10.6 Abs Gregory 11/02/2022 1.08 (H) Eosinophils % 11/02/2022 0.2 [...] 596.51, ICD10: N32.81 - Cont f/u with BAG FILLER MACHINE OPERATOR 7. Low sodium levels - ICD9: 276.1, ICD10: E87.1 - Stable monitor labs 8. 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 I agree with the 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, ROS, and Past Histories independently gathered by the clinical lab support technician and the remaining scribed note accurately describes [...] AM. Tess Persaud Ma documented in this encounterAdena Regional Medical Center07-13-2023 Miscellaneous Notes* Telephone Encounter - Susana Bhardwaj Ma - 11/26/2022 2:54 PM EDT Pt notified of results via [employer]. Susana Bhardwaj Ma * Telephone Encounter - Jacqueline Valadez APRN.CNP - 11/26/2022 2:23 PM EDT Can you please call the patient and let her know that I sent in a prescription for fluconazole 100 mg daily for the next 2 weeks. If she is still having symptoms then I would recommend a follow-up inoffice. Please let me know if she has any questions. Thank you. The following approved medication requests have been transmitted electronically. Requested Prescriptions Signed Prescriptions Disp Refills fluconazole (DIFLUCAN) 100 mg tablet 14 tablet 0 Sig: Take 1 tablet by mouth once daily for 14 days. Authorizing Provider: JACQUELINE VALADEZ APRN.SAMIR * Telephone Encounter - Mariam Woods LPN - 11/25/2022 2:45 PM EDT Patient phones requesting refills as follows: Patient comment: Dr Alcantara said there was a pill I could [...] advise. Mariam Woods LPN documented in this encounterAdena Regional Medical Center07-03-2023 History of Present illness Narrative* Ernestina Tavarez, DM - 11/16/2022 10:02 AM EDT PULM FUNCTION SMARTBLOCK: Provider: Karen Alcantara MD Assisting Tech: DM Zuñiga Spirometry: 1 DLCO: 1 LV - Box: 1 documented in this encounterAdena Regional Medical Center06-23-2023 History of Present illness Narrative* John Mg MD - 11/06/2022 2:56 PM EDT Order placed for Intersim generator and lead placement in the [facility] OR on January 28. documented in this encounterAdena Regional Medical Center06-20-2023 History of Present illness Narrative* Mathew Yang Jr., MD - 11/03/2022 12:16 PM EDT ESTABLISHED PATIENT OFFICE VISIT HPI Eren Merchant is a 62 year old female who presents refer for frequency/urgency. On no current meds. Has to void q 2 hours day and night. Ho colon resection. Has severe constipation. Has bm 1x/week.Seeing her general surgeon soon. Supposed to be [...] Date Value 05/22/2022 Negative 03/22/2020 Negative Specific [place], Ur (no units) Date Value 05/22/2022 1.010 [...] 08/05/2017 Added automatically from request for surgery [id number] Rectal bleed 09/05/2014 Thymoma Resected 07/14/17, Masaoka [...] appearing, alert, in no acute distress, and well- hydrated, well nourished Skin: Skin color, texture, turgor normal, no suspicious rashes or lesions Respiratory:+ effort Cardiovascular: Not examined GI: Normal abdominal exam, Abdomen soft, non-tender. No masses, organomegaly Musculoskeletal: Negative Neuro: Negative Genitourinary: not examined Impression: (N20.0) Kidney stone (primary encounter diagnosis) Plan: 1 year Kub prior Mathew Yang Jr, MD 11/03/2022 documented in this encounterAdena Regional Medical Center06-13-2023 History of Present illness Narrative* Cara Connors, RT(R) - 10/27/2022 8:40 AM EDT Radiology Service Progress Note PATIENT NAME: Eren Merchant DATE OF SERVICE: October 27, 2022 TIME: 4:15 PM PATIENT IDENTITY VERIFICATION COMPLETED USING TWO (2) IDENTIFIERS: Name and Date of confirmedby patient verbally. FALL SCREENING: Has the patient [...] 27, 2022 4:15 PM documented in this encounterAdena Regional Medical Center06-01-2023 Miscellaneous Notes* Telephone Encounter - Gerri MARIN - 10/15/2022 4:01 PM EDT Images from the original note were not included. Lm to call back and schedule. Gerri Yang Jr., MD [facility] Exchange Clerical Pool Needs appt to discuss test results documented in this encounterAdena Regional Medical Center06-01-2023 NoteHNO ID: [id number] Author: CELIA Vee Service: Radiology Author Type: [...] 8:30 PATIENT DISCHARGED TO: Ambulatory patient, left [place] department area. A Diagnostic radioactive procedure has taken place, with no further precautions necessary other than routine body substance precautions. More information regarding radiation safety can be found using this link: [email or web address] SIGNATURE: CELIA Vee PATIENT NAME: Eren Merchant DATE: October 15, 2022 TIME: 11:07 AM [phone] History of Present illness Narrative* CELIA Vee - 10/15/2022 8:00 AM EDT RADIOLOGY SERVICE PROGRESS NOTE SERVICE DATE: 10/15/2022 [...] creatinine assay has traceable calibration to isotope dilution- mass spectrometry. Refer to KDIGO guidelines for clinical interpretation. In patients with unstable renal function, e.g. those with acute kidney injury, the eGFRmay not accurately reflect actual GFR. eGFR- Date [...] information regarding radiation safety can be found usingthis link: [email or web address] 20Diagnostic%20Nuclear%20Medicine%20Procedures.[email or web address] SIGNATURE: CELIA Vee PATIENT NAME: Eren Merchant DATE: October 15, 2022 TIME: 11:07 AM PAGER/CONTACT #: documented in this encounterAdena Regional Medical Center05-30-2023 History of Present illness Narrative* Lala Ruiz APRN.CNP - 10/13/2022 8:32 AM EDT AMBULATORY TELEPHONE VISIT Eren Merchant has consented to this telephone encounter. Persons [...] units Total Time Spent: 15 minutes Lala Ruiz APRN.EMPLOYMENT SERVICES DIRECTOR documented in this encounterAdena Regional Medical Center05-03-2023 Nurse Note* Lacy Ruiz RN - 09/16/2022 8:25 AM EDT Pt here for a dowd catheter removal [...] has follow up virtual appointment scheduled with THERMOSTATIC CONTROLS SUPERVISOR following botox injections. documented in this encounterAdena Regional Medical Center2023 History of Present illness Narrative* Priyanka Smith MD - 08/20/2022 2:20 PM EDT 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 Patient presents with: Follow Up HPI Eren Merchant is a 62 year old female who [...] of NSIP and follows with Pulmonary, Dr. Alcantara. Past medical history, appointments, medications, allergies reviewed. 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 GERD (gastroesophageal reflux disease) 10/01/2017 Hives Intramural leiomyoma of uterus Malnutrition of moderate degree ([facility]) 06/15/2018 Obesity, Class I, BMI 30-34.9 E66.9 09/03/2017 Primary osteoarthritis of first carpometacarpal joint of right hand 08/05/2017 Added automatically from request for surgery [id number] Rectal bleed 09/05/14 Thymoma Resected 07/14/17, Masaoka [...] UNI/BI Tubal ligation LX PARTIAL COLECTOMY 12[facility]23/[facility] lap lysis of adhesions, left oopherectomy, right salpinoopherectomy, left salpingectomy, redo lap sigmoid colectomy w/ressection, lap mobilization of splenic flexure, lap appendectomy PAST SURGICAL HISTORY OF 10/2008 T9-L1 fusion, Dr. Lemon PAST SURGICAL HISTORY OF 10/24/2009 Removed T9-L1, 2 rods and 8 screws, Dr Lemon PAST SURGICAL HISTORY OF 11/2018 Hysteroscopy with D&C and Polypectomy with Burroughs and [employer] Truclear device PICC LINE INSERT/CONSULT 07/11/2018 THYMECTOMY [...] Past Histories independently gathered by the clinical lab support technician and the remaining scribed note accurately describes my personal service to the patient. Medical Decision Making: Problems: Low: Acute, uncomplicated illness or injury Risk: Moderate: Drug management Medical Decision Making Level: 3 - Low Priyanka Smith MD The documentation for this note was completed by Susana Bhardwaj Ma acting as scribe for Priyanka Smith MD. August 20, 2022 2:13 PM. Susana Bhardwaj Ma documented in this encounterAdena [facility]03-30-2023 Miscellaneous Notes* Telephone Encounter - Alysha Miller MA - 08/13/2022 7:47 AM EDT Pt was notified of the results. Pt verbalized understanding. Alysha Miller MA * Telephone Encounter - Guillermo Mccormick APRN.CNP - 08/12/2022 7:12 PM EDT No acute findings noted on x-ray. Start antibiotics as prescribed. Follow-up with PCP next 3 to 5 days symptoms are not improving. 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 Patient was instructed to i mmediately proceed to emergency room for any new, worsening, or symptoms lasting longer than anticipated. The patient's clinical presentation is otherwise unremarkable at this time. Based on exam andclinical finding, the patient is stable for discharge. Plan of care was discussed with patient. Patient verbalizes understanding and agrees to plan of care. This note was generated using OpenEd software. It may contain errors in wording, punctuation, or spelling. Guillermo Mccormick APRN.CNP documented in this encounterAdena Regional Medical Center03-28-2023 NoteHNO ID: [id number] Author: MARK Earl Service: Radiology Author Type: Technologist Type: Progress Notes Filed: 08/11/2022 3:33 PM Note Text: Radiology Service Progress Note PATIENT NAME: Eren Merchant DATE OF SERVICE: August 11, 2022 TIME: [...] BY: MARK Earl August 11, 2022 3:33 PMMer[facility] [id number] History of Present illness Narrative* Kimmy Zamora CT - 08/11/2022 3:40 PM EDT Radiology Service Progress Note PATIENT NAME: Eren Merchant DATE OF SERVICE: August 11, 2022 TIME: 3:33 PM PATIENT IDENTITY VERIFICATION COMPLETED USING TWO (2) IDENTIFIERS: Name and Date of confirmedby patient verbally. FALL SCREENING: Has the patient [...] 11, 2022 3:33 PM documented in this encounterAdena Regional Medical Center03-28-2023 History of Present illness Narrative* Mathew Yang Jr., MD - 08/11/2022 2:59 PM EDT ESTABLISHED PATIENT OFFICE VISIT HPI Eren Merchant is a 62 year old female who presents refer for frequency/urgency. On no current meds. Has to void q 2 hours day and night. Ho colon resection. Has severe constipation. Has bm 1x/week.Seeing her general surgeon soon. 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 Merchant, We are pleased to inform you that [...] report will [facility] as part of your permanent medical record and are available for your continuing care. Thank you for allowing us to help in meeting your health care needs. Sincerely, Dr. Sherman Interpreting Radiologist [facility] (Normal over 40) documented in this encounterAdena Regional Medical Center03-09-2023 History of Present illness Narrative* Danni Yeung RT(R) - 07/23/2022 12:50 PM EST Radiology Service Progress Note PATIENT NAME: Eren Merchant DATE OF SERVICE: July 23, 2022 TIME: 12:44 PM PATIENT IDENTITY VERIFICATION COMPLETED USING TWO (2) IDENTIFIERS: Name and Date of confirmedby patient verbally. FALL SCREENING: Has the patient had 2 falls in the last year or 1 fall with injury or currently using an Ambulatory Assistive Device (Walker, Cane, Wheelchair, Crutches, etc.)? No PATIENT GENDER DATA: Female. status: : No status: NO. PATIENT RELEVANT IMPLANT DATA REVIEWED: Not Applicable RADIOLOGY DEPARTMENT: Mammography PERIPHERAL IV DATA: Not applicable SIGNED BY: RT Ly(Denisse) July 23, 2022 12:44 PM documented in this encounterAdena Regional Medical Center02-15-2023 Instructions* Patient Instructions* KAUSHAL Lockhart - 07/01/2022 6:12 PM EST [...] or fungal infections. Be sure to finish entirecourse of prescribed antibiotics to avoid complications. ACTIVITY: [...] Dark urine. Chest pain. documented in this encounterAdena Regional Medical Center02-15-2023 History of Present illness Narrative* KAUSHAL Lockhart - 07/01/2022 6:10 PM EST This note was created using NoteWriter. Subjective Eren Merchant is a 62 year old female. HPI 62-year-old female presents for fever and sore throat. Patient states that fever started on Wednesday. She started getting a sore throat last night. No runny nose. States she always has a dry cough,unchanged. No chest pain or shortness of breath. 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 KAUSHAL Lockhart documented in this encounterAdena Regional Medical Center02-06-2023 Instructions* Patient Instructions* Susana Bhardwaj Ma - 06/22/2022 3:02 PM EST Follow up in 6 months as scheduled. documented in this encounterAdena Regional Medical Center02-06-2023 History of Present illness Narrative* Priyanka Smith MD - 06/22/2022 2:40 PM EST 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 Patient presents with: 6 Month Exam HPI Eren Merchant is a 62 year old female who presents here today for a 6 month follow up. Pt here today for her routine 6 month follow up. No bowel, Gi, or urinary issues. Follows with Dr. 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 Hx of acute cystitis, gross hematuria and OAB. Pt using Estrace vaginal cream. Previously took Mybetriq. She does have some burning with urination which she is working with BAG FILLER MACHINE OPERATOR/Uro with. She had a CT scan done that did show some nonobstructing kidney stones. She states that she does occ have blood in the urine or when she wipes. Pt advised to follow up with Uro BAG FILLER MACHINE OPERATOR as scheduled and if any other questions/concerns to contact their office. GERD: Stable. No longer on Omeprazole. Has followed with GI in the past for issues of brad esophagitis, odynophagia and esophageal dysmotility. Has used Nystatin rinse in the past. Her Gastro doctor Dr. Franklin has moved to [place] and she doesn't want to drive that far. Thyroid: Stable on current regimen of Levothyroxine 100 mcg once daily. Denies any missed dosages. Pulm: Hx of ILD/NSIP, follows with Dr. Alcantara every 6 months. 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 andOverweight. Lungs: Lungs with faint crackles diffusely Heart: [...] Lymph% 05/23/2022 19.5 Abs Lymph 05/23/2022 2.27 Gregory% 05/23/2022 7.5 Abs Gregory 05/23/2022 0.88 (A) Eosin% 05/23/2022 0.1 Abs [...] 50,000-<100,000 CFU/ml Proteus mirabilis (A) Color 05/22/2022 [place] (A) Clarity 05/22/2022 Clear Glucose, Urine 05/22/2022 Negative Bilirubin, Urine 05/22/2022 Negative Ketones, Urine 05/22/2022 Negative Specific [place], Ur 05/22/2022 1.010 Hemoglobin/Blood,Ur 05/22/2022 3+ (A) [...] 05/22/2022 Small (A) COLOR UA (POCT) 05/22/2022 [place] CLARITY UA (POCT) 05/22/2022 Clear Appointment on [...] Results Only on 04/22/2022 Component Date Value E Learning Developer 04/22/2022 Value:Provider UMBEL your patient EREN MERCHANT has not started their Laila program, time [...] Past Histories independently gathered by the clinical lab support technician and the remaining scribed note accurately describes [...] PM. Susana Bhardwaj Ma documented in this encounterAdena Regional Medical Center02-01-2023 History of Present illness Narrative* John Mg MD - 06/17/2022 9:08 PM EST Order for consult to urology documented in this encounterAdena Regional Medical Center01-27-2023 Miscellaneous Notes* Telephone Encounter - Juwan Land APRN.CNP - 06/12/2022 10:43 AM EST The following approved medication requests have been transmitted electronically. Requested Prescriptions Pending Prescriptions Disp Refills levothyroxine (SYNTHROID) 100 mcg tablet 90 tablet 3 Sig: Take 1 tablet by mouth once daily. Take on empty stomach Juwan Land APRN.CNP * Telephone Encounter - Mariam Woods LPN - 06/12/2022 9:57 AM EST Patient phones requesting refills as follows: Requested Prescriptions Pending Prescriptions Disp Refills levothyroxine (SYNTHROID) 100 mcg tablet 90 tablet 3 Sig: Take 1 tablet by mouth once daily. Take on empty stomach AMAN-12/19/21 Labs-05/23/22 NOV-06/22/22 Med filled 06/16/21 Please review and advise. Mariam Woods LPN documented in this encounterAdena Regional Medical Center01-24-2023 History of Present illness Narrative* Cara Connors RT(R) - 06/09/2022 10:00 AM EST Radiology Service Progress Note DATE OF SERVICE: [...] creatinine assay has traceable calibration to isotope dilution- mass spectrometry. Refer to KDIGO guidelines for clinical interpretation. In patients with unstable renal function, e.g. those with acute kidney injury, the eGFRmay not accurately reflect actual GFR. eGFR- Date Value Ref Range Status 06/10/2021 >60 Final P.O.C.T. RESULTS: POC done: Yes, See Lab Tab June 09, 2022 TREATMENT: N/A PERIPHERAL IV DATA: Ambulatory: A peripheral IV was started in the Left antecubital site with a Angio cath: 22 gauge. RADIOLOGY DEPARTMENT: CT; Exam(s) Completed: urogram SIGNATURE: RT Jonathon(R) PATIENT NAME: Eren Merchant DATE: June 09, 2022 TIME: 10:34 AM documented in this encounterAdena Regional Medical Center01-13-2023 Miscellaneous Notes* Telephone Encounter - Tonya Coleman - 05/29/2022 10:41 AM EST Patient has been scheduled on 09/14/2022 for cysto with botox and for 06/09/[address] [employer] [address] urogram. Thank you. Tonya Coleman * Telephone Encounter - Noa Schmidt RN - 05/29/2022 10:26 AM EST Phone call placed to patient to schedule cystoscopy with possible Botox injection. First available at [place] is 09/14 at 8:30, patient accepts. She declined sooner appt at another location. PSS- please schedule the cystoscopy and assist with scheduling CT Urogram (also ordered). Referral placed. She states her hematuria has resolved since taking antibiotic for UTI and she is starting to feel better. documented in this encounterAdena Regional Medical Center01-10-2023 Miscellaneous Notes* Telephone Encounter - German Grubbs APRN.CNP - 05/26/2022 9:35 AM EST Left message for patient regarding urine culture results indicating a UTI. Bactrim sent to pharmacy. German Grubbs APRN.SAMIR documented in this encounterAdena Regional Medical Center01-06-2023 Instructions* Patient Instructions* Lacy Ruiz RN - 05/22/2022 3:06 PM EST URODYNAMICS [...] PHYSICIAN CONTACT INFORMATION Dr. Chavarria Dr. Zaragoza ([place]) Dr. Constantino Dr. Cerda Dr. Brumfield Dr. Mcqueen Dr. Vargas Dr. Mg Teri Roberts, EMPLOYMENT SERVICES DIRECTOR German Grubbs, EMPLOYMENT SERVICES DIRECTOR Lala Ruiz, EMPLOYMENT SERVICES DIRECTOR Lucina Estrada, EMPLOYMENT SERVICES DIRECTOR After 4:30 pm or on holidays or weekends, call: or [phone]. Ask the machine operator helper to page the BAG FILLER MACHINE OPERATOR electrification adviser.' [facility] [place] Patients ONLY: After 4:30 PM or on holidays or weekends, call and you will be connected to the answering service/physician electrification adviser. Please DO NOT use Huiyuanhart for procedure concerns. documented in this encounterAdena Regional Medical Center01-06-2023 History of Present illness Narrative* Lacy Ruiz RN - 05/22/2022 2:30 PM EST URODYNAMICS Procedure cancelled by Dr. Mg. Pt with gross hematuria. documented in this encounterAdena Regional Medical Center12-06-2022 Miscellaneous Notes* Telephone Encounter - Eugenia Amaro RN - 04/21/2022 7:40 AM EST Last office visit: 01/08/21 Future office visit: 05/22/22 Pharmacy calls in requesting the following refill(s): Requested Prescriptions Pending Prescriptions Disp Refills nystatin (MYCOSTATIN) 100,000 unit/mL suspension 600 mL 0 Sig: Take 5 mL by mouth four times daily. Swish and swallow (5 mL) 4 times per day. Eugenia Amaro RN documented in this encounterAdena Regional Medical Center12-02-2022 History of Present illness Narrative* Karen Alcantara MD - 04/17/2022 2:45 PM EST . [facility] [place] Note Patient name: Eren Merchant PCP: Priyanka Smith MD CC: NSIP HPI: Eren Merchant 62 year old female never smoker with [...] x 1.64 cm groundglass opacity in her leftupper lobe. She was treated with a burst of prednisone and repeat imaging showed resolution of her g roundglass opacity. Due to this, her CellCept was increased to 1500 mg a day. She has been doing well with the increase CellCept. No significant diarrhea, tachycardia, lower extremity edema. Back down to her 10 mg of prednisone. No respiratory issues, specifically chest pain, cough, wheezing or shortness of breath. 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 If she continues to do well withrecommend decreasing her prednisone to 5 mg a day -Repeat CT chest 6 months 2. High risk medication use -Laboratory testing pending on higher dose CellCept -Monitor for superimposed infection Karen Alcantara MD [facility] [place] documented in this encounterAdena Regional Medical Center11-21-2022 History of Present illness Narrative* Cara Connors, RT(R) - 2022 1:20 PM EST Radiology Service Progress Note PATIENT NAME: Eren Merchant DATE OF SERVICE: 2022 TIME: 4:09 PM PATIENT IDENTITY VERIFICATION COMPLETED USING TWO (2) IDENTIFIERS: Name and Date of confirmedby patient verbally. FALL SCREENING: Has the patient [...] Jonathon(R) 2022 4:09 PM documented in this encounterAdena Regional Medical Center11-18-2022 Miscellaneous Notes* Telephone Encounter - Mariam Woods LPN - 04/03/2022 2:24 PM EST Patient notified of results, verbalizes understanding of instructions. Mariam Woods LPN * Telephone Encounter - Cleo Stevens APRN.SAMIR - 04/03/2022 1:47 PM EST Please inform patient that urine culture was negative. Can discontinue antibiotic. Follow up with primary care provider as patient had blood in urine. documented in this encounterAdena Regional Medical Center11-17-2022 History of Present illness Narrative* Genie Olson APRN.SAMIR - 04/02/2022 8:41 AM EST CC: Patient presents with: Urinary Frequency: With burning x2.5 weeks, already previously treated with Bactrim 03/17 HPI Eren Merchant is a 61 year old female who presents with complaint of possible UTI. These symptomshave been present for since mar 16 days. 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 Genie Olson APRN.EMPLOYMENT SERVICES DIRECTOR documented in this encounterAdena Regional Medical Center11-16-2022 Miscellaneous Notes* Telephone Encounter - Kiki Patel RN - 04/01/2022 10:07 AM EST Last annual with CP 11/26/21. Requested Prescriptions Pending Prescriptions Disp Refills estradiol (ESTRACE) 0.01 % (0.1 mg/gram) vaginal cream 42.5 g 1 Sig: Use 1 g vaginally two times a week. RX INSTRUCTIONS: Mychart request. Kiki Patel RN documented in this encounterAdena Regional Medical Center11-14-2022 Miscellaneous Notes* Telephone Encounter - Tonya Coleman - 03/30/2022 9:06 AM EST Patient has been scheduled on 05/22/2022 at 2:30p for UDS and 3:30p for follow up with Dr. Mg. Thank you. Tonya Coleman * Telephone Encounter - Noa Schmidt RN - 03/27/2022 3:43 PM EST Patient ID'd by name and . Discussed order for UDS. Patient accepted appointment on 05/22/22 at 2:[address] [place] [facility]. PSS- please schedule documented in this encounterAdena Regional Medical Center11-07-2022 Miscellaneous Notes* Telephone Encounter - Tariq Brooks APRN.CNP - 03/23/2022 11:27 AM EST Patient with urine culture positive for >=100,000 CFU/ml Escherichia coli and 50,000-<100,000CFU/ml Proteus mirabilis, susceptible to bactrim. Medications and allergies reviewed. Treatment sent to pharmacy. The following approved medication requests have been transmitted electronically. Requested Prescriptions Signed Prescriptions Disp Refills sulfamethoxazole-trimethoprim (BACTRIM DS) 800-160 mg per tablet 6 tablet 0 Sig: Take 1 tablet by mouth twice daily for 3 days. Authorizing Provider: TARIQ BROOKS APRN.CNP documented in this encounterAdena Regional Medical Center11-02-2022 Miscellaneous Notes* Telephone Encounter - Eugenia Amaro RN - 03/18/2022 11:40 AM EDT Pt is scheduled and placed on wait list Eugenia Amaro RN * Telephone Encounter - Tia Valdovinos - 03/06/2022 2:15 PM EDT Patient wants to make follow up but there is nothing available thru the end of the year. documented in this encounterAdena Regional Medical Center10-31-2022 Instructions* Patient Instructions* John Mg MD - 03/16/2022 11:34 AM [...] you are in doubt, please call your doctorand ask. Continue taking all other medications which [...] UROGYNECOLOGY PHYSICIAN CONTACT INFORMATION Dr. John Mg ([facility] Dr. John Mg ([facility]) Dr. Viji Zaragoza ([facility]) Dr. Ana Cerda Dr. Chelita Ramirez Dr. Shannen Mcqueen Dr. Yelena Vargas [phone] Dr. John Mg Teri Roberts, EMPLOYMENT SERVICES DIRECTOR Lala Ruiz, EMPLOYMENT SERVICES DIRECTOR Lucina Estrada, SAMIR After 4:30 pm or on holidays or weekends, call: or . Ask the machine operator helper to page the BAG FILLER MACHINE OPERATOR electrification adviser.' Please DO NOT use MyChart for post-surgery concerns. documented in this encounterAdena Regional Medical Center10-31-2022 History of Present illness Narrative* John Mg MD - 03/16/2022 9:00 AM EDT Images from the original note were not included. Female Pelvic Medicine & Reconstructive Surgery Consult CHIEF COMPLAINT: Eren Merchant is a 61 year old ( x2) female s/p colon resection for diverticulitis and colon cancer who presents for consultation requested by Charis Lopez CNM for an opinion regarding cystocele, [...] have a BM, blood in stool, Last colonoscopy(2017): has history of colon cancer Sexual activity: [...] denies anxiety, depression Medical and Symptom History: BAG FILLER MACHINE OPERATOR HISTORY: Last Pap: Date:2018, normal; Last Mammogram: [...] have or complete a bowel movement? Yes, notat all bothersome (1) Usually experience a feeling [...] following usually affect your: Bladder or urine Bowelor rectum Vagina or pelvis 1. Ability to do rn endocrinology (cooking, housecleaning, laundry) somewhat Not at all [...] UNI/BI Tubal ligation LX PARTIAL COLECTOMY [facility] lap lysis of adhesions, left oopherectomy, right salpinoopherectomy, left salpingectomy, redo lap sigmoid colectomy w/ressection, lap mobilization of splenic flexure, lap appendectomy PAST SURGICAL HISTORY OF 10/2008 T9-L1 fusion, Dr. 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 predniSONE (DELTASONE) 20 mg tablet [...] ROS obtained by others. John Mg MD Drag Seiner offered: Patient declines. OBJECTIVE: BP 108/74 Wt [...] Post Wall - Normal support Cervix / [place] - Normal support POP-Q: Prolapse Noted: No [...] Nurse performed and PVR 0 mL IMPRESSION: Eren Merchant is a 61 year old ( x2) [...] effects including dry eye, dry mouth, constipation, urinaryretention and sometimes confusion in elderly patients. We [...] wears off). She also understands that She willneed re-injection Approximately every 6-12 months. We also discussed neuromodulation. InterStim is used to manage both OAB with leak and fecal incontinence. Discussed that Interstim is now MRI-compatible although she would need to turn off device when she had MRI. Also discussed the need for two anesthetic procedures in the OR. Finally we discussedPTNS, which would require 12 weekly, 30 minute treatments. Finally we discussed PTNS, which would require 12 weekly, 30 minute treatments. The risks, benefitsand alternatives, including site pain, treatment failure , [...] Bladder Outlet Obstruction, Sleeping disorders such as obstr uctive sleep apnea (breathing is interrupted or stops [...] from drinking fluids overnight or within 3 hoursof bedtime, lower extremity elevation and/or compression hose [...] factors for recurrent UTI: female urethral anatomy, post- menopausal status, sexualintercourse, stress, travel. - Discussed important strategies for management of recurrent UTIs: -- Treatment / care with only one provider -- Never take antibiotics without first getting a urine culture -- Recommend standing urine culture order to facilitate submitting urine cultures and avoid barrierof needing to obtain an office appointment -- [...] mail. John Mg MD documented in this encounterAdena Regional Medical Center10-19-2022 Miscellaneous Notes* Telephone Encounter - Eugenia Amaro RN - 03/04/2022 10:34 AM EDT Last office visit: 01/08/21 Per last refill [...] day. Eugenia Amaro RN documented in this encounterAdena Regional Medical Center10-10-2022 History of Present illness Narrative* Cecy Vigil APRN.CNP - 02/23/2022 3:16 PM EDT Heart, Vascular & Thoracic [place] Department of Thoracic Surgery TELEPHONE VISIT (audio only) PROGRESS NOTE This is a telephone encounter initiated for an established patient. The patient, parent or guardianis not originating from a related Evaluation & Management service provided within the previous 7 days nor leading to an Evaluation & Management service or procedure within the next 24 hours or soonest available appointment. Eren Javier Merchant has consented to this telephone encounter. Persons Present: patient Total Time Spent: 11-20 minutes Cecy Vigil APRN.CNP [facility] - OUTPATIENT THORACIC SURGERY CLINIC NOTE PT NAME: Eren Merchant [facility] NO: [id number] THORACIC SURGEON: Bar Ferrer M.D. 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 Since that time, she has had problems with weight loss as well asdevelopment of an interstitial process, which has ultimately [...] in the anterior mediastinum INTERVAL HISTORY: Ms. Merchant returns following a CT scan of her chest. Denies any progressive dyspnea, hemoptysis, wheezing, bone pain, weight loss or smoking. Does have a chronic non-productive cough. CT Chest shows a new groundglass opacity in the medial left upper lobe, which is being monitored bypulmonary. She may return as needed. Pulmonary to manage. Patients states understanding and all questions were answered to satisfaction; will call if new or worsening symptoms occur or if any additional questions arise. IMPRESSION: 61 year old female s/p Right VATS biopsy of upper, middle and lower lung with Dr Niño for chronic interstitial pneumonitis.ROSA. PLAN: - Return as needed - Pulmonary to manage, Dr. Quinton Vigil APRN.EMPLOYMENT SERVICES DIRECTOR documented in this encounterAdena [facility]10-03-2022 Instructions* Patient Instructions* Karen Alcantara MD - 02/16/2022 10:19 AM EDT BONE MINERAL DENSITY PATIENT INSTRUCTIONS Bone mineral density testing measures the amount of calcium in certain parts of your bones. This information determines how strong your bones are. The test is used to detect osteoporosis, a disease in which the bone's mineral content and density are low, increasing a person's risk of fractures. Thelumbar spine (lower back) and the hip are [...] your usual activities immediately. documented in this encounterAdena Regional Medical Center10-03-2022 History of Present illness Narrative* Karen Alcantara MD - 02/16/2022 9:30 AM EDT Images from the original note were not included. . [facility] [place] Note Patient name: Eren Merchant PCP: Priyanka Smith MD CC: ILD HPI: Eren Merchant 61 year old obese female never smoker with PMH significant for GERD, h/o thymoma, hyothyroidism, ILD/NSIP. Originally diagnosed in 2019. At that time she had lab testing that wassuggestive of vasculitis (MPO p-ANCA) but her chest CT was not consistent (peribronchovascular GGO and central traction bronchiectasis). Her case was presented at the [place] ILD conference and the questio n of CTD associated ILD was entertained. She had a VATS lung biopsy with pathology showing cellularNSIP, no honeycombing or UIP. ILD Conference consensus [...] Abs Lymph 1.00 - 4.00 k/uL 3.73 Gregory% % 8.0 Abs Gregory <0.87 k/uL 0.89 High Eosin% % 0.0 [...] DATE OF EXAM: Feb 12 2022 8:17AM [facility] 0541 - CT CHEST WO IVCON [...] optimized for coronary assessment. No pericardial effusion orthickening. Bones and soft tissues: No destructive bone lesion. Unchanged compression deformity of the superiorendplate of T11. Chest wall is unremarkable. Upper abdomen: No acute abnormality in the imaged upper abdomen. 4 mm calculus in upper pole of theleft kidney. Frog Catcher (topogram) images: No additional findings. IMPRESSION: 1. [...] 08/05/2017 Added automatically from request for surgery [id number] Rectal bleed 09/05/14 Thymoma Resected 07/14/17, Masaoka [...] UNI/BI Tubal ligation LX PARTIAL COLECTOMY 12[facility]23[facility] lap lysis of adhesions, left oopherectomy, [...] typical for aspiration Screening for osteoporosis -On alf steroids without baseline bone density -Check bone density -Should take supplemental calcium and Vit D 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 manager use of oral steroids -See #1 and # 3 assisted use of immunosuppressive drug -Liver panel and absolute lymphocyte and neutrophil count normal -Refilled Cellcept. May need to increase to 1500 mg I spent a total of 50 minutes on the date of the service which included preparing to see the patient, ozss-us-hmar patient care, completing clinical documentation, obtaining and/or reviewing separately obtained history, performing a medically appropriate examination, ordering medications, tests, or procedures, and independently interpreting results (not separately reported). Karen Alcantara MD [facility] [place] documented in this encounterAdena Regional Medical Center09-30-2022 Miscellaneous Notes* Telephone Encounter - Noa Gerard - 02/13/2022 10:09 AM EDT Reason for call: Mrs. Merchant would like to schedule a f/u appointment with Dr. Ferrer. Home and cell number [phone] Diagnosis Malignant neoplasm of thymus (HCC) Best regards, Noa documented in this encounterAdena Regional Medical Center08-11-2022 Miscellaneous Notes* Telephone Encounter - Kiki Patel RN - 12/25/2021 8:24 AM EDT Duplicate message. See other mychart message. Kiki Patel RN documented in this encounterAdena Regional Medical Center08-08-2022 History of Present illness Narrative* Clementina Zaldivar LPN - 12/22/2021 10:07 AM EDT Patient presents for COVID booster. Denies any problems at this time. Tolerated injection well. Clementina Zaldivar LPN documented in this encounterAdena Regional Medical Center08-05-2022 History of Present illness Narrative* Priyanka Smith MD - 12/19/2021 9:20 AM EDT 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 Patient presents with: F/U 6 Month HPI Eren Merchant is a 61 year old female who presents here today for 6 month follow up. Pt here today for a 6 month follow up. Reports today is a good day. Going to [place]. No bowel, Gi, or urinary issues. Does follow with Urologist Dr. Yang for OAB. Follows with STOCKROOM SUPERVISOR. Did have recent US imaging due to a cystocele. Taking Myrbetriq 50 mg daily and estrace 0.01%. Hasissues with constipation, eating prunes or cherries to [...] this time. No longer coughing. Will be followin g with Dr. Alcantara. Tremors: Notes continued R hand tremor, not [...] follows with Dr. Ferrer, Thoracic Surgeon and THERMOSTATIC CONTROLS SUPERVISOR for malignant neoplasm of thymus and chronic [...] 08/05/2017 Added automatically from request for surgery [id number] Rectal bleed 09/05/14 Thymoma Resected 07/14/17, Masaoka [...] UNI/BI Tubal ligation LX PARTIAL COLECTOMY 12[facility]23[facility] lap lysis of adhesions, left oopherectomy, [...] on 04/29/2020 COVID-19 VACCINE(3 - Booster for Inna series) due on 06/02/2021 SHINGRIX VACCINE(2 of [...] Lymph% 12/04/2021 33.4 Abs Lymph 12/04/2021 3.73 Gregory% 12/04/2021 8.0 Abs Gregory 12/04/2021 0.89 (A) Eosin% 12/04/2021 0.0 Abs [...] Past Histories independently gathered by the clinical lab support technician and the remaining scribed note accurately describes [...] AM. Tess Persaud Ma documented in this encounterAdena Regional Medical Center07-29-2022 Miscellaneous Notes* Telephone Encounter - Citlaly Amaya RN - 12/12/2021 1:30 PM EDT Patient phones requesting refills as follows: Pending Prescriptions Disp Refills PREDNISONE 10 MG TABLET Sig: Take 1 tablet by mouth once daily. ARIANA: No Please review and advise. Former patient of Dr. Cuenca. She has an appointment to establish with Dr. Alcantara on 02/16/22. Citlaly Amaya RN documented in this encounterAdena Regional Medical Center07-18-2022 History of Present illness Narrative* RT Vidal(R) - 12/01/2021 11:30 AM EDT Radiology Service Progress Note PATIENT NAME: Eren Merchant DATE OF SERVICE: December 01, 2021 TIME: 1:42 PM PATIENT IDENTITY VERIFICATION COMPLETED USING TWO (2) IDENTIFIERS: Name and Date of confirmedby patient verbally. FALL SCREENING: Has the patient [...] 01, 2021 1:42 PM documented in this encounterAdena Regional Medical Center07-13-2022 Miscellaneous Notes* Telephone Encounter - Reagan Vigil Ma - 11/26/2021 9:38 AM EDT Pharmacy called requesting the following refill. Pending Prescriptions Disp Refills MYRBETRIQ 50 MG TABLET,EXTENDED RELEASE 30 tablet 11 Sig: Take 1 tablet by mouth once daily. ARIANA: Yes Patient last appointment: Visit date not found Patient Phone numbers: [phone] (home) Request is for script(s) to be escript to pharmacy. Reagan Vigil Ma documented in this encounterAdena Regional Medical Center07-13-2022 History of Present illness Narrative* Charis Lopez APRN.CNM - 11/26/2021 9:34 AM EDT Eren is a 61 year old who presents for an annual gynecologic exam with complaints, Urinaryurgency. Postmenopausal: Yes, since 2010 HRT use: No. Last Pap: 08/30/2018 normal HPV: 08/25/2018 negative History of abnormal pap: Yes Last mammogram: 2016 normal History of abnormal mammogram: No Sexually active: Yes Patient concerns for STD exposure: No. Pain with intercourse: Yes Hot flashes: No Night sweats: No Vaginal dryness: Yes, and irritation at times OB History T2 L2 SAB0 IAB0 Ectopic0 Multiple0 Live Births0 Comment: 2 vaginal deliveries Crm Coordinator History LMP: 01/07/2011, Postmenopausal Age at Menarche: Age at First : Age at Menopause: Crm Coordinator History Comments: Sexual Activity: Yes; Male Contraception: [...] 08/05/2017 Added automatically from request for surgery [id number] Rectal bleed 09/05/14 Thymoma Resected 07/14/17, Masaoka [...] UNI/BI Tubal ligation LX PARTIAL COLECTOMY [facility] lap lysis of adhesions, left oopherectomy, right salpinoopherectomy, left salpingectomy, redo lap sigmoid colectomy w/ressection, lap mobilization of splenic flexure, lap appendectomy PAST SURGICAL HISTORY OF 10/2008 T9-L1 fusion, Dr. Lemon PAST SURGICAL HISTORY OF 10/24/2009 Removed T9-L1, 2 rods and 8 screws, Dr Lemon PAST SURGICAL HISTORY OF 11/2018 Hysteroscopy with D&C and Polypectomy with [employer] and [employer] Truclear device PICC LINE INSERT/CONSULT 07/11/2018 THYMECTOMY [...] external genitalia normal, normal Bartholin's glands, urethra, [place]'s glands, no vulvar lesions, no cervical lesions, normal appearing perineal body and perianal region. Cystocele midline. Atrophic changes noted BIMANUAL: uterus normal size, shape and consistency, no adnexal masses, non- tender and no cervical motion tenderness RECTOVAGINAL: deferred. [...] V76.12, ICD10: Z12.31 - CHYNA SCREENING W JENN- order placed 4. Urinary urgency - ICD9: 788.63, ICD10: R39.15 - Recent treatment for UTI - Urine dip - negative other than moderate blood 5. Urinary frequency - ICD9: 788.41, ICD10: R35.0 6. Vaginal atrophy - Estrace cream daily to vagina Will notify patient of results and follow up after URO/BAG FILLER MACHINE OPERATOR consult Charis Lopez APRN.CNM documented in this encounterAdena Regional Medical Center07-05-2022 Miscellaneous Notes* Telephone Encounter - Priyanka Smith MD - 11/18/2021 4:44 PM EDT Order filed Priyanka Smith MD * Telephone Encounter - Clementina Zaldivar LPN - 11/18/2021 3:26 PM EDT Patient scheduled for nurse visit 12/04/21 to receive Shingrix vaccine. Please place order at this time. Clementina Zaldivar LPN documented in this encounterAdena Regional Medical Center06-22-2022 Instructions* Patient Instructions* Cleo Maynard APRN.CNM - 11/05/2021 9:50 AM [...] 6-8 full glasses daily) both to treat andprevent future UTIs. Cranberry juice (but not the [...] of time-try to urinate every 3-4 hours whileawake. -urinate immediately after sexual intercourse to get rid of the bacteria that are pushed up into the bladder during intercourse. -if you use a diaphragm and spermicide, you are at a higher risk of UTI. -wear cotton underwear and avoid tight-fitting clothing. documented in this encounterAdena Regional Medical Center06-22-2022 History of Present illness Narrative* Cleo Maynard APRN.CNM - 11/05/2021 9:22 AM EDT Eren Merchant is a 61 year old female who presents for problem visit for urinary urgency. HPI: Overactive bladder, getting up every 1-2 hours with urination at night. During the day will goevery 1-2 hours as well. Has to make sure a bathroom is close by. If she feels the urgency she goesor goes in preparation for going somewhere. 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 GERD (gastroesophageal reflux disease) 10/01/2017 Hives Intramural leiomyoma of uterus Malnutrition of moderate degree ([facility]) 06/15/2018 Obesity, Class I, BMI 30-34.9 E66.9 09/03/2017 Primary osteoarthritis of first carpometacarpal joint of right hand 08/05/2017 Added automatically from request for surgery [id number] Rectal bleed 09/05/14 Thymoma Resected 07/14/17, Masaoka [...] UNI/BI Tubal ligation LX PARTIAL COLECTOMY 12[facility] lap lysis of adhesions, left oopherectomy, right salpinoopherectomy, left salpingectomy, redo lap sigmoid colectomy w/ressection, lap mobilization of splenic flexure, lap appendectomy PAST SURGICAL HISTORY OF 10/2008 T9-L1 fusion, Dr. Lemon PAST SURGICAL HISTORY OF 10/24/2009 Removed T9-L1, 2 rods and 8 screws, Dr Lemon PAST SURGICAL HISTORY OF 11/2018 Hysteroscopy with D&C and Polypectomy with [employer] and [employer] Truclear device PICC LINE INSERT/CONSULT 07/11/2018 THYMECTOMY [...] discuss Cleo Maynard APRN.CNM documented in this encounterAdena Regional Medical Center04-04-2022 History of Present illness Narrative* Gumaro Cuenca MD - 08/18/2021 11:53 AM EDT [facility] [place], 08/12/2021: Name: Eren Merchant : 1960 INTERVAL HISTORY: No cough, purulent [...] Adult) Pulse 94 Ht 161.3 cm (5' 3.5) Wt 77.1 kg (170 lb) LMP 01/07/2011 [...] I am retiring from the staff of [facility] and the [facility] on November 13, 2021, after 41 years of service to my patients. It has been my privilege to provide you with Pulmonary consultation and care for the time we have known each other. Please feel confident that my colleagues are well equipped to provide ongoing care in the future: Rafael Alcantara MD and Gerri Cruz PA-C. Roman Stroud MD. Gumaro Cuenca MD, [facility] [place] [facility] [address] [place] [id number] P: [phone] F: [phone] [email or web address] documented in this encounterAdena Regional Medical Center03-29-2022 Instructions* Patient Instructions* Gumaro Cuenca MD - 08/12/2021 2:12 PM [...] I am retiring from the staff of [facility] and the [facility] on November 13, 2021, after 41 years of service to my patients. It has been my privilege to provide you with Pulmonary consultation and care for the time we have known each other. Please feel confident that my colleagues are well equipped to provide ongoing care in the future: Rafael Alcantara MD and Gerri Cruz PA-C. Roman Stroud MD. Gumaro Cuenca MD, [facility] [place] [facility] [address] [place] [id number] P: [phone] F: [phone] [email or web address] documented in this encounterAdena Regional Medical Center03-29-2022 History of Present illness Narrative* Ernestina Tavarez RRT - 08/12/2021 1:31 PM EDT PULM FUNCTION SMARTBLOCK: Provider: Gumaro Cuenca MD Assisting Tech: Ernestina Tavarez RRT Spirometry: 1 System: [id number] documented in this encounterAdena Regional Medical Center03-23-2022 Miscellaneous Notes* Telephone Encounter - Juwan Land APRN.CNP - 08/06/2021 11:15 AM EDT The following approved medication requests have been transmitted electronically. Signed Prescriptions Disp Refills omeprazole (PRILOSEC) 20 mg capsule 90 capsule 3 Sig: Take 1 capsule by mouth daily before breakfast. 1/2 hr before meal. ARIANA: No Juwan Land APRN.CNP * Telephone Encounter - Karen Soler Ma - 08/06/2021 10:50 AM EDT Patient last visit with PCP 06/18/21 Follow up appointment scheduled 12/19/21 Karen Soler Ma documented in this encounterAdena Regional Medical Center02-10-2021 History of Present illness Narrative* Sakshi SuazoRt)Yessy - 06/26/2020 3:40 PM EST Radiology Service Progress Note PATIENT NAME: Eren Merchant DATE OF SERVICE: June 26, 2020 TIME: 3:42 PM PATIENT IDENTITY VERIFICATION COMPLETED USING TWO (2) IDENTIFIERS: Name and Date of confirmedby patient verbally. FALL SCREENING: Has the patient had 2 falls in the last year or 1 fall with injury or currently using an Ambulatory Assistive Device (Walker, Cane, Wheelchair, Crutches, etc.)? No PATIENT GENDER DATA: Female. status: : No status: NO. PATIENT RELEVANT IMPLANT DATA REVIEWED: Not Applicable RADIOLOGY DEPARTMENT: General X-ray: Exam(s) Completed: Lower Extremity X- Ray(s): Ankle, Right: PERIPHERAL IV DATA: Not applicable SIGNED BY: RT Cinthya June 26, 2020 3:42 PM documented in this encounterAdena Regional Medical Center09-28-2020 History of Past illness Narrative* Problem Noted [...] Overview: Added automatically from request for surgery [id number] Open wound(s) (multiple) of unspecified site(s), without [...] of this encounter (statuses as of 06/22/2023) [facility] of Past illness Narrative* Problem Noted [...] Overview: Added automatically from request for surgery [id number] Open wound(s) (multiple) of unspecified site(s), without [...] of this encounter (statuses as of 08/09/2023) [facility] of [facility] Narrative* Problem Noted [...] Overview: Added automatically from request for surgery [id number] Open wound(s) (multiple) of unspecified site(s), without [...] of this encounter (statuses as of 08/09/2023) [facility] Narrative* Problem Noted [...] Overview: Added automatically from request for surgery [id number] Open wound(s) (multiple) of unspecified site(s), without [...] of this encounter (statuses as of 08/19/2023) [facility] Narrative* Problem Noted [...] Overview: Added automatically from request for surgery [id number] Open wound(s) (multiple) of unspecified site(s), without [...] of this encounter (statuses as of 08/21/2023) [facility] Narrative* Problem Noted [...] Overview: Added automatically from request for surgery [id number] Open wound(s) (multiple) of unspecified site(s), without [...] of this encounter (statuses as of 08/28/2023) [facility] Narrative* Problem Noted [...] Overview: Added automatically from request for surgery [id number] Open wound(s) (multiple) of unspecified site(s), without [...] of this encounter (statuses as of 09/02/2023) [facility] Narrative* Problem Noted [...] Overview: Added automatically from request for surgery [id number] Open wound(s) (multiple) of unspecified site(s), without [...] of this encounter (statuses as of 09/02/2023) [facility] Narrative* Problem Noted [...] Overview: Added automatically from request for surgery [id number] Open wound(s) (multiple) of unspecified site(s), without [...] of this encounter (statuses as of 08/06/2021) [facility] Narrative* Problem Noted [...] Overview: Added automatically from request for surgery [id number] Open wound(s) (multiple) of unspecified site(s), without [...] of this encounter (statuses as of 08/12/2021) [facility] Narrative* Problem Noted [...] Overview: Added automatically from request for surgery [id number] Open wound(s) (multiple) of unspecified site(s), without [...] of this encounter (statuses as of 08/18/2021) [facility] Narrative* Problem Noted [...] Overview: Added automatically from request for surgery [id number] Open wound(s) (multiple) of unspecified site(s), without [...] of this encounter (statuses as of 11/05/2021) [facility] Narrative* Problem Noted [...] Overview: Added automatically from request for surgery [id number] Open wound(s) (multiple) of unspecified site(s), without [...] of this encounter (statuses as of 11/19/2021) [facility] Narrative* Problem Noted [...] Overview: Added automatically from request for surgery [id number] Open wound(s) (multiple) of unspecified site(s), without [...] of this encounter (statuses as of 11/26/2021) [facility] Narrative* Problem Noted [...] Overview: Added automatically from request for surgery [id number] Open wound(s) (multiple) of unspecified site(s), without [...] of this encounter (statuses as of 11/26/2021) [facility] Narrative* Problem Noted [...] Overview: Added automatically from request for surgery [id number] Open wound(s) (multiple) of unspecified site(s), without [...] of this encounter (statuses as of 12/02/2021) [facility] Narrative* Problem Noted [...] Overview: Added automatically from request for surgery [id number] Open wound(s) (multiple) of unspecified site(s), without [...] of this encounter (statuses as of 12/12/2021) [facility] Narrative* Problem Noted [...] Overview: Added automatically from request for surgery [id number] Open wound(s) (multiple) of unspecified site(s), without [...] of this encounter (statuses as of 12/19/2021) [facility] Narrative* Problem Noted [...] Overview: Added automatically from request for surgery [id number] Open wound(s) (multiple) of unspecified site(s), without [...] of this encounter (statuses as of 12/22/2021) [facility] Narrative* Problem Noted [...] Overview: Added automatically from request for surgery [id number] Open wound(s) (multiple) of unspecified site(s), without [...] of this encounter (statuses as of 12/25/2021) [facility] Narrative* Problem Noted [...] Overview: Added automatically from request for surgery [id number] Open wound(s) (multiple) of unspecified site(s), without [...] of this encounter (statuses as of 02/13/2022) [facility] Narrative* Problem Noted [...] Overview: Added automatically from request for surgery [id number] Open wound(s) (multiple) of unspecified site(s), without [...] of this encounter (statuses as of 02/17/2022) [facility] Narrative* Problem Noted [...] Overview: Added automatically from request for surgery [id number] Open wound(s) (multiple) of unspecified site(s), without [...] of this encounter (statuses as of 02/20/2022) [facility] Narrative* Problem Noted [...] Overview: Added automatically from request for surgery [id number] Open wound(s) (multiple) of unspecified site(s), without [...] of this encounter (statuses as of 02/20/2022) [facility]ative* Problem Noted [...] Overview: Added automatically from request for surgery [id number] Open wound(s) (multiple) of unspecified site(s), without [...] of this encounter (statuses as of 02/23/2022) [facility] Narrative* Problem Noted [...] Overview: Added automatically from request for surgery [id number] Open wound(s) (multiple) of unspecified site(s), without [...] of this encounter (statuses as of 02/23/2022) [facility]* Problem Noted [...] Overview: Added automatically from request for surgery [id number] Open wound(s) (multiple) of unspecified site(s), without [...] of this encounter (statuses as of 03/04/2022) [facility] Narrative* Problem Noted [...] Overview: Added automatically from request for surgery [id number] Open wound(s) (multiple) of unspecified site(s), without [...] of this encounter (statuses as of 03/18/2022) [facility] Narrative* Problem Noted [...] Overview: Added automatically from request for surgery [id number] Open wound(s) (multiple) of unspecified site(s), without [...] of this encounter (statuses as of 03/23/2022) [facility] Narrative* Problem Noted [...] Overview: Added automatically from request for surgery [id number] Open wound(s) (multiple) of unspecified site(s), without [...] of this encounter (statuses as of 03/25/2022) [facility] History of Past illness Narrative* Problem Noted [...] Overview: Added automatically from request for surgery [id number] Open wound(s) (multiple) of unspecified site(s), without [...] of this encounter (statuses as of 03/25/2022) [facility] History of Past illness Narrative* Problem Noted [...] Overview: Added automatically from request for surgery [id number] Open wound(s) (multiple) of unspecified site(s), without [...] of this encounter (statuses as of 03/30/2022) [facility] History of Past illness Narrative* Problem Noted [...] Overview: Added automatically from request for surgery [id number] Open wound(s) (multiple) of unspecified site(s), without [...] of this encounter (statuses as of 04/01/2022) [facility] History of Past illness Narrative* Problem Noted [...] Overview: Added automatically from request for surgery [id number] Open wound(s) (multiple) of unspecified site(s), without [...] of this encounter (statuses as of 04/02/2022) [facility] History of Past illness Narrative* Problem Noted [...] Overview: Added automatically from request for surgery [id number] Open wound(s) (multiple) of unspecified site(s), without [...] of this encounter (statuses as of 04/07/2022) [facility] History of Past illness Narrative* Problem Noted [...] Overview: Added automatically from request for surgery [id number] Open wound(s) (multiple) of unspecified site(s), without [...] of this encounter (statuses as of 04/08/2022) [facility] History of Past illness Narrative* Problem Noted [...] Overview: Added automatically from request for surgery [id number] Open wound(s) (multiple) of unspecified site(s), without [...] of this encounter (statuses as of 04/13/2022) [facility] History of Past illness Narrative* Problem Noted [...] Overview: Added automatically from request for surgery [id number] Open wound(s) (multiple) of unspecified site(s), without [...] of this encounter (statuses as of 04/17/2022) [facility] History of Past illness Narrative* Problem Noted [...] Overview: Added automatically from request for surgery [id number] Open wound(s) (multiple) of unspecified site(s), without [...] of this encounter (statuses as of 04/21/2022) [facility] History of Past illness Narrative* Problem Noted [...] Overview: Added automatically from request for surgery [id number] Open wound(s) (multiple) of unspecified site(s), without [...] of this encounter (statuses as of 05/25/2022) [facility] History of Past illness Narrative* Problem Noted [...] Overview: Added automatically from request for surgery [id number] Open wound(s) (multiple) of unspecified site(s), without [...] of this encounter (statuses as of 05/26/2022) [facility] History of Past illness Narrative* Problem Noted [...] Overview: Added automatically from request for surgery [id number] Open wound(s) (multiple) of unspecified site(s), without [...] of this encounter (statuses as of 05/29/2022) [facility] History of Past illness Narrative* Problem Noted [...] Overview: Added automatically from request for surgery [id number] Open wound(s) (multiple) of unspecified site(s), without [...] of this encounter (statuses as of 06/12/2022) [facility] History of Past illness Narrative* Problem Noted [...] Overview: Added automatically from request for surgery [id number] Open wound(s) (multiple) of unspecified site(s), without [...] of this encounter (statuses as of 06/18/2022) [facility] History of Past illness Narrative* Problem Noted [...] Overview: Added automatically from request for surgery [id number] Open wound(s) (multiple) of unspecified site(s), without [...] of this encounter (statuses as of 06/23/2022) [facility] History of Past illness Narrative* Problem Noted [...] Overview: Added automatically from request for surgery [id number] Open wound(s) (multiple) of unspecified site(s), without [...] of this encounter (statuses as of 07/02/2022) [facility] History of Past illness Narrative* Problem Noted [...] Overview: Added automatically from request for surgery [id number] Open wound(s) (multiple) of unspecified site(s), without [...] of this encounter (statuses as of 07/28/2022) [facility] History of Past illness Narrative* Problem Noted [...] Overview: Added automatically from request for surgery [id number] Open wound(s) (multiple) of unspecified site(s), without [...] of this encounter (statuses as of 08/11/2022) [facility] History of Past illness Narrative* Problem Noted [...] Overview: Added automatically from request for surgery [id number] Open wound(s) (multiple) of unspecified site(s), without [...] of this encounter (statuses as of 08/13/2022) [facility] History of Past illness Narrative* Problem Noted [...] Overview: Added automatically from request for surgery [id number] Open wound(s) (multiple) of unspecified site(s), without [...] of this encounter (statuses as of 08/13/2022) [facility] History of Past illness Narrative* Problem Noted [...] Overview: Added automatically from request for surgery [id number] Open wound(s) (multiple) of unspecified site(s), without [...] of this encounter (statuses as of 08/19/2022) [facility] History of Past illness Narrative* Problem Noted [...] Overview: Added automatically from request for surgery [id number] Open wound(s) (multiple) of unspecified site(s), without [...] of this encounter (statuses as of 08/20/2022) [facility] History of Past illness Narrative* Problem Noted [...] Overview: Added automatically from request for surgery [id number] Open wound(s) (multiple) of unspecified site(s), without [...] of this encounter (statuses as of 09/16/2022) [facility] History of Past illness Narrative* Problem Noted [...] Overview: Added automatically from request for surgery [id number] Open wound(s) (multiple) of unspecified site(s), without [...] of this encounter (statuses as of 10/13/2022) [facility] History of Past illness Narrative* Problem Noted [...] Overview: Added automatically from request for surgery [id number] Open wound(s) (multiple) of unspecified site(s), without [...] of this encounter (statuses as of 10/16/2022) [facility] History of Past illness Narrative* Problem Noted [...] Overview: Added automatically from request for surgery [id number] Open wound(s) (multiple) of unspecified site(s), without [...] of this encounter (statuses as of 10/16/2022) [facility] History of Past illness Narrative* Problem Noted [...] Overview: Added automatically from request for surgery [id number] Open wound(s) (multiple) of unspecified site(s), without [...] of this encounter (statuses as of 11/03/2022) [facility] History of Past illness Narrative* Problem Noted [...] Overview: Added automatically from request for surgery [id number] Open wound(s) (multiple) of unspecified site(s), without [...] of this encounter (statuses as of 11/06/2022) [facility] History of Past illness Narrative* Problem Noted [...] Overview: Added automatically from request for surgery [id number] Open wound(s) (multiple) of unspecified site(s), without [...] of this encounter (statuses as of 11/16/2022) [facility] History of Past illness Narrative* Problem Noted [...] Overview: Added automatically from request for surgery [id number] Open wound(s) (multiple) of unspecified site(s), without [...] of this encounter (statuses as of 11/27/2022) [facility] History of Past illness Narrative* Problem Noted [...] Overview: Added automatically from request for surgery [id number] Open wound(s) (multiple) of unspecified site(s), without [...] of this encounter (statuses as of 12/23/2022) [facility] History of Past illness Narrative* Problem Noted [...] Overview: Added automatically from request for surgery [id number] Open wound(s) (multiple) of unspecified site(s), without [...] of this encounter (statuses as of 01/05/2023) [facility] History of Past illness Narrative* Problem Noted [...] Overview: Added automatically from request for surgery [id number] Open wound(s) (multiple) of unspecified site(s), without [...] of this encounter (statuses as of 01/12/2023) [facility] History of Past illness Narrative* Problem Noted [...] Overview: Added automatically from request for surgery [id number] Open wound(s) (multiple) of unspecified site(s), without [...] of this encounter (statuses as of 01/15/2023) [facility] History of Past illness Narrative* Problem Noted [...] Overview: Added automatically from request for surgery [id number] Open wound(s) (multiple) of unspecified site(s), without [...] of this encounter (statuses as of 02/09/2023) [facility] History of Past illness Narrative* Problem Noted [...] Overview: Added automatically from request for surgery [id number] Open wound(s) (multiple) of unspecified site(s), without [...] of this encounter (statuses as of 02/24/2023) [facility] History of Past illness Narrative* Problem Noted [...] Overview: Added automatically from request for surgery [id number] Open wound(s) (multiple) of unspecified site(s), without [...] of this encounter (statuses as of 02/25/2023) [facility] History of Past illness Narrative* Problem Noted [...] Overview: Added automatically from request for surgery [id number] Open wound(s) (multiple) of unspecified site(s), without [...] of this encounter (statuses as of 03/01/2023) [facility] History of Past illness Narrative* Problem Noted [...] Overview: Added automatically from request for surgery [id number] Open wound(s) (multiple) of unspecified site(s), without [...] of this encounter (statuses as of 03/09/2023) [facility] History of Past illness Narrative* Problem Noted [...] Overview: Added automatically from request for surgery [id number] Open wound(s) (multiple) of unspecified site(s), without [...] of this encounter (statuses as of 03/21/2023) [facility] History of Past illness Narrative* Problem Noted [...] Overview: Added automatically from request for surgery [id number] Open wound(s) (multiple) of unspecified site(s), without [...] of this encounter (statuses as of 03/21/2023) [facility] History of Past illness Narrative* Problem Noted [...] Overview: Added automatically from request for surgery [id number] Open wound(s) (multiple) of unspecified site(s), without [...] of this encounter (statuses as of 03/21/2023) [facility] Author Estevan Crowder [facility] Note Date/Time December 22, 2024 1:1 7pm [facility] Medical Records Department [address] [place] [address] Pre-Anesthesia Evaluation 12/22/24 1306 MR#: [id number] Acct: [id number] Name: EREN MERCHANT Rep #:[id number] : 1960 64 From: Estevan Crowder MD PCP: Dr. Gonzalo Day MD Status :REG SDC Y Race: C Location: [place] [address] ASA Classification* ASA Classification ASA Classification: 3 Assessment & Plan Anesthesia* Anesthesia Assessment Anesthesia Assessment: Discussed sedation and/or anesthesia options, risks, benefits, and alternatives with patient/parents/legal guardian/POA. Questions invited. The patient/parents/legal guardian/POA seems to understand and agrees to proceedwith anesthesia plan. Reviewed the physical assessment, medical history, allergy history and patient home medications list prior to surgery/procedure/anesthetic and documented any changes. Performed airway and anesthesia risk assessments. Anesthesia Type Anesthesia Type: MAC History Source History Obtained from:: Patient and Chart Anesthesia Focused Assessment* Temperature: 98.6 F Pulse Rate: 62 Blood Pressure: 117/81 Respiratory Rate: 17 Pulse Ox: 100 Oxygen Delivery Method: Room Air Airway Assessment Mouth opens: >3 cm Mallampati Score: III Teeth Condition: Caps/Crowns (Patient has several crowns. They are all tight.) Neck Range of motion (ROM): Full ROM Labs Anesthesia Preop lab: CBC WBC 16.9 K/mm3 (4.4-11.0) H 03/04/24 08:20 4 RBC 4.57 M/mm3 (4.2-5.4) 03/04/24 08:20 03/04/24 Hgb 11.6 g/dL (12.0-15.0) L 03/04/24 08:20 4 Hct 37.6 % (37-47) 03/04/24 08:20 03/04/24 Plt Count 324 K/mm3 (150-450) 03/04/24 08:20 03/04/24 CHEMISTRY Potassium 3.8 mmol/L (3.5-5.1) 03/04/24 08:20 03/04/24 Sodium 134 mmol/L (136-145) L 03/04/24 08:20 03/04/24 Magnesium 2.4 mg/dL (1.6-2.6) 03/03/24 14:20 03/03/24 Phosphorus 2.7 mg/dL (2.5-4.9) 12/26/17 05:40 12/26/17 BUN 61 mg/dL (7-18) H 03/04/24 08:20 03/04/24 Creatinine 2.60 mg/dL (0.55-1.02) H 03/04/24 08:20 Glucose 104 mg/dL (74-106) 03/04/24 08:20 03/04/24 TSH 2.500 uIU/mL (0.358-3.740) 03/03/24 14:20 02/14 01/07 COAG Pre-Assessment Diagnosis/Proposed Procedure Planned Operative Procedure(s): COLONOSCOPY Anesthesia History Anesthesia History - multicultural internship: Anesthesia History - multicultural internship Hx Hospitalization Yes: 03/2024- 7 DAYS, [facility]. 12/19/24 12:42 FALLS, KIDNEY STONES, ETC Any Problems With Anesthesia No 12/19/24 12:42 Cholinesterase deficiency No 12/19/24 12:42 You/Your Family Experience No 12/19/24 12:42 fever (hyperthermia) with Relationship Recent Exposure to Contagious No 12/22/24 12:21 Disease Does patient have nerve No 12/19/24 12:42 stimulator Patient instructed to have device shut off --Does patient have Pacemaker No 12/22/24 12:21 or ICD? When Was Last Pacemaker Check QUESTION #4 FULL TEXT: You/Your Family Experience fever (hyperthermia) with Anesthesia Last Oral Intake Last Oral intake: Last Oral Intake NPO since 09:00 12/22/24 12:21 Meds taken in AM with sips of Yes 12/22/24 12:21 water? Meds patient instructed to take am of surgery Any additional information?: Yes NPO since: 09:00 (Patient finished prep at 9 AM.) Meds taken in AM with sips of water?: Yes Meds patient instructed to take am of surgery: Levothyroxine PONV PONV - multicultural internship: PONV - multicultural internship Female Yes 12/19/24 12:42 HX of Motion Sickness No 12/19/24 12:42 HX of N/V After Surgery No 12/19/24 12:42 Non-Smoker Yes 12/19/24 12:42 Duration of Surgery greater No 12/19/24 12:42 than 60 minutes Number of Risk Factors 2 12/19/24 12:42 PONV Score Moderate Risk 12/19/24 12:42 Height & Weight Height & Weight: Anesthesia: Height & Weight Height 5 ft 5 in 12/22/24 12:21 Weight: 71 kg 12/22/24 12:21 Body Mass Index (BMI) 26.0 12/22/24 12:21 Respiratory Assessment Respiratory Assessment - multicultural internship: Respiratory Tract Infection Hx - 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 Has anyone observed you stop No 12/19/24 12:42 breathing during sleep? STOP Results Negative 12/19/24 12:42 QUESTION #5 FULL TEXT : Do you snore loudly (louder than talking or can be heard through closed doors)? 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 Specify any problems Hx of Preganancy in last 3 No 12/19/24 12:42 Months Nurse Filling Out Transfusion [id number] 12/19/24 12:42 & Questions: Date: 12/19/24 12/19/24 12:42 Time: 12:44 12/19/24 12:42 Patient unable to answer at this time (ie. 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 internship: /Reproductive Hx- multicultural internship Hx Now Gestational Age (in weeks): EDC: Hx Hx Para Hx Section SAB No 06/02/24 12:12 Active Medications Active Medications: Current Medications Generic Name Dose Route Start Last Admin Trade Name Freq PRN Reason Stop Dose Admin Lactated Ringer's 1,000 mls @ 15 mls/hr 12/22/24 12:00 12/22/24 12:20 IV 15 mls/hr .Q48H SHANTA Administration PFSH Medical History Kidney stones Thyroid disease Uses wheelchair Back pain Parkinson's disease Orthostatic hypotension History of steroid therapy Wears glasses Post-menopausal Cancer Arthritis History of renal disease DVT (deep venous thrombosis) Easy bruising Syncope Dietary restriction History of diverticulitis Interstitial emphysema of lung Non-smoker History of edema Overactive bladder Intramural leiomyoma of uterus Esophageal dysmotility Abnormal Pap smear of vagina and vaginal HPV Positive P-ANCA titer Hypothyroid Home Medications ?Medication ?Instructions ?Recorded ?Last Taken ?Type aspirin 81 mg chewable tablet 81 mg PO DAILY@0800 06/1712/21/24 History cholecalciferol (vitamin D3) 25 1,000 unit PO BID 06/1712/21/24 History mcg (1,000 unit) tablet (Vitamin D3) mycophenolate mofetil 500 mg 500 mg PO BID 03/04/24 History tablet (CellCept) levothyroxine 100 mcg capsule 100 mcg PO QDAY 04/06/24 12/22/24 History ondansetron 4 mg disintegrating 4 mg PO Q8H PRN nausea and vomiting 04/06/24 Unknown History tablet Lactobacillus acidophilus 250 500 mmu cells PO DAILY 0 06/02/24 12/21/24 History million cell capsule (Probiotic Acidophilus) amitriptyline 50 mg tablet 100 mg PO QHS 07/07/2412/08 History carbidopa 25 mg-levodopa 100 mg 1 tab PO TID 10/11/24 12/21/24 History tablet (Sinemet) pantoprazole 20 mg tablet,delayed 20 mg PO QDAY #30 ta bs 10/11/24 12/21/24 Rx release carbidopa 25 mg tablet 25 mg PO TID 11/08/24 History plecanatide 3 mg tablet (Trulance) 3 mg PO QDAY #30 ta bs 11/21/24 12/21/24 Rx fludrocortisone 0.1 mg tablet 0.2 mg PO DAILY 12/19/24 12/21/24 History multivitamin (Daily Multi-Vitamin 1 tab PO DAILY 12/1912/21/24 History tablet) Allergy/AdvReac Type Severity Reaction Status Date / Time cetirizine (From Rust) Allergy Intermediate Rash Verified 12/22/24 12:18 erythromycin base AdvReac Intermediate Diarrhea Verified 12/22/24 12:18 azithromycin AdvReac Mild Diarrhea Verified 12/22/24 12:18 Family History Mother Thyroid disorder Hypertension Father Heart disease Hypertension COPD (chronic obstructive pulmonary disease) Surgical History S/P laparoscopic appendectomy Hx of colonoscopy History of esophagogastroduodenoscopy (EGD) Hx of tubal ligation Hx of bladder repair surgery H/O thymectomy History of spinal fusion History of cholecystectomy History of colon resection Social History Smoking Status: Never smoker alcohol intake: current alcohol intake frequency: holidays/special occasions only Review of Systems (Anesthesia) ROS Narrative System reviewed and no additional complaints, except as documented. 12/22/24 1317 <Electronically signed by Estevan magana MD> Date _ Estevan Crowder MD Cosigner Signature: Date CC: ~ Signed [facility] Work Phone: Consult note Author Ana Pardo [facility] Note Date/Time December 22, 2024 1:5 9pm [facility] Medical Records Department [address] [place] [address] Anesthesia Postop Eval I 12/22/24 1358 MR#: [id number] Acct: [id number] Name: EREN MERCHANT Rep #:[id number] : 1960 64 From: Ana Pardo CRNA PCP: Dr. Gonzalo Day MD Status :[place] [facility] [place] Race: C Location: [place] [address] Anesthesia: Postop Eval I Current Vital Signs Temperature: 97.9 F Pulse Rate: 84 Blood Pressure: 123/55 Respiratory Rate: 20 Pulse Ox: 100 Assessment Airway patent: Yes Spontaneous unlabored respirations: Yes nausea: No Vomiting: No Anesthesia Complication: No Fluid Hydration Crystalloid volume administer (ml): 200 Total IV fluid infused: 200 Progress Note Anesthesia document: Postop Eval 1 completed: Yes 12/22/24 1359 <Electronically signed by Ana booker KNIFE OPERATOR> Date _ Ana Pardo CRNA Cosigner Signature: Date CC: ~ Signed [facility] Work Phone: Evaluation note* Diagnosis Nausea Nausea alone Epigastric pain Abdominal pain, epigastric [facility] Diagnosis NSIP (nonspecific interstitial pneumonia) ([facility]) Other specified alveolar and parietoalveolar pneumonopathies [facility] [place] [facility] Diagnosis NSIP (nonspecific interstitial pneumonia) (HCC)- Primary Other specified alveolar and parietoalveolar pneumonopathies Antisynthetase syndrome (HCC) Autoimmune disease, not elsewhere classified Esophageal dysmotility Dyskinesia of esophagus History of immunosuppressive therapy Personal history of immunosuppressive therapy Interstitial pulmonary disease (HCC) Postinflammatory pulmonary fibrosis [facility] [place] [facility]* Diagnosis Urinary urgency- Primary Urgency of urination Overactive bladder Hypertonicity of bladder [facility] [place] [facility]* Diagnosis Need for vaccination- Primary Need for prophylactic vaccination and inoculation against unspecified single disease documented [facility] [place] [facility]* Diagnosis Overactive bladder- Primary Hypertonicity of bladder [facility] [place] [facility]* Diagnosis Cystocele, midline- Primary Encounter for gynecological examination (general) (routine) without abnormal findings Encounter for screening mammogram for breast cancer Urinary urgency Urgency of urination Urinary frequency Vaginal atrophy Postmenopausal atrophic vaginitis [facility] [place] [facility]* Diagnosis Cystocele, midline Urinary urgency Urgency of urination Urinary frequency documented [facility] [place] [facility]* Diagnosis Hypothyroidism, unspecified type- Primary Chronic constipation Unspecified constipation Essential tremor Essential and other specified forms of tremor OAB (overactive bladder) Hypertonicity of bladder Low sodium levels Hyposmolality and/or hyponatremia ILD (interstitial lung disease) (HCC) 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) Other disorders of neurohypophysis Thymoma, malignant (HCC) Malignant neoplasm of thymus Brad esophagitis (HCC) Candidiasis of the esophagus Medication monitoring encounter Encounter for therapeutic drug monitoring [facility] Need for vaccination- Primary Need for prophylactic vaccination and inoculation against unspecified single disease [facility] [place] [facility] Diagnosis NSIP (nonspecific interstitial pneumonia) (HCC)- Primary Other specified alveolar and parietoalveolar pneumonopathies Ground glass opacity present on imaging of lung Encounter for screening for osteoporosis Special screening for osteoporosis assisted current use of systemic steroids Encounter for long-term (current) use of steroids assisted current use of immunosuppressive drug [facility] [place] [facility]* Diagnosis Steroid-induced osteopenia- Primary Disorder of bone and cartilage, unspecified [facility] [place] [facility] Diagnosis Lung nodules- Primary Other nonspecific abnormal finding of lung field [facility] [place] [facility]* Diagnosis Brad infection Candidiasis of unspecified site [facility] [place] [facility]* Diagnosis Acute cystitis with hematuria- Primary Acute cystitis [facility] [place] [facility]* Diagnosis Acute cystitis with hematuria- Primary Acute cystitis Cystocele, midline Urinary urgency Urgency of urination Urinary frequency Overactive bladder Hypertonicity of bladder [facility] [place] [facility] Diagnosis Urinary frequency- Primary [facility] [place] [facility]* Diagnosis NSIP (nonspecific interstitial pneumonia) ([facility])- Primary Other specified alveolar and parietoalveolar pneumonopathies documented [facility] [place] [facility]* Diagnosis NSIP (nonspecific interstitial pneumonia) (HCC)- Primary Other specified alveolar and parietoalveolar pneumonopathies High risk medication use Encounter for long-term (current) use of other medications [facility] [place] [facility]* Diagnosis Brad infection Candidiasis of unspecified site [facility] [place] [facility]* Diagnosis Gross hematuria- Primary [facility] [place] [facility]* Diagnosis Acute cystitis with hematuria- Primary Acute cystitis [facility] [place] [facility]* Diagnosis Hypothyroidism, unspecified type [facility] [place] [facility]* Diagnosis 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- Primary [facility] [place] [facility]* Diagnosis Acquired hypothyroidism- Primary Unspecified hypothyroidism Brad infection Candidiasis of unspecified site Need for vaccination Need for prophylactic vaccination and inoculation against unspecified single disease ILD (interstitial lung disease) ([facility]) Postinflammatory pulmonary fibrosis [facility] [place] [facility]* Diagnosis Sore throat- Primary Acute pharyngitis Fever, unspecified fever cause [facility] [place] [facility]* Diagnosis Kidney stone- Primary Calculus of kidney 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 Hydronephrosis with ureteropelvic junction (UPJ) obstruction [facility] [place] [facility]* Diagnosis Acute cough- Primary Sinobronchitis Unspecified sinusitis (chronic) [facility] Diagnosis Bronchitis- Primary Bronchitis, not specified as acute or chronic ILD (interstitial lung disease) ([facility]) Postinflammatory pulmonary fibrosis Subacute cough Cough [facility] [place] [facility]* Diagnosis OAB (overactive bladder)- Primary Hypertonicity of bladder documented in this encounter [facility] note* Diagnosis Nocturia- Primary Urinary frequency OAB (overactive bladder) Hypertonicity of bladder documented in this encounter [facility] note* Diagnosis Hydronephrosis with ureteropelvic junction (UPJ) obstruction [facility] [place] [facility]* Diagnosis Kidney stone- Primary Calculus of kidney [facility] [place] [facility]* Diagnosis Urinary frequency- Primary OAB (overactive bladder) Hypertonicity of bladder Nocturia Preop examination Preoperative examination, unspecified documented in this encounter [facility] note* Diagnosis NSIP (nonspecific interstitial pneumonitis) ([facility])- Primary Other specified alveolar and parietoalveolar pneumonopathies Urinary frequency OAB (overactive bladder) Hypertonicity of bladder Nocturia Preop examination Preoperative examination, unspecified [facility] [place] [facility]* Diagnosis NSIP (nonspecific interstitial pneumonitis) ([facility])- Primary Other specified alveolar and parietoalveolar pneumonopathies Urinary frequency OAB (overactive bladder) Hypertonicity of bladder Nocturia Preop examination Preoperative examination, unspecified [facility] [place] [facility]* Diagnosis Brad infection- Primary Candidiasis of unspecified site Urinary frequency OAB (overactive bladder) Hypertonicity of bladder Nocturia Preop examination Preoperative examination, unspecified documented in this encounter [facility] note* Diagnosis Hypothyroidism, unspecified type- Primary Brad esophagitis ([facility]) Candidiasis of the esophagus Epigastric pain Abdominal pain, epigastric Esophageal dysmotility Dyskinesia of esophagus ILD (interstitial lung disease) ([facility]) Postinflammatory pulmonary fibrosis OAB (overactive bladder) Hypertonicity of bladder Low sodium levels Hyposmolality and/or hyponatremia Syndrome of inappropriate ADH (SIADH) secretion ([facility]) Other disorders of neurohypophysis Thymoma, malignant (HCC) Malignant neoplasm of thymus Urinary frequency OAB (overactive bladder) Hypertonicity of bladder Nocturia Preop examination Preoperative examination, unspecified [facility] [place] [facility]* Diagnosis Preoperative examination- Primary Preoperative examination, unspecified NSIP (nonspecific interstitial pneumonitis) (HCC) Other specified alveolar and parietoalveolar pneumonopathies Esophageal dysmotility Dyskinesia of esophagus Acquired hypothyroidism Unspecified hypothyroidism Thymoma, malignant (HCC) Malignant neoplasm of thymus Current chronic use of systemic steroids Stage 3a chronic kidney disease (HCC) Urinary frequency OAB (overactive bladder) Hypertonicity of bladder Nocturia Preop examination Preoperative examination, unspecified [facility] Preoperative examination- Primary Preoperative examination, unspecified OAB (overactive bladder) Hypertonicity of bladder Urge urinary incontinence Urge incontinence Urinary frequency Urinary urgency Urgency of urination Urinary frequency OAB (overactive bladder) Hypertonicity of bladder Nocturia Preop examination Preoperative examination, unspecified [facility] Diagnosis Post-operative state- Primary Other postprocedural status Urinary frequency [facility]* Diagnosis Need for vaccination- Primary Need for prophylactic vaccination and inoculation against unspecified single disease [facility] Diagnosis Encounter for screening mammogram for breast cancer [facility] Diagnosis Gross hematuria [facility]* Diagnosis NSIP (nonspecific interstitial pneumonia) (HCC) Other specified alveolar and parietoalveolar pneumonopathies documented [facility] [place] [facility]* Diagnosis Medicare annual wellness visit, initial- Primary Routine general medical examination at a health care facility Hypothyroidism, unspecified type ILD (interstitial lung disease) (HCC) Postinflammatory pulmonary fibrosis Low sodium levels Hyposmolality and/or hyponatremia OAB (overactive bladder) Hypertonicity of bladder Encounter for screening mammogram for malignant neoplasm of breast Other screening mammogram Stage 3a chronic kidney disease (HCC) Obesity, Class I, BMI 30-34.9 Obesity, unspecified [facility] Diagnosis Encounter for screening mammogram for malignant neoplasm of breast Other screening mammogram [facility]* Diagnosis Encounter for screening mammogram for malignant neoplasm of breast- Primary Other screening mammogram [facility]* Diagnosis Overactive bladder- Primary Hypertonicity of bladder Urinary frequency Dysuria Neurostimulator device in situ documented [facility] [place] [facility]* Diagnosis Urinary frequency- Primary Vaginal burning Other specified symptom associated with female genital organs [facility] Diagnosis NSIP (nonspecific interstitial pneumonitis) ([facility])- Primary Other specified alveolar and parietoalveolar pneumonopathies Current chronic use of systemic steroids assisted current use of immunosuppressive drug [facility] Diagnosis Overactive bladder- Primary Hypertonicity of bladder Vulvar burning Unspecified symptom associated with female genital organs Vaginal atrophy Postmenopausal atrophic vaginitis [facility] [place] [facility]* Diagnosis Tremor- Primary Abnormal involuntary movements [facility] [place] [facility]* Diagnosis Kidney stone Calculus of kidney documented [facility] [place] [facility]* Diagnosis Kidney stone- Primary Calculus of kidney [facility] [place] [facility]* Diagnosis Kidney stone- Primary Calculus of kidney [facility] [place] [facility]* Diagnosis Encounter for gynecological examination (general) (routine) without abnormal findings- Primary Pap smear for cervical cancer screening Screening for malignant neoplasm of the cervix Encounter for screening mammogram for breast cancer documented [facility] [place] [facility]* Diagnosis Kidney stone Calculus of kidney [facility] [place] [facility]* Diagnosis Overactive bladder- Primary Hypertonicity of bladder Urinary frequency documented [facility] [place] [facility]* Diagnosis Kidney stone- Primary Calculus of kidney Hypothyroidism, unspecified type- Primary Tremor Abnormal involuntary movements Low sodium levels Hyposmolality and/or hyponatremia ILD (interstitial lung disease) ([facility]) Postinflammatory pulmonary fibrosis Stage 3a chronic kidney disease (HCC) documented [facility] [place] [facility]* Diagnosis Tremor- Primary Abnormal involuntary movements [...] and behavioral disorders [facility] [place] [facility]* Diagnosis Hyponatremia- Primary Hyposmolality and/or hyponatremia [...] interstitial cystitis- Primary [facility] [place] [facility]* Diagnosis Hyponatremia- Primary Hyposmolality and/or hyponatremia [...] (HCC) Secondary Parkinsonism documented [facility] [place] [facility]* Diagnosis Hyponatremia- Primary Hyposmolality and/or hyponatremia [...] interstitial cystitis- Primary [facility] [place] [facility]* Diagnosis Hyponatremia- Primary Hyposmolality and/or hyponatremia [...] triglycerides Pure hyperglyceridemia documented [facility] [place] [facility]* Diagnosis Hyponatremia- Primary Hyposmolality and/or hyponatremia [...] kidney disease (HCC) [facility] [place] [facility]* Diagnosis Hyponatremia- Primary Hyposmolality and/or hyponatremia [...] kidney disease (HCC) documented [facility] [place] [facility]* Diagnosis Hyponatremia- Primary Hyposmolality and/or hyponatremia [...] kidney disease (HCC) [facility] [place] [facility]* Diagnosis Hyponatremia- Primary Hyposmolality and/or hyponatremia [...] Chest pain, unspecified documented in this encounter [facility] note* Diagnosis Hyponatremia- Primary Hyposmolality and/or hyponatremia [...] kidney disease (HCC) Chronic interstitial cystitis- Primary Dizziness Dizziness and giddiness Hypotension, unspecified hypotension type- Primary Tremor Abnormal involuntary movements * Assessment & Plan Note - Wiley Benitez MD - 03/03/2024 10:11 PM EDT Associated Problem(s): Chronic interstitial cystitis - Pt is s/p mirabegron, oxybutynin, interstim, botox 100 units, now botox 200 units with no improvement in OAB symptoms (had some improvement w/ interstim but didn't last long) - Voids q20 minutes, waking q1h at night; feels if she doesn't empty her bladder she is in severe discomfort - Last cystoscopy revealed Bladder mucosa was erythematous with petechiae and glomerulations at thebladder base and trigone upon entry of the cystoscope. - concerning for IC - Possible that she has been treated for OAB while she actually has picture more c/w IC - Recommend IC pathway- recommend elavil 10mg and uptitrating to 50-75mg on 01/10 - Also discussed other oral medications, PFPT, cystoscopy with fulguration v steroids, bladder installations as treatment options - Recommend pyridium PRN for 2-3 days when in -03/03: recommend titrating down and off of amitryptiline while she is undergoing neuro/falls/seizure workup. Elavil is helpful kimber at night, but given large increase in falls recently safest to be off of it. Can discuss once acute issue resolves if safe to restart. Taper discussed as 50mg 4-5d, then 25mg 4- 5 days then stop. * Assessment & Plan Note - Wiley Benitez MD - 03/03/2024 10:11 PM EDT Associated Problem(s): Dizziness Recommend she present to ER for evaluation today given witnessed fall vs seizure in the office waiting room. I told her I have serious concerns about her safety and she should have an evaluation thatshouldn't wait until Wednesday. She has family with her today and agreed with my recommendation and said she would go to [facility]. documented in this encounter [facility] note* Diagnosis Hyponatremia- Primary Hyposmolality and/or hyponatremia [...] kidney disease (HCC) Chronic interstitial cystitis- Primary Dizziness Dizziness and giddiness Rib pain Chest pain, unspecified Hypotension, unspecified hypotension type- Primary Tremor Abnormal involuntary movements documented in this encounter [facility] note* Diagnosis Hydronephrosis with urinary obstruction due to ureteral calculus- Primary Pyelonephritis Unspecified pyelonephritis Syncope and collapse Hydronephrosis with urinary obstruction due to ureteral calculus Esophageal dysmotility Dyskinesia of esophagus Esophageal dysmotility Dyskinesia of esophagus Calculus of ureter documented in this encounter [facility] note* Diagnosis Hyponatremia- Primary Hyposmolality and/or hyponatremia [...] kidney disease (HCC) Chronic interstitial cystitis- Primary Dizziness Dizziness and giddiness Hospital discharge follow-up- Primary Other follow-up examination Need for vaccination Need for prophylactic vaccination and inoculation against unspecified single disease Kidney infection Infection of kidney, unspecified Orthostatic hypotension Acquired hypothyroidism Unspecified hypothyroidism ILD (interstitial lung disease) (HCC) Postinflammatory pulmonary fibrosis [facility] [place] [facility]* Diagnosis Hyponatremia- Primary Hyposmolality and/or hyponatremia [...] kidney disease (HCC) Chronic interstitial cystitis- Primary Dizziness Dizziness and giddiness Parkinsonism, unspecified Parkinsonism type (HCC)- Primary Dyskinesia, tardive Subacute dyskinesia due to drugs [facility] [place] [facility]* Diagnosis Hydronephrosis with urinary obstruction due to ureteral calculus- Primary [facility] [place] [facility]* Diagnosis Calculus, ureter [N20.1]- Primary Calculus of ureter documented in this encounter [facility] note* Diagnosis Hyponatremia- Primary Hyposmolality and/or hyponatremia [...] kidney disease (HCC) Chronic interstitial cystitis- Primary Dizziness Dizziness and giddiness Urinary tract infection with hematuria, site unspecified- Primary [facility] [place] [facility]* Diagnosis Hyponatremia- Primary Hyposmolality and/or hyponatremia [...] kidney disease (HCC) Chronic interstitial cystitis- Primary Dizziness Dizziness and giddiness Urinary tract infection with hematuria, site unspecified- Primary [facility] [place] [facility]* Diagnosis Hyponatremia- Primary Hyposmolality and/or hyponatremia [...] kidney disease (HCC) Chronic interstitial cystitis- Primary Dizziness Dizziness and giddiness NSIP (nonspecific interstitial pneumonia) (HCC)- Primary Other specified alveolar and parietoalveolar pneumonopathies High risk medication use Encounter for long-term (current) use of other medications Nephrolithiasis Calculus of kidney CKD (chronic kidney disease) stage 4, GFR 15-29 ml/min (HCC) Chronic kidney disease, Stage IV (severe) Chronic interstitial cystitis- Primary documented in this encounter [facility] note* Diagnosis Hyponatremia- Primary Hyposmolality and/or hyponatremia [...] kidney disease (HCC) Chronic interstitial cystitis- Primary Dizziness Dizziness and giddiness Chronic interstitial cystitis- Primary * Assessment & Plan Note - Wiley Benitez MD - 04/17/2024 1:12 PM EST Associated Problem(s): Chronic interstitial cystitis - Pt is s/p mirabegron, oxybutynin, interstim, botox 100 units, now botox 200 units with no improvement in OAB symptoms (had some improvement w/ interstim but didn't last long) - Voids q20 minutes, waking q1h at night; feels if she doesn't empty her bladder she is in severe discomfort - Last cystoscopy revealed Bladder mucosa was erythematous with petechiae and glomerulations at thebladder base and trigone upon entry of the cystoscope. - concerning for IC - Possible that she has been treated for OAB while she actually has picture more c/w IC - Recommend IC pathway- recommend elavil 10mg and uptitrating to 50-75mg on 01/10; had to stop 03/03given hydro, stones, falls etc - Also discussed other oral medications, PFPT, cystoscopy with fulguration v steroids, bladder installations as treatment options - Recommend pyridium PRN for 2-3 days when in - she has discussed amitriptyline w/ her other providers and they are okay with her restarting - plan to restart again at 10mg and titrate up to 75mg - f/u in 6-8 weeks [facility] Diagnosis Hyponatremia- Primary Hyposmolality and/or hyponatremia [...] kidney disease (HCC) Chronic interstitial cystitis- Primary Dizziness Dizziness and giddiness Chronic interstitial cystitis- Primary Secondary adrenal insufficiency (HCC) Glucocorticoid deficiency 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 documented in this encounter [facility] note* Diagnosis Hyponatremia- Primary Hyposmolality and/or hyponatremia [...] kidney disease (HCC) Chronic interstitial cystitis- Primary Dizziness Dizziness and giddiness Chronic interstitial cystitis- Primary ACTH elevation- Primary Other corticoadrenal overactivity documented in this encounter [facility] note* Diagnosis Hyponatremia- Primary Hyposmolality and/or hyponatremia [...] kidney disease (HCC) Chronic interstitial cystitis- Primary Dizziness Dizziness and giddiness Chronic interstitial cystitis- Primary Stage 3a chronic kidney disease (HCC)- Primary [facility] [place] [facility]* Diagnosis Hyponatremia- Primary Hyposmolality and/or hyponatremia [...] kidney disease (HCC) Chronic interstitial cystitis- Primary Dizziness Dizziness and giddiness Chronic interstitial cystitis- Primary Chronic interstitial cystitis- Primary documented in this encounter [facility] note* Diagnosis Hyponatremia- Primary Hyposmolality and/or hyponatremia [...] kidney disease (HCC) Chronic interstitial cystitis- Primary Dizziness Dizziness and giddiness Chronic interstitial cystitis- Primary Acute pain of both knees- Primary documented in this encounter [facility] note* Diagnosis Hyponatremia- Primary Hyposmolality and/or hyponatremia [...] kidney disease (HCC) Chronic interstitial cystitis- Primary Dizziness Dizziness and giddiness Chronic interstitial cystitis- Primary Acute pain of both knees [facility] [place] [facility] Diagnosis Hyponatremia- Primary Hyposmolality and/or hyponatremia [...] kidney disease (HCC) Chronic interstitial cystitis- Primary Dizziness Dizziness and giddiness Chronic interstitial cystitis- Primary Parkinsonism, unspecified Parkinsonism type (HCC)- Primary Dyskinesia, tardive Subacute dyskinesia due to drugs [facility] [facility] [place] [facility]* Diagnosis Hyponatremia- Primary Hyposmolality and/or hyponatremia [...] kidney disease (HCC) Chronic interstitial cystitis- Primary Dizziness Dizziness and giddiness Chronic interstitial cystitis- Primary Chronic interstitial cystitis- Primary * Assessment & Plan Note - Wiley Benitez MD - 06/09/2024 3:53 PM EST Associated Problem(s): Chronic interstitial cystitis - Pt is s/p mirabegron, oxybutynin, interstim, botox 100 units, now botox 200 units with no improvement in OAB symptoms (had some improvement w/ interstim but didn't last long) - Voids q20 minutes, waking q1h at night; feels if she doesn't empty her bladder she is in severe discomfort - Last cystoscopy revealed Bladder mucosa was erythematous with petechiae and glomerulations at thebladder base and trigone upon entry of the cystoscope. - concerning for IC - Possible that she has been treated for OAB while she actually has picture more c/w IC - Recommend IC pathway- recommend elavil 10mg and uptitrating to 50-75mg on 01/10; had to stop 03/03given hydro, stones, falls etc; restarted 04/17/24 (after discussing w/ other providers) - Also discussed other oral medications, PFPT, cystoscopy with fulguration v steroids, bladder installations as treatment options - Recommend pyridium PRN for 2-3 days when in flare - Today: increased to elavil 100mg; ordered 25mg tablets as she just picked up 90d supply of 75mg tablets - f/u 6 weeks documented in this encounter [facility] note* Diagnosis Hyponatremia- Primary Hyposmolality and/or hyponatremia [...] kidney disease (HCC) Chronic interstitial cystitis- Primary Dizziness Dizziness and giddiness Chronic interstitial cystitis- Primary Chronic interstitial cystitis- Primary NSIP (nonspecific interstitial pneumonia) (HCC) Other specified alveolar and parietoalveolar pneumonopathies documented in this encounter [facility] note* Diagnosis Hyponatremia- Primary Hyposmolality and/or hyponatremia [...] kidney disease (HCC) Chronic interstitial cystitis- Primary Dizziness Dizziness and giddiness Chronic interstitial cystitis- Primary Chronic interstitial cystitis- Primary Right hand pain- Primary Pain in limb documented in this encounter [facility] note* Diagnosis Hyponatremia- Primary Hyposmolality and/or hyponatremia [...] Preoperative examination, unspecified NSIP (nonspecific interstitial pneumonitis) ([facility]) Other specified alveolar and parietoalveolar pneumonopathies Esophageal dysmotility Dyskinesia of esophagus Acquired hypothyroidism Unspecified hypothyroidism Thymoma, malignant ([facility]) Malignant neoplasm of thymus Current chronic use of systemic steroids Stage 3a chronic kidney disease (HCC) Chronic interstitial cystitis- Primary Dizziness Dizziness and giddiness Chronic interstitial cystitis- Primary Chronic interstitial cystitis- Primary NSIP (nonspecific interstitial pneumonitis) ([facility])- Primary Other specified alveolar and parietoalveolar pneumonopathies 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 CKD stage 3b, GFR 30-44 ml/min ([facility]) documented in this encounter [facility] note* Diagnosis Hyponatremia- Primary Hyposmolality and/or hyponatremia [...] Preoperative examination, unspecified NSIP (nonspecific interstitial pneumonitis) ([facility]) Other specified alveolar and parietoalveolar pneumonopathies Esophageal dysmotility Dyskinesia of esophagus Acquired hypothyroidism Unspecified hypothyroidism Thymoma, malignant (HCC) Malignant neoplasm of thymus Current chronic use of systemic steroids Stage 3a chronic kidney disease (HCC) Chronic interstitial cystitis- Primary Dizziness Dizziness and giddiness Chronic interstitial cystitis- Primary Chronic interstitial cystitis- Primary Hypothyroidism, unspecified type documented in this encounter [facility] note* Diagnosis Hyponatremia- Primary Hyposmolality and/or hyponatremia [...] kidney disease (HCC) Chronic interstitial cystitis- Primary Dizziness Dizziness and giddiness Chronic interstitial cystitis- Primary Chronic interstitial cystitis- Primary Right hand pain Pain in limb documented in this encounter [facility] note* Diagnosis Hyponatremia- Primary Hyposmolality and/or hyponatremia [...] kidney disease (HCC) Chronic interstitial cystitis- Primary Dizziness Dizziness and giddiness Chronic interstitial cystitis- Primary Chronic interstitial cystitis- Primary Pain of right thumb- Primary Pain in limb [facility] [place] [facility]* Diagnosis Hyponatremia- Primary Hyposmolality and/or hyponatremia [...] kidney disease (HCC) Chronic interstitial cystitis- Primary Dizziness Dizziness and giddiness Chronic interstitial cystitis- Primary Chronic interstitial cystitis- Primary Medicare annual wellness visit, subsequent- Primary Routine general medical examination at a health care facility Hypothyroidism, unspecified type Stage 3a chronic kidney disease (HCC) History of tremor Post-menopausal Asymptomatic postmenopausal status (age-related) (natural) documented in this encounter [facility] note* Diagnosis Hyponatremia- Primary Hyposmolality and/or hyponatremia [...] kidney disease (HCC) Chronic interstitial cystitis- Primary Dizziness Dizziness and giddiness Chronic interstitial cystitis- Primary Chronic interstitial cystitis- Primary Myalgia- Primary Mylagia and myositis, unspecified Costochondritis Tietze's disease Pain in both upper arms Orthostatic hypotension [facility] [place] [facility]* Diagnosis Hyponatremia- Primary Hyposmolality and/or hyponatremia [...] kidney disease (HCC) Chronic interstitial cystitis- Primary Dizziness Dizziness and giddiness Chronic interstitial cystitis- Primary Chronic interstitial cystitis- Primary Chronic interstitial cystitis- Primary Gross hematuria [facility] Diagnosis Hyponatremia- Primary Hyposmolality and/or hyponatremia [...] kidney disease (HCC) Chronic interstitial cystitis- Primary Dizziness Dizziness and giddiness Chronic interstitial cystitis- Primary Chronic interstitial cystitis- Primary Gross hematuria- Primary Nephrolithiasis Calculus of kidney documented in this encounter [facility] note* Diagnosis Hyponatremia- Primary Hyposmolality and/or hyponatremia [...] kidney disease (HCC) Chronic interstitial cystitis- Primary Dizziness Dizziness and giddiness Chronic interstitial cystitis- Primary Chronic interstitial cystitis- Primary Gross hematuria Nephrolithiasis Calculus of kidney documented in this encounter [facility] note* Diagnosis Hyponatremia- Primary Hyposmolality and/or hyponatremia [...] kidney disease (HCC) Chronic interstitial cystitis- Primary Dizziness Dizziness and giddiness Chronic interstitial cystitis- Primary Chronic interstitial cystitis- Primary Parkinsonism, unspecified Parkinsonism type (HCC)- Primary Neuroleptic-induced tardive dyskinesia Subacute dyskinesia due to drugs Stage 3b chronic kidney disease (HCC) [facility] [place] [facility]* Diagnosis Hyponatremia- Primary Hyposmolality and/or hyponatremia [...] kidney disease (HCC) Chronic interstitial cystitis- Primary Dizziness Dizziness and giddiness Chronic interstitial cystitis- Primary Chronic interstitial cystitis- Primary Dysuria- Primary [facility] [place] [facility]* Diagnosis Hyponatremia- Primary Hyposmolality and/or hyponatremia [...] kidney disease (HCC) Chronic interstitial cystitis- Primary Dizziness Dizziness and giddiness Chronic interstitial cystitis- Primary Chronic interstitial cystitis- Primary Encounter for screening mammogram for breast cancer documented in this encounter [facility] note* Diagnosis Hyponatremia- Primary Hyposmolality and/or hyponatremia [...] kidney disease (HCC) Chronic interstitial cystitis- Primary Dizziness Dizziness and giddiness Chronic interstitial cystitis- Primary Chronic interstitial cystitis- Primary Syncope, unspecified syncope type- Primary Hypothyroidism, unspecified type documented in this encounter [facility] note* Diagnosis Hyponatremia- Primary Hyposmolality and/or hyponatremia [...] kidney disease (HCC) Chronic interstitial cystitis- Primary Dizziness Dizziness and giddiness Chronic interstitial cystitis- Primary Chronic interstitial cystitis- Primary Lightheadedness- Primary Dizziness and giddiness documented [facility] [place] [facility]* Diagnosis Hyponatremia- Primary Hyposmolality and/or hyponatremia [...] kidney disease (HCC) Chronic interstitial cystitis- Primary Dizziness Dizziness and giddiness Chronic interstitial cystitis- Primary Chronic interstitial cystitis- Primary Fall in home, initial encounter Acute hip pain, right Acute right-sided low back pain without sciatica Injury of head, initial encounter Orbital pain, left [facility] [place] [facility] Diagnosis Hyponatremia- Primary Hyposmolality and/or hyponatremia [...] kidney disease (HCC) Chronic interstitial cystitis- Primary Dizziness Dizziness and giddiness Chronic interstitial cystitis- Primary Chronic interstitial cystitis- Primary Fall in home, initial encounter- Primary Acute right-sided low back pain without sciatica Acute hip pain, right Injury of head, initial encounter Orbital pain, left At high risk for falls Personal history of fall Fall in home, initial encounter Acute hip pain, right Acute right-sided low back pain without sciatica Injury of head, initial encounter Orbital pain, left [facility] [place] [facility] Diagnosis Hyponatremia- Primary Hyposmolality and/or hyponatremia [...] kidney disease (HCC) Chronic interstitial cystitis- Primary Dizziness Dizziness and giddiness Chronic interstitial cystitis- Primary Chronic interstitial cystitis- Primary On Cellcept therapy- Primary NSIP (nonspecific interstitial pneumonitis) (HCC) Other specified alveolar and parietoalveolar pneumonopathies documented [facility] [place] [facility]* Diagnosis Hyponatremia- Primary Hyposmolality and/or hyponatremia [...] kidney disease (HCC) Chronic interstitial cystitis- Primary Dizziness Dizziness and giddiness Chronic interstitial cystitis- Primary Chronic interstitial cystitis- Primary Parkinsonism, unspecified Parkinsonism type (HCC)- Primary Nausea Nausea alone documented [facility] [place] [facility]* Diagnosis Hyponatremia- Primary Hyposmolality and/or hyponatremia [...] kidney disease (HCC) Chronic interstitial cystitis- Primary Dizziness Dizziness and giddiness Chronic interstitial cystitis- Primary Chronic interstitial cystitis- Primary Fall in home, initial encounter- Primary At high risk for falls Personal history of fall Overactive bladder Hypertonicity of bladder documented [facility] [place] [facility]* Diagnosis Hyponatremia- Primary Hyposmolality and/or hyponatremia [...] kidney disease (HCC) Chronic interstitial cystitis- Primary Dizziness Dizziness and giddiness Chronic interstitial cystitis- Primary Chronic interstitial cystitis- Primary At high risk for falls- Primary Personal history of fall documented in this encounter [facility] note* Diagnosis Hyponatremia- Primary Hyposmolality and/or hyponatremia [...] kidney disease (HCC) Chronic interstitial cystitis- Primary Dizziness Dizziness and giddiness Chronic interstitial cystitis- Primary Chronic interstitial cystitis- Primary NSIP (nonspecific interstitial pneumonitis) (HCC) Other specified alveolar and parietoalveolar pneumonopathies documented in this encounter [facility] note* Diagnosis Hyponatremia- Primary Hyposmolality and/or hyponatremia [...] kidney disease (HCC) Chronic interstitial cystitis- Primary Dizziness Dizziness and giddiness Chronic interstitial cystitis- Primary Chronic interstitial cystitis- Primary NSIP (nonspecific interstitial pneumonitis) (HCC) Other specified alveolar and parietoalveolar pneumonopathies documented [facility] [place] [facility]* Diagnosis Hyponatremia- Primary Hyposmolality and/or hyponatremia [...] kidney disease (HCC) Chronic interstitial cystitis- Primary Dizziness Dizziness and giddiness Chronic interstitial cystitis- Primary Chronic interstitial cystitis- Primary Interstitial pulmonary disease (HCC)- Primary Postinflammatory pulmonary fibrosis NSIP (nonspecific interstitial pneumonia) (HCC) Other specified alveolar and parietoalveolar pneumonopathies Bronchiectasis without complication (HCC) Bronchiectasis without acute exacerbation Stage 3b chronic kidney disease (HCC) On Cellcept therapy documented in this encounter [facility] note* Diagnosis Hyponatremia- Primary Hyposmolality and/or hyponatremia [...] kidney disease (HCC) Chronic interstitial cystitis- Primary Dizziness Dizziness and giddiness Chronic interstitial cystitis- Primary Chronic interstitial cystitis- Primary Fall in home, initial encounter- Primary At high risk for falls Personal history of fall documented in this encounter [facility] note* Diagnosis Hyponatremia- Primary Hyposmolality and/or hyponatremia [...] kidney disease (HCC) Chronic interstitial cystitis- Primary Dizziness Dizziness and giddiness Chronic interstitial cystitis- Primary Chronic interstitial cystitis- Primary Chronic interstitial cystitis- Primary Genitourinary syndrome of menopause documented in this encounter [facility] note* Diagnosis Hyponatremia- Primary Hyposmolality and/or hyponatremia [...] kidney disease (HCC) Chronic interstitial cystitis- Primary Dizziness Dizziness and giddiness Chronic interstitial cystitis- Primary Chronic interstitial cystitis- Primary Fall in home, initial encounter- Primary At high risk for falls Personal history of fall documented in this encounter [facility] note* Diagnosis Hyponatremia- Primary Hyposmolality and/or hyponatremia [...] kidney disease (HCC) Chronic interstitial cystitis- Primary Dizziness Dizziness and giddiness Chronic interstitial cystitis- Primary Chronic interstitial cystitis- Primary Chronic interstitial cystitis documented in this encounter [facility] note* Diagnosis Hyponatremia- Primary Hyposmolality and/or hyponatremia [...] kidney disease (HCC) Chronic interstitial cystitis- Primary Dizziness Dizziness and giddiness Chronic interstitial cystitis- Primary Chronic interstitial cystitis- Primary Constipation, unspecified constipation type- Primary Parkinsonism, unspecified Parkinsonism type ([facility]) REM sleep behavior disorder Restless legs syndrome Restless legs syndrome (RLS) Orthostatic hypotension documented in this encounter [facility] note* Diagnosis Hyponatremia- Primary Hyposmolality and/or hyponatremia [...] kidney disease (HCC) Chronic interstitial cystitis- Primary Dizziness Dizziness and giddiness Chronic interstitial cystitis- Primary Chronic interstitial cystitis- Primary Parkinson's disease, unspecified whether dyskinesia present, unspecified whether manifestations fluctuate (HCC)- Primary Orthostatic hypotension Stage 3 chronic kidney disease, unspecified whether stage 3a or 3b CKD ([facility]) documented in this encounter [facility] note* Diagnosis Hyponatremia- Primary Hyposmolality and/or hyponatremia [...] Preoperative examination, unspecified NSIP (nonspecific interstitial pneumonitis) ([facility]) Other specified alveolar and parietoalveolar pneumonopathies Esophageal dysmotility Dyskinesia of esophagus Acquired hypothyroidism Unspecified hypothyroidism Thymoma, malignant (HCC) Malignant neoplasm of thymus Current chronic use of systemic steroids Stage 3a chronic kidney disease (HCC) Chronic interstitial cystitis- Primary Dizziness Dizziness and giddiness 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 (HCC)- Primary Glucocorticoid deficiency assisted systemic 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 Chronic interstitial cystitis- Primary Chronic interstitial cystitis- Primary documented in this encounter [facility] note* Diagnosis Hyponatremia- Primary Hyposmolality and/or hyponatremia [...] Preoperative examination, unspecified NSIP (nonspecific interstitial pneumonitis) ([facility]) Other specified alveolar and parietoalveolar pneumonopathies Esophageal dysmotility Dyskinesia of esophagus Acquired hypothyroidism Unspecified hypothyroidism Thymoma, malignant (HCC) Malignant neoplasm of thymus Current chronic use of systemic steroids Stage 3a chronic kidney disease (HCC) Chronic interstitial cystitis- Primary Dizziness Dizziness and giddiness Chronic interstitial cystitis- Primary Chronic interstitial cystitis- Primary Encounter for gynecological examination (general) (routine) without abnormal findings- Primary Encounter for screening for human papillomavirus (HPV) Special screening examination for human papillomavirus (HPV) Pap smear for cervical cancer screening Screening for malignant neoplasm of the cervix Encounter for screening mammogram for breast cancer Genital warts Condyloma acuminatum documented in this encounter [facility] note* Diagnosis Hyponatremia- Primary Hyposmolality and/or hyponatremia [...] kidney disease (HCC) Chronic interstitial cystitis- Primary Dizziness Dizziness and giddiness Chronic interstitial cystitis- Primary Chronic interstitial cystitis- Primary Orthostatic hypotension- Primary Parkinson's disease, unspecified whether dyskinesia present, unspecified whether manifestations fluctuate (HCC) documented in this encounter [facility] note* Diagnosis Hyponatremia- Primary Hyposmolality and/or hyponatremia [...] kidney disease (HCC) Chronic interstitial cystitis- Primary Dizziness Dizziness and giddiness Chronic interstitial cystitis- Primary Chronic interstitial cystitis- Primary Orthostatic hypotension- Primary Parkinson's disease, unspecified whether dyskinesia present, unspecified whether manifestations fluctuate ([facility]) documented in this encounter [facility] note* Diagnosis Hyponatremia- Primary Hyposmolality and/or hyponatremia [...] kidney disease (HCC) Chronic interstitial cystitis- Primary Dizziness Dizziness and giddiness Chronic interstitial cystitis- Primary Chronic interstitial cystitis- Primary Kidney stone- Primary Calculus of kidney documented in this encounter [facility] note* Diagnosis Hyponatremia- Primary Hyposmolality and/or hyponatremia [...] kidney disease (HCC) Chronic interstitial cystitis- Primary Dizziness Dizziness and giddiness Chronic interstitial cystitis- Primary Chronic interstitial cystitis- Primary Orthostatic hypotension- Primary Dizziness Dizziness and giddiness Parkinson's disease, unspecified whether dyskinesia present, unspecified whether manifestations fluctuate (HCC) [facility] Hilary Soto [facility] Note Date/Time November 08, 2024 8:32 am [facility] [address] [place] [address] OFFICE VISIT Date of Service: 11/08/24 MR#: [id number] Acct: [id number] Name: EREN MERCHANT Rep #: [id number] : [id number] Provider: KAUSHAL Alas Age/Sex: 64/F Location: [facility] Status: Signed Intake Vital Signs 06/06/24 14:36 Height 5 ft 5 in Intake Visit Reasons: 1 M FU 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: abd pain Allergies cetirizine (From Zyrtec) Allergy (Intermediate, Verified 06/06/24 14:34) Rash erythromycin base Adverse Reaction (Intermediate, Verified 06/06/24 14:34) Diarrhea azithromycin Adverse Reaction (Mild, Verified 06/06/24 14:34) Diarrhea Medications ?Medication ?Instructions ?Recorded ?Confirmed ?Type aspirin 81 mg chewable tablet 81 mg PO DAILY@0800 06/1711/08/24 History cholecalciferol (vitamin D3) 25 1,000 unit PO BID 06/1710/11/24 History mcg (1,000 unit) tablet (Vitamin D3) geriatric [id number] 1 ea PO DAILY 06/28/18 History (Complete Senior tablet) mycophenolate mofetil 500 mg 1,000 mg PO DAILY 4 11/08/24 History tablet (CellCept) levothyroxine 100 mcg capsule 100 mcg PO QDAY 04/06/24 11/08/24 History ondansetron 4 mg disintegrating 4 mg PO Q8H PRN nausea and vomiting 04/06/24 11/08/24 History tablet Lactobacillus acidophilus 250 500 mmu cells PO DAILY 0 06/02/24 11/08/24 History million cell capsule (Probiotic Acidophilus) amitriptyline 50 mg tablet 100 mg PO QHS 07/07/2410/16 History carbidopa 25 mg-levodopa 100 mg 1 tab PO TID 10/11/24 11/08/24 History tablet (Sinemet) pantoprazole 20 mg tablet,delayed 20 mg PO QDAY #30 ta bs 10/11/24 11/08/24 Rx release carbidopa 25 mg tablet 25 mg PO TID 11/08/24 History docusate sodium 100 mg capsule 100 mg PO BID 11/08/24 11/08/24 History (Colace) linaclotide 72 mcg capsule 72 mcg PO QAM #30 caps 10/1611/08/24 Rx (Linzess) Have you fallen in the past year?: Yes Nurse's Note: OV 11/08/24 Pt here for a f/u and reports nausea, constipation, abdominal pain, and indigestion. Pt reports the pantoprazole is helping but colace doesn't seem to be helping with constipation. PFSH Medical History History of steroid therapy Wears glasses Post-menopausal Cancer Arthritis History of renal disease DVT (deep venous thrombosis) Easy bruising Syncope Dietary restriction History of diverticulitis Interstitial emphysema of lung Non-smoker History of edema Overactive bladder Intramural leiomyoma of uterus Esophageal dysmotility Abnormal Pap smear of vagina and vaginal HPV Positive P-ANCA titer Hypothyroid Surgical History Hx of colonoscopy History of esophagogastroduodenoscopy (EGD) Hx of tubal ligation Hx of bladder repair surgery H/O thymectomy History of spinal fusion History of cholecystectomy History of colon resection Family History Mother Thyroid disorder Hypertension Father Heart disease Hypertension COPD (chronic obstructive pulmonary disease) Social History Smoking Status: Never smoker alcohol intake: current alcohol intake frequency: holidays/special occasions only HPI HPI 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: abd pain Details: EREN MERCHANT, is a 64 F who presents to the office today for f/u. [facility] established March 2024 after [facility] hospitalization for seizure like activity. 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 Pt on Cellcept and prednisone for interstitial lung disease. Found to have esophageal thickening on imaging. Underwent EGD showing esophageal candidiasis stated on Diflucan and nystatin. EGD 03.07.24; severe candidiasis w/ no bleeding, LA Grade D acute and erosiveesophagitis with no bleeding, gastritis and normal duodenum. with recommendation for f/u in 8 weeks. OV 04.06.25 Pt feeling better on anti fungal medications but since discontinuingit she has had some symptoms. Endorses burning, globus sensation and cough. Start Fluconazole 200 mg daily for 14 days. Scheduled for EGD EGD 06.06.24;- Normal esophagus. Biopsied. - Small hiatal hernia. - Normal second portion of the duodenum. OV 2..25 Pt doing well today. Reviewed EGD results Swallowing improved after treatment with fluconazole. Last OV 10.11.25 Pt having burning in her esophagus for a few weeks now. It does not feel like when she had esophageal candidiasis. She does not take a PPI. Overthe past few months pt has been having lower abdominal pain and constipation. 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 She started taking Colace 200 mg for three days which did not produce a bmright away. The pain does get better after she has a bm *Start Pantoprazole 20 mg daily, start colace 200 mg daily OV 6.25 Pt continues to have constipation while taking colace. She is having a bm about once a week. Her bm are hard and small balls. She will have to digitally disimpact on some occasions. She has lower abd pain that is relieved after a bm. She feels this is related to her bladder as well. ROS Const Constitutional: Positive for fatigue, frequent falls, headache(s) and weight change; No fever(s) ENT ENT: Positive for headache(s); No difficulty swallowing Gastro GI: Positive for abdominal pain, constipation, heartburn and nausea/dyspepsia; No belching, bloating, change in bowel habits, change in stool character, coffeeground emesis, cramping, diarrhea, difficulty swallowing, feeling full early, excessive flatus, incontinent of stools, Vomiting blood/hematemesis, Blood in stool, loose stools, Black,tarry stools, pain with swallowing, vomiting or other Musc Musculoskeletal: Positive for abnormal gait, joint pain, back pain, muscle weakness, stiffness and Arthritis Skin Skin: No yellowing of the eye or itchy eyes Neuro Neurology: Positive for abnormal gait, dizziness, frequent falls and headache(s) Psych Psychiatric: No anxiety and No depression Endo Endocrine: Positive for fatigue and weight change Aller/Imm Allergy/Immunologic: No itchy eyes Danilo/Lymp Hematologic/Lymphatic: No easy bleeding or easy bruising Exam Const General: cooperative and healthy appearing Resp Effort & Inspection: normal respiratory effort Cardio Rate: regular rate Rhythm: regular rhythm GI Inspection: normal to inspection Auscultation: normal bowel sounds Palpation: soft Assessment and Plan Assessment and Plan (1) Constipation: Status: Acute Plan: Eren is a 64 yo female pt here today for f/u regarding her constipation. Pt hasbeen taking colace with no relief. her last colonoscopy was in 2018. She will undergo repeat colonoscopy at this time. I have started her on Linzess 72 mcg daily. -Colonoscopy -Start Linzess 72 mcg daily -f/u after procedure (2) Abdominal pain: Status: Acute Medications: New linaclotide (Linzess) 72 mcg PO QAM 30 caps 1RF Coding Level of Care Code Off vis,est,level 3 Diagnoses Constipation K59.00 Abdominal pain R10.9 Clinical Quality Measures Falls Risk Screening/Assistive Devices Have you fallen in the past year?: Yes 11/08/24 0832 <Electronically signed by Hilary EASLEY> Date _ Hilary EASLEY Cosigner Signature: Date (if applicable) CC: ~ [facility] Work Phone: Progress note Author Hilary Soto [facility] Note Date/Time December 29, 2024 8: 23am [facility] [address] [place] [address] OFFICE VISIT Date of Service: 12/29/24 MR#: [id number] Acct: [id number] Name: EREN MERCHANT Rep #: [id number] : [id number] Provider: KAUSHAL Alas Age/Sex: 64/F Location: [facility] Status: Signed Intake Vital Signs 12/22/24 12:21 Height 5 ft 5 in Intake Visit Reasons: ABORTED COLONOSCOPY -IMPACTED 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: abd pain Allergies cetirizine (From Zyrte) Allergy (Intermediate, Verified 12/22/24 12:18) Rash erythromycin base Adverse Reaction (Intermediate, Verified 12/22/24 12:18) Diarrhea azithromycin Adverse Reaction (Mild, Verified 12/22/24 12:18) Diarrhea Medications ?Medication ?Instructions ?Recorded ?Confirmed ?Type aspirin 81 mg chewable tablet 81 mg PO DAILY@0800 06/1712/22/24 History cholecalciferol (vitamin D3) 25 1,000 unit PO BID 06/1712/22/24 History mcg (1,000 unit) tablet (Vitamin D3) mycophenolate mofetil 500 mg 500 mg PO BID 03/04/24 History tablet (CellCept) levothyroxine 100 mcg capsule 100 mcg PO QDAY 04/06/24 12/22/24 History ondansetron 4 mg disintegrating 4 mg PO Q8H PRN nausea and vomiting 04/06/24 12/29/24 History tablet Lactobacillus acidophilus 250 500 mmu cells PO DAILY 0 06/02/24 12/22/24 History million cell capsule (Probiotic Acidophilus) amitriptyline 50 mg tablet 100 mg PO QHS 07/07/2401/08 History carbidopa 25 mg-levodopa 100 mg 1 tab PO TID 10/11/24 12/22/24 History tablet (Sinemet) pantoprazole 20 mg tablet,delayed 20 mg PO QDAY #30 ta bs 10/11/24 12/29/24 Rx release carbidopa 25 mg tablet 25 mg PO TID 11/08/24 History plecanatide 3 mg tablet (Trulance) 3 mg PO QDAY #30 ta bs 11/21/24 12/29/24 Rx multivitamin (Daily Multi-Vitamin 1 tab PO DAILY 12/1912/22/24 History tablet) fludrocortisone 0.1 mg tablet 0.3 mg PO DAILY 12/29/24 12/29/24 History peg 3350-electrolytes 236 240 ml PO Q10M #4,000 mL 12/29/24 Rx gram-22.74 gram-6.74 gram-5.86 gram solution (Golytely) Have you fallen in the past year?: No PFSH Medical History Kidney stones Thyroid disease Uses wheelchair Back pain Parkinson's disease Orthostatic hypotension History of steroid therapy Wears glasses Post-menopausal Cancer Arthritis History of renal disease DVT (deep venous thrombosis) Easy bruising Syncope Dietary restriction History of diverticulitis Interstitial emphysema of lung Non-smoker History of edema Overactive bladder Intramural leiomyoma of uterus Esophageal dysmotility Abnormal Pap smear of vagina and vaginal HPV Positive P-ANCA titer Hypothyroid Surgical History S/P laparoscopic appendectomy Hx of colonoscopy History of esophagogastroduodenoscopy (EGD) Hx of tubal ligation Hx of bladder repair surgery H/O thymectomy History of spinal fusion History of cholecystectomy History of colon resection Family History Mother Thyroid disorder Hypertension Father Heart disease Hypertension COPD (chronic obstructive pulmonary disease) Social History Smoking Status: Never smoker alcohol intake: current alcohol intake frequency: holidays/special occasions only HPI HPI 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: abd pain Details: EREN MERCHANT, is a 64 F who presents to the office today for follow-up. [facility] established March 2024 after [facility] hospitalization for seizure like activity. 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 Pt on Cellcept and prednisone for interstitial lung disease. Found to have esophageal thickening on imaging. Underwent EGD showing esophageal candidiasis stated on Diflucan and nystatin. EGD 03.07.24; severe candidiasis w/ no bleeding, LA Grade D acute and erosiveesophagitis with no bleeding, gastritis and normal duodenum. with recommendation for f/u in 8 weeks. OV 04.06.25 Pt feeling better on anti fungal medications but since discontinuingit she has had some symptoms. Endorses burning, globus sensation and cough. Start Fluconazole 200 mg daily for 14 days. Scheduled for EGD EGD 06.06.24;- Normal esophagus. Biopsied. - Small hiatal hernia. - Normal second portion of the duodenum. OV 07.07.24 Pt doing well today. Reviewed EGD results Swallowing improved after treatment with fluconazole. Last OV 10.11.24 Pt having burning in her esophagus for a few weeks now. It does not feel like when she had esophageal candidiasis. She does not take a PPI. Overthe past few months pt has been having lower abdominal pain and constipation. 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 She started taking Colace 200 mg for three days which did not produce a bmright away. The pain does get better after she has a bm *Start Pantoprazole 20 mg daily, start colace 200 mg daily OV 11.08.24 Pt continues to have constipation while taking colace. She is having a bm about once a week. Her bm are hard and small balls. She will have to digitally disimpact on some occasions. She has lower abd pain that is relieved after a bm. She feels this is related to her bladder as well. Start Linzess 72 mcg faily Colonoscopy 12.22.24 - Stool in the entire examined colon. - No specimens collected OV 12.29.24 patient has had just 1 bowel movement since her colonoscopy. Colonoscopy was unable to be completed due to stool in the entire colon. Lavagewas attempted. Patient has been taking Trulance daily which has reduced her abdominal pain but has not produced bowel movements as well as Linzess did. Shedenies abdominal pain, nausea vomiting, or lack of appetite. ROS Const Constitutional: No fatigue, fever(s) or weight change ENT ENT: No difficulty swallowing Gastro GI: Positive for constipation; No abdominal pain, belching, bloating, change in bowel habits, change in stool character, coffee ground emesis, cramping, diarrhea, heartburn, difficulty swallowing, feeling full early, excessive flatus, incontinent of stools, Vomiting blood/hematemesis, Blood in stool, loose stools, Black,tarry stools, nausea/dyspepsia, pain with swallowing, vomiting or other Musc Musculoskeletal: Positive for joint pain, back pain, stiffness and Arthritis Skin Skin: No yellowing of the eye or itchy eyes Psych Psychiatric: No anxiety and No depression Endo Endocrine: No fatigue or weight change Aller/Imm Allergy/Immunologic: No itchy eyes Danilo/Lymp Hematologic/Lymphatic: Positive for easy bruising; No easy bleeding Exam Const General: cooperative, healthy appearing and comfortable HENMT Head: normal to inspection Eyes General: appearance normal, both eyes and all related structures Neck Neck: normal visual inspection Chest Chest palpation & inspection: normal inspection of the chest Resp Effort & Inspection: normal respiratory effort Cardio Rate: regular rate Rhythm: regular rhythm GI Inspection: normal to inspection Auscultation: normal bowel sounds Palpation: soft and nontender Assessment and Plan Assessment and Plan (1) Irritable bowel syndrome with constipation: Status: Acute Plan: Patient is a 64-year-old female patient here today for follow-up after colonoscopy. Colonoscopy was unable to be completed due to incomplete prep. She had stool in the entire examined colon and lavage was attempted however thiswas not sufficient. She notes her stool was still brown prior to her colonoscopy. She has had 1 bowel movement since her colonoscopy. Patient continues with Trulance which helps with abdominal pain but she feels Linzess was better for the constipation. She has been taking the Trulance for over a month now. I advise she continue Trulance and do a fleets enema. Will considerswitching back to Linzess or other a laxative to get her going. I have also ordered a KUB to assess for constipation. During her visit today, she sits comfortably and does not tender to palpation of her abdomen. She denies obstructive symptoms including nausea, vomiting, abdominal pain or lack of appetite. Patient was scheduled for repeat colonoscopy with Brock prep. - KUB - Continue Trulance - Fleets enema - Consider other treatment for constipation - Repeat colonoscopy with GoLytely prep (2) Constipation: Status: Acute Orders: Orders Abdomen Single View Today K58.1 - Irritable bowel syndrome with constipation, K59.00 - Constipation, unspecified Medications: New peg 3350-electrolytes 236-22.74-6.74 -5.86 gram (Golytely) until fecal effluent is clear 240 mL PO Q10M 4,000 mL 0RF Coding Level of Care Code Off vis,est,level 4 Diagnoses Irritable bowel syndrome with constipation K58.1 Constipation K59.00 Clinical Quality Measures Falls Risk Screening/Assistive Devices Have you fallen in the past year?: No 12/29/24 0823 <Electronically signed by Hilary EASLEY> Date _ Hilary EASLEY Cosigner Signature: Date (if applicable) CC: ~ [facility] Work Phone: Reason for referral (narrative)* Diagnostic Procedure Only (Routine) - Authorized Specialty Diagnoses / Procedures [facility] To Contact [facility] Diagnoses Cystocele, midline Urinary urgency Urinary frequency Procedures US FEMALE PELVIS TRANSVAG US TRANSVAGINAL Charis Lopez APRN.CNM [address] [place] [address] Us Imaging Referral ID Status Reason Start Date Expiration Date Visits Requested Visits Authorized [id number] Authorized Auto-Generat ed Referral 11/26/2021 12/26/2022 1 1 * Consult, Test, Treat (Routine) - Authorized Specialty Diagnoses / Procedures [facility]erred To Contact Diagnoses Cystocele, midline Urinary urgency Urinary frequency Procedures CONSULT TO URO GYNECOLOGY OFFICE/OUTPATIENT NEW HIGH MDM 60-74 MINUTES Charis Lopez APRN.CNM [address] [place] [place] [address] Referral ID Status Reason Start Date Expiration Date Visits Requested Visits Authorized [id number] Authorized PCP Requested Referral Auto-Generate d Referral 11/26/2021 11/26/2022 1 1 * Diagnostic Procedure Only (Routine) - Pending Review Specialty Diagnoses / Procedures Referred By Kim cano Referred To Contact BR IMAGING Diagnoses Encounter for screening mammogram for breast cancer Procedures CHYNA SCREENING W JENN SCREENING DIGITAL BREAST TOMOSYNTHESIS BI SCREENING MAMMOGRAPHY BI 2-VIEW BREAST INC CAD Charis Lopez APRN.CNM [address] [place] [place] [address] Br Imaging [address] [place] [address] Referral ID Status Reason Start Date Expiration Date Visits Requested Visits Authorized [id number] Pending Review Auto-Generat ed Referral 11/26/2021 12/26/2022 1 1 [facility] for referral (narrative)* Diagnostic Procedure Only (Routine) - Closed Specialty Diagnoses / Procedures Referred By Kim cano Referred To Contact US IMAGING Diagnoses Cystocele, midline Urinary urgency Urinary frequency Procedures US FEMALE PELVIS TRANSVAG US TRANSVAGINAL Charis Lopez APRN.CNM [address] [place] [place] [address] Us Imaging Referral ID Status Reason Start Date Expiration Date V isits Requested Visits Authorized [id number] Closed Auto-Generate d Referral 11/26/2021 12/26/2022 1 1 [facility] for referral (narrative)* Outpatient Procedure (Routine) - Pending Review Specialty Diagnoses / Procedures Referred By Contac t Referred To Contact [facility] Diagnoses Urinary urgency Urinary frequency Overactive bladder Procedures URODYNAMICS WHI COMPLX CYSTOMETRO W/VOID PRESS&URETHRAL PROFILE John Mg MD [address] [place] [address] [facility] [address] [place] [address] Referral ID Status Reason Start Date Expiration Date Visits Requested Visits Authorized [id number] Pending Review Auto-Generat ed Referral 2 03/16/2023 1 1 [facility] for referral (narrative)* Diagnostic Procedure Only (Routine) - Pending Review Specialty Diagnoses / Procedures [facility] Referred To Contact MOLECULAR & FUNCTIONAL IMAGING Diagnoses Hydronephrosis with ureteropelvic junction (UPJ) obstruction Procedures NM RENAL FLOW/FXN W PHARM KIDNEY IMG MORPHOLOGY VASCULAR FLOW 1 W/RX Mathew Yang Jr., MD [address] [place] [address] [facility] [address] [place] [address] Referral ID Status Reason Start Date Expiration Date Visits Requested Visits Authorized [id number] Pending Review Auto-Generat ed Referral 08/11/2022 09/10/2023 1 1 * Diagnostic Procedure Only (Routine) - Closed Specialty Diagnoses / Procedures [facility] Referred To Contact XR IMAGING Diagnoses Kidney stone Procedures XR ABDOMEN 1V SUPINE RADIOLOGIC EXAM ABDOMEN 1 VIEW Mathew Yang Jr., MD [address] [place] [address] Xr Imaging Referral ID Status Reason Start Date Expiration Date V isits Requested Visits Authorized [id number] Closed Auto-Generate d Referral 08/11/2022 09/10/2023 1 1 [facility] for referral (narrative)* Diagnostic Procedure Only (Routine) - Closed Specialty Diagnoses / Procedures Referred By Kim t Referred To Contact MOLECULAR & FUNCTIONAL IMAGING Diagnoses Hydronephrosis with ureteropelvic junction (UPJ) obstruction Procedures NM RENAL FLOW/FXN W PHARM KIDNEY IMG MORPHOLOGY VASCULAR FLOW 1 W/RX Mathew Yang Jr., MD [address] [place] [address] [facility] [address] [place] [address] Referral ID Status Reason Start Date Expiration Date V isits Requested Visits Authorized [id number] Closed Auto-Generate d Referral 08/11/2022 09/10/2023 1 1 [facility] for referral (narrative)* Diagnostic Procedure Only (Routine) - Pending Review Specialty Diagnoses / Procedures Referred By Kim cano Referred To Contact XR IMAGING Diagnoses Kidney stone Procedures XR ABDOMEN 1V SUPINE RADIOLOGIC EXAM ABDOMEN 1 VIEW Mathew Yang Jr., MD [address] [place] [address] Xr Imaging Referral ID Status Reason Start Date Expiration Date Visits Requested Visits Authorized [id number] Pending Review Auto-Generat ed Referral 11/04/2023 12/03/2023 1 1 [facility] for referral (narrative)* Diagnostic Procedure Only (Routine) - Closed Specialty Diagnoses / Procedures Referred By Kim cano Referred To Contact BR IMAGING Diagnoses Encounter for screening mammogram for breast cancer Procedures CHYNA SCREENING W JENN SCREENING DIGITAL BREAST TOMOSYNTHESIS BI SCREENING MAMMOGRAPHY BI 2-VIEW BREAST INC Charis Phillips APRN.CN [address] [place] [address] Br Imaging [address] [place] [address] Referral ID Status Reason Start Date Expiration Date V isits Requested Visits Authorized [id number] Closed Auto-Generate d Referral 11/26/2021 12/26/2022 1 1 [facility] for referral (narrative)* Diagnostic Procedure Only (Routine) - Pending Review Specialty Diagnoses / Procedures Referred By Kim t Referred To Contact BR IMAGING Diagnoses Encounter for screening mammogram for malignant neoplasm of breast Procedures CHYNA SCREENING SCREENING MAMMOGRAPHY BI 2-VIEW BREAST INC Priyanka Lino MD [address] [place] [address] [facility] Imaging [address] [place] [address] Referral ID Status Reason Start Date Expiration Date Visits Requested Visits Authorized [id number] Pending Review Auto-Generat ed Referral 06/22/2023 07/21/2024 1 1 [facility] for referral (narrative)* Diagnostic Procedure Only (Routine) - Closed Specialty Diagnoses / Procedures Referred By Kim t Referred To Contact BR IMAGING Diagnoses Encounter for screening mammogram for malignant neoplasm of breast Procedures CHYNA SCREENING W JENN SCREENING DIGITAL BREAST TOMOSYNTHESIS BI SCREENING MAMMOGRAPHY BI 2-VIEW BREAST INC Priyanka Lino MD [address] [place] [address] Br Imaging [address] [place] [address] Referral ID Status Reason Start Date Expiration Date V isits Requested Visits Authorized [id number] Closed Auto-Generate d Referral 08/09/2023 09/04/2024 1 1 [facility] for referral (narrative)* Diagnostic Procedure Only (Routine) - Pending Review Specialty Diagnoses / Procedures Referred By Contac t Referred To Contact XR IMAGING Diagnoses Kidney stone Procedures XR ABDOMEN 1V SUPINE RADIOLOGIC EXAM ABDOMEN 1 VIEW Mathew Yang Jr., MD [address] [place] [address] [place] [address] Referral ID Status Reason Start Date Expiration Date Visits Requested Visits Authorized [id number] Pending Review Auto-Generat ed Referral 12/23/2023 12/21/2024 1 1 [facility] for referral (narrative)* Diagnostic Procedure Only (Routine) - Authorized Specialty Diagnoses / Procedures Referred By Contac t Referred To Contact BR IMAGING Diagnoses Encounter for screening mammogram for breast cancer Procedures CHYNA SCREENING W JENN SCREENING DIGITAL BREAST TOMOSYNTHESIS BI SCREENING MAMMOGRAPHY BI 2-VIEW BREAST INC Charis Phillips APRN.CNM [address] [place] [address] Br Imaging [address] [place] [address] Referral ID Status Reason Start Date Expiration Date Visits Requested Visits Authorized [id number] Authorized Auto-Generat ed Referral 11/29/2023 12/28/2024 1 1 [facility] for referral (narrative)* Diagnostic Procedure Only (Routine) - Authorized Specialty Diagnoses / Procedures Referred By Contac t Referred To Contact XR IMAGING Diagnoses Kidney stone Procedures XR ABDOMEN 1V SUPINE RADIOLOGIC EXAM ABDOMEN 1 VIEW Mathew Yang Jr., MD [address] [place] [address] [place] [address] Referral ID Status Reason Start Date Expiration Date Visits Requested Visits Authorized [id number] Authorized Auto-Generat ed Referral 12/20/2024 01/19/2025 1 1 [facility] for referral (narrative)* Diagnostic Procedure Only (Routine) - Closed Specialty Diagnoses / Procedures Referred By Contac t Referred To Contact XR IMAGING Diagnoses Kidney stone Procedures XR ABDOMEN 1V SUPINE RADIOLOGIC EXAM ABDOMEN 1 [place] [address] [place] [address] [place] [address] Referral ID Status Reason Start Date Expiration Date V isits Requested Visits Authorized [id number] Closed Auto-Generate d Referral 08/11/2022 09/10/2023 1 1 [facility] for referral (narrative)* Diagnostic Procedure Only (Routine) - Closed Specialty Diagnoses / Procedures Referred By Contac t Referred To Contact XR IMAGING Diagnoses Acute pain of both knees Procedures XR KNEE GENERAL 4V AP BOTH/PA BOTH/LAT/MERC BILATERAL RADIOLOGIC EXAM KNEE COMPLETE 4/MORE VIEWS Jacqueline Valadez, [employer]EMPLOYMENT SERVICES DIRECTOR [address] [place] [address] [place] [address] Referral ID Status Reason Start Date Expiration Date V isits Requested Visits Authorized [id number] Closed Auto-Generate d Referral 05/24/2024 06/23/2025 1 1 [facility] for referral (narrative)* Diagnostic Procedure Only (Routine) - New Request Specialty Diagnoses / Procedures Referred By Contac t Referred To Contact XR IMAGING Diagnoses Right hand pain Procedures XR HAND GENERAL 3V PA/LAT/OBL RIGHT RADEX HAND MINIMUM 3 VIEWS Raul Juan MD [address] [place] [address] [place] [address] Referral ID Status Reason Start Date Expiration Date Visits Requested Visits Authorized [id number] New Request Auto-Generat ed Referral 06/14/2024 07/14/2025 1 1 [facility] for referral (narrative)* Outpatient Procedure (Routine) - Authorized Specialty Diagnoses / Procedures Referred By Contac t Referred To [facility] Diagnoses NSIP (nonspecific interstitial pneumonitis) (HCC) Procedures LUNG DIFFUSION CAPACITY (DLCO) DIFFUSING CAPACITY Becca Mir [employer]MENT SERVICES DIRECTOR [address] [place] [address] Respiratory [place] [id number] Referral ID Status Reason Start Date Expiration Date Visits Requested Visits Authorized [id number] Authorized Auto-Generat ed Referral 06/20/2024 07/20/2025 1 1 * Outpatient Procedure (Routine) - Pending Review Specialty Diagnoses / Procedures Referred By Contac t Referred To Contact [facility] [place] Diagnoses NSIP (nonspecific interstitial pneumonitis) (HCC) Procedures LUNG VOLUMES Becca Mir APRN.EMPLOYMENT SERVICES DIRECTOR [address] [place] [address] [place] [id number] Referral ID Status Reason Start Date Expiration Date Visits Requested Visits Authorized [id number] Pending Review Auto-Generat ed Referral 06/20/2024 07/20/2025 1 1 * Outpatient Procedure (Routine) - Authorized Specialty Diagnoses / Procedures Referred By Contac t Referred To Contact [facility] Diagnoses NSIP (nonspecific interstitial pneumonitis) (HCC) Procedures SPIROMETRY BASELINE ONLY SPMTRY W/VC EXPIRATORY ANYA W/WO MXML VOL VNTJ Becca Mir APRN.EMPLOYMENT SERVICES DIRECTOR [address] [place] [address] [place] [address] Referral ID Status Reason Start Date Expiration Date Visits Requested Visits Authorized [id number] Authorized Auto-Generat ed Referral 06/20/2024 07/20/2025 1 1 [facility]No reason for referral information available[facility] Services Work Phone: Reason for visit Narrative* Outpatient Procedure (Routine) - Closed Specialty Diagnoses / Procedures Referred By Contac t Referred To Contact [facility] Diagnoses Urinary urgency Urinary frequency Overactive bladder Procedures URODYNAMICS WHI COMPLX CYSTOMETRO W/VOID PRESS&URETHRAL PROFILE John Mg MD [address] [place] [address] [facility] [address] [place] [id number] Referral ID Status Reason Start Date Expiration Date V isits Requested Visits Authorized [id number] Closed Auto-Generate d Referral 03/16/2022 03/16/2023 1 1 [facility] for visit Narrative* Diagnostic Procedure Only (Routine) - Closed Specialty Diagnoses / Procedures Referred By Kim cano Referred To Contact MOLECULAR & FUNCTIONAL IMAGING Diagnoses Hydronephrosis with ureteropelvic junction (UPJ) obstruction Procedures NM RENAL FLOW/FXN W PHARM KIDNEY IMG MORPHOLOGY VASCULAR FLOW 1 W/RX Mathew Yang Jr., MD [address] [place] [address] Molecular & Functional Imaging [address] [place] [address] Referral ID Status Reason Start Date Expiration Date V isits Requested Visits Authorized [id number] Closed Auto-Generate d Referral 08/11/2022 09/10/2023 1 1 [facility] for visit Narrative* Diagnostic Procedure Only (Routine) - Closed Specialty Diagnoses / Procedures Referred By Kim cano Referred To Contact BR IMAGING Diagnoses Encounter for screening mammogram for breast cancer Procedures CHYNA SCREENING W JENN SCREENING DIGITAL BREAST TOMOSYNTHESIS BI SCREENING MAMMOGRAPHY BI 2-VIEW BREAST INC CAD Charis Lopez APRN.[facility] [address] [place] [address] Br Imaging [address] [place] [address] Referral ID Status Reason Start Date Expiration Date V isits Requested Visits Authorized [id number] Closed Auto-Generate d Referral 11/26/2021 12/26/2022 1 1 [facility] for visit Narrative* Diagnostic Procedure Only (Routine) - Closed Specialty Diagnoses / Procedures Referred By Kim cano Referred To Contact BR IMAGING Diagnoses Encounter for screening mammogram for malignant neoplasm of breast Procedures CHYNA SCREENING W JENN SCREENING DIGITAL BREAST TOMOSYNTHESIS BI SCREENING MAMMOGRAPHY BI 2-VIEW BREAST INC CAD [facility], Priyanka D, MD [address] [place] [address] Br Imaging [address] [place] [address] Referral ID Status Reason Start Date Expiration Date V isits Requested Visits Authorized [id number] Closed Auto-Generate d Referral 08/09/2023 09/04/2024 1 1 [facility] for visit Narrative* Diagnostic Procedure Only (Routine) - Closed Specialty Diagnoses / Procedures Referred By Contac t Referred To Contact XR IMAGING Diagnoses Kidney stone Procedures XR ABDOMEN 1V SUPINE RADIOLOGIC EXAM ABDOMEN 1 VIEW Mathew Yang Jr., MD [address] [place] [address] [place] [address] Referral ID Status Reason Start Date Expiration Date V isits Requested Visits Authorized [id number] Closed Auto-Generate d Referral 11/04/2023 12/03/2023 1 1 [facility] for visit Narrative* Diagnostic Procedure Only (Routine) - Closed Specialty Diagnoses / Procedures Referred By Contac t Referred To Contact XR IMAGING Diagnoses Kidney stone Procedures XR ABDOMEN 1V SUPINE RADIOLOGIC EXAM ABDOMEN 1 VIEW Mathew Yang Jr., MD [address] [place] [address] [place] [address] Referral ID Status Reason Start Date Expiration Date V isits Requested Visits Authorized [id number] Closed Auto-Generate d Referral 11/25/2023 12/24/2024 1 1 [facility] for visit Narrative* Diagnostic Procedure Only (Routine) - Closed Specialty Diagnoses / Procedures Referred By Contac t Referred To Contact XR IMAGING Diagnoses Kidney stone Procedures XR ABDOMEN 1V SUPINE RADIOLOGIC EXAM ABDOMEN 1 VIEW Mathew Yang Jr., MD [address] [place] [address] [place] [address] Referral ID Status Reason Start Date Expiration Date V isits Requested Visits Authorized [id number] Closed Auto-Generate d Referral 08/11/2022 09/10/2023 1 1 [facility] for visit Narrative* Auth/Cert (Routine) Specialty Diagnoses / Procedures Referred By Kim t Referred To Contact Diagnoses Pyelonephritis pyelonephritis Procedures n12 Maurilio Groves MD [address] [place] [address] Phone: tel: fax: [facility] Surgical Progressive Care Unit PCU [address] [place] [address] Phone: tel: Referral ID Status Reason Start Date Expiration Date Visits Re quested Visits Authorized [id number] 1 1 [facility] for visit Narrative* Auth/Cert (Routine) Specialty Diagnoses / Procedures Referred By Kim t Referred To Contact Diagnoses Calculus of ureter Procedures VA CYSTO BLADDER W/URETERAL CATHETERIZATION VA CYSTO W/URETEROSCOPY W/LITHOTRIPSY VA CYSTO W/INSERT URETERAL STENT CYSTOSCOPY AND PYELOGRAM BILATERAL URETEROSCOPY, HOLMIUM LASER LITHOTRIPSY BILATERAL URETERAL STENT CHANGE Katherine Bowen MD [address] [place] [address] Phone: tel: fax: Referral ID Status Reason Start Date Expiration Date Visits Re quested Visits Authorized [id number] 03/07/2024 1 1 [facility] for visit Narrative* Diagnostic Procedure Only (Routine) - Closed Specialty Diagnoses / Procedures Referred By Kim t Referred To Contact XR IMAGING Diagnoses Acute pain of both knees Procedures XR KNEE GENERAL 4V AP BOTH/PA BOTH/LAT/MERC BILATERAL RADIOLOGIC EXAM KNEE COMPLETE 4/MORE VIEWS Jacqueline Valadez, HAILE.EMPLOYMENT SERVICES DIRECTOR [address] [place] [address] [place] [address] Referral ID Status Reason Start Date Expiration Date V isits Requested Visits Authorized [id number] Closed Auto-Generate d Referral 05/24/2024 06/23/2025 1 1 [facility] for visit Narrative* Diagnostic Procedure Only (Routine) - Closed Specialty Diagnoses / Procedures Referred By Kim t Referred To Contact XR IMAGING Diagnoses Right hand pain Procedures XR HAND GENERAL 3V PA/LAT/OBL RIGHT RADEX HAND MINIMUM 3 VIEWS Raul Juan MD [address] [place] [address] Phone: tel: fax: [place] [address] Referral ID Status Reason Start Date Expiration Date V isits Requested Visits Authorized [id number] Closed Auto-Generate d Referral 06/14/2024 07/14/2025 1 1 [facility] for visit Narrative* Diagnostic Procedure Only (Routine) - Closed Specialty Diagnoses / Procedures Referred By Contac t Referred To Contact BR IMAGING Diagnoses Encounter for screening mammogram for breast cancer Procedures CHYNA SCREENING W JENN SCREENING DIGITAL BREAST TOMOSYNTHESIS BI SCREENING MAMMOGRAPHY BI 2-VIEW BREAST INC CAD JessicaSuzanneCharis, BACK [employer]ER [employer] [address] [place] [address] Phone: tel: fax: BR IMAGING [address] [place] [address] Referral ID Status Reason Start Date Expiration Date V isits Requested Visits Authorized [id number] Closed Auto-Generate d Referral 11/29/2023 12/28/2024 1 1 [facility] for visit Narrative* Diagnostic Procedure Only (Urgent) - Closed Specialty Diagnoses / Procedures Referred By Contac t Referred To Contact XR IMAGING Diagnoses Injury of head, initial encounter Orbital pain, left Procedures XR FACIAL BONES 3V AP/LAT/DE JESUS RADEX FACIAL BONES COMPLETE MINIMUM 3 VIEWS Jasmyne Day MD [address] [place] [address] Phone: tel: fax: [place] [address] Referral ID Status Reason Start Date Expiration Date V isits Requested Visits Authorized [id number] Closed Auto-Generate d Referral 09/11/2024 10/11/2025 1 1 [facility] Advance Directives No Advanced Directives Records FoundDocuments on File Type Date Recorded 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 Advance Directive(s) Advance Directive(s) 02/17/2021 [...] Documents on File Type Date Recorded 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 No December 19, 2024 12:42pm Advance Directives No September 05, 015 7:49am Reason for Referral Specialty Diagnoses / Procedures Referred By Contac t Referred To Contact CT IMAGING Diagnoses Interstitial pulmonary disease (HCC) Procedures CT CHEST WO IVCON DIAGNOSTIC COMPUTED TOMOGRAPHY THORAX W/O Gumaro Michel MD [address] [place] [address] Ct Imaging Referral ID Status Reason Start Date Expiration Date Visits Requested Visits Authorized [id number] Pending Review Auto-Generat ed Referral 02/12/2022 09/11/2022 1 1 Specialty Diagnoses / Procedures Referred By Contac t Referred To Contact CT IMAGING Diagnoses Lung nodules Procedures CT CHEST WO IVCON DIAGNOSTIC COMPUTED TOMOGRAPHY THORAX W/O CNTLUDINT Karen Alcantara MD [address] [place] [address] Ct Imaging Referral ID Status Reason Start Date Expiration Date Visits Requested Visits Authorized [id number] Pending Review Auto-Generat ed Referral 11/2103/18/2023 1 1 Specialty Diagnoses / Procedures Referred By Contac t Referred To Contact CT IMAGING Diagnoses Interstitial pulmonary disease (HCC) NSIP (nonspecific interstitial pneumonia) (HCC) Procedures CT CHEST WO IVCON DIAGNOSTIC COMPUTED TOMOGRAPHY THORAX W/O Karen Werner MD [address] [place] [address] Ct Imaging Referral ID Status Reason Start Date Expiration Date Visits Requested Visits Authorized [id number] Pending Review Auto-Generat ed Referral 10/16/2022 05/17/2023 1 1 Specialty Diagnoses / Procedures Referred By Contac t Referred To Contact Urology Diagnoses 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 Procedures CONSULT TO UROLOGY OFFICE/OUTPATIENT [facility] MDM 60-74 MINUTES John Mg MD [address] [place] [id number] Referral ID Status Reason Start Date Expiration Date Visits Requested Visits Authorized [id number] Authorized PCP Requested Referral 06/17/2022 06/17/2023 1 1 Specialty Diagnoses / Procedures Referred By Contac t Referred To Contact CT IMAGING Diagnoses Gross hematuria Procedures CT UROGRAM WO/W IVCON CT ABD & PELVIS W/O CONTRST 1+ BODY REGNS John Mg MD [address] [place] [address] Ct Imaging [place] [address] Referral ID Status Reason Start Date Expiration Date V isits Requested Visits Authorized [id number] Closed Auto-Generate d Referral 05/22/2022 07/31/2022 1 1 Specialty Diagnoses / Procedures Referred By Contac t Referred To Contact CT IMAGING Diagnoses Interstitial pulmonary disease (HCC) NSIP (nonspecific interstitial pneumonia) (HCC) Procedures CT CHEST WO IVCON DIAGNOSTIC COMPUTED TOMOGRAPHY THORAX W/O Karen Werner MD [address] [place] [address] Ct Imaging [id number] Referral ID Status Reason Start Date Expiration Date V isits Requested Visits Authorized [id number] Closed Auto-Generate d Referral 10/13/2022 12/12/2022 1 1 Specialty Diagnoses / Procedures Referred By Contac t Referred To Contact CT IMAGING Diagnoses Lung nodules Procedures CT CHEST WO IVCON DIAGNOSTIC COMPUTED TOMOGRAPHY THORAX W/O Karen Werner MD [address] [place] [address] Ct Imaging [id number] Referral ID Status Reason Start Date Expiration Date V isits Requested Visits Authorized [id number] Closed Auto-Generate d Referral 2022 05/25/2022 1 1 Specialty Diagnoses / Procedures Referred By Contac t Referred To Contact CT IMAGING Diagnoses Interstitial pulmonary disease (HCC) Procedures CT CHEST WO IVCON DIAGNOSTIC COMPUTED TOMOGRAPHY THORAX W/O Karen Werner MD [address] [place] [address] Ct Imaging [id number] Referral ID Status Reason Start Date Expiration Date Visits Requested Visits Authorized [id number] Authorized Auto-Generat ed Referral 11/01/2023 10/15/2024 1 1 Specialty Diagnoses / Procedures Referred By Contac t Referred To Contact [facility] Diagnoses Overactive bladder Procedures CONSULT TO PHYSICAL THERAPY PHYSICAL THERAPY EVALUATION [facility] 45 MINS Tariq Brooks APRN.EMPLOYMENT SERVICES DIRECTOR [address] [place] [address] x2 [facility] [place] [address] [place] [address] Referral ID Status Reason Start Date Expiration Date Visits Requested Visits Authorized [id number] Pending Review Auto-Generat ed Referral 10/07/2023 10/06/2024 1 1 Specialty Diagnoses / Procedures Referred By Contac t Referred To Contact Neurology Diagnoses Tremor Procedures CONSULT TO NEUROLOGY OFFICE/OUTPATIENT [facility] MDM 60 MINUTES Jacqueline Valadez APRN.EMPLOYMENT SERVICES DIRECTOR [address] [place] [address] Referral ID Status Reason Start Date Expiration Date Visits Requested Visits Authorized [id number] Authorized PCP Requested Referral 10/14/2023 10/13/2024 1 1 Specialty Diagnoses / Procedures Referred By Contac t Referred To Contact Diagnoses Dyskinesia, tardive Procedures PROVIDER ORDERED FOLLOW UP OFFICE/OUTPATIENT [facility] 60 MINUTES Bogdan Roberts MD [address] [place] [address] Referral ID Status Reason Start Date Expiration Date Visits Requested Visits Authorized [id number] Authorized PCP Requested Referral 01/13/2024 04/12/2024 1 1 Referral ID Status Reason Start Date Expiration Date Visits Requested Visits Authorized [id number] Authorized PCP Requested Referral 04/12/2024 1 1 Referral ID Status Reason Start Date Expiration Date Visits Requested Visits Authorized [id number] Authorized Auto-Generat ed Referral 06/12/2024 05/17/2025 1 1 Medications Administered Section Inactive Administered Medications - up to 3 most recent administrations Medication Order MAR Action Action Date Dose Rate Site lidocaine 10 mg/mL (1 %) 600 mg injection (XYLOCAINE) 600 mg (60 mL), OTHER, ONCE, 1 dose, On Wed01/15/23 at 1000 Given by LIP 01/15/2023 8:40 AM EDT 600 mg Summary Purpose Family History No Family History Records Found Relationship Condition Age at Onset Recorded Date/T gold mother Disorder of thyroid Unknown Hypertension Unknown father Cardiac disease Unknown Chronic obstructive pulmonary disease Unk nown 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 and Reason for Visit 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 Admit Date 3 M FU July 07, 2024 9:16am COLON PAIN-LOWER ABDOMEN October 11, 2024 9:53am Reason for Visit Admit Date Candidiasis of esophagus July 07, 2024 9:16am 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 Admit Date COLON PAIN-LOWER ABDOMEN October 11, 2024 9:53am 1 M FU November 08, 2024 7:46 am Reason for Visit Admit Date Abdominal pain October 11, 2024 9:53a m Candidiasis of esophagus October 11, 2024 9:53am Constipation October 11, 2024 9:53a m GERD (gastroesophageal reflux disease) [facility] 2024 9:53am Abdominal pain November 08, 2024 7:46 am Constipation November 08, 2024 7:46 am Reason for Visit Admit Date Abdominal pain October 11, 2024 9:53a m Candidiasis of esophagus October 11, 2024 9:53am Constipation October 11, 2024 9:53a m GERD (gastroesophageal reflux disease) [facility] 2024 9:53am Abdominal pain November 08, 2024 7:46 am Constipation November 08, 2024 7:46 am Abdominal pain December 22, 2024 11: 52am Constipation December 22, 2024 11: 52am Irritable bowel syndrome with constipati on December 22, 2024 11:52am 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 Admit Date COLON PAIN-LOWER ABDOMEN October 11, 2024 9:53am 1 M FU November 08, 2024 7:46 am ABORTED COLONOSCOPY -IMPACTED December 7:52am Reason for Visit Admit Date Abdominal pain October 11, 2024 9:53a m Candidiasis of esophagus October 11, 2024 9:53am Constipation October 11, 2024 9:53a m GERD (gastroesophageal reflux disease) M ay 2024 9:53am Abdominal pain November 08, 2024 7:46 am Constipation November 08, 2024 7:46 am Abdominal pain December 22, 2024 11: 52am Constipation December 22, 2024 11: 52am Irritable bowel syndrome with constipati on December 22, 2024 11:52am Constipation December 29, 2024 7: 52am Irritable bowel syndrome with constipati on December 29, 2024 7:52am 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 Admit Date COLON PAIN-LOWER ABDOMEN October 11, 2024 9:53am 1 M FU November 08, 2024 7:46 am ABORTED COLONOSCOPY -IMPACTED December 7:52am EORDER December 29, 2024 8: 28am Additional Source Comments Source Comments (unrecognize d section and content) In the event this informatio n is protected by the Federal Confidentiality of Alcohol and Drug Abuse Patient Records regulations: The Federal rules restrict any use of the information to criminally investigate or prosecute any alcohol or drug abuse patient.[facility] the event this information is protected by the Federal Confidentiality of Alcohol and Drug Abuse Patient Records regulations: The Federal rules restrict any use of the information to criminally investigate or prosecute any alcohol or drug abuse patient.[facility] the event this information is protected by the Federal Confidentiality of Alcohol and Drug Abuse Patient Records regulations: The Federal rules restrict any use of the information to criminally investigate or prosecute any alcohol or drug abuse patient.[facility] the event this information is protected by the Federal Confidentiality of Alcohol and Drug Abuse Patient Records regulations: The Federal rules restrict any use of the information to criminally investigate or prosecute any alcohol or drug abuse patient.[facility] the event this information is protected by the Federal Confidentiality of Alcohol and Drug Abuse Patient Records regulations: The Federal rules restrict any use of the information to criminally investigate or prosecute any alcohol or drug abuse patient.[facility] the event this information is protected by the Federal Confidentiality of Alcohol and Drug Abuse Patient Records regulations: The Federal rules restrict any use of the information to criminally investigate or prosecute any alcohol or drug abuse patient.[facility] the event this information is protected by the Federal Confidentiality of Alcohol and Drug Abuse Patient Records regulations: The Federal rules restrict any use of the information to criminally investigate or prosecute any alcohol or drug abuse patient.[facility] Center[facility] the event this information is protected by the Federal Confidentiality of Alcohol and Drug Abuse Patient Records regulations: The Federal rules restrict any use of the information to criminally investigate or prosecute any alcohol or drug abuse patient.[facility] Center[facility] the event this information is protected by the Federal Confidentiality of Alcohol and Drug Abuse Patient Records regulations: The Federal rules restrict any use of the information to criminally investigate or prosecute any alcohol or drug abuse patient.[facility] Center[facility] the event this information is protected by the Federal Confidentiality of Alcohol and Drug Abuse Patient Records regulations: The Federal rules restrict any use of the information to criminally investigate or prosecute any alcohol or drug abuse patient.[facility] Center[facility] the event this information is protected by the Federal Confidentiality of Alcohol and Drug Abuse Patient Records regulations: The Federal rules restrict any use of the information to criminally investigate or prosecute any alcohol or drug abuse patient.[facility] CenterIn the event this information is protected by the Federal Confidentiality of Alcohol and Drug Abuse Patient Records regulations: The Federal rules restrict any use of the information to criminally investigate or prosecute any alcohol or drug abuse patient.[facility] CenterIn the event this information is protected by the Federal Confidentiality of Alcohol and Drug Abuse Patient Records regulations: The Federal rules restrict any use of the information to criminally investigate or prosecute any alcohol or drug abuse patient.[facility] CenterIn the event this information is protected by the Federal Confidentiality of Alcohol and Drug Abuse Patient Records regulations: The Federal rules restrict any use of the information to criminally investigate or prosecute any alcohol or drug abuse patient.[facility] Center[facility] the event this information is protected by the Federal Confidentiality of Alcohol and Drug Abuse Patient Records regulations: The Federal rules restrict any use of the information to criminally investigate or prosecute any alcohol or drug abuse patient.[facility] CenterIn the event this information is protected by the Federal Confidentiality of Alcohol and Drug Abuse Patient Records regulations: The Federal rules restrict any use of the information to criminally investigate or prosecute any alcohol or drug abuse patient.[facility] CenterIn the event this information is protected by the Federal Confidentiality of Alcohol and Drug Abuse Patient Records regulations: The Federal rules restrict any use of the information to criminally investigate or prosecute any alcohol or drug abuse patient.[facility] CenterIn the event this information is protected by the Federal Confidentiality of Alcohol and Drug Abuse Patient Records regulations: The Federal rules restrict any use of the information to criminally investigate or prosecute any alcohol or drug abuse patient.[facility] CenterIn the event this information is protected by the Federal Confidentiality of Alcohol and Drug Abuse Patient Records regulations: The Federal rules restrict any use of the information to criminally investigate or prosecute any alcohol or drug abuse patient.[facility] CenterIn the event this information is protected by the Federal Confidentiality of Alcohol and Drug Abuse Patient Records regulations: The Federal rules restrict any use of the information to criminally investigate or prosecute any alcohol or drug abuse patient.[facility] CenterIn the event this information is protected by the Federal Confidentiality of Alcohol and Drug Abuse Patient Records regulations: The Federal rules restrict any use of the information to criminally investigate or prosecute any alcohol or drug abuse patient.[facility] CenterIn the event this information is protected by the Federal Confidentiality of Alcohol and Drug Abuse Patient Records regulations: The Federal rules restrict any use of the information to criminally investigate or prosecute any alcohol or drug abuse patient.[facility] CenterIn the event this information is protected by the Federal Confidentiality of Alcohol and Drug Abuse Patient Records regulations: The Federal rules restrict any use of the information to criminally investigate or prosecute any alcohol or drug abuse patient.[facility] CenterIn the event this information is protected by the Federal Confidentiality of Alcohol and Drug Abuse Patient Records regulations: The Federal rules restrict any use of the information to criminally investigate or prosecute any alcohol or drug abuse patient.[facility] CenterIn the event this information is protected by the Federal Confidentiality of Alcohol and Drug Abuse Patient Records regulations: The Federal rules restrict any use of the information to criminally investigate or prosecute any alcohol or drug abuse patient.[facility] CenterIn the event this information is protected by the Federal Confidentiality of Alcohol and Drug Abuse Patient Records regulations: The Federal rules restrict any use of the information to criminally investigate or prosecute any alcohol or drug abuse patient.[facility] CenterIn the event this information is protected by the Federal Confidentiality of Alcohol and Drug Abuse Patient Records regulations: The Federal rules restrict any use of the information to criminally investigate or prosecute any alcohol or drug abuse patient.[facility] CenterIn the event this information is protected by the Federal Confidentiality of Alcohol and Drug Abuse Patient Records regulations: The Federal rules restrict any use of the information to criminally investigate or prosecute any alcohol or drug abuse patient.[facility] CenterIn the event this information is protected by the Federal Confidentiality of Alcohol and Drug Abuse Patient Records regulations: The Federal rules restrict any use of the information to criminally investigate or prosecute any alcohol or drug abuse patient.[facility] CenterIn the event this information is protected by the Federal Confidentiality of Alcohol and Drug Abuse Patient Records regulations: The Federal rules restrict any use of the information to criminally investigate or prosecute any alcohol or drug abuse patient.[facility] CenterIn the event this information is protected by the Federal Confidentiality of Alcohol and Drug Abuse Patient Records regulations: The Federal rules restrict any use of the information to criminally investigate or prosecute any alcohol or drug abuse patient.[facility] CenterIn the event this information is protected by the Federal Confidentiality of Alcohol and Drug Abuse Patient Records regulations: The Federal rules restrict any use of the information to criminally investigate or prosecute any alcohol or drug abuse patient.[facility] CenterIn the event this information is protected by the Federal Confidentiality of Alcohol and Drug Abuse Patient Records regulations: The Federal rules restrict any use of the information to criminally investigate or prosecute any alcohol or drug abuse patient.[facility] CenterIn the event this information is protected by the Federal Confidentiality of Alcohol and Drug Abuse Patient Records regulations: The Federal rules restrict any use of the information to criminally investigate or prosecute any alcohol or drug abuse patient.[facility] CenterIn the event this information is protected by the Federal Confidentiality of Alcohol and Drug Abuse Patient Records regulations: The Federal rules restrict any use of the information to criminally investigate or prosecute any alcohol or drug abuse patient.[facility] CenterIn the event this information is protected by the Federal Confidentiality of Alcohol and Drug Abuse Patient Records regulations: The Federal rules restrict any use of the information to criminally investigate or prosecute any alcohol or drug abuse patient.[facility] CenterIn the event this information is protected by the Federal Confidentiality of Alcohol and Drug Abuse Patient Records regulations: The Federal rules restrict any use of the information to criminally investigate or prosecute any alcohol or drug abuse patient.[facility] CenterIn the event this information is protected by the Federal Confidentiality of Alcohol and Drug Abuse Patient Records regulations: The Federal rules restrict any use of the information to criminally investigate or prosecute any alcohol or drug abuse patient.[facility] CenterIn the event this information is protected by the Federal Confidentiality of Alcohol and Drug Abuse Patient Records regulations: The Federal rules restrict any use of the information to criminally investigate or prosecute any alcohol or drug abuse patient.[facility] CenterIn the event this information is protected by the Federal Confidentiality of Alcohol and Drug Abuse Patient Records regulations: The Federal rules restrict any use of the information to criminally investigate or prosecute any alcohol or drug abuse patient.[facility] CenterIn the event this information is protected by the Federal Confidentiality of Alcohol and Drug Abuse Patient Records regulations: The Federal rules restrict any use of the information to criminally investigate or prosecute any alcohol or drug abuse patient.[facility] CenterIn the event this information is protected by the Federal Confidentiality of Alcohol and Drug Abuse Patient Records regulations: The Federal rules restrict any use of the information to criminally investigate or prosecute any alcohol or drug abuse patient.[facility] CenterIn the event this information is protected by the Federal Confidentiality of Alcohol and Drug Abuse Patient Records regulations: The Federal rules restrict any use of the information to criminally investigate or prosecute any alcohol or drug abuse patient.[facility] CenterIn the event this information is protected by the Federal Confidentiality of Alcohol and Drug Abuse Patient Records regulations: The Federal rules restrict any use of the information to criminally investigate or prosecute any alcohol or drug abuse patient.[facility] CenterIn the event this information is protected by the Federal Confidentiality of Alcohol and Drug Abuse Patient Records regulations: The Federal rules restrict any use of the information to criminally investigate or prosecute any alcohol or drug abuse patient.[facility] CenterIn the event this information is protected by the Federal Confidentiality of Alcohol and Drug Abuse Patient Records regulations: The Federal rules restrict any use of the information to criminally investigate or prosecute any alcohol or drug abuse patient.[facility] CenterIn the event this information is protected by the Federal Confidentiality of Alcohol and Drug Abuse Patient Records regulations: The Federal rules restrict any use of the information to criminally investigate or prosecute any alcohol or drug abuse patient.[facility] CenterIn the event this information is protected by the Federal Confidentiality of Alcohol and Drug Abuse Patient Records regulations: The Federal rules restrict any use of the information to criminally investigate or prosecute any alcohol or drug abuse patient.[facility] CenterIn the event this information is protected by the Federal Confidentiality of Alcohol and Drug Abuse Patient Records regulations: The Federal rules restrict any use of the information to criminally investigate or prosecute any alcohol or drug abuse patient.[facility] CenterIn the event this information is protected by the Federal Confidentiality of Alcohol and Drug Abuse Patient Records regulations: The Federal rules restrict any use of the information to criminally investigate or prosecute any alcohol or drug abuse patient.[facility] CenterIn the event this information is protected by the Federal Confidentiality of Alcohol and Drug Abuse Patient Records regulations: The Federal rules restrict any use of the information to criminally investigate or prosecute any alcohol or drug abuse patient.[facility] CenterIn the event this information is protected by the Federal Confidentiality of Alcohol and Drug Abuse Patient Records regulations: The Federal rules restrict any use of the information to criminally investigate or prosecute any alcohol or drug abuse patient.[facility] CenterIn the event this information is protected by the Federal Confidentiality of Alcohol and Drug Abuse Patient Records regulations: The Federal rules restrict any use of the information to criminally investigate or prosecute any alcohol or drug abuse patient.[facility] CenterIn the event this information is protected by the Federal Confidentiality of Alcohol and Drug Abuse Patient Records regulations: The Federal rules restrict any use of the information to criminally investigate or prosecute any alcohol or drug abuse patient.[facility] CenterIn the event this information is protected by the Federal Confidentiality of Alcohol and Drug Abuse Patient Records regulations: The Federal rules restrict any use of the information to criminally investigate or prosecute any alcohol or drug abuse patient.[facility] CenterIn the event this information is protected by the Federal Confidentiality of Alcohol and Drug Abuse Patient Records regulations: The Federal rules restrict any use of the information to criminally investigate or prosecute any alcohol or drug abuse patient.[facility] CenterIn the event this information is protected by the Federal Confidentiality of Alcohol and Drug Abuse Patient Records regulations: The Federal rules restrict any use of the information to criminally investigate or prosecute any alcohol or drug abuse patient.[facility] CenterIn the event this information is protected by the Federal Confidentiality of Alcohol and Drug Abuse Patient Records regulations: The Federal rules restrict any use of the information to criminally investigate or prosecute any alcohol or drug abuse patient.[facility] CenterIn the event this information is protected by the Federal Confidentiality of Alcohol and Drug Abuse Patient Records regulations: The Federal rules restrict any use of the information to criminally investigate or prosecute any alcohol or drug abuse patient.[facility] CenterIn the event this information is protected by the Federal Confidentiality of Alcohol and Drug Abuse Patient Records regulations: The Federal rules restrict any use of the information to criminally investigate or prosecute any alcohol or drug abuse patient.[facility] CenterIn the event this information is protected by the Federal Confidentiality of Alcohol and Drug Abuse Patient Records regulations: The Federal rules restrict any use of the information to criminally investigate or prosecute any alcohol or drug abuse patient.[facility] CenterIn the event this information is protected by the Federal Confidentiality of Alcohol and Drug Abuse Patient Records regulations: The Federal rules restrict any use of the information to criminally investigate or prosecute any alcohol or drug abuse patient.[facility] CenterIn the event this information is protected by the Federal Confidentiality of Alcohol and Drug Abuse Patient Records regulations: The Federal rules restrict any use of the information to criminally investigate or prosecute any alcohol or drug abuse patient.[facility] CenterIn the event this information is protected by the Federal Confidentiality of Alcohol and Drug Abuse Patient Records regulations: The Federal rules restrict any use of the information to criminally investigate or prosecute any alcohol or drug abuse patient.[facility]In the event this information is protected by the Federal Confidentiality of Alcohol and Drug Abuse Patient Records regulations: The Federal rules restrict any use of the information to criminally investigate or prosecute any alcohol or drug abuse patient.[facility] CenterIn the event this information is protected by the Federal Confidentiality of Alcohol and Drug Abuse Patient Records regulations: The Federal rules restrict any use of the information to criminally investigate or prosecute any alcohol or drug abuse patient.[facility]In the event this information is protected by the Federal Confidentiality of Alcohol and Drug Abuse Patient Records regulations: The Federal rules restrict any use of the information to criminally investigate or prosecute any alcohol or drug abuse patient.[facility] CenterIn the event this information is protected by the Federal Confidentiality of Alcohol and Drug Abuse Patient Records regulations: The Federal rules restrict any use of the information to criminally investigate or prosecute any alcohol or drug abuse patient.[facility]In the event this information is protected by the Federal Confidentiality of Alcohol and Drug Abuse Patient Records regulations: The Federal rules restrict any use of the information to criminally investigate or prosecute any alcohol or drug abuse patient.[facility]In the event this information is protected by the Federal Confidentiality of Alcohol and Drug Abuse Patient Records regulations: The Federal rules restrict any use of the information to criminally investigate or prosecute any alcohol or drug abuse patient.[facility]In the event this information is protected by the Federal Confidentiality of Alcohol and Drug Abuse Patient Records regulations: The Federal rules restrict any use of the information to criminally investigate or prosecute any alcohol or drug abuse patient.[facility]In the event this information is protected by the Federal Confidentiality of Alcohol and Drug Abuse Patient Records regulations: The Federal rules restrict any use of the information to criminally investigate or prosecute any alcohol or drug abuse patient.[facility]In the event this information is protected by the Federal Confidentiality of Alcohol and Drug Abuse Patient Records regulations: The Federal rules restrict any use of the information to criminally investigate or prosecute any alcohol or drug abuse patient.[facility]In the event this information is protected by the Federal Confidentiality of Alcohol and Drug Abuse Patient Records regulations: The Federal rules restrict any use of the information to criminally investigate or prosecute any alcohol or drug abuse patient.[facility]In the event this information is protected by the Federal Confidentiality of Alcohol and Drug Abuse Patient Records regulations: The Federal rules restrict any use of the information to criminally investigate or prosecute any alcohol or drug abuse patient.[facility]In the event this information is protected by the Federal Confidentiality of Alcohol and Drug Abuse Patient Records regulations: The Federal rules restrict any use of the information to criminally investigate or prosecute any alcohol or drug abuse patient.[facility]In the event this information is protected by the Federal Confidentiality of Alcohol and Drug Abuse Patient Records regulations: The Federal rules restrict any use of the information to criminally investigate or prosecute any alcohol or drug abuse patient.[facility]In the event this information is protected by the Federal Confidentiality of Alcohol and Drug Abuse Patient Records regulations: The Federal rules restrict any use of the information to criminally investigate or prosecute any alcohol or drug abuse patient.[facility]In the event this information is protected by the Federal Confidentiality of Alcohol and Drug Abuse Patient Records regulations: The Federal rules restrict any use of the information to criminally investigate or prosecute any alcohol or drug abuse patient.[facility]In the event this information is protected by the Federal Confidentiality of Alcohol and Drug Abuse Patient Records regulations: The Federal rules restrict any use of the information to criminally investigate or prosecute any alcohol or drug abuse patient.[facility]In the event this information is protected by the Federal Confidentiality of Alcohol and Drug Abuse Patient Records regulations: The Federal rules restrict any use of the information to criminally investigate or prosecute any alcohol or drug abuse patient.[facility]In the event this information is protected by the Federal Confidentiality of Alcohol and Drug Abuse Patient Records regulations: The Federal rules restrict any use of the information to criminally investigate or prosecute any alcohol or drug abuse patient.[facility]In the event this information is protected by the Federal Confidentiality of Alcohol and Drug Abuse Patient Records regulations: The Federal rules restrict any use of the information to criminally investigate or prosecute any alcohol or drug abuse patient.[facility]In the event this information is protected by the Federal Confidentiality of Alcohol and Drug Abuse Patient Records regulations: The Federal rules restrict any use of the information to criminally investigate or prosecute any alcohol or drug abuse patient.[facility]In the event this information is protected by the Federal Confidentiality of Alcohol and Drug Abuse Patient Records regulations: The Federal rules restrict any use of the information to criminally investigate or prosecute any alcohol or drug abuse patient.[facility]In the event this information is protected by the Federal Confidentiality of Alcohol and Drug Abuse Patient Records regulations: The Federal rules restrict any use of the information to criminally investigate or prosecute any alcohol or drug abuse patient.[facility]In the event this information is protected by the Federal Confidentiality of Alcohol and Drug Abuse Patient Records regulations: The Federal rules restrict any use of the information to criminally investigate or prosecute any alcohol or drug abuse patient.[facility]In the event this information is protected by the Federal Confidentiality of Alcohol and Drug Abuse Patient Records regulations: The Federal rules restrict any use of the information to criminally investigate or prosecute any alcohol or drug abuse patient.[facility]In the event this information is protected by the Federal Confidentiality of Alcohol and Drug Abuse Patient Records regulations: The Federal rules restrict any use of the information to criminally investigate or prosecute any alcohol or drug abuse patient.[facility]In the event this information is protected by the Federal Confidentiality of Alcohol and Drug Abuse Patient Records regulations: The Federal rules restrict any use of the information to criminally investigate or prosecute any alcohol or drug abuse patient.[facility]In the event this information is protected by the Federal Confidentiality of Alcohol and Drug Abuse Patient Records regulations: The Federal rules restrict any use of the information to criminally investigate or prosecute any alcohol or drug abuse patient.[facility]In the event this information is protected by the Federal Confidentiality of Alcohol and Drug Abuse Patient Records regulations: The Federal rules restrict any use of the information to criminally investigate or prosecute any alcohol or drug abuse patient.[facility]In the event this information is protected by the Federal Confidentiality of Alcohol and Drug Abuse Patient Records regulations: The Federal rules restrict any use of the information to criminally investigate or prosecute any alcohol or drug abuse patient.[facility]In the event this information is protected by the Federal Confidentiality of Alcohol and Drug Abuse Patient Records regulations: The Federal rules restrict any use of the information to criminally investigate or prosecute any alcohol or drug abuse patient.[facility]In the event this information is protected by the Federal Confidentiality of Alcohol and Drug Abuse Patient Records regulations: The Federal rules restrict any use of the information to criminally investigate or prosecute any alcohol or drug abuse patient.[facility]In the event this information is protected by the Federal Confidentiality of Alcohol and Drug Abuse Patient Records regulations: The Federal rules restrict any use of the information to criminally investigate or prosecute any alcohol or drug abuse patient.[facility]In the event this information is protected by the Federal Confidentiality of Alcohol and Drug Abuse Patient Records regulations: The Federal rules restrict any use of the information to criminally investigate or prosecute any alcohol or drug abuse patient.[facility]In the event this information is protected by the Federal Confidentiality of Alcohol and Drug Abuse Patient Records regulations: The Federal rules restrict any use of the information to criminally investigate or prosecute any alcohol or drug abuse patient.[facility]In the event this information is protected by the Federal Confidentiality of Alcohol and Drug Abuse Patient Records regulations: The Federal rules restrict any use of the information to criminally investigate or prosecute any alcohol or drug abuse patient.[facility]In the event this information is protected by the Federal Confidentiality of Alcohol and Drug Abuse Patient Records regulations: The Federal rules restrict any use of the information to criminally investigate or prosecute any alcohol or drug abuse patient.[facility]In the event this information is protected by the Federal Confidentiality of Alcohol and Drug Abuse Patient Records regulations: The Federal rules restrict any use of the information to criminally investigate or prosecute any alcohol or drug abuse patient.[facility]In the event this information is protected by the Federal Confidentiality of Alcohol and Drug Abuse Patient Records regulations: The Federal rules restrict any use of the information to criminally investigate or prosecute any alcohol or drug abuse patient.[facility]In the event this information is protected by the Federal Confidentiality of Alcohol and Drug Abuse Patient Records regulations: The Federal rules restrict any use of the information to criminally investigate or prosecute any alcohol or drug abuse patient.[facility]In the event this information is protected by the Federal Confidentiality of Alcohol and Drug Abuse Patient Records regulations: The Federal rules restrict any use of the information to criminally investigate or prosecute any alcohol or drug abuse patient.[facility]In the event this information is protected by the Federal Confidentiality of Alcohol and Drug Abuse Patient Records regulations: The Federal rules restrict any use of the information to criminally investigate or prosecute any alcohol or drug abuse patient.[facility]In the event this information is protected by the Federal Confidentiality of Alcohol and Drug Abuse Patient Records regulations: The Federal rules restrict any use of the information to criminally investigate or prosecute any alcohol or drug abuse patient.[facility]In the event this information is protected by the Federal Confidentiality of Alcohol and Drug Abuse Patient Records regulations: The Federal rules restrict any use of the information to criminally investigate or prosecute any alcohol or drug abuse patient.[facility]In the event this information is protected by the Federal Confidentiality of Alcohol and Drug Abuse Patient Records regulations: The Federal rules restrict any use of the information to criminally investigate or prosecute any alcohol or drug abuse patient.[facility]In the event this information is protected by the Federal Confidentiality of Alcohol and Drug Abuse Patient Records regulations: The Federal rules restrict any use of the information to criminally investigate or prosecute any alcohol or drug abuse patient.[facility]In the event this information is protected by the Federal Confidentiality of Alcohol and Drug Abuse Patient Records regulations: The Federal rules restrict any use of the information to criminally investigate or prosecute any alcohol or drug abuse patient.[facility]In the event this information is protected by the Federal Confidentiality of Alcohol and Drug Abuse Patient Records regulations: The Federal rules restrict any use of the information to criminally investigate or prosecute any alcohol or drug abuse patient.[facility]In the event this information is protected by the Federal Confidentiality of Alcohol and Drug Abuse Patient Records regulations: The Federal rules restrict any use of the information to criminally investigate or prosecute any alcohol or drug abuse patient.[facility] CenterIn the event this information is protected by the Federal Confidentiality of Alcohol and Drug Abuse Patient Records regulations: The Federal rules restrict any use of the information to criminally investigate or prosecute any alcohol or drug abuse patient.[facility] CenterIn the event this information is protected by the Federal Confidentiality of Alcohol and Drug Abuse Patient Records regulations: The Federal rules restrict any use of the information to criminally investigate or prosecute any alcohol or drug abuse patient.[facility] CenterIn the event this information is protected by the Federal Confidentiality of Alcohol and Drug Abuse Patient Records regulations: The Federal rules restrict any use of the information to criminally investigate or prosecute any alcohol or drug abuse patient.[facility] CenterIn the event this information is protected by the Federal Confidentiality of Alcohol and Drug Abuse Patient Records regulations: The Federal rules restrict any use of the information to criminally investigate or prosecute any alcohol or drug abuse patient.[facility] CenterIn the event this information is protected by the Federal Confidentiality of Alcohol and Drug Abuse Patient Records regulations: The Federal rules restrict any use of the information to criminally investigate or prosecute any alcohol or drug abuse patient.[facility] CenterIn the event this information is protected by the Federal Confidentiality of Alcohol and Drug Abuse Patient Records regulations: The Federal rules restrict any use of the information to criminally investigate or prosecute any alcohol or drug abuse patient.[facility] CenterIn the event this information is protected by the Federal Confidentiality of Alcohol and Drug Abuse Patient Records regulations: The Federal rules restrict any use of the information to criminally investigate or prosecute any alcohol or drug abuse patient.[facility] CenterIn the event this information is protected by the Federal Confidentiality of Alcohol and Drug Abuse Patient Records regulations: The Federal rules restrict any use of the information to criminally investigate or prosecute any alcohol or drug abuse patient.[facility] CenterIn the event this information is protected by the Federal Confidentiality of Alcohol and Drug Abuse Patient Records regulations: The Federal rules restrict any use of the information to criminally investigate or prosecute any alcohol or drug abuse patient.[facility] CenterIn the event this information is protected by the Federal Confidentiality of Alcohol and Drug Abuse Patient Records regulations: The Federal rules restrict any use of the information to criminally investigate or prosecute any alcohol or drug abuse patient.[facility] CenterIn the event this information is protected by the Federal Confidentiality of Alcohol and Drug Abuse Patient Records regulations: The Federal rules restrict any use of the information to criminally investigate or prosecute any alcohol or drug abuse patient.[facility] CenterIn the event this information is protected by the Federal Confidentiality of Alcohol and Drug Abuse Patient Records regulations: The Federal rules restrict any use of the information to criminally investigate or prosecute any alcohol or drug abuse patient.[facility] CenterIn the event this information is protected by the Federal Confidentiality of Alcohol and Drug Abuse Patient Records regulations: The Federal rules restrict any use of the information to criminally investigate or prosecute any alcohol or drug abuse patient.[facility] CenterIn the event this information is protected by the Federal Confidentiality of Alcohol and Drug Abuse Patient Records regulations: The Federal rules restrict any use of the information to criminally investigate or prosecute any alcohol or drug abuse patient.[facility] CenterIn the event this information is protected by the Federal Confidentiality of Alcohol and Drug Abuse Patient Records regulations: The Federal rules restrict any use of the information to criminally investigate or prosecute any alcohol or drug abuse patient.[facility] CenterIn the event this information is protected by the Federal Confidentiality of Alcohol and Drug Abuse Patient Records regulations: The Federal rules restrict any use of the information to criminally investigate or prosecute any alcohol or drug abuse patient.[facility] CenterIn the event this information is protected by the Federal Confidentiality of Alcohol and Drug Abuse Patient Records regulations: The Federal rules restrict any use of the information to criminally investigate or prosecute any alcohol or drug abuse patient.[facility] CenterIn the event this information is protected by the Federal Confidentiality of Alcohol and Drug Abuse Patient Records regulations: The Federal rules restrict any use of the information to criminally investigate or prosecute any alcohol or drug abuse patient.[facility] CenterIn the event this information is protected by the Federal Confidentiality of Alcohol and Drug Abuse Patient Records regulations: The Federal rules restrict any use of the information to criminally investigate or prosecute any alcohol or drug abuse patient.[facility] CenterIn the event this information is protected by the Federal Confidentiality of Alcohol and Drug Abuse Patient Records regulations: The Federal rules restrict any use of the information to criminally investigate or prosecute any alcohol or drug abuse patient.[facility] CenterIn the event this information is protected by the Federal Confidentiality of Alcohol and Drug Abuse Patient Records regulations: The Federal rules restrict any use of the information to criminally investigate or prosecute any alcohol or drug abuse patient.[facility] CenterIn the event this information is protected by the Federal Confidentiality of Alcohol and Drug Abuse Patient Records regulations: The Federal rules restrict any use of the information to criminally investigate or prosecute any alcohol or drug abuse patient.[facility] CenterIn the event this information is protected by the Federal Confidentiality of Alcohol and Drug Abuse Patient Records regulations: The Federal rules restrict any use of the information to criminally investigate or prosecute any alcohol or drug abuse patient.[facility] CenterIn the event this information is protected by the Federal Confidentiality of Alcohol and Drug Abuse Patient Records regulations: The Federal rules restrict any use of the information to criminally investigate or prosecute any alcohol or drug abuse patient.[facility] CenterIn the event this information is protected by the Federal Confidentiality of Alcohol and Drug Abuse Patient Records regulations: The Federal rules restrict any use of the information to criminally investigate or prosecute any alcohol or drug abuse patient.[facility] CenterIn the event this information is protected by the Federal Confidentiality of Alcohol and Drug Abuse Patient Records regulations: The Federal rules restrict any use of the information to criminally investigate or prosecute any alcohol or drug abuse patient.[facility] CenterIn the event this information is protected by the Federal Confidentiality of Alcohol and Drug Abuse Patient Records regulations: The Federal rules restrict any use of the information to criminally investigate or prosecute any alcohol or drug abuse patient.[facility] CenterIn the event this information is protected by the Federal Confidentiality of Alcohol and Drug Abuse Patient Records regulations: The Federal rules restrict any use of the information to criminally investigate or prosecute any alcohol or drug abuse patient.[facility] CenterIn the event this information is protected by the Federal Confidentiality of Alcohol and Drug Abuse Patient Records regulations: The Federal rules restrict any use of the information to criminally investigate or prosecute any alcohol or drug abuse patient.[facility] CenterIn the event this information is protected by the Federal Confidentiality of Alcohol and Drug Abuse Patient Records regulations: The Federal rules restrict any use of the information to criminally investigate or prosecute any alcohol or drug abuse patient.[facility] CenterIn the event this information is protected by the Federal Confidentiality of Alcohol and Drug Abuse Patient Records regulations: The Federal rules restrict any use of the information to criminally investigate or prosecute any alcohol or drug abuse patient.[facility] CenterIn the event this information is protected by the Federal Confidentiality of Alcohol and Drug Abuse Patient Records regulations: The Federal rules restrict any use of the information to criminally investigate or prosecute any alcohol or drug abuse patient.[facility] CenterIn the event this information is protected by the Federal Confidentiality of Alcohol and Drug Abuse Patient Records regulations: The Federal rules restrict any use of the information to criminally investigate or prosecute any alcohol or drug abuse patient.[facility] CenterIn the event this information is protected by the Federal Confidentiality of Alcohol and Drug Abuse Patient Records regulations: The Federal rules restrict any use of the information to criminally investigate or prosecute any alcohol or drug abuse patient.[facility] CenterIn the event this information is protected by the Federal Confidentiality of Alcohol and Drug Abuse Patient Records regulations: The Federal rules restrict any use of the information to criminally investigate or prosecute any alcohol or drug abuse patient.[facility] CenterIn the event this information is protected by the Federal Confidentiality of Alcohol and Drug Abuse Patient Records regulations: The Federal rules restrict any use of the information to criminally investigate or prosecute any alcohol or drug abuse patient.[facility] CenterIn the event this information is protected by the Federal Confidentiality of Alcohol and Drug Abuse Patient Records regulations: The Federal rules restrict any use of the information to criminally investigate or prosecute any alcohol or drug abuse patient.[facility] CenterIn the event this information is protected by the Federal Confidentiality of Alcohol and Drug Abuse Patient Records regulations: The Federal rules restrict any use of the information to criminally investigate or prosecute any alcohol or drug abuse patient.[facility] CenterIn the event this information is protected by the Federal Confidentiality of Alcohol and Drug Abuse Patient Records regulations: The Federal rules restrict any use of the information to criminally investigate or prosecute any alcohol or drug abuse patient.[facility] CenterIn the event this information is protected by the Federal Confidentiality of Alcohol and Drug Abuse Patient Records regulations: The Federal rules restrict any use of the information to criminally investigate or prosecute any alcohol or drug abuse patient.[facility] CenterIn the event this information is protected by the Federal Confidentiality of Alcohol and Drug Abuse Patient Records regulations: The Federal rules restrict any use of the information to criminally investigate or prosecute any alcohol or drug abuse patient.[facility] CenterIn the event this information is protected by the Federal Confidentiality of Alcohol and Drug Abuse Patient Records regulations: The Federal rules restrict any use of the information to criminally investigate or prosecute any alcohol or drug abuse patient.[facility] CenterIn the event this information is protected by the Federal Confidentiality of Alcohol and Drug Abuse Patient Records regulations: The Federal rules restrict any use of the information to criminally investigate or prosecute any alcohol or drug abuse patient.[facility] CenterIn the event this information is protected by the Federal Confidentiality of Alcohol and Drug Abuse Patient Records regulations: The Federal rules restrict any use of the information to criminally investigate or prosecute any alcohol or drug abuse patient.[facility] CenterIn the event this information is protected by the Federal Confidentiality of Alcohol and Drug Abuse Patient Records regulations: The Federal rules restrict any use of the information to criminally investigate or prosecute any alcohol or drug abuse patient.[facility] CenterIn the event this information is protected by the Federal Confidentiality of Alcohol and Drug Abuse Patient Records regulations: The Federal rules restrict any use of the information to criminally investigate or prosecute any alcohol or drug abuse patient.[facility] CenterIn the event this information is protected by the Federal Confidentiality of Alcohol and Drug Abuse Patient Records regulations: The Federal rules restrict any use of the information to criminally investigate or prosecute any alcohol or drug abuse patient.[facility] CenterIn the event this information is protected by the Federal Confidentiality of Alcohol and Drug Abuse Patient Records regulations: The Federal rules restrict any use of the information to criminally investigate or prosecute any alcohol or drug abuse patient.[facility] CenterIn the event this information is protected by the Federal Confidentiality of Alcohol and Drug Abuse Patient Records regulations: The Federal rules restrict any use of the information to criminally investigate or prosecute any alcohol or drug abuse patient.[facility] CenterIn the event this information is protected by the Federal Confidentiality of Alcohol and Drug Abuse Patient Records regulations: The Federal rules restrict any use of the information to criminally investigate or prosecute any alcohol or drug abuse patient.[facility] CenterIn the event this information is protected by the Federal Confidentiality of Alcohol and Drug Abuse Patient Records regulations: The Federal rules restrict any use of the information to criminally investigate or prosecute any alcohol or drug abuse patient.[facility] CenterIn the event this information is protected by the Federal Confidentiality of Alcohol and Drug Abuse Patient Records regulations: The Federal rules restrict any use of the information to criminally investigate or prosecute any alcohol or drug abuse patient.[facility] CenterIn the event this information is protected by the Federal Confidentiality of Alcohol and Drug Abuse Patient Records regulations: The Federal rules restrict any use of the information to criminally investigate or prosecute any alcohol or drug abuse patient.[facility] CenterIn the event this information is protected by the Federal Confidentiality of Alcohol and Drug Abuse Patient Records regulations: The Federal rules restrict any use of the information to criminally investigate or prosecute any alcohol or drug abuse patient.[facility] CenterIn the event this information is protected by the Federal Confidentiality of Alcohol and Drug Abuse Patient Records regulations: The Federal rules restrict any use of the information to criminally investigate or prosecute any alcohol or drug abuse patient.[facility] CenterIn the event this information is protected by the Federal Confidentiality of Alcohol and Drug Abuse Patient Records regulations: The Federal rules restrict any use of the information to criminally investigate or prosecute any alcohol or drug abuse patient.[facility] CenterIn the event this information is protected by the Federal Confidentiality of Alcohol and Drug Abuse Patient Records regulations: The Federal rules restrict any use of the information to criminally investigate or prosecute any alcohol or drug abuse patient.[facility]In the event this information is protected by the Federal Confidentiality of Alcohol and Drug Abuse Patient Records regulations: The Federal rules restrict any use of the information to criminally investigate or prosecute any alcohol or drug abuse patient.[facility] CenterIn the event this information is protected by the Federal Confidentiality of Alcohol and Drug Abuse Patient Records regulations: The Federal rules restrict any use of the information to criminally investigate or prosecute any alcohol or drug abuse patient.[facility] CenterIn the event this information is protected by the Federal Confidentiality of Alcohol and Drug Abuse Patient Records regulations: The Federal rules restrict any use of the information to criminally investigate or prosecute any alcohol or drug abuse patient.[facility]In the event this information is protected by the Federal Confidentiality of Alcohol and Drug Abuse Patient Records regulations: The Federal rules restrict any use of the information to criminally investigate or prosecute any alcohol or drug abuse patient.[facility] CenterIn the event this information is protected by the Federal Confidentiality of Alcohol and Drug Abuse Patient Records regulations: The Federal rules restrict any use of the information to criminally investigate or prosecute any alcohol or drug abuse patient.[facility] CenterIn the event this information is protected by the Federal Confidentiality of Alcohol and Drug Abuse Patient Records regulations: The Federal rules restrict any use of the information to criminally investigate or prosecute any alcohol or drug abuse patient.[facility] CenterIn the event this information is protected by the Federal Confidentiality of Alcohol and Drug Abuse Patient Records regulations: The Federal rules restrict any use of the information to criminally investigate or prosecute any alcohol or drug abuse patient.[facility] CenterIn the event this information is protected by the Federal Confidentiality of Alcohol and Drug Abuse Patient Records regulations: The Federal rules restrict any use of the information to criminally investigate or prosecute any alcohol or drug abuse patient.[facility] CenterIn the event this information is protected by the Federal Confidentiality of Alcohol and Drug Abuse Patient Records regulations: The Federal rules restrict any use of the information to criminally investigate or prosecute any alcohol or drug abuse patient.[facility] CenterIn the event this information is protected by the Federal Confidentiality of Alcohol and Drug Abuse Patient Records regulations: The Federal rules restrict any use of the information to criminally investigate or prosecute any alcohol or drug abuse patient.[facility] CenterIn the event this information is protected by the Federal Confidentiality of Alcohol and Drug Abuse Patient Records regulations: The Federal rules restrict any use of the information to criminally investigate or prosecute any alcohol or drug abuse patient.[facility] CenterIn the event this information is protected by the Federal Confidentiality of Alcohol and Drug Abuse Patient Records regulations: The Federal rules restrict any use of the information to criminally investigate or prosecute any alcohol or drug abuse patient.[facility] CenterIn the event this information is protected by the Federal Confidentiality of Alcohol and Drug Abuse Patient Records regulations: The Federal rules restrict any use of the information to criminally investigate or prosecute any alcohol or drug abuse patient.[facility] Care Teams (unrecognized sec tion and content) Rn Hemo Dialysis Relationship Specialty Start Date End Date Priyanka Smith MD [address] [place] [address] PCP - General Family Practice 12/22/17 Regulo Mendoza MD Primary Staff Physician Nephrology 06/12/21 Rn Hemo Dialysis Relationship Specialty Start Date End Date Priyanka Smith MD [address] [place] [address] PCP - General Family Practice 12/22/17 Regulo Mendoza MD Primary Staff Physician Nephrology 06/12/21 Rn Hemo Dialysis Relationship Specialty Start Date End Date Priyanka Smith MD [address] [place] [address] PCP - General Family Practice 12/22/17 Regulo Mendoza MD Primary Staff Physician Nephrology 06/12/21 Rn Hemo Dialysis Relationship Specialty Start Date End Date Priaynka Smith MD [address] [place] [address] PCP - General Family Practice 12/22/17 Regulo Mendoaz MD Primary Staff Physician Nephrology 06/12/21 Rn Hemo Dialysis Relationship Specialty Start Date End Date Priyanka Smith MD [address] [place] [address] PCP - General Family Practice 12/22/17 Regulo Mendoza MD Primary Staff Physician Nephrology 06/12/21 Rn Hemo Dialysis Relationship Specialty Start Date End Date Priyanka Smith MD [address] [place] [address] PCP - General Family Practice 12/22/17 Regulo Mendoza MD Primary Staff Physician Nephrology 06/12/21 Rn Hemo Dialysis Relationship Specialty Start Date End Date Priyanka Smith MD [address] [place] [address] PCP - General Family Practice 12/22/17 Regulo Mendoza MD Primary Staff Physician Nephrology 06/12/21 Rn Hemo Dialysis Relationship Specialty Start Date End Date Priyanka Smith MD [address] [place] [address] PCP - General Family Practice 12/22/17 Regulo Mendoza MD Primary Staff Physician Nephrology 06/12/21 Rn Hemo Dialysis Relationship Specialty Start Date End Date Priyanka Smith MD [address] [place] [address] PCP - General Family Practice 12/22/17 Regulo Mendoza MD Primary Staff Physician Nephrology 06/12/21 Rn Hemo Dialysis Relationship Specialty Start Date End Date Priyanka Smith MD [address] [place] [address] PCP - General Family Medicine 12/22/17 Regulo Mendoza MD Primary Staff Physician Nephrology 06/12/21 Rn Hemo Dialysis Relationship Specialty Start Date End Date Priyanka Smith MD [address] [place] [address] PCP - General Family Medicine 12/22/17 Regulo Mendoza MD Primary Staff Physician Nephrology 06/12/21 Rn Hemo Dialysis Relationship Specialty Start Date End Date Priyanka Smith MD [address] [place] [address] PCP - General Family Medicine 12/22/17 Regulo Mendoza MD Primary Staff Physician Nephrology 06/12/21 Rn Hemo Dialysis Relationship Specialty Start Date End Date Priyanka Smith MD [address] [place] [address] PCP - General Family Medicine 12/22/17 Regulo Mendoza MD Primary Staff Physician Nephrology 06/12/21 Rn Hemo Dialysis Relationship Specialty Start Date End Date Priyanka Smith MD [address] [place] [address] PCP - General Family Medicine 12/22/17 Regulo Mendoza MD Primary Staff Physician Nephrology 06/12/21 Rn Hemo Dialysis Relationship Specialty Start Date End Date Priyanka Smith MD [address] [place] [address] PCP - General Family Medicine 12/22/17 Regulo Mendoza MD Primary Staff Physician Nephrology 06/12/21 Rn Hemo Dialysis Relationship Specialty Start Date End Date Priyanka Smith MD [address] [place] [address] PCP - General Family Medicine 12/22/17 Regulo Mendoza MD Primary Staff Physician Nephrology 06/12/21 Rn Hemo Dialysis Relationship Specialty Start Date End Date Priyanka Smith MD [address] [place] [address] PCP - General Family Medicine 12/22/17 Regulo Mendoza MD Primary Staff Physician Nephrology 06/12/21 Rn Hemo Dialysis Relationship Specialty Start Date End Date Priyanka Smith MD [address] [place] [address] PCP - General Family Medicine 12/22/17 Regulo Mendoza MD Primary Staff Physician Nephrology 06/12/21 Rn Hemo Dialysis Relationship Specialty Start Date End Date Priyanka Smith MD [address] [place] [address] PCP - General Family Medicine 12/22/17 Regulo Mendoza MD Primary Staff Physician Nephrology 06/12/21 Rn Hemo Dialysis Relationship Specialty Start Date End Date Priyanka Smith MD [address] [place] [address] PCP - General Family Medicine 12/22/17 Regulo Mendoza MD [address] [place] [address] Primary Staff Physician Nephrology 06/12/21 Rn Hemo Dialysis Relationship Specialty Start Date End Date Priyanka Smith MD [address] [facility] [place] [address] PCP - General Family Medicine 12/22/17 Regulo Mendoza MD [address] [facility] [place] [address] Primary Staff Physician Nephrology 06/12/21 Rn Hemo Dialysis Relationship Specialty Start Date End Date Priyanka Smith MD [address] [place] [address] PCP - General Family Medicine 12/22/17 Regulo Mendoza MD [address] [facility] [place] [address] Primary Staff Physician Nephrology 06/12/21 Rn Hemo Dialysis Relationship Specialty Start Date End Date Priyanka Smith MD [address] [place] [address] PCP - General Family Medicine 12/22/17 Regulo Mendoza MD [address] [facility] [place] [address] Primary Staff Physician Nephrology 06/12/21 Rn Hemo Dialysis Relationship Specialty Start Date End Date Priyanka Smith MD [address] [facility] [place] [address] PCP - General Family Medicine 12/22/17 Regulo Mendoza MD [address] [facility] [place] [address] Primary Staff Physician Nephrology 06/12/21 Rn Hemo Dialysis Relationship Specialty Start Date End Date Priyanka Smith MD [address] [facility] [place] [address] PCP - General Family Medicine 12/22/17 Regulo Mendoza MD [address] [place] [address] Primary Staff Physician Nephrology 06/12/21 Rn Hemo Dialysis Relationship Specialty Start Date End Date Priyanka Smith MD [address] [place] [address] PCP - General Family Medicine 12/22/17 Regulo Mendoza MD [address] [place] [address] Primary Staff Physician Nephrology 06/12/21 Rn Hemo Dialysis Relationship Specialty Start Date End Date Priyanka Smith MD [address] [place] [address] PCP - General Family Medicine 12/22/17 Regulo Mendoza MD [address] [place] [address] Primary Staff Physician Nephrology 06/12/21 Rn Hemo Dialysis Relationship Specialty Start Date End Date Priyanka Smith MD [address] [place] [address] PCP - General Family Medicine 12/22/17 Regulo Mendoza MD [address] [place] [address] Primary Staff Physician Nephrology 06/12/21 Rn Hemo Dialysis Relationship Specialty Start Date End Date Priyanka Smith MD [address] [place] [address] PCP - General Family Medicine 12/22/17 Regulo Mendoza MD [address] [place] [address] Primary Staff Physician Nephrology 06/12/21 Rn Hemo Dialysis Relationship Specialty Start Date End Date Priyanka Smith MD [address] [place] [address] PCP - General Family Medicine 12/22/17 Regulo Mendoza MD [address] [place] [address] Primary Staff Physician Nephrology 06/12/21 Rn Hemo Dialysis Relationship Specialty Start Date End Date Priyanka Smith MD [address] [place] [address] PCP - General Family Medicine 12/22/17 Regulo Mendoza MD [address] [place] [address] Primary Staff Physician Nephrology 06/12/21 Rn Hemo Dialysis Relationship Specialty Start Date End Date Priyanka Smith MD [address] [place] [address] PCP - General Family Medicine 12/22/17 Regulo Mendoza MD [address] [place] [address] Primary Staff Physician Nephrology 06/12/21 Rn Hemo Dialysis Relationship Specialty Start Date End Date Priyanka Smith MD [address] [place] [address] PCP - General Family Medicine 12/22/17 Regulo Mendoza MD [address] [place] [address] Primary Staff Physician Nephrology 06/12/21 Rn Hemo Dialysis Relationship Specialty Start Date End Date Priyanka Smith MD [address] [place] [address] PCP - General Family Medicine 12/22/17 Regulo Mendoza MD [address] [place] [address] Primary Staff Physician Nephrology 06/12/21 Rn Hemo Dialysis Relationship Specialty Start Date End Date Priyanka Smith MD [address] [place] [address] PCP - General Family Medicine 12/22/17 Regulo Mendoza MD [address] [facility] [address] Primary Staff Physician Nephrology 06/12/21 Rn Hemo Dialysis Relationship Specialty Start Date End Date Priyanka Smith MD [address] [place] [address] PCP - General Family Medicine 12/22/17 Regulo Mendoza MD [address] [place] [address] Primary Staff Physician Nephrology 06/12/21 Rn Hemo Dialysis Relationship Specialty Start Date End Date Priyanka Smith MD [address] [place] [address] PCP - General Family Medicine 12/22/17 Regulo Mendoza MD [address] [place] [address] Primary Staff Physician Nephrology 06/12/21 Rn Hemo Dialysis Relationship Specialty Start Date End Date Priyanka Smith MD [address] [place] [address] PCP - General Family Medicine 12/22/17 Regulo Mendoza MD [address] [place], [place] 114301 Primary Staff Physician Nephrology 06/12/21 Rn Hemo Dialysis Relationship Specialty Start Date End Date Priyanka Smith MD [address] [place], [place] 149291 PCP - General Family Medicine 12/22/17 Regulo Mendoza MD [address] [place], [place] 237431 Primary Staff Physician Nephrology 06/12/21 Rn Hemo Dialysis Relationship Specialty Start Date End Date Priyanka Smith MD [address] [place], [place] 418681 PCP - General Family Medicine 12/22/17 Regulo Mendoza MD [address] [place], [place] 642581 Primary Staff Physician Nephrology 06/12/21 Rn Hemo Dialysis Relationship Specialty Start Date End Date Priyanka Smith MD [address] [place], [place] 203461 PCP - General Family Medicine 12/22/17 Regulo Mendoza MD [address] [place], [place] 433211 Primary Staff Physician Nephrology 06/12/21 Rn Hemo Dialysis Relationship Specialty Start Date End Date Priyanka Smith MD [address] [place], [place] 652471 PCP - General Family Medicine 12/22/17 Regulo Mendoza MD [address] [place], [place] 242351 Primary Staff Physician Nephrology 06/12/21 Rn Hemo Dialysis Relationship Specialty Start Date End Date Priyanka Smith MD [address] [place], [place] 324501 PCP - General Family Medicine 12/22/17 Regulo Mendoza MD [address] [place], [place] 109701 Primary Staff Physician Nephrology 06/12/21 Rn Hemo Dialysis Relationship Specialty Start Date End Date Priyanka Smith MD [address] [place], [place] 737641 PCP - General Family Medicine 12/22/17 Regulo Mendoza MD [address] [place], [place] 938531 Primary Staff Physician Nephrology 06/12/21 Rn Hemo Dialysis Relationship Specialty Start Date End Date Priyanka Smith MD [address] [place], [place] 516421 PCP - General Family Medicine 12/22/17 Regulo Mendoza MD [address] [place], [place] 725301 Primary Staff Physician Nephrology 06/12/21 Rn Hemo Dialysis Relationship Specialty Start Date End Date Priyanka Smith MD [address] [place], [place] 76376691 PCP - General Family Medicine 12/22/17 Regulo Mendoza MD [address] [place], [place] 612961 Primary Staff Physician Nephrology 06/12/21 Rn Hemo Dialysis Relationship Specialty Start Date End Date Priyanka Smith MD [address] [place], [place] 147851 PCP - General Family Medicine 12/22/17 Regulo Mendoza MD [address] [place] [address] Primary Staff Physician Nephrology 06/12/21 Rn Hemo Dialysis Relationship Specialty Start Date End Date Priyanka Smith MD [address] [place], [place] 276561 PCP - General Family Medicine 12/22/17 Regulo Mendoza MD [address] [place], [place] 456551 Primary Staff Physician Nephrology 06/12/21 Rn Hemo Dialysis Relationship Specialty Start Date End Date Priyanka Smith MD [address] [place], [place] 381971 PCP - General Family Medicine 12/22/17 Regulo Mendoza MD [address] [place], [place] 18474691 Primary Staff Physician Nephrology 06/12/21 Rn Hemo Dialysis Relationship Specialty Start Date End Date Priyanka Smith MD [address] [place], [place] 52052691 PCP - General Family Medicine 12/22/17 Reuglo Mendoza MD [address] [place], [place] 524171 Primary Staff Physician Nephrology 06/12/21 Rn Hemo Dialysis Relationship Specialty Start Date End Date Priyanka Smith MD [address] [place], [place] 287601 PCP - General Family Medicine 12/22/17 Regulo Mendoza MD [address] [place], [place] 60184691 Primary Staff Physician Nephrology 06/12/21 Rn Hemo Dialysis Relationship Specialty Start Date End Date Priyanka Smith MD [address] [place], [place] 327741 PCP - General Family Medicine 12/22/17 Regulo Mendoza MD [address] [place], [place] 004591 Primary Staff Physician Nephrology 06/12/21 Rn Hemo Dialysis Relationship Specialty Start Date End Date Priyanka Smith MD [address] [place], [place] 462721 PCP - General Family Medicine 12/22/17 Regulo Mendoza MD [address] [place], [place] 77982691 Primary Staff Physician Nephrology 06/12/21 Rn Hemo Dialysis Relationship Specialty Start Date End Date Priyanka Smith MD [address] [place], [place] 08776691 PCP - General Family Medicine 12/22/17 Regulo Mendoza MD [address] [place], [place] 184301 Primary Staff Physician Nephrology 06/12/21 Rn Hemo Dialysis Relationship Specialty Start Date End Date Priyanka Smith MD [address] [place], [place] 949241 PCP - General Family Medicine 12/22/17 Regulo Mendoza MD [address] [place] [address] Primary Staff Physician Nephrology 06/12/21 Rn Hemo Dialysis Relationship Specialty Start Date End Date Priyanka Smith MD [address] [place] [address] PCP - General Family Medicine 12/22/17 Regulo Mendoza MD [address] [place] [address] Primary Staff Physician Nephrology 06/12/21 Rn Hemo Dialysis Relationship Specialty Start Date End Date Priyanka Smith MD [address] [place], [place] 616551 PCP - General Family Medicine 12/22/17 Regulo Mendoza MD [address] [place], [place] 56720691 Primary Staff Physician Nephrology 06/12/21 Rn Hemo Dialysis Relationship Specialty Start Date End Date Priyanka Smith MD [address] [place] [address] PCP - General Family Medicine 12/22/17 Regulo Mendoza MD [address] [place] [address] Primary Staff Physician Nephrology 06/12/21 Rn Hemo Dialysis Relationship Specialty Start Date End Date Priyanka Smith MD [address] [place] [address] PCP - General Family Medicine 12/22/17 Regulo Mendoza MD [address] [place] [address] Primary Staff Physician Nephrology 06/12/21 Rn Hemo Dialysis Relationship Specialty Start Date End Date Priyanka Smith MD [address] [place], [place] 330271 PCP - General Family Medicine 12/22/17 Regulo Mendoza MD [address] [place], [place] 413811 Primary Staff Physician Nephrology 06/12/21 Rn Hemo Dialysis Relationship Specialty Start Date End Date Priyanka Smith MD [address] [place], [place] 823711 PCP - General Family Medicine 12/22/17 Regulo Mendoza MD [address] [place] [address] Primary Staff Physician Nephrology 06/12/21 Rn Hemo Dialysis Relationship Specialty Start Date End Date Priyanka Smith MD [address] [place], [place] 538451 PCP - General Family Medicine 12/22/17 Regulo Mendoza MD [address] [place] [address] Primary Staff Physician Nephrology 06/12/21 Rn Hemo Dialysis Relationship Specialty Start Date End Date Priyanka Smith MD [address] [place], [place] 141181 PCP - General Family Medicine 12/22/17 Regulo Mendoza MD [address] [place] [address] Primary Staff Physician Nephrology 06/12/21 Rn Hemo Dialysis Relationship Specialty Start Date End Date Priyanka Smith MD [address] [place], [place] 677111 PCP - General Family Medicine 12/22/17 Regulo Mendoza MD [address] [place], [place] 564871 Primary Staff Physician Nephrology 06/12/21 Rn Hemo Dialysis Relationship Specialty Start Date End Date Priyanka Smith MD [address] [place], [place] 367131 PCP - General Family Medicine 12/22/17 Regulo Mendoza MD [address] [place], [place] 743411 Primary Staff Physician Nephrology 06/12/21 Rn Hemo Dialysis Relationship Specialty Start Date End Date Priyanka Smith MD [address] [facility], [place] 833901 PCP - General Family Medicine 12/22/17 Regulo Mendoza MD [address] [place] [address] Primary Staff Physician Nephrology 06/12/21 Rn Hemo Dialysis Relationship Specialty Start Date End Date Priyanka Smith MD [address] [facility], [place] 796011 PCP - General Family Medicine 12/22/17 Regulo Mendoza MD [address] [place] [address] Primary Staff Physician Nephrology 06/12/21 Rn Hemo Dialysis Relationship Specialty Start Date End Date Priyanka Smith MD [address] [facility], [place] 313111 PCP - General Family Medicine 12/22/17 Regulo Mendoza MD [address] [facility], [place] 191071 Primary Staff Physician Nephrology 06/12/21 Rn Hemo Dialysis Relationship Specialty Start Date End Date Priyanka Smith MD [address] [facility], [place] 847191 PCP - General Family Medicine 12/22/17 Regulo Mendoza MD [address] [facility], [place] 568741 Primary Staff Physician Nephrology 06/12/21 Rn Hemo Dialysis Relationship Specialty Start Date End Date Priyanka Smith MD [address] [place], [place] 647101 PCP - General Family Medicine 12/22/17 Regulo Mendoza MD [address] [place] [address] Primary Staff Physician Nephrology 06/12/21 Rn Hemo Dialysis Relationship Specialty Start Date End Date Priyanka Smith MD [address] [place], [place] 850791 PCP - General Family Medicine 12/22/17 Regulo Mendoza MD [address] [place], [place] 377621 Primary Staff Physician Nephrology 06/12/21 Rn Hemo Dialysis Relationship Specialty Start Date End Date Priyanka Smith MD [address] [place], [place] 466201 PCP - General Family Medicine 12/22/17 Regulo Mendoza MD [address] [place], [place] 354661 Primary Staff Physician Nephrology 06/12/21 Rn Hemo Dialysis Relationship Specialty Start Date End Date Priyanka Smith MD [address] [place], [place] 541701 PCP - General Family Medicine 12/22/17 Regulo Mendoza MD [address] [place], [place] 140981 Primary Staff Physician Nephrology 06/12/21 Rn Hemo Dialysis Relationship Specialty Start Date End Date Priyanka Smith MD [address] [place], [place] 839711 PCP - General Family Medicine 12/22/17 Regulo Mendoza MD [address] [place] [address] Primary Staff Physician Nephrology 06/12/21 Rn Hemo Dialysis Relationship Specialty Start Date End Date Priyanka Smith MD [address] [place], [place] 625291 PCP - General Family Medicine 12/22/17 Regulo Mendoza MD [address] [place] [address] Primary Staff Physician Nephrology 06/12/21 Rn Hemo Dialysis Relationship Specialty Start Date End Date Priyanka Smith MD [address] [place], [place] 315541 PCP - General Family Medicine 12/22/17 Rn Hemo Dialysis Relationship Specialty Start Date End Date Priyanka Smith MD [address] [place], [place] 103981 PCP - General Family Medicine 12/22/17 Regulo Mendoza MD [address] [place], [place] 223371 Primary Staff Physician Nephrology 06/12/21 Rn Hemo Dialysis Relationship Specialty Start Date End Date Priyanka Smith MD [address] [place], [place] 289591 PCP - General Family Medicine 12/22/17 Regulo Mendoza MD [address] [place] [address] Primary Staff Physician Nephrology 06/12/21 Rn Hemo Dialysis Relationship Specialty Start Date End Date Priyanka Smith MD [address] [place], [place] 558191 PCP - General Family Medicine 12/22/17 Regulo Mendoza MD [address] [place] [address] Primary Staff Physician Nephrology 06/12/21 Rn Hemo Dialysis Relationship Specialty Start Date End Date Priyanka Smith MD [address] [place] [address] PCP - General Family Medicine 12/22/17 Regulo Mendoza MD [address] [place] [address] Primary Staff Physician Nephrology 06/12/21 Rn Hemo Dialysis Relationship Specialty Start Date End Date Priyanka Smith [address] [place] [address] PCP - General Family Medicine 03/04/24 Katherine Bowen MD [address] [place] [address] Surgeon Urology 03/05/24 Rn Hemo Dialysis Relationship Specialty Start Date End Date Priyanka Smith [address] [place] [address] PCP - General Family Medicine 03/04/24 Katherine Bowen MD [address] [facility] 3 [place] [address] Surgeon Urology 03/05/24 Rn Hemo Dialysis Relationship Specialty Start Date End Date Priyanka Smith [address] [place] [address] PCP - General Family Medicine 03/04/24 Katherine Bowen MD [address] [address] Surgeon Urology 03/05/24 Rn Hemo Dialysis Relationship Specialty Start Date End Date Priyanka Smith [address] [place] [address] PCP - General Family Medicine 03/04/24 Katherine Bowen MD [address] [address] Surgeon Urology 03/05/24 Rn Hemo Dialysis Relationship Specialty Start Date End Date Priyanka Smith [address] [place] [address] PCP - General Family Medicine 03/04/24 Katherine Bowen MD [address] [address] Surgeon Urology 03/05/24 Rn Hemo Dialysis Relationship Specialty Start Date End Date BeverlyPriyanka treadwell [address] [place] [address] PCP - General Family Medicine 03/04/24 Katherine Bowen MD [address] [address] Surgeon Urology 03/05/24 Audi Bae MD [address] [address] Surgeon Urology 03/13/24 Rn Hemo Dialysis Relationship Specialty Start Date End Date Priyanka Smith MD [address] [place], [place] 135321 PCP - General Family Medicine 12/22/17 Regulo Mendoza MD [address] [place] [address] Primary Staff Physician Nephrology 06/12/21 Rn Hemo Dialysis Relationship Specialty Start Date End Date Priyanka Smith MD [address] [place], [place] 880981 PCP - General Family Medicine 12/22/17 Regulo Mendoza MD [address] [place] [address] Primary Staff Physician Nephrology 06/12/21 Rn Hemo Dialysis Relationship Specialty Start Date End Date Priyanka Smith MD [address] [place], [place] 481811 PCP - General Family Medicine 12/22/17 Regulo Mendoza MD [address] [place], [place] 280081 Primary Staff Physician Nephrology 06/12/21 Rn Hemo Dialysis Relationship Specialty Start Date End Date Priyanka Smith MD [address] [place], [place] 45616691 PCP - General Family Medicine 12/22/17 Regulo Mendoza MD [address] [place] [address] Primary Staff Physician Nephrology 06/12/21 Rn Hemo Dialysis Relationship Specialty Start Date End Date Priyanka Smith [address] [place] [address] PCP - General Family Medicine 03/04/24 Katherine Bowen MD [address] [place] [address] Surgeon Urology 03/05/24 Audi Bae MD [address] [place] [address] Surgeon Urology 03/13/24 Rn Hemo Dialysis Relationship Specialty Start Date End Date Priyanka Smith [address] [place] [address] PCP - General Family Medicine 03/04/24 Katherine Bowen MD [address] [place] [address] Surgeon Urology 03/05/24 Audi Bae MD [address] [place] [address] Surgeon Urology 03/13/24 Phong Blake MD [address] [place] [address] Surgeon Urology 03/24/24 Rn Hemo Dialysis Relationship Specialty Start Date End Date Priyanka Smith MD [address] [place] [address] PCP - General Family Medicine 12/22/17 Regulo Mendoza MD [address] [place] [address] Primary Staff Physician Nephrology 06/12/21 Rn Hemo Dialysis Relationship Specialty Start Date End Date Priyanka Smith [address] [place], [place] 208181 PCP - General Family Medicine 03/04/24 Katherine Bowen MD 201 [facility] 3 [place] [address] Surgeon Urology 03/05/24 Audi Bae MD [address] [facility] [address] [place] [address] Surgeon Urology 03/13/24 Phong Blake MD [address] [facility] [address] [place] [address] Surgeon Urology 03/24/24 Rn Hemo Dialysis Relationship Specialty Start Date End Date Priyanka Smith MD [address] [place] [address] PCP - General Family Medicine 12/22/17 Regulo Mendoza MD [address] [place], [place] 998541 Primary Staff Physician Nephrology 06/12/21 Rn Hemo Dialysis Relationship Specialty Start Date End Date Priyanka Smith MD [address] [place], [place] 031221 PCP - General Family Medicine 12/22/17 Regulo Mendoza MD [address] [place] [address] Primary Staff Physician Nephrology 06/12/21 Rn Hemo Dialysis Relationship Specialty Start Date End Date Priyanka Smith MD [address] [place], [place] 657741 PCP - General Family Medicine 12/22/17 Regulo Mendoza MD [address] [place] [address] Primary Staff Physician Nephrology 06/12/21 Rn Hemo Dialysis Relationship Specialty Start Date End Date Priyanka Smith MD [address] [place] [address] PCP - General Family Medicine 12/22/17 Regulo Mendoza MD [address] [place] [address] Primary Staff Physician Nephrology 06/12/21 Jacqueline Valadez APRN.EMPLOYMENT SERVICES DIRECTOR [address] [place] [address] Brake Operator Family Medicine 04/23/24 Juwan Land APRN.EMPLOYMENT SERVICES DIRECTOR [address] [place] [address] Brake Operator Family Medicine 05/02/24 Rn Hemo Dialysis Relationship Specialty Start Date End Date Priyanka Smith MD [address] [place], [place] 83552425 [phone] PCP - General Family Medicine 12/22/17 Regulo Mendoza MD [address] [place] [address] Primary Staff Physician Nephrology 06/12/21 Jacqueline Valadez APRN.EMPLOYMENT SERVICES DIRECTOR [address] [place] [address] Brake Operator Family Medicine 04/23/24 Juwan Land APRN.EMPLOYMENT SERVICES DIRECTOR [address] [place] [address] [facility] Rn Hemo Dialysis Relationship Specialty Start Date End Date Priyanka Smith MD [address] [place] [address] PCP - General Family Medicine 12/22/17 Regulo Mendoza MD [address] [place] [address] Primary Staff Physician Nephrology 06/12/21 Jacqueline Valadez APRN.EMPLOYMENT SERVICES DIRECTOR [address] [place] [address] Brake Operator Family Medicine 04/23/24 Juwan Land APRN.EMPLOYMENT SERVICES DIRECTOR [address] [place] [address] [facility] Rn Hemo Dialysis Relationship Specialty Start Date End Date Priyanka Smith MD [address] [place] [address] PCP - General Family Medicine 12/22/17 Regulo Mendoza MD [address] [place] [address] Primary Staff Physician Nephrology 06/12/21 Jacqueline Valadez APRN.EMPLOYMENT SERVICES DIRECTOR [address] [place] [address] Brake Operator Family Medicine 04/23/24 Juwan Land APRN.EMPLOYMENT SERVICES DIRECTOR [address] [place] [address] [facility] Rn Hemo Dialysis Relationship Specialty Start Date End Date Priyanka Smith MD [address] [place] [address] PCP - General Family Medicine 12/22/17 Regulo Mendoza MD [address] [place] [address] Primary Staff Physician Nephrology 06/12/21 Jacqueline Valadez APRN.EMPLOYMENT SERVICES DIRECTOR [address] [place] [address] Brake Operator Family Medicine 04/23/24 Juwan Land APRN.EMPLOYMENT SERVICES DIRECTOR [address] [place] [address] [facility] 05/[facility]/24 Rn Hemo Dialysis Relationship Specialty Start Date End Date Priyanka Smith MD [address] [place] [address] PCP - General Family Medicine 12/22/17 Regulo Mendoza MD [address] [place] [address] Primary Staff Physician Nephrology 06/12/21 Jacqueline Valadez APRN.EMPLOYMENT SERVICES DIRECTOR [address] [place] [address] Brake Operator Family Medicine 04/23/24 Juwan Land APRN.EMPLOYMENT SERVICES DIRECTOR [address] [place] [address] Brake Operator [facility] 05/02/24 Rn Hemo Dialysis Relationship Specialty Start Date End Date Priyanka Smith MD [address] [place] [address] PCP - General Family Medicine 12/22/17 Regulo Mendoza MD [address] [place] [address] Primary Staff Physician Nephrology 06/12/21 Jacqueline Valadez APRN.EMPLOYMENT SERVICES DIRECTOR [address] [place] [address] Brake Operator Family [facility] 04/23/24 Juwan Land APRN.EMPLOYMENT SERVICES DIRECTOR [address] [place] [address] Brake Operator [facility] 05/02/24 Rn Hemo Dialysis Relationship Specialty Start Date End Date Priyanka Smith MD [address] [place] [address] PCP - General Family Medicine 12/22/17 Regulo Mendoza MD [address] [place] [address] Primary Staff Physician Nephrology 06/12/21 Jacqueline Valadez APRN.EMPLOYMENT SERVICES DIRECTOR [address] [facility] [place] [address] [facility] 04/23/24 Juwan Land APRN.EMPLOYMENT SERVICES DIRECTOR [address] [facility] [place] [address] [facility] 05/02/24 Rn Hemo Dialysis Relationship Specialty Start Date End Date Priyanka Smith MD [address] [facility] [place] [address] PCP - General Family Medicine 12/22/17 Regulo Mendoza MD [address] [place] [address] Primary Staff Physician Nephrology 06/12/21 Jacqueline Valadez APRN.EMPLOYMENT SERVICES DIRECTOR [address] [place] [address] [facility] 04/23/24 Juwan Land APRN.EMPLOYMENT SERVICES DIRECTOR [address] [place] [address] [facility] 05/02/24 Rn Hemo Dialysis Relationship Specialty Start Date End Date Priyanka Smith MD [address] [place] [address] PCP - General Family Medicine 12/22/17 Regulo Mendoza MD [address] [place] [address] Primary Staff Physician Nephrology 06/12/21 Jacqueline Valadez APRN.EMPLOYMENT SERVICES DIRECTOR [address] [place] [address] [facility] 04/23/24 Juwan Land APRN.EMPLOYMENT SERVICES DIRECTOR [address] [place] [address] [facility] 05/02/24 Rn Hemo Dialysis Relationship Specialty Start Date End Date Priyanka Smith MD [address] [place], [place] 825151 PCP - General Family Medicine 12/22/17 Regulo Mendoza MD [address] [place] [address] Primary Staff Physician Nephrology 06/12/21 Jacqueline Valadez APRN.EMPLOYMENT SERVICES DIRECTOR [address] [place] [address] [facility] 04/23/24 Juwan Land APRN.EMPLOYMENT SERVICES DIRECTOR [address] [place] [address] [facility] 05/02/24 Rn Hemo Dialysis Relationship Specialty Start Date End Date Priyanka Smith MD [address] [place], [place] 544461 PCP - General Family Medicine 12/22/17 Regulo Mendoza MD [address] [place] [address] Primary Staff Physician Nephrology 06/12/21 Jacqueline Valadez APRN.EMPLOYMENT SERVICES DIRECTOR [address] [place] [address] [facility] 04/23/24 Juwan Land APRN.EMPLOYMENT SERVICES DIRECTOR [address] [place] [address] [facility] 05/02/24 Rn Hemo Dialysis Relationship Specialty Start Date End Date Priyanka Smith MD [address] [place] [address] PCP - General Family Medicine 12/22/17 Regulo Mendoza MD [address] [place] [address] Primary Staff Physician Nephrology 06/12/21 Jacqueline Valadez APRN.EMPLOYMENT SERVICES DIRECTOR [address] [place] [address] [facility] 04/23/24 Juwan Land APRN.EMPLOYMENT SERVICES DIRECTOR [address] [place] [address] [facility] 05/02/24 Rn Hemo Dialysis Relationship Specialty Start Date End Date Priyanka Smith MD [address] [place], [place] 327771 [phone] PCP - General Family Medicine 12/22/17 Regulo Mendoza MD [address] [place] [address] Primary Staff Physician Nephrology 06/12/21 Jacqueline Valadez APRN.EMPLOYMENT SERVICES DIRECTOR [address] [place] [address] [facility] 04/[facility]24 Juwan Land APRN.EMPLOYMENT SERVICES DIRECTOR [address] [place] [address] [facility] Rn Hemo Dialysis Relationship Specialty Start Date End Date Priyanka Smith MD [address] [place] [address] PCP - General Family Medicine 12/22/17 Regulo Mendoza MD [address] [place] [address] Primary Staff Physician Nephrology 06/12/21 Jacqueline Valadez APRN.EMPLOYMENT SERVICES DIRECTOR [address] [place] [address] [facility] 04/23/24 Juwan Land APRN.EMPLOYMENT SERVICES DIRECTOR [address] [place] [address] [facility] 05/02/24 Rn Hemo Dialysis Relationship Specialty Start Date End Date Priyanka Smith MD [address] [place] [address] PCP - General Family Medicine 12/22/17 Regulo Mendoza MD [address] [place] [address] Primary Staff Physician Nephrology 06/12/21 Jacqueline Valadez APRN.EMPLOYMENT SERVICES DIRECTOR [address] [place] [address] Brake Operator [facility] 04/23/24 Juwan Land APRN.EMPLOYMENT SERVICES DIRECTOR [address] [place] [address] Brake Operator [facility] 05/02/24 Rn Hemo Dialysis Relationship Specialty Start Date End Date Priyanka Smith MD [address] [place] [address] PCP - General Family Medicine 12/22/17 Regulo Mendoza MD [address] [place] [address] Primary Staff Physician Nephrology 06/12/21 Jacqueline Valadez APRN.EMPLOYMENT SERVICES DIRECTOR [address] [place] [address] Brake Operator [facility] 04/23/24 Juwan Land APRN.EMPLOYMENT SERVICES DIRECTOR [address] [place] [address] Brake Operator [facility] 05/02/24 Rn Hemo Dialysis Relationship Specialty Start Date End Date Priyanka Smith MD [address] [place] [address] PCP - General Family Medicine 12/22/17 Regulo Mendoza MD [address] [place] [address] Primary Staff Physician Nephrology 06/12/21 Jacqueline Valadez APRN.EMPLOYMENT SERVICES DIRECTOR [address] [place] [address] Bra[facility] 04/23/24 Juwan Land APRN.EMPLOYMENT SERVICES DIRECTOR [address] [place] [address] Brake Operator [facility] 05/02/24 Rn Hemo Dialysis Relationship Specialty Start Date End Date Priyanka Smith MD [address] [place] [address] PCP - General Family Medicine 12/22/17 Regulo Mednoza MD [address] [place] [address] Primary Staff Physician Nephrology 06/12/21 Jacqueline Valadez APRN.EMPLOYMENT SERVICES DIRECTOR [address] [place] [address] Brake Operator [facility] 04/23/24 Juwan Land APRN.EMPLOYMENT SERVICES DIRECTOR [address] [place] [address] Brake Operator [facility] 05/02/24 Rn Hemo Dialysis Relationship Specialty Start Date End Date Priyanka Smith MD [address] [place] [address] PCP - General Family Medicine 12/22/17 Regulo Mendoza MD [address] [place] [address] Primary Staff Physician Nephrology 06/12/21 Jacqueline Valadez APRN.EMPLOYMENT SERVICES DIRECTOR [address] [place] [address] Brake Operator [facility] 04/23/24 Juwan Land APRN.EMPLOYMENT SERVICES DIRECTOR [address] [place] [address] [facility] 05/02/[facility] Rn Hemo Dialysis Relationship Specialty Start Date End Date Priyanka Smith MD [address] [place] [address] PCP - General Family Medicine 12/22/17 Regulo Mendoza MD [address] [place] [address] Primary Staff Physician Nephrology 06/12/21 Jacqueline Valadez APRN.EMPLOYMENT SERVICES DIRECTOR [address] [place] [address] [facility] 04/23/24 Juwan Land APRN.EMPLOYMENT SERVICES DIRECTOR [address] [place] [address] [facility] 05/02/24 Rn Hemo Dialysis Relationship Specialty Start Date End Date Priyanka Smith MD [address] [place] [address] PCP - General Family Medicine 12/22/17 Regulo Mendoza MD [address] [place] [address] Primary Staff Physician Nephrology 06/12/21 Jacqueline Valadez APRN.EMPLOYMENT SERVICES DIRECTOR [address] [place] [address] Brake Operator [facility] 04/23/24 Juwan Land APRN.EMPLOYMENT SERVICES DIRECTOR [address] [place] [address] Brake Operator [facility] 05/02/24 Rn Hemo Dialysis Relationship Specialty Start Date End Date Priyanka Smith MD [address] [place] [address] PCP - General Family Medicine 12/22/17 Regulo Mendoza MD [address] [place] [address] Primary Staff Physician Nephrology 06/12/21 Jacqueline Valadez APRN.EMPLOYMENT SERVICES DIRECTOR [address] [place] [address] Brake Operator [facility] 04/23/24 Juwan Land [employer].EMPLOYMENT SERVICES DIRECTOR [address] [place] [address] Brake Operator [facility] 05/02/24 Rn Hemo Dialysis Relationship Specialty Start Date End Date Priyanka Smith MD [address] [place] [address] PCP - General Family Medicine 12/22/17 Regulo Mendoza MD [address] [place] [address] Primary Staff Physician Nephrology 06/12/21 Jacqueline Valadez [employer].EMPLOYMENT SERVICES DIRECTOR [address] [place] [address] Brake Operator [facility] 04/23/24 Juwan Land APRN.EMPLOYMENT SERVICES DIRECTOR [address] [place] [address] Bra[facility] 05/02/24 Rn Hemo Dialysis Relationship Specialty Start Date End Date Priyanka Smith MD [address] [place] [address] PCP - General Family Medicine 12/22/17 Regulo Mendoza MD [address] [facility] [place] [address] Primary Staff Physician Nephrology 06/12/21 Jacqueline Valadez [employer].EMPLOYMENT SERVICES DIRECTOR [address] [place] [address] Brake Operator [facility] 04/23/24 Juwan Land APRN.EMPLOYMENT SERVICES DIRECTOR [address] [place] [address] Brake Operator [facility] 05/02/24 Rn Hemo Dialysis Relationship Specialty Start Date End Date Priyanka Smith MD [address] [place] [address] PCP - General Family Medicine 12/22/17 Regulo Mendoza MD [address] [place] [address] Primary Staff Physician Nephrology 06/12/21 Jacqueline Valadez [employer].EMPLOYMENT SERVICES DIRECTOR [address] [place] [address] Brake Operator [facility] 04/23/24 Juwan Land [employer].EMPLOYMENT SERVICES DIRECTOR [address] [place] [address] Brake Operator [facility] 05/02/24 Rn Hemo Dialysis Relationship Specialty Start Date End Date Priyanka Smith MD [address] [place] [address] PCP - General Family Medicine 12/22/17 Regulo Mendoza MD [address] [place] [address] Primary Staff Physician Nephrology 06/12/21 Jacqueline Valadez, [employer].EMPLOYMENT SERVICES DIRECTOR [address] [place] [address] Brake Operator [facility] 04/23/24 Juwan Land [employer].EMPLOYMENT SERVICES DIRECTOR [address] [place] [address] Brake Operator [facility] 05/02/24 Rn Hemo Dialysis Relationship Specialty Start Date End Date Priyanka Smith MD [address] [place] [address] PCP - General Family Medicine 12/22/17 Regulo Mendoza MD [address] [place] [address] Primary Staff Physician Nephrology 06/12/21 Jacqueline Valadez [employer].EMPLOYMENT SERVICES DIRECTOR [address] [place] [address] Brake Operator [facility] 04/23/24 Juwan Land [employer].EMPLOYMENT SERVICES DIRECTOR [address] [place] [address] Brake Operator [facility] 05/02/24 Rn Hemo Dialysis Relationship Specialty Start Date End Date Priyanka Smith MD [address] [place] [address] PCP - General Family Medicine 12/22/17 Regulo Mendoza MD [address] [place] [address] Primary Staff Physician Nephrology 06/12/21 Juwan Land APRN.EMPLOYMENT SERVICES DIRECTOR [address] [place] [address] Brake Operator Family [facility] 05/02/24 Rn Hemo Dialysis Relationship Specialty Start Date End Date Priyanka Smith MD [address] [place], [place] 914491 PCP - General Family Medicine 12/22/17 Regulo Mendoza MD [address] [place] [address] Primary Staff Physician Nephrology 06/12/21 Juwan Land APRN.EMPLOYMENT SERVICES DIRECTOR [address] [place], [place] 408791 Brake Operator [facility] 05/02/24 Team Status: Active Member Role Status Dates Dr. Priyanka Smith MD Family Provider Active Dr. Priyanka Smith MD Primary Care Provider Active Team Status: Inactive Member Role Status Dates Dr. Priyanka Smith MD Primary Care Provider Active Start: July 07, 2024 End: July 07, 2024 Dr. Priyanka Smith MD Referring Provider Active Start: July 07, 2024 End: July 07, 2024 KAUSHAL Alas Attending Provider Active Start: July 07, 2024 End: July 07, 2024 Team Status: Inactive Member Role Status Dates Dr. Priyanka Smith MD Primary Care Provider Active Start: October 11, 2024 End: October 11, 2024 Dr. Priyanka Smith MD Referring Provider Active Start: October 11, 2024 End: October 11, 2024 KAUSHAL Alas Attending Provider Active Start: October 11, 2024 End: October 11, 2024 Rn Hemo Dialysis Relationship Specialty Start Date End Date Priyanka Smith MD [address] [place], [place] 937751 PCP - General Family Medicine 12/22/17 Regulo Mendoza MD [address] [place] [address] Primary Staff Physician Nephrology 06/12/21 Jacqueline Valadez APRN.EMPLOYMENT SERVICES DIRECTOR [address] [place] [address] Brake Operator [facility] 04/23/24 09/27/24 Juwan Land APRN.EMPLOYMENT SERVICES DIRECTOR [address] [place] [address] [facility] Rn Hemo Dialysis Relationship Specialty Start Date End Date Priyanka Smith MD [address] [place] [address] PCP - General Family Medicine 12/22/17 Regulo Mendoza MD [address] [place] [address] Primary Staff Physician Nephrology 06/12/21 Jacqueline Valadez APRN.EMPLOYMENT SERVICES DIRECTOR [address] [place] [address] Brake Operator [facility] 04/23/24 09/27/24 Juwan Land APRN.EMPLOYMENT SERVICES DIRECTOR [address] [place] [address] Brake Operator [facility] 05/02/24 Rn Hemo Dialysis Relationship Specialty Start Date End Date Priyanka Smith MD [address] [place] [address] PCP - General Family Medicine 12/22/17 Regulo Mendoza MD [address] [place] [address] Primary Staff Physician Nephrology 06/12/21 Juwan Land APRN.EMPLOYMENT SERVICES DIRECTOR [address] [place] [address] Brake Operator [facility] 05/02/24 Rn Hemo Dialysis Relationship Specialty Start Date End Date Priaynka Smith MD [address] [place] [address] PCP - General Family Medicine 12/22/17 Regulo Mendoza MD [address] [place] [address] Primary Staff Physician Nephrology 06/12/21 Juwan Land APRN.EMPLOYMENT SERVICES DIRECTOR [address] [place] [address] Brake Operator [facility] 05/02/24 Rn Hemo Dialysis Relationship Specialty Start Date End Date Priyanka Smith MD [address] [place] [address] PCP - General Family Medicine 12/22/17 Regulo Mendoza MD [address] [place] [address] Primary Staff Physician Nephrology 06/12/21 Juwan Land APRN.EMPLOYMENT SERVICES DIRECTOR [address] [place] [address] Brake Operator [facility] 05/02/24 Rn Hemo Dialysis Relationship Specialty Start Date End Date Priyanka Smith MD [address] [place], [place] 010835 [phone] PCP - General Family Medicine 12/22/17 Regulo Mendoza MD [address] [place] [address] Primary Staff Physician Nephrology 06/12/21 Juwan Land APRN.EMPLOYMENT SERVICES DIRECTOR [address] [place] [address] Brake Operator [facility] 05/02/24 Rn Hemo Dialysis Relationship Specialty Start Date End Date Priyanka Smith MD [address] [place], [place] 131526 [phone] PCP - General Family Medicine 12/22/17 Regulo Mendoza MD [address] [place], [place] 503801 Primary Staff Physician Nephrology 06/12/21 Juwan Land APRN.EMPLOYMENT SERVICES DIRECTOR [address] [place], [place] 047332 [phone] Brake Operator [facility] 05/02/24 Team Status: Inactive Member Role Status Dates Dr. Priyanka Smith MD Primary Care Provider Active Start: November 08, 2024 End: November 08, 2024 Dr. Priyanka Smith MD Referring Provider Active Start: November 08, 2024 End: November 08, 2024 KAUSHAL Alas Attending Provider Active Start: November 08, 2024 End: November 08, 2024 Rn Hemo Dialysis Relationship Specialty Start Date End Date Priyanka Smith MD [address] [place], [place] 507503 [phone] PCP - General Family Medicine 12/22/17 Regulo Mendoza MD [address] [place] [address] Primary Staff Physician Nephrology 06/12/21 Juwan Land APRN.EMPLOYMENT SERVICES DIRECTOR [address] [place] [address] Brake Operator [facility] 05/02/24 Rn Hemo Dialysis Relationship Specialty Start Date End Date Priyanka Smith MD [address] [place] [address] PCP - General Family Medicine 12/22/17 Regulo Mendoza MD [address] [place] [address] Primary Staff Physician Nephrology 06/12/21 Juwan Land APRN.EMPLOYMENT SERVICES DIRECTOR [address] [place] [address] Brake Operator [facility] 05/02/24 Rn Hemo Dialysis Relationship Specialty Start Date End Date Priyanka Smith MD [address] [place], [place] 889944 [phone] PCP - General Family Medicine 12/22/17 Regulo Mendoza MD [address] [place] [address] Primary Staff Physician Nephrology 06/12/21 Jacqueline Valadez APRN.EMPLOYMENT SERVICES DIRECTOR [address] [place] [address] Brake Operator [facility] 04/23/24 09/27/24 Juwan Land APRN.EMPLOYMENT SERVICES DIRECTOR [address] [place] [address] [facility] Rn Hemo Dialysis Relationship Specialty Start Date End Date Priyanka Smith MD [address] [place] [address] PCP - General Family Medicine 12/22/17 Regulo Mendoza MD [address] [place] [address] Primary Staff Physician Nephrology 06/12/21 Juwan Land APRN.EMPLOYMENT SERVICES DIRECTOR [address] [place] [address] [facility] 05/02/24 Rn Hemo Dialysis Relationship Specialty Start Date End Date Priyanka Smith MD [address] [place] [address] PCP - General Family Medicine 12/22/17 Regulo Mendoza MD [address] [place] [address] Primary Staff Physician Nephrology 06/12/21 Jacqueline Valadez APRN.EMPLOYMENT SERVICES DIRECTOR [address] [place] [address] Brake Operator [facility] 04/23/24 09/27/24 Juwan Land APRN.EMPLOYMENT SERVICES DIRECTOR [address] [facility], [place] [address] [facility] 05/[facility]/24 Rn Hemo Dialysis Relationship Specialty Start Date End Date Priyanka Smith MD [address] [facility], [place] [address] PCP - General Family Medicine 12/22/17 Regulo Mendoza MD [address] [facility], [place] 7644[address] Primary Staff Physician Nephrology 06/12/21 Juwan Land APRN.EMPLOYMENT SERVICES DIRECTOR [address] [place], [place] [id number] [facility] 05/[facility]/24 Team Status: Active Member Role/Relationship Status Dates Dr. Gonzalo Day MD Primary Care Provider Acti ve Team Status: Inactive Member Role/Relationship Status Dates Dr. Priyanka Smith MD Primary Care Provider Active Start: October 11, 2024 End: October 11, 2024 Dr. Priyanka Smith MD Referring Provider Active Start: October 11, 2024 End: October 11, 2024 KAUSHAL Alas Attending Provider Active Start: October 11, 2024 End: October 11, 2024 Team Status: Inactive Member Role/Relationship Status Dates Dr. Priyanka Smith MD Primary Care Provider Active Start: November 08, 2024 End: November 08, 2024 Dr. Priyanka Smith MD Referring Provider Active Start: November 08, 2024 End: November 08, 2024 KAUSHAL Alas Attending Provider Active Start: November 08, 2024 End: November 08, 2024 Team Status: Inactive Member Role/Relationship Status Dates Dr. Aditya Cota DO Attending Provider Active Start: December 22, 2024 End: December 22, 2024 Dr. Gonzalo Day MD Primary Care Provider Acti ve Start: December 22, 2024 End: December 22, 2024 Dr. Gonzalo Day MD Referring Provider Active Start: December 22, 2024 End: December 22, 2024 Team Status: Active Member Role/Relationship Status Dates Dr. Aditya Cota DO Attending Provider Active Start: December 22, 2024 Dr. Aditya Cota DO Other Provider Active St art: December 22, 2024 Dr. Gonzalo Day MD Primary Care Provider Acti ve Start: December 22, 2024 Dr. Gonzalo Day MD Referring Provider Active Start: December 22, 2024 Rn Hemo Dialysis Relationship Specialty Start Date End Date Priyanka Smith MD [address] [place], [place] [id number] PCP - General Family Medicine 12/22/17 Regulo Mendoza MD [address] [place], [place] [address] Primary Staff Physician Nephrology 06/12/21 Juwan Land APRN.EMPLOYMENT SERVICES DIRECTOR [address] [place], [place] [id number] Brake Operator [facility] 05/02/24 Team Status: Inactive Member Role/Relationship Status Dates Dr. Gonzalo Day MD Primary Care Provider Acti ve Start: December 29, 2024 End: December 29, 2024 Dr. Gonzalo Day MD Referring Provider Active Start: December 29, 2024 End: December 29, 2024 KAUSHAL Alas Attending Provider Active Start: December 29, 2024 End: December 29, 2024 Team Status: Inactive Member Role/Relationship Status Dates Dr. Gonzalo Day MD Primary Care Provider Acti ve Start: December 29, 2024 End: December 29, 2024 KAUSHAL Alas Attending Provider Active Start: December 29, 2024 End: December 29, 2024 KAUSHAL Alas Referring Provider Active Start: December 29, 2024 End: December 29, 2024 Rn Hemo Dialysis Relationship Specialty Start Date End Date Priyanka Smith MD [address] [place], [place] [address]79[address] PCP - General Family Medicine 12/22/17 Regulo Mendoza MD [address] [place], [place] 769[address] Primary Staff Physician Nephrology 06/12/21 Juwan Land APRN.EMPLOYMENT SERVICES DIRECTOR [address] [place], [place] [id number] Brake Operator [facility] 05/02/24 Reason for Visit (unrecogniz ed section and content) Reason Comments PT Progress Note Specialty Diagnoses / Procedures Referred By Contac t Referred To Contact [facility] Diagnoses Overactive bladder Procedures CONSULT TO PHYSICAL THERAPY PHYSICAL THERAPY EVALUATION HIGH COMPLEX 45 MINS Tariq Brooks, [employer].EMPLOYMENT SERVICES DIRECTOR [facility] [address] [place] [address] Referral ID Status Reason Start Date Expiration Date Visits Requested Visits Authorized [id number] Authorized Auto-Generat ed Referral 05/17/2024 05/16/2025 99 99 Reason Comments Physical Therapy Reason Comments Follow Up Specialty Diagnoses / Procedures Referred By Contac t 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 Diagnoses OAB (overactive bladder) Procedures BOTULINUM TOXIN A PER 1 UNIT CYSTOURETHROSCOPY INJ CHEMODENERVATION BLADDER Wiley Benitez MD [address] [facility] [address] [place] [address] Crm Coordinator [facility] [address] [address] Referral ID Status Reason Start Date Expiration Date V isits Requested Visits Authorized [id number] Authorized 11/04/2023 11/02/2024 5 5 Reason Comments Spirometry Specialty Diagnoses / Procedures Referred By Contac t Referred To Contact [facility] Diagnoses NSIP (nonspecific interstitial pneumonia) ([facility] Procedures SPIROMETRY BASELINE ONLY SPIROMETRY WO BRONCHODILATOR Gumaro Cuenca MD [address] [place] [address] [facility] [place] [address] [place] [address] Referral ID Status Reason Start Date Expiration Date V isits Requested Visits Authorized [id number] Closed Auto-Generate d Referral 08/11/2021 03/13/2022 1 1 Reason Comments Established Patient Reason Comments UTI Reason Comments Orders Reason Onset Date Comments Refill Request 11/26/2021 Reason Comments Radiology US Specialty Diagnoses / Procedures Referred By Contac t Referred To Contact US IMAGING Diagnoses Cystocele, midline Urinary urgency Urinary frequency Procedures US FEMALE PELVIS TRANSVAG US TRANSVAGINAL Charis Lopez APRN.CN [address] [place] [address] Us Imaging Referral ID Status Reason Start Date Expiration Date V isits Requested Visits Authorized [id number] Closed Auto-Generate d Referral 11/26/2021 12/26/2022 1 [...] frequency Procedures CONSULT TO URO GYNECOLOGY OFFICE/OUTPATIENT [facility] MDM 60-74 MINUTES Charis Lopez APRN.CN [address] [place] [address] Referral ID Status Reason Start Date Expiration Date V isits Requested Visits Authorized [id number] Closed PCP Requested Referral Auto-Generated Referral 11/26/2021 [...] t Referred To Contact [facility] Diagnoses ILD (interstitial lung disease) ([facility]) Procedures SPIROMETRY BASELINE ONLY SPMTRY W/VC EXPIRATORY ANYA W/WO MXML VOL VNTJ Karen Alcantara MD [address] [place] [address] [facility] [address] [place] [address] Referral ID Status Reason Start Date Expiration Date V isits Requested Visits Authorized [id number] Closed Auto-Generate d Referral 10/30/2022 11/29/2023 1 1 Specialty Diagnoses / Procedures Referred By Contac t Referred To Contact [facility] Diagnoses ILD (interstitial lung disease) ([facility]) Procedures LUNG VOLUMES Karen Alcantara MD [address] [place] [address] [facility] [address] [place] [address] Referral ID Status Reason Start Date Expiration Date V isits Requested Visits Authorized [id number] Closed Auto-Generate d Referral 11/05/2022 05/16/2023 1 1 Reason Onset Date Comments Refill Request 11/25/2022 Reason Comments Anesthesia Consult Reason Onset Date Comments Refill Request 02/08/[address] Specialty Diagnoses / Procedures Referred By Contac t Referred To Contact CT IMAGING Diagnoses Gross hematuria Procedures CT UROGRAM WO/W IVCON CT ABD & PELVIS W/O CONTRST 1+ BODY John Billings MD [address] [place] [address] [place] [address] Referral ID Status Reason Start Date Expiration Date V isits Requested Visits Authorized [id number] Closed Auto-Generate d Referral 05/22/2022 07/31/2022 1 1 Specialty Diagnoses / Procedures Referred By Contac t Referred To Contact CT IMAGING Diagnoses Interstitial pulmonary disease (HCC) NSIP (nonspecific interstitial pneumonia) (HCC) Procedures CT CHEST WO IVCON DIAGNOSTIC COMPUTED TOMOGRAPHY THORAX W/O Karen Werner MD [address] [place] [address] [place] [address] Referral ID Status Reason Start Date Expiration Date V isits Requested Visits Authorized [id number] Closed Auto-Generate d Referral 10/13/2022 12/12/2022 1 1 Specialty Diagnoses / Procedures Referred By Contac t Referred To Contact CT IMAGING Diagnoses Lung nodules Procedures CT CHEST WO IVCON DIAGNOSTIC COMPUTED TOMOGRAPHY THORAX W/O Karen Werner MD [address] [place] [address] [place] [address] Referral ID Status Reason Start Date Expiration Date V isits Requested Visits Authorized [id number] Closed Auto-Generate d Referral 2022 05/25/2022 1 [...] WO IVCON DIAGNOSTIC COMPUTED TOMOGRAPHY THORAX W/O Karen Werner MD [address] 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 Diagnoses OAB (overactive bladder) Procedures BOTULINUM TOXIN A PER 1 UNIT CYSTOURETHROSCOPY INJ CHEMODENERVATION BLADDER Wiley Benitez MD [address] [facility] [address] [place] [address] Crm Coordinator [facility] [address] [facility] [address] [place] [address] Reason Comments Post-Op Visit Kidney stone Reason Comments New Patient Evaluation Specialty Diagnoses / Procedures Referred By Contac t Referred To Contact Neurology Diagnoses Tremor Procedures CONSULT TO NEUROLOGY OFFICE/OUTPATIENT [facility] 60 MINUTES Jacqueline Valadez APRN.EMPLOYMENT SERVICES DIRECTOR [address] [place] [address] Referral ID Status Reason Start Date Expiration Date V isits Requested Visits Authorized [id number] Closed PCP Requested Referral 10/14/2023 10/13/2024 1 1 Reason Comments Refill Request Reason Comments Results Labs Reason Comments Acute Visit Fall and wants to di scuss meds Reason Onset Date Comments Error (VOID this visit) 03/06/2024 Reason Onset Date Comments Hospital Follow-up 03/07/2024 Reason Onset Date Comments Procedure 03/15/2024 Reason Comments Hospital F/U Reason Comments Forms Skin Biopsy - C[facility] [employer] Reason Onset Date Comments Appointment 03/24/2024 Reason Onset Date Comments Forms/questionnaires 04/03/2024 Reason Comments Procedure Cysto/stent - pt sta neil alfonso eddy on urination, denies any other issues, distress or pain Reason Comments Appointment Patient Update Reason Comments Established Patient 6 month follow up NS IP Reason Comments bladder pain Reason Comments Adrenal Specialty Diagnoses / Procedures Referred By Contac t Referred To Contact Endocrinology Diagnoses 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 (HCC) 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 Procedures CONSULT TO ENDOCRINOLOGY OFFICE/OUTPATIENT [facility] 60 MINUTES Priyanka Smith MD [address] [place] [address] Referral ID Status Reason Start Date Expiration Date V isits Requested Visits Authorized [id number] Closed PCP Requested Referral 03/23/2024 03/23/2025 1 1 Reason Onset Date Comments Refill Request 05/22/2024 Reason Comments Non-Chemotherapy Treatment Reason Comments Acute Visit Bilat knee pain when getting up from sitting Reason Comments Tremor Specialty Diagnoses / Procedures Referred By Contac t Referred To Contact Diagnoses Dyskinesia, tardive Procedures PROVIDER ORDERED FOLLOW UP OFFICE/OUTPATIENT NEW [facility] 60 MINUTES Bogdan Roberts MD [address] [place] [address] Referral ID Status Reason Start Date Expiration Date V isits Requested Visits Authorized [id number] Closed PCP Requested Referral 01/13/2024 04/12/2024 1 1 Reason Comments Results Knee Xray Reason Comments Interstiticial cystitis Specialty Diagnoses / Procedures Referred By Contac t Referred To Contact CT IMAGING Diagnoses Interstitial pulmonary disease (HCC) NSIP (nonspecific interstitial pneumonia) (HCC) Procedures CT CHEST WO IVCON DIAGNOSTIC COMPUTED TOMOGRAPHY THORAX W/O Karen Werner MD [address] [place] [address] Ct Imaging [facility] Referral ID Status Reason Start Date Expiration Date V isits Requested Visits Authorized [id number] Closed Auto-Generate d Referral 06/12/2024 05/17/2025 1 1 Reason Comments Established Patient Follow-Up CT scan re sul Reason Onset Date Comments Refill Request 06/20/2024 Reason Comments New Pain Reason Comments Medicare Wellness Exam Reason Comments Bilateral arm pain Reason Comments Arm Pain Bilateral since 07/11 pain wraps around to back to shoulders Reason Comments Follow Up Hematuria Reason Comments Radiology US Specialty Diagnoses / [facility] IM[facility] Diagnoses Gross hematuria Nephrolithiasis Procedures US KIDNEY/BLADDER US RETROPERITONEAL REAL TIME W/IMAGE COMPLETE Maira Chen, BACK [employer].EMPLOYMENT SERVICES DIRECTOR [address] [place] [address] Phone: tel: fax: US IMAGING [facility]95 Referral ID Status Reason Start Date Expiration Date V isits Requested Visits Authorized [id number] Closed Auto-Generate d Referral 08/10/2024 09/08/2025 1 1 Reason Comments Fall Reason Onset Date Comments Results 09/01/2024 Reason Comments ACTH elevation Reason Onset Date Comments Results 09/11/2024 Reason Comments Fall 1 this week and [address] week - reports unsure if the fall last week if she hit her head. Reports pain on left side of head. Back pain is from fall today. Reason Onset Date Comments Refill Request 09/20/2024 Reason Comments Parkinsonism, unspecified Parkinsonism t ype (HCC) Reason Comments PT Eval Specialty Diagnoses / Procedures Referred By Contac t Referred To Contact [facility] Diagnoses NSIP (nonspecific interstitial pneumonitis) (HCC) Procedures SPIROMETRY BASELINE ONLY SPMTRY W/VC EXPIRATORY ANYA W/WO MXML VOL VNTJ Becca Mir [employer].EMPLOYMENT SERVICES DIRECTOR [address] [employer] [address] [address] Phone: tel: fax: [facility] [place] [address] [place] [address] Referral ID Status Reason Start Date Expiration Date V isits Requested Visits Authorized [id number] Closed Auto-Generate d Referral 06/20/2024 07/20/2025 1 1 Specialty Diagnoses / Procedures Referred By Contac t Referred To Contact [facility] Diagnoses NSIP (nonspecific interstitial pneumonitis) (HCC) Procedures LUNG VOLUMES Becca Mir APRN.EMPLOYMENT SERVICES DIRECTOR [address] [address] Phone: tel: fax: [facility] [address] [address] Referral ID Status Reason Start Date Expiration Date V isits Requested Visits Authorized [id number] Closed Auto-Generate d Referral 10/15/2024 05/16/2025 1 1 Specialty Diagnoses / Procedures Referred By Contac t Referred To Contact [facility] Diagnoses NSIP (nonspecific interstitial pneumonitis) (HCC) Procedures LUNG DIFFUSION CAPACITY (DLCO) DIFFUSING CAPACITY Becca Mir APRN.EMPLOYMENT SERVICES DIRECTOR [address] [employer] [address] [address] Phone: tel: fax: [facility] [address] [address] Referral ID Status Reason Start Date Expiration Date V isits Requested Visits Authorized [id number] Closed Auto-Generate d Referral 06/20/2024 07/20/2025 1 1 Reason Comments Established Patient NSIP Reason Onset Date Comments Refill Request 10/17/2024 Reason Comments Follow Up Reason Comments Patient Question Refill Request Reason Comments Parkinsonism, unspecified Parkinsonism t ype Specialty Diagnoses / Procedures Referred By Contac t Referred To Contact Diagnoses Parkinsonism, unspecified Parkinsonism type (HCC) Procedures PROVIDER ORDERED FOLLOW UP OFFICE/OUTPATIENT [facility] 60 MINUTES Bogdan Roberts MD [address] [place] [address] Phone: tel: fax: Referral ID Status Reason Start Date Expiration Date V isits Requested Visits Authorized [id number] Closed PCP Requested Referral 08/03/2024 11/01/2024 1 1 Reason Comments Blood Pressure Saw Neurology on 11/16. Concerns of Orthostatic hypotension. States her BP dropped 20 points. Some intermittent dizziness with standing. Reason Comments Consult Reason Comments Recheck Reason Comments Follow Up Kidney Stones Reason Comments Blood Pressure Check 2 week follow up INFORMATION SOURCE (unrecogn ized section and content) DATE CREATED AUTHOR 02/01/2023 [facility] DATE CREATED AUTHOR AUTHOR'S ORGANIZ ATION 04/10/2024 [facility] DATE CREATED AUTHOR AUTHOR'S ORGANIZ ATION 08/07/2024 [facility] DATE CREATED AUTHOR AUTHOR'S ORGANIZ ATION 01/11/2025 [facility] DATE CREATED AUTHOR AUTHOR'S ORGANIZ ATION 01/20/2025 [facility] Scheduled Active and Recently Administ ered Medications (unrecognized section and content) Medication Order 03/07/2024 03/08/2024 03/09/2024 amitriptyline (Elavil) tablet 50 mg 50 mg, Oral, Nightly, First dose on 03/04/24 at 2100 0903 (MAR Hold - Provider: Automatic Transfer Provider - Reason: Patient not available)1116 (MAR Unhold - Provider: Automatic Transfer Provider)2122 (Given - Provider: Teri Alejo RN) 2055 (Given - Provider: Neelima Peng RN) aspirin EC tablet 81 mg 81 mg, Oral, Daily, First dose on 03/04/24 at 1615, Do not crush, chew, or split., On hold since 03/04/2024 at 1606 until manually unheld 0800 (Dose Auto Held) 0800 (Dose Auto Held) 0800 (Dose Auto Held)1954 (Unheld by provider - Provider: Automatic Discharge Provider) Calcium Carb-Cholecalciferol 500-5 MG-MCG per tablet 1 tablet 1 tablet, Oral, 2 times daily, First dose on Wed03/04/24 at 2100 0903 (JUL Hold - Provider: Automatic Transfer Provider - Reason: Patient not available)1116 (JUL Unhold - Provider: Automatic Transfer Provider)1152 (Given - Provider: Almita Burroughs RN)1459 (Not Given - Provider: Trina Crawley RN - Reason: Other)2123 (Given - Provider: Teri Alejo RN) 0832 (Given - Provider: Karen Garcia, RN)2055 (Given - Provider: Neelima Peng, JUAN) 0832 (Given - Provider: Karen Garcia, RN) cefTRIAXone (Rocephin) 1,000 mg in sodium chloride 0.9 % 50 mL IVPB Mini-Bag Plus (CANCELED) 1,000 mg, IntraVENous, at 100 mL/hr, Administer over 30 Minutes, Every 24 hours, First dose on Wed03/05/24 at 0400, Mini-Bag Plus bag, Suspected Indication (Select all that apply): Urinary Tract Infection 0640 (New Bag - Provider: Teri Alejo RN)0710 (Stopped - Provider: Almita Burroughs RN)0903 (JUL Hold - Provider: Automatic Transfer Provider - Reason: Patient not available)1116 (JUL Unhold - Provider: Automatic Transfer Provider) 0537 (New Bag - Provider: Teri Alejo RN)0607 (Stopped - Provider: Teri Alejo RN) cefTRIAXone (Rocephin) 2,000 mg in sodium chloride 0.9 % 50 mL IVPB Mini-Bag Plus 2,000 mg, IntraVENous, at 100 mL/hr, Administer over 30 Minutes, Every 24 hours, First dose (after last reorder) on Varsha 03/09/24 at 0600, For 8 days, Mini-Bag Plus bag, Suspected Indication (Select all that apply): Urinary Tract Infection 0544 (New Bag - Provider: Neelima Peng, JUAN)0614 (Stopped - Provider: Neelima Peng, RN) fluconazole (Diflucan) tablet 200 mg 200 mg, Oral, Daily, First dose on Wed03/07/24 at 1530, For 14 days, Coverage: Brad albicans, Infection Site: Oropharyngeal 1640 (Given - Provider: Trina Crawley RN) 0832 (Given - Provider: Karen Garcia, JUAN) 0832 (Given - Provider: Karen Garcia RN) fludrocortisone (Florinef) tablet 0.1 mg 0.1 mg, Oral, 2 times daily, First dose on 03/04/24 at 2130 0903 (JUL Hold - Provider: Automatic Transfer Provider - Reason: Patient not available)1116 ([facility] Unhold - Provider: Automatic Transfer Provider)1152 (Given - Provider: Almita Burroughs RN)2123 (Given - Provider: Teri Alejo RN) 0831 (Given - Provider: Karen Garcia RN)2057 (Given - Provider: Neelima Peng RN) 0832 (Given - Provider: Karen Garcia RN) heparin injection 5,000 Units 5,000 Units, SubCUTAneous, Every 8 hours scheduled (3 times per day), First dose on 03/04/24 at 2200 0641 (Given - Provider: Teri Alejo RN)0903 ([facility] Hold - Provider: Automatic Transfer Provider - Reason: Patient not available)1116 ([facility] Unhold - Provider: Automatic Transfer Provider)1353 (Given - Provider: Almita Burroughs RN)2122 (Given - Provider: Teri Alejo RN) 0537 (Given - Provider: Teri Alejo RN)1357 (Given - Provider: Karen Garcia, JUAN)2055 (Given - Provider: Neelima Peng RN) 0543 (Given - Provider: Neelima Peng RN)1427 (Given - Provider: Karen Garcia, JUAN) levothyroxine (Synthroid, Levoxyl) tablet 100 mcg 100 mcg, Oral, Daily before breakfast, First dose (after last modification) on 03/05/24 at 0600, Tube feeding (TF) interaction, obtain physician order to manage, recommend holding TF for 30 minutes before and after dose. 0638 (Given - Provider: Teri Alejo RN)0903 ([facility] Hold - Provider: Automatic Transfer Provider - Reason: Patient not available)1116 ([facility] Unhold - Provider: Automatic Transfer Provider) 0537 (Given - Provider: Teri Alejo RN) 0543 (Given - Provider: Neelima Peng, RN) melatonin tablet 3 mg 3 mg, Oral, Nightly, First dose on 03/04/24 at 2100 0903 (JUL Hold - Provider: Automatic Transfer Provider - Reason: Patient not available)1116 (MAR Unhold - Provider: Automatic Transfer Provider)2100 (Not Given - Provider: Teri Alejo RN - Reason: Patient/family refused) 2056 (Not Given - Provider: Neelima Peng RN - Reason: Patient/family refused) mycophenolate (Cellcept) capsule 1,000 mg 1,000 mg, Oral, Every morning, First dose (after last reorder) on 03/05/24 at 0900, On hold since 03/04/2024 at 1835 until manually unheld 0900 (Dose Auto Held - Provider: Maurilio Groves MD) 0900 (Dose Auto Held - Provider: Maurilio Groves MD) 0900 (Dose Auto Held - Provider: Maurilio Groves MD)1954 (Unheld by provider - Provider: Automatic Discharge Provider) mycophenolate (Cellcept) capsule 500 mg 500 mg, Oral, Every evening, First dose on 03/04/24 at 1800, On hold since 03/04/2024 at 1835 until manually unheld 1800 (Dose Auto Held - Provider: Maurilio Groves MD) 1800 (Dose Auto Held - Provider: Maurilio Groves MD) 1954 (Unheld by provider - Provider: Automatic Discharge Provider) pantoprazole (ProtoNix) 40 mg in sodium chloride (PF) 0.9 % 10 mL injection 40 mg, IntraVENous, Administer over 2 Minutes, Every 12 hours, First dose on Wed03/07/24 at 1600, Reconstitute with 10 ml NS. Vial expires 2 hrs after reconstitution. 1600 (Not Given - Provider: Trina Crawley RN - Reason: Other - Comment: just gave PO dose) 0532 (Given - Provider: eTri Alejo RN)1743 (Given - Provider: Karen Garcia RN) 0543 (Given - Provider: Neelima Peng, JUAN)1800 (Canceled Entry - Provider: Automatic Discharge Provider - Comment: Automatically canceled at discontinue of medication order) pantoprazole (ProtoNix) EC tablet 40 mg (CANCELED) 40 mg, Oral, 2 times daily before meals, First dose on 03/05/24 at 0700, Do not crush, chew, or split. 0638 (Given - Provider: Teri Alejo RN)0903 (JUL Hold - Provider: Automatic Transfer Provider - Reason: Patient not available)1116 (JUL Unhold - Provider: Automatic Transfer Provider)1458 (Given - Provider: Trina Crawley RN) predniSONE (Deltasone) tablet 5 mg 5 mg, Oral, Daily, First dose on 03/04/24 at 1615 0903 (JUL Hold - Provider: Automatic Transfer Provider - Reason: Patient not available)1116 (JUL Unhold - Provider: Automatic Transfer Provider)1152 (Given - Provider: Almita Burroughs RN) 0831 (Given - Provider: Karen Garcia, JUAN) 0832 (Given - Provider: Karen Garcia RN) sodium chloride 0.9% (NS) flush 5-40 mL 5-40 mL, IntraVENous, Every 12 hours, First dose on 03/04/24 at 1445, For Line Patency: Peripheral IV = 5 mL; Midline or Central Line = 10 mL/lumen. If following IV push medication, administer flush at same rate as the IV push. Flush volume is determined by type of infusion therapy being given. For non-viscous solutions use: Peripheral IV = 5 mL Midline or Central Line = 10 mL/lumen For viscous solutions (i.e. blood components, parenteral nutrition, contrast media, or after obtaining blood sample) use: Peripheral IV = 10 mL Midline or Central Line = 20 mL/lumen 0245 (Given - Provider: Teri Alejo RN)0903 (JUL Hold - Provider: Automatic Transfer Provider - Reason: Patient not available)1116 (JUL Unhold - Provider: Automatic Transfer Provider)1459 (Given - Provider: Trina Crawlye RN) 0245 (Given - Provider: Teri Alejo RN)1445 (Not Given - Provider: Karen Garcia RN - Reason: IV Fluids Infusing) 0245 (Not Given - Provider: Neelima Peng RN - Reason: IV Fluids Infusing)1445 (Not Given - Provider: Karen Garcia RN - Reason: Loss of IV access) Continuous Medication Order 03/07/2024 03/08/2024 03/09/2024 sodium bicarbonate 150 mEq in dextrose 5 % 1,000 mL infusion (CANCELED) 100 mL/hr, IntraVENous, Continuous, Starting on Tu03/07/24 at 1530, For 20 hours 1640 (New Bag - Provider: Trina Crawley, RN) 0831 (New Bag - Provider: Karen Garcia, RN)1055 (Rate/Dose Verify - Provider: Karen Garcia, RN)1200 (Stopped - Provider: Angie Talley RN) PRN Medication Order 03/07/2024 03/08/2024 03/09/2024 acetaminophen (Tylenol) suppository 650 mg(Linked Group 1) 650 mg, Rectal, Every 6 hours PRN, mild pain (1-3), fever, For temp greater than 100.4 F (38 C), Starting on 03/04/24 at 1428, Administer if oral route cannot be used. Maximum dose of acetaminophen is 4000 mg from all sources in 24 hours. 0903 ([facility] Hold - Provider: Automatic Transfer Provider - Reason: Patient not available)1116 ([facility] Unhold - Provider: Automatic Transfer Provider) acetaminophen (Tylenol) tablet 650 mg(Linked Group 1) 650 mg, Oral, Every 6 hours PRN, mild pain (1-3), fever, For temp greater than 100.4 F (38 C), Starting on 03/04/24 at 1428, Maximum dose of acetaminophen is 4000 mg from all sources in 24 hours. 0903 ([facility] Hold - Provider: Automatic Transfer Provider - Reason: Patient not available)1116 ([facility] Unhold - Provider: Automatic Transfer Provider) naloxone (Narcan) injection 0.4 mg 0.4 mg, IntraVENous, Every 5 min PRN, opioid reversal, respiratory depression, Starting on 03/05/24 at 1659, +++ For RR <10, pinpoint pupils, over sedation for opioid reversal - MUST notify electrification adviser provider immediately after first dose, may give IM or SQ if no IV access +++ 0903 ([facility] Hold - Provider: Automatic Transfer Provider - Reason: Patient not available)1116 ([facility] Unhold - Provider: Automatic Transfer Provider) polyethylene glycol (PEG) 3350 (Miralax) packet 17 g 17 g, Oral, Daily PRN, constipation, Starting on 03/04/24 at 1428, 1st line for treatment of constipation - give scheduled if no bowel movement in past 24 hours. 902 ([facility] Hold - Provider: Automatic Transfer Provider - Reason: Patient not available)111 ([facility] Unhold - Provider: Automatic Transfer Provider) promethazine (Phenergan) injection 6.25 mg 6.25 mg, IntraMUSCular, Every 6 hours PRN, nausea, vomiting, Starting on Tu03/07/24 at 1528, Only to be given as IM injection. sodium chloride 0.9 % infusion 5-250 mL/hr, IntraVENous, PRN, if patient receiving piggyback infusions and maintenance fluids are not ordered OR KVO fluids to protect IV site / prevent frequent line interruptions / long duration, Starting on 03/04/24 at 1428, For piggyback infusion, administer at same rate as piggyback for a total of 25 mL. Enter 25 mL into dose field and piggyback rate into rate field of order. If piggyback is infusing at a rate less than 100 mL/hr, enter 25 mL into dose field and 100 mL/hr into rate field of order. For KVO fluids, enter rate of 20 mL/hr or less into rate field of order. 902 ([facility] Hold - Provider: Automatic Transfer Provider - Reason: Patient not available)1115 ([facility] Unhold - Provider: Automatic Transfer Provider) sodium chloride 0.9% (NS) flush 5-40 mL 5-40 mL, IntraVENous, PRN, line care, After every IV line use, Starting on 03/04/24 at 1428, For Line Patency: Peripheral IV = 5 mL; Midline or Central Line = 10 mL/lumen. If following IV push medication, administer flush at same rate as the IV push. Flush volume is determined by type of infusion therapy being given. For non-viscous solutions use: Peripheral IV = 5 mL Midline or Central Line = 10 mL/lumen For viscous solutions (i.e. blood components, parenteral nutrition, contrast media, or after obtaining blood sample) use: Peripheral IV = 10 mL Midline or Central Line = 20 mL/lumen 09 ([facility] Hold - Provider: Automatic Transfer Provider - Reason: Patient not available)111 ([facility] Unhold - Provider: Automatic Transfer Provider) sucralfate (Carafate) tablet 1 g 1 g, Oral, 4 times daily PRN, as needed 1hr before meals and at bedtime for pain suspected 2/2 esophagitis and possible gastritis, Starting on 03/04/24 at 2233, Substituted for Sucralfate suspension. Give on an empty stomach (1 hr before meals, at bedtime). Separate all other meds by at least 2 hours (exception: antacids may be given only 30 minutes apart). 0903 (MAR Hold - Provider: Automatic Transfer Provider - Reason: Patient not available)1116 (MAR Unhold - Provider: Automatic Transfer Provider) Linked Groups Order Group 1: acetaminophen (Tylenol) tablet 650 mgJump to med 650 mg, Oral, Every 6 hours PRN, mild pain (1-3), fever, For temp greater than 100.4 F (38 C), Starting on 03/04/24 at 1428, Maximum dose of acetaminophen is 4000 mg from all sources in 24 hours. Or acetaminophen (Tylenol) suppository 650 mgJump to med 650 mg, Rectal, Every 6 hours PRN, mild pain (1-3), fever, For temp greater than 100.4 F (38 C), Starting on 03/04/24 at 1428, Administer if oral route cannot be used. Maximum dose of acetaminophen is 4000 mg from all sources in 24 hours. Scheduled Medication Order 03/21/2024 03/22/2024 03/23/2024 acetaminophen (Tylenol) tablet 1,000 mg (COMPLETED) 1,000 mg, Oral, Once, On Varsha 03/23/24 at 1130, For 1 dose, Preprocedure, Administer 60 minutes prior to surgery. 1134 (Given - Provid er: Nahomi Bender RN) famotidine (Pepcid) tablet 20 mg (COMPLETED)(Linked Group 1) 20 mg, Oral, Once, On Varsha 03/23/24 at 1130, For 1 dose, Preprocedure, IV or Oral 1134 (Given - Provid er: Nahomi Bender RN) phenazopyridine (Pyridium) tablet 200 mg 200 mg, Oral, Once, On Varsha 03/23/24 at 1645, For 1 dose, Recovery (only) 1645 (Canceled Entry - Provider: Automatic Discharge Provider - Comment: Automatically canceled at discontinue of medication order) sodium chloride 0.9% (NS) flush 10 mL 10 mL, IntraVENous, Every 12 hours scheduled (2 times per day), First dose on Varsha 03/23/24 at 2100, Recovery (only) sodium chloride 0.9% (NS) flush 5-40 mL 5-40 mL, IntraVENous, Every 12 hours, First dose on Varsha 03/23/24 at 1130, Preprocedure, For Line Patency: Peripheral IV = 5 mL; Midline or Central Line = 10 mL/lumen. If following IV push medication, administer flush at same rate as the IV push. Flush volume is determined by type of infusion therapy being given. For non-viscous solutions use: Peripheral IV = 5 mL Midline or Central Line = 10 mL/lumen For viscous solutions (i.e. blood components, parenteral nutrition, contrast media, or after obtaining blood sample) use: Peripheral IV = 10 mL Midline or Central Line = 20 mL/lumen 1130 (Canceled Entry - Provider: Automatic Discharge Provider - Comment: Automatically canceled at discontinue of medication order) Continuous Medication Order 03/21/2024 03/22/2024 03/23/2024 lactated Ringer's (LR) infusion 50 mL/hr, IntraVENous, Continuous, Starting on Varsha 03/23/24 at 1130, Preprocedure, Upon admission to sameday - please start iv if patient does not have iv access. Use 500ml NS for patients on dialysis. 1143 (New Bag - Prov ider: Nahomi Bender RN)1449 (Continued by Anesthesia - Provider: Casi Burroughs APRN - KNIFE OPERATOR)1619 (Stopped - Provider: HAILE Ruiz CRNA) lactated ringers infusion 125 mL/hr, IntraVENous, Continuous, Starting on Varsha 03/23/24 at 1645, Recovery (only) 1645 (Canceled Entry - Provider: Automatic Discharge Provider - Comment: Automatically canceled at discontinue of medication order) PRN Medication Order 03/21/2024 03/22/2024 03/23/2024 ALPRAZolam (Xanax) disintegrating tablet 0.25 mg 0.25 mg, Oral, Once PRN, anxiety, Starting on Varsha 03/23/24 at 1119, For 1 dose, Preprocedure, Please do not administer prior to obtaining consent and/or history and physical. diphenhydrAMINE (BENADryl) injection 12.5 mg 12.5 mg, IntraVENous, Once PRN, itching, Starting on Varsha 03/23/24 at 1633, For 1 dose, Recovery (only) fentaNYL (Sublimaze) injection 25 mcg 25 mcg, IntraVENous, Every 5 min PRN, moderate pain (4-6), Starting on Varsha 03/23/24 at 1633, For 3 doses, Recovery (only), Phase I and Phase II- Initial therapy for moderate pain (4-6). Restricted to a 90 minute time frame starting when the patient can verbally state their pain score. If after 2 doses the pain score does not decrease by more than one point, then call the provider. If oral meds are utilized, do not return to initial therapy medications. fentaNYL (Sublimaze) injection 50 mcg 50 mcg, IntraVENous, Every 5 min PRN, severe pain (7-10), Starting on Varsha 03/23/24 at 1633, For 3 doses, Recovery (only), Phase I and Phase II- Initial therapy for severe pain (7-10). Restricted to a 90 minute time frame starting when the patient can verbally state their pain score. If after 2 doses the pain score does not decrease by more than one point, then call the provider. If oral meds are utilized, do not return to initial therapy medications. hydrALAZINE (Apresoline) injection 5 mg(Linked Group 2) 5 mg, IntraVENous, Every 15 min PRN, high blood pressure, for SBP greater than 160 mmHg for 2 consecutive measurements taken from different sites, Starting on Varsha 03/23/24 at 1633, For 2 doses, Recovery (only), PRN for SBP > 160 for 2 consecutive measurements, and if one of the following conditions is met: 1) If IV labetolol is ineffective. 2) If HR is under 60. 3) If patient has heart block, COPD or asthma. If both labetalol and hydralazine ineffective, notify anesthesia provider. labetalol (Normodyne,Trandate) injection 5 mg(Linked Group 2) 5 mg, IntraVENous, Every 10 min PRN, high blood pressure, for SBP greater than 160 mmHg for 2 consecutive measurements taken from different sites., Starting on Varsha 03/23/24 at 1633, For 2 doses, Recovery (only), PRN for SBP >160 for 2 consecutive measurements, if HR is 60 or greater. If beta eladio is contraindicated (HR less than 60, heart block, COPD or asthma) use hydralazine IV order. ondansetron (Zofran) injection 4 mg 4 mg, IntraVENous, Once PRN, nausea, Starting on Varsha 03/23/24 at 1633, For 1 dose, Recovery (only), Initial antiemetic therapy. sodium chloride 0.9 % bolus 500 mL 500 mL, IntraVENous, at 1,000 mL/hr, Administer over 0.5 Hours, PRN, Anti-nausea, Starting on Varsha 03/23/24 at 1633, Recovery (only), Indications: Anti-nausea sodium chloride 0.9 % infusion 5-250 mL/hr, IntraVENous, PRN, if patient receiving piggyback infusions and maintenance fluids are not ordered OR KVO fluids to protect IV site / prevent frequent line interruptions / long duration, Starting on Varsha 03/23/24 at 1119, Preprocedure, For piggyback infusion, administer at same rate as piggyback for a total of 25 mL. Enter 25 mL into dose field and piggyback rate into rate field of order. If piggyback is infusing at a rate less than 100 mL/hr, enter 25 mL into dose field and 100 mL/hr into rate field of order. For KVO fluids, enter rate of 20 mL/hr or less into rate field of order. sodium chloride 0.9 % infusion 5-250 mL/hr, IntraVENous, PRN, if patient receiving piggyback infusions and maintenance fluids are not ordered OR KVO fluids to protect IV site / prevent frequent line interruptions/ long duration, Starting on Varsha 03/23/24 at 1633, Recovery (only), For piggyback infusion, administer at same rate as piggyback for a total of 25 mL. Enter 25 mL into dose field and piggyback rate into rate field of order. If piggyback is infusing at a rate less than 100 mL/hr, enter 25 mL into dose field and 100 mL/hr into rate field of order. For KVO fluids, enter rate of 20 mL/hr or less into rate field of order. sodium chloride 0.9 % irrigation solution (CANCELED) As needed, Starting on Varsha 03/23/24 at 1507, Intraprocedure 1507 (Given - Provid er: Denver Callaway MD - Comment: BILATERAL URETERS) sodium chloride 0.9% (NS) flush 10 mL 10 mL, IntraVENous, PRN, line care, Starting on Varsha 03/23/24 at 1633, Recovery (only), After every IV line use sodium chloride 0.9% (NS) flush 5-40 mL 5-40 mL, IntraVENous, PRN, line care, After every IV line use, Starting on Varsha 03/23/24 at 1119, Preprocedure, For Line Patency: Peripheral IV = 5 mL; Midline or Central Line = 10 mL/lumen. If following IV push medication, administer flush at same rate as the IV push. Flush volume is determined by type of infusion therapy being given. For non-viscous solutions use: Peripheral IV = 5 mL Midline or Central Line = 10 mL/lumen For viscous solutions (i.e. blood components, parenteral nutrition, contrast media, or after obtaining blood sample) use: Peripheral IV = 10 mL Midline or Central Line = 20 mL/lumen sterile water irrigation solution (CANCELED) As needed, Starting on Varsha 03/23/24 at 1508, Intraprocedure 1508 (Given - Provid er: Denver Callaway MD) Linked Groups Order Group 1: famotidine (Pepcid) tablet 20 mg (COMPLETED)Jump to med 20 mg, Oral, Once, On Varsha 03/23/24 at 1130, For 1 dose, Preprocedure, IV or Oral Or famotidine (Pepcid) 20 mg in sodium chloride (PF) 0.9 % 10 mL injection (COMPLETED) 20 mg, IntraVENous, Administer over 2 Minutes, Once, On Varsha 03/23/24 at 1130, For 1 dose, Preprocedure, IV or Oral Group 2: labetalol (Normodyne,Trandate) injection 5 mgJump to med 5 mg, IntraVENous, Every 10 min PRN, high blood pressure, for SBP greater than 160 mmHg for 2 consecutive measurements taken from different sites., Starting on Varsha 03/23/24 at 1633, For 2 doses, Recovery (only), PRN for SBP >160 for 2 consecutive measurements, if HR is 60 or greater. If beta eladio is contraindicated (HR less than 60, heart block, COPD or asthma) use hydralazine IV order. Or hydrALAZINE (Apresoline) injection 5 mgJump to med 5 mg, IntraVENous, Every 15 min PRN, high blood pressure, for SBP greater than 160 mmHg for 2 consecutive measurements taken from different sites, Starting on Varsha 03/23/24 at 1633, For 2 doses, Recovery (only), PRN for SBP > 160 for 2 consecutive measurements, and if one of the following conditions is met: 1) If IV labetolol is ineffective. 2) If HR is under 60. 3) If patient has heart block, COPD or asthma. If both labetalol and hydralazine ineffective, notify anesthesia provider. Goals (unrecognized section and content) Goals may be documented in a n alternate sectionGoals may be documented in an alternate section FOR RECORDS PERTAINING TO PATIENTS WHO ARE [...] BE BASED ON THE PRIMARY CLINICAL RECORDS. [facility]. provides no warranty or guarantee of the accuracy or completeness of information in this document.
[2025-01-21] MEDS: 0.9% Normal Saline (1000mL) 1,000 ML 999 ML IV (20:24)
[2025-01-21 20:26] LABS: Differential Indicated SCAN CRITERIA MET
[2025-01-21 20:27] LABS: Red Cell Morphology NORM C+C NORMAL (NORM C&C)
[2025-01-21 20:36] LABS: AST(SGOT) 32 U/L (<=31); Alanine Aminotransfer ALT/SGPT < 5 U/L (<=34); Albumin, Serum 3.3 g/dL (3.4-4.8); Alkaline Phosphatase 102 U/L (35-104); Anion Gap 12 (5-15); BUN 32 mg/dL (4-19); BUN/Creat Ratio 15.5 RATIO (10-20); Calcium,Total 9.3 mg/dL (7.6-11.0); Carbon Dioxide 22.4 mmol/L (21.0-32.0); Chloride 98 mmol/L (98-108); Estimated Creatinine Clearance 27.29 ml/min (50-250); Globulin 2.8 g/dL (2.2-4.2); Glucose 157 mg/dL (70-99); Potassium 3.5 mmol/L (3.3-5.1)
--- NOTE | 2025-01-21 20:50 | US_ITS ---
PROCEDURE: TRANSVAGINAL NON- 01/21/2025 REASON FOR EXAM: VAGINAL BLEEDING TECHNIQUE: Procedure Code: USTVAG Modality: US Procedure: TRANSVAGINAL NON- COMPARISON: CT dated earlier on the same day. FINDINGS: The uterus measures 6.5 x 3.0 by 4.1 cm. A questionable subcentimeter fibroid may be present. The uterine cavity is fluid-filled, however the actual endometrium is not clearly identified or measured. The measured endometrial thickness is 12.1 mm, however this includes the fluid-filled cavity. Within the left adnexa, there is an oblong tubular shaped fluid-filled structure, concerning for a dilated fallopian tube. This may represent hydrosalpinx. Alternatively, this could represent a severely dilated ureter. A 7.1 x 5.8 x 5.8 cm fluid-filled structure within the midline of the pelvis may represent the urinary bladder, within which there is heterogeneous echogenic debris Neither ovary is visualized.. US/Transvaginal Non- IMPRESSION: 1. Josephine tubular shaped fluid-filled structure in the left adnexa. This coul d represent hydrosalpinx, however this might also represent a severely dilated ureter. 2. Fluid-filled structure in the midline of the pelvis may represent the urina ry bladder, within which there is heterogeneous echogenic debris. Consider further evaluation via cystoscopy. 3. Fluid-filled uterine cavity. This is atypical for the patient's age. The endometrium itself is not clearly identified or measured. 4. Questionable subcentimeter uterine fibroid. Reading Location: [id number]
--- NOTE | 2025-01-21 21:03 | CT_ITS ---
PROCEDURE: ABDOMEN/PELVIS W IV CONT ONLY N/A REASON FOR EXAM: VAGINAL BLEEDING TECHNIQUE: Procedure Code: [id number] Modality: CT Procedure: ABDOMEN/PELVIS W IV CONT ONLY Coronal and Sagittal reconstruction series were provided. CONTRAST: Please see CT data VOLUME: Please see CT mL One or more dose reduction techniques were used (e.g., Automated exposure control, adjustment of the mA and/or kV according to patient size, use of iterative reconstruction technique. RADIATION DOSE SUMMARY: CTDlvol: Please see CT mGy DLP: 882.18 mGycm COMPARISON: CT abdomen/pelvis March 03, 2024. The prior report is not available for review. FINDINGS: Study limitations: Lung bases: Trace amount of pleural fluid or pleural thickening at the visualized lung bases. There is some calcified pleural plaque at the right costophrenic angle. Ground-glass and reticular opacities at the visualized lung bases may be due to atelectasis, pulmonary parenchymal fibrotic changes or interstitial pneumonitis. Clinical correlation with symptoms. Liver: Hepatic length is 15.5 cm. Hepatic attenuation is consistent with mild steatosis. 3 mm hypodense hepatic lesion noted within the posterior segment of the right lobe, too small to further characterize. Clinical correlation with risk factors. Gallbladder/biliary: The gallbladder is not visualized. No significant biliary dilation. Pancreas: No pancreatic inflammation. No pancreatic ductal dilation. Spleen: The spleen is not enlarged. Adrenals: The adrenal glands are within normal limits. Kidneys/ureters: The kidneys appear edematous bilaterally with moderate to severe bilateral hydronephrosis. Hydronephrosis appears slightly worse than the prior exam. There is mild bilateral urothelial enhancement. Cause of hydronephrosis is indeterminate. No obstructive calculi are seen. Please see urinary bladder findings. Nonspecific bilateral perinephric stranding. Lobular contour of the kidneys. Areas of renal cortical thinning noted. Bilateral perinephric stranding. Any possibility of infection to be correlated with urinalysis and culture. 10 mm right lower pole renal cyst. Gastrointestinal: The visualized distal esophagus appears thick-walled and edematous. Clinical correlation for esophagitis. The stomach is not sufficiently distended to evaluate wall thickening. No appearance of the complete small bowel obstruction. Nonspecific fluid-filled loops of small bowel. No focal mesenteric inflammation. Portions of the colon and rectum are distended with fecal material up to 9 cm in diameter which could be correlated for constipation. No pericolonic inflammation. No evidence of acute diverticulitis. Colonic loops are redundant but do not appear to be involved by volvulus. Appendix: The appendix is not visualized and may have been removed. Peritoneal/retroperitoneal: No free intraperitoneal air. There is no free fluid. Vascular: The entire heart is not included on this exam. Visualized cardiac size is enlarged. No abdominal aortic aneurysm, dissection or retroperitoneal hemorrhage. Mild appearing atherosclerosis noted. Urinary bladder: The urinary bladder appears irregularly thick-walled. There is mild perivesical stranding with mucosal enhancement. Reticular density or enhancement noted within the urinary bladder. Findings may be secondary to infection containing bladder debris. Malignancy can not be ruled out. Inflammation/infection could be the cause of bilateral hydronephrosis, however stricture or neoplasm can not be ruled out. Urology consultation is advised for diagnosis. Direct visualization and soft tissue diagnosis as clinically appropriate. Correlation with hematuria and urinalysis. Reproductive: Anteverted uterus measuring 6.5 cm in length. Slight heterogeneity of the cervix. Correlation with Pap smear. The endometrial complex is not well characterized by this technique. The ovaries are not well assessed by this technique. If there are pelvic symptoms consider ultrasound. Soft tissues: No body wall hematoma or soft tissue emphysema. Left posterior gluteal electronic stimulator device noted. Osseous: Mild superior endplate compression fracture deformity at T12 is similar to the prior exam. Moderately severe superior endplate compression fracture deformity at L3 is new compared to the prior exam but of indeterminate immediate acuity. Clinical correlation is advised. Pathologic lesion can not be ruled out by this study. If the patient has a history of malignancy, consider further evaluation by MRI. CT/Abdomen/Pelvis W IV Cont ONLY IMPRESSION: Clinical correlation for constipation. Gastrointestinal findings discussed above. - Bilateral worsening moderate to severe hydronephrosis. Thick-walled abnormal appearance of the urinary bladder. Genitourinary findings, differential and recommendations discussed above. - Other findings discussed above in detail. Reading Location: [id number]
--- NOTE | 2025-01-21 22:46 | PCA ---
PT ACCEPTED ED TO [facility] [address]. DUFFY [id number] LOCAL SQUAD SET UP FOR TRANSPORT
--- NOTE | 2025-01-21 22:49 | PCA ---
LOCAL SQUAD SET UP FOR TRANSPORT, TALKED TO INGE HARRIS GIVEN 4 HRS. DID ASK TO OUTSOURCE.
[2025-01-22 00:22] VITALS: BP 121/73; PULSE 108; RESP 19; TEMP 37.6; O2SAT 95
[2025-01-22 01:00] VITALS: BP 134/70; PULSE 112; RESP 94; O2SAT 25
[2025-01-22 01:05] VITALS: BP 134/70; PULSE 109; RESP 22; TEMP 38.1; O2SAT 96
--- NOTE | 2025-01-22 01:05 | ED.RN ---
This RN rounding on pt at this time. pt denies and discomfort or concerns at this time, RN noticied pt's cheeks appeared flushed. Oral temp taken at 100.5, Dr. Mosher notified. Per MD stop blood transfusion and administer Tylenol.
--- NOTE | 2025-01-22 01:45 | ED.RN ---
RN informed Dr. Bailon of pt's fever occurring during blood transfusion and that pt's transfusion was turned off at this time. Pt received 1g of Tylenol and denied any symptoms besides fever. Per Dr. Bailon, due to pt only having mild fever with no other s/s, no further actions regarding transfusion reaction need to be taken at this time.
--- NOTE | 2025-01-22 03:08 | ED.RN ---
Report called to Tia MARTINEZ at [facility], questions/concerns answered.
[2025-01-22 03:13] VITALS: BP 121/73; PULSE 113; RESP 19; TEMP 37.5; O2SAT 98
== END 2025-01-22 02:42 | disposition short-term general hospital (02) ==
PROVIDERS: Emergency Provider Emergency Medicine; PCP Family Medicine; Visit Provider Emergency Medicine
DX: N93.9 Abnormal uterine and vaginal bleeding, unspecified (principal); D62 Acute posthemorrhagic anemia; I95.9 Hypotension, unspecified; E03.9 Hypothyroidism, unspecified; Z79.890 Hormone replacement therapy; Z90.49 Acquired absence of other specified parts of digestive tract; Z98.51 Tubal ligation status
CPT/HCPCS: 36430; 74177; 76830; 80053; 85025; 86850; 86900; 86901; 86920; 86921; 93005; 96360; 96361; 99285; P9016; Q9967; A4216; J2354

== ENCOUNTER 2025-02-16 05:53 | Day surgery (SDC) | payer MEDICARE, SELFPAY ==
--- NOTE | 2025-02-13 09:00 | PAT.ANESEVAL ---
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 When Was Last Pacemaker Check QUESTION #4 FULL TEXT: You/Your Family Experience fever (hyperthermia) with Anesthesia Last Oral Intake Last Oral intake: Last Oral Intake NPO since Meds taken in AM with sips of water? Meds patient instructed to take am of surgery PONV PONV - mortgage processing manager: PONV - mortgage processing manager Female Yes 02/12/25 13:10 HX of Motion Sickness Yes 02/12/25 13:10 HX of N/V After Surgery No 02/12/25 13:10 Non-Smoker Yes 02/12/25 13:10 Duration of Surgery greater No 02/12/25 13:10 than 60 minutes Number of Risk Factors 3 02/12/25 13:10 PONV Score Moderate Risk 02/12/25 13:10 Height & Weight Height & Weight: Anesthesia: Height & Weight Height 5 ft 5 in 12/22/24 12:21 Respiratory Assessment Respiratory Assessment - mortgage processing manager: Respiratory Tract Infection Hx - mortgage processing manager Hx Respiratory Tract Infection No 02/12/25 13:10 STOP Sleep Apnea STOP Sleep Apnea - mortgage processing manager: STOP Sleep Apnea - mortgage processing manager Hx Hypertension No: HYPOTENSION 02/12/25 13:10 Hx Sleep Apnea No 02/12/25 13:10 CPAP BIPAP Do you snore loudly (louder No 02/12/25 13:10 than talking or can be heard Do you often feel tired/ No 02/12/25 13:10 fatigued/ sleepy during daytime? Has anyone observed you stop No 02/12/25 13:10 breathing during sleep? STOP Results Negative 02/12/25 13:10 QUESTION #5 FULL TEXT : Do you snore loudly (louder than talking or can be heard through closed doors)? 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 Specify any problems FEVER 02/12/25 13:10 Hx of Preganancy in last 3 No 02/12/25 13:10 Months Nurse Filling Out Transfusion DSCHRIBER 02/12/25 13:10 & Questions: Date: 02/12/25 02/12/25 13:10 Time: 13:12 02/12/25 13:10 Patient unable to answer at this time (ie. confused, unrespo /Reproduction History /Reproductive History - mortgage processing manager: /Reproductive Hx- mortgage processing manager Hx Now Gestational Age (in weeks): EDC: Hx Hx Para Hx Section SAB No 02/12/25 13:10 PFSH Medical History (Updated 02/12/25 @ 13:23 by Lisette Hilton) Loss of hearing Walker as ambulation aid Low iron Injury of head and neck History of hiatal hernia Gastric reflux Back pain Parkinson's disease Orthostatic hypotension History of steroid therapy Wears glasses Post-menopausal Cancer Arthritis History of renal disease DVT (deep venous thrombosis) Easy bruising Syncope Dietary restriction History of diverticulitis Interstitial emphysema of lung Non-smoker History of edema Overactive bladder Intramural leiomyoma of uterus Esophageal dysmotility Abnormal Pap smear of vagina and vaginal HPV Positive P-ANCA titer Hypothyroid Home Medications ?Medication ?Instructions ?Recorded ?Last Taken ?Type aspirin 81 mg chewable tablet 81 mg PO DAILY@0800 06/28/18 12/21/24 History cholecalciferol (vitamin D3) 25 1,000 unit PO BID 06/28/18 12/21/24 History mcg (1,000 unit) tablet (Vitamin D3) mycophenolate mofetil 500 mg 500 mg PO BID 03/04/24 12/21/24 History tablet (CellCept) levothyroxine 100 mcg capsule 100 mcg PO QDAY 04/06/24 12/22/24 History ondansetron 4 mg disintegrating 4 mg PO Q8H PRN nausea and vomiting 04/06/24 Unknown History tablet Lactobacillus acidophilus 250 500 mmu cells PO DAILY 06/02/24 12/21/24 History million cell capsule (Probiotic Acidophilus) amitriptyline 50 mg tablet 100 mg PO QHS 07/07/24 12/21/24 History carbidopa 25 mg-levodopa 100 mg 1 tab PO TID 10/11/24 12/21/24 History tablet (Sinemet) carbidopa 25 mg tablet 25 mg PO TID 11/08/24 12/21/24 History multivitamin (Daily Multi-Vitamin 1 tab PO DAILY 12/19/24 12/21/24 History tablet) fludrocortisone 0.1 mg tablet 0.2 mg PO DAILY 12/29/24 Unknown History pantoprazole 20 mg tablet,delayed 20 mg PO QDAY #30 tabs 01/22/25 Unknown Rx release ferrous sulfate 325 mg (65 mg 325 mg PO DAILY 02/12/25 Unknown History iron) tablet (Iron (ferrous sulfate)) fludrocortisone 0.1 mg tablet 0.1 mg PO QHS 02/12/25 Unknown History Allergy/AdvReac Type Severity Reaction Status Date / [facility] Allergy Intermediate Rash Verified 02/12/25 13:06 erythromycin base AdvReac Intermediate Diarrhea Verified 02/12/25 13:06 azithromycin AdvReac Mild Diarrhea Verified 02/12/25 13:06 Family History Mother Thyroid disorder Hypertension Father Heart disease Hypertension COPD (chronic obstructive pulmonary disease) Surgical History (Updated 02/12/25 @ 13:23 by Lisette Hilton) History of hand surgery History of lithotripsy Hx of biopsy S/P laparoscopic appendectomy Hx of colonoscopy History of esophagogastroduodenoscopy (EGD) Hx of tubal ligation Hx of bladder repair surgery H/O thymectomy History of spinal fusion History of cholecystectomy History of colon resection Social History Smoking Status: Never smoker alcohol intake: current alcohol intake frequency: holidays/special occasions only Audit: Pertinent Findings Pertinent Findings EKG Perinent findings: 01/21/2025. Sinus tachycardia at 108 bpm. Minimal LVH. Nonspecific T wave abnormality. Additional pertinent findings: Patient has had elevated white counts for about the past year. Patient has also had elevated creatinine for the past year. Recommendation Anesthesia Recommendation Anesthesia recommendation: OPTIMIZED for anesthesia
[2025-02-16] VITALS (7 sets, daily range): BP systolic 103–132; BP diastolic 63–81; PULSE 77–84; RESP 16; TEMP 36.3–36.5; O2SAT 95–100; BMI 26.2
--- OUTSIDE RECORDS SUMMARY | 2025-02-16 06:01 | XMS RPT_ITS | CCD ---
Author Organization [facility] Care Team Providers Care Anthropology And Archeology Instructor Name Role Phone Priyanka Smith MD Primary Care Provider Regulo Mendoza MD Unavailable MATHEW YANG JR Referring Unavaila PRIYANKA Gilbert Primary Care Unavailable PRIYANKA SMITH Primary Care Unavailable MATHEW YANG JR Referring Unavaila PRIYANKA Gilbert Primary Care Unavailable PRIYANKA SMITH Primary Care Unavailable JOHN MG Attending Unavailable JOHN MG Admitting Unavailable Priyanka Smith MD Primary Care Provider Regulo Mendoza MD Unavailable Priyanka Smith MD Primary Care Provider Priyanka Smith Primary Care Provider Clarice BHATT, Katherine Holder Unavailable Audi Bae MD Unavailable Phong Blake MD Unavailable [place] DUST BOX TENDER.Jacqueline DAWSON Unavailable Amadou DUST BOX TENDER.Juwan DAWSON Unavailable MATHEW YANG JR Admitting Unavaila MATHEW Garcia JR Attending Unavaila MATHEW Garcia JR Referring Unavaila PRIYANKA Gilbert Primary Care Unavailable [place] DUST BOX TENDER.Jacqueline DAWSON Unavailable Unavail able [place] DUST BOX TENDER.Jacqueline DAWSON Unavailable Dr. Priyanka Smith MD Primary Care Provider [phone] Dr. Priyanka Smith MD Referring Provider Hilary Solares Attending Provider [facility] DUST BOX TENDER.SAMIR, Jacqueline Unavailable [facility] DUST BOX TENDER.SAMIR, Jacqueline Perez Unavailable Luis BHATT, Dr. Cooley Primary Care Provider [phone] Luis BHATT, Dr. Cooley Referring Provider Hilary Solares Attending Provider Cipriano ABARAC, Dr. Burgess Attending Provider Brown BHATT, Dr. Sánchez Primary Care Provider Brown BHATT, Dr. Sánchez Referring Provider Cipriano ABARCA, Dr. Burgess Other Provider Hilary Solares Referring Provider Nomi ABARCA, Dr. Cantrell Emergency Provider Reji BHATT, [facility] Unavailable Brown BHATT, Jasmyne Chopra Primary Care Provider Brown, Gonzalo Primary Care Unavailable Hilary Soto Attending Unavailable Hilary Soto Referring Unavailable Bursley, Gonzalo Primary Care Unavailable Friend, Aditya Attending Unavailable Elderbrock, Priyanka Primary Care Unavailable [employer] [place] Attending Unavailabl e Bursley, Gonzalo Primary Care Unavailable Michelle Mosher Attending Unavailable Bursley, Gonzalo Primary Care Unavailable Bursley, Gonzalo Referring Unavailable Friend, Aditya Attending Unavailable Bursley, Gonzalo Primary Care Unavailable [...] Primary Care Unavailable Elderbrock, Priyanka Referring Unavailable Hilary Soto Attending Unavailable Elderbrock, Priyanka Primary Care Unavailable Elderbrock, Priyanka Referring Unavailable Hilary Soto Attending Unavailable Elderbrock, Priyanka Primary Care Unavailable Elderbrock, Priyanka Referring Unavailable CiprianoJovann Attending Unavailable KATHERINE BOWEN Admitting Unavailable KATHERINE BOWEN Attending Unavailable ELDERBROCK, PRIYANKA Primary Care Unavailable ANTONY AWAD Referring Unavailable ELDERBROCK, PRIYANKA Primary Care Unavailable PHONG BLAKE Attending Unavailable ELDERBROCK, PRIYANKA Primary Care Unavailable NONE, PCP Referring Unavailable ELDERBROCK, PRIYANKA Primary Care Unavailable MAURILIO GROVES Admitting Unavailable JESSE DO Attending Unavailable STEVE, PEPITO Consulting Unavailable MICHELLE MOSHER Referring Unavailable ELDERBROCK, PRIYANKA Primary Care Unavailable MOSCHELLA, JENNIE Consulting Unavailable MOSCHELLA, JENNIE Admitting Unavailable SPIKE STRANGE Attending Unavailable KATHERINE BOWEN Consulting Unavailable SAM MACHAOD Consulting Unavailable STEVE, PEPITO Consulting Unavailable ELDERBROCK, PRIYANKA Mckay Primary Care Unavailable ELDERBROCK, PRIYANKA Mckay Primary Care Unavailable ELDERBROCK, PRIYANKA Mckay Primary Care Unavailable MAIRA CHEN Referring Unavailable TARIQ BROOKS Referring Unavailable EUFEMIA ANGLIN Attending Unavailable ELDERBROCK, PRIYANKA Lesli Primary Care Unavailable ELDERBROCK, PRIYANKA Mckay Primary Care Unavailable JONATHAN MONTERROSO Attending Unavailable ELDERBROCK, PRIYANKA Mckay Primary Care Unavailable ELDERBROCK, PRIYANKA Mckay Primary Care Unavailable ELDERPRIYANKA KELLY Attending Unavailable ELDERDEMIANCKPRIYANKA Primary Care Unavailable ELDERBROCKPRIYANKA Referring Unavailable ELDERBROCK, PRIYANKA Mckay Primary Care Unavailable ELDERBROCKPRIYANKA Attending Unavailable ELDERBROCKPRIYANKA Primary Care Unavailable LATHA CUEVAS Attending Unavaila ble ELDERBROCKPRIYANKA Primary Care Unavailable RIKA ADAM Attending Unavailable ELDERBROCK, PRIYANKA D Primary Care Unavailable JASMYNE DAY Referring Unavailab le ELDERDEMIANCKPRIYANKA Primary Care Unavailable STEVE, PEPITO Referring Unavailable ELDERBROCK PRIYANKA D Primary Care Unavailable JACQUELINE VALADEZ Attending Unavailabl e ELDERBROCKPRIYANKA D Primary Care Unavailable STEVE, PEPITO Referring Unavailable ELDERBROCK, PRIYANKA D Primary Care Unavailable RAUL JUAN Referring Unavailable ELDERBROCKPRIYANKA D Primary Care Unavailable GERMAN GRUBBS Attending Unavailable ELDERBROCK, PRIYANKA Mckay Primary Care Unavailable KAREN ALCANTARA Referring Unavailable KAREN ALCANTARA Attending Unavailable ELDERBROCK, PRIYANKA Mckay Primary Care Unavailable BECCA MIR Referring Unavailable ELDERBROCK, PRIYANKA Mckay Primary Care Unavailable BECCA MIR Referring Unavailable ELDERBROCK, PRIYANKA Mckay Primary Care Unavailable JACQUELINE VALADEZ Attending Unavailabl e SELF Referring Unavailable ELDERBROCK, PRIYANKA cMkay Primary Care Unavailable LATHA CUEVAS Referring Unavaila ble ELDERBROCK, PRIYANKA D Primary Care Unavailable WILEY BENITEZ Attending Unavailable ELDERBROCK, PRIYANKA Lesli Primary Care Unavailable SELF Referring Unavailable BOGDAN ROBERTS Referring Unavailable GEMMA ROBERTS Attending Unavailable ELDERDEMIANCKPRIYANKA Primary Care Unavailable ELDERBROCK, PRIYANKA Mckay Primary Care Unavailable JACQUELINE VALADEZ Referring Unavailabl e ELDERBROCK, PRIYANKA D Primary Care Unavailable JACQUELINE VALADEZ Attending Unavailabl e ELDERROLANDO, PRIYANKA Mckay Primary Care Unavailable ELDERPRIYANKA KELLY Primary Care Unavailable JASMYNE DAY Primary Care Unavailab WILEY Tellez Attending Unavailable LEANDRO VARGAS Attending Unavailable BARLEY, TARIQ Referring Unavailable ELDERBROCK, PRIYANKA Mckay Primary Care Unavailable ELDERBROCK, PRIYANKA Mckay Primary Care Unavailable LEANDRO VARGAS Attending Unavailable BARLEY, TARIQ Referring Unavailable ELDERBROCK, PRIYANKA Mckay Primary Care Unavailable LEANDRO VARGAS Attending Unavailable BARLEY, TARIQ Referring Unavailable ELDERBROCK, PRIYANKA Mckay Primary Care Unavailable LEANDRO VARGAS Attending Unavailable BARLEY, TARIQ Referring Unavailable MATHEW YANG JR Referring Unavaila ble ELDERBROCK, PRIYANKA Mckay Primary Care Unavailable CYNDI NAIK Attending Unavailable ELDERBROCK, PRIYANKA Mckay Primary Care Unavailable CHARIS LOPEZ Attending Unavailable ELDERBROCK, PRIYANKA Mckay Primary Care Unavailable ELDERBROCK, PRIYANKA Mkcay Primary Care Unavailable JUWAN LAND Referring Unavailable ELDERBROCK, PRIYANKA Mckay Primary Care Unavailable JUWAN LAND Attending Unavailable PKCKPRIYANKA Primary Care Unavailable AJSMYNE DAY Attending Unavailab PRIYANKA Malik Primary Care Unavailable BOGDAN ROBERTS Referring Unavailable GEMMA ROBERTS Attending Unavailable PRIYANKA SMITH Primary Care Unavailable GEMMA ROBERTS Attending Unavailable PRIYANKA SMITH Primary Care Unavailable JACQUELINE VALADEZ Referring Unavailabl e BECCA MIR Attending Unavailable ELDERDEMIANCK, PRIYANKA Mckay Primary Care Unavailable KAREN ALCANTARA Referring Unavailable PRIYANKA SMITH Primary Care Unavailable JASMYNE DAY Primary Care Unavailab le KAREN ALCANTARA Referring Unavailable BECCA MIR Referring Unavailable ELDERPRIYANKA KELLY Primary Care Unavailable KAREN ALCANTARA Referring Unavailable ELDERPRIYANKA KELLY Primary Care Unavailable KAREN ALCANTARA Referring Unavailable KAREN ALCANTARA Attending Unavailable PRIYANKA SMITH Primary Care Unavailable WILEY BENITEZ Attending Unavailable PRIYANKA SMITH Primary Care Unavailable JASMYNE DAY Primary Care Unavailab BECCA Vaughan Attending Unavailable JASMYNE DAY Primary Care Unavailab JASMYNE Cordero Attending Unavailab JASMYNE Cordero Attending Unavailab le PRIYANKA SMITH Primary Care Unavailable MATHEW YANG JR Attending Unavaila PRIYANKA Gilbert Primary Care Unavailable PEYTON DIAZ Attending Unavailable PRIYANKA SMITH Primary Care Unavailable MATHEW YANG JR Referring Unavaila ble PRIYANKA SMITH Primary Care Unavailable ELDERPRIYANKA KELLY Primary Care Unavailable CHARIS LOPEZ Referring Unavailable ELDERPRIYANKA KELLY Primary Care Unavailable MAIRA CHEN Referring Unavailable PRIYANKA SMITH Primary Care Unavailable MATHEW YANG JR Referring Unavaila MAIRA Briggs Attending Unavailable PRIYANKA SMITH Primary Care Unavailable BOGDAN ROBERTS Attending Unavailable PRIYANKA SMITH Primary Care Unavailable JASMYNE DAY Attending Unavailab lashell MEYERS Referring Unavailable PRIYANKA SMITH Primary Care Unavailable WILEY BENITEZ Attending Unavailable PRIYANKA SMITH Primary Care Unavailable RAUL JUAN Attending Unavailable RAUL JUAN Referring Unavailable PRIYANKA SMITH Primary Care Unavailable BECCA MIR Referring Unavailable JASS, LATHA LAWSON Attending Unavaila PRIYANKA Gilbert Primary Care Unavailable LEYLAM, LATHA LAWSON Referring Unavaila ble PRIYANKA SMITH Primary Care Unavailable JASS, LATHA LULU Attending Unavaila PRIAYNKA Gilbert Primary Care Unavailable ELDERPRIYANKA KELLY Referring Unavailable Allergies Allergy Classification Reported Allergen(s) Allergy Type Date of Onset Reaction(s) Facility Cetirizine (4 sources) Cetirizine Drug Allergy 08-07-19 15 Itching [facility] Macrolides (antibiotic) (4 sources) Erythromycin Drug Allergy 09-15-19 23 Diarrhea [facility] (20 sources) Cetirizine; Translations: [CETIRIZINE HCL] Drug Allergy 08-07-19 15 Itching [facility] (20 sources) Seasonal allergy; Translations: [SEASONAL ALLERGIES] Propensity to adverse reactions 08-14-19 10 Cough [facility] Work Phone: (20 sources) environmental [Other] Propensity to adverse reactions 12-29-19 07 [facility] Work Phone: (20 sources) Erythromycin; Translations: [ERYTHROMYCIN] Drug Allergy 09-15-19 23 Diarrhea [facility] (1 source) OTHER; Translations: [OTHER] Propensity to adverse reactions (disorder) 12-29-19 07 [facility] Other [facility] (20 sources) Azithromycin Drug Allergy 03-04-20 24 Diarrhea [facility] (15 sources) Seasonal allergy Environmental allergy 03-04-20 24 Other [facility] (20 sources) Amantadine; Translations: [AMANTADINE] Drug Allergy 08-04-19 Contraindicati [facility] Work Phone: (6 sources) Cetirizine Drug Allergy 06-06-19 [facility] (12 sources) ARIPiprazole; Translations: [ARIPIPRAZOLE] Drug Allergy 11-17-19 Contraindicati [facility] (12 sources) Haloperidol; Translations: [HALOPERIDOL] [facility]; Translations: [METOCLOPRAMIDE] [facility] OLANZ[facility]; Translations: [OLANZAPINE] Drug Allergy 11-17-19 Contraindicati [facility] (12 sources) Prochlorperazine ; Translations: [PROCHLORPERAZIN E] Drug Allergy 11-17-[address] [facility] Prometh[facility]; Translations: [PROMETHAZINE] Drug Allergy 11-17-19 Contraindicati [facility] (1 source) Azithromycin Drug Allergy 01-22-20 [facility] (1 source) Cetirizine Drug Allergy 01-22-20 [facility] (1 source) Erythromycin Drug Allergy 01-22-20 [facility] Repository Medications Current Medications Medication Drug Class(es) [...] 03/23/2024 5:22 PM EST 03/23/2024 03/27/2024 Active amoxicillin 875 mg / clavulanate 125 mg oral tablet (7 sources) Penicillin-class Antibacterial Start: 01-26-2025 End: 01-29-2025 take 1 tablet by mouth twice daily amoxicillin-clavulanate (Augmentin) 875-125 MG tablet Take 1 tablet by mouth 2 times daily for 5 doses. 5 tablet 01/26/2025 01/29/2025 Active Start: 08-12-2022 End: 08-19-2022 take 1 tablet by mouth twice daily amoxicillin-clavulanic acid (AUGMENTIN) 875-125 mg per tablet Take 1 tablet by mouth twice daily for 7 days. 14 tablet 0 08/12/2022 08/19/2022 Active Comment on above: Take 1 tablet by bradley twice daily for 7 days. carbidopa 25 mg oral tablet (20 sources) Aromatic Amino Acid Decarboxylation Inhibitor Start: End: take 1 tablet by mouth three times daily carbidopa (LODOSYN) 25 mg tab Take 1 tablet by mouth three times a day. 270 tablet 3 10/17/2024 Active cholecalciferol 0.025 mg oral tablet (6 sources) Vitamin D Start: 019 take 1 tablet by mouth twice daily Cholecalciferol (Vitamin D3) (Vitamin D3) 1,000 UNIT tablet Active 1000 U PO TWICE A DAY June 28, 2018 1:00am cosyntropin 0.25 mg injection (CORTROSYN) (20 sources) Start: 025 0.25 mg, INTRAMUSCULAR, NEEDED, Starting on Varsha 05/18/24 at 1153, Until Discontinued, ACTH stimulation test, Intramuscular administration: Reconstitute 0.25 mg with 1 mL of NS Intravenous administration: Reconstitute 0.25 mg with 1 mL of NS and further dilute in NS to a total volume of 2 to 5 mL Start: 05-18-2024 cosyntropin 0. 25 mg injection (CORTROSYN) docusate sodium 100 mg oral capsule (12 sources) Start: 01-22-2025 End: 01-26-2025 take 1 capsule by mouth twice daily docusate sodium 100 MG capsule Take 1 capsule (100 mg) by mouth 2 times daily. 01/25/2025 Active Start: 11-08-2024 End: 12-19-2024 take 1 capsule by mouth twice daily [...] Comment on above: Take 1 capsule by [facility] twice daily. doxycycline hyclate 100 mg oral tablet (1 source) Tetracycline-class Drug Start: 3 End: 3 take 1 tablet by mouth twice daily doxycycline (VIBRA-TABS) 100 mg tablet Indications: Bronchitis Take 1 tablet by mouth twice daily for 10 days. 20 tablet 0 08/20/2022 08/30/2022 Active Comment on above: Take 1 tablet by [facility] twice daily for 10 days. estradiol 0.1 mg/ml vaginal cream (20 sources) Estrogen Start: 5 End: 12-28-202 5 estradiol (ESTRACE) 0.01 % (0.1 mg/gram) [...] g vaginally tw o times a week. ferrous sulfate 325 mg oral tablet (3 sources) Start: 01-24-2025 End: 01-24-2026 take 1 tablet by mouth once daily ferrous sulfate 325 mg (65 mg iron) tablet Take 325 mg by mouth once daily. 01/24/2025 01/24/2026 Active L.acidophilus-L.rh amnosus (PROBIOTIC) 15 billion cell capsule (20 sources) take 1 capsule by mouth once daily L.acidophilus-L.rh amnosus (PROBIOTIC) 15 billion cell capsule Take 1 capsule by mouth once daily. Active take 1 capsule by mo ut once daily L.acidophilus-L.rhamnosus (PROBIOTIC) 15 billion cell capsule Take 1 capsule by mouth once daily. 0 Active Comment on above: Take 1 capsule by mo uth once daily. lactobacillus acidophilus 1.5 mg oral capsule (7 sources) Start: 06-02-2024 Lactobacillus Acidophilus (Probiotic Acidophilus) 250 million cell capsule Active 500 NMA PO DAILY June 02, 2024 1:00am Start: 03-13-2019 End: 12-16-2020 take 1 capsule by mouth once daily Lactobacillus acidophilus (FLORAJEN) 460 mg (20 billion cell) cap Indications: Oral thrush Take 1 capsule by mouth once daily. 90 capsule 3 03/13/2019 12/16/2020 Discontinued multivit-min/iron/folic acid /K (MULTI-DAY PLUS MINERALS ORAL) (20 sources) take 1 capsule by mouth once daily multivit-min/iron/folic acid/K (MULTI-DAY PLUS MINERALS ORAL) Take 1 capsule by mouth once daily. Active take 1 capsule by mouth once jet ly multivit-min/iron/folic acid/K (MULTI-DAY PLUS MINERALS ORAL) Take 1 capsule by mouth once daily. 0 Active Comment on above: Take 1 capsule by mo ut once daily. Multivitamin (Daily Multi-Vitamin) tablet (4 sources) Start: 5 Multivitamin (Daily Multi-Vitamin) tablet [...] tablet Indications: NSIP (nonspecific interstitial pneumonitis) ([facility] Take 1 tablet by mouth two times [...] on above: Take 1 capsule by mo [facility] twice daily for 7 days. omeprazole 20 mg delayed release oral capsule (18 sources) Proton Pump Inhibitor Start: 0 End: [...] Comment on above: Take 1 capsule by [facility] daily before breakfast. 1/2 hr before meal. [...] mg, IntraVENous, Once PRN, nausea, Starting on [facility] 03/23/24 at 1633, For 1 dose, Recovery (only), Initial antiemetic therapy. Start: 03-03-2024 End: 01-26-2025 take 1 tablet by mouth every eight hours as needed ondansetron (ZOFRAN) 4 mg tablet Take 1 tablet by mouth every 8 hours as needed for nausea/vomiting. 90 tablet 11 03/03/2024 11/29/2024 Discontinued pantoprazole 20 mg delayed release oral tablet (20 sources) Proton Pump Inhibitor Start: 10-11-2024 take 1 tablet by mouth once daily pantoprazole DR (PROTONIX) 20 mg tablet Take 1 tablet by mouth once daily. 10/11/2024 Active Start: 03-05-2024 End: 03-07-2024 take 40 mg by mouth twice daily before mealtime 40 mg, Oral, 2 times daily before meals, First dose on 03/05/24 at 0700, Do not crush, chew, or split. take 1 tablet by bradley th once daily before breakfast pantoprazole (ProtoNix) 40 MG EC tablet Take 40 mg by mouth every morning (before breakfast). Do not crush, chew, or split. Active phenazopyridine hydrochloride 200 mg delayed release oral [...] 1 tablet by bradley th three times daily as needed. sulfamethoxazole 400 mg / trimethoprim 80 mg [...] 500 mg oral tablet (20 sources) Start: 01-23-2025 End: 01-26-2025 take 1 tablet by mouth every eight hours as needed for pain and fever 1,000 mg, Oral, Every 8 hours PRN, mild pain (1-3), fever, Starting on Wed01/23/25 at 0022, Maximum dose of acetaminophen is 4000 mg from all sources in 24 hours. Start: 03-23-2024 End: 03-23-2024 1,000 mg, Oral, Once, On Varsah 03/23/24 at 1130, For 1 dose, Preprocedure, [...] to obtaining consent and/or history and physical. amitriptyline hydrochloride 50 mg oral tablet (20 sources) Tricyclic Antidepressant Start: 01-26-20 End: 01-27-20 take 100 mg by mouth once daily 100 mg, Oral, Nightly, First dose on Varsha 01/25/25 at 2100 Start: 11-14-2024 take 1 tablet by [facility] once daily at bedtime amitriptyline (ELAVIL) 100 [...] Start: 07-07-2024 take 2 tablets by mo [facility] at bedtime Amitriptyline 50 mg tablet Active [...] July 07, 2024 10:28am Start: 05-23-2024 End: 01-26-2025 take 1 tablet by mouth once daily [...] directed 60 tablet 2 01/11/2024 01/31/2024 Discontinued Apoaequorin (Prevagen) 10 MG capsule (15 sources) End: 01-26-2025 take 1 capsule by mouth once daily Apoaequorin (Prevagen) 10 MG capsule Take 10 mg by mouth daily. 01/26/2025 Discontinued (Stop taking at discharge) take 1 capsule by mouth once jet ly Apoaequorin (Prevagen) 10 MG capsule Take 10 mg by mouth daily. Active take 1 capsule by mouth once jet ly Apoaequorin (Prevagen) 10 MG capsule Take 10 mg by mouth daily. Suspended aspirin 81 mg delayed release oral tablet (20 sources) Platelet Aggregation Inhibitor, Nonsteroidal Anti-inflammatory Drug Start: 03-04-2024 End: 01-26-2025 Start: 06-06-2018 End: 12-22-2022 take 1 tablet by mouth once daily Aspirin 81 MG tablet,chewable Active 81 mg PO DAILY@0800 June 28, 2018 1:00am Comment on above: Take 1 tablet by bradley th once daily. Take 81 mg by mouth once daily. biotin 5 mg sublingual tablet (20 sources) Start: 06-02-2024 End: 10-11-2024 take 1 tablet under the tongue once daily Biotin 5,000 mcg tablet, sublingual Discontinued 5000 ug SL DAILY June 02, 2024 1:00am October 11, 2024 10:09am End: 01-26-2025 take 1 capsule by mouth once biotin 5000 MCG capsule T lele 5,000 mcg by mouth daily. OTC per patient 01/26/2025 Discontinued (Stop taking at discharge) End: 07-31-2024 take 1 tablet by mouth once daily biotin 5 mg tab Take 5 mg by mouth once daily. 07/31/2024 Discontinued (Course of therapy completed) onabotulinumtoxina 100 unt injection (18 sources) Acetylcholine [...] (20 sources) Vitamin D Start: 03-04-2024 End: 10-24-2024 take 1 tablet by mouth twice daily [...] twice daily. Take 1 tablet by bradley two times a day. Calcium Carbonate-Vitamin D [...] / sodium lactate 0.028 meq/ml injectable solution (10 sources) Start: End: take 50 mL intravenously every hour 50 mL/hr, IntraVENous, Continuous, Starting on Wed01/23/25 at 0045 Start: 01-22-2025 End: 01-23-2025 1,000 mL, IntraVENous, at 50 0 mL/hr, Administer over 2 Hours, Once, On Wed01/22/25 at 2130, For 1 dose Start: 03-23-2024 End: 03-23-2024 take 125 mL intravenously every hour 125 mL/hr, IntraVENous, Continuous, Starting on Wed03/23/24 at 1645, Recovery (only) carbidopa 25 mg / levodopa 100 mg extended release oral tablet (20 sources) Aromatic Amino Acid Decarboxylation Inhibitor, Aromatic Amino Acid Start: 01-22-2025 End: 01-26-2025 take 1 tablet by mouth three times daily 1 tablet, Oral, 3 times daily, First dose (after last modification) on Wed01/25/25 at 1000, Do not crush, chew, or split. Start: 10-11-2024 Carbidopa-Levo dopa (Sinemet) 25-100 mg tablet Active 1 {tbl} PO THREE TIMES A DAY October 11, 2024 12:00am Start: 08-03-2024 End: 01-26-2025 take 1 tablet by mouth three times daily carbidopa-levodopa (SINEMET 25-100) 25-100 mg per tablet Take 1 tablet by mouth three times a day. 270 tablet 3 10/17/2024 Active cefTRIAXone (Rocephin) 1,000 mg in sodium chloride 0.9 % 50 mL IVPB Mini-Bag Plus (4 sources) Start: 01-25-2025 End: 01-26-2025 1,000 mg, IntraVENous, at 10 0 mL/hr, Administer over 30 Minutes, Every 24 hours, First dose on [facility] 01/25/25 at 1400, Mini-Bag Plus bag, Suspected Indication (Select all that apply): Urinary Tract Infection Start: 03-05-2024 End: 03-08-2024 1,000 mg, IntraVENous, at 10 0 mL/hr, Administer over 30 Minutes, Every 24 hours, First dose on [place] 03/05/24 at 0400, Mini-Bag Plus bag, Suspected Indication (Select all that apply): Urinary Tract Infection cefTRIAXone (Rocephin) 2,000 mg in sodium chloride 0.9 % 50 mL IVPB Mini-Bag Plus (2 sources) Start: 03-09-2024 End: 03-09-2024 2,000 mg, IntraVENous, at 100 mL/hr, Administer [...] Comment on above: Take 1 capsule by [facility] twice daily for 7 days. diazePAM 5 mg oral tablet (6 sources) Benzodiazepine Start: 06-28-19 End: 07-01-19 take 1 tablet by mouth three times daily as needed Diazepam 5 MG tablet Discontinued 5 mg PO THREE TIMES A DAY as needed for Vertigo 20 3 0 June 28, 2018 12:35pm June 30, 2018 1:00am July 01, 2018 1:08am Vertigo Dizziness and giddiness 1 ml diphenhydrAMINE hydrochloride 50 mg/ml cartridge (2 sources) Histamine-1 Receptor Antagonist Start: 03-23-20 End: 03-23-20 12.5 mg, IntraVENous, Once PRN, itching, Starting on Varsha 03/23/24 at 1633, For 1 dose, Recovery (only) 2 ml fentaNYL 0.05 mg/ml injection (4 sources) Opioid Agonist Start: 03-23-20 End: 03-23-20 50 mcg, IntraVENous, Every 5 min PRN, [...] (20 sources) Azole Antifungal Start: 03-07-2024 End: 01-26-2025 take 1 tablet by mouth once daily [...] Comment on above: Take 1 tablet by [facility] once daily for 14 days. fludrocortisone acetate 0.1 mg oral tablet (20 sources) Start: 01-25-2025 End: 01-26-2025 take 0.2 mg by mouth once daily 0.2 mg, Oral, Daily, First dose on Wed01/25/25 at 0900, On hold since Wed01/24/2025 at 0831 until manually unheld Start: 12-13-2024 End: 09-09-2025 fludrocortisone (FLORINEF) 0 .1 mg tablet Indications: Parkinson's disease, unspecified whether dyskinesia present, unspecified whether manifestations fluctuate (HCC) , Orthostatic hypotension Take 2 tablets in the morning and one table the evening. 270 tablet 12/27/2024 Active Start: 11-29-2024 End: 02-27-2025 take 0.1 mg by mouth once daily at dinner 0.1 mg, Oral, Daily With Dinner, First dose on Wed01/24/25 at 1700, On hold since Wed01/24/2025 at 0831 until manually unheld Start: 06-02-2024 End: 07-07-2024 take 1 tablet [...] take 1 tablet by mouth twice daily fludrocortisone (Florinef) 0.1 MG tablet Take 1 tablet (0.1 mg) by mouth 2 times daily. 60 tablet 03/09/2024 Active Geriatric Capdzdbi-Rxgy-Ioom (Complete Senior) 1 EACH tablet (6 sources) Start: 06-28-2018 End: 12-19-2024 take 1 tablet by mouth once daily Geriatric Hnmmkjzn-Oyxk-Vpna (Complete Senior) 1 EACH tablet Discontinued 1 NMA PO DAILY June 28, 2018 1:00am December 19, 2024 12:39pm Start: 06-28-2018 take 1 tablet by bradley th once daily Geriatric Rkofjxfo-Iwox-Wwxv (Complete Senior) 1 EACH tablet Active 1 NMA PO DAILY June 28, 2018 1:00am 0.5 ml heparin sodium, porcine 23372 unt/ml prefilled syringe (2 sources) Unfractionated Heparin, [...] 11/14/2024 Discontinued ibuprofen 400 mg oral tablet (6 sources) Nonsteroidal Anti-inflammatory Drug Start: 12-26-2017 End: 06-05-2018 take 1 tablet by mouth every four hours as needed for pain Ibuprofen 400 MG tablet Discontinued 400 mg PO EVERY 4 HOURS NEEDED as needed for Mild Pain () 0 December 26, 2017 12:00am June 05, [...] (Normodyne,Trandate) injection 5 mg (2 sources) Start: 03-23-20 End: 03-23-20 labetalol (Normodyne,Tranda te) injection 5 mg levothyroxine sodium 0.075 mg oral tablet (20 sources) l-Thyroxine Start: 01-24-20 End: 01-27-20 take 75 ug by mouth once daily before breakfast 75 mcg, Oral, Daily before breakfast, First dose on Wed01/23/25 at 0600, Tube feeding (TF) interaction, obtain physician order to manage, recommend holding TF for 30 minutes before and after dose. Start: 2024 take 1 capsule by mo [facility] once daily Levothyroxine 100 mcg capsule Active [...] Comment on above: Take 1 tablet by [facility] once daily. Take on empty stomach lidocaine hydrochloride 0.02 mg/mg topical gel (3 sources) Antiarrhythmic, Amide Local Anesthetic Start: 12-01-2023 End: 12-01-2023 lidocaine urojet 2 % 6 mL topical gel (GLYDO) Start: 12-01-2023 End: 12-01-2023 lidocaine urojet 2 % 6 mL to pical gel (GLYDO) Start: 01-15-2023 End: 01-15-2023 lidocaine 10 mg/mL (1 %) 600 mg injection (XYLOCAINE) linaclotide 0.072 mg oral capsule (7 sources) Guanylate Cyclase-C Agonist Start: 11-08-2024 End: 11-29-2024 take 1 capsule by mouth once daily in the morning Linaclotide (Linzess) 72 mcg capsule Discontinued 72 ug PO EVERY MORNING 15 06November 08, 2024 12:00am November 21, 2024 11:55am 1 ml LORazepam 2 mg/ml injection (2 sources) Benzodiazepine Start: 03-06-2024 End: 03-06-2024 0.5 mg, IntraVENous, Once PRN Procedure, anxiety, Starting on Wed03/06/24 at 1601, For 1 dose, For IV doses dilute dose with 1ml NS. megestrol acetate 20 mg oral tablet (2 sources) Progestin Start: 01-22-2025 End: 01-24-2025 take 20 mg by mouth twice daily at mealtime 20 mg, Oral, 2 times daily with meals, First dose on Wed01/22/25 at 0900, HAZARDOUS - Handle with care melatonin 12 mg oral tablet (20 sources) [...] mg/ml injection (2 sources) Opioid Antagonist Start: 4 End: 4 0.4 mg, IntraVENous, Every 5 min PRN, opioid reversal, respiratory depression, Starting on 03/05/24 at 1659, +++ For RR nystatin 309050 unt/ml oral suspension (20 sources) Polyene Antifungal [...] swallow (5 mL) 4 times per day. ondansetron ODT (Zofran-ODT) disintegrating tablet 4 mg (2 sources) Start: End: take 1 tablet by mouth every eight hours as needed for nausea and vomiting ondansetron ODT (Zofran-ODT) disintegrating tablet 4 mg 24 hr oxybutynin chloride 10 mg extended [...] NS. Vial expires 2 hrs after reconstitution. piperacillin-tazobact am (Zosyn) 4,500 mg in sodium chloride 0.9 % 100 mL IVPB Mini-Bag Plus (6 sources) Start: End: take 4500 mg intravenously every six hours 4,500 mg, IntraVENous, at 33.3 mL/hr, Administer over 3 Hours, Every 6 hours, First dose on Wed01/23/25 at 1200, Dosage or interval has been adjusted per P&T Renal Dosing policy. Mini-Bag Plus bag, Suspected Indication (Select all that apply): Urinary Tract Infection Start: 01-23-2025 End: 01-23-2025 take 4500 mg intravenously every eight hours 4,500 mg, IntraVENous, at 25 mL/hr, Administer over 4 Hours, Every 8 hours, First dose (after last modification) on Wed01/23/25 at 0500, *Adjusted dose from 3.375g IV q8h for estimated CrCl of ~ 36.6mL/min per P&T policy. Original Start Date = 01/22/25* Mini-Bag Plus bag, Suspected Indication (Select all that apply): Urinary Tract Infection Start: 01-22-2025 End: 01-22-2025 plecanatide 3 mg oral tablet (14 sources) Start: 11-21-2024 End: 01-30-2025 take 1 tablet by mouth once daily TRULANCE 3 mg tablet Take 1 tablet by mouth once daily. 11/21/2024 01/30/2025 Discontinued polyethylene glycol 3350 06448 mg powder for oral solution (7 sources) Osmotic Laxative Start: 01-22-2025 End: 01-26-2025 take 17 g by mouth every twenty-four hours as needed for constipation Start: 03-04-2024 End: 03-09-2024 take 17 g by mouth every twenty-four hours as needed for constipation 17 g, Oral, Daily PRN, constipation, Starting on 03/04/24 at 1428, 1st line for treatment of constipation - give scheduled if no bowel movement in past 24 hours. Start: 01-28-2023 End: 02-27-2023 polyethylene glycol 3350 (KS RALAX) 17 gram/dose powder Take 17 g by mouth once daily. Dissolve dose in 4 - 8 ounces of liquid and take as directed. 476 g 2 01/28/2023 02/27/2023 Active Comment on above: Take 17 g by mouth o nce daily. Dissolve dose in 4 - 8 ounces of liquid and take as directed. polyethylene glycol 3350 248701 mg / potassium chloride 2970 mg / sodium bicarbonate 6740 mg / sodium chloride 5860 mg / sodium sulfate 95449 mg powder for oral solution (3 sources) Osmotic Laxative Start: 12-29-2024 End: 01-21-2025 Peg 3350-Electrolytes (Golytely) 236-22.74-6.74 -5.86 gram recon soln Discontinued 240 mL PO Q10M 4000 0 December 29, 2024 12:00am January 21, 2025 8:15pm until fecal effluent is clear microencapsulated potassium chloride 10 meq extended release oral tablet (8 sources) Start: 01-23-2025 End: 01-23-2025 40 mEq, Oral, Once, On Wed01/23/25 at 0900, For 1 dose, Best given with food and plenty of water to minimize gastric irritation. Do not crush or chew. Start: 01-23-2025 End: 01-23-2025 40 mEq, Oral, Once, On Wed at 0900, For 1 dose, Best given with food and plenty of water to minimize gastric irritation. Do not crush or chew. Start: 06-28-2018 End: 03-04-2024 Potassium Chloride (K-Dur) 2 0 MEQ tablet Discontinued 20 meq PO TWICE A DAY June 28, 2018 1:00am March 04, 2024 1:05am predniSONE 2.5 mg oral tablet (20 sources) Start: 03-04-2024 End: 03-09-2024 take 5 mg by mouth once daily [...] back to 10 mg a day PREVAGEN (6 sources) Start: End: PREVAGEN Discontinued 1 NMA [...] (2 times per day), First dose on Wed03/23/24 at 2100, Recovery (only) Start: 03-23-2024 End: 03-23-2024 10 mL, IntraVENous, Every 12 hours scheduled (2 times per day), First dose on Wed03/23/24 at 2100, Recovery (only) Start: 03-23-2024 End: 03-23-2024 500 mL, IntraVENous, at 1,00 0 mL/hr, Administer over 0.5 Hours, PRN, Anti-nausea, Starting on Wed03/23/24 at 1633, Recovery (only), Indications: Anti-nausea Start: [...] IntraVENous, Every 12 hours, First dose on [facility] 03/04/24 at 1445, For Line Patency: Peripheral [...] tablet 5 10/07/2023 03/16/2024 Discontinued (Side Effects) Vancomycin (2 sources) Glycopeptide Antibacterial Start: 01-22-2025 End: 01-23-2025 vancomycin (Vancocin) 1,000 mg in sodium chloride 0.9 % 250 mL IVPB (Vial Mate) (2 sources) Start: 01-23-2025 End: 01-24-2025 Problems Active Problems Problem Classification Problem Date Documented Da te Episodic/Chronic Abdominal pain (20 sources) Epigastric pain; Translations: [Epigastric pain] Onset: 5 Episodic Calculus of urinary tract (19 sources) Kidney stone; Translations: [Calculus of kidney] Onset: 3 Episodic Chronic kidney disease (20 sources) Chronic kidney disease stage 3A ; Translations: [Stage 3a chronic kidney disease (HCC)] Onset: 3 01-12-2023 Chronic Chronic kidney disease (6 sources) Chronic kidney disease; Translations: [Chronic kidney disease, stage 3a (HCC)] Onset: 3 Chronic obstructive pulmonary disease and bronchiectasis (2 sources) Bronchiectasis; Translations: [Bronchiectasis, uncomplicated] Onset: 5 10-26-2024 Chronic Chronic obstructive pulmonary disease and bronchiectasis (1 source) Bronchitis; Translations: [Bronchitis, not specified as acute or chronic] Episodic Deficiency and other anemia (1 source) Iron deficiency anemia; Translations: [Iron deficiency anemia, unspecified] 01-30-2025 Episodic Deficiency and other anemia (1 source) Iron deficiency anemia, unspecified; Translations: [Iron deficiency anemia, unspecified iron deficiency anemia type] Onset: 5 Episodic Diabetes mellitus with complications (1 source) Other specified diabetes mellitus with diabetic chronic kidney disease; Translations: [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, without long-term current use of insulin (HCC)] Onset: 5 Chronic Diabetes mellitus without complication (2 sources) Increased glucose level; Translations: [Other abnormal glucose] 12-28-2023 Episodic Diabetes mellitus without complication (1 source) Diabetes mellitus without complication; Translations: [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, without long-term current use of insulin (HCC)] Onset: 5 Disorders of lipid metabolism (1 [...] current use of immunosuppressive drug; Translations: [Other intermediate teacher (current) drug therapy] Episodic Other aftercare (1 source) Post-discharge follow-up; Translations: [Encounter for follow-up examination after completed treatment for conditions other than malignant neoplasm] 03-16-2024 Episodic Other aftercare (3 sources) senior care systemic 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; 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] 05-05-2024 Episodic Other aftercare (2 sources) Drug therapy finding; Translations: [On Cellcept therapy] 09-22-2024 Episodic Other aftercare (1 source) Encounter for follow-up examination after completed treatment for conditions other than malignant neoplasm; Translations: [Encounter for follow-up examination after completed treatment for conditions other than malignant neoplasm] Onset: Episodic Other bone disease and musculoskeletal deformities (1 source) Steroid-induced osteopenia; Translations: [Other specified disorders of bone density and structure, unspecified site] Episodic Other bone disease and musculoskeletal deformities (1 source) Costal chondritis; Translations: [Chondrocostal junction syndrome [Tietze]] 07-31-2024 Episodic Other circulatory disease (1 source) Low [...] kidney and ureter, unspecified] 12-28-2023 Episodic Other endocrine disorders (1 source) Hypocortisolism secondary to another disorder; Translations: [Other adrenocortical insufficiency] 05-05-2024 Chronic Other endocrine disorders (2 sources) Hypoadrenalism; Translations: [Unspecified adrenocortical insufficiency] 05-05-2024 Chronic Other endocrine disorders (1 source) Other adrenocortical insufficiency; Translations: [Secondary adrenal insufficiency (HCC)] Onset: 4 Chronic Other endocrine disorders (1 source) Unspecified adrenocortical insufficiency; Translations: [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 (HCC)] Onset: 4 Chronic Other eye disorders (4 sources) Pain in eye; Translations: [Ocular pain, left eye] 09-11-2024 Episodic Other female genital disorders (7 sources) Vaginal bleeding; Translations: [Abnormal uterine and vaginal bleeding, unspecified] Onset: 5 01-25-2025 Chronic Other female genital disorders (4 sources) Abnormal uterine and vaginal bleeding, unspecified; Translations: [Abnormal uterine and vaginal bleeding, unspecified] Onset: 5 Chronic Other female genital disorders (1 source) Burning sensation of vagina; Translations: [Unspecified condition associated with female genital organs and menstrual cycle] 09-09-2023 Episodic Other female genital disorders (1 source) Burning sensation of vulva; Translations: [Other specified conditions associated with female genital organs and menstrual cycle] 10-07-2023 Episodic Other gastrointestinal disorders (11 sources) Irritable bowel syndrome characterized by constipation; Translations: [Irritable bowel syndrome with constipation] 11-21-2024 Chronic Other gastrointestinal disorders (2 sources) Irritable bowel syndrome with constipation; Translations: [Irritable bowel syndrome with constipation] Onset: 5 Chronic Other gastrointestinal disorders (1 source) Chronic constipation; Translations: [Other constipation] Episodic Other gastrointestinal disorders (20 sources) Constipation; Translations: [Constipation, unspecified] 10-11-2024 Episodic Other gastrointestinal disorders (3 sources) Constipation, unspecified; Translations: [Constipation, unspecified] Onset: 5 Episodic Other hereditary and degenerative [...] Onset: 8 Resolved: 9 06-22-2023 Chronic Other screening for suspected conditions (not [...] menopausal state] 07-11-2024 Episodic Residual codes; unclassified (6 sources) History of insertion of stent into ureter; Translations: [Other postprocedural status] 06-05-2018 Episodic Spondylosis; intervertebral disc disorders; other back problems (4 sources) Acute low back pain; Translations: [Acute right-sided low back pain without sciatica] 09-11-2024 Episodic Thyroid disorders (20 sources) Acquired hypothyroidism; Translations: [Hypothyroidism, unspecified] Onset: 0 03-26-2020 Chronic Unclassified (7 sources) Parkinsonism; Translations: [Parkinsonism, unspecified Parkinsonism type (HCC)] 03-17-2024 Chronic Unclassified (13 sources) Parkinson's disease; Translations: [Parkinson's disease, unspecified whether dyskinesia present, unspecified whether manifestations fluctuate (HCC)] 11-29-2024 Chronic Unclassified (2 sources) Procedure; Translations: [Procedure] Onset: 4 Unclassified (1 source) On Cellcept therapy; Translations: [On Cellcept therapy] Onset: 5 Unclassified (1 source) Parkinsonism, unspecified Parkinsonism type (HCC); Translations: [Parkinsonism, unspecified Parkinsonism type (HCC)] Onset: 5 Unclassified (1 source) Acute right-sided low back pain without sciatica; Translations: [Acute right-sided low back pain without sciatica] Onset: 5 Unclassified (1 source) ACTH elevation Onset: 5 Urinary tract infections (20 sources) Chronic interstitial cystitis; Translations: [Interstitial cystitis (chronic) without hematuria] Onset: 4 01-11-2024 Chronic Urinary tract infections (12 sources) Acute cystitis; Translations: [Acute cystitis with hematuria] Onset: 4 Episodic Viral infection (9 sources) Genital warts; Translations: [Anogenital (venereal) warts] [...] Onset: 06-14-2018 Resolved: 06-19-2018 06-19-2018 Episodic Mycoses (19 sources) Candidiasis of the esophagus; Translations: [Candidal [...] Long-term current use of systemic steroid; Translations: [senior care (current) use of systemic steroids] Onset: 10-30-2022 Episodic Other aftercare (20 sources) Taking high risk medication; Translations: [Other fdc (current) drug therapy] Onset: 10-30-2022 Episodic Other aftercare (1 source) 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; Translations: [senior care systemic 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] Onset: 05-05-2024 Episodic Other circulatory disease (20 sources) Orthostatic hypotension; Translations: [Orthostatic hypotension] Onset: 06-18-2018 07-08-2018 Episodic Other circulatory disease (1 source) Orthostatic [...] calculous obstruction; Translations: [Calculus of ureter] Onset: 03-04-2024 03-05-2024 Episodic Other endocrine disorders (20 sources) Syndrome [...] [History of tremor] Onset: 07-10-2024 Episodic Other non-traumatic joint disorders (3 sources) [...] Unclassified (1 source) Patient encounter status 12-06-2024 Results Test Name Value Interpretation Reference Range Facility CT Chest WO contraston 01-29 IMPRESSION: No significant interval change in CT appearance of the chest. Again seen is reticulation, with traction bronchiectasis, in both lungs, not significantly changed in the interval. Suture lines are again seen within the right lung. There are stable tiny pulmonary nodules. No jonathan lymphadenopathy is seen within the chest. Shipping Services Sales Representative: PSCB Transcribe Date/Time: Jan 29 2025 10:16A Dictated by : AMANDA RAMON MD This examination was interpreted and the report reviewed and electronically signed by: AMANDA RAMON MD on Jan 29 2025 6:38PM [facility] DIVISION OF RADIOLOGY * * *Final Report* * * DATE OF EXAM: Jan 29 2025 10:02AM [facility] 0541 - CT CHEST WO IVCON / PROCEDURE REASON: Interstitial pulmonary disease (HCC) * * * * Physician Interpretation * * * * EXAMINATION: CHEST CT WITHOUT CONTRAST CLINICAL HISTORY: Interstitial disease Technique: Spiral CT acquisition of the chest from the thoracic inlet to the upper abdomen without contrast. MQ: CTCWO_6 CT Radiation dose: Integrated Dose-length product (DLP) for this visit = 238 mGy*cm CT Dose Reduction Employed: Automated exposure control(AEC) and iterative recon Comparison: 06/12/2024 RESULT: Limitations: None. Lines, tubes, and devices: None. Lung parenchyma and airways: Suture lines are again seen within the right lung. Again seen is reticulation, with traction bronchiectasis and mild regions of honeycombing within both lungs, not significantly changed in the interval and compatible with interstitial disease. No pneumothorax or endobronchial lesion. Stable tiny pulmonary nodules. For example, there is a stable, approximately 2 mm nodule seen within the left upper lobe (series 9, image #44). Pleural space: No significant pleural effusion. Lower neck, lymph nodes, and mediastinum: There are no pathologically enlarged axillary, mediastinal, or hilar lymph nodes. Heart, pericardium, and thoracic vessels: There is a small hiatal hernia. Atherosclerotic calcifications are present with thoracic aorta. The heart is normal in size. No significant pericardial effusion. Bones and soft tissues: There is no destructive bone lesion. Stable mild anterior wedging of the T11 vertebral body. Upper abdomen: Nonspecific wall thickening of the stomach likely relates to underdistention. There is mild, nonspecific bilateral perinephric fat stranding. A tiny splenule seen within the left upper quadrant. DIVISION OF RADIOLOGY Provider, Roro [facility] - 01/29/2025 * * *Final Report* * * DATE OF EXAM: Jan 29 2025 10:02AM [facility] 0541 - CT CHEST WO IVCON / PROCEDURE REASON: Interstitial pulmonary disease (HCC) * * * * Physician Interpretation * * * * EXAMINATION: CHEST CT WITHOUT CONTRAST CLINICAL HISTORY: Interstitial disease Technique: Spiral CT acquisition of the chest from the thoracic inlet to the upper abdomen without contrast. MQ: CTCWO_6 CT Radiation dose: Integrated Dose-length product (DLP) for this visit = 238 mGy*cm CT Dose Reduction Employed: Automated exposure control(AEC) and iterative recon Comparison: 06/12/2024 RESULT: Limitations: None. Lines, tubes, and devices: None. Lung parenchyma and airways: Suture lines are again seen within the right lung. Again seen is reticulation, with traction bronchiectasis and mild regions of honeycombing within both lungs, not significantly changed in the interval and compatible with interstitial disease. No pneumothorax or endobronchial lesion. Stable tiny pulmonary nodules. For example, there is a stable, approximately 2 mm nodule seen within the left upper lobe (series 9, image #44). Pleural space: No significant pleural effusion. Lower neck, lymph nodes, and mediastinum: There are no pathologically enlarged axillary, mediastinal, or hilar lymph nodes. Heart, pericardium, and thoracic vessels: There is a small hiatal hernia. Atherosclerotic calcifications are present with thoracic aorta. The heart is normal in size. No significant pericardial effusion. Bones and soft tissues: There is no destructive bone lesion. Stable mild anterior wedging of the T11 vertebral body. Upper abdomen: Nonspecific wall thickening of the stomach likely relates to underdistention. There is mild, nonspecific bilateral perinephric fat stranding. A tiny splenule seen within the left upper quadrant. IMPRESSION IMPRESSION: No significant interval change in CT appearance of the chest. Again seen is reticulation, with traction bronchiectasis, in both lungs, not significantly changed in the interval. Suture lines are again seen within the right lung. There are stable tiny pulmonary nodules. No jonathan lymphadenopathy is seen within the chest. Shipping Services Sales Representative: PSCB Transcribe Date/Time: Jan 29 2025 10:16A Dictated by : AMANDA RAMON MD This examination was interpreted and the report reviewed and electronically signed by: AMANDA RAMON MD on Jan 29 2025 6:38PM EST [facility] Radiology Study observation (narrative) [facility] CT Chest WO contrastOrdered By: [facility] Provider on 01-29-2025 [facility] BASIC METABOLIC PANELon 01-15 Anion gap [Moles/Vol] 7 mmol/L Normal 3-13 [facility] Comment on above: Performed By: #### L AB15 ####Cuprous Chloride Helper: LACY OROSCO ([id number])[facility])[address] [place] [address] Calcium [Mass/Vol] 8.9 mg/dL Normal 8.8-10.0 [facility] Comment on above: Performed By: #### L AB15 ####Cuprous Chloride Helper: LACY OROSCO ([id number])[facility] ([facility])[address] [place] [address] Chloride [Moles/Vol] 111 mmol/L High 98-107 [facility] Comment on above: Performed By: #### L AB15 ####Cuprous Chloride Helper: LACY OROSCO ([id number])[facility])[address] [place] [address] CO2 [Moles/Vol] 18 mmol/L Low 23-31 [facility] Comment on above: Performed By: #### L AB15 ####Cuprous Chloride Helper: LACY OROSCO ([id number])[facility])[address] [place] [address] Creatinine [Mass/Vol] 1.63 mg/dL High 0.57-1.11 [facility] Comment on above: Performed By: #### L AB15 ####Cuprous Chloride Helper: LACY [id number])[facility])[address] [place] [address] GLOMERULAR FILTRATION RATE ML/MIN/1.73 SQ M.PREDICTED 34.6 mL/min/1.73m*2 Low >60.0 [facility] Comment on above: Result Comment: Calc ulation based on the Chronic Kidney Disease Epidemiology Collaboration (CKD-EPI) equation refit without adjustment for race Performed By: #### L AB15 ####Cuprous Chloride Helper: LACY OROSCO ([id number])[facility])[address] [place] [address] Glucose [Mass/Vol] 90 mg/dL Normal 82-115 [facility] Comment on above: Performed By: #### L AB15 ####Cuprous Chloride Helper: LACY OROSCO ([id number])[facility])[address] [place] [address] Potassium [Moles/Vol] 4.0 mmol/L Normal 3.5-5.1 [facility] Comment on above: Result Comment: [facility] potassium values may be up to 0.5 mmol/L lower than serum values. Performed By: #### L AB15 ####Cuprous Chloride Helper: LACY OROSCO ([id number])[facility])[address] [place] [address] Sodium [Moles/Vol] 136 mmol/L Normal 136-145 [facility] Comment on above: Performed By: #### L AB15 ####Cuprous Chloride Helper: LACY OROSCO ([id number])[facility])[address] [place] [address] Urea nitrogen [Mass/Vol] 30 mg/dL High 9-23 [facility] Comment on above: Performed By: #### L AB15 ####Cuprous Chloride Helper: LACY OROSCO ([id number])[facility])[address] [place] [address] Basic metabolic 1998 panelon 01-26-2025 Anion gap [Moles/Vol] 7 mmol/L 3 - 13 mmol/L [facility] Calcium [Mass/Vol] 8.9 mg/dL 8.8 - 10. 0 mg/dL [facility] Chloride [Moles/Vol] 111 mmol/L High 98 - 10 7 mmol/L [facility] CO2 [Moles/Vol] 18 mmol/L Low 23 - 31 mmol/L [facility] Creatinine [Mass/Vol] 1.63 mg/dL High 0.57 - 1.11 mg/dL [facility] GFR/1.73 sq M.predicted (S/P/Bld) [Vol rate/Area] 34.6 mL/min Low - PINF [facility] Comment on above: Calculation based on the Chronic Kidney Disease Epidemiology Collaboration (CKD-EPI) equation refit without adjustment for race Glucose [Mass/Vol] 90 mg/dL 82 - 115 mg/dL [facility] Interpretation and review of laboratory results Abnormal [facility] Potassium [Moles/Vol] 4 mmol/L 3.5 - 5.1 mmol/L [facility] Comment on above: Plasma potassium ines ues may be up to 0.5 mmol/L lower than serum values. Sodium [Moles/Vol] 136 mmol/L 136 - 145 mmol/L [facility] Urea nitrogen [Mass/Vol] 30 mg/dL High 9 - 23 mg/dL [facility] CBC (HEMOGRAM)on 01-26-2025 Erythrocyte distribution width (RBC) [Ratio] 14.1 % Normal 11.5-15.0 [facility] Comment on above: Performed By: #### L [id number] #### Cuprous Chloride Helper: LACY OROSCO ([phone]) [address] Hematocrit (Bld) [Volume fraction] 29.2 % Low 35.0-47.0 [facility] Comment on above: Performed By: #### L [id number] #### Cuprous Chloride Helper: LACY OROSCO ([phone]) [facility] ([facility]) [address] [place] [address] [place] Hemoglobin (Bld) [Mass/Vol] 9.2 g/dL Low 11.7-16.0 [facility] Comment on above: Performed By: #### L [id number] #### Cuprous Chloride Helper: LACY [phone]) [facility]) [address] [place] [address] MCH (RBC) [Entitic mass] 26.1 pg Normal 26.0-34.0 [facility] Comment on above: Performed By: #### L [id number] #### Cuprous Chloride Helper: LACY OROSCO ([phone]) [facility] ([facility]) [address] [place] [address] MCHC 31.5 % Normal 30.5-36.0 [facility] Comment on above: Performed By: #### L [id number] #### Cuprous Chloride Helper: LACY OROSCO ([phone]) [facility] ([facility]) [address] [place] [address] MCV (RBC) [Entitic vol] 83.0 fL Normal 77.0-99.0 [facility] Comment on above: Performed By: #### L [id number] #### Cuprous Chloride Helper: LACY OROSCO ([phone]) [facility] ([facility]) [address] [place] [address] Platelet mean volume (Bld) [Entitic vol] 9.7 fL Normal 9.0-12.7 [facility] Comment on above: Performed By: #### L [id number] #### Cuprous Chloride Helper: LACY OROSCO ([phone]) [facility] ([facility]) [address] [place] [address] Platelets (Bld) [#/Vol] 369 10*3/uL Normal 140-440 [facility] Comment on above: Performed By: #### L [id number] #### Cuprous Chloride Helper: LACY OROSCO ([phone]) [facility] ([facility]) [address] [place] [address] RBC (Bld) [#/Vol] 3.52 10*6/uL Low 3.80-5.20 [facility] Comment on above: Performed By: #### L [id number] #### Cuprous Chloride Helper: LACY OROSCO ([phone]) [facility] ([facility]) [address] [place] [address] WBC (Bld) [#/Vol] 9.5 10*3/uL Normal 3.6-10.7 [facility] Comment on above: Performed By: #### L [id number] #### Cuprous Chloride Helper: LACY OROSCO ([phone]) [facility] ([address] CBC panel Auto (Bld)on 01-26 Erythrocyte distribution width (RBC) [Ratio] 14.1 % 11.5 - 15.0 % [facility] Hematocrit (Bld) [Volume fraction] 29.2 % Low 35.0 - 47.0 % [facility] Hemoglobin (Bld) [Mass/Vol] 9.2 g/dL Low 11.7 - 16.0 g/dL [facility] Interpretation and review of laboratory results Abnormal [facility] MCH (RBC) [Entitic mass] 26.1 pg 26.0 - 34.0 pg [facility] MCHC (RBC) [Mass/Vol] 31.5 % 30.5 - 36.0 % [facility] MCV (RBC) [Entitic vol] 83 fL 77.0 - 99.0 fL [facility] Platelet mean volume (Bld) [Entitic vol] 9.7 fL 9.0 - 12.7 fL [facility] Platelets (Bld) [#/Vol] 369 10*3/uL 140 - 440 10*3/uL [facility] RBC (Bld) [#/Vol] 3.52 10*6/uL Low 3.80 - 5.20 10*6/uL [facility] WBC (Bld) [#/Vol] 9.5 10*3/uL 3.6 - 10.7 10*3/uL [facility] No Panel InformationOrdered By: Izabela Castillo on 01-26-2025 Case Report Surgical Pathology Case: [id number] Authorizing Provider: Becca Joseph MD Collected: 01/24/2025 1537 Ordering Location: [facility] MA[facility] OR Received: 01/25/2025 0712 Pathologist: Izabela Castillo MD PhD Specimen: Uterus, ENDOMETRIAL BIOPSY [facility] Work Phone: Clinical Information a2iloGFmBDUjaMSdLAB wMVxhbnN sHIHhhOJcT1JedzqgFYujQJ8jTE 0hzHypdFHuyWWrYFCcStTpk3tin 452iNKrc0zrBBPDXNmpAGGFVSm1 fLqzO69po5B0LwjaT7oqYNGcCLe vRCHuLWwsoBRsZQh7GXIrvWNaur UkSzYcNKGeqQActUJ7GDWcRS9jr pzmUJqoDFnrOIQaciV0OTZrhSFa J7IhECJvUH0sybhvRHJ7JQvbREV uZXE5SsFnBZLfm5Adffq9AqVifV Wim5LrA1taiqVrgKrpmpJckc9xE SliaMJzCCZaTNAgGIJhw36xTWPy CtBmrbPsMmWgjg9cpiZcZ4cfznR qDcyoqtTzjz1oGKpziVWyebPgwI LwK7hnvIWJkRX0cBWqS2m6U8yhy Ni7HAYpQDMfrJl6TjJdUDdbKHWr VVtsrGIbWSUpPLilALIuYrEkH7E dVSDnZ7upPQdlIjrvCHEhejgeZN BOOTMuOSBbSUNELTEwLUNNXVxjZ VqxXJmwrKZoVWUdw3t4fq33FStn MGJ5ty67TVEdBiZinmHnToFupe2 aomXiB8uyitZxgKqvbnZwoc6mWH xklUPaCLTsXOUlJBUql91dUWVdK qPryoVxNyHvra4cpyDjJ6k6UYN5 PPs0YDUmTwIkP9xvyWocZINye2i nSBRwIsKmAZweBPsjrQv9KBYxpK WhSFvtecWncUQRr1J5HC3rei7dI XVzYWwgYmxlZWRpbmcgLSBOOTUu MCBbSUNELTEwLUNNXVxjZWxsXGl phKEvLVWig3shMBIjLVEzsa9= [facility] Work Phone: Disclaimer q5qkbFVlBOHcsECmHtFb MDAwXGF jk5fzUEBxpEKeIvFuApCvLaBaWm rlaZUoDAPpZwQhv5xkn840eXNmv 5qbZUHtDbH4sFCzIIPjF76oBAIE P266QVZfYVfnu8jgn8SpYLTasWU uk7S6LCTUDJvvSKTVQJd9iLfdF7 4rh5L6NlipL9ebJWYpYQUaW7ZnO A6cLGZlFwg0GIO5SEY1BACcMHJv T7VwHP4qXWKtkYBuTFh4w8khrWo xWJRqTOJ4n5ncMIgsthIfRV2nsy 9rkVv1r5bpntUgFXXlSJAouKGYI WAvJ3MahMnrOa1opGp4eZbcYxfy UNY1Opg9YM0jij53kek2tSinAMD fpykuBdN2VMntFLNdzjbtZLq4CU tnEVLyzGB2UQPpfIXfN8ObTJKeY X0heyy1AMJ7DAcnSKBxCfK2YZWm uZLrTULrsWbwOVcyn393TNK5KcE tML5gX9Nbo2L5tR8qyELbHDYamN VvBxIrDHVccv4vlFVfJBykp0ReM VX7icH8cNLlaVOrDRIeME02Yagk a8NxZfxdMRM2HEGmmfMfo6Jzh9l hSxYqgpJwN9plD5EmHEDzPCZgVB EuTlHcqmYze3Mrf8IvkTKnaRx2w 6mcONTrMJNefOwmi4ecIQB7FJBq A4H1nJBev8jnHYflZFJhjDN6haL 6NHPzqEDbF1KskD6rLUCxMG2dpw r2d8ptIMU6XWmxRHIvCaP2yfF6Y FGuzCKhBIBnsVgqMSobk782VNG1 HgKnHACrk2RkB8YkvQzbS30kiVa jM10lIYDfbQxghQ0igLgipR0gOn BcZnMyNFxxbFxwbGFpblxmMVxmc lO8KJdjxtfhAAOuOOsfJ2qnPdTp VZKkvKiiEQuqb1RcZKZqUUMkXXB oJBmgF9zmqF3iwprlGBipXWZivG ncz7jzCrWolQL3OY5atwHgBDSiw EoukvA9miJijWaumL6nsR3wrRrg yV7qxEHvkNZ8myrmAYswOPJzsPY woAozneamaGdsqQrqoofxiE9uRB O1ySHiIUQ3oUDdYUJqTOAaUEChz N29zi0vsUPrqqFgZ0OmR2QulZVf iTbgRfxbdZHtgWBaBo5nxOPvYF3 xHDZvcYGaR1CiWP3zNBTohrrsDU WfIIsgNYXjXGLsZpYhjmLip3Daa L5uCDMaFGKdGX68ncWfqeW6cIGv YWJvdmUgdGVzdHMgaXMgcmVndWx qrAFmGMNfENGyZSGkIQn8kGSgp7 OcE2hyhLQxtfGuH7JfgFEeUPZQB R4hBDsgq5VzfDRjxVEox8IkASBa VHDpoB2hEQRaMB6eNGWyESmaJDX ktiRzst3qsySnJMAuGFRdQ4Aziu bjxKcfkbMwMLFouk5sfyLgUZH0O HRoZSBjbGluaWNhbCBsYWJvcmF0 s7GgKDGdq6LgV1XvlLZlBRFazEU fPLJ9w8WqbQ8tYIzivWCgFFZyYX 5vdCBiZWVuIGNsZWFyZWQgYnkgd RebHEYVWEPsu7QrSJ7pBRRkdEnd LQTpfY3dq4EvICZcw80nRSMXBWi uIFRoZSBGREEgaGFzIGRldGVybW luZWQgdGhhdCBzdWNoIGNsZWFyY A5qCRYlbnBvpFZdd2GmxCEngwCe l7XrwlSrLIKvMGH8NxJbrPXtZFR tifVKaJftjK2irO9ch0RupK9fAT zesmMlvRBgYa3evXFiNC7dJLSbb fFvYmmxMBZyQyZaYCJmJDAdx0G7 BV5sKYUafn1uiwykxEVreU3tjSV lvqWfSV3zNJ7lT7H6eDAhFHCwci Upt4epJNq2iMQjNRQtgEAzaGFaC emnVGH9OHGrMOB0mnZexnVjWQVk xRftnEU9uRQmJKUbURIqDSLzFA2 6B1Vuc9XoZ7pyNO38ISZpYUVbTV OpmnUyg2teCDAjo9hzBYIrwAKfL 5WpCYHmoHJdkvnrObQcFOX7BKZk EDG8dQTaPOMpA2UbuGVveOHmfR3 1CG7kxMV1TY7rKSA8YHzohS0pXv NPqW61dt6azOO3k7OmJF7gJ9JfJ RHsr8U4upFxXKGeRB2ojYTwKNHs IHZhbGlkYXRlZCBvbiBkZWNhbGN jEvkoQCK5yCQvaKYsSvKHBJU4uH RaZCGcx5CkZOXnIGTmvzPnccMcU BAdMLC2xQIbUDWycSFae35fO9u5 CP8glJwgZFOoxVMuDDGkg0DvaQP paYb8rLGfPrVzRTnqNTCrHUyfrI d1zHU1VR2iPZHiM2BkS2dbiMKtL SBhMDYjzCOfbz2hcHRubJ== [facility] Work Phone: Gross Description k9wgrZCbBBObmBIxJPWo MVxhbnN oTTXyuQPwN3IdqzvsYFhuYD8jDB 5kvCiogGRjsPXpDLSyHeTzn1bke 246wUXqb4emWLVTGYqdKKZXOSz4 lXsqM93ub6T7TshhR43jdLBlYWR 9PSGaPXBuiADfDNYmHJJ0POEkqN SaL3yqEWJiLA6cfaqoUBukHCgnW WLbrBZ5ACTkdJHuQ8SaOIQqOQpq NAXprwx4MsXeLg1iaTTpoPhaRFf wYXJkXHBsYWluXGZzMjAgUmVjZW d4JBNmwC2zEh0nbOZbhZ6hoBVhC TigUGGfJyLbKK1wWWXnxOOhLGOw d2SmpPBgUKHhYM87xWUpdSjbKZ4 fqbJ4UZE9VA5stTyijgGpzoOjxs BhEQHbl3L8JMUzicEyrNSenNYjJ OElpLerGTK6qARqNROlOXNxfS4d ON14IMSml5RztHQpTuAipGAqirG zK1ysDKnozGimAtP5znGsTWmqZs K4EYBqOAStvL3tQXJrWGHdjNUmn K9kvdXnhwArpxQkjaUviOFcqBJz qZE7DZDdgJ2ueDmgVDAlS9Pml6T 0dGVzLiBccGFyfQ== [employer] Work Phone: Pathologist Interpretation Location [facility], [address] [place] [address], [facility] [address], CLIA: [id number]; Joint Commission: [id number] [id number]; CAP: [id number] [employer] Phone: Pathology report final diagnosis Narrative n1qaoVUqBQUstLYoCXApPInmspB iOIPrqYQvO5DmhzodVYjkJB0zPD 1mgOmqbKJndXOcTPKwSzKab8bwi 163wNVuc6wsITUNGTxpDOKLGQh2 xMdfH18nz4K7OpchO50qwAPqVVV 5ZSLqOBFvqUVkJTNnMFN0JAVokR TiA7xcFUSmXD8icpskUSsiELilI GZtwBS6NHBvgSGmI7DmNBVhKIss NGCayay9ElQqMo7tiIWdtUzrDKf xBGGeRNEoPHiiDJOdPhAiHX7DC6 1NLJALLN6rXKIKI5IZIZwbaOHcC ETzTYZxjTZdZ1ITLvEaMFJPYRAC OUEwS0LFAOPSTO7EMCuCONAAKXR GVXhKXJ6LWZfDCoOWUAsYTJSXQN VNLlxwYXJ9 [facility] [employer] Work Phone: [facility] Work Phone: BASIC METABOLIC PANELon 01-15 Anion gap [Moles/Vol] 8 mmol/L Normal 3-13 [facility] Comment on above: Performed By: #### L [id number] ####Cuprous Chloride Helper: LACY OROSCO ([phone])[address] Calcium [Mass/Vol] 9.4 mg/dL Normal 8.8-10.0 [facility] Comment on above: Performed By: #### L AB15 ####Cuprous Chloride Helper: LACY OROSCO ([phone])[facility])[address] [place] [address] Chloride [Moles/Vol] 110 mmol/L High 98-107 [facility] Comment on above: Performed By: #### L AB15 ####Cuprous Chloride Helper: LACY OROSCO ([phone])[facility])[address] [place] [address] CO2 [Moles/Vol] 20 mmol/L Low 23-31 [facility] Comment on above: Performed By: #### L AB15 ####Cuprous Chloride Helper: LACY OROSCO ([phone])[facility] ([facility])[address] [place] [address] Creatinine [Mass/Vol] 1.46 mg/dL High 0.57-1.11 [facility] Comment on above: Performed By: #### L AB15 ####Cuprous Chloride Helper: LACY OROSCO ([phone])[facility])[address] [place] [address] [place] GLOMERULAR FILTRATION RATE ML/MIN/1.73 SQ M.PREDICTED 39.5 mL/min/1.73m*2 Low >60.0 [facility] Comment on above: Result Comment: Calc ulation based on the Chronic Kidney Disease Epidemiology Collaboration (CKD-EPI) equation refit without adjustment for race Performed By: #### L AB15 ####Cuprous Chloride Helper: LACY OROSCO ([phone])[facility])[address] [place] [address] [place] Glucose [Mass/Vol] 131 mg/dL High 82-115 [facility] Comment on above: Performed By: #### L AB15 ####Cuprous Chloride Helper: LACY OROSCO ([phone])[facility])[address] [place] [address] [place] Potassium [Moles/Vol] 4.3 mmol/L Normal 3.5-5.1 [facility] Comment on above: Result Comment: [facility] potassium values may be up to 0.5 mmol/L lower than serum values. Performed By: #### L AB15 ####Cuprous Chloride Helper: LACY OROSCO ([phone])[facility] ([facility])[address] [place] [address] [place] Sodium [Moles/Vol] 138 mmol/L Normal 136-145 [facility] Comment on above: Performed By: #### L AB15 ####Cuprous Chloride Helper: LACY OROSCO ([phone])[facility] ([facility])[address] [place] [address] [place] Urea nitrogen [Mass/Vol] 26 mg/dL High 9-23 [facility] Comment on above: Performed By: #### L AB15 ####Cuprous Chloride Helper: LACY OROSCO ([phone])[facility] ([facility])[address] [place] [address] Bacteria identified Cx Nom ( U)Ordered By: Michelle Merrill on 01-25-2025 Interpretation and review of laboratory results Abnormal [facility] Bacteria identified Cx Nom ( U)on 01-25-2025 Interpretation and review of laboratory results Abnormal [facility] Basic metabolic 1998 panelon 01-25-2025 Anion gap [Moles/Vol] 8 mmol/L 3 - 13 mmol/L [facility] Calcium [Mass/Vol] 9.4 mg/dL 8.8 - 10. 0 mg/dL [facility] Chloride [Moles/Vol] 110 mmol/L High 98 - 10 7 mmol/L [facility] CO2 [Moles/Vol] 20 mmol/L Low 23 - 31 mmol/L [facility] Creatinine [Mass/Vol] 1.46 mg/dL High 0.57 - 1.11 mg/dL [facility] GFR/1.73 sq M.predicted (S/P/Bld) [Vol rate/Area] 39.5 mL/min Low - PINF [facility] Comment on above: Calculation based on the Chronic Kidney Disease Epidemiology Collaboration (CKD-EPI) equation refit without adjustment for race Glucose [Mass/Vol] 131 mg/dL High 82 - 115 mg/dL [facility] Interpretation and review of laboratory results Abnormal [facility] Potassium [Moles/Vol] 4.3 mmol/L 3.5 - 5.1 mmol/L [facility] Comment on above: Plasma potassium ines ues may be up to 0.5 mmol/L lower than serum values. Sodium [Moles/Vol] 138 mmol/L 136 - 145 mmol/L [facility] Urea nitrogen [Mass/Vol] 26 mg/dL High 9 - 23 mg/dL [facility] CBC (HEMOGRAM)on 01-25-2025 Erythrocyte distribution width (RBC) [Ratio] 13.6 % Normal 11.5-15.0 [facility] Comment on above: Performed By: #### L [id number] ####Cuprous Chloride Helper: LACY OROSCO ([phone])[facility] [address] Hematocrit (Bld) [Volume fraction] 31.2 % Low 35.0-47.0 [facility] Comment on above: Performed By: #### L [id number] ####Cuprous Chloride Helper: LACY OROSCO ([phone])[facility])[address] [place] [address] Hemoglobin (Bld) [Mass/Vol] 10.2 g/dL Low 11.7-16.0 [facility] Comment on above: Performed By: #### L [id number] ####Cuprous Chloride Helper: LACY OROSCO ([phone])[address] IPF 2 Normal [facility] Comment on above: Performed By: #### L [id number] ####Cuprous Chloride Helper: LACY OROSCO ([phone])[facility])[address] [place] [address] MCH (RBC) [Entitic mass] 26.6 pg Normal 26.0-34.0 [facility] Comment on above: Performed By: #### L [id number] ####Cuprous Chloride Helper: LACY OROSCO ([phone])[facility])[address] [place] [address] MCHC 32.7 % Normal 30.5-36.0 [facility] Comment on above: Performed By: #### L [id number] ####Cuprous Chloride Helper: LACY OROSCO ([phone])[facility])[address] [place] [address] MCV (RBC) [Entitic vol] 81.5 fL Normal 77.0-99.0 [facility] Comment on above: Performed By: #### L [id number] ####Cuprous Chloride Helper: LACY OROSCO ([phone])[address] Platelet mean volume (Bld) [Entitic vol] 10.3 fL Normal 9.0-12.7 [facility] Comment on above: Performed By: #### L [id number] ####Cuprous Chloride Helper: LACY OROSCO ([phone])[facility] ([facility])[address] [place] [address] Platelets (Bld) [#/Vol] 353 10*3/uL Normal 140-440 [facility] Comment on above: Performed By: #### L [id number] ####Cuprous Chloride Helper: LACY OROSCO ([id number])[facility] ([facility])[address] [place] [address] RBC (Bld) [#/Vol] 3.83 10*6/uL Normal 3.80-5.20 [facility] Comment on above: Performed By: #### L [id number] ####Cuprous Chloride Helper: LACY OROSCO ([phone])[facility] ([facility])[address] [place] [address] WBC (Bld) [#/Vol] 7.1 10*3/uL Normal 3.6-10.7 [facility] Comment on above: Performed By: #### L [id number] ####Cuprous Chloride Helper: LACY OROSCO ([phone])[facility] ([facility])[address] [place] [address] CBC panel Auto (Bld)Ordered By: Kristie Fowler on 01-25-2025 Erythrocyte distribution width (RBC) [Ratio] 13.6 % 11.5 - 15.0 % [facility] Hematocrit (Bld) [Volume fraction] 31.2 % Low 35.0 - 47.0 % [facility] Hemoglobin (Bld) [Mass/Vol] 10.2 g/dL Low 11.7 - 16.0 g/dL [facility] Interpretation and review of laboratory results Abnormal [facility] IPF 2 [facility] MCH (RBC) [Entitic mass] 26.6 pg 26.0 - 34.0 pg [facility] MCHC (RBC) [Mass/Vol] 32.7 % 30.5 - 36.0 % [facility] MCV (RBC) [Entitic vol] 81.5 fL 77.0 - 99.0 fL [facility] Platelet mean volume (Bld) [Entitic vol] 10.3 fL 9.0 - 12.7 fL [facility] Platelets (Bld) [#/Vol] 353 10*3/uL 140 - 440 10*3/uL [facility] RBC (Bld) [#/Vol] 3.83 10*6/uL 3.80 - 5.20 10*6/uL [facility] WBC (Bld) [#/Vol] 7.1 10*3/uL 3.6 - 10.7 10*3/uL [facility] Consulton 01-25-2025 Consult ------- Attestation signed by Pepito Steve MD at 01/25/2025 4:09 PM Patient was seen and examined by me. Notes reviewed and plan discussed with the PA. Agree with above note except Any variance is noted below. Noted previous episodes of borderline blood pressure with systolic into the 90s. Status post IV fluid. Now the blood pressures are within normal range and acceptable. Renal function near baseline. Noted recommendations from urology. Noted no significant urine retention. Input from gynecology services noted. UA to be repeated as an outpatient. Continue to trend hemoglobin. Continue antibiotics: Per primary. Given nephrolithiasis, advised to maintain low oxalate diet and increased p.o. intake of fluid along with low-salt and low glucose diet. Pepito Steve MD [facility] [phone] [facility] Nephrology Consultation Note Reason for consultation: CKD 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: Vaginal bleeding History of Presenting Illness Patient is a 64 y.o. female with PMHx noted below who presented to [facility] ED on 01/22/2025 as transfer from [place] ED with chief complaint listed above. Per report at [facility] ED pt found to be hypotensive and tachycardic. Hgb dropped from baseline ~ 12 to 8. Pt given 1 uPRBC, 2nd unit started but had to be stopped d/t fever. TVUS showed fluid filled endometrium with endometrial thickness of 12.[address] A/P with thickened bladder wall and heterogenous debris. Patient transferred to [facility] ED for AUTOMOTIVE SERVICE PROFESSIONAL evaluation. Patient admitted for observation to REFERENCE TEST CLERK service given acute blood loss anemia requiring transfusion. Started on Megace 20 mg BID. Urology consulted given abnormal bladder findings. Nephrology is consulted for evaluation and management of CKD3b, patient known to our group, follows outpatient with Dr Steve. Scr is currently 1.46, worsening from 1.37 prior. As high as 1.83 on admission. Patient's baseline creatinine appears to be 1.5-1.7. Home medications notable for fludrocortisone 0.2 mg in AM and 0.1 mg in PM, mycophenolate 500 mg BID, protonix Patient is not on Andrea inhibitors or ARB. No diuretics. Patient reports not using NSAIDS. No recent exposure to IV contrast. No relative hypotension noted. No signs of hemodynamic fluctuations. Imaging revealed mild bilateral hydronephrosis, a 4 mm stone in the lower R kidney, generalized bladder wall thickening Past Medical/Surgical History Medical History[1] Surgical History[2] Review of Systems All 12 systems reviewed and are negative except for what is mentioned in the HPI. Allergies Azithromycin and Seasonal Family History Family History[3] Social History Social History[4] Medications Prescriptions Prior to Admission[5] Current Medications: Scheduled Meds[6] Continuous Infusions:Continuous Meds[7] PRN Meds:PRN Meds[8] Physical Exam Vitals: 01/24/25 1705 01/24/25 2143 01/25/25 0109 01/25/25 0420 BP: 134/86 121/89 114/76 135/85 BP Location: Right arm Right arm Right arm Right arm Patient Position: Lying Sitting Lying Lying Pulse: 87 98 87 92 Resp: 16 Temp: 36.3 ?C (97.4 ?F) 36.8 ?C (98.3 ?F) 36.4 ?C (97.6 ?F) 36.4 ?C (97.6 ?F) TempSrc: Temporal Temporal Temporal Temporal SpO2: 95% 95% 98% 99% Weight: Height: Input / Output: 24 HR: Intake/Output Summary (Last 24 hours) at 01/25/2025 1024 Last data filed at 01/25/2025 0416 Gross per 24 hour Intake 1689 ml Output 400 ml Net 1289 ml IV Intake: P.O. (mL): 300 mL Dowd: [REMOVED] Urethral Catheter Iarjqyxz-wtx-Vivmue (mL): 1700 mL General: Comfortable appearing, cooperative to history and physical exam. Head: NCAT Eye: anicteric sclera, conjunctiva clear Mouth: mucus membrane semi-moist Neck: Supple Chest: B/L equal air entry, no crackles, no accessory muscles usage. CV: s1s2 heard RRR Abdomen: NT, non-distended, soft bowel sounds present, no palpable masses Extremities: no peripheral edema, no cyanosis or clubbing Skin: Warm, no rash Neurological: Oriented times three, Speech clear coherent Psychiatric: normal insight and judgement, good recall Data Recent Labs 01/23/25 0544 01/24/25 0501/25/25 0320 WBC 14.3* 10.2 7.1 HGB 8.6* 8.9* 10.2* HCT 26.3* 27.0* 31.2* MCV 80.7 82.1 81.5 PLT 227 245 353 Recent Labs 01/23/25 0544 01/24/25 0520 01/25/25 0320 NA 132* 135* 138 K 3.0* 3.5 4.3 CL 105 109* 110* CO2 22* 21* 20* GLUCOSE 99 94 131* MG 1.8 1.9 -- BUN 20 19 26* CREATININE 1.40* 1.37* 1.46* Albumin: No components found for: LABALBU Calcium: Lab Results Component Value Date CALCIUM 9.4 01/25/2025 Ionized Calcium: No components found for: IONCA Magnesium: Lab Results Component Value Date MG 1.9 01/24/2025 Phosphorus: No results found for: PHOS Imaging: reviewed (more content not included)... Normal [facility] - Microbiology an d Antimicrobial susceptibilityOrdered By: Michelle Merrill on 01-25-2025 Bacteria identified Cx Nom (U) >100,000 CFU/mL Escherichia coli Abnormal [facility] Comment on above: For identification a nd/or sensitivity, refer to culture collected on: 01/22/2025 at 20:27 ([id number]) Bacteria identified Cx Nom (U) 50,000-90,000 CFU/mL Streptococcus agalactiae (Group B) Abnormal [facility] Comment on above: Susceptibility testi ng not performed. Beta-hemolytic streptococci are universally susceptible to beta-lactam antibiotics. If patient is beta-lactam allergic, providers should call the [facility] ([phone]) within 3 days to request susceptibility testing. Laboratory - Microbiology an d Antimicrobial susceptibilityon 01-25-2025 Bacteria identified Cx Nom (U) >100,000 CFU/mL Escherichia coli Abnormal [facility] Bacteria identified Cx Nom (U) >100,000 CFU/mL Streptococcus agalactiae (Group B) Abnormal [facility] Comment on above: Susceptibility testi ng not performed. Beta-hemolytic streptococci are universally susceptible to beta-lactam antibiotics. If patient is beta-lactam allergic, providers should call the [facility] ([phone]) within 3 days to request susceptibility testing. BASIC METABOLIC PANELon 01-15 Anion gap [Moles/Vol] 5 mmol/L Normal 3-13 [facility] Comment on above: Performed By: #### L [id number], [id number], LAB69, LAB15, LAB68 ####Cuprous Chloride Helper: LACY OROSCO ([phone])[address] Calcium [Mass/Vol] 8.7 mg/dL Low 8.8-10.0 [facility] Comment on above: Performed By: #### L AB67, [id number], LAB69, LAB15, LAB68 ####Cuprous Chloride Helper: LACY OROSCO ([phone])[facility] ([facility])[address] [place] [address] Chloride [Moles/Vol] 109 mmol/L High 98-107 [facility] Comment on above: Performed By: #### L AB67, [id number], LAB69, LAB15, LAB68 ####Cuprous Chloride Helper: LACY OROSCO ([phone])[facility])[address] [place] [address] CO2 [Moles/Vol] 21 mmol/L Low 23-31 [facility] Comment on above: Performed By: #### L AB67, [id number], LAB69, LAB15, LAB68 ####Cuprous Chloride Helper: LACY OROSCO ([phone])[facility])[address] [place] [address] Creatinine [Mass/Vol] 1.37 mg/dL High 0.57-1.11 [facility] Comment on above: Performed By: #### L AB67, [id number], LAB69, LAB15, LAB68 ####Cuprous Chloride Helper: LACY OROSCO ([phone])[facility])[address] [place] [address] GLOMERULAR FILTRATION RATE ML/MIN/1.73 SQ M.PREDICTED 42.7 mL/min/1.73m*2 Low >60.0 [facility] Comment on above: Result Comment: Calc ulation based on the Chronic Kidney Disease Epidemiology Collaboration (CKD-EPI) equation refit without adjustment for race Performed By: #### L AB67, [id number], LAB69, LAB15, LAB68 ####Cuprous Chloride Helper: LACY OROSCO ([phone])[address] Glucose [Mass/Vol] 94 mg/dL Normal 82-115 [facility] Comment on above: Performed By: #### L AB67, [id number], LAB69, LAB15, LAB68 ####Cuprous Chloride Helper: LACY OROSCO ([phone])[facility])[address] [place] [address] [place] Potassium [Moles/Vol] 3.5 mmol/L Normal 3.5-5.1 [facility] Comment on above: Result Comment: [facility] potassium values may be up to 0.5 mmol/L lower than serum values. Performed By: #### L AB67, [id number], LAB69, LAB15, LAB68 ####Cuprous Chloride Helper: LACY OROSCO ([phone])[facility])[address] [place] [address] Sodium [Moles/Vol] 135 mmol/L Low 136-145 [facility] Comment on above: Performed By: #### L AB67, QLU522, LAB69, LAB15, LAB68 ####Cuprous Chloride Helper: LACY OROSCO ([phone])[facility] ([facility])[address] [place] [address] Urea nitrogen [Mass/Vol] 19 mg/dL Normal 9-23 [facility] Comment on above: Performed By: #### L AB67, PLC787, LAB69, LAB15, LAB68 ####Cuprous Chloride Helper: LACY OROSCO ([phone])[facility] ([facility])[address] [place] [address] Basic metabolic 1998 panelon 01-24-2025 Anion gap [Moles/Vol] 5 mmol/L 3 - 13 mmol/L [facility] Calcium [Mass/Vol] 8.7 mg/dL Low 8.8 - 10. 0 mg/dL [facility] Chloride [Moles/Vol] 109 mmol/L High 98 - 10 7 mmol/L [facility] CO2 [Moles/Vol] 21 mmol/L Low 23 - 31 mmol/L [facility] Creatinine [Mass/Vol] 1.37 mg/dL High 0.57 - 1.11 mg/dL [facility] GFR/1.73 sq M.predicted (S/P/Bld) [Vol rate/Area] 42.7 mL/min Low - PINF [facility] Comment on above: Calculation based on the Chronic Kidney Disease Epidemiology Collaboration (CKD-EPI) equation refit without adjustment for race Glucose [Mass/Vol] 94 mg/dL 82 - 115 mg/dL [facility] Potassium [Moles/Vol] 3.5 mmol/L 3.5 - 5.1 mmol/L [facility] Comment on above: Plasma potassium ines ues may be up to 0.5 mmol/L lower than serum values. Sodium [Moles/Vol] 135 mmol/L Low 136 - 145 mmol/L [facility] Urea nitrogen [Mass/Vol] 19 mg/dL 9 - 23 mg/dL [facility] CBC (HEMOGRAM)on 01-24-2025 Erythrocyte distribution width (RBC) [Ratio] 13.9 % Normal 11.5-15.0 [facility] Comment on above: Performed By: #### Glory AB294, [id number] ####Cuprous Chloride Helper: LACY OROSCO ([phone])[address] Hematocrit (Bld) [Volume fraction] 27.0 % Low 35.0-47.0 [facility] Comment on above: Performed By: #### Glory AB294, [id number] ####Cuprous Chloride Helper: LACY OROSCO ([phone])[address] Hemoglobin (Bld) [Mass/Vol] 8.9 g/dL Low 11.7-16.0 [facility] Comment on above: Performed By: #### Glory AB294, [id number] ####Cuprous Chloride Helper: LACY OROSCO ([phone])[address] MCH (RBC) [Entitic mass] 27.1 pg Normal 26.0-34.0 [facility] Comment on above: Performed By: #### Glory AB294, TJH522 ####Cuprous Chloride Helper: LACY OROSCO ([phone])[address] MCHC 33.0 % Normal 30.5-36.0 [facility] Comment on above: Performed By: #### Glory AB294, JVL574 ####Cuprous Chloride Helper: LACY OROSCO ([phone])[facility])[address] [place] [address] MCV (RBC) [Entitic vol] 82.1 fL Normal 77.0-99.0 [facility] Comment on above: Performed By: #### L AB294, EHY661 ####Cuprous Chloride Helper: LACY OROSCO ([phone])[address] Platelet mean volume (Bld) [Entitic vol] 10.8 fL Normal 9.0-12.7 [facility] Comment on above: Performed By: #### L AB294, [id number] ####Cuprous Chloride Helper: LACY OROSCO ([phone])[facility] ([facility])[address] [place] [address] Platelets (Bld) [#/Vol] 245 10*3/uL Normal 140-440 [facility] Comment on above: Performed By: #### Glory AB294, ESL710 ####Cuprous Chloride Helper: LACY OROSCO ([phone])[facility] ([facility])[address] [place] [address] RBC (Bld) [#/Vol] 3.29 10*6/uL Low 3.80-5.20 [facility] Comment on above: Performed By: #### L AB294, [id number] ####Cuprous Chloride Helper: LACY OROSCO ([phone])[facility] ([facility])[address] [place] [address] WBC (Bld) [#/Vol] 10.2 10*3/uL Normal 3.6-10.7 [facility] Comment on above: Performed By: #### L AB294, JDD600 ####Cuprous Chloride Helper: LACY OROSCO ([phone])[facility] ([facility])[address] [place] [address] CBC panel Auto (Bld)on 01-24 Erythrocyte distribution width (RBC) [Ratio] 13.9 % 11.5 - 15.0 % [facility] Hematocrit (Bld) [Volume fraction] 27 % Low 35.0 - 47.0 % [facility] Hemoglobin (Bld) [Mass/Vol] 8.9 g/dL Low 11.7 - 16.0 g/dL [facility] Interpretation and review of laboratory results Abnormal [facility] MCH (RBC) [Entitic mass] 27.1 pg 26.0 - 34.0 pg [facility] MCHC (RBC) [Mass/Vol] 33 % 30.5 - 36.0 % [facility] MCV (RBC) [Entitic vol] 82.1 fL 77.0 - 99.0 fL [facility] Platelet mean volume (Bld) [Entitic vol] 10.8 fL 9.0 - 12.7 fL [facility] Platelets (Bld) [#/Vol] 245 10*3/uL 140 - 440 10*3/uL [facility] RBC (Bld) [#/Vol] 3.29 10*6/uL Low 3.80 - 5.20 10*6/uL [facility] WBC (Bld) [#/Vol] 10.2 10*3/uL 3.6 - 10.7 10*3/uL [facility] FERRITINon 01-24-2025 Ferritin [Mass/Vol] 145 ng/mL Normal 5-204 [facility] Comment on above: Result Comment: RAIMUNDO Salcedo COMMENTS: Ferritin levels below 10 ng/mL have been reported as indicative of iron deficiency anemia. Performed By: #### L AB67, RJJ611, LAB69, LAB15, LAB68 ####Cuprous Chloride Helper: LACY OROSCO ([phone])[facility] ([facility])[address] [place] [address] FOLATEon 01-24-2025 FOLATE RESULT 13.5 ng/mL Normal 7.0-31.4 [facility] Comment on above: Performed By: #### L AB67, [id number], LAB69, LAB15, LAB68 ####Cuprous Chloride Helper: LACY OROSCO ([phone])[facility] ([facility])[address] [place] [address] Ferritin [Mass/Vol]on 2024 Ferritin levels belo w 10 ng/mL have been reported as indicative of iron deficiency anemia. [facility] IRON AND TIBCon 01-24-2025 IRON BINDING CAPACITY 159 ug/dL Low 250-450 [facility] Comment on above: Performed By: #### L AB829 ####Cuprous Chloride Helper: LACY OROSCO ([phone])[facility] ([facility])[address] [place] [address] IRON SATURATION 8.2 % Low 20.0-50.0 [facility] Comment on above: Performed By: #### L AB829 ####Cuprous Chloride Helper: LACY [phone])[facility] [place] [address] IRON, TOTAL 13 ug/dL Low 50-170 [facility] Comment on above: Performed By: #### L AB829 ####Cuprous Chloride Helper: LACY OROSCO ([phone])[facility] ([facility])[address] [place] [address] Iron and Iron binding capaci ty panelon 01-24-2025 Interpretation and review of laboratory results Abnormal [facility] Iron [Mass/Vol] 13 ug/dL Low 50 - 170 ug/dL [facility] Iron binding capacity [Mass/Vol] 159 ug/dL Low 250 - 450 ug/dL [facility] Iron saturation [Mass fraction] 8.2 % Low 20.0 - 50.0 % [facility] Laboratory - Chemistry and C hemistry - challengeon 01-24-2025 Magnesium [Mass/Vol] 1.9 mg/dL 1.6 - 2 .6 mg/dL [facility] Cobalamin (Vitamin B12) [Mass/Vol] 868 pg/mL High 213 - 816 pg/mL [facility] Ferritin [Mass/Vol] 145 ng/mL 5 - 204 ng/mL [facility] Folate [Mass/Vol] 13.5 ng/mL 7.0 - 31.4 ng/mL [facility] MAGNESIUMon 01-24-2025 Magnesium [Mass/Vol] 1.9 mg/dL Normal 1.6-2.6 [facility] Comment on above: Result Comment: RAIMUNDO Salcedo COMMENTS: Higher values can be expected in females during menses. Performed By: #### L AB67, [id number], LAB69, LAB15, LAB68 ####Cuprous Chloride Helper: LACY OROSCO ([phone])[facility] ([facility])[address] [place] [address] Magnesium [Mass/Vol]on 01-24 Interpretation and review of laboratory results Normal [facility] Higher values can be expected in females during menses. [facility] No Panel Informationon 01-24 There is no interpre tation needed for this exam. IMAGING Interpretation and review of laboratory results Normal [facility] Interpretation and review of laboratory results Abnormal [facility] Op Noteon 01-24-2025 Op Note Date: 01/24/2025 Loca tion: [facility] OR Name: Eren Merchant, : 1960, Diagnosis Pre-op Diagnosis * Vaginal bleeding [N93.9] * Post-menopausal bleeding [N95.0] Post-op Diagnosis * Vaginal bleeding [N93.9] * Post-menopausal bleeding [N95.0] Procedures HYSTEROSCOPY, CYSTOSCOPY 90189 - [place] HYSTEROSCOPY DIAGNOSTIC SEPARATE PROCEDURE Surgeons * Becca Joseph - Primary Procedure Summary Anesthesia: General ASA: II Estimated Blood Loss: None Drains: [REMOVED] Urethral Catheter Straight-tip (Removed) Catheter Indications Acute urinary retention or urinary obstruction 01/24/25 0820 Site Assessment Clean;Skin intact 01/24/25 0820 Collection Container Standard drainage bag 01/24/25 0820 Securement Method Securing device 01/24/25 0820 Catheter Best Practices Bag below bladder 01/24/25 0820 Catheter Status Draining 01/24/25 0820 Output (mL) 1700 mL 01/24/25 0523 Specimens ID Source Type Tests Collected By Collected At Frozen? Priority Lab ID 1 Endometrium Tissue TISSUE EXAM Becca Joseph MD 01/24/25 1537 No Routine Description: ENDOMETRIAL BIOPSY Staff: Student Financial Aid Manager: Jay Rothman RN Scrub Person: Kane Valverde Resident: Christi Garces MD Findings: bladder was examined and found to be small capacity. Additionally, bladder wall mucosa was friable. Bilateral ureteral orifice were identified in expected anatomic location. Bilateral retrograde pyelograms were performed. Complications: None; patient tolerated the procedure well. Specimens Collected: Order Name Source Comment Collection Info Order Time TISSUE EXAM Endometrium Collected By: Becca Joseph MD 01/24/2025 3:39 PM Wound Class: Class I: Clean Blood Products: None Prophylactic Antibiotics: [facility] Op Note Javier Rosenberg 02/01/2025 at 6:00 PM UROLOGY OPERATIVE REPORT PATIENT NAME: Eren Merchant DATE OF : 1960 TODAY'S DATE: 02/01/2025 PreOp Dx::Bilateral hydronephrosis recurrent infections severe overactive bladder bladder wall thickening PostOp Dx: Same Operation : Cystoscopy retrograde pyelogram Surgeon Katherine Bowen MD Assist Jay Black Anesthesia:general lma Ebl: Drains , Specimen: Complications None; patient tolerated the procedure well. Findings: INDICATIONS: Very friable bladder mucosa, very small capacity bladder. Both ureters in the normal position. Retrograde pyelogram showed no filling defects no obvious mass. Bilateral hydronephrosis likely due to very high pressure bladder. Eren Merchant , is a 64 y.o. female who presents with bilateral hydronephrosis bladder wall thickening. Eren Merchant presents for cystoscopy retrograde pyelogram. The risks benefits and alternatives were explained and the patient wishes to proceed. PROCEDURE: Eren Merchant Was brought to the operating room. Thorough time out was performed and everyone present was in agreement. Patient was placed on OR table. Anesthesia and lines were maintained by the anesthesia team. She was prepped and draped in usual fashion placed in lithotomy position. Cystoscope was inserted in urethra. There is no stricture or tumor. Bladder mucosa is very friable bladder wall is thickened. Both ureters in normal position effluxing clear urine the there is no tumor stone foreign body or fistula. 8 [place] cone-tip catheter was used retrograde pyelograms were performed showing dilation of the ureter from the bladder to the kidney but no obvious filling defect or mass. The bladder was drained the case was turned over to AUTOMOTIVE SERVICE PROFESSIONAL for hysteroscopy. Patient will follow-up with Dr. Yang and urogynecology for further evaluation of her neurogenic bladder. Katherine Bowen MD 02/01/25 6:00 PM [facility] Progress Noteon 01-24-2025 Progress Note Report called to J Luis roldan RN on H5 [facility] Progress Note Spoke with patient's Son Shelton with update via phone [facility] Progress Note Vancomycin therapy h as been discontinued by Dr. Strange on 01/24/25. Thank you for the consult. Pharmacy signing off for vancomycin dosing. Donna Rivera [facility] Date: 01/24/25 Time: 12:38 PM [facility] Progress Note Nutrition rescreen completed. Chart reviewed. Patient to be monitored and followed by the diet field artillery targeting technician. [facility] RETICULOCYTESon 01-24-2025 Reticulocytes/100 RBC (Bld) 1.16 % Normal [facility] Comment on above: Result Comment: Newb orn < 5% Adults 0.4 - 2.0% Performed By: #### L AB294, [id number] ####Cuprous Chloride Helper: LACY OROSCO ([phone])[facility] ([facility])[address] [place] [address] Reticulocytes panel (Bld)Ord ered By: Deann Abebe on 01-24-2025 Reticulocytes/100 RBC (Bld) 1.16 % [facility] Comment on above: < 5% Adults 0.4 - 2.0% [facility] VITAMIN B12on 01-24-2025 Cobalamin (Vitamin B12) [Mass/Vol] 868 pg/mL High 213-816 [facility] Comment on above: Performed By: #### L AB67, [id number], LAB69, LAB15, LAB68 ####Cuprous Chloride Helper: LACY OROSCO ([phone])[facility] ([facility])[address] [place] [address] [phone] 01-23-2025 [id number] [facility]ACS to take over a s attending at this time as infection is primary reason for continued admission. Normal [facility] BASIC METABOLIC PANELon Anion gap [Moles/Vol] 5 mmol/L Normal 3-13 [facility] Comment on above: Performed By: #### L [id number], LAB15, GDR294 ####Cuprous Chloride Helper: LACY OROSCO ([phone])[facility] ([facility])[address] [place] [address] Calcium [Mass/Vol] 8.5 mg/dL Low 8.8-10.0 [facility] Comment on above: Performed By: #### L [id number], LAB15, QLC821 ####Cuprous Chloride Helper: LACY OROSCO ([phone])[facility])[address] [place] [address] Chloride [Moles/Vol] 105 mmol/L Normal 98-107 [facility] Comment on above: Performed By: #### L [id number], LAB15, PSY392 ####Cuprous Chloride Helper: LACY OROSCO ([phone])[facility])[address] [place] [address] CO2 [Moles/Vol] 22 mmol/L Low 23-31 [facility] Comment on above: Performed By: #### Glory [id number], LAB15, EMP872 ####Cuprous Chloride Helper: LACY OROSCO ([phone])[facility])[address] [place] [address] Creatinine [Mass/Vol] 1.40 mg/dL High 0.57-1.11 [facility] Comment on above: Performed By: #### Glory FLANAGAN21, LAB15, SMM723 ####Cuprous Chloride Helper: LACY OROSCO ([phone])[address] GLOMERULAR FILTRATION RATE ML/MIN/1.73 SQ M.PREDICTED 41.6 mL/min/1.73m*2 Low >60.0 [facility] Comment on above: Result Comment: Calc ulation based on the Chronic Kidney Disease Epidemiology Collaboration (CKD-EPI) equation refit without adjustment for race Performed By: #### Glory DOVE, LAB15, GVH757 ####Cuprous Chloride Helper: LACY OROSCO ([phone])[address] Glucose [Mass/Vol] 99 mg/dL Normal 82-115 [facility] Comment on above: Performed By: #### Glory FLANAGAN21, LAB15, SVW327 ####Cuprous Chloride Helper: LACY OROSCO ([phone])[address] Potassium [Moles/Vol] 3.0 mmol/L Low 3.5-5.1 [facility] Comment on above: Result Comment: [facility] potassium values may be up to 0.5 mmol/L lower than serum values. Performed By: #### L [id number], LAB15, OAI509 ####Cuprous Chloride Helper: LACY OROSCO ([phone])[facility] ([facility])[address] [place] [address] Sodium [Moles/Vol] 132 mmol/L Low 136-145 [facility] Comment on above: Performed By: #### L [id number], LAB15, AIQ657 ####Cuprous Chloride Helper: LACY OROSCO ([phone])[facility] [place] [address] Urea nitrogen [Mass/Vol] 20 mg/dL Normal 9-23 [facility] Comment on above: Performed By: #### L [id number], LAB15, DRT174 ####Cuprous Chloride Helper: LACY OROSCO ([phone])[facility] [place] [address] Basic metabolic 1998 panelon 01-23-2025 Anion gap [Moles/Vol] 5 mmol/L 3 - 13 mmol/L [facility] Calcium [Mass/Vol] 8.5 mg/dL Low 8.8 - 10. 0 mg/dL [facility] Chloride [Moles/Vol] 105 mmol/L 98 - 10 7 mmol/L [facility] CO2 [Moles/Vol] 22 mmol/L Low 23 - 31 mmol/L [facility] Creatinine [Mass/Vol] 1.4 mg/dL High 0.57 - 1.11 mg/dL [facility] GFR/1.73 sq M.predicted (S/P/Bld) [Vol rate/Area] 41.6 mL/min Low - PINF [facility] Comment on above: Calculation based on the Chronic Kidney Disease Epidemiology Collaboration (CKD-EPI) equation refit without adjustment for race Glucose [Mass/Vol] 99 mg/dL 82 - 115 mg/dL [facility] Interpretation and review of laboratory results Abnormal [facility] Potassium [Moles/Vol] 3 mmol/L Low 3.5 - 5.1 mmol/L [facility] Comment on above: Plasma potassium ines ues may be up to 0.5 mmol/L lower than serum values. Sodium [Moles/Vol] 132 mmol/L Low 136 - 145 mmol/L [facility] Urea nitrogen [Mass/Vol] 20 mg/dL 9 - 23 mg/dL [facility] CBC (HEMOGRAM)on 01-23-2025 Erythrocyte distribution width (RBC) [Ratio] 14.0 % Normal 11.5-15.0 [facility] Comment on above: Performed By: #### L AB294 ####Cuprous Chloride Helper: LACY OROSCO ([phone])[facility])[address] [place] [address] Hematocrit (Bld) [Volume fraction] 26.3 % Low 35.0-47.0 [facility] Comment on above: Performed By: #### L AB294 ####Cuprous Chloride Helper: LACY OROSCO ([phone])[facility])[address] [place] [address] Hemoglobin (Bld) [Mass/Vol] 8.6 g/dL Low 11.7-16.0 [facility] Comment on above: Performed By: #### L AB294 ####Cuprous Chloride Helper: LACY OROSCO ([phone])[address] MCH (RBC) [Entitic mass] 26.4 pg Normal 26.0-34.0 [facility] Comment on above: Performed By: #### L AB294 ####Cuprous Chloride Helper: LACY OROSCO ([phone])[address] MCHC 32.7 % Normal 30.5-36.0 [facility] Comment on above: Performed By: #### L AB294 ####Cuprous Chloride Helper: LACY OROSCO ([phone])[facility])[address] [place] [address] MCV (RBC) [Entitic vol] 80.7 fL Normal 77.0-99.0 [facility] Comment on above: Performed By: #### L AB294 ####Cuprous Chloride Helper: LACY OROSCO ([phone])[address] Platelet mean volume (Bld) [Entitic vol] 10.5 fL Normal 9.0-12.7 [facility] Comment on above: Performed By: #### L AB294 ####Cuprous Chloride Helper: LACY OROSCO ([phone])[facility] ([facility])[address] [place] [address] Platelets (Bld) [#/Vol] 227 10*3/uL Normal 140-440 [facility] Comment on above: Performed By: #### L AB294 ####Cuprous Chloride Helper: LACY OROSCO ([phone])[facility] ([facility])[address] [place] [address] RBC (Bld) [#/Vol] 3.26 10*6/uL Low 3.80-5.20 [facility] Comment on above: Performed By: #### L AB294 ####Cuprous Chloride Helper: LACY OROSCO ([phone])[facility] ([facility])[address] [place] [address] WBC (Bld) [#/Vol] 14.3 10*3/uL High 3.6-10.7 [facility] Comment on above: Performed By: #### L AB294 ####Cuprous Chloride Helper: LACY OROSCO ([phone])[facility] ([facility])[address] [place] [address] CBC panel Auto (Bld)on 01-23 Erythrocyte distribution width (RBC) [Ratio] 14 % 11.5 - 15.0 % [facility] Hematocrit (Bld) [Volume fraction] 26.3 % Low 35.0 - 47.0 % [facility] Hemoglobin (Bld) [Mass/Vol] 8.6 g/dL Low 11.7 - 16.0 g/dL [facility] Interpretation and review of laboratory results Abnormal [facility] MCH (RBC) [Entitic mass] 26.4 pg 26.0 - 34.0 pg [facility] MCHC (RBC) [Mass/Vol] 32.7 % 30.5 - 36.0 % [facility] MCV (RBC) [Entitic vol] 80.7 fL 77.0 - 99.0 fL [facility] Platelet mean volume (Bld) [Entitic vol] 10.5 fL 9.0 - 12.7 fL [facility] Platelets (Bld) [#/Vol] 227 10*3/uL 140 - 440 10*3/uL [facility] RBC (Bld) [#/Vol] 3.26 10*6/uL Low 3.80 - 5.20 10*6/uL [facility] WBC (Bld) [#/Vol] 14.3 10*3/uL High 3.6 - 10.7 10*3/uL [facility] ECG 12-LEADon 01-23-2025 ECG 12-LEAD IMPRESSION: Sinus rhythm Ventricular premature complex Borderline left axis deviation Low voltage, precordial leads Borderline T abnormalities, diffuse leads Electronically Signed On 01-23-2025 02:30:53 EDT by Luis Armando Baugh Normal [facility] Laboratory - Chemistry and C hemistry - challengeon 01-23-2025 Procalcitonin [Mass/Vol] 2.93 ng/mL High NINF - 0.07 ng/mL [facility] Magnesium [Mass/Vol] 1.8 mg/dL 1.6 - 2 .6 mg/dL [facility] Laboratory - Drug toxicology on 01-23-2025 Vancomycin trough [Mass/Vol] 17.6 ug/mL [facility] MAGNESIUMon 01-23-2025 Magnesium [Mass/Vol] 1.8 mg/dL Normal 1.6-2.6 [facility] Comment on above: Result Comment: RAIMUNDO Salcedo COMMENTS: Higher values can be expected in females during menses. Performed By: #### L [id number], LAB15, [id number] ####Cuprous Chloride Helper: LACY OROSCO ([phone])[facility] ([address] MRSA DNA COLTEN+probe Ql (Nose) on 01-23-2025 Interpretation and review of laboratory results Normal [facility] mecA gene Not detected Not Detected [facility] Staphylococcus aureus Not detected Not Detected [facility] No Staphylococcus au reus detected. Negative nasal MRSA PCR has a high negative predictive value for MRSA pneumonia. Consider stopping Vancomycin if no other clinical indication. Contact Antimicrobial Stewardship for further recommendations. Staphylococcus aureus nasal screen by real-time PCR. This test was modified and its performance characteristics determined by [facility]. The U. S. Food and Drug Administration has not approved or cleared this test; however, FDA clearance or approval is not currently required for clinical use. The results are not intended to be used as the sole means for clinical diagnosis or patient management decisions. [facility] Magnesium [Mass/Vol]on 01-23 Interpretation and review of laboratory results Normal [employer] Higher values can be expected in females during menses. [facility] No Panel InformationOrdered By: Luis Armando Baugh on 01-23-2025 P Crawley -1 degrees [employer] Work Phone: [place] Interval 142 ms [facility] Phone: [phone] QRS Crawley -25 degrees [facility] Phone: [phone] QRSD Interval 88 ms [facility] Phone: [phone] QT Interval 0 ms [facility] Phone: [phone] QTC Interval 0 ms [facility] Phone: [phone] T Wave Crawley -49 degrees [facility] Phone: [facility] Phone: [phone] No Panel Informationon 01-23 Sinus rhythm Ventricular premature complex Borderline left axis deviation Low voltage, precordial leads Borderline T abnormalities, diffuse leads Electronically Signed On 01-23-2025 02:30:53 EDT by Luis Armando Baugh CV Luis Armando Narayanan MD - 01/23/2025 IMPRESSION: Sinus rhythm Ventricular premature complex Borderline left axis deviation Low voltage, precordial leads Borderline T abnormalities, diffuse leads Electronically Signed On 01-23-2025 02:30:53 EDT by Luis Armando Jimenez[employer] PROCALCITONIN TESTon 025 PROCALCITONIN 2.93 ng/mL High <0.07 [employer] [facility] Comment on above: Result Comment: RAIMUNDO R COMMENTS: PCT <0.50 = Low risk of severe sepsis and/or septic shock. PCT >2.00 = High risk of severe sepsis and/or septic shock. Performed By: #### L [id number], [id number], [id number] ####Cuprous Chloride Helper: LACY OROSCO ([phone])[facility] ([facility])[address] [place], [place] [id number] [facility] Procalcitonin [Mass/Vol]on 0 01-23-2025 Interpretation and review of laboratory results Abnormal [facility] PCT <0.50 = Low risk of severe sepsis and/or septic shock. PCT >2.00 = High risk of severe sepsis and/or septic shock. [facility] Progress Noteon 01-23-2025 Progress Note ------- Attestation signed by Lacy Moeller MD at 01/23/2025 1:22 PM Hospital Care (Independent): I independently saw and evaluated the patient. I agree with the findings and plan of care as documented in the resident's note. Patient appears well, sitting up in bed visiting with family. She reports that bleeding is very spotty now, had a little with wiping but that is it. She has no pain. We discussed that the lining of her uterus is thicker then we would expect given she is menopausal and sampling is needed. Would recommend hysteroscopy, D&C over EMB because D&C would also clear all the debris out as well as be a more thorough diagnostic procedure. She has a obgyn that she follows with but would really like to get it done while she is admitted to avoid the delay of diagnosis. Will try to add on tomorrow as long as she remains afebrile. Will touch base with urology as well to see if they want to do anything surgically at the same time. 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 female, admitted for heavy vaginal bleeding, now with simple sepsis 2/2 UTI Patient seen and examined. She is feeling well, she did have documented fevers overnight and she noted that at the time she did feel warm. She was diagnosed with simple sepsis from UTI probable source. She stated that she is doing just fine this AM. She is making urine into dowd catheter. She reports that her previous vaginal bleeding has almost completely stopped. She denies lightheadedness and dizziness. Vitals: Vitals: 01/22/25 1747 01/22/25 2154 01/23/25 0121 01/23/25 0519 BP: 125/69 140/83 129/76 142/84 BP Location: Left arm Right arm Right arm Right arm Patient Position: Sitting Lying Lying Lying Pulse: 107 105 99 102 Resp: 14 18 20 18 Temp: (!) 38.3 ?C (101 ?F) (!) 38.6 ?C (101.4 ?F) 37 ?C (98.6 ?F) 37.4 ?C (99.3 ?F) TempSrc: Oral Temporal Temporal Temporal SpO2: 96% 94% 93% 92% Weight: Height: Intake/Output: Current Shift: I/O this shift: In: 1741.7 [IV Piggyback:1741.7] Out: 525 [Urine:525] Physical Exam: Gen: NAD, alert and cooperative HEENT: Normocephalic, atraumatic, EOMI Resp: No increased WOB Abd: soft, ND, no rebound, no guarding. Some tenderness in suprapubic region. Ext: No LE edema, no calf tenderness or swelling Medications: Current Medications[1] Diagnostics: ECG 12 lead Result Date: 01/23/2025 Sinus rhythm Ventricular premature complex Borderline left axis deviation Low voltage, precordial leads Borderline T abnormalities, diffuse leads Electronically Signed On 01-23-2025 02:30:53 EDT by Luis Armando Baugh CT abdomen pelvis wo IV contrast Result Date: 01/22/2025 Patient Name: EREN MERCHANT : 1960 Exam Date/Time: 01/22/2025 15:44 Procedure: CT ABDOMEN PELVIS WO IV CONTRAST Ordering Provider: CHANG GINA Reason For Exam: previous imaging showing bladder wall thickening and hydronephrosis CT abdomen and pelvis without contrast History: Bladder wall thickening Technique: 3 mm axial images from the lung bases to just below the pubic symphysis without intravenous contrast Dose reduction was employed with automated exposure control. Comparison: 03/05/2024 Mild bilateral hydronephrosis. 4 mm stone in the lower right kidney. Generalized bladder wall thickening may be from bladder outlet obstruction. The liver, spleen, pancreas, and adrenals are normal. Small hiatal hernia. No bowel inflammation or obstruction. No free fluid. Mild bilateral hydronephrosis. A 4 mm stone in the lower right kidney. Generalized bladder wall thickening may be from bladder outlet obstruction. Report Dictated on Electronically Signed By: Ron Yoon MD Component Date Value Ref Range Status ABO Grouping 01/22/2025 O Final Antibody Screen 01/22/2025 NEG Final Rh Type 01/22/2025 POS Final Auto WBC 01/22/2025 17.0 (H) 3.6 - 10.7 10*3/uL Final RBC 01/22/2025 3.15 (L) 3.80 - 5.20 10*6/uL Final Hemoglobin 01/22/2025 8.5 (L) 11.7 - 16.0 g/dL Final Hematocrit 01/22/2025 26.3 (L) 35.0 - 47.0 % Final MCV 01/22/2025 83.5 77.0 - 99.0 fL Final MCH 01/22/2025 27.0 26.0 - 34.0 pg Final MCHC 01/22/2025 32.3 30.5 - 36.0 % Final RDW 01/22/2025 13.8 11.5 - 15.0 % Final Platelets 01/22/2025 221 140 - 440 10*3/uL Final MPV 01/22/2025 10.0 9.0 - 12.7 fL Final SODIUM 01/22/2025 135 (L) 136 - 145 mmol/L Final POTASSIUM 01/22/2025 3.6 3.5 - 5.1 mmol/L Final Plasma potassium values may be up to 0.5 mmol/L lower than serum values. CHLORIDE 01/22/2025 106 98 - 107 mmol/L Final CARBON DIOXIDE 01/22/2025 21 (L) 23 - 31 mmol/L Final UR (more content not included)... Normal [facility] VANCOMYCIN, AUC TIMED DOSING on 01-23-2025 VANCOMYCIN, AUC 17.6 ug/mL Normal [facility] Comment on above: Result Comment: RAIMUNDO Salcedo COMMENTS: Please draw random level at least >2 hours after the end of the last vancomycin infusion, or 30-minutes before next infusion. Toxicity is seen at concentrations >80-100 ug/mL Therapeutic (Peak) range: 20-40 Therapeutic (Trough) range: 5-10 Performed By: #### L [id number] ####Cuprous Chloride Helper: LACY OROSCO ([phone])[facility] ([facility])[address] [place] [address] Vancomycin trough [Mass/Vol] on 01-23-2025 Toxicity is seen at concentrations >80-100 ug/mL Therapeutic (Peak) range: 20-40 Therapeutic (Trough) range: 5-10 [facility] Vital signsOrdered By: Valerie Baugh on 01-23-2025 Heart rate 96 /min bpm [facility] Work Phone: BASIC METABOLIC PANELon Anion gap [Moles/Vol] 8 mmol/L Normal 3-13 [facility] Comment on above: Performed By: #### L [id number] ####Cuprous Chloride Helper: LACY OROSCO ([phone])[facility] ([facility])[address] [place] [address] Calcium [Mass/Vol] 8.4 mg/dL Low 8.8-10.0 [facility] Comment on above: Performed By: #### L [id number] ####Cuprous Chloride Helper: LACY OROSCO ([phone])[facility] ([facility])[address] [place] [address] Chloride [Moles/Vol] 106 mmol/L Normal 98-107 [facility] Comment on above: Performed By: #### L [id number] ####Cuprous Chloride Helper: LACY OROSCO ([phone])[facility] ([facility])[address] [place] [address] CO2 [Moles/Vol] 21 mmol/L Low 23-31 [facility] Comment on above: Performed By: #### L [id number] ####Cuprous Chloride Helper: LACY OROSCO ([phone])[facility])[address] [place] [address] Creatinine [Mass/Vol] 1.83 mg/dL High 0.57-1.11 [facility] Comment on above: Performed By: #### L [id number] ####Cuprous Chloride Helper: LACY OROSCO ([phone])[facility])[address] [place] [address] GLOMERULAR FILTRATION RATE ML/MIN/1.73 SQ M.PREDICTED 30.1 mL/min/1.73m*2 Low >60.0 [facility] Comment on above: Result Comment: Calc ulation based on the Chronic Kidney Disease Epidemiology Collaboration (CKD-EPI) equation refit without adjustment for race Performed By: #### L [id number] ####Cuprous Chloride Helper: LACY OROSCO ([phone])[facility] ([facility])[address] [place] [address] Glucose [Mass/Vol] 119 mg/dL High 82-115 [facility] Comment on above: Performed By: #### L [id number] ####Cuprous Chloride Helper: LACY OROSCO ([phone])[facility])[address] [place] [address] Potassium [Moles/Vol] 3.6 mmol/L Normal 3.5-5.1 [facility] Comment on above: Result Comment: [facility] potassium values may be up to 0.5 mmol/L lower than serum values. Performed By: #### L [id number] ####Cuprous Chloride Helper: LACY OROSCO ([phone])[facility] ([facility])[address] [place] [address] Sodium [Moles/Vol] 135 mmol/L Low 136-145 [facility] Comment on above: Performed By: #### L [id number] ####Cuprous Chloride Helper: LACY OROSCO ([phone])[facility])[address] [place] [address] Urea nitrogen [Mass/Vol] 28 mg/dL High 02-06 [facility] Comment on above: Performed By: #### L [id number] ####Cuprous Chloride Helper: LACY OROSCO ([phone])[facility] ([facility])[address] [place] [address] BLOOD CULTUREon 01-22-2025 Bacteria identified Cx Nom (Bld) BLOOD CULTURE Reference No growth at 5 days ORDER COMMENTS: Blood Collection Site: Right Antecubital [ S = SUSCEPTIBLE R = RESISTANT I = INTERMEDIATE S-DD = Susceptible-dose dependent NS = Non-susceptible NO = No Interpretation ] Normal [facility] Comment on above: Performed By: #### L [id number] #### Cuprous Chloride Helper: LACY OROSCO ([phone]) [facility]) [address] [place] [address] Bacteria identified Cx Nom (Bld) BLOOD CULTURE Reference No growth at 5 days ORDER COMMENTS: Blood Collection Site: Left Antecubital [ S = SUSCEPTIBLE R = RESISTANT I = INTERMEDIATE S-DD = Susceptible-dose dependent NS = Non-susceptible NO = No Interpretation ] Normal [facility] Comment on above: Performed By: #### L [id number] ####Cuprous Chloride Helper: LACY OROSCO ([phone])[facility])[address] [place] [address] BLOOD TYPE AND SCREEN GELon 01-22-2025 ABO GROUPING O Normal [facility] Comment on above: Performed By: #### L [id number] ####Cuprous Chloride Helper: LACY OROSCO ([phone])[facility] ([facility])[address] [place] [address] RH TYPE IN BLOOD Positive Normal [facility] Comment on above: Performed By: #### L [id number] ####Cuprous Chloride Helper: LACY OROSCO ([phone])[facility] ([facility])[address] [place] [address] Basic metabolic 1998 panelon 01-22-2025 Anion gap [Moles/Vol] 8 mmol/L 3 - 13 mmol/L [facility] Calcium [Mass/Vol] 8.4 mg/dL Low 8.8 - 10. 0 mg/dL [facility] Chloride [Moles/Vol] 106 mmol/L 98 - 10 7 mmol/L [facility] CO2 [Moles/Vol] 21 mmol/L Low 23 - 31 mmol/L [facility] Creatinine [Mass/Vol] 1.83 mg/dL High 0.57 - 1.11 mg/dL [facility] GFR/1.73 sq M.predicted (S/P/Bld) [Vol rate/Area] 30.1 mL/min Low - PINF [facility] Comment on above: Calculation based on the Chronic Kidney Disease Epidemiology Collaboration (CKD-EPI) equation refit without adjustment for race Glucose [Mass/Vol] 119 mg/dL High 82 - 115 mg/dL [facility] Interpretation and review of laboratory results Abnormal [facility] Potassium [Moles/Vol] 3.6 mmol/L 3.5 - 5.1 mmol/L [facility] Comment on above: Plasma potassium ines ues may be up to 0.5 mmol/L lower than serum values. Sodium [Moles/Vol] 135 mmol/L Low 136 - 145 mmol/L [facility] Urea nitrogen [Mass/Vol] 28 mg/dL High 9 - 23 mg/dL [facility] Blood type and Crossmatch pa candido (Bld)on 01-22-2025 ABO group Nom (Bld) O [facility] Blood group antibody screen GEL Ql Negative [facility] D Ag Ql (RBC) Positive [facility] CBC (HEMOGRAM)on 01-22-2025 Erythrocyte distribution width (RBC) [Ratio] 14.0 % Normal 11.5-15.0 [facility] Comment on above: Performed By: #### L [id number] ####Cuprous Chloride Helper: LACY OROSCO ([phone])[address] Hematocrit (Bld) [Volume fraction] 26.5 % Low 35.0-47.0 [facility] Comment on above: Performed By: #### L [id number] ####Cuprous Chloride Helper: LACY OROSCO ([phone])[facility] ([facility])[address] [place] [address] Hemoglobin (Bld) [Mass/Vol] 8.9 g/dL Low 11.7-16.0 [facility] Comment on above: Performed By: #### L [id number] ####Cuprous Chloride Helper: LACY OROSCO ([phone])[facility] ([facility])[address] [place] [address] MCH (RBC) [Entitic mass] 27.2 pg Normal 26.0-34.0 [facility] Comment on above: Performed By: #### L [id number] ####Cuprous Chloride Helper: LACY OROSCO ([phone])[facility])[address] [place] [address] MCHC 33.6 % Normal 30.5-36.0 [facility] Comment on above: Performed By: #### L [id number] ####Cuprous Chloride Helper: LACY OROSCO ([phone])[facility] ([facility])[address] [place] [address] MCV (RBC) [Entitic vol] 81.0 fL Normal 77.0-99.0 [facility] Comment on above: Performed By: #### L [id number] ####Cuprous Chloride Helper: LACY OROSCO ([phone])[facility] ([facility])[address] [place] [address] Platelet mean volume (Bld) [Entitic vol] 10.3 fL Normal 9.0-12.7 [facility] Comment on above: Performed By: #### L [id number] ####Cuprous Chloride Helper: LACY OROSCO ([phone])[facility] ([facility])[address] [place] [address] Platelets (Bld) [#/Vol] 221 10*3/uL Normal 140-440 [facility] Comment on above: Performed By: #### L [id number] ####Cuprous Chloride Helper: LACY OROSCO ([phone])[facility] ([facility])[address] [place] [address] RBC (Bld) [#/Vol] 3.27 10*6/uL Low 3.80-5.20 [facility] Comment on above: Performed By: #### L [id number] ####Cuprous Chloride Helper: LACY OROSCO ([phone])[facility] ([facility])[address] [place] [address] WBC (Bld) [#/Vol] 15.4 10*3/uL High 3.6-10.7 [facility] Comment on above: Performed By: #### L [id number] ####Cuprous Chloride Helper: LACY OROSCO ([phone])[facility] ([facility])[address] [place] [address] CBC W Auto Differential pane l (Bld)Ordered By: Jordan Middleton on 01-22-2025 Erythrocyte distribution width (RBC) [Ratio] 13.8 % 11.5 - 15.0 % [facility] Hematocrit (Bld) [Volume fraction] 26.3 % Low 35.0 - 47.0 % [facility] Hemoglobin (Bld) [Mass/Vol] 8.5 g/dL Low 11.7 - 16.0 g/dL [facility] Interpretation and review of laboratory results Abnormal [facility] MCH (RBC) [Entitic mass] 27 pg 26.0 - 34.0 pg [facility] MCHC (RBC) [Mass/Vol] 32.3 % 30.5 - 36.0 % [facility] MCV (RBC) [Entitic vol] 83.5 fL 77.0 - 99.0 fL [facility] Platelet mean volume (Bld) [Entitic vol] 10 fL 9.0 - 12.7 fL [facility] Platelets (Bld) [#/Vol] 221 10*3/uL 140 - 440 10*3/uL [facility] RBC (Bld) [#/Vol] 3.15 10*6/uL Low 3.80 - 5.20 10*6/uL [facility] WBC (Bld) [#/Vol] 17 10*3/uL High 3.6 - 10.7 10*3/uL [facility] CBC WITH AUTO DIFFERENTIALon 01-22-2025 Erythrocyte distribution width (RBC) [Ratio] 13.8 % Normal 11.5-15.0 [facility] Comment on above: Performed By: #### L [id number], [id number] ####Cuprous Chloride Helper: LACY OROSCO ([phone])[address] Hematocrit (Bld) [Volume fraction] 26.3 % Low 35.0-47.0 [facility] Comment on above: Performed By: #### L [id number], [id number] ####Cuprous Chloride Helper: LACY OROSCO ([phone])[facility])[address] [place] [address] Hemoglobin (Bld) [Mass/Vol] 8.5 g/dL Low 11.7-16.0 [facility] Comment on above: Performed By: #### L [id number], [id number] ####Cuprous Chloride Helper: LACY OROSCO ([phone])[address] MCH (RBC) [Entitic mass] 27.0 pg Normal 26.0-34.0 [facility] Comment on above: Performed By: #### L [id number], [id number] ####Cuprous Chloride Helper: LACY OROSCO ([phone])[address] MCHC 32.3 % Normal 30.5-36.0 [facility] Comment on above: Performed By: #### L [id number], [id number] ####Cuprous Chloride Helper: LACY OROSCO ([phone])[facility])[address] [place] [address] MCV (RBC) [Entitic vol] 83.5 fL Normal 77.0-99.0 [facility] Comment on above: Performed By: #### L [id number], [id number] ####Cuprous Chloride Helper: LACY OROSCO ([phone])[address] Platelet mean volume (Bld) [Entitic vol] 10.0 fL Normal 9.0-12.7 [facility] Comment on above: Performed By: #### L [id number], [id number] ####Cuprous Chloride Helper: LACY OROSCO ([phone])[facility])[address] [place] [address] Platelets (Bld) [#/Vol] 221 10*3/uL Normal 140-440 [facility] Comment on above: Performed By: #### L [id number], [id number] ####Cuprous Chloride Helper: LACY OROCSO ([phone])[facility] ([facility])[address] [place] [address] RBC (Bld) [#/Vol] 3.15 10*6/uL Low 3.80-5.20 [facility] Comment on above: Performed By: #### L [id number], [id number] ####Cuprous Chloride Helper: LACY OROSCO ([phone])[facility] ([facility])[address] [place] [address] WBC (Bld) [#/Vol] 17.0 10*3/uL High 3.6-10.7 [facility] Comment on above: Performed By: #### L [id number], [id number] ####Cuprous Chloride Helper: LACY OROSCO ([phone])[facility])[address] [place] [address] CBC panel Auto (Bld)on 01-22 Erythrocyte distribution width (RBC) [Ratio] 14 % 11.5 - 15.0 % [facility] Hematocrit (Bld) [Volume fraction] 26.5 % Low 35.0 - 47.0 % [facility] Hemoglobin (Bld) [Mass/Vol] 8.9 g/dL Low 11.7 - 16.0 g/dL [facility] Interpretation and review of laboratory results Abnormal [facility] MCH (RBC) [Entitic mass] 27.2 pg 26.0 - 34.0 pg [facility] MCHC (RBC) [Mass/Vol] 33.6 % 30.5 - 36.0 % [facility] MCV (RBC) [Entitic vol] 81 fL 77.0 - 99.0 fL [facility] Platelet mean volume (Bld) [Entitic vol] 10.3 fL 9.0 - 12.7 fL [facility] Platelets (Bld) [#/Vol] 221 10*3/uL 140 - 440 10*3/uL [facility] RBC (Bld) [#/Vol] 3.27 10*6/uL Low 3.80 - 5.20 10*6/uL [facility] WBC (Bld) [#/Vol] 15.4 10*3/uL High 3.6 - 10.7 10*3/uL [facility] COMPLETE URINALYSIS WITH REF ASHVIN TO CULTUREon 01-22-2025 BACTERIA (#/HPF) IN URINE Few Abnormal Negative [facility] Comment on above: Performed By: #### L [id number], [id number] ####Cuprous Chloride Helper: LACY OROSCO ([phone])[facility] ([facility])[address] [place] [address] BILIRUBIN, TOTAL PRESENCE IN URINE Negative Normal Negative [facility] Comment on above: Performed By: #### L [id number], [id number] ####Cuprous Chloride Helper: LACY OROSCO ([phone])[facility] ([facility])[address] [place] [address] Clarity (U) Extra Turbid Abnormal Clear [facility] Comment on above: Performed By: #### L [id number], [id number] ####Cuprous Chloride Helper: LACY OROSCO ([phone])[facility] ([facility])[address] [place] [address] Color (U) Yellow Normal Lt. Yellow [facility] Comment on above: Performed By: #### L [id number], [id number] ####Cuprous Chloride Helper: LACY OROSCO ([phone])[facility] ([facility])[address] [place] [address] [place] GLUCOSE (MG/DL) IN URINE Normal Normal Normal (<70) [facility] Comment on above: Performed By: #### L [id number], [id number] ####Cuprous Chloride Helper: LACY OROSCO ([phone])[facility])[address] [place] [address] HEMOGLOBIN PRESENCE IN URINE 1.0 mg/dL Abnormal Negative [facility] Comment on above: Performed By: #### L [id number], [id number] ####Cuprous Chloride Helper: LACY OROSCO ([phone])[facility])[address] [place] [address] Ketones Ql (U) Negative Normal Negative [facility] Comment on above: Performed By: #### L [id number], [id number] ####Cuprous Chloride Helper: LACY OROSCO ([phone])[facility] ([facility])[address] [place] [address] LEUKOCYTE ESTERASE PRESENCE IN URINE BY TEST STRIP 500 Loren/uL Abnormal Negative [facility] Comment on above: Performed By: #### L [id number], [id number] ####Cuprous Chloride Helper: LACY OROSCO ([phone])[facility] ([facility])[address] [place] [address] NITRITE PRESENCE IN URINE Negative Normal Negative [facility] Comment on above: Performed By: #### L [id number], [id number] ####Cuprous Chloride Helper: LACY OROSCO ([phone])[facility] ([facility])[address] [place] [address] pH (U) 7.5 [pH] Normal 5.0-8.0 [facility] Comment on above: Performed By: #### L [id number], [id number] ####Cuprous Chloride Helper: LACY OROSCO ([phone])[facility])[address] [place] [address] Protein (U) [Mass/Vol] 50 mg/dL Abnormal Negative [facility] Comment on above: Performed By: #### L [id number], [id number] ####Cuprous Chloride Helper: LACY OROSCO ([phone])[facility])[address] [place] [address] [place] RBC (#/HPF) IN URINE SEDIMENT 51-100 Abnormal 0-2 [facility] Comment on above: Performed By: #### L [id number], [id number] ####Cuprous Chloride Helper: LACY [phone])[facility] ([facility])[address] [place] [address] Specific gravity (U) [Rel density] 1.011 Normal 1.005-1.03 0 [facility] Comment on above: Result Comment: RAIMUNDO Salcedo COMMENTS: This specimen has been reflexed to urine culture. Performed By: #### L [id number], [id number] ####Cuprous Chloride Helper: LACY OROSCO ([phone])[facility] ([facility])[address] [place] [address] SQUAMOUS EPITHELIAL CELLS (#/HPF) IN URINE SEDIMENT Negative Normal 3-5 [facility] Comment on above: Performed By: #### L [id number], [id number] ####Cuprous Chloride Helper: LACY OROSCO ([phone])[facility])[address] [place] [address] UROBILINOGEN (MG/DL) IN URINE Normal Normal Normal (0-1) [facility] Comment on above: Performed By: #### L [id number], [id number] ####Cuprous Chloride Helper: LACY OROSCO ([phone])[facility] ([facility])[address] [place] [address] WBC (LEUKOCYTE) (#/HPF) IN URINE SEDIMENT >100 Abnormal 0-5 [facility] Comment on above: Performed By: #### L [id number], [id number] ####Cuprous Chloride Helper: LACY OROSCO ([phone])[facility])[address] [place] [address] WBC (LEUKOCYTE) CLUMPS (#/HPF) IN URINE SEDIMENT Many Abnormal Negative [facility] Comment on above: Performed By: #### L [id number], [id number] ####Cuprous Chloride Helper: LACY OROSCO ([phone])[facility])[address] [place] [address] CT ABDOMEN PELVIS WO IV CONT RASTon 01-22-2025 CT ABDOMEN PELVIS WO IV CONTRAST Patient Name: EREN MERCHANT : 1960 Exam Date/Time: 01/22/2025 15:44 Procedure: CT ABDOMEN PELVIS WO IV CONTRAST Ordering Provider: CHANG GINA Reason For Exam: previous imaging showing bladder wall thickening and hydronephrosis CT abdomen and pelvis without contrast History: Bladder wall thickening Technique: 3 mm axial images from the lung bases to just below the pubic symphysis without intravenous contrast Dose reduction was employed with automated exposure control. Comparison: 03/05/2024 Mild bilateral hydronephrosis. 4 mm stone in the lower right kidney. Generalized bladder wall thickening may be from bladder outlet obstruction. The liver, spleen, pancreas, and adrenals are normal. Small hiatal hernia. No bowel inflammation or obstruction. No free fluid. IMPRESSION: Mild bilateral hydronephrosis. A 4 mm stone in the lower right kidney. Generalized bladder wall thickening may be from bladder outlet obstruction. Report Dictated on Electronically Signed By: Ron Yoon MD Electronically Signed Date/Time: 01/22/2025 5:25 PM EDT [facility] CT Abdomen and Pelvis WO con traston 01-22-2025 Mild bilateral hydronephrosis. A 4 mm stone in the lower right kidney. Generalized bladder wall thickening may be from bladder outlet obstruction. Report Dictated on Electronically Signed By: Ron Yoon MD Electronically Signed Date/Time: 01/22/2025 5:25 PM EDT [facility] Patient Name: EREN BUSTILLO : 1960 [facility]#: [id number] Exam Date/Time: 01/22/2025 15:44 Procedure: CT ABDOMEN PELVIS WO IV CONTRAST Ordering Provider: CHANG GINA Reason For Exam: previous imaging showing bladder wall thickening and hydronephrosis CT abdomen and pelvis without contrast History: Bladder wall thickening Technique: 3 mm axial images from the lung bases to just below the pubic symphysis without intravenous contrast Dose reduction was employed with automated exposure control. Comparison: 03/05/2024 Mild bilateral hydronephrosis. 4 mm stone in the lower right kidney. Generalized bladder wall thickening may be from bladder outlet obstruction. The liver, spleen, pancreas, and adrenals are normal. Small hiatal hernia. No bowel inflammation or obstruction. No free fluid. [facility] Ron Yoon MD - 01/22/2025 Patient Name: EREN MERCHANT : 1960 Exam Date/Time: 01/22/2025 15:44 Procedure: CT ABDOMEN PELVIS WO IV CONTRAST Ordering Provider: CHANG GINA Reason For Exam: previous imaging showing bladder wall thickening and hydronephrosis CT abdomen and pelvis without contrast History: Bladder wall thickening Technique: 3 mm axial images from the lung bases to just below the pubic symphysis without intravenous contrast Dose reduction was employed with automated exposure control. Comparison: 03/05/2024 Mild bilateral hydronephrosis. 4 mm stone in the lower right kidney. Generalized bladder wall thickening may be from bladder outlet obstruction. The liver, spleen, pancreas, and adrenals are normal. Small hiatal hernia. No bowel inflammation or obstruction. No free fluid. IMPRESSION: Mild bilateral hydronephrosis. A 4 mm stone in the lower right kidney. Generalized bladder wall thickening may be from bladder outlet obstruction. Report Dictated on Electronically Signed By: Ron Yoon MD Electronically Signed Date/Time: 01/22/2025 5:25 PM EDT [facility] Radiology Study observation (narrative) [facility] CT Abdomen and Pelvis WO con trastOrdered By: Ron Yoon on 01-22-2025 [employer] [employer] Work Phone: Consulton 01-22-2025 Consult [facility] Medicine [facility] nsult Patient - Eren Merchant, Age - 64 y.o. - 1960 Room Number - [id number] Consulting - Jennie Chang DO Primary Care Physician - Priyanka Smith Date of Admission - 01/22/2025 3:42 AM Hospital Day - 0 Reason for Consult: Medical Management HISTORY OF PRESENT ILLNESS: Eren is a 64 y.o. female with a past medical history of parkinson's, thyroid cancer s/p surgical intervention, and overactive bladder with recurrent UTI. Patient developed heavy vaginal bleeding Saturday 01/20, she initially presented to [facility], was then transferred to [facility] for OB-Chief Gauger consult. Hgb baseline ~12, down to 8. She received 1.5 units of PRBC, second unit stopped for fever. CT A/P showed thickened bladder wall and bilateral hydronephrosis. Bleeding stopped on own this morning, before Megace was given. Chief Gauger planning for hysteroscopy D&C inpatient per patient request. Patient developed fever and dysuria, urology following already. UA positive for UTI, placed on Zosyn prior. Patient denies any flank pain, frequency, foul smelling urine, or pain with urination. Hospital medicine was consulted for further management of UTI. Past Medical History: Medical History[1] Past Surgical History: Surgical History[2] Medications: Scheduled Meds[3] Continuous Meds[4] PRN Meds[5] Allergies: Azithromycin and Seasonal Social History: Social History Socioeconomic History Marital [...] Social History Narrative Not on file Social Drivers of Health Financial Resource Strain: Low Risk (12/11/2024) Received from [facility] Overall Financial Resource Strain (CARDIA) Difficulty of Paying Living Expenses: Not hard at all Food Insecurity: No Food Insecurity (01/22/2025) Hunger Vital Sign Worried About Running Out of Food in the Last Year: Never true Ran Out of Food in the Last Year: Never true Transportation Needs: No Transportation Needs (01/22/2025) PRAPARE - Transportation Lack of Transportation (Medical): No Lack of Transportation (Non-Medical): No Physical Activity: Insufficiently Active (12/11/2024) Received from [facility] Exercise Vital Sign Days of Exercise per Week: 3 days Minutes of Exercise per Session: 30 min Stress: No Stress Concern Present (12/11/2024) Received from [facility] [employer] [place] [employer] - Occupational Stress Questionnaire Feeling of Stress : Not at all Social Connections: Moderately Isolated (12/11/2024) Received from [facility] Social Connection and Isolation Panel [NHANES] Frequency of Communication with Friends and Family: More than three times a week Frequency of Social Gatherings with Friends and Family: Once a week Attends Anglican Services: 1 to 4 times per year Active Member of Clubs or Organizations: No Attends Club or Organization Meetings: Never Marital Status: Intimate Partner Violence: Not At Risk (01/22/2025) Humiliation, Afraid, Rape, and Kick questionnaire Fear of Current or Ex-Partner: No Emotionally Abused: No Physically Abused: No Sexually Abused: No Housing Stability: Low Risk (01/22/2025) Housing Stability Vital Sign Unable to Pay for Housing in the Last Year: No Number of Times Moved in the Last Year: 1 Homeless in the Last Year: No Family History: Family History[6] REVIEW OF SYSTEMS: 10 point ROS obtained, as per HPI, otherwise NEG Physical Exam: Vitals: BP 140/83 (BP Location: Right arm, Patient Position: Lying) Pulse 105 Temp (!) 38.6 ?C (101.4 ?F) (Temporal) Resp 18 Ht 1.664 m (5' 5.5) Wt 76.7 kg (169 lb) LMP (LMP Unknown) SpO2 94% BMI 27.70 kg/m? BMI Classification: Overweight (BMI 25.0-29.9) Pulse Ox: SpO2 Av.5 % Min: 92 % Max: 99 % Supplemental O2: General appearance: No apparent distress, appears stated age and cooperative with exam. HEENT: Normal cephalic, atraumatic without obvious deformity. Pupils equal, round, and reactive to light. Extra ocular muscles intact. Conjunctivae/corneas clear. Neck: Supple, with full range of motion. No jugular venous distention. Trachea midline. No lymphadenopathy. Respiratory: Normal respiratory effort. Clear to auscultation, bilaterally without Rales/Wheezes/Rhonchi. Cardiovascular: Regular rate and rhythm with normal S1/S2 without murmurs, rubs or gallops. Abdomen: Soft, non-tender, non-distended with normal bowel sounds. No rebound or guarding. Musculoskeletal: No clubbing, cyanosis or edema bilaterally. Full range of m (more content not included)... Normal [facility] Consult ------- Attestation signed by Ricki Ceballos MD at 01/23/2025 12:44 PM I saw and evaluated the patient, participating in the alberts portions of the service. I reviewed the resident?s note. I agree with the resident?s findings and plan. Thickened bladder, MANJIT on CKD and bilateral hydronephrosis, suggestive of neurogenic bladder, high pressure. She can go home with catheter, repeat renal US and void trial outpatient. She may benefit from UDS and anticholinergic vs botox Ricki Ceballos MD Urology Consult 01/22/2025 HISTORY OF PRESENT ILLNESS: The patient is a 64 y.o. female, known to our service, with past medical history as listed below and significant for CKD, kidney stones, gross hematuria, and OAB s/p interstim and botox trial. She is here for vaginal bleeding. Workup included noting abnormal bladder and ureteral imaging detailed below. According to the patient she had vaginal bleeding that began Wednesday and has since subsided. The patient reports she has followed with urogynecology for LUTS with placement of neurostim and bladder botox, both without resolution of symptoms. She also has a history of kidney stones in the past 1-2 years. She currently reports suprapubic pain that she states has been constant for years but has not gotten acutely worse. She denies nausea/vomiting, current fevers/chills, and shortness of breath. On evaluation, she is AF and HDS. Labs and imaging are outlined below. Urology consulted for evaluation and management. ED/Hospital workup Cr 1.83 (BL ~1.5) ; WBC 17; HGB 8.5; no blood thinners; CT ([facility]) - thickened bladder wall with heterogenous echogenic debris PAST MEDICAL HISTORY: Medical History[1] PAST SURGICAL HISTORY: Surgical History[2] ALLERGIES: Allergies[3] HOME MEDICATIONS: Prescriptions Prior to Admission[4] FAMILY HISTORY: Family History[5] Social History: Tobacco Use History[6] Social History Substance and Sexual Activity Alcohol Use Never ROS: Constitutional: see HPI for chills and fevers HEENT: no blurry vision or eye redness Respiratory: negative for hemoptysis and shortness of breath Cardiovascular: negative for dyspnea and syncope Gastrointestinal: negative for jaundice, see HPI regarding nausea and vomiting Genitourinary: see HPI Hematologic/lymphatic: negative for bleeding Integumentary: no new bruises or lesions Musculoskeletal:negative for muscle weakness Neurological: negative for coordination problems and seizures All other systems negative PHYSICAL EXAM: VITALS: Vitals: 01/22/25 0352 01/22/25 0622 01/22/25 0804 BP: 103/57 93/57 128/68 Pulse: 102 99 90 Resp: 18 18 18 Temp: 37.7 ?C (99.9 ?F) TempSrc: Oral SpO2: 94% 99% 98% Weight: 169 lb (76.7 kg) Height: 5' 5.5 (1.664 m) General: Alert, in no acute distress Head: Normocephalic, atraumatic Respiratory: no respiratory distress, normal effort, no audible wheezes Cardiovascular: regular pulse and no cyanosis Abdomen: soft, non distended, non tender : No R. flank TTP, No L. flank TTP, and + suprapubic TTP DATA: LABS: BMP: Lab Results Component Value Date NA 135 (L) 01/22/2025 K 3.6 01/22/2025 CL 106 01/22/2025 CO2 21 (L) 01/22/2025 BUN 28 (H) 01/22/2025 CREATININE 1.83 (H) 01/22/2025 CALCIUM 8.4 (L) 01/22/2025 GLUCOSE 119 (H) 01/22/2025 CBC: Lab Results Component Value Date WBC 17.0 (H) 01/22/2025 HGB 8.5 (L) 01/22/2025 HCT 26.3 (L) 01/22/2025 MCV 83.5 01/22/2025 PLT 221 01/22/2025 RADIOLOGY: No orders to display IMPRESSION: 64 y.o. female with notable hx of CKD, kidney stones, gross hematuria, and OAB s/p interstim and botox trial. Presents with vaginal bleeding and consulted for outside imaging report of possible bladder wall thickening, heterogenous echogenic debris, and bilateral hydronephrosis WBC 17 Hgb 8.5 Cr 1.83 (bl ~1.5) PLAN: - Outside images read suggest bladder wall thickening and bilateral hydronephrosis - Will obtain CT abd/pel since unable to see outside images Pyelograms - Pending CT results, can consider possible cystoscopy and retrograde pyelogram - OB following, appreciate recs - Possible hysteroscopy D&C. If desired, can attempt coordination of hysteroscopy and cystoscopy while inpatient - Due to reported hydro, will get PVR. If retaining significant volume, recommend dowd catheter - Remainder of care per primary - Please reach out to urology with any questions or concerns Thank you for allowing me to participate in the care of your patient Marlon Viramontes MD PGY-1 Urology 01/22/25 8:57 AM [1] Past Medical History: Diagnosis Date Arthritis Cancer (CMS/HCC) (HCC) Disease of thyroid gland [2] Past Surgical History: Procedure Laterality Date BACK SURGERY CHOLECYSTECTOMY (more content not included)... Normal [facility] Consult ------- Attestation signed by Jennie Chang DO at 01/22/2025 6:50 AM See H&P for attestation. AUTOMOTIVE SERVICE PROFESSIONAL Consult Please page the [facility] OBGYN Call RES group via Secure Chat for any questions or concerns. Patient Name: Eren Merchant Patient : 1960 Room/Bed: / Admission Date/Time: 01/22/2025 3:42 AM Primary Care Physician: Priyanka Smith HPI: Eren Merchant is a 64 y.o. female presenting as transfer from [facility] for heavy vaginal bleeding. She is postmenopausal and her last LMP was 12 years ago. She states her bleeding started Wednesday morning and has gone through 3-4 packs of maxi pads since. She received 1 unit of blood and had to stop the second unit 2/2 spiking a fever. She states her bleeding has slowed down and only has noticed blood in the bedside commode with wiping. She denies being on blood thinners. Denies abdominal pain and pelvic pain Medical Hx: Parkinson's, hx thymic cancer treated with surgery, overactive bladder Surgical Hx: Back surgery, cholecystectomy, thymectomy, cystoscopy REVIEW OF SYSTEMS: A minimum of an eleven point review of systems was completed. Review of Systems Constitutional: Negative for chills and fever. Respiratory: Negative for shortness of breath. Cardiovascular: Negative for chest pain. Gastrointestinal: Negative for abdominal pain, constipation, diarrhea, nausea and vomiting. Genitourinary: Positive for vaginal bleeding. Negative for dysuria, pelvic pain, vaginal discharge and vaginal pain. Social History: TOBACCO: reports that she has never smoked. She has never used smokeless tobacco. ETOH: reports no history of alcohol use. GYNECOLOGICAL HISTORY: Menstrual History: postmenopausal. Pap History: Hx of abnormal paps in the past with colposcopy, denies LEEP/CKC PAST MEDICAL HISTORY: Past Medical History Diagnosis Date Arthritis Cancer (CMS/HCC) (HCC) Disease of thyroid gland PAST SURGICAL HISTORY: Past Surgical History Procedure Laterality Date BACK SURGERY CHOLECYSTECTOMY COLON SURGERY THYMECTOMY stated per patient, for cancer removal ALLERGIES: Allergen Reactions Azithromycin Diarrhea Severe diarrhea Seasonal Other Stuffy/runny nose MEDICATIONS: Current Outpatient Medications: amitriptyline (Elavil) 75 MG tablet, Take 75 mg by mouth Nightly. AVS from 03/03 from [facility] with [address]. Benitez states: discontinue the elavil for now - we will taper it down. Take 50 mg 4-5 days, then take 25 mg for 4-5 days then stop. (Patient not taking: Reported on 04/07/2024), Disp: , Rfl: Apoaequorin (Prevagen) 10 MG capsule, Take 10 mg by mouth daily. (Patient not taking: Reported on 04/07/2024), Disp: , Rfl: aspirin 81 MG EC tablet, Take 81 mg by mouth in the morning., Disp: , Rfl: biotin 5000 MCG capsule, Take 5,000 mcg by mouth daily. OTC per patient, Disp: , Rfl: Calcium Carb-Cholecalciferol 600-10 MG-MCG tablet, Take 1 tablet by mouth in the morning and 1 tablet in the evening., Disp: , Rfl: fluconazole (Diflucan) 200 MG tablet, Take 200 mg by mouth daily., Disp: , Rfl: fludrocortisone (Florinef) 0.1 MG tablet, Take 1 tablet (0.1 mg) by mouth 2 times daily., Disp: 60 tablet, Rfl: 0 levothyroxine (Synthroid, Levoxyl) 75 MCG tablet, Take 75 mcg by mouth every morning (before breakfast)., Disp: , Rfl: mycophenolate (Cellcept) 500 MG tablet, Take 1,000 mg by mouth 2 times daily. 1000 mg in morning and 500 at night per patient, Disp: , Rfl: ondansetron (Zofran) 4 MG tablet, Take 4 mg by mouth every 8 hours as needed for nausea or vomiting. New prescription, unsure of times or dose (Patient not taking: Reported on 04/07/2024), Disp: , Rfl: FAMILY HISTORY: Family History of Breast, Ovarian, Colon or Uterine Cancer: No family history is not on file. SOCIAL HISTORY: Social Connections: Moderately Isolated (12/11/2024) Received from [facility] Social Connection and Isolation Panel [NHANES] Frequency of Communication with Friends and Family: More than three times a week Frequency of Social Gatherings with Friends and Family: Once a week Attends Anglican Services: 1 to 4 times per year Active Member of Clubs or Organizations: No Attends Club or Organization Meetings: Never Marital Status: Medications: Current Inpatient [Current Medications] [Current Medications] No current facility-administered medications for this encounter. Current Outpatient Medications Medication Sig Dispense Refill amitriptyline (Elavil) 75 MG tablet Take 75 mg by mouth Nightly. AVS from 03/03 from [facility] with [address] Benitez states: discontinue the elavil for now - we will taper it down. Take 50 (more content not included)... Normal [facility] ED Provider Noteon ED Provider Note EMERGENCY DEPARTMENT ENCOUNTER Pt Name: Eren Merchant Birthdate 1960 Date of evaluation: 01/21/2025 ED Provider: Soco Avila MD CHIEF COMPLAINT 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 Patient presents with Vaginal Bleeding Transfer from [facility] for a REFERENCE TEST CLERK/ONC consult. Started to bleed heavily Wednesday morning going thru approx 70 maxi pads. +clots. Received 1 unit of PRBCs @ [facility] but didn't receive full second unit d/t increased temperature. Per EMS she became hypotensive for 90s/50s and was given a 500cc bolus. Pt has no other complaints, just the bleeding. HISTORY OF PRESENT ILLNESS (Location/Symptom, Timing/Onset, Context/Setting, Quality, Duration, Modifying Factors, Severity) Note limiting factors. I wore appropriate PPE for the entirety of this encounter. HPI Eren Merchant is a 64 y.o. who presents to the emergency department for vaginal bleeding. Patient was transferred from [facility] for AUTOMOTIVE SERVICE PROFESSIONAL consult. Started having heavy bleeding since Wednesday morning has gone through 3 or 4 packs of maxi pads. Patient received 1 unit of packed red blood cell booster but when they started the second units when patient had increased temperature and they had to stop the transfusion. And initially patient was tachycardic and hypotensive on arrival to the ED. On route patient was hypotensive and was given 5 to cc bolus. Patient was given Tylenol for her elevated temperature. Denying any pain anywhere. States that this is never occurred before. Denies feel lightheaded or dizzy. Patient reports that the bleeding seems to slow down a bit but she still having vaginal bleeding. Nursing Notes were reviewed. Limitations to history: None Outside historians: None REVIEW OF SYSTEMS Review of Systems Pertinent positives and negatives as per HPI. PAST MEDICAL HISTORY Medical History[1] SURGICAL HISTORY Surgical History[2] CURRENT MEDICATIONS Previous Medications AMITRIPTYLINE (ELAVIL) 75 MG TABLET Take 75 mg by mouth Nightly. AVS from 03/03 from [facility] with Dr. Benitez states: discontinue the elavil for now - we will taper it down. Take 50 mg 4-5 days, then take 25 mg for 4-5 days then stop. APOAEQUORIN (PREVAGEN) 10 MG CAPSULE Take 10 mg by mouth daily. ASPIRIN 81 MG EC TABLET Take 81 mg by mouth in the morning. BIOTIN 5000 MCG CAPSULE Take 5,000 mcg by mouth daily. OTC per patient CALCIUM CARB-CHOLECALCIFEROL 600-10 MG-MCG TABLET Take 1 tablet by mouth in the morning and 1 tablet in the evening. FLUCONAZOLE (DIFLUCAN) 200 MG TABLET Take 200 mg by mouth daily. FLUDROCORTISONE (FLORINEF) 0.1 MG TABLET Take 1 tablet (0.1 mg) by mouth 2 times daily. LEVOTHYROXINE (SYNTHROID, LEVOXYL) 75 MCG TABLET Take 75 mcg by mouth every morning (before breakfast). MYCOPHENOLATE (CELLCEPT) 500 MG TABLET Take 1,000 mg by mouth 2 times daily. 1000 mg in morning and 500 at night per patient ONDANSETRON (ZOFRAN) 4 MG TABLET Take 4 mg by mouth every 8 hours as needed for nausea or vomiting. New prescription, unsure of times or dose ALLERGIES Azithromycin and Seasonal FAMILY HISTORY Family History[3] SOCIAL HISTORY Social History[4] SCREENINGS PHYSICAL EXAM ED Triage Vitals [01/22/25 0352] Temp Heart Rate Resp BP 37.7 ?C (99.9 ?F) 102 18 103/57 SpO2 Temp Source Heart Rate Source Patient Position 94 % Oral -- -- BP Location FiO2 (%) -- -- Physical Exam Constitutional: General: She is not in acute distress. Appearance: She is not ill-appearing, toxic-appearing or diaphoretic. HENT: Head: Normocephalic and atraumatic. Right Ear: External ear normal. Left Ear: External ear normal. Nose: Nose normal. Mouth/Throat: Mouth: Mucous membranes are moist. Pharynx: Oropharynx is clear. Eyes: Extraocular Movements: Extraocular movements intact. Conjunctiva/sclera: Conjunctivae normal. Cardiovascular: Rate and Rhythm: Regular rhythm. Tachycardia present. Pulses: Normal pulses. Pulmonary: Effort: Pulmonary effort is normal. No respiratory distress. Breath sounds: No stridor. No wheezing, rhonchi or rales. Chest: Chest wall: No tenderness. Abdominal: General: Abdomen is flat. There is no distension. Tenderness: There is no abdominal tenderness. There is no guarding or rebound. Musculoskeletal: General: Normal range of motion. Cervical back: Normal range of motion. Right lower leg: No edema. Skin: General: Skin is warm and dry. Neurological: General: No focal deficit present. Mental Status: She is alert and oriented to person, place, and time. Mental status is at baseline. DIAGNOSTIC RESULTS RADIOLOGY (Per Emergency Physician): Interpretation per the Radiologist below, if available at the time of this note: No orders to display LABS: Labs Reviewed CBC WITH AUTO DIFFERENTIAL - Abnormal Result Value Auto WBC 17.0 (*) RBC 3.15 (*) Hemoglobin 8.5 (*) Hematocrit 26.3 (*) MCV 83.5 MCH 27.0 MCHC 32.3 RDW 13 (more content not included)... Normal [facility] LACTIC ACID WITH REFLEXon Lactate [Moles/Vol] 0.7 mmol/L Normal 0.5-2.2 [facility] Comment on above: Performed By: #### L [id number] ####Cuprous Chloride Helper: LACY OROSCO ([id number] Laboratory - Chemistry and C hemistry - challengeon 01-22-2025 Lactate [Moles/Vol] 0.7 mmol/L 0.5 - 2. 2 mmol/L [facility] Laboratory - Coagulationon 0 01-22-2025 PT Coag (Bld) [Time] 12.4 s High 9.0 - 1 2.0 s [facility] Laboratory - Hematology and Cell countson 01-22-2025 Band form neutrophils (Bld) [#/Vol] 0.5 10*3/uL High NINF - 0.0 10*3/uL [facility] Band form neutrophils/100 WBC (Bld) 3 % High NINF - 0 % [facility] Lymphocytes (Bld) [#/Vol] 0.3 10*3/uL Low 1.0 - 4.3 10*3/uL [facility] Lymphocytes/100 WBC (Bld) 2 % Low 15 - 45 % [facility] Monocytes (Bld) [#/Vol] 1 10*3/uL High 0.0 - 0.9 10*3/uL [facility] Monocytes/100 WBC (Bld) 6 % 5 - 13 % [facility] Neutrophils (Bld) [#/Vol] 15.6 10*3/uL High 1.8 - 7.5 10*3/uL [facility] Ovalocytes LM Ql (Bld) Slight Abnormal (none) [facility] Poikilocytosis LM Ql (Bld) Slight Abnormal (none) [facility] RBC morphology finding Nom (Bld) abnormal [facility] Segmented neutrophils/100 WBC (Bld) 89 % High 38 - 82 % [facility] MANUAL DIFFERENTIAL (CELLAVI DARIUSZ)on 01-22-2025 BAND NEUTROPHILS TOTAL PER COUNTED LEUKOCYTES BY MANUAL COUNT 3 Normal [facility] Comment on above: Performed By: #### L [id number] ####Cuprous Chloride Helper: LACY OROSCO ([phone])[address] BANDS (10*3/UL) IN BLOOD-CELLAVISION 0.5 10*3/uL High <=0.0 [facility] Comment on above: Performed By: #### L [id number], [id number] ####Cuprous Chloride Helper: LACY OROSCO ([phone])[facility])[address] [place] [address] [place] BASOPHILS TOTAL PER COUNTED LEUKOCYTES BY MANUAL COUNT Normal [facility] Comment on above: Performed By: #### L [id number], [id number] ####Cuprous Chloride Helper: LACY OROSCO ([phone])[facility])[address] [place] [address] [place] BLASTS TOTAL PER COUNTED LEUKOCYTES BY MANUAL COUNT Normal [facility] Comment on above: Performed By: #### L [id number], [id number] ####Cuprous Chloride Helper: LACY OROSCO ([phone])[facility])[address] [place] [address] [place] EOSINOPHILS TOTAL PER COUNTED LEUKOCYTES BY MANUAL COUNT Normal [facility] Comment on above: Performed By: #### L [id number], [id number] ####Cuprous Chloride Helper: LACY OROSCO ([phone])[facility])[address] [place] [address] LYMPHOCYTES (10*3/UL) IN BLOOD-CELLAVISION 0.3 10*3/uL Low 1.0-4.3 [facility] Comment on above: Performed By: #### L [id number], [id number] ####Cuprous Chloride Helper: LACY OROSCO ([phone])[facility])[address] [place] [address] LYMPHOCYTES TOTAL PER COUNTED LEUKOCYTES BY MANUAL COUNT 2 Normal [facility] Comment on above: Performed By: #### L [id number], [id number] ####Cuprous Chloride Helper: LACY OROSCO ([phone])[facility])[address] [place] [address] [place] LYMPHOCYTES/100 LEUKOCYTES IN BLOOD-CELLAVISION 2 % Low 15-45 [facility] Comment on above: Performed By: #### L [id number], [id number] ####Cuprous Chloride Helper: LACY OROSCO ([phone])[facility])[address] [place] [address] METAMYELOCYTES TOTAL PER COUNTED LEUKOCYTES BY MANUAL COUNT Normal [facility] Comment on above: Performed By: #### L [id number], [id number] ####Cuprous Chloride Helper: LACY OROSCO ([phone])[facility])[address] [place] [address] MONOCYTES (10*3/UL) IN BLOOD-CELLAVISION 1.0 10*3/uL High 0.0-0.9 [facility] Comment on above: Performed By: #### L [id number], [id number] ####Cuprous Chloride Helper: LACY OROSCO ([phone])[facility] ([facility])[address] [place] [address] [place] MONOCYTES TOTAL PER COUNTED LEUKOCYTES BY MANUAL COUNT 6 Normal [facility] Comment on above: Performed By: #### L [id number], [id number] ####Cuprous Chloride Helper: LACY OROSCO ([phone])[facility] ([facility])[address] [place] [address] [place] MONOCYTES/100 LEUKOCYTES IN BLOOD-SARIKA 6 % Normal 5-13 [facility] Comment on above: Performed By: #### L [id number], [id number] ####Cuprous Chloride Helper: LACY OROSCO ([phone])[facility] ([facility])[address] [place] [address] MYELOCYTES COUNTED BY MANUAL COUNT Normal [facility] Comment on above: Performed By: #### L [id number], [id number] ####Cuprous Chloride Helper: LACY OROSCO ([phone])[facility] ([facility])[address] [place] [address] [place] NEUTROPHILS BAND FORM/100 LEUKOCYTES IN BLOOD-CELLAVISI 3 % High <=0 [facility] Comment on above: Performed By: #### L [id number], [id number] ####Cuprous Chloride Helper: LACY OROSCO ([phone])[facility] ([facility])[address] [place] [address] [place] NEUTROPHILS TOTAL PER COUNTED LEUKOCYTES BY MANUAL COUNT 88 Normal [facility] Comment on above: Performed By: #### L [id number], [id number] ####Cuprous Chloride Helper: LACY OROSCO ([phone])[facility] ([facility])[address] [place] [address] [place] OVALOCYTES PRESENCE IN BLOOD BY LIGHT MICROSCOPY Slight Abnormal (none) [facility] Comment on above: Performed By: #### L [id number], [id number] ####Cuprous Chloride Helper: LACY OROSCO ([phone])[facility] ([facility])[address] [place] [address] [place] POIKILOCYTOSIS (PRESENCE) IN BLOOD BY LIGHT MICROSCOPY Slight Abnormal (none) [facility] Comment on above: Performed By: #### L [id number], [id number] ####Cuprous Chloride Helper: LACY OROSCO ([phone])[facility] ([facility])[address] [place] [address] [place] PROMYELOCYTES TOTAL PER COUNTED LEUKOCYTES BY MANUAL COUNT Normal [facility] Comment on above: Performed By: #### L [id number], [id number] ####Cuprous Chloride Helper: LACY OROSCO ([phone])[facility] ([facility])[address] [place] [address] [place] RBC MORPHOLOGY IN BLOOD abnormal Normal [facility] Comment on above: Performed By: #### L [id number], [id number] ####Cuprous Chloride Helper: LACY OROSCO ([phone])[facility])[address] [place] [address] [place] SEGMENTED NEUTROPHILS (10*3/UL) IN BLOOD-CELLAVISION 15.6 10*3/uL High 1.8-7.5 [facility] Comment on above: Performed By: #### L [id number], [id number] ####Cuprous Chloride Helper: LACY OROSCO ([phone])[facility] ([facility])[address] [place] [address] [place] SEGMENTED NEUTROPHILS/100 LEUKOCYTES-CE 89 % High 38-82 [facility] Comment on above: Performed By: #### L [id number], [id number] ####Cuprous Chloride Helper: LACY OROSCO ([phone])[facility] ([facility])[address] [place] [address] [place] UNCLASSIFIED CELLS TOTAL PER COUNTED LEUKOCYTES BY MANUAL COUNT Normal [facility] Comment on above: Performed By: #### L [id number], [id number] ####Cuprous Chloride Helper: LACY OROSCO ([phone])[facility])[address] [place] [address] [place] VARIANT LYMPHOCYTES TOTAL PER COUNTED LEUKOCYTES BY MANUAL COUNT Normal [facility] Comment on above: Performed By: #### L [id number], [id number] ####Cuprous Chloride Helper: LACY OROSCO ([phone])[facility])[address] [place] [address] MRSA BY PCRon 01-22-2025 MRSA BY PCR STAPHYLOCOCCUS AUREU S Reference Not Detected Not Detected MECA GENE Reference Not Detected Not Detected ORDER COMMENTS: No Staphylococcus aureus detected. Negative nasal MRSA PCR has a high negative predictive value for MRSA pneumonia. Consider stopping Vancomycin if no other clinical indication. Contact Antimicrobial Stewardship for further recommendations. Staphylococcus aureus nasal screen by real-time PCR. This test was modified and its performance characteristics determined by [facility]. The [place]. [place]. Food and Drug Administration has not approved or cleared this test; however, FDA clearance or approval is not currently required for clinical use. The results are not intended to be used as the sole means for clinical diagnosis or patient management decisions. Normal [facility] Comment on above: Performed By: #### L [id number] ####Cuprous Chloride Helper: LACY OROSCO ([phone])[address] No Panel Informationon 01-22 Extra Tube Hold for add-ons. [facility] Comment on above: Auto resulted. [facility] Interpretation and review of laboratory results Normal [facility] Atypical Lymphocytes Manual [facility] Bands Manual 3 [facility] Basophils Manual [facility] Blasts Manual [facility] Eosinophils Manual [facility] Interpretation and review of laboratory results Abnormal [facility] Lymphocytes Manual 2 [facility] Metamyelocytes Manual [facility] Monocytes Manual 6 [facility] Myelocytes Manual [facility] Neutrophils Manual 88 [facility] Promyelocytes Manual [facility] Unclassified Cells, Manual [facility] PROTHROMBIN TIMEon INR Coag (PPP) [Relative time] 1.2 {INR} High 0.9-1.1 [facility] Comment on above: Result Comment: Fernandez mmended Anticoagulant Therapy: SEE BELOW ----- INR of 2.0 - 3.0 : - Prophylaxis of Venous Thrombosis (high-risk surgery) - Treatment of Venous Thrombosis - Treatment of Pulmonary Embolism (Includes tissue heart valves, Acute Myocardial Infarction to prevent systemic embolism, Valvular Heart Disease, and Atrial Fibrillation) ----- INR of 2.5 - 3.5 : - Mechanical Prosthetic Valves (high risk) - If oral anticoagulant therapy is used to prevent Myocardial Infarction Performed By: #### L [id number] ####Cuprous Chloride Helper: LACY OROSCO ([phone])[facility] ([facility])[address] [place] [address] PT Coag (PPP) [Time] 12.4 s High 9.0-12.0 [facility] Comment on above: Performed By: #### L [id number] ####Cuprous Chloride Helper: LACY OROSCO ([phone])[facility] ([facility])[address] [place] [address] PT Coag (Bld) [Time]on 01-22 INR Coag (PPP) [Relative time] 1.2 {INR} High 0.9 - 1.1 [facility] Comment on above: Recommended Anticoag ulant Therapy: SEE BELOW ----- INR of 2.0 - 3.0 : - Prophylaxis of Venous Thrombosis (high-risk surgery) - Treatment of Venous Thrombosis - Treatment of Pulmonary Embolism (Includes tissue heart valves, Acute Myocardial Infarction to prevent systemic embolism, Valvular Heart Disease, and Atrial Fibrillation) ----- INR of 2.5 - 3.5 : - Mechanical Prosthetic Valves (high risk) - If oral anticoagulant therapy is used to prevent Myocardial Infarction Interpretation and review of laboratory results Abnormal [facility] Progress Noteon 01-22-2025 Progress Note Pharmacy Managed Van comycin Dosing Service Consult Note Consult Date: 01/22/25 Patient Name: Eren Merchant Allergies: Azithromycin and Seasonal Age: 64 y.o. Sex: female Estimated body mass index is 27.7 kg/m? as calculated from the following: Height as of this encounter: 1.664 m (5' 5.5). Weight as of this encounter: 76.7 kg (169 lb). DW: 77 kg Lab Results Component Value Date CREATININE 1.83 (H) 01/22/2025 CREATININE 1.77 (H) 03/09/2024 BUN 28 (H) 01/22/2025 BUN 40 (H) 03/09/2024 WBC 17.0 (H) 01/22/2025 WBC 13.8 (H) 03/09/2024 Calculated CrCl: 36 mL/min (Cockcroft-Gault) Consulted By: Jennie Chang DO Infectious Diagnosis: Sepsis (AUC Goal 400-600 mg/L*hr) Antimicrobials: Patient recently received an antibiotic (last 12 hours) None Assessment/Plan: Doses, serum creatinine, and vancomycin levels interfaced automatically to [employer] and data has been analyzed and interpreted. Give loading dose vancomycin 1500 mg x1. Then start Vancomycin 750 mg every 24 hours based on patient age, weight, renal function, and infectious diagnosis (9.8 mg/kg). Predicted AUC = 540 mg/L*hr (goal 400-600 mg/L*hr) PAUC = 93% (probability that AUC is >400 mg/L*hr) Pconc = 30% (probability that Ctrough is above 20 mcg/mL (toxicity)) Will assess random level on 01/23/25 and adjust as appropriate. Trend serum creatinine. Orders placed. Thank you for this consult. Please secure text or call with questions. DATE: 01/22/25 TIME: 7:39 PM Anastacio DempseyD Clinical Pharmacist Available via Secure Chat [facility] Progress Note JAN- CORE MEASURE D MARGARET SIRS Criteria Sepsis Criteria Severe Sepsis Criteria Septic Shock Criteria Must meet 2: [x] Temperature > 100.4 F (38 C) or < 96.8 F (36 C) [x] HR > 90 [] RR > 20 [x] WBC > 12 or < 4 or 10% bands Must be confirmed or suspected to move forward with diagnosis of sepsis. Must select at least one: [x] Bacterial Infection Confirmed or Suspected. [] Viral Infection Confirmed or Suspected. [] Fungal Infection Confirmed or Suspected. [] No infection present. Patient does not meet criteria for Sepsis. Must meet 1: [] Lactate > 2 or [] Signs of Organ Dysfunction: - SBP < 90 or MAP < 65 - Altered mental status - Creatinine > 2 or increased from baseline - Urine Output < 0.5 ml/kg/hr - Bilirubin > 2 - INR > 1.5 - Platelets < 100,000 - Acute Respiratory Failure as evidenced by new need for NIPPV or mechanical ventilation [] No criteria met for Severe Sepsis. Must meet 1: [] Lactate = or > 4 or [] SBP < 90 or MAP < 65 for at least two readings in the first hour after fluid bolus administration [] No criteria met for Septic Shock. No data found. Recent Labs 01/22/25 0409 WBC 17.0* CREATININE 1.83* INR 1.2* PLT 221 Sepsis Identified at 1912 hours. Fluid Resuscitation Rational: starting with 1 L LR bolus given CKD Infection Source: Unknown Reassessment Exam: Not applicable. Patient does not have Septic Shock. Tonny Mendoza DO Normal [facility] Progress Note Patient evaluated at the bedside during AM rounds today. She has only had light bleeding when using the restroom. Megace was ordered but has not been given yet so bleeding has slowed significantly on its own. She desires hysteroscopy D&C while she is in the hospital given difficulty with transportation for follow up as an outpatient. We discussed that urology may recommend surgical intervention so will await their recommendations prior to scheduling a procedure, which could be done as a combo case instead. She was agreeable to this plan. She was also already eating breakfast during my exam so would need to defer surgery until patient is NPO regardless. Normal [facility] URINE CULTUREon 01-22-2025 Bacteria identified Cx Nom (U) URINE CULTURE (A) Reference ESCHERICHIA COLI >100,000 CFU/mL Escherichia coli (A) STREPTOCOCCUS AGALACTIAE (GROUP B) >100,000 CFU/mL Streptococcus agalactiae (Group B) (A) Susceptibility testing not performed. Beta-hemolytic streptococci are universally susceptible to beta-lactam antibiotics. If patient is beta-lactam allergic, providers should call the [facility] ([phone]) within 3 days to request susceptibility testing. Organism: ESCHERICHIA COLI Antibiotic MELVIN Interpretation Status Amoxicillin / Clavulanate 4 ug/ml S F Ampicillin >=32 ug/ml R F Ampicillin / Sulbactam 16 ug/ml I F Aztreonam <=1 ug/ml S F Cefazolin 16 ug/ml R F Cefepime <=0.12 ug/ml S F Ceftriaxone <=0.25 ug/ml S F Cefuroxime axetil 4 ug/ml S F Ciprofloxacin <=0.06 ug/ml S F Ertapenem <=0.12 ug/ml S F Gentamicin <=1 ug/ml S F Levofloxacin <=0.12 ug/ml S F Meropenem <=0.25 ug/ml S F Nitrofurantoin <=16 ug/ml S F Piperacillin / Tazobactam <=4 ug/ml S F Trimethoprim / Sulfamethoxazole >=320 ug/ml R F [ S = SUSCEPTIBLE R = RESISTANT I = INTERMEDIATE S-DD = Susceptible-dose dependent NS = Non-susceptible NO = No Interpretation ] Normal [facility] Comment on above: Performed By: #### L [id number] ####Cuprous Chloride Helper: LACY OROSCO ([phone])[address] Bacteria identified Cx Nom (U) URINE CULTURE (A) Reference ESCHERICHIA COLI >100,000 CFU/mL Escherichia coli (A) For identification and/or sensitivity, refer to culture collected on: 01/22/2025 at 20:27 (25[facility]-[id number]) STREPTOCOCCUS AGALACTIAE (GROUP B) 50,000-90,000 CFU/mL Streptococcus agalactiae (Group B) (A) Susceptibility testing not performed. Beta-hemolytic streptococci are universally susceptible to beta-lactam antibiotics. If patient is beta-lactam allergic, providers should call the [facility] ([phone]) within 3 days to request susceptibility testing. [ S = SUSCEPTIBLE R = RESISTANT I = INTERMEDIATE S-DD = Susceptible-dose dependent NS = Non-susceptible NO = No Interpretation ] Normal [facility] Comment on above: Performed By: #### L [id number], [id number] ####Cuprous Chloride Helper: LACY OROSCO ([phone])[facility] ([facility])[address] [place] [address] Urinalysis complete panel (U )Ordered By: Ching Azar on 01-22-2025 Bacteria LM.HPF (Urine sed) [#/Area] Few Abnormal Negative /HPF [facility] Bilirubin Ql (U) Negative Negative mg/dL [facility] Clarity (U) Extra Turbid Abnormal Clear [facility] Color (U) Yellow Lt. Yellow [facility] Epithelial cells.squamous LM.HPF (Urine sed) [#/Area] Negative [facility] Glucose Ql (U) Normal Normal (<70) mg/dL [facility] Hemoglobin Ql (U) 1.0 mg/dL Abnormal Negative [facility] Interpretation and review of laboratory results Abnormal [facility] Ketones (U) [Mass/Vol] Negative Negat leif mg/dL [facility] Leukocyte clumps LM.HPF (Urine sed) [#/Area] Many Abnormal Negative /HPF [facility] Leukocyte esterase Test strip Ql (U) 500 Abnormal Negative Loren/uL [facility] Nitrite Ql (U) Negative Negative [facility] pH (U) 7.5 [pH] 5.0 - 8.0 pH [facility] Protein (U) [Mass/Vol] 50 mg/dL Abnormal Negative [facility] RBC LM.HPF (Urine sed) [#/Area] 51-100 Abnormal [facility] Specific gravity (U) [Rel density] 1.011 1.005 - 1.030 [facility] Urobilinogen (U) [Mass/Vol] Normal Normal (0-1) mg/dL [facility] WBC LM.HPF (Urine sed) [#/Area] /[HPF] Abnormal [facility] This specimen has be en reflexed to urine culture. [facility] 12 Lead EKGon 01-21-2025 12 Lead EKG [facility] Cardiovascular Services [address] [place] [address] 12 Lead EKG 01/21/251947 MR#: [id number] Acct: [id number] Name: EREN MERCHANT Rep #: [id number] : 1960 64 From: Mathew Parkinson MD Attending Dr: Status: DEP ER Ordering Dr: Michelle Mosher DO Date: 01/21/25 Location: ED Sex: F C Admitted: Test Reason : DYSRHYTHMIA Blood Pressure : */* mmHG Vent. Rate : 108 BPM Atrial Rate : 108 BPM P-R Int : 168 ms QRS Dur : 82 ms QT Int : 340 ms P-R-T Axes : -15 -23 0 degrees QTcB Int : 455 ms Sinus tachycardia Minimal voltage criteria for LVH, may be normal variant ( R in aVL ) Nonspecific T wave abnormality Abnormal ECG Confirmed by Mathew Parkinson ([id number]), photographic editor ABDULKADIR LOPEZ ([id number]) on 01/22/2025 9:53:08 AM Referred By: Confirmed By: Mathew Parkinson 01/22/25 0953 Date Mathew Parkinson MD CC: Dr. Gonzalo Day MD; Dr. Michelle Mosher DO Signed Normal [facility] Abdomen/Pelvis W IV Cont ONL Yon 01-21-2025 Abdomen/Pelvis W IV Cont ONLY [facility] Imaging Services [address] [place] [address] Abdomen/Pelvis W IV Cont ONLY MR#: [id number] Acct: [id number] Name: EREN MERCHANT Rep #: [id number] : 1960 F 64 From: Nain Guthrie MD PCP: Dr. Gonzalo Day MD Status: REG ER Study: Abdomen/Pelvis W IV Cont ONLY Date of Exam: Exam# [id number] Ordering Dr: Michelle Mosher DO PROCEDURE: ABDOMEN/PELVIS W IV CONT ONLY N/A REASON FOR EXAM: VAGINAL BLEEDING TECHNIQUE: Procedure Code: [id number] Modality: CT Procedure: ABDOMEN/PELVIS W IV CONT ONLY Coronal and Sagittal reconstruction series were provided. CONTRAST: Please see CT data VOLUME: Please see CT mL One or more dose reduction techniques were used (e.g., Automated exposure control, adjustment of the mA and/or kV according to patient size, use of iterative reconstruction technique. RADIATION DOSE SUMMARY: CTDlvol: Please see CT mGy DLP: 882.18 mGycm COMPARISON: CT abdomen/pelvis March 03, 2024. The prior report is not available for review. FINDINGS: Study limitations: Lung bases: Trace amount of pleural fluid or pleural thickening at the visualized lung bases. There is some calcified pleural plaque at the right costophrenic angle. Ground-glass and reticular opacities at the visualized lung bases may be due to atelectasis, pulmonary parenchymal fibrotic changes or interstitial pneumonitis. Clinical correlation with symptoms. Liver: Hepatic length is 15.5 cm. Hepatic attenuation is consistent with mild steatosis. 3 mm hypodense hepatic lesion noted within the posterior segment of the right lobe, too small to further characterize. Clinical correlation with risk factors. Gallbladder/biliary: The gallbladder is not visualized. No significant biliary dilation. Pancreas: No pancreatic inflammation. No pancreatic ductal dilation. Spleen: The spleen is not enlarged. Adrenals: The adrenal glands are within normal limits. Kidneys/ureters: The kidneys appear edematous bilaterally with moderate to severe bilateral hydronephrosis. Hydronephrosis appears slightly worse than the prior exam. There is mild bilateral urothelial enhancement. Cause of hydronephrosis is indeterminate. No obstructive calculi are seen. Please see urinary bladder findings. Nonspecific bilateral perinephric stranding. Lobular contour of the kidneys. Areas of renal cortical thinning noted. Bilateral perinephric stranding. Any possibility of infection to be correlated with urinalysis and culture. 10 mm right lower pole renal cyst. Gastrointestinal: The visualized distal esophagus appears thick-walled and edematous. Clinical correlation for esophagitis. The stomach is not sufficiently distended to evaluate wall thickening. No appearance of the complete small bowel obstruction. Nonspecific fluid-filled loops of small bowel. No focal mesenteric inflammation. Portions of the colon and rectum are distended with fecal material up to 9 cm in diameter which could be correlated for constipation. No pericolonic inflammation. No evidence of acute diverticulitis. Colonic loops are redundant but do not appear to be involved by volvulus. Appendix: The appendix is not visualized and may have been removed. Peritoneal/retroperitoneal: No free intraperitoneal air. There is no free fluid. Vascular: The entire heart is not included on this exam. Visualized cardiac size is enlarged. No abdominal aortic aneurysm, dissection or retroperitoneal hemorrhage. Mild appearing atherosclerosis noted. Urinary bladder: The urinary bladder appears irregularly thick-walled. There is mild perivesical stranding with mucosal enhancement. Reticular density or enhancement noted within the urinary bladder. Findings may be secondary to infection containing bladder debris. Malignancy can not be ruled out. Inflammation/infection could be the cause of bilateral hydronephrosis, however stricture or neoplasm can not be ruled out. Urology consultation is advised for diagnosis. Direct visualization and soft tissue diagnosis as clinically appropriate. Correlation with hematuria and urinalysis. Reproductive: Anteverted uterus measuring 6.5 cm in length. Slight heterogeneity of the cervix. Correlation with Pap smear. The endometrial complex is not well characterized by this technique. The ovaries are not well assessed by this technique. If there are pelvic symptoms consider ultrasound. Soft tissues: No body wall hematoma or soft tissue emphysema. Left posterior gluteal electronic stimulator device noted. Osseous: Mild superior endplate compression fracture deformity at T12 is similar to the prior exam. Moderately severe superior endplate compression fracture deformity at L3 is new compared to the prior exam but of indeterminate immediate acuity. Clinical correlation is (more content not included)... Normal [facility] Absolute lymphocyte countOrd ered By: Michelle Mosher on 01-21-2025 Lymphocytes Auto (Unsp spec) [#/Vol] 0.75 10*3/uL Low 0.83-4.51 [facility] Absolute neutrophil countOrd ered By: Michelle Mosher on 01-21-2025 Neutrophils (Bld) [#/Vol] 19.8 10*3/uL High 2.0-7.7 [facility] Anion gap in Serum or Plasma Ordered By: Michelle Mosher on 01-21-2025 Anion gap [Moles/Vol] 12 mmol/L 5-15 [facility] Automated lymphocyte count a s percentage of total leukocytesOrdered By: Michelle Mosher on 01-21-2025 Lymphocytes/100 WBC Auto (Unsp spec) 3.3 % Low 19-41 [facility] BRCon 01-21-2025 RC Normal [facility] Comment on above: Result Comment: [id number] OP RC TRANSFUSED 01/22/25 0011 [id number] OP RC TRANSFUSED 01/21/255 Performed By: #### B ####[facility] [address] [place], [address] BUN/creatinine ratioOrdered By: Michelle Mosher on 01-21-2025 Urea nitrogen/Creatinine [Mass ratio] 15.5 mg/mg 10-20 [facility] Basophil percentageOrdered B y: Michelle Mosher on 01-21-2025 Basophils/100 WBC (Bld) 0.1 % 0-1 [facility] Bilirubin, totalOrdered By: Michelle Mosher on 01-21-2025 Bilirubin [Mass/Vol] 0.49 mg/dL Normal 0.00-1.30 [facility] Comment on above: Performed By: #### L 100.0100, BTS, L500.4050 #### [facility] [address] [place], [address] CBC W/Diff, Automatedon 09- RED CELL MORPH NORM C+C Normal NORM C C [facility] Comment on above: Performed By: #### L 100.0100, BTS, L500.4050 #### [facility] [address] [place], [address] PLT EST ADEQUATE Normal ADEQ [facility] Comment on above: Performed By: #### L 100.0100, BTS, L500.4050 #### [facility] [address] [place], [address] Carbon dioxide, total [Moles /volume] in Central venous bloodOrdered By: Michelle Mosher on 01-21-2025 CO2 [Moles/Vol] 22.4 mmol/L Normal 21.0-32.0 [facility] Comment on above: Performed By: #### L 100.0100, BTS, L500.4050 #### [facility] [address] [place], [address] Chloride assayOrdered By: Hina Mosher on 01-21-2025 Chloride [Moles/Vol] 98 mmol/L Normal 98-108 [facility] Comment on above: Performed By: #### L 100.0100, BTS, L500.4050 #### [facility] [address] [place], [address] Comprehensive Metabolic Prof ilon 01-21-2025 ALK PHOS 102 U/L Normal 35-104 [facility] Comment on above: Performed By: #### L 100.0100, BTS, L500.4050 #### [facility] [address] [place], [address] BUN/CRE 15.5 RATIO Normal 10-20 [facility] Comment on above: Performed By: #### L 100.0100, BTS, L500.4050 #### [facility] [address] [place], [address] ECRCL 27.29 ml/min Low 50-250 [facility] Comment on above: Performed By: #### L 100.0100, BTS, L500.4050 #### [facility] [address] [place], [address] GAP 12 Normal 5-15 [facility] Comment on above: Performed By: #### L 100.0100, BTS, L500.4050 #### [facility] [address] [place], [address] Potassium [Moles/Vol] 3.5 mmol/L Normal 3.3-5.1 [facility] Comment on above: Performed By: #### L 100.0100, BTS, L500.4050 #### [facility] [address] [place], [address] T PROT 6.2 g/dL Normal 5.9-8.4 [facility] Comment on above: Performed By: #### L 100.0100, BTS, L500.4050 #### [facility] [address] [place], [address] Comprehensive Metabolic Prof ilOrdered By: Michelle Mosher on 01-21-2025 AST [Catalytic activity/Vol] 32 U/L Normal <=31 [facility] Comment on above: Performed By: #### L 100.0100, BTS, L500.4050 #### [facility] [address] [place], [address] Emergency Department Summary on 01-21-2025 Emergency Department Summary [facility] Medical Records Department [address] [place] [address] Emergency Department Summary 01/21/25 MR#: [id number] Acct: [id number] Name: EREN MERCHANT Rep #: [id number] : 1960 64 From: Michelle Mosher DO PCP: Dr. Gonzalo Day MD Status:REG ER Location: ED HPI HPI - Female History of Present Illness 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: Vag Bleeding PFSH PFSH Medical History Kidney stones Thyroid disease [...] QDAY #30 tabs 11/21/24 0 12/21/24 Rx multivitamin (Daily Multi-Vitamin 1 tab PO DAILY 12/19/24 12/21/24 History tablet) fludrocortisone 0.1 mg tablet 0.3 mg PO DAILY 12/29/24 Unknown H istory Allergy/AdvReac Type Severity Reaction Status Date / Time cetirizine (From [facility]) Allergy Intermediate Rash Verified 01/21/25 19:26 erythromycin base AdvReac Intermediate Diarrhea Verified 01/21/25 19:26 azithromycin AdvReac Mild Diarrhea Verified 01/21/25 19:26 Family History Mother Thyroid disorder Hypertension Father [...] current alcohol intake frequency: holidays/special occasions only EXAM Physical Exam Const Vital Signs: 01/21/25 19:26 01/21/25 21:20 01/21/25 21:44 Temperature 97.7 F L 99.8 F H Temperature Source Temporal Oral Pulse Rate 114 H 104 H 99 Respiratory Rate 15 18 18 Blood Pressure 92/62 103/55 L 98/68 Blood Pressure Mean 72 71 78 Blood Pressure Source Monitor Blood Pressure Position Semi-Fowlers Blood Pressure Location Left Arm Pulse Ox 100 92 97 Oxygen Delivery Method Room Air Room Air Room Air 01/21/25 21:59 Temperature 99.2 F H Temperature Source Oral Pulse Rate 100 Respiratory Rate 20 H Blood Pressure 98/63 Blood Pressure Mean 74 Blood Pressure Source Monitor Blood Pressure Position Supine Blood Pressure Location Left Arm Pulse Ox 100 Oxygen Delivery Method Room Air MDM MDM MDM Narrative Medical decision making narrative: HISTORY OF PRESENT ILLNESS: Chief complaint: Vaginal bleed 64-year-old female history of nephrolithiasis, Parkinson's disease, hypothyroidism, GERD, DVT, emphysema, overactive bladder, leiomyoma of the uterus presents with vaginal bleeding. Per triage note patient had bright red vaginal bleeding with large clots that started yesterday around 130. Notes she is bleeding through to heavy flow packages. Endorses increased fatigue and shaking. Patient does not take blood thinners. REVIEW OF SYSTEMS: Pertinent positives: Vaginal bleeding, lightheadedness, fatigue, near syncope Pertinent negatives: Chest pain PHYSI (more content not included)... Normal [facility] Eosinophil percentageOrdered By: Michelle Mosher on 01-21-2025 Eosinophils/100 WBC (Bld) 0.0 % 0-5 [facility] Erythrocyte distribution wid th ratioOrdered By: Michelle Mosher on 01-21-2025 Erythrocyte distribution width (RBC) [Ratio] 13.8 % 11.6-14.6 [facility] Erythrocyte distribution wid th standard deviationOrdered By: Michelle Mosher on 01-21-2025 Erythrocyte distribution width (RBC) [Ratio] 42.1 fl 35.1-43.9 [facility] Erythrocyte morphology asses smentOrdered By: Michelle Mosher on 01-21-2025 RBC morphology finding Nom (Bld) NORM C+C NORMAL NORM C&C [facility] Glomerular filtration rate ( GFR) estimation/1.73 sq m using serum, plasma, or whole bOrdered By: Michelle Mosher on 01-21-2025 GFR/1.73 sq M.predicted among non-blacks MDRD (S/P/Bld) [Vol rate/Area] 26 mL/min/{1.73_m2} Low >60 [facility] Comment on above: mL/min/1.73m2 CKD-EP I Creatinine Equation (2020) Result Comment: mL/m in/1.73m2 CKD-EPI Creatinine Equation (2020) Performed By: #### L 100.0100, BTS, L500.4050 #### [facility] [address] [place], [address] Hematocrit Auto (Bld) [Volum e fraction]Ordered By: Michelle Mosher on 01-21-2025 Hematocrit (Bld) [Volume fraction] 26.9 % Low 37-47 [facility] Hemoglobin measurementOrdere d By: Michelle Mosher on 01-21-2025 Hemoglobin (Bld) [Mass/Vol] 8.5 g/dL Low 12.0-15.0 [facility] Immature granulocytes/100 WB C Auto (Bld)Ordered By: Michelle Mosher on 01-21-2025 Immature granulocytes/100 WBC (Bld) 0.700 % 0.0-0.9 [facility] Comment on above: IG% - Immature Granu locytes (promyelocytes, myelocytes and metamyelocytes) > 1% indicates that a LEFT SHIFT is Present. MCV (mean corpuscular volume ) determinationOrdered By: Michelle Mosher on 01-21-2025 MCV (RBC) [Entitic vol] 83.0 fL 81-99 [facility] Mean corpuscular hemoglobin (MCH) determinationOrdered By: Michelle Mosher on 01-21-2025 MCH (RBC) [Entitic mass] 26.2 pg Low 27.0-32.0 [facility] Mean corpuscular hemoglobin concentration (MCHC) determinationOrdered By: Michelle Mosher on 01-21-2025 MCHC (RBC) [Mass/Vol] 31.6 g/dL Low 32-36 [facility] Mean platelet volume determi nationOrdered By: Michelle Mosher on 01-21-2025 Platelet mean volume (Bld) [Entitic vol] 10.1 fL 6.2-12.0 [facility] Monocyte percentageOrdered B y: Michelle Mosher on 01-21-2025 Monocytes/100 WBC (Bld) 9.3 % 0-10 [facility] Neutrophil percentageOrdered By: Michelle Mosher on 01-21-2025 Neutrophils/100 WBC (Bld) 86.6 % High 47-70 [facility] Nucleated red blood cell per centageOrdered By: Michelle Mosher on 01-21-2025 Nucleated RBC/100 WBC (Bld) [Ratio] 0 % 0-5 [facility] Platelet countOrdered By: Hina Mosher on 01-21-2025 Platelets (Bld) [#/Vol] 281 10*3/uL 150-450 [facility] Platelet estimateOrdered By: Michelle Mosher on 01-21-2025 Platelets LM Ql (Bld) ADEQUATE ADEQ [facility] Potassium measurement (mass/ volume)Ordered By: Michelle Mosher on 01-21-2025 Potassium (Unsp spec) [Mass/Vol] 3.5 mmol/L 3.3-5.1 [facility] RBC Auto (Bld) [#/Vol]Ordere d By: Michelle Mosher on 01-21-2025 RBC (Bld) [#/Vol] 3.24 10*6/uL Low 4.2-5.4 [facility] Serum creatinine measurement (mass/volume)Ordered By: Michelle Mosher on 01-21-2025 Creatinine [Mass/Vol] 2.06 mg/dL High 0.70-1.20 [facility] Comment on above: Performed By: #### L 100.0100, BTS, L500.4050 #### [facility] [address] [place], [address] Serum globulin measurementOr dered By: Michelle Mosher on 01-21-2025 Globulin (S) [Mass/Vol] 2.8 g/dL Normal 2.2-4.2 [facility] Comment on above: Performed By: #### L 100.0100, BTS, L500.4050 #### [facility] [address] [place], [address] Serum glucose measurement (m ass/volume)Ordered By: Michelle Mosher on 01-21-2025 Glucose [Mass/Vol] 157 mg/dL High 70-99 [facility] Comment on above: Performed By: #### L 100.0100, BTS, L500.4050 #### [facility] [address] [place], [address] Serum or plasma alanine rodas otransferase (ALT) measurementOrdered By: Michelle Mosher on 01-21-2025 ALT [Catalytic activity/Vol] U/L Normal <=34 [facility] Comment on above: Performed By: #### L 100.0100, BTS, L500.4050 #### [facility] [address] [place], [address] Serum or plasma albumin raman urement (mass/volume)Ordered By: Michelle Mosher on 01-21-2025 Albumin [Mass/Vol] 3.3 g/dL Low 3.4-4.8 [facility] Comment on above: Performed By: #### L 100.0100, BTS, L500.4050 #### [facility] [address] [place], [address] Serum or plasma albumin/glob ulin mass ratioOrdered By: Michelle Mosher on 01-21-2025 Albumin/Globulin [Mass ratio] 1.2 {ratio} Normal 0.9-2.4 [facility] Comment on above: Performed By: #### L 100.0100, BTS, L500.4050 #### [facility] [address] [place], [address] Serum or plasma alkaline delia sphatase measurementOrdered By: Michelle Mosher on 01-21-2025 ALP [Catalytic activity/Vol] 102 U/L 35-104 [facility] Serum or plasma calcium raman urement (mass/volume)Ordered By: Michelle Mosher on 01-21-2025 Calcium [Mass/Vol] 9.3 mg/dL Normal 7.6-11.0 [facility] Comment on above: Performed By: #### L 100.0100, BTS, L500.4050 #### [facility] [address] [place], [address] Serum or plasma urea nitroge n measurement (mass/volume)Ordered By: Michelle Mosher on 01-21-2025 Urea nitrogen [Mass/Vol] 32 mg/dL High 4-19 [facility] Comment on above: Performed By: #### L 100.0100, BTS, L500.4050 #### [facility] [address] [place], [address] Sodium levelOrdered By: Jennifer saleh Nomi on 01-21-2025 Sodium [Moles/Vol] 132 mmol/L Low 133-145 [facility] Comment on above: Performed By: #### L 100.0100, BTS, L500.4050 #### [facility] [address] [place], [address] Total proteinOrdered By: Ron kaye Nomi on 01-21-2025 Protein [Mass/Vol] 6.2 g/dL 5.9-8.4 [facility] Transvaginal Non-on 01-21-2025 Transvaginal Non- [facility] Imaging Services [address] [place] [address] Transvaginal Non- MR#: [id number] Acct: [id number] Name: EREN MERCHANT Rep #: [id number] : 1960 F 64 From: Kemar Garcia MD PCP: Dr. Gonzalo Day MD Status: [facility] Study: Transvaginal Non- Date of Exam: Exam# [id number] Ordering Dr: Michelle Mosher DO PROCEDURE: TRANSVAGINAL NON- 01/21/2025 REASON FOR EXAM: VAGINAL BLEEDING TECHNIQUE: Procedure Code: USTVAG Modality: US Procedure: TRANSVAGINAL NON- COMPARISON: CT dated earlier on the same day. FINDINGS: The uterus measures 6.5 x 3.0 by 4.1 cm. A questionable subcentimeter fibroid may be present. The uterine cavity is fluid-filled, however the actual endometrium is not clearly identified or measured. The measured endometrial thickness is 12.1 mm, however this includes the fluid-filled cavity. Within the left adnexa, there is an oblong tubular shaped fluid-filled structure, concerning for a dilated fallopian tube. This may represent hydrosalpinx. Alternatively, this could represent a severely dilated ureter. A 7.1 x 5.8 x 5.8 cm fluid-filled structure within the midline of the pelvis may represent the urinary bladder, within which there is heterogeneous echogenic debris Neither ovary is visualized.. US/Transvaginal Non- IMPRESSION: 1. [place] tubular shaped fluid-filled structure in the left adnexa. This could represent hydrosalpinx, however this might also represent a severely dilated ureter. 2. Fluid-filled structure in the midline of the pelvis may represent the urinary bladder, within which there is heterogeneous echogenic debris. Consider further evaluation via cystoscopy. 3. Fluid-filled uterine cavity. This is atypical for the patient's age. The endometrium itself is not clearly identified or measured. 4. Questionable subcentimeter uterine fibroid. Reading Location: [facility] CC: Dr. Gonzalo Day MD; Dr. Michelle Mosher DO Shipping Services Sales Representative: Signed Normal [facility] Type AND Screenon 01-21-2025 ABO and Rh group Nom (Bld) Blood group O Rh(D) positive Normal [facility] Comment on above: Order Comment: A Performed By: #### L 100.0100, BTS, L500.4050 #### [facility] [address] [facility] [place], [address] White blood cell (WBC) count Ordered By: Michelle Mosher on 01-21-2025 WBC (Bld) [#/Vol] 22.8 10*3/uL High 4.4-11.0 [facility] Abdomen Single Viewon 2024 Abdomen Single View [facility] Imaging Services [address] [place] [address] Abdomen Single View MR#: [id number] Acct: [id number] Name: ERNE MERCHANT Rep #: [id number] : 1960 F 64 From: Bogdan Ricci MD PCP: Dr. Gonzalo Day MD Status: REG CLI Study: Abdomen Single View Date of Exam: 12/29/24 Exam# [id number] Ordering Dr: Hilary Soto PROCEDURE: ABDOMEN SINGLE [...] constipation. Other findings as noted. Reading Location: [id number] CC: Dr. Gonzalo Day MD; KAUSHAL Alas [employer] Sales Representative: Signed Normal [facility] Gastroenterology Visit Repor ton 12-29-2024 Gastroenterology Visit Report [facility] Gastroenterology [address] [place] [address] OFFICE VISIT Date of Service: 12/29/24 MR#: [id number] Acct: [id number] Name: EREN MERCHANT Rep #: [id number] : 1960 Provider: KAUSHAL Alas Age/Sex: 64/F Location: [facility] Status: Signed Intake Vital Signs 12/22/24 12:21 Height 5 ft 5 in Intake Visit Reasons: ABORTED COLONOSCOPY -IMPACTED 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: abd pain Allergies cetirizine (From Zyrtec) Allergy (Intermediate, Verified 12/22/24 12:18) Rash erythromycin [...] recommendation for f/u in 8 weeks. OV 11..25 Pt feeling better on anti fungal medications but since discontinuing it she has had some symptoms. Endorses burning, globus sensation and cough. Start Fluconazole 200 mg daily for 14 days. Scheduled for EGD EGD .25;- Normal esophagus. Biopsied. - Small hiatal hernia. [...] She h (more content not included)... Normal [facility] Colonoscopy Reporton 025 Colonoscopy Report [facility] Medical Records Department [address] [place] [address] Colonoscopy Report MR#: [id number] Acct: [id number] Name: EREN MERCHANT Rep #: [id number] : 1960 64 From: Aditya Friend DO PCP: Dr. Gonzalo Day MD Status:REG SDC Patient Name: Eren Merchant Procedure Date: 12/22/2024 [...] was poor. Procedure Code(s): --- Professional --- 09097, 53, Colonoscopy, flexible; diagnostic, including collection of specimen(s) by brushing or washing, when performed (separate procedure) CPT copyright 2021 [employer]. All rights reserved. The codes documented in this report are preliminary and upon plastics fabricator or welder review may be revised to meet current compliance requirements. Aditya Cota DO 12/22/2024 1:55:32 PM This report has been signed electronically. Number of Addenda: 0 Note Initiated On: 12/22/2024 1:36 PM 12/22/24 1355 Date Aditya Cota DO Cosigner Signature: Date (if indicated) CC: Dr. Gonzalo Day MD; Aditya Cota DO Date Dictated: 12/22/24 1336 Date Transcribed: Shipping Services Sales Representative: MATIAS Signed [facility] MR/OP.[place] 12-22-2024 MR/OP.[facility] Medical Records Department [address] [place] [address] Provation Physician Letter MR#: [id number] Acct: [id number] Name: EREN MERCHANT Rep #: [id number] : 1960 64 From: Aditya Cota DO PCP: Dr. Gonzalo Day MD Status:REG [facility] 12/22/2024 Gonzalo Day Re : Colonoscopy procedure [...] Day MD; Aditya Cota DO Date Dictated: 12/22/24 1336 Date Transcribed: Shipping Services Sales Representative: MATIAS Signed [facility] MR/POSTOP.[facility] 12-22-2024 MR/POSTOP.[facility] Medical Records Department [address] [place] [address] Anesthesia Postop Eval I 12/22/24 135 MR#: [id number] Acct: [id number] Name: EREN MERCHANT Rep #: [id number] : 1960 64 From: Ana Parod CRNA PCP: Dr. Gonzalo Day MD Status:REG SDC Y Race: C Location: [place] [address] Anesthesia: Postop Eval I Current Vital Signs Temperature: 97.9 F Pulse Rate: 84 Blood Pressure: 123/55 Respiratory Rate: 20 Pulse Ox: 100 Assessment Airway patent: Yes Spontaneous unlabored respirations: Yes nausea: No Vomiting: No Anesthesia Complication: No Fluid Hydration Crystalloid volume administer (ml): 200 Total IV fluid infused: 200 Progress Note Anesthesia document: Postop Eval 1 completed: Yes 12/22/24 1359 Date Ana Pardo CRNA Cosigner Signature: Date CC: Signed Normal [facility] Basic metabolic 2000 panelon 12-20-2024 Anion gap [Moles/Vol] 10 mmol/L Normal 8-15 [facility] Comment on above: Order Comment: Speci men Type: BLOOD SPECIMENOrdering Facility: [facility] [place] Address: [address] [place] [address] Performed By: #### 2 4321-2 ####[facility] [id number] [place] [address] [place] Calcium [Mass/Vol] 9.9 mg/dL Normal 8.5-10.2 [facility] Comment on above: Order Comment: Speci men Type: BLOOD SPECIMENOrdering Facility: [facility] [place] Address: [address] [place] [address] Performed By: #### 2 4321-2 ####[facility] [id number] [place] [address] [place] Chloride [Moles/Vol] 103 mmol/L Normal 98-107 [facility] Comment on above: Order Comment: Speci men Type: BLOOD SPECIMENOrdering Facility: [facility] [place] Address: [address] [place] [address] Performed By: #### 2 4321-2 ####[facility] [id number] [place] [address] [place] CO2 [Moles/Vol] 23 mmol/L Normal 22-30 [facility] Comment on above: Order Comment: Speci men Type: BLOOD SPECIMENOrdering Facility: [facility] [place] Address: [address] [place] [address] Performed By: #### 2 4321-2 ####[facility] [id number] [place] [address] [place] Creatinine [Mass/Vol] 1.40 mg/dL High 0.58-0.96 [facility] Comment on above: Order Comment: Speci men Type: BLOOD SPECIMENOrdering Facility: [facility] [place] Address: [address] [place] [address] Performed By: #### 2 4321-2 ####[facility] [id number] [place] [address] [place] eGFRcr SerPlBld CKD-EPI 2020 42 mL/min/1.73m??? Low >=60 [facility] Comment on above: Order Comment: Speci men Type: BLOOD SPECIMENOrdering Facility: [facility] [place] Address: [address] [place] [address] Result Comment: Hyun mated Glomerular Filtration Rate [...] actual GFR. Performed By: #### 2 4321-2 ####[facility] [id number] [place] [address] [place] Glucose [Mass/Vol] 104 mg/dL High 74-99 [facility] Comment on above: Order Comment: Speci men Type: BLOOD SPECIMENOrdering Facility: [facility] [place] Address: [address] [place] [address], [place] [address] Result Comment: The [employer] Association (ADA) provides guidance for cutoff [...] Standards of Medical Care in Diabetes 2016, [employer] Association. Diabetes Care. 2016.39(Suppl 1). Performed By: #### 2 4321-2 ####[facility] [id number] [place] [address] [place] Potassium [Moles/Vol] 4.2 mmol/L Normal 3.7-5.1 [facility] Comment on above: Order Comment: Speci men Type: BLOOD SPECIMENOrdering Facility: [facility] Address: [address] [place] [address] Performed By: #### 2 4321-2 ####[facility] [id number] [place] [address] [place] Sodium [Moles/Vol] 136 mmol/L Normal 136-144 [facility] Comment on above: Order Comment: Speci men Type: BLOOD SPECIMENOrdering Facility: [facility] Address: [address] [place] [address] [place] [address] Performed By: #### 2 4321-2 ####[facility] [id number] [place] [address] [place] Urea nitrogen [Mass/Vol] 26 mg/dL High 7-21 [facility] Comment on above: Order Comment: Speci men Type: BLOOD SPECIMENOrdering Facility: [facility] Address: [address] [place] [address], [address], [place] [address] Performed By: #### 2 4321-2 ####[facility] [id number] [place] [address] [place] MR/PAT.Kip 12-19-2024 MR/PAT.[facility] Medical Records Department [address] [place] [address] PAT - Anesthesia 12/19/24 1652 MR#: [id number] Acct: [id number] Name: EREN MERCHANT Rep #: [id number] : 1960 64 From: Johnathan Ennis MD PCP: Dr. Gonzalo Day MD Status:PRE [facility] Y Race: C Location: EN Pre-Assessment Diagnosis/Proposed Procedure Planned Operative Procedure(s): COLONOSCOPY Anesthesia History Anesthesia History - jacquard card cutter: Anesthesia History - jacquard card cutter Hx Hospitalization Yes: 03/2024- 7 DAYS, [facility]. [...] take am of surgery PONV PONV - jacquard card cutter: PONV - jacquard card cutter Female Yes 12/19/24 12:42 HX of Motion [...] 06/06/24 14:36 Respiratory Assessment Respiratory Assessment - jacquard card cutter: Respiratory Tract Infection Hx - jacquard card cutter Hx Respiratory Tract Infection No 12/19/24 12:42 STOP Sleep Apnea STOP Sleep Apnea - jacquard card cutter: STOP Sleep Apnea - jacquard card cutter Hx Hypertension No 12/19/24 12:42 Hx Sleep [...] Tobacco Use History Tobacco Use History - jacquard card cutter: Tobacco Use History - jacquard card cutter Tobacco Use Smoking Status Never smoker 12/19/24 12:42 Hx Tobacco Use No 12/19/24 12:42 Years Smoking Packs Smoked per Day Smoking Cessation Date was within the last 15 years Hx Smoking Cessation Date Hx Smoking Cessation Counseling Hematologic Medial History Hematologic Hx - jacquard card cutter: 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 Normal [facility] CNOVon 12-13-2024 CNOV Normal [facility] CNOVon 12-06-2024 CNOV Normal [facility] CNOVon 11-29-2024 CNOV Normal [facility] CNOVon 11-16-2024 CNOV Normal [facility] CNPNon 11-14-2024 CNPN Normal [facility] Gastroenterology Visit Repor ton 11-08-2024 Gastroenterology Visit Report [facility] Gastroenterology [address] [place] [address] OFFICE VISIT Date of Service: 11/08/24 MR#: [id number] Acct: [id number] Name: EREN MERCHANT Rep #: [id number] : 1960 Provider: KAUSHAL Alas Age/Sex: 64/F Location: [facility] [place] Status: Signed Intake Vital Signs 06/06/24 14:36 [...] mcg (1,000 unit) tablet (Vitamin D3) geriatric eibgnzuv-rdgv-hyyk 1 ea PO DAILY 06/28/18 11/08/24 Hi [...] doesn't seem to be helping with constipation. [facility] Medical History History of steroid therapy Wears [...] recommendation for f/u in 8 weeks. OV 11.25 Pt feeling better on anti fungal medications [...] bowel resection (more content not included)... Normal [facility] CNOVon 10-31-2024 CNOV Normal [facility] CNTHERAPYon 10-31-2024 CNTHERAPY Normal [facility] CNOVon 10-26-2024 CNOV Normal [facility] LUNG DIFFUSION CAPACITY (LAN O)on 10-26-2024 LUNG DIFFUSION CAPACITY (DLCO) Normal [facility] LUNG VOLUMESon 10-26-2024 LUNG VOLUMES Normal [facility] SPIROMETRY BASELINE ONLYon 0 10-26-2024 SPIROMETRY BASELINE ONLY Normal [facility] CNTHERAPYon 10-17-2024 CNTHERAPY Normal [facility] THERAPY NTon 10-17-2024 THERAPY NT Normal [facility] Gastroenterology Visit Repor ton 10-11-2024 Gastroenterology Visit Report [facility] Gastroenterology [address] [place] [address] OFFICE VISIT Date of Service: 10/11/24 MR#: [id number] Acct: [id number] Name: EREN MERCHANT Rep #: [id number] : 1960 Provider: KAUSHAL Alas Age/Sex: 64/F Location: [place] [facility] [place] Status: Signed Intake Vital Signs 06/06/24 14:36 [...] mcg (1,000 unit) tablet (Vitamin D3) geriatric kydysjxe-zzjv-gxfq 1 ea PO DAILY 06/28/18 10/11/24 Hi story (Complete Senior tablet) mycophenolate mofetil 500 mg 1,000 mg PO DAILY 10/19/24 05/28/2 5 History tablet (CellCept) levothyroxine 100 mcg [...] second portion of the duodenum. Last OV 07.07.24 Pt doing well today. Reviewed EGD results Swallowing improved after treatment with fluconazole. OV 10.11.24 Pt having burning in her [...] Cardio Cardi (more content not included)... Normal [facility] CNTHERAPYon 10-10-2024 CNTHERAPY Normal [facility] THERAPY NTon 10-10-2024 THERAPY NT Normal [facility] CNTHERAPYon 10-02-2024 CNTHERAPY Normal [facility] 25(OH)D3 SerPl-ncon 2024 25-hydroxyvitamin D3 [Mass/Vol] 63.0 ng/mL Normal 31.0-80.0 [facility] Comment on above: Order Comment: Speci men Type: BLOOD SPECIMENOrdering Facility: [facility] [address] Address: [place] [address] Result Comment: Clas sification of 25 [place] Vitamin D status:Deficiency/Insufficiency: < or = 30 ng/ml.Sufficiency/Optimal Levels: 31-80 ng/mLToxicity: > 100 ng/mL.Test performed by chemiluminescent immunoassay. Performed By: #### 1 989-3 ####[facility] LABCLIA [id number] [place] [id number] [place] [facility] [id number] 09-28-2024 [id number] Normal [facility] ALBUMIN/CREATININE RATIO, UR INEon 09-28-2024 Albumin DL <= 20 mg/L (U) [Mass/Vol] 386.0 mg/L Normal [facility] Comment on above: Order Comment: Speci men Type: URINE SPECIMENOrdering Facility: [facility] Address: [place] [address] Performed By: #### U ACR, 2890-2 ####[facility] LABIA [id number] [address] Albumin/Creatinine (U) [Mass ratio] 161 mg/g High <30 [facility] Comment on above: Order Comment: Speci men Type: URINE SPECIMENOrdering Facility: [facility] Address: [place] [address] Result Comment: Adul t Male and Female Nephrotic Criteria:<30 mg/g is considered normal to mildly urhbwaamd30-514 mg/g is considered moderately increased>300 mg/g is considered severely increasedKDIGO. (2013). KDIGO 2012 Clinical Practice Guideline for the Evaluation and Management of Chronic Kidney Disease. Official Journal of the International Society of Nephrology, 3(1), 1-150. Performed By: #### U ACR, 2890-2 ####[facility] LABIA [id number] [place] [address] [place] CNTHERAPYon 09-28-2024 CNTHERAPY Normal [facility] Magnesium SerPl-mCncon 09-28 Magnesium [Mass/Vol] 2.1 mg/dL Normal 1.7-2.3 [facility] Comment on above: Order Comment: Speci men Type: BLOOD SPECIMENOrdering Facility: [facility] Address: [place] [address] Performed By: #### 2 731-8, 00448-3, 48672-4 ####[facility] LABCLIA [id number] [address] [address] [place] PTH-Intact SerPl-mCncon - Parathyrin.intact [Mass/Vol] 33 pg/mL Normal 15-65 [facility] Comment on above: Order Comment: Speci men Type: BLOOD SPECIMENOrdering Facility: [facility] Address: [place] [address] Performed By: #### 2 731-8, 17617-1, 87826-1 ####[facility] LABCLIA [id number] [address] [address] [place] Prot/Creat Uron 09-28-2024 Creatinine (U) [Mass/Vol] 239.9 mg/dL Normal 20.0-300.0 [facility] Comment on above: Order Comment: Speci men Type: URINE SPECIMENOrdering Facility: [facility] Address: [place] [address] Performed By: #### U ACR, 2890-2 ####[facility] LABIA [id number] [address] [address] [place] Protein/Creatinine (U) [Mass ratio] 0.67 mg/mg High <0.15 [facility] Comment on above: Order Comment: Speci men Type: URINE SPECIMENOrdering Facility: [facility] Address: [place] [address] Result Comment: Adul t Proteinuria Categories:<0.15 mg/mg is considered normal to mildly increased0.15 - 0.50 mg/mg is considered moderately increased>0.50 mg/mg is considered severely increasedKDIGO. (2013). KDIGO 2012 Clinical Practice Guideline for the Evaluation and Management of Chronic Kidney Disease. Official Journal of the International Society of Nephrology, 3(1), 1-150. Performed By: #### U ACR, 2890-2 ####[facility] LABCLIA [id number] [facility]ENTERK [address] [place] [address] [place] Protein/Creatinine (U) [Mass ratio]on 09-28-2024 Protein (U) [Mass/Vol] 161 mg/dL High 0-20 [facility] Comment on above: Order Comment: Speci men Type: URINE SPECIMENOrdering Facility: GISELLA Tucker Address: [place] [address] Performed By: #### U ACR, 2890-2 ####[facility] LABCLIA [id number] [facility] [address] [place] [address] [place] Renal function 2000 panelon 09-28-2024 Albumin [Mass/Vol] 4.1 g/dL Normal 3.9-4.9 [facility] Comment on above: Order Comment: Speci men Type: BLOOD SPECIMENOrdering Facility: GISELLA Tucker Address: [place] [address] Performed By: #### 2 731-8, 36862-9, ####[facility] LABIA [id number] [address] [address] [place] Anion gap [Moles/Vol] 12 mmol/L Normal 8-15 [facility] Comment on above: Order Comment: Speci men Type: BLOOD SPECIMENOrdering Facility: GISELLA Tucker Address: [place] [address] Performed By: #### 2 731-8, 55410-8, ####[facility] LABIA [id number] [address] [place] [address] [place] Calcium [Mass/Vol] 10.0 mg/dL Normal 8.5-10.2 [facility] Comment on above: Order Comment: Speci men Type: BLOOD SPECIMENOrdering Facility: [facility]um[facility] BobbyDouglas Address: [place] [address] Performed By: #### 2 731-8, 54530-7, ####[facility] LABCLIA [id number] [address] [address] [place] Chloride [Moles/Vol] 101 mmol/L Normal 98-107 [facility] Comment on above: Order Comment: Speci men Type: BLOOD SPECIMENOrdering Facility: [facility] Address: [place] [address] Performed By: #### 2 731-8, 10889-2, ####[facility] LABIA [id number] [address] [address] [place] CO2 [Moles/Vol] 24 mmol/L Normal 22-30 [facility] Comment on above: Order Comment: Speci men Type: BLOOD SPECIMENOrdering Facility: [facility] Address: [place] [address] Performed By: #### 2 731-8, 01596-5, ####[facility] LABIA [id number] [address] [address] [place] Creatinine [Mass/Vol] 1.50 mg/dL High 0.58-0.96 [facility] Comment on above: Order Comment: Speci men Type: BLOOD SPECIMENOrdering Facility: [facility] Address: [place] [address] Performed By: #### 2 731-8, 55605-0, ####[facility] [id number] [address] [address] [place] Creatinine and Glomerular filtration rate.predicted panel (S/P/Bld) 38 mL/min/1.73m??? Low >=60 [facility] Comment on above: Order Comment: Speci men Type: BLOOD SPECIMENOrdering Facility: [facility] Address: [place] [address] Result Comment: Hyun mated Glomerular Filtration Rate [...] actual GFR. Performed By: #### 2 731-8, 91579-4, ####[facility] LABCLIA [id number] [address] [address] [place] Glucose [Mass/Vol] 106 mg/dL High 74-99 [facility] Comment on above: Order Comment: Melinda diamond Type: BLOOD SPECIMENOrdering Facility: [facility] Tucker Address: [place] [address] Result Comment: The Indian Diabetes Association (ADA) provides guidance for cutoff [...] Standards of Medical Care in Diabetes 2016, Indian Diabetes Association. Diabetes Care. 2016.39(Suppl 1). Performed By: #### 2 731-8, 69746-5, ####[facility] LABCLIA [id number] [facility] SYSTEMSAzima [address] [address] [place] Phosphate [Mass/Vol] 3.2 mg/dL Normal 2.7-4.8 [facility] Comment on above: Order Comment: Melinda diamond Type: BLOOD SPECIMENOrdering Facility: GISELLA Tucker Address: [place] [address] Performed By: #### 2 731-8, 97047-9, ####[facility] LABCLIA [id number] [address] [address] [place] Potassium [Moles/Vol] 4.3 mmol/L Normal 3.7-5.1 [facility] Comment on above: Order Comment: Speci men Type: BLOOD SPECIMENOrdering Facility: GISELLA Tucker Address: [place] [address] Performed By: #### 2 731-8, 13181-3, 32980-3 ####[facility] LABCLIA [id number] [address] [address] [place] Sodium [Moles/Vol] 137 mmol/L Normal 136-144 [facility] Comment on above: Order Comment: Speci men Type: BLOOD SPECIMENOrdering Facility: [facility] Tucker Address: [place] [address] Performed By: #### 2 731-8, 66106-6, 32764-2 ####[facility] LABCLIA [id number] [place] [address] [place] Urea nitrogen [Mass/Vol] 24 mg/dL High 7-21 [facility] Comment on above: Order Comment: Speci men Type: BLOOD SPECIMENOrdering Facility: [facility] Address: [place] [address] Performed By: #### 2 731-8, 52988-1, 98579-2 ####[facility] LABCLIA [id number] [address] [address] [place] Comprehensive metabolic 2000 panelon 09-23-2024 Albumin [Mass/Vol] 3.9 g/dL Normal 3.9-4.9 [facility] Comment on above: Order Comment: Speci men Type: BLOOD SPECIMENOrdering Facility: [facility] Address: [address] [place] [address] Performed By: #### 2 4323-8 ####[facility] LABCLIA [id number] [address] [place] [address] [place] ALP [Catalytic activity/Vol] 118 U/L Normal 34-123 [facility] Comment on above: Order Comment: Speci men Type: BLOOD SPECIMENOrdering Facility: [facility] Address: [facility] [place] [id number] Performed By: #### 2 4323-8 ####[facility] LABCLIA [id number] [address] [place] [address] [place] ALT [Catalytic activity/Vol] 12 U/L Normal 7-38 [facility] Comment on above: Order Comment: Speci men Type: BLOOD SPECIMENOrdering Facility: [facility] Address: [address] [place] [address] Performed By: #### 2 4323-8 ####[facility] LABCLIA [id number] [address] [place] [address] [place] Anion gap [Moles/Vol] 14 mmol/L Normal 8-15 [facility] Comment on above: Order Comment: Speci men Type: BLOOD SPECIMENOrdering Facility: [facility] Address: [address] [place] [address] Performed By: #### 2 4323-8 ####[facility] LABCLIA [id number] [place] [address] [place] AST [Catalytic activity/Vol] 21 U/L Normal 13-35 [facility] Comment on above: Order Comment: Speci men Type: BLOOD SPECIMENOrdering Facility: [facility] Address: [address] [place], [place] [address] Performed By: #### 2 4323-8 ####[facility] LABCLIA [id number] [address] [address] [place] Bilirubin [Mass/Vol] 0.4 mg/dL Normal 0.2-1.3 [facility] Comment on above: Order Comment: Speci men Type: BLOOD SPECIMENOrdering Facility: [facility] Address: [address] [place], [place] [address] Performed By: #### 2 4323-8 ####[facility] LABCLIA [id number] [address] [address] [place] Calcium [Mass/Vol] 10.5 mg/dL High 8.5-10.2 [facility] Comment on above: Order Comment: Speci men Type: BLOOD SPECIMENOrdering Facility: [facility] Address: [address] [place] [address] Performed By: #### 2 4323-8 ####[facility] LABCLIA [id number] [place] [address] [place] Chloride [Moles/Vol] 101 mmol/L Normal 98-107 [facility] Comment on above: Order Comment: Speci men Type: BLOOD SPECIMENOrdering Facility: [facility] Address: [address] [place] [address] Performed By: #### 2 4323-8 ####[facility] LABCLIA [id number] [place] [address] [place] CO2 [Moles/Vol] 21 mmol/L Low 22-30 [facility] Comment on above: Order Comment: Speci men Type: BLOOD SPECIMENOrdering Facility: [facility] Address: [address] [place] [address] Performed By: #### 2 4323-8 ####[facility] LABCLIA [id number] [place] [address] [place] Creatinine [Mass/Vol] 1.42 mg/dL High 0.58-0.96 [facility] Comment on above: Order Comment: Speci men Type: BLOOD SPECIMENOrdering Facility: [facility] Address: [address] [place], [place] [address] Performed By: #### 2 4323-8 ####[facility] LABCLIA [id number] [place] [address] [place] Creatinine and Glomerular filtration rate.predicted panel (S/P/Bld) 41 mL/min/1.73m??? Low >=60 [facility] Comment on above: Order Comment: Melinda diamond Type: BLOOD SPECIMENOrdering Facility: [facility] Address: [address] [place] [address] Result Comment: Hyun mated Glomerular Filtration Rate [...] actual GFR. Performed By: #### 2 4323-8 ####[facility] [id number] [place] [address] [place] Glucose [Mass/Vol] 92 mg/dL Normal 74-99 [facility] Comment on above: Order Comment: Melinda diamond Type: BLOOD SPECIMENOrdering Facility: [facility] Address: [address] [place] [address] Result Comment: The Indian Diabetes Association (ADA) provides guidance for cutoff [...] Standards of Medical Care in Diabetes 2016, Indian Diabetes Association. Diabetes Care. 2016.39(Suppl 1). Performed By: #### 2 4323-8 ####[facility] [id number] [place] [address] [place] Potassium [Moles/Vol] 4.4 mmol/L Normal 3.7-5.1 [facility] Comment on above: Order Comment: Melinda diamond Type: BLOOD SPECIMENOrdering Facility: [facility] Address: [address] [place] [address] Performed By: #### 2 4323-8 ####[facility] LABCLIA [id number] [place] [address] [place] Protein [Mass/Vol] 7.5 g/dL Normal 6.3-8.0 [facility] Comment on above: Order Comment: Speci men Type: BLOOD SPECIMENOrdering Facility: [facility] Address: [address] [place] [address] Performed By: #### 2 4323-8 ####[facility] LABCLIA [id number] [place] [address] [place] Sodium [Moles/Vol] 136 mmol/L Normal 136-144 [facility] Comment on above: Order Comment: Speci men Type: BLOOD SPECIMENOrdering Facility: [facility] Address: [address] [place] [address] Performed By: #### 2 4323-8 ####[facility] LABCLIA [id number] [place] [address] [place] Urea nitrogen [Mass/Vol] 25 mg/dL High 7-21 [facility] Comment on above: Order Comment: Speci men Type: BLOOD SPECIMENOrdering Facility: [facility] Address: [address] [place] [address] Performed By: #### 2 4323-8 ####[facility] LABIA [id number] [place] [address] [place] CNOVon 09-22-2024 CNOV Normal [facility] CNOVon 09-11-2024 CNOV Normal [facility] No Panel Informationon 09-11 Radiology Study observation (narrative) [facility] XR FACIAL BONES 3V AP/LAT/WA TERSon 09-11-2024 XR FACIAL BONES 3V AP/LAT/DE JESUS Normal [facility] XR Facial bones 3 Viewson IMPRESSION: Questionable nondisplaced fracture of the left mandibular ramus versus artifact. Correlate with physical examination for possible point tenderness in this region. If clinically indicated, further evaluation with CT may be made. [employer] Sales Representative: JUAN Transcribe Date/Time: Sep 11 2024 1:34P Dictated by : JIMENA CHI MD This examination was interpreted and the report reviewed and electronically signed by: JIMENA CHI MD on Sep 11 2024 1:37PM EST DIVISION OF RADIOLOGY * * *Final Report* [...] sinuses grossly clear. DIVISION OF RADIOLOGY Provider, [facility] - 09/11/2024 * * *Final Report* [...] further evaluation with CT may be made. [employer] Services Sales Representative: JUAN Transcribe Date/Time: Sep 11 2024 1:34P Dictated by : JIMENA CHI MD This examination was interpreted and the report reviewed and electronically signed by: JIMENA CHI MD on Sep 11 2024 1:37PM EST [facility] XR HIP 3V PELV+ AP/LAT RTon 09-11-2024 XR HIP 3V PELV+ AP/LAT RT Normal [facility] XR LUMBAR 3V AP/LAT/L5-S1on 09-11-2024 XR LUMBAR 3V AP/LAT/L5-S1 Normal [facility] XR Lumbar spine 3 Viewson IMPRESSION: Age indeterminate mild superior endplate compression deformity of L2 though new when compared with 2022 CT abdomen pelvis. [employer] Services Sales Representative: PSCKeysha Transcribe Date/Time: Sep 11 2024 1:30P Dictated by : JIMENA CHI MD This examination was interpreted and the report reviewed and electronically signed by: JIMENA CHI MD on Sep 11 2024 1:33PM [facility] DIVISION OF RADIOLOGY * * *Final [...] deformity of T11. DIVISION OF RADIOLOGY Provider, [facility] - 09/11/2024 * * *Final Report* [...] when compared with 2022 CT abdomen pelvis. Shipping Services Sales Representative: [facility] CENTERKeysha Transcribe Date/Time: Sep 11 2024 1:30P Dictated by : JIMENA CHI MD This examination was interpreted and the report reviewed and electronically signed by: JIMENA CHI MD on Sep 11 2024 1:33PM EST [facility] XR Pelvis and Hip - right AP and Lateral frogon 09-11-2024 IMPRESSION: No radiographic evidence of acute osseous injury. [employer] Sales Representative: JUAN Transcribe Date/Time: Sep 11 2024 1:28P Dictated by : JIMENA CHI MD This examination was interpreted and the report reviewed and electronically signed by: JIMENA CHI MD on Sep 11 2024 1:30PM [facility] DIVISION OF RADIOLOGY * * *Final [...] the left pelvis. DIVISION OF RADIOLOGY Provider, [facility] - 09/11/2024 * * *Final Report* [...] No radiographic evidence of acute osseous injury. [employer] Sales Representative: JUAN Transcribe Date/Time: Sep 11 2024 1:28P Dictated by : JIMENA CHI MD This examination was interpreted and the report reviewed and electronically signed by: JIMENA CHI MD on Sep 11 2024 1:30PM EST [facility] XR Pelvis and Hip - right AP and Lateral frogOrdered By: Ccf Provider on 09-11-2024 [facility] CNOVon 08-31-2024 CNOV Normal [facility] CNOV Normal [facility] TSH SerPl-aCncon 08-31-2024 TSH Qn 1.210 m[IU]/L Normal 0.270-4.20 0 [facility] Comment on above: Order Comment: Speci men Type: BLOOD SPECIMENOrdering Facility: [facility] Address: [address] [place] [address] Performed By: #### 3 016-3 ####[facility] LABCLIA [id number] [place] [address] [place] CHYNA SCREENING W TOMOon 08-21 CHYNA SCREENING W JENN [facility] CNPNon 08-18-2024 CNPN Normal [facility] Bacteria Ur Culton Bacteria identified Cx Nom (U) Normal [facility] Comment on above: Performed By: #### 6 30-4 ####[facility] LABCLIA [id number] [place] [address] [place] Urinalysis complete panel (U )on 08-17-2024 Bacteria LM.HPF (Urine sed) [#/Area] Negative Normal Negative [facility] Comment on above: Order Comment: Speci men Type: URINE SPECIMENOrdering Facility: [facility] Address: [address] [place] [address] Performed By: #### 2 4356-8 ####[facility] LABCLIA [id number] [facility] [address] [place] [address] [place] Bilirubin Ql (U) Negative Normal Negative [facility] Comment on above: Order Comment: Speci men Type: URINE SPECIMENOrdering Facility: [facility] Address: [address] [place], [place] [address] Performed By: #### 2 4356-8 ####[facility] LABCLIA [id number] [address] [place] [address] [place] Clarity (Unsp spec) Cloudy Abnormal Clear [facility] Comment on above: Order Comment: Speci men Type: URINE SPECIMENOrdering Facility: [facility] Address: [address] [place] [address] Performed By: #### 2 4356-8 ####[facility] LABCLIA [id number] [address], [facility] [place] [facility] Color (U) Yellow Normal Yellow [facility] Comment on above: Order Comment: Speci men Type: URINE SPECIMENOrdering Facility: [facility] Address: [address] [place] [address] Performed By: #### 2 4356-8 ####[facility] LABCLIA [id number] [address], [facility] [place] Epithelial cells LM.HPF (Urine sed) [#/Area] None Seen Normal [facility] Comment on above: Order Comment: Speci men Type: URINE SPECIMENOrdering Facility: [facility] Address: [address] [id number] Performed By: #### 2 4356-8 ####[facility] LABCLIA [id number] [address], [facility] [place] Glucose Test strip (U) [Mass/Vol] Negative Normal Negative [facility] Comment on above: Order Comment: Speci men Type: URINE SPECIMENOrdering Facility: [facility] Address: [address] [place] [address] Performed By: #### 2 4356-8 ####[facility] LABCLIA [id number] [place] [address] [place] Hemoglobin Ql (U) 3+ Abnormal Negative [facility] Comment on above: Order Comment: Speci men Type: URINE SPECIMENOrdering Facility: [facility] Address: [address] [place] [address] Performed By: #### 2 4356-8 ####[facility] LABCLIA [id number] [place] [address] [place] Hyaline casts (Urine sed) [#/Area] 1-3 /LPF Abnormal 0 /LPF [facility] Comment on above: Order Comment: Speci men Type: URINE SPECIMENOrdering Facility: [facility] Address: [address] [place] [address] Performed By: #### 2 4356-8 ####[facility] LABCLIA [id number] [place] [address] [place] Ketones Ql (U) Negative Normal Negative [facility] Comment on above: Order Comment: Speci men Type: URINE SPECIMENOrdering Facility: [facility] Address: [address] [place] [address] Performed By: #### 2 4356-8 ####[facility] LABCLIA [id number] [place] [address] [place] Leukocyte esterase Test strip Ql (U) 2+ Abnormal Negative [facility] Comment on above: Order Comment: Speci men Type: URINE SPECIMENOrdering Facility: [facility] Address: [address] [place] [address] Performed By: #### 2 4356-8 ####[facility] LABCLIA [id number] [place] [address] [place] Nitrite Ql (U) Negative Normal Negative [facility] Comment on above: Order Comment: Speci men Type: URINE SPECIMENOrdering Facility: [facility] Address: [address] [place] [address] Performed By: #### 2 4356-8 ####[facility] LABCLIA [id number] [place] [address] [place] pH (U) 6.0 [pH] Normal <8.5 [facility] Comment on above: Order Comment: Speci men Type: URINE SPECIMENOrdering Facility: [facility] Address: [address] [place] [address] Performed By: #### 2 4356-8 ####[facility] LABCLIA [id number] [place] [address] [place] Protein (U) [Mass/Vol] 1+ Abnormal Negative Cl [facility] Comment on above: Order Comment: Speci men Type: URINE SPECIMENOrdering Facility: [facility] Address: [address] [place] [address] Performed By: #### 2 4356-8 ####[facility] LABCLIA [id number] [place] [address] [place] RBC LM.HPF (Urine sed) [#/Area] /[HPF] Abnormal 0-2 /HPF [facility] Comment on above: Order Comment: Speci men Type: URINE SPECIMENOrdering Facility: [facility] Address: [address] [place] [address] Performed By: #### 2 4356-8 ####[facility] LABCLIA [id number] [place] [address] [place] Specific gravity (U) [Rel density] 1.019 Normal 1.005-1.03 0 [facility] Comment on above: Order Comment: Speci men Type: URINE SPECIMENOrdering Facility: [facility] Address: [address] [place] [address] Performed By: #### 2 4356-8 ####[facility] LABCLIA [id number] [place] [address] [place] Urobilinogen Ql (U) 0.2 EU/dL Normal 0.2-1.0 EU/dL [facility] Comment on above: Order Comment: Speci men Type: URINE SPECIMENOrdering Facility: [facility] Address: [address] [place] [address] Performed By: #### 2 4356-8 ####[facility] LABCLIA [id number] [place] [address] [place] WBC LM.HPF (Urine sed) [#/Area] /[HPF] Abnormal 0-5 /HPF [facility] Comment on above: Order Comment: Speci men Type: URINE SPECIMENOrdering Facility: [facility] Address: [address] [place] [address] Performed By: #### 2 4356-8 ####[facility] LABIA [id number] [place] [address] [place] US KIDNEY/BLADDERon 08-15-19 25 US KIDNEY/BLADDER Normal [facility] Bacteria Ur Culton 5 Bacteria identified Cx Nom (U) Abnormal [facility] Comment on above: Performed By: #### 6 30-4 ####[facility] LABIA [id number] [place] [address] [place] CNOVon 08-09-2024 CNOV Normal [facility] UA DIP, URINE (POC)on 2024 BILIRUBIN UA (POCT) Negative Negative [facility] CLARITY UA (POCT) Clear [facility] COLOR UA (POCT) Yellow [facility] GLUCOSE UA (POCT) Negative Negative mg/dL [facility] Hemoglobin Ql (U) Large Abnormal Negative [facility] Interpretation and review of laboratory results Abnormal [facility] KETONE UA (POCT) Negative Negative mg/dL [facility] LEUKOCYTES UA (POCT) Large Abnormal Negative [facility] NITRITE UA (POCT) Positive Abnormal Negative [facility] PH UA (POCT) 6 4.5 - 8.0 [facility] Protein Ql (U) 100 mg/dL Abnormal Negative [facility] SPECIFIC GRAVITY UA (POCT) 1.025 1.005 - 1.030 [facility] UROBILINOGEN UA (POCT) 0.2 Sallie l E.U./dL [facility] Location:[facility], [address] [place], [address] [facility] POINT OF CARE [facility] 08-08-2024 CNPN Normal [facility] 08-07-2024 CNPN Telephone (AKURFL) EREN MERCHANT ([id number]) 1960 F Date Time Provider Department 08/07/24 [...] Smear of Vagina and Vagin* 02/06/2010 Dyspareunia [[id number]] 05/03/2006 02/06/2010 Fx Sacrum/Coccyx-Closed [S32.10XA, S32.2XXA] 05/31/2007 [...] Status:Closed by KIRK SANTIAGO on 08/07/24 Normal [facility] CNOVon 08-03-2024 CNOV Normal [facility] CBC W Auto Differential pane l (Bld)on 07-31-2024 Basophils (Bld) [#/Vol] 10*3/uL Normal <0.11 [facility] Comment on above: Order Comment: Speci men Type: BLOOD SPECIMENOrdering Facility: [facility] Address: [address] [place] [address] Performed By: #### 4 537-7, 06375-0 ####[facility] LABCLIA [id number] [place] [address] [place] Basophils/100 WBC (Bld) 0.2 % Normal [facility] Comment on above: Order Comment: Speci men Type: BLOOD SPECIMENOrdering Facility: [facility] Address: [address] [place] [address] Performed By: #### 4 537-7, 10363-5 ####[facility] LABCLIA [id number] [place] [address] [place] Differential cell count method Nom (Bld) Auto Normal [facility] Comment on above: Order Comment: Speci men Type: BLOOD SPECIMENOrdering Facility: [facility] Address: [address] [place] [address] Performed By: #### 4 537-7, 91235-2 ####[facility] LABCLIA [id number] [place] [address] [place] Eosinophils (Bld) [#/Vol] 0.03 10*3/uL Normal <0.46 [facility] Comment on above: Order Comment: Speci men Type: BLOOD SPECIMENOrdering Facility: [facility] Address: [address] [place] [address] Performed By: #### 4 537-7, 22116-1 ####[facility] LABCLIA [id number] [place] [id number] [place] Eosinophils/100 WBC (Bld) 0.3 % Normal [facility] Comment on above: Order Comment: Speci men Type: BLOOD SPECIMENOrdering Facility: [facility] Address: [address] [place] [address] Performed By: #### 4 537-7, 55676-9 ####[facility] LABCLIA [id number] [place] [address] [place] Erythrocyte distribution width (RBC) [Ratio] 14.4 % Normal 11.5-15.0 [facility] Comment on above: Order Comment: Speci men Type: BLOOD SPECIMENOrdering Facility: [facility] Address: [address] [place] [address] Performed By: #### 4 537-7, 33191-0 ####[facility] LABCLIA [id number] [place] [address] [place] Hematocrit (Bld) [Volume fraction] 38.9 % Normal 36.0-46.0 [facility] Comment on above: Order Comment: Speci men Type: BLOOD SPECIMENOrdering Facility: [facility] Address: [address] [place] [address] Performed By: #### 4 537-7, 73534-5 ####[facility] LABIA [id number] [place] [address] [place] Hemoglobin (Bld) [Mass/Vol] 12.2 g/dL Normal 11.5-15.5 [facility] Comment on above: Order Comment: Speci men Type: BLOOD SPECIMENOrdering Facility: [facility] Address: [address] [place] [address] Performed By: #### 4 537-7, 70715-4 ####[facility] LABCLIA [id number] [place] [address] [place] Immature granulocytes (Bld) [#/Vol] 0.03 10*3/uL Normal <0.10 [facility] Comment on above: Order Comment: Speci men Type: BLOOD SPECIMENOrdering Facility: [facility] Address: [address] [place] [address] Performed By: #### 4 537-7, 49393-2 ####[facility] LABCLIA [id number] [place] [address] [place] Immature granulocytes/100 WBC (Bld) 0.3 % Normal [facility] Comment on above: Order Comment: Speci men Type: BLOOD SPECIMENOrdering Facility: [facility] Address: [address] [place] [address] Performed By: #### 4 537-7, 08057-7 ####[facility] LABCLIA [id number] [place] [address] [place] Lymphocytes (Bld) [#/Vol] 2.51 10*3/uL Normal 1.00-4.00 [facility] Comment on above: Order Comment: Speci men Type: BLOOD SPECIMENOrdering Facility: [facility] Address: [address] [place] [address] Performed By: #### 4 537-7, 68487-1 ####[facility] LABCLIA [id number] [place] [address] [place] Lymphocytes/100 WBC (Bld) 23.9 % Normal [facility] Comment on above: Order Comment: Speci men Type: BLOOD SPECIMENOrdering Facility: [facility] Address: [address] [place] [address] Performed By: #### 4 537-7, 76625-9 ####[facility] LABCLIA [id number] [place] [id number] [place] MCH (RBC) [Entitic mass] 26.1 pg Normal 26.0-34.0 [facility] Comment on above: Order Comment: Speci men Type: BLOOD SPECIMENOrdering Facility: [facility] Address: [address] [place] [address] Performed By: #### 4 537-7, 65623-5 ####[facility] LABCLIA [id number] [place] [address] [place] MCHC (RBC) [Mass/Vol] 31.4 g/dL Normal 30.5-36.0 [facility] Comment on above: Order Comment: Speci men Type: BLOOD SPECIMENOrdering Facility: [facility] Address: [address] [place] [address] Performed By: #### 4 537-7, 74788-1 ####[facility] LABCLIA [id number] [place] [address] [place] MCV (RBC) [Entitic vol] 83.1 fL Normal 80.0-100.0 [facility] Comment on above: Order Comment: Speci men Type: BLOOD SPECIMENOrdering Facility: [facility] Address: [address] [place] [address] Performed By: #### 4 537-7, 03455-7 ####[facility] LABIA [id number] [place] [address] [place] Monocytes (Bld) [#/Vol] 0.82 10*3/uL Normal <0.87 [facility] Comment on above: Order Comment: Speci men Type: BLOOD SPECIMENOrdering Facility: [facility] Address: [address] [place] [address] Performed By: #### 4 537-7, 43355-5 ####[facility] LABCLIA [id number] [place] [address] [place] Monocytes/100 WBC (Bld) 7.8 % Normal [facility] Comment on above: Order Comment: Speci men Type: BLOOD SPECIMENOrdering Facility: [facility] Address: [address] [place] [address] Performed By: #### 4 537-7, 89826-1 ####[facility] LABCLIA [id number] [place] [address] [place] Neutrophils (Bld) [#/Vol] 7.08 10*3/uL Normal 1.45-7.50 [facility] Comment on above: Order Comment: Speci men Type: BLOOD SPECIMENOrdering Facility: [facility] Address: [address] [place] [address] Performed By: #### 4 537-7, 12182-5 ####[facility] LABIA [id number] [place] [address] [place] Neutrophils/100 WBC (Bld) 67.5 % Normal [facility] Comment on above: Order Comment: Speci men Type: BLOOD SPECIMENOrdering Facility: [facility] Address: [address] [place] [address] Performed By: #### 4 537-7, 21376-5 ####[facility] [id number] [place] [address] [place] Nucleated RBC (Bld) [#/Vol] 10*3/uL Normal <0.01 [facility] Comment on above: Order Comment: Speci men Type: BLOOD SPECIMENOrdering Facility: [facility] Address: [address] [place] [address] Performed By: #### 4 537-7, 16006-4 ####[facility] [id number] [place] [address] [place] Nucleated RBC/100 WBC (Bld) [Ratio] 0.0 /100 WBC Normal [facility] Comment on above: Order Comment: Speci men Type: BLOOD SPECIMENOrdering Facility: [facility] Address: [address] [place] [address] Performed By: #### 4 537-7, 13278-8 ####[facility] LABIA [id number] [place] [address] [place] Platelet mean volume (Bld) [Entitic vol] 10.2 fL Normal 9.0-12.7 [facility] Comment on above: Order Comment: Speci men Type: BLOOD SPECIMENOrdering Facility: [facility] Address: [address] [place] [address] Performed By: #### 4 537-7, 08448-3 ####[facility] LABCLIA [id number] [place] [address] [place] Platelets (Bld) [#/Vol] 332 10*3/uL Normal 150-400 [facility] Comment on above: Order Comment: Speci men Type: BLOOD SPECIMENOrdering Facility: [facility] Address: [address] [place] [address] Performed By: #### 4 537-7, 89374-3 ####[facility] LABCLIA [id number] [place] [address] [place] RBC (Bld) [#/Vol] 4.68 10*6/uL Normal 3.90-5.20 [facility] Comment on above: Order Comment: Speci men Type: BLOOD SPECIMENOrdering Facility: [facility] Address: [address] [place] [address] Performed By: #### 4 537-7, 28456-8 ####[facility] LABIA [id number] [place] [address] [place] WBC (Bld) [#/Vol] 10.49 10*3/uL Normal 3.70-11.00 [facility] Comment on above: Order Comment: Speci men Type: BLOOD SPECIMENOrdering Facility: [facility] Address: [address] [place] [address] Performed By: #### 4 537-7, 98889-7 ####[facility] LABCLIA [id number] [address] [address] [place] CK SerPl-cCncon 07-31-2024 CK [Catalytic activity/Vol] 70 U/L Normal 42-196 [facility] Comment on above: Order Comment: Speci men Type: BLOOD SPECIMENOrdering Facility: [facility] Address: [address] [place], [place] [address] Performed By: #### 2 157-6, 1987-09 ####[facility] LABCLIA [id number] [address] [address] [place] CNOVon 07-31-2024 CNOV Normal [facility] CRP SerPl-mCncon 07-31-2024 CRP [Mass/Vol] mg/L Normal <0.9 [facility] Comment on above: Order Comment: Speci men Type: BLOOD SPECIMENOrdering Facility: [facility] Address: [address] [place] [address] Performed By: #### 2 157-6, 1987-09 ####[facility] LABCLIA [id number] [place] [id number] [place] ESR Westergren method (Bld) [Velocity]on 07-31-2024 ESR (Bld) [Velocity] 17 mm/h Normal 0-20 [facility] Comment on above: Order Comment: Speci men Type: BLOOD SPECIMENOrdering Facility: [facility] Address: [address] [place], [place] [address] Performed By: #### 4 537-7, 81422-3 ####[facility] LABIA [id number] [place] [id number] [place] Basic metabolic 2000 panelon 07-19-2024 Anion gap [Moles/Vol] 9 mmol/L Normal 8-15 [facility] Comment on above: Order Comment: Speci men Type: BLOOD SPECIMENOrdering Facility: [facility] HOSPITALYumiko [place] Address: [address] [place] [address] A, [place] [address] Performed By: #### 2 4321-2 ####[facility] [id number] [place] [address] [place] Calcium [Mass/Vol] 10.1 mg/dL Normal 8.5-10.2 [facility] Comment on above: Order Comment: Speci men Type: BLOOD SPECIMENOrdering Facility: [facility] [place] Address: [address] [place] [address] Performed By: #### 2 4321-2 ####[facility] RAFAELHIGHLAND DISTRICT HOSPITALJOSE [id number] [place] [address] [place] Chloride [Moles/Vol] 101 mmol/L Normal 98-107 [facility] Comment on above: Order Comment: Speci men Type: BLOOD SPECIMENOrdering Facility: [facility] [place] Address: [address] [place] [address] Performed By: #### 2 4321-2 ####[facility] HOSPITALWMARNILIA [id number] [place] [address] [place] CO2 [Moles/Vol] 24 mmol/L Normal 22-30 [facility] Comment on above: Order Comment: Speci men Type: BLOOD SPECIMENOrdering Facility: [facility] Lara Schultz Address: [address] [place] [address] Performed By: #### 2 4321-2 ####[facility]ITALNCLIA [id number] [place] [address] [place] Creatinine [Mass/Vol] 1.56 mg/dL High 0.58-0.96 [facility] Comment on above: Order Comment: Speci men Type: BLOOD SPECIMENOrdering Facility: [facility] Lara Schultz Address: [address] [place] [address] [place] [address] Performed By: #### 2 4321-2 ####[facility]OSPITALWNCLIA [id number] [place] [address] [place] Creatinine and Glomerular filtration rate.predicted panel (S/P/Bld) 37 mL/min/1.73m??? Low >=60 [facility] Comment on above: Order Comment: Melinda diamond Type: BLOOD SPECIMENOrdering Facility: [facility] [place] Address: [address] [place] [address] A, [place] [address] Result Comment: Hyun mated Glomerular Filtration Rate [...] actual GFR. Performed By: #### 2 4321-2 ####[facility] [id number] [place] [address] [place] Glucose [Mass/Vol] 68 mg/dL Low 74-99 [facility] Comment on above: Order Comment: Melinda diamond Type: BLOOD SPECIMENOrdering Facility: [facility] [place] Address: [address] [place] [address] A, [place] [address] Result Comment: The [employer] Diabetes Association (ADA) provides guidance for cutoff [...] Standards of Medical Care in Diabetes 2016, Indian Diabetes Association. Diabetes Care. 2016.39(Suppl 1). Performed By: #### 2 4321-2 ####[facility] HOSPITALMARNILIYumiko [id number] [place] [address] [place] Potassium [Moles/Vol] 5.0 mmol/L Normal 3.7-5.1 [facility] Comment on above: Order Comment: Speci men Type: BLOOD SPECIMENOrdering Facility: [facility] [place] Address: [address] [place] [address] A, [place] [address] Performed By: #### 2 4321-2 ####[facility] RAFAEL ESTESWEST BROOKLYNKAYLEN [id number] [place] [address] [place] Sodium [Moles/Vol] 134 mmol/L Low 136-144 [facility] Comment on above: Order Comment: Speci men Type: BLOOD SPECIMENOrdering Facility: [facility] Lara Schultz Address: [address] [place] [address] [facility] [address] Performed By: #### 2 4321-2 ####[facility] FRANKLYNGRANT-BLACKFORD MENTAL HEALTHSHADIA [id number] [place] [address] [place] Urea nitrogen [Mass/Vol] 41 mg/dL High 7-21 [facility] Comment on above: Order Comment: Speci men Type: BLOOD SPECIMENOrdering Facility: [facility] Lara Schultz Address: [address] [place] [address] [place] [address] Performed By: #### 2 4321-2 ####[facility] CENTERLIA [id number] [place] [address] [place] CNOVon 07-10-2024 CNOV Normal [facility] Renal function 2000 panelon 07-10-2024 Albumin [Mass/Vol] 4.2 g/dL Normal 3.9-4.9 [facility] Comment on above: Order Comment: Speci men Type: BLOOD SPECIMENOrdering Facility: [facility] [place] Address: [address] [place] [address] A, [place] [address] Performed By: #### 2 4362-6 ####[facility] LABCLIA [id number] [address] [address] [place] Anion gap [Moles/Vol] 10 mmol/L Normal 8-15 [facility] Comment on above: Order Comment: Speci men Type: BLOOD SPECIMENOrdering Facility: [facility] Lara Schultz Address: [address], [address], [place] [address] Performed By: #### 2 4362-6 ####[facility] LABCLIA [id number] [facility] [address] [place] [address] [place] Calcium [Mass/Vol] 9.9 mg/dL Normal 8.5-10.2 [facility] Comment on above: Order Comment: Speci men Type: BLOOD SPECIMENOrdering Facility: [facility] Lara Schultz Address: [address], [address], [place] [address] Performed By: #### 2 4362-6 ####[facility] LABCLIA [id number] [address] [place] [address] [place] Chloride [Moles/Vol] 105 mmol/L Normal 98-107 [facility] Comment on above: Order Comment: Speci men Type: BLOOD SPECIMENOrdering Facility: [facility] Lara Schultz Address: [address], [address], [place] [address] Performed By: #### 2 4362-6 ####[facility] LABCLIA [id number] [address] [place] [address] [place] CO2 [Moles/Vol] 21 mmol/L Low 22-30 [facility] Comment on above: Order Comment: Speci men Type: BLOOD SPECIMENOrdering Facility: [facility] Lara Schultz Address: [address], [address], [place] [address] Performed By: #### 2 4362-6 ####[facility] LABCLIA [id number] [facility] [address] [place] [address] [place] Creatinine [Mass/Vol] 1.87 mg/dL High 0.58-0.96 [facility] Comment on above: Order Comment: Speci men Type: BLOOD SPECIMENOrdering Facility: [facility] Lara Schultz Address: [address], [address], [place] [address] Performed By: #### 2 4362-6 ####[facility] LABIA [id number] [place] [address] [place] Creatinine and Glomerular filtration rate.predicted panel (S/P/Bld) 29 mL/min/1.73m??? Low >=60 [facility] Comment on above: Order Comment: Speci men Type: BLOOD SPECIMENOrdering Facility: [facility] Address: [address] [place] [address] Result Comment: Hyun mated Glomerular Filtration Rate [...] actual GFR. Performed By: #### 2 4362-6 ####[facility] LABIA [id number] [place] [address] [place] Glucose [Mass/Vol] 96 mg/dL Normal 74-99 [facility] Comment on above: Order Comment: Zeni lobo Type: BLOOD SPECIMENOrdering Facility: [facility] Address: [address] [place] [address] Result Comment: The Indian Diabetes Association (ADA) provides guidance for cutoff [...] Standards of Medical Care in Diabetes 2016, Indian Diabetes Association. Diabetes Care. 2016.39(Suppl 1). Performed By: #### 2 4362-6 ####[facility] LABCLIA [id number] [facility] [address] [place] [address] [place] Phosphate [Mass/Vol] 3.8 mg/dL Normal 2.7-4.8 [facility] Comment on above: Order Comment: Speci men Type: BLOOD SPECIMENOrdering Facility: [facility] [place] Address: [address], [address], [place] [address] Performed By: #### 2 4362-6 ####[facility] LABCLIA [id number] [facility] [address] [place] [address] [place] Potassium [Moles/Vol] 4.9 mmol/L Normal 3.7-5.1 [facility] Comment on above: Order Comment: Speci men Type: BLOOD SPECIMENOrdering Facility: [facility] [place] Address: [address] [facility], [address], [place] [address] Performed By: #### 2 4362-6 ####[facility] LABIA [id number] [address] [place] [address] [place] Sodium [Moles/Vol] 136 mmol/L Normal 136-144 [facility] Comment on above: Order Comment: Speci men Type: BLOOD SPECIMENOrdering Facility: [facility] Lara Schultz Address: [address] [facility], [address], [place] [address] Performed By: #### 2 4362-6 ####[facility] LABCLIA [id number] [address] [place] [address] [place] Urea nitrogen [Mass/Vol] 38 mg/dL High 7-21 [facility] Comment on above: Order Comment: Speci men Type: BLOOD SPECIMENOrdering Facility: [facility] Lara Schultz Address: [address], [address], [place] [address] Performed By: #### 2 4362-6 ####[facility] LABCLIA [id number] [address] [place] [address] [place] Urinalysis complete panel (U )on 07-10-2024 BACTERIA UL >9821 High Negative [facility] Comment on above: Order Comment: Speci men Type: URINE SPECIMENOrdering Facility: [facility] [place] Address: [address] [place] [address] [place] [address] Performed By: #### 2 4356-8 ####[facility] LABCLIA [id number] [facility] [address] [place] Bilirubin Ql (U) Negative Normal Negative [facility] Comment on above: Order Comment: Speci men Type: URINE SPECIMENOrdering Facility: [facility] [place] Address: [address] [place] [address] [place] [address] Performed By: #### 2 4356-8 ####[facility] LABCLIA [id number] [facility] [place] [address] [place] Clarity (Unsp spec) Turbid Abnormal [facility] Comment on above: Order Comment: Speci men Type: URINE SPECIMENOrdering Facility: [facility] [place] Address: [address] [place] [address] [place] [address] Performed By: #### 2 4356-8 ####[facility] LABCLIA [id number] [facility] [place] [address] [place] Color (U) Dark Yellow Abnormal Yellow [facility] Comment on above: Order Comment: Speci men Type: URINE SPECIMENOrdering Facility: [facility] [place] Address: [address] [place] [address], [address], [place] [address] Performed By: #### 2 4356-8 ####[facility] LABCLIA [id number] [place] [address] [place] Epithelial cells LM.HPF (Urine sed) [#/Area] None Seen Normal [facility] Comment on above: Order Comment: Speci men Type: URINE SPECIMENOrdering Facility: [facility] [place] Address: [address] [place] [address] [facility] [place] [address] Performed By: #### 2 4356-8 ####[facility] LABCLIA [id number] [address] [address] [place] Glucose Test strip (U) [Mass/Vol] Negative Normal Negative [facility] Comment on above: Order Comment: Speci men Type: URINE SPECIMENOrdering Facility: [facility] [place] Address: [address] [facility], [address], [place] [address] Performed By: #### 2 4356-8 ####[facility] LABCLIA [id number] [place] [address] [place] Hemoglobin Ql (U) 3+ Abnormal Negative [facility] Comment on above: Order Comment: Speci men Type: URINE SPECIMENOrdering Facility: [facility] [place] Address: [address] [facility] [address] [place] [address] Performed By: #### 2 4356-8 ####[facility] LABCLIA [id number] [place] [id number] [place] Hyaline casts (Urine sed) [#/Area] 4-10 /LPF Abnormal 0 /LPF [facility] Comment on above: Order Comment: Speci men Type: URINE SPECIMENOrdering Facility: [facility] [place] Address: [address] [facility], [address], [place] [address] Performed By: #### 2 4356-8 ####[facility] LABCLIA [id number] [address] [address] [place] Ketones Ql (U) Negative Normal Negative [facility] Comment on above: Order Comment: Speci men Type: URINE SPECIMENOrdering Facility: [facility] [place] Address: [address] [facility] [facility], [address], [facility] [place] [address] Performed By: #### 2 4356-8 ####[facility] LABCLIA [id number] [address] [address] [place] Leukocyte esterase Test strip Ql (U) 3+ Abnormal Negative [facility] Comment on above: Order Comment: Speci men Type: URINE SPECIMENOrdering Facility: [facility] [place] Address: [address] [place] [address] [place] [address] Performed By: #### 2 4356-8 ####[facility] LABCLIA [id number] [place] [address] [place] Nitrite Ql (U) Negative Normal Negative [facility] Comment on above: Order Comment: Speci men Type: URINE SPECIMENOrdering Facility: [facility] [place] Address: [address] [place] [address] Performed By: #### 2 4356-8 ####[facility] LABCLIA [id number] [place] [address] [place] pH (U) 5.5 [pH] Normal <8.5 [facility] Comment on above: Order Comment: Speci men Type: URINE SPECIMENOrdering Facility: [facility] [place] Address: [address] [place] [address] [place] [address] Performed By: #### 2 4356-8 ####[facility] LABCLIA [id number] [place] [address] [place] Protein (U) [Mass/Vol] 2+ Abnormal Negative [facility] Comment on above: Order Comment: Speci men Type: URINE SPECIMENOrdering Facility: [facility] [place] Address: [address] [place] [address] [place] [address] Performed By: #### 2 4356-8 ####[facility] LABCLIA [id number] [place] [address] [place] RBC LM.HPF (Urine sed) [#/Area] /[HPF] Abnormal 0-2 /HPF [facility] Comment on above: Order Comment: Speci men Type: URINE SPECIMENOrdering Facility: PRCYumiko Schultz Address: [address] [place] [address] [place] [address] Performed By: #### 2 4356-8 ####[facility] [id number] [place] [id number] [place] Specific gravity (U) [Rel density] 1.021 Normal 1.005-1.03 0 [facility] Comment on above: Order Comment: Speci men Type: URINE SPECIMENOrdering Facility: [facility] Lara Schultz Address: [address] [place] [address] [place] [address] Performed By: #### 2 4356-8 ####[facility] [id number] [place] [id number] [place] Urobilinogen Ql (U) 0.2 EU/dL Normal 0.2-1.0 EU/dL [facility] Comment on above: Order Comment: Speci men Type: URINE SPECIMENOrdering Facility: [facility] Lara Schultz Address: [address] [place] [address] Performed By: #### 2 4356-8 ####[facility] [id number] [place] [id number] [place] WBC LM.HPF (Urine sed) [#/Area] /[HPF] Abnormal 0-5 /HPF [facility] Comment on above: Order Comment: Speci men Type: URINE SPECIMENOrdering Facility: [facility] Lara Schultz Address: [address] [place] [address] A [facility] [place] [address] Performed By: #### 2 4356-8 ####[facility] [id number] [place] [id number] [place] Gastroenterology Visit Repor ton 07-07-2024 Gastroenterology Visit Report [facility] Gastroenterology [address] [place] [address] OFFICE VISIT Date of Service: 07/07/24 MR#: [id number] Acct: [id number] Name: EREN MERCHANT Rep #: [id number] : 1960 Provider: KAUSHAL Alas Age/Sex: 64/F Location: [facility] Status: Signed Intake Vital Signs 03/03/24 13:57 06/06/24 14:36 Height 5 ft 5 in 5 ft 5 in Intake Visit Reasons: 3 M FU 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: brad esophagititis Allergies cetirizine (From [facility]) Allergy (Intermediate, Verified 06/06/24 14:34) Rash erythromycin base Adverse Reaction (Intermediate, Verified 06/06/24 14:34) Diarrhea azithromycin Adverse Reaction (Mild, Verified 06/06/24 14:34) Diarrhea Medications ???Medication ???Instructions ???Recorded ???Confirmed ???Type aspirin 81 mg chewable tablet 81 mg PO DAILY@0800 06/28/1806/06 History cholecalciferol (vitamin D3) 25 1,000 unit PO BID 06/28/18 5 History mcg (1,000 unit) tablet (Vitamin D3) geriatric ielvekiz-cclp-ibxm 1 ea PO DAILY 06/28/18 06/06/24 Hi [...] is feeling well since her last visit. [facility] Medical History History of steroid therapy Wears [...] HPI HPI 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: brad esophagititis Details: EERN MERCHANT, is a 64 F who presents to the office today for f/u. BGi established 04.06.24 following hospitalization for seizure like activity at the [facility]. She was found to have a UTI [...] portion of the duodenum. OV 2.21.25 Pt has been doing well since her [...] constipation, cramping (more content not included)... Normal [facility] Basic metabolic 2000 panelon 07-04-2024 Anion gap [Moles/Vol] 7 mmol/L Low 8-15 [facility] Comment on above: Order Comment: Speci men Type: BLOOD SPECIMENOrdering Facility: [facility] Address: [address] [place] [address] [place] [address] Performed By: #### 2 4321-2 ####[facility] LABCLIA [id number] [address] [address] [place] Calcium [Mass/Vol] 10.1 mg/dL Normal 8.5-10.2 [facility] Comment on above: Order Comment: Speci men Type: BLOOD SPECIMENOrdering Facility: [facility] Address: [address] [place] [address] [place] [address] Performed By: #### 2 4321-2 ####[facility] LABCLIA [id number] [address] [address] [place] Chloride [Moles/Vol] 106 mmol/L Normal 98-107 [facility] Comment on above: Order Comment: Speci men Type: BLOOD SPECIMENOrdering Facility: [facility] Address: [address] [place] [address] [place] [address] Performed By: #### 2 4321-2 ####[facility] LABCLIA [id number] [address] [address] [place] CO2 [Moles/Vol] 28 mmol/L Normal 22-30 [facility] Comment on above: Order Comment: Speci men Type: BLOOD SPECIMENOrdering Facility: [facility] [place] Address: [address] [place] [address] [place] [address] Performed By: #### 2 4321-2 ####[facility] LABCLIA [id number] [place] [address] [place] Creatinine [Mass/Vol] 1.79 mg/dL High 0.58-0.96 [facility] Comment on above: Order Comment: Speci men Type: BLOOD SPECIMENOrdering Facility: [facility] [place] Address: [address] [place] [address] Performed By: #### 2 4321-2 ####[facility] LABCLIA [id number] [place] [address] [place] Creatinine and Glomerular filtration rate.predicted panel (S/P/Bld) 31 mL/min/1.73m??? Low >=60 [facility] Comment on above: Order Comment: Speci men Type: BLOOD SPECIMENOrdering Facility: [facility] [place] Address: [address] [place] [address] Result Comment: Hyun mated Glomerular Filtration Rate [...] actual GFR. Performed By: #### 2 4321-2 ####[facility] LABCLIA [id number] [place] [address] [place] Glucose [Mass/Vol] 89 mg/dL Normal 74-99 [facility] Comment on above: Order Comment: Speci men Type: BLOOD SPECIMENOrdering Facility: [facility] [place] Address: [address] [place] [address] [place] [address] Result Comment: The Indian Diabetes Association (ADA) provides guidance for cutoff [...] Standards of Medical Care in Diabetes 2016, Indian Diabetes Association. Diabetes Care. 2016.39(Suppl 1). Performed By: #### 2 4321-2 ####[facility] LABCLIA [id number] [place] [address] [place] Potassium [Moles/Vol] 4.8 mmol/L Normal 3.7-5.1 [facility] Comment on above: Order Comment: Speci men Type: BLOOD SPECIMENOrdering Facility: [facility] Address: [address] [place] [address] Performed By: #### 2 4321-2 ####[facility] LABCLIA [id number] [place] [address] [place] Sodium [Moles/Vol] 141 mmol/L Normal 136-144 [facility] Comment on above: Order Comment: Speci men Type: BLOOD SPECIMENOrdering Facility: [facility] Address: [address] [place] [address] [place] [address] Performed By: #### 2 4321-2 ####[facility] LABCLIA [id number] [place] [id number] [place] Urea nitrogen [Mass/Vol] 37 mg/dL High 7-21 [facility] Comment on above: Order Comment: Speci men Type: BLOOD SPECIMENOrdering Facility: [facility] Address: [address] [place], [place] [address] [address] Performed By: #### 2 4321-2 ####[facility] LABCLIA [id number] [facility] [place] [address] [place] CNOVon 06-26-2024 CNOV Normal [facility] XR HAND 3V PA/LAT/OBL RTon 0 06-26-2024 XR HAND 3V PA/LAT/OBL RT Normal [facility] CNOVon 06-20-2024 CNOV Normal [facility] CT CHEST WO IVCONon 06-12-19 CT CHEST WO IVCON Normal [facility] EGD Reporton 06-06-2024 EGD Report [facility] Medical Records Department [address] [place] [address] EGD Report MR#: [id number] Acct: [id number] Name: EREN MERCHANT Rep #: [id number] : 1960 64 From: Aditya Cota DO PCP: Dr. Priyanka Smith MD Status:[facility] Patient Name: Eren Merchant Procedure Date: 06/06/2024 [...] pathology results. Procedure Code(s): --- Professional --- 35266, Esophagogastroduodenoscopy, flexible, transoral; with biopsy, single or multiple CPT copyright 2021 [employer]. All rights reserved. The codes documented in this report are preliminary and upon plastics fabricator or welder review may be revised to meet current compliance requirements. Aditya Cota DO 06/06/2024 3:33:34 PM This report has been signed electronically. Number of Addenda: 0 Note Initiated On: 06/06/2024 3:15 PM 06/06/24 1533 Date Aditya Bates Signature: Date (if indicated) CC: Dr. Priyanka Smith MD; Aditya Cota DO Date Dictated: 06/06/241514 Date Transcribed: Shipping Services Sales Representative: RF Signed [facility] MR/POSTOP.ANEon 06-06-2024 MR/POSTOP.[facility] Medical Records Department [address] [place] [address] Anesthesia Postop Eval I 06/06/241535 MR#: [id number] Acct: [id number] Name: EREN MERCHANT Rep #: [id number] : 1960 64 From: Sam Sanchez PCP: Dr. Priyanka Smith MD Status:REG [facility] Race: C Location: [place] [address] Anesthesia: Postop Eval I Current Vital Signs [...] Anesthesia document: Postop Eval 1 completed: Yes 06/06/241536 Date Sam Jones Signature: Date CC: Signed [facility] MR/[id number] 06-06-2024 MR/POSTOPAN2 [facility] Medical Records Department [address] [place] [address] Anesthesia Postop Eval II 06/06/241944 MR#: [id number] Acct: [id number] Name: EREN MERCHANT Rep #: [id number] : 1960 64 From: Estevan Crowder MD PCP: Dr. Priyanka Smith MD Status:DEP [facility] Race: C Location: EN Anesthesia Postop [...] Complications Anesthesia Complication: No 06/06/241947 Date Estevan Crowder MD Cosigner Signature: Date CC: Signed Normal [facility] Surgery Specimen Level Tino 06-06-2024 Surgery Specimen Level IV Patient Age/Sex Location Account Attending Physician EREN MERCHANT 64/F EN [id number] Aditya Cota DO Specimen: [id number] Received: 06/07/24 Status: ALMA [place] Num: [id number] Spec Type: BRAN Meier Dr: Aditya Cota DO [employer] OPERATION: EGD with biopsy PRE-OP DIAGNOSIS: Candidiasis of esophagus TISSUE SUBMITTED: Random esophagus biopsy MICROSCOPIC DIAGNOSIS Esophagus, random biopsy: Fragments of benign squamous epithelium. HIMANSHU.mr 06/08/2024 MICROSCOPIC DESCRIPTION Slides are reviewed. GROSS DESCRIPTION Received in fixative is one container labeled with the patient's name and designated Random esophagus biopsy. The specimen consists of multiple irregular fragments of light lester soft tissue that in aggregate measure 1.2 x 0.2 x 0.1 cm. The specimen is totally submitted in one cassette. MS/mr 06/07/2024 TC:5 CPT:22767 Patient Age/Sex Location Account Attending Physician EREN MERCHANT 64/F EN [id number] Aditya Cota DO Signed (signature on file) Dr. Sammy Szymanski MD 06/08/24 1151 Normal [facility] Comment on above: Performed By: #### P MAGDI ####[facility] [address] [place], [address] MR/J LUISRASHADtherese 06-02-2024 [facility] Records Department [address] [place] [address] PAT - Anesthesia 06/02/24 1600 MR#: [id number] Acct: [id number] Name: EREN MERCHANT Rep #: [id number] : 1960 64 From: Estevan Crowder MD PCP: Dr. Priyanka Smith MD Status:PRE SDC Y Race: C Location: EN Pre-Assessment Diagnosis/Proposed Procedure Planned Operative Procedure(s): EGD Anesthesia History Anesthesia History - jacquard card cutter: Anesthesia History - jacquard card cutter Hx Hospitalization Yes: 03/09 HYPOTENSION/ 06/02/24 12:12 [...] take am of surgery PONV PONV - jacquard card cutter: PONV - jacquard card cutter Female Yes 06/02/24 12:12 HX of Motion [...] 03/03/24 13:57 Respiratory Assessment Respiratory Assessment - jacquard card cutter: Respiratory Tract Infection Hx - jacquard card cutter Hx Respiratory Tract Infection No 06/02/24 12:12 STOP Sleep Apnea STOP Sleep Apnea - jacquard card cutter: STOP Sleep Apnea - jacquard card cutter Hx Hypertension Yes: CONTROLLED WITH MED 06/02/24 [...] Tobacco Use History Tobacco Use History - jacquard card cutter: Tobacco Use History - jacquard card cutter Tobacco Use Smoking Status Never smoker 06/02/24 12:12 Hx Tobacco Use No 06/02/24 12:12 Years Smoking Packs Smoked per Day Smoking Cessation Date was within the last 15 years Hx Smoking Cessation Date Hx Smoking Cessation Counseling Hematologic Medial History Hematologic Hx - jacquard card cutter: 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 Normal [facility] CNPNon 05-31-2024 CNPN Normal [facility] CNOVon 05-30-2024 CNOV Normal [facility] Renal function 2000 panelon 05-26-2024 Albumin [Mass/Vol] 4.0 g/dL Normal 3.9-4.9 [facility] Comment on above: Order Comment: Speci men Type: BLOOD SPECIMENOrdering Facility: [facility] Tucker Address: [place] [address] Performed By: #### 2 4362-6 ####[facility] LABCLIA [id number] [place] [address] [place] Anion gap [Moles/Vol] 13 mmol/L Normal 8-15 [facility] Comment on above: Order Comment: Speci men Type: BLOOD SPECIMENOrdering Facility: [facility] Tucker Address: [place] [address] Performed By: #### 2 4362-6 ####[facility] LABCLIA [id number] [address] [address] [place] Calcium [Mass/Vol] 9.9 mg/dL Normal 8.5-10.2 [facility] Comment on above: Order Comment: Speci men Type: BLOOD SPECIMENOrdering Facility: [facility] Tucker Address: [place] [address] Performed By: #### 2 4362-6 ####[facility] LABCLIA [id number] [address] [address] [place] Chloride [Moles/Vol] 103 mmol/L Normal 98-107 [facility] Comment on above: Order Comment: Speci men Type: BLOOD SPECIMENOrdering Facility: [facility] Address: [place] [address] Performed By: #### 2 4362-6 ####[facility] LABCLIA [id number] [place] [id number] [place] CO2 [Moles/Vol] 22 mmol/L Normal 22-30 [facility] Comment on above: Order Comment: Speci men Type: BLOOD SPECIMENOrdering Facility: [facility] Address: [place] [address] Performed By: #### 2 4362-6 ####[facility] LABCLIA [id number] [place] [id number] [place] Creatinine [Mass/Vol] 1.77 mg/dL High 0.58-0.96 [facility] Comment on above: Order Comment: Speci men Type: BLOOD SPECIMENOrdering Facility: [facility] Address: [place] [address] Performed By: #### 2 4362-6 ####[facility] LABCLIA [id number] [place] [id number] [place] Creatinine and Glomerular filtration rate.predicted panel (S/P/Bld) 31 mL/min/1.73m??? Low >=60 [facility] Comment on above: Order Comment: Speci men Type: BLOOD SPECIMENOrdering Facility: [facility] Address: [place] [id number] Result Comment: Hyun mated Glomerular Filtration Rate [...] actual GFR. Performed By: #### 2 4362-6 ####[facility] LABCLIA [id number] [address] [address] [place] Glucose [Mass/Vol] 94 mg/dL Normal 74-99 [facility] Comment on above: Order Comment: Speci men Type: BLOOD SPECIMENOrdering Facility: [facility] Address: [place] [id number] Result Comment: The Indian Diabetes Association (ADA) provides guidance for cutoff [...] Standards of Medical Care in Diabetes 2016, Indian Diabetes Association. Diabetes Care. 2016.39(Suppl 1). Performed By: #### 2 4362-6 ####[facility] LABIA [id number] [address] [address] [place] Phosphate [Mass/Vol] 3.4 mg/dL Normal 2.7-4.8 [facility] Comment on above: Order Comment: Speci men Type: BLOOD SPECIMENOrdering Facility: [facility] Douglas Address: [place] [address] Performed By: #### 2 4362-6 ####[facility] LABIA [id number] [address] [address] [place] Potassium [Moles/Vol] 3.9 mmol/L Normal 3.7-5.1 [facility] Comment on above: Order Comment: Speci men Type: BLOOD SPECIMENOrdering Facility: [facility] Address: [place] [id number] Performed By: #### 2 4362-6 ####[facility] LABCLIA [id number] [place] [id number] [place] Sodium [Moles/Vol] 138 mmol/L Normal 136-144 [facility] Comment on above: Order Comment: Speci men Type: BLOOD SPECIMENOrdering Facility: [facility] Address: [place] [address] Performed By: #### 2 4362-6 ####[facility] LABCLIA [id number] [place] [id number] [place] Urea nitrogen [Mass/Vol] 33 mg/dL High 7-21 [facility] Comment on above: Order Comment: Speci men Type: BLOOD SPECIMENOrdering Facility: [facility] Address: [place] [address] Performed By: #### 2 4362-6 ####[facility] LABCLIA [id number] [place] [id number] [place] CNOVon 05-24-2024 CNOV Normal [facility] XR KNEE 4V AP/PA/LAT/MERCH B ILon 05-24-2024 XR KNEE 4V AP/PA/LAT/MERCH MANDI Normal [facility] CORTISOL, 30 MINon 5 Cortisol 30 Min post Unsp challenge [Mass/Vol] 17.9 ug/dL Normal [facility] Comment on above: Order Comment: Speci men Type: BLOOD SPECIMENOrdering Facility: [facility] Address: [address] [place] [address] Performed By: #### C OR30 ####[facility] LABCLIA [id number] [place] [address] [place] CORTISOL, 60 MINon 5 Cortisol 1 Hr post Unsp challenge [Mass/Vol] 22.1 ug/dL Normal [facility] Comment on above: Order Comment: Speci men Type: BLOOD SPECIMENOrdering Facility: [facility] Address: [address] [place] [address] Performed By: #### C ORS60M ####[facility] LABCLIA [id number] [place] [address] [place] INTERPRETATION (ACTHST) Normal [facility] Comment on above: Order Comment: Speci men Type: BLOOD SPECIMENOrdering Facility: [facility] Address: [address] [place] [address] Result Comment: Afte r cortrosyn stimulation, a peak cortisol response greater than 12.6 ug/dL may indicate appropriate cortisol secretion. This result should be interpreted within the clinical context and other test results.Clari et al. Clinical Implications for Biochemical Diagnostic Thresholds of Adrenal Sufficiency Using a Highly Specific Cortisol Immunoassay. 2017 Clin. Biochem. 50:475-480. Performed By: #### C ORS60M ####[facility] LABIA [id number] [place] [address] [place] CORTISOL, BASALon 05-23-2024 Cortisol baseline [Mass/Vol] 8.7 ug/dL Normal 4.8-19.5 [facility] Comment on above: Order Comment: Speci men Type: BLOOD SPECIMENOrdering Facility: [facility] Address: [address] [place] [address] Result Comment: Prov ided reference range is from 6-10 AM sample collection time.Cortisol Reference Range: 6-10 AM = 4.8-19.5 ug/dL, 4-8 PM = 2.5-11.9 ug/dL Performed By: #### C ORTBAS ####[facility] LABIA [id number] [place] [address] [place] CNOVon 05-18-2024 CNOV Normal [facility] ACTH Plas-mCncon 05-11-2024 Corticotropin (P) [Mass/Vol] 64.8 pg/mL High 7.2-63.3 [facility] Comment on above: Order Comment: Speci men Type: BLOOD SPECIMENOrdering Facility: [facility] Address: [address], [place] [address] Result Comment: ACTH Reference Range: 7-10 am: 7.2 - 63.3 pg/mL Performed By: #### 2 141-0 ####[facility] LABCLIA [id number] [address] [address] [place] [facility] Comprehensive metabolic 2000 panelon 05-11-2024 Albumin [Mass/Vol] 3.9 g/dL Normal 3.9-4.9 [facility] Comment on above: Order Comment: Speci men Type: BLOOD SPECIMENOrdering Facility: [facility] Address: [address] [place] [address] Performed By: #### 2 4323-8, 2142-10 ####[facility] LABIA [id number] [place] [address] [place] ALP [Catalytic activity/Vol] 98 U/L Normal 34-123 [facility] Comment on above: Order Comment: Speci men Type: BLOOD SPECIMENOrdering Facility: [facility] Address: [address] [place], [place] [address] Performed By: #### 2 4323-8, 2142-10 ####[facility] LABIA [id number] [address] STATES OF [facility] ALT [Catalytic activity/Vol] 17 U/L Normal 7-38 [facility] Comment on above: Order Comment: Speci men Type: BLOOD SPECIMENOrdering Facility: [facility] Address: [address] [place], [place] [address] Performed By: #### 2 4323-8, 2142-10 ####[facility] LABIA [id number] [place] [id number] [place] Anion gap [Moles/Vol] 12 mmol/L Normal 8-15 [facility] Comment on above: Order Comment: Speci men Type: BLOOD SPECIMENOrdering Facility: [facility] Address: [address] [place], [place] [address] Performed By: #### 2 4323-8, 2142-10 ####[facility] LABCLIA [id number] [address] [address] [place] AST [Catalytic activity/Vol] 20 U/L Normal 13-35 [facility] Comment on above: Order Comment: Speci men Type: BLOOD SPECIMENOrdering Facility: [facility] Address: [address] [place] [address] Performed By: #### 2 432-8, 2142-10 ####[facility] LABCLIA [id number] [place] [address] [place] Bilirubin [Mass/Vol] 0.4 mg/dL Normal 0.2-1.3 [facility] Comment on above: Order Comment: Speci men Type: BLOOD SPECIMENOrdering Facility: [facility] Address: [address] [place] [address] Performed By: #### 2 4328, 2142-10 ####[facility] LABIA [id number] [place] [address] [place] Calcium [Mass/Vol] 9.8 mg/dL Normal 8.5-10.2 [facility] Comment on above: Order Comment: Speci men Type: BLOOD SPECIMENOrdering Facility: [facility] Address: [address] [place] [address] Performed By: #### 2 43238, 2142-10 ####[facility] LABCLIA [id number] [place] [address] [place] Chloride [Moles/Vol] 108 mmol/L High 98-107 [facility] Comment on above: Order Comment: Speci men Type: BLOOD SPECIMENOrdering Facility: [facility] Address: [address] [place] [address] Performed By: #### 2 4323-8, 2142-10 ####[facility] LABCLIA [id number] [place] [address] [place] CO2 [Moles/Vol] 22 mmol/L Normal 22-30 [facility] Comment on above: Order Comment: Speci men Type: BLOOD SPECIMENOrdering Facility: [facility] Address: [address] [place] [address] Performed By: #### 2 4323-8, 2142-10 ####[facility] LABCLIA [id number] [place] [id number] [place] Creatinine [Mass/Vol] 1.73 mg/dL High 0.58-0.96 [facility] Comment on above: Order Comment: Speci men Type: BLOOD SPECIMENOrdering Facility: [facility] Address: [address] [place] [address] Performed By: #### 2 4328, 2142-10 ####[facility] LABCLIA [id number] [place] [address] [place] Creatinine and Glomerular filtration rate.predicted panel (S/P/Bld) 32 mL/min/1.73m??? Low >=60 [facility] Comment on above: Order Comment: Speci men Type: BLOOD SPECIMENOrdering Facility: [facility] Address: [address] [place] [address] Result Comment: Hyun mated Glomerular Filtration Rate [...] reflect actual GFR. Performed By: #### 2 4323-8, 2142-10 ####[facility] LABCLIA [id number] [place] [id number] [place] Glucose [Mass/Vol] 96 mg/dL Normal 74-99 [facility] Comment on above: Order Comment: Speci men Type: BLOOD SPECIMENOrdering Facility: [facility] Address: [address] [place] [address] Result Comment: The Indian Diabetes Association (ADA) provides guidance for cutoff [...] Standards of Medical Care in Diabetes 2016, Indian Diabetes Association. Diabetes Care. 2016.39(Suppl 1). Performed By: #### 2 4323-8, 2142-10 ####[facility] LABIA [id number] [place] [address] [place] Potassium [Moles/Vol] 3.9 mmol/L Normal 3.7-5.1 [facility] Comment on above: Order Comment: Speci men Type: BLOOD SPECIMENOrdering Facility: [facility] Address: [address] [place] [address] Performed By: #### 2 4323-8, 2142-10 ####[facility] LABIA [id number] [place] [id number] [place] Protein [Mass/Vol] 6.9 g/dL Normal 6.3-8.0 [facility] Comment on above: Order Comment: Speci men Type: BLOOD SPECIMENOrdering Facility: [facility] Address: [address] [place] [address] Performed By: #### 2 4323-8, 2142-10 ####[facility] LABIA [id number] [place] [id number] [place] Sodium [Moles/Vol] 142 mmol/L Normal 136-144 [facility] Comment on above: Order Comment: Speci men Type: BLOOD SPECIMENOrdering Facility: [facility] Address: [address] [place] [address] Performed By: #### 2 4323-8, 6 ####[facility] LABCLIA [id number] [place] [address] [place] Urea nitrogen [Mass/Vol] 25 mg/dL High 7-21 [facility] Comment on above: Order Comment: Speci men Type: BLOOD SPECIMENOrdering Facility: [facility] Address: [address] [place] [address] Performed By: #### 2 4323-8, 2142-10 ####[facility] LABCLIA [id number] [place] [address] [place] Cortis [facility] 05-11-20 Cortisol [Mass/Vol] 10.2 ug/dL Normal 4.8-19.5 [facility] Comment on above: Order Comment: Speci men Type: BLOOD SPECIMENOrdering Facility: [facility] Address: [address] [place] [address] Result Comment: Prov ided reference range is from 6-10 AM sample collection time.Cortisol Reference Range: 6-10 AM = 4.8-19.5 ug/dL, 4-8 PM = 2.5-11.9 ug/dL Performed By: #### 2 4323-8, 2142-10 ####[facility] LABCLIA [id number] [place] [id number] [place] CNOVon 05-05-2024 CNOV Normal [facility] Basic metabolic 2000 panelon 04-17-2024 Anion gap [Moles/Vol] 13 mmol/L Normal 8-15 [facility] Comment on above: Order Comment: Speci men Type: BLOOD SPECIMENOrdering Facility: [facility] [place] Address: [address] [place] [address] [address], [place] [address] Performed By: #### 2 4321-2 ####[facility] [id number] [place] [address] [place] Calcium [Mass/Vol] 10.3 mg/dL High 8.5-10.2 [facility] Comment on above: Order Comment: Speci men Type: BLOOD SPECIMENOrdering Facility: [facility] Schultz Address: [address] [place] [address] Performed By: #### 2 4321-2 ####[facility] RAFAELHIGHLAND DISTRICT HOSPITALJOSE [id number] [place] [address] [place] Chloride [Moles/Vol] 106 mmol/L Normal 98-107 [facility] Comment on above: Order Comment: Speci men Type: BLOOD SPECIMENOrdering Facility: [facility] Lara Schultz Address: [address] [place] [address] Performed By: #### 2 4321-2 ####[facility]OSPITALWMARNILIA [id number] [place] [address] [place] CO2 [Moles/Vol] 21 mmol/L Low 22-30 [facility] Comment on above: Order Comment: Speci men Type: BLOOD SPECIMENOrdering Facility: [facility] Lara Schultz Address: [address] [place] [address] Performed By: #### 2 4321-2 ####[facility]OS[facility]ITALMARNILIA [id number] [place] [address] [place] Creatinine [Mass/Vol] 1.68 mg/dL High 0.58-0.96 [facility] Comment on above: Order Comment: Speci men Type: BLOOD SPECIMENOrdering Facility: [facility] Lara Schultz Address: [address] [place] [address] [place] [address] Performed By: #### 2 4321-2 ####[facility]OSPITALWNCLIA [id number] [place] [address] [place] Creatinine and Glomerular filtration rate.predicted panel (S/P/Bld) 33 mL/min/1.73m??? Low >=60 [facility] Comment on above: Order Comment: Melinda lobo Type: BLOOD SPECIMENOrdering Facility: [facility] Address: [address] [place] [address] A, [place] [address] Result Comment: Hyun mated Glomerular Filtration Rate [...] actual GFR. Performed By: #### 2 4321-2 ####[facility] [id number] [place] [address] [place] Glucose [Mass/Vol] 106 mg/dL High 74-99 [facility] Comment on above: Order Comment: Melinda lobo Type: BLOOD SPECIMENOrdering Facility: [facility] Address: [address] [place] [address] A, [place] [address] Result Comment: The Indian Diabetes Association (ADA) provides guidance for cutoff [...] Standards of Medical Care in Diabetes 2016, Indian Diabetes Association. Diabetes Care. 2016.39(Suppl 1). Performed By: #### 2 4321-2 ####[facility] HOSPITALKAYLEN [id number] [place] [address] [place] Potassium [Moles/Vol] 3.1 mmol/L Low 3.7-5.1 [facility] Comment on above: Order Comment: Speci men Type: BLOOD SPECIMENOrdering Facility: [facility] [place] Address: [address] [place] [address] A, [place] [address] Performed By: #### 2 4321-2 ####[facility] RAFAEL RAMOSNCLIYumiko [id number] [place] [address] [place] Sodium [Moles/Vol] 140 mmol/L Normal 136-144 [facility] Comment on above: Order Comment: Speci men Type: BLOOD SPECIMENOrdering Facility: [facility] Lara Schultz Address: [address] [place] [address] A, [place] [address] Performed By: #### 2 4321-2 ####[facility] FRANKLYNWEST BROOKLYNNCMANOJ [id number] [place] [address] [place] Urea nitrogen [Mass/Vol] 28 mg/dL High 7-21 [facility] Comment on above: Order Comment: Speci men Type: BLOOD SPECIMENOrdering Facility: [facility] [place] Address: [address] [place] [address] A, [place] [address] Performed By: #### 2 4321-2 ####[facility]OS[facility]ITALMARNILIA [id number] [place] [address] [place] CNOVon 04-17-2024 CNOV Normal [facility] CNPNon 04-14-2024 CNPN Normal [facility] Bacteria Ur Culton Bacteria identified Cx Nom (U) Abnormal [facility] Comment on above: Performed By: #### 6 30-4 ####[facility] LABCLIA [id number] [place] [address] [place] CNOVon 04-10-2024 CNOV Normal [facility] CNPNon 04-10-2024 CNPN Normal [facility] UA DIP, URINE (POC)on 2023 BILIRUBIN UA (POCT) Negative Negative [facility] CLARITY UA (POCT) Clear [facility] COLOR UA (POCT) Yellow [facility] GLUCOSE UA (POCT) Negative Negative mg/dL [facility] Hemoglobin Ql (U) Small Abnormal Negative [facility] Interpretation and review of laboratory results Abnormal [facility] KETONE UA (POCT) Negative Negative mg/dL [facility] LEUKOCYTES UA (POCT) Moderate Abnormal Negative [facility] NITRITE UA (POCT) Negative Negative [facility] PH UA (POCT) 6.5 4.5 - 8.0 [facility] Protein Ql (U) Trace Abnormal Negative mg/dL [facility] SPECIFIC GRAVITY UA (POCT) 1.010 1.005 - 1.030 [facility] UROBILINOGEN UA (POCT) 0.2 Sallie l E.U./dL [facility] Location:[facility], [address] [place] [address], [place], [place], [id number] [place] [address] POINT OF CARE [facility] Gastroenterology Visit Repor ton 2024 Gastroenterology Visit Report [facility] Gastroenterology [address] [place] [address] OFFICE VISIT Date of Service: 04/06/24 MR#: [id number] Acct: [id number] Name: EREN MERCHANT Rep #: [id number] : 1960 Provider: KAUSHAL Alas Age/Sex: 64/F Location: [facility] Status: Signed Intake Vital Signs 03/03/24 13:57 Height 5 ft 5 in Intake Visit Reasons: Checkup on EGD 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: brad esophagititis Allergies cetirizine (From yrte) Allergy (Verified 04/06/24 07:40) Unknown erythromycin base Adverse Reaction (Intermediate, Verified 04/06/24 07:40) Diarrhea azithromycin Adverse Reaction (Mild, Verified 04/06/24 07:40) Diarrhea Medications ???Medication ???Instructions ???Recorded ???Confirmed ???Type aspirin 81 mg chewable tablet 81 mg PO DAILY@0800 06/28/18 04/06/24 History cholecalciferol (vitamin D3) 25 1,000 unit PO DAILY 06/28/18 04/06/24 History mcg (1,000 unit) tablet (Vitamin D3) geriatric yiktlgex-dfjk-vjit 1 ea PO DAILY 06/28/18 04/06/24 History [...] 03.04.24 for seizure like activity at the [facility]. She was found to have a UTI [...] Appearance: average body habitus and well nourished [facility] Head: normal to inspection Ears: hearing grossly normal bilaterally Nose: external nose normal Face and sinus: normal facial exam Eyes General: appearance normal, both eyes and all related structures Neck Neck: normal visual inspection Chest Chest palpation in (more content not included)... Normal [facility] 25(OH)D3 [facility] 2023 25-hydroxyvitamin D3 [Mass/Vol] 49.0 ng/mL Normal 31.0-80.0 [facility] Comment on above: Order Comment: Speci men Type: BLOOD SPECIMENOrdering Facility: GISELLA Tucker Address: [address], [place] [address] Result Comment: Clas sification of 25 [place] Vitamin D status:Deficiency/Insufficiency: < or = 30 ng/ml.Sufficiency/Optimal Levels: 31-80 ng/mLToxicity: > 100 ng/mL.Test performed by chemiluminescent immunoassay. Performed By: #### 1 989-3 ####[facility] LABCLIA [id number] [address] [address] [place] ALBUMIN/CREATININE RATIO, UR INEon 04-05-2024 Albumin DL <= 20 mg/L (U) [Mass/Vol] 672.5 mg/L Normal [facility] Comment on above: Order Comment: Speci men Type: URINE SPECIMENOrdering Facility: [facility] Address: [place] [address] Performed By: #### U ACR ####[facility] LABCLIA [id number] [place] [address] [place] Albumin/Creatinine (U) [Mass ratio] 474 mg/g High <30 [facility] Comment on above: Order Comment: Speci men Type: URINE SPECIMENOrdering Facility: [facility] Address: [place] [address] Result Comment: Adul t Male and Female Nephrotic Criteria:<30 mg/g is considered normal to mildly cxdjiedam33-892 mg/g is considered moderately increased>300 mg/g is considered severely increasedKDIGO. (2013). KDIGO 2012 Clinical Practice Guideline for the Evaluation and Management of Chronic Kidney Disease. Official Journal of the International Society of Nephrology, 3(1), 1-150. Performed By: #### U ACR ####[facility] LABIA [id number] [address] [address] [place] Creatinine (U) [Mass/Vol] 141.8 mg/dL Normal 20.0-300.0 [facility] Comment on above: Order Comment: Speci men Type: URINE SPECIMENOrdering Facility: [facility] Address: [place] [address] Performed By: #### U ACR ####[facility] LABCLIA [id number] [address] [address] [place] PTH-Intact [facility] 11-2 Parathyrin.intact [Mass/Vol] 47 pg/mL Normal 15-65 [facility] Comment on above: Order Comment: Speci men Type: BLOOD SPECIMENOrdering Facility: GISELLA Tucker Address: [place] [address] Performed By: #### 2 731-8, 47826-7 ####[facility] LABCLIA [id number] [facility] [address] [address] [place] Renal function 2000 panelon 04-05-2024 Albumin [Mass/Vol] 3.9 g/dL Normal 3.9-4.9 [facility] Comment on above: Order Comment: Speci men Type: BLOOD SPECIMENOrdering Facility: [facility] Tucker Address: [place] [address] Performed By: #### 2 731-8, 56439-0 ####[facility] LABCLIA [id number] [facility] [address] [address] [place] Anion gap [Moles/Vol] 13 mmol/L Normal 8-15 [facility] Comment on above: Order Comment: Speci men Type: BLOOD SPECIMENOrdering Facility: GISELLA Tucker Address: [place] [address] Performed By: #### 2 731-8, 37164-7 ####[facility] LABCLIA [id number] [facility] [address] [address] [place] Calcium [Mass/Vol] 9.6 mg/dL Normal 8.5-10.2 [facility] Comment on above: Order Comment: Speci men Type: BLOOD SPECIMENOrdering Facility: [facility] Address: [place] [address] Performed By: #### 2 731-8, 53351-8 ####[facility] LABCLIA [id number] [facility] [address] [address] [place] Chloride [Moles/Vol] 102 mmol/L Normal 98-107 [facility] Comment on above: Order Comment: Speci men Type: BLOOD SPECIMENOrdering Facility: GISELLA Tucker Address: [place] [address] Performed By: #### 2 731-8, 00559-3 ####[facility] LABCLIA [id number] [place] [id number] [place] [facility] CO2 [Moles/Vol] 22 mmol/L Normal 22-30 [facility] Comment on above: Order Comment: Speci men Type: BLOOD SPECIMENOrdering Facility: [facility] Address: [place] [id number] Performed By: #### 2 731-8, 78481-5 ####[facility] LABIA [id number] [address] STATES OF [facility] Creatinine [Mass/Vol] 2.05 mg/dL High 0.58-0.96 [facility] Comment on above: Order Comment: Speci men Type: BLOOD SPECIMENOrdering Facility: [facility] Address: [place] [id number] Performed By: #### 2 731-8, 89328-3 ####[facility] LABIA [id number] [address] Creatinine and Glomerular filtration rate.predicted panel (S/P/Bld) 26 mL/min/1.73m??? Low >=60 [facility] Comment on above: Order Comment: Speci men Type: BLOOD SPECIMENOrdering Facility: [facility]Yumiok Tucker Address: [place] [id number] Result Comment: Hyun mated Glomerular Filtration Rate [...] actual GFR. Performed By: #### 2 731-8, 38209-6 ####[facility] LABCLIA [id number] [place] [id number] [place] Glucose [Mass/Vol] 109 mg/dL High 74-99 [facility] Comment on above: Order Comment: Speci men Type: BLOOD SPECIMENOrdering Facility: [facility] Douglas Address: [place] [id number] Result Comment: The Indian Diabetes Association (ADA) provides guidance for cutoff [...] Standards of Medical Care in Diabetes 2016, Indian Diabetes Association. Diabetes Care. 2016.39(Suppl 1). Performed By: #### 2 731-8, 87440-0 ####[facility] LABCLIA [id number] [place] [address] [place] Phosphate [Mass/Vol] 3.2 mg/dL Normal 2.7-4.8 [facility] Comment on above: Order Comment: Zeni lobo Type: BLOOD SPECIMENOrdering Facility: [facility] Douglas Address: [place] [id number] Performed By: #### 2 731-8, 46016-8 ####[facility] LABCLIA [id number] [place] [address] [place] Potassium [Moles/Vol] 4.0 mmol/L Normal 3.7-5.1 [facility] Comment on above: Order Comment: Speci men Type: BLOOD SPECIMENOrdering Facility: [facility] Douglas Address: [place] [id number] Performed By: #### 2 731-8, 56585-3 ####[facility] LABCLIA [id number] [place] [address] [address] [place] Sodium [Moles/Vol] 137 mmol/L Normal 136-144 [facility] Comment on above: Order Comment: Speci men Type: BLOOD SPECIMENOrdering Facility: [facility]Yumiko BobbyDouglas Address: [place] [address] Performed By: #### 2 731-8, 11725-1 ####[facility] LABCLIA [id number] [facility] [place] [address] [place] Urea nitrogen [Mass/Vol] 21 mg/dL Normal 7-21 [facility] Comment on above: Order Comment: Speci men Type: BLOOD SPECIMENOrdering Facility: [facility] Douglas Address: [place] [id number] Performed By: #### 2 731-8, 22429-2 ####[facility] LABCLIA [id number] [facility] [place] [id number] [place] Urinalysis complete panel (U )on 04-05-2024 BACTERIA UL >9821 High Negative [facility] Comment on above: Order Comment: Speci men Type: URINE SPECIMENOrdering Facility: [facility] Douglas Address: [place] [address] Performed By: #### 2 4356-8 ####[facility] LABCLIA [id number] [facility] [address] [address] [place] Bilirubin Ql (U) Negative Normal Negative [facility] Comment on above: Order Comment: Speci men Type: URINE SPECIMENOrdering Facility: [facility] Douglas Address: [place] [address] Performed By: #### 2 4356-8 ####[facility] LABCLIA [id number] [facility] [place] [address] [place] Clarity (Unsp spec) Turbid Abnormal [facility] Comment on above: Order Comment: Speci men Type: URINE SPECIMENOrdering Facility: [facility] Douglas Address: [place] [address] Performed By: #### 2 4356-8 ####[facility] LABCLIA [id number] [place] [address] [place] Color (U) Yellow Normal Yellow [facility] Comment on above: Order Comment: Speci men Type: URINE SPECIMENOrdering Facility: [facility] Douglas Address: [place] [address] Performed By: #### 2 4356-8 ####[facility] LABCLIA [id number] [place] [address] [place] Epithelial cells LM.HPF (Urine sed) [#/Area] Moderate Normal [facility] Comment on above: Order Comment: Speci men Type: URINE SPECIMENOrdering Facility: [facility] Douglas Address: [place] [address] Performed By: #### 2 4356-8 ####[facility] LABCLIA [id number] [place] [address] [place] Glucose Test strip (U) [Mass/Vol] Negative Normal Negative [facility] Comment on above: Order Comment: Speci men Type: URINE SPECIMENOrdering Facility: [facility] BobbyDouglas Address: [place] [address] Performed By: #### 2 4356-8 ####[facility] LABCLIA [id number] [place] [address] [place] Hemoglobin Ql (U) 3+ Abnormal Negative [facility] Comment on above: Order Comment: Speci men Type: URINE SPECIMENOrdering Facility: [facility] Douglas Address: [place] [address] Performed By: #### 2 4356-8 ####[facility] LABCLIA [id number] [place] [address] [place] Hyaline casts (Urine sed) [#/Area] 4-10 /LPF Abnormal 0 /LPF [facility] Comment on above: Order Comment: Speci men Type: URINE SPECIMENOrdering Facility: [facility] [place] Address: [place] [address] Performed By: #### 2 4356-8 ####[facility] LABCLIA [id number] [place] [address] [place] Ketones Ql (U) Negative Normal Negative [facility] Comment on above: Order Comment: Speci men Type: URINE SPECIMENOrdering Facility: [facility] Douglas Address: [place] [id number] Performed By: #### 2 4356-8 ####[facility] LABCLIA [id number] [place] [address] [place] Leukocyte esterase Test strip Ql (U) 3+ Abnormal Negative [facility] Comment on above: Order Comment: Speci men Type: URINE SPECIMENOrdering Facility: [facility] Address: [place] [id number] Performed By: #### 2 4356-8 ####[facility] LABCLIA [id number] [place] [address] [place] Nitrite Ql (U) Positive Abnormal Negative [facility] Comment on above: Order Comment: Speci men Type: URINE SPECIMENOrdering Facility: [facility] Douglas Address: [place] [id number] Performed By: #### 2 4356-8 ####[facility] LABCLIA [id number] [place] [address] [place] pH (U) 6.5 [pH] Normal <8.5 [facility] Comment on above: Order Comment: Speci men Type: URINE SPECIMENOrdering Facility: [facility] Douglas Address: [place] [id number] Performed By: #### 2 4356-8 ####[facility] LABCLIA [id number] [place] [address] [place] Protein (U) [Mass/Vol] 3+ Abnormal Negative [facility] Comment on above: Order Comment: Speci men Type: URINE SPECIMENOrdering Facility: [facility] Address: [place] [id number] Performed By: #### 2 4356-8 ####[facility] LABIA [id number] [place] [address] [place] RBC LM.HPF (Urine sed) [#/Area] /[HPF] Abnormal 0-2 /HPF [facility] Comment on above: Order Comment: Speci men Type: URINE SPECIMENOrdering Facility: [facility] Address: [place] [id number] Performed By: #### 2 4356-8 ####[facility] [id number] [place] [address] [place] Specific gravity (U) [Rel density] 1.017 Normal 1.005-1.03 0 [facility] Comment on above: Order Comment: Speci men Type: URINE SPECIMENOrdering Facility: [facility] Address: [place] [id number] Performed By: #### 2 4356-8 ####[facility] [id number] [place] [address] [place] [facility] Urobilinogen Ql (U) 1.0 EU/dL Normal 0.2-1.0 EU/dL [facility] Comment on above: Order Comment: Speci men Type: URINE SPECIMENOrdering Facility: [facility] Address: [place] [phone] Performed By: #### 2 4356-8 ####[facility] LABIA [id number] [place] [address] [place] WBC LM.HPF (Urine sed) [#/Area] /[HPF] Abnormal 0-5 /HPF [facility] Comment on above: Order Comment: Speci men Type: URINE SPECIMENOrdering Facility: [facility] Address: [place] [phone] Performed By: #### 2 4356-8 ####[facility] LABCLIA [id number] [address] [place] 36on 04-03-2024 36 Name of caller: Vic booker Contact phone number: [phone] Relationship to Patient: patient Provider: Dr. Kayli Velasquez Practice: Neurology 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/Reason for Call: Patient is requesting ED notes and testing from 03/04/24 and 03/06/24 to be faxed to her neurologist at [phone]. Please advise. Best time of day caller can be reached: Any Patient advised that office/PCP has 24-48 business hours to return their call: Yes [facility] 36on 03-27-2024 36 Spoke with Pt - Pt quoc sanchez [place] location. Pt appt rescheduled to 04.07.24 @0920 [facility] with Dr. Blake. Pt aware of appt d/t/l. [facility] 36 Patient retuning christina l and states she was offered [place] location on the . Please call to reschedule. [facility] 36on 03-24-2024 36 Name of Caller: Vic booker Contact Reason for Appointment: Patient called to verify procedure appointment. Patient asked if there was a closer off to where she lives. Please call patient back to advise. Office Name: Urology Medication Refills need, if any: N/A Medication Name: N/A [facility] 36 Cysto stent removal on 04/04/[address] Blake in [place]. [facility] 36on 03-23-2024 36 Had bilateral laser litho, needs cysto stent removal in one week [facility] No Panel Informationon 03-23 There is no [...] her clothes while up to bathroom. Normal [facility] Nursing Note Took over care of kaushal pena for RN lunch break. Patient just placed on bed mcgraw per RN. Normal [facility] Op Noteon 03-23-2024 Op Note Javier Rosenberg 03/23/2024 at 5:20 [...] Diagnostic ureteroscopy was performed using the 6.9 [place] semirigid ureteroscope. The scope was advanced along [...] anesthesia. Katherine Bowen MD 03/23/24 5:20 PM [facility] Op Note Date: 03/23/2024 Loca tion: [facility] OR Name: Eren Merchant, : 1960, Diagnosis Pre-op Diagnosis * Calculus of ureter [N20.1] Post-op Diagnosis * Calculus of ureter [N20.1] Procedures CYSTOSCOPY AND PYELOGRAM 87219 - [place] CYSTO BLADDER W/URETERAL CATHETERIZATION BILATERAL URETEROSCOPY, HOLMIUM LASER LITHOTRIPSY 76181 - MN CYSTO W/URETEROSCOPY W/LITHOTRIPSY BILATERAL URETERAL STENT CHANGE 59308 - [place] CYSTO W/INSERT URETERAL STENT Surgeons * Katherine Bowen - Primary Procedure Summary Anesthesia: General ASA: II Estimated Blood Loss: 10 mL Drains: * None in log * Implants Type Name Action Serial No. Stent STENT URET 6FR 24CM WO GW - [id number] Implanted Staff: Student Financial Aid Manager: Sam Roca RN Relief Student Financial Aid Manager: Jordan Jacobson RN Scrub Person: Abdulkadir Summers [...] (two hours if receiving Vancomycin or flouroquinolone) [facility] CNPNon 03-22-[address] [facility] 03-21-[address] 03-16-2024 36 Lvm for Pt letting h er know if she still has questions to call our office. [facility] CNOVon 03-16-[address] [facility] 36on 03-15-2024 36 Name of caller: Vic booker Contact phone number: [phone] Relationship to Patient: patient Provider: Clarice Practice: [...] business hours to return their call: N/A [address] 03-14-2024 36 Spoke with patient. Advised that since she has had SX with Dr. Bowen and has additional SX scheduled on 03/23 no need to schedule in office follow up at this time. Advised after SX on 03/23 Dr. Bowen will advise on follow up needed and patient will be scheduled at that time. Patient voiced understanding. [place] [address] 03-13-2024 36 Name of Caller: Vic booker Contact Reason for Appointment: Eren stated she was recently in the hospital and in OV notes it states for her to schedule an appointment with Dr Bae in 2 weeks, Please call Eren back to advise. Office Name: Urology Medication Refills need, if any: N/A Medication Name: N/A [place] [address] 03-10-2024 36 I called and spoke w ith patient. She would prefer to establish with GI near her house. She stated they recommended Dr Cota - she will call his office today and contact us to let us know who she makes an appointment with and we will send records at that time. [facility] 36on 03-09-2024 36 Doctor: Clarice DIETZ (arrive 15 min early): N/A PAT instructions: Please bring photo ID, insurance card, list of all current medications Surgery: 03/23/24 at 12:30pm at [facility] Surgery arrival time: 10:30am Surgery instructions: Nothing to eat after midnight. Can have clear liquids black coffee (no cream or dairy), tea, water, Sprite, apple juice, Gatorade (no reds or purples) up until arrival time. Medication instructions: Hold Aspirin, fish oil and over the counter vitamins 3 days prior to surgery Post op follow-up: Normal [facility] BASIC METABOLIC PANELon 02-15 Anion gap [Moles/Vol] 4 mmol/L Normal 3-13 [facility] Comment on above: Performed By: #### L AB15 ####Cuprous Chloride Helper: LACY OROSCO ([phone])[address] Calcium [Mass/Vol] 9.4 mg/dL Normal 8.4-10.4 [facility] Comment on above: Performed By: #### L AB15 ####Cuprous Chloride Helper: LACY OROSCO ([phone])[address] Chloride [Moles/Vol] 102 mmol/L Normal 98-107 [facility] Comment on above: Performed By: #### L AB15 ####Cuprous Chloride Helper: LACY OROSCO ([phone])[address] CO2 [Moles/Vol] 26 mmol/L Normal 22-30 [facility] Comment on above: Performed By: #### L AB15 ####Cuprous Chloride Helper: LACY [phone])[address] Creatinine [Mass/Vol] 1.77 mg/dL High 0.52-1.04 [facility] Comment on above: Performed By: #### L AB15 ####Cuprous Chloride Helper: LACY [id number])[facility] ([facility])[address] [place] [address] GLOMERULAR FILTRATION RATE ML/MIN/1.73 SQ M.PREDICTED 31.6 mL/min/1.73m*2 Low >60.0 [facility] Comment on above: Result Comment: Calc ulation based on the Chronic Kidney Disease Epidemiology Collaboration (CKD-EPI) equation refit without adjustment for race Performed By: #### L AB15 ####Cuprous Chloride Helper: LACY OROSCO ([phone])[facility] ([facility])[address] [place] [address] Glucose [Mass/Vol] 124 mg/dL High 70-100 [facility] Comment on above: Performed By: #### L AB15 ####Cuprous Chloride Helper: LACY OROSCO ([phone])[facility] ([facility])[address] [place] [address] Potassium [Moles/Vol] 3.6 mmol/L Normal 3.5-5.1 [facility] Comment on above: Performed By: #### L AB15 ####Cuprous Chloride Helper: LACY OROSCO ([phone])[facility] ([facility])[address] [place] [address] Sodium [Moles/Vol] 132 mmol/L Low 135-145 [facility] Comment on above: Performed By: #### L AB15 ####Cuprous Chloride Helper: LACY OROSCO ([phone])[facility] ([facility])[address] [place] [address] [place] Urea nitrogen [Mass/Vol] 40 mg/dL High 7-17 [facility] Comment on above: Performed By: #### L AB15 ####Cuprous Chloride Helper: LACY OROSCO ([phone])[facility] ([facility])[address] [place] [address] Basic metabolic 1998 panelon 03-09-2024 Anion gap [Moles/Vol] 4 mmol/L 3 - 13 mmol/L [facility] Calcium [Mass/Vol] 9.4 mg/dL 8.4 - 10. 4 mg/dL [facility] Chloride [Moles/Vol] 102 mmol/L 98 - 10 7 mmol/L [facility] CO2 [Moles/Vol] 26 mmol/L 22 - 30 mmol/L [facility] Creatinine [Mass/Vol] 1.77 mg/dL High 0.52 - 1.04 mg/dL [facility] GFR/1.73 sq M.predicted (S/P/Bld) [Vol rate/Area] 31.6 mL/min Low - PINF [facility] Comment on above: Calculation based on the Chronic Kidney Disease Epidemiology Collaboration (CKD-EPI) equation refit without adjustment for race Glucose [Mass/Vol] 124 mg/dL High 70 - 100 mg/dL [facility] Interpretation and review of laboratory results Abnormal [facility] Potassium [Moles/Vol] 3.6 mmol/L 3.5 - 5.1 mmol/L [facility] Sodium [Moles/Vol] 132 mmol/L Low 135 - 145 mmol/L [facility] Urea nitrogen [Mass/Vol] 40 mg/dL High 7 - 17 mg/dL [facility] CBC W Auto Differential pane l (Bld)Ordered By: Vladimir North on 03-09-2024 Erythrocyte distribution width (RBC) [Ratio] 15.3 % High 11.5 - 15.0 % [facility] Hematocrit (Bld) [Volume fraction] 31.4 % Low 35.0 - 47.0 % [facility] Hemoglobin (Bld) [Mass/Vol] 10 g/dL Low 11.7 - 16.0 g/dL [facility] Interpretation and review of laboratory results Abnormal [facility] MCH (RBC) [Entitic mass] 25.3 pg Low 26.0 - 34.0 pg [facility] MCHC (RBC) [Mass/Vol] 31.8 % 30.5 - 36.0 % [facility] MCV (RBC) [Entitic vol] 79.5 fL 77.0 - 99.0 fL [facility] Platelet mean volume (Bld) [Entitic vol] 10.3 fL 9.0 - 12.7 fL [facility] Platelets (Bld) [#/Vol] 401 10*3/uL 140 - 440 10*3/uL [facility] RBC (Bld) [#/Vol] 3.95 10*6/uL 3.80 - 5.20 10*6/uL [facility] WBC (Bld) [#/Vol] 13.8 10*3/uL High 3.6 - 10.7 10*3/uL [facility] CBC WITH AUTO DIFFERENTIALon 03-09-2024 Erythrocyte distribution width (RBC) [Ratio] 15.3 % High 11.5-15.0 [facility] Comment on above: Performed By: #### L [id number], [id number] ####Cuprous Chloride Helper: LACY OROSCO ([phone])[address] Hematocrit (Bld) [Volume fraction] 31.4 % Low 35.0-47.0 [facility] Comment on above: Performed By: #### L [id number], [id number] ####Cuprous Chloride Helper: LACY OROSCO ([id number])[address] Hemoglobin (Bld) [Mass/Vol] 10.0 g/dL Low 11.7-16.0 [facility] Comment on above: Performed By: #### L [id number], [id number] ####Cuprous Chloride Helper: LACY OROSCO ([phone])[address] MCH (RBC) [Entitic mass] 25.3 pg Low 26.0-34.0 [facility] Comment on above: Performed By: #### L [id number], [id number] ####Cuprous Chloride Helper: LACY OROSCO ([phone])[address] MCHC 31.8 % Normal 30.5-36.0 [facility] Comment on above: Performed By: #### L [id number], [id number] ####Cuprous Chloride Helper: LACY OROSCO ([phone])[address] MCV (RBC) [Entitic vol] 79.5 fL Normal 77.0-99.0 [facility] Comment on above: Performed By: #### L [id number], [id number] ####Cuprous Chloride Helper: LACY OROSCO ([phone])[facility])[address] [place] [address] Platelet mean volume (Bld) [Entitic vol] 10.3 fL Normal 9.0-12.7 [facility] Comment on above: Performed By: #### L [id number], [id number] ####Cuprous Chloride Helper: LACY OROSCO ([phone])[facility])[address] [place] [address] Platelets (Bld) [#/Vol] 401 10*3/uL Normal 140-440 [facility] Comment on above: Performed By: #### L [id number], [id number] ####Cuprous Chloride Helper: LACY OROSCO ([phone])[facility])[address] [place] [address] RBC (Bld) [#/Vol] 3.95 10*6/uL Normal 3.80-5.20 [facility] Comment on above: Performed By: #### L [id number], [id number] ####Cuprous Chloride Helper: LACY OROSCO ([phone])[facility])[address] [place] [address] WBC (Bld) [#/Vol] 13.8 10*3/uL High 3.6-10.7 [facility] Comment on above: Performed By: #### L [id number], [id number] ####Cuprous Chloride Helper: LACY OROSCO ([phone])[facility])[address] [place] [address] Laboratory - Hematology and Cell countson 03-09-2024 Band form neutrophils (Bld) [#/Vol] 1.1 10*3/uL High NINF - 0.0 10*3/uL [facility] Band form neutrophils/100 WBC (Bld) 8 % High NINF - 0 % [facility] Mago cells LM Ql (Bld) Rare Abnormal (none) [facility] Eosinophils (Bld) [#/Vol] 0.4 10*3/uL 0.0 - 0.5 10*3/uL [facility] Eosinophils/100 WBC (Bld) 3 % 0 - 6 % [facility] Lymphocytes (Bld) [#/Vol] 1.8 10*3/uL 1.0 - 4.3 10*3/uL [facility] Lymphocytes/100 WBC (Bld) 13 % Low 15 - 45 % [facility] Metamyelocytes (Bld) [#/Vol] 0.1 10*3/uL High NINF - 0.0 10*3/uL [facility] Metamyelocytes/100 WBC (Bld) 1 % High NINF - 0 % [facility] Monocytes (Bld) [#/Vol] 0.6 10*3/uL 0.0 - 0.9 10*3/uL [facility] Monocytes/100 WBC (Bld) 4 % Low 5 - 13 % [facility] Neutrophils (Bld) [#/Vol] 10.9 10*3/uL High 1.8 - 7.5 10*3/uL [facility] Poikilocytosis LM Ql (Bld) Rare Abnormal (none) [facility] RBC morphology finding Nom (Bld) abnormal [facility] Segmented neutrophils/100 WBC (Bld) 71 % 38 - 82 % [facility] MANUAL DIFFERENTIAL (CELLAVI DARIUSZ)on 03-09-2024 BAND NEUTROPHILS TOTAL PER COUNTED LEUKOCYTES BY MANUAL COUNT 8 Normal [facility] Comment on above: Performed By: #### L [id number], [id number] ####Cuprous Chloride Helper: LACY [phone])[facility])[address] [place] [address] BANDS (10*3/UL) IN BLOOD-CELLAVISION 1.1 10*3/uL High <=0.0 [facility] Comment on above: Performed By: #### L [id number], [id number] ####Cuprous Chloride Helper: LACY [phone])[facility] ([facility])[address] [place] [address] BASOPHILS TOTAL PER COUNTED LEUKOCYTES BY MANUAL COUNT Normal [facility] Comment on above: Performed By: #### L [id number], [id number] ####Cuprous Chloride Helper: LACY [phone])[facility] [place] [address] [place] BLASTS TOTAL PER COUNTED LEUKOCYTES BY MANUAL COUNT Normal [facility] Comment on above: Performed By: #### L [id number], [id number] ####Cuprous Chloride Helper: LACY OROSCO ([phone])[facility] ([facility])[address] [place] [address] [place] MAGO CELLS PRESENCE IN BLOOD BY LIGHT MICROSCOPY Rare Abnormal (none) [facility] Comment on above: Performed By: #### L [id number], [id number] ####Cuprous Chloride Helper: LACY OROSCO ([phone])[facility] ([facility])[address] [place] [address] [place] EOSINOPHILS (10*3/UL) IN BLOOD-CELLAVISION 0.4 10*3/uL Normal 0.0-0.5 [facility] Comment on above: Performed By: #### L [id number], [id number] ####Cuprous Chloride Helper: LACY OROSCO ([phone])[facility] ([facility])[address] [place] [address] [place] EOSINOPHILS TOTAL PER COUNTED LEUKOCYTES BY MANUAL COUNT 3 High 0-1 [facility] Comment on above: Performed By: #### L [id number], [id number] ####Cuprous Chloride Helper: LACY OROSCO ([phone])[facility] ([facility])[address] [place] [address] [place] EOSINOPHILS/100 LEUKOCYTES IN BLOOD-CELLAVISION 3 % Normal 0-6 [facility] Comment on above: Performed By: #### L [id number], [id number] ####Cuprous Chloride Helper: LACY OROSCO ([phone])[facility] ([facility])[address] [place] [address] [place] LYMPHOCYTES (10*3/UL) IN BLOOD-CELLAVISION 1.8 10*3/uL Normal 1.0-4.3 [facility] Comment on above: Performed By: #### L [id number], [id number] ####Cuprous Chloride Helper: LACY OROSCO ([phone])[facility] ([facility])[address] [place] [address] [place] LYMPHOCYTES TOTAL PER COUNTED LEUKOCYTES BY MANUAL COUNT 13 Normal [facility] Comment on above: Performed By: #### L [id number], [id number] ####Cuprous Chloride Helper: LACY OROSCO ([phone])[facility])[address] [place] [address] [place] LYMPHOCYTES/100 LEUKOCYTES IN BLOOD-CELLAVISION 13 % Low 15-45 [facility] Comment on above: Performed By: #### L [id number], [id number] ####Cuprous Chloride Helper: LACY OROSCO ([phone])[facility] ([facility])[address] [place] [address] [place] METAMYELOCYTES (10*3/UL) IN BLOOD-CELLAVISION 0.1 10*3/uL High <=0.0 [facility] Comment on above: Performed By: #### L [id number], [id number] ####Cuprous Chloride Helper: LACY OROSCO ([phone])[facility])[address] [place] [address] [place] METAMYELOCYTES TOTAL PER COUNTED LEUKOCYTES BY MANUAL COUNT 1 Normal [facility] Comment on above: Performed By: #### L [id number], [id number] ####Cuprous Chloride Helper: LCAY OROSCO ([phone])[facility] ([facility])[address] [place] [address] [place] METAMYELOCYTES/100 LEUKOCYTES IN BLOOD-CELLAVISION 1 % High <=0 [facility] Comment on above: Performed By: #### L [id number], [id number] ####Cuprous Chloride Helper: LACY OROSCO ([phone])[facility] ([facility])[address] [place] [address] [place] MONOCYTES (10*3/UL) IN BLOOD-CELLAVISION 0.6 10*3/uL Normal 0.0-0.9 [facility] Comment on above: Performed By: #### L [id number], [id number] ####Cuprous Chloride Helper: LACY OROSCO ([phone])[facility] ([facility])[address] [place] [address] [place] MONOCYTES TOTAL PER COUNTED LEUKOCYTES BY MANUAL COUNT 4 Normal [facility] Comment on above: Performed By: #### L [id number], [id number] ####Cuprous Chloride Helper: LACY OROSCO ([phone])[facility] ([facility])[address] [place] [address] [place] MONOCYTES/100 LEUKOCYTES IN BLOOD-SARIKA 4 % Low 5-13 [facility] Comment on above: Performed By: #### L [id number], [id number] ####Cuprous Chloride Helper: LACY OROSCO ([phone])[facility] ([facility])[address] [place] [address] [place] MYELOCYTES COUNTED BY MANUAL COUNT Normal [facility] Comment on above: Performed By: #### L [id number], [id number] ####Cuprous Chloride Helper: LACY OROSCO ([phone])[facility] ([facility])[address] [place] [address] [place] NEUTROPHILS BAND FORM/100 LEUKOCYTES IN BLOOD-CELLAVISI 8 % High <=0 [facility] Comment on above: Performed By: #### L [id number], [id number] ####Cuprous Chloride Helper: LACY OROSCO ([phone])[facility] ([facility])[address] [place] [address] [place] NEUTROPHILS TOTAL PER COUNTED LEUKOCYTES BY MANUAL COUNT 70 Normal [facility] Comment on above: Performed By: #### L [id number], [id number] ####Cuprous Chloride Helper: LACY OROSCO ([phone])[facility] ([facility])[address] [place] [address] [place] POIKILOCYTOSIS (PRESENCE) IN BLOOD BY LIGHT MICROSCOPY Rare Abnormal (none) [facility] Comment on above: Performed By: #### L [id number], [id number] ####Cuprous Chloride Helper: LACY OROSCO ([phone])[facility] ([facility])[address] [place] [address] [place] PROMYELOCYTES TOTAL PER COUNTED LEUKOCYTES BY MANUAL COUNT Normal [facility] Comment on above: Performed By: #### L [id number], [id number] ####Cuprous Chloride Helper: LACY OROSCO ([phone])[facility] ([facility])[address] [place] [address] RBC MORPHOLOGY IN BLOOD abnormal Normal [facility] Comment on above: Performed By: #### L [id number], [id number] ####Cuprous Chloride Helper: LACY OROSCO ([phone])[facility])[address] [place] [address] SEGMENTED NEUTROPHILS (10*3/UL) IN BLOOD-CELLAVISION 10.9 10*3/uL High 1.8-7.5 [facility] Comment on above: Performed By: #### L [id number], [id number] ####Cuprous Chloride Helper: LACY OROSCO ([phone])[facility])[address] [place] [address] SEGMENTED NEUTROPHILS/100 LEUKOCYTES-CE 71 % Normal 38-82 [facility] Comment on above: Performed By: #### L [id number], [id number] ####Cuprous Chloride Helper: LACY OROSCO ([phone])[facility] ([facility])[address] [place] [address] UNCLASSIFIED CELLS TOTAL PER COUNTED LEUKOCYTES BY MANUAL COUNT [facility] Comment on above: Performed By: #### L [id number], [id number] ####Cuprous Chloride Helper: LACY OROSCO ([phone])[facility])[address] [place] [address] VARIANT LYMPHOCYTES TOTAL PER COUNTED LEUKOCYTES BY MANUAL COUNT [facility] Comment on above: Performed By: #### L [id number], [id number] ####Cuprous Chloride Helper: LACY OROSCO ([phone])[facility])[address] [place] [address] No Panel InformationOrdered By: Bar Pham on 03-09-2024 Case Report Surgical Pathology C ase: [id number] Authorizing Provider: Jennifer Sung MD Collected: 03/07/2024 1009 Ordering Location: [facility] Endoscopy Received: 03/07/2024 1058 Pathologist: Bar Pham MD Specimen: Gastric Antrum, R/O H Pylori [facility] Phone: Clinical Information h7ihlIWaPAZhrMAlDMu wMlxhbnN hIXRaaLWgF3YqaworBEbzTP2sCY 8toAyzpQLujCRwGNLsPqAaa9tzc 106qFIfi7tmWQYNVDpmKQVPTCh6 lEhgM74dp8T2UdmyB6tkCUYeUJe aXOReIMnxzIGrWTk6LSXbyYKwkv OcSuCcELTnwGHtkJG7OYOzAC7qu prtHAfuKDezTWFefiC9EUIinYMz C3VgSDSwMJ6lvofbXAI6AEeaTFC jFAS0XuHaEOVmf1Xbmrs2BeTzqC FyZFxwbGFpblxmczIwXGNmMSBFc 77qwXEyLCClTIE2k50cyKhgtLF3 GEUIYePlIN3bgGOhqO== [facility] Phone: Disclaimer q1oblYIeJXDwdUSpDlFx MDAwXGF jj4hqYLRugFJyStQdDmBkFgAxNw fdkTXbFXWiByLwh0eeb594qEEed 6jmCHFlVbD7mBJeWPLmD18pVBJL C330LEFhVYsit8oca3AlYHTiyWN xq5I8LXBYGRofVZGLHEm5sAzxL7 8nb4U4YxkfI3vxKOJjDOGrO2HdF K6nCYTmTic4ITS3NQQ9VMRhLXIq C7KxNU3cHNKipMCpCDx1k5grkVw jWEWrYHJ3i5ccEPuwueTkBC3zti 4qfZv2g1iuadSeQJFfYGLrzNKVH CQdD8BhqYqmDi7yyNl6lXwmMxwg UYY1Kxc6OE7fao33pjg8tWxfUZT uarhpLlO6ZMmzQFIftaxjOIo9SB yuTUAqoVR6OWBejUZjR0SkBZJiG M4lvsq8LTT4CIqfQSMwIuU8FHFk jVSsTSLyuEtkPVkbh683VDS3ByE hVS2pN8Zxk0L8lV2diOXpKYDwuR VrWzQfMATbvr8wuAJkGUjqs3DnL GE4awL2wYNzbIMvFCCnNT10Njlo g3JsZaapZUC8DKMmzxAma7Jxy9b lWqOiyeRzD5vnZ4HiZSThMEOjAW JcFuCnekPxz1Vyy4EtxQQidQv0h 2hqOCAoEXRvaSrxu8paBKF6ZZFv J5Z6aKNsl2gvSEzjBNFotXY9cyE 3XSToyVUrR2BihS1pNCCnSL1zvc d9z8yhEXF4AYipVYUpGrX9dyH3D SPbhXRrGTEpxPigLMqpp199AMH1 TgPeQLTau5SoD7BfhEksT52efPu tX48lLYOmcIxhtN3xhGunaK5nKw BcZnMyNFxxbFxwbGFpblxmMVxmc uF4ZDvjiwmeXBPdXLshX7huAsDq APKeeIziSTmtv9BoUFYjKTYkPHJ uNJrzH8oqvL4zpfebNVuhUXMypL sgg0djHpKktHG0XU2etlVyCDQsg GmhxyY3meFyySmpaM1caC1kqZqi oE4aqGAivJE7zwfiZKfkAXEwbCH rpGvrklgtsOnigSzmjoyjiU0dOT E7eDQcLLT2iNOpOJPqSJYeFAKnm H10zv2etFDtsoShK0ObC9VdmNHl cPuiVvqyzVEntLUkRm5zfFUaTY3 rKJPufBKaN3KbYH1gGAOallifRO EfMLboDHStQDKyYsTedkVoj1Vbo C6dHVHvBNNhDV81jdTqfoB2rEHn YWJvdmUgdGVzdHMgaXMgcmVndWx xjRYmVOCuBVMtNHBxLXp2eQAri4 VkU9zsfODqgyHxP0GpjZCdUCIGI H2aMKawr6HhzSYtlNQff6DdCMMv WERtrO3tAWEbTM4xHHPzIZdkZJP kgmLagr4xkfDfBPWaNDSuZ8Zfna oxgKlyvdAjLKIiiw8vsgJzIRX2G HRoZSBjbGluaWNhbCBsYWJvcmF0 s3TrWOIhb9YjP0ZwxIFiOCDqhIH iTMV1p2DybP6xZAhuaDStOPZmKE 5vdCBiZWVuIGNsZWFyZWQgYnkgd HbwRMSCXJMib2AlBV1fWKSjoUcl NQYvzA8tz9SjOEKvd99wXODQRQp uIFRoZSBGREEgaGFzIGRldGVybW luZWQgdGhhdCBzdWNoIGNsZWFyY C9rTSWrpeGjkNWzk5SicERguvIs q2LlipGxXTSxSPL1QaAilHRvWFC equAJvOmghT1fhE3eu8GfzK5rWC ufkqZuhCHdNi8yzXExNR2gORHnn xQuOnckZMFnVrGoWOMeFRZxj1Y2 CM6vWGLgwc9noknlqPZxkW9ktAJ cpwRxUZ0lJS4iT6S4gLSaIWGmgh Vsg9rnYNb8hZXeWLMkjOYatAOiJ zhhMYO9PFDfJYJ1suBpcoOfPWXj gLyxcFM5yLUwSNQhRIWqSFJqSN7 4V8Kty6OzL5jrQM90WHJzSHVnKW GrdnHfe3flVZUru8kaVANlyCJrZ 0XlRFYxaCEewdgqTzBsHUU8XIMc MNC1hGLwWEIfQ6QnzCNagSUcfO1 6KT3vgTC7JZ3iQDL0BFiixB9kOs VYkE70tp1zuOP5h1GoTI9wS5SgO VZpa7A3tzHuSBEhNR4ijZOxDFNk IHZhbGlkYXRlZCBvbiBkZWNhbGN gCbdrGJC1vBJejXMvMdVWIRY7lV MxCJEgl1RpHWRuJUAamdFmlkFaY OFiNCM3bAHlMMAolXYuc64cM6q8 WY6bzKcfEQOwvYTbZIJkx0AsfGH lgDy4hAXzXcOhIBlyDFDjWLxuxE u5lDB2ZB0fYGFgN8GhA8augSBzW PKgQNSieCQapk3joCKxjT== [facility] Work Phone: Gross Description b6uyjYOkPTTykZVfGXpu Zel6iNU ah3A2ptdmVN9qdIlhbXn2xSeeWO LzmgB6jDRhVMxoq0jfPVD8f7wze owfIXLpHMwwWj8ahKXivAzyLnEo B2Wtv2LeWPd4hI91TGCxxO2keRB jRFd1KNNmjZLhreBgIxYcKIIdlK WkkVG0WNJsZG5czfvsAZrnECaaP APxnsW9WMQztIIzJ6KoKKXvYW4v kitfKAI5GTqvDAHtXUI2PwRmAOO ii9Urwgy0AwZijDKmMImzdNJeas hqzwPxPXVdE1JsmyIdYDpwEZRwb e6ijYvlAYmtZeZpBCVqImkxj5Ys uQVzSR33ysXkMISvg0KpeNeqcwK bTLOtuFLtYF9jhByswjzlPWRwUO Sur7YxNXOkjy2peL1cWUMws8I0Z NXhcpMfgMRuyMLaceChE6fmVoWd anNimOhtMKZkj47mWY0dQHEoFER cEVUigY1tXDErJVSokQKrmD2iqd SiuoZxvsIvdzAuoIHmxWTsyYA9Q GIzdG9yn49cAWEvw6WozXOoLgHy XHBhcn0= [employer] Work Phone: Pathologist Interpretation Location [facility], [address] [place] [address], [facility] [address], CLIA: [id number]; Joint Commission: HCO [id number]; CAP: [id number] [facility] Phone: Pathology report final diagnosis Narrative q0apvKIpYTUrhDQfDJjeWprcujK aUHErmRSzL5ZekgslOMabVE6vMZ 3abNzlmMRvwSPhXLUxWvAll6pjp 529eFGha8mtXQUDWHdfENSCIAp0 pMoyD63vy2D3QbcoS28veLQhSYD 9HXLhHDOloSOeIUJlIHM9KEXddQ HdQ3vvXJWuHM6cczqlHHmcIVokY VNldDF0DOWgmUHjG2SmPWLfYUfa BWDgtzs8NhSqMg6vxJGyeJyxHBi hEBOgNVGgVHvsATEnNkQuH9IUFZ QYXFpgCF1ZOzTVLHWICA6WT9p4X FxwYXIgLSBDSFJPTklDIElOQUNU XQSHHJoUW6BNAFQYMlyeAqKYJVM PPtDrOp2ZAQzsJXXVLX0APRFCAW SQHwThW1AUHG9vAEYotpvqMRAaW 15UAEUVVXfbAQ7xwEnkFSD3SMwq zROni7bdl4XuB8zvhJmdmZC0WPF yROUae9KoMRHagY7iT91uXPUbc5 70lm2yYK9wMWXnqMFiQFAkGASjd ADcthBdob4rTHKlh0UyCWDkGWKf GOJocwFqDLDxCo3fyG69udhcjDQ yIVRrltLrWZPHDvXIFA8TRKLhCA jLRkJvwqDfp26pYOLwuqUvk6voZ tJHTMdkyUw8JN2icEHlDWQieb1= [facility] Work Phone: [facility] Work Phone: No Panel Informationon 03-09 Atypical Lymphocytes Manual [facility] Bands Manual 8 [facility] Basophils Manual [facility] Blasts Manual [facility] Eosinophils Manual 3 High 0 - 1 [facility] Interpretation and review of laboratory results Abnormal [facility] Lymphocytes Manual 13 [facility] Metamyelocytes Manual 1 [facility] Monocytes Manual 4 [facility] Myelocytes Manual [facility] Neutrophils Manual 70 [facility] Promyelocytes Manual [facility] Unclassified Cells, Manual [facility] 30on 03-08-2024 30 Problem: Pain - Adul t Goal: Verbalizes/displays adequate comfort level or baseline comfort level 03/08/20242245 by Neelima Peng, RN Outcome: Progressing 03/08/20241910 by Neelima Peng, RN Outcome: Progressing Problem: Safety - Adult Goal: Free from fall injury 03/08/20242245 by Neelima Peng, RN Outcome: Progressing 03/08/20241910 by Neelima Peng, RN Outcome: Progressing Normal [facility] 30 The patient is Moder ately Stable - Low risk of patient condition declining or worsening The patient's goals for the shift include admission and pain control The clinical goals for the shift include admission Normal [facility] 30 Problem: Pain - Adul t Goal: [...] and maintained or improved Outcome: Progressing Normal [facility] BASIC METABOLIC PANELon 02-15 Anion gap [Moles/Vol] 6 mmol/L Normal 3-13 [facility] Comment on above: Performed By: #### L [id number] ####Cuprous Chloride Helper: LACY OROSCO ([phone])[facility])[address] [place] [address] Calcium [Mass/Vol] 10.0 mg/dL Normal 8.4-10.4 [facility] Comment on above: Performed By: #### L [id number] ####Cuprous Chloride Helper: LACY OROSCO ([phone])[facility] ([facility])[address] [place] [address] [place] Chloride [Moles/Vol] 103 mmol/L Normal 98-107 [facility] Comment on above: Performed By: #### L [id number] ####Cuprous Chloride Helper: LACY OROSCO ([phone])[facility] ([facility])[address] [place] [address] CO2 [Moles/Vol] 22 mmol/L Normal 22-30 [facility] Comment on above: Performed By: #### L [id number] ####Cuprous Chloride Helper: LACY OROSCO ([phone])[facility] ([facility])[address] [place] [address] Creatinine [Mass/Vol] 2.12 mg/dL High 0.52-1.04 [facility] Comment on above: Performed By: #### L [id number] ####Cuprous Chloride Helper: LACY OROSCO ([phone])[facility] ([facility])[address] [place] [address] [place] GLOMERULAR FILTRATION RATE ML/MIN/1.73 SQ M.PREDICTED 25.4 mL/min/1.73m*2 Low >60.0 [facility] Comment on above: Result Comment: Calc ulation based on the Chronic Kidney Disease Epidemiology Collaboration (CKD-EPI) equation refit without adjustment for race Performed By: #### L [id number] ####Cuprous Chloride Helper: LACY OROSCO ([phone])[facility] ([facility])[address] [place] [address] [place] Glucose [Mass/Vol] 102 mg/dL High 70-100 [facility] Comment on above: Performed By: #### L [id number] ####Cuprous Chloride Helper: LACY OROSCO ([phone])[facility] ([facility])[address] [place] [address] Potassium [Moles/Vol] 3.7 mmol/L Normal 3.5-5.1 [facility] Comment on above: Performed By: #### L [id number] ####Cuprous Chloride Helper: LACY OROSCO ([phone])[facility] ([facility])[address] [place] [address] Sodium [Moles/Vol] 130 mmol/L Low 135-145 [facility] Comment on above: Performed By: #### L [id number] ####Cuprous Chloride Helper: LACY OROSCO ([phone])[facility] ([facility])[address] [place] [address] Urea nitrogen [Mass/Vol] 54 mg/dL High 7-17 [facility] Comment on above: Performed By: #### L [id number] ####Cuprous Chloride Helper: LACY OROSCO ([phone])[facility] ([facility])[address] [place] [address] Basic metabolic 1998 panelon 03-08-2024 Anion gap [Moles/Vol] 6 mmol/L 3 - 13 mmol/L [facility] Calcium [Mass/Vol] 10 mg/dL 8.4 - 10. 4 mg/dL [facility] Chloride [Moles/Vol] 103 mmol/L 98 - 10 7 mmol/L [facility] CO2 [Moles/Vol] 22 mmol/L 22 - 30 mmol/L [facility] Creatinine [Mass/Vol] 2.12 mg/dL High 0.52 - 1.04 mg/dL [facility] GFR/1.73 sq M.predicted (S/P/Bld) [Vol rate/Area] 25.4 mL/min Low - PINF [facility] Comment on above: Calculation based on the Chronic Kidney Disease Epidemiology Collaboration (CKD-EPI) equation refit without adjustment for race Glucose [Mass/Vol] 102 mg/dL High 70 - 100 mg/dL [facility] Interpretation and review of laboratory results Abnormal [facility] Potassium [Moles/Vol] 3.7 mmol/L 3.5 - 5.1 mmol/L [facility] Sodium [Moles/Vol] 130 mmol/L Low 135 - 145 mmol/L [facility] Urea nitrogen [Mass/Vol] 54 mg/dL High 7 - 17 mg/dL [facility] CBC W Auto Differential pane l (Bld)on 03-08-2024 Erythrocyte distribution width (RBC) [Ratio] 15.4 % High 11.5 - 15.0 % [facility] Hematocrit (Bld) [Volume fraction] 34 % Low 35.0 - 47.0 % [facility] Hemoglobin (Bld) [Mass/Vol] 11.1 g/dL Low 11.7 - 16.0 g/dL [facility] Interpretation and review of laboratory results Abnormal [facility] MCH (RBC) [Entitic mass] 25.8 pg Low 26.0 - 34.0 pg [facility] MCHC (RBC) [Mass/Vol] 32.6 % 30.5 - 36.0 % [facility] MCV (RBC) [Entitic vol] 79.1 fL 77.0 - 99.0 fL [facility] Platelet mean volume (Bld) [Entitic vol] 10.5 fL 9.0 - 12.7 fL [facility] Platelets (Bld) [#/Vol] 453 10*3/uL High 140 - 440 10*3/uL [facility] RBC (Bld) [#/Vol] 4.3 10*6/uL 3.80 - 5.20 10*6/uL [facility] WBC (Bld) [#/Vol] 13 10*3/uL High 3.6 - 10.7 10*3/uL [facility] CBC WITH AUTO DIFFERENTIALon 03-08-2024 Erythrocyte distribution width (RBC) [Ratio] 15.4 % High 11.5-15.0 [facility] Comment on above: Performed By: #### L [id number], [id number] ####Cuprous Chloride Helper: LACY OROSCO ([phone])[address] Hematocrit (Bld) [Volume fraction] 34.0 % Low 35.0-47.0 [facility] Comment on above: Performed By: #### L [id number], [id number] ####Cuprous Chloride Helper: LACY OROSCO ([phone])[facility])[address] [place] [address] Hemoglobin (Bld) [Mass/Vol] 11.1 g/dL Low 11.7-16.0 [facility] Comment on above: Performed By: #### L [id number], [id number] ####Cuprous Chloride Helper: LACY OROSCO ([phone])[facility])[address] [place] [address] MCH (RBC) [Entitic mass] 25.8 pg Low 26.0-34.0 [facility] Comment on above: Performed By: #### L [id number], [id number] ####Cuprous Chloride Helper: LACY OROSCO ([phone])[facility])[address] [place] [address] MCHC 32.6 % Normal 30.5-36.0 [facility] Comment on above: Performed By: #### Glory [id number], [id number] ####Cuprous Chloride Helper: LACY OROSCO ([phone])[facility] ([facility])[address] [place] [address] MCV (RBC) [Entitic vol] 79.1 fL Normal 77.0-99.0 [facility] Comment on above: Performed By: #### L [id number], [id number] ####Cuprous Chloride Helper: LACY OROSCO ([phone])[facility])[address] [place] [address] Platelet mean volume (Bld) [Entitic vol] 10.5 fL Normal 9.0-12.7 [facility] Comment on above: Performed By: #### L [id number], [id number] ####Cuprous Chloride Helper: LAYC OROSCO ([phone])[facility])[address] [place] [address] Platelets (Bld) [#/Vol] 453 10*3/uL High 140-440 [facility] Comment on above: Performed By: #### L [id number], [id number] ####Cuprous Chloride Helper: LACY [phone])[facility] ([facility])[address] [place] [address] RBC (Bld) [#/Vol] 4.30 10*6/uL Normal 3.80-5.20 [facility] Comment on above: Performed By: #### Glory [id number], [id number] ####Cuprous Chloride Helper: LACY OROSCO ([phone])[facility])[address] [place] [address] WBC (Bld) [#/Vol] 13.0 10*3/uL High 3.6-10.7 [facility] Comment on above: Performed By: #### Glory QUINN, [id number] ####Cuprous Chloride Helper: LACY OROSCO ([phone])[facility])[address] [place] [address] Laboratory - Chemistry and C hemistry - challengeon 03-08-2024 Sodium (24H U) [Mass/Vol] 70 mmol/L 30 - 90 mmol/L [facility] MANUAL DIFFERENTIALon 2023 BAND NEUTROPHILS TOTAL PER COUNTED LEUKOCYTES BY MANUAL COUNT 3 Normal [facility] Comment on above: Performed By: #### Glory QUINN, [id number] ####Cuprous Chloride Helper: LACY OROSCO ([phone])[facility])[address] [place] [address] BANDS 0.4 10*3/uL High <=0.0 [facility] Comment on above: Performed By: #### Glory QUINN, [id number] ####Cuprous Chloride Helper: LACY OROSCO ([phone])[facility])[address] [place] [address] CELLS COUNTED TOTAL (#) IN BLOOD 100 Normal [facility] Comment on above: Performed By: #### L [id number], [id number] ####Cuprous Chloride Helper: LACY OROSCO ([phone])[facility])[address] [place] [address] DIFFERENTIAL METHOD Manual differential performed Normal [facility] Comment on above: Performed By: #### L [id number], [id number] ####Cuprous Chloride Helper: LACY OROSCO ([phone])[facility])[address] [place] [address] [place] EOSINOPHILS (10*3/UL) IN BLOOD BY MANUAL COUNT 0.4 10*3/uL Normal 0.0-0.5 [facility] Comment on above: Performed By: #### L [id number], [id number] ####Cuprous Chloride Helper: LACY OROSCO ([phone])[facility] ([facility])[address] [place] [address] EOSINOPHILS TOTAL PER COUNTED LEUKOCYTES BY MANUAL COUNT 3 High 0-1 [facility] Comment on above: Performed By: #### L [id number], [id number] ####Cuprous Chloride Helper: LACY OROSCO ([phone])[facility])[address] [place] [address] EOSINOPHILS/100 LEUKOCYTES IN BLOOD BY MANUAL COUNT 3 % Normal 0-6 [facility] Comment on above: Performed By: #### L [id number], [id number] ####Cuprous Chloride Helper: LACY OROSCO ([phone])[facility] ([facility])[address] [place] [address] LEUKOCYTE MORPHOLOGY FINDING IN BLOOD Normal Normal [facility] Comment on above: Performed By: #### L [id number], [id number] ####Cuprous Chloride Helper: LACY OROSCO ([phone])[facility])[address] [place] [address] [place] LEUKOCYTES (10*3/UL) NUCLEATED ERYTHROCYTE ADJUST 13.0 10*3/uL High 3.6-10.7 [facility] Comment on above: Performed By: #### L [id number], [id number] ####Cuprous Chloride Helper: LACY OROSCO ([phone])[facility])[address] [place] [address] [place] LYMPHOCYTES (10*3/UL) IN BLOOD BY MANUAL COUNT 3.1 10*3/uL Normal 1.0-4.3 [facility] Comment on above: Performed By: #### L [id number], [id number] ####Cuprous Chloride Helper: LACY OROSCO ([phone])[facility])[address] [place] [address] [place] LYMPHOCYTES TOTAL PER COUNTED LEUKOCYTES BY MANUAL COUNT 24 Normal [facility] Comment on above: Performed By: #### L [id number], [id number] ####Cuprous Chloride Helper: LACY OROSCO ([phone])[facility] ([facility])[address] [place] [address] [place] LYMPHOCYTES/100 LEUKOCYTES IN BLOOD BY MANUAL COUNT 24 % Normal 15-45 [facility] Comment on above: Performed By: #### L [id number], [id number] ####Cuprous Chloride Helper: LACY OROSCO ([phone])[facility] ([facility])[address] [place] [address] [place] METAMYELOCYTES (10*3/UL) IN BLOOD BY MANUAL COUNT 0.3 10*3/uL High <=0.0 [facility] Comment on above: Performed By: #### L [id number], [id number] ####Cuprous Chloride Helper: LACY OROSCO ([phone])[facility] ([facility])[address] [place] [address] [place] METAMYELOCYTES TOTAL PER COUNTED LEUKOCYTES BY MANUAL COUNT 2 Normal [facility] Comment on above: Performed By: #### L [id number], [id number] ####Cuprous Chloride Helper: LACY OROSCO ([phone])[facility] ([facility])[address] [place] [address] [place] METAMYELOCYTES/100 LEUKOCYTES IN BLOOD BY MANUAL COUNT 2 % High <=0 [facility] Comment on above: Performed By: #### L [id number], [id number] ####Cuprous Chloride Helper: LACY OROSCO ([phone])[facility] ([facility])[address] [place] [address] [place] MONOCYTES (10*3/UL) IN BLOOD BY MANUAL COUNT 1.0 10*3/uL High 0.0-0.9 [facility] Comment on above: Performed By: #### L [id number], [id number] ####Cuprous Chloride Helper: LACY OROSCO ([phone])[facility])[address] [place] [address] [place] MONOCYTES TOTAL PER COUNTED LEUKOCYTES BY MANUAL COUNT 8 Normal [facility] Comment on above: Performed By: #### L [id number], [id number] ####Cuprous Chloride Helper: LACY OROSCO ([phone])[facility] ([facility])[address] [place] [address] [place] MONOCYTES/100 LEUKOCYTES IN BLOOD BY MANUAL COUNT 8 % Normal 5-13 [facility] Comment on above: Performed By: #### L [id number], [id number] ####Cuprous Chloride Helper: LACY OROSCO ([phone])[facility] ([facility])[address] [place] [address] [place] MYELOCYTES (10*3/UL) IN BLOOD BY MANUAL COUNT 0.3 10*3/uL High <=0.0 [facility] Comment on above: Performed By: #### L [id number], [id number] ####Cuprous Chloride Helper: LACY OROSCO ([phone])[facility] ([facility])[address] [place] [address] [place] MYELOCYTES COUNTED BY MANUAL COUNT 2 Normal [facility] Comment on above: Performed By: #### L [id number], [id number] ####Cuprous Chloride Helper: LACY OROSCO ([phone])[facility] ([facility])[address] [place] [address] [place] MYELOCYTES/100 LEUKOCYTES IN BLOOD BY MANUAL COUNT 2 % High <=0 [facility] Comment on above: Performed By: #### L [id number], [id number] ####Cuprous Chloride Helper: LACY OROSCO ([phone])[facility] ([facility])[address] [place] [address] [place] NEUTROPHILS (SEGS+BANDS) (10*3/UL) BY MANUAL COUNT 7.9 10*3/uL High 1.8-7.0 [facility] Comment on above: Performed By: #### L [id number], [id number] ####Cuprous Chloride Helper: LACY OROSCO ([phone])[facility] ([facility])[address] [place] [address] [place] NEUTROPHILS BAND FORM/100 LEUKOCYTES IN BLOOD BY MANUAL COUNT 3 % High <=0 [facility] Comment on above: Performed By: #### L [id number], [id number] ####Cuprous Chloride Helper: LACY OROSCO ([phone])[facility])[address] [place] [address] NEUTROPHILS TOTAL PER COUNTED LEUKOCYTES BY MANUAL COUNT 58 Normal [facility] Comment on above: Performed By: #### L [id number], [id number] ####Cuprous Chloride Helper: LACY OROSCO ([phone])[facility] ([facility])[address] [place] [address] OVALOCYTES PRESENCE IN BLOOD BY LIGHT MICROSCOPY Rare Abnormal (none) [facility] Comment on above: Performed By: #### L [id number], [id number] ####Cuprous Chloride Helper: LACY OROSCO ([phone])[facility])[address] [place] [address] PLATELET MORPHOLOGY IN BLOOD Normal Normal [facility] Comment on above: Performed By: #### L [id number], [id number] ####Cuprous Chloride Helper: LACY OROSCO ([phone])[facility])[address] [place] [address] POIKILOCYTOSIS (PRESENCE) IN BLOOD BY LIGHT MICROSCOPY Rare Abnormal (none) [facility] Comment on above: Performed By: #### L [id number], [id number] ####Cuprous Chloride Helper: LACY OROSCO ([phone])[facility])[address] [place] [address] SEGEMENTED NEUTROPHILS/100 LEUKOCYTES BY MANUAL COUNT 58 % Normal 38-82 [facility] Comment on above: Performed By: #### L [id number], [id number] ####Cuprous Chloride Helper: LACY OROSCO ([phone])[facility])[address] [place] [address] [place] SEGMENTED NEUTROPHILS (10*3/UL)IN BLOOD BY MANUAL COUNT 7.9 10*3/uL High 1.8-7.5 [facility] Comment on above: Performed By: #### L [id number], [id number] ####Cuprous Chloride Helper: LACY OROSCO ([phone])[address] Manual differential performe d Ql (Bld)on 03-08-2024 Band form neutrophils (Bld) [#/Vol] 0.4 10*3/uL High NINF - 0.0 10*3/uL [facility] Band form neutrophils/100 WBC (Bld) 3 % High NINF - 0 % [facility] Bands Manual 3 [facility] Cells Counted Total (Bld) [#] 100 {cells} [facility] Differential Method Manual differential performed [facility] Eosinophils (Bld) [#/Vol] 0.4 10*3/uL 0.0 - 0.5 10*3/uL [facility] Eosinophils Manual 3 High 0 - 1 [facility] Eosinophils/100 WBC (Bld) 3 % 0 - 6 % [facility] Interpretation and review of laboratory results Abnormal [facility] Leukocyte morphology finding Nom (Bld) Normal [facility] Lymphocytes (Bld) [#/Vol] 3.1 10*3/uL 1.0 - 4.3 10*3/uL [facility] Lymphocytes Manual 24 [facility] Lymphocytes/100 WBC (Bld) 24 % 15 - 45 % [facility] Metamyelocytes (Bld) [#/Vol] 0.3 10*3/uL High NINF - 0.0 10*3/uL [facility] Metamyelocytes Manual 2 [facility] Metamyelocytes/100 WBC (Bld) 2 % High NINF - 0 % [facility] Monocytes (Bld) [#/Vol] 1 10*3/uL High 0.0 - 0.9 10*3/uL [facility] Monocytes Manual 8 [facility] Monocytes/100 WBC (Bld) 8 % 5 - 13 % [facility] Myelocytes (Bld) [#/Vol] 0.3 10*3/uL High NINF - 0.0 10*3/uL [facility] Myelocytes Manual 2 [facility] Myelocytes/100 WBC (Bld) 2 % High NINF - 0 % [facility] Neutrophils (Bld) [#/Vol] 7.9 10*3/uL High 1.8 - 7.5 10*3/uL [facility] Neutrophils Manual 58 [facility] Ovalocytes LM Ql (Bld) Rare Abnormal (none) [facility] Platelet morphology finding Nom (Bld) Normal [facility] Poikilocytosis LM Ql (Bld) Rare Abnormal (none) [facility] Segmented neutrophils/100 WBC (Bld) 58 % 38 - 82 % [facility] WBC corrected for nucl RBC (Bld) [#/Vol] 13 10*3/uL High 3.6 - 10.7 10*3/uL [facility] No Panel Informationon 03-08 Interpretation and review of laboratory results Normal [facility] No Panel InformationOrdered By: Jah Galloway on 03-08-2024 Interpretation and review of laboratory results Normal [facility] OSMOLALITY, URINE 423 [facility] Nursing Noteon 03-08-2024 Nursing Note Pt asked if she coul d go to the bathroom by herself. I advised that she is still a high fall risk and we want her to please use the call light for help to get up to the bathroom. Pt verbalized understanding. Normal [facility] OSMOLALITY, URINEon 03-08-20 24 OSMOLALITY, URINE 423 mOsm/kg Normal 300-1000 [facility] Comment on above: Performed By: #### L [id number], [id number] ####Cuprous Chloride Helper: LACY OROSCO ([phone])[facility] ([address] Progress Noteon 03-08-2024 Progress Note ------- Attestation signed by Pepito Steve MD at 03/08/2024 2:49 PM Notes reviewed and plan discussed with the PA. Agree with above note except Any variance is noted below. Pepito Steve MD [facility] [phone] [facility] Nephrology Progress Note Subjective/ 63 [...] fever or chills. No interval changes to [facility]. All interval notes/labs/imaging reviewed. Objective/ Vitals: 03/07/24 [...] sodium chloride 0.9%, sucralfate Data/ Recent Labs 03/06/2452203/07/24 0140 03/08/24 0531 WBC [...] with any questions or concerns. TRUDI Domingo, PAJordanC [facility] Office This note is not finalized until authorized by Attending physician. Normal [facility] SODIUM, URINE, RANDOMon 02-15 Sodium (U) [Moles/Vol] 70 mmol/L Normal 30-90 [facility] Comment on above: Performed By: #### L [id number], [id number] ####Cuprous Chloride Helper: LACY OROSCO ([phone])[facility] ([facility] 30on 03-07-2024 30 Problem: Pain - Adul [...] and maintained or improved Outcome: Progressing Normal [facility] 30 Problem: Pain - Adul t Goal: [...] and maintained or improved Outcome: Progressing Normal [facility] 36on 03-07-2024 36 Patient evaluated inpatient, needs repeat EGD in 8 weeks. Not established, patient lives in [place], please call and see if she would like to follow up with us and if not send records to her preferred follow up physician. Normal [facility] BASIC METABOLIC PANELon 10-2 -2023 Anion gap [Moles/Vol] 13 mmol/L Normal 3-13 [facility] Comment on above: Performed By: #### L AB15 ####Cuprous Chloride Helper: LACY OROSCO ([phone])[facility])[address] [place] [address] Calcium [Mass/Vol] 10.6 mg/dL High 8.4-10.4 [facility] Comment on above: Performed By: #### L AB15 ####Cuprous Chloride Helper: LACY OROSCO ([phone])[facility] ([facility])[address] [place] [address] Chloride [Moles/Vol] 105 mmol/L Normal 98-107 [facility] Comment on above: Performed By: #### L AB15 ####Cuprous Chloride Helper: LACY OROSCO ([phone])[facility] ([facility])[address] [place] [address] CO2 [Moles/Vol] 15 mmol/L Low 22-30 [facility] Comment on above: Performed By: #### L AB15 ####Cuprous Chloride Helper: LACY OROSCO ([phone])[facility])[address] [place] [address] Creatinine [Mass/Vol] 2.35 mg/dL High 0.52-1.04 [facility] Comment on above: Performed By: #### L AB15 ####Cuprous Chloride Helper: LACY OROSCO ([phone])[facility])[address] [place] [address] GLOMERULAR FILTRATION RATE ML/MIN/1.73 SQ M.PREDICTED 22.5 mL/min/1.73m*2 Low >60.0 [facility] Comment on above: Result Comment: Calc ulation based on the Chronic Kidney Disease Epidemiology Collaboration (CKD-EPI) equation refit without adjustment for race Performed By: #### L [id number] ####Cuprous Chloride Helper: LACY OROSCO ([phone])[facility] ([facility])[address] [place] [address] Glucose [Mass/Vol] 117 mg/dL High 70-100 [facility] Comment on above: Performed By: #### L AB15 ####Cuprous Chloride Helper: LACY OROSCO ([phone])[facility] ([facility])[address] [place] [address] Potassium [Moles/Vol] 4.0 mmol/L Normal 3.5-5.1 [facility] Comment on above: Performed By: #### L AB15 ####Cuprous Chloride Helper: LACY OROSCO ([phone])[facility])[address] [place] [address] Sodium [Moles/Vol] 133 mmol/L Low 135-145 [facility] Comment on above: Performed By: #### L AB15 ####Cuprous Chloride Helper: LACY OROSCO ([phone])[facility])[address] [place] [address] Urea nitrogen [Mass/Vol] 55 mg/dL High 7-17 [facility] Comment on above: Performed By: #### L AB15 ####Cuprous Chloride Helper: LACY OROSCO ([phone])[facility] ([facility])[address] [place] [address] Basic metabolic 1998 panelon 03-07-2024 Anion gap [Moles/Vol] 13 mmol/L 3 - 13 mmol/L [facility] Calcium [Mass/Vol] 10.6 mg/dL High 8.4 - 10. 4 mg/dL [facility] Chloride [Moles/Vol] 105 mmol/L 98 - 10 7 mmol/L [facility] CO2 [Moles/Vol] 15 mmol/L Low 22 - 30 mmol/L [facility] Creatinine [Mass/Vol] 2.35 mg/dL High 0.52 - 1.04 mg/dL [facility] GFR/1.73 sq M.predicted (S/P/Bld) [Vol rate/Area] 22.5 mL/min Low - PINF [facility] Comment on above: Calculation based on the Chronic Kidney Disease Epidemiology Collaboration (CKD-EPI) equation refit without adjustment for race Glucose [Mass/Vol] 117 mg/dL High 70 - 100 mg/dL [facility] Interpretation and review of laboratory results Abnormal [facility] Potassium [Moles/Vol] 4 mmol/L 3.5 - 5.1 mmol/L [facility] Sodium [Moles/Vol] 133 mmol/L Low 135 - 145 mmol/L [facility] Urea nitrogen [Mass/Vol] 55 mg/dL High 7 - 17 mg/dL [facility] CBC W Auto Differential pane l (Bld)Ordered By: Dwayne Gibson on 03-07-2024 Erythrocyte distribution width (RBC) [Ratio] 15.4 % High 11.5 - 15.0 % [facility] Hematocrit (Bld) [Volume fraction] 40.2 % 35.0 - 47.0 % [facility] Hemoglobin (Bld) [Mass/Vol] 12.9 g/dL 11.7 - 16.0 g/dL [facility] Interpretation and review of laboratory results Abnormal [facility] MCH (RBC) [Entitic mass] 25.9 pg Low 26.0 - 34.0 pg [facility] MCHC (RBC) [Mass/Vol] 32.1 % 30.5 - 36.0 % [facility] MCV (RBC) [Entitic vol] 80.7 fL 77.0 - 99.0 fL [facility] Platelet mean volume (Bld) [Entitic vol] 11.3 fL 9.0 - 12.7 fL [facility] Platelets (Bld) [#/Vol] 548 10*3/uL High 140 - 440 10*3/uL [facility] RBC (Bld) [#/Vol] 4.98 10*6/uL 3.80 - 5.20 10*6/uL [facility] WBC (Bld) [#/Vol] 19 10*3/uL High 3.6 - 10.7 10*3/uL [facility] CBC WITH AUTO DIFFERENTIALon 03-07-2024 Erythrocyte distribution width (RBC) [Ratio] 15.4 % High 11.5-15.0 [facility] Comment on above: Performed By: #### L [id number], [id number] ####Cuprous Chloride Helper: LACY OROSCO ([phone])[facility] ([facility])[address] [place] [address] [place] Hematocrit (Bld) [Volume fraction] 40.2 % Normal 35.0-47.0 [facility] Comment on above: Performed By: #### L [id number], [id number] ####Cuprous Chloride Helper: LACY OROSCO ([phone])[facility])[address] [place] [address] Hemoglobin (Bld) [Mass/Vol] 12.9 g/dL Normal 11.7-16.0 [facility] Comment on above: Performed By: #### L [id number], [id number] ####Cuprous Chloride Helper: LACY OROSCO ([phone])[facility])[address] [place] [address] MCH (RBC) [Entitic mass] 25.9 pg Low 26.0-34.0 [facility] Comment on above: Performed By: #### L [id number], [id number] ####Cuprous Chloride Helper: LACY OROSCO ([phone])[facility])[address] [place] [address] MCHC 32.1 % Normal 30.5-36.0 [facility] Comment on above: Performed By: #### L [id number], [id number] ####Cuprous Chloride Helper: LACY OROSCO ([phone])[facility])[address] [place] [address] MCV (RBC) [Entitic vol] 80.7 fL Normal 77.0-99.0 [facility] Comment on above: Performed By: #### L [id number], [id number] ####Cuprous Chloride Helper: LACY OROSCO ([phone])[facility])[address] [place] [address] Platelet mean volume (Bld) [Entitic vol] 11.3 fL Normal 9.0-12.7 [facility] Comment on above: Performed By: #### L [id number], [id number] ####Cuprous Chloride Helper: LACY OROSCO ([phone])[facility])[address] [place] [address] Platelets (Bld) [#/Vol] 548 10*3/uL High 140-440 [facility] Comment on above: Performed By: #### L [id number], [id number] ####Cuprous Chloride Helper: LACY OROSCO ([phone])[facility] ([facility])[address] [place] [address] RBC (Bld) [#/Vol] 4.98 10*6/uL Normal 3.80-5.20 [facility] Comment on above: Performed By: #### L [id number], [id number] ####Cuprous Chloride Helper: LACY OROSCO ([phone])[facility] ([facility])[address] [place] [address] WBC (Bld) [#/Vol] 19.0 10*3/uL High 3.6-10.7 [facility] Comment on above: Performed By: #### L [id number], [id number] ####Cuprous Chloride Helper: LACY OROSCO ([phone])[facility] ([facility])[address] [place] [address] Laboratory - Hematology and Cell countson 03-07-2024 [...] % 0 - 2 % [facility] [place] cells LM Ql (Bld) Moderate Abnormal (none) [facility] [place] cells LM Ql (Bld) Rare Abnormal (none) [facility] Lymphocytes (Bld) [#/Vol] 2.5 10*3/uL 1.0 - 4.3 10*3/uL [facility] Lymphocytes/100 WBC (Bld) 13 % Low 15 - 45 % [facility] Macrocytes Ql (Bld) Slight Abnormal (none) [facility] Microcytes Ql (Bld) Slight Abnormal (none) [facility] Monocytes (Bld) [#/Vol] 1 10*3/uL High 0.0 - 0.9 10*3/uL [facility] Monocytes/100 WBC (Bld) 5 % 5 - 13 % [facility] Myelocytes (Bld) [#/Vol] 0.2 10*3/uL High NINF - 0.0 10*3/uL [facility] Myelocytes/100 WBC (Bld) 1 % High NINF - 0 % [facility] Neutrophils (Bld) [#/Vol] 15.4 10*3/uL High 1.8 - 7.5 10*3/uL [facility] Poikilocytosis LM Ql (Bld) Moderate Abnormal (none) [facility] Polychromasia LM Ql (Bld) Slight Abnormal (none) [facility] RBC morphology finding Nom (Bld) abnormal [facility] Segmented neutrophils/100 WBC (Bld) 75 % 38 - 82 % [facility] MANUAL DIFFERENTIAL (CELLAVI DARIUSZ)on 03-07-2024 ACANTHOCYTES (PRESENCE) IN BLOOD BY LIGHT MICROSCOPY Rare Abnormal (none) [facility] Comment on above: Performed By: #### L [id number], [id number] ####Cuprous Chloride Helper: LACY OROSCO ([phone])[address] ANISOCYTOSIS PRESENCE IN BLOOD BY LIGHT MICROSCOPY Slight Abnormal (none) [facility] Comment on above: Performed By: #### L [id number], [id number] ####Cuprous Chloride Helper: LACY OROSCO ([phone])[address] BAND NEUTROPHILS TOTAL PER COUNTED LEUKOCYTES BY MANUAL COUNT 6 Normal [facility] Comment on above: Performed By: #### L [id number], [id number] ####Cuprous Chloride Helper: LACY OROSCO ([phone])[address] BANDS (10*3/UL) IN BLOOD-CELLAVISION 1.1 10*3/uL High <=0.0 [facility] Comment on above: Performed By: #### L [id number], [id number] ####Cuprous Chloride Helper: LACY OROSCO ([phone])[facility] ([facility])[address] [place] [address] [place] BASOPHILS (10*3/UL) IN BLOOD-CELLAVISION 0.2 10*3/uL Normal 0.0-0.2 [facility] Comment on above: Performed By: #### L [id number], [id number] ####Cuprous Chloride Helper: LACY OROSCO ([phone])[facility] ([facility])[address] [place] [address] [place] BASOPHILS TOTAL PER COUNTED LEUKOCYTES BY MANUAL COUNT 1 Normal [facility] Comment on above: Performed By: #### L [id number], [id number] ####Cuprous Chloride Helper: LACY OROSCO ([phone])[facility] ([facility])[address] [place] [address] [place] BASOPHILS/100 LEUKOCYTES IN BLOOD-CELLAVISION 1 % Normal 0-2 [facility] Comment on above: Performed By: #### L [id number], [id number] ####Cuprous Chloride Helper: LACY OROSCO ([phone])[facility] ([facility])[address] [place] [address] [place] BLASTS TOTAL PER COUNTED LEUKOCYTES BY MANUAL COUNT Normal [facility] Comment on above: Performed By: #### L [id number], [id number] ####Cuprous Chloride Helper: LACY OROSCO ([phone])[facility] ([facility])[address] [place] [address] [place] MAGO CELLS PRESENCE IN BLOOD BY LIGHT MICROSCOPY Moderate Abnormal (none) [facility] Comment on above: Performed By: #### L [id number], [id number] ####Cuprous Chloride Helper: LACY OROSCO ([phone])[facility] ([facility])[address] [place] [address] [place] EOSINOPHILS TOTAL PER COUNTED LEUKOCYTES BY MANUAL COUNT Normal [facility] Comment on above: Performed By: #### L [id number], [id number] ####Cuprous Chloride Helper: LACY OROSCO ([phone])[facility] ([facility])[address] [place] [address] [place] LYMPHOCYTES (10*3/UL) IN BLOOD-CELLAVISION 2.5 10*3/uL Normal 1.0-4.3 [facility] Comment on above: Performed By: #### L [id number], [id number] ####Cuprous Chloride Helper: LACY OROSCO ([phone])[facility] ([facility])[address] [place] [address] [place] LYMPHOCYTES TOTAL PER COUNTED LEUKOCYTES BY MANUAL COUNT 13 Normal [facility] Comment on above: Performed By: #### L [id number], [id number] ####Cuprous Chloride Helper: LACY OROSCO ([phone])[facility])[address] [place] [address] [place] LYMPHOCYTES/100 LEUKOCYTES IN BLOOD-CELLAVISION 13 % Low 15-45 [facility] Comment on above: Performed By: #### L [id number], [id number] ####Cuprous Chloride Helper: LACY OROSCO ([phone])[facility] ([facility])[address] [place] [address] [place] MACROCYTES (PRESENCE) IN BLOOD BY LIGHT MICROSCOPY Slight Abnormal (none) [facility] Comment on above: Performed By: #### L [id number], [id number] ####Cuprous Chloride Helper: LACY OROSCO ([phone])[facility] ([facility])[address] [place] [address] [place] METAMYELOCYTES TOTAL PER COUNTED LEUKOCYTES BY MANUAL COUNT Normal [facility] Comment on above: Performed By: #### L [id number], [id number] ####Cuprous Chloride Helper: LACY OROSCO ([phone])[facility] ([facility])[address] [place] [address] [place] MICROCYTES (PRESENCE) IN BLOOD BY LIGHT MICROSCOPY Slight Abnormal (none) [facility] Comment on above: Performed By: #### L [id number], [id number] ####Cuprous Chloride Helper: LACY OROSCO ([phone])[facility] ([facility])[address] [place] [address] [place] MONOCYTES (10*3/UL) IN BLOOD-CELLAVISION 1.0 10*3/uL High 0.0-0.9 [facility] Comment on above: Performed By: #### Glory [id number], [id number] ####Cuprous Chloride Helper: LACY OROSCO ([phone])[facility] ([facility])[address] [place] [address] [place] MONOCYTES TOTAL PER COUNTED LEUKOCYTES BY MANUAL COUNT 5 Normal [facility] Comment on above: Performed By: #### Glory [id number], [id number] ####Cuprous Chloride Helper: LACY OROSCO ([phone])[facility] ([facility])[address] [place] [address] [place] MONOCYTES/100 LEUKOCYTES IN BLOOD-SARIKA 5 % Normal 5-13 [facility] Comment on above: Performed By: #### Glory [id number], [id number] ####Cuprous Chloride Helper: LACY OROSCO ([phone])[facility] ([facility])[address] [place] [address] [place] MYELOCYTES (10*3/UL) IN BLOOD-CELLAVISION 0.2 10*3/uL High <=0.0 [facility] Comment on above: Performed By: #### Glory [id number], [id number] ####Cuprous Chloride Helper: LACY OROSCO ([phone])[facility] [place] [address] [place] MYELOCYTES COUNTED BY MANUAL COUNT 1 Normal [facility] Comment on above: Performed By: #### Glory [id number], [id number] ####Cuprous Chloride Helper: LACY OROSCO ([phone])[facility] [place] [address] [place] MYELOCYTES/100 LEUKOCYTES IN BLOOD-CELLAVISION 1 % High <=0 [facility] Comment on above: Performed By: #### L [id number], [id number] ####Cuprous Chloride Helper: LACY OROSCO ([phone])[facility] ([facility])[address] [place] [address] [place] NEUTROPHILS BAND FORM/100 LEUKOCYTES IN BLOOD-CELLAVISI 6 % High <=0 [facility] Comment on above: Performed By: #### L [id number], [id number] ####Cuprous Chloride Helper: LACY OROSCO ([phone])[facility] ([facility])[address] [place] [address] [place] NEUTROPHILS TOTAL PER COUNTED LEUKOCYTES BY MANUAL COUNT 76 Normal [facility] Comment on above: Performed By: #### L [id number], [id number] ####Cuprous Chloride Helper: LACY OROSCO ([phone])[facility] ([facility])[address] [place] [address] POIKILOCYTOSIS (PRESENCE) IN BLOOD BY LIGHT MICROSCOPY Moderate Abnormal (none) [facility] Comment on above: Performed By: #### L [id number], [id number] ####Cuprous Chloride Helper: LACY OROSCO ([phone])[facility] ([facility])[address] [place] [address] POLYCHROMASIA IN BLOOD BY LIGHT MICROSCOPY Slight Abnormal (none) [facility] Comment on above: Performed By: #### L [id number], [id number] ####Cuprous Chloride Helper: LACY OROSCO ([phone])[facility] ([facility])[address] [place] [address] PROMYELOCYTES TOTAL PER COUNTED LEUKOCYTES BY MANUAL COUNT Normal [facility] Comment on above: Performed By: #### L [id number], [id number] ####Cuprous Chloride Helper: LACY OROSCO ([phone])[facility] ([facility])[address] [place] [address] [place] RBC MORPHOLOGY IN BLOOD abnormal Normal [facility] Comment on above: Performed By: #### L [id number], [id number] ####Cuprous Chloride Helper: LACY OROSCO ([phone])[facility] ([facility])[address] [place] [address] [place] SEGMENTED NEUTROPHILS (10*3/UL) IN BLOOD-CELLAVISION 15.4 10*3/uL High 1.8-7.5 [facility] Comment on above: Performed By: #### L [id number], [id number] ####Cuprous Chloride Helper: LACY OROSCO ([phone])[facility] ([facility])[address] [place] [address] SEGMENTED NEUTROPHILS/100 LEUKOCYTES-CE 75 % Normal 38-82 [facility] Comment on above: Performed By: #### L [id number], [id number] ####Cuprous Chloride Helper: LACY OROSCO ([phone])[facility])[address] [place] [address] UNCLASSIFIED CELLS TOTAL PER COUNTED LEUKOCYTES BY MANUAL COUNT Normal [facility] Comment on above: Performed By: #### L [id number], [id number] ####Cuprous Chloride Helper: LACY OROSCO ([phone])[facility] ([facility])[address] [place] [address] VARIANT LYMPHOCYTES TOTAL PER COUNTED LEUKOCYTES BY MANUAL COUNT Normal [facility] Comment on above: Performed By: #### L [id number], [id number] ####Cuprous Chloride Helper: LACY OROSCO ([phone])[facility] ([facility])[address] [place] [address] No Panel Informationon 03-07 Atypical Lymphocytes Manual [facility] Bands Manual 6 [facility] Basophils Manual 1 [facility] Blasts Manual [facility] Eosinophils Manual [facility] Interpretation and review of laboratory results Abnormal [facility] Lymphocytes Manual 13 [facility] Metamyelocytes Manual [facility] Monocytes Manual 5 [facility] Myelocytes Manual 1 [facility] Neutrophils Manual 76 [facility] Promyelocytes Manual [facility] Unclassified Cells, Manual [facility] Progress Noteon 03-07-2024 Progress Note NEUROLOGY FOLLOW UP NOTE - Neurology Inpatient Service Patient Name: Eren Merchant Patient : 1960 Acct: [id number] Date of Admission: 03/04/2024 Room/Bed: [facility] A PCP: Priyanka Smith 03/07/2024 Subjective: The [...] recent episodes which prompted her transfer to [facility] for further workup. On 02/26/24, patient was talking to her dad on the phone. The next thing she remembers is lying on the ground. She believes she had LOC but does not know duration. Estimates less than one minute. She had another episode while at the urologist's office on 03/03/24. She walked up to child care center assistant director desk, all of a sudden both arms [...] by mouth Nightly. AVS from 03/03 from [facility] with Dr. Benitez states: discontinue the elavil [...] Provider, Current Ho (more content not included)... [facility] 36on 03-06-2024 36 Per aCitlin, sent in error. Will disregard. TY Normal [facility] 36 Patient to have repe at LFTs in 1 week as ordered by primary team during inpatient stay. Please schedule patient for hospital follow up for abdominal pain and elevated LFTs. Normal [facility] BASIC METABOLIC PANELon 10-2 Anion gap [Moles/Vol] 11 mmol/L Normal 3-13 [facility] Comment on above: Performed By: #### L [id number] ####Cuprous Chloride Helper: LACY OROSCO ([phone])[facility] ([facility])[address] [place] [address] Calcium [Mass/Vol] 10.7 mg/dL High 8.4-10.4 [facility] Comment on above: Performed By: #### L [id number] ####Cuprous Chloride Helper: LACY OROSCO ([phone])[facility] ([facility])[address] [place] [address] Chloride [Moles/Vol] 105 mmol/L Normal 98-107 [facility] Comment on above: Performed By: #### L [id number] ####Cuprous Chloride Helper: LACY OROSCO ([phone])[facility] ([facility])[address] [place] [address] CO2 [Moles/Vol] 16 mmol/L Low 22-30 [facility] Comment on above: Performed By: #### L [id number] ####Cuprous Chloride Helper: LACY OROSCO ([phone])[facility] ([facility])[address] [place] [address] Creatinine [Mass/Vol] 2.42 mg/dL High 0.52-1.04 [facility] Comment on above: Performed By: #### L [id number] ####Cuprous Chloride Helper: LACY OROSCO ([phone])[facility])[address] [place] [address] GLOMERULAR FILTRATION RATE ML/MIN/1.73 SQ M.PREDICTED 21.7 mL/min/1.73m*2 Low >60.0 [facility] Comment on above: Result Comment: Calc ulation based on the Chronic Kidney Disease Epidemiology Collaboration (CKD-EPI) equation refit without adjustment for race Performed By: #### L [id number] ####Cuprous Chloride Helper: LACY OROSCO ([phone])[facility] ([facility])[address] [place] [address] [place] Glucose [Mass/Vol] 139 mg/dL High 70-100 [facility] Comment on above: Performed By: #### L [id number] ####Cuprous Chloride Helper: LACY OROSCO ([phone])[facility] ([facility])[address] [place] [address] Potassium [Moles/Vol] 4.5 mmol/L Normal 3.5-5.1 [facility] Comment on above: Performed By: #### L [id number] ####Cuprous Chloride Helper: LACY OROSCO ([phone])[facility] [place] [address] Sodium [Moles/Vol] 132 mmol/L Low 135-145 [facility] Comment on above: Performed By: #### L [id number] ####Cuprous Chloride Helper: LACY OROSCO ([phone])[facility] ([facility])[address] [place] [address] Urea nitrogen [Mass/Vol] 60 mg/dL High 7-17 [facility] Comment on above: Performed By: #### L [id number] ####Cuprous Chloride Helper: LACY OROSCO ([phone])[facility] ([facility])[address] [place] [address] Bacteria identified Cx Nom ( U)Ordered By: Suresh Russo on 03-06-2024 Interpretation and review of laboratory results Normal [facility] Basic metabolic 1998 panelon 03-06-2024 Anion gap [Moles/Vol] 11 mmol/L 3 - 13 mmol/L [facility] Calcium [Mass/Vol] 10.7 mg/dL High 8.4 - 10. 4 mg/dL [facility] Chloride [Moles/Vol] 105 mmol/L 98 - 10 7 mmol/L [facility] CO2 [Moles/Vol] 16 mmol/L Low 22 - 30 mmol/L [facility] Creatinine [Mass/Vol] 2.42 mg/dL High 0.52 - 1.04 mg/dL [facility] GFR/1.73 sq M.predicted (S/P/Bld) [Vol rate/Area] 21.7 mL/min Low - PINF [facility] Comment on above: Calculation based on the Chronic Kidney Disease Epidemiology Collaboration (CKD-EPI) equation refit without adjustment for race Glucose [Mass/Vol] 139 mg/dL High 70 - 100 mg/dL [facility] Interpretation and review of laboratory results Abnormal [facility] Potassium [Moles/Vol] 4.5 mmol/L 3.5 - 5.1 mmol/L [facility] Sodium [Moles/Vol] 132 mmol/L Low 135 - 145 mmol/L [facility] Urea nitrogen [Mass/Vol] 60 mg/dL High 7 - 17 mg/dL [facility] CARECOORDon 03-06-2024 [facility] Managment [facility] al Assessment Date: 03/06/2024 Patient Name: Eren Merchant : 1960 Patient Information Source of Information: Patient Cognition/Language: WFL - Within Functional Limits Permission given to speak with patient help desk representative/caregiver as indicated: Yes Confirmation of Payer with patient/family: Yes Payer Name: [place] Medicare : No Confirmation of Primary Care [...] Prescription Coverage: Yes Pharmacy Used: [facility] Medication Management: Independent Transportation/Shopping: Independent Transportation [...] follow as needed. Lola Howe RN Normal [facility] CBC W Auto Differential pane l (Bld)on 03-06-2024 Basophils (Bld) [#/Vol] 0 10*3/uL 0.0 - 0.2 10*3/uL [facility] Basophils/100 WBC (Bld) 0.3 % 0.0 - 2.0 % [facility] Eosinophils (Bld) [#/Vol] 0 10*3/uL 0.0 - 0.5 10*3/uL [facility] Eosinophils/100 WBC (Bld) 0.1 % 0.0 - 6.0 % [facility] Erythrocyte distribution width (RBC) [Ratio] 15.2 % High 11.5 - 15.0 % [facility] Hematocrit (Bld) [Volume fraction] 36.8 % 35.0 - 47.0 % [facility] Hemoglobin (Bld) [Mass/Vol] 12.2 g/dL 11.7 - 16.0 g/dL [facility] Immature granulocytes (Bld) [#/Vol] 0.3 10*3/uL High NINF - 0.1 10*3/uL [facility] Immature granulocytes/100 WBC (Bld) 2.5 % High 0.0 - 2.0 % [facility] Interpretation and review of laboratory results Abnormal [facility] Lymphocytes (Bld) [#/Vol] 1.4 10*3/uL 1.0 - 4.3 10*3/uL [facility] Lymphocytes/100 WBC (Bld) 12.1 % Low 15.0 - 45.0 % [facility] MCH (RBC) [Entitic mass] 25.8 pg Low 26.0 - 34.0 pg [facility] MCHC (RBC) [Mass/Vol] 33.2 % 30.5 - 36.0 % [facility] MCV (RBC) [Entitic vol] 77.8 fL 77.0 - 99.0 fL [facility] Monocytes (Bld) [#/Vol] 0.4 10*3/uL 0.0 - 0.9 10*3/uL [facility] Monocytes/100 WBC (Bld) 3.8 % Low 5.0 - 13.0 % [facility] Neutrophils (Bld) [#/Vol] 9.1 10*3/uL High 1.8 - 7.5 10*3/uL [facility] Neutrophils/100 WBC (Bld) 81.2 % 38.0 - 82.0 % [facility] Nucleated RBC/100 WBC (Bld) [Ratio] 0 % [facility] Platelet mean volume (Bld) [Entitic vol] 10.3 fL 9.0 - 12.7 fL [facility] Platelets (Bld) [#/Vol] 462 10*3/uL High 140 - 440 10*3/uL [facility] RBC (Bld) [#/Vol] 4.73 10*6/uL 3.80 - 5.20 10*6/uL [facility] WBC (Bld) [#/Vol] 11.2 10*3/uL High 3.6 - 10.7 10*3/uL [facility] CBC W/Diff, Automatedon 02-15 PATH REV Reviewed Normal [facility] Comment on above: Result Comment: Neut rophilic leukocytosis. MICROCYTOSIS Thrombocytosis. Clinical correlation necessary. Sammy Szymanski M.D. 03/06/24 AMENDED REPORT 03/06/24 1101 PATH REV previously reported as: September Performed By: #### L 500.2500, L503.6620, L100.0100, L501.5200, L501.5425, L501.9520, L300.8000 ####[facility] [id number] [place], [address] CBC WITH AUTO DIFFERENTIALon 03-06-2024 Basophils (Bld) [#/Vol] 0.0 10*3/uL Normal 0.0-0.2 [facility] Comment on above: Performed By: #### L [id number] ####Cuprous Chloride Helper: LACY OROSCO ([phone])[facility])[address] [place] [address] Basophils/100 WBC (Bld) 0.3 % Normal 0.0-2.0 [facility] Comment on above: Performed By: #### L [id number] ####Cuprous Chloride Helper: LACY OROSCO ([phone])[facility])[address] [place] [address] Eosinophils (Bld) [#/Vol] 0.0 10*3/uL Normal 0.0-0.5 [facility] Comment on above: Performed By: #### L [id number] ####Cuprous Chloride Helper: LACY OROSCO ([phone])[facility])[address] [place] [address] Eosinophils/100 WBC (Bld) 0.1 % Normal 0.0-6.0 [facility] Comment on above: Performed By: #### L [id number] ####Cuprous Chloride Helper: LACY OROSCO ([phone])[facility])[address] [place] [address] Erythrocyte distribution width (RBC) [Ratio] 15.2 % High 11.5-15.0 [facility] Comment on above: Performed By: #### L [id number] ####Cuprous Chloride Helper: LACY OROSCO ([phone])[address] Hematocrit (Bld) [Volume fraction] 36.8 % Normal 35.0-47.0 [facility] Comment on above: Performed By: #### L [id number] ####Cuprous Chloride Helper: LACY OROSCO ([phone])[address] Hemoglobin (Bld) [Mass/Vol] 12.2 g/dL Normal 11.7-16.0 [facility] Comment on above: Performed By: #### L [id number] ####Cuprous Chloride Helper: LACY [phone])[facility])[address] [place] [address] IMMATURE GRANS % 2.5 % High 0.0-2.0 [facility] Comment on above: Performed By: #### L [id number] ####Cuprous Chloride Helper: LACY OROSCO ([phone])[facility])[address] [place] [address] IMMATURE GRANS ABSOLUTE 0.3 10*3/uL High <0.1 [facility] Comment on above: Performed By: #### L [id number] ####Cuprous Chloride Helper: LACY OROSCO ([phone])[facility])[address] [place] [address] Lymphocytes (Bld) [#/Vol] 1.4 10*3/uL Normal 1.0-4.3 [facility] Comment on above: Performed By: #### L [id number] ####Cuprous Chloride Helper: LACY OROSCO ([phone])[facility])[address] [place] [address] Lymphocytes/100 WBC (Bld) 12.1 % Low 15.0-45.0 [facility] Comment on above: Performed By: #### L [id number] ####Cuprous Chloride Helper: LACY OROSCO ([phone])[facility])[address] [place] [address] MCH (RBC) [Entitic mass] 25.8 pg Low 26.0-34.0 [facility] Comment on above: Performed By: #### L [id number] ####Cuprous Chloride Helper: LACY OROSCO ([phone])[facility])[address] [place] [address] MCHC 33.2 % Normal 30.5-36.0 [facility] Comment on above: Performed By: #### L [id number] ####Cuprous Chloride Helper: LACY OROSCO ([phone])[facility])[address] [place] [address] MCV (RBC) [Entitic vol] 77.8 fL Normal 77.0-99.0 [facility] Comment on above: Performed By: #### L [id number] ####Cuprous Chloride Helper: LACY OROSCO ([phone])[facility])[address] [place] [address] Monocytes (Bld) [#/Vol] 0.4 10*3/uL Normal 0.0-0.9 [facility] Comment on above: Performed By: #### L [id number] ####Cuprous Chloride Helper: LACY OROSCO ([phone])[facility] ([facility])[address] [place] [address] Monocytes/100 WBC (Bld) 3.8 % Low 5.0-13.0 [facility] Comment on above: Performed By: #### L [id number] ####Cuprous Chloride Helper: LACY OROSCO ([phone])[facility])[address] [place] [address] NEUTROPHILS ABSOLUTE 9.1 10*3/uL High 1.8-7.5 [facility] Comment on above: Performed By: #### L [id number] ####Cuprous Chloride Helper: LACY OROSCO ([phone])[facility])[address] [place] [address] Neutrophils/100 WBC (Bld) 81.2 % Normal 38.0-82.0 [facility] Comment on above: Performed By: #### L [id number] ####Cuprous Chloride Helper: LACY OROSCO ([phone])[facility])[address] [place] [address] NRBC 0.0 /100 WBCs Normal 0.0-2.0 [facility] Comment on above: Performed By: #### L [id number] ####Cuprous Chloride Helper: LACY OROSCO ([phone])[facility])[address] [place] [address] Platelet mean volume (Bld) [Entitic vol] 10.3 fL Normal 9.0-12.7 [facility] Comment on above: Performed By: #### L [id number] ####Cuprous Chloride Helper: LACY OROSCO ([phone])[facility] [place] [address] Platelets (Bld) [#/Vol] 462 10*3/uL High 140-440 [facility] Comment on above: Performed By: #### L [id number] ####Cuprous Chloride Helper: LACY OROSCO ([phone])[facility] [place] [address] RBC (Bld) [#/Vol] 4.73 10*6/uL Normal 3.80-5.20 [facility] Comment on above: Performed By: #### L [id number] ####Cuprous Chloride Helper: LACY OROSCO ([phone])[facility] [place] [address] WBC (Bld) [#/Vol] 11.2 10*3/uL High 3.6-10.7 [facility] Comment on above: Performed By: #### L [id number] ####Cuprous Chloride Helper: LACY OROSCO ([phone])[facility] ([facility])[address] [place] [address] IDNon 03-06-2024 IDN Problem: Pain - Adul [...] and maintained or improved Outcome: Progressing Normal [facility] IDN Problem: Pain - Adul t Goal: [...] and maintained or improved Outcome: Progressing Normal [facility] Laboratory - Microbiology an d Antimicrobial susceptibilityOrdered By: Suresh Russo on 03-06-2024 Bacteria identified Cx Nom (U) No growth (<1,000 CFU/mL) [facility] MR Brain WO contraston 03-06 1. Negative unenhanced MR scan of the brain except for minimal T2 hyperintensities of left frontal lobe probably due to minimal microangiopathic change. Report Dictated on Electronically Signed By: Phong Sandoval MD Electronically Signed Date/Time: 03/06/2024 11:48 PM EDT [facility] Patient Name: EREN BUSTILLO : 1960 [...] no mucosal thickening in the paranasal sinuses. [facility] Phong Sandoval MD - 03/06/2024 Patient Name: [...] Electronically Signed Date/Time: 03/06/2024 11:48 PM EDT [facility] MR Brain WO contrastOrdered By: Phong Sandoval on 03-06-2024 [facility] Work Phone: MRA Head vessels WO contrast on 03-06-2024 1. Negative MR angiogram of the intracranial vessels. Report Dictated on Electronically Signed By: Phong Sandoval MD Electronically Signed Date/Time: 03/06/2024 11:49 PM EDT [facility] [employer] [facility] Patient Name: EREN BUSTILLO : 1960 [...] no evidence of aneurysm or vascular malformation. [facility] Phong Sandoval MD - 03/06/2024 Patient [...] Electronically Signed Date/Time: 03/06/2024 11:49 PM EDT [facility] MRA Neck vessels WO contrast on 03-06-2024 1. Limited quality MR angiogram of the extracranial carotid and vertebral arteries shows no definite significant stenosis with moderate tortuosity upper ICA's with S-shaped curves. Report Dictated on Electronically Signed By: Phong Sandoval MD Electronically Signed Date/Time: 03/06/2024 11:52 PM EDT [facility] 1960 [id number] Exam Date/Time: 03/06/2024 18:46 Procedure: MR NECK [...] no ulceration, and no evidence of dissection. [facility] Phong Sandoval MD - 03/06/2024 Patient Name: [facility]CHANT [facility] 1960 [id number] Exam Date/Time: 03/06/2024 18:46 Procedure: MR NECK [...] Electronically Signed Date/Time: 03/06/2024 11:52 PM EDT [facility] No Panel Informationon 03-06 Radiology Study observation (narrative) [facility] Mario Angel MD PhD 03/06/2024 4:07 PM [facility] [address] [place] [id number] ROUTINE EEG REPORT Patient Name: Eren Merchant : 1960 Date of Study: 03/06/2024 Duration Recorded: 24 Minutes EEG#: [id number] DESKTOP ANALYST: Cleo Claire PROVIDER REQUESTING STUDY: Kayli Velasquez MD REASON [...] recent episodes which prompted her transfer to [facility] for further workup. On 02/26/24, patient [...] office on 03/03/24. She walked up to child care center assistant director desk, all of a sudden both arms [...] IVPB Mini-Bag Plus 1,000 mg IntraVENous q24h aJy Black MD Stopped at 03/06/24 0551 fludrocortisone [...] study with video was carried out at [facility]. Scalp electrodes were positioned in person by an educational technologist, following patient education, according to the 10-20 International system of electrode placement and maintained for integrity and quality of the recording. EEG data with video was recorded continuously and digitally stored. The educational technologist reviewed all automated detections and manual events and prepared the data for archiving and provider review. Referential and bi (more content not included)... [facility] There is no interpre tation needed for this exam. IMAGING Progress Noteon 03-06-2024 Progress Note Nutrition rescreen completed. Chart reviewed. Patient to be monitored and followed by the diet field artillery targeting technician. ALEE Agustin Normal [facility] Progress Note Brief Neurology Upda te: Patient [...] and EEG. Plan discussed with Dr. Cruz. [facility] Progress Note ------- Attestation signed by Karen [...] Page on-call resident(s) first Karen Bryan DO [facility] Urology UROLOGY PROGRESS NOTE PATIENT NAME: Eren [...] AM ED (more content not included)... Normal [employer] [facility] Heart TransthoracicOrdere d By: Priyanka Holt on 03-06-2024 Ao Root Index 1.81 cm/m2 [facility] Phone: Aortic Root 3.4 cm [employer] Phone: Aortic Sinus Valsalva 3.4 cm [employer] Phone: Aortic Sinus Valsalva Index 1.81 cm/m2 [employer] Phone: Ascending Aorta 3.4 cm [employer] Phone: Ascending Aorta Index 1.81 cm/m2 [employer] Phone: E/E' Lateral 5.43 [employer] Phone: E/E' Ratio (Averaged) 4.83 [employer] Phone: E/E' Septal 4.22 [employer] Phone: EF BP 60 % 55 - 100 % [facility] Work Phone: Est. RA Pressure 3 mmHg [facility] [employer] Work Phone: Fractional Shortening 2D 36 % 28 - 44 % [facility] [employer] Work Phone: Global Longitudinal Strain -17.6 % [facility] [employer] Work Phone: Global Longitudinal Strain -17.5 % [facility] [employer] Work Phone: Global Longitudinal Strain -21.6 % [facility] [employer] Work Phone: Global Longitudinal Strain -18.9 % [facility] [employer] Work Phone: Interpretation and review of laboratory results Abnormal [facility] [employer] Work Phone: IVC Diameter 1.6 cm [facility] [employer] Work Phone: IVSd 0.8 cm 0.6 - 0.9 cm [facility] [employer] Work Phone: LA Volume 2C 19 mL Abnormal 22 - 52 mL [facility] [employer] Work Phone: LA Volume 4C 22 mL 22 - 52 mL [facility] [employer] Work Phone: LA Volume A/L 23 mL [facility] [employer] Work Phone: LA Volume BP 21 mL Abnormal 22 - 52 mL [facility] [employer] Work Phone: LA Volume Index 2C 10 mL/m2 Abnormal 16 - 34 mL/m2 [facility] [employer] Work Phone: LA Volume Index 4C 12 mL/m2 Abnormal 16 - 34 mL/m2 [facility] [employer] Work Phone: LA Volume Index A/L 12 mL/m2 16 - 34 mL/m2 [facility] [employer] Work Phone: LA Volume Index BP 11 ml/m2 Abnormal 16 - 34 ml/m2 [facility] [employer] Work Phone: LV E' Lateral Velocity 7 cm/s [facility] Work Phone: LV E' Septal Velocity 9 cm/s [facility] Work Phone: LV Mass 2D 89.7 g 67 - 162 g [facility] [employer] Work Phone: LV Mass 2D Index 47.7 g/m2 43 - 95 g/m2 [employer] Work Phone: LV RWT Ratio 0.41 [facility] Work Phone: LVIDd 3.9 cm 3.9 - 5.3 cm [facility] [employer] Work Phone: LVIDd Index 2.07 cm/m2 [employer] Work Phone: LVIDs 2.5 cm [facility] Work Phone: LVIDs Index 1.33 cm/m2 [employer] Work Phone: LVOT Area 3.5 cm2 [facility] Work Phone: LVOT Cardiac Output 4.7 liter/mi nu te [employer] Work Phone: LVOT Diameter 2.1 cm [facility] Work Phone: LVOT Mean Gradient 1 mmHg [facility] Work Phone: LVOT Peak Gradient 3 mmHg [facility] Work Phone: LVOT Peak Velocity 0.9 m/s [facility] Work Phone: LVOT Stroke Volume Index 23.8 mL/m2 [employer] Work Phone: LVOT SV 44.7 ml [facility] Work Phone: LVOT VTI 12.9 cm [facility] Work Phone: LVPWd 0.8 cm 0.6 - 0.9 cm [facility] Work Phone: MV A Velocity 0.59 m/s [facility] Work Phone: MV E Velocity 0.38 m/s [facility] Work Phone: MV E Wave Deceleration Time 105.3 ms [employer] Work Phone: MV E/A 0.64 [facility] Work Phone: RA Area 4C 14.5 mL [employer] Work Phone: RA Area 4C 14.4 mL [facility] Work Phone: RV Basal Dimension 2.7 cm [facility] [employer] Phone: RV Free Wall Peak S' 17 cm/s [facility] [employer] Phone: RV Mid Dimension 2.5 cm [facility] [employer] Phone: RVSP 30 mmHg [facility] [employer] Phone: Sinotubular Junction 2.[address] [facility] [employer] Phone: TAPSE 1 cm Abnormal 1.7 cm [facility] [employer] Phone: TR Max Velocity 2.59 m/s [facility] [employer] Phone: TR Peak Gradient 27 mmHg [facility] [employer] Phone: [phone] [facility] [employer] Phone: [phone] Heart Transthoracicon Left Ventricle: Left ventricle size [...] No significant valvular abnormalities. CV CPACS 36on 03-05-2023 36 Had bilateral stents placed Needs cp mandi ureteroscopy laser litho in 1-2 weeks bilateral stent change Normal [facility] BASIC METABOLIC PANELon 02-15 Anion gap [Moles/Vol] 14 mmol/L High 3-13 [facility] Comment on above: Performed By: #### L [id number], [id number] ####Cuprous Chloride Helper: LACY OROSCO ([phone])[facility] ([facility])[address] [place] [address] Calcium [Mass/Vol] 11.3 mg/dL High 8.4-10.4 [facility] Comment on above: Performed By: #### L [id number], [id number] ####Cuprous Chloride Helper: LACY OROSCO ([phone])[facility] ([facility])[address] [place] [address] Chloride [Moles/Vol] 102 mmol/L Normal 98-107 [facility] Comment on above: Performed By: #### L [id number], [id number] ####Cuprous Chloride Helper: LACY OROSCO ([phone])[facility] ([facility])[address] [place] [address] CO2 [Moles/Vol] 17 mmol/L Low 22-30 [facility] Comment on above: Performed By: #### L [id number], [id number] ####Cuprous Chloride Helper: LACY OROSCO ([phone])[facility] ([facility])[address] [place] [address] Creatinine [Mass/Vol] 2.67 mg/dL High 0.52-1.04 [facility] Comment on above: Performed By: #### L [id number], [id number] ####Cuprous Chloride Helper: LACY OROSCO ([phone])[facility])[address] [place] [address] GLOMERULAR FILTRATION RATE ML/MIN/1.73 SQ M.PREDICTED 19.3 mL/min/1.73m*2 Low >60.0 [facility] Comment on above: Result Comment: Calc ulation based on the Chronic Kidney Disease Epidemiology Collaboration (CKD-EPI) equation refit without adjustment for race Performed By: #### L AB15, [id number] ####Cuprous Chloride Helper: LACY OROSCO ([phone])[facility])[address] [place] [address] Glucose [Mass/Vol] 120 mg/dL High 70-100 [facility] Comment on above: Performed By: #### L AB15, [id number] ####Cuprous Chloride Helper: LACY OROSCO ([phone])[facility] ([facility])[address] [place] [address] Potassium [Moles/Vol] 4.2 mmol/L Normal 3.5-5.1 [facility] Comment on above: Performed By: #### L AB15, [id number] ####Cuprous Chloride Helper: LACY OROSCO ([phone])[facility] ([facility])[address] [place] [address] Sodium [Moles/Vol] 133 mmol/L Low 135-145 [facility] Comment on above: Performed By: #### L AB15, [id number] ####Cuprous Chloride Helper: LACY OROSCO ([phone])[facility] ([facility])[address] [place] [address] Urea nitrogen [Mass/Vol] 60 mg/dL High 7-17 [facility] Comment on above: Performed By: #### L AB15, [id number] ####Cuprous Chloride Helper: LACY OROSCO ([phone])[facility])[address] [place] [address] Basic metabolic 1998 panelon 03-05-2024 Anion gap [Moles/Vol] 14 mmol/L High 3 - 13 mmol/L [facility] Calcium [Mass/Vol] 11.3 mg/dL High 8.4 - 10. 4 mg/dL [facility] Chloride [Moles/Vol] 102 mmol/L 98 - 10 7 mmol/L [facility] CO2 [Moles/Vol] 17 mmol/L Low 22 - 30 mmol/L [facility] Creatinine [Mass/Vol] 2.67 mg/dL High 0.52 - 1.04 mg/dL [facility] GFR/1.73 sq M.predicted (S/P/Bld) [Vol rate/Area] 19.3 mL/min Low - PINF [facility] Comment on above: Calculation based on the Chronic Kidney Disease Epidemiology Collaboration (CKD-EPI) equation refit without adjustment for race Glucose [Mass/Vol] 120 mg/dL High 70 - 100 mg/dL [facility] Interpretation and review of laboratory results Abnormal [facility] [employer] Potassium [Moles/Vol] 4.2 mmol/L 3.5 - 5.1 mmol/L [facility] [employer] Sodium [Moles/Vol] 133 mmol/L Low 135 - 145 mmol/L [facility] [employer] Urea nitrogen [Mass/Vol] 60 mg/dL High 7 - 17 mg/dL [facility] CBC W Auto Differential pane l (Bld)Ordered By: Jordan Middleton on 03-05-2024 Basophils (Bld) [#/Vol] 0.1 10*3/uL 0.0 - 0.2 10*3/uL [facility] [employer] Basophils/100 WBC (Bld) 0.4 % 0.0 - 2.0 % [facility] [employer] Eosinophils (Bld) [#/Vol] 0.1 10*3/uL 0.0 - 0.5 10*3/uL [facility] [employer] Eosinophils/100 WBC (Bld) 0.4 % 0.0 - 6.0 % [facility] Erythrocyte distribution width (RBC) [Ratio] 15.3 % High 11.5 - 15.0 % [facility] [employer] Hematocrit (Bld) [Volume fraction] 38.2 % 35.0 - 47.0 % [facility] [employer] Hemoglobin (Bld) [Mass/Vol] 12.3 g/dL 11.7 - 16.0 g/dL [facility] [employer] Immature granulocytes (Bld) [#/Vol] 0.2 10*3/uL High NINF - 0.1 10*3/uL [facility] [employer] Immature granulocytes/100 WBC (Bld) 1.7 % 0.0 - 2.0 % [facility] Interpretation and review of laboratory results Abnormal [facility] Lymphocytes (Bld) [#/Vol] 1.9 10*3/uL 1.0 - 4.3 10*3/uL [facility] [employer] Lymphocytes/100 WBC (Bld) 15.5 % 15.0 - 45.0 % [facility] MCH (RBC) [Entitic mass] 25.3 pg Low 26.0 - 34.0 pg [facility] MCHC (RBC) [Mass/Vol] 32.2 % 30.5 - 36.0 % [facility] [employer] MCV (RBC) [Entitic vol] 78.4 fL 77.0 - 99.0 fL [facility] Monocytes (Bld) [#/Vol] 1.3 10*3/uL High 0.0 - 0.9 10*3/uL [facility] Monocytes/100 WBC (Bld) 10.4 % 5.0 - 13.0 % [facility] Neutrophils (Bld) [#/Vol] 8.9 10*3/uL High 1.8 - 7.5 10*3/uL [facility] Neutrophils/100 WBC (Bld) 71.6 % 38.0 - 82.0 % [facility] Nucleated RBC/100 WBC (Bld) [Ratio] 0 % [facility] [employer] Platelet mean volume (Bld) [Entitic vol] 10.3 fL 9.0 - 12.7 fL [facility] Platelets (Bld) [#/Vol] 466 10*3/uL High 140 - 440 10*3/uL [facility] RBC (Bld) [#/Vol] 4.87 10*6/uL 3.80 - 5.20 10*6/uL [facility] WBC (Bld) [#/Vol] 12.4 10*3/uL High 3.6 - 10.7 10*3/uL [facility] CBC WITH AUTO DIFFERENTIALon 03-05-2024 Basophils (Bld) [#/Vol] 0.1 10*3/uL Normal 0.0-0.2 [facility] Comment on above: Performed By: #### L [id number] ####Cuprous Chloride Helper: LACY OROSCO ([phone])[address] Basophils/100 WBC (Bld) 0.4 % Normal 0.0-2.0 [facility] Comment on above: Performed By: #### L [id number] ####Cuprous Chloride Helper: LACY OROSCO ([phone])[facility] ([facility])[address] [place] [address] Eosinophils (Bld) [#/Vol] 0.1 10*3/uL Normal 0.0-0.5 [facility] Comment on above: Performed By: #### L [id number] ####Cuprous Chloride Helper: LACY OROSCO ([phone])[facility])[address] [place] [address] Eosinophils/100 WBC (Bld) 0.4 % Normal 0.0-6.0 [facility] Comment on above: Performed By: #### L [id number] ####Cuprous Chloride Helper: LACY OROSCO ([phone])[address] Erythrocyte distribution width (RBC) [Ratio] 15.3 % High 11.5-15.0 [facility] Comment on above: Performed By: #### L [id number] ####Cuprous Chloride Helper: LACY OROSCO ([phone])[address] Hematocrit (Bld) [Volume fraction] 38.2 % Normal 35.0-47.0 [facility] Comment on above: Performed By: #### L [id number] ####Cuprous Chloride Helper: LACY OROSCO ([phone])[address] Hemoglobin (Bld) [Mass/Vol] 12.3 g/dL Normal 11.7-16.0 [facility] Comment on above: Performed By: #### L [id number] ####Cuprous Chloride Helper: LACY OROSCO ([phone])[address] IMMATURE GRANS % 1.7 % Normal 0.0-2.0 [facility] Comment on above: Performed By: #### L [id number] ####Cuprous Chloride Helper: LACY OROSCO ([phone])[address] IMMATURE GRANS ABSOLUTE 0.2 10*3/uL High <0.1 [facility] Comment on above: Performed By: #### L [id number] ####Cuprous Chloride Helper: LACY OROSCO ([phone])[facility])[address] [place] [address] Lymphocytes (Bld) [#/Vol] 1.9 10*3/uL Normal 1.0-4.3 [facility] Comment on above: Performed By: #### L [id number] ####Cuprous Chloride Helper: LACY OROSCO ([phone])[facility])[address] [place] [address] Lymphocytes/100 WBC (Bld) 15.5 % Normal 15.0-45.0 [facility] Comment on above: Performed By: #### L [id number] ####Cuprous Chloride Helper: LACY OROSCO ([phone])[facility])[address] [place] [address] MCH (RBC) [Entitic mass] 25.3 pg Low 26.0-34.0 [facility] Comment on above: Performed By: #### L [id number] ####Cuprous Chloride Helper: LACY OROSCO ([phone])[facility])[address] [place] [address] MCHC 32.2 % Normal 30.5-36.0 [facility] Comment on above: Performed By: #### L [id number] ####Cuprous Chloride Helper: LACY OROSCO ([phone])[address] MCV (RBC) [Entitic vol] 78.4 fL Normal 77.0-99.0 [facility] Comment on above: Performed By: #### L [id number] ####Cuprous Chloride Helper: LACY OROSCO ([phone])[address] Monocytes (Bld) [#/Vol] 1.3 10*3/uL High 0.0-0.9 [facility] Comment on above: Performed By: #### L [id number] ####Cuprous Chloride Helper: LACY OROSCO ([phone])[facility] [place] [address] Monocytes/100 WBC (Bld) 10.4 % Normal 5.0-13.0 [facility] Comment on above: Performed By: #### L [id number] ####Cuprous Chloride Helper: LACY OROSCO ([phone])[facility] ([facility])[address] [place] [address] NEUTROPHILS ABSOLUTE 8.9 10*3/uL High 1.8-7.5 [facility] Comment on above: Performed By: #### L [id number] ####Cuprous Chloride Helper: LACY OROSCO ([phone])[facility] ([facility])[address] [place] [address] Neutrophils/100 WBC (Bld) 71.6 % Normal 38.0-82.0 [facility] Comment on above: Performed By: #### L [id number] ####Cuprous Chloride Helper: LACY OROSCO ([phone])[facility] ([facility])[address] [place] [address] NRBC 0.0 /100 WBCs Normal 0.0-2.0 [facility] Comment on above: Performed By: #### L [id number] ####Cuprous Chloride Helper: LACY OROSCO ([phone])[facility] ([facility])[address] [place] [address] Platelet mean volume (Bld) [Entitic vol] 10.3 fL Normal 9.0-12.7 [facility] Comment on above: Performed By: #### L [id number] ####Cuprous Chloride Helper: LACY OROSCO ([phone])[facility] ([facility])[address] [place] [address] [place] Platelets (Bld) [#/Vol] 466 10*3/uL High 140-440 [facility] Comment on above: Performed By: #### L [id number] ####Cuprous Chloride Helper: LACY OROSCO ([phone])[facility] ([facility])[address] [place] [address] [place] RBC (Bld) [#/Vol] 4.87 10*6/uL Normal 3.80-5.20 [facility] Comment on above: Performed By: #### L [id number] ####Cuprous Chloride Helper: LACY OROSCO ([phone])[facility] ([facility])[address] [place] [address] WBC (Bld) [#/Vol] 12.4 10*3/uL High 3.6-10.7 [facility] Comment on above: Performed By: #### L [id number] ####Cuprous Chloride Helper: LACY OROSCO ([phone])[facility] [place] [address] CT ABDOMEN PELVIS WO IV CONT [facility] 03-05-2024 CT ABDOMEN PELVIS WO IV CONTRAST [...] Electronically Signed Date/Time: 03/05/2024 9:35 AM EDT [facility] CT Abdomen WO contraston Bilateral hydronephr osis. Obstructing calculus in the left distal ureter. The right distal ureter is difficult to follow into the bladder. Report Dictated on Electronically Signed By: Guillermo Calvin MD Electronically Signed Date/Time: 03/05/2024 9:35 AM T [facility] 1960 [id number] Exam Date/Time: 03/05/2024 09:11 Procedure: CT ABDOMEN [...] level. There is a transitional S1 level. [facility] Guillermo Calvin MD - 03/05/2024 [facility] Name: [facility] 1960 [id number] Exam Date/Time: 03/05/2024 09:11 Procedure: CT ABDOMEN [...] Electronically Signed Date/Time: 03/05/2024 9:35 AM EDT [facility] Study observation (narrative) [facility] Abdomen WO contrastOrdere d By: Guillermo Calvin on 03-05-2024 [employer] Work Phone: Consulton 03-05-2024 Consult ------- Attestation [...] (89 ?F) Te (more content not included)... [facility] Consult General Neurology Co nsult Patient: Eren Merchant Date of : 1960 Acct: [id number] PCP: Priyanka Smith Date of Admission: 03/04/2024 [...] recent episodes which prompted her transfer to [facility] for further workup. On 02/26/24, patient [...] office on 03/03/24. 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 Head trauma (no); 2. MASTER CHEF infections (no); 3. Family history of seizures (yes, brother); 4. Developmental delay (no); 5. Febrile seizures (no); 6. MASTER CHEF tumors (no); 7. MASTER CHEF vascular disease (no); 8. Significant medical history: CKD, ILD, current complicated UTI; 9. and early development: normal and early development Patient presented to [facility] and was found to be tachycardic. 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. As far as neurologic history: Patient [...] Groves MD amitrip (more content not included)... [facility] Consult Department of [facility] al Medicine Gastroenterology Attending Consult Note Reason [...] and states has dysmotility. She was on fdc reglan and ended up having drug induced [...] % infusion, 5-250 mL/hr, IntraVENous, PRN, Maurilio rGoves MD sodium chloride 0.9% (NS) flush 5-40 [...] cystitis 03/03/2024 ILD (interstitial lung disease) ([facility] 03/25/2020 Lung nodules 02/12/2020 NSIP (nonspecific interstitial pneumonitis) ([facility]) 10/30/2022 Stage 3a chronic kidney disease ([facility]) 01/12/2023 Post-menopausal bleeding 11/25/2018 Acquired hypothyroidism 03/04/2024 Resolved Ambulatory Problems Diagnosis Date Noted No Resolved Ambulatory Problems Past Medical History: Diagnosis Date Arthritis Cancer (CMS/HCC) ([facility]) Disease of thyroid gland Past Surgical History: [...] Resource Strain: High Risk (03/26/2020) Received from [facility] Overall Financial Resource Strain (CARDIA) Difficulty of Paying Living Expenses: Very hard Food Insecurity: No Food Insecurity (03/26/2020) Received from [facility] Hunger Vital Sign Worried About Running Out of Food in the Last Year: Never true Ran Out of Food in the Last Year: Never true Transportation Needs: No Transportation Needs (03/26/2020) Received from [facility] PRAPARE - Transportation Lack of Transportation (Medical): No Lack of Transportation (Non-Medical): No Physical Activity: Inactive (06/22/2023) Received from [facility] Exercise Vital Sign Days of Exercise per Week: 0 days Minutes of Exercise per Session: 0 m (more content not included)... Normal [facility] ECG 12-LEADon 03-05-2024 ECG 12-LEAD IMPRESSION: Sinus tachycardia Low voltage, precordial leads Borderline T abnormalities, anterior leads Electronically Signed On 03-05-2024 17:08:28 EDT by Fatemeh Watkins Normal [facility] IDNon 03-05-2024 IDN Problem: Pain - Adul [...] and maintained or improved Outcome: Progressing Normal [facility] Laboratory - Chemistry and C hemistry - challengeon 03-05-2024 TSH Qn 3.641 m[IU]/L [facility] [employer] Panel InformationOrdered By: Fatemeh Watkins on 03-05-2024 P Crawley -11 degrees [facility] Work Phone: MN Interval 151 ms [employer] Work Phone: QRS Crawley -9 degrees [facility] Work Phone: QRSD Interval 86 ms [facility] Phone: QT Interval 303 ms [facility] Phone: QTC Interval 403 ms [facility] Phone: T Wave Crawley 42 degrees [facility] Phone: [facility] Phone: No Panel Informationon 03-05 Sinus tachycardia Low voltage, precordial leads Borderline T abnormalities, anterior leads Electronically Signed On 03-05-2024 17:08:28 EDT by Fatemeh Watkins CV Fatemeh Hager MD - 03/05/2024 IMPRESSION: Sinus tachycardia Low voltage, precordial leads Borderline T abnormalities, anterior leads Electronically Signed On 03-05-2024 17:08:28 EDT by Fatemeh Watkins [facility] Nursing Noteon 03-05-2024 Nursing Note Pt ambulated to rest room with RN assist x 1, voided twice adequately. Returned to bed and transport taking pt to room. Normal [facility] Nursing Note Pt doing well, awake and drinking water, no complaints, attempted bedpan but was unable, pt states she can wait to try the restroom in a little while. Report called and in for transport. Normal [facility] Nursing Note MRI screening comple te. Remote for bladder stimulator requested to be brought in alone with cards for [employer] and hot car charger. Patient said they could be brought in on Wednesday. Normal [facility] Nursing Note Patient had orthosta tic vitals taken, blood pressure standing was 83/55. Rapid notified, told to reach out to doctor. Doctor notified and no further orders placed. Waited on transportation but told by nursing supervisor steffen house patient okay to take over in wheelchair. Patient taken to in stable condition. Normal [facility] Op Noteon 03-05-2024 Op Note Javier Rosenberg [...] with bilateral hydronephrosis. She was sent from [facility] for possible ureteral tumor. Repeat image [...] masses or lesions. Left Then a 0.035 [place] wire was advanced to the level of the kidney. A 6 fr x 24cmJJ stent was advanced over the wire through the cystoscope under fluoroscopic visualization. Once in position the wire was removed. A good curl was noted in the kidney and the bladder. Right Then a 0.035 [place] wire was advanced to the level of the kidney. A 6fr x 24cmJJ stent was advanced over the wire through the cystoscope under fluoroscopic visualization. Once in position the wire was removed. A good curl was noted in the kidney and the bladder. The bladder was emptied and patient awoken from anesthesia. Katherine Bowen MD 03/05/24 5:49 PM Normal [facility] THYROID STIMULATING HORMONEo n 03-05-2024 THYROID STIMULATING HORMONE 3.641 uIU/mL Normal 0.465-4.68 0 [facility] Comment on above: Performed By: #### L AB15, [id number] ####Cuprous Chloride Helper: LACY OROSCO ([phone])[facility] ([facility])[address] [place] [address] TSH Qnon 03-05-2024 Interpretation and review of laboratory results Normal [facility] URINE CULTUREon 03-05-2024 Bacteria identified Cx Nom (U) URINE CULTURE Reference No growth (<1,000 CFU/mL) [ S = SUSCEPTIBLE R = RESISTANT I = INTERMEDIATE S-DD = Susceptible-dose dependent NS = Non-susceptible NO = No Interpretation ] Normal [facility] Comment on above: Performed By: #### L [id number] ####Cuprous Chloride Helper: LACY OROSCO ([phone])[facility] ([address] Urine Cultureon 03-05-2024 [facility] Proteus mirabilis [place] Count 80,000-100,000 Proteus mirabilis: REACTION Ampicillin Islt [...] TMP SMX Islt MELVIN <=20 S Normal [facility] Comment on above: Performed By: #### M 100.2200 ####[facility] [id number] [place] [id number] Vital signsOrdered By: Fatemeh Watkins on 03-05-2024 Heart rate 106 /min bpm [facility] Work Phone: Basic Metabolic Profile (BMP )on 03-04-2024 BUN/CRE 23.5 RATIO High 03-05 [facility] Comment on above: Performed By: #### L 100.0500, L500.2500 #### [facility] [address] [facility] [id number] [place],Total 10.3 mg/dL High 8.5-10.1 [facility] Comment on above: Performed By: #### L 100.0500, L500.2500 #### [facility] [address] [place], [address] Chloride [Moles/Vol] 105 mmol/L Normal 98-107 [facility] Comment on above: Performed By: #### L 100.0500, L500.2500 #### [facility] [address] [place], [address] CO2 [Moles/Vol] 19.0 mmol/L Low 21.0-32.0 [facility] Comment on above: Performed By: #### L 100.0500, L500.2500 #### [facility] [address] [place], [address] Creatinine [Mass/Vol] 2.60 mg/dL High 0.55-1.02 [facility] Comment on above: Result Comment: The validity of the calculated GFR GFRAA in patients over 70 years has not been determined. Clinical correlation is essential. Performed By: #### L 100.0500, L500.2500 #### [facility] [address] [place], [address] ECRCL 22.76 ml/min Normal [facility] Comment on above: Performed By: #### L 100.0500, L500.2500 #### [facility] [address] [place], [address] EST GFR - AA 24 mL/min Low >60 [facility] Comment on above: Result Comment: Afri can Indian GFR Calc Performed By: #### L 100.0500, L500.2500 #### [facility] [address] [place], [address] GAP 10 Normal 5-15 [facility] Comment on above: Performed By: #### L 100.0500, L500.2500 #### [facility] [address] [place], [address] GFR/1.73 sq M.predicted among non-blacks MDRD (S/P/Bld) [Vol rate/Area] 20 mL/min/{1.73_m2} Low >60 [facility] Comment on above: Result Comment: Non- GFR Calc Performed By: #### L 100.0500, L500.2500 #### [facility] [address] [place], [address] Glucose [Mass/Vol] 104 mg/dL Normal 74-106 [facility] Comment on above: Result Comment: Fast ing Glucose result from 100 to 125 mg/dL suggests IMPAIRED HOMEOSTASIS per A.D.A. criteria. Performed By: #### L 100.0500, L500.2500 #### [facility] [address] [place], [address] Potassium [Moles/Vol] 3.8 mmol/L Normal 3.5-5.1 [facility] Comment on above: Performed By: #### L 100.0500, L500.2500 #### [facility] [address] [place], [address] Sodium [Moles/Vol] 134 mmol/L Low 136-145 [facility] Comment on above: Performed By: #### L 100.0500, L500.2500 #### [facility] [address] [place], [address] Urea nitrogen [Mass/Vol] 61 mg/dL High 7-18 [facility] Comment on above: Performed By: #### L 100.0500, L500.2500 #### [facility] [address] [place], [address] CBC W Auto Differential pane l (Bld)Ordered By: Ching Azar on 03-04-2024 Basophils (Bld) [#/Vol] 0.1 10*3/uL 0.0 - 0.2 10*3/uL [employer] [facility] Basophils/100 WBC (Bld) 0.3 % 0.0 - 2.0 % [facility] [employer] Eosinophils (Bld) [#/Vol] 0.1 10*3/uL 0.0 - 0.5 10*3/uL [facility] Eosinophils/100 WBC (Bld) 0.3 % 0.0 - 6.0 % [facility] Erythrocyte distribution width (RBC) [Ratio] 15.2 % High 11.5 - 15.0 % [facility] Hematocrit (Bld) [Volume fraction] 37.2 % 35.0 - 47.0 % [facility] Hemoglobin (Bld) [Mass/Vol] 12 g/dL 11.7 - 16.0 g/dL [facility] Immature granulocytes (Bld) [#/Vol] 0.2 10*3/uL High NINF - 0.1 10*3/uL [facility] Immature granulocytes/100 WBC (Bld) 1.2 % 0.0 - 2.0 % [facility] Interpretation and review of laboratory results Abnormal [facility] Lymphocytes (Bld) [#/Vol] 1.9 10*3/uL 1.0 - 4.3 10*3/uL [facility] Lymphocytes/100 WBC (Bld) 12.3 % Low 15.0 - 45.0 % [facility] MCH (RBC) [Entitic mass] 25.8 pg Low 26.0 - 34.0 pg [facility] MCHC (RBC) [Mass/Vol] 32.3 % 30.5 - 36.0 % [facility] MCV (RBC) [Entitic vol] 79.8 fL 77.0 - 99.0 fL [facility] Monocytes (Bld) [#/Vol] 1.7 10*3/uL High 0.0 - 0.9 10*3/uL [facility] Monocytes/100 WBC (Bld) 11.2 % 5.0 - 13.0 % [facility] Neutrophils (Bld) [#/Vol] 11.4 10*3/uL High 1.8 - 7.5 10*3/uL [facility] Neutrophils/100 WBC (Bld) 74.7 % 38.0 - 82.0 % [facility] Nucleated RBC/100 WBC (Bld) [Ratio] 0 % [facility] Platelet mean volume (Bld) [Entitic vol] 10.3 fL 9.0 - 12.7 fL [facility] Platelets (Bld) [#/Vol] 421 10*3/uL 140 - 440 10*3/uL [facility] RBC (Bld) [#/Vol] 4.66 10*6/uL 3.80 - 5.20 10*6/uL [facility] WBC (Bld) [#/Vol] 15.3 10*3/uL High 3.6 - 10.7 10*3/uL [facility] CBC WITH AUTO DIFFERENTIALon 03-04-2024 Basophils (Bld) [#/Vol] 0.1 10*3/uL Normal 0.0-0.2 [facility] Comment on above: Performed By: #### L [id number] ####Cuprous Chloride Helper: LACY OROSCO ([phone])[facility])[address] [place] [address] Basophils/100 WBC (Bld) 0.3 % Normal 0.0-2.0 [facility] Comment on above: Performed By: #### L [id number] ####Cuprous Chloride Helper: LACY OROSCO ([phone])[facility])[address] [place] [address] Eosinophils (Bld) [#/Vol] 0.1 10*3/uL Normal 0.0-0.5 [facility] Comment on above: Performed By: #### L [id number] ####Cuprous Chloride Helper: LACY OROSCO ([phone])[facility])[address] [place] [address] Eosinophils/100 WBC (Bld) 0.3 % Normal 0.0-6.0 [facility] Comment on above: Performed By: #### L [id number] ####Cuprous Chloride Helper: LACY OROSCO ([phone])[facility])[address] [place] [address] Erythrocyte distribution width (RBC) [Ratio] 15.2 % High 11.5-15.0 [facility] Comment on above: Performed By: #### L [id number] ####Cuprous Chloride Helper: LACY OROSCO ([phone])[facility])[address] [place] [address] Hematocrit (Bld) [Volume fraction] 37.2 % Normal 35.0-47.0 [facility] Comment on above: Performed By: #### L [id number] ####Cuprous Chloride Helper: LACY OROSCO ([phone])[facility])[address] [place] [address] Hemoglobin (Bld) [Mass/Vol] 12.0 g/dL Normal 11.7-16.0 [facility] Comment on above: Performed By: #### L [id number] ####Cuprous Chloride Helper: LACY OROSCO ([phone])[facility])[address] [place] [address] IMMATURE GRANS % 1.2 % Normal 0.0-2.0 [facility] Comment on above: Performed By: #### L [id number] ####Cuprous Chloride Helper: LACY OROSCO ([phone])[address] IMMATURE GRANS ABSOLUTE 0.2 10*3/uL High <0.1 [facility] Comment on above: Performed By: #### L [id number] ####Cuprous Chloride Helper: LACY OROSCO ([phone])[facility])[address] [place] [address] Lymphocytes (Bld) [#/Vol] 1.9 10*3/uL Normal 1.0-4.3 [facility] Comment on above: Performed By: #### L [id number] ####Cuprous Chloride Helper: LACY OROSCO ([phone])[facility])[address] [place] [address] Lymphocytes/100 WBC (Bld) 12.3 % Low 15.0-45.0 [facility] Comment on above: Performed By: #### L [id number] ####Cuprous Chloride Helper: LACY OROSCO ([phone])[address] MCH (RBC) [Entitic mass] 25.8 pg Low 26.0-34.0 [facility] Comment on above: Performed By: #### L [id number] ####Cuprous Chloride Helper: LACY OROSCO ([phone])[facility] ([facility])[address] [place] [address] MCHC 32.3 % Normal 30.5-36.0 [facility] Comment on above: Performed By: #### L [id number] ####Cuprous Chloride Helper: LACY OROSCO ([phone])[facility] ([facility])[address] [place] [address] MCV (RBC) [Entitic vol] 79.8 fL Normal 77.0-99.0 [facility] Comment on above: Performed By: #### L [id number] ####Cuprous Chloride Helper: LACY OROSCO ([phone])[facility] ([facility])[address] [place] [address] Monocytes (Bld) [#/Vol] 1.7 10*3/uL High 0.0-0.9 [facility] Comment on above: Performed By: #### L [id number] ####Cuprous Chloride Helper: LACY OROSCO ([phone])[facility] ([facility])[address] [place] [address] Monocytes/100 WBC (Bld) 11.2 % Normal 5.0-13.0 [facility] Comment on above: Performed By: #### L [id number] ####Cuprous Chloride Helper: LACY OROSCO ([phone])[facility] ([facility])[address] [place] [address] NEUTROPHILS ABSOLUTE 11.4 10*3/uL High 1.8-7.5 [facility] Comment on above: Performed By: #### L [id number] ####Cuprous Chloride Helper: LACY OROSCO ([phone])[facility] ([facility])[address] [place] [address] Neutrophils/100 WBC (Bld) 74.7 % Normal 38.0-82.0 [facility] Comment on above: Performed By: #### L [id number] ####Cuprous Chloride Helper: LACY OROSCO ([phone])[facility] ([facility])[address] [place] [address] [place] NRBC 0.0 /100 WBCs Normal 0.0-2.0 [facility] Comment on above: Performed By: #### L [id number] ####Cuprous Chloride Helper: LACY OROSCO ([phone])[facility])[address] [place] [address] Platelet mean volume (Bld) [Entitic vol] 10.3 fL Normal 9.0-12.7 [facility] Comment on above: Performed By: #### L [id number] ####Cuprous Chloride Helper: LACY OROSCO ([phone])[facility] ([facility])[address] [place] [address] Platelets (Bld) [#/Vol] 421 10*3/uL Normal 140-440 [facility] Comment on above: Performed By: #### L [id number] ####Cuprous Chloride Helper: LACY OROSCO ([phone])[facility])[address] [place] [address] RBC (Bld) [#/Vol] 4.66 10*6/uL Normal 3.80-5.20 [facility] Comment on above: Performed By: #### L [id number] ####Cuprous Chloride Helper: LACY OROSCO ([phone])[facility])[address] [place] [address] WBC (Bld) [#/Vol] 15.3 10*3/uL High 3.6-10.7 [facility] Comment on above: Performed By: #### L [id number] ####Cuprous Chloride Helper: LACY OROSCO ([phone])[facility])[address] [place] [address] CBC-Complete Blood Cnt No Di ffon 03-04-2024 Erythrocyte distribution width (RBC) [Ratio] 15.4 % High 11.6-14.6 [facility] Comment on above: Performed By: #### L 100.0500, L500.2500 #### [facility] [address] [place] [address]. [place], [place], [id number] Hematocrit (Bld) [Volume fraction] 37.6 % Normal 37-47 [facility] Comment on above: Performed By: #### L 100.0500, L500.2500 #### [facility] [address] [place], [address] Hemoglobin (Bld) [Mass/Vol] 11.6 g/dL Low 12.0-15.0 [facility] Comment on above: Performed By: #### L 100.0500, L500.2500 #### [facility] [address] [place], [address] MCH (RBC) [Entitic mass] 25.4 pg Low 27.0-32.0 [facility] Comment on above: Performed By: #### L 100.0500, L500.2500 #### [facility] [address] [place], [address] MCHC (RBC) [Mass/Vol] 30.9 g/dL Low 32-36 [facility] Comment on above: Performed By: #### L 100.0500, L500.2500 #### [facility] [address] [place], [address] MCV (RBC) [Entitic vol] 82.3 fL Normal 81-99 [facility] Comment on above: Performed By: #### L 100.0500, L500.2500 #### [facility] [address] [place], [address] Platelet mean volume (Bld) [Entitic vol] 10.3 fL Normal 6.2-12.0 [facility] Comment on above: Performed By: #### L 100.0500, L500.2500 #### [facility] [address] [place], [address] Platelets (Bld) [#/Vol] 324 10*3/uL Normal 150-450 [facility] Comment on above: Performed By: #### L 100.0500, L500.2500 #### [facility] [address] [place], [address] RBC (Bld) [#/Vol] 4.57 10*6/uL Normal 4.2-5.4 [facility] Comment on above: Performed By: #### L 100.0500, L500.2500 #### [facility] [address] [place], [address] RDW SD 46.0 fl High 35.1-43.9 [facility] Comment on above: Performed By: #### L 100.0500, L500.2500 #### [facility] [address] [place], [address] WBC (Bld) [#/Vol] 16.9 10*3/uL High 4.4-11.0 [facility] Comment on above: Performed By: #### L 100.0500, L500.2500 #### [facility] [address] [place], [address] COMPREHENSIVE METABOLIC PANE Ghanshyam 03-04-2024 Albumin [Mass/Vol] 4.0 g/dL Normal 3.5-5.0 [facility] Comment on above: Performed By: #### L [id number] ####Cuprous Chloride Helper: LACY OROSCO ([phone])[facility])[address] [place] [address] ALP [Catalytic activity/Vol] 96 U/L Normal 38-126 [facility] Comment on above: Performed By: #### L AB17 ####Cuprous Chloride Helper: LACY OROSCO ([phone])[facility])[address] [place] [address] ALT [Catalytic activity/Vol] 17 U/L Normal 0-34 [facility] Comment on above: Performed By: #### L AB17 ####Cuprous Chloride Helper: LACY OROSCO ([phone])[facility])[address] [place] [address] Anion gap [Moles/Vol] 9 mmol/L Normal 3-13 [facility] Comment on above: Performed By: #### L AB17 ####Cuprous Chloride Helper: LACY OROSCO ([phone])[facility])[address] [place] [address] AST [Catalytic activity/Vol] 27 U/L Normal 15-46 [facility] Comment on above: Performed By: #### L AB17 ####Cuprous Chloride Helper: LACY OROSCO ([phone])[facility] ([facility])[address] [place] [address] Bilirubin [Mass/Vol] 0.5 mg/dL Normal 0.2-1.3 [facility] Comment on above: Performed By: #### L AB17 ####Cuprous Chloride Helper: LACY OROSCO ([phone])[facility])[address] [place] [address] Calcium [Mass/Vol] 10.5 mg/dL High 8.4-10.4 [facility] Comment on above: Performed By: #### L AB17 ####Cuprous Chloride Helper: LACY OROSCO ([phone])[facility] ([facility])[address] [place] [address] Chloride [Moles/Vol] 104 mmol/L Normal 98-107 [facility] Comment on above: Performed By: #### L AB17 ####Cuprous Chloride Helper: LACY OROSCO ([phone])[facility] ([facility])[address] [place] [address] CO2 [Moles/Vol] 18 mmol/L Low 22-30 [facility] Comment on above: Performed By: #### L AB17 ####Cuprous Chloride Helper: LACY OROSCO ([phone])[facility] ([facility])[address] [place] [address] Creatinine [Mass/Vol] 2.46 mg/dL High 0.52-1.04 [facility] Comment on above: Performed By: #### L AB17 ####Cuprous Chloride Helper: LACY OROSCO ([phone])[facility])[address] [place] [address] GLOMERULAR FILTRATION RATE ML/MIN/1.73 SQ M.PREDICTED 21.3 mL/min/1.73m*2 Low >60.0 [facility] Comment on above: Result Comment: Calc ulation based on the Chronic Kidney Disease Epidemiology Collaboration (CKD-EPI) equation refit without adjustment for race Performed By: #### L AB17 ####Cuprous Chloride Helper: LACY OROSCO ([phone])[facility])[address] [place] [address] Glucose [Mass/Vol] 111 mg/dL High 70-100 [facility] Comment on above: Performed By: #### L AB17 ####Cuprous Chloride Helper: LACY OROSCO ([phone])[facility])[address] [place] [address] Potassium [Moles/Vol] 4.1 mmol/L Normal 3.5-5.1 [facility] Comment on above: Performed By: #### L AB17 ####Cuprous Chloride Helper: LACY OROSCO ([phone])[facility] ([facility])[address] [place] [address] Protein [Mass/Vol] 7.7 g/dL Normal 6.3-8.2 [facility] Comment on above: Performed By: #### L AB17 ####Cuprous Chloride Helper: LACY OROSCO ([phone])[facility])[address] [place] [address] Sodium [Moles/Vol] 131 mmol/L Low 135-145 [facility] Comment on above: Performed By: #### L AB17 ####Cuprous Chloride Helper: LACY OROSCO ([phone])[facility])[address] [place] [address] [place] Urea nitrogen [Mass/Vol] 58 mg/dL High 7-17 [facility] Comment on above: Performed By: #### L AB17 ####Cuprous Chloride Helper: LACY OROSCO ([phone])[facility])[address] [place] [address] Comprehensive metabolic 1998 panelon 10-19-2024 Albumin [Mass/Vol] 4 g/dL 3.5 - 5.0 g/dL [facility] ALP [Catalytic activity/Vol] 96 U/L 38 - 126 U/L [facility] ALT [Catalytic activity/Vol] 17 U/L 0 - 34 U/L [facility] Anion gap [Moles/Vol] 9 mmol/L 3 - 13 mmol/L [facility] AST [Catalytic activity/Vol] 27 U/L 15 - 46 U/L [facility] Bilirubin [Mass/Vol] 0.5 mg/dL 0.2 - 1 .3 mg/dL [facility] Calcium [Mass/Vol] 10.5 mg/dL High 8.4 - 10. 4 mg/dL [facility] Chloride [Moles/Vol] 104 mmol/L 98 - 10 7 mmol/L [facility] CO2 [Moles/Vol] 18 mmol/L Low 22 - 30 mmol/L [facility] Creatinine [Mass/Vol] 2.46 mg/dL High 0.52 - 1.04 mg/dL [facility] GFR/1.73 sq M.predicted (S/P/Bld) [Vol rate/Area] 21.3 mL/min Low - PINF [facility] Comment on above: Calculation based on the Chronic Kidney Disease Epidemiology Collaboration (CKD-EPI) equation refit without adjustment for race Glucose [Mass/Vol] 111 mg/dL High 70 - 100 mg/dL [facility] Interpretation and review of laboratory results Abnormal [facility] Potassium [Moles/Vol] 4.1 mmol/L 3.5 - 5.1 mmol/L [facility] Protein [Mass/Vol] 7.7 g/dL 6.3 - 8.2 g/dL [facility] Sodium [Moles/Vol] 131 mmol/L Low 135 - 145 mmol/L [facility] Urea nitrogen [Mass/Vol] 58 mg/dL High 7 - 17 mg/dL [facility] US Kidneyon 03-04-2024 1. Mild bilateral hydronephrosis. Report Dictated on Electronically Signed By: Maxwell Levi MD Electronically Signed Date/Time: 03/04/2024 11:10 PM [facility] Patient Name: EREN BUSTILLO : [...] empty and not adequately visualized or evaluated. [facility] Maxwell Levi MD - 03/04/2024 Patient [...] Electronically Signed Date/Time: 03/04/2024 11:10 PM EDT [facility] Radiology Study observation (narrative) [facility] KidneyOrdered By: Maxwell Levi on 03-04-2024 [facility] [employer] Work Phone: US RENAL COMPLETEon 03-04-20 US RENAL COMPLETE Patient Name: EREN BUSTILLO [...] Electronically Signed Date/Time: 03/04/2024 11:10 PM EDT Normal [facility] 12 Lead EKGon 03-03-2024 12 Lead EKG [facility] Cardiovascular Services [address] [place] [address] 12 Lead EKG 03/03/24 1411 MR#: [id number] Acct: [id number] Name: EREN MERCHANT Rep #: [id number] : 1960 63 From: Mathew Parkinson MD Attending Dr: Status: DEP ER Ordering Dr: Randy Granger P. Date: 03/03/24 Location: ED Sex: F [...] abnormality Abnormal ECG Confirmed by Mathew Parkinson ([id number]), photographic editor ABDULKADIR LOPEZ ([id number]) on 03/06/2024 11:54:14 AM Referred By: PRAVIN Confirmed By:Mathew Parkinson 03/06/24 1154 Date Mathew Parkinosn MD CC: Dr. Jaguar Norwood DO; Dr. Priyanka Smith MD; ED PHYSICIAN PROVIDER Signed Normal [facility] Abdomen/Pelvis without Conto n 03-03-2024 Abdomen/Pelvis without Cont [facility] Imaging Services [address] [place] [address] Abdomen/Pelvis without Cont MR#: [id number] Acct: [id number] Name: EREN MERCHANT Rep #: [id number] : 1960 F 63 From: Marlee Mckeon MD PCP: Dr. Priyanka Smith MD Status: REG ER Study: Abdomen/Pelvis without Cont Date of Exam: 02/14 01/07 Exam# [id number] Ordering Dr: Jaguar Norwood DO [id number] INDICATION: Kidney Stone EXAMINATION: CT ABDOMEN AND [...] Jaguar Norwood DO; Dr. Priyanka Smith MD [employer] Sales Representative: Signed [facility] BNP,B-Type NATRIURETIC PEPTI Cheri 03-03-2024 Natriuretic peptide B (Bld) [Mass/Vol] 42.4 pg/mL Normal 0-100 [facility] Comment on above: Performed By: #### L 500.2500, L503.6620, L100.0100, L501.5200, L501.5425, L501.9520, L300.8000 ####[facility] [address] [place], [address] Basic Metabolic Profile (BMP )on 03-03-2024 BUN/CRE 21.9 RATIO High 10-20 [facility] Comment on above: Order Comment: 1Y Performed By: #### L 500.2500, L503.6620, L100.0100, L501.5200, L501.5425, L501.9520, L300.8000 ####[facility] [address] [place], [address] CA,Total 12.1 mg/dL High 8.5-10.1 [facility] Comment on above: Order Comment: 1Y Performed By: #### L 500.2500, L503.6620, L100.0100, L501.5200, L501.5425, L501.9520, L300.8000 ####[facility] [address] [place], [address] Chloride [Moles/Vol] 99 mmol/L Normal 98-107 [facility] Comment on above: Order Comment: 1Y Performed By: #### L 500.2500, L503.6620, L100.0100, L501.5200, L501.5425, L501.9520, L300.8000 ####[facility] [address] [place], [address] CO2 [Moles/Vol] 20.0 mmol/L Low 21.0-32.0 [facility] Comment on above: Order Comment: 1Y Performed By: #### L 500.2500, L503.6620, L100.0100, L501.5200, L501.5425, L501.9520, L300.8000 ####[facility] [address] [place], [address] Creatinine [Mass/Vol] 3.10 mg/dL High 0.55-1.02 [facility] Comment on above: Order Comment: 1Y Result Comment: The validity of the calculated GFR GFRAA in patients over 70 years has not been determined. Clinical correlation is essential. Performed By: #### L 500.2500, L503.6620, L100.0100, L501.5200, L501.5425, L501.9520, L300.8000 ####[facility] [address] [place], [address] ECRCL 19.09 ml/min Normal [facility] Comment on above: Order Comment: 1Y Performed By: #### L 500.2500, L503.6620, L100.0100, L501.5200, L501.5425, L501.9520, L300.8000 ####[facility] [address] [place], [address] EST GFR - AA 19 mL/min Low >60 [facility] Comment on above: Order Comment: 1Y Result Comment: Afri can Indian GFR Calc Performed By: #### L 500.2500, L503.6620, L100.0100, L501.5200, L501.5425, L501.9520, L300.8000 ####[facility] [address] [place], [address] GAP 12 Normal 5-15 [facility] Comment on above: Order Comment: 1Y Performed By: #### L 500.2500, L503.6620, L100.0100, L501.5200, L501.5425, L501.9520, L300.8000 ####[facility] [address] [place], [address] GFR/1.73 sq M.predicted among non-blacks MDRD (S/P/Bld) [Vol rate/Area] 16 mL/min/{1.73_m2} Low >60 [facility] Comment on above: Order Comment: 1Y Result Comment: Non- GFR Calc Performed By: #### L 500.2500, L503.6620, L100.0100, L501.5200, L501.5425, L501.9520, L300.8000 ####[facility] [address] [place], [address] Glucose [Mass/Vol] 150 mg/dL High 74-106 [facility] Comment on above: Order Comment: 1Y Result Comment: Fast ing Glucose result greater than or equal to 126 mg/dL suggests DIABETES MELLITUS per A.D.A. criteria. Performed By: #### L 500.2500, L503.6620, L100.0100, L501.5200, L501.5425, L501.9520, L300.8000 ####[facility] [address] [place], [address] Potassium [Moles/Vol] 4.2 mmol/L Normal 3.5-5.1 [facility] Comment on above: Order Comment: 1Y Performed By: #### L 500.2500, L503.6620, L100.0100, L501.5200, L501.5425, L501.9520, L300.8000 ####[facility] [address] [place], [address] Sodium [Moles/Vol] 130 mmol/L Low 136-145 [facility] Comment on above: Order Comment: 1Y Performed By: #### L 500.2500, L503.6620, L100.0100, L501.5200, L501.5425, L501.9520, L300.8000 ####[facility] [address] [place], [address] Urea nitrogen [Mass/Vol] 68 mg/dL High 7- [facility] Comment on above: Order Comment: 1Y Performed By: #### L 500.2500, L503.6620, L100.0100, L501.5200, L501.5425, L501.9520, L300.8000 ####[facility] [address] [place], [address] Brain/Head without Contrasto n 03-03-2024 Brain/Head without Contrast [facility] Imaging Services [address] [place] [address] Brain/Head without Contrast MR#: [id number] Acct: [id number] Name: EREN MERCHANT Rep #: [id number] : 1960 F 63 From: Marlee Mckeon MD PCP: Dr. Priyanka Smith MD Status: PRE ER Study: Brain/Head without Contrast Date of Exam: 02/14 01/07 Exam# [id number] Ordering Dr: Jaguar Norwood DO [id number] INDICATION: Syncope EXAMINATION: CT BRAIN - CT [...] Jaguar Norwood DO; Dr. Priyanka Smith MD Shipping Services Sales Representative: Signed Normal [facility] CNOVon 03-03-2024 CNOV Normal [facility] CTA Chest W/WO Contraston CTA Chest W/WO Contrast [facility] Imaging Services [address] [place] [address] CTA Chest W/WO Contrast MR#: [id number] Acct: [id number] Name: EREN MERCHANT Rep #: [id number] : 1960 F 63 From: Marlee Mckeon MD PCP: Dr. Priyanka Smith MD Status: REG ER Study: CTA Chest W/WO Contrast Date of Exam: 03/03/24 Exam# [id number] Ordering Dr: Jaguar Norwood DO [id number] STUDY: CTA CHEST REASON FOR EXAM: Female, [...] Jaguar Norwood DO; Dr. Priyanka Smith MD Shipping Services Sales Representative: Signed Normal [facility] Chest 1 View (Portable)on Chest 1 View (Portable) [facility] Imaging Services [address] [place] [address] Chest 1 View (Portable) MR#: [id number] Acct: [id number] Name: EREN MERCHANT Rep #: [id number] : 1960 F 63 From: Marlee Mckeon MD PCP: Dr. Priyanka Smith MD Status: PRE ER Study: Chest 1 View (Portable) Date of Exam: 03/03/24 Exam# [id number] Ordering Dr: Jaguar Norwood DO [id number] INDICATION: Syncope EXAMINATION/TECHNIQUE: X-RAY - XR Chest [...] Jaguar Norwood DO; Dr. Priyanka Smith MD Shipping Services Sales Representative: Signed Normal [facility] D-Dimer Quantitative (DVT/PE )on 03-03-2024 D-DIMER QUANT 3.44 FEU/ug/m Invalid Interpretation Code 0.27-0.49 [facility] Comment on above: Order Comment: CRITI CHRISTINA VALUE CALLED TO GABI NEGRO 03/03/24 Amanda Guadarrama. RESULTS READ BACK BY SAME. Result Comment: D-Di she ELEVATED (>0.49): Additional studies and clinical assessments are indicated to conclude diagnosis of: Deep Vein Thrombosis (DVT) or Pulmonary Embolism (PE) Performed By: #### L 500.2500, L503.6620, L100.0100, L501.5200, L501.5425, L501.9520, L300.8000 #### [facility] [address] [place], [address] Emergency Department Summary on 03-03-2024 Emergency Department Summary [facility] Medical Records Department [address] [place] [address] Emergency Department Summary 03/03/24 MR#: [id number] Acct: [id number] Name: EREN MERCHANT Rep #: [id number] : 1960 63 From: Jaguar Norwood DO [...] or room number for the patient from [facility]. Patient is willing to transfer to another facility. I did speak to a physician from [facility]. They do not have any beds available. I was able to obtain bed placement from [facility] after discussed the patient with Dr. Contreras. Patient was transferred via EMS to [facility]. Patient was updated of this plan and confirmed understanding. 03/04/24 1551 Cosigner Signature (if applicable): cc: Dr. Priyanka Smith MD * Signed ADDENDUM by Dr. Raul Cruz MD on 03/04/24 at 0654 To go over for this patient on telephone appointment clerk. She is accepted to the receiving facility in [place], but they do not have a bed. [...] intact Psych: Cooperative, appropriate mood and affect [facility] Medical History (Updated 03/03/24 @ 15:20 by Ericka Abdi) Prediabetes Hypothyroid Home Medications ???Medication ???Instructions ???Recorded ???Last Taken ???Type aspirin 81 mg chewable tablet 81 mg PO DAILY@0800 06/28/18 Unknown History cholecalciferol (vitamin D3) 25 1,000 unit PO DAILY 06/28/18 Unknown History mcg (1,000 unit) tablet (Vitamin D3) fludrocortisone 0.1 mg tablet 0.1 mg PO BID 06/28/18 Unknown History geriatric vgevipet-mdro-nbzm 1 ea PO DAILY 06/28/18 Unknown History (Complete Senior tablet) levothyroxine 75 mcg tablet 75 mcg PO DAILY 06/28/18 Unknown History potassium chloride 20 mEq 20 meq PO BID 06/28/18 Unknown History tablet,extended release(part/cryst) (Klor-Con M) sodium chloride 1 gram tablet 1 g PO TID 06/28/18 Unknown History Allergy/AdvReac Type Severity Reaction Status Date / Time cetirizine (From [facility]) Allergy Unknown Ve (more content not included)... Normal [facility] L501.4020on 03-03-2024 TROPONIN-I HS 15 pg/mL Normal 3.0-54.0 [facility] Comment on above: Result Comment: Thien emerson Note: New Test Units and Gender Specific Reference Ranges. For more information see Policy Stat Procedure [place] High Sensitivity Troponin (TNIH) and attachments. Performed By: #### L 501.4020 ####[facility] [address] [place], [address] L501.5425on 03-03-2024 TROPONIN-I HS 15 pg/mL Normal 3.0-54.0 [facility] Comment on above: Order Comment: 1Y Result Comment: Thien emerson Note: New Test Units and Gender Specific Reference Ranges. For more information see Policy Stat Procedure [place] High Sensitivity Troponin (TNIH) and attachments. Performed By: #### L 500.2500, L503.6620, L100.0100, L501.5200, L501.5425, L501.9520, L300.8000 ####[facility] [address] [place], [address] Magnesiumon 03-03-2024 Magnesium [Mass/Vol] 2.4 mg/dL Normal 1.6-2.6 [facility] Comment on above: Order Comment: 1Y Performed By: #### L 500.2500, L503.6620, L100.0100, L501.5200, L501.5425, L501.9520, L300.8000 ####[facility] [address] [place], [address] Spine Cervical without Contr ason 03-03-2024 Spine Cervical without Contras [facility] Imaging Services [address] [place] [address] Spine Cervical without Contras MR#: [id number] Acct: [id number] Name: EREN MERCHANT Rep #: [id number] : 1960 F 63 From: Marlee Mckeon MD PCP: Dr. Priyanka Smith MD Status: PRE ER Study: Spine Cervical without Contras Date of Exam: Exam# [id number] Ordering Dr: Jaguar Norwood DO [id number] INDICATION: Trauma EXAMINATION: CT CERVICAL SPINE - [...] at 15:11 EDT , CC: Dr. Jaguar Norwood, DO; Dr. Priyanka Smith MD Shipping Services Sales Representative: Signed Normal [facility] Thyroid Stim Hormone (TSH)on 03-03-2024 TSH 2.500 uIU/mL Normal 0.358-3.74 0 [facility] Comment on above: Order Comment: 1Y Performed By: #### L 500.2500, L503.6620, L100.0100, L501.5200, L501.5425, L501.9520, L300.8000 ####[facility] [address] [place], [address] Urinalysis, Completeon 03-03 WBC >100 SEEN Normal 0-5 [facility] Comment on above: Order Comment: CLEAN CATCH Performed By: #### L 400.0001 ####[facility] [address] [place], [address] BACTERIA 0 SEEN Normal None Seen [facility] Comment on above: Order Comment: CLEAN CATCH Performed By: #### L 400.0001 ####[facility] [address] [place], [address] EPI,SQUAMOUS 0 SEEN Normal 5-10 [facility] Comment on above: Order Comment: CLEAN CATCH Performed By: #### L 400.0001 ####[facility] [address] [place], [address] Mucus Ql (Urine sed) 0 SEEN Normal [facility] Comment on above: Order Comment: CLEAN CATCH Performed By: #### L 400.0001 ####[facility] [address] [place], [address] RBC 0 SEEN Normal 0-5 [facility] Comment on above: Order Comment: CLEAN CATCH Performed By: #### L 400.0001 ####[facility] [address] [place], [address] XR CHEST 2V FRONTAL/LATon XR CHEST 2V FRONTAL/LAT Normal [facility] XR Chest PA and Lateralon IMPRESSION: Linear atelectatic changes at the left lung base. Shipping Services Sales Representative: PSCB Transcribe Date/Time: Mar 03 2024 12:46P Dictated by : JIMENA CHI MD This examination was interpreted and the report reviewed and electronically signed by: JIMENA CHI MD on Mar 03 2024 12:47PM [facility] DIVISION OF RADIOLOGY * * *Final [...] the thoracic spine. DIVISION OF RADIOLOGY Provider, [facility] Leon [facility] - 03/03/2024 * * *Final Report* * [...] atelectatic changes at the left lung base. Shipping Services Sales Representative: JUAN Transcribe Date/Time: Mar 03 2024 12:46P Dictated by : JIMENA CHI MD This examination was interpreted and the report reviewed and electronically signed by: JIMENA CHI MD on Mar 03 2024 12:47PM EST [facility] Radiology Study observation (narrative) [facility] XR Chest PA and LateralOrder ed By: Ccf Provider on 03-03-2024 [facility] CNOVon 03-01-2024 CNOV Normal [facility] UA DIP, URINE (POC)on 2023 BILIRUBIN UA (POCT) Negative Negative [facility] CLARITY UA (POCT) Clear [facility] COLOR UA (POCT) Yellow [facility] GLUCOSE UA (POCT) 100 mg/dL Abnormal Negative [facility] Hemoglobin Ql (U) Large Abnormal Negative [facility] Interpretation and review of laboratory results Abnormal [facility] KETONE UA (POCT) Negative Negative mg/dL [facility] LEUKOCYTES UA (POCT) Small Abnormal Negative [facility] NITRITE UA (POCT) Negative Negative [facility] PH UA (POCT) 6.0 4.5 - 8.0 [facility] Protein Ql (U) 100 mg/dL Abnormal Negative [facility] SPECIFIC GRAVITY UA (POCT) 1.020 1.005 - 1.030 [facility] UROBILINOGEN UA (POCT) 0.2 Sallie l E.U./dL [facility] Location:[facility], [address] [place], [address] [facility] POINT OF CARE [facility] ANES POSTPROC EVALon 024 ANES POSTPROC EVAL HNO ID: [id number] Author: JAYRO DAVILA MD Service: Anesthesiology Author Type: Physician Type: Anesthesia Postprocedure Evaluation Filed: 11/22/2023 10:06 Note Text: POST ANESTHESIA EVALUATION NOTE : 1960 Procedure Summary Date: 11/22/23 Room / Location: [place] / [place] Anesthesia Start: 08 Anesthesia Stop: Procedure: EXTRACORPOREAL SHOCKWAVE LITHOTRIPSY UNILATERAL (Right: Renal) Diagnosis: Renal calculus, right (Renal calculus, right [N20.0]) Surgeons: Mathew Yang Jr., MD Responsible Provider: Jayro Davila MD Anesthesia Type: general ASA Status: 3 Anesthesia Type: No value filed. Last Vitals Vitals Value Taken Time BP 112/68 11/22/23 0930 Temp 36.2 ?C (97.2 ?F) 11/22/23927 HR SpO2 64 11/22/23 0930 Resp 16 11/22/23929 SpO2 97 % 11/22/23929 [...] November 22, 2023 TIME: 10:05 AM CSN: [id number] [facility] ANES PRE-OPon 11-22-2023 ANES PRE-OP HNO ID: [id number] Author: JAYRO DAVILA MD Service: Anesthesiology Author Type: Physician Type: Anesthesia Preprocedure Evaluation Filed: 11/22/2023 09:14 Note Text: ANESTHESIOLOGY DAY OF SURGERY NOTE : 1960 Procedure Information Date/Time: 11/22/23 0800 Procedure: EXTRACORPOREAL SHOCKWAVE LITHOTRIPSY UNILATERAL (Right: Renal) [place] Surgeons: Mathew Yang Jr., MD Estimated [...] PULMONARY (+) NSIP (nonspecific interstitial pneumonitis) [facility] I - PHYSICAL EVALUATION AIRWAY [...] and consent discussed: yes. Patient / Responsible Libertarian agrees to proceed: yes Patient / Surrogate [...] Eren Merchant DATE: November 22, 2023 TIME: 7:46 AM CSN: [id number] [facility] Rosendo 11-22-2023 [facility] SHONDA[facility] ([id number]) 1960 F Date Time Provider Department 11/22/23 MATHEW YANG JR During your visit today, we recorded the following information about you: Mathew Yang Jr., MD 11/22/2023 8:45 AM Signed [facility] or 11/22/23 Fu with me 4 weeks Kub prior ordered Dee Long 11/22/2023 10:29 AM Signed Called and left vox Patient is scheduled December 21, 2023 at 2pm, huron traci, guera prior Thank you Abdulkadir Elder MA 11/25/2023 9:27 AM Signed Addended by: ABDULKADIR PRADO on: 11/25/2023 09:27 AM Modules accepted: Orders Allergies As of Date: 11/22/2023 Noted Allergy Reaction ERYTHROMYCIN 09/14/2022 6 - Diarrhea HAY FEVER (SEASONAL ALLERGIES) 08/13/2009 ZYRTEC (CETIRIZINE HCL) 08/06/2014 9 - Itching Date Reviewed: 11/22/2023 Reviewed by: Luz Kohli, JUAN - Fully Assessed Reason for Visit: Appointment [186] Primary Visit Diagnosis:Kidney stone [N20.0] Order(s):XR ABDOMEN 1V SUPINE [4678320] Order #: [id number] FUTURE XR ABDOMEN 1V SUPINE [2790464] Order #: [id number] FUTURE Prescriptions as of 11/25/2023 - nitrofurantoin [...] Smear of Vagina and Vagin* 02/06/2010 Dyspareunia [ABW1512] 05/03/2006 02/06/2010 Fx Sacrum/Coccyx-Closed [S32.10XA, S32.2XXA] 05/31/2007 [...] Encounter Status:Closed by MATHEW YANG on 11/22/23 [facility] HISTORY PHYSICALon HISTORY PHYSICAL HNO ID: [id number] Author: MATHEW YANG JR, MD Service: Urology [...] November 22, 2023 TIME: 7:53 AM PAGER: [phone] Normal [facility] OPERATIVE NOon 11-22-2023 OPERATIVE NO HNO ID: [id number] Author: MATHEW YANG JR, MD Service: Urology [...] Yang Jr, MD OPERATIVE/PROCEDURE REPORT LOG ID: [id number] SURGERY/PROCEDURE DATE: 11/22/2023 INCISION/PROCEDURE START TIME: 8:13 AM INCISION CLOSE/PROCEDURE END TIME: 8:49 AM SURGEON(S)/PROCEDURALIST(S) AND QUALITATIVE FIELD PROJECT MANAGER(S): Surgeon(s) and Role: * Mathew Yang Jr., MD - Primary * Denver Callaway MD - Resident - Assisting No Additional Staff ANESTHESIA: General Procedures Right ESWL OPERATIVE/PROCEDURE REPORT LOG ID: [id number] SURGERY/PROCEDURE DATE: 11/22/2023 INCISION/PROCEDURE START TIME: 8:13 AM INCISION CLOSE/PROCEDURE END TIME: 8:49 AM SURGEON(S)/PROCEDURALIST(S) AND QUALITATIVE FIELD PROJECT MANAGER(S): Surgeon(s) and Role: * Mathew Yang Jr., MD - Primary * Denver Callaway MD - Resident - Assisting No Additional Staff SURGERY/PROCEDURE(S): Right extracorporeal shock wave lithotripsy ANESTHESIA: General SURGERY/PROCEDURE DETAILS: rEen Merchant is a 63 year old patient [...] 8:59 AM AGE: [age] year old Normal [facility] XR ABDOMEN 1V SUPINEon 11-21 XR ABDOMEN [...] spine, concerning for left-sided distal ureter calculus. Shipping Services Sales Representative: [facility] Transcribe Date/Time: Nov 22 2023 8:25A Dictated by : GUILLERMO DEE MD This examination was interpreted and the report reviewed and electronically signed by: GUILLERMO DEE MD on Nov 22 2023 8:35AM EST [id number] Normal [facility] UA DIP, URINE (POC)on 2023 BILIRUBIN UA (POCT) Negative Negative [facility] CLARITY UA (POCT) Slightly Cloudy Cl [facility] COLOR UA (POCT) Dark yellow [facility] GLUCOSE UA (POCT) Negative Negative mg/dL [facility] Hemoglobin Ql (U) Large Abnormal Negative [facility] Interpretation and review of laboratory results Abnormal [facility] KETONE UA (POCT) Negative Negative mg/dL [facility] LEUKOCYTES UA (POCT) Moderate Abnormal Negative [facility] NITRITE UA (POCT) Negative Negative [facility] PH UA (POCT) 5.5 4.5 - 8.0 [facility] Protein Ql (U) >=300 Abnormal Negative mg/dL [facility] SPECIFIC GRAVITY UA (POCT) 1.020 1.005 - 1.030 [facility] UROBILINOGEN UA (POCT) 0.2 Sallie l E.U./dL [facility] Location:[facility], [address] [place], [address] [facility] POINT OF CARE [facility] UA DIP, URINE (POC)on 2023 BILIRUBIN UA (POCT) Negative Negative [facility] CLARITY UA (POCT) Clear [facility] COLOR UA (POCT) Yellow [facility] GLUCOSE UA (POCT) Negative Negative mg/dL [facility] Hemoglobin Ql (U) Moderate Abnormal Negative [facility] KETONE UA (POCT) Negative Negative mg/dL [facility] LEUKOCYTES UA (POCT) Large Abnormal Negative [facility] NITRITE UA (POCT) Negative Negative [facility] PH UA (POCT) 6.0 4.5 - 8.0 [facility] Protein Ql (U) 100 mg/dL Abnormal Negative mg/dL [facility] SPECIFIC GRAVITY UA (POCT) 1.020 1.005 - 1.030 [facility] UROBILINOGEN UA (POCT) 0.2 E.U./dL Sallie l E.U./dL [facility] DBT Breast - bilateral scree ningon 08-18-2023 [facility] UA DIP, URINE (POC)on 2022 BILIRUBIN UA (POCT) Negative Negative [facility] CLARITY UA (POCT) Clear [facility] COLOR UA (POCT) Yellow [facility] GLUCOSE UA (POCT) Negative Negative mg/dL [facility] Hemoglobin Ql (U) Small Abnormal Negative [facility] KETONE UA (POCT) Negative Negative mg/dL [facility] LEUKOCYTES UA (POCT) Small Abnormal Negative [facility] NITRITE UA (POCT) Negative Negative [facility] PH UA (POCT) 7.0 4.5 - 8.0 [facility] Protein Ql (U) 100 mg/dL Abnormal Negative mg/dL [facility] SPECIFIC GRAVITY UA (POCT) 1.025 1.005 - 1.030 [facility] UROBILINOGEN UA (POCT) 1.0 E.U./dL Sallie l E.U./dL [facility] ANES POSTPROC EVALon 023 ANES POSTPROC EVAL HNO ID: [id number] Author: Jemal Meza MD Service: Anesthesiology Author Type: Anesthesiologist Type: Anesthesia Postprocedure Evaluation Filed: 01/28/2023 9:59 AM Note Text: POST ANESTHESIA EVALUATION NOTE : 1960 Procedure Summary Date: 01/28/23 Room / Location: [place] [address] / [place] Anesthesia Start: 736 Anesthesia Stop: 909 [...] January 28, 2023 TIME: 9:59 AM CSN: [id number] [facility] ANES PRE-OPon 01-28-2023 ANES PRE-OP HNO ID: [id number] Author: Jemal Meza MD Service: Anesthesiology Author Type: Anesthesiologist Type: Anesthesia Preprocedure Evaluation Filed: 01/28/2023 7:05 AM Note Text: ANESTHESIOLOGY DAY OF SURGERY NOTE : 1960 Procedure Information Date/Time: 01/28/23 0730 Procedures: INSERTION STIMULATOR GENERATOR BLADDER (Bilateral: Back) IMPLANT STIMULATOR LEAD(S) BLADDER INCISIONAL APPROACH (Bilateral: Back) FLUOROSCOPIC GUIDANCE/LOCALIZATION OF NEEDLE/CATHETER TIP FOR DIAG OR THERAPUETIC SPINE/PARASPINOUS INJECTION PROCEDURES (Bilateral: Back) Location: [place] Surgeons: John Mg MD Estimated body [...] and consent discussed: yes. Patient / Responsible Libertarian agrees to proceed: yes Patient / Surrogate [...] yes Vitals Value Taken Time BP 123/66 01/28/23625 Pulse Resp 16 01/28/23625 Temp 36.6 ?C [...] January 28, 2023 TIME: 7:05 AM CSN: [id number] [facility] OPERATIVE NOon 01-28-2023 OPERATIVE NO HNO ID: [id number] Author: John Mg MD Service: Urogynecology Author Type: Physician Type: Operative Report Filed: 01/30/2023 4:29 PM Note Text: OPERATIVE/PROCEDURE REPORT LOG ID: [id number] Surgery/Procedure Date: 01/28/2023 Incision/Procedure Start Time: 7:59 AM Incision Close/Procedure End Time: 9:00 AM Surgeon(s)/Proceduralist(s) and Software Clerk(s): Surgeon(s) and Role: * John Mg MD - Primary * Darin Schulz MD - Resident - Assisting * Claudette Rojo MD - Fellow * Wiley Benitez MD Registered Nurse Thermite Welder: Betty García RN Procedure(s): 1. InterStim Peripheral Nerve Stimulation Stage 1- Incision and implantation of tined quadripolar lead electrodes into left S3 Foramen (92496) 2. Fluoroscopic guidance for needle placement (61136) 3. Implantation of InterStim II neurogenerator, electrical [...] Implant Name Type Inv. Item Serial No. Box Repairer Lot No. LRB No. Used Action LEAD INTRSTIM MRI 28CM - [id number] Lead LEAD INTRSTIM MRI 28CM [employer] [id number] N/A 1 Implanted INTERSTIM X RECHARGE FREE NEUROSTIMULATOR - [id number] Stimulator INTERSTIM X RECHARGE FREE NEUROSTIMULATOR [id number] [employer] Left 1 Implanted Pre-Op/Pre-Procedure Diagnosis: [...] 2. The pa (more content not included)... [facility] XR FLUOROSCOPYon 01-28-2023 XR FLUOROSCOPY * [...] Please refer to the performing LIP's report. Shipping Services Sales Representative: JUAN Transcribe Date/Time: Jan 28 2023 10:20A Dictated by : ALLYSON BUTLER MD This examination was interpreted and the report reviewed and electronically signed by: ALLYSON BUTLER MD on Jan 28 2023 10:21AM EST [id number] [facility] HISTORY PHYSICALon 3 HISTORY PHYSICAL HNO ID: [id number] Author: Abdulkadir Amaya PA-C Service: ? Author Type: Physician Software Clerk Type: HANDP Filed: 01/12/2023 11:08 AM Note [...] manage symptoms. Procedure scheduled on 01/28/2023 at [place]. REVIEW OF SYSTEMS: General: No weight loss, malaise or fevers. Neurological: No history of TIA's, stroke, MASTER CHEF tumor, impaired sensorium, hemiplegia, paraplegia or quadraplegia. [...] arrhythmia, atrial fibrillation, CHF, hyperlipidemia, hypertension, recent [place] and murmur/valvular heart disease. 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 Normal [facility] LUNG VOLUMESon 11-16-2022 [facility] SPIROMETRY BASELINE ONLYon 0 7-03-2023 DLCO (ml/min/mmHg) 17.31 ml/min/mmHg [facility] DLCO/VA (ml/min/mmHg/L) 3.99 ml/min/mmHg/L [facility] ERV BOX (L) 0.42 L [facility] VCU08-90% PRE (L/S) 3.85 L/S [facility] FEV1 PRE (L) 2.67 L [facility] FEV1/FVC PRE (%) 86 % [facility] FRC Box (L) 2.34 L [facility] FVC PRE (L) 3.10 L [facility] IC BOX (L) 2.66 L [facility] PEF PRE (L/S) 6.31 L/S [facility] RV Box (L) 1.79 L [facility] RV/TLC Box (%) 37 % [facility] TLC Box (L) 4.87 L [facility] VA (L) 4.33 L [facility] VC (L) BOX 3.[address] [facility] [address] CHEST WO IVCONon 10-28-19 23 [facility] NM RENAL FLOW/FXN W PHARMon 10-15-2022 [...] pelvis dilation. Split differential function, as described. [employer] Sales Representative: JUAN Transcribe Date/Time: Oct 15 2022 11:17A Dictated by : JEMAL HANNA DO This examination was interpreted and the report reviewed and electronically signed by: JEMAL HANNA DO on Oct 15 2022 11:46AM EST [id number] Normal [facility] XR Abdomen Supine and Uprigh ton 08-13-2022 IMPRESSION: Findings as discussed under Results portion of report. [employer] Sales Representative: JUAN Transcribe Date/Time: Aug 13 2022 11:10A Dictated by : KARLA BENAVIDEZ DO This examination was interpreted and the report reviewed and electronically signed by: KARLA BENAVIDEZ DO on Aug 13 2022 11:13AM EST [facility] * * *Final Report* * * [...] be identified. No bony abnormalities are seen [facility] Provider, [facility] - 08/13/2022 * * *Final Report* * [...] as discussed under Results portion of report. [employer] Sales Representative: JUAN Transcribe Date/Time: Aug 13 2022 11:10A Dictated by : KARLA BENAVIDEZ DO This examination was interpreted and the report reviewed and electronically signed by: KARLA BENAVIDEZ DO on Aug 13 2022 11:13AM EST [facility] XR Abdomen Supine and Uprigh tOrdered By: Ccf Provider on 08-13-2022 [facility] XR CHEST 2V FRONTAL/LATon [facility] XR Chest PA and Lateralon IMPRESSION: 1. Chronic fibrotic and other densities in the mid to lower lung saavedra bilaterally.. 2. Postsurgical changes right lower lobe. 3. No acute changes. [employer] Sales Representative: JUAN Transcribe Date/Time: Aug 12 2022 6:58P Dictated by : MAHENDRA CARRILLO MD This examination was interpreted and the report reviewed and electronically signed by: MAHENDRA CARRILLO MD on Aug 12 2022 7:04PM [facility] DIVISION OF RADIOLOGY * * *Final [...] soft tissues: Unremarkable. DIVISION OF RADIOLOGY Provider, [facility] - 08/12/2022 * * *Final Report* * [...] right lower lobe. 3. No acute changes. [employer] Sales Representative: JUAN Transcribe Date/Time: Aug 12 2022 6:58P Dictated by : MAHENDRA CARRILLO MD This examination was interpreted and the report reviewed and electronically signed by: MAHENDRA CARRILLO MD on Aug 12 2022 7:04PM EST [facility] Radiology Study observation (narrative) [facility] XR Chest PA and LateralOrder ed By: Ccf Provider on 08-12-2022 [facility] XR ABDOMEN 1V SUPINEon 08-11 XR [...] as discussed under Results portion of report. [employer] Sales Representative: JUAN Transcribe Date/Time: Aug 13 2022 11:10A Dictated by : KARLA BENAVIDEZ DO This examination was interpreted and the report reviewed and electronically signed by: KARLA BENAVIDEZ DO on Aug 13 2022 11:13AM EST [id number] Normal [facility] XR Abdomen Supine and Uprigh ton 08-11-2022 Radiology Study observation (narrative) [facility] CHYNA SCREENING W TOMOon 07-23 [facility] STREP A MOLECULAR (POC)on Procedural Control Valid [facility] Strep A (POCT) Negative Negative [facility] CT UROGRAM WO/[facility] UA DIP, URINE (POC)on 2022 BILIRUBIN UA (POCT) Negative Negative [facility] CLARITY UA (POCT) Clear [facility] COLOR UA (POCT) [place] [facility] GLUCOSE UA (POCT) Negative Negative mg/dL [facility] HEMOGLOBIN/BLOOD UA (POCT) Large Abnormal Negative [facility] KETONE UA (POCT) Negative Negative mg/dL [facility] LEUKOCYTES UA (POCT) Small Abnormal Negative [facility] NITRITE UA (POCT) Negative Negative [facility] PH UA (POCT) 6.5 4.5 - 8.0 [facility] Protein Ql (U) 100 mg/dL Abnormal Negative mg/dL [facility] SPECIFIC GRAVITY UA (POCT) 1.015 1.005 - 1.030 [facility] UROBILINOGEN UA (POCT) 0.2 E.U./dL [place] E.U./dL [facility] CT CHEST WO IVCONon 04-06-20 [facility] UA DIP, URINE (POC)on 2021 BILIRUBIN UA (POCT) Negative Negative [facility] CLARITY UA (POCT) Clear [facility] COLOR UA (POCT) Yellow [facility] GLUCOSE UA (POCT) Negative Negative mg/dL [facility] HEMOGLOBIN/BLOOD UA (POCT) Moderate Abnormal Negative [facility] KETONE UA (POCT) Negative Negative mg/dL [facility] LEUKOCYTES UA (POCT) Trace Abnormal Negative [facility] NITRITE UA (POCT) Negative [facility] PH UA (POCT) 5.0 4.5 - 8.0 [facility] Protein Ql (U) Negative Negative mg/dL [facility] SPECIFIC GRAVITY UA (POCT) >=1.030 1.005 - 1.030 [facility] UROBILINOGEN UA (POCT) 0.2 E.U./dL [place] E.U./dL [facility] URINE CULTUREon 03-18-2022 Bacteria identified Cx Nom (U) >=100,000 CFU/ml Escherichia coli Abnormal [facility] Bacteria identified Cx Nom (U) 50,000-<100,000 CFU/ml Proteus mirabilis Abnormal [facility] UA DIP, URINE (POC)on 2021 BILIRUBIN UA (POCT) Negative Negative [facility] CLARITY UA (POCT) Clear [facility] COLOR UA (POCT) Yellow [facility] GLUCOSE UA (POCT) Negative Negative mg/dL [facility] HEMOGLOBIN/BLOOD UA (POCT) Small Abnormal Negative [facility] KETONE UA (POCT) Negative Negative mg/dL [facility] LEUKOCYTES UA (POCT) Moderate Abnormal Negative [facility] NITRITE UA (POCT) Negative Negative [facility] PH UA (POCT) 6.5 4.5 - 8.0 [facility] Protein Ql (U) Negative Negative mg/dL [facility] SPECIFIC GRAVITY UA (POCT) 1.020 1.005 - 1.030 [facility] UROBILINOGEN UA (POCT) 0.2 E.U./dL [place] E.U./dL [facility] URINE CULTUREon 03-16-2022 Bacteria identified Cx Nom (U) Invalid Interpretation Code [facility] US FEMALE PELVIS TRANSVAGon 12-01-2021 [facility] UA DIP, URINE (POC)on 2021 BILIRUBIN UA (POCT) Negative Negative [facility] CLARITY UA (POCT) Clear [facility] COLOR UA (POCT) Yellow [facility] GLUCOSE UA (POCT) Negative Negative mg/dL [facility] HEMOGLOBIN/BLOOD UA (POCT) Moderate Abnormal Negative [facility] KETONE UA (POCT) Negative Negative mg/dL [facility] LEUKOCYTES UA (POCT) Negative Negative [facility] NITRITE UA (POCT) Negative Negative [facility] PH UA (POCT) 5.0 4.5 - 8.0 [facility] Protein Ql (U) Negative Negative mg/dL [facility] SPECIFIC GRAVITY UA (POCT) >=1.030 1.005 - 1.030 [facility] UROBILINOGEN UA (POCT) 0.2 E.U./dL [place] E.U./dL [facility] UA DIP, URINE (POC)on 2021 BILIRUBIN UA (POCT) Negative Negative [facility] CLARITY UA (POCT) Clear [facility] COLOR UA (POCT) Yellow [facility] GLUCOSE UA (POCT) Negative Negative mg/dL [facility] HEMOGLOBIN/BLOOD UA (POCT) Large Abnormal Negative [facility] KETONE UA (POCT) Negative Negative mg/dL [facility] LEUKOCYTES UA (POCT) Small Abnormal Negative [facility] NITRITE UA (POCT) Negative Negative [facility] PH UA (POCT) 5.0 4.5 - 8.0 [facility] Protein Ql (U) 30 mg/dL Abnormal Negative mg/dL [facility] SPECIFIC GRAVITY UA (POCT) 1.015 1.005 - 1.030 [facility] UROBILINOGEN UA (POCT) 0.2 E.U./dL [place] E.U./dL [facility] VARICELLA ZOSTER IGGon 08-14 Varicella Zoster IgG, Qual Positive Positive [facility] XR Ankle - right AP and Late ral and obliqueon 06-26-2020 IMPRESSION: Osseous demineralization with nondisplaced fracture of the lateral malleolus. [employer] Sales Representative: JUAN Transcribe Date/Time: Jun 26 2020 4:20P Dictated by : JIMENA CHI MD This examination was interpreted and the report reviewed and electronically signed by: JIMENA CHI MD on Jun 26 2020 4:25PM [facility] DIVISION OF RADIOLOGY * * *Final [...] Plantar calcaneal enthesophyte. DIVISION OF RADIOLOGY Provider, [facility] - 06/26/2020 * * *Final Report* * [...] with nondisplaced fracture of the lateral malleolus. [employer] Sales Representative: PSCB Transcribe Date/Time: Jun 26 2020 4:20P Dictated by : JIMENA CHI MD This examination was interpreted and the report reviewed and electronically signed by: JIMENA CHI MD on Jun 26 2020 4:25PM EST [facility] Radiology Study observation (narrative) [facility] XR Ankle - right AP and Late ral and obliqueOrdered By: Ccf Provider on 06-26-2020 [facility] Vital Signs Date Time Vital Sign Value Performing Clinician Revai heron 01-30-2025 09:51-0400 Body height 165.1 cm Jasmyne Day MD Work Phone: [facility] 01-30-2025 09:51-0400 Body mass index (BMI) [Ratio] 27.19 kg/m2 Jasmyne Day MD Work Phone: [facility] 01-30-2025 09:51-0400 Body weight 74.12 kg Jasmyne Day MD Work Phone: [facility] 01-30-2025 09:51-0400 Diastolic blood pressure 78 mm[Hg] Jasmyne Day MD Work Phone: [facility] 01-30-2025 09:51-0400 Heart rate 76 /min Jasmyne Day MD Work Phone: [facility] 01-30-2025 09:51-0400 SaO2% (BldA) [Mass fraction] 96 % Jasmyne Day MD Work Phone: [facility] 01-30-2025 09:51-0400 Systolic blood pressure 124 mm[Hg] Jasmyne Day MD Work Phone: [facility] 01-26-2025 04:35-0400 Body temperature 97.59 [degF] [employer] Work Phone: [facility] [employer] 01-26-2025 04:35-0400 Diastolic blood pressure 78 mm[Hg] [employer] Work Phone: [facility] [employer] 01-26-2025 04:35-0400 Heart rate 82 /min [employer] Work Phone: [facility] [employer] 01-26-2025 04:35-0400 Respiratory rate 16 /min [employer] Work Phone: [facility] [employer] 01-26-2025 04:35-0400 SaO2% (BldA) [Mass fraction] 100 % [employer] Work Phone: [facility] [employer] 01-26-2025 04:35-0400 Systolic blood pressure 127 mm[Hg] [employer] Work Phone: [facility] [employer] 01-22-2025 03:52-0400 Body height 166.4 cm [employer] Work Phone: [facility] [employer] 01-22-2025 03:52-0400 Body mass index (BMI) [Ratio] 27.7 kg/m2 [employer] Work Phone: [facility] [employer] 01-22-2025 03:52-0400 Body weight 76.66 kg [employer] Work Phone: [facility] [employer] 01-22-2025 03:13-0400 Body temperature 99.5 [degF] Dr. Priyanka Smith MD Work Phone: [facility] 01-22-2025 03:13-0400 Diastolic blood pressure 73 mm[Hg] Dr. Priyanka Smith MD Work Phone: [facility] 01-22-2025 03:13-0400 Heart rate 113 /min Dr. Priyanka Smith MD Work Phone: [facility] 01-22-2025 03:13-0400 Respiratory rate 19 /min Dr. Priyanka Smith MD Work Phone: [facility] 01-22-2025 03:13-0400 SaO2% (BldA) [Mass fraction] 98 % Dr. Priyanka Smith MD Work Phone: [phone] [place] [address] 01-22-2025 03:13-0400 Systolic blood pressure 121 mm[Hg] Dr. Priyanka Smith MD Work Phone: [facility] 01-21-2025 19:26-0400 Body height 165.[address] Priyanka Smith MD Work Phone: [facility] 01-21-2025 19:26-0400 Body mass index (BMI) [Ratio] 27.6 kg/m2 Dr. Priyanka Smith MD Work Phone: [facility] 01-21-2025 19:26-0400 Body weight 75.[address] Priyanka Smith MD Work Phone: [facility] 01-10-2025 08:32-0400 Body height 165.1 cm Jasmyne Day MD Work Phone: [facility] 01-10-2025 08:32-0400 Body mass index (BMI) [Ratio] 27.12 kg/m2 Jasmyne Day MD Work Phone: [facility] 01-10-2025 08:32-0400 Body weight 73.94 kg Jasmyne Day MD Work Phone: [facility] 01-09-2025 14:19-0400 Body height 165.1 cm Mathew Yang Jr., MD Work Phone: [facility] 01-09-2025 14:19-0400 Body mass index (BMI) [Ratio] 26.96 kg/m2 Mathew Yang Jr., MD Work Phone: [facility] 01-09-2025 14:19-0400 Body weight 73.48 kg Mathew Yang Jr., MD Work Phone: [facility] 12-27-2024 13:52-0400 Diastolic blood pressure 82 mm[Hg] Peyton Haagen D[employer] BOX TENDER.DIRECTOR OF FIELD COORDINATION Work Phone: [facility] 12-27-2024 13:52-0400 Heart rate 82 /min Peyton Haagen [employer] BOX TENDER.DIRECTOR OF FIELD COORDINATION Work Phone: [facility] 12-27-2024 13:52-0400 Respiratory rate 16 /min Peyton Haagen [employer] BOX TENDER.DIRECTOR OF FIELD COORDINATION Work Phone: [facility] 12-27-2024 13:52-0400 SaO2% (BldA) [Mass fraction] 100 % Peyton Haagen [employer] BOX TENDER.DIRECTOR OF FIELD COORDINATION Work Phone: [facility] 12-27-2024 13:52-0400 Systolic blood pressure 114 mm[Hg] Peyton Haagen [employer] BOX TENDER.DIRECTOR OF FIELD COORDINATION Work Phone: [facility] 12-22-2024 14:10-0400 Body temperature 98.5 [degF] Dr. Priyanka Smith MD Work Phone: [facility] 12-22-2024 14:10-0400 Diastolic blood pressure 86 mm[Hg] Dr. Priyanka Smith MD Work Phone: [facility] 12-22-2024 14:10-0400 Heart rate 80 /min Dr. Priyanka Smith MD Work Phone: [facility] 12-22-2024 14:10-0400 Respiratory rate 16 /min Dr. Priyanka Smith MD Work Phone: [facility] 12-22-2024 14:10-0400 SaO2% (BldA) [Mass fraction] 100 % Dr. Priyanka Smith MD Work Phone: [facility] 12-22-2024 14:10-0400 Systolic blood pressure 121 mm[Hg] Dr. Priyanka Smith MD Work Phone: [facility] 12-22-2024 12:21-0400 Body height 165.[address] Priyanka Smith MD Work Phone: [facility] 12-22-2024 12:21-0400 Body mass index (BMI) [Ratio] 26 kg/m2 Dr. Priyanka Smith MD Work Phone: [facility] 12-22-2024 12:21-0400 Body weight [address] Priyanka Smith MD Work Phone: [facility] 12-13-2024 07:57-0400 Diastolic blood pressure 83 mm[Hg] Cyndi Podlogar [employer] TENDER.DIRECTOR OF FIELD COORDINATION Work Phone: [facility] 12-13-2024 07:57-0400 Systolic blood pressure 121 mm[Hg] Cyndi Podlogar D[employer] BOX TENDER.DIRECTOR OF FIELD COORDINATION Work Phone: [facility] 12-13-2024 07:37-0400 Body mass index (BMI) [Ratio] 26.49 kg/m2 Cyndi Podlogar D[employer] BOX TENDER.DIRECTOR OF FIELD COORDINATION Work Phone: [facility] 12-13-2024 07:37-0400 Body weight 72.21 kg Cyndi Podlogar D[employer] BOX TENDER.DIRECTOR OF FIELD COORDINATION Work Phone: [facility] 12-13-2024 07:37-0400 Heart rate 92 /min Cyndi Podlogar D[employer] BOX TENDER.DIRECTOR OF FIELD COORDINATION Work Phone: [facility] 12-13-2024 07:37-0400 Respiratory rate 12 /min Cyndi Podlogar D[employer] BOX TENDER.DIRECTOR OF FIELD COORDINATION Work Phone: [facility] 12-06-2024 08:07-0400 Body height 165.1 cm Charis Plotts [employer]ER.CNM Work Phone: [facility] 12-06-2024 08:07-0400 Body mass index (BMI) [Ratio] 26.69 kg/m2 Charis Plotts [employer] TENDER.CNM Work Phone: [facility] 12-06-2024 08:07-0400 Body weight 72.76 kg Charis Plotts [employer] TENDER.CNM Work Phone: [facility] 12-06-2024 08:07-0400 Diastolic blood pressure 60 mm[Hg] Charis Peterchsaidy [employer] TENDER.CNM Work Phone: [facility] 12-06-2024 08:07-0400 Systolic blood pressure 98 mm[Hg] Charis Lopez [employer]ER.CNM Work Phone: [facility] 11-29-2024 09:39-0400 SaO2% (BldA) [Mass fraction] 99 % Jasmyne Day MD Work Phone: [facility] 11-29-2024 09:35-0400 Body height 165.1 cm Jasmyne Day MD Work Phone: [facility] 11-29-2024 09:35-0400 Body mass index (BMI) [Ratio] 26.33 kg/m2 Jasmyne Day MD Work Phone: [facility] 11-29-2024 09:35-0400 Body weight 71.76 kg Jasmyne Day MD Work Phone: [facility] 11-16-2024 07:35-0400 Body height 165.1 cm Gemma Roberts [employer] T[employer]ER.DIRECTOR OF FIELD COORDINATION Work Phone: [facility] 11-16-2024 07:35-0400 Body mass index (BMI) [Ratio] 26.45 kg/m2 Gemma Roberts [employer] TENDER.DIRECTOR OF FIELD COORDINATION Work Phone: [facility] 11-16-2024 07:35-0400 Body weight 72.1 kg Gemma Roberts [employer] TENDER.DIRECTOR OF FIELD COORDINATION Work Phone: [facility] 11-16-2024 07:35-0400 SaO2% (BldA) [Mass fraction] 98 % Gemma Roberts [employer] TENDER.DIRECTOR OF FIELD COORDINATION Work Phone: [facility] 10-31-2024 08:48-0400 Body mass index (BMI) [Ratio] 27.9 kg/m2 German rGubbs [employer] B[employer] TENDER.DIRECTOR OF FIELD COORDINATION Work Phone: [facility] 10-31-2024 08:48-0400 Body weight 72.58 kg German Grubbs [employer] TENDER.DIRECTOR OF FIELD COORDINATION Work Phone: [facility] 10-31-2024 08:48-0400 Diastolic blood pressure 71 mm[Hg] German Grubbs [employer] B[employer] TENDER.DIRECTOR OF FIELD COORDINATION Work Phone: [facility] 10-31-2024 08:48-0400 Heart rate 67 /min German Grubbs [employer] B[employer] TENDER.DIRECTOR OF FIELD COORDINATION Work Phone: [facility] 10-31-2024 08:48-0400 Respiratory rate 16 /min German Grubbs [employer] TENDER.DIRECTOR OF FIELD COORDINATION Work Phone: [facility] 10-31-2024 08:48-0400 Systolic blood pressure 109 mm[Hg] German Grubbs [employer] TENDER.DIRECTOR OF FIELD COORDINATION Work Phone: [facility] 10-26-2024 09:19-0400 Body height 161.3 cm Karen Alcantara MD Work Phone: [facility] 10-26-2024 09:19-0400 Body mass index (BMI) [Ratio] 27.9 kg/m2 Karen Alcantara MD Work Phone: [facility] 10-26-2024 09:19-0400 Body weight 72.58 kg Karen Alcantara MD Work Phone: [facility] 10-26-2024 09:19-0400 Diastolic blood pressure 58 mm[Hg] Karen Alcantara MD Work Phone: [facility] 10-26-2024 09:19-0400 Heart rate 101 /min Karen Alcantara MD Work Phone: [facility] 10-26-2024 09:19-0400 Respiratory rate 14 /min Karen Alcantara MD Work Phone: [facility] 10-26-2024 09:19-0400 SaO2% (BldA) [Mass fraction] 100 % Karen Alcantara MD Work Phone: [facility] 10-26-2024 09:19-0400 Systolic blood pressure 102 mm[Hg] Karen Alcantara MD Work Phone: [facility] 10-26-2024 09:18-0400 Body height 161.3 cm Pulm Wstr Work Phone: [facility] 10-26-2024 09:18-0400 Body mass index (BMI) [Ratio] 27.9 kg/m2 Pulm Wstr Work Phone: [facility] 10-26-2024 09:18-0400 Body weight 72.58 kg Pulm Wstr Work Phone: [facility] 10-26-2024 09:18-0400 Heart rate 101 /min Pulm Wstr Work Phone: [facility] 10-26-2024 09:18-0400 Respiratory rate 14 /min Pulm Wstr Work Phone: [facility] 10-26-2024 09:18-0400 SaO2% (BldA) [Mass fraction] 100 % Pulm Wstr Work Phone: [facility] 09-22-2024 12:56-0400 Diastolic blood pressure 62 mm[Hg] Rika Teri [employer] TENDER.DIRECTOR OF FIELD COORDINATION Work Phone: [facility] 09-22-2024 12:56-0400 Heart rate 117 /min Rika Teri [employer] TENDER.DIRECTOR OF FIELD COORDINATION Work Phone: [facility] 09-22-2024 12:56-0400 Systolic blood pressure 85 mm[Hg] Rika Teri [employer] B[employer] TENDER.DIRECTOR OF FIELD COORDINATION Work Phone: [facility] 09-22-2024 12:54-0400 Body height 165.1 cm Rika Teri [employer] B[employer] TENDER.DIRECTOR OF FIELD COORDINATION Work Phone: [facility] 09-22-2024 12:54-0400 Body mass index (BMI) [Ratio] 27.26 kg/m2 Rika Teri [employer] TENDER.DIRECTOR OF FIELD COORDINATION Work Phone: [facility] 09-22-2024 12:54-0400 Body weight 74.3 kg Rika Teri [employer] TENDER.DIRECTOR OF FIELD COORDINATION Work Phone: [facility] 09-22-2024 12:54-0400 SaO2% (BldA) [Mass fraction] 100 % Rika Teri [employer] B[employer] TENDER.DIRECTOR OF FIELD COORDINATION Work Phone: [facility] 09-11-2024 11:46-0400 Diastolic blood pressure 64 mm[Hg] Jasmyne Day MD Work Phone: [facility] 09-11-2024 11:46-0400 Heart rate 116 /min Jasmyne Day MD Work Phone: [facility] 09-11-2024 11:46-0400 Respiratory rate 18 /min Jasmyne Day MD Work Phone: [facility] 09-11-2024 11:46-0400 SaO2% (BldA) [Mass fraction] 99 % Jasmyne Day MD Work Phone: [facility] 09-11-2024 11:46-0400 Systolic blood pressure 104 mm[Hg] Jasmyne Day MD Work Phone: [facility] 08-31-2024 10:30-0400 Body mass index (BMI) [Ratio] 28.47 kg/m2 Priyanka Smith MD Work Phone: [facility] 08-31-2024 10:30-0400 Body weight 77.6 kg Priyanka Smith MD Work Phone: [facility] 08-31-2024 10:30-0400 Diastolic blood pressure 82 mm[Hg] Priyanka Smith MD Work Phone: [facility] 08-31-2024 10:30-0400 Heart rate 80 /min Priyanka Smith MD Work Phone: [facility] 08-31-2024 10:30-0400 Respiratory rate 16 /min Priyanka Smith MD Work Phone: [facility] 08-31-2024 10:30-0400 Systolic blood pressure 112 mm[Hg] Priyanka Smith MD Work Phone: [facility] 08-31-2024 09:41-0400 Body mass index (BMI) [Ratio] 28.39 kg/m2 Latha Cuevas MD Work Phone: [facility] 08-31-2024 09:41-0400 Body temperature 98.71 [degF] Latha Cuevas MD Work Phone: [facility] 08-31-2024 09:41-0400 Body weight 77.38 kg Latha Cuevas MD Work Phone: [facility] 08-31-2024 09:41-0400 Diastolic blood pressure 66 mm[Hg] Latha Cuevas MD Work Phone: [facility] 08-31-2024 09:41-0400 Respiratory rate 14 /min Latha Cuevas MD Work Phone: [facility] 08-31-2024 09:41-0400 Systolic blood pressure 118 mm[Hg] Latha Cuevas MD Work Phone: [facility] 08-09-2024 13:49-0400 Body height 165.1 cm Maira Coyner [employer] TENDER.DIRECTOR OF FIELD COORDINATION Work Phone: [facility] 08-09-2024 13:49-0400 Body mass index (BMI) [Ratio] 28.29 kg/m2 Maira Coyner D[employer] TENDER.DIRECTOR OF FIELD COORDINATION Work Phone: [facility] 08-09-2024 13:49-0400 Body weight 77.11 kg Maira Coyner [employer] TENDER.DIRECTOR OF FIELD COORDINATION Work Phone: [facility] 08-03-2024 09:55-0400 Body height 165.1 cm Bogdan Rboerts MD Work Phone: [facility] 08-03-2024 09:55-0400 Body mass index (BMI) [Ratio] 28.84 kg/m2 Bogdan Roberts MD Work Phone: [facility] 08-03-2024 09:55-0400 Body weight 78.6 kg Bogdan Roberts MD Work Phone: [facility] 08-03-2024 09:55-0400 Diastolic blood pressure 76 mm[Hg] Bogdan Roberts MD Work Phone: [facility] 08-03-2024 09:55-0400 Heart rate 88 /min Bogdan Roberts MD Work Phone: [facility] 08-03-2024 09:55-0400 SaO2% (BldA) [Mass fraction] 99 % Bogdan Roberts MD Work Phone: [facility] 08-03-2024 09:55-0400 Systolic blood pressure 114 mm[Hg] Bogdan Roberts MD Work Phone: [facility] 07-31-2024 11:21-0400 Diastolic blood pressure 64 mm[Hg] Juwan Amadou [employer] TENDER.DIRECTOR OF FIELD COORDINATION Work Phone: [facility] 07-31-2024 11:21-0400 Systolic blood pressure 92 mm[Hg] Juwan Amadou [employer] TENDER.DIRECTOR OF FIELD COORDINATION Work Phone: [facility] 07-31-2024 10:49-0400 Body mass index (BMI) [Ratio] 29.29 kg/m2 Juwan Land [employer] TENDER.DIRECTOR OF FIELD COORDINATION Work Phone: [facility] 07-31-2024 10:49-0400 Body weight 79.83 kg Juwan Land [employer] TENDER.DIRECTOR OF FIELD COORDINATION Work Phone: [facility] 07-31-2024 10:49-0400 Heart rate 90 /min Juwan Land [employer] TENDER.DIRECTOR OF FIELD COORDINATION Work Phone: [facility] 07-31-2024 10:49-0400 Respiratory rate 16 /min Juwan Land [employer] TENDER.DIRECTOR OF FIELD COORDINATION Work Phone: [facility] 07-31-2024 10:49-0400 SaO2% (BldA) [Mass fraction] 100 % Juwan Land [employer] TENDER.DIRECTOR OF FIELD COORDINATION Work Phone: [facility] 07-10-2024 09:36-0500 Body height 165.1 cm Jacqueline Valadez APRN.DIRECTOR OF FIELD COORDINATION Work Phone: [facility] 07-10-2024 09:36-0500 Body mass index (BMI) [Ratio] 29.64 kg/m2 Jacqueline Valadez [employer]OX TENDER.DIRECTOR OF FIELD COORDINATION Work Phone: [facility] 07-10-2024 09:36-0500 Body weight 80.8 kg Jacqueline Tannhof DUST BOX TENDER.DIRECTOR OF FIELD COORDINATION Work Phone: [facility] 07-10-2024 09:36-0500 Diastolic blood pressure 66 mm[Hg] Ajcqueline Tannhof DUST BOX TENDER.DIRECTOR OF FIELD COORDINATION Work Phone: [facility] 07-10-2024 09:36-0500 Heart rate 88 /min Jacqueline Tannhof D[employer] BOX TENDER.DIRECTOR OF FIELD COORDINATION Work Phone: [facility] 07-10-2024 09:36-0500 Respiratory rate 16 /min Jacqueline Tannhof DUST BOX TENDER.DIRECTOR OF FIELD COORDINATION Work Phone: [facility] 07-10-2024 09:36-0500 Systolic blood pressure 98 mm[Hg] Jacqueline Tannhof DUST BOX TENDER.DIRECTOR OF FIELD COORDINATION Work Phone: [facility] 06-20-2024 08:44-0500 Body mass index (BMI) [Ratio] 28.96 kg/m2 Becca Click DUST BOX TENDER.DIRECTOR OF FIELD COORDINATION Work Phone: [facility] 06-20-2024 08:44-0500 Body weight 78.93 kg Becca Click D[employer] BOX TENDER.DIRECTOR OF FIELD COORDINATION Work Phone: [facility] 06-20-2024 08:44-0500 Diastolic blood pressure 69 mm[Hg] Becca Click DUST BOX TENDER.DIRECTOR OF FIELD COORDINATION Work Phone: [facility] 06-20-2024 08:44-0500 Heart rate 80 /min Becca Click D[employer] BOX TENDER.DIRECTOR OF FIELD COORDINATION Work Phone: [facility] 06-20-2024 08:44-0500 SaO2% (BldA) [Mass fraction] 97 % Becca Click D[employer] BOX TENDER.DIRECTOR OF FIELD COORDINATION Work Phone: [facility] 06-20-2024 08:44-0500 Systolic blood pressure 99 mm[Hg] Becca Click D[employer] BOX TENDER.DIRECTOR OF FIELD COORDINATION Work Phone: [facility] 05-30-2024 07:45-0500 Body height 165.1 cm Gemma Roberts D[employer] BOX TENDER.DIRECTOR OF FIELD COORDINATION Work Phone: [facility] 05-30-2024 07:45-0500 Body mass index (BMI) [Ratio] 29.86 kg/m2 Gemma Roberts D[employer] BOX TENDER.DIRECTOR OF FIELD COORDINATION Work Phone: [facility] 05-30-2024 07:45-0500 Body weight 81.4 kg Gemma Roberts D[employer] BOX TENDER.DIRECTOR OF FIELD COORDINATION Work Phone: [facility] 05-30-2024 07:45-0500 Diastolic blood pressure 89 mm[Hg] Gemma Roberts D[employer] BOX TENDER.DIRECTOR OF FIELD COORDINATION Work Phone: [facility] Comment on above: Provider notified 05-30-2024 07:45-0500 Heart rate 77 /min Gemma Roberts D[employer] BOX TENDER.DIRECTOR OF FIELD COORDINATION Work Phone: [facility] 05-30-2024 07:45-0500 SaO2% (BldA) [Mass fraction] 98 % Gemma Roberts D[employer] BOX TENDER.DIRECTOR OF FIELD COORDINATION Work Phone: [facility] 05-30-2024 07:45-0500 Systolic blood pressure 153 mm[Hg] Gemma Roberts DUST BOX TENDER.DIRECTOR OF FIELD COORDINATION Work Phone: [facility] Comment on above: Provider notified 05-24-2024 08:16-0500 Body mass index (BMI) [Ratio] 29.86 kg/m2 Jacqueline Valadez D[employer] BOX TENDER.DIRECTOR OF FIELD COORDINATION Work Phone: [facility] 05-24-2024 08:16-0500 Body weight 81.4 kg Jacqueline Valadez D[employer] BOX TENDER.DIRECTOR OF FIELD COORDINATION Work Phone: [facility] 05-24-2024 08:16-0500 Diastolic blood pressure 90 mm[Hg] Jacqueline Valadez D[employer] BOX TENDER.DIRECTOR OF FIELD COORDINATION Work Phone: [facility] 05-24-2024 08:16-0500 Heart rate 93 /min Jacqueline Valadez D[employer] BOX TENDER.DIRECTOR OF FIELD COORDINATION Work Phone: [facility] 05-24-2024 08:16-0500 Respiratory rate 16 /min Jacqueline Valadez D[employer] BOX TENDER.DIRECTOR OF FIELD COORDINATION Work Phone: [facility] 05-24-2024 08:16-0500 SaO2% (BldA) [Mass fraction] 100 % Jacqueline Leonsonfamilia D[employer] BOX TENDER.DIRECTOR OF FIELD COORDINATION Work Phone: [facility] 05-24-2024 08:16-0500 Systolic blood pressure 120 mm[Hg] Jacqueline Leonsonfamilia D[employer] BOX TENDER.DIRECTOR OF FIELD COORDINATION Work Phone: [facility] 05-18-2024 11:07-0500 Diastolic blood pressure 98 mm[Hg] Latha Cuevas MD Work Phone: [facility] Comment on above: home BP monitor 05-18-2024 11:07-0500 Systolic blood pressure 146 mm[Hg] Latha Cuevas MD Work Phone: [facility] Comment on above: home BP monitor 05-18-2024 11:02-0500 Body height 165.1 cm Latha Cuevas MD Work Phone: [facility] 05-18-2024 11:02-0500 Body mass index (BMI) [Ratio] 29.85 kg/m2 Latha Cuevas MD Work Phone: [facility] 05-18-2024 11:02-0500 Body weight 81.38 kg Latha Cuevas MD Work Phone: [facility] 05-18-2024 11:02-0500 Heart rate 87 /min Latha Cuevas MD Work Phone: [facility] 05-18-2024 11:02-0500 Respiratory rate 20 /min Latha Cuevas MD Work Phone: [facility] 05-18-2024 11:02-0500 SaO2% (BldA) [Mass fraction] 97 % Latha Cuevas MD Work Phone: [facility] 05-05-2024 08:14-0500 Body height 165.1 cm Latha Cuevas MD Work Phone: [facility] 05-05-2024 08:14-0500 Body mass index (BMI) [Ratio] 29.39 kg/m2 Latha Cuevas MD Work Phone: [facility] 05-05-2024 08:14-0500 Body temperature 98.2 [degF] Latha Cuevas MD Work Phone: [facility] 05-05-2024 08:14-0500 Body weight 80.11 kg Latha Cuevas MD Work Phone: [facility] 05-05-2024 08:14-0500 Diastolic blood pressure 76 mm[Hg] Latha Cuevas MD Work Phone: [facility] 05-05-2024 08:14-0500 Heart rate 91 /min Latha Cuevas MD Work Phone: [facility] 05-05-2024 08:14-0500 SaO2% (BldA) [Mass fraction] 97 % Latha Cuevas MD Work Phone: [facility] 05-05-2024 08:14-0500 Systolic blood pressure 108 mm[Hg] Latha Cuevas MD Work Phone: [facility] 04-17-2024 09:20-0500 Body mass index (BMI) [Ratio] 29.29 kg/m2 Karen Alcantara MD Work Phone: [facility] 04-17-2024 09:20-0500 Body weight 79.83 kg Karen Alcantara MD Work Phone: [facility] 04-10-2024 15:56-0500 Body mass index (BMI) [Ratio] 30.12 kg/m2 Jonathan Monterroso APRN.DIRECTOR OF FIELD COORDINATION Work Phone: [facility] 04-10-2024 15:56-0500 Body weight 82.1 kg Jonathan Monterroso APRN.DIRECTOR OF FIELD COORDINATION Work Phone: [facility] 04-10-2024 15:56-0500 Diastolic blood pressure 79 mm[Hg] Jonathan Monterroso APRN.DIRECTOR OF FIELD COORDINATION Work Phone: [facility] 04-10-2024 15:56-0500 Heart rate 86 /min Jonathan Monterroso D[employer] BOX TENDER.DIRECTOR OF FIELD COORDINATION Work Phone: [facility] 04-10-2024 15:56-0500 Respiratory rate 16 /min Jonathan Monterroso DUST BOX TENDER.DIRECTOR OF FIELD COORDINATION Work Phone: [facility] 04-10-2024 15:56-0500 Systolic blood pressure 119 mm[Hg] Jonathan Monterroso D[employer] BOX TENDER.DIRECTOR OF FIELD COORDINATION Work Phone: [facility] 04-07-2024 09:26-0500 Body height 165.1 cm Phong Blake MD Work Phone: [facility] [employer] 04-07-2024 09:26-0500 Body mass index (BMI) [Ratio] 31.45 kg/m2 Phong Blake MD Work Phone: [facility] [employer] 04-07-2024 09:26-0500 Body weight 85.73 kg Phong Blake MD Work Phone: [facility] [employer] 04-07-2024 09:26-0500 Diastolic blood pressure 68 mm[Hg] Phong Blake MD Work Phone: [facility] [employer] 04-07-2024 09:26-0500 Heart rate 84 /min Phong Blake MD Work Phone: [facility] [employer] 04-07-2024 09:26-0500 Systolic blood pressure 104 mm[Hg] Phong Blake MD Work Phone: [facility] [employer] 03-23-2024 17:10-0500 Body temperature 97.2 [degF] Katherine Bowen MD Work Phone: [facility] [employer] 03-23-2024 17:10-0500 Diastolic blood pressure 87 mm[Hg] Katherine Bowen MD Work Phone: [facility] [employer] 03-23-2024 17:10-0500 Heart rate 92 /min Katherine Bowen MD Work Phone: [facility] [employer] 03-23-2024 17:10-0500 Respiratory rate 16 /min Katherine Bowen MD Work Phone: [facility] [employer] 03-23-2024 17:10-0500 SaO2% (BldA) [Mass fraction] 100 % Katherine Bowen MD Work Phone: [facility] 03-23-2024 17:10-0500 Systolic blood pressure 119 mm[Hg] Katherine Bowen MD Work Phone: [facility] 03-16-2024 14:13-0400 Body mass index (BMI) [Ratio] 30.82 kg/m2 Priyanka Smith MD Work Phone: [facility] 03-16-2024 14:13-0400 Body weight 84 kg Priyanka Smith MD Work Phone: [facility] 03-16-2024 14:13-0400 Diastolic blood pressure 68 mm[Hg] Priyanka Smith MD Work Phone: [facility] 03-16-2024 14:13-0400 Heart rate 74 /min Priyanka Smith MD Work Phone: [facility] 03-16-2024 14:13-0400 Respiratory rate 16 /min Priyanka Smith MD Work Phone: [facility] 03-16-2024 14:13-0400 Systolic blood pressure 100 mm[Hg] Priyanka Smith MD Work Phone: [facility] 03-16-2024 08:57-0400 Body height 165.1 cm Gemma Roberts APRN.DIRECTOR OF FIELD COORDINATION Work Phone: [facility] 03-16-2024 08:57-0400 Body mass index (BMI) [Ratio] 30.78 kg/m2 Gemma Roberts APRN.DIRECTOR OF FIELD COORDINATION Work Phone: [facility] 03-16-2024 08:57-0400 Body weight 83.9 kg Gemma Roberts APRN.DIRECTOR OF FIELD COORDINATION Work Phone: [facility] 03-16-2024 08:57-0400 Diastolic blood pressure 74 mm[Hg] Gemma Roberts APRN.DIRECTOR OF FIELD COORDINATION Work Phone: [facility] 03-16-2024 08:57-0400 Heart rate 78 /min Gemma Roberts APRN.DIRECTOR OF FIELD COORDINATION Work Phone: [facility] 03-16-2024 08:57-0400 SaO2% (BldA) [Mass fraction] 98 % Gemma Roberts APRN.DIRECTOR OF FIELD COORDINATION Work Phone: [facility] 03-16-2024 08:57-0400 Systolic blood pressure 110 mm[Hg] Gemma Roberts APRN.DIRECTOR OF FIELD COORDINATION Work Phone: [facility] 03-09-2024 12:38-0400 Body temperature 97.59 [degF] Noel Contreras MD Work Phone: [facility] 03-09-2024 12:38-0400 Diastolic blood pressure 66 mm[Hg] Noel Contreras MD Work Phone: [facility] 03-09-2024 12:38-0400 Heart rate 87 /min Noel Contreras MD Work Phone: [facility] 03-09-2024 12:38-0400 Respiratory rate 12 /min Noel Contreras MD Work Phone: [facility] 03-09-2024 12:38-0400 SaO2% (BldA) [Mass fraction] 99 % Noel Contreras MD Work Phone: [facility] 03-09-2024 12:38-0400 Systolic blood pressure 99 mm[Hg] Noel Contreras MD Work Phone: [facility] 03-07-2024 09:08-0400 Body height 165.1 cm Noel Contreras MD Work Phone: [facility] 03-07-2024 09:08-0400 Body mass index (BMI) [Ratio] 29.62 kg/m2 Noel Contreras MD Work Phone: [facility] 03-07-2024 09:08-0400 Body weight 80.74 kg Noel Contreras MD Work Phone: [facility] 03-03-2024 10:24-0400 Diastolic blood pressure 60 mm[Hg] Wiley Benitez MD Work Phone: [facility] 03-03-2024 10:24-0400 Heart rate 99 /min Wiley Benitez MD Work Phone: [facility] 03-03-2024 10:24-0400 Systolic blood pressure 99 mm[Hg] Wiley Benitez MD Work Phone: [facility] 03-01-2024 08:38-0400 Body mass index (BMI) [Ratio] 30.32 kg/m2 Jacqueline Tannhof DUST BOX TENDER.DIRECTOR OF FIELD COORDINATION Work Phone: [facility] 03-01-2024 08:38-0400 Body weight 82.64 kg Jacqueline Tannhof DUST BOX TENDER.DIRECTOR OF FIELD COORDINATION Work Phone: [facility] 03-01-2024 08:38-0400 Diastolic blood pressure 58 mm[Hg] Jacqueline Tannhof DUST BOX TENDER.DIRECTOR OF FIELD COORDINATION Work Phone: [facility] 03-01-2024 08:38-0400 Heart rate 72 /min Jacqueline Tannhof DUST BOX TENDER.DIRECTOR OF FIELD COORDINATION Work Phone: [facility] 03-01-2024 08:38-0400 Respiratory rate 16 /min Jacqueline Tannhof DUST BOX TENDER.DIRECTOR OF FIELD COORDINATION Work Phone: [facility] 03-01-2024 08:38-0400 Systolic blood pressure 82 mm[Hg] Jacqueline Tannhof DUST BOX TENDER.DIRECTOR OF FIELD COORDINATION Work Phone: [facility] 01-13-2024 14:01-0400 Body height 165.1 cm Bogdan Roberts MD Work Phone: [facility] 01-13-2024 14:01-0400 Body mass index (BMI) [Ratio] 32.14 kg/m2 Bogdan Roberts MD Work Phone: [facility] 01-13-2024 14:01-0400 Body weight 87.6 kg Bogdan Roberts MD Work Phone: [facility] 01-13-2024 14:01-0400 Diastolic blood pressure 66 mm[Hg] Bogdan Roberts MD Work Phone: [facility] 01-13-2024 14:01-0400 Heart rate 62 /min Bogdan Roberts MD Work Phone: [facility] 01-13-2024 14:01-0400 SaO2% (BldA) [Mass fraction] 98 % Bogdan Roberts MD Work Phone: [facility] 01-13-2024 14:01-0400 Systolic blood pressure 101 mm[Hg] Bogdan Roberts MD Work Phone: [facility] 01-11-2024 11:18-0400 Body height 162.6 cm Wiley Benitez MD Work Phone: [facility] 01-11-2024 11:18-0400 Body mass index (BMI) [Ratio] 32.96 kg/m2 Wiley Benitez MD Work Phone: [facility] 01-11-2024 11:18-0400 Body weight 87.09 kg Wiley Benitez MD Work Phone: [facility] 01-11-2024 11:18-0400 Diastolic blood pressure 80 mm[Hg] Wiley Benitez MD Work Phone: [facility] 01-11-2024 11:18-0400 Systolic blood pressure 118 mm[Hg] Wiley Benitez MD Work Phone: [facility] 12-28-2023 07:05-0400 Body mass index (BMI) [Ratio] 32.54 kg/m2 Jacqueline Valadez APRN.DIRECTOR OF FIELD COORDINATION Work Phone: [facility] 12-28-2023 07:05-0400 Body weight 86 kg Jacqueline Valadez APRN.DIRECTOR OF FIELD COORDINATION Work Phone: [facility] 12-28-2023 07:05-0400 Diastolic blood pressure 70 mm[Hg] Jacqueline Valadez APRN.DIRECTOR OF FIELD COORDINATION Work Phone: [facility] 12-28-2023 07:05-0400 Heart rate 70 /min Jacqueline Valadez APRN.DIRECTOR OF FIELD COORDINATION Work Phone: [facility] 12-28-2023 07:05-0400 Respiratory rate 16 /min Jacqueline Metcalffamilia DUST BOX TENDER.DIRECTOR OF FIELD COORDINATION Work Phone: [facility] 12-28-2023 07:05-0400 SaO2% (BldA) [Mass fraction] 97 % Jacqueline Pauline DUST BOX TENDER.DIRECTOR OF FIELD COORDINATION Work Phone: [facility] 12-28-2023 07:05-0400 Systolic blood pressure 110 mm[Hg] Jacqueline Pauline D[employer] BOX TENDER.DIRECTOR OF FIELD COORDINATION Work Phone: [facility] 12-21-2023 13:53-0400 Body height 162.6 cm Mathew Yang Jr., MD Work Phone: [facility] 12-21-2023 13:53-0400 Body mass index (BMI) [Ratio] 32.44 kg/m2 Mathew Yang Jr., MD Work Phone: [facility] 12-21-2023 13:53-0400 Body weight 85.73 kg Mathew Yang Jr., MD Work Phone: [facility] 12-01-2023 13:46-0400 Diastolic blood pressure 67 mm[Hg] Wiley Benitez MD Work Phone: [facility] 12-01-2023 13:46-0400 Systolic blood pressure 100 mm[Hg] Wiley Benitez MD Work Phone: [facility] 11-29-2023 08:14-0400 Body height 162.6 cm Charis Lopez DUST BOX TENDER.CNM Work Phone: [facility] 11-29-2023 08:14-0400 Body mass index (BMI) [Ratio] 32.61 kg/m2 Charis Lopez DUST BOX TENDER.CNM Work Phone: [facility] 11-29-2023 08:14-0400 Body weight 86.18 kg Charis Lopez DUST BOX TENDER.CNM Work Phone: [facility] 11-29-2023 08:14-0400 Diastolic blood pressure 76 mm[Hg] Charis Lpoez DUST BOX TENDER.CNM Work Phone: [facility] 11-29-2023 08:14-0400 Systolic blood pressure 114 mm[Hg] Charis Lopez DUST BOX TENDER.CNM Work Phone: [facility] 11-09-2023 08:49-0400 Body mass index (BMI) [Ratio] 32.28 kg/m2 Mathew Yang Jr., MD Work Phone: [facility] 11-09-2023 08:49-0400 Body weight 88 kg Mathew Yang Jr., MD Work Phone: [facility] 10-14-2023 06:53-0400 Body mass index (BMI) [Ratio] 32.62 kg/m2 Jacqueline Valadez D[employer] BOX TENDER.DIRECTOR OF FIELD COORDINATION Work Phone: [facility] 10-14-2023 06:53-0400 Body weight 88.91 kg Jacqueline Valadez DUST BOX TENDER.DIRECTOR OF FIELD COORDINATION Work Phone: [facility] 10-14-2023 06:53-0400 Diastolic blood pressure 66 mm[Hg] Jacqueline Valadez DUST BOX TENDER.DIRECTOR OF FIELD COORDINATION Work Phone: [facility] 10-14-2023 06:53-0400 Heart rate 98 /min Jacqueline Valadez D[employer] BOX TENDER.DIRECTOR OF FIELD COORDINATION Work Phone: [facility] 10-14-2023 06:53-0400 Respiratory rate 16 /min Jacqueline Valadez DUST BOX TENDER.DIRECTOR OF FIELD COORDINATION Work Phone: [facility] 10-14-2023 06:53-0400 SaO2% (BldA) [Mass fraction] 77 % Jacqueline Valadez DUST BOX TENDER.DIRECTOR OF FIELD COORDINATION Work Phone: [facility] 10-14-2023 06:53-0400 Systolic blood pressure 98 mm[Hg] Jacqueline Valadez DUST BOX TENDER.DIRECTOR OF FIELD COORDINATION Work Phone: [facility] 10-07-2023 08:23-0400 Diastolic blood pressure 82 mm[Hg] Tariq Brooks D[employer] BOX TENDER.DIRECTOR OF FIELD COORDINATION Work Phone (unformatted): [phone] [facility] 10-07-2023 08:23-0400 Systolic blood pressure 121 mm[Hg] Tariq Barley DUST BOX TENDER.DIRECTOR OF FIELD COORDINATION Work Phone (unformatted): [phone] [facility] 09-16-2023 13:06-0400 Body mass index (BMI) [Ratio] 32.95 kg/m2 Karen Alcantara MD Work Phone: [facility] 09-16-2023 13:06-0400 Body weight 89.81 kg Karen Alcantara MD Work Phone: [facility] 09-16-2023 13:06-0400 Diastolic blood pressure 74 mm[Hg] Karen Alcantara MD Work Phone: [facility] 09-16-2023 13:06-0400 Heart rate 91 /min Karen Alcantara MD Work Phone: [facility] 09-16-2023 13:06-0400 Respiratory rate 16 /min Karen Alcantara MD Work Phone: [facility] 09-16-2023 13:06-0400 SaO2% (BldA) [Mass fraction] 97 % Karen Alcantara MD Work Phone: [facility] 09-16-2023 13:06-0400 Systolic blood pressure 118 mm[Hg] Karen Alcantara MD Work Phone: [facility] 09-02-2023 08:21-0400 Diastolic blood pressure 72 mm[Hg] Tariq Barley D[employer] BOX TENDER.DIRECTOR OF FIELD COORDINATION Work Phone (unformatted): [phone] [facility] 09-02-2023 08:21-0400 Systolic blood pressure 102 mm[Hg] Tariq Barley D[employer] BOX TENDER.DIRECTOR OF FIELD COORDINATION Work Phone (unformatted): [phone] [facility] 06-22-2023 09:11-0500 Body height 165.1 cm Priyanka Smith MD Work Phone: [facility] 06-22-2023 09:11-0500 Body weight 93.62 kg Priyanka Smith MD Work Phone: [facility] 06-22-2023 09:11-0500 Diastolic blood pressure 78 mm[Hg] Priyanka Smith MD Work Phone: [facility] 06-22-2023 09:11-0500 Heart rate 72 /min Priyanka Smith MD Work Phone: [facility] 06-22-2023 09:11-0500 Respiratory rate 18 /min Priyanka Smith MD Work Phone: [facility] 06-22-2023 09:11-0500 Systolic blood pressure 118 mm[Hg] Priyanka Smith MD Work Phone: [facility] 01-15-2023 08:01-0400 Diastolic blood pressure 82 mm[Hg] John Mg MD Work Phone: [facility] 01-15-2023 08:01-0400 Heart rate 73 /min John Mg MD Work Phone: [facility] 01-15-2023 08:01-0400 Systolic blood pressure 119 mm[Hg] John Mg MD Work Phone: [facility] 01-12-2023 10:24-0400 Body height 161.3 cm Pacc 1 Work Phone: [facility] 01-12-2023 10:24-0400 Body temperature 98.4 [degF] Pacc 1 Work Phone: [facility] 01-12-2023 10:24-0400 Body weight 90.72 kg Pacc 1 Work Phone: [facility] 01-12-2023 10:24-0400 Diastolic blood pressure 77 mm[Hg] Pacc 1 Work Phone: [facility] 01-12-2023 10:24-0400 Heart rate 79 /min Pacc 1 Work Phone: [facility] 01-12-2023 10:24-0400 Respiratory rate 18 /min Pacc 1 Work Phone: [facility] 01-12-2023 10:24-0400 SaO2% (BldA) [Mass fraction] 97 % Pacc 1 Work Phone: [facility] 01-12-2023 10:24-0400 Systolic blood pressure 129 mm[Hg] Pac 1 Work Phone: [facility] 12-22-2022 09:03-0400 Body weight 91.63 kg Priyanka Smith MD Work Phone: [facility] 12-22-2022 09:03-0400 Diastolic blood pressure 80 mm[Hg] Priyanka Smith MD Work Phone: [facility] 12-22-2022 09:03-0400 Heart rate 80 /min Priyanka Smith MD Work Phone: [facility] 12-22-2022 09:03-0400 Respiratory rate 16 /min Priyanka Smith MD Work Phone: [facility] 12-22-2022 09:03-0400 Systolic blood pressure 118 mm[Hg] Priyanka Smith MD Work Phone: [facility] 11-16-2022 09:40-0400 Body weight 92.53 kg Pulm Wstr Work Phone: [facility] 11-03-2022 10:56-0400 Body height 165.1 cm Mathew Yang Jr., MD Work Phone: [facility] 11-03-2022 10:56-0400 Body weight 92.53 kg Mathew Yang Jr., MD Work Phone: [facility] 08-20-2022 14:10-0400 Body weight 90.36 kg Priyanka Smith MD Work Phone: [facility] 08-20-2022 14:10-0400 Diastolic blood pressure 80 mm[Hg] Priyanka Smith MD Work Phone: [facility] 08-20-2022 14:10-0400 Heart rate 78 /min Priyanka Smith MD Work Phone: [facility] 08-20-2022 14:10-0400 Respiratory rate 16 /min Priyanka Smith MD Work Phone: [facility] 08-20-2022 14:10-0400 Systolic blood pressure 130 mm[Hg] Priyanka Smith MD Work Phone: [facility] 08-12-2022 18:29-0400 Body temperature 99.3 [degF] [facility] D[employer] BOX TENDER.DIRECTOR OF FIELD COORDINATION Work Phone: [facility] 08-12-2022 18:29-0400 Body weight 89.63 kg [facility] D[employer] BOX TENDER.DIRECTOR OF FIELD COORDINATION Work Phone: [facility] 08-12-2022 18:29-0400 Diastolic blood pressure 78 mm[Hg] [facility] DUST BOX TENDER.DIRECTOR OF FIELD COORDINATION Work Phone: [facility] 08-12-2022 18:29-0400 Heart rate 101 /min [facility] D[employer] BOX TENDER.DIRECTOR OF FIELD COORDINATION Work Phone: [facility] 08-12-2022 18:29-0400 Respiratory rate 20 /min [facility] D[employer] BOX TENDER.DIRECTOR OF FIELD COORDINATION Work Phone: [facility] 08-12-2022 18:29-0400 SaO2% (BldA) [Mass fraction] 99 % [facility] D[employer] BOX TENDER.DIRECTOR OF FIELD COORDINATION Work Phone: [facility] 08-12-2022 18:29-0400 Systolic blood pressure 120 mm[Hg] [facility] DUST BOX TENDER.DIRECTOR OF FIELD COORDINATION Work Phone: [facility] 08-11-2022 14:50-0400 Body height 165.1 cm Mathew Yang Jr., MD Work Phone: [facility] 08-11-2022 14:50-0400 Body weight 87.54 kg Mathew Yang Jr., MD Work Phone: [facility] 07-01-2022 18:02-0500 Body temperature 99.3 [degF] Brandi EASLEY Work Phone: [facility] 07-01-2022 18:02-0500 Body weight 91.54 kg Brandi EASLEY Work Phone: [facility] 07-01-2022 18:02-0500 Diastolic blood pressure 72 mm[Hg] Krislyn Aberegg PA Work Phone: [facility] 07-01-2022 18:02-0500 Heart rate 98 /min Krislyn Aberegg PA Work Phone: [facility] 07-01-2022 18:02-0500 Respiratory rate 18 /min Krislyn Aberegg PA Work Phone: [facility] 07-01-2022 18:02-0500 SaO2% (BldA) [Mass fraction] 98 % Krislyn Aberegg PA Work Phone: [facility] 07-01-2022 18:02-0500 Systolic blood pressure 114 mm[Hg] Krislyn Aberegg PA Work Phone: [facility] 06-22-2022 14:40-0500 Body weight 93.08 kg Priyanka Smith MD Work Phone: [facility] 06-22-2022 14:40-0500 Diastolic blood pressure 70 mm[Hg] Priyanka Smith MD Work Phone: [facility] 06-22-2022 14:40-0500 Heart rate 74 /min Priyanka Smith MD Work Phone: [facility] 06-22-2022 14:40-0500 Respiratory rate 16 /min Priyanka Smith MD Work Phone: [facility] 06-22-2022 14:40-0500 Systolic blood pressure 118 mm[Hg] Priyanka Smith MD Work Phone: [facility] 05-22-2022 14:59-0500 Diastolic blood pressure 85 mm[Hg] Proc Shared Work Phone: [facility] 05-22-2022 14:59-0500 Systolic blood pressure 127 mm[Hg] Proc Shared Work Phone: [facility] 04-17-2022 14:33-0500 Body weight 92.53 kg Karen Alcantara MD Work Phone: [facility] 04-17-2022 14:33-0500 Diastolic blood pressure 72 mm[Hg] Karen Alcantara MD Work Phone: [facility] 04-17-2022 14:33-0500 Heart rate 86 /min Karen Alcantara MD Work Phone: [facility] 04-17-2022 14:33-0500 SaO2% (BldA) [Mass fraction] 99 % Karen Alcantara MD Work Phone: [facility] 04-17-2022 14:33-0500 Systolic blood pressure 133 mm[Hg] Karen Alcantara MD Work Phone: [facility] 04-02-2022 08:22-0500 Body temperature 97.59 [degF] Genie Olson APRN.DIRECTOR OF FIELD COORDINATION Work Phone: [facility] 04-02-2022 08:22-0500 Body weight 92.99 kg Genie Olson APRN.DIRECTOR OF FIELD COORDINATION Work Phone: [facility] 04-02-2022 08:22-0500 Diastolic blood pressure 72 mm[Hg] Genie Olson APRN.DIRECTOR OF FIELD COORDINATION Work Phone: [facility] 04-02-2022 08:22-0500 Heart rate 79 /min Genie Olson APRN.DIRECTOR OF FIELD COORDINATION Work Phone: [facility] 04-02-2022 08:22-0500 Respiratory rate 18 /min Genie Olson APRN.DIRECTOR OF FIELD COORDINATION Work Phone: [facility] 04-02-2022 08:22-0500 SaO2% (BldA) [Mass fraction] 99 % Genie Olson APRN.DIRECTOR OF FIELD COORDINATION Work Phone: [facility] 04-02-2022 08:22-0500 Systolic blood pressure 110 mm[Hg] Genie Olson APRN.DIRECTOR OF FIELD COORDINATION Work Phone: [facility] 03-16-2022 09:23-0400 Body weight 91.63 kg John Mg MD Work Phone: [facility] 03-16-2022 09:23-0400 Diastolic blood pressure 74 mm[Hg] John Mg MD Work Phone: [facility] 03-16-2022 09:23-0400 Systolic blood pressure 108 mm[Hg] John Mg MD Work Phone: [facility] 02-16-2022 09:36-0400 Body weight 89.36 kg Karen Alcantara MD Work Phone: [facility] 02-16-2022 09:36-0400 Diastolic blood pressure 62 mm[Hg] Karen Alcantara MD Work Phone: [facility] 02-16-2022 09:36-0400 Heart rate 78 /min Karen Alcantara MD Work Phone: [facility] 02-16-2022 09:36-0400 Respiratory rate 17 /min Karen Alcantara MD Work Phone: [facility] 02-16-2022 09:36-0400 SaO2% (BldA) [Mass fraction] 97 % Karen Alcantara MD Work Phone: [facility] 02-16-2022 09:36-0400 Systolic blood pressure 118 mm[Hg] Karen Alcantara MD Work Phone: [facility] 12-19-2021 09:18-0400 Body weight 85 kg Priyanka Smith MD Work Phone: [facility] 12-19-2021 09:18-0400 Diastolic blood pressure 68 mm[Hg] Priyanka Smith MD Work Phone: [facility] 12-19-2021 09:18-0400 Heart rate 78 /min Priyanka Smith MD Work Phone: [facility] 12-19-2021 09:18-0400 Respiratory rate 16 /min Priyanka Smith MD Work Phone: [facility] 12-19-2021 09:18-0400 Systolic blood pressure 110 mm[Hg] Priyanka Smith MD Work Phone: [facility] 11-26-2021 09:40-0400 Body height 166.4 cm Charis Lopez DUST BOX TENDER.CNM Work Phone: [facility] 11-26-2021 09:40-0400 Body weight 83.92 kg Charis Lopez [employer] BOX TENDER.CNM Work Phone: [facility] 11-26-2021 09:40-0400 Diastolic blood pressure 64 mm[Hg] Charis Greents DUST BOX TENDER.CNM Work Phone: [facility] 11-26-2021 09:40-0400 Systolic blood pressure 108 mm[Hg] Charis Greents DUST BOX TENDER.CNM Work Phone: [facility] 11-05-2021 09:30-0400 Body weight 82.1 kg Cleo Maynard DUST BOX TENDER.CNM Work Phone: [facility] 11-05-2021 09:30-0400 Diastolic blood pressure 70 mm[Hg] Cleo Maynard D[employer] BOX TENDER.CNM Work Phone: [facility] 11-05-2021 09:30-0400 Systolic blood pressure 112 mm[Hg] Cleo Maynard D[employer] BOX TENDER.CNM Work Phone: [facility] 08-12-2021 13:46-0400 Body height 161.3 cm Sam Cuenca MD Work Phone: [facility] 08-12-2021 13:46-0400 Body weight 77.11 kg Sam Cuenca MD Work Phone: [facility] 08-12-2021 13:46-0400 Diastolic blood pressure 62 mm[Hg] Sam Cuenca MD Work Phone: [facility] 08-12-2021 13:46-0400 Heart rate 94 /min Sam Cuenca MD Work Phone: [facility] 08-12-2021 13:46-0400 SaO2% (BldA) [Mass fraction] 99 % Sam Cuenca MD Work Phone: [facility] 08-12-2021 13:46-0400 Systolic blood pressure 108 mm[Hg] Sam Cuenca MD Work Phone: [facility] 08-12-2021 13:41-0400 Body height 161.3 cm Respiratory Wstr Work Phone: [facility] 08-12-2021 13:41-0400 Body weight 77.11 kg Respiratory Wstr Work Phone: [facility] 08-12-2021 13:41-0400 Heart rate 94 /min Respiratory Wstr Work Phone: [facility] 08-12-2021 13:41-0400 Respiratory rate 14 /min Respiratory Wstr Work Phone: [facility] 08-12-2021 13:41-0400 SaO2% (BldA) [Mass fraction] 99 % Respiratory Wstr Work Phone: [facility] Encounters Encounter Date Encounter Type Care Provider Facility Start: 02-08-2025 End: 02-08-2025 ambulatory JASMYNE DAY Facility:[facility] Start: 02-06-2025 End: 02-06-2025 ambulatory JASMYNE DAY Facility:[facility] Start: 01-30-2025 End: 01-30-2025 Patient encounter procedure Jasmyne Day MD Work Phone: [facility] [place] Comment on above: Vaginal bleeding (Pr imary Dx); Acute cystitis with hematuria; Iron deficiency anemia, unspecified iron deficiency anemia type; Encounter for follow-up examination after completed treatment for conditions other than malignant neoplasm Start: 01-30-2025 End: 01-30-2025 ambulatory JASMYNE DAY Facility:[facility] Start: 01-29-2025 End: 01-29-2025 ambulatory JASMYNE DAY Facility:[facility] Start: 01-29-2025 End: 01-29-2025 Subsequent hospital visit by physician Judit [facility] (I-Stat) Work Phone: Cat Scan Comment on above: Interstitial pulmona ry disease (HCC) [J84.9] Start: 01-22-2025 End: 01-26-2025 Evaluation and management of inpatient Ina Del Toro DO Work Phone: [facility] Medical Surgical Unit [facility] H[facility] Comment on above: Vaginal bleeding (Pr imary Dx); Post-menopausal bleeding; Stage 3a chronic kidney disease (HCC) Start: 01-21-2025 End: 01-22-2025 Emergency department patient visit Dr. Priyanka Smith MD Work Phone: -Emergency Department Work Phone: Start: 01-10-2025 End: 01-10-2025 Patient encounter procedure Jasmyne Day MD Work Phone: [facility] [place] Comment on above: Orthostatic hypotens ion (Primary Dx); Dizziness; Parkinson's disease, unspecified whether dyskinesia present, unspecified whether manifestations fluctuate (HCC) Start: 01-10-2025 End: 01-10-2025 ambulatory JASMYNE DAY Facility:[facility] Start: 01-09-2025 End: 01-09-2025 Patient encounter procedure Mathew Yang MD Work Phone: Urology Comment on above: Kidney stone (Primar y Dx) Start: 01-09-2025 End: 01-09-2025 ambulatory MATHEW YANG JR Facility:[facility] Start: 12-29-2024 End: 12-29-2024 Patient encounter procedure Hilary EASLEY -[facility] Work Phone: Start: 12-29-2024 End: 12-29-[address] Priyanka Smith MD Work Phone: -[facility] Start: 12-29-2024 End: 12-29-2024 ambulatory Gonzalo Day Facility:[facility] Start: 12-27-2024 End: 12-27-2024 Office outpatient visit 25 minutes Peyton Diaz APRN.CNP Work Phone: [facility] [place] Comment on above: Orthostatic hypotens ion (Primary Dx); Parkinson's disease, unspecified whether dyskinesia present, unspecified whether manifestations fluctuate (HCC) Start: 12-27-2024 End: 12-27-2024 ambulatory PEYTON DIAZ Facility:[facility] Start: 12-22-2024 Non-patient / Non-visit Aditya Monet nd DO -[facility] Start: 12-22-2024 End: 12-22-2024 Admission to same day surgery center Aditya Cota DO -Endoscopy Work Phone: Start: 12-22-2024 End: 12-22-[address] Priyanka Smith MD Work Phone: -Endoscopy Start: 12-20-2024 End: 12-20-2024 ambulatory MATHEW YANG Facility:[facility] Start: 12-13-2024 End: 12-13-2024 Patient encounter procedure Cyndi Naik D[employer] BOX TENDER.DIRECTOR OF FIELD COORDINATION Work Phone: [facility] [place] Comment on above: Orthostatic hypotens ion (Primary Dx); Parkinson's disease, unspecified whether dyskinesia present, unspecified whether manifestations fluctuate (HCC) Start: 12-13-2024 End: 12-13-2024 ambulatory CYNDI NAIK Facility:[facility] Start: 12-06-2024 End: 12-06-2024 Patient encounter procedure Charis Lopez APRN.CNM Work Phone: OB/Gynecology Comment on above: Encounter for gyneco logical examination (general) (routine) without abnormal findings (Primary Dx); Encounter for screening for human papillomavirus (HPV); Pap smear for cervical cancer screening; Encounter for screening mammogram for breast cancer; Genital warts Start: 12-06-2024 End: 12-06-2024 Patient encounter status Charis Lopez D[employer] BOX TENDER.CNM Work Phone: [facility] Start: 12-06-2024 End: 12-06-2024 ambulatory CHARIS LOPEZ Facility:[facility] Start: 12-06-2024 Encounter for gynecological examination (general) (routine) without abnormal findings CHARIS LOPEZ [facility] Start: 11-29-2024 End: 11-29-2024 Patient encounter procedure Jasmyne Day MD Work Phone: [facility] [place] Comment on above: Parkinson's disease, unspecified whether dyskinesia present, unspecified whether manifestations fluctuate (HCC) (Primary Dx); Orthostatic hypotension; Stage 3 chronic kidney disease, unspecified whether stage 3a or 3b CKD (HCC) Start: 11-29-2024 End: 11-29-2024 ambulatory [facility] Facility:[facility] Start: 11-16-2024 End: 11-16-2024 Patient encounter procedure Gemma Roberts APRN.DIRECTOR OF FIELD COORDINATION Work Phone: Neurology Comment on above: Constipation, unspec ified constipation type (Primary Dx); Parkinsonism, unspecified Parkinsonism type (HCC); REM sleep behavior disorder; Restless legs syndrome; Orthostatic hypotension Start: 11-16-2024 End: 11-16-2024 ambulatory [facility] Facility:[facility] Start: 11-14-2024 End: 11-14-2024 Telephone encounter German Grubbs APRN.DIRECTOR OF FIELD COORDINATION Work Phone: URO/Gynecology Comment on above: Patient Question; Re fill Request Start: 11-09-2024 End: 11-14-2024 ambulatory German Grubbs APRN.DIRECTOR OF FIELD COORDINATION Work Phone: URO/Gynecology Comment on above: Atarax Start: 11-08-2024 End: 11-08-2024 Patient encounter procedure Hilary EASLEY -[facility] Work Phone: Start: 11-08-2024 End: 11-08-[address] Priyanka Smith MD Work Phone: [facility] Work Phone: Start: 10-31-2024 End: 10-31-2024 Patient encounter procedure German Grubbs APRN.DIRECTOR OF FIELD COORDINATION Work Phone: URO/Gynecology Comment on above: Chronic interstitial cystitis (Primary Dx); Genitourinary syndrome of menopause Start: 10-31-2024 End: 10-31-2024 ambulatory Leandro Vargas PT Work Phone: [facility] Physical Therapy Comment on above: Fall in home, initia l encounter (Primary Dx); At high risk for falls Start: 10-26-2024 End: 10-26-2024 Patient encounter procedure [facility] Work Phone[facility] Comment on above: Interstitial pulmona ry disease (HCC) (Primary Dx); NSIP (nonspecific interstitial pneumonia) (HCC); Bronchiectasis without complication (HCC); Stage 3b chronic kidney disease (HCC); On Cellcept therapy Start: 10-26-2024 End: 10-26-2024 ambulatory [facility] Work Phone: PULM LAB [facility] Comment on above: Spirometry Start: 10-17-2024 End: 10-17-2024 ambulatory Eufemia Anglin PT, DPT [facility] Physical Therapy Comment on above: Fall in home, initia l encounter (Primary Dx); At high risk for falls Refill Request Start: 10-16-2024 End: 10-17-2024 ambulatory Bogdan Roberts MD Work Phone: Neurology Comment on above: Sinemet & Carbidopa Start: 10-11-2024 End: 10-11-2024 Patient encounter procedure Hilary EASLEY -[facility] Work Phone: Start: 10-11-2024 End: 10-11-[address] Priyanka Smith MD Work Phone: [facility] Work Phone: Start: 10-10-2024 End: 10-10-2024 ambulatory Leandro Vargas PT Work Phone: [facility] Physical Therapy Comment on above: At high risk for fal ls (Primary Dx) Start: 10-02-2024 End: 10-02-2024 ambulatory Leandro Vargas PT Work Phone: [facility] Physical Therapy Comment on above: At high risk for fal ls (Primary Dx) Start: 09-28-2024 End: 09-28-2024 ambulatory PRIYANKA SMITH Facility:[facility] Start: 09-28-2024 End: 09-28-2024 ambulatory Leandro Vargas PT Work Phone: [facility] Physical Therapy Comment on above: Fall in home, initia l encounter (Primary Dx); At high risk for falls; Overactive bladder Start: 09-26-2024 End: 11-26-2024 Follow-up encounter Becca Mir APRN.DIRECTOR OF FIELD COORDINATION Work Phone: Pulmonary Medicine Start: 09-23-2024 End: 09-23-2024 [facility] Facility:[facility] Start: 09-22-2024 End: 09-22-2024 Office outpatient visit 40 minutes Rika Adam APRN.DIRECTOR OF FIELD COORDINATION Work Phone: Neurology Comment on above: Parkinsonism, unspec ified Parkinsonism type (HCC) (Primary Dx); Nausea Start: 09-22-2024 End: 09-22-2024 ambulatory [facility] Facility:[facility] Start: 09-20-2024 End: 09-22-2024 Refill Becca Mir APRN.DIRECTOR OF FIELD COORDINATION Work Phone: Pulmonary Medicine Comment on above: Refill Request Start: 09-11-2024 End: 09-11-2024 Follow-up encounter Jasmyne Day MD Work Phone: [facility] [place] Comment on above: Results Start: 09-11-2024 ambulatory [facility] Facil ity:[facility] Start: 09-11-2024 End: 09-11-2024 Subsequent hospital visit by physician Griselda [facility] [place] Work Phone: Radiology Comment on above: Fall in home, initia l encounter [W19.XXXA, Y92.009] Start: 09-11-2024 End: 09-11-2024 Patient encounter procedure Jasmyne Day MD Work Phone: [facility] [place] Comment on above: Fall in home, initia l encounter (Primary Dx); Acute right-sided low back pain without sciatica; Acute hip pain, right; Injury of head, initial encounter; Orbital pain, left; At high risk for falls Start: 09-11-2024 End: 09-11-2024 [facility] Facility:[facility] Start: 09-01-2024 End: 09-01-2024 Follow-up encounter Juwan Land APRN.DIRECTOR OF FIELD COORDINATION Work Phone: Family Medicine [place] Comment on above: Results Start: 08-31-2024 End: 08-31-2024 Office outpatient visit 25 minutes Priyanka Smith MD Work Phone: Family Medicine [place] Comment on above: Syncope, unspecified syncope type (Primary Dx); Hypothyroidism, unspecified type Start: 08-31-2024 End: 08-31-2024 ambulatory [facility] Facility:[facility] Start: 08-31-2024 End: 08-31-2024 Patient encounter procedure Latha Cuevas MD Work Phone: Endocrinology Comment on above: Lightheadedness (Karyn mcihele Dx) Start: 08-31-2024 End: 08-31-2024 ambulatory [facility] Facility:[facility] Start: 08-22-2024 End: 10-22-2024 Follow-up encounter Candy Santana APRN.DIRECTOR OF FIELD COORDINATION Work Phone: OB/Gynecology Start: 08-21-2024 End: 08-21-2024 ambulatory [facility] Facility:[facility] Start: 08-21-2024 End: 08-21-2024 Subsequent hospital visit by physician [facility] Mammo [facility] Mammogram Comment on above: Encounter for screen ing mammogram for breast cancer [Z12.31] Start: 08-18-2024 End: 10-18-2024 Follow-up encounter Maira Chen APRN.DIRECTOR OF FIELD COORDINATION Work Phone: Urology Start: 08-18-2024 End: 08-18-2024 Telephone encounter Maira Chen APRN.DIRECTOR OF FIELD COORDINATION Work Phone: Urology Comment on above: Results Start: 08-17-2024 End: 08-17-2024 ambulatory [facility] Facility:[facility] Start: 08-17-2024 End: 10-17-2024 Follow-up encounter Maira Chen APRN.DIRECTOR OF FIELD COORDINATION Work Phone: Urology [facility] Start: 08-15-2024 End: 08-16-2024 ambulatory Bogdan Roberts MD Work Phone: Neurology Comment on above: Sinemet Start: 08-14-2024 End: 08-14-2024 ambulatory PRIYANKA SMITH Facility:[facility] Start: 08-14-2024 End: 08-14-2024 Subsequent hospital visit by physician [facility] Work Phone: Radiology Comment on above: Gross hematuria [R31 .0] Start: 08-11-2024 End: 08-11-2024 Follow-up encounter Maira Chen APRN.DIRECTOR OF FIELD COORDINATION Work Phone: Urology Start: 08-09-2024 End: 08-09-2024 ambulatory PRIYANKA SMITH Facility:[facility] Start: 08-09-2024 End: 08-09-2024 Office outpatient visit 15 minutes Maira Chen APRN.DIRECTOR OF FIELD COORDINATION Work Phone: Urology Comment on above: Gross hematuria (Karyn michele Dx); Nephrolithiasis Start: 08-08-2024 End: 08-08-2024 Telephone encounter Priyanka Smith MD Work Phone: [facility] Start: 08-07-2024 End: 08-07-2024 Telephone encounter Wiley Benitez MD Work Phone: [facility] Start: 08-04-2024 End: 08-04-2024 Telemedicine consultation with patient German Grubbs DIRECTOR OF FIELD COORDINATION Work Phone: URO/Gynecology Start: 08-04-2024 End: 08-17-2024 ambulatory German Grubbs APRN.DIRECTOR OF FIELD COORDINATION Work Phone: URO/Gynecology Comment on above: Chronic interstitial cystitis (Primary Dx); Gross hematuria Bleeding Start: 08-03-2024 End: 08-03-2024 ambulatory PRIYANKA SMITH Facility:[facility] Start: 08-03-2024 End: 08-03-2024 Office outpatient visit 25 minutes Bogdan Roberts MD Work Phone: Neurology Comment on above: Parkinsonism, unspec ified Parkinsonism type (HCC) (Primary Dx); Neuroleptic-induced tardive dyskinesia; Stage 3b chronic kidney disease (HCC) Start: 08-01-2024 End: 08-08-2024 Follow-up encounter Juwan Land APRN.CNP Work Phone: [facility] [place] Start: 07-31-2024 End: 07-31-2024 ambulatory Priyanka Smith MD Work Phone: [facility] [place] Comment on above: Bilateral arm pain Start: 07-31-2024 End: 07-31-2024 Office outpatient visit 25 minutes Juwan Land APRN.DIRECTOR OF FIELD COORDINATION Work Phone: [facility] [place] Comment on above: Myalgia (Primary Dx) ; Costochondritis; Pain in both upper arms; Orthostatic hypotension Start: 07-19-2024 End: 07-19-2024 ambulatory [facility] Facility:[facility] Start: 07-10-2024 End: 07-10-2024 Patient encounter procedure Jacqueline Valadez APRN.DIRECTOR OF FIELD COORDINATION Work Phone: [facility] [place] Comment on above: Medicare annual well ness visit, subsequent (Primary Dx); Hypothyroidism, unspecified type; Stage 3a chronic kidney disease (HCC); History of tremor; Post-menopausal Start: 07-10-2024 End: 07-10-2024 ambulatory [facility] Facility:[facility] Start: 07-07-2024 End: 07-07-2024 Patient encounter procedure Hilary EASLEY [facility] Work Phone: Start: 07-07-2024 End: 07-07-2024 [facility] Facility:[facility] Start: 07-04-2024 End: 07-04-2024 ambulatory [facility] Facility:[facility] Start: 06-26-2024 End: 06-26-2024 Patient encounter procedure Raul Juan MD Work Phone: Orthopaedics Comment on above: Pain of right thumb (Primary Dx) Start: 06-26-2024 End: 06-26-2024 ambulatory [facility] Facility:[facility] Start: 06-26-2024 End: 06-26-2024 Subsequent hospital visit by physician Griselda [facility] [place] Work Phone: Radiology Comment on above: Right hand pain [M79 .641] Start: 06-20-2024 End: 06-20-2024 E-mail encounter from caregiver Becca Javier Mir APRN.DIRECTOR OF FIELD COORDINATION Work Phone: Pulmonary Medicine Start: 06-20-2024 End: 06-20-2024 ambulatory Becca Mir DUST BOX TENDER.DIRECTOR OF FIELD COORDINATION Work Phone: Pulmonary Medicine Comment on above: update Refill Request Start: 06-20-2024 End: 06-20-2024 Office outpatient visit 15 minutes Becca Mir DUST BOX TENDER.DIRECTOR OF FIELD COORDINATION Work Phone: Pulmonary Medicine Comment on above: NSIP (nonspecific in terstitial pneumonitis) (HCC) (Primary Dx); senior care current use of immunosuppressive drug; CKD stage 3b, GFR 30-44 ml/min (HCC) Start: 06-14-2024 End: 06-14-2024 Orders Only Raul Juan MD Work Phone: Orthopaedics Comment on above: Right hand pain (Karyn michele Dx) Start: 06-12-2024 End: 06-12-2024 ambulatory KAREN ARTEAGA [facility] Facility: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] Start: 06-09-2024 End: 06-09-2024 ambulatory Wiley Benitez MD Work Phone: URO/Gynecology Comment on above: Chronic interstitial cystitis (Primary Dx) Start: 06-09-2024 End: 06-09-2024 Telemedicine consultation with patient Wiley Benitez MD Work Phone: URO/Gynecology Start: 06-06-2024 ambulatory Priyanka Smith Facilit y:[facility] Start: 06-06-2024 End: 06-06-2024 ambulatory Priyanka Smith Facility:[facility] Start: 05-31-2024 End: 05-31-2024 Telephone encounter Jacqueline Tannhof DUST BOX TENDER.DIRECTOR OF FIELD COORDINATION Work Phone: [facility] [place] Comment on above: Results (Knee Xray ) Start: 05-30-2024 End: 05-30-2024 ambulatory BOGDAN ROBERTS Facility:[facility] Start: 05-30-2024 End: 05-30-2024 Patient encounter procedure Gemma Roberts DUST BOX TENDER.DIRECTOR OF FIELD COORDINATION Work Phone: Neurology Comment on above: Parkinsonism, unspec ified Parkinsonism type (HCC) (Primary Dx); Dyskinesia, tardive Start: 05-26-2024 End: 05-26-2024 ambulatory [facility]ck[facility] Facility:[facility] Start: 05-24-2024 End: 05-24-2024 ambulatory [facility] Facility:[facility] Start: 05-24-2024 End: 05-24-2024 Subsequent hospital visit by physician Griselda [facility] [place] Work Phone: Radiology Comment on above: Acute pain of both k nees [M25.561, M25.562] Start: 05-24-2024 End: 05-24-2024 Patient encounter procedure Jacqueline Valadez DUST BOX TENDER.DIRECTOR OF FIELD COORDINATION Work Phone: [facility] [place] Comment on above: Acute pain of both k nees (Primary Dx) Start: 05-24-2024 End: 05-24-2024 [facility] Start: 05-23-2024 End: 05-23-2024 ambulatory Lab/[place] [facility] Work Phone: Hematology/Oncology Comment on above: Stage 3a chronic kid ermias disease (HCC) (Primary Dx) Start: 05-22-2024 End: 05-23-2024 Refill Karen Alcantara MD Work Phone: Pulmonary Medicine Comment on above: Refill Request Amitriptyline Start: 05-18-2024 End: 05-18-2024 ambulatory LATHA CUEVAS Facility:[facility] Start: 05-18-2024 End: 05-18-2024 Patient encounter procedure Latha Cuevas MD Work Phone: Endocrinology Comment on above: ACTH elevation (Prim abilio Dx) Start: 05-11-2024 End: 05-11-2024 [facility] Start: 05-05-2024 End: 05-05-2024 [facility] Facility: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 Start: 04-10-2024 End: 04-10-2024 Telephone encounter Priyanka Smith MD Work Phone: Family Medicine [place] Comment on above: Appointment; Patient Update Start: 04-07-2024 End: 04-07-2024 Patient encounter procedure Phong Blake MD [facility] Phone: [facility] Comment on above: Calculus, ureter [N2 0.1] (Primary Dx) Start: 04-07-2024 End: 04-07-2024 ambulatory PHONG BLAKE [facility] Start: 2024 End: 2024 ambulatory Priyanka Smith Facility:[facility] Start: 04-05-2024 End: 04-05-2024 ambulatory PRIYANKA SMITH Facility:[facility] Start: 04-03-2024 End: 2024 Telephone encounter Aishwarya Fraire MD Work Phone: [facility] Comment on above: Forms/questionnaires Start: 03-24-2024 End: 03-27-2024 Telephone encounter Phong Blake MD Work Phone: [facility] Comment on above: Appointment Start: 03-23-2024 End: 03-23-2024 ambulatory KATHERINE BOWEN [facility] Start: 03-23-2024 End: 03-23-2024 Subsequent hospital visit by physician Katherine Bowen MD Work Phone: [facility] Comment on above: Hydronephrosis with urinary obstruction due to ureteral calculus (Primary Dx) Start: 03-22-2024 End: 11-30-2024 Telephone encounter Priyanka Smith MD Work Phone: Family Medicine [place] Comment on above: Consult Start: 03-21-2024 End: 03-21-2024 Telephone encounter Gemma Roberst APRN.DIRECTOR OF FIELD COORDINATION Work Phone: Neurological Religious Comment on above: Forms (Skin Biopsy - [employer]) Start: 03-17-2024 End: 03-17-2024 ambulatory Karen Alcantara MD Work Phone: Pulmonary Medicine Comment on above: Prednisone Start: 03-16-2024 End: 03-16-2024 Patient encounter procedure Priyanka Smith MD Work Phone: [facility] Comment on above: Hospital discharge f ollow-up (Primary Dx); Need for vaccination; Kidney infection; Orthostatic hypotension; Acquired hypothyroidism; ILD (interstitial lung disease) (HCC) Start: 03-16-2024 End: 03-16-2024 ambulatory PRIYANKA SMITH Facility:[facility] Start: 03-16-2024 End: 03-16-2024 Office outpatient visit 40 minutes Gemma Roberts APRN.CNP Work Phone: Neurology Comment on above: Parkinsonism, unspec ified Parkinsonism type (HCC) (Primary Dx); Dyskinesia, tardive Start: 03-15-2024 End: 03-16-2024 Telephone encounter Katherine Bowen MD Work Phone: [facility] Clinical Communication Comment on above: Procedure Start: 03-07-2024 End: 03-07-2024 Telephone encounter Cecilia Barney PA-C Work Phone: [facility] Comment on above: Hospital Follow-up Start: 03-06-2024 End: 03-06-2024 Telephone encounter Cecilia Barney PA-C [facility] Start: 03-06-2024 End: 03-06-2024 ambulatory [facility] Start: 03-04-2024 End: 03-09-2024 Evaluation and management of inpatient Noel Contreras MD Work Phone: [facility] Surgical Progressive Care Unit PCU H6 Comment on above: Pyelonephritis (Prim abilio Dx); Syncope and collapse; Hydronephrosis with urinary obstruction due to ureteral calculus; Esophageal dysmotility Start: 03-03-2024 End: 03-04-2024 Emergency department patient visit Priyanka Smith Facility:[facility] Start: 03-03-2024 End: 03-03-2024 Subsequent hospital visit by physician Griselda [facility] Work Phone: Radiology Comment on above: Rib pain [R07.81] Start: 03-03-2024 End: 03-28-2024 ambulatory Jacqueline Valadez APRN.DIRECTOR OF FIELD COORDINATION Work Phone: [facility] [place] Comment on above: Blood pressure Start: 03-03-2024 End: 03-03-2024 Patient encounter procedure Wiley Benitez MD Work Phone: URO/Gynecology Comment on above: Chronic interstitial cystitis (Primary Dx); Dizziness Start: 03-01-2024 End: 03-01-2024 Patient encounter procedure Jacqueline Valadez APRN.DIRECTOR OF FIELD COORDINATION Work Phone: [facility] [place] Comment on above: Fall, initial encoun ter (Primary Dx); Hypotension, unspecified hypotension type; Rib pain Start: 03-01-2024 End: 03-03-2024 ambulatory Bogdan Roberts MD Work Phone: Neurology Comment on above: Reglan Start: 02-02-2024 End: 02-02-2024 Telephone encounter Jacqueline Valadez APRN.DIRECTOR OF FIELD COORDINATION Work Phone: [facility] Comment on above: Results (Labs ) Start: 02-01-2024 End: 02-01-2024 Refill Karen Alcantara MD Work Phone: Pulmonary Medicine Comment on above: Refill Request Start: 01-31-2024 End: 01-31-2024 ambulatory Wiley Benitez MD Work Phone: URO/Gynecology Comment on above: Amitriptyline Start: 01-13-2024 End: 01-13-2024 Office outpatient new 45 minutes Bogdan Roberts MD Work Phone: Neurology Comment on above: Tremor (Primary Dx); Dyskinesia, tardive; Drug-induced parkinsonism (HCC) Start: 01-11-2024 End: 01-11-2024 Patient encounter procedure Wiley Benitez MD Work Phone: URO/Gynecology Comment on above: Chronic interstitial cystitis (Primary Dx) Start: 12-28-2023 End: 12-28-2023 Patient encounter procedure Jacqueline Valadez APRN.DIRECTOR OF FIELD COORDINATION Work Phone: [facility] Comment on above: Tremor (Primary Dx); Hypothyroidism, [...] encounter procedure Wiley Benitez MD Work Phone: REFERENCE TEST CLERK [facility] Comment on above: Overactive bladder ( Primary Dx); Urinary frequency Start: 11-29-2023 End: 11-29-2023 Patient encounter procedure Charis Peterchasidy BE.MARÍA Work Phone: OB/Gynecology Comment on above: Encounter for gyneco logical examination (general) (routine) without abnormal findings (Primary Dx); Pap smear for cervical cancer screening; Encounter for screening mammogram for breast cancer Start: 11-29-2023 End: 11-29-2023 Patient encounter status Charis Lopez DUST BOX TENDER.CNM Work Phone: [facility] Start: 11-29-2023 End: 11-29-2023 Subsequent hospital visit by physician Griselda [facility] [place]asmine Work Phone: Radiology Comment on above: Kidney stone [N20.0] Start: 11-22-2023 Telephone encounter Mathew Yang MD Work Phone: [facility] Comment on above: Appointment Start: 11-22-2023 End: 11-22-2023 ambulatory MATHEW YANG JR Facility:[facility] Start: 11-12-2023 Telephone encounter Wiley Benitez MD Work Phone: REFERENCE TEST CLERK [facility] Comment on above: 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 - O ther Start: 11-10-2023 Telephone encounter Wiley Benitez MD Work Phone: [facility] Comment on above: Insurance Authorizat ion (Prior Auth Denied: Appeal Requested) Start: 11-09-2023 End: 11-09-2023 Patient encounter procedure Mathew Yang MD Work Phone: Urology Comment on above: Kidney stone (Primar y Dx) Start: 11-04-2023 End: 11-04-2023 Subsequent hospital visit by physician Xr [facility] [place] Work Phone: Radiology Comment on above: Kidney stone [N20.0] Start: 11-02-2023 Telephone encounter Wiley Benitez MD Work Phone: [facility] Comment on above: Insurance Authorizat ion (Prior Auth Delayed Additional Information Needed Requested) Start: 11-02-2023 End: 11-02-2023 Subsequent hospital visit by physician [facility] (I-Stat) Work Phone: Cat Scan Start: 10-20-2023 Telephone encounter Wiley Benitez MD Work Phone: REFERENCE TEST CLERK [facility] Comment on above: Care Coordination (B otox) Start: 10-14-2023 ambulatory Jacqueline Valadez APRN.DIRECTOR OF FIELD COORDINATION [facility] Start: 10-14-2023 End: 10-14-2023 Patient encounter procedure Jacqueline Valadez APRN.DIRECTOR OF FIELD COORDINATION Work Phone: [facility] Comment on above: Tremor (Primary Dx) Consult to Dr Miller Start: 10-07-2023 End: 10-07-2023 Patient encounter procedure Tariq Brooks DUST BOX TENDER.DIRECTOR OF FIELD COORDINATION Work Phone (unformatted): [phone] REFERENCE TEST CLERK [facility] Comment on above: Overactive bladder ( Primary Dx); Vulvar burning; Vaginal atrophy Start: 09-16-2023 End: 09-16-2023 Patient encounter procedure Karen Alcantara MD Work Phone: Pulmonary Medicine Comment on above: NSIP (nonspecific in terstitial pneumonitis) (HCC) (Primary Dx); Current chronic use of systemic steroids; senior care current use of immunosuppressive drug Start: 09-09-2023 E-mail encounter fro m caregiver Tariq Brooks DUST BOX TENDER.DIRECTOR OF FIELD COORDINATION Work Phone (unformatted): [phone] REFERENCE TEST CLERK [facility] Start: 09-09-2023 Follow-up encounter Tariq Wood surindersabrina DUST BOX TENDER.DIRECTOR OF FIELD COORDINATION Work Phone (unformatted): [phone] REFERENCE TEST CLERK [facility] Comment on above: Follow Up Start: 09-09-2023 End: 09-09-2023 ambulatory Tariq Brooks DUST BOX TENDER.DIRECTOR OF FIELD COORDINATION Work Phone (unformatted): [phone] REFERENCE TEST CLERK [facility] Comment on above: Urinary frequency (P rimary Dx); Vaginal burning Start: 09-09-2023 End: 09-09-2023 Telemedicine consultation with patient Tariq Brooks APRN.DIRECTOR OF FIELD COORDINATION Work Phone (unformatted): [phone] REFERENCE TEST CLERK [facility] Start: 09-02-2023 End: 09-02-2023 Patient encounter procedure Tariq Brooks DUST BOX TENDER.DIRECTOR OF FIELD COORDINATION Work Phone (unformatted): [phone] REFERENCE TEST CLERK [facility] Comment on above: Overactive bladder ( Primary Dx); Urinary frequency; Dysuria; Neurostimulator device in situ Start: 09-01-2023 Refill Charis oro DUST BOX TENDER.CNM Work Phone: OB/Gynecology Comment on above: Refill Request Start: 08-19-2023 Documentation procedure Mammog ruthie Coordinator [facility] Start: 08-19-2023 Letter encounter Mammography Coordinator [facility] Department Start: 08-18-2023 End: 08-18-2023 Subsequent hospital visit by physician Screen Mammo [facility] Mammogram Comment on above: Encounter for screen ing mammogram for malignant neoplasm of breast [Z12.31] Start: 08-09-2023 ambulatory Tariq Brooks DUST BOX TENDER.DIRECTOR OF FIELD COORDINATION Work Phone (unformatted): [phone] REFERENCE TEST CLERK [facility] Comment on above: Interstim Refill Request Start: 08-06-2023 Telephone encounter Charis talbot APRN.CNM Work Phone: OB/Gynecology Comment on above: Orders (Mammogram) Start: 06-22-2023 End: 06-22-2023 Patient encounter procedure Priyanka Smith MD Work Phone: [facility] [place] Comment on above: Medicare annual well ness visit, initial (Primary Dx); Hypothyroidism, unspecified type; ILD (interstitial lung disease) (HCC); Low sodium levels; OAB (overactive bladder); Encounter for screening mammogram for malignant neoplasm of breast; Stage 3a chronic kidney disease (HCC); Obesity, Class I, BMI 30-34.9 Start: 03-09-2023 E-mail encounter fro m caregiver Tariq Cecilia BE.DIRECTOR OF FIELD COORDINATION Work Phone (unformatted): [phone] [place] [facility] Start: 03-09-2023 Follow-up encounter Tariq Israel beverly DUST BOX TENDER.DIRECTOR OF FIELD COORDINATION Work Phone (unformatted): [phone] Urogynecology Comment on above: Follow Up Start: 03-01-2023 End: 03-01-2023 Nursing evaluation of patient and report Mi Nurse Work Phone: [facility] Comment on above: Need for vaccination (Primary Dx) Start: 02-25-2023 End: 02-25-2023 Patient encounter procedure Tariq Brooks HAILE.DIRECTOR OF FIELD COORDINATION Work Phone (unformatted): [phone] REFERENCE TEST CLERK [facility] Comment on above: Post-operative state (Primary Dx); Urinary frequency Start: 02-24-2023 End: 02-24-2023 ambulatory Immunization Clinic Nurse [place] Work Phone: [facility] [place] Start: 02-08-2023 Refill Karen Alcantara MD Work Phone: Pulmonary Medicine Comment on above: Refill Request Start: 01-28-2023 End: 01-28-2023 ambulatory [facility] Facility:[facility] Start: 01-15-2023 End: 01-15-2023 Patient encounter procedure John Mg MD Work Phone: REFERENCE TEST CLERK [facility] Comment on above: Preoperative examina tion (Primary Dx); OAB (overactive bladder); Urge urinary incontinence; Urinary frequency; Urinary urgency Start: 01-15-2023 End: 01-15-2023 Preprocedural examination done John Mg MD Work Phone: [facility] Start: 01-12-2023 End: 01-12-2023 ambulatory PRIYANKA SMITH Facility:[facility] Start: 01-12-2023 Encounter for other preprocedural examination MATHEW YANG JR [facility] Start: 01-12-2023 End: 01-12-2023 Admission to establishment [place] [id number] Work Phone: [facility] Start: 01-12-2023 End: 01-12-2023 ambulatory [place] [address] Work Phone: Pre Anesthesia Comment on above: Preoperative examina tion (Primary Dx); NSIP (nonspecific interstitial pneumonitis) (HCC); Esophageal dysmotility; Acquired hypothyroidism; Thymoma, malignant (HCC); Current chronic use of systemic steroids; Stage 3a chronic kidney disease (HCC) Start: 01-12-2023 End: 01-12-2023 Preprocedural examination done [place] [address] Work Phone: [facility] Work Phone: Start: 01-02-2023 ambulatory John swenson MD Work Phone: REFERENCE TEST CLERK [facility] Comment on above: Metronidazole sympto m diary Start: 12-22-2022 End: 12-22-2022 Patient encounter procedure Priyanka Smith MD Work Phone: [facility] [place] Comment on above: Hypothyroidism, unsp ecified type (Primary Dx); Brad esophagitis (HCC); Epigastric pain; Esophageal dysmotility; ILD (interstitial lung disease) (HCC); OAB (overactive bladder); Low sodium levels; 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); Thymoma, malignant (HCC) Start: 11-25-2022 Refill Priyanka rausch MD Work Phone: [facility] [place] Comment on above: Refill Request Start: 11-16-2022 End: 11-16-2022 ambulatory Pulm Lab [facility] Work Phone: [facility] Comment on above: Spirometry Start: 11-16-2022 End: 11-16-2022 Patient encounter procedure Pulm Lab [facility] Work Phone: [facility] [place] Start: 11-06-2022 Orders Only John [...] 10-27-2022 Subsequent hospital visit by physician [facility] (I-Stat) Work Phone: Cat Scan Comment on above: 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) ([facility]) [J84.89] Start: 10-15-2022 Telephone encounter Mathew Yang MD Work Phone: [facility] Comment on above: Appointment Start: 10-15-2022 ambulatory PRIYANKA SMITH [facility] ity:[facility] Start: 10-15-2022 End: 10-15-2022 Subsequent hospital visit by physician [facility] Work Phone: Molecular Imaging Comment on above: Hydronephrosis with ureteropelvic junction (UPJ) obstruction [Q62.11] Start: 10-13-2022 End: 10-13-2022 ambulatory Lala Ruiz APRN.DIRECTOR OF FIELD COORDINATION Work Phone: URO/Gynecology Comment on above: Nocturia (Primary Dx ); Urinary frequency; OAB (overactive bladder) Start: 10-13-2022 End: 10-13-2022 Telemedicine consultation with patient Lala Ruiz APRN.DIRECTOR OF FIELD COORDINATION Work Phone: [facility] Start: 09-16-2022 End: 09-16-2022 Nursing evaluation of patient and report Uro Chief Gauger Nurse [place] Work Phone: REFERENCE TEST CLERK [facility] Comment on above: OAB (overactive blad jeanette) (Primary Dx) Start: 08-20-2022 End: 08-20-2022 Patient encounter procedure Priyanka Smith MD Work Phone: [facility] [place] Comment on above: Bronchitis (Primary Dx); ILD (interstitial lung disease) ([facility]); Subacute cough Start: 08-19-2022 Refill Karen Alcantara MD Work Phone: Pulmonary Medicine Comment on above: Refill Request Start: 08-12-2022 End: 08-12-2022 Subsequent hospital visit by physician Griselda [facility] [place] Work Phone: Radiology Comment on above: Acute cough [R05.1] Start: 08-12-2022 End: 08-12-2022 Office outpatient visit 25 minutes Guillermo Mccormick DUST BOX TENDER.DIRECTOR OF FIELD COORDINATION Work Phone: [facility] Comment on above: Acute cough (Primary Dx); Sinobronchitis Start: 08-12-2022 Telephone encounter Guillermo silverman APRN.DIRECTOR OF FIELD COORDINATION Work Phone: [facility] Comment on above: Results Start: 08-11-2022 ambulatory MATHEW CHERRY JR Facility:[facility] Start: 08-11-2022 End: 08-11-2022 Subsequent hospital visit by physician Radio Kingsley [place] [facility] Work Phone: Radiology Comment on above: Kidney stone [N20.0] Start: 08-11-2022 End: 08-11-2022 Patient encounter procedure Mathew Yang MD Work Phone: Urology Comment on above: Kidney stone (Primar y Dx); 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; Hydronephrosis with ureteropelvic junction (UPJ) obstruction Start: 07-24-2022 Documentation procedure Mammog ruthie Coordinator [facility] Start: 07-24-2022 Letter encounter Mammography Coordinator [facility] Department Start: 07-23-2022 End: 07-23-2022 Subsequent hospital visit by physician Screen Mammo [facility] Mammogram Comment on above: Encounter for screen ing mammogram for breast cancer [Z12.31] Start: 07-01-2022 End: 07-01-2022 Patient encounter procedure Brandi EASLEY Work Phone: [facility] Comment on above: Sore throat (Primary Dx); Fever, unspecified fever cause Start: 06-22-2022 End: 06-22-2022 Patient encounter procedure Priyanka Smith MD Work Phone: [facility] [place] Comment on above: Acquired hypothyroid ism (Primary Dx); Brad infection; Need for vaccination; ILD (interstitial lung disease) ([facility]) Start: 06-17-2022 Manual pelvic examination Vic Mg MD Work Phone: Urogynecology Comment on above: Acquired hydronephro sis with ureteropelvic junction (UPJ) obstruction (Primary Dx) Start: 06-12-2022 Refill Priyanka rausch MD Work Phone: [facility] [place] Comment on above: Refill Request Start: 06-09-2022 End: 06-09-2022 Subsequent hospital visit by physician [facility] (I-Stat) Work Phone: Cat Scan Comment on above: Gross hematuria [R31 .0] Start: 05-29-2022 Telephone encounter John hansen MD Work Phone: REFERENCE TEST CLERK [facility] Comment on above: Future Appointment ( Cystoscopy possible Botox) Start: 05-26-2022 Telephone encounter German Tran x DUST BOX TENDER.DIRECTOR OF FIELD COORDINATION Work Phone: Urogynecology Comment on above: Results Start: 05-22-2022 End: 05-22-2022 ambulatory Proc Shared Work Phone: REFERENCE TEST CLERK [facility] Start: 05-22-2022 End: 05-22-2022 Patient encounter procedure Proc Rm Owens Shared Work Phone: [facility] Start: 04-21-2022 Refill Madelyn Franklin DO Work Phone: Gastroenterology Comment on above: Refill Request (Nyst atin) Start: 04-17-2022 End: 04-17-2022 Patient encounter procedure Karen Alcantara MD Work [...] End: 2022 Subsequent hospital visit by physician [facility] (I-Stat) Work Phone: Cat Scan Start: 04-03-2022 Telephone encounter Cleo ramos DUST BOX TENDER.DIRECTOR OF FIELD COORDINATION Work Phone: [facility] Comment on above: Results Start: 04-02-2022 End: 04-02-2022 Patient encounter procedure Genie Olson DUST BOX TENDER.DIRECTOR OF FIELD COORDINATION Work Phone: [facility] Comment on above: Urinary frequency (P rimary Dx) Start: 03-31-2022 Refill Charis oro DUST BOX TENDER.CNM Work Phone: OB/Gynecology Comment on above: Refill Request Start: 03-27-2022 Telephone encounter John hansen MD Work Phone: REFERENCE TEST CLERK [facility] Comment on above: Future Appointment ( Schedule UDS) Start: 03-24-2022 ambulatory John swenson MD Work Phone: REFERENCE TEST CLERK [facility] Comment on above: Medication Start: 03-23-2022 Telephone encounter Tariq beverly DUST BOX TENDER.DIRECTOR OF FIELD COORDINATION Work Phone (unformatted): [phone] REFERENCE TEST CLERK [facility] Comment on above: Results Start: 03-16-2022 End: 03-16-2022 Patient encounter procedure John Mg MD Work Phone: REFERENCE TEST CLERK [facility] Comment on above: Acute cystitis with hematuria (Primary Dx); Cystocele, midline; Urinary urgency; Urinary frequency; Overactive bladder Start: 03-05-2022 E-mail encounter fro m caregiver [facility] Provider [facility] Start: 03-05-2022 Follow-up encounter [facility] Provider [...] caregiver Karen Alcantara MD Work Phone: [facility] [place] Start: 02-16-2022 End: 02-16-2022 Patient encounter procedure Karen Alcantara MD Work Phone: Pulmonary Medicine Comment on above: 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); Ground glass opacity present on imaging of lung; Encounter for screening for osteoporosis; senior care current use of systemic steroids; senior care current use of immunosuppressive drug Start: 02-13-2022 Telephone encounter Priyanka toro MD Work Phone: NOC Comment on above: Appointment Start: 12-25-2021 ambulatory Charis oro APRN.CNM Work Phone: OB/Gynecology Comment on above: Use of vaginal cream Start: 12-22-2021 End: 12-22-2021 Nursing evaluation of patient and report Mi Nurse Work Phone: [facility] [place] Comment on above: Need for vaccination (Primary Dx) Start: 12-19-2021 End: 12-19-2021 Patient encounter procedure Priyanka Smith MD Work Phone: Family Medicine [place] Comment on above: Hypothyroidism, unsp ecified [...] End: 12-01-2021 Subsequent hospital visit by physician [facility] Work Phone: Radiology Comment on above: Cystocele, midline [ N81.11] Start: 11-26-2021 End: 11-26-2021 Refill Mathew Yang MD Work Phone: [facility] Comment on above: Refill Request Cystocele, midline ( Primary Dx); Encounter for gynecological examination (general) (routine) without abnormal findings; Encounter for screening mammogram for breast cancer; Urinary urgency; Urinary frequency; Vaginal atrophy Start: 11-26-2021 End: 11-26-2021 Patient encounter status Charis Lopez APRN.CNM Work Phone: OB/Gynecology Start: 11-18-2021 Telephone encounter Priyanka toro MD Work Phone: Family [facility] [place] Comment on above: Orders Start: 11-05-2021 End: 11-05-2021 Patient encounter procedure Cleo Maynard APRN.CNM Work Phone: OB/Gynecology Comment on above: Urinary urgency (Karyn michele Dx); Overactive bladder Start: 08-12-2021 End: 08-12-2021 ambulatory Respiratory Therapist [facility] Work Phone: Pulmonary Medicine Comment on above: Spirometry Start: 08-12-2021 End: 08-12-2021 Patient encounter procedure Respiratory Therapist [facility] Work Phone: [facility] Comment on above: 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); Antisynthetase syndrome (HCC); Esophageal dysmotility; History of immunosuppressive therapy; Interstitial pulmonary disease (HCC) Start: 08-06-2021 ambulatory Priyanka rausch MD Work Phone: [facility] [place] Comment on above: Omeprazole Start: 06-26-2020 End: 06-26-2020 Subsequent hospital visit by physician Xr [facility] [place] Work Phone: Radiology Comment on above: Acute right ankle pa in [M25.571] Procedures Date Procedure Procedure Detail Performing Clinician Start: 01-29-2025 Ct thorax w/o contra st material Karen Alcantara MD Work Phone: Start: 01-26-2025 Basic metabolic pane l calcium total Spike Jay Strange DO Work Phone: Start: 01-25-2025 Basic metabolic pane l calcium total Spike Jay Strange DO Work Phone: Start: 01-24-2025 FL GUIDANCE OR USE O NLY - NON-RESULTABLE Katherine Bowen MD Work Phone: Start: 01-24-2025 Level iv surg pathol ogy gross&microscopic exam Becca Joseph MD Work Phone: Start: 01-24-2025 End: 01-24-2025 Hysteroscopy diagnostic separate procedure Becca Joseph MD Work Phone: Start: 01-24-2025 Basic metabolic pane l calcium total Spike Jay Strange DO Work Phone: Start: 01-23-2025 Basic metabolic pane l calcium total Candelaria Pineda NP Start: 01-23-2025 Drug screen quantita tive vancomycin Jennie Moschella DO Work Phone: Start: 01-22-2025 Iadna s aureus methi cillin resist amp probe tq Candelaria Pineda BOOK RETAILER Start: 01-22-2025 End: 01-22-2025 Culture bacterial quanttative colony count urine Tonny Ana Reji DO Work Phone: Start: 01-22-2025 URINE HOLD CUP Tonny Mendoza DO Work Phone: Start: 01-22-2025 End: 01-22-2025 Bacteria identified in Blood by Culture Tonny Mendoza DO Work Phone: Start: 01-22-2025 Blood count complete automated Tonny Mendoza DO Work Phone: Start: 01-22-2025 Ct abdomen & pelvis w/o contrast material Marlon Viramontes MD Work Phone: Start: 01-22-2025 Antibody screen ADINA BOWEN Comment on above: Performed By: #### L [id number] ####Cuprous Chloride Helper: LACY OROSCO ([phone])[facility] ([address] Start: 01-22-2025 Basic metabolic pane l calcium total Soco Avila MD Work Phone: Start: 01-22-2025 Blood typing serologic abo Soco Avila MD Work Phone: Start: 01-22-2025 Manual Differential panel - Blood Soco Avila MD Work Phone: Start: 01-22-2025 Ecg routine ecg w/le ast 12 lds trcg only w/o i&r Soco Avila MD Work Phone: Start: 01-21-2025 Computed tomography of abdomen and pelvis with intravenous contrast Dr. Priyanka Smith MD Work Phone: Start: 01-21-[address] Priyanka Smith MD Work Phone: Start: 01-21-[address] Priyanka Smith MD Work Phone: Start: 12-29-2024 Plain X-ray abdomen Dr. Priyanka Smith MD Work Phone: Start: 12-22-[address] Priyanka ramires MD Work Phone: Start: 10-26-2024 Spmtry w/vc expirato ry anya w/wo mxml vol vntj Becca Mir DUST BOX TENDER.DIRECTOR OF FIELD COORDINATION Work Phone: Start: 09-11-2024 Radex facial bones c omplete minimum 3 views Jasmyne Day MD Work Phone: Start: 09-11-2024 Radex hip unilateral with pelvis 2-3 views Jasmyne Day MD Work Phone: Start: 08-21-2024 Mammography Ina Alverto DO Work Phone: Start: 08-09-2024 Urnls dip stick/tabl et rgnt auto w/o microscopy Maira Chen DUST BOX TENDER.DIRECTOR OF FIELD COORDINATION Work Phone: Start: 04-10-2024 Urnls dip stick/tabl et rgnt auto w/o microscopy Jonathan Monterroso DUST BOX TENDER.DIRECTOR OF FIELD COORDINATION Work Phone: Start: 03-23-2024 FL GUIDANCE OR USE O NLY - NON-RESULTABLE Katherine Bowen MD Work Phone: Start: 03-16-2024 [employer] COVI D-19 VACCINE AGE 12+ YR [facility] Priyanka Smith MD Work Phone: Start: 03-09-2024 Basic metabolic pane l calcium total Jay Black MD Work Phone: Start: 03-09-2024 Manual Differential panel - Blood Jay Black MD Work Phone: Start: 03-08-2024 Assay of osmolality urine Deepika Rivera PA-C Work Phone: Start: 03-08-2024 Basic metabolic pane l calcium total Jay Black MD Work Phone: Start: 03-08-2024 Manual differential performed [Presence] in Blood Jay Black MD Work Phone: Start: 03-07-2024 Level iv surg pathol ogy gross&microscopic exam Chuned Roxane Sung MD Work Phone: Start: 03-07-2024 End: 03-07-2024 Egd transoral biopsy single/multiple Sayed Roxane Sung MD Work Phone: Start: 03-07-2024 Basic metabolic pane l calcium total Jay Black MD Work Phone: Start: 03-07-2024 Manual Differential panel - Blood Jay Black MD Work Phone: Start: 03-06-2024 Mra head w/o contrst material Jay Black MD Work Phone: Start: 03-06-2024 Electroencephalogram Michelle dorys Black MD Work Phone: Start: 03-06-2024 Echo tthrc r-t 2d w/ wom-mode compl spec&colr d Jay Black MD Work Phone: Start: 03-06-2024 Basic metabolic pane l calcium total Jay Black MD Work Phone: Start: 03-05-2024 FL GUIDANCE OR USE O NLY - NON-RESULTABLE Jay Black MD Work Phone: Start: 03-05-2024 End: 03-05-2024 Cysto w/insert ureteral stent Katherine Bowen MD Work Phone: Start: 03-05-2024 Culture bacterial qu anttative colony count urine Bogdan Patton MD Work Phone: Start: 03-05-2024 Ct abdomen & pelvis w/o contrast material Bogdan Patton MD Work Phone: Start: 03-05-2024 Basic metabolic pane l calcium total Maurilio Groves MD Work Phone: Start: 03-05-2024 Thyrotropin [Units/v olume] in Serum or Plasma Cecilia Barney PA-C Work Phone: Start: 03-04-2024 Us retroperitoneal r eal time w/image complete Maurilio Groves MD Work Phone: Start: 03-04-2024 Comprehensive metabolic panel Maurilio Groves MD Work Phone: Start: 03-04-2024 Ecg routine ecg w/le ast 12 lds trcg only w/o i&r Maurilio Groves MD Work Phone: Start: 03-03-2024 Radiologic exam chest 2 views Jacqueline Valadez DUST BOX TENDER.DIRECTOR OF FIELD COORDINATION Work Phone: Start: 01-31-2024 Lipid 1996 panel - S aimee or Plasma Wiley Benitez MD Work Phone: Start: 12-28-2023 Adult depression scr eening assessment Jacqueline Pauline DUST BOX TENDER.DIRECTOR OF FIELD COORDINATION Work Phone: Start: 12-01-2023 Urnls dip stick/tabl et rgnt auto w/o microscopy Wiley Benitez MD Work Phone: Start: 11-09-2023 Urnls dip stick/tabl et rgnt auto w/o microscopy Mathew Yang MD Work Phone: Start: 09-02-2023 Urnls dip stick/tabl et rgnt auto w/o microscopy Tariq Barley DUST BOX TENDER.DIRECTOR OF FIELD COORDINATION Work Phone (unformatted): [phone] Start: 02-25-2023 Urnls dip stick/tabl et rgnt auto w/o microscopy Tariq Barley DUST BOX TENDER.DIRECTOR OF FIELD COORDINATION Work Phone (unformatted): [phone] Start: 02-24-2023 [email or web address] COVI D-19 VACCINE (2022- SEASON) AGE 12+ YR Guillermo Croft MD Work Phone: Start: 02-24-2023 INFLUENZA VACCINE, A GE 6 MO - 64 YR, QUADRIVALENT (AFLURIA, FLULAVAL, FLUZONE) Guillermo Croft MD Work Phone: Start: 11-16-2022 Spmtry w/vc expirato ry anya w/wo mxml vol vntj Karen Alcantara MD Work Phone: Start: 10-27-2022 Ct thorax w/o contra st material Karen Alcantara MD Work Phone: Start: 10-15-2022 Kidney img morpholog y vascular flow 1 w/rx Mathew Yang MD Work Phone: Start: 08-12-2022 Radiologic exam chest 2 views Guillermo Jace DUST BOX TENDER.DIRECTOR OF FIELD COORDINATION Work Phone: Start: 08-11-2022 Radiologic exam abdomen 1 view Mathew Yang MD Work Phone: Start: 07-23-2022 CHYAN SCREENING W JENN Co sabrina Lopez DUST BOX TENDER.CNM Work Phone: Start: 07-23-2022 Mammography Mammograph y Coordinator Start: 07-01-2022 STREP A MOLECULAR (POC) Erin Aguirre PA-C Work Phone: Start: 06-09-2022 Ct abdomen & pelvis w/o contrst 1/> body re John Mg MD Work Phone: Start: 05-22-2022 Urnls dip stick/tabl et rgnt auto w/o microscopy [facility] Provider Start: 2022 Ct thorax w/o contra st material Karen Alcantara MD Work Phone: Start: 04-02-2022 Urnls dip stick/tabl et rgnt auto w/o microscopy Genie Olson DUST BOX TENDER.DIRECTOR OF FIELD COORDINATION Work Phone: Start: 03-16-2022 Culture bacterial qu anttative colony count urine John Mg MD Work Phone: Start: 03-16-2022 Urnls dip stick/tabl et rgnt auto w/o microscopy John Mg MD Work Phone: Start: 12-22-2021 [employer] COVI D-19 VACCINE, AGE 12+ YR ([facility]) Priyanka Smith MD Work Phone: Start: 12-19-2021 Adult depression scr eening assessment Priyanka Smith MD Work Phone: Start: 12-01-2021 Us transvaginal Courtkamryn Lopez DUST BOX TENDER.CNM Work Phone: Start: 11-26-2021 Urnls dip stick/tabl et rgnt auto w/o microscopy Cleo Maynard DUST BOX TENDER.CNM Work Phone: Start: 11-05-2021 Urnls dip stick/tabl et rgnt auto w/o microscopy Cleo Maynard DUST BOX TENDER.CNM Work Phone: Start: 08-12-2021 Spmtry w/vc expirato ry anya w/wo mxml vol vntj Sam Cuenca MD Work Phone: Start: 06-26-2021 Mammography Priyanka kelly MD Work Phone: Start: 12-16-2020 Adult depression scr eening assessment Priyanka Smith MD Work Phone: Start: 06-26-2020 Radex ankle complete minimum 3 views Harsha Swenson MD Work Phone: Start: 08-29-2019 Lipid 1996 panel - S aimee or Plasma Karen Alcantara MD Work Phone: Start: 12-22-2017 Colonoscopy Priyanka kelly MD Work Phone: Plan of Treatment Date Care Activity Detail Author Start: 03-01-2033 DTaP/Tdap/Td Vaccines (4 - Td or Tdap) DTaP/Tdap/Td Vaccines (4 - Td or Tdap) [facility] Start: 03-01-2033 Urine microalbumin profile DTaP,Tdap,Td Vaccine (4 - T d or Tdap) [facility] Start: 01-30-2029 Lipid panel Lipid Screening [facility] Start: 01-27-2028 Diabetes Screening Diabetes Screening [facility] Start: 12-23-2027 Colonoscopy COLONOSCOPY [facility] Start: 12-23-2027 COLORECTAL CANCER SCREENING COLORECTAL CANCER SCREENING [facility] Start: 12-23-2027 Screening for malignant neoplasm of colon [facility] Start: 12-21-2027 Diabetes Screening Diabetes Screening [facility] Start: 09-24-2027 Diabetes Screening Diabetes Screening [facility] Start: 07-20-2027 Diabetes Screening Diabetes Screening [facility] Start: 07-04-2027 Diabetes Screening Diabetes Screening [facility] Start: 05-11-2027 Diabetes Screening Diabetes Screening [facility] Start: 04-17-2027 Diabetes Screening Diabetes Screening [facility] Start: 03-09-2027 Diabetes Screening Diabetes Screening [facility] Start: 01-30-2027 Diabetes mellitus screening Diabetes Screening [facility] Start: 01-30-2027 Diabetes Screening Diabetes Screening [facility] Start: 12-15-2026 Diabetes Screening Diabetes Screening [facility] Start: 06-11-2026 Diabetes Screening Diabetes Screening [facility] Start: 01-30-2026 Annual PCP Team Chronic Disease Visit Annual PCP Team Chronic Disease Visit [facility] Start: 01-26-2026 Complete blood count Hemoglobin/Hematocrit [facility] Start: 01-26-2026 Creatinine measurement Serum Creatinine [facility] Start: 01-22-2026 End: 01-22-2026 Patient encounter procedure 01/22/2026 9:00 AM EDT Office Visit Urology [address] [address] Mathew Yang Jr., MD [address] [place] [phone] 1 yr follow up Urology Comment on above: 1 yr follow up Start: 01-10-2026 Annual PCP Team Chronic Disease Visit Annual PCP Team Chronic Disease Visit [facility] Start: 01-09-2026 End: 02-08-2026 XR Abdomen Supine and Upright XR ABDOMEN 1V SUPINE Radiology Routine Kidney stone Expected: 01/09/2026, Expires: 02/08/2026 [facility] Work Phone: Comment on above: Expected: 01/09/2026, Expires: Start: 01-09-2026 End: 01-09-2026 Patient encounter procedure 01/09/2026 8:00 AM EDT Appointment Radiology [address] [place], [place] [id number] Kidney stone [N20.0] Radiology Comment on above: Kidney stone [N20.0] Start: 12-27-2025 Annual PCP Team Chronic Disease Visit Annual PCP Team Chronic Disease Visit [facility] Start: 12-20-2025 Creatinine measurement Serum Creatinine [facility] Start: 12-13-2025 Annual PCP Team Chronic Disease Visit Annual PCP Team Chronic Disease Visit [facility] Start: 11-29-2025 Annual PCP Team Chronic Disease Visit Annual PCP Team Chronic Disease Visit [facility] Start: 11-02-2025 DIABETES SCREEN DIABETES SCREEN [facility] Start: 11-02-2025 Diabetes Screening Diabetes Screening [facility] Start: 09-28-2025 Creatinine measurement Serum Creatinine [facility] Start: 09-23-2025 Creatinine measurement Serum Creatinine [facility] Start: 09-11-2025 Annual PCP Team Chronic Disease Visit Annual PCP Team Chronic Disease Visit [facility] Start: 08-31-2025 Annual PCP Team Chronic Disease Visit Annual PCP Team Chronic Disease Visit [facility] Start: 08-22-2025 End: 08-22-2025 Patient encounter procedure 08/22/2025 8:30 AM EDT Appointment Mammogram [address] [place] [address] Encounter for screening mammogram for breast cancer [Z12.31] Mammogram Comment on above: Encounter for screening mammogram for br east cancer [Z12.31] Start: 08-21-2025 Screening for malignant neoplasm of breast [facility] Start: 07-31-2025 Annual PCP Team Chronic Disease Visit Annual PCP Team Chronic Disease Visit [facility] Start: 07-31-2025 Complete blood count Hemoglobin/Hematocrit [facility] Start: 07-19-2025 Creatinine measurement Serum Creatinine [facility] Start: 07-17-2025 End: 07-17-2025 Patient encounter procedure 07/17/2025 1:00 PM EST Office Visit [facility] [address] [place] [address] Jasmyne Day MD [address] [place] [address] Transfer of care Medicare Wellness [facility] Comment on above: Transfer of care Medicare Wellness Start: 07-16-2025 End: 07-16-2025 Patient encounter procedure 07/16/2025 12:00 PM EST Office Visit [facility] [address] [place] [address] Priyanka Smith MD [address] [place] [address] Medicare Wellness [facility] Comment on above: Medicare Wellness Start: 07-12-2025 End: 07-12-2025 Patient encounter procedure 07/12/2025 9:40 AM EST Office Visit [facility] [address] [place] [address] Jacqueline Valadez APRN.DIRECTOR OF FIELD COORDINATION [address] [place] [address] Medicare Wellness [facility] Comment on above: Medicare Wellness Start: 07-10-2025 Annual PCP Team Chronic Disease Visit Annual PCP Team Chronic Disease Visit [facility] Start: 07-10-2025 Creatinine measurement Serum Creatinine [facility] Start: 07-04-2025 Creatinine measurement Serum Creatinine [facility] Start: 05-26-2025 Creatinine measurement Serum Creatinine [facility] Start: 05-24-2025 Annual PCP Team Chronic Disease Visit Annual PCP Team Chronic Disease Visit [facility] Start: 05-23-2025 DIABETES SCREEN DIABETES SCREEN [facility] Start: 05-11-2025 Creatinine measurement Serum Creatinine [facility] Start: 04-17-2025 Creatinine measurement Serum Creatinine [facility] Start: 04-10-2025 Annual PCP Team Chronic Disease Visit Annual PCP Team Chronic Disease Visit [facility] Start: 04-05-2025 Creatinine measurement Serum Creatinine [facility] Start: 03-16-2025 Annual PCP Team Chronic Disease Visit Annual PCP Team Chronic Disease Visit [facility] Start: 03-09-2025 Complete blood count Hemoglobin/Hematocrit [facility] Start: 03-09-2025 Creatinine measurement Serum Creatinine [facility] Start: 03-05-2025 Thyroid stimulating hormone measurement TSH Level [facility] Start: 03-01-2025 Annual PCP Team Chronic Disease Visit Annual PCP Team Chronic Disease Visit [facility] Start: 03-01-2025 End: 05-31-2025 CBC W Auto Differential panel - Blood COMPLETE BLOOD COUNT AND DIFFERENTIAL Lab Routine Iron deficiency anemia, unspecified iron deficiency anemia type Expected: 03/01/2025, Expires: 05/31/2025 [facility] Work Phone: Comment on above: Expected: 03/01/2025, Expires: Start: 03-01-2025 End: 05-31-2025 Comprehensive metabolic 2000 panel - Serum or Plasma COMPREHENSIVE METABOLIC PANEL Lab Routine Vaginal bleeding Acute cystitis with hematuria Iron deficiency anemia, unspecified iron deficiency anemia type Expected: 03/01/2025, Expires: 05/31/2025 [facility] Comment on above: Expected: 03/01/2025, Expires: Start: 03-01-2025 End: 05-31-2025 Ferritin [Mass/volume] in Serum or Plasma FERRITIN Lab Routine Iron deficiency anemia, unspecified iron deficiency anemia type Expected: 03/01/2025, Expires: 05/31/2025 [facility] Comment on above: Expected: 03/01/2025, Expires: Start: 03-01-2025 End: 05-31-2025 Iron and Iron binding capacity panel - Serum or Plasma IRON AND TIBC Lab Routine Iron deficiency anemia, unspecified iron deficiency anemia type Expected: 03/01/2025, Expires: 05/31/2025 [facility] Comment on above: Expected: 03/01/2025, Expires: Start: 03-01-2025 End: 03-01-2025 Patient encounter procedure 03/01/2025 8:00 AM EDT Office Visit Neurology [address] [phone] Gemma Roberts APRN.DIRECTOR OF FIELD COORDINATION [address] [address] 3 month follow up Neurology Comment on above: 3 month follow up Start: 02-16-2025 ambulatory Ambulatory Facility:[facility] Start: 02-08-2025 End: 02-08-2025 Patient encounter procedure 02/08/2025 1:00 PM EDT Office Visit URO/Gynecology [address] [place], [place] [id number] Wiley Benitez MD [address] [place] [address] 6 month follow up for chronic IC and gross hematuria URO/Gynecology Comment on above: 6 month follow up for chronic IC and ara ss hematuria Start: 02-06-2025 End: 02-06-2025 Patient encounter procedure Pulmonary Me dicine Comment on above: ct follow up Start: 01-30-2025 Creatinine measurement Serum Creatinine [facility] Start: 01-30-2025 End: 01-30-2025 Patient encounter procedure 01/30/2025 10:00 AM EDT Office Visit [facility] [address] [place], [place] [address] Jasmyne Day MD [address] [place], [place] [phone] Discharged 01/26/25 Summa Varney - kidney stones (no availability with PCP dyad. Previously seen by Brown on 01/10/25) [facility] Comment on above: Discharged 01/26/25 Summa Varney - kidney stones (no availability with PCP dyad. Previously seen by Brown on 01/10/25) Start: 01-29-2025 End: 11-25-2025 CT Chest WO contrast CT CHEST WO IVCON Radiology Routine Interstitial pulmonary disease (HCC) Expected: 01/29/2025, Expires: 11/25/2025 [facility] Work Phone: Comment on above: Expected: 01/29/2025, Expires: Start: 01-29-2025 End: 01-29-2025 Patient encounter procedure 01/29/2025 9:20 AM EDT Appointment Cat Scan [address] [place], [place] [phone] Interstitial pulmonary disease (HCC) [J84.9] Cat Scan Comment on above: Interstitial pulmonary disease (HCC) [J8 4.9] Start: 01-25-2025 End: 01-25-2026 Basic metabolic 1998 panel - Serum or Plasma Basic metabolic panel Lab Routine Stage 3a chronic kidney disease (HCC) Expected: 01/25/2025 (Approximate), Expires: 01/25/2026 [facility] Work Phone: Comment on above: Expected: 01/25/2025 (Approximate), Expi res: 01/25/2026 Start: 01-22-2025 [facility] Start: 01-21-2025 Administration of blood product [facility] Start: 01-15-2025 COVID-19 Vaccine ( season) COVID-19 Vaccine ( season) [facility] Start: 01-15-2025 Influenza vaccination Influenza Vaccine (#1) [facility] Start: 01-10-2025 End: 01-10-2025 Patient encounter procedure 01/10/2025 8:40 AM EDT Office Visit Family [facility] [address] [place], [place] [id number] Jasmyne Day MD [address] [place], [place] [id number] 2 week follow up Family [facility] Comment on above: 2 week follow up Start: 01-09-2025 End: 01-09-2025 Patient encounter procedure 01/09/2025 2:30 PM EDT Office Visit Urology [address] [address] Mathew Yang Jr., MD [address] [place] [address] 1 yr follow up Urology Comment on above: 1 yr follow up Start: 12-27-2024 End: 12-27-2024 Patient encounter procedure 12/27/2024 2:20 PM EDT Office Visit Family [facility] [address] [place], [place] [phone] Peyton Diaz APRN.DIRECTOR OF FIELD COORDINATION [address] [place], [place] [phone] Follow up BP [facility] Comment on above: Follow up BP Start: 12-27-2024 Annual PCP Team Chronic Disease Visit Annual PCP Team Chronic Disease Visit [facility] Start: 12-27-2024 Anxiety Screening Anxiety Screening [facility] Start: 12-27-2024 Depression Screening Depression Screening [facility] Start: 12-27-2024 HIV screening HIV Screening [facility] Comment on above: Postponed from 1976 (Declined at t his time) Start: 12-26-2024 End: 12-26-2024 Patient encounter procedure 12/26/2024 9:00 AM EDT Office Visit Urology [address] [address] Mathew Yang Jr., MD [address] [place] [address] 1 yr follow up Urology Comment on above: 1 yr follow up Start: 12-22-2024 Patient discharge [facility] Start: 12-20-2024 End: 01-19-2025 XR Abdomen Supine and Upright XR ABDOMEN 1V SUPINE Radiology Routine Kidney stone Expected: 12/20/2024, Expires: 01/19/2025 [facility] Work Phone: Comment on above: Expected: 12/20/2024, Expires: Start: 12-20-2024 End: 12-20-2024 Patient encounter procedure 12/20/2024 8:00 AM EDT Appointment Radiology [address] [place] [address] Kidney stone [N20.0] Radiology Comment on above: Kidney stone [N20.0] Start: 12-15-2024 Complete blood count Hemoglobin/Hematocrit [facility] Start: 12-15-2024 Creatinine measurement Serum Creatinine [facility] Start: 12-13-2024 End: 12-13-2024 Patient encounter procedure 12/13/2024 7:40 AM EDT Office Visit [facility] [address] [place] [address] PodCyndi gusman APRN.DIRECTOR OF FIELD COORDINATION [address] [place] [address] 2 week BP check [facility] Comment on above: 2 week BP check Start: 12-06-2024 End: 12-06-2024 Patient encounter procedure 12/06/2024 8:15 AM EDT Office Visit OB/Gynecology [address] [place] [address] Charis Lopez APRN.CNM [address] [place] [address] Annual OB/Gynecology Comment on above: Annual Start: 12-04-2024 DIABETES SCREEN DIABETES SCREEN [facility] Start: 11-28-2024 End: 11-28-2024 Patient encounter procedure 11/28/2024 8:15 AM EDT Office Visit OB/Gynecology [address] [place] [address] Charis Lopez APRN.CNM [address] [place] [address] Annual OB/Gynecology Comment on above: Annual Start: 11-16-2024 End: 11-16-2024 Patient encounter procedure 11/16/2024 8:00 AM EDT Office Visit Neurology [address] [phone] Gemma Roberts APRN.DIRECTOR OF FIELD COORDINATION [address] [address] PD Neurology Comment on above: PD Start: 10-31-2024 End: 10-31-2024 ambulatory 10/31/2024 3:00 PM EDT OT/PT/Speech Visit [facility] [address] [place] [address] Leandro Vargas, PT [address] [place], [place] [phone] Overactive bladder [N32.81] [facility] Comment on above: Overactive bladder [N32.81] Start: 10-31-2024 End: 10-31-2024 Patient encounter procedure 10/31/2024 9:00 AM EDT Office Visit URO/Gynecology [address] [place] [address] German Grubbs, DUST BOX TENDER.DIRECTOR OF FIELD COORDINATION [address] [place] [address] follow up hematuria URO/Gynecology Comment on above: follow up hematuria Start: 10-26-2024 End: 10-26-2024 ambulatory 10/26/2024 10:45 AM EDT OT/PT/Speech Visit [facility] Therapy [address] [place] [address] Leandro Vargas, PT [address] [facility] [place] [address] Overactive bladder [N32.81] [facility] Comment on above: Overactive bladder [N32.81] Start: 10-26-2024 End: 10-26-2024 Patient encounter procedure 10/26/2024 9:30 AM EDT Office Visit Pulmonary Medicine [address] [place] [address] Karen Alcantara MD [address] [place] [address] 6 mo f/up Pulmonary Medicine Comment on above: 6 mo f/up Start: 10-26-2024 End: 10-26-2024 ambulatory [facility] Comment on above: NSIP (nonspecific interstitial pneumonit is) ([facility] [J84.89] Start: 10-17-2024 End: 10-17-2024 ambulatory 10/17/2024 10:30 AM EDT OT/PT/Speech Visit [facility] [address] [place] [address] Eufemia Anglin, PT, DPT Overactive bladder [N32.81] [facility] Comment on above: Overactive bladder [N32.81] Start: 10-13-2024 Annual PCP Team Chronic Disease Visit Annual PCP Team Chronic Disease Visit [facility] Start: 10-10-2024 End: 10-10-2024 ambulatory 10/10/2024 11:00 AM EDT OT/PT/Speech Visit [facility] [address] [place] [address] Leandro Vargas, PT [address] [place], [place] [id number] Overactive bladder [N32.81] [facility] Comment on above: Overactive bladder [N32.81] Start: 10-02-2024 End: 10-02-2024 ambulatory 10/02/2024 7:45 AM EDT OT/PT/Speech Visit [facility] [address] [place] [address] Leadnro Vargas, PT [address] [place] [address] Overactive bladder [N32.81] [facility] Comment on above: Overactive bladder [N32.81] Start: 09-28-2024 End: 09-28-2024 ambulatory 09/28/2024 9:15 AM EDT OT/PT/Speech Visit [facility] [address] [place] [address] Leandro Vargas, PT [address], [place] [id number] Fall in home, initial encounter [W19.XXXA, Y92.009] [facility] Comment on above: Fall in home, initial encounter [W19.XXX A, Y92.009] Start: 09-22-2024 End: 12-22-2024 Comprehensive metabolic 2000 panel - Serum or Plasma COMPREHENSIVE METABOLIC PANEL Lab Routine On Cellcept therapy Expected: 09/22/2024, Expires: 12/22/2024 [facility] Work Phone: Comment on above: Expected: 09/22/2024, Expires: Start: 09-22-2024 End: 09-22-2024 Patient encounter procedure 09/22/2024 1:00 PM EDT Office Visit Neurology [address] [phone] Rika Adam, DUST BOX TENDER.DIRECTOR OF FIELD COORDINATION [address] [place] [address] [facility] Comment on above: [place] Start: 09-13-2024 Covid-19 Vaccine (7 - 2024-25 season) Covid-19 Vaccine () [facility] Start: 08-31-2024 End: 11-30-2024 Thyrotropin [Units/volume] in Serum or Plasma [facility] Work Phone: Comment on above: Expected: 08/31/2024, Expires: Start: 08-31-2024 End: 08-31-2024 Patient encounter procedure 08/31/2024 9:40 AM EDT Office Visit Endocrinology [address] [place] [id number] Latha Cuevas MD [address] [place] [phone] two month follow up Endocrinology Comment on above: two month follow up Start: 08-28-2024 Lipid 1996 panel - Serum or Plasma Lipid Screening [facility] Start: 08-28-2024 Lipid panel Lipid Screening [facility] Start: 08-28-2024 LIPID SCREEN LIPID SCREEN [facility] Start: 08-21-2024 End: 08-21-2024 Patient encounter procedure 08/21/2024 9:10 AM EDT Appointment Mammogram [address] [place] [id number] Encounter for screening mammogram for breast cancer [Z12.31] Mammogram Comment on above: Encounter for screening mammogram for br east cancer [Z12.31] Start: 08-17-2024 End: 11-16-2024 Bacteria identified in Urine by Culture [facility] Work Phone: Comment on above: Expected: 08/17/2024 (Approximate), Expi res: 11/16/2024 Start: 08-17-2024 Screening for malignant neoplasm of breast Mammogram Screening [facility] Start: 08-17-2024 End: 11-16-2024 Urinalysis complete panel - Urine [facility] Comment on above: Expected: 08/17/2024 (Approximate), Expi res: 11/16/2024 Start: 08-14-2024 End: 08-14-2024 Patient encounter procedure 08/14/2024 1:45 PM EDT Appointment Radiology [address] [place] [address] right flank discomfort Radiology Comment on above: right flank discomfort Start: 08-10-2024 End: 09-09-2025 US Kidney - bilateral and Urinary bladder US KIDNEY/BLADDER Radiology Routine Gross hematuria Nephrolithiasis Expected: 08/10/2024 (Approximate), Expires: 09/09/2025 [facility] Work Phone: Comment on above: Expected: 08/10/2024 (Approximate), Expi res: 09/09/2025 Start: 08-09-2024 End: 08-09-2024 Patient encounter procedure 08/09/2024 2:00 PM EDT Office Visit Urology [address] [phone] Maira Chen, DUST BOX TENDER.DIRECTOR OF FIELD COORDINATION [address] [place], [place] [phone] hematuria and clots, see RUSSELL per [facility] Comment on above: hematuria and clots, see RUSSELL per [facility] Start: 08-08-2024 End: 08-08-2024 Patient encounter procedure 08/08/2024 9:40 AM EDT Office Visit Endocrinology [address] [place] [address] Latha Cuevas MD [address] [place] [address] F/U LABS (last seen 05/05/24) Endocrinology Comment on above: F/U LABS (last seen 05/05/24) Start: 08-04-2024 End: 08-04-2024 Follow-up encounter 08/04/2024 2:30 PM EDT [facility] URO/Gynecology [address] [place] [address] German Grubbs, DUST BOX TENDER.DIRECTOR OF FIELD COORDINATION [address] [place] [address] 6 week follow up URO/Gynecology Comment on above: 6 week follow up Start: 08-03-2024 End: 08-03-2024 Patient encounter procedure 08/03/2024 11:00 AM EDT Office Visit Neurology [address] [phone] Bogdan Roberts MD [address] [place] [address] 6 month follow up Neurology Comment on above: 6 month follow up Start: 07-31-2024 End: 10-30-2024 C reactive protein [Mass/volume] in Serum or Plasma [facility] Comment on above: Expected: 07/31/2024, Expires: Start: 07-31-2024 End: 10-30-2024 CBC W Auto Differential panel - Blood [facility] Comment on above: Expected: 07/31/2024, Expires: Start: 07-31-2024 End: 10-30-2024 Creatine kinase [Enzymatic activity/volume] in Serum or Plasma [facility] Comment on above: Expected: 07/31/2024, Expires: Start: 07-31-2024 End: 10-30-2024 Erythrocyte sedimentation rate [facility] Work Phone: Comment on above: Expected: 07/31/2024, Expires: Start: 07-28-2024 End: 07-28-2024 Follow-up encounter 07/28/2024 3:30 PM EDT [facility] URO/Gynecology [address] [place] [address] Wiley Benitez MD [address] [place] [address] 6 week follow up URO/Gynecology Comment on above: 6 week follow up Start: 07-10-2024 End: 07-10-2024 Patient encounter procedure 07/10/2024 10:00 AM EST Office Visit Family Medicine [place] [address] [place] [address] [place] [address] Jacqueline Valadez, HAILE.DIRECTOR OF FIELD COORDINATION [address] [facility] [place] [address] medicare wellness [facility] Comment on above: medicare wellness Start: 06-29-2024 End: 09-28-2024 CBC W Auto Differential panel - Blood COMPLETE BLOOD COUNT AND DIFFERENTIAL Lab Routine ILD (interstitial lung disease) (HCC) Expected: 06/29/2024, Expires: 09/28/2024 [facility] Comment on above: Expected: 06/29/2024, Expires: Start: 06-29-2024 End: 09-28-2024 Comprehensive metabolic 2000 panel - Serum or Plasma COMPREHENSIVE METABOLIC PANEL Lab Routine Low sodium levels Expected: 06/29/2024, Expires: 09/28/2024 [facility] Comment on above: Expected: 06/29/2024, Expires: Start: 06-29-2024 End: 09-28-2024 Thyrotropin [Units/volume] in Serum or Plasma THYROID STIMULATING HORMONE Lab Routine Hypothyroidism, unspecified type Expected: 06/29/2024, Expires: 09/28/2024 [facility] Comment on above: Expected: 06/29/2024, Expires: Start: 06-29-2024 End: 09-28-2024 Thyroxine (T4) free [Mass/volume] in Serum or Plasma T4 FREE/FREE THYROXINE Lab Routine Hypothyroidism, unspecified type Expected: 06/29/2024, Expires: 09/28/2024 [facility] Comment on above: Expected: 06/29/2024, Expires: Start: 06-26-2024 End: 09-25-2024 Comprehensive metabolic 2000 panel - Serum or Plasma COMPREHENSIVE METABOLIC PANEL Lab Routine Function kidney decreased Expected: 06/26/2024, Expires: 09/25/2024 [facility] Work Phone: Comment on above: Expected: 06/26/2024, Expires: Start: 06-26-2024 End: 09-25-2024 Hemoglobin A1c in Blood HEMOGLOBIN A1C Lab Routine Prediabetes Expected: 06/26/2024, Expires: 09/25/2024 [facility] Comment on above: Expected: 06/26/2024, Expires: Start: 06-26-2024 End: 09-25-2024 Lipid 1996 panel - Serum or Plasma LIPID PANEL BASIC Lab Routine High triglycerides Expected: 06/26/2024, Expires: 09/25/2024 [facility] Comment on above: Expected: 06/26/2024, Expires: Start: 06-26-2024 End: 06-26-2024 Patient encounter procedure 06/26/2024 8:45 AM EST Office Visit Orthopaedics [address] [place] [address] Raul Juan MD [address] [place] [address] R wrist (surgery previously by [facility] 2017) swelling painful now Orthopaedics Comment on above: R wrist (surgery previously by [facility] ) swelling painful now Start: 06-22-2024 Annual PCP Team Chronic Disease Visit Annual PCP Team Chronic Disease Visit [facility] Start: 06-20-2024 End: 06-20-2024 Patient encounter procedure 06/20/2024 9:00 AM EST Office Visit Pulmonary Medicine [address] [place] [address] Becca Mir APRN.DIRECTOR OF FIELD COORDINATION [address] [place] [address] CT follow up Pulmonary Medicine Comment on above: CT follow up Start: 06-16-2024 End: 09-15-2024 ACTH STIMULATION,3 TIME POINTS ACTH STIMULATION,3 TIME POINTS Lab Routine ACTH elevation Expected: 06/16/2024, Expires: 09/15/2024 [facility] Work Phone: Comment on above: Expected: 06/16/2024, Expires: Start: 06-12-2024 End: 05-17-2025 CT Chest WO contrast [facility] Work Phone: Comment on above: Expected: 06/12/2024, Expires: Start: 06-12-2024 End: 06-12-2024 Patient encounter procedure 06/12/2024 11:00 AM EST Appointment Cat Scan [address] [place] [address] Interstitial pulmonary disease (HCC) [J84.9] Cat Scan Comment on above: Interstitial pulmonary disease (HCC) [J8 4.9] Start: 06-11-2024 Creatinine measurement Serum Creatinine [facility] Start: 06-10-2024 DIABETES SCREEN DIABETES SCREEN [facility] Start: 06-09-2024 End: 06-09-2024 Follow-up encounter 06/09/2024 3:30 PM EST [facility] URO/Gynecology [address], [place] [phone] Wiley Benitez MD [address] [place] [address] 4-6 week follow up URO/Gynecology Comment on above: 4-6 week follow up Start: 05-30-2024 End: 05-30-2024 Patient encounter procedure 05/30/2024 8:00 AM EST Office Visit Neurology [address] [phone] Gemma Roberts, DUST BOX TENDER.DIRECTOR OF FIELD COORDINATION [address] [address] Return in about 2 months (around 05/16/2024). Neurology Comment on above: Return in about 2 months (around 024). Start: 05-24-2024 End: 05-24-2024 Follow-up encounter Urogynecology Comment on above: 4-6 week follow up Start: 05-24-2024 End: 05-24-2024 Patient encounter procedure 05/24/2024 8:20 AM EST Office Visit [facility] [place] [address] [place], [place] [phone] Jacqueline Valadez, DUST BOX TENDER.DIRECTOR OF FIELD COORDINATION [address] [place], [place] [address] BL knee/leg pain Family Medicine [place] Comment on above: BL knee/leg pain Start: 05-17-2024 Advance Directive Discussion Advance Directive Discussion [facility] Start: 05-17-2024 Medicare Advantage Annual Wellness Visit Medicare Advantage Annual Wellness Visit [facility] Start: 05-11-2024 Covid-19 Vaccine () Covid-19 Vaccine () [facility] Start: 05-08-2024 Complete blood count Hemoglobin/Hematocrit [facility] Start: 05-05-2024 End: 08-04-2024 Comprehensive metabolic 2000 panel - Serum or Plasma COMPREHENSIVE METABOLIC PANEL Lab Routine Secondary adrenal insufficiency (HCC) Expected: 05/05/2024, Expires: 08/04/2024 [facility] Comment on above: Expected: 05/05/2024, Expires: Start: 05-05-2024 End: 08-04-2024 Corticotropin [Mass/volume] in Plasma ACTH BLD Lab Routine Secondary adrenal insufficiency (HCC) Expected: 05/05/2024, Expires: 08/04/2024 [facility] Comment on above: Expected: 05/05/2024, Expires: Start: 05-05-2024 End: 08-04-2024 Cortisol [Mass/volume] in Serum or Plasma CORTISOL, SERUM Lab Routine Secondary adrenal insufficiency (HCC) Expected: 05/05/2024, Expires: 08/04/2024 [facility] Work Phone: Comment on above: Expected: 05/05/2024, Expires: 5 Start: 05-05-2024 End: 05-05-2024 Patient encounter procedure 05/05/2024 8:00 AM EST Office Visit Endocrinology [address] [place] [place] [phone] Latha Cuevas MD [address] [place] [address] 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 (HCC) [E27.40]; 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] Endocrinology Comment on above: 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 (HCC) [E27.40]; Lo ng term systemic 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 [Z79.52] Start: 04-17-2024 End: 04-17-2024 Follow-up encounter 04/17/2024 3:30 PM EST [facility] URO/Gynecology [address] [place] [address] Wiley Benitez MD [address] [facility] [address] [place] [address] 6 week follow up URO/Gynecology Comment on above: 6 week follow up Start: 04-17-2024 End: 04-17-2024 Patient encounter procedure 04/17/2024 9:30 AM EST Office Visit Pulmonary Medicine [address] [place], [place] [phone] Karen Alcantara MD [address] [place], [place] [phone] 6 mo f/up Pulmonary Medicine Comment on above: 6 mo f/up Start: 04-07-2024 End: 04-07-2024 Patient encounter procedure 04/07/2024 9:20 AM EST Procedure Visit [facility] [address] [facility] [address] [place] [phone] Phong Blake MD [address] [facility] [address] [place] [phone] [facility] Start: 03-23-2024 End: 03-23-2024 Admission to same day surgery center 03/23/2024 12:30 PM EST - 03/23/2024 1:30 PM EST Surgery [facility] OR [address] [facility] [place] [phone] Katherine Bowen MD [address] [facility] [address] [place] [address] CYSTOSCOPY AND PYELOGRAM [53476 (CPT )] [facility] OR Comment on above: CYSTOSCOPY AND PYELOGRAM [43931 (CPT )] Start: 03-23-2024 End: 03-23-2024 Cysto bladder w/ureteral catheterization CYSTOSCOPY AND PYELOGRAM Calculus of ureter 03/23/2024 12:[address] [facility] Operating Room Start: 03-23-2024 End: 03-23-2024 Cysto w/insert ureteral stent CYSTOSCOPY WITH INSERTIO N URETERAL STENT Calculus of ureter 03/23/2024 12:[address] [facility] Operating Room Start: 03-23-2024 End: 03-23-2024 Cysto w/ureteroscopy w/lithotripsy CYSTOSCOPY WITH URETEROSCOPY AND OR PYELOSCOPY WITH REMOVAL OR MANIPULATION CALCULUS WITH LITHOTRIPSY Calculus of ureter 03/23/2024 12:[address] [facility] Operating Room Start: 03-23-2024 Subsequent hospital visit by physician 03/23/2024 12:30 PM EST Hospital Encounter [facility] MAIN OR [address] [place] [phone] Katherine Bowen MD [address] [facility] 3 [place] [address] [facility] MAIN OR Start: 03-17-2024 End: 06-16-2024 PHOSPHORYLATED ALPHA-SYNUCLEIN, SKIN BIOPSY PHOSPHORYLATED ALPHA-SYNUCLEIN, SKIN BIOPSY Lab Routine Parkinsonism, unspecified Parkinsonism type (HCC) Expected: 03/17/2024, Expires: 06/16/2024 [facility] Comment on above: Expected: 03/17/2024, Expires: Start: 03-16-2024 End: 03-16-2024 Patient encounter procedure 03/16/2024 9:00 AM EDT Office Visit Neurology [address] [phone] Gemma Roberts, DUST BOX TENDER.DIRECTOR OF FIELD COORDINATION [address] [place] [address] TD, secondary PDism, vs IPD Neurology Comment on above: TD, secondary PDism, vs IPD Start: 03-07-2024 End: 03-07-2024 Egd transoral biopsy single/multiple [facility] Gastroenterology Start: 03-07-2024 End: 03-07-2024 Evaluation and management of inpatient 03/07/2024 8:45 AM EDT - 03/07/2024 9:15 AM EDT Surgery [facility] [address] [facility] [place] [place] [phone] Jennifer Sung MD [address] [facility] [facility] [address] [place] [phone] ESOPHAGOGASTRODUODENOSCOPY WITH BIOPSY [46492 (CPT )] [facility] Comment on above: ESOPHAGOGASTRODUODENOSCOPY WITH BIOPSY [ 48226 (CPT )] Start: 03-06-2024 End: 03-06-2024 Patient encounter procedure 03/06/2024 9:40 AM EDT Office Visit [facility] [address] [place], [place] [address] Jacqueline Valadez APRN.DIRECTOR OF FIELD COORDINATION [address] [place], [place] [address] BP check [facility] Comment on above: BP check Start: 03-03-2024 End: 03-03-2024 Patient encounter procedure 03/03/2024 10:00 AM EDT Office Visit URO/Gynecology [address] [place] [address] Wiley Benitez MD [address] [facility] 6 [place] [address] 6 week follow up URO/Gynecology Comment on above: 6 week follow up Start: 01-28-2024 End: 04-28-2024 Comprehensive metabolic 2000 panel - Serum or Plasma COMPREHENSIVE METABOLIC PANEL Lab Routine Stage 3a chronic kidney disease (HCC) Function kidney decreased Expected: 01/28/2024, Expires: 04/28/2024 [facility] Work Phone: Comment on above: Expected: 01/28/2024, Expires: Start: 01-20-2024 End: 01-20-2024 Patient encounter procedure 01/20/2024 8:00 AM EDT Office Visit Neurology [address] [phone] Bogdan Roberts MD [address] [place] [address] Tremor [R25.1] Neurology Comment on above: Tremor [R25.1] Start: 01-16-2024 COVID-19 Vaccine ( season) COVID-19 Vaccine () [facility] Start: 01-16-2024 COVID-19 Vaccine () COVID-19 Vaccine () [facility] Start: 01-16-2024 Covid-19 Vaccine () Covid-19 Vaccine () [facility] Start: 01-16-2024 Covid-19 Vaccine () Covid-19 Vaccine () [facility] Start: 01-16-2024 Influenza vaccination Influenza Vaccine (#1) [facility] Start: 01-13-2024 End: 01-13-2024 Patient encounter procedure 01/13/2024 2:00 PM EDT Office Visit Neurology [address] [phone] Bogdan Roberts MD [address] [place] [address] Tremor [R25.1] Neurology Comment on above: Tremor [R25.1] Start: 01-11-2024 End: 01-11-2024 Patient encounter procedure 01/11/2024 11:00 AM EDT Office Visit URO/Gynecology [address] [place] [address] Wiley Benitez MD [address] [facility] [address] [place] [address] one month follow up URO/Gynecology Comment on above: one month follow up Start: 12-28-2023 End: 03-28-2024 Hemoglobin A1c in Blood HEMOGLOBIN A1C Lab Routine Elevated glucose Expected: 12/28/2023, Expires: 03/28/2024 [facility] Comment on above: Expected: 12/28/2023, Expires: Start: 12-28-2023 End: 03-28-2024 Lipid 1996 panel - Serum or Plasma LIPID PANEL BASIC Lab Routine Obesity, Class I, BMI 30-34.9 Expected: 12/28/2023, Expires: 03/28/2024 [facility] Comment on above: Expected: 12/28/2023, Expires: 4 Start: 12-28-2023 End: 12-28-2023 Patient encounter procedure 12/28/2023 7:20 AM EDT Office Visit [facility] [place] [address] [place], [place] [address] Jacqueline Valadez APRN.DIRECTOR OF FIELD COORDINATION [address] [place] [address] 6 mo f/u Family [facility] Comment on above: 6 mo f/u Start: 12-23-2023 ANNUAL PCP TEAM CHRONIC DISEASE VISIT ANNUAL PCP TEAM CHRONIC DISEASE VISIT [facility] Start: 12-23-2023 HIV SCREENING HIV SCREENING [facility] Comment on above: Postponed from 1976 (Declined at t his time) Start: 12-23-2023 HIV screening HIV Screening [facility] Comment on above: Postponed from 1976 (Declined at t his time) Start: 12-23-2023 End: 12-21-2024 XR Abdomen Supine and Upright XR ABDOMEN 1V SUPINE Radiology Routine Kidney stone Expected: 12/23/2023, Expires: 12/21/2024 [facility] Work Phone: Comment on above: Expected: 12/23/2023, Expires: Start: 12-23-2023 End: 12-23-2023 Patient encounter procedure 12/23/2023 9:00 AM EDT Office Visit [facility] [place] [address] [place] [address] Priyanka Smith MD [address] [place] [address] 6 mo f/u [facility] Comment on above: 6 mo f/u Start: 12-21-2023 End: 03-21-2024 Basic metabolic 2000 panel - Serum or Plasma BASIC METABOLIC PNL Lab Routine Low sodium levels Expected: 12/21/2023 (Approximate), Expires: 03/21/2024 [facility] Work Phone: Comment on above: Expected: 12/21/2023 (Approximate), Expi res: 03/21/2024 Start: 12-21-2023 End: 12-21-2023 Patient encounter procedure 12/21/2023 2:00 PM EDT Office Visit Urology [address] [phone] Mathew Yang Jr., MD [address] [place] [address] post-op and kub prior--ok'd by jay [facility] Comment on above: post-op and kub prior--ok'd by jay Start: 12-21-2023 End: 03-21-2024 Thyrotropin [Units/volume] in Serum or Plasma TSH BLD Lab Routine Hypothyroidism, unspecified type Expected: 12/21/2023 (Approximate), Expires: 03/21/2024 [facility] Work Phone: Comment on above: Expected: 12/21/2023 (Approximate), Expi res: 03/21/2024 Start: 12-01-2023 End: 12-01-2023 Patient encounter procedure 12/01/2023 1:30 PM EDT Office Visit REFERENCE TEST CLERK [facility] [address] [phone] Wiley Benitez MD [address] [phone] Cysto with Botox approved for 200units REFERENCE TEST CLERK [facility] Comment on above: Cysto with Botox approved for 200units Start: 11-29-2023 End: 11-29-2023 Patient encounter procedure 11/29/2023 8:15 AM EDT Office Visit OB/Gynecology [address] [place] [address] Charis Lopez APRN.CN [address] [place] [address] annual OB/Gynecology Comment on above: annual Start: 11-22-2023 End: 11-22-2023 Admission to same day surgery center 11/22/2023 8:00 AM EDT - 11/22/2023 9:30 AM EDT Surgery [facility] [address] [place] [address] Mathew Yang Jr., MD [address] [place] [address] EXTRACORPOREAL SHOCKWAVE LITHOTRIPSY UNILATERAL [facility] Comment on above: EXTRACORPOREAL SHOCKWAVE LITHOTRIPSY UNI LATERAL Start: 11-22-2023 End: 11-22-2023 Lithotripsy xtrcorp shock wave [facility] Start: 11-22-2023 Subsequent hospital visit by physician 11/22/2023 8:00 AM EDT Hospital Encounter [facility] [address] [place] [address] [place] [address] [place] [address] Renal calculus, right [N20.0] [facility] Comment on above: Renal calculus, right [N20.0] Start: 11-09-2023 End: 11-09-2023 Patient encounter procedure 11/09/2023 9:00 AM EDT Office Visit Urology [address] [address] Mathew Yang Jr., MD [address] [place] [address] 1y follow up Urology Comment on above: 1y follow up Start: 11-04-2023 End: 12-03-2023 XR ABDOMEN 1V SUPINE XR ABDOMEN 1V SUPINE Radiology Routine Kidney stone Expected: 11/04/2023, Expires: 12/03/2023 [facility] Work Phone: Comment on above: Expected: 11/04/2023, Expires: 4 Start: 11-04-2023 End: 11-04-2023 Patient encounter procedure 11/04/2023 8:00 AM EDT Appointment Radiology [address] [place] [address] kidney stones Radiology Comment on above: kidney stones Start: 11-03-2023 HEMOGLOBIN/HEMATOCRIT HEMOGLOBIN/HEMATOCRIT [facility] Start: 11-03-2023 SERUM CREATININE SERUM CREATININE [facility] Start: 11-03-2023 End: 11-03-2023 Patient encounter procedure 11/03/2023 1:30 PM EDT Office Visit REFERENCE TEST CL[facility] [address] [facility] [address] [place], [place] [phone] Wiley Benitez MD [address] [facility] [address] [place] [address] Cystoscopy with BOTOX REFERENCE TEST CLERK [facility] Comment on above: Cystoscopy with BOTOX Start: 11-02-2023 End: 11-02-2023 Patient encounter procedure 11/02/2023 8:20 AM EDT Appointment Cat Scan [address] [place], [place] [phone] Routine Cat Scan Comment on above: Routine Start: 11-01-2023 End: 10-15-2024 CT Chest WO contrast CT CHEST WO IVCON Radiology Routine Expected: 11/01/2023, Expires: 10/15/2024 [facility] Work Phone: Comment on above: Expected: 11/01/2023, Expires: 5 Start: 09-16-2023 End: 12-16-2023 CBC panel - Blood by Automated count COMPLETE BLOOD COUNT Lab Routine Expected: 09/16/2023, Expires: 12/16/2023 [facility] Comment on above: Expected: 09/16/2023, Expires: Start: 09-16-2023 End: 12-16-2023 Hepatic function 2000 panel - Serum or Plasma HEPATIC FUNCTION PNL Lab Routine Expected: 09/16/2023, Expires: 12/16/2023 [facility] Comment on above: Expected: 09/16/2023, Expires: Start: 09-16-2023 End: 09-16-2023 Patient encounter procedure 09/16/2023 1:15 PM EDT Office Visit Pulmonary Medicine [address] [place] [address] Karen Alcantara MD [address] [place] [address] 6 month follow up Pulmonary Medicine Comment on above: 6 month follow up Start: 08-24-2023 HPV TESTING HPV TESTING [facility] Start: 08-24-2023 PAP TESTING PAP TESTING [facility] Start: 08-21-2023 ANNUAL PCP TEAM CHRONIC DISEASE VISIT ANNUAL PCP TEAM CHRONIC DISEASE VISIT [facility] Start: 07-24-2023 Mammography [facility] Start: 07-24-2023 Screening for malignant neoplasm of breast Mammogram Screening [facility] Start: 06-24-2023 End: 08-24-2023 Basic metabolic 2000 panel - Serum or Plasma BASIC METABOLIC PNL Lab Routine Low sodium levels Expected: 06/24/2023 (Approximate), Expires: 08/24/2023 [facility] Work Phone: Comment on above: Expected: 06/24/2023 (Approximate), Expi res: 08/24/2023 Start: 06-24-2023 End: 08-24-2023 Thyrotropin [Units/volume] in Serum or Plasma TSH BLD Lab Routine Hypothyroidism, unspecified type Expected: 06/24/2023 (Approximate), Expires: 08/24/2023 [facility] Work Phone: Comment on above: Expected: 06/24/2023 (Approximate), Expi res: 08/24/2023 Start: 06-22-2023 ANNUAL PCP TEAM CHRONIC DISEASE VISIT ANNUAL PCP TEAM CHRONIC DISEASE VISIT [facility] Start: 05-17-2023 Behavioral Health Screening Behavioral Health Screening [facility] Start: 05-17-2023 Medicare Advantage Annual Wellness Visit Medicare Advantage Annual Wellness Visit [facility] Start: 04-21-2023 Covid-19 Vaccine () Covid-19 Vaccine () [facility] Start: 01-15-2023 Influenza vaccination [facility] Start: 12-20-2022 End: 02-19-2023 Thyrotropin [Units/volume] in Serum or Plasma TSH BLD Lab Routine Acquired hypothyroidism Expected: 12/20/2022, Expires: 02/19/2023 [facility] Work Phone: Comment on above: Expected: 12/20/2022, Expires: Start: 12-19-2022 Adult depression screening assessment DEPRESSION SCREENING [facility] Start: 12-19-2022 ANNUAL PCP TEAM CHRONIC DISEASE VISIT ANNUAL PCP TEAM CHRONIC DISEASE VISIT [facility] Start: 12-19-2022 HIV SCREENING HIV SCREENING [facility] Comment on above: Postponed from 1976 (Declined at t his time) Start: 10-16-2022 End: 05-17-2023 Ct thorax w/o contrast material CT CHEST WO IVCON Radiology Routine NSIP (nonspecific interstitial pneumonia) (HCC) Expected: 10/16/2022, Expires: 05/17/2023 [facility] Work Phone: Comment on above: Expected: 10/16/2022, Expires: Start: 06-26-2022 Mammography MAMMOGRAM [facility] Start: 06-21-2022 End: 08-21-2022 CBC W Auto Differential panel - Blood CBC + DIFF Lab Routine Hypothyroidism, unspecified type ILD (interstitial lung disease) (HCC) Medication monitoring encounter Expected: 06/21/2022 (Approximate), Expires: 08/21/2022 [facility] Work Phone: Comment on above: Expected: 06/21/2022 (Approximate), Expi res: 08/21/2022 Start: 06-21-2022 End: 08-21-2022 Comprehensive metabolic 2000 panel - Serum or Plasma COMP METABOLIC PANEL Lab Routine Hypothyroidism, unspecified type ILD (interstitial lung disease) (HCC) Medication monitoring encounter Expected: 06/21/2022 (Approximate), Expires: 08/21/2022 [facility] Work Phone: Comment on above: Expected: 06/21/2022 (Approximate), Expi res: 08/21/2022 Start: 06-21-2022 End: 08-21-2022 Thyrotropin [Units/volume] in Serum or Plasma TSH BLD Lab Routine Hypothyroidism, unspecified type Expected: 06/21/2022 (Approximate), Expires: 08/21/2022 [facility] Work Phone: Comment on above: Expected: 06/21/2022 (Approximate), Expi res: 08/21/2022 Start: 06-18-2022 ANNUAL PCP TEAM CHRONIC DISEASE VISIT ANNUAL PCP TEAM CHRONIC DISEASE VISIT [facility] Start: 05-17-2022 DEPRESSION ASSESSMENT DEPRESSION ASSESSMENT [facility] Start: 05-01-2022 COVID-19 VACCINE (5 - Inna risk series) COVID-19 VACCINE (5 - Inna risk series) [facility] Start: 04-23-2022 COVID-19 VACCINE (4 - Booster for Inna series) COVID-19 VACCINE (4 - Booster for Nina series) [facility] Start: 04-21-2022 PNEUMOCOCCAL (2 - PCV) PNEUMOCOCCAL (2 - PCV) [facility] Start: 04-08-2022 End: 06-08-2022 CBC panel - Blood by Automated count CBC Lab Routine NSIP (nonspecific interstitial pneumonia) (HCC) Expected: 04/08/2022, Expires: 06/08/2022 [facility] Work Phone: Comment on above: Expected: 04/08/2022, Expires: 3 Start: 04-08-2022 End: 06-08-2022 Comprehensive metabolic 2000 panel - Serum or Plasma COMP METABOLIC PANEL Lab Routine NSIP (nonspecific interstitial pneumonia) (HCC) Expected: 04/08/2022, Expires: 06/08/2022 [facility] Work Phone: Comment on above: Expected: 04/08/2022, Expires: 3 Start: 2022 End: 03-18-2023 Ct thorax w/o contrast material CT CHEST WO IVCON Radiology Routine Expected: 2022, Expires: 03/18/2023 [facility] Work Phone: Comment on above: Expected: 2022, Expires: 3 Start: 02-20-2022 End: 04-22-2022 25-hydroxyvitamin D3 [Mass/volume] in Serum or Plasma VITAMIN D 25 HYDROXY Lab Routine Steroid-induced osteopenia Expected: 02/20/2022, Expires: 04/22/2022 [facility] Work Phone: Comment on above: Expected: 02/20/2022, Expires: 2 Start: 02-16-2022 COVID-19 VACCINE (4 - Booster for Inna series) COVID-19 VACCINE (4 - Booster for Inna series) [facility] Start: 02-12-2022 End: 09-11-2022 Ct thorax w/o contrast material CT CHEST WO IVCON Radiology Routine Interstitial pulmonary disease (HCC) Expected: 02/12/2022, Expires: 09/11/2022 [facility] Work Phone: Comment on above: Expected: 02/12/2022, Expires: 3 Start: 01-15-2022 Influenza vaccination INFLUENZA (#1) [facility] Start: 12-16-2021 Adult depression screening assessment DEPRESSION SCREENING [facility] Start: 07-31-2021 SHINGRIX VACCINE (2 of 2) SHINGRIX VACCINE (2 of 2) [facility] Start: 06-02-2021 COVID-19 VACCINE (3 - Booster for Inna series) COVID-19 VACCINE (3 - Booster for Inna series) [facility] Start: 05-17-2021 DEPRESSION ASSESSMENT DEPRESSION ASSESSMENT [facility] Start: 04-29-2020 [facility]rine microalbumin profile [facility] Start: 08-24-2019 Screening for malignant neoplasm of cervix Cervical Cancer Screening [facility] Start: 2018 RSV Immunization aged 60 or older (1 - 1-dose 60+ series) RSV Immunization aged 60 or older (1 - 1-dose 60+ series) [facility] Start: 2018 RSV Immunization for Adults (1 - Risk 60-74 years 1-dose series) RSV Immunization for Adults (1 - Risk 60-74 years 1-dose series) [facility] Start: 2018 RSV Vaccine (1 - 1-dose 60+ series) RSV Vaccine (1 - 1-dose 60+ series) [facility] Start: 2018 RSV Vaccine (1 - Risk 60-74 years 1-dose series) RSV Vaccine (1 - Risk 60-74 years 1-dose series) [facility] Start: 08-28-2015 FECAL OCCULT BLOOD FECAL OCCULT BLOOD [facility] Start: 08-28-2015 Screening for malignant neoplasm of colon Fecal Occult Blood [facility] Start: 2003 COLOGUARD (FIT-DNA) COLOGUARD (FIT-DNA) [facility] Start: [address] COLONOGRAPHY [facility] Start: 2003 Screening for malignant neoplasm of colon [facility] Start: 2003 SIGMOIDOSCOPY SIGMOIDOSCOPY [facility] Start: 1998 Screening for malignant neoplasm of breast Mammogram [facility] Start: 1988 Screening for malignant neoplasm of cervix [facility] Start: 1979 Screening for malignant neoplasm of cervix Pap Smear [facility] Start: 1976 Anxiety Screening Anxiety Screening [facility] Start: 1976 Depression Screening Depression Screening [facility] Start: 1976 Hepatitis C screening Hepatitis C Screening [facility] Start: 1976 HIV SCREENING HIV SCREENING [facility] Start: 1970 Depression Screening Depression Screening [facility] Start: 1959 MMR Vaccines (1 of 1 - Standard series) MMR Vaccines (1 of 1 - Standard series) [facility] Start: 1958 Annual wellness visit Medicare Initial Physical (IPPE) [facility] Start: 1960 Screening for malignant neoplasm of colon [facility] Bacteria identified in Blood by Culture [facility] Work Phone: Bacteria identified in Urine by Culture URINE CULTURE Microbiology Routine Urinary urgency 11/05/2021 9:40 AM EDT [facility] Work Phone: Bacteria identified in Urine by Culture URINE CULTURE Microbiology Routine Urinary frequency Ordered: 04/02/2022 [facility] Work Phone: Comment on above: Ordered: 04/02/2022 Bacteria identified in Urine by Culture URINE CULTURE Microbiology Routine Post-operative state Urinary frequency 02/25/2023 10:54 AM EDT [facility] Work Phone (unformatted): [phone] Bacteria identified in Urine by Culture URINE CULTURE Microbiology Routine Urinary frequency Dysuria 09/02/2023 9:01 AM EDT [facility] Work Phone (unformatted): [phone] Bacteria identified in Urine by Culture URINE CULTURE Microbiology Routine Urinary tract infection with hematuria, site unspecified 04/10/2024 4:15 PM [facility] Work Phone: Bacteria identified in Urine by Culture BACTERIAL CULTURE, URINE Microbiology Routine Gross hematuria 08/09/2024 2:52 PM EDT [facility] BRAD/TRICHOMONAS NAAT BRAD /TRICHOMONAS NAAT Lab Routine Vulvar burning 10/07/2023 9:23 AM T [facility] Work Phone (unformatted): [phone] End: 08-12-2022 CBC W Auto Differential panel - Blood CBC + DIFF Lab Routine History of immunosuppressive therapy Every 6 months for 4 Occurrences starting 08/12/2021 until 08/12/2022 [facility] Work Phone: Comment on above: Every 6 months for 4 Occurrences startin g 08/12/2021 until 08/12/2022 CT Chest WO contrast CT CHEST WO IVCON Radiology Routine 11/02/2023 8:58 AM EDT [facility] Work Phone: End: 10-11-2025 CT Head WO contrast CT BRAIN WO IVCON Radiology STAT Injury of head, initial encounter 1 Occurrences starting 09/11/2024 until 10/11/2025 [facility] Work Phone: Comment on above: 1 Occurrences starting 09/11/2024 until 10/11/2025 DBT Breast - bilater al screening CHYNA SCREENING W JENN Radiology Routine Encounter for screening mammogram for malignant neoplasm of breast 08/18/2023 9:38 AM EDT [facility] Work Phone: End: 12-28-2024 DBT Breast - bilateral screening CHYNA SCREENING W JENN Radiology Routine Encounter for screening mammogram for breast cancer 1 Occurrences starting 11/29/2023 until 12/28/2024 [facility] Work Phone: Comment on above: 1 Occurrences starting 11/29/2023 until 12/28/2024 DBT Breast - bilater al screening CHYNA SCREENING W JENN Radiology Routine Encounter for screening mammogram for breast cancer 08/21/2024 9:09 AM EDT [facility] Work Phone: End: 01-05-2026 DBT Breast - bilateral screening CHYNA SCREENING W JENN Radiology Routine Encounter for screening mammogram for breast cancer 1 Occurrences starting 12/06/2024 until 01/05/2026 [facility] Work Phone: Comment on above: 1 Occurrences starting 12/06/2024 until 01/05/2026 End: 03-18-2023 Dxa bone density study 1/> sites axial skel DXA-AXIAL SKELETON Radiology 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 1 Occurrences starting 02/16/2022 until 03/18/2023 [facility] Work Phone: Comment on above: 1 Occurrences starting 02/16/2022 until 03/18/2023 Hzv zoster vacc fernandez mbinant adjuvanted im njx ZOSTER VACC RECOMBINANT,IM Immunization/Injection Routine Need for vaccination Ordered: 11/18/2021 [facility] Work Phone: Comment on above: Ordered: 11/18/2021 End: 09-10-2023 Kidney img morphology vascular flow 1 w/rx NM RENAL FLOW/FXN W PHARM Radiology Routine Hydronephrosis with ureteropelvic junction (UPJ) obstruction 1 Occurrences starting 08/11/2022 until 09/10/2023 [facility] Work Phone: Comment on above: 1 Occurrences starting 08/11/2022 until 09/10/2023 End: 07-20-2025 LUNG DIFFUSION CAPACITY (DLCO) LUNG DIFFUSION CAPACITY (DLCO) PFT Routine NSIP (nonspecific interstitial pneumonitis) (HCC) 1 Occurrences starting 06/20/2024 until 07/20/2025 [facility] Comment on above: 1 Occurrences starting 06/20/2024 until 07/20/2025 LUNG DIFFUSION CAPAC ITY (DLCO) LUNG DIFFUSION CAPACITY (DLCO) PFT Routine NSIP (nonspecific interstitial pneumonitis) [facility] 10/26/2024 8:51 AM EDT [facility] Work Phone: End: 07-20-2025 LUNG VOLUMES LUNG VOLUMES PFT Routine NSIP (nonspecific interstitial pneumonitis) ([facility]) 1 Occurrences starting 06/20/2024 until 07/20/2025 [facility] Comment on above: 1 Occurrences starting 06/20/2024 until 07/20/2025 LUNG VOLUMES LUNG VOLUMES PFT Routine NSIP (nonspecific interstitial pneumonitis) ([facility]) 10/26/2024 8:51 AM EDT [facility] Work Phone: End: 07-21-2024 CHYNA SCREENING CHYNA SCREENING Radiology Routine Encounter for screening mammogram for malignant neoplasm of breast 1 Occurrences starting 06/22/2023 until 07/21/2024 [facility] Work Phone: Comment on above: 1 Occurrences starting 06/22/2023 until 07/21/2024 End: 12-26-2022 CHYNA SCREENING W JENN CHYNA SCREENING W JENN Radiology Routine Encounter for screening mammogram for breast cancer 1 Occurrences starting 11/26/2021 until 12/26/2022 [facility] Work Phone: Comment on above: 1 Occurrences starting 11/26/2021 until 12/26/2022 Punch biopsy skin ea sep/additional lesion PUNCH BIOPSY SKIN EA SEP/ADDITIONAL LESION Procedures Routine Parkinsonism, unspecified Parkinsonism type (HCC) Ordered: 03/17/2024 [facility] Comment on above: Ordered: 03/17/2024 Punch biopsy skin si ngle lesion PUNCH BIOPSY SKIN SINGLE LESION Procedures Routine Parkinsonism, unspecified Parkinsonism type (HCC) Ordered: 03/17/2024 [facility] Work Phone: Comment on above: Ordered: 03/17/2024 SPIROMETRY BASELINE ONLY SPIROME TRY BASELINE ONLY PFT Routine NSIP (nonspecific interstitial pneumonia) ([facility]) 08/12/2021 1:37 PM EDT [facility] Work Phone: End: 07-20-2025 SPIROMETRY BASELINE ONLY SPIROMETRY BASELINE ONLY PFT Routine NSIP (nonspecific interstitial pneumonitis) ([facility]) 1 Occurrences starting 06/20/2024 until 07/20/2025 [facility] Work Phone: Comment on above: 1 Occurrences starting 06/20/2024 until 07/20/2025 SPIROMETRY BASELINE ONLY SPIROME TRY BASELINE ONLY PFT Routine NSIP (nonspecific interstitial pneumonitis) ([facility]) 10/26/2024 8:51 AM EDT [facility] Work Phone: URODYNAMICS WHI URODYNAMICS WHI Procedures Routine Urinary urgency Urinary frequency Overactive bladder Ordered: 03/16/2022 [facility] Work Phone: Comment on above: Ordered: 03/16/2022 US Kidney - bilatera l and Urinary bladder US KIDNEY/BLADDER Radiology Routine Gross hematuria Nephrolithiasis 08/14/2024 1:58 PM EDT [facility] Work Phone: End: 12-27-2022 Us transvaginal US FEMALE PELVIS TRANSVAG Radiology Routine Cystocele, midline Urinary urgency Urinary frequency 1 Occurrences starting 11/26/2021 until 12/27/2022 [facility] Work Phone: Comment on above: 1 Occurrences starting 11/26/2021 until 12/27/2022 End: 09-10-2023 XR ABDOMEN 1V SUPINE XR ABDOMEN 1V SUPINE Radiology Routine Kidney stone 1 Occurrences starting 08/11/2022 until 09/10/2023 [facility] Work Phone: Comment on above: 1 Occurrences starting 08/11/2022 until 09/10/2023 XR ABDOMEN 1V SUPINE XR ABDOMEN 1V SUPINE Radiology Routine Kidney stone 08/11/2022 3:32 PM EDT [facility] Work Phone: XR Abdomen Single view [facility] XR Abdomen Supine and Upright XR ABDOMEN 1V SUPINE Radiology Routine Kidney stone 11/04/2023 8:02 AM EDT [facility] Work Phone: XR Abdomen Supine and Upright XR ABDOMEN 1V SUPINE Radiology Routine Kidney stone 11/29/2023 8:08 AM EDT [facility] Work Phone: End: 03-31-2025 XR Chest PA and Lateral XR CHEST 2V FRONTAL/LAT Radiology STAT Rib pain 1 Occurrences starting 03/01/2024 until 03/31/2025 [facility] Work Phone: Comment on above: 1 Occurrences starting 03/01/2024 until 03/31/2025 End: 07-14-2025 XR Hand - right PA and Lateral and Oblique XR HAND GENERAL 3V PA/LAT/OBL RIGHT Radiology Routine Right hand pain 1 Occurrences starting 06/14/2024 until 07/14/2025 [facility] Work Phone: Comment on above: 1 Occurrences starting 06/14/2024 until 07/14/2025 XR Hand - right PA a nd Lateral and Oblique XR HAND GENERAL 3V PA/LAT/OBL RIGHT Radiology Routine Right hand pain 06/26/2024 8:42 AM EST [facility] Work Phone: End: 06-23-2025 XR Knee - bilateral 4 Views XR KNEE GENERAL 4V AP BOTH/PA BOTH/LAT/MERC BILATERAL Radiology Routine Acute pain of both knees 1 Occurrences starting 05/24/2024 until 06/23/2025 [facility] Work Phone: Comment on above: 1 Occurrences starting 05/24/2024 until 06/23/2025 XR Knee - bilateral 4 Views XR K NEE GENERAL 4V AP BOTH/PA BOTH/LAT/MERC BILATERAL Radiology Routine Acute pain of both knees 05/24/2024 10:23 AM EST [facility] Immunizations Immunization Date Immunization Notes Care Provider Nick daniel 03-16-2024 COVID-19 vaccine, ag e 12+ yr (PFIZER-BIONTECH COMIRNATY) Priyanka Smith MD Work Phone: [facility] 03-16-2024 influenza, high dose seasonal, preservative-free Priyanka Smith MD Work Phone: [facility] 03-16-2024 influenza virus vaccine, unspecified formulation German Grubbs DUST BOX TENDER.DIRECTOR OF FIELD COORDINATION Work Phone: [facility] 03-01-2023 tetanus toxoid, reduced diphtheria toxoid, and acellular pertussis vaccine, adsorbed Mi Nurse Work Phone: [facility] Work Phone: 02-24-2023 COVID-19 vaccine, ag e 12+ yr, season (PFIZER-BIONTECH) Immunization [place] Work Phone: [facility] Work Phone: 02-24-2023 influenza, injectabl e, quadrivalent, contains preservative Immunization [place] Work Phone: [facility] Work Phone: 02-24-2023 influenza virus vaccine, unspecified formulation Mathew Yang Jr., MD Work Phone: [facility] 06-22-2022 pneumococcal Conjugate, unspecified formulation Priyanka Smith MD Work Phone: [facility] Work Phone: 06-22-2022 pneumococcal (PCV20) vaccine, 20 valent (PREVNAR 20) Priyanka Smith MD Work Phone: [facility] 03-06-2022 COVID-19 booster vaccine, age 12+ yr, bivalent (PFIZER-BIONTECH) Tariq Brooks DUST BOX TENDER.DIRECTOR OF FIELD COORDINATION Work Phone (unformatted): [phone] [facility] Work Phone: 03-06-2022 influenza, injectabl e, quadrivalent, contains preservative Tariq Cecilia VELAZQUEZDIRECTOR OF FIELD COORDINATION Work Phone (unformatted): [phone] [facility] Work Phone: 03-06-2022 influenza virus vaccine, unspecified formulation Karen Alcantara MD Work Phone: [facility] 12-22-2021 COVID-19 vaccine, ag e 12+ yr (PFIZER-BIONTECH - [facility]) Pr Nurse Work Phone: [facility] Work Phone: 12-04-2021 zoster vaccine recombinant Gerri Cruz PA-C Work Phone: [facility] Work Phone: 06-05-2021 zoster vaccine recombinant Priyanka Smith MD Work Phone: [facility] Work Phone: 04-21-2021 pneumococcal polysaccharide vaccine, 23 valent Priyanka Smith MD Work Phone: [facility] Work Phone: 03-08-2021 influenza, injectabl e, quadrivalent, contains preservative Priyanka Smith MD Work Phone: [facility] Work Phone: 07-22-2020 COVID-19 vaccine (INNA) Priyanka Smith MD Work Phone: [facility] 03-04-2020 influenza, injectabl e, quadrivalent, contains preservative Priyanka Smith MD Work Phone: [facility] 02-28-2019 influenza, injectabl e, quadrivalent, contains preservative Priyanka Smith MD Work Phone: [facility] 03-28-2018 influenza, injectabl e, quadrivalent, preservative free Priyanka Smith MD Work Phone: [facility] 03-08-2018 influenza, injectabl e, quadrivalent, preservative free Dr. Priyanka Smith MD Work Phone: [facility] 03-08-2018 influenza, seasonal, injectable, preservative free Priyanka Smith MD Work Phone: [facility] 04-19-2017 influenza, injectabl e, quadrivalent, contains preservative Priyanka Smith MD Work Phone: [facility] 04-17-2014 influenza, seasonal, injectable Priyanka Smith MD Work Phone: [facility] 05-26-2013 influenza virus vaccine, unspecified formulation Priyanka Smith MD Work Phone: [facility] 02-11-2012 influenza virus vaccine, unspecified formulation Priyanka Smith MD Work Phone: [facility] 04-29-2010 diphtheria, tetanus toxoids and acellular pertussis vaccine Priyanka Smith MD Work Phone: [facility] 08-05-2009 tetanus toxoid, reduced diphtheria toxoid, and acellular pertussis vaccine, adsorbed Priyanka Smith MD Work Phone: [facility] 08-05-2009 tuberculin skin test ; purified protein derivative solution, intradermal Wiley Benitez MD Work Phone: [facility] NEGATED: Highlighted row has not occurred!03-05-2024 Seasonal trivalent influenza vaccine, adjuvanted, preservative free Cecilia Barney PA-C Work Phone: [facility] Comment on above: Deferred: Patient Re fused Payers Date Payer Category Payer Self-pay 2023 Medicare [id number] 2023 Medicare (Managed Care) MMO MEDADVANTAGE HMO [id number] 2023 Medicare HMO MMO MEDICARE ADV ANTAGE [id number] 2023 Unknown [id number] 2022 Medicaid [id number] 2022 Medicaid [id number] 2020 Medicaid [employer] [id number] 2020-Present [phone] [address] [place] [address] Medicaid [id number] 2020 Medicaid [id number] Medicare [id number] Unknown [id number] Unknown [id number] Unknown [id number] Unknown [id number] Unknown [id number] Unknown [id number] Unknown [id number] Unknown [id number] Unknown [id number] Unknown [id number] Unknown [id number] Unknown [id number] Unknown [id number] Social History Date Type Detail Facility Start: 01-04-2020 End: 11-09-2023 Tobacco smoking status NHIS Never smoked tobacco [facility] Start: 06-18-2021 End: 01-30-2025 Alcohol intake Current drinker of alcohol (finding) [facility] Start: 01-04-2020 End: 06-02-2020 History SDOH Alcohol Frequency 2 [facility] Start: 01-04-2020 End: 06-02-2020 History SDOH Alcohol Std Drinks 1 [facility] Start: 03-01-2020 History SDOH Social Connections Phone 4 [facility] Start: 09-03-2019 History SDOH Social Connections Living 5 [facility] Start: 09-03-2019 History SDOH Physica l Activity DPW 0 [facility] Start: 09-03-2019 Education 17 [facility] Start: 01-04-2020 End: 02-16-2022 Tobacco Comment No one in household smokes. Smoker in childhood home. [facility] Start: 1960 Sex Assigned At Not on file [facility] Start: 05-27-2020 End: 04-17-2022 Exposure to SARS-CoV-2 (event) Not sure [facility] Start: 01-04-2020 End: 11-09-2023 Tobacco use and exposure Smokeless tobacco non-user [facility] Work Phone: Start: 02-13-2022 End: 02-23-2022 Exposure to SARS-CoV-2 (event) Unable to assess [facility] Start: 11-16-2022 End: 11-29-2024 History of Social function [facility] Work Phone: Start: 11-16-2022 End: 11-29-2024 Tobacco use panel [facility] Work Phone: Start: 04-17-2012 Adult Depression Screening Assessment 0 [facility] Work Phone: How often to you hav e a drink containing alcohol? Monthly or less [facility] Work Phone: How many standard drinks containing alcohol do you have on a typical day? 1 or 2 [facility] Work Phone: How often do you hav e 6 or more drinks on 1 occasion? Never [facility] Work Phone: How hard is it for y ou to pay for the very basics like food, housing, medical care, and heating Very hard [facility] Work Phone: Do you feel stress - tense, restless, nervous, or anxious, or unable to sleep at night because your mind is troubled all the time - these days [OSQ] Not at all [facility] (I/We) worried reagan er (my/our) food would run out before (I/we) got money to buy more. Never true [facility] Work Phone: In the past 12 month s, was there a time when you were not able to pay the mortgage or rent on time? No [facility] Start: 03-04-2024 End: 03-23-2024 Alcoholic beverage intake Lifetime non-drinker (finding) [facility] Start: 1960 Sex assigned at Female [facility] Start: 03-04-2024 Gender identity Identifies as female gender (finding) [facility] Start: 03-04-2024 Sexual orientation Heterosexual (cirilo naranjo) [facility] Start: 12-15-2021 Sex Female (finding) [facility] Start: 06-08-2018 Alcohol Alcohol [facility] Start: 06-08-2018 Lives Lives [facility] Start: 06-11-2018 Tobacco Use Tobacco Use [facility] Are you now , , , , never or living with a partner? [facility] NEGATED: Highlighted rowStart: MARYF History of tobacco use Passive smoker [facility] Medical Equipment Procedure Code Equipment Code Equipment Original Text Equipment Identifier Dates Lead Intrstim Mr i 28cm - [id number] Start: 01-28-2023 Interstim X Rech arge Free Neurostimulator - [id number] Start: 01-28-2023 Stent Uret 6fr 2 4cm Wo Gw - [id number] Start: 03-05-2024 Stent Uret 6fr 2 4cm Wo Gw - [id number] Start: 03-05-2024 Stent Uret 6fr 2 4cm Wo Gw - [id number] Start: 03-23-2024 PRAVEEN GOLDMAN LG [employer] FDA Sta rt: 12-23-2017 SSUIS[employer]ge [employer], IncJONO Expect [employer] FDA St art: 12-23-2017 RELOAD,BLUE 60 FDA Start: 12-23-2017 RELOAD,GOLD 60 FDA Start: 12-23-2017 ROBERTO,INTRA CD [id number] ETHICON FDA Start: 12-23-2017 SUSIMAVISJONO NEAL [employer] FDA Sta rt: 12-23-2017 SUSITuition.ioJOSELYN Expect Labs FDA St art: 12-23-2017 RELOAD,BLUE 60 FDA Start: 12-23-2017 RELOAD,GOLD 60 FDA Start: 12-23-2017 ROBERTO,INTRA CD H29A ETHICON FDA Start: 12-23-2017 SUSISunverge Energy, IncJONO [employer] FDA Sta rt: 12-23-2017 SUSISunverge Energy, IncLUIZJOSELYN Expect [facility] FDA St art: 12-23-2017 RELOAD,BLUE 60 FDA Start: 12-23-2017 RELOAD,GOLD 60 FDA Start: 12-23-2017 STAPLER,INTRA CD H29A ETHICON FDA Start: 12-23-2017 SUSIS[employer]JONO [employer] FDA Sta rt: 12-23-2017 SUSITuition.[email or web address] Expect [facility] FDA St art: 12-23-2017 RELOAD,BLUE 60 FDA [...] 07/10/19 25 9:41 AM Mariam Roldan LPN [facility] 03-26-2020 Are you deaf, or do you have serious difficulty hearing No 03/26/2020 10:37 AM Mariaelena Mims RN No [facility] 03-26-2020 Are you blind, or do you have serious difficulty seeing, even when wearing glasses No 03/26/2020 10:37 AM Mariaelena Mims RN No [facility] 03-26-2020 Do you have serious difficulty walking or climbing stairs No 03/26/2020 10:37 AM Mariaelena Mims RN No [facility] 03-26-2020 Do you have difficul ty dressing or bathing No 03/26/2020 10:37 AM Mariaelena Mims RN No [facility] 03-26-2020 Because of a physica l, mental, or emotional condition, do you have difficulty doing errands alone such as visiting a physician's office or shopping No 03/26/2020 10:37 AM Mariaelena Mims RN No [facility] Mental Status Date Assessment Result Facility 12-22-2024 Cognitive function Voice/Name [facility] Work Phone: 03-26-2020 Because of a physica l, mental, or emotional condition, do you have serious difficulty concentrating, remembering, or making decisions No 03/26/2020 10:37 AM Mariaelena Mims RN No [facility] Clinical Notes 07-17-2018 to 01-30-2025 Jasmyne Day MD - 01/30/2025 9:59 AM Cara Pierre RT(R) - 01/29/2025 9:20 AM Reshma Strange DO - 01/26/2025 9:12 AM EDTInstructions Note Date & Type Note Facility 01-30-2025 History of Present illness Narrative 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 Patient presents with: Hospital F/U: [facility]. [facility]. 01/22-01/26. Severe vaginal bleeding. Recording using Verifico software for draft documentation of the visit was discussed with the patient/authorized help desk representative; all questions welcomed and answered. Patient/authorized help desk representative agreed to proceed HPI Eren Merchant is a 64 year old female who presents here today for Hospital Discharge Follow up. Patient admitted to [facility] from 01/22-01/26 for heavy vaginal bleeding and anemia with following hospital course: Hospital Course: Eren is a 64 y.o. female with a past medical history of parkinson's, thyroid cancer s/p surgical intervention, and overactive bladder with recurrent UTI. Patient developed heavy vaginal bleeding Saturday 01/20, she initially presented to [facility], was then transferred to [facility] for OB-Chief Gauger consult. Hgb baseline ~12, down to 8. She received 1.5 units of PRBC, second unit stopped for fever. CT A/P showed thickened bladder wall and bilateral hydronephrosis. Bleeding stopped on own this morning, before Megace was given. Chief Gauger planning for hysteroscopy D&C inpatient per patient request. Patient developed fever and dysuria, urology following already. UA positive for UTI, placed on Zosyn prior. Patient denies any flank pain, frequency, foul smelling urine, or pain with urination. Hospital medicine was consulted for further management of UTI. Urine culture growing E Coli, Vanc stopped. On 01/24/2025, underwent hysteroscopy which found cervical stenosis, biopsy obtained but D&C was not performed. Chief Gauger does not think uterus was cause of bleeding. Cystoscopy was also performed with bilateral retrograde pyelograms completed by Urology. Dowd also removed 01/24. Discussed Flomax use with Urology, do not recommend Flomax at this time. Anemia workup showing VALDEZ, ferritin elevated in acute infection, prescribed oral Iron. DC home on Augmentin for 3 more days. Hospitalization Follow-Up: - Hospitalized from the to the at [facility] for heavy vaginal bleeding and anemia. - Hemoglobin dropped from 12 to 8; Eren received 1.5 units of PRBCs, with the second unit stopped due to fever. - CT abdomen/pelvis showed gallbladder wall thickening and fluid buildup in both kidneys. - Bleeding stopped spontaneously before medication administration. - REFERENCE TEST CLERK consult performed hysteroscopy with biopsy; cervical opening was narrowed, requiring incision for biopsy. - Cystoscopy performed; Dowd catheter removed on the . - Urine positive for UTI; treated with IV antibiotics, then switched to Augmentin, completed on Wednesday. - No further bleeding since discharge. - Eren denies dysuria, hematuria, urinary frequency, fevers, chills, nausea, emesis, or abdominal/flank pain. - Reports chronic back pain with prolonged standing, unchanged. - Adequate oral intake, consuming >2L of fluids daily. - Independent in ADLs; requires assistance with stairs. - Taking iron supplement daily, started yesterday. - No new cough or wheezing since discharge; chronic cough present. Past medical history, appointments, medications, allergies reviewed. 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 GERD (gastroesophageal reflux disease) 10/01/2017 Hives Intramural leiomyoma of uterus Malnutrition of moderate degree ([facility] 06/15/2018 Nephrolithiasis NSIP (nonspecific interstitial pneumonia) ([facility]) Obesity, Class I, BMI 30-34.9 E66.9 09/03/2017 Osteopenia Overactive bladder Parkinson disease ([facility]) Primary osteoarthritis of first carpometacarpal joint of right hand 08/05/2017 Added automatically from request for surgery [id number] Rectal bleed 09/05/2014 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, Masaoka [...] UNI/BI Tubal ligation LX PARTIAL COLECTOMY 12/23/2017 [facility] lap lysis of adhesions, left [...] on File Prior to Visit Medication Sig ferrous sulfate 325 mg (65 mg iron) tablet Take 325 mg by mouth once daily. fludrocortisone (FLORINEF) 0.1 mg tablet Take 2 tablets in the morning and one table the evening. amitriptyline (ELAVIL) 100 mg tablet Take 1 [...] Negative for lesions, rash, and itching EXAM: BP 124/78 Pulse 76 Ht 165.1 cm (5' 5) Wt 74.1 kg (163 lb 6.4 oz) LMP 01/07/2011 SpO2 96% BMI 27.19 kg/m General Appearance: Well appearing, alert, in [...] on 12/27/2024 Influenza Vaccine(1) due on 01/15/2025 Mammogram Screening due on 08/21/2025 Serum Creatinine due on 01/26/2026 Hemoglobin/Hematocrit due on 01/26/2026 Annual PCP Team Chronic Disease Visit due on 01/30/2026 Colorectal Cancer Screening due on 12/23/2027 Diabetes Screening due on 01/27/2028 Lipid Screening due on 01/30/2029 DTaP,Tdap,Td Vaccine(4 - Td or Tdap) due on 03/01/2033 Bone Density Screening Completed Medicare Advantage Annual Wellness Visit Completed Hepatitis C Screening Completed Shingrix Vaccine Completed Pneumococcal Vaccine: 50+ Completed Data reviewed [facility] records from 01/22-01/26 1. Vaginal bleeding (N93.9) 2. Acute cystitis with hematuria (N30.01) 3. Iron deficiency anemia, unspecified iron deficiency anemia type (D50.9) - Recent hospitalization (October 22) for heavy vaginal bleeding, anemia (Hgb drop from 12 to 8), and hematuria; received 1.5 units PRBCs (second unit stopped due to fever). - Hysteroscopy with attempted D&C aborted due to cervical stenosis; biopsy performed, no malignancy or active endometrial pathology identified. - UTI treated with IV antibiotics, then Augmentin (completed); no current urinary symptoms or bleeding. - Hemoglobin improved to 10.2 while inpatient; iron supplementation started. - Continue iron supplementation daily. - Educated on signs of recurrent UTI or bleeding (dysuria, hematuria, increased frequency, urgency, vaginal bleeding, lightheadedness, SOB); instructed to call immediately if symptoms recur. - Order repeat CBC, iron studies, and renal function in 1 month. - Follow-up with urology/gynecology on November 08. 4. Encounter for follow-up examination after completed treatment for conditions other than malignant neoplasm (Z09) - Reviewed hospital course and current status; no new issues identified. - Continue current medications as prescribed. - Next routine visit in July unless new concerns arise. Jasmyne Day MD [1] Social History Tobacco Use Smoking status: Never Passive exposure: Never Smokeless tobacco: Never Tobacco comments: No one in household smokes. Smoker in childhood home. Vaping Use Vaping status: Never Used Substance Use Topics Alcohol use: Yes Comment: Rarely Drug use: No documented in this encounter [facility] 01-29-2025 History of Present illness Narrative Radiology Service Progress Note PATIENT NAME: Eren Merchant DATE OF SERVICE: January 29, 2025 TIME: 3:29 PM PATIENT IDENTITY VERIFICATION COMPLETED USING TWO (2) IDENTIFIERS: Name and Date of confirmed by patient verbally. FALL SCREENING: Has the patient had 2 falls in the last year or 1 fall with injury or currently using an Ambulatory Assistive Device (Walker, Cane, Wheelchair, Crutches, etc.)? No PATIENT GENDER DATA: Assigned female at . status: : No status: NO. PATIENT RELEVANT IMPLANT DATA REVIEWED: Yes PATIENT PRESENTS WITH AN IMPLANTABLE OR ATTACHED STERILE PREPARATION TECHNICIAN: No RADIOLOGY DEPARTMENT: CT; Exam(s) Completed: Chest. Anesthesia: No PERIPHERAL IV DATA: Not applicable SIGNED BY: RT Jonathon(R) January 29, 2025 3:29 PM documented in this encounter [facility] 01-26-2025 Note Hospitalist Discharg e Summary - [facility] - [employer] ([facility]) Eren Merchant : 1960 Admit date: 01/22/2025 Discharge date: 01/26/2025 Admitting Physician: Jennie Chang DO Primary Care Physician: Priyanka Smith Recommended Follow-up: Pepito Steve MD [address] [facility] [id number] Follow up Disposition: Patient discharged in stable condition. Greater than 31 minutes spent discharging the patient and coming up with patient discharge plan. Follow up with Priyanka Smith in 1-2 weeks as appropriate. Hospital Course: Eren is a 64 y.o. female with a past medical history of parkinson's, thyroid cancer s/p surgical intervention, and overactive bladder with recurrent UTI. Patient developed heavy vaginal bleeding Saturday 01/20, she initially presented to [facility], was then transferred to [facility] for OB-Chief Gauger consult. Hgb baseline ~12, down to 8. She received 1.5 units of PRBC, second unit stopped for fever. CT A/P showed thickened bladder wall and bilateral hydronephrosis. Bleeding stopped on own this morning, before Megace was given. Chief Gauger planning for hysteroscopy D&C inpatient per patient request. Patient developed fever and dysuria, urology following already. UA positive for UTI, placed on Zosyn prior. Patient denies any flank pain, frequency, foul smelling urine, or pain with urination. Hospital medicine was consulted for further management of UTI. Urine culture growing E Coli, Vanc stopped. On 01/24/2025, underwent hysteroscopy which found cervical stenosis, biopsy obtained but D&C was not performed. Chief Gauger does not think uterus was cause of bleeding. Cystoscopy was also performed with bilateral retrograde pyelograms completed by Urology. Dowd also removed 01/24. Discussed Flomax use with Urology, do not recommend Flomax at this time. Anemia workup showing VALDEZ, ferritin elevated in acute infection, prescribed oral Iron. DC home on Augmentin for 3 more days. Discharge Diagnoses: Acute, acute on chronic, unstable/uncontrolled chronic problems/diagnoses: Urinary tract infection Severe sepsis 2/2 UTI Vaginal bleeding, suspect 2/2 recently passed kidney stone Bilateral hydronephrosis Hyponatremia Hypokalemia Iron deficiency anemia Metabolic acidosis CKD 3 (baseline Cr ~ 1.6 - 1.7) Stable chronic problems affecting care, new non-acute diagnoses: Parkinson's Constipation Esophageal dysmotility Interstitial lung disease and Nonspecific Interstitial Pneumonia (NSIP) on Cellcept Adult diet Regular Vitals: BP 127/78 (BP Location: Left arm, Patient Position: Lying) Pulse 82 Temp 36.4 ?C (97.6 ?F) (Temporal) Resp 16 Ht 5' 5.5 (1.664 m) Wt 169 lb (76.7 kg) LMP (LMP Unknown) SpO2 100% BMI 27.70 kg/m? Pulse Ox: SpO2 Av.5 % Min: 99 % Max: 100 % Supplemental O2: O2 Flow Rate (L/min): 6 L/min GENERAL: appears comfortable and stated age CARDIOVASCULAR: regular RESPIRATORY: clear without rhonchi ABDOMEN: non distended EXTREMITIES: moving appropriately Recent Labs 01/24/2551901/25/2531901/26/25 0457 WBC 10.2 7.1 9.5 HGB 8.9* 10.2* 9.2* PLT 245 353 369 Recent Labs 01/24/25 0501/25/2531901/26/25 0457 NA 135* 138 136 K 3.5 4.3 4.0 CL 109* 110* 111* CO2 21* 20* 18* BUN 19 26* 30* CREATININE 1.37* 1.46* 1.63* GLUCOSE 94 131* 90 No results for input(s): AST, ALT, BILITOT, ALKPHOS in the last 72 hours. No lab exists for component: ALB No results found for: TRIG, HDL, LDLCALC, CHOL No results found for: PHART, PO2ART, [id number] No results for input(s): INR in the last 72 hours. No results for input(s): DDIMER in the last 72 hours. No results found for: HGBA1C No results found for: TSH Urine Culture: Results for orders placed or performed during the hospital encounter of 01/22/25 Urine culture Collection Time: 01/22/25 8:27 PM Specimen: Urine, Clean Catch Result Value Ref Range Urine Culture >100,000 CFU/mL Escherichia coli (A) Urine Culture >100,000 CFU/mL Streptococcus agalactiae (Group B) (A) Susceptibility Escherichia coli - BROTH MICRODILUTION Amoxicillin / Clavulanate 4 Susceptible ug/ml Ampicillin >=32 Resistant ug/ml Ampicillin / Sulbactam 16 Intermediate ug/ml Aztreonam <=1 Susceptible ug/ml Cefazolin 16 Resistant ug/ml Cefepime <=0.12 Susceptible ug/ml Ceftriaxone <=0.25 Susceptible ug/ml Cefuroxime axetil 4 Susceptible ug/ml Ciprofloxacin <=0.06 Susceptible ug/ml Ertapenem <=0.12 Susceptible ug/ml Gentamicin <=1 Susceptible ug/ml Levofloxacin <=0.12 Susceptible ug/ml Meropenem <=0.25 Susceptible ug/ml Nitrofurantoin <=16 Susceptible ug/ml Piperacillin / Tazobactam <=4 Susceptible ug/ml Trimethoprim / Sulfamethoxazole >=320 Resistant ug/ml Imaging: ECG 12 lead Result Date: 01/23/2025 Sinus rhythm Ventricular premature complex Borderline left axis deviation Low voltage, (more content not included)... [facility] 01-26-2025 Hospital course Narrative Hospitalist Discharge Summary - [facility] - [employer] ([facility]) Eren Merchant : 1960 Admit date: 01/22/2025 Discharge date: 01/26/2025 Admitting Physician: Jennie Chang DO Primary Care Physician: Priyanka Smith Recommended Follow-up: Pepito Steve MD [address] [place] [facility] Schultz [facility] Follow up Disposition: Patient discharged in stable condition. Greater than 31 minutes spent discharging the patient and coming up with patient discharge plan. Follow up with Priyanka Smith in 1-2 weeks as appropriate. Hospital Course: Eren is a 64 y.o. female with a past medical history of parkinson's, thyroid cancer s/p surgical intervention, and overactive bladder with recurrent UTI. Patient developed heavy vaginal bleeding Saturday 01/20, she initially presented to [facility], was then transferred to [facility] for OB-Chief Gauger consult. Hgb baseline ~12, down to 8. She received 1.5 units of PRBC, second unit stopped for fever. CT A/P showed thickened bladder wall and bilateral hydronephrosis. Bleeding stopped on own this morning, before Megace was given. Chief Gauger planning for hysteroscopy D&C inpatient per patient request. Patient developed fever and dysuria, urology following already. UA positive for UTI, placed on Zosyn prior. Patient denies any flank pain, frequency, foul smelling urine, or pain with urination. Hospital medicine was consulted for further management of UTI. Urine culture growing E Coli, Vanc stopped. On 01/24/2025, underwent hysteroscopy which found cervical stenosis, biopsy obtained but D&C was not performed. Chief Gauger does not think uterus was cause of bleeding. Cystoscopy was also performed with bilateral retrograde pyelograms completed by Urology. Dowd also removed 01/24. Discussed Flomax use with Urology, do not recommend Flomax at this time. Anemia workup showing VALDEZ, ferritin elevated in acute infection, prescribed oral Iron. DC home on Augmentin for 3 more days. Discharge Diagnoses: Acute, acute on chronic, unstable/uncontrolled chronic problems/diagnoses: Urinary tract infection Severe sepsis 2/2 UTI Vaginal bleeding, suspect 2/2 recently passed kidney stone Bilateral hydronephrosis Hyponatremia Hypokalemia Iron deficiency anemia Metabolic acidosis CKD 3 (baseline Cr ~ 1.6 - 1.7) Stable chronic problems affecting care, new non-acute diagnoses: Parkinson's Constipation Esophageal dysmotility Interstitial lung disease and Nonspecific Interstitial Pneumonia (NSIP) on Cellcept Adult diet Regular Vitals: BP 127/78 (BP Location: Left arm, Patient Position: Lying) Pulse 82 Temp 36.4 C (97.6 F) (Temporal) Resp 16 Ht 5' 5.5 (1.664 m) Wt 169 lb (76.7 kg) LMP (LMP Unknown) SpO2 100% BMI 27.70 kg/m Pulse Ox: SpO2 Av.5 % Min: 99 % Max: 100 % Supplemental O2: O2 Flow Rate (L/min): 6 L/min GENERAL: appears comfortable and stated age CARDIOVASCULAR: regular RESPIRATORY: clear without rhonchi ABDOMEN: non distended EXTREMITIES: moving appropriately Recent Labs 01/24/2551901/25/2531901/26/257 WBC 10.2 7.1 9.5 HGB 8.9* 10.2* 9.2* PLT 245 353 369 Recent Labs 01/24/2551901/25/2531901/26/25456 NA 135* 138 136 K 3.5 4.3 4.0 CL 109* 110* 111* CO2 21* 20* 18* BUN 19 26* 30* CREATININE 1.37* 1.46* 1.63* GLUCOSE 94 131* 90 No results for input(s): AST, ALT, BILITOT, ALKPHOS in the last 72 hours. No lab exists for component: ALB No results found for: TRIG, HDL, LDLCALC, CHOL No results found for: PHART, PO2ART, [id number] No results for input(s): INR in the last 72 hours. No results for input(s): DDIMER in the last 72 hours. No results found for: HGBA1C No results found for: TSH Urine Culture: Results for orders placed or performed during the hospital encounter of 01/22/25 Urine culture Collection Time: 01/22/25 8:27 PM Specimen: Urine, Clean Catch Result Value Ref Range Urine Culture >100,000 CFU/mL Escherichia coli (A) Urine Culture >100,000 CFU/mL Streptococcus agalactiae (Group B) (A) Susceptibility Escherichia coli - BROTH MICRODILUTION Amoxicillin / Clavulanate 4 Susceptible ug/ml Ampicillin >=32 Resistant ug/ml Ampicillin / Sulbactam 16 Intermediate ug/ml Aztreonam <=1 Susceptible ug/ml Cefazolin 16 Resistant ug/ml Cefepime <=0.12 Susceptible ug/ml Ceftriaxone <=0.25 Susceptible ug/ml Cefuroxime axetil 4 Susceptible ug/ml Ciprofloxacin <=0.06 Susceptible ug/ml Ertapenem <=0.12 Susceptible ug/ml Gentamicin <=1 Susceptible ug/ml Levofloxacin <=0.12 Susceptible ug/ml Meropenem <=0.25 Susceptible ug/ml Nitrofurantoin <=16 Susceptible ug/ml Piperacillin / Tazobactam <=4 Susceptible ug/ml Trimethoprim / Sulfamethoxazole >=320 Resistant ug/ml Imaging: ECG 12 lead Result Date: 01/23/2025 Sinus rhythm Ventricular premature complex Borderline left axis deviation Low voltage, precordial leads Borderline T abnormalities, diffuse leads Electronically Signed On 01-23-2025 02:30:53 EDT by Luis Armando Baugh CT abdomen pelvis wo IV contrast Result Date: 01/22/2025 Patient Name: EREN MERCHANT : 1960 Exam Date/Time: 01/22/2025 15:44 Procedure: CT ABDOMEN PELVIS WO IV CONTRAST Ordering Provider: CHANG GINA Reason For Exam: previous imaging showing bladder wall thickening and hydronephrosis CT abdomen and pelvis without contrast History: Bladder wall thickening Technique: 3 mm axial images from the lung bases to just below the pubic symphysis without intravenous contrast Dose reduction was employed with automated exposure control. Comparison: 03/05/2024 Mild bilateral hydronephrosis. 4 mm stone in the lower right kidney. Generalized bladder wall thickening may be from bladder outlet obstruction. The liver, spleen, pancreas, and adrenals are normal. Small hiatal hernia. No bowel inflammation or obstruction. No free fluid. Mild bilateral hydronephrosis. A 4 mm stone in the lower right kidney. Generalized bladder wall thickening may be from bladder outlet obstruction. Report Dictated on Electronically Signed By: Ron Yoon MD Electronically Signed Date/Time: 01/22/2025 5:25 PM EDT Consults: IP CONSULT TO LOAN INTERVIEWER IP CONSULT TO UROLOGY IP CONSULT TO INTERNAL MEDICINE IP CONSULT TO NEPHROLOGY Discharge Medications: Medication List START taking these medications amoxicillin-clavulanate 875-125 MG tablet Commonly known as: Augmentin Take 1 tablet by mouth 2 times daily for 5 doses. carbidopa-levodopa CR 25-100 MG ER tablet Commonly known as: Sinemet CR Replaces: carbidopa-levodopa 25-100 MG tablet DSS 100 MG capsule ferrous sulfate 325 (65 Fe) MG tablet Take 1 tablet (325 mg) by mouth daily with supper. CHANGE how you take these medications amitriptyline 100 MG tablet Commonly known as: Elavil What changed: medication strength how much to take additional instructions fludrocortisone 0.1 MG tablet Commonly known as: Florinef Take 1 tablet (0.1 mg) by mouth 2 times daily. What changed: additional instructions CONTINUE taking these medications Calcium Carb-Cholecalciferol 600-10 MG-MCG tablet carbidopa 25 MG tablet Commonly known as: Lodsyn levothyroxine 75 MCG tablet Commonly known as: Synthroid, Levoxyl mycophenolate 500 MG tablet Commonly known as: Cellcept pantoprazole 40 MG EC tablet Commonly known as: ProtoNix STOP taking these medications aspirin 81 MG EC tablet biotin 5000 MCG capsule carbidopa-levodopa 25-100 MG tablet Commonly known as: Sinemet Replaced by: carbidopa-levodopa CR 25-100 MG ER tablet fluconazole 200 MG tablet Commonly known as: Diflucan ondansetron 4 MG tablet Commonly known as: Zofran Prevagen 10 MG capsule Generic drug: Apoaequorin Trulance tablet tablet Generic drug: plecanatide Where to Get Your Medications These medications were sent to [facility] - [place], [place] - [address] [place] [address] amoxicillin-clavulanate 875-125 MG tablet ferrous sulfate 325 (65 Fe) MG tablet Signed: Spike Strange DO 01/26/2025, 12:14 PM documented in this encounter [facility] 01-26-2025 Hospital Discharge instructions Spike Strange DO - 01/26/2025 9:12 AM EDT Follow up with PCP within 1 week to review all medications and findings of this admission. Thank you for letting me take part of your care. Wish you a speedy recovery. Call your PCP or go to ED if symptoms return. Thanks, Dr. Spike Strange [facility] Answering Service documented in this encounter [facility] 01-26-2025 Note Hospitalist Progress Note - [facility] - [facility] ([facility]) 01/26/2025 9:08 AM [phone]: Please page me for patient care issues. [phone]: Please page [facility] Hospitalist - [facility] for any issues. Subjective and Objective: Admit Date: 01/22/2025 PCP: Priyanka Smith 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 Patient presents with Vaginal Bleeding Transfer from [place] [facility] for a REFERENCE TEST CLERK/ONC consult. Started to bleed heavily Wednesday morning going thru approx 70 maxi pads. +clots. Received 1 unit of PRBCs @ [place] but didn't receive full second unit d/t increased temperature. Per EMS she became hypotensive for 90s/50s and was given a 500cc bolus. Pt has no other complaints, just the bleeding. Adult diet Regular Dietary Orders (From admission, onward) Start Ordered 01/24/251723 Adult diet Regular Diet effective now Question: Diet type Answer: Regular 01/24/25 1723 I/O last 3 completed shifts: In: 1780 (23.2 mL/kg) [P.O.:1780] Out: - (0 mL/kg) Weight: 76.7 kg @IODETAILS@ @[id number]@ Medications: Continuous Meds[1] Scheduled Meds[2] Recent Labs 01/24/2551901/25/2531901/26/25 0457 WBC 10.2 7.1 9.5 HGB 8.9* 10.2* 9.2* PLT 245 353 369 Recent Labs 01/24/2551901/25/2531901/26/25 0457 NA 135* 138 136 K 3.5 4.3 4.0 CL 109* 110* 111* CO2 21* 20* 18* BUN 19 26* 30* CREATININE 1.37* 1.46* 1.63* GLUCOSE 94 131* 90 No results for input(s): AST, ALT, BILITOT, ALKPHOS in the last 72 hours. No lab exists for component: ALB No results found for: TRIG, HDL, LDLCALC, CHOL No results found for: PHART, PO2ART, [id number] No results for input(s): INR in the last 72 hours. No results for input(s): CKTOTAL, CKMB, TROPONINI in the last 72 hours. No results for input(s): DDIMER in the last 72 hours. No results found for: HGBA1C No results found for: TSH Urine Culture: Results for orders placed or performed during the hospital encounter of 01/22/25 Urine culture Collection Time: 01/22/25 8:27 PM Specimen: Urine, Clean Catch Result Value Ref Range Urine Culture >100,000 CFU/mL Escherichia coli (A) Urine Culture >100,000 CFU/mL Streptococcus agalactiae (Group B) (A) Susceptibility Escherichia coli - BROTH MICRODILUTION Amoxicillin / Clavulanate 4 Susceptible ug/ml Ampicillin >=32 Resistant ug/ml Ampicillin / Sulbactam 16 Intermediate ug/ml Aztreonam <=1 Susceptible ug/ml Cefazolin 16 Resistant ug/ml Cefepime <=0.12 Susceptible ug/ml Ceftriaxone <=0.25 Susceptible ug/ml Cefuroxime axetil 4 Susceptible ug/ml Ciprofloxacin <=0.06 Susceptible ug/ml Ertapenem <=0.12 Susceptible ug/ml Gentamicin <=1 Susceptible ug/ml Levofloxacin <=0.12 Susceptible ug/ml Meropenem <=0.25 Susceptible ug/ml Nitrofurantoin <=16 Susceptible ug/ml Piperacillin / Tazobactam <=4 Susceptible ug/ml Trimethoprim / Sulfamethoxazole >=320 Resistant ug/ml Objective: Vitals: BP 127/78 (BP Location: Left arm, Patient Position: Lying) Pulse 82 Temp 36.4 ?C (97.6 ?F) (Temporal) Resp 16 Ht 5' 5.5 (1.664 m) Wt 169 lb (76.7 kg) LMP (LMP Unknown) SpO2 100% BMI 27.70 kg/m? Pulse Ox: SpO2 Av.5 % Min: 99 % Max: 100 % Supplemental O2: Past 24 hours events: GENERAL: appears comfortable and stated age CARDIOVASCULAR: regular RESPIRATORY: clear without rhonchi ABDOMEN: non distended EXTREMITIES: moving appropriately ANATOMY/TUBES/LINES: N/A Running Summary, Assessment, and Plan Eren is a 64 y.o. female with a past medical history of parkinson's, thyroid cancer s/p surgical intervention, and overactive bladder with recurrent UTI. Patient developed heavy vaginal bleeding Saturday 01/20, she initially presented to [place] [facility], was then transferred to [facility] for OB-Chief Gauger consult. Hgb baseline ~12, down to 8. She received 1.5 units of PRBC, second unit stopped for fever. CT A/P showed thickened bladder wall and bilateral hydronephrosis. Bleeding stopped on own this morning, before Megace was given. Chief Gauger planning for hysteroscopy D&C inpatient per patient request. Patient developed fever and dysuria, urology following already. UA positive for UTI, placed on Zosyn prior. Patient denies any flank pain, frequency, foul smelling urine, or pain with urination. Hospital medicine was consulted for further management of UTI. Urine culture growing E Coli, Vanc stopped. On 01/24/2025, underwent hysteroscopy which found cervical stenosis, biopsy obtained but D&C was not performed. Chief Gauger does not think uterus was cause of bleeding. Cystoscopy was also performed with bilateral retrograde pyelograms completed by Urology. Dowd also removed 01/24. Likely dc home on Augmentin. Acute, acute on chronic, unstable/uncontrolled chronic problems/diagnoses: Urinary tract infection Severe sepsis 2/2 UTI Vaginal bleeding, suspect 2/2 recently passed kidney stone Bilateral hydronephrosis Hyponatremia Hypokalemia Iron deficiency anemia Metaboli (more content not included)... [facility] 01-26-2025 History of Present illness Narrative Hospitalist Progress Note - [facility] - [facility] ([employer]) 01/26/2025 9:08 AM [phone]: Please page me for patient care issues. [phone]: Please page [facility] Hospitalist - [facility] for any issues. Subjective and Objective: Admit Date: 01/22/2025 PCP: Priyanka Smith 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 Patient presents with Vaginal Bleeding Transfer from [place] [facility] for a REFERENCE TEST CLERK/ONC consult. Started to bleed heavily Wednesday morning going thru approx 70 maxi pads. +clots. Received 1 unit of PRBCs @ [place] but didn't receive full second unit d/t increased temperature. Per EMS she became hypotensive for 90s/50s and was given a 500cc bolus. Pt has no other complaints, just the bleeding. Adult diet Regular Dietary Orders (From admission, onward) Start Ordered 01/24/251723 Adult diet Regular Diet effective now Question: Diet type Answer: Regular 01/24/251722 I/O last 3 completed shifts: In: 1780 (23.2 mL/kg) [P.O.:1780] Out: - (0 mL/kg) Weight: 76.7 kg @IODETAILS@ @[id number]@ Medications: Continuous Meds[1] Scheduled Meds[2] Recent Labs 01/24/2551901/25/2531901/26/25456 WBC 10.2 7.1 9.5 HGB 8.9* 10.2* 9.2* PLT 245 353 369 Recent Labs 01/24/2551901/25/2531901/26/25456 NA 135* 138 136 K 3.5 4.3 4.0 CL 109* 110* 111* CO2 21* 20* 18* BUN 19 26* 30* CREATININE 1.37* 1.46* 1.63* GLUCOSE 94 131* 90 No results for input(s): AST, ALT, BILITOT, ALKPHOS in the last 72 hours. No lab exists for component: ALB No results found for: TRIG, HDL, LDLCALC, CHOL No results found for: PHART, PO2ART, TBD3QYQ No results for input(s): INR in the last 72 hours. No results for input(s): CKTOTAL, CKMB, TROPONINI in the last 72 hours. No results for input(s): DDIMER in the last 72 hours. No results found for: HGBA1C No results found for: TSH Urine Culture: Results for orders placed or performed during the hospital encounter of 01/22/25 Urine culture Collection Time: 01/22/25 8:27 PM Specimen: Urine, Clean Catch Result Value Ref Range Urine Culture >100,000 CFU/mL Escherichia coli (A) Urine Culture >100,000 CFU/mL Streptococcus agalactiae (Group B) (A) Susceptibility Escherichia coli - BROTH MICRODILUTION Amoxicillin / Clavulanate 4 Susceptible ug/ml Ampicillin >=32 Resistant ug/ml Ampicillin / Sulbactam 16 Intermediate ug/ml Aztreonam <=1 Susceptible ug/ml Cefazolin 16 Resistant ug/ml Cefepime <=0.12 Susceptible ug/ml Ceftriaxone <=0.25 Susceptible ug/ml Cefuroxime axetil 4 Susceptible ug/ml Ciprofloxacin <=0.06 Susceptible ug/ml Ertapenem <=0.12 Susceptible ug/ml Gentamicin <=1 Susceptible ug/ml Levofloxacin <=0.12 Susceptible ug/ml Meropenem <=0.25 Susceptible ug/ml Nitrofurantoin <=16 Susceptible ug/ml Piperacillin / Tazobactam <=4 Susceptible ug/ml Trimethoprim / Sulfamethoxazole >=320 Resistant ug/ml Objective: Vitals: BP 127/78 (BP Location: Left arm, Patient Position: Lying) Pulse 82 Temp 36.4 C (97.6 F) (Temporal) Resp 16 Ht 5' 5.5 (1.664 m) Wt 169 lb (76.7 kg) LMP (LMP Unknown) SpO2 100% BMI 27.70 kg/m Pulse Ox: SpO2 Av.5 % Min: 99 % Max: 100 % Supplemental O2: Past 24 hours events: GENERAL: appears comfortable and stated age CARDIOVASCULAR: regular RESPIRATORY: clear without rhonchi ABDOMEN: non distended EXTREMITIES: moving appropriately ANATOMY/TUBES/LINES: N/A Running Summary, Assessment, and Plan Eren is a 64 y.o. female with a past medical history of parkinson's, thyroid cancer s/p surgical intervention, and overactive bladder with recurrent UTI. Patient developed heavy vaginal bleeding Saturday 01/20, she initially presented to [place] ED, was then transferred to [facility] for OB-Chief Gauger consult. Hgb baseline ~12, down to 8. She received 1.5 units of PRBC, second unit stopped for fever. CT A/P showed thickened bladder wall and bilateral hydronephrosis. Bleeding stopped on own this morning, before Megace was given. Chief Gauger planning for hysteroscopy D&C inpatient per patient request. Patient developed fever and dysuria, urology following already. UA positive for UTI, placed on Zosyn prior. Patient denies any flank pain, frequency, foul smelling urine, or pain with urination. Hospital medicine was consulted for further management of UTI. Urine culture growing E Coli, Vanc stopped. On 01/24/2025, underwent hysteroscopy which found cervical stenosis, biopsy obtained but D&C was not performed. Chief Gauger does not think uterus was cause of bleeding. Cystoscopy was also performed with bilateral retrograde pyelograms completed by Urology. Dowd also removed 01/24. Likely dc home on Augmentin. Acute, acute on chronic, unstable/uncontrolled chronic problems/diagnoses: Urinary tract infection Severe sepsis 2/2 UTI Vaginal bleeding, suspect 2/2 recently passed kidney stone Bilateral hydronephrosis Hyponatremia Hypokalemia Iron deficiency anemia Metabolic acidosis CKD 3 (baseline Cr ~ 1.6 - 1.7) Stable chronic problems affecting care, new non-acute diagnoses: Parkinson's Constipation Esophageal dysmotility Interstitial lung disease and Nonspecific Interstitial Pneumonia (NSIP) on [employer] As a result of the above findings & factors, the following mgmt was pursued: - HR 92 with BP 135/85 - IV Vanc 01/22 - 01/24 - IV Zosyn 01/22 - 01/25 - IV Rocephin 01/25 - present - Urine culture growing E Coli - 2nd urine culture finalized E Coli and Group B Strep - Procal 2.9 - Anemia workup showing VALDEZ, ferritin elevated in acute infection, will prescribe Iron to take after infection is cleared - Takes Florinef at home for BP support - Discussed Flomax use with Urology, do not recommend Flomax at this time - Nephro consulted for CKD - am labs, replace lytes prn - 40 KCL 01/23 - PT/OT/CM/SW as appropriate - delirium precautions: limit night-time awakening - DVT prophylaxis: ambulation, no chemical agents due to recent bleeding Complexity: Acute illness or injury posing a threat to life or body function (HIGH). Risk: Admission to hospital-level care was considered or occurred (HIGH). Advance Directive: Full Anticipated Discharge - Date - 01/26 - 01/27 - Location - Home - Pending the following - antibiotic plan Total time spent (which include face to face and non face to face encounters) in minutes: 52 Toxic drug monitoring/narrow therapeutic index drug monitoring : # Drug name : Zosyn # Route administered : IV # Method of monitoring : Renal function Extended Emergency Contact Information Primary Emergency Contact: Shelton Merchant Mobile Relation: Son Preferred language: Colombian Venture Capitalist needed? No Secondary Emergency Contact: Clementina Merchant Mobile Relation: [id number] Spike Strange DO Division of Hospitalist Medicine Inpatient Medical Services/[facility] [1] [2] amitriptyline, 100 mg, Oral, Nightly carbidopa-levodopa CR, 1 tablet, Oral, TID cefTRIAXone, 1,000 mg, IntraVENous, q24h docusate sodium, 100 mg, Oral, BID [Held by provider] fludrocortisone, 0.1 mg, Oral, Dinner [Held by provider] fludrocortisone, 0.2 mg, Oral, Daily levothyroxine, 75 mcg, Oral, qAM AC Hospitalist Progress Note - [facility] - [facility] ([facility]) 01/25/2025 8:26 AM [phone]: Please page me for patient care issues. [phone]: Please page [facility] Hospitalist - [facility] for any issues. Subjective and Objective: Admit Date: 01/22/2025 PCP: Priyanka Smith 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 Patient presents with Vaginal Bleeding Transfer from [place] ER for a REFERENCE TEST CLERK/ONC consult. Started to bleed heavily Wednesday morning going thru approx 70 maxi pads. +clots. Received 1 unit of PRBCs @ [place] but didn't receive full second unit d/t increased temperature. Per EMS she became hypotensive for 90s/50s and was given a 500cc bolus. Pt has no other complaints, just the bleeding. Adult diet Regular Dietary Orders (From admission, onward) Start Ordered 01/24/251723 Adult diet Regular Diet effective now Question: Diet type Answer: Regular 01/24/251722 I/O last 3 completed shifts: In: 1689 (22 mL/kg) [P.O.:550; I.V.:1037 (13.5 mL/kg); IV Piggyback:102] Out: 2100 (27.4 mL/kg) [Urine:2100 (0.8 mL/kg/hr)] Weight: 76.7 kg @IODETAILS@ @[id number]@ Medications: Continuous Meds[1] Scheduled Meds[2] Recent Labs 01/23/25 0544 01/24/25 0520 01/25/25 0320 WBC 14.3* 10.2 7.1 HGB 8.6* 8.9* 10.2* PLT 227 245 353 Recent Labs 01/23/25 0544 01/24/25 0520 01/25/25 0320 NA 132* 135* 138 K 3.0* 3.5 4.3 CL 105 109* 110* CO2 22* 21* 20* BUN 20 19 26* CREATININE 1.40* 1.37* 1.46* GLUCOSE 99 94 131* No results for input(s): AST, ALT, BILITOT, ALKPHOS in the last 72 hours. No lab exists for component: ALB No results found for: TRIG, HDL, LDLCALC, CHOL No results found for: PHART, PO2ART, MDI1CYP No results for input(s): INR in the last 72 hours. No results for input(s): CKTOTAL, CKMB, TROPONINI in the last 72 hours. No results for input(s): DDIMER in the last 72 hours. No results found for: HGBA1C No results found for: TSH Urine Culture: Results for orders placed or performed during the hospital encounter of 01/22/25 Urine culture Collection Time: 01/22/25 8:27 PM Specimen: Urine, Clean Catch Result Value Ref Range Urine Culture >100,000 CFU/mL Escherichia coli (A) Urine Culture >100,000 CFU/mL Streptococcus agalactiae (Group B) (A) Objective: Vitals: BP 135/85 (BP Location: Right arm, Patient Position: Lying) Pulse 92 Temp 36.4 C (97.6 F) (Temporal) Resp 16 Ht 5' 5.5 (1.664 m) Wt 169 lb (76.7 kg) LMP (LMP Unknown) SpO2 99% BMI 27.70 kg/m Pulse Ox: SpO2 Av.4 % Min: 94 % Max: 100 % Supplemental O2: Past 24 hours events: GENERAL: in bed without acute distress CARDIOVASCULAR: RRR no rubs RESPIRATORY: good breath sounds throughout ABDOMEN: non-tender, no acute abd pain EXTREMITIES: no open wounds ANATOMY/TUBES/LINES: N/A Running Summary, Assessment, and Plan Eren is a 64 y.o. female with a past medical history of parkinson's, thyroid cancer s/p surgical intervention, and overactive bladder with recurrent UTI. Patient developed heavy vaginal bleeding Saturday 01/20, she initially presented to [place] ED, was then transferred to [facility] for OB-Chief Gauger consult. Hgb baseline ~12, down to 8. She received 1.5 units of PRBC, second unit stopped for fever. CT A/P showed thickened bladder wall and bilateral hydronephrosis. Bleeding stopped on own this morning, before Megace was given. Chief Gauger planning for hysteroscopy D&C inpatient per patient request. Patient developed fever and dysuria, urology following already. UA positive for UTI, placed on Zosyn prior. Patient denies any flank pain, frequency, foul smelling urine, or pain with urination. Hospital medicine was consulted for further management of UTI. Urine culture growing E Coli, Vanc stopped. On 01/24/2025, underwent hysteroscopy which found cervical stenosis, biopsy obtained but D&C was not performed. Chief Gauger does not think uterus was cause of bleeding. Cystoscopy was also performed with bilateral retrograde pyelograms completed by Urology. Dowd also removedx 01/24. Acute, acute on chronic, unstable/uncontrolled chronic problems/diagnoses: Urinary tract infection Severe sepsis 2/2 UTI Vaginal bleeding, suspect 2/2 recently passed kidney stone Bilateral hydronephrosis Hyponatremia Hypokalemia Iron deficiency anemia Metabolic acidosis CKD 3 (baseline Cr ~ 1.6 - 1.7) Stable chronic problems affecting care, new non-acute diagnoses: Parkinson's Constipation Esophageal dysmotility Interstitial lung disease and Nonspecific Interstitial Pneumonia (NSIP) on Cellcept As a result of the above findings & factors, the following mgmt was pursued: - HR 92 with BP 135/85 - IV Vanc 01/22 - 01/24 - IV Zosyn 01/22 - 01/25 - IV Rocephin 01/25 - present - Urine culture growing E Coli - 2nd urine culture finalized E Coli and Group B Strep - Procal 2.9 - Anemia workup showing VALDEZ, ferritin elevated in acute infection, will prescribe Iron to take after infection is cleared - Takes Florinef at home for BP support - Discussed Flomax use with Urology, do not recommend Flomax at this time - Nephro consulted for CKD - am labs, replace lytes prn - 40 KCL 9/9 - PT/OT/CM/SW as appropriate - delirium precautions: limit night-time awakening - DVT prophylaxis: ambulation, no chemical agents due to recent bleeding Complexity: Acute illness or injury posing a threat to life or body function (HIGH). Risk: Admission to hospital-level care was considered or occurred (HIGH). Advance Directive: Full Anticipated Discharge - Date - 01/26 - 01/27 - Location - Home - Pending the following - antibiotic plan Total time spent (which include face to face and non face to face encounters) in minutes: 51 Toxic drug monitoring/narrow therapeutic index drug monitoring : # Drug name : Magsyn # Route administered : IV # Method of monitoring : Renal function Extended Emergency Contact Information Primary Emergency Contact: ShondaShelton Mobile Relation: Son Preferred language: Colombian Venture Capitalist needed? No Secondary Emergency Contact: ShondaClementina Mobile Relation: [id number] Spike Strange DO Division of Hospitalist Medicine Inpatient Medical Services/[facility] [1] lactated Ringer's, 50 mL/hr, Last Rate: Stopped (01/24/25 1545) [2] carbidopa-levodopa CR, 1 tablet, Oral, TID docusate sodium, 100 mg, Oral, BID [Held by provider] fludrocortisone, 0.1 mg, Oral, Dinner [Held by provider] fludrocortisone, 0.2 mg, Oral, Daily levothyroxine, 75 mcg, Oral, qAM AC piperacillin-tazobactam, 4,500 mg, IntraVENous, q6h UROLOGY PROGRESS NOTE PATIENT NAME: Eren Merchant DATE OF : 1960 ADMISSION DATE: 01/22/2025 TODAY'S DATE: 01/25/2025 Subjective NAEON AF and HDS Denies any pain Discussed negative OR findings with patient this morning on rounds Objective VS: BP 135/85 (BP Location: Right arm, Patient Position: Lying) Pulse 92 Temp 36.4 C (97.6 F) (Temporal) Resp 16 Ht 5' 5.5 (1.664 m) Wt 169 lb (76.7 kg) LMP (LMP Unknown) SpO2 99% BMI 27.70 kg/m I & O - 24hr: I/O last 3 completed shifts: In: 1689 (22 mL/kg) [P.O.:550; I.V.:1037 (13.5 mL/kg); IV Piggyback:102] Out: 2100 (27.4 mL/kg) [Urine:2100 (0.8 mL/kg/hr)] Weight: 76.7 kg No intake/output data recorded. Physical Exam: General: Neck: Resp: Abdomen: No acute distress Supple Normal effort, no respiratory distress Soft, non-tender, nondistended : L flank NTTP, R flank NTTP, and no suprapubic tenderness Labs and Imaging Studies Labs: CBC: Lab Results Component Value Date WBC 7.1 01/25/2025 HGB 10.2 (L) 01/25/2025 HCT 31.2 (L) 01/25/2025 MCV 81.5 01/25/2025 PLT 353 01/25/2025 BMP: Lab Results Component Value Date GLUCOSE 131 (H) 01/25/2025 CALCIUM 9.4 01/25/2025 NA 138 01/25/2025 K 4.3 01/25/2025 CO2 20 (L) 01/25/2025 CL 110 (H) 01/25/2025 BUN 26 (H) 01/25/2025 CREATININE 1.46 (H) 01/25/2025 Imaging Studies: Reviewed Assessment and Plan ASSESSMENT: 64 y.o. female with hx of b/l hydro from outside hospital imaging - 1 Day Post-Op C&P - small capacity bladder, likely high pressure system - mandi hydro likely reflux - friable bladder mucosa - no tumors - dowd removed post-operatively WBC 7.1 from 10.2 Hgb 10.2 from 8.9 Cr 1.46 from 1.37 UA 01/22: +LE, WBC/RBC, few bacteria Ucx 01/22: E. Coli, S. Agalactiae Bcx 01/22: negative Abx: Zosyn CT 01/22: mild b/l hydro. 4mm stone R lower kidney. Bladder wall thickening PVR: 49cc PLAN: - Ok for diet - Continue to monitor labs and VS while inpatient - agree w/ IV abx for UTI - outpatient she may benefit from UDS - follow up outpatient w/ urogynecology, next appt 02/06 per discussion w/ pt this morning - remainder of care per primary team - urology will sign off at this time - please re-engage w/ any questions or concerns Jay Black MD PGY-3 Urology 01/25/25 7:03 AM The history and physical has been reviewed. The pertinent findings from the history of present illness, past medical history, family history, social history, review of systems have been noted and confirmed that are unchanged. Discussed with the urology resident. Agree with assessment and plan Images from the original note were not included. REFERENCE TEST CLERK Progress Note Date: 01/25/2025 Time: 5:23 AM Eren Merchant 64 y.o. female admitted for UTI and Vaginal Bleeding. Patient seen and examined. She had no acute complaints overnight. States she is doing well after her procedure yesterday. States she had some mild spotting after, but is now resolved. States she is not having nay abdominal pain/ cramping. Pain is controlled. Patient is tolerating oral intake. She is urinating. She is ambulating without difficulty. She denies Fever/Chills, Chest Pain, SOB, N/V. Vitals: Vitals: 01/24/25 1705 01/24/25 2143 01/25/25 0109 01/25/25 0420 BP: 134/86 121/89 114/76 135/85 BP Location: Right arm Right arm Right arm Right arm Patient Position: Lying Sitting Lying Lying Pulse: 87 98 87 92 Resp: 14 19 16 16 Temp: 36.3 C (97.4 F) 36.8 C (98.3 F) 36.4 C (97.6 F) 36.4 C (97.6 F) TempSrc: Temporal Temporal Temporal Temporal SpO2: 95% 95% 98% 99% Weight: Height: Physical Exam: Gen: NAD, resting comfortably in bed HEENT: Normocephalic, Atraumatic Resp: No increased WOB, no respiratory distress Card: Regular rate Abd: soft, NTND, no rebound, no guarding. Ext: No calf tenderness, swelling Medications: Current Medications[1] Diagnostics: ECG 12 lead Result Date: 01/23/2025 Sinus rhythm Ventricular premature complex Borderline left axis deviation Low voltage, precordial leads Borderline T abnormalities, diffuse leads Electronically Signed On 01-23-2025 02:30:53 EDT by Luis Armando Baugh CT abdomen pelvis wo IV contrast Result Date: 01/22/2025 Patient Name: EREN MERCHANT : 1960 Exam Date/Time: 01/22/2025 15:44 Procedure: CT ABDOMEN PELVIS WO IV CONTRAST Ordering Provider: CHANG GINA Reason For Exam: previous imaging showing bladder wall thickening and hydronephrosis CT abdomen and pelvis without contrast History: Bladder wall thickening Technique: 3 mm axial images from the lung bases to just below the pubic symphysis without intravenous contrast Dose reduction was employed with automated exposure control. Comparison: 03/05/2024 Mild bilateral hydronephrosis. 4 mm stone in the lower right kidney. Generalized bladder wall thickening may be from bladder outlet obstruction. The liver, spleen, pancreas, and adrenals are normal. Small hiatal hernia. No bowel inflammation or obstruction. No free fluid. Mild bilateral hydronephrosis. A 4 mm stone in the lower right kidney. Generalized bladder wall thickening may be from bladder outlet obstruction. Report Dictated on Electronically Signed By: Ron Yoon MD Component Date Value Ref Range Status ABO Grouping 01/22/2025 O Final Antibody Screen 01/22/2025 NEG Final Rh Type 01/22/2025 POS Final Auto WBC 01/22/2025 17.0 (H) 3.6 - 10.7 10*3/uL Final RBC 01/22/2025 3.15 (L) 3.80 - 5.20 10*6/uL Final Hemoglobin 01/22/2025 8.5 (L) 11.7 - 16.0 g/dL Final Hematocrit 01/22/2025 26.3 (L) 35.0 - 47.0 % Final MCV 01/22/2025 83.5 77.0 - 99.0 fL Final MCH 01/22/2025 27.0 26.0 - 34.0 pg Final MCHC 01/22/2025 32.3 30.5 - 36.0 % Final RDW 01/22/2025 13.8 11.5 - 15.0 % Final Platelets 01/22/2025 221 140 - 440 10*3/uL Final MPV 01/22/2025 10.0 9.0 - 12.7 fL Final SODIUM 01/22/2025 135 (L) 136 - 145 mmol/L Final POTASSIUM 01/22/2025 3.6 3.5 - 5.1 mmol/L Final Plasma potassium values may be up to 0.5 mmol/L lower than serum values. CHLORIDE 01/22/2025 106 98 - 107 mmol/L Final CARBON DIOXIDE 01/22/2025 21 (L) 23 - 31 mmol/L Final UREA NITROGEN 01/22/2025 28 (H) 9 - 23 mg/dL Final CREATININE 01/22/2025 1.83 (H) 0.57 - 1.11 mg/dL Final GLUCOSE 01/22/2025 119 (H) 82 - 115 mg/dL Final CALCIUM 01/22/2025 8.4 (L) 8.8 - 10.0 mg/dL Final ANION GAP 01/22/2025 8 3 - 13 mmol/L Final eGFR 01/22/2025 30.1 (L) >60.0 mL/min/1.73m*2 Final Calculation based on the Chronic Kidney Disease Epidemiology Collaboration (CKD-EPI) equation refit without adjustment for race PROTHROMBIN TIME 01/22/2025 12.4 (H) 9.0 - 12.0 s Final INR 01/22/2025 1.2 (H) 0.9 - 1.1 Final Recommended Anticoagulant Therapy: SEE BELOW ----- INR of 2.0 - 3.0 : - Prophylaxis of Venous Thrombosis (high-risk surgery) - Treatment of Venous Thrombosis - Treatment of Pulmonary Embolism (Includes tissue heart valves, Acute Myocardial Infarction to prevent systemic embolism, Valvular Heart Disease, and Atrial Fibrillation) ----- INR of 2.5 - 3.5 : - Mechanical Prosthetic Valves (high risk) - If oral anticoagulant therapy is used to prevent Myocardial Infarction Heart Rate 01/22/2025 96 bpm Final QRSD Interval 01/22/2025 88 ms Final QT Interval 01/22/2025 0 ms Final QTC Interval 01/22/2025 0 ms Final P Crawley 01/22/2025 -1 degrees Final QRS Crawley 01/22/2025 -25 degrees Final T Wave Crawley 01/22/2025 -49 degrees Final MN Interval 01/22/2025 142 ms Final RBC Morphology 01/22/2025 abnormal Final Poikilocytes 01/22/2025 Slight (A) (none) Final Ovalocytes 01/22/2025 Slight (A) (none) Final Neutrophils % 01/22/2025 89 (H) 38 - 82 % Final Bands % 01/22/2025 3 (H) <=0 % Final Lymphocytes % 01/22/2025 2 (L) 15 - 45 % Final Monocytes % 01/22/2025 6 5 - 13 % Final Absolute Neutrophil Count 01/22/2025 15.6 (H) 1.8 - 7.5 10*3/uL Final Bands Absolute 01/22/2025 0.5 (H) <=0.0 10*3/uL Final Lymphocytes Absolute 01/22/2025 0.3 (L) 1.0 - 4.3 10*3/uL Final Monocytes Absolute 01/22/2025 1.0 (H) 0.0 - 0.9 10*3/uL Final Neutrophils Manual 01/22/2025 88 Final Lymphocytes Manual 01/22/2025 2 Final Monocytes Manual 01/22/2025 6 Final Bands Manual 01/22/2025 3 Final Auto WBC 01/22/2025 15.4 (H) 3.6 - 10.7 10*3/uL Final RBC 01/22/2025 3.27 (L) 3.80 - 5.20 10*6/uL Final Hemoglobin 01/22/2025 8.9 (L) 11.7 - 16.0 g/dL Final Hematocrit 01/22/2025 26.5 (L) 35.0 - 47.0 % Final MCV 01/22/2025 81.0 77.0 - 99.0 fL Final MCH 01/22/2025 27.2 26.0 - 34.0 pg Final MCHC 01/22/2025 33.6 30.5 - 36.0 % Final RDW 01/22/2025 14.0 11.5 - 15.0 % Final Platelets 01/22/2025 221 140 - 440 10*3/uL Final MPV 01/22/2025 10.3 9.0 - 12.7 fL Final Color, Urine 01/22/2025 Yellow Lt. Yellow Final Clarity, Urine 01/22/2025 Extra Turbid (A) Clear Final pH, Urine 01/22/2025 7.5 5.0 - 8.0 pH Final Leukocytes, Urine 01/22/2025 500 (A) Negative Loren/uL Final Nitrite, Urine 01/22/2025 Negative Negative Final Protein, Urine 01/22/2025 50 (A) Negative mg/dL Final Glucose, Urine 01/22/2025 Normal Normal (<70) mg/dL Final Bilirubin, Urine 01/22/2025 Negative Negative mg/dL Final Ketones, Urine 01/22/2025 Negative Negative mg/dL Final Urobilinogen, Urine 01/22/2025 Normal Normal (0-1) mg/dL Final Blood, Urine 01/22/2025 1.0 (A) Negative mg/dL Final RBC, Urine 01/22/2025 51-100 (A) 0 - 2 /HPF Final WBC, Urine 01/22/2025 >100 (A) 0 - 5 /HPF Final Squamous Epithelial, Urine 01/22/2025 Negative 3 - 5 /HPF Final Bacteria, Urine 01/22/2025 Few (A) Negative /HPF Final WBC Clumps, Urine 01/22/2025 Many (A) Negative /HPF Final SPECIFIC GRAVITY OF URINE (NUMERIC) 01/22/2025 1.011 1.005 - 1.030 Final Urine Culture 01/22/2025 >100,000 CFU/mL Escherichia coli (A) Preliminary Urine Culture 01/22/2025 >100,000 CFU/mL Streptococcus agalactiae (Group B) (A) Preliminary Extra Tube 01/22/2025 Hold for add-ons. Final Auto resulted. LACTIC ACID 01/22/2025 0.7 0.5 - 2.2 mmol/L Final Blood Culture 01/22/2025 No growth at 48 hours Preliminary Blood Culture 01/22/2025 No growth at 48 hours Preliminary VANCOMYCIN, AUC 01/23/2025 17.6 ug/mL Final Urine Culture 01/22/2025 >100,000 CFU/mL Escherichia coli (A) Preliminary For identification and/or sensitivity, refer to culture collected on: 01/22/2025 at 20:27 ([facility]-[id number]) Staphylococcus aureus 01/22/2025 Not Detected Not Detected Final mecA gene 01/22/2025 Not Detected Not Detected Final Auto WBC 01/23/2025 14.3 (H) 3.6 - 10.7 10*3/uL Final RBC 01/23/2025 3.26 (L) 3.80 - 5.20 10*6/uL Final Hemoglobin 01/23/2025 8.6 (L) 11.7 - 16.0 g/dL Final Hematocrit 01/23/2025 26.3 (L) 35.0 - 47.0 % Final MCV 01/23/2025 80.7 77.0 - 99.0 fL Final MCH 01/23/2025 26.4 26.0 - 34.0 pg Final MCHC 01/23/2025 32.7 30.5 - 36.0 % Final RDW 01/23/2025 14.0 11.5 - 15.0 % Final Platelets 01/23/2025 227 140 - 440 10*3/uL Final MPV 01/23/2025 10.5 9.0 - 12.7 fL Final SODIUM 01/23/2025 132 (L) 136 - 145 mmol/L Final POTASSIUM 01/23/2025 3.0 (L) 3.5 - 5.1 mmol/L Final Plasma potassium values may be up to 0.5 mmol/L lower than serum values. CHLORIDE 01/23/2025 105 98 - 107 mmol/L Final CARBON DIOXIDE 01/23/2025 22 (L) 23 - 31 mmol/L Final UREA NITROGEN 01/23/2025 20 9 - 23 mg/dL Final CREATININE 01/23/2025 1.40 (H) 0.57 - 1.11 mg/dL Final GLUCOSE 01/23/2025 99 82 - 115 mg/dL Final CALCIUM 01/23/2025 8.5 (L) 8.8 - 10.0 mg/dL Final ANION GAP 01/23/2025 5 3 - 13 mmol/L Final eGFR 01/23/2025 41.6 (L) >60.0 mL/min/1.73m*2 Final Calculation based on the Chronic Kidney Disease Epidemiology Collaboration (CKD-EPI) equation refit without adjustment for race MAGNESIUM 01/23/2025 1.8 1.6 - 2.6 mg/dL Final PROCALCITONIN 01/23/2025 2.93 (H) <0.07 ng/mL Final Auto WBC 01/24/2025 10.2 3.6 - 10.7 10*3/uL Final RBC 01/24/2025 3.29 (L) 3.80 - 5.20 10*6/uL Final Hemoglobin 01/24/2025 8.9 (L) 11.7 - 16.0 g/dL Final Hematocrit 01/24/2025 27.0 (L) 35.0 - 47.0 % Final MCV 01/24/2025 82.1 77.0 - 99.0 fL Final MCH 01/24/2025 27.1 26.0 - 34.0 pg Final MCHC 01/24/2025 33.0 30.5 - 36.0 % Final RDW 01/24/2025 13.9 11.5 - 15.0 % Final Platelets 01/24/2025 245 140 - 440 10*3/uL Final MPV 01/24/2025 10.8 9.0 - 12.7 fL Final FERRITIN 01/24/2025 145 5 - 204 ng/mL Final IRON, TOTAL 01/24/2025 13 (L) 50 - 170 ug/dL Final IRON BINDING CAPACITY 01/24/2025 159 (L) 250 - 450 ug/dL Final IRON SATURATION 01/24/2025 8.2 (L) 20.0 - 50.0 % Final VITAMIN B12 01/24/2025 868 (H) 213 - 816 pg/mL Final FOLATE RESULT 01/24/2025 13.5 7.0 - 31.4 ng/mL Final Retic Ct Pct 01/24/2025 1.16 % Final Purvis < 5% Adults 0.4 - 2.0% SODIUM 01/24/2025 135 (L) 136 - 145 mmol/L Final POTASSIUM 01/24/2025 3.5 3.5 - 5.1 mmol/L Final Plasma potassium values may be up to 0.5 mmol/L lower than serum values. CHLORIDE 01/24/2025 109 (H) 98 - 107 mmol/L Final CARBON DIOXIDE 01/24/2025 21 (L) 23 - 31 mmol/L Final UREA NITROGEN 01/24/2025 19 9 - 23 mg/dL Final CREATININE 01/24/2025 1.37 (H) 0.57 - 1.11 mg/dL Final GLUCOSE 01/24/2025 94 82 - 115 mg/dL Final CALCIUM 01/24/2025 8.7 (L) 8.8 - 10.0 mg/dL Final ANION GAP 01/24/2025 5 3 - 13 mmol/L Final eGFR 01/24/2025 42.7 (L) >60.0 mL/min/1.73m*2 Final Calculation based on the Chronic Kidney Disease Epidemiology Collaboration (CKD-EPI) equation refit without adjustment for race MAGNESIUM 01/24/2025 1.9 1.6 - 2.6 mg/dL Final Auto WBC 01/25/2025 7.1 3.6 - 10.7 10*3/uL Final RBC 01/25/2025 3.83 3.80 - 5.20 10*6/uL Final Hemoglobin 01/25/2025 10.2 (L) 11.7 - 16.0 g/dL Final Hematocrit 01/25/2025 31.2 (L) 35.0 - 47.0 % Final MCV 01/25/2025 81.5 77.0 - 99.0 fL Final MCH 01/25/2025 26.6 26.0 - 34.0 pg Final MCHC 01/25/2025 32.7 30.5 - 36.0 % Final RDW 01/25/2025 13.6 11.5 - 15.0 % Final Platelets 01/25/2025 353 140 - 440 10*3/uL Final MPV 01/25/2025 10.3 9.0 - 12.7 fL Final IPF 01/25/2025 2 Final SODIUM 01/25/2025 138 136 - 145 mmol/L Final POTASSIUM 01/25/2025 4.3 3.5 - 5.1 mmol/L Final Plasma potassium values may be up to 0.5 mmol/L lower than serum values. CHLORIDE 01/25/2025 110 (H) 98 - 107 mmol/L Final CARBON DIOXIDE 01/25/2025 20 (L) 23 - 31 mmol/L Final UREA NITROGEN 01/25/2025 26 (H) 9 - 23 mg/dL Final CREATININE 01/25/2025 1.46 (H) 0.57 - 1.11 mg/dL Final GLUCOSE 01/25/2025 131 (H) 82 - 115 mg/dL Final CALCIUM 01/25/2025 9.4 8.8 - 10.0 mg/dL Final ANION GAP 01/25/2025 8 3 - 13 mmol/L Final eGFR 01/25/2025 39.5 (L) >60.0 mL/min/1.73m*2 Final Calculation based on the Chronic Kidney Disease Epidemiology Collaboration (CKD-EPI) equation refit without adjustment for race Assessment/Plan: Eren Merchant 64 y.o. female, admitted for concern for vaginal bleeding. Vaginal Bleeding Diffuse Cervical Stenosis -Presented to OSH for concern for diffuse heavy vaginal bleeding -TVUS completed at OSH Fluid filled endometrial cavity with a thickness of 12.1mm, including the fluid. Possible left hydrosalpinx vs dilated ureter. Fluid filled structure in midline of pelvis that may represent urinary bladder in which there is heterogenous echogenic debris -S/P 1u PRBC at OSH, 2nd unit discontinued due to fever -Placed on Megace 20mg BID, vaginal bleeding stopped near prior to administration of medication. - She is POD 1 from a pelvic exam under anesthesia and EMB. Hysteroscopy was unable to be completed because the cervix was noted to be stenotic and unable to be dilated. External os with tissue blocking, requiring incision for entry to cavity -Due to cervical stenosis and no bleeding detected vaginally on initial exam, would consider secondary sources of bleeding if symptoms return -VSS overnight; HgB up trending at 10.2 this AM -Megace discontinued -Will continue to peripherally follow for EMB results and further outpatient management. UTI Simple Sepsis-RESOLVED -Urology consulted secondary to abnormalities seen on CT in terms of bladder thickening and debris -Repeat CT completed on 01/22 concerning for mild bilateral hydronephrosis, 4 mm stone in right kidney, bladder wall thickening -Cystoscopy with bilateral retrograde pyelograms completed by Urology intraoperatively yest -UA Turbid, +Leukocytes, WBC, Blood, Bacteria, Urine culture growing Ecoli and GBS -Vancomycin discontinued; patient to remain on Zosyn -CBC with WBC 15.4, now down trended to 7.1; LA 0.7, Blood cultures x2 No growth at 24 hours -Dodw catheter per urology, with eventual plan for VT prior to removal Principal Problem: Vaginal bleeding Active Problems: Post-menopausal bleeding Please page the [facility] OBGYN Call RES group via Secure Chat for any questions or concerns.. REFERENCE TEST CLERK to sign off at this time. Sally Salazar DO 01/25/2025, 5:23 AM [1] Current Facility-Administered Medications: acetaminophen (Tylenol) tablet 1,000 mg, 1,000 mg, Oral, q8h PRN, Tonny Mendoza DO carbidopa-levodopa CR (Sinemet CR) 25-100 MG ER tablet 1 tablet, 1 tablet, Oral, TID, Catarina Callahan MD, 1 tablet at 01/24/252150 docusate sodium (Colace) capsule 100 mg, 100 mg, Oral, BID, Candelaria Pineda NP, 100 mg at 01/23/252032 [Held by provider] fludrocortisone (Florinef) tablet 0.1 mg, 0.1 mg, Oral, Dinner, Spike Strange DO [Held by provider] fludrocortisone (Florinef) tablet 0.2 mg, 0.2 mg, Oral, Daily, Spike Strange DO lactated Ringer's infusion, 50 mL/hr, IntraVENous, Continuous, Tonny Mendoza DO, Stopped at 01/24/25 1545 levothyroxine (Synthroid, Levoxyl) tablet 75 mcg, 75 mcg, Oral, qAM AC, Tonny Mendoza DO, 75 mcg at 01/25/25 0505 ondansetron ODT (Zofran-ODT) disintegrating tablet 4 mg, 4 mg, Oral, q8h PRN OR ondansetron (Zofran) injection 4 mg, 4 mg, IntraVENous, q6h PRN, Tonny Mendoza DO piperacillin-tazobactam (Zosyn) 4,500 mg in sodium chloride 0.9 % 100 mL IVPB Mini-Bag Plus, 4,500 mg, IntraVENous, q6h, Jennie Chang DO, Last Rate: 33.3 mL/hr at 01/25/25 0319, 4,500 mg at 01/25/25 0319 polyethylene glycol (PEG) 3350 (Miralax) packet 17 g, 17 g, Oral, Daily PRN, Tonny Mendoza DO Cosigned by Allyson Guerrero MD at 01/25/2025 8:07 PM EDT Vancomycin therapy has been discontinued by Dr. Strange on 01/24/25. Thank you for the consult. Pharmacy signing off for vancomycin dosing. Donna Rivera RPh Date: 01/24/25 Time: 12:38 PM Nutrition rescreen completed. Chart reviewed. Patient to be monitored and followed by the diet field artillery targeting technician. Pharmacy to Dose Vancomycin - Progress Note Lab Results Component Value Date CREATININE 1.37 (H) 01/24/2025 BUN 19 01/24/2025 WBC 10.2 01/24/2025 VANCOTROUGH 17.6 01/23/2025 Doses, serum creatinine, and vancomycin levels interfaced automatically to [employer] and data has been analyzed and interpreted. Infectious Diagnosis: Sepsis of Unknown Etiology Est CrCl: 48 mL/min (Cockcroft-Gault) Assessment: Current regimen vancomycin 1000 mg every 24 hours (13 mg/kg) Predicted AUC = 565 mg/L*hr (goal 400-600 mg/L*hr) PAUC = >95% (probability that AUC is >400 mg/L*hr) Pconc = 21% (probability that Ctrough is above 20 mcg/mL (toxicity)) Plan: Is the current dose therapeutic? [x] Yes - obtain next level on 01/26 unless predicted AUC is sub-/supra-therapeutic or change in serum creatinine. [] No - Trend serum creatinine. Trend AUC using Bayesian Modeling. Orders placed. DATE: 01/24/25 TIME: 8:41 AM Mathew Holguin PharmD Clinical Pharmacist Available via Secure Chat Hospitalist Progress Note - [facility] - [employer] ([facility]) 01/24/2025 8:27 AM [phone]: Please page me for patient care issues. [phone]: Please page [facility] Hospitalist - [facility] for any issues. Subjective and Objective: Admit Date: 01/22/2025 PCP: Priyanka Smith 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 Patient presents with Vaginal Bleeding Transfer from [facility] for a REFERENCE TEST CLERK/ONC consult. Started to bleed heavily Wednesday morning going thru approx 70 maxi pads. +clots. Received 1 unit of PRBCs @ [facility] but didn't receive full second unit d/t increased temperature. Per EMS she became hypotensive for 90s/50s and was given a 500cc bolus. Pt has no other complaints, just the bleeding. NPO diet with enteral medications Dietary Orders (From admission, onward) Start Ordered 01/24/25 0001 NPO diet with enteral medications Diet effective midnight Question: Medications? Answer: with enteral medications 01/23/25 1338 I/O last 3 completed shifts: In: 3091.7 (40.3 mL/kg) [P.O.:1350; IV Piggyback:1741.7] Out: 6075 (79.2 mL/kg) [Urine:6075 (2.2 mL/kg/hr)] Weight: 76.7 kg @IODETAILS@ @[email or web address]@ Medications: Continuous Meds[1] Scheduled Meds[2] Recent Labs 01/22/25200801/23/2554301/24/25 05 WBC 15.4* 14.3* 10.2 HGB 8.9* 8.6* 8.9* PLT 221 227 245 Recent Labs 01/22/2540801/23/2554301/24/25519 NA 135* 132* 135* K 3.6 3.0* 3.5 CL 106 105 109* CO2 21* 22* 21* BUN 28* 20 19 CREATININE 1.83* 1.40* 1.37* GLUCOSE 119* 99 94 No results for input(s): AST, ALT, BILITOT, ALKPHOS in the last 72 hours. No lab exists for component: ALB No results found for: TRIG, HDL, LDLCALC, CHOL No results found for: PHART, PO2ART, LEG2CWQ Recent Labs 01/22/25408 INR 1.2* No results for input(s): CKTOTAL, CKMB, TROPONINI in the last 72 hours. No results for input(s): DDIMER in the last 72 hours. No results found for: HGBA1C No results found for: TSH Urine Culture: Results for orders placed or performed during the hospital encounter of 03/04/24 Urine culture Collection Time: 03/05/24 1:44 PM Specimen: Urine, Clean Catch Result Value Ref Range Urine Culture No growth (<1,000 CFU/mL) Objective: Vitals: BP 119/76 (BP Location: Left arm, Patient Position: Lying) Pulse 91 Temp 36.3 C (97.3 F) (Temporal) Resp 16 Ht 5' 5.5 (1.664 m) Wt 169 lb (76.7 kg) LMP (LMP Unknown) SpO2 99% BMI 27.70 kg/m Pulse Ox: SpO2 Av % Min: 94 % Max: 99 % Supplemental O2: Past 24 hours events: son at bedside GENERAL: calm, no complaints CARDIOVASCULAR: no palpitations, regular RESPIRATORY: no rhonchi or crackles ABDOMEN: non-distended EXTREMITIES: moving spontaneously ANATOMY/TUBES/LINES: N/A Running Summary, Assessment, and Plan Eren is a 64 y.o. female with a past medical history of parkinson's, thyroid cancer s/p surgical intervention, and overactive bladder with recurrent UTI. Patient developed heavy vaginal bleeding Saturday 01/20, she initially presented to [facility], was then transferred to [facility] for OB-Chief Gauger consult. Hgb baseline ~12, down to 8. She received 1.5 units of PRBC, second unit stopped for fever. CT A/P showed thickened bladder wall and bilateral hydronephrosis. Bleeding stopped on own this morning, before Megace was given. Chief Gauger planning for hysteroscopy D&C inpatient per patient request. Patient developed fever and dysuria, urology following already. UA positive for UTI, placed on Zosyn prior. Patient denies any flank pain, frequency, foul smelling urine, or pain with urination. Hospital medicine was consulted for further management of UTI. Urine culture growing E Coli, Vanc stopped. 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 As a result of the above findings & factors, the following mgmt was pursued: - Afebrile past 24 hours, HR 91 with BP 119/76 - IV Vanc 01/22 - 01/24 - IV Zosyn 01/22 - present - Urine culture growing E Coli - Procal 2.9 - Anemia workup showing VALDEZ, ferritin elevated in acute infection, will prescribe Iron to take after infection is cleared - Takes Florinef at home for BP support, BP stable here likely due to IV fluids - am labs, replace lytes prn - 40 KCL 01/23 - PT/OT/CM/SW as appropriate - delirium precautions: limit night-time awakening - DVT prophylaxis: ambulation, no chemical agents due to recent bleeding Complexity: Acute illness or injury posing a threat to life or body function (HIGH). Risk: Admission to hospital-level care was considered or occurred (HIGH). Advance Directive: Full Anticipated Discharge - Date - 01/26 - 01/30 - Location - Home - Pending the following - antibiotic plan, Chief Gauger recs Total time spent (which include face to face and non face to face encounters) in minutes: 52 Toxic drug monitoring/narrow therapeutic index drug monitoring : # Drug name : Austinn # Route administered : IV # Method of monitoring : Renal function Extended Emergency Contact Information Primary Emergency Contact: Shelton Merchant Mobile Relation: Son Preferred language: Colombian Venture Capitalist needed? No Secondary Emergency Contact: Clementina Merchant Mobile Relation: [id number] Spike Strange DO [facility] [1] lactated Ringer's, 50 mL/hr, Last Rate: 50 mL/hr (01/23/25 0859) [2] carbidopa-levodopa CR, 1 tablet, Oral, TID docusate sodium, 100 mg, Oral, BID levothyroxine, 75 mcg, Oral, qAM AC megestrol, 20 mg, Oral, BID WC piperacillin-tazobactam, 4,500 mg, IntraVENous, q6h vancomycin, 1,000 mg, IntraVENous, q24h Images from the original note were not included. REFERENCE TEST CLERK Progress Note Date: 01/24/2025 Time: 5:20 AM Eren Merchant 64 y.o. female admitted for UTI and Vaginal Bleeding Patient seen and examined. She had no acute concerns overnight. Patient is currently NPO. Her dowd catheter remains in place. She denies any vaginal bleeding. She denies Fever/Chills, Chest Pain, SOB, N/V. She is awaiting surgery as would like to move forward with diagnosis for vaginal bleeding. Vitals: Vitals: 01/23/25 0519 01/23/25 0851 01/23/25 1430 01/23/25 1747 BP: 142/84 143/78 102/58 129/84 BP Location: Right arm Right arm Right arm Right arm Patient Position: Lying Sitting Sitting Sitting Pulse: 102 97 97 97 Resp: 18 16 22 20 Temp: 37.4 C (99.3 F) 36.4 C (97.5 F) 36.4 C (97.5 F) 36.8 C (98.3 F) TempSrc: Temporal Temporal Temporal Temporal SpO2: 92% 94% 97% 98% Weight: Height: Physical Exam: Gen: NAD, alert and cooperative HEENT: Normocephalic, atraumatic, EOMI, MMM Resp: No increased WOB Abd: soft, NT/ND, no rebound, no guarding. Ext: No LE edema, no calf tenderness or swelling Medications: Current Medications[1] Diagnostics: ECG 12 lead Result Date: 01/23/2025 Sinus rhythm Ventricular premature complex Borderline left axis deviation Low voltage, precordial leads Borderline T abnormalities, diffuse leads Electronically Signed On 01-23-2025 02:30:53 EDT by Luis Armando Baugh CT abdomen pelvis wo IV contrast Result Date: 01/22/2025 Patient Name: EREN MERCHANT : 1960 Exam Date/Time: 01/22/2025 15:44 Procedure: CT ABDOMEN PELVIS WO IV CONTRAST Ordering Provider: CHANG GINA Reason For Exam: previous imaging showing bladder wall thickening and hydronephrosis CT abdomen and pelvis without contrast History: Bladder wall thickening Technique: 3 mm axial images from the lung bases to just below the pubic symphysis without intravenous contrast Dose reduction was employed with automated exposure control. Comparison: 03/05/2024 Mild bilateral hydronephrosis. 4 mm stone in the lower right kidney. Generalized bladder wall thickening may be from bladder outlet obstruction. The liver, spleen, pancreas, and adrenals are normal. Small hiatal hernia. No bowel inflammation or obstruction. No free fluid. Mild bilateral hydronephrosis. A 4 mm stone in the lower right kidney. Generalized bladder wall thickening may be from bladder outlet obstruction. Report Dictated on Electronically Signed By: Ron Yoon MD Component Date Value Ref Range Status ABO Grouping 01/22/2025 O Final Antibody Screen 01/22/2025 NEG Final Rh Type 01/22/2025 POS Final Auto WBC 01/22/2025 17.0 (H) 3.6 - 10.7 10*3/uL Final RBC 01/22/2025 3.15 (L) 3.80 - 5.20 10*6/uL Final Hemoglobin 01/22/2025 8.5 (L) 11.7 - 16.0 g/dL Final Hematocrit 01/22/2025 26.3 (L) 35.0 - 47.0 % Final MCV 01/22/2025 83.5 77.0 - 99.0 fL Final MCH 01/22/2025 27.0 26.0 - 34.0 pg Final MCHC 01/22/2025 32.3 30.5 - 36.0 % Final RDW 01/22/2025 13.8 11.5 - 15.0 % Final Platelets 01/22/2025 221 140 - 440 10*3/uL Final MPV 01/22/2025 10.0 9.0 - 12.7 fL Final SODIUM 01/22/2025 135 (L) 136 - 145 mmol/L Final POTASSIUM 01/22/2025 3.6 3.5 - 5.1 mmol/L Final Plasma potassium values may be up to 0.5 mmol/L lower than serum values. CHLORIDE 01/22/2025 106 98 - 107 mmol/L Final CARBON DIOXIDE 01/22/2025 21 (L) 23 - 31 mmol/L Final UREA NITROGEN 01/22/2025 28 (H) 9 - 23 mg/dL Final CREATININE 01/22/2025 1.83 (H) 0.57 - 1.11 mg/dL Final GLUCOSE 01/22/2025 119 (H) 82 - 115 mg/dL Final CALCIUM 01/22/2025 8.4 (L) 8.8 - 10.0 mg/dL Final ANION GAP 01/22/2025 8 3 - 13 mmol/L Final eGFR 01/22/2025 30.1 (L) >60.0 mL/min/1.73m*2 Final Calculation based on the Chronic Kidney Disease Epidemiology Collaboration (CKD-EPI) equation refit without adjustment for race PROTHROMBIN TIME 01/22/2025 12.4 (H) 9.0 - 12.0 s Final INR 01/22/2025 1.2 (H) 0.9 - 1.1 Final Recommended Anticoagulant Therapy: SEE BELOW ----- INR of 2.0 - 3.0 : - Prophylaxis of Venous Thrombosis (high-risk surgery) - Treatment of Venous Thrombosis - Treatment of Pulmonary Embolism (Includes tissue heart valves, Acute Myocardial Infarction to prevent systemic embolism, Valvular Heart Disease, and Atrial Fibrillation) ----- INR of 2.5 - 3.5 : - Mechanical Prosthetic Valves (high risk) - If oral anticoagulant therapy is used to prevent Myocardial Infarction Heart Rate 01/22/2025 96 bpm Final QRSD Interval 01/22/2025 88 ms Final QT Interval 01/22/2025 0 ms Final QTC Interval 01/22/2025 0 ms Final P Crawley 01/22/2025 -1 degrees Final QRS Crawley 01/22/2025 -25 degrees Final T Wave Crawley 01/22/2025 -49 degrees Final MN Interval 01/22/2025 142 ms Final RBC Morphology 01/22/2025 abnormal Final Poikilocytes 01/22/2025 Slight (A) (none) Final Ovalocytes 01/22/2025 Slight (A) (none) Final Neutrophils % 01/22/2025 89 (H) 38 - 82 % Final Bands % 01/22/2025 3 (H) <=0 % Final Lymphocytes % 01/22/2025 2 (L) 15 - 45 % Final Monocytes % 01/22/2025 6 5 - 13 % Final Absolute Neutrophil Count 01/22/2025 15.6 (H) 1.8 - 7.5 10*3/uL Final Bands Absolute 01/22/2025 0.5 (H) <=0.0 10*3/uL Final Lymphocytes Absolute 01/22/2025 0.3 (L) 1.0 - 4.3 10*3/uL Final Monocytes Absolute 01/22/2025 1.0 (H) 0.0 - 0.9 10*3/uL Final Neutrophils Manual 01/22/2025 88 Final Lymphocytes Manual 01/22/2025 2 Final Monocytes Manual 01/22/2025 6 Final Bands Manual 01/22/2025 3 Final Auto WBC 01/22/2025 15.4 (H) 3.6 - 10.7 10*3/uL Final RBC 01/22/2025 3.27 (L) 3.80 - 5.20 10*6/uL Final Hemoglobin 01/22/2025 8.9 (L) 11.7 - 16.0 g/dL Final Hematocrit 01/22/2025 26.5 (L) 35.0 - 47.0 % Final MCV 01/22/2025 81.0 77.0 - 99.0 fL Final MCH 01/22/2025 27.2 26.0 - 34.0 pg Final MCHC 01/22/2025 33.6 30.5 - 36.0 % Final RDW 01/22/2025 14.0 11.5 - 15.0 % Final Platelets 01/22/2025 221 140 - 440 10*3/uL Final MPV 01/22/2025 10.3 9.0 - 12.7 fL Final Color, Urine 01/22/2025 Yellow Lt. Yellow Final Clarity, Urine 01/22/2025 Extra Turbid (A) Clear Final pH, Urine 01/22/2025 7.5 5.0 - 8.0 pH Final Leukocytes, Urine 01/22/2025 500 (A) Negative Loren/uL Final Nitrite, Urine 01/22/2025 Negative Negative Final Protein, Urine 01/22/2025 50 (A) Negative mg/dL Final Glucose, Urine 01/22/2025 Normal Normal (<70) mg/dL Final Bilirubin, Urine 01/22/2025 Negative Negative mg/dL Final Ketones, Urine 01/22/2025 Negative Negative mg/dL Final Urobilinogen, Urine 01/22/2025 Normal Normal (0-1) mg/dL Final Blood, Urine 01/22/2025 1.0 (A) Negative mg/dL Final RBC, Urine 01/22/2025 51-100 (A) 0 - 2 /HPF Final WBC, Urine 01/22/2025 >100 (A) 0 - 5 /HPF Final Squamous Epithelial, Urine 01/22/2025 Negative 3 - 5 /HPF Final Bacteria, Urine 01/22/2025 Few (A) Negative /HPF Final WBC Clumps, Urine 01/22/2025 Many (A) Negative /HPF Final SPECIFIC GRAVITY OF URINE (NUMERIC) 01/22/2025 1.011 1.005 - 1.030 Final Extra Tube 01/22/2025 Hold for add-ons. Final Auto resulted. LACTIC ACID 01/22/2025 0.7 0.5 - 2.2 mmol/L Final Blood Culture 01/22/2025 No growth at 24 hours Preliminary Blood Culture 01/22/2025 No growth at 24 hours Preliminary VANCOMYCIN, AUC 01/23/2025 17.6 ug/mL Final Staphylococcus aureus 01/22/2025 Not Detected Not Detected Final mecA gene 01/22/2025 Not Detected Not Detected Final Auto WBC 01/23/2025 14.3 (H) 3.6 - 10.7 10*3/uL Final RBC 01/23/2025 3.26 (L) 3.80 - 5.20 10*6/uL Final Hemoglobin 01/23/2025 8.6 (L) 11.7 - 16.0 g/dL Final Hematocrit 01/23/2025 26.3 (L) 35.0 - 47.0 % Final MCV 01/23/2025 80.7 77.0 - 99.0 fL Final MCH 01/23/2025 26.4 26.0 - 34.0 pg Final MCHC 01/23/2025 32.7 30.5 - 36.0 % Final RDW 01/23/2025 14.0 11.5 - 15.0 % Final Platelets 01/23/2025 227 140 - 440 10*3/uL Final MPV 01/23/2025 10.5 9.0 - 12.7 fL Final SODIUM 01/23/2025 132 (L) 136 - 145 mmol/L Final POTASSIUM 01/23/2025 3.0 (L) 3.5 - 5.1 mmol/L Final Plasma potassium values may be up to 0.5 mmol/L lower than serum values. CHLORIDE 01/23/2025 105 98 - 107 mmol/L Final CARBON DIOXIDE 01/23/2025 22 (L) 23 - 31 mmol/L Final UREA NITROGEN 01/23/2025 20 9 - 23 mg/dL Final CREATININE 01/23/2025 1.40 (H) 0.57 - 1.11 mg/dL Final GLUCOSE 01/23/2025 99 82 - 115 mg/dL Final CALCIUM 01/23/2025 8.5 (L) 8.8 - 10.0 mg/dL Final ANION GAP 01/23/2025 5 3 - 13 mmol/L Final eGFR 01/23/2025 41.6 (L) >60.0 mL/min/1.73m*2 Final Calculation based on the Chronic Kidney Disease Epidemiology Collaboration (CKD-EPI) equation refit without adjustment for race MAGNESIUM 01/23/2025 1.8 1.6 - 2.6 mg/dL Final PROCALCITONIN 01/23/2025 2.93 (H) <0.07 ng/mL Final ] Assessment/Plan: Eren Merchant 64 y.o. female, admitted for vaginal bleeding Vaginal Bleeding -Presented to OSH for concern for diffuse heavy vaginal bleeding -TVUS completed at OSH Fluid filled endometrial cavity with a thickness of 12.1mm, including the fluid. Possible left hydrosalpinx vs dilated ureter. Fluid filled structure in midline of pelvis that may represent urinary bladder in which there is heterogenous echogenic debris -S/P 1u PRBC at OSH, 2nd unit discontinued due to fever -Placed on Megace 20mg BID, vaginal bleeding stopped near prior to administration of medication. -HgB pending this AM -Has remained afebrile overnight, will proceed with hysteroscopy D+C today for tissue pathology and reduction in endometrial stripe, Urology will perform cystoscopy in combination -Remain NPO awaiting surgical intervention, Consent signed this AM UTI Simple Sepsis-RESOLVED -Urology consulted secondary to abnormalities seen on CT in terms of bladder thickening and debris -Repeat CT completed on 01/22 concerning for mild bilateral hydronephrosis, 4 mm stone in right kidney, bladder wall thickening -Mentioned consideration of pyelograms/cystoscopy, however patient then developed fever overnight concerning for sepsis 2/2 UTI -UA Turbid, +Leukocytes, WBC, Blood, Bacteria, Urine culture pending -CBC with WBC 15.4, LA 0.7, Blood cultures x2 No growth at 24 hours -Dowd catheter per urology, with eventual plan for VT prior to removal -Continued on Vanc/Zosyn, adjust following results of Ucx Principal Problem: Vaginal bleeding Active Problems: Post-menopausal bleeding Please page the [facility] OBGYN Call RES group via Secure Chat for any questions or concerns. Christi Garces MD 01/24/2025, 5:20 AM [1] Current Facility-Administered Medications: acetaminophen (Tylenol) tablet 1,000 mg, 1,000 mg, Oral, q8h PRN, Tonny Mendoza, DO carbidopa-levodopa CR (Sinemet CR) 25-100 MG ER tablet 1 tablet, 1 tablet, Oral, TID, Catarina Callahan MD, 1 tablet at 01/23/252032 docusate sodium (Colace) capsule 100 mg, 100 mg, Oral, BID, Candelaria Pineda, MIGUEL, 100 mg at 01/23/252032 lactated Ringer's infusion, 50 mL/hr, IntraVENous, Continuous, Tonny Mendoza DO, Last Rate: 50 mL/hr at 01/23/25858, 50 mL/hr at 01/23/25858 levothyroxine (Synthroid, Levoxyl) tablet 75 mcg, 75 mcg, Oral, qAM AC, Tonny Mendoza DO, 75 mcg at 01/24/25514 megestrol (Megace) tablet 20 mg, 20 mg, Oral, BID WC, Tonny Mendoza DO, 20 mg at 01/23/251753 ondansetron ODT (Zofran-ODT) disintegrating tablet 4 mg, 4 mg, Oral, q8h PRN OR ondansetron (Zofran) injection 4 mg, 4 mg, IntraVENous, q6h PRN, Tonny Mendoza DO piperacillin-tazobactam (Zosyn) 4,500 mg in sodium chloride 0.9 % 100 mL IVPB Mini-Bag Plus, 4,500 mg, IntraVENous, q6h, Jennie Chang DO, Last Rate: 33.3 mL/hr at 01/24/25514, 4,500 mg at 01/24/2515 polyethylene glycol (PEG) 3350 (Miralax) packet 17 g, 17 g, Oral, Daily PRN, Tonny Mendoza DO vancomycin (Vancocin) 1,000 mg in sodium chloride 0.9 % 250 mL IVPB (Vial Mate), 1,000 mg, IntraVENous, q24h, Jennie Chang DO, 1,000 mg at 01/23/25 2336 Cosigned by Becca Joseph MD at 01/24/2025 7:24 PM EDT Hospitalist Progress Note - [facility] [employer] ([facility]) 01/23/2025 7:40 AM [phone]: Please page me for patient care issues. [phone]: Please page [facility] Hospitalist - [facility] for any issues. Subjective and Objective: Admit Date: 01/22/2025 PCP: Priyanka Smith 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 Patient presents with Vaginal Bleeding Transfer from [facility] for a REFERENCE TEST CLERK/ONC consult. Started to bleed heavily Wednesday morning going thru approx 70 maxi pads. +clots. Received 1 unit of PRBCs @ [facility] but didn't receive full second unit d/t increased temperature. Per EMS she became hypotensive for 90s/50s and was given a 500cc bolus. Pt has no other complaints, just the bleeding. Adult diet Regular Dietary Orders (From admission, onward) Start Ordered 01/23/25628 Adult diet Regular Diet effective now Question: Diet type Answer: Regular 01/23/25628 I/O last 3 completed shifts: In: 2741.7 (35.8 mL/kg) [P.O.:1000; IV Piggyback:1741.7] Out: 1725 (22.5 mL/kg) [Urine:1725 (0.6 mL/kg/hr)] Weight: 76.7 kg @IODETAILS@ @[id number]@ Medications: Continuous Meds[1] Scheduled Meds[2] Recent Labs 01/22/2540801/22/25200801/23/25 0544 WBC 17.0* 15.4* 14.3* HGB 8.5* 8.9* 8.6* PLT 221 221 227 Recent Labs 01/22/2540801/23/25 0544 NA 135* 132* K 3.6 3.0* CL 106 105 CO2 21* 22* BUN 28* 20 CREATININE 1.83* 1.40* GLUCOSE 119* 99 No results for input(s): AST, ALT, BILITOT, ALKPHOS in the last 72 hours. No lab exists for component: ALB No results found for: TRIG, HDL, LDLCALC, CHOL No results found for: PHART, PO2ART, ESD8PXI Recent Labs 01/22/25 0409 INR 1.2* No results for input(s): CKTOTAL, CKMB, TROPONINI in the last 72 hours. No results for input(s): DDIMER in the last 72 hours. No results found for: HGBA1C No results found for: TSH Urine Culture: Results for orders placed or performed during the hospital encounter of 03/04/24 Urine culture Collection Time: 03/05/24 1:44 PM Specimen: Urine, Clean Catch Result Value Ref Range Urine Culture No growth (<1,000 CFU/mL) Objective: Vitals: BP 142/84 (BP Location: Right arm, Patient Position: Lying) Pulse 102 Temp 37.4 C (99.3 F) (Temporal) Resp 18 Ht 5' 5.5 (1.664 m) Wt 169 lb (76.7 kg) LMP (LMP Unknown) SpO2 92% BMI 27.70 kg/m Pulse Ox: SpO2 Av.2 % Min: 92 % Max: 98 % Supplemental O2: Past 24 hours events: temp 101.4 F overnight GENERAL: alert and oriented, no acute distress CARDIOVASCULAR: RRR, no murmurs RESPIRATORY: clear without wheezes ABDOMEN: soft, non tender EXTREMITIES: no edema ANATOMY/TUBES/LINES: N/A Running Summary, Assessment, and Plan Eren is a 64 y.o. female with a past medical history of parkinson's, thyroid cancer s/p surgical intervention, and overactive bladder with recurrent UTI. Patient developed heavy vaginal bleeding Saturday 01/20, she initially presented to [facility], was then transferred to [facility] for OB-Chief Gauger consult. Hgb baseline ~12, down to 8. She received 1.5 units of PRBC, second unit stopped for fever. CT A/P showed thickened bladder wall and bilateral hydronephrosis. Bleeding stopped on own this morning, before Megace was given. Chief Gauger planning for hysteroscopy D&C inpatient per patient request. Patient developed fever and dysuria, urology following already. UA positive for UTI, placed on Zosyn prior. Patient denies any flank pain, frequency, foul smelling urine, or pain with urination. Hospital medicine was consulted for further management of UTI. Acute, acute on chronic, unstable/uncontrolled chronic problems/diagnoses: Urinary tract infection Simple sepsis 2/2 UTI Vaginal bleeding Bilateral hydronephrosis Hyponatremia Hypokalemia CKD 3 (baseline Cr ~ 1.6 - 1.7) Stable chronic problems affecting care, new non-acute diagnoses: Parkinson's Constipation Esophageal dysmotility Interstitial lung disease and Nonspecific Interstitial Pneumonia (NSIP) on Cell[employer] As a result of the above findings & factors, the following mgmt was pursued: - Temp 101.4 F overnight with HR 105 - IV Vanc 01/22 - present - IV Zosyn 01/22 - present - Procal 2.9 - Check iron studies - Takes Florinef at home for BP support, BP stable here likely due to IV fluids - am labs, replace lytes prn - 40 KCL 01/23 - PT/OT/CM/SW as appropriate - delirium precautions: limit night-time awakening - DVT prophylaxis: ambulation, no chemical agents due to recent bleeding Complexity: Acute illness or injury posing a threat to life or body function (HIGH). Risk: Admission to hospital-level care was considered or occurred (HIGH). Advance Directive: Full Anticipated Discharge - Date - 01/25 - 01/30 - Location - Home - Pending the following - antibiotic plan, Chief Gauger recs Total time spent (which include face to face and non face to face encounters) in minutes: 51 Toxic drug monitoring/narrow therapeutic index drug monitoring : # Drug name : Zosyn # Route administered : IV # Method of monitoring : Renal function Extended Emergency Contact Information Primary Emergency Contact: Shelton Merchant Mobile Relation: Son Preferred language: Colombian Venture Capitalist needed? No Secondary Emergency Contact: ShondaClementina Mobile Relation: [id number] Spike Strange DO Division of Hospitalist Medicine Inpatient Medical Services/[facility] [1] lactated Ringer's, 50 mL/hr, Last Rate: 50 mL/hr (01/23/25 0059) [2] carbidopa-levodopa CR, 1 tablet, Oral, TID docusate sodium, 100 mg, Oral, BID levothyroxine, 75 mcg, Oral, qAM AC megestrol, 20 mg, Oral, BID WC piperacillin-tazobactam, 4,500 mg, IntraVENous, q8h vancomycin, 1,000 mg, IntraVENous, q24h Pharmacy to Dose Vancomycin - Progress Note Lab Results Component Value Date CREATININE 1.40 (H) 01/23/2025 BUN 20 01/23/2025 WBC 14.3 (H) 01/23/2025 VANCOTROUGH 17.6 01/23/2025 Doses, serum creatinine, and vancomycin levels interfaced automatically to [employer] and data has been analyzed and interpreted. Infectious Diagnosis: Sepsis Est CrCl: 47 mL/min (Cockcroft-Gault) Assessment: Current regimen vancomycin 750 mg every 24 hours (9.8 mg/kg) Predicted AUC = 435 mg/L*hr (goal 400-600 mg/L*hr) PAUC = 72% (probability that AUC is >400 mg/L*hr) Pconc = <5% (probability that Ctrough is above 20 mcg/mL (toxicity)) Plan: Is the current dose therapeutic? [x] No - change current regimen to vancomycin 1000 mg every 24 hours (13 mg/kg) for predicted AUC 578 mg/L*hr, PAUC = >95% , and Pconc* = <5%. Obtain next level on 01/26. Trend serum creatinine. Trend AUC using Bayesian Modeling. Orders placed. DATE: 01/23/25 TIME: 7:37 AM Kristie Duran PharmD Clinical Pharmacist Available via Secure Chat UROLOGY PROGRESS NOTE PATIENT NAME: Eren Merchant DATE OF : 1960 ADMISSION DATE: 01/22/2025 TODAY'S DATE: 01/23/2025 Subjective No acute events overnight Fevered to 101.4 Dowd placed for maximal decompression On RA Denies any pain this morning Feels okay Objective VS: BP 142/84 (BP Location: Right arm, Patient Position: Lying) Pulse 102 Temp 37.4 C (99.3 F) (Temporal) Resp 18 Ht 5' 5.5 (1.664 m) Wt 169 lb (76.7 kg) LMP (LMP Unknown) SpO2 92% BMI 27.70 kg/m I & O - 24hr: I/O last 3 completed shifts: In: 650 (8.5 mL/kg) [P.O.:650] Out: - (0 mL/kg) Weight: 76.7 kg I/O this shift: In: 2091.7 [P.O.:350; IV Piggyback:1741.7] Out: 1725 [Urine:1725] Physical Exam: General: Resp: Abdomen: No acute distress Normal effort, no respiratory distress, on RA Soft, non-tender, nondistended : No flank pain Labs and Imaging Studies Labs: CBC: Lab Results Component Value Date WBC 14.3 (H) 01/23/2025 HGB 8.6 (L) 01/23/2025 HCT 26.3 (L) 01/23/2025 MCV 80.7 01/23/2025 PLT 227 01/23/2025 BMP: Lab Results Component Value Date GLUCOSE 119 (H) 01/22/2025 CALCIUM 8.4 (L) 01/22/2025 NA 135 (L) 01/22/2025 K 3.6 01/22/2025 CO2 21 (L) 01/22/2025 CL 106 01/22/2025 BUN 28 (H) 01/22/2025 CREATININE 1.83 (H) 01/22/2025 PT/INR: Lab Results Component Value Date INR 1.2 (H) 01/22/2025 PROTIME 12.4 (H) 01/22/2025 Assessment and Plan ASSESSMENT: 64 y.o. female with bilateral hydro - CT: + bladder wall thickening - WBC: 14.3 - Hgb 8.6 - Cr 1.4 PLAN: - dowd for maximal drainage of urinary tract - plan to keep until afebrile x 24 hours - will plan for void trial prior to discharge - send UA and Ucx - agree w/ IV abx: Vanc, Zosyn - follow cultures and adjust per sensitivities - trend labs and fever curve - remainder of care per primary team - please page urology if pt deteriorates as this may necessitate urgent intervention Jay Black MD PGY-3 Urology 01/23/25 6:42 AM Cosigned by Ricki Ceballos MD at 01/23/2025 12:44 PM EDT Images from the original note were not included. REFERENCE TEST CLERK Progress Note Date: 01/23/2025 Time: 5:21 AM Eren Merchant 64 y.o. female, admitted for heavy vaginal bleeding, now with simple sepsis 2/2 UTI Patient seen and examined. She is feeling well, she did have documented fevers overnight and she noted that at the time she did feel warm. She was diagnosed with simple sepsis from UTI probable source. She stated that she is doing just fine this AM. She is making urine into dowd catheter. She reports that her previous vaginal bleeding has almost completely stopped. She denies lightheadedness and dizziness. Vitals: Vitals: 01/22/25 1747 01/22/25 2154 01/23/25 0121 01/23/25 0519 BP: 125/69 140/83 129/76 142/84 BP Location: Left arm Right arm Right arm Right arm Patient Position: Sitting Lying Lying Lying Pulse: 107 105 99 102 Resp: 14 18 20 18 Temp: (!) 38.3 C (101 F) (!) 38.6 C (101.4 F) 37 C (98.6 F) 37.4 C (99.3 F) TempSrc: Oral Temporal Temporal Temporal SpO2: 96% 94% 93% 92% Weight: Height: Intake/Output: Current Shift: I/O this shift: In: 1741.7 [IV Piggyback:1741.7] Out: 525 [Urine:525] Physical Exam: Gen: NAD, alert and cooperative HEENT: Normocephalic, atraumatic, EOMI Resp: No increased WOB Abd: soft, ND, no rebound, no guarding. Some tenderness in suprapubic region. Ext: No LE edema, no calf tenderness or swelling Medications: Current Medications[1] Diagnostics: ECG 12 lead Result Date: 01/23/2025 Sinus rhythm Ventricular premature complex Borderline left axis deviation Low voltage, precordial leads Borderline T abnormalities, diffuse leads Electronically Signed On 01-23-2025 02:30:53 EDT by Luis Armando Baugh CT abdomen pelvis wo IV contrast Result Date: 01/22/2025 [facility] 1960 [id number] Exam Date/Time: 01/22/2025 15:44 Procedure: CT ABDOMEN PELVIS WO IV CONTRAST Ordering Provider: CHANG GINA Reason For Exam: previous imaging showing bladder wall thickening and hydronephrosis CT abdomen and pelvis without contrast History: Bladder wall thickening Technique: 3 mm axial images from the lung bases to just below the pubic symphysis without intravenous contrast Dose reduction was employed with automated exposure control. Comparison: 03/05/2024 Mild bilateral hydronephrosis. 4 mm stone in the lower right kidney. Generalized bladder wall thickening may be from bladder outlet obstruction. The liver, spleen, pancreas, and adrenals are normal. Small hiatal hernia. No bowel inflammation or obstruction. No free fluid. Mild bilateral hydronephrosis. A 4 mm stone in the lower right kidney. Generalized bladder wall thickening may be from bladder outlet obstruction. Report Dictated on Electronically Signed By: Ron Yoon MD Component Date Value Ref Range Status ABO Grouping 01/22/2025 O Final Antibody Screen 01/22/2025 NEG Final Rh Type 01/22/2025 POS Final Auto WBC 01/22/2025 17.0 (H) 3.6 - 10.7 10*3/uL Final RBC 01/22/2025 3.15 (L) 3.80 - 5.20 10*6/uL Final Hemoglobin 01/22/2025 8.5 (L) 11.7 - 16.0 g/dL Final Hematocrit 01/22/2025 26.3 (L) 35.0 - 47.0 % Final MCV 01/22/2025 83.5 77.0 - 99.0 fL Final MCH 01/22/2025 27.0 26.0 - 34.0 pg Final MCHC 01/22/2025 32.3 30.5 - 36.0 % Final RDW 01/22/2025 13.8 11.5 - 15.0 % Final Platelets 01/22/2025 221 140 - 440 10*3/uL Final MPV 01/22/2025 10.0 9.0 - 12.7 fL Final SODIUM 01/22/2025 135 (L) 136 - 145 mmol/L Final POTASSIUM 01/22/2025 3.6 3.5 - 5.1 mmol/L Final Plasma potassium values may be up to 0.5 mmol/L lower than serum values. CHLORIDE 01/22/2025 106 98 - 107 mmol/L Final CARBON DIOXIDE 01/22/2025 21 (L) 23 - 31 mmol/L Final UREA NITROGEN 01/22/2025 28 (H) 9 - 23 mg/dL Final CREATININE 01/22/2025 1.83 (H) 0.57 - 1.11 mg/dL Final GLUCOSE 01/22/2025 119 (H) 82 - 115 mg/dL Final CALCIUM 01/22/2025 8.4 (L) 8.8 - 10.0 mg/dL Final ANION GAP 01/22/2025 8 3 - 13 mmol/L Final eGFR 01/22/2025 30.1 (L) >60.0 mL/min/1.73m*2 Final Calculation based on the Chronic Kidney Disease Epidemiology Collaboration (CKD-EPI) equation refit without adjustment for race PROTHROMBIN TIME 01/22/2025 12.4 (H) 9.0 - 12.0 s Final INR 01/22/2025 1.2 (H) 0.9 - 1.1 Final Recommended Anticoagulant Therapy: SEE BELOW ----- INR of 2.0 - 3.0 : - Prophylaxis of Venous Thrombosis (high-risk surgery) - Treatment of Venous Thrombosis - Treatment of Pulmonary Embolism (Includes tissue heart valves, Acute Myocardial Infarction to prevent systemic embolism, Valvular Heart Disease, and Atrial Fibrillation) ----- INR of 2.5 - 3.5 : - Mechanical Prosthetic Valves (high risk) - If oral anticoagulant therapy is used to prevent Myocardial Infarction Heart Rate 01/22/2025 96 bpm Final QRSD Interval 01/22/2025 88 ms Final QT Interval 01/22/2025 0 ms Final QTC Interval 01/22/2025 0 ms Final P Crawley 01/22/2025 -1 degrees Final QRS Crawley 01/22/2025 -25 degrees Final T Wave Crawley 01/22/2025 -49 degrees Final MN Interval 01/22/2025 142 ms Final RBC Morphology 01/22/2025 abnormal Final Poikilocytes 01/22/2025 Slight (A) (none) Final Ovalocytes 01/22/2025 Slight (A) (none) Final Neutrophils % 01/22/2025 89 (H) 38 - 82 % Final Bands % 01/22/2025 3 (H) <=0 % Final Lymphocytes % 01/22/2025 2 (L) 15 - 45 % Final Monocytes % 01/22/2025 6 5 - 13 % Final Absolute Neutrophil Count 01/22/2025 15.6 (H) 1.8 - 7.5 10*3/uL Final Bands Absolute 01/22/2025 0.5 (H) <=0.0 10*3/uL Final Lymphocytes Absolute 01/22/2025 0.3 (L) 1.0 - 4.3 10*3/uL Final Monocytes Absolute 01/22/2025 1.0 (H) 0.0 - 0.9 10*3/uL Final Neutrophils Manual 01/22/2025 88 Final Lymphocytes Manual 01/22/2025 2 Final Monocytes Manual 01/22/2025 6 Final Bands Manual 01/22/2025 3 Final Auto WBC 01/22/2025 15.4 (H) 3.6 - 10.7 10*3/uL Final RBC 01/22/2025 3.27 (L) 3.80 - 5.20 10*6/uL Final Hemoglobin 01/22/2025 8.9 (L) 11.7 - 16.0 g/dL Final Hematocrit 01/22/2025 26.5 (L) 35.0 - 47.0 % Final MCV 01/22/2025 81.0 77.0 - 99.0 fL Final MCH 01/22/2025 27.2 26.0 - 34.0 pg Final MCHC 01/22/2025 33.6 30.5 - 36.0 % Final RDW 01/22/2025 14.0 11.5 - 15.0 % Final Platelets 01/22/2025 221 140 - 440 10*3/uL Final MPV 01/22/2025 10.3 9.0 - 12.7 fL Final Color, Urine 01/22/2025 Yellow Lt. Yellow Final Clarity, Urine 01/22/2025 Extra Turbid (A) Clear Final pH, Urine 01/22/2025 7.5 5.0 - 8.0 pH Final Leukocytes, Urine 01/22/2025 500 (A) Negative Loren/uL Final Nitrite, Urine 01/22/2025 Negative Negative Final Protein, Urine 01/22/2025 50 (A) Negative mg/dL Final Glucose, Urine 01/22/2025 Normal Normal (<70) mg/dL Final Bilirubin, Urine 01/22/2025 Negative Negative mg/dL Final Ketones, Urine 01/22/2025 Negative Negative mg/dL Final Urobilinogen, Urine 01/22/2025 Normal Normal (0-1) mg/dL Final Blood, Urine 01/22/2025 1.0 (A) Negative mg/dL Final RBC, Urine 01/22/2025 51-100 (A) 0 - 2 /HPF Final WBC, Urine 01/22/2025 >100 (A) 0 - 5 /HPF Final Squamous Epithelial, Urine 01/22/2025 Negative 3 - 5 /HPF Final Bacteria, Urine 01/22/2025 Few (A) Negative /HPF Final WBC Clumps, Urine 01/22/2025 Many (A) Negative /HPF Final SPECIFIC GRAVITY OF URINE (NUMERIC) 01/22/2025 1.011 1.005 - 1.030 Final Extra Tube 01/22/2025 Hold for add-ons. Final Auto resulted. LACTIC ACID 01/22/2025 0.7 0.5 - 2.2 mmol/L Final Blood Culture 01/22/2025 Blood culture incubation started Preliminary Blood Culture 01/22/2025 Blood culture incubation started Preliminary Staphylococcus aureus 01/22/2025 Not Detected Not Detected Final mecA gene 01/22/2025 Not Detected Not Detected Final ] Assessment/Plan: Eren Merchant 64 y.o. female admitted for vaginal bleeding Vaginal Bleeding -Presented to OSH for concern for diffuse heavy vaginal bleeding -TVUS completed at OSH Fluid filled endometrial cavity with a thickness of 12.1mm, including the fluid. Possible left hydrosalpinx vs dilated ureter. Fluid filled structure in midline of pelvis that may represent urinary bladder in which there is heterogenous echogenic debris -S/P 1u PRBC at OSH, 2nd unit discontinued due to fever -Placed on Megace 20mg BID -HgB stable from previous 8.5-> 8.9 -Vaginal bleeding absent this AM -Will need endometrial biopsy vs Hysteroscopy D+C, at this time will need to defer due to underlying sepsis. If patient were to need surgical intervention per urology can plan to do this in combination UTI Simple Sepsis -Urology consulted secondary to abnormalities seen on CT in terms of bladder thickening and debris -Repeat CT completed on 01/22 concerning for mild bilateral hydronephrosis, 4 mm stone in right kidney, bladder wall thickening -Mentioned consideration of pyelograms/cystoscopy, however patient then developed fever overnight concerning for sepsis 2/2 UTI -UA Turbid, +Leukocytes, WBC, Blood, Bacteria, Urine culture pending -CBC with WBC 15.4, LA 0.7, Blood cultures x2 collected -Dowd catheter per urology, with eventual plan for VT prior to removal -Continued on Vanc/Zosyn, adjust following results of Ucx CKD -S/P IVF resucitation for sepsis protocol -Cr near baseline 1.83 (baseline 2.4) -Pharmacy consulted for Vanc dosing due to diminished GFR Internal Medicine team to take over primary mangement. Principal Problem: Vaginal bleeding Please page the [facility] OBGYN Call RES group via Secure Chat for any questions or concerns. Christi Garces MD 01/23/2025, 5:21 AM [1] Current Facility-Administered Medications: acetaminophen (Tylenol) tablet 1,000 mg, 1,000 mg, Oral, q8h PRN, Tonny Mendoza DO carbidopa-levodopa CR (Sinemet CR) 25-100 MG ER tablet 1 tablet, 1 tablet, Oral, TID, Catarina Callahan MD, 1 tablet at 01/22/25 1616 docusate sodium (Colace) capsule 100 mg, 100 mg, Oral, BID, Candelaria Pineda NP lactated Ringer's infusion, 50 mL/hr, IntraVENous, Continuous, Tonny Mendoza DO, Last Rate: 50 mL/hr at 01/23/25 0059, 50 mL/hr at 01/23/25 0059 levothyroxine (Synthroid, Levoxyl) tablet 75 mcg, 75 mcg, Oral, qAM AC, Tonny Mendoza DO megestrol (Megace) tablet 20 mg, 20 mg, Oral, BID WC, Tonny Mendoza DO, 20 mg at 01/22/25 210 ondansetron ODT (Zofran-ODT) disintegrating tablet 4 mg, 4 mg, Oral, q8h PRN OR ondansetron (Zofran) injection 4 mg, 4 mg, IntraVENous, q6h PRN, Tonny Mendoza DO piperacillin-tazobactam (Zosyn) 4,500 mg in sodium chloride 0.9 % 100 mL IVPB Mini-Bag Plus, 4,500 mg, IntraVENous, q8h, Jennie Chang DO polyethylene glycol (PEG) 3350 (Miralax) packet 17 g, 17 g, Oral, Daily PRN, Tonny Mendoza DO vancomycin (Vancocin) 750 mg in sodium chloride 0.9 % 250 mL IVPB, 750 mg, IntraVENous, q24h, Jennie Chang DO Cosigned by Lacy Moeller MD at 01/23/2025 1:22 PM EDT Associated attestation - Lacy Moeller MD - 01/23/2025 1:22 PM EDT Hospital Care (Independent): I independently saw and evaluated the patient. I agree with the findings and plan of care as documented in the resident's note. Patient appears well, sitting up in bed visiting with family. She reports that bleeding is very spotty now, had a little with wiping but that is it. She has no pain. We discussed that the lining of her uterus is thicker then we would expect given she is menopausal and sampling is needed. Would recommend hysteroscopy, D&C over EMB because D&C would also clear all the debris out as well as be a more thorough diagnostic procedure. She has a obgyn that she follows with but would really like to get it done while she is admitted to avoid the delay of diagnosis. Will try to add on tomorrow as long as she remains afebrile. Will touch base with urology as well to see if they want to do anything surgically at the same time. Will make npo after MN tonight Images from the original note were not included. Pharmacy Managed Vancomycin Dosing Service Consult Note Consult Date: 01/22/25 Patient Name: Eren Merchant Allergies: Azithromycin and Seasonal Age: 64 y.o. Sex: female Estimated body mass index is 27.7 kg/m as calculated from the following: Height as of this encounter: 1.664 m (5' 5.5). Weight as of this encounter: 76.7 kg (169 lb). DW: 77 kg Lab Results Component Value Date CREATININE 1.83 (H) 01/22/2025 CREATININE 1.77 (H) 03/09/2024 BUN 28 (H) 01/22/2025 BUN 40 (H) 03/09/2024 WBC 17.0 (H) 01/22/2025 WBC 13.8 (H) 03/09/2024 Calculated CrCl: 36 mL/min (Cockcroft-Gault) Consulted By: Jennie Chang DO Infectious Diagnosis: Sepsis (AUC Goal 400-600 mg/L*hr) Antimicrobials: Patient recently received an antibiotic (last 12 hours) None Assessment/Plan: Doses, serum creatinine, and vancomycin levels interfaced automatically to [employer] and data has been analyzed and interpreted. Give loading dose vancomycin 1500 mg x1. Then start Vancomycin 750 mg every 24 hours based on patient age, weight, renal function, and infectious diagnosis (9.8 mg/kg). Predicted AUC = 540 mg/L*hr (goal 400-600 mg/L*hr) PAUC = 93% (probability that AUC is >400 mg/L*hr) Pconc = 30% (probability that Ctrough is above 20 mcg/mL (toxicity)) Will assess random level on 01/23/25 and adjust as appropriate. Trend serum creatinine. Orders placed. Thank you for this consult. Please secure text or call with questions. DATE: 01/22/25 TIME: 7:39 PM Kat Garcia PharmD Clinical Pharmacist Available via Secure Chat Patient evaluated at the bedside during AM rounds today. She has only had light bleeding when using the restroom. Megace was ordered but has not been given yet so bleeding has slowed significantly on its own. She desires hysteroscopy D&C while she is in the hospital given difficulty with transportation for follow up as an outpatient. We discussed that urology may recommend surgical intervention so will await their recommendations prior to scheduling a procedure, which could be done as a combo case instead. She was agreeable to this plan. She was also already eating breakfast during my exam so would need to defer surgery until patient is NPO regardless. documented in this encounter [facility] 01-25-2025 Consult note Associated Order (s): IP CONSULT TO NEPHROLOGY [facility] Nephrology Consultation Note Reason for consultation: CKD 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: Vaginal bleeding History of Presenting Illness Patient is a 64 y.o. female with PMHx noted below who presented to [facility] ED on 01/22/2025 as transfer from [facility] with chief complaint listed above. Per report at [facility] ED pt found to be hypotensive and tachycardic. Hgb dropped from baseline ~ 12 to 8. Pt given 1 uPRBC, 2nd unit started but had to be stopped d/t fever. TVUS showed fluid filled endometrium with endometrial thickness of 12.[address] A/P with thickened bladder wall and heterogenous debris. Patient transferred to [facility] ED for AUTOMOTIVE SERVICE PROFESSIONAL evaluation. Patient admitted for observation to REFERENCE TEST CLERK service given acute blood loss anemia requiring transfusion. Started on Megace 20 mg BID. Urology consulted given abnormal bladder findings. Nephrology is consulted for evaluation and management of CKD3b, patient known to our group, follows outpatient with Dr Steve. Scr is currently 1.46, worsening from 1.37 prior. As high as 1.83 on admission. Patient's baseline creatinine appears to be 1.5-1.7. Home medications notable for fludrocortisone 0.2 mg in AM and 0.1 mg in PM, mycophenolate 500 mg BID, protonix Patient is not on Andrea inhibitors or ARB. No diuretics. Patient reports not using NSAIDS. No recent exposure to IV contrast. No relative hypotension noted. No signs of hemodynamic fluctuations. Imaging revealed mild bilateral hydronephrosis, a 4 mm stone in the lower R kidney, generalized bladder wall thickening Past Medical/Surgical History Medical History[1] Surgical History[2] Review of Systems All 12 systems reviewed and are negative except for what is mentioned in the HPI. Allergies Azithromycin and Seasonal Family History Family History[3] Social History Social History[4] Medications Prescriptions Prior to Admission[5] Current Medications: Scheduled Meds[6] Continuous Infusions:Continuous Meds[7] PRN Meds:PRN Meds[8] Physical Exam Vitals: 01/24/25 1705 01/24/25 2143 01/25/25 0109 01/25/25 0420 BP: 134/86 121/89 114/76 135/85 BP Location: Right arm Right arm Right arm Right arm Patient Position: Lying Sitting Lying Lying Pulse: 87 98 87 92 Resp: 14 19 16 16 Temp: 36.3 C (97.4 F) 36.8 C (98.3 F) 36.4 C (97.6 F) 36.4 C (97.6 F) TempSrc: Temporal Temporal Temporal Temporal SpO2: 95% 95% 98% 99% Weight: Height: Input / Output: 24 HR: Intake/Output Summary (Last 24 hours) at 01/25/2025 1024 Last data filed at 01/25/2025 0416 Gross per 24 hour Intake 1689 ml Output 400 ml Net 1289 ml IV Intake: P.O. (mL): 300 mL Dowd: [REMOVED] Urethral Catheter Txpyxuzb-hws-Jszrmn (mL): 1700 mL General: Comfortable appearing, cooperative to history and physical exam. Head: NCAT Eye: anicteric sclera, conjunctiva clear Mouth: mucus membrane semi-moist Neck: Supple Chest: B/L equal air entry, no crackles, no accessory muscles usage. CV: s1s2 heard RRR Abdomen: NT, non-distended, soft bowel sounds present, no palpable masses Extremities: no peripheral edema, no cyanosis or clubbing Skin: Warm, no rash Neurological: Oriented times three, Speech clear coherent Psychiatric: normal insight and judgement, good recall Data Recent Labs 01/23/2544 01/24/2551901/25/25 0320 WBC 14.3* 10.2 7.1 HGB 8.6* 8.9* 10.2* HCT 26.3* 27.0* 31.2* MCV 80.7 82.1 81.5 PLT 227 245 353 Recent Labs 01/23/2554301/24/2551901/25/25 0320 NA 132* 135* 138 K 3.0* 3.5 4.3 CL 105 109* 110* CO2 22* 21* 20* GLUCOSE 99 94 131* MG 1.8 1.9 -- BUN 20 19 26* CREATININE 1.40* 1.37* 1.46* Albumin: No components found for: LABALBU Calcium: Lab Results Component Value Date CALCIUM 9.4 01/25/2025 Ionized Calcium: No components found for: IONCA Magnesium: Lab Results Component Value Date MG 1.9 01/24/2025 Phosphorus: No results found for: PHOS Imaging: reviewed Lab Results Component Value Date COLORU Yellow 01/22/2025 GLUCOSEU Normal 01/22/2025 UROBILINOGEN Normal 01/22/2025 Assessment 64 y.o. female with CKD stage 3b Mild bilateral hydronephrosis Nephrolithiasis NAGMA Anemia RECOMMENDATIONS: -Scr currently 1.46, around baseline of 1.5 Cont to monitor renal function trend -Need strict Is & Os -Daily standing weights -Avoid nephrotoxins and IV contrast dye -Dose all meds per current eGFR < 45 -Hgb noted, ok for prn transfusions for hgb < 7.0 -Mild metabolic acidosis noted, cont to monitor bicarb trend for now -Urology input noted, b/l hydro thought to be reflux related in setting of small capacity bladder/high pressure system PVR negative for retention -REFERENCE TEST CLERK input noted -IV abx for UTI per primary: on Zosyn -Outpatient nephrology follow up for ongoing nephrolithiasis management Maintain low oxalate diet and increased free water intake -Rest of management per primary team We will follow along closely. Thank you for asking us to participate in the management of your patient, please do not hesitate to contact me for any concerns regarding my recommendations as outlined above. I can be easily reached via Secure Chat SIGNATURE: Deepika Rivera PA-C PATIENT NAME: Eren Merchant DATE: January 25, 2025 Office [facility] [phone] Note not finalized until authorized by Attending physician. [1] Past Medical History: Diagnosis Date Arthritis Cancer (CMS/HCC) (HCC) Disease of thyroid gland [2] Past Surgical History: Procedure Laterality Date BACK SURGERY CHOLECYSTECTOMY COLON SURGERY THYMECTOMY stated per patient, for cancer removal [3] No family history on file. [4] Social History Socioeconomic History Marital status: Tobacco Use Smoking status: Never Smokeless tobacco: Never Vaping Use Vaping status: Never Used Substance and Sexual Activity Alcohol use: Never Drug use: Never Sexual activity: Not Currently Social Drivers of Health Financial Resource Strain: Low Risk (12/11/2024) Received from [facility] Overall Financial Resource Strain (CARDIA) Difficulty of Paying Living Expenses: Not hard at all Food Insecurity: No Food Insecurity (01/22/2025) Hunger Vital Sign Worried About Running Out of Food in the Last Year: Never true Ran Out of Food in the Last Year: Never true Transportation Needs: No Transportation Needs (01/22/2025) PRAPARE - Transportation Lack of Transportation (Medical): No Lack of Transportation (Non-Medical): No Physical Activity: Insufficiently Active (12/11/2024) Received from [facility] Exercise Vital Sign Days of Exercise per Week: 3 days Minutes of Exercise per Session: 30 min Stress: No Stress Concern Present (12/11/2024) Received from [facility] [employer] - Occupational Stress Questionnaire Feeling of Stress : Not at all Social Connections: Moderately Isolated (12/11/2024) Received from [facility] Social Connection and Isolation Panel [NHANES] Frequency of Communication with Friends and Family: More than three times a week Frequency of Social Gatherings with Friends and Family: Once a week Attends [employer] Services: 1 to 4 times per year Active Member of Clubs or Organizations: No Attends Club or Organization Meetings: Never Marital Status: Intimate Partner Violence: Not At Risk (01/22/2025) Humiliation, Afraid, Rape, and Kick questionnaire Fear of Current or Ex-Partner: No Emotionally Abused: No Physically Abused: No Sexually Abused: No Housing Stability: Low Risk (01/22/2025) Housing Stability Vital Sign Unable to Pay for Housing in the Last Year: No Number of Times Moved in the Last Year: 1 Homeless in the Last Year: No [5] Medications Prior to Admission Medication Sig Dispense Refill Last Dose/Taking aspirin 81 MG EC tablet Take 81 mg by mouth in the morning. 01/21/2025 at 9:00 AM Calcium Carb-Cholecalciferol 600-10 MG-MCG tablet Take 1 tablet by mouth in the morning and 1 tablet in the evening. 01/21/2025 at 9:00 AM carbidopa (Lodsyn) 25 MG tablet Take 25 mg by mouth 3 times daily. 01/21/2025 at 12:00 PM carbidopa-levodopa (Sinemet) 25-100 MG tablet Take 1 tablet by mouth 3 times daily. 01/21/2025 at 12:00 PM fludrocortisone (Florinef) 0.1 MG tablet Take 1 tablet (0.1 mg) by mouth 2 times daily. (Patient taking differently: Take 0.1 mg by mouth 2 times daily. 2 tabs in morning 1 tab in evening) 60 tablet 0 01/21/2025 at 9:00 AM levothyroxine (Synthroid, Levoxyl) 75 MCG tablet Take 75 mcg by mouth every morning (before breakfast). 01/21/2025 at 6:00 AM mycophenolate (Cellcept) 500 MG tablet Take 500 mg by mouth 2 times daily. 01/21/2025 at 9:00 AM pantoprazole (ProtoNix) 40 MG EC tablet Take 40 mg by mouth every morning (before breakfast). Do not crush, chew, or split. 01/21/2025 at 9:00 AM plecanatide (Trulance) tablet tablet Take 3 mg by mouth daily. 01/21/2025 at 9:00 AM amitriptyline (Elavil) 100 MG tablet Take 1 tablet (100 mg) by mouth Nightly. amitriptyline (Elavil) 75 MG tablet Take 75 mg by mouth Nightly. AVS from 03/03 from [facility] [address] Benitez states: discontinue the elavil for now - we will taper it down. Take 50 mg 4-5 days, then take 25 mg for 4-5 days then stop. (Patient taking differently: Take 100 mg by mouth Nightly. AVS from 03/03 [address] [facility] with [address] Benitez states: discontinue the elavil for now - we will taper it down. Take 50 mg 4-5 days, then take 25 mg for 4-5 days then stop.) 01/20/2025 at 10:00 PM Apoaequorin (Prevagen) 10 MG capsule Take 10 mg by mouth daily. (Patient not taking: Reported on 04/07/2024) biotin 5000 MCG capsule Take 5,000 mcg by mouth daily. OTC per patient (Patient not taking: Reported on 01/22/2025) Not Taking carbidopa-levodopa CR (Sinemet CR) 25-100 MG ER tablet Take 1 tablet by mouth 3 times daily. Do not crush, chew, or split. docusate sodium 100 MG capsule Take 1 capsule (100 mg) by mouth 2 times daily. fluconazole (Diflucan) 200 MG tablet Take 200 mg by mouth daily. (Patient not taking: Reported on 01/22/2025) Not Taking ondansetron (Zofran) 4 MG tablet Take 4 mg by mouth every 8 hours as needed for nausea or vomiting. New prescription, unsure of times or dose (Patient not taking: Reported on 03/23/2024) More than a month [6] amitriptyline, 100 mg, Oral, Nightly carbidopa-levodopa CR, 1 tablet, Oral, TID docusate sodium, 100 mg, Oral, BID [Held by provider] fludrocortisone, 0.1 mg, Oral, Dinner [Held by provider] fludrocortisone, 0.2 mg, Oral, Daily levothyroxine, 75 mcg, Oral, qAM AC piperacillin-tazobactam, 4,500 mg, IntraVENous, q6h [7] [8] PRN medications: acetaminophen, ondansetron ODT OR ondansetron, polyethylene glycol (PEG) 3350 Cosigned by Pepito Steve MD at 01/25/2025 4:09 PM EDT Associated attestation - Pepito Steve MD - 01/25/2025 4:09 PM EDT Patient was seen and examined by me. Notes reviewed and plan discussed with the PA. Agree with above note except Any variance is noted below. Noted previous episodes of borderline blood pressure with systolic into the 90s. Status post IV fluid. Now the blood pressures are within normal range and acceptable. Renal function near baseline. Noted recommendations from urology. Noted no significant urine retention. Input from gynecology services noted. UA to be repeated as an outpatient. Continue to trend hemoglobin. Continue antibiotics: Per primary. Given nephrolithiasis, advised to maintain low oxalate diet and increased p.o. intake of fluid along with low-salt and low glucose diet. Pepito Steve MD [facility] [phone] [facility] 01-25-2025 Consult note Associated Order (s): IP CONSULT TO NEPHROLOGY [facility] Nephrology Consultation Note Reason for consultation: CKD 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: Vaginal bleeding History of Presenting Illness Patient is a 64 y.o. female with PMHx noted below who presented to [facility] ED on 01/22/2025 as transfer from [facility] with chief complaint listed above. Per report at [facility] ED pt found to be hypotensive and tachycardic. Hgb dropped from baseline ~ 12 to 8. Pt given 1 uPRBC, 2nd unit started but had to be stopped d/t fever. TVUS showed fluid filled endometrium with endometrial thickness of 12.[address] A/P with thickened bladder wall and heterogenous debris. Patient transferred to [facility] ED for AUTOMOTIVE SERVICE PROFESSIONAL evaluation. Patient admitted for observation to REFERENCE TEST CLERK service given acute blood loss anemia requiring transfusion. Started on Megace 20 mg BID. Urology consulted given abnormal bladder findings. Nephrology is consulted for evaluation and management of CKD3b, patient known to our group, follows outpatient with Dr Steve. Scr is currently 1.46, worsening from 1.37 prior. As high as 1.83 on admission. Patient's baseline creatinine appears to be 1.5-1.7. Home medications notable for fludrocortisone 0.2 mg in AM and 0.1 mg in PM, mycophenolate 500 mg BID, protonix Patient is not on Andrea inhibitors or ARB. No diuretics. Patient reports not using NSAIDS. No recent exposure to IV contrast. No relative hypotension noted. No signs of hemodynamic fluctuations. Imaging revealed mild bilateral hydronephrosis, a 4 mm stone in the lower R kidney, generalized bladder wall thickening Past Medical/Surgical History Medical History[1] Surgical History[2] Review of Systems All 12 systems reviewed and are negative except for what is mentioned in the HPI. Allergies Azithromycin and Seasonal Family History Family History[3] Social History Social History[4] Medications Prescriptions Prior to Admission[5] Current Medications: Scheduled Meds[6] Continuous Infusions:Continuous Meds[7] PRN Meds:PRN Meds[8] Physical Exam Vitals: 01/24/25 1705 01/24/25 2143 01/25/25 0109 01/25/25 0420 BP: 134/86 121/89 114/76 135/85 BP Location: Right arm Right arm Right arm Right arm Patient Position: Lying Sitting Lying Lying Pulse: 87 98 87 92 Resp: 14 19 16 16 Temp: 36.3 C (97.4 F) 36.8 C (98.3 F) 36.4 C (97.6 F) 36.4 C (97.6 F) TempSrc: Temporal Temporal Temporal Temporal SpO2: 95% 95% 98% 99% Weight: Height: Input / Output: 24 HR: Intake/Output Summary (Last 24 hours) at 01/25/2025 1024 Last data filed at 01/25/2025 0416 Gross per 24 hour Intake 1689 ml Output 400 ml Net 1289 ml IV Intake: P.O. (mL): 300 mL Dowd: [REMOVED] Urethral Catheter Bddpvdqd-zsy-Tgxpvx (mL): 1700 mL General: Comfortable appearing, cooperative to history and physical exam. Head: NCAT Eye: anicteric sclera, conjunctiva clear Mouth: mucus membrane semi-moist Neck: Supple Chest: B/L equal air entry, no crackles, no accessory muscles usage. CV: s1s2 heard RRR Abdomen: NT, non-distended, soft bowel sounds present, no palpable masses Extremities: no peripheral edema, no cyanosis or clubbing Skin: Warm, no rash Neurological: Oriented times three, Speech clear coherent Psychiatric: normal insight and judgement, good recall Data Recent Labs 01/23/25 0544 01/24/25 0520 01/25/25 0320 WBC 14.3* 10.2 7.1 HGB 8.6* 8.9* 10.2* HCT 26.3* 27.0* 31.2* MCV 80.7 82.1 81.5 PLT 227 245 353 Recent Labs 01/23/25 0544 01/24/25 0520 01/25/25 0320 NA 132* 135* 138 K 3.0* 3.5 4.3 CL 105 109* 110* CO2 22* 21* 20* GLUCOSE 99 94 131* MG 1.8 1.9 -- BUN 20 19 26* CREATININE 1.40* 1.37* 1.46* Albumin: No components found for: LABALBU Calcium: Lab Results Component Value Date CALCIUM 9.4 01/25/2025 Ionized Calcium: No components found for: IONCA Magnesium: Lab Results Component Value Date MG 1.9 01/24/2025 Phosphorus: No results found for: PHOS Imaging: reviewed Lab Results Component Value Date COLORU Yellow 01/22/2025 GLUCOSEU Normal 01/22/2025 UROBILINOGEN Normal 01/22/2025 Assessment 64 y.o. female with CKD stage 3b Mild bilateral hydronephrosis Nephrolithiasis NAGMA Anemia RECOMMENDATIONS: -Scr currently 1.46, around baseline of 1.5 Cont to monitor renal function trend -Need strict Is & Os -Daily standing weights -Avoid nephrotoxins and IV contrast dye -Dose all meds per current eGFR < 45 -Hgb noted, ok for prn transfusions for hgb < 7.0 -Mild metabolic acidosis noted, cont to monitor bicarb trend for now -Urology input noted, b/l hydro thought to be reflux related in setting of small capacity bladder/high pressure system PVR negative for retention -REFERENCE TEST CLERK input noted -IV abx for UTI per primary: on Zosyn -Outpatient nephrology follow up for ongoing nephrolithiasis management Maintain low oxalate diet and increased free water intake -Rest of management per primary team We will follow along closely. Thank you for asking us to participate in the management of your patient, please do not hesitate to contact me for any concerns regarding my recommendations as outlined above. I can be easily reached via Secure Chat SIGNATURE: Deepika Rivera PA-C PATIENT NAME: Eren Merchant DATE: January 25, 2025 Office [facility] [phone] Note not finalized until authorized by Attending physician. [1] Past Medical History: Diagnosis Date Arthritis Cancer (CMS/HCC) (HCC) Disease of thyroid gland [2] Past Surgical History: Procedure Laterality Date BACK SURGERY CHOLECYSTECTOMY COLON SURGERY THYMECTOMY stated per patient, for cancer removal [3] No family history on file. [4] Social History Socioeconomic History Marital status: Tobacco Use Smoking status: Never Smokeless tobacco: Never Vaping Use Vaping status: Never Used Substance and Sexual Activity Alcohol use: Never Drug use: Never Sexual activity: Not Currently Social Drivers of Health Financial Resource Strain: Low Risk (12/11/2024) Received from [facility] Overall Financial Resource Strain (CARDIA) Difficulty of Paying Living Expenses: Not hard at all Food Insecurity: No Food Insecurity (01/22/2025) Hunger Vital Sign Worried About Running Out of Food in the Last Year: Never true Ran Out of Food in the Last Year: Never true Transportation Needs: No Transportation Needs (01/22/2025) PRAPARE - Transportation Lack of Transportation (Medical): No Lack of Transportation (Non-Medical): No Physical Activity: Insufficiently Active (12/11/2024) Received from [facility] Exercise Vital Sign Days of Exercise per Week: 3 days Minutes of Exercise per Session: 30 min Stress: No Stress Concern Present (12/11/2024) Received from [facility] [employer] - Occupational Stress Questionnaire Feeling of Stress : Not at all Social Connections: Moderately Isolated (12/11/2024) Received from [facility] Social Connection and Isolation Panel [NHANES] Frequency of Communication with Friends and Family: More than three times a week Frequency of Social Gatherings with Friends and Family: Once a week Attends Anglican Services: 1 to 4 times per year Active Member of Clubs or Organizations: No Attends Club or Organization Meetings: Never Marital Status: Intimate Partner Violence: Not At Risk (01/22/2025) Humiliation, Afraid, Rape, and Kick questionnaire Fear of Current or Ex-Partner: No Emotionally Abused: No Physically Abused: No Sexually Abused: No Housing Stability: Low Risk (01/22/2025) Housing Stability Vital Sign Unable to Pay for Housing in the Last Year: No Number of Times Moved in the Last Year: 1 Homeless in the Last Year: No [5] Medications Prior to Admission Medication Sig Dispense Refill Last Dose/Taking aspirin 81 MG EC tablet Take 81 mg by mouth in the morning. 01/21/2025 at 9:00 AM Calcium Carb-Cholecalciferol 600-10 MG-MCG tablet Take 1 tablet by mouth in the morning and 1 tablet in the evening. 01/21/2025 at 9:00 AM carbidopa (Lodsyn) 25 MG tablet Take 25 mg by mouth 3 times daily. 01/21/2025 at 12:00 PM carbidopa-levodopa (Sinemet) 25-100 MG tablet Take 1 tablet by mouth 3 times daily. 01/21/2025 at 12:00 PM fludrocortisone (Florinef) 0.1 MG tablet Take 1 tablet (0.1 mg) by mouth 2 times daily. (Patient taking differently: Take 0.1 mg by mouth 2 times daily. 2 tabs in morning 1 tab in evening) 60 tablet 0 01/21/2025 at 9:00 AM levothyroxine (Synthroid, Levoxyl) 75 MCG tablet Take 75 mcg by mouth every morning (before breakfast). 01/21/2025 at 6:00 AM mycophenolate (Cellcept) 500 MG tablet Take 500 mg by mouth 2 times daily. 01/21/2025 at 9:00 AM pantoprazole (ProtoNix) 40 MG EC tablet Take 40 mg by mouth every morning (before breakfast). Do not crush, chew, or split. 01/21/2025 at 9:00 AM plecanatide (Trulance) tablet tablet Take 3 mg by mouth daily. 01/21/2025 at 9:00 AM amitriptyline (Elavil) 100 MG tablet Take 1 tablet (100 mg) by mouth Nightly. amitriptyline (Elavil) 75 MG tablet Take 75 mg by mouth Nightly. AVS from 03/03 from [facility] with Dr. Benitez states: discontinue the elavil for now - we will taper it down. Take 50 mg 4-5 days, then take 25 mg for 4-5 days then stop. (Patient taking differently: Take 100 mg by mouth Nightly. AVS from 03/03 from [facility] with Dr. Benitez states: discontinue the elavil for now - we will taper it down. Take 50 mg 4-5 days, then take 25 mg for 4-5 days then stop.) 01/20/2025 at 10:00 PM Apoaequorin (Prevagen) 10 MG capsule Take 10 mg by mouth daily. (Patient not taking: Reported on 04/07/2024) biotin 5000 MCG capsule Take 5,000 mcg by mouth daily. OTC per patient (Patient not taking: Reported on 01/22/2025) Not Taking carbidopa-levodopa CR (Sinemet CR) 25-100 MG ER tablet Take 1 tablet by mouth 3 times daily. Do not crush, chew, or split. docusate sodium 100 MG capsule Take 1 capsule (100 mg) by mouth 2 times daily. fluconazole (Diflucan) 200 MG tablet Take 200 mg by mouth daily. (Patient not taking: Reported on 01/22/2025) Not Taking ondansetron (Zofran) 4 MG tablet Take 4 mg by mouth every 8 hours as needed for nausea or vomiting. New prescription, unsure of times or dose (Patient not taking: Reported on 03/23/2024) More than a month [6] amitriptyline, 100 mg, Oral, Nightly carbidopa-levodopa CR, 1 tablet, Oral, TID docusate sodium, 100 mg, Oral, BID [Held by provider] fludrocortisone, 0.1 mg, Oral, Dinner [Held by provider] fludrocortisone, 0.2 mg, Oral, Daily levothyroxine, 75 mcg, Oral, qAM AC piperacillin-tazobactam, 4,500 mg, IntraVENous, q6h [7] [8] PRN medications: acetaminophen, ondansetron ODT OR ondansetron, polyethylene glycol (PEG) 3350 Cosigned by Pepito Steve MD at 01/25/2025 4:09 PM EDT Associated attestation - Pepito Steve MD - 01/25/2025 4:09 PM EDT Patient was seen and examined by me. Notes reviewed and plan discussed with the PA. Agree with above note except Any variance is noted below. Noted previous episodes of borderline blood pressure with systolic into the 90s. Status post IV fluid. Now the blood pressures are within normal range and acceptable. Renal function near baseline. Noted recommendations from urology. Noted no significant urine retention. Input from gynecology services noted. UA to be repeated as an outpatient. Continue to trend hemoglobin. Continue antibiotics: Per primary. Given nephrolithiasis, advised to maintain low oxalate diet and increased p.o. intake of fluid along with low-salt and low glucose diet. Pepito Steve MD [facility] [phone] Associated Order(s): IP CONSULT TO INTERNAL MEDICINE Hospital Medicine Consult Patient - Eren Merchant, Age - 64 y.o. - 1960 Room Number - H 5124 Consulting - Jennie Chang DO [id number] Date of Admission - 01/22/2025 3:42 AM Hospital Day - 0 Reason for Consult: Medical Management HISTORY OF PRESENT ILLNESS: Eren is a 64 y.o. female with a past medical history of parkinson's, thyroid cancer s/p surgical intervention, and overactive bladder with recurrent UTI. Patient developed heavy vaginal bleeding Saturday 01/20, she initially presented to [facility], was then transferred to [facility] for OB-Chief Gauger consult. Hgb baseline ~12, down to 8. She received 1.5 units of PRBC, second unit stopped for fever. CT A/P showed thickened bladder wall and bilateral hydronephrosis. Bleeding stopped on own this morning, before Megace was given. Chief Gauger planning for hysteroscopy D&C inpatient per patient request. Patient developed fever and dysuria, urology following already. UA positive for UTI, placed on Zosyn prior. Patient denies any flank pain, frequency, foul smelling urine, or pain with urination. Hospital medicine was consulted for further management of UTI. Past Medical History: Medical History[1] Past Surgical History: Surgical History[2] Medications: Scheduled Meds[3] Continuous Meds[4] PRN Meds[5] Allergies: Azithromycin and Seasonal Social History: Social History Socioeconomic History Marital [...] Social History Narrative Not on file Social Drivers of Health Financial Resource Strain: Low Risk (12/11/2024) Received from [facility] Overall Financial Resource Strain (CARDIA) Difficulty of Paying Living Expenses: Not hard at all Food Insecurity: No Food Insecurity (01/22/2025) Hunger Vital Sign Worried About Running Out of Food in the Last Year: Never true Ran Out of Food in the Last Year: Never true Transportation Needs: No Transportation Needs (01/22/2025) PRAPARE - Transportation Lack of Transportation (Medical): No Lack of Transportation (Non-Medical): No Physical Activity: Insufficiently Active (12/11/2024) Received from [facility] Exercise Vital Sign Days of Exercise per Week: 3 days Minutes of Exercise per Session: 30 min Stress: No Stress Concern Present (12/11/2024) Received from [facility] [employer] [place] [employer] - Occupational Stress Questionnaire Feeling of Stress : Not at all Social Connections: Moderately Isolated (12/11/2024) Received from [facility] Social Connection and Isolation Panel [NHANES] Frequency of Communication with Friends and Family: More than three times a week Frequency of Social Gatherings with Friends and Family: Once a week Attends Anglican Services: 1 to 4 times per year Active Member of Clubs or Organizations: No Attends Club or Organization Meetings: Never Marital Status: Intimate Partner Violence: Not At Risk (01/22/2025) Humiliation, Afraid, Rape, and Kick questionnaire Fear of Current or Ex-Partner: No Emotionally Abused: No Physically Abused: No Sexually Abused: No Housing Stability: Low Risk (01/22/2025) Housing Stability Vital Sign Unable to Pay for Housing in the Last Year: No Number of Times Moved in the Last Year: 1 Homeless in the Last Year: No Family History: Family History[6] REVIEW OF SYSTEMS: 10 point ROS obtained, as per HPI, otherwise NEG Physical Exam: Vitals: BP 140/83 (BP Location: Right arm, Patient Position: Lying) Pulse 105 Temp (!) 38.6 C (101.4 F) (Temporal) Resp 18 Ht 1.664 m (5' 5.5) Wt 76.7 kg (169 lb) LMP (LMP Unknown) SpO2 94% BMI 27.70 kg/m BMI Classification: Overweight (BMI 25.0-29.9) Pulse Ox: SpO2 Av.5 % Min: 92 % Max: 99 % Supplemental O2: General appearance: No apparent distress, appears stated age and cooperative with exam. HEENT: Normal cephalic, atraumatic without obvious deformity. Pupils equal, round, and reactive to light. Extra ocular muscles intact. Conjunctivae/corneas clear. Neck: Supple, with full range of motion. No jugular venous distention. Trachea midline. No lymphadenopathy. Respiratory: Normal respiratory effort. Clear to auscultation, bilaterally without Rales/Wheezes/Rhonchi. Cardiovascular: Regular rate and rhythm with normal S1/S2 without murmurs, rubs or gallops. Abdomen: Soft, non-tender, non-distended with normal bowel sounds. No rebound or guarding. Musculoskeletal: No clubbing, cyanosis or edema bilaterally. Full range of motion without deformity, +2 peripheral pulses in all extremities. Skin: Skin color, texture, turgor normal. No rashes or lesions. Neurologic: Neurovascularly intact without any focal sensory/motor deficits. Cranial nerves: II-XII intact, grossly non-focal. Psychiatric: Alert and oriented, thought content appropriate, normal insight. LABS: Recent Results (from the past 24 hours) ECG 12 lead Collection Time: 01/22/25 4:03 AM Result Value Ref Range Heart Rate 96 bpm QRSD Interval 88 ms QT Interval 0 ms QTC Interval 0 ms P Crawley -1 degrees QRS Crawley -25 degrees T Wave Crawley -49 degrees MN Interval 142 ms Type and Screen Collection Time: 01/22/25 4:09 AM Result Value Ref Range ABO Grouping O Antibody Screen NEG Rh Type POS CBC auto differential Collection Time: 01/22/25 4:09 AM Result Value Ref Range Auto WBC 17.0 (H) 3.6 - 10.7 10*3/uL RBC 3.15 (L) 3.80 - 5.20 10*6/uL Hemoglobin 8.5 (L) 11.7 - 16.0 g/dL Hematocrit 26.3 (L) 35.0 - 47.0 % MCV 83.5 77.0 - 99.0 fL MCH 27.0 26.0 - 34.0 pg MCHC 32.3 30.5 - 36.0 % RDW 13.8 11.5 - 15.0 % Platelets 221 140 - 440 10*3/uL MPV 10.0 9.0 - 12.7 fL Basic metabolic panel Collection Time: 01/22/25 4:09 AM Result Value Ref Range SODIUM 135 (L) 136 - 145 mmol/L POTASSIUM 3.6 3.5 - 5.1 mmol/L CHLORIDE 106 98 - 107 mmol/L CARBON DIOXIDE 21 (L) 23 - 31 mmol/L UREA NITROGEN 28 (H) 9 - 23 mg/dL CREATININE 1.83 (H) 0.57 - 1.11 mg/dL GLUCOSE 119 (H) 82 - 115 mg/dL CALCIUM 8.4 (L) 8.8 - 10.0 mg/dL ANION GAP 8 3 - 13 mmol/L eGFR 30.1 (L) >60.0 mL/min/1.73m*2 Protime-INR Collection Time: 01/22/25 4:09 AM Result Value Ref Range PROTHROMBIN TIME 12.4 (H) 9.0 - 12.0 s INR 1.2 (H) 0.9 - 1.1 MANUAL DIFFERENTIAL (CELLAVISION) Collection Time: 01/22/25 4:09 AM Result Value Ref Range RBC Morphology abnormal Poikilocytes Slight (A) (none) Ovalocytes Slight (A) (none) Neutrophils % 89 (H) 38 - 82 % Bands % 3 (H) <=0 % Lymphocytes % 2 (L) 15 - 45 % Monocytes % 6 5 - 13 % Absolute Neutrophil Count 15.6 (H) 1.8 - 7.5 10*3/uL Bands Absolute 0.5 (H) <=0.0 10*3/uL Lymphocytes Absolute 0.3 (L) 1.0 - 4.3 10*3/uL Monocytes Absolute 1.0 (H) 0.0 - 0.9 10*3/uL Neutrophils Manual 88 Lymphocytes Manual 2 Monocytes Manual 6 Eosinophils Manual Basophils Manual Bands Manual 3 Metamyelocytes Manual Myelocytes Manual Promyelocytes Manual Blasts Manual Atypical Lymphocytes Manual Unclassified Cells, Manual CBC Collection Time: 01/22/25 8:09 PM Result Value Ref Range Auto WBC 15.4 (H) 3.6 - 10.7 10*3/uL RBC 3.27 (L) 3.80 - 5.20 10*6/uL Hemoglobin 8.9 (L) 11.7 - 16.0 g/dL Hematocrit 26.5 (L) 35.0 - 47.0 % MCV 81.0 77.0 - 99.0 fL MCH 27.2 26.0 - 34.0 pg MCHC 33.6 30.5 - 36.0 % RDW 14.0 11.5 - 15.0 % Platelets 221 140 - 440 10*3/uL MPV 10.3 9.0 - 12.7 fL Lactic acid with reflex Collection Time: 01/22/25 8:09 PM Result Value Ref Range LACTIC ACID 0.7 0.5 - 2.2 mmol/L Blood culture Site #1 - Suspected Infection Collection Time: 01/22/25 8:14 PM Specimen: Blood, Venous Result Value Ref Range Blood Culture Blood culture incubation started Blood culture Site #2 - Suspected Infection Collection Time: 01/22/25 8:17 PM Specimen: Blood, Venous Result Value Ref Range Blood Culture Blood culture incubation started Complete Urinalysis with reflex to Culture Collection Time: 01/22/25 8:24 PM Result Value Ref Range Color, Urine Yellow Lt. Yellow Clarity, Urine Extra Turbid (A) Clear pH, Urine 7.5 5.0 - 8.0 pH Leukocytes, Urine 500 (A) Negative Loren/uL Nitrite, Urine Negative Negative Protein, Urine 50 (A) Negative mg/dL Glucose, Urine Normal Normal (<70) mg/dL Bilirubin, Urine Negative Negative mg/dL Ketones, Urine Negative Negative mg/dL Urobilinogen, Urine Normal Normal (0-1) mg/dL Blood, Urine 1.0 (A) Negative mg/dL RBC, Urine 51-100 (A) 0 - 2 /HPF WBC, Urine >100 (A) 0 - 5 /HPF Squamous Epithelial, Urine Negative 3 - 5 /HPF Bacteria, Urine Few (A) Negative /HPF WBC Clumps, Urine Many (A) Negative /HPF SPECIFIC GRAVITY OF URINE (NUMERIC) 1.011 1.005 - 1.030 Urine Hold Cup Collection Time: 01/22/25 8:24 PM Result Value Ref Range Extra Tube Hold for add-ons. Urine Culture: Results for orders placed or performed during the hospital encounter of 03/04/24 Urine culture Collection Time: 03/05/24 1:44 PM Specimen: Urine, Clean Catch Result Value Ref Range Urine Culture No growth (<1,000 CFU/mL) IMAGING: See report Assessment Data: (CAT1) Reviewed 3 or more notes from different specialty or health system (each=1). (CAT1) Reviewed 3 or more labs/studies ordered by another provider not previously counted (each=1, panels count as 1). (CAT1) Ordered 3 or more new labs and/or studies (each=1, panels count as 1). (LOW: 2x CAT1 or independent historian MOD: 3x CAT1 or 1x CAT3 EXTENSIVE: 3x CAT1 and 1x CAT3) Acute, acute on chronic, unstable/uncontrolled chronic problems/diagnoses: Urinary tract infection Vaginal bleeding Bilateral hydronephrosis Stable chronic problems affecting care, new non-acute diagnoses: Parkinson's Constipation Plan As a result of the above findings & factors, the following mgmt was pursued: - continue Zosyn, narrow with culture results - s/p 2L IVF - dowd placed per urology orders - daily labs, trend hemoglobin, monitor for cont. bleeding - bowel regimen - continue home medications - am labs, replace lytes prn - PT/OT/CM/SW - delirium precautions: increase activity and limit nighttime disturbances - DVT prophylaxis:ambulation Complexity: Acute illness or injury posing a threat to life or body function (HIGH). Risk: Admission to hospital-level care was considered or occurred (HIGH). Advance Directive: Full Code Anticipated Discharge - Date - TBD - Location - Home - Pending the following - drying room attendant intervention Total time spent (which include face to face and non face to face encounters) : greater than 35 minutes Extended Emergency Contact Information Primary Emergency Contact: Shelton Merchant Mobile Relation: Son Preferred language: Colombian Venture Capitalist needed? No Secondary Emergency Contact: Clementina Merchant Mobile Relation: [id number] Candelaria Pineda NP Division of Hospitalist Medicine Inpatient Medical Services/[facility] [place] [1] Past Medical History: Diagnosis Date Arthritis Cancer (CMS/HCC) (HCC) Disease of thyroid gland [2] Past Surgical History: Procedure Laterality Date BACK SURGERY CHOLECYSTECTOMY COLON SURGERY THYMECTOMY stated per patient, for cancer removal [3] carbidopa-levodopa CR, 1 tablet, Oral, TID lactated ringers, 1,000 mL, IntraVENous, Once [START ON 01/23/2025] levothyroxine, 75 mcg, Oral, qAM AC megestrol, 20 mg, Oral, BID WC [START ON 01/23/2025] piperacillin-tazobactam, 4,500 mg, IntraVENous, q8h [START ON 01/23/2025] vancomycin, 750 mg, IntraVENous, q24h vancomycin, 1,500 mg, IntraVENous, Once [4] [5] PRN medications: ondansetron ODT OR ondansetron, polyethylene glycol (PEG) 3350 [6] No family history on file. Cosigned by Sam Machado MD at 01/23/2025 7:18 AM EDT Associated Order(s): IP CONSULT TO UROLOGY Urology Consult 01/22/2025 HISTORY OF PRESENT ILLNESS: The patient is a 64 y.o. female, known to our service, with past medical history as listed below and significant for CKD, kidney stones, gross hematuria, and OAB s/p interstim and botox trial. She is here for vaginal bleeding. Workup included noting abnormal bladder and ureteral imaging detailed below. According to the patient she had vaginal bleeding that began Wednesday and has since subsided. The patient reports she has followed with urogynecology for LUTS with placement of neurostim and bladder botox, both without resolution of symptoms. She also has a history of kidney stones in the past 1-2 years. She currently reports suprapubic pain that she states has been constant for years but has not gotten acutely worse. She denies nausea/vomiting, current fevers/chills, and shortness of breath. On evaluation, she is AF and HDS. Labs and imaging are outlined below. Urology consulted for evaluation and management. ED/Hospital workup Cr 1.83 (BL ~1.5) ; WBC 17; HGB 8.5; no blood thinners; CT ([facility]) - thickened bladder wall with heterogenous echogenic debris PAST MEDICAL HISTORY: Medical History[1] PAST SURGICAL HISTORY: Surgical History[2] ALLERGIES: Allergies[3] HOME MEDICATIONS: Prescriptions Prior to Admission[4] FAMILY HISTORY: Family History[5] Social History: Tobacco Use History[6] Social History Substance and Sexual Activity Alcohol Use Never ROS: Constitutional: see HPI for chills and fevers HEENT: no blurry vision or eye redness Respiratory: negative for hemoptysis and shortness of breath Cardiovascular: negative for dyspnea and syncope Gastrointestinal: negative for jaundice, see HPI regarding nausea and vomiting Genitourinary: see HPI Hematologic/lymphatic: negative for bleeding Integumentary: no new bruises or lesions Musculoskeletal:negative for muscle weakness Neurological: negative for coordination problems and seizures All other systems negative PHYSICAL EXAM: VITALS: Vitals: 01/22/25 0352 01/22/25 0622 01/22/25 0804 BP: 103/57 93/57 128/68 Pulse: 102 99 90 Resp: 18 18 18 Temp: 37.7 C (99.9 F) TempSrc: Oral SpO2: 94% 99% 98% Weight: 169 lb (76.7 kg) Height: 5' 5.5 (1.664 m) General: Alert, in no acute distress Head: Normocephalic, atraumatic Respiratory: no respiratory distress, normal effort, no audible wheezes Cardiovascular: regular pulse and no cyanosis Abdomen: soft, non distended, non tender : No R. flank TTP, No L. flank TTP, and + suprapubic TTP DATA: LABS: BMP: Lab Results Component Value Date NA 135 (L) 01/22/2025 K 3.6 01/22/2025 CL 106 01/22/2025 CO2 21 (L) 01/22/2025 BUN 28 (H) 01/22/2025 CREATININE 1.83 (H) 01/22/2025 CALCIUM 8.4 (L) 01/22/2025 GLUCOSE 119 (H) 01/22/2025 CBC: Lab Results Component Value Date WBC 17.0 (H) 01/22/2025 HGB 8.5 (L) 01/22/2025 HCT 26.3 (L) 01/22/2025 MCV 83.5 01/22/2025 PLT 221 01/22/2025 RADIOLOGY: No orders to display IMPRESSION: 64 y.o. female with notable hx of CKD, kidney stones, gross hematuria, and OAB s/p interstim and botox trial. Presents with vaginal bleeding and consulted for outside imaging report of possible bladder wall thickening, heterogenous echogenic debris, and bilateral hydronephrosis WBC 17 Hgb 8.5 Cr 1.83 (bl ~1.5) PLAN: - Outside images read suggest bladder wall thickening and bilateral hydronephrosis - Will obtain CT abd/pel since unable to see outside images Pyelograms - Pending CT results, can consider possible cystoscopy and retrograde pyelogram - OB following, appreciate recs - Possible hysteroscopy D&C. If desired, can attempt coordination of hysteroscopy and cystoscopy while inpatient - Due to reported hydro, will get PVR. If retaining significant volume, recommend dowd catheter - Remainder of care per primary - Please reach out to urology with any questions or concerns Thank you for allowing me to participate in the care of your patient Marlon Viramontes MD PGY-1 Urology 01/22/25 8:57 AM [1] Past Medical History: Diagnosis Date Arthritis Cancer (CMS/HCC) (HCC) Disease of thyroid gland [2] Past Surgical History: Procedure Laterality Date BACK SURGERY CHOLECYSTECTOMY COLON SURGERY THYMECTOMY stated per patient, for cancer removal [3] Allergies Allergen Reactions Azithromycin Diarrhea Severe diarrhea Seasonal Other Stuffy/runny nose [4] Medications Prior to Admission Medication Sig Dispense Refill Last Dose/Taking amitriptyline (Elavil) 75 MG tablet Take 75 mg by mouth Nightly. AVS from 03/03 from [facility] with Dr. Benitez states: discontinue the elavil for now - we will taper it down. Take 50 mg 4-5 days, then take 25 mg for 4-5 days then stop. (Patient not taking: Reported on 04/07/2024) Apoaequorin (Prevagen) 10 MG capsule Take 10 mg by mouth daily. (Patient not taking: Reported on 04/07/2024) aspirin 81 MG EC tablet Take 81 mg by mouth in the morning. biotin 5000 MCG capsule Take 5,000 mcg by mouth daily. OTC per patient Calcium Carb-Cholecalciferol 600-10 MG-MCG tablet Take 1 tablet by mouth in the morning and 1 tablet in the evening. fluconazole (Diflucan) 200 MG tablet Take 200 mg by mouth daily. fludrocortisone (Florinef) 0.1 MG tablet Take 1 tablet (0.1 mg) by mouth 2 times daily. 60 tablet 0 levothyroxine (Synthroid, Levoxyl) 75 MCG tablet Take 75 mcg by mouth every morning (before breakfast). mycophenolate (Cellcept) 500 MG tablet Take 1,000 mg by mouth 2 times daily. 1000 mg in morning and 500 at night per patient ondansetron (Zofran) 4 MG tablet Take 4 mg by mouth every 8 hours as needed for nausea or vomiting. New prescription, unsure of times or dose (Patient not taking: Reported on 04/07/2024) [5] No family history on file. [6] Social History Tobacco Use Smoking Status Never Smokeless Tobacco Never Cosigned by Ricki Ceballos MD at 01/23/2025 12:44 PM EDT Associated attestation - Ricki Ceballos MD - 01/23/2025 12:44 PM EDT I saw and evaluated the patient, participating in the alberts portions of the service. I reviewed the resident s note. I agree with the resident s findings and plan. Thickened bladder, MANJIT on CKD and bilateral hydronephrosis, suggestive of neurogenic bladder, high pressure. She can go home with catheter, repeat renal US and void trial outpatient. She may benefit from UDS and anticholinergic vs botox Ricki Ceballos MD Associated Order(s): IP CONSULT TO LOAN INTERVIEWER Images from the original note were not included. AUTOMOTIVE SERVICE PROFESSIONAL Consult Please page the [facility] OBGYN Call RES group via Secure Chat for any questions or concerns. Patient Name: Eren Merchant Patient : 1960 Room/Bed: [facility] Admission Date/Time: 01/22/2025 3:42 AM Primary Care Physician: Priyanka Smith HPI: Eren Merchant is a 64 y.o. female presenting as transfer from [facility] for heavy vaginal bleeding. She is postmenopausal and her last LMP was 12 years ago. She states her bleeding started Wednesday morning and has gone through 3-4 packs of maxi pads since. She received 1 unit of blood and had to stop the second unit 2/2 spiking a fever. She states her bleeding has slowed down and only has noticed blood in the bedside commode with wiping. She denies being on blood thinners. Denies abdominal pain and pelvic pain Medical Hx: Parkinson's, hx thymic cancer treated with surgery, overactive bladder Surgical Hx: Back surgery, cholecystectomy, thymectomy, cystoscopy REVIEW OF SYSTEMS: A minimum of an eleven point review of systems was completed. Review of Systems Constitutional: Negative for chills and fever. Respiratory: Negative for shortness of breath. Cardiovascular: Negative for chest pain. Gastrointestinal: Negative for abdominal pain, constipation, diarrhea, nausea and vomiting. Genitourinary: Positive for vaginal bleeding. Negative for dysuria, pelvic pain, vaginal discharge and vaginal pain. Social History: TOBACCO: reports that she has never smoked. She has never used smokeless tobacco. ETOH: reports no history of alcohol use. GYNECOLOGICAL HISTORY: Menstrual History: postmenopausal. Pap History: Hx of abnormal paps in the past with colposcopy, denies LEEP/CKC PAST MEDICAL HISTORY: Past Medical History Diagnosis Date Arthritis Cancer (CMS/HCC) (HCC) Disease of thyroid gland PAST SURGICAL HISTORY: Past Surgical History Procedure Laterality Date BACK SURGERY CHOLECYSTECTOMY COLON SURGERY THYMECTOMY stated per patient, for cancer removal ALLERGIES: Allergen Reactions Azithromycin Diarrhea Severe diarrhea Seasonal Other Stuffy/runny nose MEDICATIONS: Current Outpatient Medications: amitriptyline (Elavil) 75 MG tablet, Take 75 mg by mouth Nightly. AVS from 03/03 from [facility] with Dr. Benitez states: discontinue the elavil for now - we will taper it down. Take 50 mg 4-5 days, then take 25 mg for 4-5 days then stop. (Patient not taking: Reported on 04/07/2024), Disp: , Rfl: Apoaequorin (Prevagen) 10 MG capsule, Take 10 mg by mouth daily. (Patient not taking: Reported on 04/07/2024), Disp: , Rfl: aspirin 81 MG EC tablet, Take 81 mg by mouth in the morning., Disp: , Rfl: biotin 5000 MCG capsule, Take 5,000 mcg by mouth daily. OTC per patient, Disp: , Rfl: Calcium Carb-Cholecalciferol 600-10 MG-MCG tablet, Take 1 tablet by mouth in the morning and 1 tablet in the evening., Disp: , Rfl: fluconazole (Diflucan) 200 MG tablet, Take 200 mg by mouth daily., Disp: , Rfl: fludrocortisone (Florinef) 0.1 MG tablet, Take 1 tablet (0.1 mg) by mouth 2 times daily., Disp: 60 tablet, Rfl: 0 levothyroxine (Synthroid, Levoxyl) 75 MCG tablet, Take 75 mcg by mouth every morning (before breakfast)., Disp: , Rfl: mycophenolate (Cellcept) 500 MG tablet, Take 1,000 mg by mouth 2 times daily. 1000 mg in morning and 500 at night per patient, Disp: , Rfl: ondansetron (Zofran) 4 MG tablet, Take 4 mg by mouth every 8 hours as needed for nausea or vomiting. New prescription, unsure of times or dose (Patient not taking: Reported on 04/07/2024), Disp: , Rfl: FAMILY HISTORY: Family History of Breast, Ovarian, Colon or Uterine Cancer: No family history is not on file. SOCIAL HISTORY: Social Connections: Moderately Isolated (12/11/2024) Received from [facility] Social Connection and Isolation Panel [NHANES] Frequency of Communication with Friends and Family: More than three times a week Frequency of Social Gatherings with Friends and Family: Once a week Attends Anglican Services: 1 to 4 times per year Active Member of Clubs or Organizations: No Attends Club or Organization Meetings: Never Marital Status: Medications: Current Inpatient [Current Medications] [Current Medications] No current facility-administered medications for this encounter. Current Outpatient Medications Medication Sig Dispense Refill amitriptyline (Elavil) 75 MG tablet Take 75 mg by mouth Nightly. AVS from 03/03 from [facility] with Dr. Benitez states: discontinue the elavil for now - we will taper it down. Take 50 mg 4-5 days, then take 25 mg for 4-5 days then stop. (Patient not taking: Reported on 04/07/2024) Apoaequorin (Prevagen) 10 MG capsule Take 10 mg by mouth daily. (Patient not taking: Reported on 04/07/2024) aspirin 81 MG EC tablet Take 81 mg by mouth in the morning. biotin 5000 MCG capsule Take 5,000 mcg by mouth daily. OTC per patient Calcium Carb-Cholecalciferol 600-10 MG-MCG tablet Take 1 tablet by mouth in the morning and 1 tablet in the evening. fluconazole (Diflucan) 200 MG tablet Take 200 mg by mouth daily. fludrocortisone (Florinef) 0.1 MG tablet Take 1 tablet (0.1 mg) by mouth 2 times daily. 60 tablet 0 levothyroxine (Synthroid, Levoxyl) 75 MCG tablet Take 75 mcg by mouth every morning (before breakfast). mycophenolate (Cellcept) 500 MG tablet Take 1,000 mg by mouth 2 times daily. 1000 mg in morning and 500 at night per patient ondansetron (Zofran) 4 MG tablet Take 4 mg by mouth every 8 hours as needed for nausea or vomiting. New prescription, unsure of times or dose (Patient not taking: Reported on 04/07/2024) VITALS: BP 93/57 Pulse 99 Temp 37.7 C (99.9 F) (Oral) Resp 18 Ht 5' 5.5 (1.664 m) Wt 169 lb (76.7 kg) LMP (LMP Unknown) SpO2 99% BMI 27.70 kg/m PHYSICAL EXAM: Physical Exam Vitals reviewed. Constitutional: General: She is not in acute distress. Appearance: Normal appearance. She is not ill-appearing, toxic-appearing or diaphoretic. HENT: Head: Normocephalic and atraumatic. Cardiovascular: Rate and Rhythm: Tachycardia present. Pulmonary: Effort: Pulmonary effort is normal. No respiratory distress. Abdominal: General: There is no distension. Palpations: Abdomen is soft. Tenderness: There is no abdominal tenderness. There is no guarding or rebound. Genitourinary: Vagina: No bleeding. Cervix: No cervical bleeding. Comments: Visually stenotic cervix without active bleeding from the cervical os, no blood pooling in vaginal vault. Cervix is flush with posterior vaginal wall. Atrophic vaginal tissue Musculoskeletal: Cervical back: Normal range of motion. Skin: General: Skin is warm and dry. Neurological: Mental Status: She is alert and oriented to person, place, and time. Psychiatric: Mood and Affect: Mood normal. Behavior: Behavior normal. LAB RESULTS: Lab Results Component Value Date WBC 17.0 (H) 01/22/2025 HGB 8.5 (L) 01/22/2025 HCT 26.3 (L) 01/22/2025 MCV 83.5 01/22/2025 PLT 221 01/22/2025 Lab Results Component Value Date NA 135 (L) 01/22/2025 K 3.6 01/22/2025 CL 106 01/22/2025 CO2 21 (L) 01/22/2025 BUN 28 (H) 01/22/2025 CREATININE 1.83 (H) 01/22/2025 GLUCOSE 119 (H) 01/22/2025 CALCIUM 8.4 (L) 01/22/2025 DIAGNOSTICS: ECG 12 lead Result Date: 01/22/2025 Sinus rhythm Ventricular premature complex Borderline left axis deviation Low voltage, precordial leads Borderline T abnormalities, diffuse leads ASSESSMENT & PLAN: Eren Merchant is a 64 y.o. female presenting as transfer from OSH for heavy vaginal bleeding Vaginal Bleeding - Patient presents from OSH for 2 days of heavy vaginal bleeding, soaking through 3-4 packs of maxi pads - Postmenopausal since 2002 with hx of abnormal Paps and colposcopy. Denies LEEP/CKC procedures - S/p 1 unit of PRBCs but could not received the 2nd unit due to fever - En route to [facility] ED, patient became hypotensive and was given additional 500cc fluid bolus - Patient has been slightly tachycardic in the ED but otherwise vitally stable - Hgb on admission 8.5 - TVUS obtained from outside facility reviewed in patient room. Fluid filled endometrial cavity with a thickness of 12.1mm, including the fluid. Possible left hydrosalpinx vs dilated ureter. Fluid filled structure in midline of pelvis that may represent urinary bladder in which there is heterogenous echogenic debris. - Speculum exam shows visually stenotic cervix without active bleeding from the cervical os, no blood pooling in vaginal vault. Cervix is flush with posterior vaginal wall. Atrophic vaginal tissue - Plan to admit patient to monitor bleeding and treat with Megace 20mg BID - Urology consult for US and CT findings of thickened bladder wall with heterogenous echogenic debris, recommended urology evaluation Patient Active Problem List Diagnosis Esophageal dysmotility Hyponatremia Chronic interstitial cystitis ILD (interstitial lung disease) (HCC) Lung nodules NSIP (nonspecific interstitial pneumonitis) (HCC) Stage 3a chronic kidney disease (HCC) Post-menopausal bleeding Acquired hypothyroidism Hydronephrosis with urinary obstruction due to ureteral calculus Vaginal bleeding 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 Patient presents with Vaginal Bleeding Transfer from [facility] for a REFERENCE TEST CLERK/ONC consult. Started to bleed heavily Wednesday morning going thru approx 70 maxi pads. +clots. Received 1 unit of PRBCs @ [facility] but didn't receive full second unit d/t increased temperature. Per EMS she became hypotensive for 90s/50s and was given a 500cc bolus. Pt has no other complaints, just the bleeding. 1. Vaginal bleeding Plan discussed with Dr. Chang, who is agreeable. Please page the [facility] OBGYN Call RES group via Secure Chat for any questions or concerns. Tonny Mendoza DO 01/22/2025, 6:41 AM Cosigned by Jennie Chang DO at 01/22/2025 6:50 AM EDT Associated attestation - Jennie Chang DO - 01/22/2025 6:50 AM EDT See H&P for attestation. documented in this encounter [facility] 01-25-2025 Note Hospitalist Progress Note - [facility] - [employer] [facility] 01/25/2025 8:26 AM [phone]: Please page me for patient care issues. [phone]: Please page [facility] Hospitalist - [facility] for any issues. Subjective and Objective: Admit Date: 01/22/2025 PCP: Priyanka Smith 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 Patient presents with Vaginal Bleeding Transfer from [facility] for a REFERENCE TEST CLERK/ONC consult. Started to bleed heavily Wednesday morning going thru approx 70 maxi pads. +clots. Received 1 unit of PRBCs @ [facility] but didn't receive full second unit d/t increased temperature. Per EMS she became hypotensive for 90s/50s and was given a 500cc bolus. Pt has no other complaints, just the bleeding. Adult diet Regular Dietary Orders (From admission, onward) Start Ordered 01/24/251723 Adult diet Regular Diet effective now Question: Diet type Answer: Regular 01/24/25 1723 I/O last 3 completed shifts: In: 1689 (22 mL/kg) [P.O.:550; I.V.:1037 (13.5 mL/kg); IV Piggyback:102] Out: 2100 (27.4 mL/kg) [Urine:2100 (0.8 mL/kg/hr)] Weight: 76.7 kg @IODETAILS@ @[email or web address]@ Medications: Continuous Meds[1] Scheduled Meds[2] Recent Labs 01/23/25 0544 01/24/25 0501/25/25 0320 WBC 14.3* 10.2 7.1 HGB 8.6* 8.9* 10.2* PLT 227 245 353 Recent Labs 01/23/25 0544 01/24/25 0501/25/25 0320 NA 132* 135* 138 K 3.0* 3.5 4.3 CL 105 109* 110* CO2 22* 21* 20* BUN 20 19 26* CREATININE 1.40* 1.37* 1.46* GLUCOSE 99 94 131* No results for input(s): AST, ALT, BILITOT, ALKPHOS in the last 72 hours. No lab exists for component: ALB No results found for: TRIG, HDL, LDLCALC, CHOL No results found for: PHART, PO2ART, BAX8NAZ No results for input(s): INR in the last 72 hours. No results for input(s): CKTOTAL, CKMB, TROPONINI in the last 72 hours. No results for input(s): DDIMER in the last 72 hours. No results found for: HGBA1C No results found for: TSH Urine Culture: Results for orders placed or performed during the hospital encounter of 01/22/25 Urine culture Collection Time: 01/22/25 8:27 PM Specimen: Urine, Clean Catch Result Value Ref Range Urine Culture >100,000 CFU/mL Escherichia coli (A) Urine Culture >100,000 CFU/mL Streptococcus agalactiae (Group B) (A) Objective: Vitals: BP 135/85 (BP Location: Right arm, Patient Position: Lying) Pulse 92 Temp 36.4 ?C (97.6 ?F) (Temporal) Resp 16 Ht 5' 5.5 (1.664 m) Wt 169 lb (76.7 kg) LMP (LMP Unknown) SpO2 99% BMI 27.70 kg/m? Pulse Ox: SpO2 Av.4 % Min: 94 % Max: 100 % Supplemental O2: Past 24 hours events: GENERAL: in bed without acute distress CARDIOVASCULAR: RRR no rubs RESPIRATORY: good breath sounds throughout ABDOMEN: non-tender, no acute abd pain EXTREMITIES: no open wounds ANATOMY/TUBES/LINES: N/A Running Summary, Assessment, and Plan Eren is a 64 y.o. female with a past medical history of parkinson's, thyroid cancer s/p surgical intervention, and overactive bladder with recurrent UTI. Patient developed heavy vaginal bleeding Saturday 01/20, she initially presented to [facility] ED, was then transferred to [facility] for OB-Chief Gauger consult. Hgb baseline ~12, down to 8. She received 1.5 units of PRBC, second unit stopped for fever. CT A/P showed thickened bladder wall and bilateral hydronephrosis. Bleeding stopped on own this morning, before Megace was given. Chief Gauger planning for hysteroscopy D&C inpatient per patient request. Patient developed fever and dysuria, urology following already. UA positive for UTI, placed on Zosyn prior. Patient denies any flank pain, frequency, foul smelling urine, or pain with urination. Hospital medicine was consulted for further management of UTI. Urine culture growing E Coli, Vanc stopped. On 01/24/2025, underwent hysteroscopy which found cervical stenosis, biopsy obtained but D&C was not performed. Chief Gauger does not think uterus was cause of bleeding. Cystoscopy was also performed with bilateral retrograde pyelograms completed by Urology. Dowd also removedx 01/24. Acute, acute on chronic, unstable/uncontrolled chronic problems/diagnoses: Urinary tract infection Severe sepsis 2/2 UTI Vaginal bleeding, suspect 2/2 recently passed kidney stone Bilateral hydronephrosis Hyponatremia Hypokalemia Iron deficiency anemia Metabolic acidosis CKD 3 (baseline Cr ~ 1.6 - 1.7) Stable chronic problems affecting care, new non-acute diagnoses: Parkinson's Constipation Esophageal dysmotility Interstitial lung disease and Nonspecific Interstitial Pneumonia (NSIP) on Cellcept As a result of the above findings & factors, the following mgmt was pursued: - HR 92 with BP 135/85 - IV Vanc 01/22 - 01/24 - IV Zosyn 01/22 - 01/25 - IV Rocephin 01/25 - present - Urine culture growing E Coli - 2nd urine culture finalized E Coli and Group B Strep - Procal 2.9 - Anemia workup showing VALDEZ, ferritin elevated in acute infection, will prescribe Iron to take a (more content not included)... [facility] 01-25-2025 Note UROLOGY PROGRESS NOTE PATIENT NAME: Eren Merchant DATE OF : 1960 ADMISSION DATE: 01/22/2025 TODAY'S DATE: 01/25/2025 Subjective NAEON AF and HDS Denies any pain Discussed negative OR findings with patient this morning on rounds Objective VS: BP 135/85 (BP Location: Right arm, Patient Position: Lying) Pulse 92 Temp 36.4 ?C (97.6 ?F) (Temporal) Resp 16 Ht 5' 5.5 (1.664 m) Wt 169 lb (76.7 kg) LMP (LMP Unknown) SpO2 99% BMI 27.70 kg/m? I & O - 24hr: I/O last 3 completed shifts: In: 1689 (22 mL/kg) [P.O.:550; I.V.:1037 (13.5 mL/kg); IV Piggyback:102] Out: 2100 (27.4 mL/kg) [Urine:2100 (0.8 mL/kg/hr)] Weight: 76.7 kg No intake/output data recorded. Physical Exam: General: Neck: Resp: Abdomen: No acute distress Supple Normal effort, no respiratory distress Soft, non-tender, nondistended : L flank NTTP, R flank NTTP, and no suprapubic tenderness Labs and Imaging Studies Labs: CBC: Lab Results Component Value Date WBC 7.1 01/25/2025 HGB 10.2 (L) 01/25/2025 HCT 31.2 (L) 01/25/2025 MCV 81.5 01/25/2025 PLT 353 01/25/2025 BMP: Lab Results Component Value Date GLUCOSE 131 (H) 01/25/2025 CALCIUM 9.4 01/25/2025 NA 138 01/25/2025 K 4.3 01/25/2025 CO2 20 (L) 01/25/2025 CL 110 (H) 01/25/2025 BUN 26 (H) 01/25/2025 CREATININE 1.46 (H) 01/25/2025 Imaging Studies: Reviewed Assessment and Plan ASSESSMENT: 64 y.o. female with hx of b/l hydro from outside hospital imaging - 1 Day Post-Op C&P - small capacity bladder, likely high pressure system - mandi hydro likely reflux - friable bladder mucosa - no tumors - dowd removed post-operatively WBC 7.1 from 10.2 Hgb 10.2 from 8.9 Cr 1.46 from 1.37 UA 01/22: +LE, WBC/RBC, few bacteria Ucx 01/22: E. Coli, S. Agalactiae Bcx 01/22: negative Abx: Zosyn CT 01/22: mild b/l hydro. 4mm stone R lower kidney. Bladder wall thickening PVR: 49cc PLAN: - Ok for diet - Continue to monitor labs and VS while inpatient - agree w/ IV abx for UTI - outpatient she may benefit from UDS - follow up outpatient w/ urogynecology, next appt 02/06 per discussion w/ pt this morning - remainder of care per primary team - urology will sign off at this time - please re-engage w/ any questions or concerns Jay Black MD PGY-3 Urology 01/25/25 7:03 AM The history and physical has been reviewed. The pertinent findings from the history of present illness, past medical history, family history, social history, review of systems have been noted and confirmed that are unchanged. Discussed with the urology resident. Agree with assessment and plan [facility] 01-25-2025 Note REFERENCE TEST CLERK Progress Note Date: 01/25/2025 Time: 5:23 AM Eren Merchant 64 y.o. female admitted for UTI and Vaginal Bleeding. Patient seen and examined. She had no acute complaints overnight. States she is doing well after her procedure yesterday. States she had some mild spotting after, but is now resolved. States she is not having nay abdominal pain/ cramping. Pain is controlled. Patient is tolerating oral intake. She is urinating. She is ambulating without difficulty. She denies Fever/Chills, Chest Pain, SOB, N/V. Vitals: Vitals: 01/24/25 1705 01/24/25 2143 01/25/25 0109 01/25/25 0420 BP: 134/86 121/89 114/76 135/85 BP Location: Right arm Right arm Right arm Right arm Patient Position: Lying Sitting Lying Lying Pulse: 87 98 87 92 Resp: 14 19 16 16 Temp: 36.3 ?C (97.4 ?F) 36.8 ?C (98.3 ?F) 36.4 ?C (97.6 ?F) 36.4 ?C (97.6 ?F) TempSrc: Temporal Temporal Temporal Temporal SpO2: 95% 95% 98% 99% Weight: Height: Physical Exam: Gen: NAD, resting comfortably in bed HEENT: Normocephalic, Atraumatic Resp: No increased WOB, no respiratory distress Card: Regular rate Abd: soft, NTND, no rebound, no guarding. Ext: No calf tenderness, swelling Medications: Current Medications[1] Diagnostics: ECG 12 lead Result Date: 01/23/2025 Sinus rhythm Ventricular premature complex Borderline left axis deviation Low voltage, precordial leads Borderline T abnormalities, diffuse leads Electronically Signed On 01-23-2025 02:30:53 EDT by Luis Armando Baugh CT abdomen pelvis wo IV contrast Result Date: 01/22/2025 [facility] 1960 [id number] Exam Date/Time: 01/22/2025 15:44 Procedure: CT ABDOMEN PELVIS WO IV CONTRAST Ordering Provider: CHANG GINA Reason For Exam: previous imaging showing bladder wall thickening and hydronephrosis CT abdomen and pelvis without contrast History: Bladder wall thickening Technique: 3 mm axial images from the lung bases to just below the pubic symphysis without intravenous contrast Dose reduction was employed with automated exposure control. Comparison: 03/05/2024 Mild bilateral hydronephrosis. 4 mm stone in the lower right kidney. Generalized bladder wall thickening may be from bladder outlet obstruction. The liver, spleen, pancreas, and adrenals are normal. Small hiatal hernia. No bowel inflammation or obstruction. No free fluid. Mild bilateral hydronephrosis. A 4 mm stone in the lower right kidney. Generalized bladder wall thickening may be from bladder outlet obstruction. Report Dictated on Electronically Signed By: Ron Yoon MD Component Date Value Ref Range Status ABO Grouping 01/22/2025 O Final Antibody Screen 01/22/2025 NEG Final Rh Type 01/22/2025 POS Final Auto WBC 01/22/2025 17.0 (H) 3.6 - 10.7 10*3/uL Final RBC 01/22/2025 3.15 (L) 3.80 - 5.20 10*6/uL Final Hemoglobin 01/22/2025 8.5 (L) 11.7 - 16.0 g/dL Final Hematocrit 01/22/2025 26.3 (L) 35.0 - 47.0 % Final MCV 01/22/2025 83.5 77.0 - 99.0 fL Final MCH 01/22/2025 27.0 26.0 - 34.0 pg Final MCHC 01/22/2025 32.3 30.5 - 36.0 % Final RDW 01/22/2025 13.8 11.5 - 15.0 % Final Platelets 01/22/2025 221 140 - 440 10*3/uL Final MPV 01/22/2025 10.0 9.0 - 12.7 fL Final SODIUM 01/22/2025 135 (L) 136 - 145 mmol/L Final POTASSIUM 01/22/2025 3.6 3.5 - 5.1 mmol/L Final Plasma potassium values may be up to 0.5 mmol/L lower than serum values. CHLORIDE 01/22/2025 106 98 - 107 mmol/L Final CARBON DIOXIDE 01/22/2025 21 (L) 23 - 31 mmol/L Final UREA NITROGEN 01/22/2025 28 (H) 9 - 23 mg/dL Final CREATININE 01/22/2025 1.83 (H) 0.57 - 1.11 mg/dL Final GLUCOSE 01/22/2025 119 (H) 82 - 115 mg/dL Final CALCIUM 01/22/2025 8.4 (L) 8.8 - 10.0 mg/dL Final ANION GAP 01/22/2025 8 3 - 13 mmol/L Final eGFR 01/22/2025 30.1 (L) >60.0 mL/min/1.73m*2 Final Calculation based on the Chronic Kidney Disease Epidemiology Collaboration (CKD-EPI) equation refit without adjustment for race PROTHROMBIN TIME 01/22/2025 12.4 (H) 9.0 - 12.0 s Final INR 01/22/2025 1.2 (H) 0.9 - 1.1 Final Recommended Anticoagulant Therapy: SEE BELOW ----- INR of 2.0 - 3.0 : - Prophylaxis of Venous Thrombosis (high-risk surgery) - Treatment of Venous Thrombosis - Treatment of Pulmonary Embolism (Includes tissue heart valves, Acute Myocardial Infarction to prevent systemic embolism, Valvular Heart Disease, and Atrial Fibrillation) ----- INR of 2.5 - 3.5 : - Mechanical Prosthetic Valves (high risk) - If oral anticoagulant therapy is used to prevent Myocardial Infarction Heart Rate 01/22/2025 96 bpm Final QRSD Interval 01/22/2025 88 ms Final QT Interval 01/22/2025 0 ms Final QTC Interval 01/22/2025 0 ms Final P Crawley 01/22/2025 -1 degrees Final QRS [place] 01/22/2025 -25 degrees Final T Wave Crawley 01/22/2025 -49 degrees Final MN Interval 01/22/2025 142 ms (more content not included)... [facility] 01-24-2025 Procedure note Report called to JUAN Ch on H5 [facility] 01-24-2025 Miscellaneous Notes Report called to JUAN Ch on H5 Spoke with patient's Son Shelton with update via phone Images from the original note were not included. I was scrubbed for the entire procedure and I agree with the resident physician's documentation. Operative Note Department of Obstetrics and Gynecology Patient: Eren Merchant : 1960 Date of Procedure: 01/24/25 Pre-Op Diagnosis: Uterine Bleeding Post-Op Diagnosis: Same Operative Procedure: Pelvic Exam Under Anesthesia, Endometrial Biopsy Surgeon: Dr. Joseph Software Clerk: Dr. Garces Findings: Diffusely stenotic cervix flush with the vaginal wall, No visualized external os. Small uterus on bimanual palpation, Uterus sounding to 8 cm Specimen: Endometrial biopsy UOP: Unmeasured EBL: <5 cc Fluids: 1000 cc Drains/implants: None Anesthesia: General Details of Procedure: The patient was brought back to the operating room, placed in dorsal lithotomy position, and prepped and draped in the normal sterile fashion. Urology completed separate procedure, see operative report, and case was turned back over to gynecology. A weighted speculum was placed into the vagina. A right angle retractor was placed anteriorly to allow visualization of the cervix. Cervix was flush with posterior fornix, small and atropic. The cervix was grasped w/ a single tooth tenaculum on the anterior and posterior lip. Attempt to locate external os with microdilators, however unable to pass. Cruciate incision preformed on cervix and return of cervical mucus was noted. This was then dilated with microdilator to allow passing of EMB pipelle. Endometrial biopsy was completed. Decision was made to not proceed with hysteroscopy due to severe cervical stenosis. The single tooth tenaculum was removed from the cervix. The tenaculum sites were noted to be hemostatic. All instrumentation was removed from the vagina. [place], sponges and instruments were counted times two and noted to be correct. The patient was awakened from anesthesia and brought to the recovery room in stable condition. Dr. Joseph was present for the entire procedure. Care Management Progress Note Short Medical why still here: Pt remains on H5 with UTI and vaginal bleed. Pt is NPO with plan for surgery today: Hysteroscopy and cystotomy. She still has dowd cath and is still receiving iv zosyn and vancomycin. Awaiting final blood and urine cx results. Pt is from home with son. Tcc will continue to follow for dc planning. Planned Discharge Disposition: Home or Self Care Barriers/Today we still Wait: Administering IV medications, Attending completion of discharge workflow, Clinical stability, Morning Caregiver recommendations (comment), Procedure (comment) Length of Stay (Days): 2 GMLOS: No GMLOS Documented Care Management Progress Note Short Medical why still here: pt admitted on 01/22 for vaginal bleeding and UTI. She is receiving iv zosyn and vanc. Dowd cath at present with plan for voiding trial prior to discharge. Blood and urine cultures were sent. Pt if rom home with son. Incependent. Tcc will continue to follow. Planned Discharge Disposition: Home or Self Care Barriers/Today we still Wait: Administering IV medications, Attending completion of discharge workflow, Clinical stability, Morning Caregiver recommendations (comment) Length of Stay (Days): 1 GMLOS: No GMLOS Documented USACS to take over as attending at this time as infection is primary reason for continued admission. Images from the original note were not included. Urology Plan of Care 64 y.o. female w/ mandi hydro in the setting of potential infection Plan: - dowd for maximal drainage of urinary tract - plan to keep until afebrile x 24 hours - will plan for void trial prior to discharge - send UA and Ucx - agree w/ IV abx: Vanc, Zosyn - follow cultures and adjust per sensitivities - trend labs and fever curve - remainder of care per primary team - please page urology if pt deteriorates as this may necessitate urgent intervention Please call/text or Epic message with non-urgent questions/concerns and otherwise page the urology resident senior reservations agent if needed Jay Black MD PGY-3 Urology 01/22/25 8:34 PM SEP-1 CORE MEASURE DATA SIRS Criteria Sepsis Criteria Severe Sepsis Criteria Septic Shock Criteria Must meet 2: [x] Temperature > 100.4 F (38 C) or < 96.8 F (36 C) [x] HR > 90 [] RR > 20 [x] WBC > 12 or < 4 or 10% bands Must be confirmed or suspected to move forward with diagnosis of sepsis. Must select at least one: [x] Bacterial Infection Confirmed or Suspected. [] Viral Infection Confirmed or Suspected. [] Fungal Infection Confirmed or Suspected. [] No infection present. Patient does not meet criteria for Sepsis. Must meet 1: [] Lactate > 2 or [] Signs of Organ Dysfunction: - SBP < 90 or MAP < 65 - Altered mental status - Creatinine > 2 or increased from baseline - Urine Output < 0.5 ml/kg/hr - Bilirubin > 2 - INR > 1.5 - Platelets < 100,000 - Acute Respiratory Failure as evidenced by new need for NIPPV or mechanical ventilation [] No criteria met for Severe Sepsis. Must meet 1: [] Lactate = or > 4 or [] SBP < 90 or MAP < 65 for at least two readings in the first hour after fluid bolus administration [] No criteria met for Septic Shock. No data found. Recent Labs 01/22/25 0409 WBC 17.0* CREATININE 1.83* INR 1.2* PLT 221 Sepsis Identified at 1912 hours. Fluid Resuscitation Rational: starting with 1 L LR bolus given CKD Infection Source: Unknown Reassessment Exam: Not applicable. Patient does not have Septic Shock. Tonny Mendoza DO documented in this encounter [facility] 01-24-2025 Procedure note Spoke with patient's Son Shelton with update via phone [facility] 01-24-2025 Note Patient: Eren del castillo Procedure Summary Date: 01/24/25 Room / Location: [address] Operating Room Anesthesia Start: 1445 Anesthesia Stop: 1557 Procedure: HYSTEROSCOPY, CYSTOSCOPY (Vagina ) Diagnosis: Vaginal bleeding Post-menopausal bleeding Surgeons: Becca Joseph MD Responsible Provider: Edwin Barron MD Anesthesia Type: general ASA Status: 2 Anesthesia Type: general Vitals Value Taken Time BP 144/81 01/24/25 16:00 Temp 97 01/24/25 15:55 Pulse 84 01/24/25 16:01 Resp 16 01/24/25 15:55 SpO2 100 % 01/24/25 16:01 Vitals shown include unfiled device data. Anesthesia Post Evaluation Patient location during evaluation: PACU Patient participation: waiting for patient participation Level of consciousness: arousable Pain management: satisfactory to patient Airway patency: patent Dental Injury: no Cardiovascular status: acceptable, blood pressure returned to baseline and hemodynamically stable Respiratory status: acceptable and spontaneous ventilation Hydration status: euvolemic Nausea/Vomiting: controlled No notable events documented. Patient can be discharged once all PACU criteria has been met. [facility] 01-24-2025 Note Patient: Eren del castillo Procedure Summary Date: 01/24/25 Room / Location: [address] Operating Room Anesthesia Start: 1445 Anesthesia Stop: 1557 Procedure: HYSTEROSCOPY, CYSTOSCOPY (Vagina ) Diagnosis: Vaginal bleeding Post-menopausal bleeding Surgeons: Becca Joseph MD Responsible Provider: Edwin Barron MD Anesthesia Type: general ASA Status: 2 Anesthesia Type: general Vitals Value Taken Time BP 144/81 01/24/25 16:00 Temp 98 01/24/25 16:02 Pulse 84 01/24/25 16:01 Resp 20 01/24/25 16:02 SpO2 100 % 01/24/25 16:01 Vitals shown include unfiled device data. Anesthesia Post Evaluation Patient participation: complete - patient participated Level of consciousness: arousable Pain management: satisfactory to patient Multimodal analgesia pain management approach Airway patency: patent Two or more strategies used to mitigate risk of obstructive sleep apnea Respiratory status: acceptable and supplemental oxygen Cardiovascular status: acceptable Hydration status: normovolemic PONV: none No notable events documented. MIPS #[id number] PONV Patient received an inhalational anesthetic (4554F) Patient exhibits three or more risk factors for PONV (4556F) Patient received at leaset 2 prophylactic Rx PONV anti-emtic agents of different classes preop and/or intraop (G9775) MIPS # 424 Perioperative Temperature Management Anesthesia time was 60 minutes or longer (4255F) Anesthesai administered was General (inhalational or TIVA) or Neuraxial block (X0424) At least one body temperature greater than 95.8F/35.5C achieved within the 30 mins immediately prior to or the 15 minutes immediately following anesthesia end time (G9771) MIPS #477 Multimodal Pain Management Not emergent [...] Allowed opportunity for questions and acknowledgement of understanding. [facility] 01-24-2025 Note Airway Date/Time: 01/24/2025 2:53 PM Reason: scheduled Airway not difficult General Information and Staff Patient location during procedure: Procedural Resident/HAT BLOCKING MACHINE OPERATOR: Mariam Wolf APRN - HAT BLOCKING MACHINE OPERATOR Performed: HAT BLOCKING MACHINE OPERATOR Patient Condition Patient position: sniffing MILS maintained throughout Sedation level: Asleep Final Airway Details Preoxygenated: yes Final airway type: supraglottic airway Successful airway: Igel Size: 4 Number of attempts at approach: 1 [facility] 01-24-2025 Note I was scrubbed for t he entire procedure and I agree with the resident physician's documentation. Operative Note Department of Obstetrics and Gynecology Patient: Eren Merchant : 1960 Date of Procedure: 01/24/25 Pre-Op Diagnosis: Uterine Bleeding Post-Op Diagnosis: Same Operative Procedure: Pelvic Exam Under Anesthesia, Endometrial Biopsy Surgeon: Dr. Joseph Software Clerk: Dr. Garces Findings: Diffusely stenotic cervix flush with the vaginal wall, No visualized external os. Small uterus on bimanual palpation, Uterus sounding to 8 cm Specimen: Endometrial biopsy UOP: Unmeasured EBL: <5 cc Fluids: 1000 cc Drains/implants: None Anesthesia: General Details of Procedure: The patient was brought back to the operating room, placed in dorsal lithotomy position, and prepped and draped in the normal sterile fashion. Urology completed separate procedure, see operative report, and case was turned back over to gynecology. A weighted speculum was placed into the vagina. A right angle retractor was placed anteriorly to allow visualization of the cervix. Cervix was flush with posterior fornix, small and atropic. The cervix was grasped w/ a single tooth tenaculum on the anterior and posterior lip. Attempt to locate external os with microdilators, however unable to pass. Cruciate incision preformed on cervix and return of cervical mucus was noted. This was then dilated with microdilator to allow passing of EMB pipelle. Endometrial biopsy was completed. Decision was made to not proceed with hysteroscopy due to severe cervical stenosis. The single tooth tenaculum was removed from the cervix. The tenaculum sites were noted to be hemostatic. All instrumentation was removed from the vagina. [place], sponges and instruments were counted times two and noted to be correct. The patient was awakened from anesthesia and brought to the recovery room in stable condition. Dr. Joseph was present for the entire procedure. [facility] 01-24-2025 Procedure note Images from the original note were not included. I was scrubbed for the entire procedure and I agree with the resident physician's documentation. Operative Note Department of Obstetrics and Gynecology Patient: Eren Merchant : 1960 Date of Procedure: 01/24/25 Pre-Op Diagnosis: Uterine Bleeding Post-Op Diagnosis: Same Operative Procedure: Pelvic Exam Under Anesthesia, Endometrial Biopsy Surgeon: Dr. Joseph Software Clerk: Dr. Garces Findings: Diffusely stenotic cervix flush with the vaginal wall, No visualized external os. Small uterus on bimanual palpation, Uterus sounding to 8 cm Specimen: Endometrial biopsy UOP: Unmeasured EBL: <5 cc Fluids: 1000 cc Drains/implants: None Anesthesia: General Details of Procedure: The patient was brought back to the operating room, placed in dorsal lithotomy position, and prepped and draped in the normal sterile fashion. Urology completed separate procedure, see operative report, and case was turned back over to gynecology. A weighted speculum was placed into the vagina. A right angle retractor was placed anteriorly to allow visualization of the cervix. Cervix was flush with posterior fornix, small and atropic. The cervix was grasped w/ a single tooth tenaculum on the anterior and posterior lip. Attempt to locate external os with microdilators, however unable to pass. Cruciate incision preformed on cervix and return of cervical mucus was noted. This was then dilated with microdilator to allow passing of EMB pipelle. Endometrial biopsy was completed. Decision was made to not proceed with hysteroscopy due to severe cervical stenosis. The single tooth tenaculum was removed from the cervix. The tenaculum sites were noted to be hemostatic. All instrumentation was removed from the vagina. [place], sponges and instruments were counted times two and noted to be correct. The patient was awakened from anesthesia and brought to the recovery room in stable condition. Dr. Joseph was present for the entire procedure. [facility] Phone: 01-24-2025 Note Patient: Eren del castillo Procedure Information Date/Time: 01/24/25 1200 Procedure: HYSTEROSCOPY, CYSTOSCOPY (Vagina ) Location: [address] Operating Room Surgeons: Sam Hirsch MD Relevant Problems Endo (+) Acquired hypothyroidism [...] Sexual Activity Drug Use Never Family History: Family History[1] Screening: Postmenopausal Clinical information reviewed: Allergies Meds OB Status Physical Exam Airway Mallampati: II TM distance: >3 FB Neck ROM: full Mouth Open: normalendotracheal tube not in place Cardiovascular - normal exam Dental dentition normal Pulmonary - normal exam Abdominal - normal exam Anesthesia Plan Any family history or previous problems with anesthesia no We discussed risks, benefits, alternatives and likelihood of success with the Patient. ASA 2 general Any family history or previous problems with anesthesia noUse of blood products discussed with who consented to blood products. The patient is not a current smoker. patient is NPO appropriate JOSE ANGEL Screening Labs: Lab Results Component Value Date WBC 10.2 01/24/2025 HGB 8.9 (L) 01/24/2025 HCT 27.0 (L) 01/24/2025 MCV 82.1 01/24/2025 PLT 245 01/24/2025 Lab Results Component Value Date NA 135 (L) 01/24/2025 K 3.5 01/24/2025 CL 109 (H) 01/24/2025 CO2 21 (L) 01/24/2025 BUN 19 01/24/2025 CREATININE 1.37 (H) 01/24/2025 GLUCOSE 94 01/24/2025 CALCIUM 8.7 (L) 01/24/2025 PROT 7.7 03/04/2024 ALKPHOS 96 03/04/2024 AST 27 03/04/2024 ALT 17 03/04/2024 EGFR 42.7 (L) 01/24/2025 Pain Score: 0 - No pain No echocardiogram results found for the past 14 days 01/22/25 ECG 12-LEAD 01/23/2025 2:30 AM (Final) Impression Sinus rhythm Ventricular premature complex Borderline left axis deviation Low voltage, precordial leads Borderline T abnormalities, diffuse leads Electronically Signed On 01-23-2025 02:30:53 EDT by Luis Armando Baugh Signed by: Luis Armando Baugh MD on 01/23/2025 2:30 AM Equipment Requests: Additional Equipment Requests [1] No family history on file. [facility] 01-24-2025 Note Care Management Prog ress Note Short Medical why still here: Pt remains on H5 with UTI and vaginal bleed. Pt is NPO with plan for surgery today: Hysteroscopy and cystotomy. She still has dowd cath and is still receiving iv zosyn and vancomycin. Awaiting final blood and urine cx results. Pt is from home with son. Tcc will continue to follow for dc planning. Planned Discharge Disposition: Home or Self Care Barriers/Today we still Wait: Administering IV medications, Attending completion of discharge workflow, Clinical stability, Morning Caregiver recommendations (comment), Procedure (comment) Length of Stay (Days): 2 GMLOS: No GMLOS Documented [facility] 01-24-2025 Progress note Formatting of t his note might be different from the original. Care Management Progress Note Short Medical why still here: Pt remains on H5 with UTI and vaginal bleed. Pt is NPO with plan for surgery today: Hysteroscopy and cystotomy. She still has dowd cath and is still receiving iv zosyn and vancomycin. Awaiting final blood and urine cx results. Pt is from home with son. Tcc will continue to follow for dc planning. Planned Discharge Disposition: Home or Self Care Barriers/Today we still Wait: Administering IV medications, Attending completion of discharge workflow, Clinical stability, Morning Caregiver recommendations (comment), Procedure (comment) Length of Stay (Days): 2 GMLOS: No GMLOS Documented [facility] 01-24-2025 Note Pharmacy to Dose Van comycin - Progress Note Lab Results Component Value Date CREATININE 1.37 (H) 01/24/2025 BUN 19 01/24/2025 WBC 10.2 01/24/2025 VANCOTROUGH 17.6 01/23/2025 Doses, serum creatinine, and vancomycin levels interfaced automatically to [employer] and data has been analyzed and interpreted. Infectious Diagnosis: Sepsis of Unknown Etiology Est CrCl: 48 mL/min (Cockcroft-Gault) Assessment: Current regimen vancomycin 1000 mg every 24 hours (13 mg/kg) Predicted AUC = 565 mg/L*hr (goal 400-600 mg/L*hr) PAUC = >95% (probability that AUC is >400 mg/L*hr) Pconc = 21% (probability that Ctrough is above 20 mcg/mL (toxicity)) Plan: Is the current dose therapeutic? [x] Yes - obtain next level on 01/26 unless predicted AUC is sub-/supra-therapeutic or change in serum creatinine. [] No - Trend serum creatinine. Trend AUC using Bayesian Modeling. Orders placed. DATE: 01/24/25 TIME: 8:41 AM Mathew Holguin, PharmD Clinical Pharmacist Available via [employer] [facility] 01-24-2025 Note Hospitalist Progress Note - [facility] [employer] [facility] 01/24/2025 8:27 AM [phone]: Please page me for patient care issues. [phone]: Please page [facility] Hospitalist - [facility] for any issues. Subjective and Objective: Admit Date: 01/22/2025 PCP: Pryianka Smith 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 Patient presents with Vaginal Bleeding Transfer from [facility] for a REFERENCE TEST CLERK/ONC consult. Started to bleed heavily Wednesday morning going thru approx 70 maxi pads. +clots. Received 1 unit of PRBCs @ [facility] but didn't receive full second unit d/t increased temperature. Per EMS she became hypotensive for 90s/50s and was given a 500cc bolus. Pt has no other complaints, just the bleeding. NPO diet with enteral medications Dietary Orders (From admission, onward) Start Ordered 01/24/25 0001 NPO diet with enteral medications Diet effective midnight Question: Medications? Answer: with enteral medications 01/23/25 1338 I/O last 3 completed shifts: In: 3091.7 (40.3 mL/kg) [P.O.:1350; IV Piggyback:1741.7] Out: 6075 (79.2 mL/kg) [Urine:6075 (2.2 mL/kg/hr)] Weight: 76.7 kg @IODETAILS@ @[id number]@ Medications: Continuous Meds[1] Scheduled Meds[2] Recent Labs 01/22/25200801/23/2554301/24/25 0520 WBC 15.4* 14.3* 10.2 HGB 8.9* 8.6* 8.9* PLT 221 227 245 Recent Labs 01/22/25 0409 01/23/25 0544 01/24/25 0520 NA 135* 132* 135* K 3.6 3.0* 3.5 CL 106 105 109* CO2 21* 22* 21* BUN 28* 20 19 CREATININE 1.83* 1.40* 1.37* GLUCOSE 119* 99 94 No results for input(s): AST, ALT, BILITOT, ALKPHOS in the last 72 hours. No lab exists for component: ALB No results found for: TRIG, HDL, LDLCALC, CHOL No results found for: PHART, PO2ART, AGP4KKS Recent Labs 01/22/25 0409 INR 1.2* No results for input(s): CKTOTAL, CKMB, TROPONINI in the last 72 hours. No results for input(s): DDIMER in the last 72 hours. No results found for: HGBA1C No results found for: TSH Urine Culture: Results for orders placed or performed during the hospital encounter of 03/04/24 Urine culture Collection Time: 03/05/24 1:44 PM Specimen: Urine, Clean Catch Result Value Ref Range Urine Culture No growth (<1,000 CFU/mL) Objective: Vitals: BP 119/76 (BP Location: Left arm, Patient Position: Lying) Pulse 91 Temp 36.3 ?C (97.3 ?F) (Temporal) Resp 16 Ht 5' 5.5 (1.664 m) Wt 169 lb (76.7 kg) LMP (LMP Unknown) SpO2 99% BMI 27.70 kg/m? Pulse Ox: SpO2 Av % Min: 94 % Max: 99 % Supplemental O2: Past 24 hours events: son at bedside GENERAL: calm, no complaints CARDIOVASCULAR: no palpitations, regular RESPIRATORY: no rhonchi or crackles ABDOMEN: non-distended EXTREMITIES: moving spontaneously ANATOMY/TUBES/LINES: N/A Running Summary, Assessment, and Plan Eren is a 64 y.o. female with a past medical history of parkinson's, thyroid cancer s/p surgical intervention, and overactive bladder with recurrent UTI. Patient developed heavy vaginal bleeding Saturday 01/20, she initially presented to [facility], was then transferred to [facility] for OB-Chief Gauger consult. Hgb baseline ~12, down to 8. She received 1.5 units of PRBC, second unit stopped for fever. CT A/P showed thickened bladder wall and bilateral hydronephrosis. Bleeding stopped on own this morning, before Megace was given. Chief Gauger planning for hysteroscopy D&C inpatient per patient request. Patient developed fever and dysuria, urology following already. UA positive for UTI, placed on Zosyn prior. Patient denies any flank pain, frequency, foul smelling urine, or pain with urination. Hospital medicine was consulted for further management of UTI. Urine culture growing E Coli, Vanc stopped. 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 As a result of the above findings & factors, the following mgmt was pursued: - Afebrile past 24 hours, HR 91 with BP 119/76 - IV Vanc 01/22 - 01/24 - IV Zosyn 01/22 - present - Urine culture growing E Coli - Procal 2.9 - Anemia workup showing VALDEZ, ferritin elevated in acute infection, will prescribe Iron to take after infection is cleared - Takes Florinef at home for BP support, BP stable here likely due to IV fluids - am labs, replace lytes prn - 40 KCL 01/23 - PT/OT/CM/SW as appropriate - delirium precautions: limit night-time awakening - DVT prophylaxis: ambulation, no chemical agents due to recent bleeding Complexity: Acute illness or injury posing a threat to life or body function (HIGH). Ris (more content not included)... [facility] 01-24-2025 Note REFERENCE TEST CLERK Progress Note Date: 01/24/2025 Time: 5:20 AM Eren Merchant 64 y.o. female admitted for UTI and Vaginal Bleeding Patient seen and examined. She had no acute concerns overnight. Patient is currently NPO. Her dowd catheter remains in place. She denies any vaginal bleeding. She denies Fever/Chills, Chest Pain, SOB, N/V. She is awaiting surgery as would like to move forward with diagnosis for vaginal bleeding. Vitals: Vitals: 01/23/25 0519 01/23/25 0851 01/23/25 1430 01/23/25 1747 BP: 142/84 143/78 102/58 129/84 BP Location: Right arm Right arm Right arm Right arm Patient Position: Lying Sitting Sitting Sitting Pulse: 102 97 97 97 Resp: 18 16 22 20 Temp: 37.4 ?C (99.3 ?F) 36.4 ?C (97.5 ?F) 36.4 ?C (97.5 ?F) 36.8 ?C (98.3 ?F) TempSrc: Temporal Temporal Temporal Temporal SpO2: 92% 94% 97% 98% Weight: Height: Physical Exam: Gen: NAD, alert and cooperative HEENT: Normocephalic, atraumatic, EOMI, MMM Resp: No increased WOB Abd: soft, NT/ND, no rebound, no guarding. Ext: No LE edema, no calf tenderness or swelling Medications: Current Medications[1] Diagnostics: ECG 12 lead Result Date: 01/23/2025 Sinus rhythm Ventricular premature complex Borderline left axis deviation Low voltage, precordial leads Borderline T abnormalities, diffuse leads Electronically Signed On 01-23-2025 02:30:53 EDT by Luis Armando Baugh CT abdomen pelvis wo IV contrast Result Date: 01/22/2025 Patient Name: EREN MERCHANT : 1960 Exam Date/Time: 01/22/2025 15:44 Procedure: CT ABDOMEN PELVIS WO IV CONTRAST Ordering Provider: CHANG GINA Reason For Exam: previous imaging showing bladder wall thickening and hydronephrosis CT abdomen and pelvis without contrast History: Bladder wall thickening Technique: 3 mm axial images from the lung bases to just below the pubic symphysis without intravenous contrast Dose reduction was employed with automated exposure control. Comparison: 03/05/2024 Mild bilateral hydronephrosis. 4 mm stone in the lower right kidney. Generalized bladder wall thickening may be from bladder outlet obstruction. The liver, spleen, pancreas, and adrenals are normal. Small hiatal hernia. No bowel inflammation or obstruction. No free fluid. Mild bilateral hydronephrosis. A 4 mm stone in the lower right kidney. Generalized bladder wall thickening may be from bladder outlet obstruction. Report Dictated on Electronically Signed By: Ron Yoon MD Component Date Value Ref Range Status ABO Grouping 01/22/2025 O Final Antibody Screen 01/22/2025 NEG Final Rh Type 01/22/2025 POS Final Auto WBC 01/22/2025 17.0 (H) 3.6 - 10.7 10*3/uL Final RBC 01/22/2025 3.15 (L) 3.80 - 5.20 10*6/uL Final Hemoglobin 01/22/2025 8.5 (L) 11.7 - 16.0 g/dL Final Hematocrit 01/22/2025 26.3 (L) 35.0 - 47.0 % Final MCV 01/22/2025 83.5 77.0 - 99.0 fL Final MCH 01/22/2025 27.0 26.0 - 34.0 pg Final MCHC 01/22/2025 32.3 30.5 - 36.0 % Final RDW 01/22/2025 13.8 11.5 - 15.0 % Final Platelets 01/22/2025 221 140 - 440 10*3/uL Final MPV 01/22/2025 10.0 9.0 - 12.7 fL Final SODIUM 01/22/2025 135 (L) 136 - 145 mmol/L Final POTASSIUM 01/22/2025 3.6 3.5 - 5.1 mmol/L Final Plasma potassium values may be up to 0.5 mmol/L lower than serum values. CHLORIDE 01/22/2025 106 98 - 107 mmol/L Final CARBON DIOXIDE 01/22/2025 21 (L) 23 - 31 mmol/L Final UREA NITROGEN 01/22/2025 28 (H) 9 - 23 mg/dL Final CREATININE 01/22/2025 1.83 (H) 0.57 - 1.11 mg/dL Final GLUCOSE 01/22/2025 119 (H) 82 - 115 mg/dL Final CALCIUM 01/22/2025 8.4 (L) 8.8 - 10.0 mg/dL Final ANION GAP 01/22/2025 8 3 - 13 mmol/L Final eGFR 01/22/2025 30.1 (L) >60.0 mL/min/1.73m*2 Final Calculation based on the Chronic Kidney Disease Epidemiology Collaboration (CKD-EPI) equation refit without adjustment for race PROTHROMBIN TIME 01/22/2025 12.4 (H) 9.0 - 12.0 s Final INR 01/22/2025 1.2 (H) 0.9 - 1.1 Final Recommended Anticoagulant Therapy: SEE BELOW ----- INR of 2.0 - 3.0 : - Prophylaxis of Venous Thrombosis (high-risk surgery) - Treatment of Venous Thrombosis - Treatment of Pulmonary Embolism (Includes tissue heart valves, Acute Myocardial Infarction to prevent systemic embolism, Valvular Heart Disease, and Atrial Fibrillation) ----- INR of 2.5 - 3.5 : - Mechanical Prosthetic Valves (high risk) - If oral anticoagulant therapy is used to prevent Myocardial Infarction Heart Rate 01/22/2025 96 bpm Final QRSD Interval 01/22/2025 88 ms Final QT Interval 01/22/2025 0 ms Final QTC Interval 01/22/2025 0 ms Final P Crawley 01/22/2025 -1 degrees Final QRS Crawley 01/22/2025 -25 degrees Final T Wave Crawley 01/22/2025 -49 degrees Final MN Interval 01/22/2025 142 ms Final RBC Morphology 01/22/2025 abnormal Final Poikilocytes 01/22/2025 Slight (A) (none) Final Ovalocytes 01/22/2025 (more content not included)... [facility] 01-23-2025 Note Care Management Prog ress Note Short Medical why still here: pt admitted on 01/22 for vaginal bleeding and UTI. She is receiving iv zosyn and vanc. Dowd cath at present with plan for voiding trial prior to discharge. Blood and urine cultures were sent. Pt if rom home with son. Incependent. Tcc will continue to follow. Planned Discharge Disposition: Home or Self Care Barriers/Today we still Wait: Administering IV medications, Attending completion of discharge workflow, Clinical stability, Morning Caregiver recommendations (comment) Length of Stay (Days): 1 GMLOS: No GMLOS Documented [facility] 01-23-2025 Progress note Formatting of t his note might be different from the original. Care Management Progress Note Short Medical why still here: pt admitted on 01/22 for vaginal bleeding and UTI. She is receiving iv zosyn and vanc. Dowd cath at present with plan for voiding trial prior to discharge. Blood and urine cultures were sent. Pt if rom home with son. Incependent. Tcc will continue to follow. Planned Discharge Disposition: Home or Self Care Barriers/Today we still Wait: Administering IV medications, Attending completion of discharge workflow, Clinical stability, Morning Caregiver recommendations (comment) Length of Stay (Days): 1 GMLOS: No GMLOS Documented [facility] 01-23-2025 Progress note Formatting of t his note might be different from the original. [facility] to take over as attending at this time as infection is primary reason for continued admission. [facility] 01-23-2025 Note Hospitalist Progress Note - [facility] [employer] ([facility]) 01/23/2025 7:40 AM [phone]: Please page me for patient care issues. [phone]: Please page [facility] Hospitalist - [facility] for any issues. Subjective and Objective: Admit Date: 01/22/2025 PCP: Priyanka Smith 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 Patient presents with Vaginal Bleeding Transfer from [facility] for a REFERENCE TEST CLERK/ONC consult. Started to bleed heavily Wednesday morning going thru approx 70 maxi pads. +clots. Received 1 unit of PRBCs @ [facility] but didn't receive full second unit d/t increased temperature. Per EMS she became hypotensive for 90s/50s and was given a 500cc bolus. Pt has no other complaints, just the bleeding. Adult diet Regular Dietary Orders (From admission, onward) Start Ordered 01/23/25628 Adult diet Regular Diet effective now Question: Diet type Answer: Regular 01/23/25628 I/O last 3 completed shifts: In: 2741.7 (35.8 mL/kg) [P.O.:1000; IV Piggyback:1741.7] Out: 1725 (22.5 mL/kg) [Urine:1725 (0.6 mL/kg/hr)] Weight: 76.7 kg @IODETAILS@ @IFAG0VFOHLV@ Medications: Continuous Meds[1] Scheduled Meds[2] Recent Labs 01/22/25 0409 01/22/25200801/23/25 0544 WBC 17.0* 15.4* 14.3* HGB 8.5* 8.9* 8.6* PLT 221 221 227 Recent Labs 01/22/25 0409 01/23/25 0544 NA 135* 132* K 3.6 3.0* CL 106 105 CO2 21* 22* BUN 28* 20 CREATININE 1.83* 1.40* GLUCOSE 119* 99 No results for input(s): AST, ALT, BILITOT, ALKPHOS in the last 72 hours. No lab exists for component: ALB No results found for: TRIG, HDL, LDLCALC, CHOL No results found for: PHART, PO2ART, LDL7VKA Recent Labs 01/22/25 0409 INR 1.2* No results for input(s): CKTOTAL, CKMB, TROPONINI in the last 72 hours. No results for input(s): DDIMER in the last 72 hours. No results found for: HGBA1C No results found for: TSH Urine Culture: Results for orders placed or performed during the hospital encounter of 03/04/24 Urine culture Collection Time: 03/05/24 1:44 PM Specimen: Urine, Clean Catch Result Value Ref Range Urine Culture No growth (<1,000 CFU/mL) Objective: Vitals: BP 142/84 (BP Location: Right arm, Patient Position: Lying) Pulse 102 Temp 37.4 ?C (99.3 ?F) (Temporal) Resp 18 Ht 5' 5.5 (1.664 m) Wt 169 lb (76.7 kg) LMP (LMP Unknown) SpO2 92% BMI 27.70 kg/m? Pulse Ox: SpO2 Av.2 % Min: 92 % Max: 98 % Supplemental O2: Past 24 hours events: temp 101.4 F overnight GENERAL: alert and oriented, no acute distress CARDIOVASCULAR: RRR, no murmurs RESPIRATORY: clear without wheezes ABDOMEN: soft, non tender EXTREMITIES: no edema ANATOMY/TUBES/LINES: N/A Running Summary, Assessment, and Plan Eren is a 64 y.o. female with a past medical history of parkinson's, thyroid cancer s/p surgical intervention, and overactive bladder with recurrent UTI. Patient developed heavy vaginal bleeding Saturday 01/20, she initially presented to [facility], was then transferred to [facility] for OB-Chief Gauger consult. Hgb baseline ~12, down to 8. She received 1.5 units of PRBC, second unit stopped for fever. CT A/P showed thickened bladder wall and bilateral hydronephrosis. Bleeding stopped on own this morning, before Megace was given. Chief Gauger planning for hysteroscopy D&C inpatient per patient request. Patient developed fever and dysuria, urology following already. UA positive for UTI, placed on Zosyn prior. Patient denies any flank pain, frequency, foul smelling urine, or pain with urination. Hospital medicine was consulted for further management of UTI. Acute, acute on chronic, unstable/uncontrolled chronic problems/diagnoses: Urinary tract infection Simple sepsis 2/2 UTI Vaginal bleeding Bilateral hydronephrosis Hyponatremia Hypokalemia CKD 3 (baseline Cr ~ 1.6 - 1.7) Stable chronic problems affecting care, new non-acute diagnoses: Parkinson's Constipation Esophageal dysmotility Interstitial lung disease and Nonspecific Interstitial Pneumonia (NSIP) on [employer] As a result of the above findings & factors, the following mgmt was pursued: - Temp 101.4 F overnight with HR 105 - IV Vanc 01/22 - present - IV Zosyn 01/22 - present - Procal 2.9 - Check iron studies - Takes Florinef at home for BP support, BP stable here likely due to IV fluids - am labs, replace lytes prn - 40 KCL 01/23 - PT/OT/CM/SW as appropriate - delirium precautions: limit night-time awakening - DVT prophylaxis: ambulation, no chemical agents due to recent bleeding Complexity: Acute illness or injury posing a threat to life or body function (HIGH). Risk: Admission to hospital-level care was considered or occurred (HIGH). Advance Directive: Full Anticipated Discharge - Date - 01/25 - 01/30 - Location - Home - Pending the following - antibiotic plan, Chief Gauger recs Total time spent (which include face to face and non face to face encounters) in minutes: 51 Toxic drug monitoring/narrow therapeutic i (more content not included)... [facility] 01-23-2025 Note Pharmacy to Dose Van comycin - Progress Note Lab Results Component Value Date CREATININE 1.40 (H) 01/23/2025 BUN 20 01/23/2025 WBC 14.3 (H) 01/23/2025 VANCOTROUGH 17.6 01/23/2025 Doses, serum creatinine, and vancomycin levels interfaced automatically to [employer] and data has been analyzed and interpreted. Infectious Diagnosis: Sepsis Est CrCl: 47 mL/min (Cockcroft-Gault) Assessment: Current regimen vancomycin 750 mg every 24 hours (9.8 mg/kg) Predicted AUC = 435 mg/L*hr (goal 400-600 mg/L*hr) PAUC = 72% (probability that AUC is >400 mg/L*hr) Pconc = <5% (probability that Ctrough is above 20 mcg/mL (toxicity)) Plan: Is the current dose therapeutic? [x] No - change current regimen to vancomycin 1000 mg every 24 hours (13 mg/kg) for predicted AUC 578 mg/L*hr, PAUC = >95% , and Pconc* = <5%. Obtain next level on 01/26. Trend serum creatinine. Trend AUC using Bayesian Modeling. Orders placed. DATE: 01/23/25 TIME: 7:37 AM Kristie Duran, PharmD Clinical Pharmacist Available via [employer] [facility] 01-23-2025 Note UROLOGY PROGRESS NOTE PATIENT NAME: Eren Merchant DATE OF : 1960 ADMISSION DATE: 01/22/2025 TODAY'S DATE: 01/23/2025 Subjective No acute events overnight Fevered to 101.4 Dowd placed for maximal decompression On RA Denies any pain this morning Feels okay Objective VS: BP 142/84 (BP Location: Right arm, Patient Position: Lying) Pulse 102 Temp 37.4 ?C (99.3 ?F) (Temporal) Resp 18 Ht 5' 5.5 (1.664 m) Wt 169 lb (76.7 kg) LMP (LMP Unknown) SpO2 92% BMI 27.70 kg/m? I & O - 24hr: I/O last 3 completed shifts: In: 650 (8.5 mL/kg) [P.O.:650] Out: - (0 mL/kg) Weight: 76.7 kg I/O this shift: In: 2090.7 [P.O.:350; IV Piggyback:1741.7] Out: 1725 [Urine:1725] Physical Exam: General: Resp: Abdomen: No acute distress Normal effort, no respiratory distress, on RA Soft, non-tender, nondistended : No flank pain Labs and Imaging Studies Labs: CBC: Lab Results Component Value Date WBC 14.3 (H) 01/23/2025 HGB 8.6 (L) 01/23/2025 HCT 26.3 (L) 01/23/2025 MCV 80.7 01/23/2025 PLT 227 01/23/2025 BMP: Lab Results Component Value Date GLUCOSE 119 (H) 01/22/2025 CALCIUM 8.4 (L) 01/22/2025 NA 135 (L) 01/22/2025 K 3.6 01/22/2025 CO2 21 (L) 01/22/2025 CL 106 01/22/2025 BUN 28 (H) 01/22/2025 CREATININE 1.83 (H) 01/22/2025 PT/INR: Lab Results Component Value Date INR 1.2 (H) 01/22/2025 PROTIME 12.4 (H) 01/22/2025 Assessment and Plan ASSESSMENT: 64 y.o. female with bilateral hydro - CT: + bladder wall thickening - WBC: 14.3 - Hgb 8.6 - Cr 1.4 PLAN: - dowd for maximal drainage of urinary tract - plan to keep until afebrile x 24 hours - will plan for void trial prior to discharge - send UA and Ucx - agree w/ IV abx: Vanc, Zosyn - follow cultures and adjust per sensitivities - trend labs and fever curve - remainder of care per primary team - please page urology if pt deteriorates as this may necessitate urgent intervention Jay Black MD PGY-3 Urology 01/23/25 6:42 AM [facility] 01-22-2025 Consult note Associated Order (s): IP CONSULT TO INTERNAL MEDICINE Hospital Medicine Consult Patient - Eren Merchant, Age - 64 y.o. - 1960 Room Number - [id number] 5160 Consulting - Jennie Chang DO Primary Care Physician - Priyanka Smith Date of Admission - 01/22/2025 3:42 AM Hospital Day - 0 Reason for Consult: Medical Management HISTORY OF PRESENT ILLNESS: Eren is a 64 y.o. female with a past medical history of parkinson's, thyroid cancer s/p surgical intervention, and overactive bladder with recurrent UTI. Patient developed heavy vaginal bleeding Saturday 01/20, she initially presented to [facility], was then transferred to [facility] for OB-Chief Gauger consult. Hgb baseline ~12, down to 8. She received 1.5 units of PRBC, second unit stopped for fever. CT A/P showed thickened bladder wall and bilateral hydronephrosis. Bleeding stopped on own this morning, before Megace was given. Chief Gauger planning for hysteroscopy D&C inpatient per patient request. Patient developed fever and dysuria, urology following already. UA positive for UTI, placed on Zosyn prior. Patient denies any flank pain, frequency, foul smelling urine, or pain with urination. Hospital medicine was consulted for further management of UTI. Past Medical History: Medical History[1] Past Surgical History: Surgical History[2] Medications: Scheduled Meds[3] Continuous Meds[4] PRN Meds[5] Allergies: Azithromycin and Seasonal Social History: Social History Socioeconomic History Marital [...] Social History Narrative Not on file Social Drivers of Health Financial Resource Strain: Low Risk (12/11/2024) Received from [facility] Overall Financial Resource Strain (CARDIA) Difficulty of Paying Living Expenses: Not hard at all Food Insecurity: No Food Insecurity (01/22/2025) Hunger Vital Sign Worried About Running Out of Food in the Last Year: Never true Ran Out of Food in the Last Year: Never true Transportation Needs: No Transportation Needs (01/22/2025) PRAPARE - Transportation Lack of Transportation (Medical): No Lack of Transportation (Non-Medical): No Physical Activity: Insufficiently Active (12/11/2024) Received from [facility] Exercise Vital Sign Days of Exercise per Week: 3 days Minutes of Exercise per Session: 30 min Stress: No Stress Concern Present (12/11/2024) Received from [facility] [employer] [place] [employer] - Occupational Stress Questionnaire Feeling of Stress : Not at all Social Connections: Moderately Isolated (12/11/2024) Received from [facility] Social Connection and Isolation Panel [NHANES] Frequency of Communication with Friends and Family: More than three times a week Frequency of Social Gatherings with Friends and Family: Once a week Attends Anglican Services: 1 to 4 times per year Active Member of Clubs or Organizations: No Attends Club or Organization Meetings: Never Marital Status: Intimate Partner Violence: Not At Risk (01/22/2025) Humiliation, Afraid, Rape, and Kick questionnaire Fear of Current or Ex-Partner: No Emotionally Abused: No Physically Abused: No Sexually Abused: No Housing Stability: Low Risk (01/22/2025) Housing Stability Vital Sign Unable to Pay for Housing in the Last Year: No Number of Times Moved in the Last Year: 1 Homeless in the Last Year: No Family History: Family History[6] REVIEW OF SYSTEMS: 10 point ROS obtained, as per HPI, otherwise NEG Physical Exam: Vitals: BP 140/83 (BP Location: Right arm, Patient Position: Lying) Pulse 105 Temp (!) 38.6 C (101.4 F) (Temporal) Resp 18 Ht 1.664 m (5' 5.5) Wt 76.7 kg (169 lb) LMP (LMP Unknown) SpO2 94% BMI 27.70 kg/m BMI Classification: Overweight (BMI 25.0-29.9) Pulse Ox: SpO2 Av.5 % Min: 92 % Max: 99 % Supplemental O2: General appearance: No apparent distress, appears stated age and cooperative with exam. HEENT: Normal cephalic, atraumatic without obvious deformity. Pupils equal, round, and reactive to light. Extra ocular muscles intact. Conjunctivae/corneas clear. Neck: Supple, with full range of motion. No jugular venous distention. Trachea midline. No lymphadenopathy. Respiratory: Normal respiratory effort. Clear to auscultation, bilaterally without Rales/Wheezes/Rhonchi. Cardiovascular: Regular rate and rhythm with normal S1/S2 without murmurs, rubs or gallops. Abdomen: Soft, non-tender, non-distended with normal bowel sounds. No rebound or guarding. Musculoskeletal: No clubbing, cyanosis or edema bilaterally. Full range of motion without deformity, +2 peripheral pulses in all extremities. Skin: Skin color, texture, turgor normal. No rashes or lesions. Neurologic: Neurovascularly intact without any focal sensory/motor deficits. Cranial nerves: II-XII intact, grossly non-focal. Psychiatric: Alert and oriented, thought content appropriate, normal insight. LABS: Recent Results (from the past 24 hours) ECG 12 lead Collection Time: 01/22/25 4:03 AM Result Value Ref Range Heart Rate 96 bpm QRSD Interval 88 ms QT Interval 0 ms QTC Interval 0 ms P Crawley -1 degrees QRS Crawley -25 degrees T Wave Crawley -49 degrees MN Interval 142 ms Type and Screen Collection Time: 01/22/25 4:09 AM Result Value Ref Range ABO Grouping O Antibody Screen NEG Rh Type POS CBC auto differential Collection Time: 01/22/25 4:09 AM Result Value Ref Range Auto WBC 17.0 (H) 3.6 - 10.7 10*3/uL RBC 3.15 (L) 3.80 - 5.20 10*6/uL Hemoglobin 8.5 (L) 11.7 - 16.0 g/dL Hematocrit 26.3 (L) 35.0 - 47.0 % MCV 83.5 77.0 - 99.0 fL MCH 27.0 26.0 - 34.0 pg MCHC 32.3 30.5 - 36.0 % RDW 13.8 11.5 - 15.0 % Platelets 221 140 - 440 10*3/uL MPV 10.0 9.0 - 12.7 fL Basic metabolic panel Collection Time: 01/22/25 4:09 AM Result Value Ref Range SODIUM 135 (L) 136 - 145 mmol/L POTASSIUM 3.6 3.5 - 5.1 mmol/L CHLORIDE 106 98 - 107 mmol/L CARBON DIOXIDE 21 (L) 23 - 31 mmol/L UREA NITROGEN 28 (H) 9 - 23 mg/dL CREATININE 1.83 (H) 0.57 - 1.11 mg/dL GLUCOSE 119 (H) 82 - 115 mg/dL CALCIUM 8.4 (L) 8.8 - 10.0 mg/dL ANION GAP 8 3 - 13 mmol/L eGFR 30.1 (L) >60.0 mL/min/1.73m*2 Protime-INR Collection Time: 01/22/25 4:09 AM Result Value Ref Range PROTHROMBIN TIME 12.4 (H) 9.0 - 12.0 s INR 1.2 (H) 0.9 - 1.1 MANUAL DIFFERENTIAL (CELLAVISION) Collection Time: 01/22/25 4:09 AM Result Value Ref Range RBC Morphology abnormal Poikilocytes Slight (A) (none) Ovalocytes Slight (A) (none) Neutrophils % 89 (H) 38 - 82 % Bands % 3 (H) <=0 % Lymphocytes % 2 (L) 15 - 45 % Monocytes % 6 5 - 13 % Absolute Neutrophil Count 15.6 (H) 1.8 - 7.5 10*3/uL Bands Absolute 0.5 (H) <=0.0 10*3/uL Lymphocytes Absolute 0.3 (L) 1.0 - 4.3 10*3/uL Monocytes Absolute 1.0 (H) 0.0 - 0.9 10*3/uL Neutrophils Manual 88 Lymphocytes Manual 2 Monocytes Manual 6 Eosinophils Manual Basophils Manual Bands Manual 3 Metamyelocytes Manual Myelocytes Manual Promyelocytes Manual Blasts Manual Atypical Lymphocytes Manual Unclassified Cells, Manual CBC Collection Time: 01/22/25 8:09 PM Result Value Ref Range Auto WBC 15.4 (H) 3.6 - 10.7 10*3/uL RBC 3.27 (L) 3.80 - 5.20 10*6/uL Hemoglobin 8.9 (L) 11.7 - 16.0 g/dL Hematocrit 26.5 (L) 35.0 - 47.0 % MCV 81.0 77.0 - 99.0 fL MCH 27.2 26.0 - 34.0 pg MCHC 33.6 30.5 - 36.0 % RDW 14.0 11.5 - 15.0 % Platelets 221 140 - 440 10*3/uL MPV 10.3 9.0 - 12.7 fL Lactic acid with reflex Collection Time: 01/22/25 8:09 PM Result Value Ref Range LACTIC ACID 0.7 0.5 - 2.2 mmol/L Blood culture Site #1 - Suspected Infection Collection Time: 01/22/25 8:14 PM Specimen: Blood, Venous Result Value Ref Range Blood Culture Blood culture incubation started Blood culture Site #2 - Suspected Infection Collection Time: 01/22/25 8:17 PM Specimen: Blood, Venous Result Value Ref Range Blood Culture Blood culture incubation started Complete Urinalysis with reflex to Culture Collection Time: 01/22/25 8:24 PM Result Value Ref Range Color, Urine Yellow Lt. Yellow Clarity, Urine Extra Turbid (A) Clear pH, Urine 7.5 5.0 - 8.0 pH Leukocytes, Urine 500 (A) Negative Loren/uL Nitrite, Urine Negative Negative Protein, Urine 50 (A) Negative mg/dL Glucose, Urine Normal Normal (<70) mg/dL Bilirubin, Urine Negative Negative mg/dL Ketones, Urine Negative Negative mg/dL Urobilinogen, Urine Normal Normal (0-1) mg/dL Blood, Urine 1.0 (A) Negative mg/dL RBC, Urine 51-100 (A) 0 - 2 /HPF WBC, Urine >100 (A) 0 - 5 /HPF Squamous Epithelial, Urine Negative 3 - 5 /HPF Bacteria, Urine Few (A) Negative /HPF WBC Clumps, Urine Many (A) Negative /HPF SPECIFIC GRAVITY OF URINE (NUMERIC) 1.011 1.005 - 1.030 Urine Hold Cup Collection Time: 01/22/25 8:24 PM Result Value Ref Range Extra Tube Hold for add-ons. Urine Culture: Results for orders placed or performed during the hospital encounter of 03/04/24 Urine culture Collection Time: 03/05/24 1:44 PM Specimen: Urine, Clean Catch Result Value Ref Range Urine Culture No growth (<1,000 CFU/mL) IMAGING: See report Assessment Data: (CAT1) Reviewed 3 or more notes from different specialty or health system (each=1). (CAT1) Reviewed 3 or more labs/studies ordered by another provider not previously counted (each=1, panels count as 1). (CAT1) Ordered 3 or more new labs and/or studies (each=1, panels count as 1). (LOW: 2x CAT1 or independent historian MOD: 3x CAT1 or 1x CAT3 EXTENSIVE: 3x CAT1 and 1x CAT3) Acute, acute on chronic, unstable/uncontrolled chronic problems/diagnoses: Urinary tract infection Vaginal bleeding Bilateral hydronephrosis Stable chronic problems affecting care, new non-acute diagnoses: Parkinson's Constipation Plan As a result of the above findings & factors, the following mgmt was pursued: - continue Zosyn, narrow with culture results - s/p 2L IVF - dowd placed per urology orders - daily labs, trend hemoglobin, monitor for cont. bleeding - bowel regimen - continue home medications - am labs, replace lytes prn - PT/OT/CM/SW - delirium precautions: increase activity and limit nighttime disturbances - DVT prophylaxis:ambulation Complexity: Acute illness or injury posing a threat to life or body function (HIGH). Risk: Admission to hospital-level care was considered or occurred (HIGH). Advance Directive: Full Code Anticipated Discharge - Date - TBD - Location - Home - Pending the following - drying room attendant intervention Total time spent (which include face to face and non face to face encounters) : greater than 35 minutes Extended Emergency Contact Information Primary Emergency Contact: Shelton Merchant Mobile Relation: Son Preferred language: Colombian Venture Capitalist needed? No Secondary Emergency Contact: Clementina Merchant Mobile Relation: [id number] Candelaria Pineda NP [facility] [1] Past Medical History: Diagnosis Date Arthritis Cancer (CMS/HCC) (HCC) Disease of thyroid gland [2] Past Surgical History: Procedure Laterality Date BACK SURGERY CHOLECYSTECTOMY COLON SURGERY THYMECTOMY stated per patient, for cancer removal [3] carbidopa-levodopa CR, 1 tablet, Oral, TID lactated ringers, 1,000 mL, IntraVENous, Once [START ON 01/23/2025] levothyroxine, 75 mcg, Oral, qAM AC megestrol, 20 mg, Oral, BID WC [START ON 01/23/2025] piperacillin-tazobactam, 4,500 mg, IntraVENous, q8h [START ON 01/23/2025] vancomycin, 750 mg, IntraVENous, q24h vancomycin, 1,500 mg, IntraVENous, Once [4] [5] PRN medications: ondansetron ODT OR ondansetron, polyethylene glycol (PEG) 3350 [6] No family history on file. Cosigned by Sam Machado MD at 01/23/2025 7:18 AM EDT [facility] 01-22-2025 Note Urology Plan of Care 64 y.o. female w/ mandi hydro in the setting of potential infection Plan: - dowd for maximal drainage of urinary tract - plan to keep until afebrile x 24 hours - will plan for void trial prior to discharge - send UA and Ucx - agree w/ IV abx: Vanc, Zosyn - follow cultures and adjust per sensitivities - trend labs and fever curve - remainder of care per primary team - please page urology if pt deteriorates as this may necessitate urgent intervention Please call/text or Epic message with non-urgent questions/concerns and otherwise page the urology resident senior reservations agent if needed Jay Black MD PGY-3 Urology 01/22/25 8:34 PM [facility] 01-22-2025 Plan of care note Images from the original note were not included. Urology Plan of Care 64 y.o. female w/ mandi hydro in the setting of potential infection Plan: - dowd for maximal drainage of urinary tract - plan to keep until afebrile x 24 hours - will plan for void trial prior to discharge - send UA and Ucx - agree w/ IV abx: Vanc, Zosyn - follow cultures and adjust per sensitivities - trend labs and fever curve - remainder of care per primary team - please page urology if pt deteriorates as this may necessitate urgent intervention Please call/text or Epic message with non-urgent questions/concerns and otherwise page the urology resident senior reservations agent if needed Jay Black MD PGY-3 Urology 01/22/25 8:34 PM [facility] 01-22-2025 food and beverage manager Note SEP- CORE MEASURE DATA SIRS Criteria Sepsis Criteria Severe Sepsis Criteria Septic Shock Criteria Must meet 2: [x] Temperature > 100.4 F (38 C) or < 96.8 F (36 C) [x] HR > 90 [] RR > 20 [x] WBC > 12 or < 4 or 10% bands Must be confirmed or suspected to move forward with diagnosis of sepsis. Must select at least one: [x] Bacterial Infection Confirmed or Suspected. [] Viral Infection Confirmed or Suspected. [] Fungal Infection Confirmed or Suspected. [] No infection present. Patient does not meet criteria for Sepsis. Must meet 1: [] Lactate > 2 or [] Signs of Organ Dysfunction: - SBP < 90 or MAP < 65 - Altered mental status - Creatinine > 2 or increased from baseline - Urine Output < 0.5 ml/kg/hr - Bilirubin > 2 - INR > 1.5 - Platelets < 100,000 - Acute Respiratory Failure as evidenced by new need for NIPPV or mechanical ventilation [] No criteria met for Severe Sepsis. Must meet 1: [] Lactate = or > 4 or [] SBP < 90 or MAP < 65 for at least two readings in the first hour after fluid bolus administration [] No criteria met for Septic Shock. No data found. Recent Labs 01/22/25 0409 WBC 17.0* CREATININE 1.83* INR 1.2* PLT 221 Sepsis Identified at 1912 hours. Fluid Resuscitation Rational: starting with 1 L LR bolus given CKD Infection Source: Unknown Reassessment Exam: Not applicable. Patient does not have Septic Shock. Tonny Mendoza DO [facility] 01-22-2025 Consult note Associated Order (s): IP CONSULT TO UROLOGY Urology Consult 01/22/2025 HISTORY OF PRESENT ILLNESS: The patient is a 64 y.o. female, known to our service, with past medical history as listed below and significant for CKD, kidney stones, gross hematuria, and OAB s/p interstim and botox trial. She is here for vaginal bleeding. Workup included noting abnormal bladder and ureteral imaging detailed below. According to the patient she had vaginal bleeding that began Wednesday and has since subsided. The patient reports she has followed with urogynecology for LUTS with placement of neurostim and bladder botox, both without resolution of symptoms. She also has a history of kidney stones in the past 1-2 years. She currently reports suprapubic pain that she states has been constant for years but has not gotten acutely worse. She denies nausea/vomiting, current fevers/chills, and shortness of breath. On evaluation, she is AF and HDS. Labs and imaging are outlined below. Urology consulted for evaluation and management. ED/Hospital workup Cr 1.83 (BL ~1.5) ; WBC 17; HGB 8.5; no blood thinners; CT ([facility]) - thickened bladder wall with heterogenous echogenic debris PAST MEDICAL HISTORY: Medical History[1] PAST SURGICAL HISTORY: Surgical History[2] ALLERGIES: Allergies[3] HOME MEDICATIONS: Prescriptions Prior to Admission[4] FAMILY HISTORY: Family History[5] Social History: Tobacco Use History[6] Social History Substance and Sexual Activity Alcohol Use Never ROS: Constitutional: see HPI for chills and fevers HEENT: no blurry vision or eye redness Respiratory: negative for hemoptysis and shortness of breath Cardiovascular: negative for dyspnea and syncope Gastrointestinal: negative for jaundice, see HPI regarding nausea and vomiting Genitourinary: see HPI Hematologic/lymphatic: negative for bleeding Integumentary: no new bruises or lesions Musculoskeletal:negative for muscle weakness Neurological: negative for coordination problems and seizures All other systems negative PHYSICAL EXAM: VITALS: Vitals: 01/22/25 0352 01/22/25 0622 01/22/25 0804 BP: 103/57 93/57 128/68 Pulse: 102 99 90 Resp: 18 18 18 Temp: 37.7 C (99.9 F) TempSrc: Oral SpO2: 94% 99% 98% Weight: 169 lb (76.7 kg) Height: 5' 5.5 (1.664 m) General: Alert, in no acute distress Head: Normocephalic, atraumatic Respiratory: no respiratory distress, normal effort, no audible wheezes Cardiovascular: regular pulse and no cyanosis Abdomen: soft, non distended, non tender : No R. flank TTP, No L. flank TTP, and + suprapubic TTP DATA: LABS: BMP: Lab Results Component Value Date NA 135 (L) 01/22/2025 K 3.6 01/22/2025 CL 106 01/22/2025 CO2 21 (L) 01/22/2025 BUN 28 (H) 01/22/2025 CREATININE 1.83 (H) 01/22/2025 CALCIUM 8.4 (L) 01/22/2025 GLUCOSE 119 (H) 01/22/2025 CBC: Lab Results Component Value Date WBC 17.0 (H) 01/22/2025 HGB 8.5 (L) 01/22/2025 HCT 26.3 (L) 01/22/2025 MCV 83.5 01/22/2025 PLT 221 01/22/2025 RADIOLOGY: No orders to display IMPRESSION: 64 y.o. female with notable hx of CKD, kidney stones, gross hematuria, and OAB s/p interstim and botox trial. Presents with vaginal bleeding and consulted for outside imaging report of possible bladder wall thickening, heterogenous echogenic debris, and bilateral hydronephrosis WBC 17 Hgb 8.5 Cr 1.83 (bl ~1.5) PLAN: - Outside images read suggest bladder wall thickening and bilateral hydronephrosis - Will obtain CT abd/pel since unable to see outside images Pyelograms - Pending CT results, can consider possible cystoscopy and retrograde pyelogram - OB following, appreciate recs - Possible hysteroscopy D&C. If desired, can attempt coordination of hysteroscopy and cystoscopy while inpatient - Due to reported hydro, will get PVR. If retaining significant volume, recommend dowd catheter - Remainder of care per primary - Please reach out to urology with any questions or concerns Thank you for allowing me to participate in the care of your patient Marlon Viramontes MD PGY-1 Urology 01/22/25 8:57 AM [1] Past Medical History: Diagnosis Date Arthritis Cancer (CMS/HCC) (HCC) Disease of thyroid gland [2] Past Surgical History: Procedure Laterality Date BACK SURGERY CHOLECYSTECTOMY COLON SURGERY THYMECTOMY stated per patient, for cancer removal [3] Allergies Allergen Reactions Azithromycin Diarrhea Severe diarrhea Seasonal Other Stuffy/runny nose [4] Medications Prior to Admission Medication Sig Dispense Refill Last Dose/Taking amitriptyline (Elavil) 75 MG tablet Take 75 mg by mouth Nightly. AVS from 03/03 from [facility] with Dr. Benitez states: discontinue the elavil for now - we will taper it down. Take 50 mg 4-5 days, then take 25 mg for 4-5 days then stop. (Patient not taking: Reported on 04/07/2024) Apoaequorin (Prevagen) 10 MG capsule Take 10 mg by mouth daily. (Patient not taking: Reported on 04/07/2024) aspirin 81 MG EC tablet Take 81 mg by mouth in the morning. biotin 5000 MCG capsule Take 5,000 mcg by mouth daily. OTC per patient Calcium Carb-Cholecalciferol 600-10 MG-MCG tablet Take 1 tablet by mouth in the morning and 1 tablet in the evening. fluconazole (Diflucan) 200 MG tablet Take 200 mg by mouth daily. fludrocortisone (Florinef) 0.1 MG tablet Take 1 tablet (0.1 mg) by mouth 2 times daily. 60 tablet 0 levothyroxine (Synthroid, Levoxyl) 75 MCG tablet Take 75 mcg by mouth every morning (before breakfast). mycophenolate (Cellcept) 500 MG tablet Take 1,000 mg by mouth 2 times daily. 1000 mg in morning and 500 at night per patient ondansetron (Zofran) 4 MG tablet Take 4 mg by mouth every 8 hours as needed for nausea or vomiting. New prescription, unsure of times or dose (Patient not taking: Reported on 04/07/2024) [5] No family history on file. [6] Social History Tobacco Use Smoking Status Never Smokeless Tobacco Never Cosigned by Ricki Ceballos MD at 01/23/2025 12:44 PM EDT Associated attestation - Ricki Ceballos MD - 01/23/2025 12:44 PM EDT I saw and evaluated the patient, participating in the alberts portions of the service. I reviewed the resident s note. I agree with the resident s findings and plan. Thickened bladder, MANJIT on CKD and bilateral hydronephrosis, suggestive of neurogenic bladder, high pressure. She can go home with catheter, repeat renal US and void trial outpatient. She may benefit from UDS and anticholinergic vs botox Ricki Ceballos MD [facility] [employer] Work Phone: 01-22-2025 Consult note Associated Order (s): IP CONSULT TO LOAN INTERVIEWER Images from the original note were not included. AUTOM[employer] SERVICE PROFESSIONAL Consult Please page the [facility] OBGYN Call RES group via Secure Chat for any questions or concerns. Patient Name: Eren Merchant Patient : 1960 Room/Bed: [facility] Admission Date/Time: 01/22/2025 3:42 AM Primary Care Physician: Priyanka Smith HPI: Eren Merchant is a 64 y.o. female presenting as transfer from OSH for heavy vaginal bleeding. She is postmenopausal and her last LMP was 12 years ago. She states her bleeding started Wednesday morning and has gone through 3-4 packs of maxi pads since. She received 1 unit of blood and had to stop the second unit 2/2 spiking a fever. She states her bleeding has slowed down and only has noticed blood in the bedside commode with wiping. She denies being on blood thinners. Denies abdominal pain and pelvic pain Medical Hx: Parkinson's, hx thymic cancer treated with surgery, overactive bladder Surgical Hx: Back surgery, cholecystectomy, thymectomy, cystoscopy REVIEW OF SYSTEMS: A minimum of an eleven point review of systems was completed. Review of Systems Constitutional: Negative for chills and fever. Respiratory: Negative for shortness of breath. Cardiovascular: Negative for chest pain. Gastrointestinal: Negative for abdominal pain, constipation, diarrhea, nausea and vomiting. Genitourinary: Positive for vaginal bleeding. Negative for dysuria, pelvic pain, vaginal discharge and vaginal pain. Social History: TOBACCO: reports that she has never smoked. She has never used smokeless tobacco. ETOH: reports no history of alcohol use. GYNECOLOGICAL HISTORY: Menstrual History: postmenopausal. Pap History: Hx of abnormal paps in the past with colposcopy, denies LEEP/CKC PAST MEDICAL HISTORY: Past Medical History Diagnosis Date Arthritis Cancer (CMS/HCC) (HCC) Disease of thyroid gland PAST SURGICAL HISTORY: Past Surgical History Procedure Laterality Date BACK SURGERY CHOLECYSTECTOMY COLON SURGERY THYMECTOMY stated per patient, for cancer removal ALLERGIES: Allergen Reactions Azithromycin Diarrhea Severe diarrhea Seasonal Other Stuffy/runny nose MEDICATIONS: Current Outpatient Medications: amitriptyline (Elavil) 75 MG tablet, Take 75 mg by mouth Nightly. AVS from 03/03 from [facility] with Dr. Benitez states: discontinue the elavil for now - we will taper it down. Take 50 mg 4-5 days, then take 25 mg for 4-5 days then stop. (Patient not taking: Reported on 04/07/2024), Disp: , Rfl: Apoaequorin (Prevagen) 10 MG capsule, Take 10 mg by mouth daily. (Patient not taking: Reported on 04/07/2024), Disp: , Rfl: aspirin 81 MG EC tablet, Take 81 mg by mouth in the morning., Disp: , Rfl: biotin 5000 MCG capsule, Take 5,000 mcg by mouth daily. OTC per patient, Disp: , Rfl: Calcium Carb-Cholecalciferol 600-10 MG-MCG tablet, Take 1 tablet by mouth in the morning and 1 tablet in the evening., Disp: , Rfl: fluconazole (Diflucan) 200 MG tablet, Take 200 mg by mouth daily., Disp: , Rfl: fludrocortisone (Florinef) 0.1 MG tablet, Take 1 tablet (0.1 mg) by mouth 2 times daily., Disp: 60 tablet, Rfl: 0 levothyroxine (Synthroid, Levoxyl) 75 MCG tablet, Take 75 mcg by mouth every morning (before breakfast)., Disp: , Rfl: mycophenolate (Cellcept) 500 MG tablet, Take 1,000 mg by mouth 2 times daily. 1000 mg in morning and 500 at night per patient, Disp: , Rfl: ondansetron (Zofran) 4 MG tablet, Take 4 mg by mouth every 8 hours as needed for nausea or vomiting. New prescription, unsure of times or dose (Patient not taking: Reported on 04/07/2024), Disp: , Rfl: FAMILY HISTORY: Family History of Breast, Ovarian, Colon or Uterine Cancer: No family history is not on file. SOCIAL HISTORY: Social Connections: Moderately Isolated (12/11/2024) Received from [facility] Social Connection and Isolation Panel [NHANES] Frequency of Communication with Friends and Family: More than three times a week Frequency of Social Gatherings with Friends and Family: Once a week Attends Anglican Services: 1 to 4 times per year Active Member of Clubs or Organizations: No Attends Club or Organization Meetings: Never Marital Status: Medications: Current Inpatient [Current Medications] [Current Medications] No current facility-administered medications for this encounter. Current Outpatient Medications Medication Sig Dispense Refill amitriptyline (Elavil) 75 MG tablet Take 75 mg by mouth Nightly. AVS from 03/03 from [facility] with Dr. Benitez states: discontinue the elavil for now - we will taper it down. Take 50 mg 4-5 days, then take 25 mg for 4-5 days then stop. (Patient not taking: Reported on 04/07/2024) Apoaequorin (Prevagen) 10 MG capsule Take 10 mg by mouth daily. (Patient not taking: Reported on 04/07/2024) aspirin 81 MG EC tablet Take 81 mg by mouth in the morning. biotin 5000 MCG capsule Take 5,000 mcg by mouth daily. OTC per patient Calcium Carb-Cholecalciferol 600-10 MG-MCG tablet Take 1 tablet by mouth in the morning and 1 tablet in the evening. fluconazole (Diflucan) 200 MG tablet Take 200 mg by mouth daily. fludrocortisone (Florinef) 0.1 MG tablet Take 1 tablet (0.1 mg) by mouth 2 times daily. 60 tablet 0 levothyroxine (Synthroid, Levoxyl) 75 MCG tablet Take 75 mcg by mouth every morning (before breakfast). mycophenolate (Cellcept) 500 MG tablet Take 1,000 mg by mouth 2 times daily. 1000 mg in morning and 500 at night per patient ondansetron (Zofran) 4 MG tablet Take 4 mg by mouth every 8 hours as needed for nausea or vomiting. New prescription, unsure of times or dose (Patient not taking: Reported on 04/07/2024) VITALS: BP 93/57 Pulse 99 Temp 37.7 C (99.9 F) (Oral) Resp 18 Ht 5' 5.5 (1.664 m) Wt 169 lb (76.7 kg) LMP (LMP Unknown) SpO2 99% BMI 27.70 kg/m PHYSICAL EXAM: Physical Exam Vitals reviewed. Constitutional: General: She is not in acute distress. Appearance: Normal appearance. She is not ill-appearing, toxic-appearing or diaphoretic. HENT: Head: Normocephalic and atraumatic. Cardiovascular: Rate and Rhythm: Tachycardia present. Pulmonary: Effort: Pulmonary effort is normal. No respiratory distress. Abdominal: General: There is no distension. Palpations: Abdomen is soft. Tenderness: There is no abdominal tenderness. There is no guarding or rebound. Genitourinary: Vagina: No bleeding. Cervix: No cervical bleeding. Comments: Visually stenotic cervix without active bleeding from the cervical os, no blood pooling in vaginal vault. Cervix is flush with posterior vaginal wall. Atrophic vaginal tissue Musculoskeletal: Cervical back: Normal range of motion. Skin: General: Skin is warm and dry. Neurological: Mental Status: She is alert and oriented to person, place, and time. Psychiatric: Mood and Affect: Mood normal. Behavior: Behavior normal. LAB RESULTS: Lab Results Component Value Date WBC 17.0 (H) 01/22/2025 HGB 8.5 (L) 01/22/2025 HCT 26.3 (L) 01/22/2025 MCV 83.5 01/22/2025 PLT 221 01/22/2025 Lab Results Component Value Date NA 135 (L) 01/22/2025 K 3.6 01/22/2025 CL 106 01/22/2025 CO2 21 (L) 01/22/2025 BUN 28 (H) 01/22/2025 CREATININE 1.83 (H) 01/22/2025 GLUCOSE 119 (H) 01/22/2025 CALCIUM 8.4 (L) 01/22/2025 DIAGNOSTICS: ECG 12 lead Result Date: 01/22/2025 Sinus rhythm Ventricular premature complex Borderline left axis deviation Low voltage, precordial leads Borderline T abnormalities, diffuse leads ASSESSMENT & PLAN: Eren Merchant is a 64 y.o. female presenting as transfer from OSH for heavy vaginal bleeding Vaginal Bleeding - Patient presents from OSH for 2 days of heavy vaginal bleeding, soaking through 3-4 packs of maxi pads - Postmenopausal since 2002 with hx of abnormal Paps and colposcopy. Denies LEEP/CKC procedures - S/p 1 unit of PRBCs but could not received the 2nd unit due to fever - En route to [facility] ED, patient became hypotensive and was given additional 500cc fluid bolus - Patient has been slightly tachycardic in the ED but otherwise vitally stable - Hgb on admission 8.5 - TVUS obtained from outside facility reviewed in patient room. Fluid filled endometrial cavity with a thickness of 12.1mm, including the fluid. Possible left hydrosalpinx vs dilated ureter. Fluid filled structure in midline of pelvis that may represent urinary bladder in which there is heterogenous echogenic debris. - Speculum exam shows visually stenotic cervix without active bleeding from the cervical os, no blood pooling in vaginal vault. Cervix is flush with posterior vaginal wall. Atrophic vaginal tissue - Plan to admit patient to monitor bleeding and treat with Megace 20mg BID - Urology consult for US and CT findings of thickened bladder wall with heterogenous echogenic debris, recommended urology evaluation Patient Active Problem List Diagnosis Esophageal dysmotility Hyponatremia Chronic interstitial cystitis ILD (interstitial lung disease) (HCC) Lung nodules NSIP (nonspecific interstitial pneumonitis) ([facility] Stage 3a chronic kidney disease (HCC) Post-menopausal bleeding Acquired hypothyroidism Hydronephrosis with urinary obstruction due to ureteral calculus Vaginal bleeding 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 Patient presents with Vaginal Bleeding Transfer from [facility] for a REFERENCE TEST CLERK/ONC consult. Started to bleed heavily Wednesday morning going thru approx 70 maxi pads. +clots. Received 1 unit of PRBCs @ [facility] but didn't receive full second unit d/t increased temperature. Per EMS she became hypotensive for 90s/50s and was given a 500cc bolus. Pt has no other complaints, just the bleeding. 1. Vaginal bleeding Plan discussed with Dr. Chang, who is agreeable. Please page the [facility] O[facility]YN Call RES group via Secure Chat for any questions or concerns. Tonny Mendoza DO 01/22/2025, 6:41 AM Cosigned by Jennie Chang DO at 01/22/2025 6:50 AM EDT Associated attestation - Jennie Chang DO - 01/22/2025 6:50 AM EDT See H&P for attestation. [employer] 01-22-2025 History and physical note Images from the original note were not included. AUTOM[employer]IVE SERVICE PROFESSIONAL H&P Please page the [facility] OBGYN Call RES group via Secure Chat for any questions or concerns. Patient Name: Eren Merchant Patient : 1960 Room/Bed: [facility] Admission Date/Time: 01/22/2025 3:42 AM Primary Care Physician: Priyanka Smith HPI: Eren Merchant is a 64 y.o. female presenting as transfer from [facility] for heavy vaginal bleeding. She is postmenopausal and her last LMP was 12 years ago. She states her bleeding started Wednesday morning and has gone through 3-4 packs of maxi pads since. She received 1 unit of blood and had to stop the second unit 2/2 spiking a fever. She states her bleeding has slowed down and only has noticed blood in the bedside commode with wiping. She denies being on blood thinners. Denies abdominal pain and pelvic pain Medical Hx: Parkinson's, hx thymic cancer treated with surgery, overactive bladder Surgical Hx: Back surgery, cholecystectomy, thymectomy, cystoscopy REVIEW OF SYSTEMS: A minimum of an eleven point review of systems was completed. Review of Systems Review of Systems Constitutional: Negative for chills and fever. Respiratory: Negative for shortness of breath. Cardiovascular: Negative for chest pain. Gastrointestinal: Negative for abdominal pain, constipation, diarrhea, nausea and vomiting. Genitourinary: Positive for vaginal bleeding. Negative for dysuria, pelvic pain, vaginal discharge and vaginal pain. Social History: TOBACCO: reports that she has never smoked. She has never used smokeless tobacco. ETOH: reports no history of alcohol use. GYNECOLOGICAL HISTORY: Menstrual History: Postmenopausal Pap History: Hx of abnormal paps in the past with colposcopy, denies LEEP/CKC Contraception: postmenopausal OBSTETRICAL HISTORY: OB History No obstetric history on file. PAST MEDICAL HISTORY: Medical History[1] PAST SURGICAL HISTORY: Surgical History[2] ALLERGIES: Allergies[3] MEDICATIONS: Current Medications[4] FAMILY HISTORY: Family History of Breast, Ovarian, Colon or Uterine Cancer: No family history is not on file. SOCIAL HISTORY: Social Connections: Moderately Isolated (12/11/2024) Received from [facility] Social Connection and Isolation Panel [NHANES] Frequency of Communication with Friends and Family: More than three times a week Frequency of Social Gatherings with Friends and Family: Once a week Attends Anglican Services: 1 to 4 times per year Active Member of Clubs or Organizations: No Attends Club or Organization Meetings: Never Marital Status: Medications: Current Inpatient Current Medications[5] VITALS: BP 93/57 Pulse 99 Temp 37.7 C (99.9 F) (Oral) Resp 18 Ht 5' 5.5 (1.664 m) Wt 169 lb (76.7 kg) LMP (LMP Unknown) SpO2 99% BMI 27.70 kg/m PHYSICAL EXAM: Physical Exam Vitals reviewed. Constitutional: General: She is not in acute distress. Appearance: Normal appearance. She is not ill-appearing, toxic-appearing or diaphoretic. HENT: Head: Normocephalic and atraumatic. Cardiovascular: Rate and Rhythm: Tachycardia present. Pulmonary: Effort: Pulmonary effort is normal. No respiratory distress. Abdominal: General: There is no distension. Palpations: Abdomen is soft. Tenderness: There is no abdominal tenderness. There is no guarding or rebound. Genitourinary: Vagina: No bleeding. Cervix: No cervical bleeding. Comments: Visually stenotic cervix without active bleeding from the cervical os, no blood pooling in vaginal vault. Cervix is flush with posterior vaginal wall. Atrophic vaginal tissue Musculoskeletal: Cervical back: Normal range of motion. Skin: General: Skin is warm and dry. Neurological: Mental Status: She is alert and oriented to person, place, and time. Psychiatric: Mood and Affect: Mood normal. Behavior: Behavior normal. LAB RESULTS: Lab Results Component Value Date WBC 17.0 (H) 01/22/2025 HGB 8.5 (L) 01/22/2025 HCT 26.3 (L) 01/22/2025 MCV 83.5 01/22/2025 PLT 221 01/22/2025 Lab Results Component Value Date NA 135 (L) 01/22/2025 K 3.6 01/22/2025 CL 106 01/22/2025 CO2 21 (L) 01/22/2025 BUN 28 (H) 01/22/2025 CREATININE 1.83 (H) 01/22/2025 GLUCOSE 119 (H) 01/22/2025 CALCIUM 8.4 (L) 01/22/2025 Urinalysis: No results found for: CLARITYU, COLORU, PHUR, SPECGRAV, PROTEINU, BLOODU, BACTERIA, LEUKOCYTESUR, YEAST, GLUCOSEU, BILIRUBINUR DIAGNOSTICS: ECG 12 lead Result Date: 01/22/2025 Sinus rhythm Ventricular premature complex Borderline left axis deviation Low voltage, precordial leads Borderline T abnormalities, diffuse leads ASSESSMENT & PLAN: Eren Merchant is a 64 y.o. female presenting as transfer from OSH for heavy vaginal bleeding Vaginal Bleeding - Patient presents from OSH for 2 days of heavy vaginal bleeding, soaking through 3-4 packs of maxi pads - Postmenopausal since 2002 with hx of abnormal Paps and colposcopy. Denies LEEP/CKC procedures - S/p 1 unit of PRBCs but could not received the 2nd unit due to fever - En route to [facility] ED, patient became hypotensive and was given additional 500cc fluid bolus - Patient has been slightly tachycardic in the ED but otherwise vitally stable - Hgb on admission 8.5 - TVUS obtained from outside facility reviewed in patient room. Fluid filled endometrial cavity with a thickness of 12.1mm, including the fluid. Possible left hydrosalpinx vs dilated ureter. Fluid filled structure in midline of pelvis that may represent urinary bladder in which there is heterogenous echogenic debris. - Speculum exam shows visually stenotic cervix without active bleeding from the cervical os, no blood pooling in vaginal vault. Cervix is flush with posterior vaginal wall. Atrophic vaginal tissue - Plan to admit patient to monitor bleeding and treat with Megace 20mg BID - Urology consult for US and CT findings of thickened bladder wall with heterogenous echogenic debris, recommended urology evaluation Problem List[6] 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 Patient presents with Vaginal Bleeding Transfer from [facility] for a REFERENCE TEST CLERK/ONC consult. Started to bleed heavily Wednesday morning going thru approx 70 maxi pads. +clots. Received 1 unit of PRBCs @ [facility] but didn't receive full second unit d/t increased temperature. Per EMS she became hypotensive for 90s/50s and was given a 500cc bolus. Pt has no other complaints, just the bleeding. 1. Vaginal bleeding Plan discussed with Dr. Chang, who is agreeable. Please page the [facility] O[facility] Call RES group via Secure Chat for any questions or concerns. Tonny Mendoza, DO 01/22/2025, 6:41 AM [1] Past Medical History: Diagnosis Date Arthritis Cancer (CMS/HCC) (HCC) Disease of thyroid gland [2] Past Surgical History: Procedure Laterality Date BACK SURGERY CHOLECYSTECTOMY COLON SURGERY THYMECTOMY stated per patient, for cancer removal [3] Allergies Allergen Reactions Azithromycin Diarrhea Severe diarrhea Seasonal Other Stuffy/runny nose [4] No current facility-administered medications for this encounter. Current Outpatient Medications: amitriptyline (Elavil) 75 MG tablet, Take 75 mg by mouth Nightly. AVS from 03/03 from [facility] with Dr. Benitez states: discontinue the elavil for now - we will taper it down. Take 50 mg 4-5 days, then take 25 mg for 4-5 days then stop. (Patient not taking: Reported on 04/07/2024), Disp: , Rfl: Apoaequorin (Prevagen) 10 MG capsule, Take 10 mg by mouth daily. (Patient not taking: Reported on 04/07/2024), Disp: , Rfl: aspirin 81 MG EC tablet, Take 81 mg by mouth in the morning., Disp: , Rfl: biotin 5000 MCG capsule, Take 5,000 mcg by mouth daily. OTC per patient, Disp: , Rfl: Calcium Carb-Cholecalciferol 600-10 MG-MCG tablet, Take 1 tablet by mouth in the morning and 1 tablet in the evening., Disp: , Rfl: fluconazole (Diflucan) 200 MG tablet, Take 200 mg by mouth daily., Disp: , Rfl: fludrocortisone (Florinef) 0.1 MG tablet, Take 1 tablet (0.1 mg) by mouth 2 times daily., Disp: 60 tablet, Rfl: 0 levothyroxine (Synthroid, Levoxyl) 75 MCG tablet, Take 75 mcg by mouth every morning (before breakfast)., Disp: , Rfl: mycophenolate (Cellcept) 500 MG tablet, Take 1,000 mg by mouth 2 times daily. 1000 mg in morning and 500 at night per patient, Disp: , Rfl: ondansetron (Zofran) 4 MG tablet, Take 4 mg by mouth every 8 hours as needed for nausea or vomiting. New prescription, unsure of times or dose (Patient not taking: Reported on 04/07/2024), Disp: , Rfl: [5] No current facility-administered medications for this encounter. Current Outpatient Medications Medication Sig Dispense Refill amitriptyline (Elavil) 75 MG tablet Take 75 mg by mouth Nightly. AVS from 03/03 from [facility] with Dr. Benitez states: discontinue the elavil for now - we will taper it down. Take 50 mg 4-5 days, then take 25 mg for 4-5 days then stop. (Patient not taking: Reported on 04/07/2024) Apoaequorin (Prevagen) 10 MG capsule Take 10 mg by mouth daily. (Patient not taking: Reported on 04/07/2024) aspirin 81 MG EC tablet Take 81 mg by mouth in the morning. biotin 5000 MCG capsule Take 5,000 mcg by mouth daily. OTC per patient Calcium Carb-Cholecalciferol 600-10 MG-MCG tablet Take 1 tablet by mouth in the morning and 1 tablet in the evening. fluconazole (Diflucan) 200 MG tablet Take 200 mg by mouth daily. fludrocortisone (Florinef) 0.1 MG tablet Take 1 tablet (0.1 mg) by mouth 2 times daily. 60 tablet 0 levothyroxine (Synthroid, Levoxyl) 75 MCG tablet Take 75 mcg by mouth every morning (before breakfast). mycophenolate (Cellcept) 500 MG tablet Take 1,000 mg by mouth 2 times daily. 1000 mg in morning and 500 at night per patient ondansetron (Zofran) 4 MG tablet Take 4 mg by mouth every 8 hours as needed for nausea or vomiting. New prescription, unsure of times or dose (Patient not taking: Reported on 04/07/2024) [6] Patient Active Problem List Diagnosis Esophageal dysmotility Hyponatremia Chronic interstitial cystitis ILD (interstitial lung disease) (HCC) Lung nodules NSIP (nonspecific interstitial pneumonitis) ([facility]) Stage 3a chronic kidney disease (HCC) Post-menopausal bleeding Acquired hypothyroidism Hydronephrosis with urinary obstruction due to ureteral calculus Vaginal bleeding Cosigned by Jennie Chang DO at 01/22/2025 6:59 AM EDT Associated attestation - Jennie Chang, - 01/22/2025 6:59 AM EDT Hospital Care (Present): I was present with the resident during the history and exam. I discussed the case with the resident and agree with the findings and plan as documented in the resident's note. Eren Merchant is a 64 y.o. presented to [facility] for heavy vaginal bleeding. At [facility] ED, found to be hypotensive and tachycardic. Hgb dropped from baseline ~12 to 8. Patient received 1 unit pRBCs, 2nd unit started but had to be stopped due to fever. TVUS showed fluid filled endometrium with endometrial thickness of 12.[address] A/P with thickened bladder wall and heterogenous debris. Patient transferred to [facility] ED for AUTOMOTIVE SERVICE PROFESSIONAL evaluation. In ED here, patient slightly tachycardic to 100's. Hgb stable at 8.5. Pelvic exam showed atrophic vagina and stenotic cervix. No blood in vaginal vault. Plan to admit for observation to REFERENCE TEST CLERK service given acute blood loss anemia requiring transfusion. Start Megace 20 mg BID. Will consult urology given abnormal bladder findings. Discussed with patient need for uterine sampling, likely to be done outpatient with primary AUTOMOTIVE SERVICE PROFESSIONAL at [facility]. [facility] 01-22-2025 Note Attestation signed by Jennie Chang DO at 01/22/2025 6:59 AM Hospital Care (Present): I was present with the resident during the history and exam. I discussed the case with the resident and agree with the findings and plan as documented in the resident's note. Eren Merchant is a 64 y.o. presented to [facility] for heavy vaginal bleeding. At [facility] ED, found to be hypotensive and tachycardic. Hgb dropped from baseline ~12 to 8. Patient received 1 unit pRBCs, 2nd unit started but had to be stopped due to fever. TVUS showed fluid filled endometrium with endometrial thickness of 12.[address] A/P with thickened bladder wall and heterogenous debris. Patient transferred to [facility] ED for AUTOMOTIVE SERVICE PROFESSIONAL evaluation. In ED here, patient slightly tachycardic to 100's. Hgb stable at 8.5. Pelvic exam showed atrophic vagina and stenotic cervix. No blood in vaginal vault. Plan to admit for observation to REFERENCE TEST CLERK service given acute blood loss anemia requiring transfusion. Start Megace 20 mg BID. Will consult urology given abnormal bladder findings. Discussed with patient need for uterine sampling, likely to be done outpatient with primary AUTOMOTIVE SERVICE PROFESSIONAL at [facility]. AUTOMOTIVE SERVICE PROFESSIONAL H&P Please page the [facility] OBGYN Call RES group via Secure Chat for any questions or concerns. Patient Name: Eren Mecrhant Patient : 1960 Room/Bed: [facility] Admission Date/Time: 01/22/2025 3:42 AM Primary Care Physician: Priyanka Smith HPI: Eren Merchant is a 64 y.o. female presenting as transfer from [facility] for heavy vaginal bleeding. She is postmenopausal and her last LMP was 12 years ago. She states her bleeding started Saturday morning and has gone through 3-4 packs of maxi pads since. She received 1 unit of blood and had to stop the second unit 2/2 spiking a fever. She states her bleeding has slowed down and only has noticed blood in the bedside commode with wiping. She denies being on blood thinners. Denies abdominal pain and pelvic pain Medical Hx: Parkinson's, hx thymic cancer treated with surgery, overactive bladder Surgical Hx: Back surgery, cholecystectomy, thymectomy, cystoscopy REVIEW OF SYSTEMS: A minimum of an eleven point review of systems was completed. Review of Systems Review of Systems Constitutional: Negative for chills and fever. Respiratory: Negative for shortness of breath. Cardiovascular: Negative for chest pain. Gastrointestinal: Negative for abdominal pain, constipation, diarrhea, nausea and vomiting. Genitourinary: Positive for vaginal bleeding. Negative for dysuria, pelvic pain, vaginal discharge and vaginal pain. Social History: TOBACCO: reports that she has never smoked. She has never used smokeless tobacco. ETOH: reports no history of alcohol use. GYNECOLOGICAL HISTORY: Menstrual History: Postmenopausal Pap History: Hx of abnormal paps in the past with colposcopy, denies LEEP/CKC Contraception: postmenopausal OBSTETRICAL HISTORY: OB History No obstetric history on file. PAST MEDICAL HISTORY: Medical History[1] PAST SURGICAL HISTORY: Surgical History[2] ALLERGIES: Allergies[3] MEDICATIONS: Current Medications[4] FAMILY HISTORY: Family History of Breast, Ovarian, Colon or Uterine Cancer: No family history is not on file. SOCIAL HISTORY: Social Connections: Moderately Isolated (12/11/2024) Received from [facility] Social Connection and Isolation Panel [NHANES] Frequency of Communication with Friends and Family: More than three times a week Frequency of Social Gatherings with Friends and Family: Once a week Attends Anglican Services: 1 to 4 times per year Active Member of Clubs or Organizations: No Attends Club or Organization Meetings: Never Marital Status: Medications: Current Inpatient Current Medications[5] VITALS: BP 93/57 Pulse 99 Temp 37.7 ?C (99.9 ?F) (Oral) Resp 18 Ht 5' 5.5 (1.664 m) Wt 169 lb (76.7 kg) LMP (LMP Unknown) SpO2 99% BMI 27.70 kg/m? PHYSICAL EXAM: Physical Exam Vitals reviewed. Constitutional: General: She is not in acute distress. Appearance: Normal appearance. She is not ill-appearing, toxic-appearing or diaphoretic. HENT: Head: Normocephalic and atraumatic. Cardiovascular: Rate and Rhythm: Tachycardia present. Pulmonary: Effort: Pulmonary effort is normal. No respiratory distress. Abdominal: General: There is no distension. Palpations: Abdomen is soft. Tenderness: There is no abdominal tenderness. There is no guarding or rebound. Genitourinary: Vagina: No bleeding. Cervix: No cervical bleeding. Comments: Visually stenotic cervix without active bleeding from the cervical os, no blo (more content not included)... [facility] 01-22-2025 History and physical note Images from the original note were not included. AUTOMOTIVE SERVICE PROFESSIONAL H&P Please page the [facility] OBGYN Call RES group via Secure Chat for any questions or concerns. Patient Name: Eren Merchant Patient : 1960 Room/Bed: [facility] Admission Date/Time: 01/22/2025 3:42 AM Primary Care Physician: Priyanka Smith HPI: Eren Merchant is a 64 y.o. female presenting as transfer from [facility] for heavy vaginal bleeding. She is postmenopausal and her last LMP was 12 years ago. She states her bleeding started Wednesday morning and has gone through 3-4 packs of maxi pads since. She received 1 unit of blood and had to stop the second unit 2/2 spiking a fever. She states her bleeding has slowed down and only has noticed blood in the bedside commode with wiping. She denies being on blood thinners. Denies abdominal pain and pelvic pain Medical Hx: Parkinson's, hx thymic cancer treated with surgery, overactive bladder Surgical Hx: Back surgery, cholecystectomy, thymectomy, cystoscopy REVIEW OF SYSTEMS: A minimum of an eleven point review of systems was completed. Review of Systems Review of Systems Constitutional: Negative for chills and fever. Respiratory: Negative for shortness of breath. Cardiovascular: Negative for chest pain. Gastrointestinal: Negative for abdominal pain, constipation, diarrhea, nausea and vomiting. Genitourinary: Positive for vaginal bleeding. Negative for dysuria, pelvic pain, vaginal discharge and vaginal pain. Social History: TOBACCO: reports that she has never smoked. She has never used smokeless tobacco. ETOH: reports no history of alcohol use. GYNECOLOGICAL HISTORY: Menstrual History: Postmenopausal Pap History: Hx of abnormal paps in the past with colposcopy, denies LEEP/CKC Contraception: postmenopausal OBSTETRICAL HISTORY: OB History No obstetric history on file. PAST MEDICAL HISTORY: Medical History[1] PAST SURGICAL HISTORY: Surgical History[2] ALLERGIES: Allergies[3] MEDICATIONS: Current Medications[4] FAMILY HISTORY: Family History of Breast, Ovarian, Colon or Uterine Cancer: No family history is not on file. SOCIAL HISTORY: Social Connections: Moderately Isolated (12/11/2024) Received from [facility] Social Connection and Isolation Panel [NHANES] Frequency of Communication with Friends and Family: More than three times a week Frequency of Social Gatherings with Friends and Family: Once a week Attends Anglican Services: 1 to 4 times per year Active Member of Clubs or Organizations: No Attends Club or Organization Meetings: Never Marital Status: Medications: Current Inpatient Current Medications[5] VITALS: BP 93/57 Pulse 99 Temp 37.7 C (99.9 F) (Oral) Resp 18 Ht 5' 5.5 (1.664 m) Wt 169 lb (76.7 kg) LMP (LMP Unknown) SpO2 99% BMI 27.70 kg/m PHYSICAL EXAM: Physical Exam Vitals reviewed. Constitutional: General: She is not in acute distress. Appearance: Normal appearance. She is not ill-appearing, toxic-appearing or diaphoretic. HENT: Head: Normocephalic and atraumatic. Cardiovascular: Rate and Rhythm: Tachycardia present. Pulmonary: Effort: Pulmonary effort is normal. No respiratory distress. Abdominal: General: There is no distension. Palpations: Abdomen is soft. Tenderness: There is no abdominal tenderness. There is no guarding or rebound. Genitourinary: Vagina: No bleeding. Cervix: No cervical bleeding. Comments: Visually stenotic cervix without active bleeding from the cervical os, no blood pooling in vaginal vault. Cervix is flush with posterior vaginal wall. Atrophic vaginal tissue Musculoskeletal: Cervical back: Normal range of motion. Skin: General: Skin is warm and dry. Neurological: Mental Status: She is alert and oriented to person, place, and time. Psychiatric: Mood and Affect: Mood normal. Behavior: Behavior normal. LAB RESULTS: Lab Results Component Value Date WBC 17.0 (H) 01/22/2025 HGB 8.5 (L) 01/22/2025 HCT 26.3 (L) 01/22/2025 MCV 83.5 01/22/2025 PLT 221 01/22/2025 Lab Results Component Value Date NA 135 (L) 01/22/2025 K 3.6 01/22/2025 CL 106 01/22/2025 CO2 21 (L) 01/22/2025 BUN 28 (H) 01/22/2025 CREATININE 1.83 (H) 01/22/2025 GLUCOSE 119 (H) 01/22/2025 CALCIUM 8.4 (L) 01/22/2025 Urinalysis: No results found for: CLARITYU, COLORU, PHUR, SPECGRAV, PROTEINU, BLOODU, BACTERIA, LEUKOCYTESUR, YEAST, GLUCOSEU, BILIRUBINUR DIAGNOSTICS: ECG 12 lead Result Date: 01/22/2025 Sinus rhythm Ventricular premature complex Borderline left axis deviation Low voltage, precordial leads Borderline T abnormalities, diffuse leads ASSESSMENT & PLAN: Eren Merchant is a 64 y.o. female presenting as transfer from OSH for heavy vaginal bleeding Vaginal Bleeding - Patient presents from OSH for 2 days of heavy vaginal bleeding, soaking through 3-4 packs of maxi pads - Postmenopausal since 2002 with hx of abnormal Paps and colposcopy. Denies LEEP/CKC procedures - S/p 1 unit of PRBCs but could not received the 2nd unit due to fever - En route to [facility] ED, patient became hypotensive and was given additional 500cc fluid bolus - Patient has been slightly tachycardic in the ED but otherwise vitally stable - Hgb on admission 8.5 - TVUS obtained from outside facility reviewed in patient room. Fluid filled endometrial cavity with a thickness of 12.1mm, including the fluid. Possible left hydrosalpinx vs dilated ureter. Fluid filled structure in midline of pelvis that may represent urinary bladder in which there is heterogenous echogenic debris. - Speculum exam shows visually stenotic cervix without active bleeding from the cervical os, no blood pooling in vaginal vault. Cervix is flush with posterior vaginal wall. Atrophic vaginal tissue - Plan to admit patient to monitor bleeding and treat with Megace 20mg BID - Urology consult for US and CT findings of thickened bladder wall with heterogenous echogenic debris, recommended urology evaluation Problem List[6] 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 Patient presents with Vaginal Bleeding Transfer from [facility] for a REFERENCE TEST CLERK/ONC consult. Started to bleed heavily Wednesday morning going thru approx 70 maxi pads. +clots. Received 1 unit of PRBCs @ [facility] but didn't receive full second unit d/t increased temperature. Per EMS she became hypotensive for 90s/50s and was given a 500cc bolus. Pt has no other complaints, just the bleeding. 1. Vaginal bleeding Plan discussed with Dr. Chang, who is agreeable. Please page the [facility] OBGYN Call RES group via Secure Chat for any questions or concerns. Tonny Mendoza, DO 01/22/2025, 6:41 AM [1] Past Medical History: Diagnosis Date Arthritis Cancer (CMS/HCC) (HCC) Disease of thyroid gland [2] Past Surgical History: Procedure Laterality Date BACK SURGERY CHOLECYSTECTOMY COLON SURGERY THYMECTOMY stated per patient, for cancer removal [3] Allergies Allergen Reactions Azithromycin Diarrhea Severe diarrhea Seasonal Other Stuffy/runny nose [4] No current facility-administered medications for this encounter. Current Outpatient Medications: amitriptyline (Elavil) 75 MG tablet, Take 75 mg by mouth Nightly. AVS from 03/03 from [facility] with Dr. Benitez states: discontinue the elavil for now - we will taper it down. Take 50 mg 4-5 days, then take 25 mg for 4-5 days then stop. (Patient not taking: Reported on 04/07/2024), Disp: , Rfl: Apoaequorin (Prevagen) 10 MG capsule, Take 10 mg by mouth daily. (Patient not taking: Reported on 04/07/2024), Disp: , Rfl: aspirin 81 MG EC tablet, Take 81 mg by mouth in the morning., Disp: , Rfl: biotin 5000 MCG capsule, Take 5,000 mcg by mouth daily. OTC per patient, Disp: , Rfl: Calcium Carb-Cholecalciferol 600-10 MG-MCG tablet, Take 1 tablet by mouth in the morning and 1 tablet in the evening., Disp: , Rfl: fluconazole (Diflucan) 200 MG tablet, Take 200 mg by mouth daily., Disp: , Rfl: fludrocortisone (Florinef) 0.1 MG tablet, Take 1 tablet (0.1 mg) by mouth 2 times daily., Disp: 60 tablet, Rfl: 0 levothyroxine (Synthroid, Levoxyl) 75 MCG tablet, Take 75 mcg by mouth every morning (before breakfast)., Disp: , Rfl: mycophenolate (Cellcept) 500 MG tablet, Take 1,000 mg by mouth 2 times daily. 1000 mg in morning and 500 at night per patient, Disp: , Rfl: ondansetron (Zofran) 4 MG tablet, Take 4 mg by mouth every 8 hours as needed for nausea or vomiting. New prescription, unsure of times or dose (Patient not taking: Reported on 04/07/2024), Disp: , Rfl: [5] No current facility-administered medications for this encounter. Current Outpatient Medications Medication Sig Dispense Refill amitriptyline (Elavil) 75 MG tablet Take 75 mg by mouth Nightly. AVS from 03/03 from [facility] with Dr. Benitez states: discontinue the elavil for now - we will taper it down. Take 50 mg 4-5 days, then take 25 mg for 4-5 days then stop. (Patient not taking: Reported on 04/07/2024) Apoaequorin (Prevagen) 10 MG capsule Take 10 mg by mouth daily. (Patient not taking: Reported on 04/07/2024) aspirin 81 MG EC tablet Take 81 mg by mouth in the morning. biotin 5000 MCG capsule Take 5,000 mcg by mouth daily. OTC per patient Calcium Carb-Cholecalciferol 600-10 MG-MCG tablet Take 1 tablet by mouth in the morning and 1 tablet in the evening. fluconazole (Diflucan) 200 MG tablet Take 200 mg by mouth daily. fludrocortisone (Florinef) 0.1 MG tablet Take 1 tablet (0.1 mg) by mouth 2 times daily. 60 tablet 0 levothyroxine (Synthroid, Levoxyl) 75 MCG tablet Take 75 mcg by mouth every morning (before breakfast). mycophenolate (Cellcept) 500 MG tablet Take 1,000 mg by mouth 2 times daily. 1000 mg in morning and 500 at night per patient ondansetron (Zofran) 4 MG tablet Take 4 mg by mouth every 8 hours as needed for nausea or vomiting. New prescription, unsure of times or dose (Patient not taking: Reported on 04/07/2024) [6] Patient Active Problem List Diagnosis Esophageal dysmotility Hyponatremia Chronic interstitial cystitis ILD (interstitial lung disease) ([facility]) Lung nodules NSIP (nonspecific interstitial pneumonitis) ([facility]) Stage 3a chronic kidney disease (HCC) Post-menopausal bleeding Acquired hypothyroidism Hydronephrosis with urinary obstruction due to ureteral calculus Vaginal bleeding Cosigned by Jennie Chang DO at 01/22/2025 6:59 AM EDT Associated attestation - Jennie Chang DO - 01/22/2025 6:59 AM EDT Hospital Care (Present): I was present with the resident during the history and exam. I discussed the case with the resident and agree with the findings and plan as documented in the resident's note. Eren Merchant is a 64 y.o. presented to [facility] for heavy vaginal bleeding. At [facility] ED, found to be hypotensive and tachycardic. Hgb dropped from baseline ~12 to 8. Patient received 1 unit pRBCs, 2nd unit started but had to be stopped due to fever. TVUS showed fluid filled endometrium with endometrial thickness of 12.[address] A/P with thickened bladder wall and heterogenous debris. Patient transferred to [facility] ED for AUTOMOTIVE SERVICE PROFESSIONAL evaluation. In ED here, patient slightly tachycardic to 100's. Hgb stable at 8.5. Pelvic exam showed atrophic vagina and stenotic cervix. No blood in vaginal vault. Plan to admit for observation to REFERENCE TEST CLERK service given acute blood loss anemia requiring transfusion. Start Megace 20 mg BID. Will consult urology given abnormal bladder findings. Discussed with patient need for uterine sampling, likely to be done outpatient with primary AUTOMOTIVE SERVICE PROFESSIONAL at [facility]. documented in this encounter [facility] 01-22-2025 Emergency department Note EMERGENCY DEPARTMENT ENCOUNTER Pt Name: Eren Merchant Birthdate 1960 Date of evaluation: 01/21/2025 ED Provider: Soco Avila MD CHIEF COMPLAINT 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 Patient presents with Vaginal Bleeding Transfer from [facility] for a REFERENCE TEST CLERK/ONC consult. Started to bleed heavily Wednesday morning going thru approx 70 maxi pads. +clots. Received 1 unit of PRBCs @ [facility] but didn't receive full second unit d/t increased temperature. Per EMS she became hypotensive for 90s/50s and was given a 500cc bolus. Pt has no other complaints, just the bleeding. HISTORY OF PRESENT ILLNESS (Location/Symptom, Timing/Onset, Context/Setting, Quality, Duration, Modifying Factors, Severity) Note limiting factors. I wore appropriate PPE for the entirety of this encounter. HPI Eren Merchant is a 64 y.o. who presents to the emergency department for vaginal bleeding. Patient was transferred from [facility] for AUTOMOTIVE SERVICE PROFESSIONAL consult. Started having heavy bleeding since Wednesday morning has gone through 3 or 4 packs of maxi pads. Patient received 1 unit of packed red blood cell booster but when they started the second units when patient had increased temperature and they had to stop the transfusion. And initially patient was tachycardic and hypotensive on arrival to the ED. On route patient was hypotensive and was given 5 to cc bolus. Patient was given Tylenol for her elevated temperature. Denying any pain anywhere. States that this is never occurred before. Denies feel lightheaded or dizzy. Patient reports that the bleeding seems to slow down a bit but she still having vaginal bleeding. Nursing Notes were reviewed. Limitations to history: None Outside historians: None REVIEW OF SYSTEMS Review of Systems Pertinent positives and negatives as per HPI. PAST MEDICAL HISTORY Medical History[1] SURGICAL HISTORY Surgical History[2] CURRENT MEDICATIONS Previous Medications AMITRIPTYLINE (ELAVIL) 75 MG TABLET Take 75 mg by mouth Nightly. AVS from 03/03 from [facility] with Dr. Benitez states: discontinue the elavil for now - we will taper it down. Take 50 mg 4-5 days, then take 25 mg for 4-5 days then stop. APOAEQUORIN (PREVAGEN) 10 MG CAPSULE Take 10 mg by mouth daily. ASPIRIN 81 MG EC TABLET Take 81 mg by mouth in the morning. BIOTIN 5000 MCG CAPSULE Take 5,000 mcg by mouth daily. OTC per patient CALCIUM CARB-CHOLECALCIFEROL 600-10 MG-MCG TABLET Take 1 tablet by mouth in the morning and 1 tablet in the evening. FLUCONAZOLE (DIFLUCAN) 200 MG TABLET Take 200 mg by mouth daily. FLUDROCORTISONE (FLORINEF) 0.1 MG TABLET Take 1 tablet (0.1 mg) by mouth 2 times daily. LEVOTHYROXINE (SYNTHROID, LEVOXYL) 75 MCG TABLET Take 75 mcg by mouth every morning (before breakfast). MYCOPHENOLATE (CELLCEPT) 500 MG TABLET Take 1,000 mg by mouth 2 times daily. 1000 mg in morning and 500 at night per patient ONDANSETRON (ZOFRAN) 4 MG TABLET Take 4 mg by mouth every 8 hours as needed for nausea or vomiting. New prescription, unsure of times or dose ALLERGIES Azithromycin and Seasonal FAMILY HISTORY Family History[3] SOCIAL HISTORY Social History[4] SCREENINGS PHYSICAL EXAM ED Triage Vitals [01/22/25 0352] Temp Heart Rate Resp BP 37.7 C (99.9 F) 102 18 103/57 SpO2 Temp Source Heart Rate Source Patient Position 94 % Oral -- -- BP Location FiO2 (%) -- -- Physical Exam Constitutional: General: She is not in acute distress. Appearance: She is not ill-appearing, toxic-appearing or diaphoretic. HENT: Head: Normocephalic and atraumatic. Right Ear: External ear normal. Left Ear: External ear normal. Nose: Nose normal. Mouth/Throat: Mouth: Mucous membranes are moist. Pharynx: Oropharynx is clear. Eyes: Extraocular Movements: Extraocular movements intact. Conjunctiva/sclera: Conjunctivae normal. Cardiovascular: Rate and Rhythm: Regular rhythm. Tachycardia present. Pulses: Normal pulses. Pulmonary: Effort: Pulmonary effort is normal. No respiratory distress. Breath sounds: No stridor. No wheezing, rhonchi or rales. Chest: Chest wall: No tenderness. Abdominal: General: Abdomen is flat. There is no distension. Tenderness: There is no abdominal tenderness. There is no guarding or rebound. Musculoskeletal: General: Normal range of motion. Cervical back: Normal range of motion. Right lower leg: No edema. Skin: General: Skin is warm and dry. Neurological: General: No focal deficit present. Mental Status: She is alert and oriented to person, place, and time. Mental status is at baseline. DIAGNOSTIC RESULTS RADIOLOGY (Per Emergency Physician): Interpretation per the Radiologist below, if available at the time of this note: No orders to display LABS: Labs Reviewed CBC WITH AUTO DIFFERENTIAL - Abnormal Result Value Auto WBC 17.0 (*) RBC 3.15 (*) Hemoglobin 8.5 (*) Hematocrit 26.3 (*) MCV 83.5 MCH 27.0 MCHC 32.3 RDW 13.8 Platelets 221 MPV 10.0 BASIC METABOLIC PANEL - Abnormal SODIUM 135 (*) POTASSIUM 3.6 CHLORIDE 106 CARBON DIOXIDE 21 (*) UREA NITROGEN 28 (*) CREATININE 1.83 (*) GLUCOSE 119 (*) CALCIUM 8.4 (*) ANION GAP 8 eGFR 30.1 (*) PROTHROMBIN TIME - Abnormal PROTHROMBIN TIME 12.4 (*) INR 1.2 (*) MANUAL DIFFERENTIAL (CELLAVISION) - Abnormal RBC Morphology abnormal Poikilocytes Slight (*) Ovalocytes Slight (*) Neutrophils % 89 (*) Bands % 3 (*) Lymphocytes % 2 (*) Monocytes % 6 Absolute Neutrophil Count 15.6 (*) Bands Absolute 0.5 (*) Lymphocytes Absolute 0.3 (*) Monocytes Absolute 1.0 (*) Neutrophils Manual 88 Lymphocytes Manual 2 Monocytes Manual 6 Eosinophils Manual Basophils Manual Bands Manual 3 Metamyelocytes Manual Myelocytes Manual Promyelocytes Manual Blasts Manual Atypical Lymphocytes Manual Unclassified Cells, Manual BLOOD TYPE AND SCREEN GEL ABO Grouping O Antibody Screen NEG Rh Type POS All other labs were within normal range or not returned as of this dictation. EMERGENCY DEPARTMENT COURSE and DIFFERENTIAL DIAGNOSIS/MDM: Vitals: Vitals: 01/22/25 0352 01/22/25621 BP: 103/57 93/57 Pulse: 102 99 Resp: 18 18 Temp: 37.7 C (99.9 F) TempSrc: Oral SpO2: 94% 99% Weight: 76.7 kg (169 lb) Height: 1.664 m (5' 5.5) The patient presented with a chief complaint of vaginal bleeding. The differential diagnosis associated with this patient's presentation includes malignancy, mass, fibroma, leiomyoma, anemia, hypovolemia. Our workup consisted of ordering/reviewing lab workup. Paged AUTOMOTIVE SERVICE PROFESSIONAL upon patient's arrival to emergency department. AUTOMOTIVE SERVICE PROFESSIONAL came and evaluated patient and will be admitting to monitor her bleeding. ED Course as of 01/22/25628Jan 22, 2025 0430 Talked to OB and they will come down to evaluate [TC] 0552 Creatinine(!): 1.83 baseline [TC] 0552 HEMOGLOBIN(!): 8.5 Stable from [facility] [TC] ED Course User Index [TC] Soco Avila MD Diagnoses as of 01/22/25628 Vaginal bleeding ED Medications managed: Medications - No data to display PROCEDURES: Unless otherwise noted below, none Procedures FINAL IMPRESSION 1. Vaginal bleeding DISPOSITION Admit 01/22/2025 04:22:07 AM PATIENT REFERRED TO: No follow-up provider specified. DISCHARGE MEDICATIONS: New Prescriptions No medications on file (Comment: Please note this report has been produced using speech recognition software and may contain errors related to that system including errors in grammar, punctuation, and spelling, as well as words and phrases that may be inappropriate. If there are any questions or concerns please feel free to contact the dictating provider for clarification.) Soco Avila MD (electronically signed) Emergency Medicine Provider [1] Past Medical History: Diagnosis Date Arthritis Cancer (CMS/HCC) (HCC) Disease of thyroid gland [2] Past Surgical History: Procedure Laterality Date BACK SURGERY CHOLECYSTECTOMY COLON SURGERY THYMECTOMY stated per patient, for cancer removal [3] No family history on file. [4] Social History Socioeconomic History Marital status: Tobacco Use Smoking status: Never Smokeless tobacco: Never Vaping Use Vaping status: Never Used Substance and Sexual Activity Alcohol use: Never Drug use: Never Sexual activity: Not Currently Social Drivers of Health Financial Resource Strain: Low Risk (12/11/2024) Received from [facility] Overall Financial Resource Strain (CARDIA) Difficulty of Paying Living Expenses: Not hard at all Food Insecurity: No Food Insecurity (12/11/2024) Received from [facility] Hunger Vital Sign Worried About Running Out of Food in the Last Year: Never true Ran Out of Food in the Last Year: Never true Transportation Needs: No Transportation Needs (12/11/2024) Received from [facility] PRAPARE - Transportation Lack of Transportation (Medical): No Lack of Transportation (Non-Medical): No Physical Activity: Insufficiently Active (12/11/2024) Received from [facility] Exercise Vital Sign Days of Exercise per Week: 3 days Minutes of Exercise per Session: 30 min Stress: No Stress Concern Present (12/11/2024) Received from [facility] [employer] - Occupational Stress Questionnaire Feeling of Stress : Not at all Social Connections: Moderately Isolated (12/11/2024) Received from [facility] Social Connection and Isolation Panel [NHANES] Frequency of Communication with Friends and Family: More than three times a week Frequency of Social Gatherings with Friends and Family: Once a week Attends Anglican Services: 1 to 4 times per year Active Member of Clubs or Organizations: No Attends Club or Organization Meetings: Never Marital Status: Intimate Partner Violence: Not At Risk (03/04/2024) Humiliation, Afraid, Rape, and Kick questionnaire Fear of Current or Ex-Partner: No Emotionally Abused: No Physically Abused: No Sexually Abused: No Soco Avila MD Resident 01/22/25 0629 Cosigned by Ina Del Toro DO at 01/24/2025 7:04 AM EDT documented in this encounter [facility] 01-22-2025 Physician Emergency department Note EMERGENCY DEPARTMENT ENCOUNTER Pt Name: Eren Merchant Birthdate 1960 Date of evaluation: 01/21/2025 ED Provider: Soco Avila MD CHIEF COMPLAINT 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 Patient presents with Vaginal Bleeding Transfer from [facility] for a REFERENCE TEST CLERK/ONC consult. Started to bleed heavily Wednesday morning going thru approx 70 maxi pads. +clots. Received 1 unit of PRBCs @ [facility] but didn't receive full second unit d/t increased temperature. Per EMS she became hypotensive for 90s/50s and was given a 500cc bolus. Pt has no other complaints, just the bleeding. HISTORY OF PRESENT ILLNESS (Location/Symptom, Timing/Onset, Context/Setting, Quality, Duration, Modifying Factors, Severity) Note limiting factors. I wore appropriate PPE for the entirety of this encounter. HPI Eren Merchant is a 64 y.o. who presents to the emergency department for vaginal bleeding. Patient was transferred from [facility] for AUTOMOTIVE SERVICE PROFESSIONAL consult. Started having heavy bleeding since Wednesday morning has gone through 3 or 4 packs of maxi pads. Patient received 1 unit of packed red blood cell booster but when they started the second units when patient had increased temperature and they had to stop the transfusion. And initially patient was tachycardic and hypotensive on arrival to the ED. On route patient was hypotensive and was given 5 to cc bolus. Patient was given Tylenol for her elevated temperature. Denying any pain anywhere. States that this is never occurred before. Denies feel lightheaded or dizzy. Patient reports that the bleeding seems to slow down a bit but she still having vaginal bleeding. Nursing Notes were reviewed. Limitations to history: None Outside historians: None REVIEW OF SYSTEMS Review of Systems Pertinent positives and negatives as per HPI. PAST MEDICAL HISTORY Medical History[1] SURGICAL HISTORY Surgical History[2] CURRENT MEDICATIONS Previous Medications AMITRIPTYLINE (ELAVIL) 75 MG TABLET Take 75 mg by mouth Nightly. AVS from 03/03 [address] [facility] [address] Benitez states: discontinue the elavil for now - we will taper it down. Take 50 mg 4-5 days, then take 25 mg for 4-5 days then stop. APOAEQUORIN (PREVAGEN) 10 MG CAPSULE Take 10 mg by mouth daily. ASPIRIN 81 MG EC TABLET Take 81 mg by mouth in the morning. BIOTIN 5000 MCG CAPSULE Take 5,000 mcg by mouth daily. OTC per patient CALCIUM CARB-CHOLECALCIFEROL 600-10 MG-MCG TABLET Take 1 tablet by mouth in the morning and 1 tablet in the evening. FLUCONAZOLE (DIFLUCAN) 200 MG TABLET Take 200 mg by mouth daily. FLUDROCORTISONE (FLORINEF) 0.1 MG TABLET Take 1 tablet (0.1 mg) by mouth 2 times daily. LEVOTHYROXINE (SYNTHROID, LEVOXYL) 75 MCG TABLET Take 75 mcg by mouth every morning (before breakfast). MYCOPHENOLATE (CELLCEPT) 500 MG TABLET Take 1,000 mg by mouth 2 times daily. 1000 mg in morning and 500 at night per patient ONDANSETRON (ZOFRAN) 4 MG TABLET Take 4 mg by mouth every 8 hours as needed for nausea or vomiting. New prescription, unsure of times or dose ALLERGIES Azithromycin and Seasonal FAMILY HISTORY Family History[3] SOCIAL HISTORY Social History[4] SCREENINGS PHYSICAL EXAM ED Triage Vitals [01/22/25 0352] Temp Heart Rate Resp BP 37.7 C (99.9 F) 102 18 103/57 SpO2 Temp Source Heart Rate Source Patient Position 94 % Oral -- -- BP Location FiO2 (%) -- -- Physical Exam Constitutional: General: She is not in acute distress. Appearance: She is not ill-appearing, toxic-appearing or diaphoretic. HENT: Head: Normocephalic and atraumatic. Right Ear: External ear normal. Left Ear: External ear normal. Nose: Nose normal. Mouth/Throat: Mouth: Mucous membranes are moist. Pharynx: Oropharynx is clear. Eyes: Extraocular Movements: Extraocular movements intact. Conjunctiva/sclera: Conjunctivae normal. Cardiovascular: Rate and Rhythm: Regular rhythm. Tachycardia present. Pulses: Normal pulses. Pulmonary: Effort: Pulmonary effort is normal. No respiratory distress. Breath sounds: No stridor. No wheezing, rhonchi or rales. Chest: Chest wall: No tenderness. Abdominal: General: Abdomen is flat. There is no distension. Tenderness: There is no abdominal tenderness. There is no guarding or rebound. Musculoskeletal: General: Normal range of motion. Cervical back: Normal range of motion. Right lower leg: No edema. Skin: General: Skin is warm and dry. Neurological: General: No focal deficit present. Mental Status: She is alert and oriented to person, place, and time. Mental status is at baseline. DIAGNOSTIC RESULTS RADIOLOGY (Per Emergency Physician): Interpretation per the Radiologist below, if available at the time of this note: No orders to display LABS: Labs Reviewed CBC WITH AUTO DIFFERENTIAL - Abnormal Result Value Auto WBC 17.0 (*) RBC 3.15 (*) Hemoglobin 8.5 (*) Hematocrit 26.3 (*) MCV 83.5 MCH 27.0 MCHC 32.3 RDW 13.8 Platelets 221 MPV 10.0 BASIC METABOLIC PANEL - Abnormal SODIUM 135 (*) POTASSIUM 3.6 CHLORIDE 106 CARBON DIOXIDE 21 (*) UREA NITROGEN 28 (*) CREATININE 1.83 (*) GLUCOSE 119 (*) CALCIUM 8.4 (*) ANION GAP 8 eGFR 30.1 (*) PROTHROMBIN TIME - Abnormal PROTHROMBIN TIME 12.4 (*) INR 1.2 (*) MANUAL DIFFERENTIAL (CELLAVISION) - Abnormal RBC Morphology abnormal Poikilocytes Slight (*) Ovalocytes Slight (*) Neutrophils % 89 (*) Bands % 3 (*) Lymphocytes % 2 (*) Monocytes % 6 Absolute Neutrophil Count 15.6 (*) Bands Absolute 0.5 (*) Lymphocytes Absolute 0.3 (*) Monocytes Absolute 1.0 (*) Neutrophils Manual 88 Lymphocytes Manual 2 Monocytes Manual 6 Eosinophils Manual Basophils Manual Bands Manual 3 Metamyelocytes Manual Myelocytes Manual Promyelocytes Manual Blasts Manual Atypical Lymphocytes Manual Unclassified Cells, Manual BLOOD TYPE AND SCREEN GEL ABO Grouping O Antibody Screen NEG Rh Type POS All other labs were within normal range or not returned as of this dictation. EMERGENCY DEPARTMENT COURSE and DIFFERENTIAL DIAGNOSIS/MDM: Vitals: Vitals: 01/22/25 0352 01/22/25 0622 BP: 103/57 93/57 Pulse: 102 99 Resp: 18 18 Temp: 37.7 C (99.9 F) TempSrc: Oral SpO2: 94% 99% Weight: 76.7 kg (169 lb) Height: 1.664 m (5' 5.5) The patient presented with a chief complaint of vaginal bleeding. The differential diagnosis associated with this patient's presentation includes malignancy, mass, fibroma, leiomyoma, anemia, hypovolemia. Our workup consisted of ordering/reviewing lab workup. Paged AUTOMOTIVE SERVICE PROFESSIONAL upon patient's arrival to emergency department. AUTOMOTIVE SERVICE PROFESSIONAL came and evaluated patient and will be admitting to monitor her bleeding. ED Course as of 01/22/25 06WedJan 22, 2025429 Talked to OB and they will come down to evaluate [TC] 0552 Creatinine(!): 1.83 baseline [TC] 0552 HEMOGLOBIN(!): 8.5 Stable from [facility] [TC] ED Course User Index [TC] Soco Avila MD Diagnoses as of 01/22/25 0629 Vaginal bleeding ED Medications managed: Medications - No data to display PROCEDURES: Unless otherwise noted below, none Procedures FINAL IMPRESSION 1. Vaginal bleeding DISPOSITION Admit 01/22/2025 04:22:07 AM PATIENT REFERRED TO: No follow-up provider specified. DISCHARGE MEDICATIONS: New Prescriptions No medications on file (Comment: Please note this report has been produced using speech recognition software and may contain errors related to that system including errors in grammar, punctuation, and spelling, as well as words and phrases that may be inappropriate. If there are any questions or concerns please feel free to contact the dictating provider for clarification.) Soco Avila MD (electronically signed) Emergency Medicine Provider [1] Past Medical History: Diagnosis Date Arthritis Cancer (CMS/HCC) (HCC) Disease of thyroid gland [2] Past Surgical History: Procedure Laterality Date BACK SURGERY CHOLECYSTECTOMY COLON SURGERY THYMECTOMY stated per patient, for cancer removal [3] No family history on file. [4] Social History Socioeconomic History Marital status: Tobacco Use Smoking status: Never Smokeless tobacco: Never Vaping Use Vaping status: Never Used Substance and Sexual Activity Alcohol use: Never Drug use: Never Sexual activity: Not Currently Social Drivers of Health Financial Resource Strain: Low Risk (12/11/2024) Received from [facility] Overall Financial Resource Strain (CARDIA) Difficulty of Paying Living Expenses: Not hard at all Food Insecurity: No Food Insecurity (12/11/2024) Received from [facility] Hunger Vital Sign Worried About Running Out of Food in the Last Year: Never true Ran Out of Food in the Last Year: Never true Transportation Needs: No Transportation Needs (12/11/2024) Received from [facility] PRAPARE - Transportation Lack of Transportation (Medical): No Lack of Transportation (Non-Medical): No Physical Activity: Insufficiently Active (12/11/2024) Received from [facility] Exercise Vital Sign Days of Exercise per Week: 3 days Minutes of Exercise per Session: 30 min Stress: No Stress Concern Present (12/11/2024) Received from [facility] [employer] - Occupational Stress Questionnaire Feeling of Stress : Not at all Social Connections: Moderately Isolated (12/11/2024) Received from [facility] Social Connection and Isolation Panel [NHANES] Frequency of Communication with Friends and Family: More than three times a week Frequency of Social Gatherings with Friends and Family: Once a week Attends Anglican Services: 1 to 4 times per year Active Member of Clubs or Organizations: No Attends Club or Organization Meetings: Never Marital Status: Intimate Partner Violence: Not At Risk (03/04/2024) Humiliation, Afraid, Rape, and Kick questionnaire Fear of Current or Ex-Partner: No Emotionally Abused: No Physically Abused: No Sexually Abused: No Soco Avila MD Resident 01/22/25628 Cosigned by Ina Del Toro DO at 01/24/2025 7:04 AM EDT [employer] Phone: 01-22-2025 Discharge summary Note Date/Time January 21, 2025 11:27pm [facility] Medical Records Department [address] [place] [address] Emergency Department Summary 01/21/25 MR#: [id number] Acct: [id number] Name: EREN MERCHANT Rep #:[id number] : 1960 64 From: Michelle Vaughn PCP: Dr. Gonzalo Day MD Status :REG ER Location: ED HPI HPI - Female History of Present Illness 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: Vag Bleeding PFSH PFSH Medical History Kidney stones Thyroid disease [...] QDAY #30 ta bs 11/21/24 12/21/24 Rx multivitamin (Daily Multi-Vitamin 1 tab PO DAILY 12/1912/21/24 History tablet) fludrocortisone 0.1 mg tablet 0.3 mg PO DAILY 12/29/24 Unknown History Allergy/AdvReac Type Severity Reaction Status Date / Time cetirizine (From [facility]) Allergy Intermediate Rash Verified 01/21/25 19:26 erythromycin base AdvReac Intermediate Diarrhea Verified 01/21/25 19:26 azithromycin AdvReac Mild Diarrhea Verified 01/21/25 19:26 Family History Mother Thyroid disorder Hypertension Father [...] current alcohol intake frequency: holidays/special occasions only EXAM Physical Exam Const Vital Signs: 01/21/25 19:26 01/21/25 21:20 01/21/25 21:44 Temperature 97.7 F L 99.8 F H Temperature Source Temporal Oral Pulse Rate 114 H 104 H 99 Respiratory Rate 15 18 18 Blood Pressure 92/62 103/55 L 98/68 Blood Pressure Mean 72 71 78 Blood Pressure Source Monitor Blood Pressure Position Semi-Fowlers Blood Pressure Location Left Arm Pulse Ox 100 92 97 Oxygen Delivery Method Room Air Room Air Room Air 01/21/25 21:59 Temperature 99.2 F H Temperature Source Oral Pulse Rate 100 Respiratory Rate 20 H Blood Pressure 98/63 Blood Pressure Mean 74 Blood Pressure Source Monitor Blood Pressure Position Supine Blood Pressure Location Left Arm Pulse Ox 100 Oxygen Delivery Method Room Air MDM MDM MDM Narrative Medical decision making narrative: HISTORY OF PRESENT ILLNESS: Chief complaint: Vaginal bleed 64-year-old female history of nephrolithiasis, Parkinson's disease, hypothyroidism, GERD, DVT, emphysema, overactive bladder, leiomyoma of the uterus presents with vaginal bleeding. Per triage note patient had bright red vaginal bleeding with large clots that started yesterday around 130. Notes she is bleeding through to heavy flow packages. Endorses increased fatigue and shaking. Patient does not take blood thinners. REVIEW OF SYSTEMS: Pertinent positives: Vaginal bleeding, lightheadedness, fatigue, near syncope Pertinent negatives: Chest pain PHYSICAL EXAM: Nursing triage notes reviewed, Vital signs reviewed Constitutional: please see mdm HENT: MMM Eyes: Pupils equal round and reactive to light, Extraocular muscles intact Neck: No stridor, no JVD, full neck ROM Lungs: Clear to auscultation, No wheezing or rales. No increased work of breathing, no conversational dyspnea, no accessory muscle use, no nasal flaring. No respiratory distress noted Heart: Regular rate and rhythm, No murmurs, No rubs and No gallops, 2+ distal pulses (radial, femoral, posterior tibial) in all extremities Abdomen: Soft, there is no tenderness, rigidity, rebound or guarding, no obviousperitoneal signs, no palpable pulsatile abdominal masses, no auscultated abdominal bruit : No CVAT, pelvic exam performed with hat body inspector in room showed no obvious abnormalities. No lacerations. Cervical os was closed. No active bleeding. Extremities: No edema Neuro: No new focal neurological deficits, cranial nerves II through XII intact,5/5 strength in all present extremities. Intact sensation to light touch in all present extremities, 2+ reflexes bilateral patella tendons. Skin: No rash or lesions noted MEDICAL DECISION MAKING: 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: please see HPI External records reviewed: Reviewed prior imaging studies: Reviewed CT scan headand pelvis from 03/09. No uterine masses were noted during this evaluation Factors affecting care: As per HPI Social determinants of health: none History obtained from others: family Consults: AUTOMOTIVE SERVICE PROFESSIONAL (Dr. Juarez Bryant) discussed giving TXA the patient has heavy bleeding. Discussed giving progesterone if heavy bleeding. Discussed transferring to definitive Chief Gauger-oncology care. AUTOMOTIVE SERVICE PROFESSIONAL [facility] (Dr. Chang), ER (Dr. Muhammad) MDM Narrative: Patient was initially tachycardic heart rate of 114, soft blood pressure initially at 92/62, afebrile. Exam without abdominal TTP. Pelvic exam essentially unremarkable with no active bleeding. Cervical os closed. I considered the following differential diagnosis: Uterine leiomyoma, anemia, pelvic mass I obtained broad lab and imaging work to further determine if the patient was suffering from a life-threatening etiology. Initially resuscitated patient with 1 L normal saline ALL IMAGES (IF OBTAINED) HAVE BEEN PERSONALLY REVIEWED AND INTERPRETED BY MYSELF. CBC with leukocytosis suggestive of systemic examination, noted severe anemia with hemoglobin 8.5 prior 11.6, no thrombocytopenia BMP with hyponatremia, baseline CKD, no evidence hepatobiliary obstruction CT scan of the pelvis shows the following: Clinical correlation for constipation. Gastrointestinal findings discussed above. Bilateral worsening moderate to severe hydronephrosis. Thick-walled abnormal appearance of the urinary bladder. Genitourinary findings, differential and recommendations discussed above. Transvaginal ultrasound shows Fluid-filled uterine cavity. This is atypical forthe patient's age. The endometrium itself is not clearly identified or measured. After normal saline patient's blood pressure improved. Given drop in hemoglobinand concern for ongoing bleeding I did order 2 units of packed red blood cells. These were transfused. Discussed the case with AUTOMOTIVE SERVICE PROFESSIONAL here as well as [facility]. Discussed with [facility] OB who noted patient was appropriate ED to ED transfer. Discussed with ED physician Dr. Muhammad who agreed to accept the patient in transfer. Upon reassessment patient blood pressure improved to 122/101. The patient and/or family, caregivers express understanding. The patient and/orfamily, caregivers agrees with the plan. Shared decision making: I will have a discussion with the patient and or visitors regarding risk/benefits of further testing or admission. They will be made aware of of the risk/benefits inherent in this decision they will be given the opportunity to voice understanding. Total critical care time today provided was at least 60 minutes. This excludes separately billable procedures. Critical care time (if documented) is secondary to the patient having high probability of clinically significant/life threatening deterioration in the patient's condition which required my urgent intervention. Impression: 1. Acute blood loss anemia 2. Vaginal bleeding 3. Hypotension Dispo: Transfer to [facility] emergency department This note was generated with [employer] dictation software. It may contain incorrectwords, spelling, and punctuation that were not noted in review of the chart prior to signing. Lab Data Labs: Laboratory Results - last 24 hr 01/21/25 20:00 WBC 22.8 H RBC 3.24 L Hgb 8.5 L Hct 26.9 L MCV 83.0 MCH 26.2 L MCHC 31.6 L RDW Std Deviation 42.1 RDW Coeff of Vanessa 13.8 Plt Count 281 MPV 10.1 Immature Gran % (Auto) 0.700 Neut % (Auto) 86.6 H Lymph % (Auto) 3.3 L Clinton % (Auto) 9.3 Eos % (Auto) 0.0 Baso % (Auto) 0.1 Absolute Neuts (auto) 19.8 H Absolute Lymphs (auto) 0.75 L Nucleated RBC % 0 Platelet Estimate ADEQUATE RBC Morphology NORM C+C Sodium 132 L Potassium 3.5 Chloride 98 Carbon Dioxide 22.4 Anion Gap 12 BUN 32 H Creatinine 2.06 H Estim Creat Clear Calc 27.29 L Est GFR (MDRD) Non-Af 26 L BUN/Creatinine Ratio 15.5 Glucose 157 H Calcium 9.3 Total Bilirubin 0.49 AST 32 ALT < 5 Alkaline Phosphatase 102 Total Protein 6.2 Albumin 3.3 L Globulin 2.8 Albumin/Globulin Ratio 1.2 Blood Type O POSITIVE Antibody Screen NEGATIVE Crossmatch See Detail Radiography Diagnostic Testing: Clinical Impression(s) from Imaging Studies Abdomen/Pelvis CT 01/21/25 21:03 IMPRESSION: Clinical correlation for constipation. Gastrointestinal findings discussed above. - Bilateral worsening moderate to severe hydronephrosis. Thick-walled abnormal appearance of the urinary bladder. Genitourinary findings, differential and recommendations discussed above. - Other findings discussed above in detail. Reading Location: [facility] Discharge Plan Triage 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: Vag Bleeding ED Provider: Michelle Mosher Dx/Rx/DC Orders Prescriptions: No Action ondansetron 4 mg tablet,disintegrating 4 mg PO Q8H PRN (Reason: nausea and vomiting) levothyroxine 100 mcg capsule 100 mcg PO QDAY carbidopa-levodopa [Sinemet] 25-100 mg tablet 1 tab PO TID pantoprazole 20 mg tablet,delayed release (DR/EC) 20 mg PO QDAY Qty: 30 2RF carbidopa 25 mg tablet 25 mg PO TID aspirin 81 MG tablet,chewable 81 mg PO DAILY@0800 cholecalciferol (vitamin D3) [Vitamin D3] 1,000 UNIT tablet 1,000 unit PO BID mycophenolate mofetil [CellCept] 500 mg tablet 500 mg PO BID Probiotic Acidophilus 250 million cell capsule 500 mmu cells PO DAILY amitriptyline 50 mg tablet 100 mg PO QHS multivitamin [Daily Multi-Vitamin] Tablet 1 tab PO DAILY fludrocortisone 0.1 mg tablet 0.3 mg PO DAILY Trulance 3 mg tablet 3 mg PO QDAY Qty: 30 1RF Primary Care Provider: Gonzalo Day Referrals: Gonzalo Day MD [Primary Care Provider] - Print Language: Colombian Disposition Disposition: Acute Care Hospital Discharge Location: [facility] What to do if you have Problems For any increased pain, shortness of breath, bleeding, nausea or vomiting, chestpain, or any unexpected problems, contact your Primary Care Provider. Call [facility] ([phone]) or report to the closest Emergency Room. Call 911 if necessary. 01/21/25 1334 <Electronically signed by Michelle Mosher DO> Cosigner Signature (if applicable): CC: Dr. Gonzalo Day MD ~ Signed [facility] Work Phone: [phone] Discharge summary [facility] Medical Records Department [address] [place] [address] Emergency Department Summary 01/21/25 MR#: [id number] Acct: [id number] Name: EREN MERCHANT Rep #:[id number] : 1960 64 From: Michelle Vaughn PCP: Dr. Gonzalo Day MD Status :REG ER Location: ED HPI HPI - Female History of Present Illness 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: Vag Bleeding PFSH PFSH Medical History Kidney stones Thyroid disease [...] QDAY #30 ta bs 11/21/24 12/21/24 Rx multivitamin (Daily Multi-Vitamin 1 tab PO DAILY 12/1912/21/24 History tablet) fludrocortisone 0.1 mg tablet 0.3 mg PO DAILY 12/29/24 Unknown History Allergy/AdvReac Type Severity Reaction Status Date / Time cetirizine (From [facility]) Allergy Intermediate Rash Verified 01/21/25 19:26 erythromycin base AdvReac Intermediate Diarrhea Verified 01/21/25 19:26 azithromycin AdvReac Mild Diarrhea Verified 01/21/25 19:26 Family History Mother Thyroid disorder Hypertension Father [...] current alcohol intake frequency: holidays/special occasions only EXAM Physical Exam Const Vital Signs: 01/21/25 19:26 01/21/25 21:20 01/21/25 21:44 Temperature 97.7 F L 99.8 F H Temperature Source Temporal Oral Pulse Rate 114 H 104 H 99 Respiratory Rate 15 18 18 Blood Pressure 92/62 103/55 L 98/68 Blood Pressure Mean 72 71 78 Blood Pressure Source Monitor Blood Pressure Position Semi-Fowlers Blood Pressure Location Left Arm Pulse Ox 100 92 97 Oxygen Delivery Method Room Air Room Air Room Air 01/21/25 21:59 Temperature 99.2 F H Temperature Source Oral Pulse Rate 100 Respiratory Rate 20 H Blood Pressure 98/63 Blood Pressure Mean 74 Blood Pressure Source Monitor Blood Pressure Position Supine Blood Pressure Location Left Arm Pulse Ox 100 Oxygen Delivery Method Room Air [facility] Narrative Medical decision making narrative: HISTORY OF PRESENT ILLNESS: Chief complaint: Vaginal bleed 64-year-old female history of nephrolithiasis, Parkinson's disease, hypothyroidism, GERD, DVT, emphysema, overactive bladder, leiomyoma of the uterus presents with vaginal bleeding. Per triage note patient had bright red vaginal bleeding with large clots that started yesterday around 130. Notes sheis bleeding through to heavy flow packages. Endorses increased fatigue and shaking. Patient does not take blood thinners. REVIEW OF SYSTEMS: Pertinent positives: Vaginal bleeding, lightheadedness, fatigue, near syncope Pertinent negatives: Chest pain PHYSICAL EXAM: Nursing triage notes reviewed, Vital signs reviewed Constitutional: please see [facility] HENT: MMM Eyes: Pupils equal round and reactive to light, Extraocular muscles intact Neck: No stridor, no JVD, full neck ROM Lungs: Clear to auscultation, No wheezing or rales. No increased work of breathing, no conversational dyspnea, no accessory muscle use, no nasal flaring. No respiratory distress noted Heart: Regular rate and rhythm, No murmurs, No rubs and No gallops, 2+ distal pulses (radial, femoral, posterior tibial) in all extremities Abdomen: Soft, there is no tenderness, rigidity, rebound or guarding, no obviousperitoneal signs, no palpable pulsatile abdominal masses, no auscultated abdominal bruit : No CVAT, pelvic exam performed with hat body inspector in room showed no obvious abnormalities. No lacerations. Cervical os was closed. No active bleeding. Extremities: No edema Neuro: No new focal neurological deficits, cranial nerves II through XII intact,5/5 strength in allpresent extremities. Intact sensation to light touch in all present extremities, 2+ reflexes bilateral patella tendons. Skin: No rash or lesions noted MEDICAL DECISION MAKING: 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: please see [facility] External records reviewed: Reviewed prior imaging studies: Reviewed CT scan headand pelvis from 03/09. No uterine masses were noted during this evaluation Factors affecting care: As per HPI Social determinants of health: none History obtained from others: family Consults: AUTOMOTIVE SERVICE PROFESSIONAL (Dr. Juarez Bryant) discussed giving TXA the patient has heavy bleeding. Discussed giving progesterone if heavy bleeding. Discussed transferring to definitive Chief Gauger-oncology care. AUTOMOTIVE SERVICE PROFESSIONAL [facility] (Dr. Chang), ER (Dr. Muhammad) MDM Narrative: Patient was initially tachycardic heart rate of 114, soft blood pressure initially at 92/62, afebrile. Exam without abdominal TTP. Pelvic exam essentially unremarkable with no active bleeding. Cervical os closed. I considered the following differential diagnosis: Uterine leiomyoma, anemia, pelvic mass I obtained broad lab and imaging work to further determine if the patient was suffering from a life-threatening etiology. Initially resuscitated patient with 1 L normal saline ALL IMAGES (IF OBTAINED) HAVE BEEN PERSONALLY REVIEWED AND INTERPRETED BY MYSELF. CBC with leukocytosis suggestive of systemic examination, noted severe anemia with hemoglobin 8.5 prior 11.6, no thrombocytopenia BMP with hyponatremia, baseline CKD, no evidence hepatobiliary obstruction CT scan of the pelvis shows the following: Clinical correlation for constipation. Gastrointestinal findings discussed above. Bilateral worsening moderate to severe hydronephrosis. Thick-walled abnormal appearance of the urinary bladder. Genitourinary findings, differential and recommendations discussed above. Transvaginal ultrasound shows Fluid-filled uterine cavity. This is atypical forthe patient's age. The endometrium itself is not clearly identified or measured. After normal saline patient's blood pressure improved. Given drop in hemoglobinand concern for ongoing bleeding I did order 2 units of packed red blood cells. These were transfused. Discussed the case with AUTOMOTIVE SERVICE PROFESSIONAL here as well as [facility]. Discussed with [facility] OB who noted patient was appropriate ED to ED transfer. Discussed with ED physician Dr. Muhammad who agreed to accept the patient in transfer. Upon reassessment patient blood pressure improved to 122/101. The patient and/or family, caregivers express understanding. The patient and/orfamily, caregivers agrees with the plan. Shared decision making: I will have a discussion with the patient and or visitors regarding risk/benefits of further testing or admission. They will be made aware of of the risk/benefits inherent in this decision they will be given the opportunity to voice understanding. Total critical care time today provided was at least 60 minutes. This excludes separately billable procedures. Critical care time (if documented) is secondary to the patient having high probability of clinically significant/life threatening deterioration in the patient's condition which required myurgent intervention. Impression: 1. Acute blood loss anemia 2. Vaginal bleeding 3. Hypotension Dispo: Transfer to [facility] emergency department This note was generated with Instapio dictation software. It may contain incorrectwords, spelling, and punctuation that were not noted in review of the chart prior to signing. Lab Data Labs: Laboratory Results - last 24 hr 01/21/25 20:00 WBC 22.8 H RBC 3.24 L Hgb 8.5 L Hct 26.9 L MCV 83.0 MCH 26.2 L MCHC 31.6 L RDW Std Deviation 42.1 RDW Coeff of Vanessa 13.8 Plt Count 281 MPV 10.1 Immature Gran % (Auto) 0.700 Neut % (Auto) 86.6 H Lymph % (Auto) 3.3 L [place] % (Auto) 9.3 Eos % (Auto) 0.0 Baso % (Auto) 0.1 Absolute Neuts (auto) 19.8 H Absolute Lymphs (auto) 0.75 L Nucleated RBC % 0 Platelet Estimate ADEQUATE RBC Morphology NORM C+C Sodium 132 L Potassium 3.5 Chloride 98 Carbon Dioxide 22.4 Anion Gap 12 BUN 32 H Creatinine 2.06 H Estim Creat Clear Calc 27.29 L Est GFR (MDRD) Non-Af 26 L BUN/Creatinine Ratio 15.5 Glucose 157 H Calcium 9.3 Total Bilirubin 0.49 AST 32 ALT < 5 Alkaline Phosphatase 102 Total Protein 6.2 Albumin 3.3 L Globulin 2.8 Albumin/Globulin Ratio 1.2 Blood Type O POSITIVE Antibody Screen NEGATIVE Crossmatch See Detail Radiography Diagnostic Testing: Clinical Impression(s) from Imaging Studies Abdomen/Pelvis CT 01/21/25 21:03 IMPRESSION: Clinical correlation for constipation. Gastrointestinal findings discussed above. - Bilateral worsening moderate to severe hydronephrosis. Thick-walled abnormal appearance of the urinary bladder. Genitourinary findings, differential and recommendations discussed above. - Other findings discussed above in detail. Reading Location: [id number] Discharge Plan Triage 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: Vag Bleeding ED Provider: Michelle Mosher Dx/Rx/DC Orders Prescriptions: No Action ondansetron 4 mg tablet,disintegrating 4 mg PO Q8H PRN (Reason: nausea and vomiting) levothyroxine 100 mcg capsule 100 mcg PO QDAY carbidopa-levodopa [Sinemet] 25-100 mg tablet 1 tab PO TID pantoprazole 20 mg tablet,delayed release (DR/EC) 20 mg PO QDAY Qty: 30 2RF carbidopa 25 mg tablet 25 mg PO TID aspirin 81 MG tablet,chewable 81 mg PO DAILY@0800 cholecalciferol (vitamin D3) [Vitamin D3] 1,000 UNIT tablet 1,000 unit PO BID mycophenolate mofetil [CellCept] 500 mg tablet 500 mg PO BID Probiotic Acidophilus 250 million cell capsule 500 mmu cells PO DAILY amitriptyline 50 mg tablet 100 mg PO QHS multivitamin [Daily Multi-Vitamin] Tablet 1 tab PO DAILY fludrocortisone 0.1 mg tablet 0.3 mg PO DAILY Trulance 3 mg tablet 3 mg PO QDAY Qty: 30 1RF Primary Care Provider: Gonzalo Day Referrals: Gonzalo Day MD [Primary Care Provider] - Print Language: Colombian Disposition Disposition: Acute Care Hospital Discharge Location: [facility] What to do if you have Problems For any increased pain, shortness of breath, bleeding, nausea or vomiting, chestpain, or any unexpected problems, contact your Primary Care Provider. Call [facility] ([phone]) or report tothe closest Emergency Room. Call 911 if necessary. 01/21/25 0415 Cosigner Signature (if applicable): CC: Dr. Gonzalo Day MD ~ Signed [facility]09-07-2025 Radiology Diagnostic study note [facility] Imaging Services [address] [place], [place] [address] Transvaginal Non- MR#: [id number] Acct: [id number] Name: EREN MERCHANT Rep #: [id number] : 1960 F 64 From: Herminio Garcia MD PCP: Dr. Gonzalo Day MD Status: [facility] ER Study:Transvaginal Non- Date of Exam: 01/21/25 Exam# [id number] Ordering Dr: Frida Mosher DO PROCEDURE: TRANSVAGINAL NON- 01/21/2025 REASON FOR EXAM: VAGINAL BLEEDING TECHNIQUE: Procedure Code: USTVAG Modality: US Procedure: TRANSVAGINAL NON- COMPARISON: CT dated earlier on the same day. FINDINGS: The uterus measures 6.5 x 3.0 by 4.1 cm. A questionable subcentimeter fibroid may be present. The uterine cavity is fluid-filled, however the actual endometrium is not clearly identified or measured. The measured endometrial thickness is 12.1 mm, however this includes the fluid-filled cavity. Within the left adnexa, there is an oblong tubular shaped fluid-filled structure, concerning for a dilated fallopian tube. This may represent hydrosalpinx. Alternatively, this could represent a severely dilated ureter. A 7.1 x 5.8 x 5.8 cm fluid-filled structure within the midline of the pelvis mayrepresent the urinary bladder, within which there is heterogeneous echogenic debris Neither ovary is visualized.. US/Transvaginal Non- IMPRESSION: 1. [place] tubular shaped fluid-filled structure in the left adnexa. This couldrepresent hydrosalpinx, however this might also represent a severely dilated ureter. 2. Fluid-filled structure in the midline of the pelvis may represent the urinary bladder, within which there is heterogeneous echogenic debris. Consider further evaluation via cystoscopy. 3. Fluid-filled uterine cavity. This is atypical for the patient's age. The endometrium itself is not clearly identified or measured. 4. Questionable subcentimeter uterine fibroid. Reading Location: [facility] CC: Dr. Gonzalo Day MD; Dr. Michelle Mosher DO ~ Shipping Services Sales Representative: Signed [facility]09-07-2025 Radiology Diagnostic study note [facility] Imaging Services [address] [place] [address] Abdomen/Pelvis W IV Cont ONLY MR#: [id number] Acct: [id number] Name: EREN MERCHANT Rep #: [id number] : 1960 F 64 From: Chris Guthrie MD PCP: Dr. Gonzalo Day MD Status: REG ER Study:Abdomen/Pelvis W IV Cont ONLY Date of E xam: 01/21/25 Exam# [id number] Ordering Dr: Frida Mosher DO PROCEDURE: ABDOMEN/PELVIS W IV CONT ONLY N/A REASON FOR EXAM: VAGINAL BLEEDING TECHNIQUE: Procedure Code: [id number] Modality: CT Procedure: ABDOMEN/PELVIS W IV CONT ONLY Coronal and Sagittal reconstruction series were provided. CONTRAST: Please see CT data VOLUME: Please see CT mL One or more dose reduction techniques were used (e.g., Automated exposure control, adjustment of the mA and/or kV according to patient size, use of iterative reconstruction technique. RADIATION DOSE SUMMARY: CTDlvol: Please see CT mGy DLP: 882.18 mGycm COMPARISON: CT abdomen/pelvis March 03, 2024. The prior report is not available for review. FINDINGS: Study limitations: Lung bases: Trace amount of pleural fluid or pleural thickening at the visualized lung bases. There is some calcified pleural plaque at the right costophrenic angle. Ground-glass and reticular opacities at the visualized lung bases may be due to atelectasis, pulmonary parenchymal fibrotic changes or interstitial pneumonitis. Clinical correlation with symptoms. Liver: Hepatic length is 15.5 cm. Hepatic attenuation is consistent with mild steatosis. 3 mm hypodense hepatic lesion noted within the posterior segment of the right lobe, too small to further characterize. Clinical correlation with risk factors. Gallbladder/biliary: The gallbladder is not visualized. No significant biliary dilation. Pancreas: No pancreatic inflammation. No pancreatic ductal dilation. Spleen: The spleen is not enlarged. Adrenals: The adrenal glands are within normal limits. Kidneys/ureters: The kidneys appear edematous bilaterally with moderate to severe bilateral hydronephrosis. Hydronephrosis appears slightly worse than the prior exam. There is mild bilateral urothelial enhancement. Cause of hydronephrosis is indeterminate. No obstructive calculi are seen. Please see urinary bladder findings. Nonspecific bilateral perinephric stranding.Lobular contour of the kidneys. Areas of renal cortical thinning noted. Bilateral perinephric stranding. Any possibility of infection to be correlated with urinalysis and culture. 10 mm right lower pole renal cyst. Gastrointestinal: The visualized distal esophagus appears thick-walled and edematous. Clinical correlation for esophagitis. The stomach is not sufficiently distended to evaluate wall thickening. No appearance of the complete small bowel obstruction. Nonspecific fluid- filledloops of small bowel. No focal mesenteric inflammation. Portions of the colon and rectum are distended with fecal material up to 9 cm indiameter which could be correlated for constipation. No pericolonic inflammation. No evidence of acute diverticulitis. Colonic loops are redundant but do not appear to be involved by volvulus. Appendix: The appendix is not visualized and may have been removed. Peritoneal/retroperitoneal: No free intraperitoneal air. There is no free fluid. Vascular: The entire heart is not included on this exam. Visualized cardiac size is enlarged. No abdominal aortic aneurysm, dissection or retroperitoneal hemorrhage. Mild appearing atherosclerosis noted. Urinary bladder: The urinary bladder appears irregularly thick-walled. There is mild perivesicalstranding with mucosal enhancement. Reticular density or enhancement noted within the urinary bladder. Findings may be secondary to infection containing bladder debris. Malignancy can not be ruled out. Inflammation/infection could be the cause of bilateral hydronephrosis, however stricture or neoplasm can not be ruled out. Urology consultation is advised for diagnosis. Direct visualization and soft tissue diagnosis as clinically appropriate. Correlation with hematuria and urinalysis. Reproductive: Anteverted uterus measuring 6.5 cm in length. Slight heterogeneity of the cervix. Correlation with Pap smear. The endometrial complex is not well characterized by this technique. The ovaries are not well assessed by this technique. If there are pelvic symptoms consider ultrasound. Soft tissues: No body wall hematoma or soft tissue emphysema. Left posterior gluteal electronic stimulator device noted. Osseous: Mild superior endplate compression fracture deformity at T12 is similar to the prior exam. Moderately severe superior endplate compression fracture deformity at L3 is new compared to the prior exam but of indeterminate immediate acuity. Clinical correlation is advised. Pathologic lesion can not be ruled out by this study. If the patient has a history of malignancy, consider further evaluation by MRI. CT/Abdomen/Pelvis W IV Cont ONLY IMPRESSION: Clinical correl (more content not included)...[facility] 01-10-2025 Instructions* Patient Instructions* Jasmyne Day MD - 01/10/2025 9:20 AM EDT - [...] you have concerns sooner. [facility] History of Present illness Narrative* Jasmyne Day MD - 01/10/2025 8:55 AM EDT 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 Patient presents with: Blood Pressure Check: 2 week follow up Recording using Verifico software for draft documentation of the visit was discussed with the patient/authorized help desk representative; all questions welcomed and answered. Patient/authorized help desk representative agreed to proceed HPI Eren Merchant [...] of uterus Malnutrition of moderate degree ([facility]) 06/15/2018 Nephrolithiasis NSIP (nonspecific interstitial pneumonia) ([facility]) Obesity, Class I, BMI 30-34.9 E66.9 09/03/2017 Osteopenia Overactive bladder Parkinson disease ([facility]) Primary osteoarthritis of first carpometacarpal joint of right hand 08/05/2017 Added automatically from request for surgery [id number] Rectal bleed 09/05/2014 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, Masaoka [...] UNI/BI Tubal ligation LX PARTIAL COLECTOMY 12/23/2017 [facility] lap lysis of adhesions, left [...] Rarely Drug use: No documented in this encounterBarn[facility]08-26-2025 Instructions* Patient Instructions* Mathew Yang Jr., MD - 01/09/2025 2:26 PM EDT Counseled patient on increasing fluids, avoiding salt, avoiding caffeine, avoiding large portions of animal fat/meats at one time and increasing citrates in diet. documented in this encounterBarn[facility]08-26-2025 History of Present illness Narrative* Mathew Yang Jr., MD - 01/09/2025 2:21 PM EDT ESTABLISHED PATIENT OFFICE VISIT HPI [...] Had LL with Dr. Bowen. Doing well now.Kub neg today. No fever. No uti. LAB: Creatinine Date Value Ref Range Status 12/20/2024 1.40 (H) 0.58 - 0.96 mg/dL Final No results found for: PSA Glucose, Urine Date Value 08/17/2024 Negative 03/22/2020 Negative mg/dL Bilirubin, Urine (no units) Date Value 08/17/2024 Negative 03/22/2020 Negative Ketones, Urine (no units) Date Value 08/17/2024 Negative 03/22/2020 Negative Specific [place], Ur (no units) Date Value 08/17/2024 1.019 [...] of uterus Malnutrition of moderate degree ([facility]) 06/15/2018 Nephrolithiasis NSIP (nonspecific interstitial pneumonia) ([facility]) Obesity, Class I, BMI 30-34.9 E66.9 09/03/2017 Osteopenia Overactive bladder Parkinson disease ([facility]) Primary osteoarthritis of first carpometacarpal joint of right hand 08/05/2017 Added automatically from request for surgery [id number] Rectal bleed 09/05/2014 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, Masaoka [...] Rarely Drug use: No documented in this encounterBarn[facility]08-18-[facility] Radiology Diagnostic study note [facility] Imaging Services [address] [place] [address] Abdomen Single View MR#: [id number] Acct: [id number] Name: EREN MERCHANT Rep #: [id number] : 1960 F 64 From: Umang Ricci MD PCP: Dr. Gonzalo Day MD Status: REG CLI Study:Abdomen Single View Date of Exam: 12/29/24 Exam# [id number] Ordering Dr: Hilary Soto PROCEDURE: ABDOMEN SINGLE [...] constipation. Other findings as noted. Reading Location: [id number] CC: Dr. Gonzalo Day MD; KAUSHAL Alas ~ Shipping Services Sales Representative: Signed [facility] Work Phone: [phone] 149-182508-15-2025 [facility] Gastroenterology [address] [place] [address] OFFICE VISIT Date of Service: 12/29/24 MR#: [id number] Acct: [id number] Name: EREN MERCHANT Rep #: [id number] : 1960 Provider: KAUSHAL Alas Age/Sex: 64/F Location: [facility] Status: Signed Intake Vital Signs 12/22/24 12:21 Height 5 ft 5 in Intake Visit Reasons: ABORTED COLONOSCOPY -IMPACTED 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: abd pain Allergies cetirizine (From Zyrtec) Allergy (Intermediate, Verified 12/22/24 12:18) Rash erythromycin [...] mg tablet 100 mg PO QHS 07/07/24 0801/08 History carbidopa 25 mg-levodopa 100 mg 1 [...] Normal second portion of the duodenum. OV 2.25 Pt doing well today. Reviewed EGD results [...] well. Start Linzess 72 mcg faily Colonoscopy 8.8.25 - Stool in the entire examined colon. - No specimens collected OV 815. patient has had just 1 bowel movement [...] Const General: cooperative, healthy appearing and comfortable [facility] Head: normal to inspection Eyes General: appearance [...] here today for follow-up after colonoscopy. Colonoscopy wasunable to be completed due to incomplete prep. [...] better for the constipation. She has been takingthe Trulance for over a month now. I advise she continue Trulance and do a fleets enema. Will considerswitching back to Linzess or other a laxative to get her going. I have also ordered a KUB to asses s for constipation. During her visit today, she sits comfortably and does not tender to palpation of her abdomen. She denies obstructive symptoms including nausea, vomiting, abdominal pain or lack ofappetite. Patient was scheduled for repeat colonoscopy with GoLytely prep. - KUB - Continue Trulance - [...] in the past year?: No 12/29/24 0823 frank EASLEY> Date _ Hilary EASLEY Cosignbyron Signature: Date (if applicable) CC: ~ [facility]08[facility]13[facility]20[facility] History of Present illness Narrative* Peyton Diaz APRN.DIRECTOR OF FIELD COORDINATION - 12/27/2024 2:29 PM EDT This is a 64 year old female [...] of uterus Malnutrition of moderate degree ([facility]) 06/15/2018 Nephrolithiasis NSIP (nonspecific interstitial pneumonia) ([facility]) Obesity, Class I, BMI 30-34.9 E66.9 09/03/2017 Osteopenia Overactive bladder Parkinson disease ([facility]) Primary osteoarthritis of first carpometacarpal joint of right hand 08/05/2017 Added automatically from request for surgery [id number] Rectal bleed 09/05/2014 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 Lemon PAST SURGICAL HISTORY OF 10/24/2009 Removed T9-L1, 2 rods and 8 screws, Dr Lemon PAST SURGICAL HISTORY OF 11/2018 Hysteroscopy with D&C and Polypectomy with Burroughs and [employer] Truclear device PICC LINE INSERT/CONSULT 07/11/2018 THYMECTOMY [...] as needed for worsening/no improvement. Peyton Diaz APRN.DIRECTOR OF FIELD COORDINATION Recording using Verifico software for draft documentation of the visit was discussed with the patient/authorized help desk representative; all questions welcomed and answered. Patient/authorized help desk representative agreed to proceed [1] Social History Tobacco Use Smoking status: Never Passive exposure: Never Smokeless tobacco: Never Tobacco comments: No one in household smokes. Smoker in childhood home. Vaping Use Vaping status: Never Used Substance Use Topics Alcohol use: Yes Comment: Rarely Drug use: No documented in this encounterBarnesville Hospital08-13-2025 Instructions* Patient Instructions* Peyton Diaz APRN.DIRECTOR OF FIELD COORDINATION - 12/27/2024 2:25 PM EDT Increase the florinef to pills in the morning and one in the evening. Recheck in 2 weeks. documented in this encounterBarnesville Hospital08-08-2025 History and physical note Author Aditya Cota [facility] Note Date/Time December 22, 2024 12: 26pm [facility] Medical Records Department [address] [place] [address] History & Physical Exam 12/22/24 1224 MR#: [id number] Acct: [id number] Name: SHONDAEREN M Rep #:[id number] : 1960 64 From: Aditya Cota DO PCP: Dr. Gonzalo Day MD Status :[facility] Location: [place] [address] HPI - General General Date of Admission: [...] with recommendationfor f/u in 8 weeks. OV 04.06. Pt feeling better on anti fungal medications [...] daily, start colace 200 mg daily OV 11.08.25 Pt continues to have constipation while taking [...] Reaction Status Date / Time cetirizine (From [facility]) Allergy Intermediate Rash Verified 12/22/24 12:18 erythromycin [...] Gonzalo Day MD; Aditya Cota DO~ Signed [facility] Work Phone: 1(230) 536-813708-08-2025 Consult [address] [facility] Medical Records Department [address] [facility] [place] [address] Anesthesia Postop Eval I 12/22/24 1358 MR#: [id number] Acct: [id number] Name: EREN MERCHANT Rep #:[id number] : 1960 64 From: Ana Pardo CRNA PCP: Dr. Gonzalo Day MD Status :REG [facility] Y Race: C Location: [place] [address] Anesthesia: Postop Eval I Current Vital Signs Temperature: 97.9 F Pulse Rate: 84 Blood Pressure: 123/55 Respiratory Rate: 20 Pulse Ox: 100 Assessment Airway patent: Yes Spontaneous unlabored respirations: Yes nausea: No Vomiting: No Anesthesia Complication: No Fluid Hydration Crystalloid volume administer (ml): 200 Total IV fluid infused: 200 Progress Note Anesthesia document: Postop Eval 1 completed: Yes 12/22/24 1359 a HAT BLOCKING MACHINE OPERATOR> Date _ Ana Pardo HAT BLOCKING MACHINE OPERATOR Cosigner Signature: Date CC: ~ Signed [facility]08-08-2025 Procedure note [facility] Medical Records Department [address] [place] [address] Colonoscopy Report MR#: [id number] Acct: [id number] Name: EREN MERCHANT Rep #:[id number] : 1960 64 From: Aditya Cota DO PCP: Dr. Gonzalo Day MD Status :REG [facility] Patient Name: Eren Merchant Procedure Date: 12/22/2024 [...] was poor. Procedure Code(s): --- Professional --- 94559, 53, Colonoscopy, flexible; diagnostic, including collection of specimen(s) by brushing or washing, when performed (separate procedure) CPT copyright 2021 [employer]. All rights reserved. The codes documented in this report are preliminary and upon plastics fabricator or welder review may be revised to meet current compliance requirements. Aditya Cota DO 12/22/2024 1:55:32 PM This report has been signed electronically. Number of Addenda: 0 Note Initiated On: 12/22/2024 1:36 PM 12/22/24 1355 Date _ Aditya Cota DO Cosigner Signature: Date (if indicated) CC: Dr. Gonzalo Day MD; Aditya Cota DO ~ Date Dictated: 12/22/24 1336 Date Transcribed: Shipping Services Sales Representative: RF Signed [facility]08-08-2025 Procedure note [facility] Medical Records Department [address] [place] [address] Provation Physician Letter MR#: [id number] Acct: [id number] Name: EREN MERCHANT Rep #:[id number] : 1960 64 From: Aditya Cota DO PCP: Dr. Gonzalo Day MD Status :[facility] 12/22/2024 Gonzalo Day Re : Colonoscopy procedure [...] Aditya Cota DO ~ Date Dictated: 12/22/24 1336 Date Transcribed: Shipping Services Sales Representative: RF Signed [facility]08-08-2025 Consult note [facility] Medical Records Department [address] [place] [address] Pre-Anesthesia Evaluation 12/22/24 1306 MR#: [id number] Acct: [id number] Name: EREN MERCHANT Rep #:[id number] : 1960 64 From: Estevan Crowder MD PCP: Dr. Gonzalo Day MD Status :REG [facility] Y Race: C Location: [place] [address] ASA Classification* ASA Classification ASA Classification: 3 [...] Procedure(s): COLONOSCOPY Anesthesia History Anesthesia History - jacquard card cutter: Anesthesia History - jacquard card cutter Hx Hospitalization Yes: 03/2024- 7 DAYS, [facility]. [...] am of surgery: Levothyroxine PONV PONV - jacquard card cutter: PONV - jacquard card cutter Female Yes 12/19/24 12:42 HX of Motion [...] 12/22/24 12:21 Respiratory Assessment Respiratory Assessment - jacquard card cutter: Respiratory Tract Infection Hx - jacquard card cutter Hx Respiratory Tract Infection No 12/19/24 12:42 STOP Sleep Apnea STOP Sleep Apnea - jacquard card cutter: STOP Sleep Apnea - jacquard card cutter Hx Hypertension No 12/19/24 12:42 Hx Sleep [...] Tobacco Use History Tobacco Use History - jacquard card cutter: Tobacco Use History - jacquard card cutter Tobacco Use Smoking Status Never smoker 12/19/24 12:42 Hx Tobacco Use No 12/19/24 12:42 Years Smoking Packs Smoked per Day Smoking Cessation Date was within the last 15 years Hx Smoking Cessation Date Hx Smoking Cessation Counseling Hematologic Medial History Hematologic Hx - jacquard card cutter: Hematologic Medical Hx - engineering documentation specialist Hx of Blood Transfusion No 12/19/24 12:42 [...] confused, unrespo /Reproduction History /Reproductive History - jacquard card cutter: /Reproductive Hx- jacquard card cutter Hx Now Gestational Age (in weeks): EDC: [...] Reaction Status Date / Time cetirizine (From [facility]) Allergy Intermediate Rash Verified 12/22/24 12:18 erythromycin [...] MD Cosigner Signature: Date CC: ~ Signed [facility]08-08-2025 History and physical note [facility] Medical Records Department [address] [place] [address] History & Physical Exam 12/22/24 1224 MR#: [id number] Acct: [id number] Name: EREN MERCHANT Rep #:[id number] : 1960 64 From: Aditya Friend DO PCP: Dr. Gonzalo Day MD Status :[facility] Location: [place] [address] HPI - General General Date of Admission: 12/22/24 Date of Service: 12/22/24 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: Abdominal pain HPI Narrative EREN MERCHANT, is a 64 F who presents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: abd pain BGI established March 2024 after F hospitalization for seizure like activity. She was [...] Reaction Status Date / Time cetirizine (From [facility]) Allergy Intermediate Rash Verified 12/22/24 12:18 erythromycin [...] applicable): CC: Dr. Gonzalo Day MD; Aditya Cota, ~ Signed [facility]08-08-2025 [facility] Medical Records Department [address] [place] [address] History Physical Exam 12/22/24 1224 MR#: [id number] Acct: [id number] Name: EREN MERCHANT Rep #: [id number] : 1960 64 From: Aditya Cota DO PCP: Dr. Gonzalo Day MD Status:[facility] Location: [place] [address] HPI - General General Date of Admission: [...] recommendation for f/u in 8 weeks. OV 11..25 Pt [...] Reaction Status Date / Time cetirizine (From [facility]) Allergy Intermediate Rash Verified 12/22/24 12:18 erythromycin base AdvReac Intermediate Diarrhea Verified 12/22/24 12:18 azithromycin AdvReac Mild Diarrhea Verified 12/22/24 12:18 Family History Mother Thyroid disorder Hypertension Father Heart disease Hypertension COPD (chronic obstructive pulmonary disease) Surgical History S/P laparoscopic appendectom (more content not included)...[facility]08-06-2025 NoteA[facility]07-30-2025 Instructions* Patient Instructions* Cyndi Naik APRN.CNP - 12/13/2024 8:08 AM EDT - Take Florinef 0.2 mg (two 0.1 mg tablets) once daily with breakfast; prescription sent to [facility]. - Continue drinking 2 liters of fluid [...] and review your symptoms. documented in this encounterBarnesville Hospital07-30-2025 NoteA[facility]07-30-2025 History of Present illness Narrative* OlvinlogCyndi shafer APRN.SAMIR - 12/13/2024 7:38 AM EDT 12/13/2024 Patient presents with: Recheck Recording using Verifico software for draft documentation of the visit was discussed with the patient/authorized help desk representative; all questions welcomed and answered. Patient/authorized help desk representative agreed to proceed SUBJECTIVE: This is [...] in the hospital in February; discontinued by billing manager Dr. Harrison May. - Dr. Steve, based in [facility]. 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 Cyndi Naik APRN.CNP Prescription instructions reviewed with patient as applicable. Patient advised if symptoms do not improve or if symptoms worsen sooner, to contact their primary care physician. Potential red flag symptoms discussed with the patient. Reviewed appropriate action plan to take if red flag symptoms occur. Patient agreeable to treatment plan. 56839 OVERALL COMPLEXITY Problem Complexity: Moderate Data Level: [...] test performed by another physician/other qualified health manager intensive care: - Discussion of management or test interpretation with external physician/other qualified health manager intensive care/appropriate source: Data complexity level: Minimal; minimal or no complexity requirements met RISKS SECTION: Prescription drug management (increase Florinef dose) - Moderate complexity Non-pharmacologic management (compression stockings, fluid intake, safety education) - Minimal complexity Home BP monitoring - Minimal complexity Risks complexity level (highest from above): Moderate documented in this encounterBarnesville Hospital07-23-2025 NoteA[facility]07-23-2025 History of Present illness Narrative* Charis Lopez APRN.CNM - 12/06/2024 8:03 AM EDT Block Sealer offered: Patient declines. Eren is a 64 year old who presents for an annual gynecologic exam without complaints. Justmoved in with son and family. 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 Lemon PAST SURGICAL HISTORY OF 10/24/2009 Removed T9-L1, 2 rods and 8 screws, Dr Lemon PAST SURGICAL HISTORY OF 11/2018 Hysteroscopy with D&C and Polypectomy with Burroughs and [employer] Truclear device PICC LINE INSERT/CONSULT 07/11/2018 THYMECTOMY [...] discussed with the Patient or Patient's Authorized Upholsterer Outside. As applicable, any other physician, advance practice provider, medical student, or other health professional student that will be observing or involved in the sensitive examination for educational or training purposes was discussed with the Patient or Authorized Upholsterer Outside. The Patient or Authorized Upholsterer Outside has agreed to proceed with the sensitive [...] Dr. Cipriano Lopez APRN.CNM documented in this encounterBarnesville Hospital07-16-2025 Instructions* Patient Instructions* Jasmyne Day MD - 11/29/2024 10:06 AM EDT - Florinef (fludrocortisone) 0.1 mg by mouth once daily each morning; prescription sent to [facility] pharmacy - Drink at least 2 liters [...] how you re doing documented in this encounterBarnesville Hospital07-16-2025 [facility]07-16-2025 History of Present illness Narrative* Jasmyne Day MD - 11/29/2024 9:41 AM EDT 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 Patient presents with: Blood Pressure: Saw Neurology on 11/16/24. Concerns of Orthostatic hypotension. States her BP ishimhe64 points. Some intermittent dizziness with standing. Recording using Verifico software for draft documentation of the visit was discussed with the patient/authorized help desk representative; all questions welcomed and answered. Patient/authorized help desk representative agreed to proceed HPI Eren Merchant [...] fludrocortisone in the hospital for orthostatic hypotension; billing manager discontinued it, but Eren has taken it [...] of uterus Malnutrition of moderate degree ([facility]) 06/15/2018 Nephrolithiasis NSIP (nonspecific interstitial pneumonia) ([facility]) Obesity, Class I, BMI 30-34.9 E66.9 09/03/2017 Osteopenia Overactive bladder Parkinson disease (HCC) Primary osteoarthritis of first carpometacarpal joint of right hand 08/05/2017 Added automatically from request for surgery [id number] Rectal bleed 09/05/2014 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 Jasmyne Day MD documented in this encounterBarnesville Hospital07-03-2025 Instructions* Patient Instructions* Gemma Roberts APRN.DIRECTOR OF FIELD COORDINATION - 11/16/2024 8:56 AM EDT It was a pleasure to see you today. We addressed the following diagnoses: Parkinsonism, unspecified parkinsonism type (hcc) Constipation, unspecified [...] prn No follow-ups on file. Your current [facility] Movement Disorders Team includes: Primary Movement Disorders Neurologist: Bogdan Roberts MD Primary Movement Disorders Advanced Practice Provider: Gemma Roberts CNP If there are any concerns before your next visit, please call or you can send a message through [email or web address]. You can also now schedule and select appointments through [facility] Gemma Roberts APRN.DIRECTOR OF FIELD COORDINATION documented in this encounterBarnesville Hospital07-03-2025 NoteA[facility]07-03-2025 History of Present illness Narrative* Gemma Roberts APRN.SAMIR - 11/16/2024 7:57 AM EDT [facility] - FOLLOW UP EVALUATION Priyanka Smith MD [address] [facility] [address] Dear Priyanka Smith MD: I had the pleasure of seeing Ms. Merchant for follow-up today. As you know she is a 64 year old right-handed female with a history of tremor since 2021. She is seen with her akryowge-sp-puo, Clementina. 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 Time spent 67 min on the day of service, which included preparing to see the patient, gnbz-qv-vjun patient care, completing clinical documentation, obtaining and/or reviewing separately obtained history, performing a medically appropriate examination, and counseling and educating the patient/family/caregiver. Gemma Roberts APRN.DIRECTOR OF FIELD COORDINATION documented in this encounterBarnesville Hospital07-01-2025 Telephone encounter Note * Telephone Encounter - Geni Palmer RN - 11/14/2024 5:30 PM EDT Called Patient. Verified name and . Notified pt that Elavil had been reordered, sent to preferred pharmacy on file. No further questions or concerns. Geni Palmer RN November 14, 2024 5:32 PM [facility]07-01-2025 Miscellaneous Notes* Telephone Encounter - Geni Palmer [...] daily at bedtime. Authorizing Provider: CLEMENTINA ESPOSITO APRN.DIRECTOR OF FIELD COORDINATION * Telephone Encounter - Luciano Garcia RN [...] week thereafter. - Prescription sent to [facility] in [place] Future appointments: Future Appointments Date Time Provider Department Center 11/16/2024 8:00 AM Gemma Roberts APRN.DIRECTOR OF FIELD COORDINATION NRMDN [facility] 12/06/2024 8:15 AM Charis Lopez APRN.CNM OBGYWM [place] 12/20/2024 8:00 AM XR [facility] 01/09/2025 2:30 PM Mathew Yang Jr., MD UROLMLesli [facility] 01/29/2025 9:[address] [facility] WSTR (I-STAT) RCTWS [place] 02/06/2025 9:00 AM Becca Mir APRN.DIRECTOR OF FIELD COORDINATION [facility] 02/08/2025 1:00 PM Wiley Benitez MD GYURWEamon [place] 07/16/2025 12:00 PM Priyanka Smith MD FAMPWS [facility] Appointment scheduled: No follow-up visit currently scheduled. [...] has 1 pill left. documented in this encounterBarnesville Hospital07-01-2025 Telephone encounter Note * Telephone Encounter - Clementina Esposito APRN.SAMIR - 11/14/2024 5:23 PM EDT I discontinued to Atarax and reordered Elavil. The following approved medication requests have been transmitted electronically. Requested Prescriptions Signed Prescriptions Disp Refills amitriptyline (ELAVIL) 100 mg tablet 30 tablet 5 Sig: Take 1 tablet by mouth daily at bedtime. Authorizing Provider: CLEMENTINA ESPOSITO APRN.DIRECTOR OF FIELD COORDINATION [facility]07-01-2025 Telephone encounter Note* Telephone Encounter - Tonny Holliday RN - 11/14/2024 3:54 PM EDT MC message addressed in TE 11/14/2024. Tonny Holliday RN November 14, 2024 3:54 PM [facility]07-01-2025 Miscellaneous Notes* Telephone Encounter - Tonny Holliday RN - 11/14/2024 3:54 PM EDT MC message addressed in TE 11/14/2024. Tonny Holliday RN November 14, 2024 3:54 PM documented in this encounterBarnesville Hospital07-01-2025 Telephone encounter Note * Telephone Encounter - [...] week thereafter. - Prescription sent to [facility] in [place] Future appointments: Future Appointments Date Time Provider Department Center 11/16/2024 8:00 AM Gemma Roberts, DUST BOX TENDER.DIRECTOR OF FIELD COORDINATION NRMDN [facility] 12/06/2024 8:15 AM Chrais Lopez DUST BOX TENDER.CNM OBGYWM [facility] 12/20/2024 8:00 AM XR [facility]OB [facility]MOB [facility] 01/09/2025 2:30 PM Mathew Yang Jr., MD UROLMD [facility] 01/29/2025 9:[address] [facility] WSTR (I-STAT) [facility] 02/06/2025 9:00 AM Becca Mir DUST BOX TENDER.DIRECTOR OF FIELD COORDINATION PULMWS [facility] 02/08/2025 1:00 PM Wiley Benitez MD GYURWP [place] 07/16/2025 12:00 PM [facility] Appointment scheduled: No follow-up visit currently scheduled. Action taken: Refill request routed to clinician Luciano Garcia RN November 14, 2024 11:40 AM [facility]07-01-2025 Telephone encounter Note* Telephone Encounter - Viri [...] She says she has 1 pill left. [facility]06-25-2025 [facility] Gastroenterology [address] [place] [address] [place] [address] OFFICE VISIT Date of Service: 11/08/24 MR#: [id number] Acct: [id number] Name: EREN MERCHANT Rep #: [id number] : 1960 Provider: KAUSHAL Alas Age/Sex: 64/F Location: [facility] Status: Signed Intake Vital Signs 06/06/24 14:36 [...] mcg (1,000 unit) tablet (Vitamin D3) geriatric zjobyedq-rhvr-auhg 1 ea PO DAILY 06/28/18 History (Complete Senior tablet) mycophenolate mofetil 500 mg 1,000 mg PO DAILY 10/19/2 4 11/08/24 History tablet (CellCept) levothyroxine 100 [...] recommendation for f/u in 8 weeks. OV 11.25 Pt feeling better on anti fungal medications [...] daily, start colace 200 mg daily OV 6..25 Pt continues to have constipation while taking [...] in the past year?: Yes 11/08/24 0832 frank EASLEY> Date _ Hilary EASLEY Cosigner Signature: Date (if applicable) CC: ~ [facility]06-17-2025 NoteA[facility]06-17-2025 History of Present illness Narrative* Sam Leandro, PT - 10/31/2024 2:51 PM EDT Images [...] OF CARE PLAN OF CARE UPDATE: Assessment: Erenyumiko Merchant is discontinued from Physical Therapy services due to Patient/Client declining further intervention.. Patient was seen for 5 visits from Start of Care Date: 09/29/23 to 10/31/2024 and treatment included: Therapeutic exercise, Manual therapy, and Self-mcc management. Goals for Episode of Care: established 09/29/23 Pt will be able to stand for 15 minutes without having to sit down due to quad fatigue for improved standing tolerance to cook and talk to people in the community and at home [facility] in home exercise program. Increased strength of [...] 1521 Leandro Vargas PT documented in this encounterBarnesville Hospital06-17-2025 History of Present illness Narrative* German Grubbs, DUST BOX TENDER.DIRECTOR OF FIELD COORDINATION - 10/31/2024 9:00 AM EDT Female Pelvic Medicine & Reconstructive Surgery Follow-Up Recording using Verifico software for draft documentation of the visit was discussed with the patient/authorized help desk representative; all questions welcomed and answered. Patient/authorized help desk representative agreed to proceed CHIEF COMPLAINT: Eren [...] the PFSH obtained by others. German Grubbs APRN.DIRECTOR OF FIELD COORDINATION Block Sealer offered: Patient declines. SENSITIVE EXAM: The sensitive examination was discussed with the Patient or Patient's Authorized Upholsterer Outside. As applicable, any other physician, advance practice provider, medical student, or other health professional student that will be observing or involved in the sensitive examination for educational or training purposes was discussed with the Patient or Authorized Upholsterer Outside. The Patient or Authorized Upholsterer Outside has agreed to proceed with the sensitive [...] week thereafter. - Prescription sent to [facility] in [place]. Medical Decision Making: Problems: Moderate: 2+ stable chronic illnesses Data: Unique test result(s) reviewed: 1 Risk: Moderate: Drug management Medical Decision Making Level: 4 - Moderate German Grubbs APRN.DIRECTOR OF FIELD COORDINATION documented in this encounterBarnesville Hospital06-17-2025 NoteAultman Alliance [facility]06-12-2025 History of Present illness Narrative* Karen Alcantara MD - 10/26/2024 9:30 AM EDT Images from the original note were not included. . [facility] [place] Note Patient name: Eren Merchant PCP: Priyanka [...] hydronephrosis due to nephrolithiasis and MANJIT. 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 Lemon PAST SURGICAL HISTORY OF 10/24/2009 Removed T9-L1, 2 rods and 8 screws, Dr Lemon PAST SURGICAL HISTORY OF 11/2018 Hysteroscopy with D&C and Polypectomy with Burroughs and Neph[employer]lympix Truclear device PICC LINE INSERT/CONSULT 07/11/2018 THYMECTOMY [...] mg twice daily Karen Alcantara MD [facility] [place] documented in this encounterBarnesville Hospital06-12-2025 NoteAultman Alliance Community Hospital06-03-2025 History of Present illness Narrative* Eufemia Anglin PT, DPT - 10/17/2024 11:07 AM EDT Program_ID:[id number] Access Code: [email or web address] URL: [email or web address] Date: 10-17-2024 Prepared By: Leandro Vargas Program [...] 3 sets - 10 reps * Eufemia Anglin, PT, DPT - 10/17/2024 10:31 AM EDT [...] 2: Seated hip march 4# at ankles [id number] 3: STS with 11# med ball, first [...] Eufemia Anglin PT, DPT documented in this encounterBarnesville Hospital06-03-2025 NoteAultman Alliance Community Hospital06-03-2025 Telephone encounter Note* Telephone Encounter - Carmita Avila - 10/17/2024 7:56 AM EDT Pt requesting refill as follows: Last FUV September 2024 with [facility] Requested Prescriptions Pending Prescriptions Disp Refills carbidopa-levodopa (SINEMET 25-100) 25-100 mg per tablet 270 tablet 3 Sig: Take 1 tablet by mouth three times a day. carbidopa (LODOSYN) 25 mg tab 270 tablet 3 Sig: Take 1 tablet by mouth three times a day. Upon approval, script will be sent electronically to the patient's pharmacy. Carmita Payton Tube Maker III [facility]06-03-2025 Miscellaneous Notes* Telephone Encounter - Carmita Avila - 10/17/2024 7:56 AM EDT Pt requesting refill as follows: Last FUV September 2024 with [facility] Requested Prescriptions Pending Prescriptions Disp Refills carbidopa-levodopa (SINEMET 25-100) 25-100 mg per tablet 270 tablet 3 Sig: Take 1 tablet by mouth three times a day. carbidopa (LODOSYN) 25 mg tab 270 tablet 3 Sig: Take 1 tablet by mouth three times a day. Upon approval, script will be sent electronically to the patient's pharmacy. Carmita Kosmerl, Tube Maker III documented in this encounterBarnesville Hospital05-28-2025 Evaluation note* Diagnosis Onset Date Resolution Status Admit Date Abdominal pain acute October 11, 2024 9:53am Candidiasis of esophagus acute October 11, 2024 9:53am Constipation acute October 11 9:53am GERD (gastroesophageal reflu x disease) chronic October 11, 2024 9 :53am Abdominal pain acute November 08, 2024 7:46am Constipation acute November 08, 025 7:46am [facility] Work Phone: 1(939) 626-564105-28-2025 Evaluation note* Diagnosis Onset Date Resolution Status Admit Date Abdominal pain acute October 11, 2024 9:53am Candidiasis of esophagus acute October 11, 2024 9:53am Constipation acute October 11 9:53am GERD (gastroesophageal reflu x disease) chronic October 11, 2024 9 :53am Abdominal pain acute November 08, 2024 7:46am Constipation acute November 08, 025 7:46am Abdominal pain acute December 11:52am Constipation acute December 22, 2024 11:52am Irritable bowel syndrome wit h constipation acute December 22, 2024 11:52am [facility] Work Phone: 1(770) 890-729205-28-2025 Evaluation note* Diagnosis Onset Date Resolution Status [...] wit h constipation acute December 29 7:52am [facility] Work Phone: 1(778) 683-673405-27-2025 History of Present illness Narrative* Leandro Vargas, PT - 10/10/2024 11:36 AM EDT Program_ID:[id number] Access Code: [email or web address] URL: [email or web address]/ Date: 10-10-2024 Prepared By: Leandro Vargas Program [...] 4 sets - 20 reps * Leandro Vargas, PT - 10/10/2024 11:01 AM EDT Episode [...] 1140 Leandro Vargas PT documented in this encounterBarnesville Hospital05-27-2025 NoteAultman Alliance Community Hospital05-19-2025 NoteAult[facility]05-19-2025 History of Present illness Narrative* Leandro [...] 827 Leandro Vargas PT documented in this encounterBarnesville Hospital05-15-2025 NoteAultman Alliance Community Hospital05-15-2025 History of Present illness Narrative* Leandro [...] people in the community and at home [facility] in home exercise program. Increased strength of [...] Planned: 4 Planned Treatment Interventions: Therapeutic exercise (61118), Neuromuscular re- education (39691), Manual therapy (25589), Self-mcc management (45129), Gait Training (73267) PLAN FOR NEXT VISIT: LE strengthening and [...] 999 Leandro Vargas PT documented in this encounterBarnesville Hospital05-09-2025 Instructions* Patient Instructions* Rika Adam APRN.DIRECTOR OF FIELD COORDINATION - 09/22/2024 1:46 PM EDT It was [...] or you can send a message through [email or web address]. You can also now schedule and select appointments through [email or web address]. Rika Adam APRN.SAMIR documented in this encounterBarnesville Hospital05-09-2025 NoteAultman Alliance [facility] Hospital05-09-2025 History of Present illness Narrative* Rika Adam APRN.CNP - 09/22/2024 1:37 PM EDT [facility] - FOLLOW UP EVALUATION Priyanka Smith MD [id number] [facility] [address] Dear Priyanka Smith MD: I had the [...] also has a prescription for Florinef that billing manager gave her with parameters of when to [...] mg 1 prn Level of service : 37013 (40-68 min). Time spent 51 min on the day of service, which included preparing to see the patient, [id number] patient care, completing clinical documentation, obtaining and/or [...] Sincerely, Rika Adam APRN.SAMIR documented in this encounterBarnesville Hospital05-08-2025 Telephone encounter Note * Telephone Encounter - Joy Arvizu LPN - 09/21/2024 8:49 AM EDT [facility] 06/20/24 Patient phones requesting refills as follows: Requested Prescriptions Pending Prescriptions Disp Refills mycophenolate Mofetil (CELLCEPT) 500 mg tablet 60 tablet 5 Sig: Take 1 tablet by mouth two times a day. Please review and advise. Joy Arvizu LPN [facility]05-08-2025 Miscellaneous Notes* Telephone Encounter - Joy Arvizu LPN - 09/21/2024 8:49 AM EDT [facility] 06/20/24 Patient phones requesting refills as follows: Requested Prescriptions Pending Prescriptions Disp Refills mycophenolate Mofetil (CELLCEPT) 500 mg tablet 60 tablet 5 Sig: Take 1 tablet by mouth two times a day. Please review and advise. Joy Arvizu LPN documented in this encounterBarnesville Hospital04-28-2025 Telephone encounter Note * Telephone Encounter - Caitlyn Garcia LPN - 09/11/2024 3:30 PM EDT Patient updated and voiced understanding. Caitlyn Garcia LPN [facility]04-28-2025 Miscellaneous Notes* Telephone Encounter - Caitlyn Garcia LPN - 09/11/2024 3:30 PM EDT Patient updated and voiced understanding. Caitlyn Garcia LPN * Telephone Encounter - Caitlyn Garcia LPN - 09/11/2024 3:27 PM EDT ----- Message from Jasmyne Day MD sent at 09/11/2024 2:54 PM EDT ----- Xray of hip negative for fracture. documented in this encounterBarnesville Hospital04-28-2025 Telephone encounter Note * Telephone Encounter - Caitlyn Garcia LPN - 09/11/2024 3:27 PM EDT ----- Message from Jasmyne Day MD sent at 09/11/2024 2:54 PM EDT ----- Xray of hip negative for fracture. [facility]04-28-2025 History of Present illness Narrative* Lauryn Gonzalez RT(R) - 09/11/2024 12:40 PM EDT Radiology [...] PATIENT PRESENTS WITH AN IMPLANTABLE OR ATTACHED STERILE PREPARATION TECHNICIAN: No RADIOLOGY DEPARTMENT: General X-ray: Exam(s) Completed: Spine X-Ray(s): Lumbar AP / LAT / L5-S1 Pelvis X-Ray: Pelvis with Hip Right Skull X-Ray facial bones PERIPHERAL IV DATA: Not applicable SIGNED BY: RT Eloy(R) September 11, 2024 1:02 PM documented in this encounterBarnesville Hospital04-28-[address]25 [facility]04-28-2025 Instructions* Patient Instructions* Jasmyne Day MD [...] headinjury or severe pain. documented in this encounterBarnesville Hospital04-28-2025 NoteAultman Alliance [facility]04-28-2025 History of Present illness Narrative* Jasmyne Day MD - 09/11/2024 11:49 AM EDT 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 Patient presents with: Fall: 1 this week and 1 last week - reports unsure if the fall last week if she hit her head. Reports pain on left side of head. Back pain is from fall today. YUKO Merchant is a 64 year old female [...] lower back since. Described as constant sharp, [id number]/10, without radiation. 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 [facility]04-18-2025 Miscellaneous Notes* Telephone Encounter - Leyda Morfin LPN - 09/01/2024 10:07 AM EDT Left detailed message on identifiable voicemail. * Telephone Encounter - Juwan Land APRN.CNP - 09/01/2024 7:43 AM EDT Please let the patient know that her TSH was normal. Continue with current dose of levothyroxine. Juwan Land APRN.CNP documented in this encounterBarnesville Hospital04-18-2025 Telephone encounter Note * Telephone Encounter - Juwan Land APRN.CNP - 09/01/2024 7:43 AM EDT Please let the patient know that her TSH was normal. Continue with current dose of levothyroxine. Juwan Land APRN.CNP [facility]04-17-2025 NoteAultman Alliance [facility]04-17-2025 History of Present illness Narrative* Priyanka [...] her earsand having balance issues. 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, Masaoka [...] UNI/BI Tubal ligation LX PARTIAL COLECTOMY 12/23/2017 [facility] lap lysis of adhesions, left [...] Moderate Priyanka Smith MD documented in this encounterBarnesville Hospital04-17-2025 NoteAultman Alliance [facility]04-17-2025 History of Present illness Narrative* Latha Cuevas MD - 08/31/2024 9:53 AM EDT [facility] Follow up note Consulted by: Priyanka Smith MD 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: 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, 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 HPI: This is [...] of uterus Malnutrition of moderate degree ([facility]) 06/15/2018 Nephrolithiasis NSIP (nonspecific interstitial pneumonia) ([facility]) Obesity, Class I, BMI 30-34.9 E66.9 09/03/2017 Osteopenia Overactive bladder Primary osteoarthritis of first carpometacarpal joint of right hand 08/05/2017 Added automatically from request for surgery [id number] Rectal bleed 09/05/2014 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 (HCC) (E27.40) 2. senior care systemic 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 (Z79.52) Due to hx [...] Low Latha Cuevas MD Endocrinology Associate Staff [facility] Endocrinology and Metabolism [place] [phone] documented in this encounterBarnesville Hospital04-07-2025 History of Present illness Narrative* Tracey Fernando [...] PATIENT PRESENTS WITH AN IMPLANTABLE OR ATTACHED STERILE PREPARATION TECHNICIAN: No RADIOLOGY DEPARTMENT: Mammography PERIPHERAL IV DATA: Not applicable SIGNED BY: Marissa Levin August 21, 2024 9:35 AM documented in this encounterBarnesville Hospital04-07-2025 NoteAultman Alliance [facility]04-04-2025 Telephone encounter Note* Telephone Encounter - Maira Chen APRN.CNP - 08/18/2024 12:16 PM EDT Patient was contacted. No uti symptoms today Urine culture in process I will send the results to her when final Report to the ER with fever, chills, back pain Patient verbalized understanding [facility]04-04-2025 Miscellaneous Notes* Telephone Encounter - Maira Chen APRN.CNP - 08/18/2024 12:16 PM EDT Patient was contacted. No uti symptoms today Urine culture in process I will send the results to her when final Report to the ER with fever, chills, back pain Patient verbalized understanding documented in this encounterBarnesville Hospital03-31-2025 History of Present illness Narrative* Sarah Berg [...] PATIENT PRESENTS WITH AN IMPLANTABLE OR ATTACHED STERILE PREPARATION TECHNICIAN: No RADIOLOGY DEPARTMENT: Ultrasound PERIPHERAL IV DATA: Not applicable SIGNED BY: Sarah Berg RDMS August 14, 2024 2:19 PM documented in this encounterCleveland [id number] NoteAultman Alliance Community Hospital03-26-2025 NoteAultman [facility] Hospital03-26-2025 History of Present illness Narrative* Maira Chen APRN.DIRECTOR OF FIELD COORDINATION - 08/09/2024 2:17 PM EDT Eren Merchant [...] family history of urological cancer Non smoker 02/2024-[facility] s/p cystoscopy, ureteroscopy, bilateral laser lithotripsy with [...] of uterus Malnutrition of moderate degree ([facility]) 06/15/2018 Nephrolithiasis NSIP (nonspecific interstitial pneumonia) ([facility]) Obesity, Class I, BMI 30-34.9 E66.9 09/03/2017 Osteopenia Overactive bladder Primary osteoarthritis of first carpometacarpal joint of right hand 08/05/2017 Added automatically from request for surgery [id number] Rectal bleed 09/05/2014 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 Lemon PAST SURGICAL HISTORY OF 10/24/2009 Removed T9-L1, 2 rods and 8 screws, Dr Lemon PAST SURGICAL HISTORY OF 11/2018 Hysteroscopy with D&C and Polypectomy with Burroughs and [employer] Truclear device PICC LINE INSERT/CONSULT 07/11/2018 THYMECTOMY [...] bilateral stent placement and removal 02/2024 at [facility] -ct reviewed from 03/09 - US KIDNEY/BLADDER - UA DIP, URINE (POC) - BACTERIAL CULTURE, URINE 2. Nephrolithiasis - ICD9: 592.0, ICD10: N20.0 - US KIDNEY/BLADDER Patient is instructed to schedule a follow up as scheduled with Dr. Yang . Maira Chen APRN.DIRECTOR OF FIELD COORDINATION documented in this encounterBarnesville Hospital03-25-2025 Telephone encounter Note * Telephone Encounter - Tess Persaud MA - 08/08/2024 12:02 PM EDT See pt message with an update. Tess Persaud MA [facility]03-25-2025 Miscellaneous Notes* Telephone Encounter - Tess Persaud MA - 08/08/2024 12:02 PM EDT See pt message with an update. Tess Persaud MA documented in this encounterBarnesville Hospital03-25-2025 Miscellaneous Notes* Telephone Encounter - Abdulkadir Villalobos RN - 08/08/2024 11:51 AM EDT Kirsten Pts nurse [facility] called in and was asking if provider had ordered a bedside commode for the Pt. Itold I couldn't see where it was ordered. She states their BOOK RETAILER will order it, but she didn't want maria antonia putting in a duplicate order. documented in this encounterBarnesville Hospital03-25-2025 Telephone encounter Note * Telephone Encounter - Abdulkadir Villalobos RN - 08/08/2024 11:51 AM EDT Kirsten Pts nurse [facility] called in and was asking if provider had ordered a bedside commode for the Pt. Itold I couldn't see where it was ordered. She states their BOOK RETAILER will order it, but she didn't want maria antonia putting in a duplicate order. [facility]03-24-2025 Telephone encounter Note* Telephone Encounter - Kirk Santiago - 08/07/2024 8:45 AM EDT 08/07/24 Patient has been scheduled w/ for 02/08/25. Kirk Santiago [facility]03-24-2025 Miscellaneous Notes* Telephone Encounter - Kirk Santiago - 08/07/2024 8:45 AM EDT 08/07/24 Patient has been scheduled w/ for 02/08/25. Kirk Santiago documented in this encounterBarnesville Hospital03-21-2025 History of Present illness Narrative* German Grubbs, DUST BOX TENDER.DIRECTOR OF FIELD COORDINATION - 08/04/2024 2:30 PM EDT Images from [...] Total Time Spent: 15 minutes German Grubbs APRN.CNP documented in this encounterBarnesville Hospital03-21-2025 NoteHNO ID: [id number] Author: GERMAN GRUBBS APRN.CNP Service: ? Author Type: Nurse Practitioner [...] Total Time Spent: 15 minutes German Grubbs APRN.[facility]03-20-2025 Instructions* Patient Instructions* Bogdan Roberts MD - [...] or you can send a message through [email or web address]. You can also now schedule and select appointments through [email or web address]. Bogdan Roberts MD documented in this encounterBarnesville Hospital03-20-2025 NoteAultman [facility]03-20-2025 History of Present illness Narrative* Bogdan Roberts MD - 08/03/2024 10:38 AM EDT [facility] - FOLLOW UP EVALUATION The patient consented to the use of ambient AI software for draft documentation of the visit consistent with [facility] s Notice of Privacy Practices. Priyanka Smith MD [address] [facility] [address] Dear Priyanka Smith MD: I had the [...] rigidity, and dyskinesia, including involuntary tongue movements. Shedoes not currently notice these movements, though her [...] 31%. She continues regular follow-ups with her billing manager and frequent blood work. She reports stiffness [...] tardive dyskinesia Stage 3b chronic kidney disease ([facility]) Plan 08/03/2024 Visit: # Parkinsonism, unspecified Parkinsonism [...] Sincerely, Bogdan Roberts MD documented in this encounterBarnesville Hospital03-17-2025 Instructions* Patient Instructions* Juwan Land APRN.DIRECTOR OF FIELD COORDINATION - 07/31/2024 11:19 AM EDT We discussed [...] been sent to your preferred pharmacy[facility]. - You may continue taking Tylenol as [...] office for further evaluation. documented in this encounterBarnesville Hospital03-17-2025 History of Present illness Narrative* Juwan Land [...] on Florinef, which was discontinued by her billing manager, Dr. Steve, due to episodes of elevated [...] improving. This note was partly generated using Browsteron voice recognition dictation and may contain some misspelled or inaccurate words missed on review. The patient consented to the use of Verifico software for draft documentation of the visit consistent with [facility] Notice of Privacy Practices. documented in this encounterBarnesville Hospital03-17-2025 NoteAultman [facility]03-17-2025 Telephone encounter Note* Telephone Encounter - [...] rash, fever, numbness, weakness Protocols used: Arm [id number]-XC [facility]03-17-2025 Miscellaneous Notes* Telephone Encounter - Nelli Ricardo [...] rash, fever, numbness, weakness Protocols used: Arm [id number]-US documented in this encounterBarnesville Hospital02-24-2025 Instructions* Patient Instructions* Jacqueline Valadez APRN.CNP - 07/10/2024 10:07 AM EST Get fasting labs completed by September 23 Continue to take all medication as prescribed Keep scheduled appointments with specialists Continue to eat a well balanced diet and stay hydrated Mammogram due this year Message the office when ready to labs documented in this encounterBarnesville Hospital02-24-2025 History of Present illness Narrative* Jacqueline Valadez [...] of the patient in the medical record. Maintenance Clerk Pulmonology Endocrinology Medical/Family history review Reviewed and [...] this time, has appt this summer. 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 Jacqueline Valadez APRN.DIRECTOR OF FIELD COORDINATION This note was partially generated using Instapio voice recognition system. Note was reviewed for accuracy. There may be minor misspellings or grammar miscues with Instapio voice recognition. documented in this encounterBarnesville Hospital02-24-[address]25 [facility]02-21-2025 Evaluation note* Diagnosis Onset Date Resolution Status Admit Date Candidiasis of esophagus acute July 07, 2024 9:16am [facility] Work Phone: 1(228) 438-168602-10-2025 NoteAultman Alliance Community Hospital02-10-2025 History of Present illness Narrative* Raul Juan MD - 06/26/2024 8:54 AM EST Raul Juan MD Department of Orthopaedics Orthopaedics [address] [facility] [address] Dept: [phone] Dept June 26, 2024 CHIEF COMPLAINT: New [...] joint spaces are preserved. No osseous erosion. 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 Lemon PAST SURGICAL HISTORY OF 10/24/2009 Removed T9-L1, 2 rods and 8 screws, Dr Lemon PAST SURGICAL HISTORY OF 11/2018 Hysteroscopy with D&C and Polypectomy with Burroughs and NephUlympix Truclear device PICC LINE INSERT/CONSULT 07/11/2018 THYMECTOMY [...] anxiety) Raul Juan MD documented in this encounterBarnesville Hospital02-04-2025 Telephone encounter Note * Telephone Encounter - Juwan Land APRN.CNP - 06/20/2024 2:31 PM EST The following approved medication requests have been transmitted electronically. Requested Prescriptions Pending Prescriptions Disp Refills levothyroxine (SYNTHROID) 100 mcg tablet 90 tablet 3 Sig: Take 1 tablet by mouth once daily. Take on empty stomach Juwan Land APRN.CNP [facility]02-04-2025 Miscellaneous Notes* Telephone Encounter - Juwan Land [...] 20, 2024 2:09 PM documented in this encounterBarnesville Hospital02-04-2025 Telephone encounter Note * Telephone Encounter - [...] Morfin LPN June 20, 2024 2:09 PM [facility]02-04-2025 History of Present illness Narrative* Magdi, Becca Herrera APRN.DIRECTOR OF FIELD COORDINATION - 06/20/2024 9:00 AM EST Images from [...] EGD on 06/[address] Cota at [facility], stable findings. 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 aspirin, enteric coated 81 mg EC tablet [...] Moderate air trapping. 3. Small hiatal hernia. Shipping Services Sales Representative: JUAN Transcribe Date/Time: Jun 14 2024 12:54P Dictated by : CATIA RAMOS MD This examination was interpreted and the report reviewed and electronically signed by: CATIA RAMOS MD on Jun 14 2024 12:58PM EST Results-Findings * * *Final Report* * * DATE OF EXAM: Jun 12 2024 11:43AM [facility] 0541 - CT CHEST WO IVCON [...] ASSESSMENT/PLAN: 1. NSIP (nonspecific interstitial pneumonitis) ([facility]) - ICD9: 516.8, ICD10: J84.89 (primary diagnosis) [...] chest CT unless patient changes clinically. 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 CKD stage 3b, GFR 30-44 ml/min ([facility]) - ICD9: 585.3, ICD10: N18.32 - eGFR: 31 Stable - Follows with nephrology at [facility], Dr. Steve F/u scheduled in October, will add PFT Portions of this documentation were copied and pasted from previous office visit notes in order to provide a cohesive continuity of the history. The note has been reviewed and edited and updated as necessary. Becca Mir APRN.SAMIR I spent a total of 25 minutes on the date of the service which included preparing to see the patient, rruh-jc-cldi patient care, completing clinical documentation, performing a medically appropriate examination, counseling and educating the patient/family/caregiver, and ordering medications, tests,or procedures. documented in this encounterBarnesville Hospital02-04-2025 NoteA[facility]01-27-[facility] History of Present illness Narrative* Cara [...] PATIENT PRESENTS WITH AN IMPLANTABLE OR ATTACHED STERILE PREPARATION TECHNICIAN: No RADIOLOGY DEPARTMENT: CT; Exam(s) Completed: Chest PERIPHERAL IV DATA: Not applicable SIGNED BY: RT Jonathon(R) June 12, 2024 2:08 PM documented in this encounterBarnesville Hospital01-27-[address]25 [facility]01-24-2025 NoteA[facility]01-24-2025 History of Present illness Narrative* Wiley [...] which included preparing to see the patient, kqbm-ru-ybgv patient care, completing clinical documentation, obtaining and/or reviewing separately obtained history, and counseling and educating the patient/family/caregiver. documented in this encounterBarnesville Hospital01-21-2025 [facility] Medical Records Department [address] [place] [address] History Physical Exam 06/06/24 1515 MR#: [id number] Acct: [id number] Name: EREN MERCHANT Rep #: [id number] : 1960 64 From: Aditya Friend PCP: Dr. Priyanka Smith MD Status:[facility] Location: [place] [address] HPI - General General Date of Admission: 06/06/24 Date of Service: 06/06/24 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: Brad esophagitis HPI Narrative EREN MERCHANT, is a 64 F who presents 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: brad esophagititis Details: EREN MERCHANT, is a 64 F who presents to the office today for establishment. She has a PMHx of CKD, hypothyroidism, overactive bladder, thymoma present w/ bilateral hydronephrosis, diverticulitis s/p two bowel resections. Pt was hospitalized 03.04.24 [facility]. She was found to have a UTI [...] mcg (1,000 unit) tablet (Vitamin D3) geriatric twaairzu-myoc-ugjj 1 ea PO DAILY 06/28/18 06/05/24 History [...] Date / Time cetirizine (From yrte) Allergy Intermediate Rash Verified 06/06/24 14:34 erythromycin [...] fecal incontinence, heartburn, hematemesi (more content not included)...[facility]01-15-2025 Telephone encounter Note* Telephone Encounter - Jacqueline Valadez APRN.CNP - 05/31/2024 11:11 AM EST Noted, thank you. Jacqueline Valadez APRN.CNP [facility] Work Phone: [phone]) 565-779001-15-2025 Miscellaneous Notes* Telephone Encounter - Jacqueline Valadez [...] LPN * Telephone Encounter - Jacqueline Valadez APRN.SAMIR - [...] has any questions. Thank you. Jacqueline Valadez APRN.SAMIR documented in this encounterBarnesville Hospital01-15-2025 Telephone encounter Note * Telephone Encounter - Mariam Woods LPN - 05/31/2024 10:31 AM EST Patient notified of results, verbalizes understanding of instructions. Pt stated the Tylenol Arthritis helps during the day. She also has an appt with Ortho this month. Mariam Woods LPN [facility]01-15-2025 Telephone encounter Note* Telephone Encounter - Jacqueline [...] any questions. Thank you. Jacqueline Valadez APRN.CNP [facility]01-14-2025 Instructions* Patient Instructions* Gemma Roberts APRN.CNP - 05/30/2024 8:26 AM EST It was [...] or you can send a message through [email or web address]. You can also now schedule and select appointments through [email or web address]. Gemma Roberts APRN.CNP documented in this encounterBarnesville Hospital01-14-2025 History of Present illness Narrative* Gemma Roberts APRN.CNP - 05/30/2024 8:00 AM EST [facility] - FOLLOW UP EVALUATION Primary Neurologist: Bogdan Roberts MD Primary RUSSELL: SAMIR Madrigal MD [address] [facility] [address] Dear Pryianka Smith MD: I had the pleasure of seeing Ms. Merchant for follow-up today. As you know she is a 64 year old right-handed female with a history of tremor since 2021. She is seen with her significant other, Mcihael. Subjective Previous Plan-03/16/2024 Visit: Parkinsonism/Tremor: Continue monitoring I am ordering a skin biopsy to hopefully differentiate whether this is Parkinson's disease or drug induced parkinsonism Exercise as able Tardive dyskinesia: Continue to monitor Other: Please call and follow up with your chief gauger regarding your prednisone being stopped while in [...] Compared to Last Filed Total (!) 62.5 Anfj-Ixchts-Jlpmn Tremor Scale Medication OFF/ON Time of Assessment [...] Schedule: Medications None Level of service : 89843 (20-29 min). Time spent 26 min on the day of service, which included preparing to see the patient, fpsb-zx-arxz patient care, completing clinical documentation, obtaining and/or reviewing separately obtained history, performing a medically appropriate examination, and counseling and educating the patient/family/caregiver. Gemma Roberts APRN.DIRECTOR OF FIELD COORDINATION documented in this encounterBarnesville Hospital01-14-2025 NoteA[facility]01-08-2025 History of Present illness Narrative* Sakshi Suazo RT(R) - 05/24/2024 10:10 AM EST Radiology [...] PATIENT PRESENTS WITH AN IMPLANTABLE OR ATTACHED STERILE PREPARATION TECHNICIAN: No RADIOLOGY DEPARTMENT: General X-ray: Exam(s) Completed: Lower Extremity X- Ray(s): Knee, AP / Lat / Tunne / Merchant Bilateral and Wt. Bearing PERIPHERAL IV DATA: Not applicable SIGNED BY: RT Cinthya(R) May 24, 2024 10:10 AM documented in this encounterBarnesville Hospital01-08-2025 NoteA[facility]01-08-2025 Instructions* Patient Instructions* Jacqueline Valadez APRN.CNP - 05/24/2024 8:30 AM EST Get knee xray completed Continue to use Tylenol as needed for pain May elevate and apply ice as needed. May consider Voltaren gel in the future. Keep up coming appt with Orthopedics. 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 Lemon PAST SURGICAL HISTORY OF 10/24/2009 Removed T9-L1, 2 rods and 8 screws, Dr Lemon PAST SURGICAL HISTORY OF 11/2018 Hysteroscopy with D&C and Polypectomy with Burroughs and NephUlympix Truclear device PICC LINE INSERT/CONSULT 07/11/2018 THYMECTOMY [...] APRN.SAMIR This note was partially generated using [employer] voice recognition system. Note was reviewed for accuracy. There may be minor misspellings or grammar miscues with [employer] voice recognition. documented in this encounterBarnesville Hospital01-08-2025 NoteA[facility]01-07-2025 Telephone encounter Note* Telephone Encounter - Lala Ruiz APRN.CNP - 05/23/2024 12:15 PM EST Pt scheduled for VV with Dr. Benitez 05/24/24 The following approved medication requests have been transmitted electronically. Requested Prescriptions Signed Prescriptions Disp Refills amitriptyline (ELAVIL) 75 mg tablet 90 tablet 1 Sig: Take 1 tablet by mouth daily at bedtime. Pharmacy Information Pharmacy Address Telephone [facility] [address] [place] [address] Lala Ruiz APRN.CNP May 23, 2024 12:15 PM [facility]01-07-2025 Miscellaneous Notes* Telephone Encounter - Lala Ruiz APRN.CNP - 05/23/2024 12:15 PM EST Pt scheduled for VV with Dr. Benitez 05/24/24 The following approved medication requests have been transmitted electronically. Requested Prescriptions Signed Prescriptions Disp Refills amitriptyline (ELAVIL) 75 mg tablet 90 tablet 1 Sig: Take 1 tablet by mouth daily at bedtime. Pharmacy Information Pharmacy Address Telephone [facility] [address] [place] [address] Lala Ruiz APRN.CNP May 23, 2024 12:15 [...] to 50-75mg on 01/10; had to stop 10/18given hydro, stones, falls etc - Also discussed [...] in person or televisit documented in this encounterBarnesville Hospital01-07-2025 Telephone encounter Note * Telephone Encounter - [...] up 6-8 weeks in person or televisit [facility]01-06-2025 Telephone encounter Note* Telephone Encounter - Joy Arvizu LPN - 05/22/2024 10:02 AM EST AMAN: 04/17/24 Patient phones requesting refills as follows: Requested Prescriptions Pending Prescriptions Disp Refills mycophenolate Mofetil (CELLCEPT) 500 mg tablet 270 tablet 3 Sig: Take 2 in am and one in pm Please review and advise. Joy Arvizu LPN [facility]01-06-2025 Miscellaneous Notes* Telephone Encounter - Joy Arvizu LPN - 05/22/2024 10:02 AM EST AMAN: 04/17/24 Patient phones requesting refills as follows: Requested Prescriptions Pending Prescriptions Disp Refills mycophenolate Mofetil (CELLCEPT) 500 mg tablet 270 tablet 3 Sig: Take 2 in am and one in pm Please review and advise. Joy Arvizu LPN documented in this encounterBarnesville Hospital01-02-2025 Instructions* Patient Instructions* Latha Cuevas MD - 05/18/2024 11:55 AM EST Please do the test on fasting- take about 1.5 to 2 hrs documented in this encounterBarnesville Hospital01-02-[address]25 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 HPI: This is [...] 06/15/2018 Nephrolithiasis NSIP (nonspecific interstitial pneumonia) ([facility]) Obesity, Class I, BMI 30-34.9 E66.9 09/03/2017 Osteopenia Overactive bladder Primary osteoarthritis of first carpometacarpal joint of right hand 08/05/2017 Added automatically from request for surgery [id number] Rectal bleed 09/05/2014 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 Lemon PAST SURGICAL HISTORY OF 10/24/2009 Removed T9-L1, 2 rods and 8 screws, Dr Lemon PAST SURGICAL HISTORY OF 11/2018 Hysteroscopy with D&C and Polypectomy with Burroughs and NephUlympix Truclear device PICC LINE INSERT/CONSULT 07/11/2018 THYMECTOMY [...] with concerns for possible AI due to intermediate teacher steroid therapy PLAN: 1. 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 (HCC) (E27.40) 2. 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 Endocrinology and Metabolism [place] [phone] documented in this encounterBarnesville Hospital12-20-2024 Instructions* Patient Instructions* Latha Cuevas MD - 05/05/2024 8:38 AM EST Please do labs on fasting at 8 am Hold the supplements for about 3 to 5 days before labs are drawn documented in this encounterBarnesville Hospital12-20-2024 NoteA[facility]12-20-2024 History of Present illness Narrative* Latha Cuevas MD - 05/05/2024 8:28 AM EST [facility] Initial Clinic Visit Note Consulted by: Priyanka Smith MD 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: 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, fdc use of systemic steroids HPI: This is [...] of uterus Malnutrition of moderate degree ([facility]) 06/15/2018 Nephrolithiasis NSIP (nonspecific interstitial pneumonia) ([facility]) Obesity, Class I, BMI 30-34.9 E66.9 09/03/2017 Osteopenia Overactive bladder Primary osteoarthritis of first carpometacarpal joint of right hand 08/05/2017 Added automatically from request for surgery [id number] Rectal bleed 09/05/2014 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 Lemon PAST SURGICAL HISTORY OF 10/24/2009 Removed T9-L1, 2 rods and 8 screws, Dr Lemon PAST SURGICAL HISTORY OF 11/2018 Hysteroscopy with D&C and Polypectomy with Burroughs and NephUlympix Truclear device PICC LINE INSERT/CONSULT 07/11/2018 THYMECTOMY [...] with concerns for possible AI due to fdc steroid therapy PLAN: 1. 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inology [facility] Metabolism [place] [phone] documented in this encounterBarnesville Hospital12-02-2024 Instructions* Patient Instructions* Wiley Benitez MD - [...] doing with this medication. documented in this encounterBarnesville Hospital12-02-2024 NoteAult[facility]12-02-2024 History of Present illness Narrative* Wiley [...] recommendation and said she would go to [place] [facility]. History since last visit: Was admitted [...] which included preparing to see the patient, pmgs-on-cdod patient care, completing clinical documentation, obtaining and/or reviewing separately obtained history, and counseling and educating the patient/family/caregiver. documented in this encounterBarnesville Hospital12-02-2024 History of Present illness Narrative* Karen Alcantara MD - 04/17/2024 9:30 AM EST Images from the original note were not included. . Res[facility] [place] Note Patient name: Eren Merchant PCP: Priyanka [...] CellCept. Required increase in her CellCept dose [id number] mg a day after surveillance CT showed new groundglass opacities. She has been maintained on 5 m g of prednisone. She opted not continue to follow with the [facility] clinic on a regular basis due to difficulty traveling the distance. Since her last office visit she was admitted to local hospital and then transferred to [facility] when she presented with syncope. Discovered [...] cough. 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 Karen Alcantara MD [facility] [place] documented in this encounterBarnesville Hospital12-02-2024 NoteA[facility]11-29-2024 Telephone encounter Note* Telephone Encounter - Pili Olson MA - 04/14/2024 8:45 AM EST Patient notified and voiced understanding. Pili Olson MA [facility]11-29-2024 Miscellaneous Notes* Telephone Encounter - Pili Olson MA - 04/14/2024 8:45 AM EST Patient notified and voiced understanding. Pili Olson MA * Telephone Encounter - Jonathan Monterroso APRN.CNP - 04/14/2024 8:00 AM EST Please let patient know her culture shows E coli infection that is not responsive to the antibiotics I gave her. I have sent in a new prescription. documented in this encounterBarnesville Hospital11-29-2024 Telephone encounter Note * Telephone Encounter - Jonathan Monterroso APRN.CNP - 04/14/2024 8:00 AM EST Please let patient know her culture shows E coli infection that is not responsive to the antibiotics I gave her. I have sent in a new prescription. 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, Masaoka [...] UNI/BI Tubal ligation LX PARTIAL COLECTOMY 12/23/2017 [facility] lap lysis of adhesions, left [...] 08/24/2019 Mammogram Screening due on 08/17/2024 Covid-19 Vaccine(2023- season) due on 05/11/2024 Depression Screening due [...] N39.0, R31.9 acute - UA positive for loren esterase, hematuria, and proteinuria - Send urine for culture - Begin treatment with Bactrim DS BID for 3 days - Patient education for prevention given - SULFAMETHOXAZOLE 400 MG-TRIMETHOPRIM 80 MG TABLET - UA DIP, URINE (POC) - URINE CULTURE Jonathan Monterroso APRN.DIRECTOR OF FIELD COORDINATION documented in this encounterBarnesville Hospital11-25-2024 Telephone encounter Note * Telephone Encounter - Dee Sanchez RN - 04/10/2024 12:50 PM EST Patient calling to say she saw Dr. Steve Nephrology @ [place]. He let patient know he was faxing UA results to PCP office so patient can be treated for UTI. Those results are in EPIC. UA was done on 04/05/24. Patient states she has had symptoms of burning with urination and urgency x 4 dayssince having stent removed on 04/06/24. Advised patient probably needs appointment. Scheduled with Jonathan Monterroso BOOK RETAILER due to no appointments available in [facility]. Dee Sanchez RN [facility]11-25-2024 Miscellaneous Notes* Telephone Encounter - Dee Sanchez RN - 04/10/2024 12:50 PM EST Patient calling to say she saw Dr. Steve Nephrology @ [place]. He let patient know he was faxing [...] NP due to no appointments available in [facility]. Dee Sanchez RN documented in this encounterBarnesville Hospital11-22-2024 History of Present illness Narrative* Phong Blake MD - 04/07/2024 9:20 AM EST Cystoscopy and stent removal Procedure Note Pre-operative Diagnosis: Ureteral calculus Post-operative Diagnosis: Ureteral calculus Procedure Details The risks, benefits, complications, treatment options, and expected outcomes were discussed with the patient. The patient concurred with the proposed plan, giving informed consent. A female medical reimbursement manager was present for the entire procedure. A [...] fluid intake. Followup with usual urologist at [facility] M[facility] 04/07/2024 Lives in [facility]). Interstim, IC 04/07/2024: Stent removal 03/23/2024: Bilateral ULL (R. Lower pole - no stent ; L. Ureter - stent placed) 03/05/2024: CT: Bilateral hydro. 5 mm. L. UVJ stone 03/03/2024: Urology ([facility]): - Pt is s/p mirabegron, oxybutynin, interstim, [...] (Dr. Steve, C.F. Nephrology) documented in this [facility]11-22-2024 NoteCystoscopy and stent removal Procedure Note Pre-operative Diagnosis: Ureteral calculus Post-operative Diagnosis: Ureteral calculus Procedure Details The risks, benefits, complications, treatment options, and expected outcomes were discussed with the patient. The patient concurred with the proposed plan, giving informed consent. A female medical reimbursement manager was present for the entire procedure. A [...] fluid intake. Followup with usual urologist at [facility] Phong Blake M.D. 04/07/2024 Lives in [facility]). Interstim, IC 04/07/2024: Stent removal 03/23/2024: Bilateral ULL (R. Lower pole - no stent ; L. Ureter - stent placed) 03/05/2024: CT: Bilateral hydro. 5 mm. L. UVJ stone 03/03/2024: Urology ([facility]): - Pt is s/p mirabegron, oxybutynin, interstim, [...] 2.05 / eGFR 26 (Dr. Steve, C.F. Nephrology)[facility]11-18-2024 Telephone encounter Note* Telephone Encounter - Viri Cole - 04/03/2024 12:37 PM EST Name of caller: Eren Contact phone number: [phone] Relationship to Patient: patient Provider: Dr. Kayli Velasquez Practice: Neurology 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/Reason for Call: Patient is requesting ED notes and testing from 03/04/24 and 03/06/24 to be faxed to her neurologist at [phone]. Please advise. Best time of day caller can be reached: Any Patient advised that office/PCP has 24-48 business hours to return their call: Yes [id number] Miscellaneous Notes* Telephone Encounter - Viri Cole - 04/03/2024 12:37 PM EST Name of caller: Eren Contact phone number: [phone] Relationship to Patient: patient Provider: Dr. Kayli Velasquez Practice: Neurology 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/Reason for Call: Patient is requesting ED notes and testing from 03/04/24 and 03/06/24 to be faxed to her neurologist at [phone]. Please advise. Best time of day caller can be reached: Any Patient advised that office/PCP has 24-48 business hours to return their call: Yes documented in this [facility]11-11-2024 Telephone encounter Note* Telephone Encounter - Geri Lewis MA - 03/27/2024 1:09 PM EST Spoke with Pt - Pt requests [facility]. Pt appt rescheduled to 04.07.24 @0920 [facility] with Dr. Blake. Pt aware of appt d/t/l. [id number] Miscellaneous Notes* Telephone Encounter - Geri Lewis MA - 03/27/2024 1:09 PM EST Spoke with Pt - Pt requests [facility]. Pt appt rescheduled to 04.07.24 @0920 [facility] with Dr. Blake. Pt aware of appt d/t/l. * Telephone Encounter - Carlos Thorpe - 03/27/2024 12:32 PM EST Patient retuning call and states she was offered [place] location on the . Please call to [...] N/A Medication Name: N/A documented in this encounterSWayne HealthCare Main CampusCkynck18-61-8962 Telephone encounter Note* Telephone Encounter - Carlos Hernandezi - 03/27/2024 12:32 PM EST Patient retuning call and states she was offered [place] location on the . Please call to reschedule. [facility]Cadvsb38-07-1678 Telephone encounter Note* Telephone Encounter - Jacqueline Deshpandelton - 03/24/2024 2:14 PM EST Name of Caller: Eren Contact Reason for Appointment: Patient called to verify procedure appointment. Patient asked if there was a closer off to where she lives. Please call patient back to advise. Office Name: Urology Medication Refills need, if any: N/A Medication Name: N/A [id number] NotePatient: Eren Merchant Procedure Summary Date: 03/23/24 Room / Location: [address] Operating Room Anesthesia Start: 1449 Anesthesia [...] Allowed opportunity for questions and acknowledgement of understanding.[facility]11-08-2024 NotePatient: Eren Merchant Procedure Summary Date: 03/23/24 Room / Location: [facility] Operating Room Anesthesia Start: 1449 Anesthesia Stop: [...] discharged once all PACU criteria has been met.[facility]11-07-2024 Hospital Discharge instructions* Discharge Instructions* Katherine Bowen [...] either at your pre- operative day at [facility], [facility], or with your regular doctor. - Some [...] Care Everywhere. * Ureteral Stent Discharge Instructions (Colombian) documented in this [facility]11-07-2024 Miscellaneous Notes* Perioperative Nursing Note - [...] Diagnostic ureteroscopy was performed using the 6.9 Sierra Leonean semirigid ureteroscope. The scope was advanced along [...] EST PRE-PROCEDURE ROUNDING COMPLETE. documented in this [facility]11-07-2024 Note* Perioperative Nursing Note - Renea [...] into her clothes while up to bathroom. [address]07-2024 Note* Perioperative Nursing Note - Renea Leyva [...] into her clothes while up to bathroom. [address]07-2024 Note* Perioperative Nursing Note - Renea Leyva RN - 03/23/2024 4:34 PM EST Took over care of patient for RN lunch break. Patient just placed on bed mcgraw per RN. [address]07-2024 Note* Perioperative Nursing Note - Renea Leyva RN - 03/23/2024 4:34 PM EST Took over care of patient for RN lunch break. Patient just placed on bed mcgraw per RN. [address]07-2024 NoteAirway Date/Time: 03/23/2024 2:55 PM Urgency: scheduled Airway not difficult General Information and Staff Patient location during procedure: Procedural Resident/HAT BLOCKING MACHINE OPERATOR: Casi Burroughs APRN - HAT BLOCKING MACHINE OPERATOR Performed: HAT BLOCKING MACHINE OPERATOR Indications and Patient Condition Indications for [...] (cm): 21 Number of attempts at approach: [address] [place], [place] [address]11-07-2024 Note* Op Note - Katherine Bowen MD [...] Diagnostic ureteroscopy was performed using the 6.9 Sierra Leonean semirigid ureteroscope. The scope was advanced along [...] anesthesia. Katherine Bowen MD 03/23/24 5:20 PM [id number] Note* Op Note - Katherine Bowen MD [...] Diagnostic ureteroscopy was performed using the 6.9 Sierra Leonean semirigid ureteroscope. The scope was advanced along [...] anesthesia. Katherine Bowen MD 03/23/24 5:20 PM [id number] Note* Perioperative Nursing Note - Kyrie Moreno RN - 03/23/2024 2:43 PM EST PRE-PROCEDURE ROUNDING COMPLETE. [id number] Note* Perioperative Nursing Note - Kyrie Moreno RN - 03/23/2024 2:43 PM EST PRE-PROCEDURE ROUNDING COMPLETE. [id number] NotePRE-PROCEDURE ROUNDING COMPLETE.[facility]11-07-2024 Attending History and physical note* Katherine Bowen [...] for Admission: Eren Henry, 1960 is at [facility] ED. Pt has been in ED at [place] for pyelonephritis with possible neoplastic process. Hospitalist at [place] unable to care for pt at [place]. Pt cannot have contrast due to MANJIT (creat 3.1). [place] reached out to [facility] yesterday but still don't have a bed. Dr Jaguar Mckeon spoke with Dr. Noel Contreras here at [facility] and pt accepted to [facility] by Dr Contreras. History Obtained From: [...] day of admission. Ultimately pt presented to [facility] for chief complaint of seizure-like activity. Reported [...] cystitis. Given concern for malignancy, urology at [place] ED recommended transfer and medical admission for further workup. Prior to her transfer, ED started pt on fludrocortisone 0.1mg PO BID. Upon assessment at [facility], pt reiterated much of what was [...] Resource Strain: High Risk (03/26/2020) Received from [facility] Overall Financial Resource Strain (CARDIA) Difficulty of Paying Living Expenses: Very hard Food Insecurity: No Food Insecurity (03/26/2020) Received from [facility] Hunger Vital Sign Worried About Running Out of Food in the Last Year: Never true Ran Out of Food in the Last Year: Never true Transportation Needs: No Transportation Needs (03/26/2020) Received from [facility] PRAPARE - Transportation Lack of Transportation (Medical): No Lack of Transportation (Non-Medical): No Physical Activity: Inactive (06/22/2023) Received from [facility] Exercise Vital Sign Days of Exercise per Week: 0 days Minutes of Exercise per Session: 0 min Stress: No Stress Concern Present (09/03/2019) Received from [facility] [employer] - Occupational Stress Questionnaire Feeling of Stress : Not at all Social Connections: Unknown (03/01/2020) Received from [facility] Social Connection and Isolation Panel [NHANES] Frequency of Communication with Friends and Family: Three times a week Frequency of Social Gatherings with Friends and Family: Three times a week Attends Anglican Services: Not on file Active Member of [...] notes. -On admission, pt was discussed with [facility] urology whom recommended repeat imaging if [...] Shelton Merchant Mobile Relation: Son Preferred language: Colombian Venture Capitalist needed? No Secondary Emergency Contact: Michael Merchant Mobile Relation: Significant Other Preferred language: Colombian Venture Capitalist needed? No ADVANCED CARE PLANNING Eren Herrera Shonda : 1960 Primary Care Physician: Priyanka Smith The patient and/or family/surrogate voluntarily agreed to participate in ACP services. Patient s cognitive capacity: AOX4 Code Status: [X] [FULL CODE - Continue all advanced life support: CPR,intubation,invasive procedures] [_] [DNR-CCA - DO NOT do CPR, intubation] [_] [DNR-HONEY PROCESSOR - Comfort care only] [_] DNR form [was/was not] signed Maurilio Groves MD Division of Hospitalist Medicine [facility] XGIMI Phone: 1(497) 612-926211-07-2024 History and physical note* Katherine Bowen MD [...] COMPLAINT: OSH transfer Reason for Admission: Eren Henry 1960 is at [facility] ED. Pt has been in ED at [place] for pyelonephritis with possible neoplastic process. Hospitalist at [place] unable to care for pt at [place]. Pt cannot have contrast due to MANJIT (creat 3.1). [place] reached out to [facility] yesterday but still don't have a bed. Dr Jaguar Mckeon spoke with Dr. Noel Contreras here at [facility] and pt accepted to [facility] by Dr Contreras. History Obtained From: [...] day of admission. Ultimately pt presented to [facility] for chief complaint of seizure-like activity. Reported [...] cystitis. Given concern for malignancy, urology at [place] ED recommended transfer and medical admission for further workup. Prior to her transfer, ED started pt on fludrocortisone 0.1mg PO BID. Upon assessment at [facility], pt reiterated much of what was [...] Resource Strain: High Risk (03/26/2020) Received from [facility] Overall Financial Resource Strain (CARDIA) Difficulty of Paying Living Expenses: Very hard Food Insecurity: No Food Insecurity (03/26/2020) Received from [facility] Hunger Vital Sign Worried About Running Out of Food in the Last Year: Never true Ran Out of Food in the Last Year: Never true Transportation Needs: No Transportation Needs (03/26/2020) Received from [facility] PRAPARE - Transportation Lack of Transportation (Medical): No Lack of Transportation (Non-Medical): No Physical Activity: Inactive (06/22/2023) Received from [facility] Exercise Vital Sign Days of Exercise per Week: 0 days Minutes of Exercise per Session: 0 min Stress: No Stress Concern Present (09/03/2019) Received from [facility] [employer] - Occupational Stress Questionnaire Feeling of Stress : Not at all Social Connections: Unknown (03/01/2020) Received from [facility] Social Connection and Isolation Panel [NHANES] Frequency of Communication with Friends and Family: Three times a week Frequency of Social Gatherings with Friends and Family: Three times a week Attends Anglican Services: Not on file Active Member of [...] notes. -On admission, pt was discussed with [facility] urology whom recommended repeat imaging if [...] Contact: ShondaShelton Mobile Relation: Son Preferred language: Colombian Venture Capitalist needed? No Secondary Emergency Contact: ShondaMichael Mobile Relation: Significant Other Preferred language: Colombian Venture Capitalist needed? No ADVANCED CARE PLANNING Eren Herrera Shonda : 1960 Primary Care Physician: Priyanka Smith The patient and/or family/surrogate voluntarily agreed to participate in ACP services. Patient s cognitive capacity: AOX4 Code Status: [X] [FULL CODE - Continue all advanced life support: CPR,intubation,invasive procedures] [_] [DNR-CCA - DO NOT do CPR, intubation] [_] [DNR-HONEY PROCESSOR - Comfort care only] [_] DNR form [was/was not] signed Maurilio Groves MD Division of Hospitalist Medicine [facility] documented in this [facility]11-07-2024 NoteH&P Update Patient's History and Physical from 03/04/24 was reviewed. Patient examined. There has been no change. Impression: ureteral calculus Plan: : cystoscopy pyelogram ureteroscopy laser lithotripsy stent placement bilateral : Electronically signed by Katherine Bowen MD 03/23/24 2:32 [facility]11-07-2024 Telephone encounter Note* Telephone Encounter - Jessika De Jesus - 03/23/2024 11:20 AM EST 1st attempt left message to return call to arrange consult to Endo [facility]11-07-2024 Miscellaneous Notes* Telephone Encounter - Jessika De [...] them know. Please advise. documented in this encounterBarnesville Hospital11-07-2024 Telephone encounter Note * Telephone Encounter - Tess Persaud MA - 03/23/2024 10:28 AM EST Referral filed. Return call to Dr. Steve's office notifying them that PCP has placed referral. Routing chart to Scheduling to contact pt to help assist is in setting up appt with pt. Refer to Endo appt. Tess Persaud MA [facility]11-07-2024 Telephone encounter Note* Telephone Encounter - Priyanka Smith MD - 03/23/2024 10:18 AM EST OK for Endo referral as requested Priyanka Smith MD [facility]11-06-2024 NotePatient: Eren Merchant Procedure Information Date/Time: 03/23/24 1330 Procedures: CYSTOSCOPY AND PYELOGRAM (Urethra) - 60 MIN BILATERAL URETEROSCOPY, HOLMIUM LASER LITHOTRIPSY (Bilateral: Urethra) BILATERAL URETERAL STENT CHANGE (Bilateral: Urethra) Location: [address] Operating Room Surgeons: Katherine Bowen MD [...] 03/05/2024 5:08 PM Equipment Requests: Additional [facility]sUniversity [facility]11-06-2024 Telephone encounter Note* Telephone Encounter - Maren Boogie LPN - 03/22/2024 2:[address] Hansen's office Nephrology calling, they saw patient today. 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 If PCP does not want to they can we just need to let them know. Please advise. [facility]11-05-2024 Telephone encounter Note* Telephone Encounter - Carmita Avila - 03/21/2024 1:46 PM EST Benefit verification forms initiated via [employer] to be sent to [employer]. [facility]11-05-2024 Miscellaneous Notes* Telephone Encounter - Carmita Avila - 03/21/2024 1:46 PM EST Benefit verification forms initiated via [employer] to be sent to [employer]. documented in this encounterBarnesville Hospital10-31-2024 History of Present illness Narrative* Priyanka Smith MD - 03/16/2024 2:20 PM EDT 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 Patient presents with: Hospital F/U: HPI Eren Merchant is a 63 year old female who presents here today for Hospital Discharge Follow up.. She was talking on the phone and next thing she knew she was on the floor. She hit a rocking chair when she feel 10/13 and still has some pain to the right rib. She then had another episode while at the hospital causing her to have seizure like reactions. Sent to ER who sent her to [facility] due to kidney infection. Pt here for hospital follow up. Was admitted to [facility] on 03/04/24 through 03/09/24 for kidney infection and low BP. She didn't realize she had an infection, just had back pain. She has stents placed and will get those removed next week. She has been checking her BP at home and readings running 100/70 range. Has only had one episode of feeling light headed since keysha mason discharged home. She feels the stomach is doing ok but she is on medication. She is to get an endoscopy again in 8 weeks. She is following with gastro Dr. C[place]. Has appt with Maintenance Clerk. Has a few more appts to make. [...] recent episodes which prompted her transfer to [facility] for further workup. On 02/26/24, patient [...] office on 03/03/24. 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 Head trauma (no); 2. MASTER CHEF infections (no); 3. Family history of seizures (yes, brother); 4. Developmental delay (no); 5. Febrile seizures (no); 6. MASTER CHEF tumors (no); 7. MASTER CHEF vascular disease (no); 8. Significant medical history: CKD, ILD, current complicated UTI; 9. and early development: normal and early development Patient presented to [facility] and was found to be tachycardic. 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. As far as neurologic history: Patient [...] reassess for improvement in PD symptoms. Since Weds of this week per propranolol was stopped [...] doctor has moved and she has no sharepoint admin. Usually we ll treat for brad esophagitis empirically however with no recent EGD and concerning CT findings which is not available for review, needs further investigation. Her current acute issue is sepsis however, once her hemodynamics are improved, can perform an EGD to rule out any advanced lesion given the imaging findings. If negative, recommend she establishes with a local GI in [place] for ongoing care for dysmotility. 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 [...] Past Histories independently gathered by the clinical customer support coordinator and the remaining scribed note accurately describes [...] PM. Susana Bhardwaj MA documented in this encounterBarnesville Hospital10-31-2024 NoteAult[facility]10-31-2024 Telephone encounter Note* Telephone Encounter - Batool FamiliaKaleb Saelem - 03/16/2024 10:07 AM EDT Lvm for Pt letting her know if she still has questions to call our office. [facility]imaOkcpiz28-02-9660 Miscellaneous Notes* Telephone Encounter - Batool FamiliaKaleb Saleem - 03/16/2024 10:07 AM EDT Lvm for Pt letting her know if she still has questions to call our office. * Telephone Encounter - Elma Otoole - 03/15/2024 1:50 PM EDT Name of caller: Eren Contact phone number: [phone] Relationship to Patient: patient Provider: Clarice Practice: [...] return their call: N/A documented in this encounterSWayne HealthCare Main CampusFgeatp95-96-6522 Instructions* Patient Instructions* Gemma Roberts APRN.SAMIR - 03/16/2024 10:04 AM EDT Images from [...] Please call and follow up with your chief gauger regarding your prednisone being stopped while in the hospital Movement Disorders Medication Schedule: Medications Return in about 2 months (around 05/16/2024). If there are any concerns before your next visit, please call or you can send a message through [email or web address]. You can also now schedule and select appointments through [email or web address]. Gemma Roberts APRN.SAMIR documented in this encounterBarnesville Hospital10-31-2024 NoteAultman Alliance [facility] Hospital10-31-2024 History of Present illness Narrative* Gemma Roberts APRN.CNP - 03/16/2024 9:08 AM EDT [facility] - FOLLOW UP EVALUATION Priyanka Smith MD [id number] [facility] [id number] Dear Priyanka Smith MD: I had the [...] Change Compared to Last Filed Total -33.33 Wlxv-Ficvuw-[place] Tremor Scale Medication OFF/ON Drug Naiive Time [...] Please call and follow up with your chief gauger regarding your prednisone being stopped while in the hospital Updated Movement Disorders Medication Schedule: Medications Level of service : 18659 (40-68 min). Time spent 57 min on the day of service, which included preparing to see the patient, noko-ma-nblp patient care, completing clinical documentation, obtaining and/or reviewing separately obtained history, performing a medically appropriate examination, counseling and educating the patient/family/caregiver, and ordering medications, tests, or procedures. Gemma Roberts APRN.SAMIR documented in this encounterBarnesville Hospital10-30-2024 Telephone encounter Note * Telephone Encounter - Elma Otoole - 03/15/2024 1:50 PM EDT Name of caller: Eren Contact phone number: [phone] Relationship to Patient: patient Provider: Clarice Practice: [...] business hours to return their call: N/A [facility]imaAnndxn82-24-8118 Telephone encounter Note* Telephone Encounter - Geri Wong MA - 03/10/2024 9:28 AM EDT I called and spoke with patient. She would prefer to establish with GI near her house. She stated they recommended Dr Cipriano - she will call his office today and contact us to let us know who she makes an appointment with and we will send records at that time. [facility]imaQhclug50-01-9002 Miscellaneous Notes* Telephone Encounter - Geri Wong MA - 03/10/2024 9:28 AM EDT I called and spoke with patient. She would prefer to establish with GI near her house. She stated they recommended Dr Cipriano - she will call his office today and contact us to let us know who she makes an appointment with and we will send records at that time. * Telephone Encounter - Cecilia Barney PA-C - 03/07/2024 10:24 AM EDT Patient evaluated inpatient, needs repeat EGD in 8 weeks. Not established, patient lives in [place], please call and see if she would like to follow up with us and if not send records to her preferred follow up physician. documented in this [facility]10-24-2024 NoteDischarge Summary Eren Merchant : 1960 ADMIT [...] seizure activity, signed off Urine culture from [place] on 03/05 shows Proteus mirabilis [place] Count 80,000-100,000 Proteus mirabilis: REACTION Ampicillin Islt [...] mL, IntraMUSCular, Once l (more content not included)...[facility]10-24-2024 Hospital course Narrative* Jesse Do MD - [...] seizure activity, signed off Urine culture from [place] on 03/05 shows Proteus mirabilis [place] Count 80,000- 100,000 Proteus mirabilis: REACTION Ampicillin [...] SIGNIFICANT DIAGNOSTIC STUDIES: MR brain wo contrast [[id number]] Collected: 03/06/242344 Order Status: Completed Updated: 03/06/24 235 Narrative: [facility] 1960 [id number] Exam Date/Time: 03/06/2024 18:46 Procedure: MR BRAIN [...] EDT MR head angio wo IV contrast [[id number]] Collected: 03/06/242348 Order Status: Completed Updated: 03/06/242351 Narrative: Patient [...] EDT MR NECK ANGIO WO IV CONTRAST [[id number]] Collected: 03/06/242348 Order Status: Completed Updated: 03/06/242352 [...] GUIDANCE OR USE ONLY - NON RESULTABLE [[id number]] Resulted: 03/06/24704 Order Status: Completed Updated: 03/06/24704 Narrative: There is no interpretation needed for this exam. CT abdomen pelvis wo IV contrast [[id number]] Collected: 03/05/24915 Order Status: Completed Updated: 03/05/24935 [...] 03/05/2024 9:35 AM EDT US renal complete [[id number]] Collected: 03/04/242308 Order Status: Completed Updated: 03/04/242311 Narrative: Patient Name: [facility]EN MERCHANT : 1960 [id number] Exam Date/Time: 03/04/2024 23:08 Procedure: US RENAL [...] Your Medications These medications were sent to [facility] - [place] - [address] [place] [address] fluconazole 200 MG tablet fludrocortisone 0.1 MG tablet melatonin 3 MG tablet sucralfate 1 g tablet sulfamethoxazole-trimethoprim 800-160 MG tablet DIET: Adult diet Regular ACTIVITY: No restriction. COMPLEXITY OF FOLLOW UP: [] Moderate Complexity: follow up within 7-14 calendar days (09251) [] Severe Complexity: follow up within 7 calendar days (40148) FOLLOW UP TESTING, PENDING RESULTS OR REFERRALS AT TRANSITIONAL CARE VISIT: [] Yes [] No PENDING STUDIES: DISPOSITION: Home FACILITY/HOME CARE AGENCY NAME: Follow up with Pepito Steve MD [address] [facility] [id number] Follow up [facility] [address] [facility] [phone] Schedule an appointment as soon as possible for a visit in 1 week(s) Audi Bae MD [address] [facility] [address] [facility] [phone] Schedule an appointment as soon as possible for a visit in 2 week(s) Aishwarya Fraire MD [address] [facility] [address] [facility] [id number] Schedule an appointment as soon as possible [...] MD 03/09/2024, 4:45 PM documented in this [facility]10-24-2024 [facility] Progress Note [...] 79.5 PLT 548* 453* 401 Recent Labs 03/07/240 03/08/24 0531 03/09/24 0242 NA 133* 130* [...] hesitate to call with any questions or concerns.[facility]10-24-2024 History of Present illness Narrative* Pepito Steve MD - 03/09/2024 3:51 PM EDT [facility] Progress Note Subjective/ 63 y.o. year old female who we are seeing in consultation for hypotension. In bed, at bedside Blood pressure is improved but still soft. Pt asymptomatic. No edema. Dowd is absent, denies issues with UOP ROS Dysphagia Denies chest pain, shortness of breath, Nausea, vomiting , diarrhea, fever or chills. No interval changes to [facility]. All interval notes/labs/imaging reviewed. Objective/ Vitals: 03/09/24 [...] sodium chloride 0.9%, sucralfate Data/ Recent Labs 03/07/240 03/08/24 0531 03/09/24 0242 WBC 19.0* 13.0* 13.8* HGB 12.9 11.1* 10.0* HCT 40.2 34.0* 31.4* MCV 80.7 79.1 79.5 PLT 548* 453* 401 Recent Labs 03/07/240 03/08/24 0531 03/09/24 0242 NA 133* 130* [...] original note were not included. PHYSICAL THERAPY [facility] Initial Evaluation Name/MRN: Eren Merchant ([id number]) Evaluation Date: 03/09/2024 Date of : 1960 Admission Date: 03/04/2024 2:14 PM Age: 63 y.o. 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 Goals and/or treatment plan was established in collaboration with patient/family/other representatives. * Jesse Do MD - 03/09/2024 7:43 AM EDT Hospitalist Progress Note 03/09/2024 Subjective: Admit Date: 03/04/2024 PCP: Priyanka Smith Room#: [id number] A BRIEF HOSPITAL COURSE: Eren is a [...] seizure activity, signed off Urine culture from [place] on 03/05 shows Proteus mirabilis [place] Count 80,000- 100,000 Proteus mirabilis: REACTION Ampicillin [...] Shelton Merchant Mobile Relation: Son Preferred language: Colombian Venture Capitalist needed? No Secondary Emergency Contact: Michael Merchant Mobile Relation: Significant Other Preferred language: Colombian Venture Capitalist needed? No Jesse Do MD Division of Hospitalist Medicine [facility] * Jesse Do MD - 03/08/2024 8:11 [...] seizure activity, signed off Urine culture from [place] on 03/05 shows Proteus mirabilis [place] Count 80,000- 100,000 Proteus mirabilis: REACTION Ampicillin [...] antibiotic stewardship team her urine culture from [place] on 03/05 shows Proteus mirabilis [place] Count 80,000-100,000 Proteus mirabilis: REACTION Ampicillin Islt [...] thyroid gland LABS: CBC: Recent Labs 03/06/24 0503/07/24 0140 03/08/24 0531 WBC 11.2* 19.0* 13.0* [...] Shelton Merchant Mobile Relation: Son Preferred language: Colombian Venture Capitalist needed? No Secondary Emergency Contact: Michael Merchant Mobile Relation: Significant Other Preferred language: Colombian Venture Capitalist needed? No Jesse Do MD Division of Hospitalist Medicine [facility] * Deepika Rivera PA-C - 03/08/2024 8:11 AM EDT [facility] Progress Note Subjective/ 63 [...] fever or chills. No interval changes to [facility]. All interval notes/labs/imaging reviewed. Objective/ Vitals: 03/07/24 [...] chloride 0.9%, sucralfate Data/ Recent Labs 03/06/24 0503/07/24 0140 03/08/24 0531 WBC 11.2* 19.0* 13.0* HGB 12.2 12.9 11.1* HCT 36.8 40.2 34.0* MCV 77.8 80.7 79.1 PLT 462* 548* 453* Recent Labs 03/06/24 0503/07/24 0140 03/08/24 0531 [...] with any questions or concerns. TRUDI Domingo, PA-C [facility] Office This note is not finalized until authorized by Attending physician. Cosigned by Pepito Steve MD at 03/08/2024 2:49 PM EDT Associated attestation - Pepito Steve MD - 03/08/2024 2:49 PM EDT Notes reviewed and plan discussed with the PA. Agree with above note except Any variance is noted below. Pepito Steve MD [facility] [phone] * Jesse Do MD - 03/07/2024 9:31 [...] LABS: CBC: Recent Labs 03/05/24 0400 03/06/24 0503/07/24 0140 WBC 12.4* 11.2* 19.0* RBC 4.87 [...] Shelton Merchant Mobile Relation: Son Preferred language: Colombian Venture Capitalist needed? No Secondary Emergency Contact: Michael Merchant Mobile Relation: Significant Other Preferred language: Colombian Venture Capitalist needed? No Jesse Do MD Division of Hospitalist Medicine [facility] * Danni Castellon, HAILE - [facility] - 03/07/2024 7:44 AM EDT NEUROLOGY FOLLOW UP NOTE - Neurology Inpatient Service Patient Name: Eren Merchant Patient : 1960 Acct: [id number] Date of Admission: 03/04/2024 Room/Bed: 6105/6105 A PCP: Priyanka Smith 03/07/2024 Subjective: The [...] recent episodes which prompted her transfer to [facility] for further workup. On 02/26/24, patient was talking to her dad on the phone. The next thing she remembers is lying on the ground. She believes she had LOC but does not know duration. Estimates less than one minute. She had another episode while at the rologist's office on 03/03/24. She walked up to child care center assistant director desk, all of a sudden both arms [...] by mouth Nightly. AVS from 03/03 from [facility] with Dr. Benitez states: discontinue the elavil [...] 2 times daily. 1000 mg in morning [id number] at night per patient Historical Provider, predniSONE [...] Black MD, Last Rate: 100 mL/hr at 03/07/24639, 1,000 mg at 03/07/24639 fludrocortisone (Florinef) tablet [...] Jay Black MD, 100 mcg at 03/07/24 0638 melatonin tablet 3 mg, 3 mg, Oral, [...] (96.8 F) Temporal 103 12 96 % 03/06/24 2129 112/74 36.4 C (97.5 F) Temporal 109 [...] Slight (A) (none) Polychromasia Slight (A) (none) Mago Cells Moderate (A) (none) Acanthocytes Rare (A) [...] S-shaped curves. CT Head w/o contrast 03/04/24 ([facility]) Per report: no acute intracranial abn [...] be monitored and followed by the diet field artillery targeting technician. ALEE Agustin * HAILE Dinh CNP [...] Plan discussed with Dr. Cruz. * Antony Awad, - 03/06/2024 10:34 AM EDT Hospitalist Progress Note 03/06/2024 Subjective: Admit Date: 03/04/2024 PCP: Priyanka Smith Room#: [id number] A BRIEF HOSPITAL COURSE: Eren is a [...] Shelton Merchant Mobile Relation: Son Preferred language: Colombian Venture Capitalist needed? No Secondary Emergency Contact: Michael Merchant Mobile Relation: Significant Other Preferred language: Colombian Venture Capitalist needed? No Antony Awad DO Division of Hospitalist Medicine [facility] * Cecilia Barney PA-C - 03/06/2024 7:39 [...] and states has dysmotility. 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 and ended up having drug i [...] AC, Jay Black MD, 40 mg at 03/06/24520 polyethylene glycol (PEG) 3350 (Miralax) packet 17 [...] reviewed with the patient. CBC: Recent Labs 03/04/24182703/05/2439903/06/24 0523 WBC 15.3* 12.4* 11.2* RBC 4.66 4.87 4.73 HGB 12.0 12.3 12.2 HCT 37.2 38.2 36.8 MCV 79.8 78.4 77.8 MCH 25.8* 25.3* 25.8* MCHC 32.3 32.2 33.2 RDW 15.2* 15.3* 15.2* PLT 421 466* 462* MPV 10.3 10.3 10.3 CMP: Recent Labs 03/04/24182703/05/240 03/06/24 0523 NA 131* 133* 132* K [...] specimen was done by the nurse and field artillery targeting technician using the patient's name, date and [...] follow up with local GI (Dr. Cota [facility]), will send records prior to discharge Cosigned [...] of thyroid gland LABS: CBC: Recent Labs 03/04/248 03/05/24 0400 WBC 15.3* 12.4* RBC 4.66 4.87 [...] Shelton Merchant Mobile Relation: Son Preferred language: Colombian Venture Capitalist needed? No Secondary Emergency Contact: Michael Merchant Mobile Relation: Significant Other Preferred language: Colombian Venture Capitalist needed? No Antony Awad DO Division of Hospitalist Medicine [facility] documented in this [facility]10-24-2024 NotePHYSICAL THERAPY [facility] Initial Evaluation Name/MRN: Eren Merchant ([id number]) Evaluation Date: 03/09/2024 Date of : 1960 Admission Date: 03/04/2024 2:14 PM Age: 63 y.o. 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 [...] Outcome: Verbalized Understanding Goals (more content not included)...[facility]10-24-2024 Note Hospitalist Progress Note 03/09/2024 Subjective: Admit [...] seizure activity, signed off Urine culture from [place] on 03/05 shows Proteus mirabilis [place] Count 80,000-100,000 Proteus mirabilis: REACTION Ampicillin Islt [...] sodium chloride 0.9%, 5-4 (more content not included)...[facility] 03-08-2024 Plan of care note* Care Plan [...] 03/08/20241910 by Neelima Peng RN Outcome: Progressing [id number] Miscellaneous Notes* Care Plan - Neelima Peng RN - 03/08/2024 10:46 PM EDT Problem: Pain - Adult Goal: Verbalizes/displays adequate comfort level or baseline comfort level 03/08/20242245 by Neelima Peng RN Outcome: Progressing 03/08/20241910 by Neelima Peng RN Outcome: Progressing Problem: Safety - Adult Goal: Free from fall injury 03/08/20242245 by Neelima Peng RN Outcome: Progressing 03/08/20241910 by Neelima Peng RN Outcome: Progressing * [...] Please call the Main Endoscopy Dept at [phone] for questions. Report called to JUAN Recio [...] - 03/07/2024 7:56 AM EDT Endoscopy Center- [facility] Patient Name: Eren Merchant Procedure Date: 03/07/2024 7:56 AM Gender: Female Date of : 1960 Age: 63 Admit Type: Inpatient Note Status: Finalized Endoscopist: Jennifer Sung MD, [id number] Procedure: Upper GI endoscopy Indications: Epigastric abdominal [...] immediate complications. Procedure Code(s): --- Professional --- 83436, Esophagogastroduodenoscopy, flexible, transoral; with biopsy, single or multiple --- Technical --- 64521, Esophagogastroduodenoscopy, flexible, transoral; with biopsy, single or [...] parts of digestive tract CPT copyright 2021 [employer]. All rights reserved. The codes documented in this report are preliminary and upon plastics fabricator or welder review may be revised to meet current [...] Limits Permission given to speak with patient help desk representative/caregiver as indicated: Yes Confirmation of Payer with patient/family: Yes Payer Name: [place]: No Confirmation of Primary Care Physician: Confirmed [...] Prescription Coverage: Yes Pharmacy Used: [facility] Medication Management: Independent Transportation/Shopping: Independent Transportation [...] [facility]. [facility] Repeat [facility] [...] masses or lesions. Left Then a 0.035 [place] wire was advanced to the level of the kidney. A 6 fr x 24cmJJ stent was advancedover the wire through the cystoscope under fluoroscopic visualization. Once in position the wire was removed. A good curl was noted in the kidney and the bladder. Right Then a 0.035 [place] wire was advanced to the level of [...] or improved Outcome: Progressing documented in this [place] [id number] Plan of care note* Care Plan - Neelima Peng RN - 03/08/2024 7:11 PM EDT The patient is Moderately Stable - Low risk of patient condition declining or worsening The patient's goals for the shift include admission and pain control The clinical goals for the shift include admission [id number] Nurse Note* Karen Garcia RN - 03/08/2024 2:07 PM EDT Pt asked if she could go to the bathroom by herself. I advised that she is still a high fall risk and we want her to please use the call light for help to get up to the bathroom. Pt verbalized understanding. [facility]imaEnkiyw24-03-2471 Nurse Note* Karen Garcia RN - 03/08/2024 [...] in alone with cards for [employer] and hot car charger. Patient said they could be brought in on Wednesday. * Bertha Zavala RN - 03/05/2024 3:24 AM EDT Patient had orthostatic vitals taken, blood pressure standing was 83/55. Rapid notified, told to reach out to doctor. Doctor notified and no further orders placed. Waited on transportation but told by nursing supervisor steffen house patient okay to take over in wheelchair. Patient taken to H6 in stable condition. documented in this [facility]10-23-2024 Note* Care Coordination - Lola Howe RN - 03/08/2024 8:21 AM EDT Case Management Progress Note: Patient remains on H6 s/p b/l uretal stent insertion 03/05/2024. Regular diet noted. Neuro following. EEG negative. MRI/MRA negative. EGD demonstrated brad esophagitis, Diflucan noted. Nephrology/Urology following. IV Rocephin noted. Urine, no growth final. Discharge Plan: TBD. TCC to assist and follow as needed. at8:26 AM [id number] Note* Care Coordination - Lola Howe RN - 03/08/2024 8:21 AM EDT Case Management Progress Note: Patient remains on H6 s/p b/l uretal stent insertion 03/05/2024. Regular diet noted. Neuro following. EEG negative. MRI/MRA negative. EGD demonstrated brad esophagitis, Diflucan noted. Nephrology/Urology following. IV Rocephin noted. Urine, no growth final. Discharge Plan: TBD. TCC to assist and follow as needed. at8:26 AM [address]Flpfsd10-89-1517 NoteCase Management Progress Note: Patient remains on H6 s/p b/l uretal stent insertion 03/05/2024. Regular diet noted. Neuro following. EEG negative. MRI/MRA negative. EGD demonstrated brad esophagitis, Diflucan noted. Nephrology/Urology following. IV Rocephin noted. Urine, no growth final. Discharge Plan: TBD. TCC to assist and follow as needed. [facility]10-23-2024 Note Hospitalist Progress Note 03/08/2024 Subjective: Admit Date: 03/04/2024 PCP: Priyanka Smith Room#: [id number] A BRIEF HOSPITAL COURSE: rEen is a 63 y.o. female with past [...] seizure activity, signed off Urine culture from [place] on 03/05 shows Proteus mirabilis [place] Count 80,000-100,000 Proteus mirabilis: REACTION Ampicillin Islt [...] antibiotic stewardship team her urine culture from [place] on 03/05 shows Proteus mirabilis [place] Count 80,000-100,000 Proteus mirabilis: REACTION Ampicillin Islt [...] of thyroid gland LABS: CBC: Recent Labs 03/06/2452203/07/240 03/08/24 0531 WBC 11.2* 19.0* 13.0* RBC 4.73 4.98 4.30 HGB 12.2 12.9 11.1* HCT 36.8 40.2 34.0* MCV 77.8 80.7 79.1 RDW 15.2* 15.4* 15.4* PLT 462* 548* 453* BMP: Recent Labs 03/06/2452203/07/24 0140 03/08/24 0531 NA [...] normal. Behavior: Behavior sallie (more content not included)...[facility] 03-08-2024 Plan of care note* Care Plan [...] monitored and maintained or improved Outcome: Progressing [facility]imaVrkvzq59-14-6133 Plan of care note* Care Plan - [...] monitored and maintained or improved Outcome: Progressing [facility]imaJlxefu05-42-9998 Consult note* Pepito Steve MD - 03/07/2024 1:47 PM EDT Associated Order(s): IP CONSULT TO NEPHROLOGY [facility] Consultation Note Reason for consultation: Hypotension 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: Outside hospital transfer History of Presenting Illness Patient is a 63 y.o. female with PMHx noted below who presented to [facility] ED on 03/04/2024 [facility] ED. Patient presented for ml of seizure-like [...] cystitis. Given concern for malignancy, [facility] and medical admission for further [...] with nephrology under Regulo Mendoza MD with [facility]. Scr is currently 2.35. As high as [...] Resource Strain: High Risk (03/26/2020) Received from [facility] Overall Financial Resource Strain (CARDIA) Difficulty of Paying Living Expenses: Very hard Food Insecurity: No Food Insecurity (03/26/2020) Received from [facility] Hunger Vital Sign Worried About Running Out of Food in the Last Year: Never true Ran Out of Food in the Last Year: Never true Transportation Needs: No Transportation Needs (03/26/2020) Received from [facility] PRAPARE - Transportation Lack of Transportation (Medical): No Lack of Transportation (Non-Medical): No Physical Activity: Inactive (06/22/2023) Received from [facility] Exercise Vital Sign Days of Exercise per Week: 0 days Minutes of Exercise per Session: 0 min Stress: No Stress Concern Present (09/03/2019) Received from [facility] [employer] - Occupational Stress Questionnaire Feeling of Stress : Not at all Social Connections: Unknown (03/01/2020) Received from [facility] Social Connection and Isolation Panel [NHANES] Frequency [...] by mouth Nightly. AVS from 03/03 from [facility] with [address]. Benitez states: discontinue the elavil [...] 2 times daily. 1000 mg in morning [id number] at night per patient predniSONE (Deltasone) 5 [...] three Data Recent Labs 03/05/24 0400 03/06/2452203/07/24 014 WBC 12.4* 11.2* 19.0* HGB 12.3 12.2 12.9 HCT 38.2 36.8 40.2 MCV 78.4 77.8 80.7 PLT 466* 462* 548* Recent Labs 03/05/24 0400 03/06/2452203/07/24 0140 NA [...] vitals -Rest of management per primary team [facility]imaCnhxty22-14-9505 [facility] Consultation Note Reason for consultation: Hypotension 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: Outside hospital transfer History of Presenting Illness Patient is a 63 y.o. female with PMHx noted below who presented to [facility] ED on 03/04/2024 as transfer from [facility] ED. Patient presented for ml of seizure-like [...] cystitis. Given concern for malignancy, urology at [facility] recommended transfer and medical admission for [...] with nephrology under Regulo Mendoza MD with [facility]. Scr is currently 2.35. As high as [...] Resource Strain: High Risk (03/26/2020) Received from [facility] Overall Financial Resource Strain (CARDIA) Difficulty of Paying Living Expenses: Very hard Food Insecurity: No Food Insecurity (03/26/2020) Received from [facility] Hunger Vital Sign Worried About Running Out of Food in the Last Year: Never true Ran Out of Food in the Last Year: Never true Transportation Needs: No Transportation Needs (03/26/2020) Received from [facility] PRAPARE - Transportation Lack of Transportation (Medical): No Lack of Transportation (Non-Medical): No Physical Activity: Inactive (06/22/2023) Received from [facility] Exercise Vital Sign Days of Exercise per Week: 0 days Minutes of Exercise per Session: 0 min Stress: No Stress Concern Present (09/03/2019) Received from [facility] [employer] - Occupational Stress Questionnaire Feeling of Stress : Not at all Social Connections: Unknown (03/01/2020) Received from [facility] Social Connection and Isolation Panel [NHANES] Frequency [...] by mouth Nightly. AVS from 03/03 from [facility] (more content not included)...[facility]10-22-2024 Consult note* Pepito Steve MD - 03/07/2024 1:47 PM EDTAssociated Order(s): IP CONSULT TO NEPHROLOGY [facility] Consultation Note Reason for consultation: Hypotension 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: Outside hospital transfer History of Presenting Illness Patient is a 63 y.o. female with PMHx noted below who presented to [facility] ED on 03/04/2024 as [facility] ED. Patient presented for ml of seizure-like [...] cystitis. Given concern for malignancy, [facility] [place] [facility] and medical admission for further [...] with nephrology under Regulo Mendoza MD with [facility]. Scr is currently 2.35. As high as [...] Resource Strain: High Risk (03/26/2020) Received from [facility] Overall Financial Resource Strain (CARDIA) Difficulty of Paying Living Expenses: Very hard Food Insecurity: No Food Insecurity (03/26/2020) Received from [facility] Hunger Vital Sign Worried About Running Out of Food in the Last Year: Never true Ran Out of Food in the Last Year: Never true Transportation Needs: No Transportation Needs (03/26/2020) Received from [facility] PRAPARE - Transportation Lack of Transportation (Medical): No Lack of Transportation (Non-Medical): No Physical Activity: Inactive (06/22/2023) Received from [facility] Exercise Vital Sign Days of Exercise per Week: 0 days Minutes of Exercise per Session: 0 min Stress: No Stress Concern Present (09/03/2019) Received from [facility] [employer] - Occupational Stress Questionnaire Feeling of Stress : Not at all Social Connections: Unknown (03/01/2020) Received from [facility] Social Connection and Isolation Panel [NHANES] Frequency [...] by mouth Nightly. AVS from 03/03 [address] [facility] with Dr. Benitez states: discontinue the elavil [...] 2 times daily. 1000 mg in morning [id number] at night per patient predniSONE (Deltasone) 5 [...] three Data Recent Labs 03/05/24 0400 03/06/24 0503/07/24 0140 WBC 12.4* 11.2* 19.0* HGB 12.3 [...] PATTON MD 03/05/24 12:28 PM - Page senior reservations agent resident with questions. Cosigned by Katherine Bowen [...] Eren Merchant Date of : 1960 Acct: [id number] PCP: Priyanka Smith Date of Admission: 03/04/2024 [...] recent episodes which prompted her transfer to [facility] for further workup. On 02/26/24, patient [...] office on 03/03/24. 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 Head trauma (no); 2. MASTER CHEF infections (no); 3. Family history of seizures (yes, brother); 4. Developmental delay (no); 5. Febrile seizures (no); 6. MASTER CHEF tumors (no); 7. MASTER CHEF vascular disease (no); 8. Significant medical history: CKD, ILD, current complicated UTI; 9. and early development: normal and early development Patient presented to [facility] and was found to be tachycardic. 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. As far as neurologic history: Patient [...] 2 times daily. 1000 mg in morning [id number] at night per patient Historical Provider, predniSONE [...] capsule 500 mg, 500 mg, Oral, qPM, Mauirlio Groves MD ondansetron ODT (Zofran-ODT) disintegrating tablet [...] Right: flexor Left: flexor Labs: Recent Labs 03/04/24 1828 03/05/24 0400 WBC 15.3* 12.4* HGB 12.0 12.3 HCT 37.2 38.2 PLT 421 466* Recent Labs 03/04/24 1828 03/05/24 0400 NA 131* 133* K 4.1 4.2 CL 104 102 CO2 18* 17* BUN 58* 60* CREATININE 2.46* 2.67* CALCIUM 10.5* 11.3* Recent Labs 03/04/24 1828 AST 27 ALT 17 BILITOT 0.5 ALKPHOS 96 Recent Labs 03/04/24 1828 ALKPHOS 96 ALT 17 AST 27 BILITOT 0.5 Radiology: (personally reviewed) CT Head w/o contrast 03/04/24 ([facility]) Per report: no acute intracranial abn [...] and states has dysmotility. 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 and ended up having drug induced [...] cystitis 03/03/2024 ILD (interstitial lung disease) ([facility]) 03/25/2020 Lung nodules 02/12/2020 NSIP (nonspecific interstitial pneumonitis) ([facility]) 10/30/2022 Stage 3a chronic kidney disease (HCC) 01/12/2023 Post-menopausal bleeding 11/25/2018 Acquired hypothyroidism 03/04/2024 Resolved Ambulatory Problems Diagnosis Date Noted No Resolved Ambulatory Problems Past Medical History: Diagnosis Date Arthritis Cancer (CMS/HCC) ([facility]) Disease of thyroid gland Past Surgical History: [...] Resource Strain: High Risk (03/26/2020) Received from [facility] Overall Financial Resource Strain (CARDIA) Difficulty of Paying Living Expenses: Very hard Food Insecurity: No Food Insecurity (03/26/2020) Received from [facility] Hunger Vital Sign Worried About Running Out of Food in the Last Year: Never true Ran Out of Food in the Last Year: Never true Transportation Needs: No Transportation Needs (03/26/2020) Received from [facility] PRAPARE - Transportation Lack of Transportation (Medical): No Lack of Transportation (Non-Medical): No Physical Activity: Inactive (06/22/2023) Received from [facility] Exercise Vital Sign Days of Exercise per Week: 0 days Minutes of Exercise per Session: 0 min Stress: No Stress Concern Present (09/03/2019) Received from [facility] [employer] [place] [employer] - Occupational Stress Questionnaire Feeling of Stress : Not at all Social Connections: Unknown (03/01/2020) Received from [facility] Social Connection and Isolation Panel [NHANES] Frequency of Communication with Friends and Family: Three times a week Frequency of Social Gatherings with Friends and Family: Three times a week Attends Anglican Services: Not on file Active Member of [...] 466* MPV 10.3 10.3 CMP: Recent Labs 03/04/248 03/05/24 0400 NA 131* [...] doctor has moved and she has no sharepoint admin. Usually we ll treat for brad esophagitis empirically however with no recent EGD and concerning CT findings which is not available for review, needs further investigation. Her current acute issue is sepsis however, once her hemodynamics are improved, can perform an EGD to rule out any advanced lesion given the imaging findings. If negative, recommend she establishes with a local GI in [place] for ongoing care for dysmotility. Will follow the clinical course. No EGD planned for tomorrow. [facility] GI documented in this [facility]10-22-2024 Note* Post-Procedure Note - Lisette Dunbar RN - 03/07/2024 10:24 AM EDT POST ENDOSCOPY PROCEDURE TRANSFER REPORT Physician: Procedure completed: EGD Specimens obtained: antrum bx Medications administered: see anesthesia note Findings: see physician's note Complications: n/a Please call the Main Endoscopy Dept at [phone] for questions. Report called to JUAN Recio on H6 [id number] Note* Post-Procedure Note - Lisette Dunbar RN - 03/07/2024 10:24 AM EDT POST ENDOSCOPY PROCEDURE TRANSFER REPORT Physician: Procedure completed: EGD Specimens obtained: antrum bx Medications administered: see anesthesia note Findings: see physician's note Complications: n/a Please call the Main Endoscopy Dept at [phone] for questions. Report called to JUAN Recio on H6 [facility]imaZzvqsl10-20-8098 NotePOST ENDOSCOPY PROCEDURE TRANSFER REPORT Physician: Procedure completed: EGD Specimens obtained: antrum bx Medications administered: see anesthesia note Findings: see physician's note Complications: n/a Please call the Main Endoscopy Dept at [phone] for questions. Report called to JUAN Recio on [address]10-22-2024 Telephone encounter Note* Telephone Encounter - Cecilia Barney PA-C - 03/07/2024 10:24 AM EDT Patient evaluated inpatient, needs repeat EGD in 8 weeks. Not established, patient lives in [place], please call and see if she would like to follow up with us and if not send records to her preferred follow up physician. [facility]imaYilkue86-91-3783 Miscellaneous Notes* Telephone Encounter - Cecilia Barney PA-C - 03/07/2024 10:24 AM EDT Patient evaluated inpatient, needs repeat EGD in 8 weeks. Not established, patient lives in [place], please call and see if she would like to follow up with us and if not send records to her preferred follow up physician. documented in this [facility]10-22-2024 NotePatient: Eren Merchant Procedure Summary Date: 03/07/24 Room / Location: [facility] ENDO 7 / [facility] Gastroenterology Anesthesia Start: 999 Anesthesia Stop: 1012 Procedure: ESOPHAGOGASTRODUODENOSCOPY WITH BIOPSY Diagnosis: Esophageal dysmotility [...] discharged once all PACU criteria has been met.[facility]10-22-2024 NotePatient: Eren Merchant Procedure Summary Date: 03/07/24 Room / Location: [facility] ENDO 7 / [facility] G[facility]ology Anesthesia Start: 999 Anesthesia Stop: 1012 Procedure: ESOPHAGOGASTRODUODENOSCOPY WITH BIOPSY Diagnosis: Esophageal dysmotility [...] Allowed opportunity for questions and acknowledgement of understanding.[facility] [id number] NoteHospitalist Progress Note 03/07/2024 Subjective: Admit Date: [...] of thyroid gland LABS: CBC: Recent Labs 03/05/240 03/06/2452203/07/24 0140 WBC 12.4* 11.2* 19.0* RBC [...] (each=1). (LOW: 2x CAT (more content not included)...[facility]10-22-2024 NotePatient: Eren Merchant Procedure Information Date/Time: 03/07/24 0845 Procedure: ESOPHAGOGASTRODUODENOSCOPY WITH BIOPSY Location: [facility] ENDO 7 / [facility] G[facility] Providers: Jennifer Sung MD Relevant Problems [...] 03/05/2024 5:08 PM Equipment Requests: Additional [facility]sUniversity [facility]10-[facility]-2024 Note* Care Coordination - Lola Howe RN - 03/07/2024 8:01 AM EDT Case Management Progress Note: Patient remains on H6 s/p b/l uretal stent insertion 03/05/2024. Regular diet noted. Neuro following. EEG negative. MRI/MRA pending. GI following, plan for EGD d/t dysphagia. Urology following. IV Rocephin noted. Urine, no growth final. Discharge Plan: TBD. TCC to assist and follow as needed. [id number] Note* Care Coordination - Lola Howe RN - 03/07/2024 8:01 AM EDT Case Management Progress Note: Patient remains on H6 s/p b/l uretal stent insertion 03/05/2024. Regular diet noted. Neuro following. EEG negative. MRI/MRA pending. GI following, plan for EGD d/t dysphagia. Urology following. IV Rocephin noted. Urine, no growth final. Discharge Plan: TBD. TCC to assist and follow as needed. [id number] NoteCase Management Progress Note: Patient remains on H6 s/p b/l uretal stent insertion 03/05/2024. Regular diet noted. Neuro following. EEG negative. MRI/MRA pending. GI following, plan for EGD d/t dysphagia. Urology following. IV Rocephin noted. Urine, no growth final. Discharge Plan: TBD. TCC to assist and follow as needed. [facility]10-22-2024 Note* Op Note - Jennifer Sung MD - 03/07/2024 7:56 AM EDT Endoscopy Center- [facility] Patient Name: Eren Merchant Procedure Date: 03/07/2024 7:56 AM Gender: Female Date of : 1960 Age: 63 Admit Type: Inpatient Note Status: Finalized Endoscopist: Jennifer Sung MD, [id number] Procedure: Upper GI endoscopy Indications: Epigastric abdominal [...] immediate complications. Procedure Code(s): --- Professional --- 39608, Esophagogastroduodenoscopy, flexible, transoral; with biopsy, single or multiple --- Technical --- 36509, Esophagogastroduodenoscopy, flexible, transoral; with biopsy, single or [...] parts of digestive tract CPT copyright 2021 [employer]. All rights reserved. The codes documented in this report are preliminary and upon plastics fabricator or welder review may be revised to meet current compliance requirements. Jennifer Sung MD 03/07/2024 10:28:23 AM This report has been signed electronically. Number of Addenda: 0 Note Initiated On: 03/07/2024 7:56 AM XGIM[facility] Phone: 1(908) 108-909410-22-2024 Note* Op Note - Jennifer Sung MD - 03/07/2024 7:56 AM EDT [facility] Name: Eren Merchant Procedure Date: 03/07/2024 7:56 AM Gender: Female Date of : 1960 Age: 63 Admit Type: Inpatient Note Status: Finalized Endoscopist: Jennifer Sung MD, [id number] Procedure: Upper GI endoscopy Indications: Epigastric abdominal [...] immediate complications. Procedure Code(s): --- Professional --- 87706, Esophagogastroduodenoscopy, flexible, transoral; with biopsy, single or multiple --- Technical --- 27170, Esophagogastroduodenoscopy, flexible, transoral; with biopsy, single or [...] parts of digestive tract CPT copyright 2021 [employer]. All rights reserved. The codes documented in this report are preliminary and upon plastics fabricator or welder review may be revised to meet current compliance requirements. Jennifer Sung MD 03/07/2024 10:28:23 AM This report has been signed electronically. Number of Addenda: 0 Note Initiated On: 03/07/2024 7:56 AM [employer] [facility] Phone: 1(882) 217-701010-22-2024 [facility] Patient Name: Eren Merchant Procedure Date: 03/07/2024 7:56 AM Gender: Female Date of : 1960 Age: 63 Admit Type: Inpatient Note Status: Finalized Endoscopist: Jennifer Sung MD, [id number] Procedure: Upper GI endoscopy Indications: Epigastric abdominal [...] immediate complications. Procedure Code(s): --- Professional --- 45335, Esophagogastroduodenoscopy, flexible, transoral; with biopsy, single or multiple --- Technical --- 69653, Esophagogastroduodenoscopy, flexible, transoral; with biopsy, single or [...] parts of digestive tract CPT copyright 2021 [employer]. All rights reserved. The codes documented in this report are preliminary and upon plastics fabricator or welder review may be revised to meet current compliance requirements. Jennifer Sung MD 03/07/2024 10:28:23 AM This report has been signed electronically. Number of Addenda: 0 Note Initiated On: 03/07/2024 7:56 [facility] [id number] Plan of care note* Care Plan - [...] monitored and maintained or improved Outcome: Progressing [employer] [id number] Note* Care Coordination - Lola Howe RN - 03/06/2024 2:01 PM EDT Care Managment Initial Assessment Date: 03/06/2024 Patient Name: Eren Merchant : 1960 Patient Information Source of Information: Patient Cognition/Language: WFL - Within Functional Limits Permission given to speak with patient help desk representative/caregiver as indicated: Yes Confirmation of Payer with patient/family: Yes Payer Name: [employer] [place]: No Confirmation of Primary Care Physician: Confirmed [...] Prescription Coverage: Yes Pharmacy Used: [facility] [place] Medication Management: Independent Transportation/Shopping: Independent Transportation Mode: Car Needs Assistance with Transportation at Discharge: No Meal Preparation: Independent Laundry/Cleaning: Independent Finances/Bill Paying: Independent Communication: Independent Types of Care Services/Equipment Utilized Care Services: Dialysis Type: Durable Medical Equipment: Patient's Goal/Discharge Plan Patient expects to be discharged to: [facility] Discharge Planning Actions: Continue to follow Patient's [...] and follow as needed. Lola Howe RN [facility] [id number] Note* Care Coordination - Lola Howe RN - 03/06/2024 2:01 PM EDT Care Managment Initial Assessment Date: 03/06/2024 Patient Name: Eren Merchant : 1960 Patient Information Source of Information: Patient Cognition/Language: WFL - Within Functional Limits Permission given to speak with patient help desk representative/caregiver as indicated: Yes Confirmation of Payer [...] Prescription Coverage: Yes Pharmacy Used: [facility] [place] Medication Management: Independent Transportation/Shopping: Independent Transportation Mode: [...] follow as needed. Lola Howe RN T [id number] [facility] EPILEPSY CENTER & EEG LABORATORY [address] [place] [address] ROUTINE EEG REPORT Patient Name: Eren Merchant : 1960 Date of Study: 03/06/24 Duration Recorded: 24 Minutes EEG#: [id number] DESKTOP ANALYST: Cleo GARCÍA T. PROVIDER REQUESTING STUDY: Kayli Velasquez MD [...] recent episodes which prompted her transfer to [facility] for further workup. On 02/26/24, patient [...] office on 03/03/24. 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 Scalp electrodes were positioned in person by an educational technologist, following patient education, according to the 10-20 International system of electrode placement and maintained for integrity and quality of the recording. EEG data with video was recorded continuously and digitally stored. The educational technologist reviewed all automated detections and manual events and prepared the data for archiving and provider review. Referential and bipolar montages were used for review. TECHNOLOGIST NOTES: No skull or scalp defects were observed. BACKGROUND ACTIVITY: Posterior background activity: A continuous organized and well-modulated 8 Hz (more content not included)...[facility]10-21-2024 [facility] EPILEPSY CENTER & EEG LABORATORY [address] [place] [address] ROUTINE EEG REPORT Patient Name: Eren Merchant : 1960 Date of Study: 03/06/2024 Duration Recorded: 24 Minutes EEG#: [id number] DESKTOP ANALYST: Cleo Cano. PROVIDER REQUESTING STUDY: Kayli Velasquez [...] recent episodes which prompted her transfer to [facility] for further workup. On 02/26/24, patient [...] office on 03/03/24. 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 Scalp electrodes were positioned in person by an educational technologist, following patient education, according to the 10-20 International system of electrode placement and maintained for integrity and quality of the recording. EEG data with video was recorded continuously and digitally stored. The educational technologist reviewed all automated detections and manual events and prepared the data for archiving and provider review. Referential and bipolar montages were used for review. TECHNOLOGIST NOTES: No skull or scalp defects were observed. BACKGROUND ACTIVITY: Posterior background activity: A continuous organized and well-modulated 8 (more content not included)...[facility]10-21-2024 Procedure note* Mario Angel MD PhD - 03/06/2024 11:31 AM EDTAssociated Order(s): EEG Images from the original note were not included. [facility] EPILEPSY CENTER & EEG LABORATORY [address] [place] [address] ROUTINE EEG REPORT Patient Name: Eren Merchant : 1960 Date of Study: 03/06/2024 Duration Recorded: 24 Minutes EEG#: [id number] DESKTOP ANALYST: Cleo Claire PROVIDER REQUESTING STUDY: Kayli Velasquez MD REASON [...] recent episodes which prompted her transfer to [facility] for further workup. On 02/26/24, patient [...] office on 03/03/24. 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 Scalp electrodes were positioned in person by an educational technologist, following patient education, according to the 10-20 International system of electrode placement and maintained for integrity and quality of the recording. EEG data with video was recorded continuously and digitally stored. The educational technologist reviewedall automated detections and manual events [...] Neurophysiologist Mario Angel MD PhD Epilepsy Attending [facility] Work Phone: 1(519) 212-213010-21-2024 Procedure note* Mario Angel MD PhD - 03/06/2024 11:31 AM EDTAssociated Order(s): EEG Images from the original note were not included. [facility] EPILEPSY CENTER & EEG LABORATORY [address] [place] [address] ROUTINE EEG REPORT Patient Name: Eren Merchant : 1960 Date of Study: 03/06/2024 Duration Recorded: 24 Minutes EEG#: [id number] DESKTOP ANALYST: Cleo Cano. PROVIDER REQUESTING STUDY: Kayli Velasquez [...] recent episodes which prompted her transfer to [facility] for further workup. On 02/26/24, patient [...] office on 03/03/24. 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 Scalp electrodes were positioned in person by an educational technologist, following patient education, according to the 10-20 International system of electrode placement and maintained for integrity and quality of the recording. EEG data with video was recorded continuously and digitally stored. The educational technologist reviewedall automated detections and manual events [...] MD PhD Epilepsy Attending documented in this [facility]10-21-2024 NoteHospitalist Progress Note 03/06/2024 Subjective: Admit Date: 03/04/2024 PCP: Priyanka Burt#: [id number] A BRIEF HOSPITAL COURSE: Eren is a [...] - monitor on tel (more content not included)...[facility]10-21-2024 Plan of care note* Care Plan - [...] monitored and maintained or improved Outcome: Progressing [facility]imaLjthps43-48-2101 Telephone encounter Note* Telephone Encounter - Geri Wong MA - 03/06/2024 8:12 AM EDT Per Caitlin, sent in error. Will disregard. TY [facility] [id number] Miscellaneous Notes* Telephone Encounter - Geri Wong [...] pain and elevated LFTs. documented in this encounterSWayne HealthCare Main CampusNhpamc51-42-3052 Telephone encounter Note* Telephone Encounter - Cecilia Barney PA-C - 03/06/2024 8:08 AM EDT Patient to have repeat LFTs in 1 week as ordered by primary team during inpatient stay. Please schedule patient for hospital follow up for abdominal pain and elevated LFTs. [facility] LimaOzaceq63-46-7103 NoteDepartment of Internal Medicine Gastroenterology Progress Note SUBJECTIVE: GI following for dysphagia, abnormal CT. Patient with past medical history of CKD3, ILD/nonspecific interstitial pneumonia (on cellcept and prednisone), hypothyroidism, thymoma (resected 2018), immunosuppression and dysphagia transferred from [facility] for UTI with sepsis, concern for ureteral malignancy, , hypotension and tachycardia. Found to have hydronephrosis. Also with seizure like activity for which neurology is following. Plan for MRIs. On CT incidentally found to have esophageal thickening. Patient has been suffering from chronic dysphagia for years and states has dysmotility. She was on fdc reglan and ended up having drug induced [...] day, Jay Black MD, 5,000 Units at 03/06/24520 influenza vaccine A&B surf ant [...] non-distended; no hepatomegaly. Extremitie (more content not included)...[facility]10-21-2024 Plan of care note* Care Plan - [...] monitored and maintained or improved Outcome: Progressing [facility]imaDvlzjt23-23-0473 Note* Perioperative Nursing Note - Reji Lopez RN - 03/05/2024 6:54 PM EDT Pt ambulated to restroom with RN assist x 1, voided twice adequately. Returned to bed and transporttaking pt to room. [place] [id number] Note* Perioperative Nursing Note - Reji Lopez RN - 03/05/2024 6:54 PM EDT Pt ambulated to restroom with RN assist x 1, voided twice adequately. Returned to bed and transporttaking pt to room. [place] [id number] Note* Perioperative Nursing Note - Reji Lopez RN - 03/05/2024 6:41 PM EDT Pt doing well, awake and drinking water, no complaints, attempted bedpan but was unable, pt states she can wait to try the restroom in a little while. Report called and in for transport. [facility]imaFhftqf70-03-4752 Note* Perioperative Nursing Note - Reji Lopez RN - 03/05/2024 6:41 PM EDT Pt doing well, awake and drinking water, no complaints, attempted bedpan but was unable, pt states she can wait to try the restroom in a little while. Report called and in for transport. [place] [id number] NotePatient: Eren Merchant Procedure Summary Date: 03/05/24 Room / Location: [address] Operating Room Anesthesia Start: 1706 Anesthesia Stop: 1743 Procedure: CYSTOSCOPY, BILATERAL URETERAL STENT INSERTION (Bilateral: Urethra) Diagnosis: Hydronephrosis with urinary obstruction due to ureteral calculus Surgeons: Katherine Bowen MD Responsible Provider: Curt Bautista MD Anesthesia Type: general ASA Status: 2 Anesthesia Type: general Vitals Value Taken Time BP 90/50 03/05/24 1748 Temp 36.1 03/05/24 1748 Pulse 102 10/20/24 1748 Resp 16 03/05/24 1748 SpO2 100 % 03/05/24 1748 Vitals shown include unfiled device data. Anesthesia [...] discharged once all PACU criteria has been met.[facility]10-20-2024 Note90//Patient: Eren Merchant Procedure Summary Date: 03/05/24 Room / Location: [address] Operating Room Anesthesia Start: 1706 Anesthesia Stop: 1743 Procedure: CYSTOSCOPY, BILATERAL URETERAL STENT INSERTION (Bilateral: Urethra) Diagnosis: Hydronephrosis with urinary obstruction due to ureteral calculus Surgeons: Katherine Bowen MD Responsible Provider: Curt Bautista MD Anesthesia Type: general ASA Status: 2 Anesthesia Type: general Vitals Value Taken Time BP 90/50 03/05/24 1748 Temp 36.1 03/05/24 1748 Pulse 101 03/05/24 1747 Resp 16 03/05/24 1748 SpO2 100 % 03/05/24 1747 Vitals shown include unfiled device data. Anesthesia [...] start time until discharged from PACU ([id number]) [id number] Anesthesiology Smoking Abstinence The patient is [...] Allowed opportunity for questions and acknowledgement of understanding.[facility]10-20-2024 Nurse Note* Lala Souza RN - 03/05/2024 5:29 PM EDT MRI screening complete. Remote for bladder stimulator requested to be brought in alone with cards for Interstem and hot car charger. Patient said they could be brought in on Wednesday. [id number] NoteAirway Date/Time: 03/05/2024 5:11 PM Urgency: scheduled Airway not difficult General Information and Staff Patient location during procedure: Procedural Resident/HAT BLOCKING MACHINE OPERATOR: Jasmyne Cuba APRN - HAT BLOCKING MACHINE OPERATOR Performed: HAT BLOCKING MACHINE OPERATOR Indications and Patient Condition Indications for airway management: anesthesia and airway protection Sedation level: Asleep Preoxygenated: yes Patient position: sniffing Mask difficulty assessment: 0 - not attempted Final Airway Details Final airway type: supraglottic airway Successful airway: Igel Size 4 [facility] attempts at approach: [facility]* Op Note - Katherine Bowen MD - 03/05/2024 5:06 PM EDT Images from the original note were not included. Katherine Bowen MD 03/05/2024 at 5:49 PM UROLOGY OPERATIVE REPORT PATIENT NAME: Eren Merchant DATE OF : 1960 TODAY'S DATE: 03/05/2024 PreOp Dx:: bilateral ureteral calculus with uti PostOp Dx: Same Operation : cystoscopy bilateral stent placement Surgeon Katherine Bowen MD Assist Jhony [facility] Anesthesia:general lma Ebl: Drains 6fr X 24cmJJ bilateral Dowd , Specimen: Complications None; patient tolerated the procedure well. Findings: INDICATIONS: Eren Merchant , is a 63 y.o. female who presents with bilateral [facility]. [facility] Repeat image [...] masses or lesions. Left Then a 0.035 Appleton wire was advanced to the level of the kidney. A 6 fr x 24cmJJ stent was advancedover the wire through the cystoscope under fluoroscopic visualization. Once in position the wire was removed. A good curl was noted in the kidney and the bladder. Right Then a 0.035 Appleton wire was advanced to the level of the kidney. A 6fr x 24cmJJ stent was advanced over the wire through the cystoscope under fluoroscopic visualization. Once in position the wire wasremoved. A good curl was noted in the kidney and the bladder. The bladder was emptied and patient awoken from anesthesia. Katherine Bowen MD 03/05/24 5:49 PM XGIMI Phone: [phone] 548-739910-20-2024 Note* Op Note - Katherine Bowen MD [...] presents with bilateral hydronephrosis. [facility] Repeat image [...] masses or lesions. Left Then a 0.035 Appleton wire was advanced to the level of the kidney. A 6 fr x 24cmJJ stent was advancedover the wire through the cystoscope under fluoroscopic visualization. Once in position the wire was removed. A good curl was noted in the kidney and the bladder. Right Then a 0.035 Appleton wire was advanced to the level of the kidney. A 6fr x 24cmJJ stent was advanced over the wire through the cystoscope under fluoroscopic visualization. Once in position the wire wasremoved. A good curl was noted in the kidney and the bladder. The bladder was emptied and patient awoken from anesthesia. Katherine Bowen MD 03/05/24 5:49 PM GageInT XGIMI Phone: [phone] NotePatient: Eren Merhcant Procedure Information Date/Time: 03/05/24 1703 Procedure: CYSTOSCOPY WITH INSERTION URETERAL STENT (Bilateral: Urethra) Location: [address] Operating Room Surgeons: Katherine Bowen MD [...] abnormalities, anterior leads Equipment Requests: Additional [facility]sUniversity [facility]10-[facility]24 Consult note* Bogdan Pattno MD - 03/05/2024 12:28 PM EDTAssociated Order(s): [...] PATTON MD 03/05/24 12:28 PM - Page senior reservations agent resident with questions. Cosigned by Katherine Bowen MD at 03/05/2024 4:08 PM EDT Associated attestation - Katherine Bowen MD - 03/05/2024 4:08 PM EDT I reviewed history , exam and discussed with Resident. I have independently evaluated patient and agree with the evaluation and plan. Katherine Bowen MD 03/05/24 4:08 PM [id number] NoteHospitalist Progress Note 03/05/2024 Subjective: Admit Date: 03/04/2024 PCP: Priyanka Smith Room#: [id number] A BRIEF HOSPITAL COURSE: Eren is a [...] following - clinical improvement (more content not included)...[facility]10-20-2024 Consult note* Kayli Velasquez MD - 03/05/2024 9:37 AM EDT General Neurology Consult Patient: Eren Merchant Date of : 1960 Acct: [id number] PCP: Priyanka Smith Date of Admission: 03/04/2024 [...] recent episodes which prompted her transfer to [facility] for further workup. On 02/26/24, patient [...] office on 03/03/24. 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 Head trauma (no); 2. MASTER CHEF infections (no); 3. Family history of seizures (yes, brother); 4. Developmental delay (no); 5. Febrile seizures (no); 6. MASTER CHEF tumors (no); 7. MASTER CHEF vascular disease (no); 8. Significant medical history: CKD, ILD, current complicated UTI; 9. and early development: normal and early development Patient presented to [facility] and was found to be tachycardic. 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. As far as neurologic history: Patient [...] 2 times daily. 1000 mg in morning ppo247 at night per patient Historical Provider, predniSONE [...] Right: flexor Left: flexor Labs: Recent Labs 03/04/24 182703/05/24 0400 WBC 15.3* 12.4* HGB 12.0 12.3 HCT 37.2 38.2 PLT 421 466* Recent Labs 03/04/248 03/05/24 0400 NA 131* 133* K 4.1 4.2 CL 104 102 CO2 18* 17* BUN 58* 60* CREATININE 2.46* 2.67* CALCIUM 10.5* 11.3* Recent Labs 03/04/24 1828 AST 27 ALT 17 BILITOT 0.5 ALKPHOS 96 Recent Labs 03/04/24 1828 ALKPHOS 96 ALT 17 AST 27 BILITOT 0.5 Radiology: (personally reviewed) CT Head w/o contrast 03/04/24 ([facility]) Per report: no acute intracranial abn [...] documenting on the day of the visit. [facility]GIMI Phone: [phone] Consult note* Lexii Pablo MD - 03/05/2024 [...] and states has dysmotility. 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 and ended up having drug induced [...] cystitis 03/03/2024 ILD (interstitial lung disease) ([facility]) 03/25/2020 Lung nodules 02/12/2020 NSIP (nonspecific interstitial pneumonitis) ([facility]) 10/30/2022 Stage 3a chronic kidney disease (HCC) 01/12/2023 Post-menopausal bleeding 11/25/2018 Acquired hypothyroidism 03/04/2024 Resolved Ambulatory Problems Diagnosis Date Noted No Resolved Ambulatory Problems Past Medical History: Diagnosis Date Arthritis Cancer (CMS/HCC) ([facility]) Disease of thyroid gland Past Surgical History: [...] Resource Strain: High Risk (03/26/2020) Received from [facility] Overall Financial Resource Strain (CARDIA) Difficulty of Paying Living Expenses: Very hard Food Insecurity: No Food Insecurity (03/26/2020) Received from [facility] Hunger Vital Sign Worried About Running Out of Food in the Last Year: Never true Ran Out of Food in the Last Year: Never true Transportation Needs: No Transportation Needs (03/26/2020) Received from [facility] PRAPARE - Transportation Lack of Transportation (Medical): No Lack of Transportation (Non-Medical): No Physical Activity: Inactive (06/22/2023) Received from [facility] Exercise Vital Sign Days of Exercise per Week: 0 days Minutes of Exercise per Session: 0 min Stress: No Stress Concern Present (09/03/2019) Received from [facility] - Occupational Stress Questionnaire Feeling of Stress : Not at all Social Connections: Unknown (03/01/2020) Received from [facility] Social Connection and Isolation Panel [NHANES] Frequency of Communication with Friends and Family: Three times a week Frequency of Social Gatherings with Friends and Family: Three times a week Attends Anglican Services: Not on file Active Member of [...] doctor has moved and she has no sharepoint admin. Usually we ll treat for brad esophagitis empirically however with no recent EGD and concerning CT findings which is not available for review, needs further investigation. Her current acute issue is sepsis however, once her hemodynamics are improved, can perform an EGD to rule out any advanced lesion given the imaging findings. If negative, recommend she establishes with a local GI in [place] for ongoing care for dysmotility. Will follow the clinical course. No EGD planned for tomorrow. [facility] [employer] Work Phone: [phone] Plan of care note* Care Plan - [...] monitored and maintained or improved Outcome: Progressing [id number] Nurse Note* Bertha Zavala RN - 03/05/2024 3:24 AM EDT Patient had orthostatic vitals taken, blood pressure standing was 83/55. Rapid notified, told to reach out to doctor. Doctor notified and no further orders placed. Waited on transportation but told by nursing supervisor steffen house patient okay to take over in wheelchair. Patient taken to H6 in stable condition. [id number] History and physical note* Maurilio Groves MD - 03/04/2024 2:37 PM EDT Attending History and Physical Admit Date: 03/04/2024 PCP: Priyanka Smith CHIEF COMPLAINT: OSH transfer Reason for Admission: YVONNE Rodriguez 1960 is at [facility] ED. Pt has been in ED at [place] for pyelonephritis with possible neoplastic process. Hospitalist at [place] unable to care for pt at [place]. Pt cannot have contrast due to MANJIT (creat 3.1). [place] reached out to [facility] yesterday but still don't have a bed. Dr Jaguar Mckeon spoke with Dr. Noel Contreras here at [facility] and pt accepted to [facility] by Dr Contreras. History Obtained From: [...] day of admission. Ultimately pt presented to [facility] for chief complaint of seizure-like activity. Reported [...] cystitis. Given concern for malignancy, urology at [place] ED recommended transfer and medical admission for further workup. Prior to her transfer, ED started pt on fludrocortisone 0.1mg PO BID. Upon assessment at [facility], pt reiterated much of what was [...] Resource Strain: High Risk (03/26/2020) Received from [facility] Overall Financial Resource Strain (CARDIA) Difficulty of Paying Living Expenses: Very hard Food Insecurity: No Food Insecurity (03/26/2020) Received from [facility] Hunger Vital Sign Worried About Running Out of Food in the Last Year: Never true Ran Out of Food in the Last Year: Never true Transportation Needs: No Transportation Needs (03/26/2020) Received from [facility] PRAPARE - Transportation Lack of Transportation (Medical): No Lack of Transportation (Non-Medical): No Physical Activity: Inactive (06/22/2023) Received from [facility] Exercise Vital Sign Days of Exercise per Week: 0 days Minutes of Exercise per Session: 0 min Stress: No Stress Concern Present (09/03/2019) Received from [facility] [place] [facility] - Occupational Stress Questionnaire Feeling of Stress : Not at all Social Connections: Unknown (03/01/2020) Received from [facility] Social Connection and Isolation Panel [NHANES] Frequency of Communication with Friends and Family: Three times a week Frequency of Social Gatherings with Friends and Family: Three times a week Attends Anglican Services: Not on file Active Member of [...] notes. -On admission, pt was discussed with [facility] urology whom recommended repeat imaging if [...] Shelton Merchant Mobile Relation: Son Preferred language: Colombian Venture Capitalist needed? No Secondary Emergency Contact: Michael Merchant Mobile Relation: Significant Other Preferred language: Colombian Venture Capitalist needed? No ADVANCED CARE PLANNING Eren Herrera Shonda : 1960 Primary Care Physician: Priyanka Smith The patient and/or family/surrogate voluntarily agreed to participate in ACP services. Patient s cognitive capacity: AOX4 Code Status: [X] [FULL CODE - Continue all advanced life support: CPR,intubation,invasive procedures] [_] [DNR-CCA - DO NOT do CPR, intubation] [_] [DNR-HONEY PROCESSOR - Comfort care only] [_] DNR form [was/was not] signed Maurilio Groves MD [facility] [id number] NoteAttending History and Physical Admit Date: 03/04/2024 PCP: Priyanka Smith CHIEF COMPLAINT: OSH transfer Reason for Admission: Eren Henry, 1960 is at [facility] ED. Pt has been in ED at [place] for pyelonephritis with possible neoplastic process. Hospitalist at [place] unable to care for pt at [place]. Pt cannot have contrast due to MANJIT (creat 3.1). [place] reached out to [facility] yesterday but still don't have a bed. Dr Jaguar Mckeon spoke with Dr. oNel Contreras here at [facility] and pt accepted to [facility] by Dr Contreras. History Obtained From: [...] day of admission. Ultimately pt presented to [facility] for chief complaint of seizure-like activity. Reported [...] cystitis. Given concern for malignancy, urology at [place] ED recommended transfer and medical admission for further workup. Prior to her transfer, ED started pt on fludrocortisone 0.1mg PO BID. Upon assessment at [facility], pt reiterated much of what was [...] Social Determinants of H (more content not included)...[facility] 03-04-2024 NoteAttending History and Physical Admit Date: 03/04/2024 PCP: Priyanka Smith CHIEF COMPLAINT: OSH transfer Reason for Admission: Eren Henry, 1960 is at [facility] ED. Pt has been in ED at [place] for pyelonephritis with possible neoplastic process. Hospitalist at [place] unable to care for pt at [place]. Pt cannot have contrast due to MANJIT (creat 3.1). [place] reached out to [facility] yesterday but still don't have a bed. Dr Jaguar Mckeon spoke with Dr. Noel Contreras here at [facility] and pt accepted to [facility] by Dr Contreras. History Obtained From: [...] day of admission. Ultimately pt presented to [facility] for chief complaint of seizure-like activity. Reported [...] cystitis. Given concern for malignancy, urology at [place] ED recommended transfer and medical admission for further workup. Prior to her transfer, ED started pt on fludrocortisone 0.1mg PO BID. Upon assessment at [facility], pt reiterated much of what was [...] Social Determinants of H (more content not included)...[facility] 03-04-2024 History and physical note* Maurilio Groves MD - 03/04/2024 2:37 PM EDT Attending History and Physical Admit Date: 03/04/2024 PCP: Priyanka Smith CHIEF COMPLAINT: OSH transfer Reason for Admission: Eren Henry, 1960 is at [facility] ED. Pt has been in ED at [place] for pyelonephritis with possible neoplastic process. Hospitalist at [place] unable to care for pt at [place]. Pt cannot have contrast due to MANJIT (creat 3.1). [place] reached out to [facility] yesterday but still don't have a bed. Dr Jaguar Mckeon spoke with Dr. Noel Contreras here at [facility] and pt accepted to [facility] by Dr Contreras. History Obtained From: [...] day of admission. Ultimately pt presented to [facility] for chief complaint of seizure-like activity. Reported [...] cystitis. Given concern for malignancy, urology at [place] ED recommended transfer and medical admission for further workup. Prior to her transfer, ED started pt on fludrocortisone 0.1mg PO BID. Upon assessment at [facility], pt reiterated much of what was [...] Resource Strain: High Risk (03/26/2020) Received from [facility] Overall Financial Resource Strain (CARDIA) Difficulty of Paying Living Expenses: Very hard Food Insecurity: No Food Insecurity (03/26/2020) Received from [facility] Hunger Vital Sign Worried About Running Out of Food in the Last Year: Never true Ran Out of Food in the Last Year: Never true Transportation Needs: No Transportation Needs (03/26/2020) Received from [facility] PRAPARE - Transportation Lack of Transportation (Medical): No Lack of Transportation (Non-Medical): No Physical Activity: Inactive (06/22/2023) Received from [facility] Exercise Vital Sign Days of Exercise per Week: 0 days Minutes of Exercise per Session: 0 min Stress: No Stress Concern Present (09/03/2019) Received from [facility] [place] [facility] - Occupational Stress Questionnaire Feeling of Stress : Not at all Social Connections: Unknown (03/01/2020) Received from [facility] Social Connection and Isolation Panel [NHANES] Frequency of Communication with Friends and Family: Three times a week Frequency of Social Gatherings with Friends and Family: Three times a week Attends Anglican Services: Not on file Active Member of [...] notes. -On admission, pt was discussed with [facility] urology whom recommended repeat imaging if [...] Shelton Merchant Mobile Relation: Son Preferred language: Colombian Venture Capitalist needed? No Secondary Emergency Contact: Michael Merchant Mobile Relation: Significant Other Preferred language: Colombian Venture Capitalist needed? No ADVANCED CARE PLANNING Eren Merchant : 1960 Primary Care Physician: Priyanka Smith The patient and/or family/surrogate voluntarily agreed to participate in ACP services. Patient s cognitive capacity: AOX4 Code Status: [X] [FULL CODE - Continue all advanced life support: CPR,intubation,invasive procedures] [_] [DNR-CCA - DO NOT do CPR, intubation] [_] [DNR-HONEY PROCESSOR - Comfort care only] [_] DNR form [was/was not] signed Maurilio Groves MD Division of Hospitalist Medicine [facility] documented in this [facility]10-18-2024 Note* Addendum Note - Bogdan Roberts MD - 03/03/2024 5:03 PM EDTAddended by: BOGDAN ROBERTS on: 03/03/2024 05:03 PM Modules accepted: Orders [facility]10-18-2024 Miscellaneous Notes* Addendum Note - Bogdan Roberts MD - 03/03/2024 5:03 PM EDTAddended by: BOGDAN ROBERTS on: 03/03/2024 05:03 PM Modules accepted: Orders documented in this encounterBarnesville Hospital10-18-2024 History of Present illness Narrative* Carmen Randolph, RT(R) - 03/03/2024 12:30 PM EDT Radiology [...] PATIENT PRESENTS WITH AN IMPLANTABLE OR ATTACHED STERILE PREPARATION TECHNICIAN: No RADIOLOGY DEPARTMENT: General X-ray: Exam(s) Completed: Chest X-Ray PERIPHERAL IV DATA: Not applicable SIGNED BY: RT Mathieu(R) March 03, 2024 12:38 PM documented in this encounterBarnesville Hospital10-18-2024 NoteAult[facility]10-18-2024 Instructions* Patient Instructions* Wiley Benitez MD - 03/03/2024 11:11 AM EDT Discontinue the elavil (amitriptyline) for now - we will taper it down. Take 50mg for 4-5 days, then take 25mg for 4-5 days, then stop. documented in this encounterBarnesville Hospital10-18-2024 History of Present illness Narrative* Wiley Benitez [...] PFSH obtained by others. Wiley Benitez MD Block Sealer offered: Patient accepts, visit chaperoned by Samreen [...] recommendation and said she would go to [place] [facility]. Follow up 6-8 weeks for phone visit; unable to access zoom for video visit Wiley Benitez MD documented in this encounterBarnesville Hospital10-18-2024 NoteAultman [facility]10-16-2024 Instructions* Patient Instructions* Jacqueline Valadez APRN.CNP [...] pressure check if needed. 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 Jacqueline Valadez APRN.DIRECTOR OF FIELD COORDINATION This note was partially generated using Instapio voice recognition system. Note was reviewed for accuracy. There may be minor misspellings or grammar miscues with Instapio voice recognition. documented in this encounterBarnesville Hospital10-16-2024 NoteAultman [facility]09-18-2024 Telephone encounter Note* Telephone Encounter - Mariam Woods LPN - 02/02/2024 6:50 PM EDT Patient notified of results, verbalizes understanding of instructions. Mariam Woods LPN [facility]09-18-2024 Miscellaneous Notes* Telephone Encounter - Mariam Woods LPN - 02/02/2024 6:50 PM EDT Patient notified of results, verbalizes understanding of instructions. Mariam Woods LPN * Telephone Encounter - Jacqueline Valadez APRN.SAMIR - 02/02/2024 6:41 PM EDT Can you [...] you. Jacqueline Valadez APRN.SAMIR documented in this encounterBarnesville Hospital09-18-2024 Telephone encounter Note * Telephone Encounter - Jacqueline Valadez APRN.SAMIR - 02/02/2024 6:41 PM EDT Can you [...] in June. Thank you. Jacqueline Valadez APRN.SAMIR [facility]09-16-2024 Telephone encounter Note* Telephone Encounter - German Grubbs APRN.CNP - 01/31/2024 3:27 PM EDT Chart reviewed. New rx sent. German Grubbs APRN.CNP [facility]09-16-2024 Miscellaneous Notes* Telephone Encounter - German Grubbs APRN.CNP - 01/31/2024 3:27 PM EDT Chart reviewed. New rx sent. German Grubbs APRN.CNP * Telephone Encounter - Noa Schmidt - 01/31/2024 2:48 PM EDT [facility] 01/11/24: Impression: Eren Merchant is a 63 [...] Wiley Benitez MD Message routed to Urogyn BOOK RETAILER requesting new script for Amitriptyline. documented in this encounterBarnesville Hospital09-16-2024 Telephone encounter Note * Telephone Encounter - Noa Schmidt E - 01/31/2024 2:48 PM EDT [facility] 01/11/24: Impression: Eren Merchant is a 63 [...] Wiley Benitez MD Message routed to Urogyn BOOK RETAILER requesting new script for Amitriptyline. [facility]08-29-2024 Instructions* Patient Instructions* Bogdan Roberts MD - [...] or you can send a message through [email or web address]. You can also now schedule and select appointments through [email or web address]. Bogdan Roberts MD documented in this encounterBarnesville Hospital08-29-2024 History of Present illness Narrative* Bogdan Roberts MD - 01/13/2024 2:07 PM EDT [facility] - NEW PATIENT EVALUATION Referring Provider: Jacqueline Valadez [address] [facility] [id number] Primary Care Provider: Priyanka Smith MD [address] [facility] [id number] Dear Jacqueline Valadez: Thank you for referring [...] and during activities. She also experiences involuntary oiho-xxj-iqebm movements of her mouth and tongue, which [...] Sincerely, Bogdan Roberts MD documented in this encounterBarnesville Hospital08-27-2024 Instructions* Patient Instructions* Wiley Benitez MD - [...] needed for 2-3 days documented in this encounterBarnesville Hospital08-27-2024 History of Present illness Narrative* Wiley Benitez MD - 01/11/2024 11:00 AM EDT Female Pelvic Medicine & Reconstructive Surgery Follow-Up Eren M Shonda is a 63 year old female, who [...] no Pain: no Abnormal Vaginal Discharge: no REFERENCE TEST CLERK HISTORY: Last pap: Date:11/2023 (stenotic cervix) ; Last mammogram: Her last mammogram was 08/2023. She has no history of an abnormal mammogram LMP: Patient's last menstrual period was 01/07/2011.; Menopause post : Menstrual history: NA; Deliveries: n/a I have confirmed and edited as necessary, the PFSH obtained by others. Wiley Benitez MD Block Sealer offered: Patient declines. OBJECTIVE: LMP 01/07/2011 General: [...] which included preparing to see the patient, hyim-ms-mwsb patient care, completing clinical documentation, obtaining and/or reviewing separately obtained history, performing a medically appropriate examination, counseling and educating the pat ient/family/caregiver, and ordering medications, tests, or procedures. documented in this encounterBarnesville Hospital08-13-2024 Instructions* Patient Instructions* Jacqueline Valadez APRN.DIRECTOR OF FIELD COORDINATION - 12/28/2023 7:25 AM EDT Get fasting labs completed in 1 month, no food 10-12 hours prior, may have black coffee and water Continue to take all medication as prescribed. Keep scheduled appointments with specialists Watch salt and processed foods in the diet. Stay well hydrated Follow up in 6 months or sooner pending repeat labs. documented in this encounterBarnesville Hospital08-13-2024 History of Present illness Narrative* Jacqueline Valadez APRN.DIRECTOR OF FIELD COORDINATION - 12/28/2023 7:20 AM EDT This is [...] history of kidney stones. Pap: Follows with REFERENCE TEST CLERK, refers difficulty collecting pap recently. Mammogram: w/jenn, [...] Comment: Added automatically from request for surgery [id number] 09/05/2014: Rectal bleed No date: Thymoma Comment: [...] Tubal ligation 12/23/2017: LX PARTIAL COLECTOMY Comment: [facility] lap lysis of adhesions, left oopherectomy, right salpinoopherectomy, left salpingectomy, redo lap sigmoid colectomy w/ressection, lap mobilization of splenic flexure, lap appendectomy 10/2008: PAST SURGICAL HISTORY OF Comment: T9-L1 fusion, Dr. Lemon 10/24/2009: PAST SURGICAL HISTORY OF Comment: Removed T9-L1, 2 rods and 8 screws, Dr Lemon 11/2018: PAST SURGICAL HISTORY OF Comment: Hysteroscopy with D&C and Polypectomy with Burroughs and NephUlympix Truclear device 07/11/2018: PICC LINE INSERT/CONSULT Comment: [...] discussed and patient voices understanding. Jacqueline Valadez APRN.DIRECTOR OF FIELD COORDINATION This note was partially generated using Instapio voice recognition system. Note was reviewed for accuracy. There may be minor misspellings or grammar miscues with Instapio voice recognition. 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 Dr. Cueto Dr. Benitez Dr. Constantino Dr. Cerda Dr. Brumfield Dr. Mcqueen Dr. Foy Dr. Mg Teri Roberts, DIRECTOR OF FIELD COORDINATION Tariq Brooks, DIRECTOR OF FIELD COORDINATION German Grubbs, DIRECTOR OF FIELD COORDINATION Radha Roberts, DIRECTOR OF FIELD COORDINATION Lala Ruiz, DIRECTOR OF FIELD COORDINATION Lucina Estrada, DIRECTOR OF FIELD COORDINATION Please DO NOT use MyChart for procedure concerns. documented in this encounterBarnesville Hospital07-17-2024 Nurse Note* Lacy Ruiz - 12/01/2023 2:54 PM EDT Instruction sheet given and reviewed: Yes Patient verbalizes understanding: Yes Post- procedure Vital Signs: B/P: 152/92 P: R:18 Pain Ratin on a scale of 0 to 10. Specimens: not indicated. Nurse: Lacy Ruiz [facility]07-17-2024 Nurse Note* Lacy Ruiz - 12/01/2023 2:54 PM EDT Instruction sheet given and reviewed: Yes Patient verbalizes understanding: Yes Post- procedure Vital Signs: B/P: 152/92 P: R:18 Pain Ratin on a scale of 0 to 10. Specimens: not indicated. Nurse: Lacy Ruiz documented in this encounterBarnesville Hospital07-17-2024 History of Present illness Narrative* Wiley Benitez MD - 12/01/2023 1:30 PM EDT Eren Merchant presents today for a intradetrusor Botox injections. [...] Video-assisted cystourethroscopy was performed using a 19 [place]an 30 degree cystoscope with saline infusion. The [...] OR. Wiley Benitez MD documented in this encounterBarnesville Hospital07-15-2024 Note* Addendum Note - Claudia Floyd MA - 11/29/2023 11:01 AM EDTAddended by: CLAUDIA FLOYD on: 11/29/2023 11:01 AM Modules accepted: Orders [facility]07-15-[facility] Miscellaneous Notes* Addendum Note - Claudia Floyd MA - 11/29/2023 11:01 AM EDTAddended by: CLAUDIA FLOYD on: 11/29/2023 11:01 AM Modules accepted: Orders documented in this encounterBarnesville Hospital07-15-2024 History of Present illness Narrative* Lauryn Gonzalez, RT(R) - 11/29/2023 9:00 AM EDT Radiology [...] PATIENT PRESENTS WITH AN IMPLANTABLE OR ATTACHED STERILE PREPARATION TECHNICIAN: No RADIOLOGY DEPARTMENT: General X-ray: Exam(s) Completed: Abdomen X-Ray: Abdomen PERIPHERAL IV DATA: Not applicable SIGNED BY: RT Eloy(R) November 29, 2023 7:50 AM documented in this encounterBarnesville Hospital07-15-2024 History of Present illness Narrative* ePterCharis umaña APRN.[facility] - 11/29/2023 7:59 AM EDT Eren is [...] Multiple0 Live Births0 Comment: 2 vaginal deliveries Chief Gauger History LMP: 01/07/2011, Postmenopausal Age at Menarche: Age at First : Age at Menopause: Chief Gauger History Comments: Sexual Activity: Yes; Male Contraception: Tubal Ligation PAST MEDICAL HISTORY Diagnosis Date 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 Seen by URO/REFERENCE TEST CLERK- currently receiving botox in bladder/ taking oral [...] needed Charis Lopez APRN.CNM documented in this encounterBarnesville Hospital07-08-2024 Telephone encounter Note * Telephone Encounter - Dee Long - 11/22/2023 10:28 AM EDT Called and left vox Patient is scheduled December 21, 2023 at 2pmroman kub prior Thank you Dee [facility]07-08-2024 Miscellaneous Notes* Telephone Encounter - Dee Long - 11/22/2023 10:28 AM EDT Called and left vox Patient is scheduled December 21, 2023 at 2pm, [place] location, kub prior Thank you Dee * Telephone Encounter - Mathew Yang Jr., MD - 11/22/2023 8:45 AM EDT [facility] or 11/22/23 Fu with me 4 weeks Kub prior ordered documented in this encounterBarnesville Hospital07-08-2024 Telephone encounter Note * Telephone Encounter - Mathew Yang Jr., MD - 11/22/2023 8:45 AM EDT [facility] or 11/22/23 Fu with me 4 weeks Kub prior ordered [facility]07-08-2024 NoteHNO ID: [id number] Author: SPENSER GARDUNO APRN.HAT BLOCKING MACHINE OPERATOR Service: ? Author Type: Nurse Front Of House Manager Type: Anesthesia Procedure Notes Filed: 11/22/2023 08:18 Note Text: ANESTHESIOLOGY PROCEDURE NOTE PIV General Information Procedure Start Time/Medication Administration: 11/22/2023 7:55 AM Procedure End Time: 11/22/2023 7:55 AM Patient location: Pre surgery. Staffing HAT BLOCKING MACHINE OPERATOR: Spenser Garduno APRN.HAT BLOCKING MACHINE OPERATOR Performed by: HAT BLOCKING MACHINE OPERATOR Preparation Sterility Preparation: hand hygiene performed prior to procedure, surgical cap used, skin prep agent completely dried prior to procedure Sterility Technique Not Completely Performed Due to Extreme Emergency: No Site Prep: Chloraprep Procedure Details Indication: need for IV access Needle Size/Type: 20 gauge angiocath Orientation: Right Location: Antecubital Imaging Guidance Used: No SIGNATURE: Spenser Garduno APRN.HAT BLOCKING MACHINE OPERATOR PATIENT NAME: Eren Merchant DATE: November 22, 2023 TIME: 8:17 AM CSN: [id number] NoteHNO ID: [id number] Author: SPENSER GARDUNO APRN.HAT BLOCKING MACHINE OPERATOR Service: ? Author Type: Nurse Front Of House Manager Type: Anesthesia Procedure Notes Filed: 11/22/2023 08:17 Note Text: ANESTHESIOLOGY PROCEDURE NOTE Airway General Information Procedure Start Time/Medication Administration: 11/22/2023 8:10 AM Procedure End Time: 11/22/2023 8:10 AM Patient location during procedure: OR Timeout Performed Pre-procedure: timeout performed Consent Obtained: Yes Patient identity confirmed: arm band and patient Staffing HAT BLOCKING MACHINE OPERATOR: Spenser Garduno APRN.HAT BLOCKING MACHINE OPERATOR Performed by: CARLYN Indications and Patient Condition Indications for airway management: anesthesia Preoxygenated: yes anesthesia circuit Patient position: sniffing Method: asleep Cricoid Pressure: No Manual In-Line Stabilization: No Difficult Mask: No Final Airway Details Final airway type: supraglottic airway Number of attempts at approach: 1 Final Supraglottic Airway: i-gel Size 4 Seal Adequate: yes SIGNATURE: Spenser Garduno APRN.HAT BLOCKING MACHINE OPERATOR PATIENT NAME: Eren Merchant DATE: November 22, 2023 TIME: 8:17 AM CSN: [id number]06-28-[facility] Telephone encounter Note* Telephone Encounter - Lacy Ruiz - 11/12/2023 2:34 PM EDT Emely MARTINEZ from [facility] re: Approved Botox 200units Botox approved every 90 days during 11/04/23-11/02/24 Approval number [id number] Will route to care coordinators. See encounter 10/20/23 [facility]06-28-20[facility] Miscellaneous Notes* Telephone Encounter - Lacy Ruiz - 11/12/2023 2:34 PM EDT Emely MARTINEZ from [facility] re: Approved Botox 200units Botox approved every 90 days during 11/04/23-11/02/24 Approval number [id number] Will route to care coordinators. See encounter 10/20/23 documented in this encounterBarnesville Hospital06-26-2024 Telephone encounter Note * Telephone Encounter - Ciaran Sandoval (Pharmacy Biller) - 11/10/2023 9:30 AM EDT === PHARMACY [...] 11/10/2023 Courtesy page sent (PRN): No APPEAL: [id number] FAX: [phone] PHONE: [phone] [facility]06-26-20[facility] Miscellaneous Notes* Telephone Encounter - Lori MannPharmacy LeidyCiaran barnett - 11/10/2023 9:30 AM EDT === PHARMACY [...] 11/10/2023 Courtesy page sent (PRN): No APPEAL: [id number] FAX: [phone] PHONE: [phone] documented in this encounterBarnesville Hospital06-25-2024 History of Present illness Narrative* Mathew Yang [...] Date Value 05/22/2022 Negative 03/22/2020 Negative Specific [place], Ur (no units) Date Value 05/22/2022 1.010 [...] 08/05/2017 Added automatically from request for surgery [id number] Rectal bleed 09/05/2014 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 Will wait to get 200 units approved. See TE on 10/19. Seema Calle RN November 02, 2023 10:53 AM [facility]06-18-[facility] Miscellaneous Notes* Telephone Encounter - Seema Calle RN - 11/02/2023 10:53 AM EDT Cancelled appt for 11/02. Will wait to get 200 units approved. See TE on 10/19. Seema Calle RN November 02, 2023 10:53 AM * Telephone Encounter - Ciaran Sandoval (Pharmacy Biller) - 11/02/2023 10:00 AM EDT === PHARMACY TEAM ==== ADDITIONAL INFORMATION NEEDED/REQUESTED Case Submitted: No Request Type: Provider Date of Service: 11/03/2023 Additional Information Needed: PER POLICY MAX DOSE 100 UNITS (HOW WOULD YOU LIKE TO PROCEED) Request from Payor by: N/A Email Sent to: ENCOUNTER-WILEY BENITEZ Requested Clinicals/Information Sent: N/A documented in this encounterBarnesville Hospital06-18-2024 Telephone encounter Note * Telephone Encounter - Lori MnanPharmacy Ciaran Taylor - 11/02/2023 10:00 AM EDT === PHARMACY TEAM ==== ADDITIONAL INFORMATION NEEDED/REQUESTED Case Submitted: No Request Type: Provider Date of Service: 11/03/2023 Additional Information Needed: PER POLICY MAX DOSE 100 UNITS (HOW WOULD YOU LIKE TO PROCEED) Request from Payor by: N/A Email Sent to: ENCOUNTER-WILEY BENITEZ Requested Clinicals/Information Sent: N/A [facility]06-18-[facility] History of Present illness Narrative* Reef Cara [...] PATIENT PRESENTS WITH AN IMPLANTABLE OR ATTACHED STERILE PREPARATION TECHNICIAN: No RADIOLOGY DEPARTMENT: CT; Exam(s) Completed: Chest PERIPHERAL IV DATA: Not applicable SIGNED BY: RT Jonathon(R) November 02, 2023 1:12 PM documented in this encounterBarnesville Hospital06-05-2024 Telephone encounter Note * Telephone Encounter - Seema Calle RN - 10/20/2023 9:37 AM EDT Botox referral received for 100 units -- 1st injection. Auth did not populate. Entered auth. Will monitor status. PPX antibiotics: Macrobid sent 10/19 to [facility] in [place] Blood thinners: asa 81 mg LV: 10/06 with Barley Plan: 1. Overactive bladder - Continue to adjust interstim based off medtronic help desk representative's recommendations - Discussed r/b/a of trospium, including possible side effects of dry eye, dry mouth, constipation,cognitive side effects when used intermediate teacher. CrCl calculated to be 65 mL/min. Rx sent. If no improvement in 4 weeks, patient to send [email or web address] message for alternative medication option. Is considering [...] reschedule for a later date. Pt will roll picker Macrobid, and confirmed he is just on asa 81mg. Seema Calle RN October 20, 2023 9:50 AM [facility]06-05-20[facility] Miscellaneous Notes* Telephone Encounter - Seema Calle RN - 10/20/2023 9:37 AM EDT Botox referral received for 100 units -- 1st injection. Auth did not populate. Entered auth. Will monitor status. PPX antibiotics: Macrobid sent 10/19 to [facility] in [place] Blood thinners: asa 81 mg LV: 10/06 with Barley Plan: 1. Overactive bladder - Continue to adjust interstim based off medtronic help desk representative's recommendations - Discussed r/b/a of trospium, including possible side effects of dry eye, dry mouth, constipation,cognitive side effects when used intermediate teacher. CrCl calculated to be 65 mL/min. Rx sent. If no improvement in 4 weeks, patient to send [email or web address] message for alternative medication option. Is considering [...] reschedule for a later date. Pt will roll picker Macrobid, and confirmed he is just on asa 81mg. Seema Calle RN October 20, 2023 9:50 AM documented in this encounterBarnesville Hospital05-30-2024 Telephone encounter Note * Telephone Encounter - Susana Bhardwaj MA - 10/14/2023 9:57 AM EDT Pt willing to see Neuro at another location. Advised her to call in and schedule. Susana Bhardwaj MA [facility]05-30-2024 Miscellaneous Notes* Telephone Encounter - Susana Bhardwaj MA - 10/14/2023 9:57 AM EDT Pt willing to see Neuro at another location. Advised her to call in and schedule. Susana Bhardwaj MA * Telephone Encounter - Susana Bhardwaj MA - 10/14/2023 8:57 AM EDT Awaiting pt reply to additional questions. Susana Bhardwaj MA documented in this encounterBarnesville Hospital05-30-2024 Telephone encounter Note * Telephone Encounter - Susana Bhardwaj MA - 10/14/2023 8:57 AM EDT Awaiting pt reply to additional questions. Susana Bhardwaj MA [facility]05-30-2024 Instructions* Patient Instructions* Jacqueline Valadez APRN.CNP - 10/14/2023 7:13 AM EDT Start Propanolol 10 mg, take 1 tablet daily for 1 week then increase to twice daily Recommend consult with Neurology, Dr. Montero Follow up in 1 month if needed. 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 Note was reviewed for accuracy. There may be minor misspellings or grammar miscues with Instapio voice recognition. documented in this encounterBarnesville Hospital05-23-2024 Instructions* Patient Instructions* Tariq Brooks APRN.CNP - 10/07/2023 9:12 AM EDT Pelvic Floor Physical Therapy Call [phone] for an appointment for pelvic floor physical therapy. [email or web address] [facility] -- C Building -- [place] [place] -- [facility] [place], [place] -- [facility] -- [facility] Administrative [place], [address] [place] -- [facility] -- [facility] -- [facility] [place] -- [place] [facility] -- [facility] -- [facility] [place] -- [facility], [facility] -- [facility] -- [facility], [place] [facility] [place] -- [facility], [place] -- [facility], [facility] --[facility] -- [facility] [place] -- [facility] [place] -- [facility] documented in this encounterBarnesville Hospital05-23-2024 History of Present illness Narrative* Tariq Brooks APRN.DIRECTOR OF FIELD COORDINATION - 10/07/2023 8:30 AM EDT Female Pelvic Medicine & Reconstructive Surgery Follow-Up Eren Merchant is a 63 year old female, who presents for a follow-up of vulvar burning, urinary frequency. History since last visit: Has been applying vaginal estrogen cream with applicator 3x/week, states vulvar burning has significantly improved. Still has occasional burning. Spoke with [employer], was put on program 6 at 1.4 [...] the PFSH obtained by others. Tariq Brooks APRN.DIRECTOR OF FIELD COORDINATION Block Sealer offered: Patient declines. OBJECTIVE: LMP 01/07/2011 General: [...] Continue to adjust interstim based off medtronic help desk representative's recommendations - Discussed r/b/a of trospium, including possible side effects of dry eye, dry mouth, constipation,cognitive side effects when used fdc. CrCl calculated to be 65 mL/min. Rx sent. If no improvement in 4 weeks, patient to send [email or web address] message for alternative medication option. Is considering [...] Making Level: 4 - Moderate Tariq Brooks APRN.DIRECTOR OF FIELD COORDINATION documented in this encounterBarnesville Hospital05-02-2024 History of Present illness Narrative* Karen Alcantara MD - 09/16/2023 1:15 PM EDT Images from the original note were not included. . [facility] [place] Note Patient name: Eren Merchant PCP: Priyanka [...] CellCept. 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 [email or web address] message sent to aid in communication Total Time Spent: 5-10 minutes Tariq Brooks APRN.CNP documented in this encounterBarnesville Hospital04-18-2024 History of Present illness Narrative* Tariq Brooks [...] the PFSH obtained by others. Tariq Brooks APRN.DIRECTOR OF FIELD COORDINATION Block Sealer offered: Patient declines. OBJECTIVE: BP 102/72 LMP [...] Making Level: 4 - Moderate Tariq Brooks APRN.DIRECTOR OF FIELD COORDINATION documented in this encounterBarnesville Hospital04-17-2024 Miscellaneous Notes* Telephone Encounter - Hilary Sandoval RN - 09/01/2023 9:28 AM EDT Refill request received via [employer]. Last seen 11/26/21. Is scheduled for upcoming annual exam on 11/29/23. Hilary Sandoval RN documented in this encounterBarnesville Hospital04-04-2024 Miscellaneous Notes* Letter - Kaleb Cosby - 08/19/2023 5:59 PM EDT August 20, 2023 PID: [id number] Eren Merchant [address] [place] [address] Dear Ms. Merchant, We are pleased to [...] report will be [facility] as part of your permanent medical record and are available for your continuing care. Thank you for allowing us to help in meeting your health care needs. Sincerely, Dr. Ruiz Interpreting Radiologist [facility] (Normal over 40) documented in this encounterBarnesville Hospital04-03-2024 History of Present illness Narrative* Chiquita Cook Mammo Tech - 08/18/2023 9:10 AM EDT [...] PATIENT PRESENTS WITH AN IMPLANTABLE OR ATTACHED STERILE PREPARATION TECHNICIAN: No RADIOLOGY DEPARTMENT: Mammography PERIPHERAL IV DATA: Not applicable SIGNED BY: Marissa Rivera August 18, 2023 9:15 AM documented in this encounterBarnesville Hospital03-25-2024 Miscellaneous Notes* Telephone Encounter - Priyanka Smith MD - 08/09/2023 12:14 PM EDT Order filed Priyanka Smith MD * Telephone Encounter - Tess Persaud MA - 08/06/2023 4:35 PM EDT Pended orders. Previous order was ordered by REFERENCE TEST CLERK. Tess Persaud Ma, * Telephone Encounter - Jacqueline Bishop - 08/06/2023 4:00 PM EDT Patient scheduled mammogram screening with available order. Patient previously had mammogram screening with JENN. Please resubmit the appropriate order if necessary. documented in this encounterBarnesville Hospital03-25-2024 Miscellaneous Notes* Telephone Encounter - Karla Stroud [...] advise. Karla Stroud MA documented in this encounterBarnesville Hospital02-06-2024 History of Present illness Narrative* Priyanka Smith [...] Alcantara - Pulmonary Dr. Mg/Tariq Brooks - REFERENCE TEST CLERK Dr. Yang - Urology Medical/Family history review [...] 08/05/2017 Added automatically from request for surgery [id number] Rectal bleed 09/05/2014 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, Masaoka [...] UNI/BI Tubal ligation LX PARTIAL COLECTOMY 12/23/2017 [facility] lap lysis of adhesions, left [...] Past Histories independently gathered by the clinical customer support coordinator and the remaining scribed note accurately describes [...] AM. Tess Persaud Ma documented in this encounterBarnesville Hospital10-16-2023 History of Present illness Narrative* Clementina Zaldivar LPN - 03/01/2023 10:01 AM EDT Patient presents for TDAP vaccine. Denies any problems at this time. Tolerated injection well. Clementina Zaldivar LPN documented in this encounterBarnesville Hospital10-12-2023 History of Present illness Narrative* Tariq Brooks APRN.SAMIR - 02/25/2023 10:30 AM EDT Female Pelvic [...] you received about pain medications helpful? Yes Block Sealer offered:Patient declines OBJECTIVE: [facility] 01/07/2011 General: Well appearing, alert, in no [...] antibiotics Tariq Brooks APRN.SAMIR documented in this encounterBarnesville Hospital09-25-2023 Miscellaneous Notes* Telephone Encounter - Cara Juares LPN - 02/08/2023 4:05 PM EDT Patient phones requesting refills as follows: Requested Prescriptions Pending Prescriptions Disp Refills predniSONE (DELTASONE) 5 mg tablet Sig: Take 1 tablet by mouth once daily. Please review and advise. Cara Juares LPN documented in this encounterBarnesville Hospital09-01-2023 History of Present illness Narrative* John Mg [...] OR. John Mg MD documented in this encounterBarnesville Hospital08-29-2023 Instructions* Patient Instructions* Abdulkadir Amaya PA-C - 01/12/2023 10:58 AM EDT PATIENT PREOPERATIVE INSTRUCTIONS [facility]: [phone] -- [address] [facility] [address]. Please read below carefully for your personalized [...] Procedures: - YOU MUST HAVE A RESPONSIBLE AUTOMOTIVE GENERAL SALES MANAGER TAKE YOU HOME. A APPAREL PATTERN MAKER OR COUNTING MACHINE OPERATOR CANNOT BE MADE A RESPONSIBLE AUTOMOTIVE GENERAL SALES MANAGER. - We recommend that a responsible person [...] Advance Directive, please fax a copy to [phone] or email to for it to be [...] your chart that day. documented in this encounterBarnesville Hospital08-29-2023 History and physical note * Abdulkadir Amaya [...] to managesymptoms. Procedure scheduled on 01/28/2023 at [place]. REVIEW OF SYSTEMS: General: No weight loss, malaise or fevers. Neurological: No history of TIA's, stroke, MASTER CHEF tumor, impaired sensorium, hemiplegia, paraplegia orquadraplegia. No [...] arrhythmia, atrial fibrillation, CHF, hyperlipidemia, hypertension, recent [place] and murmur/valvular heart disease. GI: +Esophageal dysmotility [...] 08/05/2017 Added automatically from request for surgery [id number] Rectal bleed 09/05/2014 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, Masaoka [...] UNI/BI Tubal ligation LX PARTIAL COLECTOMY 12/23/2017 [facility] lap lysis of adhesions, left [...] 10:38 AM PAGER/CONTACT #: documented in this encounterBarnesville Hospital08-08-2023 History of Present illness Narrative* Priyanka Smith MD - 12/22/2022 9:20 AM EDT 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 Patient presents with: F/U 6 Month HPI Eren Merchant is a 62 year old female who presents here today for a 6 month follow up. Pt here today for a 6 month follow up. 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 GI/Uro - Denies any stomach or bowel issues. Follows with Urology, Dr. Yang and Uro/REFERENCE TEST CLERK, Dr. Mg. Hx of acute cystitis, gross [...] 08/05/2017 Added automatically from request for surgery [id number] Rectal bleed 09/05/2014 Thymoma Resected 07/14/17, Masaoka [...] UNI/BI Tubal ligation LX PARTIAL COLECTOMY 12/23/2017 [facility] lap lysis of adhesions, left [...] 11/16/2022 2.67 FEV1/FVC PRE (%) 11/16/2022 86 QNU67-31% PRE (L/S) 11/16/2022 3.85 PEF PRE (L/S) [...] 11/02/2022 2.47 Monocytes % 11/02/2022 10.6 Abs Clinton 11/02/2022 1.08 (H) Eosinophils % 11/02/2022 0.2 [...] 596.51, ICD10: N32.81 - Cont f/u with REFERENCE TEST CLERK 7. Low sodium levels - ICD9: 276.1, ICD10: E87.1 - Stable monitor labs 8. 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 I agree with the 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, ROS, and Past Histories independently gathered by the clinical customer support coordinator and the remaining scribed note accurately describes [...] AM. Tess Persaud Ma documented in this encounterBarnesville Hospital07-13-2023 Miscellaneous Notes* Telephone Encounter - Susana Bhardwaj Ma - 11/26/2022 2:54 PM EDT Pt notified of results via Qteroshart. Susana Bhardwaj Ma * Telephone Encounter - Jacqueline Valadez APRN.DIRECTOR OF FIELD COORDINATION - 11/26/2022 2:23 PM EDT Can you [...] for 14 days. Authorizing Provider: JACQUELINE VALADEZ APRN.DIRECTOR OF FIELD COORDINATION * Telephone Encounter - Mariam Woods LPN [...] advise. Mariam Woods LPN documented in this encounterBarnesville Hospital07-03-2023 History of Present illness Narrative* DM Zuñiga - 11/16/2022 10:02 AM EDT PULM FUNCTION SMARTBLOCK: Provider: Karen Alcantara MD Assisting Tech: DM Zuñiga Spirometry: 1 DLCO: 1 LV - Box: 1 documented in this encounterBarnesville Hospital06-23-2023 History of Present illness Narrative* John Mg MD - 11/06/2022 2:56 PM EDT Order placed for Intersim generator and lead placement in the [facility] OR on January 28. documented in this encounterBarnesville Hospital06-20-2023 History of Present illness Narrative* Mathew Yang [...] Date Value 05/22/2022 Negative 03/22/2020 Negative Specific [place], Ur (no units) Date Value 05/22/2022 1.010 [...] of uterus Malnutrition of moderate degree ([facility]) 06/15/2018 Obesity, Class I, BMI 30-34.9 E66.9 09/03/2017 Osteopenia Overactive bladder Primary osteoarthritis of first carpometacarpal joint of right hand 08/05/2017 Added automatically from request for surgery [id number] Rectal bleed 09/05/2014 Thymoma Resected 07/14/17, Masaoka [...] Yang Jr, MD 11/03/2022 documented in this encounterBarnesville Hospital06-13-2023 History of Present illness Narrative* Cara Connors RT(R) - 10/27/2022 8:40 AM EDT Radiology [...] 27, 2022 4:15 PM documented in this encounterBarnesville Hospital06-01-2023 Miscellaneous Notes* Telephone Encounter - Gerri MARIN - 10/15/2022 4:01 PM EDT Images from the original note were not included. Lm to call back and schedule. MD Eamon Rivas Jr. [facility] Clerical Pool Needs appt to discuss test results documented in this encounterBarnesville Hospital06-01-2023 NoteHNO ID: [id number] Author: CELIA Vee Service: Radiology Author Type: [...] safety can be found using this link: [email or web address] SIGNATURE: CELIA Vee PATIENT NAME: Eren Merchant DATE: October 15, 2022 TIME: 11:07 AM PAGER[facility]CONTACT #[facility] [id number] History of Present illness Narrative* CELIA Vee [...] 8:30 PATIENT DISCHARGED TO: Ambulatory patient, left [place] department area. A Diagnostic radioactive procedure has taken place, with no further precautions necessary other than routine body substance precautions. More information regarding radiation safety can be found usingthis link: [email or web address] SIGNATURE: CELIA Vee PATIENT NAME: Eren Merchant DATE: October 15, 2022 TIME: 11:07 AM PAGER/CONTACT #: documented in this encounterBarnesville Hospital05-30-2023 History of Present illness Narrative* Lala Ruiz APRN.DIRECTOR OF FIELD COORDINATION - 10/13/2022 8:32 AM EDT AMBULATORY TELEPHONE [...] Total Time Spent: 15 minutes Lala Ruiz APRN.DIRECTOR OF FIELD COORDINATION documented in this encounterBarnesville Hospital05-03-2023 Nurse Note* Lacy Ruiz RN - 09/16/2022 [...] has follow up virtual appointment scheduled with BOOK [facility]AILER following botox injections. documented in this encounterBarnesville Hospital2023 History of Present illness Narrative* Priyanka Smith MD - 08/20/2022 2:20 PM EDT 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 Patient presents with: Follow Up HPI Eren Merchant is a 62 year old female who presents here today for an follow up. Pt seen in on 08/12/22 with c/o of cough, nasal [...] 08/05/2017 Added automatically from request for surgery [id number] Rectal bleed 09/05/14 Thymoma Resected 07/14/17, Masaoka [...] UNI/BI Tubal ligation LX PARTIAL COLECTOMY 12/23/2017 [facility] lap lysis of adhesions, left oopherectomy, right salpinoopherectomy, left salpingectomy, redo lap sigmoid colectomy w/ressection, lap mobilization of splenic flexure, lap appendectomy PAST SURGICAL HISTORY OF 10/2008 T9-L1 fusion, Dr. Lemon PAST SURGICAL HISTORY OF 10/24/2009 Removed T9-L1, 2 rods and 8 screws, Dr Lemon PAST SURGICAL HISTORY OF 11/2018 Hysteroscopy with D&C and Polypectomy with Burroughs and NephUlympix Truclear device PICC LINE INSERT/CONSULT 07/11/2018 THYMECTOMY [...] Past Histories independently gathered by the clinical customer support coordinator and the remaining scribed note accurately describes my personal service to the patient. Medical Decision Making: Problems: Low: Acute, uncomplicated illness or injury Risk: Moderate: Drug management Medical Decision Making Level: 3 - Low Priyanka Smith MD The documentation for this note was completed by Susana Bhardwaj Ma acting as scribe for Priynaka Smith MD. August 20, 2022 2:13 PM. Susana Bhardwaj Ma documented in this encounterBarnesville Hospital03-30-2023 Miscellaneous Notes* Telephone Encounter - Alysha Miller [...] improving. Guillermo Mccormick APRN.SAMIR documented in this encounterBarnesville Hospital03-29-2023 History of Present illness Narrative* Guillermo Mccormick [...] 08/05/2017 Added automatically from request for surgery [id number] Rectal bleed 09/05/14 Thymoma Resected 07/14/17, Masaoka [...] UNI/BI Tubal ligation LX PARTIAL COLECTOMY 12/23/2017 [facility] lap lysis of adhesions, left [...] of care. This note was generated using Instapio software. It may contain errors in wording, punctuation, or spelling. Guillermo Mccormick APRN.SAMIR documented in this encounterBarnesville Hospital03-28-2023 NoteHNO ID: [id number] Author: JUDIT Earl Service: Radiology Author Type: Technologist Type: [...] PERIPHERAL IV DATA: Not applicable SIGNED BY: JUDIT Earl August 11, 2022 3:33 PMMemorial Health System [facility] General [id number] History of Present illness Narrative* Kimmy Zamora [...] PERIPHERAL IV DATA: Not applicable SIGNED BY: JUDIT Earl August 11, 2022 3:33 PM documented in this encounterBarnesville Hospital03-28-2023 History of Present illness Narrative* Mathew Yang [...] Date Value 05/22/2022 Negative 03/22/2020 Negative Specific [place], Ur (no units) Date Value 05/22/2022 1.010 [...] of uterus Malnutrition of moderate degree ([facility]) 06/15/2018 Obesity, Class I, BMI 30-34.9 E66.9 09/03/2017 Primary osteoarthritis of first carpometacarpal joint of right hand 08/05/2017 Added automatically from request for surgery [id number] Rectal bleed 09/05/14 Thymoma Resected 07/14/17, Masaoka [...] Yang Jr, MD 08/11/2022 documented in this encounterBarnesville Hospital03-10-2023 Miscellaneous Notes* Letter - Mammography Coordinator - 07/24/2022 10:31 AM EST July 27, 2022 PID: [id number] Eren JavierKaleb Merchant [address] [place] [address] Dear Ms. Merchant, We are pleased to [...] report will be [facility] as part of your permanent medical record and are available for your continuing care. Thank you for allowing us to help in meeting your health care needs. Sincerely, Dr. Sherman Interpreting Radiologist [facility] (Normal over 40) documented in this encounterBarnesville Hospital03-09-2023 History of Present illness Narrative* Danni Yeung, RT(R) - 07/23/2022 12:50 PM EST Radiology [...] 23, 2022 12:44 PM documented in this encounterBarnesville Hospital02-15-2023 Instructions* Patient Instructions* KAUSHAL Lockhart - 07/01/2022 [...] Dark urine. Chest pain. documented in this encounterBarnesville Hospital02-15-2023 History of Present illness Narrative* KAUSHAL Lockhart - 07/01/2022 6:10 PM EST This note was created using SpineAlign Medicalriter. Subjective Eren Merchant is a 62 year [...] 08/05/2017 Added automatically from request for surgery [id number] Rectal bleed 09/05/14 Thymoma Resected 07/14/17, Masaoka [...] UNI/BI Tubal ligation LX PARTIAL COLECTOMY 12/23/2017 [facility] lap lysis of adhesions, left [...] ER evaluation. KAUSHAL Lockhart documented in this encounterBarnesville Hospital02-06-2023 Instructions* Patient Instructions* Susana Bhardwaj Ma - 06/22/2022 3:02 PM EST Follow up in 6 months as scheduled. documented in this encounterBarnesville Hospital02-06-2023 History of Present illness Narrative* Priyanka Smith MD - 06/22/2022 2:40 PM EST 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 Patient presents with: 6 Month Exam HPI Eren Merchant is a 62 year old female who presents here today for a 6 month follow up. Pt here today for her routine 6 month follow up. No bowel, Gi, or urinary issues. Follows with Dr. Mg Uro REFERENCE TEST CLERK. Hx of acute cystitis, gross hematuria and OAB. Pt using Estrace vaginal cream. Previously took Mybetriq. She does have some burning with urination which she is working with REFERENCE TEST CLERK/Uro with. She had a CT scan done that did show some nonobstructing kidney stones. She states that she does occ have blood in the urine or when she wipes. Pt advised to follow up with Uro REFERENCE TEST CLERK as scheduled and if any other questions/concerns to contact their office. GERD: Stable. No longer on Omeprazole. Has followed with GI in the past for issues of brad esophagitis, odynophagia and esophageal dysmotility. Has used Nystatin rinse in the past. Her Gastro doctor Dr. Franklin has moved to [place] and she doesn't want to drive that [...] 08/05/2017 Added automatically from request for surgery [id number] Rectal bleed 09/05/14 Thymoma Resected 07/14/17, Masaoka [...] UNI/BI Tubal ligation LX PARTIAL COLECTOMY 12/23/2017 [facility] lap lysis of adhesions, left oopherectomy, right salpinoopherectomy, left salpingectomy, redo lap sigmoid colectomy w/ressection, lap mobilization of splenic flexure, lap appendectomy PAST SURGICAL HISTORY OF 10/2008 T9-L1 fusion, Dr. Lemon PAST SURGICAL HISTORY OF 10/24/2009 Removed T9-L1, 2 rods and 8 screws, Dr Lemon PAST SURGICAL HISTORY OF 11/2018 Hysteroscopy with D&C and Polypectomy with Burroughs and NephUlympix Truclear device PICC LINE INSERT/CONSULT 07/11/2018 THYMECTOMY [...] Lymph% 05/23/2022 19.5 Abs Lymph 05/23/2022 2.27 Clinton% 05/23/2022 7.5 Abs [place] 05/23/2022 0.88 (A) Eosin% 05/23/2022 0.1 Abs [...] 50,000-<100,000 CFU/ml Proteus mirabilis (A) Color 05/22/2022 [place] (A) Clarity 05/22/2022 Clear Glucose, Urine 05/22/2022 Negative Bilirubin, Urine 05/22/2022 Negative Ketones, Urine 05/22/2022 Negative Specific [place], Ur 05/22/2022 1.010 Hemoglobin/Blood,Ur 05/22/2022 3+ (A) [...] 05/22/2022 Small (A) COLOR UA (POCT) 05/22/2022 [place] CLARITY UA (POCT) 05/22/2022 Clear Appointment on [...] Results Only on 04/22/2022 Component Date Value Wheel Press Operator 04/22/2022 Value:Provider UMBEL your patient EREN MERCHANT [...] Past Histories independently gathered by the clinical customer support coordinator and the remaining scribed note accurately describes [...] PM. Susana Bhardwaj Ma documented in this encounterBarnesville Hospital02-01-2023 History of Present illness Narrative* John Mg MD - 06/17/2022 9:08 PM EST Order for consult to urology documented in this encounterBarnesville Hospital01-27-2023 Miscellaneous Notes* Telephone Encounter - Juwan Land APRN.SAMIR - 06/12/2022 10:43 AM EST The following approved medication requests have been transmitted electronically. Requested Prescriptions Pending Prescriptions Disp Refills levothyroxine (SYNTHROID) 100 mcg tablet 90 tablet 3 Sig: Take 1 tablet by mouth once daily. Take on empty stomach Juwan Land APRN.SAMIR * Telephone Encounter - Mariam Woods LPN - 06/12/2022 9:57 AM EST Patient phones requesting refills as follows: Requested Prescriptions Pending Prescriptions Disp Refills levothyroxine (SYNTHROID) 100 mcg tablet 90 tablet 3 Sig: Take 1 tablet by mouth once daily. Take on empty stomach AMAN-12/19/21 Labs-05/23/22 NOV-06/22/22 Med filled 06/16/21 Please review and advise. Mariam Woods LPN documented in this encounterBarnesville Hospital01-24-2023 History of Present illness Narrative* Cara Connors, RT(R) - 06/09/2022 10:00 AM EST Radiology [...] 2022 TIME: 10:34 AM documented in this encounterBarnesville Hospital01-13-2023 Miscellaneous Notes* Telephone Encounter - Tonya Coleman - 05/29/2022 10:41 AM EST Patient has been scheduled on 09/14/2022 for cysto with botox and for 06/09/[address] [place] [address] urogram. Thank you. Tonya Coleman * Telephone Encounter - Noa Schmidt RN - 05/29/2022 10:26 AM EST Phone call placed to patient to schedule cystoscopy with possible Botox injection. First available at [place] is 09/14 at 8:30, patient accepts. She declined sooner appt at another location. PSS- please schedule the cystoscopy and assist with scheduling CT Urogram (also ordered). Referral placed. She states her hematuria has resolved since taking antibiotic for UTI and she is starting to feel better. documented in this encounterBarnesville Hospital01-10-2023 Miscellaneous Notes* Telephone Encounter - German Grubbs APRN.CNP - 05/26/2022 9:35 AM EST Left message for patient regarding urine culture results indicating a UTI. Bactrim sent to pharmacy. German Grubbs APRN.SAMIR documented in this encounterBarnesville Hospital01-06-2023 Instructions* Patient Instructions* Lacy Ruiz RN - [...] Mcqueen Dr. Vargas Dr. Mg Teri Roberts, DIRECTOR OF FIELD COORDINATION German Grubbs, DIRECTOR OF FIELD COORDINATION Lala Ruiz, DIRECTOR OF FIELD COORDINATION Lucina Estrada, DIRECTOR OF FIELD COORDINATION After 4:30 pm or on holidays or weekends, call: or . Ask the operator control room to page the REFERENCE TEST CLERK senior reservations agent.' [facility] Patients ONLY: After 4:30 PM or on holidays or weekends, call and you will be connected to the answering service/physician senior reservations agent. Please DO NOT use LUMI Maskhart for procedure concerns. documented in this encounterBarnesville Hospital01-06-2023 History of Present illness Narrative* Lacy Ruiz RN - 05/22/2022 2:30 PM EST URODYNAMICS Procedure cancelled by Dr. Mg. Pt with gross hematuria. documented in this encounterBarnesville Hospital12-06-2022 Miscellaneous Notes* Telephone Encounter - Eugenia Amaro [...] day. Eugenia Amaro RN documented in this encounterBarnesville Hospital12-02-2022 History of Present illness Narrative* Karen Alcantara MD - 04/17/2022 2:45 PM EST . [facility] Note Patient name: Eren Merchant PCP: Priyanka [...] Diagnostic Studies: DATE OF EXAM: 2022 1:47PM [facility] 0541 - CT CHEST WO IVCON [...] of uterus Malnutrition of moderate degree ([facility]) 06/15/2018 Obesity, Class I, BMI 30-34.9 E66.9 09/03/2017 Primary osteoarthritis of first carpometacarpal joint of right hand 08/05/2017 Added automatically from request for surgery [id number] Rectal bleed 09/05/14 Thymoma Resected 07/14/17, Masaoka [...] for superimposed infection Karen Alcantara MD [facility] [place] documented in this encounterBarnesville Hospital11-21-2022 History of Present illness Narrative* Cara Connors RT(R) - 2022 1:20 PM EST Radiology [...] IV DATA: Not applicable SIGNED BY: RT Jonathon(Quoc) 2022 4:09 PM documented in this encounterBarnesville Hospital11-18-2022 Miscellaneous Notes* Telephone Encounter - Mariam Woods LPN - 04/03/2022 2:24 PM EST Patient notified of results, verbalizes understanding of instructions. Mariam Woods LPN * Telephone Encounter - Cleo Stevens APRN.SAMIR - 04/03/2022 1:47 PM EST Please inform patient that urine culture was negative. Can discontinue antibiotic. Follow up with primary care provider as patient had blood in urine. documented in this encounterBarnesville Hospital11-17-2022 History of Present illness Narrative* Genie Olson APRN.SAMIR - 04/02/2022 8:41 AM EST CC: Patient presents with: Urinary Frequency: With burning x2.5 weeks, already previously treated with Bactrim 03/17 HPI Eren Merchant is a 61 year old female who presents with complaint of possible UTI. These symptomshave been present for since feb. Associated symptoms: [...] 08/05/2017 Added automatically from request for surgery [id number] Rectal bleed 09/05/14 Thymoma Resected 07/14/17, Masaoka [...] UNI/BI Tubal ligation LX PARTIAL COLECTOMY 12/23/2017 [facility] lap lysis of adhesions, left [...] okay. Genie Olson APRN.SAMIR documented in this encounterBarnesville Hospital11-16-2022 Miscellaneous Notes* Telephone Encounter - Kiki Patel RN - 04/01/2022 10:07 AM EST Last annual with CP 11/26/21. Requested Prescriptions Pending Prescriptions Disp Refills estradiol (ESTRACE) 0.01 % (0.1 mg/gram) vaginal cream 42.5 g 1 Sig: Use 1 g vaginally two times a week. RX INSTRUCTIONS: Mychart request. Kiki Patel RN documented in this encounterBarnesville Hospital11-14-2022 Miscellaneous Notes* Telephone Encounter - Tonya Coleman [...] accepted appointment on 05/22/22 at 2:30 at [place]. PSS- please schedule documented in this encounterBarnesville Hospital11-07-2022 Miscellaneous Notes* Telephone Encounter - Tariq Brooks [...] for 3 days. Authorizing Provider: TARIQ BROOKS APRN.SAMIR documented in this encounterBarnesville Hospital11-02-2022 Miscellaneous Notes* Telephone Encounter - Eugenia Amaro RN - 03/18/2022 11:40 AM EDT Pt is scheduled and placed on wait list Eugenia Amaro RN * Telephone Encounter - Tia Valdovinos - 03/06/2022 2:15 PM EDT Patient wants to make follow up but there is nothing available thru the end of the year. documented in this encounterBarnesville Hospital10-31-2022 Instructions* Patient Instructions* John Mg MD - [...] UROGYNECOLOGY PHYSICIAN CONTACT INFORMATION Dr. John Mg ([facility]) Dr. John Mg ([facility]) Dr. Viji Zaragoza ([facility]) Dr. Ana Cerda Dr. Chelita Ramirez Dr. Shannen Mcqueen Dr. Yelena Vargas [phone] Dr. Jonh Mg Teri Roberts, SAMIR Ruiz, SAMIR Estrada, SAMIR After 4:30 pm or on holidays or weekends, call: or . Ask the operator control room to page the REFERENCE TEST CLERK senior reservations agent.' Please DO NOT use MyChart for post-surgery concerns. documented in this encounterBarnesville Hospital10-31-2022 History of Present illness Narrative* John Mg [...] have a BM, blood in stool, Last colonoscopy(2018): has history of colon cancer Sexual activity: [...] denies anxiety, depression Medical and Symptom History: REFERENCE TEST CLERK HISTORY: Last Pap: Date:2018, normal; Last Mammogram: [...] Vagina or pelvis 1. 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 John Mg MD Block Sealer offered: Patient declines. OBJECTIVE: BP 108/74 Wt [...] Post Wall - Normal support Cervix / [place] - Normal support POP-Q: Prolapse Noted: No [...] mail. John Mg MD documented in this encounterBarnesville Hospital10-19-2022 Miscellaneous Notes* Telephone Encounter - Eugenia Amaro [...] day. Eugenia Amaro RN documented in this encounterBarnesville Hospital10-10-2022 History of Present illness Narrative* Cecy Vigil APRN.DIRECTOR OF FIELD COORDINATION - 02/23/2022 3:16 PM EDT Heart, V[facility] Thor[facility] [place] Department of Thoracic Surgery TELEPHONE VISIT (audio only) PROGRESS NOTE This is a telephone encounter initiated for an established patient. The patient, parent or guardianis not originating from a related Evaluation & Management service provided within the previous 7 days nor leading to an Evaluation & Management service or procedure within the next 24 hours or soonest available appointment. Eren Merchant has consented to this telephone encounter. Persons Present: patient Total Time Spent: 11-20 minutes Cecy Vigil APRN.[facility] - OUTPATIENT THORACIC SURGERY CLINIC NOTE PT NAME: Eren Merchant [facility] NO: [id number] THORACIC SURGEON: Bar Ferrer M.D. DATE OF [...] - Pulmonary to manage, Dr. Quinton Vigil APRN.DIRECTOR OF FIELD COORDINATION documented in this encounterBarnesville Hospital10-03-2022 Instructions* Patient Instructions* Karen Alcantara MD - [...] your usual activities immediately. documented in this encounterBarnesville Hospital10-03-2022 History of Present illness Narrative* Karen Alcantara MD - 02/16/2022 9:30 AM EDT Images from the original note were not included. . [facility] Note Patient name: Eren Merchant PCP: Priyanka [...] bronchiectasis). Her case was presented at the [place] ILD conference and the questio n of [...] Abs Lymph 1.00 - 4.00 k/uL 3.73 Clinton% % 8.0 Abs [place] <0.87 k/uL 0.89 High Eosin% % 0.0 [...] DATE OF EXAM: Feb 12 2022 8:17AM [facility] 0541 - CT CHEST WO IVCON [...] calculus in upper pole of theleft kidney. Pediatrics Teacher (topogram) images: No additional findings. IMPRESSION: 1. [...] 08/05/2017 Added automatically from request for surgery [id number] Rectal bleed 09/05/14 Thymoma Resected 07/14/17, Masaoka [...] UNI/BI Tubal ligation LX PARTIAL COLECTOMY 12/23/2017 [facility] lap lysis of adhesions, left oopherectomy, right salpinoopherectomy, left salpingectomy, redo lap sigmoid colectomy w/ressection, lap mobilization of splenic flexure, lap appendectomy PAST SURGICAL HISTORY OF 10/2008 T9-L1 fusion, Dr. 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 May need to increase to 1500 mg I spent a total of 50 minutes on the date of the service which included preparing to see the patient, [id number] patient care, completing clinical documentation, obtaining and/or reviewing separately obtained history, performing a medically appropriate examination, ordering medications, tests, or procedures, and independently interpreting results (not separately reported). Karen Alcantara MD [facility] [place] documented in this encounterBarnesville Hospital09-30-2022 Miscellaneous Notes* Telephone Encounter - Noa Gerard - 02/13/2022 10:09 AM EDT Reason for call: Mrs. Merchant would like to schedule a f/u appointment with Dr. Ferrer. Home and cell number [phone] Diagnosis Malignant neoplasm of thymus (HCC) Noa Marie documented in this encounterBarnesville Hospital08-11-2022 Miscellaneous Notes* Telephone Encounter - Kiki Patel RN - 12/25/2021 8:24 AM EDT Duplicate message. See other mychart message. Kiki Patel RN documented in this encounterBarnesville Hospital08-08-2022 History of Present illness Narrative* Clementina Zaldivar LPN - 12/22/2021 10:07 AM EDT Patient presents for COVID booster. Denies any problems at this time. Tolerated injection well. Clementina Zaldivar LPN documented in this encounterBarnesville Hospital08-05-2022 History of Present illness Narrative* Priyanka Smith MD - 12/19/2021 9:20 AM EDT 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 Patient presents with: F/U 6 Month HPI Eren Merchant is a 61 year old female who presents here today for 6 month follow up. Pt here today for a 6 month follow up. Reports today is a good day. Going to [employer]. No bowel, Gi, or urinary issues. Does follow with Urologist Dr. Yang for OAB. 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 Did have recent US imaging due to [...] follows with Dr. 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 Lemon PAST SURGICAL HISTORY OF 10/24/2009 Removed T9-L1, 2 rods and 8 screws, Dr Lemon PAST SURGICAL HISTORY OF 11/2018 Hysteroscopy with D&C and Polypectomy with Burroughs and NephUlympix Truclear device PICC LINE INSERT/CONSULT 07/11/2018 THYMECTOMY [...] Lymph% 12/04/2021 33.4 Abs Lymph 12/04/2021 3.73 [place]% 12/04/2021 8.0 Abs [place] 12/04/2021 0.89 (A) Eosin% 12/04/2021 0.0 Abs [...] Past Histories independently gathered by the clinical customer support coordinator and the remaining scribed note accurately describes [...] AM. Tess Persaud Ma documented in this encounterBarnesville Hospital07-29-2022 Miscellaneous Notes* Telephone Encounter - Citlaly Amaya RN - 12/12/2021 1:30 PM EDT Patient phones requesting refills as follows: Pending Prescriptions Disp Refills PREDNISONE 10 MG TABLET Sig: Take 1 tablet by mouth once daily. ARIANA: No Please review and advise. Former patient of Dr. Cuenca. She has an appointment to establish with Dr. Alcantara on 02/16/22. Citlaly Amyaa RN documented in this encounterBarnesville Hospital07-18-2022 History of Present illness Narrative* Sarah Berg RT(R) - 12/01/2021 11:30 AM EDT Radiology Service [...] 01, 2021 1:42 PM documented in this encounterBarnesville Hospital07-13-2022 Miscellaneous Notes* Telephone Encounter - Reagan Vigil Ma - 11/26/2021 9:38 AM EDT Pharmacy called requesting the following refill. Pending Prescriptions Disp Refills MYRBETRIQ 50 MG TABLET,EXTENDED RELEASE 30 tablet 11 Sig: Take 1 tablet by mouth once daily. ARIANA: Yes Patient last appointment: Visit date not found Patient Phone numbers: [phone] (home) Request is for script(s) to be escript to pharmacy. Reagan Vigil Ma documented in this encounterBarnesville Hospital07-13-2022 History of Present illness Narrative* Charis Lopez [...] Multiple0 Live Births0 Comment: 2 vaginal deliveries Chief Gauger History LMP: 01/07/2011, Postmenopausal Age at Menarche: Age at First : Age at Menopause: Chief Gauger History Comments: Sexual Activity: Yes; Male Contraception: [...] 08/05/2017 Added automatically from request for surgery [id number] Rectal bleed 09/05/14 Thymoma Resected 07/14/17, Masaoka [...] UNI/BI Tubal ligation LX PARTIAL COLECTOMY 12/23/2017 [facility] lap lysis of adhesions, left oopherectomy, right salpinoopherectomy, left salpingectomy, redo lap sigmoid colectomy w/ressection, lap mobilization of splenic flexure, lap appendectomy PAST SURGICAL HISTORY OF 10/2008 T9-L1 fusion, Dr. eLmon PAST SURGICAL HISTORY OF 10/24/2009 Removed T9-L1, 2 rods and 8 screws, Dr Lemon PAST SURGICAL HISTORY OF 11/2018 Hysteroscopy with D&C and Polypectomy with Burroughs and NephUlympix Truclear device PICC LINE INSERT/CONSULT 07/11/2018 THYMECTOMY [...] external genitalia normal, normal [place]'s glands, urethra, [place]'s glands, no vulvar lesions, no cervical lesions, [...] patient of results and follow up after URO/REFERENCE TEST CLERK consult Charis Lopez APRN.CNM documented in this encounterBarnesville Hospital07-05-2022 Miscellaneous Notes* Telephone Encounter - Priyanka Smith MD - 11/18/2021 4:44 PM EDT Order filed Priyanka Smtih MD * Telephone Encounter - Clementina Zaldivar LPN - 11/18/2021 3:26 PM EDT Patient scheduled for nurse visit 12/04/21 to receive Shingrix vaccine. Please place order at this time. Clementina Zaldivar LPN documented in this encounterBarnesville Hospital06-22-2022 Instructions* Patient Instructions* Cleo Maynard APRN.CNM - [...] and avoid tight-fitting clothing. documented in this encounterBarnesville Hospital06-22-2022 History of Present illness Narrative* Cleo Maynard [...] Multiple0 Live Births0 Comment: 2 vaginal deliveries Chief Gauger History LMP: 01/07/2011, Postmenopausal Age at Menarche: Age at First : Age at Menopause: Chief Gauger History Comments: Sexual Activity: Yes; Male Contraception: [...] 08/05/2017 Added automatically from request for surgery [id number] Rectal bleed 09/05/14 Thymoma Resected 07/14/17, Masaoka [...] UNI/BI Tubal ligation LX PARTIAL COLECTOMY 12/23/2017 [facility] lap lysis of adhesions, left [...] discuss Cleo Maynard APRN.CNM documented in this encounterBarnesville Hospital04-04-2022 History of Present illness Narrative* Sam Cuenca MD - 08/18/2021 11:53 AM EDT [facility] [place], 08/12/2021: Name: Eren Merchant : 1960 INTERVAL [...] I am retiring from the staff of [facility] and the practice of Medicine on [...] and Gerri Cruz PA-C. Roman Stroud MD. Sam Cuenca MD, [facility] [place] [facility] [address] [place] [id number] P: [phone] F: [phone] documented in this encounterBarnesville Hospital03-29-2022 Instructions* Patient Instructions* Sam Cuenca MD - 08/12/2021 2:12 PM EDT [...] I am retiring from the staff of [facility] and the practice of Medicine on [...] and Gerri Cruz PA-C. Roman Stroud MD. Sam Cuenca MD, [facility] [address] [address] P: [phone] F: [phone] documented in this encounterBarnesville Hospital03-29-2022 History of Present illness Narrative* Ernestina Tavarez RRT - 08/12/2021 1:31 PM EDT PULM FUNCTION SMARTBLOCK: Provider: Sam Cuenca MD Assisting Tech: Ernestina Tavarez RRT Spirometry: 1 System: [id number] documented in this encounterBarnesville Hospital03-23-2022 Miscellaneous Notes* Telephone Encounter - Juwan Land [...] 12/19/21 Karen Soler Ma documented in this encounterBarnesville Hospital02-10-2021 History of Present illness Narrative* Sakshi Suazo (Rt), Tech - 06/26/2020 3:40 PM EST Radiology Service [...] 26, 2020 3:42 PM documented in this encounterBarnesville Hospital09-28-2020 History of Past illness Narrative* Problem [...] Overview: Added automatically from request for surgery [id number] Open wound(s) (multiple) of unspecified site(s), without [...] of this encounter (statuses as of 06/22/2023) [facility] Narrative* Problem [...] Overview: Added automatically from request for surgery [id number] Open wound(s) (multiple) of unspecified site(s), without [...] of this encounter (statuses as of 08/09/2023) [facility] Narrative* Problem [...] Overview: Added automatically from request for surgery [id number] Open wound(s) (multiple) of unspecified site(s), without [...] of this encounter (statuses as of 08/09/2023) [facility] Narrative* Problem [...] Overview: Added automatically from request for surgery [id number] Open wound(s) (multiple) of unspecified site(s), without [...] of this encounter (statuses as of 08/19/2023) [facility] Narrative* Problem [...] Overview: Added automatically from request for surgery [id number] Open wound(s) (multiple) of unspecified site(s), without [...] of this encounter (statuses as of 08/21/2023) [facility] Narrative* Problem [...] Overview: Added automatically from request for surgery [id number] Open wound(s) (multiple) of unspecified site(s), without [...] of this encounter (statuses as of 08/28/2023) [facility] Narrative* Problem [...] Overview: Added automatically from request for surgery [id number] Open wound(s) (multiple) of unspecified site(s), without [...] of this encounter (statuses as of 09/02/2023) [facility] Narrative* Problem [...] Overview: Added automatically from request for surgery [id number] Open wound(s) (multiple) of unspecified site(s), without [...] of this encounter (statuses as of 09/02/2023) [facility] Narrative* Problem [...] Overview: Added automatically from request for surgery [id number] Open wound(s) (multiple) of unspecified site(s), without [...] of this encounter (statuses as of 08/06/2021) [facility] Narrative* Problem [...] Overview: Added automatically from request for surgery [id number] Open wound(s) (multiple) of unspecified site(s), without [...] of this encounter (statuses as of 08/12/2021) [facility] Narrative* Problem [...] Overview: Added automatically from request for surgery [id number] Open wound(s) (multiple) of unspecified site(s), without [...] of this encounter (statuses as of 08/18/2021) [facility] Narrative* Problem [...] Overview: Added automatically from request for surgery [id number] Open wound(s) (multiple) of unspecified site(s), without [...] of this encounter (statuses as of 11/05/2021) [facility] Narrative* Problem [...] Overview: Added automatically from request for surgery [id number] Open wound(s) (multiple) of unspecified site(s), without [...] of this encounter (statuses as of 11/19/2021) [facility] Narrative* Problem [...] Overview: Added automatically from request for surgery [id number] Open wound(s) (multiple) of unspecified site(s), without [...] of this encounter (statuses as of 11/26/2021) [facility] N[facility]ative* Problem [...] Overview: Added automatically from request for surgery [id number] Open wound(s) (multiple) of unspecified site(s), without [...] of this encounter (statuses as of 11/26/2021) [facility] Narrative* Problem [...] Overview: Added automatically from request for surgery [id number] Open wound(s) (multiple) of unspecified site(s), without [...] of this encounter (statuses as of 12/02/2021) [facility]* Problem [...] Overview: Added automatically from request for surgery [id number] Open wound(s) (multiple) of unspecified site(s), without [...] of this encounter (statuses as of 12/12/2021) [facility]* Problem [...] Overview: Added automatically from request for surgery [id number] Open wound(s) (multiple) of unspecified site(s), without [...] of this encounter (statuses as of 12/19/2021) [facility]* Problem [...] Overview: Added automatically from request for surgery [id number] Open wound(s) (multiple) of unspecified site(s), without [...] of this encounter (statuses as of 12/22/2021) [facility]* Problem [...] Overview: Added automatically from request for surgery [id number] Open wound(s) (multiple) of unspecified site(s), without [...] of this encounter (statuses as of 12/25/2021) [facility]* Problem [...] Overview: Added automatically from request for surgery [id number] Open wound(s) (multiple) of unspecified site(s), without [...] of this encounter (statuses as of 02/13/2022) [facility]* Problem [...] Overview: Added automatically from request for surgery [id number] Open wound(s) (multiple) of unspecified site(s), without [...] of this encounter (statuses as of 02/17/2022) [facility]* Problem [...] Overview: Added automatically from request for surgery [id number] Open wound(s) (multiple) of unspecified site(s), without [...] of this encounter (statuses as of 02/20/2022) [facility]* Problem [...] Overview: Added automatically from request for surgery [id number] Open wound(s) (multiple) of unspecified site(s), without [...] of this encounter (statuses as of 02/20/2022) [facility]* Problem [...] Overview: Added automatically from request for surgery [id number] Open wound(s) (multiple) of unspecified site(s), without [...] of this encounter (statuses as of 02/23/2022) [facility]* Problem [...] Overview: Added automatically from request for surgery [id number] Open wound(s) (multiple) of unspecified site(s), without [...] of this encounter (statuses as of 02/23/2022) [facility]* Problem [...] Overview: Added automatically from request for surgery [id number] Open wound(s) (multiple) of unspecified site(s), without [...] of this encounter (statuses as of 03/04/2022) [facility]* Problem [...] Overview: Added automatically from request for surgery [id number] Open wound(s) (multiple) of unspecified site(s), without [...] of this encounter (statuses as of 03/18/2022) [facility]* Problem [...] Overview: Added automatically from request for surgery [id number] Open wound(s) (multiple) of unspecified site(s), without [...] of this encounter (statuses as of 03/23/2022) [facility]* Problem [...] Overview: Added automatically from request for surgery [id number] Open wound(s) (multiple) of unspecified site(s), without [...] of this encounter (statuses as of 03/25/2022) [facility]* Problem [...] Overview: Added automatically from request for surgery [id number] Open wound(s) (multiple) of unspecified site(s), without [...] of this encounter (statuses as of 03/25/2022) [facility]* Problem [...] Overview: Added automatically from request for surgery [id number] Open wound(s) (multiple) of unspecified site(s), without [...] of this encounter (statuses as of 03/30/2022) [facility]* Problem [...] Overview: Added automatically from request for surgery [id number] Open wound(s) (multiple) of unspecified site(s), without [...] of this encounter (statuses as of 04/01/2022) [facility] Problem [...] Overview: Added automatically from request for surgery [id number] Open wound(s) (multiple) of unspecified site(s), without [...] of this encounter (statuses as of 04/02/2022) [facility] Problem [...] Overview: Added automatically from request for surgery [id number] Open wound(s) (multiple) of unspecified site(s), without [...] of this encounter (statuses as of 04/07/2022) [facility] Problem [...] Overview: Added automatically from request for surgery [id number] Open wound(s) (multiple) of unspecified site(s), without [...] of this encounter (statuses as of 04/08/2022) [facility] Problem [...] Overview: Added automatically from request for surgery [id number] Open wound(s) (multiple) of unspecified site(s), without [...] of this encounter (statuses as of 04/13/2022) [facility] Problem [...] Overview: Added automatically from request for surgery [id number] Open wound(s) (multiple) of unspecified site(s), without [...] of this encounter (statuses as of 04/17/2022) [facility] Problem [...] Overview: Added automatically from request for surgery [id number] Open wound(s) (multiple) of unspecified site(s), without [...] of this encounter (statuses as of 04/21/2022) [facility] Problem [...] Overview: Added automatically from request for surgery [id number] Open wound(s) (multiple) of unspecified site(s), without [...] of this encounter (statuses as of 05/25/2022) [facility] Problem [...] Overview: Added automatically from request for surgery [id number] Open wound(s) (multiple) of unspecified site(s), without [...] of this encounter (statuses as of 05/26/2022) [facility] Problem [...] Overview: Added automatically from request for surgery [id number] Open wound(s) (multiple) of unspecified site(s), without [...] of this encounter (statuses as of 05/29/2022) [facility] Problem [...] Overview: Added automatically from request for surgery [id number] Open wound(s) (multiple) of unspecified site(s), without [...] of this encounter (statuses as of 06/12/2022) [facility] Problem [...] Overview: Added automatically from request for surgery [id number] Open wound(s) (multiple) of unspecified site(s), without [...] of this encounter (statuses as of 06/18/2022) [facility] Problem [...] Overview: Added automatically from request for surgery [id number] Open wound(s) (multiple) of unspecified site(s), without [...] of this encounter (statuses as of 06/23/2022) [facility] Problem [...] Overview: Added automatically from request for surgery [id number] Open wound(s) (multiple) of unspecified site(s), without [...] of this encounter (statuses as of 07/02/2022) [facility] Problem [...] Overview: Added automatically from request for surgery [id number] Open wound(s) (multiple) of unspecified site(s), without [...] of this encounter (statuses as of 07/28/2022) [facility] Problem [...] Overview: Added automatically from request for surgery [id number] Open wound(s) (multiple) of unspecified site(s), without [...] of this encounter (statuses as of 08/11/2022) [facility] Problem [...] Overview: Added automatically from request for surgery [id number] Open wound(s) (multiple) of unspecified site(s), without [...] of this encounter (statuses as of 08/13/2022) [facility] Problem [...] Overview: Added automatically from request for surgery [id number] Open wound(s) (multiple) of unspecified site(s), without [...] of this encounter (statuses as of 08/13/2022) [facility] Problem [...] Overview: Added automatically from request for surgery [id number] Open wound(s) (multiple) of unspecified site(s), without [...] of this encounter (statuses as of 08/19/2022) [facility] Problem [...] Overview: Added automatically from request for surgery [id number] Open wound(s) (multiple) of unspecified site(s), without [...] of this encounter (statuses as of 08/20/2022) [facility]* Problem [...] Overview: Added automatically from request for surgery [id number] Open wound(s) (multiple) of unspecified site(s), without [...] of this encounter (statuses as of 09/16/2022) [facility] Problem [...] Overview: Added automatically from request for surgery [id number] Open wound(s) (multiple) of unspecified site(s), without [...] of this encounter (statuses as of 10/13/2022) [facility]* Problem [...] Overview: Added automatically from request for surgery [id number] Open wound(s) (multiple) of unspecified site(s), without [...] of this encounter (statuses as of 10/16/2022) [facility] Problem [...] Overview: Added automatically from request for surgery [id number] Open wound(s) (multiple) of unspecified site(s), without [...] of this encounter (statuses as of 10/16/2022) [facility]* Problem [...] Overview: Added automatically from request for surgery [id number] Open wound(s) (multiple) of unspecified site(s), without [...] of this encounter (statuses as of 11/03/2022) [facility]* Problem [...] Overview: Added automatically from request for surgery [id number] Open wound(s) (multiple) of unspecified site(s), without [...] of this encounter (statuses as of 11/06/2022) [facility]* Problem [...] Overview: Added automatically from request for surgery [id number] Open wound(s) (multiple) of unspecified site(s), without [...] of this encounter (statuses as of 11/16/2022) [facility]* Problem [...] Overview: Added automatically from request for surgery [id number] Open wound(s) (multiple) of unspecified site(s), without [...] of this encounter (statuses as of 11/27/2022) [facility]* Problem [...] Overview: Added automatically from request for surgery [id number] Open wound(s) (multiple) of unspecified site(s), without [...] of this encounter (statuses as of 12/23/2022) [facility]* Problem [...] Overview: Added automatically from request for surgery [id number] Open wound(s) (multiple) of unspecified site(s), without [...] of this encounter (statuses as of 01/05/2023) [facility] History of Past illness Narrative* Problem [...] Overview: Added automatically from request for surgery [id number] Open wound(s) (multiple) of unspecified site(s), without [...] of this encounter (statuses as of 01/12/2023) [facility] History of Past illness Narrative* Problem [...] Overview: Added automatically from request for surgery [id number] Open wound(s) (multiple) of unspecified site(s), without [...] of this encounter (statuses as of 01/15/2023) [facility] History of Past illness Narrative* Problem [...] Overview: Added automatically from request for surgery [id number] Open wound(s) (multiple) of unspecified site(s), without [...] of this encounter (statuses as of 02/09/2023) [facility] History of Past illness Narrative* Problem [...] Overview: Added automatically from request for surgery [id number] Open wound(s) (multiple) of unspecified site(s), without [...] of this encounter (statuses as of 02/24/2023) [facility] History of Past illness Narrative* Problem [...] Overview: Added automatically from request for surgery [id number] Open wound(s) (multiple) of unspecified site(s), without [...] of this encounter (statuses as of 02/25/2023) [facility] History of Past illness Narrative* Problem [...] Overview: Added automatically from request for surgery [id number] Open wound(s) (multiple) of unspecified site(s), without [...] of this encounter (statuses as of 03/01/2023) [facility] History of Past illness Narrative* Problem [...] Overview: Added automatically from request for surgery [id number] Open wound(s) (multiple) of unspecified site(s), without [...] of this encounter (statuses as of 03/09/2023) [facility] History of Past illness Narrative* Problem [...] Overview: Added automatically from request for surgery [id number] Open wound(s) (multiple) of unspecified site(s), without [...] of this encounter (statuses as of 03/21/2023) [facility] History of Past illness Narrative* Problem [...] Overview: Added automatically from request for surgery [id number] Open wound(s) (multiple) of unspecified site(s), without [...] of this encounter (statuses as of 03/21/2023) [facility] History of Past illness Narrative* Problem [...] Overview: Added automatically from request for surgery [id number] Open wound(s) (multiple) of unspecified site(s), without [...] of this encounter (statuses as of 03/21/2023) [facility] Estevan Crowder [facility] Note Date/Time December 22, 2024 1:[address] [facility] Medical Records Department [address] [place] [address] Pre-Anesthesia Evaluation 12/22/24 1306 MR#: [id number] Acct: [id number] Name: EREN MERCHANT Rep #:[id number] : 1960 64 From: Estevan Crowder MD PCP: Dr. Gonzalo Day MD Status :REG SDC Y Race: C Location: [place] [address]- ASA Classification* ASA Classification ASA Classification: 3 [...] Procedure(s): COLONOSCOPY Anesthesia History Anesthesia History - jacquard card cutter: Anesthesia History - jacquard card cutter Hx Hospitalization Yes: 03/2024- 7 DAYS, [facility]. [...] am of surgery: Levothyroxine PONV PONV - jacquard card cutter: PONV - jacquard card cutter Female Yes 12/19/24 12:42 HX of Motion [...] 12/22/24 12:21 Respiratory Assessment Respiratory Assessment - jacquard card cutter: Respiratory Tract Infection Hx - jacquard card cutter Hx Respiratory Tract Infection No 12/19/24 12:42 STOP Sleep Apnea STOP Sleep Apnea - jacquard card cutter: STOP Sleep Apnea - jacquard card cutter Hx Hypertension No 12/19/24 12:42 Hx Sleep [...] Tobacco Use History Tobacco Use History - jacquard card cutter: Tobacco Use History - jacquard card cutter Tobacco Use Smoking Status Never smoker 12/19/24 12:42 Hx Tobacco Use No 12/19/24 12:42 Years Smoking Packs Smoked per Day Smoking Cessation Date was within the last 15 years Hx Smoking Cessation Date Hx Smoking Cessation Counseling Hematologic Medial History Hematologic Hx - jacquard card cutter: 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 Medical Records Department [address] [address] Anesthesia Postop Eval I 12/22/24 1358 MR#: [id number] Acct: [id number] Name: EREN MERCHANT Rep #:[id number] : 1960 64 From: Ana Pardo HAT BLOCKING MACHINE OPERATOR PCP: Dr. Gonzalo Day MD Status :REG SDC Y Race: C Location: [place] [address] Anesthesia: Postop Eval I Current Vital Signs [...] 12/22/24 1359 <Electronically signed by Ana booker HAT BLOCKING MACHINE OPERATOR> Date _ Ana Pardo HAT BLOCKING MACHINE OPERATOR Cosigner Signature: Date CC: ~ Signed [facility] Work Phone: Evaluation note* Diagnosis Nausea Nausea alone Epigastric pain Abdominal pain, epigastric [facility] Diagnosis NSIP (nonspecific interstitial pneumonia) (HCC) Other specified alveolar and parietoalveolar pneumonopathies [facility] Diagnosis NSIP (nonspecific interstitial pneumonia) (HCC)- Primary Other specified alveolar and parietoalveolar pneumonopathies Antisynthetase syndrome (HCC) Autoimmune disease, not elsewhere classified Esophageal dysmotility Dyskinesia of esophagus History of immunosuppressive therapy Personal history of immunosuppressive therapy Interstitial pulmonary disease (HCC) Postinflammatory pulmonary fibrosis [facility] Diagnosis Urinary urgency- Primary Urgency of urination Overactive bladder Hypertonicity of bladder [facility] Diagnosis Need for vaccination- Primary Need for prophylactic vaccination and inoculation against unspecified single disease [facility] Diagnosis Overactive bladder- Primary Hypertonicity of bladder [facility] Diagnosis Cystocele, midline- Primary Encounter for gynecological examination (general) (routine) without abnormal findings Encounter for screening mammogram for breast cancer Urinary urgency Urgency of urination Urinary frequency Vaginal atrophy Postmenopausal atrophic vaginitis [facility]* Diagnosis Cystocele, midline Urinary urgency Urgency of urination Urinary frequency [facility]* Diagnosis Hypothyroidism, unspecified type- Primary Chronic [...] therapeutic drug monitoring [facility]* Diagnosis Need for vaccination- Primary Need for prophylactic vaccination and inoculation against unspecified single disease [facility]* Diagnosis NSIP (nonspecific interstitial pneumonia) (HCC)- Primary Other specified alveolar and parietoalveolar pneumonopathies Ground glass opacity present on imaging of lung Encounter for screening for osteoporosis Special screening for osteoporosis 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 Encounter for long-term (current) use of steroids 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 [facility]* Diagnosis Steroid-induced osteopenia- Primary Disorder of bone and cartilage, unspecified [facility]* Diagnosis Lung nodules- Primary Other nonspecific abnormal finding of lung field [facility]* Diagnosis Brad infection Candidiasis of unspecified site [facility] Diagnosis Acute cystitis with hematuria- Primary Acute cystitis [facility]* Diagnosis Acute cystitis with hematuria- Primary Acute cystitis Cystocele, midline Urinary urgency Urgency of urination Urinary frequency Overactive bladder Hypertonicity of bladder [facility] Diagnosis Urinary frequency- Primary [facility]* Diagnosis NSIP (nonspecific interstitial pneumonia) (HCC)- Primary Other specified alveolar and parietoalveolar pneumonopathies [facility]* Diagnosis NSIP (nonspecific interstitial pneumonia) [facility] Primary Other specified alveolar and parietoalveolar pneumonopathies High risk medication use Encounter for long-term (current) use of other medications [facility] Diagnosis Brad infection Candidiasis of unspecified site [facility] Diagnosis Gross hematuria- Primary [facility]* Diagnosis Acute cystitis with hematuria- Primary Acute cystitis [facility]* Diagnosis Hypothyroidism, unspecified type [facility] 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- Primary [facility]* Diagnosis Acquired hypothyroidism- Primary Unspecified hypothyroidism Brad infection Candidiasis of unspecified site Need for vaccination Need for prophylactic vaccination and inoculation against unspecified single disease ILD (interstitial lung disease) ([facility]) Postinflammatory pulmonary fibrosis [facility]* Diagnosis Sore throat- Primary Acute pharyngitis Fever, unspecified fever cause [facility]* Diagnosis Kidney stone- Primary Calculus of kidney 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 Hydronephrosis with ureteropelvic junction (UPJ) obstruction [facility]* Diagnosis Acute cough- Primary Sinobronchitis Unspecified sinusitis (chronic) [facility]* Diagnosis Bronchitis- Primary Bronchitis, not specified as acute or chronic ILD (interstitial lung disease) ([facility]) Postinflammatory pulmonary fibrosis Subacute cough Cough [facility]* Diagnosis OAB (overactive bladder)- Primary Hypertonicity of bladder [facility]* Diagnosis Nocturia- Primary Urinary frequency OAB (overactive bladder) Hypertonicity of bladder [facility]* Diagnosis Hydronephrosis with ureteropelvic junction (UPJ) obstruction [facility]* Diagnosis Kidney stone- Primary Calculus of kidney [facility] Diagnosis Urinary frequency- Primary OAB (overactive bladder) Hypertonicity of bladder Nocturia Preop examination Preoperative examination, unspecified [facility] Diagnosis NSIP (nonspecific interstitial pneumonitis) (HCC)- Primary Other specified alveolar and parietoalveolar pneumonopathies Urinary frequency OAB (overactive bladder) Hypertonicity of bladder Nocturia Preop examination Preoperative examination, unspecified [facility]* Diagnosis NSIP (nonspecific interstitial pneumonitis) (HCC)- Primary Other specified alveolar and parietoalveolar pneumonopathies Urinary frequency OAB (overactive bladder) Hypertonicity of bladder Nocturia Preop examination Preoperative examination, unspecified [facility]* Diagnosis Brad infection- Primary Candidiasis of unspecified site Urinary frequency OAB (overactive bladder) Hypertonicity of bladder Nocturia Preop examination Preoperative examination, unspecified [facility]* Diagnosis Hypothyroidism, unspecified type- Primary Brad esophagitis ([facility]) Candidiasis of the esophagus Epigastric pain Abdominal pain, epigastric Esophageal dysmotility Dyskinesia of esophagus ILD (interstitial lung disease) ([facility]) Postinflammatory pulmonary fibrosis OAB (overactive bladder) Hypertonicity of bladder Low sodium levels Hyposmolality and/or hyponatremia 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) Other disorders of neurohypophysis Thymoma, malignant (HCC) Malignant neoplasm of thymus Urinary frequency OAB (overactive bladder) Hypertonicity of bladder Nocturia Preop examination Preoperative examination, unspecified [facility] Diagnosis Preoperative examination- Primary Preoperative examination, [...] Preoperative examination, unspecified [facility]* Diagnosis Preoperative examination- Primary Preoperative examination, unspecified OAB (overactive bladder) Hypertonicity of bladder Urge urinary incontinence Urge incontinence Urinary frequency Urinary urgency Urgency of urination Urinary frequency OAB (overactive bladder) Hypertonicity of bladder Nocturia Preop examination Preoperative examination, unspecified [facility]* Diagnosis Post-operative state- Primary Other postprocedural status Urinary frequency [facility] Diagnosis Need for vaccination- Primary Need for prophylactic vaccination and inoculation against unspecified single disease [facility] Diagnosis Encounter for screening mammogram for breast cancer [facility] Gross hematuria [facility] Diagnosis NSIP (nonspecific interstitial pneumonia) ([facility]) Other specified alveolar and parietoalveolar pneumonopathies [facility]* Diagnosis Medicare annual wellness visit, initial- Primary Routine general medical examination at [facility] Hypothyroidism, unspecified type ILD (interstitial lung disease) ([facility]) Postinflammatory pulmonary fibrosis Low sodium levels Hyposmolality and/or hyponatremia OAB (overactive bladder) Hypertonicity of bladder Encounter for screening mammogram for malignant neoplasm of breast Other screening mammogram Stage 3a chronic kidney disease (HCC) Obesity, Class I, BMI 30-34.9 Obesity, unspecified [facility]* Diagnosis Encounter for screening mammogram for malignant neoplasm of breast Other screening mammogram [facility] Diagnosis Encounter for screening mammogram for malignant neoplasm of breast- Primary Other screening mammogram [facility]* Diagnosis Overactive bladder- Primary Hypertonicity of bladder Urinary frequency Dysuria Neurostimulator device in situ [facility] Diagnosis Urinary frequency- Primary Vaginal burning Other specified symptom associated with female genital organs [facility] Diagnosis NSIP (nonspecific interstitial pneumonitis) (HCC)- Primary Other specified alveolar and parietoalveolar pneumonopathies Current chronic use of systemic steroids 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 [facility] Diagnosis Overactive bladder- Primary Hypertonicity of bladder Vulvar burning Unspecified symptom associated with female genital organs Vaginal atrophy Postmenopausal atrophic vaginitis [facility]* Diagnosis Tremor- Primary Abnormal involuntary movements [facility]* Diagnosis Kidney stone Calculus of kidney [facility] Diagnosis Kidney stone- Primary Calculus of kidney [facility] Diagnosis Kidney stone- Primary Calculus of kidney [facility] Diagnosis Encounter for gynecological examination (general) (routine) without abnormal findings- Primary Pap smear for cervical cancer screening Screening for malignant neoplasm of the cervix Encounter for screening mammogram for breast cancer [facility] Diagnosis Kidney stone Calculus of kidney [facility]* Diagnosis Overactive bladder- Primary Hypertonicity of bladder Urinary frequency [facility]* Diagnosis Kidney stone- Primary Calculus of kidney Hypothyroidism, unspecified type- Primary Tremor Abnormal involuntary movements Low sodium levels Hyposmolality and/or hyponatremia ILD (interstitial lung disease) (HCC) Postinflammatory pulmonary fibrosis Stage 3a chronic kidney disease (HCC) [facility]* Diagnosis Tremor- Primary Abnormal involuntary movements [...] and behavioral disorders [facility]* Diagnosis Hyponatremia- Primary Hyposmolality and/or hyponatremia [...] interstitial cystitis- Primary [facility]* Diagnosis Hyponatremia- Primary Hyposmolality and/or hyponatremia [...] (HCC) Secondary Parkinsonism [facility]* Diagnosis Hyponatremia- Primary Hyposmolality and/or hyponatremia [...] interstitial cystitis- Primary documented in this encounter [facility] note* Diagnosis Hyponatremia- Primary Hyposmolality and/or hyponatremia [...] triglycerides Pure hyperglyceridemia [facility]* Diagnosis Hyponatremia- Primary Hyposmolality and/or hyponatremia [...] kidney disease (HCC) [facility]* Diagnosis Hyponatremia- Primary Hyposmolality and/or hyponatremia [...] kidney disease (HCC) [facility]* Diagnosis Hyponatremia- Primary Hyposmolality and/or hyponatremia [...] kidney disease (HCC) documented [facility]* Diagnosis Hyponatremia- Primary Hyposmolality and/or hyponatremia [...] Chest pain, unspecified [facility] Diagnosis Hyponatremia- Primary Hyposmolality and/or hyponatremia [...] recommendation and said she would go to [place] [facility]. [facility] Diagnosis Hyponatremia- Primary Hyposmolality and/or [...] Abnormal involuntary movements documented in this encounter [facility] note* Diagnosis Hydronephrosis with urinary obstruction due to ureteral calculus- Primary Pyelonephritis Unspecified pyelonephritis Syncope and collapse Hydronephrosis with urinary obstruction due to ureteral calculus Esophageal dysmotility Dyskinesia of esophagus Esophageal dysmotility Dyskinesia of esophagus Calculus of ureter documented in this encounter [facility] note* Diagnosis Hyponatremia- Primary Hyposmolality and/or [...] Postinflammatory pulmonary fibrosis documented in this encounter [facility] note* Diagnosis Hyponatremia- Primary Hyposmolality and/or hyponatremia [...] due to drugs documented in this encounter [facility] note* Diagnosis Hydronephrosis with urinary obstruction due to ureteral calculus- Primary [facility] Diagnosis Calculus, ureter [N20.1]- Primary Calculus of ureter documented in this encounter [facility] note* Diagnosis Hyponatremia- Primary Hyposmolality and/or [...] site unspecified- Primary [facility] Diagnosis Hyponatremia- Primary Hyposmolality and/or hyponatremia [...] site unspecified- Primary [facility] Diagnosis Hyponatremia- Primary Hyposmolality and/or [...] interstitial cystitis- Primary documented in this encounter [facility] note* Diagnosis Hyponatremia- Primary Hyposmolality and/or hyponatremia [...] in 6-8 weeks documented in this encounter [facility] note* Diagnosis Hyponatremia- Primary Hyposmolality and/or hyponatremia [...] Primary Secondary adrenal insufficiency (HCC) Glucocorticoid deficiency senior care systemic 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 documented in this encounter [facility] note* Diagnosis Hyponatremia- Primary Hyposmolality and/or hyponatremia [...] Other corticoadrenal overactivity documented in this encounter [facility] note* Diagnosis Hyponatremia- Primary Hyposmolality and/or hyponatremia [...] disease (HCC)- Primary documented in this encounter [facility] note* Diagnosis Hyponatremia- Primary Hyposmolality and/or hyponatremia [...] interstitial cystitis- Primary documented in this encounter [facility] note* Diagnosis Hyponatremia- Primary Hyposmolality and/or hyponatremia [...] both knees- Primary documented in this encounter [facility] note* Diagnosis Hyponatremia- Primary Hyposmolality and/or hyponatremia [...] of both knees documented in this encounter [facility] note* Diagnosis Hyponatremia- Primary Hyposmolality and/or hyponatremia [...] due to drugs [facility] [facility] note* Diagnosis Hyponatremia- Primary Hyposmolality and/or hyponatremia [...] f/u 6 weeks [facility] Diagnosis Hyponatremia- Primary Hyposmolality and/or [...] and parietoalveolar pneumonopathies documented in this encounter [facility] note* Diagnosis Hyponatremia- Primary Hyposmolality and/or hyponatremia [...] Pain in limb documented in this encounter [facility] note* Diagnosis Hyponatremia- Primary Hyposmolality and/or hyponatremia [...] cystitis- Primary NSIP (nonspecific interstitial pneumonitis) ([facility] Primary Other specified alveolar and parietoalveolar pneumonopathies 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 CKD stage 3b, GFR 30-44 ml/min ([facility]) [facility] Diagnosis Hyponatremia- Primary Hyposmolality and/or hyponatremia [...] Hypothyroidism, unspecified type [facility] Diagnosis Hyponatremia- Primary Hyposmolality and/or hyponatremia [...] Pain in limb [facility] Diagnosis Hyponatremia- Primary Hyposmolality and/or hyponatremia [...] Pain in limb [facility] Diagnosis Hyponatremia- Primary Hyposmolality and/or hyponatremia [...] status (age-related) (natural) [facility] Diagnosis Hyponatremia- Primary Hyposmolality and/or hyponatremia [...] arms Orthostatic hypotension [facility] Diagnosis Hyponatremia- Primary Hyposmolality and/or hyponatremia [...] Primary Gross hematuria documented in this encounter [facility] note* Diagnosis Hyponatremia- Primary Hyposmolality and/or hyponatremia [...] Calculus of kidney documented in this encounter [facility] note* Diagnosis Hyponatremia- Primary Hyposmolality and/or hyponatremia [...] Calculus of kidney [facility] Diagnosis Hyponatremia- Primary Hyposmolality and/or hyponatremia [...] kidney disease (HCC) [facility] Diagnosis Hyponatremia- Primary Hyposmolality and/or hyponatremia [...] Primary Dysuria- Primary documented in this encounter [facility] note* Diagnosis Hyponatremia- Primary Hyposmolality and/or hyponatremia [...] for breast cancer documented in this encounter [facility] note* Diagnosis Hyponatremia- Primary Hyposmolality and/or hyponatremia [...] Hypothyroidism, unspecified type documented in this encounter [facility] note* Diagnosis Hyponatremia- Primary Hyposmolality and/or hyponatremia [...] Dizziness and giddiness documented in this encounter [facility] note* Diagnosis Hyponatremia- Primary Hyposmolality and/or hyponatremia [...] Orbital pain, left [facility] Diagnosis Hyponatremia- Primary Hyposmolality and/or [...] Orbital pain, left documented in this encounter [facility] note* Diagnosis Hyponatremia- Primary Hyposmolality and/or hyponatremia [...] and parietoalveolar pneumonopathies documented in this encounter [facility] note* Diagnosis Hyponatremia- Primary Hyposmolality and/or hyponatremia [...] Nausea Nausea alone documented in this encounter [facility] note* Diagnosis Hyponatremia- Primary Hyposmolality and/or hyponatremia [...] Hypertonicity of bladder documented in this encounter [facility] note* Diagnosis Hyponatremia- Primary Hyposmolality and/or hyponatremia [...] history of fall documented in this encounter [facility] note* Diagnosis Hyponatremia- Primary Hyposmolality and/or hyponatremia [...] cystitis- Primary NSIP (nonspecific interstitial pneumonitis) ([facility]) Other specified alveolar and parietoalveolar pneumonopathies documented in this encounter [facility] note* Diagnosis Hyponatremia- Primary Hyposmolality and/or hyponatremia [...] cystitis- Primary NSIP (nonspecific interstitial pneumonitis) ([facility]) Other specified alveolar and parietoalveolar pneumonopathies documented in this encounter [facility] note* Diagnosis Hyponatremia- Primary Hyposmolality and/or hyponatremia [...] examination, unspecified NSIP (nonspecific interstitial pneumonitis) ([facility]) Other specified alveolar and parietoalveolar [...] Postinflammatory pulmonary fibrosis NSIP (nonspecific interstitial pneumonia) ([facility]) Other specified alveolar and parietoalveolar pneumonopathies Bronchiectasis without complication (HCC) Bronchiectasis without acute exacerbation Stage 3b chronic kidney disease (HCC) On Cellcept therapy documented in this encounter [facility] note* Diagnosis Hyponatremia- Primary Hyposmolality and/or hyponatremia [...] examination, unspecified NSIP (nonspecific interstitial pneumonitis) ([facility]) Other specified alveolar and parietoalveolar [...] history of fall documented in this encounter [facility] note* Diagnosis Hyponatremia- Primary Hyposmolality and/or hyponatremia [...] syndrome of menopause documented in this encounter [facility] note* Diagnosis Hyponatremia- Primary Hyposmolality and/or hyponatremia [...] history of fall documented in this encounter [facility] note* Diagnosis Hyponatremia- Primary Hyposmolality and/or hyponatremia [...] Chronic interstitial cystitis documented in this encounter [facility] note* Diagnosis Hyponatremia- Primary Hyposmolality and/or hyponatremia [...] constipation type- Primary Parkinsonism, unspecified Parkinsonism type (HCC) REM sleep behavior disorder Restless legs syndrome Restless legs syndrome (RLS) Orthostatic hypotension [facility] Diagnosis Hyponatremia- Primary Hyposmolality and/or hyponatremia [...] examination, unspecified NSIP (nonspecific interstitial pneumonitis) ([facility]) Other specified alveolar and parietoalveolar [...] whether stage 3a or 3b CKD ([facility]) documented in this encounter [facility] note* Diagnosis Hyponatremia- Primary Hyposmolality and/or hyponatremia [...] giddiness 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 (HCC)- Primary Glucocorticoid deficiency senior care systemic 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 Chronic interstitial cystitis- Primary Chronic interstitial cystitis- Primary documented in this encounter [facility] note* Diagnosis Hyponatremia- Primary Hyposmolality and/or hyponatremia [...] warts Condyloma acuminatum documented in this encounter [facility] note* Diagnosis Hyponatremia- Primary Hyposmolality and/or hyponatremia [...] manifestations fluctuate (HCC) documented in this encounter [facility] note* Diagnosis Hyponatremia- Primary Hyposmolality and/or hyponatremia [...] manifestations fluctuate (HCC) documented in this encounter [facility] note* Diagnosis Hyponatremia- Primary Hyposmolality and/or hyponatremia [...] Calculus of kidney [facility] Diagnosis Hyponatremia- Primary Hyposmolality and/or hyponatremia [...] dyskinesia present, unspecified whether manifestations fluctuate ([facility]) [facility]* Diagnosis Vaginal bleeding- Primary Other specified noninflammatory disorder of vagina Vaginal bleeding Other specified noninflammatory disorder of vagina Post-menopausal bleeding Postmenopausal bleeding Stage 3a chronic kidney disease (HCC) Post-menopausal bleeding Postmenopausal bleeding documented in this encounter [facility] note* Diagnosis Hyponatremia- Primary Hyposmolality and/or [...] Chronic interstitial cystitis- Primary Interstitial pulmonary disease (HCC) Postinflammatory pulmonary fibrosis documented in this encounter [facility] note* Diagnosis Hyponatremia- Primary Hyposmolality and/or hyponatremia [...] interstitial cystitis- Primary Chronic interstitial cystitis- Primary Vaginal bleeding- Primary Other specified noninflammatory disorder of vagina Acute cystitis with hematuria Acute cystitis Iron deficiency anemia, unspecified iron deficiency anemia type Encounter for follow-up examination after completed treatment for conditions other than malignant neoplasm [facility] Author Hilary Soto [facility] Note Date/Time November 08, 2024 8:[address] [facility] [address] [place] [address] OFFICE VISIT Date of Service: 11/08/24 MR#: [id number] Acct: [id number] Name: EREN MERCHANT Rep #: [id number] : 1960 Provider: KAUSHAL Alas Age/Sex: 64/F Location: [facility] [place] Status: Signed Intake Vital Signs 06/06/24 14:36 [...] mcg (1,000 unit) tablet (Vitamin D3) geriatric [id number]-[id number] 1 ea PO DAILY 06/28/18 History (Complete [...] HPI 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: abd pain Details: EREN SHONDA, is a 64 F who presents to [...] fallen in the past year?: Yes 11/08/24 7111 <Electronically signed by Hilary EASLEY> Date _ Hilray EASLEY Cosigner Signature: Date (if applicable) CC: ~ [facility] Work Phone: Progress note Author Hilary Soto [facility] Note Date/Time December 29, 2024 8: 23am [facility] [address] [place] [address] OFFICE VISIT Date of Service: 12/29/24 MR#: [id number] Acct: [id number] Name: EREN MERCHANT Rep #: [id number] : 1960 Provider: KAUSHAL Alas Age/Sex: 64/F Location: [facility] Status: Signed Intake Vital Signs 12/22/24 12:21 Height 5 ft 5 in Intake Visit Reasons: ABORTED COLONOSCOPY -IMPACTED 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: abd pain Allergies cetirizine (From [facility]) Allergy (Intermediate, Verified 12/22/24 12:18) Rash erythromycin [...] candidiasis stated on Diflucan and nystatin. EGD 10.22.24; severe candidiasis w/ no bleeding, LA Grade D acute and erosiveesophagitis with no bleeding, gastritis and normal duodenum. with recommendation for f/u in 8 weeks. OV 11 Pt feeling better on anti fungal medications [...] well. Start Linzess 72 mcg faily Colonoscopy 8.01.08 - Stool in the entire examined colon. - No specimens collected OV 8 patient has had just 1 bowel movement [...] Const General: cooperative, healthy appearing and comfortable HENMO Head: normal to inspection Eyes General: appearance [...] Patient was scheduled for repeat colonoscopy with GoLytely prep. - KUB - Continue Trulance - [...] Cosigner Signature: Date (if applicable) CC: ~ [facility] Work Phone: Reason for referral (narrative)* Diagnostic Procedure Only (Routine) - Authorized Specialty Diagnoses / Procedures Referred By Contac t Referred To Contact US IMAGING Diagnoses Cystocele, midline Urinary urgency Urinary frequency Procedures US FEMALE PELVIS TRANSVAG US TRANSVAGINAL Charis Lopez APRN.CNM [address] [place] [address] Us Imaging Referral ID Status Reason Start Date Expiration Date Visits Requested Visits Authorized [id number] Authorized Auto-Generat ed Referral 11/26/2021 12/26/2022 1 1 * Consult, Test, Treat (Routine) - Authorized Specialty Diagnoses / Procedures Referred By Contezio t Referred To Contact Diagnoses Cystocele, midline Urinary urgency Urinary frequency Procedures CONSULT TO URO GYNECOLOGY OFFICE/OUTPATIENT [facility] 60-74 MINUTES Charis Lopez APRN.CNM [address] [place] [address] Referral ID Status Reason Start Date Expiration Date Visits Requested Visits Authorized [id number] Authorized PCP Requested Referral Auto-Generate d Referral [...] Charis Lopez APRN.CNM [address] [place] [address] Br Imaging [address] [place] [address] Referral ID Status Reason Start Date Expiration Date Visits Requested Visits Authorized [id number] Pending Review Auto-Generat ed Referral 11/26/2021 12/26/2022 1 1 [facility] for referral (narrative)* Diagnostic Procedure Only (Routine) - Closed Specialty Diagnoses / Procedures Referred By Kim cano Referred To Contact US IMAGING Diagnoses Cystocele, midline Urinary urgency Urinary frequency Procedures US FEMALE PELVIS TRANSVAG US TRANSVAGINAL Charis Lopez APRN.CNM [address] [place] [address] Us Imaging Referral ID Status Reason Start Date Expiration Date V isits Requested Visits Authorized [id number] Closed Auto-Generate d Referral 11/26/2021 12/26/2022 1 1 [facility] for referral (narrative)* Outpatient Procedure (Routine) - Pending Review Specialty Diagnoses / Procedures Referred By Kim cano Referred To Contact [facility] Diagnoses Urinary urgency Urinary frequency Overactive bladder Procedures URODYNAMICS WHI COMPLX CYSTOMETRO W/VOID PRESS&URETHRAL PROFILE John Mg MD [address] [place] [address] [facility] [address] [place] [address] Referral ID Status Reason Start Date Expiration Date Visits Requested Visits Authorized [id number] Pending Review Auto-Generat ed Referral 2 03/16/2023 1 1 [facility] for referral (narrative)* Diagnostic Procedure Only (Routine) - Pending Review Specialty Diagnoses / Procedures Referred By Contac t Referred To Contact MOLECULAR & FUNCTIONAL IMAGING Diagnoses Hydronephrosis with ureteropelvic junction (UPJ) obstruction Procedures NM RENAL FLOW/FXN W PHARM KIDNEY IMG MORPHOLOGY VASCULAR FLOW 1 W/RX Mathew Yang Jr., MD [address] [place] [address] [facility] [address] [place] [address] Referral ID Status Reason Start Date Expiration Date Visits Requested Visits Authorized [id number] Pending Review Auto-Generat ed Referral 08/11/2022 09/10/2023 1 1 * Diagnostic Procedure Only (Routine) - Closed Specialty Diagnoses / Procedures Referred By Kim cano Referred To Contact XR IMAGING Diagnoses Kidney stone Procedures XR ABDOMEN 1V SUPINE RADIOLOGIC EXAM ABDOMEN 1 VIEW Mathew Yang Jr., MD [address] [place] [address] Xr Imaging Referral ID Status Reason Start Date Expiration Date V isits Requested Visits Authorized [id number] Closed Auto-Generate d Referral 08/11/2022 09/10/2023 1 1 [facility] for referral (narrative)* Diagnostic Procedure Only (Routine) - Closed Specialty Diagnoses / Procedures Referred By Kim cano Referred To Contact MOLECULAR & FUNCTIONAL IMAGING Diagnoses Hydronephrosis with ureteropelvic junction (UPJ) obstruction Procedures NM RENAL FLOW/FXN W PHARM KIDNEY IMG MORPHOLOGY VASCULAR FLOW 1 W/RX Mathew Yang Jr., MD [address] [place] [address] Molecular & Functional Imaging [address] [place] [address] Referral ID Status Reason Start Date Expiration Date V isits Requested Visits Authorized [id number] Closed Auto-Generate d Referral 08/11/2022 09/10/2023 1 1 [facility] for referral (narrative)* Diagnostic Procedure Only (Routine) - Pending Review Specialty Diagnoses / Procedures Referred By Kim cano Referred To Contact XR IMAGING Diagnoses Kidney stone Procedures XR ABDOMEN 1V SUPINE RADIOLOGIC EXAM ABDOMEN 1 VIEW Mathew Yang Jr., MD [address] [place] [address] Xr Imaging Referral ID Status Reason Start Date Expiration Date Visits Requested Visits Authorized [id number] Pending Review Auto-Generat ed Referral 11/04/2023 12/03/2023 1 1 T [facility] for referral (narrative)* Diagnostic Procedure Only (Routine) - Closed Specialty Diagnoses / Procedures Referred By Kim cano Referred To Contact BR IMAGING Diagnoses Encounter for screening mammogram for breast cancer Procedures CHYNA SCREENING W JENN SCREENING DIGITAL BREAST TOMOSYNTHESIS BI SCREENING MAMMOGRAPHY BI 2-VIEW BREAST INC Charis Phillips APRN.CNM [address] [place] [address] Br Imaging [address] [place] [address] Referral ID Status Reason Start Date Expiration Date V isits Requested Visits Authorized [id number] Closed Auto-Generate d Referral 11/26/2021 12/26/2022 1 1 [facility] for referral (narrative)* Diagnostic Procedure Only (Routine) - Pending Review Specialty Diagnoses / Procedures Referred By Kim cano Referred To Contact BR IMAGING Diagnoses Encounter for screening mammogram for malignant neoplasm of breast Procedures CHYNA SCREENING SCREENING MAMMOGRAPHY BI 2-VIEW BREAST INC Priyanka Lino MD [address] [place] [address] Br Imaging [address] [place] [address] Referral ID Status Reason Start Date Expiration Date Visits Requested Visits Authorized [id number] Pending Review Auto-Generat ed Referral 06/22/2023 07/21/2024 1 1 [facility] for referral (narrative)* Diagnostic Procedure Only (Routine) - Closed Specialty Diagnoses / Procedures Referred By Kim cano Referred To Contact BR IMAGING Diagnoses Encounter for screening mammogram for malignant neoplasm of breast Procedures CHYNA SCREENING W JENN SCREENING DIGITAL BREAST TOMOSYNTHESIS BI SCREENING MAMMOGRAPHY BI 2-VIEW BREAST INC Priyanka Lino MD [address] [place] [address] Br Imaging [address] [place] [address] Referral ID Status Reason Start Date Expiration Date V isits Requested Visits Authorized [id number] Closed Auto-Generate d Referral 08/09/2023 09/04/2024 1 1 T [facility] for referral (narrative)* Diagnostic Procedure Only (Routine) - Pending Review Specialty Diagnoses / Procedures Referred By Kim cano Referred To Contact XR IMAGING Diagnoses Kidney stone Procedures XR ABDOMEN 1V SUPINE RADIOLOGIC EXAM ABDOMEN 1 VIEW Mathew Yang Jr., MD [address] [place] [address] [place] [address] Referral ID Status Reason Start Date Expiration Date Visits Requested Visits Authorized [id number] Pending Review Auto-Generat ed Referral 12/23/2023 12/21/2024 1 1 [facility] for referral (narrative)* Diagnostic Procedure Only (Routine) - Authorized Specialty Diagnoses / Procedures Referred By Contac t Referred To Contact BR IMAGING Diagnoses Encounter for screening mammogram for breast cancer Procedures CHYNA SCREENING W JENN SCREENING DIGITAL BREAST TOMOSYNTHESIS BI SCREENING MAMMOGRAPHY BI 2-VIEW BREAST INC Charis Phillips APRN.CNM [address] [place] [address] Br Imaging [address] [place] [address] Referral ID Status Reason Start Date Expiration Date Visits Requested Visits Authorized [id number] Authorized Auto-Generat ed Referral 11/29/2023 12/28/2024 1 1 [facility] for referral (narrative)* Diagnostic Procedure Only (Routine) - Authorized Specialty Diagnoses / Procedures [facility] To Contact XR IMAG[facility] Diagnoses Kidney stone Procedures XR ABDOMEN 1V SUPINE RADIOLOGIC EXAM ABDOMEN 1 VIEW Mathew Yang Jr., MD [address] [place] [address] [place] [address] Referral ID Status Reason Start Date Expiration Date Visits Requested Visits Authorized [id number] Authorized Auto-Generat ed Referral 12/20/2024 01/19/2025 1 1 [facility] for referral (narrative)* Diagnostic Procedure Only (Routine) - Closed Specialty Diagnoses / Procedures [facility] Referred To Contact XR IMAG[facility] Diagnoses Kidney stone Procedures XR ABDOMEN 1V SUPINE RADIOLOGIC EXAM ABDOMEN 1 [place] [address] [place] [address] [place] [address] Referral ID Status Reason Start Date Expiration Date V isits Requested Visits Authorized [id number] Closed Auto-Generate d Referral 08/11/2022 09/10/2023 1 1 [facility] for referral (narrative)* Diagnostic Procedure Only (Routine) - Closed Specialty Diagnoses / Procedures Referred By Contac t Referred To Contact XR IMAGING Diagnoses Acute pain of both knees Procedures XR KNEE GENERAL 4V AP BOTH/PA BOTH/LAT/MERC BILATERAL RADIOLOGIC EXAM KNEE COMPLETE 4/MORE VIEWS Jacqueline Valadez APRN.CNP [address] [place] [address] [place] [address] Referral ID Status Reason Start Date Expiration Date V isits Requested Visits Authorized [id number] Closed Auto-Generate d Referral 05/24/2024 06/23/2025 1 1 [facility] for referral (narrative)* Diagnostic Procedure Only (Routine) - New Request Specialty Diagnoses / Procedures Referred By Contac t Referred To Contact XR IMAGING Diagnoses Right hand pain Procedures XR HAND GENERAL 3V PA/LAT/OBL RIGHT RADEX HAND MINIMUM 3 VIEWS Raul Juan MD [address] [place] [address] [place] [address] Referral ID Status Reason Start Date Expiration Date Visits Requested Visits Authorized [id number] New Request Auto-Generat ed Referral 06/14/2024 07/14/2025 1 1 [facility] for referral (narrative)* Outpatient Procedure (Routine) - Authorized Specialty Diagnoses / Procedures Referred By Contac t Referred To Contact [facility] Diagnoses NSIP (nonspecific interstitial pneumonitis) ([facility]) Procedures LUNG DIFFUSION CAPACITY (DLCO) DIFFUSING CAPACITY Becca Mir APRN.CNP [address] [employer] [address] [place] [address] [facility] [address] [place] [id number] Referral ID Status Reason Start Date Expiration Date Visits Requested Visits Authorized [id number] Authorized Auto-Generat ed Referral 06/20/2024 07/20/2025 1 1 * Outpatient Procedure (Routine) - Pending Review Specialty Diagnoses / Procedures Referred By Contac t Referred To Contact [facility] Diagnoses NSIP (nonspecific interstitial pneumonitis) (HCC) Procedures LUNG VOLUMES Becca Mir APRN.CNP [address] [facility] [employer] [address] [place] [address] [id number] [place] [address] Referral ID Status Reason Start Date Expiration Date Visits Requested Visits Authorized [id number] Pending Review Auto-Generat ed Referral 06/20/2024 07/20/2025 1 1 * Outpatient Procedure (Routine) - Authorized Specialty Diagnoses / Procedures Referred By Contac t Referred To Contact [facility] Diagnoses NSIP (nonspecific interstitial pneumonitis) (HCC) Procedures SPIROMETRY BASELINE ONLY SPMTRY W/VC EXPIRATORY ANYA W/WO MXML VOL VNTJ Becca Mir APRN.CNP [address] [employer] [address] [place] [address] [address] Referral ID Status Reason Start Date Expiration Date Visits Requested Visits Authorized [id number] Authorized Auto-Generat ed Referral 06/20/2024 07/20/2025 1 1 [facility]No reason for referral information [facility]Franc[facility] Work Phone: Reason for visit Narrative* Outpatient Procedure (Routine) - Closed Specialty Diagnoses / Procedures Referred By Contac t Referred To Contact [facility] Diagnoses Urinary urgency Urinary frequency Overactive bladder Procedures URODYNAMICS WHI COMPLX CYSTOMETRO W/VOID PRESS&URETHRAL PROFILE John Mg MD [address] [place] [address] [facility] [address] [place] [address] Referral ID Status Reason Start Date Expiration Date V isits Requested Visits Authorized [id number] Closed Auto-Generate d Referral 03/16/2022 03/16/2023 1 1 [facility] for visit Narrative* Diagnostic Procedure Only (Routine) - Closed Specialty Diagnoses / Procedures Referred By Kim cano Referred To Contact MOLECULAR & FUNCTIONAL IMAGING Diagnoses Hydronephrosis with ureteropelvic junction (UPJ) obstruction Procedures NM RENAL FLOW/FXN W PHARM KIDNEY IMG MORPHOLOGY VASCULAR FLOW 1 W/RX Mathew Yang Jr., MD [address] [place] [address] Molecular & Functional Imaging [address] [place] [address] Referral ID Status Reason Start Date Expiration Date V isits Requested Visits Authorized [id number] Closed Auto-Generate d Referral 08/11/2022 09/10/2023 1 1 [facility] for visit Narrative* Diagnostic Procedure Only (Routine) - Closed Specialty Diagnoses / Procedures Referred By Kim cano Referred To Contact BR IMAGING Diagnoses Encounter for screening mammogram for breast cancer Procedures CHYNA SCREENING W JENN SCREENING DIGITAL BREAST TOMOSYNTHESIS BI SCREENING MAMMOGRAPHY BI 2-VIEW BREAST INC CAD Charis Lopez, HAILE.CN [address] [place] [address] Br Imaging [address] [place] [address] Referral ID Status Reason Start Date Expiration Date V isits Requested Visits Authorized [id number] Closed Auto-Generate d Referral 11/26/2021 12/26/2022 1 1 [facility] for visit Narrative* Diagnostic Procedure Only (Routine) - Closed Specialty Diagnoses / Procedures Referred By Kim cano Referred To Contact BR IMAGING Diagnoses Encounter for screening mammogram for malignant neoplasm of breast Procedures CHYNA SCREENING W JENN SCREENING DIGITAL BREAST TOMOSYNTHESIS BI SCREENING MAMMOGRAPHY BI 2-VIEW BREAST INC Priyanka Lino MD [address] [place] [address] Br Imaging [address] [place] [address] Referral ID Status Reason Start Date Expiration Date V isits Requested Visits Authorized [id number] Closed Auto-Generate d Referral 08/09/2023 09/04/2024 1 1 [facility] for visit Narrative* Diagnostic Procedure Only (Routine) - Closed Specialty Diagnoses / Procedures Referred By Contac t Referred To Contact XR IMAGING Diagnoses Kidney stone Procedures XR ABDOMEN 1V SUPINE RADIOLOGIC EXAM ABDOMEN 1 VIEW Mathew Yang Jr., MD [address] [place] [address] [place] [address] Referral ID Status Reason Start Date Expiration Date V isits Requested Visits Authorized [id number] Closed Auto-Generate d Referral 11/04/2023 12/03/2023 1 1 [facility] for visit Narrative* Diagnostic Procedure Only (Routine) - Closed Specialty Diagnoses / Procedures Referred By Contac t Referred To Contact XR IMAGING Diagnoses Kidney stone Procedures XR ABDOMEN 1V SUPINE RADIOLOGIC EXAM ABDOMEN 1 VIEW Mathew Yang Jr., MD [address] [place] [address] [place] [address] Referral ID Status Reason Start Date Expiration Date V isits Requested Visits Authorized [id number] Closed Auto-Generate d Referral 11/25/2023 12/24/2024 1 1 [facility] for visit Narrative* Diagnostic Procedure Only (Routine) - Closed Specialty Diagnoses / Procedures Referred By Kim t Referred To Contact XR IMAGING Diagnoses Kidney stone Procedures XR ABDOMEN 1V SUPINE RADIOLOGIC EXAM ABDOMEN 1 VIEW Mathew Yang Jr., MD [address] [place] [address] [place] [address] Referral ID Status Reason Start Date Expiration Date V isits Requested Visits Authorized [id number] Closed Auto-Generate d Referral 08/11/2022 09/10/2023 1 1 [facility] for visit Narrative* Auth/Cert (Routine) Specialty Diagnoses / Procedures Referred By Kim t Referred To Contact Diagnoses Pyelonephritis pyelonephritis Procedures n12 Maurilio Groves MD [address] [place] [address] Phone: tel: fax: [facility] Surgical Progressive Care Unit PCU [address] [place] [address] Phone: tel: Referral ID Status Reason Start Date Expiration Date Visits Re quested Visits Authorized [id number] 1 1 [facility] for visit Narrative* Auth/Cert (Routine) Specialty Diagnoses / Procedures Referred By Kim t Referred To Contact Diagnoses Calculus of ureter Procedures MN CYSTO BLADDER W/URETERAL CATHETERIZATION MN CYSTO W/URETEROSCOPY W/LITHOTRIPSY MN CYSTO W/INSERT URETERAL STENT CYSTOSCOPY AND PYELOGRAM BILATERAL URETEROSCOPY, HOLMIUM LASER LITHOTRIPSY BILATERAL URETERAL STENT CHANGE Katherine Bowen MD [address] [place] [address] Phone: tel: fax: Referral ID Status Reason Start Date Expiration Date Visits Re quested Visits Authorized [id number] 03/07/2024 1 1 [facility] for visit Narrative* Diagnostic Procedure Only (Routine) - Closed Specialty Diagnoses / Procedures Referred By Kim t Referred To Contact XR IMAGING Diagnoses Acute pain of both knees Procedures XR KNEE GENERAL 4V AP BOTH/PA BOTH/LAT/MERC BILATERAL RADIOLOGIC EXAM KNEE COMPLETE 4/MORE VIEWS Jacqueline Valadez, HAILE.DIRECTOR OF FIELD COORDINATION [address] [place] [address] [place] [address] Referral ID Status Reason Start Date Expiration Date V isits Requested Visits Authorized [id number] Closed Auto-Generate d Referral 05/24/2024 06/23/2025 1 1 [facility] for visit Narrative* Diagnostic Procedure Only (Routine) - Closed Specialty Diagnoses / Procedures Referred By Kim t Referred To Contact XR IMAGING Diagnoses Right hand pain Procedures XR HAND GENERAL 3V PA/LAT/OBL RIGHT RADEX HAND MINIMUM 3 VIEWS Raul Juan MD [address] [place] [address] Phone: tel: fax: [place] [address] Referral ID Status Reason Start Date Expiration Date V isits Requested Visits Authorized [id number] Closed Auto-Generate d Referral 06/14/2024 07/14/2025 1 1 [facility] for visit Narrative* Diagnostic Procedure Only (Routine) - Closed Specialty Diagnoses / Procedures Referred By Kim t Referred To Contact BR IMAGING Diagnoses Encounter for screening mammogram for breast cancer Procedures CHYNA SCREENING W JENN SCREENING DIGITAL BREAST TOMOSYNTHESIS BI SCREENING MAMMOGRAPHY BI 2-VIEW BREAST INC GEM PeterCharis umaña APRN.CN [address] [place] [address] Phone: tel: fax: BR IMAGING [address] [place] [address] Referral ID Status Reason Start Date Expiration Date V isits Requested Visits Authorized [id number] Closed Auto-Generate d Referral 11/29/2023 12/28/2024 1 1 [facility] for visit Narrative* Diagnostic Procedure Only (Urgent) - Closed Specialty Diagnoses / Procedures Referred By Kim t Referred To Contact XR IMAGING Diagnoses Injury of head, initial encounter Orbital pain, left Procedures XR FACIAL BONES 3V AP/LAT/DE JESUS RADEX FACIAL BONES COMPLETE MINIMUM 3 VIEWS Jasmyne Day MD [address] [place] [address] Phone: tel: fax: [place] [address] Referral ID Status Reason Start Date Expiration Date V isits Requested Visits Authorized [id number] Closed Auto-Generate d Referral 09/11/2024 10/11/2025 1 1 [facility] for visit Narrative* MRI/CT (Routine) - Closed Specialty Diagnoses / Procedures Referred By Kim t Referred To Contact CT IMAGING Diagnoses Interstitial pulmonary disease (HCC) Procedures CT CHEST WO IVCON DIAGNOSTIC COMPUTED TOMOGRAPHY THORAX W/O Karen Werner MD [address] [place] [address] Phone: tel: fax: [place] [address] Referral ID Status Reason Start Date Expiration Date V isits Requested Visits Authorized [id number] Closed Auto-Generate d Referral 01/29/2025 11/25/2025 1 1 [facility] Advance Directives No Advanced Directives Records FoundDocuments on File Type Date Recorded 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 No December 19, 2024 12:42pm Advance Directives No September 05 015 7:49am Advance Directive Response Recorded Date/ Time Do you have a Healthcare Power of Residential Roofer Helper? Yes January 21, 2025 8:12pm Name of Medical Power of Residential Roofer Helper marcello Peoples January 21, 2025 8:12pm Do you have a Healthcare Power of Residential Roofer Helper? No December 19, 2024 12:42pm Advance Directives No September 05 015 7:49am Date Activated Date Inactivated Comments 01/22/2025 8:56 AM 01/26/2025 2:29 PM Date Activated Date Inactivated Comments 03/04/2024 2:33 PM 03/09/2024 8:00 PM Reason for Referral Specialty Diagnoses / Procedures Referred By Contac t Referred To Contact CT IMAGING Diagnoses Interstitial pulmonary disease (HCC) Procedures CT CHEST WO IVCON DIAGNOSTIC COMPUTED TOMOGRAPHY THORAX W/O CNTRST Olbrych, Sam, MD [address] [place] [address] Ct Imaging Referral ID Status Reason Start Date Expiration Date Visits Requested Visits Authorized [id number] Pending Review Auto-Generat ed Referral 02/12/2022 09/11/2022 1 1 Specialty Diagnoses / Procedures Referred By Contac t Referred To Contact CT IMAGING Diagnoses Lung nodules Procedures CT CHEST WO IVCON DIAGNOSTIC COMPUTED TOMOGRAPHY THORAX W/O Karen Werner MD [address] [place] [address] Ct Imaging Referral ID Status Reason Start Date Expiration Date Visits Requested Visits Authorized [id number] Pending Review Auto-Generat ed Referral 03/18/2023 1 1 Specialty Diagnoses / Procedures Referred By Contac t Referred To Contact CT IMAGING Diagnoses Interstitial pulmonary disease (HCC) NSIP (nonspecific interstitial pneumonia) (HCC) Procedures CT CHEST WO IVCON DIAGNOSTIC COMPUTED TOMOGRAPHY THORAX W/O Karen Werner MD [address] [facility] [place] [address] Ct Imaging Referral ID Status Reason Start Date Expiration Date Visits Requested Visits Authorized [id number] Pending Review Auto-Generat ed Referral 10/16/2022 05/17/2023 1 1 Specialty Diagnoses / Procedures Referred By Contac t Referred To Contact Urology Diagnoses 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 Procedures CONSULT TO UROLOGY OFFICE/OUTPATIENT [facility] 60-74 MINUTES John Mg MD [address] [place] [address] Referral ID Status Reason Start Date Expiration Date Visits Requested Visits Authorized [id number] Authorized PCP Requested Referral 06/17/2022 06/17/2023 1 1 Specialty Diagnoses / Procedures Referred By Contac t Referred To Contact CT IMAGING Diagnoses Gross hematuria Procedures CT UROGRAM WO/W IVCON CT ABD & PELVIS W/O CONTRST 1+ BODY REGNS John Mg MD [address] [place] [id number] [facility] Referral ID Status Reason Start Date Expiration Date V isits Requested Visits Authorized [id number] Closed Auto-Generate d Referral 05/22/2022 07/31/2022 1 1 Specialty Diagnoses / Procedures Referred By Contac t Referred To Contact CT IMAGING Diagnoses Interstitial pulmonary disease (HCC) NSIP (nonspecific interstitial pneumonia) (HCC) Procedures CT CHEST WO IVCON DIAGNOSTIC COMPUTED TOMOGRAPHY THORAX W/O Karen Werner MD [address] [place] [address] Ct Imaging [facility] Referral ID Status Reason Start Date Expiration Date V isits Requested Visits Authorized [id number] Closed Auto-Generate d Referral 10/13/2022 12/12/2022 1 1 Specialty Diagnoses / Procedures Referred By Contac t Referred To Contact CT IMAGING Diagnoses Lung nodules Procedures CT CHEST WO IVCON DIAGNOSTIC COMPUTED TOMOGRAPHY THORAX W/O Karen Werner MD [address] [place] [address] Ct Imaging [facility] Referral ID Status Reason Start Date Expiration Date V isits Requested Visits Authorized [id number] Closed Auto-Generate d Referral 2022 05/25/2022 1 1 Specialty Diagnoses / Procedures Referred By Contac t Referred To Contact CT IMAGING Diagnoses Interstitial pulmonary disease (HCC) Procedures CT CHEST WO IVCON DIAGNOSTIC COMPUTED TOMOGRAPHY THORAX W/O Karen Werner MD [address] [place] [address] Ct Imaging [facility] Referral ID Status Reason Start Date Expiration Date Visits Requested Visits Authorized [id number] Authorized Auto-Generat ed Referral 11/01/2023 10/15/2024 1 1 Specialty Diagnoses / Procedures Referred By Contac t Referred To Contact [facility] Diagnoses Overactive bladder Procedures CONSULT TO PHYSICAL THERAPY PHYSICAL THERAPY EVALUATION HIGH COMPLEX 45 MINS Tariq Brooks, DUST BOX TENDER.DIRECTOR OF FIELD COORDINATION [address] [place] [address] [facility] [address] [place] [address] Referral ID Status Reason Start Date Expiration Date Visits Requested Visits Authorized [id number] Pending Review Auto-Generat ed Referral 10/07/2023 10/06/2024 1 1 Specialty Diagnoses / Procedures Referred By Contac t Referred To Contact Neurology Diagnoses Tremor Procedures CONSULT TO NEUROLOGY OFFICE/OUTPATIENT NEW HIGH MDM 60 MINUTES Jacqueline Valadez APRN.DIRECTOR OF FIELD COORDINATION [address] [place] [address] Referral ID Status Reason Start Date Expiration Date Visits Requested Visits Authorized [id number] Authorized PCP Requested Referral 10/14/2023 10/13/2024 1 1 Specialty Diagnoses / Procedures Referred By Contac t Referred To Contact Diagnoses Dyskinesia, tardive Procedures PROVIDER ORDERED FOLLOW UP OFFICE/OUTPATIENT NEW HIGH MDM 60 MINUTES Bogdan Roberts MD [address] [place] [address] Referral ID Status Reason Start Date Expiration Date Visits Requested Visits Authorized [id number] Authorized PCP Requested Referral 01/13/2024 04/12/2024 1 1 Referral ID Status Reason Start Date Expiration Date Visits Requested Visits Authorized [id number] Authorized PCP Requested Referral 04/12/2024 1 1 Referral ID Status Reason Start Date Expiration Date Visits Requested Visits Authorized [id number] Authorized Auto-Generat ed Referral 06/12/2024 05/17/2025 1 [...] 2024 9:53a m GERD (gastroesophageal reflux disease) [facility] 2024 9:53am Abdominal pain November 08, 2024 7:46 am Constipation November 08, 2024 7:46 am Reason for Visit Admit Date Abdominal pain October 11, 2024 9:53a m Candidiasis of esophagus October 11, 2024 9:53am Constipation October 11, 2024 9:53a m GERD (gastroesophageal reflux disease) [facility] 2024 9:53am Abdominal pain November 08, [...] 2024 9:53a m GERD (gastroesophageal reflux disease) [facility] 2024 9:53am Abdominal pain November 08, [...] 7:52am EORDER December 29, 2024 8: 28am 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 Admit Date COLON PAIN-LOWER ABDOMEN October 11, 2024 9:53am 1 M FU November 08, 2024 7:46 am ABORTED COLONOSCOPY -IMPACTED December 7:52am EORDER December 29, 2024 8: 28am VAG BLEED January 21, 2025 7:25pm Additional Source Comments Source Comments (unrecognize d section and content) In the event this informatio n is protected by the Federal Confidentiality of Alcohol and Drug Abuse Patient Records regulations: The Federal rules restrict any use of the information to criminally investigate or prosecute any alcohol or drug abuse patient.[facility] the event this information is protected by the Federal Confidentiality of Alcohol and Drug Abuse Patient Records regulations: The Federal rules restrict any use of the information to criminally investigate or prosecute any alcohol or drug abuse patient.[facility]In the event this information is protected by the Federal Confidentiality of Alcohol and Drug Abuse Patient Records regulations: The Federal rules restrict any use of the information to criminally investigate or prosecute any alcohol or drug abuse patient.[facility] HospitalIn the event this information is protected by the Federal Confidentiality of Alcohol and Drug Abuse Patient Records regulations: The Federal rules restrict any use of the information to criminally investigate or prosecute any alcohol or drug abuse patient.[facility]In the event this information is protected by the Federal Confidentiality of Alcohol and Drug Abuse Patient Records regulations: The Federal rules restrict any use of the information to criminally investigate or prosecute any alcohol or drug abuse patient.[facility]In the event this information is protected by the Federal Confidentiality of Alcohol and Drug Abuse Patient Records regulations: The Federal rules restrict any use of the information to criminally investigate or prosecute any alcohol or drug abuse patient.[facility] HospitalIn the event this information is protected by the Federal Confidentiality of Alcohol and Drug Abuse Patient Records regulations: The Federal rules restrict any use of the information to criminally investigate or prosecute any alcohol or drug abuse patient.[facility] HospitalIn the event this information is protected by the Federal Confidentiality of Alcohol and Drug Abuse Patient Records regulations: The Federal rules restrict any use of the information to criminally investigate or prosecute any alcohol or drug abuse patient.[facility] HospitalIn the event this information is protected by the Federal Confidentiality of Alcohol and Drug Abuse Patient Records regulations: The Federal rules restrict any use of the information to criminally investigate or prosecute any alcohol or drug abuse patient.[facility] HospitalIn the event this information is protected by the Federal Confidentiality of Alcohol and Drug Abuse Patient Records regulations: The Federal rules restrict any use of the information to criminally investigate or prosecute any alcohol or drug abuse patient.[facility] HospitalIn the event this information is protected by the Federal Confidentiality of Alcohol and Drug Abuse Patient Records regulations: The Federal rules restrict any use of the information to criminally investigate or prosecute any alcohol or drug abuse patient.[facility] HospitalIn the event this information is protected by the Federal Confidentiality of Alcohol and Drug Abuse Patient Records regulations: The Federal rules restrict any use of the information to criminally investigate or prosecute any alcohol or drug abuse patient.[facility] HospitalIn the event this information is protected by the Federal Confidentiality of Alcohol and Drug Abuse Patient Records regulations: The Federal rules restrict any use of the information to criminally investigate or prosecute any alcohol or drug abuse patient.[facility] HospitalIn the event this information is protected by the Federal Confidentiality of Alcohol and Drug Abuse Patient Records regulations: The Federal rules restrict any use of the information to criminally investigate or prosecute any alcohol or drug abuse patient.[facility] HospitalIn the event this information is protected by the Federal Confidentiality of Alcohol and Drug Abuse Patient Records regulations: The Federal rules restrict any use of the information to criminally investigate or prosecute any alcohol or drug abuse patient.[facility] HospitalIn the event this information is protected by the Federal Confidentiality of Alcohol and Drug Abuse Patient Records regulations: The Federal rules restrict any use of the information to criminally investigate or prosecute any alcohol or drug abuse patient.[facility] HospitalIn the event this information is protected by the Federal Confidentiality of Alcohol and Drug Abuse Patient Records regulations: The Federal rules restrict any use of the information to criminally investigate or prosecute any alcohol or drug abuse patient.[facility] HospitalIn the event this information is protected by the Federal Confidentiality of Alcohol and Drug Abuse Patient Records regulations: The Federal rules restrict any use of the information to criminally investigate or prosecute any alcohol or drug abuse patient.[facility] HospitalIn the event this information is protected by the Federal Confidentiality of Alcohol and Drug Abuse Patient Records regulations: The Federal rules restrict any use of the information to criminally investigate or prosecute any alcohol or drug abuse patient.[facility] HospitalIn the event this information is protected by the Federal Confidentiality of Alcohol and Drug Abuse Patient Records regulations: The Federal rules restrict any use of the information to criminally investigate or prosecute any alcohol or drug abuse patient.[facility] HospitalIn the event this information is protected by the Federal Confidentiality of Alcohol and Drug Abuse Patient Records regulations: The Federal rules restrict any use of the information to criminally investigate or prosecute any alcohol or drug abuse patient.[facility] HospitalIn the event this information is protected by the Federal Confidentiality of Alcohol and Drug Abuse Patient Records regulations: The Federal rules restrict any use of the information to criminally investigate or prosecute any alcohol or drug abuse patient.[facility] HospitalIn the event this information is protected by the Federal Confidentiality of Alcohol and Drug Abuse Patient Records regulations: The Federal rules restrict any use of the information to criminally investigate or prosecute any alcohol or drug abuse patient.[facility] HospitalIn the event this information is protected by the Federal Confidentiality of Alcohol and Drug Abuse Patient Records regulations: The Federal rules restrict any use of the information to criminally investigate or prosecute any alcohol or drug abuse patient.[facility] HospitalIn the event this information is protected by the Federal Confidentiality of Alcohol and Drug Abuse Patient Records regulations: The Federal rules restrict any use of the information to criminally investigate or prosecute any alcohol or drug abuse patient.[facility] HospitalIn the event this information is protected by the Federal Confidentiality of Alcohol and Drug Abuse Patient Records regulations: The Federal rules restrict any use of the information to criminally investigate or prosecute any alcohol or drug abuse patient.[facility] HospitalIn the event this information is protected by the Federal Confidentiality of Alcohol and Drug Abuse Patient Records regulations: The Federal rules restrict any use of the information to criminally investigate or prosecute any alcohol or drug abuse patient.[facility] HospitalIn the event this information is protected by the Federal Confidentiality of Alcohol and Drug Abuse Patient Records regulations: The Federal rules restrict any use of the information to criminally investigate or prosecute any alcohol or drug abuse patient.[facility] HospitalIn the event this information is protected by the Federal Confidentiality of Alcohol and Drug Abuse Patient Records regulations: The Federal rules restrict any use of the information to criminally investigate or prosecute any alcohol or drug abuse patient.[facility] HospitalIn the event this information is protected by the Federal Confidentiality of Alcohol and Drug Abuse Patient Records regulations: The Federal rules restrict any use of the information to criminally investigate or prosecute any alcohol or drug abuse patient.[facility] ClinicIn the event this information is protected by the Federal Confidentiality of Alcohol and Drug Abuse Patient Records regulations: The Federal rules restrict any use of the information to criminally investigate or prosecute any alcohol or drug abuse patient.[facility] HospitalIn the event this information is protected by the Federal Confidentiality of Alcohol and Drug Abuse Patient Records regulations: The Federal rules restrict any use of the information to criminally investigate or prosecute any alcohol or drug abuse patient.[facility] HospitalIn the event this information is protected by the Federal Confidentiality of Alcohol and Drug Abuse Patient Records regulations: The Federal rules restrict any use of the information to criminally investigate or prosecute any alcohol or drug abuse patient.[facility] HospitalIn the event this information is protected by the Federal Confidentiality of Alcohol and Drug Abuse Patient Records regulations: The Federal rules restrict any use of the information to criminally investigate or prosecute any alcohol or drug abuse patient.[facility] HospitalIn the event this information is protected by the Federal Confidentiality of Alcohol and Drug Abuse Patient Records regulations: The Federal rules restrict any use of the information to criminally investigate or prosecute any alcohol or drug abuse patient.[facility] HospitalIn the event this information is protected by the Federal Confidentiality of Alcohol and Drug Abuse Patient Records regulations: The Federal rules restrict any use of the information to criminally investigate or prosecute any alcohol or drug abuse patient.[facility] HospitalIn the event this information is protected by the Federal Confidentiality of Alcohol and Drug Abuse Patient Records regulations: The Federal rules restrict any use of the information to criminally investigate or prosecute any alcohol or drug abuse patient.[facility] HospitalIn the event this information is protected by the Federal Confidentiality of Alcohol and Drug Abuse Patient Records regulations: The Federal rules restrict any use of the information to criminally investigate or prosecute any alcohol or drug abuse patient.[facility] HospitalIn the event this information is protected by the Federal Confidentiality of Alcohol and Drug Abuse Patient Records regulations: The Federal rules restrict any use of the information to criminally investigate or prosecute any alcohol or drug abuse patient.[facility] HospitalIn the event this information is protected by the Federal Confidentiality of Alcohol and Drug Abuse Patient Records regulations: The Federal rules restrict any use of the information to criminally investigate or prosecute any alcohol or drug abuse patient.[facility] HospitalIn the event this information is protected by the Federal Confidentiality of Alcohol and Drug Abuse Patient Records regulations: The Federal rules restrict any use of the information to criminally investigate or prosecute any alcohol or drug abuse patient.[facility] HospitalIn the event this information is protected by the Federal Confidentiality of Alcohol and Drug Abuse Patient Records regulations: The Federal rules restrict any use of the information to criminally investigate or prosecute any alcohol or drug abuse patient.[facility] HospitalIn the event this information is protected by the Federal Confidentiality of Alcohol and Drug Abuse Patient Records regulations: The Federal rules restrict any use of the information to criminally investigate or prosecute any alcohol or drug abuse patient.[facility] HospitalIn the event this information is protected by the Federal Confidentiality of Alcohol and Drug Abuse Patient Records regulations: The Federal rules restrict any use of the information to criminally investigate or prosecute any alcohol or drug abuse patient.[facility] HospitalIn the event this information is protected by the Federal Confidentiality of Alcohol and Drug Abuse Patient Records regulations: The Federal rules restrict any use of the information to criminally investigate or prosecute any alcohol or drug abuse patient.[facility] HospitalIn the event this information is protected by the Federal Confidentiality of Alcohol and Drug Abuse Patient Records regulations: The Federal rules restrict any use of the information to criminally investigate or prosecute any alcohol or drug abuse patient.[facility] HospitalIn the event this information is protected by the Federal Confidentiality of Alcohol and Drug Abuse Patient Records regulations: The Federal rules restrict any use of the information to criminally investigate or prosecute any alcohol or drug abuse patient.[facility] HospitalIn the event this information is protected by the Federal Confidentiality of Alcohol and Drug Abuse Patient Records regulations: The Federal rules restrict any use of the information to criminally investigate or prosecute any alcohol or drug abuse patient.[facility] HospitalIn the event this information is protected by the Federal Confidentiality of Alcohol and Drug Abuse Patient Records regulations: The Federal rules restrict any use of the information to criminally investigate or prosecute any alcohol or drug abuse patient.[facility] HospitalIn the event this information is protected by the Federal Confidentiality of Alcohol and Drug Abuse Patient Records regulations: The Federal rules restrict any use of the information to criminally investigate or prosecute any alcohol or drug abuse patient.[facility] HospitalIn the event this information is protected by the Federal Confidentiality of Alcohol and Drug Abuse Patient Records regulations: The Federal rules restrict any use of the information to criminally investigate or prosecute any alcohol or drug abuse patient.[facility] HospitalIn the event this information is protected by the Federal Confidentiality of Alcohol and Drug Abuse Patient Records regulations: The Federal rules restrict any use of the information to criminally investigate or prosecute any alcohol or drug abuse patient.[facility] HospitalIn the event this information is protected by the Federal Confidentiality of Alcohol and Drug Abuse Patient Records regulations: The Federal rules restrict any use of the information to criminally investigate or prosecute any alcohol or drug abuse patient.[facility] HospitalIn the event this information is protected by the Federal Confidentiality of Alcohol and Drug Abuse Patient Records regulations: The Federal rules restrict any use of the information to criminally investigate or prosecute any alcohol or drug abuse patient.[facility] HospitalIn the event this information is protected by the Federal Confidentiality of Alcohol and Drug Abuse Patient Records regulations: The Federal rules restrict any use of the information to criminally investigate or prosecute any alcohol or drug abuse patient.[facility] HospitalIn the event this information is protected by the Federal Confidentiality of Alcohol and Drug Abuse Patient Records regulations: The Federal rules restrict any use of the information to criminally investigate or prosecute any alcohol or drug abuse patient.[facility] HospitalIn the event this information is protected by the Federal Confidentiality of Alcohol and Drug Abuse Patient Records regulations: The Federal rules restrict any use of the information to criminally investigate or prosecute any alcohol or drug abuse patient.[facility] HospitalIn the event this information is protected by the Federal Confidentiality of Alcohol and Drug Abuse Patient Records regulations: The Federal rules restrict any use of the information to criminally investigate or prosecute any alcohol or drug abuse patient.[facility] HospitalIn the event this information is protected by the Federal Confidentiality of Alcohol and Drug Abuse Patient Records regulations: The Federal rules restrict any use of the information to criminally investigate or prosecute any alcohol or drug abuse patient.[facility] HospitalIn the event this information is protected by the Federal Confidentiality of Alcohol and Drug Abuse Patient Records regulations: The Federal rules restrict any use of the information to criminally investigate or prosecute any alcohol or drug abuse patient.[facility] HospitalIn the event this information is protected by the Federal Confidentiality of Alcohol and Drug Abuse Patient Records regulations: The Federal rules restrict any use of the information to criminally investigate or prosecute any alcohol or drug abuse patient.[facility] HospitalIn the event this information is protected by the Federal Confidentiality of Alcohol and Drug Abuse Patient Records regulations: The Federal rules restrict any use of the information to criminally investigate or prosecute any alcohol or drug abuse patient.[facility] HospitalIn the event this information is protected by the Federal Confidentiality of Alcohol and Drug Abuse Patient Records regulations: The Federal rules restrict any use of the information to criminally investigate or prosecute any alcohol or drug abuse patient.[facility] HospitalIn the event this information is protected by the Federal Confidentiality of Alcohol and Drug Abuse Patient Records regulations: The Federal rules restrict any use of the information to criminally investigate or prosecute any alcohol or drug abuse patient.[facility] HospitalIn the event this information is protected by the Federal Confidentiality of Alcohol and Drug Abuse Patient Records regulations: The Federal rules restrict any use of the information to criminally investigate or prosecute any alcohol or drug abuse patient.[facility] HospitalIn the event this information is protected by the Federal Confidentiality of Alcohol and Drug Abuse Patient Records regulations: The Federal rules restrict any use of the information to criminally investigate or prosecute any alcohol or drug abuse patient.[facility] HospitalIn the event this information is protected by the Federal Confidentiality of Alcohol and Drug Abuse Patient Records regulations: The Federal rules restrict any use of the information to criminally investigate or prosecute any alcohol or drug abuse patient.[facility] HospitalIn the event this information is protected by the Federal Confidentiality of Alcohol and Drug Abuse Patient Records regulations: The Federal rules restrict any use of the information to criminally investigate or prosecute any alcohol or drug abuse patient.[facility] HospitalIn the event this information is protected by the Federal Confidentiality of Alcohol and Drug Abuse Patient Records regulations: The Federal rules restrict any use of the information to criminally investigate or prosecute any alcohol or drug abuse patient.[facility] HospitalIn the event this information is protected by the Federal Confidentiality of Alcohol and Drug Abuse Patient Records regulations: The Federal rules restrict any use of the information to criminally investigate or prosecute any alcohol or drug abuse patient.[facility] HospitalIn the event this information is protected by the Federal Confidentiality of Alcohol and Drug Abuse Patient Records regulations: The Federal rules restrict any use of the information to criminally investigate or prosecute any alcohol or drug abuse patient.[facility] HospitalIn the event this information is protected by the Federal Confidentiality of Alcohol and Drug Abuse Patient Records regulations: The Federal rules restrict any use of the information to criminally investigate or prosecute any alcohol or drug abuse patient.[facility] HospitalIn the event this information is protected by the Federal Confidentiality of Alcohol and Drug Abuse Patient Records regulations: The Federal rules restrict any use of the information to criminally investigate or prosecute any alcohol or drug abuse patient.[facility] HospitalIn the event this information is protected by the Federal Confidentiality of Alcohol and Drug Abuse Patient Records regulations: The Federal rules restrict any use of the information to criminally investigate or prosecute any alcohol or drug abuse patient.[facility] HospitalIn the event this information is protected by the Federal Confidentiality of Alcohol and Drug Abuse Patient Records regulations: The Federal rules restrict any use of the information to criminally investigate or prosecute any alcohol or drug abuse patient.[facility] HospitalIn the event this information is protected by the Federal Confidentiality of Alcohol and Drug Abuse Patient Records regulations: The Federal rules restrict any use of the information to criminally investigate or prosecute any alcohol or drug abuse patient.[facility] HospitalIn the event this information is protected by the Federal Confidentiality of Alcohol and Drug Abuse Patient Records regulations: The Federal rules restrict any use of the information to criminally investigate or prosecute any alcohol or drug abuse patient.[facility] HospitalIn the event this information is protected by the Federal Confidentiality of Alcohol and Drug Abuse Patient Records regulations: The Federal rules restrict any use of the information to criminally investigate or prosecute any alcohol or drug abuse patient.[facility] HospitalIn the event this information is protected by the Federal Confidentiality of Alcohol and Drug Abuse Patient Records regulations: The Federal rules restrict any use of the information to criminally investigate or prosecute any alcohol or drug abuse patient.[facility] HospitalIn the event this information is protected by the Federal Confidentiality of Alcohol and Drug Abuse Patient Records regulations: The Federal rules restrict any use of the information to criminally investigate or prosecute any alcohol or drug abuse patient.[facility]In the event this information is protected by the Federal Confidentiality of Alcohol and Drug Abuse Patient Records regulations: The Federal rules restrict any use of the information to criminally investigate or prosecute any alcohol or drug abuse patient.[facility] HospitalIn the event this information is protected by the Federal Confidentiality of Alcohol and Drug Abuse Patient Records regulations: The Federal rules restrict any use of the information to criminally investigate or prosecute any alcohol or drug abuse patient.[facility] HospitalIn the event this information is protected by the Federal Confidentiality of Alcohol and Drug Abuse Patient Records regulations: The Federal rules restrict any use of the information to criminally investigate or prosecute any alcohol or drug abuse patient.[facility] HospitalIn the event this information is protected by the Federal Confidentiality of Alcohol and Drug Abuse Patient Records regulations: The Federal rules restrict any use of the information to criminally investigate or prosecute any alcohol or drug abuse patient.[facility] HospitalIn the event this information is protected by the Federal Confidentiality of Alcohol and Drug Abuse Patient Records regulations: The Federal rules restrict any use of the information to criminally investigate or prosecute any alcohol or drug abuse patient.[facility] HospitalIn the event this information is protected by the Federal Confidentiality of Alcohol and Drug Abuse Patient Records regulations: The Federal rules restrict any use of the information to criminally investigate or prosecute any alcohol or drug abuse patient.[facility] HospitalIn the event this information is protected by the Federal Confidentiality of Alcohol and Drug Abuse Patient Records regulations: The Federal rules restrict any use of the information to criminally investigate or prosecute any alcohol or drug abuse patient.[facility] HospitalIn the event this information is protected by the Federal Confidentiality of Alcohol and Drug Abuse Patient Records regulations: The Federal rules restrict any use of the information to criminally investigate or prosecute any alcohol or drug abuse patient.[facility] HospitalIn the event this information is protected by the Federal Confidentiality of Alcohol and Drug Abuse Patient Records regulations: The Federal rules restrict any use of the information to criminally investigate or prosecute any alcohol or drug abuse patient.[facility] HospitalIn the event this information is protected by the Federal Confidentiality of Alcohol and Drug Abuse Patient Records regulations: The Federal rules restrict any use of the information to criminally investigate or prosecute any alcohol or drug abuse patient.[facility] HospitalIn the event this information is protected by the Federal Confidentiality of Alcohol and Drug Abuse Patient Records regulations: The Federal rules restrict any use of the information to criminally investigate or prosecute any alcohol or drug abuse patient.[facility] HospitalIn the event this information is protected by the Federal Confidentiality of Alcohol and Drug Abuse Patient Records regulations: The Federal rules restrict any use of the information to criminally investigate or prosecute any alcohol or drug abuse patient.[facility] HospitalIn the event this information is protected by the Federal Confidentiality of Alcohol and Drug Abuse Patient Records regulations: The Federal rules restrict any use of the information to criminally investigate or prosecute any alcohol or drug abuse patient.[facility] HospitalIn the event this information is protected by the Federal Confidentiality of Alcohol and Drug Abuse Patient Records regulations: The Federal rules restrict any use of the information to criminally investigate or prosecute any alcohol or drug abuse patient.[facility] HospitalIn the event this information is protected by the Federal Confidentiality of Alcohol and Drug Abuse Patient Records regulations: The Federal rules restrict any use of the information to criminally investigate or prosecute any alcohol or drug abuse patient.[facility] HospitalIn the event this information is protected by the Federal Confidentiality of Alcohol and Drug Abuse Patient Records regulations: The Federal rules restrict any use of the information to criminally investigate or prosecute any alcohol or drug abuse patient.[facility] HospitalIn the event this information is protected by the Federal Confidentiality of Alcohol and Drug Abuse Patient Records regulations: The Federal rules restrict any use of the information to criminally investigate or prosecute any alcohol or drug abuse patient.[facility] HospitalIn the event this information is protected by the Federal Confidentiality of Alcohol and Drug Abuse Patient Records regulations: The Federal rules restrict any use of the information to criminally investigate or prosecute any alcohol or drug abuse patient.[facility] HospitalIn the event this information is protected by the Federal Confidentiality of Alcohol and Drug Abuse Patient Records regulations: The Federal rules restrict any use of the information to criminally investigate or prosecute any alcohol or drug abuse patient.[facility] HospitalIn the event this information is protected by the Federal Confidentiality of Alcohol and Drug Abuse Patient Records regulations: The Federal rules restrict any use of the information to criminally investigate or prosecute any alcohol or drug abuse patient.[facility] HospitalIn the event this information is protected by the Federal Confidentiality of Alcohol and Drug Abuse Patient Records regulations: The Federal rules restrict any use of the information to criminally investigate or prosecute any alcohol or drug abuse patient.[facility] HospitalIn the event this information is protected by the Federal Confidentiality of Alcohol and Drug Abuse Patient Records regulations: The Federal rules restrict any use of the information to criminally investigate or prosecute any alcohol or drug abuse patient.[facility] HospitalIn the event this information is protected by the Federal Confidentiality of Alcohol and Drug Abuse Patient Records regulations: The Federal rules restrict any use of the information to criminally investigate or prosecute any alcohol or drug abuse patient.[facility] HospitalIn the event this information is protected by the Federal Confidentiality of Alcohol and Drug Abuse Patient Records regulations: The Federal rules restrict any use of the information to criminally investigate or prosecute any alcohol or drug abuse patient.[facility] HospitalIn the event this information is protected by the Federal Confidentiality of Alcohol and Drug Abuse Patient Records regulations: The Federal rules restrict any use of the information to criminally investigate or prosecute any alcohol or drug abuse patient.[facility] HospitalIn the event this information is protected by the Federal Confidentiality of Alcohol and Drug Abuse Patient Records regulations: The Federal rules restrict any use of the information to criminally investigate or prosecute any alcohol or drug abuse patient.[facility] HospitalIn the event this information is protected by the Federal Confidentiality of Alcohol and Drug Abuse Patient Records regulations: The Federal rules restrict any use of the information to criminally investigate or prosecute any alcohol or drug abuse patient.[facility] HospitalIn the event this information is protected by the Federal Confidentiality of Alcohol and Drug Abuse Patient Records regulations: The Federal rules restrict any use of the information to criminally investigate or prosecute any alcohol or drug abuse patient.[facility] HospitalIn the event this information is protected by the Federal Confidentiality of Alcohol and Drug Abuse Patient Records regulations: The Federal rules restrict any use of the information to criminally investigate or prosecute any alcohol or drug abuse patient.[facility] HospitalIn the event this information is protected by the Federal Confidentiality of Alcohol and Drug Abuse Patient Records regulations: The Federal rules restrict any use of the information to criminally investigate or prosecute any alcohol or drug abuse patient.[facility] HospitalIn the event this information is protected by the Federal Confidentiality of Alcohol and Drug Abuse Patient Records regulations: The Federal rules restrict any use of the information to criminally investigate or prosecute any alcohol or drug abuse patient.[facility] HospitalIn the event this information is protected by the Federal Confidentiality of Alcohol and Drug Abuse Patient Records regulations: The Federal rules restrict any use of the information to criminally investigate or prosecute any alcohol or drug abuse patient.[facility] HospitalIn the event this information is protected by the Federal Confidentiality of Alcohol and Drug Abuse Patient Records regulations: The Federal rules restrict any use of the information to criminally investigate or prosecute any alcohol or drug abuse patient.[facility] HospitalIn the event this information is protected by the Federal Confidentiality of Alcohol and Drug Abuse Patient Records regulations: The Federal rules restrict any use of the information to criminally investigate or prosecute any alcohol or drug abuse patient.[facility] HospitalIn the event this information is protected by the Federal Confidentiality of Alcohol and Drug Abuse Patient Records regulations: The Federal rules restrict any use of the information to criminally investigate or prosecute any alcohol or drug abuse patient.[facility] HospitalIn the event this information is protected by the Federal Confidentiality of Alcohol and Drug Abuse Patient Records regulations: The Federal rules restrict any use of the information to criminally investigate or prosecute any alcohol or drug abuse patient.[facility] HospitalIn the event this information is protected by the Federal Confidentiality of Alcohol and Drug Abuse Patient Records regulations: The Federal rules restrict any use of the information to criminally investigate or prosecute any alcohol or drug abuse patient.[facility] HospitalIn the event this information is protected by the Federal Confidentiality of Alcohol and Drug Abuse Patient Records regulations: The Federal rules restrict any use of the information to criminally investigate or prosecute any alcohol or drug abuse patient.[facility] HospitalIn the event this information is protected by the Federal Confidentiality of Alcohol and Drug Abuse Patient Records regulations: The Federal rules restrict any use of the information to criminally investigate or prosecute any alcohol or drug abuse patient.[facility] HospitalIn the event this information is protected by the Federal Confidentiality of Alcohol and Drug Abuse Patient Records regulations: The Federal rules restrict any use of the information to criminally investigate or prosecute any alcohol or drug abuse patient.[facility] HospitalIn the event this information is protected by the Federal Confidentiality of Alcohol and Drug Abuse Patient Records regulations: The Federal rules restrict any use of the information to criminally investigate or prosecute any alcohol or drug abuse patient.[facility] HospitalIn the event this information is protected by the Federal Confidentiality of Alcohol and Drug Abuse Patient Records regulations: The Federal rules restrict any use of the information to criminally investigate or prosecute any alcohol or drug abuse patient.[facility] HospitalIn the event this information is protected by the Federal Confidentiality of Alcohol and Drug Abuse Patient Records regulations: The Federal rules restrict any use of the information to criminally investigate or prosecute any alcohol or drug abuse patient.[facility] HospitalIn the event this information is protected by the Federal Confidentiality of Alcohol and Drug Abuse Patient Records regulations: The Federal rules restrict any use of the information to criminally investigate or prosecute any alcohol or drug abuse patient.[facility] HospitalIn the event this information is protected by the Federal Confidentiality of Alcohol and Drug Abuse Patient Records regulations: The Federal rules restrict any use of the information to criminally investigate or prosecute any alcohol or drug abuse patient.[facility] HospitalIn the event this information is protected by the Federal Confidentiality of Alcohol and Drug Abuse Patient Records regulations: The Federal rules restrict any use of the information to criminally investigate or prosecute any alcohol or drug abuse patient.[facility] HospitalIn the event this information is protected by the Federal Confidentiality of Alcohol and Drug Abuse Patient Records regulations: The Federal rules restrict any use of the information to criminally investigate or prosecute any alcohol or drug abuse patient.[facility] HospitalIn the event this information is protected by the Federal Confidentiality of Alcohol and Drug Abuse Patient Records regulations: The Federal rules restrict any use of the information to criminally investigate or prosecute any alcohol or drug abuse patient.[facility] HospitalIn the event this information is protected by the Federal Confidentiality of Alcohol and Drug Abuse Patient Records regulations: The Federal rules restrict any use of the information to criminally investigate or prosecute any alcohol or drug abuse patient.[facility] HospitalIn the event this information is protected by the Federal Confidentiality of Alcohol and Drug Abuse Patient Records regulations: The Federal rules restrict any use of the information to criminally investigate or prosecute any alcohol or drug abuse patient.[facility]In the event this information is protected by the Federal Confidentiality of Alcohol and Drug Abuse Patient Records regulations: The Federal rules restrict any use of the information to criminally investigate or prosecute any alcohol or drug abuse patient.[facility] HospitalIn the event this information is protected by the Federal Confidentiality of Alcohol and Drug Abuse Patient Records regulations: The Federal rules restrict any use of the information to criminally investigate or prosecute any alcohol or drug abuse patient.[facility] HospitalIn the event this information is protected by the Federal Confidentiality of Alcohol and Drug Abuse Patient Records regulations: The Federal rules restrict any use of the information to criminally investigate or prosecute any alcohol or drug abuse patient.[facility] HospitalIn the event this information is protected by the Federal Confidentiality of Alcohol and Drug Abuse Patient Records regulations: The Federal rules restrict any use of the information to criminally investigate or prosecute any alcohol or drug abuse patient.[facility] HospitalIn the event this information is protected by the Federal Confidentiality of Alcohol and Drug Abuse Patient Records regulations: The Federal rules restrict any use of the information to criminally investigate or prosecute any alcohol or drug abuse patient.[facility] HospitalIn the event this information is protected by the Federal Confidentiality of Alcohol and Drug Abuse Patient Records regulations: The Federal rules restrict any use of the information to criminally investigate or prosecute any alcohol or drug abuse patient.[facility] HospitalIn the event this information is protected by the Federal Confidentiality of Alcohol and Drug Abuse Patient Records regulations: The Federal rules restrict any use of the information to criminally investigate or prosecute any alcohol or drug abuse patient.[facility] HospitalIn the event this information is protected by the Federal Confidentiality of Alcohol and Drug Abuse Patient Records regulations: The Federal rules restrict any use of the information to criminally investigate or prosecute any alcohol or drug abuse patient.[facility] HospitalIn the event this information is protected by the Federal Confidentiality of Alcohol and Drug Abuse Patient Records regulations: The Federal rules restrict any use of the information to criminally investigate or prosecute any alcohol or drug abuse patient.[facility] HospitalIn the event this information is protected by the Federal Confidentiality of Alcohol and Drug Abuse Patient Records regulations: The Federal rules restrict any use of the information to criminally investigate or prosecute any alcohol or drug abuse patient.[facility] HospitalIn the event this information is protected by the Federal Confidentiality of Alcohol and Drug Abuse Patient Records regulations: The Federal rules restrict any use of the information to criminally investigate or prosecute any alcohol or drug abuse patient.[facility] HospitalIn the event this information is protected by the Federal Confidentiality of Alcohol and Drug Abuse Patient Records regulations: The Federal rules restrict any use of the information to criminally investigate or prosecute any alcohol or drug abuse patient.[facility] HospitalIn the event this information is protected by the Federal Confidentiality of Alcohol and Drug Abuse Patient Records regulations: The Federal rules restrict any use of the information to criminally investigate or prosecute any alcohol or drug abuse patient.[facility] HospitalIn the event this information is protected by the Federal Confidentiality of Alcohol and Drug Abuse Patient Records regulations: The Federal rules restrict any use of the information to criminally investigate or prosecute any alcohol or drug abuse patient.[facility] HospitalIn the event this information is protected by the Federal Confidentiality of Alcohol and Drug Abuse Patient Records regulations: The Federal rules restrict any use of the information to criminally investigate or prosecute any alcohol or drug abuse patient.[facility] HospitalIn the event this information is protected by the Federal Confidentiality of Alcohol and Drug Abuse Patient Records regulations: The Federal rules restrict any use of the information to criminally investigate or prosecute any alcohol or drug abuse patient.[facility] HospitalIn the event this information is protected by the Federal Confidentiality of Alcohol and Drug Abuse Patient Records regulations: The Federal rules restrict any use of the information to criminally investigate or prosecute any alcohol or drug abuse patient.[facility] HospitalIn the event this information is protected by the Federal Confidentiality of Alcohol and Drug Abuse Patient Records regulations: The Federal rules restrict any use of the information to criminally investigate or prosecute any alcohol or drug abuse patient.[facility] HospitalIn the event this information is protected by the Federal Confidentiality of Alcohol and Drug Abuse Patient Records regulations: The Federal rules restrict any use of the information to criminally investigate or prosecute any alcohol or drug abuse patient.[facility] HospitalIn the event this information is protected by the Federal Confidentiality of Alcohol and Drug Abuse Patient Records regulations: The Federal rules restrict any use of the information to criminally investigate or prosecute any alcohol or drug abuse patient.[facility] HospitalIn the event this information is protected by the Federal Confidentiality of Alcohol and Drug Abuse Patient Records regulations: The Federal rules restrict any use of the information to criminally investigate or prosecute any alcohol or drug abuse patient.[facility] HospitalIn the event this information is protected by the Federal Confidentiality of Alcohol and Drug Abuse Patient Records regulations: The Federal rules restrict any use of the information to criminally investigate or prosecute any alcohol or drug abuse patient.[facility] HospitalIn the event this information is protected by the Federal Confidentiality of Alcohol and Drug Abuse Patient Records regulations: The Federal rules restrict any use of the information to criminally investigate or prosecute any alcohol or drug abuse patient.[facility] HospitalIn the event this information is protected by the Federal Confidentiality of Alcohol and Drug Abuse Patient Records regulations: The Federal rules restrict any use of the information to criminally investigate or prosecute any alcohol or drug abuse patient.[facility] HospitalIn the event this information is protected by the Federal Confidentiality of Alcohol and Drug Abuse Patient Records regulations: The Federal rules restrict any use of the information to criminally investigate or prosecute any alcohol or drug abuse patient.[facility] HospitalIn the event this information is protected by the Federal Confidentiality of Alcohol and Drug Abuse Patient Records regulations: The Federal rules restrict any use of the information to criminally investigate or prosecute any alcohol or drug abuse patient.[facility] HospitalIn the event this information is protected by the Federal Confidentiality of Alcohol and Drug Abuse Patient Records regulations: The Federal rules restrict any use of the information to criminally investigate or prosecute any alcohol or drug abuse patient.[facility] HospitalIn the event this information is protected by the Federal Confidentiality of Alcohol and Drug Abuse Patient Records regulations: The Federal rules restrict any use of the information to criminally investigate or prosecute any alcohol or drug abuse patient.[facility] HospitalIn the event this information is protected by the Federal Confidentiality of Alcohol and Drug Abuse Patient Records regulations: The Federal rules restrict any use of the information to criminally investigate or prosecute any alcohol or drug abuse patient.[facility] HospitalIn the event this information is protected by the Federal Confidentiality of Alcohol and Drug Abuse Patient Records regulations: The Federal rules restrict any use of the information to criminally investigate or prosecute any alcohol or drug abuse patient.[facility] HospitalIn the event this information is protected by the Federal Confidentiality of Alcohol and Drug Abuse Patient Records regulations: The Federal rules restrict any use of the information to criminally investigate or prosecute any alcohol or drug abuse patient.[facility] HospitalIn the event this information is protected by the Federal Confidentiality of Alcohol and Drug Abuse Patient Records regulations: The Federal rules restrict any use of the information to criminally investigate or prosecute any alcohol or drug abuse patient.[facility] HospitalIn the event this information is protected by the Federal Confidentiality of Alcohol and Drug Abuse Patient Records regulations: The Federal rules restrict any use of the information to criminally investigate or prosecute any alcohol or drug abuse patient.[facility] HospitalIn the event this information is protected by the Federal Confidentiality of Alcohol and Drug Abuse Patient Records regulations: The Federal rules restrict any use of the information to criminally investigate or prosecute any alcohol or drug abuse patient.[facility] HospitalIn the event this information is protected by the Federal Confidentiality of Alcohol and Drug Abuse Patient Records regulations: The Federal rules restrict any use of the information to criminally investigate or prosecute any alcohol or drug abuse patient.[facility] HospitalIn the event this information is protected by the Federal Confidentiality of Alcohol and Drug Abuse Patient Records regulations: The Federal rules restrict any use of the information to criminally investigate or prosecute any alcohol or drug abuse patient.[facility] HospitalIn the event this information is protected by the Federal Confidentiality of Alcohol and Drug Abuse Patient Records regulations: The Federal rules restrict any use of the information to criminally investigate or prosecute any alcohol or drug abuse patient.[facility] HospitalIn the event this information is protected by the Federal Confidentiality of Alcohol and Drug Abuse Patient Records regulations: The Federal rules restrict any use of the information to criminally investigate or prosecute any alcohol or drug abuse patient.[facility] HospitalIn the event this information is protected by the Federal Confidentiality of Alcohol and Drug Abuse Patient Records regulations: The Federal rules restrict any use of the information to criminally investigate or prosecute any alcohol or drug abuse patient.[facility] HospitalIn the event this information is protected by the Federal Confidentiality of Alcohol and Drug Abuse Patient Records regulations: The Federal rules restrict any use of the information to criminally investigate or prosecute any alcohol or drug abuse patient.[facility] HospitalIn the event this information is protected by the Federal Confidentiality of Alcohol and Drug Abuse Patient Records regulations: The Federal rules restrict any use of the information to criminally investigate or prosecute any alcohol or drug abuse patient.[facility] HospitalIn the event this information is protected by the Federal Confidentiality of Alcohol and Drug Abuse Patient Records regulations: The Federal rules restrict any use of the information to criminally investigate or prosecute any alcohol or drug abuse patient.[facility] HospitalIn the event this information is protected by the Federal Confidentiality of Alcohol and Drug Abuse Patient Records regulations: The Federal rules restrict any use of the information to criminally investigate or prosecute any alcohol or drug abuse patient.[facility] HospitalIn the event this information is protected by the Federal Confidentiality of Alcohol and Drug Abuse Patient Records regulations: The Federal rules restrict any use of the information to criminally investigate or prosecute any alcohol or drug abuse patient.[facility] HospitalIn the event this information is protected by the Federal Confidentiality of Alcohol and Drug Abuse Patient Records regulations: The Federal rules restrict any use of the information to criminally investigate or prosecute any alcohol or drug abuse patient.[facility] HospitalIn the event this information is protected by the Federal Confidentiality of Alcohol and Drug Abuse Patient Records regulations: The Federal rules restrict any use of the information to criminally investigate or prosecute any alcohol or drug abuse patient.[facility] HospitalIn the event this information is protected by the Federal Confidentiality of Alcohol and Drug Abuse Patient Records regulations: The Federal rules restrict any use of the information to criminally investigate or prosecute any alcohol or drug abuse patient.[facility] HospitalIn the event this information is protected by the Federal Confidentiality of Alcohol and Drug Abuse Patient Records regulations: The Federal rules restrict any use of the information to criminally investigate or prosecute any alcohol or drug abuse patient.[facility] HospitalIn the event this information is protected by the Federal Confidentiality of Alcohol and Drug Abuse Patient Records regulations: The Federal rules restrict any use of the information to criminally investigate or prosecute any alcohol or drug abuse patient.[facility] HospitalIn the event this information is protected by the Federal Confidentiality of Alcohol and Drug Abuse Patient Records regulations: The Federal rules restrict any use of the information to criminally investigate or prosecute any alcohol or drug abuse patient.[facility]In the event this information is protected by the Federal Confidentiality of Alcohol and Drug Abuse Patient Records regulations: The Federal rules restrict any use of the information to criminally investigate or prosecute any alcohol or drug abuse patient.[facility] HospitalIn the event this information is protected by the Federal Confidentiality of Alcohol and Drug Abuse Patient Records regulations: The Federal rules restrict any use of the information to criminally investigate or prosecute any alcohol or drug abuse patient.[facility] HospitalIn the event this information is protected by the Federal Confidentiality of Alcohol and Drug Abuse Patient Records regulations: The Federal rules restrict any use of the information to criminally investigate or prosecute any alcohol or drug abuse patient.[facility] HospitalIn the event this information is protected by the Federal Confidentiality of Alcohol and Drug Abuse Patient Records regulations: The Federal rules restrict any use of the information to criminally investigate or prosecute any alcohol or drug abuse patient.[facility] Care Teams (unrecognized sec tion and content) Anthropology And Archeology Instructor Relationship Specialty Start Date End Date Priyanka Smith MD [address] [place] [address] PCP - General Family Practice 12/22/17 Regulo Mendoza MD Primary Staff Physician Nephrology 06/12/21 Anthropology And Archeology Instructor Relationship Specialty Start Date End Date Priyanka Smith MD [address] [place] [address] PCP - General Family Practice 12/22/17 Regulo Mendoza MD Primary Staff Physician Nephrology 06/12/21 Anthropology And Archeology Instructor Relationship Specialty Start Date End Date Priyanka Smith MD [address] [place] [address] PCP - General Family Practice 12/22/17 Regulo Mendoza MD Primary Staff Physician Nephrology 06/12/21 Anthropology And Archeology Instructor Relationship Specialty Start Date End Date Priyanka Smith MD [address] [place] [address] PCP - General Family Practice 12/22/17 Regulo Mendoza MD Primary Staff Physician Nephrology 06/12/21 Anthropology And Archeology Instructor Relationship Specialty Start Date End Date Priyanka Smith MD [address] [place] [address] PCP - General Family Practice 12/22/17 Regulo Mendoza MD Primary Staff Physician Nephrology 06/12/21 Anthropology And Archeology Instructor Relationship Specialty Start Date End Date Priyanka Smith MD [address] [place] [address] PCP - General Family Practice 12/22/17 Regulo Mendoza MD Primary Staff Physician Nephrology 06/12/21 Anthropology And Archeology Instructor Relationship Specialty Start Date End Date Priyanka Smith MD [address] [place] [address] PCP - General Family Practice 12/22/17 Regulo Mendoza MD Primary Staff Physician Nephrology 06/12/21 Anthropology And Archeology Instructor Relationship Specialty Start Date End Date Priyanka Smith MD [address] [place] [address] PCP - General Family Practice 12/22/17 Regulo Mendoza MD Primary Staff Physician Nephrology 06/12/21 Anthropology And Archeology Instructor Relationship Specialty Start Date End Date Priyanka Smith MD [address] [place] [address] PCP - General Family Practice 12/22/17 Regulo Mendoza MD Primary Staff Physician Nephrology 06/12/21 Anthropology And Archeology Instructor Relationship Specialty Start Date End Date Priyanka Smith MD [address] [place] [address] PCP - General Family Medicine 12/22/17 Regulo Mendoza MD Primary Staff Physician Nephrology 06/12/21 Anthropology And Archeology Instructor Relationship Specialty Start Date End Date Priyanka Smith MD [address] [place] [address] PCP - General Family Medicine 12/22/17 Regulo Mendoza MD Primary Staff Physician Nephrology 06/12/21 Anthropology And Archeology Instructor Relationship Specialty Start Date End Date Priyanka Smith MD [address] [place] [address] PCP - General Family Medicine 12/22/17 Regulo Mendoza MD Primary Staff Physician Nephrology 06/12/21 Anthropology And Archeology Instructor Relationship Specialty Start Date End Date Priyanka Smith MD [address] [place] [address] PCP - General Family Medicine 12/22/17 Regulo Mendoza MD Primary Staff Physician Nephrology 06/12/21 Anthropology And Archeology Instructor Relationship Specialty Start Date End Date Priyanka Smith MD [address] [place] [address] PCP - General Family Medicine 12/22/17 Regulo Mendoza MD Primary Staff Physician Nephrology 06/12/21 Anthropology And Archeology Instructor Relationship Specialty Start Date End Date Priyanka Smith MD [address] [place] [address] PCP - General Family Medicine 12/22/17 Regulo Mendoza MD Primary Staff Physician Nephrology 06/12/21 Anthropology And Archeology Instructor Relationship Specialty Start Date End Date Priyanka Smith MD [address] [place] [address] PCP - General Family Medicine 12/22/17 Regulo Mendoza MD Primary Staff Physician Nephrology 06/12/21 Anthropology And Archeology Instructor Relationship Specialty Start Date End Date Priyanka Smith MD [address] [place] [address] PCP - General Family Medicine 12/22/17 Regulo Mendoza MD Primary Staff Physician Nephrology 06/12/21 Anthropology And Archeology Instructor Relationship Specialty Start Date End Date Priyanka Smith MD [address] [place] [address] PCP - General Family Medicine 12/22/17 Regulo Mendoza MD Primary Staff Physician Nephrology 06/12/21 Anthropology And Archeology Instructor Relationship Specialty Start Date End Date Priyanka Smith MD [address] [place] [address] PCP - General Family Medicine 12/22/17 Regulo Mendoza MD Primary Staff Physician Nephrology 06/12/21 Anthropology And Archeology Instructor Relationship Specialty Start Date End Date Priyanka Smith MD [address] [place] [address] PCP - General Family Medicine 12/22/17 Regulo Mendoza MD [address] [place] [address] Primary Staff Physician Nephrology 06/12/21 Anthropology And Archeology Instructor Relationship Specialty Start Date End Date Priyanka Smith MD [address] [place] [address] PCP - General Family Medicine 12/22/17 Regulo Mendoza MD [address] [place] [address] Primary Staff Physician Nephrology 06/12/21 Anthropology And Archeology Instructor Relationship Specialty Start Date End Date Priyanka Smith MD [address] [place] [address] PCP - General Family Medicine 12/22/17 Regulo Mendoza MD [address] [place] [address] Primary Staff Physician Nephrology 06/12/21 Anthropology And Archeology Instructor Relationship Specialty Start Date End Date Priyanka Smith MD [address] [place] [address] PCP - General Family Medicine 12/22/17 Regulo Mendoza MD [address] [place] [address] Primary Staff Physician Nephrology 06/12/21 Anthropology And Archeology Instructor Relationship Specialty Start Date End Date Priyanka Smith MD [address] [place] [address] PCP - General Family Medicine 12/22/17 Regulo Mendoza MD [address] [place] [address] Primary Staff Physician Nephrology 06/12/21 Anthropology And Archeology Instructor Relationship Specialty Start Date End Date Priyanka Smith MD [address] [place] [address] PCP - General Family Medicine 12/22/17 Regulo Mendoza MD [address] [place] [address] Primary Staff Physician Nephrology 06/12/21 Anthropology And Archeology Instructor Relationship Specialty Start Date End Date Priyanka Smith MD [address] [place] [address] PCP - General Family Medicine 12/22/17 Regulo Mendoza MD [address] [place] [address] Primary Staff Physician Nephrology 06/12/21 Anthropology And Archeology Instructor Relationship Specialty Start Date End Date Priyanka Smith MD [address] [place] [address] PCP - General Family Medicine 12/22/17 Regulo Mendoza MD [address] [place] [address] Primary Staff Physician Nephrology 06/12/21 Anthropology And Archeology Instructor Relationship Specialty Start Date End Date Priyanka Smith MD [address] [place] [address] PCP - General Family Medicine 12/22/17 Regulo Mendoza MD [address] [place] [address] Primary Staff Physician Nephrology 06/12/21 Anthropology And Archeology Instructor Relationship Specialty Start Date End Date Priyanka Smith MD [address] [place] [address] PCP - General Family Medicine 12/22/17 Regulo Mendoza MD [address] [place] [address] Primary Staff Physician Nephrology 06/12/21 Anthropology And Archeology Instructor Relationship Specialty Start Date End Date Priyanka Smith MD [address] [place] [address] PCP - General Family Medicine 12/22/17 Regulo Mendoza MD [address] [place] [address] Primary Staff Physician Nephrology 06/12/21 Anthropology And Archeology Instructor Relationship Specialty Start Date End Date Priyanka Smith MD [address] [place] [address] PCP - General Family Medicine 12/22/17 Regulo Mendoza MD [address] [place] [address] Primary Staff Physician Nephrology 06/12/21 Anthropology And Archeology Instructor Relationship Specialty Start Date End Date Priyanka Smith MD [address] [place] [address] PCP - General Family Medicine 12/22/17 Regulo Mendoza MD [address] [place] [address] Primary Staff Physician Nephrology 06/12/21 Anthropology And Archeology Instructor Relationship Specialty Start Date End Date Priyanka Smith MD [address] [place] [address] PCP - General Family Medicine 12/22/17 Regulo Mendoza MD [address] [place] [address] Primary Staff Physician Nephrology 06/12/21 Anthropology And Archeology Instructor Relationship Specialty Start Date End Date Priyanka Smith MD [address] [place] [address] PCP - General Family Medicine 12/22/17 Regulo Mendoza MD [address] [place] [address] Primary Staff Physician Nephrology 06/12/21 Anthropology And Archeology Instructor Relationship Specialty Start Date End Date Priyanka Smith MD [address] [place] [address] PCP - General Family Medicine 12/22/17 Regulo Mendoza MD [address] [place] [address] Primary Staff Physician Nephrology 06/12/21 Anthropology And Archeology Instructor Relationship Specialty Start Date End Date Priyanka Smith MD [address] [place] [address] PCP - General Family Medicine 12/22/17 Regulo Mendoza MD [address] [place] [address] Primary Staff Physician Nephrology 06/12/21 Anthropology And Archeology Instructor Relationship Specialty Start Date End Date Priyanka Smith MD [address] [place] [address] PCP - General Family Medicine 12/22/17 Regulo Mendoza MD [address] [place] [address] Primary Staff Physician Nephrology 06/12/21 Anthropology And Archeology Instructor Relationship Specialty Start Date End Date Priyanka Smith MD [address] [place] [address] PCP - General Family Medicine 12/22/17 Regulo Mendoza MD [address] [place], [place] 023081 Primary Staff Physician Nephrology 06/12/21 Anthropology And Archeology Instructor Relationship Specialty Start Date End Date Priyanka Smith MD [address] [place], [place] 776591 PCP - General Family Medicine 12/22/17 Regulo Mendoza MD [address] [place], [place] 93329[address] Primary Staff Physician Nephrology 06/12/21 Anthropology And Archeology Instructor Relationship Specialty Start Date End Date Priyanka Smith MD [address] [place], [place] 685821 PCP - General Family Medicine 12/22/17 Regulo Mendoza MD [address] [place], [place] 612581 Primary Staff Physician Nephrology 06/12/21 Anthropology And Archeology Instructor Relationship Specialty Start Date End Date Priyanka Smith MD [address] [place], [place] 644601 PCP - General Family Medicine 12/22/17 Regulo Mendoza MD [address] [place], [place] 864[address]691 Primary Staff Physician Nephrology 06/12/21 Anthropology And Archeology Instructor Relationship Specialty Start Date End Date Priyanka Smith MD [address] [place], [place] [address]1779691 PCP - General Family Medicine 12/22/17 Regulo Mendoza MD [address] [place], [place] 721881 Primary Staff Physician Nephrology 06/12/21 Anthropology And Archeology Instructor Relationship Specialty Start Date End Date Priyanka Smith MD [address] [place], [place] 504541 PCP - General Family Medicine 12/22/17 Regulo Mendoza MD [address] [place] [address] Primary Staff Physician Nephrology 06/12/21 Anthropology And Archeology Instructor Relationship Specialty Start Date End Date Priyanka Smith MD [address] [place] [address] PCP - General Family Medicine 12/22/17 Regulo Mendoza MD [address] [place] [address] Primary Staff Physician Nephrology 06/12/21 Anthropology And Archeology Instructor Relationship Specialty Start Date End Date Priyanka Smith MD [address] [place], [place] 136971 PCP - General Family Medicine 12/22/17 Regulo Mendoza MD [address] [place], [place] 20694691 Primary Staff Physician Nephrology 06/12/21 Anthropology And Archeology Instructor Relationship Specialty Start Date End Date Priyanka Smith MD [address] [place] [address] PCP - General Family Medicine 12/22/17 Regulo Mendoza MD [address] [place] [address] Primary Staff Physician Nephrology 06/12/21 Anthropology And Archeology Instructor Relationship Specialty Start Date End Date Priyanka Smith MD [address] [place] [address] PCP - General Family Medicine 12/22/17 Regulo Mendoza MD [address] [place] [address] Primary Staff Physician Nephrology 06/12/21 Anthropology And Archeology Instructor Relationship Specialty Start Date End Date Priyanka Smith MD [address] [place], [place] 494301 PCP - General Family Medicine 12/22/17 Regulo Mendoza MD [address] [place], [place] 902401 Primary Staff Physician Nephrology 06/12/21 Anthropology And Archeology Instructor Relationship Specialty Start Date End Date Priyanka Smith MD [address] [place], [place] 461961 PCP - General Family Medicine 12/22/17 Regulo Mendoza MD [address] [place] [address] Primary Staff Physician Nephrology 06/12/21 Anthropology And Archeology Instructor Relationship Specialty Start Date End Date Priyanka Smith MD [address] [place], [place] 125751 PCP - General Family Medicine 12/22/17 Regulo Mendoza MD [address] [place] [address] Primary Staff Physician Nephrology 06/12/21 Anthropology And Archeology Instructor Relationship Specialty Start Date End Date Priyanka Smith MD [address] [place], [place] 321611 PCP - General Family Medicine 12/22/17 Regulo Mendoza MD [address] [place] [address] Primary Staff Physician Nephrology 06/12/21 Anthropology And Archeology Instructor Relationship Specialty Start Date End Date Priyanka Smith MD [address] [place], [place] 112021 PCP - General Family Medicine 12/22/17 Regulo Mendoza MD [address] [place], [place] 588241 Primary Staff Physician Nephrology 06/12/21 Anthropology And Archeology Instructor Relationship Specialty Start Date End Date Priyanka Smith MD [address] [place], [place] 206141 PCP - General Family Medicine 12/22/17 Regulo Mendoza MD [address] [place], [place] 708831 Primary Staff Physician Nephrology 06/12/21 Anthropology And Archeology Instructor Relationship Specialty Start Date End Date Priyanka Smith MD [address] [facility], [place] 630741 PCP - General Family Medicine 12/22/17 Regulo Mendoza MD [address] [place] [address] Primary Staff Physician Nephrology 06/12/21 Anthropology And Archeology Instructor Relationship Specialty Start Date End Date Priyanka Smith MD [address] [facility], [place] 156731 PCP - General Family Medicine 12/22/17 Regulo Mendoza MD [address] [place] [address] Primary Staff Physician Nephrology 06/12/21 Anthropology And Archeology Instructor Relationship Specialty Start Date End Date Priyanka Smith MD [address] [facility], [place] 973801 PCP - General Family Medicine 12/22/17 Regulo Menodza MD [address] [facility], [place] 566401 Primary Staff Physician Nephrology 06/12/21 Anthropology And Archeology Instructor Relationship Specialty Start Date End Date Priyanka Smith MD [address] [facility], [place] 071291 PCP - General Family Medicine 12/22/17 Regulo Mendoza MD [address] [facility], [place] 158501 Primary Staff Physician Nephrology 06/12/21 Anthropology And Archeology Instructor Relationship Specialty Start Date End Date Priyanka Smith MD [address] [place], [place] 252351 PCP - General Family Medicine 12/22/17 Regulo Mendoza MD [address] [place] [address] Primary Staff Physician Nephrology 06/12/21 Anthropology And Archeology Instructor Relationship Specialty Start Date End Date Priyanka Smith MD [address] [place], [place] 179061 PCP - General Family Medicine 12/22/17 Regulo Mendoza MD [address] [place], [place] 168091 Primary Staff Physician Nephrology 06/12/21 Anthropology And Archeology Instructor Relationship Specialty Start Date End Date Priyanka Smith MD [address] [place], [place] 522101 PCP - General Family Medicine 12/22/17 Regulo Mendoza MD [address] [place], [place] 189701 Primary Staff Physician Nephrology 06/12/21 Anthropology And Archeology Instructor Relationship Specialty Start Date End Date Priyanka Smith MD [address] [place], [place] 965021 PCP - General Family Medicine 12/22/17 Regulo Mendoza MD [address] [place], [place] 451161 Primary Staff Physician Nephrology 06/12/21 Anthropology And Archeology Instructor Relationship Specialty Start Date End Date Priyanka Smith MD [address] [place], [place] 384391 PCP - General Family Medicine 12/22/17 Regulo Mendoza MD [address] [place], [place] 280231 Primary Staff Physician Nephrology 06/12/21 Anthropology And Archeology Instructor Relationship Specialty Start Date End Date Priyanka Smith MD [address] [place], [place] 527021 PCP - General Family Medicine 12/22/17 Regulo Mendoza MD [address] [place], [place] 703041 Primary Staff Physician Nephrology 06/12/21 Anthropology And Archeology Instructor Relationship Specialty Start Date End Date Priyanka Smith MD [address] [place], [place] 982421 PCP - General Family Medicine 12/22/17 Regulo Mendoza MD [address] [place] [address] Primary Staff Physician Nephrology 06/12/21 Anthropology And Archeology Instructor Relationship Specialty Start Date End Date Priyanka Smith MD [address] [place], [place] 99015691 PCP - General Family Medicine 12/22/17 Regulo Mendoza MD [address] [place], [place] 727401 Primary Staff Physician Nephrology 06/12/21 Anthropology And Archeology Instructor Relationship Specialty Start Date End Date Priyanka Smith MD [address] [place], [place] 993111 PCP - General Family Medicine 12/22/17 Regulo Mendoza MD [address] [place] [address] Primary Staff Physician Nephrology 06/12/21 Anthropology And Archeology Instructor Relationship Specialty Start Date End Date Priyanka Smith MD [address] [place], [place] 382381 PCP - General Family Medicine 12/22/17 Regulo Mendoza MD [address] [place] [address] Primary Staff Physician Nephrology 06/12/21 Anthropology And Archeology Instructor Relationship Specialty Start Date End Date Priyanka Smith MD [address] [place], [place] 306331 PCP - General Family Medicine 12/22/17 Regulo Mendoza MD [address] [place], [place] 473871 Primary Staff Physician Nephrology 06/12/21 Anthropology And Archeology Instructor Relationship Specialty Start Date End Date Priyanka Smith MD [address] [place], [place] 12891691 PCP - General Family Medicine 12/22/17 Regulo Mendoza MD [address] [place], [place] 205551 Primary Staff Physician Nephrology 06/12/21 Anthropology And Archeology Instructor Relationship Specialty Start Date End Date Priyanka Smith MD [address] [place], [place] 986211 PCP - General Family Medicine 12/22/17 Regulo Mendoza MD [address] [place], [place] 143651 Primary Staff Physician Nephrology 06/12/21 Anthropology And Archeology Instructor Relationship Specialty Start Date End Date Priyanka Smith MD [address] [place], [place] 60425691 PCP - General Family Medicine 12/22/17 Regulo Mendoza MD [address] [place] [address] Primary Staff Physician Nephrology 06/12/21 Anthropology And Archeology Instructor Relationship Specialty Start Date End Date Priyanka Smith MD [address] [place], [place] 120371 PCP - General Family Medicine 12/22/17 Regulo Mendoza MD [address] [place] [address] Primary Staff Physician Nephrology 06/12/21 Anthropology And Archeology Instructor Relationship Specialty Start Date End Date Priyanka Smith MD [address] [place], [place] 00760691 PCP - General Family Medicine 12/22/17 Regulo Mendoza MD [address] [place], [place] 209501 Primary Staff Physician Nephrology 06/12/21 Anthropology And Archeology Instructor Relationship Specialty Start Date End Date Priyanka Smith MD [address] [place] [address] PCP - General Family Medicine 12/22/17 Regulo Mendoza MD [address] [place] [address] Primary Staff Physician Nephrology 06/12/21 Anthropology And Archeology Instructor Relationship Specialty Start Date End Date Priyanka Smith MD [address] [place] [address] PCP - General Family Medicine 12/22/17 Regulo Mendoza MD [address] [place] [address] Primary Staff Physician Nephrology 06/12/21 Anthropology And Archeology Instructor Relationship Specialty Start Date End Date Priyanka Smith MD [address] [place] [address] PCP - General Family Medicine 12/22/17 Anthropology And Archeology Instructor Relationship Specialty Start Date End Date Priyanka Smith MD [address] [place] [address] PCP - General Family Medicine 12/22/17 Regulo Mendoza MD [address] [place] [address] Primary Staff Physician Nephrology 06/12/21 Anthropology And Archeology Instructor Relationship Specialty Start Date End Date Priyanka Smith MD [address] [place] [address] PCP - General Family Medicine 12/22/17 Regulo Mendoza MD [address] [place] [address] Primary Staff Physician Nephrology 06/12/21 Anthropology And Archeology Instructor Relationship Specialty Start Date End Date Priyanka Smith MD [address] [place], [place] 667541 PCP - General Family Medicine 12/22/17 Regulo Mendoza MD [address] [place] [address] Primary Staff Physician Nephrology 06/12/21 Anthropology And Archeology Instructor Relationship Specialty Start Date End Date Priyanka Smith MD [address] [place] [address] PCP - General Family Medicine 12/22/17 Regulo Mendoza MD [address] [place] [address] Primary Staff Physician Nephrology 06/12/21 Anthropology And Archeology Instructor Relationship Specialty Start Date End Date Priyanka Smith [address] [place] [address] PCP - General Family Medicine 03/04/24 Katherine Bowen MD [address] [place] [address] Surgeon Urology 03/05/24 Anthropology And Archeology Instructor Relationship Specialty Start Date End Date Priyanka Smith [address] [place] [address] PCP - General Family Medicine 03/04/24 Katherine Bowen MD [address] [address] Surgeon Urology 03/05/24 Anthropology And Archeology Instructor Relationship Specialty Start Date End Date Priyanka Smith [address] [place] [address] PCP - General Family Medicine 03/04/24 Katherine Bowen MD [address] [address] Surgeon Urology 03/05/24 Anthropology And Archeology Instructor Relationship Specialty Start Date End Date Priyanka Smith [address] [place] [address] PCP - General Family Medicine 03/04/24 Katherine Bowen MD [address] [address] Surgeon Urology 03/05/24 Anthropology And Archeology Instructor Relationship Specialty Start Date End Date Priyanka Smith [address] [place] [address] PCP - General Family Medicine 03/04/24 Katherine Bowen MD [address] [address] Surgeon Urology 03/05/24 Anthropology And Archeology Instructor Relationship Specialty Start Date End Date Priyanka Smith [address] [place] [address] PCP - General Family Medicine 03/04/24 Katherine Bowen MD [address] [facility] [address] [place] [address] Surgeon Urology 03/05/24 Audi Bae MD [address] [place] [address] Surgeon Urology 03/13/24 Anthropology And Archeology Instructor Relationship Specialty Start Date End Date Priyanka Smith MD [address] [place] [address] PCP - General Family Medicine 12/22/17 Regulo Mendoza MD [address] [place] [address] Primary Staff Physician Nephrology 06/12/21 Anthropology And Archeology Instructor Relationship Specialty Start Date End Date Priyanka Smith MD [address] [place] [address] PCP - General Family Medicine 12/22/17 Regulo Mendoza MD [address] [place] [address] Primary Staff Physician Nephrology 06/12/21 Anthropology And Archeology Instructor Relationship Specialty Start Date End Date Priyanka Smith MD [address] [place] [address] PCP - General Family Medicine 12/22/17 Regulo Mendoza MD [address] [place] [address] Primary Staff Physician Nephrology 06/12/21 Anthropology And Archeology Instructor Relationship Specialty Start Date End Date Priyanka Smith MD [address] [place] [address] PCP - General Family Medicine 12/22/17 Regulo Mendoza MD [address] [place] [address] Primary Staff Physician Nephrology 06/12/21 Anthropology And Archeology Instructor Relationship Specialty Start Date End Date Priyanka Smith [address] [place] [address] PCP - General Family Medicine 03/04/24 Katherine Bowen MD [address] [facility] [address] [place] [address] Surgeon Urology 03/05/24 Audi Bae MD [address] [place] [address] Surgeon Urology 03/13/24 Anthropology And Archeology Instructor Relationship Specialty Start Date End Date Priyanka Smith [address] [place] [address] PCP - General Family Medicine 03/04/24 Katherine Bowen MD [address] [place] [address] Surgeon Urology 03/05/24 Audi Bae MD [address] [place] [address] Surgeon Urology 03/13/24 Phong Blake MD [address] [place] [address] Surgeon Urology 03/24/24 Anthropology And Archeology Instructor Relationship Specialty Start Date End Date Priyanka Smith MD [address] [place], [place] 555031 PCP - General Family Medicine 12/22/17 Regulo Mendoza MD [address] [place] [address] Primary Staff Physician Nephrology 06/12/21 Anthropology And Archeology Instructor Relationship Specialty Start Date End Date Priyanka Smith [address] [place] [address] PCP - General Family Medicine 03/04/24 Katherine Bowen MD [address] [facility] 3 [place] [address] Surgeon Urology 03/05/24 Audi Bae MD [address] [facility] [address] [place] [address] Surgeon Urology 03/13/24 Phong Blake MD [address] [place] [address] Surgeon Urology 03/24/24 Anthropology And Archeology Instructor Relationship Specialty Start Date End Date Priyanka Smith MD [address] [place] [address] PCP - General Family Medicine 12/22/17 Regulo Mendoza MD [address] [place] [address] Primary Staff Physician Nephrology 06/12/21 Anthropology And Archeology Instructor Relationship Specialty Start Date End Date Priyanka Smith MD [address] [place] [address] PCP - General Family Medicine 12/22/17 Regulo Mendoza MD [address] [place] [address] Primary Staff Physician Nephrology 06/12/21 Anthropology And Archeology Instructor Relationship Specialty Start Date End Date Priyanka Smith MD [address] [place] [address] PCP - General Family Medicine 12/22/17 Regulo Mendoza MD [address] [place] [address] Primary Staff Physician Nephrology 06/12/21 Anthropology And Archeology Instructor Relationship Specialty Start Date End Date Priyanka Smith MD [address] [place] [address] PCP - General Family Medicine 12/22/17 Regulo Mendoza MD [address] [place] [address] Primary Staff Physician Nephrology 06/12/21 Jacqueline Valadez APRN.DIRECTOR OF FIELD COORDINATION [address] [place] [address] Director Digital Sales Family Medicine 04/23/24 Juwan Land APRN.DIRECTOR OF FIELD COORDINATION [address] [place] [address] Director Digital Sales Family Medicine 05/02/24 Anthropology And Archeology Instructor Relationship Specialty Start Date End Date Priyanka Smith MD [address] [place], [place] 275904 PCP - General Family Medicine 12/22/17 Regulo Mendoza MD [address] [place] [address] Primary Staff Physician Nephrology 06/12/21 Jacqueline Valadez APRN.DIRECTOR OF FIELD COORDINATION [address] [place] [address] Director Digital Sales Family [facility] 04/23/24 Juwan Land APRN.DIRECTOR OF FIELD COORDINATION [address] [place] [address] [facility]24 Anthropology And Archeology Instructor Relationship Specialty Start Date End Date Priyanka Smith MD [address] [place] [address] PCP - General Family Medicine 12/22/17 Regulo Mendoza MD [address] [place] [address] Primary Staff Physician Nephrology 06/12/21 Jacqueline Valadez APRN.DIRECTOR OF FIELD COORDINATION [address] [place] [address] [facility] 04/23/24 Juwan Land APRN.DIRECTOR OF FIELD COORDINATION [address] [place] [address] [facility] 05/02/24 Anthropology And Archeology Instructor Relationship Specialty Start Date End Date Priyanka Smith MD [address] [place] [address] PCP - General Family Medicine 12/22/17 Regulo Mendoza MD [address] [place], [place] 559321 Primary Staff Physician Nephrology 06/12/21 Jacqueline Valadez APRN.DIRECTOR OF FIELD COORDINATION [address] [place] [address] Director Digital Sales Family [facility] 04/23/24 Juwan Land APRN.DIRECTOR OF FIELD COORDINATION [address] [place] [address] [facility] 05/02/24 Anthropology And Archeology Instructor Relationship Specialty Start Date End Date Priyanka Smith MD [address] [place] [address] PCP - General Family Medicine 12/22/17 Regulo Mendoza MD [address] [place] [address] Primary Staff Physician Nephrology 06/12/21 Jacqueline Valadez APRN.DIRECTOR OF FIELD COORDINATION [address] [place] [address] Director Digital Sales Family Medicine 04/23/24 Juwan Land APRN.DIRECTOR OF FIELD COORDINATION [address] [place] [address] [facility] 05/02/24 Anthropology And Archeology Instructor Relationship Specialty Start Date End Date Priyanka Smith MD [address] [place] [address] PCP - General Family Medicine 12/22/17 Regulo Mendoza MD [address] [place] [address] Primary Staff Physician Nephrology 06/12/21 Jacqueline Valadez APRN.DIRECTOR OF FIELD COORDINATION [address] [place] [address] Director Digital Sales Family Medicine 04/23/24 Juwan Land APRN.DIRECTOR OF FIELD COORDINATION [address] [place] [address] [facility] 05/02/24 Anthropology And Archeology Instructor Relationship Specialty Start Date End Date Priyanka Smith MD [address] [place] [address] PCP - General Family Medicine 12/22/17 Regulo Mendoza MD [address] [place] [address] Primary Staff Physician Nephrology 06/12/21 Jacqueline Valadez APRN.DIRECTOR OF FIELD COORDINATION [address] [place] [address] Director Digital Sales Family Medicine 04/23/24 Juwan Land APRN.DIRECTOR OF FIELD COORDINATION [address] [place] [address] [facility] 05/02/24 Anthropology And Archeology Instructor Relationship Specialty Start Date End Date Priyanka Smith MD [address] [place] [address] PCP - General Family Medicine 12/22/17 Regulo Mendoza MD [address] [place] [address] Primary Staff Physician Nephrology 06/12/21 Jacqueline Valadez APRN.DIRECTOR OF FIELD COORDINATION [address] [place] [address] Director Digital Sales Family Medicine 04/23/24 Juwan Land APRN.DIRECTOR OF FIELD COORDINATION [address] [place] [address] [facility] 05/02/24 Anthropology And Archeology Instructor Relationship Specialty Start Date End Date Priyanka Smith MD [address] [place] [address] PCP - General Family Medicine 12/22/17 Regulo Mendoza MD [address] [place] [address] Primary Staff Physician Nephrology 06/12/21 Jacqueline Valadez APRN.DIRECTOR OF FIELD COORDINATION [address] [place] [address] Director Digital Sales Family Medicine 04/23/24 Juwan Land APRN.DIRECTOR OF FIELD COORDINATION [address] [place] [address] [facility] 05/02/24 Anthropology And Archeology Instructor Relationship Specialty Start Date End Date Priyanka Smith MD [address] [place] [address] PCP - General Family Medicine 12/22/17 Regulo Mendoza MD [address] [place] [address] Primary Staff Physician Nephrology 06/12/21 Jacqueline Valadez APRN.DIRECTOR OF FIELD COORDINATION [address] [place] [address] Director Digital Sales Family Medicine 04/23/24 Juwan Land APRN.DIRECTOR OF FIELD COORDINATION [address] [place] [address] Director Digital Sales [facility] 05/02/24 Anthropology And Archeology Instructor Relationship Specialty Start Date End Date Priyanka Smith MD [address] [place] [address] PCP - General Family Medicine 12/22/17 Regulo Mendoza MD [address] [place] [address] Primary Staff Physician Nephrology 06/12/21 Jacqueline Valadez APRN.DIRECTOR OF FIELD COORDINATION [address] [place] [address] Director Digital Sales Family [facility] 04/23/24 Juwan Land APRN.DIRECTOR OF FIELD COORDINATION [address] [place] [address] Director Digital Sales [facility] 05/02/24 Anthropology And Archeology Instructor Relationship Specialty Start Date End Date Priyanka Smith MD [address] [place] [address] PCP - General Family Medicine 12/22/17 Regulo Mendoza MD [address] [place] [address] Primary Staff Physician Nephrology 06/12/21 Jacqueline Valadez APRN.DIRECTOR OF FIELD COORDINATION [address] [facility] [place] [address] [facility] 04/23/24 Juwan Land APRN.DIRECTOR OF FIELD COORDINATION [address] [place] [address] [facility] 05/02/24 Anthropology And Archeology Instructor Relationship Specialty Start Date End Date Priyanka Smith MD [address] [place] [address] PCP - General Family Medicine 12/22/17 Regulo Mendoza MD [address] [place] [address] Primary Staff Physician Nephrology 06/12/21 Jacqueline Valadez APRN.DIRECTOR OF FIELD COORDINATION [address] [place] [address] [facility] 04/23/24 Juwan Land APRN.DIRECTOR OF FIELD COORDINATION [address] [place] [address] [facility] 05/02/24 Anthropology And Archeology Instructor Relationship Specialty Start Date End Date Priyanka Smith MD [address] [place] [address] PCP - General Family Medicine 12/22/17 Regulo Mendoza MD [address] [place] [address] Primary Staff Physician Nephrology 06/12/21 Jacqueline Valadez APRN.DIRECTOR OF FIELD COORDINATION [address] [place] [address] [facility] 04/23/24 Juwan Land APRN.DIRECTOR OF FIELD COORDINATION [address] [place] [address] [facility] 05/02/24 Anthropology And Archeology Instructor Relationship Specialty Start Date End Date Priyanka Smith MD [address] [place], [place] [address] PCP - General Family Medicine 12/22/17 Regulo Mendoza MD [address] [place] [address] Primary Staff Physician Nephrology 06/12/21 Jacqueline Valadez APRN.DIRECTOR OF FIELD COORDINATION [address] [place] [address] [facility] 04/23/24 Juwan Land APRN.DIRECTOR OF FIELD COORDINATION [address] [place] [address] [facility] 05/02/24 Anthropology And Archeology Instructor Relationship Specialty Start Date End Date Priyanka Smith MD [address] [place] [address] PCP - General Family Medicine 12/22/17 Regulo Mendoza MD [address] [place] [address] Primary Staff Physician Nephrology 06/12/21 Jacqueline Valadez APRN.DIRECTOR OF FIELD COORDINATION [address] [place] [address] [facility] 04/23/24 Juwan Land APRN.DIRECTOR OF FIELD COORDINATION [address] [place] [address] [facility] 05/02/24 Anthropology And Archeology Instructor Relationship Specialty Start Date End Date Priyanka Smith MD [address] [place] [address] PCP - General Family Medicine 12/22/17 Regulo Mendoza MD [address] [place] [address] Primary Staff Physician Nephrology 06/12/21 Jacqueline Valadez APRN.DIRECTOR OF FIELD COORDINATION [address] [place] [address] [facility] 04/23/24 Juwan Land APRN.DIRECTOR OF FIELD COORDINATION [address] [place] [address] [facility] 05/02/24 Anthropology And Archeology Instructor Relationship Specialty Start Date End Date Priyanka Smith MD [address] [place], [place] [address]55 [phone] PCP - General Family Medicine 12/22/17 Regulo Mendoza MD [address] [place] [address] Primary Staff Physician Nephrology 06/12/21 Jacqueline Valadez APRN.DIRECTOR OF FIELD COORDINATION [address] [place] [address] [facility] 04/23/24 Juwan Land APRN.DIRECTOR OF FIELD COORDINATION [address] [place] [address] [facility] 05/02/24 Anthropology And Archeology Instructor Relationship Specialty Start Date End Date Priyanka Smith MD [address] [place] [address] PCP - General Family Medicine 12/22/17 Regulo Mendoza MD [address] [place] [address] Primary Staff Physician Nephrology 06/12/21 Jacqueline Valadez APRN.DIRECTOR OF FIELD COORDINATION [address] [place] [address] [facility] 04/23/24 Juwan Land APRN.DIRECTOR OF FIELD COORDINATION [address] [place] [address] [facility] 05/02/24 Anthropology And Archeology Instructor Relationship Specialty Start Date End Date Priyanka Smith MD [address] [place] [address] PCP - General Family Medicine 12/22/17 Regulo Mendoza MD [address] [place] [address] Primary Staff Physician Nephrology 06/12/21 Jacqueline Valadez APRN.DIRECTOR OF FIELD COORDINATION [address] [place] [address] Director Digital Sales Family Medicine 04/23/24 Juwan Land APRN.DIRECTOR OF FIELD COORDINATION [address] [place] [address] Director Digital Sales Family [facility] 05/02/24 Anthropology And Archeology Instructor Relationship Specialty Start Date End Date Priyanka Smith MD [address] [place] [address] PCP - General Family Medicine 12/22/17 Regulo Mendoza MD [address] [place] [address] Primary Staff Physician Nephrology 06/12/21 Jacqueline Valadez APRN.DIRECTOR OF FIELD COORDINATION [address] [place] [address] Director Digital Sales Family [facility] 04/23/24 Juwan Land APRN.DIRECTOR OF FIELD COORDINATION [address] [place] [address] [facility] 05/02/24 Anthropology And Archeology Instructor Relationship Specialty Start Date End Date Priyanka Smith MD [address] [place] [address] PCP - General Family Medicine 12/22/17 Regulo Mendoza MD [address] [place] [address] Primary Staff Physician Nephrology 06/12/21 Jacqueline Valadez APRN.DIRECTOR OF FIELD COORDINATION [address] [place] [address] Director Digital Sales Family Medicine 04/23/24 Juwan Land APRN.DIRECTOR OF FIELD COORDINATION [address] [place] [address] Director Digital Sales Family [facility] 05/02/24 Anthropology And Archeology Instructor Relationship Specialty Start Date End Date Priyanka Smith MD [address] [place] [address] PCP - General Family Medicine 12/22/17 Regulo Mendoza MD [address] [place] [address] Primary Staff Physician Nephrology 06/12/21 Jacqueline Valadez APRN.DIRECTOR OF FIELD COORDINATION [address] [place] [address] Director Digital Sales Family Medicine 04/23/24 Juwan Land APRN.DIRECTOR OF FIELD COORDINATION [address] [place] [address] Director Digital Sales Family [facility] 05/02/24 Anthropology And Archeology Instructor Relationship Specialty Start Date End Date Priyanka Smith MD [address] [place] [address] PCP - General Family Medicine 12/22/17 Regulo Mnedoza MD [address] [place] [address] Primary Staff Physician Nephrology 06/12/21 Jacqueline Valadez APRN.DIRECTOR OF FIELD COORDINATION [address] [place] [address] Director Digital Sales Family Medicine 04/23/24 Juwan Land APRN.DIRECTOR OF FIELD COORDINATION [address] [place] [address] Director Digital Sales Family Medicine 05/02/24 Anthropology And Archeology Instructor Relationship Specialty Start Date End Date Priyanka Smith MD [address] [place] [address] PCP - General Family Medicine 12/22/17 Regulo Mendoza MD [address] [place] [address] Primary Staff Physician Nephrology 06/12/21 Jacqueline Valadez, DUST BOX TENDER.DIRECTOR OF FIELD COORDINATION [address] [place] [address] Director Digital Sales Family Medicine 04/23/24 Juwan Land DUST BOX TENDER.DIRECTOR OF FIELD COORDINATION [address] [place] [address] Director Digital Sales Family [facility] 05/02/24 Anthropology And Archeology Instructor Relationship Specialty Start Date End Date Priyanka Smith MD [address] [place] [address] PCP - General Family Medicine 12/22/17 Regulo Mendoza MD [address] [place] [address] Primary Staff Physician Nephrology 06/12/21 Jacqueline Valadez, DUST BOX TENDER.DIRECTOR OF FIELD COORDINATION [address] [place] [address] Director Digital Sales Family Medicine 04/23/24 Juwan Land APRN.DIRECTOR OF FIELD COORDINATION [address] [place] [address] Director Digital Sales Family Medicine 05/02/24 Anthropology And Archeology Instructor Relationship Specialty Start Date End Date Priyanka mSith MD [address] [place] [address] PCP - General Family Medicine 12/22/17 Regulo Mendoza MD [address] [facility] [place] [address] Primary Staff Physician Nephrology 06/12/21 Jacqueline Valadez, DUST BOX TENDER.DIRECTOR OF FIELD COORDINATION [address] [place] [address] Director Digital Sales Family Medicine 04/23/24 Juwan Land APRN.DIRECTOR OF FIELD COORDINATION [address] [place] [address] Director Digital Sales Family Medicine 05/02/24 Anthropology And Archeology Instructor Relationship Specialty Start Date End Date Priyanka Smith MD [address] [place] [address] PCP - General Family Medicine 12/22/17 Regulo Mendoza MD [address] [place] [address] Primary Staff Physician Nephrology 06/12/21 Jacqueline Valadez DUST BOX TENDER.DIRECTOR OF FIELD COORDINATION [address] [place] [address] Director Digital Sales Family Medicine 04/23/24 Juwan Land DUST BOX TENDER.DIRECTOR OF FIELD COORDINATION [address] [place] [address] Director Digital Sales Family Medicine 05/02/24 Anthropology And Archeology Instructor Relationship Specialty Start Date End Date Priyanka Smith MD [address] [place] [address] PCP - General Family Medicine 12/22/17 Regulo Mendoza MD [address] [place], [place] [address] Primary Staff Physician Nephrology 06/12/21 Juwan Land APRN.DIRECTOR OF FIELD COORDINATION [address] [place], [place] 358751 Director Digital Sales [facility] 05/02/24 Anthropology And Archeology Instructor Relationship Specialty Start Date End Date Priyanka Smith MD [address] [place], [place] [address] PCP - General Family [facility] 12/22/17 Regulo Mendoza MD [address] [place], [place] [address] Primary Staff Physician Nephrology 06/12/21 Juwan Land APRN.DIRECTOR OF FIELD COORDINATION [address] [place], [place] [address] [facility] 05/02/24 Team Status: Active Member Role Status [...] October 11, 2024 End: October 11, 2024 Anthropology And Archeology Instructor Relationship Specialty Start Date End Date Priyanka Smith MD [address] [place], [place] [address] PCP - General Family Medicine 12/22/17 Regulo Mendoza MD [address] [place], [place] 7978[address] Primary Staff Physician Nephrology 06/12/21 Jacqueline Valadez APRN.DIRECTOR OF FIELD COORDINATION [address] [place], [place] [address]991 Director Digital Sales Family Medicine 04/23/24 09/27/24 Juwan Land APRN.DIRECTOR OF FIELD COORDINATION [address] [place], [place] [address]261 Director Digital Sales Family Medicine 05/02/24 Anthropology And Archeology Instructor Relationship Specialty Start Date End Date Priyanka Smith MD [address] [place], [place] [address]31 PCP - General Family Medicine 12/22/17 Regulo Mendoza MD [address] [place], [place] 101671 Primary Staff Physician Nephrology 06/12/21 Jacqueline Valadez APRN.DIRECTOR OF FIELD COORDINATION [address] [place], [place] [address]841 Director Digital Sales Family Medicine 04/23/24 09/27/24 Juwan Land APRN.DIRECTOR OF FIELD COORDINATION [address] [place], [place] [address] Director Digital Sales [facility] 05/02/24 Anthropology And Archeology Instructor Relationship Specialty Start Date End Date Priyanka Smith MD [address] [place], [place] [address]24[address] PCP - General Family Medicine 12/22/17 Regulo Mendoza MD [address] [place] [address] Primary Staff Physician Nephrology 06/12/21 Juwan Land APRN.DIRECTOR OF FIELD COORDINATION [address] [place] [address] [facility] 05/02/24 Anthropology And Archeology Instructor Relationship Specialty Start Date End Date Priyanka Smith MD [address] [place] [address] PCP - General Family Medicine 12/22/17 Regulo Mendoza MD [address] [place] [address] Primary Staff Physician Nephrology 06/12/21 Juwan Land APRN.DIRECTOR OF FIELD COORDINATION [address] [place] [address] [facility] 05/02/24 Anthropology And Archeology Instructor Relationship Specialty Start Date End Date Priyanka Smith MD [address] [place] [address] PCP - General Family Medicine 12/22/17 Regulo Mendoza MD [address] [place] [address] Primary Staff Physician Nephrology 06/12/21 Juwan Land APRN.DIRECTOR OF FIELD COORDINATION [address] [place], [place] 278[address] [phone] [facility] 05/02/24 Anthropology And Archeology Instructor Relationship Specialty Start Date End Date Priyanka Smith MD [address] [place], [place] [address] [phone] PCP - General Family Medicine 12/22/17 Regulo Mendoza MD [address] [place], [place] 501091 Primary Staff Physician Nephrology 06/12/21 Juwan Land APRN.DIRECTOR OF FIELD COORDINATION [address] [place], [place] [address] [phone] [facility] 05/02/24 Anthropology And Archeology Instructor Relationship Specialty Start Date End Date Priyanka Smith MD [address] [place], [place] [address]22 [phone] PCP - General Family Medicine 12/22/17 Regulo Mendoza MD [address] [place], [place] [address]64[address] Primary Staff Physician Nephrology 06/12/21 Juwan Land APRN.DIRECTOR OF FIELD COORDINATION [address] [place], [place] [address]80387 [phone] [facility] 05/02/24 Team Status: Inactive Member Role Status Dates Dr. Priyanka Smith MD Primary Care Provider Active Start: November 08, 2024 End: November 08, 2024 Dr. Priyanka Simth MD Referring Provider Active Start: November 08, 2024 End: November 08, 2024 KAUSHAL Alas Attending Provider Active Start: November 08, 2024 End: November 08, 2024 Anthropology And Archeology Instructor Relationship Specialty Start Date End Date Priyanka Smith MD [address] [place], [place] [address] [phone] PCP - General Family Medicine 12/22/17 Regulo Mendoza MD [address] [place] [address] Primary Staff Physician Nephrology 06/12/21 Juwan Land APRN.DIRECTOR OF FIELD COORDINATION [address] [place] [address] Director Digital Sales Family Medicine 05/02/24 Anthropology And Archeology Instructor Relationship Specialty Start Date End Date Priyanka Smith MD [address] [place] [address] PCP - General Family Medicine 12/22/17 Regulo Mendoza MD [address] [place] [address] Primary Staff Physician Nephrology 06/12/21 Juwan Land APRN.DIRECTOR OF FIELD COORDINATION [address] [place] [address] Director Digital Sales Family [facility] 05/02/24 Anthropology And Archeology Instructor Relationship Specialty Start Date End Date Priyanka Smith MD [address] [place], [place] [address] PCP - General Family Medicine 12/22/17 Regulo Mendoza MD [address] [place] [address] Primary Staff Physician Nephrology 06/12/21 Jacqueline Valadez APRN.DIRECTOR OF FIELD COORDINATION [address] [place] [address] [facility] 04/23/24 09/27/24 Juwan Land APRN.DIRECTOR OF FIELD COORDINATION [address] [place], [place] [address] [facility] 05/02/24 Anthropology And Archeology Instructor Relationship Specialty Start Date End Date Priyanka Smith MD [address] [place], [place] [address]64[address] PCP - General Family Medicine 12/22/17 Regulo Mendoza MD [address] [place] [address] Primary Staff Physician Nephrology 06/12/21 Juwan Land APRN.DIRECTOR OF FIELD COORDINATION [address] [place] [address] [facility] 05/02/24 Anthropology And Archeology Instructor Relationship Specialty Start Date End Date Priyanka Smith MD [address] [place], [place] 418301 PCP - General Family Medicine 12/22/17 Regulo Mendoza MD [address] [place] [address] Primary Staff Physician Nephrology 06/12/21 Jacqueline Valadez APRN.DIRECTOR OF FIELD COORDINATION [address] [place] [address] [facility] 04/23/24 09/27/24 Juwan Land APRN.DIRECTOR OF FIELD COORDINATION [address] [place], [place] [address] [facility] 05/02/24 Anthropology And Archeology Instructor Relationship Specialty Start Date End Date Priyanka Smith MD [address] [place], [place] [address] PCP - General Family Medicine 12/22/17 Regulo Mendoza MD [address] [place], [place] [address] Primary Staff Physician Nephrology 06/12/21 Juwan Land APRN.DIRECTOR OF FIELD COORDINATION [address] [place], [place] [address] [facility] 05/02/24 Team Status: Active Member Role/Relationship [...] Referring Provider Active Start: December 22, 2024 Anthropology And Archeology Instructor Relationship Specialty Start Date End Date Priyanka Smith MD [address] [place], [place] [address]231 PCP - General Family Medicine 12/22/17 Regulo Mendoza MD [address] [place], [place] 845031 Primary Staff Physician Nephrology 06/12/21 Juwan Land APRN.DIRECTOR OF FIELD COORDINATION [address] [place], [place] [address] Director Digital Sales Family [facility] 05/02/24 Team Status: Inactive Member [...] December 29, 2024 End: December 29, 2024 Anthropology And Archeology Instructor Relationship Specialty Start Date End Date Priyanka Smith MD [address] [place], [place] 476771 PCP - General Family Medicine 12/22/17 Regulo Mendoza MD [address] [place], [place] [address]471 Primary Staff Physician Nephrology 06/12/21 Juwan Land APRN.DIRECTOR OF FIELD COORDINATION [address] [place], [place] [address]24201 Director Digital Sales Family [facility] 05/02/24 Team Status: Inactive Member Role/Relationship Status Dates Dr. Gonzalo Day MD Primary Care Provider Acti ve Start: January 21, 2025 End: January 22, 2025 Dr. Michelle Mosher DO Emergency Provider Active Start: January 21, 2025 End: January 22, 2025 Anthropology And Archeology Instructor Relationship Specialty Start Date End Date Priyanka Smith [address] [place], [place] [address] PCP - General Family Medicine 03/04/24 Katherine Bowen MD [address] [facility] [address] [place] [address] Surgeon Urology 03/05/24 Audi Bae MD [address] [place] [address] Surgeon Urology 03/13/24 Phong Blake MD [address] [place] [address] Surgeon Urology 03/24/24 Anthropology And Archeology Instructor Relationship Specialty Start Date End Date Priyanka Smith MD [address] [place], [place] [address]2551 PCP - General Family Medicine 12/22/17 Regulo Mendoza MD [address] [place], [place] 4098[address] Primary Staff Physician Nephrology 06/12/21 Juwan Land APRN.DIRECTOR OF FIELD COORDINATION [address] [place], [place] [address]32[address] [facility] 05/02/24 Anthropology And Archeology Instructor Relationship Specialty Start Date End Date Jasmyne Day MD [address] [place], [place] [address] PCP - General Family Medicine 01/30/25 Regulo Mendoza MD Primary Staff Physician Nephrology 06/12/21 Juwan Land APRN.DIRECTOR OF FIELD COORDINATION [address] [place], [place] [address] [facility] 05/02/24 Reason for Visit (unrecogniz ed section and content) Reason Comments PT Progress Note Specialty Diagnoses / Procedures Referred By Kim cano Referred To Contact [facility] Diagnoses Overactive bladder Procedures CONSULT TO PHYSICAL THERAPY PHYSICAL THERAPY EVALUATION HIGH COMPLEX 45 MINS Tariq Brooks DUST BOX TENDER.DIRECTOR OF FIELD COORDINATION [facility] [address] [place] [address] Referral ID Status Reason Start Date Expiration Date Visits Requested Visits Authorized [id number] Authorized Auto-Generat ed Referral 05/17/2024 05/16/2025 99 99 Reason Comments Physical Therapy Reason Comments Follow Up Specialty Diagnoses / Procedures Referred By Kim cano Referred To Contact UROL REFERENCE TEST CLERK Diagnoses OAB (overactive bladder) Procedures BOTULINUM TOXIN A PER 1 UNIT CYSTOURETHROSCOPY INJ CHEMODENERVATION BLADDER Wiley Benitez MD [address] [facility] [address] [place] [address] Chief Gauger Urol [facility] [address] [facility] [address] [place] [address] Referral ID Status Reason Start Date Expiration Date V isits Requested Visits Authorized [id number] Authorized 11/04/2023 11/02/2024 5 5 Reason Comments Spirometry Specialty Diagnoses / Procedures Referred By Contac t Referred To Contact [facility] Diagnoses NSIP (nonspecific interstitial pneumonia) [facility] Procedures SPIROMETRY BASELINE ONLY SPIROMETRY WO BRONCHODILATOR Sam Cuenca MD [address] [place] [address] Respiratory [facility] [address] [place] [address] Referral ID Status Reason Start Date Expiration Date V isits Requested Visits Authorized [id number] Closed Auto-Generate d Referral 08/11/2021 03/13/2022 1 1 Reason Comments Established Patient Reason Comments UTI Reason Comments Orders Reason Onset Date Comments Refill Request 11/26/2021 Reason Comments Radiology US Specialty Diagnoses / Procedures Referred By Contac t Referred To Contact US IMAGING Diagnoses Cystocele, midline Urinary urgency Urinary frequency Procedures US FEMALE PELVIS TRANSVAG US TRANSVAGINAL Charis Lopez APRN.CNM [address] [place] [address] Us Imaging Referral ID Status Reason Start Date Expiration Date V isits Requested Visits Authorized [id number] Closed Auto-Generate d Referral 11/26/2021 12/26/2022 1 [...] frequency Procedures CONSULT TO URO GYNECOLOGY OFFICE/OUTPATIENT [facility] MDM 60-74 MINUTES Charis Lopez APRN.[facility] [address] [place] [place] [address] Referral ID Status Reason Start Date Expiration Date V isits Requested Visits Authorized [id number] Closed PCP Requested Referral Auto-Generated Referral 11/26/2021 [...] By Contac t Referred To Contact [facility] Diagnoses ILD (interstitial lung disease) ([facility] Procedures SPIROMETRY BASELINE ONLY SPMTRY W/VC EXPIRATORY ANYA W/WO MXML VOL VNTJ Karen Alcantara MD [address] [place] [address] [address] Referral ID Status Reason Start Date Expiration Date V isits Requested Visits Authorized [id number] Closed Auto-Generate d Referral 10/30/2022 11/29/2023 1 1 Specialty Diagnoses / Procedures Referred By Contac t Referred To [facility] Diagnoses ILD (interstitial lung disease) ([facility]) Procedures LUNG VOLUMES Karen Alcantara MD [address] [place] [address] [address] Referral ID Status Reason Start Date Expiration Date V isits Requested Visits Authorized [id number] Closed Auto-Generate d Referral 11/05/2022 05/16/2023 1 1 Reason Onset Date Comments Refill Request 11/25/2022 Reason Comments Anesthesia Consult Reason Onset Date Comments Refill Request 02/08/[address] Specialty Diagnoses / Procedures Referred By Contac t Referred To Contact CT IMAGING Diagnoses Gross hematuria Procedures CT UROGRAM WO/W IVCON CT ABD & PELVIS W/O CONTRST 1+ BODY John Billings MD [address] [place] [id number] [place] [address] Referral ID Status Reason Start Date Expiration Date V isits Requested Visits Authorized [id number] Closed Auto-Generate d Referral 05/22/2022 07/31/2022 1 1 Specialty Diagnoses / Procedures Referred By Contac t Referred To Contact CT IMAGING Diagnoses Interstitial pulmonary disease (HCC) NSIP (nonspecific interstitial pneumonia) (HCC) Procedures CT CHEST WO IVCON DIAGNOSTIC COMPUTED TOMOGRAPHY THORAX W/O Karen Werner MD [address] [place] [address] [place] [address] Referral ID Status Reason Start Date Expiration Date V isits Requested Visits Authorized [id number] Closed Auto-Generate d Referral 10/13/2022 12/12/2022 1 1 Specialty Diagnoses / Procedures Referred By Contac t Referred To Contact CT IMAGING Diagnoses Lung nodules Procedures CT CHEST WO IVCON DIAGNOSTIC COMPUTED TOMOGRAPHY THORAX W/O Karen Werner MD [address] [facility] [facility] [address] Ct Imaging [id number] Referral ID Status Reason Start Date Expiration Date V isits Requested Visits Authorized [id number] Closed Auto-Generate d Referral 2022 05/25/2022 1 [...] THORAX W/O Karen Werner MD [address] [place] [address] [place] [address] Referral ID Status Reason Start Date Expiration Date V isits Requested Visits Authorized [id number] Closed Auto-Generate d Referral 11/01/2023 10/15/2024 1 1 Reason Comments Kidney Stones Reason Comments Insurance Authorization Prior Auth Denie d: Appeal Requested Reason Comments 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 - Other Reason Onset Date Comments Appointment 11/22/2023 Reason Comments Well Woman Specialty Diagnoses / Procedures Referred By Contac t Referred To Contact UROL REFERENCE TEST CLERK Diagnoses OAB (overactive bladder) Procedures BOTULINUM TOXIN A PER 1 UNIT CYSTOURETHROSCOPY INJ CHEMODENERVATION BLADDER Wiley Benitez MD [address] [facility] [address] [place] [address] Chief Gauger Urol [facility] [address] [address] Reason Comments Post-Op Visit Kidney stone Reason Comments New Patient Evaluation Specialty Diagnoses / Procedures Referred By Contac t Referred To Contact Neurology Diagnoses Tremor Procedures CONSULT TO NEUROLOGY OFFICE/OUTPATIENT NEW HIGH MDM 60 MINUTES Jacqueline Valadez APRN.DIRECTOR OF FIELD COORDINATION [address] [place] [address] Referral ID Status Reason Start Date Expiration Date V isits Requested Visits Authorized [id number] Closed PCP Requested Referral 10/14/2023 10/13/2024 1 1 Reason Comments Refill Request Reason Comments Results Labs Reason Comments Acute Visit Fall and wants to di scuss meds Reason Onset Date Comments Error (VOID this visit) 03/06/2024 Reason Onset Date Comments Hospital Follow-up 03/07/2024 Reason Onset Date Comments Procedure 03/15/2024 Reason Comments Hospital F/U Reason Comments Forms Skin Biopsy - CND Li fe Science Reason Onset Date Comments Appointment [...] To Contact Endocrinology Diagnoses 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 (HCC) 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 Procedures CONSULT TO ENDOCRINOLOGY OFFICE/OUTPATIENT NEW HIGH MDM 60 MINUTES Priyanka Smith MD [address] [place] [address] Referral ID Status Reason Start Date Expiration Date V isits Requested Visits Authorized [id number] Closed PCP Requested Referral 03/23/2024 03/23/2025 1 1 Reason Onset Date Comments Refill Request 05/22/2024 Reason Comments Non-Chemotherapy Treatment Reason Comments Acute Visit Bilat knee pain when getting up from sitting Reason Comments Tremor Specialty Diagnoses / Procedures Referred By Contac t Referred To Contact Diagnoses Dyskinesia, tardive Procedures PROVIDER ORDERED FOLLOW UP OFFICE/OUTPATIENT [facility] 60 MINUTES Bogdan Roberts MD [address] [place] [address] Referral ID Status Reason Start Date Expiration Date V isits Requested Visits Authorized [id number] Closed PCP Requested Referral 01/13/2024 04/12/2024 1 1 Reason Comments Results Knee Xray Reason Comments Interstiticial cystitis Specialty Diagnoses / Procedures Referred By Contac t Referred To Contact CT IMAGING Diagnoses Interstitial pulmonary disease (HCC) NSIP (nonspecific interstitial pneumonia) (HCC) Procedures CT CHEST WO IVCON DIAGNOSTIC COMPUTED TOMOGRAPHY THORAX W/O Karen Werner MD [address] [place] [address] Ct Imaging [place] [address] Referral ID Status Reason Start Date Expiration Date V isits Requested Visits Authorized [id number] Closed Auto-Generate d Referral 06/12/2024 05/17/2025 1 1 Reason Comments Established Patient Follow-Up CT scan re sults Reason Onset Date Comments Refill Request 06/20/2024 [...] RETROPERITONEAL REAL TIME W/IMAGE COMPLETE Maira Chen, DUST BOX TENDER.DIRECTOR OF FIELD COORDINATION [address] [place] [address] Phone: tel: fax: [facility] [place] [address] Referral ID Status Reason Start Date Expiration Date V isits Requested Visits Authorized [id number] Closed Auto-Generate d Referral 08/10/2024 09/08/2025 1 [...] [facility] Diagnoses NSIP (nonspecific interstitial pneumonitis) [facility] Procedures SPIROMETRY BASELINE ONLY SPMTRY W/VC EXPIRATORY ANYA W/WO MXML VOL VNTJ Becca Mir, DUST BOX TENDER.DIRECTOR OF FIELD COORDINATION [address] [facility] [place] [id number] Phone: tel: fax: [facility] [address] [employer] [place] [id number] Referral ID Status Reason Start Date Expiration Date V isits Requested Visits Authorized [id number] Closed Auto-Generate d Referral 06/20/2024 07/20/2025 1 1 Specialty Diagnoses / Procedures Referred By Contac t Referred To Contact [facility] Diagnoses NSIP (nonspecific interstitial pneumonitis) ([facility] Procedures LUNG VOLUMES Becca Mir, DUST BOX TENDER.DIRECTOR OF FIELD COORDINATION [address] [facility] [address] [place] [id number] Phone: tel: fax: [facility] [address] [employer] [place] [id number] Referral ID Status Reason Start Date Expiration Date V isits Requested Visits Authorized [id number] Closed Auto-Generate d Referral 10/15/2024 05/16/2025 1 1 Specialty Diagnoses / Procedures Referred By Contac t Referred To Contact [facility] Diagnoses NSIP (nonspecific interstitial pneumonitis) (HCC) Procedures LUNG DIFFUSION CAPACITY (DLCO) DIFFUSING CAPACITY Becca Mir APRN.DIRECTOR OF FIELD COORDINATION [address] [facility] [address] [place] [address] Phone: tel: fax: [facility] [address] [place] [address] Referral ID Status Reason Start Date Expiration Date V isits Requested Visits Authorized [id number] Closed Auto-Generate d Referral 06/20/2024 07/20/2025 1 1 Reason Comments Established Patient NSIP Reason Onset Date Comments Refill Request 10/17/2024 Reason Comments Follow Up Reason Comments Patient Question Refill Request Reason Comments Parkinsonism, unspecified Parkinsonism t ype Specialty Diagnoses / Procedures Referred By Kim t Referred To Contact Diagnoses Parkinsonism, unspecified Parkinsonism type (HCC) Procedures PROVIDER ORDERED FOLLOW UP OFFICE/OUTPATIENT [facility] 60 MINUTES Bogdan Roberts MD [address] [place] [address] Phone: tel: fax: Referral ID Status Reason Start Date Expiration Date V isits Requested Visits Authorized [id number] Closed PCP Requested Referral 08/03/2024 11/01/2024 1 1 Reason Comments Blood Pressure Saw Neurology on 11/16. Concerns of Orthostatic hypotension. States her BP dropped 20 points. Some intermittent dizziness with standing. Reason Comments Consult Reason Comments Recheck Reason Comments Follow Up Kidney Stones Reason Comments Blood Pressure Check 2 week follow up Reason Comments Vaginal Bleeding Transfer from [facility] ER for a REFERENCE TEST CLERK/ONC consult. Started to bleed heavily Wednesday morning going thru approx 70 maxi pads. +clots. Received 1 unit of PRBCs @ [facility] but didn't receive full second unit d/t increased temperature. Per EMS she became hypotensive for 90s/50s and was given a 500cc bolus. Pt has no other complaints, just the bleeding. Specialty Diagnoses / Procedures Referred By Kim t Referred To Contact Diagnoses Vaginal bleeding vaginal bleeding Procedures ... Jennie Chang, DO [address] [place] [address] Phone: tel: fax: [facility] Medical Surgical Unit [facility] [address] [place] [address] Phone: tel: Referral ID Status Reason Start Date Expiration Date Visits Re quested Visits Authorized [id number] 1 1 Reason Comments Hospital F/U [facility]. [facility]. 01/22-01/26. Severe vaginal bleeding. INFORMATION SOURCE (unrecogn ized section and content) DATE CREATED AUTHOR 02/01/2023 [facility] DATE CREATED AUTHOR AUTHOR'S ORGANIZ ATION 08/07/2024 [facility] DATE CREATED AUTHOR AUTHOR'S ORGANIZ ATION 02/03/2025 [facility] DATE CREATED AUTHOR AUTHOR'S ORGANIZ ATION 02/04/2025 [facility] DATE CREATED AUTHOR AUTHOR'S ORGANIZ ATION 02/09/2025 [facility] Scheduled Active and Recently Administ ered Medications (unrecognized section and content) Medication Order 03/07/2024 03/08/2024 03/09/2024 amitriptyline (Elavil) tablet 50 mg 50 mg, Oral, Nightly, First dose on 03/04/24 at 2100 0903 (JUL Hold - Provider: Automatic Transfer Provider - Reason: Patient not available)1116 (JUL Unhold - Provider: Automatic Transfer Provider)2122 (Given - Provider: Teri Alejo RN) 2055 (Given - Provider: Neelima Peng, JUAN) aspirin EC tablet 81 mg 81 mg, [...] daily, First dose on 03/04/24 at 2100 0903 (JUL Hold - Provider: Automatic Transfer Provider - Reason: Patient not available)1116 (MAR Unhold - Provider: Automatic Transfer Provider)1152 (Given - Provider: Almita Burroughs RN)1459 (Not Given - Provider: Trina Crawley RN - Reason: Other)3 (Given - Provider: Teri Alejo RN) 0832 (Given - Provider: Karen Garcia, RN)2055 (Given - Provider: Neelima Peng RN) 0832 (Given - Provider: Karen Garcia, JUAN) cefTRIAXone (Rocephin) 1,000 mg in sodium chloride [...] (MAR Unhold - Provider: Automatic Transfer Provider) 0537 [...] Infection 0544 (New Bag - Provider: Neelima Peng RN)0614 (Stopped - Provider: Neleima Peng RN) fluconazole (Diflucan) tablet 200 mg 200 mg, Oral, Daily, First dose on 03/07/24 at 1530, For 14 days, Coverage: Brad albicans, Infection Site: Oropharyngeal 1640 (Given - Provider: Trina Crawley, JUAN) 0832 (Given - Provider: Karen Garcia, JUAN) 0832 (Given - Provider: Karen Garcia, JUAN) fludrocortisone (Florinef) tablet 0.1 mg 0.1 mg, Oral, 2 times daily, First dose on 10/19/24 at 2130 0903 (JUL Hold - Provider: Automatic Transfer Provider - Reason: Patient not available)1116 (JUL Unhold - Provider: Automatic Transfer Provider)1152 (Given - Provider: Almita Burroughs RN)2122 (Given - Provider: Teri Alejo RN) 0831 (Given - Provider: Karen Garcia, JUAN)2057 (Given - Provider: Neelima ePng, RN) 0832 (Given - Provider: Karen Garcia, RN) heparin injection 5,000 Units 5,000 Units, SubCUTAneous, Every 8 hours scheduled (3 times per day), First dose on 03/04/24 at 2200 0641 (Given - Provider: Teri Alejo RN)0903 (JUL Hold - Provider: Automatic Transfer Provider - Reason: Patient not available)111 (JUL Unhold - Provider: Automatic Transfer Provider)1353 (Given - Provider: Almita Burroughs RN)2122 (Given - Provider: Teri Alejo RN) 0537 (Given - Provider: Teri Alejo RN)1357 (Given - Provider: Karen Garcia, JUAN)2055 (Given - Provider: Neelima Peng, JUAN) 0543 (Given - Provider: Neelima Peng, JUAN)1427 (Given - Provider: Karen Garcia, JUAN) levothyroxine [...] Transfer Provider - Reason: Patient not available)111 (JUL Unhold - Provider: Automatic Transfer Provider) 0537 (Given - Provider: Teri Alejo RN) 0543 (Given - Provider: Neelima Peng RN) melatonin tablet 3 mg 3 mg, Oral, Nightly, First dose on 03/04/24 at 2100 0903 ([facility] Hold - Provider: Automatic Transfer Provider - Reason: Patient not available)1116 ([facility] Unhold - Provider: Automatic Transfer Provider)2100 (Not Given - Provider: Teri Alejo RN - Reason: Patient/family refused) 2056 (Not Given - Provider: Neelima Peng, JUAN - Reason: Patient/family refused) mycophenolate (Cellcept) capsule [...] gave PO dose) 0532 (Given - Provider: Teri Alejo RN)1743 (Given - Provider: Karen Garcia RN) 0543 (Given - Provider: Neelima Peng, RN)1800 (Canceled Entry - Provider: Automatic Discharge Provider - Comment: Automatically canceled at discontinue of medication order) pantoprazole (ProtoNix) EC tablet 40 mg (CANCELED) 40 mg, Oral, 2 times daily before meals, First dose on 03/05/24 at 0700, Do not crush, chew, or split. 0638 (Given - Provider: Teri Alejo RN)0903 (MAR Hold - Provider: Automatic Transfer Provider - Reason: Patient not available)1116 (MAR Unhold - Provider: Automatic Transfer Provider)1458 (Given - Provider: Trina Crawley, RN) predniSONE (Deltasone) tablet 5 mg 5 mg, Oral, Daily, First dose on 03/04/24 at 1615 0903 (JUL Hold - Provider: Automatic Transfer Provider - Reason: Patient not available)1116 (JUL Unhold - Provider: Automatic Transfer Provider)1152 (Given - Provider: Almita Burroughs RN) 0831 (Given - Provider: Karen Garcia RN) 0832 (Given - Provider: Karen Garcia [...] Automatic Transfer Provider)1459 (Given - Provider: Trina Crawley, JUAN) 0245 (Given - Provider: Teri Alejo RN)1445 [...] (CANCELED) 100 mL/hr, IntraVENous, Continuous, Starting on Wed03/07/24 at 1530, For 20 hours 1640 (New [...] mg from all sources in 24 hours. 902 ([facility] Hold - Provider: Automatic Transfer Provider - Reason: Patient not available)111 ([facility] Unhold - Provider: Automatic Transfer Provider) acetaminophen (Tylenol) tablet 650 mg(Linked Group 1) 650 mg, Oral, Every 6 hours PRN, mild pain (1-3), fever, For temp greater than 100.4 F (38 C), Starting on 03/04/24 at 1428, Maximum dose of acetaminophen is 4000 mg from all sources in 24 hours. 902 ([facility] Hold - Provider: Automatic Transfer Provider - Reason: Patient not available)111 ([facility] Unhold - Provider: Automatic Transfer Provider) naloxone (Narcan) injection 0.4 mg 0.4 mg, IntraVENous, Every 5 min PRN, opioid reversal, respiratory depression, Starting on 03/05/24 at 1659, +++ For RR <10, pinpoint pupils, over sedation for opioid reversal - MUST notify senior reservations agent provider immediately after first dose, may give IM or SQ if no IV access +++ 902 ([facility] Hold - Provider: Automatic Transfer Provider - Reason: Patient not available)1116 ([facility] Unhold - Provider: Automatic Transfer Provider) polyethylene glycol (PEG) 3350 (Miralax) packet 17 g 17 g, Oral, Daily PRN, constipation, Starting on 03/04/24 at 1428, 1st line for treatment of constipation - give scheduled if no bowel movement in past 24 hours. 09 ([facility] Hold - Provider: Automatic Transfer Provider - Reason: Patient not available)1116 ([facility] Unhold - Provider: Automatic Transfer Provider) promethazine (Phenergan) injection 6.25 mg 6.25 mg, IntraMUSCular, Every 6 hours PRN, nausea, vomiting, Starting on 03/07/24 at 1528, Only to be given as [...] or less into rate field of order. 0903 ([facility] Hold - Provider: Automatic Transfer Provider - Reason: Patient not available)1116 ([facility] Unhold - Provider: Automatic Transfer Provider) sodium [...] Midline or Central Line = 20 mL/lumen 0903 ([facility] Hold - Provider: Automatic Transfer Provider - Reason: Patient not available)1116 ([facility] Unhold - Provider: Automatic Transfer Provider) sucralfate [...] be given only 30 minutes apart). 0903 (JUL Hold - Provider: Automatic Transfer Provider - Reason: Patient not available)1116 (JUL Unhold - Provider: Automatic Transfer Provider) Linked [...] Anesthesia - Provider: Casi Burroughs APRN - HAT BLOCKING MACHINE OPERATOR)1619 (Stopped - Provider: HAILE Ruiz CRNA) [...] labetalol and hydralazine ineffective, notify anesthesia provider. Scheduled Medication Order 01/24/2025 01/25/2025 01/26/2025 amitriptyline (Elavil) tablet 100 mg 100 mg, Oral, Nightly, First dose on Varsha 01/25/25 at 2100 2118 (Given - Provider: Emely Garza RN) amoxicillin-clavulana te (Augmentin) 875-125 MG per tablet 1 tablet 1 tablet (875 mg), Oral, 2 times daily, First dose on Wed01/26/25 at 0930, Suspected Indication (Select all that apply): Urinary Tract Infection 0930 (Canceled Entry - Provider: Automatic Discharge Provider - Comment: Automatically canceled at discontinue of medication order) carbidopa-levodopa CR (Sinemet CR) 25-100 MG ER tablet 1 tablet (CANCELED) 1 tablet, Oral, 3 times daily, First dose on 01/22/25 at 1230, Do not crush, chew, or split. 0915 (Not Given - Provider: Sharri Ribeiro RN - Reason: NPO)1309 (MAR Hold - Provider: Automatic Transfer Provider - Reason: Patient not available)1400 (Dose Auto Held - Provider: Automatic Transfer Provider)1656 (MAR Unhold - Provider: Automatic Transfer Provider)2151 (Given - Provider: Bailey Siu RN) 1006 (Not Given - Provider: Andrew Bal RN - Reason: See Provider Order) carbidopa-levodopa CR (Sinemet CR) 25-100 MG ER tablet 1 tablet 1 tablet, Oral, 3 times daily, First dose (after last modification) on Varsha 01/25/25 at 1000, Do not crush, chew, or split. 1007 (Given - Provider: Andrew Bal RN)1445 (Given - Provider: Andrew Bal RN)1830 (Given - Provider: Sharri Ribeiro RN) 0829 (Given - Provider: Karo Ruffin, RN)1400 (Canceled Entry - Provider: Automatic Discharge Provider - Comment: Automatically canceled at discontinue of medication order) cefTRIAXone (Rocephin) 1,000 mg in sodium chloride 0.9 % 50 mL IVPB Mini-Bag Plus (CANCELED) 1,000 mg, IntraVENous, at 100 mL/hr, Administer over 30 Minutes, Every 24 hours, First dose on Wed01/25/25 at 1400, Mini-Bag Plus bag, Suspected Indication (Select all that apply): Urinary Tract Infection 183 (New Bag - Provider: Sharri Ribeiro RN)193 (Stopped - Provider: Emely Garza, JUAN) docusate sodium (Colace) capsule 100 mg 100 mg, Oral, 2 times daily, First dose on Wed01/22/25 at 2315, Do not crush or break. 0915 (Not Given - Provider: Sharri Ribeiro RN - Reason: NPO)1309 (JUL Hold - Provider: Automatic Transfer Provider - Reason: Patient not available)1656 (MAR Unhold - Provider: Automatic Transfer Provider)2152 (Not Given - Provider: Bailey Siu RN - Reason: Patient/family refused) 1007 (Given - Provider: Andrew Bal RN)2118 (Given - Provider: Emely Garza, JUAN) 0828 (Given - Provider: Karo Ruffin, JUAN) fludrocortisone (Florinef) tablet 0.1 mg 0.1 mg, Oral, Daily With Dinner, First dose on Wed01/24/25 at 1700, On hold since Wed01/24/2025 at 0831 until manually unheld 0831 (Held by provider - Provider: Spike Strange DO - Reason: Other)1700 (Dose Auto Held - Provider: Spike Strange DO) 1700 (Dose Auto Held - Provider: Spike Strange DO) 1424 (Unheld by provider - Provider: Automatic Discharge Provider) fludrocortisone (Florinef) tablet 0.2 mg 0.2 mg, Oral, Daily, First dose on Wed01/25/25 at 0900, On hold since Wed01/24/2025 at 0831 until manually unheld 0831 (Held by provider - Provider: Spike Strange DO - Reason: Other) 0900 (Dose Auto Held - Provider: Spike Strange DO) 0900 (Dose Auto Held - Provider: Spike Strange DO)1424 (Unheld by provider - Provider: Automatic Discharge Provider) levothyroxine (Synthroid, Levoxyl) tablet 75 mcg 75 mcg, Oral, Daily before breakfast, First dose on Wed01/23/25 at 0600, Tube feeding (TF) interaction, obtain physician order to manage, recommend holding TF for 30 minutes before and after dose. 0515 (Given - Provider: Jesse Sewell RN)1309 (JUL Hold - Provider: Automatic Transfer Provider - Reason: Patient not available)1656 (JUL Unhold - Provider: Automatic Transfer Provider) 0505 (Given - Provider: Gayatri Rosales, JUAN) 0500 (Given - Provider: Emely Garza RN) piperacillin-tazobact am (Zosyn) 4,500 mg in sodium chloride 0.9 % 100 mL IVPB Mini-Bag Plus (CANCELED) 4,500 mg, IntraVENous, at 33.3 mL/hr, Administer over 3 Hours, Every 6 hours, First dose on Wed01/23/25 at 1200, Dosage or interval has been adjusted per [facility] Renal Dosing policy. Mini-Bag Plus bag, Suspected Indication (Select all that apply): Urinary Tract Infection 0243 (Stopped - Provider: Jesse Sewell RN)0515 (New Bag - Provider: Jesse Sewell RN)0914 (Stopped - Provider: Sharri Ribeiro RN)1220 (New Bag - Provider: Sharri Ribeiro RN)1309 (JUL Hold - Provider: Automatic Transfer Provider - Reason: Patient not available)1656 (JUL Unhold - Provider: Automatic Transfer Provider)1846 (New Bag - Provider: Sharri Ribeiro RN)1939 (Stopped - Provider: Sharri Ribeiro RN)2152 (Stopped - Provider: Bailey Siu RN) 0319 (New Bag - Provider: Gayatri Rosales, JUAN)0614 (Stopped - Provider: Gayatri Rosales RN)1006 (New Bag - Provider: Andrew Bal RN)1430 (Stopped - Provider: Andrew Bal RN) Continuous Medication Order 01/24/2025 01/25/2025 01/26/2025 lactated Ringer's infusion (CANCELED) 50 mL/hr, IntraVENous, Continuous, Starting on Wed01/23/25 at 0045 1445 (Continued by Anesthesia - Provider: HAILE Mcnulty CRNA)1529 (New Bag - Provider: HAILE Mcnulty CRNA)1545 (Stopped - Provider: HAILE Mcnulty CRNA) PRN Medication Order 01/24/2025 01/25/2025 01/26/2025 acetaminophen (Tylenol) tablet 1,000 mg 1,000 mg, Oral, Every 8 hours PRN, mild pain (1-3), fever, Starting on Wed01/23/25 at 0022, Maximum dose of acetaminophen is 4000 mg from all sources in 24 hours. 1309 (JUL Hold - Provider: Automatic Transfer Provider - Reason: Patient not available)1656 (JUL Unhold - Provider: Automatic Transfer Provider) ondansetron (Zofran) injection 4 mg(Linked Group 1) 4 mg, IntraVENous, Every 6 hours PRN, nausea, vomiting, Starting on Wed01/22/25 at 0855, 1st Line. Give IV if patient is unable to take orally. If inadequate response within 60 minutes, proceed to next-line agent or contact provider if no further options ordered. 1309 (JUL Hold - Provider: Automatic Transfer Provider - Reason: Patient not available)1656 (JUL Unhold - Provider: Automatic Transfer Provider) ondansetron ODT (Zofran-ODT) disintegrating tablet 4 mg(Linked Group 1) 4 mg, Oral, Every 8 hours PRN, nausea, vomiting, Starting on Wed01/22/25 at 0855, 1st Line. If inadequate response within 60 minutes, proceed to next-line agent or contact provider if no further options ordered. Patient should allow tablet to dissolve on tongue. Do not remove from blister pack until just before administering. 1309 (JUL Hold - Provider: Automatic Transfer Provider - Reason: Patient not available)1656 (JUL Unhold - Provider: Automatic Transfer Provider) polyethylene glycol (PEG) 3350 (Miralax) packet 17 g 17 g, Oral, Daily PRN, constipation, Starting on Wed01/22/25 at 0855, 1st line for treatment of constipation - give scheduled if no bowel movement in past 24 hours. 1309 (JUL Hold - Provider: Automatic Transfer Provider - Reason: Patient not available)1656 (JUL Unhold - Provider: Automatic Transfer Provider) sodium chloride 0.9 % irrigation solution (CANCELED) As needed, Starting on Wed01/24/25 at 1520, Intraprocedure 1505 (Given - Provider: Becca Joseph MD)1520 (Given - Provider: Becca Joseph MD) sterile water irrigation solution (CANCELED) As needed, Starting on Wed01/24/25 at 1505, Intraprocedure 1505 (Given - Provider: Becca Joseph MD) Linked Groups Order Group 1: ondansetron ODT (Zofran-ODT) disintegrating tablet 4 mgJump to med 4 mg, Oral, Every 8 hours PRN, nausea, vomiting, Starting on Wed01/22/25 at 0855, 1st Line. If inadequate response within 60 minutes, proceed to next-line agent or contact provider if no further options ordered. Patient should allow tablet to dissolve on tongue. Do not remove from blister pack until just before administering. Or ondansetron (Zofran) injection 4 mgJump to med 4 mg, IntraVENous, Every 6 hours PRN, nausea, vomiting, Starting on Wed01/22/25 at 0855, 1st Line. Give IV if patient is unable to take orally. If inadequate response within 60 minutes, proceed to next-line agent or contact provider if no further options ordered. Goals (unrecognized section and content) Goals may [...] BE BASED ON THE PRIMARY CLINICAL RECORDS. [facility]. provides no warranty or guarantee of the accuracy or completeness of information in this document.
[2025-02-16] MEDS: Lactated Ringers 1,000 ML 15 ML IV (06:28)
--- NOTE | 2025-02-16 06:42 | PCM.PRE.AN2 ---
ASA Classification* ASA Classification ASA Classification: 2 Assessment & Plan Anesthesia* Anesthesia Assessment Anesthesia Assessment: Discussed sedation and/or anesthesia options, risks, benefits, and alternatives with patient/parents/legal guardian/POA. Questions invited. The patient/parents/legal guardian/POA seems to understand and agrees to proceed with anesthesia plan. Reviewed the physical assessment, medical history, allergy history and patient home medications list prior to surgery/procedure/anesthetic and documented any changes. Performed airway and anesthesia risk assessments. Anesthesia Type Anesthesia Type: MAC Anesthesia Focused Assessment* Temperature: 97.4 F Pulse Rate: 84 Blood Pressure: 103/63 Respiratory Rate: 16 Pulse Ox: 97 Airway Assessment Mouth opens: >3 cm Mallampati Score: II Labs Anesthesia Preop lab: CBC WBC, (4.4-11.0) 22.8 K/mm3 H 01/21/25, 20:00 RBC, (4.2-5.4) 3.24 M/mm3 L 01/21/25, 20:00 Hgb, (12.0-15.0) 8.5 g/dL L 01/21/25, 20:00 Hct, (37-47) 26.9 % L 01/21/25, 20:00 Plt Count, (150-450) 281 K/mm3 01/21/25, 20:00 CHEMISTRY Potassium, (3.3-5.1) 3.5 mmol/L 01/21/25, 20:00 Sodium, (133-145) 132 mmol/L L 01/21/25, 20:00 Magnesium, (1.6-2.6) 2.4 mg/dL 03/03/24, 14:20 Phosphorus, (2.5-4.9) 2.7 mg/dL 12/26/17, 05:40 BUN, (4-19) 32 mg/dL H 01/21/25, 20:00 Creatinine, (0.70-1.20) 2.06 mg/dL H 01/21/25, 20:00 Glucose, (70-99) 157 mg/dL H 01/21/25, 20:00 TSH, (0.358-3.740) 2.500 uIU/mL 03/03/24, 14:20 COAG Pre-Assessment Diagnosis/Proposed Procedure Planned Operative Procedure(s): COLONSCOPY Anesthesia History 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 When Was Last Pacemaker Check QUESTION #4 FULL TEXT: You/Your Family Experience fever (hyperthermia) with Anesthesia Last Oral Intake Last Oral intake: Last Oral Intake NPO since 00:00 02/16/25 06:20 Meds taken in AM with sips of Yes 02/16/25 06:20 water? Meds patient instructed to take am of surgery PONV PONV - pad machine offbearer: PONV - pad machine offbearer Female Yes 02/12/25 13:10 HX of Motion Sickness Yes 02/12/25 13:10 HX of N/V After Surgery No 02/12/25 13:10 Non-Smoker Yes 02/12/25 13:10 Duration of Surgery greater No 02/12/25 13:10 than 60 minutes Number of Risk Factors 3 02/12/25 13:10 PONV Score Moderate Risk 02/12/25 13:10 Height & Weight Height & Weight: Anesthesia: Height & Weight Height 5 ft 5 in 02/16/25 06:20 Weight: 71.668 kg 02/16/25 06:20 Body Mass Index (BMI) 26.2 02/16/25 06:20 Respiratory Assessment Respiratory Assessment - pad machine offbearer: Respiratory Tract Infection Hx - pad machine offbearer Hx Respiratory Tract Infection No 02/12/25 13:10 STOP Sleep Apnea STOP Sleep Apnea - pad machine offbearer: STOP Sleep Apnea - pad machine offbearer Hx Hypertension No: HYPOTENSION 02/12/25 13:10 Hx Sleep Apnea No 02/12/25 13:10 CPAP BIPAP Do you snore loudly (louder No 02/12/25 13:10 than talking or can be heard Do you often feel tired/ No 02/12/25 13:10 fatigued/ sleepy during daytime? Has anyone observed you stop No 02/12/25 13:10 breathing during sleep? STOP Results Negative 02/12/25 13:10 QUESTION #5 FULL TEXT : Do you snore loudly (louder than talking or can be heard through closed doors)? 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 Specify any problems FEVER 02/12/25 13:10 Hx of Preganancy in last 3 No 02/12/25 13:10 Months Nurse Filling Out Transfusion DSCHRIBER 02/12/25 13:10 & Questions: Date: 02/12/25 02/12/25 13:10 Time: 13:12 02/12/25 13:10 Patient unable to answer at this time (ie. confused, unrespo /Reproduction History /Reproductive History - pad machine offbearer: /Reproductive Hx- pad machine offbearer Hx Now Gestational Age (in weeks): EDC: Hx Hx Para Hx Section SAB No 02/12/25 13:10 Active Medications Active Medications: Current Medications Generic Name Dose Route Start Last Admin Trade Name Freq PRN Reason Stop Dose Admin Lactated Ringer's 1,000 mls @ 15 mls/hr 02/16/25 06:00 02/16/25 06:28 IV 15 mls/hr .Q48H SHANTA Administration PFSH Medical History Loss of hearing Walker as ambulation aid Low iron Injury of head and neck History of hiatal hernia Gastric reflux Back pain Parkinson's disease Orthostatic hypotension History of steroid therapy Wears glasses Post-menopausal Cancer Arthritis History of renal disease DVT (deep venous thrombosis) Easy bruising Syncope Dietary restriction History of diverticulitis Interstitial emphysema of lung Non-smoker History of edema Overactive bladder Intramural leiomyoma of uterus Esophageal dysmotility Abnormal Pap smear of vagina and vaginal HPV Positive P-ANCA titer Hypothyroid Home Medications ?Medication ?Instructions ?Recorded ?Last Taken ?Type aspirin 81 mg chewable tablet 81 mg PO DAILY@0800 06/28/18 02/11/25 History cholecalciferol (vitamin D3) 25 1,000 unit PO BID 06/28/18 02/15/25 History mcg (1,000 unit) tablet (Vitamin D3) mycophenolate mofetil 500 mg 500 mg PO BID 03/04/24 02/15/25 History tablet (CellCept) levothyroxine 100 mcg capsule 100 mcg PO QDAY 04/06/24 02/16/25 05:20 History ondansetron 4 mg disintegrating 4 mg PO Q8H PRN nausea and vomiting 04/06/24 Unknown History tablet Lactobacillus acidophilus 250 500 mmu cells PO DAILY 06/02/24 12/21/24 History million cell capsule (Probiotic Acidophilus) amitriptyline 50 mg tablet 100 mg PO QHS 07/07/24 02/15/25 History carbidopa 25 mg-levodopa 100 mg 1 tab PO TID 10/11/24 02/15/25 18:00 History tablet (Sinemet) carbidopa 25 mg tablet 25 mg PO TID 11/08/24 02/15/25 18:00 History multivitamin (Daily Multi-Vitamin 1 tab PO DAILY 12/19/24 02/15/25 History tablet) fludrocortisone 0.1 mg tablet 0.2 mg PO DAILY 12/29/24 02/16/25 05:20 History pantoprazole 20 mg tablet,delayed 20 mg PO QDAY #30 tabs 01/22/25 02/16/25 05:20 Rx release ferrous sulfate 325 mg (65 mg 325 mg PO DAILY 02/12/25 02/15/25 History iron) tablet (Iron (ferrous sulfate)) fludrocortisone 0.1 mg tablet 0.1 mg PO QHS 02/12/25 02/15/25 History Allergy/AdvReac Type Severity Reaction Status Date / Time cetirizine (From Zyrte) Allergy Intermediate Rash Verified 02/16/25 06:14 erythromycin base AdvReac Intermediate Diarrhea Verified 02/16/25 06:14 azithromycin AdvReac Mild Diarrhea Verified 02/16/25 06:14 Family History Mother Thyroid disorder Hypertension Father Heart disease Hypertension COPD (chronic obstructive pulmonary disease) Surgical History History of hand surgery History of lithotripsy Hx of biopsy S/P laparoscopic appendectomy Hx of colonoscopy History of esophagogastroduodenoscopy (EGD) Hx of tubal ligation Hx of bladder repair surgery H/O thymectomy History of spinal fusion History of cholecystectomy History of colon resection Social History Smoking Status: Never smoker alcohol intake: current alcohol intake frequency: holidays/special occasions only Review of Systems (Anesthesia) ROS Narrative System reviewed and no additional complaints, except as documented.
--- NOTE | 2025-02-16 06:51 | HP.PCM_ITS ---
HPI - General General Date of Admission: 02/16/25 Date of Service: 02/16/25 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: constipation HPI Narrative EREN HAWLEY, is a 64 F who presents [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: abd pain . [facility] established March 2024 after [facility] hospitalization for seizure like activity. 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 Pt on Cellcept and prednisone for interstitial lung disease. Found to have esophageal thickening on imaging. Underwent EGD showing esophageal candidiasis stated on Diflucan and nystatin. EGD 03.07.24; severe candidiasis w/ no bleeding, LA Grade D acute and erosive esophagitis with no bleeding, gastritis and normal duodenum. with recommendation for f/u in 8 weeks. OV 04.06.25 Pt feeling better on anti fungal medications but since discontinuing it she has had some symptoms. Endorses burning, globus sensation and cough. Start Fluconazole 200 mg daily for 14 days. Scheduled for EGD EGD 06.06.24;- Normal esophagus. Biopsied. - Small hiatal hernia. - Normal second portion of the duodenum. OV 07.07.24 Pt doing well today. Reviewed EGD results Swallowing improved after treatment with fluconazole. Last OV 10.11. Pt having burning in her esophagus for a few weeks now. It does not feel like when she had esophageal candidiasis. She does not take a PPI. Over the past few months pt has been having lower abdominal pain and constipation. 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 She started taking Colace 200 mg for three days which did not produce a bm right away. The pain does get better after she has a bm *Start Pantoprazole 20 mg daily, start colace 200 mg daily OV 11.08. Pt continues to have constipation while taking colace. She is having a bm about once a week. Her bm are hard and small balls. She will have to digitally disimpact on some occasions. She has lower abd pain that is relieved after a bm. She feels this is related to her bladder as well. Start Linzess 72 mcg faily Colonoscopy 12.22.24 - Stool in the entire examined colon. - No specimens collected OV 12.29.24 patient has had just 1 bowel movement since her colonoscopy. Colonoscopy was unable to be completed due to stool in the entire colon. Lavage was attempted. Patient has been taking Trulance daily which has reduced her abdominal pain but has not produced bowel movements as well as Linzess did. She denies abdominal pain, nausea vomiting, or lack of appetite. REPLACED BY [facility] Medical History Loss of hearing Walker as ambulation aid Low iron Injury of head and neck History of hiatal hernia Gastric reflux Back pain Parkinson's disease Orthostatic hypotension History of steroid therapy Wears glasses Post-menopausal Cancer Arthritis History of renal disease DVT (deep venous thrombosis) Easy bruising Syncope Dietary restriction History of diverticulitis Interstitial emphysema of lung Non-smoker History of edema Overactive bladder Intramural leiomyoma of uterus Esophageal dysmotility Abnormal Pap smear of vagina and vaginal HPV Positive P-ANCA titer Hypothyroid Home Medications ?Medication ?Instructions ?Recorded ?Last Taken ?Type aspirin 81 mg chewable tablet 81 mg PO DAILY@0800 06/1702/11/25 History cholecalciferol (vitamin D3) 25 1,000 unit PO BID 06/1702/15/25 History mcg (1,000 unit) tablet (Vitamin D3) mycophenolate mofetil 500 mg 500 mg PO BID 03/04/24 History tablet (CellCept) levothyroxine 100 mcg capsule 100 mcg PO QDAY 04/06/24 02/16/25 05:20 History ondansetron 4 mg disintegrating 4 mg PO Q8H PRN nausea and vomiting 04/06/24 Unknown History tablet Lactobacillus acidophilus 250 500 mmu cells PO DAILY 0 06/02/24 12/21/24 History million cell capsule (Probiotic Acidophilus) amitriptyline 50 mg tablet 100 mg PO QHS 07/07/2407/11 History carbidopa 25 mg-levodopa 100 mg 1 tab PO TID 10/11/24 02/15/25 18:00 History tablet (Sinemet) carbidopa 25 mg tablet 25 mg PO TID 11/08/24 18:00 History multivitamin (Daily Multi-Vitamin 1 tab PO DAILY 12/1902/15/25 History tablet) fludrocortisone 0.1 mg tablet 0.2 mg PO DAILY 12/29/24 02/16/25 05:20 History pantoprazole 20 mg tablet,delayed 20 mg PO QDAY #30 ta bs 01/22/25 02/16/25 05:20 Rx release ferrous sulfate 325 mg (65 mg 325 mg PO DAILY 02/12/25 02/15/25 History iron) tablet (Iron (ferrous sulfate)) fludrocortisone 0.1 mg tablet 0.1 mg PO QHS 02/12/25 1 History Allergy/AdvReac Type Severity Reaction Status Date / Time [facility] Allergy Intermediate Rash Verified 02/16/25 06:14 erythromycin base AdvReac Intermediate Diarrhea Verified 02/16/25 06:14 azithromycin AdvReac Mild Diarrhea Verified 02/16/25 06:14 Family History Mother Thyroid disorder Hypertension Father Heart disease Hypertension COPD (chronic obstructive pulmonary disease) Surgical History History of hand surgery History of lithotripsy Hx of biopsy S/P laparoscopic appendectomy Hx of colonoscopy History of esophagogastroduodenoscopy (EGD) Hx of tubal ligation Hx of bladder repair surgery H/O thymectomy History of spinal fusion History of cholecystectomy History of colon resection Social History Smoking Status: Never smoker alcohol intake: current alcohol intake frequency: holidays/special occasions only ROS Constitutional Constitutional: Denies fatigue, fever(s), poor appetite, weight gain or weight loss Gastrointestinal Gastrointestinal: Denies belching, bloating, change in bowel habits, change in stool character, chewing difficulty, coffee ground emesis, constipation, cramping, diarrhea, dyspepsia, dysphagia, early satiety, excessive flatus, fecal incontinence, heartburn, hematemesis, hematochezia, hemorrhoids, loose stools, melena, nausea, odynophagia, rectal bleeding, tenesmus, vomiting or weight changes Vital Signs Vital Signs Vital Signs: 02/16/25 06:18 02/16/25 06:20 02/16/25 06:43 Temperature 97.4 F L 97.4 F L Temperature Source Temporal Pulse Rate 84 84 Respiratory Rate 16 16 Respiratory Pattern Normal Blood Pressure 103/63 103/63 Blood Pressure Mean 76 Blood Pressure Source Monitor Blood Pressure Position Semi-Fowlers Blood Pressure Location Right Arm Pulse Ox 97 97 Oxygen Delivery Method Room Air Weight Weight: 158 lb Body Mass Index (BMI) 26.2 Physical Exam Const alert, oriented x3, no apparent distress and healthy appearing General Appearance: cooperative GI normal to inspection, nondistended, normoactive bowel sounds, soft to palpation, non-tender and non-distended Percussion: normal to percussion Rectal Exam: deferred Assessment & Plan Assessment/Plan (1) Irritable bowel syndrome with constipation: (2) Constipation: (3) Abdominal pain: PLAN: Assessment and Plan Assessment and Plan (1) Irritable bowel syndrome with constipation: Status: Acute Plan: Patient is a 64-year-old female patient here today for follow-up after colonoscopy. Colonoscopy was unable to be completed due to incomplete prep. She had stool in the entire examined colon and lavage was attempted however this was not sufficient. She notes her stool was still brown prior to her colonoscopy. She has had 1 bowel movement since her colonoscopy. Patient continues with Trulance which helps with abdominal pain but she feels Linzess was better for the constipation. She has been taking the Trulance for over a month now. I advise she continue Trulance and do a fleets enema. Will consider switching back to Linzess or other a laxative to get her going. I have also ordered a KUB to assess for constipation. During her visit today, she sits comfortably and does not tender to palpation of her abdomen. She denies obstructive symptoms including nausea, vomiting, abdominal pain or lack of appetite. Patient was scheduled for repeat colonoscopy with GoLytely prep. - KUB - Continue Trulance - Fleets enema - Consider other treatment for constipation - Repeat colonoscopy with GoLytely prep (2) Constipation: Status: Acute Orders: Orders Abdomen Single View Today K58.1 - Irritable bowel syndrome with constipation, K59.00 - Constipation, unspecified Medications: New peg 3350-electrolytes 236-22.74-6.74 -5.86 gram (Golytely) until fecal effluent is clear 240 mL PO Q10M 4,000 mL 0RF ]
--- NOTE | 2025-02-16 08:11 | PCM.POST.ANE ---
Anesthesia: Postop Eval I Current Vital Signs Temperature: 97.3 F Pulse Rate: 78 Blood Pressure: 127/78 Respiratory Rate: 16 Pulse Ox: 100 Oxygen Delivery Method: Room Air Assessment Airway patent: Yes Spontaneous unlabored respirations: Yes Mental status: Awake nausea: No Vomiting: No Anesthesia Complication: No Fluid Hydration Crystalloid volume administer (ml): 400 Total IV fluid infused: 400 Progress Note Anesthesia document: Postop Eval 1 completed: Yes
--- NOTE | 2025-02-16 08:13 | OP.COLON_ITS ---
Patient Name: Asia Merchant Procedure Date: 02/16/2025 7:44 AM Date of : 1960 Age: 64 Procedure: Colonoscopy Indications: Generalized abdominal pain Providers: Aditya Cota DO Referring MD: Gonzalo Dasilva Medicines: Monitored Anesthesia Care Patient Profile: This is a 64 year old female. Refer to note in patient chart for documentation of history and physical. Last Colonoscopy: within the past 3 months. Complications: No immediate complications. Procedure: Pre-Anesthesia Assessment: - Prior to the procedure, a History and Physical was performed, and patient medications and allergies were reviewed. The patient is competent. The risks and benefits of the procedure and the sedation options and risks were discussed with the patient. All questions were answered and informed consent was obtained. Patient identification and proposed procedure were verified by the physician in the pre-procedure area. Mental Status Examination: alert and oriented. Airway Examination: normal oropharyngeal airway and neck mobility. Respiratory Examination: clear to auscultation. CV Examination: normal. Prophylactic Antibiotics: The patient does not require prophylactic antibiotics. Prior Anticoagulants: The patient has taken no anticoagulant or antiplatelet agents except for NSAID medication. ASA Grade Assessment: II - A patient with mild systemic disease. After reviewing the risks and benefits, the patient was deemed in satisfactory condition to undergo the procedure. The anesthesia plan was to use monitored anesthesia care (MAC). Immediately prior to administration of medications, the patient was re-assessed for adequacy to receive sedatives. The heart rate, respiratory rate, oxygen saturations, blood pressure, adequacy of pulmonary ventilation, and response to care were monitored throughout the procedure. The physical status of the patient was re-assessed after the procedure. After I obtained informed consent, the scope was passed under direct vision. Throughout the procedure, the patient's blood pressure, pulse, and oxygen saturations were monitored continuously. The Colonoscope was introduced through the anus and advanced to the cecum, identified by appendiceal orifice and ileocecal valve. The colonoscopy was performed without difficulty. The patient tolerated the procedure well. The quality of the bowel preparation was poor. The ileocecal valve, appendiceal orifice, and rectum were photographed. Scope In: 7:53:10 AM Scope Withdrawal Time 0 hours 3 minutes 9 seconds Scope Out: 8:01:42 AM Total Procedure Duration Time 0 hours 8 minutes 32 seconds Findings: The perianal and digital rectal examinations were normal. A large amount of extensive amounts of copious quantities of liquid semi-liquid semi-solid solid stool was found in the entire colon, precluding visualization. Lavage of the area was performed using greater than 500 mL of sterile water, resulting in incomplete clearance with continued poor visualization. Impression: - Preparation of the colon was poor. - Stool in the entire examined colon. - No specimens collected. Recommendation: - Discharge patient to home. - Resume previous diet. - Continue present medications. - Repeat colonoscopy because the bowel preparation was poor. Strategy for a future colonoscopy A third attempt will require a more intensive preparation protocol and careful management tailored to the patient's needs. Inpatient vs. outpatient preparation Consider an inpatient (hospital) preparation, which can be safer for elderly patients with mobility issues or other comorbidities like Parkinson's disease. This allows for direct nursing supervision to manage fluid intake and toilet transfers. Intensive, extended dietary restrictions Low-fiber diet: The patient should follow a low-fiber or low-residue diet for 3 to 5 days before the procedure, longer than the typical 1 to 2 days. This reduces the amount of fiber and undigested food in the colon. Clear liquid diet: The clear liquid diet should be strictly followed the entire day before the procedure. Hydration: Aggressive hydration with clear liquids is essential throughout the preparation to combat potential dehydration and help flush the colon. Intensive, split-dose regimen A split-dose preparation regimen is a standard for patients with a history of poor prep. Regimen: A commonly used regimen includes an oral laxative, such as bisacodyl, followed by a polyethylene glycol (PEG) solution split between the evening before and the morning of the procedure. PEG 2+2: A proven regimen for previously failed prep involves 15 mg of bisacodyl, followed by 2 liters of PEG solution the evening before, and another 2 liters on the morning of the procedure. Timing: The second dose must be completed within 5 hours of the procedure start time to maximize its cleansing effect. Azithromycin 500 mg p.o. x 5 days during the week of the procedure to help GI motility, simethicone 5 mL p.o. twice daily during the week of the procedure to remove gas Procedure Code(s): --- Professional --- 37988, Colonoscopy, flexible; diagnostic, including collection of specimen(s) by brushing or washing, when performed (separate procedure) CPT copyright 2021 [employer]. All rights reserved. The codes documented in this report are preliminary and upon scale expert review may be revised to meet current compliance requirements. Aditya Cota DO 02/16/2025 8:13:17 AM This report has been signed electronically. Number of Addenda: 0 Note Initiated On: 02/16/2025 7:44 AM
--- NOTE | 2025-02-16 10:33 | PCM.POSTANE2 ---
Anesthesia Postop Eval I Sum Postop Eval Completion status Anesthesia document: Postop Eval 1 completed: Yes Anesthesia Postop Eval I Summary Anesthesia Postop Eval I Summary: Anesthesia Postop Eval I: Assessment Summary Airway patent Yes 02/16/25 08:12 [email or web address] Spontaneous unlabored Yes 02/16/25 08:12 [email or web address] respirations Mental status Awake 02/16/25 08:12 [email or web address] nausea No 02/16/25 08:12 [email or web address] Vomiting No 02/16/25 08:12 [email or web address] Anesthesia Postop Eval I: Fluid Summary Crystalloid volume administer 400 02/16/25 08:12 [email or web address] (ml) Colloids volume administered ( ml) Blood Product volume administered (ml) Total IV fluid infused 400 02/16/25 08:12 [email or web address] Anesthesia Postop Eval I: Summary Notes Anesthesia Complication No 02/16/25 08:12 [email or web address] Anesthesia Complication Comment: Post-operative progress note Anesthesia: Postop Eval II Evaluation Mental status: Awake Pain Level: 0 nausea: No Vomiting: No
== END 2025-02-16 08:39 | disposition home or self-care (01) ==
LOC: EN 05:54 → AC 05:55
PROVIDERS: PCP Family Medicine; Referring Provider Family Medicine; Visit Provider Internal Medicine Gastroenterology
PROC: 0DJD8ZZ Inspection of Lower Intestinal Tract, Via Natural or Artificial Opening Endoscopic (ICD-10-PCS; CPT 45378; principal; 2025-02-16 06:55)
DX: K58.1 Irritable bowel syndrome with constipation (principal); E03.9 Hypothyroidism, unspecified; Z79.890 Hormone replacement therapy; K21.9 Gastro-esophageal reflux disease without esophagitis; Z79.899 Other long term (current) drug therapy; Z90.49 Acquired absence of other specified parts of digestive tract; Z98.51 Tubal ligation status; R10.84 Generalized abdominal pain
CPT/HCPCS: 45378; J2405

== ENCOUNTER → 2025-04-23 | Outpatient (CLI) | payer MEDICARE, SELFPAY ==
--- NOTE | 2025-04-23 12:49 | US_ITS ---
PROCEDURE: KIDNEY AND BLADDER 04/23/2025 REASON FOR EXAM: MANJIT TECHNIQUE: Procedure Code: USKI Modality: US Procedure: KIDNEY AND BLADDER COMPARISON: CT of the abdomen and pelvis dated January 21 2025 FINDINGS: RIGHT KIDNEY Size: 11.4 x 7 x 6.2 cm Echogenicity: Normal. Parenchymal thickness: Normal measuring 1.2 cm. Hydronephrosis: Yhiyvggo-zl-wviyat. Calculi: 6 mm stone in the lower pole of the right kidney. Cysts: 2.1 x 1.8 x 1.9 cm in the right kidney. Solid masses: None. LEFT KIDNEY Size: 11.7 x 6.3 x 5.7 cm Echogenicity: Normal. Parenchymal thickness: Normal measuring 2 cm Hydronephrosis: Fwlhjlnd-ot-muungl. Calculi: None. Cysts: None. Solid masses: None. BLADDER: Debris in the bladder. This appears decreased since the previous examination and likely reflects residual blood products or sediment. There is diffuse thickening of the bladder wall measuring 7 mm similar to previous CT. Bladder diverticula present. OTHER: None. US/Kidney and Bladder IMPRESSION: Bilateral pyknnamg-[id number] hydronephrosis. Diffuse thickening of the bladder wall with bladder diverticula. Filling defect in dependent portion of the the urinary bladder likely reflectiv e of blood clot or debris. This appears decreased when compared to the previous CT of 01/21/2025. Nonobstructing stone in the lower pole of the right kidney. Reading Location: [id number]
== END | disposition home or self-care (01) ==
PROVIDERS: PCP Family Medicine
DX: N17.9 Acute kidney failure, unspecified (principal)
CPT/HCPCS: 76770

== ENCOUNTER 2025-05-01 12:19 | Outpatient (CLI) | payer MEDICARE, MEDICAID, SELFPAY ==
[2025-05-01 12:52] VITALS: BP 107/71; PULSE 94; RESP 16; TEMP 36.7; O2SAT 100; BMI 27.6
[2025-05-01] MEDS: Iron Sucrose Complex (Venofer) 200 MG in 0.9% NaCl 100 ML 220 MG IV (13:17)
[2025-05-01 14:24] VITALS: BP 100/66; PULSE 93; RESP 16; O2SAT 99
== END 2025-05-01 23:59 | disposition home or self-care (01) ==
LOC: MEDOUTP 12:21
PROVIDERS: PCP Family Medicine
DX: N18.32 Chronic kidney disease, stage 3b (principal); D63.1 Anemia in chronic kidney disease
CPT/HCPCS: 96365; J1756; A4216

== ENCOUNTER 2025-05-01 14:41 | Emergency (ER) | payer MEDICARE, MEDICAID, SELFPAY ==
[2025-05-01 14:41] VITALS: BP 117/89; PULSE 89; RESP 16; TEMP 36.6; O2SAT 99
[2025-05-01 15:26] VITALS: BMI 26.1
--- NOTE | 2025-05-01 15:32 | ED.VIS.FEGU ---
HPI HPI - Female History of Present Illness 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: Complaint Narrative Narrative: Patient is a 65-year-old female presenting to the emergency department for a catheter. Patient follows with audiology assistant, Dr. Fuentes. Reportedly she saw her audiology assistant on 04/25 and had an ultrasound of her kidneys on 04/23. She was called today by the office to come to the emergency department for a catheter given fluid buildup in my kidneys. Patient has a past medical history of CKD stage 3, IBS, diverticulitis, GERD, hyponatremia, kidney stones. She states the only symptom she is having is some intermittent dysuria. She denies any hematuria. Denies any abdominal pain or flank pain. Denies any fever or chills. She states that she currently has a kidney stone in her ureter that is just being monitored because she does not have symptoms secondary to this. She denies any current stent placement. She states she has urinated 6 times today. [facility] Medical History Loss of hearing Walker as ambulation aid Low iron Injury of head and neck History of hiatal hernia Gastric reflux Back pain Parkinson's disease Orthostatic hypotension History of steroid therapy Wears glasses Post-menopausal Cancer Arthritis History of renal disease DVT (deep venous thrombosis) Easy bruising Syncope Dietary restriction History of diverticulitis Interstitial emphysema of lung Non-smoker History of edema Overactive bladder Intramural leiomyoma of uterus Esophageal dysmotility Abnormal Pap smear of vagina and vaginal HPV Positive P-ANCA titer Hypothyroid Home Medications ?Medication ?Instructions ?Recorded ?Last Taken ?Type cholecalciferol (vitamin D3) 25 1,000 unit PO BID 06/28/18 05/01/25 History mcg (1,000 unit) tablet (Vitamin D3) mycophenolate mofetil 500 mg 500 mg PO BID 03/04/24 05/01/25 History tablet (CellCept) levothyroxine 100 mcg capsule 100 mcg PO QDAY 04/06/24 05/01/25 History Lactobacillus acidophilus 250 500 mmu cells PO DAILY 06/02/24 05/01/25 History million cell capsule (Probiotic Acidophilus) carbidopa 25 mg-levodopa 100 mg 1 tab PO TID 10/11/24 05/01/25 History tablet (Sinemet) carbidopa 25 mg tablet 25 mg PO TID 11/08/24 05/01/25 History multivitamin (Daily Multi-Vitamin 1 tab PO DAILY 12/19/24 05/01/25 History tablet) fludrocortisone 0.1 mg tablet 0.2 mg PO DAILY 12/29/24 05/01/25 History ferrous sulfate 325 mg (65 mg 325 mg PO DAILY 02/12/25 04/30/25 History iron) tablet (Iron (ferrous sulfate)) fludrocortisone 0.1 mg tablet 0.1 mg PO QHS 02/12/25 04/30/25 History pantoprazole 20 mg tablet,delayed 20 mg PO QDAY #30 tabs 03/21/25 05/01/25 Rx release lubiprostone 24 mcg capsule 24 mcg PO BID #60 caps 03/22/25 05/01/25 Rx cranberry extract 200 mg capsule 200 mg PO QDAY 04/06/25 04/30/25 History acetaminophen 500 mg capsule 1,000 mg PO Q6H PRN pain 05/01/25 04/27/25 History amitriptyline 100 mg tablet 100 mg PO QHS 05/01/25 04/30/25 History cephalexin 500 mg capsule 500 mg PO Q6 #40 CAPSULES 05/01/25 Unknown Rx potassium citrate 10 mEq (1,080 10 meq PO DAILY 05/01/25 05/01/25 History mg) tablet,extended release Allergy/AdvReac Type Severity Reaction Status Date / Time cetirizine (From [facility]) Allergy Intermediate Rash Verified 05/01/25 14:41 erythromycin base AdvReac Intermediate Diarrhea Verified 05/01/25 14:41 azithromycin AdvReac Mild Diarrhea Verified 05/01/25 14:41 Family History Mother Thyroid disorder Hypertension Father Heart disease Hypertension COPD (chronic obstructive pulmonary disease) Surgical History History of hand surgery History of lithotripsy Hx of biopsy S/P laparoscopic appendectomy Hx of colonoscopy History of esophagogastroduodenoscopy (EGD) Hx of tubal ligation Hx of bladder repair surgery H/O thymectomy History of spinal fusion History of cholecystectomy History of colon resection Social History Smoking Status: Never smoker alcohol intake: current alcohol intake frequency: holidays/special occasions only ROS ROS ED ROS Narrative see HPI EXAM Physical Exam Narrative Exam Narrative: Vital signs: Reviewed General: Alert and oriented x 3. No acute distress. Well-appearing, nontoxic HEENT: Head is normocephalic and atraumatic, sinuses nontender, pupils equal round and reactive. Nares are patent. Oropharynx and throat exams normal. Neck: Supple without lymphadenopathy nontender Cardiovascular: Regular rate and rhythm, no murmurs. No rubs or gallops. Normal S1 and S2 Respiratory: Clear to auscultation bilaterally. No wheezes, rales, rhonchi Abdominal: Soft and nontender. Normal bowel sounds. No guarding or rebound. Nonsurgical abdomen. No CVA tenderness to palpation. Extremities: No tenderness. No bruising. Normal range of motion. Normal sensation. Skin: No rash or redness. The rest of the physical exam is unremarkable Const Vital Signs: 05/01/25 14:41 05/01/25 18:16 05/01/25 19:43 Temperature 97.9 F 97.9 F Temperature Source Oral Pulse Rate 89 82 89 Respiratory Rate 16 16 16 Blood Pressure 117/89 H 146/88 H 122/78 H Blood Pressure Mean 98 107 92 Pulse Ox 99 100 100 Oxygen Delivery Method Room Air Room Air MDM MDM MDM Narrative Medical decision making narrative: Patient is a 65-year-old female presenting to the emergency department for catheter placement. Patient was seen and examined. Vitals are stable. Patient resting in bed comfortably no acute distress. Ultrasound reviewed from 04/23 and shows bilateral [id number]-[id number] hydronephrosis. Diffuse thickening of the bladder wall with bladder diverticula. Filling defect in dependent portion of the the urinary bladder likely reflective of blood clot or debris. This appears decreased when compared to the previous CT of 01/21/2025. Nonobstructing stone in the lower pole of the right kidney. CBC with no leukocytosis and chronic anemia of 9.4. BMP with actually improved kidney function from January with a BUN of 27 and creatinine of 2.17. Urinalysis with evidence of urinary tract infection with bacteria, WBCs, leukocyte esterase. After voiding, bladder scan was done and postvoid residual is 45 not consistent with retention causing the hydro. I do not think the patient requires a Zepeda catheter at this time. CT of the abdomen pelvis that contrast was obtained given the normal postvoid residual volume. CT shows severe bilateral hydronephrosis with moderate bilateral hydroureter, without a visualized obstructing ureteral calculus on this noncontrast examination. Severe urinary bladder wall thickening, suspicious for bladder outlet obstruction or severe cystitis, which may account for the bilateral collecting system dilation and worsening renal function. Bilateral renal cortical thinning, consistent with chronic obstructive uropathy. Nonobstructive 3 mm right lower pole renal calculus. I spoke with patient's audiology assistant, Dr. Fuentes, who sent the patient in for evaluation. I updated him on the lab and imaging findings. We do not currently have anyone on-call for urology. I explained that my plan was to treat the patient with antibiotics for her urinary tract infection which may be causing severe cystitis which is then causing inflammation of the bladder dawn and causing obstructive pathology including hydro. She is urinating appropriately, 6-7 times today and had a normal postvoid residual. She had stable kidney functioning. I think she is appropriate for outpatient management and he is agreeable. He will follow closely with her outpatient. Patient was given a dose of IV Rocephin here for UTI and prescribed Keflex for outpatient. Patient was updated on the lab and imaging findings. She feels comfortable with the plan. Patient discharged from the Emergency Department. I do not feel that the patient's evaluation reveals any acute reason for admission at this time. I instructed them to either follow-up with their primary care physician or promptly return to the Emergency Department for reevaluation should symptoms worsen or new symptoms develop. I explained what symptoms would indicate the need to return to the emergency department. Shared decision making was used. The patient voiced understanding of the treatment plan and is agreeable with it. Clinical impression: Urinary tract infection Hydronephrosis Kidney disease History & Record Review Discussion w/independent historian: Patient Additional record(s) reviewed:: Prior labs Lab Data Attestation: I reviewed the patient's lab results. Labs: Laboratory Results - last 24 hr 05/01/25 05/01/25 15:40 15:49 WBC 8.2 RBC 3.81 L Hgb 9.4 L Hct 30.4 L MCV 79.8 L MCH 24.7 L MCHC 30.9 L RDW Std Deviation 45.1 H RDW Coeff of Vanessa 15.8 H Plt Count 317 MPV 9.7 Immature Gran % (Auto) 0.500 Neut % (Auto) 70.5 H Lymph % (Auto) 19.2 [place] % (Auto) 8.5 Eos % (Auto) 1.1 Baso % (Auto) 0.2 Absolute Neuts (auto) 5.8 Absolute Lymphs (auto) 1.57 Nucleated RBC % 0 Sodium 139 Potassium 3.6 Chloride 105 Carbon Dioxide 24.0 Anion Gap 11 BUN 27 H Creatinine 2.17 H Estim Creat Clear Calc 24.06 L Est GFR (MDRD) Non-Af 24 L BUN/Creatinine Ratio 12.5 Glucose 95 Calcium 9.6 Urine Color Yellow Urine Clarity Cloudy Urine pH 7.0 Ur Specific [place] 1.005 Urine Protein 100 H Urine Glucose (UA) 50 H Urine Ketones Negative Urine Occult Blood 150 H Urine Nitrite Negative Urine Bilirubin Negative Urine Urobilinogen Normal Ur Leukocyte Esterase 500 H Urine RBC 25-50 SEEN Urine WBC >100 SEEN Ur Squamous Epith Cells 0 SEEN Urine Bacteria 3+ Urine Mucus 0 SEEN Radiography Diagnostic Testing: Clinical Impression(s) from Imaging Studies Abdomen/Pelvis CT 05/01/25 17:22 IMPRESSION: Severe bilateral hydronephrosis with moderate bilateral hydroureter, without a visualized obstructing ureteral calculus on this noncontrast examination. Severe urinary bladder wall thickening, suspicious for bladder outlet obstruction or severe cystitis, which may account for the bilateral collecting system dilation and worsening renal function. Bilateral renal cortical thinning, consistent with chronic obstructive uropathy. Nonobstructive 3 mm right lower pole renal calculus. Reading [facility] Discharge Plan Triage 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: Complaint ED Provider: Kirsten Villarreal Dx/Rx/DC Orders Clinical Impression: Hydronephrosis, UTI (urinary tract infection), Kidney disease Instructions: ED Chronic Kidney Disease (CKD), ED Cystitis Female Adult Prescriptions: New cephalexin 500 mg capsule 500 mg PO Q6 Qty: 40 0RF No Action levothyroxine 100 mcg capsule 100 mcg PO QDAY carbidopa-levodopa [Sinemet] 25-100 mg tablet 1 tab PO TID carbidopa 25 mg tablet 25 mg PO TID cranberry extract 200 mg capsule 200 mg PO QDAY Rx Instructions: administer with a meal cholecalciferol (vitamin D3) [Vitamin D3] 1,000 UNIT tablet 1,000 unit PO BID mycophenolate mofetil [CellCept] 500 mg tablet 500 mg PO BID Probiotic Acidophilus 250 million cell capsule 500 mmu cells PO DAILY multivitamin [Daily Multi-Vitamin] Tablet 1 tab PO DAILY fludrocortisone 0.1 mg tablet 0.2 mg PO DAILY fludrocortisone 0.1 mg tablet 0.1 mg PO QHS ferrous sulfate [Iron (ferrous sulfate)] 325 mg (65 mg iron) tablet 325 mg PO DAILY potassium citrate 10 mEq (1,080 mg) tablet extended release 10 meq PO DAILY amitriptyline 100 mg tablet 100 mg PO QHS acetaminophen 500 mg capsule 1,000 mg PO Q6H PRN (Reason: pain) pantoprazole 20 mg tablet,delayed release (DR/EC) 20 mg PO QDAY Qty: 30 2RF lubiprostone 24 mcg capsule 24 mcg PO BID Qty: 60 2RF Primary Care Provider: Gonzalo Dasilva Referrals: Your urologist [Other] - As soon as possible Gonzalo Dasilva MD [Primary Care Provider, [facility]] - As soon as possible Activity Restrictions/Additional Instructions: Please take the antibiotic 4 times a day for the next 10 days. You need to follow-up with your urologist as soon as possible. If you develop any decreased urination, abdominal pain, flank pain, nausea, vomiting or fevers you need to return immediately. Patient discharged from the Emergency Department. I do not feel that the patient's evaluation reveals any acute reason for admission at this time. I instructed them to either follow-up with their primary care physician or promptly return to the Emergency Department for reevaluation should symptoms worsen or new symptoms develop. I explained what symptoms would indicate the need to return to the emergency department. Shared decision making was used. The patient voiced understanding of the treatment plan and is agreeable with it. Print Language: Uzbek Disposition Disposition: Home, Self Care Discharge Date/Time: 05/01/25 19:43
[2025-05-01 15:47] LABS: Mucous, Urine 0 SEEN /hpf (<or=2+); Squamous Epithelial Cells - UA 0 SEEN /hpf (5-10)
[2025-05-01 15:59] LABS: Hematocrit 30.4 % (37-47); Hemoglobin 9.4 g/dL (12.0-15.0); Immature Granulocytes Count 0.040 X10^3/uL (0.0-0.0); Mean Corp Hgb Conc 30.9 g/dL (32-36); Mean Corpuscular Volume 79.8 fL (81-99); Mean Platelet Vol. 9.7 fl (6.2-12.0); NRBC Flagged by Analyzer 0 % (0-5); Platelet Count 317 K/mm3 (150-450); RBC Distribution Width CV 15.8 % (11.6-14.6); RBC Distribution Width SD 45.1 fl (35.1-43.9); Red Blood Count 3.81 M/mm3 (4.2-5.4); White Blood Count 8.2 K/mm3 (4.4-11.0)
[2025-05-01 16:02] LABS: Color, Urine Yellow (Yellow); Glucose, Dipstick 50 mg/dl (Normal); Ketone-Dipstick Negative (Negative); Leukocyte Esterase-Dipstick 500 /ul (Negative); Nitrite-Dipstick Negative (Negative); Occult Blood-Urine 150 /ul (Negative); Protein-Dipstick 100 mg/dl (Negative); Specific Gravity, Urine 1.005 (1.002-1.030); Urine Bilirubin Dipstick Negative (Negative)
[2025-05-01 16:20] LABS: Red Blood Cells-Urine 25-50 SEEN /hpf (0-5)
[2025-05-01 16:28] LABS: Anion Gap 11 (5-15); BUN 27 mg/dL (4-19); BUN/Creat Ratio 12.5 RATIO (10-20); Calcium,Total 9.6 mg/dL (7.6-11.0); Carbon Dioxide 24.0 mmol/L (21.0-32.0); Chloride 105 mmol/L (98-108); Estimated Creatinine Clearance 24.06 ml/min (50-250); Glucose 95 mg/dL (70-99); Potassium 3.6 mmol/L (3.3-5.1)
--- NOTE | 2025-05-01 17:22 | CT_ITS ---
PROCEDURE: ABDOMEN/PELVIS WITHOUT CONT 05/01/2025 REASON FOR EXAM: KNOWN STONE, HYDRO, WORSENING CR TECHNIQUE: Procedure Code: CTABDPEL Modality: CT Procedure: ABDOMEN/PELVIS WITHOUT CONT Noncontrast technique limits evaluation of the abdominal and pelvic viscera. Coronal and Sagittal reconstruction series were provided. One or more dose reduction techniques were used (e.g., Automated exposure control, adjustment of the mA and/or kV according to patient size, use of iterative reconstruction technique). RADIATION DOSE SUMMARY: CTDlvol: 7 mGy DLP: 167 mGycm COMPARISON: 01/21/2025. FINDINGS: Lung bases are clear. The peripheral soft tissues unremarkable. Stable mild superior endplate compression deformity of L3. Partial lumbarization of S1. Mild atherosclerosis. Normal caliber abdominal aorta. The liver is unremarkable. The gallbladder is surgically absent. The pancreas, spleen, adrenals unremarkable. Moderate bilateral hydroureter and severe bilateral hydronephrosis without visualized obstructing calculi. Right kidney simple cysts. Right kidney lower pole 3 mm nonobstructive calculus. Bilateral renal cortical thinning. Severe wall thickening of the urinary bladder. Anteverted uterus. Sigmoid colon anastomotic suture. Normal caliber large and small bowel without surrounding inflammatory changes. Dense colonic stool likely representing constipation. CT/Abdomen/Pelvis without Cont IMPRESSION: Severe bilateral hydronephrosis with moderate bilateral hydroureter, without a visualized obstructing ureteral calculus on this noncontrast examination. Severe urinary bladder wall thickening, suspicious for bladder outlet obstructi on or severe cystitis, which may account for the bilateral collecting system dilation and worsening renal function. Bilateral renal cortical thinning, consistent with chronic obstructive uropathy . Nonobstructive 3 mm right lower pole renal calculus. Reading Location: [facility]
[2025-05-01 18:16] VITALS: BP 146/88; PULSE 82; RESP 16; O2SAT 100
[2025-05-01 19:43] VITALS: BP 122/78; PULSE 89; RESP 16; TEMP 36.6; O2SAT 100
== END 2025-05-01 19:43 | disposition home or self-care (01) ==
PROVIDERS: Emergency Provider Student in an Organized Health Care Education/Training Program; PCP Family Medicine; Visit Provider Student in an Organized Health Care Education/Training Program
DX: N13.6 Pyonephrosis (principal); J43.9 Emphysema, unspecified; N18.30 Chronic kidney disease, stage 3 unspecified; Z86.718 Personal history of other venous thrombosis and embolism; K21.9 Gastro-esophageal reflux disease without esophagitis; E03.9 Hypothyroidism, unspecified; Z79.890 Hormone replacement therapy; Z79.899 Other long term (current) drug therapy
CPT/HCPCS: 74176; 80048; 81001; 85025; 87077; 87086; 87088; 87186; 96365; 96366; 99282; A4216

== ENCOUNTER 2025-05-08 10:34 | Outpatient (CLI) | payer MEDICARE, MEDICAID, SELFPAY ==
[2025-05-08 10:55] VITALS: BP 119/83; PULSE 67; RESP 16; TEMP 36.4; O2SAT 98; BMI 27.4
[2025-05-08] MEDS: Iron Sucrose Complex (Venofer) 200 MG in 0.9% NaCl 100 ML 220 MG IV (10:59)
[2025-05-08 11:47] VITALS: BP 128/84; PULSE 83; RESP 16; TEMP 36.4; O2SAT 98
== END 2025-05-08 23:59 | disposition home or self-care (01) ==
LOC: MEDOUTP 10:35
PROVIDERS: PCP Family Medicine
DX: N18.30 Chronic kidney disease, stage 3 unspecified (principal); D50.9 Iron deficiency anemia, unspecified
CPT/HCPCS: 96365; J1756; A4216

== ENCOUNTER 2025-05-09 06:29 | Day surgery (SDC) | payer MEDICARE, MEDICAID, SELFPAY ==
--- NOTE | 2025-05-08 16:13 | PAT.ANESEVAL ---
Pre-Assessment Diagnosis/Proposed Procedure Planned Operative Procedure(s): CYSTO, BILATERAL STENT Anesthesia History Anesthesia History - trades helper: Anesthesia History - trades helper Hx Hospitalization Yes: 01/2025-- LOW HGB 05/08/25 13:43 Any Problems With Anesthesia No 05/08/25 13:43 Cholinesterase deficiency No 05/08/25 13:43 You/Your Family Experience No 05/08/25 13:43 fever (hyperthermia) with Relationship Recent Exposure to Contagious No 02/16/25 06:18 Disease Does patient have nerve No 05/08/25 13:43 stimulator Patient instructed to have device shut off --Does patient have Pacemaker or ICD? When Was Last Pacemaker Check QUESTION #4 FULL TEXT: You/Your Family Experience fever (hyperthermia) with Anesthesia Last Oral Intake Last Oral intake: Last Oral Intake NPO since Meds taken in AM with sips of water? Meds patient instructed to take am of surgery PONV PONV - trades helper: PONV - trades helper Female Yes 05/08/25 13:43 HX of Motion Sickness No 05/08/25 13:43 HX of N/V After Surgery No 05/08/25 13:43 Non-Smoker Yes 05/08/25 13:43 Duration of Surgery greater No 05/08/25 13:43 than 60 minutes Number of Risk Factors 2 05/08/25 13:43 PONV Score Moderate Risk 05/08/25 13:43 Height & Weight Height & Weight: Anesthesia: Height & Weight Height 5 ft 4 in 05/01/25 14:41 Respiratory Assessment Respiratory Assessment - trades helper: Respiratory Tract Infection Hx - trades helper Hx Respiratory Tract Infection No 05/08/25 13:43 STOP Sleep Apnea STOP Sleep Apnea - trades helper: STOP Sleep Apnea - trades helper Hx Hypertension No 05/08/25 13:43 Hx Sleep Apnea No 05/08/25 13:43 CPAP BIPAP Do you snore loudly (louder No 05/08/25 13:43 than talking or can be heard Do you often feel tired/ No 05/08/25 13:43 fatigued/ sleepy during daytime? Has anyone observed you stop No 05/08/25 13:43 breathing during sleep? STOP Results Negative 05/08/25 13:43 QUESTION #5 FULL TEXT : Do you snore loudly (louder than talking or can be heard through closed doors)? 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 Specify any problems FEVER 05/08/25 13:43 Hx of Preganancy in last 3 No 05/08/25 13:43 Months Nurse Filling Out Transfusion [id number] 05/08/25 13:43 & Questions: Date: 05/08/25 05/08/25 13:43 Time: 13:45 05/08/25 13:43 Patient unable to answer at this time (ie. confused, unrespo /Reproduction History /Reproductive History - trades helper: /Reproductive Hx- trades helper Hx Now Gestational Age (in weeks): EDC: Hx Hx Para Hx Section SAB No 05/08/25 13:43 Does the father of the baby or his family experience fever w Father of the baby Malignant Hypertension history comment Active Medications Active Medications: Current Medications Generic Name Dose Route Start Last Admin Trade Name Freq PRN Reason Stop Dose Admin Cefazolin Sodium 2 gm/ Sodium 110 mls @ 200 mls/hr 05/09/25 07:00 Chloride IV 05/09/25 07:32 INTRAOP ONE PFSH Medical History Loss of hearing Walker as ambulation aid Low iron Injury of head and neck History of hiatal hernia Gastric reflux Back pain Parkinson's disease Orthostatic hypotension History of steroid therapy Wears glasses Post-menopausal Cancer Arthritis History of renal disease DVT (deep venous thrombosis) Easy bruising Syncope Dietary restriction History of diverticulitis Interstitial emphysema of lung Non-smoker History of edema Overactive bladder Intramural leiomyoma of uterus Esophageal dysmotility Abnormal Pap smear of vagina and vaginal HPV Positive P-ANCA titer Hypothyroid Home Medications ?Medication ?Instructions ?Recorded ?Last Taken ?Type cholecalciferol (vitamin D3) 25 1,000 unit PO BID 06/28/18 05/01/25 History mcg (1,000 unit) tablet (Vitamin D3) mycophenolate mofetil 500 mg 500 mg PO BID 03/04/24 05/01/25 History tablet (CellCept) levothyroxine 100 mcg capsule 100 mcg PO QDAY 04/06/24 05/01/25 History Lactobacillus acidophilus 250 500 mmu cells PO DAILY 06/02/24 05/01/25 History million cell capsule (Probiotic Acidophilus) carbidopa 25 mg-levodopa 100 mg 1 tab PO TID 10/11/24 05/01/25 History tablet (Sinemet) carbidopa 25 mg tablet 25 mg PO TID 11/08/24 05/01/25 History multivitamin (Daily Multi-Vitamin 1 tab PO DAILY 12/19/24 05/01/25 History tablet) fludrocortisone 0.1 mg tablet 0.2 mg PO DAILY 12/29/24 05/01/25 History ferrous sulfate 325 mg (65 mg 325 mg PO DAILY 02/12/25 04/30/25 History iron) tablet (Iron (ferrous sulfate)) fludrocortisone 0.1 mg tablet 0.1 mg PO QHS 02/12/25 04/30/25 History pantoprazole 20 mg tablet,delayed 20 mg PO QDAY #30 tabs 03/21/25 05/01/25 Rx release lubiprostone 24 mcg capsule 24 mcg PO BID #60 caps 03/22/25 05/01/25 Rx acetaminophen 500 mg capsule 1,000 mg PO Q6H PRN pain 05/01/25 04/27/25 History amitriptyline 100 mg tablet 100 mg PO QHS 05/01/25 04/30/25 History cephalexin 500 mg capsule 500 mg PO Q6 #40 CAPSULES 05/01/25 Unknown Rx potassium citrate 10 mEq (1,080 10 meq PO BID 05/01/25 05/01/25 History mg) tablet,extended release estradiol 0.01% (0.1 mg/gram) 1 g vaginal MOTH 05/08/25 Unknown History vaginal cream Allergy/AdvReac Type Severity Reaction Status Date / Time cetirizine (From [facility]) Allergy Intermediate Rash Verified 05/08/25 13:08 erythromycin base AdvReac Intermediate Diarrhea Verified 05/08/25 13:08 azithromycin AdvReac Mild Diarrhea Verified 05/08/25 13:08 Family History Mother Thyroid disorder Hypertension Father Heart disease Hypertension COPD (chronic obstructive pulmonary disease) Surgical History History of hand surgery History of lithotripsy Hx of biopsy S/P laparoscopic appendectomy Hx of colonoscopy History of esophagogastroduodenoscopy (EGD) Hx of tubal ligation Hx of bladder repair surgery H/O thymectomy History of spinal fusion History of cholecystectomy History of colon resection Social History Smoking Status: Never smoker alcohol intake: current alcohol intake frequency: holidays/special occasions only Audit: Pertinent Findings Pertinent Findings EKG Perinent findings: January 21, 2025. Sinus tachycardia at 108 bpm. Minimal LVH. Nonspecific T wave abnormality. Additional pertinent findings: 05/01/2025. Hemoglobin 9.4. Creatinine of 2.17. Recommendation Anesthesia Recommendation Anesthesia recommendation: OPTIMIZED for anesthesia
[2025-05-09] VITALS (10 sets, daily range): BP systolic 108–128; BP diastolic 69–76; PULSE 71–78; RESP 16–18; TEMP 36.7–36.9; O2SAT 97–100; BMI 26.4
--- OUTSIDE RECORDS SUMMARY | 2025-05-09 06:39 | XMS RPT_ITS | CCD ---
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 Name Role Phone Priyanka Smith MD Primary Care Provider Regulo Mendoza MD Unavailable MATHEW YANG JR Referring Unavaila PRIYANKA Gilbert Primary Care Unavailable PRIYANKA SMITH Primary Care Unavailable MATHEW YANG JR Referring Unavaila PRYIANKA Gilbert Primary Care Unavailable PRIYANKA SMITH Primary Care Unavailable JOHN MG Attending Unavailable JOHN MG Admitting Unavailable Priyanka Smith MD Primary Care Provider Regulo Mendoza MD Unavailable Priyanka Smith MD Primary Care Provider Priyanka Smith Primary Care Provider Clarice BHATT, Katherine Holder Unavailable Audi Bae MD Unavailable Phong Blake MD Unavailable Tannhof RIPSAWYER.Jacqueline DAWSON Unavailable Amadou RIPSAWYER.Juwan DAWSON Unavailable MATHEW YANG JR Admitting Unavaila MATHEW Garcia JR Attending Unavaila MATHEW Garcia JR Referring Unavaila PRIYANKA Gilbert Primary Care Unavailable Tannhof RIPSAWYER.Jacqueline DAWSON Unavailable Unavail able Tannhof RIPSAWYER.Jacqueline DAWSON Unavailable Dr. Priyanka Smith MD Primary Care Provider Dr. Priyanka Smith MD Referring Provider Hilary Solares Attending Provider [facility] RIPSAWYER.Jacqueline DAWSON Unavailable [facility] RIPSAWYER.Jacqueline DAWSON Unavailable Luis BHATT, Dr. Cooley Primary Care Provider [phone] Luis BHATT, Dr. Cooley Referring Provider Hilary Solares Attending Provider Cipriano ABARCA, Dr. Burgess Attending Provider Brown BHATT, Dr. Sánchez Primary Care Provider Brown BHATT, Dr. Sánchez Referring Provider Cipriano ABARCA, Dr. Burgess Other Provider Hilary Solares Referring Provider Dr. Michelle Mosher DO Emergency Provider Reji BHATT, Regulo Unavailable [phone] Jasmyne Day MD Primary Care Provider Luis BHATT, Dr. Cooley Primary Care Physician Luis BHATT, Dr. Cooley Referring Provider Hilary Solares Attending Physician Cipriano ABARCA, Dr. Burgess Attending Physician Brown BHATT, Dr. Sánchez Primary Care Physicia n Cipriano ABARCA, Dr. Burgess Nurse Practitioner Dr. Michelle Mosher DO Attending Physician Dr. Michelle Mosher DO Emergency Department Physi santy KATHERINE BOWEN Admitting Unavailable KATHERINE BOWEN Attending Unavailable LUIS, PRIYANKA Primary Care Unavailable ANTONY AWAD Referring Unavailable LUIS, PRIYANKA Primary Care Unavailable PHONG BLAKE Attending Unavailable PRIYANKA SMITH Primary Care Unavailable NONE, PCP Referring Unavailable LUIS, PRIYANKA Primary Care Unavailable MAURILIO GROVES Admitting Unavailable JESSE DO Attending Unavailable STEVE, PEPITO Consulting Unavailable KARISSA, MICHELLE Referring Unavailable ELDERBROCK, PRIYANKA Primary Care Unavailable MOSCHELLA, JENNIE Consulting Unavailable VALENTEA, JENNIE Admitting Unavailable SPIKE STRANGE Attending Unavailable KATHERINE BOWEN Consulting Unavailable SAM MACHADO Consulting Unavailable PEPITO STEVE Consulting Unavailable Friend, Aditya Attending Unavailable Elderbrock, Priyanka Referring Unavailable Elderbrock, Priyanka Primary Care Unavailable Bursley, Gonzalo Primary Care Unavailable Friend, Aditya Attending Unavailable Bursley, Gonzalo Referring Unavailable Bursley, Gonzalo Referring Unavailable Friend, Aditya Attending Unavailable Bursley, Gonzalo Primary Care Unavailable Michelle Mosher Attending Unavailable Bursley, Gonzalo Primary Care Unavailable Hilary Soto Referring Unavailable Hilary Soto Attending Unavailable Bursley, Gonzalo Primary Care Unavailable Bursley, Gonzalo Referring Unavailable Friend, Aditya Consulting Unavailable Friend, Aditya Attending Unavailable Bursley, Gonzalo Primary Care Unavailable Friend, Aditya Attending Unavailable Friend, Aditya Consulting Unavailable Elderbrock, Priyanka Referring Unavailable Elderbrock, Priyanka Primary Care Unavailable Friend, Aditya Consulting Unavailable Friend, Aditya Attending Unavailable Bursley, Gonzalo Primary Care Unavailable Bursley, Gonzalo Referring Unavailable Hilary Soto Attending Unavailable Elderbrock, Priyanka Referring Unavailable Elderbrock, Priyanka Primary Care Unavailable Hilary Soto Attending Unavailable Bursley, Gonzalo Primary Care Unavailable Bursley, Gonzalo Referring Unavailable Bursley, Gonzalo Referring Unavailable Hilary Soto Attending Unavailable Bursley, Gonzalo Primary Care Unavailable Hilary Soto Attending Unavailable Elderbrock, Priyanka Referring Unavailable Elderbrock, Priyanka Primary Care Unavailable Hilary Soto Attending Unavailable Elderbrock, Priyanka Referring Unavailable Elderbrock, Priyanka Primary Care Unavailable Hilary Soto Attending Unavailable Elderbrock, Priyanka Referring Unavailable Elderbrock, Priyanka Primary Care Unavailable Hilary Solares Attending Physician JASMYNE DAY Referring Unavailab le YASH DAYER B Primary Care Unavailab GEMMA Castellano Attending Unavailable CARLENE DAYOPHBYRON Chopra Primary Care Unavailab LATHA Kruse Attending Unavaila sean ELDERDEMIANCKPRIYANKA D Primary Care Unavailable BENDARAM, LATHA LAWSON Referring Unavaila ble ELDERBROCK, PRIYANKA D Primary Care Unavailable BENDARAM, LATHA LAWSON Referring Unavaila ble ELDERBROCK, PRIYANKA D Primary Care Unavailable LEANDRO VARGAS Attending Unavailable CECILIA TARIQ Referring Unavailable ELDERBROCK, PRIYANKA D Primary Care Unavailable MAIRA CHEN Referring Unavailable ELDERBROCK, PRIYANKA D Primary Care Unavailable JUWAN LAND Referring Unavailable ELDERBROCK, PRIYANKA D Primary Care Unavailable BOGDAN ROBERTS Attending Unavailable ELDERBROCK, PRIYANKA D Primary Care [...] Primary Care Unavailable MAIRA CHEN Attending Unavailable MATHEW YANG JR Referring Unavaila ble ELDERBROCK, PRIYANKA D Primary Care Unavailable MAIRA CHEN Referring Unavailable ELDERBROCK, PRIYANKA D Primary Care Unavailable JASMYNE DAY Referring Unavailab le ELDERBROCK, PRIYANKA D Primary Care Unavailable RIKA ADAM Attending Unavailable [...] Primary Care Unavailable KAREN ALCANTARA Referring Unavailable JASMYNE DAY Primary Care Unavailab le ELDERBROCK, PRIYANKA D Primary Care Unavailable JACQUELINE VALADEZ Attending Unavailabl e ELDERBROCK, PRIYANKA D Primary Care Unavailable KAREN ALCANTARA Attending Unavailable KAREN ALCANTARA Referring Unavailable ELDERBROCK, PRIYANKA D Primary Care Unavailable MATHEW YANG JR Referring Unavaila ble ELDERBROCK, PRIYANKA D Primary Care Unavailable MATHEW YANG JR Referring Unavaila ble ELDERBROCK, PRIYANKA D Primary Care Unavailable PEYTON DIAZ Attending Unavailable ELDERBROCK, PRIYANKA Nely Primary Care Unavailable MATHEW YANG JR Attending Unavaila ble ELDERBROCK, PRIYANKA D Primary Care Unavailable CHARIS LOPEZ Referring Unavailable ELDERBROCK, PRIYANKA D Primary Care Unavailable PEPITO STEVE Referring Unavailable ELDERBROCK, PRIYANKA D Primary Care Unavailable JASMYNE DAY Attending Unavailab le LUIS, PRIYANKA Mckay Primary Care Unavailable JASMYNE DAY Attending Unavailab JASMYNE Cordero Primary Care Unavailab LEANDRO Vaca Attending Unavailable BARLEY, TARIQ Referring Unavailable ELDERBROCK, PRIYANKA D Primary Care Unavailable LEANDRO VARGAS Attending Unavailable BARLEY, TARIQ Referring Unavailable ELDERBROCK, PRIYANKA Mckay Primary Care Unavailable LEANDRO VARGAS Attending Unavailable ELDERDEMIANCK, PRIYANKA Mckay Primary Care Unavailable BARLEY, TARIQ Referring Unavailable EUFEMIA ANGLIN Attending Unavailable BARLEY, TARIQ Referring Unavailable ELDERDEMIANCKPRIYANKA Primary Care Unavailable JASMYNE DAY Primary Care Unavailab WILEY Tellez Attending Unavailable SELF Referring Unavailable ELDERBROCK, PRIYANKA D Primary Care Unavailable KAREN ALCANTARA Referring Unavailable ELDERBROCK, PRIYANKA D Primary Care Unavailable BECCA IMR Attending Unavailable ELDERDEMIANCK, PRIYANKA Mckay Primary Care Unavailable RAUL JUAN Referring Unavailable ELDERBROCK, PRIYANKA Nely Primary Care Unavailable RAUL JUAN Attending Unavailable RAUL JUAN Referring Unavailable ELDERBROCK, PRIYANKA Nely Primary Care Unavailable ELDERDEMIANCK, PRIYANKA D Primary Care Unavailable GEMMA ROBERTS Attending Unavailable BOGDAN ROBERTS Referring Unavailable ELDERBROCK, PRIYANKA Nely Primary Care Unavailable ELDERBROCK, PRIYANKA D Primary Care Unavailable JONATHAN MONTERROSO Attending Unavailable ELDERBROCK, PRIYANKA D Primary Care Unavailable GERMAN GRUBBS Attending Unavailable ELDERDEMIANCK, PRIYANKA D Primary Care Unavailable GEMMA ROBERTS Attending Unavailable BOGDAN ROBERTS Referring Unavailable ELDERBROCK, PRIYANKA Nely Primary Care Unavailable ELDERBROCK, PRIYANKA D Primary Care Unavailable JACQUELINE VALADEZ Attending Unavailabl e ELDERBROCK, PRIYANKA D Primary Care Unavailable JACQUELINE VALADEZ Referring Unavailabl e ELDERBROCK, PRIYANKA D Primary Care Unavailable ELDERBROCK, PRIYANKA D Primary Care Unavailable JUWAN LAND Attending Unavailable ELDERBROCK, PRIYANKA D Primary Care Unavailable WILEY BENITEZ Attending Unavailable PRIYANKA SMITH Primary Care Unavailable CYNDI NAIK Attending Unavailable PRIYANKA SMITH Primary Care Unavailable LATHA CUEVAS Attending Unavaila PRIYANKA Gilbert Primary Care Unavailable PRIYANKA SMITH Attending Unavailable PRIYANKA SMITH Primary Care Unavailable PRIYANKA SMITH Referring Unavailable PRIYANKA SMITH Primary Care Unavailable JASMYNE DAY Attending Unavailab le SELF Referring Unavailable PRIYANKA SMITH Primary Care Unavailable BECCA MIR Attending Unavailable JASMYNE DAY Primary Care Unavailab le WILEY BENITEZ Attending Unavailable JASMYNE DAY Primary Care Unavailab LACY Bunn Attending Unavailable JASMYNE DAY Primary Care Unavailab MATHEW Baugh JR Attending Unavaila JASMYNE Sidhu Primary Care Unavailab le Allergies Allergy Classification Reported Allergen(s) Allergy Type Date of Onset Reaction(s) Facility Cetirizine (4 sources) Cetirizine Drug Allergy 08-07-19 15 Itching [facility] Macrolides (antibiotic) (4 sources) Erythromycin Drug Allergy 09-15-19 23 Diarrhea [facility] (20 sources) Cetirizine; Translations: [CETIRIZINE HCL] Drug Allergy 08-07-19 15 Itching [facility] (20 sources) Seasonal allergy; Translations: [SEASONAL ALLERGIES] Propensity to adverse reactions 08-14-19 10 Cough [facility] Work Phone: (20 sources) environmental [Other] Propensity to adverse reactions 12-29-19 07 [facility] Work Phone: (20 sources) Erythromycin; Translations: [ERYTHROMYCIN] Drug Allergy 09-15-19 23 Diarrhea [facility] (1 source) OTHER; Translations: [OTHER] Propensity to adverse reactions (disorder) 12-29-19 07 [facility] Other [place] [facility] (20 sources) Azithromycin Drug Allergy 03-04-20 24 Diarrhea [facility] (15 sources) Seasonal allergy Environmental allergy 03-04-20 24 Other [facility] (20 sources) Amantadine; Translations: [AMANTADINE] Drug Allergy 08-04-19 25 Contraindicati on-Medical Surgical [facility] Work Phone: (8 sources) Cetirizine Drug Allergy 06-06-19 Rash [facility] (12 sources) ARIPiprazole; Translations: [ARIPIPRAZOLE] Drug Allergy 11-17-19 Contraindicati on-Medical Surgical [facility] (12 sources) Haloperidol; Translations: [HALOPERIDOL] Drug Allergy 11-17-19 Contraindicati on-Medical [facility] (12 sources) Metoclopramide; Translations: [METOCLOPRAMIDE] Drug Allergy 11-17-19 Contraindicati on-Medical [facility] (12 sources) OLANZapine; Translations: [OLANZAPINE] Drug Allergy 11-17-19 Contraindicati [facility] (12 sources) Prochlorperazine ; Translations: [PROCHLORPERAZIN E] Drug Allergy 11-17-19 Contraindicati [facility] (12 sources) Promethazine; Translations: [PROMETHAZINE] Drug Allergy 11-17-19 Contraindicati [facility] (1 source) Azithromycin Drug Allergy 03-02-20 [facility] (1 source) Cetirizine Drug Allergy 03-02-20 [facility] (1 source) Erythromycin Drug Allergy 03-02-20 [facility] Rep[facility] Medications Current Medications Medication [...] Comment on above: Take 1 tablet by [facility] twice daily for 7 days. carbidopa 25 mg oral tablet (20 sources) Aromatic Amino Acid Decarboxylation Inhibitor Start: End: take 1 tablet by mouth three times daily Carbidopa 25 mg tablet Active 25 mg PO THREE TIMES A DAY November 08, 2024 12:00am Complies with drug therapy cholecalciferol 0.025 mg oral tablet (8 sources) Vitamin D Start: 019 take 1 tablet by mouth twice daily Cholecalciferol (Vitamin D3) (Vitamin D3) 1,000 UNIT tablet Active 1000 U PO TWICE A DAY June 28, 2018 1:00am Complies with drug therapy cosyntropin 0.25 mg injection (CORTROSYN) (20 sources) [...] (CORTROSYN) docusate sodium 100 mg oral capsule (14 sources) Start: 01-22-2025 End: 01-26-2025 take 1 [...] on above: Take 1 capsule by mo [facility] twice daily. doxycycline hyclate 100 mg oral tablet (1 source) Tetracycline-class Drug Start: 3 End: 3 take 1 tablet by mouth twice daily doxycycline (VIBRA-TABS) 100 mg tablet Indications: Bronchitis Take 1 tablet by mouth twice daily for 10 days. 20 tablet 0 08/20/2022 08/30/2022 Active Comment on above: Take 1 tablet by [facility] twice daily for 10 days. estradiol 0.1 mg/ml vaginal cream (20 sources) Estrogen Start: 5 End: estradiol (ESTRACE) 0.01 % (0.1 mg/gram) vaginal [...] week. ferrous sulfate 325 mg oral tablet (5 sources) Start: 5 End: 6 take 1 tablet by mouth once daily Ferrous Sulfate (Iron (Ferrous Sulfate)) 325 mg (65 mg iron) tablet Active 325 mg PO DAILY February 12, 2025 12:00am Complies with drug therapy fludrocortisone acetate 0.1 mg oral tablet (20 sources) Start: End: take 0.2 mg by mouth once daily [...] 1 capsule by mo ut once daily. lactobacillus acidophilus 1.5 mg oral capsule (9 sources) Start: 06-02-2024 Lactobacillus Acidophilus (Probiotic Acidophilus) 250 million cell capsule Active 500 NMA PO DAILY June 02, 2024 1:00am Complies with drug therapy Start: 03-13-2019 End: 12-16-2020 take 1 capsule by mouth once daily Lactobacillus acidophilus (FLORAJEN) 460 mg (20 billion cell) cap Indications: Oral thrush Take 1 capsule by mouth once daily. 90 capsule 3 03/13/2019 12/16/2020 Discontinued lubiprostone 0.024 mg oral capsule (1 source) Chloride Channel Activator Start: 03-02-2025 take 1 capsule by mouth twice daily Lubiprostone 24 mcg capsule Active 24 ug PO TWICE A DAY 30 2 March 02, 2025 12:00am Complies with drug therapy multivit-min/iron/f olic acid/K (MULTI-DAY PLUS MINERALS ORAL) (20 sources) take 1 capsule by mouth once daily multivit-min/iron/f olic acid/K (MULTI-DAY PLUS MINERALS ORAL) Take 1 capsule by mouth once daily. Active take 1 capsule by mouth once jet ly multivit-min/iron/folic acid/K (MULTI-DAY PLUS MINERALS ORAL) Take 1 capsule by mouth once daily. 0 Active Comment on above: Take 1 capsule by [facility] once daily. Multivitamin (Daily Multi-Vitamin) tablet (6 sources) Start: 12-19-2024 Multivitamin (Daily Multi-Vitamin) tablet Active 1 {tbl} PO DAILY December 19, 2024 12:00am Complies with drug therapy Start: 12-19-2024 Start: 12-19-2024 Multivitamin ( Daily Multi-Vitamin) tablet Active 1 {tbl} PO DAILY December 19, 2024 12:00am nitrofurantoin, macrocrystals 25 mg / nitrofurantoin, monohydrate 75 mg oral capsule (11 sources) Nitrofuran Antibacterial Start: 08-11-2024 End: 08-18-2024 take 1 capsule by mouth twice daily [...] Comment on above: Take 1 capsule by [facility] twice daily for 7 days. omeprazole 20 mg delayed release oral capsule (20 sources) Proton Pump Inhibitor Start: 0 End: [...] above: Take 1 capsule by mo uth daily before breakfast. 1/2 hr before meal. ondansetron 4 mg disintegrating oral tablet (20 sources) Serotonin-3 Receptor Antagonist Start: 04-06-20 take 1 tablet by mouth every eight hours as needed for nausea and vomiting Ondansetron 4 mg tablet,disintegrati ng Active 4 mg PO Q8H as needed for nausea and vomiting 2024 1:00am Complies with drug therapy Start: 03-23-2024 End: 03-23-2024 4 mg, IntraVENous, [...] (20 sources) Proton Pump Inhibitor Start: 10-11-2024 End: 03-02-2025 take 1 tablet by mouth once daily Pantoprazole 20 mg tablet,delayed release (DR/EC) Active 20 mg PO daily 30 March 02, 2025 8:44am Complies with drug therapy Start: 03-05-2024 End: 03-07-2024 take 40 mg by mouth twice daily before mealtime 40 mg, Oral, 2 times daily before meals, First dose on 03/05/24 at 0700, Do not crush, chew, or split. take 1 tablet by bradley once daily before breakfast pantoprazole (ProtoNix) 40 [...] by bradley three times daily as needed. sulfamethoxazole 400 [...] End: 03-23-2024 1,000 mg, Oral, Once, On Wed03/23/24 at 1130, For 1 dose, Preprocedure, Administer [...] 2100 Start: 11-14-2024 take 1 tablet by bradley once daily at bedtime amitriptyline (ELAVIL) 100 [...] Start: 07-07-2024 take 2 tablets by mo [facility] at bedtime Amitriptyline 50 mg tablet Active 100 mg PO AT BEDTIME July 07, 2024 10:27am Complies with drug therapy Start: 06-09-2024 End: 08-04-2024 take 1 tablet [...] mg PO DAILY@0800 June 28, 2018 1:00am Complies with drug therapy Comment on above: Take 1 tablet by [...] D 500-5 MG-MCG tablet (2 sources) End: 4 take 1 tablet by mouth once in the morning Calcium Carbonate-Vitamin D 500-5 MG-MCG tablet Take 5 mg by mouth in the morning and 5 mg in the evening. 03/04/2024 Discontinued calcium chloride 0.0014 meq/ml / potassium chloride 0.004 meq/ml / sodium chloride 0.103 meq/ml / sodium lactate 0.028 meq/ml injectable solution (10 sources) Start: 5 End: take 50 mL intravenously every hour [...] 11, 2024 12:00am Start: 08-03-2024 End: 01-26-2025 Carbidopa-Levodopa (Sinemet) 25-100 mg tablet Active 1 {tbl} PO THREE TIMES A DAY October 11, 2024 12:00am Complies with drug therapy cefTRIAXone (Rocephin) 1,000 mg in sodium chloride 0.9 % 50 mL IVPB Mini-Bag Plus (4 sources) Start: 01-25-2025 End: 01-26-2025 1,000 mg, IntraVENous, at 10 0 mL/hr, Administer over 30 Minutes, Every 24 hours, First dose on Varsha 01/25/25 at 1400, Mini-Bag Plus bag, Suspected Indication (Select all that apply): Urinary Tract Infection Start: 03-05-2024 End: 03-08-2024 1,000 mg, IntraVENous, at 10 0 mL/hr, Administer over 30 Minutes, Every 24 hours, First dose on [place]bin 03/05/24 at 0400, Mini-Bag Plus bag, Suspected [...] Comment on above: Take 1 capsule by [facility] twice daily for 7 days. diazePAM 5 mg oral tablet (8 sources) Benzodiazepine Start: 06-28-19 End: 07-01-19 take [...] Take 1 tablet by bradley th once daily for 14 days. Geriatric Mxwtbypc-Wrla-Egqg (Complete Senior) 1 EACH tablet (8 sources) Start: 06-28-2018 End: 12-19-2024 take 1 tablet by mouth once daily Geriatric Wcphxsce-Oktq-Lnix (Complete Senior) 1 EACH tablet Discontinued 1 NMA PO DAILY June 28, 2018 1:00am December 19, 2024 12:39pm Start: 06-28-2018 take 1 tablet by bradley th once daily Geriatric Wrhpjzpy-Azwz-Qsrp (Complete Senior) 1 EACH tablet Active 1 NMA PO DAILY June 28, 2018 1:00am 0.5 ml heparin sodium, porcine 61996 unt/ml prefilled syringe (2 sources) Unfractionated Heparin, [...] 11/14/2024 Discontinued ibuprofen 400 mg oral tablet (8 sources) Nonsteroidal Anti-inflammatory Drug Start: 12-26-2017 End: 06-05-2018 take 1 tablet by mouth every four hours as needed for pain Ibuprofen 400 MG tablet Discontinued 400 mg PO EVERY 4 HOURS NEEDED as needed for Mild Pain (-07/24) 0 December 26, 2017 12:00am June 05, 2018 10:01am iv contrast (will be provided with radiology test) (6 sources) Start: 05-22-2022 End: 02-06-2023 iv contrast (will be provided with radiology [...] dose. Start: 2024 take 1 capsule by [facility] once daily Levothyroxine 100 mcg capsule Active 100 ug PO daily 2024 1:00am Complies with drug therapy Start: 06-04-2020 End: 06-20-2025 take 1 tablet [...] tablet by bradley th once daily. Take on empty stomach lidocaine hydrochloride 0.02 mg/mg topical gel (3 sources) Antiarrhythmic, Amide Local Anesthetic Start: 12-01-2023 End: 12-01-2023 lidocaine urojet 2 % 6 mL topical gel (GLYDO) Start: 12-01-2023 End: 12-01-2023 lidocaine urojet 2 % 6 mL to pical gel (GLYDO) Start: 01-15-2023 End: 01-15-2023 lidocaine 10 mg/mL (1 %) 600 mg injection (XYLOCAINE) linaclotide 0.072 mg oral capsule (9 sources) Guanylate Cyclase-C Agonist Start: 11-08-2024 End: [...] on above: Take one(1) tablet d rory. mycophenolate mofetil 500 mg oral tablet (20 sources) Start: 03-05-2024 End: 03-09-2024 take 1000 mg by mouth once daily [...] End: 10-11-2024 take 1 tablet by mouth at bedtime Mycophenolate Mofetil 500 mg tablet Discontinued 500 mg PO AT BEDTIME June 02, 2024 1:00am October 11, 2024 10:10am Start: 05-10-2023 End: 05-22-2024 take 2 tablets [...] 2 in am and one in pm 1 ml naloxone hydrochloride 0.4 mg/ml injection (2 sources) Opioid Antagonist Start: 4 End: 4 0.4 mg, IntraVENous, Every 5 min PRN, opioid reversal, respiratory depression, Starting on 03/05/24 at 1659, +++ For RR nystatin 172192 unt/ml oral suspension (20 sources) Polyene Antifungal [...] End: 01-22-2025 plecanatide 3 mg oral tablet (16 sources) Start: 11-21-2024 End: 02-12-2025 take 1 tablet by mouth once daily Plecanatide (Trulance) 3 mg tablet Discontinued 3 mg PO daily 30 November 21, 2024 12:00am February 12, 2025 1:08pm polyethylene glycol 3350 44319 mg powder for oral solution (7 sources) [...] Start: 01-28-2023 End: 02-27-2023 polyethylene glycol 3350 (NM RALAX) 17 gram/dose powder Take 17 g by mouth once daily. Dissolve dose in 4 - 8 ounces of liquid and take as directed. 476 g 2 01/28/2023 02/27/2023 Active Comment on above: Take 17 g by mouth o nce daily. Dissolve dose in 4 - 8 ounces of liquid and take as directed. polyethylene glycol 3350 348869 mg / potassium chloride 2970 mg / sodium bicarbonate 6740 mg / sodium chloride 5860 mg / sodium sulfate 74176 mg powder for oral solution (5 sources) Osmotic Laxative Start: 12-29-2024 End: 01-21-2025 Peg 3350-Electrolytes (Golytely) 236-22.74-6.74 -5.86 gram recon soln Discontinued 240 mL PO Q10M 4000 0 December 29, 2024 12:00am January 21, 2025 8:15pm until fecal effluent is clear microencapsulated potassium chloride 10 meq extended release oral tablet (10 sources) Start: 01-23-2025 End: 01-23-2025 40 mEq, [...] back to 10 mg a day PREVAGEN (8 sources) Start: 025 End: PREVAGEN Discontinued 1 NMA PO DAILY June 02, 2024 1:00am October 11, 2024 10:10am 1 ml promethazine hydrochloride 25 mg/ml injection (2 sources) Phenothiazine Start: 024 End: inject 6.25 mg by intramuscular injection [...] frequent line interruptions/ long duration, Starting on Wed03/23/24 at 1633, Recovery (only), For piggyback infusion, [...] pain; Translations: [Epigastric pain] Onset: 5 Episodic Chronic kidney disease (20 sources) Chronic [...] disease, without long-term current use of insulin ([facility])] Onset: 5 Chronic Diabetes mellitus without complication (2 sources) Increased glucose level; Translations: [Other abnormal glucose] 12-28-2023 Episodic Diabetes mellitus without complication (1 source) Diabetes mellitus without complication; Translations: [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, without long-term current use of insulin ([facility])] Onset: 5 Disorders of lipid metabolism (1 source) Hypertriglyceridemia; Translations: [Pure hyperglyceridemia] 02-02-2024 Chronic Diverticulosis and diverticulitis (20 sources) Diverticular disease; Translations: [Diverticulosis of intestine, part unspecified, without perforation or abscess without bleeding] Onset: 0 Resolved: 9 07-08-2018 Chronic Esophageal disorders (20 sources) Esophageal dysmotility; [...] of urine; Translations: [Urge incontinence] 01-15-2023 Chronic Genitourinary symptoms and ill-defined conditions (20 sources) Urgent desire to urinate; Translations: [Urgency of urination] Onset: 4 Episodic Immunity disorders (1 source) Antisynthetase syndrome; 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, 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 Menopausal disorders (20 sources) Postmenopausal bleeding; Translations: [Postmenopausal bleeding] Onset: 9 11-25-2018 Chronic Other aftercare (3 sources) Long-term current use of immunosuppressive drug; Translations: [Other terminal carman (current) drug therapy] Episodic Other aftercare (1 source) Post-discharge follow-up; Translations: [Encounter for follow-up examination after completed treatment for conditions other than malignant neoplasm] 03-16-2024 Episodic Other aftercare (3 sources) longterm systemic 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; 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] [...] menstrual cycle] 10-07-2023 Episodic Other gastrointestinal disorders (19 sources) Irritable bowel syndrome characterized by constipation; Translations: [Irritable bowel syndrome with constipation] 11-21-2024 Chronic Other gastrointestinal disorders (2 sources) Irritable bowel syndrome with constipation; Translations: [Irritable bowel syndrome with constipation] Onset: 5 Chronic Other gastrointestinal disorders (1 source) Chronic constipation; Translations: [Other constipation] Episodic Other gastrointestinal disorders (20 sources) Constipation; Translations: [Constipation, unspecified] 10-11-2024 Episodic Other hereditary and degenerative nervous system [...] Onset: 8 Resolved: 9 06-22-2023 Chronic Other upper respiratory infections (1 source) Chronic sinusitis; Translations: [Chronic sinusitis, unspecified] Chronic Other upper respiratory infections (1 source) Sore throat symptom; Translations: [Acute pharyngitis, unspecified] Episodic Parkinson`s disease (1 source) Parkinson`s disease; Translations: [Parkinson's disease, unspecified whether dyskinesia present, unspecified whether manifestations fluctuate (HCC)] Onset: Prolapse of female genital organs (3 sources) Midline cystocele; Translations: [Cystocele, midline] Chronic Residual codes; unclassified (1 source) REM sleep behavior disorder; Translations: [REM sleep behavior disorder] 11-16-2024 Chronic Residual codes; unclassified (1 source) REM sleep behavior disorder; Translations: [REM sleep behavior disorder] Onset: Chronic Residual codes; unclassified (1 source) History of immunosuppressive therapy; Translations: [Personal history of immunosupression therapy] Episodic Residual codes; unclassified (1 source) Postoperative state; Translations: [Other specified postprocedural states] 02-25-2023 Episodic Residual codes; unclassified (1 source) Presence of neurostimulator; Translations: [Other postprocedural status] 09-02-2023 Episodic Residual codes; unclassified (1 source) Postmenopausal state; Translations: [Asymptomatic menopausal state] 07-11-2024 Episodic Residual codes; unclassified (8 sources) History of insertion of stent into [...] [Acute cystitis with hematuria] Onset: 4 Episodic Past or Other Problems Problem Classification Problem Date Documented Da te Episodic/Chronic Administrative/social admission (20 sources) Discharge status; Translations: [Encounter for administrative examinations, unspecified] Onset: 03-25-2020 03-26-2020 Episodic Allergic reactions (20 sources) Urticaria; Translations: [Urticaria, unspecified] Onset: 03-03-2012 Resolved: 10-01-2017 10-01-2017 Episodic Calculus of urinary tract (19 sources) Kidney stone; Translations: [Calculus of kidney] Onset: 08-11-2022 Episodic Cancer; other and unspecified primary (20 sources) Malignant thymoma; 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] Onset: 02-12-2020 Resolved: 06-22-2023 02-12-2020 Chronic Conditions associated with dizziness or vertigo (20 sources) Dizziness; Translations: [Dizziness and giddiness] Onset: 01-13-2019 01-13-2019 Episodic E Codes: Fall (20 sources) Fall; Translations: [Unspecified fall, initial encounter] Onset: 09-28-2024 03-01-2024 Episodic E Codes: Fall (5 sources) Fall in home 09-11-2024 E Codes: Place of occurrence (1 source) Unspecified place in unspecified non-institutional (private) residence as the place of occurrence of the external cause; Translations: [Fall in home, initial encounter] Onset: 09-28-2024 Episodic Immunizations and screening for infectious disease (7 sources) Vaccination needed; Translations: [Encounter for immunization] Onset: 12-06-2024 Episodic Malaise and fatigue (20 sources) Asthenia; Translations: [Weakness] Onset: 06-14-2018 Resolved: 06-19-2018 06-19-2018 Episodic Mycoses (20 sources) Candidiasis of the esophagus; Translations: [Candidal [...] Long-term current use of systemic steroid; 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] Onset: 10-30-2022 Episodic Other aftercare (20 sources) Taking high risk medication; Translations: [Other terminal carman (current) drug therapy] Onset: 10-30-2022 Episodic Other aftercare (1 source) longterm (current) use of systemic steroids; Translations: [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] Onset: 05-05-2024 Episodic Other circulatory disease (20 sources) Orthostatic hypotension; Translations: [Orthostatic hypotension] Onset: 06-18-2018 07-08-2018 Episodic Other circulatory disease (1 source) Orthostatic hypotension; Translations: [Orthostatic hypotension] Onset: 07-08-2018 Episodic Other connective tissue disease (20 [...] Resolved: 02-06-2010 02-06-2010 Episodic Other gastrointestinal disorders (3 sources) Constipation, unspecified; Translations: [Constipation, unspecified] Onset: 11-16-2024 Episodic Other gastrointestinal disorders (1 source) Dysphagia, [...] mammogram for malignant neoplasm of breast] Onset: 05-23-2024 Resolved: 02-06-2010 Episodic Residual codes; unclassified (1 source) Asymptomatic menopausal state; Translations: [Post-menopausal] Onset: 07-10-2024 Episodic Syncope (6 sources) Syncope and collapse; Translations: [Syncope and collapse] Onset: 03-04-2024 03-04-2024 Episodic Unclassified (1 source) Patient encounter status 12-06-2024 Viral infection (9 sources) Genital warts; Translations: [Anogenital (venereal) warts] Onset: 12-06-2024 12-06-2024 Episodic Results Test Name Value Interpretation Reference Range Facility Gastroenterology Visit Repor ton 03-02-2025 Gastroenterology Visit Report [facility] [address] [place] [address] OFFICE VISIT Date of Service: 03/02/25 MR#: [id number] Acct: [id number] Name: EREN MERCHANT Rep #: [id number] : 1960 Provider: KAUSHAL Alas Age/Sex: 64/F Location: [facility] [place] Status: Signed Intake Vital Signs 12/22/24 12:21 02/16/25 06:20 Height 5 ft 5 in 5 ft 5 in Intake Visit Reasons: Test Result/Abdominal pain 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: Constipation Funeral Arranger Required: No Accompanied by: Self Is patient in pain?: No Allergies cetirizine (From [facility]) Allergy (Intermediate, Verified 03/02/25 08:27) Rash erythromycin base Adverse Reaction (Intermediate, Verified 03/02/25 08:27) Diarrhea azithromycin Adverse Reaction (Mild, Verified 03/02/25 08:27) Diarrhea Medications ???Medication ???Instructions ???Recorded ???Confirmed ???Type aspirin 81 mg chewable tablet 81 mg PO DAILY@0800 06/28/1803/02 History cholecalciferol (vitamin D3) 25 1,000 unit PO BID 06/28/18 5 History mcg (1,000 unit) tablet (Vitamin D3) mycophenolate mofetil 500 mg 500 mg PO BID 03/04/24 03/02/25 Hi story tablet (CellCept) levothyroxine 100 mcg capsule 100 mcg PO QDAY 04/06/24 03/02/25 History ondansetron 4 mg disintegrating 4 mg PO Q8H PRN nausea and vomitin g 04/06/24 03/02/25 History tablet Lactobacillus acidophilus 250 500 mmu cells PO DAILY 06/02/24 History million cell capsule (Probiotic Acidophilus) amitriptyline 50 mg tablet 100 mg PO QHS 07/07/24 03/02/25 Hi story carbidopa 25 mg-levodopa 100 mg 1 tab PO TID 10/11/24 03/02/25 His tory tablet (Sinemet) carbidopa 25 mg tablet 25 mg PO TID 11/08/24 03/02/25 His tory multivitamin (Daily Multi-Vitamin 1 tab PO DAILY 12/19/24 03/02/25 History tablet) fludrocortisone 0.1 mg tablet 0.2 mg PO DAILY 12/29/24 03/02/25 History ferrous sulfate 325 mg (65 mg 325 mg PO DAILY 02/12/25 03/02/25 History iron) tablet (Iron (ferrous sulfate)) fludrocortisone 0.1 mg tablet 0.1 mg PO QHS 02/12/25 03/02/25 Hi story lubiprostone 24 mcg capsule 24 mcg PO BID #30 caps 03/02/25 Rx pantoprazole 20 mg tablet,delayed 20 mg PO QDAY #30 tabs 03/02/25 1 Rx release Have you fallen in the past year?: No PFSH Medical History Loss of hearing Walker as ambulation aid Low iron Injury of head and neck History of hiatal hernia Gastric reflux Back pain Parkinson's disease Orthostatic hypotension History of steroid therapy Wears glasses Post-menopausal Cancer Arthritis History of renal disease DVT (deep venous thrombosis) Easy bruising Syncope Dietary restriction History of diverticulitis Interstitial emphysema of lung Non-smoker History of edema Overactive bladder Intramural leiomyoma of uterus Esophageal dysmotility Abnormal Pap smear of vagina and vaginal HPV Positive P-ANCA titer Hypothyroid Surgical History History of hand surgery History of lithotripsy Hx of biopsy S/P laparoscopic appendectomy Hx of colonoscopy History [...] holidays/special occasions only HPI HPI 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: Constipation Details: EREN MERCHANT, is a 64 F [...] for 14 days. Scheduled for EGD EGD 1.21.25;- Normal esophagus. Biopsied. - Small hiatal hernia. - Normal second portion of the duodenum. OV 2..25 Pt doing well today. Reviewed EGD results Swallowing i (more content not included)... Normal [facility] Colonoscopy Reporton 025 Colonoscopy Report [facility] Medical Records Department [address] [place] [address] Colonoscopy Report MR#: [id number] Acct: [id number] Name: EREN MERCHANT Rep #: [id number] : 1960 64 From: Aditya Cota DO PCP: Dr. Gonzalo Day MD [place] [facility] [place] Name: Eren Merchant Procedure Date: 02/16/2025 7:44 AM Date of : 1960 Age: 64 Procedure: Colonoscopy Indications: Generalized abdominal pain Providers: Aditya Cota DO Referring MD: Gonzalo Day Medicines: Monitored Anesthesia Care Patient Profile: This is a 64 year old female. Refer to note in patient chart for documentation of history and physical. Last Colonoscopy: within the past 3 months. Complications: No immediate complications. Procedure: Pre-Anesthesia Assessment: [...] through the anus and advanced to the cecum, identified by appendiceal orifice and ileocecal valve. The colonoscopy was performed without difficulty. The patient tolerated the procedure well. The quality of the bowel preparation was poor. The ileocecal valve, appendiceal orifice, and rectum were photographed. Scope In: 7:53:10 AM Scope Withdrawal Time 0 hours 3 minutes 9 seconds Scope Out: 8:01:42 AM Total Procedure Duration Time 0 hours 8 minutes 32 seconds Findings: The perianal and digital rectal examinations were normal. A large amount of extensive amounts of copious quantities of liquid semi-liquid semi-solid solid stool was found in the entire colon, precluding visualization. Lavage of the area was performed using greater than 500 mL of sterile water, resulting in incomplete clearance with continued poor visualization. Impression: - Preparation of the colon was poor. - Stool in the entire examined colon. - No specimens collected. Recommendation: - Discharge patient to home. - Resume previous diet. - Continue present medications. - Repeat colonoscopy because the bowel preparation was poor. Strategy for a future colonoscopy A third attempt will require a more intensive preparation protocol and careful management tailored to the patient's needs. Inpatient vs. outpatient preparation Consider an inpatient (hospital) preparation, which can be safer for elderly patients with mobility issues or other comorbidities like Parkinson's disease. This allows for direct nursing supervision to manage fluid intake and toilet transfers. Intensive, extended dietary restrictions Low-fiber diet: The patient should follow a low-fiber or low-residue diet for 3 to 5 days before the procedure, longer than the typical 1 to 2 days. This reduces the amount of fiber and undigested food in the colon. Clear liquid diet: The clear liquid diet should be strictly followed the entire day before the procedure. Hydration: Aggressive hydration with clear liquids is essential throughout the preparation to combat potential dehydration and help flush the colon. Intensive, split-dose regimen A split-dose preparation regimen is a standard for patients with a history of poor prep. Regimen: A commonly used regimen includes an oral laxative, such as bisacodyl, followed by a polyethylene glycol (PEG) solution spli (more content not included)... Normal [facility] MR/OP.PROVATon 02-16-2025 MR/OP.[facility] Medical Records Department [address] [place] [address] Provation Physician Letter MR#: [id number] Acct: [id number] Name: EREN MERCHANT Rep #: [id number] : 1960 64 From: Aditya Friend PCP: Dr. Gonzalo Day MD [place] [facility] [place]/16/2025 Gonzalo Day Re : Colonoscopy procedure for Eren Merchant Dear Brown This procedure was performed on Sunday, February 16, 2025. My impressions and recommendations are as follows: Impressions : - Preparation of the colon was poor. - Stool in the entire examined colon. - No specimens collected. Recommendations : - Discharge patient to home. - Resume previous diet. - Continue present medications. - Repeat colonoscopy because the bowel preparation was poor. Strategy for a future colonoscopy A third attempt will require a more intensive preparation protocol and careful management tailored to the patient's needs. Inpatient vs. outpatient preparation Consider an inpatient (hospital) preparation, which can be safer for elderly patients with mobility issues or other comorbidities like Parkinson's disease. This allows for direct nursing supervision to manage fluid intake and toilet transfers. Intensive, extended dietary restrictions Low-fiber diet: The patient should follow a low-fiber or low-residue diet for 3 to 5 days before the procedure, longer than the typical 1 to 2 days. This reduces the amount of fiber and undigested food in the colon. Clear liquid diet: The clear liquid diet should be strictly followed the entire day before the procedure. Hydration: Aggressive hydration with clear liquids is essential throughout the preparation to combat potential dehydration and help flush the colon. Intensive, split-dose regimen A split-dose preparation regimen is a standard for patients with a history of poor prep. Regimen: A commonly used regimen includes an oral laxative, such as bisacodyl, followed by a polyethylene glycol (PEG) solution split between the evening before and the morning of the procedure. PEG 2+2: A proven regimen for previously failed prep involves 15 mg of bisacodyl, followed by 2 liters of PEG solution the evening before, and another 2 liters on the morning of the procedure. Timing: The second dose must be completed within 5 hours of the procedure start time to maximize its cleansing effect. Azithromycin 500 mg p.o. x 5 days during the week of the procedure to help GI motility, simethicone 5 mL p.o. twice daily during the week of the procedure to remove gas My findings are described in the full procedure note, which is enclosed. If I can be of further assistance, please feel free to contact me at . Sincerely, Aditya Cota DO 02/16/2025 8:13:17 AM This report has been signed electronically. 02/16/25812 Date Aditya Cota DO Cosigner Signature: Date (if indicated) CC: Dr. Gonzalo Day MD; Aditya Cota DO Date Dictated: 02/16/25743 Date Transcribed: Fermenter Operator: MATIAS Signed [facility] MR/POSTOP.[facility] 02-16-2025 MR/POSTOP.[facility] Medical Records Department [address] [place] [address] Anesthesia Postop Eval I 02/16/25810 MR#: [id number] Acct: [id number] Name: EREN MERCHANT Rep #: [id number] : 1960 64 From: Sam Sanchez PCP: Dr. Gonzalo Day MD Status:REG [facility] Y Race: C Location: [place] [address] Anesthesia: Postop Eval I Current Vital Signs Temperature: 97.3 F Pulse Rate: 78 Blood Pressure: 127/78 Respiratory Rate: 16 Pulse Ox: 100 Oxygen Delivery Method: Room Air Assessment Airway patent: Yes Spontaneous unlabored respirations: Yes Mental status: Awake nausea: No Vomiting: No Anesthesia Complication: No Fluid Hydration Crystalloid volume administer (ml): 400 Total IV fluid infused: 400 Progress Note Anesthesia document: Postop Eval 1 completed: Yes 02/16/25 0812 Date Sam Jones Signature: Date CC: Signed Normal [facility] MR/[id number] 02-16-2025 MR/POSTOPAN2 [facility] Medical Records Department [address] [place] [address] Anesthesia Postop Eval II 02/16/25 1033 MR#: [id number] Acct: [id number] Name: EREN MERCHANT Rep #: [id number] : 1960 64 From: Jhony Brown MD PCP: Dr. Gonzalo Day MD Status:[facility] Y Race: C Location: [place] Anesthesia Postop Eval I Sum Postop Eval Completion status Anesthesia document: Postop Eval 1 completed: Yes Anesthesia Postop Eval I Summary Anesthesia Postop Eval I Summary: Anesthesia Postop Eval I: Assessment Summary Airway patent Yes 02/16/25 08:12 [email or web address] Spontaneous unlabored Yes 02/16/25 08:12 [email or web address] respirations Mental status Awake 02/16/25 08:12 [email or web address] nausea No 02/16/25 08:12 [email or web address] Vomiting No 02/16/25 08:12 [email or web address] Anesthesia Postop Eval I: Fluid Summary Crystalloid volume administer 400 02/16/25 08:12 [email or web address] (ml) Colloids volume administered ( ml) Blood Product volume administered (ml) Total IV fluid infused 400 02/16/25 08:12 [email or web address] Anesthesia Postop Eval I: Summary Notes Anesthesia Complication No 02/16/25 08:12 [email or web address] Anesthesia Complication Comment: Post-operative progress note Anesthesia: Postop Eval II Evaluation Mental status: Awake Pain Level: 0 nausea: No Vomiting: No 02/16/25 1033 Date Jhony Jones Signature: Date CC: Signed Normal [facility] MR/PAT.[facility] 02-13-2025 MR/PAT.[facility] Medical Records Department [address] [place] [address] PAT - Anesthesia 02/13/25 0900 MR#: [id number] Acct: [id number] Name: EREN MERCHANT Rep #: [id number] : 1960 64 From: Estevan Crowder MD PCP: Dr. 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 When Was Last Pacemaker Check QUESTION #4 FULL TEXT: You/Your Family Experience fever (hyperthermia) with Anesthesia Last Oral Intake Last Oral intake: Last Oral Intake NPO since Meds taken in AM with sips of water? 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: PONV - tool 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 Female Yes 02/12/25 13:10 HX of Motion Sickness Yes 02/12/25 13:10 HX of N/V After Surgery No 02/12/25 13:10 Non-Smoker Yes 02/12/25 13:10 Duration of Surgery greater No 02/12/25 13:10 than 60 minutes Number of Risk Factors 3 02/12/25 13:10 PONV Score Moderate Risk 02/12/25 13:10 Height Weight Height Weight: Anesthesia: Height Weight Height 5 ft 5 in 12/22/24 12:21 Respiratory Assessment Respiratory Assessment - tool 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: Respiratory Tract Infection Hx - tool 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 Hx Respiratory Tract Infection No 02/12/25 13:10 STOP Sleep Apnea STOP Sleep Apnea - tool 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: STOP Sleep Apnea - tool 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 Hx Hypertension No: HYPOTENSION 02/12/25 13:10 Hx Sleep Apnea No 02/12/25 13:10 CPAP BIPAP Do you snore loudly (louder No 02/12/25 13:10 than talking or can be heard Do you often feel tired/ No 02/12/25 13:10 fatigued/ sleepy during daytime? Has anyone observed you stop No 02/12/25 13:10 breathing during sleep? STOP Results Negative 02/12/25 13:10 QUESTION #5 FULL TEXT : Do you snore loudly (louder than talking or can be heard through closed doors)? 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 Specify any problems FEVER 02/12/25 13:10 Hx of Preganancy in last 3 No 02/12/25 13:10 Months Nurse Filling Out Transfusion DSCHRIBER 02/12/25 13:10 Questions: Date: 02/12/25 02/12/25 13:10 Time: 13:12 02/12/25 13:10 Patient unable to answer at this time (ie. confused, unrespo /Reproduction History /Reproductive History - tool 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: /Reproductive Hx- tool 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 Hx Now Gestational Age (in weeks): EDC: Hx Hx Para Hx Section SAB No 02/12/25 13:10 [facility] Medical History (Updated 02/12/25 @ 13:23 by Lisette Hilton) Loss of hearing Walker as ambulation aid Low iron Injury of head and neck History of hiatal hernia Gastric reflux Back pain Parkinson's disease Orthostatic hypotension History [...] cholecalciferol (vitamin D3) 25 1,000 unit PO BI (more content not included)... Normal [facility] CT Chest WO contraston 01-29 IMPRESSION: No significant interval change in CT appearance of the chest. Again seen is reticulation, with traction bronchiectasis, in both lungs, not significantly changed in the interval. Suture lines are again seen within the right lung. There are stable tiny pulmonary nodules. No jonathan lymphadenopathy is seen within the chest. Fermenter Operator: JUAN Transcribe Date/Time: Jan 29 2025 10:16A Dictated by : AMANDA RAMON MD This examination was interpreted and the report reviewed and electronically signed by: AMANDA RAMON MD on Jan 29 2025 6:38PM [facility] DIVISION OF RADIOLOGY * * *Final Report* * * DATE OF EXAM: Jan 29 2025 10:02AM [facility] 0541 - CT CHEST WO IVCON [...] left upper quadrant. DIVISION OF RADIOLOGY Provider, [facility] - 01/29/2025 * * *Final Report* * * DATE OF EXAM: Jan 29 2025 10:02AM [facility] 0541 - CT CHEST WO IVCON [...] jonathan lymphadenopathy is seen within the chest. Fermenter [facility] Transcribe Date/Time: Jan 29 2025 10:16A Dictated by : AMANDA RAMON MD This examination was interpreted and the report reviewed and electronically signed by: AMANDA RAMON MD on Jan 29 2025 6:38PM EST [facility] Radiology Study observation (narrative) [facility] CT Chest WO contrastOrdered By: [facility] Provider on 01-29-2025 [facility] BASIC METABOLIC PANELon 01-15 Anion gap [Moles/Vol] 7 mmol/L Normal 3-13 [facility] Comment on above: Performed By: #### L AB15 ####Manager Shell: LACY OROSCO ([id number])[facility] ([facility])[address] [place] [address] Calcium [Mass/Vol] 8.9 mg/dL Normal 8.8-10.0 [facility] Comment on above: Performed By: #### L AB15 ####Manager Shell: ALCY OROSCO ([id number])[facility] ([facility])[address] [place] [address] Chloride [Moles/Vol] 111 mmol/L High 98-107 [facility] Comment on above: Performed By: #### L AB15 ####Manager Shell: LACY OROSCO ([phone])[facility])[address] [place] [address] CO2 [Moles/Vol] 18 mmol/L Low 23-31 [facility] Comment on above: Performed By: #### L [id number] ####Manager Shell: LACY OROSCO ([id number])[facility])[address] [place] [address] Creatinine [Mass/Vol] 1.63 mg/dL High 0.57-1.11 [facility] Comment on above: Performed By: #### L [id number] ####Manager Shell: LACY OROSCO ([id number])[address] GLOMERULAR FILTRATION RATE ML/MIN/1.73 SQ M.PREDICTED 34.6 mL/min/1.73m*2 Low >60.0 [facility] Comment on above: Result Comment: Calc ulation based on the Chronic Kidney Disease Epidemiology Collaboration (CKD-EPI) equation refit without adjustment for race Performed By: #### L [id number] ####Manager Shell: LACY OROSCO ([phone])[facility])[address] [place] [address] Glucose [Mass/Vol] 90 mg/dL Normal 82-115 [facility] Comment on above: Performed By: #### L [id number] ####Manager Shell: LACY OROSCO ([id number])[facility])[address] [place] [address] Potassium [Moles/Vol] 4.0 mmol/L Normal 3.5-5.1 [facility] Comment on above: Result Comment: [facility] potassium values may be up to 0.5 mmol/L lower than serum values. Performed By: #### L [id number] ####Manager Shell: LACY OROSCO ([phone])[facility])[address] [place] [address] Sodium [Moles/Vol] 136 mmol/L Normal 136-145 [facility] Comment on above: Performed By: #### L [id number] ####Manager Shell: LACY OROSCO ([phone])[facility])[address] [place] [address] Urea nitrogen [Mass/Vol] 30 mg/dL High 9-23 [facility] Comment on above: Performed By: #### L [id number] ####Manager Shell: LACY OROSCO ([id number])[facility] ([facility])[address] [place] [address] Basic metabolic 1998 panelon 01-26-2025 Anion gap [Moles/Vol] 7 mmol/L 3 - 13 mmol/L [facility] Calcium [Mass/Vol] 8.9 mg/dL 8.8 - 10. 0 mg/dL [facility] Chloride [Moles/Vol] 111 mmol/L High 98 - 10 7 mmol/L [facility] CO2 [Moles/Vol] 18 mmol/L Low 23 - 31 mmol/L [facility] Creatinine [Mass/Vol] 1.63 mg/dL High 0.57 - 1.11 mg/dL [facility] GFR/1.73 sq M.predicted (S/P/Bld) [Vol rate/Area] 34.6 mL/min Low - PINF [facility] Comment on above: Calculation based on the Chronic Kidney Disease Epidemiology Collaboration (CKD-EPI) equation refit without adjustment for race Glucose [Mass/Vol] 90 mg/dL 82 - 115 mg/dL [facility] Interpretation and review of laboratory results Abnormal [facility] Potassium [Moles/Vol] 4 mmol/L 3.5 - 5.1 mmol/L [facility] Comment on above: Plasma potassium ines ues may be up to 0.5 mmol/L lower than serum values. Sodium [Moles/Vol] 136 mmol/L 136 - 145 mmol/L [facility] Urea nitrogen [Mass/Vol] 30 mg/dL High 9 - 23 mg/dL [facility] CBC (HEMOGRAM)on 01-26-2025 Erythrocyte distribution width (RBC) [Ratio] 14.1 % Normal 11.5-15.0 [facility] Comment on above: Performed By: #### L [id number] #### Manager Shell: LACY OROSCO ([id number]) [facility] ([facility]) [address] [place] [address] Hematocrit (Bld) [Volume fraction] 29.2 % Low 35.0-47.0 [facility] Comment on above: Performed By: #### L [id number] #### Manager Shell: LACY OROSCO ([id number]) [facility] ([facility]) [address] [place] [address] Hemoglobin (Bld) [Mass/Vol] 9.2 g/dL Low 11.7-16.0 [facility] Comment on above: Performed By: #### L [id number] #### Manager Shell: LACY OROSCO ([id number]) [facility]) [address] [place] [address] MCH (RBC) [Entitic mass] 26.1 pg Normal 26.0-34.0 [facility] Comment on above: Performed By: #### L [id number] #### Manager Shell: LACY OROSCO ([id number]) [facility] ([facility]) [address] [place] [address] MCHC 31.5 % Normal 30.5-36.0 [facility] Comment on above: Performed By: #### L [id number] #### Manager Shell: LACY OROSCO ([id number]) [facility]) [address] [place] [address] MCV (RBC) [Entitic vol] 83.0 fL Normal 77.0-99.0 [facility] Comment on above: Performed By: #### L [id number] #### Manager Shell: LACY OROSCO ([id number]) [facility] ([facility]) [address] [place] [address] Platelet mean volume (Bld) [Entitic vol] 9.7 fL Normal 9.0-12.7 [facility] Comment on above: Performed By: #### L [id number] #### Manager Shell: LACY OROSCO ([id number]) [facility] ([facility]) [address] [place] [address] Platelets (Bld) [#/Vol] 369 10*3/uL Normal 140-440 [facility] Comment on above: Performed By: #### L [id number] #### Manager Shell: LCAY OROSCO ([id number]) [facility] ([facility]) [address] [place] [address] RBC (Bld) [#/Vol] 3.52 10*6/uL Low 3.80-5.20 [facility] Comment on above: Performed By: #### L [id number] #### Manager Shell: LACY OROSCO ([id number]) [facility]) [address] [place] [address] WBC (Bld) [#/Vol] 9.5 10*3/uL Normal 3.6-10.7 [facility] Comment on above: Performed By: #### L [id number] #### Manager Shell: LACY OROSCO ([id number]) [facility] ([facility]) [address] [place] [address] CBC panel Auto (Bld)on 01-26 Erythrocyte distribution width (RBC) [Ratio] 14.1 % 11.5 - 15.0 % [facility] Hematocrit (Bld) [Volume fraction] 29.2 % Low 35.0 - 47.0 % [facility] Hemoglobin (Bld) [Mass/Vol] 9.2 g/dL Low 11.7 - 16.0 g/dL [facility] Interpretation and review of laboratory results Abnormal [facility] MCH (RBC) [Entitic mass] 26.1 pg 26.0 - 34.0 pg [facility] MCHC (RBC) [Mass/Vol] 31.5 % 30.5 - 36.0 % [facility] MCV (RBC) [Entitic vol] 83 fL 77.0 - 99.0 fL [facility] Platelet mean volume (Bld) [Entitic vol] 9.7 fL 9.0 - 12.7 fL [facility] Platelets (Bld) [#/Vol] 369 10*3/uL 140 - 440 10*3/uL [facility] RBC (Bld) [#/Vol] 3.52 10*6/uL Low 3.80 - 5.20 10*6/uL [facility] WBC (Bld) [#/Vol] 9.5 10*3/uL 3.6 - 10.7 10*3/uL [facility] No Panel InformationOrdered By: Izabela Castillo on 01-26-2025 Case Report Surgical Pathology C ase: [id number] Authorizing Provider: Becca Joseph MD Collected: 01/24/2025 1537 Ordering Location: [facility] OR Received: 01/25/2025 0712 Pathologist: Izabela Castillo MD PhD Specimen: Uterus, ENDOMETRIAL BIOPSY [facility] [employer] Work Phone: Clinical Information a1dosJJrAPOajDIoVLY wMVxhbnN aMKVslYEkY7ItxkskPFamXP3rTY 0bcMdqnMFgmXNeNTXuJqOoj9weq 242uQBnq4cnYEKNTUvmMFOOGOc7 sHwgV00ha1W9UvacU0gyJMMuYYc lKYZsYOgkaAGnFKg9NLAvaGGkym OtLmPxAEWjyKEmzXN4ZUVcMW5em lieTMwmUWtvKAWyhtN0KITdyCQa N5WtNITpVZ4evnrdEJS0LDxoRLW uSMP9LrFbTIUcq9Qnuik3EuNslO Pxl8CfT4whvoFstOovgbGezw8kH GksgTBeYSZoJVYkRMWhl42yXWFa PpTfteDmYdSvhr5yxdTzG0sqspW aWgobfvGbbn6xRBfupHVulcJgyB XkF3elnJTOiNT1zJUsB4z6K0tvv Wh5FPXaCUAgwFk5JeCpAUncBRIp AFfruJHzNDMoOAzjRHQbVhFdV1F aBNMhE5ipLRkcUiyqZIMvszxfOO BOOTMuOSBbSUNELTEwLUNNXVxjZ YtcXRrxfEBgLKQrt7b8sh58LZnp RNN0jp27IEFpGpWzvoMuKvMsiq6 lapAgC4vnuqQzcUchogTrek0rZC clkLWaPEGdNLKlNXHpg34qXDKhM jCjeoHwDfNxob8lnzYxJ2h2UMK3 LIv3GXJfKhVgU2ktnIsgHPLub3p iSAMcNyDyXKlqEFuqcAd8SMVxaR LhAOcjpwSqmFPFa9B4BT0wgz9eS XVzYWwgYmxlZWRpbmcgLSBOOTUu MCBbSUNELTEwLUNNXVxjZWxsXGl mzIElVTCtn7zsAOVnCPAzjz9= [facility] [employer] Work Phone: Disclaimer r5xooKZxFJLtrWXxDoGx MDAwXGF bq7lqQZDuuOAvTkZgMcPhCqKdAl qkgLGxPRSwUpAew7lxq426bLYmo 1stRMSnQkA4iCLpSLPkX53hDVWY C354NGNeXGtze9son4PbAPNduJI gy9R2YILWEDnpXBLWAMl2sReuB5 2ha6K1JrygA0xoNOYdZROeJ2QoN D6oNZNbJim4IIT3AEW6HJUpGNIr N2KmDO1lVYYntBJeXDz9t6ewgUv xWSMnAMQ5g7atJEtpxhLeRV9ytn 0viLo2w5sqnhSoLIFlXZUeaRXIJ LOlI0ZlyTuuFk6swYo8hQwqGezi CXQ2Mhj9UX3awk59yeg0tVvmTZS ybjggWxK5IYtyUTKdktvhGJj9EF rxKPWmuVJ8WJDhuLNcN4DwGKPyJ V9lbcv4XYM5CArfFNLoIjH0YKDm kLZkXEHwdZhvHKnsc016BAL8IjQ gEP2yV5Mnd0K0mL7ikZSxQKTyfE UaMpEdRCRgcn6ncMRrRNhoz6PrE MK3vrL7jRYrbBYoSHDfGI41Sbbe m5HjSrfvSJE2IAFufxAtj8Kfv0j jYgDcquCcB9auX8FaHZGmRMJuJF MdDfJosxAgv0Bme2NdtWZpmEt2c 9bsGSXeLGQdwVblm1jfDEK3ZPHo D9Y0jNMlj7szEMqlBEOwsMU9eeG 1TBOumQAlS1YwtS3uUBTiDX4brt f8o1uvLAV7KPddOYMlJkO2diI1X HDodKAfTSQmbCsfFMzdl150GZE9 ScGdEUJlu6EvL2RyhNwvA10sbUl jO84nSVJvsBlqtI0mhLifxX7lKd BcZnMyNFxxbFxwbGFpblxmMVxmc nR4XEdmpgdbGEWvPGhcD8ukYhHe UTRmkGrlOJzrp7ZwEYDqFGEuTFR bOVaiZ0wlyW2gidygFAqhDPVpdV ojh4poXoKekHK5UI1ineLnYQEdk LsllcJ4izXleQgbeB9ehD3eyBja oW0gmYFlfFM2uyccHXruDXWcmXH dwAbbmjjmxIxroYijzoxrkS9sSI X3eQOiIHK3yQXqZSJfWBPtMSOrc B54ry8ksLVrlfGtY2BlZ2EsgVVa xZhxSqfdsNVtwSSkXk9fwWFsWE8 bPVShqZVpX5WeYT5zPZAtcibnCU SiDNtvIRJmVHAuRdUltrMdv1Qac W3mEUAiUZCsAH84kaWycdR3xCFo YWJvdmUgdGVzdHMgaXMgcmVndWx nxHLcBDQbTBNpYCOtOKe8oJGmc8 ZsQ7ultBPzxoUiI7TvlALfXVVNF T7lPMmcj9BdzGGlnVBjw0SwDOHf ZEAtfE5oQCEjAF1gZYIfXEpbCVV pctActu1xiaMuDPDbXGGiT2Hmtt covYsbikUkHIJqvl8roqFhKWL8X HRoZSBjbGluaWNhbCBsYWJvcmF0 g8HmVWPhv4UgQ4GbfGAxAWHvgRM hJPG0h1LikP7gIOkeaABoAIAnXK 5vdCBiZWVuIGNsZWFyZWQgYnkgd BxxGAWGXVNga9MjWH3iEIQxsXil FVPpnN8cs5CxHHGwx66sTPVZJXt uIFRoZSBGREEgaGFzIGRldGVybW luZWQgdGhhdCBzdWNoIGNsZWFyY N6iMFUcdlBwiWExj7LbbIGlayEy r5AtxgFyUTPuEEZ0YgInuCYwJCU xyuUSwXysyY9lxU7ud9EydU8hMU aszdOdpBVoWl1esGNkEQ4fAAQau kOmRysoJIDmCrHhQMHcZRIbt2X4 UN7wJUWtds7xpkhqfEKtkO7ujCX zraOwSL6mOW4fC6C8iNGxIUIxar Sgz2ddTMa2tCDvXGTxiIYysHAzR fpxPBH9JWPzDDC9zcWukvHrVRQo xGgbvSS1zMTvXCUzZZEjEDLfZM6 0N1Psi3IhX6toOG25DIVmCFIrYW YweoTkl9zjGHZcu9doPGTfpCUkM 1YkJMLgcRIprtkjHuNwJNA2KKIu JDJ8fZDlUIOkP1XdtSVlaQKymG0 8AV1tmQH9ND9rCCF7SXutyK6pYt YBiK22fm4kjLY7d3PdPK5aU4HhW MLit1X5ocGaUZHgCS8ayEIcCVJa IHZhbGlkYXRlZCBvbiBkZWNhbGN dYrvcGHR6oYOupVBkHxWZIQG5yJ NgWIYmg0UdWKVfCGWkkgYarhLnU WPdEQC5pHUyQCQcoDXkq64qD1g2 PO7ryFxnQBHqyCPjVNYax4UltHR uhPq4cAKmKbRxYLjdIZQsAXqtzK w6tLV9BE2oUECcH4KkH4weaQQtI JMzOQTmhXZjke3ldBVtgR== [employer] Work Phone: Gross Description h3dykBAfLGKytZQwYYOq MVxhbnN hBPPtyAOyC4YpbyirYShhGH8aII 5shNrjmNIlePZkRFZsBgFfh1brp 183vEJzx0vpCQZVMLsuWUZXUSz0 pIeoX53hh7K6LxxsC80uxBIoHPQ 2GJCaTRVysEIgZQMhYWK2NFVvnI YbN9hdFFOnSO5rhqzsLNjfJWgkQ PBtbKN2RNOlkIRiL4ClVURvFKob RMFpelp2ZeXbSt9voMRhtBxmYYj wYXJkXHBsYWluXGZzMjAgUmVjZW x8LAYeuN8lXm2lrRHylM9mgBZyF OxdQPXjBiLzUF3uSCCfwOJwQTEz e5VuoZEnIAVnNL81uTWkvFclOA3 lybL1ZHF2TB3oaMwmmnRnfzZrbi JfOISyh6O8FWOfyoHfnDYpgZElV WQngIxhBBL2jHZlPWFhKKDhxC5w BR93SAStd0PcfHNrVfNajUGuofX xD1qaSMkanFtkWiP1ulXwEExgKk J7DQIxLJSauL4qQOMiDNQdzJLpa C4iefYzrtSwnvRkmlKorZAneBZe aMP2IAIioA1enIjiAETxD7Jhl0D 0dGVzLiBccGFyfQ== [facility] Work Phone: Pathologist Interpretation Location [facility], [address] [place] [id number], CLIA: [id number]; Joint Commission: [facility] [place] [id number]; CAP: [id number] [facility] Work Phone: Pathology report final diagnosis Narrative j9zmfYToMCRuoTJvAHRyQHnzdzZ wCAQbzKJxN6McbqlwNGbhVJ2oNU 4rkKlluNHzaLPoRKLvMsGbf2iew 153vKXgz4tyKEZHODnoIGEWHSg9 eTrnM75un7J6DbajY28xvOVqWUE 0SEJaIHNvjLEnVAPdVZQ4CYHyvU YdN8bkBHGxLN6rggrfUCnjIMqzB GLpoFM8PFGosZDfR1XdJQFoKMkj AKFvomn2LsMaAq0nyXIbsKihGIv eROUnYZWlMRdaBFIlKfIwSN2VE7 1PBXOTFR3oAAGVD8CESTlfcZQvL DYaIXLyrALwN0OKUrFhIDYRWNCC PBVwQ8JGKUTRJN7OVYiDMNSDOBB IGSrNCG6CCRrYWwUWSBjVTCANIX VNLlxwYXJ9 [facility] Work Phone: [facility] Work Phone: BASIC METABOLIC PANELon 01-15 Anion gap [Moles/Vol] 8 mmol/L Normal 3-13 [facility] Comment on above: Performed By: #### L [id number] ####Manager Shell: LACY OROSCO ([id number])[facility] ([facility])[address] [place] [address] Calcium [Mass/Vol] 9.4 mg/dL Normal 8.8-10.0 [facility] Comment on above: Performed By: #### L [id number] ####Manager Shell: LACY OROSCO ([id number])[facility] [place] [address] Chloride [Moles/Vol] 110 mmol/L High 98-107 [facility] Comment on above: Performed By: #### L [id number] ####Manager Shell: LACY OROSCO ([id number])[facility] ([facility])[address] [place] [address] CO2 [Moles/Vol] 20 mmol/L Low 23-31 [facility] Comment on above: Performed By: #### L [id number] ####Manager Shell: LACY OROSCO ([id number])[facility] ([facility])[address] [place] [address] Creatinine [Mass/Vol] 1.46 mg/dL High 0.57-1.11 [facility] Comment on above: Performed By: #### L [id number] ####Manager Shell: LACY OROSCO ([phone])[facility] ([facility])[address] [place] [address] GLOMERULAR FILTRATION RATE ML/MIN/1.73 SQ M.PREDICTED 39.5 mL/min/1.73m*2 Low >60.0 [facility] Comment on above: Result Comment: Calc ulation based on the Chronic Kidney Disease Epidemiology Collaboration (CKD-EPI) equation refit without adjustment for race Performed By: #### L [id number] ####Manager Shell: LACY OROSCO ([id number])[facility] ([facility])[address] [place] [address] [place] Glucose [Mass/Vol] 131 mg/dL High 82-115 [facility] Comment on above: Performed By: #### L [id number] ####Manager Shell: LACY [id number])[facility] ([facility])[address] [place] [address] Potassium [Moles/Vol] 4.3 mmol/L Normal 3.5-5.1 [facility] Comment on above: Result Comment: [facility] potassium values may be up to 0.5 mmol/L lower than serum values. Performed By: #### L [id number] ####Manager Shell: LACY OROSCO ([id number])[facility] ([facility])[address] [place] [address] Sodium [Moles/Vol] 138 mmol/L Normal 136-145 [facility] Comment on above: Performed By: #### L [id number] ####Manager Shell: LACY OROSCO ([phone])[facility] ([facility])[address] [place] [address] Urea nitrogen [Mass/Vol] 26 mg/dL High 9-23 [facility] Comment on above: Performed By: #### L [id number] ####Manager Shell: LACY OROSCO ([id number])[facility] ([facility])[address] [place] [address] Bacteria identified Cx Nom ( U)Ordered By: Michelle Merrill on 01-25-2025 Interpretation and review of laboratory results Abnormal [facility] Bacteria identified Cx Nom ( U)on 01-25-2025 Interpretation and review of laboratory results Abnormal [facility] Basic metabolic 1998 panelon 01-25-2025 Anion gap [Moles/Vol] 8 mmol/L 3 - 13 mmol/L [facility] Calcium [Mass/Vol] 9.4 mg/dL 8.8 - 10. 0 mg/dL [facility] Chloride [Moles/Vol] 110 mmol/L High 98 - 10 7 mmol/L [facility] CO2 [Moles/Vol] 20 mmol/L Low 23 - 31 mmol/L [facility] Creatinine [Mass/Vol] 1.46 mg/dL High 0.57 - 1.11 mg/dL [facility] GFR/1.73 sq M.predicted (S/P/Bld) [Vol rate/Area] 39.5 mL/min Low - PINF [facility] Comment on above: Calculation based on the Chronic Kidney Disease Epidemiology Collaboration (CKD-EPI) equation refit without adjustment for race Glucose [Mass/Vol] 131 mg/dL High 82 - 115 mg/dL [facility] Interpretation and review of laboratory results Abnormal [facility] Potassium [Moles/Vol] 4.3 mmol/L 3.5 - 5.1 mmol/L [facility] Comment on above: Plasma potassium ines ues may be up to 0.5 mmol/L lower than serum values. Sodium [Moles/Vol] 138 mmol/L 136 - 145 mmol/L [facility] Urea nitrogen [Mass/Vol] 26 mg/dL High 9 - 23 mg/dL [facility] CBC (HEMOGRAM)on 01-25-2025 Erythrocyte distribution width (RBC) [Ratio] 13.6 % Normal 11.5-15.0 [facility] Comment on above: Performed By: #### L [id number] ####Manager Shell: LACY OROSCO ([id number])[facility])[address] [place] [address] Hematocrit (Bld) [Volume fraction] 31.2 % Low 35.0-47.0 [facility] Comment on above: Performed By: #### L [id number] ####Manager Shell: LACY OROSCO ([id number])[facility])[address] [place] [address] Hemoglobin (Bld) [Mass/Vol] 10.2 g/dL Low 11.7-16.0 [facility] Comment on above: Performed By: #### L [id number] ####Manager Shell: LACY OROSCO ([id number])[facility])[address] [place] [address] IPF 2 Normal [facility] Comment on above: Performed By: #### L [id number] ####Manager Shell: LACY OROSCO ([id number])[facility])[address] [place] [address] MCH (RBC) [Entitic mass] 26.6 pg Normal 26.0-34.0 [facility] Comment on above: Performed By: #### L [id number] ####Manager Shell: LACY OROSCO ([id number])[facility])[address] [place] [address] MCHC 32.7 % Normal 30.5-36.0 [facility] Comment on above: Performed By: #### L [id number] ####Manager Shell: LACY OROSCO ([id number])[facility])[address] [place] [address] MCV (RBC) [Entitic vol] 81.5 fL Normal 77.0-99.0 [facility] Comment on above: Performed By: #### L [id number] ####Manager Shell: LACY OROSCO ([id number])[facility])[address] [place] [address] Platelet mean volume (Bld) [Entitic vol] 10.3 fL Normal 9.0-12.7 [facility] Comment on above: Performed By: #### L [id number] ####Manager Shell: LACY OROSCO ([phone])[facility])[address] [place] [address] Platelets (Bld) [#/Vol] 353 10*3/uL Normal 140-440 [facility] Comment on above: Performed By: #### L [id number] ####Manager Shell: LACY OROSCO ([id number])[facility])[address] [place] [address] RBC (Bld) [#/Vol] 3.83 10*6/uL Normal 3.80-5.20 [facility] Comment on above: Performed By: #### L [id number] ####Manager Shell: LACY OROSCO ([id number])[facility])[address] [place] [address] WBC (Bld) [#/Vol] 7.1 10*3/uL Normal 3.6-10.7 [facility] Comment on above: Performed By: #### L [id number] ####Manager Shell: LACY OROSCO ([id number])[facility])[address] [place] [address] CBC panel Auto (Bld)Ordered By: Kristie Fowler on 01-25-2025 Erythrocyte distribution width (RBC) [Ratio] 13.6 % 11.5 - 15.0 % [facility] Hematocrit (Bld) [Volume fraction] 31.2 % Low 35.0 - 47.0 % [facility] Hemoglobin (Bld) [Mass/Vol] 10.2 g/dL Low 11.7 - 16.0 g/dL [facility] Interpretation and review of laboratory results Abnormal [facility] IPF 2 [facility] MCH (RBC) [Entitic mass] 26.6 pg 26.0 - 34.0 pg [facility] MCHC (RBC) [Mass/Vol] 32.7 % 30.5 - 36.0 % [facility] MCV (RBC) [Entitic vol] 81.5 fL 77.0 - 99.0 fL [facility] Platelet mean volume (Bld) [Entitic vol] 10.3 fL 9.0 - 12.7 fL [facility] Platelets (Bld) [#/Vol] 353 10*3/uL 140 - 440 10*3/uL [facility] RBC (Bld) [#/Vol] 3.83 10*6/uL 3.80 - 5.20 10*6/uL [facility] WBC (Bld) [#/Vol] 7.1 10*3/uL 3.6 - 10.7 10*3/uL [facility] Consulton 01-25-2025 Consult ------- Attestation signed by [...] and low glucose diet. Pepito Steve MD [facility] [phone] [facility] Nephrology Consultation Note Reason for consultation: CKD 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: Vaginal bleeding History of Presenting Illness Patient is a 64 y.o. female with PMHx noted below who presented to [facility] ED on 01/22/2025 as transfer from [place] [facility] with chief complaint listed above. Per report at [place] ED pt found to be hypotensive and tachycardic. Hgb dropped from baseline ~ 12 to 8. Pt given 1 uPRBC, 2nd unit started but had to be stopped d/t fever. TVUS showed fluid filled endometrium with endometrial thickness of 12.[address] A/P with thickened bladder wall and heterogenous debris. Patient transferred to [facility] ED for [employer] evaluation. Patient admitted for observation to [employer] service given acute blood loss anemia requiring [...] (mL): 300 mL Dowd: [REMOVED] Urethral Catheter Dlyzqeyn-sem-Tsjabw (mL): 1700 mL General: Comfortable appearing, cooperative [...] Nom (U) >100,000 CFU/mL Escherichia coli Abnormal [facility] Comment on above: For identification a nd/or sensitivity, refer to culture collected on: 01/22/2025 at 20:27 ([id number]) Bacteria identified Cx Nom (U) 50,000-90,000 CFU/mL Streptococcus agalactiae (Group B) Abnormal [facility] Comment on above: Susceptibility testi ng not performed. Beta-hemolytic streptococci are universally susceptible to beta-lactam antibiotics. If patient is beta-lactam allergic, providers should call the [facility] ([phone]) within 3 days to request susceptibility testing. Laboratory - Microbiology an d Antimicrobial susceptibilityon 01-25-2025 Bacteria identified Cx Nom (U) >100,000 CFU/mL Escherichia coli Abnormal [facility] Bacteria identified Cx Nom (U) >100,000 CFU/mL Streptococcus agalactiae (Group B) Abnormal [facility] Comment on above: Susceptibility testi ng not performed. Beta-hemolytic streptococci are universally susceptible to beta-lactam antibiotics. If patient is beta-lactam allergic, providers should call the [facility] ([phone]) within 3 days to request susceptibility testing. BASIC METABOLIC PANELon 01-15 Anion gap [Moles/Vol] 5 mmol/L Normal 3-13 [facility] Comment on above: Performed By: #### L AB15, LAB68, LAB67, LAB69, [id number] ####Manager Shell: LACY OROSCO ([id number])[facility])[address] [place] [address] Calcium [Mass/Vol] 8.7 mg/dL Low 8.8-10.0 [facility] Comment on above: Performed By: #### L AB15, LAB68, LAB67, LAB69, [id number] ####Manager Shell: LACY OROSCO ([id number])[facility] ([facility])[address] [place] [address] Chloride [Moles/Vol] 109 mmol/L High 98-107 [facility] Comment on above: Performed By: #### L AB15, LAB68, LAB67, LAB69, [id number] ####Manager Shell: LACY OROSCO ([id number])[facility])[address] [place] [address] CO2 [Moles/Vol] 21 mmol/L Low 23-31 [facility] Comment on above: Performed By: #### L AB15, LAB68, LAB67, LAB69, [id number] ####Manager Shell: LACY OROSCO ([id number])[facility])[address] [place] [address] Creatinine [Mass/Vol] 1.37 mg/dL High 0.57-1.11 [facility] Comment on above: Performed By: #### L AB15, LAB68, LAB67, LAB69, [id number] ####Manager Shell: LACY OROSCO ([id number])[facility])[address] [place] [address] GLOMERULAR FILTRATION RATE ML/MIN/1.73 SQ M.PREDICTED 42.7 mL/min/1.73m*2 Low >60.0 [facility] Comment on above: Result Comment: Calc ulation based on the Chronic Kidney Disease Epidemiology Collaboration (CKD-EPI) equation refit without adjustment for race Performed By: #### L AB15, LAB68, LAB67, LAB69, [id number] ####Manager Shell: LACY OROSCO ([id number])[facility])[address] [place] [address] Glucose [Mass/Vol] 94 mg/dL Normal 82-115 [facility] Comment on above: Performed By: #### L AB15, LAB68, LAB67, LAB69, [id number] ####Manager Shell: LACY OROSCO ([id number])[facility] ([facility])[address] [place] [address] Potassium [Moles/Vol] 3.5 mmol/L Normal 3.5-5.1 [facility] Comment on above: Result Comment: [facility] potassium values may be up to 0.5 mmol/L lower than serum values. Performed By: #### L AB15, LAB68, LAB67, LAB69, [id number] ####Manager Shell: LACY OROSCO ([id number])[facility] ([facility])[address] [place] [address] Sodium [Moles/Vol] 135 mmol/L Low 136-145 [facility] Comment on above: Performed By: #### L AB15, LAB68, LAB67, LAB69, [id number] ####Manager Shell: LACY OROSCO ([id number])[facility] ([facility])[address] [place] [address] Urea nitrogen [Mass/Vol] 19 mg/dL Normal 9-23 [facility] Comment on above: Performed By: #### L AB15, LAB68, LAB67, LAB69, [id number] ####Manager Shell: LACY OROSCO ([id number])[facility] ([facility])[address] [place] [address] Basic metabolic 1998 panelon 01-24-2025 Anion gap [Moles/Vol] 5 mmol/L 3 - 13 mmol/L [facility] Calcium [Mass/Vol] 8.7 mg/dL Low 8.8 - 10. 0 mg/dL [facility] Chloride [Moles/Vol] 109 mmol/L High 98 - 10 7 mmol/L [facility] CO2 [Moles/Vol] 21 mmol/L Low 23 - 31 mmol/L [facility] Creatinine [Mass/Vol] 1.37 mg/dL High 0.57 - 1.11 mg/dL [facility] GFR/1.73 sq M.predicted (S/P/Bld) [Vol rate/Area] 42.7 mL/min Low - PINF [facility] Comment on above: Calculation based on the Chronic Kidney Disease Epidemiology Collaboration (CKD-EPI) equation refit without adjustment for race Glucose [Mass/Vol] 94 mg/dL 82 - 115 mg/dL [facility] Potassium [Moles/Vol] 3.5 mmol/L 3.5 - 5.1 mmol/L [facility] Comment on above: Plasma potassium ines ues may be up to 0.5 mmol/L lower than serum values. Sodium [Moles/Vol] 135 mmol/L Low 136 - 145 mmol/L [facility] Urea nitrogen [Mass/Vol] 19 mg/dL 9 - 23 mg/dL [facility] CBC (HEMOGRAM)on 01-24-2025 Erythrocyte distribution width (RBC) [Ratio] 13.9 % Normal 11.5-15.0 [facility] Comment on above: Performed By: #### Glory AB294, [id number] ####Manager Shell: LACY OROSCO ([id number])[address] Hematocrit (Bld) [Volume fraction] 27.0 % Low 35.0-47.0 [facility] Comment on above: Performed By: #### Glory AB294, [id number] ####Manager Shell: LACY OROSCO ([id number])[address] Hemoglobin (Bld) [Mass/Vol] 8.9 g/dL Low 11.7-16.0 [facility] Comment on above: Performed By: #### L AB294, [id number] ####Manager Shell: LACY OROSCO ([id number])[address] MCH (RBC) [Entitic mass] 27.1 pg Normal 26.0-34.0 [facility] Comment on above: Performed By: #### L AB294, [id number] ####Manager Shell: LACY OROSCO ([id number])[facility] ([facility])[address] [place] [address] MCHC 33.0 % Normal 30.5-36.0 [facility] Comment on above: Performed By: #### L AB294, [id number] ####Manager Shell: LACY OROSCO ([id number])[facility] ([facility])[address] [place] [address] MCV (RBC) [Entitic vol] 82.1 fL Normal 77.0-99.0 [facility] Comment on above: Performed By: #### L AB294, [id number] ####Manager Shell: LACY OROSCO ([id number])[facility])[address] [place] [address] Platelet mean volume (Bld) [Entitic vol] 10.8 fL Normal 9.0-12.7 [facility] Comment on above: Performed By: #### Glory AB294, [id number] ####Manager Shell: LACY OROSCO ([id number])[facility] ([facility])[address] [place] [address] Platelets (Bld) [#/Vol] 245 10*3/uL Normal 140-440 [facility] Comment on above: Performed By: #### L AB294, [id number] ####Manager Shell: LACY OROSCO ([id number])[facility] ([facility])[address] [place] [address] RBC (Bld) [#/Vol] 3.29 10*6/uL Low 3.80-5.20 [facility] Comment on above: Performed By: #### L AB294, [id number] ####Manager Shell: LACY OROSCO ([id number])[facility])[address] [place] [address] WBC (Bld) [#/Vol] 10.2 10*3/uL Normal 3.6-10.7 [facility] Comment on above: Performed By: #### L AB294, [id number] ####Manager Shell: LACY OROSCO ([id number])[facility])[address] [place] [address] CBC panel Auto (Bld)on 01-24 Erythrocyte distribution width (RBC) [Ratio] 13.9 % 11.5 - 15.0 % [facility] Hematocrit (Bld) [Volume fraction] 27 % Low 35.0 - 47.0 % [facility] Hemoglobin (Bld) [Mass/Vol] 8.9 g/dL Low 11.7 - 16.0 g/dL [facility] Interpretation and review of laboratory results Abnormal [facility] MCH (RBC) [Entitic mass] 27.1 pg 26.0 - 34.0 pg [facility] MCHC (RBC) [Mass/Vol] 33 % 30.5 - 36.0 % [facility] MCV (RBC) [Entitic vol] 82.1 fL 77.0 - 99.0 fL [facility] Platelet mean volume (Bld) [Entitic vol] 10.8 fL 9.0 - 12.7 fL [facility] Platelets (Bld) [#/Vol] 245 10*3/uL 140 - 440 10*3/uL [facility] RBC (Bld) [#/Vol] 3.29 10*6/uL Low 3.80 - 5.20 10*6/uL [facility] WBC (Bld) [#/Vol] 10.2 10*3/uL 3.6 - 10.7 10*3/uL [facility] FERRITINon 01-24-2025 Ferritin [Mass/Vol] 145 ng/mL Normal 5-204 [facility] Comment on above: Result Comment: RAIMUNDO Salcedo COMMENTS: Ferritin levels below 10 ng/mL have been reported as indicative of iron deficiency anemia. Performed By: #### L AB15, LAB68, LAB67, LAB69, [id number] ####Manager Shell: LACY OROSCO ([id number])[facility] ([facility])[address] [place] [address] FOLATEon 01-24-2025 FOLATE RESULT 13.5 ng/mL Normal 7.0-31.4 [facility] Comment on above: Performed By: #### L AB15, LAB68, LAB67, LAB69, [id number] ####Manager Shell: LACY OROSCO ([phone])[facility] ([facility])[address] [place] [address] [place] Ferritin [Mass/Vol]on 2024 Ferritin levels belo w 10 ng/mL have been reported as indicative of iron deficiency anemia. [facility] IRON AND TIBCon 01-24-2025 IRON BINDING CAPACITY 159 ug/dL Low 250-450 [facility] Comment on above: Performed By: #### L AB829 ####Manager Shell: LACY OROSCO ([id number])[facility] [place] [address] IRON SATURATION 8.2 % Low 20.0-50.0 [facility] Comment on above: Performed By: #### L AB829 ####Manager Shell: LACY OROSCO ([id number])[facility] ([facility])[address] [place] [address] IRON, TOTAL 13 ug/dL Low 50-170 [facility] Comment on above: Performed By: #### L AB829 ####Manager Shell: LACY OROSCO ([id number])[facility] [place] [address] Iron and Iron binding capaci ty panelon 01-24-2025 Interpretation and review of laboratory results Abnormal [facility] Iron [Mass/Vol] 13 ug/dL Low 50 - 170 ug/dL [facility] Iron binding capacity [Mass/Vol] 159 ug/dL Low 250 - 450 ug/dL [facility] Iron saturation [Mass fraction] 8.2 % Low 20.0 - 50.0 % [facility] Laboratory - Chemistry and C hemistry - challengeon 01-24-2025 Magnesium [Mass/Vol] 1.9 mg/dL 1.6 - 2 .6 mg/dL [facility] Cobalamin (Vitamin B12) [Mass/Vol] 868 pg/mL High 213 - 816 pg/mL [facility] Ferritin [Mass/Vol] 145 ng/mL 5 - 204 ng/mL [facility] Folate [Mass/Vol] 13.5 ng/mL 7.0 - 31.4 ng/mL [facility] MAGNESIUMon 01-24-2025 Magnesium [Mass/Vol] 1.9 mg/dL Normal 1.6-2.6 [facility] Comment on above: Result Comment: RAIMUNDO R COMMENTS: Higher values can be expected in females during menses. Performed By: #### L AB15, LAB68, LAB67, LAB69, [id number] ####Manager Shell: LACY OROSCO ([id number])[facility] ([facility])[address] [place] [address] Magnesium [Mass/Vol]on 01-24 Interpretation and review of laboratory results Normal [facility] Higher values can be expected in females during menses. [facility] No Panel Informationon 01-24 There is no interpre tation needed for this exam. IMAGING Interpretation and review of laboratory results Normal [facility] Interpretation and review of laboratory results Abnormal [facility] Op Noteon 01-24-2025 Op Note Date: 01/24/2025 Loca tion: [facility] OR Name: Eren Merchant, : 1960, Diagnosis Pre-op Diagnosis * Vaginal bleeding [N93.9] * Post-menopausal bleeding [N95.0] Post-op Diagnosis * Vaginal bleeding [N93.9] * Post-menopausal bleeding [N95.0] Procedures HYSTEROSCOPY, CYSTOSCOPY 70081 - [place] HYSTEROSCOPY DIAGNOSTIC SEPARATE PROCEDURE Surgeons * Becca [...] Tissue TISSUE EXAM Becca Joseph MD 01/24/25 5397 No Routine Description: ENDOMETRIAL BIOPSY Staff: Spent Grain Dryer: Jay Rothman RN Scrub Person: Kane Valverde [...] I: Clean Blood Products: None Prophylactic Antibiotics: [facility] Op Note Javier Rosenberg 02/01/2025 at 6:00 [...] tumor stone foreign body or fistula. 8 [place] cone-tip catheter was used retrograde pyelograms were performed showing dilation of the ureter from the bladder to the kidney but no obvious filling defect or mass. The bladder was drained the case was turned over to VENEER SAMPLE MAKER for hysteroscopy. Patient will follow-up with Dr. Yang and urogynecology for further evaluation of her neurogenic bladder. Katherine Bowen MD 02/01/25 6:00 PM [facility] Progress Noteon 01-24-2025 Progress Note Report called to Mary Jane roldan RN on H5 [facility] Progress Note Spoke with patient's Son Shelton with update via phone [facility] Progress Note Vancomycin therapy h as been discontinued by Dr. Strange on 01/24/25. Thank you for the consult. Pharmacy signing off for vancomycin dosing. Donna Rivera, [facility] Date: 01/24/25 Time: 12:38 PM [facility] Progress Note Nutrition rescreen completed. Chart reviewed. Patient to be monitored and followed by the diet park maintenance technician. Normal [facility] RETICULOCYTESon 01-24-2025 Reticulocytes/100 RBC (Bld) 1.16 % Normal [facility] Comment on above: Result Comment: [place] < 5% Adults 0.4 - 2.0% Performed By: #### L AB294, [id number] ####Manager Shell: LACY OROSCO ([id number])[address] Reticulocytes panel (Bld)Ord ered By: Deann Abebe on 01-24-2025 Reticulocytes/100 RBC (Bld) 1.16 % [facility] Comment on above: [place] < 5% Adults 0.4 - 2.0% [facility] VITAMIN B12on 01-24-2025 Cobalamin (Vitamin B12) [Mass/Vol] 868 pg/mL High 213-816 [facility] Comment on above: Performed By: #### L AB15, LAB68, LAB67, LAB69, [id number] ####Manager Shell: LACY OROSCO ([id number])[facility] ([facility])[address] [place] [address] [id number] 01-23-2025 [id number] [facility] to take over a s attending at this time as infection is primary reason for continued admission. Normal [facility] BASIC METABOLIC PANELon Anion gap [Moles/Vol] 5 mmol/L Normal 3-13 [facility] Comment on above: Performed By: #### L AB15, [id number], [id number] ####Manager Shell: LACY OROSCO ([id number])[facility] ([facility])[address] [place] [address] Calcium [Mass/Vol] 8.5 mg/dL Low 8.8-10.0 [facility] Comment on above: Performed By: #### Glory AB15, [id number], [id number] ####Manager Shell: LACY OROSCO ([id number])[facility] [place] [address] Chloride [Moles/Vol] 105 mmol/L Normal 98-107 [facility] Comment on above: Performed By: #### Glory AB15, [id number], [id number] ####Manager Shell: LACY OROSCO ([phone])[facility] [place] [address] CO2 [Moles/Vol] 22 mmol/L Low 23-31 [facility] Comment on above: Performed By: #### Glory AB15, [id number], [id number] ####Manager Shell: LACY OROSCO ([id number])[facility])[address] [place] [address] Creatinine [Mass/Vol] 1.40 mg/dL High 0.57-1.11 [facility] Comment on above: Performed By: #### Glory AB15, [id number], [id number] ####Manager Shell: LACY OROSCO ([id number])[facility])[address] [place] [address] [place] GLOMERULAR FILTRATION RATE ML/MIN/1.73 SQ M.PREDICTED 41.6 mL/min/1.73m*2 Low >60.0 [facility] Comment on above: Result Comment: Calc ulation based on the Chronic Kidney Disease Epidemiology Collaboration (CKD-EPI) equation refit without adjustment for race Performed By: #### L AB15, [id number], [id number] ####Manager Shell: LACY OROSCO ([id number])[facility])[address] [place] [address] Glucose [Mass/Vol] 99 mg/dL Normal 82-115 [facility] Comment on above: Performed By: #### L AB15, [id number], [id number] ####Manager Shell: LACY OROSCO ([id number])[facility])[address] [place] [address] Potassium [Moles/Vol] 3.0 mmol/L Low 3.5-5.1 [facility] Comment on above: Result Comment: [facility] potassium values may be up to 0.5 mmol/L lower than serum values. Performed By: #### L AB15, [id number], [id number] ####Manager Shell: LACY OROSCO ([id number])[facility] ([facility])[address] [place] [address] Sodium [Moles/Vol] 132 mmol/L Low 136-145 [facility] Comment on above: Performed By: #### Glory AB15, [id number], [id number] ####Manager Shell: LACY OROSCO ([id number])[facility] ([facility])[address] [place] [address] Urea nitrogen [Mass/Vol] 20 mg/dL Normal 9-23 [facility] Comment on above: Performed By: #### L AB15, [id number], [id number] ####Manager Shell: LACY OROSCO ([id number])[facility])[address] [place] [address] Basic metabolic 1998 panelon 01-23-2025 Anion gap [Moles/Vol] 5 mmol/L 3 - 13 mmol/L [facility] Calcium [Mass/Vol] 8.5 mg/dL Low 8.8 - 10. 0 mg/dL [facility] Chloride [Moles/Vol] 105 mmol/L 98 - 10 7 mmol/L [facility] CO2 [Moles/Vol] 22 mmol/L Low 23 - 31 mmol/L [facility] Creatinine [Mass/Vol] 1.4 mg/dL High 0.57 - 1.11 mg/dL [facility] GFR/1.73 sq M.predicted (S/P/Bld) [Vol rate/Area] 41.6 mL/min Low - PINF [facility] Comment on above: Calculation based on the Chronic Kidney Disease Epidemiology Collaboration (CKD-EPI) equation refit without adjustment for race Glucose [Mass/Vol] 99 mg/dL 82 - 115 mg/dL [facility] Interpretation and review of laboratory results Abnormal [facility] Potassium [Moles/Vol] 3 mmol/L Low 3.5 - 5.1 mmol/L [facility] Comment on above: Plasma potassium ines ues may be up to 0.5 mmol/L lower than serum values. Sodium [Moles/Vol] 132 mmol/L Low 136 - 145 mmol/L [facility] Urea nitrogen [Mass/Vol] 20 mg/dL 9 - 23 mg/dL [facility] CBC (HEMOGRAM)on 01-23-2025 Erythrocyte distribution width (RBC) [Ratio] 14.0 % Normal 11.5-15.0 [facility] Comment on above: Performed By: #### L AB294 ####Manager Shell: LACY OROSCO ([id number])[address] Hematocrit (Bld) [Volume fraction] 26.3 % Low 35.0-47.0 [facility] Comment on above: Performed By: #### L AB294 ####Manager Shell: LACY OROSCO ([phone])[address] Hemoglobin (Bld) [Mass/Vol] 8.6 g/dL Low 11.7-16.0 [facility] Comment on above: Performed By: #### L AB294 ####Manager Shell: LACY OROSCO ([id number])[facility])[address] [place] [address] MCH (RBC) [Entitic mass] 26.4 pg Normal 26.0-34.0 [facility] Comment on above: Performed By: #### L AB294 ####Manager Shell: LACY OROSCO ([id number])[facility])[address] [place] [address] MCHC 32.7 % Normal 30.5-36.0 [facility] Comment on above: Performed By: #### L AB294 ####Manager Shell: LACY OROSCO ([id number])[facility])[address] [place] [address] MCV (RBC) [Entitic vol] 80.7 fL Normal 77.0-99.0 [facility] Comment on above: Performed By: #### L AB294 ####Manager Shell: LACY OROSCO ([id number])[facility] ([facility])[address] [place] [address] Platelet mean volume (Bld) [Entitic vol] 10.5 fL Normal 9.0-12.7 [facility] Comment on above: Performed By: #### L AB294 ####Manager Shell: LACY OROSCO ([id number])[facility] ([facility])[address] [place] [address] Platelets (Bld) [#/Vol] 227 10*3/uL Normal 140-440 [facility] Comment on above: Performed By: #### L AB294 ####Manager Shell: LACY OROSCO ([id number])[facility])[address] [place] [address] RBC (Bld) [#/Vol] 3.26 10*6/uL Low 3.80-5.20 [facility] Comment on above: Performed By: #### L AB294 ####Manager Shell: LACY OROSCO ([phone])[facility])[address] [place] [address] WBC (Bld) [#/Vol] 14.3 10*3/uL High 3.6-10.7 [facility] Comment on above: Performed By: #### L AB294 ####Manager Shell: LACY OROSCO ([id number])[facility])[address] [place] [address] CBC panel Auto (Bld)on 01-23 Erythrocyte distribution width (RBC) [Ratio] 14 % 11.5 - 15.0 % [facility] Hematocrit (Bld) [Volume fraction] 26.3 % Low 35.0 - 47.0 % [facility] Hemoglobin (Bld) [Mass/Vol] 8.6 g/dL Low 11.7 - 16.0 g/dL [facility] Interpretation and review of laboratory results Abnormal [facility] MCH (RBC) [Entitic mass] 26.4 pg 26.0 - 34.0 pg [facility] MCHC (RBC) [Mass/Vol] 32.7 % 30.5 - 36.0 % [facility] MCV (RBC) [Entitic vol] 80.7 fL 77.0 - 99.0 fL [facility] Platelet mean volume (Bld) [Entitic vol] 10.5 fL 9.0 - 12.7 fL [facility] Platelets (Bld) [#/Vol] 227 10*3/uL 140 - 440 10*3/uL [facility] RBC (Bld) [#/Vol] 3.26 10*6/uL Low 3.80 - 5.20 10*6/uL [facility] WBC (Bld) [#/Vol] 14.3 10*3/uL High 3.6 - 10.7 10*3/uL [facility] ECG 12-LEADon 01-23-2025 ECG 12-LEAD IMPRESSION: Sinus rhythm Ventricular premature complex Borderline left axis deviation Low voltage, precordial leads Borderline T abnormalities, diffuse leads Electronically Signed On 01-23-2025 02:30:53 EDT by Luis Armando Baugh Normal [facility] Laboratory - Chemistry and C hemistry - challengeon 01-23-2025 Procalcitonin [Mass/Vol] 2.93 ng/mL High NINF - 0.07 ng/mL [facility] Magnesium [Mass/Vol] 1.8 mg/dL 1.6 - 2 .6 mg/dL [facility] Laboratory - Drug toxicology on 01-23-2025 Vancomycin trough [Mass/Vol] 17.6 ug/mL [facility] MAGNESIUMon 01-23-2025 Magnesium [Mass/Vol] 1.8 mg/dL Normal 1.6-2.6 [facility] Comment on above: Result Comment: RAIMUNDO Salcedo COMMENTS: Higher values can be expected in females during menses. Performed By: #### L AB15, [id number], [id number] ####Manager Shell: LACY OROSCO ([id number])[facility] ([facility] [place] [address] MRSA DNA COLTEN+probe Ql (Nose) on 01-23-2025 Interpretation and review of laboratory results Normal [facility] mecA gene Not detected Not Detected [facility] Staphylococcus aureus Not detected Not Detected [facility] No Staphylococcus au reus detected. Negative nasal MRSA PCR has a high negative predictive value for MRSA pneumonia. Consider stopping Vancomycin if no other clinical indication. Contact Antimicrobial Stewardship for further recommendations. Staphylococcus aureus nasal screen by real-time PCR. This test was modified and its performance characteristics determined by [facility]. The U. S. Food and Drug Administration has not approved or cleared this test; however, FDA clearance or approval is not currently required for clinical use. The results are not intended to be used as the sole means for clinical diagnosis or patient management decisions. [employer] Magnesium [Mass/Vol]on 01-23 Interpretation and review of laboratory results Normal [facility] Higher values can be expected in females during menses. [employer] No Panel InformationOrdered By: Luis Armando Baugh on 01-23-2025 P [place] -1 degrees Curbside Phone: LA Interval 142 ms Curbside Phone: QRS [place] -25 degrees Curbside Phone: QRSD Interval 88 ms Curbside Phone: QT Interval 0 ms Curbside Phone: QTC Interval 0 ms Curbside Phone: T Wave [place] -49 degrees Curbside Phone: Curbside Phone: No Panel Informationon 01-23 Sinus rhythm Ventricular premature complex Borderline left axis deviation Low voltage, precordial leads Borderline T abnormalities, diffuse leads Electronically Signed On 01-23-2025 02:30:53 EDT by Luis Armando Luis Armando Wyman MD - 01/23/2025 IMPRESSION: Sinus rhythm Ventricular premature complex Borderline left axis deviation Low voltage, precordial leads Borderline T abnormalities, diffuse leads Electronically Signed On 01-23-2025 02:30:53 EDT by Luis Armando Jimenezhta [facility] PROCALCITONIN TESTon 025 PROCALCITONIN 2.93 ng/mL High <0.07 [facility] Comment on above: Result Comment: RAIMUNDO Salcedo COMMENTS: PCT <0.50 = Low risk of severe sepsis and/or septic shock. PCT >2.00 = High risk of severe sepsis and/or septic shock. Performed By: #### L AB15, [id number], [id number] ####Manager Shell: LACY OROSCO ([id number])[facility] ([address] Procalcitonin [Mass/Vol]on 0 01-23-2025 Interpretation and review of laboratory results Abnormal [facility] PCT <0.50 = Low risk of severe sepsis and/or septic shock. PCT >2.00 = High risk of severe sepsis and/or septic shock. [facility] Progress Noteon 01-23-2025 Progress Note ------- Attestation [...] time. Will make npo after MN tonight [employer]ERN[employer]OY[employer] Progress Note Date: 01/23/2025 Time: 5:21 AM [...] Intake/Output: Current Shift: I/O this shift: In: 1740.7 [IV Piggyback:1740.7] Out: 525 [Urine:525] Physical Exam: Gen: NAD, [...] range: 5-10 Performed By: #### L AB39 ####Manager Shell: LACY OROSCO ([id number])[facility] ([facility] Vancomycin trough [Mass/Vol] on 01-23-2025 Toxicity is seen at concentrations >80-100 ug/mL Therapeutic (Peak) range: 20-40 Therapeutic (Trough) range: 5-10 [facility] Vital signsOrdered By: Valerie Baugh on 01-23-2025 Heart rate 96 /min bpm [facility] [employer] Work Phone: BASIC METABOLIC PANELon Anion gap [Moles/Vol] 8 mmol/L Normal 3-13 [facility] Comment on above: Performed By: #### L AB15 ####Manager Shell: LACY OROSCO ([id number])[facility] ([facility] [place] [address] Calcium [Mass/Vol] 8.4 mg/dL Low 8.8-10.0 [facility] Comment on above: Performed By: #### L AB15 ####Manager Shell: LACY OROSCO ([id number])[facility] [facility] [place] [address] Chloride [Moles/Vol] 106 mmol/L Normal 98-107 [facility] Comment on above: Performed By: #### L [id number] ####Manager Shell: LACY OROSCO ([id number])[facility] ([facility])[address] [place] [address] CO2 [Moles/Vol] 21 mmol/L Low 23-31 [facility] Comment on above: Performed By: #### L [id number] ####Manager Shell: LACY OROSCO ([id number])[facility] ([facility])[address] [place] [address] Creatinine [Mass/Vol] 1.83 mg/dL High 0.57-1.11 [facility] Comment on above: Performed By: #### L [id number] ####Manager Shell: LACY OROSCO ([id number])[facility] ([facility])[address] [place] [address] GLOMERULAR FILTRATION RATE ML/MIN/1.73 SQ M.PREDICTED 30.1 mL/min/1.73m*2 Low >60.0 [facility] Comment on above: Result Comment: Calc ulation based on the Chronic Kidney Disease Epidemiology Collaboration (CKD-EPI) equation refit without adjustment for race Performed By: #### L [id number] ####Manager Shell: LACY OROSCO ([id number])[facility] ([facility])[address] [place] [address] Glucose [Mass/Vol] 119 mg/dL High 82-115 [facility] Comment on above: Performed By: #### L [id number] ####Manager Shell: LACY OROSCO ([id number])[facility])[address] [place] [address] Potassium [Moles/Vol] 3.6 mmol/L Normal 3.5-5.1 [facility] Comment on above: Result Comment: [facility] potassium values may be up to 0.5 mmol/L lower than serum values. Performed By: #### L [id number] ####Manager Shell: LACY OROSCO ([phone])[facility] ([facility])[address] [place] [address] Sodium [Moles/Vol] 135 mmol/L Low 136-145 [facility] Comment on above: Performed By: #### L [id number] ####Manager Shell: LACY OROSCO ([phone])[facility])[address] [place] [address] Urea nitrogen [Mass/Vol] 28 mg/dL High 9-23 [facility] Comment on above: Performed By: #### L [id number] ####Manager Shell: LACY OROSCO ([phone])[facility])[address] [place] [address] BLOOD CULTUREon 01-22-2025 Bacteria identified Cx Nom (Bld) BLOOD CULTURE Reference No growth at 5 days ORDER COMMENTS: Blood Collection Site: Right Antecubital [ S = SUSCEPTIBLE R = RESISTANT I = INTERMEDIATE S-DD = Susceptible-dose dependent NS = Non-susceptible NO = No Interpretation ] [facility] Comment on above: Performed By: #### L [id number] #### Manager Shell: LACY OROSCO ([id number]) [facility] ([facility]) [address] [place] [address] Bacteria identified Cx Nom (Bld) BLOOD CULTURE Reference No growth at 5 days ORDER COMMENTS: Blood Collection Site: Left Antecubital [ S = SUSCEPTIBLE R = RESISTANT I = INTERMEDIATE S-DD = Susceptible-dose dependent NS = Non-susceptible NO = No Interpretation ] [facility] Comment on above: Performed By: #### L [id number] ####Manager Shell: LACY OROSCO ([id number])[facility] ([facility])[address] [place] [address] BLOOD TYPE AND SCREEN GELon 01-22-2025 ABO GROUPING O Normal [facility] Comment on above: Performed By: #### L [id number] ####Manager Shell: LACY OROSCO ([id number])[facility] ([facility])[address] [place] [address] RH TYPE IN BLOOD Positive Normal [facility] Comment on above: Performed By: #### L [id number] ####Manager Shell: LACY OROSCO ([phone])[facility] ([facility])[address] [place] [address] Basic metabolic 1998 panelon 01-22-2025 Anion gap [Moles/Vol] 8 mmol/L 3 - 13 mmol/L [facility] Calcium [Mass/Vol] 8.4 mg/dL Low 8.8 - 10. 0 mg/dL [facility] Chloride [Moles/Vol] 106 mmol/L 98 - 10 7 mmol/L [facility] CO2 [Moles/Vol] 21 mmol/L Low 23 - 31 mmol/L [facility] Creatinine [Mass/Vol] 1.83 mg/dL High 0.57 - 1.11 mg/dL [facility] GFR/1.73 sq M.predicted (S/P/Bld) [Vol rate/Area] 30.1 mL/min Low - PINF [facility] Comment on above: Calculation based on the Chronic Kidney Disease Epidemiology Collaboration (CKD-EPI) equation refit without adjustment for race Glucose [Mass/Vol] 119 mg/dL High 82 - 115 mg/dL [facility] Interpretation and review of laboratory results Abnormal [facility] Potassium [Moles/Vol] 3.6 mmol/L 3.5 - 5.1 mmol/L [facility] Comment on above: Plasma potassium ines ues may be up to 0.5 mmol/L lower than serum values. Sodium [Moles/Vol] 135 mmol/L Low 136 - 145 mmol/L [facility] Urea nitrogen [Mass/Vol] 28 mg/dL High 9 - 23 mg/dL [facility] Blood type and Crossmatch pa candido (Bld)on 01-22-2025 ABO group Nom (Bld) O [facility] Blood group antibody screen GEL Ql Negative [facility] D Ag Ql (RBC) Positive [facility] CBC (HEMOGRAM)on 01-22-2025 Erythrocyte distribution width (RBC) [Ratio] 14.0 % Normal 11.5-15.0 [facility] Comment on above: Performed By: #### L [id number] ####Manager Shell: LACY OROSCO ([id number])[facility])[address] [place] [address] Hematocrit (Bld) [Volume fraction] 26.5 % Low 35.0-47.0 [facility] Comment on above: Performed By: #### L [id number] ####Manager Shell: LACY OROSCO ([id number])[address] Hemoglobin (Bld) [Mass/Vol] 8.9 g/dL Low 11.7-16.0 [facility] Comment on above: Performed By: #### L [id number] ####Manager Shell: LACY OROSCO ([id number])[address] MCH (RBC) [Entitic mass] 27.2 pg Normal 26.0-34.0 [facility] Comment on above: Performed By: #### L [id number] ####Manager Shell: LACY OROSCO ([id number])[address] MCHC 33.6 % Normal 30.5-36.0 [facility] Comment on above: Performed By: #### L [id number] ####Manager Shell: LACY OROSCO ([id number])[address] MCV (RBC) [Entitic vol] 81.0 fL Normal 77.0-99.0 [facility] Comment on above: Performed By: #### L [id number] ####Manager Shell: LACY OROSCO ([id number])[facility] ([facility])[address] [place] [address] Platelet mean volume (Bld) [Entitic vol] 10.3 fL Normal 9.0-12.7 [facility] Comment on above: Performed By: #### L [id number] ####Manager Shell: LACY OROSCO ([id number])[facility] ([facility])[address] [place] [address] Platelets (Bld) [#/Vol] 221 10*3/uL Normal 140-440 [facility] Comment on above: Performed By: #### L [id number] ####Manager Shell: LACY OROSCO ([id number])[facility] ([facility])[address] [place] [address] RBC (Bld) [#/Vol] 3.27 10*6/uL Low 3.80-5.20 [facility] Comment on above: Performed By: #### L [id number] ####Manager Shell: LACY OROSCO ([id number])[facility] ([facility])[address] [place] [address] WBC (Bld) [#/Vol] 15.4 10*3/uL High 3.6-10.7 [facility] Comment on above: Performed By: #### L [id number] ####Manager Shell: LACY OROSCO ([id number])[facility] ([facility])[address] [place] [address] CBC W Auto Differential pane l (Bld)Ordered By: Jordan Middleton on 01-22-2025 Erythrocyte distribution width (RBC) [Ratio] 13.8 % 11.5 - 15.0 % [facility] Hematocrit (Bld) [Volume fraction] 26.3 % Low 35.0 - 47.0 % [facility] Hemoglobin (Bld) [Mass/Vol] 8.5 g/dL Low 11.7 - 16.0 g/dL [facility] Interpretation and review of laboratory results Abnormal [facility] MCH (RBC) [Entitic mass] 27 pg 26.0 - 34.0 pg [facility] MCHC (RBC) [Mass/Vol] 32.3 % 30.5 - 36.0 % [facility] MCV (RBC) [Entitic vol] 83.5 fL 77.0 - 99.0 fL [facility] Platelet mean volume (Bld) [Entitic vol] 10 fL 9.0 - 12.7 fL [facility] Platelets (Bld) [#/Vol] 221 10*3/uL 140 - 440 10*3/uL [facility] RBC (Bld) [#/Vol] 3.15 10*6/uL Low 3.80 - 5.20 10*6/uL [facility] WBC (Bld) [#/Vol] 17 10*3/uL High 3.6 - 10.7 10*3/uL [facility] CBC WITH AUTO DIFFERENTIALon 01-22-2025 Erythrocyte distribution width (RBC) [Ratio] 13.8 % Normal 11.5-15.0 [facility] Comment on above: Performed By: #### Glory [id number], [id number] ####Manager Shell: LACY OROSCO ([id number])[address] Hematocrit (Bld) [Volume fraction] 26.3 % Low 35.0-47.0 [facility] Comment on above: Performed By: #### Glory [id number], [id number] ####Manager Shell: LACY [id number])[address] Hemoglobin (Bld) [Mass/Vol] 8.5 g/dL Low 11.7-16.0 [facility] Comment on above: Performed By: #### L [id number], [id number] ####Manager Shell: LACY OROSCO ([id number])[address] MCH (RBC) [Entitic mass] 27.0 pg Normal 26.0-34.0 [facility] Comment on above: Performed By: #### L [id number], [id number] ####Manager Shell: LACY [id number])[address] [place] [address] [place] MCHC 32.3 % Normal 30.5-36.0 [facility] Comment on above: Performed By: #### Glory [id number], [id number] ####Manager Shell: LACY OROSCO ([id number])[facility] ([facility])[address] [place] [address] MCV (RBC) [Entitic vol] 83.5 fL Normal 77.0-99.0 [facility] Comment on above: Performed By: #### Glory [id number], [id number] ####Manager Shell: LACY OROSCO ([id number])[facility] ([facility])[address] [place] [address] Platelet mean volume (Bld) [Entitic vol] 10.0 fL Normal 9.0-12.7 [facility] Comment on above: Performed By: #### Glory MCKINNEY, [id number] ####Manager Shell: LACY OROSCO ([id number])[facility] ([facility])[address] [place] [address] Platelets (Bld) [#/Vol] 221 10*3/uL Normal 140-440 [facility] Comment on above: Performed By: #### Glory [id number], [id number] ####Manager Shell: LACY OROSCO ([id number])[facility] ([facility])[address] [place] [address] RBC (Bld) [#/Vol] 3.15 10*6/uL Low 3.80-5.20 [facility] Comment on above: Performed By: #### Glory [id number], [id number] ####Manager Shell: LACY OROSCO ([phone])[facility])[address] [place] [address] WBC (Bld) [#/Vol] 17.0 10*3/uL High 3.6-10.7 [facility] Comment on above: Performed By: #### Glory [id number], [id number] ####Manager Shell: LACY [id number])[facility] ([facility])[address] [place] [address] CBC panel Auto (Bld)on 01-22 Erythrocyte distribution width (RBC) [Ratio] 14 % 11.5 - 15.0 % [facility] Hematocrit (Bld) [Volume fraction] 26.5 % Low 35.0 - 47.0 % [facility] Hemoglobin (Bld) [Mass/Vol] 8.9 g/dL Low 11.7 - 16.0 g/dL [facility] Interpretation and review of laboratory results Abnormal [facility] MCH (RBC) [Entitic mass] 27.2 pg 26.0 - 34.0 pg [facility] MCHC (RBC) [Mass/Vol] 33.6 % 30.5 - 36.0 % [facility] MCV (RBC) [Entitic vol] 81 fL 77.0 - 99.0 fL [facility] Platelet mean volume (Bld) [Entitic vol] 10.3 fL 9.0 - 12.7 fL [facility] Platelets (Bld) [#/Vol] 221 10*3/uL 140 - 440 10*3/uL [facility] RBC (Bld) [#/Vol] 3.27 10*6/uL Low 3.80 - 5.20 10*6/uL [facility] WBC (Bld) [#/Vol] 15.4 10*3/uL High 3.6 - 10.7 10*3/uL [facility] COMPLETE URINALYSIS WITH REF ASHVIN TO CULTUREon 01-22-2025 BACTERIA (#/HPF) IN URINE Few Abnormal Negative [facility] Comment on above: Performed By: #### L [id number], [id number] ####Manager Shell: LACY OROSCO ([id number])[facility] ([facility])[address] [place] [address] [place] BILIRUBIN, TOTAL PRESENCE IN URINE Negative Normal Negative [facility] Comment on above: Performed By: #### L [id number], [id number] ####Manager Shell: LACY OROSCO ([id number])[facility] ([facility])[address] [place] [address] Clarity (U) Extra Turbid Abnormal Clear [facility] Comment on above: Performed By: #### L [id number], [id number] ####Manager Shell: LACY OROSCO ([id number])[facility] ([facility])[address] [place] [address] [place] Color (U) Yellow Normal Lt. Yellow [facility] Comment on above: Performed By: #### L [id number], [id number] ####Manager Shell: LACY OROSCO ([id number])[facility] ([facility])[address] [place] [address] [place] GLUCOSE (MG/DL) IN URINE Normal Normal Normal (<70) [facility] Comment on above: Performed By: #### L [id number], [id number] ####Manager Shell: LACY OROSCO ([id number])[facility])[address] [place] [address] HEMOGLOBIN PRESENCE IN URINE 1.0 mg/dL Abnormal Negative [facility] Comment on above: Performed By: #### L [id number], [id number] ####Manager Shell: LACY OROSCO ([id number])[facility] ([facility])[address] [place] [address] [place] Ketones Ql (U) Negative Normal Negative [facility] Comment on above: Performed By: #### L [id number], [id number] ####Manager Shell: LACY OROSCO ([id number])[facility] ([facility])[address] [place] [address] LEUKOCYTE ESTERASE PRESENCE IN URINE BY TEST STRIP 500 Loren/uL Abnormal Negative [facility] Comment on above: Performed By: #### L [id number], [id number] ####Manager Shell: LACY OROSCO ([id number])[facility] ([facility])[address] [place] [address] [place] NITRITE PRESENCE IN URINE Negative Normal Negative [facility] Comment on above: Performed By: #### L [id number], [id number] ####Manager Shell: LACY OROSCO ([id number])[facility] ([facility])[address] [place] [address] [place] pH (U) 7.5 [pH] Normal 5.0-8.0 [facility] Comment on above: Performed By: #### L [id number], [id number] ####Manager Shell: LACY OROSCO ([id number])[facility])[address] [place] [address] Protein (U) [Mass/Vol] 50 mg/dL Abnormal Negative [facility] Comment on above: Performed By: #### L [id number], [id number] ####Manager Shell: LACY OROSCO ([id number])[facility] ([facility])[address] [place] [address] [place] RBC (#/HPF) IN URINE SEDIMENT 51-100 Abnormal 0-2 [facility] Comment on above: Performed By: #### L [id number], [id number] ####Manager Shell: LACY OROSCO ([id number])[facility])[address] [place] [address] Specific gravity (U) [Rel density] 1.011 Normal 1.005-1.03 0 [facility] Comment on above: Result Comment: RAIMUNDO Salcedo COMMENTS: This specimen has been reflexed to urine culture. Performed By: #### L [id number], [id number] ####Manager Shell: LACY OROSCO ([id number])[facility] ([facility])[address] [place] [address] SQUAMOUS EPITHELIAL CELLS (#/HPF) IN URINE SEDIMENT Negative Normal 3-5 [facility] Comment on above: Performed By: #### L [id number], [id number] ####Manager Shell: LACY OROSCO ([id number])[facility] ([facility])[address] [place] [address] [place] UROBILINOGEN (MG/DL) IN URINE Normal Normal Normal (0-1) [facility] Comment on above: Performed By: #### L [id number], [id number] ####Manager Shell: LACY OROSCO ([id number])[facility] ([facility])[address] [place] [address] [place] WBC (LEUKOCYTE) (#/HPF) IN URINE SEDIMENT >100 Abnormal 0-5 [facility] Comment on above: Performed By: #### L [id number], [id number] ####Manager Shell: LACY OROSCO ([id number])[facility] ([facility])[address] [place] [address] WBC (LEUKOCYTE) CLUMPS (#/HPF) IN URINE SEDIMENT Many Abnormal Negative [facility] Comment on above: Performed By: #### L [id number], [id number] ####Manager Shell: LACY FIONAYAIR ([id number])[facility] [place] [address] CT ABDOMEN PELVIS WO IV CONT RASTon [...] Electronically Signed Date/Time: 01/22/2025 5:25 PM EDT Normal [facility] CT Abdomen and Pelvis WO con traston 01-22-2025 Mild bilateral hydronephrosis. A 4 mm stone in the lower right kidney. Generalized bladder wall thickening may be from bladder outlet obstruction. Report Dictated on Electronically Signed By: Ron Yoon MD Electronically Signed Date/Time: 01/22/2025 5:25 PM EDT [facility] Patient Name: EREN BUSTILLO : 1960 Exam Date/Time: 01/22/2025 15:44 Procedure: [...] bowel inflammation or obstruction. No free fluid. [facility] Ron Yoon MD - 01/22/2025 Patient [...] Electronically Signed Date/Time: 01/22/2025 5:25 PM EDT [facility] Radiology Study observation (narrative) [facility] CT Abdomen and Pelvis [facility] trastOrdered By: Ron Yoon on 01-22-2025 [facility] Work Phone: Consulton 01-22-2025 Consult Hospital Medicine Co nsult Patient - Eren Merchant, Age - 64 y.o. - 1960 Room Number - 5124 Consulting - Jennie Chang DO Primary [...] bleeding Saturday 01/20, she initially presented to [place] ED, was then transferred to [facility] for OB-Home App[employer] Tech consult. Hgb baseline ~12, down to 8. She received 1.5 units of PRBC, second unit stopped for fever. CT A/P showed thickened bladder wall and bilateral hydronephrosis. Bleeding stopped on own this morning, before Megace was given. 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 per patient [...] Resource Strain: Low Risk (12/11/2024) Received from [facility] Overall Financial Resource Strain (CARDIA) Difficulty [...] Physical Activity: Insufficiently Active (12/11/2024) Received from [facility] Exercise Vital Sign Days of Exercise per Week: 3 days Minutes of Exercise per Session: 30 min Stress: No Stress Concern Present (12/11/2024) Received from [facility] [employer] [place] [employer] - Occupational Stress Questionnaire Feeling of Stress : Not at all Social Connections: Moderately Isolated (12/11/2024) Received from [facility] Social Connection and Isolation Panel [NHANES] Frequency of Communication with Friends and Family: More than three times a week Frequency of Social Gatherings with Friends and Family: Once a week Attends [employer]: 1 to 4 times per year [...] SURGERY CHOLECYSTECTOMY (more content not included)... Normal [facility] Consult ------- Attestation signed by Jennie Chang DO at 01/22/2025 6:50 AM See H&P for attestation. [employer] Consult Please page the [facility] OBGYN Call RES group via Secure Chat for any questions or concerns. Patient Name: Eren Merchant Patient : 1960 Room/Bed: [facility] Admission Date/Time: 01/22/2025 3:42 AM Primary Care Physician: Priyanka Smith HPI: Eren Merchant is a 64 y.o. female presenting as transfer from [facility] for heavy vaginal bleeding. She [...] by mouth Nightly. AVS from 03/03 from [facility] with Dr. Benitez states: discontinue the [...] Social Connections: Moderately Isolated (12/11/2024) Received from [facility] Social Connection and Isolation Panel [NHANES] Frequency of Communication with Friends and Family: More than three times a week Frequency of Social Gatherings with Friends and Family: Once a week Attends [employer]: 1 to 4 times per year Active Member of Clubs or Organizations: No Attends Club or Organization Meetings: Never Marital Status: Medications: Current Inpatient [Current Medications] [Current Medications] No current facility-administered medications for this encounter. Current Outpatient Medications Medication Sig Dispense Refill amitriptyline (Elavil) 75 MG tablet Take 75 mg by mouth Nightly. AVS from 03/03 from [facility] with Dr. Benitez states: discontinue the elavil for now - we will taper it down. Take 50 (more content not included)... 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 Started to bleed heavily Wednesday morning going thru approx 70 maxi pads. +clots. Received 1 unit of PRBCs @ [place] but didn't receive full second unit d/t [...] for vaginal bleeding. Patient was transferred from [facility] for [employer] S[employer] consult. Started having heavy bleeding since Wednesday [...] by mouth Nightly. AVS from 03/03 from [facility] with Dr. Benitez states: discontinue the [...] Normal [facility] ED Provider Note Emergency Department Encounter [facility] H5 Patient: Eren Merchant : 1960 Date of Evaluation: 01/21/2025 ED Supervising Physician: Ina Del Toro DO I personally evaluated Eren Merchant and made/approved the management plan and take responsibility for the patient management. This will serve as my Supervisory note and shared attestation. I did perform a substantive portion of the visit including all aspects of the Medical Decision Making. I wore appropriate PPE for the entirety of this encounter. In brief, Eren Merchant is a 64 y.o. that presents to the emergency department via EMS as a transfer from [place] [facility] for [employer] S[employer] consult. She started having heavy vaginal bleeding on Wednesday. She received 1 unit RBCs at [place] but did not receive a second unit due to temperature increase. Per EMS she became hypotensive and route and received 500 units of IV fluids. According the patient she was passing a large amount of clots and went to 70 maxi pads. Starting morning she went through 3-4 maxi pads in an hour. That is when she presented to [facility] for treatment. She currently denies any abdominal pain. Denies lightheadedness or near syncope. She thinks the bleeding has slowed since receiving RBCs. Focused exam: Alert, heart rate is tachycardic, lungs are clear, abdomen is soft nontender nondistended, exam deferred at this time. Brief ED course/MDM: Laboratory evaluation shows a leukocytosis of 17.0, hemoglobin is 8.5, INR 1.2, chemistry is notable for sodium 135, creatinine 1.83 with a glucose of 119, type and screen was sent. David was consulted for evaluation. Patient will be admitted for further evaluation and treatment. Diagnostics interpreted by me: Please see ED course ED Course as of 02/09/25 1424 WedJan 22, 2025 0430 Talked to OB and they will come down to evaluate [TC] 0552 Creatinine(!): 1.83 baseline [TC] 0552 HEMOGLOBIN(!): 8.5 Stable from [facility] [TC] ED Course User Index [TC] Soco Avila MD Diagnoses as of 02/09/25 1424 Vaginal bleeding I personally discussed the patient's management with other clinicians: none CRITICAL CARE TIME None All diagnostic, treatment, and disposition decisions were made by myself in conjunction with the Resident. I also supervised alberts portions of any procedures performed by the Resident. For all further details of the patient's emergency department visit, please see their documentation. (Comment: Please note this report has been produced using speech recognition software and may contain errors related to that system including errors in grammar, punctuation, and spelling, as well as words and phrases that may be inappropriate. If there are any questions or concerns please feel free to contact the dictating provider for clarification.) Ina Del Toro, DO [employer] Ina Del Toro DO 02/09/25 1424 Normal [facility] LACTIC ACID WITH REFLEXon Lactate [Moles/Vol] 0.7 mmol/L Normal 0.5-2.2 [facility] Comment on above: Performed By: #### L [id number] ####Manager Shell: LACY OROSCO ([id number])[facility] ([address] Laboratory - Chemistry and C hemistry - challengeon 01-22-2025 Lactate [Moles/Vol] 0.7 mmol/L 0.5 - 2. 2 mmol/L [facility] Laboratory - Coagulationon 0 01-22-2025 PT Coag (Bld) [Time] 12.4 s High 9.0 - 1 2.0 s [facility] - Hematology and Cell countson 01-22-2025 Band form neutrophils (Bld) [#/Vol] 0.5 10*3/uL High NINF - 0.0 10*3/uL [facility] Band form neutrophils/100 WBC (Bld) 3 % High NINF - 0 % [facility] Lymphocytes (Bld) [#/Vol] 0.3 10*3/uL Low 1.0 - 4.3 10*3/uL [facility] Lymphocytes/100 WBC (Bld) 2 % Low 15 - 45 % [facility] Monocytes (Bld) [#/Vol] 1 10*3/uL High 0.0 - 0.9 10*3/uL [facility] Monocytes/100 WBC (Bld) 6 % 5 - 13 % [facility] Neutrophils (Bld) [#/Vol] 15.6 10*3/uL High 1.8 - 7.5 10*3/uL [facility] Ovalocytes LM Ql (Bld) Slight Abnormal (none) [facility] Poikilocytosis LM Ql (Bld) Slight Abnormal (none) [facility] RBC morphology finding Nom (Bld) abnormal [facility] Segmented neutrophils/100 WBC (Bld) 89 % High 38 - 82 % [facility] MANUAL DIFFERENTIAL (CELLAVI DARIUSZ)on 01-22-2025 BAND NEUTROPHILS TOTAL PER COUNTED LEUKOCYTES BY MANUAL COUNT 3 Normal [facility] Comment on above: Performed By: #### L [id number], [id number] ####Manager Shell: LACY OROSCO ([id number])[facility] ([facility])[address] [place] [address] [place] BANDS (10*3/UL) IN BLOOD-CELLAVISION 0.5 10*3/uL High <=0.0 [facility] Comment on above: Performed By: #### L [id number], [id number] ####Manager Shell: LACY OROSCO ([phone])[facility])[address] [place] [address] BASOPHILS TOTAL PER COUNTED LEUKOCYTES BY MANUAL COUNT Normal [facility] Comment on above: Performed By: #### L [id number], [id number] ####Manager Shell: LACY OROSCO ([phone])[facility])[address] [place] [address] [place] BLASTS TOTAL PER COUNTED LEUKOCYTES BY MANUAL COUNT Normal [facility] Comment on above: Performed By: #### L [id number], [id number] ####Manager Shell: LACY OROSCO ([id number])[facility])[address] [place] [address] [place] EOSINOPHILS TOTAL PER COUNTED LEUKOCYTES BY MANUAL COUNT Normal [facility] Comment on above: Performed By: #### L [id number], [id number] ####Manager Shell: LACY OROSCO ([id number])[facility] ([facility])[address] [place] [address] [place] LYMPHOCYTES (10*3/UL) IN BLOOD-CELLAVISION 0.3 10*3/uL Low 1.0-4.3 [facility] Comment on above: Performed By: #### L [id number], [id number] ####Manager Shell: LACY OROSCO ([id number])[facility] ([facility])[address] [place] [address] [place] LYMPHOCYTES TOTAL PER COUNTED LEUKOCYTES BY MANUAL COUNT 2 Normal [facility] Comment on above: Performed By: #### Glory [id number], [id number] ####Manager Shell: LACY OROSCO ([id number])[facility] ([facility])[address] [place] [address] [place] LYMPHOCYTES/100 LEUKOCYTES IN BLOOD-CELLAVISION 2 % Low 15-45 [facility] Comment on above: Performed By: #### Glory [id number], [id number] ####Manager Shell: LACY OROSCO ([id number])[facility])[address] [place] [address] [place] METAMYELOCYTES TOTAL PER COUNTED LEUKOCYTES BY MANUAL COUNT Normal [facility] Comment on above: Performed By: #### Glory [id number], [id number] ####Manager Shell: LACY OROSCO ([id number])[facility] ([facility])[address] [place] [address] [place] MONOCYTES (10*3/UL) IN BLOOD-CELLAVISION 1.0 10*3/uL High 0.0-0.9 [facility] Comment on above: Performed By: #### Glory [id number], [id number] ####Manager Shell: LACY OROSCO ([phone])[facility])[address] [place] [address] [place] MONOCYTES TOTAL PER COUNTED LEUKOCYTES BY MANUAL COUNT 6 Normal [facility] Comment on above: Performed By: #### L [id number], [id number] ####Manager Shell: LACY OROSCO ([id number])[facility] ([facility])[address] [place] [address] [place] MONOCYTES/100 LEUKOCYTES IN BLOOD-SARIKA 6 % Normal 5-13 [facility] Comment on above: Performed By: #### L [id number], [id number] ####Manager Shell: LACY OROSCO ([id number])[facility] ([facility])[address] [place] [address] [place] MYELOCYTES COUNTED BY MANUAL COUNT Normal [facility] Comment on above: Performed By: #### L [id number], [id number] ####Manager Shell: LACY OROSCO ([id number])[facility] ([facility])[address] [place] [address] NEUTROPHILS BAND FORM/100 LEUKOCYTES IN BLOOD-CELLAVISI 3 % High <=0 [facility] Comment on above: Performed By: #### L [id number], [id number] ####Manager Shell: LACY OROSCO ([id number])[facility] ([facility])[address] [place] [address] NEUTROPHILS TOTAL PER COUNTED LEUKOCYTES BY MANUAL COUNT 88 Normal [facility] Comment on above: Performed By: #### L [id number], [id number] ####Manager Shell: LACY OROSCO ([phone])[facility] ([facility])[address] [place] [address] [place] OVALOCYTES PRESENCE IN BLOOD BY LIGHT MICROSCOPY Slight Abnormal (none) [facility] Comment on above: Performed By: #### L [id number], [id number] ####Manager Shell: LACY OROSCO ([phone])[facility] ([facility])[address] [place] [address] [place] POIKILOCYTOSIS (PRESENCE) IN BLOOD BY LIGHT MICROSCOPY Slight Abnormal (none) [facility] Comment on above: Performed By: #### L [id number], [id number] ####Manager Shell: LACY OROSCO ([id number])[facility] ([facility])[address] [place] [address] [place] PROMYELOCYTES TOTAL PER COUNTED LEUKOCYTES BY MANUAL COUNT Normal [facility] Comment on above: Performed By: #### L [id number], [id number] ####Manager Shell: LACY OROSCO ([id number])[facility] ([facility])[address] [place] [address] [place] RBC MORPHOLOGY IN BLOOD abnormal Normal [facility] Comment on above: Performed By: #### L [id number], [id number] ####Manager Shell: LACY ORSOCO ([id number])[facility])[address] [place] [address] SEGMENTED NEUTROPHILS (10*3/UL) IN BLOOD-CELLAVISION 15.6 10*3/uL High 1.8-7.5 [facility] Comment on above: Performed By: #### L [id number], [id number] ####Manager Shell: LACY OROSCO ([id number])[facility] ([facility])[address] [place] [address] SEGMENTED NEUTROPHILS/100 LEUKOCYTES-CE 89 % High 38-82 [facility] Comment on above: Performed By: #### L [id number], [id number] ####Manager Shell: LACY OROSCO ([id number])[facility])[address] [place] [address] UNCLASSIFIED CELLS TOTAL PER COUNTED LEUKOCYTES BY MANUAL COUNT [facility] Comment on above: Performed By: #### L [id number], [id number] ####Manager Shell: LACY OROSCO ([id number])[facility])[address] [place] [address] VARIANT LYMPHOCYTES TOTAL PER COUNTED LEUKOCYTES BY MANUAL COUNT Normal [facility] Comment on above: Performed By: #### L [id number], [id number] ####Manager Shell: LACY OROSCO ([id number])[facility])[address] [place] [address] MRSA BY PCRon 01-22-2025 MRSA BY PCR [...] modified and its performance characteristics determined by [facility]. The U. S. Food and Drug Administration has not approved or cleared this test; however, FDA clearance or approval is not currently required for clinical use. The results are not intended to be used as the sole means for clinical diagnosis or patient management decisions. Normal [facility] Comment on above: Performed By: #### L [id number] ####Manager Shell: LACY OROSCO ([id number])[facility] ([facility])[address] [place] [address] No Panel Informationon 01-22 Extra Tube Hold for add-ons. [facility] Comment on above: Auto resulted. [facility] Interpretation and review of laboratory results Normal [facility] Atypical Lymphocytes Manual [facility] Bands Manual 3 [facility] Basophils Manual [facility] Blasts Manual [facility] Eosinophils Manual [facility] Interpretation and review of laboratory results Abnormal [facility] Lymphocytes Manual 2 [facility] Metamyelocytes Manual [facility] Monocytes Manual 6 [facility] Myelocytes Manual [facility] Neutrophils Manual 88 [facility] Promyelocytes Manual [facility] Unclassified Cells, Manual [facility] PROTHROMBIN TIMEon INR Coag (PPP) [Relative [...] Myocardial Infarction Performed By: #### L [id number] ####Manager Shell: LACY OROSCO ([id number])[facility] ([facility])[address] [place] [address] PT Coag (PPP) [Time] 12.4 s High 9.0-12.0 [facility] Comment on above: Performed By: #### L [id number] ####Manager Shell: LACY OROSCO ([id number])[facility] ([facility])[address] [place] [address] PT Coag (Bld) [Time]on 01-22 INR Coag (PPP) [Relative time] 1.2 {INR} High 0.9 - 1.1 [facility] Comment on above: Recommended Anticoag ulant Therapy: [...] Interpretation and review of laboratory results Abnormal [facility] Progress Noteon 01-22-2025 Progress Note Pharmacy Managed [facility] [address] Dosing Service Consult Note Consult Date: 01/22/25 [...] creatinine, and vancomycin levels interfaced automatically to [employer] and data has been analyzed and interpreted. [...] questions. DATE: 01/22/25 TIME: 7:39 PM Kat Garcia, AnastacioD Clinical Pharmacist Available via [employer] [facility] Progress Note JAN- CORE MEASURE D MARGARET [...] Patient does not have Septic Shock. Tonny Mendoza, DO [facility] Progress Note Patient evaluated at the bedside [...] is beta-lactam allergic, providers should call the [facility]biology Laboratory ([phone]) within 3 days to request susceptibility testing. [...] on above: Performed By: #### L [id number] ####Manager Shell: LACY OROSCO ([id number])[facility])[address] [place] [address] Bacteria identified Cx Nom (U) URINE CULTURE (A) Reference ESCHERICHIA COLI >100,000 CFU/mL Escherichia coli (A) For identification and/or sensitivity, refer to culture collected on: 01/22/2025 at 20:27 (25[id number]) STREPTOCOCCUS AGALACTIAE (GROUP B) 50,000-90,000 CFU/mL Streptococcus agalactiae (Group B) (A) Susceptibility testing not performed. Beta-hemolytic streptococci are universally susceptible to beta-lactam antibiotics. If patient is beta-lactam allergic, providers should call the [facility] ([phone]) within 3 days to request susceptibility testing. [ S = SUSCEPTIBLE R = RESISTANT I = INTERMEDIATE S-DD = Susceptible-dose dependent NS = Non-susceptible NO = No Interpretation ] Normal [facility] Comment on above: Performed By: #### L [id number], [id number] ####Manager Shell: LACY OROSCO ([id number])[facility] ([facility])[address] [place] [address] Urinalysis complete panel (U )Ordered By: Ching Azar on 01-22-2025 Bacteria LM.HPF (Urine sed) [#/Area] Few Abnormal Negative /HPF [facility] Bilirubin Ql (U) Negative Negative mg/dL [facility] Clarity (U) Extra Turbid Abnormal Clear [facility] Color (U) Yellow Lt. Yellow [facility] Epithelial cells.squamous LM.HPF (Urine sed) [#/Area] Negative [facility] Glucose Ql (U) Normal Normal (<70) mg/dL [facility] Hemoglobin Ql (U) 1.0 mg/dL Abnormal Negative [facility] Interpretation and review of laboratory results Abnormal [facility] Ketones (U) [Mass/Vol] Negative Negat leif mg/dL [facility] Leukocyte clumps LM.HPF (Urine sed) [#/Area] Many Abnormal Negative /HPF [facility] Leukocyte esterase Test strip Ql (U) 500 Abnormal Negative Loren/uL [facility] Nitrite Ql (U) Negative Negative [facility] pH (U) 7.5 [pH] 5.0 - 8.0 pH [facility] Protein (U) [Mass/Vol] 50 mg/dL Abnormal Negative [facility] RBC LM.HPF (Urine sed) [#/Area] 51-100 Abnormal [facility] Specific gravity (U) [Rel density] 1.011 1.005 - 1.030 [facility] Urobilinogen (U) [Mass/Vol] Normal Normal (0-1) mg/dL [facility] WBC LM.HPF (Urine sed) [#/Area] /[HPF] Abnormal [facility] This specimen has be en reflexed to urine culture. [facility] 12 Lead EKGon 01-21-2025 12 Lead EKG [facility] [address] [place] [address] 12 Lead EKG 01/21/251947 MR#: [id number] Acct: [id number] Name: EREN MERCHANT Rep #: [id number] : 1960 64 From: Mathew Parkinson MD [...] abnormality Abnormal ECG Confirmed by Mathew Parkinson ([id number]), senior editor ABDULKADIR LOPEZ ([id number]) on 01/22/2025 9:53:08 AM Referred By: Confirmed By: Mathew Parkinson 01/22/25 0953 Date Mathew Parkinson MD CC: Dr. Gonzalo Day MD; Dr. Michelle Mosher DO Signed Normal [facility] Abdomen/Pelvis W IV Cont ONL Yon 01-21-2025 Abdomen/Pelvis W IV Cont ONLY [facility] Imaging Services [address] [place] [address] Abdomen/Pelvis W IV Cont ONLY MR#: [id number] Acct: [id number] Name: EREN MERCHANT Rep #: [id number] : 1960 F 64 From: Nain Guthrie MD PCP: Dr. Gonzalo Day MD Status: REG ER Study: Abdomen/Pelvis W IV Cont ONLY Date of Exam: Exam# [id number] Ordering Dr: Michelle Mosher DO PROCEDURE: ABDOMEN/PELVIS [...] correlation is (more content not included)... Normal [facility] Absolute lymphocyte countOrd ered By: Michelle Mosher on 01-21-2025 Lymphocytes Auto (Unsp spec) [#/Vol] 0.75 10*3/uL Low 0.83-4.51 [facility] Absolute neutrophil countOrd ered By: Michelle Mosher on 01-21-2025 Neutrophils (Bld) [#/Vol] 19.8 10*3/uL High 2.0-7.7 [facility] Anion gap in Serum or Plasma Ordered By: Michelle Mosher on 01-21-2025 Anion gap [Moles/Vol] 12 mmol/L 5-15 [facility] Automated lymphocyte count a s percentage of total leukocytesOrdered By: Michelle Mosher on 01-21-2025 Lymphocytes/100 WBC Auto (Unsp spec) 3.3 % Low 19-41 [facility] BRCon 01-21-2025 RC Normal [facility] Comment on above: Result Comment: [id number] OP RC TRANSFUSED 01/22/25 0011 [id number] OP RC TRANSFUSED 01/21/252134 Performed By: #### B RC ####[facility] [address] [place], [address] BUN/creatinine ratioOrdered By: Michelle Mosher on 01-21-2025 Urea nitrogen/Creatinine [Mass ratio] 15.5 mg/mg 10-20 [facility] Basophil percentageOrdered B y: Michelle Mosher on 01-21-2025 Basophils/100 WBC (Bld) 0.1 % 0-1 [facility] Bilirubin, totalOrdered By: Michelle Mosher on 01-21-2025 Bilirubin [Mass/Vol] 0.49 mg/dL Normal 0.00-1.30 [facility] Comment on above: Performed By: #### L [id number], L100.0100, BTS ####[facility] [address] [place], [address] CBC W/Diff, Automatedon RED CELL MORPH NORM C+C Normal NORM C C [facility] Comment on above: Performed By: #### L 500.4050, L100.0100, BTS ####[facility] [address] [place], [address] PLT EST ADEQUATE Normal ADEQ [facility] Comment on above: Performed By: #### L 500.4050, L100.0100, BTS ####[facility] [address] [place], [address] Carbon dioxide, total [Moles /volume] in Central venous bloodOrdered By: Michelle Mosher on 01-21-2025 CO2 [Moles/Vol] 22.4 mmol/L Normal 21.0-32.0 [facility] Comment on above: Performed By: #### L 500.4050, L100.0100, BTS ####[facility] [address] [place], [address] Chloride assayOrdered By: Hina Mosher on 01-21-2025 Chloride [Moles/Vol] 98 mmol/L Normal 98-108 [facility] Comment on above: Performed By: #### L 500.4050, L100.0100, BTS ####[facility] [address] [place], [address] Comprehensive Metabolic Prof ilon 01-21-2025 ALK PHOS 102 U/L Normal 35-104 [facility] Comment on above: Performed By: #### L 500.4050, L100.0100, BTS ####[facility] [address] [place], [address] BUN/CRE 15.5 RATIO Normal 10-20 [facility] Comment on above: Performed By: #### L 500.4050, L100.0100, BTS ####[facility] [address] [place], [address] ECRCL 27.29 ml/min Low 50-250 [facility] Comment on above: Performed By: #### L 500.4050, L100.0100, BTS ####[facility] [address] [place], [address] GAP 12 Normal 5-15 [facility] Comment on above: Performed By: #### L 500.4050, L100.0100, BTS ####[facility] [address] [place], [address] Potassium [Moles/Vol] 3.5 mmol/L Normal 3.3-5.1 [facility] Comment on above: Performed By: #### L 500.4050, L100.0100, BTS ####[facility] [address] [place], [address] T PROT 6.2 g/dL Normal 5.9-8.4 [facility] Comment on above: Performed By: #### L 500.4050, L100.0100, BTS ####[facility] [address] [place], [address] Comprehensive Metabolic Prof ilOrdered By: Michelle Mosher on 01-21-2025 AST [Catalytic activity/Vol] 32 U/L Normal <=31 [facility] Comment on above: Performed By: #### L 500.4050, L100.0100, BTS ####[facility] [address] [place], [address] Emergency Department Summary on 01-21-2025 Emergency Department Summary [facility] Medical Records Department [address] [place] [address] Emergency Department Summary 01/21/25 MR#: [id number] Acct: [id number] Name: EREN MERCHANT Rep #: [id number] : 1960 64 From: Michelle Mosher DO [...] Reaction Status Date / Time cetirizine (From [facility]) Allergy Intermediate Rash Verified 01/21/25 19:26 [...] pain PHYSI (more content not included)... Normal [facility] Eosinophil percentageOrdered By: Michelle Mosher on 01-21-2025 Eosinophils/100 WBC (Bld) 0.0 % 0-5 [facility] Erythrocyte distribution wid th ratioOrdered By: Michelle Mosher on 01-21-2025 Erythrocyte distribution width (RBC) [Ratio] 13.8 % 11.6-14.6 [facility] Erythrocyte distribution wid th standard deviationOrdered By: Michelle Mosher on 01-21-2025 Erythrocyte distribution width (RBC) [Ratio] 42.1 fl 35.1-43.9 [facility] Erythrocyte morphology asses smentOrdered By: Michelle Mosher on 01-21-2025 RBC morphology finding Nom (Bld) NORM C+C NORMAL NORM C&C [facility] Glomerular filtration rate ( GFR) estimation/1.73 sq m using serum, plasma, or whole bOrdered By: Michelle Mosher on 01-21-2025 GFR/1.73 sq M.predicted among non-blacks MDRD (S/P/Bld) [Vol rate/Area] 26 mL/min/{1.73_m2} Low >60 [facility] Comment on above: mL/min/1.73m2 CKD-EP I Creatinine Equation (2020) Result Comment: mL/m in/1.73m2 CKD-EPI Creatinine Equation (2020) Performed By: #### L 500.4050, L100.0100, BTS ####[facility] [address] [place], [address] Hematocrit Auto (Bld) [Volum e fraction]Ordered By: Michelle Mosher on 01-21-2025 Hematocrit (Bld) [Volume fraction] 26.9 % Low 37-47 [facility] Hemoglobin measurementOrdere d By: Michelle Mosher on 01-21-2025 Hemoglobin (Bld) [Mass/Vol] 8.5 g/dL Low 12.0-15.0 [facility] Immature granulocytes/100 WB C Auto (Bld)Ordered By: Michelle Mosher on 01-21-2025 Immature granulocytes/100 WBC (Bld) 0.700 % 0.0-0.9 [facility] Comment on above: IG% - Immature Granu locytes (promyelocytes, myelocytes and metamyelocytes) > 1% indicates that a LEFT SHIFT is Present. MCV (mean corpuscular volume ) determinationOrdered By: Michelle Mosher on 01-21-2025 MCV (RBC) [Entitic vol] 83.0 fL 81-99 [facility] Mean corpuscular hemoglobin (MCH) determinationOrdered By: Michelle Mosher on 01-21-2025 MCH (RBC) [Entitic mass] 26.2 pg Low 27.0-32.0 [facility] Mean corpuscular hemoglobin concentration (MCHC) determinationOrdered By: Michelle Mosher on 01-21-2025 MCHC (RBC) [Mass/Vol] 31.6 g/dL Low 32-36 [facility] Mean platelet volume determi nationOrdered By: Michelle Mosher on 01-21-2025 Platelet mean volume (Bld) [Entitic vol] 10.1 fL 6.2-12.0 [facility] Monocyte percentageOrdered B y: Michelle Mosher on 01-21-2025 Monocytes/100 WBC (Bld) 9.3 % 0-10 [facility] Neutrophil percentageOrdered By: Michelle Mosher on 01-21-2025 Neutrophils/100 WBC (Bld) 86.6 % High 47-70 [facility] Nucleated red blood cell per centageOrdered By: Michelle Mosher on 01-21-2025 Nucleated RBC/100 WBC (Bld) [Ratio] 0 % 0-5 [facility] Platelet countOrdered By: Hina Mosher on 01-21-2025 Platelets (Bld) [#/Vol] 281 10*3/uL 150-450 [facility] Platelet estimateOrdered By: Michelle Mosher on 01-21-2025 Platelets LM Ql (Bld) ADEQUATE ADEQ [facility] Potassium measurement (mass/ volume)Ordered By: Michelle Mosher on 01-21-2025 Potassium (Unsp spec) [Mass/Vol] 3.5 mmol/L 3.3-5.1 [facility] RBC Auto (Bld) [#/Vol]Ordere d By: Michelle Mosher on 01-21-2025 RBC (Bld) [#/Vol] 3.24 10*6/uL Low 4.2-5.4 [facility] Serum creatinine measurement (mass/volume)Ordered By: Michelle Mosher on 01-21-2025 Creatinine [Mass/Vol] 2.06 mg/dL High 0.70-1.20 [facility] Comment on above: Performed By: #### L 500.4050, L100.0100, BTS ####[facility] [address] [place], [address] Serum globulin measurementOr dered By: Michelle Mosher on 01-21-2025 Globulin (S) [Mass/Vol] 2.8 g/dL Normal 2.2-4.2 [facility] Comment on above: Performed By: #### L 500.4050, L100.0100, BTS ####[facility] [address] [place], [address] Serum glucose measurement (m ass/volume)Ordered By: Michelle Mosher on 01-21-2025 Glucose [Mass/Vol] 157 mg/dL High 70-99 [facility] Comment on above: Performed By: #### L 500.4050, L100.0100, BTS ####[facility] [address] [place], [address] Serum or plasma alanine rodas otransferase (ALT) measurementOrdered By: Michelle Mosher on 01-21-2025 ALT [Catalytic activity/Vol] U/L Normal <=34 [facility] Comment on above: Performed By: #### L 500.4050, L100.0100, BTS ####[facility] [address] [place], [address] Serum or plasma albumin raman urement (mass/volume)Ordered By: Michelle Mosher on 01-21-2025 Albumin [Mass/Vol] 3.3 g/dL Low 3.4-4.8 [facility] Comment on above: Performed By: #### L 500.4050, L100.0100, BTS ####[facility] [address] [place], [address] Serum or plasma albumin/glob ulin mass ratioOrdered By: Michelle Mosher on 01-21-2025 Albumin/Globulin [Mass ratio] 1.2 {ratio} Normal 0.9-2.4 [facility] Comment on above: Performed By: #### L 500.4050, L100.0100, BTS ####[facility] [address] [place], [address] Serum or plasma alkaline delia sphatase measurementOrdered By: Michelle Mosher on 01-21-2025 ALP [Catalytic activity/Vol] 102 U/L 35-104 [facility] Serum or plasma calcium raman urement (mass/volume)Ordered By: Michelle Mosher on 01-21-2025 Calcium [Mass/Vol] 9.3 mg/dL Normal 7.6-11.0 [facility] Comment on above: Performed By: #### L 500.4050, L100.0100, BTS ####[facility] [address] [place], [address] Serum or plasma urea nitroge n measurement (mass/volume)Ordered By: Michelle Mosher on 01-21-2025 Urea nitrogen [Mass/Vol] 32 mg/dL High 4-19 [facility] Comment on above: Performed By: #### L 500.4050, L100.0100, BTS ####[facility] [address] [place], [address] Sodium levelOrdered By: Jennifer Mosher on 01-21-2025 Sodium [Moles/Vol] 132 mmol/L Low 133-145 [facility] Comment on above: Performed By: #### L 500.4050, L100.0100, BTS ####[facility] [address] [place], [address] Total proteinOrdered By: Munir Mosher on 01-21-2025 Protein [Mass/Vol] 6.2 g/dL 5.9-8.4 [facility] Transvaginal Non-on 01-21-2025 Transvaginal Non- [facility] Imaging Services [address] [place], [place] [address] Transvaginal Non- MR#: [id number] Acct: [id number] Name: EREN MERCHANT Rep #: [id number] : 1960 F 64 From: Kemar Garcia MD PCP: Dr. Gonzalo Day MD Status: REG ER Study: Transvaginal Non- Date of Exam: Exam# [id number] Ordering Dr: Michelle Mosher DO PROCEDURE: TRANSVAGINAL [...] ovary is visualized.. US/Transvaginal Non- IMPRESSION: 1. [place] tubular shaped fluid-filled structure in the left [...] 4. Questionable subcentimeter uterine fibroid. [facility]: Dr. Gonzalo Day MD; Dr. Michelle Mosher DO Fermenter Operator: Signed Normal [facility] Type AND Screenon 01-21-2025 ABO and Rh group Nom (Bld) Blood group O Rh(D) positive Normal [facility] Comment on above: Order Comment: A Performed By: #### L 500.4050, L100.0100, BTS ####[facility] [address] [place], [address] White blood cell (WBC) count Ordered By: Michelle Mosher on 01-21-2025 WBC (Bld) [#/Vol] 22.8 10*3/uL High 4.4-11.0 [facility] Abdomen Single Viewon 2024 Abdomen Single View [facility] Imaging Services [address] [place], [place] [address] Abdomen Single View MR#: [id number] Acct: [id number] Name: EREN MERCHANT Rep #: [id number] : 1960 F 64 From: Bogdan Ricci MD PCP: Dr. Gonzalo Day MD Status: REG CLI Study: Abdomen Single View Date of Exam: 12/29/24 Exam# [id number] Ordering Dr: Hilary Soto PROCEDURE: ABDOMEN SINGLE [...] constipation. Other findings as noted. Reading Location: [id number] CC: Dr. Gonzalo Day MD; KAUSHAL Alas Fermenter Operator: Signed Normal [facility] Gastroenterology Visit Repor ton 12-29-2024 Gastroenterology Visit Report [facility] Gastroenterology [address] [place] [address] OFFICE VISIT Date of Service: 12/29/24 MR#: [id number] Acct: [id number] Name: EREN MERCHANT Rep #: [id number] : 1960 Provider: KAUSHAL Alas Age/Sex: 64/F Location: [facility] Status: Signed Intake Vital Signs 12/22/24 12:21 [...] She h (more content not included)... Normal [facility] Colonoscopy Reporton 025 Colonoscopy Report [facility] Medical Records Department [address] [place] [address] Colonoscopy Report MR#: [id number] Acct: [id number] Name: EREN MERCHANT Rep #: [id number] : 1960 64 From: Aditya Cota DO PCP: Dr. Gonzalo Day MD Status:REG [facility] Patient Name: Eren Merchant Procedure Date: 12/22/2024 [...] was poor. Procedure Code(s): --- Professional --- 27308, 53, Colonoscopy, flexible; diagnostic, including collection of specimen(s) by brushing or washing, when performed (separate procedure) CPT copyright 2021 [employer]. All rights reserved. The codes documented in this report are preliminary and upon web operations specialist review may be revised to meet current compliance requirements. Aditya Cota DO 12/22/2024 1:55:32 PM This report has been signed electronically. Number of Addenda: 0 Note Initiated On: 12/22/2024 1:36 PM 12/22/24 4725 Date Aditya Cota DO Cosigner Signature: Date (if indicated) CC: Dr. Gonzalo Day MD; Aditay Cota DO Date Dictated: 12/22/24 1336 Date Transcribed: Fermenter Operator: RF Signed [facility] Medical Records Department [address] [place] [address] Provation Physician Letter MR#: [id number] Acct: [id number] Name: EREN MERCHANT Rep #: [id number] : 1960 64 From: Aditya Cota DO PCP: Dr. Gonzalo Day MD Status:REG [facility] 12/22/2024 Gonzalo Day Re : Colonoscopy procedure [...] This report has been signed electronically. 12/22/24 5682 Date Aditya Bates Signature: Date (if indicated) CC: Dr. Gonzalo Day MD; Aditya Cota DO Date Dictated: 12/22/24 1336 Date Transcribed: Fermenter Operator: RF Signed [facility] MR/POSTOP.[facility] 12-22-2024 MR/POSTOP.[facility] Medical Records Department [address] [place] [address] Anesthesia Postop Eval I 12/22/241357 MR#: [id number] Acct: [id number] Name: EREN MERCHANT Rep #: [id number] : 1960 64 From: Ana Pardo STATISTICAL TYPIST PCP: Dr. Gonzalo Day MD Status:REG [facility] Y Race: C Location: [place] [address] Anesthesia: Postop Eval I Current Vital Signs Temperature: 97.9 F Pulse Rate: 84 Blood Pressure: 123/55 Respiratory Rate: 20 Pulse Ox: 100 Assessment Airway patent: Yes Spontaneous unlabored respirations: Yes nausea: No Vomiting: No Anesthesia Complication: No Fluid Hydration Crystalloid volume administer (ml): 200 Total IV fluid infused: 200 Progress Note Anesthesia document: Postop Eval 1 completed: Yes 12/22/241358 Date Ana Sirca STATISTICAL TYPIST Cosigner Signature: Date CC: Signed [facility] MR/PAT.[facility] 12-19-2024 MR/PAT.[facility] Medical Records Department [address] [place] [address] PAT - Anesthesia 12/19/24 1652 MR#: [id number] Acct: [id number] Name: EREN MERCHANT Rep #: [id number] : 1960 64 From: Johnathan Ennis MD PCP: Dr. 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 [...] take am of surgery PONV PONV - tool 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: PONV - tool 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 Female Yes 12/19/24 12:42 HX of Motion [...] 06/06/24 14:36 Respiratory Assessment Respiratory Assessment - tool 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: Respiratory Tract Infection Hx - tool 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 Hx Respiratory Tract Infection No 12/19/24 12:42 STOP Sleep Apnea STOP Sleep Apnea - tool 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: STOP Sleep Apnea - tool 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 Hx Hypertension No 12/19/24 12:42 Hx Sleep [...] Tobacco Use History Tobacco Use History - tool 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: Tobacco Use History - tool 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 Tobacco Use Smoking Status Never smoker 12/19/24 12:42 Hx Tobacco Use No 12/19/24 12:42 Years Smoking Packs Smoked per Day Smoking Cessation Date was within the last 15 years Hx Smoking Cessation Date Hx Smoking Cessation Counseling Hematologic Medial History Hematologic Hx - 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 Normal [facility] CNOVon 12-06-2024 CNOV Normal [facility] CNOVon 11-29-2024 CNOV Normal [facility] CNOVon 11-16-2024 CNOV Normal [facility] CNPNon 11-14-2024 CNPN [facility] Gastroenterology Visit Repor ton 11-08-2024 Gastroenterology Visit Report [facility] Gastroenterology [address] [place] [address] OFFICE VISIT Date of Service: 11/08/24 MR#: [id number] Acct: [id number] Name: EREN MERCHANT Rep #: [id number] : 1960 Provider: KAUSHAL Alas Age/Sex: 64/F Location: [facility] Status: Signed Intake Vital Signs 06/06/24 14:36 [...] mcg (1,000 unit) tablet (Vitamin D3) geriatric eudlgeyw-dldf-ybez 1 ea PO DAILY 06/28/18 11/08/24 Hi [...] bowel resection (more content not included)... Normal [facility] CNOVon 10-31-2024 CNOV Normal [facility] CNTHERAPYon 10-31-2024 CNTHERAPY Normal [facility] CNOVon 10-26-2024 CNOV Normal [facility] LUNG DIFFUSION CAPACITY (LAN O)on 10-26-2024 LUNG DIFFUSION CAPACITY (DLCO) Normal [facility] LUNG VOLUMESon 10-26-2024 LUNG VOLUMES Normal [facility] SPIROMETRY BASELINE ONLYon 0 10-26-2024 SPIROMETRY BASELINE ONLY Normal [facility] CNTHERAPYon 10-17-2024 CNTHERAPY Normal [facility] THERAPY NTon 10-17-2024 THERAPY NT Normal [facility] Gastroenterology Visit Repor ton 10-11-2024 Gastroenterology Visit Report [facility] Gastroenterology [address] [place] [address] OFFICE VISIT Date of Service: 10/11/24 MR#: [id number] Acct: [id number] Name: EREN MERCHANT Rep #: [id number] : 1960 Provider: KAUSHAL Alas Age/Sex: 64/F Location: [facility] Status: Signed Intake Vital Signs 06/06/24 14:36 [...] mcg (1,000 unit) tablet (Vitamin D3) geriatric ussloalx-uirn-uvyf 1 ea PO DAILY 06/28/18 10/11/24 Hi [...] Swallowing improved after treatment with fluconazole. OV 10.11. Pt having burning in her [...] Cardio Cardi (more content not included)... Normal [facility] CNTHERAPYon 10-10-2024 CNTHERAPY Normal [facility] THERAPY NTon 10-10-2024 THERAPY NT Normal [facility] CNTHERAPYon 10-02-2024 CNTHERAPY Normal [facility] 25(OH)D3 SerPl-ncon 2024 25-hydroxyvitamin D3 [Mass/Vol] 63.0 ng/mL Normal 31.0-80.0 [facility] Comment on above: Order Comment: Speci men Type: BLOOD SPECIMENOrdering Facility: [facility] Address: [place] [address] Result Comment: Clas sification of 25 [place] Vitamin D status:Deficiency/Insufficiency: < or = 30 ng/ml.Sufficiency/Optimal Levels: 31-80 ng/mLToxicity: > 100 ng/mL.Test performed by chemiluminescent immunoassay. Performed By: #### 1 989-3 ####[facility] LABCLIA [id number] [place] [address] [place] [id number] 09-28-2024 [id number] Normal [facility] ALBUMIN/CREATININE RATIO, UR INEon 09-28-2024 Albumin DL <= 20 mg/L (U) [Mass/Vol] 386.0 mg/L Normal [facility] Comment on above: Order Comment: Speci men Type: URINE SPECIMENOrdering Facility: [facility] [place] Address: [place] [address] Performed By: #### 2 890-2, UACR ####[facility] LABCLIA [id number] [address] [address] [place] Albumin/Creatinine (U) [Mass ratio] 161 mg/g High <30 [facility] Comment on above: Order Comment: Speci men Type: URINE SPECIMENOrdering Facility: [facility] Address: [place] [address] Result Comment: Adul t Male and Female Nephrotic Criteria:<30 mg/g is considered normal to mildly nypxakoxx83-765 mg/g is considered moderately increased>300 mg/g is considered severely increasedKDIGO. (2013). KDIGO 2012 Clinical Practice Guideline for the Evaluation and Management of Chronic Kidney Disease. Official Journal of the International Society of Nephrology, 3(1), 1-150. Performed By: #### 2 890-2, UACR ####[facility] LABIA [id number] [address] [address] [place] CNTHERAPYon 09-28-2024 CNTHERAPY Normal [facility] Magnesium SerPl-mCncon 09-28 Magnesium [Mass/Vol] 2.1 mg/dL Normal 1.7-2.3 [facility] Comment on above: Order Comment: Speci men Type: BLOOD SPECIMENOrdering Facility: [facility] Address: [place] [address] Performed By: #### 1 9123-9, 2731-8, 42184-2 ####[facility] LABCLIA [id number] [address] [address] [place] PTH-Intact SerPl-mCncon 05- Parathyrin.intact [Mass/Vol] 33 pg/mL Normal 15-65 [facility] Comment on above: Order Comment: Speci men Type: BLOOD SPECIMENOrdering Facility: [facility] Address: [place] [address] Performed By: #### 1 9123-9, 2731-8, 34265-6 ####[facility] LABCLIA [id number] [email or web address] [facility] [place] [address] [place] Prot/Creat Uron 09-28-2024 Creatinine (U) [Mass/Vol] 239.9 mg/dL Normal 20.0-300.0 [facility] Comment on above: Order Comment: Speci men Type: URINE SPECIMENOrdering Facility: [facility] Address: [place] [address] Performed By: #### 2 890-2, UACR ####[facility] LABCLIA [id number] [address] [address] [place] Protein/Creatinine (U) [Mass ratio] 0.67 mg/mg High <0.15 [facility] Comment on above: Order Comment: Speci men Type: URINE SPECIMENOrdering Facility: [facility] Address: [place] [address] Result Comment: Adul t Proteinuria Categories:<0.15 mg/mg is considered normal to mildly increased0.15 - 0.50 mg/mg is considered moderately increased>0.50 mg/mg is considered severely increasedKDIGO. (2013). KDIGO 2012 Clinical Practice Guideline for the Evaluation and Management of Chronic Kidney Disease. Official Journal of the International Society of Nephrology, 3(1), 1-150. Performed By: #### 2 890-2, UACR ####[facility] LABCLIA [id number] [address] [place] [address] [place] Protein/Creatinine (U) [Mass ratio]on 09-28-2024 Protein (U) [Mass/Vol] 161 mg/dL High 0-20 [facility] Comment on above: Order Comment: Speci men Type: URINE SPECIMENOrdering Facility: [facility] Address: [place] [address] Performed By: #### 2 890-2, UACR ####[facility] LABCLIA [id number] [address] [address] [place] Renal function 2000 panelon 09-28-2024 Albumin [Mass/Vol] 4.1 g/dL Normal 3.9-4.9 [facility] Comment on above: Order Comment: Speci men Type: BLOOD SPECIMENOrdering Facility: [facility] Address: [place] [address] Performed By: #### 1 9123-9, 2731-8, 20605-8 ####[facility] LABIA [id number] [address] [address] [place] Anion gap [Moles/Vol] 12 mmol/L Normal 8-15 [facility] Comment on above: Order Comment: Speci men Type: BLOOD SPECIMENOrdering Facility: [facility] Address: [place] [address] Performed By: #### 1 9123-9, 273-8, 22986-6 ####[facility] LABIA [id number] [address] [address] [place] Calcium [Mass/Vol] 10.0 mg/dL Normal 8.5-10.2 [facility] Comment on above: Order Comment: Speci men Type: BLOOD SPECIMENOrdering Facility: GISELLA Tucker Address: [place] [address] Performed By: #### 1 9123-9, 273-8, 04154-0 ####[facility] [id number] [address] [address] [place] Chloride [Moles/Vol] 101 mmol/L Normal 98-107 [facility] Comment on above: Order Comment: Speci men Type: BLOOD SPECIMENOrdering Facility: [facility] BobbyNewmarket Address: [place] [address] Performed By: #### 1 9123-9, 2730-12, ####[facility] LABIA [id number] [address] [address] [place] CO2 [Moles/Vol] 24 mmol/L Normal 22-30 [facility] Comment on above: Order Comment: Speci men Type: BLOOD SPECIMENOrdering Facility: [facility] Address: [place] [address] Performed By: #### 1 9123-9, 2730-12, ####[facility] LABIA [id number] [address] [address] [place] Creatinine [Mass/Vol] 1.50 mg/dL High 0.58-0.96 [facility] Comment on above: Order Comment: Speci men Type: BLOOD SPECIMENOrdering Facility: [facility] Address: [place] [address] Performed By: #### 1 9123-9, 2730-12, ####[facility] LABIA [id number] [address] [address] [place] Creatinine and Glomerular filtration rate.predicted panel (S/P/Bld) 38 mL/min/1.73m??? Low >=60 [facility] Comment on above: Order Comment: Speci [facility] Type: BLOOD SPECIMENOrdering Facility: [facility] Address: [place] [address] Result Comment: Hyun mated Glomerular Filtration Rate [...] accurately reflect actual GFR. Performed By: #### 1 9123-9, 2730-12, 43253-5 ####[facility] LABCLIA [id number] [address] [address] [place] Glucose [Mass/Vol] 106 mg/dL High 74-99 [facility] Comment on above: Order Comment: Speci men Type: BLOOD SPECIMENOrdering Facility: [facility] Address: [place] [address] Result Comment: The [place] [employer] (ADA) provides guidance for cutoff [...] Standards of Medical Care in Diabetes 2016, [place] [employer]. Diabetes Care. 2016.39(Suppl 1). Performed By: #### 1 9123-9, 2731-8, 03852-0 ####[facility] LABCLIA [id number] [place] [address] [place] Phosphate [Mass/Vol] 3.2 mg/dL Normal 2.7-4.8 [facility] Comment on above: Order Comment: Speci lobo Type: BLOOD SPECIMENOrdering Facility: [facility] Address: [place] [address] Performed By: #### 1 9123-9, 2731-8, 93299-0 ####[facility] LABIA [id number] [place] [address] [place] Potassium [Moles/Vol] 4.3 mmol/L Normal 3.7-5.1 [facility] Comment on above: Order Comment: Speci men Type: BLOOD SPECIMENOrdering Facility: [facility] Address: [place] [address] Performed By: #### 1 9123-9, 2731-8, 35447-6 ####[facility] LABCLIA [id number] [address] [address] [place] Sodium [Moles/Vol] 137 mmol/L Normal 136-144 [facility] Comment on above: Order Comment: Speci men Type: BLOOD SPECIMENOrdering Facility: [facility] Almanzan Address: [place] [address] Performed By: #### 1 9123-9, 2731-8, 15433-7 ####[facility] LABCLIA [id number] [place] [address] [place] Urea nitrogen [Mass/Vol] 24 mg/dL High 7-21 [facility] Comment on above: Order Comment: Speci men Type: BLOOD SPECIMENOrdering Facility: [facility] Almanzan Address: [place] [address] Performed By: #### 1 9123-9, 2731-8, 60865-3 ####[facility] LABCLIA [id number] [place] [address] [place] Comprehensive metabolic 2000 panelon 09-23-2024 Albumin [Mass/Vol] 3.9 g/dL Normal 3.9-4.9 [facility] Comment on above: Order Comment: Speci men Type: BLOOD SPECIMENOrdering Facility: [facility] Address: [address] [place] [address] Performed By: #### 2 4323-8 ####[facility] LABCLIA [id number] [address] [address] [place] ALP [Catalytic activity/Vol] 118 U/L Normal 34-123 [facility] Comment on above: Order Comment: Speci men Type: BLOOD SPECIMENOrdering Facility: [facility] Address: [facility] [place] [address] Performed By: #### 2 4323-8 ####[facility] LABCLIA [id number] [address] [address] [place] ALT [Catalytic activity/Vol] 12 U/L Normal 7-38 [facility] Comment on above: Order Comment: Speci men Type: BLOOD SPECIMENOrdering Facility: [facility] Address: [address] [place] [address] Performed By: #### 2 4323-8 ####[facility] LABCLIA [id number] [address] [address] [place] Anion gap [Moles/Vol] 14 mmol/L Normal 8-15 [facility] Comment on above: Order Comment: Speci men Type: BLOOD SPECIMENOrdering Facility: [facility] Address: [address] [place], [place] [address] Performed By: #### 2 4323-8 ####[facility] LABCLIA [id number] [address], [facility]95 [place] AST [Catalytic activity/Vol] 21 U/L Normal 13-35 [facility] Comment on above: Order Comment: Speci men Type: BLOOD SPECIMENOrdering Facility: [facility] Address: [address] [place], [place] [address] Performed By: #### 2 4323-8 ####[facility] LABCLIA [id number] [address] [address] [place] Bilirubin [Mass/Vol] 0.4 mg/dL Normal 0.2-1.3 [facility] [facility] Comment on above: Order Comment: Speci men Type: BLOOD SPECIMENOrdering Facility: [facility] Address: [address] [place], [place] [address] Performed By: #### 2 4323-8 ####[facility] LABCLIA [id number] [address] [place] [address] [place] Calcium [Mass/Vol] 10.5 mg/dL High 8.5-10.2 [facility] Comment on above: Order Comment: Speci men Type: BLOOD SPECIMENOrdering Facility: [facility] Address: [address] [place], [place] [address] Performed By: #### 2 4323-8 ####[facility] LABCLIA [id number] [place] [address] [place] Chloride [Moles/Vol] 101 mmol/L Normal 98-107 [facility] Comment on above: Order Comment: Speci men Type: BLOOD SPECIMENOrdering Facility: [facility] Address: [address] [place] [address] Performed By: #### 2 4323-8 ####[facility] LABCLIA [id number] [place] [address] [place] CO2 [Moles/Vol] 21 mmol/L Low 22-30 [facility] Comment on above: Order Comment: Speci men Type: BLOOD SPECIMENOrdering Facility: [facility] Address: [address] [place] [address] Performed By: #### 2 4323-8 ####[facility] LABIA [id number] [place] [address] [place] Creatinine [Mass/Vol] 1.42 mg/dL High 0.58-0.96 [facility] Comment on above: Order Comment: Speci men Type: BLOOD SPECIMENOrdering Facility: [facility] Address: [address] [place] [address] Performed By: #### 2 4323-8 ####[facility] LABIA [id number] [address] [place] [facility] Creatinine and Glomerular filtration rate.predicted panel (S/P/Bld) 41 mL/min/1.73m??? Low >=60 [facility] Comment on above: Order Comment: Speci men Type: BLOOD SPECIMENOrdering Facility: [facility] Address: [address] [place] [address] Result Comment: Hyun mated Glomerular Filtration Rate [...] actual GFR. Performed By: #### 2 4323-8 ####[facility] [id number] [place] [id number] [place] Glucose [Mass/Vol] 92 mg/dL Normal 74-99 [facility] Comment on above: Order Comment: Speci men Type: BLOOD SPECIMENOrdering Facility: [facility] Address: [address] [place] [address] Result Comment: The [place] Diabetes Association (ADA) provides guidance for cutoff [...] Standards of Medical Care in Diabetes 2016, [place] [employer]. Diabetes Care. 2016.39(Suppl 1). Performed By: #### 2 4323-8 ####[facility] LABIA [id number] [place] [id number] [place] Potassium [Moles/Vol] 4.4 mmol/L Normal 3.7-5.1 [facility] Comment on above: Order Comment: Speci men Type: BLOOD SPECIMENOrdering Facility: [facility] Address: [address] [place] [address] Performed By: #### 2 4323-8 ####[facility] [id number] [place] [id number] [place] Protein [Mass/Vol] 7.5 g/dL Normal 6.3-8.0 [facility] Comment on above: Order Comment: Speci men Type: BLOOD SPECIMENOrdering Facility: [facility] Address: [address] [place] [address] Performed By: #### 2 4323-8 ####[facility] LABCLIA [id number] [address] [address] [place] Sodium [Moles/Vol] 136 mmol/L Normal 136-144 [facility] Comment on above: Order Comment: Speci men Type: BLOOD SPECIMENOrdering Facility: [facility] Address: [address] [place] [address] [place] [address] Performed By: #### 2 4323-8 ####[facility] LABCLIA [id number] [place] [address] [place] Urea nitrogen [Mass/Vol] 25 mg/dL High 7-21 [facility] Comment on above: Order Comment: Speci men Type: BLOOD SPECIMENOrdering Facility: [facility] Address: [address] [place], [place] [address] [address] Performed By: #### 2 4323-8 ####[facility] LABIA [id number] [place] [id number] [place] CNOVon 09-22-2024 CNOV Normal [facility] CNOVon 09-11-2024 CNOV Normal [facility] No Panel Informationon 09-11 Radiology Study observation (narrative) [facility] XR FACIAL BONES 3V AP/LAT/WA TERSon 09-11-2024 XR FACIAL BONES 3V AP/LAT/DE JESUS Normal [facility] XR Facial bones 3 Viewson IMPRESSION: Questionable nondisplaced fracture of the left mandibular ramus versus artifact. Correlate with physical examination for possible point tenderness in this region. If clinically indicated, further evaluation with CT may be made. Fermenter Operator: PSCB Transcribe Date/Time: Sep 11 2024 1:34P Dictated by : JIMENA CHI MD This examination was interpreted and the report reviewed and electronically signed by: JIMENA CHI MD on Sep 11 2024 1:37PM [facility] DIVISION OF RADIOLOGY * * *Final [...] sinuses grossly clear. DIVISION OF RADIOLOGY Provider, [facility] - 09/11/2024 * * *Final [...] further evaluation with CT may be made. Fermenter Operator: JUAN Transcribe Date/Time: Sep 11 2024 1:34P Dictated by : JIMENA CHI MD This examination was interpreted and the report reviewed and electronically signed by: JIMENA CHI MD on Sep 11 2024 1:37PM EST [facility] XR HIP 3V PELV+ AP/LAT RTon 09-11-2024 XR HIP 3V PELV+ AP/LAT RT Normal [facility] XR LUMBAR 3V AP/LAT/L5-S1on 09-11-2024 XR LUMBAR 3V AP/LAT/L5-S1 Normal [facility] XR Lumbar spine 3 Viewson IMPRESSION: Age indeterminate mild superior endplate compression deformity of L2 though new when compared with 2022 CT abdomen pelvis. Fermenter Operator: JUAN Transcribe Date/Time: Sep 11 2024 1:30P Dictated by : JIMENA CHI MD This examination was interpreted and the report reviewed and electronically signed by: JIMENA CHI MD on Sep 11 2024 1:33PM [facility] OF RADIOLOGY * * *Final [...] deformity of T11. DIVISION OF RADIOLOGY Provider, [facility] - 09/11/2024 * * *Final [...] when compared with 2022 CT abdomen pelvis. Fermenter Operator: [facility]PITALKeysha Transcribe Date/Time: Sep 11 2024 1:30P Dictated by : JIMENA CHI MD This examination was interpreted and the report reviewed and electronically signed by: JIMENA CHI MD on Sep 11 2024 1:33PM EST [facility] XR Pelvis and Hip - right AP and Lateral frogon 09-11-2024 IMPRESSION: No radiographic evidence of acute osseous injury. Fermenter Operator: JUAN Transcribe Date/Time: Sep 11 2024 1:28P Dictated by : JIMENA CHI MD This examination was interpreted and the report reviewed and electronically signed by: JIMENA CHI MD on Sep 11 2024 1:30PM [facility] DIVISION OF RADIOLOGY * * *Final [...] the left pelvis. DIVISION OF RADIOLOGY Provider, [facility] - 09/11/2024 * * *Final [...] No radiographic evidence of acute osseous injury. Fermenter Operator: MANJULAB Transcribe Date/Time: Sep 11 2024 1:28P Dictated by : JIMENA CHI MD This examination was interpreted and the report reviewed and electronically signed by: JIMENA CHI MD on Sep 11 2024 1:30PM EST [facility] XR Pelvis and Hip - right AP and Lateral frogOrdered By: Ccf Provider on 09-11-2024 [facility] CNOVon 08-31-2024 CNOV Normal [facility] CNOV Normal [facility] TSH SerPl-aCncon 08-31-2024 TSH Qn 1.210 m[IU]/L Normal 0.270-4.20 0 [facility] Comment on above: Order Comment: Speci men Type: BLOOD SPECIMENOrdering Facility: [facility] Address: [address] [place] [address] Performed By: #### 3 016-3 ####[facility] LABCLIA [id number] [place] [address] [place] CHYNA SCREENING W TOMOon 08-21 CHYNA SCREENING W JENN Normal [facility] CNPNon 08-18-2024 CNPN Normal [facility] Bacteria Ur Culton Bacteria identified Cx Nom (U) Normal [facility] Comment on above: Performed By: #### 6 30-4 ####[facility] LABCLIA [id number] [place] [address] [place] Urinalysis complete panel (U )on 08-17-2024 Bacteria LM.HPF (Urine sed) [#/Area] Negative Normal Negative [facility] Comment on above: Order Comment: Speci men Type: URINE SPECIMENOrdering Facility: [facility] Address: [address] [place] [address] Performed By: #### 2 4356-8 ####[facility] LABCLIA [id number] [place] [id number] [place] Bilirubin Ql (U) Negative Normal Negative [facility] Comment on above: Order Comment: Speci men Type: URINE SPECIMENOrdering Facility: [facility] Address: [address] [place] [address] Performed By: #### 2 4356-8 ####[facility] LABCLIA [id number] [address] [place] [address] [place] Clarity (Unsp spec) Cloudy Abnormal Clear [facility] Comment on above: Order Comment: Speci men Type: URINE SPECIMENOrdering Facility: [facility] Address: [address] [place] [address] Performed By: #### 2 4356-8 ####[facility] LABCLIA [id number] [address], [facility]95 [place] Color (U) Yellow Normal Yellow [facility] Comment on above: Order Comment: Speci men Type: URINE SPECIMENOrdering Facility: [facility] Address: [address] [place] [address] Performed By: #### 2 4356-8 ####[facility] LABCLIA [id number] [place] [address] [place] Epithelial cells LM.HPF (Urine sed) [#/Area] None Seen Normal [facility] Comment on above: Order Comment: Speci men Type: URINE SPECIMENOrdering Facility: [facility] Address: [address] [place] [address] Performed By: #### 2 4356-8 ####[facility] LABCLIA [id number] [place] [id number] [place] Glucose Test strip (U) [Mass/Vol] Negative Normal Negative [facility] Comment on above: Order Comment: Speci men Type: URINE SPECIMENOrdering Facility: [facility] Address: [address] [place] [address] Performed By: #### 2 4356-8 ####[facility] LABCLIA [id number] [place] [id number] [place] Hemoglobin Ql (U) 3+ Abnormal Negative [facility] Comment on above: Order Comment: Speci men Type: URINE SPECIMENOrdering Facility: [facility] Address: [address] [place] [address] Performed By: #### 2 4356-8 ####[facility] LABCLIA [id number] [address], [place] [address] [place] Hyaline casts (Urine sed) [#/Area] 1-3 /LPF Abnormal 0 /LPF [facility] Comment on above: Order Comment: Speci men Type: URINE SPECIMENOrdering Facility: [facility] Address: [address] [place] [address] Performed By: #### 2 4356-8 ####[facility] LABCLIA [id number] [address], [place] [address] [place] Ketones Ql (U) Negative Normal Negative [facility] Comment on above: Order Comment: Speci men Type: URINE SPECIMENOrdering Facility: [facility] Address: [address] [place] [address] Performed By: #### 2 4356-8 ####[facility] LABCLIA [id number] [address], [place] [address] [place] Leukocyte esterase Test strip Ql (U) 2+ Abnormal Negative [facility] Comment on above: Order Comment: Speci men Type: URINE SPECIMENOrdering Facility: [facility] Address: [address] [place] [address] Performed By: #### 2 4356-8 ####[facility] LABCLIA [id number] [place] [id number] [place] Nitrite Ql (U) Negative Normal Negative [facility] Comment on above: Order Comment: Speci men Type: URINE SPECIMENOrdering Facility: [facility] Address: [address] [place] [address] Performed By: #### 2 4356-8 ####[facility] LABCLIA [id number] [address], [facility]95 [place] pH (U) 6.0 [pH] Normal <8.5 [facility] Comment on above: Order Comment: Speci men Type: URINE SPECIMENOrdering Facility: [facility] Address: [address] [place] [address] Performed By: #### 2 4356-8 ####[facility] LABCLIA [id number] [place] [address] [place] Protein (U) [Mass/Vol] 1+ Abnormal Negative [facility] Comment on above: Order Comment: Speci men Type: URINE SPECIMENOrdering Facility: [facility] Address: [address] [place] [address] Performed By: #### 2 4356-8 ####[facility] LABCLIA [id number] [place] [address] [place] RBC LM.HPF (Urine sed) [#/Area] /[HPF] Abnormal 0-2 /HPF [facility] Comment on above: Order Comment: Speci men Type: URINE SPECIMENOrdering Facility: [facility] Address: [address] [place] [address] Performed By: #### 2 4356-8 ####[facility] LABIA [id number] [place] [address] [place] Specific gravity (U) [Rel density] 1.019 Normal 1.005-1.03 0 [facility] Comment on above: Order Comment: Speci men Type: URINE SPECIMENOrdering Facility: [facility] Address: [address] [place] [address] Performed By: #### 2 4356-8 ####[facility] LABCLIA [id number] [place] [id number] [place] Urobilinogen Ql (U) 0.2 EU/dL Normal 0.2-1.0 EU/dL [facility] Comment on above: Order Comment: Speci men Type: URINE SPECIMENOrdering Facility: [facility] Address: [address] [place] [address] Performed By: #### 2 4356-8 ####[facility] LABCLIA [id number] [place] [id number] [place] WBC LM.HPF (Urine sed) [#/Area] /[HPF] Abnormal 0-5 /HPF [facility] Comment on above: Order Comment: Speci men Type: URINE SPECIMENOrdering Facility: [facility] Address: [address] [place] [address] Performed By: #### 2 4356-8 ####[facility] [id number] [place] [id number] [place] US KIDNEY/BLADDERon 08-15-19 25 US KIDNEY/BLADDER Normal [facility] Bacteria Ur Culton Bacteria identified Cx Nom (U) Abnormal [facility] Comment on above: Performed By: #### 6 30-4 ####[facility] LABIA [id number] [place] [id number] [place] CNOVon 08-09-2024 CNOV Normal [facility] UA DIP, URINE (POC)on 2024 BILIRUBIN UA (POCT) Negative Negative [facility] CLARITY UA (POCT) Clear [facility] COLOR UA (POCT) Yellow [facility] GLUCOSE UA (POCT) Negative Negative mg/dL [facility] Hemoglobin Ql (U) Large Abnormal Negative [facility] Interpretation and review of laboratory results Abnormal [facility] KETONE UA (POCT) Negative Negative mg/dL [facility] LEUKOCYTES UA (POCT) Large Abnormal Negative [facility] NITRITE UA (POCT) Positive Abnormal Negative [facility] PH UA (POCT) 6 4.5 - 8.0 [facility] Protein Ql (U) 100 mg/dL Abnormal Negative [facility] SPECIFIC GRAVITY UA (POCT) 1.025 1.005 - 1.030 [facility] UROBILINOGEN UA (POCT) 0.2 Sallie l E.U./dL [facility] Location:[facility], [address] [place], [address] [facility] POINT OF CARE [facility] CNPNon 08-08-2024 CNPN Normal [facility] 08-07-2024 [facility] Telephone (AKURFL) EREN MERCHANT ([id number]) 1960 F Date Time Provider Department 08/07/24 [...] Smear of Vagina and Vagin* 02/06/2010 Dyspareunia [[id number]] 05/03/2006 02/06/2010 Fx Sacrum/Coccyx-Closed [S32.10XA, S32.2XXA] 05/31/2007 [...] [facility] CNOVon 08-03-2024 CNOV Normal [facility] CBC W Auto Differential pane l (Bld)on 07-31-2024 Basophils (Bld) [#/Vol] 10*3/uL Normal <0.11 [facility] Comment on above: Order Comment: Speci men Type: BLOOD SPECIMENOrdering Facility: [facility] Address: [address] [place] [address] [place] [address] Performed By: #### 5 7021-8, 4536-7 ####[facility] LABCLIA [id number] [place] [facility] [address], [facility]95 [place] Basophils/100 WBC (Bld) 0.2 % Normal [facility] Comment on above: Order Comment: Speci men Type: BLOOD SPECIMENOrdering Facility: [facility] Address: [address] [place] [address] Performed By: #### 5 7021-8, 7 ####[facility] LABCLIA [id number] [facility] [facility] [address], [facility]95 [place] Differential cell count method Nom (Bld) Auto Normal [facility] Comment on above: Order Comment: Speci men Type: BLOOD SPECIMENOrdering Facility: [facility] Address: [address] [place] [address] Performed By: #### 5 7021-8, 7 ####[facility] LABCLIA [id number] [address], [place] [address] [place] Eosinophils (Bld) [#/Vol] 0.03 10*3/uL Normal <0.46 [facility] Comment on above: Order Comment: Speci men Type: BLOOD SPECIMENOrdering Facility: [facility] Address: [address] [place] [address] Performed By: #### 5 7021-8, 4536-11 ####[facility] LABCLIA [id number] [place] [facility]OMMUN[facility]K [address], [facility]95 [place] Eosinophils/100 WBC (Bld) 0.3 % Normal [facility] Comment on above: Order Comment: Speci men Type: BLOOD SPECIMENOrdering Facility: [facility] Address: [address] [place] [address] Performed By: #### 5 7021-8, 7 ####[facility] LABCLIA [id number] [facility] [facility] [address], [facility]95 [place] Erythrocyte distribution width (RBC) [Ratio] 14.4 % Normal 11.5-15.0 [facility] Comment on above: Order Comment: Speci men Type: BLOOD SPECIMENOrdering Facility: [facility] Address: [address] [place] [address] Performed By: #### 5 7021-8, 4536-7 ####[facility] LABCLIA [id number] [place] [address] [place] Hematocrit (Bld) [Volume fraction] 38.9 % Normal 36.0-46.0 [facility] Comment on above: Order Comment: Speci men Type: BLOOD SPECIMENOrdering Facility: [facility] Address: [address] [place] [address] Performed By: #### 5 7021-8, 4536-7 ####[facility] LABCLIA [id number] [place] [address] [place] Hemoglobin (Bld) [Mass/Vol] 12.2 g/dL Normal 11.5-15.5 [facility] Comment on above: Order Comment: Speci men Type: BLOOD SPECIMENOrdering Facility: [facility] Address: [address] [place] [address] Performed By: #### 5 7021-8, 4536-7 ####[facility] LABIA [id number] [place] [address] [place] Immature granulocytes (Bld) [#/Vol] 0.03 10*3/uL Normal <0.10 [facility] Comment on above: Order Comment: Speci men Type: BLOOD SPECIMENOrdering Facility: [facility] Address: [address] [place] [address] Performed By: #### 5 7021-8, 4536-7 ####[facility] LABCLIA [id number] [place] [address] [place] Immature granulocytes/100 WBC (Bld) 0.3 % Normal [facility] Comment on above: Order Comment: Speci men Type: BLOOD SPECIMENOrdering Facility: [facility] Address: [address] [place] [address] Performed By: #### 5 7021-8, 4537-7 ####[facility] LABCLIA [id number] [place] [address] [place] Lymphocytes (Bld) [#/Vol] 2.51 10*3/uL Normal 1.00-4.00 [facility] Comment on above: Order Comment: Speci men Type: BLOOD SPECIMENOrdering Facility: [facility] Address: [address] [place] [address] Performed By: #### 5 7021-8, 4537-7 ####[facility] LABCLIA [id number] [place] [address] [place] Lymphocytes/100 WBC (Bld) 23.9 % Normal [facility] Comment on above: Order Comment: Speci men Type: BLOOD SPECIMENOrdering Facility: [facility] Address: [address] [place] [address] Performed By: #### 5 7021-8, 4537-7 ####[facility] LABIA [id number] [place] [address] [place] MCH (RBC) [Entitic mass] 26.1 pg Normal 26.0-34.0 [facility] Comment on above: Order Comment: Speci men Type: BLOOD SPECIMENOrdering Facility: [facility] Address: [address] [place] [address] Performed By: #### 5 7021-8, 4537-7 ####[facility] LABIA [id number] [place] [address] [place] MCHC (RBC) [Mass/Vol] 31.4 g/dL Normal 30.5-36.0 [facility] Comment on above: Order Comment: Speci men Type: BLOOD SPECIMENOrdering Facility: [facility] Address: [address] [place] [address] Performed By: #### 5 7021-8, 4536-11 ####[facility] LABCLIA [id number] [place] [address] [place] MCV (RBC) [Entitic vol] 83.1 fL Normal 80.0-100.0 [facility] Comment on above: Order Comment: Speci men Type: BLOOD SPECIMENOrdering Facility: [facility] Address: [address] [place] [address] Performed By: #### 5 7021-8, 4536-11 ####[facility] LABCLIA [id number] [place] [address] [place] Monocytes (Bld) [#/Vol] 0.82 10*3/uL Normal <0.87 [facility] Comment on above: Order Comment: Speci men Type: BLOOD SPECIMENOrdering Facility: [facility] Address: [address] [place] [address] Performed By: #### 5 7021-8, 4536-11 ####[facility] LABCLIA [id number] [place] [address] [place] Monocytes/100 WBC (Bld) 7.8 % Normal [facility] Comment on above: Order Comment: Speci men Type: BLOOD SPECIMENOrdering Facility: [facility] Address: [address] [place] [address] Performed By: #### 5 7021-8, 4536-11 ####[facility] LABCLIA [id number] [place] [id number] [place] Neutrophils (Bld) [#/Vol] 7.08 10*3/uL Normal 1.45-7.50 [facility] Comment on above: Order Comment: Speci men Type: BLOOD SPECIMENOrdering Facility: [facility] Address: [address] [place] [address] Performed By: #### 5 7021-8, 4536-11 ####[facility] LABCLIA [id number] [place] [id number] [place] Neutrophils/100 WBC (Bld) 67.5 % Normal [facility] Comment on above: Order Comment: Speci men Type: BLOOD SPECIMENOrdering Facility: [facility] Address: [address] [place] [address] Performed By: #### 5 7021-8, 4537-7 ####[facility] LABCLIA [id number] [place] [address] [place] Nucleated RBC (Bld) [#/Vol] 10*3/uL Normal <0.01 [facility] Comment on above: Order Comment: Speci men Type: BLOOD SPECIMENOrdering Facility: [facility] Address: [address] [place] [address] Performed By: #### 5 7021-8, 4536-7 ####[facility] [facility] LABIA [id number] [place] [address] [place] Nucleated RBC/100 WBC (Bld) [Ratio] 0.0 /100 WBC Normal [facility] Comment on above: Order Comment: Speci men Type: BLOOD SPECIMENOrdering Facility: [facility] Address: [address] [place] [address] Performed By: #### 5 7021-8, 4536-7 ####[facility] LABIA [id number] [place] [address] [place] Platelet mean volume (Bld) [Entitic vol] 10.2 fL Normal 9.0-12.7 [facility] Comment on above: Order Comment: Speci men Type: BLOOD SPECIMENOrdering Facility: [facility] Address: [address] [place] [address] Performed By: #### 5 7021-8, 4536-7 ####[facility] LABIA [id number] [place] [id number] [place] Platelets (Bld) [#/Vol] 332 10*3/uL Normal 150-400 [facility] Comment on above: Order Comment: Speci men Type: BLOOD SPECIMENOrdering Facility: [facility] Address: [address] [place] [address] Performed By: #### 5 7021-8, 4537-7 ####[facility] LABCLIA [id number] [place] [address] [place] RBC (Bld) [#/Vol] 4.68 10*6/uL Normal 3.90-5.20 [facility] Comment on above: Order Comment: Speci men Type: BLOOD SPECIMENOrdering Facility: [facility] Address: [address] [place] [address] Performed By: #### 5 7021-8, 4537-7 ####[facility] LABCLIA [id number] [place] [address] [place] WBC (Bld) [#/Vol] 10.49 10*3/uL Normal 3.70-11.00 [facility] Comment on above: Order Comment: Speci men Type: BLOOD SPECIMENOrdering Facility: [facility] Address: [address] [place] [address] Performed By: #### 5 7021-8, 4537-7 ####[facility] LABCLIA [id number] [place] [address] [place] CK SerPl-cCncon 07-31-2024 CK [Catalytic activity/Vol] 70 U/L Normal 42-196 [facility] Comment on above: Order Comment: Speci men Type: BLOOD SPECIMENOrdering Facility: [facility] Address: [address] [place] [address] Performed By: #### 2 157-6, 1987-09 ####[facility] LABCLIA [id number] [place] [id number] [place] CNOVon 07-31-2024 CNOV Normal [facility] CRP SerPl-mCncon 07-31-2024 CRP [Mass/Vol] mg/L Normal <0.9 [facility] Comment on above: Order Comment: Speci men Type: BLOOD SPECIMENOrdering Facility: [facility] Address: [address] [place] [address] Performed By: #### 2 157-6, 1988- ####[facility] LABCLIA [id number] [place] [address] [place] ESR Westergren method (Bld) [Velocity]on 07-31-2024 ESR (Bld) [Velocity] 17 mm/h Normal 0-20 [facility] Comment on above: Order Comment: Speci men Type: BLOOD SPECIMENOrdering Facility: [facility] Address: [address] [place] [address] Performed By: #### 5 7021-8, 4537-7 ####[facility] LABCLIA [id number] [place] [address] [place] Basic metabolic 2000 panelon 07-19-2024 Anion gap [Moles/Vol] 9 mmol/L Normal 8-15 [facility] Comment on above: Order Comment: Speci men Type: BLOOD SPECIMENOrdering Facility: [facility] Address: [address] [place] [address] Performed By: #### 2 4321-2 ####[facility] MILLSAILAJAWDEBBIEA [id number] [place] [address] [place] Calcium [Mass/Vol] 10.1 mg/dL Normal 8.5-10.2 [facility] Comment on above: Order Comment: Speci men Type: BLOOD SPECIMENOrdering Facility: [facility] Address: [address] [place] [address] Performed By: #### 2 4321-2 ####[facility] RAFAEL MILLTOWNCLIA [id number] [place] [address] [place] Chloride [Moles/Vol] 101 mmol/L Normal 98-107 [facility] Comment on above: Order Comment: Speci men Type: BLOOD SPECIMENOrdering Facility: [facility] Address: [address] [place] [address] Performed By: #### 2 4321-2 ####[facility] MEDICAL CENTERNCLI [id number] [place] [address] [place] CO2 [Moles/Vol] 24 mmol/L Normal 22-30 [facility] Comment on above: Order Comment: Speci men Type: BLOOD SPECIMENOrdering Facility: [facility] Address: [address] [place] [address] Performed By: #### 2 4321-2 ####[facility]IT[facility] [id number] [place] [address] [place] Creatinine [Mass/Vol] 1.56 mg/dL High 0.58-0.96 [facility] Comment on above: Order Comment: Speci men Type: BLOOD SPECIMENOrdering Facility: [facility] Address: [address] [place] [address] Performed By: #### 2 4321-2 ####[facility] HOSPITALLIA [id number] [place] [address] [place] Creatinine and Glomerular filtration rate.predicted panel (S/P/Bld) 37 mL/min/1.73m??? Low >=60 [facility] Comment on above: Order Comment: Speci men Type: BLOOD SPECIMENOrdering Facility: [facility] [place] Address: [address] [place] [address] Result Comment: Hyun mated Glomerular Filtration Rate [...] Performed By: #### 2 4321-2 ####[facility] H[facility]ITALTRISTA [id number] [place] [address] [place] Glucose [Mass/Vol] 68 mg/dL Low 74-99 [facility] Comment on above: Order Comment: Melinda diamond Type: BLOOD SPECIMENOrdering Facility: [facility] Address: [address] [place] [address] Result Comment: The [place] Diabetes Association (ADA) provides guidance for cutoff [...] Standards of Medical Care in Diabetes 2016, [place] Diabetes Association. Diabetes Care. 2016.39(Suppl 1). Performed By: #### 2 4321-2 ####[facility] MEDICAL CENTERKAYLEN [id number] [place] [address] [place] Potassium [Moles/Vol] 5.0 mmol/L Normal 3.7-5.1 [facility] Comment on above: Order Comment: Melinda diamond Type: BLOOD SPECIMENOrdering Facility: [facility] Address: [address] [place] [address] Performed By: #### 2 4321-2 ####[facility] [id number] [place] [id number] [place] Sodium [Moles/Vol] 134 mmol/L Low 136-144 [facility] Comment on above: Order Comment: Speci men Type: BLOOD SPECIMENOrdering Facility: [facility]PITALYumiko Schultz Address: [address] [facility], [address], [place] [address] Performed By: #### 2 4321-2 ####[facility] RAFAEL MARCIAL [id number] [place] [address] [place] Urea nitrogen [Mass/Vol] 41 mg/dL High 7-21 [facility] Comment on above: Order Comment: Speci men Type: BLOOD SPECIMENOrdering Facility: [facility] Lara Schultz Address: [address] [facility], [address], [place] [address] Performed By: #### 2 4321-2 ####[facility] RAFAEL FRANKLYNPHILADELPHIANCLIYumiko [id number] [place] [address] [place] CNOVon 07-10-2024 CNOV Normal [facility] Renal function 2000 panelon 07-10-2024 Albumin [Mass/Vol] 4.2 g/dL Normal 3.9-4.9 [facility] Comment on above: Order Comment: Speci men Type: BLOOD SPECIMENOrdering Facility: [facility]OSPITALYumiko Sch[facility] Address: [address] [facility], [facility], [place] [address] Performed By: #### 2 4362-6 ####[facility] LABCLIA [id number] [facility] CLINICD [address] [address] [place] Anion gap [Moles/Vol] 10 mmol/L Normal 8-15 [facility] Comment on above: Order Comment: Speci men Type: BLOOD SPECIMENOrdering Facility: [facility] Lara Schultz Address: [address] [facility], [address], [place] [address] Performed By: #### 2 4362-6 ####[facility] LABCLIA [id number] [facility] [address] [address] [place] Calcium [Mass/Vol] 9.9 mg/dL Normal 8.5-10.2 [facility] Comment on above: Order Comment: Speci men Type: BLOOD SPECIMENOrdering Facility: [facility] Lara Schultz Address: [address], [address], [place] [address] Performed By: #### 2 4362-6 ####[facility] LABCLIA [id number] [facility]INICD [facility]USK [address] [place] [address] [place] Chloride [Moles/Vol] 105 mmol/L Normal 98-107 [facility] Comment on above: Order Comment: Speci men Type: BLOOD SPECIMENOrdering Facility: [facility] Lara Schultz Address: [address] [facility], [address], [place] [address] Performed By: #### 2 4362-6 ####[facility] LABCLIA [id number] [address] [address] [place] CO2 [Moles/Vol] 21 mmol/L Low 22-30 [facility] Comment on above: Order Comment: Speci men Type: BLOOD SPECIMENOrdering Facility: [facility] Lara Schultz Address: [address] [facility], [address], [place] [address] Performed By: #### 2 4362-6 ####[facility] LABCLIA [id number] [address] [place] [address] [place] Creatinine [Mass/Vol] 1.87 mg/dL High 0.58-0.96 [facility] Comment on above: Order Comment: Speci men Type: BLOOD SPECIMENOrdering Facility: [facility] Lara Schultz Address: [address], [address], [place] [address] Performed By: #### 2 4362-6 ####[facility] LABCLIA [id number] [address] [address] [place] Creatinine and Glomerular filtration rate.predicted panel (S/P/Bld) 29 mL/min/1.73m??? Low >=60 [facility] Comment on above: Order Comment: Speci men Type: BLOOD SPECIMENOrdering Facility: [facility] Lara Schultz Address: [address] [place] [address] Result Comment: Hyun mated Glomerular Filtration Rate [...] actual GFR. Performed By: #### 2 4362-6 ####[facility] LABIA [id number] [address] [address] [place] Glucose [Mass/Vol] 96 mg/dL Normal 74-99 [facility] Comment on above: Order Comment: Speci men Type: BLOOD SPECIMENOrdering Facility: [facility] Address: [address] [place] [address] Result Comment: The [place] Diabetes Association (ADA) provides guidance for cutoff [...] Standards of Medical Care in Diabetes 2016, [place] Diabetes Association. Diabetes Care. 2016.39(Suppl 1). Performed By: #### 2 4362-6 ####[facility] LABIA [id number] [address] [address] [place] Phosphate [Mass/Vol] 3.8 mg/dL Normal 2.7-4.8 [facility] Comment on above: Order Comment: Speci men Type: BLOOD SPECIMENOrdering Facility: [facility] Address: [address] [place] [address] [place] [id number] Performed By: #### 2 4362-6 ####[facility] LABCLIA [id number] [facility]USK [address] [place] [address] [place] Potassium [Moles/Vol] 4.9 mmol/L Normal 3.7-5.1 [facility] Comment on above: Order Comment: Speci men Type: BLOOD SPECIMENOrdering Facility: [facility] Address: [address] [facility], [address], [place] [address] Performed By: #### 2 4362-6 ####[facility] LABCLIA [id number] [facility]ID [facility]USK [address] [place] [address] [place] Sodium [Moles/Vol] 136 mmol/L Normal 136-144 [facility] Comment on above: Order Comment: Speci men Type: BLOOD SPECIMENOrdering Facility: [facility] Address: [address] [place] [address] [place] [address] Performed By: #### 2 4362-6 ####[facility] LABCLIA [id number] [facility]K [address] [place] [address] [place] Urea nitrogen [Mass/Vol] 38 mg/dL High 7-21 [facility] Comment on above: Order Comment: Speci men Type: BLOOD SPECIMENOrdering Facility: [facility] [place] Address: [address] [place] [address], [address], [place] [address] Performed By: #### 2 4362-6 ####[facility] LABCLIA [id number] [facility]K [address] [place] [address] [place] Urinalysis complete panel (U )on 07-10-2024 BACTERIA UL >9821 High Negative [facility] Comment on above: Order Comment: Speci men Type: URINE SPECIMENOrdering Facility: [facility] [place] Address: [address], [address], [place] [address] Performed By: #### 2 4356-8 ####[facility] LABCLIA [id number] [facility]ID [facility]USK [address] [address] [place] Bilirubin Ql (U) Negative Normal Negative [facility] Comment on above: Order Comment: Speci men Type: URINE SPECIMENOrdering Facility: [facility] Lara Schultz Address: [address] [facility], [place] [address] Performed By: #### 2 4356-8 ####[facility] LABCLIA [id number] [facility] [address] [address] [place] Clarity (Unsp spec) Turbid Abnormal Clear [facility] Comment on above: Order Comment: Speci men Type: URINE SPECIMENOrdering Facility: [facility] [place] Address: [address] [place] [address] Performed By: #### 2 4356-8 ####[facility] LABCLIA [id number] [place] [address] [place] Color (U) Dark Yellow Abnormal Yellow [facility] Comment on above: Order Comment: Speci men Type: URINE SPECIMENOrdering Facility: [facility] [place] Address: [address] [facility] [place] [place] [address] Performed By: #### 2 4356-8 ####[facility] LABCLIA [id number] [address] [address] [place] Epithelial cells LM.HPF (Urine sed) [#/Area] None Seen Normal [facility] Comment on above: Order Comment: Speci men Type: URINE SPECIMENOrdering Facility: [facility] Lara Schultz Address: [address] [facility], [address], [place] [address] Performed By: #### 2 4356-8 ####[facility] LABCLIA [id number] [place] [address] [place] Glucose Test strip (U) [Mass/Vol] Negative Normal Negative [facility] Comment on above: Order Comment: Speci men Type: URINE SPECIMENOrdering Facility: [facility] [place] Address: [address] [place], [place] [address] Performed By: #### 2 4356-8 ####[facility] LABCLIA [id number] [address] [address] [place] Hemoglobin Ql (U) 3+ Abnormal Negative [facility] Comment on above: Order Comment: Speci men Type: URINE SPECIMENOrdering Facility: [facility] Address: [address] [place] [address], [facility] [place] [address] Performed By: #### 2 4356-8 ####[facility] LABCLIA [id number] [address] [address] [place] Hyaline casts (Urine sed) [#/Area] 4-10 /LPF Abnormal 0 /LPF [facility] Comment on above: Order Comment: Speci men Type: URINE SPECIMENOrdering Facility: [facility] Address: [address] [place] [address] [place] [address] Performed By: #### 2 4356-8 ####[facility] LABCLIA [id number] [address] [address] [place] Ketones Ql (U) Negative Normal Negative [facility] Comment on above: Order Comment: Speci men Type: URINE SPECIMENOrdering Facility: [facility] [place] Address: [address] [place] [address] [place] [address] Performed By: #### 2 4356-8 ####[facility] LABCLIA [id number] [address] [address] [place] Leukocyte esterase Test strip Ql (U) 3+ Abnormal Negative [facility] Comment on above: Order Comment: Speci men Type: URINE SPECIMENOrdering Facility: [facility] [place] Address: [address] [place] [address] [place] [address] Performed By: #### 2 4356-8 ####[facility] LABCLIA [id number] [address] [address] [place] Nitrite Ql (U) Negative Normal Negative [facility] Comment on above: Order Comment: Speci men Type: URINE SPECIMENOrdering Facility: [facility] [place] Address: [address] [place] [address] Performed By: #### 2 4356-8 ####[facility] LABCLIA [id number] [place] [address] [place] pH (U) 5.5 [pH] Normal <8.5 [facility] Comment on above: Order Comment: Speci men Type: URINE SPECIMENOrdering Facility: [facility] [place] Address: [address] [place] [address] Performed By: #### 2 4356-8 ####[facility] LABIA [id number] [place] [address] [place] Protein (U) [Mass/Vol] 2+ Abnormal Negative Cl [facility] Comment on above: Order Comment: Speci men Type: URINE SPECIMENOrdering Facility: [facility] [place] Address: [address] [place] [address] Performed By: #### 2 4356-8 ####[facility] LABCLIA [id number] [place] [address] [place] RBC LM.HPF (Urine sed) [#/Area] /[HPF] Abnormal 0-2 /HPF [facility] Comment on above: Order Comment: Speci men Type: URINE SPECIMENOrdering Facility: [facility] [place] Address: [address] [place] [address] [place] [address] Performed By: #### 2 4356-8 ####[facility] LABIA [id number] [place] [address] [place] Specific gravity (U) [Rel density] 1.021 Normal 1.005-1.03 0 [facility] Comment on above: Order Comment: Speci men Type: URINE SPECIMENOrdering Facility: [facility] Address: [address] [place] [address] [place] [address] Performed By: #### 2 4356-8 ####[facility] LABCLIA [id number] [place] [address] [place] Urobilinogen Ql (U) 0.2 EU/dL Normal 0.2-1.0 EU/dL [facility] Comment on above: Order Comment: Speci men Type: URINE SPECIMENOrdering Facility: [facility] Address: [address] [place] [address] [place] [address] Performed By: #### 2 4356-8 ####[facility] LABCLIA [id number] [place] [address] [place] WBC LM.HPF (Urine sed) [#/Area] /[HPF] Abnormal 0-5 /HPF [facility] Comment on above: Order Comment: Speci men Type: URINE SPECIMENOrdering Facility: [facility] Address: [address] [place] [address] [place] [address] Performed By: #### 2 4356-8 ####[facility] LABCLIA [id number] [place] [address] [place] Gastroenterology Visit Repor ton 07-07-2024 Gastroenterology Visit Report [facility] [address] [place] [address] OFFICE VISIT Date of Service: 07/07/24 MR#: [id number] Acct: [id number] Name: EREN MERCHANT Rep #: [id number] : 1960 Provider: KAUSHAL Alas Age/Sex: 64/F Location: [facility] Status: Signed Intake Vital Signs 03/03/24 13:57 [...] mcg (1,000 unit) tablet (Vitamin D3) geriatric vccqlyqa-etri-vumf 1 ea PO DAILY 06/28/18 06/06/24 Hi [...] is feeling well since her last visit. [facility] Medical History History of steroid therapy Wears [...] hospitalization for seizure like activity at the [facility]. She was found to have a [...] constipation, cramping (more content not included)... Normal [facility] Basic metabolic 2000 panelon 07-04-2024 Anion gap [Moles/Vol] 7 mmol/L Low 8-15 [facility] Comment on above: Order Comment: Speci men Type: BLOOD SPECIMENOrdering Facility: [facility] [place] Address: [address] [facility], [address], [place] [address] Performed By: #### 2 4321-2 ####[facility] LABCLIA [id number] [address] [address] [place] Calcium [Mass/Vol] 10.1 mg/dL Normal 8.5-10.2 [facility] Comment on above: Order Comment: Speci men Type: BLOOD SPECIMENOrdering Facility: [facility] [place] Address: [address] [place] [address], [place] [address] Performed By: #### 2 4321-2 ####[facility] LABCLIA [id number] [address] [address] [place] Chloride [Moles/Vol] 106 mmol/L Normal 98-107 [facility] Comment on above: Order Comment: Speci men Type: BLOOD SPECIMENOrdering Facility: [facility] [place] Address: [address] [facility], [address], [place] [address] Performed By: #### 2 4321-2 ####[facility] LABCLIA [id number] [facility] [address] [address] [place] CO2 [Moles/Vol] 28 mmol/L Normal 22-30 [facility] Comment on above: Order Comment: Speci men Type: BLOOD SPECIMENOrdering Facility: [facility] [place] Address: [address] [facility], [address], [place] [address] Performed By: #### 2 4321-2 ####[facility] LABCLIA [id number] [facility] [address] [address] [place] Creatinine [Mass/Vol] 1.79 mg/dL High 0.58-0.96 [facility] Comment on above: Order Comment: Specjanice lobo Type: BLOOD SPECIMENOrdering Facility: [facility] Address: [address] [place] [address] Performed By: #### 2 4321-2 ####[facility] LABCLIA [id number] [place] [address] [place] Creatinine and Glomerular filtration rate.predicted panel (S/P/Bld) 31 mL/min/1.73m??? Low >=60 [facility] Comment on above: Order Comment: Melinda lobo Type: BLOOD SPECIMENOrdering Facility: [facility] Address: [address] [place] [address] Result Comment: Hyun mated Glomerular Filtration Rate [...] actual GFR. Performed By: #### 2 4321-2 ####[facility] LABCLIA [id number] [place] [address] [place] Glucose [Mass/Vol] 89 mg/dL Normal 74-99 [facility] [facility] Comment on above: Order Comment: Speci men Type: BLOOD SPECIMENOrdering Facility: [facility] Address: [address] [place] [address] Result Comment: The [place] Diabetes Association (ADA) provides guidance for cutoff [...] Standards of Medical Care in Diabetes 2016, [place] [employer]. Diabetes Care. 2016.39(Suppl 1). Performed By: #### 2 4321-2 ####[facility] LABCLIA [id number] [address] [address] [place] Potassium [Moles/Vol] 4.8 mmol/L Normal 3.7-5.1 [facility] Comment on above: Order Comment: Speci men Type: BLOOD SPECIMENOrdering Facility: [facility] Address: [address] [address] Performed By: #### 2 4321-2 ####[facility] LABIA [id number] [place] [address] [place] Sodium [Moles/Vol] 141 mmol/L Normal 136-144 [facility] Comment on above: Order Comment: Speci men Type: BLOOD SPECIMENOrdering Facility: [facility] Address: [address] [place] [address] [place] [address] Performed By: #### 2 4321-2 ####[facility] LABIA [id number] [place] [address] [place] Urea nitrogen [Mass/Vol] 37 mg/dL High 7-21 [facility] Comment on above: Order Comment: Speci men Type: BLOOD SPECIMENOrdering Facility: [facility] Address: [address] [facility] [place] [address] Performed By: #### 2 4321-2 ####[facility] LABIA [id number] [place] [address] [place] CNOVon 06-26-2024 CNOV Normal [facility] XR HAND 3V PA/LAT/OBL RTon 0 06-26-2024 XR HAND 3V PA/LAT/OBL RT Normal [facility] CNOVon 06-20-2024 CNOV Normal [facility] CT CHEST WO IVCONon 06-12-19 CT CHEST WO IVCON Normal [facility] EGD Reporton 06-06-2024 EGD Report [facility] Medical Records Department [address] [place] [address] EGD Report MR#: [id number] Acct: [id number] Name: EREN MERCHANT Rep #: [id number] : 1960 64 From: Aditya Cota DO PCP: Dr. Priyanka Smith MD Status:REG [facility] Patient Name: Eren Merchant Procedure Date: 06/06/2024 [...] pathology results. Procedure Code(s): --- Professional --- 51674, Esophagogastroduodenoscopy, flexible, transoral; with biopsy, single or multiple CPT copyright 2021 [place] [employer]. All rights reserved. The codes documented in this report are preliminary and upon web operations specialist review may be revised to meet current compliance requirements. Aditya Cota DO 06/06/2024 3:33:34 PM This report has been signed electronically. Number of Addenda: 0 Note Initiated On: 06/06/2024 3:15 PM 06/06/24 1533 Date Aditya Cota DO Cosignbyron Signature: Date (if indicated) CC: Dr. Priyanka Smith MD; Aditya Cota DO Date Dictated: 06/06/24 9775 Date Transcribed: Fermenter Operator: MATIAS Signed Normal [facility] MR/POSTOP.ANEon 06-06-2024 MR/POSTOP.ANE [facility] Medical Records Department [address] [place] [address] Anesthesia Postop Eval I 06/06/241535 MR#: [id number] Acct: [id number] Name: EREN MERCHANT Rep #: [id number] : 1960 64 From: Sam Sanchez PCP: Dr. Priyanka Smith MD Status:[facility] Y Race: C Location: [place] [address] Anesthesia: Postop Eval I Current Vital Signs [...] Eval 1 completed: Yes 06/06/241536 Date Sam Rosarioignbyron Signature: Date CC: Signed Normal [facility] MR/ICILTNFY6fa 06-06-2024 MR/POSTOPAN2 [facility] Medical Records Department [address] [place] [address] Anesthesia Postop Eval II 06/06/241944 MR#: [id number] Acct: [id number] Name: EREN MERCHANT Rep #: [id number] : 1960 64 From: Estevan Crowder MD PCP: Dr. Priyanka Smith MD Status:[facility] Y Race: C Location: [place] Anesthesia Postop [...] Estevan Jones Signature: Date CC: Signed Normal [facility] Surgery Specimen Level Tino 06-06-2024 Surgery Specimen Level IV Patient Age/Sex Location Account Attending Physician SHONDAEREN GRAJEDA Javier 64/F EN [id number] Aditya Cota DO Specimen: [id number] Received: 06/07/24 Status: [facility] Jenn Num: [id number] Spec Type: BRAN Meier Dr: DO EZRA Tobias OPERATION: EGD with biopsy PRE-OP DIAGNOSIS: Candidiasis of esophagus TISSUE SUBMITTED: Random esophagus biopsy MICROSCOPIC DIAGNOSIS Esophagus, random biopsy: Fragments of benign squamous epithelium. . 06/08/2024 MICROSCOPIC DESCRIPTION Slides are reviewed. GROSS DESCRIPTION Received in fixative is one container labeled with the patient's name and designated Random esophagus biopsy. The specimen consists of multiple irregular fragments of light lester soft tissue that in aggregate measure 1.2 x 0.2 x 0.1 cm. The specimen is totally submitted in one cassette. MS/mr 06/07/2024 TC:5 CPT:34975 Patient Age/Sex Location Account Attending Physician EREN MERCHANT 64/F EN [id number] Aditya Cota DO Signed (signature on file) Dr. Sammy Szymanski MD 06/08/24 1151 [facility] Comment on above: Performed By: #### P SUIV ####[facility] [address] [place], [address] MR/PAT.ANEon 06-02-2024 MR/PAT.FROILAN [facility] Medical Records Department [address] [place] [address] PAT - Anesthesia 06/02/24 1600 MR#: [id number] Acct: [id number] Name: EREN MERCHANT Rep #: [id number] : 1960 64 From: Estevan Crowder MD PCP: Dr. 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 Hx Hospitalization Yes: 03/09 HYPOTENSION/ 06/02/24 12:12 [...] take am of surgery PONV PONV - tool 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: PONV - tool 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 Female Yes 06/02/24 12:12 HX of Motion [...] 03/03/24 13:57 Respiratory Assessment Respiratory Assessment - tool 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: Respiratory Tract Infection Hx - tool 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 Hx Respiratory Tract Infection No 06/02/24 12:12 STOP Sleep Apnea STOP Sleep Apnea - tool 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: STOP Sleep Apnea - tool 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 Hx Hypertension Yes: CONTROLLED WITH MED 06/02/24 [...] Tobacco Use History Tobacco Use History - tool 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: Tobacco Use History - tool 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 Tobacco Use Smoking Status Never smoker 06/02/24 12:12 Hx Tobacco Use No 06/02/24 12:12 Years Smoking Packs Smoked per Day Smoking Cessation Date was within the last 15 years Hx Smoking Cessation Date Hx Smoking Cessation Counseling Hematologic Medial History Hematologic Hx - 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 Normal [facility] CNPNon 05-31-2024 CNPN Normal [facility] CNOVon 05-30-2024 CNOV Normal [facility] Renal function 2000 panelon 05-26-2024 Albumin [Mass/Vol] 4.0 g/dL Normal 3.9-4.9 [facility] Comment on above: Order Comment: Speci men Type: BLOOD SPECIMENOrdering Facility: [facility] Address: [place] [id number] Performed By: #### 2 4362-6 ####[facility] LABCLIA [id number] [facility] [place] [id number] [place] Anion gap [Moles/Vol] 13 mmol/L Normal 8-15 [facility] Comment on above: Order Comment: Speci men Type: BLOOD SPECIMENOrdering Facility: [facility] [place] Address: [place] [address] Performed By: #### 2 4362-6 ####[facility] LABCLIA [id number] [facility] [place] [address] [place] Calcium [Mass/Vol] 9.9 mg/dL Normal 8.5-10.2 [facility] Comment on above: Order Comment: Speci men Type: BLOOD SPECIMENOrdering Facility: [facility] [place] Address: [place] [address] Performed By: #### 2 4362-6 ####[facility] LABCLIA [id number] [facility] [address] [address] [place] Chloride [Moles/Vol] 103 mmol/L Normal 98-107 [facility] Comment on above: Order Comment: Speci men Type: BLOOD SPECIMENOrdering Facility: [facility] [place] Address: [place] [address] Performed By: #### 2 4362-6 ####[facility] LABCLIA [id number] [facility] [address] [address] [place] CO2 [Moles/Vol] 22 mmol/L Normal 22-30 [facility] Comment on above: Order Comment: Speci men Type: BLOOD SPECIMENOrdering Facility: [facility] Address: [place] [phone] Performed By: #### 2 4362-6 ####[facility] LABCLIA [id number] [place] [address] [place] Creatinine [Mass/Vol] 1.77 mg/dL High 0.58-0.96 [facility] Comment on above: Order Comment: Speci men Type: BLOOD SPECIMENOrdering Facility: [facility] Address: [place] [phone] Performed By: #### 2 4362-6 ####[facility] LABCLIA [id number] [place] [address] [place] [facility] Creatinine and Glomerular filtration rate.predicted panel (S/P/Bld) 31 mL/min/1.73m??? Low >=60 [facility] Comment on above: Order Comment: Speci men Type: BLOOD SPECIMENOrdering Facility: [facility] Address: [place] [id number] Result Comment: Hyun mated Glomerular Filtration Rate [...] actual GFR. Performed By: #### 2 4362-6 ####[facility] LABCLIA [id number] [place] [address] [place] Glucose [Mass/Vol] 94 mg/dL Normal 74-99 [facility] Comment on above: Order Comment: Speci men Type: BLOOD SPECIMENOrdering Facility: [facility] Address: [place] [phone] Result Comment: The [place] Diabetes Association (ADA) provides guidance for cutoff [...] Standards of Medical Care in Diabetes 2016, [place] [employer]. Diabetes Care. 2016.39(Suppl 1). Performed By: #### 2 4362-6 ####[facility] LABCLIA [id number] [place] [address] [place] Phosphate [Mass/Vol] 3.4 mg/dL Normal 2.7-4.8 [facility] Comment on above: Order Comment: Speci men Type: BLOOD SPECIMENOrdering Facility: [facility] Address: [place] [address] Performed By: #### 2 4362-6 ####[facility] LABCLIA [id number] [place] [address] [place] Potassium [Moles/Vol] 3.9 mmol/L Normal 3.7-5.1 [facility] Comment on above: Order Comment: Speci men Type: BLOOD SPECIMENOrdering Facility: [facility] Address: [place] [address] Performed By: #### 2 4362-6 ####[facility] LABCLIA [id number] [address] [address] [place] Sodium [Moles/Vol] 138 mmol/L Normal 136-144 [facility] Comment on above: Order Comment: Speci men Type: BLOOD SPECIMENOrdering Facility: [facility] Address: [place] [address] Performed By: #### 2 4362-6 ####[facility] LABCLIA [id number] [place] [address] [place] Urea nitrogen [Mass/Vol] 33 mg/dL High 7-21 [facility] Comment on above: Order Comment: Speci men Type: BLOOD SPECIMENOrdering Facility: [facility] [place] Address: [place] [address] Performed By: #### 2 4362-6 ####[facility] LABCLIA [id number] [place] [address] [place] CNOVon 05-24-2024 CNOV Normal [facility] XR KNEE 4V AP/PA/LAT/MERCH B ILon 05-24-2024 XR KNEE 4V AP/PA/LAT/MERCH MANDI Normal [facility] CORTISOL, 30 MINon 5 Cortisol 30 Min post Unsp challenge [Mass/Vol] 17.9 ug/dL Normal [facility] Comment on above: Order Comment: Speci men Type: BLOOD SPECIMENOrdering Facility: [facility] Address: [address] [place] [address] Performed By: #### C OR30 ####[facility] [id number] [place] [address] [place] CORTISOL, 60 MINon 5 Cortisol 1 Hr post Unsp challenge [Mass/Vol] 22.1 ug/dL Normal [facility] Comment on above: Order Comment: Speci men Type: BLOOD SPECIMENOrdering Facility: [facility] Address: [address] [place] [address] Performed By: #### C ORS60M ####[facility] LABIA [id number] [place] [address] [place] INTERPRETATION (ACTHST) Normal [facility] Comment on above: Order Comment: Speci men Type: BLOOD SPECIMENOrdering Facility: [facility] Address: [address] [place] [address] Result Comment: Afte r cortrosyn stimulation, a peak cortisol response greater than 12.6 ug/dL may indicate appropriate cortisol secretion. This result should be interpreted within the clinical context and other test results.Clari et al. Clinical Implications for Biochemical Diagnostic Thresholds of Adrenal Sufficiency Using a Highly Specific Cortisol Immunoassay. 2017 Clin. Biochem. 50:475-480. Performed By: #### C ORS60M ####[facility] LABCLIA [id number] [place] [address] [place] CORTISOL, BASALon 05-23-2024 Cortisol baseline [Mass/Vol] 8.7 ug/dL Normal 4.8-19.5 [facility] Comment on above: Order Comment: Speci men Type: BLOOD SPECIMENOrdering Facility: [facility] Address: [address] [place] [address] Result Comment: Prov ided reference range is from 6-10 AM sample collection time.Cortisol Reference Range: 6-10 AM = 4.8-19.5 ug/dL, 4-8 PM = 2.5-11.9 ug/dL Performed By: #### C ORTBAS ####[facility] LABCLIA [id number] [address] [place] [facility] CNOVon 05-18-2024 CNOV Normal [facility] ACTH Plas-mCncon 05-11-2024 Corticotropin (P) [Mass/Vol] 64.8 pg/mL High 7.2-63.3 [facility] Comment on above: Order Comment: Speci men Type: BLOOD SPECIMENOrdering Facility: [facility] Address: [address] [place] [address] Result Comment: ACTH Reference Range: 7-10 am: 7.2 - 63.3 pg/mL Performed By: #### 2 141-0 ####[facility] LABCLIA [id number] [place] [address] [place] Comprehensive metabolic 2000 panelon 05-11-2024 Albumin [Mass/Vol] 3.9 g/dL Normal 3.9-4.9 [facility] Comment on above: Order Comment: Speci men Type: BLOOD SPECIMENOrdering Facility: [facility] Address: [address] [place] [id number] Performed By: #### 2 4323-8, 2142-10 ####[facility] LABCLIA [id number] [place] [address] [place] ALP [Catalytic activity/Vol] 98 U/L Normal 34-123 [facility] Comment on above: Order Comment: Speci men Type: BLOOD SPECIMENOrdering Facility: [facility] Address: [address] [place], [place] [address] Performed By: #### 2 432-8, 2142-10 ####[facility] LABCLIA [id number] [place] [address] [place] ALT [Catalytic activity/Vol] 17 U/L Normal 7-38 [facility] Comment on above: Order Comment: Speci men Type: BLOOD SPECIMENOrdering Facility: [facility] Address: [address] [place] [address] Performed By: #### 2 432-8, 2142-10 ####[facility] LABCLIA [id number] [place] [address] [place] Anion gap [Moles/Vol] 12 mmol/L Normal 8-15 [facility] Comment on above: Order Comment: Speci men Type: BLOOD SPECIMENOrdering Facility: [facility] Address: [address] [place], [place] [address] Performed By: #### 2 4323-8, 2142-10 ####[facility] LABCLIA [id number] [place] [address] [place] AST [Catalytic activity/Vol] 20 U/L Normal 13-35 [facility] Comment on above: Order Comment: Speci men Type: BLOOD SPECIMENOrdering Facility: [facility] Address: [address] [place], [place] [address] Performed By: #### 2 4323-8, 2142-10 ####[facility] LABCLIA [id number] [address] [address] [place] Bilirubin [Mass/Vol] 0.4 mg/dL Normal 0.2-1.3 [facility] Comment on above: Order Comment: Speci men Type: BLOOD SPECIMENOrdering Facility: [facility] Address: [address] [place] [address] Performed By: #### 2 4323-8, 2142-10 ####[facility] LABCLIA [id number] [place] [address] [place] Calcium [Mass/Vol] 9.8 mg/dL Normal 8.5-10.2 [facility] Comment on above: Order Comment: Speci men Type: BLOOD SPECIMENOrdering Facility: [facility] Address: [address] [place] [address] Performed By: #### 2 432-8, 2142-10 ####[facility] LABCLIA [id number] [place] [address] [place] Chloride [Moles/Vol] 108 mmol/L High 98-107 [facility] Comment on above: Order Comment: Speci men Type: BLOOD SPECIMENOrdering Facility: [facility] Address: [address] [place] [address] Performed By: #### 2 4323-8, 2142-10 ####[facility] LABCLIA [id number] [place] [address] [place] CO2 [Moles/Vol] 22 mmol/L Normal 22-30 [facility] Comment on above: Order Comment: Speci men Type: BLOOD SPECIMENOrdering Facility: [facility] Address: [address] [place], [place] [address] Performed By: #### 2 4323-8, 2142-10 ####[facility] LABCLIA [id number] [place] [address] [place] Creatinine [Mass/Vol] 1.73 mg/dL High 0.58-0.96 [facility] Comment on above: Order Comment: Melinda diamond Type: BLOOD SPECIMENOrdering Facility: [facility] Address: [address] [place] [address] Performed By: #### 2 4323-8, 2142-10 ####[facility] LABCLIA [id number] [place] [address] [place] Creatinine and Glomerular filtration rate.predicted panel (S/P/Bld) 32 mL/min/1.73m??? Low >=60 [facility] Comment on above: Order Comment: Melinda diamond Type: BLOOD SPECIMENOrdering Facility: [facility] Address: [address] [place] [address] Result Comment: Hyun mated Glomerular Filtration Rate [...] GFR. Performed By: #### 2 4323-8, 2142-10 ####[facility] LABCLIA [id number] [place] [address] [place] Glucose [Mass/Vol] 96 mg/dL Normal 74-99 [facility] Comment on above: Order Comment: Melinda diamond Type: BLOOD SPECIMENOrdering Facility: [facility] Address: [address] [place] [address] Result Comment: The [place] [employer] Association (ADA) provides guidance for cutoff [...] Standards of Medical Care in Diabetes 2016, [place] [employer]. Diabetes Care. 2016.39(Suppl 1). Performed By: #### 2 4323-8, 2142-10 ####[facility] LABCLIA [id number] [address] [address] [place] Potassium [Moles/Vol] 3.9 mmol/L Normal 3.7-5.1 [facility] Comment on above: Order Comment: Speci men Type: BLOOD SPECIMENOrdering Facility: [facility] Address: [address] [place] [address] Performed By: #### 2 8, 2142-10 ####[facility] LABCLIA [id number] [address] [address] [place] Protein [Mass/Vol] 6.9 g/dL Normal 6.3-8.0 [facility] Comment on above: Order Comment: Speci men Type: BLOOD SPECIMENOrdering Facility: [facility] Address: [address] [place] [address] Performed By: #### 2 8, 2142-10 ####[facility] LABIA [id number] [address] [address] [place] Sodium [Moles/Vol] 142 mmol/L Normal 136-144 [facility] Comment on above: Order Comment: Speci men Type: BLOOD SPECIMENOrdering Facility: [facility] Address: [address] [place] [address] Performed By: #### 2 432-8, 2142-10 ####[facility] LABCLIA [id number] [address] [address] [place] Urea nitrogen [Mass/Vol] 25 mg/dL High 7-21 [facility] Comment on above: Order Comment: Speci men Type: BLOOD SPECIMENOrdering Facility: [facility] Address: [address] [place] [address] Performed By: #### 2 4323-8, 2142-10 ####[facility] LABCLIA [id number] [place] [address] [place] Cortjosefina Isaiasl-mCncon 05-11-20 Cortisol [Mass/Vol] 10.2 ug/dL Normal 4.8-19.5 [facility] Comment on above: Order Comment: Speci men Type: BLOOD SPECIMENOrdering Facility: [facility] Address: [address] [place] [address] Result Comment: Prov ided reference range is from 6-10 AM sample collection time.Cortisol Reference Range: 6-10 AM = 4.8-19.5 ug/dL, 4-8 PM = 2.5-11.9 ug/dL Performed By: #### 2 4323-8, 2142-10 ####[facility] LABCLIA [id number] [place] [address] [place] CNOVon 05-05-2024 CNOV Normal [facility] Basic metabolic 2000 panelon 04-17-2024 Anion gap [Moles/Vol] 13 mmol/L Normal 8-15 [facility] Comment on above: Order Comment: Speci men Type: BLOOD SPECIMENOrdering Facility: [facility] Address: [address] [place] [address] [place] [address] Performed By: #### 2 4321-2 ####[facility] RAFAEL MILLTOWNCLIA [id number] [place] [address] [place] Calcium [Mass/Vol] 10.3 mg/dL High 8.5-10.2 [facility] Comment on above: Order Comment: Speci men Type: BLOOD SPECIMENOrdering Facility: [facility] [place] Address: [address] [place] [address] [place] [address] Performed By: #### 2 4321-2 ####[facility] RAFAEL MILLTOWNCLIA [id number] [place] [address] [place] Chloride [Moles/Vol] 106 mmol/L Normal 98-107 [facility] Comment on above: Order Comment: Speci men Type: BLOOD SPECIMENOrdering Facility: [facility] [place] Address: [address] [place] [address] Performed By: #### 2 4321-2 ####[facility] [id number] [place] [address] [place] CO2 [Moles/Vol] 21 mmol/L Low 22-30 [facility] Comment on above: Order Comment: Speci men Type: BLOOD SPECIMENOrdering Facility: [facility] [place] Address: [address] [place] [address] Performed By: #### 2 4321-2 ####[facility] [id number] [place] [address] [place] Creatinine [Mass/Vol] 1.68 mg/dL High 0.58-0.96 [facility] Comment on above: Order Comment: Speci men Type: BLOOD SPECIMENOrdering Facility: [facility] [place] Address: [address] [place] [address] Performed By: #### 2 4321-2 ####[facility] [id number] [place] [address] [place] Creatinine and Glomerular filtration rate.predicted panel (S/P/Bld) 33 mL/min/1.73m??? Low >=60 [facility] Comment on above: Order Comment: Speci men Type: BLOOD SPECIMENOrdering Facility: [facility] [place] Address: [address] [place] [address] Result Comment: Hyun mated Glomerular Filtration Rate [...] Performed By: #### 2 4321-2 ####[facility] [id number] [place] [address] [place] Glucose [Mass/Vol] 106 mg/dL High 74-99 [facility] Comment on above: Order Comment: Speci men Type: BLOOD SPECIMENOrdering Facility: [facility] Address: [address] [place] [address] Result Comment: The [place] Diabetes Association (ADA) provides guidance for cutoff [...] Standards of Medical Care in Diabetes 2016, [place] Diabetes Association. Diabetes Care. 2016.39(Suppl 1). Performed By: #### 2 4321-2 ####[facility] MED[facility] CENTERKAYLEN [id number] [place] [address] [place] Potassium [Moles/Vol] 3.1 mmol/L Low 3.7-5.1 [facility] Comment on above: Order Comment: Speci men Type: BLOOD SPECIMENOrdering Facility: [facility] Address: [address] [place] [address] [place] [address] Performed By: #### 2 4321-2 ####[facility] [id number] [place] [address] [place] Sodium [Moles/Vol] 140 mmol/L Normal 136-144 [facility] Comment on above: Order Comment: Speci men Type: BLOOD SPECIMENOrdering Facility: [facility] [place] Address: [address] [place] [address] A, [place] [address] Performed By: #### 2 4321-2 ####[facility] RAFAEL ESTESSamreenNCLIYumiko [id number] [place] [id number] [place] Urea nitrogen [Mass/Vol] 28 mg/dL High 7-21 [facility] Comment on above: Order Comment: Speci men Type: BLOOD SPECIMENOrdering Facility: [facility] [place] Address: [address] [place] [address] [place] [address] Performed By: #### 2 4321-2 ####[facility] MED[facility] CENTERNCLIA [id number] [place] [address] [place] CNOVon 04-17-2024 CNOV Normal [facility] CNPNon 04-14-2024 CNPN Normal [facility] Bacteria Ur Culton Bacteria identified Cx Nom (U) Abnormal [facility] Comment on above: Performed By: #### 6 30-4 ####[facility] LABCLIA [id number] [place] [address] [place] CNOVon 04-10-2024 CNOV Normal [facility] CNPNon 04-10-2024 CNPN Normal [facility] UA DIP, URINE (POC)on 2023 BILIRUBIN UA (POCT) Negative Negative [facility] CLARITY UA (POCT) Clear [facility] COLOR UA (POCT) Yellow [facility] GLUCOSE UA (POCT) Negative Negative mg/dL [facility] Hemoglobin Ql (U) Small Abnormal Negative [facility] Interpretation and review of laboratory results Abnormal [facility] KETONE UA (POCT) Negative Negative mg/dL [facility] LEUKOCYTES UA (POCT) Moderate Abnormal Negative [facility] NITRITE UA (POCT) Negative Negative [facility] PH UA (POCT) 6.5 4.5 - 8.0 [facility] Protein Ql (U) Trace Abnormal Negative mg/dL [facility] SPECIFIC GRAVITY UA (POCT) 1.010 1.005 - 1.030 [facility] UROBILINOGEN UA (POCT) 0.2 Sallie l E.U./dL [facility] Location: [place], [address], [place], [address] [facility] POINT OF CARE [facility] Gastroenterology Visit Repor ton 2024 Gastroenterology Visit Report [facility] Gastroenterology [address] [place] [address] OFFICE VISIT Date of Service: 04/06/24 MR#: [id number] Acct: [id number] Name: EREN MERCHANT Rep #: [id number] : 1960 Provider: KAUSHAL Alas Age/Sex: 64/F Location: [facility] Status: Signed Intake Vital Signs 03/03/24 13:57 [...] mcg (1,000 unit) tablet (Vitamin D3) geriatric izotqxbg-xaih-sdmu 1 ea PO DAILY 06/28/18 04/06/24 History [...] 03.04.24 for seizure like activity at the [facility]. She was found to have a [...] Appearance: average body habitus and well nourished HENMT Head: normal to inspection Ears: hearing grossly normal bilaterally Nose: external nose normal Face and sinus: normal facial exam Eyes General: appearance normal, both eyes and all related structures Neck Neck: normal visual inspection Chest Chest palpation in (more content not included)... Normal [facility] 25(OH)D3 [facility] 2023 25-hydroxyvitamin D3 [Mass/Vol] 49.0 ng/mL Normal 31.0-80.0 [facility] Comment on above: Order Comment: Speci lobo Type: BLOOD SPECIMENOrdering Facility: [facility] [place] Address: [place] [address] Result Comment: Clas sification of 25 [place] Vitamin D status:Deficiency/Insufficiency: < or = 30 ng/ml.Sufficiency/Optimal Levels: 31-80 ng/mLToxicity: > 100 ng/mL.Test performed by chemiluminescent immunoassay. Performed By: #### 1 989-3 ####[facility] LABCLIA [id number] [place] [address] [place] ALBUMIN/CREATININE RATIO, UR INEon 04-05-2024 Albumin DL <= 20 mg/L (U) [Mass/Vol] 672.5 mg/L Normal [facility] Comment on above: Order Comment: Speci men Type: URINE SPECIMENOrdering Facility: [facility] Address: [place] [address] Performed By: #### U ACR ####[facility] LABCLIA [id number] [place] [address] [place] Albumin/Creatinine (U) [Mass ratio] 474 mg/g High <30 [facility] Comment on above: Order Comment: Speci men Type: URINE SPECIMENOrdering Facility: [facility] [place] Address: [place] [address] Result Comment: Adul t Male and Female Nephrotic Criteria:<30 mg/g is considered normal to mildly tkmlraqxi92-240 mg/g is considered moderately increased>300 mg/g is considered severely increasedKDIGO. (2013). KDIGO 2012 Clinical Practice Guideline for the Evaluation and Management of Chronic Kidney Disease. Official Journal of the International Society of Nephrology, 3(1), 1-150. Performed By: #### U ACR ####[facility] LABCLIA [id number] [place] [address] [place] Creatinine (U) [Mass/Vol] 141.8 mg/dL Normal 20.0-300.0 [facility] Comment on above: Order Comment: Speci men Type: URINE SPECIMENOrdering Facility: [facility]ITALYum[facility] BobbyNewmarket Address: [place] [address] Performed By: #### U ACR ####[facility] LABCLIA [id number] [place] [address] [place] PTH-Intact SerPl[facility]on [facility] Parathyrin.intact [Mass/Vol] 47 pg/mL Normal 15-65 [facility] Comment on above: Order Comment: Speci men Type: BLOOD SPECIMENOrdering Facility: [facility]ITALYum[facility] BobbyNewmarket Address: [place] [address] Performed By: #### 2 731-8, 48514-5 ####[facility] LABCLIA [id number] [place] [address] [place] Renal function 2000 panelon 04-05-2024 Albumin [Mass/Vol] 3.9 g/dL Normal 3.9-4.9 [facility] Comment on above: Order Comment: Speci men Type: BLOOD SPECIMENOrdering Facility: [facility]ITALYum[facility] BobbyNewmarket Address: [place] [address] Performed By: #### 2 731-8, 82297-6 ####[facility] LABCLIA [id number] [facility]IL[facility]ERTLID [facility] CAMPUSK [address] [address] [place] Anion gap [Moles/Vol] 13 mmol/L Normal 8-15 [facility] Comment on above: Order Comment: Speci men Type: BLOOD SPECIMENOrdering Facility: [facility] [place] Address: [place] [address] Performed By: #### 2 731-8, 21807-6 ####[facility] LABCLIA [id number] [facility] [address] [address] [place] Calcium [Mass/Vol] 9.6 mg/dL Normal 8.5-10.2 [facility] Comment on above: Order Comment: Speci men Type: BLOOD SPECIMENOrdering Facility: [facility] [place] Address: [place] [address] Performed By: #### 2 731-8, 30667-6 ####[facility] LABCLIA [id number] [facility] [address] [address] [place] Chloride [Moles/Vol] 102 mmol/L Normal 98-107 [facility] Comment on above: Order Comment: Speci men Type: BLOOD SPECIMENOrdering Facility: [facility] [place] Address: [place] [address] Performed By: #### 2 731-8, 91962-1 ####[facility] LABCLIA [id number] [facility] [address] [address] [place] CO2 [Moles/Vol] 22 mmol/L Normal 22-30 [facility] Comment on above: Order Comment: Speci men Type: BLOOD SPECIMENOrdering Facility: [facility] [place] Address: [place] [address] Performed By: #### 2 731-8, 46215-7 ####[facility] LABCLIA [id number] [address] [address] [place] Creatinine [Mass/Vol] 2.05 mg/dL High 0.58-0.96 [facility] Comment on above: Order Comment: Speci men Type: BLOOD SPECIMENOrdering Facility: [facility] Address: [place] [address] Performed By: #### 2 731-8, 18452-3 ####[facility] LABIA [id number] [place] [address] [place] Creatinine and Glomerular filtration rate.predicted panel (S/P/Bld) 26 mL/min/1.73m??? Low >=60 [facility] Comment on above: Order Comment: Melinda diamond Type: BLOOD SPECIMENOrdering Facility: [facility] Address: [place] [address] Result Comment: Hyun mated Glomerular Filtration Rate [...] actual GFR. Performed By: #### 2 731-8, 92339-4 ####[facility] LABCLIA [id number] [address] [address] [place] Glucose [Mass/Vol] 109 mg/dL High 74-99 [facility] Comment on above: Order Comment: Speci men Type: BLOOD SPECIMENOrdering Facility: [facility] Address: [place] [address] Result Comment: The [place] Diabetes Association (ADA) provides guidance for cutoff [...] Standards of Medical Care in Diabetes 2016, [place] Diabetes Association. Diabetes Care. 2016.39(Suppl 1). Performed By: #### 2 731-8, 53470-0 ####[facility] LABCLIA [id number] [address] [address] [place] Phosphate [Mass/Vol] 3.2 mg/dL Normal 2.7-4.8 [facility] Comment on above: Order Comment: Speci men Type: BLOOD SPECIMENOrdering Facility: [facility] Address: [place] [address] Performed By: #### 2 731-8, 29673-2 ####[facility] LABCLIA [id number] [address] [address] [place] Potassium [Moles/Vol] 4.0 mmol/L Normal 3.7-5.1 [facility] Comment on above: Order Comment: Speci men Type: BLOOD SPECIMENOrdering Facility: [facility] Address: [place] [address] Performed By: #### 2 731-8, 86047-4 ####[facility] LABCLIA [id number] [address] [address] [place] Sodium [Moles/Vol] 137 mmol/L Normal 136-144 [facility] Comment on above: Order Comment: Speci men Type: BLOOD SPECIMENOrdering Facility: [facility] Address: [place] [address] Performed By: #### 2 731-8, 43282-3 ####[facility] LABCLIA [id number] [address] [address] [place] Urea nitrogen [Mass/Vol] 21 mg/dL Normal 7-21 [facility] Comment on above: Order Comment: Speci men Type: BLOOD SPECIMENOrdering Facility: [facility] [place] Address: [place] [address] Performed By: #### 2 731-8, 83981-4 ####[facility] LABCLIA [id number] [place] [address] [place] Urinalysis complete panel (U )on 04-05-2024 BACTERIA UL >9821 High Negative [facility] Comment on above: Order Comment: Speci men Type: URINE SPECIMENOrdering Facility: [facility] [place] Address: [place] [id number] Performed By: #### 2 4356-8 ####[facility] LABCLIA [id number] [place] [address] [place] Bilirubin Ql (U) Negative Normal Negative [facility] Comment on above: Order Comment: Speci men Type: URINE SPECIMENOrdering Facility: [facility] [place] Address: [place] [address] Performed By: #### 2 4356-8 ####[facility] LABCLIA [id number] [place] [address] [place] Clarity (Unsp spec) Turbid Abnormal Clear Charbel [facility] Comment on above: Order Comment: Speci men Type: URINE SPECIMENOrdering Facility: [facility] [place] Address: [place] [address] Performed By: #### 2 4356-8 ####[facility] LABCLIA [id number] [place] [address] [place] Color (U) Yellow Normal Yellow [facility] Comment on above: Order Comment: Speci men Type: URINE SPECIMENOrdering Facility: [facility] Address: [place] [address] Performed By: #### 2 4356-8 ####[facility] LABCLIA [id number] [place] [address] [place] Epithelial cells LM.HPF (Urine sed) [#/Area] Moderate Normal [facility] Comment on above: Order Comment: Speci men Type: URINE SPECIMENOrdering Facility: [facility] Address: [place] [address] Performed By: #### 2 4356-8 ####[facility] LABCLIA [id number] [place] [address] [place] Glucose Test strip (U) [Mass/Vol] Negative Normal Negative [facility] Comment on above: Order Comment: Speci men Type: URINE SPECIMENOrdering Facility: [facility] Address: [place] [address] Performed By: #### 2 4356-8 ####[facility] LABCLIA [id number] [place] [address] [place] Hemoglobin Ql (U) 3+ Abnormal Negative [facility] Comment on above: Order Comment: Speci men Type: URINE SPECIMENOrdering Facility: [facility] Address: [place] [address] Performed By: #### 2 4356-8 ####[facility] LABCLIA [id number] [place] [address] [place] Hyaline casts (Urine sed) [#/Area] 4-10 /LPF Abnormal 0 /LPF [facility] Comment on above: Order Comment: Speci men Type: URINE SPECIMENOrdering Facility: [facility] Address: [place] [address] Performed By: #### 2 4356-8 ####[facility] LABCLIA [id number] [place] [address] [place] Ketones Ql (U) Negative Normal Negative [facility] Comment on above: Order Comment: Speci men Type: URINE SPECIMENOrdering Facility: [facility] Address: [place] [id number] Performed By: #### 2 4356-8 ####[facility] LABCLIA [id number] [place] [address] [place] Leukocyte esterase Test strip Ql (U) 3+ Abnormal Negative [facility] Comment on above: Order Comment: Speci men Type: URINE SPECIMENOrdering Facility: [facility] Address: [place] [id number] Performed By: #### 2 4356-8 ####[facility] LABCLIA [id number] [place] [address] [place] Nitrite Ql (U) Positive Abnormal Negative [facility] Comment on above: Order Comment: Speci men Type: URINE SPECIMENOrdering Facility: [facility] Address: [place] [address] Performed By: #### 2 4356-8 ####[facility] LABCLIA [id number] [place] [address] [place] pH (U) 6.5 [pH] Normal <8.5 [facility] Comment on above: Order Comment: Speci men Type: URINE SPECIMENOrdering Facility: [facility] Address: [place] [id number] Performed By: #### 2 4356-8 ####[facility] LABCLIA [id number] [place] [address] [place] Protein (U) [Mass/Vol] 3+ Abnormal Negative [facility] Comment on above: Order Comment: Speci men Type: URINE SPECIMENOrdering Facility: [facility] Address: [place] [id number] Performed By: #### 2 4356-8 ####[facility] LABCLIA [id number] [place] [address] [place] RBC LM.HPF (Urine sed) [#/Area] /[HPF] Abnormal 0-2 /HPF [facility] Comment on above: Order Comment: Speci men Type: URINE SPECIMENOrdering Facility: [facility] Address: [place] [address] Performed By: #### 2 4356-8 ####[facility] LABIA [id number] [address] [address] [place] Specific gravity (U) [Rel density] 1.017 Normal 1.005-1.03 0 [facility] Comment on above: Order Comment: Speci men Type: URINE SPECIMENOrdering Facility: [facility] Address: [place] [address] Performed By: #### 2 4356-8 ####[facility] LABIA [id number] [place] [address] [place] Urobilinogen Ql (U) 1.0 EU/dL Normal 0.2-1.0 EU/dL [facility] Comment on above: Order Comment: Speci men Type: URINE SPECIMENOrdering Facility: [facility] Address: [place] [address] Performed By: #### 2 4356-8 ####[facility] LABIA [id number] [place] [address] [place] WBC LM.HPF (Urine sed) [#/Area] /[HPF] Abnormal 0-5 /HPF [facility] Comment on above: Order Comment: Speci men Type: URINE SPECIMENOrdering Facility: [facility] Address: [place] [address] Performed By: #### 2 4356-8 ####[facility] LABIA [id number] [place] [address] [place] 36on 04-03-2024 36 Name of caller: Vic booker Contact phone number: [phone] Relationship to Patient: patient Provider: Dr. Kayli Velasquez Practice: Neurology Chief Complaint/Reason for Call: Patient is requesting ED notes and testing from 03/04/24 and 03/06/24 to be faxed to her neurologist at [phone]. Please advise. Best time of day caller can be reached: Any Patient advised that office/PCP has 24-48 business hours to return their call: Yes [facility] 36on 03-27-2024 36 Spoke with Pt - Pt quoc sanchez [place] location. Pt appt rescheduled to 04.07.24 @0920 [facility] [address] Dr. Blake. Pt aware of appt d/t/l. [facility] 36 Patient retuning christina l and states she was offered [place] location on the . Please call to reschedule. [facility] 36on 03-24-2024 36 Name of Caller: Vic booker Contact Reason for Appointment: Patient called to verify procedure appointment. Patient asked if there was a closer off to where she lives. Please call patient back to advise. Office Name: Urology Medication Refills need, if any: N/A Medication Name: N/A [facility] 36 Cysto stent removal on 04/04/[address] [place] in [place]. [facility] 36on 03-23-2024 36 Had bilateral laser litho, needs cysto stent removal in one week [facility] No Panel Informationon 03-23 There is no [...] into her clothes while up to bathroom. [facility] Nursing Note Took over care of kaushal pena for RN lunch break. Patient just placed on bed mcgraw per RN. [facility] Op Noteon 03-23-2024 Op Note Javier Rosenberg [...] Diagnostic ureteroscopy was performed using the 6.9 [place] semirigid ureteroscope. The scope was advanced along [...] anesthesia. Katherine Bowen MD 03/23/24 5:20 PM Normal [facility] Op Note Date: 03/23/2024 Loca tion: [facility] OR Name: Eren Merchant, : 1960, Diagnosis Pre-op Diagnosis * Calculus of ureter [N20.1] Post-op Diagnosis * Calculus of ureter [N20.1] Procedures CYSTOSCOPY AND PYELOGRAM 07246 - LA CYSTO BLADDER W/URETERAL CATHETERIZATION BILATERAL URETEROSCOPY, HOLMIUM LASER LITHOTRIPSY 05219 - LA CYSTO W/URETEROSCOPY W/LITHOTRIPSY BILATERAL URETERAL STENT CHANGE 99069 - LA CYSTO W/INSERT URETERAL STENT Surgeons * Katherine Bowen - Primary Procedure Summary Anesthesia: General ASA: II Estimated Blood Loss: 10 mL Drains: * None in log * Implants Type Name Action Serial No. Stent STENT URET 6FR 24CM WO GW - [id number] Implanted Staff: Spent Grain Dryer: Sam Roca RN Relief Spent Grain Dryer: Jordan Jacobson RN Scrub Person: Abdulkadir Summers [...] (two hours if receiving Vancomycin or flouroquinolone) [facility] 3603-16-2024 36 Lvm for Pt letting h er know if she still has questions to call our office. [facility] 36on 03-15-2024 36 Name of caller: Vic booker Contact phone number: [phone] Relationship to Patient: patient Provider: Clarice Practice: [...] business hours to return their call: N/A [address] 03-14-2024 36 Spoke with patient. Advised that since she has had SX with Dr. Bowen and has additional SX scheduled on 03/23 no need to schedule in office follow up at this time. Advised after SX on 03/23 Dr. Bowen will advise on follow up needed and patient will be scheduled at that time. Patient voiced understanding. [address] 03-13-2024 36 Name of Caller: Vic booker Contact Reason for Appointment: Eren stated she was recently in the hospital and in OV notes it states for her to schedule an appointment with Dr Bae in 2 weeks, Please call Eren back to advise. Office Name: Urology Medication Refills need, if any: N/A Medication Name: N/A [address] 03-10-2024 36 I called and spoke w ith patient. She would prefer to establish with GI near her house. She stated they recommended Dr Cota - she will call his office today and contact us to let us know who she makes an appointment with and we will send records at that time. [address] 03-09-2024 36 Doctor: Clarice DIETZ (arrive 15 min early): N/A PAT instructions: Please bring photo ID, insurance card, list of all current medications Surgery: 03/23/24 at 12:30pm at [facility] Surgery arrival time: 10:30am Surgery instructions: Nothing to eat after midnight. Can have clear liquids black coffee (no cream or dairy), tea, water, Sprite, apple juice, Gatorade (no reds or purples) up until arrival time. Medication instructions: Hold Aspirin, fish oil and over the counter vitamins 3 days prior to surgery Post op follow-up: [facility] BASIC METABOLIC PANELon 02-15 Anion gap [Moles/Vol] 4 mmol/L Normal 3-13 [facility] Comment on above: Performed By: #### L AB15 ####Manager Shell: LACY OROSCO ([id number])[facility])[address] [place] [address] Calcium [Mass/Vol] 9.4 mg/dL Normal 8.4-10.4 [facility] Comment on above: Performed By: #### L AB15 ####Manager Shell: LACY OROSCO ([id number])[facility] [facility])[address] [place] [address] [place] Chloride [Moles/Vol] 102 mmol/L Normal 98-107 [facility] Comment on above: Performed By: #### L [id number] ####Manager Shell: LACY OROSCO ([id number])[facility] ([facility])[address] [place] [address] CO2 [Moles/Vol] 26 mmol/L Normal 22-30 [facility] Comment on above: Performed By: #### L [id number] ####Manager Shell: LACY OROSCO ([id number])[facility] ([facility])[address] [place] [address] Creatinine [Mass/Vol] 1.77 mg/dL High 0.52-1.04 [facility] Comment on above: Performed By: #### L [id number] ####Manager Shell: LACY OROSCO ([phone])[facility] ([facility])[address] [place] [address] [place] GLOMERULAR FILTRATION RATE ML/MIN/1.73 SQ M.PREDICTED 31.6 mL/min/1.73m*2 Low >60.0 [facility] Comment on above: Result Comment: Calc ulation based on the Chronic Kidney Disease Epidemiology Collaboration (CKD-EPI) equation refit without adjustment for race Performed By: #### L [id number] ####Manager Shell: LACY OROSCO ([id number])[facility] ([facility])[address] [place] [address] [place] Glucose [Mass/Vol] 124 mg/dL High 70-100 [facility] Comment on above: Performed By: #### L [id number] ####Manager Shell: LACY OROSCO ([phone])[facility])[address] [place] [address] Potassium [Moles/Vol] 3.6 mmol/L Normal 3.5-5.1 [facility] Comment on above: Performed By: #### L [id number] ####Manager Shell: LACY OROSCO ([phone])[facility] ([facility])[address] [place] [address] Sodium [Moles/Vol] 132 mmol/L Low 135-145 [facility] Comment on above: Performed By: #### L [id number] ####Manager Shell: LACY OROSCO ([id number])[facility])[address] [place] [address] Urea nitrogen [Mass/Vol] 40 mg/dL High 7-17 [facility] Comment on above: Performed By: #### L [id number] ####Manager Shell: LACY OROSCO ([phone])[facility] ([facility])[address] [place] [address] Basic metabolic 1998 panelon 03-09-2024 Anion gap [Moles/Vol] 4 mmol/L 3 - 13 mmol/L [facility] Calcium [Mass/Vol] 9.4 mg/dL 8.4 - 10. 4 mg/dL [facility] Chloride [Moles/Vol] 102 mmol/L 98 - 10 7 mmol/L [facility] CO2 [Moles/Vol] 26 mmol/L 22 - 30 mmol/L [facility] Creatinine [Mass/Vol] 1.77 mg/dL High 0.52 - 1.04 mg/dL [facility] GFR/1.73 sq M.predicted (S/P/Bld) [Vol rate/Area] 31.6 mL/min Low - PINF [facility] Comment on above: Calculation based on the Chronic Kidney Disease Epidemiology Collaboration (CKD-EPI) equation refit without adjustment for race Glucose [Mass/Vol] 124 mg/dL High 70 - 100 mg/dL [facility] Interpretation and review of laboratory results Abnormal [facility] Potassium [Moles/Vol] 3.6 mmol/L 3.5 - 5.1 mmol/L [facility] Sodium [Moles/Vol] 132 mmol/L Low 135 - 145 mmol/L [facility] Urea nitrogen [Mass/Vol] 40 mg/dL High 7 - 17 mg/dL [facility] CBC W Auto Differential pane l (Bld)Ordered By: Vladimir North on 03-09-2024 Erythrocyte distribution width (RBC) [Ratio] 15.3 % High 11.5 - 15.0 % [facility] Hematocrit (Bld) [Volume fraction] 31.4 % Low 35.0 - 47.0 % [facility] Hemoglobin (Bld) [Mass/Vol] 10 g/dL Low 11.7 - 16.0 g/dL [facility] Interpretation and review of laboratory results Abnormal [facility] MCH (RBC) [Entitic mass] 25.3 pg Low 26.0 - 34.0 pg [facility] MCHC (RBC) [Mass/Vol] 31.8 % 30.5 - 36.0 % [facility] MCV (RBC) [Entitic vol] 79.5 fL 77.0 - 99.0 fL [facility] Platelet mean volume (Bld) [Entitic vol] 10.3 fL 9.0 - 12.7 fL [facility] Platelets (Bld) [#/Vol] 401 10*3/uL 140 - 440 10*3/uL [facility] RBC (Bld) [#/Vol] 3.95 10*6/uL 3.80 - 5.20 10*6/uL [facility] WBC (Bld) [#/Vol] 13.8 10*3/uL High 3.6 - 10.7 10*3/uL [facility] CBC WITH AUTO DIFFERENTIALon 03-09-2024 Erythrocyte distribution width (RBC) [Ratio] 15.3 % High 11.5-15.0 [facility] Comment on above: Performed By: #### L [id number], [id number] ####Manager Shell: LACY OROSCO ([id number])[address] Hematocrit (Bld) [Volume fraction] 31.4 % Low 35.0-47.0 [facility] Comment on above: Performed By: #### L [id number], [id number] ####Manager Shell: LACY OROSCO ([id number])[facility])[address] [place] [address] Hemoglobin (Bld) [Mass/Vol] 10.0 g/dL Low 11.7-16.0 [facility] Comment on above: Performed By: #### L [id number], [id number] ####Manager Shell: LACY OROSCO ([id number])[facility] ([facility])[address] [place] [address] MCH (RBC) [Entitic mass] 25.3 pg Low 26.0-34.0 [facility] Comment on above: Performed By: #### L [id number], [id number] ####Manager Shell: LACY OROSCO ([id number])[facility])[address] [place] [address] MCHC 31.8 % Normal 30.5-36.0 [facility] Comment on above: Performed By: #### L [id number], [id number] ####Manager Shell: LACY OROSCO ([phone])[facility] ([facility])[address] [place] [address] MCV (RBC) [Entitic vol] 79.5 fL Normal 77.0-99.0 [facility] Comment on above: Performed By: #### L [id number], [id number] ####Manager Shell: LACY OROSCO ([id number])[facility])[address] [place] [address] Platelet mean volume (Bld) [Entitic vol] 10.3 fL Normal 9.0-12.7 [facility] Comment on above: Performed By: #### L [id number], [id number] ####Manager Shell: LACY OROSCO ([id number])[facility])[address] [place] [address] Platelets (Bld) [#/Vol] 401 10*3/uL Normal 140-440 [facility] Comment on above: Performed By: #### L [id number], [id number] ####Manager Shell: LACY OROSCO ([id number])[facility] ([facility])[address] [place] [address] RBC (Bld) [#/Vol] 3.95 10*6/uL Normal 3.80-5.20 [facility] Comment on above: Performed By: #### L [id number], [id number] ####Manager Shell: LACY OROSCO ([id number])[facility] ([facility])[address] [place] [address] WBC (Bld) [#/Vol] 13.8 10*3/uL High 3.6-10.7 [facility] Comment on above: Performed By: #### Glory [id number], [id number] ####Manager Shell: LACY OROSCO ([id number])[facility] ([facility])[address] [place] [address] Laboratory - Hematology and Cell countson 03-09-2024 Band form neutrophils (Bld) [#/Vol] 1.1 10*3/uL High NINF - 0.0 10*3/uL [facility] Band form neutrophils/100 WBC (Bld) 8 % High NINF - 0 % [facility] Ferney cells LM Ql (Bld) Rare Abnormal (none) [...] 4 % Low 5 - 13 % [facility] Neutrophils (Bld) [#/Vol] 10.9 10*3/uL High 1.8 - 7.5 10*3/uL [facility] Poikilocytosis LM Ql (Bld) Rare Abnormal (none) [facility] RBC morphology finding Nom (Bld) abnormal [facility] Segmented neutrophils/100 WBC (Bld) 71 % 38 - 82 % [facility] MANUAL DIFFERENTIAL (CELLAVI DARIUSZ)on 03-09-2024 BAND NEUTROPHILS TOTAL PER COUNTED LEUKOCYTES BY MANUAL COUNT 8 Normal [facility] Comment on above: Performed By: #### L [id number], [id number] ####Manager Shell: LACY OROSCO ([id number])[facility])[address] [place] [address] [place] BANDS (10*3/UL) IN BLOOD-CELLAVISION 1.1 10*3/uL High <=0.0 [facility] Comment on above: Performed By: #### Glory [id number], [id number] ####Manager Shell: LACY OROSCO ([id number])[facility] ([facility])[address] [place] [address] [place] BASOPHILS TOTAL PER COUNTED LEUKOCYTES BY MANUAL COUNT Normal [facility] Comment on above: Performed By: #### L [id number], [id number] ####Manager Shell: LACY OROSCO ([id number])[facility])[address] [place] [address] [place] BLASTS TOTAL PER COUNTED LEUKOCYTES BY MANUAL COUNT Normal [facility] Comment on above: Performed By: #### L [id number], [id number] ####Manager Shell: LACY OROSCO ([id number])[facility] ([facility])[address] [place] [address] [place] MAGO CELLS PRESENCE IN BLOOD BY LIGHT MICROSCOPY Rare Abnormal (none) [facility] Comment on above: Performed By: #### L [id number], [id number] ####Manager Shell: LACY OROSCO ([id number])[facility])[address] [place] [address] [place] EOSINOPHILS (10*3/UL) IN BLOOD-CELLAVISION 0.4 10*3/uL Normal 0.0-0.5 [facility] Comment on above: Performed By: #### L [id number], [id number] ####Manager Shell: LACY OROSCO ([id number])[facility] ([facility])[address] [place] [address] [place] EOSINOPHILS TOTAL PER COUNTED LEUKOCYTES BY MANUAL COUNT 3 High 0-1 [facility] Comment on above: Performed By: #### L [id number], [id number] ####Manager Shell: LACY OROSCO ([id number])[facility])[address] [place] [address] [place] EOSINOPHILS/100 LEUKOCYTES IN BLOOD-CELLAVISION 3 % Normal 0-6 [facility] Comment on above: Performed By: #### L [id number], [id number] ####Manager Shell: LACY OROSCO ([id number])[facility] ([facility])[address] [place] [address] [place] LYMPHOCYTES (10*3/UL) IN BLOOD-CELLAVISION 1.8 10*3/uL Normal 1.0-4.3 [facility] Comment on above: Performed By: #### L [id number], [id number] ####Manager Shell: LACY OROSCO ([id number])[facility] ([facility])[address] [place] [address] [place] LYMPHOCYTES TOTAL PER COUNTED LEUKOCYTES BY MANUAL COUNT 13 Normal [facility] Comment on above: Performed By: #### L [id number], [id number] ####Manager Shell: LACY OROSCO ([id number])[facility])[address] [place] [address] [place] LYMPHOCYTES/100 LEUKOCYTES IN BLOOD-CELLAVISION 13 % Low 15-45 [facility] Comment on above: Performed By: #### L [id number], [id number] ####Manager Shell: LCAY OROSCO ([id number])[facility])[address] [place] [address] [place] METAMYELOCYTES (10*3/UL) IN BLOOD-CELLAVISION 0.1 10*3/uL High <=0.0 [facility] Comment on above: Performed By: #### L [id number], [id number] ####Manager Shell: LACY OROSCO ([phone])[facility] ([facility])[address] [place] [address] [place] METAMYELOCYTES TOTAL PER COUNTED LEUKOCYTES BY MANUAL COUNT 1 Normal [facility] Comment on above: Performed By: #### Glory [id number], [id number] ####Manager Shell: LACY OROSCO ([id number])[facility] ([facility])[address] [place] [address] [place] METAMYELOCYTES/100 LEUKOCYTES IN BLOOD-CELLAVISION 1 % High <=0 [facility] Comment on above: Performed By: #### Glory [id number], [id number] ####Manager Shell: LACY ROOSCO ([id number])[facility] [place] [address] [place] MONOCYTES (10*3/UL) IN BLOOD-CELLAVISION 0.6 10*3/uL Normal 0.0-0.9 [facility] Comment on above: Performed By: #### Glory [id number], [id number] ####Manager Shell: LACY OROSCO ([id number])[facility] ([facility])[address] [place] [address] [place] MONOCYTES TOTAL PER COUNTED LEUKOCYTES BY MANUAL COUNT 4 Normal [facility] Comment on above: Performed By: #### L [id number], [id number] ####Manager Shell: LACY OROSCO ([id number])[facility] ([facility])[address] [place] [address] [place] MONOCYTES/100 LEUKOCYTES IN BLOOD-SARIKA 4 % Low 5-13 [facility] Comment on above: Performed By: #### L [id number], [id number] ####Manager Shell: LACY OROSCO ([id number])[facility] ([facility])[address] [place] [address] [place] MYELOCYTES COUNTED BY MANUAL COUNT Normal [facility] Comment on above: Performed By: #### L [id number], [id number] ####Manager Shell: LACY OROSCO ([id number])[facility])[address] [place] [address] [place] NEUTROPHILS BAND FORM/100 LEUKOCYTES IN BLOOD-CELLAVISI 8 % High <=0 [facility] Comment on above: Performed By: #### L [id number], [id number] ####Manager Shell: LACY OROSCO ([id number])[facility] ([facility])[address] [place] [address] [place] NEUTROPHILS TOTAL PER COUNTED LEUKOCYTES BY MANUAL COUNT 70 Normal [facility] Comment on above: Performed By: #### L [id number], [id number] ####Manager Shell: LACY OROSCO ([id number])[facility])[address] [place] [address] POIKILOCYTOSIS (PRESENCE) IN BLOOD BY LIGHT MICROSCOPY Rare Abnormal (none) [facility] Comment on above: Performed By: #### L [id number], [id number] ####Manager Shell: LACY OROSCO ([id number])[facility] ([facility])[address] [place] [address] [place] PROMYELOCYTES TOTAL PER COUNTED LEUKOCYTES BY MANUAL COUNT Normal [facility] Comment on above: Performed By: #### L [id number], [id number] ####Manager Shell: LACY OROSCO ([id number])[facility])[address] [place] [address] [place] RBC MORPHOLOGY IN BLOOD abnormal Normal [facility] Comment on above: Performed By: #### L [id number], [id number] ####Manager Shell: LACY OROSCO ([id number])[facility])[address] [place] [address] [place] SEGMENTED NEUTROPHILS (10*3/UL) IN BLOOD-CELLAVISION 10.9 10*3/uL High 1.8-7.5 [facility] Comment on above: Performed By: #### L [id number], [id number] ####Manager Shell: LACY OROSCO ([id number])[facility] ([facility])[address] [place] [address] SEGMENTED NEUTROPHILS/100 LEUKOCYTES-CE 71 % Normal 38-82 [facility] Comment on above: Performed By: #### L [id number], [id number] ####Manager Shell: LACY OROSCO ([id number])[facility] ([facility])[address] [place] [address] UNCLASSIFIED CELLS TOTAL PER COUNTED LEUKOCYTES BY MANUAL COUNT Normal [facility] Comment on above: Performed By: #### L [id number], [id number] ####Manager Shell: LACY OROSCO ([id number])[facility] ([facility])[address] [place] [address] VARIANT LYMPHOCYTES TOTAL PER COUNTED LEUKOCYTES BY MANUAL COUNT Normal [facility] Comment on above: Performed By: #### L [id number], [id number] ####Manager Shell: LACY OROSCO ([id number])[facility] ([facility])[address] [place] [address] No Panel InformationOrdered By: Bar Pham on 03-09-2024 Case Report Surgical Pathology C ase: [id number] Authorizing Provider: Jennifer Sung MD Collected: 03/07/2024 1009 Ordering Location: [facility] Endoscopy Received: 03/07/2024 1058 Pathologist: Bar Pham MD Specimen: Gastric Antrum, R/O H Pylori [facility] Work Phone: Clinical Information w9rvsQKaHWWzhVMcUWx wMlxhbnN cIMCkfOMsG6VnkorxNKazNK7jTN 6hjSfkpJHpcBHnBTEpQpWcc3rnk 584xOYiq3xyQRTQVSvpSWYURWr5 aKsyJ95xw3Z1IifbD0hxFSDdMMr wZCExTZrfkLBvUKz9QVWmkBQrtt WwShJkPMQiqROskIG6JNJbJL5lk sntQGdeYJjwBNAtydR9SVSkdOIr I5RiVXTrFK3rigdrIPC7FDaiIWS mYVX9HaTbNBFmh7Nyuog0DkOhuV FyZFxwbGFpblxmczIwXGNmMSBFc 13myDZeTYCrWNH2x68seLjozWM5 CAHHEqYbDB9yoMIefG== [facility] Work Phone: Disclaimer g1ztgCMxTTYieQWwEoFy MDAwXGF nn9otGKVwaTAsFtJjKqBuJtTuGm uuuAGrIZYfFrPtd4utl643kERif 2ndKOAdFuH3lLUmQTIhI83eFCZD K420IUVyRCjjs8exz7HgTRYceDI or7C8HYEYRKfiQYTLNOn6xWxsF6 8fr9R6SfdmH6dpSKLwAOIdT2RtG Q0nIZLmJwu4OLY7KTA9LDMgXBEx T0BwQW8tEVWemFYkDKd3h9jpwXo dZIXgARG6h9nuMAkqosOqXX5bfg 1hcDf8t9orsbEnGCFpTBAyiHTLK UXhN0KtbUfrPp5etZy9ySaiFhpf ROB0Lpy2KR2tdd98urc9iHwjLOI zuieiOjB4SXegZOSlnpakKUh0WD lsXOEihQI8RVNluUVsM0UpSDJsF J0zryx1TNG4RPkrVLObWbM3XVJi oKFsSKFifChxPEags414WSE1EiV bGW7zL6Cvu7I7rR3ktXKgKAUrgJ PtDoMuRJRxab0teKZnFQntq1MgU IG3juC6hPDkjOJiZYOxMH52Bgdm w4HxMsddDFN5RJXgpaNvf3Maw9v mDeAtxhHuH6vnP3MwBNYnDUFcNR OlCxYmhdDjo6Xyx1YoiFDztFw5u 4hxQCYpJLEanRvil6saVEJ7TQHg D3N3sUSmh9fcYVkfMIDqoVL9ozW 1OTHibCEvB3EbtB3ePGVlMA7toz k4d6vyBHG7BBxxETXtIqQ2ktY3P UIgnXDiYSGhcNxaZJyia956FSW7 McWbZPQuo8RuW7CvmYgaY06nsHp vS02fJNZraQiwkR2uiZvnnE7pVb BcZnMyNFxxbFxwbGFpblxmMVxmc kP7WVkklqfiXMVwXGquM9ntQxCl EARyxFyjIQotc4MaAPOjAMMuZZM vOXnbY1bckC7wgbbiMCzrWYNmaK fip6rvDqTgmOM8WA3qvnKkWXDma QjnfoI9eoMyaArivW2tjY8gkQje dG3nuHJjzCO2ftgiLSerUWMbxUN diZygrsvlbHulzEammdwpbW6rHP P3eKMwOCS4hKUkIJRmPRZsVUYbk O87gc3iaMZiibQqG0NdS0SvdYLj dVzfSfgnwFRbjNFaKz4mvMFjNI5 yIDIxkVUqT5HlIV3sCQBolycoWF UvXPvnMRVjCKRcXcOdokDwd6Dmo E9tTMJwQIUhYP21foVirpF2xANt YWJvdmUgdGVzdHMgaXMgcmVndWx igXYxRWKmQWKkHCMiVPr5iWDdt5 PxU1krzWDyojJuN7NtpIZtTDJEG I6mOOrle4IhjSLhzTNhd6FwFBFg TNXqoI9gDRYgRV9pLEAiHOieWQF mfiXwvw4iikOsUWUyHKWpJ3Gcpk dwbJnlhqTcOLNkpm0kpkSvZQY5I HRoZSBjbGluaWNhbCBsYWJvcmF0 r5CsZCUov1JnL9MzbSTdPQIotPZ kFEG8w8SowC1hQZsqoYMlZFQmWM 5vdCBiZWVuIGNsZWFyZWQgYnkgd PvxDOUPMBAvq7MyKN3oPWBgxTkq YETsgW5hp2BvMUEjh71fSDRVHGp uIFRoZSBGREEgaGFzIGRldGVybW luZWQgdGhhdCBzdWNoIGNsZWFyY K7xQUSihbOedIOgh0IzrLXadnSu q0LxqqGsZQNaTMT4FlLqoGCkLTA pmrAVdTmgaO0aoN9an5HksI9eNM yoonFfmQAaWn8xiQCjXI5xUXSxd qQhAfomZWNpMvKeQTNaVLCrm3B7 BL7fBPAnzn6ukemqfIRwbJ9hlEN fwyJoCQ6sMJ7tN6X6oKOkRNWzbb Iyv3xbGKs2rFQtHIEmwFNejICrK aflDTH6MNYgEZG6fkNxiaVdPPTq bEssdTH5nRChSVAmCKVhYFKiDT1 7T7Mwl8RbX2jtNR47OXLdGYXiLR HkxeSgs7xdSQBhh2lsTDRprOWzU 4BmSSTeoVNzkhxrYpZmRUR2VLIe HLU7qVDmNPXoS8MwfOEfdNNznP1 4ES9ezXR5TK8pCKM4MPqgcX0bTw UXiX78be7toQY9l8WpOD5jV3VhJ JHgc9J3iqNqGMOuHK6akGAgMHIo IHZhbGlkYXRlZCBvbiBkZWNhbGN kUgtjQAI3jYLngWRkIjPTXXN9nF YfUKDjg0DsNBHnLLOicmSivuMpF QMwQJS9iWBvREVieKBii36wO8k6 YL0vxCziVGMbnXRtXJYgh8IemKL yxNs7nNPjOsNpDPlaQPBeCQpwzS h5mKA5TM3vGVLhL4XxH9npoXGcW TGqOJBqcBGgkm2omKPyaA== [employer] Work Phone: [employer] f8hsmTLkKMZmwBIrXUfa Znk4mCH jy0R3uoenXZ0odHtinRs1tZafDT OeoxN4zSDaIXpsa9nrVTJ5g4twk ryiASXnFUqtNf5kjNDhuEncTtEi F5Mio0BjAIl6hY54RYRlqL0pgOE qUZw6HJRtnYQucuQcQmUwNIQayD KlkBZ9WXRaMY6pnokuKWngGAkkH OFtinC5NEFmeHUhK6ZtHQFoXA1d yqzeFZI0VFtkRQZuCWM6JfKqIMY fr5Lzaan0CaAkpWHmXWsdlCDeqz gcgtLkDCUpA3OjlsXmFOsmFBHti i6xySbtZJbkHvIhERCeFwqey2Lq wGLeMB76vsFoSIKul8JznGioeiA bVRApsWQiTC1ljXuwwuxlVSXpTL Qhj9UeFACpgi3ldQ4yVGRdj7R8U PIjsoDarJIbtAHsrgSrC8qsChRy wbSmlLpiCHXjb46fHS7cMCAkBDE aRSMrcK6hLPJwHQYovKTvvU2jle TdxhJkqzYmsqRjrADvmUQmgVP5K JZvdO2bs20kYJZvu0JmeVPpKdWm XHBhcn0= [employer] Work Phone: Pathologist Interpretation Location [facility], [address] [place] [address], [facility] [id number], CLIA: [id number]; Joint Commission: [id number]; CAP: [id number] [employer] Work Phone: Pathology report final diagnosis Narrative r8vvhXGwOREalYWdHVyuDdeinsV eGNMeoRDjE8NfudtvKOynYY4kEM 7izHqfvFYriQRrRQKiGrVdc3cfj 402pCNbl9ksULVPKXibNVEHTYy3 eGduA51yi3E2VnhdK67bvAHsBIV 6VMOhNNTbdGIfNXIoMHF6FXIncB KsS8mrSBZaWA5smutmPWvsVJfvF GSqsKZ8LIZtuVElG5TeDPSqXQlm JDNimlz3OqKhJm4vbZFhpIihPCw pURQlYVSjODthFVSgQbKuH1IBXE JXORspWN4GSyJCDFACJJ5IM2q8M FxwYXIgLSBDSFJPTklDIElOQUNU BHIFRFvXJ8YPURVDXxqoTrHKWIH AGvTcNk7EWBzkFGYLCD7LAOGLRD NVNkFpD2YYCB5tHYUaigvfKBJnV 03JIBTKMUzrKQ0dcYxhLHF8MTfb vCLhj3aof3BfV8ivrWavhZQ0DEW aWZPbk4JnEODnaZ7sA73yCFRsj4 21ox2xHM5sORPcbEFiUIGqLYSxa ZTdhxQgmc2iNEUhn9BjIEUvTQGg OVOhxlYrKPAmIg5ghG90ouerqYP cVZNzztApWOBVLwLIDJ7ILSMfWJ xQFbIucxAfx65nLNDbwdNxf0zbD hWCFTlnoAr9TM4ptCSjQSRgwa1= [employer] Work Phone: [employer] Work Phone: No Panel Informationon 03-09 Atypical Lymphocytes Manual [facility] Bands Manual 8 [facility] Basophils Manual [facility] Blasts Manual [facility] Eosinophils Manual 3 High 0 - 1 [facility] Interpretation and review of laboratory results Abnormal [facility] Lymphocytes Manual 13 [facility] Metamyelocytes Manual 1 [facility] Monocytes Manual 4 [facility] Myelocytes Manual [facility] Neutrophils Manual 70 [facility] Promyelocytes Manual [facility] Unclassified Cells, Manual [facility] 30on 03-08-2024 30 Problem: Pain - Adul t Goal: Verbalizes/displays adequate comfort level or baseline comfort level 03/08/20242245 by Neelima Peng, RN Outcome: Progressing 03/08/20241910 by Neelima Peng, RN Outcome: Progressing Problem: Safety - Adult Goal: Free from fall injury 03/08/20242245 by Neelima Peng, RN Outcome: Progressing 03/08/20241910 by Neelima Peng, RN Outcome: Progressing Normal [facility] 30 The patient is Moder ately Stable - Low risk of patient condition declining or worsening The patient's goals for the shift include admission and pain control The clinical goals for the shift include admission Normal [facility] 30 Problem: [...] Anion gap [Moles/Vol] 6 mmol/L Normal 3-13 [facility] Comment on above: Performed By: #### L AB15 ####Manager Shell: LACY OROSCO ([id number])[address] Calcium [Mass/Vol] 10.0 mg/dL Normal 8.4-10.4 [facility] Comment on above: Performed By: #### L AB15 ####Manager Shell: LACY OROSCO ([id number])[facility] ([facility])[address] [place] [address] Chloride [Moles/Vol] 103 mmol/L Normal 98-107 [facility] Comment on above: Performed By: #### L AB15 ####Manager Shell: LACY OROSCO ([id number])[facility])[address] [place] [address] CO2 [Moles/Vol] 22 mmol/L Normal 22-30 [facility] Comment on above: Performed By: #### L AB15 ####Manager Shell: LACY OROSCO ([id number])[facility])[address] [place] [address] Creatinine [Mass/Vol] 2.12 mg/dL High 0.52-1.04 [facility] Comment on above: Performed By: #### L AB15 ####Manager Shell: LACY OROSCO ([id number])[facility])[address] [place] [address] GLOMERULAR FILTRATION RATE ML/MIN/1.73 SQ M.PREDICTED 25.4 mL/min/1.73m*2 Low >60.0 [facility] Comment on above: Result Comment: Calc ulation based on the Chronic Kidney Disease Epidemiology Collaboration (CKD-EPI) equation refit without adjustment for race Performed By: #### L AB15 ####Manager Shell: LACY OROSCO ([id number])[facility])[address] [place] [address] Glucose [Mass/Vol] 102 mg/dL High 70-100 [facility] Comment on above: Performed By: #### L AB15 ####Manager Shell: LACY OROSCO ([id number])[facility])[address] [place] [address] Potassium [Moles/Vol] 3.7 mmol/L Normal 3.5-5.1 [facility] Comment on above: Performed By: #### L AB15 ####Manager Shell: LACY OROSCO ([id number])[facility])[address] [place] [address] Sodium [Moles/Vol] 130 mmol/L Low 135-145 [facility] Comment on above: Performed By: #### L AB15 ####Manager Shell: LACY OROSCO ([id number])[facility] ([facility])[address] [place] [address] Urea nitrogen [Mass/Vol] 54 mg/dL High 7-17 [facility] Comment on above: Performed By: #### L AB15 ####Manager Shell: LACY OROSCO ([phone])[facility] [place] [address] Basic metabolic 1998 panelon 03-08-2024 Anion gap [Moles/Vol] 6 mmol/L 3 - 13 mmol/L [facility] Calcium [Mass/Vol] 10 mg/dL 8.4 - 10. 4 mg/dL [facility] Chloride [Moles/Vol] 103 mmol/L 98 - 10 7 mmol/L [facility] CO2 [Moles/Vol] 22 mmol/L 22 - 30 mmol/L [facility] Creatinine [Mass/Vol] 2.12 mg/dL High 0.52 - 1.04 mg/dL [facility] GFR/1.73 sq M.predicted (S/P/Bld) [Vol rate/Area] 25.4 mL/min Low - PINF [facility] Comment on above: Calculation based on the Chronic Kidney Disease Epidemiology Collaboration (CKD-EPI) equation refit without adjustment for race Glucose [Mass/Vol] 102 mg/dL High 70 - 100 mg/dL [facility] Interpretation and review of laboratory results Abnormal [facility] Potassium [Moles/Vol] 3.7 mmol/L 3.5 - 5.1 mmol/L [facility] Sodium [Moles/Vol] 130 mmol/L Low 135 - 145 mmol/L [facility] Urea nitrogen [Mass/Vol] 54 mg/dL High 7 - 17 mg/dL [facility] CBC W Auto Differential pane l (Bld)on 03-08-2024 Erythrocyte distribution width (RBC) [Ratio] 15.4 % High 11.5 - 15.0 % [facility] Hematocrit (Bld) [Volume fraction] 34 % Low 35.0 - 47.0 % [facility] Hemoglobin (Bld) [Mass/Vol] 11.1 g/dL Low 11.7 - 16.0 g/dL [facility] Interpretation and review of laboratory results Abnormal [facility] MCH (RBC) [Entitic mass] 25.8 pg Low 26.0 - 34.0 pg [facility] MCHC (RBC) [Mass/Vol] 32.6 % 30.5 - 36.0 % [facility] MCV (RBC) [Entitic vol] 79.1 fL 77.0 - 99.0 fL [facility] Platelet mean volume (Bld) [Entitic vol] 10.5 fL 9.0 - 12.7 fL [facility] Platelets (Bld) [#/Vol] 453 10*3/uL High 140 - 440 10*3/uL [facility] RBC (Bld) [#/Vol] 4.3 10*6/uL 3.80 - 5.20 10*6/uL [facility] WBC (Bld) [#/Vol] 13 10*3/uL High 3.6 - 10.7 10*3/uL [facility] CBC WITH AUTO DIFFERENTIALon 03-08-2024 Erythrocyte distribution width (RBC) [Ratio] 15.4 % High 11.5-15.0 [facility] Comment on above: Performed By: #### L [id number], [id number] ####Manager Shell: LACY OROSCO ([phone])[facility])[address] [place] [address] Hematocrit (Bld) [Volume fraction] 34.0 % Low 35.0-47.0 [facility] Comment on above: Performed By: #### L [id number], [id number] ####Manager Shell: LACY OROSCO ([phone])[facility] ([facility])[address] [place] [address] [place] Hemoglobin (Bld) [Mass/Vol] 11.1 g/dL Low 11.7-16.0 [facility] Comment on above: Performed By: #### L [id number], [id number] ####Manager Shell: LACY OROSCO ([phone])[facility])[address] [place] [address] MCH (RBC) [Entitic mass] 25.8 pg Low 26.0-34.0 [facility] Comment on above: Performed By: #### L [id number], [id number] ####Manager Shell: LACY OROSCO ([id number])[facility] ([facility])[address] [place] [address] MCHC 32.6 % Normal 30.5-36.0 [facility] Comment on above: Performed By: #### L [id number], [id number] ####Manager Shell: LACY OROSCO ([phone])[facility] ([facility])[address] [place] [address] MCV (RBC) [Entitic vol] 79.1 fL Normal 77.0-99.0 [facility] Comment on above: Performed By: #### L [id number], [id number] ####Manager Shell: LACY OROSCO ([phone])[facility])[address] [place] [address] Platelet mean volume (Bld) [Entitic vol] 10.5 fL Normal 9.0-12.7 [facility] Comment on above: Performed By: #### Glory [id number], [id number] ####Manager Shell: LACY OROSCO ([id number])[facility] ([facility])[address] [place] [address] Platelets (Bld) [#/Vol] 453 10*3/uL High 140-440 [facility] Comment on above: Performed By: #### L [id number], [id number] ####Manager Shell: LACY OROSCO ([phone])[facility] ([facility])[address] [place] [address] RBC (Bld) [#/Vol] 4.30 10*6/uL Normal 3.80-5.20 [facility] Comment on above: Performed By: #### L [id number], [id number] ####Manager Shell: LACY OROSCO ([phone])[facility])[address] [place] [address] WBC (Bld) [#/Vol] 13.0 10*3/uL High 3.6-10.7 [facility] Comment on above: Performed By: #### L [id number], [id number] ####Manager Shell: LACY OROSCO ([phone])[facility] ([facility])[address] [place] [address] Laboratory - Chemistry and C hemistry - challengeon 03-08-2024 Sodium (24H U) [Mass/Vol] 70 mmol/L 30 - 90 mmol/L [facility] MANUAL DIFFERENTIALon 2023 BAND NEUTROPHILS TOTAL PER COUNTED LEUKOCYTES BY MANUAL COUNT 3 Normal [facility] Comment on above: Performed By: #### L [id number], [id number] ####Manager Shell: LACY OROSCO ([phone])[facility] ([facility])[address] [place] [address] BANDS 0.4 10*3/uL High <=0.0 [facility] Comment on above: Performed By: #### L [id number], [id number] ####Manager Shell: LACY OROSCO ([phone])[facility])[address] [place] [address] CELLS COUNTED TOTAL (#) IN BLOOD 100 Normal [facility] Comment on above: Performed By: #### L [id number], [id number] ####Manager Shell: LACY OROSCO ([phone])[facility])[address] [place] [address] DIFFERENTIAL METHOD Manual differential performed Normal [facility] Comment on above: Performed By: #### L [id number], [id number] ####Manager Shell: LACY OROSCO ([phone])[facility])[address] [place] [address] EOSINOPHILS (10*3/UL) IN BLOOD BY MANUAL COUNT 0.4 10*3/uL Normal 0.0-0.5 [facility] Comment on above: Performed By: #### L [id number], [id number] ####Manager Shell: LACY OROSCO ([phone])[facility])[address] [place] [address] EOSINOPHILS TOTAL PER COUNTED LEUKOCYTES BY MANUAL COUNT 3 High 0-1 [facility] Comment on above: Performed By: #### L [id number] ####Manager Shell: LACY OROSCO ([phone])[facility])[address] [place] [address] [place] EOSINOPHILS/100 LEUKOCYTES IN BLOOD BY MANUAL COUNT 3 % Normal 0-6 [facility] Comment on above: Performed By: #### L [id number], [id number] ####Manager Shell: LACY OROSCO ([phone])[facility])[address] [place] [address] LEUKOCYTE MORPHOLOGY FINDING IN BLOOD Normal Normal [facility] Comment on above: Performed By: #### L [id number], [id number] ####Manager Shell: LACY OROSCO ([phone])[facility])[address] [place] [address] LEUKOCYTES (10*3/UL) NUCLEATED ERYTHROCYTE ADJUST 13.0 10*3/uL High 3.6-10.7 [facility] Comment on above: Performed By: #### Glory [id number], [id number] ####Manager Shell: LACY OROSCO ([phone])[facility])[address] [place] [address] LYMPHOCYTES (10*3/UL) IN BLOOD BY MANUAL COUNT 3.1 10*3/uL Normal 1.0-4.3 [facility] Comment on above: Performed By: #### L [id number], [id number] ####Manager Shell: LACY OROSCO ([phone])[facility])[address] [place] [address] [place] LYMPHOCYTES TOTAL PER COUNTED LEUKOCYTES BY MANUAL COUNT 24 Normal [facility] Comment on above: Performed By: #### L [id number], [id number] ####Manager Shell: LACY OROSCO ([phone])[facility])[address] [place] [address] [place] LYMPHOCYTES/100 LEUKOCYTES IN BLOOD BY MANUAL COUNT 24 % Normal 15-45 [facility] Comment on above: Performed By: #### L [id number], [id number] ####Manager Shell: LACY OROSCO ([phone])[facility] ([facility])[address] [place] [address] [place] METAMYELOCYTES (10*3/UL) IN BLOOD BY MANUAL COUNT 0.3 10*3/uL High <=0.0 [facility] Comment on above: Performed By: #### L [id number], [id number] ####Manager Shell: LACY OROSCO ([id number])[facility] ([facility])[address] [place] [address] [place] METAMYELOCYTES TOTAL PER COUNTED LEUKOCYTES BY MANUAL COUNT 2 Normal [facility] Comment on above: Performed By: #### L [id number], [id number] ####Manager Shell: LACY OROSCO ([phone])[facility])[address] [place] [address] [place] METAMYELOCYTES/100 LEUKOCYTES IN BLOOD BY MANUAL COUNT 2 % High <=0 [facility] Comment on above: Performed By: #### L [id number], [id number] ####Manager Shell: LACY OROSCO ([phone])[facility] ([facility])[address] [place] [address] [place] MONOCYTES (10*3/UL) IN BLOOD BY MANUAL COUNT 1.0 10*3/uL High 0.0-0.9 [facility] Comment on above: Performed By: #### L [id number], [id number] ####Manager Shell: LACY OROSCO ([phone])[facility] ([facility])[address] [place] [address] [place] MONOCYTES TOTAL PER COUNTED LEUKOCYTES BY MANUAL COUNT 8 Normal [facility] Comment on above: Performed By: #### L [id number], [id number] ####Manager Shell: LACY OROSCO ([id number])[facility] ([facility])[address] [place] [address] [place] MONOCYTES/100 LEUKOCYTES IN BLOOD BY MANUAL COUNT 8 % Normal 5-13 [facility] Comment on above: Performed By: #### L [id number], [id number] ####Manager Shell: LACY OROSCO ([phone])[facility] ([facility])[address] [place] [address] [place] MYELOCYTES (10*3/UL) IN BLOOD BY MANUAL COUNT 0.3 10*3/uL High <=0.0 [facility] Comment on above: Performed By: #### L [id number], [id number] ####Manager Shell: LACY OROSCO ([id number])[facility] ([facility])[address] [place] [address] [place] MYELOCYTES COUNTED BY MANUAL COUNT 2 Normal [facility] Comment on above: Performed By: #### L [id number], [id number] ####Manager Shell: LACY OROSCO ([phone])[facility])[address] [place] [address] [place] MYELOCYTES/100 LEUKOCYTES IN BLOOD BY MANUAL COUNT 2 % High <=0 [facility] Comment on above: Performed By: #### Glory [id number], [id number] ####Manager Shell: LACY OROSCO ([phone])[facility] ([facility])[address] [place] [address] [place] NEUTROPHILS (SEGS+BANDS) (10*3/UL) BY MANUAL COUNT 7.9 10*3/uL High 1.8-7.0 [facility] Comment on above: Performed By: #### Glory [id number], [id number] ####Manager Shell: LACY OROSCO ([id number])[facility] ([facility])[address] [place] [address] [place] NEUTROPHILS BAND FORM/100 LEUKOCYTES IN BLOOD BY MANUAL COUNT 3 % High <=0 [facility] Comment on above: Performed By: #### L [id number], [id number] ####Manager Shell: LACY OROSCO ([phone])[facility])[address] [place] [address] [place] NEUTROPHILS TOTAL PER COUNTED LEUKOCYTES BY MANUAL COUNT 58 Normal [facility] Comment on above: Performed By: #### L [id number], [id number] ####Manager Shell: LACY OROSCO ([phone])[facility] ([facility])[address] [place] [address] [place] OVALOCYTES PRESENCE IN BLOOD BY LIGHT MICROSCOPY Rare Abnormal (none) [facility] Comment on above: Performed By: #### L [id number], [id number] ####Manager Shell: LACY OROSCO ([phone])[facility])[address] [place] [address] PLATELET MORPHOLOGY IN BLOOD Normal Normal [facility] Comment on above: Performed By: #### L [id number], [id number] ####Manager Shell: LACY OROSCO ([phone])[facility])[address] [place] [address] POIKILOCYTOSIS (PRESENCE) IN BLOOD BY LIGHT MICROSCOPY Rare Abnormal (none) [facility] Comment on above: Performed By: #### L [id number], [id number] ####Manager Shell: LACY OROSCO ([phone])[facility])[address] [place] [address] SEGEMENTED NEUTROPHILS/100 LEUKOCYTES BY MANUAL COUNT 58 % Normal 38-82 [facility] Comment on above: Performed By: #### L [id number], [id number] ####Manager Shell: LACY OROSCO ([phone])[address] SEGMENTED NEUTROPHILS (10*3/UL)IN BLOOD BY MANUAL COUNT 7.9 10*3/uL High 1.8-7.5 [facility] Comment on above: Performed By: #### L [id number], [id number] ####Manager Shell: LACY OROSCO ([phone])[facility])[address] [place] [address] Manual differential performe d Ql (Bld)on 03-08-2024 Band form neutrophils (Bld) [#/Vol] 0.4 10*3/uL High NINF - 0.0 10*3/uL [facility] Band form neutrophils/100 WBC (Bld) 3 % High NINF - 0 % [facility] Bands Manual 3 [facility] Cells Counted Total (Bld) [#] 100 {cells} [facility] Differential Method Manual differential performed [facility] Eosinophils (Bld) [#/Vol] 0.4 10*3/uL 0.0 - 0.5 10*3/uL [facility] Eosinophils Manual 3 High 0 - 1 [facility] Eosinophils/100 WBC (Bld) 3 % 0 - 6 % [facility] Interpretation and review of laboratory results Abnormal [facility] Leukocyte morphology finding Nom (Bld) Normal [facility] Lymphocytes (Bld) [#/Vol] 3.1 10*3/uL 1.0 - 4.3 10*3/uL [facility] Lymphocytes Manual 24 [facility] Lymphocytes/100 WBC (Bld) 24 % 15 - 45 % [facility] Metamyelocytes (Bld) [#/Vol] 0.3 10*3/uL High NINF - 0.0 10*3/uL [facility] Metamyelocytes Manual 2 [facility] Metamyelocytes/100 WBC (Bld) 2 % High NINF - 0 % [facility] Monocytes (Bld) [#/Vol] 1 10*3/uL High 0.0 - 0.9 10*3/uL [facility] Monocytes Manual 8 [facility] Monocytes/100 WBC (Bld) 8 % 5 - 13 % [facility] Myelocytes (Bld) [#/Vol] 0.3 10*3/uL High NINF - 0.0 10*3/uL [facility] Myelocytes Manual 2 [facility] Myelocytes/100 WBC (Bld) 2 % High NINF - 0 % [facility] Neutrophils (Bld) [#/Vol] 7.9 10*3/uL High 1.8 - 7.5 10*3/uL [facility] Neutrophils Manual 58 [facility] Ovalocytes LM Ql (Bld) Rare Abnormal (none) [facility] Platelet morphology finding Nom (Bld) Normal [facility] Poikilocytosis LM Ql (Bld) Rare Abnormal (none) [facility] Segmented neutrophils/100 WBC (Bld) 58 % 38 - 82 % [facility] WBC corrected for nucl RBC (Bld) [#/Vol] 13 10*3/uL High 3.6 - 10.7 10*3/uL [facility] No Panel Informationon 03-08 Interpretation and review of laboratory results Normal [facility] No Panel InformationOrdered By: Jah Galloway on 03-08-2024 Interpretation and review of laboratory results Normal [facility] OSMOLALITY, URINE 423 [facility] Nursing Noteon 03-08-2024 Nursing Note [...] on above: Performed By: #### L [id number], [id number] ####Manager Shell: LACY OROSCO ([phone])[facility] ([facility] [place] [address] Progress Noteon 03-08-2024 Progress Note ------- Attestation signed by Pepito Steve MD at 03/08/2024 2:49 PM Notes reviewed and plan discussed with the PA. Agree with above note except Any variance is noted below. Pepito Steve MD [facility] [phone] [facility] Nephrology Progress Note Subjective/ 63 [...] fever or chills. No interval changes to [facility]. All interval notes/labs/imaging reviewed. Objective/ Vitals: 03/07/24 [...] any questions or concerns. TRUDI Domingo, PA-C [facility] Office This note is not finalized until authorized by Attending physician. [facility] SODIUM, URINE, RANDOMon 02-15 Sodium (U) [Moles/Vol] 70 mmol/L Normal 30-90 [facility] Comment on above: Performed By: #### L [id number], [id number] ####Manager Shell: LACY OROSCO ([phone])[facility] ([facility])[address] [place] [address] 30on 03-07-2024 30 Problem: Pain - Adul [...] 8 weeks. Not established, patient lives in [place], please call and see if she would like to follow up with us and if not send records to her preferred follow up physician. Normal [facility] BASIC METABOLIC PANELon 02-15 Anion gap [Moles/Vol] 13 mmol/L Normal 3-13 [facility] Comment on above: Performed By: #### L AB15 ####Manager Shell: LACY OROSCO ([phone])[facility] ([facility])[address] [place] [address] Calcium [Mass/Vol] 10.6 mg/dL High 8.4-10.4 [facility] Comment on above: Performed By: #### L AB15 ####Manager Shell: LACY OROSCO ([phone])[facility] ([facility])[address] Chloride [Moles/Vol] 105 mmol/L Normal 98-107 [facility] Comment on above: Performed By: #### L AB15 ####Manager Shell: LACY OROSCO ([id number])[facility] ([facility])[address] [place] [address] CO2 [Moles/Vol] 15 mmol/L Low 22-30 [facility] Comment on above: Performed By: #### L AB15 ####Manager Shell: LACY OROSCO ([phone])[facility] [place] [address] Creatinine [Mass/Vol] 2.35 mg/dL High 0.52-1.04 [facility] Comment on above: Performed By: #### L AB15 ####Manager Shell: LACY OROSCO ([phone])[facility] ([facility])[address] [place] [address] GLOMERULAR FILTRATION RATE ML/MIN/1.73 SQ M.PREDICTED 22.5 mL/min/1.73m*2 Low >60.0 [facility] Comment on above: Result Comment: Calc ulation based on the Chronic Kidney Disease Epidemiology Collaboration (CKD-EPI) equation refit without adjustment for race Performed By: #### L AB15 ####Manager Shell: LACY OROSCO ([phone])[facility] ([facility])[address] [place] [address] Glucose [Mass/Vol] 117 mg/dL High 70-100 [facility] Comment on above: Performed By: #### L AB15 ####Manager Shell: LACY OROSCO ([phone])[facility] ([facility])[address] [place] [address] [place] Potassium [Moles/Vol] 4.0 mmol/L Normal 3.5-5.1 [facility] Comment on above: Performed By: #### L AB15 ####Manager Shell: LACY [id number])[facility] ([facility])[address] [place] [address] Sodium [Moles/Vol] 133 mmol/L Low 135-145 [facility] Comment on above: Performed By: #### L AB15 ####Manager Shell: LACY OROSCO ([phone])[address] Urea nitrogen [Mass/Vol] 55 mg/dL High 7-17 [facility] Comment on above: Performed By: #### L AB15 ####Manager Shell: LACY OROSCO ([id number])[facility] ([facility])[address] [place] [address] Basic metabolic 1998 panelon 03-07-2024 Anion gap [Moles/Vol] 13 mmol/L 3 - 13 mmol/L [facility] Calcium [Mass/Vol] 10.6 mg/dL High 8.4 - 10. 4 mg/dL [facility] Chloride [Moles/Vol] 105 mmol/L 98 - 10 7 mmol/L [facility] CO2 [Moles/Vol] 15 mmol/L Low 22 - 30 mmol/L [facility] Creatinine [Mass/Vol] 2.35 mg/dL High 0.52 - 1.04 mg/dL [facility] GFR/1.73 sq M.predicted (S/P/Bld) [Vol rate/Area] 22.5 mL/min Low - PINF [facility] Comment on above: Calculation based on the Chronic Kidney Disease Epidemiology Collaboration (CKD-EPI) equation refit without adjustment for race Glucose [Mass/Vol] 117 mg/dL High 70 - 100 mg/dL [facility] Interpretation and review of laboratory results Abnormal [facility] Potassium [Moles/Vol] 4 mmol/L 3.5 - 5.1 mmol/L [facility] Sodium [Moles/Vol] 133 mmol/L Low 135 - 145 mmol/L [facility] Urea nitrogen [Mass/Vol] 55 mg/dL High 7 - 17 mg/dL [facility] CBC W Auto Differential pane l (Bld)Ordered By: Dwayne Gibson on 03-07-2024 Erythrocyte distribution width (RBC) [Ratio] 15.4 % High 11.5 - 15.0 % [facility] Hematocrit (Bld) [Volume fraction] 40.2 % 35.0 - 47.0 % [facility] Hemoglobin (Bld) [Mass/Vol] 12.9 g/dL 11.7 - 16.0 g/dL [facility] Interpretation and review of laboratory results Abnormal [facility] MCH (RBC) [Entitic mass] 25.9 pg Low 26.0 - 34.0 pg [facility] MCHC (RBC) [Mass/Vol] 32.1 % 30.5 - 36.0 % [facility] MCV (RBC) [Entitic vol] 80.7 fL 77.0 - 99.0 fL [facility] Platelet mean volume (Bld) [Entitic vol] 11.3 fL 9.0 - 12.7 fL [facility] Platelets (Bld) [#/Vol] 548 10*3/uL High 140 - 440 10*3/uL [facility] RBC (Bld) [#/Vol] 4.98 10*6/uL 3.80 - 5.20 10*6/uL [facility] WBC (Bld) [#/Vol] 19 10*3/uL High 3.6 - 10.7 10*3/uL [facility] CBC WITH AUTO DIFFERENTIALon 03-07-2024 Erythrocyte distribution width (RBC) [Ratio] 15.4 % High 11.5-15.0 [facility] Comment on above: Performed By: #### Glory [id number], [id number] ####Manager Shell: LACY OROSCO ([phone])[address] Hematocrit (Bld) [Volume fraction] 40.2 % Normal 35.0-47.0 [facility] Comment on above: Performed By: #### Glory [id number], [id number] ####Manager Shell: LACY OROSCO ([phone])[facility])[address] [place] [address] Hemoglobin (Bld) [Mass/Vol] 12.9 g/dL Normal 11.7-16.0 [facility] Comment on above: Performed By: #### L [id number], [id number] ####Manager Shell: LACY OROSCO ([phone])[facility])[address] [place] [address] MCH (RBC) [Entitic mass] 25.9 pg Low 26.0-34.0 [facility] Comment on above: Performed By: #### Glory [id number], [id number] ####Manager Shell: LACY OROSCO ([phone])[facility])[address] [place] [address] MCHC 32.1 % Normal 30.5-36.0 [facility] Comment on above: Performed By: #### Glory [id number], [id number] ####Manager Shell: LACY OROSCO ([id number])[facility] ([facility])[address] [place] [address] MCV (RBC) [Entitic vol] 80.7 fL Normal 77.0-99.0 [facility] Comment on above: Performed By: #### lGory [id number], [id number] ####Manager Shell: LACY OROSCO ([id number])[facility] ([facility])[address] [place] [address] Platelet mean volume (Bld) [Entitic vol] 11.3 fL Normal 9.0-12.7 [facility] Comment on above: Performed By: #### Glory [id number], [id number] ####Manager Shell: LACY OROSCO ([id number])[facility] ([facility])[address] [place] [address] Platelets (Bld) [#/Vol] 548 10*3/uL High 140-440 [facility] Comment on above: Performed By: #### Glory [id number], [id number] ####Manager Shell: LACY OROSCO ([id number])[facility])[address] [place] [address] RBC (Bld) [#/Vol] 4.98 10*6/uL Normal 3.80-5.20 [facility] Comment on above: Performed By: #### L [id number], [id number] ####Manager Shell: LACY OROSCO ([phone])[facility])[address] [place] [address] WBC (Bld) [#/Vol] 19.0 10*3/uL High 3.6-10.7 [facility] Comment on above: Performed By: #### L [id number], [id number] ####Manager Shell: LACY OROSCO ([phone])[facility] ([facility])[address] Laboratory - Hematology and Cell countson 03-07-2024 [...] % 0 - 2 % [facility] cells LM Ql (Bld) Moderate Abnormal (none) [...] Polychromasia LM Ql (Bld) Slight Abnormal (none) [facility] RBC morphology finding Nom (Bld) abnormal [facility] Segmented neutrophils/100 WBC (Bld) 75 % 38 - 82 % [facility] MANUAL DIFFERENTIAL (CELLAVI DARIUSZ)on 03-07-2024 ACANTHOCYTES (PRESENCE) IN BLOOD BY LIGHT MICROSCOPY Rare Abnormal (none) [facility] Comment on above: Performed By: #### L [id number], [id number] ####Manager Shell: LACY OROSCO ([id number])[facility] ([facility])[address] [place] [address] ANISOCYTOSIS PRESENCE IN BLOOD BY LIGHT MICROSCOPY Slight Abnormal (none) [facility] Comment on above: Performed By: #### L [id number], [id number] ####Manager Shell: LACY OROSCO ([id number])[facility] ([facility])[address] [place] [address] BAND NEUTROPHILS TOTAL PER COUNTED LEUKOCYTES BY MANUAL COUNT 6 Normal [facility] Comment on above: Performed By: #### L [id number], [id number] ####Manager Shell: LACY OROSCO ([id number])[facility] ([facility])[address] [place] [address] [place] BANDS (10*3/UL) IN BLOOD-CELLAVISION 1.1 10*3/uL High <=0.0 [facility] Comment on above: Performed By: #### L [id number], [id number] ####Manager Shell: LACY OROSCO ([id number])[facility] ([facility])[address] [place] [address] [place] BASOPHILS (10*3/UL) IN BLOOD-CELLAVISION 0.2 10*3/uL Normal 0.0-0.2 [facility] Comment on above: Performed By: #### L [id number], [id number] ####Manager Shell: LACY OROSCO ([id number])[facility] ([facility])[address] [place] [address] [place] BASOPHILS TOTAL PER COUNTED LEUKOCYTES BY MANUAL COUNT 1 Normal [facility] Comment on above: Performed By: #### L [id number], [id number] ####Manager Shell: LACY OROSCO ([id number])[facility] ([facility])[address] [place] [address] [place] BASOPHILS/100 LEUKOCYTES IN BLOOD-CELLAVISION 1 % Normal 0-2 [facility] Comment on above: Performed By: #### L [id number], [id number] ####Manager Shell: LACY OROSCO ([id number])[facility] [place] [address] [place] BLASTS TOTAL PER COUNTED LEUKOCYTES BY MANUAL COUNT Normal [facility] Comment on above: Performed By: #### L [id number], [id number] ####Manager Shell: LACY OROSCO ([phone])[facility] ([facility])[address] [place] [address] MAGO CELLS PRESENCE IN BLOOD BY LIGHT MICROSCOPY Moderate Abnormal (none) [facility] Comment on above: Performed By: #### L [id number], [id number] ####Manager Shell: LACY OROSCO ([id number])[facility] [place] [address] [place] EOSINOPHILS TOTAL PER COUNTED LEUKOCYTES BY MANUAL COUNT Normal [facility] Comment on above: Performed By: #### L [id number], [id number] ####Manager Shell: LACY OROSCO ([phone])[facility] ([facility])[address] [place] [address] [place] LYMPHOCYTES (10*3/UL) IN BLOOD-CELLAVISION 2.5 10*3/uL Normal 1.0-4.3 [facility] Comment on above: Performed By: #### L [id number], [id number] ####Manager Shell: LACY OROSCO ([phone])[facility] ([facility])[address] [place] [address] [place] LYMPHOCYTES TOTAL PER COUNTED LEUKOCYTES BY MANUAL COUNT 13 Normal [facility] Comment on above: Performed By: #### L [id number], [id number] ####Manager Shell: LACY OROSCO ([phone])[facility] ([facility])[address] [place] [address] [place] LYMPHOCYTES/100 LEUKOCYTES IN BLOOD-CELLAVISION 13 % Low 15-45 [facility] Comment on above: Performed By: #### L [id number], [id number] ####Manager Shell: LACY OROSCO ([id number])[facility])[address] [place] [address] [place] MACROCYTES (PRESENCE) IN BLOOD BY LIGHT MICROSCOPY Slight Abnormal (none) [facility] Comment on above: Performed By: #### L [id number], [id number] ####Manager Shell: LACY OROSCO ([id number])[facility] ([facility])[address] [place] [address] [place] METAMYELOCYTES TOTAL PER COUNTED LEUKOCYTES BY MANUAL COUNT Normal [facility] Comment on above: Performed By: #### L [id number], [id number] ####Manager Shell: LACY ORSOCO ([id number])[facility])[address] [place] [address] [place] MICROCYTES (PRESENCE) IN BLOOD BY LIGHT MICROSCOPY Slight Abnormal (none) [facility] Comment on above: Performed By: #### L [id number], [id number] ####Manager Shell: LACY OROSCO ([phone])[facility] ([facility])[address] [place] [address] [place] MONOCYTES (10*3/UL) IN BLOOD-CELLAVISION 1.0 10*3/uL High 0.0-0.9 [facility] Comment on above: Performed By: #### L [id number], [id number] ####Manager Shell: LACY OROSCO ([phone])[facility])[address] [place] [address] [place] MONOCYTES TOTAL PER COUNTED LEUKOCYTES BY MANUAL COUNT 5 Normal [facility] Comment on above: Performed By: #### L [id number], [id number] ####Manager Shell: LACY OROSCO ([phone])[facility])[address] [place] [address] [place] MONOCYTES/100 LEUKOCYTES IN BLOOD-SARIKA 5 % Normal 5-13 [facility] Comment on above: Performed By: #### L [id number], [id number] ####Manager Shell: LACY OROSCO ([id number])[facility] ([facility])[address] [place] [address] [place] MYELOCYTES (10*3/UL) IN BLOOD-CELLAVISION 0.2 10*3/uL High <=0.0 [facility] Comment on above: Performed By: #### L [id number], [id number] ####Manager Shell: LACY OROSCO ([phone])[facility] ([facility])[address] [place] [address] [place] MYELOCYTES COUNTED BY MANUAL COUNT 1 Normal [facility] Comment on above: Performed By: #### L [id number], [id number] ####Manager Shell: LACY OROSCO ([phone])[facility] ([facility])[address] [place] [address] [place] MYELOCYTES/100 LEUKOCYTES IN BLOOD-CELLAVISION 1 % High <=0 [facility] Comment on above: Performed By: #### Glory [id number], [id number] ####Manager Shell: LACY OROSCO ([id number])[facility] ([facility])[address] [place] [address] [place] NEUTROPHILS BAND FORM/100 LEUKOCYTES IN BLOOD-CELLAVISI 6 % High <=0 [facility] Comment on above: Performed By: #### L [id number], [id number] ####Manager Shell: LACY OROSCO ([phone])[facility] ([facility])[address] [place] [address] [place] NEUTROPHILS TOTAL PER COUNTED LEUKOCYTES BY MANUAL COUNT 76 Normal [facility] Comment on above: Performed By: #### L [id number], [id number] ####Manager Shell: LACY OROSCO ([phone])[facility] ([facility])[address] [place] [address] [place] POIKILOCYTOSIS (PRESENCE) IN BLOOD BY LIGHT MICROSCOPY Moderate Abnormal (none) [facility] Comment on above: Performed By: #### L [id number], [id number] ####Manager Shell: LACY OROSCO ([id number])[facility] ([facility])[address] [place] [address] POLYCHROMASIA IN BLOOD BY LIGHT MICROSCOPY Slight Abnormal (none) [facility] Comment on above: Performed By: #### L [id number], [id number] ####Manager Shell: LACY OROSCO ([id number])[facility] ([facility])[address] [place] [address] PROMYELOCYTES TOTAL PER COUNTED LEUKOCYTES BY MANUAL COUNT Normal [facility] Comment on above: Performed By: #### L [id number], [id number] ####Manager Shell: LACY OROSCO ([id number])[facility])[address] [place] [address] RBC MORPHOLOGY IN BLOOD abnormal Normal [facility] Comment on above: Performed By: #### L [id number], [id number] ####Manager Shell: LACY OROSCO ([id number])[facility] ([facility])[address] [place] [address] SEGMENTED NEUTROPHILS (10*3/UL) IN BLOOD-CELLAVISION 15.4 10*3/uL High 1.8-7.5 [facility] Comment on above: Performed By: #### L [id number], [id number] ####Manager Shell: LACY OROSCO ([id number])[facility] ([facility])[address] [place] [address] [place] SEGMENTED NEUTROPHILS/100 LEUKOCYTES-CE 75 % Normal 38-82 [facility] Comment on above: Performed By: #### L [id number], [id number] ####Manager Shell: LACY OROSCO ([id number])[facility])[address] [place] [address] UNCLASSIFIED CELLS TOTAL PER COUNTED LEUKOCYTES BY MANUAL COUNT Normal [facility] Comment on above: Performed By: #### L [id number], [id number] ####Manager Shell: LACY OROSCO ([id number])[facility])[address] [place] [address] VARIANT LYMPHOCYTES TOTAL PER COUNTED LEUKOCYTES BY MANUAL COUNT Normal [facility] Comment on above: Performed By: #### L [id number], [id number] ####Manager Shell: LACY OROSCO ([id number])[facility] ([facility])[address] [place] [address] No Panel Informationon 03-07 Atypical Lymphocytes Manual [facility] Bands Manual 6 [facility] Basophils Manual 1 [facility] Blasts Manual [facility] Eosinophils Manual [facility] Interpretation and review of laboratory results Abnormal [facility] Lymphocytes Manual 13 [facility] Metamyelocytes Manual [facility] Monocytes Manual 5 [facility] Myelocytes Manual 1 [facility] Neutrophils Manual 76 [facility] Promyelocytes Manual [facility] Unclassified Cells, Manual [facility] Progress Noteon 03-07-2024 Progress Note NEUROLOGY FOLLOW UP NOTE - Neurology Inpatient Service Patient Name: Eren Merchant Patient : 1960 Acct: [id number] Date of Admission: 03/04/2024 [facility]CP: Priyanka Smith 03/07/2024 Subjective: [...] recent episodes which prompted her transfer to [facility] for further workup. On 02/26/24, patient was talking to her dad on the phone. The next thing she remembers is lying on the ground. She believes she had LOC but does not know duration. Estimates less than one minute. She had another episode while at the urologist's office on 03/03/24. She walked up to director of strategic alliances desk, all of a sudden both arms [...] by mouth Nightly. AVS from 03/03 from [facility] with Dr. Benitez states: discontinue the [...] Current Ho (more content not included)... Normal [facility] 36on 03-06-2024 36 Per Caitlin, sent in error. Will disregard. TY Normal [facility] 36 Patient to have repe at LFTs in 1 week as ordered by primary team during inpatient stay. Please schedule patient for hospital follow up for abdominal pain and elevated LFTs. Normal [facility] BASIC METABOLIC PANELon 10-2 Anion gap [Moles/Vol] 11 mmol/L Normal 3-13 [facility] Comment on above: Performed By: #### L [id number] ####Manager Shell: LACY OROSCO ([id number])[facility] ([facility])[address] [place] [address] Calcium [Mass/Vol] 10.7 mg/dL High 8.4-10.4 [facility] Comment on above: Performed By: #### L [id number] ####Manager Shell: LACY OROSCO ([phone])[facility] ([facility])[address] [place] [address] [place] Chloride [Moles/Vol] 105 mmol/L Normal 98-107 [facility] Comment on above: Performed By: #### L [id number] ####Manager Shell: LACY OROSCO ([phone])[facility])[address] [place] [address] CO2 [Moles/Vol] 16 mmol/L Low 22-30 [facility] Comment on above: Performed By: #### L AB15 ####Manager Shell: LACY OROSCO ([phone])[facility])[address] [place] [address] Creatinine [Mass/Vol] 2.42 mg/dL High 0.52-1.04 [facility] Comment on above: Performed By: #### L AB15 ####Manager Shell: LACY OROSCO ([id number])[facility])[address] [place] [address] GLOMERULAR FILTRATION RATE ML/MIN/1.73 SQ M.PREDICTED 21.7 mL/min/1.73m*2 Low >60.0 [facility] Comment on above: Result Comment: Calc ulation based on the Chronic Kidney Disease Epidemiology Collaboration (CKD-EPI) equation refit without adjustment for race Performed By: #### L AB15 ####Manager Shell: LACY OROSCO ([phone])[facility])[address] [place] [address] Glucose [Mass/Vol] 139 mg/dL High 70-100 [facility] Comment on above: Performed By: #### L AB15 ####Manager Shell: LACY OROSCO ([id number])[facility])[address] [place] [address] [place] Potassium [Moles/Vol] 4.5 mmol/L Normal 3.5-5.1 [facility] Comment on above: Performed By: #### L AB15 ####Manager Shell: LACY OROSCO ([id number])[facility])[address] [place] [address] [place] Sodium [Moles/Vol] 132 mmol/L Low 135-145 [facility] Comment on above: Performed By: #### L AB15 ####Manager Shell: LACY OROSCO ([id number])[address] Urea nitrogen [Mass/Vol] 60 mg/dL High 7-17 [facility] Comment on above: Performed By: #### L AB15 ####Manager Shell: LACY OROSCO ([id number])[address] Bacteria identified Cx Nom ( U)Ordered By: Suresh Russo on 03-06-2024 Interpretation and review of laboratory results Normal [facility] Basic metabolic 1998 panelon 03-06-2024 Anion gap [Moles/Vol] 11 mmol/L 3 - 13 mmol/L [facility] Calcium [Mass/Vol] 10.7 mg/dL High 8.4 - 10. 4 mg/dL [facility] Chloride [Moles/Vol] 105 mmol/L 98 - 10 7 mmol/L [facility] CO2 [Moles/Vol] 16 mmol/L Low 22 - 30 mmol/L [facility] Creatinine [Mass/Vol] 2.42 mg/dL High 0.52 - 1.04 mg/dL [facility] GFR/1.73 sq M.predicted (S/P/Bld) [Vol rate/Area] 21.7 mL/min Low - PINF [facility] Comment on above: Calculation based on the Chronic Kidney Disease Epidemiology Collaboration (CKD-EPI) equation refit without adjustment for race Glucose [Mass/Vol] 139 mg/dL High 70 - 100 mg/dL [facility] Interpretation and review of laboratory results Abnormal [facility] Potassium [Moles/Vol] 4.5 mmol/L 3.5 - 5.1 mmol/L [facility] Sodium [Moles/Vol] 132 mmol/L Low 135 - 145 mmol/L [facility] Urea nitrogen [Mass/Vol] 60 mg/dL High 7 - 17 mg/dL [facility]Don [facility]-06-2024 [facility] Initi al Assessment Date: 03/06/2024 Patient Name: Eren Merchant : 1960 Patient Information Source of Information: Patient Cognition/Language: WFL - Within Functional Limits Permission given to speak with patient manufacturers service representative/caregiver as indicated: Yes Confirmation of Payer with patient/family: Yes Payer Name: Medical [employer] Medicare : No Confirmation of Primary Care [...] Prescription Coverage: Yes Pharmacy Used: [facility] [place] Medication Management: Independent Transportation/Shopping: Independent Transportation Mode: [...] and follow as needed. Lola Howe RN [facility] CBC W Auto Differential pane l (Bld)on 03-06-2024 Basophils (Bld) [#/Vol] 0 10*3/uL 0.0 - 0.2 10*3/uL [facility] Basophils/100 WBC (Bld) 0.3 % 0.0 - 2.0 % [facility] Eosinophils (Bld) [#/Vol] 0 10*3/uL 0.0 - 0.5 10*3/uL [facility] Eosinophils/100 WBC (Bld) 0.1 % 0.0 - 6.0 % [facility] Erythrocyte distribution width (RBC) [Ratio] 15.2 % High 11.5 - 15.0 % [facility] Hematocrit (Bld) [Volume fraction] 36.8 % 35.0 - 47.0 % [facility] Hemoglobin (Bld) [Mass/Vol] 12.2 g/dL 11.7 - 16.0 g/dL [facility] Immature granulocytes (Bld) [#/Vol] 0.3 10*3/uL High NINF - 0.1 10*3/uL [facility] Immature granulocytes/100 WBC (Bld) 2.5 % High 0.0 - 2.0 % [facility] Interpretation and review of laboratory results Abnormal [facility] Lymphocytes (Bld) [#/Vol] 1.4 10*3/uL 1.0 - 4.3 10*3/uL [facility] Lymphocytes/100 WBC (Bld) 12.1 % Low 15.0 - 45.0 % [facility] MCH (RBC) [Entitic mass] 25.8 pg Low 26.0 - 34.0 pg [facility] MCHC (RBC) [Mass/Vol] 33.2 % 30.5 - 36.0 % [facility] MCV (RBC) [Entitic vol] 77.8 fL 77.0 - 99.0 fL [facility] Monocytes (Bld) [#/Vol] 0.4 10*3/uL 0.0 - 0.9 10*3/uL [facility] Monocytes/100 WBC (Bld) 3.8 % Low 5.0 - 13.0 % [facility] Neutrophils (Bld) [#/Vol] 9.1 10*3/uL High 1.8 - 7.5 10*3/uL [facility] Neutrophils/100 WBC (Bld) 81.2 % 38.0 - 82.0 % [facility] Nucleated RBC/100 WBC (Bld) [Ratio] 0 % [facility] Platelet mean volume (Bld) [Entitic vol] 10.3 fL 9.0 - 12.7 fL [facility] Platelets (Bld) [#/Vol] 462 10*3/uL High 140 - 440 10*3/uL [facility] RBC (Bld) [#/Vol] 4.73 10*6/uL 3.80 - 5.20 10*6/uL [facility] WBC (Bld) [#/Vol] 11.2 10*3/uL High 3.6 - 10.7 10*3/uL [facility] CBC WITH AUTO DIFFERENTIALon 03-06-2024 Basophils (Bld) [#/Vol] 0.0 10*3/uL Normal 0.0-0.2 [facility] Comment on above: Performed By: #### L [id number] ####Manager Shell: LACY OROSCO ([id number])[address] Basophils/100 WBC (Bld) 0.3 % Normal 0.0-2.0 [facility] Comment on above: Performed By: #### L [id number] ####Manager Shell: LACY OROSCO ([id number])[facility])[address] [place] [address] Eosinophils (Bld) [#/Vol] 0.0 10*3/uL Normal 0.0-0.5 [facility] Comment on above: Performed By: #### L [id number] ####Manager Shell: LACY OROSCO ([phone])[facility])[address] [place] [address] Eosinophils/100 WBC (Bld) 0.1 % Normal 0.0-6.0 [facility] Comment on above: Performed By: #### L [id number] ####Manager Shell: LACY OROSCO ([id number])[facility])[address] [place] [address] Erythrocyte distribution width (RBC) [Ratio] 15.2 % High 11.5-15.0 [facility] Comment on above: Performed By: #### L [id number] ####Manager Shell: LACY OROSCO ([phone])[facility])[address] [place] [address] Hematocrit (Bld) [Volume fraction] 36.8 % Normal 35.0-47.0 [facility] Comment on above: Performed By: #### L [id number] ####Manager Shell: LACY OROSCO ([id number])[facility])[address] [place] [address] Hemoglobin (Bld) [Mass/Vol] 12.2 g/dL Normal 11.7-16.0 [facility] Comment on above: Performed By: #### L [id number] ####Manager Shell: LACY OROSCO ([phone])[facility])[address] [place] [address] IMMATURE GRANS % 2.5 % High 0.0-2.0 [facility] Comment on above: Performed By: #### L [id number] ####Manager Shell: LACY OROSCO ([phone])[facility])[address] [place] [address] IMMATURE GRANS ABSOLUTE 0.3 10*3/uL High <0.1 [facility] Comment on above: Performed By: #### L [id number] ####Manager Shell: LACY OROSCO ([phone])[facility])[address] [place] [address] Lymphocytes (Bld) [#/Vol] 1.4 10*3/uL Normal 1.0-4.3 [facility] Comment on above: Performed By: #### L [id number] ####Manager Shell: LACY OROSCO ([phone])[facility])[address] [place] [address] Lymphocytes/100 WBC (Bld) 12.1 % Low 15.0-45.0 [facility] Comment on above: Performed By: #### L [id number] ####Manager Shell: LACY OROSCO ([phone])[facility])[address] [place] [address] MCH (RBC) [Entitic mass] 25.8 pg Low 26.0-34.0 [facility] Comment on above: Performed By: #### L [id number] ####Manager Shell: LACY OROSCO ([id number])[facility])[address] [place] [address] MCHC 33.2 % Normal 30.5-36.0 [facility] Comment on above: Performed By: #### L [id number] ####Manager Shell: LACY OROSCO ([id number])[facility])[address] [place] [address] MCV (RBC) [Entitic vol] 77.8 fL Normal 77.0-99.0 [facility] Comment on above: Performed By: #### L [id number] ####Manager Shell: LACY OROSCO ([phone])[facility])[address] [place] [address] Monocytes (Bld) [#/Vol] 0.4 10*3/uL Normal 0.0-0.9 [facility] Comment on above: Performed By: #### L [id number] ####Manager Shell: LACY OROSCO ([phone])[facility])[address] [place] [address] Monocytes/100 WBC (Bld) 3.8 % Low 5.0-13.0 [facility] Comment on above: Performed By: #### L [id number] ####Manager Shell: LACY OROSOC ([phone])[facility])[address] [place] [address] NEUTROPHILS ABSOLUTE 9.1 10*3/uL High 1.8-7.5 [facility] Comment on above: Performed By: #### L [id number] ####Manager Shell: LACY OROSCO ([phone])[facility])[address] [place] [address] Neutrophils/100 WBC (Bld) 81.2 % Normal 38.0-82.0 [facility] Comment on above: Performed By: #### L [id number] ####Manager Shell: LACY OROSCO ([phone])[facility])[address] [place] [address] NRBC 0.0 /100 WBCs Normal 0.0-2.0 [facility] Comment on above: Performed By: #### L [id number] ####Manager Shell: LACY OROSCO ([phone])[facility] ([facility])[address] [place] [address] Platelet mean volume (Bld) [Entitic vol] 10.3 fL Normal 9.0-12.7 [facility] Comment on above: Performed By: #### L [id number] ####Manager Shell: LACY OROSCO ([phone])[facility])[address] [place] [address] Platelets (Bld) [#/Vol] 462 10*3/uL High 140-440 [facility] Comment on above: Performed By: #### L [id number] ####Manager Shell: LACY OROSCO ([phone])[facility])[address] [place] [address] RBC (Bld) [#/Vol] 4.73 10*6/uL Normal 3.80-5.20 [facility] Comment on above: Performed By: #### L [id number] ####Manager Shell: LACY OROSCO ([phone])[facility])[address] [place] [address] WBC (Bld) [#/Vol] 11.2 10*3/uL High 3.6-10.7 [facility] Comment on above: Performed By: #### L [id number] ####Manager Shell: LACY OROSCO ([phone])[facility])[address] [place] [address] IDNon 03-06-2024 IDN Problem: Pain - Adul [...] Cx Nom (U) No growth (<1,000 CFU/mL) [facility] MR Brain WO contraston 03-06 1. Negative unenhanced MR scan of the brain except for minimal T2 hyperintensities of left frontal lobe probably due to minimal microangiopathic change. Report Dictated on Electronically Signed By: Phong Sandoval MD Electronically Signed Date/Time: 03/06/2024 11:48 PM EDT [facility] Patient Name: EREN BUSTILLO : 1960 [facility]#: [id number] Exam Date/Time: 03/06/2024 18:46 Procedure: MR BRAIN [...] no mucosal thickening in the paranasal sinuses. [facility] Phong Sandoval MD - 03/06/2024 Patient Name: [...] Electronically Signed Date/Time: 03/06/2024 11:48 PM EDT [employer] MR Brain WO contrastOrdered By: Phong Sandoval on 03-06-2024 [employer] Work Phone: MRA Head vessels WO contrast on 03-06-2024 1. Negative MR angiogram of the intracranial vessels. Report Dictated on Electronically Signed By: Phong Sandoval MD Electronically Signed Date/Time: 03/06/2024 11:49 PM EDT [facility] [...] Signed Date/Time: 03/06/2024 11:49 PM EDT [facility] MRA Neck vessels WO contrast on 03-06-2024 1. Limited quality MR angiogram of the extracranial carotid and vertebral arteries shows no definite significant stenosis with moderate tortuosity upper ICA's with S-shaped curves. Report Dictated on Electronically Signed By: Phong Sandoval MD Electronically Signed Date/Time: 03/06/2024 11:52 PM EDT [facility] [...] no ulceration, and no evidence of dissection. [facility] Phong [...] Signed Date/Time: 03/06/2024 11:52 PM EDT [facility] No Panel Informationon 03-06 Radiology Study observation (narrative) [facility] Mario Angel MD PhD 03/06/2024 4:07 PM [facility] [address] [place] [address] ROUTINE EEG REPORT Patient Name: Eren Merchant : 1960 Date of Study: 03/06/2024 Duration Recorded: 24 Minutes EEG#: [id number] MEDICATION COORDINATOR: Cleo Cano. PROVIDER REQUESTING STUDY: Kayli Velasquez [...] recent episodes which prompted her transfer to [facility] for further workup. On 02/26/24, patient [...] office on 03/03/24. She walked up to director of strategic alliances desk, all of a sudden both arms [...] study with video was carried out at [facility]. Scalp electrodes were positioned in person by an cardiopulmonary technologist, following patient education, according to the 10-20 International system of electrode placement and maintained for integrity and quality of the recording. EEG data with video was recorded continuously and digitally stored. The cardiopulmonary technologist reviewed all automated detections and manual events and prepared the data for archiving and provider review. Referential and bi (more content not included)... [facility] There is no interpre tation needed for this exam. IMAGING Progress Noteon 03-06-2024 Progress Note Nutrition rescreen completed. Chart reviewed. Patient to be monitored and followed by the diet park maintenance technician. ALEE Agustin Normal [facility] [...] EEG. Plan discussed with Dr. Cruz. Normal [facility] Progress Note ------- Attestation signed by Karen [...] additional questions or concerns On-Call Finder --> [facility] Urology Page on-call resident(s) first Karen Bryan DO [facility] Urology UROLOGY PROGRESS NOTE PATIENT NAME: Eren [...] AM ED (more content not included)... Normal [employer] [facility] Heart TransthoracicOrdere d By: Priyanka Holt on 03-06-2024 Ao Root Index 1.81 cm/m2 [employer] Work Phone: Aortic Root 3.4 cm Curbside Phone: Aortic Sinus Valsalva 3.4 cm [employer] Work Phone: Aortic Sinus Valsalva Index 1.81 cm/m2 [facility] [employer] Work Phone: Ascending Aorta 3.4 cm [facility] [employer] Work Phone: Ascending Aorta Index 1.81 cm/m2 [employer] Work Phone: E/E' Lateral 5.43 [facility] [employer] Work Phone: E/E' Ratio (Averaged) 4.83 [employer] Work Phone: E/E' Septal 4.22 [facility] [employer] Work Phone: EF BP 60 % 55 - 100 % [facility] [employer] Work Phone: Est. RA Pressure 3 mmHg [facility] [employer] Work Phone: Fractional Shortening 2D 36 % 28 - 44 % [facility] [employer] Work Phone: Global Longitudinal Strain -17.6 % [facility] [employer] Work Phone: Global Longitudinal Strain -17.5 % [facility] [employer] Work Phone: Global Longitudinal Strain -21.6 % [facility] [employer] Work Phone: Global Longitudinal Strain -18.9 % [facility] [employer] Work Phone: Interpretation and review of laboratory results Abnormal [facility] [employer] Work Phone: IVC Diameter 1.6 cm [facility] [employer] Work Phone: IVSd 0.8 cm 0.6 - 0.9 cm [facility] [employer] Work Phone: LA Volume 2C 19 mL Abnormal 22 - 52 mL [facility] Work Phone: LA Volume 4C 22 mL 22 - 52 mL [facility] Work Phone: LA Volume A/L 23 mL [facility] [employer] Work Phone: LA Volume BP 21 mL Abnormal 22 - 52 mL [facility] [employer] Work Phone: LA Volume Index 2C 10 mL/m2 Abnormal 16 - 34 mL/m2 [facility] Work Phone: LA Volume Index 4C 12 mL/m2 Abnormal 16 - 34 mL/m2 [facility] Work Phone: LA Volume Index A/L 12 mL/m2 16 - 34 mL/m2 [facility] [employer] Work Phone: LA Volume Index BP 11 ml/m2 Abnormal 16 - 34 ml/m2 [facility] [employer] Work Phone: LV E' Lateral Velocity 7 cm/s [facility] Work Phone: LV E' Septal Velocity 9 cm/s [facility] Work Phone: LV Mass 2D 89.7 g 67 - 162 g [facility] [employer] Work Phone: LV Mass 2D Index 47.7 g/m2 43 - 95 g/m2 [facility] [employer] Work Phone: LV RWT Ratio 0.41 [facility] [employer] Work Phone: LVIDd 3.9 cm 3.9 - 5.3 cm [facility] [employer] Work Phone: LVIDd Index 2.07 cm/m2 [facility] [employer] Work Phone: LVIDs 2.5 cm [facility] [employer] Work Phone: LVIDs Index 1.33 cm/m2 [facility] [employer] Work Phone: LVOT Area 3.5 cm2 [facility] [employer] Work Phone: LVOT Cardiac Output 4.7 liter/mi nu te [facility] [employer] Work Phone: LVOT Diameter 2.1 cm [facility] [employer] Work Phone: LVOT Mean Gradient 1 mmHg [facility] [employer] Work Phone: LVOT Peak Gradient 3 mmHg [facility] [employer] Work Phone: LVOT Peak Velocity 0.9 m/s [facility] [employer] Work Phone: LVOT Stroke Volume Index 23.8 mL/m2 [facility] [employer] Work Phone: LVOT SV 44.7 ml [facility] [employer] Work Phone: LVOT VTI 12.9 cm [facility] Work Phone: LVPWd 0.8 cm 0.6 - 0.9 cm [facility] Work Phone: MV A Velocity 0.59 m/s [employer] Work Phone: MV E Velocity 0.38 m/s Curbside Phone: MV E Wave Deceleration Time 105.3 ms [facility] Work Phone: MV E/A 0.64 [facility] [employer] Phone: RA Area 4C 14.5 mL [facility] Work Phone: RA Area 4C 14.4 mL [employer] Phone: RV Basal Dimension 2.7 cm [facility] [employer] Phone: RV Free Wall Peak S' 17 cm/s [facility] [employer] Phone: RV Mid Dimension 2.5 cm [facility] [employer] Phone: RVSP 30 mmHg [facility] [employer] Phone: Sinotubular Junction 2.5 cm [facility] [employer] Work Phone: TAPSE 1 cm Abnormal 1.7 cm [facility] [employer] Phone: TR Max Velocity 2.59 m/s [facility] [employer] Phone: TR Peak Gradient 27 mmHg Cur[employer]ide Phone: [facility] [employer] Phone: US Heart Transthoracicon Left Ventricle: Left [...] Anion gap [Moles/Vol] 14 mmol/L High 3-13 [facility] Comment on above: Performed By: #### L [id number], [id number] ####Manager Shell: LACY OROSCO ([phone])[facility])[address] [place] [address] Calcium [Mass/Vol] 11.3 mg/dL High 8.4-10.4 [facility] Comment on above: Performed By: #### L [id number], [id number] ####Manager Shell: LACY OROSCO ([id number])[facility] ([facility])[address] [place] [address] [place] Chloride [Moles/Vol] 102 mmol/L Normal 98-107 [facility] Comment on above: Performed By: #### L [id number], [id number] ####Manager Shell: LACY OROSCO ([phone])[facility])[address] [place] [address] CO2 [Moles/Vol] 17 mmol/L Low 22-30 [facility] Comment on above: Performed By: #### L AB15, [id number] ####Manager Shell: LACY OROSCO ([phone])[facility] ([facility])[address] [place] [address] Creatinine [Mass/Vol] 2.67 mg/dL High 0.52-1.04 [facility] Comment on above: Performed By: #### L [id number], [id number] ####Manager Shell: LACY OROSCO ([phone])[facility])[address] [place] [address] [place] GLOMERULAR FILTRATION RATE ML/MIN/1.73 SQ M.PREDICTED 19.3 mL/min/1.73m*2 Low >60.0 [facility] Comment on above: Result Comment: Calc ulation based on the Chronic Kidney Disease Epidemiology Collaboration (CKD-EPI) equation refit without adjustment for race Performed By: #### L AB15, [id number] ####Manager Shell: LACY OROSCO ([id number])[facility])[address] [place] [address] Glucose [Mass/Vol] 120 mg/dL High 70-100 [facility] Comment on above: Performed By: #### L [id number], [id number] ####Manager Shell: LACY OROSCO ([phone])[facility])[address] [place] [address] Potassium [Moles/Vol] 4.2 mmol/L Normal 3.5-5.1 [facility] Comment on above: Performed By: #### L AB15, [id number] ####Manager Shell: LACY OROSCO ([phone])[facility])[address] [place] [address] [place] Sodium [Moles/Vol] 133 mmol/L Low 135-145 [facility] Comment on above: Performed By: #### L AB15, [id number] ####Manager Shell: LACY OROSCO ([id number])[facility])[address] [place] [address] [place] Urea nitrogen [Mass/Vol] 60 mg/dL High 7-17 [facility] Comment on above: Performed By: #### L AB15, [id number] ####Manager Shell: LACY OROSCO ([phone])[facility] ([address] Basic metabolic 1998 panelon 03-05-2024 Anion gap [Moles/Vol] 14 mmol/L High 3 - 13 mmol/L [facility] Calcium [Mass/Vol] 11.3 mg/dL High 8.4 - 10. 4 mg/dL [facility] Chloride [Moles/Vol] 102 mmol/L 98 - 10 7 mmol/L [facility] CO2 [Moles/Vol] 17 mmol/L Low 22 - 30 mmol/L [facility] Creatinine [Mass/Vol] 2.67 mg/dL High 0.52 - 1.04 mg/dL [facility] GFR/1.73 sq M.predicted (S/P/Bld) [Vol rate/Area] 19.3 mL/min Low - PINF [facility] Comment on above: Calculation based on the Chronic Kidney Disease Epidemiology Collaboration (CKD-EPI) equation refit without adjustment for race Glucose [Mass/Vol] 120 mg/dL High 70 - 100 mg/dL [facility] Interpretation and review of laboratory results Abnormal [facility] Potassium [Moles/Vol] 4.2 mmol/L 3.5 - 5.1 mmol/L [facility] Sodium [Moles/Vol] 133 mmol/L Low 135 - 145 mmol/L [facility] Urea nitrogen [Mass/Vol] 60 mg/dL High 7 - 17 mg/dL [facility] CBC W Auto Differential pane l (Bld)Ordered By: Jordan Middleton on 03-05-2024 Basophils (Bld) [#/Vol] 0.1 10*3/uL 0.0 - 0.2 10*3/uL [facility] Basophils/100 WBC (Bld) 0.4 % 0.0 - 2.0 % [facility] Eosinophils (Bld) [#/Vol] 0.1 10*3/uL 0.0 - 0.5 10*3/uL [facility] Eosinophils/100 WBC (Bld) 0.4 % 0.0 - 6.0 % [facility] Erythrocyte distribution width (RBC) [Ratio] 15.3 % High 11.5 - 15.0 % [facility] Hematocrit (Bld) [Volume fraction] 38.2 % 35.0 - 47.0 % [facility] Hemoglobin (Bld) [Mass/Vol] 12.3 g/dL 11.7 - 16.0 g/dL [facility] Immature granulocytes (Bld) [#/Vol] 0.2 10*3/uL High NINF - 0.1 10*3/uL [facility] Immature granulocytes/100 WBC (Bld) 1.7 % 0.0 - 2.0 % [facility] Interpretation and review of laboratory results Abnormal [facility] Lymphocytes (Bld) [#/Vol] 1.9 10*3/uL 1.0 - 4.3 10*3/uL [facility] Lymphocytes/100 WBC (Bld) 15.5 % 15.0 - 45.0 % [facility] MCH (RBC) [Entitic mass] 25.3 pg Low 26.0 - 34.0 pg [facility] MCHC (RBC) [Mass/Vol] 32.2 % 30.5 - 36.0 % [facility] MCV (RBC) [Entitic vol] 78.4 fL 77.0 - 99.0 fL [facility] Monocytes (Bld) [#/Vol] 1.3 10*3/uL High 0.0 - 0.9 10*3/uL [facility] Monocytes/100 WBC (Bld) 10.4 % 5.0 - 13.0 % [facility] Neutrophils (Bld) [#/Vol] 8.9 10*3/uL High 1.8 - 7.5 10*3/uL [facility] Neutrophils/100 WBC (Bld) 71.6 % 38.0 - 82.0 % [facility] Nucleated RBC/100 WBC (Bld) [Ratio] 0 % [facility] Platelet mean volume (Bld) [Entitic vol] 10.3 fL 9.0 - 12.7 fL [facility] Platelets (Bld) [#/Vol] 466 10*3/uL High 140 - 440 10*3/uL [facility] RBC (Bld) [#/Vol] 4.87 10*6/uL 3.80 - 5.20 10*6/uL [facility] WBC (Bld) [#/Vol] 12.4 10*3/uL High 3.6 - 10.7 10*3/uL [facility] CBC WITH AUTO DIFFERENTIALon 10-20-2024 Basophils (Bld) [#/Vol] 0.1 10*3/uL Normal 0.0-0.2 [facility] Comment on above: Performed By: #### L [id number] ####Manager Shell: LACY OROSCO ([phone])[facility])[address] [place] [address] Basophils/100 WBC (Bld) 0.4 % Normal 0.0-2.0 [facility] Comment on above: Performed By: #### L [id number] ####Manager Shell: LACY OROSCO ([phone])[facility])[address] [place] [address] Eosinophils (Bld) [#/Vol] 0.1 10*3/uL Normal 0.0-0.5 [facility] Comment on above: Performed By: #### L [id number] ####Manager Shell: LACY OROSCO ([phone])[facility])[address] [place] [address] Eosinophils/100 WBC (Bld) 0.4 % Normal 0.0-6.0 [facility] Comment on above: Performed By: #### L [id number] ####Manager Shell: LACY OROSCO ([id number])[facility])[address] [place] [address] Erythrocyte distribution width (RBC) [Ratio] 15.3 % High 11.5-15.0 [facility] Comment on above: Performed By: #### L [id number] ####Manager Shell: LACY OROSCO ([id number])[facility] ([facility])[address] [place] [address] Hematocrit (Bld) [Volume fraction] 38.2 % Normal 35.0-47.0 [facility] Comment on above: Performed By: #### L [id number] ####Manager Shell: LACY OROSCO ([phone])[facility])[address] [place] [address] Hemoglobin (Bld) [Mass/Vol] 12.3 g/dL Normal 11.7-16.0 [facility] Comment on above: Performed By: #### L [id number] ####Manager Shell: LACY OROSCO ([phone])[facility])[address] [place] [address] IMMATURE GRANS % 1.7 % Normal 0.0-2.0 [facility] Comment on above: Performed By: #### L [id number] ####Manager Shell: LACY OROSCO ([phone])[facility])[address] [place] [address] IMMATURE GRANS ABSOLUTE 0.2 10*3/uL High <0.1 [facility] Comment on above: Performed By: #### L [id number] ####Manager Shell: LACY OROSCO ([id number])[address] Lymphocytes (Bld) [#/Vol] 1.9 10*3/uL Normal 1.0-4.3 [facility] Comment on above: Performed By: #### L [id number] ####Manager Shell: LACY OROSCO ([phone])[address] Lymphocytes/100 WBC (Bld) 15.5 % Normal 15.0-45.0 [facility] Comment on above: Performed By: #### L [id number] ####Manager Shell: LACY OROSCO ([id number])[facility])[address] [place] [address] MCH (RBC) [Entitic mass] 25.3 pg Low 26.0-34.0 [facility] Comment on above: Performed By: #### L [id number] ####Manager Shell: LACY OROSCO ([id number])[address] MCHC 32.2 % Normal 30.5-36.0 [facility] Comment on above: Performed By: #### L [id number] ####Manager Shell: LACY OROSCO ([id number])[facility])[address] [place] [address] MCV (RBC) [Entitic vol] 78.4 fL Normal 77.0-99.0 [facility] Comment on above: Performed By: #### L [id number] ####Manager Shell: LACY OROSCO ([id number])[facility] ([facility])[address] [place] [address] [place] Monocytes (Bld) [#/Vol] 1.3 10*3/uL High 0.0-0.9 [facility] Comment on above: Performed By: #### L [id number] ####Manager Shell: LACY OROSCO ([id number])[facility] ([facility])[address] [place] [address] Monocytes/100 WBC (Bld) 10.4 % Normal 5.0-13.0 [facility] Comment on above: Performed By: #### L [id number] ####Manager Shell: LACY OROSCO ([id number])[facility] ([facility])[address] [place] [address] NEUTROPHILS ABSOLUTE 8.9 10*3/uL High 1.8-7.5 [facility] Comment on above: Performed By: #### L [id number] ####Manager Shell: LACY OROSCO ([id number])[facility])[address] [place] [address] Neutrophils/100 WBC (Bld) 71.6 % Normal 38.0-82.0 [facility] Comment on above: Performed By: #### L [id number] ####Manager Shell: LACY OROSCO ([id number])[facility] ([facility])[address] [place] [address] NRBC 0.0 /100 WBCs Normal 0.0-2.0 [facility] Comment on above: Performed By: #### L [id number] ####Manager Shell: LACY OROSCO ([id number])[facility])[address] [place] [address] Platelet mean volume (Bld) [Entitic vol] 10.3 fL Normal 9.0-12.7 [facility] Comment on above: Performed By: #### L [id number] ####Manager Shell: LACY OROSCO ([phone])[facility] ([facility])[address] [place] [address] Platelets (Bld) [#/Vol] 466 10*3/uL High 140-440 [facility] Comment on above: Performed By: #### L [id number] ####Manager Shell: LACY OROSCO ([id number])[facility] ([facility])[address] [place] [address] RBC (Bld) [#/Vol] 4.87 10*6/uL Normal 3.80-5.20 [facility] Comment on above: Performed By: #### L [id number] ####Manager Shell: LACY OROSCO ([id number])[facility] ([facility])[address] [place] [address] WBC (Bld) [#/Vol] 12.4 10*3/uL High 3.6-10.7 [facility] Comment on above: Performed By: #### L [id number] ####Manager Shell: LACY OROSCO ([id number])[facility])[address] [place] [address] CT ABDOMEN PELVIS WO IV CONT [facility] 03-05-2024 CT ABDOMEN PELVIS WO IV CONTRAST [...] Electronically Signed Date/Time: 03/05/2024 9:35 AM EDT [facility] CT Abdomen WO contraston Bilateral hydronephr osis. Obstructing calculus in the left distal ureter. The right distal ureter is difficult to follow into the bladder. Report Dictated on Electronically Signed By: Guillermo Calvin MD Electronically Signed Date/Time: 03/05/2024 9:35 AM EDT [facility] Patient Name: EREN BUSTILLO : 1960 Exam Date/Time: 03/05/2024 09:11 Procedure: [...] level. There is a transitional S1 level. [facility] Guillermo Calvin MD - 03/05/2024 [facility] 1960 [id number] Exam Date/Time: 03/05/2024 09:11 Procedure: CT ABDOMEN [...] Electronically Signed Date/Time: 03/05/2024 9:35 AM EDT Code[facility] [employer] [facility] Study observation (narrative) [facility] CT Abdomen WO contrastOrdere d By: Guillermo Calvin on 03-05-2024 [employer] Work Phone: Consulton 03-05-2024 Consult ------- Attestation [...] mg, 650 mg, Rectal, q6h PRN, Maurilio Drenic, MD amitriptyline (Elavil) tablet 50 mg, 50 [...] ?F) Te (more content not included)... Normal [facility] Consult General Neurology Co nsult Patient: Eren Merchant Date of : 1960 Acct: [id number] PCP: Priyanka Smith Date of Admission: 03/04/2024 [...] recent episodes which prompted her transfer to [facility] for further workup. On 02/26/24, patient [...] office on 03/03/24. 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 Head trauma (no); 2. EDUCATIONAL DIRECTOR infections (no); 3. Family history of seizures (yes, brother); 4. Developmental delay (no); 5. Febrile seizures (no); 6. EDUCATIONAL DIRECTOR tumors (no); 7. EDUCATIONAL DIRECTOR vascular disease (no); 8. Significant medical history: CKD, ILD, current complicated UTI; 9. and early development: normal and early development Patient presented to [facility] and was found to be tachycardic. 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 As far as neurologic history: Patient [...] unsure of times or dose Yes Historical ProviderMD amitriptyline (Elavil) 75 MG tablet Take 75 [...] Take 5 mg by mouth daily. Historical Provider Calcium Carbonate-Vitamin D 500-5 MG-MCG tablet Take 5 mg by mouth in the morning and 5 mg in the evening. 03/04/24 Historical Provider, Current Hospital Medications: Current Facility-Administered Medications: acetaminophen (Tylenol) tablet 650 mg, 650 mg, Oral, q6h PRN OR acetaminophen (Tylenol) suppository 650 mg, 650 mg, Rectal, q6h PRN, Maurilio Groves MD amitrip (more content not included)... [facility] Consult Department of Assistant Manager [employer] al Medicine Gastroenterology Attending Consult Note Reason [...] and states has dysmotility. She was on detention reglan and ended up having drug induced [...] interstitial cystitis 03/03/2024 ILD (interstitial lung disease) ([facility]) 03/25/2020 Lung nodules 02/12/2020 NSIP (nonspecific interstitial pneumonitis) ([facility]) 10/30/2022 Stage 3a chronic kidney disease ([facility]) 01/12/2023 Post-menopausal bleeding 11/25/2018 Acquired hypothyroidism 03/04/2024 Resolved Ambulatory Problems Diagnosis Date Noted No Resolved Ambulatory Problems Past Medical History: Diagnosis Date Arthritis Cancer (CMS/HCC) ([facility]) Disease of thyroid gland Past [...] Resource Strain: High Risk (03/26/2020) Received from [facility] Overall Financial Resource Strain (CARDIA) Difficulty of Paying Living Expenses: Very hard Food Insecurity: No Food Insecurity (03/26/2020) Received from [facility] Hunger Vital Sign Worried About Running Out of Food in the Last Year: Never true Ran Out of Food in the Last Year: Never true Transportation Needs: No Transportation Needs (03/26/2020) Received from [facility] PRAPARE - Transportation Lack of Transportation (Medical): No Lack of Transportation (Non-Medical): No Physical Activity: Inactive (06/22/2023) Received from [facility] Exercise Vital Sign Days of Exercise [...] - challengeon 03-05-2024 TSH Qn 3.641 m[IU]/L Press Play No Panel InformationOrdered By: Fatemeh Watkins on 03-05-2024 P [place] -11 degrees Curbside Phone: LA Interval 151 ms Curbside Phone: QRS [place] -9 degrees Curbside Phone: QRSD Interval 86 ms Curbside Phone: QT Interval 303 ms Curbside Phone: QTC Interval 403 ms Curbside Phone: T Wave [place] 42 degrees Curbside Phone: Curbside Phone: No Panel Informationon 03-05 Sinus tachycardia Low voltage, precordial leads Borderline T abnormalities, anterior leads Electronically Signed On 03-05-2024 17:08:28 EDT by Fatemeh Watkins CV Fatemeh Hager MD - 03/05/2024 IMPRESSION: Sinus tachycardia Low voltage, precordial leads Borderline T abnormalities, anterior leads Electronically Signed On 03-05-2024 17:08:28 EDT by Fatemeh Watkins [facility] Nursing Noteon 03-05-2024 Nursing Note [...] in alone with cards for Interstem and battery charger tester. Patient said they could be brought in on Wednesday. Normal [facility] Nursing Note Patient had orthosta tic vitals taken, blood pressure standing was 83/55. Rapid notified, told to reach out to doctor. Doctor notified and no further orders placed. Waited on transportation but told by nursing track repair supervisor patient okay to take over in [...] with bilateral hydronephrosis. She was sent from [facility] for possible ureteral tumor. Repeat image [...] masses or lesions. Left Then a 0.035 [place] wire was advanced to the level of the kidney. A 6 fr x 24cmJJ stent was advanced over the wire through the cystoscope under fluoroscopic visualization. Once in position the wire was removed. A good curl was noted in the kidney and the bladder. Right Then a 0.035 [place] wire was advanced to the level of [...] on above: Performed By: #### L [id number], [id number] ####Manager Shell: LACY OROSCO ([phone])[facility] ([facility])[address] [place] [address] TSH Qnon 03-05-2024 Interpretation and review of laboratory results Normal [facility] URINE CULTUREon 03-05-2024 Bacteria identified Cx Nom (U) URINE CULTURE Reference No growth (<1,000 CFU/mL) [ S = SUSCEPTIBLE R = RESISTANT I = INTERMEDIATE S-DD = Susceptible-dose dependent NS = Non-susceptible NO = No Interpretation ] Normal [facility] Comment on above: Performed By: #### L [id number] ####Manager Shell: LACY OROSCO ([phone])[facility] ([facility])[address] [place] [address] Vital signsOrdered By: Fatemeh Watkins on 03-05-2024 Heart rate 106 /min bpm [facility] Work Phone: CBC W Auto Differential pane l (Bld)Ordered By: Ching Azar on 03-04-2024 Basophils (Bld) [#/Vol] 0.1 10*3/uL 0.0 - 0.2 10*3/uL [facility] Basophils/100 WBC (Bld) 0.3 % 0.0 - 2.0 % [facility] Eosinophils (Bld) [#/Vol] 0.1 10*3/uL 0.0 - 0.5 10*3/uL [facility] Eosinophils/100 WBC (Bld) 0.3 % 0.0 - 6.0 % [facility] Erythrocyte distribution width (RBC) [Ratio] 15.2 % High 11.5 - 15.0 % [facility] Hematocrit (Bld) [Volume fraction] 37.2 % 35.0 - 47.0 % [facility] Hemoglobin (Bld) [Mass/Vol] 12 g/dL 11.7 - 16.0 g/dL [facility] Immature granulocytes (Bld) [#/Vol] 0.2 10*3/uL High NINF - 0.1 10*3/uL [facility] Immature granulocytes/100 WBC (Bld) 1.2 % 0.0 - 2.0 % [facility] Interpretation and review of laboratory results Abnormal [facility] Lymphocytes (Bld) [#/Vol] 1.9 10*3/uL 1.0 - 4.3 10*3/uL [facility] Lymphocytes/100 WBC (Bld) 12.3 % Low 15.0 - 45.0 % [facility] MCH (RBC) [Entitic mass] 25.8 pg Low 26.0 - 34.0 pg [facility] MCHC (RBC) [Mass/Vol] 32.3 % 30.5 - 36.0 % [facility] MCV (RBC) [Entitic vol] 79.8 fL 77.0 - 99.0 fL [facility] Monocytes (Bld) [#/Vol] 1.7 10*3/uL High 0.0 - 0.9 10*3/uL [facility] Monocytes/100 WBC (Bld) 11.2 % 5.0 - 13.0 % [facility] Neutrophils (Bld) [#/Vol] 11.4 10*3/uL High 1.8 - 7.5 10*3/uL [facility] Neutrophils/100 WBC (Bld) 74.7 % 38.0 - 82.0 % [facility] Nucleated RBC/100 WBC (Bld) [Ratio] 0 % [facility] Platelet mean volume (Bld) [Entitic vol] 10.3 fL 9.0 - 12.7 fL [facility] Platelets (Bld) [#/Vol] 421 10*3/uL 140 - 440 10*3/uL [facility] RBC (Bld) [#/Vol] 4.66 10*6/uL 3.80 - 5.20 10*6/uL [facility] WBC (Bld) [#/Vol] 15.3 10*3/uL High 3.6 - 10.7 10*3/uL [facility] CBC WITH AUTO DIFFERENTIALon 03-04-2024 Basophils (Bld) [#/Vol] 0.1 10*3/uL Normal 0.0-0.2 [facility] Comment on above: Performed By: #### L [id number] ####Manager Shell: LACY OROSCO ([phone])[facility] ([facility])[address] [place] [address] Basophils/100 WBC (Bld) 0.3 % Normal 0.0-2.0 [facility] Comment on above: Performed By: #### L [id number] ####Manager Shell: LACY OROSCO ([phone])[facility])[address] [place] [address] Eosinophils (Bld) [#/Vol] 0.1 10*3/uL Normal 0.0-0.5 [facility] Comment on above: Performed By: #### L [id number] ####Manager Shell: LACY OROSCO ([id number])[facility] ([facility])[address] [place] [address] Eosinophils/100 WBC (Bld) 0.3 % Normal 0.0-6.0 [facility] Comment on above: Performed By: #### L [id number] ####Manager Shell: LACY OROSCO ([phone])[facility])[address] [place] [address] Erythrocyte distribution width (RBC) [Ratio] 15.2 % High 11.5-15.0 [facility] Comment on above: Performed By: #### L [id number] ####Manager Shell: LACY OROSCO ([phone])[facility])[address] [place] [address] Hematocrit (Bld) [Volume fraction] 37.2 % Normal 35.0-47.0 [facility] Comment on above: Performed By: #### L [id number] ####Manager Shell: LACY OROSCO ([phone])[facility])[address] [place] [address] Hemoglobin (Bld) [Mass/Vol] 12.0 g/dL Normal 11.7-16.0 [facility] Comment on above: Performed By: #### L [id number] ####Manager Shell: LACY OROSCO ([phone])[facility])[address] [place] [address] IMMATURE GRANS % 1.2 % Normal 0.0-2.0 [facility] Comment on above: Performed By: #### L [id number] ####Manager Shell: LACY OROSCO ([phone])[facility])[address] [place] [address] IMMATURE GRANS ABSOLUTE 0.2 10*3/uL High <0.1 [facility] Comment on above: Performed By: #### L [id number] ####Manager Shell: LACY OROSCO ([phone])[address] Lymphocytes (Bld) [#/Vol] 1.9 10*3/uL Normal 1.0-4.3 [facility] Comment on above: Performed By: #### L [id number] ####Manager Shell: LACY OROSCO ([phone])[address] Lymphocytes/100 WBC (Bld) 12.3 % Low 15.0-45.0 [facility] Comment on above: Performed By: #### L [id number] ####Manager Shell: LACY OROSCO ([id number])[address] MCH (RBC) [Entitic mass] 25.8 pg Low 26.0-34.0 [facility] Comment on above: Performed By: #### L [id number] ####Manager Shell: LACY OROSCO ([phone])[address] MCHC 32.3 % Normal 30.5-36.0 [facility] Comment on above: Performed By: #### L [id number] ####Manager Shell: LACY [id number])[facility] ([facility])[address] [place] [address] MCV (RBC) [Entitic vol] 79.8 fL Normal 77.0-99.0 [facility] Comment on above: Performed By: #### L [id number] ####Manager Shell: LACY OROSCO ([id number])[facility] ([facility])[address] [place] [address] Monocytes (Bld) [#/Vol] 1.7 10*3/uL High 0.0-0.9 [facility] Comment on above: Performed By: #### L [id number] ####Manager Shell: LACY OROSCO ([phone])[facility])[address] [place] [address] Monocytes/100 WBC (Bld) 11.2 % Normal 5.0-13.0 [facility] Comment on above: Performed By: #### L [id number] ####Manager Shell: LACY OROSCO ([phone])[facility] ([facility])[address] [place] [address] NEUTROPHILS ABSOLUTE 11.4 10*3/uL High 1.8-7.5 [facility] Comment on above: Performed By: #### L [id number] ####Manager Shell: LACY OROSCO ([phone])[facility])[address] [place] [address] Neutrophils/100 WBC (Bld) 74.7 % Normal 38.0-82.0 [facility] Comment on above: Performed By: #### L [id number] ####Manager Shell: LACY OROSCO ([phone])[facility] ([facility])[address] [place] [address] NRBC 0.0 /100 WBCs Normal 0.0-2.0 [facility] Comment on above: Performed By: #### L [id number] ####Manager Shell: LACY OROSCO ([phone])[facility] ([facility])[address] [place] [address] Platelet mean volume (Bld) [Entitic vol] 10.3 fL Normal 9.0-12.7 [facility] Comment on above: Performed By: #### L [id number] ####Manager Shell: LACY OROSCO ([phone])[facility] ([facility])[address] [place] [address] Platelets (Bld) [#/Vol] 421 10*3/uL Normal 140-440 [facility] Comment on above: Performed By: #### L [id number] ####Manager Shell: LACY OROSCO ([phone])[facility] ([facility])[address] [place] [address] RBC (Bld) [#/Vol] 4.66 10*6/uL Normal 3.80-5.20 [facility] Comment on above: Performed By: #### L [id number] ####Manager Shell: LACY OROSCO ([id number])[facility] ([facility])[address] [place] [address] WBC (Bld) [#/Vol] 15.3 10*3/uL High 3.6-10.7 [facility] Comment on above: Performed By: #### L [id number] ####Manager Shell: LACY OROSCO ([phone])[facility])[address] [place] [address] COMPREHENSIVE METABOLIC PANE Ghanshyam 03-04-2024 Albumin [Mass/Vol] 4.0 g/dL Normal 3.5-5.0 [facility] Comment on above: Performed By: #### L [id number] ####Manager Shell: LACY OROSCO ([phone])[facility] ([facility])[address] [place] [address] ALP [Catalytic activity/Vol] 96 U/L Normal 38-126 [facility] Comment on above: Performed By: #### L [id number] ####Manager Shell: LACY OROSCO ([phone])[facility] ([facility])[address] [place] [address] ALT [Catalytic activity/Vol] 17 U/L Normal 0-34 [facility] Comment on above: Performed By: #### L [id number] ####Manager Shell: LACY OROSCO ([phone])[facility] ([facility])[address] [place] [address] Anion gap [Moles/Vol] 9 mmol/L Normal 3-13 [facility] Comment on above: Performed By: #### L [id number] ####Manager Shell: LACY OROSCO ([phone])[facility] ([facility])[address] [place] [address] AST [Catalytic activity/Vol] 27 U/L Normal 15-46 [facility] Comment on above: Performed By: #### L [id number] ####Manager Shell: LACY OROSCO ([phone])[facility] ([facility])[address] [place] [address] Bilirubin [Mass/Vol] 0.5 mg/dL Normal 0.2-1.3 [facility] Comment on above: Performed By: #### L [id number] ####Manager Shell: LACY OROSCO ([id number])[facility] ([facility])[address] [place] [address] Calcium [Mass/Vol] 10.5 mg/dL High 8.4-10.4 [facility] Comment on above: Performed By: #### L [id number] ####Manager Shell: LACY OROSCO ([id number])[facility] ([facility])[address] [place] [address] [place] Chloride [Moles/Vol] 104 mmol/L Normal 98-107 [facility] Comment on above: Performed By: #### L [id number] ####Manager Shell: LACY OROSCO ([phone])[facility] ([facility])[address] [place] [address] [place] CO2 [Moles/Vol] 18 mmol/L Low 22-30 [facility] Comment on above: Performed By: #### L [id number] ####Manager Shell: LACY OROSCO ([phone])[facility] ([facility])[address] [place] [address] [place] Creatinine [Mass/Vol] 2.46 mg/dL High 0.52-1.04 [facility] Comment on above: Performed By: #### L [id number] ####Manager Shell: LACY OROSCO ([phone])[facility])[address] [place] [address] [place] GLOMERULAR FILTRATION RATE ML/MIN/1.73 SQ M.PREDICTED 21.3 mL/min/1.73m*2 Low >60.0 [facility] Comment on above: Result Comment: Calc ulation based on the Chronic Kidney Disease Epidemiology Collaboration (CKD-EPI) equation refit without adjustment for race Performed By: #### L [id number] ####Manager Shell: LACY OROSCO ([phone])[facility] ([facility])[address] [place] [address] Glucose [Mass/Vol] 111 mg/dL High 70-100 [facility] Comment on above: Performed By: #### L [id number] ####Manager Shell: LACY OROSCO ([phone])[facility] ([facility])[address] [place] [address] [place] Potassium [Moles/Vol] 4.1 mmol/L Normal 3.5-5.1 [facility] Comment on above: Performed By: #### L [id number] ####Manager Shell: LACY OROSCO ([id number])[facility] ([facility])[address] [place] [address] Protein [Mass/Vol] 7.7 g/dL Normal 6.3-8.2 [facility] Comment on above: Performed By: #### L [id number] ####Manager Shell: LACY OROSCO ([phone])[facility] ([facility])[address] [place] [address] [place] Sodium [Moles/Vol] 131 mmol/L Low 135-145 [facility] Comment on above: Performed By: #### L [id number] ####Manager Shell: LACY OROSCO ([phone])[facility] ([facility])[address] [place] [address] [place] Urea nitrogen [Mass/Vol] 58 mg/dL High 7-17 [facility] Comment on above: Performed By: #### L [id number] ####Manager Shell: LACY OROSCO ([id number])[facility] ([address] Comprehensive metabolic 1998 panelon 03-04-2024 Albumin [Mass/Vol] 4 g/dL 3.5 - 5.0 g/dL [facility] ALP [Catalytic activity/Vol] 96 U/L 38 - 126 U/L [facility] ALT [Catalytic activity/Vol] 17 U/L 0 - 34 U/L [facility] Anion gap [Moles/Vol] 9 mmol/L 3 - 13 mmol/L [facility] AST [Catalytic activity/Vol] 27 U/L 15 - 46 U/L [facility] Bilirubin [Mass/Vol] 0.5 mg/dL 0.2 - 1 .3 mg/dL [facility] Calcium [Mass/Vol] 10.5 mg/dL High 8.4 - 10. 4 mg/dL [facility] Chloride [Moles/Vol] 104 mmol/L 98 - 10 7 mmol/L [facility] CO2 [Moles/Vol] 18 mmol/L Low 22 - 30 mmol/L [facility] Creatinine [Mass/Vol] 2.46 mg/dL High 0.52 - 1.04 mg/dL [facility] GFR/1.73 sq M.predicted (S/P/Bld) [Vol rate/Area] 21.3 mL/min Low - PINF [facility] Comment on above: Calculation based on the Chronic Kidney Disease Epidemiology Collaboration (CKD-EPI) equation refit without adjustment for race Glucose [Mass/Vol] 111 mg/dL High 70 - 100 mg/dL [facility] Interpretation and review of laboratory results Abnormal [facility] Potassium [Moles/Vol] 4.1 mmol/L 3.5 - 5.1 mmol/L [facility] Protein [Mass/Vol] 7.7 g/dL 6.3 - 8.2 g/dL [facility] Sodium [Moles/Vol] 131 mmol/L Low 135 - 145 mmol/L [facility] Urea nitrogen [Mass/Vol] 58 mg/dL High 7 - 17 mg/dL [facility] US Kidneyon 10-19-2024 1. Mild bilateral hydronephrosis. Report Dictated on Electronically Signed By: Maxwell Levi MD Electronically Signed Date/Time: 03/04/2024 11:10 PM EDT [facility] [...] empty and not adequately visualized or evaluated. [facility] Maxwell Levi MD - 03/04/2024 Patient Name: [...] Electronically Signed Date/Time: 03/04/2024 11:10 PM EDT [facility] Radiology Study observation (narrative) [facility] US KidneyOrdered By: Maxwell Levi on 03-04-2024 [facility] Work Phone: US RENAL COMPLETEon 03-04-20 24 [...] Signed Date/Time: 03/04/2024 11:10 PM EDT Normal [facility] XR Chest PA and Lateralon IMPRESSION: Linear atelectatic changes at the left lung base. Fermenter Operator: JUAN Transcribe Date/Time: Mar 03 2024 12:46P Dictated by : JIMENA CHI MD This examination was interpreted and the report reviewed and electronically signed by: JIMENA CHI MD on Mar 03 2024 12:47PM [facility] DIVISION OF RADIOLOGY * * *Final [...] the thoracic spine. DIVISION OF RADIOLOGY Provider, [facility] - 03/03/2024 * * *Final [...] atelectatic changes at the left lung base. Fermenter Operator: PSCB Transcribe Date/Time: Mar 03 2024 12:46P Dictated by : JIMENA CHI MD This examination was interpreted and the report reviewed and electronically signed by: JIMENA CHI MD on Mar 03 2024 12:47PM EST [facility] Radiology [facility]narrative[facility] and LateralOrder ed By: [facility] Provider on 03-03-2024 [facility] UA DIP, URINE (POC)on 2023 BILIRUBIN UA (POCT) Negative Negative [facility] CLARITY UA (POCT) Clear [facility] COLOR UA (POCT) Yellow [facility] GLUCOSE UA (POCT) 100 mg/dL Abnormal Negative [facility] Hemoglobin Ql (U) Large Abnormal Negative [facility] Interpretation and review of laboratory results Abnormal [facility] KETONE UA (POCT) Negative Negative mg/dL [facility] LEUKOCYTES UA (POCT) Small Abnormal Negative [facility] NITRITE UA (POCT) Negative Negative [facility] PH UA (POCT) 6.0 4.5 - 8.0 [facility] Protein Ql (U) 100 mg/dL Abnormal Negative [facility] SPECIFIC GRAVITY UA (POCT) 1.020 1.005 - 1.030 [facility] UROBILINOGEN UA (POCT) 0.2 Sallie l E.U./dL [facility] Location:[address] POINT OF CARE [facility] ANES POSTPROC EVALon 024 ANES POSTPROC EVAL HNO ID: [id number] Author: JAYRO DAVILA MD Service: Anesthesiology Author Type: Physician Type: Anesthesia Postprocedure Evaluation Filed: 11/22/2023 10:06 Note Text: POST ANESTHESIA EVALUATION NOTE : 1960 Procedure Summary Date: 11/22/23 Room / Location: PA OR [address] [place] [address] OR Anesthesia Start: 801 Anesthesia Stop: Procedure: EXTRACORPOREAL SHOCKWAVE LITHOTRIPSY UNILATERAL (Right: Renal) Diagnosis: Renal calculus, right (Renal calculus, right [N20.0]) Surgeons: Mathew Yang Jr., MD Responsible Provider: Jayro Davila MD Anesthesia Type: general ASA Status: 3 Anesthesia Type: No value filed. Last Vitals Vitals Value Taken Time BP 112/68 11/22/23 0930 Temp 36.2 ?C (97.2 ?F) 11/22/23 0928 HR SpO2 64 11/22/23 0930 Resp 16 11/22/23 0930 SpO2 97 % 11/22/23 0930 Post Anesthesia Patient Status Anticipated Disposition: phase [...] November 22, 2023 TIME: 10:05 AM CSN: [id number] [facility] ANES PRE-OPon 11-22-2023 ANES PRE-OP HNO ID: [id number] Author: JAYRO DAVILA MD Service: Anesthesiology Author Type: Physician Type: Anesthesia Preprocedure Evaluation Filed: 11/22/2023 09:14 Note Text: ANESTHESIOLOGY DAY OF SURGERY NOTE : 1960 Procedure Information Date/Time: 11/22/23 0800 Procedure: EXTRACORPOREAL SHOCKWAVE LITHOTRIPSY UNILATERAL (Right: Renal) Location: PA OR / PA OR Surgeons: Mathew Yang Jr., MD Estimated [...] (HCC) PULMONARY (+) NSIP (nonspecific interstitial pneumonitis) ([facility]) I - PHYSICAL EVALUATION AIRWAY [...] November 22, 2023 TIME: 7:46 AM CSN: [id number] [facility] 11-22-2023 [facility] Telephone (PAPRAD) SHONDAEREN GRAJEDA ([id number]) 1960 F Date Time Provider Department 11/22/23 MATHEW YANG JR During your visit today, we recorded the following information about you: Mathew Yang Jr., MD 11/22/2023 8:45 AM Signed [facility] or 11/22/23 Fu with wa 4 weeks Kukeysha prior ordered Dee Long 11/22/2023 10:29 AM Signed Called and left vox Patient is scheduled December 21, 2023 at 2pm, owensidalia bolnad prior Thank you Abdulkadir Elder MA 11/25/2023 [...] Diagnosis:Kidney stone [N20.0] Order(s):XR ABDOMEN 1V SUPINE [[id number]] Order #: [id number] FUTURE XR ABDOMEN 1V SUPINE [[id number]] Order #: [id number] FUTURE Prescriptions as of 11/25/2023 - nitrofurantoin [...] Smear of Vagina and Vagin* 02/06/2010 Dyspareunia [[id number]] 05/03/2006 02/06/2010 Fx Sacrum/Coccyx-Closed [S32.10XA, S32.2XXA] 05/31/2007 [...] Encounter Status:Closed by MATHEW YANG on 11/22/23 [facility] HISTORY PHYSICALon HISTORY PHYSICAL HNO ID: [id number] Author: MATHEW YANG JR, MD Service: Urology [...] November 22, 2023 TIME: 7:53 AM PAGER: [phone] [facility] OPERATIVE NOon 11-22-2023 OPERATIVE NO HNO ID: [id number] Author: MATHEW YANG JR, MD Service: Urology [...] Yang Jr, MD OPERATIVE/PROCEDURE REPORT LOG ID: [id number] SURGERY/PROCEDURE DATE: 11/22/2023 INCISION/PROCEDURE START TIME: 8:13 AM INCISION CLOSE/PROCEDURE END TIME: 8:49 AM SURGEON(S)/PROCEDURALIST(S) AND CANNING MACHINE OPERATOR(S): Surgeon(s) and Role: * Mathew Yang Jr., MD - Primary * Denver Callaway MD - Resident - Assisting No Additional Staff ANESTHESIA: General Procedures Right ESWL OPERATIVE/PROCEDURE REPORT LOG ID: [id number] SURGERY/PROCEDURE DATE: 11/22/2023 INCISION/PROCEDURE START TIME: 8:13 AM INCISION CLOSE/PROCEDURE END TIME: 8:49 AM SURGEON(S)/PROCEDURALIST(S) AND CANNING MACHINE OPERATOR(S): Surgeon(s) and Role: * Mathew Yang Jr., [...] SIGNATURE: Denver Callaway MD PATIENT NAME: Eren Herbertiver DATE: November 22, 2023 TIME: 9:00 AM PAGER/CONTACT #: [phone] SPECIMENS: COMPLETED BY: Denver Callaway MD PATIENT NAME: Eren Herrera Shonda DATE: November 22, 2023 TIME: 8:59 AM [...] spine, concerning for left-sided distal ureter calculus. Fermenter Operator: PSCB Transcribe Date/Time: Nov 22 2023 8:25A Dictated by : GUILLERMO DEE MD This examination was interpreted and the report reviewed and electronically signed by: GUILLERMO DEE MD on Nov 22 2023 8:35AM EST [id number] Normal [facility] UA DIP, URINE (POC)on 2023 BILIRUBIN UA (POCT) Negative Negative [facility] CLARITY UA (POCT) [facility] COLOR UA (POCT) Dark yellow [facility] GLUCOSE UA (POCT) Negative Negative mg/dL [facility] Hemoglobin Ql (U) Large Abnormal Negative [facility] Interpretation and review of laboratory results Abnormal [facility] KETONE UA (POCT) Negative Negative mg/dL [facility] LEUKOCYTES UA (POCT) Moderate Abnormal Negative [facility] NITRITE UA (POCT) Negative Negative [facility] PH UA (POCT) 5.5 4.5 - 8.0 [facility] Protein Ql (U) >=300 Abnormal Negative mg/dL [facility] SPECIFIC GRAVITY UA (POCT) 1.020 1.005 - 1.030 [facility] UROBILINOGEN UA (POCT) 0.2 Sallie l E.U./dL [facility] Location:[facility], [address] [place] [address], [id number] [facility] POINT OF CARE [facility] UA DIP, URINE (POC)on 2023 BILIRUBIN UA (POCT) Negative Negative [facility] CLARITY UA (POCT) Clear [facility] COLOR UA (POCT) Yellow [facility] GLUCOSE UA (POCT) Negative Negative mg/dL [facility] Hemoglobin Ql (U) Moderate Abnormal Negative [facility] KETONE UA (POCT) Negative Negative mg/dL [facility] LEUKOCYTES UA (POCT) Large Abnormal Negative [facility] NITRITE UA (POCT) Negative Negative [facility] PH UA (POCT) 6.0 4.5 - 8.0 [facility] Protein Ql (U) 100 mg/dL Abnormal Negative mg/dL [facility] SPECIFIC GRAVITY UA (POCT) 1.020 1.005 - 1.030 [facility] UROBILINOGEN UA (POCT) 0.2 E.U./dL S[place]ie l E.U./dL [facility] DBT Breast - bilateral scree ningon 08-18-2023 [facility] UA DIP, URINE (POC)on 2022 BILIRUBIN UA (POCT) Negative Negative [facility] CLARITY UA (POCT) Clear [facility] COLOR UA (POCT) Yellow [facility] GLUCOSE UA (POCT) Negative Negative mg/dL [facility] Hemoglobin Ql (U) Small Abnormal Negative [facility] KETONE UA (POCT) Negative Negative mg/dL [facility] LEUKOCYTES UA (POCT) Small Abnormal Negative [facility] NITRITE [facility]A (POCT) Negative Negative [facility] PH UA (POCT) 7.0 4.5 - 8.0 [facility] Protein Ql (U) 100 mg/dL Abnormal Negative mg/dL [facility] SPECIFIC GRAVITY UA (POCT) 1.025 1.005 - 1.030 [facility] UROBILINOGEN UA (POCT) 1.0 E.U./dL S[place]ie l E.U./dL [facility] ANES POSTPROC EVALon 023 ANES POSTPROC EVAL HNO ID: [id number] Author: Jemal Meza MD Service: Anesthesiology Author Type: Anesthesiologist Type: Anesthesia Postprocedure Evaluation Filed: 01/28/2023 9:59 AM Note Text: POST ANESTHESIA EVALUATION NOTE : 1960 Procedure Summary Date: 01/28/23 Room / Location: [place] [address] / [place] Anesthesia Start: 736 Anesthesia Stop: 909 [...] 12 01/28/23 0938 SpO2 97 % 01/28/23 09 Vitals shown include unvalidated device data. Post [...] January 28, 2023 TIME: 9:59 AM CSN: [id number] [facility] ANES PRE-OPon 01-28-2023 ANES PRE-OP HNO ID: [id number] Author: Jemal Meza MD Service: Anesthesiology Author Type: Anesthesiologist Type: Anesthesia Preprocedure Evaluation Filed: 01/28/2023 7:05 AM Note Text: ANESTHESIOLOGY DAY OF SURGERY NOTE : 1960 Procedure Information Date/Time: 01/28/23 0730 Procedures: INSERTION STIMULATOR GENERATOR BLADDER (Bilateral: Back) IMPLANT STIMULATOR LEAD(S) BLADDER INCISIONAL APPROACH (Bilateral: Back) FLUOROSCOPIC GUIDANCE/LOCALIZATION OF NEEDLE/CATHETER TIP FOR DIAG OR THERAPUETIC SPINE/PARASPINOUS INJECTION PROCEDURES (Bilateral: Back) Location: [place] OR03 / [place] Surgeons: John Mg MD Estimated body [...] January 28, 2023 TIME: 7:05 AM CSN: [id number] [facility] OPERATIVE NOon 01-28-2023 OPERATIVE NO HNO ID: [id number] Author: John Mg MD Service: Urogynecology Author Type: Physician Type: Operative Report Filed: 01/30/2023 4:29 PM Note Text: OPERATIVE/PROCEDURE REPORT LOG ID: [id number] Surgery/Procedure Date: 01/28/2023 Incision/Procedure Start Time: 7:59 AM Incision Close/Procedure End Time: 9:00 AM Surgeon(s)/Proceduralist(s) and Dairy Farm Manager(s): Surgeon(s) and Role: * John Mg MD - Primary * Darin Schulz MD - Resident - Assisting * Claudette Rojo MD - Fellow * Wiley Benitez MD Registered Nurse Lead Teller: Betty García RN Procedure(s): 1. InterStim Peripheral Nerve Stimulation Stage 1- Incision and implantation of tined quadripolar lead electrodes into left S3 Foramen (18030) 2. Fluoroscopic guidance for needle placement (23968) 3. Implantation of InterStim II neurogenerator, electrical [...] Implant Name Type Inv. Item Serial No. Endoscopy Technician Lot No. LRB No. Used Action LEAD INTRSTIM MRI 28CM - [id number] Lead LEAD INTRSTIM MRI 28CM [employer] [id number] N/A 1 Implanted INTERSTIM X RECHARGE FREE NEUROSTIMULATOR - [id number] Stimulator INTERSTIM X RECHARGE FREE NEUROSTIMULATOR [id number] [employer] Left 1 Implanted Pre-Op/Pre-Procedure Diagnosis: [...] The pa (more content not included)... Normal [facility] XR FLUOROSCOPYon 01-28-2023 XR FLUOROSCOPY * * [...] Please refer to the performing LIP's report. Fermenter Operator: JUAN Transcribe Date/Time: Jan 28 2023 10:20A Dictated by : ALLYSON BUTLER MD This examination was interpreted and the report reviewed and electronically signed by: ALLYSON BUTLER MD on Jan 28 2023 10:21AM EST [id number] Normal [facility] HISTORY PHYSICALon 3 HISTORY PHYSICAL HNO ID: [id number] Author: Abdulkadir Amaya PA-C Service: ? Author Type: Physician Dairy Farm Manager Type: HANDP Filed: 01/12/2023 11:08 AM Note [...] Admin: COVID-19 vaccine, age 12+ yr, bivalent ([employer]) 12/22/2021 Imm Admin: COVID-19 original vaccine, age 12+ yr, monovalent ([employer] - TALBOT TOP) 04/07/2021 Imm Admin: COVID-19 original vaccine, age 12+ yr, monovalent ([employer] - PURPLE TOP) Only the first 3 [...] manage symptoms. Procedure scheduled on 01/28/2023 at [place]. REVIEW OF SYSTEMS: General: No weight loss, malaise or fevers. Neurological: No history of TIA's, stroke, EDUCATIONAL DIRECTOR tumor, impaired sensorium, hemiplegia, paraplegia or quadraplegia. [...] arrhythmia, atrial fibrillation, CHF, hyperlipidemia, hypertension, recent NM and murmur/valvular heart disease. 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 Normal [facility] LUNG VOLUMESon 11-16-2022 [facility] SPIROMETRY BASELINE ONLYon 0 11-16-2022 DLCO (ml/min/mmHg) 17.31 ml/min/mmHg [facility] DLCO/VA (ml/min/mmHg/L) 3.99 ml/min/mmHg/L [facility] ERV BOX (L) 0.42 L [facility] XDF59-14% PRE (L/S) 3.85 L/S [facility] FEV1 PRE (L) 2.67 L [facility] FEV1/FVC PRE (%) 86 % [facility] FRC Box (L) 2.34 L [facility] FVC PRE (L) 3.10 L [facility] IC BOX (L) 2.66 L [facility] PEF PRE (L/S) 6.31 L/S [facility] RV Box (L) 1.79 L [facility] RV/TLC Box (%) 37 % [facility] TLC Box (L) 4.87 L [facility] VA (L) 4.33 L [facility] VC (L) BOX 3.[address] [facility] CT CHEST WO IVCONon 10-28-19 [facility] NM RENAL FLOW/FXN W PHARMon 10-15-2022 [...] pelvis dilation. Split differential function, as described. Fermenter Operator: JUAN Transcribe Date/Time: Oct 15 2022 11:17A Dictated by : JEMAL HANNA DO This examination was interpreted and the report reviewed and electronically signed by: JEMAL HANNA DO on Oct 15 2022 11:46AM EST [id number] Normal [facility] XR Abdomen Supine and Uprigh ton 08-13-2022 IMPRESSION: Findings as discussed under Results portion of report. Fermenter Operator: JUAN Transcribe Date/Time: Aug 13 2022 11:10A Dictated by : KARLA BENAVIDEZ DO This examination was interpreted and the report reviewed and electronically signed by: KARLA BENAVIDEZ DO on Aug 13 2022 11:13AM EST [facility] * * *Final Report* * * [...] be identified. No bony abnormalities are seen [facility] Provider, [facility] - 08/13/2022 * * *Final Report* * [...] as discussed under Results portion of report. Fermenter Operator: JUAN Transcribe Date/Time: Aug 13 2022 11:10A Dictated by : KARLA BENAVIDEZ DO This examination was interpreted and the report reviewed and electronically signed by: KARLA BENAVIDEZ DO on Aug 13 2022 11:13AM EST [facility] XR Abdomen Supine and Uprigh tOrdered By: [facility] Provider on 08-13-2022 [facility] XR CHEST 2V FRONTAL/LATon [facility] XR Chest PA and Lateralon IMPRESSION: 1. Chronic fibrotic and other densities in the mid to lower lung saavedra bilaterally.. 2. Postsurgical changes right lower lobe. 3. No acute changes. Fermenter Operator: JUAN Transcribe Date/Time: Aug 12 2022 6:58P Dictated by : MAHENDRA CARRILLO MD This examination was interpreted and the report reviewed and electronically signed by: MAHENDRA CARRILLO MD on Aug 12 2022 7:04PM EST [facility] * * *Final [...] soft tissues: Unremarkable. DIVISION OF RADIOLOGY Provider, [facility] - 08/12/2022 * * *Final [...] devices: None. Lungs and pleura: Fine chain ricik again seen in the lower lobe.. Chronic fibrotic and/or atelectatic densities in the mid to lower lung saavedra bilaterally. No pleural effusion. No pneumothorax. Cardiomediastinal silhouette: Normal cardiomediastinal silhouette. Bones and soft tissues: Unremarkable. IMPRESSION IMPRESSION: 1. Chronic fibrotic and other densities in the mid to lower lung saavedra bilaterally.. 2. Postsurgical changes right lower lobe. 3. No acute changes. Fermenter Operator: JUAN Transcribe Date/Time: Aug 12 2022 6:58P Dictated by : MAHENDRA CARRILLO MD This examination was interpreted and the report reviewed and electronically signed by: MAHENDRA CARRILLO MD on Aug 12 2022 7:04PM EST [facility] Radiology Study observation (narrative) [facility] XR Chest PA and LateralOrder ed By: [facility] Provider on 08-12-2022 [facility] X[facility] ABDOMEN 1V SUPINEon 08-11 XR [...] as discussed under Results portion of report. Fermenter Operator: JUAN Transcribe Date/Time: Aug 13 2022 11:10A Dictated by : KARLA BENAVIDEZ DO This examination was interpreted and the report reviewed and electronically signed by: KARLA BENAVIDEZ DO on Aug 13 2022 11:13AM EST [id number] Normal [facility] XR Abdomen Supine and Uprigh ton 08-11-2022 Radiology Study observation (narrative) [facility] CHYNA SCREENING W TOMOon 07-23 [facility] STREP A MOLECULAR (POC)on Procedural Control Valid [facility] Strep A (POCT) Negative Negative [facility] CT UROGRAM WO/W IVCONon 05-18 [facility] UA DIP, URINE (POC)on 2022 BILIRUBIN UA (POCT) Negative Negative [facility] CLARITY UA (POCT) Clear [facility] COLOR UA (POCT) [place] [facility] GLUCOSE UA (POCT) Negative Negative mg/dL [facility] HEMOGLOBIN/BLOOD UA (POCT) Large Abnormal Negative [facility] KETONE UA (POCT) Negative Negative mg/dL [facility] LEUKOCYTES UA (POCT) Small Abnormal Negative [facility] NITRITE UA (POCT) Negative Negative [facility] PH UA (POCT) 6.5 4.5 - 8.0 [facility] Protein Ql (U) 100 mg/dL Abnormal Negative mg/dL [facility] SPECIFIC GRAVITY UA (POCT) 1.015 1.005 - 1.030 [facility] UROBILINOGEN UA (POCT) 0.2 E.U./dL Sallie l E.U./dL [facility] CT CHEST WO IVCONon 04-06-20 [facility] UA DIP, URINE (POC)on 2021 BILIRUBIN UA (POCT) Negative Negative [facility] CLARITY UA (POCT) [facility] COLOR UA (POCT) Yellow [facility] GLUCOSE UA (POCT) Negative Negative mg/dL [facility] HEMOGLOBIN/BLOOD UA (POCT) Moderate Abnormal Negative [facility] KETONE UA (POCT) Negative Negative mg/dL [facility] LEUKOCYTES UA (POCT) Trace Abnormal Negative [facility] NITRITE UA (POCT) Negative Negative [facility] PH UA (POCT) 5.0 4.5 - 8.0 [facility] Protein Ql (U) Negative Negative mg/dL [facility] SPECIFIC GRAVITY UA (POCT) >=1.030 1.005 - 1.030 [facility] UROBILINOGEN UA (POCT) 0.2 E.U./dL S[place]ie l E.U./dL [facility] URINE CULTUREon 03-18-2022 Bacteria identified Cx Nom (U) >=100,000 CFU/ml Escherichia coli Abnormal [facility] Bacteria identified Cx Nom (U) 50,000-<100,000 CFU/ml Proteus mirabilis Abnormal [facility] UA DIP, URINE (POC)on 2021 BILIRUBIN UA (POCT) Negative Negative [facility] CLARITY UA (POCT) Clear [facility] COLOR UA (POCT) Yellow [facility] GLUCOSE UA (POCT) Negative Negative mg/dL [facility] HEMOGLOBIN/BLOOD UA (POCT) Small Abnormal Negative [facility] KETONE UA (POCT) Negative Negative mg/dL [facility] LEUKOCYTES UA (POCT) Moderate Abnormal Negative [facility] NITRITE UA (POCT) Negative Negative [facility] PH UA (POCT) 6.5 4.5 - 8.0 [facility] Protein Ql (U) Negative Negative mg/dL [facility] SPECIFIC GRAVITY UA (POCT) 1.020 1.005 - 1.030 [facility] UROBILINOGEN UA (POCT) 0.2 E.U./dL S[place]ie l E.U./dL [facility] URINE CULTUREon 03-16-2022 Bacteria identified Cx Nom (U) Invalid Interpretation Code [facility] US FEMALE PELVIS TRANSVAGon 12-01-2021 [facility] UA DIP, URINE (POC)on 2021 BILIRUBIN UA (POCT) Negative Negative [facility] CLARITY UA (POCT) Clear [facility] COLOR UA (POCT) Yellow [facility] GLUCOSE UA (POCT) Negative Negative mg/dL [facility] HEMOGLOBIN/BLOOD UA (POCT) Moderate Abnormal Negative [facility] KETONE UA (POCT) Negative Negative mg/dL [facility] LEUKOCYTES UA (POCT) Negative Negative [facility] NITRITE UA (POCT) Negative Negative [facility] PH UA (POCT) 5.0 4.5 - 8.0 [facility] Protein Ql (U) Negative Negative mg/dL [facility] SPECIFIC GRAVITY UA (POCT) >=1.030 1.005 - 1.030 [facility] UROBILINOGEN UA (POCT) 0.2 E.U./dL Sallie l E.U./dL [facility] UA DIP, URINE (POC)on 2021 BILIRUBIN UA (POCT) Negative Negative [facility] CLARITY UA (POCT) Clear [facility] COLOR UA (POCT) Yellow [facility] GLUCOSE UA (POCT) Negative Negative mg/dL [facility] HEMOGLOBIN/BLOOD UA (POCT) Large Abnormal Negative [facility] KETONE UA (POCT) Negative Negative mg/dL [facility] LEUKOCYTES UA (POCT) Small Abnormal Negative [facility] NITRITE UA (POCT) Negative Negative [facility] PH UA (POCT) 5.0 4.5 - 8.0 [facility] Protein Ql (U) 30 mg/dL Abnormal Negative mg/dL [facility] SPECIFIC GRAVITY UA (POCT) 1.015 1.005 - 1.030 [facility] UROBILINOGEN UA (POCT) 0.2 E.U./dL [place] E.U./dL [facility] VARICELLA ZOSTER IGGon 08-14 Varicella Zoster IgG, Qual Positive Positive [facility] XR Ankle - right AP and Late ral and obliqueon 06-26-2020 IMPRESSION: Osseous demineralization with nondisplaced fracture of the lateral malleolus. Fermenter Operator: [facility] Transcribe Date/Time: Jun 26 2020 4:20P Dictated by : JIMENA CHI MD This examination was interpreted and the report reviewed and electronically signed by: JIMENA CHI MD on Jun 26 2020 4:25PM [facility] DIVISION OF RADIOLOGY * * *Final [...] Plantar calcaneal enthesophyte. DIVISION OF RADIOLOGY Provider, [facility] - 06/26/2020 * * *Final Report* * [...] with nondisplaced fracture of the lateral malleolus. Fermenter Operator: [facility] Transcribe Date/Time: Jun 26 2020 4:20P Dictated by : JIMENA CHI MD This examination was interpreted and the report reviewed and electronically signed by: JIMENA CHI MD on Jun 26 2020 4:25PM EST [facility] Radiology Study observation (narrative) [facility] XR Ankle - right AP and Late ral and obliqueOrdered By: [facility]cf Provider on 06-26-2020 [facility] Vital Signs Date Time Vital Sign Value Performing Clinician Ramiro shelby 02-16-2025 08:15-0400 Body temperature 97.7 [degF] Dr. Priyanka Smith MD Work Phone: 0(492)321-600606 [place] [address] 02-16-2025 08:15-0400 Diastolic blood pressure 76 mm[Hg] Dr. Priyanka mSith MD Work Phone: 1(772)792-830206 [place] [address] 02-16-2025 08:15-0400 Heart rate 78 /min Dr. Priyanka Smith MD Work Phone: 9(224)433-421006 [place] [address] 02-16-2025 08:15-0400 Respiratory rate 16 /min Dr. Priyanka Smith MD Work Phone: 3(626)[phone] [place] [address] 02-16-2025 08:15-0400 SaO2% (BldA) [Mass fraction] 100 % Dr. Priyanka Smith MD Work Phone: 1(881)410-580706 [place] [address] 02-16-2025 08:15-0400 Systolic blood pressure 132 mm[Hg] Dr. Priyanka Smith MD Work Phone: 1(472)367-547906 [place] [address] 02-16-2025 06:20-0400 Body height 165.[address] Priyanka Smith MD Work Phone: 8(652)941-125806 [place] [address] 02-16-2025 06:20-0400 Body mass index (BMI) [Ratio] 26.2 kg/m2 Dr. Priyanka Smith MD Work Phone: 8(973)684-321706 [place] [address] 02-16-2025 06:20-0400 Body weight 71.[address] Priyanka Smith MD Work Phone: 9(729)305-317406 [place] [address] 01-30-2025 09:51-0400 Body height 165.1 cm Jasmyne Day MD Work Phone: [facility] 01-30-2025 09:51-0400 Body mass index (BMI) [Ratio] 27.19 kg/m2 Jasmyne Day MD Work Phone: [facility] 01-30-2025 09:51-0400 Body weight 74.12 kg Jasmyne Day MD Work Phone: [facility] 01-30-2025 09:51-0400 Diastolic blood pressure 78 mm[Hg] Jasmyne Day MD Work Phone: [facility] 01-30-2025 09:51-0400 Heart rate 76 /min Jasmyne Day MD Work Phone: [facility] 01-30-2025 09:51-0400 SaO2% (BldA) [Mass fraction] 96 % Jasmyne Day MD Work Phone: [facility] 01-30-2025 09:51-0400 Systolic blood pressure 124 mm[Hg] Jasmyne Day MD Work Phone: [facility] 01-26-2025 04:35-0400 Body temperature 97.59 [degF] Replise Work Phone: [facility] 01-26-2025 04:35-0400 Diastolic blood pressure 78 mm[Hg] Replise Work Phone: [facility] 01-26-2025 04:35-0400 Heart rate 82 /min Replise Work Phone: [facility] 01-26-2025 04:35-0400 Respiratory rate 16 /min Replise Work Phone: [facility] 01-26-2025 04:35-0400 SaO2% (BldA) [Mass fraction] 100 % Re[facility] Work Phone: [facility] 01-26-2025 04:35-0400 Systolic blood pressure 127 mm[Hg] Replise Work Phone: [facility] 01-22-2025 03:52-0400 Body height 166.4 cm Replise Work Phone: [facility] 01-22-2025 03:52-0400 Body mass index (BMI) [Ratio] 27.7 kg/m2 Re[employer] Work Phone: [facility] 01-22-2025 03:52-0400 Body weight 76.66 kg Replise Work Phone: [facility] 01-22-2025 03:13-0400 Body temperature 99.5 [degF] Dr. Priyanka Smith MD Work Phone: [facility] 01-22-2025 03:13-0400 Diastolic blood pressure 73 mm[Hg] Dr. Priyanka Smith MD Work Phone: 9(009)104-510406 [place] [address] 01-22-2025 03:13-0400 Heart rate 113 /min Dr. Priyanka Smith MD Work Phone: 8(607)625-874754 [address] 01-22-2025 03:13-0400 Respiratory rate 19 /min Dr. Priyanka Smith MD Work Phone: 7(179)538-638406 [place] [address] 01-22-2025 03:13-0400 SaO2% (BldA) [Mass fraction] 98 % Dr. Priyanka Smith MD Work Phone: 3(114)347-828606 [place] [address] 01-22-2025 03:13-0400 Systolic blood pressure 121 mm[Hg] Dr. Pryianka Smith MD Work Phone: [facility] 01-21-2025 19:26-0400 Body height 165.[address] Priyanka Smith MD Work Phone: [facility] 01-21-2025 19:26-0400 Body mass index (BMI) [Ratio] 27.6 kg/m2 Dr. Priyanka Smith MD Work Phone: [facility] 01-21-2025 19:26-0400 Body weight 75.[address] Priyanka Smith MD Work Phone: [facility] 01-10-2025 08:32-0400 Body height 165.1 cm Jasmyne Day MD Work Phone: [facility] 01-10-2025 08:32-0400 Body mass index (BMI) [Ratio] 27.12 kg/m2 Jasmyne Day MD Work Phone: [facility] 01-10-2025 08:32-0400 Body weight 73.94 kg Jasmyne Day MD Work Phone: [facility] 01-09-2025 14:19-0400 Body height 165.1 cm Mathew Yang Jr., MD Work Phone: [facility] 01-09-2025 14:19-0400 Body mass index (BMI) [Ratio] 26.96 kg/m2 Mathew Yang Jr., MD Work Phone: [facility] 01-09-2025 14:19-0400 Body weight 73.48 kg Mathew Yang Jr., MD Work Phone: [facility] 12-27-2024 13:52-0400 Diastolic blood pressure 82 mm[Hg] Peyton Haagen 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 Work Phone: [facility] 12-27-2024 13:52-0400 Heart rate 82 /min Peyton Haagen 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 Work Phone: [facility] 12-27-2024 13:52-0400 Respiratory rate 16 /min Peyton Haagen 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 Work Phone: [facility] 12-27-2024 13:52-0400 SaO2% (BldA) [Mass fraction] 100 % Peyton Haagen 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 Work Phone: [facility] 12-27-2024 13:52-0400 Systolic blood pressure 114 mm[Hg] Peyton Haagen 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 Work Phone: [facility] 12-22-2024 14:10-0400 Body temperature 98.5 [degF] Dr. Priyanka Smith MD Work Phone: [facility] 12-22-2024 14:10-0400 Diastolic blood pressure 86 mm[Hg] Dr. Priyanka Smith MD Work Phone: [facility] 12-22-2024 14:10-0400 Heart rate 80 /min Dr. Priyanka Smith MD Work Phone: [facility] 12-22-2024 14:10-0400 Respiratory rate 16 /min Dr. Priyanka Smith MD Work Phone: [facility] 12-22-2024 14:10-0400 SaO2% (BldA) [Mass fraction] 100 % Dr. Priyanka Smith MD Work Phone: [facility] 12-22-2024 14:10-0400 Systolic blood pressure 121 mm[Hg] Dr. Priyanka Smith MD Work Phone: [facility] 12-22-2024 12:21-0400 Body height 165.[address] Priyanka Smith MD Work Phone: [facility] 12-22-2024 12:21-0400 Body mass index (BMI) [Ratio] 26 kg/m2 Dr. Priyanka Smith MD Work Phone: [facility] 12-22-2024 12:21-0400 Body weight [address] Priyanka Smith MD Work Phone: [facility] 12-13-2024 07:57-0400 Diastolic blood pressure 83 mm[Hg] Cnydi Podlogar 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 Work Phone: [facility] 12-13-2024 07:57-0400 Systolic blood pressure 121 mm[Hg] Cyndi Podlogar 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 Work Phone: [facility] 12-13-2024 07:37-0400 Body mass index (BMI) [Ratio] 26.49 kg/m2 Cyndi Podlogar 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 Work Phone: [facility] 12-13-2024 07:37-0400 Body weight 72.21 kg Cyndi Podlogar 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 Work Phone: [facility] 12-13-2024 07:37-0400 Heart rate 92 /min Cyndi Podlogar 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 Work Phone: [facility] 12-13-2024 07:37-0400 Respiratory rate 12 /min Cyndi Podlogar 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 Work Phone: [facility] 12-06-2024 08:07-0400 Body height 165.1 cm Charis Plotts RIPSAWYER.CNM Work Phone: [facility] 12-06-2024 08:07-0400 Body mass index (BMI) [Ratio] 26.69 kg/m2 Charis Plotts RIPSAWYER.CNM Work Phone: [facility] 12-06-2024 08:07-0400 Body weight 72.76 kg Charis Plotts RIPSAWYER.CNM Work Phone: [facility] 12-06-2024 08:07-0400 Diastolic blood pressure 60 mm[Hg] Charis Plotts RIPSAWYER.CNM Work Phone: [facility] 12-06-2024 08:07-0400 Systolic blood pressure 98 mm[Hg] Charis Plotts RIPSAWYER.CNM Work Phone: [facility] 11-29-2024 09:39-0400 SaO2% (BldA) [Mass fraction] 99 % Jasmyne Day MD Work Phone: [facility] 11-29-2024 09:35-0400 Body height 165.1 cm Jasmyne Day MD Work Phone: [facility] 11-29-2024 09:35-0400 Body mass index (BMI) [Ratio] 26.33 kg/m2 Jasmyne Day MD Work Phone: [facility] 11-29-2024 09:35-0400 Body weight 71.76 kg Jasmyne Day MD Work Phone: [facility] 11-16-2024 07:35-0400 Body height 165.1 cm Gemma Roberts 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 Work Phone: [facility] 11-16-2024 07:35-0400 Body mass index (BMI) [Ratio] 26.45 kg/m2 Gemma Roberts 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 Work Phone: [facility] 11-16-2024 07:35-0400 Body weight 72.1 kg Gemma Roberts 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 Work Phone: [facility] 11-16-2024 07:35-0400 SaO2% (BldA) [Mass fraction] 98 % Gemma Roberts 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 Work Phone: [facility] 10-31-2024 08:48-0400 Body mass index (BMI) [Ratio] 27.9 kg/m2 German Grubbs 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 Work Phone: [facility] 10-31-2024 08:48-0400 Body weight 72.58 kg German Grubbs 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 Work Phone: [facility] 10-31-2024 08:48-0400 Diastolic blood pressure 71 mm[Hg] German Grubbs 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 Work Phone: [facility] 10-31-2024 08:48-0400 Heart rate 67 /min German Grubbs 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 Work Phone: [facility] 10-31-2024 08:48-0400 Respiratory rate 16 /min German Grubbs 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 Work Phone: [facility] 10-31-2024 08:48-0400 Systolic blood pressure 109 mm[Hg] German Grubbs 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 Work Phone: [facility] 10-26-2024 09:19-0400 Body height 161.3 cm Karen Alcantara MD Work Phone: [facility] 10-26-2024 09:19-0400 Body mass index (BMI) [Ratio] 27.9 kg/m2 Karen Alcantara MD Work Phone: [facility] 10-26-2024 09:19-0400 Body weight 72.58 kg Karen Alcantara MD Work Phone: [facility] 10-26-2024 09:19-0400 Diastolic blood pressure 58 mm[Hg] Karen Alcantara MD Work Phone: [facility] 10-26-2024 09:19-0400 Heart rate 101 /min Karen Alcantara MD Work Phone: [facility] 10-26-2024 09:19-0400 Respiratory rate 14 /min Karen Alcantara MD Work Phone: [facility] 10-26-2024 09:19-0400 SaO2% (BldA) [Mass fraction] 100 % Karen Alcantara MD Work Phone: [facility] 10-26-2024 09:19-0400 Systolic blood pressure 102 mm[Hg] Karen Alcantara MD Work Phone: [facility] 10-26-2024 09:18-0400 Body height 161.3 cm Pulm Wstr Work Phone: [facility] 10-26-2024 09:18-0400 Body mass index (BMI) [Ratio] 27.9 kg/m2 Pulm Wstr Work Phone: [facility] 10-26-2024 09:18-0400 Body weight 72.58 kg Pulm Wstr Work Phone: [facility] 10-26-2024 09:18-0400 Heart rate 101 /min Pulm Wstr Work Phone: [facility] 10-26-2024 09:18-0400 Respiratory rate 14 /min Pulm Wstr Work Phone: [facility] 10-26-2024 09:18-0400 SaO2% (BldA) [Mass fraction] 100 % Pulm Wstr Work Phone: [facility] 09-22-2024 12:56-0400 Diastolic blood pressure 62 mm[Hg] Rika Teri 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 Work Phone: [facility] 09-22-2024 12:56-0400 Heart rate 117 /min Rika Teri 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 Work Phone: [facility] 09-22-2024 12:56-0400 Systolic blood pressure 85 mm[Hg] Rika Teri 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 Work Phone: [facility] 09-22-2024 12:54-0400 Body height 165.1 cm Rika Teri 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 Work Phone: [facility] 09-22-2024 12:54-0400 Body mass index (BMI) [Ratio] 27.26 kg/m2 Rikachandler Godoynn 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 Work Phone: [facility] 09-22-2024 12:54-0400 Body weight 74.3 kg Rika Adam 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 Work Phone: [facility] 09-22-2024 12:54-0400 SaO2% (BldA) [Mass fraction] 100 % Rika Adam 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 Work Phone: [facility] 09-11-2024 11:46-0400 Diastolic blood pressure 64 mm[Hg] Jasmyne Day MD Work Phone: [facility] 09-11-2024 11:46-0400 Heart rate 116 /min Jasmyne Day MD Work Phone: [facility] 09-11-2024 11:46-0400 Respiratory rate 18 /min Jasmyne Day MD Work Phone: [facility] 09-11-2024 11:46-0400 SaO2% (BldA) [Mass fraction] 99 % Jasmyne Day MD Work Phone: [facility] 09-11-2024 11:46-0400 Systolic blood pressure 104 mm[Hg] Jasmyne Day MD Work Phone: [facility] 08-31-2024 10:30-0400 Body mass index (BMI) [Ratio] 28.47 kg/m2 Priyanka Smith MD Work Phone: [facility] 08-31-2024 10:30-0400 Body weight 77.6 kg Priyanka Smith MD Work Phone: [facility] 08-31-2024 10:30-0400 Diastolic blood pressure 82 mm[Hg] Priyanka Smith MD Work Phone: [facility] 08-31-2024 10:30-0400 Heart rate 80 /min Priyanka Smith MD Work Phone: [facility] 08-31-2024 10:30-0400 Respiratory rate 16 /min Priyanka Smith MD Work Phone: [facility] 08-31-2024 10:30-0400 Systolic blood pressure 112 mm[Hg] Priyanka Smith MD Work Phone: [facility] 08-31-2024 09:41-0400 Body mass index (BMI) [Ratio] 28.39 kg/m2 Latha Cuevas MD Work Phone: [facility] 08-31-2024 09:41-0400 Body temperature 98.71 [degF] Latha Cuevas MD Work Phone: [facility] 08-31-2024 09:41-0400 Body weight 77.38 kg Latha Cuevas MD Work Phone: [facility] 08-31-2024 09:41-0400 Diastolic blood pressure 66 mm[Hg] Latha Cuevas MD Work Phone: [facility] 08-31-2024 09:41-0400 Respiratory rate 14 /min Latha Cuevas MD Work Phone: [facility] 08-31-2024 09:41-0400 Systolic blood pressure 118 mm[Hg] Latha Cuevas MD Work Phone: [facility] 08-09-2024 13:49-0400 Body height 165.1 cm Maira Chen 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 Work Phone: [facility] 08-09-2024 13:49-0400 Body mass index (BMI) [Ratio] 28.29 kg/m2 Maira Coyner 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 Work Phone: [facility] 08-09-2024 13:49-0400 Body weight 77.11 kg Maira Coyner 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 Work Phone: [facility] 08-03-2024 09:55-0400 Body height 165.1 cm Bogdan Roberts MD Work Phone: [facility] 08-03-2024 09:55-0400 Body mass index (BMI) [Ratio] 28.84 kg/m2 Bogdan Roberts MD Work Phone: [facility] 08-03-2024 09:55-0400 Body weight 78.6 kg Bogdan Roberts MD Work Phone: [facility] 08-03-2024 09:55-0400 Diastolic blood pressure 76 mm[Hg] Bogdan Roberts MD Work Phone: [facility] 08-03-2024 09:55-0400 Heart rate 88 /min Bogdan Roberts MD Work Phone: [facility] 08-03-2024 09:55-0400 SaO2% (BldA) [Mass fraction] 99 % Bogdan Roberts MD Work Phone: [facility] 08-03-2024 09:55-0400 Systolic blood pressure 114 mm[Hg] Bogdan Roberts MD Work Phone: [facility] 07-31-2024 11:21-0400 Diastolic blood pressure 64 mm[Hg] Juwan Amadou 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 Work Phone: [facility] 07-31-2024 11:21-0400 Systolic blood pressure 92 mm[Hg] Juwan Amadou 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 Work Phone: [facility] 07-31-2024 10:49-0400 Body mass index (BMI) [Ratio] 29.29 kg/m2 Juwan Amadou 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 Work Phone: [facility] 07-31-2024 10:49-0400 Body weight 79.83 kg Juwan Amadou 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 Work Phone: [facility] 07-31-2024 10:49-0400 Heart rate 90 /min Juwan Amadou 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 Work Phone: [facility] 07-31-2024 10:49-0400 Respiratory rate 16 /min Juwan Amadou 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 Work Phone: [facility] 07-31-2024 10:49-0400 SaO2% (BldA) [Mass fraction] 100 % Juwan Land 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 Work Phone: [facility] 07-10-2024 09:36-0500 Body height 165.1 cm Jacquelineshoaib Leonhof 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 Work Phone: [facility] 07-10-2024 09:36-0500 Body mass index (BMI) [Ratio] 29.64 kg/m2 Jacqueline Tannhof 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 Work Phone: [facility] 07-10-2024 09:36-0500 Body weight 80.8 kg Jacqueline Tannhof 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 Work Phone: [facility] 07-10-2024 09:36-0500 Diastolic blood pressure 66 mm[Hg] Jacqueline Tannhof 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 Work Phone: [facility] 07-10-2024 09:36-0500 Heart rate 88 /min Jacqueline Tannhof 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 Work Phone: [facility] 07-10-2024 09:36-0500 Respiratory rate 16 /min Jacqueline Tannhof 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 Work Phone: [facility] 07-10-2024 09:36-0500 Systolic blood pressure 98 mm[Hg] Jacqueline Tannhof 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 Work Phone: [facility] 06-20-2024 08:44-0500 Body mass index (BMI) [Ratio] 28.96 kg/m2 Becca Click 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 Work Phone: [facility] 06-20-2024 08:44-0500 Body weight 78.93 kg Becca Click 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 Work Phone: [facility] 06-20-2024 08:44-0500 Diastolic blood pressure 69 mm[Hg] Becca Click 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 Work Phone: [facility] 06-20-2024 08:44-0500 Heart rate 80 /min Becca Click 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 Work Phone: [facility] 06-20-2024 08:44-0500 SaO2% (BldA) [Mass fraction] 97 % Becca Mir 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 Work Phone: [facility] 06-20-2024 08:44-0500 Systolic blood pressure 99 mm[Hg] Becca Mir 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 Work Phone: [facility] 05-30-2024 07:45-0500 Body height 165.1 cm Gemma Roberts 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 Work Phone: [facility] 05-30-2024 07:45-0500 Body mass index (BMI) [Ratio] 29.86 kg/m2 Gemma Roberts 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 Work Phone: [facility] 05-30-2024 07:45-0500 Body weight 81.4 kg Gemma Roberts 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 Work Phone: [facility] 05-30-2024 07:45-0500 Diastolic blood pressure 89 mm[Hg] Gemma Roberts 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 Work Phone: [facility] Comment on above: Provider notified 05-30-2024 07:45-0500 Heart rate 77 /min Gemma Roberts 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 Work Phone: [facility] 05-30-2024 07:45-0500 SaO2% (BldA) [Mass fraction] 98 % Gemma Roberts 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 Work Phone: [facility] 05-30-2024 07:45-0500 Systolic blood pressure 153 mm[Hg] Gemma Roberts 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 Work Phone: [facility] Comment on above: Provider notified 05-24-2024 08:16-0500 Body mass index (BMI) [Ratio] 29.86 kg/m2 Jacqueline Valadez 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 Work Phone: [facility] 05-24-2024 08:16-0500 Body weight 81.4 kg Jacqueline Valadez 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 Work Phone: [facility] 05-24-2024 08:16-0500 Diastolic blood pressure 90 mm[Hg] Jacqueline Edwardhof 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 Work Phone: [facility] 05-24-2024 08:16-0500 Heart rate 93 /min Jacqueline Leonhof 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 Work Phone: [facility] 05-24-2024 08:16-0500 Respiratory rate 16 /min Jacqueline Leonhof 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 Work Phone: [facility] 05-24-2024 08:16-0500 SaO2% (BldA) [Mass fraction] 100 % Jacqueline Leonhof 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 Work Phone: [facility] 05-24-2024 08:16-0500 Systolic blood pressure 120 mm[Hg] Jacquelineshoaib Leonhof 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 Work Phone: [facility] 05-18-2024 11:07-0500 Diastolic blood pressure 98 mm[Hg] Latha Cuevas MD Work Phone: [facility] Comment on above: home BP monitor 05-18-2024 11:07-0500 Systolic blood pressure 146 mm[Hg] Latha Cuevas MD Work Phone: [facility] Comment on above: home BP monitor 05-18-2024 11:02-0500 Body height 165.1 cm Latha Cuevas MD Work Phone: [facility] 05-18-2024 11:02-0500 Body mass index (BMI) [Ratio] 29.85 kg/m2 Latha Cuevas MD Work Phone: [facility] 05-18-2024 11:02-0500 Body weight 81.38 kg Latha Cuevas MD Work Phone: [facility] 05-18-2024 11:02-0500 Heart rate 87 /min Latha Cuevas MD Work Phone: [facility] 05-18-2024 11:02-0500 Respiratory rate 20 /min Latha Cuevas MD Work Phone: [facility] 05-18-2024 11:02-0500 SaO2% (BldA) [Mass fraction] 97 % Latha Cuevas MD Work Phone: [facility] 05-05-2024 08:14-0500 Body height 165.1 cm Latha Cuevas MD Work Phone: [facility] 05-05-2024 08:14-0500 Body mass index (BMI) [Ratio] 29.39 kg/m2 Latha Cuevas MD Work Phone: [facility] 05-05-2024 08:14-0500 Body temperature 98.2 [degF] Latha Cuevas MD Work Phone: [facility] 05-05-2024 08:14-0500 Body weight 80.11 kg Latha Cuevas MD Work Phone: [facility] 05-05-2024 08:14-0500 Diastolic blood pressure 76 mm[Hg] Latha Cuevas MD Work Phone: [facility] 05-05-2024 08:14-0500 Heart rate 91 /min Latha Cuevas MD Work Phone: [facility] 05-05-2024 08:14-0500 SaO2% (BldA) [Mass fraction] 97 % Latha Cuevas MD Work Phone: [facility] 05-05-2024 08:14-0500 Systolic blood pressure 108 mm[Hg] Latha Cuevas MD Work Phone: [facility] 04-17-2024 09:20-0500 Body mass index (BMI) [Ratio] 29.29 kg/m2 Karen Alcantara MD Work Phone: [facility] 04-17-2024 09:20-0500 Body weight 79.83 kg Karen Alcantara MD Work Phone: [facility] 04-10-2024 15:56-0500 Body mass index (BMI) [Ratio] 30.12 kg/m2 Jonathan Monterroso 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 Work Phone: [facility] 04-10-2024 15:56-0500 Body weight 82.1 kg Jonathan Monterroso 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 Work Phone: [facility] 04-10-2024 15:56-0500 Diastolic blood pressure 79 mm[Hg] Jonathan Monterroso 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 Work Phone: [facility] 04-10-2024 15:56-0500 Heart rate 86 /min Jonathan Monterroso 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 Work Phone: [facility] 04-10-2024 15:56-0500 Respiratory rate 16 /min Jonathan Monterroso 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 Work Phone: [facility] 04-10-2024 15:56-0500 Systolic blood pressure 119 mm[Hg] Jonathan Monterroso 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 Work Phone: [facility] 04-07-2024 09:26-0500 Body height 165.1 cm Phong Blake MD Work Phone: [facility] 04-07-2024 09:26-0500 Body mass index (BMI) [Ratio] 31.45 kg/m2 Phong Blake MD Work Phone: [facility] 04-07-2024 09:26-0500 Body weight 85.73 kg Phong Blake MD Work Phone: [facility] 04-07-2024 09:26-0500 Diastolic blood pressure 68 mm[Hg] Phong Blake MD Work Phone: [facility] 04-07-2024 09:26-0500 Heart rate 84 /min Phong Blake MD Work Phone: [facility] 04-07-2024 09:26-0500 Systolic blood pressure 104 mm[Hg] Phong Blake MD Work Phone: [facility] 03-23-2024 17:10-0500 Body temperature 97.2 [degF] Katherine Bowen MD Work Phone: [facility] 03-23-2024 17:10-0500 Diastolic blood pressure 87 mm[Hg] Katherine Bowen MD Work Phone: [facility] 03-23-2024 17:10-0500 Heart rate 92 /min Katherine Bowen MD Work Phone: [facility] 03-23-2024 17:10-0500 Respiratory rate 16 /min Katherine Bowen MD Work Phone: [facility] 03-23-2024 17:10-0500 SaO2% (BldA) [Mass fraction] 100 % Katheirne Bowen MD Work Phone: [facility] 03-23-2024 17:10-0500 Systolic blood pressure 119 mm[Hg] Katherine Bowen MD Work Phone: [facility] 03-16-2024 14:13-0400 Body mass index (BMI) [Ratio] 30.82 kg/m2 Priyanka Smith MD Work Phone: [facility] 03-16-2024 14:13-0400 Body weight 84 kg Priyanka Smith MD Work Phone: [facility] 03-16-2024 14:13-0400 Diastolic blood pressure 68 mm[Hg] Priyanka Smith MD Work Phone: [facility] 03-16-2024 14:13-0400 Heart rate 74 /min Priyanka Smith MD Work Phone: [facility] 03-16-2024 14:13-0400 Respiratory rate 16 /min Priyanka Smith MD Work Phone: [facility] 03-16-2024 14:13-0400 Systolic blood pressure 100 mm[Hg] Priyanka Smith MD Work Phone: [facility] 03-16-2024 08:57-0400 Body height 165.1 cm Gemma Roberts APRN.SOLAR PANEL TECHNICIAN Work Phone: [facility] 03-16-2024 08:57-0400 Body mass index (BMI) [Ratio] 30.78 kg/m2 Gemma Armando 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 Work Phone: [facility] 03-16-2024 08:57-0400 Body weight 83.9 kg Gemma Roberts 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 Work Phone: [facility] 03-16-2024 08:57-0400 Diastolic blood pressure 74 mm[Hg] Gemma Roberts 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 Work Phone: [facility] 03-16-2024 08:57-0400 Heart rate 78 /min Gemma Roberts 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 Work Phone: [facility] 03-16-2024 08:57-0400 SaO2% (BldA) [Mass fraction] 98 % Gemma Roberts 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 Work Phone: [facility] 03-16-2024 08:57-0400 Systolic blood pressure 110 mm[Hg] Gemma Roberts 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 Work Phone: [facility] 03-09-2024 12:38-0400 Body temperature 97.59 [degF] Noel Contreras MD Work Phone: [facility] 03-09-2024 12:38-0400 Diastolic blood pressure 66 mm[Hg] Noel Contreras MD Work Phone: [facility] 03-09-2024 12:38-0400 Heart rate 87 /min Noel Contreras MD Work Phone: [facility] 03-09-2024 12:38-0400 Respiratory rate 12 /min Noel Contreras MD Work Phone: [facility] 03-09-2024 12:38-0400 SaO2% (BldA) [Mass fraction] 99 % Noel Contreras MD Work Phone: [facility] 03-09-2024 12:38-0400 Systolic blood pressure 99 mm[Hg] Noel Contreras MD Work Phone: [facility] 03-07-2024 09:08-0400 Body height 165.1 cm Noel Contreras MD Work Phone: [facility] 03-07-2024 09:08-0400 Body mass index (BMI) [Ratio] 29.62 kg/m2 Noel Contreras MD Work Phone: [facility] 03-07-2024 09:08-0400 Body weight 80.74 kg Noel Contreras MD Work Phone: [facility] 03-03-2024 10:24-0400 Diastolic blood pressure 60 mm[Hg] Wiley Benitez MD Work Phone: [facility] 03-03-2024 10:24-0400 Heart rate 99 /min Wiley Benitez MD Work Phone: [facility] 03-03-2024 10:24-0400 Systolic blood pressure 99 mm[Hg] Wiley Benitez MD Work Phone: [facility] 03-01-2024 08:38-0400 Body mass index (BMI) [Ratio] 30.32 kg/m2 Jacqueline Tannhof 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 Work Phone: [facility] 03-01-2024 08:38-0400 Body weight 82.64 kg Jacqueline Tannhof 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 Work Phone: [facility] 03-01-2024 08:38-0400 Diastolic blood pressure 58 mm[Hg] Jacqueline Tannhof 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 Work Phone: [facility] 03-01-2024 08:38-0400 Heart rate 72 /min Jacqueline Tannhof 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 Work Phone: [facility] 03-01-2024 08:38-0400 Respiratory rate 16 /min Jacqueline Tannhof 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 Work Phone: [facility] 03-01-2024 08:38-0400 Systolic blood pressure 82 mm[Hg] Jacqueline Tannhof 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 Work Phone: [facility] 01-13-2024 14:01-0400 Body height 165.1 cm Bogdan Roberts MD Work Phone: [facility] 01-13-2024 14:01-0400 Body mass index (BMI) [Ratio] 32.14 kg/m2 Bogdan Roberts MD Work Phone: [facility] 01-13-2024 14:01-0400 Body weight 87.6 kg Bogdan Roberts MD Work Phone: [facility] 01-13-2024 14:01-0400 Diastolic blood pressure 66 mm[Hg] Bogdan Roberts MD Work Phone: [facility] 01-13-2024 14:01-0400 Heart rate 62 /min Bogdan Roberts MD Work Phone: [facility] 01-13-2024 14:01-0400 SaO2% (BldA) [Mass fraction] 98 % Bogdan Roberts MD Work Phone: [facility] 01-13-2024 14:01-0400 Systolic blood pressure 101 mm[Hg] Bogdan Roberts MD Work Phone: [facility] 01-11-2024 11:18-0400 Body height 162.6 cm Wiley Benitez MD Work Phone: [facility] 01-11-2024 11:18-0400 Body mass index (BMI) [Ratio] 32.96 kg/m2 Wiley Benitez MD Work Phone: [facility] 01-11-2024 11:18-0400 Body weight 87.09 kg Wiley Benitez MD Work Phone: [facility] 01-11-2024 11:18-0400 Diastolic blood pressure 80 mm[Hg] Wiley Benitez MD Work Phone: [facility] 01-11-2024 11:18-0400 Systolic blood pressure 118 mm[Hg] Wiley Benitez MD Work Phone: [facility] 12-28-2023 07:05-0400 Body mass index (BMI) [Ratio] 32.54 kg/m2 Jacqueline Valadez APRN.CNP Work Phone: [facility] 12-28-2023 07:05-0400 Body weight 86 kg Jacqueline Edwardhooanh 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 Work Phone: [facility] 12-28-2023 07:05-0400 Diastolic blood pressure 70 mm[Hg] Jacqueline Leonhof 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 Work Phone: [facility] 12-28-2023 07:05-0400 Heart rate 70 /min Jacquelineshoaib Leonhof 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 Work Phone: [facility] 12-28-2023 07:05-0400 Respiratory rate 16 /min Jacquelineshoaib Leonhof 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 Work Phone: [facility] 12-28-2023 07:05-0400 SaO2% (BldA) [Mass fraction] 97 % Jacqueline Leonhof 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 Work Phone: [facility] 12-28-2023 07:05-0400 Systolic blood pressure 110 mm[Hg] Jacqueline Leonhof 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 Work Phone: [facility] 12-21-2023 13:53-0400 Body height 162.6 cm Mathew Yang Jr., MD Work Phone: [facility] 12-21-2023 13:53-0400 Body mass index (BMI) [Ratio] 32.44 kg/m2 Mathew Yang Jr., MD Work Phone: [facility] 12-21-2023 13:53-0400 Body weight 85.73 kg Mathew Yang Jr., MD Work Phone: [facility] 12-01-2023 13:46-0400 Diastolic blood pressure 67 mm[Hg] Wiley Benitez MD Work Phone: [facility] 12-01-2023 13:46-0400 Systolic blood pressure 100 mm[Hg] Wiley Benitez MD Work Phone: [facility] 11-29-2023 08:14-0400 Body height 162.6 cm Charis Lopez RIPSAWYER.CN Work Phone: [facility] 11-29-2023 08:14-0400 Body mass index (BMI) [Ratio] 32.61 kg/m2 Charsi Plotts RIPSAWYER.CNM Work Phone: [facility] 11-29-2023 08:14-0400 Body weight 86.18 kg Charis Plotts RIPSAWYER.CNM Work Phone: [facility] 11-29-2023 08:14-0400 Diastolic blood pressure 76 mm[Hg] Charis Plotts RIPSAWYER.CNM Work Phone: [facility] 11-29-2023 08:14-0400 Systolic blood pressure 114 mm[Hg] Charis Plotts RIPSAWYER.CNM Work Phone: [facility] 11-09-2023 08:49-0400 Body mass index (BMI) [Ratio] 32.28 kg/m2 Mathew Yang Jr., MD Work Phone: [facility] 11-09-2023 08:49-0400 Body weight 88 kg Mathew Yang Jr., MD Work Phone: [facility] 10-14-2023 06:53-0400 Body mass index (BMI) [Ratio] 32.62 kg/m2 Jacqueline Valadez 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 Work Phone: [facility] 10-14-2023 06:53-0400 Body weight 88.91 kg Jacqueline Metcalff 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 Work Phone: [facility] 10-14-2023 06:53-0400 Diastolic blood pressure 66 mm[Hg] Jacqueline Metcalff 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 Work Phone: [facility] 10-14-2023 06:53-0400 Heart rate 98 /min Jacqueline Metcalff 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 Work Phone: [facility] 10-14-2023 06:53-0400 Respiratory rate 16 /min Jacqueline Valadez 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 Work Phone: [facility] 10-14-2023 06:53-0400 SaO2% (BldA) [Mass fraction] 77 % Jacqueline Valadez 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 Work Phone: [facility] 10-14-2023 06:53-0400 Systolic blood pressure 98 mm[Hg] Jacqueline Metcalff 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 Work Phone: [facility] 10-07-2023 08:23-0400 Diastolic blood pressure 82 mm[Hg] Tariq Barley 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 Work Phone (unformatted): [phone] [facility] 10-07-2023 08:23-0400 Systolic blood pressure 121 mm[Hg] Tariq Barley 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 Work Phone (unformatted): [phone] [facility] 09-16-2023 13:06-0400 Body mass index (BMI) [Ratio] 32.95 kg/m2 Karen Alcantara MD Work Phone: [facility] 09-16-2023 13:06-0400 Body weight 89.81 kg Karen Alcantara MD Work Phone: [facility] 09-16-2023 13:06-0400 Diastolic blood pressure 74 mm[Hg] Karen Alcantara MD Work Phone: [facility] 09-16-2023 13:06-0400 Heart rate 91 /min Karen Alcantara MD Work Phone: [facility] 09-16-2023 13:06-0400 Respiratory rate 16 /min Karen Alcantara MD Work Phone: [facility] 09-16-2023 13:06-0400 SaO2% (BldA) [Mass fraction] 97 % Karen Alcantara MD Work Phone: [facility] 09-16-2023 13:06-0400 Systolic blood pressure 118 mm[Hg] Karen Alcantara MD Work Phone: [facility] 09-02-2023 08:21-0400 Diastolic blood pressure 72 mm[Hg] Tariq Barley 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 Work Phone (unformatted): [phone] [facility] 09-02-2023 08:21-0400 Systolic blood pressure 102 mm[Hg] Tariq Brooks APRN.SOLAR PANEL TECHNICIAN Work Phone (unformatted): [phone] [facility] 06-22-2023 09:11-0500 Body height 165.1 cm Priyanka Smith MD Work Phone: [facility] 06-22-2023 09:11-0500 Body weight 93.62 kg Priyanka Smith MD Work Phone: [facility] 06-22-2023 09:11-0500 Diastolic blood pressure 78 mm[Hg] Priyanka Smith MD Work Phone: [facility] 06-22-2023 09:11-0500 Heart rate 72 /min Priyanka Smith MD Work Phone: [facility] 06-22-2023 09:11-0500 Respiratory rate 18 /min Priyanka Smith MD Work Phone: [facility] 06-22-2023 09:11-0500 Systolic blood pressure 118 mm[Hg] Priyanka Smith MD Work Phone: [facility] 01-15-2023 08:01-0400 Diastolic blood pressure 82 mm[Hg] John Mg MD Work Phone: [facility] 01-15-2023 08:01-0400 Heart rate 73 /min John Mg MD Work Phone: [facility] 01-15-2023 08:01-0400 Systolic blood pressure 119 mm[Hg] John Mg MD Work Phone: [facility] 01-12-2023 10:24-0400 Body height 161.3 cm Pacc 1 Work Phone: [facility] 01-12-2023 10:24-0400 Body temperature 98.4 [degF] Pacc 1 Work Phone: [facility] 01-12-2023 10:24-0400 Body weight 90.72 kg Pacc 1 Work Phone: [facility] 01-12-2023 10:24-0400 Diastolic blood pressure 77 mm[Hg] Pacc 1 Work Phone: [facility] 01-12-2023 10:24-0400 Heart rate 79 /min Pacc 1 Work Phone: [facility] 01-12-2023 10:24-0400 Respiratory rate 18 /min Pacc 1 Work Phone: [facility] 01-12-2023 10:24-0400 SaO2% (BldA) [Mass fraction] 97 % Pacc 1 Work Phone: [facility] 01-12-2023 10:24-0400 Systolic blood pressure 129 mm[Hg] Pacc 1 Work Phone: [facility] 12-22-2022 09:03-0400 Body weight 91.63 kg Priyanka Smith MD Work Phone: [facility] 12-22-2022 09:03-0400 Diastolic blood pressure 80 mm[Hg] Priyanka Smith MD Work Phone: [facility] 12-22-2022 09:03-0400 Heart rate 80 /min Priyanka Smith MD Work Phone: [facility] 12-22-2022 09:03-0400 Respiratory rate 16 /min Priyanka Smith MD Work Phone: [facility] 12-22-2022 09:03-0400 Systolic blood pressure 118 mm[Hg] Priyanka Smith MD Work Phone: [facility] 11-16-2022 09:40-0400 Body weight 92.53 kg Pulm Wstr Work Phone: [facility] 11-03-2022 10:56-0400 Body height 165.1 cm Mathew Yang Jr., MD Work Phone: [facility] 11-03-2022 10:56-0400 Body weight 92.53 kg Mathew Yang Jr., MD Work Phone: [facility] 08-20-2022 14:10-0400 Body weight 90.36 kg Priyanka Smith MD Work Phone: [facility] 08-20-2022 14:10-0400 Diastolic blood pressure 80 mm[Hg] Priyanka Smith MD Work Phone: [facility] 08-20-2022 14:10-0400 Heart rate 78 /min Priyanka Smith MD Work Phone: [facility] 08-20-2022 14:10-0400 Respiratory rate 16 /min Priyanka Smith MD Work Phone: [facility] 08-20-2022 14:10-0400 Systolic blood pressure 130 mm[Hg] Priyanka Smith MD Work Phone: [facility] 08-12-2022 18:29-0400 Body temperature 99.3 [degF] [facility] 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 Work Phone: [facility] 08-12-2022 18:29-0400 Body weight 89.63 kg [facility] 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 Work Phone: [facility] 08-12-2022 18:29-0400 Diastolic blood pressure 78 mm[Hg] [facility] 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 Work Phone: [facility] 08-12-2022 18:29-0400 Heart rate 101 /min Guillermo Pendjorge luis 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 Work Phone: [facility] 08-12-2022 18:29-0400 Respiratory rate 20 /min Guillermo Pendjorge luis 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 Work Phone: [facility] 08-12-2022 18:29-0400 SaO2% (BldA) [Mass fraction] 99 % Guillermo Martinezrosalina 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 Work Phone: [facility] 08-12-2022 18:29-0400 Systolic blood pressure 120 mm[Hg] Guillermo Mccormick 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 Work Phone: [facility] 08-11-2022 14:50-0400 Body height 165.1 cm Mathew Yang Jr., MD Work Phone: [facility] 08-11-2022 14:50-0400 Body weight 87.54 kg Mathew Yang Jr., MD Work Phone: [facility] 07-01-2022 18:02-0500 Body temperature 99.3 [degF] Krislyn Aberegg PA Work Phone: [facility] 07-01-2022 18:02-0500 Body weight 91.54 kg Krislyn Aberegg PA Work Phone: [facility] 07-01-2022 18:02-0500 Diastolic blood pressure 72 mm[Hg] Krislyn Aberegg PA Work Phone: [facility] 07-01-2022 18:02-0500 Heart rate 98 /min Krislyn Aberegg PA Work Phone: [facility] 07-01-2022 18:02-0500 Respiratory rate 18 /min Krislyn Aberegg PA Work Phone: [facility] 07-01-2022 18:02-0500 SaO2% (BldA) [Mass fraction] 98 % Krislyn Aberegg PA Work Phone: [facility] 07-01-2022 18:02-0500 Systolic blood pressure 114 mm[Hg] Krislyn Aberegg PA Work Phone: [facility] 06-22-2022 14:40-0500 Body weight 93.08 kg Priyanka Smith MD Work Phone: [facility] 06-22-2022 14:40-0500 Diastolic blood pressure 70 mm[Hg] Priyanka Smith MD Work Phone: [facility] 06-22-2022 14:40-0500 Heart rate 74 /min Priyanka Smith MD Work Phone: [facility] 06-22-2022 14:40-0500 Respiratory rate 16 /min Priyanka Smith MD Work Phone: [facility] 06-22-2022 14:40-0500 Systolic blood pressure 118 mm[Hg] Priyanka Smith MD Work Phone: [facility] 05-22-2022 14:59-0500 Diastolic blood pressure 85 mm[Hg] Proc Shared Work Phone: [facility] 05-22-2022 14:59-0500 Systolic blood pressure 127 mm[Hg] Proc Shared Work Phone: [facility] 04-17-2022 14:33-0500 Body weight 92.53 kg Karen Alcantara MD Work Phone: [facility] 04-17-2022 14:33-0500 Diastolic blood pressure 72 mm[Hg] Karen Alcantara MD Work Phone: [facility] 04-17-2022 14:33-0500 Heart rate 86 /min Karen Alcantara MD Work Phone: [facility] 04-17-2022 14:33-0500 SaO2% (BldA) [Mass fraction] 99 % Karen Alcantara MD Work Phone: [facility] 04-17-2022 14:33-0500 Systolic blood pressure 133 mm[Hg] Karen Alcantara MD Work Phone: [facility] 04-02-2022 08:22-0500 Body temperature 97.59 [degF] Genie Olson APRN.SOLAR PANEL TECHNICIAN Work Phone: [facility] 04-02-2022 08:22-0500 Body weight 92.99 kg Genie Olson APRN.SOLAR PANEL TECHNICIAN Work Phone: [facility] 04-02-2022 08:22-0500 Diastolic blood pressure 72 mm[Hg] Genie Olson APRN.SOLAR PANEL TECHNICIAN Work Phone: [facility] 04-02-2022 08:22-0500 Heart rate 79 /min Genie Olson APRN.SOLAR PANEL TECHNICIAN Work Phone: [facility] 04-02-2022 08:22-0500 Respiratory rate 18 /min Genie Olson APRN.SOLAR PANEL TECHNICIAN Work Phone: [facility] 04-02-2022 08:22-0500 SaO2% (BldA) [Mass fraction] 99 % Genie Allyson 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 Work Phone: [facility] 04-02-2022 08:22-0500 Systolic blood pressure 110 mm[Hg] Genie Olson APRN.SOLAR PANEL TECHNICIAN Work Phone: [facility] 03-16-2022 09:23-0400 Body weight 91.63 kg John Mg MD Work Phone: [facility] 03-16-2022 09:23-0400 Diastolic blood pressure 74 mm[Hg] John Mg MD Work Phone: [facility] 03-16-2022 09:23-0400 Systolic blood pressure 108 mm[Hg] John Mg MD Work Phone: [facility] 02-16-2022 09:36-0400 Body weight 89.36 kg Karen Alcantara MD Work Phone: [facility] 02-16-2022 09:36-0400 Diastolic blood pressure 62 mm[Hg] Karen Alcantara MD Work Phone: [facility] 02-16-2022 09:36-0400 Heart rate 78 /min Karen Alcantara MD Work Phone: [facility] 02-16-2022 09:36-0400 Respiratory rate 17 /min Karen Alcantara MD Work Phone: [facility] 02-16-2022 09:36-0400 SaO2% (BldA) [Mass fraction] 97 % Karen Alcantara MD Work Phone: [facility] 02-16-2022 09:36-0400 Systolic blood pressure 118 mm[Hg] Karen Alcantara MD Work Phone: [facility] 12-19-2021 09:18-0400 Body weight 85 kg Priyanka Smith MD Work Phone: [facility] 12-19-2021 09:18-0400 Diastolic blood pressure 68 mm[Hg] Priyanka Smith MD Work Phone: [facility] 12-19-2021 09:18-0400 Heart rate 78 /min Priyanka Smith MD Work Phone: [facility] 12-19-2021 09:18-0400 Respiratory rate 16 /min Priyanka Smith MD Work Phone: [facility] 12-19-2021 09:18-0400 Systolic blood pressure 110 mm[Hg] Priyanka Smith MD Work Phone: [facility] 11-26-2021 09:40-0400 Body height 166.4 cm Charis Plotts RIPSAWYER.CNM Work Phone: [facility] 11-26-2021 09:40-0400 Body weight 83.92 kg Charis Plotts RIPSAWYER.CNM Work Phone: [facility] 11-26-2021 09:40-0400 Diastolic blood pressure 64 mm[Hg] Charis Plotts RIPSAWYER.CNM Work Phone: [facility] 11-26-2021 09:40-0400 Systolic blood pressure 108 mm[Hg] Charis Plotts RIPSAWYER.CNM Work Phone: [facility] 11-05-2021 09:30-0400 Body weight 82.1 kg Cleo Maynard RIPSAWYER.CNM Work Phone: [facility] 11-05-2021 09:30-0400 Diastolic blood pressure 70 mm[Hg] Cleo Maynard RIPSAWYER.CNM Work Phone: [facility] 11-05-2021 09:30-0400 Systolic blood pressure 112 mm[Hg] Cleo Maynard RIPSAWYER.CNM Work Phone: [facility] 08-12-2021 13:46-0400 Body height 161.3 cm Sam Cuenca MD Work Phone: [facility] 08-12-2021 13:46-0400 Body weight 77.11 kg Sam Cuenca MD Work Phone: [facility] 08-12-2021 13:46-0400 Diastolic blood pressure 62 mm[Hg] Sam Cuenca MD Work Phone: [facility] 08-12-2021 13:46-0400 Heart rate 94 /min Sam Cuenca MD Work Phone: [facility] 08-12-2021 13:46-0400 SaO2% (BldA) [Mass fraction] 99 % Sam Cuenca MD Work Phone: [facility] 08-12-2021 13:46-0400 Systolic blood pressure 108 mm[Hg] Sam Cuenca MD Work Phone: [facility] 08-12-2021 13:41-0400 Body height 161.3 cm Respiratory Wstr Work Phone: [facility] 08-12-2021 13:41-0400 Body weight 77.11 kg Respiratory Wstr Work Phone: [facility] 08-12-2021 13:41-0400 Heart rate 94 /min Respiratory Wstr Work Phone: [facility] 08-12-2021 13:41-0400 Respiratory rate 14 /min Respiratory Wstr Work Phone: [facility] 08-12-2021 13:41-0400 SaO2% (BldA) [Mass fraction] 99 % Respiratory Wstr Work Phone: [facility] Encounters Encounter Date Encounter Type Care Provider Facility Start: 03-27-2025 End: 03-27-2025 ambulatory JASMYNE DAY Facility:[facility] Start: 03-02-2025 End: 03-02-2025 Patient encounter procedure Hilary EASLEY -[facility] Work Phone: Start: 03-02-2025 End: 03-02-2025 ambulatory Gonzalo Day Facility:[facility] Start: 03-01-2025 End: 03-01-2025 ambulatory GEMMA ROBERTS Facility:[facility] Start: 02-28-2025 End: 02-28-2025 ambulatory JASMYNE DAY Facility:[facility] Start: 02-27-2025 End: 02-27-2025 ambulatory MATHEW YANG JR Facility:[facility] Start: 02-16-2025 Non-patient / Non-visit Aditya Monet nd DO -[facility] Start: 02-16-2025 End: 02-16-2025 Admission to same day surgery center Aditya Cota -Endoscopy Work Phone: Start: 02-16-2025 End: 02-16-[address] Priyanka Smith MD Work Phone: -Endoscopy Start: 02-15-2025 End: 02-15-2025 ambulatory LACY MCKEON Facility:[facility] Start: 02-08-2025 End: 02-08-2025 ambulatory WILEY BENITEZ Facility:[facility] Start: 02-06-2025 End: 02-06-2025 ambulatory BECCA M ADEOLA Facility:[facility] Start: 01-30-2025 End: 01-30-2025 Patient encounter procedure Jasmyne Day MD Work Phone: [facility] Comment on above: Vaginal bleeding (Pr imary Dx); Acute cystitis with hematuria; Iron deficiency anemia, unspecified iron deficiency anemia type; Encounter for follow-up examination after completed treatment for conditions other than malignant neoplasm Start: 01-30-2025 End: 01-30-2025 ambulatory JASMYNE DAY Facility:[facility] Start: 01-29-2025 End: 01-29-2025 ambulatory KAREN ALCANTARA Facility:[facility] Start: 01-29-2025 End: 01-29-2025 Subsequent hospital visit by physician [facility] (I-Stat) Work Phone: Cat Scan Comment on above: Interstitial pulmona ry disease (HCC) [J84.9] Start: 01-22-2025 End: 01-26-2025 Evaluation and management of inpatient Ina Del Toro DO Work Phone: [facility] Comment on above: Vaginal bleeding (Pr imary Dx); Post-menopausal bleeding; Stage 3a chronic kidney disease (HCC) Start: 01-21-2025 End: 01-22-2025 Emergency department patient visit Dr. Priyanka Smith MD Work Phone: -Emergency Department Work Phone: Start: 01-10-2025 End: 01-10-2025 Patient encounter procedure Jasmyne Day MD Work Phone: [facility] Comment on above: Orthostatic hypotens ion (Primary Dx); Dizziness; Parkinson's disease, unspecified whether dyskinesia present, unspecified whether manifestations fluctuate (HCC) Start: 01-10-2025 End: 01-10-2025 ambulatory JASMYNE DAY Facility:[facility] Start: 01-09-2025 End: 01-09-2025 Patient encounter procedure Mathew Yang MD Work Phone: Urology Comment on above: Kidney stone (Primar y Dx) Start: 01-09-2025 End: 01-09-2025 ambulatory MATHEW YANG JR Facility:[facility] Start: 12-29-2024 End: 12-29-2024 Patient encounter procedure Hilary Soto [facility] Work Phone: Start: 12-29-2024 End: 12-29-[address] Priyanka Smith MD Work Phone: -[facility] Start: 12-29-2024 End: 12-29-2024 ambulatory Hilary Soto Facility:[facility] Start: 12-27-2024 End: 12-27-2024 Office outpatient visit 25 minutes Peyton Diaz APRN.SOLAR PANEL TECHNICIAN Work Phone: [facility] Comment on above: Orthostatic hypotens ion (Primary Dx); Parkinson's disease, unspecified whether dyskinesia present, unspecified whether manifestations fluctuate (HCC) Start: 12-27-2024 End: 12-27-2024 ambulatory PEYTON DIAZ Facility:[facility] Start: 12-22-2024 Non-patient / Non-visit Aditya Monet nd, DO -[facility] Start: 12-22-2024 End: 12-22-2024 Admission to same day surgery center Aditya Cota DO -Endoscopy Work Phone: Start: 12-22-2024 End: 12-22-[address] Priyanka Smith MD Work Phone: -Endoscopy Start: 12-20-2024 End: 12-20-2024 ambulatory MATHEW YANG JR Facility:[facility] Start: 12-13-2024 End: 12-13-2024 Patient encounter procedure Cyndi Naik 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 Work Phone: [facility] [place] Comment on above: Orthostatic hypotens ion (Primary Dx); Parkinson's disease, unspecified whether dyskinesia present, unspecified whether manifestations fluctuate (HCC) Start: 12-13-2024 End: 12-13-2024 ambulatory CYNDI BAHLOGWILI Facility:[facility] Start: 12-06-2024 End: 12-06-2024 Patient encounter procedure Charis Lopez RIPSAWYER.CNM Work Phone: OB/Gynecology Comment on above: Encounter for gyneco logical examination (general) (routine) without abnormal findings (Primary Dx); Encounter for screening for human papillomavirus (HPV); Pap smear for cervical cancer screening; Encounter for screening mammogram for breast cancer; Genital warts Start: 12-06-2024 End: 12-06-2024 Patient encounter status Charis Lopez RIPSAWYER.CNM Work Phone: [facility] Start: 12-06-2024 End: 12-06-2024 ambulatory CHARIS LOPEZ Facility:[facility] Start: 12-06-2024 Encounter for gynecological examination (general) (routine) without abnormal findings CHARIS LOPEZ [facility] Start: 11-29-2024 End: 11-29-2024 Patient encounter procedure Jasmyne Day MD Work Phone: [facility] [place] Comment on above: Parkinson's disease, unspecified whether dyskinesia present, unspecified whether manifestations fluctuate (HCC) (Primary Dx); Orthostatic hypotension; Stage 3 chronic kidney disease, unspecified whether stage 3a or 3b CKD (HCC) Start: 11-29-2024 End: 11-29-2024 ambulatory JASMYNE DAY Facility:[facility] Start: 11-16-2024 End: 11-16-2024 Patient encounter procedure Gemma Roberts APRN.SOLAR PANEL TECHNICIAN Work Phone: Neurology Comment on above: Constipation, unspec ified constipation type (Primary Dx); Parkinsonism, unspecified Parkinsonism type (HCC); REM sleep behavior disorder; Restless legs syndrome; Orthostatic hypotension Start: 11-16-2024 End: 11-16-2024 ambulatory GEMMA ROBERTS Facility:[facility] Start: 11-14-2024 End: 11-14-2024 Telephone encounter German Grubbs APRN.SOLAR PANEL TECHNICIAN Work Phone: URO/Gynecology Comment on above: Patient Question; Re fill Request Start: 11-09-2024 End: 11-14-2024 ambulatory German Grubbs APRN.SOLAR PANEL TECHNICIAN Work Phone: [facility]/Gynecology Comment on above: Atarax Start: 11-08-2024 End: 11-08-2024 Patient encounter procedure Hilary EASLEY -[facility] Work Phone: Start: 11-08-2024 End: 11-08-[address] Priyanka Smith MD Work Phone: [facility] Work Phone: Start: 10-31-2024 End: 10-31-2024 Patient encounter procedure German Grubbs APRN.SOLAR PANEL TECHNICIAN Work Phone: U[facility]/Gynecology Comment on above: Chronic interstitial cystitis (Primary Dx); Genitourinary syndrome of menopause Start: 10-31-2024 End: 10-31-2024 ambulatory Leandro Vargas PT Work Phone: [facility] Comment on above: Fall in home, initia l encounter (Primary Dx); At high risk for falls Start: 10-26-2024 End: 10-26-2024 Patient encounter procedure Pulm [facility] Work Phone: PUL[facility] Comment on above: Interstitial pulmona ry disease (HCC) (Primary Dx); NSIP (nonspecific interstitial pneumonia) (HCC); Bronchiectasis without complication (HCC); Stage 3b chronic kidney disease (HCC); On Cellcept therapy Start: 10-26-2024 End: 10-26-2024 ambulatory Pul[facility] Work Phone: PUL[facility] Comment on above: Spirometry Start: 10-17-2024 End: 10-17-2024 ambulatory Eufemia Anglin PT, DPT [facility] Comment on above: Fall in home, initia l encounter (Primary Dx); At high risk for falls Refill Request Start: 10-16-2024 End: 10-17-2024 ambulatory Bogdan Roberts MD Work Phone: Neurology Comment on above: Sinemet & Carbidopa Start: 10-11-2024 End: 10-11-2024 Patient encounter procedure Hilary EASLEY -[facility] Work Phone: Start: 10-11-2024 End: 10-11-[address] Priyanka Smith MD Work Phone: [facility] Work Phone: Start: 10-10-2024 End: 10-10-2024 ambulatory Leandro Vargas PT Work Phone: [facility] Comment on above: At high risk for fal ls (Primary Dx) Start: 10-02-2024 End: 10-02-2024 ambulatory Leandro Vargas PT Work Phone: [facility] Comment on above: At high risk for fal ls (Primary Dx) Start: 09-28-2024 End: 09-28-2024 ambulatory PEPITO STEVE Facility:[facility] Start: 09-28-2024 End: 09-28-2024 ambulatory Leandro Vargas PT Work Phone: [facility] Comment on above: Fall in home, initia l encounter (Primary Dx); At high risk for falls; Overactive bladder Start: 09-26-2024 End: 11-26-2024 Follow-up encounter Becca Mir 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 Work Phone: Pulmonary Medicine Start: 09-23-2024 End: 09-23-2024 ambulatory BECCA MIR Facility:[facility] Start: 09-22-2024 End: 09-22-2024 Office outpatient visit 40 minutes Rika Adam APRN.SOLAR PANEL TECHNICIAN Work Phone: Neurology Comment on above: Parkinsonism, unspec ified Parkinsonism type (HCC) (Primary Dx); Nausea Start: 09-22-2024 End: 09-22-2024 ambulatory RIKA ADAM Facility:[facility] Start: 09-20-2024 End: 09-22-2024 Refill Becca Mir APRN.SOLAR PANEL TECHNICIAN Work Phone: Pulmonary Medicine Comment on above: Refill Request Start: 09-11-2024 End: 09-11-2024 Follow-up encounter Jasmyne Day MD Work Phone: [facility] [place] Comment on above: Results Start: 09-11-2024 ambulatory JASMYNE DAY Facility:[facility] Start: 09-11-2024 End: 09-11-2024 Subsequent hospital visit by physician X[facility] [place] Work Phone: Radiology Comment on above: Fall in home, initia l encounter [W19.XXXA, Y92.009] Start: 09-11-2024 End: 09-11-2024 Patient encounter procedure Jasmyne Day MD Work Phone: [facility] [place] Comment on above: Fall in home, initia l encounter (Primary Dx); Acute right-sided low back pain without sciatica; Acute hip pain, right; Injury of head, initial encounter; Orbital pain, left; At high risk for falls Start: 09-11-2024 End: 09-11-2024 ambulatory JASMYNE DAY Facility:[facility] Start: 09-01-2024 End: 09-01-2024 Follow-up encounter Juwan Land APRN.SOLAR PANEL TECHNICIAN Work Phone: [facility] [place] Comment on above: Results Start: 08-31-2024 End: 08-31-2024 Office outpatient visit 25 minutes Priyanka Smith MD Work Phone: [facility] [place] Comment on above: Syncope, unspecified syncope type (Primary Dx); Hypothyroidism, unspecified type Start: 08-31-2024 End: 08-31-2024 ambulatory PRIYANKA SMITH Facility:[facility] Start: 08-31-2024 End: 08-31-2024 Patient encounter procedure Latha Cuevas MD Work Phone: Endocrinology Comment on above: Lightheadedness (Karyn michele Dx) Start: 08-31-2024 End: 08-31-2024 ambulatory LATHA CUEVAS Facility:[facility] Start: 08-22-2024 End: 10-22-2024 Follow-up encounter Candy Santana 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 Work Phone: OB/Gynecology Start: 08-21-2024 End: 08-21-2024 ambulatory CHARIS LOPEZ Facility:[facility] Start: 08-21-2024 End: 08-21-2024 Subsequent hospital visit by physician Screen Mammo [facility] Wstr Mammogram Comment on above: Encounter for screen ing mammogram for breast cancer [Z12.31] Start: 08-18-2024 End: 10-18-2024 Follow-up encounter Maira Chen 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 Work Phone: Urology Start: 08-18-2024 End: 08-18-2024 Telephone encounter Maira Chen 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 Work Phone: Urology Comment on above: Results Start: 08-17-2024 End: 08-17-2024 ambulatory MAIRA CHEN Facility:[facility] Start: 08-17-2024 End: 10-17-2024 Follow-up encounter Maira Chen 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 Work Phone: Urology [facility] Start: 08-15-2024 End: 08-16-2024 ambulatory Bogdan Roberts MD Work Phone: Neurology Comment on above: Sinemet Start: 08-14-2024 End: 08-14-2024 ambulatory MAIRA CHEN Facility:[facility] Start: 08-14-2024 End: 08-14-2024 Subsequent hospital visit by physician [facility] W[facility] Mob 1 Work Phone: Radiology Comment on above: Gross hematuria [R31 .0] Start: 08-11-2024 End: 08-11-2024 Follow-up encounter Maira Chen APRN.SOLAR PANEL TECHNICIAN Work Phone: Urology Start: 08-09-2024 End: 08-09-2024 ambulatory MAIRA CHEN Facility:[facility] Start: 08-09-2024 End: 08-09-2024 Office outpatient visit 15 minutes Maira Chen 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 Work Phone: Urology Comment on above: Gross hematuria (Karyn michele Dx); Nephrolithiasis Start: 08-08-2024 End: 08-08-2024 Telephone encounter Priyanka Smith MD Work Phone: [facility] [place] Start: 08-07-2024 End: 08-07-2024 Telephone encounter Wiley Benitez MD Work Phone: [facility] Start: 08-04-2024 End: 08-04-2024 Telemedicine consultation with patient German Grubbs HAILE.SOLAR PANEL TECHNICIAN Work Phone: URO/Gynecology Start: 08-04-2024 End: 08-17-2024 ambulatory German Grubbs APRN.SOLAR PANEL TECHNICIAN Work Phone: URO/Gynecology Comment on above: Chronic interstitial cystitis (Primary Dx); Gross hematuria Bleeding Start: 08-03-2024 End: 08-03-2024 ambulatory BOGDAN ROBERTS Facility:[facility] Start: 08-03-2024 End: 08-03-2024 Office outpatient visit 25 minutes Bogdan Roberts MD Work Phone: Neurology Comment on above: Parkinsonism, unspec ified Parkinsonism type (HCC) (Primary Dx); Neuroleptic-induced tardive dyskinesia; Stage 3b chronic kidney disease (HCC) Start: 08-01-2024 End: 08-08-2024 Follow-up encounter Juwan Land APRN.SOLAR PANEL TECHNICIAN Work Phone: [facility] [place] Start: 07-31-2024 End: 07-31-2024 ambulatory Priyanka Smith MD Work Phone: [facility] [place] Comment on above: Bilateral arm pain Start: 07-31-2024 End: 07-31-2024 Office outpatient visit 25 minutes Juwan Land APRN.CNP Work Phone: [facility] [place] Comment on above: Myalgia (Primary Dx) ; Costochondritis; Pain in both upper arms; Orthostatic hypotension Start: 07-19-2024 End: 07-19-2024 ambulatory PEPITO STEVE Facility:[facility] Start: 07-10-2024 End: 07-10-2024 Patient encounter procedure Jacqueline Valadez APRN.SOLAR PANEL TECHNICIAN Work Phone: [facility] [place] Comment on above: Medicare annual well ness visit, subsequent (Primary Dx); Hypothyroidism, unspecified type; Stage 3a chronic kidney disease (HCC); History of tremor; Post-menopausal Start: 07-10-2024 End: 07-10-2024 ambulatory JACQUELINE VALADEZ Facility:[facility] Start: 07-07-2024 End: 07-07-2024 Patient encounter procedure Hilary Soto [facility] Gastroenterology Work Phone: Start: 07-07-2024 End: 07-07-2024 ambulatory Hilary Soto Facility:[facility] Start: 07-04-2024 End: 07-04-2024 ambulatory PRIYANKA SMITH Facility:[facility] Start: 06-26-2024 End: 06-26-2024 Patient encounter procedure Raul Juan MD Work Phone: Orthopaedics Comment on above: Pain of right thumb (Primary Dx) Start: 06-26-2024 End: 06-26-2024 ambulatory RAUL JUAN Facility:[facility] Start: 06-26-2024 End: 06-26-2024 Subsequent hospital visit by physician Griselda [facility] [place] Jasmine Work Phone: Radiology Comment on above: Right hand pain [M79 .641] Start: 06-20-2024 End: 06-20-2024 E-mail encounter from caregiver Becca Mir APRN.CNP Work Phone: Pulmonary Medicine Start: 06-20-2024 End: 06-20-2024 ambulatory Becca Mir 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 Work Phone: Pulmonary Medicine Comment on above: update Refill Request Start: 06-20-2024 End: 06-20-2024 Office outpatient visit 15 minutes Becca Mir 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 Work Phone: Pulmonary Medicine Comment on above: NSIP (nonspecific in terstitial pneumonitis) ([facility]) (Primary Dx); 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; CKD stage 3b, GFR 30-44 ml/min (HCC) Start: 06-14-2024 End: 06-14-2024 Orders Only Raul Juan MD Work Phone: Orthopaedics Comment on above: Right hand pain (Karyn michele Dx) Start: 06-12-2024 End: 06-12-2024 ambulatory KAREN ALCANTARA Facility:[facility] Start: 06-12-2024 End: 06-12-2024 Subsequent hospital visit by physician [facility] W[facility] (I-Stat) Work Phone: Cat Scan Comment on above: 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) ([facility]) [J84.89] Start: 06-09-2024 End: 06-09-2024 ambulatory Wiley Benitez MD Work Phone: URO/Gynecology Comment on above: Chronic interstitial cystitis (Primary Dx) Start: 06-09-2024 End: 06-09-2024 Telemedicine consultation with patient Wiley Benitez MD Work Phone: URO/Gynecology Start: 06-06-2024 ambulatory Aditya Cota Facility :[facility] Start: 06-06-2024 End: 06-06-2024 ambulatory [facility] Facility:[facility] Start: 05-31-2024 End: 05-31-2024 Telephone encounter Jacqueline Valadez APRN.SOLAR PANEL TECHNICIAN Work Phone: [facility] Comment on above: Results (Knee Xray ) Start: 05-30-2024 End: 05-30-2024 ambulatory GEMMA ROBERTS Facility:[facility] Start: 05-30-2024 End: 05-30-2024 Patient encounter procedure Gemma Roberts 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 Work Phone: Neurology Comment on above: Parkinsonism, unspec ified Parkinsonism type (HCC) (Primary Dx); Dyskinesia, tardive Start: 05-26-2024 End: 05-26-2024 ambulatory PRIYANKA Mckay EVANSEMDEN Facility:[facility] Start: 05-24-2024 End: 05-24-2024 ambulatory [facility] Facility:[facility] Start: 05-24-2024 End: 05-24-2024 Subsequent hospital visit by physician Griselda [facility] [place] Work Phone: Radiology Comment on above: Acute pain of both k nees [M25.561, M25.562] Start: 05-24-2024 End: 05-24-2024 Patient encounter procedure Jacqueline Teaoanh BE.SOLAR PANEL TECHNICIAN Work Phone: Family Medicine [place] Comment on above: Acute pain of both k nees (Primary Dx) Start: 05-24-2024 End: 05-24-2024 ambulatory JACQUELINESHOAIB FREITAS [facility] Facility:[facility] Start: 05-23-2024 End: 05-23-2024 ambulatory Lab/[place] [facility] Work Phone: Hematology/Oncology Comment on above: Stage 3a chronic kid ermias disease (HCC) (Primary Dx) Start: 05-22-2024 End: 05-23-2024 Refill Karen Alcantara MD Work Phone: Pulmonary Medicine Comment on above: Refill Request Amitriptyline Start: 05-18-2024 End: 05-18-2024 ambulatory LATHA CUEVAS Facility:[facility] Start: 05-18-2024 End: 05-18-2024 Patient encounter procedure Latha Cuevas MD Work Phone: Endocrinology Comment on above: ACTH elevation (Prim abilio Dx) Start: 05-11-2024 End: 05-11-2024 ambulatory LATHA CUEVAS Facility:[facility] Start: 05-05-2024 End: 05-05-2024 ambulatory LATHA CUEVAS Facility:[facility] Start: 05-05-2024 End: 05-05-2024 Patient encounter procedure Latha Cuevas MD Work Phone: Endocrinology Comment on above: 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); 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 Start: 04-17-2024 End: 04-17-2024 Telemedicine consultation with patient Wiley Benitez MD Work Phone: URO/Gynecology Start: 04-17-2024 End: 04-17-2024 ambulatory Wiley Benitez MD Work Phone: URO/Gynecology Comment on above: Chronic interstitial cystitis (Primary Dx) Start: 04-17-2024 End: 04-17-2024 ambulatory KAREN ALCANTARA Facility:[facility] Start: 04-17-2024 End: 04-17-2024 Patient encounter procedure Karen Alcantara MD Work Phone: Pulmonary Medicine Comment on above: 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); High risk medication use; Nephrolithiasis; CKD (chronic kidney disease) stage 4, GFR 15-29 ml/min (HCC) Start: 04-14-2024 End: 04-14-2024 Telephone encounter Jonathan Monterroso APRN.SOLAR PANEL TECHNICIAN Work Phone: Family Medicine [place] Comment on above: Results Start: 04-10-2024 End: 04-10-2024 Patient encounter procedure Jonathan Monterroso APRN.SOLAR PANEL TECHNICIAN Work Phone: [facility] [place] Comment on above: Urinary tract infect ion with hematuria, site unspecified (Primary Dx) Start: 04-10-2024 End: 04-10-2024 ambulatory JONATHAN MONTERROSO Facility:[facility] Start: 04-10-2024 End: 04-10-2024 Telephone encounter Priyanka Smith MD Work Phone: [facility] Medicine [place] Comment on above: Appointment; Patient Update Start: 04-07-2024 End: 04-07-2024 Patient encounter procedure Phong Blake MD Work Phone: [facility] Urology [facility] Comment on above: Calculus, ureter [N2 0.1] (Primary Dx) Start: 04-07-2024 End: 04-07-2024 ambulatory PHONG BLAKE [facility] Start: 2024 End: 2024 ambulatory Hilary Charles Facility:[facility] Start: 04-05-2024 End: 04-05-2024 ambulatory PRIYANKA SMITH Facility:[facility] Start: 04-03-2024 End: 2024 Telephone encounter Aishwarya Fraire MD Work Phone: [facility] Comment on above: Forms/questionnaires Start: 03-24-2024 End: 03-27-2024 Telephone encounter Phong Blake MD [facility] Comment on above: Appointment Start: 03-23-2024 End: 03-23-2024 ambulatory KATHERINE BOWEN [facility] Start: 03-23-2024 End: 03-23-2024 Subsequent hospital visit by physician Katherine Bowen MD Work Phone: [facility] Comment on above: Hydronephrosis with urinary obstruction due to ureteral calculus (Primary Dx) Start: 03-22-2024 End: 11-30-2024 Telephone encounter Priyanka Smith MD Work Phone: [facility] [place] Comment on above: Consult Start: 03-21-2024 End: 03-21-2024 Telephone encounter Gemma Roberts APRN.SOLAR PANEL TECHNICIAN Work Phone: Neurological [place] Comment on above: Forms (Skin Biopsy - [employer]) Start: 03-17-2024 End: 03-17-2024 ambulatory Karen Alcantara MD Work Phone: Pulmonary Medicine Comment on above: Prednisone Start: 03-16-2024 End: 03-16-2024 Patient encounter procedure Priyanka Smith MD Work Phone: [facility] [place] Comment on above: Hospital discharge f ollow-up (Primary Dx); Need for vaccination; Kidney infection; Orthostatic hypotension; Acquired hypothyroidism; ILD (interstitial lung disease) (HCC) Start: 03-16-2024 End: 03-16-2024 Office outpatient visit 40 minutes Gemma Roberts APRN.SOLAR PANEL TECHNICIAN Work Phone: Neurology Comment on above: Parkinsonism, unspec ified Parkinsonism type (HCC) (Primary Dx); Dyskinesia, tardive Start: 03-15-2024 End: 03-16-2024 Telephone encounter Katherine Bowen MD Work Phone: [facility] Clinical Communication Comment on above: Procedure Start: 03-07-2024 End: 03-07-2024 Telephone encounter Cecilia Barney PA-C Work Phone: [facility] Comment on above: Hospital Follow-up Start: 03-06-2024 End: 03-06-2024 Telephone encounter Cecilia Barney PA-C Work Phone: [facility] Start: 03-06-2024 End: 03-06-2024 ambulatory [facility] Start: 03-04-2024 End: 03-09-2024 Evaluation and management of inpatient Noel Contreras MD Work Phone: [facility] Surgical Progressive Care Unit PCU H6 Comment on above: Pyelonephritis (Prim abilio Dx); Syncope and collapse; Hydronephrosis with urinary obstruction due to ureteral calculus; Esophageal dysmotility Start: 03-03-2024 End: 03-28-2024 ambulatory Jacqueline Valadez APRN.SOLAR PANEL TECHNICIAN Work Phone: [facility] Medicine [place] Comment on above: Blood pressure Start: 03-03-2024 End: 03-03-2024 Subsequent hospital visit by physician Griselda [facility] [place] Work Phone: Radiology Comment on above: Rib pain [R07.81] Start: 03-03-2024 End: 03-03-2024 Patient encounter procedure Wiley Benitez MD Work Phone: URO/Gynecology Comment on above: Chronic interstitial cystitis (Primary Dx); Dizziness Start: 03-01-2024 End: 03-03-2024 ambulatory Bogdan Roberts MD Work Phone: Neurology Comment on above: Reglan Start: 03-01-2024 End: 03-01-2024 Patient encounter procedure Jacqueline Valadez APRN.SOLAR PANEL TECHNICIAN Work Phone: [facility] Comment on above: Fall, initial encoun ter (Primary Dx); Hypotension, unspecified hypotension type; Rib pain Start: 02-02-2024 End: 02-02-2024 Telephone encounter Jacqueline Valadez APRN.SOLAR PANEL TECHNICIAN Work Phone: [facility] Comment on above: Results (Labs ) Start: [...] End: 12-28-2023 Patient encounter procedure Jacqueline Valadez APRN.SOLAR PANEL TECHNICIAN Work Phone: [facility] Comment on above: Tremor (Primary Dx); [...] encounter procedure Wiley Benitez MD Work Phone: [employer] [place] Comment on above: Overactive bladder ( Primary Dx); Urinary frequency Start: 11-29-2023 End: 11-29-2023 Patient encounter procedure Charis Lopez RIPSAWYER.CNM Work Phone: OB/Gynecology Comment on above: Encounter for gyneco logical examination (general) (routine) without abnormal findings (Primary Dx); Pap smear for cervical cancer screening; Encounter for screening mammogram for breast cancer Start: 11-29-2023 End: 11-29-2023 Patient encounter status Charis Lopez RIPSAWYER.CNM Work Phone: [facility] Start: 11-29-2023 End: 11-29-2023 Subsequent hospital visit by physician Griselda [facility] [employer] Work Phone: Radiology Comment on above: Kidney stone [N20.0] Start: 11-22-2023 Telephone encounter Mathew Yang MD Work Phone: [place] [facility] [facility] Comment on above: Appointment Start: 11-22-2023 End: 11-22-2023 ambulatory MATHEW YANG JR Facility:[facility] Start: 11-12-2023 Telephone encounter Wiley Benitez MD Work Phone: [employer] [place] [facility] Comment on above: Fuse [employer] - O ther Start: 11-10-2023 Telephone encounter Wiley Benitez MD Work Phone: [facility] Comment on above: Insurance Authorizat ion (Prior Auth Denied: Appeal Requested) Start: 11-09-2023 End: 11-09-2023 Patient encounter procedure Mathew Yang MD Work Phone: Urology Comment on above: Kidney stone (Primar y Dx) Start: 11-04-2023 End: 11-04-2023 Subsequent hospital visit by physician Griselda [facility] [place] Work Phone: Radiology Comment on above: Kidney stone [N20.0] Start: 11-02-2023 Telephone encounter Wiley Benitez MD Work Phone: [facility] Comment on above: Insurance Authorizat ion (Prior Auth Delayed Additional Information Needed Requested) Start: 11-02-2023 End: 11-02-2023 Subsequent hospital visit by physician [facility] Wstr (I-Stat) Work Phone: Cat Scan Start: 10-20-2023 Telephone encounter Wiley Benitez MD Work Phone: [employer] [place] [facility] Comment on above: Care Coordination (B otox) Start: 10-14-2023 ambulatory Jacqueline Valadez APRN.SOLAR PANEL TECHNICIAN Work Phone: Family Medicine [place] Start: 10-14-2023 End: 10-14-2023 Patient encounter procedure Jacqueline Valadez APRN.SOLAR PANEL TECHNICIAN Work Phone: Family Medicine [place] Comment on above: Tremor (Primary Dx) Consult to Dr Miller Start: 10-07-2023 End: 10-07-2023 Patient encounter procedure Tariq Brooks APRN.SOLAR PANEL TECHNICIAN Work Phone (unformatted): [phone] [employer] [place] [employer] Comment on above: Overactive bladder ( Primary Dx); Vulvar burning; Vaginal atrophy Start: 09-16-2023 End: 09-16-2023 Patient encounter procedure Karen Alcantara MD Work Phone: Pulmonary Medicine Comment on above: NSIP (nonspecific in terstitial pneumonitis) ([facility]) (Primary Dx); Current chronic use of systemic steroids; longterm current use of immunosuppressive drug Start: 09-09-2023 E-mail encounter sallie m caregiver Tariq Brooks APRN.SOLAR PANEL TECHNICIAN Work Phone (unformatted): [phone] [employer] [place] [employer] Start: 09-09-2023 Follow-up encounter Tariq beverly APRN.SOLAR PANEL TECHNICIAN Work Phone (unformatted): [phone] [employer] [place] [employer] Comment on above: Follow Up Start: 09-09-2023 End: 09-09-2023 ambulatory Tariq Brooks APRN.SOLAR PANEL TECHNICIAN Work Phone (unformatted): [phone] [employer] [place] [employer] Comment on above: Urinary frequency (P rimary Dx); Vaginal burning Start: 09-09-2023 End: 09-09-2023 Telemedicine consultation with patient Tariq Brooks HAILE.SOLAR PANEL TECHNICIAN Work Phone (unformatted): [phone] [employer] [place] [employer] Start: 09-02-2023 End: 09-02-2023 Patient encounter procedure Tariq Brooks 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 Work Phone (unformatted): [phone] [employer] [place] [employer] Comment on above: Overactive bladder ( Primary Dx); Urinary frequency; Dysuria; Neurostimulator device in situ Start: 09-01-2023 Refill Charis oro APRN.MARÍA Work Phone: OB/Gynecology Comment on above: Refill Request Start: 08-19-2023 Documentation procedure Mammog ruthie Coordinator [facility] Start: 08-19-2023 Letter encounter Mammography Coordinator [facility] Department Start: 08-18-2023 End: 08-18-2023 Subsequent hospital visit by physician Screen Mammo [facility] Wstr Mammogram Comment on above: Encounter for screen ing mammogram for malignant neoplasm of breast [Z12.31] Start: 08-09-2023 ambulatory Tariq Brooks 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 Work Phone (unformatted): [phone] [employer] [place] [employer] Comment on above: Interstim Refill Request Start: 08-06-2023 Telephone encounter Charis talbot APRN.MARÍA Work Phone: OB/Gynecology Comment on above: Orders (Mammogram) Start: 06-22-2023 End: 06-22-2023 Patient encounter procedure Priyanka Smith MD Work Phone: [facility] Comment on above: Medicare annual well ness visit, initial (Primary Dx); Hypothyroidism, unspecified type; ILD (interstitial lung disease) (HCC); Low sodium levels; OAB (overactive bladder); Encounter for screening mammogram for malignant neoplasm of breast; Stage 3a chronic kidney disease (HCC); Obesity, Class I, BMI 30-34.9 Start: 03-09-2023 E-mail encounter fro m caregiver Tariq Cecilia BE.SOLAR PANEL TECHNICIAN Work Phone (unformatted): [phone] [facility] [place] [facility] Start: 03-09-2023 Follow-up encounter Tariq Wood siria 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 Work Phone (unformatted): [phone] Urogynecology Comment on above: Follow Up Start: 03-01-2023 End: 03-01-2023 Nursing evaluation of patient and report Mi Nurse Work Phone: [facility] Comment on above: Need for vaccination (Primary Dx) Start: 02-25-2023 End: 02-25-2023 Patient encounter procedure Tariq Brooks 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 Work Phone (unformatted): [phone] [employer] [place] [facility] Comment on above: Post-operative state (Primary Dx); Urinary frequency Start: 02-24-2023 End: 02-24-2023 ambulatory Immunization Clinic Nurse [place] Work Phone: [facility] Start: 02-08-2023 Refill Karen Alcantara MD Work Phone: Pulmonary Medicine Comment on above: Refill Request Start: 01-28-2023 End: 01-28-2023 [facility] Facility:[facility] Start: 01-15-2023 End: 01-15-2023 Patient encounter procedure John Mg MD Work Phone: [employer] [place] [facility] Comment on above: Preoperative examina tion (Primary Dx); OAB (overactive bladder); Urge urinary incontinence; Urinary frequency; Urinary urgency Start: 01-15-2023 End: 01-15-2023 Preprocedural examination done John Mg MD Work Phone: [facility] Start: 01-12-2023 End: 01-12-2023 [facility] Facility:[facility] Start: 01-12-2023 Encounter for other preprocedural examination MATHEW YANG JR [facility] Start: 01-12-2023 End: 01-12-2023 Admission to [place] [id number] Work Phone: [facility] Start: 01-12-2023 End: 01-12-2023 [place] [address] Work Phone: Pre Anesthesia Comment on above: Preoperative examina tion (Primary Dx); NSIP (nonspecific interstitial pneumonitis) (HCC); Esophageal dysmotility; Acquired hypothyroidism; Thymoma, malignant (HCC); Current chronic use of systemic steroids; Stage 3a chronic kidney disease (HCC) Start: 01-12-2023 End: 01-12-2023 Preprocedural examination done [place] [id number] Work Phone: [facility] Work Phone: Start: 01-02-2023 ambulatory John swenson MD Work Phone: [employer] [facility] Comment on above: Metronidazole sympto m diary Start: 12-22-2022 End: 12-22-2022 Patient encounter procedure Priyanka Smith MD Work Phone: [facility] [place] Comment on above: Hypothyroidism, unsp ecified type (Primary Dx); Brad esophagitis (HCC); Epigastric pain; Esophageal dysmotility; ILD (interstitial lung disease) (HCC); OAB (overactive bladder); Low sodium levels; 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); Thymoma, malignant (HCC) Start: 11-25-2022 Refill Priyanka rausch MD Work Phone: [facility] [place] Comment on above: Refill Request Start: 11-16-2022 End: 11-16-2022 ambulatory Pulm Lab [facility] Work Phone: PULM LAB [facility] Comment on above: Spirometry Start: 11-16-2022 End: 11-16-2022 Patient encounter procedure Pulm Lab [facility] Work Phone: [facility] [place] Start: 11-06-2022 Orders Only John swenson [...] 10-27-2022 Subsequent hospital visit by physician [facility] W[facility] (I-Stat) Work Phone: Cat Scan Comment on above: 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) ([facility]) [J84.89] Start: 10-15-2022 Telephone encounter Mathew Yang MD Work Phone: [facility] Comment on above: Appointment Start: 10-15-2022 ambulatory PRIYANKA Muse ity:[facility] Start: 10-15-2022 End: 10-15-2022 Subsequent hospital visit by physician [facility] 1 Work Phone: Molecular Imaging Comment on above: Hydronephrosis with ureteropelvic junction (UPJ) obstruction [Q62.11] Start: 10-13-2022 End: 10-13-2022 ambulatory Lala Joseph VELAZQUEZSOLAR PANEL TECHNICIAN Work Phone: URO/Gynecology Comment on above: Nocturia (Primary Dx ); Urinary frequency; OAB (overactive bladder) Start: 10-13-2022 End: 10-13-2022 Telemedicine consultation with patient Lala Ruiz HAILE.SOLAR PANEL TECHNICIAN Work Phone: [facility] Start: 09-16-2022 End: 09-16-2022 Nursing evaluation of patient and report [employer] [employer] Nurse [place] Work Phone: [employer] [facility] Comment on above: OAB (overactive blad jeanette) (Primary Dx) Start: 08-20-2022 End: 08-20-2022 Patient encounter procedure Priyanka Smith MD Work Phone: [facility] Comment on above: Bronchitis (Primary Dx); ILD (interstitial lung disease) ([facility]); Subacute cough Start: 08-19-2022 Refill Karen Alcantara MD Work Phone: Pulmonary Medicine Comment on above: Refill Request Start: 08-12-2022 End: 08-12-2022 Subsequent hospital visit by physician Griselda [facility] [place] Work Phone: Radiology Comment on above: Acute cough [R05.1] Start: 08-12-2022 End: 08-12-2022 Office outpatient visit 25 minutes Guilelrmo Mccormick 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 Work Phone: [facility] Comment on above: Acute cough (Primary Dx); Sinobronchitis Start: 08-12-2022 Telephone encounter Guillermo silverman 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 Work Phone: [facility] Comment on above: Results Start: 08-11-2022 ambulatory MATHEW CHERRY JR Facility:[facility] Start: 08-11-2022 End: 08-11-2022 Subsequent hospital visit by physician Radio Kings[facility] Work Phone: Radiology Comment on above: Kidney stone [N20.0] Start: 08-11-2022 End: 08-11-2022 Patient encounter procedure Mathew Yang MD Work Phone: Urology Comment on above: Kidney stone (Primar y Dx); 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; Hydronephrosis with ureteropelvic junction (UPJ) obstruction Start: 07-24-2022 Documentation procedure Mammog ruthie Coordinator [facility] Start: 07-24-2022 Letter encounter Mammography Coordinator [facility] Department Start: 07-23-2022 End: 07-23-2022 Subsequent hospital visit by physician Screen Mammo [facility] Mammogram Comment on above: Encounter for screen ing mammogram for breast cancer [Z12.31] Start: 07-01-2022 End: 07-01-2022 Patient encounter procedure Brandi EASLEY Work Phone: [facility] Comment on above: Sore throat (Primary Dx); Fever, unspecified fever cause Start: 06-22-2022 End: 06-22-2022 Patient encounter procedure Priyanka Smith MD Work Phone: [facility] [place] Comment on above: Acquired hypothyroid ism (Primary Dx); Brad infection; Need for vaccination; ILD (interstitial lung disease) (HCC) Start: 06-17-2022 Manual pelvic examination Vic Mg MD Work Phone: Urogynecology Comment on above: Acquired hydronephro sis with ureteropelvic junction (UPJ) obstruction (Primary Dx) Start: 06-12-2022 Refill Priyanka rausch MD Work Phone: [facility] [place] Comment on above: Refill Request Start: 06-09-2022 End: 06-09-2022 Subsequent hospital visit by physician Ct [facility] (I-Stat) Work Phone: Cat Scan Comment on above: Gross hematuria [R31 .0] Start: 05-29-2022 Telephone encounter John hansen MD Work Phone: [employer] [facility] Comment on above: Future Appointment ( Cystoscopy possible Botox) Start: 05-26-2022 Telephone encounter German Tran x 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 Work Phone: Urogynecology Comment on above: Results Start: 05-22-2022 End: 05-22-2022 ambulatory Proc Shared Work Phone: [employer] [facility] Start: 05-22-2022 End: 05-22-2022 Patient encounter procedure Proc Rm Owens Shared Work Phone: [facility] Start: 04-21-2022 Refill Madelyn Franklin DO Work Phone: Gastroenterology Comment on above: Refill Request (Nyst atin) Start: 04-17-2022 End: 04-17-2022 Patient encounter procedure Karen Alcantara MD Work Phone: Pulmonary Medicine Comment on above: 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) ([facility]) (Primary Dx); High risk medication use Start: 04-11-2022 Refill Karen Alcantara MD Work Phone: Pulmonary Medicine Comment on above: Refill Request Start: 04-08-2022 Orders Only Karen Alcantara MD Work Phone: Pulmonary Medicine Comment on above: 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) Start: 2022 End: 2022 Subsequent hospital visit by physician [facility] (I-Stat) Work Phone: Cat Scan Start: 04-03-2022 Telephone encounter Cleo Odilon ramos 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 Work Phone: [facility] Comment on above: Results Start: 04-02-2022 End: 04-02-2022 Patient encounter procedure Genie Olson 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 Work Phone: [facility] Comment on above: Urinary frequency (P rimary Dx) Start: 03-31-2022 Refill Charis oro RIPSAWYER.CNM Work Phone: OB/Gynecology Comment on above: Refill Request Start: 03-27-2022 Telephone encounter John hansen MD Work Phone: [employer] [facility] Comment on above: Future Appointment ( Schedule UDS) Start: 03-24-2022 ambulatory John swenson MD Work Phone: [employer] [facility] Comment on above: Medication Start: 03-23-2022 Telephone encounter Tariq beverly 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 Work Phone (unformatted): [phone] [employer] [facility] Comment on above: Results Start: 03-16-2022 End: 03-16-2022 Patient encounter procedure John Mg MD Work Phone: [employer] [facility] Comment on above: Acute cystitis with hematuria (Primary Dx); Cystocele, midline; Urinary urgency; Urinary frequency; Overactive bladder Start: 03-05-2022 E-mail encounter fro m caregiver [facility] Provider RIVERA QUIÑONEZ [facility] Start: 03-05-2022 Follow-up encounter [facility] Provider Oph [...] caregiver Karen Alcantara MD Work Phone: [facility] Start: 02-16-2022 End: 02-16-2022 Patient encounter procedure Karen Alcantara MD Work Phone: Pulmonary Medicine Comment on above: 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); Ground glass opacity present on imaging of lung; Encounter for screening for osteoporosis; longterm current use of systemic steroids; 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 Start: 02-13-2022 Telephone encounter Priyanka toro MD Work Phone: NOC Comment on above: Appointment Start: 12-25-2021 ambulatory Charis oro APRN.CNM Work Phone: OB/Gynecology Comment on above: Use of vaginal cream Start: 12-22-2021 End: 12-22-2021 Nursing evaluation of patient and report Mi Nurse Work Phone: [facility] [place] Comment on above: Need for vaccination (Primary [...] End: 12-01-2021 Subsequent hospital visit by physician [facility] Work Phone: Radiology Comment on above: Cystocele, midline [ N81.11] Start: 11-26-2021 End: 11-26-2021 Refill Mathew Yang MD Work Phone: [facility] Comment on above: Refill Request Cystocele, midline ( Primary Dx); Encounter for gynecological examination (general) (routine) without abnormal findings; Encounter for screening mammogram for breast cancer; Urinary urgency; Urinary frequency; Vaginal atrophy Start: 11-26-2021 End: 11-26-2021 Patient encounter status Charis Lopez HAILE.CNM Work Phone: OB/Gynecology Start: 11-18-2021 Telephone encounter Priyanka toro MD Work Phone: [facility] Comment on above: Orders Start: 11-05-2021 End: 11-05-2021 Patient encounter procedure Cleo Maynard RIPSAWYER.CNM Work Phone: OB/Gynecology Comment on above: Urinary urgency (Karyn michele Dx); Overactive bladder Start: 08-12-2021 End: 08-12-2021 ambulatory Respiratory Therapist [facility] Work Phone: Pulmonary Medicine Comment on above: Spirometry Start: 08-12-2021 End: 08-12-2021 Patient encounter procedure Respiratory Therapist [facility] Work Phone: [place] [facility] Comment on above: 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 Priyanka ramires MD Work Phone: Start: 01-29-2025 Ct thorax w/o contra st [...] metabolic pane l calcium total Candelaria Pineda PHOTONICS ENGINEERING TECHNICIAN Start: 01-23-2025 Drug screen quantita tive vancomycin Jennie Moschella DO Work Phone: Start: 01-22-2025 Iadna s aureus methi cillin resist amp probe tq Candelaria Quoc Pineda PHOTONICS ENGINEERING TECHNICIAN Start: 01-22-2025 End: 01-22-2025 Culture bacterial quanttative colony count urine Tonny Mendoza DO Work Phone: Start: 01-22-2025 URINE HOLD [...] on above: Performed By: #### L [id number] ####Manager Shell: LACY OROSCO ([id number])[facility] ([facility])[address] [place] [address] Start: 01-22-2025 Basic metabolic pane l calcium [...] anya w/wo mxml vol vntj Becca Mir 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 Work Phone: Start: 09-11-2024 Radex facial bones c omplete minimum 3 views Jasmyne Day MD Work Phone: Start: 09-11-2024 Radex hip unilateral with pelvis 2-3 views Jasmyne Day MD Work Phone: Start: 08-21-2024 Mammography Ina Del Toro DO Work Phone: Start: 08-09-2024 Urnls dip stick/tabl et rgnt auto w/o microscopy Maira Chen 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 Work Phone: Start: 04-10-2024 Urnls dip stick/tabl et rgnt auto w/o microscopy Jonathan Monterroso 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 Work Phone: Start: 03-23-2024 FL GUIDANCE OR USE O NLY - NON-RESULTABLE Katherine Bowen MD Work Phone: Start: 03-16-2024 PFIZER-BIONTECH COVI D-19 VACCINE AGE 12+ YR (COMIRNAT) Priyanka Smith MD Work Phone: Start: 03-09-2024 [...] Level iv surg pathol ogy gross&microscopic exam Sayed Roxane Sung MD Work [...] Radiologic exam chest 2 views Jacqueline Valadez 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 Work Phone: Start: 01-31-2024 Lipid 1996 panel - S aimee or Plasma Wiley Benitez MD Work Phone: Start: 12-28-2023 Adult depression scr eening assessment Jacqueline Metcalfoanh 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 Work Phone: Start: 12-01-2023 Urnls dip stick/tabl et rgnt auto w/o microscopy Wiley Benitez MD Work Phone: Start: 11-09-2023 Urnls dip stick/tabl et rgnt auto w/o microscopy Mathew Yang MD Work Phone: Start: 09-02-2023 Urnls dip stick/tabl et rgnt auto w/o microscopy Tariq Brooks 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 Work Phone (unformatted): [phone] Start: 02-25-2023 Urnls dip stick/tabl et rgnt auto w/o microscopy Tariq Barley 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 Work Phone (unformatted): [phone] Start: 02-24-2023 [employer] COVI D-19 VACCINE (2022- SEASON) AGE 12+ [...] 08-12-2022 Radiologic exam chest 2 views Guillermo Mccormick 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 Work Phone: Start: 08-11-2022 Radiologic exam abdomen 1 view Mathew Yang MD Work Phone: Start: 07-23-2022 CHYNA SCREENING W JENN Co sabrina Lopez RIPSAWYER.CNM Work Phone: Start: 07-23-2022 Mammography Mammograph y [...] et rgnt auto w/o microscopy Genie Olson 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 Work Phone: Start: 03-16-2022 Culture bacterial qu anttative colony count urine John Mg MD Work Phone: Start: 03-16-2022 Urnls dip stick/tabl et rgnt auto w/o microscopy John Mg MD Work Phone: Start: 12-22-2021 [employer] COVI D-19 VACCINE, AGE 12+ YR (TALBOT TOP) Priyanka Smith MD Work Phone: Start: 12-19-2021 Adult depression scr eening assessment Priyanka Smith MD Work Phone: Start: 12-01-2021 Us transvaginal Courtne yaima Lopez RIPSAWYER.CNM Work Phone: Start: 11-26-2021 Urnls dip stick/tabl et rgnt auto w/o microscopy Cleo Maynard APRN.CNM Work Phone: Start: 11-05-2021 Urnls dip stick/tabl et rgnt auto w/o microscopy Cleo Maynard APRN.CNM Work Phone: Start: 08-12-2021 Spmtry w/vc expirato [...] DTaP/Tdap/Td Vaccines (4 - Td or Tdap) [facility] Start: 03-01-2033 Urine microalbumin profile DTaP,Tdap,Td Vaccine (4 - T d or Tdap) [facility] Start: 01-30-2029 Lipid panel Lipid Screening [facility] Start: 01-27-2028 Diabetes Screening Diabetes Screening [facility] Start: 12-23-2027 Colonoscopy COLONOSCOPY [facility] Start: 12-23-2027 COLORECTAL CANCER SCREENING COLORECTAL CANCER SCREENING [facility] Start: 12-23-2027 Screening for malignant neoplasm of colon [facility] Start: 12-21-2027 Diabetes Screening Diabetes Screening [facility] Start: 09-24-2027 Diabetes Screening Diabetes Screening [facility] Start: 07-20-2027 Diabetes Screening Diabetes Screening [facility] Start: 07-04-2027 Diabetes Screening Diabetes Screening [facility] Start: 05-11-2027 Diabetes Screening Diabetes Screening [facility] Start: 04-17-2027 Diabetes Screening Diabetes Screening [facility] Start: 03-09-2027 Diabetes Screening Diabetes Screening [facility] Start: 01-30-2027 Diabetes mellitus screening Diabetes Screening [facility] Start: 01-30-2027 Diabetes Screening Diabetes Screening [facility] Start: 12-15-2026 Diabetes Screening Diabetes Screening [facility] Start: 06-11-2026 Diabetes Screening Diabetes Screening [facility] Start: 01-30-2026 Annual PCP Team Chronic Disease Visit Annual PCP Team Chronic Disease Visit [facility] Start: 01-26-2026 Complete blood count Hemoglobin/Hematocrit [facility] Start: 01-26-2026 Creatinine measurement Serum Creatinine [facility] Start: 01-22-2026 End: 01-22-2026 Patient encounter procedure 01/22/2026 9:00 AM EDT Office Visit Urology [address] [address] Mathew Yang Jr., MD [address] [place] [id number] 1 yr follow up Urology Comment on above: 1 yr follow up Start: 01-10-2026 Annual PCP Team Chronic Disease Visit Annual PCP Team Chronic Disease Visit [facility] Start: 01-09-2026 End: 02-08-2026 XR Abdomen Supine and Upright XR ABDOMEN 1V SUPINE Radiology Routine Kidney stone Expected: 01/09/2026, Expires: 02/08/2026 [facility] Work Phone: Comment on above: Expected: 01/09/2026, Expires: Start: 01-09-2026 End: 01-09-2026 Patient encounter procedure 01/09/2026 8:00 AM EDT Appointment Radiology [address] [place], [place] [id number] Kidney stone [N20.0] Radiology Comment on above: Kidney stone [N20.0] Start: 12-27-2025 Annual PCP Team Chronic Disease Visit Annual PCP Team Chronic Disease Visit [facility] Start: 12-20-2025 Creatinine measurement Serum Creatinine [facility] Start: 12-13-2025 Annual PCP Team Chronic Disease Visit Annual PCP Team Chronic Disease Visit [facility] Start: 11-29-2025 Annual PCP Team Chronic Disease Visit Annual PCP Team Chronic Disease Visit [facility] Start: 11-02-2025 DIABETES SCREEN DIABETES SCREEN [facility] Start: 11-02-2025 Diabetes Screening Diabetes Screening [facility] Start: 09-28-2025 Creatinine measurement Serum Creatinine [facility] Start: 09-23-2025 Creatinine measurement Serum Creatinine [facility] Start: 09-11-2025 Annual PCP Team Chronic Disease Visit Annual PCP Team Chronic Disease Visit [facility] Start: 08-31-2025 Annual PCP Team Chronic Disease Visit Annual PCP Team Chronic Disease Visit [facility] Start: 08-22-2025 End: 08-22-2025 Patient encounter procedure 08/22/2025 8:30 AM EDT Appointment Mammogram [address] [place] [address] Encounter for screening mammogram for breast cancer [Z12.31] Mammogram Comment on above: Encounter for screening mammogram for br east cancer [Z12.31] Start: 08-21-2025 Screening for malignant neoplasm of breast [facility] Start: 07-31-2025 Annual PCP Team Chronic Disease Visit Annual PCP Team Chronic Disease Visit [facility] Start: 07-31-2025 Complete blood count Hemoglobin/Hematocrit [facility] Start: 07-19-2025 Creatinine measurement Serum Creatinine [facility] Start: 07-17-2025 End: 07-17-2025 Patient encounter procedure 07/17/2025 1:00 PM EST Office Visit [facility] [address] [facility] [place] [address] Jasmyne Day MD [address] [facility] [place] [address] Transfer of care Medicare Wellness [facility] Comment on above: Transfer of care Medicare Wellness Start: 07-16-2025 End: 07-16-2025 Patient encounter procedure 07/16/2025 12:00 PM EST Office Visit [facility] [place] [address] [facility] [place] [address] Priyanka Smith MD [address] [facility] [place] [address] Medicare Wellness [facility] Comment on above: Medicare Wellness Start: 07-12-2025 End: 07-12-2025 Patient encounter procedure 07/12/2025 9:40 AM EST Office Visit [facility] [address] [place] [address] Jacqueline Valadez APRN.SOLAR PANEL TECHNICIAN [address] [place] [address] Medicare Wellness [facility] Comment on above: Medicare Wellness Start: 07-10-2025 Annual PCP Team Chronic Disease Visit Annual PCP Team Chronic Disease Visit [facility] Start: 07-10-2025 Creatinine measurement Serum Creatinine [facility] Start: 07-04-2025 Creatinine measurement Serum Creatinine [facility] Start: 05-26-2025 Creatinine measurement Serum Creatinine [facility] Start: 05-24-2025 Annual PCP Team Chronic Disease Visit Annual PCP Team Chronic Disease Visit [facility] Start: 05-23-2025 DIABETES SCREEN DIABETES SCREEN [facility] Start: 05-11-2025 Creatinine measurement Serum Creatinine [facility] Start: 04-17-2025 Creatinine measurement Serum Creatinine [facility] Start: 04-10-2025 Annual PCP Team Chronic Disease Visit Annual PCP Team Chronic Disease Visit [facility] Start: 04-05-2025 Creatinine measurement Serum Creatinine [facility] Start: 03-16-2025 Annual PCP Team Chronic Disease Visit Annual PCP Team Chronic Disease Visit [facility] Start: 03-09-2025 Complete blood count Hemoglobin/Hematocrit [facility] Start: 03-09-2025 Creatinine measurement Serum Creatinine [facility] Start: 03-05-2025 Thyroid stimulating hormone measurement TSH Level [facility] Start: 03-01-2025 Annual PCP Team Chronic Disease Visit Annual PCP Team Chronic Disease Visit [facility] Start: 03-01-2025 End: 05-31-2025 CBC W Auto Differential panel - Blood COMPLETE BLOOD COUNT AND DIFFERENTIAL Lab Routine Iron deficiency anemia, unspecified iron deficiency anemia type Expected: 03/01/2025, Expires: 05/31/2025 [facility] Work Phone: Comment on above: Expected: 03/01/2025, Expires: Start: 03-01-2025 End: 05-31-2025 Comprehensive metabolic 2000 panel - Serum or Plasma COMPREHENSIVE METABOLIC PANEL Lab Routine Vaginal bleeding Acute cystitis with hematuria Iron deficiency anemia, unspecified iron deficiency anemia type Expected: 03/01/2025, Expires: 05/31/2025 [facility] Comment on above: Expected: 03/01/2025, Expires: Start: 03-01-2025 End: 05-31-2025 Ferritin [Mass/volume] in Serum or Plasma FERRITIN Lab Routine Iron deficiency anemia, unspecified iron deficiency anemia type Expected: 03/01/2025, Expires: 05/31/2025 [facility] Comment on above: Expected: 03/01/2025, Expires: Start: 03-01-2025 End: 05-31-2025 Iron and Iron binding capacity panel - Serum or Plasma IRON AND TIBC Lab Routine Iron deficiency anemia, unspecified iron deficiency anemia type Expected: 03/01/2025, Expires: 05/31/2025 [facility] Comment on above: Expected: 03/01/2025, Expires: Start: 03-01-2025 End: 03-01-2025 Patient encounter procedure 03/01/2025 8:00 AM EDT Office Visit Neurology [address] [phone] Gemma Roberts, HAILE.SOLAR PANEL TECHNICIAN [address] [address] 3 month follow up Neurology Comment on above: 3 month follow up Start: 02-16-2025 Colonoscopy DIAGNOSTIC COLONOSCOPY [facility] Start: 02-16-2025 Patient discharge [facility] Start: 02-08-2025 End: 02-08-2025 Patient encounter procedure 02/08/2025 1:00 PM EDT Office Visit URO/Gynecology [address] [place] [address] Wiley Benitez MD [address] [place] [address] 6 month follow up for chronic IC and gross hematuria URO/Gynecology Comment on above: 6 month follow up for chronic IC and ara ss hematuria Start: 02-06-2025 End: 02-06-2025 Patient encounter procedure Pulmonary Me dicine Comment on above: ct follow up Start: 01-30-2025 Creatinine measurement Serum Creatinine [facility] Start: 01-30-2025 End: 01-30-2025 Patient encounter procedure 01/30/2025 10:00 AM EDT Office Visit Family Medicine [place] [address] [place] [address] Jasmyne Day MD [address] [facility] [address] Discharged 01/26/25 [facility] - kidney stones (no availability with PCP dyad. Previously seen by Brown on 01/10/25) [facility] [place] Comment on above: Discharged 01/26/25 [facility] - kidney stones (no availability with PCP dyad. Previously seen by [facility] on 01/10/25) Start: 01-29-2025 End: 11-25-2025 CT Chest WO contrast CT CHEST WO IVCON Radiology Routine Interstitial pulmonary disease (HCC) Expected: 01/29/2025, Expires: 11/25/2025 [facility] Work Phone: Comment on above: Expected: 01/29/2025, Expires: Start: 01-29-2025 End: 01-29-2025 Patient encounter procedure 01/29/2025 9:20 AM EDT Appointment Cat Scan [address] [place] [address] Interstitial pulmonary disease (HCC) [J84.9] Cat Scan Comment on above: Interstitial pulmonary disease (HCC) [J8 4.9] Start: 01-25-2025 End: 01-25-2026 Basic metabolic 1998 panel - Serum or Plasma Basic metabolic panel Lab Routine Stage 3a chronic kidney disease (HCC) Expected: 01/25/2025 (Approximate), Expires: 01/25/2026 [facility] Work Phone: Comment on above: Expected: 01/25/2025 (Approximate), Expi res: 01/25/2026 Start: 01-22-2025 [facility] Start: 01-21-2025 Administration of blood product [facility] Start: 01-15-2025 COVID-19 Vaccine () COVID-19 Vaccine ( season) [facility] Start: 01-15-2025 Influenza vaccination Influenza Vaccine (#1) [facility] Start: 01-10-2025 End: 01-10-2025 Patient encounter procedure 01/10/2025 8:40 AM EDT Office Visit Family Medicine [place] [address] [facility] [place] [address] Jasmyne Day MD [address] [facility] [place], [place] [address] 2 week follow up [facility] [place] Comment on above: 2 week follow up Start: 01-09-2025 End: 01-09-2025 Patient encounter procedure 01/09/2025 2:30 PM EDT Office Visit Urology [address] [phone] Mathew Yang Jr., MD [address] [place] [phone] 1 yr follow up Urology Comment on above: 1 yr follow up Start: 12-27-2024 End: 12-27-2024 Patient encounter procedure 12/27/2024 2:20 PM EDT Office Visit [facility] [place] [address] [place], [place] [phone] Peyton Diaz APRN.SOLAR PANEL TECHNICIAN [address] [facility] [place], [place] [phone] Follow up BP [facility] [place] Comment on above: Follow up BP Start: 12-27-2024 Annual PCP Team Chronic Disease Visit Annual PCP Team Chronic Disease Visit [facility] Start: 12-27-2024 Anxiety Screening Anxiety Screening [facility] Start: 12-27-2024 Depression Screening Depression Screening [facility] Start: 12-27-2024 HIV screening HIV Screening [facility] Comment on above: Postponed from 1976 (Declined at t his time) Start: 12-26-2024 End: 12-26-2024 Patient encounter procedure 12/26/2024 9:00 AM EDT Office Visit Urology [address] [phone] Mathew Yang Jr., MD [address] [place] [address] 1 yr follow up Urology Comment on above: 1 yr follow up Start: 12-22-2024 Patient discharge [facility] Start: 12-20-2024 End: 01-19-2025 XR Abdomen Supine and Upright XR ABDOMEN 1V SUPINE Radiology Routine Kidney stone Expected: 12/20/2024, Expires: 01/19/2025 [facility] Work Phone: Comment on above: Expected: 12/20/2024, Expires: Start: 12-20-2024 End: 12-20-2024 Patient encounter procedure 12/20/2024 8:00 AM EDT Appointment Radiology [address] [place] [address] Kidney stone [N20.0] Radiology Comment on above: Kidney stone [N20.0] Start: 12-15-2024 Complete blood count Hemoglobin/Hematocrit [facility] Start: 12-15-2024 Creatinine measurement Serum Creatinine [facility] Start: 12-13-2024 End: 12-13-2024 Patient encounter procedure 12/13/2024 7:40 AM EDT Office Visit Family [facility] [address] [place] [address] Cyndi Naik APRN.SOLAR PANEL TECHNICIAN [address] [facility] [place] [address] 2 week BP check [facility] Comment on above: 2 week BP check Start: 12-06-2024 End: 12-06-2024 Patient encounter procedure 12/06/2024 8:15 AM EDT Office Visit OB/Gynecology [address] [address] Charis Lopez APRN.CNM [address] [place] [address] Annual OB/Gynecology Comment on above: Annual Start: 12-04-2024 DIABETES SCREEN DIABETES SCREEN [facility] Start: 11-28-2024 End: 11-28-2024 Patient encounter procedure 11/28/2024 8:15 AM EDT Office Visit OB/Gynecology [address] [place] [address] Charis Lopez APRN.CNM [address] [place] [address] Annual OB/Gynecology Comment on above: Annual Start: 11-16-2024 End: 11-16-2024 Patient encounter procedure 11/16/2024 8:00 AM EDT Office Visit Neurology [address] [phone] Gemma Roberts, 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 [address] [address] PD Neurology Comment on above: PD Start: 10-31-2024 End: 10-31-2024 ambulatory 10/31/2024 3:00 PM EDT OT/PT/Speech Visit [facility] [address] [place] [address] Leandro Vargas, PT [address] [facility] [address] Overactive bladder [N32.81] [facility] Comment on above: Overactive bladder [N32.81] Start: 10-31-2024 End: 10-31-2024 Patient encounter procedure 10/31/2024 9:00 AM EDT Office Visit URO/Gynecology [address] [place] [address] German Grubbs, 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 [address] [place] [address] follow up hematuria URO/Gynecology Comment on above: follow up hematuria Start: 10-26-2024 End: 10-26-2024 ambulatory 10/26/2024 10:45 AM EDT OT/PT/Speech Visit [facility] [address] [place] [address] Leandro Vargas, PT [address] [place] [id number] Overactive bladder [N32.81] [facility] Comment on above: Overactive bladder [N32.81] Start: 10-26-2024 End: 10-26-2024 Patient encounter procedure 10/26/2024 9:30 AM EDT Office Visit Pulmonary Medicine [address] [place] [address] Karen Alcantara MD [address] [place] [address] 6 mo f/up Pulmonary Medicine Comment on above: 6 mo f/up Start: 10-26-2024 End: 10-26-2024 ambulatory PULM LAB [facility] Comment on above: NSIP (nonspecific interstitial pneumonit is) ([facility]) [J84.89] Start: 10-17-2024 End: 10-17-2024 ambulatory 10/17/2024 10:30 AM EDT OT/PT/Speech Visit [facility] [address] [place] [address] Eufemia Anglin, PT, DPT Overactive bladder [N32.81] [facility] Comment on above: Overactive bladder [N32.81] Start: 10-13-2024 Annual PCP Team Chronic Disease Visit Annual PCP Team Chronic Disease Visit [facility] Start: 10-10-2024 End: 10-10-2024 ambulatory 10/10/2024 11:00 AM EDT OT/PT/Speech Visit [facility] [address] [place] [address] Leandro Vargas, PT [address] [facility] [place] [address] Overactive bladder [N32.81] [facility] Comment on above: Overactive bladder [N32.81] Start: 10-02-2024 End: 10-02-2024 ambulatory 10/02/2024 7:45 AM EDT OT/PT/Speech Visit [facility] [address] [place] [address] Leandro Vargas, PT [address] [facility] [place] [address] Overactive bladder [N32.81] [facility] Comment on above: Overactive bladder [N32.81] Start: 09-28-2024 End: 09-28-2024 ambulatory 09/28/2024 9:15 AM EDT OT/PT/Speech Visit [facility] [address] [place] [address] Leandro Vargas, PT [address] [facility] [place] [address] Fall in home, initial encounter [W19.XXXA, Y92.009] [facility] Comment on above: Fall in home, initial encounter [W19.XXX A, Y92.009] Start: 09-22-2024 End: 12-22-2024 Comprehensive metabolic 2000 panel - Serum or Plasma COMPREHENSIVE METABOLIC PANEL Lab Routine On Cellcept therapy Expected: 09/22/2024, Expires: 12/22/2024 [facility] Work Phone: Comment on above: Expected: 09/22/2024, Expires: Start: 09-22-2024 End: 09-22-2024 Patient encounter procedure 09/22/2024 1:00 PM EDT Office Visit Neurology [address] [phone] Rika Adam, 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 [address] [place] [address] [place] [facility] Comment on above: [place] Start: 09-13-2024 Covid-19 Vaccine ( season) Covid-19 Vaccine ( season) [facility] Start: 08-31-2024 End: 11-30-2024 Thyrotropin [Units/volume] in Serum or Plasma [facility] Work Phone: Comment on above: Expected: 08/31/2024, Expires: Start: 08-31-2024 End: 08-31-2024 Patient encounter procedure 08/31/2024 9:40 AM EDT Office Visit Endocrinology [address] [place] [address] Latha Cuevas MD [address] [place] [address] two month follow up Endocrinology Comment on above: two month follow up Start: 08-28-2024 Lipid 1996 panel - Serum or Plasma Lipid Screening [facility] Start: 08-28-2024 Lipid panel Lipid Screening [facility] Start: 08-28-2024 LIPID SCREEN LIPID SCREEN [facility] Start: 08-21-2024 End: 08-21-2024 Patient encounter procedure 08/21/2024 9:10 AM EDT Appointment Mammogram [address] [place] [address] Encounter for screening mammogram for breast cancer [Z12.31] Mammogram Comment on above: Encounter for screening mammogram for br east cancer [Z12.31] Start: 08-17-2024 End: 11-16-2024 Bacteria identified in Urine by Culture [facility] Work Phone: Comment on above: Expected: 08/17/2024 (Approximate), Expi res: 11/16/2024 Start: 08-17-2024 Screening for malignant neoplasm of breast Mammogram Screening [facility] Start: 08-17-2024 End: 11-16-2024 Urinalysis complete panel - Urine [facility] Comment on above: Expected: 08/17/2024 (Approximate), Expi res: 11/16/2024 Start: 08-14-2024 End: 08-14-2024 Patient encounter procedure 08/14/2024 1:45 PM EDT Appointment Radiology [address] [place] [address] right flank discomfort Radiology Comment on above: right flank discomfort Start: 08-10-2024 End: 09-09-2025 US Kidney - bilateral and Urinary bladder US KIDNEY/BLADDER Radiology Routine Gross hematuria Nephrolithiasis Expected: 08/10/2024 (Approximate), Expires: 09/09/2025 [facility] Work Phone: Comment on above: Expected: 08/10/2024 (Approximate), Expi res: 09/09/2025 Start: 08-09-2024 End: 08-09-2024 Patient encounter procedure 08/09/2024 2:00 PM EDT Office Visit Urology [address] [address] Maira Chen APRN.SOLAR PANEL TECHNICIAN [address] [place], [place] [id number] hematuria and clots, see RUSSELL per [facility] Comment on above: hematuria and clots, see RUSSELL per [facility] Start: 08-08-2024 End: 08-08-2024 Patient encounter procedure 08/08/2024 9:40 AM EDT Office Visit Endocrinology [address] [place] [address] Latha Cuevas MD [address] [place], [place] [phone] F/U LABS (last seen 05/05/24) Endocrinology Comment on above: F/U LABS (last seen 05/05/24) Start: 08-04-2024 End: 08-04-2024 Follow-up encounter 08/04/2024 2:30 PM EDT [facility] URO/Gynecology [address] [place] [address] German Grubbs APRN.SOLAR PANEL TECHNICIAN [address] [place] [address] 6 week follow up URO/Gynecology Comment on above: 6 week follow up Start: 08-03-2024 End: 08-03-2024 Patient encounter procedure 08/03/2024 11:00 AM EDT Office Visit Neurology [address] [phone] Bogdan Roberts MD [address] [place] [address] 6 month follow up Neurology Comment on above: 6 month follow up Start: 07-31-2024 End: 10-30-2024 C reactive protein [Mass/volume] in Serum or Plasma [facility] Comment on above: Expected: 07/31/2024, Expires: Start: 07-31-2024 End: 10-30-2024 CBC W Auto Differential panel - Blood [facility] Comment on above: Expected: 07/31/2024, Expires: Start: 07-31-2024 End: 10-30-2024 Creatine kinase [Enzymatic activity/volume] in Serum or Plasma [facility] Comment on above: Expected: 07/31/2024, Expires: Start: 07-31-2024 End: 10-30-2024 Erythrocyte sedimentation rate [facility] Work Phone: Comment on above: Expected: 07/31/2024, Expires: Start: 07-28-2024 End: 07-28-2024 Follow-up encounter 07/28/2024 3:30 PM EDT [facility] URO/Gynecology [address] [place] [address] Wiley Benitez MD [address] [place] [address] 6 week follow up URO/Gynecology Comment on above: 6 week follow up Start: 07-10-2024 End: 07-10-2024 Patient encounter procedure 07/10/2024 10:00 AM EST Office Visit Family Medicine [facility] [address] [place], [place] [phone] Jacqueline Valadez APRN.SOLAR PANEL TECHNICIAN [address] [place], [place] [address] medicare wellness [facility] Comment on above: medicare wellness Start: 06-29-2024 End: 09-28-2024 CBC W Auto Differential panel - Blood COMPLETE BLOOD COUNT AND DIFFERENTIAL Lab Routine ILD (interstitial lung disease) (HCC) Expected: 06/29/2024, Expires: 09/28/2024 [facility] Comment on above: Expected: 06/29/2024, Expires: Start: 06-29-2024 End: 09-28-2024 Comprehensive metabolic 2000 panel - Serum or Plasma COMPREHENSIVE METABOLIC PANEL Lab Routine Low sodium levels Expected: 06/29/2024, Expires: 09/28/2024 [facility] Comment on above: Expected: 06/29/2024, Expires: Start: 06-29-2024 End: 09-28-2024 Thyrotropin [Units/volume] in Serum or Plasma THYROID STIMULATING HORMONE Lab Routine Hypothyroidism, unspecified type Expected: 06/29/2024, Expires: 09/28/2024 [facility] Comment on above: Expected: 06/29/2024, Expires: Start: 06-29-2024 End: 09-28-2024 Thyroxine (T4) free [Mass/volume] in Serum or Plasma T4 FREE/FREE THYROXINE Lab Routine Hypothyroidism, unspecified type Expected: 06/29/2024, Expires: 09/28/2024 [facility] Comment on above: Expected: 06/29/2024, Expires: Start: 06-26-2024 End: 09-25-2024 Comprehensive metabolic 2000 panel - Serum or Plasma COMPREHENSIVE METABOLIC PANEL Lab Routine Function kidney decreased Expected: 06/26/2024, Expires: 09/25/2024 [facility] Work Phone: Comment on above: Expected: 06/26/2024, Expires: Start: 06-26-2024 End: 09-25-2024 Hemoglobin A1c in Blood HEMOGLOBIN A1C Lab Routine Prediabetes Expected: 06/26/2024, Expires: 09/25/2024 [facility] Comment on above: Expected: 06/26/2024, Expires: Start: 06-26-2024 End: 09-25-2024 Lipid 1996 panel - Serum or Plasma LIPID PANEL BASIC Lab Routine High triglycerides Expected: 06/26/2024, Expires: 09/25/2024 [facility] Comment on above: Expected: 06/26/2024, Expires: Start: 06-26-2024 End: 06-26-2024 Patient encounter procedure 06/26/2024 8:45 AM EST Office Visit Orthopaedics [address] [place] [address] Raul Juan MD [address] [place] [address] R wrist (surgery previously by Drake 2017) swelling painful now Orthopaedics Comment on above: R wrist (surgery previously by Drake ) swelling painful now Start: 06-22-2024 Annual PCP Team Chronic Disease Visit Annual PCP Team Chronic Disease Visit [facility] Start: 06-20-2024 End: 06-20-2024 Patient encounter procedure 06/20/2024 9:00 AM EST Office Visit Pulmonary Medicine [address] [place] [address] Becca Mir APRN.SOLAR PANEL TECHNICIAN [address] [place] [address] CT follow up Pulmonary Medicine Comment on above: CT follow up Start: 06-16-2024 End: 09-15-2024 ACTH STIMULATION,3 TIME POINTS ACTH STIMULATION,3 TIME POINTS Lab Routine ACTH elevation Expected: 06/16/2024, Expires: 09/15/2024 [facility] Work Phone: Comment on above: Expected: 06/16/2024, Expires: 5 Start: 06-12-2024 End: 05-17-2025 CT Chest WO contrast [facility] Work Phone: Comment on above: Expected: 06/12/2024, Expires: 6 Start: 06-12-2024 End: 06-12-2024 Patient encounter procedure 06/12/2024 11:00 AM EST Appointment Cat Scan [address] [place] [address] Interstitial pulmonary disease (HCC) [J84.9] Cat Scan Comment on above: Interstitial pulmonary disease (HCC) [J8 4.9] Start: 06-11-2024 Creatinine measurement Serum Creatinine [facility] Start: 06-10-2024 DIABETES SCREEN DIABETES SCREEN [facility] Start: 06-09-2024 End: 06-09-2024 Follow-up encounter 06/09/2024 3:30 PM EST [facility] URO/Gynecology [address] [place] [address] Wiley Benitez MD [address] [place] [address] 4-6 week follow up URO/Gynecology Comment on above: 4-6 week follow up Start: 05-30-2024 End: 05-30-2024 Patient encounter procedure 05/30/2024 8:00 AM EST Office Visit Neurology [address] [phone] Gemma Roberts, 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 [address] [place] [address] Return in about 2 months (around 05/16/2024). Neurology Comment on above: Return in about 2 months (around 024). Start: 05-24-2024 End: 05-24-2024 Follow-up encounter Urogynecology Comment on above: 4-6 week follow up Start: 05-24-2024 End: 05-24-2024 Patient encounter procedure 05/24/2024 8:20 AM EST Office Visit Family Medicine [place] [address] [place] [address] Jacqueline Valadez, 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 [address] [place] [address] BL knee/leg pain [facility] [place] Comment on above: BL knee/leg pain Start: 05-17-2024 Advance Directive Discussion Advance Directive Discussion [facility] Start: 05-17-2024 Medicare Advantage Annual Wellness Visit Medicare Advantage Annual Wellness Visit [facility] Start: 05-11-2024 Covid-19 Vaccine ( season) Covid-19 Vaccine () [facility] Start: 05-08-2024 Complete blood count Hemoglobin/Hematocrit [facility] Start: 05-05-2024 End: 08-04-2024 Comprehensive metabolic 2000 panel - Serum or Plasma COMPREHENSIVE METABOLIC PANEL Lab Routine Secondary adrenal insufficiency (HCC) Expected: 05/05/2024, Expires: 08/04/2024 [facility] Comment on above: Expected: 05/05/2024, Expires: Start: 05-05-2024 End: 08-04-2024 Corticotropin [Mass/volume] in Plasma ACTH BLD Lab Routine Secondary adrenal insufficiency (HCC) Expected: 05/05/2024, Expires: 08/04/2024 [facility] Comment on above: Expected: 05/05/2024, Expires: Start: 05-05-2024 End: 08-04-2024 Cortisol [Mass/volume] in Serum or Plasma CORTISOL, SERUM Lab Routine Secondary adrenal insufficiency (HCC) Expected: 05/05/2024, Expires: 08/04/2024 [facility] Work Phone: Comment on above: Expected: 05/05/2024, Expires: Start: 05-05-2024 End: 05-05-2024 Patient encounter procedure 05/05/2024 8:00 AM EST Office Visit Endocrinology [address] [place] [id number] Latha Cuevas MD [address] [place] [address] 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 (HCC) [E27.40]; longterm systemic 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 [Z79.52] Endocrinology Comment on above: 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 (HCC) [E27.40]; Lo ng term systemic 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 [Z79.52] Start: 04-17-2024 End: 04-17-2024 Follow-up encounter 04/17/2024 3:30 PM EST [facility] URO/Gynecology [address] [place] [address] Wiley Benitez MD [address] [facility] 6 [place] [address] 6 week follow up URO/Gynecology Comment on above: 6 week follow up Start: 04-17-2024 End: 04-17-2024 Patient encounter procedure 04/17/2024 9:30 AM EST Office Visit Pulmonary Medicine [address] [place] [address] Karen Alcantara MD [address] [place] [address] 6 mo f/up Pulmonary Medicine Comment on above: 6 mo f/up Start: 04-07-2024 End: 04-07-2024 Patient encounter procedure 04/07/2024 9:20 AM EST Procedure Visit [facility] [address] [facility] [address] [place] [phone] Phong Blake MD [address] [facility] [address] [place] [phone] [facility] Start: 03-23-2024 End: 03-23-2024 Admission to same day surgery center 03/23/2024 12:30 PM EST - 03/23/2024 1:30 PM EST Surgery [facility] MAIN OR [address] [facility] [place] [phone] Katherine Bowen MD [address] [place] [address] CYSTOSCOPY AND PYELOGRAM [80894 (CPT )] [facility] OR Comment on above: CYSTOSCOPY AND PYELOGRAM [11060 (CPT )] Start: 03-23-2024 End: 03-23-2024 Cysto bladder w/ureteral catheterization CYSTOSCOPY AND PYELOGRAM Calculus of ureter 03/23/2024 12:30 PM EST [facility] Operating Room Start: 03-23-2024 End: 03-23-2024 Cysto w/insert ureteral stent CYSTOSCOPY WITH INSERTIO N URETERAL STENT Calculus of ureter 03/23/2024 12:30 PM EST [facility] Operating Room Start: 03-23-2024 End: 03-23-2024 Cysto w/ureteroscopy w/lithotripsy CYSTOSCOPY WITH URETEROSCOPY AND OR PYELOSCOPY WITH REMOVAL OR MANIPULATION CALCULUS WITH LITHOTRIPSY Calculus of ureter 03/23/2024 12:30 PM EST [facility] Operating Room Start: 03-23-2024 Subsequent hospital visit by physician 03/23/2024 12:30 PM EST Hospital Encounter [facility] MAIN OR [address] [place] [phone] Katherine Bowen MD [address] [facility] 3 [place] [address] [facility] MAIN OR Start: 03-17-2024 End: 06-16-2024 PHOSPHORYLATED ALPHA-SYNUCLEIN, SKIN BIOPSY PHOSPHORYLATED ALPHA-SYNUCLEIN, SKIN BIOPSY Lab Routine Parkinsonism, unspecified Parkinsonism type (HCC) Expected: 03/17/2024, Expires: 06/16/2024 [facility] Comment on above: Expected: 03/17/2024, Expires: Start: 03-16-2024 End: 03-16-2024 Patient encounter procedure 03/16/2024 9:00 AM EDT Office Visit Neurology [address] [phone] Gemma Roberts APRN.SOLAR PANEL TECHNICIAN [address] [place] [address] TD, secondary PDism, vs IPD Neurology Comment on above: TD, secondary PDism, vs IPD Start: 03-07-2024 End: 03-07-2024 Egd transoral biopsy single/multiple [facility] Gastroenterology Start: 03-07-2024 End: 03-07-2024 Evaluation and management of inpatient 03/07/2024 8:45 AM EDT - 03/07/2024 9:15 AM EDT Surgery [facility] Endoscopy [address] [place] [address] Jennifer Sung MD [address] [place] [phone] ESOPHAGOGASTRODUODENOSCOPY WITH BIOPSY [58815 (CPT )] [facility] Endoscopy Comment on above: ESOPHAGOGASTRODUODENOSCOPY WITH BIOPSY [ 72265 (CPT )] Start: 03-06-2024 End: 03-06-2024 Patient encounter procedure 03/06/2024 9:40 AM EDT Office Visit Family [facility] [address] [place], [place] [phone] Jacqueline Valadez APRN.SOLAR PANEL TECHNICIAN [address] [place] [address] BP check [facility] Comment on above: BP check Start: 03-03-2024 End: 03-03-2024 Patient encounter procedure 03/03/2024 10:00 AM EDT Office Visit URO/Gynecology [address] [place] [address] Wiley Benitez MD [address] [facility] [address] [place] [address] 6 week follow up URO/Gynecology Comment on above: 6 week follow up Start: 01-28-2024 End: 04-28-2024 Comprehensive metabolic 2000 panel - Serum or Plasma COMPREHENSIVE METABOLIC PANEL Lab Routine Stage 3a chronic kidney disease (HCC) Function kidney decreased Expected: 01/28/2024, Expires: 04/28/2024 [facility] Work Phone: Comment on above: Expected: 01/28/2024, Expires: Start: 01-20-2024 End: 01-20-2024 Patient encounter procedure 01/20/2024 8:00 AM EDT Office Visit Neurology [address] [phone] Bogdan Roberts MD [address] [place] [address] Tremor [R25.1] Neurology Comment on above: Tremor [R25.1] Start: 01-16-2024 COVID-19 Vaccine ( season) COVID-19 Vaccine () [facility] Start: 01-16-2024 COVID-19 Vaccine () COVID-19 Vaccine () [facility] Start: 01-16-2024 Covid-19 Vaccine () Covid-19 Vaccine () [facility] Start: 01-16-2024 Covid-19 Vaccine () Covid-19 Vaccine () [facility] Start: 01-16-2024 Influenza vaccination Influenza Vaccine (#1) [facility] Start: 01-13-2024 End: 01-13-2024 Patient encounter procedure 01/13/2024 2:00 PM EDT Office Visit Neurology [address] [phone] Bogdan Roberts MD [address] [place] [address] Tremor [R25.1] Neurology Comment on above: Tremor [R25.1] Start: 01-11-2024 End: 01-11-2024 Patient encounter procedure 01/11/2024 11:00 AM EDT Office Visit URO/Gynecology [address] [place] [place] [address] Wiley Benitez MD [address] [facility] [address] [place] [address] one month follow up URO/Gynecology Comment on above: one month follow up Start: 12-28-2023 End: 03-28-2024 Hemoglobin A1c in Blood HEMOGLOBIN A1C Lab Routine Elevated glucose Expected: 12/28/2023, Expires: 03/28/2024 [facility] Comment on above: Expected: 12/28/2023, Expires: Start: 12-28-2023 End: 03-28-2024 Lipid 1996 panel - Serum or Plasma LIPID PANEL BASIC Lab Routine Obesity, Class I, BMI 30-34.9 Expected: 12/28/2023, Expires: 03/28/2024 [facility] Comment on above: Expected: 12/28/2023, Expires: Start: 12-28-2023 End: 12-28-2023 Patient encounter procedure 12/28/2023 7:20 AM EDT Office Visit [facility] [address] [place] [address] Jacqueline Valadez APRN.SOLAR PANEL TECHNICIAN [address] [facility] [place] [address] 6 mo f/u [facility] Comment on above: 6 mo f/u Start: 12-23-2023 ANNUAL PCP TEAM CHRONIC DISEASE VISIT ANNUAL PCP TEAM CHRONIC DISEASE VISIT [facility] Start: 12-23-2023 HIV SCREENING HIV SCREENING [facility] Comment on above: Postponed from 1976 (Declined at t his time) Start: 12-23-2023 HIV screening HIV Screening [facility] Comment on above: Postponed from 1976 (Declined at t his time) Start: 12-23-2023 End: 12-21-2024 XR Abdomen Supine and Upright XR ABDOMEN 1V SUPINE Radiology Routine Kidney stone Expected: 12/23/2023, Expires: 12/21/2024 [facility] Work Phone: Comment on above: Expected: 12/23/2023, Expires: Start: 12-23-2023 End: 12-23-2023 Patient encounter procedure 12/23/2023 9:00 AM EDT Office Visit [facility] [address] [facility] [place] [address] Priyanka Smith MD [address] [place] [address] [facility]: 6 mo f/u Start: 12-21-2023 End: 03-21-2024 Basic metabolic 2000 panel - Serum or Plasma BASIC METABOLIC PNL Lab Routine Low sodium levels Expected: 12/21/2023 (Approximate), Expires: 03/21/2024 [facility] Work Phone: Comment on above: Expected: 12/21/2023 (Approximate), Expi res: 03/21/2024 Start: 12-21-2023 End: 12-21-2023 Patient encounter procedure 12/21/2023 2:00 PM EDT Office Visit Urology [address] [address] Mathew Yang Jr., MD [address] [place] [address] post-op and kub prior--ok'd by jay Doe Comment on above: post-op and kub prior--ok'd by jay Start: 12-21-2023 End: 03-21-2024 Thyrotropin [Units/volume] in Serum or Plasma TSH BLD Lab Routine Hypothyroidism, unspecified type Expected: 12/21/2023 (Approximate), Expires: 03/21/2024 [facility] Work Phone: Comment on above: Expected: 12/21/2023 (Approximate), Expi res: 03/21/2024 Start: 12-01-2023 End: 12-01-2023 Patient encounter procedure 12/01/2023 1:30 PM EDT Office Visit [employer] [facility] [address] [phone] Wiley Benitez MD [address] [facility] [address] [place] [address] Cysto with Botox approved for 200units [employer] [facility] Comment on above: Cysto with Botox approved for 200units Start: 11-29-2023 End: 11-29-2023 Patient encounter procedure 11/29/2023 8:15 AM EDT Office Visit OB/Gynecology [address] [place] [id number] Charis Lopez APRN.CNM [address] [place] [id number] annual OB/Gynecology Comment on above: annual Start: 11-22-2023 End: 11-22-2023 Admission to same day surgery center 11/22/2023 8:00 AM EDT - 11/22/2023 9:30 AM EDT [facility] [address] [place] [address] [place] [address] [place] [id number] EXTRACORPOREAL SHOCKWAVE LITHOTRIPSY UNILATERAL [facility] Comment on above: EXTRACORPOREAL SHOCKWAVE LITHOTRIPSY UNI LATERAL Start: 11-22-2023 End: 11-22-2023 Lithotripsy xtrcorp shock wave [place] Start: 11-22-2023 Subsequent hospital visit by physician 11/22/2023 8:00 AM EDT Hospital Encounter [facility] [address] [place] [address] [place] [address] [place] [id number] Renal calculus, right [N20.0] [facility] Comment on above: Renal calculus, right [N20.0] Start: 11-09-2023 End: 11-09-2023 Patient encounter procedure 11/09/2023 9:00 AM EDT Office Visit Urology [address] [place] [id number] [place] [address] [place] [id number] 1y follow up Urology Comment on above: 1y follow up Start: 11-04-2023 End: 12-03-2023 XR ABDOMEN 1V SUPINE XR ABDOMEN 1V SUPINE Radiology Routine Kidney stone Expected: 11/04/2023, Expires: 12/03/2023 [facility] Work Phone: Comment on above: Expected: 11/04/2023, Expires: Start: 11-04-2023 End: 11-04-2023 Patient encounter procedure 11/04/2023 8:00 AM EDT Appointment Radiology [address] [place] [address] kidney stones Radiology Comment on above: kidney stones Start: 11-03-2023 HEMOGLOBIN/HEMATOCRIT HEMOGLOBIN/HEMATOCRIT [facility] Start: 11-03-2023 SERUM CREATININE SERUM CREATININE [facility] Start: 11-03-2023 End: 11-03-2023 Patient encounter procedure 11/03/2023 1:30 PM EDT Office Visit [employer] [facility] [address] [facility] [address] [place] [address] Wiley Benitez MD [address] [facility] [address] [place] [address] Cystoscopy with BOTOX [employer] [facility] Comment on above: Cystoscopy with BOTOX Start: 11-02-2023 End: 11-02-2023 Patient encounter procedure 11/02/2023 8:20 AM EDT Appointment Cat Scan [address] [place] [address] Routine Cat Scan Comment on above: Routine Start: 11-01-2023 End: 10-15-2024 CT Chest WO contrast CT CHEST WO IVCON Radiology Routine Expected: 11/01/2023, Expires: 10/15/2024 [facility] Work Phone: Comment on above: Expected: 11/01/2023, Expires: 5 Start: 09-16-2023 End: 12-16-2023 CBC panel - Blood by Automated count COMPLETE BLOOD COUNT Lab Routine Expected: 09/16/2023, Expires: 12/16/2023 [facility] Comment on above: Expected: 09/16/2023, Expires: 4 Start: 09-16-2023 End: 12-16-2023 Hepatic function 2000 panel - Serum or Plasma HEPATIC FUNCTION PNL Lab Routine Expected: 09/16/2023, Expires: 12/16/2023 [facility] Comment on above: Expected: 09/16/2023, Expires: Start: 09-16-2023 End: 09-16-2023 Patient encounter procedure 09/16/2023 1:15 PM EDT Office Visit Pulmonary Medicine [address] [place] [address] Karen Alcantara MD [address] [place] [address] 6 month follow up Pulmonary Medicine Comment on above: 6 month follow up Start: 08-24-2023 HPV TESTING HPV TESTING [facility] Start: 08-24-2023 PAP TESTING PAP TESTING [facility] Start: 08-21-2023 ANNUAL PCP TEAM CHRONIC DISEASE VISIT ANNUAL PCP TEAM CHRONIC DISEASE VISIT [facility] Start: 07-24-2023 Mammography [facility] Start: 07-24-2023 Screening for malignant neoplasm of breast Mammogram Screening [facility] Start: 06-24-2023 End: 08-24-2023 Basic metabolic 2000 panel - Serum or Plasma BASIC METABOLIC PNL Lab Routine Low sodium levels Expected: 06/24/2023 (Approximate), Expires: 08/24/2023 [facility] Work Phone: Comment on above: Expected: 06/24/2023 (Approximate), Expi res: 08/24/2023 Start: 06-24-2023 End: 08-24-2023 Thyrotropin [Units/volume] in Serum or Plasma TSH BLD Lab Routine Hypothyroidism, unspecified type Expected: 06/24/2023 (Approximate), Expires: 08/24/2023 [facility] Work Phone: Comment on above: Expected: 06/24/2023 (Approximate), Expi res: 08/24/2023 Start: 06-22-2023 ANNUAL PCP TEAM CHRONIC DISEASE VISIT ANNUAL PCP TEAM CHRONIC DISEASE VISIT [facility] Start: 05-17-2023 Behavioral Health Screening Behavioral Health Screening [facility] Start: 05-17-2023 Medicare Advantage Annual Wellness Visit Medicare Advantage Annual Wellness Visit [facility] Start: 04-21-2023 Covid-19 Vaccine () Covid-19 Vaccine () [facility] Start: 01-15-2023 Influenza vaccination [facility] Start: 12-20-2022 End: 02-19-2023 Thyrotropin [Units/volume] in Serum or Plasma TSH BLD Lab Routine Acquired hypothyroidism Expected: 12/20/2022, Expires: 02/19/2023 [facility] Work Phone: Comment on above: Expected: 12/20/2022, Expires: 3 Start: 12-19-2022 Adult depression screening assessment DEPRESSION SCREENING [facility] Start: 12-19-2022 ANNUAL PCP TEAM CHRONIC DISEASE VISIT ANNUAL PCP TEAM CHRONIC DISEASE VISIT [facility] Start: 12-19-2022 HIV SCREENING HIV SCREENING [facility] Comment on above: Postponed from 1976 (Declined at t his time) Start: 10-16-2022 End: 05-17-2023 Ct thorax w/o contrast material CT CHEST WO IVCON Radiology Routine NSIP (nonspecific interstitial pneumonia) (HCC) Expected: 10/16/2022, Expires: 05/17/2023 [facility] Work Phone: Comment on above: Expected: 10/16/2022, Expires: 4 Start: 06-26-2022 Mammography MAMMOGRAM [facility] Start: 06-21-2022 End: 08-21-2022 CBC W Auto Differential panel - Blood CBC + DIFF Lab Routine Hypothyroidism, unspecified type ILD (interstitial lung disease) (HCC) Medication monitoring encounter Expected: 06/21/2022 (Approximate), Expires: 08/21/2022 [facility] Work Phone: Comment on above: Expected: 06/21/2022 (Approximate), Expi res: 08/21/2022 Start: 06-21-2022 End: 08-21-2022 Comprehensive metabolic 2000 panel - Serum or Plasma COMP METABOLIC PANEL Lab Routine Hypothyroidism, unspecified type ILD (interstitial lung disease) (HCC) Medication monitoring encounter Expected: 06/21/2022 (Approximate), Expires: 08/21/2022 [facility] Work Phone: Comment on above: Expected: 06/21/2022 (Approximate), Expi res: 08/21/2022 Start: 06-21-2022 End: 08-21-2022 Thyrotropin [Units/volume] in Serum or Plasma TSH BLD Lab Routine Hypothyroidism, unspecified type Expected: 06/21/2022 (Approximate), Expires: 08/21/2022 [facility] Work Phone: Comment on above: Expected: 06/21/2022 (Approximate), Expi res: 08/21/2022 Start: 06-18-2022 ANNUAL PCP TEAM CHRONIC DISEASE VISIT ANNUAL PCP TEAM CHRONIC DISEASE VISIT [facility] Start: 05-17-2022 DEPRESSION ASSESSMENT DEPRESSION ASSESSMENT [facility] Start: 05-01-2022 COVID-19 VACCINE (5 - Inna risk series) COVID-19 VACCINE (5 - Inna risk series) [facility] Start: 04-23-2022 COVID-19 VACCINE (4 - Booster for Inna series) COVID-19 VACCINE (4 - Booster for Inna series) [facility] Start: 04-21-2022 PNEUMOCOCCAL (2 - PCV) PNEUMOCOCCAL (2 - PCV) [facility] Start: 04-08-2022 End: 06-08-2022 CBC panel - Blood by Automated count CBC Lab Routine NSIP (nonspecific interstitial pneumonia) (HCC) Expected: 04/08/2022, Expires: 06/08/2022 [facility] Work Phone: Comment on above: Expected: 04/08/2022, Expires: 3 Start: 04-08-2022 End: 06-08-2022 Comprehensive metabolic 2000 panel - Serum or Plasma COMP METABOLIC PANEL Lab Routine NSIP (nonspecific interstitial pneumonia) (HCC) Expected: 04/08/2022, Expires: 06/08/2022 [facility] Work Phone: Comment on above: Expected: 04/08/2022, Expires: 3 Start: 2022 End: 03-18-2023 Ct thorax w/o contrast material CT CHEST WO IVCON Radiology Routine Expected: 2022, Expires: 03/18/2023 [facility] Work Phone: Comment on above: Expected: 2022, Expires: 3 Start: 02-20-2022 End: 04-22-2022 25-hydroxyvitamin D3 [Mass/volume] in Serum or Plasma VITAMIN D 25 HYDROXY Lab Routine Steroid-induced osteopenia Expected: 02/20/2022, Expires: 04/22/2022 [facility] Work Phone: Comment on above: Expected: 02/20/2022, Expires: 2 Start: 02-16-2022 COVID-19 VACCINE (4 - Booster for Inna series) COVID-19 VACCINE (4 - Booster for Inna series) [facility] Start: 02-12-2022 End: 09-11-2022 Ct thorax w/o contrast material CT CHEST WO IVCON Radiology Routine Interstitial pulmonary disease (HCC) Expected: 02/12/2022, Expires: 09/11/2022 [facility] Work Phone: Comment on above: Expected: 02/12/2022, Expires: 3 Start: 01-15-2022 Influenza vaccination INFLUENZA (#1) [facility] Start: 12-16-2021 Adult depression screening assessment DEPRESSION SCREENING [facility] Start: 07-31-2021 SHINGRIX VACCINE (2 of 2) SHINGRIX VACCINE (2 of 2) [facility] Start: 06-02-2021 COVID-19 VACCINE (3 - Booster for Inna series) COVID-19 VACCINE (3 - Booster for Inna series) [facility] Start: 05-17-2021 DEPRESSION ASSESSMENT DEPRESSION ASSESSMENT [facility] Start: 04-29-2020 Urine microalbumin profile [facility] Start: 08-24-2019 Screening for malignant neoplasm of cervix Cervical Cancer Screening [facility] Start: 2018 RSV Immunization aged 60 or older (1 - 1-dose 60+ series) RSV Immunization aged 60 or older (1 - 1-dose 60+ series) [facility] Start: 2018 RSV Immunization for Adults (1 - Risk 60-74 years 1-dose series) RSV Immunization for Adults (1 - Risk 60-74 years 1-dose series) [facility] Start: 2018 RSV Vaccine (1 - 1-dose 60+ series) RSV Vaccine (1 - 1-dose 60+ series) [facility] Start: 2018 RSV Vaccine (1 - Risk 60-74 years 1-dose series) RSV Vaccine (1 - Risk 60-74 years 1-dose series) [facility] Start: 08-28-2015 FECAL OCCULT BLOOD FECAL OCCULT BLOOD [facility] Start: 08-28-2015 Screening for malignant neoplasm of colon Fecal Occult Blood [facility] Start: 2003 COLOGUARD (FIT-DNA) COLOGUARD (FIT-DNA) [facility] Start: [address] COLONOGRAPHY [facility] Start: 2003 Screening for malignant neoplasm of colon [facility] Start: 2003 SIGMOIDOSCOPY SIGMOIDOSCOPY [facility] Start: 1998 Screening for malignant neoplasm of breast Mammogram [facility] Start: 1988 Screening for malignant neoplasm of cervix [facility] Start: 1979 Screening for malignant neoplasm of cervix Pap Smear [facility] Start: 1976 Anxiety Screening Anxiety Screening [facility] Start: 1976 Depression Screening Depression Screening [facility] Start: 1976 Hepatitis C screening Hepatitis C Screening [facility] Start: 1976 HIV SCREENING HIV SCREENING [facility] Start: 1970 Depression Screening Depression Screening [facility] Start: 1959 MMR Vaccines (1 of 1 - Standard series) MMR Vaccines (1 of 1 - Standard series) [facility] Start: 1958 Annual wellness visit Medicare Initial Physical (IPPE) [facility] Start: 1958 Screening for malignant neoplasm of colon [facility] Bacteria identified in Blood by Culture [facility] Work Phone: Bacteria identified in Urine by Culture URINE CULTURE Microbiology Routine Urinary urgency 11/05/2021 9:40 AM EDT [facility] Work Phone: Bacteria identified in Urine by Culture URINE CULTURE Microbiology Routine Urinary frequency Ordered: 04/02/2022 [facility] Work Phone: Comment on above: Ordered: 04/02/2022 Bacteria identified in Urine by Culture URINE CULTURE Microbiology Routine Post-operative state Urinary frequency 02/25/2023 10:54 AM EDT [facility] Work Phone (unformatted): [phone] Bacteria identified in Urine by Culture URINE CULTURE Microbiology Routine Urinary frequency Dysuria 09/02/2023 9:01 AM EDT [facility] Work Phone (unformatted): [phone] Bacteria identified in Urine by Culture URINE CULTURE Microbiology Routine Urinary tract infection with hematuria, site unspecified 04/10/2024 4:15 PM [facility] Work Phone: Bacteria identified in Urine by Culture BACTERIAL CULTURE, URINE Microbiology Routine Gross hematuria 08/09/2024 2:52 PM EDT [facility] BRAD/TRICHOMONAS NAAT BRAD /TRICHOMONAS NAAT Lab Routine Vulvar burning 10/07/2023 9:23 AM EDT [facility] Work Phone (unformatted): [phone] End: 08-12-2022 CBC W Auto Differential panel - Blood CBC + DIFF Lab Routine History of immunosuppressive therapy Every 6 months for 4 Occurrences starting 08/12/2021 until 08/12/2022 [facility] Work Phone: Comment on above: Every 6 months for 4 Occurrences startin g 08/12/2021 until 08/12/2022 CT Chest WO contrast CT CHEST WO IVCON Radiology Routine 11/02/2023 8:58 AM EDT [facility] Work Phone: End: 10-11-2025 CT Head WO contrast CT BRAIN WO IVCON Radiology STAT Injury of head, initial encounter 1 Occurrences starting 09/11/2024 until 10/11/2025 [facility] Work Phone: Comment on above: 1 Occurrences starting 09/11/2024 until 10/11/2025 DBT Breast - bilater al screening CHYNA SCREENING W JENN Radiology Routine Encounter for screening mammogram for malignant neoplasm of breast 08/18/2023 9:38 AM EDT [facility] Work Phone: End: 12-28-2024 DBT Breast - bilateral screening CHYNA SCREENING W JENN Radiology Routine Encounter for screening mammogram for breast cancer 1 Occurrences starting 11/29/2023 until 12/28/2024 [facility] Work Phone: Comment on above: 1 Occurrences starting 11/29/2023 until 12/28/2024 DBT Breast - bilater al screening CHYNA SCREENING W JENN Radiology Routine Encounter for screening mammogram for breast cancer 08/21/2024 9:09 AM EDT [facility] Work Phone: End: 01-05-2026 DBT Breast - bilateral screening CHYNA SCREENING W JENN Radiology Routine Encounter for screening mammogram for breast cancer 1 Occurrences starting 12/06/2024 until 01/05/2026 [facility] Work Phone: Comment on above: 1 Occurrences starting 12/06/2024 until 01/05/2026 End: 03-18-2023 Dxa bone density study 1/> sites axial skel DXA-AXIAL SKELETON Radiology Routine 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 1 Occurrences starting 02/16/2022 until 03/18/2023 [facility] Work Phone: Comment on above: 1 Occurrences starting 02/16/2022 until 03/18/2023 Hzv zoster vacc fernandez mbinant adjuvanted im njx ZOSTER VACC RECOMBINANT,IM Immunization/Injection Routine Need for vaccination Ordered: 11/18/2021 [facility] Work Phone: Comment on above: Ordered: 11/18/2021 End: 09-10-2023 Kidney img morphology vascular flow 1 w/rx NM RENAL FLOW/FXN W PHARM Radiology Routine Hydronephrosis with ureteropelvic junction (UPJ) obstruction 1 Occurrences starting 08/11/2022 until 09/10/2023 [facility] Work Phone: Comment on above: 1 Occurrences starting 08/11/2022 until 09/10/2023 End: 07-20-2025 LUNG DIFFUSION CAPACITY (DLCO) LUNG DIFFUSION CAPACITY (DLCO) PFT Routine NSIP (nonspecific interstitial pneumonitis) ([facility]) 1 Occurrences starting 06/20/2024 until 07/20/2025 [facility] Comment on above: 1 Occurrences starting 06/20/2024 until 07/20/2025 LUNG DIFFUSION CAPAC ITY (DLCO) LUNG DIFFUSION CAPACITY (DLCO) PFT Routine NSIP (nonspecific interstitial pneumonitis) (HCC) 10/26/2024 8:51 AM EDT [facility] Work Phone: End: 07-20-2025 LUNG VOLUMES LUNG VOLUMES PFT Routine NSIP (nonspecific interstitial pneumonitis) ([facility]) 1 Occurrences starting 06/20/2024 until 07/20/2025 [facility] Comment on above: 1 Occurrences starting 06/20/2024 until 07/20/2025 LUNG VOLUMES LUNG VOLUMES PFT Routine NSIP (nonspecific interstitial pneumonitis) ([facility]) 10/26/2024 8:51 AM EDT [facility] Work Phone: End: 07-21-2024 CHYNA SCREENING CHYNA SCREENING Radiology Routine Encounter for screening mammogram for malignant neoplasm of breast 1 Occurrences starting 06/22/2023 until 07/21/2024 [facility] Work Phone: Comment on above: 1 Occurrences starting 06/22/2023 until 07/21/2024 End: 12-26-2022 CHYNA SCREENING W JENN CHYNA SCREENING W JENN Radiology Routine Encounter for screening mammogram for breast cancer 1 Occurrences starting 11/26/2021 until 12/26/2022 [facility] Work Phone: Comment on above: 1 Occurrences starting 11/26/2021 until 12/26/2022 Punch biopsy skin ea sep/additional lesion PUNCH BIOPSY SKIN EA SEP/ADDITIONAL LESION Procedures Routine Parkinsonism, unspecified Parkinsonism type (HCC) Ordered: 03/17/2024 [facility] Comment on above: Ordered: 03/17/2024 Punch biopsy skin si ngle lesion PUNCH BIOPSY SKIN SINGLE LESION Procedures Routine Parkinsonism, unspecified Parkinsonism type (HCC) Ordered: 03/17/2024 [facility] Work Phone: Comment on above: Ordered: 03/17/2024 SPIROMETRY BASELINE ONLY SPIROME TRY BASELINE ONLY PFT Routine NSIP (nonspecific interstitial pneumonia) ([facility]) 08/12/2021 1:37 PM EDT [facility] Work Phone: End: 07-20-2025 SPIROMETRY BASELINE ONLY SPIROMETRY BASELINE ONLY PFT Routine NSIP (nonspecific interstitial pneumonitis) ([facility]) 1 Occurrences starting 06/20/2024 until 07/20/2025 [facility] Work Phone: Comment on above: 1 Occurrences starting 06/20/2024 until 07/20/2025 SPIROMETRY BASELINE ONLY SPIROME TRY BASELINE ONLY PFT Routine NSIP (nonspecific interstitial pneumonitis) ([facility]) 10/26/2024 8:51 AM EDT [facility] Work Phone: URODYNAMICS WHI URODYNAMICS WHI Procedures Routine Urinary urgency Urinary frequency Overactive bladder Ordered: 03/16/2022 [facility] Work Phone: Comment on above: Ordered: 03/16/2022 US Kidney - bilatera l and Urinary bladder US KIDNEY/BLADDER Radiology Routine Gross hematuria Nephrolithiasis 08/14/2024 1:58 PM EDT [facility] Work Phone: End: 12-27-2022 Us transvaginal US FEMALE PELVIS TRANSVAG Radiology Routine Cystocele, midline Urinary urgency Urinary frequency 1 Occurrences starting 11/26/2021 until 12/27/2022 [facility] Work Phone: Comment on above: 1 Occurrences starting 11/26/2021 until 12/27/2022 End: 09-10-2023 XR ABDOMEN 1V SUPINE XR ABDOMEN 1V SUPINE Radiology Routine Kidney stone 1 Occurrences starting 08/11/2022 until 09/10/2023 [facility] Work Phone: Comment on above: 1 Occurrences starting 08/11/2022 until 09/10/2023 XR ABDOMEN 1V SUPINE XR ABDOMEN 1V SUPINE Radiology Routine Kidney stone 08/11/2022 3:32 PM EDT [facility] Work Phone: XR Abdomen Single view [facility] XR Abdomen Supine and Upright XR ABDOMEN 1V SUPINE Radiology Routine Kidney stone 11/04/2023 8:02 AM EDT [facility] Work Phone: XR Abdomen Supine and Upright XR ABDOMEN 1V SUPINE Radiology Routine Kidney stone 11/29/2023 8:08 AM EDT [facility] Work Phone: End: 03-31-2025 XR Chest PA and Lateral XR CHEST 2V FRONTAL/LAT Radiology STAT Rib pain 1 Occurrences starting 03/01/2024 until 03/31/2025 [facility] Work Phone: Comment on above: 1 Occurrences starting 03/01/2024 until 03/31/2025 End: 07-14-2025 XR Hand - right PA and Lateral and Oblique XR HAND GENERAL 3V PA/LAT/OBL RIGHT Radiology Routine Right hand pain 1 Occurrences starting 06/14/2024 until 07/14/2025 [facility] Work Phone: Comment on above: 1 Occurrences starting 06/14/2024 until 07/14/2025 XR Hand - right PA a nd Lateral and Oblique XR HAND GENERAL 3V PA/LAT/OBL RIGHT Radiology Routine Right hand pain 06/26/2024 8:42 AM EST [facility] Work Phone: End: 06-23-2025 XR Knee - bilateral 4 Views XR KNEE GENERAL 4V AP BOTH/PA BOTH/LAT/MERC BILATERAL Radiology Routine Acute pain of both knees 1 Occurrences starting 05/24/2024 until 06/23/2025 [facility] Work Phone: Comment on above: 1 Occurrences starting 05/24/2024 until 06/23/2025 XR Knee - bilateral 4 Views XR K NEE GENERAL 4V AP BOTH/PA BOTH/LAT/MERC BILATERAL Radiology Routine Acute pain of both knees 05/24/2024 10:23 AM EST [facility] OR [facility] OR [facility] Immunizations Immunization Date Immunization Notes Care Provider [facility] 03-16-2024 COVID-19 vaccine, ag e 12+ yr ([facility]) Priyanka Smith MD Work Phone: [facility] 03-16-2024 influenza, high dose seasonal, preservative-free Priyanka Smith MD Work Phone: [facility] 03-16-2024 influenza virus vaccine, unspecified formulation German Grubbs 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 Work Phone: [facility] 03-01-2023 tetanus toxoid, reduced diphtheria toxoid, and acellular pertussis vaccine, adsorbed [place] Nurse Work Phone: [facility] Work Phone: 02-24-2023 COVID-19 vaccine, ag e 12+ yr, season (PFIZER-BIONTECH) Immunization [place] Work Phone: [facility] Work Phone: 02-24-2023 influenza, injectabl e, quadrivalent, contains preservative Immunization [place] Work Phone: [facility] Work Phone: 02-24-2023 influenza virus vaccine, unspecified formulation Mathew Yang Jr., MD Work Phone: [facility] 06-22-2022 pneumococcal Conjugate, unspecified formulation Priyanka Smith MD Work Phone: [facility] Work Phone: 06-22-2022 pneumococcal (PCV20) vaccine, 20 valent (PREVNAR 20) Priyanka Smith MD Work Phone: [facility] 03-06-2022 COVID-19 booster vaccine, age 12+ yr, bivalent (PFIZER-BIONTECH) Tariq Brooks 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 Work Phone (unformatted): [phone] [facility] Work Phone: 03-06-2022 influenza, injectabl e, quadrivalent, contains preservative Tariq Brooks 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 Work Phone (unformatted): [phone] [facility] Work Phone: 03-06-2022 influenza virus vaccine, unspecified formulation Karen Alcantara MD Work Phone: [facility] 12-22-2021 COVID-19 vaccine, ag e 12+ yr (PFIZER-BIONTECH - [facility]) [place] Nurse Work Phone: [facility] Work Phone: 12-04-2021 zoster vaccine recombinant Gerri Cruz PA-C Work Phone: [facility] Work Phone: 06-05-2021 zoster vaccine recombinant Priyanka Smith MD Work Phone: [facility] Work Phone: 04-21-2021 pneumococcal polysaccharide vaccine, 23 valent Priyanka Smith MD Work Phone: [facility] Work Phone: 03-08-2021 influenza, injectabl e, quadrivalent, contains preservative Priyanka Smith MD Work Phone: [facility] Work Phone: 07-22-2020 COVID-19 vaccine (INNA) Priyanka Smith MD Work Phone: [facility] 03-04-2020 influenza, injectabl e, quadrivalent, contains preservative Priyanka Smith MD Work Phone: [facility] 02-28-2019 influenza, injectabl e, quadrivalent, contains preservative Priyanka Smith MD Work Phone: [facility] 03-28-2018 influenza, injectabl e, quadrivalent, preservative free Priyanka Smith MD Work Phone: [facility] 03-08-2018 influenza, injectabl e, quadrivalent, preservative free Dr. Priyanka Smith MD Work Phone: [facility] 03-08-2018 influenza, seasonal, injectable, preservative free Priyanka Smith MD Work Phone: [facility] 04-19-2017 influenza, injectabl e, quadrivalent, contains preservative Priyanka Smith MD Work Phone: [facility] 04-17-2014 influenza, seasonal, injectable Priyanka Smith MD Work Phone: [facility] 05-26-2013 influenza virus vaccine, unspecified formulation Priyanka Smith MD Work Phone: [facility] 02-11-2012 influenza virus vaccine, unspecified formulation Priyanka Smith MD Work Phone: [facility] 04-29-2010 diphtheria, tetanus toxoids and acellular pertussis vaccine Priyanka Smith MD Work Phone: [facility] 08-05-2009 tetanus toxoid, reduced diphtheria toxoid, and acellular pertussis vaccine, adsorbed Priyanka Smith MD Work Phone: [facility] 08-05-2009 tuberculin skin test ; purified protein derivative solution, intradermal Wiley Benitez MD Work Phone: [facility] NEGATED: Highlighted row has not occurred!03-05-2024 Seasonal trivalent influenza vaccine, adjuvanted, preservative free Cecilia Barney PA-C Work Phone: [facility] Comment on above: Deferred: Patient Re fused Payers Date Payer Category Payer Unknown [id number] 2024 Self-pay 2023 Medicare [id number] 2023 Medicare (Managed Care) MMO MEDADVANTAGE HMO [id number] 2023 Medicare HMO MMO MEDICARE ADV ANTAGE [id number] 2023 Unknown [id number] 2022 Medicaid [id number] 2022 Medicaid [id number] 2020 Medicaid [employer] MEDICAID [id number] 2020-Present [phone] [address] [place] [address] Medicaid [id number] 2020 Medicaid [id number] Medicare [id number] Unknown [id number]. 462 Unknown [id number]. 462 Unknown [id number]. 462 Unknown [id number] [id number]. 462 Unknown [id number] 2.16.840.1.005546.3.579.2. 462 Unknown [id number] 2.16.840.1.305346.3.579.2. 462 Unknown [id number] [id number]. 462 Unknown [id number] [id number]. 462 Unknown [id number] 2.16.840.1.211053.3.579.2. 462 Unknown [id number] 2.16.840.1.089398.3.579.2. 462 Unknown [id number] [id number]. 462 Unknown [id number] [id number]. 462 Unknown [id number] [id number]. 462 Unknown [id number] 462 Social History Date Type Detail Facility Start: 01-04-2020 End: 02-12-2025 Tobacco smoking status NHIS Never smoked tobacco [facility] Start: 06-18-2021 End: 01-30-2025 Alcohol intake Current drinker of alcohol (finding) [facility] Start: 01-04-2020 End: 06-02-2020 History SDOH Alcohol Frequency 2 [facility] Start: 01-04-2020 End: 06-02-2020 History SDOH Alcohol Std Drinks 1 [facility] Start: 03-01-2020 History SDOH Social Connections Phone 4 [facility] Start: 09-03-2019 History SDOH Social Connections Living 5 [facility] Start: 09-03-2019 History SDOH Physica l Activity DPW 0 [facility] Start: 09-03-2019 Education 17 [facility] Start: 01-04-2020 End: 02-16-2022 Tobacco Comment No one in household smokes. Smoker in childhood home. [facility] Start: 1960 Sex Assigned At Not on file [facility] Start: 05-27-2020 End: 04-17-2022 Exposure to SARS-CoV-2 (event) Not sure [facility] Start: 01-04-2020 End: 11-09-2023 Tobacco use and exposure Smokeless tobacco non-user [facility] Work Phone: Start: 02-13-2022 End: 02-23-2022 Exposure to SARS-CoV-2 (event) Unable to assess [facility] Start: 11-16-2022 End: 11-29-2024 History of Social function [facility] Work Phone: Start: 11-16-2022 End: 11-29-2024 Tobacco use panel [facility] Work Phone: Start: 04-17-2012 Adult Depression Screening Assessment 0 [facility] Work Phone: How often to you hav e a drink containing alcohol? Monthly or less [facility] Work Phone: How many standard drinks containing alcohol do you have on a typical day? 1 or 2 [facility] Work Phone: How often do you hav e 6 or more drinks on 1 occasion? Never [facility] Work Phone: How hard is it for y ou to pay for the very basics like food, housing, medical care, and heating Very hard [facility] Work Phone: Do you feel stress - tense, restless, nervous, or anxious, or unable to sleep at night because your mind is troubled all the time - these days [OSQ] Not at all [facility] (I/We) worried wheth er (my/our) food would run out before (I/we) got money to buy more. Never true [facility] Work Phone: In the past 12 month s, was there a time when you were not able to pay the mortgage or rent on time? No [facility] Start: 03-04-2024 End: 03-23-2024 Alcoholic beverage intake Lifetime non-drinker (finding) [facility] Start: 1960 Sex assigned at Female S [facility] Start: 03-04-2024 Gender identity Identifies as female gender (finding) [facility] Start: 03-04-2024 Sexual orientation Heterosexual (cirilo naranjo) [facility] Start: 12-15-2021 Sex Female (finding) [facility] Start: 06-08-2018 Alcohol Alcohol [facility] Start: 06-08-2018 Lives Lives [facility] Start: 06-11-2018 Tobacco Use Tobacco Use [facility] Are you now , , , , never or living with a partner? [facility] NEGATED: Highlighted rowStart: NINF History of tobacco use Passive smoker [facility] Medical Equipment Procedure Code Equipment Code Equipment Original Text Equipment Identifier Dates Lead Intrstim Mr camacho 28cm - [id number] Start: 01-28-2023 Interstim X Rech arge Free Neurostimulator - [id number] Start: 01-28-2023 Stent Uret 6fr 2 4cm Wo Gw - [id number] Start: 03-05-2024 Stent Uret 6fr 2 4cm Wo Gw - [id number] Start: 03-05-2024 Stent Uret 6fr 2 4cm Wo Gw - [id number] Start: 03-23-2024 PRAVEEN GOLDMAN LG threadsy FDA Sta rt: 12-23-[address] art: 12-23-2017 RELOAD,BLUE 60 FDA Start: 12-23-2017 RELOAD,GOLD 60 FDA Start: 12-23-2017 STAPLER,INTRA CD H29A ETHICON FDA Start: 12-23-2017 SUSIMAVISJONO NEAL threadsy FDA Sta rt: 12-23-2017 SUSIMAVISJONO HOUSTON threadsy FDA St art: 12-23-2017 RELOAD,BLUE 60 FDA Start: 12-23-2017 RELOAD,GOLD 60 FDA Start: 12-23-2017 STAPLER,INTRA CD H29A ETHICON FDA Start: 12-23-2017 PRAVEEN GOLDMAN LG threadsy FDA Sta rt: 12-23-[address]coin [address] art: 12-23-2017 RELOAD,BLUE 60 FDA Start: 12-23-2017 RELOAD,GOLD 60 FDA Start: 12-23-2017 STAPLER,INTRA CD H29A ETHICON FDA Start: 12-23-2017 SUSIMAVISJONO NEAL threadsy FDA Sta rt: 12-23-[address] art: 12-23-2017 RELOAD,BLUE 60 FDA Start: 12-23-2017 RELOAD,GOLD 60 FDA Start: 12-23-2017 STAPLER,INTRA CD H29A ETHICON FDA Start: 12-23-2017 SUSIMAVISJONO WEBBER FDA Sta rt: 12-23-[address] art: 12-23-2017 RELOAD,BLUE 60 FDA Start: 12-23-2017 RELOAD,GOLD 60 FDA Start: 12-23-2017 STAPLER,INTRA CD H29A ETHICON FDA Start: 12-23-2017 PRAVEEN GOLDMAN LG FDA Sta rt: 12-23-[address] art: 12-23-2017 RELOAD,BLUE 60 FDA Start: 12-23-2017 RELOAD,GOLD 60 FDA Start: 12-23-2017 STAPLER,INTRA CD H29A ETHICON FDA Start: 12-23-2017 CLIPPRAVEEN LG FDA Sta rt: 12-23-[address] art: 12-23-2017 RELOAD,BLUE 60 FDA Start: 12-23-2017 RELOAD,GOLD 60 FDA Start: 12-23-2017 STAPLER,INTRA CD H29A ETHICON FDA Start: 12-23-2017 PRAVEEN GOLDMAN LG FDA Sta rt: 12-23-[address] art: 12-23-2017 RELOAD,BLUE 60 FDA Start: 12-23-2017 RELOAD,GOLD 60 FDA Start: 12-23-2017 STAPLER,INTRA CD H29A ETHICON FDA Start: 12-23-2017 Goals Date Patient Goal Desired Activity /State Personal health goal Functional Status Date Assessment Result Facility 07-10-2024 Total score [AUDIT-C] 0 07/10/19 25 9:41 AM Mariam Roldan LPN [facility] 03-26-2020 Are you deaf, or do you have serious difficulty hearing No 03/26/2020 10:37 AM Mariaelena Mims RN No [facility] 03-26-2020 Are you blind, or do you have serious difficulty seeing, even when wearing glasses No 03/26/2020 10:37 AM Mariaelena Mims RN No [facility] 03-26-2020 Do you have serious difficulty walking or climbing stairs No 03/26/2020 10:37 AM Mariaelena Mims RN No [facility] 03-26-2020 Do you have difficul ty dressing or bathing No 03/26/2020 10:37 AM Mariaelena Mims RN No [facility] 03-26-2020 Because of a physica l, mental, or emotional condition, do you have difficulty doing errands alone such as visiting a physician's office or shopping No 03/26/2020 10:37 AM Mariaelena Mims RN No [facility] Mental Status Date Assessment Result Facility 02-16-2025 Cognitive function Voice/Name [facility] Work Phone: 12-22-2024 Cognitive function Voice/Name [facility] Work Phone: 03-26-2020 Because of a physica l, mental, or emotional condition, do you have serious difficulty concentrating, remembering, or making decisions No 03/26/2020 10:37 AM Mraiaelena Mims RN No [facility] Clinical Notes 07-17-2018 to 03-02-2025 Jasmyne Day MD - 01/30/2025 9:59 AM Cara Pierre, RT(R) - 01/29/2025 9:20 AM Reshma Strange DO - 01/26/2025 9:12 AM EDTInstructions Note Date & Type Note Facility 03-02-2025 Progress note [facility] 02-16-2025 Procedure note [facility] 02-16-2025 Procedure note [facility] 02-16-2025 Consult note [facility] 02-16-2025 History and physi christina note [facility] 02-16-2025 Note [facility] Medical Records Department [address] [place] [address] History Physical Exam 02/16/25 0651 MR#: [id number] Acct: [id number] Name: EREN MERCHANT Rep #: [id number] : 1960 64 From: [facility] Friend DO PCP: Dr. Gonzalo Day MD Status:[facility] Location: [place] [address] HPI - General General Date of Admission: 02/16/25 Date of Service: 02/16/25 Chief Complaint: constipation HPI Narrative EREN MERCHANT, is a 64 F who presents [Chief Complaint: abd pain . [facility] established March 2024 after [facility] hospitalization [...] due to stool in the entire colon. Lavage was attempted. Patient has been taking Trula nce daily which has reduced her abdominal pain but has not produced bowel movements as well as Linzess did. She denies abdominal pain, nausea vomiting, or lack of appetite. [facility] Medical History Loss of hearing Walker as ambulation aid Low iron Injury of head and neck History of hiatal hernia Gastric reflux Back pain Parkinson's disease Orthostatic hypotension History [...] mg chewable tablet 81 mg PO DAILY@0800 06/28/1802/11 History cholecalciferol (vitamin D3) 25 1,000 unit PO BID 06/28/18 5 History mcg (1,000 unit) tablet (Vitamin D3) mycophenolate mofetil 500 mg 500 mg PO BID 03/04/24 02/15/25 Hi story tablet (CellCept) levothyroxine 100 mcg capsule 100 mcg PO QDAY 04/06/24 02/16/25 05:20 History ondansetron 4 mg disintegrating 4 mg PO Q8H PRN nausea and vomitin g 04/06/24 Unknown History tablet Lactobacillus acidophilus 250 500 mmu cells PO DAILY 06/02/24 History million cell capsule (Probiotic Acidophilus) amitriptyline 50 mg tablet 100 mg PO QHS 07/07/24 02/15/25 Hi story carbidopa 25 mg-levodopa 100 mg 1 tab PO TID 10/11/24 02/15/25 18: 00 History tablet (Sinemet) carbidopa 25 mg tablet 25 mg PO TID 11/08/24 02/15/25 18: 00 History multivitamin (Daily Multi-Vitamin 1 tab PO DAILY 12/19/24 02/15/25 History tablet) fludrocortisone 0.1 mg tablet 0.2 mg PO DAILY 12/29/24 02/16/25 05:20 History pantoprazole 20 mg tablet,delayed 20 mg PO QDAY #30 tabs 01/22/25 1 05:20 Rx release ferrous sulfate 325 mg (65 mg 325 mg PO DAILY 02/12/25 02/15/25 History iron) tablet (Iron (ferrous sulfate)) fludrocortisone 0.1 (more content not included)... [facility] 02-16-2025 Consult note [facility] 01-30-2025 History of Present illness Narrative Chief Complaint Patient presents with: Hospital F/U: [facility]. [facility]. 01/22-01/26. Severe vaginal bleeding. Recording using [employer] software for draft documentation of the visit was discussed with the patient/authorized manufacturers service representative; all questions welcomed and answered. Patient/authorized manufacturers service representative agreed to proceed HPI Eren Merchant is a 64 year old female who presents here today for Hospital Discharge Follow up. Patient admitted to [facility] from 01/22-01/26 for heavy vaginal bleeding and anemia with following hospital course: Hospital Course: Eren is a 64 y.o. female with a past medical history of parkinson's, thyroid cancer s/p surgical intervention, and overactive bladder with recurrent UTI. Patient developed heavy vaginal bleeding Saturday 01/20, she initially presented to [place], was then transferred to [facility] for OB-Home Appliance Tech consult. Hgb baseline ~12, down to 8. She received 1.5 units of PRBC, second unit stopped for fever. CT A/P showed thickened bladder wall and bilateral hydronephrosis. Bleeding stopped on own this morning, before Megace was given. 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 per patient [...] biopsy obtained but D&C was not performed. Home Appliance Tech does not think uterus was cause of [...] - Hospitalized from the to the at [facility] for heavy vaginal bleeding and anemia. - Hemoglobin dropped from 12 to 8; Eren received 1.5 units of PRBCs, with the second unit stopped due to fever. - CT abdomen/pelvis showed gallbladder wall thickening and fluid buildup in both kidneys. - Bleeding stopped spontaneously before medication administration. - GOVERNMENT EMPLOYEE consult performed hysteroscopy with biopsy; cervical opening [...] leiomyoma of uterus Malnutrition of moderate degree ([facility]) 06/15/2018 Nephrolithiasis NSIP (nonspecific interstitial pneumonia) ([facility]) Obesity, Class I, BMI 30-34.9 E66.9 09/03/2017 Osteopenia Overactive bladder Parkinson disease ([facility]) Primary osteoarthritis of first carpometacarpal joint of right hand 08/05/2017 Added automatically from request for surgery [id number] Rectal bleed 09/05/2014 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, Masaoka [...] UNI/BI Tubal ligation LX PARTIAL COLECTOMY 12/23/2017 [facility] lap lysis of adhesions, left oopherectomy, right salpinoopherectomy, left salpingectomy, redo lap sigmoid colectomy w/ressection, lap mobilization of splenic flexure, lap appendectomy PAST SURGICAL HISTORY OF 10/2008 T9-L1 fusion, Dr. Lemon PAST SURGICAL HISTORY OF 10/24/2009 Removed T9-L1, 2 rods and 8 screws, Dr Lemon PAST SURGICAL HISTORY OF 11/2018 Hysteroscopy with D&C and Polypectomy with Burroughs and NephCellmemore Truclear device PICC LINE INSERT/CONSULT 07/11/2018 THYMECTOMY [...] Completed Pneumococcal Vaccine: 50+ Completed Data reviewed [facility] records from 01/22-01/26 1. Vaginal bleeding (N93.9) [...] Drug use: No documented in this encounter [facility] 01-29-2025 History of Present illness Narrative [...] PATIENT PRESENTS WITH AN IMPLANTABLE OR ATTACHED CANE PILER: No RADIOLOGY DEPARTMENT: CT; Exam(s) Completed: Chest. Anesthesia: No PERIPHERAL IV DATA: Not applicable SIGNED BY: RT Jonathon(R) January 29, 2025 3:29 PM documented in this encounter [facility] 01-26-2025 Note Hospitalist Discharg e Summary - [facility] ([facility]) Eren Merchant : 1960 Admit date: 01/22/2025 Discharge date: 01/26/2025 Admitting Physician: Jennie Chang DO Primary Care Physician: Priyanka Smith Recommended Follow-up: Pepito Steve MD [address] [id number] Follow up Disposition: Patient discharged in stable [...] bleeding Saturday 01/20, she initially presented to [facility], was then transferred to [facility] for OB-Home Appliance Tech consult. Hgb baseline ~12, down to 8. She received 1.5 units of PRBC, second unit stopped for fever. CT A/P showed thickened bladder wall and bilateral hydronephrosis. Bleeding stopped on own this morning, before Megace was given. 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 per patient [...] biopsy obtained but D&C was not performed. Home Appliance Tech does not think uterus was cause of [...] non distended EXTREMITIES: moving appropriately Recent Labs 01/24/25 0501/25/25 0320 01/26/25 0457 WBC 10.2 7.1 9.5 HGB 8.9* 10.2* 9.2* PLT 245 353 369 Recent Labs 01/24/25 0501/25/25 0320 01/26/25 0457 NA 135* 138 136 K 3.5 4.3 4.0 CL 109* 110* 111* CO2 21* 20* 18* BUN 19 26* 30* CREATININE 1.37* 1.46* 1.63* GLUCOSE 94 131* 90 No results for input(s): AST, ALT, BILITOT, ALKPHOS in the last 72 hours. No lab exists for component: ALB No results found for: TRIG, HDL, LDLCALC, CHOL No results found for: PHART, PO2ART, [id number] No results for input(s): INR in the [...] Hospital course Narrative Hospitalist Discharge Summary - [facility] ([facility]) Eren Herrera Shonda : 1960 Admit date: 01/22/2025 Discharge date: 01/26/2025 Admitting Physician: Jennie Chang DO Primary Care Physician: Priyanka Smith Recommended Follow-up: Pepito Steve MD [address] [place], [place] [address] [phone] Follow up Disposition: Patient discharged in stable [...] bleeding Saturday 01/20, she initially presented to [facility] ED, was then transferred to [facility] for OB-Home Appliance Tech consult. Hgb baseline ~12, down to 8. She received 1.5 units of PRBC, second unit stopped for fever. CT A/P showed thickened bladder wall and bilateral hydronephrosis. Bleeding stopped on own this morning, before Megace was given. 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 per patient [...] biopsy obtained but D&C was not performed. Home Appliance Tech does not think uterus was cause of [...] non distended EXTREMITIES: moving appropriately Recent Labs 01/24/2551901/25/2531901/26/25456 WBC 10.2 7.1 9.5 [...] CHOL No results found for: PHART, PO2ART, [id number] No results for input(s): INR in the [...] 5:25 PM EDT Consults: IP CONSULT TO BOOKKEEPING MACHINE OPERATOR IP CONSULT TO UROLOGY IP CONSULT TO [...] Your Medications These medications were sent to [facility] - [place], [place] - [address] [place] [address] amoxicillin-clavulanate 875-125 MG tablet ferrous sulfate 325 (65 Fe) MG tablet Signed: Spike Strange DO 01/26/2025, 12:14 PM documented in this encounter [facility] 01-26-2025 Hospital Discharge instructions Spike Strange DO - 01/26/2025 9:12 AM EDT Follow up with PCP within 1 week to review all medications and findings of this admission. Thank you for letting me take part of your care. Wish you a speedy recovery. Call your PCP or go to ED if symptoms return. Thanks, Dr. Spike Strange [facility] [employer] ([facility]) Answering Service documented in this encounter [facility] 01-26-2025 Note Hospitalist Progress Note - [facility] ([id number]) 01/26/2025 9:08 AM [phone]: Please page me for patient care issues. [phone]: Please page [facility] Hospitalist - [facility] for any issues. Subjective and Objective: Admit Date: 01/22/2025 PCP: Priyanka Smith Chief Complaint Patient presents with Vaginal Bleeding Transfer from [place] ER for a GOVERNMENT EMPLOYEE/ONC consult. Started to bleed heavily Wednesday morning going thru approx 70 maxi pads. +clots. Received 1 unit of PRBCs @ [facility] but didn't receive full second unit d/t increased temperature. Per EMS she became hypotensive for 90s/50s and was given a 500cc bolus. Pt has no other complaints, just the bleeding. Adult diet Regular Dietary Orders (From admission, onward) Start Ordered 01/24/25 172 Adult diet Regular Diet effective now Question: Diet type Answer: Regular 01/24/25 1723 I/O last 3 completed shifts: In: 1780 (23.2 mL/kg) [P.O.:1780] Out: - (0 mL/kg) Weight: 76.7 kg @IODETAILS@ @[id number]@ Medications: Continuous Meds[1] Scheduled Meds[2] Recent Labs [...] CHOL No results found for: PHART, PO2ART, [id number] No results for input(s): INR in the [...] bleeding Saturday 01/20, she initially presented to [facility] ED, was then transferred to [facility] for OB-Home Appliance Tech consult. Hgb baseline ~12, down to 8. She received 1.5 units of PRBC, second unit stopped for fever. CT A/P showed thickened bladder wall and bilateral hydronephrosis. Bleeding stopped on own this morning, before Megace was given. 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 per patient [...] biopsy obtained but D&C was not performed. Home Appliance Tech does not think uterus was cause of [...] Present illness Narrative Hospitalist Progress Note - [facility] ([email or web address]) 01/26/2025 9:08 AM [phone]: Please page me for patient care issues. [phone]: Please page [facility] Hospitalist - [facility] for any issues. Subjective and Objective: Admit Date: 01/22/2025 PCP: Priyanka Smith Chief Complaint Patient presents with Vaginal Bleeding Transfer from [place] ER for a GOVERNMENT EMPLOYEE/ONC consult. Started to bleed heavily Wednesday morning going thru approx 70 maxi pads. +clots. Received 1 unit of PRBCs @ [facility] but didn't receive full second unit d/t increased temperature. Per EMS she became hypotensive for 90s/50s and was given a 500cc bolus. Pt has no other complaints, just the bleeding. Adult diet Regular Dietary Orders (From admission, onward) Start Ordered 01/24/25 7612 Adult diet Regular Diet effective now Question: Diet type Answer: Regular 01/24/25 1723 I/O last 3 completed shifts: In: 1780 (23.2 mL/kg) [P.O.:1780] Out: - (0 mL/kg) Weight: 76.7 kg @IODETAILS@ @[id number]@ Medications: Continuous Meds[1] Scheduled Meds[2] Recent Labs 01/24/2551901/25/2531901/26/257 WBC 10.2 7.1 9.5 HGB 8.9* 10.2* 9.2* PLT 245 353 369 Recent Labs 01/24/2551901/25/2531901/26/257 NA 135* 138 136 K 3.5 4.3 4.0 CL 109* 110* 111* CO2 21* 20* 18* BUN 19 26* 30* CREATININE 1.37* 1.46* 1.63* GLUCOSE 94 131* 90 No results for input(s): AST, ALT, BILITOT, ALKPHOS in the last 72 hours. No lab exists for component: ALB No results found for: TRIG, HDL, LDLCALC, CHOL No results found for: PHART, PO2ART, CIT6DHP No results for input(s): INR in the [...] bleeding Saturday 01/20, she initially presented to [facility] ED, was then transferred to [facility] for OB-Home Appliance Tech consult. Hgb baseline ~12, down to 8. She received 1.5 units of PRBC, second unit stopped for fever. CT A/P showed thickened bladder wall and bilateral hydronephrosis. Bleeding stopped on own this morning, before Megace was given. 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 per patient [...] biopsy obtained but D&C was not performed. Home Appliance Tech does not think uterus was cause of [...] Merchant Mobile Relation: Son Preferred language: Bahamian Funeral Arranger needed? No Secondary Emergency Contact: Clementina Merchant Mobile Relation: [id number] Spike Strange DO Division of Hospitalist Medicine Inpatient Medical Services/[facility] [1] [2] amitriptyline, 100 mg, Oral, Nightly carbidopa-levodopa CR, 1 tablet, Oral, TID cefTRIAXone, 1,000 mg, IntraVENous, q24h docusate sodium, 100 mg, Oral, BID [Held by provider] fludrocortisone, 0.1 mg, Oral, Dinner [Held by provider] fludrocortisone, 0.2 mg, Oral, Daily levothyroxine, 75 mcg, Oral, qAM AC Hospitalist Progress Note - [facility] - [facility] ([facility] 01/25/2025 8:26 AM [phone]: Please page me for patient care issues. [phone]: Please page [facility] Hospitalist - [facility] for any issues. Subjective and Objective: Admit Date: 01/22/2025 PCP: Priyanka Smith Chief Complaint Patient presents with Vaginal Bleeding Transfer from [place] [facility] for a GOVERNMENT EMPLOYEE/ONC consult. Started to bleed heavily Wednesday morning going thru approx 70 maxi pads. +clots. Received 1 unit of PRBCs @ [place] but didn't receive full second unit d/t [...] [Urine:2100 (0.8 mL/kg/hr)] Weight: 76.7 kg @IODETAILS@ @[id number]@ Medications: Continuous Meds[1] Scheduled Meds[2] Recent Labs 01/23/2554301/24/2551901/25/25 0320 WBC 14.3* 10.2 7.1 HGB 8.6* 8.9* 10.2* PLT 227 245 353 Recent Labs 01/23/2554301/24/25 0501/25/25 0320 NA 132* 135* 138 K 3.0* 3.5 4.3 CL 105 109* 110* CO2 22* 21* 20* BUN 20 19 26* CREATININE 1.40* 1.37* 1.46* GLUCOSE 99 94 131* No results for input(s): AST, ALT, BILITOT, ALKPHOS in the last 72 hours. No lab exists for component: ALB No results found for: TRIG, HDL, LDLCALC, CHOL No results found for: PHART, PO2ART, XRH2ZUT No results for input(s): INR in the [...] bleeding Saturday 01/20, she initially presented to [place] ED, was then transferred to [facility] for OB-Home Appliance Tech consult. Hgb baseline ~12, down to 8. She received 1.5 units of PRBC, second unit stopped for fever. CT A/P showed thickened bladder wall and bilateral hydronephrosis. Bleeding stopped on own this morning, before Megace was given. 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 per patient [...] biopsy obtained but D&C was not performed. Home Appliance Tech does not think uterus was cause of [...] drug monitoring : # Drug name : Amilcar # Route administered : IV # Method of monitoring : Renal function Extended Emergency Contact Information Primary Emergency Contact: Shelton Merchant Mobile Relation: Son Preferred language: Bahamian Funeral Arranger needed? No Secondary Emergency Contact: Clementina Merchant Mobile Relation: [id number] Spike Strange DO Division of Hospitalist Medicine Inpatient Medical Services/[facility] [1] lactated Ringer's, 50 mL/hr, Last Rate: Stopped (01/24/25 2995) [2] carbidopa-levodopa CR, 1 tablet, Oral, TID [...] from the original note were not included. GOVERNMENT EMPLOYEE Progress Note Date: 01/25/2025 Time: 5:23 AM [...] 01/22/2025 [facility] 1960 [id number] Exam Date/Time: 01/22/2025 15:44 Procedure: CT ABDOMEN [...] QTC Interval 01/22/2025 0 ms Final P [place] 01/22/2025 -1 degrees Final QRS [place] 01/22/2025 -25 degrees Final T Wave [place] 01/22/2025 -49 degrees Final LA Interval 01/22/2025 142 ms Final RBC Morphology [...] to culture collected on: 01/22/2025 at 20:27 ([facility]-[id number]) Staphylococcus aureus 01/22/2025 Not Detected Not Detected [...] Retic Ct Pct 01/24/2025 1.16 % Final < 5% Adults 0.4 - 2.0% SODIUM [...] Active Problems: Post-menopausal bleeding Please page the [facility] OBGYN Call RES group via Secure Chat for any questions or concerns.. GOVERNMENT EMPLOYEE to sign off at this time. Sally Salazar DO 01/25/2025, 5:23 AM [1] Current Facility-Administered Medications: acetaminophen (Tylenol) tablet 1,000 mg, 1,000 mg, Oral, q8h PRN, Tnony Mendoza DO carbidopa-levodopa CR (Sinemet CR) 25-100 [...] Mini-Bag Plus, 4,500 mg, IntraVENous, q6h, Jennie Moschella, DO, Last Rate: 33.3 mL/hr at 01/25/25 0319, 4,500 mg at 01/25/25 0319 polyethylene glycol (PEG) 3350 (Miralax) packet 17 g, 17 g, Oral, Daily PRN, Tonny Mendoza DO Cosigned by Allyson Guerrero MD at 01/25/2025 8:07 PM EDT Vancomycin therapy has been discontinued by Dr. Strange on 01/24/25. Thank you for the consult. Pharmacy signing off for vancomycin dosing. Donna Rivera [facility] Date: 01/24/25 Time: 12:38 PM Nutrition rescreen completed. Chart reviewed. Patient to be monitored and followed by the diet park maintenance technician. Pharmacy to Dose Vancomycin - Progress Note Lab Results Component Value Date CREATININE 1.37 (H) 01/24/2025 BUN 19 01/24/2025 WBC 10.2 01/24/2025 VANCOTROUGH 17.6 01/23/2025 Doses, serum creatinine, and vancomycin levels interfaced automatically to [employer] and data has been analyzed and interpreted. [...] via Secure Chat Hospitalist Progress Note - [facility] - [facility] ([id number]) 01/24/2025 8:27 AM [phone]: Please page me for patient care issues. [phone]: Please page [facility] Hospitalist - [facility] for any issues. Subjective and Objective: Admit Date: 01/22/2025 PCP: Priyanka Smith Chief Complaint Patient presents with Vaginal Bleeding Transfer from [place] ER for a GOVERNMENT EMPLOYEE/ONC consult. Started to bleed heavily Wednesday morning going thru approx 70 maxi pads. +clots. Received 1 unit of PRBCs @ [place] but didn't receive full second unit d/t [...] [Urine:6075 (2.2 mL/kg/hr)] Weight: 76.7 kg @IODETAILS@ @[id number]@ Medications: Continuous Meds[1] Scheduled Meds[2] Recent Labs 01/22/25200801/23/25 0544 01/24/25 0520 WBC 15.4* 14.3* 10.2 HGB 8.9* [...] CHOL No results found for: PHART, PO2ART, DUM3OFT Recent Labs 01/22/25 0409 INR 1.2* No [...] bleeding Saturday 01/20, she initially presented to [place] ED, was then transferred to [facility] for OB-Home Appliance Tech consult. Hgb baseline ~12, down to 8. She received 1.5 units of PRBC, second unit stopped for fever. CT A/P showed thickened bladder wall and bilateral hydronephrosis. Bleeding stopped on own this morning, before Megace was given. 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 per patient request. Patient developed fever and dysuria, urology following already. UA positive for UTI, placed on Zosyn prior. Patient denies any flank pain, frequency, foul smelling urine, or pain with urination. Hospital medicine was consulted for further management of UTI. Urine culture growing E Coli, Vanc stopped. Home Appliance Tech hysteroscopy D&C plus cystoscopy planned for today [...] - Pending the following - antibiotic plan, Home Appliance Tech recs Total time spent (which include face to face and non face to face encounters) in minutes: 52 Toxic drug monitoring/narrow therapeutic index drug monitoring : # Drug name : Zosyn # Route administered : IV # Method of monitoring : Renal function Extended Emergency Contact Information Primary Emergency Contact: Shelton Merchant Mobile Relation: Son Preferred language: Bahamian Funeral Arranger needed? No Secondary Emergency Contact: Clementina Merchant Mobile Relation: [id number]-li-ylr Spike Strange DO Division of Hospitalist Medicine Inpatient Medical Services/[facility] [1] lactated Ringer's, 50 mL/hr, Last Rate: 50 mL/hr (01/23/25 0859) [2] carbidopa-levodopa CR, 1 tablet, Oral, TID docusate sodium, 100 mg, Oral, BID levothyroxine, 75 mcg, Oral, qAM AC megestrol, 20 mg, Oral, BID WC piperacillin-tazobactam, 4,500 mg, IntraVENous, q6h vancomycin, 1,000 mg, IntraVENous, q24h Images from the original note were not included. GOVERNMENT EMPLOYEE Progress Note Date: 01/24/2025 Time: 5:20 AM [...] QTC Interval 01/22/2025 0 ms Final P [place] 01/22/2025 -1 degrees Final QRS [place] 01/22/2025 -25 degrees Final T Wave [place] 01/22/2025 -49 degrees Final LA Interval 01/22/2025 142 ms Final RBC Morphology [...] Active Problems: Post-menopausal bleeding Please page the [facility] OBGYN Call RES group via Secure [...] Candelaria Pineda NP, 100 mg at 01/23/252032 lactated Ringer's infusion, 50 mL/hr, IntraVENous, Continuous, Tonny Mendoza DO, Last Rate: 50 mL/hr at 01/23/25 0859, 50 mL/hr at 01/23/25 0859 levothyroxine (Synthroid, Levoxyl) tablet 75 mcg, 75 mcg, Oral, qAM AC, Tonny Mendoza DO, 75 mcg at 01/24/25 0515 megestrol (Megace) tablet 20 mg, 20 mg, Oral, BID WC, Tonny Mendoza DO, 20 mg at 01/23/25 1754 ondansetron ODT (Zofran-ODT) disintegrating tablet 4 mg, 4 mg, Oral, q8h PRN OR ondansetron (Zofran) injection 4 mg, 4 mg, IntraVENous, q6h PRN, Tonny Mendoza DO piperacillin-tazobactam (Zosyn) 4,500 mg in sodium chloride 0.9 % 100 mL IVPB Mini-Bag Plus, 4,500 mg, IntraVENous, q6h, Jennie Chang DO, Last Rate: 33.3 mL/hr at 01/24/25 0515, 4,500 mg at 01/24/25 0515 polyethylene glycol (PEG) 3350 (Miralax) packet 17 g, 17 g, Oral, Daily PRN, Tonny Mendoza DO vancomycin (Vancocin) 1,000 mg in sodium chloride 0.9 % 250 mL IVPB (Vial Mate), 1,000 mg, IntraVENous, q24h, Jennie Chang DO, 1,000 mg at 01/23/25 2336 Cosigned by Becca Joseph MD at 01/24/2025 7:24 PM EDT Hospitalist Progress Note - [facility] ([facility]) 01/23/2025 7:40 AM [phone]: Please page me for patient care issues. [phone]: Please page [facility] - [place] for any issues. Subjective and Objective: Admit Date: 01/22/2025 PCP: Priyanka Smith Chief Complaint Patient presents with Vaginal Bleeding Transfer from [place] ER for a GOVERNMENT EMPLOYEE/ONC consult. Started to bleed heavily Wednesday morning going thru approx 70 maxi pads. +clots. Received 1 unit of PRBCs @ [place] but didn't receive full second unit d/t [...] [Urine:1725 (0.6 mL/kg/hr)] Weight: 76.7 kg @IODETAILS@ @[id number]@ Medications: Continuous Meds[1] Scheduled Meds[2] Recent Labs [...] CHOL No results found for: PHART, PO2ART, TBO3EEO Recent Labs 01/22/25408 INR 1.2* No results [...] bleeding Saturday 01/20, she initially presented to [place] ED, was then transferred to [facility] for OB-Home Appliance Tech consult. Hgb baseline ~12, down to 8. She received 1.5 units of PRBC, second unit stopped for fever. CT A/P showed thickened bladder wall and bilateral hydronephrosis. Bleeding stopped on own this morning, before Megace was given. 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 per patient [...] 2.9 - Check iron studies - Takes Ita at home for BP support, BP stable [...] - Pending the following - antibiotic plan, Home Appliance Tech recs Total time spent (which include face to face and non face to face encounters) in minutes: 51 Toxic drug monitoring/narrow therapeutic index drug monitoring : # Drug name : Zosyn # Route administered : IV # Method of monitoring : Renal function Extended Emergency Contact Information Primary Emergency Contact: ShondaShelton Mobile Relation: Son Preferred language: Bahamian Funeral Arranger needed? No Secondary Emergency Contact: ShondaClementina Mobile Relation: [id number]-uc-wqn Spike Strange DO Division of Hospitalist Medicine Inpatient Medical Services/[facility] [1] lactated Ringer's, 50 mL/hr, Last Rate: [...] creatinine, and vancomycin levels interfaced automatically to [employer] and data has been analyzed and interpreted. [...] from the original note were not included. GOVERNMENT EMPLOYEE Progress Note Date: 01/23/2025 Time: 5:21 AM [...] 01/22/2025 Patient Name: EREN MERCHANT : 1960 [facility]#: [id number] Exam Date/Time: 01/22/2025 15:44 Procedure: CT ABDOMEN [...] QTC Interval 01/22/2025 0 ms Final P Tang[place] 01/22/2025 -1 degrees Final QRS [place] 01/22/2025 -25 degrees Final T Wave [place] 01/22/2025 -49 degrees Final LA Interval 01/22/2025 142 ms Final RBC Morphology [...] Principal Problem: Vaginal bleeding Please page the [facility] OBGYN Call RES group via Secure [...] WC, Tonny Mendoza DO, 20 mg at 01/22/252100 ondansetron ODT (Zofran-ODT) disintegrating tablet 4 mg, 4 mg, Oral, q8h PRN OR ondansetron (Zofran) injection 4 mg, 4 mg, IntraVENous, q6h PRN, Tonny Mendoza, piperacillin-tazobactam (Zosyn) 4,500 mg in sodium chloride 0.9 % 100 mL IVPB Mini-Bag Plus, 4,500 mg, IntraVENous, q8h, Jennie Chang DO polyethylene glycol (PEG) 3350 (Miralax) packet 17 g, 17 g, Oral, Daily PRN, Tonny Mendoza, vancomycin (Vancocin) 750 mg in sodium chloride [...] creatinine, and vancomycin levels interfaced automatically to [employer] and data has been analyzed and interpreted. [...] is NPO regardless. documented in this encounter [facility] 01-25-2025 Consult note Associated Order (s): IP CONSULT TO NEPHROLOGY [facility] Nephrology Consultation Note Reason for consultation: CKD Chief Complaint: Vaginal bleeding History of Presenting Illness Patient is a 64 y.o. female with PMHx noted below who presented to [facility] ED on 01/22/[address] [facility] [place] with chief complaint listed above. Per report at [facility] ED pt found to be hypotensive and tachycardic. Hgb dropped from baseline ~ 12 to 8. Pt given 1 uPRBC, 2nd unit started but had to be stopped d/t fever. TVUS showed fluid filled endometrium with endometrial thickness of 12.[address] A/P with thickened bladder wall and heterogenous debris. Patient transferred to [facility] ED for VENEER SAMPLE MAKER evaluation. Patient admitted for observation to GOVERNMENT EMPLOYEE service given acute blood loss anemia requiring [...] (mL): 300 mL Dowd: [REMOVED] Urethral Catheter Ezcgqcwq-lnt-Tvzkpx (mL): 1700 mL General: Comfortable appearing, cooperative [...] bladder/high pressure system PVR negative for retention -GOVERNMENT EMPLOYEE input noted -IV abx for UTI per [...] Eren Merchant DATE: January 25, 2025 Office [facility] [phone] Note not finalized until authorized by Attending [...] Resource Strain: Low Risk (12/11/2024) Received from [facility] Overall Financial Resource Strain (CARDIA) Difficulty [...] Physical Activity: Insufficiently Active (12/11/2024) Received from [facility] Exercise Vital Sign Days of Exercise per Week: 3 days Minutes of Exercise per Session: 30 min Stress: No Stress Concern Present (12/11/2024) Received from [facility] [place] [employer] - Occupational Stress Questionnaire Feeling of Stress : Not at all Social Connections: Moderately Isolated (12/11/2024) Received from [facility] Social Connection and Isolation Panel [NHANES] Frequency of Communication with Friends and Family: More than three times a week Frequency of Social Gatherings with Friends and Family: Once a week Attends [employer] [facility]: 1 to 4 times per year [...] by mouth Nightly. AVS from 03/03 from [facility] with Dr. Benitez states: discontinue the elavil for now - we will taper it down. Take 50 mg 4-5 days, then take 25 mg for 4-5 days then stop. (Patient taking differently: Take 100 mg by mouth Nightly. AVS from 03/03 from [facility] with Dr. Benitez states: discontinue the [...] and low glucose diet. Pepito Steve MD [facility] [phone] [facility] 01-25-2025 Consult note Associated Order (s): IP CONSULT TO NEPHROLOGY [facility] Nephrology Consultation Note Reason for consultation: CKD Chief Complaint: Vaginal bleeding History of Presenting Illness Patient is a 64 y.o. female with PMHx noted below who presented to [facility] ED on 01/22/[address] [facility] [place] with chief complaint listed above. Per report at [facility] pt found to be hypotensive and tachycardic. Hgb dropped from baseline ~ 12 to 8. Pt given 1 uPRBC, 2nd unit started but had to be stopped d/t fever. TVUS showed fluid filled endometrium with endometrial thickness of 12.[address] A/P with thickened bladder wall and heterogenous debris. Patient transferred to [facility] ED for VENEER SAMPLE MAKER evaluation. Patient admitted for observation to GOVERNMENT EMPLOYEE service given acute blood loss anemia requiring [...] (mL): 300 mL Dowd: [REMOVED] Urethral Catheter Vjjgwprz-tve-Xyptdt (mL): 1700 mL General: Comfortable appearing, cooperative [...] bladder/high pressure system PVR negative for retention -GOVERNMENT EMPLOYEE input noted -IV abx for UTI per [...] Eren Merchant DATE: January 25, 2025 Office [facility] [phone] Note not finalized until authorized by Attending [...] Resource Strain: Low Risk (12/11/2024) Received from [facility] Overall Financial Resource Strain (CARDIA) Difficulty [...] Physical Activity: Insufficiently Active (12/11/2024) Received from [facility] Exercise Vital Sign Days of Exercise per Week: 3 days Minutes of Exercise per Session: 30 min Stress: No Stress Concern Present (12/11/2024) Received from [facility] [place] [employer]ational [employer] - Occupational Stress Questionnaire Feeling of Stress : Not at all Social Connections: Moderately Isolated (12/11/2024) Received from [facility] Social Connection and Isolation Panel [NHANES] Frequency of Communication with Friends and Family: More than three times a week Frequency of Social Gatherings with Friends and Family: Once a week Attends [facility]: 1 to 4 times per year [...] by mouth Nightly. AVS from 03/03 from [facility] with Dr. Benitez states: discontinue the elavil for now - we will taper it down. Take 50 mg 4-5 days, then take 25 mg for 4-5 days then stop. (Patient taking differently: Take 100 mg by mouth Nightly. AVS from 03/03 from [facility] with Dr. Benitez states: discontinue the [...] and low glucose diet. Pepito Steve MD [facility] [phone] Associated Order(s): IP CONSULT TO INTERNAL MEDICINE Hospital Medicine Consult Patient - Eren Merchant, Age - 64 y.o. - 1960 Room Number - 5124 Consulting - Jennie Chang DO Primary [...] bleeding Saturday 01/20, she initially presented to [facility] ED, was then transferred to [facility] for OB-Home Appliance Tech consult. Hgb baseline ~12, down to 8. She received 1.5 units of PRBC, second unit stopped for fever. CT A/P showed thickened bladder wall and bilateral hydronephrosis. Bleeding stopped on own this morning, before Megace was given. 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 per patient [...] Resource Strain: Low Risk (12/11/2024) Received from [facility] Overall Financial Resource Strain (CARDIA) Difficulty [...] Physical Activity: Insufficiently Active (12/11/2024) Received from [facility] Exercise Vital Sign Days of Exercise per Week: 3 days Minutes of Exercise per Session: 30 min Stress: No Stress Concern Present (12/11/2024) Received from [facility] [place] [employer] - Occupational Stress Questionnaire Feeling of Stress : Not at all Social Connections: Moderately Isolated (12/11/2024) Received from [facility] Social Connection and Isolation Panel [NHANES] Frequency of Communication with Friends and Family: More than three times a week Frequency of Social Gatherings with Friends and Family: Once a week Attends [employer] [facility]: 1 to 4 times per year [...] 0 ms QTC Interval 0 ms P Tang[place] -1 degrees QRS [place] -25 degrees T Wave [place] -49 degrees LA Interval 142 ms Type and Screen Collection [...] - Home - Pending the following - it desktop support technician intervention Total time spent (which include face to face and non face to face encounters) : greater than 35 minutes Extended Emergency Contact Information Primary Emergency Contact: Shelton Merchant Mobile Relation: Son Preferred language: Bahamian Funeral Arranger needed? No Secondary Emergency Contact: Clementina Merchant Mobile Relation: Eobtnqmj-wq-zht Candelaria Pineda NP Division of Hospitalist Medicine Inpatient Medical Services/[facility] [1] Past Medical History: Diagnosis Date Arthritis [...] by mouth Nightly. AVS from 03/03 from [facility] with Dr. Benitez states: discontinue the [...] Ceballos MD Associated Order(s): IP CONSULT TO BOOKKEEPING MACHINE OPERATOR Images from the original note were not included. VENEER SAMPLE MAKER Consult Please page the [facility] OBGYN Call RES group via Secure Chat for any questions or concerns. Patient Name: Eern Merchant Patient : 1960 Room/Bed: [facility] Admission Date/Time: 01/22/2025 3:42 AM Primary Care [...] by mouth Nightly. AVS from 03/03 from [facility] with Dr. Benitez states: discontinue the [...] Social Connections: Moderately Isolated (12/11/2024) Received from [facility] Social Connection and Isolation Panel [NHANES] Frequency of Communication with Friends and Family: More than three times a week Frequency of Social Gatherings with Friends and Family: Once a week Attends [employer] [facility]: 1 to 4 times per year Active Member of Clubs or Organizations: No Attends Club or Organization Meetings: Never Marital Status: Medications: Current Inpatient [Current Medications] [Current Medications] No current facility-administered medications for this encounter. Current Outpatient Medications Medication Sig Dispense Refill amitriptyline (Elavil) 75 MG tablet Take 75 mg by mouth Nightly. AVS from 03/03 from [facility] with Dr. Benitez states: discontinue the [...] due to fever - En route to [facility] ED, patient became hypotensive and was given [...] Patient presents with Vaginal Bleeding Transfer from [place] ER for a GOVERNMENT EMPLOYEE/ONC consult. Started to bleed heavily Wednesday morning going thru approx 70 maxi pads. +clots. Received 1 unit of PRBCs @ [place] but didn't receive full second unit d/t increased temperature. Per EMS she became hypotensive for 90s/50s and was given a 500cc bolus. Pt has no other complaints, just the bleeding. 1. Vaginal bleeding Plan discussed with Dr. Chang, who is agreeable. Please page the [facility] OBGYN Call RES group via Secure Chat for any questions or concerns. Tonny Mendoza DO 01/22/2025, 6:41 AM Cosigned by Jennie Chang DO at 01/22/2025 6:50 AM EDT Associated attestation - Jennie Chang DO - 01/22/2025 6:50 AM EDT See H&P for attestation. documented in this encounter [facility] 01-25-2025 Note Hospitalist Progress Note - [facility] - [facility] ([facility]) 01/25/2025 8:26 AM [phone]: Please page me for patient care issues. : Please page [facility] Hospitalist - [facility] for any issues. Subjective and Objective: Admit Date: 01/22/2025 PCP: Priyanka Smith Chief Complaint Patient presents with Vaginal Bleeding Transfer from [place] ER for a GOVERNMENT EMPLOYEE/ONC consult. Started to bleed heavily Wednesday morning going thru approx 70 maxi pads. +clots. Received 1 unit of PRBCs @ [facility] but didn't receive full second unit d/t [...] [Urine:2100 (0.8 mL/kg/hr)] Weight: 76.7 kg @IODETAILS@ @[id number]@ Medications: Continuous Meds[1] Scheduled Meds[2] Recent Labs 01/23/2554301/24/2551901/25/25 0320 WBC 14.3* 10.2 7.1 HGB 8.6* 8.9* 10.2* PLT 227 245 353 Recent Labs 01/23/2544 01/24/25 0501/25/25 0320 NA 132* 135* 138 [...] CHOL No results found for: PHART, PO2ART, [id number] No results for input(s): INR in the [...] bleeding Saturday 01/20, she initially presented to [place] ED, was then transferred to [facility] for OB-Home Appliance Tech consult. Hgb baseline ~12, down to 8. She received 1.5 units of PRBC, second unit stopped for fever. CT A/P showed thickened bladder wall and bilateral hydronephrosis. Bleeding stopped on own this morning, before Megace was given. 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 per patient [...] biopsy obtained but D&C was not performed. Home Appliance Tech does not think uterus was cause of [...] plan [facility] 01-25-2025 Note GOVERNMENT EMPLOYEE Progress Note Date: 01/25/2025 Time: 5:23 AM [...] QTC Interval 01/22/2025 0 ms Final P [place] 01/22/2025 -1 degrees Final QRS [place] 01/22/2025 -25 degrees Final T Wave [place] 01/22/2025 -49 degrees Final LA Interval 01/22/2025 142 ms (more content not included)... [facility] [facility] 01-24-2025 Procedure note Report called to JUAN Ch on H5 [facility] 01-24-2025 Miscellaneous Notes Report called to JUAN [...] Under Anesthesia, Endometrial Biopsy Surgeon: Dr. Joseph Dairy Farm Manager: Dr. Garces Findings: Diffusely stenotic cervix flush [...] All instrumentation was removed from the vagina. Stout, sponges and instruments were counted times two [...] Attending completion of discharge workflow, Clinical stability, Livestock Haulier recommendations (comment), Procedure (comment) Length of Stay [...] Attending completion of discharge workflow, Clinical stability, Livestock Haulier recommendations (comment) Length of Stay (Days): 1 [...] questions/concerns and otherwise page the urology resident communications instructor if needed Jay Black MD PGY-3 Urology [...] Tonny Mendoza DO documented in this encounter [facility] 01-24-2025 Procedure note Spoke with patient's Son Shelton with update via phone [facility] 01-24-2025 Note Patient: Eren grajeda Procedure Summary Date: 01/24/25 Room / Location: [address] Operating Room Anesthesia Start: 1445 Anesthesia [...] [facility] 01-24-2025 Note Patient: Eren Herbert ivbyron Procedure Summary Date: 01/24/25 Room / Location: [address] Operating Room Anesthesia Start: 1445 Anesthesia [...] factors for PONV (4556F) Patient received at [facility] 2 prophylactic Rx PONV anti-emtic agents of [...] and Staff Patient location during procedure: Procedural Resident/STATISTICAL TYPIST: Mariam Wolf APRN - STATISTICAL TYPIST Performed: STATISTICAL TYPIST Patient Condition Patient position: sniffing MILS maintained [...] Under Anesthesia, Endometrial Biopsy Surgeon: Dr. Joseph Dairy Farm Manager: Dr. Garces Findings: Diffusely stenotic cervix flush [...] All instrumentation was removed from the vagina. Stout, sponges and instruments were counted times two [...] Under Anesthesia, Endometrial Biopsy Surgeon: Dr. Joseph Dairy Farm Manager: Dr. Garces Findings: Diffusely stenotic cervix flush [...] All instrumentation was removed from the vagina. Stout, sponges and instruments were counted times two and noted to be correct. The patient was awakened from anesthesia and brought to the recovery room in stable condition. Dr. Joseph was present for the entire procedure. [employer] Work Phone: 01-24-2025 Note Patient: Eren grajeda Procedure Information Date/Time: 01/24/25 1200 Procedure: HYSTEROSCOPY, CYSTOSCOPY (Vagina ) Location: [address] Operating Room Surgeons: Sam Hirsch MD [...] Attending completion of discharge workflow, Clinical stability, Livestock Haulier recommendations (comment), Procedure (comment) Length of Stay [...] Attending completion of discharge workflow, Clinical stability, Livestock Haulier recommendations (comment), Procedure (comment) Length of Stay (Days): 2 GMLOS: No GMLOS Documented [facility] 01-24-2025 Note Pharmacy to Dose Van comycin - Progress Note Lab Results Component Value Date CREATININE 1.37 (H) 01/24/2025 BUN 19 01/24/2025 WBC 10.2 01/24/2025 VANCOTROUGH 17.6 01/23/2025 Doses, serum creatinine, and vancomycin levels interfaced automatically to [employer] and data has been analyzed and interpreted. [...] DATE: 01/24/25 TIME: 8:41 AM Mathew Holguin, AnastacioD Clinical Pharmacist Available via Secure Chat [facility] [employer] [facility] 01-24-2025 Note Hospitalist Progress Note - [facility] [employer] ([email or web address]) 01/24/2025 8:27 AM [phone]: Please page me for patient care issues. [phone]: Please page [facility] Hospitalist - [facility] for any issues. Subjective and Objective: Admit Date: 01/22/2025 PCP: Priyanka Smith Chief Complaint Patient presents with Vaginal Bleeding Transfer from [place] [facility] for a GOVERNMENT EMPLOYEE/ONC consult. Started to bleed heavily Wednesday morning going thru approx 70 maxi pads. +clots. Received 1 unit of PRBCs @ [place] but didn't receive full second unit d/t [...] [Urine:6075 (2.2 mL/kg/hr)] Weight: 76.7 kg @IODETAILS@ @[id number]@ Medications: Continuous Meds[1] Scheduled Meds[2] Recent Labs 01/22/25200801/23/25 0544 01/24/25 0520 WBC 15.4* 14.3* 10.2 HGB 8.9* [...] CHOL No results found for: PHART, PO2ART, [id number] Recent Labs 01/22/25 0409 INR 1.2* No [...] bleeding Saturday 01/20, she initially presented to [place] ED, was then transferred to [facility] for OB-Home Appliance Tech consult. Hgb baseline ~12, down to 8. She received 1.5 units of PRBC, second unit stopped for fever. CT A/P showed thickened bladder wall and bilateral hydronephrosis. Bleeding stopped on own this morning, before Megace was given. 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 per patient request. Patient developed fever and dysuria, urology following already. UA positive for UTI, placed on Zosyn prior. Patient denies any flank pain, frequency, foul smelling urine, or pain with urination. Hospital medicine was consulted for further management of UTI. Urine culture growing E Coli, Vanc stopped. Home Appliance Tech hysteroscopy D&C plus cystoscopy planned for today [...] included)... [facility] 01-24-2025 Note UROLOGY PROGRESS NOTE PATIENT NAME: Eren Merchant DATE OF : 1960 ADMISSION DATE: 01/22/2025 TODAY'S DATE: 01/24/2025 Subjective Pt was evaluated at bedside in [facility]. Pt reports no fever/chills, n/v, flank pain, or suprapubic pain. Tolerating diet, and ambulating well. No other concerns at this time. Dowd draining yellow Objective VS: BP 119/76 (BP Location: Left arm, Patient Position: Lying) Pulse 91 Temp 36.3 ?C (97.3 ?F) (Temporal) Resp 16 Ht 5' 5.5 (1.664 m) Wt 169 lb (76.7 kg) LMP (LMP Unknown) SpO2 99% BMI 27.70 kg/m? I & O - 24hr: I/O last 3 completed shifts: In: 3741.7 (48.8 mL/kg) [P.O.:2000; IV Piggyback:1741.7] Out: 4375 (57.1 mL/kg) [Urine:4375 (1.6 mL/kg/hr)] Weight: 76.7 kg I/O this shift: In: - Out: 1700 [Urine:1700] Physical Exam: General: Neck: Resp: Abdomen: No acute distress Supple Normal effort, no respiratory distress Soft, non-tender, nondistended : L flank NTTP, R flank NTTP, and no suprapubic tenderness dowd draining yellow Skin: Skin color, texture, turgor normal, no rashes or lesions Labs and Imaging Studies Labs: CBC: Lab Results Component Value Date WBC 10.2 01/24/2025 HGB 8.9 (L) 01/24/2025 HCT 27.0 (L) 01/24/2025 MCV 82.1 01/24/2025 PLT 245 01/24/2025 BMP: Lab Results Component Value Date GLUCOSE 99 01/23/2025 CALCIUM 8.5 (L) 01/23/2025 NA 132 (L) 01/23/2025 K 3.0 (L) 01/23/2025 CO2 22 (L) 01/23/2025 CL 105 01/23/2025 BUN 20 01/23/2025 CREATININE 1.40 (H) 01/23/2025 Imaging Studies: Reviewed Assessment and Plan ASSESSMENT: 64 y.o. female with hx of b/l hydro from outside hospital imaging WBC 10.2 (14.3) Hgb 8.9 (8.6) BMP pending UA 01/22: +LE, WBC/RBC, few bacteria Ucx 01/22: pending Bcx 01/22: negative Abx: Zosyn CT 01/22: mild b/l hydro. 4mm stone R lower kidney. Bladder wall thickening PVR: 49cc PLAN: - NPO for OR today. Plan for joint case with Home Appliance Tech hysteroscopy D&C plus cystoscopy - Ok for diet after surgery - Plan for void trial prior to discharge - No intervention necessary for R renal calculus - Continue to monitor labs and VS - All other cares per specialty teams Denver Callaway MD PGY-3 Urology [facility] 01-24-2025 Note GOVERNMENT EMPLOYEE Progress Note Date: 01/24/2025 Time: 5:20 AM [...] Sitting Pulse: 102 97 97 97 Resp: 20 Temp: 37.4 ?C (99.3 ?F) 36.4 [...] QTC Interval 01/22/2025 0 ms Final P [place] 01/22/2025 -1 degrees Final QRS [place] 01/22/2025 -25 degrees Final T Wave [place] 01/22/2025 -49 degrees Final LA Interval 01/22/2025 142 ms Final RBC Morphology [...] Attending completion of discharge workflow, Clinical stability, Livestock Haulier recommendations (comment) Length of Stay (Days): 1 [...] Attending completion of discharge workflow, Clinical stability, Livestock Haulier recommendations (comment) Length of Stay (Days): 1 GMLOS: No GMLOS Documented T [facility] 01-23-2025 Progress note Formatting of t his note might be different from the original. [place] to take over as attending at this time as infection is primary reason for continued admission. T [facility] 01-23-2025 Note Hospitalist Progress Note - [facility] [employer] ([facility]) 01/23/2025 7:40 AM [phone]: Please page me for patient care issues. [phone]: Please page [facility] Hospitalist - [facility] for any issues. Subjective and Objective: Admit Date: 01/22/2025 PCP: Priyanka Smith Chief Complaint Patient presents with Vaginal Bleeding Transfer from [place] ER for a GOVERNMENT EMPLOYEE/ONC consult. Started to bleed heavily Wednesday morning going thru approx 70 maxi pads. +clots. Received 1 unit of PRBCs @ [place] but didn't receive full second unit d/t [...] [Urine:1725 (0.6 mL/kg/hr)] Weight: 76.7 kg @IODETAILS@ @[id number]@ Medications: Continuous Meds[1] Scheduled Meds[2] Recent Labs [...] CHOL No results found for: PHART, PO2ART, [id number] Recent Labs 01/22/25408 INR 1.2* No results [...] bleeding Saturday 01/20, she initially presented to [place] ED, was then transferred to [facility] for OB-Home Appliance Tech consult. Hgb baseline ~12, down to 8. She received 1.5 units of PRBC, second unit stopped for fever. CT A/P showed thickened bladder wall and bilateral hydronephrosis. Bleeding stopped on own this morning, before Megace was given. 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 per patient [...] - Pending the following - antibiotic plan, Home Appliance Tech recs Total time spent (which include face [...] creatinine, and vancomycin levels interfaced automatically to [employer] and data has been analyzed and interpreted. [...] Duran, PharmD Clinical Pharmacist Available via Secure Chat [facility] 01-23-2025 Note UROLOGY [...] 64 y.o. - 1960 Room Number - 5124 Consulting - Jennie Chang DO [facility] Phys[phone] Date of Admission - 01/22/2025 3:42 AM Hospital Day - 0 Reason for Consult: Medical Management HISTORY OF PRESENT ILLNESS: Eren is a 64 y.o. female with a past medical history of parkinson's, thyroid cancer s/p surgical intervention, and overactive bladder with recurrent UTI. Patient developed heavy vaginal bleeding Saturday 01/20, she initially presented to [place] ED, was then transferred to [facility] for OB-Home Appliance Tech consult. Hgb baseline ~12, down to 8. She received 1.5 units of PRBC, second unit stopped for fever. CT A/P showed thickened bladder wall and bilateral hydronephrosis. Bleeding stopped on own this morning, before Megace was given. 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 per patient [...] Resource Strain: Low Risk (12/11/2024) Received from [facility] Overall Financial Resource Strain (CARDIA) Difficulty of [...] Physical Activity: Insufficiently Active (12/11/2024) Received from [facility] Exercise Vital Sign Days of Exercise per Week: 3 days Minutes of Exercise per Session: 30 min Stress: No Stress Concern Present (12/11/2024) Received from [facility] [employer] [place] [employer] - Occupational Stress Questionnaire Feeling of Stress : Not at all Social Connections: Moderately Isolated (12/11/2024) Received from [facility] Social Connection and Isolation Panel [NHANES] Frequency of Communication with Friends and Family: More than three times a week Frequency of Social Gatherings with Friends and Family: Once a week Attends [employer] Services: 1 to 4 times per year [...] 0 ms QTC Interval 0 ms P [place] -1 degrees QRS [place] -25 degrees T Wave [place] -49 degrees LA Interval 142 ms Type and Screen Collection [...] - Home - Pending the following - it desktop support technician intervention Total time spent (which include face to face and non face to face encounters) : greater than 35 minutes Extended Emergency Contact Information Primary Emergency Contact: Shelton Merchant Mobile Relation: Son Preferred language: Bahamian Funeral Arranger needed? No Secondary Emergency Contact: Clementina Merchant Mobile Relation: [id number] Candelaria Pineda NP Division of Hospitalist Medicine Inpatient Medical Services/[facility] [1] Past Medical History: Diagnosis Date Arthritis [...] Machado MD at 01/23/2025 7:18 AM EDT [facility] 01-22-2025 Note Urology Plan of Care 64 [...] questions/concerns and otherwise page the urology resident communications instructor if needed Jay Black MD PGY-3 Urology [...] questions/concerns and otherwise page the urology resident communications instructor if needed Jay Black MD PGY-3 Urology 01/22/25 8:34 PM [facility] [employer] 01-22-2025 manager programming Note SEP-1 CORE MEASURE DATA SIRS Criteria Sepsis [...] not have Septic Shock. Tonny Mendoza DO [facility] 01-22-2025 Consult note Associated Order (s): IP [...] by mouth Nightly. AVS from 03/03 from [facility] with Dr. Benitez states: discontinue the [...] and anticholinergic vs botox Ricki Ceballos MD [facility] [employer] Phone: 01-22-2025 Consult note Associated Order (s): IP CONSULT TO BOOKKEEPING MACHINE OPERATOR Images from the original note were not included. VENEER SAMPLE MAKER Consult Please page the [facility] OBGYN Call RES group via Secure Chat for any questions or concerns. Patient Name: Eren Merchant Patient : 1960 Room/Bed: [facility] Admission Date/Time: 01/22/2025 3:42 AM Primary Care [...] by mouth Nightly. AVS from 03/03 from [facility] with Dr. Benitez states: discontinue the [...] Social Connections: Moderately Isolated (12/11/2024) Received from [facility] Social Connection and Isolation Panel [NHANES] Frequency of Communication with Friends and Family: More than three times a week Frequency of Social Gatherings with Friends and Family: Once a week Attends [employer]: 1 to 4 times per year Active Member of Clubs or Organizations: No Attends Club or Organization Meetings: Never Marital Status: Medications: Current Inpatient [Current Medications] [Current Medications] No current facility-administered medications for this encounter. Current Outpatient Medications Medication Sig Dispense Refill amitriptyline (Elavil) 75 MG tablet Take 75 mg by mouth Nightly. AVS from 03/03 from [facility] with Dr. Benitez states: discontinue the [...] due to fever - En route to [facility] ED, patient became hypotensive and was given [...] Patient presents with Vaginal Bleeding Transfer from [place] ER for a GOVERNMENT EMPLOYEE/ONC consult. Started to bleed heavily Wednesday morning going thru approx 70 maxi pads. +clots. Received 1 unit of PRBCs @ [facility] but didn't receive full second unit d/t increased temperature. Per EMS she became hypotensive for 90s/50s and was given a 500cc bolus. Pt has no other complaints, just the bleeding. 1. Vaginal bleeding Plan discussed with Dr. Chang, who is agreeable. Please page the [facility] OBGYN Call RES group via Secure Chat for any questions or concerns. Tonny Mendoza DO 01/22/2025, 6:41 AM Cosigned by Jennie Chang DO at 01/22/2025 6:50 AM EDT Associated attestation - Jennie Chang DO - 01/22/2025 6:50 AM EDT See H&P for attestation. [facility] [employer] 01-22-2025 History and physical note Images from the original note were not included. VENEER SAMPLE MAKER H&P Please page the [facility] OBGYN Call RES group via Secure Chat for any questions or concerns. Patient Name: Eren Merchant Patient : 1960 Room/Bed: [facility] Admission Date/Time: 01/22/2025 3:42 AM Primary Care Physician: Priyanka Smith HPI: Eren Merchant is a 64 y.o. female presenting as transfer from [facility] for heavy vaginal bleeding. She [...] Social Connections: Moderately Isolated (12/11/2024) Received from [facility] Social Connection and Isolation Panel [NHANES] Frequency of Communication with Friends and Family: More than three times a week Frequency of Social Gatherings with Friends and Family: Once a week Attends [employer] Services: 1 to 4 times per year [...] due to fever - En route to [facility] ED, patient became hypotensive and was given [...] Patient presents with Vaginal Bleeding Transfer from [place] ER for a GOVERNMENT EMPLOYEE/ONC consult. Started to bleed heavily Wednesday morning going thru approx 70 maxi pads. +clots. Received 1 unit of PRBCs @ [facility] but didn't receive full second unit d/t increased temperature. Per EMS she became hypotensive for 90s/50s and was given a 500cc bolus. Pt has no other complaints, just the bleeding. 1. Vaginal bleeding Plan discussed with Dr. Chang, who is agreeable. Please page the [facility] OBGYN Call RES group via Secure Chat for any questions or concerns. Tonny Freitas Reji, DO 01/22/2025, 6:41 AM [1] Past Medical [...] by mouth Nightly. AVS from 03/03 from [facility] with Dr. Benitez states: discontinue the [...] by mouth Nightly. AVS from 03/03 from [facility] with Dr. Benitez states: discontinue the [...] Chronic interstitial cystitis ILD (interstitial lung disease) ([facility]) Lung nodules NSIP (nonspecific interstitial pneumonitis) ([facility]) Stage 3a chronic kidney disease [...] Merchant is a 64 y.o. presented to [facility] ED for heavy vaginal bleeding. At [facility] ED, found to be hypotensive and tachycardic. Hgb dropped from baseline ~12 to 8. Patient received 1 unit pRBCs, 2nd unit started but had to be stopped due to fever. TVUS showed fluid filled endometrium with endometrial thickness of 12.[address] A/P with thickened bladder wall and heterogenous debris. Patient transferred to [facility] ED for VENEER SAMPLE MAKER evaluation. In ED here, patient slightly tachycardic to 100's. Hgb stable at 8.5. Pelvic exam showed atrophic vagina and stenotic cervix. No blood in vaginal vault. Plan to admit for observation to GOVERNMENT EMPLOYEE service given acute blood loss anemia requiring transfusion. Start Megace 20 mg BID. Will consult urology given abnormal bladder findings. Discussed with patient need for uterine sampling, likely to be done outpatient with primary VENEER SAMPLE MAKER at [facility]. [facility] 01-22-2025 Note -- Attestation signed by Jennie Chang DO at 01/22/2025 6:59 AM Hospital Care (Present): I was present with the resident during the history and exam. I discussed the case with the resident and agree with the findings and plan as documented in the resident's note. Eren Merchant is a 64 y.o. presented to [facility] ED for heavy vaginal bleeding. At [facility] ED, found to be hypotensive and tachycardic. Hgb dropped from baseline ~12 to 8. Patient received 1 unit pRBCs, 2nd unit started but had to be stopped due to fever. TVUS showed fluid filled endometrium with endometrial thickness of 12.[address] A/P with thickened bladder wall and heterogenous debris. Patient transferred to [facility] ED for VENEER SAMPLE MAKER evaluation. In ED here, patient slightly tachycardic to 100's. Hgb stable at 8.5. Pelvic exam showed atrophic vagina and stenotic cervix. No blood in vaginal vault. Plan to admit for observation to GOVERNMENT EMPLOYEE service given acute blood loss anemia requiring transfusion. Start Megace 20 mg BID. Will consult urology given abnormal bladder findings. Discussed with patient need for uterine sampling, likely to be done outpatient with primary VENEER SAMPLE MAKER at [facility]. -- VENEER SAMPLE MAKER H&P Please page the [facility] OBGYN Call RES group via Secure Chat for any questions or concerns. Patient Name: Eren Merchant Patient : 1960 Room/Bed: 37/37 Admission Date/Time: 01/22/2025 3:42 AM Primary Care Physician: Priyanka Smith HPI: Eren Merchant is a 64 y.o. female presenting as transfer from [facility] for heavy vaginal bleeding. She [...] Social Connections: Moderately Isolated (12/11/2024) Received from [facility] Social Connection and Isolation Panel [NHANES] Frequency of Communication with Friends and Family: More than three times a week Frequency of Social Gatherings with Friends and Family: Once a week Attends [employer] Services: 1 to 4 times per year [...] from the original note were not included. VENEER SAMPLE MAKER H&P Please page the [facility] OBGYN Call RES group via Secure Chat for any questions or concerns. Patient Name: Eren Merchant Patient : 1960 Room/Bed: [facility] Admission Date/Time: 01/22/2025 3:42 AM Primary Care Physician: Priyanka Smith HPI: Eren Merchant is a 64 y.o. female presenting as transfer from [facility] for heavy vaginal bleeding. She [...] Social Connections: Moderately Isolated (12/11/2024) Received from [facility] Social Connection and Isolation Panel [NHANES] Frequency of Communication with Friends and Family: More than three times a week Frequency of Social Gatherings with Friends and Family: Once a week Attends [employer] Services: 1 to 4 times per year [...] due to fever - En route to [facility] ED, patient became hypotensive and was given [...] Patient presents with Vaginal Bleeding Transfer from [place] ER for a GOVERNMENT EMPLOYEE/ONC consult. Started to bleed heavily Wednesday morning going thru approx 70 maxi pads. +clots. Received 1 unit of PRBCs @ [place] but didn't receive full second unit d/t increased temperature. Per EMS she became hypotensive for 90s/50s and was given a 500cc bolus. Pt has no other complaints, just the bleeding. 1. Vaginal bleeding Plan discussed with Dr. Chang, who is agreeable. Please page the [facility] O[facility]YN Call RES group via Secure Chat for any questions or concerns. Tonny Mendoza, 01/22/2025, 6:41 AM [1] Past Medical History: [...] by mouth Nightly. AVS from 03/03 from [facility] with Dr. Benitez states: discontinue the [...] by mouth Nightly. AVS from 03/03 from [facility] with Dr. Benitez states: discontinue the [...] Chronic interstitial cystitis ILD (interstitial lung disease) ([facility]) Lung nodules NSIP (nonspecific interstitial pneumonitis) ([facility]) Stage 3a chronic kidney disease [...] Merchant is a 64 y.o. presented to [facility] ED for heavy vaginal bleeding. At [facility] ED, found to be hypotensive and tachycardic. Hgb dropped from baseline ~12 to 8. Patient received 1 unit pRBCs, 2nd unit started but had to be stopped due to fever. TVUS showed fluid filled endometrium with endometrial thickness of 12.[address] A/P with thickened bladder wall and heterogenous debris. Patient transferred to [facility] ED for VENEER SAMPLE MAKER evaluation. In ED here, patient slightly tachycardic to 100's. Hgb stable at 8.5. Pelvic exam showed atrophic vagina and stenotic cervix. No blood in vaginal vault. Plan to admit for observation to GOVERNMENT EMPLOYEE service given acute blood loss anemia requiring transfusion. Start Megace 20 mg BID. Will consult urology given abnormal bladder findings. Discussed with patient need for uterine sampling, likely to be done outpatient with primary VENEER SAMPLE MAKER at [facility]. documented in this encounter [facility] 01-22-2025 Emergency department Note EMERGENCY DEPARTMENT ENCOUNTER Pt Name: Eren Merchant Birthdate 1960 Date of evaluation: 01/21/2025 ED Provider: Soco Avila MD CHIEF COMPLAINT Chief Complaint Patient presents with Vaginal Bleeding Transfer from [place] ER for a GOVERNMENT EMPLOYEE/ONC consult. Started to bleed heavily Wednesday morning going thru approx 70 maxi pads. +clots. Received 1 unit of PRBCs @ [facility] but didn't receive full second unit d/t [...] for vaginal bleeding. Patient was transferred from [facility] for VENEER SAMPLE MAKER consult. Started having heavy bleeding since Wednesday [...] by mouth Nightly. AVS from 03/03 from [facility] with Dr. Benitez states: discontinue the [...] workup consisted of ordering/reviewing lab workup. Paged VENEER SAMPLE MAKER upon patient's arrival to emergency department. VENEER SAMPLE MAKER came and evaluated patient and will be admitting to monitor her bleeding. ED Course as of 01/22/25628Jan 22, 2025 0430 Talked to OB and they will come down to evaluate [TC] 0552 Creatinine(!): 1.83 baseline [TC] 0552 HEMOGLOBIN(!): 8.5 Stable from [facility] [TC] ED Course User Index [TC] Soco [...] Resource Strain: Low Risk (12/11/2024) Received from [facility] Overall Financial Resource Strain (CARDIA) Difficulty of Paying Living Expenses: Not hard at all Food Insecurity: No Food Insecurity (12/11/2024) Received from [facility] Hunger Vital Sign Worried About Running Out of Food in the Last Year: Never true Ran Out of Food in the Last Year: Never true Transportation Needs: No Transportation Needs (12/11/2024) Received from [facility] PRAPARE - Transportation Lack of Transportation (Medical): No Lack of Transportation (Non-Medical): No Physical Activity: Insufficiently Active (12/11/2024) Received from [facility] Exercise Vital Sign Days of Exercise per Week: 3 days Minutes of Exercise per Session: 30 min Stress: No Stress Concern Present (12/11/2024) Received from [facility] [place] [employer] - Occupational Stress Questionnaire Feeling of Stress : Not at all Social Connections: Moderately Isolated (12/11/2024) Received from [facility] Social Connection and Isolation Panel [NHANES] Frequency of Communication with Friends and Family: More than three times a week Frequency of Social Gatherings with Friends and Family: Once a week Attends [facility] [facility]: 1 to 4 times per year [...] 7:04 AM EDT documented in this encounter [facility] 01-22-2025 Physician Emergency department Note EMERGENCY DEPARTMENT ENCOUNTER Pt Name: Eren Merchant Birthdate 1960 Date of evaluation: 01/21/2025 ED Provider: Soco Avila MD CHIEF COMPLAINT Chief Complaint Patient presents with Vaginal Bleeding Transfer from [facility] for a GOVERNMENT EMPLOYEE/ONC consult. Started to bleed heavily Wednesday morning going thru approx 70 maxi pads. +clots. Received 1 unit of PRBCs @ [facility] but didn't receive full second unit d/t [...] for vaginal bleeding. Patient was transferred from [facility] for VENEER SAMPLE MAKER consult. Started having heavy bleeding since Wednesday [...] by mouth Nightly. AVS from 03/03 from [facility] with Dr. Benitez states: discontinue the [...] workup consisted of ordering/reviewing lab workup. Paged VENEER SAMPLE MAKER upon patient's arrival to emergency department. VENEER SAMPLE MAKER came and evaluated patient and will be admitting to monitor her bleeding. ED Course as of 01/22/25628 Mon Jan 22, 2025 0430 Talked to OB and they will come down to evaluate [TC] 05 Creatinine(!): 1.83 baseline [TC] 52 HEMOGLOBIN(!): 8.5 Stable from [place] [TC] ED [...] Resource Strain: Low Risk (12/11/2024) Received from [facility] Overall Financial Resource Strain (CARDIA) Difficulty of Paying Living Expenses: Not hard at all Food Insecurity: No Food Insecurity (12/11/2024) Received from [facility] Hunger Vital Sign Worried About Running Out of Food in the Last Year: Never true Ran Out of Food in the Last Year: Never true Transportation Needs: No Transportation Needs (12/11/2024) Received from [facility] PRAPARE - Transportation Lack of Transportation (Medical): No Lack of Transportation (Non-Medical): No Physical Activity: Insufficiently Active (12/11/2024) Received from [facility] Exercise Vital Sign Days of Exercise per Week: 3 days Minutes of Exercise per Session: 30 min Stress: No Stress Concern Present (12/11/2024) Received from [facility] [place] [employer]ational [employer] - Occupational Stress Questionnaire Feeling of Stress : Not at all Social Connections: Moderately Isolated (12/11/2024) Received from [facility] Social Connection and Isolation Panel [NHANES] Frequency of Communication with Friends and Family: More than three times a week Frequency of Social Gatherings with Friends and Family: Once a week Attends [employer] [facility]: 1 to 4 times per year [...] Toro DO at 01/24/2025 7:04 AM EDT [facility] [employer] Work Phone: 01-22-2025 Discharge summary Note Date/Time January 21, 2025 11:27pm [facility] Medical Records Department [address] [place] [address] Emergency Department Summary 01/21/25 MR#: [id number] Acct: [id number] Name: EREN MERCHANT Rep #:[id number] : 1960 64 From: Michelle Vaughn PCP: [...] Reaction Status Date / Time cetirizine (From [facility]) Allergy Intermediate Rash Verified 01/21/25 19:26 [...] reviewed, Vital signs reviewed Constitutional: please see [facility] HENT: MMM Eyes: Pupils equal round and [...] : No CVAT, pelvic exam performed with lace mender in room showed no obvious abnormalities. No lacerations. Cervical os was closed. No active bleeding. Extremities: No edema Neuro: No new focal neurological deficits, cranial nerves II through XII intact,5/5 strength in all present extremities. Intact sensation to light touch in all present extremities, 2+ reflexes bilateral patella tendons. Skin: No rash or lesions noted MEDICAL DECISION MAKING: Chief Complaint: please see [facility] External records reviewed: Reviewed prior imaging studies: Reviewed CT scan headand pelvis from 03/09. No uterine masses were noted during this evaluation Factors affecting care: As per HPI Social determinants of health: none History obtained from others: family Consults: VENEER SAMPLE MAKER (Dr. Juarez Bryant) discussed giving TXA the patient has heavy bleeding. Discussed giving progesterone if heavy bleeding. Discussed transferring to definitive Home Appliance Tech-oncology care. VENEER SAMPLE MAKER [facility] (Dr. Chang), ER (Dr. Muhammad) [facility] Narrative: Patient was initially tachycardic heart rate [...] These were transfused. Discussed the case with VENEER SAMPLE MAKER here as well as [facility]. Discussed with [facility] OB who noted patient was appropriate [...] Vaginal bleeding 3. Hypotension Dispo: Transfer to [facility] emergency department This note was generated with [employer] dictation software. It may contain incorrectwords, spelling, [...] 86.6 H Lymph % (Auto) 3.3 L [place] % (Auto) 9.3 Eos % (Auto) 0.0 [...] findings discussed above in detail. Reading Location: [id number] Discharge Plan Triage Chief Complaint: Vag Bleeding [...] MD [Primary Care Provider] - Print Language: Bahamian Disposition Disposition: Acute Care Hospital Discharge Location: [facility] What to do if you have Problems For any increased pain, shortness of breath, bleeding, nausea or vomiting, chestpain, or any unexpected problems, contact your Primary Care Provider. Call [facility] ([phone]) or report to the closest Emergency Room. Call 911 if necessary. 01/21/252326 <Electronically signed by Michelle Mosher DO> Cosigner Signature (if applicable): CC: Dr. Gonzalo Day MD ~ Signed [facility] Work Phone: 1(448) 444-157009-07-2025 Discharge summary [facility] Medical Records Department [address] [place] [address] Emergency Department Summary 01/21/25 MR#: [id number] Acct: [id number] Name: EREN MERCHANT Rep #:[id number] : 1960 64 From: Michelle Vaughn PCP: [...] Reaction Status Date / Time cetirizine (From [facility]) Allergy Intermediate Rash Verified 01/21/25 19:26 [...] : No CVAT, pelvic exam performed with lace mender in room showed no obvious abnormalities. No [...] none History obtained from others: family Consults: VENEER SAMPLE MAKER (Dr. Juarez Bryant) discussed giving TXA the patient has heavy bleeding. Discussed giving progesterone if heavy bleeding. Discussed transferring to definitive Home Appliance Tech-oncology care. VENEER SAMPLE MAKER [facility] (Dr. Chang), ER (Dr. Muhammad) MDM Narrative: [...] These were transfused. Discussed the case with VENEER SAMPLE MAKER here as well as [facility]. Discussed with [facility] OB who noted patient was appropriate [...] Vaginal bleeding 3. Hypotension Dispo: Transfer to [facility] emergency department This note was generated with [employer] dictation software. It may contain incorrectwords, spelling, [...] 86.6 H Lymph % (Auto) 3.3 L [place] % (Auto) 9.3 Eos % (Auto) 0.0 [...] findings discussed above in detail. Reading Location: [facility] Discharge Plan Triage Chief Complaint: Vag Bleeding [...] MD [Primary Care Provider] - Print Language: Bahamian Disposition Disposition: Acute Care Hospital Discharge Location: [facility] What to do if you have Problems For any increased pain, shortness of breath, bleeding, nausea or vomiting, chestpain, or any unexpected problems, contact your Primary Care Provider. Call [facility] ([phone]) or report tothe closest Emergency Room. Call 911 if necessary. 01/21/25 6300 Cosigner Signature (if applicable): CC: Dr. Gonzalo Day MD ~ Signed [facility]09-07-2025 Radiology Diagnostic study note [facility] Imaging Services [address] [place], [place] [address] Transvaginal Non- MR#: [id number] Acct: [id number] Name: EREN MERCHANT Rep #: [id number] : 1960 F 64 From: Herminio Garcia MD PCP: Dr. Gonzalo Day MD Status: REG ER Study:Transvaginal Non- Date of Exam: 01/21/25 Exam# [id number] Ordering Dr: Frida Mosher DO PROCEDURE: TRANSVAGINAL [...] ovary is visualized.. US/Transvaginal Non- IMPRESSION: 1. [place] tubular shaped fluid-filled structure in the left [...] 4. Questionable subcentimeter uterine fibroid. Reading Location: [id number] CC: Dr. Gonzalo Day MD; Dr. Michelle Mosher DO ~ Fermenter Operator: Signed [facility]09-07-2025 Radiology Diagnostic study note [facility] Imaging Services [address] [place] [address] Abdomen/Pelvis W IV Cont ONLY MR#: [id number] Acct: [id number] Name: EREN MERCHANT Rep #: [id number] : 1960 F 64 From: Chris Guthrie MD PCP: Dr. Gonzalo Day MD Status: REG ER Study:Abdomen/Pelvis W IV Cont ONLY Date of E xam: 01/21/25 Exam# [id number] Ordering Dr: Frida Mosher DO PROCEDURE: ABDOMEN/PELVIS [...] ONLY IMPRESSION: Clinical correl (more content not included)...[facility] 01-10-2025 Instructions* Patient Instructions* Jasmyne Day MD [...] you have concerns sooner. [facility] History of Present illness Narrative* Jasmyne Day MD - 01/10/2025 8:55 AM EDT Chief Complaint Patient presents with: Blood Pressure Check: 2 week follow up Recording using Farfetch software for draft documentation of the visit was discussed with the patient/authorized manufacturers service representative; all questions welcomed and answered. Patient/authorized manufacturers service representative agreed to proceed HPI Eren Merchant [...] leiomyoma of uterus Malnutrition of moderate degree ([facility]) 06/15/2018 Nephrolithiasis NSIP (nonspecific interstitial pneumonia) ([facility]) Obesity, Class I, BMI 30-34.9 E66.9 09/03/2017 Osteopenia Overactive bladder Parkinson disease ([facility]) Primary osteoarthritis of first carpometacarpal joint of right hand 08/05/2017 Added automatically from request for surgery [id number] Rectal bleed 09/05/2014 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, Masaoka [...] UNI/BI Tubal ligation LX PARTIAL COLECTOMY 12/23/2017 [facility] lap lysis of adhesions, left oopherectomy, right [...] Rarely Drug use: No [facility] Instructions* Patient Instructions* Mathew Yang Jr., MD - 01/09/2025 2:26 PM EDT Counseled patient on increasing fluids, avoiding salt, avoiding caffeine, avoiding large portions of animal fat/meats at one time and increasing citrates in diet. [facility] History of Present illness Narrative* Mathew [...] Date Value 08/17/2024 Negative 03/22/2020 Negative Specific Vesper, Ur (no units) Date Value 08/17/2024 1.019 [...] leiomyoma of uterus Malnutrition of moderate degree ([facility]) 06/15/2018 Nephrolithiasis NSIP (nonspecific interstitial pneumonia) ([facility]) Obesity, Class I, BMI 30-34.9 E66.9 09/03/2017 Osteopenia Overactive bladder Parkinson disease ([facility]) Primary osteoarthritis of first carpometacarpal joint of right hand 08/05/2017 Added automatically from request for surgery [id number] Rectal bleed 09/05/2014 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, Masaoka [...] Rarely Drug use: No [facility] Radiology Diagnostic study note [facility] Imaging Services [address] [place] [address] Abdomen Single View MR#: [id number] Acct: [id number] Name: EREN MERCHANT Rep #: [id number] : 1960 F 64 From: Umang Ricci MD PCP: Dr. Gonzalo Day MD Status: REG CLI Study:Abdomen Single View Date of Exam: 12/29/24 Exam# [id number] Ordering Dr: Hilary Soto PROCEDURE: ABDOMEN SINGLE [...] constipation. Other findings as noted. Reading Location: [id number] CC: Dr. Gonzalo Day MD; KAUSHAL Alas ~ Fermenter Operator: Signed [facility] Work Phone: 1(515) 707-114608-15-2025 [facility] Gastroenterology [address] [place] [address] OFFICE VISIT Date of Service: 12/29/24 MR#: [id number] Acct: [id number] Name: EREN MERCHANT Rep #: [id number] : 1960 Provider: KAUSHAL Alas Age/Sex: 64/F Location: [facility] Status: Signed Intake Vital Signs 12/22/24 12:21 Height 5 ft 5 in Intake Visit Reasons: ABORTED COLONOSCOPY -IMPACTED Chief Complaint: abd pain Allergies cetirizine (From [facility]) Allergy (Intermediate, Verified 12/22/24 12:18) Rash [...] examined colon. - No specimens collected OV 8.25 patient has had just 1 bowel movement [...] Const General: cooperative, healthy appearing and comfortable [facility] Head: normal to inspection Eyes General: appearance [...] 0823 frank EASLEY> Date _ Hilary EASLEY Cosigner Signature: Date (if applicable) CC: ~ [place] [address]-13-2025 History of Present illness Narrative* Peyton Diaz, HAILE.SOLAR PANEL TECHNICIAN - 12/27/2024 2:29 PM EDT This is [...] leiomyoma of uterus Malnutrition of moderate degree ([facility]) 06/15/2018 Nephrolithiasis NSIP (nonspecific interstitial pneumonia) ([facility]) Obesity, Class I, BMI 30-34.9 E66.9 09/03/2017 Osteopenia Overactive bladder Parkinson disease ([facility]) Primary osteoarthritis of first carpometacarpal joint of right hand 08/05/2017 Added automatically from request for surgery [id number] Rectal bleed 09/05/2014 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, Masaoka [...] UNI/BI Tubal ligation LX PARTIAL COLECTOMY 12/23/2017 [facility] lap lysis of adhesions, left oopherectomy, right salpinoopherectomy, left salpingectomy, redo lap sigmoid colectomy w/ressection, lap mobilization of splenic flexure, lap appendectomy PAST SURGICAL HISTORY OF 10/2008 T9-L1 fusion, Dr. Lemon PAST SURGICAL HISTORY OF 10/24/2009 Removed T9-L1, 2 rods and 8 screws, Dr Lemon PAST SURGICAL HISTORY OF 11/2018 Hysteroscopy with D&C and Polypectomy with Burroughs and NephCellmemore Truclear device PICC LINE INSERT/CONSULT 07/11/2018 THYMECTOMY [...] as needed for worsening/no improvement. Peyton Diaz APRN.CNP Recording using Farfetch software for draft documentation of the visit was discussed with the patient/authorized manufacturers service representative; all questions welcomed and answered. Patient/authorized manufacturers service representative agreed to proceed [1] Social History Tobacco Use Smoking status: Never Passive exposure: Never Smokeless tobacco: Never Tobacco comments: No one in household smokes. Smoker in childhood home. Vaping Use Vaping status: Never Used Substance Use Topics Alcohol use: Yes Comment: Rarely Drug use: No [facility] Instructions* Patient Instructions* Peyton Diaz APRN.CNP - 12/27/2024 2:25 PM EDT Increase the florinef to pills in the morning and one in the evening. Recheck in 2 weeks. [facility] History and physical note Author Aditya Friend [facility] Note Date/Time December 22, 2024 12: 26pm [facility] Medical Records Department [address] [place] [address] History & Physical Exam 12/22/24 1224 MR#: [id number] Acct: [id number] Name: EREN MERCHANT Rep #:[id number] : 1960 64 From: [facility] Friend DO PCP: Dr. Gonzalo Day MD Status :[facility] Location: [place] [address] HPI - General General Date of Admission: [...] Reaction Status Date / Time cetirizine (From Zyrtec) Allergy Intermediate Rash Verified 12/22/24 12:18 erythromycin [...] Gonzalo Day MD; Aditya Cota DO~ Signed [facility] Work Phone: 1(315) 220-715508-08-2025 Consult note [facility] Medical Records Department [address] [place] [address] Anesthesia Postop Eval I 12/22/24 1358 MR#: [id number] Acct: [id number] Name: EREN MERCHANT Rep #:[id number] : 1960 64 From: Ana Pardo CRNA PCP: Dr. Gonzalo Day MD [place] :[place] [facility] [place] Race: C Location: [place] [address] Anesthesia: Postop Eval I Current Vital Signs Temperature: 97.9 F Pulse Rate: 84 Blood Pressure: 123/55 Respiratory Rate: 20 Pulse Ox: 100 Assessment Airway patent: Yes Spontaneous unlabored respirations: Yes nausea: No Vomiting: No Anesthesia Complication: No Fluid Hydration Crystalloid volume administer (ml): 200 Total IV fluid infused: 200 Progress Note Anesthesia document: Postop Eval 1 completed: Yes 12/22/24 1359 a STATISTICAL TYPIST> Date _ Ana Pardo STATISTICAL TYPIST Cosigner Signature: Date CC: ~ Signed [facility]08-08-2025 Procedure note [facility] Medical Records Department [address] [place] [address] Colonoscopy Report MR#: [id number] Acct: [id number] Name: EREN MERCHANT Rep #:[id number] : 1960 64 From: Aditya Cota DO PCP: Dr. Gonzalo Day MD Status :[place] [facility] Patient Name: Eren Merchant Procedure Date: 12/22/2024 [...] was poor. Procedure Code(s): --- Professional --- 47909, 53, Colonoscopy, flexible; diagnostic, including collection of specimen(s) by brushing or washing, when performed (separate procedure) CPT copyright 2021 [employer]. All rights reserved. The codes documented in this report are preliminary and upon web operations specialist review may be revised to meet current compliance requirements. Aditya Cota DO 12/22/2024 1:55:32 PM This report has been signed electronically. Number of Addenda: 0 Note Initiated On: 12/22/2024 1:36 PM 12/22/24 1355 Date _ Aditya Orozcoignbyron Signature: Date (if indicated) CC: Dr. Gonzalo Day MD; Aditya Cota DO ~ Date Dictated: 12/22/24 1336 Date Transcribed: Fermenter Operator: RF Signed [facility]08-08-2025 Procedure note [facility] Medical Records Department [address] [place] [address] Provation Physician Letter MR#: [id number] Acct: [id number] Name: EREN MERCHANT Rep #:[id number] : 1960 64 From: Aditya Cota DO PCP: Dr. Gonzalo Day MD Status :[place] [facility] 12/22/2024 Gonzalo Day Re : Colonoscopy procedure [...] ~ Date Dictated: 12/22/24 1336 Date Transcribed: Fermenter Operator: RF Signed [facility]08-08-2025 Evaluation note* Diagnosis Onset Date Resolution Status Admit Date Abdominal pain acute December 11:52am Constipation acute December 22, 2024 11:52am Irritable bowel syndrome wit h constipation acute December 22, 2024 11:52am Constipation acute December 29, 2024 7:52am Irritable bowel syndrome wit h constipation acute December 29 7:52am Abdominal pain acute February 5:53am Constipation acute February 16, 2025 5:53am Irritable bowel syndrome wit h constipation acute February 16 5:53am Constipation acute February 8:22am GERD (gastroesophageal reflu x disease) chronic March 02 8:22am [facility] Work Phone: 1(308) 929-299508-08-2025 Consult note [facility] Medical Records Department [address] [place] [address] Pre-Anesthesia Evaluation 12/22/24 1306 MR#: [id number] Acct: [id number] Name: EREN MERCHANT Rep #:[id number] : 1960 64 From: Estevan Crowder MD PCP: Dr. 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 [...] am of surgery: Levothyroxine PONV PONV - tool 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: PONV - tool 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 Female Yes 12/19/24 12:42 HX of Motion [...] 12/22/24 12:21 Respiratory Assessment Respiratory Assessment - tool 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: Respiratory Tract Infection Hx - tool 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 Hx Respiratory Tract Infection No 12/19/24 12:42 STOP Sleep Apnea STOP Sleep Apnea - tool 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: STOP Sleep Apnea - tool 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 Hx Hypertension No 12/19/24 12:42 Hx Sleep [...] Tobacco Use History Tobacco Use History - tool 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: Tobacco Use History - tool 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 Tobacco Use Smoking Status Never smoker 12/19/24 12:42 Hx Tobacco Use No 12/19/24 12:42 Years Smoking Packs Smoked per Day Smoking Cessation Date was within the last 15 years Hx Smoking Cessation Date Hx Smoking Cessation Counseling Hematologic Medial History Hematologic Hx - tool 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: 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 Hx of Blood Transfusion No 12/19/24 12:42 [...] confused, unrespo /Reproduction History /Reproductive History - tool 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: /Reproductive Hx- tool 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 Hx Now Gestational Age (in weeks): EDC: Hx Hx Para Hx Section SAB No 06/02/24 12:12 Active Medications Active Medications: Current Medications Generic Name Dose Route Start Last Admin Trade Name Freq PRN Reason Stop Dose Admin Lactated Ringer's 1,000 mls @ 15 mls/hr 12/22/24 12:00 12/22/24 12:20 IV 15 mls/hr .Q48H HSANTA Administration PFSH Medical History Kidney stones Thyroid [...] mg tablet 100 mg PO QHS 07/07/24 0812/08 History carbidopa 25 mg-levodopa 100 mg 1 [...] Reaction Status Date / Time cetirizine (From [facility]) Allergy Intermediate Rash Verified 12/22/24 12:18 [...] MD Cosigner Signature: Date CC: ~ Signed [facility]08-08-2025 History and physical note [facility] Medical Records Department [address] [place] [address] History & Physical Exam 12/22/24 1224 MR#: [id number] Acct: [id number] Name: EREN MERCHANT Rep #:[id number] : 1960 64 From: Aditya Friend DO PCP: Dr. Gonzalo Day MD Status :[facility] Location: [place] [address] HPI - General General Date of Admission: [...] mg tablet 100 mg PO QHS 07/07/24 08/12/08 History carbidopa 25 mg-levodopa 100 mg 1 [...] Reaction Status Date / Time cetirizine (From [facility]) Allergy Intermediate Rash Verified 12/22/24 12:18 [...] Signs Vital Signs Vital Signs: 12/22/24 12:21 08/08/25 12:21 Temperature 98.6 F Temperature Source Temporal [...] Gonzalo Day MD; Aditya Cota DO~ Signed [facility]08-08-2025 [facility] Medical Records Department [address] [place] [id number] History Physical Exam 12/22/24 1224 MR#: [id number] Acct: [id number] Name: EREN MERCHANT Rep #: [id number] : 1960 64 From: Aditya Cota DO PCP: Dr. Gonzalo Day MD Status:[facility] Location: [place] [address] HPI - General General Date of Admission: [...] Reaction Status Date / Time cetirizine (From [facility]) Allergy Intermediate Rash Verified 12/22/24 12:18 erythromycin base AdvReac Intermediate Diarrhea Verified 12/22/24 12:18 azithromycin AdvReac Mild Diarrhea Verified 12/22/24 12:18 Family History Mother Thyroid disorder Hypertension Father Heart disease Hypertension COPD (chronic obstructive pulmonary disease) Surgical History S/P laparoscopic appendectom (more content not included)...[facility]07-30-2025 Instructions* Patient Instructions* Cyndi Naik APRN.CNP - 12/13/2024 8:08 AM EDT - Take Florinef 0.2 mg (two 0.1 mg tablets) once daily with breakfast; prescription sent to [facility]. - Continue drinking 2 liters of fluid [...] and review your symptoms. documented in [facility] encounter[facility] History of Present illness Narrative* Cyndi Naik APRN.CNP - 12/13/2024 7:38 AM EDT 12/13/2024 Patient presents with: Recheck Recording using Farfetch software for draft documentation of the visit was discussed with the patient/authorized manufacturers service representative; all questions welcomed and answered. Patient/authorized manufacturers service representative agreed to proceed SUBJECTIVE: This is [...] in the hospital in February; discontinued by pathologist Dr. Harrison May. - Dr. Steve, based in [facility] [place]. - Ordered waist-high compression stockings and increased [...] leiomyoma of uterus Malnutrition of moderate degree ([facility]) 06/15/2018 Nephrolithiasis NSIP (nonspecific interstitial pneumonia) ([facility]) Obesity, Class I, BMI 30-34.9 E66.9 09/03/2017 Osteopenia Overactive bladder Parkinson disease ([facility]) Primary osteoarthritis of first carpometacarpal joint of right hand 08/05/2017 Added automatically from request for surgery [id number] Rectal bleed 09/05/2014 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, Masaoka [...] and BP response to medication adjustment. Cyndi BahlogHAILE shafer.SOLAR PANEL TECHNICIAN Prescription instructions reviewed with patient as applicable. Patient advised if symptoms do not improve or if symptoms worsen sooner, to contact their primary care physician. Potential red flag symptoms discussed with the patient. Reviewed appropriate action plan to take if red flag symptoms occur. Patient agreeable to treatment plan. 00101 OVERALL COMPLEXITY Problem Complexity: Moderate Data Level: [...] test performed by another physician/other qualified health landcare officer: - Discussion of management or test interpretation with external physician/other qualified health landcare officer/appropriate source: Data complexity level: Minimal; minimal or no complexity requirements met RISKS SECTION: Prescription drug management (increase Florinef dose) - Moderate complexity Non-pharmacologic management (compression stockings, fluid intake, safety education) - Minimal complexity Home BP monitoring - Minimal complexity Risks complexity level (highest from above): Moderate documented in this encounterU[facility]07-23-2025 Note[facility]07-23-2025 History of Present illness Narrative* Charis Lopez APRN.CNM - 12/06/2024 8:03 AM EDT Workforce Investment Act Career Manager offered: Patient declines. Eren is a 64 year old who presents for an annual gynecologic exam without complaints. Justmoved in with son and family. Postmenopausal: Yes since [id number] HRT use: Vaginal estrogen cream Still get [...] Multiple0 Live Births0 Comment: 2 vaginal deliveries Home Appliance Tech History LMP: 01/07/2011, Postmenopausal Age at Menarche: 11 Age at First : Age at Menopause: Home Appliance Tech History Comments: Sexual Activity: Not Currently; Male [...] (HCC) 06/15/2018 Nephrolithiasis NSIP (nonspecific interstitial pneumonia) ([facility]) Obesity, Class I, BMI 30-34.9 E66.9 09/03/2017 Osteopenia Overactive bladder Parkinson disease ([facility]) Primary osteoarthritis of first carpometacarpal joint of right hand 08/05/2017 Added automatically from request for surgery [id number] Rectal bleed 09/05/2014 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, Masaoka [...] UNI/BI Tubal ligation LX PARTIAL COLECTOMY 12/23/2017 [facility] lap lysis of adhesions, left oopherectomy, right salpinoopherectomy, left salpingectomy, redo lap sigmoid colectomy w/ressection, lap mobilization of splenic flexure, lap appendectomy PAST SURGICAL HISTORY OF 10/2008 T9-L1 fusion, Dr. Lmeon PAST SURGICAL HISTORY OF 10/24/2009 Removed T9-L1, [...] discussed with the Patient or Patient's Authorized Waste Examiner. As applicable, any other physician, advance practice provider, medical student, or other health professional student that will be observing or involved in the sensitive examination for educational or training purposes was discussed with the Patient or Authorized Waste Examiner. The Patient or Authorized Waste Examiner has agreed to proceed with the sensitive [...] year or sooner as needed [employer] 12/22/24 Friend Charis Plotts, RIPSAWYER.CNM documented in this encounterUc [facility]07-16-2025 Instructions* Patient Instructions* Jasmyne Day MD - 11/29/2024 10:06 AM EDT - Florinef (fludrocortisone) 0.1 mg by mouth once daily each morning; prescription sent to [facility] - Drink at least 2 liters [...] how you re doing documented in this encounterUc [facility]07-16-2025 NoteOhio[facility]07-16-2025 History of Present illness Narrative* Jasmyne Day MD - 11/29/2024 9:41 AM EDT Chief Complaint Patient presents with: Blood Pressure: Saw Neurology on 11/16/24. Concerns of Orthostatic hypotension. States her BP [id number] points. Some intermittent dizziness with standing. Recording using Farfetch software for draft documentation of the visit was discussed with the patient/authorized manufacturers service representative; all questions welcomed and answered. Patient/authorized manufacturers service representative agreed to proceed HPI Eren Merchant [...] fludrocortisone in the hospital for orthostatic hypotension; pathologist discontinued it, but Eren has taken it [...] leiomyoma of uterus Malnutrition of moderate degree ([facility]) 06/15/2018 Nephrolithiasis NSIP (nonspecific interstitial pneumonia) ([facility]) Obesity, Class I, BMI 30-34.9 E66.9 09/03/2017 Osteopenia Overactive bladder Parkinson disease ([facility]) Primary osteoarthritis of first carpometacarpal joint of right hand 08/05/2017 Added automatically from request for surgery [id number] Rectal bleed 09/05/2014 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, Masaoka [...] UNI/BI Tubal ligation LX PARTIAL COLECTOMY 12/23/2017 [facility] lap lysis of adhesions, left oopherectomy, right salpinoopherectomy, left salpingectomy, redo lap sigmoid colectomy w/ressection, lap mobilization of splenic flexure, lap appendectomy PAST SURGICAL HISTORY OF 10/2008 T9-L1 fusion, Dr. Lemon PAST SURGICAL HISTORY OF 10/24/2009 Removed T9-L1, 2 rods and 8 screws, Dr Lemon PAST SURGICAL HISTORY OF 11/2018 Hysteroscopy with D&C and Polypectomy with Burroughs and NephCellmemore Truclear device PICC LINE INSERT/CONSULT 07/11/2018 THYMECTOMY [...] . Jasmyne Day MD documented in this encounterUc [facility]07-03-2025 Instructions* Patient Instructions* Gemma Roberts APRN.SOLAR PANEL TECHNICIAN - 11/16/2024 8:56 AM EDT It was a pleasure to see you today. We addressed the following diagnoses: Parkinsonism, unspecified parkinsonism type ([facility]) Constipation, unspecified constipation type (primary encounter [...] prn No follow-ups on file. Your current [facility] Movement Disorders Team includes: Primary Movement Disorders Neurologist: Bogdan Roberts MD Primary Movement Disorders Advanced Practice Provider: Gemma Roberts CNP If there are any concerns before your next visit, please call or you can send a message through Val[employer]. You can also now schedule and select appointments through [employer]. Gemma Roberts APRN.SOLAR PANEL TECHNICIAN documented in this encounterUc [facility] Hospital07-03-2025 NoteOhio[facility]07-03-2025 History of Present illness Narrative* Gemma Roberts APRN.CNP - 11/16/2024 7:57 AM EDT [facility] - FOLLOW UP EVALUATION Priyanka Smith MD [address] [facility] [address] Dear Priyanka Smith MD: I had the pleasure of seeing Ms. Merchant for follow-up today. As you know she is a 64 year old right-handed female with a history of tremor since 2021. She is seen with her ugzcwsbq-xy-zhu, Clementina. 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 Time spent 67 min on the day of service, which included preparing to see the patient, [id number] patient care, completing clinical documentation, obtaining and/or reviewing separately obtained history, performing a medically appropriate examination, and counseling and educating the patient/family/caregiver. Gemma Roberts APRN.SOLAR PANEL TECHNICIAN documented in this encounterUc [facility]07-01-2025 Telephone encounter Note * Telephone Encounter - Geni Palmer RN - 11/14/2024 5:30 PM EDT Called Patient. Verified name and . Notified pt that Elavil had been reordered, sent to preferred pharmacy on file. No further questions or concerns. Geni Palmer RN November 14, 2024 5:32 PM [place] [address]-01-2025 Miscellaneous Notes* Telephone Encounter - Geni Palmer [...] daily at bedtime. Authorizing Provider: CLEMENTINA ESPOSITO APRN.SOLAR PANEL TECHNICIAN * Telephone Encounter - Luciano Garcia RN [...] week thereafter. - Prescription sent to [facility] in [place] Future appointments: Future Appointments Date Time Provider Department Center 11/16/2024 8:00 AM Gemma Roberts, 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 NRMDN [facility] 12/06/2024 8:15 AM Charis Lopez APRN.CNM OBGYWM [facility] 12/20/2024 8:00 AM XR [facility] MOB RGMOB [facility] 01/09/2025 2:30 PM Mathew Yang Jr., MD UROLMNely [facility] 01/29/2025 9:[address] [facility] WSTR [facility]STAT[facility] 02/06/2025 9:00 AM Becca Mir 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 PULMWS [facility] 02/08/2025 1:00 PM Wiley Benitez MD GYURWP [place] 07/16/2025 12:00 PM Priyanka Smith MD [facility] Appointment scheduled: No follow-up visit currently scheduled. [...] has 1 pill left. documented in this encounterUc [facility] Hospital07-01-2025 Telephone encounter Note * Telephone Encounter - Clementina Esposito APRN.SAMIR - 11/14/2024 5:23 PM EDT I discontinued to Atarax and reordered Elavil. The following approved medication requests have been transmitted electronically. Requested Prescriptions Signed Prescriptions Disp Refills amitriptyline (ELAVIL) 100 mg tablet 30 tablet 5 Sig: Take 1 tablet by mouth daily at bedtime. Authorizing Provider: CLEMENTINA ESPOSITO APRN.SOLAR PANEL TECHNICIAN [facility]07-01-2025 Telephone encounter Note* Telephone Encounter - Tonny Holliday RN - 11/14/2024 3:54 PM EDT MC message addressed in TE 11/14/2024. Tonny Holliday RN November 14, 2024 3:54 PM [facility]07-01-[facility]25 Miscellaneous Notes* Telephone Encounter - Tonny Holliday RN - 11/14/2024 3:54 PM EDT MC message addressed in TE 11/14/2024. Tonny Holliday RN November 14, 2024 3:54 PM documented in this encounterUc [facility] Hospital07-01-2025 Telephone encounter Note * Telephone Encounter [...] week thereafter. - Prescription sent to [facility] in [place] Future appointments: Future Appointments Date Time Provider Department Center 11/16/2024 8:00 AM Gemma Roberts APRN.SOLAR PANEL TECHNICIAN NRMDN [facility] 12/06/2024 8:15 AM Charis Lopez, RIPSAWYER.CNM OBGYWM [facility] 12/20/2024 8:00 AM XR [facility] 01/09/2025 2:30 PM Mathew Yang Jr., MD UROCHAPIN [facility] 01/29/2025 9:[address] [facility] WSTR (I-STAT) RCTWS [facility] 02/06/2025 9:00 AM Becca Mir APRN.SOLAR PANEL TECHNICIAN PULMWS [facility] 02/08/2025 1:00 PM Wiley Benitez MD GYUR [place] 07/16/2025 12:00 PM Priyanka Smith MD FAMWS [facility] Appointment scheduled: No follow-up visit currently scheduled. Action taken: Refill request routed to clinician Luciano Garcia RN November 14, 2024 11:40 AM [facility]07-01-2025 Telephone encounter Note* Telephone Encounter - [...] She says she has 1 pill left. [facility] Evaluation note* Diagnosis Onset Date Resolution Status Admit Date Abdominal pain acute November 08, 2024 7:46am Constipation acute November 08, 2 025 7:46am Abdominal pain acute December 11:52am Constipation acute December 22, 2024 11:52am Irritable bowel syndrome wit h constipation acute December 22, 2024 11:52am Constipation acute December 29, 2024 7:52am Irritable bowel syndrome wit h constipation acute December 29 7:52am Abdominal pain acute February 5:53am Constipation acute February 16, 2025 5:53am Irritable bowel syndrome wit h constipation acute February 16 5:53am [facility] Work Phone: 1(921) 596-419406-25-2025 [facility] [address] [place] [address] OFFICE VISIT Date of Service: 11/08/24 MR#: [id number] Acct: [id number] Name: EREN MERCHANT Rep #: [id number] : 1960 Provider: KAUSHAL Alas Age/Sex: 64/F Location: [facility] Status: Signed Intake Vital Signs 06/06/24 14:36 [...] mcg (1,000 unit) tablet (Vitamin D3) geriatric ingybqmz-deyi-oydf 1 ea PO DAILY 06/28/18 History (Complete Senior tablet) mycophenolate mofetil 500 mg 1,000 mg PO DAILY 11/08/24 History tablet (CellCept) levothyroxine 100 mcg [...] 11/08/24 0832 frank EASLEY> Date _ Hilary Rosarioignbyron Signature: Date (if applicable) CC: ~ [facility]06-17-2025 NoteOhio[facility] Hospital06-17-2025 History of Present illness Narrative* Leandro [...] CARE PLAN OF CARE UPDATE: Assessment: Eren Merchant is discontinued from Physical Therapy services due to Patient/Client declining further intervention.. Patient was seen for 5 visits from Start of Care Date: 09/29/23 to 10/31/2024 and treatment included: Therapeutic exercise, Manual therapy, and Self-penitentiary management. Goals for Episode of Care: established 09/29/23 Pt will be able to stand for 15 minutes without having to sit down due to quad fatigue for improved standing tolerance to cook and talk to people in the community and at home [place] in home exercise program. Increased strength of [...] 1521 Leandro Vargas PT documented in this encounterUc West Chester Hospital06-17-2025 History of Present illness Narrative* German Grubbs, 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 - 10/31/2024 9:00 AM EDT Female Pelvic Medicine & Reconstructive Surgery Follow-Up Recording using Farfetch software for draft documentation of the visit was discussed with the patient/authorized manufacturers service representative; all questions welcomed and answered. Patient/authorized manufacturers service representative agreed to proceed CHIEF COMPLAINT: Eren [...] the PFSH obtained by others. German Grubbs APRN.SOLAR PANEL TECHNICIAN Workforce Investment Act Career Manager offered: Patient declines. SENSITIVE EXAM: The sensitive examination was discussed with the Patient or Patient's Authorized Waste Examiner. As applicable, any other physician, advance practice provider, medical student, or other health professional student that will be observing or involved in the sensitive examination for educational or training purposes was discussed with the Patient or Authorized Waste Examiner. The Patient or Authorized Waste Examiner has agreed to proceed with the sensitive [...] week thereafter. - Prescription sent to [facility] in [place]. Medical Decision Making: Problems: Moderate: 2+ stable chronic illnesses Data: Unique test result(s) reviewed: 1 Risk: Moderate: Drug management Medical Decision Making Level: 4 - Moderate German Grubbs APRN.SOLAR PANEL TECHNICIAN documented in this encounterUc West Chester Hospital06-17-2025 NoteOhio[facility]06-12-2025 History of Present illness Narrative* Karen Alcantara MD - 10/26/2024 9:30 AM EDT Images from the original note were not included. . [facility] [place] Note Patient name: Eren Merchant PCP: Priyanka [...] hydronephrosis due to nephrolithiasis and MANJIT. At [facility] with me, the plan was to repeat [...] DATE OF EXAM: Jun 12 2024 11:43AM [facility] 0541 - CT CHEST WO IVCON [...] leiomyoma of uterus Malnutrition of moderate degree ([facility]) 06/15/2018 Nephrolithiasis NSIP (nonspecific interstitial pneumonia) ([facility]) Obesity, Class I, BMI 30-34.9 E66.9 09/03/2017 Osteopenia Overactive bladder Primary osteoarthritis of first carpometacarpal joint of right hand 08/05/2017 Added automatically from request for surgery [id number] Rectal bleed 09/05/2014 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, Masaoka [...] UNI/BI Tubal ligation LX PARTIAL COLECTOMY 12/23/2017 [facility] lap lysis of adhesions, left oopherectomy, right salpinoopherectomy, left salpingectomy, redo lap sigmoid colectomy w/ressection, lap mobilization of splenic flexure, lap appendectomy PAST SURGICAL HISTORY OF 10/2008 T9-L1 fusion, Dr. Lemon PAST SURGICAL HISTORY OF 10/24/2009 Removed T9-L1, 2 rods and 8 screws, Dr Lemon PAST SURGICAL HISTORY OF 11/2018 Hysteroscopy with D&C and Polypectomy with Burroughs and Effective Measure Truclear device PICC LINE INSERT/CONSULT 07/11/2018 THYMECTOMY [...] mg twice daily Karen Alcantara MD [facility] [place] documented in this encounterUc [facility] Hospital06-12-2025 NoteOhio[facility]06-03-2025 History of Present illness Narrative* Eufemia Anglin PT, DPT - 10/17/2024 11:07 AM EDT Program_ID:[id number] Access Code: [email or web address] URL: [email or web address] Date: 10-17-2024 Prepared By: Leandro Vargas Program [...] 2: Seated hip march 4# at ankles 1a89-17 3: STS with 11# med ball, first [...] Eufemia Anglin PT, DPT documented in this encounterUc West Chester Hospital06-03-2025 NoteOhio[facility]06-03-2025 Telephone encounter Note* Telephone Encounter - Carmita Avila - 10/17/2024 7:56 AM EDT Pt requesting refill as follows: Last FUV September 2024 with Rika. [facility] Requested Prescriptions Pending Prescriptions Disp Refills carbidopa-levodopa (SINEMET 25-100) 25-100 mg per tablet 270 tablet 3 Sig: Take 1 tablet by mouth three times a day. carbidopa (LODOSYN) 25 mg tab 270 tablet 3 Sig: Take 1 tablet by mouth three times a day. Upon approval, script will be sent electronically to the patient's pharmacy. Carmita Payton, City Constable III [facility]06-03-2025 Miscellaneous Notes* Telephone Encounter - Carmita Avila - 10/17/2024 7:56 AM EDT Pt requesting refill as follows: Last FUV September 2024 with Rika. [facility] Requested Prescriptions Pending Prescriptions Disp Refills carbidopa-levodopa (SINEMET 25-100) 25-100 mg per tablet 270 tablet 3 Sig: Take 1 tablet by mouth three times a day. carbidopa (LODOSYN) 25 mg tab 270 tablet 3 Sig: Take 1 tablet by mouth three times a day. Upon approval, script will be sent electronically to the patient's pharmacy. Carmita Payton, City Constable III documented in this encounterUc West Chester Hospital05-28-2025 Evaluation note* Diagnosis Onset Date Resolution Status Admit Date Abdominal pain acute October 11, 2024 9:53am Candidiasis of esophagus acute October 11, 2024 9:53am Constipation acute October 11 9:53am GERD (gastroesophageal reflu x disease) chronic October 11, 2024 9 :53am Abdominal pain acute November 08, 2024 7:46am Constipation acute November 08, 025 7:46am [facility] Work Phone: 1(459) 889-255505-28-2025 Evaluation note* Diagnosis Onset Date Resolution Status [...] h constipation acute December 22, 2024 11:52am [facility] Work Phone: 1(656) 181-839305-28-2025 Evaluation note* Diagnosis Onset Date Resolution Status [...] wit h constipation acute December 29 7:52am [facility] Work Phone: 1(436) 415-444505-27-2025 History of Present illness Narrative* Leandro Vargas, PT - 10/10/2024 11:36 AM EDT Program_ID:[id number] Access Code: [email or web address] URL: [email or web address] Date: 10-10-2024 Prepared By: Leandro Vargas Program [...] 1140 Leandro Vargas PT documented in this encounterUc West [facility] Hospital05-27-2025 NoteOhio[facility]05-19-2025 Note[facility]05-19-2025 History of Present illness Narrative* Leandro [...] 827 Leandro Vargas PT documented in this encounterUc West Chester Hospital05-15-2025 NoteOhio[facility]05-15-2025 History of Present illness Narrative* Leandro [...] people in the community and at home [place] in home exercise program. Increased strength of [...] Planned: 4 Planned Treatment Interventions: Therapeutic exercise (07104), Neuromuscular re- education (35417), Manual therapy (52819), Self-penitentiary management (73628), Gait Training (67222) PLAN FOR NEXT VISIT: LE strengthening and [...] 999 Leandro Vargas PT documented in this encounterUc West [facility] Hospital05-09-2025 Instructions* Patient Instructions* Rika Adam APRN.CNP - 09/22/2024 1:46 PM EDT It was [...] any questions or concerns or send a [employer] Follow up as scheduled with Gemma November 16 Movement Disorders Medication Schedule: Medications AM Lunch PM Sinemet 25/100 1 1 1 No follow-ups on file. If there are any concerns before your next visit, please call or you can send a message through [employer]. You can also now schedule and select appointments through [employer]. Rika Adam APRN.SAMIR documented in this encounterUc West [facility] Hospital05-09-2025 NoteOhio[facility]05-09-2025 History of Present illness Narrative* Rika AdamHAILE.SOLAR PANEL TECHNICIAN - 09/22/2024 1:37 PM EDT [facility] - FOLLOW UP EVALUATION Priyanka Smith MD [address] [place] [address] Dear Priyanka Smith MD: I had the [...] the visit: Medications AM Lunch PM Sinemet 1 1 1 Other Movement Disorder Prior [...] also has a prescription for Florinef that pathologist gave her with parameters of when to [...] mg 1 prn Level of service : 48281 (40-68 min). Time spent 51 min on the day of service, which included preparing to see the patient, rzrj-ae-vehm patient care, completing clinical documentation, obtaining and/or [...] Sincerely, Rika Adam APRN.SAMIR documented in this encounterUc West [facility] Hospital05-08-2025 Telephone encounter Note * Telephone Encounter - Joy Arvizu LPN - 09/21/2024 8:49 AM EDT AMAN 06/20/24 Patient phones requesting refills as follows: Requested Prescriptions Pending Prescriptions Disp Refills mycophenolate Mofetil (CELLCEPT) 500 mg tablet 60 tablet 5 Sig: Take 1 tablet by mouth two times a day. Please review and advise. Joy Arvizu LPN [facility]05-08-2025 Miscellaneous Notes* Telephone Encounter - Joy Arvizu LPN - 09/21/2024 8:49 AM EDT AMAN 06/20/24 Patient phones requesting refills as follows: Requested Prescriptions Pending Prescriptions Disp Refills mycophenolate Mofetil (CELLCEPT) 500 mg tablet 60 tablet 5 Sig: Take 1 tablet by mouth two times a day. Please review and advise. Joy Arvizu LPN documented [facility] Telephone encounter Note * Telephone Encounter - Caitlyn Garcia LPN - 09/11/2024 3:30 PM EDT Patient updated and voiced understanding. Caitlyn Garcia LPN [facility]04-28-[facility]25 Miscellaneous Notes* Telephone Encounter - Caitlyn Garcia LPN - 09/11/2024 3:30 PM EDT Patient updated and voiced understanding. Caitlyn Garcia LPN * Telephone Encounter - Caitlyn Garcia LPN - 09/11/2024 3:27 PM EDT ----- Message from Jasmyne Day MD sent at 09/11/2024 2:54 PM EDT ----- Xray of hip negative for fracture. documented in this encounterU[facility]04-28-[facility] Telephone encounter Note * Telephone Encounter - Caitlyn Garcia LPN - 09/11/2024 3:27 PM EDT ----- Message from Jasmyne Day MD sent at 09/11/2024 2:54 PM EDT ----- Xray of hip negative for fracture. [facility]04[facility] History of Present illness Narrative* Lauryn [...] PATIENT PRESENTS WITH AN IMPLANTABLE OR ATTACHED CANE PILER: No RADIOLOGY DEPARTMENT: General X-ray: Exam(s) Completed: Spine X-Ray(s): Lumbar AP / LAT / L5-S1 Pelvis X-Ray: Pelvis with Hip Right Skull X-Ray facial bones PERIPHERAL IV DATA: Not applicable SIGNED BY: RT Eloy(R) September 11, 2024 1:02 PM documented in this encounterUc [facility]04-28-2025 Note[facility]04-28-2025 Instructions* Patient Instructions* Jasmyne Day MD [...] headinjury or severe pain. documented in this encounterUc [facility]04-28-2025 NoteOhio[facility]04-28-2025 History of Present illness Narrative* Jasmyne [...] lower back since. Described as constant sharp, azzuveimk98/10, without radiation. Exacerbated going from sitting to [...] leiomyoma of uterus Malnutrition of moderate degree ([facility]) 06/15/2018 Nephrolithiasis NSIP (nonspecific interstitial pneumonia) ([facility]) Obesity, Class I, BMI 30-34.9 E66.9 09/03/2017 Osteopenia Overactive bladder Primary osteoarthritis of first carpometacarpal joint of right hand 08/05/2017 Added automatically from request for surgery [id number] Rectal bleed 09/05/2014 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, Masaoka [...] UNI/BI Tubal ligation LX PARTIAL COLECTOMY 12/23/2017 [facility] lap lysis of adhesions, left oopherectomy, right [...] above - CONSULT TO PHYSICAL THERAPY Jasmyne Dya MD documented in this encounterU[facility]04-18-2025 Telephone encounter Note * Telephone Encounter - Leyda Morfin LPN - 09/01/2024 10:07 AM EDT Left detailed message on identifiable voicemail. [facility]04-[facility] Miscellaneous Notes* Telephone Encounter - Leyda Morfin LPN - 09/01/2024 10:07 AM EDT Left detailed message on identifiable voicemail. * Telephone Encounter - Juwan Land APRN.CNP - 09/01/2024 7:43 AM EDT Please let the patient know that her TSH was normal. Continue with current dose of levothyroxine. Juwan Land APRN.CNP documented in this encounterUc [facility]04-18-2025 Telephone encounter Note * Telephone Encounter - Juwan Land APRN.CNP - 09/01/2024 7:43 AM EDT Please let the patient know that her TSH was normal. Continue with current dose of levothyroxine. Juwan Land APRN.CNP [facility]04-17-2025 NoteOhio[facility]04-17-2025 History of Present illness Narrative* Priyanka [...] her earsand having balance issues. Follows with [facility], and they have not found anything [...] leiomyoma of uterus Malnutrition of moderate degree ([facility]) 06/15/2018 Nephrolithiasis NSIP (nonspecific interstitial pneumonia) ([facility]) Obesity, Class I, BMI 30-34.9 E66.9 09/03/2017 Osteopenia Overactive bladder Primary osteoarthritis of first carpometacarpal joint of right hand 08/05/2017 Added automatically from request for surgery [id number] Rectal bleed 09/05/2014 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, Masaoka [...] UNI/BI Tubal ligation LX PARTIAL COLECTOMY 12/23/2017 [facility] lap lysis of adhesions, left oopherectomy, right [...] Moderate Priyanka Smith MD documented in this encounterU[facility]04-17-2025 NoteOhio[facility]04-17-2025 History of Present illness Narrative* Latha Cuevas MD - 08/31/2024 9:53 AM EDT [facility] Follow up note Consulted by: Priyanka Smith MD Chief Complaint: 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, terminal carman use of systemic steroids HPI: This is [...] leiomyoma of uterus Malnutrition of moderate degree ([facility]) 06/15/2018 Nephrolithiasis NSIP (nonspecific interstitial pneumonia) ([facility]) Obesity, Class I, BMI 30-34.9 E66.9 09/03/2017 Osteopenia Overactive bladder Primary osteoarthritis of first carpometacarpal joint of right hand 08/05/2017 Added automatically from request for surgery [id number] Rectal bleed 09/05/2014 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, Masaoka [...] UNI/BI Tubal ligation LX PARTIAL COLECTOMY 12/23/2017 [facility] lap lysis of adhesions, left oopherectomy, right [...] with concerns for possible AI due to terminal carman steroid therapy PLAN: 1. 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) Due [...] Low Latha Cuevas MD Endocrinology Associate Staff [facility] Endocrinology and Metabolism [place] [phone] documented in this encounterUc [facility]04-07-2025 History of Present illness Narrative* Tracey Fernando Mammo Yessy - 08/21/2024 9:10 AM EDT Radiology Service [...] PATIENT PRESENTS WITH AN IMPLANTABLE OR ATTACHED CANE PILER: No RADIOLOGY DEPARTMENT: Mammography PERIPHERAL IV DATA: Not applicable SIGNED BY: Idalia Levino Yessy August 21, 2024 9:35 AM documented in this encounterUc [facility] Hospital04-07-2025 NoteOhio[facility]04-04-2025 Telephone encounter Note* Telephone Encounter - Maira Chen APRN.SOLAR PANEL TECHNICIAN - 08/18/2024 12:16 PM EDT Patient was contacted. No uti symptoms today Urine culture in process I will send the results to her when final Report to the ER with fever, chills, back pain Patient verbalized understanding [facility]04-04-[facility] Miscellaneous Notes* Telephone Encounter - Maira Chen APRN.CNP - 08/18/2024 12:16 PM EDT Patient was contacted. No uti symptoms today Urine culture in process I will send the results to her when final Report to the ER with fever, chills, back pain Patient verbalized understanding documented in this encounterU[facility]03-31-2025 History of Present illness Narrative* Sarah [...] PATIENT PRESENTS WITH AN IMPLANTABLE OR ATTACHED CANE PILER: No RADIOLOGY DEPARTMENT: Ultrasound PERIPHERAL IV DATA: Not applicable SIGNED BY: Sarah Berg RDMS August 14, 2024 2:19 PM documented in this encounterUc [facility]03-31-2025 NoteOhio[facility]03-26-2025 NoteOhio[facility]03-26-2025 History of Present illness Narrative* Maira Chen APRN.CNP - 08/09/2024 2:17 PM EDT Eren Merchant [...] right ESWL 01/[address] Hung SORENSON: Height 165.1 cm (5' 5), weight 77.1 [...] leiomyoma of uterus Malnutrition of moderate degree ([facility]) 06/15/2018 Nephrolithiasis NSIP (nonspecific interstitial pneumonia) ([facility]) Obesity, Class I, BMI 30-34.9 E66.9 09/03/2017 Osteopenia Overactive bladder Primary osteoarthritis of first carpometacarpal joint of right hand 08/05/2017 Added automatically from request for surgery [id number] Rectal bleed 09/05/2014 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, Masaoka [...] UNI/BI Tubal ligation LX PARTIAL COLECTOMY 12/23/2017 [facility] lap lysis of adhesions, left oopherectomy, right salpinoopherectomy, left salpingectomy, redo lap sigmoid colectomy w/ressection, lap mobilization of splenic flexure, lap appendectomy PAST SURGICAL HISTORY OF 10/2008 T9-L1 fusion, Dr. Lemon PAST SURGICAL HISTORY OF 10/24/2009 Removed T9-L1, 2 rods and 8 screws, Dr Lemon PAST SURGICAL HISTORY OF 11/2018 Hysteroscopy with D&C and Polypectomy with Burroughs and Effective Measure Truclear device PICC LINE INSERT/CONSULT 07/11/2018 THYMECTOMY [...] bilateral stent placement and removal 02/2024 at [facility] -ct reviewed from 03/09 - US KIDNEY/BLADDER - UA DIP, URINE (POC) - BACTERIAL CULTURE, URINE 2. Nephrolithiasis - ICD9: 592.0, ICD10: N20.0 - US KIDNEY/BLADDER Patient is instructed to schedule a follow up as scheduled with Dr. Yang . Maira Chen APRN.SOLAR PANEL TECHNICIAN documented in this encounterUc [facility]03-25-2025 Telephone encounter Note * Telephone Encounter - Tess Persaud MA - 08/08/2024 12:02 PM EDT See pt message with an update. Tess Persaud MA [facility]03-25-2025 Miscellaneous Notes* Telephone Encounter - Tess Persaud MA - 08/08/2024 12:02 PM EDT See pt message with an update. Tess Persaud MA documented in this encounterUc [facility] Hospital03-25-2025 Miscellaneous Notes* Telephone Encounter - Abdulkadir Villalobos RN - 08/08/2024 11:51 AM EDT Kirsten Pts nurse EMY called in and was asking if provider had ordered a bedside commode for the Pt. Itold I couldn't see where it was ordered. She states their PHOTONICS ENGINEERING TECHNICIAN will order it, but she didn't want amria antonia putting in a duplicate order. documented in this encounterUc [facility] Hospital03-25-2025 Telephone encounter Note * Telephone Encounter - Abdulkadir Villalobos RN - 08/08/2024 11:51 AM EDT Kirsten Pts nurse EMY called in and was asking if provider had ordered a bedside commode for the Pt. Itohector I couldn't see where it was ordered. She states their PHOTONICS ENGINEERING TECHNICIAN will order it, but she didn't want maria antonia putting in a duplicate order. [facility]03-[facility] Telephone encounter Note* Telephone Encounter - Kirk Santiago - 08/07/2024 8:45 AM EDT 08/07/24 Patient has been scheduled w/ for 02/08/25. Kirk Santiago [facility]03-24-2025 Miscellaneous Notes* Telephone Encounter - Kirk Santiago - 08/07/2024 8:45 AM EDT 08/07/24 Patient has been scheduled w/ for 02/08/25. Kirk Santiago documented in this encounterUc [facility] Hospital03-21-2025 History of Present illness Narrative* German Grubbs, 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 - 08/04/2024 2:30 PM EDT Images from [...] Total Time Spent: 15 minutes German Grubbs APRN.SAMIR documented in this encounterUc [facility] Hospital03-21-2025 NoteHNO ID: [id number] Author: GERMAN GRUBBS APRN.SOLAR PANEL TECHNICIAN Service: ? Author Type: Nurse Practitioner Type: [...] of 75mg tablets - f/u 6 weeks Erenyumiko Merchant has consented to this telephone encounter. [...] Total Time Spent: 15 minutes German Grubbs APRN.[facility]03-20-2025 Instructions* Patient Instructions* Bogdan Roberts MD [...] Lunch PM Sinemet 25/100 1 1 1 Return at or around: 11/03/24 If there are any concerns before your next visit, please call or you can send a message through [employer]. You can also now schedule and select appointments through [employer]. Bogdan Roberts MD documented in this encounterUc [facility] Hospital03-20-2025 NoteOhio[facility]03-20-2025 History of Present illness Narrative* Bogdan Roberts MD - 08/03/2024 10:38 AM EDT [facility] - FOLLOW UP EVALUATION The patient consented to the use of ambient [email or web address] software for draft documentation of the visit consistent with [facility] s Notice of Privacy Practices. Priyanka Smith MD [address] [facility] [address] Dear Priyanka Smith MD: I had the [...] 31%. She continues regular follow-ups with her pathologist and frequent blood work. She reports stiffness [...] tardive dyskinesia Stage 3b chronic kidney disease ([facility]) Plan 08/03/2024 Visit: # Parkinsonism, unspecified Parkinsonism [...] Lunch PM Sinemet 25/100 1 1 1 Return at or around: 11/03/24 Thank you for allowing me to be part of the clinical care of this patient! I look forward to continued participation in the patient s care with you. Please do not hesitate to call with any questions. Sincerely, Bogdan Roberts MD documented in this encounterUc [facility] Hospital03-17-2025 Instructions* Patient Instructions* Juwan Land APRN.CNP - 07/31/2024 11:19 AM EDT We discussed your generalized muscle pain (myalgia) and discomfort in your arms, shoulders, back, and ribs: - I have prescribed a 6-day course of steroids to help reduce inflammation and alleviate your symptoms. Please take this medication with food and in the morning to avoid jitteriness or difficulty sleeping. This prescription has been sent to your preferred pharmacy, [facility]. - You may continue taking Tylenol as [...] office for further evaluation. documented in this encounterUc [facility] Hospital03-17-2025 History of Present illness Narrative* Juwan [...] on Florinef, which was discontinued by her pathologist, Dr. Steve, due to episodes of elevated [...] improving. This note was partly generated using [employer] voice recognition dictation and may contain some misspelled or inaccurate words missed on review. The patient consented to the use of Farfetch software for draft documentation of the visit consistent with [facility] Notice of Privacy Practices. documented in this encounterUc [facility] Hospital03-17-2025 NoteOhio[facility]03-17-2025 Telephone encounter Note* Telephone Encounter - [...] rash, fever, numbness, weakness Protocols used: Arm [id number]-SV [facility]03-17-2025 Miscellaneous Notes* Telephone Encounter - Nelli [...] rash, fever, numbness, weakness Protocols used: Arm [id number] documented in this encounterUc [facility] Hospital02-24-2025 Instructions* Patient Instructions* Jacqueline Valadez APRN.CNP - 07/10/2024 10:07 AM EST Get fasting labs completed by September 23 Continue to take all medication as prescribed Keep scheduled appointments with specialists Continue to eat a well balanced diet and stay hydrated Mammogram due this year Message the office when ready to labs documented in this encounterUc [facility] Hospital02-24-2025 History of Present illness Narrative* Jacqueline [...] of the patient in the medical record. Education Spec Pulmonology Endocrinology Medical/Family history review Reviewed and [...] (HCC) 06/15/2018 Nephrolithiasis NSIP (nonspecific interstitial pneumonia) ([facility]) Obesity, Class I, BMI 30-34.9 E66.9 09/03/2017 Osteopenia Overactive bladder Primary osteoarthritis of first carpometacarpal joint of right hand 08/05/2017 Added automatically from request for surgery [id number] Rectal bleed 09/05/2014 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, Masaoka [...] UNI/BI Tubal ligation LX PARTIAL COLECTOMY 12/23/2017 [facility] lap lysis of adhesions, left oopherectomy, right [...] discussed and patient voices understanding. Jacqueline Valadez APRN.SOLAR PANEL TECHNICIAN This note was partially generated using [employer] voice recognition system. Note was reviewed for accuracy. There may be minor misspellings or grammar miscues with [employer] voice recognition. documented in this encounterUc [facility] Hospital02-24-2025 NoteOhio[facility] Hospital02-21-2025 Evaluation note* Diagnosis Onset Date Resolution Status Admit Date Candidiasis of esophagus acute July 07, 2024 9:16am [facility] Work Phone: 1(256) 193-667202-10-2025 NoteOhiohealth Shelby Hospital02-10-2025 History of Present illness Narrative* Raul Juan MD - 06/26/2024 8:54 AM EST Raul Juan MD Department of Orthopaedics Orthopaedics [address] [facility] [address] Dept: [phone] Dept June 26, 2024 CHIEF COMPLAINT: New [...] joint spaces are preserved. No osseous erosion. Fermenter Operator[facility] Transcribe Date/Time: Jun 28 2024 5:20A Dictated [...] leiomyoma of uterus Malnutrition of moderate degree ([facility]) 06/15/2018 Nephrolithiasis NSIP (nonspecific interstitial pneumonia) ([facility]) Obesity, Class I, BMI 30-34.9 E66.9 09/03/2017 Osteopenia Overactive bladder Primary osteoarthritis of first carpometacarpal joint of right hand 08/05/2017 Added automatically from request for surgery [id number] Rectal bleed 09/05/2014 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, Masaoka [...] UNI/BI Tubal ligation LX PARTIAL COLECTOMY 12/23/2017 [facility] lap lysis of adhesions, left oopherectomy, right [...] anxiety) Raul Juan MD documented in this encounterUc [facility] Hospital02-04-2025 Telephone encounter Note * Telephone Encounter - Juwan Land APRN.CNP - 06/20/2024 2:31 PM EST The following approved medication requests have been transmitted electronically. Requested Prescriptions Pending Prescriptions Disp Refills levothyroxine (SYNTHROID) 100 mcg tablet 90 tablet 3 Sig: Take 1 tablet by mouth once daily. Take on empty stomach Juwan Land APRN.CNP [facility]02-04-2025 Miscellaneous Notes* Telephone Encounter - Juwan [...] 20, 2024 2:09 PM documented in this encounterUc [facility] Hospital02-04-2025 Telephone encounter Note * Telephone Encounter [...] Morfin LPN June 20, 2024 2:09 PM [facility]-04-[facility] History of Present illness Narrative* Becca Mir APRN.SOLAR PANEL TECHNICIAN - 06/20/2024 9:00 AM EST Images from [...] EGD on 06/[address] Cota at [facility], stable findings. Renal function has been stable with GFR 31. 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 GERD (gastroesophageal reflux disease) 10/01/2017 Hives Intramural leiomyoma of uterus Malnutrition of moderate degree ([facility]) 06/15/2018 Nephrolithiasis NSIP (nonspecific interstitial pneumonia) ([facility]) Obesity, Class I, BMI 30-34.9 E66.9 09/03/2017 Osteopenia Overactive bladder Primary osteoarthritis of first carpometacarpal joint of right hand 08/05/2017 Added automatically from request for surgery [id number] Rectal bleed 09/05/2014 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, Masaoka [...] your 75mg tablets so your full dose [id number]. aspirin, enteric coated 81 mg EC tablet [...] Moderate air trapping. 3. Small hiatal hernia. Fermenter Operator: PSCKeysha Transcribe Date/Time: Jun 14 2024 12:54P Dictated by : CATIA RAMOS MD This examination was interpreted and the report reviewed and electronically signed by: CATIA RAMOS MD on Jun 14 2024 12:58PM EST Results-Findings * * *Final Report* * * DATE OF EXAM: Jun 12 2024 11:43AM [facility] 0541 - CT CHEST WO IVCON [...] alert. ASSESSMENT/PLAN: 1. NSIP (nonspecific interstitial pneumonitis) ([facility]) - ICD9: 516.8, ICD10: J84.89 [...] chest CT unless patient changes clinically. 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 CKD stage 3b, GFR 30-44 ml/min ([facility]) - ICD9: 585.3, ICD10: N18.32 - eGFR: 31 Stable - Follows with nephrology at [facility], Dr. Steve F/u scheduled in October, will [...] which included preparing to see the patient, dton-fh-qveq patient care, completing clinical documentation, performing a medically appropriate examination, counseling and educating the patient/family/caregiver, and ordering medications, tests,or procedures. documented in this encounterUc [facility] Hospital02-04-2025 NoteOhio[facility]01-27-2025 History of Present illness Narrative* Reef Cara Paez RT(R) - 06/12/2024 11:00 AM EST Radiology [...] PATIENT PRESENTS WITH AN IMPLANTABLE OR ATTACHED CANE PILER: No RADIOLOGY DEPARTMENT: CT; Exam(s) Completed: Chest PERIPHERAL IV DATA: Not applicable SIGNED BY: RT Jonathon(R) June 12, 2024 2:08 PM documented in this encounterUc [facility] Hospital01-27-2025 NoteOhio[facility]01-24-2025 NoteOhio[facility]01-24-2025 History of Present illness Narrative* Wiley [...] which included preparing to see the patient, [id number]-ya-khsn patient care, completing clinical documentation, obtaining and/or reviewing separately obtained history, and counseling and educating the patient/family/caregiver. documented in this encounterUc [facility] Hospital01-21-2025 [facility] Medical Records Department [address] [place] [address] History Physical Exam 06/06/24 1515 MR#: [id number] Acct: [id number] Name: EREN MERCHANT Rep #: [id number] : 1960 64 From: Adtiya Cota DO PCP: Dr. Priyanka Smith MD Status:[facility] Location: [place] [address] HPI - General General Date of Admission: [...] 03.04.24 for seizure like activity at the [facility]. She was found to have a [...] mcg (1,000 unit) tablet (Vitamin D3) geriatric kbhopmct-ilvy-fchg 1 ea PO DAILY 06/28/18 06/05/24 History [...] Reaction Status Date / [facility] All[facility] Intermediate Rash Verified 06/06/24 14:34 erythromycin [...] fecal incontinence, heartburn, hematemesi (more content not included)...[facility]01-15-2025 Telephone encounter Note* Telephone Encounter - Jacqueline Valadez APRN.CNP - 05/31/2024 11:11 AM EST Noted, thank you. Jacqueline Valadez APRN.CNP [facility] Work Phone: 1(797) 118-694801-15-2025 Miscellaneous Notes* Telephone Encounter - Jacqueline Valadez [...] has any questions. Thank you. Jacqueline Valadez APRN.SOLAR PANEL TECHNICIAN documented in this encounterUc [facility] Hospital01-15-2025 Telephone encounter Note * Telephone Encounter - Mariam Woods LPN - 05/31/2024 10:31 AM EST Patient notified of results, verbalizes understanding of instructions. Pt stated the Tylenol Arthritis helps during the day. She also has an appt with Ortho this month. Mariam Woods LPN [facility]01-15-2025 Telephone encounter Note* Telephone Encounter - [...] any questions. Thank you. Jacqueline Valadez APRN.SAMIR [facility]01-14-2025 Instructions* Patient Instructions* Gemma Roberts APRN.CNP [...] or you can send a message through Val[employer]. You can also now schedule and select appointments through [employer]. Gemma Roberts APRN.SAMIR documented in this encounterUc [facility] Hospital01-14-2025 History of Present illness Narrative* Gemma Roberts APRN.CNP - 05/30/2024 8:00 AM EST [facility] - FOLLOW UP EVALUATION Primary Neurologist: Bogdan Roberts MD Primary [place]SE[place]: SAMIR Madrigal MD [address] [facility] [address] Dear Priyanka Smith MD: I had the [...] Please call and follow up with your energy project manager regarding your prednisone being stopped while in [...] Compared to Last Filed Total (!) 62.5 Ijgg-Yddmjf-Etmkl Tremor Scale Medication OFF/ON Time of Assessment [...] Schedule: Medications None Level of service : 03880 (20-29 min). Time spent 26 min on the day of service, which included preparing to see the patient, kwyh-oq-yezw patient care, completing clinical documentation, obtaining and/or reviewing separately obtained history, performing a medically appropriate examination, and counseling and educating the patient/family/caregiver. Gemma Roberts APRN.SOLAR PANEL TECHNICIAN documented in this encounterUc [facility] Hospital01-14-2025 NoteOhio[facility]01-08-2025 History of Present illness Narrative* Sakshi [...] PATIENT PRESENTS WITH AN IMPLANTABLE OR ATTACHED CANE PILER: No RADIOLOGY DEPARTMENT: General X-ray: Exam(s) Completed: Lower Extremity X- Ray(s): Knee, AP / Lat / Tunne / Merchant Bilateral and Wt. Bearing PERIPHERAL IV DATA: Not applicable SIGNED BY: RT Cinthya(R) May 24, 2024 10:10 AM documented in this encounterU[facility]01-08-2025 NoteOhio[facility] Shelby Hospital01-08-2025 Instructions* Patient Instructions* Jacqueline Valadez APRN.CNP - 05/24/2024 8:30 AM EST Get knee xray completed Continue to use Tylenol as needed for pain May elevate and apply ice as needed. May consider Voltaren gel in the future. Keep up coming appt with Orthopedics. documented in this encounterUc [facility]01-08-2025 History of Present illness Narrative* Jacqueline [...] leiomyoma of uterus Malnutrition of moderate degree ([facility]) 06/15/2018 Nephrolithiasis NSIP (nonspecific interstitial pneumonia) ([facility]) Obesity, Class I, BMI 30-34.9 E66.9 09/03/2017 Osteopenia Overactive bladder Primary osteoarthritis of first carpometacarpal joint of right hand 08/05/2017 Added automatically from request for surgery [id number] Rectal bleed 09/05/2014 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, Masaoka [...] UNI/BI Tubal ligation LX PARTIAL COLECTOMY 12/23/2017 [facility] lap lysis of adhesions, left oopherectomy, right salpinoopherectomy, left salpingectomy, redo lap sigmoid colectomy w/ressection, lap mobilization of splenic flexure, lap appendectomy PAST SURGICAL HISTORY OF 10/2008 T9-L1 fusion, Dr. Lemon PAST SURGICAL HISTORY OF 10/24/2009 Removed T9-L1, 2 rods and 8 screws, Dr Lemon PAST SURGICAL HISTORY OF 11/2018 Hysteroscopy with D&C and Polypectomy with Burroughs and NephCellmemore Truclear device PICC LINE INSERT/CONSULT 07/11/2018 THYMECTOMY [...] discussed and patient voices understanding. Jacqueline Valadez APRN.CNP This note was partially generated using [employer] voice recognition system. Note was reviewed for accuracy. There may be minor misspellings or grammar miscues with [employer] voice recognition. documented in this encounterUc [facility]01-08-2025 NoteOhiohealth Shelby Hospital01-07-2025 Telephone encounter Note* Telephone Encounter - Lala Ruiz APRN.CNP - 05/23/2024 12:15 PM EST Pt scheduled for VV with Dr. Benitez 05/24/24 The following approved medication requests have been transmitted electronically. Requested Prescriptions Signed Prescriptions Disp Refills amitriptyline (ELAVIL) 75 mg tablet 90 tablet 1 Sig: Take 1 tablet by mouth daily at bedtime. Pharmacy Information Pharmacy Address Telephone [phone], [place] [address] Lala Ruiz APRN.CNP May 23, 2024 12:15 PM [facility]01-07-[facility] Miscellaneous Notes* Telephone Encounter - Lala Ruiz APRN.SAMIR - 05/23/2024 12:15 PM EST Pt scheduled for VV with Dr. Benitez 05/24/24 The following approved medication requests have been transmitted electronically. Requested Prescriptions Signed Prescriptions Disp Refills amitriptyline (ELAVIL) 75 mg tablet 90 tablet 1 Sig: Take 1 tablet by mouth daily at bedtime. Pharmacy Information Pharmacy Address Telephone [id number] [phone] [place] [address] Lala Ruiz APRN.SAMIR May 23, 2024 12:15 PM * Telephone [...] in person or televisit documented in this encounterUc [facility] Hospital01-07-2025 Telephone encounter Note * Telephone Encounter [...] up 6-8 weeks in person or televisit [facility]01-06-[facility] Telephone encounter Note* Telephone Encounter - Joy Arvizu LPN - 05/22/2024 10:02 AM EST AMAN: 04/17/24 Patient phones requesting refills as follows: Requested Prescriptions Pending Prescriptions Disp Refills mycophenolate Mofetil (CELLCEPT) 500 mg tablet 270 tablet 3 Sig: Take 2 in am and one in pm Please review and advise. Joy Arvizu LPN [facility]01-06-2025 Miscellaneous Notes* Telephone Encounter - Joy Arvizu LPN - 05/22/2024 10:02 AM EST AMAN: 04/17/24 Patient phones requesting refills as follows: Requested Prescriptions Pending Prescriptions Disp Refills mycophenolate Mofetil (CELLCEPT) 500 mg tablet 270 tablet 3 Sig: Take 2 in am and one in pm Please review and advise. Joy Arvizu LPN documented in this encounterUc [facility] Hospital01-02-2025 Instructions* Patient Instructions* Latha Cuevas MD - 05/18/2024 11:55 AM EST Please do the test on fasting- take about 1.5 to 2 hrs documented in this encounterUc [facility] Hospital01-02-2025 [facility]01-02-2025 History of Present illness Narrative* Latha Cuevas MD - 05/18/2024 11:30 AM EST [facility] Follow up note Consulted by: Priyanka Smith MD Chief Complaint: 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, detention use of systemic steroids HPI: This is [...] leiomyoma of uterus Malnutrition of moderate degree ([facility]) 06/15/2018 Nephrolithiasis NSIP (nonspecific interstitial pneumonia) ([facility]) Obesity, Class I, BMI 30-34.9 E66.9 09/03/2017 Osteopenia Overactive bladder Primary osteoarthritis of first carpometacarpal joint of right hand 08/05/2017 Added automatically from request for surgery [id number] Rectal bleed 09/05/2014 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, Masaoka [...] UNI/BI Tubal ligation LX PARTIAL COLECTOMY 12/23/2017 [facility] lap lysis of adhesions, left oopherectomy, right salpinoopherectomy, left salpingectomy, redo lap sigmoid colectomy w/ressection, lap mobilization of splenic flexure, lap appendectomy PAST SURGICAL HISTORY OF 10/2008 T9-L1 fusion, Dr. Lemon PAST SURGICAL HISTORY OF 10/24/2009 Removed T9-L1, 2 rods and 8 screws, Dr Lemon PAST SURGICAL HISTORY OF 11/2018 Hysteroscopy with D&C and Polypectomy with Burroughs and Effective Measure Truclear device PICC LINE INSERT/CONSULT 07/11/2018 THYMECTOMY [...] 31.0 - 80.0 ng/mL 49.0 Latest Ref Rn 05/11/2024 Protein, Total 6.3 - 8.0 g/dL [...] with concerns for possible AI due to detention steroid therapy PLAN: 1. 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) Due [...] Moderate Latha Cuevas MD Endocrinology Associate Staff [facility] Endocrinology and Metabolism [place] [phone] documented in this encounterUc [facility] Hospital12-20-2024 Instructions* Patient Instructions* Latha Cuevas MD - 05/05/2024 8:38 AM EST Please do labs on fasting at 8 am Hold the supplements for about 3 to 5 days before labs are drawn documented in this encounterUc [facility] Hospital12-20-2024 NoteOhiohealth Shelby Hospital12-20-2024 History of Present illness Narrative* Latha Cuevas MD - 05/05/2024 8:28 AM EST [facility] Initial Clinic Visit Note Consulted by: Priyanka Smith MD Chief Complaint: 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, terminal carman use of systemic steroids HPI: This is [...] leiomyoma of uterus Malnutrition of moderate degree ([facility]) 06/15/2018 Nephrolithiasis NSIP (nonspecific interstitial pneumonia) ([facility]) Obesity, Class I, BMI 30-34.9 E66.9 09/03/2017 Osteopenia Overactive bladder Primary osteoarthritis of first carpometacarpal joint of right hand 08/05/2017 Added automatically from request for surgery [id number] Rectal bleed 09/05/2014 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, Masaoka [...] UNI/BI Tubal ligation LX PARTIAL COLECTOMY 12/23/2017 [facility] lap lysis of adhesions, left oopherectomy, right [...] with concerns for possible AI due to terminal carman steroid therapy PLAN: 1. 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 (HCC) (E27.40) 2. longterm systemic 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 (Z79.52) Due to hx [...] Moderate Latha Cuevas MD Endocrinology Associate Staff [facility] Endocrinology and Metabolism [place] [phone] documented in this encounterUc [facility] Hospital12-02-2024 Instructions* Patient Instructions* Wiley Benitez MD [...] doing with this medication. documented in this encounterUc [facility] Hospital12-02-2024 NoteOhiohealth Shelby Hospital12-02-2024 History of Present illness Narrative* Wiley [...] recommendation and said she would go to [place] ER. History since last visit: Was admitted [...] which included preparing to see the patient, [id number] patient care, completing clinical documentation, obtaining and/or reviewing separately obtained history, and counseling and educating the patient/family/caregiver. documented in this encounterUc [facility] Hospital12-02-2024 History of Present illness Narrative* Karen Alcantara MD - 04/17/2024 9:30 AM EST Images from the original note were not included. . Respiratory [place] Note Patient name: Eren Merchant PCP: Priyanka [...] CellCept. Required increase in her CellCept dose [id number] mg a day after surveillance CT showed new groundglass opacities. She has been maintained on 5 m g of prednisone. She opted not continue to follow with the [facility] clinic on a regular basis due to difficulty traveling the distance. Since her last office visit she was admitted to local hospital and then transferred to [facility] when she presented with syncope. Discovered to [...] cough. Review of her chest CT from [facility] shows new area in her [...] 12.7 fL 10.3 CTA chest 02/2024 at [facility]: FINDINGS: There is a stable low-attenuation nodule [...] (HCC) 06/15/2018 Nephrolithiasis NSIP (nonspecific interstitial pneumonia) ([facility]) Obesity, Class I, BMI 30-34.9 E66.9 09/03/2017 Osteopenia Overactive bladder Primary osteoarthritis of first carpometacarpal joint of right hand 08/05/2017 Added automatically from request for surgery [id number] Rectal bleed 09/05/2014 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, Masaoka [...] UNI/BI Tubal ligation LX PARTIAL COLECTOMY 12/23/2017 [facility] lap lysis of adhesions, left oopherectomy, right salpinoopherectomy, left salpingectomy, redo lap sigmoid colectomy w/ressection, lap mobilization of splenic flexure, lap appendectomy PAST SURGICAL HISTORY OF 10/2008 T9-L1 fusion, Dr. Lemon PAST SURGICAL HISTORY OF 10/24/2009 Removed T9-L1, 2 rods and 8 screws, Dr Lemon PAST SURGICAL HISTORY OF 11/2018 Hysteroscopy with D&C and Polypectomy with Burroughs and NephCellmemore Truclear device PICC LINE INSERT/CONSULT 07/11/2018 THYMECTOMY [...] which included preparing to see the patient, [id number] patient care, completing clinical documentation, obtaining and/or reviewing separately obtained history, performing a medically appropriate examination, ordering medications, tests, or procedures, and independently interpreting results (not separately reported). Karen Alcantara MD Respiratory [place] documented in this encounterUc [facility] Hospital12-02-2024 NoteOhiohealth Shelby Hospital11-29-2024 Telephone encounter Note* Telephone Encounter - Pili Olson MA - 04/14/2024 8:45 AM EST Patient notified and voiced understanding. Pili Olson MA [facility]11-29-2024 Miscellaneous Notes* Telephone Encounter - Pili [...] in a new prescription. documented in this encounterUc [facility] Hospital11-29-2024 Telephone encounter Note * Telephone Encounter - Jonathan Monterroso APRN.CNP - 04/14/2024 8:00 AM EST Please let patient know her culture shows E coli infection that is not responsive to the antibiotics I gave her. I have sent in a new prescription. [facility]11-25-2024 NoteOhiohealth Shelby Hospital11-25-2024 History of Present illness Narrative* Jonathan [...] leiomyoma of uterus Malnutrition of moderate degree ([facility]) 06/15/2018 Obesity, Class I, BMI 30-34.9 E66.9 09/03/2017 Osteopenia Overactive bladder Primary osteoarthritis of first carpometacarpal joint of right hand 08/05/2017 Added automatically from request for surgery [id number] Rectal bleed 09/05/2014 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, Masaoka [...] UNI/BI Tubal ligation LX PARTIAL COLECTOMY 12/23/2017 [facility] lap lysis of adhesions, left oopherectomy, right salpinoopherectomy, left salpingectomy, redo lap sigmoid colectomy w/ressection, lap mobilization of splenic flexure, lap appendectomy PAST SURGICAL HISTORY OF 10/2008 T9-L1 fusion, Dr. Lemon PAST SURGICAL HISTORY OF 10/24/2009 Removed T9-L1, 2 rods and 8 screws, Dr Lemon PAST SURGICAL HISTORY OF 11/2018 Hysteroscopy with D&C and Polypectomy with Burroughs and NephCellmemore Truclear device PICC LINE INSERT/CONSULT 07/11/2018 THYMECTOMY [...] URINE (POC) - URINE CULTURE Jonathan Monterroso APRN.SOLAR PANEL TECHNICIAN documented in this encounterUc West Chester Hospital11-25-2024 Telephone encounter Note * Telephone Encounter - Dee Sanchez RN - 04/10/2024 12:50 PM EST Patient calling to say she saw Dr. Steve Nephrology @ [place]. He let patient know he was faxing UA results to PCP office so patient can be treated for UTI. Those results are in EPIC. UA was done on 04/05/24. Patient states she has had symptoms of burning with urination and urgency x 4 dayssince having stent removed on 04/06/24. Advised patient probably needs appointment. Scheduled with Jonathan Monterroso PHOTONICS ENGINEERING TECHNICIAN due to no appointments available in [facility]. Dee Sanchez RN [facility]11-25-2024 Miscellaneous Notes* Telephone Encounter - Dee Sanchez RN - 04/10/2024 12:50 PM EST Patient calling to say she saw Dr. Steve Nephrology @ [place]. He let patient know he was faxing [...] NP due to no appointments available in [facility]. Dee Sanchez RN documented in this encounterUc West Chester Hospital11-22-2024 History of Present illness Narrative* Phong Blake MD - 04/07/2024 9:20 AM EST Cystoscopy and stent removal Procedure Note Pre-operative Diagnosis: Ureteral calculus Post-operative Diagnosis: Ureteral calculus Procedure Details The risks, benefits, complications, treatment options, and expected outcomes were discussed with the patient. The patient concurred with the proposed plan, giving informed consent. A female medical laboratory technical officer was present for the entire procedure. A [...] fluid intake. Followup with usual urologist at [facility] Phong Blake M.D. 04/07/2024 Lives in [facility] Interstim, IC 04/07/2024: Stent removal 03/23/2024: Bilateral ULL (R. Lower pole - no stent ; L. Ureter - stent placed) 03/05/2024: CT: Bilateral hydro. 5 mm. L. UVJ stone 03/03/2024: Urology ([facility]): - Pt is s/p mirabegron, oxybutynin, interstim, [...] (Dr. Steve, C.F. Nephrology) documented in this [facility]11-22-2024 NoteCystoscopy and stent removal Procedure Note Pre-operative Diagnosis: Ureteral calculus Post-operative Diagnosis: Ureteral calculus Procedure Details The risks, benefits, complications, treatment options, and expected outcomes were discussed with the patient. The patient concurred with the proposed plan, giving informed consent. A female medical laboratory technical officer was present for the entire procedure. A [...] fluid intake. Followup with usual urologist at [facility] Phong Blake M.D. 04/07/2024 Lives in [facility]). Interstim, IC 04/07/2024: Stent removal 03/23/2024: Bilateral ULL (R. Lower pole - no stent ; L. Ureter - stent placed) 03/05/2024: CT: Bilateral hydro. 5 mm. L. UVJ stone 03/03/2024: Urology ([facility]): - Pt is s/p mirabegron, oxybutynin, interstim, [...] Name of caller: Eren Contact phone number: [phone] Relationship to Patient: patient Provider: Dr. Kayli Velasquez Practice: Neurology Chief Complaint/Reason for Call: Patient is requesting ED notes and testing from 03/04/24 and 03/06/24 to be faxed to her neurologist at [phone]. Please advise. Best time of day caller can be reached: Any Patient advised that office/PCP has 24-48 business hours to return their call: Yes [facility] [id number] Miscellaneous Notes* Telephone Encounter - Viri Cole - 04/03/2024 12:37 PM EST Name of caller: Eren Contact phone number: [phone] Relationship to Patient: patient Provider: Dr. Kayli Velasquez Practice: Neurology Chief Complaint/Reason for Call: Patient is requesting ED notes and testing from 03/04/24 and 03/06/24 to be faxed to her neurologist at [phone]. Please advise. Best time of day caller can be reached: Any Patient advised that office/PCP has 24-48 business hours to return their call: Yes documented in this encounterSSheltering Arms [id number] Telephone encounter Note* Telephone Encounter - Geri Lewis MA - 03/27/2024 1:09 PM EST Spoke with Pt - Pt requests [facility]. Pt appt rescheduled to 04.07.24 @09 [facility] with [address]. Blake. Pt aware of appt d/t/l. [facility] [id number] Miscellaneous Notes* Telephone Encounter - Geri Lewis MA - 03/27/2024 1:09 PM EST Spoke with Pt - Pt requests [place] location. Pt appt rescheduled to 04.07.24 @09 [facility] with Dr. Blake. Pt aware of appt d/t/l. * Telephone Encounter - Carlos Thorpe - 03/27/2024 12:32 PM EST Patient retuning call and states she was offered [place] location [...] N/A Medication Name: N/A documented in this [facility]11-11-2024 Telephone encounter Note* Telephone Encounter - Carlos hTorpe - 03/27/2024 12:32 PM EST Patient retuning call and states she was offered [place] location on the . Please call to reschedule. [facility] WestLOOKSIMAXoylbh33-02-2794 Telephone encounter Note* Telephone Encounter - Jacqueline Hale - 03/24/2024 2:14 PM EST Name of Caller: Eren Contact Reason for Appointment: Patient called to verify procedure appointment. Patient asked if there was a closer off to where she lives. Please call patient back to advise. Office Name: Urology Medication Refills need, if any: N/A Medication Name: N/A [facility] [id number] NotePatient: Eern Merchant Procedure Summary Date: 03/23/24 Room / Location: [address] Operating Room Anesthesia Start: 1449 Anesthesia [...] Procedure Summary Date: 03/23/24 Room / Location: [place] [address] [facility] Operating Room Anesthesia Start: 1449 Anesthesia [...] either at your pre- operative day at [facility], [facility], or with your regular doctor. - Some [...] Stent Discharge Instructions (Bahamian) documented in this [facility]11-07-2024 Miscellaneous Notes* Perioperative Nursing [...] Diagnostic ureteroscopy was performed using the 6.9 Zimbabwean semirigid ureteroscope. The scope was advanced along [...] emptied and patient awoken from anesthesia. Katherine Bowne MD 03/23/24 5:20 PM * Perioperative Nursing Note - Kyrie Moreno RN - 03/23/2024 2:43 PM EST PRE-PROCEDURE ROUNDING COMPLETE. documented in this [facility]11-07-2024 Note* Perioperative Nursing Note [...] into her clothes while up to bathroom. [facility] [id number] Note* Perioperative Nursing Note - Renea Leyva [...] into her clothes while up to bathroom. [address]07-2024 Note* Perioperative Nursing Note - Renea Leyva RN - 03/23/2024 4:34 PM EST Took over care of patient for RN lunch break. Patient just placed on bed mcgraw per RN. [address]07-2024 Note* Perioperative Nursing Note - Renea Leyva RN - 03/23/2024 4:34 PM EST Took over care of patient for RN lunch break. Patient just placed on bed [place]cgraw per RN. [address]07-2024 NoteAirway Date/Time: 03/23/2024 2:55 PM Urgency: scheduled Airway not difficult General Information and Staff Patient location during procedure: Procedural Resident/STATISTICAL TYPIST: Casi Burroughs APRN - STATISTICAL TYPIST Performed: STATISTICAL TYPIST Indications and Patient Condition Indications for airway [...] (cm): 21 Number of attempts at approach: [address] [place], [place] [address]11-07-2024 Note* Op Note - Katherine Bowen MD [...] Diagnostic ureteroscopy was performed using the 6.9 Zimbabwean semirigid ureteroscope. The scope was advanced along [...] anesthesia. Katherine Bowen MD 03/23/24 5:20 PM [facility] [id number] Note* Op Note - Katherine Bowen MD [...] Diagnostic ureteroscopy was performed using the 6.9 Zimbabwean semirigid ureteroscope. The scope was advanced along [...] anesthesia. Katherine Bowen MD 03/23/24 5:20 PM [facility] [id number] Note* Perioperative Nursing Note - Kyrie Moreno RN - 03/23/2024 2:43 PM EST PRE-PROCEDURE ROUNDING COMPLETE. [facility] [id number] Note* Perioperative Nursing Note - Kyrie Moreno RN - 03/23/2024 2:43 PM EST PRE-PROCEDURE ROUNDING COMPLETE. [facility] [id number] NotePRE-PROCEDURE ROUNDING COMPLETE.[facility]11-07-2024 Attending [...] for Admission: Eren Henry, 1960 is at [facility] ED. Pt has been in ED at [facility] for pyelonephritis with possible neoplastic process. Hospitalist at [facility] unable to care for pt at [facility]. Pt cannot have contrast due to MANJIT (creat 3.1). [facility] reached out to [facility] yesterday but still don't have a bed. Dr Jaguar Mckeon spoke with Dr. Noel Contreras here at [facility] and pt accepted to [facility] by Dr Contreras. History Obtained From: [...] day of admission. Ultimately pt presented to [facility] for chief complaint of seizure-like [...] cystitis. Given concern for malignancy, urology at [facility] recommended transfer and medical admission for further workup. Prior to her transfer, ED started pt on fludrocortisone 0.1mg PO BID. Upon assessment at [facility], pt reiterated much of what was [...] Resource Strain: High Risk (03/26/2020) [facility] Overall Financial Resource Strain (CARDIA) Difficulty of Paying Living Expenses: Very hard Food Insecurity: No Food Insecurity (03/26/2020) [facility] Hunger Vital Sign Worried About Running Out of Food in the Last Year: Never true Ran Out of Food in the Last Year: Never true Transportation Needs: No Transportation Needs (03/26/2020) [facility] PRAPARE - Transportation Lack of Transportation (Medical): No Lack of Transportation (Non-Medical): No Physical Activity: Inactive (06/22/2023) [facility] Exercise Vital Sign Days of Exercise per Week: 0 days Minutes of Exercise per Session: 0 min Stress: No Stress Concern Present (09/03/2019) [facility] [place] of Occupational Health - Occupational Stress Questionnaire Feeling of Stress : Not at all Social Connections: Unknown (03/01/2020) [facility] Social Connection and Isolation Panel [NHANES] Frequency of Communication with Friends and Family: Three times a week Frequency of Social Gatherings with Friends and Family: Three times a week Attends [employer]: Not on file Active Member of [...] notes. -On admission, pt was discussed with [facility] urology whom recommended repeat imaging if [...] Merchant Mobile Relation: Son Preferred language: Bahamian Funeral Arranger needed? No Secondary Emergency Contact: Michael Merchant Mobile Relation: Significant Other Preferred language: Bahamian Funeral Arranger needed? No ADVANCED [employer] PLANNING Eren Merchant : 1960 Primary Care Physician: Priyanka Smith The patient and/or family/surrogate voluntarily agreed to participate in ACP services. Patient s cognitive capacity: AOX4 Code Status: [X] [FULL CODE - Continue all advanced life support: CPR,intubation,invasive procedures] [_] [DNR-CCA - DO NOT do CPR, intubation] [_] [DNR-ASPHALT PLANT OPERATOR - Comfort care only] [_] DNR form [was/was not] signed Maurilio Groves MD Division of Hospitalist Medicine [facility] Curbside Phone: 1(830) 726-714411-07-2024 History and physical note* Katherine Bowen MD [...] Admission: Eren YVONNE Henry 1960 is at [facility] ED. Pt has been in ED at [facility] for pyelonephritis with possible neoplastic process. Hospitalist at [facility] unable to care for pt at [facility]. Pt cannot have contrast due to MANJIT (creat 3.1). [facility] reached out to [facility] yesterday but still don't have a bed. Dr Jaguar Mckeon spoke with Dr. Noel Contreras here at [facility] and pt accepted to [facility] by Dr Contreras. History Obtained From: [...] day of admission. Ultimately pt presented to [facility] for chief complaint of seizure-like [...] cystitis. Given concern for malignancy, [facility] recommended transfer and medical admission for further workup. Prior to her transfer, ED started pt on fludrocortisone 0.1mg PO BID. Upon assessment at [facility], pt reiterated much of what was [...] Resource Strain: High Risk (03/26/2020) Received from [facility] Overall Financial Resource Strain (CARDIA) Difficulty of Paying Living Expenses: Very hard Food Insecurity: No Food Insecurity (03/26/2020) Received from [facility] Hunger Vital Sign Worried About Running Out of Food in the Last Year: Never true Ran Out of Food in the Last Year: Never true Transportation Needs: No Transportation Needs (03/26/2020) Received from [facility] PRAPARE - Transportation Lack of Transportation (Medical): No Lack of Transportation (Non-Medical): No Physical Activity: Inactive (06/22/2023) Received from [facility] Exercise Vital Sign Days of Exercise per Week: 0 days Minutes of Exercise per Session: 0 min Stress: No Stress Concern Present (09/03/2019) Received from [facility] [place] of Occupational Health - Occupational Stress Questionnaire Feeling of Stress : Not at all Social Connections: Unknown (03/01/2020) Received from [facility] Social Connection and Isolation Panel [NHANES] Frequency of Communication with Friends and Family: Three times a week Frequency of Social Gatherings with Friends and Family: Three times a week Attends [employer]: Not on file Active Member of [...] notes. -On admission, pt was discussed with [facility] urology whom recommended repeat imaging if [...] Merchant Mobile Relation: Son Preferred language: Bahamian Funeral Arranger needed? No Secondary Emergency Contact: Michael Merchant Mobile Relation: Significant Other Preferred language: Bahamian Funeral Arranger needed? No ADVANCED CARE PLANNING Eren Herbertiver : 1960 Primary Care Physician: Priyanka Smith The patient and/or family/surrogate voluntarily agreed to participate in ACP services. Patient s cognitive capacity: AOX4 Code Status: [X] [FULL CODE - Continue all advanced life support: CPR,intubation,invasive procedures] [_] [DNR-CCA - DO NOT do CPR, intubation] [_] [DNR-ASPHALT PLANT OPERATOR - Comfort care only] [_] DNR form [was/was not] signed Maurilio Groves MD [facility] documented in this [place] [address]-07-2024 NoteH&P Update Patient's History and Physical from 03/04/24 was reviewed. Patient examined. There has been no change. Impression: ureteral calculus Plan: : cystoscopy pyelogram ureteroscopy laser lithotripsy stent placement bilateral : Electronically signed by Katherine Bowen MD 03/23/24 2:32 [facility]11-07-2024 Telephone encounter Note* Telephone Encounter - Jessika De Jesus - 03/23/2024 11:20 AM EST 1st attempt left message to return call to arrange consult to Endo [facility]11-07-2024 Miscellaneous Notes* Telephone Encounter - Jessika [...] them know. Please advise. [facility] Telephone encounter Note * Telephone Encounter - Tess Persaud MA - 03/23/2024 10:28 AM EST Referral filed. Return call to Dr. Steve's office notifying them that PCP has placed referral. Routing chart to Scheduling to contact pt to help assist is in setting up appt with pt. Refer to Endo appt. Tess Persaud MA [facility]11-07-2024 Telephone encounter Note* Telephone Encounter - Priyanka Smith MD - 03/23/2024 10:18 AM EST OK for Endo referral as requested Priyanka Smith MD [facility]11-06-2024 NotePatient: Eren Herbertiver Procedure Information Date/Time: 03/23/24 1330 Procedures: CYSTOSCOPY AND PYELOGRAM (Urethra) - 60 MIN BILATERAL URETEROSCOPY, HOLMIUM LASER LITHOTRIPSY (Bilateral: Urethra) BILATERAL URETERAL STENT CHANGE (Bilateral: Urethra) Location: [address] Operating Room Surgeons: Katherine Bowen MD [...] need to let them know. Please advise. [facility]11-05-2024 Telephone encounter Note* Telephone Encounter - Carmita Avila - 03/21/2024 1:46 PM EST Benefit verification forms initiated via [email or web address] to be sent to [employer]. [facility]11-05-2024 Miscellaneous Notes* Telephone Encounter - Carmita Avila - 03/21/2024 1:46 PM EST Benefit verification forms initiated via [email or web address] to be sent to [employer]. documented in [facility] History of Present illness Narrative* Priyanka [...] Sent to ER who sent her to [facility] due to kidney infection. Pt here for hospital follow up. Was admitted to [facility] on 03/04/24 through 03/09/24 for kidney infection [...] Dr. Cota in [place]. Has appt with Education Spec. Has a few more appts to make. [...] recent episodes which prompted her transfer to [facility] for further workup. On 02/26/24, patient [...] office on 03/03/24. 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 Head trauma (no); 2. EDUCATIONAL DIRECTOR infections (no); 3. Family history of seizures (yes, brother); 4. Developmental delay (no); 5. Febrile seizures (no); 6. EDUCATIONAL DIRECTOR tumors (no); 7. EDUCATIONAL DIRECTOR vascular disease (no); 8. Significant medical history: CKD, ILD, current complicated UTI; 9. and early development: normal and early development Patient presented to [facility] and was found to be tachycardic. 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 Usually we ll treat for brad esophagitis empirically however with no recent EGD and concerning CT findings which is not available for review, needs further investigation. Her current acute issue is sepsis however, once her hemodynamics are improved, can perform an EGD to rule out any advanced lesion given the imaging findings. If negative, recommend she establishes with a local GI in [place] for ongoing care for dysmotility. 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 [...] Past Histories independently gathered by the clinical unit support representative and the remaining scribed note accurately describes [...] PM. Susana Bhardwaj MA documented in [facility] Telephone encounter Note * Telephone Encounter - Batool Saleem - 03/16/2024 10:07 AM EDT Lvm for Pt letting her know if she still has questions to call our office. [facility] [id number] Miscellaneous Notes* Telephone Encounter - Batool Saleem - 03/16/2024 10:07 AM EDT Lvm for Pt letting her know if she still has questions to call our office. * Telephone Encounter - Elma Otoole - 03/15/2024 1:50 PM EDT Name of caller: Eren Contact phone number: [phone] Relationship to Patient: patient Provider: Clarice Practice: [...] return their call: N/A documented in this encounterSSheltering Arms [id number] Instructions* Patient Instructions* Gemma Roberts APRN.CNP - [...] Please call and follow up with your energy project manager regarding your prednisone being stopped while in the hospital Movement Disorders Medication Schedule: Medications Return in about 2 months (around 05/16/2024). If there are any concerns before your next visit, please call or you can send a message through [employer]. You can also now schedule and select appointments through [employer]. Gemma Roberts APRN.SAMIR documented in this encounterU[facility]10-31-2024 History of Present illness Narrative* Gemma Roberts APRN.CNP - 03/16/2024 9:08 AM EDT [facility] - FOLLOW UP EVALUATION Priyanka Smith MD [address] [facility] [id number] Dear Priyanka Smith MD: I had the [...] Change Compared to Last Filed Total -33.33 Glrt-Jcqlsv-Sdfnv Tremor Scale Medication OFF/ON Drug Naiive Time [...] Please call and follow up with your energy project manager regarding your prednisone being stopped while in the hospital Updated Movement Disorders Medication Schedule: Medications Level of service : 90703 (40-68 min). Time spent 57 min on the day of service, which included preparing to see the patient, xwvv-qk-[id number] patient care, completing clinical documentation, obtaining and/or reviewing separately obtained history, performing a medically appropriate examination, counseling and educating the patient/family/caregiver, and ordering medications, tests, or procedures. Gemma Roberts APRN.SAMIR documented in this encounter[facility]10-30-2024 Telephone encounter Note * Telephone Encounter - Elma Xiang - 03/15/2024 1:50 PM EDT Name of caller: Eren Contact phone number: [phone] Relationship to Patient: patient Provider: Clarice Practice: [...] business hours to return their call: N/A [facility] [id number] Telephone encounter Note* Telephone Encounter - Geri [...] we will send records at that time. [facility] [id number] Miscellaneous Notes* Telephone Encounter - Geri Wong [...] 8 weeks. Not established, patient lives in [place], please call and see if she would like to follow up with us and if not send records to her preferred follow up physician. documented in this [facility]10-24-2024 NoteDischarge Summary Eren Merchant [...] seizure activity, signed off Urine culture from [place] on 03/05 shows Proteus mirabilis [place] Count 80,000-100,000 Proteus mirabilis: REACTION Ampicillin Islt [...] DISCHARGE DATE: 03/09/2024 PRIMARY CARE PHYSICIAN: Priyanka Smtih VISIT STATUS: Admission CODE STATUS: Full Code [...] seizure activity, signed off Urine culture from [place] on 03/05 shows Proteus mirabilis [place] Count 80,000- 100,000 Proteus mirabilis: REACTION Ampicillin [...] SIGNIFICANT DIAGNOSTIC STUDIES: MR brain wo contrast [[id number]] Collected: 03/06/242344 Order Status: Completed Updated: 03/06/242351 Narrative: [facility] 1960 [id number] Exam Date/Time: 03/06/2024 18:46 Procedure: MR BRAIN [...] EDT MR head angio wo IV contrast [[id number]] Collected: 03/06/242348 Order Status: Completed Updated: 03/06/242351 [...] EDT MR NECK ANGIO WO IV CONTRAST [[id number]] Collected: 03/06/242348 Order Status: Completed Updated: 03/06/242352 [...] GUIDANCE OR USE ONLY - NON RESULTABLE [[id number]] Resulted: 03/06/24704 Order Status: Completed Updated: 03/06/24704 Narrative: There is no interpretation needed for this exam. CT abdomen pelvis wo IV contrast [[id number]] Collected: 03/05/24915 Order Status: Completed Updated: 03/05/24935 [...] 03/05/2024 9:35 AM EDT US renal complete [[id number]] Collected: 03/04/242308 Order Status: Completed Updated: 03/04/242311 [...] Your Medications These medications were sent to [facility] - [place], [place] - [address] [place] [address] fluconazole 200 MG tablet fludrocortisone 0.1 MG tablet melatonin 3 MG tablet sucralfate 1 g tablet sulfamethoxazole-trimethoprim 800-160 MG tablet DIET: Adult diet Regular ACTIVITY: No restriction. COMPLEXITY OF FOLLOW UP: [] Moderate Complexity: follow up within 7-14 calendar days (23089) [] Severe Complexity: follow up within 7 calendar days (78311) FOLLOW UP TESTING, PENDING RESULTS OR REFERRALS AT TRANSITIONAL CARE VISIT: [] Yes [] No PENDING STUDIES: DISPOSITION: Home FACILITY/HOME CARE AGENCY NAME: Follow up with Pepito Steve MD [address] [place] [address] [place] [phone] Follow up Priyanka Evansrancho [place] [address] [facility] [address] Schedule an appointment as soon as possible for a visit in 1 week(s) Audi Bae MD [address] [facility] [address] [facility] [phone] Schedule an appointment as soon as possible for a visit in 2 week(s) Aishwarya Fraire MD [address] [facility] [address] [facility] [phone] Schedule an appointment as soon as possible [...] MD 03/09/2024, 4:45 PM documented in this [facility]10-24-2024 [facility]Prem[facility] [...] 79.5 PLT 548* 453* 401 Recent Labs 03/07/2413903/08/24 0531 03/09/24 0242 NA 133* 130* 132* [...] Health10-24-2024 History of Present illness Narrative* Pepito Stvee MD - 03/09/2024 3:51 PM EDT [facility] Progress Note Subjective/ 63 y.o. year old female who we are seeing in consultation for hypotension. In bed, at bedside Blood pressure is improved but still soft. Pt asymptomatic. No edema. Dowd is absent, denies issues with UOP ROS Dysphagia Denies chest pain, shortness of breath, Nausea, vomiting , diarrhea, fever or chills. No interval changes to [facility]. All interval notes/labs/imaging reviewed. Objective/ Vitals: 03/09/24 [...] original note were not included. PHYSICAL THERAPY [facility] Initial Evaluation Name/MRN: Eren Merchant ([id number]) Evaluation Date: 03/09/2024 Date of : 1960 Admission Date: 03/04/2024 2:14 PM Age: 63 y.o. [facility] Discharge Recommendation: Home with assist [...] Medical History: Diagnosis Date Arthritis Cancer (CMS/HCC) ([facility]) Disease of thyroid gland Past Surgical History: Past Surgical History: Procedure Laterality Date BACK SURGERY CHOLECYSTECTOMY COLON SURGERY THYMECTOMY stated per patient, for cancer removal Admission Diagnosis: Patient Active Problem List Diagnosis Date Noted Acquired hypothyroidism 03/04/2024 Chronic interstitial cystitis 03/03/2024 Stage 3a chronic kidney disease (HCC) 01/12/2023 NSIP (nonspecific interstitial pneumonitis) ([facility]) 10/30/2022 Esophageal dysmotility 07/31/2020 ILD (interstitial lung disease) ([facility]) 03/25/2020 Lung nodules 02/12/2020 Post-menopausal [...] Responsibilities: Independent Receives Help From: None Active Lever Miller: Yes 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 Goals and/or [...] seizure activity, signed off Urine culture from [place] on 03/05 shows Proteus mirabilis [place] Count 80,000- 100,000 Proteus mirabilis: REACTION Ampicillin [...] Merchant Mobile Relation: Son Preferred language: Bahamian Funeral Arranger needed? No Secondary Emergency Contact: Michael Merchant Mobile Relation: Significant Other Preferred language: Bahamian Funeral Arranger needed? No Jesse Do MD Division of Hospitalist Medicine [facility] * Jesse Do MD - 03/08/2024 8:11 AM EDT Hospitalist Progress Note 03/08/2024 Subjective: Admit Date: 03/04/2024 PCP: Priyanka Smith Room#: [id number] A BRIEF HOSPITAL COURSE: Eren is a [...] seizure activity, signed off Urine culture from [place] on 03/05 shows Proteus mirabilis [place] Count 80,000- 100,000 Proteus mirabilis: REACTION Ampicillin Islt MELVIN <=2 Ampicillin+Sulbac Islt MELVIN <=2 S ceFAZolin Islt MELVIN <=4 S Cefepime Islt MELVIN <=0.12 S cefTRIAXone Islt MELVNI <=0.25 S Ciprofloxacin Islt MELVIN <=0.25 S [...] antibiotic stewardship team her urine culture from [place] on 03/05 shows Proteus mirabilis [place] Count 80,000-100,000 Proteus mirabilis: REACTION Ampicillin Islt [...] Merchant Mobile Relation: Son Preferred language: Bahamian Funeral Arranger needed? No Secondary Emergency Contact: Michael Merchant Mobile Relation: Significant Other Preferred language: Bahamian Funeral Arranger needed? No Jesse Do MD Division of Hospitalist Medicine [facility] * Deepika Rivera PA-C - 03/08/2024 8:11 AM EDT [facility] Progress Note Subjective/ 63 [...] PFSH. All interval notes/labs/imaging reviewed. Objective/ Vitals: 03/07/24 1117 03/07/24 2007 03/08/24 0032 03/08/24 0443 BP: 107/70 109/71 135/98 [...] any questions or concerns. TRUDI Domingo, SHEA [facility] Office This note is not finalized until authorized by Attending physician. Cosigned by Pepito Steve MD at 03/08/2024 2:49 PM EDT Associated attestation - Pepito Steve MD - 03/08/2024 2:49 PM EDT Notes reviewed and plan discussed with the PA. Agree with above note except Any variance is noted below. Pepito Steve MD [facility] [phone] * Jesse Do MD - 03/07/2024 9:31 [...] 548* BMP: Recent Labs 03/05/24 0400 03/06/24 0523 03/07/24 [...] Merchant Mobile Relation: Son Preferred language: Bahamian Funeral Arranger needed? No Secondary Emergency Contact: Michael Merchant Mobile Relation: Significant Other Preferred language: Bahamian Funeral Arranger needed? No Jesse Do MD Division of Hospitalist Medicine [facility] * Danni Castellon, [facility] - 03/07/2024 7:44 AM EDT NEUROLOGY FOLLOW UP NOTE - Neurology Inpatient Service Patient Name: Eren Merchant Patient : 1960 Acct: [id number] Date of Admission: 03/04/2024 [facility] PCP: Priyanka Smith 03/07/2024 Subjective: [...] recent episodes which prompted her transfer to [facility] for further workup. On 02/26/24, patient was talking to her dad on the phone. The next thing she remembers is lying on the ground. She believes she had LOC but does not know duration. Estimates less than one minute. She [facility]. She walked up to director of strategic alliances desk, all of a sudden both arms [...] by mouth Nightly. AVS from 03/03 from [facility] with Dr. Benitez states: discontinue the [...] 2 times daily. 1000 mg in morning [id number] at night per patient Historical Provider, predniSONE [...] mL/hr at 03/07/24 0640, 1,000 mg at 03/07/24 0640 fludrocortisone (Florinef) tablet 0.1 mg, 0.1 mg, Oral, BID, Jay Black MD, 0.1 mg at 03/06/242157 heparin injection 5,000 Units, 5,000 Units, SubCUTAneous, 3 times per day, Jay Black MD, 5,000Units at 03/07/24 0641 influenza vaccine A&B surf ant adjuvanted (Fluad) [...] S-shaped curves. CT Head w/o contrast 03/04/24 ([facility]) Per report: no acute intracranial abn [...] be monitored and followed by the diet park maintenance technician. Becca Monaco, DT * HAILE Dinh CNP - 03/06/2024 12:21 [...] discussed with Dr. Cruz. * Antony Awad, DO - 03/06/2024 10:34 AM EDT Hospitalist Progress Note 03/06/2024 Subjective: Admit Date: 03/04/2024 PCP: Priyanka Smith Room#: [id number] A BRIEF HOSPITAL COURSE: Eren is a [...] 9 14* 11 LIVER PROFILE: Recent Labs 03/04/24 1828 AST [...] Merchant Mobile Relation: Son Preferred language: Bahamian Funeral Arranger needed? No Secondary Emergency Contact: ShondaMichael Mobile Relation: Significant Other Preferred language: Bahamian Funeral Arranger needed? No Antony Awad DO Division of Hospitalist Medicine [facility] * Cecilia Barney PA-C - 03/06/2024 [...] and states has dysmotility. She was on terminal carman reglan and ended up having drug i [...] per day, Jay Black MD, 5,000Units at 03/06/24 0521 influenza vaccine A&B surf ant adjuvanted (Fluad) HIGH-DOSE injection 0.5 mL, 0.5 mL, IntraMUSCular, Once, Jay Black MD levothyroxine (Synthroid, Levoxyl) tablet 100 mcg, 100 mcg, Oral, qAM AC, Jay Black MD, 100 mcg at 03/06/2421 melatonin tablet 3 mg, 3 mg, Oral, [...] reviewed with the patient. CBC: Recent Labs 03/04/24182703/05/240 03/06/24 0523 WBC 15.3* 12.4* 11.2* RBC 4.66 4.87 4.73 HGB 12.0 12.3 12.2 HCT 37.2 38.2 36.8 MCV 79.8 78.4 77.8 MCH 25.8* 25.3* 25.8* MCHC 32.3 32.2 33.2 RDW 15.2* 15.3* 15.2* PLT 421 466* 462* MPV 10.3 10.3 10.3 CMP: Recent Labs 03/04/24182703/05/24 0400 03/06/24 0523 NA [...] specimen was done by the nurse and park maintenance technician using the patient's name, date and [...] need OP follow up with local GI ([place]), will send records prior to discharge Cosigned by Jennifer Sung MD at 03/07/2024 7:14 AM EDT * Antony Awad, - 03/05/2024 10:05 AM EDT Hospitalist Progress Note 03/05/2024 Subjective: Admit Date: 03/04/2024 PCP: Priyanka Smith Room#: [id number] A BRIEF HOSPITAL COURSE: Eren is a [...] ANIONGAP 9 14* LIVER PROFILE: Recent Labs 03/04/24 1828 AST [...] Merchant Mobile Relation: Son Preferred language: Bahamian Funeral Arranger needed? No Secondary Emergency Contact: Michael Merchant Mobile Relation: Significant Other Preferred language: Bahamian Funeral Arranger needed? No Antony Awad DO Division of Hospitalist Medicine Acute care [facility] documented in this [facility]10-24-2024 NotePHYSICAL THERAPY [facility] Initial Evaluation Name/MRN: Eren Merchant ([id number]) Evaluation Date: 03/09/2024 Date of : 1960 Admission Date: 03/04/2024 2:14 PM Age: 63 y.o. Room/Bed: [facility] A Discharge Recommendation: Home with assist PRN [...] Medical History: Diagnosis Date Arthritis Cancer (CMS/HCC) ([facility]) Disease of thyroid gland Past Surgical History: Past Surgical History: Procedure Laterality Date BACK SURGERY CHOLECYSTECTOMY COLON SURGERY THYMECTOMY stated per patient, for cancer removal Admission Diagnosis: Patient Active Problem List Diagnosis Date Noted Acquired hypothyroidism 03/04/2024 Chronic interstitial cystitis 03/03/2024 Stage 3a chronic kidney disease (HCC) 01/12/2023 NSIP (nonspecific interstitial pneumonitis) ([facility]) 10/30/2022 Esophageal dysmotility 07/31/2020 ILD (interstitial lung disease) ([facility]) 03/25/2020 Lung nodules 02/12/2020 Post-menopausal [...] Responsibilities: Independent Receives Help From: None Active Lever Miller: Yes 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 Report called to JUAN Recio [...] - 03/07/2024 7:56 AM EDT Endoscopy Center- [facility] Patient Name: Eren Merchant Procedure Date: 03/07/2024 7:56 AM Gender: Female Date of : 1960 Age: 63 Admit Type: Inpatient Note Status: Finalized Endoscopist: Jennifer Sung MD, [id number] Procedure: Upper GI endoscopy Indications: Epigastric abdominal [...] immediate complications. Procedure Code(s): --- Professional --- 52684, Esophagogastroduodenoscopy, flexible, transoral; with biopsy, single or multiple --- Technical --- 44384, Esophagogastroduodenoscopy, flexible, transoral; with biopsy, single or [...] parts of digestive tract CPT copyright 2021 [employer]. All rights reserved. The codes documented in this report are preliminary and upon web operations specialist review may be revised to meet current [...] Limits Permission given to speak with patient manufacturers service representative/caregiver as indicated: Yes Confirmation of Payer with patient/family: Yes Payer Name: [employer] Medicare [place]: No Confirmation of Primary Care Physician: Confirmed [...] Prescription Coverage: Yes Pharmacy Used: [facility] [place] Medication Management: Independent Transportation/Shopping: Independent Transportation Mode: [...] stent placement Surgeon Katherine Bowen MD Assist [facility] Anesthesia:general lma Ebl: Drains 6fr X 24cmJJ bilateral [place] , Specimen: Complications None; patient tolerated the procedure well. Findings: INDICATIONS: Eren Merchant , is a 63 y.o. female who presents [facility] bilateral [facility]. [facility] Repeat image [...] masses or lesions. Left Then a 0.035 [place] wire was advanced to the level of the kidney. A 6 fr x 24cmJJ stent was advancedover the wire through the cystoscope under fluoroscopic visualization. Once in position the wire was removed. A good curl was noted in the kidney and the bladder. Right Then a 0.035 [place] wire was advanced to the level of [...] or improved Outcome: Progressing documented in this [facility]10-23-2024 Plan of care note* Care Plan - Neelima Peng RN - 03/08/2024 7:11 PM EDT The patient is Moderately Stable - Low risk of patient condition declining or worsening The patient's goals for the shift include admission and pain control The clinical goals for the shift include admission [facility] [id number] Nurse Note* Karen Garcai RN - 03/08/2024 2:07 PM EDT Pt asked if she could go to the bathroom by herself. I advised that she is still a high fall risk and we want her to please use the call light for help to get up to the bathroom. Pt verbalized understanding. [facility] [id number] Nurse Note* Karen Garcia RN - 03/08/2024 [...] in alone with cards for [employer] and battery charger tester. Patient said they could be brought in on Wednesday. * Bertha Zavala RN - 03/05/2024 3:24 AM EDT Patient had orthostatic vitals taken, blood pressure standing was 83/55. Rapid notified, told to reach out to doctor. Doctor notified and no further orders placed. Waited on transportation but told by nursing track repair supervisor patient okay to take over in wheelchair. Patient taken to H6 in stable condition. documented in this [facility]10-23-2024 Note* Care Coordination - [...] assist and follow as needed. at8:26 AM [facility] HospitalPgxmyc33-70-8721 Note* Care Coordination - Lola Howe RN - 03/08/2024 8:21 AM EDT Case Management Progress Note: Patient remains on H6 s/p b/l uretal stent insertion 03/05/2024. Regular diet noted. Neuro following. EEG negative. MRI/MRA negative. EGD demonstrated brad esophagitis, Diflucan noted. Nephrology/Urology following. IV Rocephin noted. Urine, no growth final. Discharge Plan: TBD. TCC to assist and follow as needed. at8:26 AM T [facility] HospitalVmdwvf66-31-1685 NoteCase Management Progress Note: Patient remains on H6 s/p b/l uretal stent insertion 03/05/2024. Regular diet noted. Neuro following. EEG negative. MRI/MRA negative. EGD demonstrated brad esophagitis, Diflucan noted. Nephrology/Urology following. IV Rocephin noted. Urine, no growth final. Discharge Plan: TBD. TCC to assist and follow as needed. [facility]10-23-2024 Note Hospitalist Progress Note 03/08/2024 Subjective: Admit Date: 03/04/2024 PCP: Priyanka Smith Room#: [id number] A BRIEF HOSPITAL COURSE: Eren is a [...] seizure activity, signed off Urine culture from [place] on 03/05 shows Proteus mirabilis [place] Count 80,000-100,000 Proteus mirabilis: REACTION Ampicillin Islt [...] antibiotic stewardship team her urine culture from [place] on 03/05 shows Proteus mirabilis [place] Count 80,000-100,000 Proteus mirabilis: REACTION Ampicillin Islt [...] monitored and maintained or improved Outcome: Progressing [facility] HospitalKknvpf26-38-3974 Plan of care note* Care Plan - [...] monitored and maintained or improved Outcome: Progressing [facility] HospitalWtdyyn93-71-3379 Consult note* Pepito Steve MD - 03/07/2024 1:47 PM EDT Associated Order(s): IP CONSULT TO NEPHROLOGY [facility] Consultation Note Reason for consultation: Hypotension Chief Complaint: Outside hospital transfer History of Presenting Illness Patient is a 63 y.o. female with PMHx noted below who presented to [facility] ED on [facility]. Patient presented for ml [...] cystitis. Given concern for malignancy[facility] for further [...] with nephrology under Regulo Mendoza MD with [facility]. Scr is currently 2.35. As high [...] Resource Strain: High Risk (03/26/2020) Received from [facility] Overall Financial Resource Strain (CARDIA) Difficulty of Paying Living Expenses: Very hard Food Insecurity: No Food Insecurity (03/26/2020) Received from [facility] Hunger Vital Sign Worried About Running Out of Food in the Last Year: Never true Ran Out of Food in the Last Year: Never true Transportation Needs: No Transportation Needs (03/26/2020) Received from [facility] PRAPARE - Transportation Lack of Transportation (Medical): No Lack of Transportation (Non-Medical): No Physical Activity: Inactive (06/22/2023) Received from [facility] Exercise Vital Sign Days of Exercise per Week: 0 days Minutes of Exercise per Session: 0 min Stress: No Stress Concern Present (09/03/2019) Received from [facility] [place] of Occupational Health - Occupational Stress Questionnaire Feeling of Stress : Not at all Social Connections: Unknown (03/01/2020) Received from [facility] Social Connection and Isolation Panel [NHANES] [...] by mouth Nightly. AVS from 03/03 from [facility] with Dr. Benitez states: discontinue the [...] 2 times daily. 1000 mg in morning [id number] at night per patient predniSONE (Deltasone) 5 [...] vitals -Rest of management per primary team [facility] HospitalOdosxr17-17-6740 [facility] Reason for consultation: Hypotension Chief Complaint: Outside hospital transfer History of Presenting Illness Patient is a 63 y.o. female with PMHx noted below who presented to [facility] ED on 03/04/2024 as transfer from [facility] ED. Patient presented for ml [...] cystitis. Given concern for malignancy, [facility] recommended transfer and medical admission for [...] with nephrology under Regulo Mendoza MD with [facility]. Scr is currently 2.35. As high [...] Resource Strain: High Risk (03/26/2020) Received from [facility] Overall Financial Resource Strain (CARDIA) Difficulty of Paying Living Expenses: Very hard Food Insecurity: No Food Insecurity (03/26/2020) Received from [facility] Hunger Vital Sign Worried About Running Out of Food in the Last Year: Never true Ran Out of Food in the Last Year: Never true Transportation Needs: No Transportation Needs (03/26/2020) Received from [facility] PRAPARE - Transportation Lack of Transportation (Medical): No Lack of Transportation (Non-Medical): No Physical Activity: Inactive (06/22/2023) Received from [facility] Exercise Vital Sign Days of Exercise per Week: 0 days Minutes of Exercise per Session: 0 min Stress: No Stress Concern Present (09/03/2019) Received from [facility] [place] of Occupational Health - Occupational Stress Questionnaire Feeling of Stress : Not at all Social Connections: Unknown (03/01/2020) Received from [facility] Social Connection and Isolation Panel [NHANES] [...] by mouth Nightly. AVS from 03/03 from [place] (more content not included)...[facility]10-22-2024 Consult note* Pepito Steve MD - 03/07/2024 1:47 PM EDTAssociated Order(s): [facility] Reason for consultation: Hypotension Chief Complaint: Outside hospital transfer History of Presenting Illness Patient is a 63 y.o. female with PMHx noted below who presented to [facility] ED on 03[facility]04[facility]. Patient presented for ml [...] cystitis. Given concern for malignancy[facility] medical [facility] for further [...] with nephrology under Regulo Mendoza MD with [facility]. Scr is currently 2.35. As high [...] Resource Strain: High Risk (03/26/2020) Received from [facility] Overall Financial Resource Strain (CARDIA) Difficulty of Paying Living Expenses: Very hard Food Insecurity: No Food Insecurity (03/26/2020) Received from [facility] Hunger Vital Sign Worried About Running Out of Food in the Last Year: Never true Ran Out of Food in the Last Year: Never true Transportation Needs: No Transportation Needs (03/26/2020) Received from [facility] PRAPARE - Transportation Lack of Transportation (Medical): No Lack of Transportation (Non-Medical): No Physical Activity: Inactive (06/22/2023) Received from [facility] Exercise Vital Sign Days of Exercise per Week: 0 days Minutes of Exercise per Session: 0 min Stress: No Stress Concern Present (09/03/2019) Received from [facility] [place] [employer] - Occupational Stress Questionnaire Feeling of Stress : Not at all Social Connections: Unknown (03/01/2020) Received from [facility] Social Connection and Isolation Panel [NHANES] [...] by mouth Nightly. AVS from 03/03 from [facility] with Dr. Benitez states: discontinue the [...] 2 times daily. 1000 mg in morning [id number] at night per patient predniSONE (Deltasone) 5 [...] 80.7 PLT 466* 462* 548* Recent Labs 03/05/2439903/06/2452203/07/24 0140 NA 133* 132* 133* K 4.2 [...] PATTON MD 03/05/24 12:28 PM - Page communications instructor resident with questions. Cosigned by Katherine Bowen MD at 03/05/2024 4:08 PM EDT Associated attestation - Katherine Bwoen MD - 03/05/2024 4:08 PM EDT I reviewed history , exam and discussed with Resident. I have independently evaluated patient and agree with the evaluation and plan. Katherine Bowen MD 03/05/24 4:08 PM * Kayli Velasquez MD - 03/05/2024 9:37 AM EDT General Neurology Consult Patient: Eren Merchant Date of : 1960 Acct: [id number] PCP: Priyanka Smith Date of Admission: 03/04/2024 [...] recent episodes which prompted her transfer to [facility] for further workup. On 02/26/24, patient [...] office on 03/03/24. 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 Head trauma (no); 2. EDUCATIONAL DIRECTOR infections (no); 3. Family history of seizures (yes, brother); 4. Developmental delay (no); 5. Febrile seizures (no); 6. EDUCATIONAL DIRECTOR tumors (no); 7. EDUCATIONAL DIRECTOR vascular disease (no); 8. Significant medical history: CKD, ILD, current complicated UTI; 9. and early development: normal and early development Patient presented to [facility] and was found to be tachycardic. 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 As far as neurologic history: Patient [...] 2 times daily. 1000 mg in morning [id number] at night per patient Historical Provider, predniSONE [...] mg, 40 mg, Oral, BID AC, Maurilio Grvoes MD, 40 mg at 03/05/24 0600 polyethylene [...] Right: flexor Left: flexor Labs: Recent Labs 03/04/24182703/05/24 0400 WBC 15.3* 12.4* HGB 12.0 12.3 HCT 37.2 38.2 PLT 421 466* Recent Labs 03/04/24182703/05/24 0400 NA 131* 133* K 4.1 4.2 CL 104 102 CO2 18* 17* BUN 58* 60* CREATININE 2.46* 2.67* CALCIUM 10.5* 11.3* Recent Labs 03/04/241827 AST 27 ALT 17 BILITOT 0.5 ALKPHOS 96 Recent Labs 10/19/24 1828 ALKPHOS 96 ALT 17 AST 27 BILITOT 0.5 Radiology: (personally reviewed) CT Head w/o contrast 03/04/24 ([facility]) Per report: no acute intracranial abn [...] and states has dysmotility. She was on terminal carman reglan and ended up having drug induced [...] interstitial cystitis 03/03/2024 ILD (interstitial lung disease) (HCC) 03/25/2020 Lung nodules 02/12/2020 NSIP (nonspecific interstitial pneumonitis) (HCC) 10/30/2022 Stage 3a chronic kidney disease (HCC) [...] Resource Strain: High Risk (03/26/2020) Received from [facility] Overall Financial Resource Strain (CARDIA) Difficulty of Paying Living Expenses: Very hard Food Insecurity: No Food Insecurity (03/26/2020) Received from [facility] Hunger Vital Sign Worried About Running Out of Food in the Last Year: Never true Ran Out of Food in the Last Year: Never true Transportation Needs: No Transportation Needs (03/26/2020) Received from [facility] PRAPARE - Transportation Lack of Transportation (Medical): No Lack of Transportation (Non-Medical): No Physical Activity: Inactive (06/22/2023) Received from [facility] Exercise Vital Sign Days of Exercise per Week: 0 days Minutes of Exercise per Session: 0 min Stress: No Stress Concern Present (09/03/2019) Received from [facility] [place] of Occupational Health - Occupational Stress Questionnaire Feeling of Stress : Not at all Social Connections: Unknown (03/01/2020) Received from [facility] Social Connection and Isolation Panel [NHANES] Frequency of Communication with Friends and Family: Three times a week Frequency of Social Gatherings with Friends and Family: Three times a week Attends [employer]: Not on file Active Member of [...] discussed with the patient. 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 Usually we ll treat for brad esophagitis empirically however with no recent EGD and concerning CT findings which is not available for review, needs further investigation. Her current acute issue is sepsis however, once her hemodynamics are improved, can perform an EGD to rule out any advanced lesion given the imaging findings. If negative, recommend she establishes with a local GI in [place] for ongoing care for dysmotility. Will follow the clinical course. No EGD planned for tomorrow. [facility] GI documented in this [facility]10-22-2024 Note* Post-Procedure Note - Lisette Dunbar RN - 03/07/2024 10:24 AM EDT POST ENDOSCOPY PROCEDURE TRANSFER REPORT Physician: Procedure completed: EGD Specimens obtained: antrum bx Medications administered: see anesthesia note Findings: see physician's note Complications: n/a Please call the Main Endoscopy Dept at [phone] for questions. Report called to JUAN Recio on H6 [facility] HospitalSkltwd76-61-0533 Note* Post-Procedure Note - Lisette Dunbar RN - 03/07/2024 10:24 AM EDT POST ENDOSCOPY PROCEDURE TRANSFER REPORT Physician: Procedure completed: EGD Specimens obtained: antrum bx Medications administered: see anesthesia note Findings: see physician's note Complications: n/a Please call the Main Endoscopy Dept at [phone] for questions. Report called to JUAN Recio on H6 [facility] HospitalFslfva44-70-1622 NotePOST ENDOSCOPY PROCEDURE TRANSFER REPORT Physician: Procedure completed: EGD Specimens obtained: antrum bx Medications administered: see anesthesia note Findings: see physician's note Complications: n/a Please call the Main Endoscopy Dept at [phone] for questions. Report called to JUAN Recio on [address]10-22-2024 Telephone encounter Note* Telephone Encounter - Cecilia Barney PA-C - 03/07/2024 10:24 AM EDT Patient evaluated inpatient, needs repeat EGD in 8 weeks. Not established, patient lives in [place], please call and see if she would like to follow up with us and if not send records to her preferred follow up physician. [facility] HospitalQeaoxh25-20-0937 Miscellaneous Notes* Telephone Encounter - Cecilia Barney PA-C - 03/07/2024 10:24 AM EDT Patient evaluated inpatient, needs repeat EGD in 8 weeks. Not established, patient lives in [place], please call and see if she would like to follow up with us and if not send records to her preferred follow up physician. documented in this encounterSumma [id number] NotePatient: Eren Merchant Procedure Summary Date: 03/07/24 Room / Location: [facility] ENDO 7 / [facility] Gastroenterology Anesthesia Start: 1000 Anesthesia Stop: 1012 Procedure: ESOPHAGOGASTRODUODENOSCOPY WITH BIOPSY [...] Procedure Summary Date: 03/07/24 Room / Location: [facility] ENDO 7 / [facility] Gastroenterology Anesthesia Start: 999 Anesthesia Stop: 1012 [...] questions and acknowledgement of understanding.[facility]10-22-2024 NoteHospitalist Progress Note 03/07/2024 Subjective: Admit Date: [...] output data in the 24 hours ending 03/07/24930 Past Medical History: Past Medical History: Diagnosis [...] not included)...[facility]10-22-2024 NotePatient: Eren Herrera Shonda Procedure Information Date/Time: 03/07/24 9743 Procedure: ESOPHAGOGASTRODUODENOSCOPY WITH BIOPSY [facility] ENDO [facility] / [facility] G[facility] Providers: Jennifer [...] TCC to assist and follow as needed. [facility] HospitalUyvrcv24-35-4742 Note* Care Coordination - Lola Howe RN - 03/07/2024 8:01 AM EDT Case Management Progress Note: Patient remains on H6 s/p b/l uretal stent insertion 03/05/2024. Regular diet noted. Neuro following. EEG negative. MRI/MRA pending. GI following, plan for EGD d/t dysphagia. Urology following. IV Rocephin noted. Urine, no growth final. Discharge Plan: TBD. TCC to assist and follow as needed. [facility] HospitalOcjvqb45-43-2314 NoteCase Management Progress Note: Patient remains on H6 s/p b/l uretal stent insertion 03/05/2024. Regular diet noted. Neuro following. EEG negative. MRI/MRA pending. GI following, plan for EGD d/t dysphagia. Urology following. IV Rocephin noted. Urine, no growth final. Discharge Plan: TBD. TCC to assist and follow as needed. [facility]10-22-2024 Note* Op Note - Jennifer Sung MD - 03/07/2024 7:56 AM EDT Endoscopy Center- [facility] Patient Name: Eren Merchant Procedure Date: 03/07/2024 7:56 AM Gender: Female Date of : 1960 Age: 63 Admit Type: Inpatient Note Status: Finalized Endoscopist: Jennifer Sung MD, [id number] Procedure: Upper GI endoscopy Indications: Epigastric abdominal [...] immediate complications. Procedure Code(s): --- Professional --- 51689, Esophagogastroduodenoscopy, flexible, transoral; with biopsy, single or multiple --- Technical --- 86244, Esophagogastroduodenoscopy, flexible, transoral; with biopsy, single or [...] parts of digestive tract CPT copyright 2021 [employer]. All rights reserved. The codes documented in this report are preliminary and upon web operations specialist review may be revised to meet current compliance requirements. Jennifer Sung MD 03/07/2024 10:28:23 AM This report has been signed electronically. Number of Addenda: 0 Note Initiated On: 03/07/2024 7:56 AM Curbside Phone: 1(470) 512-648010-22-2024 Note* Op Note - Jennifer Sung MD - 03/07/2024 7:56 AM EDT Endoscopy Center- [facility] Patient Name: Eren Merchant Procedure Date: 03/07/2024 7:56 AM Gender: Female Date of : 1960 Age: 63 Admit Type: Inpatient Note Status: Finalized Endoscopist: Jennifer Sung MD, [id number] Procedure: Upper GI endoscopy Indications: Epigastric abdominal [...] immediate complications. Procedure Code(s): --- Professional --- 27574, Esophagogastroduodenoscopy, flexible, transoral; with biopsy, single or multiple --- Technical --- 95288, Esophagogastroduodenoscopy, flexible, transoral; with biopsy, single or [...] parts of digestive tract CPT copyright 2021 [employer]. All rights reserved. The codes documented in this report are preliminary and upon web operations specialist review may be revised to meet current compliance requirements. Jennifer Sung MD 03/07/2024 10:28:23 AM This report has been signed electronically. Number of Addenda: 0 Note Initiated On: 03/07/2024 7:56 AM [facility] Curbside Phone: 1(600) 299-593510-22-2024 [facility] Name: Eren Merchant Procedure Date: 03/07/2024 7:56 AM Gender: Female Date of : 1960 Age: 63 Admit Type: Inpatient Note Status: Finalized Endoscopist: Jennifer uSng MD, [id number] Procedure: Upper GI endoscopy Indications: Epigastric abdominal [...] immediate complications. Procedure Code(s): --- Professional --- 79873, Esophagogastroduodenoscopy, flexible, transoral; with biopsy, single or multiple --- Technical --- 00379, Esophagogastroduodenoscopy, flexible, transoral; with biopsy, single or [...] parts of digestive tract CPT copyright 2021 [employer]. All rights reserved. The codes documented in this report are preliminary and upon web operations specialist review may be revised to meet current compliance requirements. Jennifer Sung MD 03/07/2024 10:28:23 AM This report has been signed electronically. Number of Addenda: 0 Note Initiated On: 03/07/2024 7:56 [facility] [id number] Plan of care note* Care Plan - [...] monitored and maintained or improved Outcome: [facility]ing [facility] [id number] Note* Care Coordination - Lola Howe RN - 03/06/2024 2:01 PM EDT Care Managment Initial Assessment Date: 03/06/2024 Patient Name: Eren Merchant : 1960 Patient Information Source of Information: Patient Cognition/Language: WFL - Within Functional Limits Permission given to speak with patient manufacturers service representative/caregiver as indicated: Yes Confirmation of Payer with patient/family: Yes Payer Name: [employer] Medicare [place]: No Confirmation of Primary Care Physician: Confirmed [...] Prescription Coverage: Yes Pharmacy Used: [facility] [place] Medication Management: Independent Transportation/Shopping: Independent Transportation [...] and follow as needed. Lola Howe RN [facility] HospitalMgpqsf42-15-8721 Note* Care Coordination - Lola Howe RN - 03/06/2024 2:01 PM EDT Care Managment Initial Assessment Date: 03/06/2024 Patient Name: Eren Merchant : 1960 Patient Information Source of Information: Patient Cognition/Language: WFL - Within Functional Limits Permission given to speak with patient manufacturers service representative/caregiver as indicated: Yes Confirmation of Payer with patient/family: Yes Payer Name: [employer] Medicare [place]: No Confirmation of Primary Care Physician: Confirmed [...] Prescription Coverage: Yes Pharmacy Used: [facility] [place] Medication Management: Independent Transportation/Shopping: Independent Transportation [...] and follow as needed. Lola Howe RN [facility] HospitalYnrsdf19-36-5076 [facility] [address] [place] [id number] ROUTINE EEG REPORT Patient Name: Eren Merchant : 1960 Date of Study: 03/06/24 Duration Recorded: 24 Minutes EEG#: [id number] MEDICATION COORDINATOR: Cleo GARCÍA T. PROVIDER REQUESTING STUDY: Kayli [...] recent episodes which prompted her transfer to [facility] for further workup. On 02/26/24, patient [...] office on 03/03/24. She walked up to director of strategic alliances desk, all of a sudden both arms [...] Mini-Bag Plus 1,000 mg IntraVENous q24h Jay Balck MD Stopped at 03/06/24 0551 fludrocortisone (Florinef) [...] study with video was carried out at [facility]. Scalp electrodes were positioned in person by an cardiopulmonary technologist, following patient education, according to the 10-20 International system of electrode placement and maintained for integrity and quality of the recording. EEG data with video was recorded continuously and digitally stored. The cardiopulmonary technologist reviewed all automated detections and manual events and prepared the data for archiving and provider review. Referential and bipolar montages were used for review. TECHNOLOGIST NOTES: No skull or scalp defects were observed. BACKGROUND ACTIVITY: Posterior background activity: A continuous organized and well-modulated 8 Hz (more content not included)...[facility]10-21-2024 [facility]LE[facility]Y [facility] EEG LABORATORY [address] [place] [id number] ROUTINE EEG REPORT Patient Name: Eren Merchant : 1960 Date of Study: 03/06/2024 Duration Recorded: 24 Minutes EEG#: [id number] MEDICATION COORDINATOR: Cleo Cano. PROVIDER REQUESTING STUDY: Kayli Velasquez [...] recent episodes which prompted her transfer to [facility] for further workup. On 02/26/24, patient [...] office on 03/03/24. She walked up to director of strategic alliances desk, all of a sudden both arms [...] study with video was carried out at [facility]. Scalp electrodes were positioned in person by an cardiopulmonary technologist, following patient education, according to the 10-20 International system of electrode placement and maintained for integrity and quality of the recording. EEG data with video was recorded continuously and digitally stored. The cardiopulmonary technologist reviewed all automated detections and manual [...] from the original note were not included. [facility] EPILEPSY C[facility] & EEG LABORATORY [address] [place] [id number] ROUTINE EEG REPORT Patient Name: Eren Merchant : 1960 Date of Study: 03/06/2024 Duration Recorded: 24 Minutes EEG#: [id number] MEDICATION COORDINATOR: Cleo Cano. PROVIDER REQUESTING STUDY: Kayli Velasquez [...] recent episodes which prompted her transfer to [facility] for further workup. On 02/26/24, patient [...] office on 03/03/24. She walked up to director of strategic alliances desk, all of a sudden both arms [...] Mini-Bag Plus 1,000 mg IntraVENous q24h Jay Balck MD Stopped at 03/06/24 0551 fludrocortisone (Florinef) [...] study with video was carried out at [facility]. Scalp electrodes were positioned in person by an cardiopulmonary technologist, following patient education, according to the 10-20 International system of electrode placement and maintained for integrity and quality of the recording. EEG data with video was recorded continuously and digitally stored. The cardiopulmonary technologist reviewedall automated detections and manual events [...] Neurophysiologist Mario Angel MD PhD Epilepsy Attending [facility] [employer] Work Phone: [phone] 547-281810-21-2024 Procedure note* Mario Angel MD PhD - 03/06/2024 11:31 AM EDTAssociated Order(s): EEG Images from the original note were not included. [facility] EPILEPSY C[facility] EEG LABORATORY [address] [place] [id number] ROUTINE EEG REPORT Patient Name: Eren Merchant : 1960 Date of Study: 03/06/2024 Duration Recorded: 24 Minutes EEG#: [id number] MEDICATION COORDINATOR: Cleo Claire PROVIDER REQUESTING STUDY: Kayli Velasquez [...] recent episodes which prompted her transfer to [facility] for further workup. On 02/26/24, patient [...] office on 03/03/24. She walked up to director of strategic alliances desk, all of a sudden both arms [...] study with video was carried out at [facility]. Scalp electrodes were positioned in person by an cardiopulmonary technologist, following patient education, according to the 10-20 International system of electrode placement and maintained for integrity and quality of the recording. EEG data with video was recorded continuously and digitally stored. The cardiopulmonary technologist reviewedall automated detections and manual events [...] MD PhD Epilepsy Attending documented in this [facility]10-21-2024 NoteHospitalist Progress Note 03/06/2024 Subjective: Admit Date: 03/04/2024 PCP: Priyanka Smith Room#: [id number] A BRIEF HOSPITAL COURSE: Eren is a [...] monitored and maintained or improved Outcome: Progressing [facility] HospitalSdmpez93-00-5426 Telephone encounter Note* Telephone Encounter - Geri Wong MA - 03/06/2024 8:12 AM EDT Per Caitlin, sent in error. Will disregard. TY [facility] HospitalAnsorb17-94-8607 Miscellaneous Notes* Telephone Encounter - Geri Wong [...] pain and elevated LFTs. documented in this [facility]10-21-2024 Telephone encounter Note* Telephone Encounter - Cecilia Barney PA-C - 03/06/2024 8:08 AM EDT Patient to have repeat LFTs in 1 week as ordered by primary team during inpatient stay. Please schedule patient for hospital follow up for abdominal pain and elevated LFTs. [facility] [id number] NoteDepartment of Internal Medicine Gastroenterology Progress Note [...] and states has dysmotility. She was on detention reglan and ended up having drug induced [...] AC, Jay Black MD, 100 mcg at 03/06/2421 melatonin tablet 3 mg, 3 mg, Oral, [...] monitored and maintained or improved Outcome: Progressing [facility] HospitalDwhypv65-03-0810 Note* Perioperative Nursing Note - Reji Lopez RN - 03/05/2024 6:54 PM EDT Pt ambulated to restroom with RN assist x 1, voided twice adequately. Returned to bed and transporttaking pt to room. [facility] HospitalUreyjf43-25-0426 Note* Perioperative Nursing Note - Reji Lopez RN - 03/05/2024 6:54 PM EDT Pt ambulated to restroom with RN assist x 1, voided twice adequately. Returned to bed and transporttaking pt to room. [facility] HospitalZkegqx15-02-5153 Note* Perioperative Nursing Note - Reji Lopez RN - 03/05/2024 6:41 PM EDT Pt doing well, awake and drinking water, no complaints, attempted bedpan but was unable, pt states she can wait to try the restroom in a little while. Report called and in for transport. [facility] HospitalQonbkf80-79-3178 Note* Perioperative Nursing Note - Reji Lopez RN - 03/05/2024 6:41 PM EDT Pt doing well, awake and drinking water, no complaints, attempted bedpan but was unable, pt states she can wait to try the restroom in a little while. Report called and in for transport. [facility] HospitalCgzecc07-86-9293 NotePatient: Eren Merchant Procedure Summary Date: 03/05/24 Room / Location: [address] Operating Room Anesthesia Start: 1705 Anesthesia Stop: 1743 Procedure: CYSTOSCOPY, BILATERAL URETERAL STENT INSERTION (Bilateral: Urethra) Diagnosis: Hydronephrosis with urinary obstruction due to ureteral calculus Surgeons: Katherine Bowen MD Responsible Provider: Curt Bautista MD Anesthesia Type: general ASA Status: 2 Anesthesia Type: general Vitals Value Taken Time BP 90/50 03/05/241747 Temp 36.1 03/05/241747 Pulse 102 03/05/241747 Resp 16 03/05/241747 SpO2 100 % 03/05/241747 Vitals shown include [...] Summary Date: 03/05/24 Room / Location: [address] Operating Room Anesthesia Start: 1706 Anesthesia Stop: 1744 Procedure: CYSTOSCOPY, BILATERAL URETERAL STENT INSERTION (Bilateral: Urethra) Diagnosis: Hydronephrosis with urinary obstruction due to ureteral calculus Surgeons: Katherine Bowen MD Responsible Provider: Curt Bautista MD Anesthesia Type: general ASA Status: 2 Anesthesia Type: general Vitals Value Taken Time BP 90/50 03/05/24 1748 Temp 36.1 03/05/24 1748 Pulse 101 03/05/247 Resp 16 03/05/241747 SpO2 100 % 03/05/241746 Vitals shown include unfiled device data. Anesthesia [...] in alone with cards for [employer] and battery charger tester. Patient said they could be brought in on Wednesday. [facility] HospitalLzqdva35-17-8113 NoteAirway Date/Time: 03/05/2024 5:11 PM Urgency: scheduled Airway not difficult General Information and Staff Patient location during procedure: Procedural Resident/STATISTICAL TYPIST: Jasmyne Cuba APRN - STATISTICAL TYPIST Performed: STATISTICAL TYPIST Indications and Patient Condition Indications for airway management: anesthesia and airway protection Sedation level: Asleep Preoxygenated: yes Patient position: sniffing Mask difficulty assessment: 0 - not attempted Final Airway Details Final airway type: supraglottic airway Successful airway: Igel Size 4 Number of attempts at approach: [address] [place], [place] [address]8210-20-2024 Note* Op Note - Katherine Bowen MD [...] [facility]. [facility] [...] masses or lesions. Left Then a 0.035 [place] wire was advanced to the level of the kidney. A 6 fr x 24cmJJ stent was advancedover the wire through the cystoscope under fluoroscopic visualization. Once in position the wire was removed. A good curl was noted in the kidney and the bladder. Right Then a 0.035 [place] wire was advanced to the level of the kidney. A 6fr x 24cmJJ stent was advanced over the wire through the cystoscope under fluoroscopic visualization. Once in position the wire wasremoved. A good curl was noted in the kidney and the bladder. The bladder was emptied and patient awoken from anesthesia. Katherine Bowen MD 03/05/24 5:49 PM Curbside Phone: [phone] Note* Op Note - Katherine Bowen MD [...] presents with [facility]phrosis. [facility] Repeat image shows [...] masses or lesions. Left Then a 0.035 [place] wire was advanced to the level of the kidney. A 6 fr x 24cmJJ stent was advancedover the wire through the cystoscope under fluoroscopic visualization. Once in position the wire was removed. A good curl was noted in the kidney and the bladder. Right Then a 0.035 [place] wire was advanced to the level of the kidney. A 6fr x 24cmJJ stent was advanced over the wire through the cystoscope under fluoroscopic visualization. Once in position the wire wasremoved. A good curl was noted in the kidney and the bladder. The bladder was emptied and patient awoken from anesthesia. Katherine Bowen MD 03/05/24 5:49 PM [employer] Phone: [phone] 623-480510-20-2024 NotePatient: Eren Merchant Procedure Information Date/Time: 03/05/24 170 Procedure: CYSTOSCOPY WITH INSERTION URETERAL STENT (Bilateral: Urethra) Location: [facility] OR [address] [place] [address] Operating Room Surgeons: Katherine Bowen MD Relevant [...] [facility] Consult note* Bogdan Patton MD - 03/05/2024 [...] PATTON MD 03/05/24 12:28 PM - Page communications instructor resident with questions. Cosigned by Katherine Bowen MD at 03/05/2024 4:08 PM EDT Associated attestation - Katherine Bowen MD - 03/05/2024 4:08 PM EDT I reviewed history , exam and discussed with Resident. I have independently evaluated patient and agree with the evaluation and plan. Katherine Bowen MD 03/05/24 4:08 PM [facility] HospitalIsxoym67-59-8543 NoteHospitalist Progress Note 03/05/2024 Subjective: Admit Date: 03/04/2024 PCP: Priyanka Smith Room#: [id number] A BRIEF HOSPITAL COURSE: Eren is a [...] of thyroid gland LABS: CBC: Recent Labs 10182703/05/24 0400 WBC 15.3* 12.4* RBC 4.66 4.87 HGB 12.0 12.3 HCT 37.2 38.2 MCV 79.8 78.4 RDW 15.2* 15.3* PLT 421 466* BMP: Recent Labs 03/04/248 03/05/24 0400 NA 131* [...] Eren Merchant Date of : 1960 Acct: [id number] PCP: Priyanka Smith Date of Admission: 03/04/2024 [...] recent episodes which prompted her transfer to [facility] for further workup. On 02/26/24, patient [...] office on 03/03/24. 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 Head trauma (no); 2. EDUCATIONAL DIRECTOR infections (no); 3. Family history of seizures (yes, brother); 4. Developmental delay (no); 5. Febrile seizures (no); 6. EDUCATIONAL DIRECTOR tumors (no); 7. EDUCATIONAL DIRECTOR vascular disease (no); 8. Significant medical history: CKD, ILD, current complicated UTI; 9. and early development: normal and early development Patient presented to [facility] and was found to be tachycardic. 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 As far as neurologic history: Patient [...] 2 times daily. 1000 mg in morning [id number] at night per patient Historical Provider, predniSONE [...] Right: flexor Left: flexor Labs: Recent Labs 03/04/24182703/05/24 0400 WBC 15.3* 12.4* HGB 12.0 12.3 HCT 37.2 38.2 PLT 421 466* Recent Labs 03/04/24182703/05/24 0400 NA 131* 133* K 4.1 4.2 CL 104 102 CO2 18* 17* BUN 58* 60* CREATININE 2.46* 2.67* CALCIUM 10.5* 11.3* Recent Labs 10/19/24 1828 AST 27 ALT 17 BILITOT 0.5 ALKPHOS 96 Recent Labs 03/04/24 1828 ALKPHOS 96 ALT 17 AST 27 BILITOT 0.5 Radiology: (personally reviewed) CT Head w/o contrast 03/04/24 ([facility]) Per report: no acute intracranial abn [...] documenting on the day of the visit. [employer] Work Phone: [phone]) 948-382410-20-2024 Consult note* Lexii Pablo MD - 03/05/2024 [...] and states has dysmotility. She was on terminal carman reglan and ended up having drug induced [...] IntraVENous, q24h, Maurilio Groves MD, Stopped at 03/05/241 fludrocortisone (Florinef) tablet 0.1 mg, 0.1 mg, [...] tablet 5 mg, 5 mg, Oral, Daily, aMurilio Groves MD sodium chloride 0.9 % infusion, 5-250 mL/hr, IntraVENous, PRN, Maurilio Groves MD sodium chloride 0.9% (NS) flush 5-40 mL, 5-40 mL, IntraVENous, q12h, Maurilio Groves MD, 10 mL at 03/05/24 0245 sodium chloride 0.9% (NS) flush 5-40 mL, 5-40 mL, IntraVENous, PRN, Maurilio Groves MD sucralfate (Carafate) tablet 1 g, 1 g, Oral, 4x daily PRN, Muarilio Groves MD Past Medical History: Active Ambulatory Problems Diagnosis Date Noted Esophageal dysmotility 07/31/2020 Hyponatremia 06/14/2018 Chronic interstitial cystitis 03/03/2024 ILD (interstitial lung disease) (HCC) 03/25/2020 Lung nodules 02/12/2020 NSIP (nonspecific interstitial pneumonitis) (HCC) 10/30/2022 Stage 3a chronic kidney disease (HCC) [...] Resource Strain: High Risk (03/26/2020) Received from [facility] Overall Financial Resource Strain (CARDIA) Difficulty of Paying Living Expenses: Very hard Food Insecurity: No Food Insecurity (03/26/2020) Received from [facility] Hunger Vital Sign Worried About Running Out of Food in the Last Year: Never true Ran Out of Food in the Last Year: Never true Transportation Needs: No Transportation Needs (03/26/2020) Received from [facility] PRAPARE - Transportation Lack of Transportation (Medical): No Lack of Transportation (Non-Medical): No Physical Activity: Inactive (06/22/2023) Received from [facility] Exercise Vital Sign Days of Exercise per Week: 0 days Minutes of Exercise per Session: 0 min Stress: No Stress Concern Present (09/03/2019) Received from [facility] [place] [facility] [employer] [facility] - Occupational Stress Questionnaire Feeling of Stress : Not at all Social Connections: Unknown (03/01/2020) Received from [facility] Social Connection and Isolation Panel [NHANES] Frequency of Communication with Friends and Family: Three times a week Frequency of Social Gatherings with Friends and Family: Three times a week Attends [employer]: Not on file Active Member of [...] discussed with the patient. 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 Usually we ll treat for brad esophagitis empirically however with no recent EGD and concerning CT findings which is not available for review, needs further investigation. Her current acute issue is sepsis however, once her hemodynamics are improved, can perform an EGD to rule out any advanced lesion given the imaging findings. If negative, recommend she establishes with a local GI in [place] for ongoing care for dysmotility. Will follow the clinical course. No EGD planned for tomorrow. [facility] Curbside Phone: [phone] Plan of care note* Care Plan - [...] monitored and maintained or improved Outcome: Progressing [facility] [id number] Nurse Note* Bertha Zavala RN - 03/05/2024 3:24 AM EDT Patient had orthostatic vitals taken, blood pressure standing was 83/55. Rapid notified, told to reach out to doctor. Doctor notified and no further orders placed. Waited on transportation but told by nursing track repair supervisor patient okay to take over in wheelchair. Patient taken to in stable condition. [facility] HospitalPedkkf89-50-5819 History and physical note* Maurilio Groves MD - 03/04/2024 2:37 PM EDT Attending History and Physical Admit Date: 03/04/2024 PCP: Priyanka Smith CHIEF COMPLAINT: OSH transfer Reason for Admission: Eren Henry, 1960 is at [facility] ED. Pt has been in ED at [place] for pyelonephritis with possible neoplastic process. Hospitalist at [place] unable to care for pt at [place]. Pt cannot have contrast due to MANJIT (creat 3.1). [place] reached out to [facility] yesterday but still don't have a bed. Dr Jaguar Mckeon spoke with Dr. Noel Contreras here at [facility] and pt accepted to [facility] by Dr Contreras. History Obtained From: [...] day of admission. Ultimately pt presented to [facility] for chief complaint of seizure-like [...] cystitis. Given concern for malignancy, [facility]rology [place] [facility] recommended transfer and medical admission for further workup. Prior to her transfer, ED started pt on fludrocortisone 0.1mg PO BID. Upon assessment at [facility], pt reiterated much of what was [...] Resource Strain: High Risk (03/26/2020) Received from [facility] Overall Financial Resource Strain (CARDIA) Difficulty of Paying Living Expenses: Very hard Food Insecurity: No Food Insecurity (03/26/2020) Received from [facility] Hunger Vital Sign Worried About Running Out of Food in the Last Year: Never true Ran Out of Food in the Last Year: Never true Transportation Needs: No Transportation Needs (03/26/2020) Received from [facility] PRAPARE - Transportation Lack of Transportation (Medical): No Lack of Transportation (Non-Medical): No Physical Activity: Inactive (06/22/2023) Received from [facility] Exercise Vital Sign Days of Exercise per Week: 0 days Minutes of Exercise per Session: 0 min Stress: No Stress Concern Present (09/03/2019) Received from [facility] [place] [employer] - Occupational Stress Questionnaire Feeling of Stress : Not at all Social Connections: Unknown (03/01/2020) Received from [facility] Social Connection and Isolation Panel [NHANES] Frequency of Communication with Friends and Family: Three times a week Frequency of Social Gatherings with Friends and Family: Three times a week Attends [employer] Services: Not on file Active Member of [...] notes. -On admission, pt was discussed with [facility] urology whom recommended repeat imaging if [...] Merchant Mobile Relation: Son Preferred language: Bahamian Funeral Arranger needed? No Secondary Emergency Contact: Michael Merchant Mobile Relation: Significant Other Preferred language: Bahamian Funeral Arranger needed? No ADVANCED CARE PLANNING Eren Merchant : 1960 Primary Care Physician: Priyanka Smith The patient and/or family/surrogate voluntarily agreed to participate in ACP services. Patient s cognitive capacity: AOX4 Code Status: [X] [FULL CODE - Continue all advanced life support: CPR,intubation,invasive procedures] [_] [DNR-CCA - DO NOT do CPR, intubation] [_] [DNR-ASPHALT PLANT OPERATOR - Comfort care only] [_] DNR form [was/was not] signed Maurilio Groves MD Division of Hospitalist Medicine [facility] HospitalVwqqan20-10-0634 NoteAttending History and Physical Admit Date: 03/04/2024 PCP: Priyanka Smith CHIEF COMPLAINT: OSH transfer Reason for Admission: Eren Elaine, 1960 is at [facility] ED. Pt has been in ED at [place] for pyelonephritis with possible neoplastic process. Hospitalist at [place] unable to care for pt at [place]. Pt cannot have contrast due to MANJIT (creat 3.1). [place] reached out to [facility] yesterday but still don't have a bed. Dr Jaguar Mckeon spoke with Dr. Noel Contreras here at [facility] and pt accepted to [facility] by Dr Contreras. History Obtained From: Medical [...] day of admission. Ultimately pt presented to [facility] for chief complaint of seizure-like [...] cystitis. Given concern for malignancy, urology [place] [facility] recommended transfer and medical admission for further workup. Prior to her transfer, ED started pt on fludrocortisone 0.1mg PO BID. Upon assessment at [facility], pt reiterated much of what was [...] for Admission: Eren Henry, 1960 is at [facility] ED. Pt has been in ED at [place] for pyelonephritis with possible neoplastic process. Hospitalist at [place] unable to care for pt at [place]. Pt cannot have contrast due to MANJIT (creat 3.1). [place] reached out to [facility] yesterday but still don't have a bed. Dr Jaguar Mckeon spoke with Dr. Noel Contreras here at [facility] and pt accepted to [facility] by Dr Contreras. History Obtained From: [...] day of admission. Ultimately pt presented to [facility] for chief complaint of seizure-like [...] cystitis. Given concern for malignancy, urology at [facility] recommended transfer and medical admission for further workup. Prior to her transfer, ED started pt on fludrocortisone 0.1mg PO BID. Upon assessment at [facility], pt reiterated much of what was [...] for Admission: Eren Henry, 1960 is at [facility] ED. Pt has been in ED at [place] for pyelonephritis with possible neoplastic process. Hospitalist at [place] unable to care for pt at [place]. Pt cannot have contrast due to MANJIT (creat 3.1). [place] reached out to [facility] yesterday but still don't have a bed. Dr Jaguar Mckeon spoke with Dr. Noel Contreras here at [facility] and pt accepted to [facility] by Dr Contreras. History Obtained From: [...] day of admission. Ultimately pt presented to [facility] for chief complaint of seizure-like [...] cystitis. Given concern for malignancy, urology at [facility] recommended transfer and medical admission for further workup. Prior to her transfer, ED started pt on fludrocortisone 0.1mg PO BID. Upon assessment at [facility], pt reiterated much of what was [...] Resource Strain: High Risk (03/26/2020) Received from [facility] Overall Financial Resource Strain (CARDIA) Difficulty of Paying Living Expenses: Very hard Food Insecurity: No Food Insecurity (03/26/2020) Received from [facility] Hunger Vital Sign Worried About Running Out of Food in the Last Year: Never true Ran Out of Food in the Last Year: Never true Transportation Needs: No Transportation Needs (03/26/2020) Received from [facility] PRAPARE - Transportation Lack of Transportation (Medical): No Lack of Transportation (Non-Medical): No Physical Activity: Inactive (06/22/2023) Received from [facility] Exercise Vital Sign Days of Exercise per Week: 0 days Minutes of Exercise per Session: 0 min Stress: No Stress Concern Present (09/03/2019) Received from [facility] [place] [employer] Occupational Health - Occupational Stress Questionnaire Feeling of Stress : Not at all Social Connections: Unknown (03/01/2020) Received from [facility] Social Connection and Isolation Panel [NHANES] Frequency of Communication with Friends and Family: Three times a week Frequency of Social Gatherings with Friends and Family: Three times a week Attends [employer]: Not on file Active Member of [...] notes. -On admission, pt was discussed with [facility] urology whom recommended repeat imaging if [...] Merchant Mobile Relation: Son Preferred language: Bahamian Funeral Arranger needed? No Secondary Emergency Contact: Michael Merchant Mobile Relation: Significant Other Preferred language: Bahamian Funeral Arranger needed? No [employer]ING Eren Merchant : 1960 Primary Care Physician: Priyanka Smith The patient and/or family/surrogate voluntarily agreed to participate in ACP services. Patient s cognitive capacity: AOX4 Code Status: [X] [FULL CODE - Continue all advanced life support: CPR,intubation,invasive procedures] [_] [DNR-CCA - DO NOT do CPR, intubation] [_] [DNR-ASPHALT PLANT OPERATOR - Comfort care only] [_] DNR form [was/was not] signed Maurilio Groves MD [facility] documented in this [facility]10-18-2024 Note* Addendum Note - Bogdan Roberts MD - 03/03/2024 5:03 PM EDTAddended by: BOGDAN ROBERTS on: 03/03/2024 05:03 PM Modules accepted: Orders [facility]10-18-2024 Miscellaneous Notes* Addendum Note - Bogdan Roberts MD - 03/03/2024 5:03 PM EDTAddended by: BOGDAN ROBERTS on: 03/03/2024 05:03 PM Modules accepted: Orders documented in [facility] encounter[facility] History of Present illness Narrative* Carmen [...] PATIENT PRESENTS WITH AN IMPLANTABLE OR ATTACHED CANE PILER: No RADIOLOGY DEPARTMENT: General X-ray: Exam(s) Completed: Chest X-Ray PERIPHERAL IV DATA: Not applicable SIGNED BY: RT Mathieu(R) March 03, 2024 12:38 PM documented in this encounterU[facility]10-18-2024 Instructions* Patient Instructions* Wiley Benitez MD - 03/03/2024 11:11 AM EDT Discontinue the elavil (amitriptyline) for now - we will taper it down. Take 50mg for 4-5 days, then take 25mg for 4-5 days, then stop. documented in this encounterU[facility]10-[facility]-2024 History of Present illness Narrative* Wiley [...] have confirmed and edited as necessary, the [facility] obtained by others. Wiley Benitez MD Workforce Investment Act Career Manager offered: Patient accepts, visit chaperoned by Samreen [...] recommendation and said she would go to [place] [facility]. Follow up 6-8 weeks for phone visit; unable to access zoom for video visit Wiley Benitez MD documented in [facility] encounterU[facility]10-[facility]-2024 Instructions* Patient Instructions* Jacqueline Valdaez APRN.CNP - 03/01/2024 8:59 AM EDT Recommend [...] pressure check if needed. 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 Note was reviewed for accuracy. There may be minor misspellings or grammar miscues with [employer] voice recognition. documented in this encounterU[facility]09-[facility]-2024 Telephone encounter Note * Telephone Encounter - Mariam Woods LPN - 02/02/2024 6:50 PM EDT Patient notified of results, verbalizes understanding of instructions. Mariam Woods LPN [facility]09-18-2024 Miscellaneous Notes* Telephone Encounter - Mariam [...] appointment in June. Thank you. Jacqueline Valadez APRN.CNP documented in this encounterU[facility]09-18-2024 Telephone encounter Note * Telephone Encounter [...] in June. Thank you. Jacqueline Valadez APRN.SAMIR [facility]09-16-[facility]24 Telephone encounter Note* Telephone Encounter - German Grubbs APRN.CNP - 01/31/2024 3:27 PM EDT Chart reviewed. New rx sent. German Grubbs APRN.CNP [facility]09-16-2024 Miscellaneous Notes* Telephone Encounter - German Grubbs APRN.CNP - 01/31/2024 3:27 PM EDT Chart reviewed. New rx sent. German Grubbs APRN.CNP * Telephone Encounter - Noa Schmidt E - 01/31/2024 2:48 PM EDT [facility] 01/11/24: Impression: Eren Merchant is a 63 [...] Wiley Benitez MD Message routed to [employer]OTON[employer] ENGINEERING TECHNICIAN requesting new script for Amitriptyline. documented in this encounterUc [facility]09-16-2024 Telephone encounter Note * Telephone Encounter - Noa Schmidt E - 01/31/2024 2:48 PM EDT [facility] 01/11/24: [...] Wiley Benitez MD Message routed to [employer]ON[employer] ENGINEERING TECHNICIAN requesting new script for Amitriptyline. [facility]08-29-[facility] Instructions* Patient Instructions* Bogdan Roberts MD [...] or you can send a message through [employer]. You can also now schedule and select appointments through [employer]. Bogdan Roberts MD documented in this encounterUc [facility]08-29-2024 History of Present illness Narrative* Bogdan Roberts MD - 01/13/2024 2:07 PM EDT [facility] - NEW PATIENT EVALUATION Referring Provider: Jacqueline Valadez [address] [facility] [address] Primary Care Provider: Priyanka Smith MD [address] [facility] [id number] Dear Jacqueline Valadez: Thank you for referring [...] and during activities. 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 She has no history of an abnormal mammogram LMP: Patient's last menstrual period was 01/07/2011.; Menopause post : Menstrual history: NA; Deliveries: n/a I have confirmed and edited as necessary, the PFSH obtained by others. Wiley Benitez MD Workforce Investment Act Career Manager offered: Patient declines. OBJECTIVE: LMP 01/07/2011 General: [...] which included preparing to see the patient, [id number] patient care, completing clinical documentation, obtaining and/or reviewing separately obtained history, performing a medically appropriate examination, counseling and educating the pat ient/family/caregiver, and ordering medications, tests, or procedures. documented in this encounterUc [facility]08-13-2024 Instructions* Patient Instructions* Jacqueline Valadez APRN.CNP - [...] sooner pending repeat labs. documented in this encounterUc [facility] Hospital08-13-2024 History of Present illness Narrative* Jacqueline [...] history of kidney stones. Pap: Follows with GOVERNMENT EMPLOYEE, refers difficulty collecting pap recently. Mammogram: w/jenn, [...] Comment: Added automatically from request for surgery [id number] 09/05/2014: Rectal bleed No date: Thymoma Comment: [...] Tubal ligation 12/23/2017: LX PARTIAL COLECTOMY Comment: [facility] lap lysis of adhesions, left oopherectomy, right salpinoopherectomy, left salpingectomy, redo lap sigmoid colectomy w/ressection, lap mobilization of splenic flexure, lap appendectomy 10/2008: PAST SURGICAL HISTORY OF Comment: T9-L1 fusion, Dr. Lemon 10/24/2009: PAST SURGICAL HISTORY OF Comment: Removed T9-L1, 2 rods and 8 screws, Dr Lemon 11/2018: PAST SURGICAL HISTORY OF Comment: Hysteroscopy with D&C and Polypectomy with Burroughs and NephCellmemore Truclear device 07/11/2018: PICC LINE INSERT/CONSULT Comment: [...] tremor noted in hands bilaterally. Latest Ref Rn 12/16/2023 WBC 3.70 - 11.00 k/uL 11.52 [...] discussed and patient voices understanding. Jacqueline Valadez APRN.SOLAR PANEL TECHNICIAN This note was partially generated using Theater for the [employer] voice recognition system. Note was reviewed for accuracy. There may be minor misspellings or grammar miscues with [employer] voice recognition. documented in this encounterUc [facility] Hospital08-07-2024 History of Present illness Narrative* Mathew [...] Date Value 05/22/2022 Negative 03/22/2020 Negative Specific Vesper, Ur (no units) Date Value 05/22/2022 1.010 [...] Comment: Added automatically from request for surgery [id number] 09/05/2014: Rectal bleed No date: Thymoma Comment: [...] Yang Jr, MD 12/22/2023 documented in this encounterUc [facility]07-17-2024 Instructions* Patient Instructions* Lacy Ruiz - [...] answering service to speak with the doctor communications instructor. Dr. Cueto Dr. Benitez Dr. Constantino Dr. Cerda Dr. Brumfield Dr. Mcqueen Dr. Foy Dr. Mg Teri Roberts, SOLAR PANEL TECHNICIAN Tariq Cecilia, SOLAR PANEL TECHNICIAN German Miguel, SOLAR PANEL TECHNICIAN Radha Armando, SOLAR PANEL TECHNICIAN Lala Ruiz, SOLAR PANEL TECHNICIAN Lucina Estrada, SOLAR PANEL TECHNICIAN Please DO NOT use MyChart for procedure concerns. documented in this encounterUc [facility] Hospital07-17-2024 Nurse Note* Lacy Ruiz - 12/01/2023 2:54 PM EDT Instruction sheet given and reviewed: Yes Patient verbalizes understanding: Yes Post- procedure Vital Signs: B/P: 152/92 P: R:18 Pain Ratin on a scale of 0 to 10. Specimens: not indicated. Nurse: Lacy Ruiz [facility]07-17-2024 Nurse Note* Lacy Ruiz - 12/01/2023 2:54 PM EDT Instruction sheet given and reviewed: Yes Patient verbalizes understanding: Yes Post- procedure Vital Signs: B/P: 152/92 P: R:18 Pain Ratin on a scale of 0 to 10. Specimens: not indicated. Nurse: Lacy Ruiz documented in this encounterUc [facility] Hospital07-17-2024 History of Present illness Narrative* Wiley [...] Video-assisted cystourethroscopy was performed using a 19 Zimbabwean 30 degree cystoscope with saline infusion. The [...] OR. Wiley Benitez MD documented in this encounterUc [facility] Hospital07-15-2024 Note* Addendum Note - Claudia Floyd MA - 11/29/2023 11:01 AM EDTAddended by: CLAUDIA FLOYD on: 11/29/2023 11:01 AM Modules accepted: Orders [facility]07-15-2024 Miscellaneous Notes* Addendum Note - Claudia Floyd MA - 11/29/2023 11:01 AM EDTAddended by: CLAUDIA FLOYD on: 11/29/2023 11:01 AM Modules accepted: Orders documented in this encounterUc [facility]07-15-2024 History of Present illness Narrative* Lauryn Gonzalez [...] PATIENT PRESENTS WITH AN IMPLANTABLE OR ATTACHED CANE PILER: No RADIOLOGY DEPARTMENT: General X-ray: Exam(s) Completed: Abdomen X-Ray: Abdomen PERIPHERAL IV DATA: Not applicable SIGNED BY: RT Eloy(R) November 29, 2023 7:50 AM documented in this encounterUc [facility] Hospital07-15-2024 History of Present illness Narrative* Jessica CharisHAILE.CNM - 11/29/2023 7:59 AM EDT Eren is [...] Multiple0 Live Births0 Comment: 2 vaginal deliveries 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 Lemon PAST SURGICAL HISTORY OF 10/24/2009 Removed T9-L1, 2 rods and 8 screws, Dr Lemon PAST SURGICAL HISTORY OF 11/2018 Hysteroscopy with D&C and Polypectomy with [facility] and Effective Measure Truclear device PICC LINE INSERT/CONSULT 07/11/2018 THYMECTOMY [...] for overactive bladder/frequency/urgency and incontinence. Seen by URO/GOVERNMENT EMPLOYEE- currently receiving botox in bladder/ taking oral [...] needed Charis Lopez APRN.CNM documented in this encounterUc [facility] Hospital07-08-2024 Telephone encounter Note * Telephone Encounter - Dee Long - 11/22/2023 10:28 AM EDT Called and left vox Patient is [facility] Thank you Dee [facility]07-08-2024 Miscellaneous Notes* Telephone Encounter - Dee Long - 11/22/2023 10:28 AM EDT Called and left vox Patient is scheduled [facility] prior Thank you Dee * Telephone Encounter - Mathew Yang Jr., MD - 11/22/2023 8:45 AM EDT [facility] or 11/22/23 Fu with me 4 weeks Kub prior ordered documented in this encounterUc [facility] Hospital07-08-2024 Telephone encounter Note * Telephone Encounter - Mathew Yang Jr., MD - 11/22/2023 8:45 AM EDT [facility] or 11/22/23 Fu with me 4 weeks Kub prior ordered [facility]07-08-2024 NoteHNO ID: [id number] Author: SPENSER GARDUNO APRN.STATISTICAL TYPIST Service: ? Author Type: Nurse Machine Learning Intern Type: Anesthesia Procedure Notes Filed: 11/22/2023 08:18 Note Text: ANESTHESIOLOGY PROCEDURE NOTE PIV General Information Procedure Start Time/Medication Administration: 11/22/2023 7:55 AM Procedure End Time: 11/22/2023 7:55 AM Patient location: Pre surgery. Staffing STATISTICAL TYPIST: Spenser Garduno APRN.STATISTICAL TYPIST Performed by: CARLYN Preparation Sterility Preparation: hand hygiene performed prior to procedure, surgical cap used, skin prep agent completely dried prior to procedure Sterility Technique Not Completely Performed Due to Extreme Emergency: No Site Prep: Chloraprep Procedure Details Indication: need for IV access Needle Size/Type: 20 gauge angiocath Orientation: Right Location: Antecubital Imaging Guidance Used: No SIGNATURE: Spenser Garduno APRN.STATISTICAL TYPIST PATIENT NAME: Eren Merchant DATE: November 22, 2023 TIME: 8:17 AM CSN: [id number]07-08-2024 NoteHNO ID: [id number] Author: SPENSER GARDUNO APRN.STATISTICAL TYPIST Service: ? Author Type: Nurse Machine Learning Intern Type: Anesthesia Procedure Notes Filed: 11/22/2023 08:17 Note Text: ANESTHESIOLOGY PROCEDURE NOTE Airway General Information Procedure Start Time/Medication Administration: 11/22/2023 8:10 AM Procedure End Time: 11/22/2023 8:10 AM Patient location during procedure: OR Timeout Performed Pre-procedure: timeout performed Consent Obtained: Yes Patient identity confirmed: arm band and patient Staffing STATISTICAL TYPIST: Spenser Garduno APRN.STATISTICAL TYPIST Performed by: CARLYN Indications and Patient Condition Indications for airway management: anesthesia Preoxygenated: yes anesthesia circuit Patient position: sniffing Method: asleep Cricoid Pressure: No Manual In-Line Stabilization: No Difficult Mask: No Final Airway Details Final airway type: supraglottic airway Number of attempts at approach: 1 Final Supraglottic Airway: i-gel Size 4 Seal Adequate: yes SIGNATURE: Spenser Garduno APRN.CRNA PATIENT NAME: Eren Merchant DATE: November 22, 2023 TIME: 8:17 AM CSN: [id number]06-28-2024 Telephone encounter Note* Telephone Encounter - Lacy Ruiz - 11/12/2023 2:34 PM EDT Emely MARTINEZ from [facility] re: Approved Botox 200units Botox approved every 90 days during 11/04/23-11/02/24 Approval number [id number] Will route to care coordinators. See encounter 10/20/23 [facility]-28-2024 Miscellaneous Notes* Telephone Encounter - Lacy Ruiz - 11/12/2023 2:34 PM EDT Emely MARTINEZ from [facility] re: Approved Botox 200units Botox approved every 90 days during 11/04/23-11/02/24 Approval number [id number] Will route to care coordinators. See encounter 10/20/23 documented in this encounterUc [facility] Hospital06-26-2024 Telephone encounter Note * Telephone Encounter [...] 11/10/2023 Courtesy page sent (PRN): No APPEAL: [id number] FAX: [phone] PHONE: [phone] [facility]06-26-2024 Miscellaneous Notes* Telephone Encounter - Lori (Pharmacy LeidyCiaran barnett - 11/10/2023 9:30 AM EDT [...] 11/10/2023 Courtesy page sent (PRN): No APPEAL: [id number] FAX: [phone] PHONE: [phone] documented in this encounterUc [facility] Hospital06-25-2024 History of Present illness Narrative* Mathew [...] Date Value 05/22/2022 Negative 03/22/2020 Negative Specific Vesper, Ur (no units) Date Value 05/22/2022 1.010 [...] 08/05/2017 Added automatically from request for surgery [id number] Rectal bleed 09/05/2014 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, Masaoka [...] Yang Jr, MD 11/09/2023 documented in this encounterUc [facility] Hospital06-20-2024 History of Present illness Narrative* Anika Avila, RT(R) - 11/04/2023 8:00 AM EDT Radiology [...] PATIENT PRESENTS WITH AN IMPLANTABLE OR ATTACHED CANE PILER: No RADIOLOGY DEPARTMENT: General X-ray: Exam(s) Completed: Abdomen X-Ray: Abdomen PERIPHERAL IV DATA: Not applicable SIGNED BY: RT Myrna(R) November 04, 2023 8:03 AM documented in this encounterUc [facility] Hospital06-18-2024 Telephone encounter Note * Telephone Encounter - Seema Calle RN - 11/02/2023 10:53 AM EDT Cancelled appt for 11/02. Will wait to get 200 units approved. See TE on 10/19. Seema Calle RN November 02, 2023 10:53 AM [facility]-18-2024 Miscellaneous Notes* Telephone Encounter - Seema [...] Requested Clinicals/Information Sent: N/A documented in this encounterUc West [facility] Hospital06-18-2024 Telephone encounter Note * Telephone Encounter - Lori (Pharmacy Leidy)Ciaran - 11/02/2023 10:00 AM EDT === PHARMACY TEAM ==== ADDITIONAL INFORMATION NEEDED/REQUESTED Case Submitted: No Request Type: Provider Date of Service: 11/03/2023 Additional Information Needed: PER POLICY MAX DOSE 100 UNITS (HOW WOULD YOU LIKE TO PROCEED) Request from Payor by: N/A Email Sent to: ENCOUNTER-WILEY BENITEZ Requested Clinicals/Information Sent: N/A [facility] History of Present illness Narrative* Cara Connors RT(R) - 11/02/2023 8:20 AM EDT Radiology [...] PATIENT PRESENTS WITH AN IMPLANTABLE OR ATTACHED CANE PILER: No RADIOLOGY DEPARTMENT: CT; Exam(s) Completed: Chest PERIPHERAL IV DATA: Not applicable SIGNED BY: RT Jonathon(R) November 02, 2023 1:12 PM documented in this encounterUc [facility] Hospital06-05-2024 Telephone encounter Note * Telephone Encounter - Seema Calle, RN - 10/20/2023 9:37 AM EDT Botox referral received for 100 units -- 1st injection. Auth did not populate. Entered auth. Will monitor status. PPX antibiotics: Macrobid sent 10/19 to [facility] in [place] Blood thinners: asa 81 mg LV: 10/06 with Barley Plan: 1. Overactive bladder - Continue to adjust interstim based off medtronic manufacturers service representative's recommendations - Discussed r/b/a of trospium, including possible side effects of dry eye, dry mouth, constipation,cognitive side effects when used terminal carman. CrCl calculated to be 65 mL/min. Rx [...] reschedule for a later date. Pt will flower buncher or picker Macrobid, and confirmed he is just on asa 81mg. Seema Calle RN October 20, 2023 9:50 AM [facility] Miscellaneous Notes* Telephone Encounter - Seema Calle RN - 10/20/2023 9:37 AM EDT Botox referral received for 100 units -- 1st injection. Auth did not populate. Entered auth. Will monitor status. PPX antibiotics: Macrobid sent 10/19 to [facility] in [place] Blood thinners: asa 81 mg LV: 10/06 with Barley Plan: 1. Overactive bladder - Continue to adjust interstim based off medtronic manufacturers service representative's recommendations - Discussed r/b/a of trospium, including possible side effects of dry eye, dry mouth, constipation,cognitive side effects when used terminal carman. CrCl calculated to be 65 mL/min. Rx [...] reschedule for a later date. Pt will flower buncher or picker Macrobid, and confirmed he is just on asa 81mg. Seema Calle RN October 20, 2023 9:50 AM documented in this encounterUc [facility] Hospital05-30-2024 Telephone encounter Note * Telephone Encounter - Susana Bhardwaj MA - 10/14/2023 9:57 AM EDT Pt willing to see Neuro at another location. Advised her to call in and schedule. Susana Bhardwaj MA [facility]-30-2024 Miscellaneous Notes* Telephone Encounter - Susana Bhardwaj MA - 10/14/2023 9:57 AM EDT Pt willing to see Neuro at another location. Advised her to call in and schedule. Susana Bhardwaj MA * Telephone Encounter - Susana Bhardwaj MA - 10/14/2023 8:57 AM EDT Awaiting pt reply to additional questions. Susana Bhardwaj MA documented in this encounterUc [facility] Hospital05-30-2024 Telephone encounter Note * Telephone Encounter - Susana Bhardwaj MA - 10/14/2023 8:57 AM EDT Awaiting pt reply to additional questions. Susana Bhardwaj MA [facility]-30-20[facility] Instructions* Patient Instructions* Jacqueline Valadez APRN.CNP - 10/14/2023 7:13 AM EDT Start Propanolol 10 mg, take 1 tablet daily for 1 week then increase to twice daily Recommend consult with Neurology, Dr. Montero Follow up in 1 month if needed. 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 Lemon PAST SURGICAL HISTORY OF 10/24/2009 Removed T9-L1, 2 rods and 8 screws, Dr Lemon PAST SURGICAL HISTORY OF 11/2018 Hysteroscopy with D&C and Polypectomy with Burroughs and NephCellmemore Truclear device PICC LINE INSERT/CONSULT 07/11/2018 THYMECTOMY [...] discussed and patient voices understanding. Jacqueline Valadez APRN.SOLAR PANEL TECHNICIAN This note was partially generated using [employer] voice recognition system. Note was reviewed for accuracy. There may be minor misspellings or grammar miscues with [employer] voice recognition. documented in this encounterUc West [facility] Hospital05-23-2024 Instructions* Patient Instructions* Tariq Brooks APRN.CNP - 10/07/2023 9:12 AM EDT Pelvic Floor Physical Therapy Call [phone] for an appointment for pelvic floor physical therapy. [email or web address] [facility] -- [facility] -- [place] -- [facility], [facility] -- [facility] -- [facility] Administrative [place], [facility] [address] [place] -- [facility] -- [facility] -- [facility] -- [facility] -- [facility] -- [facility] -- [facility], [facility] -- Pending [facility] To [facility] -- [facility] [facility] [place] -- [facility] [place] -- [facility], [facility] -- [facility] --[facility] [place] -- [facility] [place] -- [facility] [place] -- [facility] documented in this encounterUc [facility]05-23-2024 History of Present illness Narrative* Tariq Brooks APRN.SAMIR - 10/07/2023 8:30 AM EDT Female Pelvic Medicine & Reconstructive Surgery Follow-Up Eren Merchant is a 63 year old female, who presents for a follow-up of vulvar burning, urinary frequency. History since last visit: Has been applying vaginal estrogen cream with applicator 3x/week, states vulvar burning has significantly improved. Still has occasional burning. Spoke with [employer] was put on program 6 at 1.4 [...] the PFSH obtained by others. Tariq Brooks APRN.SOLAR PANEL TECHNICIAN Workforce Investment Act Career Manager offered: Patient declines. OBJECTIVE: LMP 01/07/2011 General: [...] Continue to adjust interstim based off medtronic manufacturers service representative's recommendations - Discussed r/b/a of trospium, including possible side effects of dry eye, dry mouth, constipation,cognitive side effects when used detention. CrCl calculated to be 65 mL/min. Rx sent. If no improvement in 4 weeks, patient to send Valchemy message for alternative medication option. Is considering [...] Making Level: 4 - Moderate Tariq Brooks APRN.SOLAR PANEL TECHNICIAN documented in this encounterUc [facility]05-02-2024 History of Present illness Narrative* Karen Alcantara MD - 09/16/2023 1:15 PM EDT Images from the original note were not included. . Respiratory [place] Note Patient name: Eren Merchant PCP: Priyanka [...] CellCept. Required increase in her CellCept dose [id number] mg a day after surveillance CT showed [...] leiomyoma of uterus Malnutrition of moderate degree ([facility]) 06/15/2018 Obesity, Class I, BMI 30-34.9 E66.9 09/03/2017 Osteopenia Overactive bladder Primary osteoarthritis of first carpometacarpal joint of right hand 08/05/2017 Added automatically from request for surgery [id number] Rectal bleed 09/05/2014 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, Masaoka [...] UNI/BI Tubal ligation LX PARTIAL COLECTOMY 12/23/2017 [facility] lap lysis of adhesions, left oopherectomy, right salpinoopherectomy, left salpingectomy, redo lap sigmoid colectomy w/ressection, lap mobilization of splenic flexure, lap appendectomy PAST SURGICAL HISTORY OF 10/2008 T9-L1 fusion, Dr. Lemon PAST SURGICAL HISTORY OF 10/24/2009 Removed T9-L1, 2 rods and 8 screws, Dr Lemon PAST SURGICAL HISTORY OF 11/2018 Hysteroscopy with D&C and Polypectomy with Burroughs and NephCellmemore Truclear device PICC LINE INSERT/CONSULT 07/11/2018 THYMECTOMY [...] and liver panel Karen Alcantara MD Res[facility] [place] documented in this encounterUc [facility] Hospital04-25-2024 History of Present illness Narrative* Tariq Brooks APRN.SOLAR PANEL TECHNICIAN - 09/09/2023 9:00 AM EDT UROGYN TELEPHONE VISIT PROGRESS NOTE This is a telephone encounter initiated for an established patient, parent or guardian not originating from a related Evaluation & Management service provided within the previous 7 days nor leading to an Evaluation & Management service or procedure within the next 24 hours or soonest available appointment. Patient identified by and name. Eren Herbertiver has consented to this telephone encounter. Persons [...] if she does not have improvement with [employer] phone call. Data Reviewed: Most recent labs [...] with medtronic rep, will evaluate next steps. Valchemy message sent to aid in communication Total Time Spent: 5-10 minutes Tariq Brooks APRN.CNP documented in this encounterUc [facility] Hospital04-18-2024 History of Present illness Narrative* Tariq [...] the PFSH obtained by others. Tariq Brooks APRN.SOLAR PANEL TECHNICIAN Workforce Investment Act Career Manager offered: Patient declines. OBJECTIVE: BP 102/72 LMP [...] Making Level: 4 - Moderate Tariq Brooks APRN.SOLAR PANEL TECHNICIAN documented in this encounterUc [facility] Hospital04-17-2024 Miscellaneous Notes* Telephone Encounter - Hilary Sandoval RN - 09/01/2023 9:28 AM EDT Refill request received via [employer]. Last seen 11/26/21. Is scheduled for upcoming annual exam on 11/29/23. Hilary Sandoval RN documented in this encounterUc West [facility] Hospital04-04-2024 Miscellaneous Notes* Letter - Coordinator, Mammography - 08/19/2023 5:59 PM EDT August 20, 2023 PID: [id number] Eren Merchant [address] [place] [address] Dear Ms. Merchant, We are pleased to [...] report will be [facility] as part of your permanent medical record and are available for your continuing care. Thank you for allowing us to help in meeting your health care needs. Sincerely, Dr. Ruiz Interpreting Radiologist [facility] (Normal over 40) documented in this encounterUc West Chester Hospital04-03-2024 History of Present illness Narrative* Chiquita Cook Mammo Yessy - 08/18/2023 9:10 AM EDT Radiology Service [...] PATIENT PRESENTS WITH AN IMPLANTABLE OR ATTACHED CANE PILER: No RADIOLOGY DEPARTMENT: Mammography PERIPHERAL IV DATA: Not applicable SIGNED BY: Marissa Rivera August 18, 2023 9:15 AM documented in this encounterUc West [facility] Hospital03-25-2024 Miscellaneous Notes* Telephone Encounter - Priyanka Smith MD - 08/09/2023 12:14 PM EDT Order filed Priyanka Smith MD * Telephone Encounter - Tess Persaud MA - 08/06/2023 4:35 PM EDT Pended orders. Previous order was ordered by GOVERNMENT EMPLOYEEKaleb Persaud Ma, * Telephone Encounter - Jacqueline Bishop - 08/06/2023 4:00 PM EDT Patient scheduled mammogram screening with available order. Patient previously had mammogram screening with JENN. Please resubmit the appropriate order if necessary. documented in this encounterUc [facility] Hospital03-25-2024 Miscellaneous Notes* Telephone Encounter - Karla [...] advise. Karla Stroud MA documented in this encounterUc West Chester Hospital02-06-2024 History of Present illness Narrative* Priyanka [...] Alcantara - Pulmonary Dr. Mg/Tariq Brooks - GOVERNMENT EMPLOYEE Dr. Yang - Urology Medical/Family history review [...] 08/05/2017 Added automatically from request for surgery [id number] Rectal bleed 09/05/2014 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, Masaoka [...] UNI/BI Tubal ligation LX PARTIAL COLECTOMY 12/23/2017 [facility] lap lysis of adhesions, left oopherectomy, right salpinoopherectomy, left salpingectomy, redo lap sigmoid colectomy w/ressection, lap mobilization of splenic flexure, lap appendectomy PAST SURGICAL HISTORY OF 10/2008 T9-L1 fusion, Dr. Lemon PAST SURGICAL HISTORY OF 10/24/2009 Removed T9-L1, 2 rods and 8 screws, Dr Lemon PAST SURGICAL HISTORY OF 11/2018 Hysteroscopy with D&C and Polypectomy with Burroughs and NephCellmemore Truclear device PICC LINE INSERT/CONSULT 07/11/2018 THYMECTOMY [...] - 1-dose 60+ series) Never done Covid-19 Vaccine( season) due on 04/21/2023 Advance Directive Discussion [...] Past Histories independently gathered by the clinical unit support representative and the remaining scribed note accurately describes [...] AM. Tess Persaud Ma documented in this encounterUc West Chester Hospital10-16-2023 History of Present illness Narrative* Clementina Zaldivar LPN - 03/01/2023 10:01 AM EDT Patient presents for TDAP vaccine. Denies any problems at this time. Tolerated injection well. Clementina Zaldivar LPN documented in this encounterUc [facility] Hospital10-12-2023 History of Present illness Narrative* Tariq Brooks APRN.SOLAR PANEL TECHNICIAN - 02/25/2023 10:30 AM EDT Female Pelvic Medicine & Reconstructive Surgery Post-Op Visit Eren Merchant is a 62 year old female who presents for a 4 Week post-op check s/p combined stage I and II sacral neuromodulation. Patient states Perlam worked great for 1 week. Then she [...] you received about pain medications helpful? Yes Workforce Investment Act Career Manager offered:Patient declines OBJECTIVE: [facility] 01/07/2011 General: Well appearing, alert, in [...] wait for culture for antibiotics Tariq Brooks APRN.SOLAR PANEL TECHNICIAN documented in this encounterUc West [facility] Hospital09-25-2023 Miscellaneous Notes* Telephone Encounter - Cara Juares LPN - 02/08/2023 4:05 PM EDT Patient phones requesting refills as follows: Requested Prescriptions Pending Prescriptions Disp Refills predniSONE (DELTASONE) 5 mg tablet Sig: Take 1 tablet by mouth once daily. Please review and advise. Cara Juares LPN documented in this encounterUc West [facility] Hospital09-01-2023 History of Present illness Narrative* John [...] OR. John Mg MD documented in this encounterUc West [facility] Hospital08-29-2023 Instructions* Patient Instructions* Abdulkadir Amaya PA-C - 01/12/2023 10:58 AM EDT PATIENT PREOPERATIVE INSTRUCTIONS [facility]: [phone] -- [address] [facility] [address]. Please read below carefully for your personalized [...] Procedures: - YOU MUST HAVE A RESPONSIBLE HOTEL STAFF MEMBER TAKE YOU HOME. A ADULT DAYCARE COORDINATOR OR ORTHOPEDIC SHOE MAKER CANNOT BE MADE A RESPONSIBLE HOTEL STAFF MEMBER. - We recommend that a responsible person [...] Advance Directive, please fax a copy to [phone] or email to for it to be [...] your chart that day. documented in this encounterUc West [facility] Hospital08-29-2023 History and physical note * Abdulkadir [...] to managesymptoms. Procedure scheduled on 01/28/2023 at [facility]. REVIEW OF SYSTEMS: General: No weight loss, malaise or fevers. Neurological: No history of TIA's, stroke, EDUCATIONAL DIRECTOR tumor, impaired sensorium, hemiplegia, paraplegia orquadraplegia. No [...] arrhythmia, atrial fibrillation, CHF, hyperlipidemia, hypertension, recent NM and murmur/valvular heart disease. GI: +Esophageal dysmotility [...] 08/05/2017 Added automatically from request for surgery [id number] Rectal bleed 09/05/2014 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, Masaoka [...] UNI/BI Tubal ligation LX PARTIAL COLECTOMY 12/23/2017 [facility] lap lysis of adhesions, left oopherectomy, right salpinoopherectomy, left salpingectomy, redo lap sigmoid colectomy w/ressection, lap mobilization of splenic flexure, lap appendectomy PAST SURGICAL HISTORY OF 10/2008 T9-L1 fusion, Dr. Lemon PAST SURGICAL HISTORY OF 10/24/2009 Removed T9-L1, 2 rods and 8 screws, Dr Lemon PAST SURGICAL HISTORY OF 11/2018 Hysteroscopy with D&C and Polypectomy with Burroughs and Effective Measure Truclear device PICC LINE INSERT/CONSULT 07/11/2018 THYMECTOMY [...] pm Taking Yes Medication Comments documented by Tses Persaud Ma on 12/22/2022 at 0900. OTC [...] 10:38 AM PAGER/CONTACT #: documented in this encounterUc West Chester Hospital08-08-2023 History of Present illness Narrative* Priyanka Smith MD - 12/22/2022 9:20 AM EDT Chief Complaint Patient presents with: F/U 6 Month HPI Eren Merchant is a 62 year old female who presents here today for a 6 month follow up. Pt here today for a 6 month follow up. 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 GI/Uro - Denies any stomach or bowel issues. Follows with Urology, Dr. Yang and Uro/GOVERNMENT EMPLOYEE, Dr. Mg. Hx of acute cystitis, gross [...] 08/05/2017 Added automatically from request for surgery [id number] Rectal bleed 09/05/2014 Thymoma Resected 07/14/17, Masaoka [...] UNI/BI Tubal ligation LX PARTIAL COLECTOMY 12/23/2017 [facility] lap lysis of adhesions, left oopherectomy, right [...] 11/16/2022 2.67 FEV1/FVC PRE (%) 11/16/2022 86 FQB37-67% PRE (L/S) 11/16/2022 3.85 PEF PRE (L/S) [...] 11/02/2022 2.47 Monocytes % 11/02/2022 10.6 Abs [place] 11/02/2022 1.08 (H) Eosinophils % 11/02/2022 0.2 [...] 596.51, ICD10: N32.81 - Cont f/u with GOVERNMENT EMPLOYEE 7. Low sodium levels - ICD9: 276.1, ICD10: E87.1 - Stable monitor labs 8. 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 I agree with the Chief Complaint, ROS, and Past Histories independently gathered by the clinical unit support representative and the remaining scribed note accurately describes [...] AM. Tess Persaud Ma documented in this encounterUc West [facility] Hospital07-13-2023 Miscellaneous Notes* Telephone Encounter - Susana Bhardwaj Ma - 11/26/2022 2:54 PM EDT Pt notified of results via [employer]. Susana Bhardwaj Ma * Telephone Encounter - [...] for 14 days. Authorizing Provider: JACQUELINE VALADEZ APRN.CNP * Telephone Encounter - Mariam Woods [...] advise. Mariam Woods LPN documented in this encounterUc West Chester Hospital07-03-2023 History of Present illness Narrative* DM Zuñiga - 11/16/2022 10:02 AM EDT PULM FUNCTION SMARTBLOCK: Provider: Karen Alcantara MD Assisting Tech: DM Zuñiga Spirometry: 1 DLCO: 1 LV - Box: 1 documented in this encounterUc West Chester Hospital06-23-2023 History of Present illness Narrative* John Mg MD - 11/06/2022 2:56 PM EDT Order placed for Intersim generator and lead placement in the [facility] OR on January 28. documented in this encounterUc West Chester Hospital06-20-2023 History of Present illness Narrative* Mathew [...] Date Value 05/22/2022 Negative 03/22/2020 Negative Specific Vesper, Ur (no units) Date Value 05/22/2022 1.010 [...] leiomyoma of uterus Malnutrition of moderate degree ([facility]) 06/15/2018 Obesity, Class I, BMI 30-34.9 E66.9 09/03/2017 Osteopenia Overactive bladder Primary osteoarthritis of first carpometacarpal joint of right hand 08/05/2017 Added automatically from request for surgery [id number] Rectal bleed 09/05/2014 Thymoma Resected 07/14/17, Masaoka [...] Yang Jr, MD 11/03/2022 documented in this encounterUc [facility] Hospital06-13-2023 History of Present illness Narrative* Cara [...] 27, 2022 4:15 PM documented in this encounterUc West Chester Hospital06-01-2023 Miscellaneous Notes* Telephone Encounter - Gerri MARIN - 10/15/2022 4:01 PM EDT Images from the original note were not included. Lm to call back and schedule. Gerri Yang Jr., MD [facility] Clerical Pool Needs appt to discuss test results documented in this encounterUc West Chester Hospital06-01-2023 NoteHNO ID: [id number] Author: CELIA Vee Service: Radiology Author Type: [...] 8:30 PATIENT DISCHARGED TO: Ambulatory patient, left [place] department area. A Diagnostic radioactive procedure has taken place, with no further precautions necessary other than routine body substance precautions. More information regarding radiation safety can be found using this link: [email or web address] SIGNATURE: Michele Arellano VIBRATORY PILE DRIVER PATIENT NAME: Eren Merchant DATE: October 15, 2022 TIME: 11:07 AM [facility]AG[facility]CONTACT [id number] History of Present illness Narrative* Michele Arellano CELIA - 10/15/2022 8:00 AM EDT RADIOLOGY SERVICE [...] radiation safety can be found usingthis link: [email or web address] SIGNATURE: CELIA Vee PATIENT NAME: Eren Merchant DATE: October 15, 2022 TIME: 11:07 AM PAGER/CONTACT #: documented in this encounterUc West [facility] Hospital05-30-2023 History of Present illness Narrative* Lala [...] Total Time Spent: 15 minutes Lala Ruiz APRN.CNP documented in this encounterUc West Chester Hospital05-03-2023 Nurse Note* Lacy Ruiz RN - [...] has follow up virtual appointment scheduled with PHOTONICS ENGINEERING TECHNICIAN following botox injections. documented in this encounterUc West Chester Hospital2023 History of Present illness Narrative* Priyanka [...] 08/05/2017 Added automatically from request for surgery [id number] Rectal bleed 09/05/14 Thymoma Resected 07/14/17, Masaoka [...] UNI/BI Tubal ligation LX PARTIAL COLECTOMY 12/23/2017 [facility] lap lysis of adhesions, left oopherectomy, right [...] Past Histories independently gathered by the clinical unit support representative and the remaining scribed note accurately describes my personal service to the patient. Medical Decision Making: Problems: Low: Acute, uncomplicated illness or injury Risk: Moderate: Drug management Medical Decision Making Level: 3 - Low Priyanka Smith MD The documentation for this note was completed by Susana Bhadrwaj Ma acting as scribe for Priyanka Smith MD. August 20, 2022 2:13 PM. Susana Bhardwaj Ma documented in this encounterUc West Chester Hospital03-30-2023 Miscellaneous Notes* Telephone Encounter - Alysha [...] improving. Guillermo Mccormick APRN.SAMIR documented in this encounterUc West Chester Hospital03-29-2023 History of Present illness Narrative* Guillermo Mccormick APRN.SAMIR - 08/12/2022 6:31 PM EDT Subjective HPI [...] 08/05/2017 Added automatically from request for surgery [id number] Rectal bleed 09/05/14 Thymoma Resected 07/14/17, Masaoka [...] UNI/BI Tubal ligation LX PARTIAL COLECTOMY 12/23/2017 [facility] lap lysis of adhesions, left oopherectomy, right salpinoopherectomy, left salpingectomy, redo lap sigmoid colectomy w/ressection, lap mobilization of splenic flexure, lap appendectomy PAST SURGICAL HISTORY OF 10/2008 T9-L1 fusion, Dr. Lemon PAST SURGICAL HISTORY OF 10/24/2009 Removed T9-L1, 2 rods and 8 screws, Dr Lemon PAST SURGICAL HISTORY OF 11/2018 Hysteroscopy with D&C and Polypectomy with Burroughs and NephCellmemore Truclear device PICC LINE INSERT/CONSULT 07/11/2018 THYMECTOMY [...] of care. This note was generated using [employer] software. It may contain errors in wording, punctuation, or spelling. Guillermo Mccormick APRN.SAMIR documented in this encounterUc West Chester Hospital03-28-2023 NoteHNO ID: [id number] Author: MARK Earl Service: Radiology Author Type: [...] BY: MARK Earl August 11, 2022 3:33 PMDayton Va Medical [id number] History of Present illness Narrative* Kimmy Zamora [...] 11, 2022 3:33 PM documented in this encounterUc West Chester Hospital03-28-2023 History of Present illness Narrative* Mathew [...] Date Value 05/22/2022 Negative 03/22/2020 Negative Specific Vesper, Ur (no units) Date Value 05/22/2022 1.010 [...] 08/05/2017 Added automatically from request for surgery [id number] Rectal bleed 09/05/14 Thymoma Resected 07/14/17, Masaoka [...] Yang Jr, MD 08/11/2022 documented in this encounterUc West Chester Hospital03-10-2023 Miscellaneous Notes* Letter - Mammography Coordinator - 07/24/2022 10:31 AM EST July 27, 2022 PID: [id number] Eren Merchant [address] [place] [address] Dear Ms. Merchant, We are pleased to [...] report will be [facility] as part of your permanent medical record and are available for your continuing care. Thank you for allowing us to help in meeting your health care needs. Sincerely, Dr. Sherman Interpreting Radiologist [facility] (Normal over 40) documented in this encounterUc West [facility] Hospital03-09-2023 History of Present illness Narrative* Danni Yeung [...] 23, 2022 12:44 PM documented in this encounterUc West Chester Hospital02-15-2023 Instructions* Patient Instructions* KAUSHAL Lockhart - [...] Dark urine. Chest pain. documented in this encounterUc West Chester Hospital02-15-2023 History of Present illness Narrative* KAUSHAL Lockhart - 07/01/2022 6:10 PM EST This note was created using Leaf. Subjective Eren Merchant is a 62 year [...] leiomyoma of uterus Malnutrition of moderate degree ([facility]) 06/15/2018 Obesity, Class I, BMI 30-34.9 E66.9 09/03/2017 Primary osteoarthritis of first carpometacarpal joint of right hand 08/05/2017 Added automatically from request for surgery [id number] Rectal bleed 09/05/14 Thymoma Resected 07/14/17, Masaoka [...] UNI/BI Tubal ligation LX PARTIAL COLECTOMY 12/23/2017 [facility] lap lysis of adhesions, left oopherectomy, right salpinoopherectomy, left salpingectomy, redo lap sigmoid colectomy w/ressection, lap mobilization of splenic flexure, lap appendectomy PAST SURGICAL HISTORY OF 10/2008 T9-L1 fusion, Dr. Lemon PAST SURGICAL HISTORY OF 10/24/2009 Removed T9-L1, 2 rods and 8 screws, Dr Lemon PAST SURGICAL HISTORY OF 11/2018 Hysteroscopy with D&C and Polypectomy with Burroughs and NephCellmemore Truclear device PICC LINE INSERT/CONSULT 07/11/2018 THYMECTOMY [...] ER evaluation. KAUSHAL Lockhart documented in this encounterUc West Chester Hospital02-06-2023 Instructions* Patient Instructions* Susana Bhardwaj Ma - 06/22/2022 3:02 PM EST Follow up in 6 months as scheduled. documented in this encounterUc West Chester Hospital02-06-2023 History of Present illness Narrative* Priyanka Smith MD - 06/22/2022 2:40 PM EST Chief Complaint Patient presents with: 6 Month Exam HPI Eren Merchant is a 62 year old female who presents here today for a 6 month follow up. Pt here today for her routine 6 month follow up. No bowel, Gi, or urinary issues. Follows with Dr. Mg Uro GOVERNMENT EMPLOYEE. Hx of acute cystitis, gross hematuria and OAB. Pt using Estrace vaginal cream. Previously took Mybetriq. She does have some burning with urination which she is working with GOVERNMENT EMPLOYEE/Uro with. She had a CT scan done that did show some nonobstructing kidney stones. She states that she does occ have blood in the urine or when she wipes. Pt advised to follow up with Uro GOVERNMENT EMPLOYEE as scheduled and if any other questions/concerns to contact their office. GERD: Stable. No longer on Omeprazole. Has followed with GI in the past for issues of brad esophagitis, odynophagia and esophageal dysmotility. Has used Nystatin rinse in the past. Her Gastro doctor Dr. Franklin has moved to [place] and she doesn't want to drive that [...] leiomyoma of uterus Malnutrition of moderate degree ([facility]) 06/15/2018 Obesity, Class I, BMI 30-34.9 E66.9 09/03/2017 Primary osteoarthritis of first carpometacarpal joint of right hand 08/05/2017 Added automatically from request for surgery [id number] Rectal bleed 09/05/14 Thymoma Resected 07/14/17, Masaoka [...] UNI/BI Tubal ligation LX PARTIAL COLECTOMY 12/23/2017 [facility] lap lysis of adhesions, left oopherectomy, right [...] Lymph% 05/23/2022 19.5 Abs Lymph 05/23/2022 2.27 [place]% 05/23/2022 7.5 Abs [place] 05/23/2022 0.88 (A) Eosin% 05/23/2022 0.1 Abs [...] 50,000-<100,000 CFU/ml Proteus mirabilis (A) Color 05/22/2022 [place] (A) Clarity 05/22/2022 Clear Glucose, Urine 05/22/2022 Negative Bilirubin, Urine 05/22/2022 Negative Ketones, Urine 05/22/2022 Negative Specific Vesper, Ur 05/22/2022 1.010 Hemoglobin/Blood,Ur 05/22/2022 3+ (A) [...] 05/22/2022 Small (A) COLOR UA (POCT) 05/22/2022 [place] CLARITY UA (POCT) 05/22/2022 Clear Appointment on [...] Results Only on 04/22/2022 Component Date Value Physician Pediatrician 04/22/2022 Value:Provider KAMAR your patient EREN MERCHANT has not started [...] Past Histories independently gathered by the clinical unit support representative and the remaining scribed note accurately describes [...] PM. Susana Bhardwaj Ma documented in this encounterUc West [facility] Hospital02-01-2023 History of Present illness Narrative* John Mg MD - 06/17/2022 9:08 PM EST Order for consult to urology documented in this encounterUc West Chester Hospital01-27-2023 Miscellaneous Notes* Telephone Encounter - Juwan [...] advise. Mariam Woods LPN documented in this encounterUc West Chester Hospital01-24-2023 History of Present illness Narrative* Cara [...] 2022 TIME: 10:34 AM documented in this encounterUc West Chester Hospital01-13-2023 Miscellaneous Notes* Telephone Encounter - Tonya Coleman - 05/29/2022 10:41 AM EST Patient has been scheduled on 09/14/2022 for cysto with botox and for 06/09/[address] [place] [address]rogram. Thank you. Tonya Coleman * Telephone Encounter - Noa Schmidt RN - 05/29/2022 10:26 AM EST Phone call placed to patient to schedule cystoscopy with possible Botox injection. First available at [place] is 09/14 at 8:30, patient accepts. She declined sooner appt at another location. PSS- please schedule the cystoscopy and assist with scheduling CT Urogram (also ordered). Referral placed. She states her hematuria has resolved since taking antibiotic for UTI and she is starting to feel better. documented [facility] Miscellaneous Notes* Telephone Encounter - German Grubbs APRN.CNP - 05/26/2022 9:35 AM EST Left message for patient regarding urine culture results indicating a UTI. Bactrim sent to pharmacy. German Grubbs APRN.CNP documented in this encounterU[facility]01-06-2023 Instructions* Patient Instructions* Lacy Ruiz RN [...] PHYSICIAN CONTACT INFORMATION Dr. Chavarria Dr. Zaragoza ([facility]) Dr. Constantino Dr. Cerda Dr. Brumfield Dr. Mcqueen Dr. Vargas Dr. Mg Teri Roberts, SAMIR Cat CNP Natalie Weigand, CNP After 4:30 pm or on holidays or weekends, call: or [phone]. Ask the drawbridge operator to page the GOVERNMENT EMPLOYEE communications instructor.' [facility] Patients ONLY: After 4:30 PM or on holidays or weekends, call and you will be connected to the answering service/physician communications instructor. Please DO NOT use MyChart for procedure concerns. documented in this encounterUc [facility]01-06-2023 History of Present illness Narrative* Lacy Ruiz RN - 05/22/2022 2:30 PM EST URODYNAMICS Procedure cancelled by Dr. Mg. Pt with gross hematuria. documented in this encounterUc [facility]12-06-2022 Miscellaneous Notes* Telephone Encounter - Eugenia [...] day. Eugenia Amaro RN documented in this encounterUc [facility]12-02-2022 History of Present illness Narrative* Karen Alcantara MD - 04/17/2022 2:45 PM EST . 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 Mariam Woods LPN * Telephone Encounter - Cleo Stevens APRN.SAMIR - 04/03/2022 1:47 PM EST Please inform patient that urine culture was negative. Can discontinue antibiotic. Follow up with primary care provider as patient had blood in urine. documented in this encounterUc [facility] Hospital11-17-2022 History of Present illness Narrative* Genie [...] 08/05/2017 Added automatically from request for surgery [id number] Rectal bleed 09/05/14 Thymoma Resected 07/14/17, Masaoka [...] UNI/BI Tubal ligation LX PARTIAL COLECTOMY 12/23/2017 [facility] lap lysis of adhesions, left oopherectomy, right salpinoopherectomy, left salpingectomy, redo lap sigmoid colectomy w/ressection, lap mobilization of splenic flexure, lap appendectomy PAST SURGICAL HISTORY OF 10/2008 T9-L1 fusion, Dr. Lemon PAST SURGICAL HISTORY OF 10/24/2009 Removed T9-L1, 2 rods and 8 screws, Dr Lemon PAST SURGICAL HISTORY OF 11/2018 Hysteroscopy with D&C and Polypectomy with Burroughs and NephCellmemore Truclear device PICC LINE INSERT/CONSULT 07/11/2018 THYMECTOMY [...] sure everything is healing okay. Genie Olson APRN.SOLAR PANEL TECHNICIAN documented in this encounterUc [facility] Hospital11-16-2022 Miscellaneous Notes* Telephone Encounter - Kiki Patel RN - 04/01/2022 10:07 AM EST Last annual with CP 11/26/21. Requested Prescriptions Pending Prescriptions Disp Refills estradiol (ESTRACE) 0.01 % (0.1 mg/gram) vaginal cream 42.5 g 1 Sig: Use 1 g vaginally two times a week. RX INSTRUCTIONS: Mychart request. Kiki Patel RN documented in this encounterUc [facility] Hospital11-14-2022 Miscellaneous Notes* Telephone Encounter - Tonya [...] accepted appointment on 05/22/22 at 2:30 at [place]. PSS- please schedule documented in this encounterUc [facility]11-07-2022 Miscellaneous Notes* Telephone Encounter - Tariq [...] Provider: TARIQ BROOKS APRN.CNP documented in this encounterUc [facility]11-02-2022 Miscellaneous Notes* Telephone Encounter - Eugenia Amaro RN - 03/18/2022 11:40 AM EDT Pt is scheduled and placed on wait list Eugenia Amaro RN * Telephone Encounter - Tia Valdovinos - 03/06/2022 2:15 PM EDT Patient wants to make follow up but there is nothing available thru the end of the year. documented in this encounterUc [facility] Hospital10-31-2022 Instructions* Patient Instructions* John Mg MD [...] UROGYNECOLOGY PHYSICIAN CONTACT INFORMATION Dr. John Mg ([facility]) Dr. John Mg ([facility]) Dr. Viji Zaragoza ([facility]) Dr. Ana Cerda Dr. Chelita Ramirez Dr. Shannen Mcqueen Dr. Yelena Vargas [phone] Dr. John Mg Teri Roberts, SOLAR PANEL TECHNICIAN Lala Ruiz, SAMIR Estrada CNP After 4:30 pm or on holidays or weekends, call: or . Ask the drawbridge operator to page the GOVERNMENT EMPLOYEE communications instructor.' Please DO NOT use MyChart for post-surgery concerns. 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 John Mg MD Workforce Investment Act Career Manager offered: Patient declines. OBJECTIVE: BP 108/74 Wt [...] Post Wall - Normal support Cervix / [place] - Normal support POP-Q: Prolapse Noted: No [...] mail. John Mg MD documented in this encounterUc [facility] Hospital10-19-2022 Miscellaneous Notes* Telephone Encounter - Eugenia [...] day. Eugenia Amaro RN documented in this encounterUc [facility] Hospital10-10-2022 History of Present illness Narrative* Cecy Vigil APRN.SOLAR PANEL TECHNICIAN - 02/23/2022 3:16 PM EDT [facility] Thor[facility] [place] Department of Thoracic Surgery TELEPHONE VISIT (audio [...] Total Time Spent: 11-20 minutes Cecy Vigil APRN.SOLAR PANEL TECHNICIAN [facility] - OUTPATIENT THORACIC SURGERY CLINIC NOTE PT NAME: Eren Merchant CLINIC NO: [id number] THORACIC SURGEON: Bar Ferrer M.D. DATE OF [...] - Pulmonary to manage, Dr. Quinton Vigil APRN.SOLAR PANEL TECHNICIAN documented in this encounterUc [facility] Hospital10-03-2022 Instructions* Patient Instructions* Karen Alcantara MD [...] your usual activities immediately. documented in this encounterUc [facility] Hospital10-03-2022 History of Present illness Narrative* Karen Alcantara MD - 02/16/2022 9:30 AM EDT Images from the original note were not included. . [facility] [place] Note Patient name: Eren Merchant PCP: Priyanka [...] bronchiectasis). Her case was presented at the ID ILD conference and the questio n of [...] Abs Lymph 1.00 - 4.00 k/uL 3.73 [place]% % 8.0 Abs [place] <0.87 k/uL 0.89 High Eosin% % 0.0 [...] DATE OF EXAM: Feb 12 2022 8:17AM [facility] 0541 [facility]: CHEST CT WITHOUT CONTRAST CLINICAL [...] calculus in upper pole of theleft kidney. Coding File Clerk (topogram) images: No additional findings. IMPRESSION: 1. [...] 08/05/2017 Added automatically from request for surgery [id number] Rectal bleed 09/05/14 Thymoma Resected 07/14/17, Masaoka [...] UNI/BI Tubal ligation LX PARTIAL COLECTOMY 12/23/2017 [facility] lap lysis of adhesions, left oopherectomy, right salpinoopherectomy, left salpingectomy, redo lap sigmoid colectomy w/ressection, lap mobilization of splenic flexure, lap appendectomy PAST SURGICAL HISTORY OF 10/2008 T9-L1 fusion, Dr. 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 May need to increase to 1500 mg I spent a total of 50 minutes on the date of the service which included preparing to see the patient, [id number] patient care, completing clinical documentation, obtaining and/or reviewing separately obtained history, performing a medically appropriate examination, ordering medications, tests, or procedures, and independently interpreting results (not separately reported). Karen Alcantara MD [facility] [place] documented in this encounterUc [facility] Hospital09-30-2022 Miscellaneous Notes* Telephone Encounter - Noa Gerard - 02/13/2022 10:09 AM EDT Reason for call: Mrs. Merchant would like to schedule a f/u appointment with Dr. Ferrer. Home and cell number [phone] Diagnosis Malignant neoplasm of thymus (HCC) Best regards, Noa documented in this encounterUc [facility] Hospital08-11-2022 Miscellaneous Notes* Telephone Encounter - Kiki Patel RN - 12/25/2021 8:24 AM EDT Duplicate message. See other mychart message. Kiki Patel RN documented in this encounterUc [facility] Hospital08-08-2022 History of Present illness Narrative* Clementina Zaldivar LPN - 12/22/2021 10:07 AM EDT Patient presents for COVID booster. Denies any problems at this time. Tolerated injection well. Clementina Zaldivar LPN documented in this encounterUc [facility] Hospital08-05-2022 History of Present illness Narrative* Priyanka Smith MD - 12/19/2021 9:20 AM EDT Chief Complaint Patient presents with: F/U 6 Month HPI Eren Merchant is a 61 year old female who presents here today for 6 month follow up. Pt here today for a 6 month follow up. Reports today is a good day. Going to [employer]. No bowel, Gi, or urinary issues. Does follow with Urologist Dr. Yang for OAB. Follows with [facility]. Did have recent US imaging due to [...] follows with Dr. Ferrer, Thoracic Surgeon and PHOTONICS ENGINEERING TECHNICIAN for malignant neoplasm of thymus and chronic [...] 08/05/2017 Added automatically from request for surgery [id number] Rectal bleed 09/05/14 Thymoma Resected 07/14/17, Masaoka [...] UNI/BI Tubal ligation LX PARTIAL COLECTOMY 12/23/2017 [facility] lap lysis of adhesions, left oopherectomy, right [...] Lymph% 12/04/2021 33.4 Abs Lymph 12/04/2021 3.73 [place]% 12/04/2021 8.0 Abs [place] 12/04/2021 0.89 (A) Eosin% 12/04/2021 0.0 Abs [...] Past Histories independently gathered by the clinical unit support representative and the remaining scribed note accurately describes [...] AM. Tess Persaud Ma documented in this encounterUc [facility] Hospital07-29-2022 Miscellaneous Notes* Telephone Encounter - Citlaly [...] 02/16/22. Citlaly Amaya RN documented in this encounterUc [facility] Hospital07-18-2022 History of Present illness Narrative* RT Vidal(R) [...] IV DATA: Not applicable SIGNED BY: RT Vidal(Quoc) December 01, 2021 1:42 PM documented in this encounterUc West [facility] Hospital07-13-2022 Miscellaneous Notes* Telephone Encounter - Reagan Vigil Ma - 11/26/2021 9:38 AM EDT Pharmacy called requesting the following refill. Pending Prescriptions Disp Refills MYRBETRIQ 50 MG TABLET,EXTENDED RELEASE 30 tablet 11 Sig: Take 1 tablet by mouth once daily. ARIANA: Yes Patient last appointment: Visit date not found Patient Phone numbers: [phone] (home) Request is for script(s) to be escript to pharmacy. Reagan Vigil Ma documented in this encounterUc [facility] Hospital07-13-2022 History of Present illness Narrative* Charis [...] Multiple0 Live Births0 Comment: 2 vaginal deliveries Home Appliance Tech History LMP: 01/07/2011, Postmenopausal Age at Menarche: Age at First : Age at Menopause: Home Appliance Tech History Comments: Sexual Activity: Yes; Male Contraception: [...] 08/05/2017 Added automatically from request for surgery [id number] Rectal bleed 09/05/14 Thymoma Resected 07/14/17, Masaoka [...] UNI/BI Tubal ligation LX PARTIAL COLECTOMY 12/23/2017 [facility] lap lysis of adhesions, left oopherectomy, right [...] external genitalia normal, normal Bartholin's glands, urethra, Cranston's glands, no vulvar lesions, no cervical lesions, [...] patient of results and follow up after URO/GOVERNMENT EMPLOYEE consult Charis Lopez APRN.CNM documented in this encounterCleveland [id number] Miscellaneous Notes* Telephone Encounter - Priyanka Smith MD - 11/18/2021 4:44 PM EDT Order filed Priyanka Smith MD * Telephone Encounter - Clementina Zaldivar LPN - 11/18/2021 3:26 PM EDT Patient scheduled for nurse visit 12/04/21 to receive Shingrix vaccine. Please place order at this time. Clementina Zaldivar LPN documented in this encounterUc West [facility] Hospital06-22-2022 Instructions* Patient Instructions* Cleo Maynard APRN.UBALDO - 11/05/2021 9:50 AM EDT ABOUT URINARY [...] and avoid tight-fitting clothing. documented in this encounterUc West [facility] Hospital06-22-2022 History of Present illness Narrative* Cleo [...] Multiple0 Live Births0 Comment: 2 vaginal deliveries Home Appliance Tech History LMP: 01/07/2011, Postmenopausal Age at Menarche: Age at First : Age at Menopause: Home Appliance Tech History Comments: Sexual Activity: Yes; Male Contraception: [...] 08/05/2017 Added automatically from request for surgery [id number] Rectal bleed 09/05/14 Thymoma Resected 07/14/17, Masaoka [...] UNI/BI Tubal ligation LX PARTIAL COLECTOMY 12/23/2017 [facility] lap lysis of adhesions, left oopherectomy, right [...] discuss Cleo Maynard APRN.CNM documented in this encounterUc [facility] Hospital04-04-2022 History of Present illness Narrative* Sam Cuenca MD - 08/18/2021 11:53 AM EDT [facility] [place], 08/12/2021: Name: Eren Merchant : 1960 INTERVAL [...] I am retiring from the staff of [facility] and the practice of Medicine on [...] PA-C. Roman Stroud MD. Sam Cuenca MD, [facility] [place] [facility] [address] [place] [id number] P: [phone] F: [phone] documented in this encounterUc West [facility] Hospital03-29-2022 Instructions* Patient Instructions* Sam Cuenca MD [...] I am retiring from the staff of [facility] and the practice of Medicine on [...] PA-C. Roman Stroud MD. Sam Cuenca MD, [facility] [place] [facility] [address] [place] [address] P: [phone] F: [phone] [email or web address] documented in this encounterUc [facility] Hospital03-29-2022 History of Present illness Narrative* Ernestina Tavarez RRT - 08/12/2021 1:31 PM EDT PULM FUNCTION SMARTBLOCK: Provider: Sam Cuenca MD Assisting Tech: Ernestina Tavarez RRT Spirometry: 1 System: [id number] documented in this encounterUc West Chester Hospital03-23-2022 Miscellaneous Notes* Telephone Encounter - Juwan Land APRN.CNP - 08/06/2021 11:15 AM EDT The following approved medication requests have been transmitted electronically. Signed Prescriptions Disp Refills omeprazole (PRILOSEC) 20 mg capsule 90 capsule 3 Sig: Take 1 capsule by mouth daily before breakfast. 1/2 hr before meal. ARIANA: No Juwan Land APRN.SAMIR * Telephone Encounter - Karen Soler Ma - 08/06/2021 10:50 AM EDT Patient last visit with PCP 06/18/21 Follow up appointment scheduled 12/19/21 Karen Soler Ma documented in this encounterUc West [facility] Hospital02-10-2021 History of Present illness Narrative* Sakshi SuazoRt)Yessy [...] 26, 2020 3:42 PM documented in this encounterUc [facility] Hospital09-28-2020 History of Past illness Narrative* Problem [...] Overview: Added automatically from request for surgery [id number] Open wound(s) (multiple) of unspecified site(s), without [...] of this encounter (statuses as of 06/22/2023) [facility] of Past illness Narrative* Problem Noted Date Diagnosed Date Resolved Date Thymoma, malignant 02/12/2020 02/06/202 4 Last Assessment & Plan: Assessment: S/p [...] Overview: Added automatically from request for surgery [id number] Open wound(s) (multiple) of unspecified site(s), without [...] of this encounter (statuses as of 08/09/2023) [facility] History of Past illness Narrative* Problem [...] Overview: Added automatically from request for surgery [id number] Open wound(s) (multiple) of unspecified site(s), without [...] of this encounter (statuses as of 08/09/2023) [facility] of Past illness Narrative* Problem [...] Overview: Added automatically from request for surgery [id number] Open wound(s) (multiple) of unspecified site(s), without [...] of this encounter (statuses as of 08/19/2023) [facility] of Past illness Narrative* Problem [...] Overview: Added automatically from request for surgery [id number] Open wound(s) (multiple) of unspecified site(s), without [...] of this encounter (statuses as of 08/21/2023) [facility] of Past illness Narrative* Problem [...] Overview: Added automatically from request for surgery [id number] Open wound(s) (multiple) of unspecified site(s), without [...] of this encounter (statuses as of 08/28/2023) [facility] of Past illness Narrative* Problem [...] Overview: Added automatically from request for surgery [id number] Open wound(s) (multiple) of unspecified site(s), without [...] of this encounter (statuses as of 09/02/2023) [facility] of Past illness Narrative* Problem [...] Overview: Added automatically from request for surgery [id number] Open wound(s) (multiple) of unspecified site(s), without [...] of this encounter (statuses as of 09/02/2023) [facility] of [facility] illness Narrative* Problem [...] Overview: Added automatically from request for surgery [id number] Open wound(s) (multiple) of unspecified site(s), without [...] of this encounter (statuses as of 08/06/2021) [facility] of [facility] illness Narrative* Problem [...] Overview: Added automatically from request for surgery [id number] Open wound(s) (multiple) of unspecified site(s), without [...] of this encounter (statuses as of 08/12/2021) [facility] of [facility] illness Narrative* Problem [...] Overview: Added automatically from request for surgery [id number] Open wound(s) (multiple) of unspecified site(s), without [...] of this encounter (statuses as of 08/18/2021) [facility] of [facility] illness Narrative* Problem [...] Overview: Added automatically from request for surgery [id number] Open wound(s) (multiple) of unspecified site(s), without [...] of this encounter (statuses as of 11/05/2021) [facility] of [facility] illness Narrative* Problem [...] Overview: Added automatically from request for surgery [id number] Open wound(s) (multiple) of unspecified site(s), without [...] of this encounter (statuses as of 11/19/2021) [facility] of [facility] Narrative* Problem [...] Overview: Added automatically from request for surgery [id number] Open wound(s) (multiple) of unspecified site(s), without [...] of this encounter (statuses as of 11/26/2021) [facility] of [facility] Narrative* Problem [...] Overview: Added automatically from request for surgery [id number] Open wound(s) (multiple) of unspecified site(s), without [...] of this encounter (statuses as of 11/26/2021) [facility] of [facility] Narrative* Problem [...] Overview: Added automatically from request for surgery [id number] Open wound(s) (multiple) of unspecified site(s), without [...] of this encounter (statuses as of 12/02/2021) [facility] of [facility] Narrative* Problem [...] Overview: Added automatically from request for surgery [id number] Open wound(s) (multiple) of unspecified site(s), without [...] of this encounter (statuses as of 12/12/2021) [facility] of [facility] Narrative* Problem [...] Overview: Added automatically from request for surgery [id number] Open wound(s) (multiple) of unspecified site(s), without [...] of this encounter (statuses as of 12/19/2021) [facility] Narrative* Problem [...] Overview: Added automatically from request for surgery [id number] Open wound(s) (multiple) of unspecified site(s), without [...] of this encounter (statuses as of 12/22/2021) [facility] Narrative* Problem [...] Overview: Added automatically from request for surgery [id number] Open wound(s) (multiple) of unspecified site(s), without [...] of this encounter (statuses as of 12/25/2021) [facility] Narrative* Problem [...] Overview: Added automatically from request for surgery [id number] Open wound(s) (multiple) of unspecified site(s), without [...] of this encounter (statuses as of 02/13/2022) [facility] Narrative* Problem [...] Overview: Added automatically from request for surgery [id number] Open wound(s) (multiple) of unspecified site(s), without [...] of this encounter (statuses as of 02/17/2022) [facility] Narrative* Problem [...] Overview: Added automatically from request for surgery [id number] Open wound(s) (multiple) of unspecified site(s), without [...] of this encounter (statuses as of 02/20/2022) [facility] Narrative* Problem [...] Overview: Added automatically from request for surgery [id number] Open wound(s) (multiple) of unspecified site(s), without [...] of this encounter (statuses as of 02/20/2022) [facility] Narrative* Problem [...] Overview: Added automatically from request for surgery [id number] Open wound(s) (multiple) of unspecified site(s), without [...] of this encounter (statuses as of 02/23/2022) [facility] Narrative* Problem [...] Overview: Added automatically from request for surgery [id number] Open wound(s) (multiple) of unspecified site(s), without [...] of this encounter (statuses as of 02/23/2022) [facility] Narrative* Problem [...] Overview: Added automatically from request for surgery [id number] Open wound(s) (multiple) of unspecified site(s), without [...] of this encounter (statuses as of 03/04/2022) [facility] Narrative* Problem [...] Overview: Added automatically from request for surgery [id number] Open wound(s) (multiple) of unspecified site(s), without [...] of this encounter (statuses as of 03/18/2022) [facility] Narrative* Problem [...] Overview: Added automatically from request for surgery [id number] Open wound(s) (multiple) of unspecified site(s), without [...] of this encounter (statuses as of 03/23/2022) [facility] History of Past illness Narrative* Problem [...] Overview: Added automatically from request for surgery [id number] Open wound(s) (multiple) of unspecified site(s), without [...] of this encounter (statuses as of 03/25/2022) [facility] History of Past illness Narrative* Problem [...] Overview: Added automatically from request for surgery [id number] Open wound(s) (multiple) of unspecified site(s), without [...] of this encounter (statuses as of 03/25/2022) [facility] History of Past illness Narrative* Problem [...] Overview: Added automatically from request for surgery [id number] Open wound(s) (multiple) of unspecified site(s), without [...] of this encounter (statuses as of 03/30/2022) [facility] History of Past illness Narrative* Problem [...] Overview: Added automatically from request for surgery [id number] Open wound(s) (multiple) of unspecified site(s), without [...] of this encounter (statuses as of 04/01/2022) [facility] History of Past illness Narrative* Problem [...] Overview: Added automatically from request for surgery [id number] Open wound(s) (multiple) of unspecified site(s), without [...] of this encounter (statuses as of 04/02/2022) [facility] History of Past illness Narrative* Problem [...] Overview: Added automatically from request for surgery [id number] Open wound(s) (multiple) of unspecified site(s), without [...] of this encounter (statuses as of 04/07/2022) [facility] History of Past illness Narrative* Problem [...] Overview: Added automatically from request for surgery [id number] Open wound(s) (multiple) of unspecified site(s), without [...] of this encounter (statuses as of 04/08/2022) [facility] History of Past illness Narrative* Problem [...] Overview: Added automatically from request for surgery [id number] Open wound(s) (multiple) of unspecified site(s), without [...] of this encounter (statuses as of 04/13/2022) [facility] History of Past illness Narrative* Problem [...] Overview: Added automatically from request for surgery [id number] Open wound(s) (multiple) of unspecified site(s), without [...] of this encounter (statuses as of 04/17/2022) [facility] History of Past illness Narrative* Problem [...] Overview: Added automatically from request for surgery [id number] Open wound(s) (multiple) of unspecified site(s), without [...] of this encounter (statuses as of 04/21/2022) [facility] History of Past illness Narrative* Problem [...] Overview: Added automatically from request for surgery [id number] Open wound(s) (multiple) of unspecified site(s), without [...] of this encounter (statuses as of 05/25/2022) [facility] History of Past illness Narrative* Problem [...] Overview: Added automatically from request for surgery [id number] Open wound(s) (multiple) of unspecified site(s), without [...] of this encounter (statuses as of 05/26/2022) [facility] History of Past illness Narrative* Problem [...] Overview: Added automatically from request for surgery [id number] Open wound(s) (multiple) of unspecified site(s), without [...] of this encounter (statuses as of 05/29/2022) [facility] History of Past illness Narrative* Problem [...] Overview: Added automatically from request for surgery [id number] Open wound(s) (multiple) of unspecified site(s), without [...] of this encounter (statuses as of 06/12/2022) [facility] History of Past illness Narrative* Problem [...] Overview: Added automatically from request for surgery [id number] Open wound(s) (multiple) of unspecified site(s), without [...] of this encounter (statuses as of 06/18/2022) [facility] History of Past illness Narrative* Problem [...] Overview: Added automatically from request for surgery [id number] Open wound(s) (multiple) of unspecified site(s), without [...] of this encounter (statuses as of 06/23/2022) [facility] History of Past illness Narrative* Problem [...] Overview: Added automatically from request for surgery [id number] Open wound(s) (multiple) of unspecified site(s), without [...] of this encounter (statuses as of 07/02/2022) [facility] History of Past illness Narrative* Problem [...] Overview: Added automatically from request for surgery [id number] Open wound(s) (multiple) of unspecified site(s), without [...] of this encounter (statuses as of 07/28/2022) [facility] History of Past illness Narrative* Problem [...] Overview: Added automatically from request for surgery [id number] Open wound(s) (multiple) of unspecified site(s), without [...] of this encounter (statuses as of 08/11/2022) [facility] History of Past illness Narrative* Problem [...] Overview: Added automatically from request for surgery [id number] Open wound(s) (multiple) of unspecified site(s), without [...] of this encounter (statuses as of 08/13/2022) [facility] History of Past illness Narrative* Problem [...] Overview: Added automatically from request for surgery [id number] Open wound(s) (multiple) of unspecified site(s), without [...] of this encounter (statuses as of 08/13/2022) [facility] History of Past illness Narrative* Problem [...] Overview: Added automatically from request for surgery [id number] Open wound(s) (multiple) of unspecified site(s), without [...] of this encounter (statuses as of 08/19/2022) [facility] History of Past illness Narrative* Problem [...] Overview: Added automatically from request for surgery [id number] Open wound(s) (multiple) of unspecified site(s), without [...] of this encounter (statuses as of 08/20/2022) [facility] History of Past illness Narrative* Problem [...] Overview: Added automatically from request for surgery [id number] Open wound(s) (multiple) of unspecified site(s), without [...] of this encounter (statuses as of 09/16/2022) [facility] History of Past illness Narrative* Problem [...] Overview: Added automatically from request for surgery [id number] Open wound(s) (multiple) of unspecified site(s), without [...] of this encounter (statuses as of 10/13/2022) [facility] History of Past illness Narrative* Problem [...] Overview: Added automatically from request for surgery [id number] Open wound(s) (multiple) of unspecified site(s), without [...] of this encounter (statuses as of 10/16/2022) [facility] History of Past illness Narrative* Problem [...] Overview: Added automatically from request for surgery [id number] Open wound(s) (multiple) of unspecified site(s), without [...] of this encounter (statuses as of 10/16/2022) [facility] History of Past illness Narrative* Problem [...] Overview: Added automatically from request for surgery [id number] Open wound(s) (multiple) of unspecified site(s), without [...] of this encounter (statuses as of 11/03/2022) [facility] History of Past illness Narrative* Problem [...] Overview: Added automatically from request for surgery [id number] Open wound(s) (multiple) of unspecified site(s), without [...] of this encounter (statuses as of 11/06/2022) [facility] History of Past illness Narrative* Problem [...] Overview: Added automatically from request for surgery [id number] Open wound(s) (multiple) of unspecified site(s), without [...] of this encounter (statuses as of 11/16/2022) [facility] History of Past illness Narrative* Problem [...] Overview: Added automatically from request for surgery [id number] Open wound(s) (multiple) of unspecified site(s), without [...] of this encounter (statuses as of 11/27/2022) [facility] History of Past illness Narrative* Problem [...] Overview: Added automatically from request for surgery [id number] Open wound(s) (multiple) of unspecified site(s), without [...] of this encounter (statuses as of 12/23/2022) [facility] History of Past illness Narrative* Problem [...] Overview: Added automatically from request for surgery [id number] Open wound(s) (multiple) of unspecified site(s), without [...] of this encounter (statuses as of 01/05/2023) [facility] History of Past illness Narrative* Problem [...] Overview: Added automatically from request for surgery [id number] Open wound(s) (multiple) of unspecified site(s), without [...] of this encounter (statuses as of 01/12/2023) [facility] History of Past illness Narrative* Problem [...] Overview: Added automatically from request for surgery [id number] Open wound(s) (multiple) of unspecified site(s), without [...] of this encounter (statuses as of 01/15/2023) [facility] History of Past illness Narrative* Problem [...] Overview: Added automatically from request for surgery [id number] Open wound(s) (multiple) of unspecified site(s), without [...] of this encounter (statuses as of 02/09/2023) [facility] History of Past illness Narrative* Problem [...] Overview: Added automatically from request for surgery [id number] Open wound(s) (multiple) of unspecified site(s), without [...] of this encounter (statuses as of 02/24/2023) [facility] History of Past illness Narrative* Problem [...] Overview: Added automatically from request for surgery [id number] Open wound(s) (multiple) of unspecified site(s), without [...] of this encounter (statuses as of 02/25/2023) [facility] History of Past illness Narrative* Problem [...] Overview: Added automatically from request for surgery [id number] Open wound(s) (multiple) of unspecified site(s), without [...] of this encounter (statuses as of 03/01/2023) [facility] History of Past illness Narrative* Problem [...] Overview: Added automatically from request for surgery [id number] Open wound(s) (multiple) of unspecified site(s), without [...] of this encounter (statuses as of 03/09/2023) [facility] History of Past illness Narrative* Problem [...] Overview: Added automatically from request for surgery [id number] Open wound(s) (multiple) of unspecified site(s), without [...] of this encounter (statuses as of 03/21/2023) [facility] History of Past illness Narrative* Problem [...] Overview: Added automatically from request for surgery [id number] Open wound(s) (multiple) of unspecified site(s), without [...] of this encounter (statuses as of 03/21/2023) [facility] History of Past illness Narrative* Problem [...] Overview: Added automatically from request for surgery [id number] Open wound(s) (multiple) of unspecified site(s), without [...] of this encounter (statuses as of 03/21/2023) [facility] Estevan Crowder [facility] Note Date/Time December 22, 2024 1:1 7pm [facility] Medical Records Department [address] [place] [address] Pre-Anesthesia Evaluation 12/22/24 1306 MR#: [id number] Acct: [id number] Name: EREN MERCHANT Rep #:[id number] : 1960 64 From: Estevan Crowder MD PCP: Dr. 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 [...] am of surgery: Levothyroxine PONV PONV - tool 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: PONV - tool 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 Female Yes 12/19/24 12:42 HX of Motion [...] 12/22/24 12:21 Respiratory Assessment Respiratory Assessment - tool 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: Respiratory Tract Infection Hx - tool 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 Hx Respiratory Tract Infection No 12/19/24 12:42 STOP Sleep Apnea STOP Sleep Apnea - tool 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: STOP Sleep Apnea - tool 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 Hx Hypertension No 12/19/24 12:42 Hx Sleep [...] Tobacco Use History Tobacco Use History - tool 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: Tobacco Use History - tool 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 Tobacco Use Smoking Status Never smoker 12/19/24 12:42 Hx Tobacco Use No 12/19/24 12:42 Years Smoking Packs Smoked per Day Smoking Cessation Date was within the last 15 years Hx Smoking Cessation Date Hx Smoking Cessation Counseling Hematologic Medial History Hematologic Hx - tool 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: 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 Hx of Blood Transfusion No 12/19/24 12:42 [...] confused, unrespo /Reproduction History /Reproductive History - tool 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: /Reproductive Hx- tool 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 Hx Now Gestational Age (in weeks): EDC: [...] Reaction Status Date / Time cetirizine (From [facility]) Allergy Intermediate Rash Verified 12/22/24 12:18 [...] MD Cosigner Signature: Date CC: ~ Signed [facility] Work Phone: Consult note Author Ana [facility] Note Date/Time December 22, 2024 1:5 9pm [facility] Medical Records Department [address] [place] [address] Anesthesia Postop Eval I 12/22/24 1358 MR#: [id number] Acct: [id number] Name: EREN MERCHANT Javier Rep #:[id number] : 1960 64 From: Ana Pardo CRNA PCP: Dr. Gonzalo Day MD Status :REG SDC Y Race: C Location: [place] [address] Anesthesia: Postop Eval I Current Vital Signs [...] 12/22/24 1359 <Electronically signed by Ana booker STATISTICAL TYPIST> Date _ Ana Pardo STATISTICAL TYPIST Cosigner Signature: Date CC: ~ Signed [facility] Work Phone: Consult note Author Jhony Brown [facility] Note Date/Time February 16, 2025 6: 43am [facility] Medical Records Department [address] [place] [address] Pre-Anesthesia Evaluation 02/16/25 0642 MR#: [id number] Acct: [id number] Name: EREN MERCHANT Rep #:[id number] : 1960 64 From: Jhony Brown MD PCP: Dr. Gonzalo Day MD Status :REG SDC Y Race: C Location: [place] [address] ASA Classification* ASA Classification ASA Classification: 2 Assessment & Plan Anesthesia* Anesthesia Assessment Anesthesia [...] risk assessments. Anesthesia Type Anesthesia Type: MAC Anesthesia Focused Assessment* Temperature: 97.4 F Pulse Rate: 84 Blood Pressure: 103/63 Respiratory Rate: 16 Pulse Ox: 97 Airway Assessment Mouth opens: >3 cm Mallampati Score: II Labs Anesthesia Preop lab: CBC WBC, (4.4-11.0) 22.8 K/mm3 H 01/21/25, 20:00 RBC, (4.2-5.4) 3.24 M/mm3 L 01/21/25, 20:00 Hgb, (12.0-15.0) 8.5 g/dL L 01/21/25, 20:00 Hct, (37-47) 26.9 % L 01/21/25, 20:00 Plt Count, (150-450) 281 K/mm3 01/21/25, 20:00 CHEMISTRY Potassium, (3.3-5.1) 3.5 mmol/L 01/21/25, 20:00 Sodium, (133-145) 132 mmol/L L 01/21/25, 20:00 Magnesium, (1.6-2.6) 2.4 mg/dL 03/03/24, 14:20 Phosphorus, (2.5-4.9) 2.7 mg/dL 12/26/17, 05:40 BUN, (4-19) 32 mg/dL H 01/21/25, 20:00 Creatinine, (0.70-1.20) 2.06 mg/dL H 01/21/25, 20:00 Glucose, (70-99) 157 mg/dL H 01/21/25, 20:00 TSH, (0.358-3.740) 2.500 uIU/mL 03/03/24, 14:20 COAG Pre-Assessment Diagnosis/Proposed Procedure Planned Operative Procedure(s): COLONSCOPY Anesthesia History Anesthesia History - tool 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: Anesthesia History - tool 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 Hx Hospitalization Yes: 01/21/2025 TRANSFERRED TO 02/12/25 13:10 [facility] Any Problems With Anesthesia No 02/12/25 13:10 Cholinesterase deficiency No 02/12/25 13:10 You/Your Family Experience No 02/12/25 13:10 fever (hyperthermia) with Relationship Recent Exposure to Contagious No 02/16/25 06:18 Disease Does patient have nerve No 02/12/25 13:10 stimulator Patient instructed to have device shut off --Does patient have Pacemaker No 02/16/25 06:20 or ICD? When Was Last Pacemaker Check QUESTION #4 FULL TEXT: You/Your Family Experience fever (hyperthermia) with Anesthesia Last Oral Intake Last Oral intake: Last Oral Intake NPO since 00:00 02/16/25 06:20 Meds taken in AM with sips of Yes 02/16/25 06:20 water? 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: PONV - tool 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 Female Yes 02/12/25 13:10 HX of Motion Sickness Yes 02/12/25 13:10 HX of N/V After Surgery No 02/12/25 13:10 Non-Smoker Yes 02/12/25 13:10 Duration of Surgery greater No 02/12/25 13:10 than 60 minutes Number of Risk Factors 3 02/12/25 13:10 PONV Score Moderate Risk 02/12/25 13:10 Height & Weight Height & Weight: Anesthesia: Height & Weight Height 5 ft 5 in 02/16/25 06:20 Weight: 71.668 kg 02/16/25 06:20 Body Mass Index (BMI) 26.2 02/16/25 06:20 Respiratory Assessment Respiratory Assessment - tool 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: Respiratory Tract Infection Hx - tool 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 Hx Respiratory Tract Infection No 02/12/25 13:10 STOP Sleep Apnea STOP Sleep Apnea - tool 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: STOP Sleep Apnea - tool 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 Hx Hypertension No: HYPOTENSION 02/12/25 13:10 Hx Sleep Apnea No 02/12/25 13:10 CPAP BIPAP Do you snore loudly (louder No 02/12/25 13:10 than talking or can be heard Do you often feel tired/ No 02/12/25 13:10 fatigued/ sleepy during daytime? Has anyone observed you stop No 02/12/25 13:10 breathing during sleep? STOP Results Negative 02/12/25 13:10 QUESTION #5 FULL TEXT : Do you snore loudly (louder than talking or can be heard through closed doors)? 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 Specify any problems FEVER 02/12/25 13:10 Hx of Preganancy in last 3 No 02/12/25 13:10 Months Nurse Filling Out Transfusion DSCHRIBER 02/12/25 13:10 & Questions: Date: 02/12/25 02/12/25 13:10 Time: 13:12 02/12/25 13:10 Patient unable to answer at this time (ie. confused, unrespo /Reproduction History /Reproductive History - tool 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: /Reproductive Hx- tool 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 Hx Now Gestational Age (in weeks): EDC: Hx Hx Para Hx Section SAB No 02/12/25 13:10 Active Medications Active Medications: Current Medications Generic Name Dose Route Start Last Admin Trade Name Freq PRN Reason Stop Dose Admin Lactated Ringer's 1,000 mls @ 15 mls/hr 02/16/25 06:00 02/16/25 06:28 IV 15 mls/hr .Q48H SHANTA Administration PFSH Medical History Loss of hearing Walker as ambulation aid Low iron Injury of head and neck History of hiatal hernia Gastric reflux Back pain Parkinson's disease Orthostatic hypotension History [...] mg chewable tablet 81 mg PO DAILY@0800 06/1702/11/25 History cholecalciferol (vitamin D3) 25 1,000 unit PO BID 06/1702/15/25 History mcg (1,000 unit) tablet (Vitamin D3) mycophenolate mofetil 500 mg 500 mg PO BID 03/04/24 History tablet (CellCept) levothyroxine 100 mcg capsule 100 mcg PO QDAY 04/06/24 02/16/25 05:20 History ondansetron 4 mg disintegrating 4 mg PO Q8H PRN nausea and vomiting 04/06/24 Unknown History tablet Lactobacillus acidophilus 250 500 mmu cells PO DAILY 0 06/02/24 12/21/24 History million cell capsule (Probiotic Acidophilus) amitriptyline 50 mg tablet 100 mg PO QHS 07/07/2407/11 History carbidopa 25 mg-levodopa 100 mg 1 tab PO TID 10/11/24 02/15/25 18:00 History tablet (Sinemet) carbidopa 25 mg tablet 25 mg PO TID 11/08/24 18:00 History multivitamin (Daily Multi-Vitamin 1 tab PO DAILY 12/1902/15/25 History tablet) fludrocortisone 0.1 mg tablet 0.2 mg PO DAILY 12/29/24 02/16/25 05:20 History pantoprazole 20 mg tablet,delayed 20 mg PO QDAY #30 ta bs 01/22/25 02/16/25 05:20 Rx release ferrous sulfate 325 mg (65 mg 325 mg PO DAILY 02/12/25 02/15/25 History iron) tablet (Iron (ferrous sulfate)) fludrocortisone 0.1 mg tablet 0.1 mg PO QHS 02/12/25 1 History Allergy/AdvReac Type Severity Reaction Status Date / Time cetirizine (From Zyrtec) Allergy Intermediate Rash Verified 02/16/25 06:14 erythromycin base AdvReac Intermediate Diarrhea Verified 02/16/25 06:14 azithromycin AdvReac Mild Diarrhea Verified 02/16/25 06:14 Family History Mother Thyroid disorder Hypertension Father Heart disease Hypertension COPD (chronic obstructive pulmonary disease) Surgical History History of hand surgery History of lithotripsy Hx of biopsy S/P laparoscopic appendectomy Hx of colonoscopy History of esophagogastroduodenoscopy (EGD) Hx of tubal ligation Hx of bladder repair surgery H/O thymectomy History of spinal fusion History of cholecystectomy History of colon resection Social History Smoking Status: Never smoker alcohol intake: current alcohol intake frequency: holidays/special occasions only Review of Systems (Anesthesia) ROS Narrative System reviewed and no additional complaints, except as documented. 02/16/25642 <Electronically signed by Jhony Brown MD > Date _ Jhony Jones Signature: Date CC: ~ Signed [facility] Work Phone: Consult note Author Sam Sanchez [facility] Note Date/Time February 16, 2025 8: 12am [facility] Medical Records Department [address] [place] [id number] Anesthesia Postop Eval I 02/16/25810 MR#: [id number] Acct: [id number] Name: EREN MERCHANT Javier Rep #:[id number] : 1960 64 From: Sam Sanchez PCP: Dr. Gonzalo Day MD Status :[facility] Y Race: C Location: [place] [address] Anesthesia: Postop Eval I Current Vital Signs Temperature: 97.3 F Pulse Rate: 78 Blood Pressure: 127/78 Respiratory Rate: 16 Pulse Ox: 100 Oxygen Delivery Method: Room Air Assessment Airway patent: Yes Spontaneous unlabored respirations: Yes Mental status: Awake nausea: No Vomiting: No Anesthesia Complication: No Fluid Hydration Crystalloid volume administer (ml): 400 Total IV fluid infused: 400 Progress Note Anesthesia document: Postop Eval 1 completed: Yes 02/16/25811 <Electronically signed by Sam Sanchez > Date _ Sam Jones Signature: Date CC: ~ Signed [facility] Work Phone: Evaluation note* Diagnosis Nausea Nausea alone Epigastric pain Abdominal pain, epigastric [facility] Diagnosis NSIP (nonspecific interstitial pneumonia) (HCC) Other specified alveolar and parietoalveolar pneumonopathies [facility] Diagnosis NSIP (nonspecific interstitial pneumonia) (HCC)- Primary Other specified alveolar and parietoalveolar pneumonopathies Antisynthetase syndrome (HCC) Autoimmune disease, not elsewhere classified Esophageal dysmotility Dyskinesia of esophagus History of immunosuppressive therapy Personal history of immunosuppressive therapy Interstitial pulmonary disease (HCC) Postinflammatory pulmonary fibrosis [facility] Diagnosis Urinary urgency- Primary Urgency of urination Overactive bladder Hypertonicity of bladder [facility] Diagnosis Need for vaccination- Primary Need for prophylactic vaccination and inoculation against unspecified single disease [facility] Diagnosis Overactive bladder- Primary Hypertonicity of bladder [facility] Diagnosis Cystocele, midline- Primary Encounter for gynecological examination (general) (routine) without abnormal findings Encounter for screening mammogram for breast cancer Urinary urgency Urgency of urination Urinary frequency Vaginal atrophy Postmenopausal atrophic vaginitis [facility] Diagnosis Cystocele, midline Urinary urgency Urgency of urination Urinary frequency [facility] Diagnosis Hypothyroidism, unspecified type- Primary Chronic [...] therapeutic drug monitoring [facility] Diagnosis Need for vaccination- Primary Need for prophylactic vaccination and inoculation against unspecified single disease [facility] Diagnosis NSIP (nonspecific interstitial pneumonia) (HCC)- Primary Other specified alveolar and parietoalveolar pneumonopathies Ground glass opacity present on imaging of lung Encounter for screening for osteoporosis Special screening for osteoporosis longterm current use of systemic steroids Encounter for long-term (current) use of steroids longterm current use of immunosuppressive drug [facility] Diagnosis Steroid-induced osteopenia- Primary Disorder of bone and cartilage, unspecified [facility]* Diagnosis Lung nodules- Primary Other nonspecific abnormal finding of lung field [facility]* Diagnosis Brad infection Candidiasis of unspecified site [facility]* Diagnosis Acute cystitis with hematuria- Primary Acute cystitis [facility]* Diagnosis Acute cystitis with hematuria- Primary Acute cystitis Cystocele, midline Urinary urgency Urgency of urination Urinary frequency Overactive bladder Hypertonicity of bladder [facility]* Diagnosis Urinary frequency- Primary [facility]* Diagnosis NSIP (nonspecific interstitial pneumonia) (HCC)- Primary Other specified alveolar and parietoalveolar pneumonopathies [facility] Diagnosis NSIP (nonspecific interstitial pneumonia) (HCC)- Primary Other specified alveolar and parietoalveolar pneumonopathies High risk medication use Encounter for long-term (current) use of other medications [facility] Diagnosis Brad infection Candidiasis of unspecified site [facility]* Diagnosis Gross hematuria- Primary [facility] Diagnosis Acute cystitis with hematuria- Primary Acute cystitis [facility]* Diagnosis Hypothyroidism, unspecified type [facility]* Diagnosis 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- Primary [facility]* Diagnosis Acquired hypothyroidism- Primary Unspecified hypothyroidism Brad infection Candidiasis of unspecified site Need for vaccination Need for prophylactic vaccination and inoculation against unspecified single disease ILD (interstitial lung disease) ([facility]) Postinflammatory pulmonary fibrosis [facility] Diagnosis Sore throat- Primary Acute pharyngitis Fever, unspecified fever cause [facility]* Diagnosis Kidney stone- Primary Calculus of kidney 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 Hydronephrosis with ureteropelvic junction (UPJ) obstruction [facility]* Diagnosis Acute cough- Primary Sinobronchitis Unspecified sinusitis (chronic) [facility] Diagnosis Bronchitis- Primary Bronchitis, not specified as acute or chronic ILD (interstitial lung disease) ([facility]) Postinflammatory pulmonary fibrosis Subacute cough Cough [facility]* Diagnosis OAB (overactive bladder)- Primary Hypertonicity of bladder [facility]* Diagnosis Nocturia- Primary Urinary frequency OAB (overactive bladder) Hypertonicity of bladder [facility]* Diagnosis Hydronephrosis with ureteropelvic junction (UPJ) obstruction [facility] Diagnosis Kidney stone- Primary Calculus of kidney [facility]* Diagnosis Urinary frequency- Primary OAB (overactive bladder) Hypertonicity of bladder Nocturia Preop examination Preoperative examination, unspecified [facility]* Diagnosis NSIP (nonspecific interstitial pneumonitis) ([facility])- Primary Other specified alveolar and parietoalveolar pneumonopathies Urinary frequency OAB (overactive bladder) Hypertonicity of bladder Nocturia Preop examination Preoperative examination, unspecified [facility]* Diagnosis NSIP (nonspecific interstitial pneumonitis) ([facility])- Primary Other specified alveolar and parietoalveolar pneumonopathies Urinary frequency OAB (overactive bladder) Hypertonicity of bladder Nocturia Preop examination Preoperative examination, unspecified [facility] Diagnosis Brad infection- Primary Candidiasis of unspecified site Urinary frequency OAB (overactive bladder) Hypertonicity of bladder Nocturia Preop examination Preoperative examination, unspecified [facility]* Diagnosis Hypothyroidism, unspecified type- Primary Brad esophagitis ([facility]) Candidiasis of the esophagus Epigastric pain Abdominal pain, epigastric Esophageal dysmotility Dyskinesia of esophagus ILD (interstitial lung disease) ([facility]) Postinflammatory pulmonary fibrosis OAB (overactive bladder) Hypertonicity of bladder Low sodium levels Hyposmolality and/or hyponatremia 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) Other disorders of neurohypophysis Thymoma, malignant (HCC) Malignant neoplasm of thymus Urinary frequency OAB (overactive bladder) Hypertonicity of bladder Nocturia Preop examination Preoperative examination, unspecified [facility] Diagnosis Preoperative examination- Primary Preoperative examination, [...] Preoperative examination, unspecified [facility]* Diagnosis Preoperative examination- Primary Preoperative examination, unspecified OAB (overactive bladder) Hypertonicity of bladder Urge urinary incontinence Urge incontinence Urinary frequency Urinary urgency Urgency of urination Urinary frequency OAB (overactive bladder) Hypertonicity of bladder Nocturia Preop examination Preoperative examination, unspecified [facility] Diagnosis Post-operative state- Primary Other postprocedural status Urinary frequency [facility]* Diagnosis Need for vaccination- Primary Need for prophylactic vaccination and inoculation against unspecified single disease [facility]* Diagnosis Encounter for screening mammogram for breast cancer [facility]* Diagnosis Gross hematuria [facility] Diagnosis NSIP (nonspecific interstitial pneumonia) (HCC) Other specified alveolar and parietoalveolar pneumonopathies [facility]* Diagnosis Medicare annual wellness visit, initial- [...] 30-34.9 Obesity, unspecified [facility] Diagnosis Encounter for screening mammogram for malignant neoplasm of breast Other screening mammogram [facility]* Diagnosis Encounter for screening mammogram for malignant neoplasm of breast- Primary Other screening mammogram [facility] Diagnosis Overactive bladder- Primary Hypertonicity of bladder Urinary frequency Dysuria Neurostimulator device in situ [facility] Diagnosis Urinary frequency- Primary Vaginal burning Other specified symptom associated with female genital organs [facility] Diagnosis NSIP (nonspecific interstitial pneumonitis) (HCC)- Primary Other specified alveolar and parietoalveolar pneumonopathies Current chronic use of systemic steroids longterm current use of immunosuppressive drug [facility]* Diagnosis Overactive bladder- Primary Hypertonicity of bladder Vulvar burning Unspecified symptom associated with female genital organs Vaginal atrophy Postmenopausal atrophic vaginitis [facility] Diagnosis Tremor- Primary Abnormal involuntary movements [facility] Diagnosis Kidney stone Calculus of kidney [facility] Diagnosis Kidney stone- Primary Calculus of kidney [facility] Diagnosis Kidney stone- Primary Calculus of kidney [facility] Diagnosis Encounter for gynecological examination (general) (routine) without abnormal findings- Primary Pap smear for cervical cancer screening Screening for malignant neoplasm of the cervix Encounter for screening mammogram for breast cancer [facility] Diagnosis Kidney stone Calculus of kidney [facility] Diagnosis Overactive bladder- Primary Hypertonicity of bladder Urinary frequency [facility] Diagnosis Kidney stone- Primary Calculus of kidney Hypothyroidism, unspecified type- Primary Tremor Abnormal involuntary movements Low sodium levels Hyposmolality and/or hyponatremia ILD (interstitial lung disease) (HCC) Postinflammatory pulmonary fibrosis Stage 3a chronic kidney disease (HCC) [facility]* Diagnosis Tremor- Primary Abnormal involuntary movements [...] and behavioral disorders [facility]* Diagnosis Hyponatremia- Primary Hyposmolality and/or hyponatremia [...] [facility]* Diagnosis Hyponatremia- Primary Hyposmolality and/or hyponatremia [...] (HCC) Secondary Parkinsonism documented in this encounter [facility] note* Diagnosis Hyponatremia- Primary Hyposmolality and/or [...] interstitial cystitis- Primary [facility] Diagnosis Hyponatremia- Primary Hyposmolality and/or hyponatremia [...] triglycerides Pure hyperglyceridemia [facility]* Diagnosis Hyponatremia- Primary Hyposmolality and/or hyponatremia [...] kidney disease (HCC) [facility] Diagnosis Hyponatremia- Primary Hyposmolality and/or hyponatremia [...] kidney disease (HCC) [facility]* Diagnosis Hyponatremia- Primary Hyposmolality and/or hyponatremia [...] [facility] Diagnosis Hyponatremia- Primary Hyposmolality and/or hyponatremia [...] Chest pain, unspecified [facility] Diagnosis Hyponatremia- Primary Hyposmolality and/or hyponatremia [...] recommendation and said she would go to [facility]. documented in this encounter [facility] note* Diagnosis Hyponatremia- Primary Hyposmolality and/or [...] Abnormal involuntary movements documented in this encounter [facility] note* Diagnosis Hydronephrosis with urinary obstruction due to ureteral calculus- Primary Pyelonephritis Unspecified pyelonephritis Syncope and collapse Hydronephrosis with urinary obstruction due to ureteral calculus Esophageal dysmotility Dyskinesia of esophagus Esophageal dysmotility Dyskinesia of esophagus Calculus of ureter [facility] Diagnosis Hyponatremia- Primary Hyposmolality and/or hyponatremia [...] hypothyroidism Unspecified hypothyroidism ILD (interstitial lung disease) ([facility]) Postinflammatory pulmonary fibrosis documented in this encounter [facility] note* Diagnosis Hyponatremia- Primary Hyposmolality and/or [...] [facility]* Diagnosis Hydronephrosis with urinary obstruction due to ureteral calculus- Primary documented in this encounter [facility] note* Diagnosis Calculus, ureter [N20.1]- Primary Calculus of ureter documented in this encounter [facility] note* Diagnosis Hyponatremia- Primary Hyposmolality and/or [...] site unspecified- Primary documented in this encounter [facility] note* Diagnosis Hyponatremia- Primary Hyposmolality and/or [...] site unspecified- Primary documented in this encounter [facility] note* Diagnosis Hyponatremia- Primary Hyposmolality and/or [...] interstitial cystitis- Primary documented in this encounter [facility] note* Diagnosis Hyponatremia- Primary Hyposmolality and/or [...] in 6-8 weeks [facility] Diagnosis Hyponatremia- Primary Hyposmolality and/or [...] Primary Secondary adrenal insufficiency (HCC) Glucocorticoid deficiency longterm systemic 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 documented in this encounter [facility] note* Diagnosis Hyponatremia- Primary Hyposmolality and/or [...] Other corticoadrenal overactivity documented in this encounter [facility] note* Diagnosis Hyponatremia- Primary Hyposmolality and/or [...] disease (HCC)- Primary [facility]* Diagnosis Hyponatremia- Primary Hyposmolality and/or hyponatremia [...] interstitial cystitis- Primary [facility] Diagnosis Hyponatremia- Primary Hyposmolality and/or hyponatremia [...] both knees- Primary documented in this encounter [facility] note* Diagnosis Hyponatremia- Primary Hyposmolality and/or [...] of both knees [facility] Diagnosis Hyponatremia- Primary Hyposmolality and/or hyponatremia [...] due to drugs [facility] Diagnosis Hyponatremia- Primary Hyposmolality and/or [...] f/u 6 weeks documented in this encounter [facility] note* Diagnosis Hyponatremia- Primary Hyposmolality and/or [...] and parietoalveolar pneumonopathies documented in this encounter [facility] note* Diagnosis Hyponatremia- Primary Hyposmolality and/or [...] Pain in limb [facility]* Diagnosis Hyponatremia- Primary Hyposmolality and/or hyponatremia [...] interstitial cystitis- Primary NSIP (nonspecific interstitial pneumonitis) (HCC)- Primary Other specified alveolar and parietoalveolar pneumonopathies 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 CKD stage 3b, GFR 30-44 ml/min ([facility]) [facility]* Diagnosis Hyponatremia- Primary Hyposmolality and/or hyponatremia [...] Hypothyroidism, unspecified type documented in this encounter [facility] note* Diagnosis Hyponatremia- Primary Hyposmolality and/or [...] Pain in limb documented in this encounter [facility] note* Diagnosis Hyponatremia- Primary Hyposmolality and/or [...] Pain in limb [facility] Diagnosis Hyponatremia- Primary Hyposmolality and/or hyponatremia [...] status (age-related) (natural) documented in this encounter [facility] note* Diagnosis Hyponatremia- Primary Hyposmolality and/or [...] arms Orthostatic hypotension [facility] Diagnosis Hyponatremia- Primary Hyposmolality and/or hyponatremia [...] Primary Gross hematuria [facility] Diagnosis Hyponatremia- Primary Hyposmolality and/or hyponatremia [...] [facility] Diagnosis Hyponatremia- Primary Hyposmolality and/or hyponatremia [...] [facility]* Diagnosis Hyponatremia- Primary Hyposmolality and/or hyponatremia [...] kidney disease (HCC) [facility] Diagnosis Hyponatremia- Primary Hyposmolality and/or hyponatremia [...] Primary Dysuria- Primary [facility] Diagnosis Hyponatremia- Primary Hyposmolality and/or hyponatremia [...] for breast cancer documented in this encounter [facility] note* Diagnosis Hyponatremia- Primary Hyposmolality and/or [...] Hypothyroidism, unspecified type documented in this encounter [facility] note* Diagnosis Hyponatremia- Primary Hyposmolality and/or [...] Dizziness and giddiness [facility] Diagnosis Hyponatremia- Primary Hyposmolality and/or hyponatremia [...] [facility] Diagnosis Hyponatremia- Primary Hyposmolality and/or hyponatremia [...] Orbital pain, left [facility] Diagnosis Hyponatremia- Primary Hyposmolality and/or hyponatremia [...] and parietoalveolar pneumonopathies documented in this encounter [facility] note* Diagnosis Hyponatremia- Primary Hyposmolality and/or [...] Nausea Nausea alone documented in this encounter [facility] note* Diagnosis Hyponatremia- Primary Hyposmolality and/or [...] Hypertonicity of bladder documented in this encounter [facility] note* Diagnosis Hyponatremia- Primary Hyposmolality and/or [...] history of fall documented in this encounter [facility] note* Diagnosis Hyponatremia- Primary Hyposmolality and/or [...] [facility] Diagnosis Hyponatremia- Primary Hyposmolality and/or hyponatremia [...] and parietoalveolar pneumonopathies [facility]* Diagnosis Hyponatremia- Primary Hyposmolality and/or hyponatremia [...] On Cellcept therapy documented in this encounter [facility] note* Diagnosis Hyponatremia- Primary Hyposmolality and/or [...] history of fall documented in this encounter [facility] note* Diagnosis Hyponatremia- Primary Hyposmolality and/or [...] syndrome of menopause documented in this encounter [facility] note* Diagnosis Hyponatremia- Primary Hyposmolality and/or [...] history of fall documented in this encounter [facility] note* Diagnosis Hyponatremia- Primary Hyposmolality and/or [...] Chronic interstitial cystitis documented in this encounter [facility] note* Diagnosis Hyponatremia- Primary Hyposmolality and/or [...] (RL[facility]) Orthostatic hypotension documented in this encounter [facility] note* Diagnosis Hyponatremia- Primary Hyposmolality and/or [...] unspecified whether stage 3a or 3b CKD ([facility]) documented in this encounter [facility] note* Diagnosis Hyponatremia- Primary Hyposmolality and/or [...] giddiness 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 (HCC)- Primary Glucocorticoid deficiency 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 Chronic interstitial cystitis- Primary Chronic interstitial cystitis- Primary documented in this encounter [facility] note* Diagnosis Hyponatremia- Primary Hyposmolality and/or [...] warts Condyloma acuminatum [facility] Diagnosis Hyponatremia- Primary Hyposmolality and/or hyponatremia [...] manifestations fluctuate (HCC) [facility]* Diagnosis Hyponatremia- Primary Hyposmolality and/or hyponatremia [...] [facility] Diagnosis Hyponatremia- Primary Hyposmolality and/or hyponatremia [...] Calculus of kidney [facility] Diagnosis Hyponatremia- Primary Hyposmolality and/or hyponatremia [...] [facility]* Diagnosis Vaginal bleeding- Primary Other specified noninflammatory disorder of vagina Vaginal bleeding Other specified noninflammatory disorder of vagina Post-menopausal bleeding Postmenopausal bleeding Stage 3a chronic kidney disease (HCC) Post-menopausal bleeding Postmenopausal bleeding [facility] Diagnosis Hyponatremia- Primary Hyposmolality and/or hyponatremia [...] Postinflammatory pulmonary fibrosis [facility] Diagnosis Hyponatremia- Primary Hyposmolality and/or [...] than malignant neoplasm [facility] Author Aditya Cota [facility] Note Date/Time February 16, 2025 6: 53am [facility] Medical Records Department [address] [place] [id number] History & Physical Exam 02/16/25 0651 MR#: [id number] Acct: [id number] Name: EREN MERCHANT Rep #:[id number] : [id number] 64 From: Aditya Cota DO PCP: Dr. Gonzalo Day MD Status :[facility] Location: [place] [address] HPI - General General Date of Admission: 02/16/25 Date of Service: 02/16/25 Chief Complaint: constipation HPI Narrative EREN MERCHANT, is a 64 F who presents [Chief Complaint: abd pain . [facility] established March 2024 after [facility] hospitalization [...] examined colon. - No specimens collected OV 12.29. patient has had just 1 bowel movement since her colonoscopy. Colonoscopy was unable to be completed due to stool in the entire colon. Lavage was attempted. Patient has been taking Trulance daily which has reduced her abdominal pain but has not produced bowel movements as well as Linzess did. She denies abdominal pain, nausea vomiting, or lack of appetite. [facility] Medical History Loss of hearing Walker as ambulation aid Low iron Injury of head and neck History of hiatal hernia Gastric reflux Back pain Parkinson's disease Orthostatic hypotension History [...] mg chewable tablet 81 mg PO DAILY@0800 06/1702/11/25 History cholecalciferol (vitamin D3) 25 1,000 unit PO BID 06/1702/15/25 History mcg (1,000 unit) tablet (Vitamin D3) mycophenolate mofetil 500 mg 500 mg PO BID 03/04/24 History tablet (CellCept) levothyroxine 100 mcg capsule 100 mcg PO QDAY 04/06/24 02/16/25 05:20 History ondansetron 4 mg disintegrating 4 mg PO Q8H PRN nausea and vomiting 04/06/24 Unknown History tablet Lactobacillus acidophilus 250 500 mmu cells PO DAILY 0 06/02/24 12/21/24 History million cell capsule (Probiotic Acidophilus) amitriptyline 50 mg tablet 100 mg PO QHS 07/07/2407/11 History carbidopa 25 mg-levodopa 100 mg 1 tab PO TID 10/11/24 02/15/25 18:00 History tablet (Sinemet) carbidopa 25 mg tablet 25 mg PO TID 11/08/24 18:00 History multivitamin (Daily Multi-Vitamin 1 tab PO DAILY 12/1902/15/25 History tablet) fludrocortisone 0.1 mg tablet 0.2 mg PO DAILY 12/29/24 02/16/25 05:20 History pantoprazole 20 mg tablet,delayed 20 mg PO QDAY #30 ta bs 01/22/25 02/16/25 05:20 Rx release ferrous sulfate 325 mg (65 mg 325 mg PO DAILY 02/12/25 02/15/25 History iron) tablet (Iron (ferrous sulfate)) fludrocortisone 0.1 mg tablet 0.1 mg PO QHS 02/12/25 1 History Allergy/AdvReac Type Severity Reaction Status Date / Time cetirizine (From yrte) Allergy Intermediate Rash Verified 02/16/25 06:14 erythromycin base AdvReac Intermediate Diarrhea Verified 02/16/25 06:14 azithromycin AdvReac Mild Diarrhea Verified 02/16/25 06:14 Family History Mother Thyroid disorder Hypertension Father Heart disease Hypertension COPD (chronic obstructive pulmonary disease) Surgical History History of hand surgery History of lithotripsy Hx of biopsy S/P laparoscopic appendectomy Hx of colonoscopy History [...] early satiety, excessive flatus, fecal incontinence, heartburn, hematemesis, hematochezia, hemorrhoids, loose stools, melena, nausea, odynophagia, rectal bleeding, tenesmus, vomiting or weight changes Vital Signs Vital Signs Vital Signs: 02/16/25 06:18 02/16/25 06:20 02/16/25 06:43 Temperature 97.4 F L 97.4 F L Temperature Source Temporal Pulse Rate 84 84 Respiratory Rate 16 16 Respiratory Pattern Normal Blood Pressure 103/63 103/63 Blood Pressure Mean 76 Blood Pressure Source Monitor Blood Pressure Position Semi-Fowlers Blood Pressure Location Right Arm Pulse Ox 97 97 Oxygen Delivery Method Room Air Weight Weight: 158 lb Body Mass Index (BMI) 26.2 Physical Exam Const alert, oriented x3, no apparent distress and healthy appearing General Appearance: cooperative GI normal to inspection, nondistended, normoactive bowel sounds, soft to palpation, non-tender and non-distended Percussion: normal to percussion Rectal [...] examined colon and lavage was attempted however this was not sufficient. She notes her stool was still brown prior to her colonoscopy. She has had 1 bowel movement since her colonoscopy. Patient continues with Trulance which helps with abdominal pain but she feels Linzess was better for the constipation. She has been taking the Trulance for over a month now. I advise she continue Trulance and do a fleets enema. Will consider switching back to Linzess or other a laxative [...] 240 mL PO Q10M 4,000 mL 0RF ] 02/16/25 0653 <Electronically signed by Aditya Cota DO> Cosigner Signature (if applicable): CC: Dr. Gonzalo Day MD; Aditya Cota DO~ Signed [facility] Work Phone: Progress note Author Hilary Soto [facility] Note Date/Time November 08, 2024 8:32 am [facility] [address] [place] [address] OFFICE VISIT Date of Service: 11/08/24 MR#: [id number] Acct: [id number] Name: EREN MERCHANT Rep #: [id number] : 1960 Provider: KAUSHAL Alas Age/Sex: 64/F Location: [facility] [place] Status: Signed Intake Vital Signs 06/06/24 14:36 Height 5 ft 5 in Intake Visit Reasons: 1 M FU Chief Complaint: abd pain [facility] Allergy (Intermediate, Verified 06/06/24 14:34) Rash erythromycin base Adverse Reaction (Intermediate, Verified 06/06/24 14:34) Diarrhea azithromycin Adverse Reaction (Mild, Verified 06/06/24 14:34) Diarrhea Medications ?Medication ?Instructions ?Recorded ?Confirmed ?Type aspirin 81 mg chewable tablet 81 mg PO DAILY@0800 06/1711/08/24 History cholecalciferol (vitamin D3) 25 1,000 unit PO BID 06/1710/11/24 History mcg (1,000 unit) tablet (Vitamin D3) geriatric cdoxvqpl-ccyn-rseg 1 ea PO DAILY 06/28/18 History (Complete Senior tablet) mycophenolate mofetil 500 mg 1,000 mg PO DAILY 11/08/24 History tablet (CellCept) levothyroxine 100 mcg [...] doesn't seem to be helping with constipation. [facility] Medical History History of steroid therapy Wears [...] Cosigner Signature: Date (if applicable) CC: ~ [facility] Work Phone: Progress note Author Hilary Soto [facility] Note Date/Time December 29, 2024 8: 23am [facility] [address] [place] [address] OFFICE VISIT Date of Service: 12/29/24 MR#: [id number] Acct: [id number] Name: EREN MERCHANT Rep #: [id number] : 1960 Provider: KAUSHAL Alas Age/Sex: 64/F Location: [facility] [place] Status: Signed Intake Vital Signs 12/22/24 12:21 Height 5 ft 5 in Intake Visit Reasons: ABORTED COLONOSCOPY -IMPACTED Chief Complaint: abd pain Allergies cetirizine (From [facility]) Allergy (Intermediate, Verified 12/22/24 12:18) Rash [...] Normal second portion of the duodenum. OV 07.07. Pt doing well today. Reviewed EGD results [...] daily, start colace 200 mg daily OV 6. Pt continues to have constipation while taking [...] Const General: cooperative, healthy appearing and comfortable [facility] Head: normal to inspection Eyes General: appearance [...] Cosigner Signature: Date (if applicable) CC: ~ [facility] Work Phone: Progress note Author Hilary Soto [facility] Note Date/Time March 02, 2025 8 :45am [facility] [address] [place] [address] OFFICE VISIT Date of Service: 03/02/25 MR#: [id number] Acct: [id number] Name: EREN MERCHANT Rep #: [id number] : 1960 Provider: KAUSHAL Alas Age/Sex: 64/F Location: [facility] [place] [facility] Status: Signed Intake Vital Signs 12/22/24 12:21 02/16/25 06:20 Height 5 ft 5 in 5 ft 5 in Intake Visit Reasons: Test Result/Abdominal pain Chief Complaint: Constipation Funeral Arranger Required: No Accompanied by: Self Is patient in pain?: No Allergies cetirizine (From Zyrtec) Allergy (Intermediate, Verified 03/02/25 08:27) Rash erythromycin base Adverse Reaction (Intermediate, Verified 03/02/25 08:27) Diarrhea azithromycin Adverse Reaction (Mild, Verified 03/02/25 08:27) Diarrhea Medications ?Medication ?Instructions ?Recorded ?Confirmed ?Type aspirin 81 mg chewable tablet 81 mg PO DAILY@0800 06/1703/02/25 History cholecalciferol (vitamin D3) 25 1,000 unit PO BID 06/1703/02/25 History mcg (1,000 unit) tablet (Vitamin D3) mycophenolate mofetil 500 mg 500 mg PO BID 03/04/24 History tablet (CellCept) levothyroxine 100 mcg capsule 100 mcg PO QDAY 04/06/24 03/02/25 History ondansetron 4 mg disintegrating 4 mg PO Q8H PRN nausea and vomiting 04/06/24 03/02/25 History tablet Lactobacillus acidophilus 250 500 mmu cells PO DAILY 0 06/02/24 03/02/25 History million cell capsule (Probiotic Acidophilus) amitriptyline 50 mg tablet 100 mg PO QHS 07/07/2402/14 History carbidopa 25 mg-levodopa 100 mg 1 tab PO TID 10/11/24 03/02/25 History tablet (Sinemet) carbidopa 25 mg tablet 25 mg PO TID 11/08/24 History multivitamin (Daily Multi-Vitamin 1 tab PO DAILY 12/1903/02/25 History tablet) fludrocortisone 0.1 mg tablet 0.2 mg PO DAILY 12/29/24 03/02/25 History ferrous sulfate 325 mg (65 mg 325 mg PO DAILY 02/12/25 03/02/25 History iron) tablet (Iron (ferrous sulfate)) fludrocortisone 0.1 mg tablet 0.1 mg PO QHS 02/12/25 1 History lubiprostone 24 mcg capsule 24 mcg PO BID #30 caps 03/02/25 Rx pantoprazole 20 mg tablet,delayed 20 mg PO QDAY #30 ta bs 03/02/25 03/02/25 Rx release Have you fallen in the past year?: No PFSH Medical History Loss of hearing Walker as ambulation aid Low iron Injury of head and neck History of hiatal hernia Gastric reflux Back pain Parkinson's disease Orthostatic hypotension History of steroid therapy Wears glasses Post-menopausal Cancer Arthritis History of renal disease DVT (deep venous thrombosis) Easy bruising Syncope Dietary restriction History of diverticulitis Interstitial emphysema of lung Non-smoker History of edema Overactive bladder Intramural leiomyoma of uterus Esophageal dysmotility Abnormal Pap smear of vagina and vaginal HPV Positive P-ANCA titer Hypothyroid Surgical History History of hand surgery History of lithotripsy Hx of biopsy S/P laparoscopic appendectomy Hx of colonoscopy History [...] holidays/special occasions only HPI HPI Chief Complaint: Constipation Details: EREN MERCHANT, is a 64 F [...] pain, nausea vomiting, or lack of appetite. Colonoscopy 02/16/2025 - Preparation of the colon was poor. - Stool in the entire examined colon. - No specimens collected OV 03/02/25 patient here today to follow-up after failed colonoscopy due to stool in the colon. Patient did a low fiber diet 3 to 5 days beforehand and clear liquid 2 days before. She started her GoLytely prep 2 hours late. She did have diarrhea but in the morning she was still having brown stools. She continues to have constipation with a bowel movement maybe once a week. She is not taking the Trulance. She was recently in the hospital and started on Colace. ROS Const Constitutional: Positive for fatigue; No fever(s) or weight change ENT ENT: Positive for difficulty swallowing Gastro GI: Positive for constipation, heartburn and difficulty swallowing; No abdominal pain, belching, bloating, change in bowel habits, change in stool character, coffee ground emesis, cramping, diarrhea, feeling full early, excessive flatus, incontinent of stools, Vomiting blood/hematemesis, Blood in stool, loose stools, Black,tarry stools, nausea/dyspepsia, pain with swallowing,vomiting or other Musc Musculoskeletal: Positive for joint pain, back pain and Arthritis Skin Skin: No yellowing of the eye or itchy eyes Psych Psychiatric: No anxiety and No depression Endo Endocrine: Positive for fatigue; No weight change Aller/Imm Allergy/Immunologic: No itchy eyes Danilo/Lymp Hematologic/Lymphatic: Positive for easy bruising; No easy bleeding Exam Const General: cooperative and comfortable Nutritional Appearance: average body habitus Orientation: alert [facility] Head: normal to inspection Ears: hearing grossly normal bilaterally Eyes General: appearance normal, both eyes and [...] Constipation: Status: Acute Plan: Eren is a 64-year-old female patient here today after failed colonoscopy due tostool in the colon. This is patient's second failed colonoscopy due to poor bowel preparation. Patient did GoLytely prep but started at 2 hours late. Prior to the prep she was on clear liquid diets for 2 days and had a low fiber diet 5 days before. She continues to have constipation. Recommended starting Amitiza 24 mcg twice a day and Colace. Once patient is having more regular bowel movements we will schedule her for colonoscopy with split regimen prep. Patient having intermittent GERD symptoms pantoprazole refilled. - Repeat colonoscopy once constipation is better controlled - Start Amitiza 24 mcg twice a day - Once colonoscopy is scheduled will do split regimen prep and longer clear liquid diet - Follow-up in 1 month (2) GERD (gastroesophageal reflux disease): Status: Chronic Medications: New lubiprostone 24 mcg PO BID 30 caps 2RF Refilled pantoprazole 20 mg PO QDAY 30 tabs 2RF Coding Level of Care Code Off vis,est,level 3 Diagnoses Constipation K59.00 GERD (gastroesophageal reflux disease) K21.9 Clinical Quality Measures Falls Risk Screening/Assistive Devices Have you fallen in the past year?: No 03/02/25 0856 <Electronically signed by Hilary EASLEY> Date _ Hilary EASLEY Cosigner Signature: Date (if applicable) CC: ~ [facility] Work Phone: reason for referral (narrative)* Diagnostic Procedure Only (Routine) - Authorized Specialty Diagnoses / Procedures Referred By Kim cano Referred To Contact US IMAGING Diagnoses Cystocele, midline Urinary urgency Urinary frequency Procedures US FEMALE PELVIS TRANSVAG US TRANSVAGINAL Charis Lopez APRN.CNM [address] [place] [place] [address] Us Imaging Referral ID Status Reason Start Date Expiration Date Visits Requested Visits Authorized [id number] Authorized Auto-Generat ed Referral 11/26/2021 12/26/2022 1 1 * Consult, Test, Treat (Routine) - Authorized Specialty Diagnoses / Procedures Referred By Kim cano Referred To Contact Diagnoses Cystocele, midline Urinary urgency Urinary frequency Procedures CONSULT TO URO GYNECOLOGY OFFICE/OUTPATIENT [facility] 60-74 MINUTES Charis Lopez APRN.CNJavier [address] [place] [place] [address] Referral ID Status Reason Start Date Expiration Date Visits Requested Visits Authorized [id number] Authorized PCP Requested Referral Auto-Generate d Referral [...] Charis Lopez APRN.CNM [address] [place] [place] [address] Br Imaging [address] [place] [address] Referral ID Status Reason Start Date Expiration Date Visits Requested Visits Authorized [id number] Pending Review Auto-Generat ed Referral 11/26/2021 12/26/[address] [facility] for referral (narrative)* Diagnostic Procedure Only (Routine) - Closed Specialty Diagnoses / Procedures Referred By Kim t Referred To Contact US IMAGING Diagnoses Cystocele, midline Urinary urgency Urinary frequency Procedures US FEMALE PELVIS TRANSVAG US TRANSVAGINAL Charis Lopez APRN.CNM [address] [place] [address] Us Imaging Referral ID Status Reason Start Date Expiration Date V isits Requested Visits Authorized [id number] Closed Auto-Generate d Referral 11/26/2021 12/26/[address] [facility] for referral (narrative)* Outpatient Procedure (Routine) - Pending Review Specialty Diagnoses / Procedures Referred By Contac t Referred To Contact [facility] Diagnoses Urinary urgency Urinary frequency Overactive bladder Procedures URODYNAMICS WHI COMPLX CYSTOMETRO W/VOID PRESS&URETHRAL PROFILE John Mg MD [address] [place] [address] [facility] [address] [place] [address] Referral ID Status Reason Start Date Expiration Date Visits Requested Visits Authorized [id number] Pending Review Auto-Generat ed Referral 2 03/16/[address] [facility] for referral (narrative)* Diagnostic Procedure Only (Routine) - Pending Review Specialty Diagnoses / Procedures Referred By Contac t Referred To Contact MOLECULAR & FUNCTIONAL IMAGING Diagnoses Hydronephrosis with ureteropelvic junction (UPJ) obstruction Procedures NM RENAL FLOW/FXN W PHARM KIDNEY IMG MORPHOLOGY VASCULAR FLOW 1 W/RX Mathew Yang Jr., MD [address] [place] [address] Molecular & Functional Imaging [address] [id number] Referral ID Status Reason Start Date Expiration Date Visits Requested Visits Authorized [id number] Pending Review Auto-Generat ed Referral 08/11/2022 09/10/2023 1 1 * Diagnostic Procedure Only (Routine) - Closed Specialty Diagnoses / Procedures [facility] Referred To Contact XR IMAGING Diagnoses Kidney stone Procedures XR ABDOMEN 1V SUPINE RADIOLOGIC EXAM ABDOMEN 1 VIEW Mathew Yang Jr., MD [address] [place], [place] [id number] Xr Imaging Referral ID Status Reason Start Date Expiration Date V isits Requested Visits Authorized [id number] Closed Auto-Generate d Referral 08/11/2022 09/10/[address] [facility] for referral (narrative)* Diagnostic Procedure Only (Routine) - Closed Specialty Diagnoses / Procedures Referred By Kim t Referred To Contact MOLECULAR & FUNCTIONAL IMAGING Diagnoses Hydronephrosis with ureteropelvic junction (UPJ) obstruction Procedures NM RENAL FLOW/FXN W PHARM KIDNEY IMG MORPHOLOGY VASCULAR FLOW 1 W/RX Mathew Yang Jr., MD [address] [place] [address] Molecular & Functional Imaging [address] [place] [address] Referral ID Status Reason Start Date Expiration Date V isits Requested Visits Authorized [id number] Closed Auto-Generate d Referral 08/11/2022 09/10/[address] [facility] for referral (narrative)* Diagnostic Procedure Only (Routine) - Pending Review Specialty Diagnoses / [facility] Referred To Contact XR IMAGING Diagnoses Kidney stone Procedures XR ABDOMEN 1V SUPINE RADIOLOGIC EXAM ABDOMEN 1 VIEW Mathew Yang Jr., MD [address] [place] [address] Xr Imaging Referral ID Status Reason Start Date Expiration Date Visits Requested Visits Authorized [id number] Pending Review Auto-Generat ed Referral 11/04/2023 12/03/[address] [facility] for referral (narrative)* Diagnostic Procedure Only (Routine) - Closed Specialty Diagnoses / Procedures Referred By Contac t Referred To Contact BR IMAGING Diagnoses Encounter for screening mammogram for breast cancer Procedures CHYNA SCREENING W JENN SCREENING DIGITAL BREAST TOMOSYNTHESIS BI SCREENING MAMMOGRAPHY BI 2-VIEW BREAST INC Charis Phillips APRN.CNM [address] [place] [address] Br Imaging [address] [place] [address] Referral ID Status Reason Start Date Expiration Date V isits Requested Visits Authorized [id number] Closed Auto-Generate d Referral 11/26/2021 12/26/[address] [facility] for referral (narrative)* Diagnostic Procedure Only (Routine) - Pending Review Specialty Diagnoses / Procedures Referred By Kim cano Referred To Contact BR IMAGING Diagnoses Encounter for screening mammogram for malignant neoplasm of breast Procedures CHYNA SCREENING SCREENING MAMMOGRAPHY BI 2-VIEW BREAST INC Priyanka Lino MD [address] [place] [address] Br Imaging [address] [place] [address] Referral ID Status Reason Start Date Expiration Date Visits Requested Visits Authorized [id number] Pending Review Auto-Generat ed Referral 06/22/2023 07/21/[address] [facility] for referral (narrative)* Diagnostic Procedure Only (Routine) - Closed Specialty Diagnoses / Procedures Referred By Kim cano Referred To Contact BR IMAGING Diagnoses Encounter for screening mammogram for malignant neoplasm of breast Procedures CHYNA SCREENING W JENN SCREENING DIGITAL BREAST TOMOSYNTHESIS BI SCREENING MAMMOGRAPHY BI 2-VIEW BREAST INC Priyanka Lino MD [address] [place] [address] Br Imaging [address] [place] [address] Referral ID Status Reason Start Date Expiration Date V isits Requested Visits Authorized [id number] Closed Auto-Generate d Referral 08/09/2023 09/04/[address] [facility] for referral (narrative)* Diagnostic Procedure Only (Routine) - Pending Review Specialty Diagnoses / Procedures Referred By Contac t Referred To Contact XR IMAGING Diagnoses Kidney stone Procedures XR ABDOMEN 1V SUPINE RADIOLOGIC EXAM ABDOMEN 1 [place] [address] [place] [id number] [place] [address] Referral ID Status Reason Start Date Expiration Date Visits Requested Visits Authorized [id number] Pending Review Auto-Generat ed Referral 12/23/2023 12/21/[address] [facility] for referral (narrative)* Diagnostic Procedure Only (Routine) - Authorized Specialty Diagnoses / Procedures Referred By Contac t Referred To Contact BR IMAGING Diagnoses Encounter for screening mammogram for breast cancer Procedures CHYNA SCREENING W JENN SCREENING DIGITAL BREAST TOMOSYNTHESIS BI SCREENING MAMMOGRAPHY BI 2-VIEW BREAST INC Charis Phillips APRN.CNM [address] [place] [address] Br Imaging [address] [place] [address] Referral ID Status Reason Start Date Expiration Date Visits Requested Visits Authorized [id number] Authorized Auto-Generat ed Referral 11/29/2023 12/28/20[address] [facility] for referral (narrative)* Diagnostic Procedure Only (Routine) - Authorized Specialty Diagnoses / Procedures Referred By Contac t Referred To Contact XR IMAGING Diagnoses Kidney stone Procedures XR ABDOMEN 1V SUPINE RADIOLOGIC EXAM ABDOMEN 1 [place] [address] [place] [address] [place] [address] Referral ID Status Reason Start Date Expiration Date Visits Requested Visits Authorized [id number] Authorized Auto-Generat ed Referral 12/20/2024 01/19/[address] [facility] for referral (narrative)* Diagnostic Procedure Only (Routine) - Closed Specialty Diagnoses / Procedures Referred By Contac t Referred To Contact XR IMAGING Diagnoses Kidney stone Procedures XR ABDOMEN 1V SUPINE RADIOLOGIC EXAM ABDOMEN 1 VIEW Mathew Yang Jr., MD [facility] [place] [address] [place] [address] Referral ID Status Reason Start Date Expiration Date V isits Requested Visits Authorized [id number] Closed Auto-Generate d Referral 08/11/2022 09/10/[address] [facility] for referral (narrative)* Diagnostic Procedure Only (Routine) - Closed Specialty Diagnoses / Procedures Referred By Contac t Referred To Contact XR IMAGING Diagnoses Acute pain of both knees Procedures XR KNEE GENERAL 4V AP BOTH/PA BOTH/LAT/MERC BILATERAL RADIOLOGIC EXAM KNEE COMPLETE 4/MORE VIEWS Jacqueline Valadez APRN.CNP [address] [place] [address] [place] [address] Referral ID Status Reason Start Date Expiration Date V isits Requested Visits Authorized [id number] Closed Auto-Generate d Referral 05/24/2024 06/23/2025 1 1 [facility] for referral (narrative)* Diagnostic Procedure Only (Routine) - New Request Specialty Diagnoses / Procedures Referred By Contac t Referred To Contact XR IMAGING Diagnoses Right hand pain Procedures XR HAND GENERAL 3V PA/LAT/OBL RIGHT RADEX HAND MINIMUM 3 VIEWS Raul Juan MD [address] [facility] [place] [address] [place] [address] Referral ID Status Reason Start Date Expiration Date Visits Requested Visits Authorized [id number] New Request Auto-Generat ed Referral 06/14/2024 07/14/[address] [facility] for referral (narrative)* Outpatient Procedure (Routine) - Authorized Specialty Diagnoses / Procedures Referred By Contac t Referred To [facility] Diagnoses NSIP (nonspecific interstitial pneumonitis) (HCC) Procedures LUNG DIFFUSION CAPACITY (DLCO) DIFFUSING CAPACITY Becca Mir APRN.CNP [address] [address] [place] [id number] Referral ID Status Reason Start Date Expiration Date Visits Requested Visits Authorized [id number] Authorized Auto-Generat ed Referral 06/20/2024 07/20/2025 1 1 * Outpatient Procedure (Routine) - Pending Review Specialty Diagnoses / Procedures Referred By Contac t Referred To Contact [facility] Diagnoses NSIP (nonspecific interstitial pneumonitis) (HCC) Procedures LUNG VOLUMES Becca Mir APRN.CNP [address] [facility] [place] [address] [address] Referral ID Status Reason Start Date Expiration Date Visits Requested Visits Authorized [id number] Pending Review Auto-Generat ed Referral 06/20/2024 07/20/2025 1 1 * Outpatient Procedure (Routine) - Authorized Specialty Diagnoses / Procedures Referred By Contac t Referred To [facility] Diagnoses NSIP (nonspecific interstitial pneumonitis) (HCC) Procedures SPIROMETRY BASELINE ONLY SPMTRY W/VC EXPIRATORY ANYA W/WO MXML VOL VNTJ Becca Mir APRN.SAMIR [address] [place] [address] [address] [place] [id number] [place] [address] Referral ID Status Reason Start Date Expiration Date Visits Requested Visits Authorized [id number] Authorized Auto-Generat ed Referral 06/20/2024 07/20/[address] [facility] for referral (narrative)No reason for referral information availableDekalb [facility] Work Phone: Reason for visit Narrative* Outpatient Procedure (Routine) - Closed Specialty Diagnoses / Procedures Referred By Kim cano Referred To Contact [facility] Diagnoses Urinary urgency Urinary frequency Overactive bladder Procedures URODYNAMICS [facility] COMPLX CYSTOMETRO W/VOID PRESS&URETHRAL PROFILE John Mg MD [address] [place] [address] [address] Referral ID Status Reason Start Date Expiration Date V isits Requested Visits Authorized [id number] Closed Auto-Generate d Referral 03/16/2022 03/16/[address] [facility] for visit Narrative* Diagnostic Procedure Only (Routine) - Closed Specialty Diagnoses / Procedures Referred By Kim cano Referred To Contact MOLECULAR [facility] FUNCTIONAL IMAGING Diagnoses Hydronephrosis with ureteropelvic junction (UPJ) obstruction Procedures NM RENAL FLOW/FXN W PHARM KIDNEY IMG MORPHOLOGY VASCULAR FLOW 1 W/RX Mtahew Yang Jr., MD [address] [place] [address] Molecular & Functional Imaging [address] [id number] Referral ID Status Reason Start Date Expiration Date V isits Requested Visits Authorized [id number] Closed Auto-Generate d Referral 08/11/2022 09/10/[address] [facility] for visit Narrative* Diagnostic Procedure Only (Routine) - Closed Specialty Diagnoses / Procedures Referred By Kim cano Referred To Contact BR IMAGING Diagnoses Encounter for screening mammogram for breast cancer Procedures CHYNA SCREENING W JENN SCREENING DIGITAL BREAST TOMOSYNTHESIS BI SCREENING MAMMOGRAPHY BI 2-VIEW BREAST INC Charis Phillips APRN.UBALDO [address] [place] [address] Br Imaging [address] [place] [address] Referral ID Status Reason Start Date Expiration Date V isits Requested Visits Authorized [id number] Closed Auto-Generate d Referral 11/26/2021 12/26/[address] [facility] for visit Narrative* Diagnostic Procedure Only (Routine) - Closed Specialty Diagnoses / Procedures Referred By Contac t Referred To Contact BR IMAGING Diagnoses Encounter for screening mammogram for malignant neoplasm of breast Procedures CHYNA SCREENING W JENN SCREENING DIGITAL BREAST TOMOSYNTHESIS BI SCREENING MAMMOGRAPHY BI 2-VIEW BREAST INC Priyanka Lino MD [address] [place] [address] Br Imaging [address] [place] [address] Referral ID Status Reason Start Date Expiration Date V isits Requested Visits Authorized [id number] Closed Auto-Generate d Referral 08/09/2023 09/04/[address] [facility] for visit Narrative* Diagnostic Procedure Only (Routine) - Closed Specialty Diagnoses / Procedures Referred By Contac t Referred To Contact XR IMAGING Diagnoses Kidney stone Procedures XR ABDOMEN 1V SUPINE RADIOLOGIC EXAM ABDOMEN 1 VIEW Mathew Yang Jr., MD [address] [place] [address] [place] [address] Referral ID Status Reason Start Date Expiration Date V isits Requested Visits Authorized [id number] Closed Auto-Generate d Referral 11/04/2023 12/03/[address] [facility] for visit Narrative* Diagnostic Procedure Only (Routine) - Closed Specialty Diagnoses / Procedures Referred By Contac t Referred To Contact XR IMAGING Diagnoses Kidney stone Procedures XR ABDOMEN 1V SUPINE RADIOLOGIC EXAM ABDOMEN 1 VIEW Mathew Yang Jr., MD [address] [place] [address] [place] [address] Referral ID Status Reason Start Date Expiration Date V isits Requested Visits Authorized [id number] Closed Auto-Generate d Referral 11/25/2023 12/24/[address] [facility] for visit Narrative* Diagnostic Procedure Only (Routine) - Closed Specialty Diagnoses / Procedures Referred By [facility] Referred To Contact XR IMAGING Diagnoses Kidney stone Procedures XR ABDOMEN 1V SUPINE RADIOLOGIC EXAM ABDOMEN 1 VIEW Mathew Yang Jr., MD [address] [place] [address] [place] [address] Referral ID Status Reason Start Date Expiration Date V isits Requested Visits Authorized [id number] Closed Auto-Generate d Referral 08/11/2022 09/10/[address] [facility] for visit Narrative* Auth/Cert (Routine) Specialty Diagnoses / Procedures Referred By [facility] Referred To Contact Diagnoses Pyelonephritis pyelonephritis Procedures n12 Maurilio Groves MD [address] [place] [address] Phone: tel: fax: [facility] Surgical Progressive Care Unit PCU H[address] [place] [address] Phone: tel: Referral ID Status Reason Start Date Expiration Date Visits Re quested Visits Authorized [id number] [address] [facility] for visit Narrative* Auth/Cert (Routine) Specialty Diagnoses / [facility] Referred To Contact Diagnoses Calculus of ureter Procedures LA CYSTO BLADDER W/URETERAL CATHETERIZATION LA CYSTO W/URETEROSCOPY W/LITHOTRIPSY LA CYSTO W/INSERT URETERAL STENT CYSTOSCOPY AND PYELOGRAM BILATERAL URETEROSCOPY, HOLMIUM LASER LITHOTRIPSY BILATERAL URETERAL STENT CHANGE Katherine Bowen MD [address] [place] [address] Phone: tel: fax: Referral ID Status Reason Start Date Expiration Date Visits Re quested Visits Authorized [id number] 03/07/[address] [facility] for visit Narrative* Diagnostic Procedure Only (Routine) - Closed Specialty Diagnoses / Procedures Referred By Kim t Referred To Contact XR IMAGING Diagnoses Acute pain of both knees Procedures XR KNEE GENERAL 4V AP BOTH/PA BOTH/LAT/MERC BILATERAL RADIOLOGIC EXAM KNEE COMPLETE 4/MORE VIEWS Jacqueline Valadez, 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 [address] [place] [address] [place] [address] Referral ID Status Reason Start Date Expiration Date V isits Requested Visits Authorized [id number] Closed Auto-Generate d Referral 05/24/2024 06/23/[address] [facility] for visit Narrative* Diagnostic Procedure Only (Routine) - Closed Specialty Diagnoses / Procedures Referred By Contac t Referred To Contact XR IMAGING Diagnoses Right hand pain Procedures XR HAND GENERAL 3V PA/LAT/OBL RIGHT RADEX HAND MINIMUM 3 VIEWS Raul Juan MD [address] [place] [address] Phone: tel: fax: [place] [address] Referral ID Status Reason Start Date Expiration Date V isits Requested Visits Authorized [id number] Closed Auto-Generate d Referral 06/14/2024 07/14/[address] [facility] for visit Narrative* Diagnostic Procedure Only (Routine) - Closed Specialty Diagnoses / Procedures Referred By Contac t Referred To Contact BR IMAGING Diagnoses Encounter for screening mammogram for breast cancer Procedures CHYNA SCREENING W JENN SCREENING DIGITAL BREAST TOMOSYNTHESIS BI SCREENING MAMMOGRAPHY BI 2-VIEW BREAST INC Charis Phillips, [facility] [address] [place] [address] Phone: tel: fax: BR IMAGING [address] [place] [address] Referral ID Status Reason Start Date Expiration Date V isits Requested Visits Authorized [id number] Closed Auto-Generate d Referral 11/29/2023 12/28/[address] [facility] for visit Narrative* Diagnostic Procedure Only (Urgent) - Closed Specialty Diagnoses / Procedures Referred By Contac t Referred To Contact XR IMAGING Diagnoses Injury of head, initial encounter Orbital pain, left Procedures XR FACIAL BONES 3V AP/LAT/DE JESUS RADEX FACIAL BONES COMPLETE MINIMUM 3 VIEWS Jasmyne Day MD [address] [place] [address] Phone: tel: fax: [place] [address] Referral ID Status Reason Start Date Expiration Date V isits Requested Visits Authorized [id number] Closed Auto-Generate d Referral 09/11/2024 10/11/2025 1 1 [facility] MRI/CT (Routine) - Closed Specialty Diagnoses / Procedures Referred By Kim t Referred To Contact CT IMAGING Diagnoses Interstitial pulmonary disease (HCC) Procedures CT CHEST WO IVCON DIAGNOSTIC COMPUTED TOMOGRAPHY THORAX W/O Karen Werner MD [address] [place] [address] Phone: tel: fax: [place] [address] Referral ID Status Reason Start Date Expiration Date V isits Requested Visits Authorized [id number] Closed Auto-Generate d Referral 01/29/2025 11/25/2025 1 1 [facility] Advance Directives No Advanced Directives Records FoundDocuments on File Type Date Recorded Patient Waste Examiner Expl anation Advance Directive(s) Advance Directive(s) 02/17/2021 [...] Documents on File Type Date Recorded Patient Waste Examiner Expl anation Advance Directive(s) Advance Directive(s) 02/17/2021 [...] Date/ Time Advance Directives No September 05 7:49am Advance Directive Response Recorded Date/ Time Do you have a Healthcare Power of Ballistics Tester? No December 19, 2024 12:42pm Advance Directives No September 05 015 7:49am Advance Directive Response Recorded Date/ Time Do you have a Healthcare Power of Ballistics Tester? Yes January 21, 2025 8:12pm Name of Medical Power of Ballistics Tester marcello Peoples January 21, 2025 8:12pm Do you have a Healthcare Power of Ballistics Tester? No December 19, 2024 12:42pm Advance Directives No September 05 015 7:49am Date Activated Date Inactivated Comments 01/22/2025 8:56 AM 01/26/2025 2:29 PM Date Activated Date Inactivated Comments 03/04/2024 2:33 PM 03/09/2024 8:00 PM Advance Directive Response Recorded Date/ Time Do you have a Healthcare Power of Ballistics Tester? Yes January 21, 2025 8:12pm Name of Medical Power of Ballistics Tester marcello Peoples January 21, 2025 8:12pm Do you have a Healthcare Power of Ballistics Tester? No December 19, 2024 12:42pm Do you have a Healthcare Power of Ballistics Tester? No February 12, 2025 1:10pm Advance Directives No September 05 015 7:49am Reason for Referral Specialty Diagnoses / Procedures Referred By Kim t Referred To Contact CT IMAGING Diagnoses Interstitial pulmonary disease (HCC) Procedures CT CHEST WO IVCON DIAGNOSTIC COMPUTED TOMOGRAPHY THORAX W/O CNTRST Sam Cuenca MD [address] [place] [address] Ct Imaging Referral ID Status Reason Start Date Expiration Date Visits Requested Visits Authorized [id number] Pending Review Auto-Generat ed Referral 02/12/2022 09/11/2022 1 1 Specialty Diagnoses / Procedures Referred By Kim t Referred To Contact CT IMAGING Diagnoses Lung nodules Procedures CT CHEST WO IVCON DIAGNOSTIC COMPUTED TOMOGRAPHY THORAX W/O CNTRST Karen Alcantara MD [address] [place] [address] Ct Imaging Referral ID Status Reason Start Date Expiration Date Visits Requested Visits Authorized [id number] Pending Review Auto-Generat ed Referral 2 03/18/2023 1 1 Specialty Diagnoses / Procedures Referred By Contac t Referred To Contact CT IMAGING Diagnoses Interstitial pulmonary disease (HCC) NSIP (nonspecific interstitial pneumonia) (HCC) Procedures CT CHEST WO IVCON DIAGNOSTIC COMPUTED TOMOGRAPHY THORAX W/O Karen Werner MD [address] [facility] [address] Ct Imaging Referral ID Status Reason Start Date Expiration Date Visits Requested Visits Authorized [id number] Pending Review Auto-Generat ed Referral 10/16/2022 05/17/2023 1 1 Specialty Diagnoses / Procedures Referred By Contac t Referred To Contact Urology Diagnoses 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 Procedures CONSULT TO UROLOGY OFFICE/OUTPATIENT [facility] MDM 60-74 MINUTES John Mg MD [address] [id number] Referral ID Status Reason Start Date Expiration Date Visits Requested Visits Authorized [id number] Authorized PCP Requested Referral 06/17/2022 06/17/2023 1 1 Specialty Diagnoses / Procedures Referred By Contac t Referred To Contact CT IMAGING Diagnoses Gross hematuria Procedures CT UROGRAM WO/W IVCON CT ABD & PELVIS W/O CONTRST 1+ BODY REGNS John Mg MD [address] [place] [address] Ct Imaging [place] [address] Referral ID Status Reason Start Date Expiration Date V isits Requested Visits Authorized [id number] Closed Auto-Generate d Referral 05/22/2022 07/31/2022 1 1 Specialty Diagnoses / Procedures Referred By Contac t Referred To Contact CT IMAGING Diagnoses Interstitial pulmonary disease (HCC) NSIP (nonspecific interstitial pneumonia) (HCC) Procedures CT CHEST WO IVCON DIAGNOSTIC COMPUTED TOMOGRAPHY THORAX W/O Karen Werner MD [address] [place] [address] Ct Imaging [facility]95 Referral ID Status Reason Start Date Expiration Date V isits Requested Visits Authorized [id number] Closed Auto-Generate d Referral 10/13/2022 12/12/2022 1 1 Specialty Diagnoses / Procedures Referred By Contac t Referred To Contact CT IMAGING Diagnoses Lung nodules Procedures CT CHEST WO IVCON DIAGNOSTIC COMPUTED TOMOGRAPHY THORAX W/O Karen Werner MD [address] [facility] [place] [address] [place] [address] Referral ID Status Reason Start Date Expiration Date V isits Requested Visits Authorized [id number] Closed Auto-Generate d Referral 2022 05/25/2022 1 1 Specialty Diagnoses / Procedures Referred By Contac t Referred To Contact CT IMAGING Diagnoses Interstitial pulmonary disease (HCC) Procedures CT CHEST WO IVCON DIAGNOSTIC COMPUTED TOMOGRAPHY THORAX W/O Karen Werner MD [address] [place] [address] [place] [address] Referral ID Status Reason Start Date Expiration Date Visits Requested Visits Authorized [id number] Authorized Auto-Generat ed Referral 11/01/2023 10/15/2024 1 1 Specialty Diagnoses / Procedures Referred By Contac t Referred To Contact [facility] Diagnoses Overactive bladder Procedures CONSULT TO PHYSICAL THERAPY PHYSICAL THERAPY EVALUATION [facility] 45 MINS Tariq Brooks, 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 [address] [place] [address] x[facility] [address] [address] Referral ID Status Reason Start Date Expiration Date Visits Requested Visits Authorized [id number] Pending Review Auto-Generat ed Referral 10/07/2023 10/06/2024 1 1 Specialty Diagnoses / Procedures Referred By Contac t Referred To Contact Neurology Diagnoses Tremor Procedures CONSULT TO NEUROLOGY OFFICE/OUTPATIENT [facility] 60 MINUTES Jacqueline [place]z, 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 [address] [place] [address] Referral ID Status Reason Start Date Expiration Date Visits Requested Visits Authorized [id number] Authorized PCP Requested Referral 10/14/2023 10/13/2024 1 1 Specialty Diagnoses / Procedures Referred By Contac t Referred To Contact Diagnoses Dyskinesia, tardive Procedures PROVIDER ORDERED FOLLOW UP OFFICE/OUTPATIENT [facility] 60 MINUTES Bogdan Roberts MD [address] [place] [address] Referral ID Status Reason Start Date Expiration Date Visits Requested Visits Authorized [id number] Authorized PCP Requested Referral 01/13/2024 04/12/2024 1 1 Referral ID Status Reason Start Date Expiration Date Visits Requested Visits Authorized [id number] Authorized PCP Requested Referral 04/12/2024 1 1 Referral ID Status Reason Start Date Expiration Date Visits Requested Visits Authorized [id number] Authorized Auto-Generat ed Referral 06/12/2024 05/17/2025 1 [...] 2024 9:53a m GERD (gastroesophageal reflux disease) ay 2024 9:53am Abdominal pain November 08, [...] 2024 9:53a m GERD (gastroesophageal reflux disease) [facility] 2024 9:53am Abdominal pain November 08, 2024 [...] 28am VAG BLEED January 21, 2025 7:25pm Chief Complaint Admit Date 1 M FU November 08, 2024 7:46 am ABORTED COLONOSCOPY -IMPACTED December 7:52am EORDER December 29, 2024 8: 28am VAG BLEED January 21, 2025 7:25pm Reason for Visit Admit Date Abdominal pain November 08, 2024 7:46 am Constipation November 08, 2024 7:46 am Abdominal pain December 22, 2024 11: 52am Constipation December 22, 2024 11: 52am Irritable bowel syndrome with constipati on December 22, 2024 11:52am Constipation December 29, 2024 7: 52am Irritable bowel syndrome with constipati on December 29, 2024 7:52am Abdominal pain February 16, 2025 5: 53am Constipation February 16, 2025 5: 53am Irritable bowel syndrome with constipati on February 16, 2025 5:53am Chief Complaint Admit Date ABORTED COLONOSCOPY -IMPACTED December 7:52am EORDER December 29, 2024 8: 28am VAG BLEED January 21, 2025 7:25pm Test Result/Abdominal pain March 02, 2025 8:22am Reason for Visit Admit Date Abdominal pain December 22, 2024 11: 52am Constipation December 22, 2024 11: 52am Irritable bowel syndrome with constipati on December 22, 2024 11:52am Constipation December 29, 2024 7: 52am Irritable bowel syndrome with constipati on December 29, 2024 7:52am Abdominal pain February 16, 2025 5: 53am Constipation February 16, 2025 5: 53am Irritable bowel syndrome with constipati on February 16, 2025 5:53am Constipation March 02, 2025 8 :22am GERD (gastroesophageal reflux disease) O ctober 2024 8:22am Additional Source Comments Source Comments (unrecognize d section and content) In the event this informatio n is protected by the Federal Confidentiality of Alcohol and Drug Abuse Patient Records regulations: The Federal rules restrict any use of the information to criminally investigate or prosecute any alcohol or drug abuse patient.[facility] the event this information is protected by the Federal Confidentiality of Alcohol and Drug Abuse Patient Records regulations: The Federal rules restrict any use of the information to criminally investigate or prosecute any alcohol or drug abuse patient.[facility] the event this information is protected by the Federal Confidentiality of Alcohol and Drug Abuse Patient Records regulations: The Federal rules restrict any use of the information to criminally investigate or prosecute any alcohol or drug abuse patient.[facility] the event this information is protected by the Federal Confidentiality of Alcohol and Drug Abuse Patient Records regulations: The Federal rules restrict any use of the information to criminally investigate or prosecute any alcohol or drug abuse patient.[facility] the event this information is protected by the Federal Confidentiality of Alcohol and Drug Abuse Patient Records regulations: The Federal rules restrict any use of the information to criminally investigate or prosecute any alcohol or drug abuse patient.[facility] the event this information is protected by the Federal Confidentiality of Alcohol and Drug Abuse Patient Records regulations: The Federal rules restrict any use of the information to criminally investigate or prosecute any alcohol or drug abuse patient.[facility] the event this information is protected by the Federal Confidentiality of Alcohol and Drug Abuse Patient Records regulations: The Federal rules restrict any use of the information to criminally investigate or prosecute any alcohol or drug abuse patient.[facility] the event this information is protected by the Federal Confidentiality of Alcohol and Drug Abuse Patient Records regulations: The Federal rules restrict any use of the information to criminally investigate or prosecute any alcohol or drug abuse patient.[facility] the event this information is protected by the Federal Confidentiality of Alcohol and Drug Abuse Patient Records regulations: The Federal rules restrict any use of the information to criminally investigate or prosecute any alcohol or drug abuse patient.[facility] the event this information is protected by the Federal Confidentiality of Alcohol and Drug Abuse Patient Records regulations: The Federal rules restrict any use of the information to criminally investigate or prosecute any alcohol or drug abuse patient.[facility] the event this information is protected by the Federal Confidentiality of Alcohol and Drug Abuse Patient Records regulations: The Federal rules restrict any use of the information to criminally investigate or prosecute any alcohol or drug abuse patient.[facility] the event this information is protected by the Federal Confidentiality of Alcohol and Drug Abuse Patient Records regulations: The Federal rules restrict any use of the information to criminally investigate or prosecute any alcohol or drug abuse patient.[facility] the event this information is protected by the Federal Confidentiality of Alcohol and Drug Abuse Patient Records regulations: The Federal rules restrict any use of the information to criminally investigate or prosecute any alcohol or drug abuse patient.[facility] the event this information is protected by the Federal Confidentiality of Alcohol and Drug Abuse Patient Records regulations: The Federal rules restrict any use of the information to criminally investigate or prosecute any alcohol or drug abuse patient.[facility] the event this information is protected by the Federal Confidentiality of Alcohol and Drug Abuse Patient Records regulations: The Federal rules restrict any use of the information to criminally investigate or prosecute any alcohol or drug abuse patient.[facility] the event this information is protected by the Federal Confidentiality of Alcohol and Drug Abuse Patient Records regulations: The Federal rules restrict any use of the information to criminally investigate or prosecute any alcohol or drug abuse patient.[facility] the event this information is protected by the Federal Confidentiality of Alcohol and Drug Abuse Patient Records regulations: The Federal rules restrict any use of the information to criminally investigate or prosecute any alcohol or drug abuse patient.[facility] the event this information is protected by the Federal Confidentiality of Alcohol and Drug Abuse Patient Records regulations: The Federal rules restrict any use of the information to criminally investigate or prosecute any alcohol or drug abuse patient.[facility] the event this information is protected by the Federal Confidentiality of Alcohol and Drug Abuse Patient Records regulations: The Federal rules restrict any use of the information to criminally investigate or prosecute any alcohol or drug abuse patient.[facility] the event this information is protected by the Federal Confidentiality of Alcohol and Drug Abuse Patient Records regulations: The Federal rules restrict any use of the information to criminally investigate or prosecute any alcohol or drug abuse patient.[facility] the event this information is protected by the Federal Confidentiality of Alcohol and Drug Abuse Patient Records regulations: The Federal rules restrict any use of the information to criminally investigate or prosecute any alcohol or drug abuse patient.[facility]In the event this information is protected by the Federal Confidentiality of Alcohol and Drug Abuse Patient Records regulations: The Federal rules restrict any use of the information to criminally investigate or prosecute any alcohol or drug abuse patient.[facility] the event this information is protected by the Federal Confidentiality of Alcohol and Drug Abuse Patient Records regulations: The Federal rules restrict any use of the information to criminally investigate or prosecute any alcohol or drug abuse patient.[facility] the event this information is protected by the Federal Confidentiality of Alcohol and Drug Abuse Patient Records regulations: The Federal rules restrict any use of the information to criminally investigate or prosecute any alcohol or drug abuse patient.[facility]In the event this information is protected by the Federal Confidentiality of Alcohol and Drug Abuse Patient Records regulations: The Federal rules restrict any use of the information to criminally investigate or prosecute any alcohol or drug abuse patient.[facility]In the event this information is protected by the Federal Confidentiality of Alcohol and Drug Abuse Patient Records regulations: The Federal rules restrict any use of the information to criminally investigate or prosecute any alcohol or drug abuse patient.[facility] the event this information is protected by the Federal Confidentiality of Alcohol and Drug Abuse Patient Records regulations: The Federal rules restrict any use of the information to criminally investigate or prosecute any alcohol or drug abuse patient.[facility]In the event this information is protected by the Federal Confidentiality of Alcohol and Drug Abuse Patient Records regulations: The Federal rules restrict any use of the information to criminally investigate or prosecute any alcohol or drug abuse patient.[facility]In the event this information is protected by the Federal Confidentiality of Alcohol and Drug Abuse Patient Records regulations: The Federal rules restrict any use of the information to criminally investigate or prosecute any alcohol or drug abuse patient.[facility]In the event this information is protected by the Federal Confidentiality of Alcohol and Drug Abuse Patient Records regulations: The Federal rules restrict any use of the information to criminally investigate or prosecute any alcohol or drug abuse patient.[facility]In the event this information is protected by the Federal Confidentiality of Alcohol and Drug Abuse Patient Records regulations: The Federal rules restrict any use of the information to criminally investigate or prosecute any alcohol or drug abuse patient.[facility]In the event this information is protected by the Federal Confidentiality of Alcohol and Drug Abuse Patient Records regulations: The Federal rules restrict any use of the information to criminally investigate or prosecute any alcohol or drug abuse patient.[facility]In the event this information is protected by the Federal Confidentiality of Alcohol and Drug Abuse Patient Records regulations: The Federal rules restrict any use of the information to criminally investigate or prosecute any alcohol or drug abuse patient.[facility]In the event this information is protected by the Federal Confidentiality of Alcohol and Drug Abuse Patient Records regulations: The Federal rules restrict any use of the information to criminally investigate or prosecute any alcohol or drug abuse patient.[facility]In the event this information is protected by the Federal Confidentiality of Alcohol and Drug Abuse Patient Records regulations: The Federal rules restrict any use of the information to criminally investigate or prosecute any alcohol or drug abuse patient.[facility]In the event this information is protected by the Federal Confidentiality of Alcohol and Drug Abuse Patient Records regulations: The Federal rules restrict any use of the information to criminally investigate or prosecute any alcohol or drug abuse patient.[facility]In the event this information is protected by the Federal Confidentiality of Alcohol and Drug Abuse Patient Records regulations: The Federal rules restrict any use of the information to criminally investigate or prosecute any alcohol or drug abuse patient.[facility]In the event this information is protected by the Federal Confidentiality of Alcohol and Drug Abuse Patient Records regulations: The Federal rules restrict any use of the information to criminally investigate or prosecute any alcohol or drug abuse patient.[facility]In the event this information is protected by the Federal Confidentiality of Alcohol and Drug Abuse Patient Records regulations: The Federal rules restrict any use of the information to criminally investigate or prosecute any alcohol or drug abuse patient.[facility]In the event this information is protected by the Federal Confidentiality of Alcohol and Drug Abuse Patient Records regulations: The Federal rules restrict any use of the information to criminally investigate or prosecute any alcohol or drug abuse patient.[facility]In the event this information is protected by the Federal Confidentiality of Alcohol and Drug Abuse Patient Records regulations: The Federal rules restrict any use of the information to criminally investigate or prosecute any alcohol or drug abuse patient.[facility]In the event this information is protected by the Federal Confidentiality of Alcohol and Drug Abuse Patient Records regulations: The Federal rules restrict any use of the information to criminally investigate or prosecute any alcohol or drug abuse patient.[facility]In the event this information is protected by the Federal Confidentiality of Alcohol and Drug Abuse Patient Records regulations: The Federal rules restrict any use of the information to criminally investigate or prosecute any alcohol or drug abuse patient.[facility]In the event this information is protected by the Federal Confidentiality of Alcohol and Drug Abuse Patient Records regulations: The Federal rules restrict any use of the information to criminally investigate or prosecute any alcohol or drug abuse patient.[facility]In the event this information is protected by the Federal Confidentiality of Alcohol and Drug Abuse Patient Records regulations: The Federal rules restrict any use of the information to criminally investigate or prosecute any alcohol or drug abuse patient.[facility]In the event this information is protected by the Federal Confidentiality of Alcohol and Drug Abuse Patient Records regulations: The Federal rules restrict any use of the information to criminally investigate or prosecute any alcohol or drug abuse patient.[facility]In the event this information is protected by the Federal Confidentiality of Alcohol and Drug Abuse Patient Records regulations: The Federal rules restrict any use of the information to criminally investigate or prosecute any alcohol or drug abuse patient.[facility]In the event this information is protected by the Federal Confidentiality of Alcohol and Drug Abuse Patient Records regulations: The Federal rules restrict any use of the information to criminally investigate or prosecute any alcohol or drug abuse patient.[facility]In the event this information is protected by the Federal Confidentiality of Alcohol and Drug Abuse Patient Records regulations: The Federal rules restrict any use of the information to criminally investigate or prosecute any alcohol or drug abuse patient.[facility]In the event this information is protected by the Federal Confidentiality of Alcohol and Drug Abuse Patient Records regulations: The Federal rules restrict any use of the information to criminally investigate or prosecute any alcohol or drug abuse patient.[facility]In the event this information is protected by the Federal Confidentiality of Alcohol and Drug Abuse Patient Records regulations: The Federal rules restrict any use of the information to criminally investigate or prosecute any alcohol or drug abuse patient.[facility]In the event this information is protected by the Federal Confidentiality of Alcohol and Drug Abuse Patient Records regulations: The Federal rules restrict any use of the information to criminally investigate or prosecute any alcohol or drug abuse patient.[facility]In the event this information is protected by the Federal Confidentiality of Alcohol and Drug Abuse Patient Records regulations: The Federal rules restrict any use of the information to criminally investigate or prosecute any alcohol or drug abuse patient.[facility]In the event this information is protected by the Federal Confidentiality of Alcohol and Drug Abuse Patient Records regulations: The Federal rules restrict any use of the information to criminally investigate or prosecute any alcohol or drug abuse patient.[facility]In the event this information is protected by the Federal Confidentiality of Alcohol and Drug Abuse Patient Records regulations: The Federal rules restrict any use of the information to criminally investigate or prosecute any alcohol or drug abuse patient.[facility]In the event this information is protected by the Federal Confidentiality of Alcohol and Drug Abuse Patient Records regulations: The Federal rules restrict any use of the information to criminally investigate or prosecute any alcohol or drug abuse patient.[facility]In the event this information is protected by the Federal Confidentiality of Alcohol and Drug Abuse Patient Records regulations: The Federal rules restrict any use of the information to criminally investigate or prosecute any alcohol or drug abuse patient.[facility]In the event this information is protected by the Federal Confidentiality of Alcohol and Drug Abuse Patient Records regulations: The Federal rules restrict any use of the information to criminally investigate or prosecute any alcohol or drug abuse patient.[facility]In the event this information is protected by the Federal Confidentiality of Alcohol and Drug Abuse Patient Records regulations: The Federal rules restrict any use of the information to criminally investigate or prosecute any alcohol or drug abuse patient.[facility]In the event this information is protected by the Federal Confidentiality of Alcohol and Drug Abuse Patient Records regulations: The Federal rules restrict any use of the information to criminally investigate or prosecute any alcohol or drug abuse patient.[facility]In the event this information is protected by the Federal Confidentiality of Alcohol and Drug Abuse Patient Records regulations: The Federal rules restrict any use of the information to criminally investigate or prosecute any alcohol or drug abuse patient.[facility]In the event this information is protected by the Federal Confidentiality of Alcohol and Drug Abuse Patient Records regulations: The Federal rules restrict any use of the information to criminally investigate or prosecute any alcohol or drug abuse patient.[facility]In the event this information is protected by the Federal Confidentiality of Alcohol and Drug Abuse Patient Records regulations: The Federal rules restrict any use of the information to criminally investigate or prosecute any alcohol or drug abuse patient.[facility]In the event this information is protected by the Federal Confidentiality of Alcohol and Drug Abuse Patient Records regulations: The Federal rules restrict any use of the information to criminally investigate or prosecute any alcohol or drug abuse patient.[facility]In the event this information is protected by the Federal Confidentiality of Alcohol and Drug Abuse Patient Records regulations: The Federal rules restrict any use of the information to criminally investigate or prosecute any alcohol or drug abuse patient.[facility]In the event this information is protected by the Federal Confidentiality of Alcohol and Drug Abuse Patient Records regulations: The Federal rules restrict any use of the information to criminally investigate or prosecute any alcohol or drug abuse patient.[facility]In the event this information is protected by the Federal Confidentiality of Alcohol and Drug Abuse Patient Records regulations: The Federal rules restrict any use of the information to criminally investigate or prosecute any alcohol or drug abuse patient.[facility]In the event this information is protected by the Federal Confidentiality of Alcohol and Drug Abuse Patient Records regulations: The Federal rules restrict any use of the information to criminally investigate or prosecute any alcohol or drug abuse patient.[facility]In the event this information is protected by the Federal Confidentiality of Alcohol and Drug Abuse Patient Records regulations: The Federal rules restrict any use of the information to criminally investigate or prosecute any alcohol or drug abuse patient.[facility]In the event this information is protected by the Federal Confidentiality of Alcohol and Drug Abuse Patient Records regulations: The Federal rules restrict any use of the information to criminally investigate or prosecute any alcohol or drug abuse patient.[facility]In the event this information is protected by the Federal Confidentiality of Alcohol and Drug Abuse Patient Records regulations: The Federal rules restrict any use of the information to criminally investigate or prosecute any alcohol or drug abuse patient.[facility]In the event this information is protected by the Federal Confidentiality of Alcohol and Drug Abuse Patient Records regulations: The Federal rules restrict any use of the information to criminally investigate or prosecute any alcohol or drug abuse patient.[facility]In the event this information is protected by the Federal Confidentiality of Alcohol and Drug Abuse Patient Records regulations: The Federal rules restrict any use of the information to criminally investigate or prosecute any alcohol or drug abuse patient.[facility]In the event this information is protected by the Federal Confidentiality of Alcohol and Drug Abuse Patient Records regulations: The Federal rules restrict any use of the information to criminally investigate or prosecute any alcohol or drug abuse patient.[facility]In the event this information is protected by the Federal Confidentiality of Alcohol and Drug Abuse Patient Records regulations: The Federal rules restrict any use of the information to criminally investigate or prosecute any alcohol or drug abuse patient.[facility]In the event this information is protected by the Federal Confidentiality of Alcohol and Drug Abuse Patient Records regulations: The Federal rules restrict any use of the information to criminally investigate or prosecute any alcohol or drug abuse patient.[facility]In the event this information is protected by the Federal Confidentiality of Alcohol and Drug Abuse Patient Records regulations: The Federal rules restrict any use of the information to criminally investigate or prosecute any alcohol or drug abuse patient.[facility]In the event this information is protected by the Federal Confidentiality of Alcohol and Drug Abuse Patient Records regulations: The Federal rules restrict any use of the information to criminally investigate or prosecute any alcohol or drug abuse patient.[facility]In the event this information is protected by the Federal Confidentiality of Alcohol and Drug Abuse Patient Records regulations: The Federal rules restrict any use of the information to criminally investigate or prosecute any alcohol or drug abuse patient.[facility]In the event this information is protected by the Federal Confidentiality of Alcohol and Drug Abuse Patient Records regulations: The Federal rules restrict any use of the information to criminally investigate or prosecute any alcohol or drug abuse patient.[facility]In the event this information is protected by the Federal Confidentiality of Alcohol and Drug Abuse Patient Records regulations: The Federal rules restrict any use of the information to criminally investigate or prosecute any alcohol or drug abuse patient.[facility]In the event this information is protected by the Federal Confidentiality of Alcohol and Drug Abuse Patient Records regulations: The Federal rules restrict any use of the information to criminally investigate or prosecute any alcohol or drug abuse patient.[facility]In the event this information is protected by the Federal Confidentiality of Alcohol and Drug Abuse Patient Records regulations: The Federal rules restrict any use of the information to criminally investigate or prosecute any alcohol or drug abuse patient.[facility]In the event this information is protected by the Federal Confidentiality of Alcohol and Drug Abuse Patient Records regulations: The Federal rules restrict any use of the information to criminally investigate or prosecute any alcohol or drug abuse patient.[facility]In the event this information is protected by the Federal Confidentiality of Alcohol and Drug Abuse Patient Records regulations: The Federal rules restrict any use of the information to criminally investigate or prosecute any alcohol or drug abuse patient.[facility]In the event this information is protected by the Federal Confidentiality of Alcohol and Drug Abuse Patient Records regulations: The Federal rules restrict any use of the information to criminally investigate or prosecute any alcohol or drug abuse patient.[facility]In the event this information is protected by the Federal Confidentiality of Alcohol and Drug Abuse Patient Records regulations: The Federal rules restrict any use of the information to criminally investigate or prosecute any alcohol or drug abuse patient.[facility]In the event this information is protected by the Federal Confidentiality of Alcohol and Drug Abuse Patient Records regulations: The Federal rules restrict any use of the information to criminally investigate or prosecute any alcohol or drug abuse patient.[facility]In the event this information is protected by the Federal Confidentiality of Alcohol and Drug Abuse Patient Records regulations: The Federal rules restrict any use of the information to criminally investigate or prosecute any alcohol or drug abuse patient.[facility]In the event this information is protected by the Federal Confidentiality of Alcohol and Drug Abuse Patient Records regulations: The Federal rules restrict any use of the information to criminally investigate or prosecute any alcohol or drug abuse patient.[facility]In the event this information is protected by the Federal Confidentiality of Alcohol and Drug Abuse Patient Records regulations: The Federal rules restrict any use of the information to criminally investigate or prosecute any alcohol or drug abuse patient.[facility]In the event this information is protected by the Federal Confidentiality of Alcohol and Drug Abuse Patient Records regulations: The Federal rules restrict any use of the information to criminally investigate or prosecute any alcohol or drug abuse patient.[facility]In the event this information is protected by the Federal Confidentiality of Alcohol and Drug Abuse Patient Records regulations: The Federal rules restrict any use of the information to criminally investigate or prosecute any alcohol or drug abuse patient.[facility]In the event this information is protected by the Federal Confidentiality of Alcohol and Drug Abuse Patient Records regulations: The Federal rules restrict any use of the information to criminally investigate or prosecute any alcohol or drug abuse patient.[facility]In the event this information is protected by the Federal Confidentiality of Alcohol and Drug Abuse Patient Records regulations: The Federal rules restrict any use of the information to criminally investigate or prosecute any alcohol or drug abuse patient.[facility]In the event this information is protected by the Federal Confidentiality of Alcohol and Drug Abuse Patient Records regulations: The Federal rules restrict any use of the information to criminally investigate or prosecute any alcohol or drug abuse patient.[facility]In the event this information is protected by the Federal Confidentiality of Alcohol and Drug Abuse Patient Records regulations: The Federal rules restrict any use of the information to criminally investigate or prosecute any alcohol or drug abuse patient.[facility]In the event this information is protected by the Federal Confidentiality of Alcohol and Drug Abuse Patient Records regulations: The Federal rules restrict any use of the information to criminally investigate or prosecute any alcohol or drug abuse patient.[facility]In the event this information is protected by the Federal Confidentiality of Alcohol and Drug Abuse Patient Records regulations: The Federal rules restrict any use of the information to criminally investigate or prosecute any alcohol or drug abuse patient.[facility]In the event this information is protected by the Federal Confidentiality of Alcohol and Drug Abuse Patient Records regulations: The Federal rules restrict any use of the information to criminally investigate or prosecute any alcohol or drug abuse patient.[facility]In the event this information is protected by the Federal Confidentiality of Alcohol and Drug Abuse Patient Records regulations: The Federal rules restrict any use of the information to criminally investigate or prosecute any alcohol or drug abuse patient.[facility]In the event this information is protected by the Federal Confidentiality of Alcohol and Drug Abuse Patient Records regulations: The Federal rules restrict any use of the information to criminally investigate or prosecute any alcohol or drug abuse patient.[facility]In the event this information is protected by the Federal Confidentiality of Alcohol and Drug Abuse Patient Records regulations: The Federal rules restrict any use of the information to criminally investigate or prosecute any alcohol or drug abuse patient.[facility]In the event this information is protected by the Federal Confidentiality of Alcohol and Drug Abuse Patient Records regulations: The Federal rules restrict any use of the information to criminally investigate or prosecute any alcohol or drug abuse patient.[facility]In the event this information is protected by the Federal Confidentiality of Alcohol and Drug Abuse Patient Records regulations: The Federal rules restrict any use of the information to criminally investigate or prosecute any alcohol or drug abuse patient.[facility]In the event this information is protected by the Federal Confidentiality of Alcohol and Drug Abuse Patient Records regulations: The Federal rules restrict any use of the information to criminally investigate or prosecute any alcohol or drug abuse patient.[facility]In the event this information is protected by the Federal Confidentiality of Alcohol and Drug Abuse Patient Records regulations: The Federal rules restrict any use of the information to criminally investigate or prosecute any alcohol or drug abuse patient.[facility]In the event this information is protected by the Federal Confidentiality of Alcohol and Drug Abuse Patient Records regulations: The Federal rules restrict any use of the information to criminally investigate or prosecute any alcohol or drug abuse patient.[facility]In the event this information is protected by the Federal Confidentiality of Alcohol and Drug Abuse Patient Records regulations: The Federal rules restrict any use of the information to criminally investigate or prosecute any alcohol or drug abuse patient.[facility]In the event this information is protected by the Federal Confidentiality of Alcohol and Drug Abuse Patient Records regulations: The Federal rules restrict any use of the information to criminally investigate or prosecute any alcohol or drug abuse patient.[facility]In the event this information is protected by the Federal Confidentiality of Alcohol and Drug Abuse Patient Records regulations: The Federal rules restrict any use of the information to criminally investigate or prosecute any alcohol or drug abuse patient.[facility] HospitalIn the event this information is protected by the Federal Confidentiality of Alcohol and Drug Abuse Patient Records regulations: The Federal rules restrict any use of the information to criminally investigate or prosecute any alcohol or drug abuse patient.[facility] HospitalIn the event this information is protected by the Federal Confidentiality of Alcohol and Drug Abuse Patient Records regulations: The Federal rules restrict any use of the information to criminally investigate or prosecute any alcohol or drug abuse patient.[facility]In the event this information is protected by the Federal Confidentiality of Alcohol and Drug Abuse Patient Records regulations: The Federal rules restrict any use of the information to criminally investigate or prosecute any alcohol or drug abuse patient.[facility]In the event this information is protected by the Federal Confidentiality of Alcohol and Drug Abuse Patient Records regulations: The Federal rules restrict any use of the information to criminally investigate or prosecute any alcohol or drug abuse patient.[facility]In the event this information is protected by the Federal Confidentiality of Alcohol and Drug Abuse Patient Records regulations: The Federal rules restrict any use of the information to criminally investigate or prosecute any alcohol or drug abuse patient.[facility] HospitalIn the event this information is protected by the Federal Confidentiality of Alcohol and Drug Abuse Patient Records regulations: The Federal rules restrict any use of the information to criminally investigate or prosecute any alcohol or drug abuse patient.[facility]In the event this information is protected by the Federal Confidentiality of Alcohol and Drug Abuse Patient Records regulations: The Federal rules restrict any use of the information to criminally investigate or prosecute any alcohol or drug abuse patient.[facility]In the event this information is protected by the Federal Confidentiality of Alcohol and Drug Abuse Patient Records regulations: The Federal rules restrict any use of the information to criminally investigate or prosecute any alcohol or drug abuse patient.[facility]In the event this information is protected by the Federal Confidentiality of Alcohol and Drug Abuse Patient Records regulations: The Federal rules restrict any use of the information to criminally investigate or prosecute any alcohol or drug abuse patient.[facility]In the event this information is protected by the Federal Confidentiality of Alcohol and Drug Abuse Patient Records regulations: The Federal rules restrict any use of the information to criminally investigate or prosecute any alcohol or drug abuse patient.[facility] HospitalIn the event this information is protected by the Federal Confidentiality of Alcohol and Drug Abuse Patient Records regulations: The Federal rules restrict any use of the information to criminally investigate or prosecute any alcohol or drug abuse patient.[facility]In the event this information is protected by the Federal Confidentiality of Alcohol and Drug Abuse Patient Records regulations: The Federal rules restrict any use of the information to criminally investigate or prosecute any alcohol or drug abuse patient.[facility]In the event this information is protected by the Federal Confidentiality of Alcohol and Drug Abuse Patient Records regulations: The Federal rules restrict any use of the information to criminally investigate or prosecute any alcohol or drug abuse patient.[facility]In the event this information is protected by the Federal Confidentiality of Alcohol and Drug Abuse Patient Records regulations: The Federal rules restrict any use of the information to criminally investigate or prosecute any alcohol or drug abuse patient.[facility]In the event this information is protected by the Federal Confidentiality of Alcohol and Drug Abuse Patient Records regulations: The Federal rules restrict any use of the information to criminally investigate or prosecute any alcohol or drug abuse patient.[facility]In the event this information is protected by the Federal Confidentiality of Alcohol and Drug Abuse Patient Records regulations: The Federal rules restrict any use of the information to criminally investigate or prosecute any alcohol or drug abuse patient.[facility] HospitalIn the event this information is protected by the Federal Confidentiality of Alcohol and Drug Abuse Patient Records regulations: The Federal rules restrict any use of the information to criminally investigate or prosecute any alcohol or drug abuse patient.[facility] HospitalIn the event this information is protected by the Federal Confidentiality of Alcohol and Drug Abuse Patient Records regulations: The Federal rules restrict any use of the information to criminally investigate or prosecute any alcohol or drug abuse patient.[facility]In the event this information is protected by the Federal Confidentiality of Alcohol and Drug Abuse Patient Records regulations: The Federal rules restrict any use of the information to criminally investigate or prosecute any alcohol or drug abuse patient.[facility] HospitalIn the event this information is protected by the Federal Confidentiality of Alcohol and Drug Abuse Patient Records regulations: The Federal rules restrict any use of the information to criminally investigate or prosecute any alcohol or drug abuse patient.[facility] HospitalIn the event this information is protected by the Federal Confidentiality of Alcohol and Drug Abuse Patient Records regulations: The Federal rules restrict any use of the information to criminally investigate or prosecute any alcohol or drug abuse patient.[facility] HospitalIn the event this information is protected by the Federal Confidentiality of Alcohol and Drug Abuse Patient Records regulations: The Federal rules restrict any use of the information to criminally investigate or prosecute any alcohol or drug abuse patient.[facility] HospitalIn the event this information is protected by the Federal Confidentiality of Alcohol and Drug Abuse Patient Records regulations: The Federal rules restrict any use of the information to criminally investigate or prosecute any alcohol or drug abuse patient.[facility]In the event this information is protected by the Federal Confidentiality of Alcohol and Drug Abuse Patient Records regulations: The Federal rules restrict any use of the information to criminally investigate or prosecute any alcohol or drug abuse patient.[facility] HospitalIn the event this information is protected by the Federal Confidentiality of Alcohol and Drug Abuse Patient Records regulations: The Federal rules restrict any use of the information to criminally investigate or prosecute any alcohol or drug abuse patient.[facility] HospitalIn the event this information is protected by the Federal Confidentiality of Alcohol and Drug Abuse Patient Records regulations: The Federal rules restrict any use of the information to criminally investigate or prosecute any alcohol or drug abuse patient.[facility] HospitalIn the event this information is protected by the Federal Confidentiality of Alcohol and Drug Abuse Patient Records regulations: The Federal rules restrict any use of the information to criminally investigate or prosecute any alcohol or drug abuse patient.[facility] HospitalIn the event this information is protected by the Federal Confidentiality of Alcohol and Drug Abuse Patient Records regulations: The Federal rules restrict any use of the information to criminally investigate or prosecute any alcohol or drug abuse patient.[facility] HospitalIn the event this information is protected by the Federal Confidentiality of Alcohol and Drug Abuse Patient Records regulations: The Federal rules restrict any use of the information to criminally investigate or prosecute any alcohol or drug abuse patient.[facility] HospitalIn the event this information is protected by the Federal Confidentiality of Alcohol and Drug Abuse Patient Records regulations: The Federal rules restrict any use of the information to criminally investigate or prosecute any alcohol or drug abuse patient.[facility] HospitalIn the event this information is protected by the Federal Confidentiality of Alcohol and Drug Abuse Patient Records regulations: The Federal rules restrict any use of the information to criminally investigate or prosecute any alcohol or drug abuse patient.[facility] HospitalIn the event this information is protected by the Federal Confidentiality of Alcohol and Drug Abuse Patient Records regulations: The Federal rules restrict any use of the information to criminally investigate or prosecute any alcohol or drug abuse patient.[facility] HospitalIn the event this information is protected by the Federal Confidentiality of Alcohol and Drug Abuse Patient Records regulations: The Federal rules restrict any use of the information to criminally investigate or prosecute any alcohol or drug abuse patient.[facility]In the event this information is protected by the Federal Confidentiality of Alcohol and Drug Abuse Patient Records regulations: The Federal rules restrict any use of the information to criminally investigate or prosecute any alcohol or drug abuse patient.[facility] HospitalIn the event this information is protected by the Federal Confidentiality of Alcohol and Drug Abuse Patient Records regulations: The Federal rules restrict any use of the information to criminally investigate or prosecute any alcohol or drug abuse patient.[facility]In the event this information is protected by the Federal Confidentiality of Alcohol and Drug Abuse Patient Records regulations: The Federal rules restrict any use of the information to criminally investigate or prosecute any alcohol or drug abuse patient.[facility] HospitalIn the event this information is protected by the Federal Confidentiality of Alcohol and Drug Abuse Patient Records regulations: The Federal rules restrict any use of the information to criminally investigate or prosecute any alcohol or drug abuse patient.[facility] HospitalIn the event this information is protected by the Federal Confidentiality of Alcohol and Drug Abuse Patient Records regulations: The Federal rules restrict any use of the information to criminally investigate or prosecute any alcohol or drug abuse patient.[facility] HospitalIn the event this information is protected by the Federal Confidentiality of Alcohol and Drug Abuse Patient Records regulations: The Federal rules restrict any use of the information to criminally investigate or prosecute any alcohol or drug abuse patient.[facility] HospitalIn the event this information is protected by the Federal Confidentiality of Alcohol and Drug Abuse Patient Records regulations: The Federal rules restrict any use of the information to criminally investigate or prosecute any alcohol or drug abuse patient.[facility] HospitalIn the event this information is protected by the Federal Confidentiality of Alcohol and Drug Abuse Patient Records regulations: The Federal rules restrict any use of the information to criminally investigate or prosecute any alcohol or drug abuse patient.[facility] HospitalIn the event this information is protected by the Federal Confidentiality of Alcohol and Drug Abuse Patient Records regulations: The Federal rules restrict any use of the information to criminally investigate or prosecute any alcohol or drug abuse patient.[facility] HospitalIn the event this information is protected by the Federal Confidentiality of Alcohol and Drug Abuse Patient Records regulations: The Federal rules restrict any use of the information to criminally investigate or prosecute any alcohol or drug abuse patient.[facility] HospitalIn the event this information is protected by the Federal Confidentiality of Alcohol and Drug Abuse Patient Records regulations: The Federal rules restrict any use of the information to criminally investigate or prosecute any alcohol or drug abuse patient.[facility]In the event this information is protected by the Federal Confidentiality of Alcohol and Drug Abuse Patient Records regulations: The Federal rules restrict any use of the information to criminally investigate or prosecute any alcohol or drug abuse patient.[facility] HospitalIn the event this information is protected by the Federal Confidentiality of Alcohol and Drug Abuse Patient Records regulations: The Federal rules restrict any use of the information to criminally investigate or prosecute any alcohol or drug abuse patient.[facility] HospitalIn the event this information is protected by the Federal Confidentiality of Alcohol and Drug Abuse Patient Records regulations: The Federal rules restrict any use of the information to criminally investigate or prosecute any alcohol or drug abuse patient.[facility] HospitalIn the event this information is protected by the Federal Confidentiality of Alcohol and Drug Abuse Patient Records regulations: The Federal rules restrict any use of the information to criminally investigate or prosecute any alcohol or drug abuse patient.[facility]In the event this information is protected by the Federal Confidentiality of Alcohol and Drug Abuse Patient Records regulations: The Federal rules restrict any use of the information to criminally investigate or prosecute any alcohol or drug abuse patient.[facility]In the event this information is protected by the Federal Confidentiality of Alcohol and Drug Abuse Patient Records regulations: The Federal rules restrict any use of the information to criminally investigate or prosecute any alcohol or drug abuse patient.[facility]In the event this information is protected by the Federal Confidentiality of Alcohol and Drug Abuse Patient Records regulations: The Federal rules restrict any use of the information to criminally investigate or prosecute any alcohol or drug abuse patient.[facility] HospitalIn the event this information is protected by the Federal Confidentiality of Alcohol and Drug Abuse Patient Records regulations: The Federal rules restrict any use of the information to criminally investigate or prosecute any alcohol or drug abuse patient.[facility] HospitalIn the event this information is protected by the Federal Confidentiality of Alcohol and Drug Abuse Patient Records regulations: The Federal rules restrict any use of the information to criminally investigate or prosecute any alcohol or drug abuse patient.[facility]In the event this information is protected by the Federal Confidentiality of Alcohol and Drug Abuse Patient Records regulations: The Federal rules restrict any use of the information to criminally investigate or prosecute any alcohol or drug abuse patient.[facility]In the event this information is protected by the Federal Confidentiality of Alcohol and Drug Abuse Patient Records regulations: The Federal rules restrict any use of the information to criminally investigate or prosecute any alcohol or drug abuse patient.[facility]In the event this information is protected by the Federal Confidentiality of Alcohol and Drug Abuse Patient Records regulations: The Federal rules restrict any use of the information to criminally investigate or prosecute any alcohol or drug abuse patient.[facility]In the event this information is protected by the Federal Confidentiality of Alcohol and Drug Abuse Patient Records regulations: The Federal rules restrict any use of the information to criminally investigate or prosecute any alcohol or drug abuse patient.[facility]In the event this information is protected by the Federal Confidentiality of Alcohol and Drug Abuse Patient Records regulations: The Federal rules restrict any use of the information to criminally investigate or prosecute any alcohol or drug abuse patient.[facility]In the event this information is protected by the Federal Confidentiality of Alcohol and Drug Abuse Patient Records regulations: The Federal rules restrict any use of the information to criminally investigate or prosecute any alcohol or drug abuse patient.[facility]In the event this information is protected by the Federal Confidentiality of Alcohol and Drug Abuse Patient Records regulations: The Federal rules restrict any use of the information to criminally investigate or prosecute any alcohol or drug abuse patient.[facility]In the event this information is protected by the Federal Confidentiality of Alcohol and Drug Abuse Patient Records regulations: The Federal rules restrict any use of the information to criminally investigate or prosecute any alcohol or drug abuse patient.[facility]In the event this information is protected by the Federal Confidentiality of Alcohol and Drug Abuse Patient Records regulations: The Federal rules restrict any use of the information to criminally investigate or prosecute any alcohol or drug abuse patient.[facility]In the event this information is protected by the Federal Confidentiality of Alcohol and Drug Abuse Patient Records regulations: The Federal rules restrict any use of the information to criminally investigate or prosecute any alcohol or drug abuse patient.[facility]In the event this information is protected by the Federal Confidentiality of Alcohol and Drug Abuse Patient Records regulations: The Federal rules restrict any use of the information to criminally investigate or prosecute any alcohol or drug abuse patient.[facility]In the event this information is protected by the Federal Confidentiality of Alcohol and Drug Abuse Patient Records regulations: The Federal rules restrict any use of the information to criminally investigate or prosecute any alcohol or drug abuse patient.[facility]In the event this information is protected by the Federal Confidentiality of Alcohol and Drug Abuse Patient Records regulations: The Federal rules restrict any use of the information to criminally investigate or prosecute any alcohol or drug abuse patient.[facility]In the event this information is protected by the Federal Confidentiality of Alcohol and Drug Abuse Patient Records regulations: The Federal rules restrict any use of the information to criminally investigate or prosecute any alcohol or drug abuse patient.[facility]In the event this information is protected by the Federal Confidentiality of Alcohol and Drug Abuse Patient Records regulations: The Federal rules restrict any use of the information to criminally investigate or prosecute any alcohol or drug abuse patient.[facility]In the event this information is protected by the Federal Confidentiality of Alcohol and Drug Abuse Patient Records regulations: The Federal rules restrict any use of the information to criminally investigate or prosecute any alcohol or drug abuse patient.[facility]In the event this information is protected by the Federal Confidentiality of Alcohol and Drug Abuse Patient Records regulations: The Federal rules restrict any use of the information to criminally investigate or prosecute any alcohol or drug abuse patient.[facility]In the event this information is protected by the Federal Confidentiality of Alcohol and Drug Abuse Patient Records regulations: The Federal rules restrict any use of the information to criminally investigate or prosecute any alcohol or drug abuse patient.[facility]In the event this information is protected by the Federal Confidentiality of Alcohol and Drug Abuse Patient Records regulations: The Federal rules restrict any use of the information to criminally investigate or prosecute any alcohol or drug abuse patient.[facility]In the event this information is protected by the Federal Confidentiality of Alcohol and Drug Abuse Patient Records regulations: The Federal rules restrict any use of the information to criminally investigate or prosecute any alcohol or drug abuse patient.[facility] Care Teams (unrecognized sec tion and content) [employer] Operator Relationship Specialty Start Date End Date Priyanka Smith MD [address] [place], [place] [id number] PCP - General Family Practice 12/22/17 Regulo Mendoza MD Primary Staff Physician Nephrology 06/12/21 Regrind Mill Operator Relationship Specialty Start Date End Date Priyanka Smith MD [address] [place], [place] [id number] PCP - General Family Practice 12/22/17 Regulo Mendoza MD Primary Staff Physician Nephrology 06/12/21 Regrind Mill Operator Relationship Specialty Start Date End Date Priyanka Smith MD [address] [place], [place] [id number] [phone] PCP - General Family Practice 12/22/17 Regulo Mendoza MD Primary Staff Physician Nephrology 06/12/21 Regrind Mill Operator Relationship Specialty Start Date End Date Priyanka Smith MD [address] [place] [address] PCP - General Family Practice 12/22/17 Regulo Mendoza MD Primary Staff Physician Nephrology 06/12/21 Regrind Mill Operator Relationship Specialty Start Date End Date Priyanka Smith MD [address] [place] [address] PCP - General Family Practice 12/22/17 Regulo Mendoza MD Primary Staff Physician Nephrology 06/12/21 Regrind Mill Operator Relationship Specialty Start Date End Date Priyanka Smith MD [address] [place] [address] PCP - General Family Practice 12/22/17 Regulo Mendoza MD Primary Staff Physician Nephrology 06/12/21 Regrind Mill Operator Relationship Specialty Start Date End Date Priyanka Smith MD [address] [place] [address] PCP - General Family Practice 12/22/17 Regulo Mendoza MD Primary Staff Physician Nephrology 06/12/21 Regrind Mill Operator Relationship Specialty Start Date End Date Priyanka Smith MD [address] [place] [address] PCP - General Family Practice 12/22/17 Regulo Mendoza MD Primary Staff Physician Nephrology 06/12/21 Regrind Mill Operator Relationship Specialty Start Date End Date Priyanka Smith MD [address] [place] [address] PCP - General Family Practice 12/22/17 Regulo Mendoza MD Primary Staff Physician Nephrology 06/12/21 Regrind Mill Operator Relationship Specialty Start Date End Date Priyanka Smith MD [address] [place] [address] PCP - General Family Medicine 12/22/17 Regulo Mendoza MD Primary Staff Physician Nephrology 06/12/21 Regrind Mill Operator Relationship Specialty Start Date End Date Priyanka Smith MD [address] [place] [address] PCP - General Family Medicine 12/22/17 Regulo Mendoza MD Primary Staff Physician Nephrology 06/12/21 Regrind Mill Operator Relationship Specialty Start Date End Date Priyanka Smith MD [address] [place] [address] PCP - General Family Medicine 12/22/17 Regulo Mendoza MD Primary Staff Physician Nephrology 06/12/21 Regrind Mill Operator Relationship Specialty Start Date End Date Priyanka Smith MD [address] [place] [address] PCP - General Family Medicine 12/22/17 Regulo Mendoza MD Primary Staff Physician Nephrology 06/12/21 Regrind Mill Operator Relationship Specialty Start Date End Date Priyanka Smith MD [address] [place] [address] PCP - General Family Medicine 12/22/17 Regulo Mendoza MD Primary Staff Physician Nephrology 06/12/21 Regrind Mill Operator Relationship Specialty Start Date End Date Priyanka Smith MD [address] [place] [address] PCP - General Family Medicine 12/22/17 Regulo Mendoza MD Primary Staff Physician Nephrology 06/12/21 Regrind Mill Operator Relationship Specialty Start Date End Date Priyanka Smith MD [address] [place] [address] PCP - General Family Medicine 12/22/17 Regulo Mendoza MD Primary Staff Physician Nephrology 06/12/21 Regrind Mill Operator Relationship Specialty Start Date End Date Priyanka Smith MD [address] [place] [address] PCP - General Family Medicine 12/22/17 Regulo Mendoza MD Primary Staff Physician Nephrology 06/12/21 Regrind Mill Operator Relationship Specialty Start Date End Date Priyanka Smith MD [address] [place] [address] PCP - General Family Medicine 12/22/17 Regulo Mendoza MD Primary Staff Physician Nephrology 06/12/21 Regrind Mill Operator Relationship Specialty Start Date End Date Priyanka Smith MD [address] [place] [address] PCP - General Family Medicine 12/22/17 Regulo Mendoza MD Primary Staff Physician Nephrology 06/12/21 Regrind Mill Operator Relationship Specialty Start Date End Date Priyanka Smith MD [address] [place] [address] PCP - General Family Medicine 12/22/17 Regulo Mendoza MD [address] [place] [address] Primary Staff Physician Nephrology 06/12/21 Regrind Mill Operator Relationship Specialty Start Date End Date Priyanka Smith MD [address] [place] [address] PCP - General Family Medicine 12/22/17 Regulo Mendoza MD [address] [place] [address] Primary Staff Physician Nephrology 06/12/21 Regrind Mill Operator Relationship Specialty Start Date End Date Priyanka Smith MD [address] [place] [address] PCP - General Family Medicine 12/22/17 Regulo Mendoza MD [address] [place] [address] Primary Staff Physician Nephrology 06/12/21 Regrind Mill Operator Relationship Specialty Start Date End Date Priyanka Smith MD [address] [place] [address] PCP - General Family Medicine 12/22/17 Regulo Mendoza MD [address] [place] [address] Primary Staff Physician Nephrology 06/12/21 Regrind Mill Operator Relationship Specialty Start Date End Date Priyanka Smith MD [address] [place] [address] PCP - General Family Medicine 12/22/17 Regulo Mendoza MD [address] [place] [address] Primary Staff Physician Nephrology 06/12/21 Regrind Mill Operator Relationship Specialty Start Date End Date Priyanka Smith MD [address] [place] [address] PCP - General Family Medicine 12/22/17 Regulo Mendoza MD [address] [place] [address] Primary Staff Physician Nephrology 06/12/21 Regrind Mill Operator Relationship Specialty Start Date End Date Priyanka Smith MD [address] [place] [address] PCP - General Family Medicine 12/22/17 Regulo Mendoza MD [address] [place] [address] Primary Staff Physician Nephrology 06/12/21 Regrind Mill Operator Relationship Specialty Start Date End Date Priyanka Smith MD [address] [place] [address] PCP - General Family Medicine 12/22/17 Regulo Mendoza MD [address] [place] [address] Primary Staff Physician Nephrology 06/12/21 Regrind Mill Operator Relationship Specialty Start Date End Date Priyanka Smith MD [address] [place] [address] PCP - General Family Medicine 12/22/17 Regulo Mendoza MD [address] [place] [address] Primary Staff Physician Nephrology 06/12/21 Regrind Mill Operator Relationship Specialty Start Date End Date Priyanka Smith MD [address] [place] [address] PCP - General Family Medicine 12/22/17 Regulo Mendoza MD [address] [place] [address] Primary Staff Physician Nephrology 06/12/21 Regrind Mill Operator Relationship Specialty Start Date End Date Priyanka Smith MD [address] [place] [address] PCP - General Family Medicine 12/22/17 Regulo Mendoza MD [address] [place] [address] Primary Staff Physician Nephrology 06/12/21 Regrind Mill Operator Relationship Specialty Start Date End Date Priyanka Smith MD [address] [place] [address] PCP - General Family Medicine 12/22/17 Regulo Mendoza MD [address] [place] [address] Primary Staff Physician Nephrology 06/12/21 Regrind Mill Operator Relationship Specialty Start Date End Date Priyanka Smith MD [address] [place] [address] PCP - General Family Medicine 12/22/17 Regulo Mendoza MD [address] [place] [address] Primary Staff Physician Nephrology 06/12/21 Regrind Mill Operator Relationship Specialty Start Date End Date Priyanka Smith MD [address] [place] [address] PCP - General Family Medicine 12/22/17 Regulo Mendoza MD [address] [place] [address] Primary Staff Physician Nephrology 06/12/21 Regrind Mill Operator Relationship Specialty Start Date End Date Priyanka Smith MD [address] [place] [address] PCP - General Family Medicine 12/22/17 Regulo Mendoza MD [address] [place] [address] Primary Staff Physician Nephrology 06/12/21 Regrind Mill Operator Relationship Specialty Start Date End Date Priyanka Smith MD [address] [place] [address] PCP - General Family Medicine 12/22/17 Regulo Mendoza MD [address] [place] [address] Primary Staff Physician Nephrology 06/12/21 Regrind Mill Operator Relationship Specialty Start Date End Date Priyanka Smith MD [address] [place] [address] PCP - General Family Medicine 12/22/17 Regulo Mendoza MD [address] [place] [address] Primary Staff Physician Nephrology 06/12/21 Regrind Mill Operator Relationship Specialty Start Date End Date Priyanka Smith MD [address] [facility], [place] 178471 PCP - General Family Medicine 12/22/17 Regulo Mendoza MD [address] [place] [address] Primary Staff Physician Nephrology 06/12/21 Regrind Mill Operator Relationship Specialty Start Date End Date Priyanka Smith MD [address] [facility], [place] 602011 PCP - General Family Medicine 12/22/17 Regulo Mendoza MD [address] [place] [address] Primary Staff Physician Nephrology 06/12/21 Regrind Mill Operator Relationship Specialty Start Date End Date Priyanka Smith MD [address] [facility], [place] 235871 PCP - General Family Medicine 12/22/17 Regulo Mendoza MD [address] [place] [address] Primary Staff Physician Nephrology 06/12/21 Regrind Mill Operator Relationship Specialty Start Date End Date Priyanka Smith MD [address] [facility], [place] 077501 PCP - General Family Medicine 12/22/17 Regulo Mendoza MD [address] [place], [place] 873581 Primary Staff Physician Nephrology 06/12/21 Regrind Mill Operator Relationship Specialty Start Date End Date Priyanka Smith MD [address] [place], [place] 118141 PCP - General Family Medicine 12/22/17 Regulo Mendoza MD [address] [place], [place] 702471 Primary Staff Physician Nephrology 06/12/21 Regrind Mill Operator Relationship Specialty Start Date End Date Priyanka Smith MD [address] [place], [place] 558091 PCP - General Family Medicine 12/22/17 Regulo Mendoza MD [address] [place], [place] 977151 Primary Staff Physician Nephrology 06/12/21 Regrind Mill Operator Relationship Specialty Start Date End Date Priyanka Smith MD [address] [place], [place] 144721 PCP - General Family Medicine 12/22/17 Regulo Mendoza MD [address] [place], [place] 813491 Primary Staff Physician Nephrology 06/12/21 Regrind Mill Operator Relationship Specialty Start Date End Date Priyanka Smith MD [address] [place], [place] 052531 PCP - General Family Medicine 12/22/17 Regulo Mendoza MD [address] [place], [place] 627171 Primary Staff Physician Nephrology 06/12/21 Regrind Mill Operator Relationship Specialty Start Date End Date Priyanka Smith MD [address] [place], [place] 022991 PCP - General Family Medicine 12/22/17 Regulo Mendoza MD [address] [place], [place] 379671 Primary Staff Physician Nephrology 06/12/21 Regrind Mill Operator Relationship Specialty Start Date End Date Priyanka Smith MD [address] [place], [place] 202511 PCP - General Family Medicine 12/22/17 Regulo Mendoza MD [address] [place], [place] 660931 Primary Staff Physician Nephrology 06/12/21 Regrind Mill Operator Relationship Specialty Start Date End Date Priyanka Smith MD [address] [place], [place] 009901 PCP - General Family Medicine 12/22/17 Regulo Mendoza MD [address] [place], [place] 748881 Primary Staff Physician Nephrology 06/12/21 Regrind Mill Operator Relationship Specialty Start Date End Date Priyanka Smith MD [address] [place], [place] 47523691 PCP - General Family Medicine 12/22/17 Regulo Mendoza MD [address] [place], [place] 717471 Primary Staff Physician Nephrology 06/12/21 Regrind Mill Operator Relationship Specialty Start Date End Date Priyanka Smith MD [address] [place], [place] 234081 PCP - General Family Medicine 12/22/17 Regulo Mendoza MD [address] [place] [address] Primary Staff Physician Nephrology 06/12/21 Regrind Mill Operator Relationship Specialty Start Date End Date Priyanka Smith MD [address] [place], [place] 671921 PCP - General Family Medicine 12/22/17 Regulo Mendoza MD [address] [place], [place] 012351 Primary Staff Physician Nephrology 06/12/21 Regrind Mill Operator Relationship Specialty Start Date End Date Priyanka Smith MD [address] [place], [place] 943741 PCP - General Family Medicine 12/22/17 Regulo Mendoza MD [address] [place], [place] 05667691 Primary Staff Physician Nephrology 06/12/21 Regrind Mill Operator Relationship Specialty Start Date End Date Priyanka Smith MD [address] [place], [place] 52733691 PCP - General Family Medicine 12/22/17 Regulo Mendoza MD [address] [place], [place] 339191 Primary Staff Physician Nephrology 06/12/21 Regrind Mill Operator Relationship Specialty Start Date End Date Priyanka Smith MD [address] [place], [place] 524341 PCP - General Family Medicine 12/22/17 Regulo Mendoza MD [address] [place], [place] 27997691 Primary Staff Physician Nephrology 06/12/21 Regrind Mill Operator Relationship Specialty Start Date End Date Priyanka Smith MD [address] [place], [place] 888951 PCP - General Family Medicine 12/22/17 Regulo Mendoza MD [address] [place], [place] 502971 Primary Staff Physician Nephrology 06/12/21 Regrind Mill Operator Relationship Specialty Start Date End Date Priyanka Smith MD [address] [place], [place] 239111 PCP - General Family Medicine 12/22/17 Regulo Mendoza MD [address] [place], [place] 73224691 Primary Staff Physician Nephrology 06/12/21 Regrind Mill Operator Relationship Specialty Start Date End Date Priyanka Smith MD [address] [place], [place] [id number] PCP - General Family Medicine 12/22/17 Regulo Mendoza MD [address] [place], [place] 681241 Primary Staff Physician Nephrology 06/12/21 Regrind Mill Operator Relationship Specialty Start Date End Date Priyanka Smith MD [address] [place], [place] 008941 PCP - General Family Medicine 12/22/17 Regulo Mendoza MD [address] [place] [address] Primary Staff Physician Nephrology 06/12/21 Regrind Mill Operator Relationship Specialty Start Date End Date Priyanka Smith MD [address] [place], [place] 309821 PCP - General Family Medicine 12/22/17 Regulo Mendoza MD [address] [place], [place] 036641 Primary Staff Physician Nephrology 06/12/21 Regrind Mill Operator Relationship Specialty Start Date End Date Priyanka Smith MD [address] [place], [place] 745641 PCP - General Family Medicine 12/22/17 Regulo Mendoza MD [address] [place], [place] 062341 Primary Staff Physician Nephrology 06/12/21 Regrind Mill Operator Relationship Specialty Start Date End Date Priyanka Smith MD [address] [place] [address] PCP - General Family Medicine 12/22/17 Regulo Mendoza MD [address] [place] [address] Primary Staff Physician Nephrology 06/12/21 Regrind Mill Operator Relationship Specialty Start Date End Date Priyanka Smith MD [address] [place] [address] PCP - General Family Medicine 12/22/17 Regulo Mendoza MD [address] [place] [address] Primary Staff Physician Nephrology 06/12/21 Regrind Mill Operator Relationship Specialty Start Date End Date Priyanka Smith MD [address] [place], [place] 315971 PCP - General Family Medicine 12/22/17 Regulo Mendoza MD [address] [place], [place] 218071 Primary Staff Physician Nephrology 06/12/21 Regrind Mill Operator Relationship Specialty Start Date End Date Priyanka Smith MD [address] [place], [place] 207971 PCP - General Family Medicine 12/22/17 Regulo Mendoza MD [address] [place] [address] Primary Staff Physician Nephrology 06/12/21 Regrind Mill Operator Relationship Specialty Start Date End Date Priyanka Smith MD [address] [place] [address] PCP - General Family Medicine 12/22/17 Regulo Mendoza MD [address] [place] [address] Primary Staff Physician Nephrology 06/12/21 Regrind Mill Operator Relationship Specialty Start Date End Date Priyanka Smith MD [address] [place], [place] 138901 PCP - General Family Medicine 12/22/17 Regulo Mendoza MD [address] [place] [address] Primary Staff Physician Nephrology 06/12/21 Regrind Mill Operator Relationship Specialty Start Date End Date Priyanka Smith MD [address] [place], [place] 519601 PCP - General Family Medicine 12/22/17 Regulo Mendoza MD [address] [place], [place] 871651 Primary Staff Physician Nephrology 06/12/21 Regrind Mill Operator Relationship Specialty Start Date End Date Priyanka Smith MD [address] [place], [place] 100731 PCP - General Family Medicine 12/22/17 Regulo Mendoza MD [address] [place], [place] 593401 Primary Staff Physician Nephrology 06/12/21 Regrind Mill Operator Relationship Specialty Start Date End Date Priyanka Smith MD [address] [facility], [place] 322301 PCP - General Family Medicine 12/22/17 Regulo Mendoza MD [address] [place] [address] Primary Staff Physician Nephrology 06/12/21 Regrind Mill Operator Relationship Specialty Start Date End Date Priyanka Smith MD [address] [facility], [place] 999441 PCP - General Family Medicine 12/22/17 Regulo Mendoza MD [address] [place] [address] Primary Staff Physician Nephrology 06/12/21 Regrind Mill Operator Relationship Specialty Start Date End Date Priyanka Smith MD [address] [place], [place] 058921 PCP - General Family Medicine 12/22/17 Regulo Mendoza MD [address] [facility], [place] 161041 Primary Staff Physician Nephrology 06/12/21 Regrind Mill Operator Relationship Specialty Start Date End Date Priyanka Smith MD [address] [facility], [place] 588231 PCP - General Family Medicine 12/22/17 Regulo Mendoza MD [address] [facility], [place] 017181 Primary Staff Physician Nephrology 06/12/21 Regrind Mill Operator Relationship Specialty Start Date End Date Priyanka Smith MD [address] [place], [place] 515121 PCP - General Family Medicine 12/22/17 Regulo Mendoza MD [address] [place] [address] Primary Staff Physician Nephrology 06/12/21 Regrind Mill Operator Relationship Specialty Start Date End Date Priyanka Smith MD [address] [place], [place] 882701 PCP - General Family Medicine 12/22/17 Regulo Mendoza MD [address] [place], [place] 163191 Primary Staff Physician Nephrology 06/12/21 Regrind Mill Operator Relationship Specialty Start Date End Date Priyanka Smith MD [address] [place], [place] 164421 PCP - General Family Medicine 12/22/17 Regulo Mendoza MD [address] [place], [place] 392501 Primary Staff Physician Nephrology 06/12/21 Regrind Mill Operator Relationship Specialty Start Date End Date Priyanka Smith MD [address] [place], [place] 034781 PCP - General Family Medicine 12/22/17 Regulo Mendoza MD [address] [place], [place] 437761 Primary Staff Physician Nephrology 06/12/21 Regrind Mill Operator Relationship Specialty Start Date End Date Pryianka Smith MD [address] [place], [place] 807371 PCP - General Family Medicine 12/22/17 Regrind Mill Operator Relationship Specialty Start Date End Date Priyanka Smith MD [address] [place], [place] 641791 PCP - General Family Medicine 12/22/17 Regulo Mendoza MD [address] [place], [place] 247451 Primary Staff Physician Nephrology 06/12/21 Regrind Mill Operator Relationship Specialty Start Date End Date Priyanka Smith MD [address] [place], [place] 743581 PCP - General Family Medicine 12/22/17 Regulo Mendoza MD [address] [place], [place] 005721 Primary Staff Physician Nephrology 06/12/21 Regrind Mill Operator Relationship Specialty Start Date End Date Priyanka Smith MD [address] [place], [place] 268981 PCP - General Family Medicine 12/22/17 Regulo Mendoza MD [address] [place], [place] 025611 Primary Staff Physician Nephrology 06/12/21 Regrind Mill Operator Relationship Specialty Start Date End Date Priyanka Smith MD [address] [place], [place] 87576691 PCP - General Family Medicine 12/22/17 Regulo Mendoza MD [address] [place] [address] Primary Staff Physician Nephrology 06/12/21 Regrind Mill Operator Relationship Specialty Start Date End Date BeverlyPriyanka treadwell [address] [place] [address] PCP - General Family Medicine 03/04/24 Katherine Bowen MD [address] [address] Surgeon Urology 03/05/24 Regrind Mill Operator Relationship Specialty Start Date End Date BeverlyPriyanka treadwell [address] [place] [address] PCP - General Family Medicine 03/04/24 Katherine Bowen MD [address] [address] Surgeon Urology 03/05/24 Regrind Mill Operator Relationship Specialty Start Date End Date BeverlyPriyanka treadwell [address] [place] [address] PCP - General Family Medicine 03/04/24 Katherine Bowen MD [address] [facility] [address] [place] [address] Surgeon Urology 03/05/24 Regrind Mill Operator Relationship Specialty Start Date End Date BeverlyPriyanka treadwell [address] [place] [address] PCP - General Family Medicine 03/04/24 Katherine Bowen MD [address] [facility] [address] [place] [address] Surgeon Urology 03/05/24 Regrind Mill Operator Relationship Specialty Start Date End Date Priyanka Smith [address] [place] [address] PCP - General Family Medicine 03/04/24 Katherine Bowen MD [address] [facility] 3 [place] [address] Surgeon Urology 03/05/24 Regrind Mill Operator Relationship Specialty Start Date End Date Priyanka Smith [address] [place] [address] PCP - General Family Medicine 03/04/24 Katherine Bowen MD [address] [facility] 3 [place] [address] Surgeon Urology 03/05/24 Audi Bae MD [address] [facility] [address] [place] [address] Surgeon Urology 03/13/24 Regrind Mill Operator Relationship Specialty Start Date End Date Priyanka Smith MD [address] [place] [address] PCP - General Family Medicine 12/22/17 Regulo Mendoza MD [address] [place] [address] Primary Staff Physician Nephrology 06/12/21 Regrind Mill Operator Relationship Specialty Start Date End Date Priyanka Smith MD [address] [place], [place] 942621 PCP - General Family Medicine 12/22/17 Regulo Mendoza MD [address] [place], [place] 549381 Primary Staff Physician Nephrology 06/12/21 Regrind Mill Operator Relationship Specialty Start Date End Date Priyanka Smith MD [address] [place], [place] 598801 PCP - General Family Medicine 12/22/17 Regulo Mendoza MD [address] [place] [address] Primary Staff Physician Nephrology 06/12/21 Regrind Mill Operator Relationship Specialty Start Date End Date Priyanka Smith MD [address] [place], [place] 763441 PCP - General Family Medicine 12/22/17 Regulo Mendoza MD [address] [place] [address] Primary Staff Physician Nephrology 06/12/21 Regrind Mill Operator Relationship Specialty Start Date End Date Priyanka Smith [address] [place] [address] PCP - General Family Medicine 03/04/24 Katherine Bowen MD [address] [facility] [address] [place] [address] Surgeon Urology 03/05/24 Audi Bae MD [address] [place] [address] Surgeon Urology 03/13/24 Regrind Mill Operator Relationship Specialty Start Date End Date Priyanka Smith [address] [place] [address] PCP - General Family Medicine 03/04/24 Katherine Bowen MD [address] [place] [address] Surgeon Urology 03/05/24 Audi Bae MD [address] [place] [address] Surgeon Urology 03/13/24 Phong Blake MD [address] [place] [id number] Surgeon Urology 03/24/24 Regrind Mill Operator Relationship Specialty Start Date End Date Priyanka Smith MD [address] [place] [address] PCP - General Family Medicine 12/22/17 Regulo Mendoza MD [address] [place] [address] Primary Staff Physician Nephrology 06/12/21 Regrind Mill Operator Relationship Specialty Start Date End Date Priyanka mSith [address] [place] [address] PCP - General Family Medicine 03/04/24 Katherine Bowen MD [address] [facility] [address] [place] [address] Surgeon Urology 03/05/24 Audi Bae MD [address] [place] [address] Surgeon Urology 03/13/24 Phong Blake MD [address] [facility] [address] [place] [address] Surgeon Urology 03/24/24 Regrind Mill Operator Relationship Specialty Start Date End Date Priyanka Smith MD [address] [place], [place] 685031 PCP - General Family Medicine 12/22/17 Regulo Mendoza MD [address] [place] [address] Primary Staff Physician Nephrology 06/12/21 Regrind Mill Operator Relationship Specialty Start Date End Date Priyanka Smith MD [address] [place], [place] 106091 PCP - General Family Medicine 12/22/17 Regulo Mendoza MD [address] [place] [address] Primary Staff Physician Nephrology 06/12/21 Regrind Mill Operator Relationship Specialty Start Date End Date Priyanka Smith MD [address] [place] [address] PCP - General Family Medicine 12/22/17 Regulo Mendoza MD [address] [place], [place] 386201 Primary Staff Physician Nephrology 06/12/21 Regrind Mill Operator Relationship Specialty Start Date End Date Priyanka Smith MD [address] [place], [place] 726071 PCP - General Family Medicine 12/22/17 Regulo Mendoza [address] [place] [address] Primary Staff Physician Nephrology 06/12/21 Jacqueline Valadez APRN.SOLAR PANEL TECHNICIAN [address] [place] [address] Branch Customer Service Representative Family Medicine 04/23/24 Juwan Land APRN.SOLAR PANEL TECHNICIAN [address] [place] [address] Branch [facility] 05/02/24 Regrind Mill Operator Relationship Specialty Start Date End Date Priyanka Smith MD [address] [place] [address] PCP - General Family Medicine 12/22/17 Regulo Mendoza MD [address] [place] [address] Primary Staff Physician Nephrology 06/12/21 Jacqueline Valadez APRN.SOLAR PANEL TECHNICIAN [address] [place] [address] Branch Customer Service Representative Family Medicine 04/23/24 Juwan Land APRN.SOLAR PANEL TECHNICIAN [address] [place] [address] Branch Customer [facility] 05/02/24 Regrind Mill Operator Relationship Specialty Start Date End Date Priyanka Smith MD [address] [place] [address] PCP - General Family Medicine 12/22/17 Regulo Mendoza MD [address] [place] [address] Primary Staff Physician Nephrology 06/12/21 Jacqueline Valadez APRN.SOLAR PANEL TECHNICIAN [address] [place] [address] Branch Customer Service Representative Family Medicine 04/23/24 Juwan Land 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 [address] [place] [address] Branch [facility] 05/02/24 Regrind Mill Operator Relationship Specialty Start Date End Date Priyanka Smith MD [address] [place] [address] PCP - General Family Medicine 12/22/17 Regulo Mendoza MD [address] [place] [address] Primary Staff Physician Nephrology 06/12/21 Jacqueline Valadez, 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 [address] [place] [address] Branch Customer Service Representative Family Medicine 04/23/24 Juwan Land, 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 [address] [place] [address] Branch Customer [facility] 05/02/24 Regrind Mill Operator Relationship Specialty Start Date End Date Priyanka Smith MD [address] [place] [address] PCP - General Family Medicine 12/22/17 Regulo Mendoza MD [address] [place] [address] Primary Staff Physician Nephrology 06/12/21 Jacqueline Valadez APRN.SOLAR PANEL TECHNICIAN [address] [place] [address] Branch Customer Service Representative Family [facility] 04/23/24 Juwan Land APRN.SOLAR PANEL TECHNICIAN [address] [place] [address] Branch Customer Service Representative [facility] 05/02/24 Regrind Mill Operator Relationship Specialty Start Date End Date Priyanka Smith MD [address] [place] [address] PCP - General Family Medicine 12/22/17 Regulo Mendoza MD [address] [place] [address] Primary Staff Physician Nephrology 06/12/21 Jacqueline Valadez APRN.SOLAR PANEL TECHNICIAN [address] [place] [address] Branch Customer Service Representative Family [facility] 04/23/24 Juwan Land APRN.SOLAR PANEL TECHNICIAN [address] [place] [address] Branch [facility] 05/02/24 Regrind Mill Operator Relationship Specialty Start Date End Date Priyanka Smith MD [address] [place] [address] PCP - General Family Medicine 12/22/17 Regulo Mendoza MD [address] [place] [address] Primary Staff Physician Nephrology 06/12/21 Jacqueline Valadez APRN.SOLAR PANEL TECHNICIAN [address] [facility] [place] [address] Branch Customer Service Representative Family [facility] 04/23/24 Juwan Land APRN.SOLAR PANEL TECHNICIAN [address] [place] [address] Branch [facility] 05/02/24 Regrind Mill Operator Relationship Specialty Start Date End Date Priyanka Smith MD [address] [place] [address] PCP - General Family Medicine 12/22/17 Regulo Mendoza MD [address] [place] [address] Primary Staff Physician Nephrology 06/12/21 Jacqueline Valadez APRN.SOLAR PANEL TECHNICIAN [address] [place] [address] [facility] 04/23/24 Juwan Land APRN.SOLAR PANEL TECHNICIAN [address] [place] [address] [facility] 05/02/24 Regrind Mill Operator Relationship Specialty Start Date End Date Priyanka Smith MD [address] [place] [address] PCP - General Family Medicine 12/22/17 Regulo Mendoza MD [address] [place] [address] Primary Staff Physician Nephrology 06/12/21 Jacqueline Valadez APRN.SOLAR PANEL TECHNICIAN [address] [place] [address] [facility] 04/23/24 Juwan Land APRN.SOLAR PANEL TECHNICIAN [address] [place] [address] [facility] 05/02/24 Regrind Mill Operator Relationship Specialty Start Date End Date Priyanka Smith MD [address] [place] [address] PCP - General Family Medicine 12/22/17 Regulo Mendoza MD [address] [place] [address] Primary Staff Physician Nephrology 06/12/21 Jacqueline Valadez APRN.SOLAR PANEL TECHNICIAN [address] [place] [address] [facility] 04/23/24 Juwan Land APRN.SOLAR PANEL TECHNICIAN [address] [place] [address] [facility] 05/02/24 Regrind Mill Operator Relationship Specialty Start Date End Date Priyanka Smith MD [address] [place] [address] PCP - General Family Medicine 12/22/17 Regulo Mendoza MD [address] [place] [address] Primary Staff Physician Nephrology 06/12/21 Jacqueline Valadez APRN.SOLAR PANEL TECHNICIAN [address] [place] [address] [facility] 04/23/24 Juwan Land APRN.SOLAR PANEL TECHNICIAN [address] [place] [address] [facility] 05/02/24 Regrind Mill Operator Relationship Specialty Start Date End Date Priyanka Smith MD [address] [place] [address] PCP - General Family Medicine 12/22/17 Regulo Mendoza MD [address] [place] [address] Primary Staff Physician Nephrology 06/12/21 Jacqueline Valadez, 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 [address] [place] [address] [facility] 04/23/24 Juwan Land APRN.SOLAR PANEL TECHNICIAN [address] [place] [address] [facility] 05/02/24 Regrind Mill Operator Relationship Specialty Start Date End Date Priyanka Smith MD [address] [place] [address] PCP - General Family Medicine 12/22/17 Regulo Mendoza MD [address] [place] [address] Primary Staff Physician Nephrology 06/12/21 Jacqueline Valadez APRN.SOLAR PANEL TECHNICIAN [address] [place] [address] [facility] 04/23/24 Juwan Land APRN.SOLAR PANEL TECHNICIAN [address] [place] [address] [facility] 05/02/24 Regrind Mill Operator Relationship Specialty Start Date End Date Priyanka Smith MD [address] [place] [address] PCP - General Family Medicine 12/22/17 Regulo Mendoza MD [address] [place] [address] Primary Staff Physician Nephrology 06/12/21 Jacqueline Valadez, HAILE.SOLAR PANEL TECHNICIAN [address] [place] [address] [facility] 04/23/24 Juwan Land APRN.SOLAR PANEL TECHNICIAN [address] [place] [address] [facility] 05/02/24 Regrind Mill Operator Relationship Specialty Start Date End Date Priyanka Smith MD [address] [place] [address] PCP - General Family Medicine 12/22/17 Regulo Mendoza MD [address] [place] [address] Primary Staff Physician Nephrology 06/12/21 Jacqueline Valadez APRN.SOLAR PANEL TECHNICIAN [address] [place] [address] Branch Customer Service Representative [facility] 04/23/24 uJwan Land APRN.SOLAR PANEL TECHNICIAN [address] [place] [address] Branch Customer Service Representative [facility] 05/02/24 Regrind Mill Operator Relationship Specialty Start Date End Date Priyanka Smith MD [address] [place] [address] PCP - General Family Medicine 12/22/17 Regulo Mendoza MD [address] [place] [address] Primary Staff Physician Nephrology 06/12/21 Jacqueline Valadez APRN.SOLAR PANEL TECHNICIAN [address] [place] [address] Branch Customer Service Representative [facility] 04/23/24 Juwan Land APRN.SOLAR PANEL TECHNICIAN [address] [place] [address] Branch Customer Service Representative [facility] 05/02/24 Regrind Mill Operator Relationship Specialty Start Date End Date Priyanka Smith MD [address] [place] [address] PCP - General Family Medicine 12/22/17 Regulo Mendoza MD [address] [place] [address] Primary Staff Physician Nephrology 06/12/21 Jacqueline Valadez APRN.SOLAR PANEL TECHNICIAN [address] [place] [address] Branch Customer Service Representative Family [facility] 04/23/24 Juwan Land APRN.SOLAR PANEL TECHNICIAN [address] [place] [address] Branch Customer Service Representative [facility] 05/02/24 Regrind Mill Operator Relationship Specialty Start Date End Date Priyanka Smith MD [address] [place] [address] PCP - General Family Medicine 12/22/17 Regulo Mendoza MD [address] [place] [address] Primary Staff Physician Nephrology 06/12/21 Jacqueline Valadez APRN.SOLAR PANEL TECHNICIAN [address] [place] [address] Branch Customer Service Representative Family [facility] 04/23/24 Juwan Land APRN.SOLAR PANEL TECHNICIAN [address] [place] [address] Branch Customer Service Representative [facility] 05/02/24 Regrind Mill Operator Relationship Specialty Start Date End Date Priyanka Smith MD [address] [place] [address] PCP - General Family Medicine 12/22/17 Regulo Mendoza MD [address] [place] [address] Primary Staff Physician Nephrology 06/12/21 Jacqueline Valadez APRN.SOLAR PANEL TECHNICIAN [address] [place] [address] Branch Customer Service Representative Family Medicine 04/23/24 Juwan Land APRN.SOLAR PANEL TECHNICIAN [address] [place] [address] Branch Customer Service Representative Family [facility] 05/02/24 Regrind Mill Operator Relationship Specialty Start Date End Date Priyanka Smith MD [address] [place] [address] PCP - General Family Medicine 12/22/17 Regulo Mendoza MD [address] [place] [address] Primary Staff Physician Nephrology 06/12/21 Jacqueline Valadez APRN.SOLAR PANEL TECHNICIAN [address] [place] [address] Branch Customer Service Representative Family [facility] 04/23/24 Juwan Land APRN.SOLAR PANEL TECHNICIAN [address] [place] [address] Branch Customer Service Representative [facility] 05/02/24 Regrind Mill Operator Relationship Specialty Start Date End Date Priyanka Smith MD [address] [place] [address] PCP - General Family Medicine 12/22/17 Regulo Mendoza MD [address] [place] [address] Primary Staff Physician Nephrology 06/12/21 Jacqueline Valadez APRN.SOLAR PANEL TECHNICIAN [address] [place] [address] Branch Customer Service Representative Family Medicine 04/23/24 Juwan Land APRN.SOLAR PANEL TECHNICIAN [address] [place] [address] Branch Customer Service Representative Family Medicine 05/02/24 Regrind Mill Operator Relationship Specialty Start Date End Date Priyanka Smith MD [address] [place] [address] PCP - General Family Medicine 12/22/17 Regulo Mendoza MD [address] [place] [address] Primary Staff Physician Nephrology 06/12/21 Jacqueline Valadez APRN.SOLAR PANEL TECHNICIAN [address] [place] [address] Branch Customer Service Representative Family Medicine 04/23/24 Juwan Land APRN.SOLAR PANEL TECHNICIAN [address] [place] [address] Branch Customer Service Representative Family Medicine 05/02/24 Regrind Mill Operator Relationship Specialty Start Date End Date Priyanka Smith MD [address] [place] [address] PCP - General Family Medicine 12/22/17 Regulo Mendoza MD [address] [place] [address] Primary Staff Physician Nephrology 06/12/21 Jacqueline Valadez APRN.SOLAR PANEL TECHNICIAN [address] [place] [address] Branch Customer Service Representative Family Medicine 04/23/24 Juwan Land APRN.SOLAR PANEL TECHNICIAN [address] [place] [address] Branch Customer Service Representative Family Medicine 05/02/24 Regrind Mill Operator Relationship Specialty Start Date End Date Priyanka Smith MD [address] [facility] [place] [address] PCP - General Family Medicine 12/22/17 Regulo Mendoza MD [address] [facility] [place] [address] Primary Staff Physician Nephrology 06/12/21 Jacqueline Valadez 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 [address] [facility] [place] [address] Branch Customer Service Representative Family Medicine 04/23/24 Juwan Land APRN.SOLAR PANEL TECHNICIAN [address] [facility] [place] [address] Branch Customer Service Representative Family Medicine 05/02/24 Regrind Mill Operator Relationship Specialty Start Date End Date Priyanka Smith MD [address] [place] [address] PCP - General Family Medicine 12/22/17 Regulo Mendoza MD [address] [facility] [place] [address] Primary Staff Physician Nephrology 06/12/21 Jacqueline Valadez 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 [address] [facility] [place] [address] Branch Customer Service Representative Family Medicine 04/23/24 Juwan Land APRN.SOLAR PANEL TECHNICIAN [address] [facility] [place] [address] Branch Customer Service Representative Family Medicine 05/02/24 Regrind Mill Operator Relationship Specialty Start Date End Date Priyanka Smith MD [address] [place] [address] PCP - General Family Medicine 12/22/17 Regulo Mendoza MD [address] [facility] [place] [address] Primary Staff Physician Nephrology 06/12/21 Jacqueline Valadez, 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 [address] [place] [address] Branch Customer Service Representative Family Medicine 04/23/24 Juwan Land 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 [address] [place] [address] Branch Customer Service Representative Family Medicine 05/02/24 Regrind Mill Operator Relationship Specialty Start Date End Date Priyanka Smith MD [address] [place] [address] PCP - General Family Medicine 12/22/17 Regulo Mendoza MD [address] [facility] [place] [address] Primary Staff Physician Nephrology 06/12/21 Jacqueline Valadez, 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 [address] [place] [address] Branch Customer Service Representative Family Medicine 04/23/24 Juwan Land, 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 [address] [place] [address] Branch Customer Service Representative Family Medicine 05/02/24 Regrind Mill Operator Relationship Specialty Start Date End Date Priyanka Smith MD [address] [place] [address] PCP - General Family Medicine 12/22/17 Regulo Mendoza MD [address] [place] [address] Primary Staff Physician Nephrology 06/12/21 Jacqueline Valadez APRN.SOLAR PANEL TECHNICIAN [address] [place] [address] Branch Customer Service Representative Family Medicine 04/23/24 Juwan Land APRN.SOLAR PANEL TECHNICIAN [address] [place] [address] Branch Customer Service Representative Family Medicine 05/02/24 Regrind Mill Operator Relationship Specialty Start Date End Date Priyanka Smith MD [address] [place] [address] PCP - General Family Medicine 12/22/17 Regulo Mendoza MD [address] [place] [address] Primary Staff Physician Nephrology 06/12/21 Juwan Land APRN.SOLAR PANEL TECHNICIAN [address] [place] [address] Branch Customer Service Representative [facility] 05/02/24 Regrind Mill Operator Relationship Specialty Start Date End Date Priyanka Smith MD [address] [place] [address] PCP - General Family Medicine 12/22/17 Regulo Mendoza MD [address] [place] [address] Primary Staff Physician Nephrology 06/12/21 Juwan Land APRN.SOLAR PANEL TECHNICIAN [address] [place] [address] Branch Customer Service Representative Family [facility] 05/02/24 Team Status: Active Member Role Status [...] October 11, 2024 End: October 11, 2024 Regrind Mill Operator Relationship Specialty Start Date End Date Priyanka Smith MD [address] [place] [address] PCP - General Family Medicine 12/22/17 Regulo Mendoza MD [address] [place] [address] Primary Staff Physician Nephrology 06/12/21 Jacqueline Valadez APRN.SOLAR PANEL TECHNICIAN [address] [place] [address] Branch Customer Service Representative Family Medicine 04/23/24 09/27/24 Juwan Land APRN.SOLAR PANEL TECHNICIAN [address] [place], [place] [address] Branch Customer Service Representative Family Medicine 05/02/24 Regrind Mill Operator Relationship Specialty Start Date End Date Priyanka Smith MD [address] [place] [address] PCP - General Family Medicine 12/22/17 Regulo Mendoza MD [address] [place] [address] Primary Staff Physician Nephrology 06/12/21 Jacqueline Valadez 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 [address] [place] [address] Branch Customer Service Representative Family Medicine 04/23/24 09/27/24 Juwan Land, 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 [address] [place] [address] Branch Customer Service Representative [facility] 05/02/24 Regrind Mill Operator Relationship Specialty Start Date End Date Piryanka Smith MD [address] [place] [address] PCP - General Family Medicine 12/22/17 Regulo Mendoza MD [address] [place] [address] Primary Staff Physician Nephrology 06/12/21 Juwan Land, 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 [address] [place] [address] Branch [facility] 05/02/24 Regrind Mill Operator Relationship Specialty Start Date End Date Priyanka Smith MD [address] [place] [address] PCP - General Family Medicine 12/22/17 Regulo Mendoza MD [address] [place] [address] Primary Staff Physician Nephrology 06/12/21 Juwan Land APRN.SOLAR PANEL TECHNICIAN [address] [place] [address] Branch Customer Service Representative Family [facility] 05/02/24 Regrind Mill Operator Relationship Specialty Start Date End Date Priyanka Smith MD [address] [place], [place] [address] [phone] PCP - General Family Medicine 12/22/17 Regulo Mendoza MD [address] [place] [address] Primary Staff Physician Nephrology 06/12/21 Juwan Land APRN.SOLAR PANEL TECHNICIAN [address] [place] [address] Branch Customer Service Representative [facility] 05/02/24 Regrind Mill Operator Relationship Specialty Start Date End Date Priyanka Smith MD [address] [place], [place] [address] [phone] PCP - General Family Medicine 12/22/17 Regulo Mendoza MD [address] [place] [address] Primary Staff Physician Nephrology 06/12/21 Juwan Land APRN.SOLAR PANEL TECHNICIAN [address] [place] [address] Branch Customer Service Representative Family [facility] 05/02/24 Regrind Mill Operator Relationship Specialty Start Date End Date Priyanka Smith MD [address] [place] [address] PCP - General Family Medicine 12/22/17 Regulo Mendoza MD [address] [place] [address] Primary Staff Physician Nephrology 06/12/21 Juwan Land, 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 [address] [place] [address] Branch Customer Service Representative Family Medicine 05/02/24 Team Status: Inactive Member Role Status Dates Dr. Priyanka Smith MD Primary Care Provider Active Start: November 08, 2024 End: November 08, 2024 Dr. Priyanka Smith MD Referring Provider Active Start: November 08, 2024 End: November 08, 2024 KAUSHAL Alas Attending Provider Active Start: November 08, 2024 End: November 08, 2024 Regrind Mill Operator Relationship Specialty Start Date End Date Priyanka Smith MD [address] [place] [address] PCP - General Family Medicine 12/22/17 Regulo Mendoza MD [address] [place] [address] Primary Staff Physician Nephrology 06/12/21 Juwan Land, 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 [address] [facility], [place] [address] [phone] Branch Customer Service Representative [facility] Medicine 05/02/24 Regrind Mill Operator Relationship Specialty Start Date End Date Priyanka Smith MD [address] [place] [address] PCP - General Family Medicine 12/22/17 Regulo Mendoza MD [address] [place] [address] Primary Staff Physician Nephrology 06/12/21 Juwan Land APRN.SOLAR PANEL TECHNICIAN [address] [place] [address] Branch [facility] 05/02/24 Regrind Mill Operator Relationship Specialty Start Date End Date Priyanka Smith MD [address] [place], [place] [address] PCP - General Family Medicine 12/22/17 Regulo Mendoza MD [address] [place] [address] Primary Staff Physician Nephrology 06/12/21 Jacqueline Valadez APRN.SOLAR PANEL TECHNICIAN [address] [place] [address] Branch [facility] 04/23/24 09/27/24 Juwan Land APRN.SOLAR PANEL TECHNICIAN [address] [place] [address] Branch [facility] 05/02/24 Regrind Mill Operator Relationship Specialty Start Date End Date Priyanka Smith MD [address] [place] [address] PCP - General Family Medicine 12/22/17 Regulo Mendoza MD [address] [place] [address] Primary Staff Physician Nephrology 06/12/21 Juwan Land APRN.SOLAR PANEL TECHNICIAN [address] [place] [address] Branch [facility] 05/02/24 Regrind Mill Operator Relationship Specialty Start Date End Date Priyanka Smith MD [address] [place] [address] PCP - General Family Medicine 12/22/17 Regulo Mendoza MD [address] [place] [address] Primary Staff Physician Nephrology 06/12/21 Jacqueline Valadez 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 [address] [place] [address] Branch [facility] 04/23/24 09/27/24 Juwan Land, 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 [address] [place] [address] Branch [facility] 05/02/24 Regrind Mill Operator Relationship Specialty Start Date End Date Priyanka Smith MD [address] [place] [address] PCP - General Family Medicine 12/22/17 Regulo Mendoza MD [address] [place] [address] Primary Staff Physician Nephrology 06/12/21 Juwan Land APRN.SOLAR PANEL TECHNICIAN [address] [place] [address] Branch [facility] 05/02/24 Team Status: Active Member Role/Relationship [...] Referring Provider Active Start: December 22, 2024 Regrind Mill Operator Relationship Specialty Start Date End Date Priyanka Smith MD [address] [place] [address] PCP - General Family Medicine 12/22/17 Regulo Mendoza MD [address] [place] [address] Primary Staff Physician Nephrology 06/12/21 Juwan Land APRN.SOLAR PANEL TECHNICIAN [address] [place], [place] [address] Branch Customer Service Representative Family [facility] 05/02/24 Team Status: Inactive Member Role/Relationship Status [...] December 29, 2024 End: December 29, 2024 Regrind Mill Operator Relationship Specialty Start Date End Date Priyanka Smith MD [address] [place], [place] [id number] PCP - General Family Medicine 12/22/17 Regulo Mendoza MD [address] [place], [place] [address] Primary Staff Physician Nephrology 06/12/21 Juwan Land APRN.SOLAR PANEL TECHNICIAN [address] [place], [place] [address] Branch Customer Service Representative Family [facility] 05/02/24 Team Status: Inactive Member Role/Relationship Status Dates Dr. Gonzalo Day MD Primary Care Provider Acti ve Start: January 21, 2025 End: January 22, 2025 Dr. Michelle Mosher DO Emergency Provider Active Start: January 21, 2025 End: January 22, 2025 Regrind Mill Operator Relationship Specialty Start Date End Date Priyanka Smith [address] [place] [address] PCP - General Family Medicine 03/04/24 Katherine Bowen MD [address] [facility] [address] [place] [address] Surgeon Urology 03/05/24 Audi Bae MD [address] [facility] [address] [place] [address] Surgeon Urology 03/13/24 Phong Blake MD [address] [facility] [address] [place] [id number] Surgeon Urology 03/24/24 Regrind Mill Operator Relationship Specialty Start Date End Date Priyanka Smith MD [address] [place] [address] PCP - General Family Medicine 12/22/17 Reguol Mendoza MD [address] [place] [address] Primary Staff Physician Nephrology 06/12/21 Juwan Land APRN.SOLAR PANEL TECHNICIAN [address] [place] [address] Branch Customer Service Representative Family Medicine 05/02/24 Regrind Mill Operator Relationship Specialty Start Date End Date Jasmyne Day MD [address] [place] [address] PCP - General Family Medicine 01/30/25 Regulo Mendoza MD Primary Staff Physician Nephrology 06/12/21 Juwan Land APRN.SOLAR PANEL TECHNICIAN [address] [place] [address] Branch Customer Service Representative Family Medicine 05/02/24 Team Status: Active Member Role/Relationship Status Dates Dr. Gonzalo Day MD Primary care physician Act leif Team Status: Inactive Member Role/Relationship Status Dates Dr. Priyanka Smith MD Primary care physician Active Start: November 08, 2024 End: November 08, 2024 Dr. Priyanka Smith MD Referring Provider Active Start: November 08, 2024 End: November 08, 2024 KAUSHAL Alas Attending physician Active Start: November 08, 2024 End: November 08, 2024 Team Status: Inactive Member Role/Relationship Status Dates Dr. Aditya Cota DO Attending physician Active Start: December 22, 2024 End: December 22, 2024 Dr. Gonzalo Day MD Primary care physician Act leif Start: December 22, 2024 End: December 22, 2024 Dr. Gonzalo Day MD Referring Provider Active Start: December 22, 2024 End: December 22, 2024 Team Status: Active Member Role/Relationship Status Dates Dr. Aditya Cota DO Attending physician Active Start: December 22, 2024 Dr. Aditya Cota DO Nurse Practitioner Active Start: December 22, 2024 Dr. Gonzalo Day MD Primary care physician Act leif Start: December 22, 2024 Dr. Gonzalo Day MD Referring Provider Active Start: December 22, 2024 Team Status: Inactive Member Role/Relationship Status Dates Dr. Gonzalo Day MD Primary care physician Act leif Start: December 29, 2024 End: December 29, 2024 Dr. Gonzalo Day MD Referring Provider Active Start: December 29, 2024 End: December 29, 2024 KAUSHAL Alas Attending physician Active Start: December 29, 2024 End: December 29, 2024 Team Status: Inactive Member Role/Relationship Status Dates Dr. Gonzalo Day MD Primary care physician Act leif Start: December 29, 2024 End: December 29, 2024 KAUSHAL Alas Attending physician Active Start: December 29, 2024 End: December 29, 2024 KAUSHAL Alas Referring Provider Active Start: December 29, 2024 End: December 29, 2024 Team Status: Inactive Member Role/Relationship Status Dates Dr. Gonzalo Day MD Primary care physician Act leif Start: January 21, 2025 End: January 22, 2025 Dr. Michelle Mosher DO Attending physician Active Start: January 21, 2025 End: January 22, 2025 Dr. Michelle Mosher DO Emergency Depart ent Physician Active Start: January 21, 2025 End: January 22, 2025 Team Status: Inactive Member Role/Relationship Status Dates Dr. Gonzalo Day MD Primary care physician Act leif Start: February 16, 2025 End: February 16, 2025 Dr. Gonzalo Day MD Referring Provider Active Start: February 16, 2025 End: February 16, 2025 Dr. Aditya Cota DO Attending physician Active Start: February 16, 2025 End: February 16, 2025 Team Status: Active Member Role/Relationship Status Dates Dr. Gonzalo Day MD Primary care physician Act leif Start: February 16, 2025 Dr. Gonzalo Day MD Referring Provider Active Start: February 16, 2025 Dr. Aditya Cota DO Attending physician Active Start: February 16, 2025 Dr. Aditya Cota DO Nurse Practitioner Active Start: February 16, 2025 Team Status: Inactive Member Role/Relationship Status Dates Dr. Aditya Cota DO Attending physician Active Start: December 22, 2024 End: December 22, 2024 Dr. Gonzalo Day MD Primary care physician Act leif Start: December 22, 2024 End: December 22, 2024 Dr. Gonzalo Day MD Referring Provider Active Start: December 22, 2024 End: December 22, 2024 Team Status: Active Member Role/Relationship Status Dates Dr. Aditya Cota DO Attending physician Active Start: December 22, 2024 Dr. Aditya Cota DO Nurse Practitioner Active Start: December 22, 2024 Dr. Gonzalo Day MD Primary care physician Act leif Start: December 22, 2024 Dr. Gonzalo Day MD Referring Provider Active Start: December 22, 2024 Team Status: Inactive Member Role/Relationship Status Dates Dr. Gonzalo Day MD Primary care physician Act leif Start: December 29, 2024 End: December 29, 2024 Dr. Gonzalo Day MD Referring Provider Active Start: December 29, 2024 End: December 29, 2024 KAUSHAL Alas Attending physician Active Start: December 29, 2024 End: December 29, 2024 Team Status: Inactive Member Role/Relationship Status Dates Dr. Gonzalo Day MD Primary care physician Act leif Start: December 29, 2024 End: December 29, 2024 KAUSHAL Alas Attending physician Active Start: December 29, 2024 End: December 29, 2024 KAUSHAL Alas Referring Provider Active Start: December 29, 2024 End: December 29, 2024 Team Status: Inactive Member Role/Relationship Status Dates Dr. Gonzalo Day MD Primary care physician Act leif Start: January 21, 2025 End: January 22, 2025 Dr. Michelle Mosher DO Attending physician Active Start: January 21, 2025 End: January 22, 2025 Dr. Michelle Mosher DO Emergency Depart ent Physician Active Start: January 21, 2025 End: January 22, 2025 Team Status: Inactive Member Role/Relationship Status Dates Dr. Gonzalo Day MD Primary care physician Act leif Start: February 16, 2025 End: February 16, 2025 Dr. Gonzalo Day MD Referring Provider Active Start: February 16, 2025 End: February 16, 2025 Dr. Aditya Cota DO Attending physician Active Start: February 16, 2025 End: February 16, 2025 Team Status: Active Member Role/Relationship Status Dates Dr. Gonzalo Day MD Primary care physician Act leif Start: February 16, 2025 Dr. Gonzalo Day MD Referring Provider Active Start: February 16, 2025 Dr. Aditya Cota DO Attending physician Active Start: February 16, 2025 Dr. Aditya Cota DO Nurse Practitioner Active Start: February 16, 2025 Team Status: Inactive Member Role/Relationship Status Dates Dr. Gonzalo Day MD Primary care physician Act leif Start: March 02, 2025 End: March 02, 2025 Dr. Gonzalo Day MD Referring Provider Active Start: March 02, 2025 End: March 02, 2025 KAUSHAL Alas Attending physician Active Start: March 02, 2025 End: March 02, 2025 Reason for Visit (unrecogniz ed section and content) Reason Comments PT Progress Note Specialty Diagnoses / Procedures Referred By Contac t Referred To Contact [facility] Diagnoses Overactive bladder Procedures CONSULT TO PHYSICAL THERAPY PHYSICAL THERAPY EVALUATION HIGH COMPLEX 45 MINS Tariq Brooks, HAILE.SOLAR PANEL TECHNICIAN [facility] [address] [place] [address] Referral ID Status Reason Start Date Expiration Date Visits Requested Visits Authorized [id number] Authorized Auto-Generat ed Referral 05/17/2024 05/16/2025 99 99 Reason Comments Physical Therapy Reason Comments Follow Up Specialty Diagnoses / Procedures Referred By Contac t Referred To Contact UROL GOVERNMENT EMPLOYEE Diagnoses OAB (overactive bladder) Procedures BOTULINUM TOXIN A PER 1 UNIT CYSTOURETHROSCOPY INJ CHEMODENERVATION BLADDER Wiley Benitez MD [address] [facility] [address] [place] [address] Home Appliance Tech U[facility] [address] [address] Referral ID Status Reason Start Date Expiration Date V isits Requested Visits Authorized [id number] Authorized 11/04/2023 11/02/2024 5 5 Reason Comments Spirometry Specialty Diagnoses / Procedures Referred By Contac t Referred To Contact [facility] Diagnoses NSIP (nonspecific interstitial pneumonia) ([facility]) Procedures SPIROMETRY BASELINE ONLY SPIROMETRY WO BRONCHODILATOR Sam Cuenca MD [address] [place] [address] [facility] [place] [address] [place] [id number] Referral ID Status Reason Start Date Expiration Date V isits Requested Visits Authorized [id number] Closed Auto-Generate d Referral 08/11/2021 03/13/2022 1 1 Reason Comments Established Patient Reason Comments UTI Reason Comments Orders Reason Onset Date Comments Refill Request 11/26/2021 Reason Comments Radiology US Specialty Diagnoses / Procedures Referred By Contac t Referred To Contact US IMAGING Diagnoses Cystocele, midline Urinary urgency Urinary frequency Procedures US FEMALE PELVIS TRANSVAG US TRANSVAGINAL Charis Lopez APRN.CNM [address] [place] [place] [address] Us Imaging Referral ID Status Reason Start Date Expiration Date V isits Requested Visits Authorized [id number] Closed Auto-Generate d Referral 11/26/2021 12/26/2022 1 [...] MDM 60-74 MINUTES Charis Lopez APRN.CNM [address] [place] [place] [address] Referral ID Status Reason Start Date Expiration Date V isits Requested Visits Authorized [id number] Closed PCP Requested Referral Auto-Generated Referral 11/26/2021 [...] [facility] Diagnoses ILD (interstitial lung disease) (HCC) Procedures SPIROMETRY BASELINE ONLY SPMTRY W/VC EXPIRATORY ANYA W/WO MXML VOL VNTKaren Prado MD [address] [place] [address] Respiratory [place] [facility] [place] [address] Referral ID Status Reason Start Date Expiration Date V isits Requested Visits Authorized [id number] Closed Auto-Generate d Referral 10/30/2022 11/29/2023 1 1 Specialty Diagnoses / Procedures Referred By Contac t Referred To Contact [facility] Diagnoses ILD (interstitial lung disease) ([facility]) Procedures LUNG VOLUMES Karen Alcantara MD [address] [facility] [place] [address] Respiratory [place] [facility] [place] [address] Referral ID Status Reason Start Date Expiration Date V isits Requested Visits Authorized [id number] Closed Auto-Generate d Referral 11/05/2022 05/16/2023 1 1 Reason Onset Date Comments Refill Request 11/25/2022 Reason Comments Anesthesia Consult Reason Onset Date Comments Refill Request 02/08/[address] Specialty Diagnoses / Procedures Referred By Contac t Referred To Contact CT IMAGING Diagnoses Gross hematuria Procedures CT UROGRAM WO/W IVCON CT ABD & PELVIS W/O CONTRST 1+ BODY John Billings MD [address] [place] [address] Ct Imaging [facility]95 Referral ID Status Reason Start Date Expiration Date V isits Requested Visits Authorized [id number] Closed Auto-Generate d Referral 05/22/2022 07/31/2022 1 1 Specialty Diagnoses / Procedures Referred By Contac t Referred To Contact CT IMAGING Diagnoses Interstitial pulmonary disease (HCC) NSIP (nonspecific interstitial pneumonia) ([facility]) Procedures CT CHEST WO IVCON DIAGNOSTIC COMPUTED TOMOGRAPHY THORAX W/O CNTRST Karen Alcantara MD [address] [facility] [place] [address] [place] [address] Referral ID Status Reason Start Date Expiration Date V isits Requested Visits Authorized [id number] Closed Auto-Generate d Referral 10/13/2022 12/12/2022 1 1 Specialty Diagnoses / Procedures Referred By Contac t Referred To Contact CT IMAGING Diagnoses Lung nodules Procedures CT CHEST WO IVCON DIAGNOSTIC COMPUTED TOMOGRAPHY THORAX W/O Karen Werner MD [address] [place] [address] [place] [address] Referral ID Status Reason Start Date Expiration Date V isits Requested Visits Authorized [id number] Closed Auto-Generate d Referral 2022 05/25/2022 1 [...] THORAX W/O Karen Werner MD [address] [place] [address] [place] [address] Referral ID Status Reason Start Date Expiration Date V isits Requested Visits Authorized [id number] Closed Auto-Generate d Referral 11/01/2023 10/15/2024 1 1 Reason Comments Kidney Stones Reason Comments Insurance Authorization Prior Auth Denie d: Appeal Requested Reason Comments Fuse Maker - Other Reason Onset Date Comments Appointment 11/22/2023 Reason Comments Well Woman Specialty Diagnoses / Procedures Referred By Contac t Referred To Contact UROL GOVERNMENT EMPLOYEE Diagnoses OAB (overactive bladder) Procedures BOTULINUM TOXIN A PER 1 UNIT CYSTOURETHROSCOPY INJ CHEMODENERVATION BLADDER Wiley Benitez MD [address] [address] Home Appliance Tech Urol [facility] [address] [address] Reason Comments Post-Op Visit Kidney stone Reason Comments New Patient Evaluation Specialty Diagnoses / Procedures Referred By Contac t Referred To Contact Neurology Diagnoses Tremor Procedures CONSULT TO NEUROLOGY OFFICE/OUTPATIENT NEW HIGH MDM 60 MINUTES Jacqueline Valadez, 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 [address] [place] [address] Referral ID Status Reason Start Date Expiration Date V isits Requested Visits Authorized [id number] Closed PCP Requested Referral 10/14/2023 10/13/2024 1 [...] To Contact Endocrinology Diagnoses 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 (HCC) 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 Procedures CONSULT TO ENDOCRINOLOGY OFFICE/OUTPATIENT [facility] MDM 60 MINUTES Priyanka Smith MD [address] [place] [address] Referral ID Status Reason Start Date Expiration Date V isits Requested Visits Authorized [id number] Closed PCP Requested Referral 03/23/2024 03/23/2025 1 1 Reason Onset Date Comments Refill Request 05/22/2024 Reason Comments Non-Chemotherapy Treatment Reason Comments Acute Visit Bilat knee pain when getting up from sitting Reason Comments Tremor Specialty Diagnoses / Procedures Referred By Contac t Referred To Contact Diagnoses Dyskinesia, tardive Procedures PROVIDER ORDERED FOLLOW UP OFFICE/OUTPATIENT [facility] MDM 60 MINUTES Bogdan Roberts MD [address] [place] [address] Referral ID Status Reason Start Date Expiration Date V isits Requested Visits Authorized [id number] Closed PCP Requested Referral 01/13/2024 04/12/2024 1 1 Reason Comments Results Knee Xray Reason Comments Interstiticial cystitis Specialty Diagnoses / Procedures Referred By Contac t Referred To Contact CT IMAGING Diagnoses Interstitial pulmonary disease (HCC) NSIP (nonspecific interstitial pneumonia) (HCC) Procedures CT CHEST WO IVCON DIAGNOSTIC COMPUTED TOMOGRAPHY THORAX W/O Karen Werner MD [address] [place] [address] Ct Imaging [place] [address] Referral ID Status Reason Start Date Expiration Date V isits Requested Visits Authorized [id number] Closed Auto-Generate d Referral 06/12/2024 05/17/2025 1 [...] RETROPERITONEAL REAL TIME W/IMAGE COMPLETE Maira Chen, 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 [address] [place] [address] Phone: tel: fax: US IM[facility]ING [place] [address] Referral ID Status Reason Start Date Expiration Date V isits Requested Visits Authorized [id number] Closed Auto-Generate d Referral 08/10/2024 09/08/2025 1 1 Reason Comments Fall Reason Onset Date Comments Results 09/01/2024 Reason Comments ACTH elevation Reason Onset Date Comments Results 09/11/2024 Reason Comments Fall [address] - reports unsure if the [...] ANYA W/WO MXML VOL VNTJ Becca Mir, 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 [address] [place] [address] Phone: tel: fax: Respiratory [address] [address] Referral ID Status Reason Start Date Expiration Date V isits Requested Visits Authorized [id number] Closed Auto-Generate d Referral 06/20/2024 07/20/2025 1 1 Specialty Diagnoses / Procedures Referred By Contac t Referred To Contact [facility] Diagnoses NSIP (nonspecific interstitial pneumonitis) (HCC) Procedures LUNG VOLUMES Becca Mir, 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 [address] [facility] [place] [address] Phone: tel: fax: Respiratory [address] [address] Referral ID Status Reason Start Date Expiration Date V isits Requested Visits Authorized [id number] Closed Auto-Generate d Referral 10/15/2024 05/16/2025 1 1 Specialty Diagnoses / Procedures Referred By Contac t Referred To Contact [facility] Diagnoses NSIP (nonspecific interstitial pneumonitis) (HCC) Procedures LUNG DIFFUSION CAPACITY (DLCO) DIFFUSING CAPACITY Becca Mir, 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 [address] [facility] [place] [address] Phone: tel: fax: [address] [address] Referral ID Status Reason Start Date Expiration Date V isits Requested Visits Authorized [id number] Closed Auto-Generate d Referral 06/20/2024 07/20/2025 1 1 Reason Comments Established Patient NSIP Reason Onset Date Comments Refill Request 10/17/2024 Reason Comments Follow Up Reason Comments Patient Question Refill Request Reason Comments Parkinsonism, unspecified Parkinsonism t ype Specialty Diagnoses / Procedures Referred By Contac t Referred To Contact Diagnoses Parkinsonism, unspecified Parkinsonism type (HCC) Procedures PROVIDER ORDERED FOLLOW UP OFFICE/OUTPATIENT [facility] 60 MINUTES Bogdan Roberts MD [address] [place] [id number] Phone: tel: fax: Referral ID Status Reason Start Date Expiration Date V isits Requested Visits Authorized [id number] Closed PCP Requested Referral 08/03/2024 11/01/2024 1 1 Reason Comments Blood Pressure Saw Neurology on 11/16. Concerns of Orthostatic hypotension. States her BP dropped 20 points. Some intermittent dizziness with standing. 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 Started to bleed heavily Wednesday morning going thru approx 70 maxi pads. +clots. Received 1 unit of PRBCs @ [facility] but didn't receive full second unit d/t increased temperature. Per EMS she became hypotensive for 90s/50s and was given a 500cc bolus. Pt has no other complaints, just the bleeding. Specialty Diagnoses / Procedures Referred By Kim t Referred To Contact Diagnoses Vaginal bleeding vaginal bleeding Procedures ... Jennie Chang, DO [address] [place] [address] Phone: tel: fax: [facility] Medical Surgical Unit [facility] [address] [place] [address] Phone: tel: Referral ID Status Reason Start Date Expiration Date Visits Re quested Visits Authorized [id number] 1 1 Reason Comments Hospital F/U [facility]. [facility]. 01/22-01/26. Severe vaginal bleeding. INFORMATION SOURCE (unrecogn ized section and content) DATE CREATED AUTHOR 02/01/2023 [facility] DATE CREATED AUTHOR AUTHOR'S ORGANIZ ATION 08/07/2024 [facility] DATE CREATED AUTHOR AUTHOR'S ORGANIZ ATION 02/25/2025 [facility] DATE CREATED AUTHOR AUTHOR'S ORGANIZ ATION 03/07/2025 [facility] DATE CREATED AUTHOR AUTHOR'S ORGANIZ ATION 03/28/2025 [facility] Scheduled Active and Recently Administ ered Medications (unrecognized section and content) Medication Order 03/07/2024 03/08/2024 03/09/2024 amitriptyline (Elavil) tablet 50 mg 50 mg, Oral, Nightly, First dose on 03/04/24 at 2100 0903 (MAR Hold - Provider: Automatic Transfer Provider - Reason: Patient not available)1116 (MAR Unhold - Provider: Automatic Transfer Provider)2122 (Given - Provider: Teri Alejo, JUAN) 2055 (Given - Provider: Neelima Peng, RN) aspirin EC tablet 81 mg 81 mg, Oral, Daily, First dose on 03/04/24 at 1615, Do not crush, chew, or split., On hold since 03/04/2024 at 1606 until manually unheld 0800 (Dose Auto Held) 0800 (Dose Auto Held) 0800 (Dose Auto Held)1955 (Unheld by provider - Provider: Automatic Discharge Provider) Calcium Carb-Cholecalciferol 500-5 MG-MCG per tablet 1 tablet 1 tablet, Oral, 2 times daily, First dose on 03/04/24 at 2100 0903 ([facility] Hold - Provider: Automatic Transfer Provider - Reason: Patient not available)1116 ([facility] Unhold - Provider: Automatic Transfer Provider)1152 (Given - Provider: Almita Burroughs, JUAN)1459 (Not Given - Provider: Trina Crawley RN - Reason: Other)2122 (Given - Provider: Teri Alejo RN) 0832 (Given - Provider: Karen Garcia, JUAN)2055 (Given - Provider: Neelima Peng, JUAN) 0832 [...] RN)0710 (Stopped - Provider: Almita Burroughs RN)0903 ([facility] Hold - Provider: Automatic Transfer Provider - Reason: Patient not available)1116 ([facility] Unhold - Provider: Automatic Transfer Provider) 0537 [...] Provider: Neelima Peng RN)0614 (Stopped - Provider: Neelima Peng RN) fluconazole (Diflucan) tablet 200 mg [...] RN) 0831 (Given - Provider: Karen Garcia RN)2058 (Given - Provider: Neelima Peng RN) 0832 (Given - Provider: Karen Garcia RN) heparin injection 5,000 Units 5,000 Units, SubCUTAneous, Every 8 hours scheduled (3 times per day), First dose on 03/04/24 at 2200 0641 (Given - Provider: Teri Alejo RN)0903 (J[facility] Hold - Provider: Automatic Transfer Provider - Reason: Patient not available)1116 (MAR Unhold - Provider: Automatic Transfer Provider)1353 (Given - Provider: Almita Burroughs RN)2123 (Given - Provider: Teri Alejo RN) 0537 (Given - Provider: Teri Alejo RN)1357 (Given - Provider: Karen Garcia RN)205 (Given - Provider: Neelima Peng RN) 0543 (Given - Provider: Neelima Peng RN)1427 (Given - Provider: Karen Garcia RN) levothyroxine (Synthroid, Levoxyl) tablet 100 mcg 100 [...] RN) 0543 (Given - Provider: Neelima Peng, JUAN) melatonin tablet 3 mg 3 mg, Oral, Nightly, First dose on 03/04/24 at 2100 0903 (MAR Hold - Provider: Automatic Transfer Provider - Reason: Patient not available)111 (MAR Unhold - Provider: Automatic Transfer Provider)2100 [...] Teri Alejo RN)1743 (Given - Provider: Karen Garcia, JUAN) 0543 (Given - Provider: Neelima Peng RN)1800 (Canceled Entry - Provider: Automatic Discharge Provider - Comment: Automatically canceled at discontinue of medication order) pantoprazole (ProtoNix) EC tablet 40 mg (CANCELED) 40 mg, Oral, 2 times daily before meals, First dose on Wed03/05/24 at 0700, Do not crush, chew, or split. 0638 (Given - Provider: Teri Alejo RN)0903 (JUL Hold - Provider: Automatic Transfer Provider - Reason: Patient not available)1116 (MAR Unhold - Provider: Automatic Transfer Provider)1458 (Given - Provider: Trina Crawley RN) predniSONE (Deltasone) tablet 5 mg 5 mg, Oral, Daily, First dose on Wed03/04/24 at 1615 0903 (MAR Hold - Provider: Automatic Transfer Provider - Reason: Patient not available)1116 (MAR Unhold - Provider: Automatic Transfer Provider)1152 (Given - Provider: Almita Burroughs RN) 0831 (Given - Provider: Karen Garcia, JUAN) 0832 (Given - Provider: Karen Garcia RN) sodium chloride 0.9% (NS) flush 5-40 mL 5-40 mL, IntraVENous, Every 12 hours, First dose on Wed03/04/24 at 1445, For Line Patency: Peripheral IV [...] Garcia, RN)1055 (Rate/Dose Verify - Provider: Karen Garcia RN)1200 (Stopped - Provider: Angie Talley RN) [...] from all sources in 24 hours. 0903 (JUL Hold - Provider: Automatic Transfer Provider - Reason: Patient not available)1116 (JUL Unhold - Provider: Automatic Transfer Provider) acetaminophen (Tylenol) tablet 650 mg(Linked Group 1) 650 mg, Oral, Every 6 hours PRN, mild pain (1-3), fever, For temp greater than 100.4 F (38 C), Starting on 03/04/24 at 1428, Maximum dose of acetaminophen is 4000 mg from all sources in 24 hours. 0903 (JUL Hold - Provider: Automatic Transfer Provider - Reason: Patient not available)1116 ([facility] Unhold - Provider: Automatic Transfer Provider) naloxone (Narcan) injection 0.4 mg 0.4 mg, IntraVENous, Every 5 min PRN, opioid reversal, respiratory depression, Starting on 03/05/24 at 1659, +++ For RR <10, pinpoint pupils, over sedation for opioid reversal - MUST notify communications instructor provider immediately after first dose, may give IM or SQ if no IV access +++ 0903 ([facility] Hold - Provider: Automatic Transfer Provider - Reason: Patient not available)111 ([facility] Unhold - Provider: Automatic Transfer Provider) polyethylene glycol (PEG) 3350 (Miralax) packet 17 g 17 g, Oral, Daily PRN, constipation, Starting on 03/04/24 at 1428, 1st line for treatment of constipation - give scheduled if no bowel movement in past 24 hours. 902 ([facility] Hold - Provider: Automatic Transfer Provider - Reason: Patient not available)1115 ([facility] Unhold - Provider: Automatic Transfer Provider) promethazine [...] less into rate field of order. 0903 ([facility] Hold - Provider: Automatic Transfer Provider - Reason: Patient not available)111 ([facility] Unhold - Provider: Automatic Transfer Provider) sodium [...] or Central Line = 20 mL/lumen 0903 ([facility] Hold - Provider: Automatic Transfer Provider - Reason: Patient not available)1116 ([facility] Unhold - Provider: Automatic Transfer Provider) sucralfate [...] Provider - Reason: Patient not available)1116 ([facility] Unhold - Provider: Automatic Transfer Provider) Linked [...] Bender RN)1449 (Continued by Anesthesia - Provider: HAILE Eddy STATISTICAL TYPIST)1619 (Stopped - Provider: HAILE Ruiz CRNA) lactated [...] 100 mg, Oral, Nightly, First dose on Wed01/25/25 at 2100 2118 (Given - Provider: Emely Garza RN) amoxicillin-clavulana te (Augmentin) 875-125 MG per tablet 1 tablet 1 tablet (875 mg), Oral, 2 times daily, First dose on Wed01/26/25 at 0930, Suspected Indication (Select all that apply): Urinary Tract Infection 09 (Canceled Entry - Provider: Automatic Discharge Provider - Comment: Automatically canceled at discontinue of medication order) carbidopa-levodopa CR (Sinemet CR) 25-100 MG ER tablet 1 tablet (CANCELED) 1 tablet, Oral, 3 times daily, First dose on Wed01/22/25 at 1230, Do not crush, chew, or split. 0915 (Not Given - Provider: Sharri Ribeiro RN - Reason: NPO)1309 (JUL Hold - Provider: Automatic Transfer Provider - Reason: Patient not available)1400 (Dose Auto Held - Provider: Automatic Transfer Provider)1656 (JUL Unhold - Provider: Automatic Transfer Provider)215 (Given - Provider: Bailey Siu RN) 1006 (Not Given - Provider: Andrew Bal RN - Reason: See Provider Order) carbidopa-levodopa CR (Sinemet CR) 25-100 MG ER tablet 1 tablet 1 tablet, Oral, 3 times daily, First dose (after last modification) on Varsha 01/25/25 at 1000, Do not crush, chew, or split. 1007 (Given - Provider: Andrew Bal, JUAN)1445 (Given - Provider: Andrew Bal, JUAN)1830 (Given - Provider: Sharri Ribeiro RN) 0829 (Given - Provider: Karo Ruffin RN)1400 (Canceled Entry - Provider: Automatic Discharge Provider - Comment: Automatically canceled at discontinue of medication order) cefTRIAXone (Rocephin) 1,000 mg in sodium chloride 0.9 % 50 mL IVPB Mini-Bag Plus (CANCELED) 1,000 mg, IntraVENous, at 100 mL/hr, Administer over 30 Minutes, Every 24 hours, First dose on Varsha 01/25/25 at 1400, Mini-Bag Plus bag, Suspected Indication (Select all that apply): Urinary Tract Infection 183 (New Bag - Provider: Sharri Ribeiro RN)193 (Stopped - Provider: Emely Garza RN) docusate sodium (Colace) capsule 100 mg 100 mg, Oral, 2 times daily, First dose on Wed01/22/25 at 2315, Do not crush or break. 0915 (Not Given - Provider: Sharri Ribeiro RN - Reason: NPO)1309 (JUL Hold - Provider: Automatic Transfer Provider - Reason: Patient not available)1656 (JUL Unhold - Provider: Automatic Transfer Provider)215 (Not Given - Provider: Bailey Siu RN - Reason: Patient/family refused) 1007 (Given - Provider: Andrew Bal RN)2118 (Given - Provider: Emely Garza, RN) 0828 (Given - Provider: Karo Ruffin, JUAN) [...] 0900 (Dose Auto Held - Provider: Spike Srtange DO)1424 (Unheld by provider - Provider: Automatic [...] Rosales, JUAN) 0500 (Given - Provider: Emely Garza, JUAN) piperacillin-tazobact am (Zosyn) 4,500 mg in sodium chloride 0.9 % 100 mL IVPB Mini-Bag Plus (CANCELED) 4,500 mg, IntraVENous, at 33.3 mL/hr, Administer over 3 Hours, Every 6 hours, First dose on Wed01/23/25 at 1200, Dosage or interval has been adjusted per [facility]&T Renal Dosing policy. Mini-Bag Plus bag, Suspected Indication (Select all that apply): Urinary Tract Infection 0243 (Stopped - Provider: Jesse Sewell, RN)0515 (New Bag - Provider: Jesse Sewell, RN)0914 (Stopped - Provider: Sharri Ribeiro, RN)1220 (New Bag - Provider: Sharri Ribeiro, RN)1309 (JUL Hold - Provider: Automatic Transfer Provider - Reason: Patient not available)1656 (JUL Unhold - Provider: Automatic Transfer Provider)1846 (New Bag - Provider: Sharri Ribeiro, RN)1939 (Stopped - Provider: Sharri Ribeiro, RN)2152 (Stopped - Provider: Bailey Siu RN) 0319 (New Bag - Provider: Gayatri Rosales, JUAN)0614 (Stopped - Provider: Gayatri Rosales, RN)1006 (New Bag - Provider: Andrew Bal, RN)1430 (Stopped - Provider: Andrew Bal, JUAN) Continuous Medication Order 01/24/2025 01/25/2025 01/26/2025 lactated [...] provider if no further options ordered. 1309 ([facility] Hold - Provider: Automatic Transfer Provider - Reason: Patient not available)1656 ([facility] Unhold - Provider: Automatic Transfer Provider) ondansetron [...] blister pack until just before administering. 1309 ([facility] Hold - Provider: Automatic Transfer Provider - Reason: Patient not available)1656 ([facility] Unhold - Provider: Automatic Transfer Provider) polyethylene glycol (PEG) 3350 (Miralax) packet 17 g 17 g, Oral, Daily PRN, constipation, Starting on Wed01/22/25 at 0855, 1st line for treatment of constipation - give scheduled if no bowel movement in past 24 hours. 1309 ([facility] Hold - Provider: Automatic Transfer Provider - Reason: Patient not available)1656 ([facility] Unhold - Provider: Automatic Transfer Provider) sodium [...] BE BASED ON THE PRIMARY CLINICAL RECORDS. [facility] [employer] [facility]. provides no warranty or guarantee of the accuracy or completeness of information in this document.
[2025-05-09] MEDS: Lactated Ringers 1,000 ML 15 ML IV (07:22)
--- NOTE | 2025-05-09 07:31 | PRE.ANES_ITS ---
ASA Classification* ASA Classification ASA Classification: 2 Assessment & Plan Anesthesia* Anesthesia Assessment Anesthesia Assessment: Discussed sedation and/or anesthesia options, risks, benefits, and alternatives with patient/parents/legal guardian/POA. Questions invited. The patient/parents/legal guardian/POA seems to understand and agrees to proceed with anesthesia plan. Reviewed the physical assessment, medical history, allergy history and patient home medications list prior to surgery/procedure/anesthetic and documented any changes. Performed airway and anesthesia risk assessments. Anesthesia Type Anesthesia Type: MAC (GA bkup) Anesthesia Focused Assessment* Temperature: 98.0 F Pulse Rate: 74 Blood Pressure: 108/76 Respiratory Rate: 18 Pulse Ox: 100 Airway Assessment Mouth opens: >3 cm Mallampati Score: II Labs Anesthesia Preop lab: CBC WBC, (4.4-11.0) 8.2 K/mm3 05/01/25, 15:49 RBC, (4.2-5.4) 3.81 M/mm3 L 05/01/25, 15:49 Hgb, (12.0-15.0) 9.4 g/dL L 05/01/25, 15:49 Hct, (37-47) 30.4 % L 05/01/25, 15:49 Plt Count, (150-450) 317 K/mm3 05/01/25, 15:49 CHEMISTRY Potassium, (3.3-5.1) 3.6 mmol/L 05/01/25, 15:49 Sodium, (133-145) 139 mmol/L 05/01/25, 15:49 Magnesium, (1.6-2.6) 2.4 mg/dL 03/03/24, 14:20 Phosphorus, (2.5-4.9) 2.7 mg/dL 12/26/17, 05:40 BUN, (4-19) 27 mg/dL H 05/01/25, 15:49 Creatinine, (0.70-1.20) 2.17 mg/dL H 05/01/25, 15:49 Glucose, (70-99) 95 mg/dL 05/01/25, 15:49 TSH, (0.358-3.740) 2.500 uIU/mL 03/03/24, 14:20 COAG Pre-Assessment Diagnosis/Proposed Procedure Planned Operative Procedure(s): CYSTO, BILATERAL STENT Anesthesia History Anesthesia History - polishing 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 When Was Last Pacemaker Check QUESTION #4 FULL TEXT: You/Your Family Experience fever (hyperthermia) with Anesthesia Last Oral Intake Last Oral intake: Last Oral Intake NPO since 05:45 05/09/25 06:58 Meds taken in AM with sips of Yes 05/09/25 06:58 water? Meds patient instructed to levothyroxine 05/09/25 06:58 take am of surgery PONV PONV - polishing machine tender: PONV - polishing machine tender Female Yes 05/08/25 13:43 HX of Motion Sickness No 05/08/25 13:43 HX of N/V After Surgery No 05/08/25 13:43 Non-Smoker Yes 05/08/25 13:43 Duration of Surgery greater No 05/08/25 13:43 than 60 minutes Number of Risk Factors 2 05/08/25 13:43 PONV Score Moderate Risk 05/08/25 13:43 Height & Weight Height & Weight: Anesthesia: Height & Weight Height 5 ft 5 in 05/09/25 06:58 Weight: 72 kg 05/09/25 06:58 Body Mass Index (BMI) 26.4 05/09/25 06:58 Respiratory Assessment Respiratory Assessment - polishing machine tender: Respiratory Tract Infection Hx - polishing machine tender Hx Respiratory Tract Infection No 05/08/25 13:43 STOP Sleep Apnea STOP Sleep Apnea - polishing machine tender: STOP Sleep Apnea - polishing machine tender Hx Hypertension No 05/08/25 13:43 Hx Sleep Apnea No 05/08/25 13:43 CPAP BIPAP Do you snore loudly (louder No 05/08/25 13:43 than talking or can be heard Do you often feel tired/ No 05/08/25 13:43 fatigued/ sleepy during daytime? Has anyone observed you stop No 05/08/25 13:43 breathing during sleep? STOP Results Negative 05/08/25 13:43 QUESTION #5 FULL TEXT : Do you snore loudly (louder than talking or can be heard through closed doors)? 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 Specify any problems FEVER 05/08/25 13:43 Hx of Preganancy in last 3 No 05/08/25 13:43 Months Nurse Filling Out Transfusion [email or web address] 05/08/25 13:43 & Questions: Date: 05/08/25 05/08/25 13:43 Time: 13:45 05/08/25 13:43 Patient unable to answer at this time (ie. confused, unrespo /Reproduction History /Reproductive History - polishing machine tender: /Reproductive Hx- polishing machine tender Hx Now Gestational Age (in weeks): EDC: Hx Hx Para Hx Section SAB No 05/08/25 13:43 Does the father of the baby or his family experience fever w Father of the baby Malignant Hypertension history comment Active Medications Active Medications: Current Medications Generic Name Dose Route Start Last Admin Trade Name Freq PRN Reason Stop Dose Admin Cefazolin Sodium 2 gm/ Sodium 110 mls @ 200 mls/hr 05/09/25 07:00 Chloride IV 05/09/25 07:32 INTRAOP ONE Lactated Ringer's 1,000 mls @ 15 mls/hr 05/09/25 07:00 05/09/25 07:22 IV 15 mls/hr .Q48H SHANTA Administration PFSH Medical History Loss of hearing Walker as ambulation aid Low iron Injury of head and neck History of hiatal hernia Gastric reflux Back pain Parkinson's disease Orthostatic hypotension History of steroid therapy Wears glasses Post-menopausal Cancer Arthritis History of renal disease DVT (deep venous thrombosis) Easy bruising Syncope Dietary restriction History of diverticulitis Interstitial emphysema of lung Non-smoker History of edema Overactive bladder Intramural leiomyoma of uterus Esophageal dysmotility Abnormal Pap smear of vagina and vaginal HPV Positive P-ANCA titer Hypothyroid Home Medications ?Medication ?Instructions ?Recorded ?Last Taken ?Type cholecalciferol (vitamin D3) 25 1,000 unit PO BID 06/1705/08/25 History mcg (1,000 unit) tablet (Vitamin D3) mycophenolate mofetil 500 mg 500 mg PO BID 03/04/24 History tablet (CellCept) levothyroxine 100 mcg capsule 100 mcg PO QDAY 04/06/24 05/09/25 History Lactobacillus acidophilus 250 500 mmu cells PO DAILY 0 06/02/24 05/08/25 History million cell capsule (Probiotic Acidophilus) carbidopa 25 mg-levodopa 100 mg 1 tab PO TID 10/11/24 05/08/25 History tablet (Sinemet) carbidopa 25 mg tablet 25 mg PO TID 11/08/24 History multivitamin (Daily Multi-Vitamin 1 tab PO DAILY 12/1905/08/25 History tablet) fludrocortisone 0.1 mg tablet 0.2 mg PO DAILY 12/29/24 05/08/25 History ferrous sulfate 325 mg (65 mg 325 mg PO DAILY 02/12/25 05/08/25 History iron) tablet (Iron (ferrous sulfate)) fludrocortisone 0.1 mg tablet 0.1 mg PO QHS 02/12/25 1 07/09/24 History pantoprazole 20 mg tablet,delayed 20 mg PO QDAY #30 ta bs 03/21/25 05/08/25 Rx release lubiprostone 24 mcg capsule 24 mcg PO BID #60 caps 11/0805/08/25 Rx acetaminophen 500 mg capsule 1,000 mg PO Q6H PRN pain 05/01/25 04/27/25 History amitriptyline 100 mg tablet 100 mg PO QHS 05/01/25 History cephalexin 500 mg capsule 500 mg PO Q6 #40 CAPSULES 05/08/25 Rx potassium citrate 10 mEq (1,080 10 meq PO BID 05/01/25 05/08/25 History mg) tablet,extended release estradiol 0.01% (0.1 mg/gram) 1 g vaginal MOTH 5 Unknown History vaginal cream Allergy/AdvReac Type Severity Reaction Status Date / Time cetirizine (From [facility]) Allergy Intermediate Rash Verified 05/09/25 06:54 erythromycin base AdvReac Intermediate Diarrhea Verified 05/09/25 06:54 azithromycin AdvReac Mild Diarrhea Verified 05/09/25 06:54 Family History Mother Thyroid disorder Hypertension Father Heart disease Hypertension COPD (chronic obstructive pulmonary disease) Surgical History History of hand surgery History of lithotripsy Hx of biopsy S/P laparoscopic appendectomy Hx of colonoscopy History of esophagogastroduodenoscopy (EGD) Hx of tubal ligation Hx of bladder repair surgery H/O thymectomy History of spinal fusion History of cholecystectomy History of colon resection Social History Smoking Status: Never smoker alcohol intake: current alcohol intake frequency: holidays/special occasions only Review of Systems (Anesthesia) ROS Narrative System reviewed and no additional complaints, except as documented.
[2025-05-09] MEDS: Cefazolin 1 GM/5 ML Vial 2 GM IV (08:41)
--- NOTE | 2025-05-09 08:44 | DCINST_ITS ---
Discharge Instructions DC O2, CPAP, BIPAP needs Home O2 Discharge instructions: No Dressing / Incision Discharge Activity: Return to Normal Activity Follow Up Care Please Follow Up With: Daniel Johnson MD When: Call [phone] for an appointment Test Results: Test results from this visit will be discussed in further detail at your follow- up appointment, if applicable. Discharge Plan Admission Primary Reason for Your Visit: bilateral stents Attending Provider: Daniel Johnson Primary Care Provider: Gonzalo Dasilva Instructions Print Language: Khmer Discharge Orders/Prescriptions Prescriptions: Continued levothyroxine 100 mcg capsule 100 mcg PO QDAY carbidopa-levodopa [Sinemet] 25-100 mg tablet 1 tab PO TID carbidopa 25 mg tablet 25 mg PO TID cholecalciferol (vitamin D3) [Vitamin D3] 1,000 UNIT tablet 1,000 unit PO BID mycophenolate mofetil [CellCept] 500 mg tablet 500 mg PO BID estradiol 0.01 % (0.1 mg/gram) cream 1 g vaginal MOTH Probiotic Acidophilus 250 million cell capsule 500 mmu cells PO DAILY multivitamin [Daily Multi-Vitamin] Tablet 1 tab PO DAILY fludrocortisone 0.1 mg tablet 0.2 mg PO DAILY fludrocortisone 0.1 mg tablet 0.1 mg PO QHS ferrous sulfate [Iron (ferrous sulfate)] 325 mg (65 mg iron) tablet 325 mg PO DAILY potassium citrate 10 mEq (1,080 mg) tablet extended release 10 meq PO BID amitriptyline 100 mg tablet 100 mg PO QHS acetaminophen 500 mg capsule 1,000 mg PO Q6H PRN (Reason: pain) cephalexin 500 mg capsule 500 mg PO Q6 Qty: 40 0RF pantoprazole 20 mg tablet,delayed release (DR/EC) 20 mg PO QDAY Qty: 30 2RF lubiprostone 24 mcg capsule 24 mcg PO BID Qty: 60 2RF Referrals / Follow Up: Gonzalo Dasilva MD [Primary Care Provider, Family Practice] Daniel Johnson MD [Med Staff - Active Staff, Urology] Disposition Disposition (needs filled in before D/C Order can be placed): Home, Self Care
[2025-05-09] MEDS: Lidocaine 1% (5 ml sdv) 5 ML Vial IV (08:45)
[2025-05-09] MEDS: fentaNYL 100 MCG/2 ML Ampul IV (08:45)
--- NOTE | 2025-05-09 09:15 | OP.PCM_ITS ---
Operative Report (Standard) Operative Information Date of Procedure: 05/09/25 Pre-Operative Diagnosis: Bilateral hydronephrosis and acute on chronic renal insufficiency Post-Operative Diagnosis: The same Surgery/Procedure Performed: Cystoscopy and bilateral retrograde pyelograms and bilateral stent placement program manager transportation: No Type of Anesthesia: General RN Documented Start/Stop Times: Operation Date: 05/09/25 08:40 Case Time Into Pre-Op 05/09/25 06:48 Out of Pre-Op 05/09/25 08:35 Anesthesia Start 05/09/25 08:39 Into Room 05/09/25 08:39 Procedure Start 05/09/25 08:56 Procedure End 05/09/25 09:06 Procedure Start Time: 08:56 Procedure Stop Time: 09:06 Select all DRAINS/GRAFTS/IMPLANTS that apply: Drains Drain details: 6 Ukrainian by 26 cm stent on both sides Estimated Blood Loss: None Specimen collected: No Description of surgery: Indication this is a 65-year-old female has a very strange history of having lots of bladder problems I reviewed her recent CAT scan that she had done here at [facility] and demonstrated a very thickened circular looking bladder no obvious masses or cancer seen on the CAT scan she had been seeing another urologist up at [place] and in the past she had stents on both sides for a long time. She also has a significant problem with bladder control and had InterStim therapy placed but then had this removed because it did not work. She relates having difficulties with bladder control and she has acute renal insufficiency with a rising creatinine ultrasound was done that demonstrated bilateral hydronephrosis and CAT scan was done demonstrates bilateral hydronephrosis with hydroureter down to her bladder but I do not see any clear obstruction no stones no tumors no clear reason why she has hydronephrosis bilaterally. Because of the sudden onset of hydronephrosis and rising creatinine I saw her yesterday as a work in because she was not able to see her urologist in [place] acutely that she been following for a long time but we saw her yesterday as a working and today I put her on the schedule for cystoscopy and bilateral stent placement Patient was taken back to the operating room after induction of anesthesia she was placed in dorsolithotomy position the urethrovaginal area were prepped and draped in usual sterile fashion she had a normal pelvic exam normal urethra bima nual exam and in feel any masses or any tumors that I can appreciate she did have a very thickened bladder we then went inside the bladder with a 21 Ukrainian rigid Olympus cystoscope and did an inspection bladder was very unusual she had a very thickened circular looking bladder in the top of the bladder she had a lot of redness and erythema throughout the bladder dawn which was not normal no obvious tumors or masses within the bladder. Then inspected the trigone the trigone was not normal she had like barely dilated ureteral orifices on both sides possible from chronic stent or from reflux. It is possible she has a very neurogenic bladder with reflux hydronephrosis but with the sudden increase in creatinine and hydronephrosis I think the best thing to do at this point is to place stents bilaterally. So using a 5 Ukrainian open-ended catheter cannulated the left ureteral orifice with the catheter and the wire advanced the catheter up the ureter and then performed a retrograde pyelogram again she had a very tortuosity of the ureter a lot of angulation and kinking and then she had a severe hydronephrosis on that left side so after the retrograde pyelogram was done then I put a wire up in the left kidney and then we backloaded the stent over the wire and then pushed the stent over the wire up into the left kidney once the stent was in good position I pulled the wire and the stent appeared to coil in the renal pelvis and in the bladder on the left side. So then at this point we went to the right side again identified the very dilated right ureteral orifice and I had a had a kink in it in the distal ureter and I cannulated this with the 5 Ukrainian open-ended catheter and a Glidewire 0.038 Glidewire advanced a wire up into the kidney and over the wire advanced the Pollick catheter we then pulled the wire out left the catheter in place and then performed a retrograde pyelogram contrast was injected into the kidney again a lot of torsional tortuosity in the ureter no clear obstruction stones or tumors seen and the ureter was tortuosity and a lot of hydronephrosis in the ureter hydronephrotic ureters and then severe hydronephrosis on the right side so advanced the wire up into the right side once the wire was in good position in the right kidney then I advanced by backloaded the stent onto the wire and then pushed the stent over the wire up into the kidney on the right side once it was a good position then I pulled the wire and the stent coiled in the kidney and in the bladder in good position I then drained the bladder patient's anesthetic was reversed the plan to see her back in about a month for checkup we will check her creatinine level at that point and see if her kidney function has improved and in the medical terminologist management is probably can to be to try to help her with her bladder function I think she has a neurogenic bladder and also will have to keep changing the stents every 3 months to keep her kidneys drained is much as possible and hopefully this will improve her creatinine but she understands no guarantees it will work. I spoke to her son on the phone let her him know the findings and I spoke to her family in the waiting room and she was taken back to the PACU in stable condition Surgical Findings: Very unusual thickened looking bladder with usually dilated distal ureteral orifices but a tortuosity in the ureters bilaterally and bilateral hydronephrosis stent placed bilaterally Complications Complications: No Admit VTE Documentation VTE Present on Admission: No VTE Mechan Device Prophylaxis: SCD's VTE Pharm Prophylaxis ordered?: No
--- NOTE | 2025-05-09 09:23 | PCM.POST.ANE ---
Anesthesia: Postop Eval I Current Vital Signs Temperature: 98.5 F Pulse Rate: 77 Blood Pressure: 128/72 Respiratory Rate: 16 Pulse Ox: 100 Oxygen Delivery Method: Room Air Assessment Airway patent: Yes Spontaneous unlabored respirations: Yes Mental status: Awake and Calm nausea: No Vomiting: No Anesthesia Complication: No Fluid Hydration Crystalloid volume administer (ml): 900 Total IV fluid infused: 900 Progress Note Anesthesia document: Postop Eval 1 completed: Yes
--- NOTE | 2025-05-09 10:59 | POSTOPAN2_ITS ---
Anesthesia Postop Eval I Sum Postop Eval Completion status Anesthesia document: Postop Eval 1 completed: Yes Anesthesia Postop Eval I Summary Anesthesia Postop Eval I Summary: Anesthesia Postop Eval I: Assessment Summary Airway patent Yes 05/09/25 09:23 COMMUNITY ENGAGEMENT COORDINATOR.[email or web address] Spontaneous unlabored Yes 05/09/25 09:23 COMMUNITY ENGAGEMENT COORDINATOR.[email or web address] respirations Mental status Awake,Calm 05/09/25 09:23 COMMUNITY ENGAGEMENT COORDINATOR.GDOTT nausea No 05/09/25 09:23 COMMUNITY ENGAGEMENT COORDINATOR.GDOTT Vomiting No 05/09/25 09:23 COMMUNITY ENGAGEMENT COORDINATOR.GDOTT Anesthesia Postop Eval I: Fluid Summary Crystalloid volume administer 900 05/09/25 09:23 COMMUNITY ENGAGEMENT COORDINATOR.GDOTT (ml) Colloids volume administered ( ml) Blood Product volume administered (ml) Total IV fluid infused 900 05/09/25 09:23 COMMUNITY ENGAGEMENT COORDINATOR.GDOTT Anesthesia Postop Eval I: Summary Notes Anesthesia Complication No 05/09/25 09:23 COMMUNITY ENGAGEMENT COORDINATOR.GDOTT Anesthesia Complication Comment: Post-operative progress note Anesthesia: Postop Eval II Evaluation Mental status: Awake Pain Level: 1 nausea: No Vomiting: No
--- NOTE | 2025-05-09 10:59 | PCM.POSTANE2 ---
Anesthesia Postop Eval I Sum Postop Eval Completion status Anesthesia document: Postop Eval 1 completed: Yes Anesthesia Postop Eval I Summary Anesthesia Postop Eval I Summary: Anesthesia Postop Eval I: Assessment Summary Airway patent Yes 05/09/25 09:23 FIBERGLASS [email or web address].[email or web address] Spontaneous unlabored Yes 05/09/25 09:23 FIBERGLASS ROLLER.GDOTT respirations Mental status Awake,Calm 05/09/25 09:23 FIBERGLASS ROLLER.GDOTT nausea No 05/09/25 09:23 FIBERGLASS ROLLER.GDOTT Vomiting No 05/09/25 09:23 FIBERGLASS ROLLER.GDOTT Anesthesia Postop Eval I: Fluid Summary Crystalloid volume administer 900 05/09/25 09:23 FIBERGLASS ROLLER.GDOTT (ml) Colloids volume administered ( ml) Blood Product volume administered (ml) Total IV fluid infused 900 05/09/25 09:23 FIBERGLASS ROLLER.GDOTT Anesthesia Postop Eval I: Summary Notes Anesthesia Complication No 05/09/25 09:23 FIBERGLASS ROLLER.GDOTT Anesthesia Complication Comment: Post-operative progress note Anesthesia: Postop Eval II Evaluation Mental status: Awake Pain Level: 1 nausea: No Vomiting: No
== END 2025-05-09 10:48 | disposition home or self-care (01) ==
LOC: SDC 06:33 → AC 06:34
PROVIDERS: PCP Family Medicine; Referring Provider Family Medicine; Visit Provider Urology
PROC: (CPT 52332; principal; 2025-05-09 08:30)
DX: N13.39 Other hydronephrosis (principal); G20.A1 Parkinson's disease without dyskinesia, without mention of fluctuations; N18.9 Chronic kidney disease, unspecified; N32.81 Overactive bladder; Z79.899 Other long term (current) drug therapy; Z87.440 Personal history of urinary (tract) infections; Z87.442 Personal history of urinary calculi
CPT/HCPCS: 52332; 00910; 76000; C1769; C2617; J2405

== ENCOUNTER 2025-05-15 08:51 | Outpatient (CLI) | payer MEDICARE, MEDICAID, SELFPAY ==
[2025-05-15 09:13] VITALS: BP 92/58; PULSE 104; RESP 16; TEMP 35.5; O2SAT 100; BMI 27.4
[2025-05-15] MEDS: Iron Sucrose Complex (Venofer) 200 MG in 0.9% NaCl 100 ML 220 MG IV (09:42)
[2025-05-15 10:41] VITALS: BP 102/60; PULSE 82; RESP 16; TEMP 35.8; O2SAT 100
== END 2025-05-15 23:59 | disposition home or self-care (01) ==
LOC: MEDOUTP 08:51
PROVIDERS: PCP Family Medicine
DX: N18.30 Chronic kidney disease, stage 3 unspecified (principal)
CPT/HCPCS: 96365; J1756; A4216